=== PATIENT | female | born 1955 | race Caucasian/White ===

== ENCOUNTER → 2017-02-22 | Outpatient (CLI) | payer MEDICARE, OTHER ==
[~2017-02-22] MED LIST: AMLO10TA PO; AMLO5TAB2 PO; ASP81CT PO; ASP81TEC PO; ATOR40TA PO; CA C1TAB78 PO; CHOL200041 PO; CINN500C2 PO; CLON0.1T PO; CLOP75TA PO; DIAZ5TAB PO; DOCU250C11 PO; FENO134C PO; FISH1CAP15 PO; FURO40TA4 PO; GABA300C PO; GLIP10TA13 PO; INSU100I14 SQ; ISM60TCR PO; LEVE1U SQ; LISI20TA PO; METF500T4 PO; METO100T2 PO; MTF500T PO; MTP50T PO; PNT40TEC PO; SIMV40TA4 PO; SIMV80TA3 PO; TRAM50TA2 PO; UBID100C44 PO
== END ==
LOC: CARD 11:38
PROVIDERS: ATTEND Internal Medicine Cardiovascular Disease
DX: I35.8 Other nonrheumatic aortic valve disorders (principal); R07.89 Other chest pain; E78.2 Mixed hyperlipidemia; I11.0 Hypertensive heart disease with heart failure; E78.1 Pure hyperglyceridemia; I51.7 Cardiomegaly; I34.0 Nonrheumatic mitral (valve) insufficiency
CPT/HCPCS: 93306

== ENCOUNTER → 2017-03-01 | Outpatient (CLI) | payer MEDICARE, OTHER ==
[~2017-03-01] MED LIST changes: +CATHETER FLUSH 10 ML SYR IV PRN; +REGADENOSON 0.4 MG/5 ML SYR (LEXISCAN) IV ONE
[2017-03-01 10:06] VITALS: BP 166/68
[2017-03-01 10:08] VITALS: BP 162/70
--- NOTE | 2017-03-01 20:04 | STRESS TEST ---
DATE OF SERVICE: 03/01/2017 LEXISCAN MYOVIEW STRESS TEST: REFERRING PHYSICIAN: Dr. Cabral. Baseline heart rate is 68. Baseline blood pressure 189/88, baseline EKG is sinus rhythm with no ischemic changes. IN SUMMARY: The patient received 10.2 mCi of technetium-99 Myoview and the resting images were obtained. Then, the patient received 0.4 mg of Lexiscan followed by 28.2 mCi of technetium-99 Myoview. Throughout the test, there were no EKG changes. The resting and stress images were reviewed and compared in the short axis, horizontal long axis, and vertical long axis views. Review of the images showed reversible ischemia involving the mid to apical anterior wall, anterolateral wall or anterior septum. SSS is 14. SDS 7. TID value 1.19. On the gated images, the left ventricle appeared to be prominent with end diastolic volume 101 mL end systolic volume 44 mL. Calculated ejection fraction 57%. CONCLUSION: 1. The patient tolerated Lexiscan well. 2. Baseline hypertension persisted throughout test. 3. Breast attenuation with reversible ischemia involving the anterior wall, anterolateral wall and anterior septum. 4. Normal left ventricular size with normal contractility. Calculated ejection fraction 57%. Job ID: [id number] DocumentID: [id number] Dictated Date: 03/01/2017 17:51:47 Congressional Representative Date: 03/01/2017 19:29:03 Dictated By: BOOM MILLER MD
== END ==
LOC: CARD 07:44
PROVIDERS: ATTEND Internal Medicine Cardiovascular Disease
DX: I35.8 Other nonrheumatic aortic valve disorders (principal); R07.89 Other chest pain; E78.2 Mixed hyperlipidemia; I11.9 Hypertensive heart disease without heart failure; E78.1 Pure hyperglyceridemia; I34.0 Nonrheumatic mitral (valve) insufficiency
CPT/HCPCS: 78452; 93017

== ENCOUNTER 2017-03-05 08:13 | Day surgery (SDC) | payer MEDICARE, OTHER ==
[2017-03-05] VITALS (15 sets, daily range): BP systolic 103–175; BP diastolic 55–86
[~2017-03-05] VITALS: Ht 162.6 cm; Wt 98.9 kg
[~2017-03-05 08:13] MED LIST changes: -CATHETER FLUSH 10 ML SYR IV PRN; -REGADENOSON 0.4 MG/5 ML SYR (LEXISCAN) IV ONE
--- OUTSIDE RECORDS SUMMARY | 2017-03-05 08:18 | XMS REPORT ---
Author Author GEE AMADO Organization [employer] Address Unknown Phone Unavailable Care Team Providers Care Crew Leader Gluing Name Role Phone GEE AMADO CP Unavailable Allergies No Known Allergies Problems Problem Type Condition Code Onset Dates Condition Status Problem Need for prophylactic vaccination and inoculation, Influenza V04.81 Active Problem Other and unspecified hyperlipidemia 272.4 Active Problem Chest pain, unspecified 786.50 Active Problem Other chronic pain 338.29 Active Problem Pain in joint, forearm 719.43 Active Problem Unspecified breast screening V76.10 Active Problem Diabetes mellitus without mention of complication, type II or unspecified type, not stated as uncontrolled 250.00 Active Problem Polyneuropathy in diabetes 357.2 Active Problem Pain in joint, hand 719.44 Active Problem Closed fracture of cervical vertebra, unspecified level without mention of spinal cord injury 805.00 Active Problem Unspecified essential hypertension 401.9 Active Problem Coronary atherosclerosis of unspecified type of vessel, [place] or graft 414.00 Active Problem Diabetes mellitus without mention of complication, type II or unspecified type, uncontrolled 250.02 Active Medications No Known Medications Results No Known Results Summary Purpose eClinicalWorks Submission
--- OUTSIDE RECORDS SUMMARY | 2017-03-05 08:18 | XMS REPORT ---
Author Author GEE AMADO [facility] Address [address] [place] [address] Care Team Providers Care Rapier Insertion Loom Fixer Name Role Phone GEE AMADO Unavailable PROBLEMS Type Condition ICD9-CM Code [id number]-[id number] Code Onset Dates Condition Status SNOMED Code Problem Essential hypertension I10 Active 91322932 Problem Type 2 diabetes mellitus without complications E11.9 Active 059871369 Problem Coronary artery disease involving redd[place] coronary artery of redding heart without angina pectoris I25.10 Active 0018415257084 Problem Hyperlipidemia, unspecified hyperlipidemia type E78.5 Active 97195018 Problem Neck pain M54.2 Active 30774985 Problem Paresthesias in right hand R20.2 Active 200285886 ALLERGIES Unknown Allergies SOCIAL HISTORY No smoking Hx information available PLAN OF CARE VITAL SIGNS MEDICATIONS Unknown Medications RESULTS No Results PROCEDURES No Known procedures IMMUNIZATIONS No Known Immunizations
--- OUTSIDE RECORDS SUMMARY | 2017-03-05 08:18 | XMS REPORT | Continuity of Care Document ---
Author Author [employer] Organization [place] Address Unknown Phone Unavailable Care Team Providers Care Energy Conservation Specialist Name Role Phone [employer] Unavailable Unavailable Problems Medications Allergies, Adverse Reactions, Alerts Immunizations Results Vital Signs Encounters Procedures Plan of Care Social History Assessment and Plan Family History Value Date Source Advance Directives Order Name Results Value Date Source
--- OUTSIDE RECORDS SUMMARY | 2017-03-05 08:19 | XMS REPORT ---
Author Author GEE AMADO [facility] e[employer] Address Unknown Phone Unavailable Care Team Providers Care Impression Printer Name Role Phone GEE AMADO CP Unavailable [...] Coronary atherosclerosis of unspecified type of vessel, [place] or graft 414.00 Active Problem Diabetes mellitus without mention of complication, type II or unspecified type, uncontrolled 250.02 Active Medications Medication Code System Code Instructions Start Date End Date Status Dosage Diazepam [facility] [address]-79 5 MG Orally 2 times a day Feb 20, 2014 1 Tablet Results No Known Results Summary Purpose eClinicalWorks Submission
--- OUTSIDE RECORDS SUMMARY | 2017-03-05 08:19 | XMS REPORT ---
Author Author GEE AMADO Organization [employer] Address Unknown Phone Unavailable Care Team Providers Care Valve Technician Name Role Phone GEE AMADO CP Unavailable [...] Coronary atherosclerosis of unspecified type of vessel, [place] or graft 414.00 Active Problem Diabetes mellitus without mention of complication, type II or unspecified type, uncontrolled 250.02 Active Medications Medication Code System Code Instructions Start Date End Date Status Dosage Amlodipine Besylate [facility] [address]-08 10 MG Orally Once a day TAKE ONE TABLET BY MOUTH DAILY Results No Known Results Summary Purpose [employer]ClinicalWorks Submission
--- OUTSIDE RECORDS SUMMARY | 2017-03-05 08:19 | XMS REPORT ---
Author Author GEE AMADO [facility] eClinicalWorks Address Unknown Phone Unavailable Care Team Providers Care Tutoring Manager Name Role Phone GEE AMADO CP Unavailable [...] Coronary atherosclerosis of unspecified type of vessel, [place] or graft 414.00 Active Problem Diabetes mellitus without mention of complication, type II or unspecified type, uncontrolled 250.02 Active Medications Medication Code System Code Instructions Start Date End Date Status Dosage OneTouch Ultra Test NDC 0 ... In Vitro Apr 12, 2015 as directed Results No Known Results Summary Purpose eClinicalWorks Submission
--- OUTSIDE RECORDS SUMMARY | 2017-03-05 08:19 | XMS REPORT ---
Author Author GEE AMADO [facility] e[employer] Address Unknown Phone Unavailable Care Team Providers Care Fence Installer Name Role Phone GEE AMADO CP Unavailable Allergies No Known Allergies Problems Problem Type Condition Code Onset Dates Condition Status Problem Polyneuropathy in diabetes 357.2 Active Problem Closed fracture of cervical vertebra, unspecified level without mention of spinal cord injury 805.00 Active Problem Diabetes mellitus without mention of complication, type II or unspecified type, not stated as uncontrolled 250.00 Active Problem Neck pain M54.2 Active Problem Paresthesias in right hand R20.2 Active Problem Type 2 diabetes mellitus without complications E11.9 Active Problem Pain in joint, forearm 719.43 Active Problem Pain in joint, hand 719.44 Active Problem Unspecified breast screening V76.10 Active Problem Other chronic pain 338.29 Active Problem Diabetes mellitus without mention of complication, type II or unspecified type, uncontrolled 250.02 Active Problem Need for prophylactic vaccination and inoculation, Influenza V04.81 Active Problem Unspecified essential hypertension 401.9 Active Problem Chest pain, unspecified 786.50 Active Problem Coronary atherosclerosis of unspecified type of vessel, [place] or graft 414.00 Active Problem Other and unspecified hyperlipidemia 272.4 Active Medications Medication Code System Code Instructions Start Date End Date Status Dosage Levemir Flexpen [facility] [address]-74 100 unit/mL (3 mL) subcutaneously 2 times a day May 01, 2013 82 Unit Results No Known Results Summary Purpose eClinicalWorks Submission
--- OUTSIDE RECORDS SUMMARY | 2017-03-05 08:19 | XMS REPORT ---
Author Author GEE AMADO Organization [employer] Address Unknown Phone Unavailable Care Team Providers Care Pharmacist Name Role Phone GEE AMADO CP Unavailable Allergies No Known Allergies Problems Problem Type Condition ICD-9 Code Onset Dates Condition Status Problem Need [...] Coronary atherosclerosis of unspecified type of vessel, [place] or graft 414.00 Active Problem Diabetes mellitus without mention of complication, type II or unspecified type, uncontrolled 250.02 Active Medications Medication Code System Code Instructions Start Date End Date Status Dosage Hydrocodone-Acetaminophen [facility] [address]-03 10-325 MG Orally May 22, 2014 1 Tablet by Oral route every 4 hours Diazepam [facility] [address]-24 5 MG Orally 2 times a day Feb 20, 2014 1 Tablet Results No Known Results Summary Purpose eClinicalWorks Submission
--- OUTSIDE RECORDS SUMMARY | 2017-03-05 08:19 | XMS REPORT ---
Author Author GEE AMADO [facility] Address [address] [place] [address] Care Team Providers Care Marketing Analytics Analyst Name Role Phone GEE AMADO Unavailable PROBLEMS Type Condition ICD9-CM Code [id number] Code Onset Dates Condition Status SNOMED Code Problem Coronary artery disease involving [place] coronary artery of [place] heart without angina pectoris I25.10 Active 7388137695557 Problem Hyperlipidemia, unspecified hyperlipidemia type E78.5 Active 43847738 Problem GERD (gastroesophageal reflux disease) K21.9 Active 085449712 Problem Encounter for dental examination Z01.20 Active 937360629 Problem Type 2 diabetes mellitus without complications E11.9 Active 426980391 Problem Paresthesias in right hand R20.2 Active 493953454 Problem Essential hypertension I10 Active 10086990 Problem Neck pain M54.2 Active 61285405 ALLERGIES No Information SOCIAL HISTORY Never Assessed PLAN OF CARE VITAL SIGNS MEDICATIONS Medication Instructions Dosage Frequency Start Date End Date Duration Status OneTouch Ultra Test - USE ONE STRIP TO CHECK GLUCOSE THREE TIMES DAILY 34 Active RESULTS No Results PROCEDURES No Known procedures IMMUNIZATIONS No Known Immunizations MEDICAL (GENERAL) HISTORY Type Description Date Medical History Diabetes type 2 Medical History hypertension Medical History hyperlipidemia Medical History neck fracture Jan 2014 Surgical History cholecystectomy Surgical History hysterectomy Surgical History neck surgeryafter fracturing it in 2013 Surgical History carpal tunnel surgery; right Surgical History back surgery; discectomy Surgical History Stents 2014 Hospitalization History surgeries
--- OUTSIDE RECORDS SUMMARY | 2017-03-05 08:19 | XMS REPORT ---
Author Author GEE AMADO [facility] eClinicalWorks Address Unknown Phone Unavailable Care Team Providers Care Wind Energy Technician Name Role Phone GEE AMADO CP Unavailable Allergies No Known Allergies Problems Problem Type Condition Code Onset Dates Condition Status Problem Type 2 diabetes mellitus without complications E11.9 Active Problem Neck pain M54.2 Active Problem Essential hypertension I10 Active Problem Hyperlipidemia, unspecified hyperlipidemia type E78.5 Active Problem Paresthesias in right hand R20.2 Active Problem Coronary artery disease involving [place] coronary artery of [place] heart without angina pectoris I25.10 Active Medications Medication Code System Code Instructions Start Date End Date Status Dosage NovoLog Flexpen [facility] [address]-67 100 UNIT/ML 3 times a day May 01, 2013 inject 45 Unit by Subcutaneous route as per insulin sliding scale protocol 3 times per day tid AC Results No Known Results Summary Purpose eClinicalWorks Submission
--- OUTSIDE RECORDS SUMMARY | 2017-03-05 08:19 | XMS REPORT ---
Author Author GEE AMADO [facility] eClinicalWorks Address Unknown Phone Unavailable Care Team Providers Care Experimental Welder Name Role Phone GEE AMADO CP Unavailable [...] Coronary atherosclerosis of unspecified type of vessel, [place] or graft 414.00 Active Problem Other and unspecified hyperlipidemia 272.4 Active Medications Medication Code System Code Instructions Start Date End Date Status Dosage Metoprolol Tartrate [facility] [address]-33 100 MG Orally Once a day Mar 23, 2014 1 tablet with food Results No Known Results Summary Purpose eClinicalWorks Submission
--- OUTSIDE RECORDS SUMMARY | 2017-03-05 08:19 | XMS REPORT ---
Author Author RISA LANDEROS Organization [employer] Address Unknown Phone Unavailable Care Team Providers Care Electric Detector Operator Name Role Phone RISA LANDEROS CP Unavailable Allergies, Adverse Reactions, Alerts Substance Reaction Event Type Morphine Sulfate Info Not Available Drug Allergy Problems Problem Type Condition Code Onset Dates Condition Status Problem Type 2 diabetes mellitus without complications E11.9 Active Problem Neck pain M54.2 Active Problem Essential hypertension I10 Active Problem Hyperlipidemia, unspecified hyperlipidemia type E78.5 Active Assessment Dental caries K02.9 Active Problem Paresthesias in right hand R20.2 Active Problem Coronary artery disease involving [place] coronary artery of [place] heart without angina pectoris I25.10 Active Medications Medication Code System Code Instructions Start Date End Date Status Dosage Hydrocodone-Acetaminophen [facility] [address]-70 10-325 MG Orally every 8 hours, PRN May 22, 2014 1 tablet as needed metformin ND 0 500 mg by oral route 2 times a day May 15, 2014 1 tablet Furosemide [facility] 36294474945 40 MG Orally Once a day take 1 tablet ( 40 mg) by oral route once daily Furosemide [facility] 10292791202 40MG TAKE ONE TABLET BY MOUTH ONCE DAILY Blood Glucose Test Strip ND 0 ... subcutaneously twice daily May 16, 2015 1 test strip Metoprolol Tartrate [facility] [address]-45 100 MG Orally Once a day Mar 23, 2014 1 tablet with food Amlodipine Besylate [facility] [address]-55 10 MG Orally Once a day TAKE ONE TABLET BY MOUTH DAILY Easy Comfort Pen Zalma [facility] [address] 31G X 8 MM 4 times a day Nov as directed Amlodipine Besylate [facility] 66580609800 10MG TAKE ONE TABLET BY MOUTH ONCE DAILY Diazepam [facility] [address]-72 5 MG Orally 2 times a day Feb 20, 2014 1 Tablet Nexium [facility] [address]-90 40 mg Orally Once a day May 30, 2015 1 capsule Clonidine HCl [facility] [address]-98 0.1 MG Orally twice a day 1 tablet Fenofibrate Micronized [facility] 03392925861 134 MG TAKE ONE CAPSULE BY MOUTH ONCE DAILY WITH FOOD Clopidogrel Bisulfate [facility] 38181351120 75 MG TAKE ONE TABLET BY MOUTH ONCE DAILY Aspirin [facility] 395[address]772 81 mg Nov 13, 2011 take 1 tablet (81 mg) by oral route once daily Imdur NDC 0 60 mg August 25, 2013 take 1 tablet (60 mg) by oral route once daily in the morning Lisinopril [facility] [address]-53 20 mg Orally twice a day 1 tablet Neurontin [facility] [address]-74 600 MG Orally Three times a day June 01, 2014 1 tablet OneTouch Ultra Test [facility] 0 ... In Vitro 2 times a day Apr 12, 2015 test blood sugar Lipitor [facility] 92786163362 40 MG TAKE ONE TABLET BY MOUTH ONCE PER DAY Levemir Flexpen [facility] [address]-72 100 unit/mL (3 mL) subcutaneously 2 times a day May 01, 2013 82 Unit Procedures Procedure Coding System Code Date SURG REMOVAL ERUPTED TOOTH CPT-4 D7210 Dec 24, 2015 Vital Signs Date/Time: Dec 24, 2015 Blood Pressure Diastolic 69 mmHg Blood Pressure Systolic 149 mmHg Height 64 in Results No Known Results Summary Purpose eClinicalWorks Submission
--- OUTSIDE RECORDS SUMMARY | 2017-03-05 08:19 | XMS REPORT ---
Author Author MUNA MIRZA [facility] Address [address] [place] [address] Care Team Providers Care Receivable Manager Name Role Phone MUNA MIRZA Unavailable PROBLEMS Type Condition ICD9-CM Code [id number] Code Onset Dates Condition Status SNOMED Code Assessment Dental examination Z01.20 Jan, Active 97282890 Problem Essential hypertension I10 Active 97273471 Problem Type 2 diabetes mellitus without complications E11.9 Active 122905597 Problem Coronary artery disease involving [place] coronary artery of [place] heart without angina pectoris I25.10 Active 0142974758285 Problem Hyperlipidemia, unspecified hyperlipidemia type E78.5 Active 88541074 Problem Neck pain M54.2 Active 66271397 Problem Paresthesias in right hand R20.2 Active 465279481 ALLERGIES Unknown Allergies SOCIAL HISTORY No smoking Hx information available PLAN OF CARE VITAL SIGNS MEDICATIONS Unknown Medications RESULTS No Results PROCEDURES Procedure Date Ordered Related Diagnosis Body Site Billing Notes on claim Feb 17, 2016 IMMUNIZATIONS No Known Immunizations
--- OUTSIDE RECORDS SUMMARY | 2017-03-05 08:19 | XMS REPORT ---
Author Author GEE AMADO [facility] Address [address] [place] [address] Care Team Providers Care Supervisor Carpenters Name Role Phone GEE AMADO Unavailable PROBLEMS Type Condition ICD9-CM Code SHE47-BG Code Onset Dates Condition Status SNOMED Code Problem Coronary artery disease involving [place] coronary artery of [place] heart without angina pectoris I25.10 Active 2333329173052 Problem Hyperlipidemia, unspecified hyperlipidemia type E78.5 Active 65371455 Problem GERD (gastroesophageal reflux disease) K21.9 Active 702233999 Problem Encounter for dental examination Z01.20 Active 399534169 Problem Neck pain M54.2 Active 65203793 Problem Paresthesias in right hand R20.2 Active 616744114 Problem Essential hypertension I10 Active 51271749 Problem Type 2 diabetes mellitus without complications E11.9 Active 902348263 ALLERGIES Unknown Allergies SOCIAL HISTORY No smoking Hx information available PLAN OF CARE VITAL SIGNS MEDICATIONS Medication Instructions Dosage Frequency Start Date End Date Duration Status MetFORMIN HCl ER 500MG TAKE ONE TABLET BY MOUTH TWICE DAILY 90 Active RESULTS No Results PROCEDURES No Known procedures IMMUNIZATIONS No Known Immunizations
--- OUTSIDE RECORDS SUMMARY | 2017-03-05 08:20 | XMS REPORT ---
Author Author GEE AMADO [facility] eClinicalWorks Address Unknown Phone Unavailable Care Team Providers Care Art Historian Name Role Phone GEE AMADO CP Unavailable Allergies, Adverse Reactions, Alerts Substance Reaction Event Type Morphine Sulfate hallucinations Drug Allergy Problems Problem Type Condition Code [...] mention of spinal cord injury 805.00 Active Assessment Type 2 diabetes mellitus without complications E11.9 Active Problem Unspecified essential hypertension 401.9 Active Assessment Neck pain M54.2 Active Problem Coronary atherosclerosis of unspecified type of vessel, [place] or graft 414.00 Active Assessment Encounter for immunization Z23 Active Problem Diabetes mellitus without mention of complication, type II or unspecified type, uncontrolled 250.02 Active Medications Medication Code System Code Instructions Start Date End Date Status Dosage Neurontin [facility] [address]-52 600 mg June 01, 2014 1 Tablet 3 times per day Imdur [facility] [address]-10 60 mg August 25, 2013 take 1 tablet (60 mg) by oral route once daily in the morning Levemir Flexpen [facility] [address]-73 100 unit/mL (3 mL) May 01, 2013 inject 82 Unit by Subcutaneous route as per insulin sliding scale protocol 2 times per day 82 units AM and PM Metoprolol Tartrate [facility] [address]-68 50 mg Mar 23, 2014 take 2 tablets (100 mg) by oral route 2 times per day with meals Easy Comfort Pen [place] [facility] [address] 31G X 8 MM 4 times a day Nov as directed Lipitor [facility] 02333540452 40 MG TAKE ONE TABLET BY MOUTH ONCE PER DAY metformin ND 0 500 mg May 15, 2014 1 tablet by Oral route 2 times per day NovoLog Flexpen [facility] [address]-40 100 UNIT/ML May 01, 2013 inject 86 Unit by Subcutaneous route as per insulin sliding scale protocol 3 times per day tid AC Amlodipine Besylate [facility] 75968508670 10 MG TAKE ONE TABLET BY MOUTH DAILY Clopidogrel Bisulfate [facility] 88933433821 75 MG TAKE ONE TABLET BY MOUTH ONCE DAILY Hydrocodone-Acetaminophen [facility] [address]-06 10-325 MG Orally May 22, 2014 1 Tablet by Oral route every 4 hours Furosemide [facility] 47995946770 40 MG Orally Once a day take 1 tablet ( 40 mg) by oral route once daily Fenofibrate Micronized [facility] 48924919362 134 MG TAKE ONE CAPSULE BY MOUTH ONCE DAILY WITH FOOD Pantoprazole Sodium [facility] [address]-93 40 MG Orally Once a day TAKE ONE TABLET BY MOUTH DAILY Diazepam [facility] [address]-35 5 MG Orally 2 times a day Feb 20, 2014 1 Tablet Aspirin [facility] [address]683-[address]56 81 mg Nov 13, 2011 take 1 tablet (81 mg) by oral route once daily Lisinopril [facility] 53964145806 20 MG TAKE ONE TABLET BY MOUTH TWICE DAILY (MUST HAVE APPOINTMENT FOR ADDITIONAL REFILLS) Procedures Procedure Coding System Code Date X-RAY EXAM OF NECK SPINE CPT-4 73467 Jan 01, 2015 FLUARIX QUAD (3 & UP)-[employer]-2014 CPT-4 29103 Jan 01, 2015 GLYCATED HEMOGLOBIN TEST CPT-4 13695 Jan 01, 2015 Office Visit, Est Pt., Level 3 CPT-4 31484 Jan 01, 2015 SINGLE IMMUNIZATION ADMIN CPT-4 04667 Jan 01, 2015 Vital Signs Date/Time: Jan 01, 2015 Temperature 98.3 F Weight 191.8 lbs Height 64 in BMI 32.92 Index Blood Pressure Diastolic 88 mmHg Blood Pressure Systolic 160 mmHg Cardiac Monitoring Heart Rate 96 bpm Results Name Result Date Reference Range Unit Abnormality Flag A1C (IN HOUSE) Xray : Spine, Cervical (IN HOUSE) Immunizations Vaccine Administration Date FLUARIX QUAD (3 & UP)-[facility]-2014Jan 01, 2015 Summary Purpose eClinicalWorks Submission
--- OUTSIDE RECORDS SUMMARY | 2017-03-05 08:20 | XMS REPORT ---
Author Author GEE AMADO [facility] eClinicalWorks Address Unknown Phone Unavailable Care Team Providers Care Travel Registered Nurse Icu Name Role Phone GEE AMADO CP Unavailable [...] Coronary atherosclerosis of unspecified type of vessel, [place] or graft 414.00 Active Problem Other and unspecified hyperlipidemia 272.4 Active Medications Medication Code System Code Instructions Start Date End Date Status Dosage Nexium [facility] [address]-54 40 mg Orally Once a day May 30, 2015 1 capsule Neurontin [facility] [address]-86 600 MG Orally Three times a day June 01, 2014 1 tablet Results No Known Results Summary Purpose eClinicalWorks Submission
--- OUTSIDE RECORDS SUMMARY | 2017-03-05 08:20 | XMS REPORT ---
Author Author GEE AMADO Organization [employer]ClinicalWorks Address Unknown Phone Unavailable Care Team Providers Care Thermoforming Operator Name Role Phone GEE AMADO CP Unavailable [...] Coronary atherosclerosis of unspecified type of vessel, [place] or graft 414.00 Active Problem Diabetes mellitus without mention of complication, type II or unspecified type, uncontrolled 250.02 Active Medications Medication Code System Code Instructions Start Date End Date Status Dosage Levemir Flexpen NDC 0 100 unit/mL (3 mL) May 01, 2013 inject 82 Unit by Subcutaneous route as per insulin sliding scale protocol 2 times per day 82 units [place] [address]-47 100 UNIT/ML May 01, 2013 inject 86 Unit by Subcutaneous route as per insulin sliding scale protocol 3 times per day tid AC Easy Comfort Pen [place] [facility] [address] 31G X 8 MM 4 times a day Nov as directed Results No Known Results Summary Purpose eClinicalWorks Submission
--- OUTSIDE RECORDS SUMMARY | 2017-03-05 08:20 | XMS REPORT ---
Author Author GEE AMADO [facility] eClinicalWorks Address Unknown Phone Unavailable Care Team Providers Care Deckhand Maintenance Name Role Phone GEE AMADO CP Unavailable [...] Coronary atherosclerosis of unspecified type of vessel, [place] or graft 414.00 Active Problem Diabetes mellitus without mention of complication, type II or unspecified type, uncontrolled 250.02 Active Medications Medication Code System Code Instructions Start Date End Date Status Dosage metformin NDC 0 500 mg May 15, 2014 1 tablet by Oral route 2 times per day Neurontin NDC [address]-96 600 mg June 01, 2014 1 Tablet 3 times per day Results No Known Results Summary Purpose eClinicalWorks Submission
--- OUTSIDE RECORDS SUMMARY | 2017-03-05 08:20 | XMS REPORT ---
Author Author MUNA MIRZA Organization [facility] Address [address] [place] [address] Care Team Providers Care Die Keeper Name Role Phone MUNA MIRZA Unavailable PROBLEMS Type Condition ICD9-CM Code [id number] Code Onset Dates Condition Status SNOMED Code Problem Coronary artery disease involving [place] coronary artery of [place] heart without angina pectoris I25.10 Active 8863545623796 Problem Hyperlipidemia, unspecified hyperlipidemia type E78.5 Active 20860254 Problem GERD (gastroesophageal reflux disease) K21.9 Active 794548431 Problem Encounter for dental examination Z01.20 Active 879198772 Problem Neck pain M54.2 Active 10707240 Problem Paresthesias in right hand R20.2 Active 162212007 Problem Essential hypertension I10 Active 15135904 Problem Type 2 diabetes mellitus without complications E11.9 Active 435552184 ALLERGIES Substance Reaction Event Type Date Status Morphine Sulfate Unknown Drug Allergy Feb, Active SOCIAL HISTORY No smoking Hx information available PLAN OF CARE Activity Details Follow Up First Available Reason:Restorative VITAL SIGNS Heart Rate 62 bpm 2016-03-12 Blood pressure systolic 142 mmHg 2016-03-12 Blood pressure diastolic 70 mmHg 2016-03-12 MEDICATIONS Medication Instructions Dosage Frequency Start Date End Date Duration Status Easy Comfort Pen [place] 31G X 8 MM as directed 6h Nov, Active Metoprolol Tartrate 100 MG Orally Once a day 1 tablet with food 24h Mar Active Clopidogrel Bisulfate 75 MG TAKE ONE TABLET BY MOUTH ONCE DAILY 90 Active Fenofibrate Micronized 134 MG TAKE ONE CAPSULE BY MOUTH ONCE DAILY WITH FOOD 90 Active Amlodipine Besylate 10 MG Orally Once a day TAKE ONE TABLET BY MOUTH DAILY 24h Active Furosemide 40 MG Orally Once a day take 1 tablet (40 mg) by oral route once daily 24h 30 Active Neurontin 600 MG Orally Three times a day 1 tablet 8h 30 Active MetFORMIN HCl ER 500MG TAKE ONE TABLET BY MOUTH TWICE DAILY 90 Active Lisinopril 20 mg Orally twice a day 1 tablet 12h Active Hydrocodone-Acetaminophen 10-325 MG Orally every 8 hours, PRN 1 tablet as needed May, Active Clonidine HCl 0.1 MG Orally twice a day 1 tablet 12h Active Lipitor 40 MG TAKE ONE TABLET BY MOUTH ONCE PER DAY 90 Active Nexium 40 MG TAKE ONE CAPSULE BY MOUTH ONCE DAILY. 30 Active Levemir Flexpen 100 unit/mL (3 mL) subcutaneously 2 times a day 82 Unit 12h Apr, Active Aspirin 81 mg take 1 tablet (81 mg) by oral route once daily Oct, Active NovoLog Flexpen 100 UNIT/ML inject 45 Unit by Subcutaneous route as per insulin sliding scale protocol 3 times per day tid AC 8h Apr, Active OneTouch Ultra Test ... In Vitro 2 times a day test blood sugar 12h Mar Active Blood Glucose Test Strip ... subcutaneously 3 times a day 1 test strip 8h Apr, Active RESULTS No Results PROCEDURES Procedure Date Ordered Related Diagnosis Body Site COMP ORAL EVALUATION - NEW/EST PT Mar 12, 2016 INTRAORL-PERIAPICAL 1 FILM [id number] Mar 12, 2016 TOPICAL FLUORIDE VARNISH Mar 12, 2016 PROPHYLAXIS - ADULT Mar 12, 2016 INTRAORL-PERIAPICAL EA ADD FILM Mar 12, 2016 INTRAORL-PERIAPICAL EA ADD FILM Mar 12, 2016 PANORAMIC FILM SEE ALSO CODE [id number] Mar 12, 2016 BITEWINGS - FOUR FILMS Mar 12, 2016 IMMUNIZATIONS No Known Immunizations
--- OUTSIDE RECORDS SUMMARY | 2017-03-05 08:20 | XMS REPORT ---
Author Author GEE AMADO [facility] eClinicalWorks Address Unknown Phone Unavailable Care Team Providers Care Director Of Blood Name Role Phone GEE AMADO CP Unavailable [...] Coronary atherosclerosis of unspecified type of vessel, [place] or graft 414.00 Active Problem Diabetes mellitus without mention of complication, type II or unspecified type, uncontrolled 250.02 Active Medications Medication Code System Code Instructions Start Date End Date Status Dosage OneTouch Ultra Test NDC 0 ... In Vitro Apr 12, 2015 as directed Results No Known Results Summary Purpose eClinicalWorks Submission
--- OUTSIDE RECORDS SUMMARY | 2017-03-05 08:20 | XMS REPORT ---
Author Author GEE AMADO [facility] Address [address] [place] [address] Care Team Providers Care Senior Data Architect Name Role Phone GEE AMADO Unavailable PROBLEMS Type Condition ICD9-CM Code [id number] Code Onset Dates Condition Status SNOMED Code Assessment Type 2 diabetes mellitus without complications E11.9 Feb, Active 621654983 Problem Essential hypertension I10 Active 58236832 Problem Type 2 diabetes mellitus without complications E11.9 Active 268277486 Problem Coronary artery disease involving [place] coronary artery of [place] heart without angina pectoris I25.10 Active 7414305687729 Problem Hyperlipidemia, unspecified hyperlipidemia type E78.5 Active 06459990 Problem Neck pain M54.2 Active 38151959 Problem Paresthesias in right hand R20.2 Active 777036155 ALLERGIES Substance Reaction Event Type Date Status Morphine Sulfate Unknown Drug Allergy Feb, Active SOCIAL HISTORY No smoking Hx information available PLAN OF CARE VITAL SIGNS Height 64 in 2016-02-28 Weight 210.8 lbs 2016-02-28 Heart Rate 64 bpm 2016-02-28 Respiratory Rate 18 2016-02-28 BMI 36.18 kg/m2 2016-02-28 Blood pressure systolic 126 mmHg 2016-02-28 Blood pressure diastolic 76 mmHg 2016-02-28 MEDICATIONS Medication Instructions Dosage Frequency Start Date End Date Duration Status OneTouch Ultra Test ... In Vitro 2 times a day test blood sugar 12h Mar Active Imdur 60 mg take 1 tablet (60 mg) by oral route once daily in the morning Aug, Active Metoprolol Tartrate 100 MG Orally Once a day 1 tablet with food 24h Mar Active Clopidogrel Bisulfate 75 MG TAKE ONE TABLET BY MOUTH ONCE DAILY 90 Active Levemir Flexpen 100 unit/mL (3 mL) subcutaneously 2 times a day 82 Unit 12h 10 Apr, 2013 Active Lisinopril 20 mg Orally twice a day 1 tablet 12h Active Aspirin 81 mg take 1 tablet (81 mg) by oral route once daily Oct, Active Neurontin 600 MG Orally Three times a day 1 tablet 8h 30 Active Blood Glucose Test Strip ... subcutaneously 3 times a day 1 test strip 8h 25 Apr, 2015 Active Amlodipine Besylate 10 MG Orally Once a day TAKE ONE TABLET BY MOUTH DAILY 24h Active Hydrocodone-Acetaminophen 10-325 MG Orally every 8 hours, PRN 1 tablet as needed May, Active Clonidine HCl 0.1 MG Orally twice a day 1 tablet 12h Active Furosemide 40 MG Orally Once a day take 1 tablet (40 mg) by oral route once daily 24h 30 Active MetFORMIN HCl ER 500MG TAKE ONE TABLET BY MOUTH TWICE DAILY 90 Active Fenofibrate Micronized 134 MG TAKE ONE CAPSULE BY MOUTH ONCE DAILY WITH FOOD 90 Active Lipitor 40 MG TAKE ONE TABLET BY MOUTH ONCE PER DAY 90 Active NovoLog Flexpen 100 UNIT/ML inject 45 Unit by Subcutaneous route as per insulin sliding scale protocol 3 times per day tid AC 8h 10 Apr, 2013 Active Easy Comfort Pen [place] 31G X 8 MM as directed 6h Nov, Active Nexium 40 MG TAKE ONE CAPSULE BY MOUTH ONCE DAILY. 30 Active RESULTS Name Result Date Reference Range A1C (IN HOUSE) 2016-02-28 A1C IN HOUSE 6.4 4.3 - 5.6 % Previous A1c 6.0 Lot [id number] Exp date PROCEDURES Procedure Date Ordered Related Diagnosis Body Site GLYCATED HEMOGLOBIN TEST Feb 28, 2016 [facility] VISIT ESTABLISHED PATIENT Feb 28, 2016 Office Visit, Est Pt., Level 3 Feb 28, 2016 IMMUNIZATIONS No Known Immunizations
--- OUTSIDE RECORDS SUMMARY | 2017-03-05 08:20 | XMS REPORT ---
Author Author GEE AMADO Organization eClinicalWorks Address Unknown Phone Unavailable Care Team Providers Care Holter Scanning Technician Name Role Phone GEE AMADO CP [...] Active Problem Other chronic pain 338.29 Active Assessment GERD (gastroesophageal reflux disease) K21.9 Active Problem Diabetes mellitus without mention of complication, type II or unspecified type, uncontrolled 250.02 Active Problem Need for prophylactic vaccination and inoculation, Influenza V04.81 Active Problem Unspecified essential hypertension 401.9 Active Problem Chest pain, unspecified 786.50 Active Problem Coronary atherosclerosis of unspecified type of vessel, [place] or graft 414.00 Active Problem Other and unspecified hyperlipidemia 272.4 Active Medications Medication Code System Code Instructions Start Date End Date Status Dosage Nexium [facility] [address]-03 40 mg Orally Once a day May 30, 2015 1 capsule Results No Known Results Summary Purpose eClinicalWorks Submission
--- OUTSIDE RECORDS SUMMARY | 2017-03-05 08:20 | XMS REPORT ---
Author Author LETI RISA [facility] Address Unknown Care Team Providers Care Hog Counter Name Role Phone RISA LANDEROS Unavailable PROBLEMS Type Condition ICD9-CM Code [id number] Code Onset Dates Condition Status SNOMED Code Problem Type 2 diabetes mellitus without complications E11.9 Active 869913043 Problem Neck pain M54.2 Active 83559221 Problem Hyperlipidemia, unspecified hyperlipidemia type E78.5 Active 41044556 Assessment Dental examination Z01.20 Oct, Active 931185842 Problem Paresthesias in right hand R20.2 Active 540913515 Problem Coronary artery disease involving [place] coronary artery of [place] heart without angina pectoris I25.10 Active 2348170510353 ALLERGIES Substance Reaction Event Type Date Status Morphine Sulfate Unknown Drug Allergy Oct, Active SOCIAL HISTORY No smoking Hx information available PLAN OF CARE VITAL SIGNS Blood pressure systolic 134 mmHg 2015-11-06 Blood pressure diastolic 72 mmHg 2015-11-06 MEDICATIONS Medication Instructions Dosage Frequency Start Date End Date Duration Status Albuterol Sulfate 108 (90 Base) MCG/ACT Inhalation every 4 hrs 1 puff as needed 4h May, Active Furosemide 40 MG Orally Once a day take 1 tablet (40 mg) by oral route once daily 24h 30 Active Clopidogrel Bisulfate 75 MG TAKE ONE TABLET BY MOUTH ONCE DAILY 90 Active MetFORMIN HCl ER 500MG TAKE ONE TABLET BY MOUTH TWICE DAILY 90 Active metformin 500 mg by oral route 2 times a day 1 tablet 12h Apr, Active OneTouch Ultra Test ... In Vitro 2 times a day test blood sugar 12h Mar Active Fenofibrate Micronized 134 MG TAKE ONE CAPSULE BY MOUTH ONCE DAILY WITH FOOD 90 Active NovoLog Flexpen 100 UNIT/ML inject 86 Unit by Subcutaneous route as per insulin sliding scale protocol 3 times per day tid AC Apr, Active Lisinopril 20 mg Orally twice a day 1 tablet 12h Active Metoprolol Tartrate 50 mg take 2 tablets (100 mg) by oral route 2 times per day with meals Mar, Active Neurontin 600 MG Orally Three times a day 1 tablet 8h May, Active Lipitor 40 MG TAKE ONE TABLET BY MOUTH ONCE PER DAY 90 Active Blood Glucose Test Strip ... subcutaneously twice daily 1 test strip Apr, Active Hydrocodone-Acetaminophen 10-325 MG 1 Tablet by Oral route every 4 hours May, Active Easy Comfort Pen [place] 31G X 8 MM as directed 6h Nov, Active Amlodipine Besylate 10 MG Orally Once a day TAKE ONE TABLET BY MOUTH DAILY 24h Active Furosemide 40MG TAKE ONE TABLET BY MOUTH ONCE DAILY 60 Active Diazepam 5 MG Orally 2 times a day 1 Tablet 12h Feb, Active Levemir Flexpen 100 unit/mL (3 mL) subcutaneously 2 times a day 82 Unit 12h Apr, Active Imdur 60 mg take 1 tablet (60 mg) by oral route once daily in the morning Aug, Active Aspirin 81 mg take 1 tablet (81 mg) by oral route once daily Oct, Active MS Contin 30 MG 1 tablet by Oral route every 12 hours May, Active Nexium 40 mg Orally Once a day 1 capsule 24h May, Active RESULTS No Results PROCEDURES Procedure Date Ordered Related Diagnosis Body Site LTD ORAL EVALUATION - PROBLEM FOCUS Nov 06, 2015 INTRAORL-PERIAPICAL 1 FILM [id number] Nov 06, 2015 BITEWING - SINGLE FILM Nov 06, 2015 IMMUNIZATIONS No Known Immunizations
--- OUTSIDE RECORDS SUMMARY | 2017-03-05 08:21 | XMS REPORT | Continuity of Care Document ---
Author Author [facility] Address Unknown Phone Unavailable Allergies Active Description Code Type Severity Reaction Onset Reported/Identified Relationship to Patient Clinical Status Yes No Known Drug Allergies [id number] Drug Allergy Unknown N/A 11/13/2011 Medications There is no data. Problems Date Dx Coded Attending Type Code Diagnosis Diagnosed By 11/13/2011 GEE AMADO MD 786.50 UNSPECIFIED CHEST PAIN 11/13/2011 GEE AMADO MD 786.50 UNSPECIFIED CHEST PAIN 11/13/2011 GEE AMADO MD 786.50 UNSPECIFIED CHEST PAIN 11/13/2011 786.50 UNSPECIFIED CHEST PAIN 11/13/2011 786.50 UNSPECIFIED CHEST PAIN 11/13/2011 IBAN DAVALOS DDS 786.50 UNSPECIFIED CHEST PAIN 11/13/2011 IBAN DAVALOS DDS 786.50 UNSPECIFIED CHEST PAIN 11/13/2011 GEE AMADO MD 786.50 UNSPECIFIED CHEST PAIN 11/13/2011 ARUNA WADE DOA K 786.50 UNSPECIFIED CHEST PAIN 11/13/2011 IBAN DAVALOS DDS 786.50 UNSPECIFIED CHEST PAIN 11/13/2011 GEE AMADO MD 786.50 UNSPECIFIED CHEST PAIN 11/13/2011 JOELLE DAVALOS DDS 786.50 UNSPECIFIED CHEST PAIN 11/13/2011 WADE DO, JUSTICE K 786.50 UNSPECIFIED CHEST PAIN 11/13/2011 WADE , JUSTICE K 786.50 UNSPECIFIED CHEST PAIN 11/13/2011 MELINDA BREEN VAN A 786.50 UNSPECIFIED CHEST PAIN 11/13/2011 IBAN DAVALSO DDS 786.50 UNSPECIFIED CHEST PAIN 11/13/2011 GEE AMADO MD 786.50 UNSPECIFIED CHEST PAIN 11/13/2011 GEE AMADO MD 786.50 UNSPECIFIED CHEST PAIN 11/13/2011 LALITO TERRAZAS APRN 786.50 UNSPECIFIED CHEST PAIN 11/13/2011 GEE AMADO MD 786.50 UNSPECIFIED CHEST PAIN 11/13/2011 INGRIS MARAVILLA, GEE 786.50 UNSPECIFIED CHEST PAIN 11/13/2011 INGRIS MARAVILLA, GEE 786.50 UNSPECIFIED CHEST PAIN 11/13/2011 INGRIS MARAVILLA, GEE 786.50 UNSPECIFIED CHEST PAIN 11/13/2011 INGRIS MARAVILLA, GEE 786.50 UNSPECIFIED CHEST PAIN 11/16/2011 Ot 250.02 DIAB SHAHRAM WO COMPL, TYPE II OR UNSPEC TY 11/16/2011 Ot 272.4 HYPERLIPIDEMIA NEC/NOS 11/16/2011 Ot 275.2 DIS MAGNESIUM METABOLISM 11/16/2011 Ot 276.1 HYPOSMOLALITY 11/16/2011 Ot 401.9 HYPERTENSION NOS 11/16/2011 Ot 411.1 INTERMED CORONARY SYND 11/16/2011 Ot 414.01 CORONARY ATHEROSCLEROSIS OF [place] CORON 11/16/2011 Ot 530.81 ESOPHAGEAL REFLUX 11/16/2011 Ot V15.82 HISTORY OF TOBACCO USE 11/16/2011 Ot V45.82 PERCUTANEOUS TRANSLUM CORON ANGIOPLASTY 12/16/2011 GEE AMADO MD 250.02 DIABETES II UNCONTROLLED (UNCOMPLICATED) 12/16/2011 GEE AMADO MD 401.9 HYPERTENSION, UNSPECIFIED ESSENTIAL 12/16/2011 GEE AMADO MD 414.00 CAD 12/16/2011 EGE AMADO MD 250.02 DIABETES II UNCONTROLLED (UNCOMPLICATED) 12/16/2011 GEE AMADO MD 401.9 HYPERTENSION, UNSPECIFIED ESSENTIAL 12/16/2011 GEE AMADO MD 414.00 CAD 12/16/2011 GEE AMADO MD 250.02 DIABETES II UNCONTROLLED (UNCOMPLICATED) 12/16/2011 GEE AMADO MD 401.9 HYPERTENSION, UNSPECIFIED ESSENTIAL 12/16/2011 GEE AMADO MD 414.00 CAD 12/16/2011 250.02 DIABETES II UNCONTROLLED (UNCOMPLICATED) 12/16/2011 401.9 HYPERTENSION, UNSPECIFIED ESSENTIAL 12/16/2011 414.00 CAD 12/16/2011 250.02 DIABETES II UNCONTROLLED (UNCOMPLICATED) 12/16/2011 401.9 HYPERTENSION, UNSPECIFIED ESSENTIAL 12/16/2011 414.00 CAD 12/16/2011 WHITE DDS, IBAN D 250.02 DIABETES II UNCONTROLLED (UNCOMPLICATED) 12/16/2011 WHITE DDS, IBAN D 401.9 HYPERTENSION, UNSPECIFIED ESSENTIAL 12/16/2011 WHITE DDS, IBAN D 414.00 CAD 12/16/2011 WHITE DDS, IBAN Phillip 250.02 DIABETES II UNCONTROLLED (UNCOMPLICATED) 12/16/2011 WHITE DDS, IBAN Phillip 401.9 HYPERTENSION, UNSPECIFIED ESSENTIAL 12/16/2011 WHITE DDS, IBAN Phillip 414.00 CAD 12/16/2011 GEE AMADO MD 250.02 DIABETES II UNCONTROLLED (UNCOMPLICATED) 12/16/2011 GEE AMADO MD 401.9 HYPERTENSION, UNSPECIFIED ESSENTIAL 12/16/2011 GEE AMADO MD 414.00 CAD 12/16/2011 WADE DO, JUSTICE K 250.02 DIABETES II UNCONTROLLED (UNCOMPLICATED) 12/16/2011 WADE DO, JUSTICE K 401.9 HYPERTENSION, UNSPECIFIED ESSENTIAL 12/16/2011 WADE DO, JUSTICE K 414.00 CAD 12/16/2011 WHITE DDS, IBAN Phillip 250.02 DIABETES II UNCONTROLLED (UNCOMPLICATED) 12/16/2011 WHITE DDSIBAN 401.9 HYPERTENSION, UNSPECIFIED ESSENTIAL 12/16/2011 WHITE DDSIBAN 414.00 CAD 12/16/2011 GEE AMADO MD 250.02 DIABETES II UNCONTROLLED (UNCOMPLICATED) 12/16/2011 GEE AMADO MD 401.9 HYPERTENSION, UNSPECIFIED ESSENTIAL 12/16/2011 GEE AMADO MD 414.00 CAD 12/16/2011 WHITE DDS, JOELLE J 250.02 DIABETES II UNCONTROLLED (UNCOMPLICATED) 12/16/2011 WHITE DDS, JOELLE J 401.9 HYPERTENSION, UNSPECIFIED ESSENTIAL 12/16/2011 WHITE DDSYUEON J 414.00 CAD 12/16/2011 WADE DO, JUSTICE K 250.02 DIABETES II UNCONTROLLED (UNCOMPLICATED) 12/16/2011 WADE DO, JUSTICE K 401.9 HYPERTENSION, UNSPECIFIED ESSENTIAL 12/16/2011 WADE DO, JUSTICE K 414.00 CAD 12/16/2011 WADE DO, JUSTICE K 250.02 DIABETES II UNCONTROLLED (UNCOMPLICATED) 12/16/2011 WADE DO, JUSTICE K 401.9 HYPERTENSION, UNSPECIFIED ESSENTIAL 12/16/2011 WADE DO, JUSTICE K 414.00 CAD 12/16/2011 MELINDA CASE WORK AIDE, VAN A 250.02 DIABETES II UNCONTROLLED (UNCOMPLICATED) 12/16/2011 MELINDA CASE WORK AIDE, VAN A 401.9 HYPERTENSION, UNSPECIFIED ESSENTIAL 12/16/2011 MELINDA CASE WORK AIDE, VAN A 414.00 CAD 12/16/2011 WHITE DDS, IBAN D 250.02 DIABETES II UNCONTROLLED (UNCOMPLICATED) 12/16/2011 WHITE DDS, IBAN D 401.9 HYPERTENSION, UNSPECIFIED ESSENTIAL 12/16/2011 WHITE DDS, IBAN D 414.00 CAD 12/16/2011 INGRIS MARAVILLA, GEE 250.02 DIABETES II UNCONTROLLED (UNCOMPLICATED) 12/16/2011 INGRIS MARAVILLA, GEE 401.9 HYPERTENSION, UNSPECIFIED ESSENTIAL 12/16/2011 INGRIS MARAVILLA, GEE 414.00 CAD 12/16/2011 INGRIS MARAVILLA, GEE 250.02 DIABETES II UNCONTROLLED (UNCOMPLICATED) 12/16/2011 GEE AMADO MD 401.9 HYPERTENSION, UNSPECIFIED ESSENTIAL 12/16/2011 INGRIS MARAVILLA, GEE 414.00 CAD 12/16/2011 NINI CASE WORK AIDE, LALITO L 250.02 DIABETES II UNCONTROLLED (UNCOMPLICATED) 12/16/2011 MADCarlos CASE WORK AIDE, LALITO L 401.9 HYPERTENSION, UNSPECIFIED ESSENTIAL 12/16/2011 NINI CASE WORK AIDE, LALITO L 414.00 CAD 12/16/2011 GEE AMADO MD 250.02 DIABETES II UNCONTROLLED (UNCOMPLICATED) 12/16/2011 GEE AMADO MD 401.9 HYPERTENSION, UNSPECIFIED ESSENTIAL 12/16/2011 INGRIS MARAVILLA, GEE 414.00 CAD 12/16/2011 INGRIS MARAVILLA, GEE 250.02 DIABETES II UNCONTROLLED (UNCOMPLICATED) 12/16/2011 GEE AMADO MD 401.9 HYPERTENSION, UNSPECIFIED ESSENTIAL 12/16/2011 INGRIS MARAVILLA, GEE 414.00 CAD 12/16/2011 GEE AMADO MD 250.02 DIABETES II UNCONTROLLED (UNCOMPLICATED) 12/16/2011 GEE AMADO MD 401.9 HYPERTENSION, UNSPECIFIED ESSENTIAL 12/16/2011 INGRIS MARAVILLA, GEE 414.00 CAD 12/16/2011 INGRIS MARAVILLA, GEE 250.02 DIABETES II UNCONTROLLED (UNCOMPLICATED) 12/16/2011 GEE AMADO MD 401.9 HYPERTENSION, UNSPECIFIED ESSENTIAL 12/16/2011 INGRIS MARAVILLA, GEE 414.00 CAD 12/16/2011 INGRIS MARAIVLLA, GEE 250.02 DIABETES II UNCONTROLLED (UNCOMPLICATED) 12/16/2011 GEE AMADO MD 401.9 HYPERTENSION, UNSPECIFIED ESSENTIAL 12/16/2011 INGRIS MARAVILLA, GEE 414.00 CAD 01/14/2012 GEE AMADO MD V04.81 FLU DX (3 YRS AND ABOVE, IM) 01/14/2012 GEE AMADO MD V04.81 FLU DX (3 YRS AND ABOVE, IM) 01/14/2012 GEE AMADO MD V04.81 FLU DX (3 YRS AND ABOVE, IM) 01/14/2012 V04.81 FLU DX (3 YRS AND ABOVE, IM) 01/14/2012 V04.81 FLU DX (3 YRS AND ABOVE, IM) 01/14/2012 SUSANNAH DDS, IBAN Phillip V04.81 FLU DX (3 YRS AND ABOVE, IM) 01/14/2012 WHITE DDS, IBAN Phillip V04.81 FLU DX (3 YRS AND ABOVE, IM) 01/14/2012 GEE AMADO MD V04.81 FLU DX (3 YRS AND ABOVE, IM) 01/14/2012 WADE DO, JUSTICE K V04.81 FLU DX (3 YRS AND ABOVE, IM) 01/14/2012 SUSANNAH BANUELOSS, IBAN Phillip V04.81 FLU DX (3 YRS AND ABOVE, IM) 01/14/2012 GEE AMADO MD V04.81 FLU DX (3 YRS AND ABOVE, IM) 01/14/2012 SUSANNAH BANUELOSS, JOELLE French V04.81 FLU DX (3 YRS AND ABOVE, IM) 01/14/2012 WADE DO, JUSTICE K V04.81 FLU DX (3 YRS AND ABOVE, IM) 01/14/2012 WADE DO, JUSTICE K V04.81 FLU DX (3 YRS AND ABOVE, IM) 01/14/2012 MELINDA BREEN, VAN Cleary V04.81 FLU DX (3 YRS AND ABOVE, IM) 01/14/2012 SUSANNAH BANUELOSS, IBAN Phillip V04.81 FLU DX (3 YRS AND ABOVE, IM) 01/14/2012 GEE AMADO MD V04.81 FLU DX (3 YRS AND ABOVE, IM) 01/14/2012 GEE AMADO MD V04.81 FLU DX (3 YRS AND ABOVE, IM) 01/14/2012 LALITO TERRAZAS APRN V04.81 FLU DX (3 YRS AND ABOVE, IM) 01/14/2012 GEE AMADO MD V04.81 FLU DX (3 YRS AND ABOVE, IM) 01/14/2012 GEE AMADO MD4.81 FLU DX (3 YRS AND ABOVE, IM) 01/14/2012 GEE AMADO MD V04.81 FLU DX (3 YRS AND ABOVE, IM) 01/14/2012 GEE AMADO MD V04.81 FLU DX (3 YRS AND ABOVE, IM) 01/14/2012 GEE AMADO MD V04.81 FLU DX (3 YRS AND ABOVE, IM) 04/13/2012 GEE AMADO MD 272.4 HYPERLIPIDEMIA 04/13/2012 GEE AMADO MD 272.4 HYPERLIPIDEMIA 04/13/2012 GEE AMADO MD 272.4 HYPERLIPIDEMIA 04/13/2012 272.4 HYPERLIPIDEMIA 04/13/2012 272.4 HYPERLIPIDEMIA 04/13/2012 WHITE DDS, IBAN D 272.4 HYPERLIPIDEMIA 04/13/2012 WHITE DDS, IBAN D 272.4 HYPERLIPIDEMIA 04/13/2012 GEE AMADO MD 272.4 HYPERLIPIDEMIA 04/13/2012 WADE DO, JUSTICE K 272.4 HYPERLIPIDEMIA 04/13/2012 WHITE DDS, IBAN D 272.4 HYPERLIPIDEMIA 04/13/2012 GEE AMADO MD 272.4 HYPERLIPIDEMIA 04/13/2012 WHITE DDS, JOELLE J 272.4 HYPERLIPIDEMIA 04/13/2012 WADE DO, JUSTICE K 272.4 HYPERLIPIDEMIA 04/13/2012 WADE DO, JUSTICE K 272.4 HYPERLIPIDEMIA 04/13/2012 VAN LAWRENCE APRN 272.4 HYPERLIPIDEMIA 04/13/2012 WHITE DDS, IBAN D 272.4 HYPERLIPIDEMIA 04/13/2012 GEE AMADO MD 272.4 HYPERLIPIDEMIA 04/13/2012 GEE AMADO MD 272.4 HYPERLIPIDEMIA 04/13/2012 LALITO TERRAZAS APRN 272.4 HYPERLIPIDEMIA 04/13/2012 GEE AMADO MD 272.4 HYPERLIPIDEMIA 04/13/2012 GEE AMADO MD 272.4 HYPERLIPIDEMIA 04/13/2012 GEE AMADO MD 272.4 HYPERLIPIDEMIA 04/13/2012 GEE AMADO MD 272.4 HYPERLIPIDEMIA 05/10/2012 GEE AMADO MD 250.00 DIABETES MELLITUS POORLY CONTROLLED 05/10/2012 GEE AMADO MD 250.00 DIABETES MELLITUS POORLY CONTROLLED 05/10/2012 250.00 DIABETES MELLITUS POORLY CONTROLLED 05/10/2012 250.00 DIABETES MELLITUS POORLY CONTROLLED 05/10/2012 WHITE DDS, IBAN Phillip 250.00 DIABETES MELLITUS POORLY CONTROLLED 05/10/2012 WHITE DDS, IBAN D 250.00 DIABETES MELLITUS POORLY CONTROLLED 05/10/2012 GEE AMADO MD 250.00 DIABETES MELLITUS POORLY CONTROLLED 05/10/2012 WADE DO JUSTICE K 250.00 DIABETES MELLITUS POORLY CONTROLLED 05/10/2012 WHITE LAKISHAS, IBAN Phillip 250.00 DIABETES MELLITUS POORLY CONTROLLED 05/10/2012 GEE AMADO MD 250.00 DIABETES MELLITUS POORLY CONTROLLED 05/10/2012 WHITE DDS, JOELLE French 250.00 DIABETES MELLITUS POORLY CONTROLLED 05/10/2012 WADE DO, JUSTICE K 250.00 DIABETES MELLITUS POORLY CONTROLLED 05/10/2012 WADE DO, JUSTICE K 250.00 DIABETES MELLITUS POORLY CONTROLLED 05/10/2012 VAN LAWRENCE APRN 250.00 DIABETES MELLITUS POORLY CONTROLLED 05/10/2012 WHITE APRIL, IBAN Phillip 250.00 DIABETES MELLITUS POORLY CONTROLLED 05/10/2012 GEE AMADO MD 250.00 DIABETES MELLITUS POORLY CONTROLLED 05/10/2012 GEE AMADO MD 250.00 DIABETES MELLITUS POORLY CONTROLLED 05/10/2012 LALITO TERRAZAS APRN 250.00 DIABETES MELLITUS POORLY CONTROLLED 05/10/2012 GEE MAADO MD 250.00 DIABETES MELLITUS POORLY CONTROLLED 05/10/2012 GEE AMADO MD 250.00 DIABETES MELLITUS POORLY CONTROLLED 05/10/2012 GEE AMADO MD 250.00 DIABETES MELLITUS POORLY CONTROLLED 05/10/2012 GEE AMADO MD 250.00 DIABETES MELLITUS POORLY CONTROLLED 10/10/2012 357.2 POLYNEUROPATHY IN DIABETES 10/10/2012 IBAN DAVALOS DDS 357.2 POLYNEUROPATHY IN DIABETES 10/10/2012 IBAN DAVALOS DDS 357.2 POLYNEUROPATHY IN DIABETES 10/10/2012 GEE AMADO MD 357.2 POLYNEUROPATHY IN DIABETES 10/10/2012 JUSTICE WADE DO K 357.2 POLYNEUROPATHY IN DIABETES 10/10/2012 IBAN DAVALOS DDS 357.2 POLYNEUROPATHY IN DIABETES 10/10/2012 GEE AMADO MD 357.2 POLYNEUROPATHY IN DIABETES 10/10/2012 JOELLE DAVALOS DDS 357.2 POLYNEUROPATHY IN DIABETES 10/10/2012 WADE DO JUSTICE K 357.2 POLYNEUROPATHY IN DIABETES 10/10/2012 JUSTICE WADE DO 357.2 POLYNEUROPATHY IN DIABETES 10/10/2012 VAN LAWRENCE APRN 357.2 POLYNEUROPATHY IN DIABETES 10/10/2012 IBAN DAVALOS DDS 357.2 POLYNEUROPATHY IN DIABETES 10/10/2012 GEE AMADO MD 357.2 POLYNEUROPATHY IN DIABETES 10/10/2012 GEE AMADO MD 357.2 POLYNEUROPATHY IN DIABETES 10/10/2012 LALITO TERRAZAS APRN 357.2 POLYNEUROPATHY IN DIABETES 10/10/2012 GEE AMADO MD 357.2 POLYNEUROPATHY IN DIABETES 10/10/2012 GEE AMADO MD 357.2 POLYNEUROPATHY IN DIABETES 10/10/2012 GEE AMADO MD 357.2 POLYNEUROPATHY IN DIABETES 10/10/2012 GEE AMADO MD 357.2 POLYNEUROPATHY IN DIABETES 10/26/2012 RK RAWLS MD Ot 401.9 HYPERTENSION NOS 10/26/2012 RK RAWLS MD Ot 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4 HYPERLIPIDEMIA NEC/NOS 08/28/2013 BOOM MILLER MD Ot 401.9 HYPERTENSION NOS 08/28/2013 BOOM MILLER MD Ot 414.01 CORONARY ATHEROSCLEROSIS OF [place] CORON 08/28/2013 BOOM MILLER MD Ot 786.50 CHEST PAIN NOS 08/28/2013 BOOM MILLER MD Ot V45.82 PERCUTANEOUS TRANSLUM CORON ANGIOPLASTY 10/23/2013 VAN LAWRENCE APRN V76.10 BREAST CANCER SCREENING 10/23/2013 IBAN DAVALOS DDS V76.10 BREAST CANCER SCREENING 10/23/2013 GEE AMADO MD V76.10 BREAST CANCER SCREENING 10/23/2013 GEE AMADO MD V76.10 BREAST CANCER SCREENING 10/23/2013 LALITO TERRAZAS APRN V76.10 BREAST CANCER SCREENING 10/23/2013 GEE AMADO MD V76.10 BREAST CANCER SCREENING 10/23/2013 GEE AMADO MD V76.10 BREAST CANCER SCREENING 10/23/2013 GEE AMADO MD V76.10 BREAST CANCER SCREENING 10/23/2013 GEE AMADO MD V76.10 BREAST CANCER SCREENING 02/06/2014 GEE AMADO MD 805.00 CLOSED FRACTURE OF CERVICAL VERTEBRA UNSPECIFIED LEVEL 02/06/2014 GEE AMADO MD 805.00 CLOSED FRACTURE OF CERVICAL VERTEBRA UNSPECIFIED LEVEL 02/06/2014 LALITO TERRAZAS APRN 805.00 CLOSED FRACTURE OF CERVICAL VERTEBRA UNSPECIFIED LEVEL 02/06/2014 GEE AMADO MD 805.00 CLOSED FRACTURE OF CERVICAL VERTEBRA UNSPECIFIED LEVEL 02/06/2014 GEE AMADO MD 805.00 CLOSED FRACTURE OF CERVICAL VERTEBRA UNSPECIFIED LEVEL 02/06/2014 GEE AMADO MD 805.00 CLOSED FRACTURE OF CERVICAL VERTEBRA UNSPECIFIED LEVEL 02/06/2014 GEE AMADO MD 805.00 CLOSED FRACTURE OF CERVICAL VERTEBRA UNSPECIFIED LEVEL 03/06/2014 LALITO TERRAZAS APRN 719.43 PAIN IN JOINT INVOLVING FOREARM 03/06/2014 LALITO TERRAZAS APRN 719.44 PAIN IN JOINT INVOLVING HAND 03/06/2014 GEE AMADO MD 719.43 PAIN IN JOINT INVOLVING FOREARM 03/06/2014 GEE AMADO MD 719.44 PAIN IN JOINT INVOLVING HAND 03/06/2014 GEE AMADO MD 719.43 PAIN IN JOINT INVOLVING FOREARM 03/06/2014 GEE AMADO MD 719.44 PAIN IN JOINT INVOLVING HAND 03/06/2014 GEE AMADO MD 719.43 PAIN IN JOINT INVOLVING FOREARM 03/06/2014 GEE AMADO MD 719.44 PAIN IN JOINT INVOLVING HAND 03/06/2014 GEE AMADO MD 719.43 PAIN IN JOINT INVOLVING FOREARM 03/06/2014 GEE AMADO MD 719.44 PAIN IN JOINT INVOLVING HAND 06/01/2014 GEE AMADO MD 338.29 OTHER CHRONIC PAIN 08/16/2014 VIVIANA COTTO Ot 250.00 08/16/2014 VIVIANA COTTO Ot 272.4 08/16/2014 VIVIANA COTTO Ot 401.9 08/16/2014 VIVIANA COTTO Ot 414.00 08/16/2014 VIVIANA COTTO Ot 786.50 08/16/2014 VAN LAWRENCE APRN Ot V76.12 02/27/2015 VIVIANA COTTO Ot 250.00 02/27/2015 VIVIANA COTTO Ot 272.4 02/27/2015 VIVIANA COTTO Ot 401.9 02/27/2015 VIVIANA COTTO Ot 414.00 02/27/2015 VIVIANA COTTO Ot 786.50 02/27/2015 VAN LAWRENCE APRN Ot V76.12 03/13/2015 BOOM MILLER MD Ot E11.9 TYPE 2 DIABETES MELLITUS WITHOUT COMPLIC 03/13/2015 BOOM MILLER MD Ot E66.9 OBESITY, UNSPECIFIED 03/13/2015 BOOM MILLER MD Ot E78.5 HYPERLIPIDEMIA, UNSPECIFIED 03/13/2015 BOOM MILLER MD Ot G89.29 OTHER CHRONIC PAIN 03/13/2015 BOOM MILLER MD Ot I10 ESSENTIAL (PRIMARY) HYPERTENSION 03/13/2015 BOOM MILLER MD Ot I11.9 HYPERTENSIVE HEART DISEASE WITHOUT HEART 03/13/2015 BOOM MILLER MD Ot I25.10 ATHSCL HEART DISEASE OF [place] CORONARY 03/13/2015 BOOM MILLER MD Ot R07.89 OTHER CHEST PAIN 03/13/2015 BOOM MILLER MD Ot Z68.35 BODY MASS INDEX (BMI) 35.0-35.9, ADULT 03/13/2015 BOOM MILLER MD Ot Z79.4 SENIOR CARE (CURRENT) USE OF INSULIN 03/13/2015 BOOM MILLER MD Ot Z79.899 OTHER SENIOR CARE (CURRENT) DRUG THERAPY 03/13/2015 BOOM MILLER MD Ot Z98.61 CORONARY ANGIOPLASTY STATUS 03/21/2015 BOOM MILLER MD Ot E78.5 03/21/2015 BOOM MILLER MD Ot I10 03/21/2015 BOOM MILLER MD Ot I25.10 03/21/2015 BOOM MILLER MD Ot R07.89 08/08/2015 Ot E78.5 HYPERLIPIDEMIA, UNSPECIFIED 08/08/2015 Ot I07.1 RHEUMATIC TRICUSPID INSUFFICIENCY 08/08/2015 Ot I10 ESSENTIAL ( PRIMARY) HYPERTENSION 08/08/2015 Ot I25.10 ATHSCL HEART DISEASE OF [place] CORONARY 08/09/2015 Ot E78.5 HYPERLIPIDEMIA, UNSPECIFIED 08/09/2015 Ot I07.1 RHEUMATIC TRICUSPID INSUFFICIENCY 08/09/2015 Ot I10 ESSENTIAL ( PRIMARY) HYPERTENSION 08/09/2015 Ot I25.10 ATHSCL HEART DISEASE OF [place] CORONARY 08/09/2015 Ot E78.5 HYPERLIPIDEMIA, UNSPECIFIED 08/09/2015 Ot I07.1 RHEUMATIC TRICUSPID INSUFFICIENCY 08/09/2015 Ot I10 ESSENTIAL ( PRIMARY) HYPERTENSION 08/09/2015 Ot I25.10 ATHSCL HEART DISEASE OF [place] CORONARY 08/12/2015 XANDER ESQUIVEL MD Ot M54.12 RADICULOPATHY, CERVICAL REGION 08/14/2015 XANDER ESQUIVEL MD Ot M54.12 RADICULOPATHY, CERVICAL REGION 08/14/2015 XANDER ESQUIVEL MD Ot Z98.1 ARTHRODESIS STATUS 08/14/2015 XANDER ESQUIVEL MD Ot M54.12 RADICULOPATHY, CERVICAL REGION 08/14/2015 XANDER ESQUIVEL MD Ot Z98.1 ARTHRODESIS STATUS 09/06/2015 Ot E78.5 HYPERLIPIDEMIA, UNSPECIFIED 09/06/2015 Ot I07.1 RHEUMATIC TRICUSPID INSUFFICIENCY 09/06/2015 Ot I10 ESSENTIAL ( PRIMARY) HYPERTENSION 09/06/2015 Ot I25.10 ATHSCL HEART DISEASE OF [place] CORONARY 09/11/2015 ILANA SANTAMARIA MD Ot M54.2 CERVICALGIA 09/11/2015 ILANA SANTAMARIA MD Ot M54.2 CERVICALGIA 09/11/2015 XANDER ESQUIVEL MD Ot M54.12 RADICULOPATHY, CERVICAL REGION 09/11/2015 XANDER ESQUIVEL MD Ot Z98.1 ARTHRODESIS STATUS 09/13/2015 ILANA SANTAMARIA MD Ot M48.02 SPINAL STENOSIS, CERVICAL REGION 09/13/2015 ILANA SANTAMARIA MD Ot M50.30 OTHER CERVICAL DISC DEGENERATION, UNSP C 10/08/2015 ILANA SANTAMARIA MD Ot M48.02 SPINAL STENOSIS, CERVICAL REGION 10/08/2015 ILANA SANTAMARIA MD Ot M50.30 OTHER CERVICAL DISC DEGENERATION, UNSP C 02/22/2017 JEFRY FLOREZ, VIVIANA Topete Ot 250.00 DIAB SHAHRAM WO COMPL, TYPE II OR UNSPEC TY 02/22/2017 VIVIANA COTTO Ot 272.4 HYPERLIPIDEMIA NEC/NOS 02/22/2017 VIVIANA COTTO Ot 401.9 HYPERTENSION NOS 02/22/2017 VIVIANA COTTO Ot 414.00 CORON ATHEROSCLER NOS TYPE VESSEL, NATIV 02/22/2017 VIVIANA COTTO Ot 786.50 CHEST PAIN NOS 02/22/2017 MELINDA, VANGRETTA Cleary APRN Ot V76.12 OTH SCREEN MAMMO-MALIGN NEOPLASM OF RUTH ANN 02/22/2017 BOOM MILLER MD Ot E78.5 HYPERLIPIDEMIA, UNSPECIFIED 02/22/2017 BOOM MILLER MD Ot I10 ESSENTIAL (PRIMARY) HYPERTENSION 02/22/2017 BOOM MILLER MD Ot I25.10 ATHSCL HEART DISEASE OF [place] CORONARY 02/22/2017 BOOM MILLER MD Ot R07.89 OTHER CHEST PAIN 02/22/2017 Ot E78.5 HYPERLIPIDEMIA, UNSPECIFIED 02/22/2017 Ot I07.1 RHEUMATIC TRICUSPID INSUFFICIENCY 02/22/2017 Ot I10 ESSENTIAL ( PRIMARY) HYPERTENSION 02/22/2017 Ot I25.10 ATHSCL HEART DISEASE OF [place] CORONARY 02/22/2017 XANDER ESQUIVEL MD Ot M54.12 RADICULOPATHY, CERVICAL REGION 02/22/2017 XANDER ESQUIVEL MD Ot Z98.1 ARTHRODESIS STATUS 02/22/2017 ILANA SANTAMARIA MD Ot M48.02 SPINAL STENOSIS, CERVICAL REGION 02/22/2017 ILANA SANTAMARIA MD Ot M50.30 OTHER CERVICAL DISC DEGENERATION, UNSP C Procedures Code Description Performed By Performed On 00.40 PROCEDURE ON SINGLE VESSEL 11/13/2011 00.45 INSERTION OF ONE VASCULAR STENT 11/13/2011 00.66 PERCUTANEOUS TRANSLUMINAL CORONARY ANGIO 11/13/2011 36.07 INSRT OF DRUG-ELUTING CORON ARTERY STENT 11/13/2011 37.22 LEFT HEART CARDIAC CATH 11/13/2011 88.53 LT HEART ANGIOCARDIOGRAM 11/13/2011 88.56 CORONAR ARTERIOGR-2 CATH 11/13/2011 99.20 INJECT/INFUSE PLATELET INHIBITOR 11/13/2011 92299 ROUTINE VENIPUNCTURE 01/14/2012 50229 A1C (IN-HOUSE) 01/14/2012 72539 CMP 01/15/2012 7479548 GFR CALC (RESULT ONLY) 01/15/2012 71256 ROUTINE VENIPUNCTURE 04/13/2012 99634 BMP 04/13/2012 8168560 GFR CALC (RESULT ONLY) 04/13/2012 11665 A1C (IN-HOUSE) 04/25/2012 93351 MICRO ALBUMIN-IN HOUSE 04/25/2012 59867 MICROALBUMIN 04/25/2012 89241 HEPATITIS PROFILE 05/24/2012 91352 ROUTINE VENIPUNCTURE 08/05/2012 12099 A1C (IN-HOUSE) 08/05/2012 75656 CMP 08/05/2012 11534 LIPID PANEL 08/05/2012 4555612 GFR CALC (RESULT ONLY) 08/05/2012 39885 A1C (IN-HOUSE) 11/10/2012 14953 A1C (IN-HOUSE) 02/24/2013 25000 ROUTINE VENIPUNCTURE 05/30/2013 55375 EKG, TRACING (IN-HOUSE) 05/30/2013 72850 LIPID PANEL 05/30/2013 83439 MAGNESIUM 05/30/2013 87404 CBC 05/30/2013 5097293 GFR CALC (RESULT ONLY) 05/30/2013 02784 CMP 05/30/2013 28654 TSH 05/30/2013 34876 NUCLEAR STRESS TESTING 07/28/2013 05992 ECHO 2D 07/28/2013 88513 MAMMOGRAM, SCREENING 10/23/2013 30012 XRAY CERVICAL SPINE, 2 OR 3 VIEWS 02/20/2014 44132 XRAY WRIST RIGHT COMP MIN 3 VIEWS 03/06/2014 52790 A1C (IN-HOUSE) 03/23/2014 56846 XRAY CERVICAL SPINE, 2 OR 3 VIEWS 04/02/2014 Results There is no data. Encounters ACCT No. Visit Date/Time Discharge Status Pt. Type Provider Facility Loc./Unit Complaint [id number] 06/01/2014 14:09:00 06/01/2014 23:59:59 CLS Outpatient GEE AMADO MD [id number] 04/30/2014 13:56:00 04/30/2014 23:59:59 CLS Outpatient GEE AMADO MD [id number] 03/29/2014 12:12:00 03/29/2014 23:59:59 CLS Outpatient GEE AMADO MD [id number] 03/23/2014 13:24:00 03/23/2014 23:59:59 CLS Outpatient GEE AMADO MD [id number] 03/06/2014 13:45:00 03/06/2014 23:59:59 CLS Outpatient LALITO TERRAZAS APRN [id number] 02/20/2014 14:47:00 02/20/2014 23:59:59 CLS Outpatient GEE AMADO MD [id number] 02/06/2014 16:34:00 02/06/2014 23:59:59 CLS Outpatient GEE AMADO MD [id number] 12/14/2013 00:00:00 12/14/2013 23:59:59 CLS Outpatient WHITE DDSIBAN [id number] 10/23/2013 09:58:00 10/23/2013 23:59:59 CLS Outpatient VAN LAWRENCE APRN [id number] 09/08/2013 09:39:00 09/08/2013 23:59:59 CLS Outpatient JUSTICE WADE DO [id number] 07/28/2013 08:44:00 07/28/2013 23:59:59 CLS Outpatient WADE JUSTICE DOLAN [id number] 06/06/2013 15:27:00 06/06/2013 23:59:59 CLS Outpatient WHITE DDSJOELLE [id number] 05/30/2013 09:38:00 05/30/2013 23:59:59 CLS Outpatient GEE AMADO MD [id number] 04/25/2013 08:38:00 04/25/2013 23:59:59 CLS Outpatient WHITE DDSIBAN [id number] 03/05/2013 00:00:00 03/05/2013 23:59:59 CLS Outpatient JUSTICE WADE DO [id number] 02/24/2013 07:56:00 02/24/2013 23:59:59 CLS Outpatient GEE AMADO MD [id number] 01/30/2013 08:00:00 01/30/2013 23:59:59 CLS Outpatient WHITE DDSIBAN [id number] 12/19/2012 00:00:00 12/19/2012 23:59:59 CLS Outpatient WHITE DDSIBAN [id number] 05/24/2012 09:24:00 05/24/2012 23:59:59 CLS Outpatient GEE AMADO MD [id number] 04/25/2012 09:57:00 04/25/2012 23:59:59 CLS Outpatient GEE AMADO MD [id number] 04/13/2012 09:38:00 04/13/2012 23:59:59 [place] [id number] 01/14/2012 14:34:00 01/14/2012 23:59:59 CLS Outpatient GEE AMADO MD [id number] 11/23/2012 10:51:00 Document Registration [id number] 08/05/2012 09:03:00 Document Registration [id number] 03/01/2017 07:44:00 03/01/2017 23:59:59 CLS Outpatient BOOM MILLER MD [facility] CARD AORTIC VALVE SCLEROSIS [id number] 02/22/2017 11:38:00 02/22/2017 23:59:59 CLS Outpatient BOOM MILLER MD [facility] CARD I35.8 AORTIC VALVE SCLEROSIS [id number] 09/11/2015 07:51:00 09/11/2015 23:59:59 CLS Outpatient ILANA SANTAMARIA MD [facility] RAD STENOSIS [id number] 08/09/2015 17:28:00 08/09/2015 23:59:59 CLS Outpatient XANDER ESQUIVEL MD [facility] RAD CERVICAL RADICULOPATHY [id number] 03/13/2015 07:10:00 03/13/2015 14:20:00 DIS Outpatient BOOM MILLER MD [facility] CATH HTN,HLP,CAD,CP [id number] 02/27/2015 11:59:00 02/27/2015 23:59:59 CLS Outpatient BOOM MILLER MD [facility] CARD HTN,HLD,CPS [id number] 10/31/2013 10:27:00 10/31/2013 23:59:59 CLS Outpatient VAN LAWRENCE APRN [facility] RAD SCREENING [id number] 08/28/2013 08:36:00 08/28/2013 17:20:00 DIS Outpatient BOOM MILLER MD [facility] CATH CAD,CP,HLP,HTN,DM [id number] 08/18/2013 12:27:00 08/18/2013 23:59:59 CLS Outpatient JEFRY FLOREZ, VIVIANA Topete [facility] CARD CAD,CP,HLP, HTN,DM [id number] 10/26/2012 12:11:00 10/26/2012 14:26:00 DIS Emergency CURLY MARAVILLA, RK Phillip [facility] ER ELEVATED BP [id number] 03/05/2017 08:13:00 ACT Outpatient PAUL MARAVILLA, BOOM French [facility] CATH ABN STRESS TEST, CAD, HTN [id number] 08/07/2015 09:49:00 Document Registration [id number] 11/13/2011 14:00:00 Document Registration
[2017-03-05] MEDS ORDERED: LIDOCAINE 1% INJ 50 ML (XYLOCAINE) VIAL ONE (08:54)
[2017-03-05] MEDS ORDERED: NS IV 1000 ML 1,000 ML ONE (08:54)
[2017-03-05] MEDS ORDERED: HEParin (CATH LAB) 2,000 ML IV ONE (08:54)
[2017-03-05] MEDS ORDERED: NS IV 1000 ML 1,000 ML IV SCH (09:00)
[2017-03-05 09:21] LABS: MEAN PLATELET VOLUME 10.8 FL (7.4-10.4); RED BLOOD COUNT 4.66 10^6/uL (4.35-5.85); RED CELL DISTRIBUTION WIDTH 13.7 % (10.0-14.5); WHITE BLOOD COUNT 7.4 10^3/uL (4.3-11.0)
[2017-03-05 09:23] LABS: BILIRUBIN,URINE NEGATIVE (NEGATIVE); KETONES,URINE NEGATIVE (NEGATIVE); LEUKOCYTE ESTERASE ,URINE 3+ (NEGATIVE); NITRITE,URINE NEGATIVE (NEGATIVE); PH,URINE 5 (5-9); PROTEIN,URINE 3+ (NEGATIVE); UROBILINOGEN,URINE NORMAL (NORMAL)
--- NOTE | 2017-03-05 09:29 | Diagnostic Imaging Report ---
INDICATION: Coronary artery disease in patient with hypertension and chest pain. Portable upright AP view of the chest is obtained with comparison made to study of 03/13/2015. Heart size at the upper limits of normal. There is continued elevation of the right hemidiaphragm. No pneumothorax or consolidation is identified and there is no evidence of overt edema. Surgical changes in the cervical spine are again noted. IMPRESSION: No acute abnormalities detected. Dictated by: Dictated on workstation # [id number]
[2017-03-05] MEDS ORDERED: INFLUENZA TRIvalent 2017-2018 0.5 ML/45 MCG SYR IM ONE (09:30)
[2017-03-05 09:37] LABS: PROTHROMBIN TIME PATIENT 13.3 SEC (12.2-14.7)
[2017-03-05 09:45] LABS: BILIRUBIN,TOTAL 0.3 MG/DL (0.1-1.0); CALCIUM 9.7 MG/DL (8.5-10.1); CREATININE SERUM 1.53 MG/DL (0.60-1.30); TOTAL PROTEIN 8.1 GM/DL (6.4-8.2)
[2017-03-05 09:51] LABS: SQUAMOUS EPITHELIAL CELL,UR 0-2 /HPF; WBC,URINE 25-50 /HPF
[2017-03-05 09:52] LABS: HYALINE CASTS, URINE 0-2 /LPF
[2017-03-05] MEDS ORDERED: MAGN400T39 PO (09:55)
[2017-03-05] MEDS ORDERED: GABA600T2 PO (09:55)
[2017-03-05] MEDS ORDERED: SALM1CAP4 PO (09:55)
[2017-03-05] MEDS ORDERED: ASPI-983 PO (09:55)
[2017-03-05] MEDS ORDERED: PRIM50TA PO (09:55)
[2017-03-05] MEDS ORDERED: METO100T12 PO (09:55)
[2017-03-05] MEDS ORDERED: FENO134C PO (09:55)
[2017-03-05] MEDS ORDERED: AMLO10TA2 PO (09:55)
[2017-03-05] MEDS ORDERED: CLOP75TA69 PO (09:55)
[2017-03-05] MEDS ORDERED: POTA99TA21 PO (09:55)
[2017-03-05] MEDS ORDERED: ATOR40TA70 PO (09:55)
[2017-03-05] MEDS ORDERED: FURO40TA4 PO (09:55)
[2017-03-05] MEDS ORDERED: LUTE20TA PO (09:55)
[2017-03-05] MEDS ORDERED: METF500T4 PO (09:55)
[2017-03-05] MEDS ORDERED: CALC-654 PO (09:55)
[2017-03-05] MEDS ORDERED: VITA1CAP PO (09:55)
[2017-03-05] MEDS ORDERED: PANT40TA3 PO (09:55)
[2017-03-05] MEDS ORDERED: INSU100V5 SQ (09:55)
[2017-03-05] MEDS ORDERED: ISM60TCR PO (09:55)
[2017-03-05] MEDS ORDERED: INSU100I14 SQ (09:55)
[2017-03-05] MEDS ORDERED: DOCU-143 PO (09:56)
[2017-03-05] MEDS ORDERED: HYDR-3820 PO (09:56)
[2017-03-05] MEDS ORDERED: fentaNYL INJECTION 100 MCG/2 ML AMP ONE (10:44)
[2017-03-05] MEDS ORDERED: MIDAZOLAM 2 MG/2 ML (VERSED) VIAL ONE (10:44)
[2017-03-05] MEDS ORDERED: ENOXAPARIN 100 MG/1 ML (LOVENOX) SYR ONE (11:15)
[2017-03-05] MEDS ORDERED: NITROGLYCERIN DRIP 25 MG/D5W 250 ML IV ONE (11:24)
[2017-03-05] MEDS ORDERED: ASPIRIN 325 MG (5 GR) TABLET ONE (11:37)
[2017-03-05] MEDS ORDERED: CLOPIDOGREL 300 MG (PLAVIX) TABLET PO ONE (11:37)
[2017-03-05] MEDS ORDERED: DOCUSATE SODIUM 100 MG (COLACE) CAP PO PRN (11:45)
[2017-03-05] MEDS ORDERED: HYDROcodone/APAP 10 MG/325 MG (LORTAB) TAB PO PRN (11:45)
[2017-03-05] MEDS ORDERED: PATIENT MAY USE OWN MEDS, ALL PO SCH (11:45)
--- NOTE | 2017-03-05 11:45 | Cardiac Cath Report ---
Cardiac Cath Report Physician (s)/Assistant Professor Nurse Education (s) Physician BOOM MILLER MD Pre-Procedure Diagnosis Pre-Procedure Diagnosis: Coronary artery disease Post-Procedure Note Procedure Start Date: Mar 05, 2017 Name of Procedure: Left heart catheterization, left ventricular pressure. 77475 Stent to the LAD 56735 Findings/Procedure Note PROCEDURE NOTE: After explaining the procedure to the patient, all pros and cons were explained, all questions were answered. The patient signed the consent and then she was placed on the cardiac catheterization laboratory. The patient was placed on the cardiac catheterization laboratory. Groin was prepped SL fashion local anesthesia was used. Sheath placed in the femoral artery. Raquel right and left catheter were used to access the coronary system. Pigtail was used to access the left ventricular cavity. Left ventriculogram was not done, pressure was measured Patient had ischemia in the anterior wall, noted to have severe stenosis beyond the stent in the LAD, known to have 3.0 stents in the LAD, I proceeded with primary stenting after giving 70 mg of IV Lovenox, FL guide was used, BMW wire was placed. Primary stenting with ALPINE stent 3.08 mm deployed under 18 dwight then I used noncompliant 3.515 mm balloon multiple inflation with excellent results. At the end of the procedure the sheath was removed. Closure device was used FINDINGS: Hemodynamics LV 107/26, end-diastolic pressure 26 Aorta 104/60 mean of 73 ANATOMY: Left Main is free of obstructive disease Left Anterior Descending has patent stent proximally beyond the stent there is an area of severe stenosis, patient had ischemia in the anterior wall on stress test, I proceeded with primary stenting using ALPINE 3.08 mm expanded to 3.5 mm , balloon for in-stent restenosis also was made, beyond the stent there is an area of mild disease distally. Nonobstructive disease Left Circumflex is moderate in size with mild disease nonobstructive disease Right Coronory Artery is moderate in size with multiple area of 50-60 percent stenosis which would be treated conservatively LV Gram was not done, pressure was measured CONCLUSION: 1. Severe LAD stenosis beyond the previously known stent 3.0. Successful primary stenting using 308 mm ALPINE expanded to 3.5 with excellent results, balloon for in-stent restenosis also was made. Mild disease in the distal LAD. 2. Multiple segment of moderate stenosis in the proximal and distal right coronary artery which will be treated conservatively and monitor closely. Consider repeating cardiac catheterization in 6 months to one year 3. Elevated left ventricular end-diastolic pressure. DISCUSSION AND RECOMMENDATION: I will continue maximizing therapy at this time. Continue on aspirin and Plavix Anesthesia Type: Conscious Sedation Estimated blood loss (mL): 20 ml Contrast Amount: 80 ml Total Radiation Dose: 912 mGy Post-Procedure Diagnosis Post-operative diagnosis: Coronary artery disease COPD Hypertension Hyperlipidemia BOOM MILLER MD Mar 05, 2017 11:45
[2017-03-05] MEDS ORDERED: ATOR10TA PO (11:48)
--- NOTE | 2017-03-05 11:49 | Discharge Inst-Post CATH ---
Discharge Inst-CATH Post Cardiac Cath D/C Inst Follow Up/Plan Hold metformin for [address] West's office in 2-4 weeks CARDIAC CATH DISCHARGE INSTRUCTIONS *Hold Metformin for 48 hours post heart cath. ACTIVITY * Go Home directly and rest. * Limit activity of the leg (or wrist if it was used) for 7 days including aerobics, swimming, jogging, bicycling, etc. * Restrict stair-climbing for 7 days if possible, if not, climb up with your non -cath leg, then bring together on the same step. * Avoid lifting, pushing, pulling or excessive movement of the affected extremity for 7 days. * Customary sexual activity may be resumed after 2 days-use caution not to use a position that strains or causes pain to the affected extremity. * No driving for 24 hours. * NO SMOKING. * Avoid straining for bowel movements for 7 days. * Gentle walking on level ground is allowed. * Returning to work will depend on the type of procedure and the results. Your doctor will discuss this with you. CALL YOUR DOCTOR FOR ANY OF THE FOLLOWING: *If bleeding from the puncture site occurs- Apply gentle pressure to site with clean cloth and call your doctor or EMS. * If a knot or lump forms under the skin, increases in size, or causes pain. * If bruising appears to be worsening or moving further down your leg instead of disappearing. * Temperature above 101 F. CARE OF YOUR GROIN INCISION; * Bruising or purple discoloration of the skin near the puncture site is common. * You may shower only, no bathtub bathing for 5 days. Be careful to avoid slipping as your leg may feel stiff. * If a closure device was used on your femoral artery, please see the attached guide regarding care of the device and your leg. * REMOVE the dressing from your groin the next day after your procedure in the shower. CARE OF YOUR WRIST INCISION; * Bruising or purple discoloration of the skin near the puncture site is common. * You may shower. * DO NOT submerge wrist. * Remove dressing in 24 hours. BOOM WEST MD Mar 05, 2017 11:49
[2017-03-05] MEDS ORDERED: CATHETER FLUSH 10 ML SYR IV PRN (12:15)
[2017-03-05] MEDS: NS IV 1000 ML 1,000 ML IV SCH ×2 (12:51→21:57)
[2017-03-05] MEDS: GABAPENTIN 600 MG (NEURONTIN) TAB PO SCH ×2 (13:23→21:05)
[2017-03-05] MEDS: lisINopril 20 MG (ZESTRIL) TAB PO SCH (19:04)
[2017-03-05] MEDS: cloNIDine 0.1 MG (CATAPRES) TAB PO SCH (19:05)
[2017-03-05] MEDS: Metoprolol Tartrate 100 MG PO SCH (19:05)
[2017-03-05] MEDS ORDERED: [UNRECOGNIZED DRUG - OTHER] PO SCH (21:00)
[2017-03-05] MEDS ORDERED: MAGNESIUM OXIDE (MAG-OX)400 MG TAB PO SCH (21:00)
[2017-03-05] MEDS ORDERED: ATORVASTATIN 40 MG (LIPITOR) TABLET PO SCH (21:00)
[2017-03-05] MEDS ORDERED: inSUlin DETERMIR 1000 UNITS/10 ML VIAL (LEVEMIR) SQ SCH (21:00)
[2017-03-05] MEDS ORDERED: OMEGA PO SCH (21:00)
[2017-03-05] MEDS ORDERED: FENOFIBRATE 134 MG (LOFIBRA) CAPSULE PO SCH (21:00)
[2017-03-05] MEDS ORDERED: CINNAMON BARK 500 MG PO SCH (21:00)
[2017-03-05] MEDS ORDERED: SALMON OIL PO SCH (21:00)
[2017-03-05] MEDS ORDERED: PRIMIDONE 50 MG TAB (MYSOLINE) PO SCH (21:00)
[2017-03-05] MEDS ORDERED: FATTY ACIDS PO SCH (21:00)
[2017-03-05] MEDS ORDERED: OMEGA 3 (FISH OIL) 1000 MG CAP PO SCH (21:00)
[2017-03-06] VITALS: BP 149/75
[2017-03-06 04:00] VITALS: BP 175/83
[2017-03-06 04:02] LABS: MEAN PLATELET VOLUME 11.2 FL (7.4-10.4); RED BLOOD COUNT 4.45 10^6/uL (4.35-5.85); RED CELL DISTRIBUTION WIDTH 13.7 % (10.0-14.5); WHITE BLOOD COUNT 6.5 10^3/uL (4.3-11.0)
[2017-03-06 04:23] LABS: CALCIUM 8.9 MG/DL (8.5-10.1); CREATININE SERUM 1.22 MG/DL (0.60-1.30); POTASSIUM 4.5 MMOL/L (3.6-5.0)
[2017-03-06] MEDS ORDERED: PANTOPRAZOLE 40 MG (PROTONIX) TAB PO SCH (07:00)
[2017-03-06 08:00] VITALS: BP 198/90
[2017-03-06] MEDS ORDERED: ASPIRIN E.C. 81 MG (ECOTRIN) TAB PO SCH (09:00)
[2017-03-06] MEDS ORDERED: NON-FORMULARY MEDICATION 1 EA EA (Potassium Gluconate (Potassium) 99 MG) PO SCH (09:00)
[2017-03-06] MEDS ORDERED: NON-FORMULARY MEDICATION 1 EA EA (Vitamin B Complex 1 CAP) PO SCH (09:00)
[2017-03-06] MEDS ORDERED: NON-FORMULARY MEDICATION 1 EA EA (Lutein 20 MG) PO SCH (09:00)
[2017-03-06] MEDS ORDERED: CLOPIDOGREL 75 MG (PLAVIX) TABLET PO SCH (09:00)
[2017-03-06] MEDS ORDERED: amLODIPine 10 MG (NORVASC) TAB PO SCH (09:00)
[2017-03-06] MEDS ORDERED: FUROSEMIDE 40 MG (LASIX) TAB PO SCH (09:00)
[2017-03-06] MEDS ORDERED: ISOSORBIDE MONONITRATE 60 MG (IMDUR) TAB PO SCH (09:00)
[2017-03-06] MEDS: GABAPENTIN 600 MG (NEURONTIN) TAB PO SCH (09:08)
[2017-03-06] MEDS: Metoprolol Tartrate 100 MG PO SCH (09:10)
[2017-03-06] MEDS: lisINopril 20 MG (ZESTRIL) TAB PO SCH (09:12)
[2017-03-06] MEDS: cloNIDine 0.1 MG (CATAPRES) TAB PO SCH (09:15)
[2017-03-06] MEDS: NS IV 1000 ML 1,000 ML IV SCH (09:20)
--- NOTE | 2017-03-06 11:09 | Cardiology Discharge Summary ---
Diagnosis/Chief Complaint Date of Admission 03/05/2017 Date of Discharge 03/06/2017 Admission Diagnosis CAD, abnormal nuclear stress test Final/Discharge Diagnosis severe LAD disease treated with drug-eluting stent. Chief Complaint/HPI Chief Complaint/HPI 61-year-old lady with history of CAD and hypertension. Abnormal nuclear stress test. Discharge Summary Procedures PCI to the LAD with drug-eluting stent. Discharge Physical Examination normal cardiac and respiratory examination. Normal right groin examination, no bruit auscultated. Hospital Course elevated blood pressure noted, responded to blood pressure medications. Pending Labs Laboratory Tests 03/06/17 03:36: White Blood Count 6.5, Red Blood Count 4.45, Hemoglobin 12.2, Hematocrit 38, Mean Corpuscular Volume 86, Mean Corpuscular Hemoglobin 27, Mean Corpuscular Hemoglobin Concent 32, Red Cell Distribution Width 13.7, Platelet Count 150, Mean Platelet Volume 11.2, Sodium Level 140, Potassium Level 4.5, Chloride Level 107, Carbon Dioxide Level 23, Anion Gap 10, Blood Urea Nitrogen 31, Creatinine 1.22, Estimat Glomerular Filtration Rate 45, BUN/Creatinine Ratio 25 , Glucose Level 145, Calcium Level 8.9 Discussion & Recommendations Discussion discharge took over 30 minutes to complete. Follow up appt.: Dr. West in 2-4 weeks. Dicharge Diet: Cardiac Diet Activity as Tolerated: Yes Home Medications Reviewed patient Home Medication Reconciliation Form Discharge Home Medications: Reviewed and agree with Discharge Medication list on patient's Discharge Instruction sheet Condition at discharge stable Instructions to patient/family Hold metformin for [address] West's office in 2-4 weeks Jaime GARSIA MD Mar 06, 2017 11:09 am
[2017-03-06 12:00] VITALS: BP 160/76
[2017-03-06 13:30] VITALS: BP 160/76
[2017-03-06] MEDS ORDERED: CALCIUM CARB + VIT D 600 MG (CALCARB + D) TAB PO SCH (17:00)
== END 2017-03-06 13:30 | disposition home or self-care (01) ==
LOC: CATH 08:13 → ICU 11:39 → CATH 03-06 13:30
PROVIDERS: ATTEND Internal Medicine Cardiovascular Disease
DX: I25.10 Atherosclerotic heart disease of native coronary artery without angina pectoris (principal); I10 Essential (primary) hypertension; Z79.84 Long term (current) use of oral hypoglycemic drugs
CPT/HCPCS: 36415; 71010; 80048; 80053; 80061; 81000; 82962; 85027; 85610; 85730; 87081; 87088; 92928; 93005; 93458

== ENCOUNTER 2017-04-03 19:54 | Outpatient (CLI) | payer MEDICARE, OTHER ==
[~2017-04-03 19:54] MED LIST changes: +AMLO10TA2 PO; +ASPI-983 PO; +ATOR10TA PO; +ATOR40TA70 PO; +CALC-654 PO; +CLOP75TA69 PO; +DOCU-143 PO; +ENOX100D9 SQ; +GABA600T2 PO; +HYDR-3820 PO; +INSU100V5 SQ; +LUTE20TA PO; +MAGN400T39 PO; +METO100T12 PO; +PANT40TA3 PO; +POTA99TA21 PO; +PRIM50TA PO; +SALM1CAP4 PO; +VITA1CAP PO; +WARF5TAB PO
== END 2017-04-04 07:02 | disposition home or self-care (01) ==
LOC: SLEEP 19:54
PROVIDERS: ATTEND Internal Medicine Cardiovascular Disease
DX: G47.33 Obstructive sleep apnea (adult) (pediatric) (principal); R06.83 Snoring
CPT/HCPCS: 95811

== ENCOUNTER 2017-06-15 10:55 | Outpatient (RCR) | payer MEDICARE, OTHER ==
[2017-03-29 17:10] LABS: INR 1.1 (0.8-1.4); PROTHROMBIN TIME PATIENT 14.2 SEC (12.2-14.7)
[2017-03-30 15:43] LABS: PROTHROMBIN TIME PATIENT 13.5 SEC (12.2-14.7)
[2017-04-02 10:31] LABS: INR 1.3 (0.8-1.4); PROTHROMBIN TIME PATIENT 16.1 SEC (12.2-14.7)
[2017-04-08 19:12] LABS: INR 1.5 (0.8-1.4)
[2017-04-12 16:07] LABS: INR 2.6 (0.8-1.4)
[2017-04-15 13:45] LABS: PROTHROMBIN TIME PATIENT 30.7 SEC (12.2-14.7)
[2017-04-19 14:15] LABS: INR 3.4 (0.8-1.4); PROTHROMBIN TIME PATIENT 33.8 SEC (12.2-14.7)
[2017-05-17 17:01] LABS: INR 1.1 (0.8-1.4); PROTHROMBIN TIME PATIENT 14.1 SEC (12.2-14.7)
[2017-06-15 11:19] LABS: INR 2.5 (0.8-1.4)
[2017-06-15 11:29] LABS: ALBUMIN 3.9 GM/DL (3.2-4.5); BILIRUBIN,TOTAL 0.3 MG/DL (0.1-1.0); CALCIUM 9.4 MG/DL (8.5-10.1); CREATININE SERUM 1.45 MG/DL (0.60-1.30); POTASSIUM 4.4 MMOL/L (3.6-5.0); TOTAL PROTEIN 7.7 GM/DL (6.4-8.2)
== END 2017-06-27 | disposition home or self-care (01) ==
LOC: LAB 10:55
PROVIDERS: ATTEND Internal Medicine Cardiovascular Disease
DX: I48.91 Unspecified atrial fibrillation (principal)
CPT/HCPCS: 36415; 80053; 80061; 85610

== ENCOUNTER → 2018-02-05 | Outpatient (CLI) | payer MEDICARE, OTHER ==
[~2018-02-05] MED LIST changes: -AMLO10TA2 PO; +AMLO10TA6 PO; +METF-397 PO; -METF500T4 PO
[2018-02-05 17:00] LABS: INR 2.2 (0.8-1.4); PROTHROMBIN TIME PATIENT 24.6 SEC (12.2-14.7)
== END ==
LOC: LAB 16:36
PROVIDERS: ATTEND Internal Medicine Cardiovascular Disease
DX: Z51.81 Encounter for therapeutic drug level monitoring (principal); I48.0 Paroxysmal atrial fibrillation; Z79.01 Long term (current) use of anticoagulants
CPT/HCPCS: 36415; 85610

== ENCOUNTER 2018-03-09 08:29 | Day surgery (SDC) | payer MEDICARE, OTHER ==
[~2018-03-09] VITALS: Ht 162.6 cm; Wt 96.2 kg
[2018-03-09] VITALS (7 sets, daily range): BP systolic 143–169; BP diastolic 72–76
[2018-03-09] MEDS ORDERED: NS IV 1000 ML 1,000 ML IV SCH ×2 (08:45→10:13)
[2018-03-09 09:04] LABS: BILIRUBIN,URINE NEGATIVE (NEGATIVE); CLARITY,URINE SLIGHTLY CLOUDY; COLOR,URINE YELLOW; GLUCOSE, URINE (UA) NEGATIVE (NEGATIVE); KETONES,URINE NEGATIVE (NEGATIVE); LEUKOCYTE ESTERASE ,URINE 3+ (NEGATIVE); NITRITE,URINE NEGATIVE (NEGATIVE); PH,URINE 5 (5-9); PROTEIN,URINE 3+ (NEGATIVE); UROBILINOGEN,URINE NORMAL (NORMAL)
[2018-03-09 09:09] LABS: HEMOGLOBIN 12.6 G/DL (11.5-16.0); MEAN PLATELET VOLUME 10.4 FL (7.4-10.4); RED BLOOD COUNT 4.87 10^6/uL (4.35-5.85); WHITE BLOOD COUNT 6.4 10^3/uL (4.3-11.0)
--- NOTE | 2018-03-09 09:15 | Diagnostic Imaging Report ---
INDICATION: Pre-heart catheterization. TIME OF EXAM: 09:02 a.m. Correlation is made with prior study from 03/24/2017. The heart is enlarged and stable. Lungs are clear. No infiltrate or failure is seen. The pulmonary vascularity is normal. No effusion or pneumothorax is detected. There are postop changes in the cervical spine. IMPRESSION: Stable cardiomegaly. No acute feature is detected. Dictated by: Dictated on workstation # [id number]
--- OUTSIDE RECORDS SUMMARY | 2018-03-09 09:16 | XMS REPORT ---
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 Active 1010505320963 Problem Type 2 diabetes mellitus without complications E11.9 Active 551725341 Problem Paresthesias in right hand R20.2 Active 305624213 Problem Hyperlipidemia, unspecified hyperlipidemia type E78.5 Active 41015564 Problem Chronic kidney disease, unspecified CKD stage N18.9 Active 866048693 Problem Type 2 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, unspecified E11.40 Active 20507735 Problem Essential hypertension I10 Active 57444233 Problem Neck pain M54.2 Active 74816481 Problem [facility] 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 Active 363244248 Problem GERD (gastroesophageal reflux disease) K21.9 Active 761671461 ALLERGIES Substance Reaction Event Type Date Status Morphine Sulfate Unknown Drug Allergy Dec, Active ENCOUNTERS Encounter Location Date Diagnosis [place] [id number] [place] [address] 51119- 0778 Jan, Type 2 diabetes mellitus without complications E11.9 [facility] [id number] [address] 2075 Dec, [facility] [id number] [place] [address] 17427- 3818 Dec, Type 2 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, unspecified E11.40 ; [facility] 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 and Chronic kidney disease, unspecified CKD stage N18.9 [facility] [address] [place] [address] 17856- 0655 Dec, Type 2 diabetes mellitus without complications E11.9 [facility] [address] [address] 6071 10 Dec, 2017 [facility] [address] [address] 1928 09 Dec, 2017 Type 2 diabetes mellitus without complications E11.9 [facility] [address] [address] 6912 08 Dec, 2017 [facility] [id number] [address] 0072 Oct, [facility] [address] [address]- 0721 Sep, [facility] [address] [place] [address] 27236- 0022 Aug, [facility] [address] [place] [address] 42187- 9582 Aug, Exposure to hepatitis C Z20.5 and Routine adult health maintenance Z00.00 [facility] [address] [address] 4823 Aug, Exposure to hepatitis C Z20.5 [facility] [address] [address]- 1464 Aug, Medicare annual wellness visit, initial Z00.00 ; 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 ; Hyperlipidemia, unspecified hyperlipidemia type E78.5 ; Essential hypertension I10 ; GERD (gastroesophageal reflux disease) K21.9 ; Routine adult health maintenance Z00.00 ; Encounter for immunization Z23 ; Type 2 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, unspecified E11.40 and 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 [facility] [address] [address] 1244 July, Type 2 diabetes mellitus without complications E11.9 and Type 2 diabetes mellitus without complications E11.9 [facility] [address] [address] 7114 July, [facility] [address] [address]- 9625 July, [facility] [address] 7976 Mar, Type 2 diabetes mellitus without complications E11.9 [facility] [address] [address]- 1617 Mar, [facility] [address] [address]- 0462 Feb, Type 2 diabetes mellitus without complications E11.9 [facility] [address] [place] [address], [place] [address]- 2716 Jan, Type 2 diabetes mellitus without complications E11.9 [facility] [address] [address]- 3893 Jan, Type 2 diabetes mellitus without complications E11.9 [facility] [address] [address]- 2560 Nov, [facility] [address] [place] [address] 95131- 2712 Oct, Type 2 diabetes mellitus without complications E11.9 [facility] [address] [address]- 9497 Oct, Type 2 diabetes mellitus without complications E11.9 ; Essential hypertension I10 and Neck pain M54.2 [facility] [address] [address]- 7375 Sep, [facility] [address] [address]- 1277 Aug, Type 2 diabetes mellitus without complications E11.9 [facility] [address] [address]- 1450 Jun, Type 2 diabetes mellitus without complications E11.9 ; Neck pain M54.2 and Essential hypertension I10 [facility] [id number] [place] [address] 08890- 8909 17 Jun, 2016 [facility] [id number] [place] [address] 71573- 4331 14 Jun, 2016 [facility] [id number] [place] [address] 46217- 7596 10 Jun, 2016 GERD (gastroesophageal reflux disease) K21.9 and Type 2 diabetes mellitus without complications E11.9 [facility] [id number] [place] [address] 31551- 2795 10 Mar, 2016 Paresthesias in right hand R20.2 [facility] [address] [address]379- 0849 Feb, Type 2 diabetes mellitus without complications E11.9 [facility] [address] [id number] Feb, Encounter for dental examination Z01.20 [facility] [id number] [place] [address] 81470- 7994 Feb, Type 2 diabetes mellitus without complications E11.9 and Neck pain M54.2 [facility] [id number] [place] [address] 01044- 3738 02 Feb, 2016 Type 2 diabetes mellitus without complications E11.9 [facility] [id number] [place] [address] [phone] Jan, Dental examination Z01.20 [facility] [id number] [place] [address] 61126- 4068 Jan, [facility] [id number] [place] [address] 45153- 7425 Jan, [facility] [id number] [place] [address] [id number] Dec, Dental caries K02.9 [facility] [id number] [place] [address] 593456- 5719 30 Nov, 2015 [facility] [id number] [place] [address] 92803- 5144 Nov, [facility] [id number] [place] [address] 89389- 4012 Oct, Type 2 diabetes mellitus without complications E11.9 ; Neck pain M54.2 and Essential hypertension I10 [facility] [address] [place] [address] 78344- 3294 Oct, [facility] [id number] [place] [address] [phone] Oct, Dental examination Z01.20 [facility] [id number] [place] [address] 91485- 2967 Sep, [facility] [id number] [place] [address] 04567- 4877 Sep, [facility] [id number] [place] [address] 84449- 9287 Aug, Essential (primary) hypertension I10 [facility] [id number] [place] [address] 06551- 8647 Aug, [facility] [id number] [place] [address] 16392- 6054 Aug, [facility] [id number] [place] [address] 14499- 5729 July, Essential (primary) hypertension I10 [facility] [id number] [place] [address] 61574- 0919 July, Essential (primary) hypertension I10 and Type 2 diabetes mellitus without complications E11.9 [facility] [address] [address]- 4763 July, [facility] [id number] [place] [address] 85690- 8914 14 Jun, 2015 GERD (gastroesophageal reflux disease) K21.9 [facility] [address] [address]- 1078 Jun, GERD (gastroesophageal reflux disease) K21.9 [facility] [address] [place] [address] 23010- 1876 Jun, [facility] [id number] [place] [address] 07471- 7815 Jun, Neuropathy G62.9 [facility] [id number] [place] [address] 42816- 1827 May, Essential (primary) hypertension I10 [facility] [id number] [place] [address] 13998 -9356 May, Bronchitis J40 [facility] [address] 60132- 4536 May, Type 2 diabetes mellitus without complications E11.9 and Essential (primary) hypertension I10 [facility] [id number] [place] [address] 74786- 3371 May, [facility] [id number] [place] [address] 75099- 7028 May, GERD (gastroesophageal reflux disease) K21.9 [facility] [id number] [place] [address] 35762- 8693 Apr, Other and unspecified hyperlipidemia 272.4 ; Unspecified essential hypertension 401.9 ; Type 2 diabetes mellitus without complications E11.9 ; Neck pain M54.2 and Paresthesias in right hand R20.2 [facility] [id number] [place] [address] 04684- 1434 Apr, [facility] [id number] [place] [address] 03482- 0523 Apr, Neuropathy G62.9 [facility] [id number] [place] [address] 40236- 4672 Mar, [facility] [id number] [place] [address] 92583- 8295 Feb, [facility] [address] [place] [address]- 8430 Jan, [facility] [address] [address]- 1718 Dec, [facility] [id number] [place] [address] 21908- 9046 Dec, Type 2 diabetes mellitus without complications E11.9 ; Encounter for immunization Z23 and Neck pain M54.2 [facility] [id number] [place] [address] 25064- 0265 Dec, [facility] [id number] [place] [address] 97938- 2548 Nov, [facility] [id number] [place] [address] 72150- 0011 Nov, [facility] [id number] [place] [address] 32190- 7037 Oct, [facility] [id number] [place] [address] 48566- 1218 Oct, [facility] [address] [place] [address] 71406- 2070 Sep, [facility] [id number] [place] [address] 36014- 6612 Sep, Coronary atherosclerosis of unspecified type of vessel, teller or graft 414.00 ; Diabetes mellitus without mention of complication, type II or unspecified type, not stated as uncontrolled 250.00 ; Hyperlipidemia 272.4 and HTN (hypertension) 401.9 [facility] [address] [address]- 9600 Aug, [facility] [id number] [place] [address] 91453- 0410 July, [facility] [address] [address]- 4302 Jun, [facility] [id number] [place] [address] 52294- 9104 Jun, [facility] [place] [facility] [address] [id number] [place] [address]- 1336 May, [facility] [place] [facility] [address] [id number] [place] [address]- 8579 May, [facility] [place] [facility] [address] [facility] [id number] [place] [address]- 1749 May, [facility] [place] [facility] [address] [id number] [place] [address]- 5197 May, [facility] [place] [facility] [address] [id number] [place] [address]- 1666 Apr, [facility] [place] [facility] [address] [id number] [place] [address]- 0266 Apr, [facility] [place] [facility] [address] [id number] [place] [address]- 6984 Apr, [facility] [place] [facility] [address] [id number] [place] [address]- 8586 Apr, [facility] [place] [facility] [address] [id number] [place] [address]- 8651 Apr, [facility] [place] [facility] [address] [facility] [id number] [place] [address]- 3263 Apr, [facility] [place] [facility] [address] [facility] [id number] [place] [address]- 4385 Apr, [facility] [place] [facility] [address] [id number] [place] [address]- 0943 Apr, [facility] [place] [facility] [address] [id number] [place] [address]- 6048 Mar, [facility] [place] [facility] [address] [id number] [place] [address]- 7083 Mar, [facility] [place] [facility] [address] [facility] [id number] [place] [address]- 6806 Mar, [facility] [place] [facility] [address] [id number] [place] [address]- 1874 Mar, [facility] [place] [facility] [address] [id number] [place] [address]- 7618 Mar, [facility] [place] [facility] [address] [id number] [place] [address]- 8796 Mar, [facility] [place] [facility] [address] [id number] [place] [address]- 2267 Mar, [facility] [place] [facility] [address] [id number] [place] [address]- 9382 Mar, [facility] [place] [facility] [address] [id number] [place] 9736 Feb, [facility] [place] [facility] [address] [id number] [place] 3710 Feb, [facility] [place] [facility] [address] [id number] [place] [address]- 2474 Feb, [facility] [place] [facility] [address] [id number] [place] [address]- 0769 Feb, [facility] [place] [facility] [address] [id number] [place] [address]- 2408 Feb, [facility] [place] [facility] [address] [id number] [place] [address]- 5175 Feb, [facility] [place] [facility] [address] [id number] [place] [address]- 2484 Feb, [facility] [place] [facility] [address] [id number] [place] [address]- 1070 Feb, [facility] [place] [facility] [address] [id number] [place] [address]- 3975 Feb, [facility] [place] [facility] [address] [id number] [place] [address]- 9496 Feb, [facility] [place] [facility] [address] [id number] [place] [address]- 6899 Jan, [facility] [place] [facility] [address] [id number] [place] [address]- 4899 Jan, [facility] [place] [facility] [address] [id number] [place] [address]- 2942 Dec, [facility] [place] [facility] [address] [id number] [place] [address]- 2106 Dec, [facility] [place] [facility] [address] [id number] [place] [address]- 5694 Dec, [facility] [place] [facility] [address] [id number] [place] [address]- 0764 Dec, [facility] [place] [facility] [address] [id number] [place] [address]- 1160 Nov, [facility] [place] [facility] [address] [id number] [place] [address]- 2736 Nov, [facility] [place] [facility] [address] [id number] [place] [address]- 6404 Nov, [facility] [place] [facility] [address] [id number] [place] [address]- 5110 Nov, [facility] [place] [facility] [address] [id number] [place] [address]- 6925 Oct, [facility] [place] [facility] [address] [id number] [place] [address]- 5941 Oct, [facility] [place] [facility] [address] [id number] [place] [address]- 9929 Oct, [facility] [place] [facility] [address] [id number] [place] [address]- 4426 Oct, [facility] [place] [facility] [address] [id number] [place] [address]- 0640 Oct, [facility] [place] [facility] [address] [id number] [place] [address]- 7932 Sep, [facility] [place] [facility] [address] [id number] [place] [address]- 6470 Sep, [facility] [place] [facility] [address] [id number] [place] [address]- 6972 Sep, [facility] [place] [facility] [address] [id number] [place] [address]- 1150 Sep, [facility] [place] [facility] [address] [id number] [place] [address]- 2195 Sep, [facility] [place] [facility] [address] [id number] [place] [address]- 0875 Sep, [facility] [place] [facility] [address] [id number] [place] [address]- 7523 Aug, [facility] [place] [facility] [address] [id number] [place] [address]- 8597 Aug, [facility] [place] [facility] [address] [id number] [place] [address]- 4970 Aug, [facility] [place] [facility] [address] [id number] [place] [address]- 0769 Aug, [facility] [place] [facility] [address] [id number] [place] [address]- 9494 Aug, [facility] [place] [facility] [address] [id number] [place] [address]- 3951 Aug, [facility] [place] [facility] [address] [id number] [place] [address]- 6166 July, [facility] [place] [facility] [address] [id number] [place] [address]- 9891 July, [facility] [place] [facility] [address] [id number] [place] [address]- 3663 Jun, [facility] [place] [facility] [address] [id number] [place] [address]- 9038 Jun, [facility] [place] [facility] [address] [id number] [place] [address]- 5527 May, [facility] [place] [facility] [address] [id number] [place] [address]- 7575 May, [facility] [place] [facility] [address] [id number] [place] [address]- 1422 May, [facility] [place] [facility] [address] [id number] [place] [address]- 6129 May, [facility] [place] [facility] [address] [id number] [place] [address]- 0398 Apr, [facility] [place] [facility] [address] [id number] [place] [address]- 8038 Apr, [facility] [place] [facility] [address] [id number] [place] [address]- 5987 Apr, [facility] [place] [facility] [address] [id number] [place] [address]- 5119 Apr, [facility] [place] [facility] [address] [id number] [place] [address]- 8033 Apr, [facility] [place] [facility] [address] [id number] [place] [address]- 0293 Apr, [facility] [place] [facility] [address] [id number] [place] [address]- 3107 Feb, [facility] [place] [facility] [address] [id number] [place] [address]- 7522 Feb, [facility] [place] [facility] [address] [id number] [place] [address]- 4108 Feb, [facility] [place] [facility] [address] [id number] [place] [address]- 7352 Feb, [facility] [place] [facility] [address] [id number] [place] [address]- 8604 Jan, [facility] [place] [facility] [address] [id number] [place] [address]- 5638 Jan, [facility] [place] [facility] [address] [id number] [place] [address]- 6726 14 Dec, 2012 [facility] [place] [facility] [address] [id number] [place] [address]- 1916 14 Dec, 2012 [facility] [place] [facility] [address] [id number] [place] [address]- 7239 14 Dec, 2012 [facility] [place] [facility] [address] [id number] [place] [address] 2547 Dec, [facility] [place] [facility] [address] [id number] [place] [address] 2548 Oct, [facility] [place] [facility] [address] [id number] [place] [address] Oct, [facility] [place] [facility] [address] [id number] [place] [id number] Oct, [facility] [place] [facility] [address] [id number] [place] [address]- 0266 Oct, [facility] [place] [facility] [address] [id number] [place] [address]- 6099 Sep, [facility] [place] [facility] [address] [id number] [place] [address] Sep, [facility] [place] [facility] [address] [id number] [place] [address] Aug, [facility] [place] [facility] [address] [id number] [place] [address] Aug, [facility] [place] [facility] [address] [id number] [place] [address] Aug, [facility] [place] [facility] [address] [id number] [place] [address] Aug, [facility] [place] [facility] [address] [id number] [place] [address] July, [facility] [place] [facility] [address] [id number] [place] [address] Jun, [facility] [place] [facility] [address] [id number] [place] [address] 13 May, 2012 [facility] [address] [id number] [place] [address] 05 May, 2012 [facility] [place] [facility] [address] [id number] [place] [address] May, [facility] [address] [id number] [place] [address] 05 May, 2012 [facility] [place] [facility] [address] [id number] [place] [address] May, [facility] [place] [facility] [address] [id number] [place] [address] Apr, [facility] [place] [facility] [address] [id number] [place] [address] Apr, [facility] [place] [facility] [address] [id number] [place] [address] Apr, [facility] [address] [id number] [place] [address] Apr, [facility] [address] [id number] [place] [address] Mar, [facility] [place] [facility] [address] [id number] [place] [address] Mar, [facility] [place] [place] [facility] [address] [id number] [place] [address] Mar, [facility] [place] [place] [facility] [address] [id number] [place] [address] Mar, [facility] [place] [facility] [address] [id number] [place] [address] Jan, [facility] [place] [facility] [address] [id number] [place] [address] Jan, [facility] [place] [facility] [address] [id number] [place] [address] Jan, [facility] [place] [facility] [address] [id number] [place] [address] 15 Jan, 2012 [facility] [place] [facility] [address] [id number] [place] [address] Jan, [facility] [place] [facility] [address] [facility] [id number] [place] [address] Jan, [facility] [place] [facility] [address] [id number] [place] [address] Jan, [facility] [place] [facility] [address] [id number] [place] [address] Jan, [facility] [place] [facility] [address] [id number] [place] [address] Jan, [facility] [place] [facility] [address] [id number] [place] [address] Jan, [facility] [place] [facility] [address] [id number] [place] [address] Dec, [facility] [place] [facility] [address] [id number] [place] [address] Dec, [facility] [place] [facility] [address] [facility] [id number] [place] [address] Dec, [facility] [place] [facility] [address] [id number] [place] [address] 27 Nov, 2011 [facility] [place] [facility] [address] [id number] [place] [address] 26 Nov, 2011 [facility] [place] [facility] [address] [id number] [place] [address] Nov, [facility] [place] [facility] [address] [id number] [place] [address] Nov, [facility] [address] [id number] [place] [address] Oct, [facility] [address] [id number] [place] [address] Oct, IMMUNIZATIONS No Known Immunizations SOCIAL HISTORY Never Assessed REASON FOR VISIT Diabetes check up [facility], A1C done in visit [facility] PLAN OF CARE Activity Details Follow Up 3 Months Reason: VITAL SIGNS Height 64 in 2018-01-17 Weight 212.7 lbs 2018-01-17 Temperature 98.2 degrees Fahrenheit 2018-01-17 Heart Rate 65 bpm 2018-01-17 Respiratory Rate 20 2018-01-17 BMI 36.51 kg/m2 2018-01-17 Blood pressure systolic 126 mmHg 2018-01-17 Blood pressure diastolic 68 mmHg 2018-01-17 MEDICATIONS Medication Instructions Dosage Frequency Start Date End Date Duration Status Easy Comfort Pen Magnolia 31G X 8 MM as directed 6h Nov, Active Metoprolol Tartrate 100 MG Orally Once a day 1 tablet with food 24h Mar Active Pantoprazole Sodium 40MG TAKE ONE TABLET BY MOUTH ONCE DAILY Active OneTouch Ultra Test - USE ONE STRIP TO CHECK GLUCOSE THREE TIMES DAILY Active Fenofibrate Micronized 134MG TAKE ONE CAPSULE BY MOUTH ONCE DAILY WITH FOOD Active Clopidogrel Bisulfate 75MG TAKE ONE TABLET BY MOUTH ONCE DAILY Active Aspirin 81 mg take 1 tablet (81 mg) by oral route once daily Oct, Active Amlodipine Besylate 10MG TAKE ONE TABLET BY MOUTH ONCE DAILY Active Levemir FlexTouch 100 UNIT/ML INJECT 82 UNITS SUBCUTANEOUSLY ONCE DAILY 3 Active Neurontin 600MG Orally Three times a day 1 tablet 8h Active Lisinopril 20MG Orally twice a day 1 tablet 12h Active C-PAP Machine Active Lipitor 40 MG TAKE ONE TABLET BY MOUTH ONCE PER DAY 90 Active Levemir Flexpen 100 unit/mL (3 mL) subcutaneously 2 times a day 82 Unit 12h 10 Apr, 2013 Active MetFORMIN HCl ER 500MG TAKE ONE TABLET BY MOUTH TWICE DAILY Active Insulin Detemir 100 UNIT/ML Subcutaneous Once a day 82 units 24h Jan, Active Furosemide 40 MG Orally Once a day take 1 tablet (40 mg) by oral route once daily 24h 90 Active Clonidine HCl 0.1 MG Orally twice a day 1 tablet 12h Active Humalog KwikPen 100 UNIT/ML Subcutaneous 3 times a day inject 45 units, as per insulin sliding scale protocol 8h Aug, 30 days Active Hydrocodone-Acetaminophen 10-325 MG Orally every 8 hrs 1 tablet as needed 8h Dec, 28 days Active RESULTS No Results PROCEDURES Procedure Date Ordered Result Body Site GLYCATED HEMOGLOBIN TEST Jan 17, 2018 [facility] Jan 17, 2018 [facility] VISIT ESTABLISHED PATIENT Jan 17, 2018 INSTRUCTIONS MEDICATIONS ADMINISTERED No Known Medications MEDICAL (GENERAL) HISTORY Type Description Date Medical History Diabetes type 2 Medical History hypertension Medical History hyperlipidemia Medical History neck fracture Jan 2014 Surgical History cholecystectomy Surgical History hysterectomy Surgical History neck surgeryafter fracturing it in 2013 Surgical History carpal tunnel surgery; right Surgical History back surgery; discectomy Surgical History Stents 2013 Hospitalization History surgeries
--- OUTSIDE RECORDS SUMMARY | 2018-03-09 09:16 | XMS REPORT ---
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 Active 1074300424040 Problem Type 2 diabetes mellitus without complications E11.9 Active 977136301 Problem Paresthesias in right hand R20.2 Active 119149952 Problem Hyperlipidemia, unspecified hyperlipidemia type E78.5 Active 30711138 Problem Chronic kidney disease, unspecified CKD stage N18.9 Active 425430761 Problem Type 2 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, unspecified E11.40 Active 16353813 Problem Essential hypertension I10 Active 13455507 Problem Neck pain M54.2 Active 81944288 Problem [facility] 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 Active 092200808 Problem GERD (gastroesophageal reflux disease) K21.9 Active [id number] ALLERGIES No Information ENCOUNTERS Encounter Location Date Diagnosis [place] [id number] [place] [address] 19437- 5758 Feb, [place] [id number] [place] [address] 69287- 0405 Jan, Type 2 diabetes mellitus without complications E11.9 [facility] [id number] [place] [address] 60580- 2077 Dec, [place] [id number] [place] [address] 96045- 8046 Dec, Type 2 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, unspecified E11.40 ; terminologist 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 and Chronic kidney disease, unspecified CKD stage N18.9 [place] [address] [place] [address] 7559 15 Dec, 2017 Type 2 diabetes mellitus without complications E11.9 [facility] [address], [place] [address] 3658 10 Dec, 2017 [facility] [address], [place] [address] 9893 09 Dec, 2017 Type 2 diabetes mellitus without complications E11.9 [facility] [id number] [address] 2424 08 Dec, 2017 [facility] [address], [place] [address] 0076 Oct, [facility] [id number] [place] [address] 89493- 1871 Sep, [facility] [address], [place] [address] 1864 Aug, [facility] [id number] [address] 8981 Aug, Exposure to hepatitis C Z20.5 and Routine adult health maintenance Z00.00 [facility] [address], [place] [address] 4220 Aug, Exposure to hepatitis C Z20.5 [facility] [address], [place] [address] 5919 Aug, Medicare annual wellness visit, initial Z00.00 ; 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 ; Hyperlipidemia, unspecified hyperlipidemia type E78.5 ; Essential hypertension I10 ; GERD (gastroesophageal reflux disease) K21.9 ; Routine adult health maintenance Z00.00 ; Encounter for immunization Z23 ; Type 2 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, unspecified E11.40 and [facility] 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 [facility] [id number], [place] [address] 1001 July, Type 2 diabetes mellitus without complications E11.9 and Type 2 diabetes mellitus without complications E11.9 [facility] [address], [place] [address]- 0273 July, [facility] [address], [place] [address]- 6558 July, [facility] [address], [place] [address] 3576 Mar, Type 2 diabetes mellitus without complications E11.9 [facility] [id number] [address]- 7078 Mar, [facility] [address], [place] [address]- 2071 Feb, Type 2 diabetes mellitus without complications E11.9 [facility] [address] [place] [address]- 9159 Jan, Type 2 diabetes mellitus without complications E11.9 [facility] [address], [place] [address]- 9598 Jan, Type 2 diabetes mellitus without complications E11.9 [facility] [address], [place] [address]- 6772 Nov, [facility] [address], [place] [address]- 0297 Oct, Type 2 diabetes mellitus without complications E11.9 [facility] [address], [place] [address]- 7141 Oct, Type 2 diabetes mellitus without complications E11.9 ; Essential hypertension I10 and Neck pain M54.2 [facility] [address], [place] [address]- 7827 Sep, [facility] [address], [place] [address]- 5546 Aug, Type 2 diabetes mellitus without complications E11.9 [facility] [id number], [place] [address]- 9955 Jun, Type 2 diabetes mellitus without complications E11.9 ; Neck pain M54.2 and Essential hypertension I10 [facility] [id number] [place] [address] 47486- 7352 17 Jun, 2016 [facility] [id number] [place] [address] 65842- 1416 14 Jun, 2016 [facility] [id number] [place] [address] 82823- 9188 10 Jun, 2016 GERD (gastroesophageal reflux disease) K21.9 and Type 2 diabetes mellitus without complications E11.9 [facility] [id number] [place] [address] 48691- 4201 10 Mar, 2016 Paresthesias in right hand R20.2 [facility] [address] [address]- 7013 Feb, Type 2 diabetes mellitus without complications E11.9 [facility] [id number] [place] [address] [id number] Feb, Encounter for dental examination Z01.20 [facility] [id number] [place] [address] 05743- 4114 Feb, Type 2 diabetes mellitus without complications E11.9 and Neck pain M54.2 [facility] [id number] [place] [address] 53606- 0765 02 Feb, 2016 Type 2 diabetes mellitus without complications E11.9 [facility] [id number] [place] [address] [id number] Jan, Dental examination Z01.20 [facility] [id number] [place] [address] 84810- 4867 Jan, [facility] [id number] [place] [address] 10187- 2976 Jan, [facility] [id number] [place] [address] [id number] Dec, Dental caries K02.9 [facility] [id number] [place] [address] 41579- 5688 Nov, [facility] [id number], [place] [address]- 7373 Nov, [facility] [id number] [place] [address] 92537- 2386 Oct, Type 2 diabetes mellitus without complications E11.9 ; Neck pain M54.2 and Essential hypertension I10 [facility] [id number] [place] [address] 55911- 0764 Oct, [facility] [id number] [place] [address] [id number] Oct, Dental examination Z01.20 [facility] [id number] [place] [address] 85569- 5409 Sep, [facility] [id number] [place] [address] 01395- 8535 Sep, [facility] [id number] [place] [address] 53983- 5328 Aug, Essential (primary) hypertension I10 [facility] [id number] [place] [address] 23483- 5322 Aug, [facility] [id number] [place] [address] 94321- 4466 Aug, [facility] [id number] [place] [address] 99195- 9453 July, Essential (primary) hypertension I10 [facility] [id number] [place] [address] 35747- 2853 July, Essential (primary) hypertension I10 and Type 2 diabetes mellitus without complications E11.9 [facility] [id number] [place] [address] 76495- 7432 July, [facility] [id number] [place] [address] 22087- 0775 Jun, GERD (gastroesophageal reflux disease) K21.9 [facility] [id number] [place] [address] 24527- 6390 Jun, GERD (gastroesophageal reflux disease) K21.9 [facility] [address] 72749- 8368 Jun, [facility] [address] 77178- 5036 Jun, Neuropathy G62.9 [facility] [address] 98788- 5353 May, Essential (primary) hypertension I10 [facility] [id number] [place] [address] 81190 -2971 May, Bronchitis J40 [facility] [address] 07393- 7362 15 May, 2015 Type 2 diabetes mellitus without complications E11.9 and Essential (primary) hypertension I10 [facility] [address] 13624- 5859 May, [facility] [address] 22612- 0418 May, GERD (gastroesophageal reflux disease) K21.9 [facility] [id number] [place] [address] 62551- 3523 Apr, Other and unspecified hyperlipidemia 272.4 ; Unspecified essential hypertension 401.9 ; Type 2 diabetes mellitus without complications E11.9 ; Neck pain M54.2 and Paresthesias in right hand R20.2 [facility] [id number] [place] [address] 19369- 2430 11 Apr, 2015 [facility] [id number] [place] [address] 95276- 7011 Apr, Neuropathy G62.9 [facility] [id number] [place] [address] 65510- 1313 Mar, [facility] [id number] [place] [address] 99435- 1145 Feb, [facility] [address], [place] [address]- 5561 Jan, [facility] [id number] [place] [address] 82305- 1157 Dec, [facility] [id number] [place] [address] 79760- 3436 Dec, Type 2 diabetes mellitus without complications E11.9 ; Encounter for immunization Z23 and Neck pain M54.2 [facility] [id number] [place] [address] 18773- 8302 Dec, [facility] [id number] [place] [address] 31717- 7599 Nov, [facility] [id number] [place] [address] 00701- 7770 Nov, [facility] [id number] [place] [address] 14009- 9272 Oct, [facility] [id number] [place] [address] 40064- 9651 Oct, [facility] [id number] [place] [address] 43435- 8809 Sep, [facility] [id number] [place] [address] 41335- 1436 Sep, Coronary atherosclerosis of unspecified type of vessel, knik or graft 414.00 ; Diabetes mellitus without mention of complication, type II or unspecified type, not stated as uncontrolled 250.00 ; Hyperlipidemia 272.4 and HTN (hypertension) 401.9 [facility] [id number] [place] [address] 69819- 0529 Aug, [facility] [id number] [place] [address] 34255- 9652 July, [facility] [id number] [place] [address] 78168- 9335 Jun, [facility] [address] [facility] [id number] [place] [address]- 4890 Jun, [facility] [place] [facility] [address] [id number] [place] [address]- 6428 May, [facility] [place] [facility] [address] [id number] [place] 1771 May, [facility] [place] [facility] [address] [id number] [place] [address]- 9584 May, [facility] [place] [facility] [address] [id number] [place] [address]- 3474 May, [facility] [place] [facility] [address] [id number] [place] [address]- 2867 Apr, [facility] [place] [facility] [address] [facility] [id number] [place] [address]- 0336 Apr, [facility] [place] [facility] [address] [id number] [place] [address]- 9848 Apr, [facility] [place] [facility] [address] [id number] [place] [address]- 3283 Apr, [facility] [place] [facility] [address] [facility] [id number] [place] [address]- 9888 Apr, [facility] [place] [facility] [address] [facility] [id number] [place] [address]- 5212 Apr, [facility] [place] [facility] [address] [id number], [place] [address]- 5338 Apr, [facility] [place] [facility] [address] [id number] [place] 8240 Apr, [facility] [place] [facility] [address] [id number] [place] [address]- 2867 Mar, [facility] [place] [facility] [address] [facility] [id number], [place] [address]- 5712 Mar, [facility] [place] [facility] [address] [facility] [id number], [place] [address]- 0572 Mar, [facility] [place] [facility] [address] [id number] [place] [address]- 4066 Mar, [facility] [place] [facility] [address] [id number] [place] 8574 Mar, [facility] [place] [facility] [address] [id number] [place] [address]- 8477 Mar, [facility] [place] [facility] [address] [id number] [place] [address]- 5058 Mar, [facility] [place] [facility] [address] [id number] [place] [address]- 7478 Mar, [facility] [place] [facility] [address] [id number] [place] [address]- 4925 Feb, [facility] [place] [facility] [address] [id number] [place] [address]- 9667 Feb, [facility] [place] [facility] [address] [id number] [place] [address]- 2860 Feb, [facility] [place] [facility] [address] [id number] [place] [address]- 2097 Feb, [facility] [place] [facility] [address] [id number] [place] [address]- 2105 Feb, [facility] [place] [facility] [address] [id number] [place] [address]- 2978 Feb, [facility] [place] [facility] [address] [id number] [place] [address]- 4592 Feb, [facility] [place] [facility] [address] [id number] [place] [address]- 5018 Feb, [facility] [place] [facility] [address] [id number] [place] [address]- 4696 Feb, [facility] [place] [facility] [address] [id number] [place] [address]- 5202 Feb, [facility] [place] [facility] [address] [id number] [place] [address]- 8651 Jan, [facility] [place] [facility] [address] [id number] [place] [address]- 1722 Jan, [facility] [place] [facility] [address] [id number] [place] [address]- 2720 Dec, [facility] [place] [facility] [address] [id number] [place] [address]- 0670 Dec, [facility] [place] [facility] [address] [id number] [place] [address]- 6486 Dec, [facility] [place] [facility] [address] [id number] [place] [address]- 2807 Dec, [facility] [place] [facility] [address] [id number] [place] [address]- 4865 Nov, [facility] [place] [facility] [address] [id number] [place] [address]- 7077 Nov, [facility] [place] [facility] [address] [id number] [place] [address]- 7706 Nov, [facility] [place] [facility] [address] [id number] [place] [address]- 3555 Nov, [facility] [place] [facility] [address] [id number] [place] [address]- 0512 Oct, [facility] [place] [facility] [address] [id number] [place] [address]- 4960 Oct, [facility] [place] [facility] [address] [id number] [place] [address]- 6691 Oct, [facility] [place] [facility] [address] [id number] [place] [address]- 3674 Oct, [facility] [place] [facility] [address] [id number] [place] 3312 Oct, [facility] [place] [facility] [address] [id number] [place] [address]- 8414 Sep, [facility] [place] [facility] [address] [id number] [place] [address]- 8486 Sep, [facility] [place] [facility] [address] [id number] [place] [address]- 2408 Sep, [facility] [place] [facility] [address] [id number] [place] [address]- 9595 Sep, [facility] [place] [facility] [address] [id number] [place] [address]- 6571 Sep, [facility] [place] [facility] [address] [id number] [place] [address]- 1409 Sep, [facility] [place] [facility] [address] [id number] [place] [address]- 3108 Aug, [facility] [place] [facility] [address] [id number] [place] [address]- 6691 Aug, [facility] [place] [facility] [address] [id number] [place] [address]- 4685 Aug, [facility] [place] [facility] [address] [id number] [place] [address]- 7800 Aug, [facility] [place] [facility] [address] [id number] [place] [address]- 3544 Aug, [facility] [place] [facility] [address] [id number] [place] [address]- 5716 Aug, [facility] [place] [facility] [address] [id number], [place] [address]- 6283 July, [facility] [place] [facility] [address] [id number] [place] [address]- 1626 July, [facility] [place] [facility] [address] [id number] [place] [address]- 7148 Jun, [facility] [place] [facility] [address] [id number] [place] [address]- 1094 Jun, [facility] [place] [facility] [address] [id number] [place] [address]- 7158 11 May, 2013 [facility] [place] [facility] [address] [id number] [place] [address]- 4035 11 May, 2013 [facility] [place] [facility] [address] [id number] [place] [address]- 3841 07 May, 2013 [facility] [place] [facility] [address] [id number] [place] [address]- 0092 07 May, 2013 [facility] [place] [facility] [address] [id number] [place] [address]- 7098 10 Apr, 2013 [facility] [place] [facility] [address] [id number] [place] [address]- 5386 Apr, 2013 [facility] [place] [facility] [address] [id number] [place] [address]- 2217 Apr, 2013 [facility] [place] [facility] [address] [id number] [place] [address]- 4712 Apr, 2013 [facility] [place] [facility] [address] [id number] [place] [address]- 0583 Apr, [facility] [place] [facility] [address] [id number] [place] [address]- 8220 Apr, [facility] [place] [facility] [address] [facility] [id number] [place] [address]- 5680 Feb, [facility] [place] [facility] [address] [id number] [place] [address]- 0596 Feb, [facility] [place] [facility] [address] [id number] [place] [address]- 2237 Feb, [facility] [place] [facility] [address] [id number] [place] 1196 Feb, [facility] [place] [facility] [address] [id number] [place] [address]- 7717 Jan, [facility] [place] [facility] [address] [facility] [id number] [place] [address]- 9347 Jan, [facility] [place] [facility] [address] [id number] [place] [address]- 9258 Dec, [facility] [place] [facility] [address] [id number] [place] [address]- 2546 Dec, [facility] [place] [facility] [address] [id number] [place] [address]- 8366 Dec, [facility] [place] [facility] [address] [id number] [place] [address]- 2546 Dec, [facility] [place] [facility] [address] [id number] [place] [address]- 1866 Oct, [facility] [place] [facility] [address] [id number] [place] [id number] Oct, [facility] [place] [facility] [address] [id number] [place] [id number] Oct, [facility] [place] [facility] [address] [id number] [place] [address] Oct, [facility] [place] [facility] [address] [id number] [place] [address] Sep, [facility] [place] [facility] [address] [id number] [place] [address] Sep, [facility] [place] [facility] [address] [id number] [place] [address] Aug, [facility] [place] [facility] [address] [id number], [place] [address] Aug, [facility] [place] [facility] [address] [id number] [place] [address] Aug, [facility] [place] [facility] [address] [id number] [place] [address] Aug, [facility] [place] [facility] [address] [id number] [place] [address] July, [facility] [place] [facility] [address] [id number] [place] [address] Jun, [facility] [address] [id number] [place] [address] May, [facility] [address] [id number] [place] [address] May, [facility] [address] [id number] [place] [address] May, [facility] [address] [id number] [place] [address] May, [facility] [address] [id number] [place] [address] May, [facility] [address] [id number] [place] [address] Apr, [facility] [address] [facility] [id number] [place] [address] Apr, [facility] [address] [id number] [place] [address] Apr, [facility] [address] [id number] [place] [address] Apr, [facility] [address] [facility] [id number] [place] [address] Mar, [facility] [address] [id number] [place] [address] Mar, [facility] [place] [facility] [address] [id number], [place] [address] Mar, [facility] [place] [facility] [address] [id number] [place] [address] Mar, [facility] [place] [facility] [address] [id number] [place] [address] Jan, [facility] [place] [facility] [address] [facility] [id number] [place] [address] Jan, [facility] [place] [facility] [address] [id number] [place] [address] 15 Jan, 2012 [facility] [place] [facility] [address] [id number] [place] [address] Jan, [facility] [place] [facility] [address] [id number] [place] [address] Jan, [facility] [place] [facility] [address] [id number] [place] [address] Jan, [facility] [place] [facility] [address] [id number] [place] [address] Jan, [facility] [place] [facility] [address] [id number] [place] [address] Jan, [facility] [place] [facility] [address] [id number] [place] [address] Jan, [facility] [place] [facility] [address] [id number] [place] [address] Jan, [facility] [place] [facility] [address] [id number] [place] [address] Dec, [facility] [place] [facility] [address] [id number] [place] [address] Dec, [facility] [place] [facility] [address] [id number] [place] [address] Dec, [facility] [place] [facility] [address] [id number] [place] [address] Nov, [facility] [place] [facility] [address] [id number] [place] [address] 26 Nov, 2011 [facility] [place] [facility] [address] [id number] [place] [address] Nov, [facility] [place] [facility] [address] [id number] [place] [address] Nov, [facility] [place] [facility] [address] [id number] [place] [address] Oct, [facility] [address] [facility] [id number] [place], [place] [id number] Oct, IMMUNIZATIONS No Known Immunizations SOCIAL HISTORY Never Assessed REASON FOR VISIT Controlled Med Refill PLAN OF CARE VITAL SIGNS MEDICATIONS Medication Instructions Dosage Frequency Start Date End Date Duration Status Hydrocodone-Acetaminophen 10-325 MG Orally every 8 hrs 1 tablet as needed 8h Feb, 28 days Active RESULTS No Results PROCEDURES No Known procedures INSTRUCTIONS MEDICATIONS ADMINISTERED No Known Medications MEDICAL [...]
--- OUTSIDE RECORDS SUMMARY | 2018-03-09 09:16 | XMS REPORT ---
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 Active [id number] Problem Type 2 diabetes mellitus without complications E11.9 Active 185761105 Problem Paresthesias in right hand R20.2 Active 872450629 Problem Hyperlipidemia, unspecified hyperlipidemia type E78.5 Active 25666547 Problem Chronic kidney disease, unspecified CKD stage N18.9 Active 430413989 Problem Type 2 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, unspecified E11.40 Active 24368853 Problem Essential hypertension I10 Active 09249943 Problem Neck pain M54.2 Active 96701754 Problem senior care 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 Active 788383797 Problem GERD (gastroesophageal reflux disease) K21.9 Active [id number] ALLERGIES No Information ENCOUNTERS Encounter Location Date Diagnosis [place] [id number] [place] [address] 77062- 2873 Feb, Essential (primary) hypertension I10 [facility] [id number] [place] [address] 30499- 9340 Feb, [facility] [id number] [place] [address] 06519- 8096 Jan, Type 2 diabetes mellitus without complications E11.9 [facility] [id number] [place] [address] 13892- 6312 Dec, [facility] [address] [address] Dec, Type 2 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, unspecified E11.40 ; senior care 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 and Chronic kidney disease, unspecified CKD stage N18.9 [facility] [address] [address] 5541 15 Dec, 2017 Type 2 diabetes mellitus without complications E11.9 [facility] [address] [address] 6742 10 Dec, 2017 [facility] [id number] [address] 3710 09 Dec, 2017 Type 2 diabetes mellitus without complications E11.9 [facility] [address] [address] 2806 08 Dec, 2017 [facility] [id number] [place] [address] 29806- 9131 Oct, [facility] [address] [address] 6434 Sep, [facility] [address] [address] 5096 Aug, [facility] [id number] [place] [address] 49991- 4051 Aug, Exposure to hepatitis C Z20.5 and Routine adult health maintenance Z00.00 [place] [address] [address] 2293 Aug, Exposure to hepatitis C Z20.5 [facility] [address] [address] 7861 11 Aug, 2017 Medicare annual wellness visit, initial Z00.00 ; 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 ; Hyperlipidemia, unspecified hyperlipidemia type E78.5 ; Essential hypertension I10 ; GERD (gastroesophageal reflux disease) K21.9 ; Routine adult health maintenance Z00.00 ; Encounter for immunization Z23 ; Type 2 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, unspecified E11.40 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 [facility] [address] [address] 1375 July, Type 2 diabetes mellitus without complications E11.9 and Type 2 diabetes mellitus without complications E11.9 [facility] [address] [address] 8076 July, [facility] [address] [address] 0992 July, [facility] [id number] [place] [address] 75318- 1706 Mar, Type 2 diabetes mellitus without complications E11.9 [facility] [id number] [place] [address] 84508- 9425 Mar, [facility] [id number] [place] [address] 93079- 7663 Feb, Type 2 diabetes mellitus without complications E11.9 [facility] [id number] [place] [address] 00913- 8745 Jan, Type 2 diabetes mellitus without complications E11.9 [facility] [address] [address]- 6463 Jan, Type 2 diabetes mellitus without complications E11.9 [facility] [address] [address]- 5541 Nov, [facility] [address] [address]- 4170 Oct, Type 2 diabetes mellitus without complications E11.9 [facility] [address], [place] [address]- 4162 Oct, Type 2 diabetes mellitus without complications E11.9 ; Essential hypertension I10 and Neck pain M54.2 [facility] [address], [place] [address]- 2918 Sep, [facility] [address] [address]- 7546 Aug, Type 2 diabetes mellitus without complications E11.9 [facility] [id number] [place] [address] 59754- 9702 20 Jun, 2016 Type 2 diabetes mellitus without complications E11.9 ; Neck pain M54.2 and Essential hypertension I10 [facility] [id number] [place] [address] 10836- 1912 17 Jun, 2016 [facility] [id number] [place] [address] 15492- 3505 14 Jun, 2016 [facility] [id number] [place] [address] 65130- 6589 10 Jun, 2016 GERD (gastroesophageal reflux disease) K21.9 and Type 2 diabetes mellitus without complications E11.9 [facility] [address] [id number] [place] [address] 10157- 1809 10 Mar, 2016 Paresthesias in right hand R20.2 [facility] [address] [place] [id number] [place] [address] 96079- 9812 Feb, Type 2 diabetes mellitus without complications E11.9 [facility] [id number] [place] [address] [id number] Feb, Encounter for dental examination Z01.20 [facility] [id number] [place] [address] 65860- 5653 Feb, Type 2 diabetes mellitus without complications E11.9 and Neck pain M54.2 [facility] [id number] [place] [address] 70414- 2943 Feb, Type 2 diabetes mellitus without complications E11.9 [facility] [id number] [place] [address] [id number] Jan, Dental examination Z01.20 [facility] [id number] [place] [address] 22668- 1547 Jan, [facility] [id number] [place] [address] 00868- 1442 Jan, [facility] [id number] [place] [address] [id number] Dec, Dental caries K02.9 [facility] [address] [address]- 3900 Nov, [facility] [id number] [place] [address] 96965- 1500 Nov, [facility] [id number] [place] [address] 22766- 8232 Oct, Type 2 diabetes mellitus without complications E11.9 ; Neck pain M54.2 and Essential hypertension I10 [facility] [id number] [place] [address] 65942- 7645 Oct, [facility] [id number] [place] [address] [id number] Oct, Dental examination Z01.20 [facility] [id number] [place] [address] 55448- 9534 Sep, [facility] [id number] [place] [address] 74769- 8510 Sep, [facility] [id number] [place] [address] 47813- 2641 Aug, Essential (primary) hypertension I10 [facility] [id number] [address]- 6114 Aug, [facility] [address], [place] [address]- 9314 Aug, [facility] [address], [place] [address]- 6639 July, Essential (primary) hypertension I10 [facility] [id number] [place] [address] 90298- 3652 July, Essential (primary) hypertension I10 and Type 2 diabetes mellitus without complications E11.9 [facility] [address] [address]- 3492 July, [facility] [id number] [place] [address] 10798- 9416 14 Jun, 2015 GERD (gastroesophageal reflux disease) K21.9 [facility] [id number] [place] [address] 24920- 5835 Jun, GERD (gastroesophageal reflux disease) K21.9 [facility] [id number] [place] [address] 16005- 6668 08 Jun, 2015 [facility] [address] [address]- 5034 Jun, Neuropathy G62.9 [facility] [id number] [place] [address] 51832- 6342 May, Essential (primary) hypertension I10 [facility] [id number] [place] [address] 43672 -8897 May, Bronchitis J40 [facility] [id number] [place] [address] 62400- 5501 May, Type 2 diabetes mellitus without complications E11.9 and Essential (primary) hypertension I10 [facility] [id number] [place] [address] 50561- 7306 May, [facility] [id number] [place] [address] 39742- 9580 May, GERD (gastroesophageal reflux disease) K21.9 [facility] [id number] [place] [address] 60601- 9057 Apr, Other and unspecified hyperlipidemia 272.4 ; Unspecified essential hypertension 401.9 ; Type 2 diabetes mellitus without complications E11.9 ; Neck pain M54.2 and Paresthesias in right hand R20.2 [facility] [id number] [place] [address] 55855- 8569 Apr, [facility] [id number] [place] [address] 96657- 8634 10 Apr, 2015 Neuropathy G62.9 [facility] [id number] [place] [address] 10248- 7626 Mar, [facility] [address] 6591 Feb, [facility] [id number] [place] [address] 27797- 5653 Jan, [facility] [id number] [place] [address] [id number]- 7009 Dec, [facility] [id number] [place] [address] 724379- 6826 Dec, Type 2 diabetes mellitus without complications E11.9 ; Encounter for immunization Z23 and Neck pain M54.2 [facility] [address] [id number] [place] [address] 01469- 4297 Dec, [facility] [id number] [place] [address] 96714- 3015 Nov, [facility] [id number] [place] [address] 12151- 5416 Nov, [facility] [id number] [place] [address] 16155- 3170 Oct, [facility] [address] [id number] [place] [address] 06958- 2628 Oct, [facility] [address], [place] [address]- 7660 Sep, [facility] [id number] [place] [address] 603356- 6217 Sep, Coronary atherosclerosis of unspecified type of vessel, grindstone or graft 414.00 ; Diabetes mellitus without mention of complication, type II or unspecified type, not stated as uncontrolled 250.00 ; Hyperlipidemia 272.4 and HTN (hypertension) 401.9 [facility] [address] [address] 1754 Aug, [facility] [id number] [place] [address] 88293- 9041 July, [facility] [place] [facility] [address] [id number] [place] [address]- 4869 Jun, [facility] [place] [facility] [address] [id number] [place] [address]- 6568 Jun, [facility] [place] [facility] [address] [id number] [place] [address]- 1973 May, [facility] [place] [facility] [address] [id number] [place] [address]- 6880 May, [facility] [place] [facility] [address] [id number] [place] [address]- 6888 May, [facility] [place] [facility] [address] [id number] [place] [address]- 9621 May, [facility] [place] [facility] [address] [facility] [id number] [place] [address]- 3357 Apr, [facility] [place] [facility] [address] [id number] [place] [address]- 0524 Apr, [facility] [place] [facility] [address] [id number] [place] [address]- 0377 Apr, [facility] [place] [facility] [address] [id number] [place] [address]- 9662 Apr, [facility] [place] [facility] [address] [id number] [place] [address]- 7571 Apr, [facility] [place] [facility] [address] [id number] [address]- 9774 Apr, [facility] [place] [facility] [address] [id number] [place] [address]- 7403 Apr, [facility] [place] [facility] [address] [id number] [place] [address]- 3540 Apr, [facility] [place] [facility] [address] [id number] [place] [address]- 5402 Mar, [facility] [place] [facility] [address] [id number] [place] [address]- 5404 Mar, [facility] [place] [facility] [address] [id number] [place] [address]- 3516 Mar, [facility] [place] [facility] [address] [id number] [place] [address]- 6327 Mar, [facility] [place] [facility] [address] [id number] [place] [address]- 4167 Mar, [facility] [place] [facility] [address] [id number] [place] [address]- 3550 Mar, [facility] [place] [facility] [address] [id number] [place] [address]- 6152 Mar, [facility] [place] [facility] [address] [id number] [place] [address]- 7943 Mar, [facility] [address] [id number] [place] [address]- 3619 Feb, [facility] [place] [facility] [address] [id number] [place] [address]- 5933 Feb, [facility] [place] [facility] [address] [id number] [place] [address]- 0896 Feb, [facility] [place] [facility] [address] [id number] [place] [address]- 0914 Feb, [facility] [place] [facility] [address] [id number] [place] [address]- 8212 Feb, [facility] [place] [facility] [address] [id number] [place] [address]- 8489 Feb, [facility] [place] [facility] [address] [id number] [place] [address]- 3511 Feb, [facility] [place] [facility] [address] [id number] [place] [address]- 8332 Feb, [facility] [place] [facility] [address] [id number] [place] 3585 Feb, [facility] [place] [facility] [address] [id number] [place] [address]- 4845 Feb, [facility] [place] [facility] [address] [id number] [place] [address]- 8182 Jan, [facility] [place] [facility] [address] [id number] [place] [address]- 6889 Jan, [facility] [place] [facility] [address] [id number] [place] [address]- 8629 Dec, [facility] [place] [facility] [address] [id number] [place] [address]- 4093 Dec, [facility] [place] [facility] [address] [id number] [place] [address]- 1695 Dec, [facility] [place] [facility] [address] [id number] [place] [address]- 9280 Dec, [facility] [place] [facility] [address] [id number] [place] [address]- 7175 Nov, [facility] [place] [facility] [address] [id number] [place] [address]- 2389 Nov, [facility] [place] [facility] [address] [id number] [place] [address]- 8431 Nov, [facility] [place] [facility] [address] [id number] [place] [address]- 3128 Nov, [facility] [place] [facility] [address] [id number] [place] [address]- 3212 Oct, [facility] [place] [facility] [address] [id number] [place] [address]- 2704 Oct, [facility] [place] [facility] [address] [id number] [place] [address]- 1628 Oct, [facility] [place] [facility] [address] [id number] [place] [address]- 0096 Oct, [facility] [place] [facility] [address] [id number] [place] [address]- 7695 Oct, [facility] [place] [facility] [address] [id number] [place] [address]- 5396 Sep, [facility] [place] [facility] [address] [id number] [place] 9024 Sep, [facility] [place] [facility] [address] [id number] [place] [address]- 8214 Sep, [facility] [place] [facility] [address] [id number] [place] [address]- 1129 Sep, [facility] [place] [facility] [address] [id number] [place] [address]- 0284 Sep, [facility] [place] [facility] [address] [id number] [place] [address]- 4829 Sep, [facility] [place] [facility] [address] [id number] [place] [address]- 2926 Aug, [facility] [place] [facility] [address] [id number] [place] [address]- 9007 Aug, [facility] [place] [facility] [address] [id number] [place] [address]- 5527 Aug, [facility] [place] [facility] [address] [id number] [place] [address]- 1237 Aug, [facility] [place] [facility] [address] [id number], [place] [address]- 3263 Aug, [facility] [place] [facility] [address] [id number] [place] [address]- 3705 Aug, [facility] [place] [facility] [address] [id number] [place] [address]- 8198 July, [facility] [place] [facility] [address] [id number] [place] [address]- 0211 July, [facility] [place] [facility] [address] [id number] [place] [address]- 4556 Jun, [facility] [place] [facility] [address] [id number] [place] [address]- 1393 15 Jun, 2013 [facility] [place] [facility] [address] [id number] [place] [address]- 0466 May, [facility] [place] [facility] [address] [id number] [place] [address]- 4756 May, [facility] [place] [facility] [address] [id number] [place] [address]- 6546 May, [facility] [place] [facility] [address] [id number] [place] [address]- 1411 May, [facility] [place] [facility] [address] [id number] [place] [address]- 3318 Apr, [facility] [place] [facility] [address] [id number] [place] [address]- 6912 Apr, [facility] [place] [facility] [address] [id number] [place] [address]- 6950 Apr, [facility] [place] [facility] [address] [id number] [place] [address]- 4120 Apr, [facility] [place] [facility] [address] [facility] [id number] [place] [address]- 9946 Apr, [facility] [place] [facility] [address] [id number] [place] [address]- 4702 Apr, [facility] [place] [facility] [address] [id number] [place] [address]- 7686 Feb, [facility] [place] [facility] [address] [id number] [place] [address]- 3349 Feb, [facility] [place] [facility] [address] [id number] [place] [address]- 8246 Feb, [facility] [place] [facility] [address] [id number] [place] [address]- 4863 Feb, [facility] [place] [facility] [address] [id number], [place] [address]- 1016 Jan, [facility] [place] [facility] [address] [id number] [place] [address] 254 Jan, [facility] [place] [facility] [address] [id number] [place] [address]- 2546 Dec, [facility] [place] [facility] [address] [id number] [place] [address]- 2546 Dec, [facility] [place] [facility] [address] [id number], [place] [address]- 2546 Dec, [facility] [place] [facility] [address] [id number] [place] [address]- 2547 Dec, [facility] [place] [facility] [address] [id number], [place] [address] 2546 Oct, [facility] [place] [facility] [address] [id number] [address] Oct, [facility] [place] [facility] [address] [id number] [id number] Oct, [facility] [place] [facility] [address] [id number] [place] [address]- 2546 Oct, [facility] [place] [facility] [address] [id number], [place] [address]- 2546 Sep, [facility] [place] [facility] [address] [id number], [place] [address]- 2546 Sep, [facility] [place] [facility] [address] [id number], [place] [address]- 2546 Aug, [facility] [place] [facility] [address] [id number] [place] [address] Aug, [facility] [place] [facility] [address] [id number], [place] [address] Aug, [facility] [place] [facility] [address] [id number], [place] [address] Aug, [facility] [place] [facility] [address] [id number] [place] [address] July, [facility] [address] [id number] [place] [address] Jun, [facility] [address] [id number] [place] [address] May, [facility] [address] [id number] [place] [address] May, [facility] [address] [id number] [place] [address] May, [facility] [address] [id number] [place] [address] May, [facility] [address] [id number] [place] [address] May, [facility] [address] [id number] [place] [address] Apr, [facility] [address] [id number] [place] [address] Apr, [facility] [address] [id number] [place] [address] Apr, [facility] [address] [id number] [place] [address] Apr, [facility] [address] [id number] [place] [address] Mar, [facility] [address] [id number] [place] [address] Mar, [facility] [place] [facility] [address] [id number] [place] [address] Mar, [facility] [place] [facility] [address] [id number] [place] [address] Mar, [facility] [place] [facility] [address] [id number] [place] [address] Jan, [facility] [place] [facility] [address] [id number] [place] [address] 16 Jan, 2012 [facility] [place] [facility] [address] [id number] [place] [address] Jan, [facility] [place] [facility] [address] [id number] [place] [address] Jan, [facility] [place] [facility] [address] [id number] [place] [address] Jan, [facility] [place] [facility] [address] [id number] [place] [address]- [address] Jan, [facility] [place] [facility] [address] [id number] [place] [address] Jan, [facility] [place] [facility] [address] [facility] [id number] [place] [address] Jan, [facility] [place] [facility] [address] [id number], [place] [address] Jan, [facility] [place] [facility] [address] [facility] [id number] [place] [address] Jan, [facility] [place] [facility] [address] [facility] [id number], [place] [address] Dec, [facility] [place] [facility] [address] [facility] [id number], [place] [address] Dec, [facility] [place] [facility] [address] [id number], [place] [address] Dec, [facility] [place] [facility] [address] [id number], [place] [address] 27 Nov, 2011 [facility] [place] [facility] [address] [id number], [place] [address] 26 Nov, 2011 [facility] [place] [facility] [address] [facility] [id number][place] [address] 12 Nov, 2011 [facility] [place] [facility] [address] [id number], [place] [address] Nov, [facility] [address] [facility] [id number] [place] [address] Oct, [facility] [address] [facility] [id number], [place] [address] Oct, IMMUNIZATIONS No Known Immunizations SOCIAL HISTORY Never Assessed REASON FOR VISIT Medication refill request PLAN OF CARE VITAL SIGNS MEDICATIONS Medication Instructions Dosage Frequency Start Date End Date Duration Status Lipitor 40 MG TAKE ONE TABLET BY MOUTH ONCE PER DAY 90 Active Pantoprazole Sodium 40MG TAKE ONE TABLET BY MOUTH ONCE DAILY 90 days Active RESULTS No Results PROCEDURES No [...]
--- OUTSIDE RECORDS SUMMARY | 2018-03-09 09:17 | XMS REPORT ---
Author Author GEE AMADO [facility] Address [address] [place] [address] Care Team Providers Care Damascener Name Role Phone GEE AMADO Unavailable PROBLEMS Type Condition ICD9-CM Code LKZ23-PI Code Onset Dates Condition Status SNOMED Code Problem Coronary artery disease involving [place] coronary artery of [place] heart without angina pectoris I25.10 Active 5690553489589 Problem Type 2 diabetes mellitus without complications E11.9 Active 629454531 Problem Paresthesias in right hand R20.2 Active 214439266 Problem Hyperlipidemia, unspecified hyperlipidemia type E78.5 Active 19855595 Problem Chronic kidney disease, unspecified CKD stage N18.9 Active 268590469 Problem Type 2 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, unspecified E11.40 Active 77617203 Problem Essential hypertension I10 Active 04913151 Problem Neck pain M54.2 Active 20142099 Problem correction 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 Active 374873464 Problem GERD (gastroesophageal reflux disease) K21.9 Active 170823095 ALLERGIES No Information ENCOUNTERS Encounter Location Date Diagnosis [place] [id number] [place] [address]4489- 1653 Jan, Type 2 diabetes mellitus without complications E11.9 [place] [id number] [place] [address] 71876- 7901 Dec, [place] [id number] [place] [address] 43074- 0363 Dec, Type 2 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, unspecified E11.40 ; correction 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 and Chronic kidney disease, unspecified CKD stage N18.9 [place] [id number] [address] 4[address] Dec, Type 2 diabetes mellitus without complications E11.9 [place] [id number] [address] Dec, [facility] [id number] [address] 09 Dec, 2017 Type 2 diabetes mellitus without complications E11.9 [facility] [id number] [address] 02[address] Dec, [facility] [id number] [address] 7418 Oct, [facility] [id number] [address] Sep, [facility] [id number] [address] 48[address] Aug, [facility] [id number] [address] 8812 Aug, Exposure to hepatitis C Z20.5 and Routine adult health maintenance Z00.00 [facility] [address] [address] 0316 Aug, Exposure to hepatitis C Z20.5 [facility] [id number] [address]- 49[address] Aug, Medicare annual wellness visit, initial Z00.00 ; Coronary artery disease involving [place] coronary artery of [place] heart without angina pectoris I25.10 ; Hyperlipidemia, unspecified hyperlipidemia type E78.5 ; Essential hypertension I10 ; GERD (gastroesophageal reflux disease) K21.9 ; Routine adult health maintenance Z00.00 ; Encounter for immunization Z23 ; Type 2 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, unspecified E11.40 and correction 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 [facility] [address] [address] 9648 July, Type 2 diabetes mellitus without complications E11.9 and Type 2 diabetes mellitus without complications E11.9 [facility] [address] [address] 8286 July, [place] [id number] [address] 8636 July, [facility] [id number] [address] 5366 Mar, Type 2 diabetes mellitus without complications E11.9 [facility] [address] [place] [address] 6169 Mar, [facility] [id number] [address] 3653 Feb, Type 2 diabetes mellitus without complications E11.9 [facility] [address] [address]- 2422 Jan, Type 2 diabetes mellitus without complications E11.9 [facility] [address] [place] [address]- 5976 Jan, Type 2 diabetes mellitus without complications E11.9 [facility] [address] [address] 5060 Nov, [facility] [id number] [address]- 6456 Oct, Type 2 diabetes mellitus without complications E11.9 [facility] [id number] [address]- 7147 Oct, Type 2 diabetes mellitus without complications E11.9 ; Essential hypertension I10 and Neck pain M54.2 [facility] [id number] [address]- 7138 Sep, [facility] [id number] [address]- 1013 Aug, Type 2 diabetes mellitus without complications E11.9 [facility] [address] [address] Jun, Type 2 diabetes mellitus without complications E11.9 ; Neck pain M54.2 and Essential hypertension I10 [facility] [address] [address]- 3978 17 Jun, 2016 [facility] [address] [id number] [place] [address] 86716- 2072 14 Jun, 2016 [facility] [address] [place] [address] [id number] [place] [address] 04042- 8109 10 Jun, 2016 GERD (gastroesophageal reflux disease) K21.9 and Type 2 diabetes mellitus without complications E11.9 [facility] [address] [place] [address] [id number] [place] [address] 73990- 6992 Mar, Paresthesias in right hand R20.2 [facility] [address] [place] [id number] [place] [address] 35084- 2338 Feb, Type 2 diabetes mellitus without complications E11.9 [facility] [id number] [place] [address] [id number] Feb, Encounter for dental examination Z01.20 [facility] [address] [address]- 2458 Feb, Type 2 diabetes mellitus without complications E11.9 and Neck pain M54.2 [facility] [address] [place] [id number] [place] [address] 14735- 4434 02 Feb, 2016 Type 2 diabetes mellitus without complications E11.9 [facility] [address] [id number] [place] [address] [id number] Jan, Dental examination Z01.20 [facility] [address] [place] [address] [id number] [place] [address] 99209- 9438 Jan, [facility] [address] [id number] [place] [address] 70234- 4454 Jan, [facility] [id number] [place] [address] [id number] Dec, Dental caries K02.9 [facility] [address] [id number] [place] [address] 60437- 6466 30 Nov, 2015 [facility] [address] [id number] [place] [address] 57813- 2494 Nov, [facility] [address] [address]- 5798 Oct, Type 2 diabetes mellitus without complications E11.9 ; Neck pain M54.2 and Essential hypertension I10 [facility] [address] [address]- 3055 Oct, [facility] [id number] [id number] Oct, Dental examination Z01.20 [facility] [address] [address] [id number] [place] [address] 26398- 3222 Sep, [facility] [address] [id number] [place] [address] 99416- 3962 Sep, [facility] [address] [place] [id number] [place] [address] 74645- 4873 Aug, Essential (primary) hypertension I10 [facility] [address] [place] [id number] [place] [address] 88657- 8702 Aug, [facility] [id number] [place] [address] 79864- 7687 Aug, [facility] [id number] [place] [address] 45608- 1690 July, Essential (primary) hypertension I10 [facility] [address] [address]- 5255 July, Essential (primary) hypertension I10 and Type 2 diabetes mellitus without complications E11.9 [facility] [address] [address]- 3275 July, [facility] [address] [place] [id number] [place] [address] 65606- 3580 14 Jun, 2015 GERD (gastroesophageal reflux disease) K21.9 [facility] [address] [address]- 7116 Jun, GERD (gastroesophageal reflux disease) K21.9 [facility] [address] [address]- 0205 Jun, [facility] [address] [place] [id number] [place] [address] 87645- 8207 Jun, Neuropathy G62.9 [facility] [address] [place] [id number] [place] [address] 20064- 7162 May, Essential (primary) hypertension I10 [facility] [address] [place] [id number] [place] [address] 93825 -5506 May, Bronchitis J40 [facility] [address] [place] [address] [id number] [place] [address] 58967- 7977 May, Type 2 diabetes mellitus without complications E11.9 and Essential (primary) hypertension I10 [facility] [address] [place] [id number] [place] [address] 88145- 6801 May, [facility] [address] [id number] [place] [address] 62590- 9093 May, GERD (gastroesophageal reflux disease) K21.9 [facility] [address] [place] [id number] [place] [address] 67775- 3552 Apr, Other and unspecified hyperlipidemia 272.4 ; Unspecified essential hypertension 401.9 ; Type 2 diabetes mellitus without complications E11.9 ; Neck pain M54.2 and Paresthesias in right hand R20.2 [facility] [address] [id number] [place] [address] 97070- 5164 Apr, [facility] [id number] [place] [address] 39463- 7711 Apr, Neuropathy G62.9 [facility] [address] [place] [id number] [place] [address] 03888- 5367 Mar, [facility] [address] [place] [id number] [place] [address] 81828- 7778 Feb, [facility] [address] [id number] [place] [address] 13364- 1132 Jan, [facility] [id number] [address]- 9726 Dec, [facility] [address] [place] [id number] [place] [address] 66512- 6151 Dec, Type 2 diabetes mellitus without complications E11.9 ; Encounter for immunization Z23 and Neck pain M54.2 [facility] [address] [id number] [place] [address] 96868- 0813 Dec, [facility] [address] [id number] [place] [address] 34016- 7197 Nov, [facility] [id number] [place] [address] 71302- 8354 Nov, [facility] [address] [id number] [place] [address] 74353- 1021 Oct, [facility] [id number] [place] [address] 70224- 3014 Oct, [facility] [address] [place] [id number] [place] [address] 28758- 2770 Sep, [facility] [address] [place] [id number] [place] [address] 81241- 2471 Sep, Coronary atherosclerosis of unspecified type of vessel, [place] or graft 414.00 ; Diabetes mellitus without mention of complication, type II or unspecified type, not stated as uncontrolled 250.00 ; Hyperlipidemia 272.4 and HTN (hypertension) 401.9 [facility] [address] [address]- 0572 Aug, [facility] [address] [place] [id number] [place] [address] 82071- 2520 July, [facility] [address] [place] [id number] [place] [address] 42366- 6591 Jun, [facility] [address] [place] [id number] [place] [address] 97727- 5686 Jun, [facility] [place] [facility] [address] [facility] [id number] [place] [address]- 2829 May, [facility] [place] [facility] [address] [id number] [place] [address]- 0373 May, [facility] [place] [facility] [address] [id number] [place] [address]- 3359 May, [facility] [place] [facility] [address] [id number] [place] [address]- 7791 May, [facility] [place] [facility] [address] [id number] [place] [address]- 2285 Apr, [facility] [place] [facility] [address] [id number] [place] [address]- 6582 Apr, [facility] [place] [facility] [address] [id number] [place] [address]- 3905 Apr, [facility] [place] [facility] [address] [id number] [place] [address]- 4617 Apr, [facility] [place] [facility] [address] [id number] [place] [address]- 2458 Apr, [facility] [place] [facility] [address] [facility] [id number] [place] [address]- 3640 Apr, [facility] [place] [facility] [address] [facility] [id number] [place] [address]- 9008 Apr, [facility] [place] [facility] [address] [id number] [address]- 4709 Apr, [facility] [place] [facility] [address] [id number] [place] [address]- 8790 Mar, [facility] [place] [facility] [address] [id number] [place] [address]- 1425 Mar, [facility] [place] [facility] [address] [facility] [id number] [place] 6004 Mar, [facility] [place] [facility] [address] [id number] [address]- 6617 Mar, [facility] [place] [facility] [address] [id number] [place] [address]- 9787 Mar, [facility] [place] [facility] [address] [id number] [place] 9353 Mar, [facility] [place] [facility] [address] [id number] [place] [address]- 3699 Mar, [facility] [place] [facility] [address] [id number] [place] [address]- 6026 Mar, [facility] [place] [facility] [address] [id number] [place] [address]- 6334 Feb, [facility] [place] [facility] [address] [id number] [place] [address]- 8697 Feb, [facility] [place] [facility] [address] [id number] [place] [address]- 5154 Feb, [facility] [place] [facility] [address] [id number] [place] [address]- 4382 Feb, [facility] [place] [facility] [address] [id number] [place] [address]- 2448 Feb, [facility] [place] [facility] [address] [id number] [place] [address]- 1419 Feb, [facility] [place] [facility] [address] [id number] [place] [address]- 4930 Feb, [facility] [place] [facility] [address] [id number] [place] [address]- 6047 Feb, [facility] [place] [facility] [address] [id number] [place] [address]- 7159 Feb, [facility] [place] [facility] [address] [id number] [place] 1325 Feb, [facility] [place] [facility] [address] [id number] [place] [address]- 7064 Jan, [facility] [place] [facility] [address] [id number] [place] [address]- 2189 Jan, [facility] [place] [facility] [address] [id number] [place] [address]- 0340 Dec, [facility] [place] [facility] [address] [id number] [place] [address]- 9095 Dec, [facility] [place] [facility] [address] [id number] [place] [address]- 2896 Dec, [facility] [place] [facility] [address] [id number] [place] [address]- 1726 Dec, [facility] [place] [facility] [address] [id number] [place] [address]- 3323 Nov, [facility] [place] [facility] [address] [id number] [place] [address]- 1281 Nov, [facility] [place] [facility] [address] [id number] [place] [address]- 8363 Nov, [facility] [place] [facility] [address] [id number] [place] [address]- 7288 Nov, [facility] [place] [facility] [address] [id number] [place] [address]- 5569 Oct, [facility] [place] [facility] [address] [id number] [place] [address]- 1833 Oct, [facility] [place] [facility] [address] [id number] [place] [address]- 8073 Oct, [facility] [place] [facility] [address] [id number] [place] [address]- 8992 Oct, [facility] [place] [facility] [address] [id number] [place] [address]- 2077 Oct, [facility] [place] [facility] [address] [id number] [place] [address]- 9311 Sep, [facility] [place] [facility] [address] [id number] [place] 9726 Sep, [facility] [place] [facility] [address] [id number] [place] [address]- 6269 Sep, [facility] [place] [facility] [address] [id number] [place] [address]- 0159 Sep, [facility] [place] [facility] [address] [id number] [place] [address]- 8461 Sep, [facility] [place] [facility] [address] [id number] [place] [address]- 2493 Sep, [facility] [place] [facility] [address] [id number] [place] [address]- 5400 Aug, [facility] [place] [facility] [address] [id number] [place] [address]- 1879 Aug, [facility] [place] [facility] [address] [id number] [place] [address]- 7814 Aug, [facility] [place] [facility] [address] [id number] [place] [address]- 6918 Aug, [facility] [place] [facility] [address] [id number] [place] [address]- 5567 Aug, [facility] [place] [facility] [address] [id number] [place] [address]- 6279 Aug, [facility] [place] [facility] [address] [id number] [place] [address]- 9641 July, [facility] [place] [facility] [address] [id number] [address]- 1770 July, [facility] [place] [facility] [address] [id number] [place] [address]- 0306 Jun, [facility] [place] [facility] [address] [id number] [place] [address]- 1321 Jun, [facility] [place] [facility] [address] [id number] [place] [address]- 7267 May, [facility] [place] [facility] [address] [id number] [place] [address]- 5585 11 May, 2013 [facility] [place] [facility] [address] [id number] [place] [address]- 5160 07 May, 2013 [facility] [place] [facility] [address] [id number] [place] [address]- 5253 07 May, 2013 [facility] [place] [facility] [address] [id number] [place] [address]- 4680 Apr, 2013 [facility] [place] [facility] [address] [id number] [place] [address]- 9130 Apr, 2013 [facility] [place] [facility] [address] [id number] [place] [address]- 1587 Apr, 2013 [facility] [place] [facility] [address] [facility] [id number] [place] [address]- 4137 Apr, [facility] [place] [facility] [address] [facility] [id number] [place] [address]- 2887 Apr, [facility] [place] [facility] [address] [facility] [id number] [place] [address]- 5762 Apr, [facility] [place] [facility] [address] [facility] [id number] [place] [address]- 1583 Feb, [facility] [place] [facility] [address] [facility] [id number] [place] [address]- 1297 06 Feb, 2013 [facility] [place] [facility] [address] [facility] [id number] [place] [address]- 8017 Feb, [facility] [place] [facility] [address] [id number] [place] [address]- 3727 Feb, [facility] [place] [facility] [address] [id number] [place] [address]- 5970 Jan, [facility] [place] [facility] [address] [facility] [id number] [place] [address]- 6641 29 Jan, 2013 [facility] [place] [facility] [address] [facility] [place] [id number] [place] [address] Dec, [facility] [place] [facility] [address] [id number] [place] [address] Dec, [facility] [place] [facility] [address] [id number] [place] [address] Dec, [facility] [place] [facility] [address] [id number] [place] [address] Dec, [facility] [place] [facility] [address] [id number] [place] [address] Oct, [facility] [place] [facility] [address] [id number] [place] [id number] Oct, [facility] [place] [facility] [address] [id number] [place] [id number] Oct, [facility] [place] [facility] [address] [id number] [place] [address] Oct, [facility] [place] [facility] [address] [id number] [place] [address] Sep, [facility] [place] [facility] [address] [id number] [place] [address] Sep, [facility] [place] [facility] [address] [id number] [place] [address] Aug, [facility] [place] [facility] [address] [id number] [place] [address] Aug, [facility] [place] [facility] [address] [id number] [address] Aug, [facility] [place] [facility] [address] [id number] [place] [address] Aug, [facility] [place] [facility] [address] [id number] [place] [address] July, [facility] [place] [facility] [address] [id number] [place] [address] Jun, [facility] [place] [facility] [address] [id number] [place] [address] May, [facility] [address] [id number] [place] [address] May, [facility] [place] [facility] [address] [id number] [place] [address] May, [facility] [address] [id number] [place] [address] May, [facility] [place] [facility] [address] [id number] [place] [address] May, [facility] [address] [id number] [place] [address] Apr, [facility] [place] [facility] [address] [id number] [place] [address] Apr, [facility] [address] [facility] [place] [id number] [place] [address] Apr, [facility] [place] [facility] [address] [id number] [place] [address] Apr, [facility] [address] [facility] [place] [id number] [place] [address] Mar, [facility] [address] [id number] [place] [address] Mar, [facility] [address] [id number] [place] [address] Mar, [facility] [place] [facility] [address] [id number] [place] [address] Mar, [facility] [place] [facility] [address] [id number] [place] [address] Jan, [facility] [place] [facility] [address] [id number] [place] [address] 16 Jan, 2012 [facility] [place] [facility] [address] [facility] [place] [id number] [place] [address] 15 Jan, 2012 [facility] [place] [facility] [address] [id number] [place] [address] 15 Jan, 2012 [facility] [place] [facility] [address] [id number] [place] [address] Jan, [facility] [place] [facility] [address] [id number] [place] [address] Jan, [facility] [place] [facility] [address] [id number] [place] [address] Jan, [facility] [place] [facility] [address] [id number] [place] [address] Jan, [facility] [place] [facility] [address] [id number] [place] [address] Jan, [facility] [place] [facility] [address] [id number] [place] [address] Jan, [facility] [place] [facility] [address] [id number] [place] [address] Dec, [facility] [place] [facility] [address] [id number] [place] [address] Dec, [facility] [place] [facility] [address] [id number] [place] [address] Dec, [facility] [place] [facility] [address] [id number] [place] [address] 27 Nov, 2011 [facility] [place] [facility] [address] [id number] [place] [address] 26 Nov, 2011 [facility] [place] [facility] [address] [id number] [place] [address] Nov, [facility] [place] [facility] [address] [id number] [place] [address] Nov, [facility] [place] [facility] [address] [id number] [place] [address] Oct, [facility] [place] [facility] [address] [id number] [place] [address] Oct, IMMUNIZATIONS No Known Immunizations SOCIAL HISTORY Never Assessed REASON FOR VISIT refill request PLAN OF CARE VITAL SIGNS MEDICATIONS Medication Instructions Dosage Frequency Start Date End Date Duration Status Levemir Flexpen 100 unit/mL (3 mL) subcutaneously 2 times a day 82 Unit 12h 10 Apr, 2013 Active RESULTS No Results PROCEDURES No Known [...]
--- OUTSIDE RECORDS SUMMARY | 2018-03-09 09:18 | XMS REPORT ---
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 Active 557855583 Problem Type 2 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, unspecified E11.40 Active 11220809 Problem Neck pain M54.2 Active 56050425 Problem Type 2 diabetes mellitus without complications E11.9 Active 409118984 Problem GERD (gastroesophageal reflux disease) K21.9 Active 617789678 Problem Essential hypertension I10 Active 23680466 ALLERGIES No Information ENCOUNTERS Encounter Location Date Diagnosis [place] [id number] [place] [address] 01487- 6472 Dec, [place] [facility] [id number] [place] [address] 89270- 9077 Dec, [place] [facility] [id number] [place] [address] 31105- 3937 Dec, Type 2 diabetes mellitus without complications E11.9 [facility] [id number] [place] [address] 44377- 3463 Dec, [place] [id number] [place] [address] 46758- 0961 Oct, [facility] [id number] [place] [address] 74471- 1006 Sep, [place] [address] [address] 4582 Aug, [place] [id number] [place] [address] 98611- 2145 Aug, Exposure to hepatitis C Z20.5 and Routine adult health maintenance Z00.00 [place] [address] [address] 7104 11 Aug, 2017 Exposure to hepatitis C Z20.5 [place] [address] [address]- 7664 11 Aug, 2017 Medicare annual wellness visit, initial Z00.00 ; 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 pectoris I25.10 ; Hyperlipidemia, unspecified hyperlipidemia type E78.5 ; Essential hypertension I10 ; GERD (gastroesophageal reflux disease) K21.9 ; Routine adult health maintenance Z00.00 ; Encounter for immunization Z23 ; Type 2 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, unspecified E11.40 and detention 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 [place] [id number] [place] [address] 44433- 9390 30 Jul, 2017 Type 2 diabetes mellitus without complications E11.9 and Type 2 diabetes mellitus without complications E11.9 [place] [address] [address] 2118 July, [place] [address] [address]- 6397 July, [place] [address] [address]- 8555 Mar, Type 2 diabetes mellitus without complications E11.9 [place] [address] [address] 2732 Mar, [place] [id number] [place] [address] 41447- 2830 Feb, Type 2 diabetes mellitus without complications E11.9 [place] [id number] [place] [address] 47516- 8122 Jan, Type 2 diabetes mellitus without complications E11.9 [facility] [id number] [place] [address] 16261- 9747 Jan, Type 2 diabetes mellitus without complications E11.9 [facility] [address] [address]- 1212 Nov, [facility] [id number] [place] [address] 21357- 0004 Oct, Type 2 diabetes mellitus without complications E11.9 [facility] [id number] [place] [address] 74184- 1344 Oct, Type 2 diabetes mellitus without complications E11.9 ; Essential hypertension I10 and Neck pain M54.2 [facility] [id number] [place] [address] 03575- 4969 Sep, [place] [id number] [place] [address] 24454- 4355 Aug, Type 2 diabetes mellitus without complications E11.9 [facility] [id number] [place] [address] 85555- 2919 Jun, Type 2 diabetes mellitus without complications E11.9 ; Neck pain M54.2 and Essential hypertension I10 [facility] [id number] [place] [address] 51243- 5402 17 Jun, 2016 [facility] [id number] [place] [address] 59939- 5557 Jun, [facility] [id number] [place] [address] 10777- 9345 Jun, GERD (gastroesophageal reflux disease) K21.9 and Type 2 diabetes mellitus without complications E11.9 [facility] [id number] [place] [address] 37540- 2888 Mar, Paresthesias in right hand R20.2 [facility] [id number] [place] [address] 02330- 4289 Feb, Type 2 diabetes mellitus without complications E11.9 [facility] [address] [id number] [id number] Feb, Encounter for dental examination Z01.20 [facility] [id number] [place] [address] 47711475- 3445 Feb, Type 2 diabetes mellitus without complications E11.9 and Neck pain M54.2 [facility] [id number] [place] [address] 36967- 1353 Feb, Type 2 diabetes mellitus without complications E11.9 [facility] [id number] [place] [address] [id number] Jan, Dental examination Z01.20 [facility] [id number] [place] [address] 68560- 5528 Jan, [facility] [id number] [place] [address] 63891- 4735 Jan, [facility] [id number] [place] [address] [id number] Dec, Dental caries K02.9 [facility] [id number] [place] [address] 26360- 9645 Nov, [facility] [id number] [place] [address] 21103- 5570 Nov, [facility] [id number] [place] [address] 40778- 3691 Oct, Type 2 diabetes mellitus without complications E11.9 ; Neck pain M54.2 and Essential hypertension I10 [facility] [id number] [place] [address] 62136- 6121 Oct, [facility] [id number] [place] [address] [id number] Oct, Dental examination Z01.20 [facility] [id number] [place] [address] 26121- 8174 Sep, [facility] [address] [place] [address]- 8784 Sep, [facility] [id number] [place] [address] 43118- 1879 Aug, Essential (primary) hypertension I10 [facility] [id number] [place] [address] 38953- 5943 Aug, [facility] [id number] [place] [address] 68971- 7772 Aug, [facility] [id number] [place] [address] 89799- 0464 July, Essential (primary) hypertension I10 [facility] [id number] [place] [address] 61290- 2242 July, Essential (primary) hypertension I10 and Type 2 diabetes mellitus without complications E11.9 [facility] [id number] [place] [address] 00893- 4393 July, [facility] [id number] [place] [address] 72698- 1356 Jun, GERD (gastroesophageal reflux disease) K21.9 [facility] [id number] [place] [address] 99522- 6039 Jun, GERD (gastroesophageal reflux disease) K21.9 [facility] [id number] [place] [address] 09092- 3384 Jun, [facility] [id number] [place] [address] 99404- 9284 Jun, Neuropathy G62.9 [facility] [id number] [place] [address] 76848- 4787 May, Essential (primary) hypertension I10 [facility] [address] [address]6787 May, Bronchitis J40 [facility] [id number] [place] [address] 63131- 4737 15 May, 2015 Type 2 diabetes mellitus without complications E11.9 and Essential (primary) hypertension I10 [facility] [id number] [place] [address] 69804- 6980 10 May, 2015 [facility] [address] 48789- 9250 10 May, 2015 GERD (gastroesophageal reflux disease) K21.9 [facility] [address] 41135- 3607 25 Apr, 2015 Other and unspecified hyperlipidemia 272.4 ; Unspecified essential hypertension 401.9 ; Type 2 diabetes mellitus without complications E11.9 ; Neck pain M54.2 and Paresthesias in right hand R20.2 [facility] [address] 41613- 4702 11 Apr, 2015 [facility] [address] 02548- 5341 Apr, Neuropathy G62.9 [facility] [address] 06985- 2458 Mar, [facility] [address] 95390- 0362 Feb, [facility] [address] 11991- 9332 Jan, [facility] [address] 48937- 8762 Dec, [facility] [address] 50406- 7510 Dec, Type 2 diabetes mellitus without complications E11.9 ; Encounter for immunization Z23 and Neck pain M54.2 [facility] [address] 74514- 2197 09 Dec, 2014 [facility] [address] 44484- 3440 14 Nov, 2014 [facility] [address] [place] [address]- 4783 Nov, [facility] [address] [address]- 5682 Oct, [facility] [address] [address]- 7696 Oct, [facility] [address] [address]- 9830 Sep, [facility] [address] [address]- 1882 Sep, Coronary atherosclerosis of unspecified type of vessel, makah or graft 414.00 ; Diabetes mellitus without mention of complication, type II or unspecified type, not stated as uncontrolled 250.00 ; Hyperlipidemia 272.4 and HTN (hypertension) 401.9 [facility] [address] [address]- 0781 Aug, [facility] [address] [address]- 8455 July, [facility] [address] [address]- 1119 Jun, [facility] [address] [address]- 9893 Jun, [facility] [address] [address]- 2700 May, [facility] [id number] [address]- 1960 May, [facility] [id number] [address]- 7554 May, [facility] [address] [address]- 3656 May, [facility] [id number] [address]- 9456 Apr, [facility] [id number] [address]- 1598 Apr, 2014 [facility] [place] [facility] [address] [id number] [place] [address]- 8296 Apr, 2014 [facility] [place] [facility] [address] [id number] [place] [address]- 3366 Apr, 2014 [facility] [place] [facility] [address] [id number] [place] [address]- 5766 Apr, 2014 [facility] [place] [facility] [address] [id number] [place] [address]- 8287 Apr, 2014 [facility] [place] [facility] [address] [id number] [place] [address]- 0322 Apr, 2014 [facility] [place] [facility] [address] [id number] [place] [address]- 7450 Apr, 2014 [facility] [place] [facility] [address] [id number] [place] [address]- 4841 Mar, [facility] [place] [facility] [address] [id number] [place] [address]- 5662 Mar, [facility] [place] [facility] [address] [id number] [place] [address]- 3626 Mar, [facility] [place] [facility] [address] [id number] [place] [address]- 2728 Mar, [facility] [place] [facility] [address] [id number] [place] [address]- 7285 Mar, [facility] [place] [facility] [address] [id number] [place] [address]- 3792 Mar, [facility] [place] [facility] [address] [id number] [place] [address]- 9344 Mar, [facility] [place] [facility] [address] [id number] [place] [address]- 1456 Mar, [facility] [place] [facility] [address] [id number] [place] [address]- 1288 Feb, [facility] [place] [facility] [address] [id number] [place] [address]- 3256 Feb, [facility] [place] [facility] [address] [id number] [place] [address]- 5851 Feb, [facility] [place] [facility] [address] [id number] [place] 2405 Feb, [facility] [place] [facility] [address] [id number] [place] [address]- 3984 Feb, [facility] [place] [facility] [address] [id number] [place] [address]- 8892 Feb, [facility] [place] [facility] [address] [id number] [place] [address]- 2335 Feb, [facility] [place] [facility] [address] [id number] [place] [address]- 2484 Feb, [facility] [place] [facility] [address] [id number] [place] [address]- 6940 Feb, [facility] [place] [facility] [address] [id number] [place] [address]- 5772 Feb, [facility] [place] [facility] [address] [id number] [place] [address]- 1371 Jan, [facility] [place] [facility] [address] [id number] [place] [address]- 8350 Jan, [facility] [place] [facility] [address] [id number] [place] [address]- 9998 Dec, [facility] [place] [facility] [address] [id number] [place] [address]- 7703 Dec, [facility] [place] [facility] [address] [id number] [place] [address]- 6145 Dec, [facility] [place] [facility] [address] [id number] [place] [address]- 2118 Dec, [facility] [place] [facility] [address] [id number] [place] [address]- 1066 15 Nov, 2013 [facility] [place] [facility] [address] [id number] [place] [address]- 9317 15 Nov, 2013 [facility] [place] [facility] [address] [id number] [place] [address]- 1373 Nov, [facility] [place] [facility] [address] [id number] [place] [address]- 9684 Nov, [facility] [place] [facility] [address] [id number] [place] [address]- 6010 Oct, [facility] [place] [facility] [address] [id number] [place] [address]- 7247 Oct, [facility] [place] [facility] [address] [id number] [place] [address]- 7745 Oct, [facility] [place] [facility] [address] [id number] [place] [address]- 2376 Oct, [facility] [place] [facility] [address] [id number] [place] [address]- 7172 Oct, [facility] [place] [facility] [address] [id number] [place] [address]- 5225 Sep, [facility] [place] [facility] [address] [id number] [place] [address]- 8036 Sep, [facility] [place] [facility] [address] [id number] [place] [address]- 7218 Sep, [facility] [place] [facility] [address] [id number] [place] [address]- 0365 Sep, [facility] [place] [facility] [address] [id number] [place] [address]- 7522 Sep, [facility] [place] [facility] [address] [id number] [place] [address]- 3826 Sep, [facility] [place] [facility] [address] [id number] [place] [address]- 7923 Aug, [facility] [place] [facility] [address] [id number] [place] [address]- 8540 Aug, [facility] [place] [facility] [address] [id number] [place] [address]- 5819 Aug, [facility] [place] [facility] [address] [id number] [place] [address]- 5769 Aug, [facility] [place] [facility] [address] [id number] [place] [address]- 5327 Aug, [facility] [place] [facility] [address] [id number] [place] [address]- 3288 Aug, [facility] [place] [facility] [address] [id number] [place] [address]- 4470 July, [facility] [place] [facility] [address] [id number] [place] [address]- 8691 July, [facility] [place] [facility] [address] [id number] [place] [address]- 0267 Jun, [facility] [place] [facility] [address] [id number] [place] [address]- 6718 Jun, [facility] [place] [facility] [address] [id number] [place] [address]- 1341 May, [facility] [place] [facility] [address] [id number] [place] [address]- 5401 May, [facility] [place] [facility] [address] [id number] [place] [address]- 0195 May, [facility] [place] [facility] [address] [id number] [place] [address]- 2415 May, [facility] [place] [facility] [address] [id number] [place] [address]- 7937 Apr, [facility] [place] [facility] [address] [id number] [place] [address]- 7317 Apr, [facility] [place] [facility] [address] [id number] [place] [address]- 8977 Apr, 2013 [facility] [address] [id number] [place] [address]- 4849 Apr, 2013 [facility] [address] [id number] [place] [address]- 2003 Apr, 2013 [facility] [address] [id number] [place] [address]- 4292 Apr, [facility] [address] [id number] [place] [address]- 1535 Feb, [facility] [address] [id number] [place] [address]- 4279 Feb, [facility] [address] [id number] [place] [address]- 1942 Feb, [facility] [address] [id number] [place] [address]- 3851 Feb, [facility] [address] [id number] [place] [address]- 8935 Jan, [facility] [address] [id number] [place] [address]- 9865 Jan, [facility] [address] [id number] [place] [address]- 8378 Dec, [facility] [address] [id number] [place] [address]- 5092 Dec, [facility] [place] [facility] [address] [id number] [place] [address]- 6752 Dec, [facility] [place] [facility] [address] [id number] [place] [address]- 8334 Dec, [facility] [place] [facility] [address] [id number] [place] [address]- 3384 Oct, [facility] [address] [id number] [place] [id number] Oct, [facility] [place] [facility] [address] [id number] [place] [id number] Oct, [facility] [address] [id number] [place] [address]- 2098 Oct, [facility] [address] [id number] [place] [address]- 0266 Sep, [facility] [address] [id number] [place] [address]- 5873 Sep, [facility] [address] [id number] [place] [address]- 0029 Aug, [facility] [address] [id number] [place] [address]- 5879 Aug, [facility] [address] [id number] [place] [address]- 6366 Aug, [facility] [address] [id number] [place] [address]- 0080 Aug, [facility] [address] [id number] [place] [address]- 7053 July, [facility] [address] [id number] [place] [address]- 3808 Jun, [facility] [address] [id number] [place] [address]- 1840 May, [facility] [address] [id number] [place] [address]- 2636 May, [facility] [address] [id number] [place] [address]- 3034 May, [facility] [address] [id number] [place] [address]- 6106 May, [facility] [address] [id number] [place] [address]- 2546 May, [facility] [address] [id number] [place] [address]- 5825 Apr, [facility] [address] [id number] [place] [address]- 4285 Apr, [facility] [place] [facility] [address] [id number] [place] [address]- 9896 Apr, [facility] [place] [facility] [address] [id number] [place] [address]- 2036 Apr, [facility] [place] [facility] [address] [id number] [place] [address]- 9658 Mar, [facility] [place] [facility] [address] [id number] [place] [address]- 5976 Mar, [facility] [place] [facility] [address] [id number] [place] [address]- 8612 Mar, [facility] [place] [facility] [address] [id number] [place] [address]- 7093 Mar, [facility] [place] [facility] [address] [id number] [place] [address]- 7596 Jan, [facility] [place] [facility] [address] [id number] [place] [address]- 6527 Jan, [facility] [place] [facility] [address] [id number] [place] [address]- 3759 Jan, [facility] [place] [facility] [address] [id number] [place] [address]- 4422 Jan, [facility] [place] [facility] [address] [id number] [place] [address]- 3366 Jan, [facility] [place] [facility] [address] [id number] [place] [address]- 1398 Jan, [facility] [place] [facility] [address] [id number] [place] [address] Jan, [facility] [place] [facility] [address] [id number] [place] [address] Jan, [facility] [place] [facility] [address] [id number] [place] [address] Jan, [facility] [id number] [place] [address] Jan, [facility] [id number] [place] [address] Dec, [facility] [id number] [place] [address] Dec, [facility] [id number] [place] [address] Dec, [facility] [id number] [place] [address] Nov, [facility] [id number] [place] [address] Nov, [facility] [id number] [place] [address] Nov, [facility] [id number] [place] [address] Nov, [facility] [id number] [place] [address] Oct, [facility] [address] [id number] [place] [address] Oct, IMMUNIZATIONS No Known Immunizations SOCIAL HISTORY Never Assessed REASON FOR VISIT Prior Authorization Request PLAN OF CARE VITAL SIGNS MEDICATIONS Unknown [...]
--- OUTSIDE RECORDS SUMMARY | 2018-03-09 09:18 | XMS REPORT ---
Author Author GEE AMADO [facility] Address [address] [place] [address] Care Team Providers Care Lockstitch Sleeve Setter Name Role Phone GEE AMADO Unavailable PROBLEMS Type Condition ICD9-CM Code OOL92-FW Code Onset Dates Condition Status SNOMED Code Problem Coronary artery disease involving [place] coronary artery of [place] heart without angina pectoris I25.10 Active 8938875834987 Problem Type 2 diabetes mellitus without complications E11.9 Active 554255600 Problem Paresthesias in right hand R20.2 Active 436227263 Problem Hyperlipidemia, unspecified hyperlipidemia type E78.5 Active 84322186 Problem Chronic kidney disease, unspecified CKD stage N18.9 Active 851667992 Problem Type 2 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, unspecified E11.40 Active 05826429 Problem Essential hypertension I10 Active 52308680 Problem Neck pain M54.2 Active 75347568 Problem alf 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 Active 634818133 Problem GERD (gastroesophageal reflux disease) K21.9 Active 224990515 ALLERGIES No Information ENCOUNTERS Encounter Location Date Diagnosis [place] [id number] [place] [address] 75574- 9136 Dec, [facility] [id number] [place] [address] 32965- 0759 29 Dec, 2017 Type 2 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, unspecified E11.40 ; terminal carman 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 and Chronic kidney disease, unspecified CKD stage N18.9 [facility] [id number] [place] [address] 08417- 1705 15 Dec, 2017 Type 2 diabetes mellitus without complications E11.9 [place] [id number] [place] [address] 46022- 4642 Dec, [place] [id number] [address] 3[address] 09 Dec, 2017 Type 2 diabetes mellitus without complications E11.9 [facility] [address], [place] [address] 9571 Dec, [facility] [address], [place] [address] 0081 Oct, [facility] [address], [place] [address] 4267 Sep, [facility] [address], [place] [address] 2217 Aug, [facility] [id number] [place] [address] 75479- 4974 Aug, Exposure to hepatitis C Z20.5 and Routine adult health maintenance Z00.00 [facility] [id number] [address] 9270 Aug, Exposure to hepatitis C Z20.5 [facility] [address], [place] [address] Aug, Medicare annual wellness visit, initial Z00.00 ; Coronary artery disease involving [place] coronary artery of [place] heart without angina pectoris I25.10 ; Hyperlipidemia, unspecified hyperlipidemia type E78.5 ; Essential hypertension I10 ; GERD (gastroesophageal reflux disease) K21.9 ; Routine adult health maintenance Z00.00 ; Encounter for immunization Z23 ; Type 2 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, unspecified E11.40 and terminal carman 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 [facility] [address], [place] [address] 9852 July, Type 2 diabetes mellitus without complications E11.9 and Type 2 diabetes mellitus without complications E11.9 [facility] [address], [place] [address]- 4459 July, [facility] [address], [place] [address]- 4856 July, [facility] [id number], [place] [address] 6919 Mar, Type 2 diabetes mellitus without complications E11.9 [facility] [address] [place] [address] 5156 Mar, [facility] [address], [place] [address]- 6516 Feb, Type 2 diabetes mellitus without complications E11.9 [facility] [id number] [address]- 3256 Jan, Type 2 diabetes mellitus without complications E11.9 [facility] [address], [place] [address]- 7430 Jan, Type 2 diabetes mellitus without complications E11.9 [facility] [address], [place] [address]- 3157 Nov, [facility] [id number], [place] [address]- 8979 Oct, Type 2 diabetes mellitus without complications E11.9 [facility] [address], [place] [address]- 4348 Oct, Type 2 diabetes mellitus without complications E11.9 ; Essential hypertension I10 and Neck pain M54.2 [facility] [address], [place] [address]- 3906 Sep, [facility] [address], [place] [address]- 6462 Aug, Type 2 diabetes mellitus without complications E11.9 [facility] [id number], [place] [address]- 5396 Jun, Type 2 diabetes mellitus without complications E11.9 ; Neck pain M54.2 and Essential hypertension I10 [facility] [address], [place] [address] 1904 Jun, [facility] [address], [place] [address]- 2650 Jun, [facility] [address] [place] [address] 28974- 0651 10 Jun, 2016 GERD (gastroesophageal reflux disease) K21.9 and Type 2 diabetes mellitus without complications E11.9 [facility] [id number] [place] [address] 22886- 5637 10 Mar, 2016 Paresthesias in right hand R20.2 [facility] [address] [address]- 5915 Feb, Type 2 diabetes mellitus without complications E11.9 [facility] [id number] [place] [address] [id number] Feb, Encounter for dental examination Z01.20 [facility] [id number] [place] [address] 62479- 3972 Feb, Type 2 diabetes mellitus without complications E11.9 and Neck pain M54.2 [facility] [id number] [place] [address] 65560- 3552 02 Feb, 2016 Type 2 diabetes mellitus without complications E11.9 [facility] [id number] [place] [address] [id number] Jan, Dental examination Z01.20 [facility] [id number] [place] [address] 24672- 6180 Jan, [facility] [id number] [place] [address] 94914- 4261 Jan, [facility] [id number] [place] [address] [id number] Dec, Dental caries K02.9 [facility] [id number] [place] [address] 77837- 6956 Nov, [facility] [id number] [place] [address] [id number]- 0299 Nov, [facility] [id number] [place] [address] 28984- 3244 Oct, Type 2 diabetes mellitus without complications E11.9 ; Neck pain M54.2 and Essential hypertension I10 [facility] [address], [place] [address]- 5156 Oct, [facility] [address] [address] Oct, Dental examination Z01.20 [facility] [address], [place] [address]- 8586 Sep, [facility] [id number] [place] [address] 84415- 0275 Sep, [facility] [id number] [place] [address] 22792- 3667 Aug, Essential (primary) hypertension I10 [facility] [id number] [place] [address] 43062- 3253 Aug, [facility] [id number] [place] [address] 22655- 4089 Aug, [facility] [address] [place] [address] 07232- 0955 July, Essential (primary) hypertension I10 [facility] [id number] [place] [address] 47725- 8077 July, Essential (primary) hypertension I10 and Type 2 diabetes mellitus without complications E11.9 [facility] [address], [place] [address]- 3690 July, [facility] [address], [place] [address]- 3621 14 Jun, 2015 GERD (gastroesophageal reflux disease) K21.9 [facility] [id number] [place] [address] 26385- 7963 11 Jun, 2015 GERD (gastroesophageal reflux disease) K21.9 [facility] [address], [place] [address]- 4614 Jun, [facility] [id number] [place] [address] 87216- 8952 06 Jun, 2015 Neuropathy G62.9 [facility] [address] [place] [address] 18696- 4106 May, Essential (primary) hypertension I10 [facility] [address] [place] [address] 51119 -2445 23 May, 2015 Bronchitis J40 [facility] [id number] [place] [address] 80447- 1818 15 May, 2015 Type 2 diabetes mellitus without complications E11.9 and Essential (primary) hypertension I10 [facility] [id number] [place] [address] 81945- 4306 10 May, 2015 [facility] [id number] [place] [address] 53559- 2842 10 May, 2015 GERD (gastroesophageal reflux disease) K21.9 [facility] [id number] [place] [address] 10573- 4194 25 Apr, 2015 Other and unspecified hyperlipidemia 272.4 ; Unspecified essential hypertension 401.9 ; Type 2 diabetes mellitus without complications E11.9 ; Neck pain M54.2 and Paresthesias in right hand R20.2 [facility] [id number] [place] [address] 94029- 9921 11 Apr, 2015 [facility] [id number] [place] [address] 10261- 2215 Apr, Neuropathy G62.9 [facility] [id number] [place] [address] 81966- 3849 Mar, [facility] [id number] [place] [address] 12675- 3836 Feb, [facility] [id number] [place] [address] 32532- 7649 Jan, [facility] [id number] [place] [address] 92746- 7670 Dec, [facility] [address], [place] [address]- 8316 Dec, Type 2 diabetes mellitus without complications E11.9 ; Encounter for immunization Z23 and Neck pain M54.2 [facility] [address], [place] [address]- 4515 09 Dec, 2014 [facility] [address], [place] [address]- 7944 Nov, [facility] [id number] [place] [address] 41753- 9600 Nov, [facility] [id number] [place] [address] 27802- 5964 Oct, [facility] [id number] [place] [address] 28719- 5715 Oct, [facility] [id number] [place] [address] 29950- 2524 Sep, [facility] [address], [place] [address]- 1229 Sep, Coronary atherosclerosis of unspecified type of vessel, [place] or graft 414.00 ; Diabetes mellitus without mention of complication, type II or unspecified type, not stated as uncontrolled 250.00 ; Hyperlipidemia 272.4 and HTN (hypertension) 401.9 [facility] [address], [place] [address]- 0114 Aug, [facility] [address], [place] [address]- 8612 July, [facility] [address], [place] [address]- 4127 Jun, [facility] [address], [place] [address]- 2846 Jun, [facility] [id number], [place] [address]- 0983 May, [facility] [id number] [place] [address] [place] [address]- 4975 May, [facility] [place] [facility] [address] [id number] [place] [address]- 8691 May, [facility] [place] [facility] [address] [id number] [place] [address]- 7775 May, [facility] [place] [facility] [address] [id number] [place] [address]- 7695 Apr, 2014 [facility] [place] [facility] [address] [id number] [place] [address]- 2009 Apr, 2014 [facility] [place] [facility] [address] [id number] [place] [address]- 7214 Apr, 2014 [facility] [place] [facility] [address] [id number] [place] [address]- 4034 Apr, 2014 [facility] [place] [facility] [address] [id number] [place] [address]- 9614 Apr, [facility] [place] [facility] [address] [id number] [place] [address]- 6357 Apr, [facility] [place] [facility] [address] [id number] [place] [address]- 9439 Apr, [facility] [place] [facility] [address] [id number] [place] [address]- 1487 Apr, [facility] [place] [facility] [address] [id number] [place] [address]- 7086 Mar, [facility] [place] [facility] [address] [id number] [address]- 0458 Mar, [facility] [place] [facility] [address] [id number] [place] [address]- 1637 Mar, [facility] [place] [facility] [address] [id number] [place] [address]- 1413 Mar, [facility] [place] [facility] [address] [id number] [place] [address]- 3447 Mar, [facility] [place] [facility] [address] [id number] [place] [address]- 4947 Mar, [facility] [place] [facility] [address] [id number] [place] [address]- 7957 Mar, [facility] [place] [facility] [address] [id number] [place] [address]- 8418 Mar, [facility] [place] [facility] [address] [id number] [place] [address]- 4468 Feb, [facility] [place] [facility] [address] [id number] [place] [address]- 8043 Feb, [facility] [place] [facility] [address] [id number] [place] [address]- 6882 Feb, [facility] [place] [facility] [address] [id number] [place] [address]- 2813 Feb, [facility] [place] [facility] [address] [id number] [place] [address]- 9457 Feb, [facility] [place] [facility] [address] [id number] [place] [address]- 3983 Feb, [facility] [place] [facility] [address] [id number] [place] [address]- 1582 Feb, [facility] [place] [facility] [address] [id number] [place] [address]- 1935 Feb, [facility] [place] [facility] [address] [id number] [place] [address]- 5035 Feb, [facility] [place] [facility] [address] [id number] [place] [address]- 8413 Feb, [facility] [place] [facility] [address] [id number] [place] [address]- 7275 Jan, [facility] [place] [facility] [address] [id number] [place] [address]- 1487 Jan, [facility] [place] [facility] [address] [id number] [place] [address]- 4149 Dec, [facility] [place] [facility] [address] [id number] [place] [address]- 1644 Dec, [facility] [place] [facility] [address] [id number] [place] [address]- 5847 Dec, [facility] [place] [facility] [address] [id number] [place] [address]- 2998 Dec, [facility] [place] [facility] [address] [id number] [place] [address]- 6838 Nov, [facility] [place] [facility] [address] [id number] [place] [address]- 4050 Nov, [facility] [place] [facility] [address] [id number] [place] [address]- 4422 Nov, [facility] [place] [facility] [address] [id number] [place] [address]- 1800 Nov, [facility] [place] [facility] [address] [id number] [place] [address]- 2770 Oct, [facility] [place] [facility] [address] [id number] [place] [address]- 7036 Oct, [facility] [place] [facility] [address] [id number] [place] [address]- 7707 Oct, [facility] [place] [facility] [address] [id number] [place] [address]- 8050 Oct, [facility] [place] [facility] [address] [id number] [place] [address]- 4035 Oct, [facility] [place] [facility] [address] [id number] [place] [address]- 0204 Sep, [facility] [place] [facility] [address] [id number] [place] [address]- 7868 Sep, [facility] [place] [facility] [address] [id number] [place] [address]- 7587 Sep, [facility] [place] [facility] [address] [id number] [place] [address]- 3254 Sep, [facility] [place] [facility] [address] [id number] [place] [address]- 5260 Sep, [facility] [place] [facility] [address] [id number] [place] [address]- 1946 Sep, [facility] [place] [facility] [address] [id number] [place] [address]- 8429 Aug, [facility] [place] [facility] [address] [id number] [place] [address]- 3018 Aug, [facility] [place] [facility] [address] [id number] [place] [address]- 1060 Aug, [facility] [place] [facility] [address] [id number] [place] [address]- 8033 Aug, [facility] [place] [facility] [address] [id number] [place] [address]- 4860 Aug, [facility] [place] [facility] [address] [id number] [place] [address]- 0331 Aug, [facility] [place] [facility] [address] [id number] [place] [address]- 6614 July, [facility] [place] [facility] [address] [id number] [place] [address]- 6189 July, [facility] [place] [facility] [address] [id number] [place] [address]- 7278 Jun, [facility] [place] [facility] [address] [id number] [place] [address]- 3065 Jun, [facility] [place] [facility] [address] [id number] [place] [address]- 0948 May, [facility] [place] [facility] [address] [id number] [place] [address]- 8772 May, [facility] [place] [facility] [address] [id number] [place] [address]- 6392 May, [facility] [place] [facility] [address] [facility] [id number] [place] [address]- 9473 May, [facility] [place] [facility] [address] [facility] [id number] [place] [address]- 6313 Apr, [facility] [place] [facility] [address] [facility] [id number] [place] [address]- 7826 Apr, [facility] [place] [facility] [address] [id number] [place] [address]- 8169 Apr, 2013 [facility] [place] [facility] [address] [facility] [id number] [place] [address]- 3039 Apr, [facility] [place] [facility] [address] [facility] [id number] [place] [address]- 2730 Apr, [facility] [place] [facility] [address] [facility] [id number] [place] [address]- 3459 Apr, [facility] [place] [facility] [address] [facility] [id number] [place] [address]- 2093 Feb, [facility] [place] [facility] [address] [facility] [id number] [place] [address]- 5572 Feb, [facility] [place] [facility] [address] [facility] [id number] [place] [address]- 2222 Feb, [facility] [place] [facility] [address] [facility] [id number] [place] [address]- 0243 Feb, [facility] [place] [facility] [address] [facility] [id number], [place] [address]- 2098 Jan, [facility] [place] [facility] [address] [facility] [id number] [place] [address]- 6154 Jan, [facility] [place] [facility] [address] [facility] [id number] [place] [address]- 5598 Dec, [facility] [place] [facility] [address] [facility] [id number] [place] [address]- 2061 Dec, [facility] [place] [facility] [address] [id number] [place] [address]- 2546 Dec, [facility] [address] [id number] [place] [address]- 6493 Dec, [facility] [address] [id number] [place] [address]- 2546 Oct, [facility] [address] [id number] [place] [address] Oct, [facility] [address] [id number] [place] [address] Oct, [facility] [address] [id number] [place] [address]- 2546 Oct, [facility] [address] [id number] [place] [address] Sep, [facility] [address] [id number] [place] [address] Sep, [facility] [address] [id number] [place] [address] Aug, [facility] [address] [id number] [place] [address] Aug, [facility] [address] [facility] [id number] [place] [address] Aug, [facility] [address] [id number] [place] [address] Aug, [facility] [address] [id number] [place] [address] July, [facility] [address] [id number] [place] [address] 16 Jun, 2012 [facility] [place] [facility] [address] [id number] [place] [address] May, [facility] [address] [id number] [place] [address] May, [facility] [address] [id number] [place] [address] 05 May, 2012 [facility] [place] [facility] [address] [id number] [place] [address] May, [facility] [place] [facility] [address] [id number] [place] [address] May, [facility] [place] [facility] [address] [id number] [place] [address] Apr, [facility] [place] [facility] [address] [id number] [place] [address] Apr, [facility] [place] [facility] [address] [id number] [place] [address] Apr, [facility] [place] [facility] [address] [id number] [place] [address] Apr, [facility] [place] [facility] [address] [id number] [place] [address] Mar, [facility] [place] [facility] [address] [id number] [place] [address] Mar, [facility] [place] [facility] [address] [id number] [place] [address] Mar, [facility] [place] [facility] [address] [id number], [place] [address] Mar, [facility] [place] [facility] [address] [id number], [place] [address] Jan, [facility] [place] [facility] [address] [id number] [place] [address] 16 Jan, 2012 [facility] [place] [facility] [address] [id number] [place] [address] 15 Jan, 2012 [facility] [place] [facility] [address] [id number] [place] [address] 15 Jan, 2012 [facility] [place] [facility] [id number] [address] Jan, [facility] [id number], [place] [address] Jan, [facility] [id number] [address] Jan, [facility] [id number] [address] Jan, [facility] [id number], [place] [address] Jan, [facility] [id number] [place] [id number] Jan, [facility] [id number], [place] [address] Dec, [facility] [id number] [place] [address] Dec, [facility] [id number], [place] [address] Dec, [facility] [id number], [place] [address] Nov, [facility] [id number], [place] [address] Nov, [facility] [id number], [place] [address] Nov, [facility] [id number], [place] [address] Nov, [facility] [facility] [id number], [place] [address] Oct, [facility] [address], [place] [address] Oct, IMMUNIZATIONS No Known Immunizations SOCIAL HISTORY Never Assessed REASON FOR VISIT PLAN OF CARE VITAL SIGNS MEDICATIONS Medication Instructions Dosage Frequency Start Date End Date Duration Status Trulicity 0.75 MG/0.5ML Subcutaneous once weekly as directed Dec, Active RESULTS No Results PROCEDURES No Known [...]
--- OUTSIDE RECORDS SUMMARY | 2018-03-09 09:18 | XMS REPORT ---
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 094016252 Problem Type 2 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, unspecified E11.40 Active 45332193 Problem Neck pain M54.2 Active 25735310 Problem Type 2 diabetes mellitus without complications E11.9 Active 164017380 Problem GERD (gastroesophageal reflux disease) K21.9 Active 440043462 Problem Essential hypertension I10 Active 56709215 ALLERGIES No Information ENCOUNTERS Encounter Location Date Diagnosis [place] [id number] [place] [address] 71696- 6844 Dec, [place] [id number] [place] [address] 24158- 7204 Dec, [place] [id number] [place] [address] 06207- 1398 Dec, Type 2 diabetes mellitus without complications E11.9 [facility] [id number] [place] [address] 12905- 4842 Dec, [place] [id number] [place] [address] 62321- 0104 Oct, [facility] [id number] [place] [address] 80003- 8341 Sep, [place] [address], [place] [address] 2409 Aug, [place] [id number] [place] [address] 83964- 2328 Aug, Exposure to hepatitis C Z20.5 and Routine adult health maintenance Z00.00 [place] [address], [place] [address] 8291 11 Aug, 2017 Exposure to hepatitis C Z20.5 [place] [address], [place] [address] 2657 11 Aug, 2017 Medicare annual wellness visit, initial Z00.00 ; Coronary artery disease involving enterprise coronary artery of enterprise heart without angina pectoris I25.10 ; Hyperlipidemia, unspecified hyperlipidemia type E78.5 ; Essential hypertension I10 ; GERD (gastroesophageal reflux disease) K21.9 ; Routine adult health maintenance Z00.00 ; Encounter for immunization Z23 ; Type 2 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, unspecified E11.40 and detention 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 [place] [id number] [place] [address] 48854- 6540 30 Jul, 2017 Type 2 diabetes mellitus without complications E11.9 and Type 2 diabetes mellitus without complications E11.9 [place] [address], [place] [address] 5870 July, [place] [address], [place] [address] 1129 July, [place] [address], [place] [address] 8377 Mar, Type 2 diabetes mellitus without complications E11.9 [place] [address], [place] [address] 7659 Mar, [place] [id number] [place] [address] 62457- 6111 Feb, Type 2 diabetes mellitus without complications E11.9 [place] [id number] [place] [address] 42341- 2388 Jan, Type 2 diabetes mellitus without complications E11.9 [facility] [address] [place] [address] 19030- 8472 Jan, Type 2 diabetes mellitus without complications E11.9 [facility] [address], [place] [address]- 5674 Nov, [facility] [id number] [place] [address] 34246- 1025 Oct, Type 2 diabetes mellitus without complications E11.9 [facility] [id number] [place] [address] 98843- 1427 Oct, Type 2 diabetes mellitus without complications E11.9 ; Essential hypertension I10 and Neck pain M54.2 [facility] [id number] [place] [address] 31037- 8990 Sep, [place] [id number] [place] [address] 33328- 6626 Aug, Type 2 diabetes mellitus without complications E11.9 [facility] [id number] [place] [address] 74567- 0959 Jun, Type 2 diabetes mellitus without complications E11.9 ; Neck pain M54.2 and Essential hypertension I10 [facility] [id number] [place] [address] 40109- 3216 17 Jun, 2016 [facility] [id number] [place] [address] 26754- 8351 Jun, [facility] [id number] [place] [address] 69336- 5565 Jun, GERD (gastroesophageal reflux disease) K21.9 and Type 2 diabetes mellitus without complications E11.9 [facility] [id number] [place] [address] 09709- 7871 Mar, Paresthesias in right hand R20.2 [facility] [id number] [place] [address] 78630- 7265 Feb, Type 2 diabetes mellitus without complications E11.9 [facility] [address] [id number] [id number] Feb, Encounter for dental examination Z01.20 [facility] [id number] [place] [address] 81948191- 2200 Feb, Type 2 diabetes mellitus without complications E11.9 and Neck pain M54.2 [facility] [id number] [place] [address] 88205- 4539 Feb, Type 2 diabetes mellitus without complications E11.9 [facility] [id number] [place] [address] [id number] Jan, Dental examination Z01.20 [facility] [id number] [place] [address] 22295- 2647 Jan, [facility] [id number] [place] [address] 58149- 2253 Jan, [facility] [id number] [place] [address] [id number] Dec, Dental caries K02.9 [facility] [id number] [place] [address] 93029- 2338 Nov, [facility] [id number] [place] [address] 22691- 5452 Nov, [facility] [id number] [place] [address] 73174- 0025 Oct, Type 2 diabetes mellitus without complications E11.9 ; Neck pain M54.2 and Essential hypertension I10 [facility] [id number] [place] [address] 78951- 9665 Oct, [facility] [id number] [place] [address] [id number] Oct, Dental examination Z01.20 [facility] [id number] [place] [address] 54218- 3366 Sep, [facility] [address] [place] [address]- 9992 Sep, [facility] [id number] [place] [address] 86326- 3714 Aug, Essential (primary) hypertension I10 [facility] [id number] [place] [address] 93580- 1626 Aug, [facility] [id number] [place] [address] 88230- 6198 Aug, [facility] [id number] [place] [address] 68856- 2795 July, Essential (primary) hypertension I10 [facility] [id number] [place] [address] 16310- 5248 July, Essential (primary) hypertension I10 and Type 2 diabetes mellitus without complications E11.9 [facility] [id number] [place] [address] 54915- 4112 July, [facility] [id number] [place] [address] 01471- 6566 Jun, GERD (gastroesophageal reflux disease) K21.9 [facility] [id number] [place] [address] 50905- 8243 Jun, GERD (gastroesophageal reflux disease) K21.9 [facility] [id number] [place] [address] 98163- 4263 Jun, [facility] [id number] [place] [address] 29812- 2020 Jun, Neuropathy G62.9 [facility] [id number] [place] [address] 55379- 2568 May, Essential (primary) hypertension I10 [facility] [address], [place] [address]67 May, Bronchitis J40 [facility] [id number] [place] [address] 98427- 9893 15 May, 2015 Type 2 diabetes mellitus without complications E11.9 and Essential (primary) hypertension I10 [facility] [id number] [place] [address] 34913- 9993 10 May, 2015 [facility] [address] 57052- 7706 10 May, 2015 GERD (gastroesophageal reflux disease) K21.9 [facility] [address] 35126- 1010 25 Apr, 2015 Other and unspecified hyperlipidemia 272.4 ; Unspecified essential hypertension 401.9 ; Type 2 diabetes mellitus without complications E11.9 ; Neck pain M54.2 and Paresthesias in right hand R20.2 [facility] [address] 00767- 1749 11 Apr, 2015 [facility] [address] 05822- 7011 Apr, Neuropathy G62.9 [facility] [address] 06360- 7066 Mar, [facility] [address] 00078- 2046 Feb, [facility] [address] 00893- 8668 Jan, [facility] [address] 79724- 7032 Dec, [facility] [address] 45180- 1667 Dec, Type 2 diabetes mellitus without complications E11.9 ; Encounter for immunization Z23 and Neck pain M54.2 [facility] [address] 66242- 8301 09 Dec, 2014 [facility] [address] 25564- 2163 14 Nov, 2014 [facility] [address] [place] [address]- 3204 Nov, [facility] [address], [place] [address]- 9213 Oct, [facility] [address], [place] [address]- 8356 Oct, [facility] [address], [place] [address]- 3428 Sep, [facility] [address], [place] [address]- 6004 Sep, Coronary atherosclerosis of unspecified type of vessel, enterprise or graft 414.00 ; Diabetes mellitus without mention of complication, type II or unspecified type, not stated as uncontrolled 250.00 ; Hyperlipidemia 272.4 and HTN (hypertension) 401.9 [facility] [address], [place] [address]- 5300 Aug, [facility] [address], [place] [address]- 4877 July, [facility] [address], [place] [address]- 2966 Jun, [facility] [address], [place] [address]- 8498 Jun, [facility] [address], [place] [address]- 7295 May, [facility] [id number] [address]- 4834 May, [facility] [id number], [place] [address]- 5345 May, [facility] [address], [place] [address]- 3796 May, [facility] [id number], [place] [address]- 0456 Apr, [facility] [address] [place] [address]- 4311 Apr, 2014 [facility] [place] [facility] [address] [id number] [place] [address]- 5276 Apr, 2014 [facility] [place] [facility] [address] [id number] [place] [address]- 6776 Apr, 2014 [facility] [place] [facility] [address] [id number] [place] [address]- 9296 Apr, 2014 [facility] [place] [facility] [address] [id number] [place] [address]- 0586 Apr, 2014 [facility] [place] [facility] [address] [id number] [place] [address]- 6031 Apr, 2014 [facility] [place] [facility] [address] [id number] [place] [address]- 9346 Apr, 2014 [facility] [place] [facility] [address] [id number] [place] [address]- 4969 Mar, [facility] [place] [facility] [address] [id number] [place] [address]- 4254 Mar, [facility] [place] [facility] [address] [facility] [id number] [place] [address]- 2918 Mar, [facility] [place] [facility] [address] [facility] [id number] [place] [address]- 9404 Mar, [facility] [place] [facility] [address] [id number] [place] [address]- 7217 Mar, [facility] [place] [facility] [address] [id number] [place] [address]- 6305 Mar, [facility] [place] [facility] [address] [id number] [place] [address]- 2648 Mar, [facility] [place] [facility] [address] [id number] [place] [address]- 5286 Mar, [facility] [place] [facility] [address] [id number] [place] [address]- 6308 Feb, [facility] [place] [facility] [address] [id number] [place] [address]- 6051 Feb, [facility] [place] [facility] [address] [id number] [place] [address]- 1090 Feb, [facility] [place] [facility] [address] [id number] [place] 5142 Feb, [facility] [place] [facility] [address] [id number] [place] [address]- 1461 Feb, [facility] [place] [facility] [address] [id number] [place] [address]- 9769 Feb, [facility] [place] [facility] [address] [id number] [place] [address]- 1832 Feb, [facility] [place] [facility] [address] [id number] [place] [address]- 5570 Feb, [facility] [place] [facility] [address] [id number] [place] [address]- 9361 Feb, [facility] [place] [facility] [address] [id number] [place] [address]- 7380 Feb, [facility] [place] [facility] [address] [id number] [place] [address]- 6428 Jan, [facility] [place] [facility] [address] [id number] [place] [address]- 4113 Jan, [facility] [place] [facility] [address] [id number] [place] [address]- 3020 Dec, [facility] [place] [facility] [address] [id number] [place] [address]- 3822 Dec, [facility] [place] [facility] [address] [id number] [place] [address]- 2029 Dec, [facility] [place] [facility] [address] [id number] [place] [address]- 3988 Dec, [facility] [place] [facility] [address] [id number] [place] [address]- 9394 15 Nov, 2013 [facility] [place] [facility] [address] [id number] [place] [address]- 8872 15 Nov, 2013 [facility] [place] [facility] [address] [id number] [place] [address]- 5885 Nov, [facility] [place] [facility] [address] [id number] [place] [address]- 2088 Nov, [facility] [place] [facility] [address] [id number] [place] [address]- 9342 Oct, [facility] [place] [facility] [address] [id number] [place] [address]- 8458 Oct, [facility] [place] [facility] [address] [id number] [place] [address]- 3687 Oct, [facility] [place] [facility] [address] [id number] [place] [address]- 0942 Oct, [facility] [place] [facility] [address] [id number] [place] [address]- 3267 Oct, [facility] [place] [facility] [address] [id number] [place] [address]- 9541 Sep, [facility] [place] [facility] [address] [id number] [place] [address]- 0196 Sep, [facility] [place] [facility] [address] [id number] [place] [address]- 1532 Sep, [facility] [place] [facility] [address] [id number], [place] [address]- 7140 Sep, [facility] [place] [facility] [address] [id number] [place] [address]- 5591 Sep, [facility] [place] [facility] [address] [id number] [place] [address]- 0923 Sep, [facility] [place] [facility] [address] [id number] [place] [address]- 5424 Aug, [facility] [place] [facility] [address] [id number] [place] [address]- 2061 Aug, [facility] [place] [facility] [address] [id number] [place] [address]- 4395 Aug, [facility] [place] [facility] [address] [id number] [place] [address]- 7421 Aug, [facility] [place] [facility] [address] [id number] [place] [address]- 2847 Aug, [facility] [place] [facility] [address] [id number] [place] [address]- 1565 Aug, [facility] [place] [facility] [address] [id number] [place] [address]- 8969 July, [facility] [place] [facility] [address] [id number] [place] [address]- 3915 July, [facility] [place] [facility] [address] [id number] [place] [address]- 6534 Jun, [facility] [place] [facility] [address] [id number] [place] [address]- 0533 Jun, [facility] [place] [facility] [address] [id number] [place] [address]- 1934 May, [facility] [place] [facility] [address] [id number] [place] [address]- 6766 May, [facility] [place] [facility] [address] [id number] [place] [address]- 5768 May, [facility] [place] [facility] [address] [id number] [place] [address]- 5142 May, [facility] [place] [facility] [address] [id number] [place] [address]- 9452 Apr, [facility] [place] [facility] [address] [id number] [place] [address]- 6229 Apr, [facility] [place] [facility] [address] [id number], [place] [address]- 2222 Apr, 2013 [facility] [address] [id number] [place] [address]- 6177 Apr, 2013 [facility] [address] [id number], [place] [address]- 3104 Apr, 2013 [facility] [address] [id number] [place] [address]- 9194 Apr, [facility] [address] [id number], [place] [address]- 2279 Feb, [facility] [address] [id number] [place] [address]- 8315 Feb, [facility] [address] [id number] [place] [address]- 5676 Feb, [facility] [address] [id number], [place] [address]- 6489 Feb, [facility] [address] [id number], [place] [address]- 5698 Jan, [facility] [address] [facility] [id number] [place] [address]- 8547 Jan, [facility] [address] [facility] [id number], [place] [address]- 0366 Dec, [facility] [address] [id number], [place] [address]- 3884 Dec, [facility] [place] [facility] [address] [id number], [place] [address]- 6464 Dec, [facility] [place] [facility] [address] [id number], [place] [address]- 6285 Dec, [facility] [place] [facility] [address] [id number], [place] [address]- 5799 Oct, [facility] [address] [id number] [id number] Oct, [facility] [place] [facility] [address] [id number] [place] [id number] Oct, [facility] [address] [id number] [place] [address]- 5636 Oct, [facility] [address] [id number] [place] [address]- 0946 Sep, [facility] [address] [id number] [place] [address]- 1310 Sep, [facility] [address] [id number] [place] [address]- 9489 Aug, [facility] [address] [id number] [place] [address]- 8188 Aug, [facility] [address] [id number] [place] [address]- 4356 Aug, [facility] [address] [id number] [place] [address]- 8486 Aug, [facility] [address] [id number] [place] [address]- 2419 July, [facility] [address] [id number] [place] [address]- 9339 Jun, [facility] [address] [id number] [place] [address]- 0551 May, [facility] [address] [id number] [place] [address]- 5296 May, [facility] [address] [id number] [place] [address]- 3801 May, [facility] [address] [id number] [place] [address]- 6686 May, [facility] [address] [id number] [place] [address] May, [facility] [address] [id number] [place] [address] Apr, [facility] [address] [id number] [place] [address] Apr, [facility] [place] [facility] [address] [id number] [place] [address] Apr, [facility] [place] [facility] [address] [id number] [place] [address] Apr, [facility] [place] [facility] [address] [id number] [place] [address] Mar, [facility] [place] [facility] [address] [id number] [place] [address] Mar, [facility] [place] [facility] [address] [id number] [place] [address] Mar, [facility] [place] [facility] [address] [id number] [place] [address] Mar, [facility] [place] [facility] [address] [id number], [place] [address] Jan, [facility] [place] [facility] [address] [id number] [place] [address] Jan, [facility] [place] [facility] [address] [id number], [place] [address] Jan, [facility] [place] [facility] [address] [id number], [place] [address] Jan, [facility] [place] [facility] [address] [id number], [place] [address] Jan, [facility] [place] [facility] [address] [id number] [place] [address] Jan, [facility] [place] [facility] [address] [id number], [place] [address] Jan, [facility] [place] [facility] [address] [facility] [id number], [place] [address] Jan, [facility] [place] [facility] [address] [id number], [place] [address] Jan, [facility] [id number] [address] Jan, [facility] [id number] Dec, [facility] [id number] [address] [address] Dec, [facility] [id number] [address] Dec, [facility] [id number] [place] [id number] Nov, [facility] [id number] [place] [address] Nov, [facility] [id number] [place] [address] Nov, [facility] [id number], [place] [address] Nov, [facility] [id number], [place] [address] Oct, [facility] [address] [id number], [place] [address] Oct, IMMUNIZATIONS No Known Immunizations SOCIAL HISTORY Never Assessed REASON FOR VISIT refill PLAN OF CARE VITAL SIGNS MEDICATIONS Medication [...]
--- OUTSIDE RECORDS SUMMARY | 2018-03-09 09:19 | XMS REPORT ---
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 Active 286581946 Problem Type 2 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, unspecified E11.40 Active 21977139 Problem Neck pain M54.2 Active 49940654 Problem Type 2 diabetes mellitus without complications E11.9 Active 732619813 Problem GERD (gastroesophageal reflux disease) K21.9 Active 049716175 Problem Essential hypertension I10 Active 98105821 ALLERGIES No Information ENCOUNTERS Encounter Location Date Diagnosis [place] [id number] [address] Oct, [facility] [id number] [place] [address] 01666- 1802 Sep, [facility] [id number] [place] [address] 88641- 7920 Aug, [facility] [address] [address]- [address]105 Aug, Exposure to hepatitis C Z20.5 and Routine adult health maintenance Z00.00 [facility] [address] [id number] [place] [address] 07084- 6563 Aug, Exposure to hepatitis C Z20.5 [facility] [address] [address]- 1509 11 Aug, 2017 Medicare annual wellness visit, initial Z00.00 ; Coronary artery disease involving north fork 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 pectoris I25.10 ; Hyperlipidemia, unspecified hyperlipidemia type E78.5 ; Essential hypertension I10 ; GERD (gastroesophageal reflux disease) K21.9 ; Routine adult health maintenance Z00.00 ; Encounter for immunization Z23 ; Type 2 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, unspecified E11.40 and 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 [facility] [id number] [place] [address] 86005- 1824 30 Jul, 2017 Type 2 diabetes mellitus without complications E11.9 and Type 2 diabetes mellitus without complications E11.9 [facility] [address] [place] [id number] [place] [address] 43421- 0630 July, [facility] [id number] [place] [address] 67234- 4752 July, [facility] [id number] [place] [address] 57673- 5076 Mar, Type 2 diabetes mellitus without complications E11.9 [facility] [address], [place] [address]- 9881 Mar, [facility] [id number] [place] [address] 27219- 4544 Feb, Type 2 diabetes mellitus without complications E11.9 [facility] [address], [place] [address] 2313 Jan, Type 2 diabetes mellitus without complications E11.9 [facility] [id number] [place] [address] 11230- 0914 Jan, Type 2 diabetes mellitus without complications E11.9 [facility] [id number] 7026 Nov, [facility] [address], [place] [address]- 0614 Oct, Type 2 diabetes mellitus without complications E11.9 [facility] [id number] [place] [address] 48840- 0337 Oct, Type 2 diabetes mellitus without complications E11.9 ; Essential hypertension I10 and Neck pain M54.2 [facility] [address] [address] [id number] [place] [address] 72239- 4881 Sep, [facility] [address] [place] [id number] [place] [address] 91852- 3703 Aug, Type 2 diabetes mellitus without complications E11.9 [place] [address] [place] [id number] [place] [address] 11155- 7492 Jun, Type 2 diabetes mellitus without complications E11.9 ; Neck pain M54.2 and Essential hypertension I10 [place] [address] [place] [id number] [place] [address] 12110- 8618 17 Jun, 2016 [place] [address] [place] [id number] [place] [address] 46304- 8821 Jun, [place] [address] 02977- 6342 Jun, GERD (gastroesophageal reflux disease) K21.9 and Type 2 diabetes mellitus without complications E11.9 [place] [address] [place] [id number] [place] [address] 60047- 8859 Mar, Paresthesias in right hand R20.2 [place] [address] [place] [id number] [place] [address] 36630- 1876 Feb, Type 2 diabetes mellitus without complications E11.9 [facility] [id number] [place] [address] [id number] Feb, Encounter for dental examination Z01.20 [facility] [address] [place] [id number] [place] [address] 40152- 1157 09 Feb, 2016 Type 2 diabetes mellitus without complications E11.9 and Neck pain M54.2 [facility] [id number] [place] [address] 52033- 6467 Feb, Type 2 diabetes mellitus without complications E11.9 [facility] [address] [id number] [id number] Jan, Dental examination Z01.20 [facility] [id number] [place] [address] 98479- 2810 Jan, [facility] [address] [id number], [place] [address]- 6167 Jan, [facility] [id number] [place] [address] [id number] Dec, Dental caries K02.9 [facility] [id number] [place] [address] 60774- 0366 Nov, [facility] [address] [facility] [id number] [place] [address] 89863- 0884 Nov, [facility] [address] [place] [id number] [place] [address] 97679- 0271 Oct, Type 2 diabetes mellitus without complications E11.9 ; Neck pain M54.2 and Essential hypertension I10 [facility] [id number] [place] [address] 79833- 3101 Oct, [facility] [address] [place] [id number] [place] [address] [id number] Oct, Dental examination Z01.20 [facility] [address], [place] [address]- 6460 Sep, [facility] [address] [facility] [id number], [place] [address]- 2702 Sep, [facility] [address] [place] [address] 73432- 7513 Aug, Essential (primary) hypertension I10 [facility] [address] [facility] [id number] [place] [address] 58617- 8481 Aug, [facility] [address], [place] [address]- 2340 Aug, [facility] [address] [place] [id number] [place] [address] 52244- 3438 July, Essential (primary) hypertension I10 [facility] [address] [place] [id number] [place] [address] 01092- 4475 July, Essential (primary) hypertension I10 and Type 2 diabetes mellitus without complications E11.9 [facility] [id number] [place] [address] 31468- 8063 July, [facility] [address] [id number] [place] [address] 30882- 4316 Jun, GERD (gastroesophageal reflux disease) K21.9 [facility] [address] [place] [id number] [place] [address] 63011- 2878 Jun, GERD (gastroesophageal reflux disease) K21.9 [facility] [address] [id number] [place] [address] 62965- 2806 Jun, [facility] [address] [place] [id number] [place] [address] 37154- 5871 Jun, Neuropathy G62.9 [facility] [address] [place] [id number] [place] [address] 14911- 7139 May, Essential (primary) hypertension I10 [facility] [address], [place] [address] -8310 May, Bronchitis J40 [facility] [address] [place] [id number] [place] [address] 42551- 0094 May, Type 2 diabetes mellitus without complications E11.9 and Essential (primary) hypertension I10 [facility] [address] [address] [id number] [address]- 4870 May, [facility] [address] [place] [id number] [place] [address] 64816- 2159 May, GERD (gastroesophageal reflux disease) K21.9 [facility] [address], [place] [address]- 0741 Apr, Other and unspecified hyperlipidemia 272.4 ; Unspecified essential hypertension 401.9 ; Type 2 diabetes mellitus without complications E11.9 ; Neck pain M54.2 and Paresthesias in right hand R20.2 [facility] [address] [place] [id number] [place] [address] 32090- 3467 Apr, [facility] [address] [place] [id number] [place] [address] 94562- 1931 Apr, Neuropathy G62.9 [facility] [address] [place] [id number] [place] [address] 19651- 6054 Mar, [facility] [address] [place] [id number] [place] [address] 76065- 2475 Feb, [facility] [address] [place] [address] [id number] [place] [address] 90739- 0694 Jan, [facility] [address] [place] [id number] [place] [address] 28867- 1846 Dec, [facility] [address] [place] [address] [id number] [place] [address] 95170- 6904 Dec, Type 2 diabetes mellitus without complications E11.9 ; Encounter for immunization Z23 and Neck pain M54.2 [facility] [address] [place] [address] [id number] [place] [address] 95464- 7833 Dec, [facility] [address] [place] [address] [id number] [place] [address] 44665- 6260 Nov, [facility] [address] [place] [id number] [place] [address] 53095- 5144 Nov, [facility] [address] [place] [address] [id number] [place] [address] 95636- 0385 Oct, [facility] [address] [place] [id number] [place] [address] 93327- 0300 Oct, [facility] [address] [place] [id number] [place] [address] 36166- 8328 Sep, [facility] [address] [place] [address] [id number] [place] [address] 82993- 8895 Sep, Coronary atherosclerosis of unspecified type of vessel, north fork or graft 414.00 ; Diabetes mellitus without mention of complication, type II or unspecified type, not stated as uncontrolled 250.00 ; Hyperlipidemia 272.4 and HTN (hypertension) 401.9 [facility] [address], [place] [address]- 7498 Aug, [facility] [address] [id number] [place] [address] 01722- 8205 July, [facility] [address] [id number] [place] [address] 81405- 5008 Jun, [facility] [address] [place] [id number] [place] [address] 70797- 6456 Jun, [facility] [address] [place] [address] [id number] [place] [address] 38009- 8965 May, [facility] [address] [place] [id number] [place] [address] 70158- 7832 May, [facility] [address] [place] [address] 37353- 3177 May, [facility] [address] [place] [address] 49477- 3693 May, [facility] [address], [place] [address]- 0164 Apr, [facility] [address], [place] [address]- 8310 Apr, [facility] [address]- 6071 Apr, [facility] [address] [id number] [place] [address] 16310580- 1540 Apr, [facility] [address], [place] [address]- 0846 Apr, [facility] [id number] [place] [address] 82673- 3547 Apr, [facility] [address] [id number] [place] [address]- 7015 Apr, [facility] [place] [facility] [address] [id number] [place] [address]- 8477 Apr, [facility] [place] [facility] [address] [id number] [place] [address]- 0992 Mar, [facility] [place] [facility] [address] [id number] [place] [address]- 4780 Mar, [facility] [place] [facility] [address] [id number] [place] [address]- 3717 Mar, [facility] [place] [facility] [address] [id number] [place] [address]- 4110 Mar, [facility] [place] [facility] [address] [id number], [place] [address]- 6467 Mar, [facility] [place] [facility] [address] [id number] [place] [address]- 7615 Mar, [facility] [place] [facility] [address] [id number] [place] [address]- 5314 Mar, [facility] [place] [facility] [address] [facility] [id number] [place] [address]- 2249 Mar, [facility] [place] [facility] [address] [id number], [place] [address]- 7594 Feb, [facility] [place] [facility] [address] [id number], [place] [address]- 3504 Feb, [facility] [place] [facility] [address] [id number] [place] [address]- 9750 Feb, [facility] [place] [facility] [address] [id number] [place] [address]- 5223 Feb, [facility] [place] [facility] [address] [id number] [place] [address]- 0494 Feb, [facility] [place] [facility] [address] [id number] [place] 3192 Feb, [facility] [place] [facility] [address] [id number] [place] [address]- 2237 Feb, [facility] [place] [facility] [address] [id number] [place] 6466 Feb, [facility] [place] [facility] [address] [id number] [place] 3640 Feb, [facility] [place] [facility] [address] [id number] [place] 4991 Feb, [facility] [place] [facility] [address] [id number] [place] [address]- 2636 Jan, [facility] [place] [facility] [address] [id number] [place] [address]- 4336 Jan, [facility] [place] [facility] [address] [id number] [place] [address]- 3554 Dec, [facility] [place] [facility] [address] [id number] [place] [address]- 9548 Dec, [facility] [place] [facility] [address] [id number] [place] [address]- 8293 Dec, [facility] [place] [facility] [address] [id number] [place] [address]- 9011 Dec, [facility] [place] [facility] [address] [id number] [place] [address]- 8500 Nov, [facility] [place] [facility] [address] [id number] [place] [address]- 2071 Nov, [facility] [place] [facility] [address] [id number] [place] 2132 Nov, [facility] [place] [facility] [address] [id number] [place] [address]- 5282 Nov, [facility] [place] [facility] [address] [id number] [place] [address]- 5319 Oct, [facility] [place] [facility] [address] [id number] [place] [address]- 0411 Oct, [facility] [place] [facility] [address] [id number] [place] [address]- 5548 Oct, [facility] [place] [facility] [address] [id number] [place] [address]- 8385 Oct, [facility] [place] [facility] [address] [id number] [place] [address]- 6123 Oct, [facility] [place] [facility] [address] [id number] [place] [address]- 5551 Sep, [facility] [place] [facility] [address] [id number] [place] [address]- 5190 Sep, [facility] [place] [facility] [address] [id number] [place] [address]- 2286 Sep, [facility] [place] [facility] [address] [id number] [place] [address]- 0880 Sep, [facility] [place] [facility] [address] [id number] [place] [address]- 9822 Sep, [facility] [place] [facility] [address] [id number] [place] [address]- 4335 Sep, [facility] [place] [facility] [address] [id number], [place] [address]- 0919 Aug, [facility] [place] [facility] [address] [id number], [place] [address]- 5752 Aug, [facility] [place] [facility] [address] [id number] [place] [address]- 4074 Aug, [facility] [place] [facility] [address] [id number] [place] [address]- 7235 Aug, [facility] [place] [facility] [address] [id number] [place] [address]- 4054 Aug, [facility] [place] [facility] [address] [id number] [place] [address]- 2830 Aug, [facility] [place] [facility] [address] [id number] [place] [address]- 0299 July, [facility] [place] [facility] [address] [id number] [place] [address]- 7480 July, [facility] [place] [facility] [address] [id number] [place] [address]- 2728 Jun, [facility] [place] [facility] [address] [id number] [place] [address]- 5800 Jun, [facility] [place] [facility] [address] [id number] [place] [address]- 8312 May, [facility] [place] [facility] [address] [facility] [id number] [place] [address]- 3065 May, [facility] [place] [facility] [address] [facility] [id number] [place] [address]- 8860 May, [facility] [place] [facility] [address] [facility] [id number] [place] [address]- 3948 May, [facility] [place] [facility] [address] [id number] [place] [address]- 6365 Apr, [facility] [place] [facility] [address] [facility] [id number] [place] [address]- 4796 Apr, [facility] [place] [facility] [address] [facility] [id number] [place] [address]- 0779 Apr, [facility] [place] [facility] [address] [facility] [id number] [place] [address]- 7915 Apr, [facility] [place] [facility] [address] [id number] [place] [address]- 2439 Apr, [facility] [place] [facility] [address] [facility] [id number] [place] [address]- 7856 Apr, [facility] [place] [facility] [address] [facility] [id number] [place] [address]- 7933 Feb, [facility] [place] [facility] [address] [id number] [place] [address]- 2543 Feb, [facility] [place] [facility] [address] [id number] [place] [address]- 2546 Feb, [facility] [place] [facility] [address] [id number] [place] [address]- 2541 Feb, [facility] [place] [facility] [address] [id number] [place] [address]- 7754 Jan, [facility] [place] [facility] [address] [id number] [place] [address]- 6252 Jan, [facility] [place] [facility] [address] [id number] [place] [address]- 5808 Dec, [facility] [place] [facility] [address] [id number] [place] [address]- 5916 Dec, [facility] [place] [facility] [address] [id number], [place] [address]- 1306 Dec, [facility] [place] [facility] [address] [id number] [place] [address]- 6022 Dec, [facility] [place] [facility] [address] [id number], [place] [address]- 6916 Oct, [facility] [place] [facility] [address] [id number] [id number] Oct, [facility] [place] [facility] [address] [id number][place] [id number] Oct, [facility] [place] [facility] [address] [id number], [place] [address]- 2546 Oct, [facility] [place] [facility] [address] [id number], [place] [address]- 2546 Sep, [facility] [place] [facility] [address] [id number], [place] [address]- 2546 Sep, [facility] [place] [facility] [address] [id number], [place] [address]- 5074 Aug, [facility] [address] [id number] [place] [address]- 4265 Aug, [facility] [place] [facility] [address] [id number], [place] [address]- 8444 Aug, [facility] [address] [facility] [id number] [place] [address]- 9900 Aug, [facility] [place] [facility] [address] [id number] [place] [address]- 0465 July, [facility] [address] [id number] [place] [address]- 2945 Jun, [facility] [address] [facility] [id number] [place] [address]- 0679 May, [facility] [address] [facility] [id number], [place] [address]- 9143 May, [facility] [place] [facility] [address] [facility] [id number] [place] [address] May, [facility] [address] [facility] [id number] [place] [address] May, [facility] [place] [facility] [address] [facility] [id number] [place] [address] May, [facility] [address] [id number], [place] [address] Apr, [facility] [place] [facility] [address] [id number], [place] [address] Apr, [facility] [place] [facility] [address] [id number] [place] [address] Apr, [facility] [place] [facility] [address] [id number] [address] Apr, [facility] [place] [facility] [address] [facility] [id number][place] [address] Mar, [facility] [place] [facility] [address] [id number] [place] [address] Mar, [facility] [place] [facility] [address] [id number] [place] [address] Mar, [facility] [place] [facility] [address] [id number] [place] [address] Mar, [facility] [place] [facility] [address] [id number] [place] [address] Jan, [facility] [place] [facility] [address] [id number] [place] [address] Jan, [facility] [place] [facility] [address] [id number] [place] [address] Jan, [facility] [place] [facility] [address] [id number] [place] [address] Jan, [facility] [place] [facility] [address] [id number] [place] [address] Jan, [facility] [place] [facility] [address] [id number] [place] [address] Jan, [facility] [place] [facility] [address] [id number] [place] [address] Jan, [facility] [place] [facility] [address] [id number] [place] [address] Jan, [facility] [place] [facility] [address] [id number] [place] [address] Jan, [facility] [place] [facility] [address] [id number] [place] [address] Jan, [facility] [place] [facility] [address] [id number] [place] [address] Dec, [facility] [place] [facility] [address] [id number] [place] [address] Dec, [facility] [place] [facility] [address] [id number] [place] [address] Dec, [facility] [address] [facility] [id number] [place] [address] Nov, [facility] [address] [id number], [place] [address] Nov, [facility] [address] [id number], [place] [address] Nov, [facility] [address] [id number], [place] [address] Nov, [facility] [address] [facility] [id number], [place] [address] Oct, [facility] [address] [id number], [place] [address] Oct, IMMUNIZATIONS No Known Immunizations SOCIAL HISTORY Never Assessed REASON FOR VISIT PA Novolog PLAN OF CARE VITAL SIGNS MEDICATIONS Unknown [...]
--- OUTSIDE RECORDS SUMMARY | 2018-03-09 09:19 | XMS REPORT ---
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 Active 008802583 Problem Type 2 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, unspecified E11.40 Active 99604186 Problem Neck pain M54.2 Active 95515072 Problem Type 2 diabetes mellitus without complications E11.9 Active 045624678 Problem GERD (gastroesophageal reflux disease) K21.9 Active 325350804 Problem Essential hypertension I10 Active 84154144 ALLERGIES No Information ENCOUNTERS Encounter Location Date Diagnosis [place] [id number] [address] Oct, [facility] [id number] [place] [address] 84561- 2612 Sep, [facility] [id number] [place] [address] 26285- 0963 Aug, [facility] [address] [address]- 5620 Aug, Exposure to hepatitis C Z20.5 and Routine adult health maintenance Z00.00 [facility] [id number] [place] [address] 20888- 0140 Aug, Exposure to hepatitis C Z20.5 [facility] [address] 02[address]- 6911 11 Aug, 2017 Medicare annual wellness visit, initial Z00.00 ; Coronary artery disease involving [place] coronary artery of [place] heart without angina pectoris I25.10 ; Hyperlipidemia, unspecified hyperlipidemia type E78.5 ; Essential hypertension I10 ; GERD (gastroesophageal reflux disease) K21.9 ; Routine adult health maintenance Z00.00 ; Encounter for immunization Z23 ; Type 2 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, unspecified E11.40 and 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 [facility] [id number] [place] [address] 37329- 4440 30 Jul, 2017 Type 2 diabetes mellitus without complications E11.9 and Type 2 diabetes mellitus without complications E11.9 [facility] [id number] [place] [address] 66323- 0634 July, [facility] [id number] [place] [address] 51344- 3948 July, [facility] [id number] [place] [address] 65694- 8022 Mar, Type 2 diabetes mellitus without complications E11.9 [facility] [address], [place] [address] 9758 Mar, [facility] [id number] [place] [address] 80420- 2043 Feb, Type 2 diabetes mellitus without complications E11.9 [facility] [address], [place] [address]- 5718 Jan, Type 2 diabetes mellitus without complications E11.9 [facility] [id number] [place] [address] 74040- 3335 Jan, Type 2 diabetes mellitus without complications E11.9 [facility] [id number] [address] Nov, [facility] [address], [place] [address]- 0700 Oct, Type 2 diabetes mellitus without complications E11.9 [facility] [id number] [place] [address] 13183- 0978 Oct, Type 2 diabetes mellitus without complications E11.9 ; Essential hypertension I10 and Neck pain M54.2 [facility] [id number] [place] [address] 45205- 1289 Sep, [facility] [id number] [place] [address] 97262- 1114 Aug, Type 2 diabetes mellitus without complications E11.9 [place] [address] [address] [id number] [place] [address] 96987- 1977 Jun, Type 2 diabetes mellitus without complications E11.9 ; Neck pain M54.2 and Essential hypertension I10 [place] [address] [id number] [place] [address] 72916- 7643 17 Jun, 2016 [place] [address] [place] [id number] [place] [address] 11501- 9578 Jun, [place] [address] 13288- 9584 Jun, GERD (gastroesophageal reflux disease) K21.9 and Type 2 diabetes mellitus without complications E11.9 [place] [address] [place] [id number] [place] [address] 35172- 1486 Mar, Paresthesias in right hand R20.2 [place] [address] [place] [id number] [place] [address] 32415- 0608 Feb, Type 2 diabetes mellitus without complications E11.9 [facility] [facility] [id number] [place] [address] [id number] Feb, Encounter for dental examination Z01.20 [facility] [id number] [place] [address] 51715- 5319 09 Feb, 2016 Type 2 diabetes mellitus without complications E11.9 and Neck pain M54.2 [facility] [id number] [place] [address] 69786- 8304 Feb, Type 2 diabetes mellitus without complications E11.9 [facility] [facility] [address] [id number] [id number] Jan, Dental examination Z01.20 [facility] [id number] [place] [address] 50078- 1949 Jan, [facility] [address] [id number], [place] [address]- 1150 Jan, [facility] [id number] [place] [address] [id number] Dec, Dental caries K02.9 [facility] [address] [id number] [place] [address] 50040- 2384 Nov, [facility] [address] [facility] [id number] [place] [address] 60819- 5530 Nov, [facility] [address] [id number] [place] [address] 65860- 6022 Oct, Type 2 diabetes mellitus without complications E11.9 ; Neck pain M54.2 and Essential hypertension I10 [facility] [id number] [place] [address] 77608- 0912 Oct, [facility] [address] [place] [id number] [place] [address] [id number] Oct, Dental examination Z01.20 [facility] [address], [place] [address]- 7623 Sep, [facility] [address] [facility] [id number], [place] [address]- 6397 Sep, [facility] [id number] [place] [address] 42241- 4552 Aug, Essential (primary) hypertension I10 [facility] [address] [facility] [id number] [place] [address] 69310- 6509 Aug, [facility] [address], [place] [address]- 7707 Aug, [facility] [address] [id number] [place] [address] 01929- 2444 July, Essential (primary) hypertension I10 [facility] [id number] [place] [address] 40831- 0635 July, Essential (primary) hypertension I10 and Type 2 diabetes mellitus without complications E11.9 [facility] [id number] [place] [address] 09005- 5536 July, [facility] [id number] [place] [address] 38345- 9704 Jun, GERD (gastroesophageal reflux disease) K21.9 [facility] [id number] [place] [address] 05937- 2425 Jun, GERD (gastroesophageal reflux disease) K21.9 [facility] [id number] [place] [address] 72498- 4547 Jun, [facility] [id number] [place] [address] 55286- 8705 Jun, Neuropathy G62.9 [facility] [address] [address] [id number] [place] [address] 31661- 7573 May, Essential (primary) hypertension I10 [facility] [address], [place] [address] -[address]64 May, Bronchitis J40 [facility] [address] [place] [id number] [place] [address] 15058- 3860 May, Type 2 diabetes mellitus without complications E11.9 and Essential (primary) hypertension I10 [facility] [address] [id number] [address]- 7398 May, [facility] [id number] [place] [address] 31522- 3920 May, GERD (gastroesophageal reflux disease) K21.9 [facility] [address], [place] [address]- 4332 Apr, Other and unspecified hyperlipidemia 272.4 ; Unspecified essential hypertension 401.9 ; Type 2 diabetes mellitus without complications E11.9 ; Neck pain M54.2 and Paresthesias in right hand R20.2 [facility] [address] [place] [id number] [place] [address] 24313- 5808 Apr, [facility] [address] [id number] [place] [address] 43876- 9326 Apr, Neuropathy G62.9 [facility] [id number] [place] [address] 60234- 3005 Mar, [facility] [id number] [place] [address] 78049- 1914 Feb, [facility] [id number] [place] [address] 01043- 1106 Jan, [facility] [id number] [place] [address] 79398- 4043 Dec, [facility] [id number] [place] [address] 62845- 7321 Dec, Type 2 diabetes mellitus without complications E11.9 ; Encounter for immunization Z23 and Neck pain M54.2 [facility] [id number] [place] [address] 54166- 0770 Dec, [facility] [id number] [place] [address] 66486- 5557 Nov, [facility] [id number] [place] [address] 48810- 3538 Nov, [facility] [id number] [place] [address] 87516- 3268 Oct, [facility] [id number] [place] [address] 20107- 3817 Oct, [facility] [id number] [place] [address] 47123- 3777 Sep, [facility] [id number] [place] [address] 66794- 9327 Sep, Coronary atherosclerosis of unspecified type of vessel, [place] or graft 414.00 ; Diabetes mellitus without mention of complication, type II or unspecified type, not stated as uncontrolled 250.00 ; Hyperlipidemia 272.4 and HTN (hypertension) 401.9 [facility] [address], [place] [address]- 7472 Aug, [facility] [id number] [place] [address] 76684- 1829 July, [facility] [id number] [place] [address] 52114- 3954 Jun, [facility] [id number] [place] [address] 80796- 2779 Jun, [facility] [address] [id number] [place] [address] 82796- 8875 May, [facility] [id number] [place] [address] 99722- 9583 May, [facility] [id number] [place] [address] 71924- 6012 May, [facility] [id number] [place] [address] 13650- 2111 May, [facility] [address], [place] [address]- 7200 Apr, [facility] [address], [place] [address]- 6743 Apr, [facility] [address]- 5815 Apr, [facility] [id number] [place] [address] 54857140- 0938 Apr, [facility] [address], [place] [address]- 4116 Apr, [facility] [id number] [place] [address] 14147- 0993 Apr, [facility] [address] [id number] [place] [address]- 7316 Apr, [facility] [place] [facility] [address] [id number] [place] [address]- 9206 Apr, [facility] [place] [facility] [address] [id number] [place] [address]- 4804 Mar, [facility] [place] [facility] [address] [id number] [place] [address]- 8782 Mar, [facility] [place] [facility] [address] [id number] [place] [address]- 8347 Mar, [facility] [place] [facility] [address] [id number] [place] [address]- 0198 Mar, [facility] [place] [facility] [address] [id number], [place] [address]- 0456 Mar, [facility] [place] [facility] [address] [id number] [place] [address]- 2090 Mar, [facility] [place] [facility] [address] [id number] [place] [address]- 9176 Mar, [facility] [place] [facility] [address] [facility] [id number] [place] [address]- 6803 Mar, [facility] [place] [facility] [address] [id number], [place] [address]- 9244 Feb, [facility] [place] [facility] [address] [id number], [place] [address]- 6512 Feb, [facility] [place] [facility] [address] [id number] [place] [address]- 0848 Feb, [facility] [place] [facility] [address] [id number] [place] [address]- 6458 Feb, [facility] [place] [facility] [address] [id number] [place] [address]- 5484 Feb, [facility] [place] [facility] [address] [id number] [place] 8407 Feb, [facility] [place] [facility] [address] [id number] [place] [address]- 8389 Feb, [facility] [place] [facility] [address] [id number] [place] 1896 Feb, [facility] [place] [facility] [address] [id number] [place] 8454 Feb, [facility] [place] [facility] [address] [id number] [place] 0102 Feb, [facility] [place] [facility] [address] [id number] [place] [address]- 5027 Jan, [facility] [place] [facility] [address] [id number] [place] [address]- 6212 Jan, [facility] [place] [facility] [address] [id number] [place] [address]- 4725 Dec, [facility] [place] [facility] [address] [id number] [place] [address]- 6042 Dec, [facility] [place] [facility] [address] [id number] [place] [address]- 0197 Dec, [facility] [place] [facility] [address] [id number] [place] [address]- 3795 Dec, [facility] [place] [facility] [address] [id number] [place] [address]- 7690 Nov, [facility] [place] [facility] [address] [id number] [place] [address]- 6839 Nov, [facility] [place] [facility] [address] [id number] [place] 5753 Nov, [facility] [place] [facility] [address] [id number] [place] [address]- 1935 Nov, [facility] [place] [facility] [address] [id number] [place] [address]- 2256 Oct, [facility] [place] [facility] [address] [id number] [place] [address]- 9285 Oct, [facility] [place] [facility] [address] [id number] [place] [address]- 8085 Oct, [facility] [place] [facility] [address] [id number] [place] [address]- 4644 Oct, [facility] [place] [facility] [address] [id number] [place] [address]- 8971 Oct, [facility] [place] [facility] [address] [id number] [place] [address]- 7419 Sep, [facility] [place] [facility] [address] [id number] [place] [address]- 7577 Sep, [facility] [place] [facility] [address] [id number] [place] [address]- 6633 Sep, [facility] [place] [facility] [address] [id number] [place] [address]- 6389 Sep, [facility] [place] [facility] [address] [id number] [place] [address]- 6789 Sep, [facility] [place] [facility] [address] [id number] [place] [address]- 3590 Sep, [facility] [place] [facility] [address] [id number], [place] [address]- 4692 Aug, [facility] [place] [facility] [address] [id number], [place] [address]- 6193 Aug, [facility] [place] [facility] [address] [id number] [place] [address]- 3533 Aug, [facility] [place] [facility] [address] [id number] [place] [address]- 3338 Aug, [facility] [place] [facility] [address] [id number] [place] [address]- 2795 Aug, [facility] [place] [facility] [address] [id number] [place] [address]- 0995 Aug, [facility] [place] [facility] [address] [id number] [place] [address]- 3310 July, [facility] [place] [facility] [address] [id number] [place] [address]- 9410 July, [facility] [place] [facility] [address] [id number] [place] [address]- 3701 Jun, [facility] [place] [facility] [address] [id number] [place] [address]- 4644 Jun, [facility] [place] [facility] [address] [id number] [place] [address]- 0112 May, [facility] [place] [facility] [address] [facility] [id number] [place] [address]- 4780 May, [facility] [place] [facility] [address] [facility] [id number] [place] [address]- 5327 May, [facility] [place] [facility] [address] [facility] [id number] [place] [address]- 6495 May, [facility] [place] [facility] [address] [id number] [place] [address]- 2109 Apr, [facility] [place] [facility] [address] [facility] [id number] [place] [address]- 5356 Apr, [facility] [place] [facility] [address] [facility] [id number] [place] [address]- 3530 Apr, [facility] [place] [facility] [address] [facility] [id number] [place] [address]- 2045 Apr, [facility] [place] [facility] [address] [id number] [place] [address]- 2250 Apr, [facility] [place] [facility] [address] [facility] [id number] [place] [address]- 3166 Apr, [facility] [place] [facility] [address] [facility] [id number] [place] [address]- 7091 Feb, [facility] [place] [facility] [address] [id number] [place] [address]- 2545 Feb, [facility] [place] [facility] [address] [id number] [place] [address]- 2546 Feb, [facility] [place] [facility] [address] [id number] [place] [address]- 2544 Feb, [facility] [place] [facility] [address] [id number] [place] [address]- 7100 Jan, [facility] [place] [facility] [address] [id number] [place] [address]- 7039 Jan, [facility] [place] [facility] [address] [id number] [place] [address]- 3068 Dec, [facility] [place] [facility] [address] [id number] [place] [address]- 7620 Dec, [facility] [place] [facility] [address] [id number], [place] [address]- 0691 Dec, [facility] [place] [facility] [address] [id number] [place] [address]- 7518 Dec, [facility] [place] [facility] [address] [id number], [place] [address]- 4641 Oct, [facility] [place] [facility] [address] [id number][place] [address] Oct, [facility] [place] [facility] [address] [id number][place] [address] Oct, [facility] [place] [facility] [address] [id number], [place] [address]- 2546 Oct, [facility] [place] [facility] [address] [id number], [place] [address]- 2546 Sep, [facility] [place] [facility] [address] [id number], [place] [address]- 2546 Sep, [facility] [place] [facility] [address] [id number], [place] [address]- 3022 Aug, [facility] [address] [id number] [place] [address]- 8376 Aug, [facility] [place] [facility] [address] [id number], [place] [address]- 4739 Aug, [facility] [address] [facility] [id number] [place] [address]- 3210 Aug, [facility] [place] [facility] [address] [id number] [place] [address]- 9067 July, [facility] [address] [id number] [place] [address]- 1524 Jun, [facility] [address] [facility] [id number] [place] [address]- 1698 May, [facility] [address] [facility] [id number], [place] [address]- 8715 May, [facility] [place] [facility] [address] [facility] [id number] [place] [address]- 5638 May, [facility] [address] [facility] [id number] [place] [address]- 5108 May, [facility] [place] [facility] [address] [facility] [id number] [place] [address]- 6297 May, [facility] [address] [id number], [place] [address] Apr, [facility] [place] [facility] [address] [id number], [place] [address] Apr, [facility] [place] [facility] [address] [id number] [place] [address] Apr, [facility] [place] [facility] [address] [id number][place] [address] Apr, [facility] [place] [facility] [address] [facility] [id number][place] Mar, [facility] [place] [facility] [address] [id number] [place] [address] Mar, [facility] [place] [facility] [address] [id number] [place] [address] Mar, [facility] [place] [facility] [address] [id number] [place] [address] Mar, [facility] [place] [facility] [address] [id number] [place] [address] Jan, [facility] [place] [facility] [address] [id number] [place] [address] Jan, [facility] [place] [facility] [address] [id number] [place] [address] Jan, [facility] [place] [facility] [address] [id number] [place] [address] Jan, [facility] [place] [facility] [address] [id number] [place] [address] Jan, [facility] [place] [facility] [address] [id number] [place] [address] Jan, [facility] [place] [facility] [address] [id number] [place] [address] Jan, [facility] [place] [facility] [address] [id number] [place] [address] Jan, [facility] [place] [facility] [address] [id number] [place] [address] Jan, [facility] [place] [facility] [address] [id number] [place] [address] Jan, [facility] [place] [facility] [address] [id number] [place] [address] Dec, [facility] [place] [facility] [address] [id number] [place] [address] Dec, [facility] [place] [facility] [address] [id number] [place] [address] Dec, [facility] [address] [facility] [id number] [place] [address] Nov, [facility] [address] [facility] [id number], [place] [address] Nov, [facility] [address] [facility] [id number], [place] [address] Nov, [facility] [address] [facility] [id number], [place] [address] Nov, [facility] [address] [facility] [id number], [place] [address] Oct, [facility] [address] [facility] [id number], [place] [address] Oct, IMMUNIZATIONS No Known Immunizations SOCIAL HISTORY Never Assessed REASON FOR VISIT Hydrocodone 10/07 PLAN OF CARE VITAL SIGNS MEDICATIONS Medication Instructions Dosage Frequency Start Date End Date Duration Status Hydrocodone-Acetaminophen 10-325 MG Orally every 8 hrs 1 tablet as needed 8h Sep, 28 days Active RESULTS No Results PROCEDURES [...]
--- OUTSIDE RECORDS SUMMARY | 2018-03-09 09:20 | XMS REPORT ---
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 Active 052591075 Problem Type 2 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, unspecified E11.40 Active 96392064 Problem Neck pain M54.2 Active 60560812 Problem Type 2 diabetes mellitus without complications E11.9 Active 617206864 Problem GERD (gastroesophageal reflux disease) K21.9 Active 289182784 Problem Essential hypertension I10 Active 43832315 ALLERGIES No Information ENCOUNTERS Encounter Location Date Diagnosis [place] [id number] [address] Oct, [facility] [address] [id number] [place] [address] 35791- 9390 Sep, [facility] [id number] [place] [address] 96859- 8771 Aug, [facility] [address] [address]- 2[address] Aug, Exposure to hepatitis C Z20.5 and Routine adult health maintenance Z00.00 [facility] [id number] [place] [address] 32318- 8746 Aug, Exposure to hepatitis C Z20.5 [facility] [address] [address]- 5708 11 Aug, 2017 Medicare annual wellness visit, initial Z00.00 ; Coronary artery disease involving hopi coronary artery of hopi heart without angina pectoris I25.10 ; Hyperlipidemia, unspecified hyperlipidemia type E78.5 ; Essential hypertension I10 ; GERD (gastroesophageal reflux disease) K21.9 ; Routine adult health maintenance Z00.00 ; Encounter for immunization Z23 ; Type 2 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, unspecified E11.40 and 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 [facility] [id number] [place] [address] 44314- 5284 30 Jul, 2017 Type 2 diabetes mellitus without complications E11.9 and Type 2 diabetes mellitus without complications E11.9 [facility] [id number] [place] [address] 30774- 3294 July, [facility] [id number] [place] [address] 05902- 2673 July, [facility] [id number] [place] [address] 75829- 9599 Mar, Type 2 diabetes mellitus without complications E11.9 [facility] [address] [address]- 3[address] Mar, [facility] [id number] [place] [address] 30063- 8041 Feb, Type 2 diabetes mellitus without complications E11.9 [facility] [address] [address]- 2789 Jan, Type 2 diabetes mellitus without complications E11.9 [facility] [id number] [place] [address] 26465- 5395 Jan, Type 2 diabetes mellitus without complications E11.9 [facility] [id number] [address] Nov, [facility] [address] [address]- 3873 Oct, Type 2 diabetes mellitus without complications E11.9 [facility] [id number] [place] [address] 67520- 3276 Oct, Type 2 diabetes mellitus without complications E11.9 ; Essential hypertension I10 and Neck pain M54.2 [facility] [id number] [place] [address] 43876- 1854 Sep, [facility] [id number] [place] [address] 11178- 2009 Aug, Type 2 diabetes mellitus without complications E11.9 [place] [id number] [place] [address] 77416- 9030 Jun, Type 2 diabetes mellitus without complications E11.9 ; Neck pain M54.2 and Essential hypertension I10 [place] [address] [place] [id number] [place] [address] 50873- 8788 17 Jun, 2016 [place] [address] [place] [id number] [place] [address] 60465- 2413 Jun, [place] [address] 71050- 8096 Jun, GERD (gastroesophageal reflux disease) K21.9 and Type 2 diabetes mellitus without complications E11.9 [place] [address] [place] [id number] [place] [address] 50340- 4354 Mar, Paresthesias in right hand R20.2 [place] [address] [place] [id number] [place] [address] 01362- 9511 Feb, Type 2 diabetes mellitus without complications E11.9 [facility] [address] [place] [address] [id number] Feb, Encounter for dental examination Z01.20 [facility] [id number] [place] [address] 48510- 2438 09 Feb, 2016 Type 2 diabetes mellitus without complications E11.9 and Neck pain M54.2 [facility] [id number] [place] [address] 78412- 7170 Feb, Type 2 diabetes mellitus without complications E11.9 [facility] [address] [id number] [id number] Jan, Dental examination Z01.20 [facility] [id number] [place] [address] 03987- 1744 Jan, [facility] [address] [id number] [address]- 5288 Jan, [facility] [id number] [place] [address] [id number] Dec, Dental caries K02.9 [facility] [address] [id number] [place] [address] 09601- 2682 Nov, [facility] [address] [facility] [id number] [place] [address] 24096- 6260 Nov, [facility] [id number] [place] [address] 58903- 8289 Oct, Type 2 diabetes mellitus without complications E11.9 ; Neck pain M54.2 and Essential hypertension I10 [facility] [id number] [place] [address] 80291- 4169 Oct, [facility] [address] [id number] [place] [address] [id number] Oct, Dental examination Z01.20 [facility] [address], [place] [address]- 2100 Sep, [facility] [address] [facility] [id number], [place] [address]- 0009 Sep, [facility] [id number] [place] [address] 67318- 4619 Aug, Essential (primary) hypertension I10 [facility] [address] [facility] [id number] [place] [address] 79155- 0276 Aug, [facility] [address] [address]- 4594 Aug, [facility] [id number] [place] [address] 84596- 2436 July, Essential (primary) hypertension I10 [facility] [id number] [place] [address] 99248- 8966 July, Essential (primary) hypertension I10 and Type 2 diabetes mellitus without complications E11.9 [facility] [id number] [place] [address] 54232- 9729 July, [facility] [id number] [place] [address] 63270- 0497 Jun, GERD (gastroesophageal reflux disease) K21.9 [facility] [id number] [place] [address] 09495- 1200 Jun, GERD (gastroesophageal reflux disease) K21.9 [facility] [id number] [place] [address] 06938- 1053 Jun, [facility] [id number] [place] [address] 12078- 1078 Jun, Neuropathy G62.9 [facility] [id number] [place] [address] 47583- 9939 May, Essential (primary) hypertension I10 [facility] [address] [address] May, Bronchitis J40 [facility] [id number] [place] [address] 95811- 9755 May, Type 2 diabetes mellitus without complications E11.9 and Essential (primary) hypertension I10 [facility] [id number] [address]- 1217 May, [facility] [id number] [place] [address] 16776- 2941 May, GERD (gastroesophageal reflux disease) K21.9 [facility] [address] [address]- 6600 Apr, Other and unspecified hyperlipidemia 272.4 ; Unspecified essential hypertension 401.9 ; Type 2 diabetes mellitus without complications E11.9 ; Neck pain M54.2 and Paresthesias in right hand R20.2 [facility] [id number] [place] [address] 55034- 5773 Apr, [facility] [id number] [place] [address] 83469- 3364 Apr, Neuropathy G62.9 [facility] [id number] [place] [address] 81373- 3065 Mar, [facility] [id number] [place] [address] 73580- 3908 Feb, [facility] [id number] [place] [address] 05552- 1892 Jan, [facility] [id number] [place] [address] 31601- 2483 Dec, [facility] [id number] [place] [address] 82846- 1993 Dec, Type 2 diabetes mellitus without complications E11.9 ; Encounter for immunization Z23 and Neck pain M54.2 [facility] [id number] [place] [address] 75181- 6120 Dec, [facility] [id number] [place] [address] 66160- 4970 Nov, [facility] [id number] [place] [address] 17744- 9807 Nov, [facility] [id number] [place] [address] 30159- 7348 Oct, [facility] [id number] [place] [address] 01693- 2193 Oct, [facility] [id number] [place] [address] 14175- 3815 Sep, [facility] [id number] [place] [address] 21503- 5706 Sep, Coronary atherosclerosis of unspecified type of vessel, hopi or graft 414.00 ; Diabetes mellitus without mention of complication, type II or unspecified type, not stated as uncontrolled 250.00 ; Hyperlipidemia 272.4 and HTN (hypertension) 401.9 [facility] [address] [address]- 9723 Aug, [facility] [id number] [place] [address] 21500- 5490 July, [facility] [id number] [place] [address] 30871- 6808 Jun, [facility] [id number] [place] [address] 63104- 6476 Jun, [facility] [id number] [place] [address] 98718- 7017 May, [facility] [id number] [place] [address] 02120- 4789 May, [facility] [id number] [place] [address] 98754- 2772 May, [facility] [id number] [place] [address] 22712- 6668 May, [facility] [address], [place] [address]- 8955 Apr, [facility] [address], [place] [address]- 4744 Apr, [facility] [address] 5941 Apr, [facility] [id number] [place] [address] 73731155- 0380 Apr, [facility] [address] [address]- 0086 Apr, [facility] [id number] [place] [address] 62044- 5119 Apr, [facility] [address] [id number] [place] [address]- 0714 Apr, [facility] [place] [facility] [address] [id number] [place] [address]- 3819 Apr, [facility] [place] [facility] [address] [id number] [place] [address]- 6494 Mar, [facility] [place] [facility] [address] [id number] [place] [address]- 8297 Mar, [facility] [place] [facility] [address] [id number] [place] [address]- 5635 Mar, [facility] [place] [facility] [address] [id number] [place] [address]- 3405 Mar, [facility] [place] [facility] [address] [id number], [place] [address]- 4443 Mar, [facility] [place] [facility] [address] [id number] [place] [address]- 6974 Mar, [facility] [place] [facility] [address] [id number] [place] [address]- 5709 Mar, [facility] [place] [facility] [address] [facility] [id number] [place] [address]- 0881 Mar, [facility] [place] [facility] [address] [id number], [place] [address]- 7220 Feb, [facility] [place] [facility] [address] [id number], [place] [address]- 0420 Feb, [facility] [place] [facility] [address] [id number] [place] [address]- 2957 Feb, [facility] [place] [facility] [address] [id number] [place] [address]- 0405 Feb, [facility] [place] [facility] [address] [id number] [place] [address]- 9152 Feb, [facility] [place] [facility] [address] [id number] [place] 2068 Feb, [facility] [place] [facility] [address] [id number] [place] [address]- 7777 Feb, [facility] [place] [facility] [address] [id number] [place]- 0347 Feb, [facility] [place] [facility] [address] [id number] [place]- 2199 Feb, [facility] [place] [facility] [address] [id number] [place] 0979 Feb, [facility] [place] [facility] [address] [id number] [place] [address]- 7129 Jan, [facility] [place] [facility] [address] [id number] [place] [address]- 8544 Jan, [facility] [place] [facility] [address] [id number] [place] [address]- 6292 Dec, [facility] [place] [facility] [address] [id number] [place] [address]- 1919 Dec, [facility] [place] [facility] [address] [id number] [place] [address]- 6084 Dec, [facility] [place] [facility] [address] [id number] [place] [address]- 8987 Dec, [facility] [place] [facility] [address] [id number] [place] [address]- 6958 Nov, [facility] [place] [facility] [address] [id number] [place] [address]- 4205 Nov, [facility] [place] [facility] [address] [id number] [place] 7392 Nov, [facility] [place] [facility] [address] [id number] [place] [address]- 0050 Nov, [facility] [place] [facility] [address] [id number] [place] [address]- 5366 Oct, [facility] [place] [facility] [address] [id number] [place] [address]- 5719 Oct, [facility] [place] [facility] [address] [id number] [place] [address]- 9991 Oct, [facility] [place] [facility] [address] [id number] [place] [address]- 8975 Oct, [facility] [place] [facility] [address] [id number] [place] [address]- 4951 Oct, [facility] [place] [facility] [address] [id number] [place] [address]- 6335 Sep, [facility] [place] [facility] [address] [id number] [place] [address]- 3256 Sep, [facility] [place] [facility] [address] [id number] [place] [address]- 1418 Sep, [facility] [place] [facility] [address] [id number] [place] [address]- 0034 Sep, [facility] [place] [facility] [address] [id number] [place] [address]- 9662 Sep, [facility] [place] [facility] [address] [id number] [place] [address]- 9132 Sep, [facility] [place] [facility] [address] [id number], [place] [address]- 8105 Aug, [facility] [place] [facility] [address] [id number], [place] [address]- 3883 Aug, [facility] [place] [facility] [address] [id number] [place] [address]- 1020 Aug, [facility] [place] [facility] [address] [id number] [place] [address]- 1849 Aug, [facility] [place] [facility] [address] [id number] [place] [address]- 1578 Aug, [facility] [place] [facility] [address] [id number] [place] [address]- 9303 Aug, [facility] [place] [facility] [address] [id number] [place] [address]- 9887 July, [facility] [place] [facility] [address] [id number] [place] [address]- 9715 July, [facility] [place] [facility] [address] [id number] [place] [address]- 3857 Jun, [facility] [place] [facility] [address] [id number] [place] [address]- 6160 Jun, [facility] [place] [facility] [address] [id number] [place] [address]- 9079 May, [facility] [place] [facility] [address] [facility] [id number] [place] [address]- 0869 May, [facility] [place] [facility] [address] [facility] [id number] [place] [address]- 5135 May, [facility] [place] [facility] [address] [facility] [id number] [place] [address]- 9933 May, [facility] [place] [facility] [address] [id number] [place] [address]- 0415 Apr, [facility] [place] [facility] [address] [facility] [id number] [place] [address]- 7756 Apr, [facility] [place] [facility] [address] [facility] [id number] [place] [address]- 6036 Apr, [facility] [place] [facility] [address] [facility] [id number] [place] [address]- 2198 Apr, [facility] [place] [facility] [address] [id number] [place] [address]- 9013 Apr, [facility] [place] [facility] [address] [facility] [id number] [place] [address]- 2536 Apr, [facility] [place] [facility] [address] [facility] [id number] [place] [address]- 7464 Feb, [facility] [place] [facility] [address] [id number] [place] [address]- 2547 Feb, [facility] [place] [facility] [address] [id number] [place] [address]- 2546 Feb, [facility] [place] [facility] [address] [id number] [place] [address]- 2544 Feb, [facility] [place] [facility] [address] [id number] [place] [address]- 5104 Jan, [facility] [place] [facility] [address] [id number] [place] [address]- 1398 Jan, [facility] [place] [facility] [address] [id number] [place] [address]- 9973 Dec, [facility] [place] [facility] [address] [id number] [place] [address]- 2062 Dec, [facility] [place] [facility] [address] [id number], [place] [address]- 0636 Dec, [facility] [place] [facility] [address] [id number] [place] [address]- 0628 Dec, [facility] [place] [facility] [address] [id number], [place] [address]- 5670 Oct, [facility] [place] [facility] [address] [id number][place] [id number] Oct, [facility] [place] [facility] [address] [id number][place] [address] Oct, [facility] [place] [facility] [address] [id number], [place] [address]- 2546 Oct, [facility] [place] [facility] [address] [id number], [place] [address]- 2546 Sep, [facility] [place] [facility] [address] [id number], [place] [address]- 2546 Sep, [facility] [place] [facility] [address] [id number], [place] [address]- 6031 Aug, [facility] [address] [id number] [place] [address]- 6641 Aug, [facility] [place] [facility] [address] [id number], [place] [address]- 6279 Aug, [facility] [address] [facility] [id number] [place] [address] Aug, [facility] [place] [facility] [address] [id number] [place] [address] July, [facility] [address] [id number] [place] [address] Jun, [facility] [address] [facility] [id number] [place] [address] May, [facility] [address] [facility] [id number], [place] [address] May, [facility] [place] [facility] [address] [facility] [id number] [place] [address] May, [facility] [address] [facility] [id number] [place] [address] May, [facility] [place] [facility] [address] [facility] [id number] [place] [address] May, [facility] [address] [id number], [place] [address] Apr, [facility] [place] [facility] [address] [id number], [place] [address] Apr, [facility] [place] [facility] [address] [id number] [place] [address] Apr, [facility] [place] [facility] [address] [id number][place] [address] Apr, [facility] [place] [facility] [address] [facility] [id number] [address] Mar, [facility] [place] [facility] [address] [id number] [place] [address] Mar, [facility] [place] [facility] [address] [id number] [place] [address] Mar, [facility] [place] [facility] [address] [id number] [place] [address] Mar, [facility] [place] [facility] [address] [id number] [place] [address] Jan, [facility] [place] [facility] [address] [id number] [place] [address] Jan, [facility] [place] [facility] [address] [id number] [place] [address] Jan, [facility] [place] [facility] [address] [id number] [place] [address] Jan, [facility] [place] [facility] [address] [id number] [place] [address] Jan, [facility] [place] [facility] [address] [id number] [place] [address] Jan, [facility] [place] [facility] [address] [id number] [place] [address] Jan, [facility] [place] [facility] [address] [id number] [place] [address] Jan, [facility] [place] [facility] [address] [id number] [place] [address] Jan, [facility] [place] [facility] [address] [id number] [place] [address] Jan, [facility] [place] [facility] [address] [id number] [place] [address] Dec, [facility] [place] [facility] [address] [id number] [place] [address] Dec, [facility] [place] [facility] [address] [id number] [place] [address] Dec, [facility] [address] [facility] [id number] [place] [address] Nov, [facility] [address] [id number], [place] [address] Nov, [facility] [address] [facility] [id number], [place] [address] Nov, [facility] [address] [id number], [place] [address] Nov, [facility] [address] [facility] [id number], [place] [address] Oct, [facility] [address] [id number], [place] [address] Oct, IMMUNIZATIONS No Known Immunizations SOCIAL HISTORY Never Assessed REASON FOR VISIT Refill request PLAN OF CARE VITAL SIGNS MEDICATIONS Medication Instructions Dosage Frequency Start Date End Date Duration Status Lisinopril 20 mg Orally twice a day 1 tablet 12h Active RESULTS No Results PROCEDURES No Known [...]
--- OUTSIDE RECORDS SUMMARY | 2018-03-09 09:20 | XMS REPORT ---
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 Active 036529713 Problem Type 2 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, unspecified E11.40 Active 27700662 Problem Neck pain M54.2 Active 78887127 Problem Type 2 diabetes mellitus without complications E11.9 Active 222107752 Problem GERD (gastroesophageal reflux disease) K21.9 Active 426105797 Problem Essential hypertension I10 Active 98283649 ALLERGIES Substance Reaction Event Type Date Status Morphine Sulfate Unknown Drug Allergy Aug, Active ENCOUNTERS Encounter Location Date Diagnosis [facility] [id number] [place] [address] 42185- 4699 Oct, [facility] [id number] [place] [address] 16922- 7624 Sep, [facility] [id number] [place] [address] 13202- 5370 Aug, [facility] [address] [address]156- 2814 Aug, Exposure to hepatitis C Z20.5 and Routine adult health maintenance Z00.00 [facility] [id number] [place] [address] 61062- 9938 Aug, Exposure to hepatitis C Z20.5 [facility] [address], [place] [address]327 11 Aug, 2017 Medicare annual wellness visit, initial Z00.00 ; Coronary artery disease involving [place] coronary artery of [place] heart without angina pectoris I25.10 ; Hyperlipidemia, unspecified hyperlipidemia type E78.5 ; Essential hypertension I10 ; GERD (gastroesophageal reflux disease) K21.9 ; Routine adult health maintenance Z00.00 ; Encounter for immunization Z23 ; Type 2 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, unspecified E11.40 and 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 [facility] [address], [place] [address] 28[address] 30 Jul, 2017 Type 2 diabetes mellitus without complications E11.9 and Type 2 diabetes mellitus without complications E11.9 [place] [address], [place] [address] 9126 08 Jul, 2017 [place] [id number] [address] 39[address] July, [facility] [id number] [address] 2562 Mar, Type 2 diabetes mellitus without complications E11.9 [facility] [address], [place] [address] 54[address] Mar, [facility] [address], [place] [address] 5187 Feb, Type 2 diabetes mellitus without complications E11.9 [facility] [address], [place] [address] 2067 Jan, Type 2 diabetes mellitus without complications E11.9 [facility] [address], [place] [address]- 3482 Jan, Type 2 diabetes mellitus without complications E11.9 [facility] [address] [address] Nov, [facility] [address], [place] [address]- 1767 Oct, Type 2 diabetes mellitus without complications E11.9 [facility] [address], [place] [address] 5828 Oct, Type 2 diabetes mellitus without complications E11.9 ; Essential hypertension I10 and Neck pain M54.2 [facility] [id number] [place] [address] 97380- 9694 Sep, [facility] [id number] [place] [address] 80764- 4476 05 Aug, 2016 Type 2 diabetes mellitus without complications E11.9 [facility] [id number] [place] [address] 75246- 6387 20 Jun, 2016 Type 2 diabetes mellitus without complications E11.9 ; Neck pain M54.2 and Essential hypertension I10 [facility] [id number] [place] [address] 38654- 9359 17 Jun, 2016 [facility] [id number] [place] [address] 50718- 0995 14 Jun, 2016 [facility] [id number] [place] [address] 52538- 7732 10 Jun, 2016 GERD (gastroesophageal reflux disease) K21.9 and Type 2 diabetes mellitus without complications E11.9 [facility] [id number] [place] [address] 45536- 4770 10 Mar, 2016 Paresthesias in right hand R20.2 [facility] [id number] [place] [address] 32051- 1349 Feb, Type 2 diabetes mellitus without complications E11.9 [facility] [id number] [place] [address] [id number] Feb, Encounter for dental examination Z01.20 [facility] [id number] [place] [address] 05787- 8705 Feb, Type 2 diabetes mellitus without complications E11.9 and Neck pain M54.2 [facility] [id number] [place] [address] 89034- 1183 Feb, Type 2 diabetes mellitus without complications E11.9 [facility] [address] [id number] Jan, Dental examination Z01.20 [facility] [address] [facility] [id number] [address] 0602 Jan, [facility] [id number], [place] [address]- 2278 Jan, [facility] [id number] [place] [address] [id number] Dec, Dental caries K02.9 [facility] [id number] [place] [address] 54050- 4637 Nov, [facility] [id number] [place] [address] 92419- 7446 Nov, [facility] [id number] [place] [address] 14802- 8299 Oct, Type 2 diabetes mellitus without complications E11.9 ; Neck pain M54.2 and Essential hypertension I10 [facility] [id number] [place] [address] 41807- 6031 Oct, [facility] [id number] [place] [address] [id number] Oct, Dental examination Z01.20 [facility] [address], [place] [address]- 0191 Sep, [facility] [id number] [place] [address] 17228- 2211 Sep, [facility] [id number] [place] [address] 99756- 2858 Aug, Essential (primary) hypertension I10 [facility] [address], [place] [address]- 5331 Aug, [facility] [address], [place] [address]- 0881 Aug, [facility] [id number] [place] [address] 18677- 9370 July, Essential (primary) hypertension I10 [facility] [id number] [place] [address] 77447- 1263 July, Essential (primary) hypertension I10 and Type 2 diabetes mellitus without complications E11.9 [facility] [address] 81683- 4537 July, [facility] [address] 30627- 1160 Jun, GERD (gastroesophageal reflux disease) K21.9 [facility] [address] 56672- 9477 Jun, GERD (gastroesophageal reflux disease) K21.9 [facility] [id number] [place] [address] 42228- 1954 Jun, [facility] [address] 07418- 4719 Jun, Neuropathy G62.9 [facility] [id number] [place] [address] 36681- 1583 May, Essential (primary) hypertension I10 [facility] [id number] [place] [address] 36952 -7191 May, Bronchitis J40 [facility] [id number] [place] [address] 92852- 6033 15 May, 2015 Type 2 diabetes mellitus without complications E11.9 and Essential (primary) hypertension I10 [facility] [id number] [place] [address] 37187- 3246 May, [facility] [id number] [place] [address] 12252- 5374 May, GERD (gastroesophageal reflux disease) K21.9 [facility] [id number] [place] [address] 14270- 2503 Apr, Other and unspecified hyperlipidemia 272.4 ; Unspecified essential hypertension 401.9 ; Type 2 diabetes mellitus without complications E11.9 ; Neck pain M54.2 and Paresthesias in right hand R20.2 [facility] [id number] [place] [address] 48852- 8024 Apr, [facility] [id number] [place] [address] 50234- 6076 Apr, Neuropathy G62.9 [facility] [id number] [place] [address] 28014- 6317 Mar, [facility] [id number] [place] [address] 71484- 3940 Feb, [facility] [id number] [place] [address] 42675- 5100 Jan, [facility] [id number] [place] [address] 01710- 6792 Dec, [facility] [id number] [place] [address] 20808- 7217 Dec, Type 2 diabetes mellitus without complications E11.9 ; Encounter for immunization Z23 and Neck pain M54.2 [facility] [id number], [place] [address]- 0920 Dec, [facility] [address], [place] [address]- 3926 Nov, [facility] [id number] [place] [address] 46628- 5360 Nov, [facility] [id number] [place] [address] 22438- 4919 Oct, [facility] [id number] [place] [address] 45777- 4174 Oct, [facility] [address], [place] [address]- 7632 Sep, [facility] [address] 8037 Sep, Coronary atherosclerosis of unspecified type of vessel, [place] or graft 414.00 ; Diabetes mellitus without mention of complication, type II or unspecified type, not stated as uncontrolled 250.00 ; Hyperlipidemia 272.4 and HTN (hypertension) 401.9 [facility] [address], [place] [address]- 2809 Aug, [facility] [id number] 3145 July, [facility] [address], [place] [address]- 6808 Jun, [facility] [address], [place] [address]- 2913 Jun, [facility] [address], [place] [address]- 0140 May, [facility] [address], [place] [address]- 6569 May, [facility] [address], [place] [address]- 6515 May, [facility] [address], [place] [address]- 8802 May, [facility] [address], [place] [address]- 9167 Apr, [facility] [address] 0462 Apr, [facility] [id number], [place] [address]- 4746 Apr, [facility] [address] 6064 Apr, [facility] [id number], [place] [address]- 7736 Apr, [facility] [address] [id number] [place] [address]- 2034 Apr, [facility] [place] [facility] [address] [id number] [place] [address]- 5619 Apr, [facility] [place] [facility] [address] [id number] [place] [address]- 3721 Apr, [facility] [place] [facility] [address] [id number] [place] [address]- 8614 Mar, [facility] [place] [facility] [address] [id number] [place] [address]- 4085 Mar, [facility] [place] [facility] [address] [id number] [place] [address]- 3401 Mar, [facility] [place] [facility] [address] [id number] [place] [address]- 9636 Mar, [facility] [place] [facility] [address] [id number] [place] [address]- 3292 Mar, [facility] [place] [facility] [address] [id number] [place] [address]- 8970 Mar, [facility] [place] [facility] [address] [id number] [place] [address]- 8135 Mar, [facility] [place] [facility] [address] [id number] [place] [address]- 8141 Mar, [facility] [place] [facility] [address] [id number] [place] [address]- 0355 Feb, [facility] [place] [facility] [address] [id number] [place] [address]- 7016 Feb, [facility] [place] [facility] [address] [id number] [place] [address]- 4280 Feb, [facility] [place] [facility] [address] [id number] [place] [address]- 0738 Feb, [facility] [place] [facility] [address] [id number] [place] [address]- 1959 Feb, [facility] [place] [facility] [address] [id number] [place] [address]- 8085 Feb, [facility] [place] [facility] [address] [id number] [place] [address]- 2312 Feb, [facility] [place] [facility] [address] [id number] [place] [address]- 8293 Feb, [facility] [place] [facility] [address] [id number] [place] 9349 Feb, [facility] [place] [facility] [address] [id number] [place] [address]- 0262 Feb, [facility] [place] [facility] [address] [id number] [place] [address]- 8100 Jan, [facility] [place] [facility] [address] [id number] [place] [address]- 8622 Jan, [facility] [place] [facility] [address] [id number] [place] [address]- 7641 Dec, [facility] [place] [facility] [address] [id number] [place] [address]- 1270 Dec, [facility] [place] [facility] [address] [id number] [place] [address]- 6798 Dec, [facility] [place] [facility] [address] [id number], [place] [address]- 9545 Dec, [facility] [place] [facility] [address] [id number], [place] [address]- 8904 15 Nov, 2013 [facility] [place] [facility] [address] [id number] [place] [address]- 6637 15 Nov, 2013 [facility] [place] [facility] [address] [id number] [place] [address]- 7385 Nov, [facility] [place] [facility] [address] [id number] [place] 7180 Nov, [facility] [place] [facility] [address] [id number] [place] [address]- 2044 Oct, [facility] [place] [facility] [address] [id number] [place] [address]- 9022 Oct, [facility] [place] [facility] [address] [id number] [place] [address]- 4277 Oct, [facility] [place] [facility] [address] [id number] [place] [address]- 7097 Oct, [facility] [place] [facility] [address] [id number] [place] [address]- 1217 Oct, [facility] [place] [facility] [address] [id number] [place] [address]- 8951 Sep, [facility] [place] [facility] [address] [id number] [place] [address]- 0624 Sep, [facility] [place] [facility] [address] [id number] [place] [address]- 3362 Sep, [facility] [place] [facility] [address] [id number] [place] [address]- 9675 Sep, [facility] [place] [facility] [address] [id number] [place] [address]- 5541 Sep, [facility] [place] [facility] [address] [id number] [place] [address]- 4390 Sep, [facility] [place] [facility] [address] [id number] [place] [address]- 0119 Aug, [facility] [place] [facility] [address] [id number] [place] [address]- 7657 Aug, [facility] [place] [facility] [address] [id number] [place] [address]- 1774 Aug, [facility] [place] [facility] [address] [id number] [place] [address]- 6852 Aug, [facility] [place] [facility] [address] [id number] [place] [address]- 2516 Aug, [facility] [place] [facility] [address] [id number] [place] [address]- 7727 Aug, [facility] [place] [facility] [address] [id number] [place] [address]- 8572 July, [facility] [place] [facility] [address] [id number] [place] [address]- 3985 July, [facility] [place] [facility] [address] [id number] [place] [address]- 7388 Jun, [facility] [place] [facility] [address] [id number] [place] [address]- 6295 Jun, [facility] [place] [facility] [address] [id number] [place] [address]- 4065 May, [facility] [place] [facility] [address] [id number] [place] [address]- 9249 May, [facility] [place] [facility] [address] [id number] [place] [address]- 5919 May, [facility] [place] [facility] [address] [id number] [place] [address]- 8703 May, [facility] [place] [facility] [address] [id number] [place] [address]- 0197 Apr, [facility] [place] [facility] [address] [id number] [place] [address]- 7891 Apr, [facility] [place] [facility] [address] [id number], [place] [address]- 0016 Apr, [facility] [place] [facility] [address] [id number] [place] [address]- 0106 Apr, [facility] [place] [facility] [address] [id number] [place] [address]- 5012 Apr, [facility] [place] [facility] [address] [id number] [place] [address]- 0718 Apr, [facility] [place] [facility] [address] [id number] [place] [address] 2543 06 Feb, 2013 [facility] [place] [facility] [address] [id number] [place] [address]- 5977 Feb, [facility] [place] [facility] [address] [id number] [place] [address]- 0252 Feb, [facility] [place] [facility] [address] [id number] [place] [address] 254 Feb, [facility] [place] [facility] [address] [id number] [place] [address]- 6785 Jan, [facility] [place] [facility] [address] [id number] [place] [address]- 4243 Jan, [facility] [place] [facility] [address] [id number] [place] [address]- 6219 Dec, [facility] [place] [facility] [address] [id number] [place] [address]- 7285 Dec, [facility] [place] [facility] [address] [id number] [place] 1097 Dec, [facility] [place] [facility] [address] [id number] [place] [address]- 2021 Dec, [facility] [place] [facility] [address] [id number] [place] [address]- 0668 Oct, [facility] [place] [facility] [address] [id number] [place] [id number] Oct, [facility] [place] [facility] [address] [facility] [id number] [id number] Oct, [facility] [place] [facility] [address] [id number] [place] [address]- 2548 Oct, [facility] [place] [facility] [address] [id number] [place] [address] 2541 Sep, [facility] [place] [facility] [address] [id number] [place] [address] 2540 Sep, [facility] [place] [facility] [address] [id number] [place] [address]- 2140 Aug, [facility] [place] [facility] [address] [id number] [place] [address]- 5524 Aug, [facility] [place] [facility] [address] [id number] [place] [address]- 2035 Aug, [facility] [place] [facility] [address] [id number] [place] [address]- 7541 Aug, [facility] [place] [facility] [address] [id number] [place] [address]- 2243 July, [facility] [place] [facility] [address] [id number] [place] [address]- 0054 16 Jun, 2012 [facility] [place] [facility] [address] [id number] [place] [address]- 6355 May, [facility] [place] [facility] [address] [id number] [place] [address]- 1230 May, [facility] [place] [facility] [address] [id number] [place] [address]- 2832 May, [facility] [place] [facility] [address] [id number] [place] [address]- 9646 May, [facility] [place] [facility] [address] [facility] [id number] [place] [address]- 9526 May, [facility] [place] [facility] [address] [id number] [place] [address]- 9150 Apr, [facility] [place] [facility] [address] [id number] [place] [address]- 5963 Apr, [facility] [place] [facility] [address] [id number] [place] [address] Apr, [facility] [place] [facility] [address] [id number] [place] [address] Apr, [facility] [place] [facility] [address] [id number] [place] [address] Mar, [facility] [place] [facility] [address] [id number] [place] [address] Mar, [facility] [place] [facility] [address] [id number] [place] [address] Mar, [facility] [place] [facility] [address] [id number] [place] [address] Mar, [facility] [place] [facility] [address] [id number] [place] [address] Jan, [facility] [place] [facility] [address] [id number] [place] [address] Jan, [facility] [place] [facility] [address] [id number] [place] [address] Jan, [facility] [place] [facility] [address] [id number] [place] [address] Jan, [facility] [place] [facility] [address] [id number] [place] [address] Jan, [facility] [place] [facility] [address] [id number] [place] [address] Jan, [facility] [place] [facility] [address] [id number] [place] [address] Jan, [facility] [place] [facility] [address] [id number], [place] [address] Jan, [facility] [place] [facility] [address] [id number], [place] [address] Jan, [facility] [place] [facility] [address] [id number] [place] [address] Jan, [facility] [place] [facility] [address] [id number] [place] [address] Dec, [facility] [place] [facility] [address] [id number] [place] [address] Dec, [facility] [place] [facility] [id number] [id number] Dec, [facility] [address] [id number], [place] [address] Nov, [facility] [id number], [place] [address] Nov, [facility] [id number], [place] [address] Nov, [facility] [id number], [place] [address] Nov, [facility] [id number], [place] [address] Oct, [facility] [address] [id number], [place] [address] Oct, IMMUNIZATIONS Vaccine Route Administration Date Status TDAP (BOOSTRIX) IM Intramuscular August 30, 2017 Administered SOCIAL HISTORY Never Assessed REASON FOR VISIT Medicare AWV - Initial Visit-James LAGUNAS PLAN OF CARE Activity Details Follow Up 1 Year Reason: Pending Test Mammogram, Bilateral Screening VITAL SIGNS Height 64 in 2017-08-30 Weight 204.8 lbs 2017-08-30 Temperature 98.6 degrees Fahrenheit 2017-08-30 Heart Rate 78 bpm 2017-08-30 Respiratory Rate 18 2017-08-30 BMI 35.15 kg/m2 2017-08-30 Blood pressure systolic 126 mmHg 2017-08-30 Blood pressure diastolic 68 mmHg 2017-08-30 MEDICATIONS Medication Instructions Dosage Frequency Start Date End Date Duration Status Easy Comfort Pen Mercer 31G X 8 MM as directed 6h Nov, Active Aspirin 81 mg take 1 tablet (81 mg) by oral route once daily Oct, Active Pantoprazole Sodium 40MG TAKE ONE TABLET BY MOUTH ONCE DAILY Active Clonidine HCl 0.1 MG Orally twice a day 1 tablet 12h Active Levemir Flexpen 100 unit/mL (3 mL) subcutaneously 2 times a day 82 Unit 12h Apr, Active MetFORMIN HCl ER 500MG TAKE ONE TABLET BY MOUTH TWICE DAILY Active Metoprolol Tartrate 100 MG Orally Once a day 1 tablet with food 24h Mar Active Humalog KwikPen 100 UNIT/ML Subcutaneous 3 times a day inject 45 units, as per insulin sliding scale protocol 8h Aug, Active Furosemide 40 MG Orally Once a day take 1 tablet (40 mg) by oral route once daily 24h 90 Active Clopidogrel Bisulfate 75MG TAKE ONE TABLET BY MOUTH ONCE DAILY Active OneTouch Ultra Test - USE ONE STRIP TO CHECK GLUCOSE THREE TIMES DAILY Active Neurontin 600MG Orally Three times a day 1 tablet 8h Active Lisinopril 20 mg Orally twice a day 1 tablet 12h Active Amlodipine Besylate 10MG TAKE ONE TABLET BY MOUTH ONCE DAILY Active Fenofibrate Micronized 134MG TAKE ONE CAPSULE BY MOUTH ONCE DAILY WITH FOOD Active Insulin Detemir 100 UNIT/ML Subcutaneous Once a day 82 units 24h Jan, Active Hydrocodone-Acetaminophen 10-325 MG Orally every 8 hrs 1 tablet as needed 8h July, 28 days Active Lipitor 40 MG TAKE ONE TABLET BY MOUTH ONCE PER DAY 90 Active C-PAP Machine Active RESULTS No Results PROCEDURES Procedure Date Ordered Result Body Site [facility] VISIT IPPE/AWV August 30, 2017 ANNUAL ABRIL VST; SHANIA PPS INIT August 30, 2017 PT TOBACCO SCREEN RCVD TLK August 30, 2017 FALL RISK ASSESSMENT DOCD August 30, 2017 SINGLE IMMUNIZATION ADMIN August 30, 2017 TDAP (BOOSTRIX) August 30, 2017 INSTRUCTIONS MEDICATIONS ADMINISTERED No Known Medications MEDICAL [...]
--- OUTSIDE RECORDS SUMMARY | 2018-03-09 09:21 | XMS REPORT ---
Author Author GEE AMADO Organization 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 [address] [place] [address] [id number] [place] [address] 04697- 0600 Sep, [facility] [id number] [place] [address] 81674- 4399 Aug, [facility] [address] [address]- [address]26 Aug, Exposure to hepatitis C Z20.5 and Routine adult health maintenance Z00.00 [facility] [address] [address]- 1276 Aug, Exposure to hepatitis C Z20.5 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 [address] [id number] [place] [address] 84536- 1301 30 Jul, 2017 Type 2 diabetes mellitus without complications E11.9 and Type 2 diabetes mellitus without complications E11.9 [facility] [address] [place] [id number] [place] [address] 04301- 8392 July, [facility] [id number] [place] [address] 32298- 7769 July, [facility] [address] [id number] [place] [address] 95774- 1765 Mar, Type 2 diabetes mellitus without complications E11.9 [facility] [address], [place] [address] 5[address] Mar, [facility] [address] [id number] [place] [address] 92884- 8062 Feb, Type 2 diabetes mellitus without complications E11.9 [facility] [address], [place] [address] 20[address] Jan, Type 2 diabetes mellitus without complications E11.9 [facility] [id number] [place] [address] 80792- 5360 Jan, Type 2 diabetes mellitus without complications E11.9 [facility] [id number] [address] Nov, [facility] [address], [place] [address]- 4981 Oct, Type 2 diabetes mellitus without complications E11.9 [facility] [address] [id number] [place] [address] 55064- 1152 Oct, Type 2 diabetes mellitus without complications E11.9 ; Essential hypertension I10 and Neck pain M54.2 [facility] [address] [place] [id number] [place] [address] 53674- 0512 Sep, [facility] [address] [place] [id number] [place] [address] 88246- 6056 Aug, Type 2 diabetes mellitus without complications E11.9 [place] [address] [address] [id number] [place] [address] 60641- 0438 Jun, Type 2 diabetes mellitus without complications E11.9 ; Neck pain M54.2 and Essential hypertension I10 [place] [address] [place] [id number] [place] [address] 81354- 9889 17 Jun, 2016 [place] [address] [place] [id number] [place] [address] 38802- 4878 Jun, [place] [address] 31685- 4978 Jun, GERD (gastroesophageal reflux disease) K21.9 and Type 2 diabetes mellitus without complications E11.9 [place] [address] [place] [id number] [place] [address] 68091- 3238 Mar, Paresthesias in right hand R20.2 [place] [address] [place] [id number] [place] [address] 91944- 8898 Feb, Type 2 diabetes mellitus without complications E11.9 [facility] [id number] [place] [address] [id number] Feb, Encounter for dental examination Z01.20 [facility] [address] [place] [id number] [place] [address] 19459- 3242 09 Feb, 2016 Type 2 diabetes mellitus without complications E11.[address]2 [facility] [address] [place] [id number] [place] [address] 18789- 4244 Feb, Type 2 diabetes mellitus without complications E11.9 [facility] [address] [id number] [id number] Jan, Dental examination Z01.20 [facility] [address] [id number] [place] [address] 25198- 1267 Jan, [facility] [address] [id number], [place] [address]- 1745 Jan, [facility] [id number] [place] [address] [id number] Dec, Dental caries K02.9 [facility] [id number] [place] [address] 31491- 2188 Nov, [facility] [address] [facility] [id number] [place] [address] 30668- 1952 Nov, [facility] [address] [place] [id number] [place] [address] 81305- 7175 Oct, Type 2 diabetes mellitus without complications E11.9 ; Neck pain M54.2 and Essential hypertension I10 [facility] [id number] [place] [address] 06308- 4258 Oct, [facility] [address] [place] [id number] [place] [address] [id number] Oct, Dental examination Z01.20 [facility] [address], [place] [address]- 0710 Sep, [facility] [address] [facility] [id number], [place] [address]- 58[address] Sep, [facility] [id number] [place] [address] 72728- 2316 Aug, Essential (primary) hypertension I10 [facility] [address] [facility] [id number] [place] [address] 28179- 4047 Aug, [facility] [address] [address]- 9674 Aug, [facility] [address] [place] [id number] [place] [address] 95130- 0046 July, Essential (primary) hypertension I10 [facility] [address] [place] [id number] [place] [address] 04099- 8879 July, Essential (primary) hypertension I10 and Type 2 diabetes mellitus without complications E11.9 [facility] [address] [place] [id number] [place] [address] 79369- 3816 July, [facility] [address] [place] [id number] [place] [address] 06287- 4539 Jun, GERD (gastroesophageal reflux disease) K21.9 [facility] [address] [place] [id number] [place] [address] 66189- 7504 Jun, GERD (gastroesophageal reflux disease) K21.9 [facility] [address] [place] [id number] [place] [address] 26893- 0907 Jun, [facility] [address] [place] [id number] [place] [address] 59882- 0241 Jun, Neuropathy G62.9 [facility] [address] [place] [id number] [place] [address] 59172- 8377 May, Essential (primary) hypertension I10 [facility] [address], [place] [address] May, Bronchitis J40 [facility] [address] [place] [id number] [place] [address] 53573- 0494 May, Type 2 diabetes mellitus without complications E11.9 and Essential (primary) hypertension I10 [facility] [address] [id number], [place] [address]- 2730 May, [facility] [address] [place] [id number] [place] [address] 59036- 3718 May, GERD (gastroesophageal reflux disease) K21.9 [facility] [address], [place] [address]- 4953 Apr, Other and unspecified hyperlipidemia 272.4 ; Unspecified essential hypertension 401.9 ; Type 2 diabetes mellitus without complications E11.9 ; Neck pain M54.2 and Paresthesias in right hand R20.2 [facility] [id number] [place] [address] 47436- 7866 Apr, [facility] [address] [place] [id number] [place] [address] 46779- 8746 Apr, Neuropathy G62.9 [facility] [address] [place] [id number] [place] [address] 81984- 1758 Mar, [facility] [address] [place] [id number] [place] [address] 67374- 1614 Feb, [facility] [address] [place] [id number] [place] [address] 03762- 2173 Jan, [facility] [address] [id number] [place] [address] 14459- 5270 Dec, [facility] [address] [place] [id number] [place] [address] 21517- 0729 Dec, Type 2 diabetes mellitus without complications E11.9 ; Encounter for immunization Z23 and Neck pain M54.2 [facility] [address] [place] [address] [id number] [place] [address] 88577- 8324 Dec, [facility] [address] [place] [id number] [place] [address] 87253- 7493 Nov, [facility] [address] [place] [address] [id number] [place] [address] 54575- 3186 Nov, [facility] [address] [place] [id number] [place] [address] 46410- 8167 Oct, [facility] [address] [place] [id number] [place] [address] 84774- 8937 Oct, [facility] [address] [place] [id number] [place] [address] 98640- 7344 Sep, [facility] [address] [place] [id number] [place] [address] 39224- 8358 Sep, Coronary atherosclerosis of unspecified type of vessel, lower [place] or graft 414.00 ; Diabetes mellitus without mention of complication, type II or unspecified type, not stated as uncontrolled 250.00 ; Hyperlipidemia 272.4 and HTN (hypertension) 401.9 [facility] [address], [place] [address]- 7850 Aug, [facility] [address] [place] [id number] [place] [address] 62073- 7137 July, [facility] [address] [place] [id number] [place] [address] 08202- 0407 Jun, [facility] [address] [place] [id number] [place] [address] 39746- 6222 Jun, [facility] [address] [place] [id number] [place] [address] 81516- 2847 May, [facility] [address] [place] [id number] [place] [address] 49385- 7051 May, [facility] [id number] [place] [address] 28756- 3191 May, [facility] [id number] [place] [address] 65159- 8108 May, [facility] [address], [place] [address]- 0810 Apr, [facility] [address] [address]457 Apr, [facility] [address] 9112 Apr, [facility] [address] [place] [address] [id number] [place] [address] [id number]- 7570 Apr, [facility] [address], [place] [address]- 8946 Apr, [facility] [address] [id number] [place] [address] 51813- 6835 Apr, [facility] [address] [id number] [place] [address]- 5899 Apr, [facility] [place] [facility] [address] [id number] [place] [address]- 7786 Apr, [facility] [place] [facility] [address] [id number] [place] [address]- 5642 Mar, [facility] [place] [facility] [address] [id number] [place] [address]- 5786 Mar, [facility] [place] [facility] [address] [id number] [place] [address]- 5239 Mar, [facility] [place] [facility] [address] [id number] [place] [address]- 8794 Mar, [facility] [place] [facility] [address] [id number], [place] [address]- 4016 Mar, [facility] [place] [facility] [address] [id number] [place] [address]- 0817 Mar, [facility] [place] [facility] [address] [id number] [place] [address]- 2536 Mar, [facility] [place] [facility] [address] [facility] [id number] [place] [address]- 7165 Mar, [facility] [place] [facility] [address] [id number], [place] [address]- 0585 Feb, [facility] [place] [facility] [address] [id number], [place] [address]- 2788 Feb, [facility] [place] [facility] [address] [id number] [place] [address]- 4462 Feb, [facility] [place] [facility] [address] [id number] [place] [address]- 2896 Feb, [facility] [place] [facility] [address] [id number] [place] [address]- 5845 Feb, [facility] [place] [facility] [address] [id number] [place] 8902 Feb, [facility] [place] [facility] [address] [id number] [place] [address]- 2864 Feb, [facility] [place] [facility] [address] [id number] [place] 4194 Feb, [facility] [place] [facility] [address] [id number] [place] 2039 Feb, [facility] [place] [facility] [address] [id number] [place] 0983 Feb, [facility] [place] [facility] [address] [id number] [place] [address]- 0946 Jan, [facility] [place] [facility] [address] [id number] [place] [address]- 8067 Jan, [facility] [place] [facility] [address] [id number] [place] [address]- 8652 Dec, [facility] [place] [facility] [address] [id number] [place] [address]- 1421 Dec, [facility] [place] [facility] [address] [id number] [place] [address]- 6117 Dec, [facility] [place] [facility] [address] [id number] [place] [address]- 5787 Dec, [facility] [place] [facility] [address] [id number] [place] [address]- 6140 Nov, [facility] [place] [facility] [address] [id number] [place] [address]- 3642 Nov, [facility] [place] [facility] [address] [id number] [place] 6971 Nov, [facility] [place] [facility] [address] [id number] [place] [address]- 6343 Nov, [facility] [place] [facility] [address] [id number] [place] [address]- 5927 Oct, [facility] [place] [facility] [address] [id number] [place] [address]- 9641 Oct, [facility] [place] [facility] [address] [id number] [place] [address]- 0916 Oct, [facility] [place] [facility] [address] [id number] [place] [address]- 2901 Oct, [facility] [place] [facility] [address] [id number] [place] [address]- 9533 Oct, [facility] [place] [facility] [address] [id number] [place] [address]- 2026 Sep, [facility] [place] [facility] [address] [id number] [place] [address]- 0955 Sep, [facility] [place] [facility] [address] [id number] [place] [address]- 0708 Sep, [facility] [place] [facility] [address] [id number] [place] [address]- 6043 Sep, [facility] [place] [facility] [address] [id number] [place] [address]- 0041 Sep, [facility] [place] [facility] [address] [id number] [place] [address]- 7453 Sep, [facility] [place] [facility] [address] [id number], [place] [address]- 1615 Aug, [facility] [place] [facility] [address] [id number], [place] [address]- 3936 Aug, [facility] [place] [facility] [address] [id number] [place] [address]- 1990 Aug, [facility] [place] [facility] [address] [id number] [place] [address]- 4453 Aug, [facility] [place] [facility] [address] [id number] [place] [address]- 4096 Aug, [facility] [place] [facility] [address] [id number] [place] [address]- 7756 Aug, [facility] [place] [facility] [address] [id number] [place] [address]- 7445 July, [facility] [place] [facility] [address] [id number] [place] [address]- 3713 July, [facility] [place] [facility] [address] [id number] [place] [address]- 4925 Jun, [facility] [place] [facility] [address] [id number] [place] [address]- 2327 Jun, [facility] [place] [facility] [address] [id number] [place] [address]- 5411 May, [facility] [place] [facility] [address] [facility] [id number] [place] [address]- 4946 May, [facility] [place] [facility] [address] [facility] [id number] [place] [address]- 3614 May, [facility] [place] [facility] [address] [facility] [id number] [place] [address]- 4848 May, [facility] [place] [facility] [address] [id number] [place] [address]- 3909 Apr, [facility] [place] [facility] [address] [facility] [id number] [place] [address]- 7759 Apr, [facility] [place] [facility] [address] [facility] [id number] [place] [address]- 7560 Apr, [facility] [place] [facility] [address] [facility] [id number] [place] [address]- 2007 Apr, [facility] [place] [facility] [address] [id number] [place] [address]- 8190 Apr, [facility] [place] [facility] [address] [facility] [id number] [place] [address]- 6576 Apr, [facility] [place] [facility] [address] [facility] [id number] [place] [address]- 3511 Feb, [facility] [place] [facility] [address] [id number] [place] [address]- 2542 Feb, [facility] [place] [facility] [address] [id number] [place] [address]- 2546 Feb, [facility] [place] [facility] [address] [id number] [place] [address]- 2547 Feb, [facility] [place] [facility] [address] [id number] [place] [address]- 0480 Jan, [facility] [place] [facility] [address] [id number] [place] [address]- 6686 Jan, [facility] [place] [facility] [address] [id number] [place] [address]- 5511 Dec, [facility] [place] [facility] [address] [id number] [place] [address]- 5163 Dec, [facility] [place] [facility] [address] [id number], [place] [address]- 8230 Dec, [facility] [place] [facility] [address] [id number] [place] [address]- 3636 Dec, [facility] [place] [facility] [address] [id number], [place] [address]- 9367 Oct, [facility] [place] [facility] [address] [id number][place] [id number] Oct, [facility] [place] [facility] [address] [id number][place] [id number] Oct, [facility] [place] [facility] [address] [id number], [place] [address]- 2546 Oct, [facility] [place] [facility] [address] [id number], [place] [address]- 2546 Sep, [facility] [place] [facility] [address] [id number], [place] [address] Sep, [facility] [place] [facility] [address] [id number], [place] [address] Aug, [facility] [address] [id number] [place] [address] Aug, [facility] [place] [facility] [address] [id number], [place] [address] Aug, [facility] [address] [facility] [id number] [place] [address] Aug, [facility] [place] [facility] [address] [id number] [place] [address] July, [facility] [address] [id number] [place] [address] Jun, [facility] [address] [facility] [id number] [place] [address] May, [facility] [address] [facility] [id number], [place] [address] May, [facility] [place] [facility] [address] [facility] [id number] [place] [address] May, [facility] [address] [facility] [id number] [place] [address] May, [facility] [place] [facility] [address] [facility] [id number] [place] [address] May, [facility] [address] [id number], [place] [address] Apr, [facility] [place] [facility] [address] [id number], [place] [address] Apr, [facility] [place] [facility] [address] [id number] [place] [address] Apr, [facility] [place] [facility] [address] [id number] [address] Apr, [facility] [place] [facility] [address] [facility] [id number][place] [address] Mar, [facility] [place] [facility] [address] [id number] [place] [address] Mar, [facility] [place] [facility] [address] [id number] [place] [address] Mar, [facility] [place] [facility] [address] [id number] [place] [address] Mar, [facility] [place] [facility] [address] [id number] [place] [address] Jan, [facility] [place] [facility] [address] [id number] [place] [address] Jan, [facility] [place] [facility] [address] [id number] [place] [address] Jan, [facility] [place] [facility] [address] [id number] [place] [address] Jan, [facility] [place] [facility] [address] [id number] [place] [address] Jan, [facility] [place] [facility] [address] [id number] [place] [address] Jan, [facility] [place] [facility] [address] [id number] [place] [address] Jan, [facility] [place] [facility] [address] [id number] [place] [address] Jan, [facility] [place] [facility] [address] [id number] [place] [address] Jan, [facility] [place] [facility] [address] [id number] [place] [address] Jan, [facility] [place] [facility] [address] [id number] [place] [address] Dec, [facility] [place] [facility] [address] [id number] [place] [address] Dec, [facility] [place] [facility] [address] [id number] [place] [address] Dec, [facility] [address] [facility] [id number], [place] [address] Nov, [facility] [address] [id number], [place] [address] Nov, [facility] [address] [id number], [place] [address] Nov, [facility] [address] [id number], [place] [address] Nov, [facility] [address] [facility] [id number], [place] [address] Oct, [facility] [address] [id number], [place] [address] Oct, IMMUNIZATIONS No Known Immunizations SOCIAL HISTORY Never Assessed REASON FOR VISIT PLAN OF CARE VITAL SIGNS MEDICATIONS Unknown [...]
--- OUTSIDE RECORDS SUMMARY | 2018-03-09 09:21 | XMS REPORT ---
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 353043202 Problem Type 2 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, unspecified E11.40 Active 77208095 Problem Neck pain M54.2 Active 19559182 Problem Type 2 diabetes mellitus without complications E11.9 Active 996456663 Problem GERD (gastroesophageal reflux disease) K21.9 Active 047719772 Problem Essential hypertension I10 Active 36867389 ALLERGIES No Information ENCOUNTERS Encounter Location Date Diagnosis [place] [id number] [address]- [address] Oct, [facility] [id number] [place] [address] 23650- 1611 Sep, [facility] [id number] [place] [address] 13488- 3289 Aug, [facility] [address] [address]- 1368 Aug, Exposure to hepatitis C Z20.5 and Routine adult health maintenance Z00.00 [facility] [address] 17[address]- 9481 Aug, Exposure to hepatitis C Z20.5 [facility] [address] 8[address]- 8280 11 Aug, 2017 Medicare annual wellness visit, initial Z00.00 ; Coronary artery disease involving [place] coronary artery of [place] heart without angina pectoris I25.10 ; Hyperlipidemia, unspecified hyperlipidemia type E78.5 ; Essential hypertension I10 ; GERD (gastroesophageal reflux disease) K21.9 ; Routine adult health maintenance Z00.00 ; Encounter for immunization Z23 ; Type 2 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, unspecified E11.40 and 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 [facility] [id number] [place] [address] 32406- 0606 30 Jul, 2017 Type 2 diabetes mellitus without complications E11.9 and Type 2 diabetes mellitus without complications E11.9 [facility] [id number] [place] [address] 65238- 5528 July, [facility] [id number] [place] [address] 29873- 3584 July, [facility] [id number] [place] [address] 45571- 6879 Mar, Type 2 diabetes mellitus without complications E11.9 [facility] [address] [address]- 0[address] Mar, [facility] [id number] [place] [address] 44311- 9033 Feb, Type 2 diabetes mellitus without complications E11.9 [facility] [address] [address] 1585 Jan, Type 2 diabetes mellitus without complications E11.9 [facility] [id number] [place] [address] 51350- 9729 Jan, Type 2 diabetes mellitus without complications E11.9 [facility] [id number] [address] Nov, [facility] [address] [address]- 4529 Oct, Type 2 diabetes mellitus without complications E11.9 [facility] [id number] [place] [address] 64560- 1881 Oct, Type 2 diabetes mellitus without complications E11.9 ; Essential hypertension I10 and Neck pain M54.2 [facility] [id number] [place] [address] 93935- 5483 Sep, [facility] [address] [address] [id number] [place] [address] 36857- 1498 Aug, Type 2 diabetes mellitus without complications E11.9 [place] [id number] [place] [address] 73632- 3977 Jun, Type 2 diabetes mellitus without complications E11.9 ; Neck pain M54.2 and Essential hypertension I10 [place] [id number] [place] [address] 74576- 6245 17 Jun, 2016 [place] [address] [id number] [place] [address] 39063- 6283 Jun, [place] [address] 66916- 9521 Jun, GERD (gastroesophageal reflux disease) K21.9 and Type 2 diabetes mellitus without complications E11.9 [place] [address] [place] [id number] [place] [address] 61514- 3968 Mar, Paresthesias in right hand R20.2 [place] [address] [place] [id number] [place] [address] 98651- 9228 Feb, Type 2 diabetes mellitus without complications E11.9 [facility] [id number] [place] [address] [id number] Feb, Encounter for dental examination Z01.20 [facility] [address] [id number] [place] [address] 72950- 9583 09 Feb, 2016 Type 2 diabetes mellitus without complications E11.9 and Neck pain M54.2 [facility] [id number] [place] [address] 10585- 8781 Feb, Type 2 diabetes mellitus without complications E11.9 [facility] [address] [id number] [id number] Jan, Dental examination Z01.20 [facility] [address] [id number] [place] [address] 30825- 8570 Jan, [facility] [address] [id number] [address]- 2086 Jan, [facility] [id number] [place] [address] [id number] Dec, Dental caries K02.9 [facility] [id number] [place] [address] 78680- 5372 Nov, [facility] [address] [facility] [id number] [place] [address] 81237- 4413 Nov, [facility] [address] [place] [id number] [place] [address] 40469- 6532 Oct, Type 2 diabetes mellitus without complications E11.9 ; Neck pain M54.2 and Essential hypertension I10 [facility] [id number] [place] [address] 12912- 5324 Oct, [facility] [address] [place] [id number] [place] [address] [id number] Oct, Dental examination Z01.20 [facility] [address] [address]- 8539 Sep, [facility] [address] [facility] [id number] [place] [address]- 2238 Sep, [facility] [id number] [place] [address] 82979- 2330 Aug, Essential (primary) hypertension I10 [facility] [address] [facility] [id number] [place] [address] 96118- 4756 Aug, [facility] [address] [address]- 0598 Aug, [facility] [id number] [place] [address] 36338- 6987 July, Essential (primary) hypertension I10 [facility] [id number] [place] [address] 81159- 6214 July, Essential (primary) hypertension I10 and Type 2 diabetes mellitus without complications E11.9 [facility] [id number] [place] [address] 91367- 1313 July, [facility] [id number] [place] [address] 10757- 9202 Jun, GERD (gastroesophageal reflux disease) K21.9 [facility] [id number] [place] [address] 88906- 4700 Jun, GERD (gastroesophageal reflux disease) K21.9 [facility] [id number] [place] [address] 71932- 4074 Jun, [facility] [id number] [place] [address] 82679- 2423 Jun, Neuropathy G62.9 [facility] [id number] [place] [address] 94144- 9728 May, Essential (primary) hypertension I10 [facility] [address] [address] May, Bronchitis J40 [facility] [address] [place] [id number] [place] [address] 22907- 2349 May, Type 2 diabetes mellitus without complications E11.9 and Essential (primary) hypertension I10 [facility] [id number] [address]- 6090 May, [facility] [address] [place] [id number] [place] [address] 70452- 2374 May, GERD (gastroesophageal reflux disease) K21.9 [facility] [address] [address]- 6142 Apr, Other and unspecified hyperlipidemia 272.4 ; Unspecified essential hypertension 401.9 ; Type 2 diabetes mellitus without complications E11.9 ; Neck pain M54.2 and Paresthesias in right hand R20.2 [facility] [address] [place] [place] [id number] [place] [address] 15120- 7977 Apr, [facility] [address] [place] [id number] [place] [address] 78912- 2798 Apr, Neuropathy G62.9 [facility] [address] [id number] [place] [address] 99070- 9893 Mar, [facility] [address] [id number] [place] [address] 68721- 9776 Feb, [facility] [id number] [place] [address] 45805- 6720 Jan, [facility] [address] [id number] [place] [address] 27588- 5790 Dec, [facility] [address] [place] [id number] [place] [address] 88947- 8927 Dec, Type 2 diabetes mellitus without complications E11.9 ; Encounter for immunization Z23 and Neck pain M54.2 [facility] [id number] [place] [address] 93371- 6400 Dec, [facility] [id number] [place] [address] 83015- 5115 Nov, [facility] [id number] [place] [address] 66604- 1568 Nov, [facility] [id number] [place] [address] 78438- 3183 Oct, [facility] [id number] [place] [address] 67752- 2234 Oct, [facility] [id number] [place] [address] 79014- 9874 Sep, [facility] [id number] [place] [address] 33270- 9830 Sep, Coronary atherosclerosis of unspecified type of vessel, [place] or graft 414.00 ; Diabetes mellitus without mention of complication, type II or unspecified type, not stated as uncontrolled 250.00 ; Hyperlipidemia 272.4 and HTN (hypertension) 401.9 [facility] [address] [address]- 0573 Aug, [facility] [id number] [place] [address] 61158- 7341 July, [facility] [id number] [place] [address] 34187- 8679 Jun, [facility] [address] [id number] [place] [address] 87444- 6876 Jun, [facility] [id number] [place] [address] 57438- 2981 May, [facility] [address] [id number] [place] [address] 74282- 1853 May, [facility] [address] [place] [address] 37859- 8043 May, [facility] [address] [place] [address] 70768- 2204 May, [facility] [address] [address]- 1285 Apr, [facility] [address] [address]- 3723 Apr, [facility] [address] 7021 Apr, [facility] [id number] [place] [address] [id number]- 0458 Apr, [facility] [address] [address]- 3046 Apr, [facility] [id number] [place] [address] 51599- 6566 Apr, [facility] [address] [id number] [place] [address]- 1507 Apr, [facility] [place] [facility] [address] [id number] [place] [address]- 7443 Apr, [facility] [place] [facility] [address] [id number] [place] [address]- 3529 Mar, [facility] [place] [facility] [address] [id number] [place] [address]- 1420 Mar, [facility] [place] [facility] [address] [id number] [place] [address]- 7890 Mar, [facility] [place] [facility] [address] [id number] [place] [address]- 1851 Mar, [facility] [place] [facility] [address] [id number] [address]- 4717 Mar, [facility] [place] [facility] [address] [id number] [place] [address]- 7005 Mar, [facility] [place] [facility] [address] [id number] [place] [address]- 8023 Mar, [facility] [place] [facility] [address] [facility] [id number] [place] [address]- 2415 Mar, [facility] [place] [facility] [address] [id number] [address]- 5659 Feb, [facility] [place] [facility] [address] [id number] [place] [address]- 9150 Feb, [facility] [place] [facility] [address] [id number] [place] [address]- 4275 Feb, [facility] [place] [facility] [address] [id number] [place] [address]- 1841 Feb, [facility] [place] [facility] [address] [id number] [place] [address]- 8997 Feb, [facility] [place] [facility] [address] [id number] [place] 9202 Feb, [facility] [place] [facility] [address] [id number] [place] [address]- 8497 Feb, [facility] [place] [facility] [address] [id number] [place] 8832 Feb, [facility] [place] [facility] [address] [id number] [place] 9030 Feb, [facility] [place] [facility] [address] [id number] [place] 0867 Feb, [facility] [place] [facility] [address] [id number] [place] [address]- 2376 Jan, [facility] [place] [facility] [address] [id number] [place] [address]- 1348 Jan, [facility] [place] [facility] [address] [id number] [place] [address]- 7027 Dec, [facility] [place] [facility] [address] [id number] [place] [address]- 6653 Dec, [facility] [place] [facility] [address] [id number] [place] [address]- 1436 Dec, [facility] [place] [facility] [address] [id number] [place] [address]- 3518 Dec, [facility] [place] [facility] [address] [id number] [place] [address]- 8378 Nov, [facility] [place] [facility] [address] [id number] [place] [address]- 2552 Nov, [facility] [place] [facility] [address] [id number] [place] 7246 Nov, [facility] [place] [facility] [address] [id number] [place] [address]- 0617 Nov, [facility] [place] [facility] [address] [id number] [place] [address]- 9748 Oct, [facility] [place] [facility] [address] [id number] [place] [address]- 6265 Oct, [facility] [place] [facility] [address] [id number] [place] [address]- 2437 Oct, [facility] [place] [facility] [address] [id number] [place] [address]- 5453 Oct, [facility] [place] [facility] [address] [id number] [place] [address]- 3337 Oct, [facility] [place] [facility] [address] [id number] [place] [address]- 6277 Sep, [facility] [place] [facility] [address] [id number] [place] [address]- 4988 Sep, [facility] [place] [facility] [address] [id number] [place] [address]- 4602 Sep, [facility] [place] [facility] [address] [id number] [place] [address]- 7698 Sep, [facility] [place] [facility] [address] [id number] [place] [address]- 5861 Sep, [facility] [place] [facility] [address] [id number] [place] [address]- 0827 Sep, [facility] [place] [facility] [address] [id number] [address]- 9444 Aug, [facility] [place] [facility] [address] [id number] [place] [address]- 3719 Aug, [facility] [place] [facility] [address] [id number] [place] [address]- 6002 Aug, [facility] [place] [facility] [address] [id number] [place] [address]- 6160 Aug, [facility] [place] [facility] [address] [id number] [place] [address]- 2070 Aug, [facility] [place] [facility] [address] [id number] [place] [address]- 9795 Aug, [facility] [place] [facility] [address] [id number] [place] [address]- 9922 July, [facility] [place] [facility] [address] [id number] [place] [address]- 7669 July, [facility] [place] [facility] [address] [id number] [place] [address]- 3621 Jun, [facility] [place] [facility] [address] [id number] [place] [address]- 5221 Jun, [facility] [place] [facility] [address] [id number] [place] [address]- 8648 May, [facility] [place] [facility] [address] [facility] [id number] [place] [address]- 7898 May, [facility] [place] [facility] [address] [facility] [id number] [place] [address]- 7799 May, [facility] [place] [facility] [address] [facility] [id number] [place] [address]- 2797 May, [facility] [place] [facility] [address] [id number] [place] [address]- 9382 Apr, [facility] [place] [facility] [address] [facility] [id number] [place] [address]- 9421 Apr, [facility] [place] [facility] [address] [facility] [id number] [place] [address]- 5294 Apr, [facility] [place] [facility] [address] [facility] [id number] [place] [address]- 8682 Apr, [facility] [place] [facility] [address] [id number] [place] [address]- 4139 Apr, [facility] [place] [facility] [address] [facility] [id number] [place] [address]- 0226 Apr, [facility] [place] [facility] [address] [facility] [id number] [place] [address]- 1916 Feb, [facility] [place] [facility] [address] [id number] [place] [address]- 254 Feb, [facility] [place] [facility] [address] [id number] [place] [address]- 2546 Feb, [facility] [place] [facility] [address] [id number] [place] [address]- 2544 Feb, [facility] [place] [facility] [address] [id number] [place] [address]- 6719 Jan, [facility] [place] [facility] [address] [id number] [place] [address]- 6307 Jan, [facility] [place] [facility] [address] [id number] [place] [address]- 0994 Dec, [facility] [place] [facility] [address] [id number] [place] [address]- 4587 Dec, [facility] [place] [facility] [address] [id number] [place] [address]- 4263 Dec, [facility] [place] [facility] [address] [id number] [place] [address]- 9791 Dec, [facility] [place] [facility] [address] [id number] [place] [address]- 2740 Oct, [facility] [place] [facility] [address] [id number] [place] [id number] Oct, [facility] [place] [facility] [address] [id number] [place] [address] Oct, [facility] [place] [facility] [address] [id number] [place] [address]- 2546 Oct, [facility] [place] [facility] [address] [id number] [place] [address]- 2546 Sep, [facility] [place] [facility] [address] [id number] [place] [address]- 2546 Sep, [facility] [place] [facility] [address] [id number] [place] [address]- 8352 Aug, [facility] [address] [id number] [place] [address]- 3638 Aug, [facility] [place] [facility] [address] [id number] [place] [address]- 2018 Aug, [facility] [address] [facility] [id number] [place] [address]- 2229 Aug, [facility] [place] [facility] [address] [id number] [place] [address]- 0362 July, [facility] [address] [id number] [place] [address]- 6523 Jun, [facility] [address] [facility] [id number] [place] [address]- 8424 May, [facility] [address] [facility] [id number] [place] [address]- 6735 May, [facility] [place] [facility] [address] [facility] [id number] [place] [address]- 0708 May, [facility] [address] [facility] [id number] [place] [address] May, [facility] [place] [facility] [address] [facility] [id number] [place] [address] May, [facility] [address] [id number] [place] [address] Apr, [facility] [place] [facility] [address] [id number] [place] [address] Apr, [facility] [place] [facility] [address] [id number] [place] [address] Apr, [facility] [place] [facility] [address] [id number] [place] Apr, [facility] [place] [facility] [address] [facility] [id number] [place] [address] Mar, [facility] [place] [facility] [address] [id number] [place] [address] Mar, [facility] [place] [facility] [address] [id number] [place] [address] Mar, [facility] [place] [facility] [address] [id number] [place] [address] Mar, [facility] [place] [facility] [address] [id number] [place] [address] Jan, [facility] [place] [facility] [address] [id number] [place] [address] Jan, [facility] [place] [facility] [address] [id number] [place] [address] Jan, [facility] [place] [facility] [address] [id number] [place] [address] Jan, [facility] [place] [facility] [address] [id number] [place] [address] Jan, [facility] [place] [facility] [address] [id number] [place] [address] Jan, [facility] [place] [facility] [address] [id number] [place] [address] Jan, [facility] [place] [facility] [address] [id number] [place] [address] Jan, [facility] [place] [facility] [address] [id number] [place] [address] Jan, [facility] [place] [facility] [address] [id number] [place] [address] Jan, [facility] [place] [facility] [address] [id number] [place] [address] Dec, [facility] [place] [facility] [address] [id number] [place] [address] Dec, [facility] [place] [facility] [address] [id number] [place] [address] Dec, [facility] [address] [facility] [id number] [place] [address] Nov, [facility] [address] [facility] [id number] [place] [address] Nov, [facility] [address] [facility] [id number] [place] [address] Nov, [facility] [address] [facility] [id number] [place] [address] Nov, [facility] [address] [facility] [id number] [place] [address] Oct, [facility] [address] [facility] [id number] [place] [address] Oct, IMMUNIZATIONS No Known Immunizations SOCIAL HISTORY Never Assessed REASON FOR VISIT Lab--[facility] PLAN OF CARE VITAL SIGNS MEDICATIONS Unknown Medications RESULTS Name Result Date Reference Range HEP C ANTIBODY (STATE) 2017-08-30 RESULTS non-reactive PROCEDURES Procedure Date Ordered Result Body Site No Charge August 30, 2017 INSTRUCTIONS MEDICATIONS ADMINISTERED No [...]
--- OUTSIDE RECORDS SUMMARY | 2018-03-09 09:22 | XMS REPORT ---
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 289918522 Problem Type 2 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, unspecified E11.40 Active 38162724 Problem Neck pain M54.2 Active 33567202 Problem Type 2 diabetes mellitus without complications E11.9 Active 049826627 Problem GERD (gastroesophageal reflux disease) K21.9 Active 679156581 Problem Essential hypertension I10 Active 08437114 ALLERGIES No Information ENCOUNTERS Encounter Location Date Diagnosis [facility] [id number] [place] [address] 88178- 3561 Sep, [facility] [id number] [place] [address] 36463- 4877 Aug, [facility] [id number] [place] [address] 13977- 2279 Aug, Exposure to hepatitis C Z20.5 and Routine adult health maintenance Z00.00 [facility] [address] 96365- 7698 Aug, Exposure to hepatitis C Z20.5 [facility] [id number] [place] [address] 08631- 1400 Aug, Medicare annual wellness visit, initial Z00.00 ; Coronary artery disease involving alutiiq coronary artery of alutiiq heart without angina pectoris I25.10 ; Hyperlipidemia, unspecified hyperlipidemia type E78.5 ; Essential hypertension I10 ; GERD (gastroesophageal reflux disease) K21.9 ; Routine adult health maintenance Z00.00 ; Encounter for immunization Z23 ; Type 2 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, unspecified E11.40 and MCC 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 [facility] [id number] [address] 4665 30 Jul, 2017 Type 2 diabetes mellitus without complications E11.9 and Type 2 diabetes mellitus without complications E11.9 [facility] [id number] [place] [address] 11082- 4211 July, [facility] [id number] [place] [address] 49467- 4263 July, [facility] [id number] [place] [address] 75679- 9826 Mar, Type 2 diabetes mellitus without complications E11.9 [facility] [id number] [place] [address] 60101- 4270 Mar, [facility] [id number] [place] [address] 69078- 2867 Feb, Type 2 diabetes mellitus without complications E11.9 [facility] [address], [place] [address] 1432 Jan, Type 2 diabetes mellitus without complications E11.9 [facility] [id number] [address] 1701 Jan, Type 2 diabetes mellitus without complications E11.9 [facility] [address] [address] 8241 Nov, [facility] [id number] [address] 8375 Oct, Type 2 diabetes mellitus without complications E11.9 [facility] [id number] [address] 5362 Oct, Type 2 diabetes mellitus without complications E11.9 ; Essential hypertension I10 and Neck pain M54.2 [facility] [id number] [address] 2484 Sep, [facility] [id number] [place] [address] 12073- 8320 05 Aug, 2016 Type 2 diabetes mellitus without complications E11.9 [facility] [id number] [place] [address] 18492- 4514 Jun, Type 2 diabetes mellitus without complications E11.9 ; Neck pain M54.2 and Essential hypertension I10 [facility] [id number] [place] [address] 39904- 7328 17 Jun, 2016 [facility] [id number] [place] [address] 92986- 8227 14 Jun, 2016 [facility] [id number] [place] [address] 14700- 4685 10 Jun, 2016 GERD (gastroesophageal reflux disease) K21.9 and Type 2 diabetes mellitus without complications E11.9 [facility] [id number] [place] [address] 43825- 7341 10 Mar, 2016 Paresthesias in right hand R20.2 [facility] [id number] [place] [address] 68457- 8628 Feb, Type 2 diabetes mellitus without complications E11.9 [facility] [id number] [place] [address] [id number] Feb, Encounter for dental examination Z01.20 [facility] [id number] [place] [address] 77916- 1864 Feb, Type 2 diabetes mellitus without complications E11.9 and Neck pain M54.2 [facility] [id number] [place] [address] 16835- 8497 02 Feb, 2016 Type 2 diabetes mellitus without complications E11.9 [facility] [id number] [place] [address] [id number] Jan, Dental examination Z01.20 [facility] [address] [id number], [place] [address] 9831 Jan, [facility] [id number] [place] [address] 26887- 6322 Jan, [facility] [id number] [place] [address] [id number] Dec, Dental caries K02.9 [facility] [id number] [place] [address] 36311- 7500 Nov, [facility] [address] [id number] [place] [address] 30883- 0524 Nov, [facility] [address] [id number] [place] [address] 05635- 9619 Oct, Type 2 diabetes mellitus without complications E11.9 ; Neck pain M54.2 and Essential hypertension I10 [facility] [id number] [place] [address] 19716- 3489 Oct, [facility] [address] [id number] [place] [address] [id number] Oct, Dental examination Z01.20 [facility] [address] [id number], [place] [address]- 7346 Sep, [facility] [address] [id number], [place] [address]- 0917 Sep, [facility] [address] [id number], [place] [address]- 7041 Aug, Essential (primary) hypertension I10 [facility] [address] [id number], [place] [address]- 5726 Aug, [facility] [id number] 3906 Aug, [facility] [id number], [place] [address]- 8768 July, Essential (primary) hypertension I10 [facility] [id number] [place] [address] 66478- 0273 July, Essential (primary) hypertension I10 and Type 2 diabetes mellitus without complications E11.9 [facility] [id number] [place] [address] 92379- 9524 July, [facility] [id number] [place] [address] 99565- 1403 14 Jun, 2015 GERD (gastroesophageal reflux disease) K21.9 [facility] [id number] [place] [address] 23224- 1642 Jun, GERD (gastroesophageal reflux disease) K21.9 [facility] [id number] [place] [address] 33187- 5804 08 Jun, 2015 [facility] [id number] [place] [address] 03758- 7136 Jun, Neuropathy G62.9 [facility] [id number] [place] [address] 50346- 2458 May, Essential (primary) hypertension I10 [facility] [id number] [place] [address] 67151 -6169 23 May, 2015 Bronchitis J40 [facility] [id number] [place] [address] 81156- 0095 15 May, 2015 Type 2 diabetes mellitus without complications E11.9 and Essential (primary) hypertension I10 [facility] [id number] [place] [address] 09888- 4639 10 May, 2015 [facility] [id number] [place] [address] 45733- 1995 10 May, 2015 GERD (gastroesophageal reflux disease) K21.9 [facility] [id number] [place] [address] 00142- 8194 25 Apr, 2015 Other and unspecified hyperlipidemia 272.4 ; Unspecified essential hypertension 401.9 ; Type 2 diabetes mellitus without complications E11.9 ; Neck pain M54.2 and Paresthesias in right hand R20.2 [facility] [address], [place] [address]- 5720 Apr, [facility] [id number] [place] [address] 92675- 6398 Apr, Neuropathy G62.9 [facility] [id number] [place] [address] 98985- 6564 Mar, [facility] [id number] [place] [address] 35205- 7525 Feb, [facility] [id number] [place] [address] 62537- 3372 Jan, [facility] [id number] [place] [address] 14287- 3476 Dec, [facility] [id number] [place] [address] 58341- 6504 Dec, Type 2 diabetes mellitus without complications E11.9 ; Encounter for immunization Z23 and Neck pain M54.2 [facility] [id number] [place] [address] 54452- 9360 Dec, [facility] [id number] [place] [address] 49927- 3963 Nov, [facility] [id number] [place] [address] 46140- 3635 Nov, [facility] [id number] [place] [address] 71433- 5477 Oct, [facility] [id number] [place] [address] 09680- 0743 Oct, [facility] [id number] [place] [address] 49853- 7984 Sep, [facility] [address], [place] [address]- 3460 Sep, Coronary atherosclerosis of unspecified type of vessel, alutiiq or graft 414.00 ; Diabetes mellitus without mention of complication, type II or unspecified type, not stated as uncontrolled 250.00 ; Hyperlipidemia 272.4 and HTN (hypertension) 401.9 [facility] [address] 5981 Aug, [facility] [address], [place] [address]- 5233 July, [facility] [id number] [place] [address] 98217- 8795 Jun, [facility] [address], [place] [address]- 2735 Jun, [facility] [id number] [place] [address] 50771- 0838 May, [facility] [id number] [place] [address] 41805- 1080 May, [facility] [id number] [place] [address] 39508- 1123 May, [facility] [address], [place] [address]- 1677 May, [facility] [address], [place] [address]- 7944 Apr, [facility] [address], [place] [address]- 4480 Apr, [facility] [address], [place] [address]- 4746 Apr, [facility] [address] 2681 Apr, [facility] [address], [place] [address]- 9766 Apr, [facility] [address] 6706 Apr, [facility] [address], [place] [address]- 5089 Apr, [facility] [address] [id number] [place] [address]- 9922 Apr, [facility] [place] [facility] [address] [id number] [place] [address]- 8213 Mar, [facility] [place] [facility] [address] [id number] [place] [address]- 3874 Mar, [facility] [place] [facility] [address] [id number] [place] [address]- 0447 Mar, [facility] [place] [facility] [address] [id number] [place] [address]- 8342 Mar, [facility] [place] [facility] [address] [id number] [place] [address]- 4559 Mar, [facility] [address] [id number] [place] [address]- 2742 Mar, [facility] [place] [facility] [address] [id number] [place] [address]- 8548 Mar, [facility] [place] [facility] [address] [id number] [place] [address]- 1009 Mar, [facility] [place] [facility] [address] [id number] [place] [address]- 1691 Feb, [facility] [place] [facility] [address] [id number] [place] [address]- 6225 Feb, [facility] [place] [facility] [address] [id number], [place] [address]- 3768 Feb, [facility] [place] [facility] [address] [id number] [place] [address]- 5984 Feb, [facility] [place] [facility] [address] [id number] [place] [address]- 3652 Feb, [facility] [place] [facility] [address] [id number] [place] [address]- 8864 Feb, [facility] [place] [facility] [address] [id number] [place] [address]- 4680 Feb, [facility] [place] [facility] [address] [id number] [place] [address]- 1542 Feb, [facility] [place] [facility] [address] [id number] [place] 8491 Feb, [facility] [place] [facility] [address] [id number] [place] 2095 Feb, [facility] [place] [facility] [address] [id number] [place] [address]- 1150 Jan, [facility] [place] [facility] [address] [id number] [place] [address]- 3980 Jan, [facility] [place] [facility] [address] [id number] [place] [address]- 0515 Dec, [facility] [place] [facility] [address] [id number] [place] [address]- 1735 Dec, [facility] [place] [facility] [address] [id number] [place] [address]- 0874 Dec, [facility] [place] [facility] [address] [id number] [place] [address]- 8956 Dec, [facility] [place] [facility] [address] [id number] [place] [address]- 7889 Nov, [facility] [place] [facility] [address] [id number] [place] [address]- 1441 15 Nov, 2013 [facility] [place] [facility] [address] [id number] [place] [address]- 2847 Nov, [facility] [place] [facility] [address] [id number] [place] [address]- 5542 Nov, [facility] [place] [facility] [address] [id number] [place] [address]- 0543 Oct, [facility] [place] [facility] [address] [id number] [place] [address]- 4680 Oct, [facility] [place] [facility] [address] [id number] [place] [address]- 2447 Oct, [facility] [place] [facility] [address] [id number] [place] [address]- 3955 Oct, [facility] [place] [facility] [address] [id number] [place] [address]- 4245 Oct, [facility] [place] [facility] [address] [id number] [place] [address]- 1643 Sep, [facility] [place] [facility] [address] [id number] [place] [address]- 3264 Sep, [facility] [place] [facility] [address] [id number] [place] [address]- 9113 Sep, [facility] [place] [facility] [address] [id number] [place] [address]- 2720 Sep, [facility] [place] [facility] [address] [id number] [place] [address]- 7760 Sep, [facility] [place] [facility] [address] [id number] [place] [address]- 7791 Sep, [facility] [place] [facility] [address] [id number] [place] [address]- 3709 Aug, [facility] [place] [facility] [address] [id number], [place] [address]- 7141 Aug, [facility] [place] [facility] [address] [id number], [place] [address]- 8056 Aug, [facility] [place] [facility] [address] [id number] [place] [address]- 5398 Aug, [facility] [place] [facility] [address] [id number] [place] [address]- 5497 Aug, [facility] [place] [facility] [address] [id number] [place] [address]- 9580 Aug, [facility] [place] [facility] [address] [id number] [place] [address]- 2108 July, [facility] [place] [facility] [address] [id number] [place] [address]- 4617 July, [facility] [place] [facility] [address] [id number] [place] [address]- 5507 Jun, [facility] [place] [facility] [address] [id number] [place] [address]- 1056 Jun, [facility] [place] [facility] [address] [id number] [place] [address]- 3060 May, [facility] [place] [facility] [address] [id number] [place] [address]- 0403 May, [facility] [place] [facility] [address] [id number] [place] [address]- 9740 May, [facility] [place] [facility] [address] [id number] [place] [address]- 3117 May, [facility] [place] [facility] [address] [id number] [place] [address]- 0087 Apr, [facility] [place] [facility] [address] [id number] [place] [address]- 3295 Apr, [facility] [place] [facility] [address] [facility] [id number] [place] [address]- 7952 Apr, [facility] [place] [facility] [address] [id number] [place] [address]- 6774 Apr, [facility] [place] [facility] [address] [id number] [place] [address]- 8853 Apr, [facility] [place] [facility] [address] [id number] [place] [address]- 1133 Apr, [facility] [place] [facility] [address] [id number] [place] [address]- 2546 Feb, [facility] [place] [facility] [address] [id number] [place] [address]- 8904 Feb, [facility] [place] [facility] [address] [id number] [place] [address]- 254 Feb, [facility] [place] [facility] [address] [id number] [place] [address]- 2546 Feb, [facility] [place] [facility] [address] [id number] [place] [address]- 2541 Jan, [facility] [place] [facility] [address] [id number] [place] [address]- 2545 Jan, [facility] [place] [facility] [address] [id number] [place] [address]- 8815 Dec, [facility] [place] [facility] [address] [id number] [place] [address]- 9136 Dec, [facility] [place] [facility] [address] [id number] [place] [address]- 3889 Dec, [facility] [place] [facility] [address] [id number], [place] [address]- 7409 Dec, [facility] [place] [facility] [address] [id number], [place] [address]- 7451 Oct, [facility] [place] [facility] [id number] [id number] Oct, [facility] [place] [facility] [id number] [id number] Oct, [facility] [place] [facility] [address] [id number], [place] [address]- 2546 Oct, [facility] [place] [facility] [address] [id number], [place] [address]- 3550 Sep, [facility] [place] [facility] [address] [id number], [place] [address]- 2546 Sep, [facility] [place] [facility] [address] [id number], [place] [address]- 2546 Aug, [facility] [place] [facility] [address] [id number], [place] [address]- 6429 Aug, [facility] [address] [id number] [place] [address]- 9570 Aug, [facility] [place] [facility] [address] [id number], [place] [address]- 8083 Aug, [facility] [address] [facility] [id number] [place] [address]- 9173 July, [facility] [address] [id number] [place] [address]- 5615 Jun, [facility] [address] [id number] [place] 7497 May, [facility] [address] [id number] [place] [address]- 4118 May, [facility] [address] [facility] [id number], [place] [address]- 0411 May, [facility] [place] [facility] [address] [facility] [id number] [place] [address] May, [facility] [address] [facility] [id number], [place] [address] May, [facility] [address] [facility] [id number], [place] [address] Apr, [facility] [place] [facility] [address] [id number], [place] [address] Apr, [facility] [place] [facility] [address] [id number], [place] [address] Apr, [facility] [place] [facility] [address] [id number], [place] [address] Apr, [facility] [place] [facility] [address] [id number], [place] [address] Mar, [facility] [place] [facility] [address] [facility] [id number], [place] [address] Mar, [facility] [place] [facility] [address] [id number] [place] [address] Mar, [facility] [place] [facility] [address] [id number] [place] [address] Mar, [facility] [place] [facility] [address] [id number] [place] [address] Jan, [facility] [place] [facility] [address] [id number] [place] [address] Jan, [facility] [place] [facility] [address] [id number] [place] [address] Jan, [facility] [place] [facility] [address] [id number] [place] [address] Jan, [facility] [place] [facility] [address] [id number] [place] [address] Jan, [facility] [place] [facility] [address] [id number] [place] [address] Jan, [facility] [place] [facility] [address] [id number] [place] [address] Jan, [facility] [place] [facility] [address] [id number] [place] [address] Jan, [facility] [place] [facility] [address] [id number] [place] [address] Jan, [facility] [place] [facility] [address] [id number] [place] [address] Jan, [facility] [place] [facility] [address] [id number] [place] [address] Dec, [facility] [place] [facility] [address] [id number] [place] [address] Dec, [facility] [place] [facility] [address] [id number] [place] [address] Dec, [facility] [place] [facility] [address] [id number] [place] [address] Nov, [facility] [address] [facility] [id number] [place] [address] Nov, [facility] [address] [facility] [id number], [place] [address] Nov, [facility] [address] [facility] [id number], [place] [address] Nov, [facility] [address] [facility] [id number], [place] [address] Oct, [facility] [address] [facility] [id number], [place] [address] Oct, IMMUNIZATIONS No Known Immunizations SOCIAL HISTORY Never Assessed REASON FOR VISIT Hydrocodone 5/ PLAN OF CARE VITAL SIGNS MEDICATIONS Medication Instructions Dosage Frequency Start Date End Date Duration Status Hydrocodone-Acetaminophen 10-325 MG Orally every 8 hrs 1 tablet as needed 8h July, 28 days Active RESULTS No Results PROCEDURES [...]
--- OUTSIDE RECORDS SUMMARY | 2018-03-09 09:22 | XMS REPORT ---
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 Active 571441307 Problem Type 2 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, unspecified E11.40 Active 13266650 Problem Neck pain M54.2 Active 83088551 Problem Type 2 diabetes mellitus without complications E11.9 Active 332176237 Problem GERD (gastroesophageal reflux disease) K21.9 Active 198739264 Problem Essential hypertension I10 Active 29920172 ALLERGIES No Information ENCOUNTERS Encounter Location Date Diagnosis [facility] [id number] [place] [address] 03967- 3743 Sep, [facility] [id number] [place] [address] 22779- 7829 Aug, [facility] [id number] [place] [address] 81364- 4806 Aug, Exposure to hepatitis C Z20.5 and Routine adult health maintenance Z00.00 [facility] [address] [address]- 5025 Aug, Exposure to hepatitis C Z20.5 [facility] [facility] [id number] [place] [address] 15169- 1673 Aug, Medicare annual wellness visit, initial Z00.00 ; 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 ; Hyperlipidemia, unspecified hyperlipidemia type E78.5 ; Essential hypertension I10 ; GERD (gastroesophageal reflux disease) K21.9 ; Routine adult health maintenance Z00.00 ; Encounter for immunization Z23 ; Type 2 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, unspecified E11.40 and FDC 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 [facility] [id number] [address] 2159 30 Jul, 2017 Type 2 diabetes mellitus without complications E11.9 and Type 2 diabetes mellitus without complications E11.9 [facility] [id number] [place] [address] 29294- 7572 July, [facility] [id number] [place] [address] 20335- 5953 July, [facility] [id number] [place] [address] 20606- 1798 Mar, Type 2 diabetes mellitus without complications E11.9 [facility] [id number] [place] [address] 46493- 6344 Mar, [facility] [id number] [place] [address] 83370- 3432 Feb, Type 2 diabetes mellitus without complications E11.9 [facility] [address], [place] [address] 8114 Jan, Type 2 diabetes mellitus without complications E11.9 [facility] [id number] [address] 5537 Jan, Type 2 diabetes mellitus without complications E11.9 [facility] [address] [address] 1687 Nov, [facility] [id number] [address]- 8377 Oct, Type 2 diabetes mellitus without complications E11.9 [facility] [id number] [address]- 4639 Oct, Type 2 diabetes mellitus without complications E11.9 ; Essential hypertension I10 and Neck pain M54.2 [facility] [id number] [address]- 7758 Sep, [facility] [id number] [place] [address] 56743- 8559 05 Aug, 2016 Type 2 diabetes mellitus without complications E11.9 [facility] [id number] [place] [address] 08797- 1564 Jun, Type 2 diabetes mellitus without complications E11.9 ; Neck pain M54.2 and Essential hypertension I10 [facility] [id number] [place] [address] 20564- 9196 17 Jun, 2016 [facility] [id number] [place] [address] 61899- 5996 14 Jun, 2016 [facility] [id number] [place] [address] 71830- 9601 10 Jun, 2016 GERD (gastroesophageal reflux disease) K21.9 and Type 2 diabetes mellitus without complications E11.9 [facility] [id number] [place] [address] 90361- 9349 10 Mar, 2016 Paresthesias in right hand R20.2 [facility] [id number] [place] [address] 36815- 9212 Feb, Type 2 diabetes mellitus without complications E11.9 [facility] [id number] [place] [address] [id number] Feb, Encounter for dental examination Z01.20 [facility] [id number] [place] [address] 19264- 2072 Feb, Type 2 diabetes mellitus without complications E11.9 and Neck pain M54.2 [facility] [id number] [place] [address] 62521- 8951 02 Feb, 2016 Type 2 diabetes mellitus without complications E11.9 [facility] [id number] [place] [address] [id number] Jan, Dental examination Z01.20 [facility] [address] [id number], [place] [address]- 0992 Jan, [facility] [id number] [place] [address] 08484- 3766 Jan, [facility] [id number] [place] [address] [id number] Dec, Dental caries K02.9 [facility] [id number] [place] [address] 54989- 8179 Nov, [facility] [id number] [place] [address] 84226- 1538 Nov, [facility] [address] [id number] [place] [address] 26495- 1021 Oct, Type 2 diabetes mellitus without complications E11.9 ; Neck pain M54.2 and Essential hypertension I10 [facility] [id number] [place] [address] 73870- 5100 Oct, [facility] [id number] [place] [address] [id number] Oct, Dental examination Z01.20 [facility] [address] [id number], [place] [address]- 6312 Sep, [facility] [address] [id number], [place] [address]- 7233 Sep, [facility] [address] [id number], [place] [address]- 7499 Aug, Essential (primary) hypertension I10 [facility] [address] [id number], [place] [address]- 3547 Aug, [facility] [id number] 3722 Aug, [facility] [id number], [place] [address]- 1358 July, Essential (primary) hypertension I10 [facility] [id number] [place] [address] 50529- 7374 July, Essential (primary) hypertension I10 and Type 2 diabetes mellitus without complications E11.9 [facility] [id number] [place] [address] 42565- 1707 July, [facility] [id number] [place] [address] 85376- 4847 14 Jun, 2015 GERD (gastroesophageal reflux disease) K21.9 [facility] [id number] [place] [address] 92567- 2213 Jun, GERD (gastroesophageal reflux disease) K21.9 [facility] [id number] [place] [address] 42621- 4352 08 Jun, 2015 [facility] [id number] [place] [address] 05383- 1985 Jun, Neuropathy G62.9 [facility] [id number] [place] [address] 61300- 3312 May, Essential (primary) hypertension I10 [facility] [id number] [place] [address] 06938 -8321 23 May, 2015 Bronchitis J40 [facility] [id number] [place] [address] 14293- 5774 15 May, 2015 Type 2 diabetes mellitus without complications E11.9 and Essential (primary) hypertension I10 [facility] [id number] [place] [address] 03942- 2024 10 May, 2015 [facility] [id number] [place] [address] 30137- 0110 10 May, 2015 GERD (gastroesophageal reflux disease) K21.9 [facility] [id number] [place] [address] 20135- 4425 25 Apr, 2015 Other and unspecified hyperlipidemia 272.4 ; Unspecified essential hypertension 401.9 ; Type 2 diabetes mellitus without complications E11.9 ; Neck pain M54.2 and Paresthesias in right hand R20.2 [facility] [address], [place] [address]- 5797 Apr, [facility] [id number] [place] [address] 80712- 4470 Apr, Neuropathy G62.9 [facility] [id number] [place] [address] 40491- 4832 Mar, [facility] [id number] [place] [address] 49759- 6335 Feb, [facility] [id number] [place] [address] 68124- 6090 Jan, [facility] [id number] [place] [address] 23827- 5262 Dec, [facility] [id number] [place] [address] 00882- 2744 Dec, Type 2 diabetes mellitus without complications E11.9 ; Encounter for immunization Z23 and Neck pain M54.2 [facility] [id number] [place] [address] 26737- 8904 Dec, [facility] [id number] [place] [address] 56063- 7462 Nov, [facility] [address] [place] [address] 99052- 3063 Nov, [facility] [address] [place] [address] 29994- 1826 Oct, [facility] [address] [place] [address] 51728- 5044 Oct, [facility] [id number] [place] [address] 30568- 8272 Sep, [facility] [address], [place] [address]- 5964 Sep, Coronary atherosclerosis of unspecified type of vessel, lovelock or graft 414.00 ; Diabetes mellitus without mention of complication, type II or unspecified type, not stated as uncontrolled 250.00 ; Hyperlipidemia 272.4 and HTN (hypertension) 401.9 [facility] [address] 6788 Aug, [facility] [address], [place] [address]- 4023 July, [facility] [id number] [place] [address] 64560- 0308 Jun, [facility] [address], [place] [address]- 0109 Jun, [facility] [id number] [place] [address] 69184- 0764 May, [facility] [id number] [place] [address] 65064- 4485 May, [facility] [id number] [place] [address] 74652- 7761 May, [facility] [address], [place] [address]- 4778 May, [facility] [address], [place] [address]- 0730 Apr, [facility] [address], [place] [address]- 0523 Apr, [facility] [address], [place] [address]- 2739 Apr, [facility] [address] 9362 Apr, [facility] [address], [place] [address]- 8819 Apr, [facility] [address] 9344 Apr, [facility] [address], [place] [address]- 5205 Apr, [facility] [address] [id number] [place] [address]- 7346 Apr, [facility] [place] [facility] [address] [id number] [place] [address]- 0074 Mar, [facility] [place] [facility] [address] [id number] [place] [address]- 2952 Mar, [facility] [place] [facility] [address] [id number] [place] [address]- 9790 Mar, [facility] [place] [facility] [address] [id number] [place] [address]- 4476 Mar, [facility] [place] [facility] [address] [id number] [place] [address]- 0774 Mar, [facility] [address] [id number] [place] [address]- 6309 Mar, [facility] [place] [facility] [address] [id number] [place] [address]- 0231 Mar, [facility] [place] [facility] [address] [id number] [place] [address]- 5563 Mar, [facility] [place] [facility] [address] [id number] [place] [address]- 3080 Feb, [facility] [place] [facility] [address] [id number] [place] [address]- 1346 Feb, [facility] [place] [facility] [address] [id number], [place] [address]- 2029 Feb, [facility] [place] [facility] [address] [id number] [place] [address]- 9172 Feb, [facility] [place] [facility] [address] [id number] [place] [address]- 4694 Feb, [facility] [place] [facility] [address] [id number] [place] [address]- 0300 Feb, [facility] [place] [facility] [address] [id number] [place] [address]- 0088 Feb, [facility] [place] [facility] [address] [id number] [place] [address]- 1643 Feb, [facility] [place] [facility] [address] [id number] [place] 7686 Feb, [facility] [place] [facility] [address] [id number] [place] 1401 Feb, [facility] [place] [facility] [address] [id number] [place] [address]- 4286 Jan, [facility] [place] [facility] [address] [id number] [place] [address]- 1513 Jan, [facility] [place] [facility] [address] [id number] [place] [address]- 8964 Dec, [facility] [place] [facility] [address] [id number] [place] [address]- 1799 Dec, [facility] [place] [facility] [address] [id number] [place] [address]- 9542 Dec, [facility] [place] [facility] [address] [id number] [place] [address]- 6883 Dec, [facility] [place] [facility] [address] [id number] [place] [address]- 7447 Nov, [facility] [place] [facility] [address] [id number] [place] [address]- 6055 15 Nov, 2013 [facility] [place] [facility] [address] [id number] [place] [address]- 6496 Nov, [facility] [place] [facility] [address] [id number] [place] [address]- 8815 Nov, [facility] [place] [facility] [address] [id number] [place] [address]- 3512 Oct, [facility] [place] [facility] [address] [id number] [place] [address]- 8086 Oct, [facility] [place] [facility] [address] [id number] [place] [address]- 7676 Oct, [facility] [place] [facility] [address] [id number] [place] [address]- 6200 Oct, [facility] [place] [facility] [address] [id number] [place] [address]- 3420 Oct, [facility] [place] [facility] [address] [id number] [place] [address]- 4189 Sep, [facility] [place] [facility] [address] [id number] [place] [address]- 6412 Sep, [facility] [place] [facility] [address] [id number] [place] [address]- 8671 Sep, [facility] [place] [facility] [address] [id number] [place] [address]- 6070 Sep, [facility] [place] [facility] [address] [id number] [place] [address]- 6686 Sep, [facility] [place] [facility] [address] [id number] [place] [address]- 9804 Sep, [facility] [place] [facility] [address] [id number] [place] [address]- 8239 Aug, [facility] [place] [facility] [address] [id number], [place] [address]- 4472 Aug, [facility] [place] [facility] [address] [id number], [place] [address]- 7839 Aug, [facility] [place] [facility] [address] [id number] [place] [address]- 9870 Aug, [facility] [place] [facility] [address] [id number] [place] [address]- 9671 Aug, [facility] [place] [facility] [address] [id number] [place] [address]- 5491 Aug, [facility] [place] [facility] [address] [id number] [place] [address]- 7117 July, [facility] [place] [facility] [address] [id number] [place] [address]- 3085 July, [facility] [place] [facility] [address] [id number] [place] [address]- 9479 Jun, [facility] [place] [facility] [address] [id number] [place] [address]- 5246 Jun, [facility] [place] [facility] [address] [id number] [place] [address]- 8242 May, [facility] [place] [facility] [address] [id number] [place] [address]- 6600 May, [facility] [place] [facility] [address] [id number] [place] [address]- 0267 May, [facility] [place] [facility] [address] [id number] [place] [address]- 8546 May, [facility] [place] [facility] [address] [id number] [place] [address]- 0907 Apr, [facility] [place] [facility] [address] [id number] [place] [address]- 0599 Apr, [facility] [place] [facility] [address] [facility] [id number] [place] [address]- 6920 Apr, [facility] [place] [facility] [address] [id number] [place] [address]- 8891 Apr, [facility] [place] [facility] [address] [id number] [place] [address]- 0705 Apr, [facility] [place] [facility] [address] [id number] [place] [address]- 9017 Apr, [facility] [place] [facility] [address] [id number] [place] [address]- 2546 Feb, [facility] [place] [facility] [address] [id number] [place] [address]- 5833 Feb, [facility] [place] [facility] [address] [id number] [place] [address]- 2549 Feb, [facility] [place] [facility] [address] [id number] [place] [address]- 2546 Feb, [facility] [place] [facility] [address] [id number] [place] [address]- 2549 Jan, [facility] [place] [facility] [address] [id number] [place] [address]- 2544 Jan, [facility] [place] [facility] [address] [id number] [place] [address]- 3011 Dec, [facility] [place] [facility] [address] [id number] [place] [address]- 0736 Dec, [facility] [place] [facility] [address] [id number] [place] [address]- 3347 Dec, [facility] [place] [facility] [address] [id number], [place] [address]- 4835 Dec, [facility] [place] [facility] [address] [id number], [place] [address]- 0471 Oct, [facility] [place] [facility] [id number] [id number] Oct, [facility] [place] [facility] [id number] [address] Oct, [facility] [place] [facility] [address] [id number], [place] [address]- 2546 Oct, [facility] [place] [facility] [address] [id number], [place] [address]- 6997 Sep, [facility] [place] [facility] [address] [id number], [place] [address]- 2546 Sep, [facility] [place] [facility] [address] [id number], [place] [address]- 2546 Aug, [facility] [place] [facility] [address] [id number], [place] [address]- 7354 Aug, [facility] [address] [id number] [place] [address]- 0807 Aug, [facility] [place] [facility] [address] [id number], [place] [address]- 9996 Aug, [facility] [address] [facility] [id number] [place] [address]- 8597 July, [facility] [address] [id number] [place] [address]- 1839 Jun, [facility] [address] [id number] [place] 5684 May, [facility] [address] [id number] [place] [address]- 6282 May, [facility] [address] [facility] [id number], [place] [address]- 3507 May, [facility] [place] [facility] [address] [facility] [id number] [place] [address]- 4654 May, [facility] [address] [facility] [id number], [place] [address]- 6163 May, [facility] [address] [facility] [id number], [place] [address] Apr, [facility] [place] [facility] [address] [id number], [place] [address] Apr, [facility] [place] [facility] [address] [id number], [place] [address] Apr, [facility] [place] [facility] [address] [id number], [place] [address] Apr, [facility] [place] [facility] [address] [id number], [place] [address] Mar, [facility] [place] [facility] [address] [facility] [id number], [place] [address] Mar, [facility] [place] [facility] [address] [id number] [place] [address] Mar, [facility] [place] [facility] [address] [id number] [place] [address] Mar, [facility] [place] [facility] [address] [id number] [place] [address] Jan, [facility] [place] [facility] [address] [id number] [place] [address] Jan, [facility] [place] [facility] [address] [id number] [place] [address] Jan, [facility] [place] [facility] [address] [id number] [place] [address] Jan, [facility] [place] [facility] [address] [id number] [place] [address] Jan, [facility] [place] [facility] [address] [id number] [place] [address] Jan, [facility] [place] [facility] [address] [id number] [place] [address] Jan, [facility] [place] [facility] [address] [id number] [place] [address] Jan, [facility] [place] [facility] [address] [id number] [place] [address] Jan, [facility] [place] [facility] [address] [id number] [place] [address] Jan, [facility] [place] [facility] [address] [id number] [place] [address] Dec, [facility] [place] [facility] [address] [id number] [place] [address] Dec, [facility] [place] [facility] [address] [id number] [place] [address] Dec, [facility] [place] [facility] [address] [id number] [place] [address] Nov, [facility] [address] [facility] [id number] [place] [address] Nov, [facility] [address] [id number], [place] [address] Nov, [facility] [address] [facility] [id number], [place] [address] Nov, [facility] [address] [facility] [id number], [place] [address] Oct, [facility] [address] [facility] [id number], [place] [address] Oct, IMMUNIZATIONS No Known Immunizations SOCIAL HISTORY Never Assessed REASON FOR VISIT Controlled Med Refill PLAN OF CARE VITAL SIGNS MEDICATIONS Unknown [...]
--- OUTSIDE RECORDS SUMMARY | 2018-03-09 09:22 | XMS REPORT ---
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 245644529 Problem Type 2 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, unspecified E11.40 Active 25705377 Problem Neck pain M54.2 Active 89674079 Problem Type 2 diabetes mellitus without complications E11.9 Active 115955433 Problem GERD (gastroesophageal reflux disease) K21.9 Active 399361000 Problem Essential hypertension I10 Active 78155351 ALLERGIES No Information ENCOUNTERS Encounter Location Date Diagnosis [place] [id number] [address]- [address] Oct, [facility] [address] [place] [id number] [place] [address] 80112- 9361 Sep, [facility] [id number] [place] [address] 32917- 8591 Aug, [facility] [address] [address]- 9832 Aug, Exposure to hepatitis C Z20.5 and Routine adult health maintenance Z00.00 [facility] [address] [address] [id number] [place] [address] 61608- 6375 Aug, Exposure to hepatitis C Z20.5 [facility] [address] 00358- 5885 11 Aug, 2017 Medicare annual wellness visit, initial Z00.00 ; 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 ; Hyperlipidemia, unspecified hyperlipidemia type E78.5 ; Essential hypertension I10 ; GERD (gastroesophageal reflux disease) K21.9 ; Routine adult health maintenance Z00.00 ; Encounter for immunization Z23 ; Type 2 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, unspecified E11.40 and 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 [facility] [id number] [place] [address] 48396- 0400 30 Jul, 2017 Type 2 diabetes mellitus without complications E11.9 and Type 2 diabetes mellitus without complications E11.9 [facility] [address] [id number] [place] [address] 98260- 1034 July, [facility] [id number] [place] [address] 37850- 2832 July, [facility] [id number] [place] [address] 50073- 1626 Mar, Type 2 diabetes mellitus without complications E11.9 [facility] [address], [place] [address] 0913 Mar, [facility] [id number] [place] [address] 30983- 3234 Feb, Type 2 diabetes mellitus without complications E11.9 [facility] [address], [place] [address] 2003 Jan, Type 2 diabetes mellitus without complications E11.9 [facility] [id number] [place] [address] 06065- 4638 Jan, Type 2 diabetes mellitus without complications E11.9 [facility] [id number] [address]6 Nov, [facility] [address], [place] [address]- 9779 Oct, Type 2 diabetes mellitus without complications E11.9 [facility] [id number] [place] [address] 27054- 5095 Oct, Type 2 diabetes mellitus without complications E11.9 ; Essential hypertension I10 and Neck pain M54.2 [facility] [address] [address] [id number] [place] [address] 29103- 4912 Sep, [facility] [address] [id number] [place] [address] 35463- 8126 Aug, Type 2 diabetes mellitus without complications E11.9 [place] [id number] [place] [address] 00705- 9282 Jun, Type 2 diabetes mellitus without complications E11.9 ; Neck pain M54.2 and Essential hypertension I10 [place] [address] [place] [id number] [place] [address] 70818- 9409 17 Jun, 2016 [place] [address] [place] [id number] [place] [address] 77359- 0211 Jun, [place] [address] 42023- 9319 Jun, GERD (gastroesophageal reflux disease) K21.9 and Type 2 diabetes mellitus without complications E11.9 [place] [address] [place] [id number] [place] [address] 66233- 5916 Mar, Paresthesias in right hand R20.2 [place] [address] [place] [id number] [place] [address] 22607- 1880 Feb, Type 2 diabetes mellitus without complications E11.9 [facility] [id number] [place] [address] [id number] Feb, Encounter for dental examination Z01.20 [facility] [address] [place] [id number] [place] [address] 71942- 3235 09 Feb, 2016 Type 2 diabetes mellitus without complications E11.9 and Neck pain M54.2 [facility] [address] [id number] [place] [address] 02005- 0638 Feb, Type 2 diabetes mellitus without complications E11.9 [facility] [address] [id number] [id number] Jan, Dental examination Z01.20 [facility] [address] [id number] [place] [address] 78422- 0846 Jan, [facility] [address] [id number], [place] [address]- 0743 Jan, [facility] [address] [id number] [place] [address] [id number] Dec, Dental caries K02.9 [facility] [id number] [place] [address] 32207- 1838 Nov, [facility] [address] [facility] [id number] [place] [address] 29791- 9762 Nov, [facility] [address] [place] [id number] [place] [address] 83205- 1157 Oct, Type 2 diabetes mellitus without complications E11.9 ; Neck pain M54.2 and Essential hypertension I10 [facility] [id number] [place] [address] 68221- 8202 Oct, [facility] [address] [place] [id number] [place] [address] [id number] Oct, Dental examination Z01.20 [facility] [address], [place] [address]- 9962 Sep, [facility] [address] [facility] [id number], [place] [address]- 9308 Sep, [facility] [id number] [place] [address] 42347- 0310 Aug, Essential (primary) hypertension I10 [facility] [address] [facility] [id number] [place] [address] 55749- 9897 Aug, [facility] [address], [place] [address]- 3649 Aug, [facility] [address] [place] [id number] [place] [address] 20485- 7128 July, Essential (primary) hypertension I10 [facility] [address] [place] [id number] [place] [address] 02703- 2114 July, Essential (primary) hypertension I10 and Type 2 diabetes mellitus without complications E11.9 [facility] [address] [place] [id number] [place] [address] 57020- 2640 July, [facility] [address] [place] [address] [id number] [place] [address] 81335- 0537 Jun, GERD (gastroesophageal reflux disease) K21.9 [facility] [address] [place] [address] [id number] [place] [address] 83193- 0876 Jun, GERD (gastroesophageal reflux disease) K21.9 [facility] [address] [place] [id number] [place] [address] 27899- 3582 Jun, [facility] [address] [place] [address] [id number] [place] [address] 56749- 4781 Jun, Neuropathy G62.9 [facility] [address] [place] [id number] [place] [address] 87360- 3841 May, Essential (primary) hypertension I10 [facility] [address], [place] [address] May, Bronchitis J40 [facility] [address] [place] [id number] [place] [address] 00373- 2460 May, Type 2 diabetes mellitus without complications E11.9 and Essential (primary) hypertension I10 [facility] [address] [place] [id number] [address]- 9741 May, [facility] [address] [place] [id number] [place] [address] 53658- 0277 May, GERD (gastroesophageal reflux disease) K21.9 [facility] [address], [place] [address]- 3408 Apr, Other and unspecified hyperlipidemia 272.4 ; Unspecified essential hypertension 401.9 ; Type 2 diabetes mellitus without complications E11.9 ; Neck pain M54.2 and Paresthesias in right hand R20.2 [facility] [address] [place] [id number] [place] [address] 29610- 1760 Apr, [facility] [address] [place] [id number] [place] [address] 70241- 8420 Apr, Neuropathy G62.9 [facility] [address] [place] [id number] [place] [address] 84942- 5938 Mar, [facility] [address] [place] [id number] [place] [address] 99613- 2536 Feb, [facility] [address] [place] [id number] [place] [address] 80950- 5226 Jan, [facility] [address] [place] [id number] [place] [address] 33265- 3278 Dec, [facility] [address] [place] [id number] [place] [address] 08297- 7463 Dec, Type 2 diabetes mellitus without complications E11.9 ; Encounter for immunization Z23 and Neck pain M54.2 [facility] [address] [place] [id number] [place] [address] 79251- 3257 Dec, [facility] [address] [place] [id number] [place] [address] 21663- 8925 Nov, [facility] [address] [place] [id number] [place] [address] 66103- 5898 Nov, [facility] [address] [place] [id number] [place] [address] 11948- 3698 Oct, [facility] [address] [place] [id number] [place] [address] 26630- 1900 Oct, [facility] [address] [place] [id number] [place] [address] 40899- 2528 Sep, [facility] [address] [id number] [place] [address] 82128- 9165 Sep, Coronary atherosclerosis of unspecified type of vessel, white mountain or graft 414.00 ; Diabetes mellitus without mention of complication, type II or unspecified type, not stated as uncontrolled 250.00 ; Hyperlipidemia 272.4 and HTN (hypertension) 401.9 [facility] [address], [place] [address]- 0605 Aug, [facility] [address] [place] [id number] [place] [address] 35285- 2717 July, [facility] [address] [place] [id number] [place] [address] 88255- 3746 Jun, [facility] [address] [place] [id number] [place] [address] 76944- 9112 Jun, [facility] [address] [place] [place] [id number] [place] [address] 45295- 9172 May, [facility] [address] [place] [id number] [place] [address] 87586- 9765 May, [facility] [id number] [place] [address] 26878- 2153 May, [facility] [id number] [place] [address] 03734- 6454 May, [facility] [address], [place] [address]- 7362 Apr, [facility] [address], [place] [address]- 7245 Apr, [facility] [address] 1220 Apr, [facility] [address] [place] [id number] [place] [address] [id number]- 1689 Apr, [facility] [address], [place] [address]- 3366 Apr, [facility] [address] [place] [id number] [place] [address] 31133- 2635 Apr, [facility] [address] [id number] [place] [address]- 5307 Apr, [facility] [place] [facility] [address] [id number] [place] [address]- 7138 Apr, [facility] [place] [facility] [address] [id number] [place] [address]- 9235 Mar, [facility] [place] [facility] [address] [id number] [place] [address]- 5754 Mar, [facility] [place] [facility] [address] [id number] [place] [address]- 8764 Mar, [facility] [place] [facility] [address] [id number] [place] [address]- 4514 Mar, [facility] [place] [facility] [address] [id number], [place] [address]- 0314 Mar, [facility] [place] [facility] [address] [id number] [place] [address]- 9033 Mar, [facility] [place] [facility] [address] [id number] [place] [address]- 3199 Mar, [facility] [place] [facility] [address] [facility] [id number] [place] [address]- 0412 Mar, [facility] [place] [facility] [address] [id number], [place] [address]- 2765 Feb, [facility] [place] [facility] [address] [id number], [place] [address]- 1136 Feb, [facility] [place] [facility] [address] [id number] [place] [address]- 7469 Feb, [facility] [place] [facility] [address] [id number] [place] [address]- 5738 Feb, [facility] [place] [facility] [address] [id number] [place] [address]- 8928 Feb, [facility] [place] [facility] [address] [id number] [place] 0135 Feb, [facility] [place] [facility] [address] [id number] [place] [address]- 6949 Feb, [facility] [place] [facility] [address] [id number] [place] 8810 Feb, [facility] [place] [facility] [address] [id number] [place] 7882 Feb, [facility] [place] [facility] [address] [id number] [place] 2513 Feb, [facility] [place] [facility] [address] [id number] [place] [address]- 1590 Jan, [facility] [place] [facility] [address] [id number] [place] [address]- 6285 Jan, [facility] [place] [facility] [address] [id number] [place] [address]- 2886 Dec, [facility] [place] [facility] [address] [id number] [place] [address]- 3975 Dec, [facility] [place] [facility] [address] [id number] [place] [address]- 0366 Dec, [facility] [place] [facility] [address] [id number] [place] [address]- 8635 Dec, [facility] [place] [facility] [address] [id number] [place] [address]- 1771 Nov, [facility] [place] [facility] [address] [id number] [place] [address]- 6262 Nov, [facility] [place] [facility] [address] [id number] [place]- 6033 Nov, [facility] [place] [facility] [address] [id number] [place] [address]- 2772 Nov, [facility] [place] [facility] [address] [id number] [place] [address]- 6180 Oct, [facility] [place] [facility] [address] [id number] [place] [address]- 8796 Oct, [facility] [place] [facility] [address] [id number] [place] [address]- 0693 Oct, [facility] [place] [facility] [address] [id number] [place] [address]- 6881 Oct, [facility] [place] [facility] [address] [id number] [place] [address]- 8159 Oct, [facility] [place] [facility] [address] [id number] [place] [address]- 1949 Sep, [facility] [place] [facility] [address] [id number] [place] [address]- 7599 Sep, [facility] [place] [facility] [address] [id number] [place] [address]- 0876 Sep, [facility] [place] [facility] [address] [id number] [place] [address]- 1592 Sep, [facility] [place] [facility] [address] [id number] [place] [address]- 8059 Sep, [facility] [place] [facility] [address] [id number] [place] [address]- 5004 Sep, [facility] [place] [facility] [address] [id number], [place] [address]- 7145 Aug, [facility] [place] [facility] [address] [id number], [place] [address]- 3990 Aug, [facility] [place] [facility] [address] [id number] [place] [address]- 7955 Aug, [facility] [place] [facility] [address] [id number] [place] [address]- 5120 Aug, [facility] [place] [facility] [address] [id number] [place] [address]- 6343 Aug, [facility] [place] [facility] [address] [id number] [place] [address]- 3285 Aug, [facility] [place] [facility] [address] [id number] [place] [address]- 6872 July, [facility] [place] [facility] [address] [id number] [place] [address]- 5295 July, [facility] [place] [facility] [address] [id number] [place] [address]- 9108 Jun, [facility] [place] [facility] [address] [id number] [place] [address]- 1935 Jun, [facility] [place] [facility] [address] [id number] [place] [address]- 3696 May, [facility] [place] [facility] [address] [facility] [id number] [place] [address]- 7332 May, [facility] [place] [facility] [address] [facility] [id number] [place] [address]- 6688 May, [facility] [place] [facility] [address] [facility] [id number] [place] [address]- 2598 May, [facility] [place] [facility] [address] [id number] [place] [address]- 7681 Apr, [facility] [place] [facility] [address] [facility] [id number] [place] [address]- 2571 Apr, [facility] [place] [facility] [address] [facility] [id number] [place] [address]- 0246 Apr, [facility] [place] [facility] [address] [facility] [id number] [place] [address]- 8322 Apr, [facility] [place] [facility] [address] [id number] [place] [address]- 9065 Apr, [facility] [place] [facility] [address] [facility] [id number] [place] [address]- 6296 Apr, [facility] [place] [facility] [address] [facility] [id number] [place] [address]- 4920 Feb, [facility] [place] [facility] [address] [id number] [place] [address]- 2547 Feb, [facility] [place] [facility] [address] [id number] [place] [address]- 2546 Feb, [facility] [place] [facility] [address] [id number] [place] [address]- 2547 Feb, [facility] [place] [facility] [address] [id number] [place] [address]- 2391 Jan, [facility] [place] [facility] [address] [id number] [place] [address]- 0525 Jan, [facility] [place] [facility] [address] [id number] [place] [address]- 9858 Dec, [facility] [place] [facility] [address] [id number] [place] [address]- 7838 Dec, [facility] [place] [facility] [address] [id number], [place] [address]- 7288 Dec, [facility] [place] [facility] [address] [id number] [place] [address]- 7022 Dec, [facility] [place] [facility] [address] [id number], [place] [address]- 6642 Oct, [facility] [place] [facility] [address] [id number][place] [id number] Oct, [facility] [place] [facility] [address] [id number][place] [id number] Oct, [facility] [place] [facility] [address] [id number], [place] [address]- 2546 Oct, [facility] [place] [facility] [address] [id number], [place] [address]- 2546 Sep, [facility] [place] [facility] [address] [id number], [place] [address]- 2546 Sep, [facility] [place] [facility] [address] [id number], [place] [address]- 8452 Aug, [facility] [address] [id number] [place] [address]- 5701 Aug, [facility] [place] [facility] [address] [id number], [place] [address]- 1845 Aug, [facility] [address] [facility] [id number] [place] [address]- 3343 Aug, [facility] [place] [facility] [address] [id number] [place] [address]- 6408 July, [facility] [address] [id number] [place] [address]- 3795 Jun, [facility] [address] [facility] [id number] [place] [address]- 1704 May, [facility] [address] [facility] [id number], [place] [address]- 9909 May, [facility] [place] [facility] [address] [facility] [id number] [place] [address]- 0201 May, [facility] [address] [facility] [id number] [place] [address]- 9711 May, [facility] [place] [facility] [address] [facility] [id number] [place] [address] May, [facility] [address] [id number], [place] [address] Apr, [facility] [place] [facility] [address] [id number], [place] [address] Apr, [facility] [place] [facility] [address] [id number] [place] [address] Apr, [facility] [place] [facility] [address] [id number] [address] Apr, [facility] [place] [facility] [address] [facility] [id number] [address] Mar, [facility] [place] [facility] [address] [id number] [place] [address] Mar, [facility] [place] [facility] [address] [id number] [place] [address] Mar, [facility] [place] [facility] [address] [id number] [place] [address] Mar, [facility] [place] [facility] [address] [id number] [place] [address] Jan, [facility] [place] [facility] [address] [id number] [place] [address] Jan, [facility] [place] [facility] [address] [id number] [place] [address] Jan, [facility] [place] [facility] [address] [id number] [place] [address] Jan, [facility] [place] [facility] [address] [id number] [place] [address] Jan, [facility] [place] [facility] [address] [id number] [place] [address] Jan, [facility] [place] [facility] [address] [id number] [place] [address] Jan, [facility] [place] [facility] [address] [id number] [place] [address] Jan, [facility] [place] [facility] [address] [id number] [place] [address] Jan, [facility] [place] [facility] [address] [id number] [place] [address] Jan, [facility] [place] [facility] [address] [id number] [place] [address] Dec, [facility] [place] [facility] [address] [id number] [place] [address] Dec, [facility] [place] [facility] [address] [id number] [place] [address] Dec, [facility] [address] [facility] [id number] [place] [address] Nov, [facility] [address] [facility] [id number], [place] [address] Nov, [facility] [address] [facility] [id number], [place] [address] Nov, [facility] [address] [facility] [id number] [address] Nov, [facility] [address] [facility] [id number], [place] [address] Oct, [facility] [address] [facility] [id number], [place] [address] Oct, IMMUNIZATIONS No Known Immunizations SOCIAL HISTORY Never Assessed REASON FOR VISIT PA on Novolog Flexpen PLAN OF CARE VITAL SIGNS MEDICATIONS Medication Instructions Dosage Frequency Start Date End Date Duration Status Humalog KwikPen 100 UNIT/ML Subcutaneous 3 times a day inject 45 units, as per insulin sliding scale protocol 8h Aug, Active RESULTS No Results PROCEDURES No Known [...]
[2018-03-09 09:23] LABS: INR 1.8 (0.8-1.4); PROTHROMBIN TIME PATIENT 21.3 SEC (12.2-14.7)
--- NOTE | 2018-03-09 09:23 | Cardiac Procedure Note-CS/ASA ---
Pre-Procedure Note Pre-Op Procedure Note H&P Reviewed The H&P was reviewed, patient examined and no changes noted. Date H&P Reviewed: Mar 09, 2018 Time H&P Reviewed: 09:23 Conscious Sedation Pre-Proced Time 09:23 ASA Score 3 For ASA 3 and 4: Consider anesthesia and medical clearance. Also, for patients with a history of failed moderate sedation consider anesthesia. Airway Lungs Heart ASA score ASA 1: a normal healthy patient ASA 2: a patient with a mild systemic disease (mid diabetes, controlled hypertension, obesity x ASA 3: a patient with a severe systemic disease that limits activity (angina , COPD, prior Myocardial infarction) ASA 4: a patient with an incapacitating disease that is a constant threat to life (CHF, renal failure) ASA 5: a moribund patient not expected to survive 24 hrs. (ruptured aneurysm) ASA 6: a declared brain patient whose organs are being harvested. For emergent operations, add the letter E after the classification Mallampati Classification Grade 3 Sedation Plan Analgesia, Amnesia, Plan communicated to team members, Discussed options with patient/fam, Discussed risks with patient/fam The patient is an appropriate candidate to undergo the planned procedure, sedation, and anesthesia. The patient immediately re-assessed prior to indication. BOOM MILLER MD Mar 09, 2018 09:23
--- OUTSIDE RECORDS SUMMARY | 2018-03-09 09:23 | XMS REPORT ---
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 Active 171226650 Problem Type 2 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, unspecified E11.40 Active 90238621 Problem Neck pain M54.2 Active 36686422 Problem Type 2 diabetes mellitus without complications E11.9 Active 402510944 Problem GERD (gastroesophageal reflux disease) K21.9 Active 988853813 Problem Essential hypertension I10 Active 27639129 ALLERGIES No Information ENCOUNTERS Encounter Location Date Diagnosis [place] [id number] [place] [address] 23128- 3668 Aug, Exposure to hepatitis C Z20.5 and Routine adult health maintenance Z00.00 [place] [address] [place] [id number] [place] [address] 12623- 8226 Aug, Exposure to hepatitis C Z20.5 [place] [address] [place] [id number] [place] [address] 59038- 9451 11 Aug, 2017 Medicare annual wellness visit, initial Z00.00 ; Coronary artery disease involving [place] coronary artery of [place] heart without angina pectoris I25.10 ; Hyperlipidemia, unspecified hyperlipidemia type E78.5 ; Essential hypertension I10 ; GERD (gastroesophageal reflux disease) K21.9 ; Routine adult health maintenance Z00.00 ; Encounter for immunization Z23 ; Type 2 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, unspecified E11.40 and 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 [facility] [address] [address] July, Type 2 diabetes mellitus without complications E11.9 and Type 2 diabetes mellitus without complications E11.9 [facility] [address] [address] July, [facility] [address] [id number] [place] [address] 60825- 6916 July, [facility] [id number] [place] [address] 79735- 6394 Mar, Type 2 diabetes mellitus without complications E11.9 [facility] [address] [place] [id number] [place] [address] 88478- 8209 Mar, [facility] [address] [address] 3[address] Feb, Type 2 diabetes mellitus without complications E11.9 [facility] [address] [address] 7085 Jan, Type 2 diabetes mellitus without complications E11.9 [facility] [address] [address] 1221 Jan, Type 2 diabetes mellitus without complications E11.9 [facility] [address] [address] 3597 Nov, [facility] [address] [address] 1528 Oct, Type 2 diabetes mellitus without complications E11.9 [facility] [address], [place] [address] 6025 Oct, Type 2 diabetes mellitus without complications E11.9 ; Essential hypertension I10 and Neck pain M54.2 [facility] [address] [address] 8632 Sep, [facility] [id number] [address]- 4812 05 Aug, 2016 Type 2 diabetes mellitus without complications E11.9 [facility] [id number] [place] [address] 56583- 4542 20 Jun, 2016 Type 2 diabetes mellitus without complications E11.9 ; Neck pain M54.2 and Essential hypertension I10 [facility] [address] [address]- 0282 17 Jun, 2016 [facility] [address] [id number] [place] [address] 18266- 1701 14 Jun, 2016 [facility] [id number] [place] [address] 30191- 8111 10 Jun, 2016 GERD (gastroesophageal reflux disease) K21.9 and Type 2 diabetes mellitus without complications E11.9 [facility] [id number] [place] [address] 69008- 8090 10 Mar, 2016 Paresthesias in right hand R20.2 [facility] [address] [id number] [place] [address] 92345- 5720 Feb, Type 2 diabetes mellitus without complications E11.9 [facility] [address] [id number] [place] [address] [id number] Feb, Encounter for dental examination Z01.20 [facility] [address] [id number] [place] [address] 05877- 9564 Feb, Type 2 diabetes mellitus without complications E11.9 and Neck pain M54.2 [facility] [id number] [place] [address] 50512- 6235 Feb, Type 2 diabetes mellitus without complications E11.9 [facility] [id number] [place] [address] [id number] Jan, Dental examination Z01.20 [facility] [id number] [place] [address] 03677- 5451 Jan, [facility] [address] [id number] [place] [address] 40335- 5361 Jan, [facility] [address] [id number] Dec, Dental caries K02.9 [facility] [address] [id number] [place] [address] 75088- 6556 Nov, [facility] [address] [id number] [place] [address] 877045- 6364 Nov, [facility] [address] [id number] [place] [address] 12918- 3615 Oct, Type 2 diabetes mellitus without complications E11.9 ; Neck pain M54.2 and Essential hypertension I10 [facility] [address] [id number] [place] [address] 689226- 2473 Oct, [facility] [address] [place] [id number] [id number] Oct, Dental examination Z01.20 [facility] [address] [id number] [place] [address] 12851- 6075 Sep, [facility] [address] [place] [id number] [place] [address] 25392- 3306 Sep, [facility] [id number] [place] [address] 90983- 8464 Aug, Essential (primary) hypertension I10 [facility] [address], [place] [address]- 1512 Aug, [facility] [address], [place] [address]- 9125 Aug, [facility] [address], [place] [address]- 3584 July, Essential (primary) hypertension I10 [facility] [address], [place] [address]- 5681 July, Essential (primary) hypertension I10 and Type 2 diabetes mellitus without complications E11.9 [facility] [address] [place] [address] 98834- 7129 July, [facility] [id number] [place] [address] 57875- 4282 14 Jun, 2015 GERD (gastroesophageal reflux disease) K21.9 [facility] [address] [id number] [place] [address] 62414- 6287 11 Jun, 2015 GERD (gastroesophageal reflux disease) K21.9 [facility] [address] [id number] [place] [address] 92638- 8084 08 Jun, 2015 [facility] [address] [id number] [place] [address] 71670- 8639 Jun, Neuropathy G62.9 [facility] [address] [place] [id number] [place] [address] 69672- 9727 May, Essential (primary) hypertension I10 [facility] [address] [id number] [place] [address] 80434 -7586 May, Bronchitis J40 [facility] [address] [id number] [place] [address] 34617- 0841 15 May, 2015 Type 2 diabetes mellitus without complications E11.9 and Essential (primary) hypertension I10 [facility] [address] [id number] [place] [address] 11328- 5779 May, [facility] [address] [id number] [place] [address] 51953- 1703 10 May, 2015 GERD (gastroesophageal reflux disease) K21.9 [facility] [address] [id number] [place] [address] 80980- 1545 25 Apr, 2015 Other and unspecified hyperlipidemia 272.4 ; Unspecified essential hypertension 401.9 ; Type 2 diabetes mellitus without complications E11.9 ; Neck pain M54.2 and Paresthesias in right hand R20.2 [facility] [address] [id number] [place] [address] 22908- 3444 11 Apr, 2015 [facility] [address] [id number] [place] [address] 53669- 3344 Apr, Neuropathy G62.9 [facility] [id number] [place] [address] 30286- 9616 Mar, [facility] [address] [id number] [place] [address] 96090- 0946 Feb, [facility] [address] [id number] [place] [address] 71152- 7660 Jan, [facility] [address] 79540- 6055 Dec, [facility] [address] [id number] [place] [address] 89119- 4440 Dec, Type 2 diabetes mellitus without complications E11.9 ; Encounter for immunization Z23 and Neck pain M54.2 [facility] [address] [id number] [place] [address] 66455- 6115 Dec, [facility] [id number] [place] [address] 31847- 0354 Nov, [facility] [id number] [place] [address] 99924- 3041 Nov, [facility] [address] [id number] [place] [address] 53956- 1239 Oct, [facility] [id number] [place] [address] 92923- 6366 Oct, [facility] [id number] [place] [address] 61692- 8817 Sep, [facility] [id number] [place] [address] 16223- 0253 Sep, Coronary atherosclerosis of unspecified type of vessel, [place] or graft 414.00 ; Diabetes mellitus without mention of complication, type II or unspecified type, not stated as uncontrolled 250.00 ; Hyperlipidemia 272.4 and HTN (hypertension) 401.9 [facility] [id number] [place] [address] 00210- 6412 Aug, [facility] [place] [facility] [address] [id number] [place] [address]- 1247 July, [facility] [place] [facility] [address] [id number] [place] [address]- 6534 14 Jun, 2014 [facility] [place] [facility] [address] [id number] [place] [address]- 0690 Jun, [facility] [place] [facility] [address] [id number] [place] [address]- 5249 May, [facility] [place] [facility] [address] [id number] [place] [address]- 0696 May, [facility] [place] [facility] [address] [id number] [place] [address]- 7380 May, [facility] [place] [facility] [address] [facility] [id number] [place] [address]- 8810 May, [facility] [place] [facility] [address] [id number] [place] [address]- 8460 Apr, [facility] [place] [facility] [address] [id number] [place] [address]- 2252 Apr, [facility] [place] [facility] [address] [facility] [id number] [place] [address]- 2322 Apr, 2014 [facility] [place] [facility] [address] [facility] [id number] [place] [address]- 3957 Apr, 2014 [facility] [place] [facility] [address] [id number], [place] [address]- 1085 Apr, 2014 [facility] [place] [facility] [address] [facility] [id number] [place] [address]- 0154 Apr, [facility] [place] [facility] [address] [id number] [place] 5043 Apr, [facility] [place] [facility] [address] [facility] [id number], [place] [address]- 8060 Apr, 2014 [facility] [place] [facility] [address] [facility] [id number] [address]- 0188 Mar, [facility] [address] [id number] [place] [address]- 5568 Mar, [facility] [place] [facility] [address] [id number] [place] [address]- 9001 Mar, [facility] [place] [facility] [address] [id number] [place] [address]- 2641 Mar, [facility] [place] [facility] [address] [id number] [place] [address]- 5522 Mar, [facility] [place] [facility] [address] [id number] [place] [address]- 1562 Mar, [facility] [place] [facility] [address] [id number] [place] [address]- 4558 Mar, [facility] [address] [id number] [place] [address]- 3690 Mar, [facility] [place] [facility] [address] [id number] [place] [address]- 7605 Feb, [facility] [place] [facility] [address] [id number] [place] [address]- 1418 Feb, [facility] [place] [facility] [address] [facility] [id number] [place] [address]- 0564 Feb, [facility] [place] [facility] [address] [id number] [place] [address]- 4080 Feb, [facility] [place] [facility] [address] [id number] [place] [address]- 6543 Feb, [facility] [place] [facility] [address] [id number] [place] [address]- 8570 Feb, [facility] [place] [facility] [address] [id number] [place] [address]- 3487 Feb, [facility] [place] [facility] [address] [id number] [place] [address]- 1736 Feb, [facility] [place] [facility] [address] [id number] [place] [address]- 9143 Feb, [facility] [place] [facility] [address] [id number] [place] 2471 Feb, [facility] [place] [facility] [address] [id number] [place] [address]- 5433 Jan, [facility] [place] [facility] [address] [id number] [place] [address]- 8938 Jan, [facility] [place] [facility] [address] [id number] [place] [address]- 1887 Dec, [facility] [place] [facility] [address] [id number] [place] [address]- 1297 Dec, [facility] [place] [facility] [address] [id number] [place] [address]- 2332 Dec, [facility] [place] [facility] [address] [id number] [place] [address]- 2267 Dec, [facility] [place] [facility] [address] [id number] [place] [address]- 8296 Nov, [facility] [place] [facility] [address] [id number] [place] [address]- 3612 Nov, [facility] [place] [facility] [address] [id number] [place] [address]- 4902 Nov, [facility] [place] [facility] [address] [id number] [place] [address]- 6784 Nov, [facility] [place] [facility] [address] [id number] [place] [address]- 6682 Oct, [facility] [place] [facility] [address] [id number] [place] 7998 Oct, [facility] [place] [facility] [address] [id number] [place] [address]- 9071 Oct, [facility] [place] [facility] [address] [id number] [place] [address]- 4821 Oct, [facility] [place] [facility] [address] [id number] [place] [address]- 5097 Oct, [facility] [place] [facility] [address] [id number] [place] [address]- 5886 Sep, [facility] [place] [facility] [address] [id number] [place] [address]- 2612 Sep, [facility] [place] [facility] [address] [id number] [place] [address]- 0727 Sep, [facility] [place] [facility] [address] [id number] [place] [address]- 7409 Sep, [facility] [place] [facility] [address] [id number] [place] [address]- 4637 Sep, [facility] [place] [facility] [address] [id number] [place] [address]- 1713 Sep, [facility] [place] [facility] [address] [id number] [place] [address]- 0310 Aug, [facility] [place] [facility] [address] [id number] [place] [address]- 9285 Aug, [facility] [place] [facility] [address] [id number] [place] [address]- 0699 Aug, [facility] [place] [facility] [address] [id number], [place] [address]- 8841 Aug, [facility] [place] [facility] [address] [id number], [place] [address]- 4829 Aug, [facility] [place] [facility] [address] [id number] [place] [address]- 3642 Aug, [facility] [place] [facility] [address] [id number] [place] [address]- 3596 July, [facility] [place] [facility] [address] [id number] [place] [address]- 9014 July, [facility] [place] [facility] [address] [id number] [place] [address]- 1998 15 Jun, 2013 [facility] [place] [facility] [address] [id number] [place] [address]- 9226 15 Jun, 2013 [facility] [place] [facility] [address] [id number] [place] 7694 11 May, 2013 [facility] [place] [facility] [address] [id number] [place] [address]- 0031 11 May, 2013 [facility] [place] [facility] [address] [id number] [place] [address]- 2696 07 May, 2013 [facility] [place] [facility] [address] [id number] [place] [address]- 4409 07 May, 2013 [facility] [place] [facility] [address] [id number] [place] [address]- 9204 10 Apr, 2013 [facility] [place] [facility] [address] [facility] [id number] [place] [address]- 2382 10 Apr, 2013 [facility] [place] [facility] [address] [facility] [id number] [place] [address]- 7666 10 Apr, 2013 [facility] [place] [facility] [address] [facility] [id number] [place] [address]- 6005 10 Apr, 2013 [facility] [place] [facility] [address] [facility] [id number] [place] [address]- 8673 03 Apr, 2013 [facility] [place] [facility] [address] [facility] [id number] [place] [address]- 8270 03 Apr, 2013 [facility] [place] [facility] [address] [id number] [place] [address]- 8006 Feb, [facility] [place] [facility] [address] [id number] [place] [address]- 8615 Feb, [facility] [place] [facility] [address] [facility] [id number] [place] [address]- 1536 Feb, [facility] [place] [facility] [address] [facility] [id number] [place] [address]- 2428 Feb, [facility] [place] [facility] [address] [id number] [place] [address]- 5200 Jan, [facility] [place] [facility] [address] [id number] [place] [address]- 2546 Jan, [facility] [place] [facility] [address] [id number] [place] [address]- 2543 Dec, [facility] [place] [facility] [address] [id number] [place] [address]- 2546 Dec, [facility] [place] [facility] [address] [id number] [place] [address]- 5161 Dec, [facility] [place] [facility] [address] [id number] [place] [address]- 2626 Dec, [facility] [place] [facility] [address] [id number] [place] [address]- 2546 Oct, [facility] [place] [facility] [address] [id number] [address] Oct, [facility] [place] [facility] [address] [id number][place] [address] Oct, [facility] [place] [facility] [address] [id number], [place] [address]- 2546 Oct, [facility] [place] [facility] [address] [id number], [place] [address]- 2546 Sep, [facility] [place] [facility] [address] [id number], [place] [address]- 2546 Sep, [facility] [place] [facility] [address] [id number], [place] [address]- 2548 Aug, [facility] [place] [facility] [address] [id number], [place] [address]- 2546 Aug, [facility] [place] [facility] [address] [id number], [place] [address]- 2546 Aug, [facility] [place] [facility] [address] [id number], [place] [address]- 9384 05 Aug, 2012 [facility] [address] [id number] [place] [address]- 7158 July, [facility] [address] [id number] [place] [address]- 6619 16 Jun, 2012 [facility] [address] [facility] [id number] [place] [address]- 8941 May, [facility] [address] [id number] [place] [address] May, [facility] [address] [id number] [place] [address] May, [facility] [address] [facility] [id number] [place] [address] May, [facility] [id number] [address] May, [facility] [address] [facility] [id number] [place] [address] Apr, [facility] [address] [facility] [id number] [place] [address] Apr, [facility] [address] [facility] [id number] [place] [address] Apr, [facility] [address] [facility] [id number] [place] [address] Apr, [facility] [place] [facility] [address] [id number], [place] [address] Mar, [facility] [place] [facility] [address] [id number], [place] [address] Mar, [facility] [place] [facility] [address] [id number], [place] [address] Mar, [facility] [place] [facility] [address] [facility] [id number] [address] Mar, [facility] [place] [facility] [address] [id number] [place] [address] 16 Jan, 2012 [facility] [place] [facility] [address] [id number] [place] [address] 16 Jan, 2012 [facility] [place] [facility] [address] [id number] [place] [address] 15 Jan, 2012 [facility] [place] [facility] [address] [id number] [place] [address] 15 Jan, 2012 [facility] [place] [facility] [address] [id number] [place] [address] Jan, [facility] [place] [facility] [address] [id number] [place] [address] Jan, [facility] [place] [facility] [address] [id number] [place] [address] Jan, [facility] [place] [facility] [address] [id number] [place] [address] Jan, [facility] [place] [facility] [address] [id number] [place] [address] Jan, [facility] [place] [facility] [address] [id number] [place] [address] Jan, [facility] [place] [facility] [address] [facility] [id number] [place] [address] Dec, [facility] [place] [facility] [address] [id number] [place] [address] Dec, [facility] [place] [facility] [address] [id number] [place] [address] Dec, [facility] [place] [facility] [address] [id number] [place] [address] Nov, [facility] [place] [facility] [address] [id number] [place] [address] 26 Nov, 2011 [facility] [place] [facility] [address] [id number] [place] [address] Nov, [facility] [address] [facility] [id number] [place] [address] Nov, [facility] [address] [facility] [id number] [place] [address] Oct, [facility] [address] [facility] [id number] [place] [address] Oct, IMMUNIZATIONS No Known Immunizations SOCIAL HISTORY [...]
--- OUTSIDE RECORDS SUMMARY | 2018-03-09 09:24 | XMS REPORT ---
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5 and Routine adult health maintenance Z00.00 [place] [id number] [place] [address] 28172- 0545 Aug, Exposure to hepatitis C Z20.5 [place] [id number] [place] [address] 94056- 5896 11 Aug, 2017 Medicare annual wellness visit, initial Z00.00 ; Coronary artery disease involving mechoopda coronary artery of mechoopda heart without angina pectoris I25.10 ; Hyperlipidemia, unspecified hyperlipidemia type E78.5 ; Essential hypertension I10 ; GERD (gastroesophageal reflux disease) K21.9 ; Routine adult health maintenance Z00.00 ; Encounter for immunization Z23 ; Type 2 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, unspecified E11.40 and 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 [facility] [id number] [place] [address] 11805- 0386 30 Jul, 2017 Type 2 diabetes mellitus without complications E11.9 and Type 2 diabetes mellitus without complications E11.9 [facility] [id number] [place] [address] 44215- 0553 July, [facility] [id number] [place] [address] 07038- 2424 July, [facility] [id number] [place] [address] 61103- 2241 Mar, Type 2 diabetes mellitus without complications E11.9 [facility] [id number] [place] [address] 00121- 8718 Mar, [facility] [id number] [place] [address] 59005- 4072 Feb, Type 2 diabetes mellitus without complications E11.9 [facility] [id number] [place] [address] 25515- 5554 Jan, Type 2 diabetes mellitus without complications E11.9 [facility] [id number] [place] [address] 37019- 2994 Jan, Type 2 diabetes mellitus without complications E11.9 [facility] [id number] [place] [address] 80309- 9257 Nov, [facility] [id number] [place] [address] 57063- 2253 Oct, Type 2 diabetes mellitus without complications E11.9 [facility] [id number] [place] [address] 40341- 7821 Oct, Type 2 diabetes mellitus without complications E11.9 ; Essential hypertension I10 and Neck pain M54.2 [facility] [id number] [place] [address] 74184- 5535 Sep, [facility] [id number] [place] [address] 23778- 1851 05 Aug, 2016 Type 2 diabetes mellitus without complications E11.9 [facility] [id number] [place] [address] 04774- 7026 Jun, Type 2 diabetes mellitus without complications E11.9 ; Neck pain M54.2 and Essential hypertension I10 [facility] [id number] [place] [address] 63600- 0888 17 Jun, 2016 [facility] [id number] [place] [address] 97517- 8820 14 Jun, 2016 [facility] [id number] [place] [address] 33562- 5498 Jun, GERD (gastroesophageal reflux disease) K21.9 and Type 2 diabetes mellitus without complications E11.9 [facility] [id number] [place] [address] 73680- 2800 Mar, Paresthesias in right hand R20.2 [facility] [id number] [place] [address] 72023- 7066 Feb, Type 2 diabetes mellitus without complications E11.9 [facility] [id number] [place] [address] [id number] Feb, Encounter for dental examination Z01.20 [facility] [id number] [place] [address] 00387- 2759 Feb, Type 2 diabetes mellitus without complications E11.9 and Neck pain M54.2 [facility] [id number] [place] [address] 22836- 0080 Feb, Type 2 diabetes mellitus without complications E11.9 [facility] [id number] [place] [address] [id number] Jan, Dental examination Z01.20 [facility] [id number] [place] [address] 93169- 5233 Jan, [facility] [id number] [place] [address] 63854- 4186 Jan, [facility] [address] [address] Dec, Dental caries K02.9 [facility] [address] [address]- 6092 30 Nov, 2015 [facility] [address] [address]- 0553 Nov, [facility] [address] [address]- 3709 Oct, Type 2 diabetes mellitus without complications E11.9 ; Neck pain M54.2 and Essential hypertension I10 [facility] [address] 9616 Oct, [facility] [address] [address] Oct, Dental examination Z01.20 [facility] [address] [address]- 5555 Sep, [facility] [address] [address]- 0995 Sep, [facility] [address] [address]- 1793 Aug, Essential (primary) hypertension I10 [facility] [address] [address]- 2567 Aug, [facility] [address] [address] 1955 Aug, [facility] [address] [address]- 4977 July, Essential (primary) hypertension I10 [facility] [address] [address]- 8439 July, Essential (primary) hypertension I10 and Type 2 diabetes mellitus without complications E11.9 [facility] [address] [address]- 5979 July, [facility] [id number] [place] [address] 76508- 0989 14 Jun, 2015 GERD (gastroesophageal reflux disease) K21.9 [facility] [id number] [place] [address] 13259- 7775 Jun, GERD (gastroesophageal reflux disease) K21.9 [facility] [id number] [place] [address] 54725- 5951 08 Jun, 2015 [facility] [id number] [place] [address] 75868- 6211 Jun, Neuropathy G62.9 [facility] [id number] [place] [address] 39144- 8073 May, Essential (primary) hypertension I10 [facility] [id number] [place] [address] 65325 -5178 May, Bronchitis J40 [facility] [id number] [place] [address] 99242- 1507 May, Type 2 diabetes mellitus without complications E11.9 and Essential (primary) hypertension I10 [facility] [address] [address]- 5894 May, [facility] [id number] [place] [address] 42021- 9669 May, GERD (gastroesophageal reflux disease) K21.9 [facility] [id number] [place] [address] 31144- 3808 25 Apr, 2015 Other and unspecified hyperlipidemia 272.4 ; Unspecified essential hypertension 401.9 ; Type 2 diabetes mellitus without complications E11.9 ; Neck pain M54.2 and Paresthesias in right hand R20.2 [facility] [address] [address]- 8101 Apr, [facility] [id number] [place] [address] 19365- 9579 Apr, Neuropathy G62.9 [facility] [id number] [place] [address] 87314- 8979 Mar, [facility] [id number] [place] [address] 12109148- 0613 Feb, [facility] [address] 85273- 1280 Jan, [facility] [address] 33514- 2040 Dec, [facility] [address] 59257- 2344 Dec, Type 2 diabetes mellitus without complications E11.9 ; Encounter for immunization Z23 and Neck pain M54.2 [facility] [id number] [place] [address] 46041- 8700 Dec, [facility] [id number] [place] [address] 79211- 5967 Nov, [facility] [id number] [place] [address] 17523- 7349 Nov, [facility] [id number] [place] [address] 32676- 1920 Oct, [facility] [id number] [place] [address] 07955- 2327 Oct, [facility] [id number] [place] [address] 85525- 7382 Sep, [facility] [id number] [place] [address] 16813- 5702 Sep, Coronary atherosclerosis of unspecified type of vessel, mechoopda or graft 414.00 ; Diabetes mellitus without mention of complication, type II or unspecified type, not stated as uncontrolled 250.00 ; Hyperlipidemia 272.4 and HTN (hypertension) 401.9 [facility] [id number] [place] [address] 34163- 3436 Aug, [facility] [place] [facility] [address] [id number] [place] [address]- 4763 July, [facility] [place] [facility] [address] [id number] [place] [address]- 2087 Jun, [facility] [place] [facility] [address] [facility] [id number] [place] [address]- 4256 Jun, [facility] [place] [facility] [address] [facility] [id number] [place] [address]- 7487 May, [facility] [place] [facility] [address] [id number] [place] [address]- 6804 May, [facility] [place] [facility] [address] [facility] [id number] [place] [address]- 7732 May, [facility] [place] [facility] [address] [facility] [id number] [place] [address]- 9750 May, [facility] [place] [facility] [address] [facility] [id number] [address]- 3541 Apr, [facility] [place] [facility] [address] [facility] [id number] [place] [address]- 9801 Apr, [facility] [place] [facility] [address] [facility] [id number][place] [address]- 1447 Apr, [facility] [place] [facility] [address] [facility] [id number], [place] [address]- 9719 Apr, 2014 [facility] [place] [facility] [address] [facility] [id number], [place] [address]- 8935 Apr, [facility] [place] [facility] [address] [facility] [id number] [place] [address]- 5024 Apr, [facility] [place] [facility] [address] [facility] [id number], [place] [address]- 6576 Apr, [facility] [place] [facility] [id number] [address]- 7943 Apr, [facility] [place] [facility] [address] [id number] [place] [address]- 6782 Mar, [facility] [place] [facility] [address] [id number] [place] [address]- 8669 Mar, [facility] [place] [facility] [address] [id number] [place] [address]- 8457 Mar, [facility] [place] [facility] [address] [id number] [place] [address]- 9929 Mar, [facility] [place] [facility] [address] [id number] [place] [address]- 5586 Mar, [facility] [place] [facility] [address] [id number] [place] [address]- 4835 Mar, [facility] [place] [facility] [address] [id number] [place] [address]- 7288 Mar, [facility] [place] [facility] [address] [id number] [place] [address]- 3293 Mar, [facility] [place] [facility] [address] [id number] [place] [address]- 0302 Feb, [facility] [place] [facility] [address] [id number] [place] [address]- 9548 Feb, [facility] [place] [facility] [address] [id number] [place] [address]- 6593 Feb, [facility] [place] [facility] [address] [id number] [place] [address]- 1498 Feb, [facility] [place] [facility] [address] [id number] [place] [address]- 2418 Feb, [facility] [place] [facility] [address] [id number] [place] [address]- 1098 Feb, [facility] [place] [facility] [address] [id number] [place] [address]- 6715 Feb, [facility] [place] [facility] [address] [id number] [place] [address]- 8010 Feb, [facility] [place] [facility] [address] [id number] [place] [address]- 4803 Feb, [facility] [place] [facility] [address] [id number] [place] [address]- 6152 Feb, [facility] [place] [facility] [address] [facility] [id number] [place] [address]- 9264 Jan, [facility] [place] [facility] [address] [id number] [place] [address]- 0891 Jan, [facility] [place] [facility] [address] [id number] [place] 3563 Dec, [facility] [place] [facility] [address] [id number] [place] [address]- 4562 Dec, [facility] [place] [facility] [address] [id number] [place] [address]- 5970 Dec, [facility] [place] [facility] [address] [id number] [place] [address]- 7914 Dec, [facility] [place] [facility] [address] [id number] [place] [address]- 4182 Nov, [facility] [place] [facility] [address] [id number] [place] [address]- 1624 Nov, [facility] [place] [facility] [address] [id number] [place] [address]- 0132 Nov, [facility] [place] [facility] [address] [id number], [place] [address]- 2001 Nov, [facility] [place] [facility] [address] [id number] [place] [address]- 1707 Oct, [facility] [place] [facility] [address] [id number] [place] [address]- 8963 Oct, [facility] [place] [facility] [address] [id number] [place] [address]- 7504 Oct, [facility] [place] [facility] [address] [id number] [place] [address]- 9243 Oct, [facility] [place] [facility] [address] [id number] [place] [address]- 7450 Oct, [facility] [place] [facility] [address] [id number] [place] [address]- 8358 Sep, [facility] [place] [facility] [address] [id number] [place] [address]- 3698 Sep, [facility] [place] [facility] [address] [id number] [place] [address]- 9974 Sep, [facility] [place] [facility] [address] [id number] [place] [address]- 6868 Sep, [facility] [place] [facility] [address] [id number] [place] [address]- 2463 Sep, [facility] [place] [facility] [address] [id number] [place] [address]- 0984 Sep, [facility] [place] [facility] [address] [id number] [place] [address]- 4149 Aug, [facility] [place] [facility] [address] [id number] [place] [address]- 1095 Aug, [facility] [place] [facility] [address] [id number] [place] [address]- 1790 Aug, [facility] [place] [facility] [address] [id number] [place] [address]- 0368 Aug, [facility] [place] [facility] [address] [id number] [place] [address]- 5984 Aug, [facility] [place] [facility] [address] [id number] [place] [address]- 1896 Aug, [facility] [place] [facility] [address] [id number] [place] [address]- 8824 July, [facility] [place] [facility] [address] [id number] [place] [address]- 8626 July, [facility] [place] [facility] [address] [id number] [place] [address]- 1815 15 Jun, 2013 [facility] [place] [facility] [address] [id number] [place] [address]- 9071 Jun, [facility] [place] [facility] [address] [id number] [place] [address]- 3502 May, [facility] [place] [facility] [address] [id number] [place] [address]- 9783 May, [facility] [place] [facility] [address] [id number] [place] [address]- 1457 May, [facility] [place] [facility] [address] [id number] [place] [address]- 7315 May, [facility] [place] [facility] [address] [facility] [id number] [place] [address]- 8244 10 Apr, 2013 [facility] [place] [facility] [address] [id number] [place] [address]- 4683 Apr, [facility] [place] [facility] [address] [id number] [place] [address]- 7520 10 Apr, 2013 [facility] [place] [facility] [address] [facility] [id number] [place] [address]- 6790 10 Apr, 2013 [facility] [place] [facility] [address] [id number] [place] [address]- 6269 Apr, [facility] [place] [facility] [address] [id number], [place] [address]- 6106 Apr, [facility] [place] [facility] [address] [id number] [place] [address]- 3776 Feb, [facility] [place] [facility] [address] [id number] [place] [address]- 2872 Feb, [facility] [place] [facility] [address] [facility] [id number] [place] [address]- 0042 Feb, [facility] [place] [facility] [address] [id number] [place] [address]- 2546 Feb, [facility] [place] [facility] [address] [id number] [place] [address] 2547 Jan, [facility] [place] [facility] [address] [id number] [place] [address]- 2546 Jan, [facility] [place] [facility] [address] [id number] [place] [address]- 2546 Dec, [facility] [place] [facility] [address] [id number] [place] [address]- 2542 Dec, [facility] [place] [facility] [address] [id number] [place] [address]- 2233 Dec, [facility] [place] [facility] [address] [id number] [place] [address]- 2546 Dec, [facility] [place] [facility] [address] [id number] [place] [address] 2546 Oct, [facility] [place] [facility] [address] [address] Oct, [facility] [place] [facility] [address] [id number] [place] [address] Oct, [facility] [place] [facility] [address] [id number] [place] [address]- 2546 Oct, [facility] [place] [facility] [address] [id number] [place] [address]- 2546 Sep, [facility] [place] [facility] [address] [id number], [place] [address]- 2546 Sep, [facility] [place] [facility] [address] [id number] [place] [address] 2545 Aug, [facility] [place] [facility] [address] [id number] [place] [address]- 2546 Aug, [facility] [place] [facility] [address] [id number] [place] [address]- 2546 Aug, [facility] [place] [facility] [address] [id number] [place] [address]- 9314 05 Aug, 2012 [facility] [address] [id number] [place] [address]- 6923 July, [facility] [place] [facility] [address] [id number] [place] [address]- 9345 Jun, [facility] [place] [facility] [address] [id number] [place] [address]- 2687 May, [facility] [place] [facility] [address] [id number] [place] [address]- 2434 May, [facility] [place] [facility] [address] [id number] [place] [address]- 6002 May, [facility] [place] [facility] [address] [id number] [place] [address]- 8115 May, [facility] [place] [facility] [address] [id number] [place] [address]- 0606 May, [facility] [place] [facility] [address] [id number] [place] [address]- 6251 Apr, [facility] [place] [facility] [address] [id number] [place] [address]- 2171 Apr, [facility] [place] [facility] [address] [id number] [place] [address]- 4726 Apr, [facility] [place] [facility] [address] [id number] [place] [address]- 2723 Apr, [facility] [place] [facility] [address] [id number] [place] 1213 Mar, [facility] [place] [facility] [address] [id number] [place] [address] Mar, [facility] [place] [facility] [address] [id number] [place] [address] Mar, [facility] [place] [facility] [address] [id number] [place] [address] Mar, [facility] [place] [facility] [address] [id number] [place] [address] Jan, [facility] [place] [facility] [address] [id number] [place] [address] [address] Jan, [facility] [place] [facility] [address] [id number] [place] [address] Jan, [facility] [place] [facility] [address] [id number] [place] [address] Jan, [facility] [place] [facility] [address] [id number] [place] [address] Jan, [facility] [place] [facility] [address] [id number] [place] [address] Jan, [facility] [place] [facility] [address] [id number] [place] [address] Jan, [facility] [place] [facility] [address] [id number] [place] [address] Jan, [facility] [place] [facility] [address] [id number] [place] [address] Jan, [facility] [place] [facility] [address] [id number] [place] [address] Jan, [facility] [place] [facility] [address] [id number] [address] Dec, [facility] [place] [facility] [address] [id number], [place] [address] Dec, [facility] [place] [facility] [address] [id number] [place] [address] Dec, [facility] [place] [facility] [address] [id number] [place] [address] Nov, [facility] [place] [facility] [address] [id number] [place] [address] 26 Nov, 2011 [facility] [place] [facility] [address] [facility] [id number] [place] [address] Nov, [facility] [address] [facility] [id number], [place] [address] Nov, [facility] [address] [facility] [id number], [place] [address] Oct, [facility] [address] [facility] [id number], [place] [address] Oct, IMMUNIZATIONS No Known Immunizations SOCIAL HISTORY Never Assessed REASON FOR VISIT Diabetes f/u-James [place] PLAN OF CARE Activity Details Follow Up 3 Months Reason: VITAL SIGNS Height 64 in 2017-03-04 Weight 206.3 lbs 2017-03-04 Temperature 98.2 degrees Fahrenheit 2017-03-04 Heart Rate 62 bpm 2017-03-04 Respiratory Rate 18 2017-03-04 BMI 35.41 kg/m2 2017-03-04 Blood pressure systolic 122 mmHg 2017-03-04 Blood pressure diastolic 64 mmHg 2017-03-04 MEDICATIONS Medication Instructions Dosage Frequency Start Date End Date Duration Status Clonidine HCl 0.1 MG Orally twice a day 1 tablet 12h Active Levemir Flexpen 100 unit/mL (3 mL) subcutaneously 2 times a day 82 Unit 12h 10 Apr, 2013 Active Lisinopril 20 mg Orally twice a day 1 tablet 12h Active Metoprolol Tartrate 100 MG Orally Once a day 1 tablet with food 24h Mar Active Pantoprazole Sodium 40 mg Orally Once a day 1 tablet 24h Jun, 30 day(s) Active Aspirin 81 mg take 1 tablet (81 mg) by oral route once daily Oct, Active Fenofibrate Micronized 134MG TAKE ONE CAPSULE BY MOUTH ONCE DAILY WITH FOOD 90 Active Hydrocodone-Acetaminophen 10-325 MG Orally every 8 hrs 1 tablet as needed 8h 07 Jan, 2017 28 days Active Neurontin 600 MG Orally Three times a day 1 tablet 8h 30 Active OneTouch Ultra Test - USE ONE STRIP TO CHECK GLUCOSE THREE TIMES DAILY 34 Active Easy Comfort Pen Earp 31G X 8 MM as directed 6h 09 Nov, 2014 Active Furosemide 40 MG Orally Once a day take 1 tablet (40 mg) by oral route once daily 24h 30 Active Insulin Detemir 100 UNIT/ML Subcutaneous Once a day 82 units 24h Jan, Active Clopidogrel Bisulfate 75 MG TAKE ONE TABLET BY MOUTH ONCE DAILY 90 Active Lipitor 40 MG TAKE ONE TABLET BY MOUTH ONCE PER DAY 90 Active NovoLog Flexpen 100 unit/ml inject 45 Unit by Subcutaneous route as per insulin sliding scale protocol 3 times per day tid AC 8h 10 Apr, 2013 Active MetFORMIN HCl ER 500MG Orally 2 times a day 2 12h 90 Active Amlodipine Besylate 10MG TAKE ONE TABLET BY MOUTH ONCE DAILY 30 Active RESULTS Name Result Date Reference Range A1C (IN HOUSE) 2017-03-04 A1C IN HOUSE 6.8 4.3 - 5.6 % Previous A1c 7.4 Lot [id number] Exp date 10/2018 PROCEDURES Procedure Date Ordered Result Body Site GLYCATED HEMOGLOBIN TEST Mar 04, 2017 [facility] VISIT ESTABLISHED PATIENT Mar 04, 2017 INSTRUCTIONS MEDICATIONS ADMINISTERED No Known Medications [...]
--- OUTSIDE RECORDS SUMMARY | 2018-03-09 09:24 | XMS REPORT ---
Author Author GEE AMADO Organization [facility] [place] Address [address] [place] [address] Care Team Providers Care Cinder Worker Name Role Phone GEE AMADO Unavailable PROBLEMS Type Condition ICD9-CM Code ZDL74-WL Code Onset Dates Condition Status SNOMED Code Problem Hyperlipidemia, unspecified hyperlipidemia type E78.5 Active 79534562 Problem GERD (gastroesophageal reflux disease) K21.9 Active 738797040 Problem Essential hypertension I10 Active 06486211 Problem Paresthesias in right hand R20.2 Active 148205628 Problem Coronary artery disease involving tanana coronary artery of tanana heart without angina pectoris I25.10 Active [id number] Problem Neck pain M54.2 Active 57390439 Problem Type 2 diabetes mellitus without complications E11.9 Active [id number] ALLERGIES No Information ENCOUNTERS Encounter Location Date Diagnosis [place] [id number] [place] [address] 66388- 1146 25 Jul, 2017 Medicare annual wellness visit, initial Z00.00 [facility] [place] [id number] [place] [address] 70169- 4826 08 Jul, 2017 [facility] [place] [id number] [place] [address] 90544- 9726 07 Jul, 2017 [facility] [place] [id number] [place] [address] 51806- 1686 Mar, Type 2 diabetes mellitus without complications E11.9 [facility] [place] [address] 43909- 9400 08 Mar, 2017 [facility] [place] [id number] [place] [address] 98783- 5737 14 Feb, 2017 Type 2 diabetes mellitus without complications E11.9 [facility] [place] [id number] [place] [address] 08814- 4082 Jan, Type 2 diabetes mellitus without complications E11.9 [facility] [place] [id number] [place] [address] 02225- 4800 Jan, Type 2 diabetes mellitus without complications E11.9 [facility] [place] [id number] [place] [address] 79474- 2713 Nov, [facility] [place] [id number] [place] [address] 88995- 7366 Oct, Type 2 diabetes mellitus without complications E11.9 [facility] [place] [id number] [place] [address] 35169- 6426 Oct, Type 2 diabetes mellitus without complications E11.9 ; Essential hypertension I10 and Neck pain M54.2 [place] [id number] [place] [address] 84245- 9081 Sep, [facility] [place] [id number] [place] [address] 71808- 4855 Aug, Type 2 diabetes mellitus without complications E11.9 [facility] [place] [id number] [place] [address] 11256- 4174 Jun, Type 2 diabetes mellitus without complications E11.9 ; Neck pain M54.2 and Essential hypertension I10 [facility] [place] [id number] [place] [address] 00473- 9734 17 Jun, 2016 [facility] [place] [id number] [place] [address] 21006- 7841 Jun, [facility] [place] [id number] [place] [address] 23533- 4855 Jun, GERD (gastroesophageal reflux disease) K21.9 and Type 2 diabetes mellitus without complications E11.9 [facility] [place] [id number] [place] [address] 42741- 3256 Mar, Paresthesias in right hand R20.2 [facility] [place] [id number] [place] [address] 95914- 2519 Feb, Type 2 diabetes mellitus without complications E11.9 [facility] [address] [id number] [id number] Feb, Encounter for dental examination Z01.20 [facility] [place] [address] [id number] [place] [address] 979084- 5922 Feb, Type 2 diabetes mellitus without complications E11.9 and Neck pain M54.2 [facility] [place] [id number] [place] [address] 768975- 4550 Feb, Type 2 diabetes mellitus without complications E11.9 [facility] [id number] [place] [address] [id number] Jan, Dental examination Z01.20 [facility] [place] [address] [id number] [place] [address] 592716- 1012 Jan, [facility] [place] [id number] [place] [address] 96247- 0349 Jan, [facility] [address] [place] [address] [id number] Dec, Dental caries K02.9 [facility] [place] [id number] [place] [address] 41974- 6014 Nov, [facility] [place] [address] [place] [address] 22880- 5857 Nov, [facility] [place] [address] [place] [address] 29721- 7270 Oct, Type 2 diabetes mellitus without complications E11.9 ; Neck pain M54.2 and Essential hypertension I10 [facility] [place] [address] [id number] [address]- 2024 Oct, [facility] [address] [place] [address] [id number] Oct, Dental examination Z01.20 [facility] [place] [address] [address]- 9710 Sep, [facility] [place] [address] [address]- 0583 Sep, [facility] [place] [id number] [place] [address] 84908- 6109 Aug, Essential (primary) hypertension I10 [facility] [place] [id number] [place] [address] 23465- 6830 Aug, [facility] [place] [id number] [place] [address] 01246- 0493 Aug, [facility] [place] [id number] [place] [address] 89231- 7780 July, Essential (primary) hypertension I10 [facility] [place] [id number] [place] [address] 36846- 0912 July, Essential (primary) hypertension I10 and Type 2 diabetes mellitus without complications E11.9 [facility] [place] [id number] [place] [address] 91096- 9086 July, [facility] [place] [id number] [place] [address] 17023- 9378 Jun, GERD (gastroesophageal reflux disease) K21.9 [facility] [place] [id number] [place] [address] 21290- 8646 Jun, GERD (gastroesophageal reflux disease) K21.9 [facility] [place] [id number] [place] [address] 40922- 9527 Jun, [facility] [place] [id number] [place] [address] 35180- 3821 Jun, Neuropathy G62.9 [facility] [place] [id number] [place] [address] 85730- 8580 May, Essential (primary) hypertension I10 [facility] [address] [address]2248 May, Bronchitis J40 [facility] [place] [id number] [place] [address] 78126- 0584 15 May, 2015 Type 2 diabetes mellitus without complications E11.9 and Essential (primary) hypertension I10 [facility] [place] [address] 93511- 3217 10 May, 2015 [facility] [place] [address] 38971- 8886 10 May, 2015 GERD (gastroesophageal reflux disease) K21.9 [facility] [place] [address] 62895- 1854 25 Apr, 2015 Other and unspecified hyperlipidemia 272.4 ; Unspecified essential hypertension 401.9 ; Type 2 diabetes mellitus without complications E11.9 ; Neck pain M54.2 and Paresthesias in right hand R20.2 [facility] [place] [address] 92759- 3720 11 Apr, 2015 [facility] [place] [address] 07920- 6019 Apr, Neuropathy G62.9 [facility] [place] [address] 13572- 8953 Mar, [facility] [place] [address] 38612- 3083 Feb, [facility] [place] [id number] [place] [address] 17088- 7190 Jan, [facility] [place] [address] 43697- 4560 Dec, [facility] [place] [id number] [place] [address] 20197- 5481 Dec, Type 2 diabetes mellitus without complications E11.9 ; Encounter for immunization Z23 and Neck pain M54.2 [facility] [place] [id number] [place] [address] 91034- 4024 09 Dec, 2014 [facility] [place] [id number] [place] [address] 55663- 0107 14 Nov, 2014 [facility] [place] [address] [address]- 6085 Nov, [facility] [place] [address] [address]- 9690 Oct, [facility] [place] [address] [address]- 4296 Oct, [facility] [place] [address] [address]- 2326 Sep, [facility] [place] [address] [address]- 7756 Sep, Coronary atherosclerosis of unspecified type of vessel, tanana or graft 414.00 ; Diabetes mellitus without mention of complication, type II or unspecified type, not stated as uncontrolled 250.00 ; Hyperlipidemia 272.4 and HTN (hypertension) 401.9 [facility] [place] [address] [address]- 6618 Aug, [facility] [place] [address] [address]- 2344 July, [facility] [place] [address] [address]- 0813 Jun, [facility] [place] [address] [address]- 3710 Jun, [facility] [place] [address] [address]- 9355 May, [facility] [place] [address] [address]- 8622 May, [facility] [place] [address] [address]- 0031 May, [facility] [place] [address] [address]- 1436 May, [facility] [place] [id number] [address]- 8046 Apr, [facility] [place] [id number] [place] [address]- 9592 Apr, 2014 [facility] [place] [facility] [address] [id number] [place] [address]- 9708 Apr, 2014 [facility] [place] [facility] [address] [id number] [place] [address]- 7649 Apr, 2014 [facility] [place] [facility] [address] [id number] [place] [address]- 1039 Apr, 2014 [facility] [place] [facility] [address] [id number] [place] [address]- 1160 Apr, 2014 [facility] [place] [facility] [address] [id number] [place] [address]- 4599 Apr, 2014 [facility] [place] [facility] [address] [id number] [place] 7326 Apr, 2014 [facility] [place] [facility] [address] [id number] [place] [address]- 1771 Mar, [facility] [place] [facility] [address] [id number] [place] [address]- 1639 Mar, [facility] [place] [facility] [address] [id number] [place] [address]- 8084 Mar, [facility] [place] [facility] [address] [id number] [place] [address]- 8114 Mar, [facility] [place] [facility] [address] [id number] [address]- 4031 Mar, [facility] [place] [facility] [address] [id number] [place] [address]- 6673 Mar, [facility] [place] [facility] [address] [id number] [place] [address]- 5942 Mar, [facility] [place] [facility] [address] [id number] [place] [address]- 1019 Mar, [facility] [place] [facility] [address] [id number] [place] [address]- 3166 Feb, [facility] [place] [facility] [address] [id number] [place] [address]- 8020 Feb, [facility] [place] [facility] [address] [id number] [place] [address]- 0506 Feb, [facility] [place] [facility] [address] [id number] [place] 2407 Feb, [facility] [place] [facility] [address] [id number] [place] 9384 Feb, [facility] [place] [facility] [address] [id number] [place] [address]- 7512 Feb, [facility] [place] [facility] [address] [id number] [place] [address]- 6990 Feb, [facility] [place] [facility] [address] [id number] [place] [address]- 2623 Feb, [facility] [place] [facility] [address] [id number] [place] [address]- 1772 Feb, [facility] [place] [facility] [address] [id number] [place] [address]- 9036 Feb, [facility] [place] [facility] [address] [id number] [place] [address]- 4878 Jan, [facility] [place] [facility] [address] [id number] [place] [address]- 0276 Jan, [facility] [place] [facility] [address] [id number] [place] [address]- 6096 Dec, [facility] [place] [facility] [address] [id number] [place] 1651 Dec, [facility] [place] [facility] [address] [id number] [place] [address]- 6333 Dec, [facility] [place] [facility] [address] [id number] [place] 4762 Dec, [facility] [place] [facility] [address] [id number] [place] [address]- 2861 15 Nov, 2013 [facility] [place] [facility] [address] [id number] [place] [address]- 0916 15 Nov, 2013 [facility] [place] [facility] [address] [id number] [place] [address]- 3534 Nov, [facility] [place] [facility] [address] [id number] [place] [address]- 9481 Nov, [facility] [place] [facility] [address] [id number] [place] [address]- 7193 Oct, [facility] [place] [facility] [address] [id number] [place] [address]- 7940 Oct, [facility] [place] [facility] [address] [id number] [place] [address]- 2002 Oct, [facility] [place] [facility] [address] [id number] [place] [address]- 8659 Oct, [facility] [place] [facility] [address] [id number] [place] [address]- 0920 Oct, [facility] [place] [facility] [address] [id number] [place] [address]- 4229 Sep, [facility] [place] [facility] [address] [id number] [place] [address]- 3163 Sep, [facility] [place] [facility] [address] [id number] [place] [address]- 6984 Sep, [facility] [place] [facility] [address] [id number] [place] [address]- 5901 Sep, [facility] [place] [facility] [address] [id number] [place] [address]- 2726 Sep, [facility] [place] [facility] [address] [id number] [place] [address]- 8951 Sep, [facility] [place] [facility] [address] [id number] [place] 8070 Aug, [facility] [place] [facility] [address] [id number] [place] [address]- 0146 Aug, [facility] [place] [facility] [address] [id number] [place] [address]- 4900 Aug, [facility] [place] [facility] [address] [id number] [place] [address]- 6065 Aug, [facility] [place] [facility] [address] [id number] [place] [address]- 6965 Aug, [facility] [place] [facility] [address] [id number] [place] [address]- 1541 Aug, [facility] [place] [facility] [address] [id number] [place] [address]- 7883 July, [facility] [place] [facility] [address] [id number] [place] [address]- 4688 July, [facility] [place] [facility] [address] [id number] [place] [address]- 9492 Jun, [facility] [place] [facility] [address] [id number] [place] [address]- 2324 Jun, [facility] [place] [facility] [address] [id number] [place] [address]- 0098 May, [facility] [place] [facility] [address] [id number] [place] [address]- 3794 May, [facility] [place] [facility] [address] [id number] [place] [address]- 7688 May, [facility] [place] [facility] [address] [id number] [place] [address]- 5430 May, [facility] [place] [facility] [address] [id number] [place] [address]- 6167 Apr, [facility] [place] [facility] [address] [id number] [place] [address]- 3802 Apr, [facility] [place] [facility] [address] [id number] [place] [address]- 6798 10 Apr, 2013 [facility] [address] [id number] [place] [address]- 6976 10 Apr, 2013 [facility] [place] [facility] [address] [id number] [place] [address]- 7366 03 Apr, 2013 [facility] [place] [facility] [address] [id number] [place] 0392 Apr, 2013 [facility] [place] [facility] [address] [id number] [place] [address]- 8646 06 Feb, 2013 [facility] [place] [facility] [address] [id number] [place] [address]- 0470 Feb, [facility] [place] [facility] [address] [id number] [place] [address]- 3081 Feb, [facility] [place] [facility] [address] [id number] [place] [address]- 4679 Feb, [facility] [place] [facility] [address] [facility] [id number] [place] [address]- 1273 Jan, [facility] [place] [facility] [address] [id number] [place] [address]- 1976 Jan, [facility] [place] [facility] [address] [facility] [id number] [place] [address]- 0692 Dec, [facility] [place] [facility] [address] [id number] [place] [address]- 3975 Dec, [facility] [place] [facility] [address] [id number] [place] [address]- 8074 Dec, [facility] [place] [facility] [address] [id number] [place] [address]- 3303 Dec, [facility] [place] [facility] [address] [facility] [id number] [place] [address]- 0757 Oct, [facility] [address] [id number] [place] [address] Oct, [facility] [address] [id number] [place] [id number] Oct, [facility] [place] [facility] [address] [id number] [place] [address] Oct, [facility] [place] [facility] [address] [id number] [place] [address] Sep, [facility] [place] [facility] [address] [id number] [place] [address] Sep, [facility] [address] [id number] [place] [address] Aug, [facility] [place] [facility] [address] [id number] [place] [address] Aug, [facility] [address] [id number] [place] [address] Aug, [facility] [address] [id number] [place] [address] Aug, [facility] [address] [id number] [place] [address] July, [facility] [address] [id number] [place] [address] Jun, [facility] [address] [id number] [place] [address] May, [facility] [place] [facility] [address] [id number] [place] [address] May, [facility] [place] [facility] [address] [id number] [place] [address] May, [facility] [place] [facility] [address] [id number] [place] [address] May, [facility] [place] [facility] [address] [id number] [place] [address] May, [facility] [place] [facility] [address] [id number] [place] [address] Apr, [facility] [address] [id number] [place] [address] Apr, [facility] [address] [id number] [place] [address] Apr, [facility] [address] [id number] [place] [address] Apr, [facility] [place] [facility] [address] [id number] [place] [address] Mar, [facility] [address] [id number] [place] [address] Mar, [facility] [address] [id number] [place] [address] Mar, [facility] [address] [id number] [place] [address] Mar, [facility] [address] [id number] [place] [address] Jan, [facility] [address] [id number] [place] [address] Jan, [facility] [address] [id number] [place] [address] Jan, [facility] [address] [id number] [address] Jan, [facility] [place] [facility] [address] [id number] [address] Jan, [facility] [place] [facility] [address] [id number] [place] [address] Jan, [facility] [place] [facility] [address] [id number] [place] [address] Jan, [facility] [place] [facility] [address] [id number] [place] [address] Jan, [facility] [place] [facility] [id number] [address] Jan, [facility] [place] [id number] [address] Jan, [facility] [place] [id number] [address] Dec, [facility] [place] [id number] [address] Dec, [facility] [place] [id number] [address] Dec, [facility] [place] [id number] [place] [address] Nov, [facility] [place] [id number] [address] Nov, [facility] [place] [id number] [place] [address] Nov, [facility] [place] [id number] [address] Nov, [facility] [place] [id number] [address] Oct, [facility] [place] [id number] [address] Oct, IMMUNIZATIONS No Known Immunizations SOCIAL HISTORY Never Assessed REASON FOR VISIT Hydrocodone- PLAN OF CARE VITAL SIGNS MEDICATIONS Medication Instructions Dosage Frequency Start Date End Date Duration Status Levemir 100 UNIT/ML Subcutaneous Once a day 82 units 24h 16 Oct, 2016 Active NovoLog Flexpen 100 unit/ml inject 45 Unit by Subcutaneous route as per insulin sliding scale protocol 3 times per day tid AC 8h Apr, Active Hydrocodone-Acetaminophen 10-325 MG Orally every 8 hrs 1 tablet as needed 8h Jan, 28 days Active RESULTS No Results PROCEDURES No Known procedures INSTRUCTIONS MEDICATIONS ADMINISTERED No Known Medications MEDICAL (GENERAL) HISTORY Type Description Date Medical History Diabetes type 2 Medical History hypertension Medical History hyperlipidemia Medical History neck fracture Jan 2014 Surgical History cholecystectomy Surgical History hysterectomy Surgical History neck surgeryafter fracturing it in 2014 Surgical History carpal tunnel surgery; right Surgical History back surgery; discectomy Surgical History Stents 2014 Hospitalization History surgeries
--- OUTSIDE RECORDS SUMMARY | 2018-03-09 09:25 | XMS REPORT ---
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 Active 832155382 Problem Type 2 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, unspecified E11.40 Active 00808745 Problem Neck pain M54.2 Active 58280056 Problem Type 2 diabetes mellitus without complications E11.9 Active 139957229 Problem GERD (gastroesophageal reflux disease) K21.9 Active 489937110 Problem Essential hypertension I10 Active 86600413 ALLERGIES No Information ENCOUNTERS Encounter Location Date Diagnosis [place] [id number] [place] [address] 88592- 9807 Aug, Exposure to hepatitis C Z20.5 and Routine adult health maintenance Z00.00 [place] [address] [place] [id number] [place] [address] 75378- 5503 Aug, Exposure to hepatitis C Z20.5 [place] [address] [address] [id number] [place] [address] 34599- 6268 11 Aug, 2017 Medicare annual wellness visit, initial Z00.00 ; Coronary artery disease involving [place] coronary artery of [place] heart without angina pectoris I25.10 ; Hyperlipidemia, unspecified hyperlipidemia type E78.5 ; Essential hypertension I10 ; GERD (gastroesophageal reflux disease) K21.9 ; Routine adult health maintenance Z00.00 ; Encounter for immunization Z23 ; Type 2 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, unspecified E11.40 and terminal gauger 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 [facility] [address] [address] 6[address] July, Type 2 diabetes mellitus without complications E11.9 and Type 2 diabetes mellitus without complications E11.9 [facility] [address] [address] 54[address] July, [facility] [id number] [place] [address] 29358- 3861 July, [facility] [id number] [place] [address] 45059- 4075 Mar, Type 2 diabetes mellitus without complications E11.9 [facility] [id number] [place] [address] 32597- 9709 Mar, [facility] [address] [address] 8723 Feb, Type 2 diabetes mellitus without complications E11.9 [facility] [address] [address]- 0292 Jan, Type 2 diabetes mellitus without complications E11.9 [facility] [address] [address] 7149 Jan, Type 2 diabetes mellitus without complications E11.9 [facility] [address] [address] 7415 Nov, [facility] [address] [address]- 8766 Oct, Type 2 diabetes mellitus without complications E11.9 [facility] [address] [address]- 1694 Oct, Type 2 diabetes mellitus without complications E11.9 ; Essential hypertension I10 and Neck pain M54.2 [facility] [address] [address]- 5698 Sep, [facility] [id number] [address] 3145 05 Aug, 2016 Type 2 diabetes mellitus without complications E11.9 [facility] [address] [place] [address] 27217- 8339 20 Jun, 2016 Type 2 diabetes mellitus without complications E11.9 ; Neck pain M54.2 and Essential hypertension I10 [facility] [address] [address]- 7258 17 Jun, 2016 [facility] [id number] [place] [address] 00634- 2164 14 Jun, 2016 [facility] [id number] [place] [address] 07258- 9083 10 Jun, 2016 GERD (gastroesophageal reflux disease) K21.9 and Type 2 diabetes mellitus without complications E11.9 [facility] [id number] [place] [address] 52465- 6109 10 Mar, 2016 Paresthesias in right hand R20.2 [facility] [id number] [place] [address] 22157- 5416 Feb, Type 2 diabetes mellitus without complications E11.9 [facility] [id number] [place] [address] [id number] Feb, Encounter for dental examination Z01.20 [facility] [id number] [place] [address] 86276- 3099 Feb, Type 2 diabetes mellitus without complications E11.9 and Neck pain M54.2 [facility] [address] [place] [address] 26643- 2131 Feb, Type 2 diabetes mellitus without complications E11.9 [facility] [address] [place] [address] [id number] Jan, Dental examination Z01.20 [facility] [id number] [place] [address] 02068- 6220 Jan, [facility] [id number] [place] [address] 60540- 5300 Jan, [facility] [address] [id number] Dec, Dental caries K02.9 [facility] [id number] [place] [address] 46941- 0796 Nov, [facility] [id number] [place] [address] 330454- 2046 Nov, [facility] [id number] [place] [address] 28459- 8075 Oct, Type 2 diabetes mellitus without complications E11.9 ; Neck pain M54.2 and Essential hypertension I10 [facility] [id number] [place] [address] 407573- 5419 Oct, [facility] [id number] [id number] Oct, Dental examination Z01.20 [facility] [id number] [place] [address] 64042- 3766 Sep, [facility] [id number] [place] [address] 07323- 5647 Sep, [facility] [address] [place] [address] 45333- 9394 Aug, Essential (primary) hypertension I10 [facility] [address] [address]- 2354 Aug, [facility] [address] [address]- 5279 Aug, [facility] [address] [address]- 5394 July, Essential (primary) hypertension I10 [facility] [address] [address]- 2815 July, Essential (primary) hypertension I10 and Type 2 diabetes mellitus without complications E11.9 [facility] [address] [place] [address] 19236- 2564 July, [facility] [address] [place] [address] 94608- 2218 14 Jun, 2015 GERD (gastroesophageal reflux disease) K21.9 [facility] [id number] [place] [address] 14854- 6973 11 Jun, 2015 GERD (gastroesophageal reflux disease) K21.9 [facility] [id number] [place] [address] 51388- 3634 08 Jun, 2015 [facility] [id number] [place] [address] 60568- 9201 Jun, Neuropathy G62.9 [facility] [id number] [place] [address] 30534- 6437 May, Essential (primary) hypertension I10 [facility] [id number] [place] [address] 83881 -1941 May, Bronchitis J40 [facility] [id number] [place] [address] 89375- 0831 15 May, 2015 Type 2 diabetes mellitus without complications E11.9 and Essential (primary) hypertension I10 [facility] [id number] [place] [address] 96108- 7698 May, [facility] [id number] [place] [address] 28230- 0642 10 May, 2015 GERD (gastroesophageal reflux disease) K21.9 [facility] [id number] [place] [address] 54080- 6176 25 Apr, 2015 Other and unspecified hyperlipidemia 272.4 ; Unspecified essential hypertension 401.9 ; Type 2 diabetes mellitus without complications E11.9 ; Neck pain M54.2 and Paresthesias in right hand R20.2 [facility] [id number] [place] [address] 91701- 3337 11 Apr, 2015 [facility] [id number] [place] [address] 77082- 6221 Apr, Neuropathy G62.9 [facility] [address] [place] [address] 84452- 4767 Mar, [facility] [id number] [place] [address] 41878- 2436 Feb, [facility] [id number] [place] [address] 23587- 2530 Jan, [facility] [address] 58079- 4018 Dec, [facility] [id number] [place] [address] 43226- 1862 Dec, Type 2 diabetes mellitus without complications E11.9 ; Encounter for immunization Z23 and Neck pain M54.2 [facility] [id number] [place] [address] 75063- 4376 Dec, [facility] [id number] [place] [address] 88459- 2537 Nov, [facility] [id number] [place] [address] 65499- 8641 Nov, [facility] [id number] [place] [address] 68870- 2247 Oct, [facility] [id number] [place] [address] 25422- 2255 Oct, [facility] [id number] [place] [address] 73594- 1028 Sep, [facility] [id number] [place] [address] 36243- 3879 Sep, Coronary atherosclerosis of unspecified type of vessel, [place] or graft 414.00 ; Diabetes mellitus without mention of complication, type II or unspecified type, not stated as uncontrolled 250.00 ; Hyperlipidemia 272.4 and HTN (hypertension) 401.9 [facility] [id number] [place] [address] 00094- 0154 Aug, [facility] [place] [facility] [address] [id number] [place] [address]- 4597 July, [facility] [place] [facility] [address] [id number] [place] [address]- 3212 14 Jun, 2014 [facility] [place] [facility] [address] [id number] [place] [address]- 7740 Jun, [facility] [place] [facility] [address] [id number] [place] [address]- 4314 May, [facility] [place] [facility] [address] [id number] [place] [address]- 6349 May, [facility] [place] [facility] [address] [id number] [place] [address]- 2853 May, [facility] [place] [facility] [address] [facility] [id number] [place] [address]- 7978 May, [facility] [place] [facility] [address] [id number] [place] [address]- 0288 Apr, [facility] [place] [facility] [address] [id number] [place] [address]- 0721 Apr, [facility] [place] [facility] [address] [facility] [id number] [place] [address]- 4744 Apr, 2014 [facility] [place] [facility] [address] [facility] [id number] [place] [address]- 7341 Apr, 2014 [facility] [place] [facility] [address] [id number] [place] [address]- 0885 Apr, 2014 [facility] [place] [facility] [address] [facility] [id number] [place] [address]- 6469 Apr, [facility] [place] [facility] [address] [id number] [place] 7723 Apr, [facility] [place] [facility] [address] [facility] [id number] [place] [address]- 4814 Apr, 2014 [facility] [place] [facility] [address] [facility] [id number] [place] [address]- 3736 Mar, [facility] [address] [id number] [place] [address]- 6871 Mar, [facility] [place] [facility] [address] [id number] [place] [address]- 9246 Mar, [facility] [place] [facility] [address] [id number] [place] [address]- 0176 Mar, [facility] [place] [facility] [address] [id number] [place] [address]- 7017 Mar, [facility] [place] [facility] [address] [id number] [place] [address]- 3341 Mar, [facility] [place] [facility] [address] [id number] [place] [address]- 3732 Mar, [facility] [address] [id number] [place] [address]- 8164 Mar, [facility] [place] [facility] [address] [id number] [place] [address]- 3042 Feb, [facility] [place] [facility] [address] [id number] [place] [address]- 6611 Feb, [facility] [place] [facility] [address] [facility] [id number] [place] [address]- 5897 Feb, [facility] [place] [facility] [address] [id number] [place] [address]- 1590 Feb, [facility] [place] [facility] [address] [id number] [place] [address]- 1256 Feb, [facility] [place] [facility] [address] [id number] [place] [address]- 5505 Feb, [facility] [place] [facility] [address] [id number] [place] [address]- 9337 Feb, [facility] [place] [facility] [address] [id number] [place] [address]- 7310 Feb, [facility] [place] [facility] [address] [id number] [place] [address]- 4144 Feb, [facility] [place] [facility] [address] [id number] [place] 6040 Feb, [facility] [place] [facility] [address] [id number] [place] [address]- 0530 Jan, [facility] [place] [facility] [address] [id number] [place] [address]- 1769 Jan, [facility] [place] [facility] [address] [id number] [place] [address]- 6107 Dec, [facility] [place] [facility] [address] [id number] [place] [address]- 5426 Dec, [facility] [place] [facility] [address] [id number] [place] [address]- 0001 Dec, [facility] [place] [facility] [address] [id number] [place] [address]- 6149 Dec, [facility] [place] [facility] [address] [id number] [place] [address]- 3423 Nov, [facility] [place] [facility] [address] [id number] [place] [address]- 0924 Nov, [facility] [place] [facility] [address] [id number] [place] [address]- 3406 Nov, [facility] [place] [facility] [address] [id number] [place] [address]- 5094 Nov, [facility] [place] [facility] [address] [id number] [place] [address]- 4446 Oct, [facility] [place] [facility] [address] [id number] [place] 1585 Oct, [facility] [place] [facility] [address] [id number] [place] [address]- 2739 Oct, [facility] [place] [facility] [address] [id number] [place] [address]- 9083 Oct, [facility] [place] [facility] [address] [id number] [place] [address]- 4253 Oct, [facility] [place] [facility] [address] [id number] [place] [address]- 0548 Sep, [facility] [place] [facility] [address] [id number] [place] [address]- 5035 Sep, [facility] [place] [facility] [address] [id number] [place] [address]- 0855 Sep, [facility] [place] [facility] [address] [id number] [place] [address]- 8701 Sep, [facility] [place] [facility] [address] [id number] [place] [address]- 7457 Sep, [facility] [place] [facility] [address] [id number] [place] [address]- 8573 Sep, [facility] [place] [facility] [address] [id number] [place] [address]- 1534 Aug, [facility] [place] [facility] [address] [id number] [place] [address]- 6783 Aug, [facility] [place] [facility] [address] [id number] [place] [address]- 0796 Aug, [facility] [place] [facility] [address] [id number] [place] [address]- 8682 Aug, [facility] [place] [facility] [address] [id number] [place] [address]- 1902 Aug, [facility] [place] [facility] [address] [id number] [place] [address]- 1310 Aug, [facility] [place] [facility] [address] [id number] [place] [address]- 6207 July, [facility] [place] [facility] [address] [id number] [place] [address]- 9159 July, [facility] [place] [facility] [address] [id number] [place] [address]- 7047 15 Jun, 2013 [facility] [place] [facility] [address] [id number] [place] [address]- 8489 15 Jun, 2013 [facility] [place] [facility] [address] [id number] [place] 5496 11 May, 2013 [facility] [place] [facility] [address] [id number] [place] [address]- 6085 11 May, 2013 [facility] [place] [facility] [address] [id number] [place] [address]- 8520 07 May, 2013 [facility] [place] [facility] [address] [id number] [place] [address]- 2525 07 May, 2013 [facility] [place] [facility] [address] [id number] [place] [address]- 7637 10 Apr, 2013 [facility] [place] [facility] [address] [facility] [id number] [place] [address]- 6712 10 Apr, 2013 [facility] [place] [facility] [address] [facility] [id number] [place] [address]- 1397 10 Apr, 2013 [facility] [place] [facility] [address] [facility] [id number] [place] [address]- 0821 10 Apr, 2013 [facility] [place] [facility] [address] [facility] [id number] [place] [address]- 3440 03 Apr, 2013 [facility] [place] [facility] [address] [facility] [id number] [place] [address]- 5856 03 Apr, 2013 [facility] [place] [facility] [address] [id number] [place] [address]- 3595 Feb, [facility] [place] [facility] [address] [id number] [place] [address]- 4342 Feb, [facility] [place] [facility] [address] [facility] [id number] [place] [address]- 5226 Feb, [facility] [place] [facility] [address] [facility] [id number] [place] [address]- 2563 Feb, [facility] [place] [facility] [address] [id number] [place] [address]- 2853 Jan, [facility] [place] [facility] [address] [id number] [place] [address]- 2546 Jan, [facility] [place] [facility] [address] [id number] [place] [address]- 2547 Dec, [facility] [place] [facility] [address] [id number] [place] [address]- 2546 Dec, [facility] [place] [facility] [address] [id number] [place] [address]- 8667 Dec, [facility] [place] [facility] [address] [id number] [place] [address]- 5216 Dec, [facility] [place] [facility] [address] [id number] [place] [address]- 2546 Oct, [facility] [place] [facility] [address] [id number] [place] [id number] Oct, [facility] [place] [facility] [address] [id number] [place] [id number] Oct, [facility] [place] [facility] [address] [id number] [place] [address]- 2546 Oct, [facility] [place] [facility] [address] [id number] [place] [address]- 2546 Sep, [facility] [place] [facility] [address] [id number] [place] [address]- 2546 Sep, [facility] [place] [facility] [address] [id number] [place] [address]- 2543 Aug, [facility] [place] [facility] [address] [id number] [place] [address]- 2546 Aug, [facility] [place] [facility] [address] [id number] [place] [address]- 2546 Aug, [facility] [place] [facility] [address] [id number] [place] [address]- 2129 05 Aug, 2012 [facility] [address] [id number] [place] [address]- 0317 July, [facility] [address] [id number] [place] [address]- 4963 16 Jun, 2012 [facility] [address] [facility] [id number] [place] [address]- 0862 May, [facility] [address] [id number] [place] [address]- 7586 May, [facility] [address] [id number] [place] [address] May, [facility] [address] [facility] [id number] [place] [address] May, [facility] [address] [id number] [place] [address] May, [facility] [address] [facility] [id number] [place] [address] Apr, [facility] [address] [facility] [id number] [place] [address] Apr, [facility] [address] [facility] [id number] [place] [address] Apr, [facility] [address] [facility] [id number] [place] [address] Apr, [facility] [place] [facility] [address] [id number] [place] [address] Mar, [facility] [place] [facility] [address] [id number] [place] [address] Mar, [facility] [place] [facility] [address] [id number] [place] [address] Mar, [facility] [place] [facility] [address] [facility] [id number] [place] Mar, [facility] [place] [facility] [address] [id number] [place] [address] 16 Jan, 2012 [facility] [place] [facility] [address] [id number] [place] [address] 16 Jan, 2012 [facility] [place] [facility] [address] [id number] [place] [address] 15 Jan, 2012 [facility] [place] [facility] [address] [id number] [place] [address] 15 Jan, 2012 [facility] [place] [facility] [address] [id number] [place] [address] Jan, [facility] [place] [facility] [address] [id number] [place] [address] Jan, [facility] [place] [facility] [address] [id number] [place] [address] Jan, [facility] [place] [facility] [address] [id number] [place] [address] Jan, [facility] [place] [facility] [address] [id number] [place] [address] Jan, [facility] [place] [facility] [address] [id number] [place] [address] Jan, [facility] [place] [facility] [address] [facility] [id number] [place] [address] Dec, [facility] [place] [facility] [address] [id number] [place] [address] Dec, [facility] [place] [facility] [address] [id number] [place] [address] Dec, [facility] [place] [facility] [address] [id number] [place] [address] Nov, [facility] [place] [facility] [address] [id number] [place] [address] 26 Nov, 2011 [facility] [place] [facility] [address] [id number] [place] [address] Nov, [facility] [address] [facility] [id number] [place] [address] Nov, [facility] [address] [facility] [id number] [place] [address] Oct, [facility] [address] [facility] [id number] [place] [address] Oct, IMMUNIZATIONS No Known Immunizations SOCIAL HISTORY Never Assessed REASON FOR VISIT Refill request PLAN OF CARE VITAL SIGNS MEDICATIONS Medication Instructions Dosage Frequency Start Date End Date Duration Status OneTouch Ultra Test - USE ONE STRIP TO CHECK GLUCOSE THREE TIMES DAILY Active RESULTS No Results PROCEDURES No Known [...]
--- OUTSIDE RECORDS SUMMARY | 2018-03-09 09:26 | XMS REPORT ---
Author Author GEE AMADO Organization [facility] Address [address] [place] [address] Care Team Providers Care Patternmaker Helper Name Role Phone GEE AMADO Unavailable PROBLEMS Type Condition ICD9-CM Code BGN74-UA Code Onset Dates Condition Status SNOMED Code Problem Hyperlipidemia, unspecified hyperlipidemia type E78.5 Active 50315797 Problem GERD (gastroesophageal reflux disease) K21.9 Active 940049497 Problem Essential hypertension I10 Active 45937597 Problem Paresthesias in right hand R20.2 Active 386156740 Problem Coronary artery disease involving big sandy coronary artery of big sandy heart without angina pectoris I25.10 Active [id number] Problem Neck pain M54.2 Active 53379245 Problem Type 2 diabetes mellitus without complications E11.9 Active 579203644 ALLERGIES No Information ENCOUNTERS Encounter Location Date Diagnosis [place] [id number] [place] [address] 28265- 5212 Jun, Medicare annual wellness visit, initial Z00.00 [place] [id number] [place] [address] 53428- 9112 10 Mar, 2017 Type 2 diabetes mellitus without complications E11.9 [place] [id number] [place] [address] 14380- 5991 08 Mar, 2017 [facility] [id number] [place] [address] 57610- 7652 Feb, Type 2 diabetes mellitus without complications E11.9 [facility] [id number] [place] [address] 94901- 3359 16 Jan, 2017 Type 2 diabetes mellitus without complications E11.9 [facility] [id number] [place] [address] 57746- 8463 Jan, Type 2 diabetes mellitus without complications E11.9 [facility] [id number] [place] [address] 06420- 5975 Nov, [facility] [id number] [place] [address] 64996- 0978 Oct, Type 2 diabetes mellitus without complications E11.9 [facility] [id number] [place] [address] 27378- 8085 Oct, Type 2 diabetes mellitus without complications E11.9 ; Essential hypertension I10 and Neck pain M54.2 [facility] [id number] [place] [address] 01031- 3763 Sep, [facility] [id number] [place] [address] 75619- 3992 Aug, Type 2 diabetes mellitus without complications E11.9 [facility] [id number] [place] [address] 07547- 1431 Jun, Type 2 diabetes mellitus without complications E11.9 ; Neck pain M54.2 and Essential hypertension I10 [facility] [id number] [place] [address] 88498- 5953 17 Jun, 2016 [facility] [id number] [place] [address] 90202- 5920 Jun, [facility] [id number] [place] [address] 16156- 7940 Jun, GERD (gastroesophageal reflux disease) K21.9 and Type 2 diabetes mellitus without complications E11.9 [facility] [address] [address] 6467 Mar, Paresthesias in right hand R20.2 [facility] [id number] [place] [address] 79811- 3142 Feb, Type 2 diabetes mellitus without complications E11.9 [facility] [address] [id number] Feb, Encounter for dental examination Z01.20 [facility] [id number] [address]- 1288 Feb, Type 2 diabetes mellitus without complications E11.9 and Neck pain M54.2 [facility] [id number] [place] [address] 310324- 6497 Feb, Type 2 diabetes mellitus without complications E11.9 [facility] [id number] [place] [address] [id number] Jan, Dental examination Z01.20 [facility] [id number] [place] [address] 76611- 2041 Jan, [facility] [address] [id number] [place] [address] 14754- 9894 Jan, [facility] [id number] [place] [address] [id number] Dec, Dental caries K02.9 [facility] [id number] [place] [address] 24273- 7727 Nov, [facility] [id number] [place] [address] 13731- 6173 Nov, [facility] [id number] [place] [address] 09501- 6084 Oct, Type 2 diabetes mellitus without complications E11.9 ; Neck pain M54.2 and Essential hypertension I10 [facility] [address] [id number] [address] 9623 Oct, [facility] [id number] [place] [address] [id number] Oct, Dental examination Z01.20 [facility] [id number] [place] [address] 95152- 0260 Sep, [facility] [id number] [place] [address] 930919- 8418 Sep, [facility] [id number] [place] [address] 17996- 4748 Aug, Essential (primary) hypertension I10 [facility] [address] [address]- 9428 Aug, [facility] [id number] [place] [address] 64803- 3155 Aug, [facility] [id number] [place] [address] 07605- 1565 July, Essential (primary) hypertension I10 [facility] [id number] [place] [address] 52971- 7998 July, Essential (primary) hypertension I10 and Type 2 diabetes mellitus without complications E11.9 [facility] [id number] [place] [address] 05006- 3338 July, [facility] [id number] [place] [address] 34431- 0617 Jun, GERD (gastroesophageal reflux disease) K21.9 [facility] [id number] [place] [address] 05493- 1830 Jun, GERD (gastroesophageal reflux disease) K21.9 [facility] [id number] [place] [address] 68688- 8281 Jun, [facility] [id number] [place] [address] 57065- 6555 Jun, Neuropathy G62.9 [facility] [id number] [place] [address] 54610- 0582 May, Essential (primary) hypertension I10 [facility] [address], [place] [address] May, Bronchitis J40 [facility] [id number] [place] [address] 97235- 6625 15 May, 2015 Type 2 diabetes mellitus without complications E11.9 and Essential (primary) hypertension I10 [facility] [address], [place] [address]- 4212 May, [facility] [id number] [place] [address] 80050- 5589 10 May, 2015 GERD (gastroesophageal reflux disease) K21.9 [facility] [id number] [place] [address] 94405- 1166 25 Apr, 2015 Other and unspecified hyperlipidemia 272.4 ; Unspecified essential hypertension 401.9 ; Type 2 diabetes mellitus without complications E11.9 ; Neck pain M54.2 and Paresthesias in right hand R20.2 [facility] [id number] [place] [address] 62759- 8048 11 Apr, 2015 [facility] [id number] [place] [address] 82374- 2992 Apr, Neuropathy G62.9 [facility] [id number] [place] [address] 67038- 0883 Mar, [facility] [address] 71053- 3341 Feb, [facility] [id number] [place] [address] 63857- 6819 Jan, [facility] [id number] [place] [address] 99835- 8481 Dec, [facility] [id number] [place] [address] 90656- 3977 Dec, Type 2 diabetes mellitus without complications E11.9 ; Encounter for immunization Z23 and Neck pain M54.2 [facility] [id number] [place] [address] 43691- 6006 Dec, [facility] [id number] [place] [address] 62659- 8666 Nov, [facility] [id number] [place] [address] 63512- 0735 Nov, [facility] [id number] [place] [address] 96716- 3035 Oct, [facility] [address], [place] [address]- 5573 Oct, [facility] [address] 5073 Sep, [facility] [address], [place] [address]- 3834 Sep, Coronary atherosclerosis of unspecified type of vessel, big sandy or graft 414.00 ; Diabetes mellitus without mention of complication, type II or unspecified type, not stated as uncontrolled 250.00 ; Hyperlipidemia 272.4 and HTN (hypertension) 401.9 [facility] [address], [place] [address]- 0249 Aug, [facility] [address], [place] [address]- 6340 July, [facility] [address], [place] [address]- 0872 Jun, [facility] [address], [place] [address]- 3053 Jun, [facility] [address], [place] [address]- 3262 May, [facility] [address], [place] [address]- 5214 May, [facility] [address], [place] [address]- 8626 May, [facility] [id number] [address]- 3677 May, [facility] [id number], [place] [address]- 9863 Apr, [facility] [id number] [address]- 4928 Apr, [facility] [id number] [address]- 0956 Apr, [facility] [address] [id number] [place] [address]- 6156 Apr, 2014 [facility] [place] [facility] [address] [id number] [place] [address]- 2733 Apr, 2014 [facility] [place] [facility] [address] [id number] [place] [address]- 6978 Apr, 2014 [facility] [place] [facility] [address] [id number] [place] [address]- 5778 Apr, 2014 [facility] [place] [facility] [address] [id number] [place] [address]- 9322 Apr, [facility] [place] [facility] [address] [id number] [place] [address]- 5589 Mar, [facility] [place] [facility] [address] [id number] [place] [address]- 4808 Mar, [facility] [place] [facility] [address] [id number] [place] [address]- 0715 Mar, [facility] [place] [facility] [address] [id number] [place] [address]- 1790 Mar, [facility] [place] [facility] [address] [id number] [place] [address]- 6339 Mar, [facility] [place] [facility] [address] [id number] [place] [address]- 0867 Mar, [facility] [place] [facility] [address] [id number], [place] [address]- 9614 Mar, [facility] [place] [facility] [address] [id number] [place] [address]- 6977 Mar, [facility] [place] [facility] [address] [id number] [place] [address]- 9879 Feb, [facility] [place] [facility] [address] [id number] [place] [address]- 0612 Feb, [facility] [place] [facility] [address] [id number] [place] [address]- 4601 Feb, [facility] [place] [facility] [address] [id number] [place] [address]- 7204 16 Feb, 2014 [facility] [place] [facility] [address] [id number] [place] 8043 Feb, [facility] [place] [facility] [address] [id number] [place] [address]- 3795 Feb, [facility] [place] [facility] [address] [id number] [place] [address]- 3873 Feb, [facility] [place] [facility] [address] [id number] [place] [address]- 8561 Feb, [facility] [place] [facility] [address] [id number] [place] [address]- 2343 Feb, [facility] [place] [facility] [address] [id number] [place] [address]- 3573 Feb, [facility] [place] [facility] [address] [id number] [place] [address]- 7620 Jan, [facility] [place] [facility] [address] [id number] [place] [address]- 1009 Jan, [facility] [place] [facility] [address] [id number] [place] [address]- 5135 Dec, [facility] [place] [facility] [address] [id number] [place] [address]- 9459 Dec, [facility] [place] [facility] [address] [id number] [place] [address]- 9961 Dec, [facility] [place] [facility] [address] [id number] [place]- 3098 Dec, [facility] [place] [facility] [address] [id number] [place] 0806 15 Nov, 2013 [facility] [place] [facility] [address] [id number] [place] [address]- 9004 15 Nov, 2013 [facility] [place] [facility] [address] [id number] [place] [address] 2545 Nov, [facility] [place] [facility] [address] [id number] [place] [address]- 8772 Nov, [facility] [place] [facility] [address] [id number] [place] [address]- 0027 Oct, [facility] [place] [facility] [address] [id number] [place] [address]- 7883 Oct, [facility] [place] [facility] [address] [id number] [place] [address]- 8894 Oct, [facility] [place] [facility] [address] [id number] [place] [address]- 5575 Oct, [facility] [place] [facility] [address] [id number] [place] [address]- 1340 Oct, [facility] [place] [facility] [address] [id number] [place] [address]- 1350 Sep, [facility] [place] [facility] [address] [id number] [place] [address]- 6079 Sep, [facility] [place] [facility] [address] [id number] [place] [address]- 1260 Sep, [facility] [place] [facility] [address] [id number] [place] [address]- 0683 Sep, [facility] [place] [facility] [address] [id number] [place] [address]- 1745 Sep, [facility] [place] [facility] [address] [id number] [place] [address]- 7357 Sep, [facility] [place] [facility] [address] [id number] [place] [address]- 7765 Aug, [facility] [place] [facility] [address] [id number] [place] [address]- 5751 Aug, [facility] [place] [facility] [address] [id number] [place] 0606 Aug, [facility] [place] [facility] [address] [id number] [place] [address]- 4652 Aug, [facility] [place] [facility] [address] [id number] [place] [address]- 6307 Aug, [facility] [place] [facility] [address] [id number] [place] [address]- 1979 Aug, [facility] [place] [facility] [address] [id number] [place] [address]- 7592 July, [facility] [place] [facility] [address] [id number] [place] [address]- 2442 July, [facility] [place] [facility] [address] [id number] [place] [address]- 0326 Jun, [facility] [place] [facility] [address] [id number] [place] [address]- 9380 Jun, [facility] [place] [facility] [address] [id number] [place] [address]- 1244 May, [facility] [place] [facility] [address] [id number] [place] [address]- 4167 May, [facility] [place] [facility] [address] [id number] [place] [address]- 5497 May, [facility] [place] [facility] [address] [id number] [place] [address]- 8311 May, [facility] [place] [facility] [address] [id number] [place] [address]- 4920 Apr, [facility] [place] [facility] [address] [id number] [place] [address]- 8001 Apr, [facility] [place] [facility] [address] [id number] [place] [address]- 1793 Apr, [facility] [place] [facility] [address] [id number] [place] [address]- 5912 Apr, [facility] [place] [facility] [address] [id number] [place] [address]- 2378 Apr, [facility] [address] [id number] [place] [address]- 9753 Apr, [facility] [place] [facility] [address] [id number] [place] 5496 Feb, [facility] [place] [facility] [address] [id number] [place] [address]- 8302 Feb, [facility] [place] [facility] [address] [id number] [place] [address]- 5903 Feb, [facility] [address] [id number] [place] 9754 Feb, [facility] [place] [facility] [address] [id number] [place] [address]- 8088 Jan, [facility] [place] [facility] [address] [id number] [place] [address]- 0868 Jan, [facility] [address] [id number] [place] [address]- 0633 Dec, [facility] [place] [facility] [address] [id number] [place] [address]- 2404 Dec, [facility] [place] [facility] [address] [id number] [place] [address]- 4901 Dec, [facility] [place] [facility] [address] [id number] [place] [address]- 1208 Dec, [facility] [place] [facility] [address] [id number] [place] [address]- 0275 Oct, [facility] [place] [facility] [address] [id number] [place] [id number] Oct, [facility] [place] [facility] [address] [facility] [id number] [place] [id number] Oct, [facility] [place] [facility] [address] [id number], [place] [address]- 8222 Oct, [facility] [place] [facility] [address] [id number] [place] [address]- 3946 Sep, [facility] [address] [id number] [place] [address]- 9369 Sep, [facility] [place] [facility] [address] [id number] [place] [address]- 8264 Aug, [facility] [place] [facility] [address] [id number] [place] [address]- 0801 Aug, [facility] [place] [facility] [address] [id number] [place] [address]- 8924 Aug, [facility] [place] [facility] [address] [id number] [place] [address]- 5186 Aug, [facility] [address] [id number] [place] [address]- 0988 July, [facility] [address] [id number] [place] [address]- 5324 Jun, [facility] [place] [facility] [address] [id number] [place] [address]- 2057 May, [facility] [place] [facility] [address] [id number] [place] [address]- 9469 May, [facility] [place] [facility] [address] [id number] [place] [address]- 8295 May, [facility] [place] [facility] [address] [id number] [place] [address]- 7367 May, [facility] [place] [facility] [address] [id number] [place] [address]- 3850 May, [facility] [place] [facility] [address] [id number] [place] [address]- 3894 Apr, [facility] [place] [facility] [address] [id number] [place] [address]- 6021 Apr, [facility] [place] [facility] [address] [id number] [place] [address]- 3907 07 Apr, 2012 [facility] [address] [id number] [place] [address]- 3968 Apr, [facility] [place] [facility] [address] [id number] [place] [address]- 4146 Mar, [facility] [place] [facility] [address] [id number] [place] [address]- 7939 Mar, [facility] [place] [facility] [address] [id number] [place] [address] Mar, [facility] [place] [facility] [address] [id number] [place] [address] Mar, [facility] [place] [facility] [address] [id number] [place] [address] Jan, [facility] [address] [id number] [place] [address] Jan, [facility] [place] [facility] [address] [id number] [place] [address] Jan, [facility] [place] [facility] [address] [id number] [place] [address] Jan, [facility] [place] [facility] [address] [id number] [place] [address] Jan, [facility] [place] [facility] [address] [id number] [address] Jan, [facility] [place] [facility] [address] [id number], [place] [address] Jan, [facility] [place] [facility] [address] [id number] [place] [address] Jan, [facility] [place] [facility] [address] [id number] [place] [address] Jan, [facility] [place] [facility] [address] [id number] [place] [address] Jan, [facility] [place] [facility] [address] [id number] [address] Dec, [facility] [id number], [place] [address] Dec, [facility] [id number], [place] [address] Dec, [facility] [address] [id number], [place] [address] Nov, [facility] [id number], [place] [address] Nov, [facility] [id number], [place] [address] Nov, [facility] [id number], [place] [address] Nov, [facility] [id number], [place] [address] Oct, [facility] [address] [id number], [place] [address] Oct, IMMUNIZATIONS No Known Immunizations SOCIAL HISTORY Never Assessed REASON FOR VISIT Hydrocodone PLAN OF CARE VITAL SIGNS MEDICATIONS Medication Instructions Dosage Frequency Start Date End Date Duration Status Hydrocodone-Acetaminophen 10-325 MG TAKE ONE TABLET BY MOUTH EVERY 8 HOURS NEEDED Sep, 30 Active RESULTS No Results PROCEDURES No Known [...]
[2018-03-09 09:27] LABS: BACTERIA,URINE MODERATE /HPF; RBC,URINE RARE /HPF; WBC,URINE 25-50 /HPF
--- OUTSIDE RECORDS SUMMARY | 2018-03-09 09:27 | XMS REPORT ---
Author Author GEE AMADO [facility] Address [address] [place] [address] Care Team Providers Care Medical/Surgery Registered Nurse Name Role Phone GEE AMADO Unavailable PROBLEMS Type Condition ICD9-CM Code RTP70-DC Code Onset Dates Condition Status SNOMED Code Problem Hyperlipidemia, unspecified hyperlipidemia type E78.5 Active 83722882 Problem GERD (gastroesophageal reflux disease) K21.9 Active 099795037 Problem Essential hypertension I10 Active 24854740 Problem Paresthesias in right hand R20.2 Active 979925156 Problem Coronary artery disease involving [place] coronary artery of [place] heart without angina pectoris I25.10 Active [id number] Problem Neck pain M54.2 Active 86868020 Problem Type 2 diabetes mellitus without complications E11.9 Active [id number] ALLERGIES No Information ENCOUNTERS Encounter Location Date Diagnosis [place] [id number] [place] [address] 49503- 8294 Mar, Type 2 diabetes mellitus without complications E11.9 [place] [id number] [place] [address] 27710- 2257 Mar, [facility] [id number] [place] [address] 88313- 0657 Feb, Type 2 diabetes mellitus without complications E11.9 [facility] [id number] [place] [address] 60389- 6311 Jan, Type 2 diabetes mellitus without complications E11.9 [facility] [id number] [place] [address] 91934- 5260 Jan, Type 2 diabetes mellitus without complications E11.9 [facility] [id number] [place] [address] 22430- 6406 Nov, [facility] [address] [place] [address] 9986 16 Oct, 2016 Type 2 diabetes mellitus without complications E11.9 [facility] [id number] [place] [address] 51343- 7935 Oct, Type 2 diabetes mellitus without complications E11.9 ; Essential hypertension I10 and Neck pain M54.2 [facility] [id number] [place] [address] 77895- 4962 Sep, [facility] [id number] [place] [address] 89624- 7780 Aug, Type 2 diabetes mellitus without complications E11.9 [facility] [id number] [place] [address] 56136- 4037 Jun, Type 2 diabetes mellitus without complications E11.9 ; Neck pain M54.2 and Essential hypertension I10 [facility] [id number] [place] [address] 04865- 8465 Jun, [facility] [id number] [place] [address] 84780- 9442 Jun, [facility] [id number] [place] [address] 76712- 9181 Jun, GERD (gastroesophageal reflux disease) K21.9 and Type 2 diabetes mellitus without complications E11.9 [facility] [id number] [place] [address] 66944- 6485 Mar, Paresthesias in right hand R20.2 [facility] [id number] [place] [address] 42333- 1568 Feb, Type 2 diabetes mellitus without complications E11.9 [facility] [id number] [place] [address] [id number] Feb, Encounter for dental examination Z01.20 [facility] [id number] [place] [address] 79447- 0482 09 Feb, 2016 Type 2 diabetes mellitus without complications E11.9 and Neck pain M54.2 [facility] [address] [facility] [id number] 7376 Feb, Type 2 diabetes mellitus without complications E11.9 [facility] [id number] [place] [address] [id number] Jan, Dental examination Z01.20 [facility] [address] [id number] [address]- 7896 Jan, [facility] [id number] [place] [address] 88431- 8838 Jan, [facility] [id number] [place] [address] [id number] Dec, Dental caries K02.9 [facility] [id number] [place] [address] 456124- 3164 Nov, [facility] [id number] [place] [address] 78755- 2199 Nov, [facility] [id number] [place] [address] 27022- 0710 Oct, Type 2 diabetes mellitus without complications E11.9 ; Neck pain M54.2 and Essential hypertension I10 [facility] [id number] [place] [address] 52036- 0450 Oct, [facility] [id number] [place] [address] [id number] Oct, Dental examination Z01.20 [facility] [id number] [address]- 0443 Sep, [facility] [id number] [place] [address] 89797- 9463 Sep, [facility] [id number] [place] [address] 72324- 5774 Aug, Essential (primary) hypertension I10 [facility] [id number] [address]- 1554 Aug, [facility] [id number] [address]- 3095 Aug, [facility] [id number] [place] [address] 24166- 5110 July, Essential (primary) hypertension I10 [facility] [id number] [place] [address] 02532- 6582 July, Essential (primary) hypertension I10 and Type 2 diabetes mellitus without complications E11.9 [facility] [id number] [place] [address] 38159- 4705 July, [facility] [id number] [place] [address] 09746- 6726 Jun, GERD (gastroesophageal reflux disease) K21.9 [facility] [id number] [place] [address] 11961- 8107 Jun, GERD (gastroesophageal reflux disease) K21.9 [facility] [id number] [place] [address] 68704- 3339 Jun, [facility] [id number] [place] [address] 45458- 7580 Jun, Neuropathy G62.9 [facility] [id number] [address]- 8319 May, Essential (primary) hypertension I10 [facility] [id number] [address] May, Bronchitis J40 [facility] [id number] [address]- 2540 15 May, 2015 Type 2 diabetes mellitus without complications E11.9 and Essential (primary) hypertension I10 [facility] [id number] [address] 2546 May, [facility] [id number] [address]- 9316 May, GERD (gastroesophageal reflux disease) K21.9 [facility] [id number] [place] [address] 07203- 8156 Apr, Other and unspecified hyperlipidemia 272.4 ; Unspecified essential hypertension 401.9 ; Type 2 diabetes mellitus without complications E11.9 ; Neck pain M54.2 and Paresthesias in right hand R20.2 [facility] [id number] [place] [address] 16650- 2459 Apr, [facility] [address] 81911- 5308 Apr, Neuropathy G62.9 [facility] [id number] [place] [address] 18880- 2404 Mar, [facility] [id number] [place] [address] 01924- 0029 Feb, [facility] [id number] [place] [address] 54544- 5716 Jan, [facility] [id number] [place] [address] 13558- 1008 Dec, [facility] [id number] [place] [address] 25025- 4850 Dec, Type 2 diabetes mellitus without complications E11.9 ; Encounter for immunization Z23 and Neck pain M54.2 [facility] [id number] [place] [address] 24689- 5884 Dec, [facility] [id number] [place] [address] 20197- 2701 Nov, [facility] [id number] [place] [address] 46740- 4864 Nov, [facility] [id number] [place] [address] 98194- 7691 Oct, [facility] [id number] [place] [address] 47283- 7215 Oct, [facility] [id number] [place] [address] [id number]- 4490 Sep, [facility] [id number] 2596 Sep, Coronary atherosclerosis of unspecified type of vessel, [place] or graft 414.00 ; Diabetes mellitus without mention of complication, type II or unspecified type, not stated as uncontrolled 250.00 ; Hyperlipidemia 272.4 and HTN (hypertension) 401.9 [facility] [id number] 9017 Aug, [facility] [id number]- 0256 July, [facility] [id number] [address]- 7131 Jun, [facility] [id number] [address]- 8571 Jun, [facility] [id number] [address]- 5351 May, [facility] [id number] [address]- 0076 May, [facility] [id number] [address]- 7070 May, [facility] [id number] 9666 May, [facility] [id number]- 6891 Apr, [facility] [id number]- 5270 Apr, [facility] [id number] [address]- 3186 Apr, [facility] [id number] [address]- 1596 Apr, [facility] [address] [place] [address]- 5991 Apr, 2014 [facility] [address] [id number] [place] [address]- 2200 Apr, 2014 [facility] [place] [facility] [address] [id number] [place] [address]- 4899 Apr, 2014 [facility] [place] [facility] [address] [id number] [place] [address]- 1979 Apr, [facility] [place] [facility] [address] [id number] [place] [address]- 8305 Mar, [facility] [place] [facility] [address] [id number] [place] [address]- 4556 Mar, [facility] [place] [facility] [address] [id number] [place] [address]- 3862 Mar, [facility] [place] [facility] [address] [id number] [place] [address]- 9249 Mar, [facility] [place] [facility] [address] [id number] [place] [address]- 4014 Mar, [facility] [place] [facility] [address] [id number] [place] [address]- 4963 Mar, [facility] [place] [facility] [address] [facility] [id number] [place] [address]- 3743 Mar, [facility] [place] [facility] [address] [id number] [place] [address]- 4842 Mar, [facility] [place] [facility] [address] [id number] [place] [address]- 0469 Feb, [facility] [place] [facility] [address] [id number] [place] [address]- 6109 Feb, [facility] [place] [facility] [address] [id number] [place] [address]- 4106 Feb, [facility] [place] [facility] [address] [id number] [place] [address]- 3235 Feb, [facility] [place] [facility] [address] [id number] [place] [address]- 4390 Feb, [facility] [place] [facility] [address] [id number] [place] [address]- 1850 Feb, [facility] [place] [facility] [address] [id number] [place] [address]- 6334 Feb, [facility] [place] [facility] [address] [id number] [place] [address]- 6632 Feb, [facility] [place] [facility] [address] [id number] [place] [address]- 0618 Feb, [facility] [place] [facility] [address] [id number] [place] [address]- 1069 Feb, [facility] [place] [facility] [address] [id number] [place] [address]- 4505 Jan, [facility] [place] [facility] [address] [id number] [place] [address]- 8965 Jan, [facility] [place] [facility] [address] [id number] [place] [address]- 9234 Dec, [facility] [place] [facility] [address] [id number] [place] [address]- 6209 Dec, [facility] [place] [facility] [address] [id number] [place] [address]- 5334 Dec, [facility] [place] [facility] [address] [id number], [place] [address]- 6311 Dec, [facility] [place] [facility] [address] [id number] [place] [address]- 6061 Nov, [facility] [place] [facility] [address] [id number] [place] [address]- 1286 15 Nov, 2013 [facility] [place] [facility] [address] [id number] [place] 4999 Nov, [facility] [place] [facility] [address] [id number] [place] [address]- 7855 Nov, [facility] [place] [facility] [address] [id number] [place] [address]- 9416 Oct, [facility] [place] [facility] [address] [id number] [place] [address]- 5080 Oct, [facility] [place] [facility] [address] [id number] [place] [address]- 9616 Oct, [facility] [place] [facility] [address] [id number] [place] [address]- 0286 Oct, [facility] [place] [facility] [address] [id number] [place] [address]- 9779 Oct, [facility] [place] [facility] [address] [id number] [place] [address]- 2726 Sep, [facility] [place] [facility] [address] [id number] [place] [address]- 7646 Sep, [facility] [place] [facility] [address] [id number] [place] [address]- 6155 Sep, [facility] [place] [facility] [address] [id number] [place] [address]- 1980 Sep, [facility] [place] [facility] [address] [id number] [place] [address]- 6524 Sep, [facility] [place] [facility] [address] [id number] [place] [address]- 0660 Sep, [facility] [place] [facility] [address] [id number] [place] [address]- 8666 Aug, [facility] [place] [facility] [address] [id number] [place] [address]- 3135 Aug, [facility] [place] [facility] [address] [id number] [place] [address]- 2882 Aug, [facility] [place] [facility] [address] [id number] [place] [address]- 1299 Aug, [facility] [place] [facility] [address] [id number] [place] [address]- 0533 Aug, [facility] [place] [facility] [address] [id number] [place] [address]- 2705 Aug, [facility] [place] [facility] [address] [id number] [place] [address]- 0079 July, [facility] [place] [facility] [address] [id number] [place] [address]- 5715 July, [facility] [place] [facility] [address] [id number] [place] [address]- 8641 Jun, [facility] [place] [facility] [address] [id number] [place] [address]- 0194 Jun, [facility] [place] [facility] [address] [id number] [place] [address]- 0532 May, [facility] [place] [facility] [address] [id number] [place] [address]- 1354 May, [facility] [place] [facility] [address] [id number] [place] [address]- 7637 May, [facility] [place] [facility] [address] [id number] [place] [address]- 5657 May, [facility] [place] [facility] [address] [id number] [place] [address]- 7711 Apr, [facility] [place] [facility] [address] [id number] [place] [address]- 4537 Apr, [facility] [place] [facility] [address] [id number] [place] [address]- 1028 Apr, [facility] [place] [facility] [address] [id number] [place] [address]- 7661 Apr, [facility] [place] [facility] [address] [id number] [place] [address]- 2211 03 Apr, 2013 [facility] [place] [facility] [address] [id number], [place] [address]- 9516 Apr, [facility] [place] [facility] [address] [id number] [place] [address]- 3502 Feb, [facility] [place] [facility] [address] [id number], [place] [address]- 9377 Feb, [facility] [place] [facility] [address] [id number] [place] [address]- 1407 Feb, [facility] [place] [facility] [address] [id number], [place] [address]- 9310 Feb, [facility] [place] [facility] [address] [id number] [place] 9571 Jan, [facility] [place] [facility] [address] [id number] [place] 4807 Jan, [facility] [place] [facility] [address] [id number] 2127 Dec, [facility] [place] [facility] [address] [id number], [place] [address]- 4028 Dec, [facility] [place] [facility] [address] [id number], [place] [address]- 1903 Dec, [facility] [place] [facility] [address] [id number], [place] [address]- 6684 Dec, [facility] [place] [facility] [address] [id number], [place] [address]- 7144 Oct, [facility] [place] [facility] [address] [id number][place] [id number] Oct, [facility] [place] [facility] [address] [id number][place] Oct, [facility] [place] [facility] [address] [id number], [place] [address] 2545 Oct, [facility] [place] [facility] [address] [id number], [place] [address]- 6403 Sep, [facility] [place] [facility] [address] [id number] [place] [address]- 3145 Sep, [facility] [address] [id number] [place] [address]- 7301 Aug, [facility] [place] [facility] [address] [id number] [place] [address]- 2373 Aug, [facility] [address] [id number] [place] [address]- 8915 Aug, [facility] [place] [facility] [address] [id number] [place] [address] Aug, [facility] [address] [id number] [place] [address] July, [facility] [place] [facility] [address] [id number] [place] [address] Jun, [facility] [address] [facility] [id number] [place] [address] May, [facility] [place] [facility] [address] [id number] [place] [address] May, [facility] [place] [facility] [address] [id number] [place] [address] May, [facility] [place] [facility] [address] [facility] [id number] [place] [address] May, [facility] [place] [facility] [address] [facility] [id number] [place] [address] May, [facility] [place] [facility] [address] [facility] [id number] [place] [address] Apr, [facility] [place] [facility] [address] [id number] [place] [address] Apr, [facility] [place] [facility] [address] [facility] [id number] [place] [address] Apr, [facility] [place] [facility] [address] [facility] [id number] [place] [address] Apr, [facility] [place] [facility] [address] [id number] [place] [address] Mar, [facility] [place] [facility] [address] [id number] [place] [address] Mar, [facility] [place] [facility] [address] [id number] [place] [address] Mar, [facility] [place] [facility] [address] [id number] [place] [address] Mar, [facility] [place] [facility] [address] [id number] [place] [address] Jan, [facility] [place] [facility] [address] [id number] [place] [address] Jan, [facility] [place] [facility] [address] [id number] [place] [address] Jan, [facility] [place] [facility] [address] [id number], [place] [address] Jan, [facility] [place] [facility] [address] [id number], [place] [address] Jan, [facility] [place] [facility] [address] [facility] [id number][place] [address] Jan, [facility] [place] [facility] [address] [id number], [place] [address] Jan, [facility] [place] [facility] [address] [id number], [place] [address] Jan, [facility] [place] [facility] [address] [id number], [place] [address] Jan, [facility] [place] [facility] [address] [id number], [place] [address] Jan, [facility] [place] [facility] [address] [id number], [place] [address] Dec, [facility] [place] [facility] [address] [id number], [place] [address] Dec, [facility] [address] [id number], [place] [address] Dec, [facility] [address] [id number], [place] [address] Nov, [facility] [address] [id number], [place] [address] Nov, [facility] [id number] [place] [address] Nov, [facility] [id number], [place] [address] Nov, [facility] [id number], [place] [address] Oct, [facility] [id number] [address] Oct, IMMUNIZATIONS No Known Immunizations SOCIAL HISTORY Never Assessed REASON FOR VISIT Eye Exam PLAN OF CARE VITAL SIGNS MEDICATIONS Unknown [...]
[2018-03-09 09:28] LABS: SQUAMOUS EPITHELIAL CELL,UR 0-2 /HPF
[2018-03-09] MEDS ORDERED: MIDAZOLAM 5 MG/5 ML (VERSED) VIAL ONE (09:29)
[2018-03-09] MEDS ORDERED: fentaNYL INJECTION 100 MCG/2 ML AMP ONE (09:29)
--- OUTSIDE RECORDS SUMMARY | 2018-03-09 09:29 | XMS REPORT | Continuity of Care Document ---
Author Author [facility] Address Unknown Phone Unavailable Allergies Active Description Code Type Severity Reaction Onset Reported/Identified Relationship to Patient Clinical Status Yes No Known Drug Allergies [id number] Drug Allergy Unknown N/A 11/13/2011 Medications There [...] A 786.50 UNSPECIFIED CHEST PAIN 11/13/2011 IBAN DAVALOS [...] SYND 11/16/2011 Ot 414.01 CORONARY ATHEROSCLEROSIS OF [place] CORON 11/16/2011 Ot 530.81 ESOPHAGEAL REFLUX 11/16/2011 [...] MD 250.02 DIABETES II UNCONTROLLED (UNCOMPLICATED) 12/16/2011 EGE AMADO MD 401.9 HYPERTENSION, UNSPECIFIED ESSENTIAL 12/16/2011 [...] DO, JUSTICE K 414.00 CAD 12/16/2011 MELINDA MECHANICAL SERVICE REPRESENTATIVE, VAN A 250.02 DIABETES II UNCONTROLLED (UNCOMPLICATED) 12/16/2011 MELINDA MECHANICAL SERVICE REPRESENTATIVE, VAN A 401.9 HYPERTENSION, UNSPECIFIED ESSENTIAL 12/16/2011 MELINDA MECHANICAL SERVICE REPRESENTATIVE, VAN A 414.00 CAD 12/16/2011 WHITE DDS, [...] INGRIS MARAVILLA, GEE 414.00 CAD 12/16/2011 NINI MECHANICAL SERVICE REPRESENTATIVE, LALITO L 250.02 DIABETES II UNCONTROLLED (UNCOMPLICATED) 12/16/2011 MADCarlos MECHANICAL SERVICE REPRESENTATIVE, LALITO L 401.9 HYPERTENSION, UNSPECIFIED ESSENTIAL 12/16/2011 NINI MECHANICAL SERVICE REPRESENTATIVE, LALITO L 414.00 CAD 12/16/2011 GEE AMADO [...] DIABETES MELLITUS POORLY CONTROLLED 05/10/2012 WHITE DDS, IBNA D 250.00 DIABETES MELLITUS POORLY CONTROLLED 05/10/2012 [...] 250.00 DIABETES MELLITUS POORLY CONTROLLED 05/10/2012 VAN LARWENCE APRN 250.00 DIABETES MELLITUS POORLY CONTROLLED 05/10/2012 [...] MILLER MD Ot 414.01 CORONARY ATHEROSCLEROSIS OF [place] CORON 08/28/2013 BOOM MILLER MD Ot 786.50 [...] VAN LAWRENCE APRN Ot V76.12 03/13/2015 BOOM MLILER MD Ot E11.9 TYPE 2 DIABETES MELLITUS [...] MD Ot I25.10 ATHSCL HEART DISEASE OF [place] CORONARY 03/13/2015 BOOM MILLER MD Ot R07.89 OTHER CHEST PAIN 03/13/2015 BOOM MILLER MD Ot Z68.35 BODY MASS INDEX (BMI) 35.0-35.9, ADULT 03/13/2015 BOOM MILLER MD Ot Z79.4 DETENTION (CURRENT) USE OF INSULIN 03/13/2015 BOOM MILLER MD Ot Z79.899 OTHER DETENTION (CURRENT) DRUG THERAPY 03/13/2015 BOOM MILLER MD Ot Z98.61 CORONARY ANGIOPLASTY STATUS 03/21/2015 BOOM MILLER MD Ot E78.5 03/21/2015 BOOM MILLER MD Ot I10 03/21/2015 BOOM MILLER MD Ot I25.10 03/21/2015 BOOM MILLER MD Ot R07.89 08/08/2015 Ot E78.5 HYPERLIPIDEMIA, UNSPECIFIED 08/08/2015 Ot I07.1 RHEUMATIC TRICUSPID INSUFFICIENCY 08/08/2015 Ot I10 ESSENTIAL ( PRIMARY) HYPERTENSION 08/08/2015 Ot I25.10 ATHSCL HEART DISEASE OF [place] CORONARY 08/09/2015 Ot E78.5 HYPERLIPIDEMIA, UNSPECIFIED 08/09/2015 Ot I07.1 RHEUMATIC TRICUSPID INSUFFICIENCY 08/09/2015 Ot I10 ESSENTIAL ( PRIMARY) HYPERTENSION 08/09/2015 Ot I25.10 ATHSCL HEART DISEASE OF [place] CORONARY 08/09/2015 Ot E78.5 HYPERLIPIDEMIA, UNSPECIFIED 08/09/2015 Ot I07.1 RHEUMATIC TRICUSPID INSUFFICIENCY 08/09/2015 Ot I10 ESSENTIAL ( PRIMARY) HYPERTENSION 08/09/2015 Ot I25.10 ATHSCL HEART DISEASE OF [place] CORONARY 08/12/2015 XANDER ESQUIVEL MD Ot M54.12 [...] 09/06/2015 Ot I25.10 ATHSCL HEART DISEASE OF [place] CORONARY 09/11/2015 ILANA SANTAMARIA MD Ot M54.2 [...] COTTO Ot 786.50 CHEST PAIN NOS 02/22/2017 MELINDA VANGRETTA Cleary APRN Ot V76.12 OTH SCREEN MAMMO-MALIGN NEOPLASM OF [place] 02/22/2017 BOOM MILLER MD Ot E78.5 HYPERLIPIDEMIA, UNSPECIFIED 02/22/2017 BOOM MILLER MD Ot I10 ESSENTIAL (PRIMARY) HYPERTENSION 02/22/2017 BOOM MILLER MD Ot I25.10 ATHSCL HEART DISEASE OF [place] CORONARY 02/22/2017 BOOM MILLER MD Ot R07.89 OTHER CHEST PAIN 02/22/2017 Ot E78.5 HYPERLIPIDEMIA, UNSPECIFIED 02/22/2017 Ot I07.1 RHEUMATIC TRICUSPID INSUFFICIENCY 02/22/2017 Ot I10 ESSENTIAL ( PRIMARY) HYPERTENSION 02/22/2017 Ot I25.10 ATHSCL HEART DISEASE OF [place] CORONARY 02/22/2017 XANDER ESQUIVEL MD Ot M54.12 RADICULOPATHY, CERVICAL REGION 02/22/2017 XANDER ESQUIVEL MD Ot Z98.1 ARTHRODESIS STATUS 02/22/2017 ILANA SANTAMARIA MD Ot M48.02 SPINAL STENOSIS, CERVICAL REGION 02/22/2017 ILANA SANTAMARIA MD Ot M50.30 OTHER CERVICAL DISC DEGENERATION, UNSP C 03/06/2017 BOOM MILLER MD Ot I10 ESSENTIAL (PRIMARY) HYPERTENSION 03/06/2017 BOOM MILLER MD Ot I25.10 ATHSCL HEART DISEASE OF [place] CORONARY 03/06/2017 BOOM MILLER MD Ot Z79.84 DETENTION (CURRENT) USE OF ORAL HYPOGLYC 03/17/2017 BOOM MILLER MD Ot E78.1 PURE HYPERGLYCERIDEMIA 03/17/2017 BOOM MILLER MD Ot E78.2 MIXED HYPERLIPIDEMIA 03/17/2017 BOOM MILLER MD Ot I11.0 HYPERTENSIVE HEART DISEASE WITH HEART FA 03/17/2017 BOOM MILLER MD Ot I34.0 NONRHEUMATIC MITRAL (VALVE) INSUFFICIENC 03/17/2017 BOOM MILLER MD Ot I35.8 OTHER NONRHEUMATIC AORTIC VALVE DISORDER 03/17/2017 BOOM MILLER MD Ot I51.7 CARDIOMEGALY 03/17/2017 BOOM MILLER MD Ot R07.89 OTHER CHEST PAIN 03/24/2017 BOOM MILLER MD Ot E78.1 PURE HYPERGLYCERIDEMIA 03/24/2017 BOOM MILLER MD Ot E78.2 MIXED HYPERLIPIDEMIA 03/24/2017 BOOM MILLER MD Ot I11.9 HYPERTENSIVE HEART DISEASE WITHOUT HEART 03/24/2017 BOOM MILLER MD Ot I34.0 NONRHEUMATIC MITRAL (VALVE) INSUFFICIENC 03/24/2017 BOOM MILLER MD Ot I35.8 OTHER NONRHEUMATIC AORTIC VALVE DISORDER 03/24/2017 BOOM MILLER MD Ot R07.89 OTHER CHEST PAIN 03/25/2017 BOOM MILLER MD Ot E78.5 HYPERLIPIDEMIA, UNSPECIFIED 03/25/2017 BOOM MILLER MD Ot I10 ESSENTIAL (PRIMARY) HYPERTENSION 03/25/2017 BOOM MILLER MD Ot I25.10 ATHSCL HEART DISEASE OF [place] CORONARY 03/25/2017 BOOM MILLER MD Ot I48.91 UNSPECIFIED ATRIAL FIBRILLATION 03/26/2017 BOOM MILLER MD Ot E78.5 HYPERLIPIDEMIA, UNSPECIFIED 03/26/2017 BOOM MILLER MD Ot I10 ESSENTIAL (PRIMARY) HYPERTENSION 03/26/2017 BOOM MILLER MD Ot I25.10 ATHSCL HEART DISEASE OF [place] CORONARY 03/26/2017 BOOM MILLER MD Ot I48.91 UNSPECIFIED ATRIAL FIBRILLATION 04/01/2017 BOOM MILLER MD Ot E11.9 TYPE 2 DIABETES MELLITUS WITHOUT COMPLIC 04/01/2017 BOOM MILLER MD Ot E66.9 OBESITY, UNSPECIFIED 04/01/2017 BOOM MILLER MD Ot E78.5 HYPERLIPIDEMIA, UNSPECIFIED 04/01/2017 BOOM MILLER MD Ot G47.10 HYPERSOMNIA, UNSPECIFIED 04/01/2017 BOOM MILLER MD Ot G89.29 OTHER CHRONIC PAIN 04/01/2017 BOOM MILLER MD Ot I10 ESSENTIAL (PRIMARY) HYPERTENSION 04/01/2017 BOOM MILLER MD Ot I25.10 ATHSCL HEART DISEASE OF [place] CORONARY 04/01/2017 BOOM MILLER MD Ot I48.91 UNSPECIFIED ATRIAL FIBRILLATION 04/01/2017 BOOM MILLER MD Ot R06.83 SNORING 04/01/2017 BOOM MILLER MD, Ot Z68.35 BODY MASS INDEX (BMI) 35.0-35.9, ADULT 04/01/2017 BOOM MILLER MD, Ot Z79.4 TRANSPORTATION AIDE (CURRENT) USE OF INSULIN 04/01/2017 BOOM MILLER MD, Ot Z79.82 DETENTION (CURRENT) USE OF ASPIRIN 04/01/2017 BOOM MILLER MD, Ot Z79.899 OTHER TRANSPORTATION AIDE (CURRENT) DRUG THERAPY 04/01/2017 BOOM MILLER MD Ot Z95.5 PRESENCE OF CORONARY ANGIOPLASTY IMPLANT 04/02/2017 BOOM MILLER MD, Ot G47.33 OBSTRUCTIVE SLEEP APNEA (ADULT) (PEDIATR 04/02/2017 VIVIANA COTTO Ot 250.00 DIAB SHAHRAM WO COMPL, TYPE II OR UNSPEC TY 04/02/2017 VIVIANA COTTO Ot 272.4 HYPERLIPIDEMIA NEC/NOS 04/02/2017 VIVIANA COTTO Ot 401.9 HYPERTENSION NOS 04/02/2017 VIVIANA COTTO Ot 414.00 CORON ATHEROSCLER NOS TYPE VESSEL, NATIV 04/02/2017 VIVIANA COTTO Ot 786.50 CHEST PAIN NOS 04/02/2017 MELINDAVAN CHISHOLM A MECHANICAL SERVICE REPRESENTATIVE Ot V76.12 OTH SCREEN MAMMO-MALIGN NEOPLASM OF [place] 04/02/2017 BOOM MILLER MD, Ot E78.5 HYPERLIPIDEMIA, UNSPECIFIED 04/02/2017 BOOM MILLER MD Ot I10 ESSENTIAL (PRIMARY) HYPERTENSION 04/02/2017 BOOM MILLER MD, Ot I25.10 ATHSCL HEART DISEASE OF [place] CORONARY 04/02/2017 BOOM MILLER MD Ot R07.89 OTHER CHEST PAIN 04/02/2017 Ot E78.5 HYPERLIPIDEMIA, UNSPECIFIED 04/02/2017 Ot I07.1 RHEUMATIC TRICUSPID INSUFFICIENCY 04/02/2017 Ot I10 ESSENTIAL ( PRIMARY) HYPERTENSION 04/02/2017 Ot I25.10 ATHSCL HEART DISEASE OF [place] CORONARY 04/02/2017 ALVIN MARAVILLA, XANDER Topete Ot M54.12 RADICULOPATHY, CERVICAL REGION 04/02/2017 ALVIN MARAVILLA, XANDER Topete Ot Z98.1 ARTHRODESIS STATUS 04/02/2017 ROSALIO MARAVILLA, ILANA French Ot M48.02 SPINAL STENOSIS, CERVICAL REGION 04/02/2017 ILANA SANTAMARIA MD Ot M50.30 OTHER CERVICAL DISC DEGENERATION, UNSP C 04/02/2017 BOOM MILLER MD Ot E78.1 PURE HYPERGLYCERIDEMIA 04/02/2017 BOOM MILLER MD Ot E78.2 MIXED HYPERLIPIDEMIA 04/02/2017 BOOM MILLER MD Ot I11.0 HYPERTENSIVE HEART DISEASE WITH HEART FA 04/02/2017 BOOM MILLER MD Ot I34.0 NONRHEUMATIC MITRAL (VALVE) INSUFFICIENC 04/02/2017 BOOM MILLER MD Ot I35.8 OTHER NONRHEUMATIC AORTIC VALVE DISORDER 04/02/2017 BOOM MILLER MD Ot I51.7 CARDIOMEGALY 04/02/2017 BOOM MILLER MD Ot R07.89 OTHER CHEST PAIN 04/02/2017 BOOM MILLER MD Ot E78.1 PURE HYPERGLYCERIDEMIA 04/02/2017 BOOM MILLER MD Ot E78.2 MIXED HYPERLIPIDEMIA 04/02/2017 BOOM MILLER MD Ot I11.9 HYPERTENSIVE HEART DISEASE WITHOUT HEART 04/02/2017 BOOM MILLER MD Ot I34.0 NONRHEUMATIC MITRAL (VALVE) INSUFFICIENC 04/02/2017 BOOM MILLER MD Ot I35.8 OTHER NONRHEUMATIC AORTIC VALVE DISORDER 04/02/2017 BOOM MILLER MD Ot R07.89 OTHER CHEST PAIN 04/02/2017 BOOM MILLER MD Ot G47.33 OBSTRUCTIVE SLEEP APNEA (ADULT) (PEDIATR 04/02/2017 BOOM MILLER MD Ot E11.9 TYPE 2 DIABETES MELLITUS WITHOUT COMPLIC 04/02/2017 BOOM MILLER MD Ot E66.9 OBESITY, UNSPECIFIED 04/02/2017 BOOM MILLER MD Ot E78.5 HYPERLIPIDEMIA, UNSPECIFIED 04/02/2017 BOOM MILLER MD Ot G47.10 HYPERSOMNIA, UNSPECIFIED 04/02/2017 BOOM MILLER MD Ot G89.29 OTHER CHRONIC PAIN 04/02/2017 BOOM MILLER MD Ot I10 ESSENTIAL (PRIMARY) HYPERTENSION 04/02/2017 BOOM MILLER MD Ot I25.10 ATHSCL HEART DISEASE OF [place] CORONARY 04/02/2017 BOOM MILLER MD Ot I48.91 UNSPECIFIED ATRIAL FIBRILLATION 04/02/2017 BOOM MILLER MD Ot R06.83 SNORING 04/02/2017 BOOM MILLER MD Ot Z68.35 BODY MASS INDEX (BMI) 35.0-35.9, ADULT 04/02/2017 BOOM MILLER MD Ot Z79.4 TRANSPORTATION AIDE (CURRENT) USE OF INSULIN 04/02/2017 BOOM MILLER MD Ot Z79.82 TRANSPORTATION AIDE (CURRENT) USE OF ASPIRIN 04/02/2017 BOOM MILLER MD Ot Z79.899 OTHER DETENTION (CURRENT) DRUG THERAPY 04/02/2017 BOOM MILLER MD Ot Z95.5 PRESENCE OF CORONARY ANGIOPLASTY IMPLANT 04/02/2017 BOOM MILLER MD Ot I48.91 UNSPECIFIED ATRIAL FIBRILLATION 04/03/2017 BOOM MILLER MD Ot G47.33 OBSTRUCTIVE SLEEP APNEA (ADULT) (PEDIATR 04/04/2017 BOOM MILLER MD Ot G47.33 OBSTRUCTIVE SLEEP APNEA (ADULT) (PEDIATR 04/04/2017 BOOM MILLER MD Ot R06.83 SNORING 04/05/2017 BOOM MILLER MD Ot G47.33 OBSTRUCTIVE SLEEP APNEA (ADULT) (PEDIATR 04/05/2017 BOOM MILLER MD Ot R06.83 SNORING 04/09/2017 BOOM MILLER MD Ot G47.33 OBSTRUCTIVE SLEEP APNEA (ADULT) (PEDIATR 04/09/2017 BOOM MILLER MD Ot R06.83 SNORING 04/20/2017 BOOM MILLER MD Ot E11.9 TYPE 2 DIABETES MELLITUS WITHOUT COMPLIC 04/20/2017 BOOM MILLER MD Ot E66.9 OBESITY, UNSPECIFIED 04/20/2017 BOOM MILLER MD Ot E78.5 HYPERLIPIDEMIA, UNSPECIFIED 04/20/2017 BOOM MILLER MD Ot G47.10 HYPERSOMNIA, UNSPECIFIED 04/20/2017 BOOM MILLER MD Ot G89.29 OTHER CHRONIC PAIN 04/20/2017 BOOM MILLER MD Ot I10 ESSENTIAL (PRIMARY) HYPERTENSION 04/20/2017 BOOM MILLER MD, Ot I25.10 ATHSCL HEART DISEASE OF [place] CORONARY 04/20/2017 BOOM MILLER MD Ot I48.91 UNSPECIFIED ATRIAL FIBRILLATION 04/20/2017 BOOM MILLER MD Ot R06.83 SNORING 04/20/2017 BOOM MILLER MD Ot Z68.35 BODY MASS INDEX (BMI) 35.0-35.9, ADULT 04/20/2017 BOOM MILLER MD Ot Z79.4 DETENTION (CURRENT) USE OF INSULIN 04/20/2017 BOOM MILLER MD Ot Z79.82 TRANSPORTATION AIDE (CURRENT) USE OF ASPIRIN 04/20/2017 BOOM MILLER MD, Ot Z79.899 OTHER TRANSPORTATION AIDE (CURRENT) DRUG THERAPY 04/20/2017 BOOM MILLER MD, Ot Z95.5 PRESENCE OF CORONARY ANGIOPLASTY IMPLANT 05/14/2017 BOOM MILLER MD Ot I48.91 UNSPECIFIED ATRIAL FIBRILLATION 06/27/2017 BOOM MILLER MD, Ot I48.91 UNSPECIFIED ATRIAL FIBRILLATION 06/29/2017 BOOM MILLER MD, Ot I48.91 UNSPECIFIED ATRIAL FIBRILLATION 09/24/2017 VIVIANA COTTO Ot 250.00 DIAB SHAHRAM WO COMPL, TYPE II OR UNSPEC TY 09/24/2017 VIVIANA COTTO Ot 272.4 HYPERLIPIDEMIA NEC/NOS 09/24/2017 VIVIANA COTTO Ot 401.9 HYPERTENSION NOS 09/24/2017 VIVIANA COTTO Ot 414.00 CORON ATHEROSCLER NOS TYPE VESSEL, NATIV 09/24/2017 VIVIANA COTTO Ot 786.50 CHEST PAIN NOS 09/24/2017 VAN LAWRENCE APRN Ot V76.12 OTH SCREEN MAMMO-MALIGN NEOPLASM OF [place] 09/24/2017 BOOM MILLER MD Ot E78.5 HYPERLIPIDEMIA, UNSPECIFIED 09/24/2017 BOOM MILLER MD Ot I10 ESSENTIAL (PRIMARY) HYPERTENSION 09/24/2017 BOOM MILLER MD Ot I25.10 ATHSCL HEART DISEASE OF [place] CORONARY 09/24/2017 BOOM MILLER MD Ot R07.89 OTHER CHEST PAIN 09/24/2017 Ot E78.5 HYPERLIPIDEMIA, UNSPECIFIED 09/24/2017 Ot I07.1 RHEUMATIC TRICUSPID INSUFFICIENCY 09/24/2017 Ot I10 ESSENTIAL ( PRIMARY) HYPERTENSION 09/24/2017 Ot I25.10 ATHSCL HEART DISEASE OF [place] CORONARY 09/24/2017 ALVIN MARAVILLA, XANDER Topete Ot M54.12 RADICULOPATHY, CERVICAL REGION 09/24/2017 XANDER ESQUIVEL MD Ot Z98.1 ARTHRODESIS STATUS 09/24/2017 ILANA SANTAMARIA MD Ot M48.02 SPINAL STENOSIS, CERVICAL REGION 09/24/2017 ILANA SANTAMARIA MD Ot M50.30 OTHER CERVICAL DISC DEGENERATION, UNSP C 09/24/2017 BOOM MILLER MD Ot E78.1 PURE HYPERGLYCERIDEMIA 09/24/2017 BOOM MILLER MD Ot E78.2 MIXED HYPERLIPIDEMIA 09/24/2017 BOOM MILLER MD Ot I11.0 HYPERTENSIVE HEART DISEASE WITH HEART FA 09/24/2017 BOOM MILLER MD Ot I34.0 NONRHEUMATIC MITRAL (VALVE) INSUFFICIENC 09/24/2017 BOOM MILLER MD Ot I35.8 OTHER NONRHEUMATIC AORTIC VALVE DISORDER 09/24/2017 BOOM MILLER MD Ot I51.7 CARDIOMEGALY 09/24/2017 BOOM MILLER MD Ot R07.89 OTHER CHEST PAIN 09/24/2017 BOOM MILLER MD Ot E78.1 PURE HYPERGLYCERIDEMIA 09/24/2017 BOOM MILLER MD Ot E78.2 MIXED HYPERLIPIDEMIA 09/24/2017 BOOM MILLER MD Ot I11.9 HYPERTENSIVE HEART DISEASE WITHOUT HEART 09/24/2017 BOOM MILLER MD Ot I34.0 NONRHEUMATIC MITRAL (VALVE) INSUFFICIENC 09/24/2017 BOOM MILLER MD Ot I35.8 OTHER NONRHEUMATIC AORTIC VALVE DISORDER 09/24/2017 BOOM MILLER MD Ot R07.89 OTHER CHEST PAIN 09/24/2017 BOOM MILLER MD Ot E11.9 TYPE 2 DIABETES MELLITUS WITHOUT COMPLIC 09/24/2017 BOOM MILLER MD Ot E66.9 OBESITY, UNSPECIFIED 09/24/2017 BOOM MILLER MD Ot E78.5 HYPERLIPIDEMIA, UNSPECIFIED 09/24/2017 BOOM MILLER MD Ot G47.10 HYPERSOMNIA, UNSPECIFIED 09/24/2017 BOOM MILLER MD Ot G89.29 OTHER CHRONIC PAIN 09/24/2017 BOOM MILLER MD Ot I10 ESSENTIAL (PRIMARY) HYPERTENSION 09/24/2017 BOOM MILLER MD Ot I25.10 ATHSCL HEART DISEASE OF [place] CORONARY 09/24/2017 BOOM MILLER MD Ot I48.91 UNSPECIFIED ATRIAL FIBRILLATION 09/24/2017 BOOM MILLER MD Ot R06.83 SNORING 09/24/2017 BOOM MILLER MD Ot Z68.35 BODY MASS INDEX (BMI) 35.0-35.9, ADULT 09/24/2017 BOOM MILLER MD Ot Z79.4 TRANSPORTATION AIDE (CURRENT) USE OF INSULIN 09/24/2017 BOOM MILLER MD Ot Z79.82 TRANSPORTATION AIDE (CURRENT) USE OF ASPIRIN 09/24/2017 BOOM MILLER MD Ot Z79.899 OTHER TRANSPORTATION AIDE (CURRENT) DRUG THERAPY 09/24/2017 BOOM MILLER MD Ot Z95.5 PRESENCE OF CORONARY ANGIOPLASTY IMPLANT 09/24/2017 BOOM MILLER MD Ot I48.91 UNSPECIFIED ATRIAL FIBRILLATION 09/24/2017 GEE AMADO MD Ot Z12.31 ENCNTR SCREEN MAMMOGRAM FOR MALIGNANT NE 09/24/2017 BOOM MILLER MD Ot E78.1 PURE HYPERGLYCERIDEMIA 09/24/2017 BOOM MILLER MD Ot E78.2 MIXED HYPERLIPIDEMIA 09/24/2017 BOOM MILLER MD Ot I11.0 HYPERTENSIVE HEART DISEASE WITH HEART FA 09/24/2017 BOOM MILLER MD Ot I34.0 NONRHEUMATIC MITRAL (VALVE) INSUFFICIENC 09/24/2017 BOOM MILLER MD Ot I35.8 OTHER NONRHEUMATIC AORTIC VALVE DISORDER 09/24/2017 BOOM MILLER MD Ot I51.7 CARDIOMEGALY 09/24/2017 BOOM MILLER MD Ot R07.89 OTHER CHEST PAIN 01/14/2018 BOOM MILLER MD Ot E11.9 TYPE 2 DIABETES MELLITUS WITHOUT COMPLIC 01/14/2018 BOOM MILLER MD Ot E66.9 OBESITY, UNSPECIFIED 01/14/2018 BOOM MILLER MD Ot E78.5 HYPERLIPIDEMIA, UNSPECIFIED 01/14/2018 BOOM MILLER MD Ot G47.10 HYPERSOMNIA, UNSPECIFIED 01/14/2018 BOOM MILLER MD Ot G89.29 OTHER CHRONIC PAIN 01/14/2018 BOOM MILLER MD Ot I10 ESSENTIAL (PRIMARY) HYPERTENSION 01/14/2018 BOOM MILLER MD Ot I25.10 ATHSCL HEART DISEASE OF [place] CORONARY 01/14/2018 BOOM MILLER MD Ot I48.91 UNSPECIFIED ATRIAL FIBRILLATION 01/14/2018 BOOM MILLER MD Ot R06.83 SNORING 01/14/2018 BOOM MILLER MD Ot Z68.35 BODY MASS INDEX (BMI) 35.0-35.9, ADULT 01/14/2018 BOOM MILLER MD Ot Z79.4 DETENTION (CURRENT) USE OF INSULIN 01/14/2018 BOOM MILLER MD Ot Z79.82 TRANSPORTATION AIDE (CURRENT) USE OF ASPIRIN 01/14/2018 BOOM MILLER MD Ot Z79.899 OTHER DETENTION (CURRENT) DRUG THERAPY 01/14/2018 BOOM MILLER MD Ot Z95.5 PRESENCE OF CORONARY ANGIOPLASTY IMPLANT 01/14/2018 BOOM MILLER MD Ot E11.9 TYPE 2 DIABETES MELLITUS WITHOUT COMPLIC 01/14/2018 BOOM MILLER MD Ot E66.9 OBESITY, UNSPECIFIED 01/14/2018 BOOM MILLER MD Ot E78.5 HYPERLIPIDEMIA, UNSPECIFIED 01/14/2018 BOOM MILLER MD Ot G47.10 HYPERSOMNIA, UNSPECIFIED 01/14/2018 BOOM MILLER MD Ot G89.29 OTHER CHRONIC PAIN 01/14/2018 BOOM MILLER MD Ot I10 ESSENTIAL (PRIMARY) HYPERTENSION 01/14/2018 BOOM MILLER MD Ot I25.10 ATHSCL HEART DISEASE OF [place] CORONARY 01/14/2018 BOOM MILLER MD Ot I48.91 UNSPECIFIED ATRIAL FIBRILLATION 01/14/2018 BOOM MILLER MD Ot R06.83 SNORING 01/14/2018 BOOM MILLER MD Ot Z68.35 BODY MASS INDEX (BMI) 35.0-35.9, ADULT 01/14/2018 BOOM MILLER MD Ot Z79.4 DETENTION (CURRENT) USE OF INSULIN 01/14/2018 BOOM MILLER MD Ot Z79.82 TRANSPORTATION AIDE (CURRENT) USE OF ASPIRIN 01/14/2018 BOOM MILLER MD Ot Z79.899 OTHER TRANSPORTATION AIDE (CURRENT) DRUG THERAPY 01/14/2018 BOOM MILLER MD Ot Z95.5 PRESENCE OF CORONARY ANGIOPLASTY IMPLANT 02/05/2018 BOOM MILLER MD Ot I48.0 PAROXYSMAL ATRIAL FIBRILLATION 02/05/2018 BOOM MILLER MD, Ot I48.0 PAROXYSMAL ATRIAL FIBRILLATION 02/07/2018 BOOM MILLER MD, Ot I48.0 PAROXYSMAL ATRIAL FIBRILLATION 02/07/2018 BOOM MILLER MD Ot Z51.81 ENCOUNTER FOR THERAPEUTIC DRUG LEVEL MON 02/07/2018 BOOM MILLER MD Ot Z79.01 TRANSPORTATION AIDE (CURRENT) USE OF ANTICOAGULANT 02/28/2018 BOOM MILLER MD Ot I48.0 PAROXYSMAL ATRIAL FIBRILLATION 02/28/2018 BOOM MILLER MD Ot Z51.81 ENCOUNTER FOR THERAPEUTIC DRUG LEVEL MON 02/28/2018 BOOM MILLER MD Ot Z79.01 DETENTION (CURRENT) USE OF ANTICOAGULANT 03/02/2018 BOOM MILLER MD Ot I48.0 PAROXYSMAL ATRIAL FIBRILLATION 03/02/2018 BOOM MILLER MD Ot Z51.81 ENCOUNTER FOR THERAPEUTIC DRUG LEVEL MON Procedures Code Description Performed By Performed On 00.40 PROCEDURE ON SINGLE VESSEL 11/13/2011 00.45 INSERTION OF ONE VASCULAR STENT 11/13/2011 00.66 PERCUTANEOUS TRANSLUMINAL CORONARY ANGIO 11/13/2011 36.07 INSRT OF DRUG-ELUTING CORON ARTERY STENT 11/13/2011 37.22 LEFT HEART CARDIAC CATH 11/13/2011 88.53 LT HEART ANGIOCARDIOGRAM 11/13/2011 88.56 CORONAR ARTERIOGR-2 CATH 11/13/2011 99.20 INJECT/INFUSE PLATELET INHIBITOR 11/13/2011 79204 ROUTINE VENIPUNCTURE 01/14/2012 99591 A1C (IN-HOUSE) 01/14/2012 60238 CMP 01/15/2012 [id number] GFR CALC (RESULT ONLY) 01/15/2012 76305 ROUTINE VENIPUNCTURE 04/13/2012 58710 BMP 04/13/2012 [id number] GFR CALC (RESULT ONLY) 04/13/2012 71911 A1C (IN-HOUSE) 04/25/2012 90266 MICRO ALBUMIN-IN HOUSE 04/25/2012 14016 MICROALBUMIN 04/25/2012 59270 HEPATITIS PROFILE 05/24/2012 83329 ROUTINE VENIPUNCTURE 08/05/2012 78579 A1C (IN-HOUSE) 08/05/2012 55790 CMP 08/05/2012 39709 LIPID PANEL 08/05/2012 [id number] GFR CALC (RESULT ONLY) 08/05/2012 99985 A1C (IN-HOUSE) 11/10/2012 39441 A1C (IN-HOUSE) 02/24/2013 29492 ROUTINE VENIPUNCTURE 05/30/2013 81469 EKG, TRACING (IN-HOUSE) 05/30/2013 81416 LIPID PANEL 05/30/2013 40801 MAGNESIUM 05/30/2013 35340 CBC 05/30/2013 [id number] GFR CALC (RESULT ONLY) 05/30/2013 68096 CMP 05/30/2013 31866 TSH 05/30/2013 36000 NUCLEAR STRESS TESTING 07/28/2013 33743 ECHO 2D 07/28/2013 03420 MAMMOGRAM, SCREENING 10/23/2013 95547 XRAY CERVICAL SPINE, 2 OR 3 VIEWS 02/20/2014 28461 XRAY WRIST RIGHT COMP MIN 3 VIEWS 03/06/2014 47233 A1C (IN-HOUSE) 03/23/2014 80796 XRAY CERVICAL SPINE, 2 OR 3 VIEWS 04/02/2014 Results Test Result Range Comp. Metabolic Panel (14) - 07/09/16 17:06 Glucose, Serum 47 mg/dL 65-99 BUN 32 mg/dL 6-24 Creatinine, Serum 1.21 mg/dL 0.57-1.00 eGFR If NonAfricn Am 49 mL/min/1.73 >59 eGFR If Africn Am 57 mL/min/1.73 >59 BUN/Creatinine Ratio 26 9-23 Sodium, Serum 140 mmol/L 134-144 Potassium, Serum 4.3 mmol/L 3.5-5.2 Chloride, Serum 100 mmol/L 96-106 Carbon Dioxide, Total 25 mmol/L 18-29 Calcium, Serum 9.9 mg/dL 8.7-10.2 Protein, Total, Serum 7.6 g/dL 6.0-8.5 Albumin, Serum 4.2 g/dL 3.5-5.5 Globulin, Total 3.4 g/dL 1.5-4.5 A/G Ratio 1.2 1.2-2.2 Bilirubin, Total 0.3 mg/dL 0.0-1.2 Alkaline Phosphatase, S 90 IU/L 39-117 AST (SGOT) 57 IU/L 0-40 ALT (SGPT) 47 IU/L 0-32 Microalb/Creat Ratio, Rand Ur - 07/09/16 17:06 Creatinine, Urine 31.9 mg/dL Not Estab. Microalbumin, Urine 143.3 ug/mL Not Estab. Microalb/Creat Ratio 449.2 mg/g creat 0.0-30.0 Automated blood complete blood count (hemogram) panel - 03/05/17 09:12 Blood leukocytes automated count (number/volume) 7.4 10*3/uL 4.3-11.0 Blood erythrocytes automated count (number/volume) 4.66 10*6/uL 4.35-5.85 Venous blood hemoglobin measurement (mass/volume) 12.8 g/dL 11.5-16.0 Blood hematocrit (volume fraction) 40 % 35-52 Automated erythrocyte mean corpuscular volume 86 [foz_us] 80-99 Automated erythrocyte mean corpuscular hemoglobin (mass per erythrocyte) 28 pg 25-34 Automated erythrocyte mean corpuscular hemoglobin concentration measurement ( mass/volume) 32 g/dL 32-36 Automated erythrocyte distribution width ratio 13.7 % 10.0-14.5 Automated blood platelet count (count/volume) 177 10*3/uL 130-400 Automated blood platelet mean volume measurement 10.8 [foz_us] 7.4-10.4 Comprehensive metabolic panel - 03/05/17 09:12 Serum or plasma sodium measurement (moles/volume) 140 mmol/L 135-145 Serum or plasma potassium measurement (moles/volume) 4.0 mmol/L 3.6-5.0 Serum or plasma chloride measurement (moles/volume) 105 mmol/L 98-107 Carbon dioxide 26 mmol/L 21-32 Serum or plasma anion gap determination (moles/volume) 9 mmol/L 5-14 Serum or plasma urea nitrogen measurement (mass/volume) 41 mg/dL 7-18 Serum or plasma creatinine measurement (mass/volume) 1.53 mg/dL 0.60-1.30 Serum or plasma urea nitrogen/creatinine mass ratio 27 NRG Serum or plasma creatinine measurement with calculation of estimated glomerular filtration rate 35 NRG Serum or plasma glucose measurement (mass/volume) 96 mg/dL 70-105 Serum or plasma calcium measurement (mass/volume) 9.7 mg/dL 8.5-10.1 Serum or plasma total bilirubin measurement (mass/volume) 0.3 mg/dL 0.1-1.0 Serum or plasma alkaline phosphatase measurement (enzymatic activity/volume) 99 U/L 40-136 Serum or plasma aspartate aminotransferase measurement (enzymatic activity/ volume) 48 U/L 5-34 Serum or plasma alanine aminotransferase measurement (enzymatic activity/volume ) 65 U/L 0-55 Serum or plasma protein measurement (mass/volume) 8.1 g/dL 6.4-8.2 Serum or plasma albumin measurement (mass/volume) 4.0 g/dL 3.2-4.5 Lipid 1996 panel - 03/05/17 09:12 Serum or plasma triglyceride measurement (mass/volume) 308 mg/dL <150 Serum or plasma cholesterol measurement (mass/volume) 267 mg/dL < 200 Serum or plasma cholesterol in HDL measurement (mass/volume) 31 mg/ dL 40-60 Cholesterol in LDL [mass/volume] in serum or plasma by direct assay 163 mg/dL 1-129 Serum or plasma cholesterol in VLDL measurement (mass/volume) 62 mg/ dL 5-40 PT panel in platelet poor plasma by coagulation assay - 03/05/17 09:12 Prothrombin time (PT) in platelet poor plasma by coagulation assay 13.3 s 12.2-14.7 INR in platelet poor plasma or blood by coagulation assay 1.0 0.8-1.4 Activated partial thromboplastin time (aPTT) in platelet poor plasma bycoagulation assay - 03/05/17 09:12 Activated partial thromboplastin time (aPTT) in platelet poor plasma bycoagulation assay 31 s 24-35 Complete urinalysis with reflex to culture - 03/05/17 09:12 Urine color determination YELLOW NRG Urine clarity determination CLEAR NRG Urine pH measurement by test strip 5 5-9 Specific gravity of urine by test strip 1.020 1.016- 1.022 Urine protein assay by test strip, semi-quantitative 3+ NEGATIVE Urine glucose detection by automated test strip NEGATIVE NEGATIVE Erythrocytes detection in urine sediment by light microscopy NEGATIVE NEGATIVE Urine ketones detection by automated test strip NEGATIVE NEGATIVE Urine nitrite detection by test strip NEGATIVE NEGATIVE Urine total bilirubin detection by test strip NEGATIVE NEGATIVE Urine urobilinogen measurement by automated test strip (mass/volume) NORMAL NORMAL Urine leukocyte esterase detection by dipstick 3+ NEGATIVE Automated urine sediment erythrocyte count by microscopy (number/high power field) NONE NRG Automated urine sediment leukocyte count by microscopy (number/high power field ) [HPF] NRG Bacteria detection in urine sediment by light microscopy FEW NRG Squamous epithelial cells detection in urine sediment by light microscopy 0-2 NRG Crystals detection in urine sediment by light microscopy NONE NRG Casts detection in urine sediment by light microscopy PRESENT NRG Mucus detection in urine sediment by light microscopy NEGATIVE NRG Complete urinalysis with reflex to culture YES NRG Hyaline casts detection in urine sediment by light microscopy 0-2 NRG Bacterial urine culture - 03/05/17 09:12 Bacterial urine culture NG NRG Methicillin resistant Staphylococcus aureus (MRSA) screening culture - 09:12 Methicillin resistant Staphylococcus aureus (MRSA) screening culture NEG NRG Capillary blood glucose measurement by glucometer (mass/volume) - 03/05/17 13: 20 Capillary blood glucose measurement by glucometer (mass/volume) 70 mg/dL 70-110 Capillary blood glucose measurement by glucometer (mass/volume) - 03/05/17 16: 11 Capillary blood glucose measurement by glucometer (mass/volume) 185 mg/dL 70-110 Capillary blood glucose measurement by glucometer (mass/volume) - 03/05/17 21: 02 Capillary blood glucose measurement by glucometer (mass/volume) 185 mg/dL 70-110 Automated blood complete blood count (hemogram) panel - 03/06/17 03:36 Blood leukocytes automated count (number/volume) 6.5 10*3/uL 4.3-11.0 Blood erythrocytes automated count (number/volume) 4.45 10*6/uL 4.35-5.85 Venous blood hemoglobin measurement (mass/volume) 12.2 g/dL 11.5-16.0 Blood hematocrit (volume fraction) 38 % 35-52 Automated erythrocyte mean corpuscular volume 86 [foz_us] 80-99 Automated erythrocyte mean corpuscular hemoglobin (mass per erythrocyte) 27 pg 25-34 Automated erythrocyte mean corpuscular hemoglobin concentration measurement ( mass/volume) 32 g/dL 32-36 Automated erythrocyte distribution width ratio 13.7 % 10.0-14.5 Automated blood platelet count (count/volume) 150 10*3/uL 130-400 Automated blood platelet mean volume measurement 11.2 [foz_us] 7.4-10.4 Whole blood basic metabolic panel - 03/06/17 03:36 Serum or plasma sodium measurement (moles/volume) 140 mmol/L 135-145 Serum or plasma potassium measurement (moles/volume) 4.5 mmol/L 3.6-5.0 Serum or plasma chloride measurement (moles/volume) 107 mmol/L 98-107 Carbon dioxide 23 mmol/L 21-32 Serum or plasma anion gap determination (moles/volume) 10 mmol/L 5-14 Serum or plasma urea nitrogen measurement (mass/volume) 31 mg/dL 7-18 Serum or plasma creatinine measurement (mass/volume) 1.22 mg/dL 0.60-1.30 Serum or plasma urea nitrogen/creatinine mass ratio 25 NRG Serum or plasma creatinine measurement with calculation of estimated glomerular filtration rate 45 NRG Serum or plasma glucose measurement (mass/volume) 145 mg/dL 70-105 Serum or plasma calcium measurement (mass/volume) 8.9 mg/dL 8.5-10.1 Automated blood complete blood count (hemogram) panel - 03/24/17 08:56 Blood leukocytes automated count (number/volume) 7.9 10*3/uL 4.3-11.0 Blood erythrocytes automated count (number/volume) 4.86 10*6/uL 4.35-5.85 Venous blood hemoglobin measurement (mass/volume) 13.4 g/dL 11.5-16.0 Blood hematocrit (volume fraction) 41 % 35-52 Automated erythrocyte mean corpuscular volume 84 [foz_us] 80-99 Automated erythrocyte mean corpuscular hemoglobin (mass per erythrocyte) 28 pg 25-34 Automated erythrocyte mean corpuscular hemoglobin concentration measurement ( mass/volume) 33 g/dL 32-36 Automated erythrocyte distribution width ratio 13.3 % 10.0-14.5 Automated blood platelet count (count/volume) 171 10*3/uL 130-400 Automated blood platelet mean volume measurement 10.6 [foz_us] 7.4-10.4 PT panel in platelet poor plasma by coagulation assay - 03/24/17 08:56 Prothrombin time (PT) in platelet poor plasma by coagulation assay 15.1 s 12.2-14.7 INR in platelet poor plasma or blood by coagulation assay 1.2 0.8-1.4 Activated partial thromboplastin time (aPTT) in platelet poor plasma bycoagulation assay - 03/24/17 08:56 Activated partial thromboplastin time (aPTT) in platelet poor plasma bycoagulation assay 37 s 24-35 Comprehensive metabolic panel - 03/24/17 08:56 Serum or plasma sodium measurement (moles/volume) 142 mmol/L 135-145 Serum or plasma potassium measurement (moles/volume) 4.5 mmol/L 3.6-5.0 Serum or plasma chloride measurement (moles/volume) 107 mmol/L 98-107 Carbon dioxide 22 mmol/L 21-32 Serum or plasma anion gap determination (moles/volume) 13 mmol/L 5-14 Serum or plasma urea nitrogen measurement (mass/volume) 32 mg/dL 7-18 Serum or plasma creatinine measurement (mass/volume) 1.03 mg/dL 0.60-1.30 Serum or plasma urea nitrogen/creatinine mass ratio 31 NRG Serum or plasma creatinine measurement with calculation of estimated glomerular filtration rate 55 NRG Serum or plasma glucose measurement (mass/volume) 75 mg/dL 70-105 Serum or plasma calcium measurement (mass/volume) 9.9 mg/dL 8.5-10.1 Serum or plasma total bilirubin measurement (mass/volume) 0.3 mg/dL 0.1-1.0 Serum or plasma alkaline phosphatase measurement (enzymatic activity/volume) 106 U/L 40-136 Serum or plasma aspartate aminotransferase measurement (enzymatic activity/ volume) 48 U/L 5-34 Serum or plasma alanine aminotransferase measurement (enzymatic activity/volume ) 52 U/L 0-55 Serum or plasma protein measurement (mass/volume) 8.1 g/dL 6.4-8.2 Serum or plasma albumin measurement (mass/volume) 4.0 g/dL 3.2-4.5 Methicillin resistant Staphylococcus aureus (MRSA) screening culture - 08:56 Methicillin resistant Staphylococcus aureus (MRSA) screening culture NEG NRG PT panel in platelet poor plasma by coagulation assay - 03/29/17 16:51 Prothrombin time (PT) in platelet poor plasma by coagulation assay 14.2 s 12.2-14.7 INR in platelet poor plasma or blood by coagulation assay 1.1 0.8-1.4 PT panel in platelet poor plasma by coagulation assay - 04/08/17 18:55 Prothrombin time (PT) in platelet poor plasma by coagulation assay 18.0 s 12.2-14.7 INR in platelet poor plasma or blood by coagulation assay 1.5 0.8-1.4 PT panel in platelet poor plasma by coagulation assay - 04/15/17 13:28 Prothrombin time (PT) in platelet poor plasma by coagulation assay 30.7 s 12.2-14.7 INR in platelet poor plasma or blood by coagulation assay 3.0 0.8-1.4 PT panel in platelet poor plasma by coagulation assay - 05/17/17 16:45 Prothrombin time (PT) in platelet poor plasma by coagulation assay 14.1 s 12.2-14.7 INR in platelet poor plasma or blood by coagulation assay 1.1 0.8-1.4 [facility] - 01/17/18 14:37 GLUCOSE 262 mg/dL 65-99 UREA NITROGEN (BUN) 33 mg/dL 7-25 CREATININE 1.27 mg/dL 0.50-0.99 eGFR NON-AFR. HONDURAN 46 mL/min/1.73m2 > OR=60 eGFR 53 mL/min/1.73m2 > OR=60 BUN/CREATININE RATIO 26 (calc) 6-22 SODIUM 139 mmol/L 135-146 POTASSIUM 4.9 mmol/L 3.5-5.3 CHLORIDE 100 mmol/L 98-110 CARBON DIOXIDE 30 mmol/L 20-32 CALCIUM 9.2 mg/dL 8.6-10.4 PROTEIN, TOTAL 7.4 g/dL 6.1-8.1 ALBUMIN 3.9 g/dL 3.6-5.1 GLOBULIN 3.5 g/dL (calc) 1.9-3.7 ALBUMIN/GLOBULIN RATIO 1.1 (calc) 1.0-2.5 BILIRUBIN, TOTAL 0.4 mg/dL 0.2-1.2 ALKALINE PHOSPHATASE 78 U/L 33-130 AST 37 U/L 10-35 ALT 35 U/L 6-29 PT panel in platelet poor plasma by coagulation assay - 02/05/18 16:45 Prothrombin time (PT) in platelet poor plasma by coagulation assay 24.6 s 12.2-14.7 INR in platelet poor plasma or blood by coagulation assay 2.2 0.8-1.4 PT panel in platelet poor plasma by coagulation assay - 03/01/18 15:10 Prothrombin time (PT) in platelet poor plasma by coagulation assay 13.4 s 12.2-14.7 INR in platelet poor plasma or blood by coagulation assay 1.0 0.8-1.4 Encounters ACCT No. Visit Date/Time Discharge Status Pt. Type Provider Facility Loc./Unit Complaint [id number] 06/01/2014 14:09:00 06/01/2014 23:59:59 CLS Outpatient GEE AMADO MD [id number] 04/30/2014 13:56:00 04/30/2014 23:59:59 CLS Outpatient GEE AMADO MD [id number] 03/29/2014 12:12:00 03/29/2014 23:59:59 CLS Outpatient GEE AMADO MD [id number] 03/23/2014 13:24:00 03/23/2014 23:59:59 CLS Outpatient GEE AMADO MD [id number] 03/06/2014 13:45:00 03/06/2014 23:59:59 CLS Outpatient LALITO TERRAZAS APRN [id number] 02/20/2014 14:47:00 02/20/2014 23:59:59 CLS Outpatient GEE AMADO MD [id number] 02/06/2014 16:34:00 02/06/2014 23:59:59 CLS Outpatient GEE AMADO MD [id number] 12/14/2013 00:00:00 12/14/2013 23:59:59 CLS Outpatient IBAN DAVALOS DDS [id number] 10/23/2013 09:58:00 10/23/2013 23:59:59 CLS Outpatient VAN LAWRENCE APRN [id number] 09/08/2013 09:39:00 09/08/2013 23:59:59 CLS Outpatient JUSTICE WADE DO Efrem [id number] 07/28/2013 08:44:00 07/28/2013 23:59:59 CLS Outpatient JUSTICE WADE DO Efrem [id number] 06/06/2013 15:27:00 06/06/2013 23:59:59 CLS Outpatient WHITE DDSJOELLE [id number] 05/30/2013 09:38:00 05/30/2013 23:59:59 CLS Outpatient GEE AMADO MD [id number] 04/25/2013 08:38:00 04/25/2013 23:59:59 CLS Outpatient WHITE DDIBAN Graham [id number] 03/05/2013 00:00:00 03/05/2013 23:59:59 CLS Outpatient MAURO DOLAN JUSTICE Topete [id number] 02/24/2013 07:56:00 02/24/2013 23:59:59 CLS Outpatient GEE AMADO MD [id number] 01/30/2013 08:00:00 01/30/2013 23:59:59 CLS Outpatient WHITE DDSIBAN [id number] 12/19/2012 00:00:00 12/19/2012 23:59:59 CLS Outpatient WHITE DDIBAN Graham [id number] 05/24/2012 09:24:00 05/24/2012 23:59:59 CLS Outpatient GEE AMADO MD [id number] 04/25/2012 09:57:00 04/25/2012 23:59:59 CLS Outpatient GEE AMADO MD [id number] 04/13/2012 09:38:00 04/13/2012 23:59:59 [place] [id number] 01/14/2012 14:34:00 01/14/2012 23:59:59 CLS Outpatient GEE AMADO MD [id number] 11/23/2012 10:51:00 Document Registration [id number] 08/05/2012 09:03:00 Document Registration [id number] 07/10/2016 11:07:00 Document Registration [id number] 08/30/2017 15:40:00 08/30/2017 23:59:59 CLS Outpatient GEE AMADO MD [facility] [id number] 01/17/2018 13:40:00 Document Registration [id number] 03/01/2018 08:00:00 03/01/2018 23:59:59 CLS Outpatient BOOM MILLER MD [facility] LAB ENCOUNTER FOR MONITORING COUMADIN THERAPY [id number] 02/05/2018 16:36:00 02/05/2018 23:59:59 CLS Outpatient BOOM MILLER MD [facility] LAB PT/INR LAB [id number] 09/01/2017 11:42:00 09/01/2017 23:59:59 CLS Preadmit GEE AMADO MD [facility] RAD MEDICARE ANNUAL WELLNESS VISIT,INITIAL [id number] 06/28/2017 00:42:00 06/28/2017 23:59:59 CLS Preadmit BOOM MILLER MD [facility] LAB I48.91 [id number] 06/15/2017 10:55:00 06/27/2017 00:01:00 DIS Outpatient BOOM MILLER MD [facility] LAB I48.91 [id number] 04/03/2017 19:54:00 04/04/2017 07:02:00 DIS Outpatient BOOM MILLER MD [facility] SLEEP G47.33 OBSTRUCTIVE SLEEP APNEA [id number] 03/24/2017 08:12:00 03/24/2017 23:59:59 CLS Outpatient BOOM MILLER MD [facility] CATH ATRIAL FIBRILLATION [id number] 03/05/2017 08:13:00 03/06/2017 13:30:00 DIS Outpatient BOOM MILLER MD [facility] CATH ABN STRESS TEST, CAD, HTN [id number] 03/01/2017 07:44:00 03/01/2017 23:59:59 CLS Outpatient BOOM MILLER MD [facility] CARD AORTIC VALVE SCLEROSIS [id number] 02/22/2017 11:38:00 02/22/2017 23:59:59 CLS Outpatient BOOM MILLER MD [facility] CARD I35.8 AORTIC VALVE SCLEROSIS [id number] 09/11/2015 07:51:00 09/11/2015 23:59:59 CLS Outpatient ILANA SANTAMARIA MD [facility] RAD STENOSIS [id number] 08/09/2015 17:28:00 08/09/2015 23:59:59 CLS Outpatient XANDER ESQUIVEL MD [facility] RAD CERVICAL RADICULOPATHY [id number] 03/13/2015 07:10:00 03/13/2015 14:20:00 DIS Outpatient BOOM MILLER MD [facility] CATH HTN,HLP,CAD,CP [id number] 02/27/2015 11:59:00 02/27/2015 23:59:59 CLS Outpatient BOOM MILLER MD [facility] CARD HTN,HLD,CPS [id number] 10/31/2013 10:27:00 10/31/2013 23:59:59 CLS Outpatient VAN LAWRENCE APRN [facility] RAD SCREENING [id number] 08/28/2013 08:36:00 08/28/2013 17:20:00 DIS Outpatient BOOM MILLER MD [facility] CATH CAD,CP,HLP,HTN,DM [id number] 08/18/2013 12:27:00 08/18/2013 23:59:59 CLS Outpatient VIVIANA COTTO [facility] CARD CAD,CP,HLP, HTN,DM [id number] 10/26/2012 12:11:00 10/26/2012 14:26:00 DIS Emergency RK RAWLS MD [facility] ER ELEVATED BP [id number] 03/09/2018 10:00:00 PEN Preadmit BOOM MILLER MD [facility] CATH CP,CAD,PAF,HTN [id number] 08/07/2015 09:49:00 Document Registration [id number] 11/13/2011 14:00:00 Document Registration
[2018-03-09] MEDS ORDERED: ATOR40TA70 PO (09:33)
[2018-03-09] MEDS ORDERED: WARF-48 PO (09:33)
[2018-03-09 09:35] LABS: ALBUMIN 4.3 GM/DL (3.2-4.5); BILIRUBIN,TOTAL 0.3 MG/DL (0.1-1.0); CALCIUM 10.2 MG/DL (8.5-10.1); CREATININE SERUM 1.39 MG/DL (0.60-1.30); POTASSIUM 3.9 MMOL/L (3.6-5.0); TOTAL PROTEIN 8.7 GM/DL (6.4-8.2)
[2018-03-09] MEDS ORDERED: METF-760 PO (09:35)
[2018-03-09] MEDS ORDERED: CYCL10TA9 PO (09:35)
[2018-03-09] MEDS ORDERED: MULT-1049 PO (09:36)
[2018-03-09] MEDS ORDERED: OMEG-160 PO (09:37)
[2018-03-09] MEDS ORDERED: INSU100V5 SQ (09:37)
[2018-03-09] MEDS ORDERED: FLU QUADRIvalent (5+ YOA) 2018-2019 (AFLURIA) 0.5 ML IM ONE (09:45)
[2018-03-09] MEDS ORDERED: PATIENT MAY USE OWN MEDS, ALL PO SCH (10:15)
--- NOTE | 2018-03-09 10:16 | Discharge Inst-Post CATH ---
Discharge Inst-CATH/EP Post Cardiac Cath/EP D/C Inst Follow Up/Plan Hold Metformin for [address] West in 2-4 weeks CARDIAC CATH DISCHARGE INSTRUCTIONS *Hold Metformin for 48 hours post heart cath. ACTIVITY * Go Home directly and rest. * Limit activity of the leg (or wrist if it was used) for 7 days including aerobics, swimming, jogging, bicycling, etc. * Restrict stair-climbing for 7 days if possible, if not, climb up with your non -cath leg, then bring together on the same step. * Avoid lifting, pushing, pulling or excessive movement of the affected extremity for 7 days. * Customary sexual activity may be resumed after 2 days-use caution not to use a position that strains or causes pain to the affected extremity. * No driving for 24 hours. * NO SMOKING. * Avoid straining for bowel movements for 7 days. * Gentle walking on level ground is allowed. * Returning to work will depend on the type of procedure and the results. Your doctor will discuss this with you. CALL YOUR DOCTOR FOR ANY OF THE FOLLOWING: *If bleeding from the puncture site occurs- Apply gentle pressure to site with clean cloth and call your doctor or EMS. * If a knot or lump forms under the skin, increases in size, or causes pain. * If bruising appears to be worsening or moving further down your leg instead of disappearing. * Temperature above 101 F. CARE OF YOUR GROIN INCISION; * Bruising or purple discoloration of the skin near the puncture site is common. * You may shower only, no bathtub bathing for 5 days. Be careful to avoid slipping as your leg may feel stiff. * If a closure device was used on your femoral artery, please see the attached guide regarding care of the device and your leg. * Leave the dressing on, until removed by office staff. CARE OF YOUR WRIST INCISION; * Bruising or purple discoloration of the skin near the puncture site is common. * You may shower. * DO NOT submerge wrist. * Leave dressing on, until removed by office staff.. BOOM WEST MD Mar 09, 2018 10:16
--- NOTE | 2018-03-09 10:22 | Cardiac Cath Report ---
Cardiac Cath Report Physician (s)/Php Web Developer (s) Physician BOOM MILLER MD Pre-Procedure Diagnosis Pre-Procedure Diagnosis: Coronary artery disease Post-Procedure Note Procedure Start Date: Mar 09, 2018 Name of Procedure: coronary artery disease Findings/Procedure Note PROCEDURE NOTE: After explaining the procedure to the patient, all pros and cons were explained , all questions were answered. The patient signed the consent and then she was placed on the cardiac catheterization laboratory. Groin was prepped SL fashion local anesthesia was used. Sheath placed in the right femoral artery. Raquel right and left catheter were used to access the coronary system. Pigtail was used to access the left ventricular cavity. Left ventriculogram was not done, pressure was measured At the end of the procedure the sheath was removed. Closure device was used FINDINGS: Hemodynamics LV 150/29, end-diastolic pressure 29 Aorta 150/68 mean of 98 ANATOMY: Left Main is free of obstructive disease Left Anterior Descending had patent stent in the proximal and midportion, mild to moderate disease at the distal LAD small vessel disease. Left Circumflex there is moderate in size with mild to moderate disease proximally, mild disease distally. Nonobstructive disease Right Coronory Artery is dominant artery with mild to moderate disease diffusely at the proximal and midportion area did not change compared to last year LV Gram was not done, pressure was measured CONCLUSION: 1. Calcified coronary system with patent stent in the proximal and mid LAD, mild to moderate disease at the distal LAD, small vessel disease. Not amendable to intervention 2. Calcified coronary system with [id number] disease in the occiput and mid right coronary artery, there is a 50 percent lesion at the distal right coronary artery just above the bifurcation, did not change compared to last year 3. Mild to moderate proximal circumflex artery disease, mild to moderate disease distally 4. Mildly elevated left ventricular end-diastolic pressure DISCUSSION AND RECOMMENDATION: Medical therapy is recommended no intervention is needed at this point, continue to maximize medical therapy Anesthesia Type: Conscious Sedation Estimated blood loss (mL): 15 ml Contrast Amount: 40 ml Total Radiation Dose: 597 mGy Post-Procedure Diagnosis Post-operative diagnosis: Chest pain nonspecific etiology Coronary artery disease Hypertension Hyperlipidemia BOOM MILLER MD Mar 09, 2018 10:22
[2018-03-09] MEDS ORDERED: FUROSEMIDE 40 MG/4 ML INJ (LASIX) IJ NR (15:29)
== END 2018-03-09 17:05 | disposition home or self-care (01) ==
LOC: CATH 08:29 → ICU 10:37 → CATH 17:05
PROVIDERS: ATTEND Internal Medicine Cardiovascular Disease
DX: R07.9 Chest pain, unspecified (principal); I25.10 Atherosclerotic heart disease of native coronary artery without angina pectoris; I10 Essential (primary) hypertension; E78.5 Hyperlipidemia, unspecified; E11.9 Type 2 diabetes mellitus without complications; I48.0 Paroxysmal atrial fibrillation; I35.0 Nonrheumatic aortic (valve) stenosis; G47.33 Obstructive sleep apnea (adult) (pediatric); E66.9 Obesity, unspecified; G89.29 Other chronic pain; Z79.899 Other long term (current) drug therapy; Z79.4 Long term (current) use of insulin; Z87.891 Personal history of nicotine dependence; Z95.5 Presence of coronary angioplasty implant and graft; Z68.37 Body mass index [BMI] 37.0-37.9, adult
CPT/HCPCS: 36415; 71045; 80053; 80061; 81000; 85027; 85610; 85730; 87081; 87088; 93005; 93458

== ENCOUNTER 2018-03-29 12:33 | Outpatient (RCR) | payer MEDICARE, OTHER ==
[2018-03-01 15:34] LABS: PROTHROMBIN TIME PATIENT 13.4 SEC (12.2-14.7)
[~2018-03-29 12:33] MED LIST changes: -AMLO10TA6 PO; +AMLO10TA7 PO; +CYCL10TA9 PO; -GABA600T2 PO; +GBPN600T PO; +METF-760 PO; +MULT-1049 PO; +OMEG-160 PO; +WARF-48 PO
[2018-03-29 12:57] LABS: INR 2.7 (0.8-1.4); PROTHROMBIN TIME PATIENT 28.5 SEC (12.2-14.7)
== END 2018-05-30 | disposition home or self-care (01) ==
LOC: LAB 12:33
PROVIDERS: ATTEND Internal Medicine Cardiovascular Disease
DX: I48.0 Paroxysmal atrial fibrillation (principal); Z79.01 Long term (current) use of anticoagulants
CPT/HCPCS: 36415; 85610

== ENCOUNTER 2018-07-11 21:46 | Emergency (ER) | payer MEDICARE, OTHER ==
[~2018-07-11] VITALS: Ht 162.6 cm; Wt 96.2 kg
[2018-07-11] MEDS ORDERED: NS IV 1000 ML 1,000 ML IV SCH ×2 (21:56)
[2018-07-11] MEDS ORDERED: RT-ALBUTEROL/IPRATROPIUM 3 ML (DUONEB) VIAL INH ONE (22:00)
[2018-07-11] MEDS ORDERED: cefTRIAXone FOR IV USE 1,000 MG in WATER (STERILE) FOR INJECTION 10 ML IV ONE (22:00)
[2018-07-11] MEDS ORDERED: ACETAMINOPHEN 500 MG TAB (TYLENOL) PO PRN (22:00)
[2018-07-11] MEDS ORDERED: ASPIRIN 81 MG CHEW (CHILDREN'S ASA) PO ONE (22:00)
[2018-07-11] MEDS ORDERED: AZITHROMYCIN INJECTION 500 MG in NS (IVPB) 250 ML IV ONE (22:00)
--- NOTE | 2018-07-11 22:04 | ED Respiratory ---
General Stated Complaint: FEVER,SOB Source: patient, spouse Exam Limitations: no limitations History of Present Illness Date Seen by Provider: Jul 11, 2018 Time Seen by Provider: 21:50 Initial Comments Patient presents to the ER by private conveyance with her and chief complaint of progressively worsening shortness of breath weakness and fever Tmax of 101.5 since yesterday. She took some ibuprofen 400 mg approximately 4 hours ago. She denies a history of lung disease such as COPD or asthma. She quit smoking many years ago. She does have a heart history followed by Dr. West with a history of stents but denies atrial fib or atrial flutter. She has a history of clots in her heart and was put on Eliquis which she still takes. No recent antibiotics or steroid use. No sick contacts. She does not require oxygen at home. The patient's EMR history reveals she is insulin-dependent diabetic with mitral and tricuspid regurgitation, hyperlipidemia, history of coronary artery disease , hypertension, LVH, aortic valve sclerosis, paroxysmal atrial fibrillation, Heart failure diastolic dysfunction. She was on Coumadin with aspirin and Plavix but recently was switched to Eliquis. Allergies and Home Medications Allergies Coded Allergies: morphine (Verified Adverse Reaction, Severe, hallucination, 07/12/18) Home Medications Amlodipine Besylate 10 Mg Tablet, 10 MG PO DAILY, (Reported) Aspirin 81 Mg Tablet.dr, 81 MG PO DAILY, (Reported) Atorvastatin Calcium 40 Mg Tablet, 40 MG PO HS, (Reported) Cinnamon Bark 500 Mg Capsule, 500 MG PO BID, (Reported) Clonidine HCl 0.1 Mg Tablet, 0.1 MG PO BID, (Reported) Clopidogrel Bisulfate 75 Mg Tablet, 75 MG PO DAILY, (Reported) Cyclobenzaprine HCl 10 Mg Tablet, 20 MG PO TID PRN for MUSCLE SPASMS, (Reported) Docusate Sodium 100 Mg Capsule, 100 MG PO BID PRN for CONSTIPATION-1ST LINE, ( Reported) Fenofibrate,Micronized 134 Mg Capsule, 134 MG PO HS, (Reported) Furosemide 40 Mg Tablet, 40 MG PO DAILY, (Reported) Gabapentin 600 Mg Tablet, 600 MG PO TID, (Reported) Hydrocodone/Acetaminophen 1 Each Tablet, 1 TAB PO TID PRN for PAIN-MODERATE, ( Reported) Insulin Aspart 300 Units/3 Ml Solution, SQ AC, (Reported) USES 1 UNIT FOR EVERY 2 POINTS OVER 100 BS Insulin Determir 1,000 Units/10 Ml Soln, 80 UNITS SQ BID, (Reported) Isosorbide Mononitrate 60 Mg Tab, 60 MG PO DAILY, (Reported) Lisinopril 20 Mg Tablet, 20 MG PO BID, (Reported) Lutein 20 Mg Tablet, 20 MG PO DAILY, (Reported) Magnesium Oxide 400 Mg Tablet, 400 MG PO HS, (Reported) Metoprolol Tartrate 100 Mg Tablet, 100 MG PO BID, (Reported) Multivitamin-Min/Iron/FA/Vit K 1 Each Tablet, 1 EACH PO DAILY, (Reported) [place]ham-3/Dha/Epa/Fish Oil 1 Each Capsule, 1 EACH PO HS, (Reported) Pantoprazole Sodium 40 Mg Tablet.dr, 40 MG PO DAILY, (Reported) Potassium Gluconate 99 Mg Tablet, 99 MG PO DAILY, (Reported) Primidone 50 Mg Tablet, 50 MG PO HS, (Reported) Warfarin Sodium 5 Mg Tablet, 10 MG PO HS, (Reported) Patient Home Medication List Home Medication List Reviewed: Yes Review of Systems Review of Systems Constitutional: chills, fever, malaise EENTM: nose congestion; No ear pain, No eye pain, No hoarseness, No nose pain, No throat pain, No throat swelling Respiratory: cough (occ); No phlegm; short of breath; No wheezing Cardiovascular: see HPI, chest pain; No edema; Hx of Intervention; No palpitations, No syncope; vascular heart diseas Gastrointestinal: No abdominal pain, No constipation, No diarrhea, No nausea, No vomiting Genitourinary: No discharge, No dysuria Musculoskeletal: No back pain, No joint pain Skin: No pruritus, No rash Past Pyuruxn-Vbrqlg-Ubbrbf Hx Patient Social History Alcohol Use: Denies Use Recreational Drug Use: No Smoking Status: Former Smoker Type Used: Cigarettes Former Smoker, Quit: Mar 24, 1997 Recent Foreign Travel: No Contact w/Someone Who Travel: No Recent Hopitalizations: Yes (PNEUMONIA 5 YRS AGO) Immunizations Up To Date Date of Pneumonia Vaccine: Mar 05, 2013 Date of Influenza Vaccine: Dec 11, 2014 Seasonal Allergies Seasonal Allergies: No Past Medical History Surgeries: Yes (NECK,CARPAL TUNNEL) Respiratory: No Cardiac: Yes (stents) Coronary Artery Disease Neurological: No Reproductive Disorders: No Gastrointestinal: Yes Gastroesophageal Reflux, Pancreatitis Musculoskeletal: No (BACK SURGERY FOR DISCS, NO CHRONIC PAIN) Endocrine: Yes (TYPE II) Cancer: No Psychosocial: No Integumentary: No Blood Disorders: No Family Medical History No Pertinent Family Hx Physical Exam Vital Signs - First Documented 07/11/18 21:48 Temp 99.6 Pulse 150 Resp 26 B/P (MAP) 155/85 (108) Pulse Ox 90 O2 Delivery Nasal Cannula O2 Flow Rate 4.00 FiO2 90 Capillary Refill : Height: 5'4.00" Weight: 212lbs. 0.0oz. 96.044313cf; 36.4 BMI Method:Stated General Appearance: moderate distress, obese Eyes: Bilateral Eye Normal Inspection, Bilateral Eye PERRL, Bilateral Eye EOMI HEENT: PERRL/EOMI, normal ENT inspection, TMs normal, pharynx normal Neck: full range of motion (oropharynx mildly dry), normal inspection Respiratory: lungs clear, normal breath sounds, no accessory muscle use, respiratory distress Cardiovascular: normal peripheral pulses, regular rate, rhythm Gastrointestinal: normal bowel sounds, non tender, soft Extremities: normal range of motion, normal inspection, no pedal edema, normal capillary refill Neurologic/Psychiatric: alert, normal mood/affect, oriented x 3, other ( somnolent; GCS 14.) Skin: normal color, warm/dry Focused Exam Lactate Level 07/11/18 22:18: Lactic Acid Level 2.52*H 07/12/18 00:20: Lactic Acid Level 2.86*H Lactic Acid Level Laboratory Tests Test 07/11/18 22:18 07/12/18 00:20 Lactic Acid Level 2.52 MMOL/L (0.50-2.00) *H 2.86 MMOL/L (0.50-2.00) *H Progress/Results/Core Measures Suspected Sepsis SIRS Temperature: Pulse: Respiratory Rate: Laboratory Tests 07/11/18 22:05: White Blood Count 11.8H Blood Pressure / Mean: 07/11/18 22:18: Lactic Acid Level 2.52*H 07/12/18 00:20: Lactic Acid Level 2.86*H Laboratory Tests 07/11/18 22:05: Creatinine 1.04, INR Comment 1.1, Platelet Count 174, Total Bilirubin 0.7 Results/Orders Lab Results Laboratory Tests Test 07/11/18 22:05 07/11/18 22:18 07/11/18 22:40 07/11/18 23:57 Range/Units White Blood Count 11.8 H 4.3-11.0 10^3/uL Red Blood Count 4.55 4.35-5.85 10^6/uL Hemoglobin 12.1 11.5-16.0 G/DL Hematocrit 40 35-52 % Mean Corpuscular Volume 87 80-99 FL Mean Corpuscular Hemoglobin 27 25-34 PG Mean Corpuscular Hemoglobin Concent 31 L 32-36 G/DL Red Cell Distribution Width 14.3 10.0-14.5 % Platelet Count 174 130-400 10^3/uL Mean Platelet Volume 11.0 H 7.4-10.4 FL Neutrophils (%) (Auto) 85 H 42-75 % Lymphocytes (%) (Auto) 10 L 12-44 % Monocytes (%) (Auto) 4 0-12 % Eosinophils (%) (Auto) 1 0-10 % Basophils (%) (Auto) 0 0-10 % Neutrophils # (Auto) 10.0 H 1.8-7.8 X 10^3 Lymphocytes # (Auto) 1.2 1.0-4.0 X 10^3 Monocytes # (Auto) 0.4 0.0-1.0 X 10^3 Eosinophils # (Auto) 0.1 0.0-0.3 10^3/uL Basophils # (Auto) 0.1 0.0-0.1 10^3/uL Prothrombin Time 14.8 H 12.2-14.7 SEC INR Comment 1.1 0.8-1.4 Activated Partial Thromboplast Time 34 24-35 SEC D-Dimer 1.22 H 0.00-0.49 UG/ML Sodium Level 142 135-145 MMOL/L Potassium Level 4.4 3.6-5.0 MMOL/L Chloride Level 101 98-107 MMOL/L Carbon Dioxide Level 22 21-32 MMOL/L Anion Gap 19 H 5-14 MMOL/L Blood Urea Nitrogen 25 H 7-18 MG/DL Creatinine 1.04 0.60-1.30 MG/DL Estimat Glomerular Filtration Rate 54 BUN/Creatinine Ratio 24 Glucose Level 223 H 70-105 MG/DL Calcium Level 9.6 8.5-10.1 MG/DL Corrected Calcium 9.5 8.5-10.1 MG/DL Total Bilirubin 0.7 0.1-1.0 MG/DL Aspartate Amino Transf (AST/SGOT) 53 H 5-34 U/L Alanine Aminotransferase (ALT/SGPT) 48 0-55 U/L Alkaline Phosphatase 106 40-136 U/L Troponin T 65 H <=10 NG/L Total Protein 8.2 6.4-8.2 GM/DL Albumin 4.1 3.2-4.5 GM/DL Lactic Acid Level 2.52 *H 0.50-2.00 MMOL/L Blood Gas Puncture Site LT RAD Blood Gas Patient Temperature 99.6 Arterial Blood pH 7.48 H 7.37-7.43 Arterial Blood Partial Pressure CO2 37 35-45 MMHG Arterial Blood Partial Pressure O2 61 L 79-93 MMHG Arterial Blood HCO3 28 H 23-27 MMOL/L Arterial Blood Total CO2 28.7 21.0-31.0 MMOL/L Arterial Blood Oxygen Saturation 93 L 94-100 % Arterial Blood Base Excess 4.0 H -2.5-2.5 MMOL/L Jose Test POS Blood Gas Ventilator Setting NO Blood Gas Inspired Oxygen 5L Urine Color YELLOW Urine Clarity SL CLOUDY Urine pH 5.5 5-9 Urine Specific Williams 1.025 H 1.016-1.022 Urine Protein 3+ H NEGATIVE Urine Glucose (UA) 1+ H NEGATIVE Urine Ketones NEGATIVE NEGATIVE Urine Nitrite NEGATIVE NEGATIVE Urine Bilirubin NEGATIVE NEGATIVE Urine Urobilinogen 0.2 NORMAL MG/DL Urine Leukocyte Esterase TRACE H NEGATIVE Urine RBC (Auto) TRACE-L NEGATIVE Urine RBC 0-2 /HPF Urine WBC 50-100 H /HPF Urine Squamous Epithelial Cells 2-5 /HPF Urine Renal Epithelial Cells 5-10 /HPF Urine Crystals NONE /LPF Urine Bacteria MODERATE H /HPF Urine Casts NONE /LPF Urine Mucus NEGATIVE /LPF Urine Culture Indicated CULTURE PENDING Test 07/12/18 00:20 Range/Units Lactic Acid Level 2.86 *H 0.50-2.00 MMOL/L Pro-B-Type Natriuretic Peptide 4517.0 H <75.0 PG/ML Micro Results Microbiology 07/11/18 Influenza Types A,B Antigen (VERÓNICA) - Final, Complete My Orders Orders - [facility] Angio Chest W (07/11/18 21:56) Cbc With Automated Diff (07/11/18 21:56) Comprehensive Metabolic Panel (07/11/18 21:56) Blood Culture (07/11/18 21:56) Sputum Culture (07/11/18:56) Urinalysis (07/11/18:56) Urine Culture (07/11/18:56) Protime With Inr (07/11/18:56) Partial Thromboplastin Time (07/11/18:56) Chest 1 View Ap/Pa Only (07/11/18:56) Acetaminophen Tablet (Tylenol Tablet) (07/11/18 22:00) Ed Iv/Invasive Line Start (07/11/18:56) Ed Iv/Invasive Line Start (07/11/18:56) Ekg Tracing (07/11/18:56) Vital Signs Adult Sepsis Patie Q15M (07/11/18:56) O2 (07/11/18:56) Remove Rings In Anticipation O (07/11/18:56) Lactic Acid Analyzer (07/11/18:56) Influenza A And B Antigens (07/11/18:56) Ns Iv 1000 Ml (Sodium Chloride 0.9%) (07/11/18:56) Ceftriaxone For Iv Use (Rocephin For I (07/11/18 22:00) Azithromycin Injection (Zithromax Inject (07/11/18 22:00) Ed Iv/Invasive Line Start (07/11/18:56) Ns Iv 1000 Ml (Sodium Chloride 0.9%) (07/11/18:56) Albuterol/Ipra Inhalation Soln (Duoneb I (07/11/18:00) Svn Small Volume Nebulizer (07/11/18:56) Fibrin Degradation Products (07/11/18:56) Troponin T (07/11/18:56) Aspirin Chewable Tablet (Baby Aspirin Ch (07/11/18 22:00) Arterial Blood Gas (07/11/18 22:14) Nitroglycerin 0.4 Mg Btl 25's (Nitrostat (07/11/18:45) Enoxaparin Injection (Lovenox Injection) (07/11/18 23:15) Fentanyl Injection (Sublimaze Injection (07/11/18 23:15) Metoprolol Tartrate Injection (Lopressor (07/11/18 23:15) Ed Iv/Invasive Line Start (07/11/18 23:04) Ns Iv 1000 Ml (Sodium Chloride 0.9%) (07/11/18 23:04) Ns Iv 1000 Ml (Sodium Chloride 0.9%) (07/11/18 23:04) Iohexol Injection (Omnipaque 350 Mg/Ml 1 (07/11/18 23:30) Received Contrast (Hold Metformin- Contr (07/11/18 23:30) Ns (Ivpb) (Sodium Chloride 0.9% Ivpb Bag (07/11/18 23:30) Ns Iv 1000 Ml (Sodium Chloride 0.9%) (07/12/18 00:30) Probnp Fs (07/12/18 00:33) Ns (Ivpb) (Sodium C... W/Diltiazem Injec (07/12/18 01:15) Fentanyl Injection (Sublimaze Injection (07/12/18 01:45) Fentanyl Injection (Sublimaze Injection (07/12/18 01:40) Catheter(Urinary) Insert & Ass 03,15 (07/12/18 02:18) Furosemide Injection (Lasix Injection) (07/12/18 02:30) Medications Given in ED Current Medications Medications Dose Ordered Sig/Papa Route Start Time Stop Time Status Last Admin Dose Admin Acetaminophen 1,000 mg ONCE PRN PO 07/11/18 22:00 07/11/18 23:01 DC 07/11/18 22:44 1,000 MG Albuterol/ Ipratropium 3 ml ONCE ONCE INH 07/11/18 22:00 07/11/18 22:01 DC 07/11/18 22:43 3 ML Aspirin 324 mg ONCE ONCE PO 07/11/18 22:00 07/11/18 22:01 DC 07/11/18 22:45 324 MG Azithromycin 500 mg/Sodium Chloride 250 ml @ 250 mls/hr ONCE ONCE IV 07/11/18 22:00 07/11/18 22:59 DC 07/11/18 22:47 250 MLS/HR Ceftriaxone Sodium 1000 mg/ Sterile Water 10 ml @ 200 mls/hr ONCE ONCE IV 07/11/18 22:00 07/11/18 22:02 DC 07/11/18 22:47 200 MLS/HR Enoxaparin Sodium 100 mg ONCE ONCE SC 07/11/18 23:15 07/11/18 23:16 DC 07/11/18 23:11 100 MG Fentanyl Citrate 25 mcg ONCE ONCE IVP 07/11/18 23:15 07/11/18 23:16 DC 07/11/18 23:10 25 MCG Fentanyl Citrate 50 mcg ONCE ONCE IVP 07/12/18 01:45 07/12/18 01:46 DC 07/12/18 01:48 50 MCG Furosemide 40 mg ONCE ONCE IVP 07/12/18 02:30 07/12/18 02:31 DC 07/12/18 02:25 40 MG Iohexol 150 ml ONCE ONCE IV 07/11/18 23:30 07/11/18 23:31 DC 07/11/18 23:40 125 ML Metoprolol Tartrate 5 mg ONCE ONCE IV 07/11/18 23:15 07/11/18 23:16 DC 07/11/18 23:10 5 MG Nitroglycerin 0.4 mg NEEDED PRN SL 07/11/18 22:45 07/11/18 22:46 0.4 MG Sodium Chloride 100 ml ONCE ONCE IV 07/11/18 23:30 07/11/18 23:31 DC 07/11/18 23:40 80 ML Vital Signs/I&O 07/11/18 07/11/18 07/11/18 07/11/18 21:48 21:48 21:49 22:44 Temp 99.6 99.6 99.6 Pulse 150 150 Resp 26 26 B/P (MAP) 155/85 (108) 155/85 Pulse Ox 90 90 90 O2 Delivery Nasal Cannula High Flow NC O2 Flow Rate 4.00 4.00 4.00 FiO2 90 07/12/18 07/12/18 01:30 01:45 Pulse 115 113 Resp 26 33 B/P (MAP) 141/64 (89) 128/81 (97) Pulse Ox 96 96 O2 Flow Rate 6.00 6.00 07/12/18 00:00 Intake Total 10 ml Balance 10 ml Capillary Refill : Progress Note #1: Time: 22:07 Progress Note Patient's having chest pain shortness of breath with a history of an atrial thrombus but no history of pulmonary embolism or DVT. With her fever this makes pulmonary embolism less likely. Her oxygenation was in the mid to upper 70s on room air so we'll get an ABG chest x-ray and labs. Her lung sound fairly clear but we'll try a DuoNeb and see if that helps. Her rapid heart rate is more likely due to sepsis or fluid volume than A. fib with rapid ventricular response so we'll start with a fluid bolus of 20 mL/kg. Septic workup. Rocephin and azithromycin as I suspect that pneumonia would be the most likely cause. We' ll add a d-dimer and get a CT angiogram of the chest as necessary to rule out a pulmonary embolism however she is allegedly on Eliquis. We will give her some aspirin which will help with her fever as well as get an EKG and troponin. Influenza swab. 4 L of nasal cannula brought her up to about 92-94%. March 2017 HEMA demonstrating an echogenic density in the left atrial appendage 1.7 x 1 cm most likely thrombus. EF was 60%. This is when the patient was started on Coumadin. Cardiac catheterization February [address] West: Calcified coronary system with a patent stent in the proximal and mid LAD, mild to moderate disease at the distal LAD not amenable to intervention. Calcified coronary system with mild to moderate disease in the occiput and mid right coronary artery with a 50% lesion of the distal right coronary artery just above the bifurcation unchanged from previous year. Mild to moderate proximal and distal circumflex artery disease. Mildly elevated left ventricular end-diastolic pressure. Unfortunately the patient was unable to be admitted at the local hospital secondary to being on ICU diversion. Single dose of nitroglycerin did nothing to the patient's blood pressure nor her pain so we'll give her 25 g fentanyl. Progress Note #2: Time: 23:25 Progress Note After a good portion of her IV fluids her and she still tachycardia in the 140- 150 range so we gave her 5 mg of metoprolol. Her profound hypoxia without CO2 retention or appreciable pneumonia makes me further suspicious for a pulmonary embolism. It would be unlikely given the fact she is on Eliquis however given that she is a poor historian I am not certain whether she's taking her meds appropriately. She says she has not taken her evening meds tonight and presented at 10:00. Either way since she hasn't had her Eliquis we're going to give her Lovenox 1 mg/kg and obtain a CT angiogram. For now the patient is stable with a good blood pressure of 150/80. For her 4 out of 10 pain we will give her 25 g of fentanyl. Progress Note #3: Time: 01:08 Progress Note Heart rate is starting to go up into the 120-130 range so initiated Cardizem drip at 5 mg per hour. Patient is comfortable at this time. Progress Note #4: Time: 02:19 Progress Note Patient desats into the mid 80s just with getting up to try and go to the bathroom. She's [place] since she's been here. Her oxygen saturation is sitting about 94% on 6 L by simple mask which is a decrease from 96-98. She has some crackles auscultated on the base and her BNP is elevated. Really give her a single dose of Lasix since her blood pressure is now significantly elevated with a map of 128 followed by the most recent blood pressure map of 133. ECG Initial ECG Impression Date: Jul 11, 2018 Initial ECG Impression Time: 22:13 Initial ECG Rate: 145 Initial ECG Rhythm: A Fib/Flutter Initial ECG Intervals: QT (481) Initial ECG Impression: Atrial Fibrillation (tachycardia) Initial ECG Comparisson: Changed Comment Patient is atrial fibrillation with a very rapid rate and ST depression in leads 2, 3 and aVF. Concern for inferior/posterior SD. Discuss concerns with cardiology and they recommend treating chest pain with morphine and nitroglycerin as needed and will forward a copy to them. Diagnostic Imaging Diagonstic Imaging: Xray Plain Films/CT/US/NM/MRI: chest (1v) Comments Stable right hemidiaphragm elevation but no acute infiltrate. Reviewed: Reviewed by Me Diagonstic Imaging: CT (angio) Plain Films/CT/US/NM/MRI: chest Comments Respiratory motion artifact limits and sensitivity. No acute PE identified given the caveat. Mild ectatic ascending thoracic aorta measuring 4.1 cm. No acute aortic syndrome. Bilateral interstitial and alveolar edema. Trace bilateral pleural effusions left greater than right. Reviewed: Reviewed by Me Consults Consults : Consulting Physician: Jaime OH MD Consults Notes Discussed the case and EKG with Dr. Oh. He recommends continue to treat her for the likely sepsis and continue her aspirin with when necessary nitroglycerin /morphine and transport for inpatient stay. She will go back to Dr. West in the morning. Departure Impression Primary Impression: Type [address] elevation Additional Impressions: Sepsis Qualified Codes: A41.9 - Sepsis, unspecified organism Chest pain Qualified Codes: R07.9 - Chest pain, unspecified Hypoxia Atrial fibrillation with rapid ventricular response Pneumonia Qualified Codes: J18.9 - Pneumonia, unspecified organism UTI (urinary tract infection) Qualified Codes: N30.00 - Acute cystitis without hematuria Disposition: 02 XFER SHT-TRM HOSP Condition: Stable Transfer Time Spoke to Accepting Phy: 00:55 Transfer Progress Notes 0015: Called left a voicemail with [facility] transfer team. 0030: [facility] [place] is at capacity. 0040: [facility] 0045: Balj[facility]; Dr Gary, Cardiology consulted and agrees that is is likely a viral or other infection with resultant AFib c RVR leading to demand ischemia and chest pain and would admit to [facility] and Cards will consult. 0055: Dr Worley, , Accepts the patient. 0100: Updated [facility] that we found placement. Transfer Time: 02:40 Transfer Facility: [facility] [place] Method of Transfer: EMS Departure-Patient Inst. Referrals: GEE AMADO MD (PCP/Family) Primary Care Physician Copy Copies To 1: JUSTICE WADE TITUS J Jul 11, 2018 22:04
[2018-07-11 22:21] LABS: BASOPHILS # (AUTO) 0.1 10^3/uL (0.0-0.1); BASOPHILS % (AUTO) 0 % (0-10); EOSINOPHILS # (AUTO) 0.1 10^3/uL (0.0-0.3); EOSINOPHILS % (AUTO) 1 % (0-10); HEMATOCRIT 40 % (35-52); HEMOGLOBIN 12.1 G/DL (11.5-16.0); LYMPHOCYTES # (AUTO) 1.2 X 10^3 (1.0-4.0); LYMPHOCYTES % (AUTO) 10 % (12-44); MEAN CORPUSCULAR HEMOGLOBIN 27 PG (25-34); MEAN CORPUSCULAR HGB CONC 31 G/DL (32-36); MEAN CORPUSCULAR VOLUME 87 FL (80-99); MONOCYTES # (AUTO) 0.4 X 10^3 (0.0-1.0); MONOCYTES % (AUTO) 4 % (0-12); NEUTROPHILS % (AUTO) 85 % (42-75); PLATELET COUNT 174 10^3/uL (130-400); RED CELL DISTRIBUTION WIDTH 14.3 % (10.0-14.5); WHITE BLOOD COUNT 11.8 10^3/uL (4.3-11.0)
[2018-07-11] MEDS ORDERED: NITROGLYCERIN 0.4 MG SL TABS BTL 25'S SL PRN (22:45)
[2018-07-11 22:49] LABS: ALBUMIN 4.1 GM/DL (3.2-4.5); BILIRUBIN,TOTAL 0.7 MG/DL (0.1-1.0); CALCIUM 9.6 MG/DL (8.5-10.1); CREATININE SERUM 1.04 MG/DL (0.60-1.30); POTASSIUM 4.4 MMOL/L (3.6-5.0); TOTAL PROTEIN 8.2 GM/DL (6.4-8.2)
[2018-07-11 22:52] LABS: ABG PCO2 37 MMHG (35-45); ABG PH 7.48 (7.37-7.43); ABG PO2 61 MMHG (79-93); ABG TCO2 28.7 MMOL/L (21.0-31.0)
[2018-07-11 22:53] LABS: ABG OXYGEN SATURATION 93 % (94-100); ALLENS TEST POS; INSPIRED O2 5L; PATIENT TEMP 99.6; VENTILATOR NO
[2018-07-11] MEDS ORDERED: NS IV 1000 ML 1,000 ML IV STA ×2 (23:04)
[2018-07-11] MEDS ORDERED: meTOprolol 5 MG/5 ML (LOPRESSOR) VIAL IV ONE (23:15)
[2018-07-11] MEDS ORDERED: fentaNYL INJECTION 100 MCG/2 ML AMP IVP ONE (23:15)
[2018-07-11] MEDS ORDERED: ENOXAPARIN 100 MG/1 ML (LOVENOX) SYR SC ONE (23:15)
[2018-07-11 23:21] LABS: FIBRIN DEGRADATION PRODUCTS 1.22 UG/ML (0.00-0.49); INR 1.1 (0.8-1.4); PROTHROMBIN TIME PATIENT 14.8 SEC (12.2-14.7)
[2018-07-11] MEDS ORDERED: HOLD METFORMIN - RECEIVED CONTRAST 20 ML VIAL IV SCH (23:30)
[2018-07-11] MEDS ORDERED: IOHEXOL 350 MG/ML 150 ML (OMNIPAQUE 350) VIAL IV ONE (23:30)
[2018-07-11] MEDS ORDERED: NS 100 ML (IVPB) BAG IV ONE (23:30)
[2018-07-12] MEDS ORDERED: ELIQUIS 5 MG (00:15)
[2018-07-12] MEDS ORDERED: NS IV 1000 ML 1,000 ML IV SCH (00:30)
[2018-07-12 00:41] LABS: CLARITY,URINE SL CLOUDY; COLOR,URINE YELLOW; PH,URINE 5.5 (5-9); PROTEIN,URINE 3+ (NEGATIVE)
[2018-07-12 00:42] LABS: BILIRUBIN,URINE NEGATIVE (NEGATIVE); GLUCOSE, URINE (UA) 1+ (NEGATIVE); KETONES,URINE NEGATIVE (NEGATIVE); NITRITE,URINE NEGATIVE (NEGATIVE); UROBILINOGEN,URINE 0.2 MG/DL (NORMAL)
[2018-07-12 00:53] LABS: BACTERIA,URINE MODERATE /HPF; LEUKOCYTE ESTERASE ,URINE TRACE (NEGATIVE); RBC,URINE 0-2 /HPF; WBC,URINE 50-100 /HPF
[2018-07-12] MEDS ORDERED: NS 1000 ML IV BAG IV ONE (01:00)
[2018-07-12] MEDS ORDERED: DILTIAZEM INJECTION 125 MG in NS (IVPB) 100 ML IV SCH (01:15)
[2018-07-12 01:30] VITALS: BP 141/64
[2018-07-12] MEDS ORDERED: fentaNYL INJECTION 100 MCG/2 ML AMP ONE (01:40)
[2018-07-12 01:45] VITALS: BP 128/81
[2018-07-12] MEDS ORDERED: fentaNYL INJECTION 100 MCG/2 ML AMP IVP ONE (01:45)
[2018-07-12] MEDS ORDERED: FUROSEMIDE 40 MG/4 ML INJ (LASIX) IVP ONE (02:30)
[2018-07-12 02:40] VITALS: BP 142/113
--- NOTE | 2018-07-12 06:01 | Diagnostic Imaging Report ---
PROCEDURE: CT angiography of the chest with contrast. TECHNIQUE: Multiple contiguous axial images were obtained through the chest after uneventful bolus administration of intravenous contrast. 2D reconstructed CTA MIP acquisitions were also performed. Auto Exposure Controls were utilized during the CT exam to meet ALARA standards for radiation dose reduction. INDICATION: Shortness of breath. Fever. Chest pain. COMPARISON: FINDINGS: Examination is limited by both motion and contrast timing. No large or central pulmonary emboli. No thoracic aortic aneurysm or dissection. Low lung volumes with geographic airspace opacities throughout both lungs. Small bilateral pleural effusions. Cardiomegaly. No mediastinal, hilar or axillary lymphadenopathy. No acute osseous findings. Cholecystectomy. Nodular contour of liver. IMPRESSION: 1. Examination limited by motion artifact and contrast timing. No large or central pulmonary emboli. No thoracic aortic aneurysm or dissection. 2. Geographic groundglass opacities consistent with alveolar edema. Small bilateral pleural effusions. 3. Nodular contour of liver suggest chronic liver disease. Dictated by: Dictated on workstation # [id number]
--- NOTE | 2018-07-12 06:58 | Diagnostic Imaging Report ---
EXAM: CHEST 1 VIEW AP/PA ONLY INDICATION: Fever. Shortness of air. COMPARISON: Chest radiograph 03/09/2018 FINDINGS: Low lung volumes accentuate the heart size and central pulmonary vascularity. Perihilar and bibasilar atelectasis. No definite pleural effusion or pneumothorax. No acute osseous findings. Postoperative changes in the cervical spine. IMPRESSION: Examination limited by low lung volumes. Perihilar and bibasilar atelectasis. Cardiomegaly with prominent central pulmonary vascularity. Dictated by: Dictated on workstation # [id number]
== END 2018-07-12 02:40 | disposition short-term general hospital (02) ==
LOC: EDUNIT# 21:46 → ER FS 21:48
DX: I21.A1 Myocardial infarction type 2 (principal); A41.9 Sepsis, unspecified organism; R07.9 Chest pain, unspecified; I48.91 Unspecified atrial fibrillation; J18.9 Pneumonia, unspecified organism; N39.0 Urinary tract infection, site not specified; E11.9 Type 2 diabetes mellitus without complications; K21.9 Gastro-esophageal reflux disease without esophagitis; E78.5 Hyperlipidemia, unspecified; I25.10 Atherosclerotic heart disease of native coronary artery without angina pectoris; I11.0 Hypertensive heart disease with heart failure; I50.30 Unspecified diastolic (congestive) heart failure; I70.0 Atherosclerosis of aorta; Z88.5 Allergy status to narcotic agent; Z79.82 Long term (current) use of aspirin; Z79.01 Long term (current) use of anticoagulants; Z79.4 Long term (current) use of insulin; Z87.891 Personal history of nicotine dependence; Z95.5 Presence of coronary angioplasty implant and graft; Z87.19 Personal history of other diseases of the digestive system; Z79.02 Long term (current) use of antithrombotics/antiplatelets
CPT/HCPCS: 36415; 51702; 71045; 71275; 80053; 81000; 82805; 83605; 83880; 84484; 85025; 85379; 85610; 85730; 87040; 87088; 87804; 93005; 99291

== ENCOUNTER 2018-07-21 18:04 | Inpatient (IN) | payer MEDICARE, OTHER ==
[~2018-07-21] VITALS: Ht 162.6 cm; Wt 99.4 kg
[~2018-07-21 18:04] MED LIST changes: +ELIQUIS 5 MG
--- NOTE | 2018-07-21 18:08 | NUR ---
Patient arrived via EMS with external pacing in process. IV in R AC with NS bolus running. BP 80's systolic for EMS, 97% O2 sats. Patient lethargic but oriented x 3. Recently discharged from [facility] after having afib with RVR and was cardioverted. States she woke up feeling bad today. at bedside states he took her pulse and O2 sats this morning and they were "fine." He took them about an hour ago and was unable to get a reading and O2 sats were low. He tried taking BP and was unable to get a reading and called EMS.
[2018-07-21] MEDS ORDERED: NS (IVPB) 250 ML ONE (18:12)
[2018-07-21] MEDS ORDERED: NOREPINEPHRINE 4 MG/4 ML (LEVOPHED) AMP IV ONE (18:12)
--- NOTE | 2018-07-21 18:30 | NUR ---
[facility] unable to transport a patient being externally paced. Call placed for [facility] helicopter per Dr Valentin.
[2018-07-21] MEDS ORDERED: fentaNYL INJECTION 100 MCG/2 ML AMP ONE (18:37)
--- NOTE | 2018-07-21 18:41 | NUR ---
Femoral pulse palpated for one minute with pulse of 34. Increased external pacer to 90ma. Notified Dr Valentin.
--- NOTE | 2018-07-21 18:42 | ED Chest Pain ---
General Chief Complaint: Cardiac/General Problems Stated Complaint: SOB Nursing Triage Note: was recently in [place] for afib rvr and started on amiodarone. Also takes diltiazem and eliquis. Was sent home two days ago. [place] fine yesterday. Woke up feeling lethargic and "bad" today. Brought in by EMS being externally paced. HR was 30 when EMS arrived. Is being paced at 60. BP 80's systolic for EMS Nursing Sepsis Screen: No Definite Risk Source: patient Exam Limitations: clinical condition History of Present Illness Date Seen by Provider: July 21, 2018 Time Seen by Provider: 18:10 Initial Comments 62 yr old female with hx of recent admission to [facility] when an ICU bed was not available at [facility]. She was discharged after atrial fibrillation with RVR. She started her amiodarone and diltiazem today. She began feeling weak and dizzy. She called EMS when she felt like she was going to pass out. He arrived and found her to be hypotensive and a heart rate in the 30s. She did not respond to atropine. External pacing was begun. Her pressure had improved to the 80s and 90s by the time of her arrival here. She denies any chest pain or other cardiovascular symptoms except as described. She is also on Eloquis. She states she is breathing fine. Allergies and Home Medications Allergies Coded Allergies: morphine (Verified Adverse Reaction, Severe, hallucination, 07/12/18) Home Medications Amlodipine Besylate 10 Mg Tablet, 10 MG PO DAILY, (Reported) Aspirin 81 Mg Tablet.dr, 81 MG PO DAILY, (Reported) Atorvastatin Calcium 40 Mg Tablet, 40 MG PO HS, (Reported) Cinnamon Bark 500 Mg Capsule, 500 MG PO BID, (Reported) Clonidine HCl 0.1 Mg Tablet, 0.1 MG PO BID, (Reported) Clopidogrel Bisulfate 75 Mg Tablet, 75 MG PO DAILY, (Reported) Cyclobenzaprine HCl 10 Mg Tablet, 20 MG PO TID PRN for MUSCLE SPASMS, (Reported) Docusate Sodium 100 Mg Capsule, 100 MG PO BID PRN for CONSTIPATION-1ST LINE, ( Reported) Fenofibrate,Micronized 134 Mg Capsule, 134 MG PO HS, (Reported) Furosemide 40 Mg Tablet, 40 MG PO DAILY, (Reported) Gabapentin 600 Mg Tablet, 600 MG PO TID, (Reported) Hydrocodone/Acetaminophen 1 Each Tablet, 1 TAB PO TID PRN for PAIN-MODERATE, ( Reported) Insulin Aspart 300 Units/3 Ml Solution, SQ AC, (Reported) USES 1 UNIT FOR EVERY 2 POINTS OVER 100 BS Insulin Determir 1,000 Units/10 Ml Soln, 80 UNITS SQ BID, (Reported) Isosorbide Mononitrate 60 Mg Tab, 60 MG PO DAILY, (Reported) Lisinopril 20 Mg Tablet, 20 MG PO BID, (Reported) Lutein 20 Mg Tablet, 20 MG PO DAILY, (Reported) Magnesium Oxide 400 Mg Tablet, 400 MG PO HS, (Reported) Metoprolol Tartrate 100 Mg Tablet, 100 MG PO BID, (Reported) Multivitamin-Min/Iron/FA/Vit K 1 Each Tablet, 1 EACH PO DAILY, (Reported) [place]-3/Dha/Epa/Fish Oil 1 Each Capsule, 1 EACH PO HS, (Reported) Pantoprazole Sodium 40 Mg Tablet.dr, 40 MG PO DAILY, (Reported) Potassium Gluconate 99 Mg Tablet, 99 MG PO DAILY, (Reported) Primidone 50 Mg Tablet, 50 MG PO HS, (Reported) Warfarin Sodium 5 Mg Tablet, 10 MG PO HS, (Reported) Patient Home Medication List Home Medication List Reviewed: Yes Review of Systems Review of Systems Constitutional: see HPI, weakness EENTM: No Symptoms Reported Respiratory: No Symptoms Reported Cardiovascular: See HPI; Denies Chest Pain Gastrointestinal: No Symptoms Reported Genitourinary: No Symptoms Reported Musculoskeletal: no symptoms reported Skin: no symptoms reported Psychiatric/Neurological: See HPI, Anxiety Endocrine: No Symptoms Reported Hematologic/Lymphatic: No Symptoms Reported Past Tigwvbv-Vmllxr-Siavzv Hx Past Med/Social Hx: Reviewed Nursing Past Med/Soc Hx Patient Social History Type Used: Cigarettes Former Smoker, Quit: Mar 24, 1997 2nd Hand Smoke Exposure: No Recent Foreign Travel: No Contact w/Someone Who Travel: No Recent Infectious Disease Expo: No Recent Hopitalizations: No Immunizations Up To Date Date of Pneumonia Vaccine: Mar 05, 2013 Date of Influenza Vaccine: Dec 11, 2014 Seasonal Allergies Seasonal Allergies: No Past Medical History Surgeries: Yes (neck and back surgeries) Coronary Stent, Orthopedic Respiratory: No Cardiac: Yes Coronary Artery Disease, High Cholesterol, Hypertension Neurological: No Reproductive Disorders: No Genitourinary: No Gastrointestinal: No Gastroesophageal Reflux, Pancreatitis Musculoskeletal: Yes Chronic Back Pain Endocrine: Yes Diabetes, Insulin dep, Diabetes, Non-Insulin dep HEENT: No Hearing Impairment: Denies Cancer: No Psychosocial: No Integumentary: No Blood Disorders: No Family Medical History No Pertinent Family Hx Physical Exam Vital Signs Vital Signs - First Documented 07/21/18 18:07 Temp 97.1 Pulse 60 Resp 19 B/P (MAP) 92/56 (68) O2 Delivery Room Air Capillary Refill : Less Than 3 Seconds Height, Weight, BMI Height: 5'4.00" Weight: 223lbs. 0.0oz. 101.752478cm; 36.4 BMI Method:Stated General Appearance: WD/WN, Anxious, Mild Distress, Obese HEENT: PERRL/EOMI, TMs Normal, Normal ENT Inspection, Pharynx Normal Neck: Full Range of Motion, Normal Inspection, Non Tender Respiratory: Lungs Clear, Decreased Breath Sounds Cardiovascular: No JVD, No Murmur, Bradycardia Gastrointestinal: Normal Bowel Sounds, No Organomegaly, No Pulsatile Mass, Non Tender, Soft Extremity: Normal Capillary Refill, Normal Inspection, Normal Range of Motion, Non Tender, No Calf Tenderness Neurologic/Psychiatric: Alert, Oriented x3 Skin: Normal Color, Warm/Dry Lymphatic: No Adenopathy Critical Care Note Critical Care Start Time: 18:10 Total Time (minutes) 40 Progress Patient was critically ill. Her pacing was not perfusing. The patient's pacer was increased in intensity. Levophed was started. Her pressure improved from the 70s to low 100s. ALS EMS is not available. Due to nonavailability of appropriate ground transfer, will send by med flight. Progress/Results/Core Measures Results/Orders My Orders Orders - JULISSA HYDE MD Norepinephrine (Levophed) (07/21/18 18:12) Ns (Ivpb) (Sodium Chloride 0.9%) (07/21/18 18:12) Vital Signs/I&O 07/21/18 18:07 Temp 97.1 Pulse 60 Resp 19 B/P (MAP) 92/56 (68) O2 Delivery Room Air Blood Pressure Mean: 68 Progress Progress Note : Time: 18:46 Progress Note Patient presented unstable. Adjustment to pacemaker intensity improved perfusion of pulse and blood pressure. She remained hypotensive so Levophed was instituted. She had a positive response to this. Her oxygen saturation has been satisfactory. I called and discussed with [facility] one call who would not accept the phone call. I called Dr. Oh who returned the call and agreed to see the patient in the ICU at [facility]. Dr. Hobbs was contacted and accepted the patient has hospitalist admission. Ground advanced life support EMS was not available due to being on another call. Attempt was made to get another ground unit. This was not successful. For appropriate care and safety of the patient, helicopter EMS is contacted and will respond. I discussed this with the patient who understands and agrees. Initial ECG Impression Date: July 21, 2018 Initial ECG Impression Time: 18:04 Initial ECG Impression: Atrial Fibrillation Comment Atrial fibrillation with profound bradycardia with pacemaker off. [place] heart rate 34. No injury pattern noted. Consults : Consulting Physician: Jaime OH MD Consults Notes Accepts patient for transfer to ICU. Contacted Dr. Hobbs for hospitalist admission involvement as well. Departure Impression Primary Impression: Atrial fibrillation Qualified Codes: I48.91 - Unspecified atrial fibrillation Additional Impressions: Bradycardia Hypotension Qualified Codes: I95.2 - Hypotension due to drugs Cardiogenic shock Disposition: ADMITTED INPATIENT Condition: Critical Admissions Decision to Admit Reason: Admit from ER (General) Decision to Admit/Date: July 21, 2018 Time/Decision to Admit Time: 18:52 Transfer Method of Transfer: Air Departure-Patient Inst. Referrals: GEE AMADO MD (PCP/Family) Primary Care Physician JULISSA HYDE MD July 21, 2018 18:42
[2018-07-21] MEDS ORDERED: NS IV 1000 ML 1,000 ML IV SCH (18:45)
[2018-07-21] MEDS ORDERED: NOREPINEPHRINE 4 MG in NS (IVPB) 250 ML IV SCH (18:45)
--- NOTE | 2018-07-21 18:55 | Diagnostic Imaging Report ---
INDICATION: Shortness of breath. TIME OF EXAM: 6:49 p.m. COMPARISON: Correlation is made with prior study from 07/11/2018. FINDINGS: External pacers overlie the mid and left chest. No infiltrate or failure is seen. There is no effusion or pneumothorax. There are postop changes in the lower cervical spine. The heart is enlarged. IMPRESSION: No acute cardiopulmonary process is detected. Dictated by: Dictated on workstation # [id number]
[2018-07-21 18:56] LABS: HEMATOCRIT 39 % (35-52); HEMOGLOBIN 11.6 G/DL (11.5-16.0); MEAN CORPUSCULAR HEMOGLOBIN 26 PG (25-34); MEAN CORPUSCULAR HGB CONC 29 G/DL (32-36); MEAN CORPUSCULAR VOLUME 89 FL (80-99); MEAN PLATELET VOLUME 10.9 FL (7.4-10.4); PLATELET COUNT 396 10^3/uL (130-400); WHITE BLOOD COUNT 12.6 10^3/uL (4.3-11.0)
[2018-07-21 18:57] LABS: BASOPHILS # (AUTO) 0.1 10^3/uL (0.0-0.1); BASOPHILS % (AUTO) 1 % (0-10); EOSINOPHILS # (AUTO) 0.2 10^3/uL (0.0-0.3); EOSINOPHILS % (AUTO) 2 % (0-10); LYMPHOCYTES # (AUTO) 2.9 X 10^3 (1.0-4.0); LYMPHOCYTES % (AUTO) 23 % (12-44); MONOCYTES # (AUTO) 0.6 X 10^3 (0.0-1.0); MONOCYTES % (AUTO) 5 % (0-12); NEUTROPHILS # (AUTO) 8.5 X 10^3 (1.8-7.8); NEUTROPHILS % (AUTO) 68 % (42-75)
[2018-07-21] MEDS ORDERED: fentaNYL INJECTION 100 MCG/2 ML AMP IVP ONE ×2 (19:00→19:30)
[2018-07-21 19:01] LABS: INR 1.1 (0.8-1.4); PROTHROMBIN TIME PATIENT 14.8 SEC (12.2-14.7)
--- NOTE | 2018-07-21 19:05 | NUR ---
[facility] here for patient transport to [facility]. Patient will be going straight to [facility]. is at bedside and is aware of plan for patient and is planning on traveling to [facility].
[2018-07-21] MEDS ORDERED: HEParin (CATH LAB) 1,000 ML IV ONE (19:11)
[2018-07-21] MEDS ORDERED: LIDOCAINE 1% INJ 20 ML 20 ML VIAL ONE (19:11)
[2018-07-21] MEDS ORDERED: ATROPINE INJ 0.4 MG/ML SDV ONE (19:14)
--- NOTE | 2018-07-21 19:26 | NUR ---
[facility] to [facility].
[2018-07-21 19:28] LABS: BAND NEUTROPHILS 6 %; BASOPHILS % (MANUAL) 0 %; EOSINOPHILS % (MANUAL) 1 %; LYMPHOCYTES % (MANUAL) 29 %; METAMYELOCYTES % 0 %; MONOCYTES % (MANUAL) 4 %; MYELOCYTES % 1 %; NEUTROPHILS % (MANUAL) 59 %
[2018-07-21] MEDS ORDERED: ATROPINE INJ 0.4 MG/ML SDV IV ONE (19:30)
[2018-07-21 19:41] LABS: POTASSIUM 5.6 MMOL/L (3.6-5.0)
[2018-07-21 19:42] LABS: BILIRUBIN,TOTAL 0.3 MG/DL (0.1-1.0); CALCIUM 9.3 MG/DL (8.5-10.1); CREATININE SERUM 2.42 MG/DL (0.60-1.30); TOTAL PROTEIN 7.7 GM/DL (6.4-8.2)
[2018-07-21 19:43] LABS: ALBUMIN 3.4 GM/DL (3.2-4.5)
--- NOTE | 2018-07-21 20:23 | Consultation-Cardiology ---
HPI-Cardiology Cardiology Consultation: Date of Consultation 07/21/18 Date of Admission Attending Physician Jaime Garsia MD Admitting Physician Obdulio Cabral MD Consulting Physician Jaime GARSIA MD HPI: Time Seen by a Provider: 20:23 Chief Complaint: Near syncope This is a 62-year-old lady who is a patient of Dr. West. She recently had paroxysmal atrial fibrillation with rapid ventricular rate and was transferred from [facility] to [facility]. We're she was started on amiodarone and diltiazem. She was discharged 2 days ago. Today she felt very weak and almost passed out. EMS were called who found her to be bradycardic with a heart rate of 30 and a systolic blood pressure of below 70 mmHg. She was taken to [facility]. IV atropine did not work. Transcutaneous pacing was initiated with intermittent capture. Patient was in shock with systolic blood pressure of 70 mmHg and levo fed was started. Patient was emergently transferred to our hospital. Review of Systems-Cardiology Review of Systems Constitutional: As described under HPI; No As described under HPI, No no symptoms reported, No chills, No fever, No lightheadedness Eyes: No As described under HPI, No no symptoms reported, No blindness, No blurred vision, No contact lenses, No drainage, No decreased acuity, No foreign body sensation, No pain, No vision change Ears/Nose/Throat: No As described under HPI, No no symptoms reported, No chronic hearing loss, No ear discharge, No ear pain, No nasal drainage, No ulcerations Respiratory: No no symptoms reported; As described under HPI; No As described under HPI, No cough, No orthopnea, No shortness of breath, No SOB with excertion Cardiovascular: No no symptoms reported; As described under HPI; No As described under HPI, No chest pain, No edema, No irregular heart rate, No lightheadedness, No palpitations; syncope Gastrointestinal: No no symptoms reported, No As described under HPI, No abdomen distended, No abdominal pain, No blood streaked bowels, No constipation , No diarrhea, No nausea, No vomiting, No stool coloration changes Genitourinary: No As described under HPI, No burning, No dysuria, No discharge , No frequency, No flank pain, No hematuria, No urgency : Yes : No Skin: No rash, No skin related problems, No ulcerations Psychiatric/Neurological: No anxiety, No depression, No seizure, No focal weakness, No syncope Hematologic: No bleeding abnormalities SYL-Wmwsdu-Bshkhs Hx Patient Social History Alcohol Use: Denies Use Recreational Drug Use: No Type Used: Cigarettes 2nd Hand Smoke Exposure: No Recent Foreign Travel: No Recent Infectious Disease Expo: No Immunizations Up To Date Date of Pneumonia Vaccine: Mar 05, 2013 Date of Influenza Vaccine: Dec 11, 2014 Past Medical History PMH As described under Assessment. Allergies and Home Medications Allergies Coded Allergies: morphine (Verified Adverse Reaction, Severe, hallucination, 07/12/18) Home Medications Amlodipine Besylate 10 Mg Tablet, 10 MG PO DAILY, (Reported) Aspirin 81 Mg Tablet.dr, 81 MG PO DAILY, (Reported) Atorvastatin Calcium 40 Mg Tablet, 40 MG PO HS, (Reported) Cinnamon Bark 500 Mg Capsule, 500 MG PO BID, (Reported) Clonidine HCl 0.1 Mg Tablet, 0.1 MG PO BID, (Reported) Clopidogrel Bisulfate 75 Mg Tablet, 75 MG PO DAILY, (Reported) Cyclobenzaprine HCl 10 Mg Tablet, 20 MG PO TID PRN for MUSCLE SPASMS, (Reported) Docusate Sodium 100 Mg Capsule, 100 MG PO BID PRN for CONSTIPATION-1ST LINE, ( Reported) Fenofibrate,Micronized 134 Mg Capsule, 134 MG PO HS, (Reported) Furosemide 40 Mg Tablet, 40 MG PO DAILY, (Reported) Gabapentin 600 Mg Tablet, 600 MG PO TID, (Reported) Hydrocodone/Acetaminophen 1 Each Tablet, 1 TAB PO TID PRN for PAIN-MODERATE, ( Reported) Insulin Aspart 300 Units/3 Ml Solution, SQ AC, (Reported) USES 1 UNIT FOR EVERY 2 POINTS OVER 100 BS Insulin Determir 1,000 Units/10 Ml Soln, 80 UNITS SQ BID, (Reported) Isosorbide Mononitrate 60 Mg Tab, 60 MG PO DAILY, (Reported) Lisinopril 20 Mg Tablet, 20 MG PO BID, (Reported) Lutein 20 Mg Tablet, 20 MG PO DAILY, (Reported) Magnesium Oxide 400 Mg Tablet, 400 MG PO HS, (Reported) Metoprolol Tartrate 100 Mg Tablet, 100 MG PO BID, (Reported) Multivitamin-Min/Iron/FA/Vit K 1 Each Tablet, 1 EACH PO DAILY, (Reported) [place]-3/Dha/Epa/Fish Oil 1 Each Capsule, 1 EACH PO HS, (Reported) Pantoprazole Sodium 40 Mg Tablet.dr, 40 MG PO DAILY, (Reported) Potassium Gluconate 99 Mg Tablet, 99 MG PO DAILY, (Reported) Primidone 50 Mg Tablet, 50 MG PO HS, (Reported) Warfarin Sodium 5 Mg Tablet, 10 MG PO HS, (Reported) Patient Home Medication List Home Medication List Reviewed: Yes Physical Exam-Cardiology Physical Exam Vital Signs/I&O 07/21/18 07/21/18 18:07 19:26 Temp 97.1 97.1 Pulse 60 43 Resp 19 23 B/P (MAP) 92/56 (68) 135/101 (112) Pulse Ox 96 O2 Delivery Room Air O2 Flow Rate 3.00 Capillary Refill : Less Than 3 Seconds Constitutional: No appears stated age, No AAO x 3; apparent distress; No PERRL , No well-developed, No well-nourished, No other HEENT: No PERRL, No normal ENT inspection, No TMs normal, No pharynx normal, No scleral icterus (R), No scleral icterus (L), No pale conjunctivae (R), No pale conjunctivae (L), No photophobia, No TM abnormal (R), No TM abnormal (L), No pharyngeal erythema, No tonsillar exudate, No other, No discharge, No EOMI, No hearing is well preserved, No hard of hearing, No oral hygience is good, No ulceration, No xanthelasmas are seen Neck: No non-tender, No full range of motion, No supple, No normal inspection, No carotid bruit, No limited range of motion, No lymphadenopathy (R), No lymphadenopathy (L), No tender lateral, No tender midline, No thyromegaly, No other, No carotid pulses are 2 + bilaterally, No with good upstrokes Respiratory: No accessory muscle use, No respiratory distress, No chest tender , No chest expansion is symmetric; chest is bilaterally symmetric; No lungs clear to percussion; lungs clear to auscultation; No crackles, No rhonchi, No rales, No stridor, No wheezing, No pleural rub, No other Cardiovascular: regular rate-rhythm; No irregularly irregular, No extra beats, No parasternal heave is noted, No JVD, No edema, No bradycardia, No tachycardia , No point of maximal impulse, No cardiac thrills are palpable; S1 and S2; No gallop/S3, No gallop/S4, No diastolic murmur, No systolic murmur, No friction rub, No click, No other Gastrointestinal: No tender, No soft, No round, No distended, No pulsatile mass , No organomegaly, No guarding, No rebound, No tenderness, No hernia, No mass, No audible bowel sounds, No abnormal bowel sounds, No abdominal bruits, No spleenomegaly, No other Rectal: deferred Extremities: No normal range of motion, No non-tender, No normal inspection, No pedal edema, No calf tenderness, No normal capillary refill, No pelvis stable , No calf tenderness, No inflammation, No pedal edema, No slow capillary refill , No swelling, No other, No abrasion, No clubbing, No cyanosis, No ecchymosis, No laceration, No no lower extremity edema bilateral, No significant edema, No tenderness, No wound Neurologic/Psychiatric: no motor/sensory deficits, alert, normal mood/affect, oriented x 3 Skin: cool Data Review Labs Laboratory Tests 07/21/18 18:34: White Blood Count 12.6H, Red Blood Count 4.43, Hemoglobin 11.6, Hematocrit 39, Mean Corpuscular Volume 89, Mean Corpuscular Hemoglobin 26, Mean Corpuscular Hemoglobin Concent 29L, Red Cell Distribution Width 14.0, Platelet Count 396, Mean Platelet Volume 10.9H, Neutrophils (%) (Auto) 68, Lymphocytes (%) (Auto) 23 , Monocytes (%) (Auto) 5, Eosinophils (%) (Auto) 2, Basophils (%) (Auto) 1, Neutrophils # (Auto) 8.5H, Lymphocytes # (Auto) 2.9, Monocytes # (Auto) 0.6, Eosinophils # (Auto) 0.2, Basophils # (Auto) 0.1, Neutrophils % (Manual) 59, Lymphocytes % (Manual) 29, Monocytes % (Manual) 4, Eosinophils % (Manual) 1, Basophils % (Manual) 0, Metamyelocytes % 0, Myelocytes % 1, Band Neutrophils 6, Prothrombin Time 14.8H, INR Comment 1.1, Sodium Level 142, Potassium Level 5.6H , Chloride Level 103, Carbon Dioxide Level 25, Anion Gap 14, Blood Urea Nitrogen 51H, Creatinine 2.42H, Estimat Glomerular Filtration Rate 20, BUN/ Creatinine Ratio 21, Glucose Level 82, Calcium Level 9.3, Corrected Calcium 9.8 , Total Bilirubin 0.3, Aspartate Amino Transf (AST/SGOT) 72H, Alanine Aminotransferase (ALT/SGPT) 55, Alkaline Phosphatase 113, Troponin T 46H, Total Protein 7.7, Albumin 3.4 ECG Impression ECG Initial ECG Impression: Atrial Fibrillation A/P-Cardiology Assessment/Admission Diagnosis Severe bradycardia, Atrial fibrillation, Cardiogenic shock, CAD, PCI Plan Severe bradycardia, temporary pacemaker is urgently recommended. Atrial fibrillation, hold beta eliseo and calcium channel eliseo. Continue liquids. Cardiogenic shock, gradually taper off non-epinephrine. CAD, PCI, deferred to Dr. West. Critically ill patient, admitted to the ICU. Over 35 minutes for taking care of this patient. Thank you for your consultation. Please call me if you have any questions. Clayton Garsia MD, FACP, FACC, FSCAI, FHRS, CCDS Interventional Cardiology Cardiac Electrophysiology Vascular Medicine and Endovascular Interventions Jaime GARSIA MD July 21, 2018 20:23
[2018-07-21] MEDS ORDERED: PATIENT MAY USE OWN MEDS, ALL PO SCH (20:30)
--- NOTE | 2018-07-21 20:31 | Cardiology Post Procedure Note ---
Post-Procedure Note Physician (s)/Nut Roaster Helper (s) Physician Jaime GARSIA MD Pre-Procedure Diagnosis Pre-Procedure Diagnosis: Severe bradycardia, atrial fibrillation, cardiogenic shock Post-Procedure Note Procedure Start Date: July 21, 2018 Procedure Start Time: 20:09 Name of Procedure: Central venous access in the right femoral vein, Temporary pacemaker placement. Findings/Procedure Note This is a 62-year-old lady with history of CAD, paroxysmal atrial fibrillation on amiodarone, metoprolol and Cardizem. She presented to the ER in [place] with severe bradycardia, hypotension and near syncope. She was transferred to her hospital for urgent placement of a temporary pacemaker. Informed consent was taken. She was draped and prepped in the usual sterile fashion. Access was gained in the right femoral vein with a [address] balloon tipped [address] [place] temporary pacemaker was placed in the distal septal portion of the RV. Excellent capture threshold were confirmed. The temporary pacemaker was sutured in place. Levophed infusion was decreased to 0.25 g. Systolic blood pressure of 124 mmHg was confirmed. Patient will be admitted to the ICU. Estimated blood loss (mL): 0 Contrast Amount: 0 Post-Procedure Diagnosis Post-operative diagnosis: Severe bradycardia, atrial fibrillation, cardiogenic shock, Status post temporary pacemaker placement. Jaime GARSIA MD July 21, 2018 20:31
--- NOTE | 2018-07-21 20:45 | NUR ---
NEELIMA BREANN admitted to room CU6-1, with an admitting diagnosis of BRADYCARDIA WITH CARDIOGENIC SHOCK , on 07/21/18 from [facility], accompanied by .NEELIMA CRAIN introduced to surroundings, call light, bed controls, phone, TV, temperature control, lights, meal times, smoking policy, visitor policy, side rail policy, bathrooms and showers. Patient Rights given to patient in the handbook.NEELIMA CRAIN verbalizes understanding that [facility] is not responsible for the loss or damage to any personal effects or valuables that are kept in the patients posession during their hospitalization. The following Patient Care Plans were discussed with the : Discharge Planning, ,, and . NEELIMA CRAIN verbalizes understanding of Interdisciplinary Patient Education. Patient and/or family were informed about the Rapid Response Team and its purpose.
--- OUTSIDE RECORDS SUMMARY | 2018-07-21 20:56 | XMS REPORT ---
Author Author Migration, Doctor Organization [facility] Address Unknown Phone Unavailable Care Team Providers Care Credit Product Analyst Name Role Phone Migration, Doctor Unavailable Unavailable PROBLEMS Type Condition ICD9-CM Code GRJ44-ZC Code Onset Dates Condition Status SNOMED Code Problem Coronary artery disease involving stillaguamish coronary artery of stillaguamish heart without angina pectoris I25.10 Active 3868331809151 Problem Paresthesias in right hand R20.2 Active 986363098 Problem Type 2 diabetes mellitus without complications E11.9 Active 033000289 Problem Type 2 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, unspecified E11.40 Active 35820075 Problem Hyperlipidemia, unspecified hyperlipidemia type E78.5 Active 72678740 Problem Chronic kidney disease, unspecified CKD stage N18.9 Active 186794438 Problem Neck pain M54.2 Active 32502311 Problem Essential hypertension I10 Active 37155945 Problem GERD (gastroesophageal reflux disease) K21.9 Active 062551181 Problem residential 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 Active 089527254 ALLERGIES No Information ENCOUNTERS Encounter Location Date Diagnosis [place] [id number] [place] [address] 57487- 1722 May, [place] [id number] [place] [address] 39127- 5555 Apr, [place] [address] [place] [id number] [place] [address] 67084- 7044 Apr, [facility] [address] [place] [address] [id number] [place] [address] 85489- 7645 Mar, Type 2 diabetes mellitus without complications E11.9 [facility] [address] [place] [address] [id number] [place] [address] 95163- 5891 Mar, Type 2 diabetes mellitus without complications E11.9 [facility] [address] [place] [address] [id number] [place] [address] 73211- 3046 Mar, Type 2 diabetes mellitus without complications E11.9 [facility] [id number] [place] [address] 04033- 5375 Feb, Essential (primary) hypertension I10 [facility] [address] [place] [id number] [place] [address] 55468- 7948 Feb, [facility] [address] [place] [id number] [place] [address] 93935- 8804 Jan, Type 2 diabetes mellitus without complications E11.9 [facility] [address] [place] [id number] [place] [address] 74591- 8952 Dec, [facility] [address] 74237- 6902 Dec, Type 2 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, unspecified E11.40 ; residential 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 and Chronic kidney disease, unspecified CKD stage N18.9 [facility] [address] [place] [id number] [place] [address] 79599- 8943 15 Dec, 2017 Type 2 diabetes mellitus without complications E11.9 [facility] [address] [place] [id number] [place] [address] 90799- 0000 Dec, [facility] [address] [place] [id number] [place] [address] 20173- 7695 Dec, Type 2 diabetes mellitus without complications E11.9 [facility] [address] [place] [id number] [place] [address] 49947- 2985 Dec, [facility] [address] [place] [id number] [place] [address] 90893- 7275 Oct, [facility] [address] [place] [id number] [place] [address] 93998- 0975 Sep, [facility] [address] [place] [id number] [place] [address] 44078- 4547 Aug, [facility] [address] [place] [id number] [place] [address] 23807- 4159 Aug, Exposure to hepatitis C Z20.5 and Routine adult health maintenance Z00.00 [facility] [address] [address] 6277 11 Aug, 2017 Exposure to hepatitis C Z20.5 [facility] [address] [address]- 1806 11 Aug, 2017 Medicare annual wellness visit, initial Z00.00 ; Coronary artery disease involving stillaguamish coronary artery of stillaguamish heart without angina pectoris I25.10 ; Hyperlipidemia, unspecified hyperlipidemia type E78.5 ; Essential hypertension I10 ; GERD (gastroesophageal reflux disease) K21.9 ; Routine adult health maintenance Z00.00 ; Encounter for immunization Z23 ; Type 2 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, unspecified E11.40 and residential 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 [facility] [address] [address]- 0823 30 Jul, 2017 Type 2 diabetes mellitus without complications E11.9 and Type 2 diabetes mellitus without complications E11.9 [facility] [address] [address]- 1694 08 Jul, 2017 [facility] [address] [place] [id number] [place] [address] 46006- 0270 July, [facility] [address] [place] [address] 68276- 9136 Mar, Type 2 diabetes mellitus without complications E11.9 [facility] [address] [address]- 6479 Mar, [facility] [address] [address]- 0038 Feb, Type 2 diabetes mellitus without complications E11.9 [facility] [address] [address]- 6299 16 Jan, 2017 Type 2 diabetes mellitus without complications E11.9 [facility] [address] [address]- 5348 Jan, Type 2 diabetes mellitus without complications E11.9 [facility] [address] [place] [id number] [place] [address] 59628- 3632 Nov, [facility] [address] [place] [id number] [place] [address] 04446- 5740 Oct, Type 2 diabetes mellitus without complications E11.9 [facility] [address] [place] [id number] [place] [address] 40674- 0170 Oct, Type 2 diabetes mellitus without complications E11.9 ; Essential hypertension I10 and Neck pain M54.2 [facility] [address] [place] [id number] [place] [address] 54378- 0175 Sep, [facility] [address] [place] [id number] [place] [address] 03661- 4496 Aug, Type 2 diabetes mellitus without complications E11.9 [facility] [address] [place] [id number] [place] [address] 88650- 2877 Jun, Type 2 diabetes mellitus without complications E11.9 ; Neck pain M54.2 and Essential hypertension I10 [facility] [address] [place] [id number] [place] [address] 84349- 9321 17 Jun, 2016 [facility] [address] [place] [id number] [place] [address] 95289- 2853 14 Jun, 2016 [facility] [address] [place] [id number] [place] [address] 19960- 1921 10 Jun, 2016 GERD (gastroesophageal reflux disease) K21.9 and Type 2 diabetes mellitus without complications E11.9 [facility] [address] [place] [address] 53226- 5839 Mar, Paresthesias in right hand R20.2 [facility] [address] [place] [id number] [place] [address] 63464- 7350 Feb, Type 2 diabetes mellitus without complications E11.9 [facility] [address] [place] [address] [id number] Feb, Encounter for dental examination Z01.20 [facility] [address] [place] [id number] [place] [address] 00506- 6403 Feb, Type 2 diabetes mellitus without complications E11.9 and Neck pain M54.2 [facility] [id number] [place] [address] 459387- 0625 Feb, Type 2 diabetes mellitus without complications E11.9 [facility] [id number] [place] [address] [id number] Jan, Dental examination Z01.20 [facility] [address] [id number] [place] [address] 28877- 7431 Jan, [facility] [id number] [place] [address] 56695- 0696 Jan, [facility] [address] [id number] [place] [address] [id number] Dec, Dental caries K02.9 [facility] [id number] [place] [address] 04457- 8667 Nov, [facility] [address] [id number] [place] [address] 63923- 2330 Nov, [facility] [address] [id number] [place] [address] 49252- 7721 Oct, Type 2 diabetes mellitus without complications E11.9 ; Neck pain M54.2 and Essential hypertension I10 [facility] [address] [id number] [address]- 4535 Oct, [facility] [address] [place] [id number] [place] [address] [id number] Oct, Dental examination Z01.20 [facility] [address] [id number], [place] [address]- 0575 Sep, [facility] [address] [place] [id number] [place] [address] 47258- 5985 Sep, [facility] [address] [place] [id number] [place] [address] 29891- 0166 Aug, Essential (primary) hypertension I10 [facility] [address] [address]- 6097 Aug, [facility] [address] [place] [id number] [place] [address] 76779- 3873 Aug, [facility] [address] [place] [id number] [place] [address] 42078- 8827 July, Essential (primary) hypertension I10 [facility] [address] [place] [id number] [place] [address] 60170- 2008 July, Essential (primary) hypertension I10 and Type 2 diabetes mellitus without complications E11.9 [facility] [address] [place] [id number] [place] [address] 39071- 8515 July, [facility] [address] [place] [id number] [place] [address] 27378- 0048 Jun, GERD (gastroesophageal reflux disease) K21.9 [facility] [address] [place] [id number] [place] [address] 57273- 1408 Jun, GERD (gastroesophageal reflux disease) K21.9 [facility] [address] [place] [id number] [place] [address] 70911- 9908 Jun, [facility] [address] [place] [id number] [place] [address] 54537- 8748 Jun, Neuropathy G62.9 [facility] [address] [place] [id number] [place] [address] 11032- 0108 May, Essential (primary) hypertension I10 [facility] [address] [address] May, Bronchitis J40 [facility] [address] [place] [id number] [place] [address] 56029- 1929 May, Type 2 diabetes mellitus without complications E11.9 and Essential (primary) hypertension I10 [facility] [address] [address]- 6024 May, [facility] [address] [place] [id number] [place] [address] 64831- 3933 May, GERD (gastroesophageal reflux disease) K21.9 [facility] [address] [place] [address] [id number] [place] [address] 54800- 2349 Apr, Other and unspecified hyperlipidemia 272.4 ; Unspecified essential hypertension 401.9 ; Type 2 diabetes mellitus without complications E11.9 ; Neck pain M54.2 and Paresthesias in right hand R20.2 [facility] [address] 99735- 0390 Apr, [facility] [address] 20003- 0583 Apr, Neuropathy G62.9 [facility] [address] 03916- 1249 Mar, [facility] [address] 00855- 1501 Feb, [facility] [address] [place] [id number] [place] [address] 67164- 4685 Jan, [facility] [address] 87695- 9601 Dec, [facility] [address] [place] [id number] [place] [address] 41266- 1885 Dec, Type 2 diabetes mellitus without complications E11.9 ; Encounter for immunization Z23 and Neck pain M54.2 [facility] [address] [place] [id number] [place] [address] 51734- 9255 Dec, [facility] [address] [place] [id number] [place] [address] 17157- 8584 Nov, [facility] [address] 26474- 3031 09 Nov, 2014 [facility] [address] [place] [id number] [place] [address] 97562- 2154 Oct, [facility] [address] [place] [address]- 0536 Oct, [facility] [address] 2693 Sep, [facility] [address] 7865 Sep, Coronary atherosclerosis of unspecified type of vessel, stillaguamish or graft 414.00 ; Diabetes mellitus without mention of complication, type II or unspecified type, not stated as uncontrolled 250.00 ; Hyperlipidemia 272.4 and HTN (hypertension) 401.9 [facility] [address] [address]- 7913 Aug, [facility] [address] [place] [id number] [place] [address] 52645- 9214 July, [facility] [address] [place] [id number] [place] [address] 35969- 8364 Jun, [facility] [address] [address] [id number] [address]- 6834 Jun, [facility] [address], [place] [address]- 6621 May, [facility] [address] [address]- 5265 May, [facility] [address], [place] [address]- 5508 May, [facility] [address] 6720 May, [facility] [address] 5585 Apr, [facility] [address] 2086 Apr, [facility] [address], [place] [address]- 4156 Apr, [facility] [address] [place] [id number] [place] [address]- 5035 Apr, 2014 [facility] [address] [id number] [place] [address]- 5696 Apr, 2014 [facility] [place] [facility] [address] [id number] [place] [address]- 2396 Apr, 2014 [facility] [address] [id number] [place] [address]- 8231 Apr, 2014 [facility] [place] [facility] [address] [id number] [place] [address]- 5166 Apr, [facility] [address] [id number] [place] [address]- 9435 Mar, [facility] [address] [id number] [place] [address]- 5699 Mar, [facility] [address] [id number] [place] [address]- 1193 Mar, [facility] [address] [id number] [place] [address]- 4374 Mar, [facility] [place] [facility] [address] [facility] [id number] [place] [address]- 5190 Mar, [facility] [address] [facility] [id number] [place] [address]- 2007 Mar, [facility] [place] [facility] [address] [id number] [place] [address]- 7047 Mar, [facility] [place] [facility] [address] [id number] [place] [address]- 5402 Mar, [facility] [place] [facility] [address] [id number] [place] [address]- 3249 Feb, [facility] [place] [facility] [address] [id number] [place] [address]- 8796 Feb, [facility] [place] [facility] [address] [id number] [place] 1546 Feb, [facility] [place] [facility] [address] [id number] [place] [address]- 0941 Feb, [facility] [place] [facility] [address] [id number] [place] [address]- 5278 Feb, [facility] [place] [facility] [address] [id number] [place] [address]- 9223 Feb, [facility] [place] [facility] [address] [id number] [place] [address]- 0189 Feb, [facility] [place] [facility] [address] [id number] [place] [address]- 3463 Feb, [facility] [place] [facility] [address] [id number] [place] [address]- 2351 Feb, [facility] [place] [facility] [address] [id number] [place] [address]- 5958 Feb, [facility] [place] [facility] [address] [id number] [place] [address]- 8030 Jan, [facility] [place] [facility] [address] [id number] [place] [address]- 5992 Jan, [facility] [place] [facility] [address] [id number] [place] [address]- 9902 Dec, [facility] [place] [facility] [address] [id number] [place] [address]- 0048 Dec, [facility] [place] [facility] [address] [id number], [place] [address]- 3850 Dec, [facility] [place] [facility] [address] [id number] [place] 8121 Dec, [facility] [place] [facility] [address] [id number] [place] 7733 15 Nov, 2013 [facility] [place] [facility] [address] [id number]- 4241 15 Nov, 2013 [facility] [place] [facility] [address] [id number], [place] [address]- 6049 Nov, [facility] [place] [facility] [address] [id number] [place] [address]- 7152 Nov, [facility] [place] [facility] [address] [id number] [place] [address]- 2951 Oct, [facility] [place] [facility] [address] [id number] [place] [address]- 9230 Oct, [facility] [place] [facility] [address] [id number] [place] [address]- 7542 Oct, [facility] [place] [facility] [address] [id number] [place] [address]- 2524 Oct, [facility] [place] [facility] [address] [id number] [place] [address]- 4184 Oct, [facility] [place] [facility] [address] [id number] [place] [address]- 5898 Sep, [facility] [place] [facility] [address] [id number] [place] [address]- 1049 Sep, [facility] [place] [facility] [address] [id number] [place] [address]- 1123 Sep, [facility] [place] [facility] [address] [id number] [place] [address]- 2138 Sep, [facility] [place] [facility] [address] [id number] [place] [address]- 5373 Sep, [facility] [place] [facility] [address] [id number], [place] [address]- 6222 Sep, [facility] [place] [facility] [address] [id number] [place] [address]- 8438 Aug, [facility] [place] [facility] [address] [id number] [place] [address]- 1038 Aug, [facility] [place] [facility] [address] [id number] [place] [address]- 6510 Aug, [facility] [place] [facility] [address] [id number] [place] [address]- 7595 Aug, [facility] [place] [facility] [address] [id number] [place] [address]- 0435 Aug, [facility] [place] [facility] [address] [id number] [place] [address]- 1602 Aug, [facility] [place] [facility] [address] [id number] [place] [address]- 1303 July, [facility] [place] [facility] [address] [id number] [place] [address]- 8183 July, [facility] [place] [facility] [address] [id number] [place] [address]- 4660 Jun, [facility] [place] [facility] [address] [id number] [place] [address]- 7236 Jun, [facility] [place] [facility] [address] [id number] [place] [address]- 2370 May, [facility] [place] [facility] [address] [id number] [place] [address]- 2626 May, [facility] [place] [facility] [address] [id number] [place] [address]- 7830 May, [facility] [place] [facility] [address] [id number] [place] [address]- 2496 May, [facility] [place] [facility] [address] [id number] [place] [address]- 8158 Apr, [facility] [place] [facility] [address] [id number] [place] [address]- 2640 Apr, [facility] [place] [facility] [address] [id number] [place] [address]- 8843 Apr, [facility] [place] [facility] [address] [id number] [place] [address]- 0889 Apr, [facility] [place] [facility] [address] [id number], [place] [address]- 2546 Apr, [facility] [place] [facility] [address] [id number], [place] [address]- 3562 Apr, [facility] [place] [facility] [address] [id number], [place] [address]- 0966 Feb, [facility] [place] [facility] [address] [id number] [place] 3062 Feb, [facility] [place] [facility] [address] [id number], [place] [address]- 8318 Feb, [facility] [place] [facility] [address] [id number] [place] 3187 Feb, [facility] [place] [facility] [address] [id number], [place] [address]- 4189 Jan, [facility] [place] [facility] [address] [id number], [place] [address]- 3026 Jan, [facility] [place] [facility] [address] [id number], [place] [address]- 5198 Dec, [facility] [place] [facility] [address] [id number], [place] [address]- 0997 Dec, [facility] [place] [facility] [address] [id number], [place] [address]- 9880 Dec, [facility] [place] [facility] [address] [id number], [place] [address]- 4947 Dec, [facility] [place] [facility] [address] [id number], [place] [address]- 4381 Oct, [facility] [place] [facility] [address] [id number][place] [address] Oct, [facility] [place] [facility] [address] [id number][place] [id number] Oct, [facility] [place] [facility] [address] [id number], [place] [address] Oct, [facility] [place] [facility] [address] [id number] [place] [address] Sep, [facility] [address] [id number] [place] [address] Sep, [facility] [address] [id number] [place] [address] Aug, [facility] [address] [id number] [place] [address] Aug, [facility] [address] [id number] [place] [address] Aug, [facility] [address] [id number] [place] [address] Aug, [facility] [address] [id number] [place] [address] July, [facility] [address] [id number] [place] [address] Jun, [facility] [address] [id number] [place] [address] May, [facility] [address] [id number] [place] [address] May, [facility] [address] [facility] [id number] [place] [address] May, [facility] [place] [facility] [address] [id number] [place] [address] May, [facility] [address] [id number] [place] [address] May, [facility] [place] [facility] [address] [id number] [place] [address] Apr, [facility] [place] [facility] [address] [id number] [place] [address] Apr, [facility] [address] [id number] [place] [address] Apr, [facility] [address] [id number] [place] [address] Apr, [facility] [place] [facility] [address] [id number] [place] [address] Mar, [facility] [place] [facility] [address] [id number] [place] [address] Mar, [facility] [place] [facility] [address] [id number] [place] [address] Mar, [facility] [place] [facility] [address] [id number] [place] [address] Mar, [facility] [place] [facility] [address] [id number] [place] [address] Jan, [facility] [place] [facility] [address] [id number] [place] [address] Jan, [facility] [place] [facility] [address] [id number], [place] [address] Jan, [facility] [place] [facility] [address] [id number] [place] [address] Jan, [facility] [place] [facility] [address] [id number], [place] [address] Jan, [facility] [place] [facility] [address] [id number], [place] [address] Jan, [facility] [place] [facility] [address] [id number], [place] [address] Jan, [facility] [place] [facility] [address] [id number] [place] [address] Jan, [facility] [place] [facility] [address] [id number], [place] [address] Jan, [facility] [place] [facility] [address] [id number] [place] [address] Jan, [facility] [place] [facility] [address] [id number], [place] [address] Dec, [facility] [id number], [place] [address] Dec, [facility] [address] [id number], [place] [address] Dec, [facility] [id number], [place] [address] Nov, [facility] [address] [id number] [address] Nov, [facility] [id number] [place] [id number] Nov, [facility] [id number], [place] [address] Nov, [facility] [id number] [address] Oct, [facility] [id number], [place] [address] Oct, IMMUNIZATIONS No Known Immunizations SOCIAL HISTORY Never Assessed REASON FOR VISIT EMR-[facility] PLAN OF CARE VITAL SIGNS MEDICATIONS Unknown [...]
--- OUTSIDE RECORDS SUMMARY | 2018-07-21 20:56 | XMS REPORT ---
Author Author Migration, Doctor Organization [facility] Address Unknown Phone Unavailable Care Team Providers Care Front Window Cashier Name Role Phone Migration, Doctor Unavailable Unavailable PROBLEMS Type Condition ICD9-CM Code AON49-DK Code Onset Dates Condition Status SNOMED Code Problem Type 2 diabetes mellitus without complications E11.9 Active 948504612 Problem Paresthesias in right hand R20.2 Active 579925352 Problem Neck pain M54.2 Active 72541111 Problem Chronic kidney disease, unspecified CKD stage N18.9 Active 191453572 Problem Coronary artery disease involving [place] coronary artery of [place] heart without angina pectoris I25.10 Active 7036700360217 Problem Type 2 diabetes mellitus with unspecified complications E11.8 Active 07463271 Problem Hyperlipidemia, unspecified hyperlipidemia type E78.5 Active 42019760 Problem Essential hypertension I10 Active 61701615 Problem GERD (gastroesophageal reflux disease) K21.9 Active 071134228 Problem supervisor intermediates 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 Active 289286049 Problem Type 2 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, unspecified E11.40 Active 24875631 ALLERGIES No Information ENCOUNTERS Encounter Location Date Diagnosis [facility] [facility] [id number] [place] [address] 38039- 7917 May, [facility] [id number] [place] [address] 92741- 6258 May, Type 2 diabetes mellitus with unspecified complications E11.8 ; FPC 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 ; Leg cramps R25.2 ; Essential hypertension I10 and Routine adult health maintenance Z00.00 [facility] [id number] [place] [address] 10918- 4874 Apr, [facility] [id number] [place] [address] 63221- 2309 Apr, [facility] [id number] [place] [address] 61098- 1880 Mar, Type 2 diabetes mellitus without complications E11.9 [facility] [address], [place] [address] 9293 Mar, Type 2 diabetes mellitus without complications E11.9 [facility] [id number] [address] 1457 Mar, Type 2 diabetes mellitus without complications E11.9 [facility] [id number] [place] [address] 54038- 5881 Feb, Essential (primary) hypertension I10 [facility] [id number] [place] [address] 14696- 0374 Feb, [facility] [id number] [place] [address] 63472- 3800 Jan, Type 2 diabetes mellitus without complications E11.9 [facility] [id number] [place] [address] 30162- 7879 Dec, [facility] [id number] [place] [address] 82676- 2641 Dec, Type 2 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, unspecified E11.40 ; FPC 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 and Chronic kidney disease, unspecified CKD stage N18.9 [facility] [address], [place] [address]- 1172 Dec, Type 2 diabetes mellitus without complications E11.9 [facility] [address], [place] [address]- 8150 Dec, [facility] [address], [place] [address]- 2874 Dec, Type 2 diabetes mellitus without complications E11.9 [facility] [address], [place] [address]- 8582 Dec, [facility] [address], [place] [address]- 1585 Oct, [facility] [address], [place] [address]- 7429 Sep, [facility] [address], [place] [address]- 3818 Aug, [facility] [address], [place] [address]- 8011 Aug, Exposure to hepatitis C Z20.5 and Routine adult health maintenance Z00.00 [facility] [id number] [place] [address] 05487- 9156 11 Aug, 2017 Exposure to hepatitis C Z20.5 [facility] [address] [place] [address] 87498- 4284 11 Aug, 2017 Medicare annual wellness visit, initial Z00.00 ; Coronary artery disease involving [place] coronary artery of [place] heart without angina pectoris I25.10 ; Hyperlipidemia, unspecified hyperlipidemia type E78.5 ; Essential hypertension I10 ; GERD (gastroesophageal reflux disease) K21.9 ; Routine adult health maintenance Z00.00 ; Encounter for immunization Z23 ; Type 2 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, unspecified E11.40 and FPC 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 [facility] [address], [place] [address] 0030 30 Jul, 2017 Type 2 diabetes mellitus without complications E11.9 and Type 2 diabetes mellitus without complications E11.9 [facility] [address], [place] [address]- 3605 July, [facility] [address], [place] [address]- 8858 July, [facility] [address], [place] [address]- 2307 Mar, Type 2 diabetes mellitus without complications E11.9 [facility] [address], [place] [address]- 7185 Mar, [facility] [address], [place] [address]- 3956 Feb, Type 2 diabetes mellitus without complications E11.9 [facility] [address], [place] [address]- 7203 Jan, Type 2 diabetes mellitus without complications E11.9 [facility] [address], [place] [address]- 1405 Jan, Type 2 diabetes mellitus without complications E11.9 [facility] [address], [place] [address]- 9423 Nov, [facility] [address], [place] [address]- 5651 Oct, Type 2 diabetes mellitus without complications E11.9 [facility] [address] [place] [address] 34193- 7531 Oct, Type 2 diabetes mellitus without complications E11.9 ; Essential hypertension I10 and Neck pain M54.2 [facility] [address], [place] [address]- 5727 Sep, [facility] [address], [place] [address]- 7033 Aug, Type 2 diabetes mellitus without complications E11.9 [facility] [address], [place] [address]- 8182 Jun, Type 2 diabetes mellitus without complications E11.9 ; Neck pain M54.2 and Essential hypertension I10 [facility] [address], [place] [address]- 7278 Jun, [facility] [address], [place] [address]- 9144 Jun, [facility] [address] [address]- 8876 Jun, GERD (gastroesophageal reflux disease) K21.9 and Type 2 diabetes mellitus without complications E11.9 [facility] [address], [place] [address]- 3445 Mar, Paresthesias in right hand R20.2 [facility] [address] [facility] [id number] [address]- 5839 Feb, Type 2 diabetes mellitus without complications E11.9 [facility] [id number] [place] [address] [id number] Feb, Encounter for dental examination Z01.20 [facility] [id number] [place] [address] 59179- 6476 Feb, Type 2 diabetes mellitus without complications E11.9 and Neck pain M54.2 [facility] [id number] [place] [address] 56082- 2864 Feb, Type 2 diabetes mellitus without complications E11.9 [facility] [id number] [place] [address] [id number] Jan, Dental examination Z01.20 [facility] [id number] [place] [address] 82908- 1786 Jan, [facility] [id number] [place] [address] 70035- 5712 Jan, [facility] [id number] [place] [address] [id number] Dec, Dental caries K02.9 [facility] [id number] [place] [address] 00733- 1158 Nov, [facility] [id number] [place] [address] 10660- 6963 Nov, [facility] [id number] [place] [address] 45411- 6123 Oct, Type 2 diabetes mellitus without complications E11.9 ; Neck pain M54.2 and Essential hypertension I10 [facility] [id number] [place] [address] 46750- 4837 Oct, [facility] [id number] [place] [address] [id number] Oct, Dental examination Z01.20 [facility] [id number] [place] [address] 88269- 8912 Sep, [facility] [address] [place] [address] 03881- 2059 Sep, [facility] [id number] [place] [address] 56523- 2134 Aug, Essential (primary) hypertension I10 [facility] [id number] [place] [address] 35980- 8584 Aug, [facility] [id number] [place] [address] 47257- 8912 Aug, [facility] [id number] [place] [address] 64081- 8494 July, Essential (primary) hypertension I10 [facility] [id number] [place] [address] 36142- 3336 July, Essential (primary) hypertension I10 and Type 2 diabetes mellitus without complications E11.9 [facility] [id number] [place] [address] 46419- 1398 July, [facility] [id number] [place] [address] 93961- 6309 Jun, GERD (gastroesophageal reflux disease) K21.9 [facility] [id number] [place] [address] 98879- 8448 Jun, GERD (gastroesophageal reflux disease) K21.9 [facility] [id number] [place] [address] 09033- 7990 Jun, [facility] [address] [place] [address] 46995- 9656 Jun, Neuropathy G62.9 [facility] [id number] [place] [address] 81376- 9956 May, Essential (primary) hypertension I10 [facility] [address], [place] [address] -5333 May, Bronchitis J40 [facility] [address] [place] [address] 35943- 6066 15 May, 2015 Type 2 diabetes mellitus without complications E11.9 and Essential (primary) hypertension I10 [facility] [id number] [place] [address] 75609- 7692 10 May, 2015 [facility] [id number] [place] [address] 99091- 4153 10 May, 2015 GERD (gastroesophageal reflux disease) K21.9 [facility] [id number] [place] [address] 76882- 6874 25 Apr, 2015 Other and unspecified hyperlipidemia 272.4 ; Unspecified essential hypertension 401.9 ; Type 2 diabetes mellitus without complications E11.9 ; Neck pain M54.2 and Paresthesias in right hand R20.2 [facility] [id number] [place] [address] 88898- 8761 11 Apr, 2015 [facility] [id number] [place] [address] 18103- 2753 Apr, Neuropathy G62.9 [facility] [id number] [place] [address] 61239- 6983 Mar, [facility] [id number] [place] [address] 96038- 3074 Feb, [facility] [id number] [place] [address] 57079- 7076 Jan, [facility] [id number] [place] [address] 72280- 1562 Dec, [facility] [id number] [place] [address] 38013- 9935 Dec, Type 2 diabetes mellitus without complications E11.9 ; Encounter for immunization Z23 and Neck pain M54.2 [facility] [id number] [place] [address] 46220- 9450 09 Dec, 2014 [facility] [id number] [place] [address] 05243- 3041 Nov, [facility] [address], [place] [address]- 1294 Nov, [facility] [address], [place] [address]- 4836 Oct, [facility] [address] [place] [address] 78712- 8096 Oct, [facility] [id number] [place] [address] 75280- 5794 Sep, [facility] [address] [place] [address] 33509- 6973 Sep, Coronary atherosclerosis of unspecified type of vessel, [place] or graft 414.00 ; Diabetes mellitus without mention of complication, type II or unspecified type, not stated as uncontrolled 250.00 ; Hyperlipidemia 272.4 and HTN (hypertension) 401.9 [facility] [address], [place] [address]- 4928 Aug, [facility] [address], [place] [address]- 7842 July, [facility] [address], [place] [address]- 3488 Jun, [facility] [address] 9802 Jun, [facility] [address], [place] [address]- 3185 May, [facility] [address], [place] [address]- 5618 May, [facility] [address], [place] [address]- 1472 May, [facility] [address], [place] [address]- 0140 May, [facility] [address], [place] [address]- 4062 Apr, 2014 [facility] [place] [facility] [address] [id number] [place] [address]- 0336 Apr, 2014 [facility] [place] [facility] [address] [id number] [place] 3956 Apr, 2014 [facility] [place] [facility] [address] [id number] [place] [address]- 5546 Apr, 2014 [facility] [place] [facility] [address] [id number] [place] [address]- 8553 Apr, 2014 [facility] [place] [facility] [address] [id number] [place] [address]- 5205 Apr, 2014 [facility] [place] [facility] [address] [id number] [place] [address]- 8098 Apr, [facility] [place] [facility] [address] [id number] [place] [address]- 6920 Apr, [facility] [place] [facility] [address] [id number] [place] [address]- 4390 Mar, [facility] [place] [facility] [address] [id number] [place] [address]- 2051 Mar, [facility] [place] [facility] [address] [facility] [id number], [place] [address]- 1194 Mar, [facility] [place] [facility] [address] [id number] [place] [address]- 2292 Mar, [facility] [place] [facility] [address] [id number], [place] [address]- 4606 Mar, [facility] [place] [facility] [address] [id number] [place] [address]- 5020 Mar, [facility] [place] [facility] [address] [facility] [id number] [place] [address]- 0132 Mar, [facility] [place] [facility] [address] [id number], [place] [address]- 1203 Mar, [facility] [place] [facility] [address] [id number] [place] [address]- 8192 Feb, [facility] [place] [facility] [address] [id number] [place] [address]- 1155 Feb, [facility] [place] [facility] [address] [id number] [place] [address]- 7919 Feb, [facility] [place] [facility] [address] [id number] [place] [address]- 3045 Feb, [facility] [place] [facility] [address] [id number] [place] [address]- 2486 Feb, [facility] [place] [facility] [address] [id number] [place] [address]- 1079 Feb, [facility] [place] [facility] [address] [id number] [place] [address]- 5595 Feb, [facility] [place] [facility] [address] [id number] [place] [address]- 9675 Feb, [facility] [place] [facility] [address] [id number] [place] [address]- 1451 Feb, [facility] [place] [facility] [address] [id number] [place] [address]- 8330 Feb, [facility] [place] [facility] [address] [id number] [place] [address]- 1571 Jan, [facility] [place] [facility] [address] [id number] [place] [address]- 5690 Jan, [facility] [place] [facility] [address] [id number] [place] [address]- 6767 Dec, [facility] [place] [facility] [address] [id number] [place] [address]- 9758 Dec, [facility] [place] [facility] [address] [id number] [place] [address]- 6027 Dec, [facility] [place] [facility] [address] [id number] [place] [address]- 7732 Dec, [facility] [place] [facility] [address] [id number] [place] [address]- 1440 Nov, [facility] [place] [facility] [address] [id number] [place] [address]- 6490 Nov, [facility] [place] [facility] [address] [id number] [place] [address]- 6629 Nov, [facility] [place] [facility] [address] [id number] [place] [address]- 2576 Nov, [facility] [place] [facility] [address] [id number] [place] [address]- 1735 Oct, [facility] [place] [facility] [address] [id number] [place] [address]- 5816 Oct, [facility] [place] [facility] [address] [id number] [place] [address]- 8585 Oct, [facility] [place] [facility] [address] [id number] [place] [address]- 0221 Oct, [facility] [place] [facility] [address] [id number] [place] [address]- 4236 Oct, [facility] [place] [facility] [address] [id number] [place] [address]- 6035 Sep, [facility] [place] [facility] [address] [id number], [place] [address]- 6729 Sep, [facility] [place] [facility] [address] [id number], [place] [address]- 1424 Sep, [facility] [place] [facility] [address] [id number] [place] [address]- 4928 Sep, [facility] [place] [facility] [address] [id number] [place] [address]- 1738 Sep, [facility] [place] [facility] [address] [id number] [place] [address]- 5340 Sep, [facility] [place] [facility] [address] [id number] [place] [address]- 3409 Aug, [facility] [place] [facility] [address] [id number] [place] [address]- 0169 Aug, [facility] [place] [facility] [address] [id number] [place] [address]- 8150 Aug, [facility] [place] [facility] [address] [id number] [place] [address]- 9759 Aug, [facility] [place] [facility] [address] [id number] [place] [address]- 9611 Aug, [facility] [place] [facility] [address] [id number] [place] [address]- 1656 Aug, [facility] [place] [facility] [address] [id number] [place] [address]- 3998 July, [facility] [place] [facility] [address] [id number] [place] [address]- 1896 July, [facility] [place] [facility] [address] [id number] [place] [address]- 4327 Jun, [facility] [place] [facility] [address] [id number] [place] [address]- 5418 Jun, [facility] [place] [facility] [address] [id number] [place] [address]- 5262 May, [facility] [place] [facility] [address] [id number] [place] [address]- 9873 May, [facility] [place] [facility] [address] [id number] [place] [address]- 3476 May, [facility] [place] [facility] [address] [id number] [place] [address]- 9004 May, [facility] [place] [facility] [address] [id number] [place] [address]- 3636 Apr, [facility] [place] [facility] [address] [id number] [place] [address]- 4942 Apr, 2013 [facility] [place] [facility] [address] [id number] [place] [address]- 6043 Apr, 2013 [facility] [place] [facility] [address] [id number] [place] [address]- 8423 Apr, 2013 [facility] [place] [facility] [address] [id number] [place] [address]- 1137 Apr, 2013 [facility] [place] [facility] [address] [id number] [place] [address]- 6180 Apr, 2013 [facility] [place] [facility] [address] [id number] [place] [address]- 0465 Feb, [facility] [place] [facility] [address] [id number] [place] [address]- 8528 Feb, [facility] [place] [facility] [address] [id number] [place] [address]- 7620 Feb, [facility] [place] [facility] [address] [id number] [place] [address]- 0644 Feb, [facility] [place] [facility] [address] [id number] [place] [address]- 6164 Jan, [facility] [place] [facility] [address] [id number] [place] [address]- 2208 Jan, [facility] [place] [facility] [address] [id number] [place] [address]- 0806 Dec, [facility] [place] [facility] [address] [id number] [place] [address]- 3932 Dec, [facility] [place] [facility] [address] [id number] [place] [address]- 8422 Dec, [facility] [place] [facility] [address] [facility] [id number] [place] [address]- 9605 Dec, [facility] [place] [facility] [address] [id number] [place] [address]- 0965 Oct, [facility] [place] [facility] [address] [id number] [place] [address] Oct, [facility] [address] [id number] [place] [id number] Oct, [facility] [address] [id number] [place] [address] Oct, [facility] [address] [id number] [place] [address] Sep, [facility] [address] [id number] [place] [address] Sep, [facility] [address] [id number] [place] [address] Aug, [facility] [address] [id number] [place] [address] Aug, [facility] [address] [id number] [place] [address] Aug, [facility] [address] [id number] [place] [address] Aug, [facility] [address] [id number] [place] [address] July, [facility] [address] [facility] [id number] [place] [address] Jun, [facility] [address] [id number] [place] [address] May, [facility] [place] [facility] [address] [id number] [place] [address] May, [facility] [place] [facility] [address] [id number] [place] [address] May, [facility] [place] [facility] [address] [id number] [place] [address] May, [facility] [place] [facility] [address] [id number], [place] [address] May, [facility] [place] [facility] [address] [id number] [place] [address] Apr, [facility] [place] [facility] [address] [id number] [place] [address] Apr, [facility] [place] [facility] [address] [id number] [place] [address] Apr, [facility] [place] [facility] [address] [id number] [place] [address] Apr, [facility] [place] [facility] [address] [id number] [place] [address] Mar, [facility] [place] [facility] [address] [id number] [place] [address] Mar, [facility] [place] [facility] [address] [id number] [place] [address] Mar, [facility] [place] [facility] [address] [id number] [place] [address] Mar, [facility] [place] [facility] [address] [id number] [place] [address] Jan, [facility] [place] [facility] [address] [id number] [place] [address] 16 Jan, 2012 [facility] [place] [facility] [address] [id number] [place] [address] 15 Jan, 2012 [facility] [place] [facility] [address] [id number], [place] [address] 15 Jan, 2012 [facility] [place] [facility] [address] [id number] [place] [address] Jan, [facility] [place] [facility] [address] [id number] [place] [address] 07 Jan, 2012 [facility] [place] [facility] [address] [id number] [place] [address] 05 Jan, 2012 [facility] [place] [facility] [address] [id number], [place] [address] Jan, [facility] [id number] [address] Jan, [facility] [id number] [place] [address] Jan, [facility] [address] [id number], [place] [address] Dec, [facility] [id number] [place] [address] Dec, [facility] [address] [id number] [place] [phone] Dec, [facility] [id number] [place] [phone] Nov, [facility] [id number] [place] [phone] Nov, [facility] [id number] [phone] Nov, [facility] [id number] [place] [phone] Nov, [facility] [id number], [place] [address] Oct, [facility] [id number] [address] Oct, IMMUNIZATIONS No Known Immunizations SOCIAL HISTORY Never Assessed REASON FOR VISIT [facility] [place] PLAN OF CARE VITAL SIGNS MEDICATIONS Medication Instructions Dosage Frequency Start Date End Date Duration Status MS Contin 30 mg 1 tablet by Oral route every 12 hours May, Active Metoprolol Tartrate 50 mg take 2 tablets (100 mg) by oral route 2 times per day with meals Mar, Active Furosemide 40 mg take 1 tablet (40 mg) by oral route once daily May Active Diazepam 5 mg 1 Tablet by Oral route 2 times per day Feb, Active NovoLog Flexpen 100 unit/mL inject 86 Unit by Subcutaneous route as per insulin sliding scale protocol 3 times per day tid AC Apr, Active Hydrocodone-Acetaminophen 10-325 mg 1 Tablet by Oral route every 4 hours May, Active metformin 500 mg 1 tablet by Oral route 2 times per day Apr, Active Neurontin 600 mg 1 Tablet 3 times per day May, Active Levemir Flexpen 100 unit/mL (3 mL) inject 82 Unit by Subcutaneous route as per insulin sliding scale protocol 2 times per day 82 units AM and PM Apr, Active Imdur 60 mg take 1 tablet (60 mg) by oral route once daily in the morning Aug, Active Aspirin 81 mg take 1 tablet (81 mg) by oral route once daily Oct, Active RESULTS No Results PROCEDURES No Known [...]
[2018-07-21 21:00] VITALS: BP 110/60
--- OUTSIDE RECORDS SUMMARY | 2018-07-21 21:08 | XMS REPORT | Continuity of Care Document ---
Author Organization Unknown Address Unknown Allergies Active Description Code Type Severity Reaction Onset Reported/Identified Relationship to Patient Clinical Status Yes No Known Drug Allergies [id number] Drug Allergy Unknown N/A 11/13/2011 Yes morphine [id number] Drug Allergy Severe hallucination 07/12/2018 Medications There is no data. Problems Date [...] AMADO MD 786.50 UNSPECIFIED CHEST PAIN 11/13/2011 MAURO DOLAN, JUSTICE K 786.50 UNSPECIFIED CHEST PAIN 11/13/2011 IBAN DAVALOS DDS 786.50 UNSPECIFIED CHEST PAIN 11/13/2011 GEE AMADO MD 786.50 UNSPECIFIED CHEST PAIN 11/13/2011 JOELLE DAVALOS DDS 786.50 UNSPECIFIED CHEST PAIN 11/13/2011 WADE DO, JUSTICE K 786.50 UNSPECIFIED CHEST PAIN 11/13/2011 WADE DO, JUSTICE K 786.50 UNSPECIFIED CHEST PAIN 11/13/2011 VAN LAWRENCE APRN 786.50 UNSPECIFIED CHEST PAIN 11/13/2011 IBAN DAVALOS DDS 786.50 UNSPECIFIED CHEST PAIN 11/13/2011 GEE AMADO MD 786.50 UNSPECIFIED CHEST PAIN 11/13/2011 GEE AMADO MD 786.50 UNSPECIFIED CHEST PAIN 11/13/2011 LALITO TERRAZAS APRN 786.50 UNSPECIFIED CHEST PAIN 11/13/2011 GEE AMADO MD 786.50 UNSPECIFIED CHEST PAIN 11/13/2011 INGRIS MARAVILLA, GEE 786.50 UNSPECIFIED CHEST PAIN 11/13/2011 GEE AMADO MD 786.50 UNSPECIFIED CHEST PAIN 11/13/2011 INGRIS MARAVILLA, GEE 786.50 UNSPECIFIED CHEST PAIN 11/13/2011 GEE AMADO MD 786.50 UNSPECIFIED CHEST PAIN 11/16/2011 Ot 250.02 DIAB SHAHRAM WO COMPL, TYPE II OR UNSPEC TY 11/16/2011 Ot 272.4 HYPERLIPIDEMIA NEC/NOS 11/16/2011 Ot 275.2 DIS MAGNESIUM METABOLISM 11/16/2011 Ot 276.1 HYPOSMOLALITY 11/16/2011 Ot 401.9 HYPERTENSION NOS 11/16/2011 Ot 411.1 INTERMED CORONARY SYND 11/16/2011 Ot 414.01 CORONARY ATHEROSCLEROSIS OF [place] CORON 11/16/2011 Ot 530.81 ESOPHAGEAL REFLUX 11/16/2011 [...] MD 401.9 HYPERTENSION, UNSPECIFIED ESSENTIAL 12/16/2011 GEE AAMDO MD 414.00 CAD 12/16/2011 250.02 DIABETES II UNCONTROLLED (UNCOMPLICATED) 12/16/2011 401.9 HYPERTENSION, UNSPECIFIED ESSENTIAL 12/16/2011 414.00 CAD 12/16/2011 250.02 DIABETES II UNCONTROLLED (UNCOMPLICATED) 12/16/2011 401.9 HYPERTENSION, UNSPECIFIED ESSENTIAL 12/16/2011 414.00 CAD 12/16/2011 WHITE DDS, IBAN D 250.02 DIABETES II UNCONTROLLED (UNCOMPLICATED) 12/16/2011 WHITE DDS, IBAN D 401.9 HYPERTENSION, UNSPECIFIED ESSENTIAL 12/16/2011 WHITE DDS, IABN D 414.00 CAD 12/16/2011 WHITE DDS, IBAN Phillip 250.02 DIABETES II UNCONTROLLED (UNCOMPLICATED) 12/16/2011 WHITE DDS, IBAN D 401.9 HYPERTENSION, UNSPECIFIED ESSENTIAL 12/16/2011 WHITE DDS, IBAN D 414.00 CAD 12/16/2011 GEE AMADO MD 250.02 [...] 250.02 DIABETES II UNCONTROLLED (UNCOMPLICATED) 12/16/2011 GEE AAMDO MD 401.9 HYPERTENSION, UNSPECIFIED ESSENTIAL 12/16/2011 GEE AMADO MD 414.00 CAD 12/16/2011 WHITE DDS, JOELLE J 250.02 DIABETES II UNCONTROLLED (UNCOMPLICATED) 12/16/2011 WHITE DDS, JOELLE J 401.9 HYPERTENSION, UNSPECIFIED ESSENTIAL 12/16/2011 WHITE DDS, JOELLE J 414.00 CAD 12/16/2011 WADE DO, JUSTICE K 250.02 DIABETES II UNCONTROLLED (UNCOMPLICATED) 12/16/2011 WADE DO, JUSTICE K 401.9 HYPERTENSION, UNSPECIFIED ESSENTIAL 12/16/2011 WADE DO, JUSTICE K 414.00 CAD 12/16/2011 WADE DO, JUSTICE K 250.02 DIABETES II UNCONTROLLED (UNCOMPLICATED) 12/16/2011 WADE DO, JUSTICE K 401.9 HYPERTENSION, UNSPECIFIED ESSENTIAL 12/16/2011 WADE DO, JUSTICE K 414.00 CAD 12/16/2011 MELINDA NEWSWRITER, VAN A 250.02 DIABETES II UNCONTROLLED (UNCOMPLICATED) 12/16/2011 MELINDA NEWSWRITER, VAN A 401.9 HYPERTENSION, UNSPECIFIED ESSENTIAL 12/16/2011 MELINDA NEWSWRITER, VAN A 414.00 CAD 12/16/2011 WHITE DDS, [...] 12/16/2011 INGRIS MARAVILLA, GEE 414.00 CAD 12/16/2011 LALITO TERRAZAS APRN 250.02 DIABETES II UNCONTROLLED (UNCOMPLICATED) 12/16/2011 LALITO TERRAZAS APRN L 401.9 HYPERTENSION, UNSPECIFIED ESSENTIAL 12/16/2011 LALITO TERRAZAS APRN L 414.00 CAD 12/16/2011 GEE AMADO MD [...] YRS AND ABOVE, IM) 01/14/2012 WHITE DDS, JOELLE French V04.81 FLU DX (3 YRS AND ABOVE, IM) 01/14/2012 WADE DO, JUSTICE K V04.81 FLU DX (3 YRS AND ABOVE, IM) 01/14/2012 WADE DO, JUSTICE K V04.81 FLU DX (3 YRS AND ABOVE, IM) 01/14/2012 VAN LAWRENCE APRN V04.81 FLU DX (3 YRS AND [...] DDS, IBAN D 272.4 HYPERLIPIDEMIA 04/13/2012 GEE AAMDO MD 272.4 HYPERLIPIDEMIA 04/13/2012 GEE AMADO MD 272.4 HYPERLIPIDEMIA 04/13/2012 LALITO TERRAZAS APRN 272.4 HYPERLIPIDEMIA 04/13/2012 GEE AMADO MD 272.4 HYPERLIPIDEMIA 04/13/2012 GEE AMADO MD 272.4 HYPERLIPIDEMIA 04/13/2012 INGRIS MARAVILLA, GEE 272.4 HYPERLIPIDEMIA 04/13/2012 INGRIS MARAVILLA, GEE 272.4 HYPERLIPIDEMIA 05/10/2012 GEE AMADO MD 250.00 DIABETES MELLITUS POORLY CONTROLLED 05/10/2012 GEE AMADO MD 250.00 DIABETES MELLITUS POORLY CONTROLLED 05/10/2012 250.00 DIABETES MELLITUS POORLY CONTROLLED 05/10/2012 250.00 DIABETES MELLITUS POORLY CONTROLLED 05/10/2012 WHITE DDS, IBAN Phillip 250.00 DIABETES MELLITUS POORLY CONTROLLED 05/10/2012 WHITE DDS, IBAN D 250.00 DIABETES MELLITUS POORLY CONTROLLED 05/10/2012 GEE AMADO MD 250.00 DIABETES MELLITUS POORLY CONTROLLED 05/10/2012 MAURO DOLAN, JUSTICE K 250.00 DIABETES MELLITUS POORLY CONTROLLED 05/10/2012 WHITE LAKISHAS, IBAN D 250.00 DIABETES MELLITUS POORLY CONTROLLED [...] DAVALOS DDS 357.2 POLYNEUROPATHY IN DIABETES 10/10/2012 IBNA DAVALOS DDS 357.2 POLYNEUROPATHY IN DIABETES 10/10/2012 GEE AMADO MD 357.2 POLYNEUROPATHY IN DIABETES 10/10/2012 JUSTICE WADE DO K 357.2 POLYNEUROPATHY IN DIABETES 10/10/2012 IBAN DAVALOS DDS 357.2 POLYNEUROPATHY IN DIABETES 10/10/2012 GEE AMADO MD 357.2 POLYNEUROPATHY IN DIABETES 10/10/2012 JOELLE DAVALOS DDS 357.2 POLYNEUROPATHY IN DIABETES 10/10/2012 MAURO DOLAN JUSTICE K 357.2 POLYNEUROPATHY IN DIABETES 10/10/2012 WADE DOJUSTICE 357.2 POLYNEUROPATHY IN DIABETES 10/10/2012 VAN LAWRENCE [...] MILLER MD Ot 414.01 CORONARY ATHEROSCLEROSIS OF [place] CORON 08/28/2013 BOOM MILLER MD Ot 786.50 [...] MD Ot I25.10 ATHSCL HEART DISEASE OF [place] CORONARY 03/13/2015 BOOM MILLER MD Ot R07.89 OTHER CHEST PAIN 03/13/2015 BOOM MILLER MD Ot Z68.35 BODY MASS INDEX (BMI) 35.0-35.9, ADULT 03/13/2015 BOOM MILLER MD Ot Z79.4 FPC (CURRENT) USE OF INSULIN 03/13/2015 BOOM MILLER MD Ot Z79.899 OTHER FPC (CURRENT) DRUG THERAPY 03/13/2015 BOOM MILLER MD Ot Z98.61 CORONARY ANGIOPLASTY STATUS 03/21/2015 BOOM MILLER MD Ot E78.5 03/21/2015 BOOM MILLER MD Ot I10 03/21/2015 BOOM MILLER MD Ot I25.10 03/21/2015 BOOM MILLER MD Ot R07.89 08/08/2015 Ot E78.5 HYPERLIPIDEMIA, UNSPECIFIED 08/08/2015 Ot I07.1 RHEUMATIC TRICUSPID INSUFFICIENCY 08/08/2015 Ot I10 ESSENTIAL ( PRIMARY) HYPERTENSION 08/08/2015 Ot I25.10 ATHSCL HEART DISEASE OF [place] CORONARY 08/09/2015 Ot E78.5 HYPERLIPIDEMIA, UNSPECIFIED 08/09/2015 Ot I07.1 RHEUMATIC TRICUSPID INSUFFICIENCY 08/09/2015 Ot I10 ESSENTIAL ( PRIMARY) HYPERTENSION 08/09/2015 Ot I25.10 ATHSCL HEART DISEASE OF [place] CORONARY 08/09/2015 Ot E78.5 HYPERLIPIDEMIA, UNSPECIFIED 08/09/2015 Ot I07.1 RHEUMATIC TRICUSPID INSUFFICIENCY 08/09/2015 Ot I10 ESSENTIAL ( PRIMARY) HYPERTENSION 08/09/2015 Ot I25.10 ATHSCL HEART DISEASE OF [place] CORONARY 08/12/2015 XANDER ESQUIVEL MD Ot M54.12 [...] 09/06/2015 Ot I25.10 ATHSCL HEART DISEASE OF [place] CORONARY 09/11/2015 ILANA SANTAMARIA MD Ot M54.2 CERVICALGIA 09/11/2015 ILANA SANTAMARIA MD Ot M54.2 CERVICALGIA 09/11/2015 XNADER ESQUIVEL MD Ot M54.12 RADICULOPATHY, CERVICAL REGION 09/11/2015 XANDER ESQUIVEL MD Ot Z98.1 ARTHRODESIS STATUS 09/13/2015 ILANA SANTAMARIA MD Ot M48.02 SPINAL STENOSIS, CERVICAL REGION 09/13/2015 ILANA SANTAMARIA MD Ot M50.30 OTHER CERVICAL DISC DEGENERATION, UNSP C 10/08/2015 ILANA SANTAMARIA MD Ot M48.02 SPINAL STENOSIS, CERVICAL REGION 10/08/2015 ILANA SANTAMARIA MD Ot M50.30 OTHER CERVICAL DISC DEGENERATION, UNSP C 02/22/2017 SPIVEYVIVIANA HEBERT Ot 250.00 DIAB SHAHRAM WO COMPL, TYPE II OR UNSPEC TY 02/22/2017 VIVIANA COTTO Ot 272.4 HYPERLIPIDEMIA NEC/NOS 02/22/2017 VIVIANA COTTO Ot 401.9 HYPERTENSION NOS 02/22/2017 VIVIANA COTTO Ot 414.00 CORON ATHEROSCLER NOS TYPE VESSEL, NATIV 02/22/2017 VIVIANA COTTO Ot 786.50 CHEST PAIN NOS 02/22/2017 VAN LAWRENCE Evin BREEN Ot V76.12 OTH SCREEN MAMMO-MALIGN NEOPLASM OF [place] 02/22/2017 BOOM MILLER MD Ot E78.5 HYPERLIPIDEMIA, UNSPECIFIED 02/22/2017 BOOM MILLER MD Ot I10 ESSENTIAL (PRIMARY) HYPERTENSION 02/22/2017 BOOM MILLER MD Ot I25.10 ATHSCL HEART DISEASE OF [place] CORONARY 02/22/2017 BOOM MILLER MD Ot R07.89 OTHER CHEST PAIN 02/22/2017 Ot E78.5 HYPERLIPIDEMIA, UNSPECIFIED 02/22/2017 Ot I07.1 RHEUMATIC TRICUSPID INSUFFICIENCY 02/22/2017 Ot I10 ESSENTIAL ( PRIMARY) HYPERTENSION 02/22/2017 Ot I25.10 ATHSCL HEART DISEASE OF [place] CORONARY 02/22/2017 XANDER ESQUIVEL MD Ot M54.12 RADICULOPATHY, CERVICAL REGION 02/22/2017 XANDER ESQUIVEL MD Ot Z98.1 ARTHRODESIS STATUS 02/22/2017 ILANA SANTAMARIA MD Ot M48.02 SPINAL STENOSIS, CERVICAL REGION 02/22/2017 ILANA SANTAMARIA MD Ot M50.30 OTHER CERVICAL DISC DEGENERATION, UNSP C 03/06/2017 BOOM MILLER MD Ot I10 ESSENTIAL (PRIMARY) HYPERTENSION 03/06/2017 BOOM MILLER MD Ot I25.10 ATHSCL HEART DISEASE OF [place] CORONARY 03/06/2017 BOOM MILLER MD Ot Z79.84 FPC (CURRENT) USE OF ORAL HYPOGLYC 03/17/2017 BOOM [...] MD Ot I25.10 ATHSCL HEART DISEASE OF [place] CORONARY 03/25/2017 BOOM MILLER MD Ot I48.91 UNSPECIFIED ATRIAL FIBRILLATION 03/26/2017 BOOM MILLER MD Ot E78.5 HYPERLIPIDEMIA, UNSPECIFIED 03/26/2017 BOOM MILLER MD Ot I10 ESSENTIAL (PRIMARY) HYPERTENSION 03/26/2017 BOOM MILLER MD Ot I25.10 ATHSCL HEART DISEASE OF [place] CORONARY 03/26/2017 BOOM MILLER MD Ot I48.91 [...] MD Ot I25.10 ATHSCL HEART DISEASE OF [place] CORONARY 04/01/2017 BOOM MILLER MD Ot I48.91 UNSPECIFIED ATRIAL FIBRILLATION 04/01/2017 BOOM MILLER MD Ot R06.83 SNORING 04/01/2017 BOOM MILLER MD Ot Z68.35 BODY MASS INDEX (BMI) 35.0-35.9, ADULT 04/01/2017 BOOM MILLER MD, Ot Z79.4 MOP MACHINE OPERATOR (CURRENT) USE OF INSULIN 04/01/2017 BOOM MILLER MD Ot Z79.82 FPC (CURRENT) USE OF ASPIRIN 04/01/2017 BOOM MILLER MD, Ot Z79.899 OTHER MOP MACHINE OPERATOR (CURRENT) DRUG THERAPY 04/01/2017 BOOM MILLER MD [...] COTTO Ot 786.50 CHEST PAIN NOS 04/02/2017 MELINDA VAN A NEWSWRITER Ot V76.12 OTH SCREEN MAMMO-MALIGN NEOPLASM OF [place] 04/02/2017 BOOM MILLER MD, Ot E78.5 HYPERLIPIDEMIA, UNSPECIFIED 04/02/2017 BOOM MILLER MD Ot I10 ESSENTIAL (PRIMARY) HYPERTENSION 04/02/2017 BOOM MILLER MD, Ot I25.10 ATHSCL HEART DISEASE OF [place] CORONARY 04/02/2017 BOOM MILLER MD Ot R07.89 OTHER CHEST PAIN 04/02/2017 Ot E78.5 HYPERLIPIDEMIA, UNSPECIFIED 04/02/2017 Ot I07.1 RHEUMATIC TRICUSPID INSUFFICIENCY 04/02/2017 Ot I10 ESSENTIAL ( PRIMARY) HYPERTENSION 04/02/2017 Ot I25.10 ATHSCL HEART DISEASE OF [place] CORONARY 04/02/2017 XANDER ESQUIVEL MD Ot M54.12 RADICULOPATHY, CERVICAL REGION 04/02/2017 XANDER ESQUIVEL MD Ot Z98.1 ARTHRODESIS STATUS 04/02/2017 ILANA SANTAMARIA MD Ot M48.02 SPINAL STENOSIS, CERVICAL REGION 04/02/2017 [...] MD Ot I25.10 ATHSCL HEART DISEASE OF [place] CORONARY 04/02/2017 BOOM MILLER MD Ot I48.91 UNSPECIFIED ATRIAL FIBRILLATION 04/02/2017 BOOM MILLER MD Ot R06.83 SNORING 04/02/2017 BOOM MILLER MD Ot Z68.35 BODY MASS INDEX (BMI) 35.0-35.9, ADULT 04/02/2017 BOOM MILLER MD Ot Z79.4 FPC (CURRENT) USE OF INSULIN 04/02/2017 BOOM MILLER MD Ot Z79.82 MOP MACHINE OPERATOR (CURRENT) USE OF ASPIRIN 04/02/2017 BOOM MILLER MD Ot Z79.899 OTHER FPC (CURRENT) DRUG THERAPY 04/02/2017 BOOM MILLER MD [...] MD, Ot I25.10 ATHSCL HEART DISEASE OF [place] CORONARY 04/20/2017 BOOM MILLER MD Ot I48.91 UNSPECIFIED ATRIAL FIBRILLATION 04/20/2017 BOOM MILLER MD Ot R06.83 SNORING 04/20/2017 BOOM MILLER MD, Ot Z68.35 BODY MASS INDEX (BMI) 35.0-35.9, ADULT 04/20/2017 BOOM MILLER MD Ot Z79.4 FPC (CURRENT) USE OF INSULIN 04/20/2017 BOOM MILLER MD Ot Z79.82 FPC (CURRENT) USE OF ASPIRIN 04/20/2017 BOOM MILLER MD, Ot Z79.899 OTHER MOP MACHINE OPERATOR (CURRENT) DRUG THERAPY 04/20/2017 BOOM MILLER MD Ot Z95.5 PRESENCE OF [...] MD Ot I25.10 ATHSCL HEART DISEASE OF [place] CORONARY 09/24/2017 BOOM MILLER MD Ot R07.89 OTHER CHEST PAIN 09/24/2017 Ot E78.5 HYPERLIPIDEMIA, UNSPECIFIED 09/24/2017 Ot I07.1 RHEUMATIC TRICUSPID INSUFFICIENCY 09/24/2017 Ot I10 ESSENTIAL ( PRIMARY) HYPERTENSION 09/24/2017 Ot I25.10 ATHSCL HEART DISEASE OF [place] CORONARY 09/24/2017 ALVIN MARAVILLA, XANDER Topete Ot M54.12 RADICULOPATHY, CERVICAL REGION 09/24/2017 XANDER ESQUIVEL MD Ot Z98.1 ARTHRODESIS STATUS 09/24/2017 ROSALIO MARAVILLA, ILANA French Ot M48.02 SPINAL STENOSIS, CERVICAL REGION 09/24/2017 ROSALIO MARAVILLA, ILANA French Ot M50.30 OTHER CERVICAL DISC DEGENERATION, UNSP [...] MD Ot I25.10 ATHSCL HEART DISEASE OF [place] CORONARY 09/24/2017 BOOM MILLER MD Ot I48.91 UNSPECIFIED ATRIAL FIBRILLATION 09/24/2017 BOOM MILLER MD Ot R06.83 SNORING 09/24/2017 BOOM MILLER MD Ot Z68.35 BODY MASS INDEX (BMI) 35.0-35.9, ADULT 09/24/2017 BOOM MILLER MD Ot Z79.4 FPC (CURRENT) USE OF INSULIN 09/24/2017 BOOM MILLER MD Ot Z79.82 MOP MACHINE OPERATOR (CURRENT) USE OF ASPIRIN 09/24/2017 BOOM MILLER MD Ot Z79.899 OTHER FPC (CURRENT) DRUG THERAPY 09/24/2017 BOOM MILLER MD [...] MD Ot I25.10 ATHSCL HEART DISEASE OF [place] CORONARY 01/14/2018 BOOM MILLER MD Ot I48.91 UNSPECIFIED ATRIAL FIBRILLATION 01/14/2018 BOOM MILLER MD Ot R06.83 SNORING 01/14/2018 BOOM MILLER MD Ot Z68.35 BODY MASS INDEX (BMI) 35.0-35.9, ADULT 01/14/2018 BOOM MILLER MD Ot Z79.4 FPC (CURRENT) USE OF INSULIN 01/14/2018 BOOM MILLER MD Ot Z79.82 MOP MACHINE OPERATOR (CURRENT) USE OF ASPIRIN 01/14/2018 BOOM MILLER MD Ot Z79.899 OTHER MOP MACHINE OPERATOR (CURRENT) DRUG THERAPY 01/14/2018 BOOM MILLER MD [...] MD Ot I25.10 ATHSCL HEART DISEASE OF [place] CORONARY 01/14/2018 BOOM MILLER MD Ot I48.91 UNSPECIFIED ATRIAL FIBRILLATION 01/14/2018 BOOM MILLER MD Ot R06.83 SNORING 01/14/2018 BOOM MILLER MD Ot Z68.35 BODY MASS INDEX (BMI) 35.0-35.9, ADULT 01/14/2018 BOOM MILLER MD Ot Z79.4 MOP MACHINE OPERATOR (CURRENT) USE OF INSULIN 01/14/2018 BOOM MILLER MD, Ot Z79.82 FPC (CURRENT) USE OF ASPIRIN 01/14/2018 BOOM MILLER MD Ot Z79.899 OTHER MOP MACHINE OPERATOR (CURRENT) DRUG THERAPY 01/14/2018 BOOM MILLER MD Ot Z95.5 PRESENCE OF CORONARY ANGIOPLASTY IMPLANT 02/05/2018 BOOM MILLER MD Ot I48.0 PAROXYSMAL ATRIAL FIBRILLATION 02/05/2018 BOOM MILLER MD Ot I48.0 PAROXYSMAL ATRIAL FIBRILLATION 02/07/2018 BOOM MILLER MD, Ot I48.0 PAROXYSMAL ATRIAL FIBRILLATION 02/07/2018 BOOM MILLER MD Ot Z51.81 ENCOUNTER FOR THERAPEUTIC DRUG LEVEL MON 02/07/2018 BOOM MILLER MD Ot Z79.01 MOP MACHINE OPERATOR (CURRENT) USE OF ANTICOAGULANT 02/28/2018 BOOM MILLER MD Ot I48.0 PAROXYSMAL ATRIAL FIBRILLATION 02/28/2018 BOOM MILLER MD Ot Z51.81 ENCOUNTER FOR THERAPEUTIC DRUG LEVEL MON 02/28/2018 BOOM MILLER MD Ot Z79.01 MOP MACHINE OPERATOR (CURRENT) USE OF ANTICOAGULANT 03/02/2018 BOOM MILLER MD Ot I48.0 PAROXYSMAL ATRIAL FIBRILLATION 03/02/2018 BOOM MILLER MD Ot Z51.81 ENCOUNTER FOR THERAPEUTIC DRUG LEVEL MON 03/09/2018 VIVIANA COTTO Ot 250.00 DIAB SHAHRAM WO COMPL, TYPE II OR UNSPEC TY 03/09/2018 VIVIANA COTTO Ot 272.4 HYPERLIPIDEMIA NEC/NOS 03/09/2018 VIVIANA COTTO Ot 401.9 HYPERTENSION NOS 03/09/2018 VIVIANA COTTO Ot 414.00 CORON ATHEROSCLER NOS TYPE VESSEL, NATIV 03/09/2018 VIVIANA COTTO Ot 786.50 CHEST PAIN NOS 03/09/2018 VAN LAWRENCE APRN Ot V76.12 OTH SCREEN MAMMO-MALIGN NEOPLASM OF [place] 03/09/2018 BOOM MILLER MD Ot E78.5 HYPERLIPIDEMIA, UNSPECIFIED 03/09/2018 BOOM MILLER MD Ot I10 ESSENTIAL (PRIMARY) HYPERTENSION 03/09/2018 BOOM MILLER MD Ot I25.10 ATHSCL HEART DISEASE OF [place] CORONARY 03/09/2018 BOOM MILLER MD Ot R07.89 OTHER CHEST PAIN 03/09/2018 Ot E78.5 HYPERLIPIDEMIA, UNSPECIFIED 03/09/2018 Ot I07.1 RHEUMATIC TRICUSPID INSUFFICIENCY 03/09/2018 Ot I10 ESSENTIAL ( PRIMARY) HYPERTENSION 03/09/2018 Ot I25.10 ATHSCL HEART DISEASE OF [place] CORONARY 03/09/2018 XANDER ESQUIVEL MD Ot M54.12 RADICULOPATHY, CERVICAL REGION 03/09/2018 XANDER ESQUIVEL MD Ot Z98.1 ARTHRODESIS STATUS 03/09/2018 ILANA SANTAMARIA MD Ot M48.02 SPINAL STENOSIS, CERVICAL REGION 03/09/2018 ILANA SANTAMARIA MD Ot M50.30 OTHER CERVICAL DISC DEGENERATION, UNSP C 03/09/2018 BOOM MILLER MD Ot E78.1 PURE HYPERGLYCERIDEMIA 03/09/2018 BOOM MILLER MD Ot E78.2 MIXED HYPERLIPIDEMIA 03/09/2018 BOOM MILLER MD Ot I11.0 HYPERTENSIVE HEART DISEASE WITH HEART FA 03/09/2018 BOOM MILLER MD Ot I34.0 NONRHEUMATIC MITRAL (VALVE) INSUFFICIENC 03/09/2018 BOOM MILLER MD Ot I35.8 OTHER NONRHEUMATIC AORTIC VALVE DISORDER 03/09/2018 BOOM MILLER MD Ot I51.7 CARDIOMEGALY 03/09/2018 BOOM MILLER MD Ot R07.89 OTHER CHEST PAIN 03/09/2018 BOOM MILLER MD Ot E78.1 PURE HYPERGLYCERIDEMIA 03/09/2018 BOOM MILLER MD Ot E78.2 MIXED HYPERLIPIDEMIA 03/09/2018 BOOM MILLER MD Ot I11.9 HYPERTENSIVE HEART DISEASE WITHOUT HEART 03/09/2018 BOOM MILLER MD Ot I34.0 NONRHEUMATIC MITRAL (VALVE) INSUFFICIENC 03/09/2018 BOOM MILLER MD Ot I35.8 OTHER NONRHEUMATIC AORTIC VALVE DISORDER 03/09/2018 BOOM MILLER MD Ot R07.89 OTHER CHEST PAIN 03/09/2018 BOOM MILLER MD Ot E11.9 TYPE 2 DIABETES MELLITUS WITHOUT COMPLIC 03/09/2018 BOOM MILLER MD Ot E66.9 OBESITY, UNSPECIFIED 03/09/2018 BOOM MILLER MD Ot E78.5 HYPERLIPIDEMIA, UNSPECIFIED 03/09/2018 BOOM MILLER MD Ot G47.10 HYPERSOMNIA, UNSPECIFIED 03/09/2018 BOOM MILLER MD Ot G89.29 OTHER CHRONIC PAIN 03/09/2018 BOOM MILLER MD Ot I10 ESSENTIAL (PRIMARY) HYPERTENSION 03/09/2018 BOOM MILLER MD Ot I25.10 ATHSCL HEART DISEASE OF [place] CORONARY 03/09/2018 BOOM MILLER MD Ot I48.91 UNSPECIFIED ATRIAL FIBRILLATION 03/09/2018 BOOM MILLER MD Ot R06.83 SNORING 03/09/2018 BOOM MILLER MD Ot Z68.35 BODY MASS INDEX (BMI) 35.0-35.9, ADULT 03/09/2018 BOOM MILLER MD Ot Z79.4 MOP MACHINE OPERATOR (CURRENT) USE OF INSULIN 03/09/2018 BOOM MILLER MD Ot Z79.82 FPC (CURRENT) USE OF ASPIRIN 03/09/2018 BOOM MILLER MD Ot Z79.899 OTHER FPC (CURRENT) DRUG THERAPY 03/09/2018 BOOM MILLER MD Ot Z95.5 PRESENCE OF CORONARY ANGIOPLASTY IMPLANT 03/09/2018 BOOM MILLER MD Ot I48.91 UNSPECIFIED ATRIAL FIBRILLATION 03/09/2018 BOOM MILLER MD Ot I48.0 PAROXYSMAL ATRIAL FIBRILLATION 03/09/2018 BOOM MILLER MD Ot Z51.81 ENCOUNTER FOR THERAPEUTIC DRUG LEVEL MON 03/09/2018 BOOM MILLER MD Ot Z79.01 MOP MACHINE OPERATOR (CURRENT) USE OF ANTICOAGULANT 03/09/2018 BOOM MILLER MD Ot E11.9 TYPE 2 DIABETES MELLITUS WITHOUT COMPLIC 03/09/2018 BOOM MILLER MD Ot E66.9 OBESITY, UNSPECIFIED 03/09/2018 BOOM MILLER MD Ot E78.5 HYPERLIPIDEMIA, UNSPECIFIED 03/09/2018 BOOM MILLER MD Ot G47.33 OBSTRUCTIVE SLEEP APNEA (ADULT) (PEDIATR 03/09/2018 BOOM MILLER MD Ot G89.29 OTHER CHRONIC PAIN 03/09/2018 BOOM MILLER MD Ot I10 ESSENTIAL (PRIMARY) HYPERTENSION 03/09/2018 BOOM MILLER MD Ot I25.10 ATHSCL HEART DISEASE OF [place] CORONARY 03/09/2018 BOOM MILLER MD Ot I35.0 NONRHEUMATIC AORTIC (VALVE) STENOSIS 03/09/2018 BOOM MILLER MD Ot I48.0 PAROXYSMAL ATRIAL FIBRILLATION 03/09/2018 BOOM MILLER MD Ot R07.9 CHEST PAIN, UNSPECIFIED 03/09/2018 BOOM MILLER MD Ot Z68.37 BODY MASS INDEX (BMI) 37.0-37.9, ADULT 03/09/2018 BOOM MILLER MD Ot Z79.4 FPC (CURRENT) USE OF INSULIN 03/09/2018 BOOM MILLER MD Ot Z79.899 OTHER FPC (CURRENT) DRUG THERAPY 03/09/2018 BOOM MILLER MD Ot Z87.891 PERSONAL HISTORY OF NICOTINE DEPENDENCE 03/09/2018 BOOM MILLER MD Ot Z95.5 PRESENCE OF CORONARY ANGIOPLASTY IMPLANT 03/11/2018 BOOM MILLER MD Ot E11.9 TYPE 2 DIABETES MELLITUS WITHOUT COMPLIC 03/11/2018 BOOM MILLER MD Ot E66.9 OBESITY, UNSPECIFIED 03/11/2018 BOOM MILLER MD Ot E78.5 HYPERLIPIDEMIA, UNSPECIFIED 03/11/2018 BOOM MILLER MD Ot G47.33 OBSTRUCTIVE SLEEP APNEA (ADULT) (PEDIATR 03/11/2018 BOOM MILLER MD Ot G89.29 OTHER CHRONIC PAIN 03/11/2018 BOOM MILLER MD Ot I10 ESSENTIAL (PRIMARY) HYPERTENSION 03/11/2018 BOOM MILLER MD Ot I25.10 ATHSCL HEART DISEASE OF [place] CORONARY 03/11/2018 BOOM MILLER MD Ot I35.0 NONRHEUMATIC AORTIC (VALVE) STENOSIS 03/11/2018 BOOM MILLER MD Ot I48.0 PAROXYSMAL ATRIAL FIBRILLATION 03/11/2018 BOOM MILLER MD Ot R07.9 CHEST PAIN, UNSPECIFIED 03/11/2018 BOOM MILLER MD Ot Z68.37 BODY MASS INDEX (BMI) 37.0-37.9, ADULT 03/11/2018 BOOM MILLER MD Ot Z79.4 MOP MACHINE OPERATOR (CURRENT) USE OF INSULIN 03/11/2018 BOOM MILLER MD Ot Z79.899 OTHER MOP MACHINE OPERATOR (CURRENT) DRUG THERAPY 03/11/2018 BOOM MILLER MD, Ot Z87.891 PERSONAL HISTORY OF NICOTINE DEPENDENCE 03/11/2018 BOOM MILLER MD Ot Z95.5 PRESENCE OF CORONARY ANGIOPLASTY IMPLANT 03/31/2018 BOOM MILLER MD Ot Z79.01 FPC (CURRENT) USE OF ANTICOAGULANT 04/18/2018 BOOM MILLER MD Ot Z79.01 FPC (CURRENT) USE OF ANTICOAGULANT 05/05/2018 BOOM MILLER MD Ot I48.0 PAROXYSMAL ATRIAL FIBRILLATION 05/05/2018 BOOM MILLER MD Ot Z79.01 FPC (CURRENT) USE OF ANTICOAGULANT 05/30/2018 BOOM MILLER MD Ot I48.0 PAROXYSMAL ATRIAL FIBRILLATION 05/30/2018 BOOM MILLER MD Ot Z79.01 FPC (CURRENT) USE OF ANTICOAGULANT 06/06/2018 BOOM MILLER MD Ot I48.0 PAROXYSMAL ATRIAL FIBRILLATION 06/06/2018 BOOM MILLER MD Ot Z79.01 MOP MACHINE OPERATOR (CURRENT) USE OF ANTICOAGULANT 07/11/2018 BOOM MILLER MD Ot I48.0 PAROXYSMAL ATRIAL FIBRILLATION 07/11/2018 BOOM MILLER MD Ot Z79.01 FPC (CURRENT) USE OF ANTICOAGULANT 07/12/2018 BOOM MILLER MD Ot I48.0 PAROXYSMAL ATRIAL FIBRILLATION 07/12/2018 BOOM MILLER MD Ot Z79.01 MOP MACHINE OPERATOR (CURRENT) USE OF ANTICOAGULANT 07/14/2018 HOLLI MD, MICHAEL J Ot A41.9 SEPSIS, UNSPECIFIED ORGANISM 07/14/2018 MICHAEL DE LA GARZA MD Ot E11.9 TYPE 2 DIABETES MELLITUS WITHOUT COMPLIC 07/14/2018 MICHAEL DE LA GARZA MD Ot E78.5 HYPERLIPIDEMIA, UNSPECIFIED 07/14/2018 MICHAEL DE LA GARZA MD Ot I11.0 HYPERTENSIVE HEART DISEASE WITH HEART FA 07/14/2018 MICHAEL DE LA GARZA MD Ot I21.A1 MYOCARDIAL INFARCTION TYPE 2 07/14/2018 MICHAEL DE LA GARZA MD Ot I25.10 ATHSCL HEART DISEASE OF [place] CORONARY 07/14/2018 MICHAEL DE LA GARZA MD Ot I48.91 UNSPECIFIED ATRIAL FIBRILLATION 07/14/2018 MICHAEL DE LA GARZA MD Ot I50.30 UNSPECIFIED DIASTOLIC (CONGESTIVE) HEART 07/14/2018 MICHAEL DE LA GARZA MD Ot I70.0 ATHEROSCLEROSIS OF [place] 07/14/2018 MICHAEL DE LA GARZA MD Ot J18.9 PNEUMONIA, UNSPECIFIED ORGANISM 07/14/2018 MICHAEL DE LA GARZA MD Ot K21.9 GASTRO-ESOPHAGEAL REFLUX DISEASE WITHOUT 07/14/2018 MICHAEL DE LA GARZA MD Ot N39.0 URINARY TRACT INFECTION, SITE NOT SPECIF 07/14/2018 MICHAEL DE LA GARZA MD Ot R07.9 CHEST PAIN, UNSPECIFIED 07/14/2018 MICHAEL DE LA GARZA MD Ot R50.9 FEVER, UNSPECIFIED 07/14/2018 MICHAEL DE LA GARZA MD Ot Z79.01 FPC (CURRENT) USE OF ANTICOAGULANT 07/14/2018 MICHAEL DE LA GARZA MD Ot Z79.02 MOP MACHINE OPERATOR (CURRENT) USE OF ANTITHROMBOTI 07/14/2018 MICHAEL DE LA GARZA MD Ot Z79.4 FPC (CURRENT) USE OF INSULIN 07/14/2018 MICHAEL DE LA GARZA MD Ot Z79.82 MOP MACHINE OPERATOR (CURRENT) USE OF ASPIRIN 07/14/2018 MICHAEL DE LA GARZA MD Ot Z87.19 PERSONAL HISTORY OF OTHER DISEASES OF TH 07/14/2018 MICHAEL DE LA GARZA MD Ot Z87.891 PERSONAL HISTORY OF NICOTINE DEPENDENCE 07/14/2018 MICHAEL DE LA GARZA MD Ot Z88.5 ALLERGY STATUS TO NARCOTIC AGENT STATUS 07/14/2018 MICHAEL DE LA GARZA MD Ot Z95.5 PRESENCE OF CORONARY ANGIOPLASTY IMPLANT Procedures Code Description Performed By Performed On PROCEDURE ON SINGLE VESSEL 11/13/2011 00.45 INSERTION OF ONE VASCULAR STENT 11/13/2011 00.66 PERCUTANEOUS TRANSLUMINAL CORONARY ANGIO 11/13/2011 36.07 INSRT OF DRUG-ELUTING CORON ARTERY STENT 11/13/2011 37.22 LEFT HEART CARDIAC CATH 11/13/2011 88.53 LT HEART ANGIOCARDIOGRAM 11/13/2011 88.56 CORONAR ARTERIOGR-2 CATH 11/13/2011 99.20 INJECT/INFUSE PLATELET INHIBITOR 11/13/2011 58107 ROUTINE VENIPUNCTURE 01/14/2012 28639 A1C (IN-HOUSE) 01/14/2012 44316 CMP 01/15/2012 [id number] GFR CALC (RESULT ONLY) 01/15/2012 12328 ROUTINE VENIPUNCTURE 04/13/2012 35691 BMP 04/13/2012 [id number] GFR CALC (RESULT ONLY) 04/13/2012 69361 A1C (IN-HOUSE) 04/25/2012 93542 MICRO ALBUMIN-IN HOUSE 04/25/2012 19196 MICROALBUMIN 04/25/2012 17139 HEPATITIS PROFILE 05/24/2012 37588 ROUTINE VENIPUNCTURE 08/05/2012 56350 A1C (IN-HOUSE) 08/05/2012 16884 CMP 08/05/2012 63900 LIPID PANEL 08/05/2012 [id number] GFR CALC (RESULT ONLY) 08/05/2012 13125 A1C (IN-HOUSE) 11/10/2012 77307 A1C (IN-HOUSE) 02/24/2013 64167 ROUTINE VENIPUNCTURE 05/30/2013 94386 EKG, TRACING (IN-HOUSE) 05/30/2013 98418 LIPID PANEL 05/30/2013 40838 MAGNESIUM 05/30/2013 42504 CBC 05/30/2013 [id number] GFR CALC (RESULT ONLY) 05/30/2013 80711 CMP 05/30/2013 88522 TSH 05/30/2013 76221 NUCLEAR STRESS TESTING 07/28/2013 90202 ECHO 2D 07/28/2013 72444 MAMMOGRAM, SCREENING 10/23/2013 97053 XRAY CERVICAL SPINE, 2 OR 3 VIEWS 02/20/2014 84922 XRAY WRIST RIGHT COMP MIN 3 VIEWS 03/06/2014 61380 A1C (IN-HOUSE) 03/23/2014 68673 XRAY CERVICAL SPINE, 2 OR 3 VIEWS [...] ALT (SGPT) 47 IU/L 0-32 Microalb/Creat Ratio, Randm Ur - 07/09/16 17:06 Creatinine, Urine 31.9 [...] or blood by coagulation assay 1.1 0.8-1.4 CMP - 01/17/18 14:37 GLUCOSE 262 mg/dL 65-99 UREA NITROGEN (BUN) 33 mg/dL 7-25 CREATININE 1.27 mg/dL 0.50-0.99 eGFR NON-AFR. BELGIAN 46 mL/min/1.73m2 > OR=60 eGFR 53 mL/min/1.73m2 [...] or blood by coagulation assay 1.0 0.8-1.4 Complete urinalysis with reflex to culture - 03/09/18 08:48 Urine color determination YELLOW NRG Urine clarity determination SLIGHTLY CLOUDY NRG Urine pH measurement by test strip [...] erythrocyte count by microscopy (number/high power field) RARE NRG Automated urine sediment leukocyte count by microscopy (number/high power field ) [HPF] NRG Bacteria detection in urine sediment by light microscopy MODERATE NRG Squamous epithelial cells detection in urine sediment by light microscopy 0-2 NRG Crystals detection in urine sediment by light microscopy NONE NRG Casts detection in urine sediment by light microscopy PRESENT NRG Mucus detection in urine sediment by light microscopy NEGATIVE NRG Complete urinalysis with reflex to culture YES NRG Hyaline casts detection in urine sediment by light microscopy 5-10 NRG Renal epithelial cells detection in urine sediment by light microscopy NONE NRG Bacterial urine culture - 03/09/18 08:48 Bacterial urine culture NG NRG Automated blood complete blood count (hemogram) panel - 03/09/18 08:56 Blood leukocytes automated count (number/volume) 6.4 10*3/uL 4.3-11.0 Blood erythrocytes automated count (number/volume) 4.87 10*6/uL 4.35-5.85 Venous blood hemoglobin measurement (mass/volume) 12.6 g/dL 11.5-16.0 Blood hematocrit (volume fraction) 40 % 35-52 Automated erythrocyte mean corpuscular volume 83 [foz_us] 80-99 Automated erythrocyte mean corpuscular hemoglobin (mass per erythrocyte) 26 pg 25-34 Automated erythrocyte mean corpuscular hemoglobin concentration measurement ( mass/volume) 31 g/dL 32-36 Automated erythrocyte distribution width ratio 15.0 % 10.0-14.5 Automated blood platelet count (count/volume) 182 10*3/uL 130-400 Automated blood platelet mean volume measurement 10.4 [foz_us] 7.4-10.4 PT panel in platelet poor plasma by coagulation assay - 03/09/18 08:56 Prothrombin time (PT) in platelet poor plasma by coagulation assay 21.3 s 12.2-14.7 INR in platelet poor plasma or blood by coagulation assay 1.8 0.8-1.4 Activated partial thromboplastin time (aPTT) in platelet poor plasma bycoagulation assay - 03/09/18 08:56 Activated partial thromboplastin time (aPTT) in platelet poor plasma bycoagulation assay 47 s 24-35 Comprehensive metabolic panel - 03/09/18 08:56 Serum or plasma sodium measurement (moles/volume) 138 mmol/L 135-145 Serum or plasma potassium measurement (moles/volume) 3.9 mmol/L 3.6-5.0 Serum or plasma chloride measurement (moles/volume) 102 mmol/L 98-107 Carbon dioxide 23 mmol/L 21-32 Serum or plasma anion gap determination (moles/volume) 13 mmol/L 5-14 Serum or plasma urea nitrogen measurement (mass/volume) 35 mg/dL 7-18 Serum or plasma creatinine measurement (mass/volume) 1.39 mg/dL 0.60-1.30 Serum or plasma urea nitrogen/creatinine mass ratio 25 [facility] Serum or plasma creatinine measurement with calculation of estimated glomerular filtration rate 39 [facility] Serum or plasma glucose measurement (mass/volume) 84 mg/dL 70-105 Serum or plasma calcium measurement (mass/volume) 10.2 mg/dL 8.5-10.1 Serum or plasma total bilirubin measurement (mass/volume) 0.3 mg/dL 0.1-1.0 Serum or plasma alkaline phosphatase measurement (enzymatic activity/volume) 94 U/L 40-136 Serum or plasma aspartate aminotransferase measurement (enzymatic activity/ volume) 65 U/L 5-34 Serum or plasma alanine aminotransferase measurement (enzymatic activity/volume ) 54 U/L 0-55 Serum or plasma protein measurement (mass/volume) 8.7 g/dL 6.4-8.2 Serum or plasma albumin measurement (mass/volume) 4.3 g/dL 3.2-4.5 CALCIUM CORRECTED 10.0 mg/dL 8.5-10.1 Lipid 1996 panel - 03/09/18 08:56 Serum or plasma triglyceride measurement (mass/volume) 465 mg/dL <150 Serum or plasma cholesterol measurement (mass/volume) 232 mg/dL < 200 Serum or plasma cholesterol in HDL measurement (mass/volume) 30 mg/ dL 40-60 Cholesterol in LDL [mass/volume] in serum or plasma by direct assay 124 mg/dL 1-129 Serum or plasma cholesterol in VLDL measurement (mass/volume) 93 mg/ dL 5-40 Methicillin resistant Staphylococcus aureus (MRSA) screening culture - 08:56 Methicillin resistant Staphylococcus aureus (MRSA) screening culture NEG [facility] Influenza virus A and B antigen detection - 07/11/18 21:58 FLU RESULT NEGATIVE FOR INFLUENZA A AND B ANTIGENS BY IA [facility] Complete blood count (CBC) with automated white blood cell (WBC) differential - 07/11/18 22:05 Blood leukocytes automated count (number/volume) 11.8 10*3/uL 4.3-11.0 Blood erythrocytes automated count (number/volume) 4.55 10*6/uL 4.35-5.85 Venous blood hemoglobin measurement (mass/volume) 12.1 g/dL 11.5-16.0 Blood hematocrit (volume fraction) 40 % 35-52 Automated erythrocyte mean corpuscular volume 87 [foz_us] 80-99 Automated erythrocyte mean corpuscular hemoglobin (mass per erythrocyte) 27 pg 25-34 Automated erythrocyte mean corpuscular hemoglobin concentration measurement ( mass/volume) 31 g/dL 32-36 Automated erythrocyte distribution width ratio 14.3 % 10.0-14.5 Automated blood platelet count (count/volume) 174 10*3/uL 130-400 Automated blood platelet mean volume measurement 11.0 [foz_us] 7.4-10.4 Automated blood neutrophils/100 leukocytes 85 % 42-75 Automated blood lymphocytes/100 leukocytes 10 % 12-44 Blood monocytes/100 leukocytes 4 % 0-12 Automated blood eosinophils/100 leukocytes 1 % 0-10 Automated blood basophils/100 leukocytes 0 % 0-10 Blood neutrophils automated count (number/volume) 10.0 10*3 1.8-7.8 Blood lymphocytes automated count (number/volume) 1.2 10*3 1.0-4.0 Blood monocytes automated count (number/volume) 0.4 10*3 0.0-1.0 Automated eosinophil count 0.1 10*3/uL 0.0-0.3 Automated blood basophil count (count/volume) 0.1 10*3/uL 0.0-0.1 Comprehensive metabolic panel - 07/11/18 22:05 Serum or plasma sodium measurement (moles/volume) 142 mmol/L 135-145 Serum or plasma potassium measurement (moles/volume) 4.4 mmol/L 3.6-5.0 Serum or plasma chloride measurement (moles/volume) 101 mmol/L 98-107 Carbon dioxide 22 mmol/L 21-32 Serum or plasma anion gap determination (moles/volume) 19 mmol/L 5-14 Serum or plasma urea nitrogen measurement (mass/volume) 25 mg/dL 7-18 Serum or plasma creatinine measurement (mass/volume) 1.04 mg/dL 0.60-1.30 Serum or plasma urea nitrogen/creatinine mass ratio 24 NRG Serum or plasma creatinine measurement with calculation of estimated glomerular filtration rate 54 NRG Serum or plasma glucose measurement (mass/volume) 223 mg/dL 70-105 Serum or plasma calcium measurement (mass/volume) 9.6 mg/dL 8.5-10.1 Serum or plasma total bilirubin measurement (mass/volume) 0.7 mg/dL 0.1-1.0 Serum or plasma alkaline phosphatase measurement (enzymatic activity/volume) 106 U/L 40-136 Serum or plasma aspartate aminotransferase measurement (enzymatic activity/ volume) 53 U/L 5-34 Serum or plasma alanine aminotransferase measurement (enzymatic activity/volume ) 48 U/L 0-55 Serum or plasma protein measurement (mass/volume) 8.2 g/dL 6.4-8.2 Serum or plasma albumin measurement (mass/volume) 4.1 g/dL 3.2-4.5 CALCIUM CORRECTED 9.5 mg/dL 8.5-10.1 TROPONIN T - 07/11/18 22:05 TROPONIN T 65 % <=10 PT panel in platelet poor plasma by coagulation assay - 07/11/18 22:05 Prothrombin time (PT) in platelet poor plasma by coagulation assay 14.8 s 12.2-14.7 INR in platelet poor plasma or blood by coagulation assay 1.1 0.8-1.4 Activated partial thromboplastin time (aPTT) in platelet poor plasma bycoagulation assay - 07/11/18 22:05 Activated partial thromboplastin time (aPTT) in platelet poor plasma bycoagulation assay 34 s 24-35 Fibrin D-dimer FEU measurement in platelet poor plasma (mass/volume) - 22:05 Fibrin D-dimer FEU measurement in platelet poor plasma (mass/volume) 1.22 ug/mL 0.00-0.49 Blood lactic acid measurement (moles/volume) - 07/11/18 22:18 Blood lactic acid measurement (moles/volume) 2.52 mmol/L 0.50-2.00 Bacterial blood culture - 07/11/18 22:18 Bacterial blood culture NG NRG Arterial blood gas measurement - 07/11/18 22:40 Blood pCO2 37 mm[Hg] 35-45 Blood pO2 61 mm[Hg] 79-93 Arterial blood bicarbonate measurement (moles/volume) 28 mmol/L 23-27 Arterial blood base excess by calculation 4.0 mmol/L -2.5 -2.5 Arterial blood oxygen saturation measurement 93 % 94-100 * Inhaled oxygen flow rate 5L NRG Arterial blood pH measurement with patient temperature correction 7.48 7.37-7.43 Arterial blood carbon dioxide, total measurement (moles/volume) 28.7 mmol/L 21.0-31.0 Body site LT RAD NRG Assessment of wrist artery patency prior to arterial puncture POS NRG Setting of ventilation mode NO NRG Measurement of body temperature 99.6 NRG Bacterial blood culture - 07/11/18 23:14 Bacterial blood culture NG NRG Complete urinalysis with reflex to culture - 07/11/18 23:57 Urine color determination YELLOW NRG Urine clarity determination SL CLOUDY NRG Urine pH measurement by test strip 5.5 5-9 Specific gravity of urine by test strip 1.025 1.016- 1.022 Urine protein assay by test strip, semi-quantitative 3+ NEGATIVE Urine glucose detection by automated test strip 1+ NEGATIVE Erythrocytes detection in urine sediment by light microscopy TRACE- L NEGATIVE Urine ketones detection by automated test strip NEGATIVE NEGATIVE Urine nitrite detection by test strip NEGATIVE NEGATIVE Urine total bilirubin detection by test strip NEGATIVE NEGATIVE Urine urobilinogen measurement by automated test strip (mass/volume) 0.2 mg/dL NORMAL Urine leukocyte esterase detection by dipstick TRACE NEGATIVE Automated urine sediment erythrocyte count by microscopy (number/high power field) [HPF] NRG Automated urine sediment leukocyte count by microscopy (number/high power field ) [HPF] NRG Bacteria detection in urine sediment by light microscopy MODERATE NRG Squamous epithelial cells detection in urine sediment by light microscopy 2-5 NRG Crystals detection in urine sediment by light microscopy NONE NRG Casts detection in urine sediment by light microscopy NONE NRG Mucus detection in urine sediment by light microscopy NEGATIVE NRG Complete urinalysis with reflex to culture CULTURE PENDING NRG Renal epithelial cells detection in urine sediment by light microscopy 5-10 NRG Bacterial urine culture - 07/11/18 23:57 Bacterial urine culture NG NRG Serum or plasma lactate measurement (moles/volume) - 07/12/18 00:20 Serum or plasma lactate measurement (moles/volume) 2.86 mmol/L 0.50-2.00 PROBNP FS - 07/12/18 00:20 PROBNP FS 4517.0 pg/mL <75.0 Encounters ACCT No. Visit Date/Time Discharge Status Pt. Type Provider Facility Loc./Unit Complaint [id number] 06/01/2014 14:09:00 06/01/2014 23:59:59 CLS Outpatient GEE AMADO MD [id number] 04/30/2014 13:56:00 04/30/2014 23:59:59 CLS Outpatient GEE AMADO MD [id number] 03/29/2014 12:12:00 03/29/2014 23:59:59 CLS Outpatient GEE AMADO MD [id number] 03/23/2014 13:24:00 03/23/2014 23:59:59 CLS Outpatient GEE AMADO MD [id number] 03/06/2014 13:45:00 03/06/2014 23:59:59 CLS Outpatient LALITO TERRAZAS APRN [id number] 02/20/2014 14:47:00 02/20/2014 23:59:59 CLS Outpatient GEE AMADO MD [id number] 02/06/2014 16:34:00 02/06/2014 23:59:59 CLS Outpatient GEE AMADO MD [id number] 12/14/2013 00:00:00 12/14/2013 23:59:59 CLS Outpatient WHITE DDSIBAN [id number] 10/23/2013 09:58:00 10/23/2013 23:59:59 CLS Outpatient GEORGETTE LAWRENCE APRNGRETTA Cleary [id number] 09/08/2013 09:39:00 09/08/2013 23:59:59 CLS Outpatient JUSTICE WADE DO [id number] 07/28/2013 08:44:00 07/28/2013 23:59:59 CLS Outpatient JUSTICE WADE DO [id number] 06/06/2013 15:27:00 06/06/2013 23:59:59 CLS Outpatient WHITE DDSJOELLE [id number] 05/30/2013 09:38:00 05/30/2013 23:59:59 CLS Outpatient GEE AMADO MD [id number] 04/25/2013 08:38:00 04/25/2013 23:59:59 CLS Outpatient WHITE DDSIBAN [id number] 03/05/2013 00:00:00 03/05/2013 23:59:59 CLS Outpatient JUSTICE WADE DO [id number] 02/24/2013 07:56:00 02/24/2013 23:59:59 CLS Outpatient GEE AMADO MD [id number] 01/30/2013 08:00:00 01/30/2013 23:59:59 CLS Outpatient WHITE DDSIBAN [id number] 12/19/2012 00:00:00 12/19/2012 23:59:59 CLS Outpatient WHITE DDS, IBAN D [id number] 05/24/2012 09:24:00 05/24/2012 23:59:59 CLS Outpatient GEE AMADO MD [id number] 04/25/2012 09:57:00 04/25/2012 23:59:59 CLS Outpatient GEE AMADO MD [id number] 04/13/2012 09:38:00 04/13/2012 23:59:59 [place] [id number] 01/14/2012 14:34:00 01/14/2012 23:59:59 CLS Outpatient GEE AMADO MD [id number] 11/23/2012 10:51:00 Document Registration [id number] 08/05/2012 09:03:00 Document Registration [id number] 07/10/2016 11:07:00 Document Registration [id number] 05/27/2018 15:00:00 05/27/2018 23:59:59 CLS Outpatient GEE AMADO MD [facility] [place] [id number] 01/17/2018 13:40:00 Document Registration [id number] 07/11/2018 21:48:00 07/12/2018 02:40:00 DIS Outpatient MICHAEL DE LA GARZA MD [facility] ER FS FEVER,SOB [id number] 05/31/2018 00:10:00 05/31/2018 23:59:59 CLS Preadmit BOOM MILLER MD [facility] LAB ENCOUNTER FOR MONITORING COUMADIN THERAPY [id number] 03/29/2018 12:33:00 05/30/2018 00:01:00 DIS Outpatient BOOM MILLER MD [facility] LAB ENCOUNTER FOR MONITORING COUMADIN THERAPY [id number] 03/09/2018 08:29:00 03/09/2018 17:05:00 DIS Outpatient BOOM MILLER MD [facility] CATH CP,CAD,PAF,HTN [id number] 02/05/2018 16:36:00 02/05/2018 23:59:59 CLS Outpatient BOOM MILLER MD [facility] LAB PT/INR LAB [id number] 09/01/2017 11:42:00 09/01/2017 23:59:59 CLS Preadmit GEE AMADO MD [facility] RAD MEDICARE ANNUAL WELLNESS VISIT,INITIAL [id number] 06/28/2017 00:42:00 06/28/2017 23:59:59 CLS Preadmit BOOM MILLER MD [facility] LAB I48.91 [id number] 06/15/2017 10:55:00 06/27/2017 00:01:00 DIS Outpatient BOOM MILLER MD [facility] LAB I48.91 [id number] 04/03/2017 19:54:00 04/04/2017 07:02:00 DIS Outpatient BOOM MILLER MD [facility] SLEEP G47.33 OBSTRUCTIVE SLEEP APNEA [id number] 03/24/2017 08:12:00 03/24/2017 23:59:59 CLS Outpatient BOOM MILLER MD [facility] ATRIAL FIBRILLATION [id number] 03/05/2017 08:13:00 03/06/2017 13:30:00 DIS Outpatient BOOM MILLER MD [facility] ABN STRESS TEST, CAD, HTN [id number] 03/01/2017 07:44:00 03/01/2017 23:59:59 CLS Outpatient BOOM MILLER MD [facility] CARD AORTIC VALVE SCLEROSIS [id number] 02/22/2017 11:38:00 02/22/2017 23:59:59 CLS Outpatient BOOM MILLER MD [facility] CARD I35.8 AORTIC VALVE SCLEROSIS [id number] 09/11/2015 07:51:00 09/11/2015 23:59:59 CLS Outpatient ILANA SANTAMARIA MD [facility] RAD STENOSIS [id number] 08/09/2015 17:28:00 08/09/2015 23:59:59 CLS Outpatient XANDER ESQUIVEL MD [facility] RAD CERVICAL RADICULOPATHY [id number] 03/13/2015 07:10:00 03/13/2015 14:20:00 DIS Outpatient BOOM MILLER MD [facility] CATH HTN,HLP,CAD,CP [id number] 02/27/2015 11:59:00 02/27/2015 23:59:59 CLS Outpatient BOOM MILLER MD [facility] CARD HTN,HLD,CPS [id number] 10/31/2013 10:27:00 10/31/2013 23:59:59 CLS Outpatient MELINDA VANGRETTA Cleary APRN [facility] RAD SCREENING [id number] 08/28/2013 08:36:00 08/28/2013 17:20:00 DIS Outpatient BOOM MILLER MD [facility] CATH CAD,CP,HLP,HTN,DM [id number] 08/18/2013 12:27:00 08/18/2013 23:59:59 CLS Outpatient VIVIANA COTTO [facility] CARD CAD,CP,HLP, HTN,DM [id number] 10/26/2012 12:11:00 10/26/2012 14:26:00 DIS Emergency RK RAWLS MD [facility] ER ELEVATED BP [id number] 08/07/2015 09:49:00 Document Registration [id number] 11/13/2011 14:00:00 Document Registration
[2018-07-21 21:15] VITALS: BP 98/57
[2018-07-21] MEDS: NS IV 1000 ML 1,000 ML IV SCH (21:26)
[2018-07-21 21:30] VITALS: BP 98/57
[2018-07-21 21:45] VITALS: BP 104/60
[2018-07-21 22:00] VITALS: BP 111/72
[2018-07-21 23:00] VITALS: BP 108/61
[2018-07-22] VITALS (24 sets, daily range): BP systolic 102–188; BP diastolic 50–96
[2018-07-22 03:54] LABS: HEMOGLOBIN 10.7 G/DL (11.5-16.0); MEAN PLATELET VOLUME 10.8 FL (7.4-10.4); RED CELL DISTRIBUTION WIDTH 14.3 % (10.0-14.5); WHITE BLOOD COUNT 10.2 10^3/uL (4.3-11.0)
[2018-07-22 04:17] LABS: CALCIUM 8.7 MG/DL (8.5-10.1); CREATININE SERUM 2.01 MG/DL (0.60-1.30); MAGNESIUM 1.9 MG/DL (1.8-2.4); PHOSPHORUS 5.1 MG/DL (2.3-4.7); POTASSIUM 5.2 MMOL/L (3.6-5.0)
[2018-07-22] MEDS ORDERED: DEXTROSE 50% 50 ML (IMS) SYR ONE (04:35)
--- NOTE | 2018-07-22 05:11 | History & Physicial (CHS) ---
HPI History of Present Illness: 62 yo female was recently admitted at another hospital with A fib with RVR and went home a day and a half ago. She started amiodarone and another medication. Yesterday she felt very faint, short of breath and like everything was swirling. Her suspected hypoglycemia and gave her glucose tabs which did not help so they went to the ER, where she was found to have profound bradycardia with marked hypotension, requiring external pacing and levophed. Dr. Garsia placed temporary pacemaker last night. She is feeling a little better this am. Date seen by provider: July 22, 2018 Time Seen by Provider: 05:35 Attending Physician Jaime Garsia MD PCP Obdulio Cabral MD Consult Jaime GARSIA MD Date of Admission July 21, 2018 at 20:40 Home Medications Home Medications Reviewed patient Home Medication Reconciliation performed by pharmacy medication reconciliations phlebotomy services technician and/or nursing. Patients Allergies have been reviewed. Allergies Coded Allergies: morphine (Verified Adverse Reaction, Severe, hallucination, 07/12/18) HHL-Daoiif-Pgehyh Hx Patient Social History Alcohol Use: Denies Use Recreational Drug Use: No Type Used: Cigarettes 2nd Hand Smoke Exposure: No Recent Foreign Travel: No Contact w/other who traveled: No Recent Hopitalizations: No Recent Infectious Disease Expo: No Immunizations Up To Date Date of Pneumonia Vaccine: Mar 05, 2013 Date of Influenza Vaccine: Dec 11, 2014 Past Medical History PMHx: DMII HTN HLD A fib SurgHx: Hysterectomy Cholecystectomy Neck surgery Family Medical History Significant Family History: No Pertinent Family Hx Review of Systems (CHC) Constitutional: No fever Respiratory: No cough; short of breath Cardiovascular: see HPI Gastrointestinal: No constipation, No diarrhea, No nausea, No vomiting Genitourinary: No dysuria Musculoskeletal: no symptoms reported Skin: no symptoms reported Psychiatric/Neurological: No Symptoms Reported Reviewed Test Results Reviewed Test Results Lab Laboratory Tests Test 07/21/18 18:34 07/21/18 22:01 07/22/18 03:30 07/22/18 04:59 Range/Units White Blood Count 12.6 H 10.2 4.3-11.0 10^3/uL Red Blood Count 4.43 4.03 L 4.35-5.85 10^6/uL Hemoglobin 11.6 10.7 L 11.5-16.0 G/DL Hematocrit 39 35 35-52 % Mean Corpuscular Volume 89 87 80-99 FL Mean Corpuscular Hemoglobin 26 27 25-34 PG Mean Corpuscular Hemoglobin Concent 29 L 31 L 32-36 G/DL Red Cell Distribution Width 14.0 14.3 10.0-14.5 % Platelet Count 396 288 130-400 10^3/uL Mean Platelet Volume 10.9 H 10.8 H 7.4-10.4 FL Neutrophils (%) (Auto) 68 42-75 % Lymphocytes (%) (Auto) 23 12-44 % Monocytes (%) (Auto) 5 0-12 % Eosinophils (%) (Auto) 2 0-10 % Basophils (%) (Auto) 1 0-10 % Neutrophils # (Auto) 8.5 H 1.8-7.8 X 10^3 Lymphocytes # (Auto) 2.9 1.0-4.0 X 10^3 Monocytes # (Auto) 0.6 0.0-1.0 X 10^3 Eosinophils # (Auto) 0.2 0.0-0.3 10^3/uL Basophils # (Auto) 0.1 0.0-0.1 10^3/uL Neutrophils % (Manual) 59 % Lymphocytes % (Manual) 29 % Monocytes % (Manual) 4 % Eosinophils % (Manual) 1 % Basophils % (Manual) 0 % Metamyelocytes % 0 % Myelocytes % 1 % Band Neutrophils 6 % Prothrombin Time 14.8 H 12.2-14.7 SEC INR Comment 1.1 0.8-1.4 Sodium Level 142 140 135-145 MMOL/L Potassium Level 5.6 H 5.2 H 3.6-5.0 MMOL/L Chloride Level 103 108 H 98-107 MMOL/L Carbon Dioxide Level 25 20 L 21-32 MMOL/L Anion Gap 14 12 5-14 MMOL/L Blood Urea Nitrogen 51 H 54 H 7-18 MG/DL Creatinine 2.42 H 2.01 H 0.60-1.30 MG/DL Estimat Glomerular Filtration Rate 20 25 BUN/Creatinine Ratio 21 27 Glucose Level 82 49 *L 70-105 MG/DL Calcium Level 9.3 8.7 8.5-10.1 MG/DL Corrected Calcium 9.8 8.5-10.1 MG/DL Total Bilirubin 0.3 0.1-1.0 MG/DL Aspartate Amino Transf (AST/SGOT) 72 H 5-34 U/L Alanine Aminotransferase (ALT/SGPT) 55 0-55 U/L Alkaline Phosphatase 113 40-136 U/L Troponin T 46 H <=10 NG/L Total Protein 7.7 6.4-8.2 GM/DL Albumin 3.4 3.2-4.5 GM/DL Glucometer 91 149 H 70-110 MG/DL Phosphorus Level 5.1 H 2.3-4.7 MG/DL Magnesium Level 1.9 1.8-2.4 MG/DL Radiology CXR 07/21- no acute process Physical Exam-(CHC) Physical Exam Vital Signs VS - Last 72 Hours, by Label 07/21/18 07/21/18 07/21/18 07/21/18 18:07 19:26 20:45 21:00 Temp 97.1 97.1 96.9 Pulse 60 43 70 Resp 19 23 10 B/P (MAP) 92/56 (68) 135/101 (112) 110/60 (77) Pulse Ox 96 99 99 O2 Delivery Room Air Nasal Cannula Nasal Cannula O2 Flow Rate 3.00 2.00 2.00 07/21/18 07/21/18 07/21/18 07/21/18 21:15 21:16 21:30 21:45 Pulse 69 69 69 69 Resp 17 17 15 B/P (MAP) 98/57 (71) 98/57 (71) 104/60 (75) Pulse Ox 99 99 98 O2 Delivery Nasal Cannula Nasal Cannula Nasal Cannula O2 Flow Rate 2.00 2.00 2.00 07/21/18 07/21/18 07/22/18 07/22/18 22:00 23:00 00:00 00:00 Temp 97.3 Pulse 69 69 Resp 9 28 B/P (MAP) 111/72 (85) 108/61 (77) Pulse Ox 98 97 98 O2 Delivery Nasal Cannula Nasal Cannula Nasal Cannula O2 Flow Rate 2.00 2.00 2.00 07/22/18 07/22/18 07/22/18 07/22/18 00:00 01:00 01:00 02:00 Pulse 69 70 71 69 Resp 15 14 11 B/P (MAP) 106/59 (75) 103/61 (75) 104/57 (73) Pulse Ox 98 98 98 O2 Delivery Nasal Cannula Nasal Cannula Nasal Cannula O2 Flow Rate 2.00 2.00 2.00 07/22/18 07/22/18 07/22/18 07/22/18 03:00 04:00 04:00 05:00 Pulse 72 72 71 Resp 11 12 17 B/P (MAP) 102/58 (73) 110/68 (82) 114/64 (81) Pulse Ox 97 98 98 98 O2 Delivery Nasal Cannula Nasal Cannula Nasal Cannula Nasal Cannula O2 Flow Rate 2.00 2.00 2.00 2.00 07/22/18 07/22/18 07/22/18 07/22/18 06:00 07:00 07:13 08:00 Temp 98.2 Pulse 69 70 69 70 Resp 9 22 13 B/P (MAP) 118/69 (85) 132/96 (108) 125/67 (86) Pulse Ox 98 98 98 O2 Delivery Nasal Cannula Nasal Cannula Nasal Cannula O2 Flow Rate 2.00 2.00 2.00 07/22/18 07/22/18 07/22/18 07/22/18 08:00 09:00 10:00 11:30 Pulse 71 69 72 Resp 17 12 13 B/P (MAP) 147/71 (96) 155/68 (97) 152/66 (94) Pulse Ox 98 97 97 98 O2 Delivery Nasal Cannula Nasal Cannula Nasal Cannula Nasal Cannula O2 Flow Rate 2.00 2.00 2.00 2.00 07/22/18 07/22/18 07/22/18 07/22/18 12:00 12:00 13:00 13:36 Pulse 71 80 80 Resp 21 19 B/P (MAP) 149/68 (95) 164/76 (105) Pulse Ox 96 98 95 O2 Delivery Nasal Cannula Nasal Cannula Nasal Cannula O2 Flow Rate 2.00 2.00 2.00 07/22/18 14:00 Pulse 78 Resp 20 B/P (MAP) 155/50 (85) Pulse Ox 93 O2 Delivery Nasal Cannula O2 Flow Rate 2.00 Capillary Refill : Less Than 3 Seconds General Appearance: no apparent distress Respiratory: lungs clear, normal breath sounds Cardiovascular: regular rate, rhythm, no murmur Gastrointestinal: normal bowel sounds, non tender, soft Extremities: no pedal edema Neurologic/Psychiatric: alert, normal mood/affect Skin: normal color, warm/dry Assessment/Plan Assessment/Plan Admission Status: Inpatient Order (span 2 midnights) Reason for Inpatient Admission: Profound bradycardia with shock requiring pressor and pacemaker placement along with treatment for acute on chronic kidney insufficiency. (1) Hypotension Status: Resolved Assessment & Plan: Secondary to bradycardia, required levophed initially. Qualifiers: Qualified Codes: I95.2 - Hypotension due to drugs (2) Bradycardia Status: Acute Assessment & Plan: Severe with unstable BP on arrival, now s/p temporary pacemaker and off of levophed. Management per Cardiology. (3) Cardiogenic shock Status: Resolved (4) Atrial fibrillation Status: Acute Assessment & Plan: Cardiology consulted, appreciate recommendations. Qualifiers: Qualified Codes: I48.91 - Unspecified atrial fibrillation (5) Hyperkalemia Status: Acute Assessment & Plan: Secondary to acute renal insufficiency, improving, monitor. (6) Elevated AST (SGOT) Status: Acute Assessment & Plan: Mild, recheck in am. (7) Hyperphosphatemia Status: Acute Assessment & Plan: Anticipate improvement with kidney improvement, recheck in am. (8) Acute renal insufficiency Status: Acute Assessment & Plan: Improving, likely secondary to hypotension which is now resolved, monitor. (9) Diabetes mellitus, type 2 Status: Chronic Assessment & Plan: Diabetic diet, sliding scale insulin (10) CKD (chronic kidney disease) Status: Chronic (11) GERD (gastroesophageal reflux disease) Status: Chronic (12) HLD (hyperlipidemia) Status: Chronic (13) DVT prophylaxis Status: Acute Assessment & Plan: On therapeutic apixaban. Clinical Quality Measures DVT/VTE Risk/Contraindication: Risk Factor Score Per Nursin RFS Level Per Nursing on Admit: 4+=Very High DOMENICA SIMTH MD July 22, 2018 05:10
[2018-07-22] MEDS: NS IV 1000 ML 1,000 ML IV SCH ×2 (06:33→17:56)
--- NOTE | 2018-07-22 09:23 | Cardiology Progress Note ---
Cardiology SOAP Progress Note Subjective: No complaints. Objective: I&O/Vital Signs 07/22/18 07/22/18 07/22/18 07/22/18 01:00 01:00 02:00 03:00 Pulse 70 71 69 72 Resp 14 11 11 B/P (MAP) 103/61 (75) 104/57 (73) 102/58 (73) Pulse Ox 98 98 97 O2 Delivery Nasal Cannula Nasal Cannula Nasal Cannula O2 Flow Rate 2.00 2.00 2.00 07/22/18 07/22/18 07/22/18 07/22/18 04:00 04:00 05:00 06:00 Pulse 72 71 69 Resp 12 17 9 B/P (MAP) 110/68 (82) 114/64 (81) 118/69 (85) Pulse Ox 98 98 98 98 O2 Delivery Nasal Cannula Nasal Cannula Nasal Cannula Nasal Cannula O2 Flow Rate 2.00 2.00 2.00 2.00 07/22/18 07/22/18 07/22/18 07/22/18 07:00 07:13 08:00 08:00 Temp 98.2 Pulse 70 69 70 Resp 22 13 B/P (MAP) 132/96 (108) 125/67 (86) Pulse Ox 98 98 98 O2 Delivery Nasal Cannula Nasal Cannula Nasal Cannula O2 Flow Rate 2.00 2.00 2.00 07/22/18 07/22/18 07/22/18 09:00 10:00 11:30 Pulse 71 69 72 Resp 17 12 13 B/P (MAP) 147/71 (96) 155/68 (97) 152/66 (94) Pulse Ox 97 97 98 O2 Delivery Nasal Cannula Nasal Cannula Nasal Cannula O2 Flow Rate 2.00 2.00 2.00 07/22/18 00:00 Intake Total 1300 ml Output Total 175 ml Balance 1125 ml Weight (Pounds): 223 Weight (Ounces): 0.0 Weight (Calculated Kilograms): 101.006050 Constitutional: No appears stated age, No AAO x 3; apparent distress; No PERRL , No well-developed, No well-nourished, No other Respiratory: No accessory muscle use, No respiratory distress, No chest tender , No chest expansion is symmetric; chest is bilaterally symmetric; No lungs clear to percussion; lungs clear to auscultation; No crackles, No rhonchi, No rales, No stridor, No wheezing, No pleural rub, No other Cardiovascular: regular rate-rhythm; No irregularly irregular, No extra beats, No parasternal heave is noted, No JVD, No edema, No bradycardia, No tachycardia , No point of maximal impulse, No cardiac thrills are palpable; S1 and S2; No gallop/S3, No gallop/S4, No diastolic murmur, No systolic murmur, No friction rub, No click, No other Gastrointestional: No tender, No soft, No round, No distended, No pulsatile mass, No organomegaly, No guarding, No rebound, No tenderness, No hernia, No mass, No audible bowel sounds, No abnormal bowel sounds, No abdominal bruits, No spleenomegaly, No other Extremities: No normal range of motion, No non-tender, No normal inspection, No pedal edema, No calf tenderness, No normal capillary refill, No pelvis stable , No calf tenderness, No inflammation, No pedal edema, No slow capillary refill , No swelling, No other, No abrasion, No clubbing, No cyanosis, No ecchymosis, No laceration, No no lower extremity edema bilateral, No significant edema, No tenderness, No wound Neurologic/Psychiatric: no motor/sensory deficits, alert, normal mood/affect, oriented x 3 Skin: cool Results/Procedures: Labs Laboratory Tests 07/21/18 18:34: White Blood Count 12.6H, Red Blood Count 4.43, Hemoglobin 11.6, Hematocrit 39, Mean Corpuscular Volume 89, Mean Corpuscular Hemoglobin 26, Mean Corpuscular Hemoglobin Concent 29L, Red Cell Distribution Width 14.0, Platelet Count 396, Mean Platelet Volume 10.9H, Neutrophils (%) (Auto) 68, Lymphocytes (%) (Auto) 23 , Monocytes (%) (Auto) 5, Eosinophils (%) (Auto) 2, Basophils (%) (Auto) 1, Neutrophils # (Auto) 8.5H, Lymphocytes # (Auto) 2.9, Monocytes # (Auto) 0.6, Eosinophils # (Auto) 0.2, Basophils # (Auto) 0.1, Neutrophils % (Manual) 59, Lymphocytes % (Manual) 29, Monocytes % (Manual) 4, Eosinophils % (Manual) 1, Basophils % (Manual) 0, Metamyelocytes % 0, Myelocytes % 1, Band Neutrophils 6, Prothrombin Time 14.8H, INR Comment 1.1, Sodium Level 142, Potassium Level 5.6H , Chloride Level 103, Carbon Dioxide Level 25, Anion Gap 14, Blood Urea Nitrogen 51H, Creatinine 2.42H, Estimat Glomerular Filtration Rate 20, BUN/ Creatinine Ratio 21, Glucose Level 82, Calcium Level 9.3, Corrected Calcium 9.8 , Total Bilirubin 0.3, Aspartate Amino Transf (AST/SGOT) 72H, Alanine Aminotransferase (ALT/SGPT) 55, Alkaline Phosphatase 113, Troponin T 46H, Total Protein 7.7, Albumin 3.4 07/21/18 22:01: Glucometer 91 07/22/18 03:30: White Blood Count 10.2, Red Blood Count 4.03L, Hemoglobin 10.7L, Hematocrit 35, Mean Corpuscular Volume 87, Mean Corpuscular Hemoglobin 27, Mean Corpuscular Hemoglobin Concent 31L, Red Cell Distribution Width 14.3, Platelet Count 288, Mean Platelet Volume 10.8H, Sodium Level 140, Potassium Level 5.2H, Chloride Level 108H, Carbon Dioxide Level 20L, Anion Gap 12, Blood Urea Nitrogen 54H, Creatinine 2.01H, Estimat Glomerular Filtration Rate 25, BUN/Creatinine Ratio 27 , Glucose Level 49*L, Calcium Level 8.7, Phosphorus Level 5.1H, Magnesium Level 1.9 07/22/18 04:59: Glucometer 149H A/P: Assessment/Dx: Severe bradycardia, Atrial fibrillation, Cardiogenic shock, CAD, PCI Plan: I saw the patient in the ICU. She still has a temporary pacemaker. I decreased the heart rate of the pacemaker and demonstrated that the patient has sinus rhythm in the 60s. Normal blood pressure. I discussed at length with the patient. 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 The procedure was explained and all the risks and complication were also explained. Dr. West is the primary card doffer for the patient and I we'll transition her care to Dr. West. Dr. West would like to wait further so that Cardizem and metoprolol can wash out from the system and see if the patient continues to have any further bradycardia. I will defer to Dr. West. Continue Ala-Adrianne as for oral anticoagulation. CAD/PCI. Defer to Dr. West. Thank you for your consultation. Please call me if you have any questions. Clayton Oh MD, FACP, FACC, [facility], FHRS, CCDS Interventional Cardiology Cardiac Electrophysiology Vascular Medicine and Endovascular Interventions Jaime OH MD July 22, 2018 09:23
[2018-07-22] MEDS ORDERED: BACITRACIN INJECTION 50,000 UNIT, SODIUM CHLORIDE 0.9% IRRIGATIO 500 ML IR ONE ×2 (09:45)
[2018-07-22] MEDS ORDERED: APIX5TAB PO (09:46)
[2018-07-22] MEDS ORDERED: PRIM50TA33 PO (09:46)
[2018-07-22] MEDS ORDERED: METF500T8 PO (09:46)
[2018-07-22] MEDS ORDERED: AMIO200T4 PO (09:46)
[2018-07-22] MEDS ORDERED: [UNRECOGNIZED DRUG - OTHER] PO (09:46)
[2018-07-22] MEDS ORDERED: SENN-162 PO (09:46)
[2018-07-22] MEDS ORDERED: DILT240C87 PO (09:46)
[2018-07-22] MEDS ORDERED: ceFAZolin INJECTION 1,000 MG ONE ×2 (09:49→09:52)
[2018-07-22] MEDS ORDERED: HEParin (CATH LAB) 1,000 ML IV ONE (09:50)
[2018-07-22] MEDS ORDERED: LIDOCAINE 1% INJ 20 ML 20 ML VIAL ONE (09:50)
[2018-07-22] MEDS ORDERED: NS IV 1000 ML 0 ML ONE (09:50)
[2018-07-22] MEDS ORDERED: NS (IVPB) 50 ML ONE (09:51)
[2018-07-22] MEDS ORDERED: fentaNYL INJECTION 100 MCG/2 ML AMP ONE (10:40)
[2018-07-22] MEDS ORDERED: MIDAZOLAM 5 MG/5 ML (VERSED) VIAL ONE (10:40)
[2018-07-22] MEDS ORDERED: ceFAZolin INJECTION 1,000 MG VIAL IV ONE (10:40)
[2018-07-22] MEDS ORDERED: BACITRACIN 50000 UNITS/500 ML NS IR ONE ×2 (10:45)
[2018-07-22] MEDS ORDERED: DOXY100C PO (10:59)
--- NOTE | 2018-07-22 11:11 | NUR ---
PATIENT HAS A LARGE BOX OF MEDICATIONS WITH HER. I WENT THROUGH THOSE BOTTLES AND UPDATED THE MED REC. SHE HAS THE THREE NEW PRESCRIPTIONS THAT WERE PRESCRIBED TO HER AT DISCHARGE FROM [facility] BUT SHE STATES SHE IS UNSURE WHAT ELSE WAS CHANGED SHE HAS NOT HAD TIME TO MAKE ALL THE NECESSARY CHANGES IN HER MED BOX. I HAD A COPY OF THE DISCHARGE MED LIST FAXED OVER FROM [facility] TO UPDATE THEOSE OTHER CHANGES. [facility] DISCHARGE: START TAKING: AMIODARONE 200MG DAILY DILTIAZEM 240MG DAILY DOXYCYCLINE 100MG BID #6 (HAS THE LEAFLET BUT NO BOTTLE, ASSUME IT WAS FINISHED) CHANGE HOW YOU TAKE: LEVEMIR 50 UNITS BID (WAS TAKING 80 UNITS BID) LISINOPRIL 20MG DAILY (WAS PRESCRIBED BID) STOP TAKING: METFORMIN ER 500MG BID (noted in discharge dialogue that metformin was held as GFR is less than 45 and suspicion that it might worsen with diuretics) AMLODIPINE 10MG DAILY ADDITIONALLY THE PATIENT HAS ASPIRIN 81MG AND A COMPOUNDED [id number]-AMSETL SHE TAKES ONCE WEEKLY THAT I ADDED TO THE MED REC. THESE AND FISH OIL SHE STATES SHE TAKES OTC WERE NOT ADDRESSED IN THE DISCHARGE FROM [facility].
[2018-07-22] MEDS ORDERED: HYDROcodone/APAP 10 MG/325 MG (LORTAB) TAB PO PRN (13:15)
[2018-07-22] MEDS ORDERED: [UNRECOGNIZED DRUG - OTHER] PO PRN (13:15)
[2018-07-22] MEDS ORDERED: DOCUSATE SODIUM PO PRN (13:15)
[2018-07-22] MEDS ORDERED: CYCLOBENZAPRINE 10 MG (FLEXERIL) TAB PO PRN (13:15)
[2018-07-22] MEDS ORDERED: SENNOSIDES PO PRN (13:15)
[2018-07-22] MEDS ORDERED: SENNA W/DOCUSATE (SENOKOT S) TABLET PO PRN (13:30)
[2018-07-22] MEDS ORDERED: SIMETHICONE 80 MG (MYLICON) CHEW PO PRN (15:00)
[2018-07-22] MEDS ORDERED: lisINopril 10 MG (PRINIVIL) TABLET PO ONE (18:45)
[2018-07-22] MEDS ORDERED: lisINopril 10 MG (PRINIVIL) TABLET ONE (18:47)
--- NOTE | 2018-07-22 18:58 | NUR ---
THIS RN CALLED AND SPOKE WITH DR GARSIA REGARDING PT BLOOD PRESSURE AND PT C/O SHORTNESS OF BREATH. PT ALSO STATES SHE IS HAVING SLIGHT CHEST DISCOMFORT. THIS RN UPDATED DR ON PT OUTPUT FOR THE DAY, CURRENT VITALS, EKG RESULTS AND LUNG SOUNDS. NEW ORDERS RECEIVED.
[2018-07-22] MEDS: FENOFIBRATE 134 MG (LOFIBRA) CAPSULE PO SCH (20:11)
[2018-07-22] MEDS: APIXABAN 5 MG (ELIQUIS) TABLET PO SCH (20:11)
[2018-07-22] MEDS: OMEGA 3 (FISH OIL) 1000 MG CAP PO SCH (20:11)
[2018-07-22] MEDS: ATORVASTATIN 40 MG (LIPITOR) TABLET PO SCH (20:11)
[2018-07-22] MEDS: GABAPENTIN 600 MG (NEURONTIN) TAB PO SCH (20:11)
[2018-07-22] MEDS: PRIMIDONE 50 MG TAB (MYSOLINE) PO SCH (20:12)
[2018-07-22] MEDS: MAGNESIUM OXIDE (MAG-OX)400 MG TAB PO SCH (20:12)
--- NOTE | 2018-07-22 20:38 | NUR ---
Patient continues to complain of shortness of breath and chest discomfort. Dr. Oh notified of patient continued complaint and recent lab results of d-dimer, BNP and troponin. Orders received.Will continue to monitor.
[2018-07-22] MEDS ORDERED: FUROSEMIDE 40 MG/4 ML INJ (LASIX) IVP ONE (20:45)
[2018-07-22] MEDS ORDERED: NON-FORMULARY MEDICATION 1 EA EA (Magnesium Oxide (Magnesium) 400 MG) PO SCH (21:00)
[2018-07-22] MEDS ORDERED: amLODIPine 5 MG (NORVASC) TAB PO ONE (22:15)
[2018-07-23] VITALS (24 sets, daily range): BP systolic 127–201; BP diastolic 54–112
[2018-07-23 03:35] LABS: HEMOGLOBIN 10.8 G/DL (11.5-16.0); MEAN PLATELET VOLUME 10.4 FL (7.4-10.4); RED CELL DISTRIBUTION WIDTH 13.9 % (10.0-14.5); WHITE BLOOD COUNT 7.2 10^3/uL (4.3-11.0)
[2018-07-23 03:53] LABS: CALCIUM 9.4 MG/DL (8.5-10.1); CREATININE SERUM 1.34 MG/DL (0.60-1.30); POTASSIUM 4.9 MMOL/L (3.6-5.0)
[2018-07-23] MEDS: NS IV 1000 ML 1,000 ML IV SCH ×3 (04:13→23:30)
[2018-07-23 06:10] LABS: MAGNESIUM 1.8 MG/DL (1.8-2.4); PHOSPHORUS 2.9 MG/DL (2.3-4.7)
--- NOTE | 2018-07-23 08:45 | NUR ---
DR MILLER IN ROOM TO REMOVE TEMP PACEMAKER.
--- NOTE | 2018-07-23 09:04 | Cardiology Progress Note ---
Subjective Date Seen by Provider: July 23, 2018 Time Seen by Provider: 09:01 Subjective/Events-last exam patient is laying down in bed, feeling better. Denies any chest pain or shortness of breath. Review of Systems General: No Chills, No Night Sweats, No Fatigue, No Malaise, No Appetite, No Other HEENT: No Head Aches, No Visual Changes, No Eye Pain, No Ear Pain, No Dysphasia , No Sinus Congestion, No Post Nasal Drip, No Sore Throat, No Other Pulmonary: No Dyspnea, No Cough, No Pleuritic Chest Pain, No Other Cardiovascular: No: Chest Pain, Palpitations, Orthopnea, Paroxysmal Noc. Dyspnea, Edema, Lt Headedness, Other Objective-Cardiology Exam Last Set of Vital Signs Vital Signs 07/23/18 07:47 Temp 98.7 Capillary Refill : Less Than 3 Seconds I&O Intake and Output 07/23/18 00:00 Intake Total 1720 ml Output Total 4820 ml Balance -3100 ml Intake Oral 720 ml IV Total 1000 ml Output Urine Total 4820 ml # Bowel Movements 2 General: Alert, Oriented X3, Cooperative HEENT: Atraumatic, PERRLA Neck: Supple, No JVD, No Thyromegaly Lungs: Clear to Auscultation, Normal Air Movement Heart: Regular Rate, Normal S1, Normal S2, No Murmurs Abdomen: Normal Bowel Sounds, Soft, No Tenderness, No Hepatosplenomegaly, No Masses Extremities: No Clubbing, No Cyanosis, No Edema, Normal Pulses, No Tenderness/ Swelling Skin: No Rashes, No Breakdown, No Significant Lesion Neuro: Normal Gait, Normal Speech, Strength at 5/5 X4 Ext, Normal Tone, Sensation Intact Psych/Mental Status: Mental Status NL, Mood NL Results Lab Laboratory Tests 07/23/18 03:14 A/P-Cardiology Admission Diagnosis Paroxysmal atrial fibrillation Sinus node dysfunction Hypertension Hyperlipidemia Assessment/Plan Paroxysmal atrial fibrillation, status post cardioversion done at [facility], back to sinus rhythm. Had bradycardia probably secondary to combination of underlying sinus node dysfunction and medication. Currently heart rate is better. Tolerating well. I will start low-dose amiodarone and monitor tolerance and response Sinus node dysfunction, severe bradycardia, probably exacerbated by medication. We discussed the management plan, might require pacemaker in the future, for now will consider loop recorder implant and monitor her tolerance and response. Coronary artery disease, history of stent placement 2 to the LAD. In August 2013 cardiac cath revealed patent stents to LAD, known to have Taxus 320 mm stent in the mid LAD, proximal to that there was a stent placed in 2011 which is 312 mm Ion stent. Both are patent with 40-50 percent in-stent restenosis. Secondary branch had 90 percent stenosis at the ostium. Small artery, not amendable to intervention. Another cardiac catheterization February 2015 showing patent stents in the proximal LAD with 50 percent stenosis beyond the stent and 50 percent stenosis at the midportion of the LAD small vessel disease distally, moderate 40-50 percent stenosis in the right coronary artery with multiple segment of the proximal, mid and distal portion. Cardiac catheterization done March 05, 2017 revealed severe LAD stenosis beyond the previously known stent 3.0. Successful primary stenting using 308 mm ALPINE expanded to 3.5 with excellent results, balloon for in-stent restenosis also was made. Most recent cardiac catheterization done March 09, 2018 revealed patent stent with small vessel disease, no intervention required. continue to monitor [id number] score of 4, yearly risk of stroke without oral anticoagulation is 4 percent. continue on Eliquis Hypertension, monitor blood pressure. No changes are recommended Renal arterial duplex done July 2015 revealed proximal right renal artery not evaluated, other segments of the left renal artery demonstrated no evidence of significant stenosis, continue to monitor Hyperlipidemia, Lipitor was increased recently. Continue to monitor Obstructive sleep apnea, using C Pap machine Nonobstructive carotid artery stenosis per carotid duplex done in February 2018 , continue to monitor. Diabetes mellitus-managed by primary care physician Chronic pain, followed and managed by primary care physician Obesity, BMI is 37, discussed diet and exercise for weight loss. Clinical Quality Measures DVT/VTE Risk/Contraindication: Risk Factor Score Per Nursin RFS Level Per Nursing on Admit: 4+=Very High BOOM MILLER MD July 23, 2018 09:04
--- NOTE | 2018-07-23 09:04 | Progress Note (SOAP) ---
Subjective Subjective/Events-last exam Patient resting comfortably this morning in bed. She is awaiting placement of pacemaker. She has not been obviously eating the same and she did have a few concerns about her diabetes. She was made aware of glucose 215 this morning. Review of Systems Date Seen by Provider: July 23, 2018 Time Seen by Provider: 06:50 Objective Exam Last Set of Vital Signs Vital Signs Date Time Temp Pulse Resp B/P (MAP) Pulse Ox O2 Delivery O2 Flow Rate FiO2 07/23/18 08:00 70 15 143/76 (98) 98 Nasal Cannula 2.00 07/23/18 07:47 98.7 Capillary Refill : Less Than 3 Seconds I&O Intake and Output 07/23/18 00:00 Intake Total 1720 ml Output Total 4820 ml Balance -3100 ml Intake Oral 720 ml IV Total 1000 ml Output Urine Total 4820 ml # Bowel Movements 2 General: No Acute Distress Lungs: Clear to Auscultation Heart: Regular Rate (With rate controlled and rate is at 73) Abdomen: Soft Results/Procedures Lab Laboratory Tests 07/22/18 18:55: D-Dimer 1.72H, Troponin I 0.052H, B-Type Natriuretic Peptide 711.3H 07/22/18 20:17: Glucometer 257H 07/22/18 21:26: Troponin I 0.068H 07/23/18 03:14: White Blood Count 7.2, Red Blood Count 4.12L, Hemoglobin 10.8L, Hematocrit 36, Mean Corpuscular Volume 86, Mean Corpuscular Hemoglobin 26, Mean Corpuscular Hemoglobin Concent 30L, Red Cell Distribution Width 13.9, Platelet Count 197, Mean Platelet Volume 10.4, Sodium Level 139, Potassium Level 4.9, Chloride Level 103, Carbon Dioxide Level 26, Anion Gap 10, Blood Urea Nitrogen 29H, Creatinine 1.34H, Estimat Glomerular Filtration Rate 40, BUN/Creatinine Ratio 22 , Glucose Level 215H, Calcium Level 9.4, Phosphorus Level 2.9, Magnesium Level 1.8 Radiology CXR 07/21- no acute process Assessment/Plan Assessment/Plan (1) Hypotension Status: Resolved Assessment & Plan: Secondary to bradycardia, required levophed initially. 07/23 -Currently stable blood pressure Qualifiers: Qualified Codes: I95.2 - Hypotension due to drugs (2) Bradycardia Status: Acute Assessment & Plan: Severe with unstable BP on arrival, now s/p temporary pacemaker and off of levophed. Management per Cardiology. 07/23 -Her pulse rate is currently at 73 -Cardiology also following and will determine whether she needs permanent pacemaker after medications previously given to control her rate have "washed out" (3) Cardiogenic shock Status: Resolved (4) Atrial fibrillation Status: Acute Assessment & Plan: Cardiology consulted, appreciate recommendations. Qualifiers: Qualified Codes: I48.91 - Unspecified atrial fibrillation (5) Hyperkalemia Status: Acute Assessment & Plan: Secondary to acute renal insufficiency, improving, monitor. (6) Elevated AST (SGOT) Status: Acute Assessment & Plan: Mild, recheck in am. (7) Hyperphosphatemia Status: Acute Assessment & Plan: Anticipate improvement with kidney improvement, recheck in am. (8) Acute renal insufficiency Status: Acute Assessment & Plan: Improving, likely secondary to hypotension which is now resolved, monitor. (9) Diabetes mellitus, type 2 Status: Chronic Assessment & Plan: Diabetic diet, sliding scale insulin 07/23 -She does have Levemir 25 units twice daily scheduled. -Will continue to monitor her glucose and adjust as necessary. (10) CKD (chronic kidney disease) Status: Chronic (11) GERD (gastroesophageal reflux disease) Status: Chronic (12) HLD (hyperlipidemia) Status: Chronic (13) DVT prophylaxis Status: Acute Assessment & Plan: On therapeutic apixaban. Clinical Quality Measures DVT/VTE Risk/Contraindication: Risk Factor Score Per Nursin RFS Level Per Nursing on Admit: 4+=Very High MURALI MEIER MD July 23, 2018 09:04
[2018-07-23] MEDS: ASPIRIN E.C. 81 MG (ECOTRIN) TAB PO SCH (09:19)
[2018-07-23] MEDS: PANTOPRAZOLE 40 MG (PROTONIX) TAB PO SCH (09:20)
[2018-07-23] MEDS: GABAPENTIN 600 MG (NEURONTIN) TAB PO SCH ×3 (09:20→21:21)
[2018-07-23] MEDS: AMIODARONE 200 MG (CORDARONE) TAB PO SCH ×2 (09:20→21:20)
[2018-07-23] MEDS: MULTIVIT W/MINERALS TAB (THERAGRAN M) PO SCH (09:20)
[2018-07-23] MEDS: APIXABAN 5 MG (ELIQUIS) TABLET PO SCH ×2 (09:20→21:21)
[2018-07-23] MEDS: FUROSEMIDE 40 MG (LASIX) TAB PO SCH (09:20)
--- NOTE | 2018-07-23 15:15 | NUR ---
REPORT GIVEN TO MAXIMO VIVAR WHO ASSUMES CARE OF PT. NO QUESTIONS/CONCERNS VOICED.
[2018-07-23] MEDS: OMEGA 3 (FISH OIL) 1000 MG CAP PO SCH (21:20)
[2018-07-23] MEDS: ATORVASTATIN 40 MG (LIPITOR) TABLET PO SCH (21:20)
[2018-07-23] MEDS: PRIMIDONE 50 MG TAB (MYSOLINE) PO SCH (21:21)
[2018-07-23] MEDS: FENOFIBRATE 134 MG (LOFIBRA) CAPSULE PO SCH (21:21)
[2018-07-23] MEDS: MAGNESIUM OXIDE (MAG-OX)400 MG TAB PO SCH (21:21)
[2018-07-24] VITALS (8 sets, daily range): BP systolic 142–193; BP diastolic 57–108
[2018-07-24 03:50] LABS: BASOPHILS % (AUTO) 0 % (0-10); EOSINOPHILS # (AUTO) 0.2 10^3/uL (0.0-0.3); EOSINOPHILS % (AUTO) 2 % (0-10); HEMATOCRIT 36 % (35-52); HEMOGLOBIN 10.9 G/DL (11.5-16.0); LYMPHOCYTES # (AUTO) 1.7 X 10^3 (1.0-4.0); LYMPHOCYTES % (AUTO) 23 % (12-44); MEAN CORPUSCULAR HEMOGLOBIN 26 PG (25-34); MEAN CORPUSCULAR HGB CONC 31 G/DL (32-36); MEAN CORPUSCULAR VOLUME 86 FL (80-99); MEAN PLATELET VOLUME 10.6 FL (7.4-10.4); MONOCYTES # (AUTO) 0.5 X 10^3 (0.0-1.0); MONOCYTES % (AUTO) 7 % (0-12); NEUTROPHILS # (AUTO) 4.9 X 10^3 (1.8-7.8); NEUTROPHILS % (AUTO) 68 % (42-75); PLATELET COUNT 197 10^3/uL (130-400); WHITE BLOOD COUNT 7.3 10^3/uL (4.3-11.0)
[2018-07-24 04:07] LABS: CALCIUM 9.3 MG/DL (8.5-10.1); CREATININE SERUM 1.18 MG/DL (0.60-1.30); MAGNESIUM 1.5 MG/DL (1.8-2.4); PHOSPHORUS 2.5 MG/DL (2.3-4.7); POTASSIUM 4.6 MMOL/L (3.6-5.0)
[2018-07-24 04:09] LABS: CHOLESTEROL 143 MG/DL (< 200); HDL CHOLESTEROL 31 MG/DL (40-60); TRIGLYCERIDES 126 MG/DL (<150); VLDL CHOLESTEROL 25 MG/DL (5-40)
[2018-07-24] MEDS: MAGNESIUM 1 GM/100 ML IVPB 100 ML IV SCH ×2 (05:14→06:14)
[2018-07-24] MEDS ORDERED: KCL 20 MEQ TAB (K-DUR) PO SCH (06:00)
[2018-07-24] MEDS ORDERED: MAGNESIUM 1 GM/100 ML IVPB 100 ML IV SCH (06:00)
[2018-07-24] MEDS ORDERED: POTASSIUM CL 10MEQ/50ML IVPB 50 ML IV SCH (06:00)
[2018-07-24] MEDS: APIXABAN 5 MG (ELIQUIS) TABLET PO SCH (07:30)
[2018-07-24] MEDS: GABAPENTIN 600 MG (NEURONTIN) TAB PO SCH ×2 (07:30→12:24)
[2018-07-24] MEDS: MULTIVIT W/MINERALS TAB (THERAGRAN M) PO SCH (07:31)
[2018-07-24] MEDS: AMIODARONE 200 MG (CORDARONE) TAB PO SCH (07:31)
[2018-07-24] MEDS: PANTOPRAZOLE 40 MG (PROTONIX) TAB PO SCH (07:31)
[2018-07-24] MEDS: ASPIRIN E.C. 81 MG (ECOTRIN) TAB PO SCH (07:31)
[2018-07-24] MEDS: FUROSEMIDE 40 MG (LASIX) TAB PO SCH (07:31)
[2018-07-24] MEDS: NS IV 1000 ML 1,000 ML IV SCH (07:33)
[2018-07-24] MEDS ORDERED: LIDOCAINE 1% INJ 20 ML 20 ML VIAL ONE (07:52)
--- NOTE | 2018-07-24 07:55 | Cardiology Progress Note ---
Subjective Date Seen by Provider: July 24, 2018 Time Seen by Provider: 07:54 Subjective/Events-last exam patient is sitting up in bed, eating breakfast, heart rate is in the 80s. Denied any chest pain, denied any palpitation. Review of Systems General: No Chills, No Night Sweats, No Fatigue, No Malaise, No Appetite, No Other HEENT: No Head Aches, No Visual Changes, No Eye Pain, No Ear Pain, No Dysphasia , No Sinus Congestion, No Post Nasal Drip, No Sore Throat, No Other Pulmonary: Dyspnea; No Cough, No Pleuritic Chest Pain, No Other Cardiovascular: No: Chest Pain, Palpitations, Orthopnea, Paroxysmal Noc. Dyspnea, Edema, Lt Headedness, Other Objective-Cardiology Exam Last Set of Vital Signs Vital Signs 07/24/18 07/24/18 07:22 07:35 Temp 97.0 O2 Delivery Nasal Cannula O2 Flow Rate 2.00 Capillary Refill : Less Than 3 Seconds I&O Intake and Output 07/24/18 00:00 Intake Total 3840 ml Output Total 4650 ml Balance -810 ml Intake Oral 1840 ml IV Total 2000 ml Output Urine Total 4650 ml # Voids 5 General: Alert, Oriented X3, Cooperative HEENT: Atraumatic, PERRLA Neck: Supple, No JVD, No Thyromegaly Lungs: Clear to Auscultation, Normal Air Movement Heart: Regular Rate, Normal S1, Normal S2, No Murmurs Abdomen: Normal Bowel Sounds, Soft, No Tenderness, No Hepatosplenomegaly, No Masses Extremities: No Clubbing, No Cyanosis, No Edema, Normal Pulses, No Tenderness/ Swelling Skin: No Rashes, No Breakdown, No Significant Lesion Neuro: Normal Gait, Normal Speech, Strength at 5/5 X4 Ext, Normal Tone, Sensation Intact Psych/Mental Status: Mental Status NL, Mood NL Results Lab Laboratory Tests 07/24/18 03:00 A/P-Cardiology Admission Diagnosis Paroxysmal atrial fibrillation Sinus node dysfunction Hypertension Hyperlipidemia Assessment/Plan Paroxysmal atrial fibrillation, status post cardioversion done at [facility], back to sinus rhythm. Had bradycardia probably secondary to combination of underlying sinus node dysfunction and medication. Currently heart rate is in the 80s, started on amiodarone 200 mg daily. Will proceed with implantation of loop recorder and discharge Sinus node dysfunction, severe bradycardia, probably exacerbated by medication. We discussed the management plan, might require pacemaker in the future, will proceed with implantation of loop recorder Coronary artery disease, history of stent placement 2 to the LAD. In August 2013 cardiac cath revealed patent stents to LAD, known to have Taxus 320 mm stent in the mid LAD, proximal to that there was a stent placed in 2011 which is 312 mm Ion stent. Both are patent with 40-50 percent in-stent restenosis. Secondary branch had 90 percent stenosis at the ostium. Small artery, not amendable to intervention. Another cardiac catheterization February 2015 showing patent stents in the proximal LAD with 50 percent stenosis beyond the stent and 50 percent stenosis at the midportion of the LAD small vessel disease distally, moderate 40-50 percent stenosis in the right coronary artery with multiple segment of the proximal, mid and distal portion. Cardiac catheterization done March 05, 2017 revealed severe LAD stenosis beyond the previously known stent 3.0. Successful primary stenting using 308 mm ALPINE expanded to 3.5 with excellent results, balloon for in-stent restenosis also was made. Most recent cardiac catheterization done March 09, 2018 revealed patent stent with small vessel disease, no intervention required. continue to monitor [id number] score of 4, yearly risk of stroke without oral anticoagulation is 4 percent. continue on Eliquis Hypertension, monitor blood pressure. No changes are recommended Renal arterial duplex done July 2015 revealed proximal right renal artery not evaluated, other segments of the left renal artery demonstrated no evidence of significant stenosis, continue to monitor Hyperlipidemia, Lipitor was increased recently. Continue to monitor Obstructive sleep apnea, using C Pap machine Nonobstructive carotid artery stenosis per carotid duplex done in February 2018 , continue to monitor. Diabetes mellitus-managed by primary care physician Chronic pain, followed and managed by primary care physician Obesity, BMI is 37, discussed diet and exercise for weight loss. Clinical Quality Measures DVT/VTE Risk/Contraindication: Risk Factor Score Per Nursin RFS Level Per Nursing on Admit: 4+=Very High BOOM MILLER MD July 24, 2018 07:55
--- NOTE | 2018-07-24 08:42 | NUR ---
DR MILLER AT BEDSIDE W/ ALESSANDRA VIVAR FOR INSERTION OF LOOP RECORDER.
--- NOTE | 2018-07-24 08:45 | Progress Note (SOAP) ---
Subjective Subjective/Events-last exam Patient was sleeping upon entry her of room this morning. After awakening she did not have any shortness of breath or chest discomfort. She voices no new current concerns. She is tolerating the amiodarone. Review of Systems Date Seen by Provider: July 24, 2018 Time Seen by Provider: 07:00 Objective Exam Last Set of Vital Signs Vital Signs Date Time Temp Pulse Resp B/P (MAP) Pulse Ox O2 Delivery O2 Flow Rate FiO2 07/24/18 08:00 80 15 97 Nasal Cannula 2.00 07/24/18 07:22 97.0 Capillary Refill : Less Than 3 Seconds I&O Intake and Output 07/24/18 00:00 Intake Total 3840 ml Output Total 4650 ml Balance -810 ml Intake Oral 1840 ml IV Total 2000 ml Output Urine Total 4650 ml # Voids 5 General: No Acute Distress Lungs: Clear to Auscultation Heart: Regular Rate (With grade 1/6 systolic murmur heard best at the left upper sternal border) Abdomen: Soft Skin: No Rashes Results/Procedures Lab Laboratory Tests 07/23/18 21:20: Glucometer 267H 07/24/18 03:00: White Blood Count 7.3, Red Blood Count 4.15L, Hemoglobin 10.9L, Hematocrit 36, Mean Corpuscular Volume 86, Mean Corpuscular Hemoglobin 26, Mean Corpuscular Hemoglobin Concent 31L, Red Cell Distribution Width 14.0, Platelet Count 197, Mean Platelet Volume 10.6H, Neutrophils (%) (Auto) 68, Lymphocytes (%) (Auto) 23 , Monocytes (%) (Auto) 7, Eosinophils (%) (Auto) 2, Basophils (%) (Auto) 0, Neutrophils # (Auto) 4.9, Lymphocytes # (Auto) 1.7, Monocytes # (Auto) 0.5, Eosinophils # (Auto) 0.2, Basophils # (Auto) 0.0, Sodium Level 136, Potassium Level 4.6, Chloride Level 99, Carbon Dioxide Level 28, Anion Gap 9, Blood Urea Nitrogen 23H, Creatinine 1.18, Estimat Glomerular Filtration Rate 47, BUN/ Creatinine Ratio 19, Glucose Level 202H, Calcium Level 9.3, Phosphorus Level 2.5 , Magnesium Level 1.5L, Triglycerides Level 126, Cholesterol Level 143, LDL Cholesterol Direct 94, VLDL Cholesterol 25, HDL Cholesterol 31L Radiology CXR 07/21- no acute process Assessment/Plan Assessment/Plan (1) Hypotension Status: Resolved Assessment & Plan: Secondary to bradycardia, required levophed initially. 07/23 -Currently stable blood pressure Qualifiers: Qualified Codes: I95.2 - Hypotension due to drugs (2) Bradycardia Status: Acute Assessment & Plan: Severe with unstable BP on arrival, now s/p temporary pacemaker and off of levophed. Management per Cardiology. 07/23 -Her pulse rate is currently at 73 -Cardiology also following and will determine whether she needs permanent pacemaker after medications previously given to control her rate have "washed out" 07/24 -She is no longer with bradycardia. An event monitor is scheduled to be placed and most likely dismissal at that point. She did not need pacemaker at this time. (3) Cardiogenic shock Status: Resolved (4) Atrial fibrillation Status: Acute Assessment & Plan: Cardiology consulted, appreciate recommendations. Qualifiers: Qualified Codes: I48.91 - Unspecified atrial fibrillation (5) Hyperkalemia Status: Acute Assessment & Plan: Secondary to acute renal insufficiency, improving, monitor. (6) Elevated AST (SGOT) Status: Acute Assessment & Plan: Mild, recheck in am. (7) Hyperphosphatemia Status: Acute Assessment & Plan: Anticipate improvement with kidney improvement, recheck in am. (8) Acute renal insufficiency Status: Acute Assessment & Plan: Improving, likely secondary to hypotension which is now resolved, monitor. (9) Diabetes mellitus, type 2 Status: Chronic Assessment & Plan: Diabetic diet, sliding scale insulin 07/23 -She does have Levemir 25 units twice daily scheduled. -Will continue to monitor her glucose and adjust as necessary. 07/24 -Today we spoke about her insulin usage in the hospital versus at home. She will get with Dr. Cabral outpatient and most likely get this finding to him. For now she will stay on 25 units of Levemir twice daily area she also uses sliding scale at home in addition to a baseline NovoLog. (10) CKD (chronic kidney disease) Status: Chronic (11) GERD (gastroesophageal reflux disease) Status: Chronic (12) HLD (hyperlipidemia) Status: Chronic (13) DVT prophylaxis Status: Acute Assessment & Plan: On therapeutic apixaban. Clinical Quality Measures DVT/VTE Risk/Contraindication: Risk Factor Score Per Nursin RFS Level Per Nursing on Admit: 4+=Very High MURALI MEIER MD July 24, 2018 08:45
--- NOTE | 2018-07-24 08:49 | Implantation of Loop Monitor ---
Implant of Loop Monitior IMPLANTATION OF LOOP MONITOR REPORT DATE OF PROCEDURE: 07/24/18 PREOP DIAGNOSIS: sinus node dysfunction, paroxysmal atrial fibrillation POSTOP DIAGNOSIS: sinus node dysfunction, paroxysmal atrial fibrillation PROCEDURE DETAILS: The patient is a 62 female with history of paroxysmal atrial fibrillation requiring long-term surveillance. Therefore implantable loop recorder was discussed and agreed with the patient. Informed consent was taken. All risks and complications were discussed at length. The patient was draped and prepped in the usual sterile fashion. Local anesthesia was lidocaine, which was given in the substernal area close to the 4th intercostal space. Loop monitor [employer] with serial number [id number] was implanted according to the protocol. Steri-Strips were placed at the end of the procedure. There were no complications and the patient tolerated the procedure well. The device was interrogated with a voltage of. ANESTHESIA: Local anesthesia with lidocaine. COMPLICATIONS: None CONTRAST/FLUOROSCOPY: None CONCLUSION: successful loop recorder implantation with no complication BOOM MILLER MD July 24, 2018 08:49
--- NOTE | 2018-07-24 08:53 | Cardiology Discharge Summary ---
Diagnosis/Chief Complaint Date of Admission July 21, 2018 at 20:40 Date of Discharge July 24, 2018 Admission Diagnosis Paroxysmal atrial fibrillation Sinus node dysfunction Hypertension Hyperlipidemia Discharge Diagnosis paroxysmal atrial fibrillation Sinus node dysfunction Coronary artery disease Hypertension Hyperlipidemia Chief Complaint/HPI Chief Complaint/HPI 62 years old lady with history of coronary artery disease had paroxysmal atrial fibrillation, underwent electrical cardioversion at [facility] and discharged home, came into the emergency room with near syncope, severe bradycardia required immediate temporary pacemaker placement. Heart rate has improved after stopping the medication. We were considering the placement of a dual-chamber pacemaker, due to the fact that her heart rate is better I decided to discharge her home and implanted a loop recorder to monitor her. She is currently feeling better. Discharge Summary Hospital Course Was the Problem List Reviewed?: Yes Hospital Course Paroxysmal atrial fibrillation, status post cardioversion done at [facility], back to sinus rhythm. Had bradycardia probably secondary to combination of underlying sinus node dysfunction and medication. Currently heart rate is in the 80s, started on amiodarone 200 mg daily. Will proceed with implantation of loop recorder and discharge Sinus node dysfunction, severe bradycardia, probably exacerbated by medication. We discussed the management plan, might require pacemaker in the future, will proceed with implantation of loop recorder Coronary artery disease, history of stent placement 2 to the LAD. In August 2013 cardiac cath revealed patent stents to LAD, known to have Taxus 320 mm stent in the mid LAD, proximal to that there was a stent placed in 2011 which is 312 mm Ion stent. Both are patent with 40-50 percent in-stent restenosis. Secondary branch had 90 percent stenosis at the ostium. Small artery, not amendable to intervention. Another cardiac catheterization February 2015 showing patent stents in the proximal LAD with 50 percent stenosis beyond the stent and 50 percent stenosis at the midportion of the LAD small vessel disease distally, moderate 40-50 percent stenosis in the right coronary artery with multiple segment of the proximal, mid and distal portion. Cardiac catheterization done March 05, 2017 revealed severe LAD stenosis beyond the previously known stent 3.0. Successful primary stenting using 308 mm ALPINE expanded to 3.5 with excellent results, balloon for in-stent restenosis also was made. Most recent cardiac catheterization done March 09, 2018 revealed patent stent with small vessel disease, no intervention required. continue to monitor [id number] score of 4, yearly risk of stroke without oral anticoagulation is 4 percent. continue on Eliquis Hypertension, monitor blood pressure. No changes are recommended Renal arterial duplex done July 2015 revealed proximal right renal artery not evaluated, other segments of the left renal artery demonstrated no evidence of significant stenosis, continue to monitor Hyperlipidemia, Lipitor was increased recently. Continue to monitor Obstructive sleep apnea, using C Pap machine Nonobstructive carotid artery stenosis per carotid duplex done in February 2018 , continue to monitor. Diabetes mellitus-managed by primary care physician Chronic pain, followed and managed by primary care physician Obesity, BMI is 37, discussed diet and exercise for weight loss. Labs Laboratory Tests 07/21/18 18:34: White Blood Count 12.6H, Mean Corpuscular Hemoglobin Concent 29L, Mean Platelet Volume 10.9H, Neutrophils # (Auto) 8.5H, Prothrombin Time 14.8H, Potassium Level 5.6H, Blood Urea Nitrogen 51H, Creatinine 2.42H, Aspartate Amino Transf ( AST/SGOT) 72H, Troponin T 46H 07/21/18 22:01: 07/22/18 03:30: Mean Corpuscular Hemoglobin Concent 31L, Mean Platelet Volume 10.8H, Potassium Level 5.2H, Blood Urea Nitrogen 54H, Creatinine 2.01H, Red Blood Count 4.03L, Hemoglobin 10.7L, Chloride Level 108H, Carbon Dioxide Level 20L, Glucose Level 49*L, Phosphorus Level 5.1H 07/22/18 04:59: Glucometer 149H 07/22/18 18:55: D-Dimer 1.72H, Troponin I 0.052H, B-Type Natriuretic Peptide 711.3H 07/22/18 20:17: Glucometer 257H 07/22/18 21:26: Troponin I 0.068H 07/23/18 03:14: Red Blood Count 4.12L, Hemoglobin 10.8L, Mean Corpuscular Hemoglobin Concent 30L , Blood Urea Nitrogen 29H, Creatinine 1.34H, Glucose Level 215H 07/23/18 21:20: Glucometer 267H 07/24/18 03:00: Red Blood Count 4.15L, Hemoglobin 10.9L, Mean Corpuscular Hemoglobin Concent 31L , Mean Platelet Volume 10.6H, Blood Urea Nitrogen 23H, Glucose Level 202H, Magnesium Level 1.5L, HDL Cholesterol 31L Procedures None. Discharge Physical Examination Allergies: Coded Allergies: morphine (Verified Adverse Reaction, Severe, hallucination, 07/12/18) Vitals & I&Os Vital Signs Date Time Temp Pulse Resp B/P (MAP) Pulse Ox O2 Delivery O2 Flow Rate FiO2 07/24/18 08:00 80 15 97 Nasal Cannula 2.00 07/24/18 07:22 97.0 General Appearance: Alert, Oriented X3, Cooperative, No Acute Distress HEENT: Atraumatic, PERRLA Respiratory: Clear to Auscultation, Normal Air Movement Cardiovascular: Regular Rate, Normal S1, Normal S2, No Murmurs Abdominal: Normal Bowel Sounds, Soft, No Tenderness, No Hepatosplenomegaly, No Masses Extremities: No Clubbing, No Cyanosis, No Edema, Normal Pulses, No Tenderness/ Swelling Skin: No Rashes, No Breakdown, No Significant Lesion Neuro: Normal Gait, Normal Speech, Strength at 5/5 X4 Ext, Normal Tone, Sensation Intact, Cranial Nerves 3-12 NL, Reflexes 2+ Psych/Mental Status: Mental Status NL, Mood NL Discharge Home Medications Reviewed and agree with Discharge Medication list on patient's Discharge Instruction sheet Instructions to Patient/Family Please see electronic discharge instructions given to patient. Clinical Quality Measures Admission Status Admission Status: Inpatient Order (span 2 midnights) Reason for Inpatient Admission: paroxysmal atrial fibrillation and sinus node dysfunction with severe bradycardia requiring temporary pacemaker placement DVT/VTE Risk/Contraindication: Risk Factor Score Per Nursin RFS Level Per Nursing on Admit: 4+=Very High BOOM MILLER MD July 24, 2018 08:53
--- NOTE | 2018-07-24 09:35 | Diagnostic Imaging Report ---
INDICATION: Atrial fibrillation. TECHNIQUE: Frontal view of the chest. COMPARISON: 07/21/2018 FINDINGS: There is cardiomegaly and low lung volumes. No focal consolidation is seen. There is no pleural effusion or pneumothorax. Fusion hardware is noted in the cervical spine. IMPRESSION: 1. Low lung volumes with stable cardiomegaly. No new consolidation is seen. Dictated by: Dictated on workstation # [id number]
--- NOTE | 2018-07-24 14:57 | NUR ---
NEELIMA CRAIN Leni demonstrates understanding of discharge instructions and accurately returns instructions upon questioning. Copy of Post-Discharge Instructions and Medication Discharge Instructions given to PT. NEELIMA CRAIN is able to manage continuing needs after discharge. Patients belongings returned to PT. Skin dry and intact; no breakdown noted. Patient discharged from [facility] on 07/24/18 at 1457. NEELIMA CRAIN left floor via WC, accompanied by STAFF/FAMILY.
[2018-07-25] MEDS ORDERED: AMIODARONE 200 MG (CORDARONE) TAB PO SCH (09:00)
== END 2018-07-24 14:57 | disposition home or self-care (01) | DRG 260 ==
LOC: EDUNIT# 18:04 → ER FS 18:05 → CATH 19:50 → ICU 20:40
PROVIDERS: ADMIT Internal Medicine Interventional Cardiology; ATTEND Internal Medicine Interventional Cardiology
PROC: 5A1223Z Performance of Cardiac Pacing, Continuous (ICD-10-PCS; principal; 2018-07-21)
PROC: 0JH632Z Insertion of Monitoring Device into Chest Subcutaneous Tissue and Fascia, Percutaneous Approach (ICD-10-PCS; 2018-07-24)
DX: I49.5 Sick sinus syndrome (principal); R57.0 Cardiogenic shock; I48.0 Paroxysmal atrial fibrillation; I95.2 Hypotension due to drugs; I25.10 Atherosclerotic heart disease of native coronary artery without angina pectoris; F41.9 Anxiety disorder, unspecified; E66.9 Obesity, unspecified; N28.9 Disorder of kidney and ureter, unspecified; I12.9 Hypertensive chronic kidney disease with stage 1 through stage 4 chronic kidney disease, or unspecified chronic kidney disease; N18.9 Chronic kidney disease, unspecified; E78.00 Pure hypercholesterolemia, unspecified; K21.9 Gastro-esophageal reflux disease without esophagitis; M54.9 Dorsalgia, unspecified; E11.9 Type 2 diabetes mellitus without complications; E83.39 Other disorders of phosphorus metabolism; E87.5 Hyperkalemia; E78.5 Hyperlipidemia, unspecified; T82.855D Stenosis of coronary artery stent, subsequent encounter; G47.33 Obstructive sleep apnea (adult) (pediatric); G89.29 Other chronic pain; Z95.5 Presence of coronary angioplasty implant and graft; Z79.01 Long term (current) use of anticoagulants; Z87.891 Personal history of nicotine dependence; Z87.19 Personal history of other diseases of the digestive system; Z68.38 Body mass index [BMI] 38.0-38.9, adult; Z79.4 Long term (current) use of insulin
CPT/HCPCS: 33210; 33285; 36415; 51702; 71045; 80048; 80053; 80061; 82962; 83735; 83880; 84100; 84484; 85007; 85025; 85027; 85379; 85610; 93005; 93306; 96361; 96365; 96375

== ENCOUNTER 2019-01-09 17:10 | Inpatient (IN) | payer MEDICARE, OTHER ==
[~2019-01-09] VITALS: Ht 150 cm; Wt 100.1 kg
[2019-01-09] VITALS (7 sets, daily range): BP systolic 132–190; BP diastolic 63–99
[~2019-01-09 17:10] MED LIST changes: +AMIO200T4 PO; +APIX5TAB PO; +DILT240C87 PO; +DOXY100C PO; +METF500T8 PO; +PRIM50TA33 PO; +SENN-162 PO; +[UNRECOGNIZED DRUG - OTHER] PO
--- NOTE | 2019-01-09 17:47 | ED Respiratory ---
General Chief Complaint: Respiratory Problems Stated Complaint: SOB, CHEST PAIN, FEVER Nursing Triage Note: PT TO RM 8 BY WHEELCHAIR WITH COMAPLINT OF SOA, COUGH, FEVER THAT STARTED TWO DAYS AGO. PT ON HOME O2 @ 4LNC. STATES SHE DOES NOT WEAR O2 ALL THE TIME. History of Present Illness Date Seen by Provider: Jan 09, 2019 Time Seen by Provider: 17:20 Initial Comments Patient presents to the ER with 48 hours worth shortness of breath. On arrival patient was wearing 4 L of oxygen by portable oxygen canister, patient's initial oxygen saturation was in the 70s patient reports not having to wear oxygen for several months. Patient reports having fever and cough over the past 48 hours. Patient reports having chest pain when she does not wear oxygen. Patient was put the patient on Vapotherm upon patient arrival, per RT. Patient denied chest pain after that. 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 Has Link in place. She is followed by Dr. West. She is on Xarelto and ASA 81 mg. Timing/Duration: yesterday, getting worse Severity: moderate Modifying Factors: Worse With Activity, Worse With Coughing, Worse With Lying Down; Improves With Oxygen, Improves With Rest Associated Symptoms: chest pain/soreness, cough, fever/chills, shortness of breath, wheezing Allergies and Home Medications Allergies Coded Allergies: morphine (Verified Adverse Reaction, Severe, hallucination, 07/12/18) Home Medications Amiodarone HCl 200 Mg Tablet, 200 MG PO DAILY, (Reported) Apixaban 5 Mg Tablet, 5 MG PO BID, (Reported) Aspirin 81 Mg Tablet.dr, 81 MG PO DAILY, (Reported) Atorvastatin Calcium 40 Mg Tablet, 40 MG PO HS, (Reported) Cinnamon Bark 500 Mg Capsule, 500 MG PO BID, (Reported) Cyclobenzaprine HCl 10 Mg Tablet, 20 MG PO TID PRN for MUSCLE SPASMS, (Reported) LAST FILLED #180 05-08-18 Fenofibrate,Micronized 134 Mg Capsule, 134 MG PO HS, (Reported) Furosemide 40 Mg Tablet, 40 MG PO DAILY, (Reported) Gabapentin 600 Mg Tablet, 600 MG PO TID, (Reported) Hydrocodone/Acetaminophen 1 Each Tablet, 1 TAB PO TID PRN for PAIN-MODERATE, (Reported) Insulin Aspart 300 Units/3 Ml Solution, SQ AC, (Reported) USES 1 UNIT FOR EVERY 2 POINTS OVER 100 BS Insulin Determir 1,000 Units/10 Ml Soln, 50 UNITS SQ BID, (Reported) Isosorbide Mononitrate 60 Mg Tab, 60 MG PO DAILY, (Reported) LAST FILLED #90 04-24-18 Lisinopril 20 Mg Tablet, 20 MG PO DAILY, (Reported) Magnesium Oxide 400 Mg Tablet, 400 MG PO HS, (Reported) Multivitamin-Min/Iron/FA/Vit K 1 Each Tablet, 1 TAB PO DAILY, (Reported) Seco-3/Dha/Epa/Fish Oil 1 Each Capsule, 1,000 MG PO HS, (Reported) Pantoprazole Sodium 40 Mg Tablet.dr, 40 MG PO DAILY, (Reported) Potassium Gluconate 99 Mg Tablet, 99 MG PO DAILY, (Reported) Primidone 50 Mg Tablet, 50 MG PO HS, (Reported) Sennosides/Docusate Sodium 1 Each Tablet, 1 TAB PO DAILY PRN for CONSTIPATION- 6TH LINE, (Reported) [[id number]] , 1 CAP PO Fr, (Reported) COMPOUNDED AT [facility] [employer] (DRIED VEGG[employer] IN PROPIETARY BLEND OF PANCREATIN, KIDNEY, PROTEASE, PAPAYA, PINEAPPLE, ACIDOLPHILLUS, ASTHWAGANDHA, BAIA, CARBOZYMES. Patient Home Medication List Home Medication List Reviewed: Yes Review of Systems Review of Systems Constitutional: chills, fever (per patient report patient is afebrile on arrival to emergency department) EENTM: see HPI Respiratory: cough, dyspnea on exertion, short of breath, wheezing Cardiovascular: chest pain (intermittent chest pain resolved with oxygen), Hx of Intervention Gastrointestinal: no symptoms reported Genitourinary: no symptoms reported Musculoskeletal: no symptoms reported Skin: no symptoms reported Psychiatric/Neurological: No Symptoms Reported Hematologic/Lymphatic: No Symptoms Reported Immunological/Allergic: no symptoms reported All Other Systems Reviewed Negative Unless Noted: Yes Past Mhhbifj-Voezsq-Egpozv Hx Past Med/Social Hx: Reviewed Nursing Past Med/Soc Hx Patient Social History Alcohol Use: Denies Use Recreational Drug Use: No Smoking Status: Former Smoker Type Used: Cigarettes Former Smoker, Quit: Mar 24, 1997 2nd Hand Smoke Exposure: No Recent Foreign Travel: No Contact w/Someone Who Travel: No Recent Infectious Disease Expo: No Recent Hopitalizations: No Physical Abuse: No Sexual Abuse: No Mistreated: No Fear: No Immunizations Up To Date Tetanus Booster (TDap): Unknown PED Vaccines UTD: Yes Date of Pneumonia Vaccine: Mar 05, 2013 Date of Influenza Vaccine: Dec 11, 2014 Seasonal Allergies Seasonal Allergies: No Past Medical History Surgeries: Yes (neck and back surgeries) Coronary Stent, Gallbladder, Orthopedic Respiratory: No Cardiac: Yes (stents) Atrial Fibrillation, Coronary Artery Disease, High Cholesterol, Hypertension Neurological: No Reproductive Disorders: No Genitourinary: No Gastrointestinal: No Gastroesophageal Reflux, Pancreatitis Musculoskeletal: Yes Chronic Back Pain Endocrine: Yes Diabetes, Insulin dep, Diabetes, Non-Insulin dep HEENT: No Hearing Impairment: Denies Cancer: No Psychosocial: No Integumentary: No Blood Disorders: No Family Medical History No Pertinent Family Hx Physical Exam Vital Signs - First Documented 01/09/19 01/09/19 17:10 17:28 Temp 36.4 Pulse 103 Resp 20 B/P (MAP) 174/89 (117) Pulse Ox 98 O2 Delivery OxyMask O2 Flow Rate 8.00 FiO2 100 Capillary Refill : Less Than 3 Seconds Height: 5'4.00" Weight: 219lbs. 1.0oz. [id number]; 44.00 BMI Method:Stated General Appearance: WD/WN, moderate distress (Improved with Vapotherm) Eyes: Bilateral Eye Normal Inspection, Bilateral Eye PERRL HEENT: PERRL/EOMI, normal ENT inspection, TMs normal, pharynx normal Neck: non-tender, full range of motion, supple, normal inspection Respiratory: chest non-tender, decreased breath sounds, crackles, wheezing, expiration Cardiovascular: normal peripheral pulses, regular rate, rhythm, no edema, no JVD, no murmur Gastrointestinal: normal bowel sounds, non tender, soft Extremities: normal range of motion, non-tender Neurologic/Psychiatric: no motor/sensory deficits, alert, normal mood/affect, oriented x 3 Skin: normal color, warm/dry Lymphatic: no adenopathy Focused Exam Lactate Level 01/09/19 17:20: Lactic Acid Level 0.91 Lactic Acid Level Laboratory Tests Test 01/09/19 17:20 Lactic Acid Level 0.91 MMOL/L (0.50-2.00) Progress/Results/Core Measures Suspected Sepsis Recent Fever Within 48 Hours: No Infection Criteria Present: None New/Unexplained Altered Menta: No Sepsis Screen: No Definite Risk SIRS Temperature: Pulse: 103 Respiratory Rate: 20 Laboratory Tests 01/09/19 17:20: White Blood Count 10.6 Blood Pressure 174 /89 Mean: 117 01/09/19 17:20: Lactic Acid Level 0.91 Laboratory Tests 01/09/19 17:20: Creatinine 1.78H, INR Comment 1.6H, Platelet Count 135, Total Bilirubin 1.1H Results/Orders Lab Results Laboratory Tests Test 01/09/19 17:20 01/09/19 18:41 Range/Units White Blood Count 10.6 4.3-11.0 10^3/uL Red Blood Count 3.80 L 4.35-5.85 10^6/uL Hemoglobin 10.4 L 11.5-16.0 G/DL Hematocrit 34 L 35-52 % Mean Corpuscular Volume 88 80-99 FL Mean Corpuscular Hemoglobin 27 25-34 PG Mean Corpuscular Hemoglobin Concent 31 L 32-36 G/DL Red Cell Distribution Width 14.7 H 10.0-14.5 % Platelet Count 135 130-400 10^3/uL Mean Platelet Volume 11.4 H 7.4-10.4 FL Neutrophils (%) (Auto) 79 H 42-75 % Lymphocytes (%) (Auto) 14 12-44 % Monocytes (%) (Auto) 5 0-12 % Eosinophils (%) (Auto) 2 0-10 % Basophils (%) (Auto) 0 0-10 % Neutrophils # (Auto) 8.4 H 1.8-7.8 X 10^3 Lymphocytes # (Auto) 1.5 1.0-4.0 X 10^3 Monocytes # (Auto) 0.6 0.0-1.0 X 10^3 Eosinophils # (Auto) 0.2 0.0-0.3 10^3/uL Basophils # (Auto) 0.0 0.0-0.1 10^3/uL Prothrombin Time 19.9 H 12.2-14.7 SEC INR Comment 1.6 H 0.8-1.4 Activated Partial Thromboplast Time 52 H 24-35 SEC Sodium Level 141 135-145 MMOL/L Potassium Level 4.8 3.6-5.0 MMOL/L Chloride Level 105 98-107 MMOL/L Carbon Dioxide Level 23 21-32 MMOL/L Anion Gap 13 5-14 MMOL/L Blood Urea Nitrogen 36 H 7-18 MG/DL Creatinine 1.78 H 0.60-1.30 MG/DL Estimat Glomerular Filtration Rate 29 BUN/Creatinine Ratio 20 Glucose Level 94 70-105 MG/DL Lactic Acid Level 0.91 0.50-2.00 MMOL/L Calcium Level 9.8 8.5-10.1 MG/DL Corrected Calcium 9.8 8.5-10.1 MG/DL Total Bilirubin 1.1 H 0.1-1.0 MG/DL Aspartate Amino Transf (AST/SGOT) 48 H 5-34 U/L Alanine Aminotransferase (ALT/SGPT) 43 0-55 U/L Alkaline Phosphatase 89 40-136 U/L Troponin I 0.048 H <0.028 NG/ML Total Protein 8.8 H 6.4-8.2 GM/DL Albumin 4.0 3.2-4.5 GM/DL Urine Color YELLOW Urine Clarity SL CLOUDY Urine pH 5 5-9 Urine Specific [employer] 1.020 1.016-1.022 Urine Protein 3+ H NEGATIVE Urine Glucose (UA) NEGATIVE NEGATIVE Urine Ketones NEGATIVE NEGATIVE Urine Nitrite NEGATIVE NEGATIVE Urine Bilirubin NEGATIVE NEGATIVE Urine Urobilinogen NORMAL NORMAL MG/DL Urine Leukocyte Esterase 2+ H NEGATIVE Urine RBC (Auto) 1+ H NEGATIVE Urine RBC RARE /HPF Urine WBC 10-25 H /HPF Urine Squamous Epithelial Cells 0-2 /HPF Urine Renal Epithelial Cells 2-5 /HPF Urine Crystals NONE /LPF Urine Bacteria NEGATIVE /HPF Urine Casts NONE /LPF Urine Mucus NEGATIVE /LPF Urine Culture Indicated YES Magnesium Level 2.1 1.6-2.4 MG/DL Myoglobin 52.0 10.0-92.0 NG/ML B-Type Natriuretic Peptide 682.7 H <100.0 PG/ML Micro Results Microbiology 01/09/19 Influenza Types A,B Antigen (VERÓNICA) - Final, Complete My Orders Orders - JESSICA PAIGE Chest 1 View, Ap/Pa Only (01/09/19 17:37) Cbc With Automated Diff (01/09/19 17:37) Comprehensive Metabolic Panel (01/09/19 17:37) Protime With Inr (01/09/19 17:37) Partial Thromboplastin Time (01/09/19 17:37) Troponin I (01/09/19 17:37) Ua Culture If Indicated (01/09/19 17:37) Blood Culture (01/09/19 17:37) Influenza A And B Antigens (01/09/19 17:37) Lactic Acid Analyzer (01/09/19 17:37) Ekg Tracing (01/09/19 17:37) BNP (01/09/19 18:36) Magnesium (01/09/19 18:36) Myoglobin Serum (01/09/19 18:36) Aspirin Chewable Tablet (Baby Aspirin Ch (01/09/19 18:45) Urine Culture (01/09/19 18:41) Ed Iv/Invasive Line Start (01/09/19 19:11) Ns Iv 1000 Ml (Sodium Chloride 0.9%) (01/09/19 19:11) Furosemide Injection (Lasix Injection) (01/09/19 19:30) Medications Given in ED Current Medications Medications Dose Ordered Sig/Papa Route Start Time Stop Time Status Last Admin Dose Admin Aspirin 324 mg ONCE ONCE PO 01/09/19 18:45 01/09/19 18:46 DC 01/09/19 18:44 324 MG Furosemide 20 mg ONCE ONCE IVP 01/09/19 19:30 01/09/19 19:31 DC 01/09/19 19:32 20 MG Vital Signs/I&O 01/09/19 01/09/19 01/09/19 17:10 17:10 17:28 Temp 36.4 Pulse 103 Resp 20 B/P (MAP) 174/89 (117) Pulse Ox 98 98 100 O2 Delivery OxyMask OxyMask Vapotherm O2 Flow Rate 8.00 8.00 40.00 FiO2 100 Capillary Refill : Less Than 3 Seconds Blood Pressure Mean: 117 Progress Note : Time: 17:20 Progress Note Patient seen and evaluated, started on O2 at 6 L per NC, until Vapotherm set up by RT, SaO2 improved to 94%. Unsure if her portable canister is correctly dispensing O2. Will get labs, CXR and EKG. 1820 Reviewed Labs, patient has no chest pain since on Vapotherm. VS stable. Patient becomes SOA with long conversation, denies dyspnea on bed rest. [address] Lopez, agreed to admit, will place in ICU and obtain ABG (notified ICU nurse). Bridge Orders completed, will switch to Bipap at . [address] Serrano, agreed to consult over night (if needed), otherwise Dr. West to see in AM. ECG Initial ECG Impression Date: Jan 09, 2019 Initial ECG Impression Time: 17:35 Initial ECG Rate: 88 Initial ECG Rhythm: Normal Sinus Initial ECG Intervals: Normal Initial ECG Intervals SC 156, QRSD 102, QT 376, QTc 455. [place] P 58, QRS 45, T -5. Initial ECG Impression: Normal Initial ECG Comparisson: Unchanged Comment Reviewed with Dr. Carrington Diagnostic Imaging Diagonstic Imaging: Xray Plain Films/CT/US/NM/MRI: chest Comments NAME: NEELIMA CRAIN [facility] REC#: [id number] PT STATUS: REG ER : 1955 PHYSICIAN: JESSICA PAIGE ADMIT DATE: 01/09/19/ER Signed Date of Exam: 01/09/19 CHEST 1 VIEW, AP/PA ONLY INDICATION: Shortness of breath x2 days. COMPARISON: 07/24/2018. FINDINGS: Cardiac size has increased. There has been development of diffuse interstitial infiltrates. Pulmonary vasculature has increased as well. No consolidated infiltrates are noted. No pneumothorax or pleural effusions. A railway track plant operator overlies the left chest. IMPRESSION: Cardiomegaly with infiltrates is consistent with developing congestive failure. 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 Referrals: GEE AMADO MD (PCP/Family) Primary Care Physician Copy Copies To 1: GEE AMADO MD; BOOM WEST MD, AMY ARNP Jan 09, 2019 17:47
[2019-01-09 17:48] LABS: BASOPHILS % (AUTO) 0 % (0-10); EOSINOPHILS # (AUTO) 0.2 10^3/uL (0.0-0.3); EOSINOPHILS % (AUTO) 2 % (0-10); HEMATOCRIT 34 % (35-52); HEMOGLOBIN 10.4 G/DL (11.5-16.0); LYMPHOCYTES # (AUTO) 1.5 X 10^3 (1.0-4.0); LYMPHOCYTES % (AUTO) 14 % (12-44); MEAN CORPUSCULAR HEMOGLOBIN 27 PG (25-34); MEAN CORPUSCULAR HGB CONC 31 G/DL (32-36); MEAN CORPUSCULAR VOLUME 88 FL (80-99); MEAN PLATELET VOLUME 11.4 FL (7.4-10.4); MONOCYTES # (AUTO) 0.6 X 10^3 (0.0-1.0); MONOCYTES % (AUTO) 5 % (0-12); NEUTROPHILS # (AUTO) 8.4 X 10^3 (1.8-7.8); NEUTROPHILS % (AUTO) 79 % (42-75); PLATELET COUNT 135 10^3/uL (130-400); RED CELL DISTRIBUTION WIDTH 14.7 % (10.0-14.5); WHITE BLOOD COUNT 10.6 10^3/uL (4.3-11.0)
[2019-01-09 17:53] LABS: INR 1.6 (0.8-1.4); PROTHROMBIN TIME PATIENT 19.9 SEC (12.2-14.7)
[2019-01-09 17:58] LABS: BILIRUBIN,TOTAL 1.1 MG/DL (0.1-1.0); CALCIUM 9.8 MG/DL (8.5-10.1); CREATININE SERUM 1.78 MG/DL (0.60-1.30); POTASSIUM 4.8 MMOL/L (3.6-5.0); TOTAL PROTEIN 8.8 GM/DL (6.4-8.2)
--- NOTE | 2019-01-09 18:07 | Diagnostic Imaging Report ---
INDICATION: Shortness of breath x2 days. COMPARISON: 07/24/2018. FINDINGS: Cardiac size has increased. There has been development of diffuse interstitial infiltrates. Pulmonary vasculature has increased as well. No consolidated infiltrates are noted. No pneumothorax or pleural effusions. A child monitor overlies the left chest. IMPRESSION: Cardiomegaly with infiltrates is consistent with developing congestive failure. Dictated by: Dictated on workstation # [id number]
[2019-01-09] MEDS ORDERED: ASPIRIN 81 MG CHEW (CHILDREN'S ASA) PO ONE (18:45)
[2019-01-09 18:57] LABS: BILIRUBIN,URINE NEGATIVE (NEGATIVE); GLUCOSE, URINE (UA) NEGATIVE (NEGATIVE); KETONES,URINE NEGATIVE (NEGATIVE); LEUKOCYTE ESTERASE ,URINE 2+ (NEGATIVE); NITRITE,URINE NEGATIVE (NEGATIVE); PH,URINE 5 (5-9); PROTEIN,URINE 3+ (NEGATIVE)
[2019-01-09 19:02] LABS: BACTERIA,URINE NEGATIVE /HPF; CLARITY,URINE SL CLOUDY; COLOR,URINE YELLOW; RBC,URINE RARE /HPF; SQUAMOUS EPITHELIAL CELL,UR 0-2 /HPF
[2019-01-09 19:04] LABS: MAGNESIUM 2.1 MG/DL (1.6-2.4)
[2019-01-09] MEDS ORDERED: NS IV 1000 ML 1,000 ML IV SCH (19:11)
[2019-01-09] MEDS ORDERED: FUROSEMIDE 40 MG/4 ML INJ (LASIX) IVP ONE (19:30)
[2019-01-09] MEDS ORDERED: KETOROLAC 30 MG/ML VIAL IV PRN (20:30)
[2019-01-09] MEDS ORDERED: ONDANSETRON 4 MG/2 ML (SDV) Z0FRAN IV PRN (20:30)
[2019-01-09] MEDS ORDERED: ACETAMINOPHEN 325 MG TABLET PO PRN (20:30)
[2019-01-09] MEDS ORDERED: CATHETER FLUSH 10 ML SYR IV PRN (20:30)
[2019-01-09] MEDS ORDERED: LORazepam INJ 2 MG/ML (ATIVAN) VIAL IV PRN (20:30)
[2019-01-09] MEDS ORDERED: CALCIUM CARBONATE 500 MG (TUMS) TAB.CHEW PO PRN (21:15)
[2019-01-09] MEDS ORDERED: diphenhydrAMINE 25 MG TAB (BENADRYL) PO PRN (21:15)
[2019-01-09] MEDS ORDERED: DOCUSATE SODIUM 100 MG (COLACE) CAP PO PRN (21:15)
[2019-01-09] MEDS ORDERED: MELATONIN 3 MG TABLET PO PRN (21:15)
[2019-01-09] MEDS ORDERED: LOPERAMIDE 2 MG (IMODIUM) TABLET PO PRN (21:15)
[2019-01-09 21:27] LABS: ABG BASE EXCESS 2.4 MMOL/L (-2.5-2.5); ABG OXYGEN SATURATION 64 % (94-100); ABG PCO2 46 MMHG (35-45); ABG PH 7.38 (7.37-7.43); ABG PO2 40 MMHG (79-93); ABG TCO2 28.4 MMOL/L (21.0-31.0)
[2019-01-09 21:29] LABS: ALLENS TEST YES-POS; INSPIRED O2 60%; PATIENT TEMP 36.8; VENTILATOR NO
[2019-01-09 21:31] LABS: ABG BASE EXCESS 1.1 MMOL/L (-2.5-2.5); ABG OXYGEN SATURATION 98 % (94-100); ABG PCO2 42 MMHG (35-45); ABG PO2 100 MMHG (79-93); ABG TCO2 26.8 MMOL/L (21.0-31.0)
[2019-01-09 21:32] LABS: ALLENS TEST YES-POS; INSPIRED O2 8L; PATIENT TEMP 36.4; VENTILATOR NO
--- NOTE | 2019-01-09 23:45 | NUR ---
This RN notified EICU of pt's elevated BP. New orders received at this time, see order hx.
[2019-01-10] VITALS (27 sets, daily range): BP systolic 119–204; BP diastolic 55–96
[2019-01-10] MEDS ORDERED: RT-ALBUTEROL SULF 2.5 MG/3 ML PRE-MIX VIAL INH PRN (00:15)
[2019-01-10] MEDS ORDERED: LABETALOL HCL 20 MG/4 ML VIAL ONE (00:26)
[2019-01-10] MEDS ORDERED: LABETALOL HCL 20 MG/4 ML VIAL IV ONE (00:45)
[2019-01-10] MEDS: cefTRIAXone 2,000 MG/SWFI 20 ML IV PUSH IV SCH ×2 (01:13)
[2019-01-10] MEDS: inSUlin ASPART (NovoLOG) 1 UNIT/0.01 ML (CHARGE PER UNIT) SC SCH ×6 (01:30→20:46)
[2019-01-10] MEDS ORDERED: ENOXAPARIN 100 MG/1 ML (LOVENOX) SYR ONE (02:01)
[2019-01-10 03:40] LABS: BASOPHILS % (AUTO) 0 % (0-10); EOSINOPHILS # (AUTO) 0.1 10^3/uL (0.0-0.3); EOSINOPHILS % (AUTO) 1 % (0-10); HEMATOCRIT 30 % (35-52); LYMPHOCYTES # (AUTO) 0.7 X 10^3 (1.0-4.0); LYMPHOCYTES % (AUTO) 8 % (12-44); MEAN CORPUSCULAR HEMOGLOBIN 26 PG (25-34); MEAN CORPUSCULAR HGB CONC 30 G/DL (32-36); MEAN CORPUSCULAR VOLUME 88 FL (80-99); MEAN PLATELET VOLUME 11.3 FL (7.4-10.4); MONOCYTES # (AUTO) 0.4 X 10^3 (0.0-1.0); MONOCYTES % (AUTO) 4 % (0-12); NEUTROPHILS # (AUTO) 7.7 X 10^3 (1.8-7.8); NEUTROPHILS % (AUTO) 87 % (42-75); PLATELET COUNT 116 10^3/uL (130-400); RED CELL DISTRIBUTION WIDTH 14.6 % (10.0-14.5); WHITE BLOOD COUNT 8.9 10^3/uL (4.3-11.0)
[2019-01-10 04:01] LABS: ALBUMIN 3.4 GM/DL (3.2-4.5); BILIRUBIN,TOTAL 0.8 MG/DL (0.1-1.0); CALCIUM 9.3 MG/DL (8.5-10.1); CREATININE SERUM 1.59 MG/DL (0.60-1.30); MAGNESIUM 1.9 MG/DL (1.6-2.4); PHOSPHORUS 1.8 MG/DL (2.3-4.7); TOTAL PROTEIN 7.5 GM/DL (6.4-8.2)
[2019-01-10 04:33] LABS: ABG BASE EXCESS 0.2 MMOL/L (-2.5-2.5); ABG OXYGEN SATURATION 99 % (94-100); ABG PCO2 38 MMHG (35-45); ABG PH 7.42 (7.37-7.43); ABG PO2 93 MMHG (79-93); ABG TCO2 25.4 MMOL/L (21.0-31.0)
[2019-01-10 04:35] LABS: ALLENS TEST YES-POS; INSPIRED O2 45%
[2019-01-10 04:36] LABS: PATIENT TEMP 36.7; VENTILATOR NO
[2019-01-10] MEDS: POTASSIUM CL 10MEQ/50ML IVPB 50 ML IV SCH (06:15)
[2019-01-10] MEDS: MAGNESIUM 1 GM/100 ML IVPB 100 ML IV SCH (06:15)
[2019-01-10] MEDS: KCL 20 MEQ TAB (K-DUR) PO SCH (06:15)
[2019-01-10] MEDS ORDERED: FUROSEMIDE 40 MG/4 ML INJ (LASIX) IV SCH (07:00)
[2019-01-10] MEDS ORDERED: FLU QUADRIvalent (5+ YOA) 2019-2020 (AFLURIA) 0.5 ML IM ONE (07:15)
--- NOTE | 2019-01-10 07:48 | Consultation-Cardiology ---
HPI-Cardiology Cardiology Consultation Date of Consultation 01/10/19 Date of Admission Time Seen by Provider: 07:42 Indication: Shortness of breath HPI 63-year-old lady with history of paroxysmal atrial fibrillation, coronary artery disease, COPD. Started to have increasing shortness of breath for the past 3 days had fever, thought it was secondary to a cold. Continue to deteriorate until yesterday when she came to the emergency room and she was returned respiratory failure. She is currently on Vapotherm still having shortness of breath, having active wheezing. Had some tightness in her chest with taking a deep breath. No palpitation. No syncope or near syncopal episodes. No claudications. She was admitted and started on diuretic and IV antibiotics. Home Medications & Allergies Allergies: Coded Allergies: morphine (Verified Adverse Reaction, Severe, hallucination, 07/12/18) Home Medication List Reviewed: Yes DOG-Tymoar-Jlrstm Hx Patient Social History Marital Status: Employed/Student: employed Alcohol Use: Denies Use Recreational Drug Use: No Smoking Status: Former Smoker Type Used: Cigarettes 2nd Hand Smoke Exposure: No Recent Foreign Travel: No Recent Infectious Disease Expo: No Recent Hopitalizations: No Immunizations Up To Date Tetanus Booster (TDap): Unknown Date of Pneumonia Vaccine: Mar 05, 2013 Date of Influenza Vaccine: Dec 11, 2014 Past Medical History Discussed below Family Medical History Significant Family History: No Pertinent Family Hx Family Medical Hx Noncontributory to her current condition Review of Systems-General Review of Systems Constitutional: chills, fever (per patient report patient is afebrile on arrival to emergency department), malaise, weakness EENTM: see HPI Respiratory: see HPI, cough, dyspnea on exertion, short of breath, wheezing Cardiovascular: see HPI, chest pain (intermittent chest pain resolved with oxygen), Hx of Intervention Gastrointestinal: no symptoms reported, see HPI Genitourinary: no symptoms reported, see HPI Musculoskeletal: no symptoms reported, see HPI Skin: no symptoms reported, see HPI Psychiatric/Neurological: No Symptoms Reported, See HPI All Other Systems Reviewed Negative Unless Noted: Yes Reviewed Test Results Reviewed Test Results Lab Laboratory Tests Test 01/09/19 17:20 01/09/19 17:27 01/09/19 18:41 01/09/19 20:24 Range/Units White Blood Count 10.6 4.3-11.0 10^3/uL Red Blood Count 3.80 L 4.35-5.85 10^6/uL Hemoglobin 10.4 L 11.5-16.0 G/DL Hematocrit 34 L 35-52 % Mean Corpuscular Volume 88 80-99 FL Mean Corpuscular Hemoglobin 27 25-34 PG Mean Corpuscular Hemoglobin Concent 31 L 32-36 G/DL Red Cell Distribution Width 14.7 H 10.0-14.5 % Platelet Count 135 130-400 10^3/uL Mean Platelet Volume 11.4 H 7.4-10.4 FL Neutrophils (%) (Auto) 79 H 42-75 % Lymphocytes (%) (Auto) 14 12-44 % Monocytes (%) (Auto) 5 0-12 % Eosinophils (%) (Auto) 2 0-10 % Basophils (%) (Auto) 0 0-10 % Neutrophils # (Auto) 8.4 H 1.8-7.8 X 10^3 Lymphocytes # (Auto) 1.5 1.0-4.0 X 10^3 Monocytes # (Auto) 0.6 0.0-1.0 X 10^3 Eosinophils # (Auto) 0.2 0.0-0.3 10^3/uL Basophils # (Auto) 0.0 0.0-0.1 10^3/uL Prothrombin Time 19.9 H 12.2-14.7 SEC INR Comment 1.6 H 0.8-1.4 Activated Partial Thromboplast Time 52 H 24-35 SEC Sodium Level 141 135-145 MMOL/L Potassium Level 4.8 3.6-5.0 MMOL/L Chloride Level 105 98-107 MMOL/L Carbon Dioxide Level 23 21-32 MMOL/L Anion Gap 13 5-14 MMOL/L Blood Urea Nitrogen 36 H 7-18 MG/DL Creatinine 1.78 H 0.60-1.30 MG/DL Estimat Glomerular Filtration Rate 29 BUN/Creatinine Ratio 20 Glucose Level 94 70-105 MG/DL Lactic Acid Level 0.91 0.50-2.00 MMOL/L Calcium Level 9.8 8.5-10.1 MG/DL Corrected Calcium 9.8 8.5-10.1 MG/DL Total Bilirubin 1.1 H 0.1-1.0 MG/DL Aspartate Amino Transf (AST/SGOT) 48 H 5-34 U/L Alanine Aminotransferase (ALT/SGPT) 43 0-55 U/L Alkaline Phosphatase 89 40-136 U/L Troponin I 0.048 H <0.028 NG/ML Total Protein 8.8 H 6.4-8.2 GM/DL Albumin 4.0 3.2-4.5 GM/DL Blood Gas Puncture Site LEFT RADIAL Blood Gas Patient Temperature 36.4 Arterial Blood pH 7.40 7.37-7.43 Arterial Blood Partial Pressure CO2 42 35-45 MMHG Arterial Blood Partial Pressure O2 100 H 79-93 MMHG Arterial Blood HCO3 26 23-27 MMOL/L Arterial Blood Total CO2 26.8 21.0-31.0 MMOL/L Arterial Blood Oxygen Saturation 98 94-100 % Arterial Blood Base Excess 1.1 -2.5-2.5 MMOL/L Jose Test YES-POS Blood Gas Ventilator Setting NO Blood Gas Inspired Oxygen 8L Urine Color YELLOW Urine Clarity SL CLOUDY Urine pH 5 5-9 Urine Specific [place] 1.020 1.016-1.022 Urine Protein 3+ H NEGATIVE Urine Glucose (UA) NEGATIVE NEGATIVE Urine Ketones NEGATIVE NEGATIVE Urine Nitrite NEGATIVE NEGATIVE Urine Bilirubin NEGATIVE NEGATIVE Urine Urobilinogen NORMAL NORMAL MG/DL Urine Leukocyte Esterase 2+ H NEGATIVE Urine RBC (Auto) 1+ H NEGATIVE Urine RBC RARE /HPF Urine WBC 10-25 H /HPF Urine Squamous Epithelial Cells 0-2 /HPF Urine Renal Epithelial Cells 2-5 /HPF Urine Crystals NONE /LPF Urine Bacteria NEGATIVE /HPF Urine Casts NONE /LPF Urine Mucus NEGATIVE /LPF Urine Culture Indicated YES Magnesium Level 2.1 1.6-2.4 MG/DL Myoglobin 52.0 10.0-92.0 NG/ML B-Type Natriuretic Peptide 682.7 H <100.0 PG/ML Glucometer 105 70-110 MG/DL Test 01/09/19 21:17 01/09/19 22:55 01/10/19 01:16 01/10/19 03:00 Range/Units Blood Gas Puncture Site LEFT RADIAL Blood Gas Patient Temperature 36.8 Arterial Blood pH 7.38 7.37-7.43 Arterial Blood Partial Pressure CO2 46 H 35-45 MMHG Arterial Blood Partial Pressure O2 40 L 79-93 MMHG Arterial Blood HCO3 27 23-27 MMOL/L Arterial Blood Total CO2 28.4 21.0-31.0 MMOL/L Arterial Blood Oxygen Saturation 64 L 94-100 % Arterial Blood Base Excess 2.4 -2.5-2.5 MMOL/L Jose Test YES-POS Blood Gas Ventilator Setting NO Blood Gas Inspired Oxygen 60% Troponin I 0.034 H <0.028 NG/ML Glucometer 203 H 70-110 MG/DL White Blood Count 8.9 4.3-11.0 10^3/uL Red Blood Count 3.41 L 4.35-5.85 10^6/uL Hemoglobin 9.0 L 11.5-16.0 G/DL Hematocrit 30 L 35-52 % Mean Corpuscular Volume 88 80-99 FL Mean Corpuscular Hemoglobin 26 25-34 PG Mean Corpuscular Hemoglobin Concent 30 L 32-36 G/DL Red Cell Distribution Width 14.6 H 10.0-14.5 % Platelet Count 116 L 130-400 10^3/uL Mean Platelet Volume 11.3 H 7.4-10.4 FL Neutrophils (%) (Auto) 87 H 42-75 % Lymphocytes (%) (Auto) 8 L 12-44 % Monocytes (%) (Auto) 4 0-12 % Eosinophils (%) (Auto) 1 0-10 % Basophils (%) (Auto) 0 0-10 % Neutrophils # (Auto) 7.7 1.8-7.8 X 10^3 Lymphocytes # (Auto) 0.7 L 1.0-4.0 X 10^3 Monocytes # (Auto) 0.4 0.0-1.0 X 10^3 Eosinophils # (Auto) 0.1 0.0-0.3 10^3/uL Basophils # (Auto) 0.0 0.0-0.1 10^3/uL Sodium Level 138 135-145 MMOL/L Potassium Level 4.0 3.6-5.0 MMOL/L Chloride Level 103 98-107 MMOL/L Carbon Dioxide Level 20 L 21-32 MMOL/L Anion Gap 15 H 5-14 MMOL/L Blood Urea Nitrogen 29 H 7-18 MG/DL Creatinine 1.59 H 0.60-1.30 MG/DL Estimat Glomerular Filtration Rate 33 BUN/Creatinine Ratio 18 Glucose Level 234 H 70-105 MG/DL Calcium Level 9.3 8.5-10.1 MG/DL Corrected Calcium 9.8 8.5-10.1 MG/DL Phosphorus Level 1.8 L 2.3-4.7 MG/DL Magnesium Level 1.9 1.6-2.4 MG/DL Total Bilirubin 0.8 0.1-1.0 MG/DL Aspartate Amino Transf (AST/SGOT) 36 H 5-34 U/L Alanine Aminotransferase (ALT/SGPT) 36 0-55 U/L Alkaline Phosphatase 74 40-136 U/L Total Protein 7.5 6.4-8.2 GM/DL Albumin 3.4 3.2-4.5 GM/DL Test 01/10/19 04:18 Range/Units Blood Gas Puncture Site RIGHT RADIAL Blood Gas Patient Temperature 36.7 Arterial Blood pH 7.42 7.37-7.43 Arterial Blood Partial Pressure CO2 38 35-45 MMHG Arterial Blood Partial Pressure O2 93 79-93 MMHG Arterial Blood HCO3 24 23-27 MMOL/L Arterial Blood Total CO2 25.4 21.0-31.0 MMOL/L Arterial Blood Oxygen Saturation 99 94-100 % Arterial Blood Base Excess 0.2 -2.5-2.5 MMOL/L Jose Test YES-POS Blood Gas Ventilator Setting NO Blood Gas Inspired Oxygen 45% Physical Exam Physical Exam Vital Signs Vital Signs - First Documented 01/09/19 01/09/19 17:10 17:28 Temp 36.4 Pulse 103 Resp 20 B/P (MAP) 174/89 (117) Pulse Ox 98 O2 Delivery OxyMask O2 Flow Rate 8.00 FiO2 100 Capillary Refill : Less Than 3 Seconds Height, Weight, BMI Height: 5'4.00" Weight: 219lbs. 1.0oz. 99.796965qj; 44.00 BMI Method:Stated General Appearance: No Apparent Distress, WD/WN Eyes: Bilateral Eye Normal Inspection, Bilateral Eye PERRL HEENT: PERRL/EOMI, TMs Normal, Normal ENT Inspection, Pharynx Normal, Moist Mucous Membranes Neck: Full Range of Motion, Normal Inspection, Non Tender, Supple, Carotid Bruit Respiratory: Chest Non Tender, Normal Breath Sounds, No Accessory Muscle Use, No Respiratory Distress, Rhonci, Wheezing Cardiovascular: Regular Rate, Rhythm, No Edema, No Gallop, No JVD, No Murmur, Normal Peripheral Pulses Gastrointestinal: Normal Bowel Sounds, No Organomegaly, No Pulsatile Mass, Non Tender, Soft Back: Normal Inspection, No CVA Tenderness, No Vertebral Tenderness Extremity: Normal Capillary Refill, Normal Inspection, Normal Range of Motion, Non Tender, No Calf Tenderness, No Pedal Edema Neurologic/Psychiatric: Alert, Oriented x3, No Motor/Sensory Deficits, Normal Mood/Affect Skin: Normal Color, Warm/Dry Lymphatic: No Adenopathy A/P-Cardiology Admission Diagnosis Acute respiratory failure Acute exacerbation of COPD Congestive heart failure, acute left ventricular diastolic dysfunction Coronary artery disease Assessment/Plan Acute respiratory failure, currently on Vapotherm, acute exacerbation of COPD and congestive heart failure, last echo was done in July 2018 showing normal left ventricular systolic function with ejection fraction 55-65 percent, left atrial dilatation, moderate mitral regurgitation and pulmonary hypertension with PA pressure of 40 mmHg. Continue on Vapotherm, MAT protocol, diuretics and antibiotics and monitor tolerance and response Paroxysmal atrial fibrillation, history of electrical cardioversion, currently in sinus rhythm. Sinus node dysfunction, history of severe bradycardia, currently heart rate is well-controlled, continue to monitor Mild elevation in troponin level, no active chest pain, no acute EKG changes, probably due to hypoxemia and small vessel disease. Medical therapy is recommen ded continue to monitor Type II myocardial infarction secondary to hypoxemia, last cardiac catheterization as described below Coronary artery disease, history of stent placement 2 to the LAD. In August 2013 cardiac cath revealed patent stents to LAD, known to have Taxus 320 mm stent in the mid LAD, proximal to that there was a stent placed in 2011 which is 312 mm Ion stent. Both are patent with 40-50 percent in-stent restenosis. Secondary branch had 90 percent stenosis at the ostium. Small artery, not amendable to intervention. Another cardiac catheterization February 2015 showing patent stents in the proximal LAD with 50 percent stenosis beyond the stent and 50 percent stenosis at the midportion of the LAD small vessel disease distally, moderate 40-50 percent stenosis in the right coronary artery with multiple segment of the proximal, mid and distal portion. Cardiac catheterization done March 05, 2017 revealed severe LAD stenosis beyond the previously known stent 3.0. Successful primary stenting using 3.08 mm ALPINE expanded to 3.5 with excellent results, balloon for in-stent restenosis also was made. Most recent cardiac catheterization done March 09, 2018 revealed patent stent with small vessel disease, no intervention required. continue to monitor [id number] score of 4, yearly risk of stroke without oral anticoagulation is 4 percent. continue on Eliquis, discontinue Lovenox Hypertension, continue on current medication monitor blood pressure Renal arterial duplex done July 2015 revealed proximal right renal artery not evaluated, other segments of the left renal artery demonstrated no evidence of significant stenosis, continue to monitor Hyperlipidemia, Lipitor was increased recently. Continue to monitor Obstructive sleep apnea, using C Pap, using oxygen as needed, currently on Vapotherm Nonobstructive carotid artery stenosis per carotid duplex done in February 2018, continue to monitor. Diabetes mellitus-managed by primary care physician Chronic pain, followed and managed by primary care physician Obesity, BMI is 37, discussed diet and exercise for weight loss. Clinical Quality Measures DVT/VTE Risk/Contraindication: Risk Factor Score Per Nursin RFS Level Per Nursing on Admit: 4+=Very High BOOM MILLER MD Jan 10, 2019 07:48
[2019-01-10] MEDS: NS IV 1000 ML 1,000 ML IV SCH ×3 (07:56→20:49)
[2019-01-10] MEDS: SENNA W/DOCUSATE (SENOKOT S) TABLET PO SCH ×2 (07:57→20:48)
[2019-01-10] MEDS: APIXABAN 5 MG (ELIQUIS) TABLET PO SCH ×2 (08:00→20:46)
--- NOTE | 2019-01-10 08:52 | Diagnostic Imaging Report ---
INDICATION: Shortness of air. TECHNIQUE: Single view chest at 3:21 AM. CORRELATION STUDY: 01/09/2019. FINDINGS: The heart size remains enlarged with a loop recorder device over the left chest. The vasculature remains prominent but is slightly diminished and improved. Scattered, somewhat groundglass opacities within both lung freeman are present. The findings are generally improved with the exception of slightly increased involvement of the right mid to upper lung field. Elevated right diaphragm. Cervical spinal fusion hardware is present. IMPRESSION: 1. Overall severity of congestive heart failure does appear to be slightly improved but does persist. 2. Improvement in aeration to the lung freeman with the exception of some increased density over the right mid to upper lung field which may be reflective of asymmetric edema. Developing infiltrates are considered less likely but not excluded. Dictated by: Dictated on workstation # [id number]
[2019-01-10] MEDS ORDERED: INSU100I29 SC (09:12)
[2019-01-10] MEDS ORDERED: HYDR-3922 PO (09:12)
[2019-01-10] MEDS ORDERED: METF500T8 PO (09:12)
[2019-01-10] MEDS ORDERED: AMLO10TA7 PO (09:12)
[2019-01-10] MEDS ORDERED: LISI-552 PO (09:12)
[2019-01-10] MEDS ORDERED: DRON400T2 PO (09:12)
[2019-01-10] MEDS ORDERED: METO100T12 PO (09:12)
[2019-01-10] MEDS ORDERED: CLON0.1T PO (09:12)
[2019-01-10] MEDS ORDERED: DULA0.75 SC (09:12)
[2019-01-10] MEDS ORDERED: RIVA20TA PO (09:28)
[2019-01-10] MEDS: RT-ALBUTEROL/IPRATROPIUM 3 ML (DUONEB) VIAL INH SCH ×5 (10:47→22:30)
--- NOTE | 2019-01-10 10:59 | History & Physical-Hospitalist ---
SHREYA [place] 01/10/19 1059: History of Present Illness HPI/Chief Complaint CC: Shortness of breath HPI: Pt presented to the ER after having trouble breathing for the past 3-4 days. She states of Wednesday she started noticing trouble breathing that has gotten worse over the weekend and is associated with a headache and chest pain that is like a pressure/bruised type feeling when she breathes in deeply. She had a little blurry vision on Wednesday (2 days ago) and has a feeling of feverish. She denies any chills, nausea, vomiting, diarrhea, constipation. She came to the ER on home oxygen at 4L nasal cannula and her initial O2 saturation was in the 70s, but was placed on Vapotherm upon arrival in ER which increased her saturation to 94%. She does complain of a cough that is non productive. She is currently in the ICU on vapotherm 30L at 60% nasal cannula and saturating in mid 90s at rest dropping to 80s with activity. Source: patient, family Date Seen 01/10/19 Time Seen by a Provider: 07:45 Attending Physician Shanae Escobedo DO PCP Obdulio Cabral MD Referring Physician Date of Admission Jan 10, 2019 at 08:09 Home Medications & Allergies Home Medications Reviewed patient Home Medication Reconciliation performed by pharmacy medication reconciliations healthcare technician and/or nursing. Patients Allergies have been reviewed. Allergies Allergies Coded Allergies morphine (Verified Adverse Reaction, Severe, hallucination, 07/12/18) Past Voidnfx-Yywjhh-Srkzzq Hx Past Med/Social Hx: Reviewed Nursing Past Med/Soc Hx Patient Social History Marrital Status: Employed/Student: employed Alcohol Use: Denies Use Recreational Drug Use: No Smoking Status: Former Smoker Former Smoker, Quit: Mar 24, 1997 Type Used: Cigarettes 2nd Hand Smoke Exposure: No Recent Foreign Travel: No Contact w/other who traveled: No Recent Hopitalizations: No Recent Infectious Disease Expo: No Immunizations Up To Date Tetanus Booster (TDap): Unknown Pediatric: Yes Date of Pneumonia Vaccine: Mar 05, 2013 Date of Influenza Vaccine: Dec 11, 2014 Seasonal Allergies Seasonal Allergies: No Past Medical History Surgeries: Coronary Stent, Gallbladder, Hysterectomy, Orthopedic Respiratory: Sleep Apnea Cardiac: Atrial Fibrillation, Coronary Artery Disease, High Cholesterol, Hypertension Reproductive: No Gastrointestinal: Gastroesophageal Reflux, Pancreatitis Musculoskeletal: Chronic Back Pain Endocrine: Diabetes, Insulin dep, Diabetes, Non-Insulin dep Hearing Impairment: Denies History of Blood Disorders: No Family History Diabetes (Father), Hypertension (Father) Review of Systems Constitutional: No chills; fever EENTM: blurred vision (2 days ago); No ear pain, No vision loss Respiratory: cough, dyspnea on exertion, short of breath Cardiovascular: chest pain, Hx of Intervention; No palpitations; vascular heart diseas Gastrointestinal: No abdominal pain, No constipation, No diarrhea, No nausea, No vomiting Genitourinary: No dysuria, No frequency Skin: no symptoms reported Psychiatric/Neurological: Headache; Denies Numbness, Denies Tingling Physical Exam Physical Exam Vital Signs Vital Signs - First Documented 01/09/19 01/09/19 17:10 17:28 Temp 36.4 Pulse 103 Resp 20 B/P (MAP) 174/89 (117) Pulse Ox 98 O2 Delivery OxyMask O2 Flow Rate 8.00 FiO2 100 Capillary Refill : Less Than 3 Seconds Height, Weight, BMI Height: 5'4.00" Weight: 219lbs. 1.0oz. 99.854225al; 44.00 BMI Method:Stated General Appearance: WD/WN, Mild Distress Respiratory: Lungs Clear, No Accessory Muscle Use, Decreased Breath Sounds (Bilateral Lower lobes), Respiratory Distress, Wheezing Cardiovascular: Regular Rate, Rhythm, No Gallop, No Murmur, Normal Peripheral Pulses Extremity: No Calf Tenderness, No Pedal Edema Neurologic/Psychiatric: Alert, Oriented x3, No Motor/Sensory Deficits, Normal Mood/Affect Skin: Normal Color, Warm/Dry Results Results/Procedures Labs Laboratory Tests 01/09/19 17:20 01/10/19 03:00 Patient resulted labs reviewed. Assessment/Plan Assessment and Plan Assessment: Shortness of Breath Hypertension Heart failure Diabetes Acute on Chronic Kidney Injury Plan: Vapotherm nasal canula to maintain O2 saturation above 90% Duoneb treatments q 4hrs DVT prophylaxis Hypertension management Diabetic management Clinical Quality Measures DVT/VTE Risk/Contraindication: Risk Factor Score Per Nursin RFS Level Per Nursing on Admit: 4+=Very High SHANAE ESCOBEDO DO 01/10/192036: History of Present Illness HPI/Chief Complaint Chief complaint: SOB HPI: This is a 63yoWF who is supposed to use night-time oxygen and CPAP noncompliant with both, who presented to the ER with SOB, found to have volume overload on chest X-ray prompting cardiology management of the elevated BNP requiring IV steroids for exacerbation of COPD. Chest pain has improved but she did require a piedra catheter because any movement caused the chest pain to worsen. She is currently on Vapotherm, will require inpatient ICU stay for now, Creatinine remains stable at 1.59, PLTs 116, and ABG shows much improved 7.42/38/93 today. May need BiPAP at night. Past Nwqxelb-Tmvovs-Yzhthp Hx Past Med/Social Hx: Reviewed Nursing Past Med/Soc Hx, Reviewed and Corrections made Patient Social History Marrital Status: Employed/Student: employed Review of Systems Constitutional: see HPI Respiratory: cough, dyspnea on exertion Physical Exam Physical Exam General Appearance: No Apparent Distress, WD/WN, Chronically ill Respiratory: Accessory Muscle Use, Decreased Breath Sounds (Bilateral Lower lobes), Wheezing Cardiovascular: Regular Rate, Rhythm Assessment/Plan Admission Diagnosis Assessment: AECOPD Resp failure requiring Vapotherm and biPAP CRI Chest pain Plan: Monitor chest pain Appreciate Dr Serrano consultation ICU Vapotherm and biPAP Admission Status: Inpatient Order (span 2 midnights) Reason for Inpatient Admission: Severe hypoxia requiring vapotherm and bipap Diagnosis/Problems Diagnosis/Problems (1) Respiratory failure Status: Acute (2) Hypoxia Status: Acute (3) CKD (chronic kidney disease) Status: Chronic (4) GERD (gastroesophageal reflux disease) Status: Chronic (5) A-fib Qualifiers: Atrial fibrillation type: unspecified Qualified Codes: I48.91 - Unspe cified atrial fibrillation (6) HTN (hypertension) Status: Chronic Qualifiers: Hypertension type: essential hypertension Qualified Codes: I10 - Essential (primary) hypertension (7) HLD (hyperlipidemia) Status: Chronic Qualifiers: Hyperlipidemia type: unspecified Qualified Codes: E78.5 - Hyperlipidemia, unspecified (8) Diabetes mellitus, type 2 Status: Chronic Qualifiers: 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: with buttermilk drier operator use Diabetes mellitus complication status: without complication Qualified Codes: E11.9 - Type 2 diabetes mellitus without complications; Z79.4 - MCFP (current) use of insulin (9) Acute renal insufficiency Status: Acute (10) COPD (chronic obstructive pulmonary disease) (11) BiPAP (biphasic positive airway pressure) dependence Supervisory-Addendum Brief Verification & Attestation Participated in pt care: history, MDM, physical Personally performed: exam, history, MDM, supervision of care Care discussed with: Medical Student Procedures: n/a Results interpretation: Verified all documentation Verification and Attestation of Medical Student E/M Service A medical student performed and documented this service in my presence. I reviewed and verified all information documented by the medical student and made modifications to such information, when appropriate. I personally performed the physical exam and medical decision making. Shanae Escobedo, Jan 10, 2019,20:37 [facility]RE[facility] [place] Jan 10, 2019 10:59 SHANAE ESCOBEDO DO Jan 10, 2019 20:37
--- NOTE | 2019-01-10 11:15 | NUR ---
Pastoral care visit, had prayer with pt and
--- NOTE | 2019-01-10 11:33 | NUR ---
WENT OVER THE EXT MED HX WITH THE PATIENT AND SHE VERIFIED WHAT SHE IS TAKING TO THE BEST OF HER ABILITY. SHE HAS A LENGTHY FILL HISTORY BUT DOES NOT HAVE AN UPDATED LIST THAT SHE KEEPS WITH HER. SHE STATES SHE KNOWS HER ELIQUIS WAS CHANGED TO A NEW MEDICATION BECAUSE OF INSURANCE BUT SHE IS UNSURE THE NAME OF THE NEW MED. SHE ALSO STATES SHE WAS PUT ON A MEDICATION FROM [facility] SEVERAL MONTHS AGO AND DR. MILLER IMMEDIATELY STOPPED IT DUE TO LOW HEART RATE AND BLOOD PRESSURE. SHE IS UNSURE OF THE NAME OF IT. I CALLED AND SPOKE WITH DR. MILLER'S OFFICE, THEY STATE THE ELIQUIS WAS CHANGED TO XARELTO AND SENT TO [facility] DID FILL XARELTO 20MG DAILY #90 10-29-18 THAT IS NOT SHOWING ON THE EXT MED HX, I UPDATED THE MED REC ACCORDINGLY. DR. MILLER'S OFFICE SENT OVER A LIST AND I COMPARED IT WITH WHAT HAS BEEN FILLED RECENTLY. AT HER LAST VISIT EARLIER THIS MONTH IT WAS NOTED TO STOP METOPROLOL, AFTER I TOLD THIS TO THE PATIENT SHE VERIFIED SHE DID KNOW THAT WAS STOPPED AND SHE HAS NOT BEEN TAKING IT. THEY DID NOT HAVE TRULICITY ON THE LIST EITHER HOWEVER SHE STATES SHE IS TAKING THAT. ALSO NOT ON THE LIST FROM DR. MILLER'S OFFICE IS CLONIDINE, IT WAS FILLED #180 FOR 90 DAYS 12-08-18. SHE STATES FAR SHE KNOWS SHE IS TAKING THIS. I LEFT IT ON THE MED REC AT THIS TIME AND WROTE THE INFORMATION DOWN FOR THE PATIENT TO CHECK AT HOME AND THEN DISCUSS WITH DR. MILLER. SHE STATES THE MED THAT WAS STOPPED FROM [facility] WAS ONLY FILLED FOR 30 DAYS AND SEVERAL MONTHS AGO, AFTER MUCH DISCUSSION WE BELIEVE IT WAS THE AMIODARONE THAT WAS FILLED IN JUNE. IT IS NOT ON THE MED REC.
[2019-01-10] MEDS: hydrALAZINE (APESOLINE) 20 MG/ML VIAL IV PRN ×2 (13:20→20:46)
[2019-01-10] MEDS: HYDROcodone/APAP 5 MG/325 MG (LORTAB) TAB PO PRN ×2 (13:20→20:48)
[2019-01-10] MEDS: LEVOFLOXACIN 750 MG TAB (LEVAQUIN) PO SCH (17:43)
[2019-01-10] MEDS ORDERED: ENOXAPARIN 100 MG/1 ML (LOVENOX) SYR SC SCH (22:00)
[2019-01-11] VITALS (19 sets, daily range): BP systolic 140–186; BP diastolic 62–103
[2019-01-11] MEDS: cefTRIAXone 2,000 MG/SWFI 20 ML IV PUSH IV SCH ×4 (00:28→13:06)
[2019-01-11] MEDS: inSUlin ASPART (NovoLOG) 1 UNIT/0.01 ML (CHARGE PER UNIT) SC SCH ×5 (00:29→20:37)
[2019-01-11] MEDS: HYDROcodone/APAP 5 MG/325 MG (LORTAB) TAB PO PRN ×2 (01:25→06:06)
[2019-01-11 03:37] LABS: BASOPHILS % (AUTO) 0 % (0-10); EOSINOPHILS # (AUTO) 0.1 10^3/uL (0.0-0.3); EOSINOPHILS % (AUTO) 2 % (0-10); HEMATOCRIT 28 % (35-52); HEMOGLOBIN 8.5 G/DL (11.5-16.0); LYMPHOCYTES # (AUTO) 0.9 X 10^3 (1.0-4.0); LYMPHOCYTES % (AUTO) 13 % (12-44); MEAN CORPUSCULAR HEMOGLOBIN 27 PG (25-34); MEAN CORPUSCULAR HGB CONC 31 G/DL (32-36); MEAN CORPUSCULAR VOLUME 87 FL (80-99); MEAN PLATELET VOLUME 11.6 FL (7.4-10.4); MONOCYTES # (AUTO) 0.4 X 10^3 (0.0-1.0); MONOCYTES % (AUTO) 6 % (0-12); NEUTROPHILS # (AUTO) 5.2 X 10^3 (1.8-7.8); NEUTROPHILS % (AUTO) 79 % (42-75); PLATELET COUNT 127 10^3/uL (130-400); RED CELL DISTRIBUTION WIDTH 14.1 % (10.0-14.5); WHITE BLOOD COUNT 6.6 10^3/uL (4.3-11.0)
[2019-01-11 04:01] LABS: CREATININE SERUM 1.36 MG/DL (0.60-1.30); PHOSPHORUS 2.2 MG/DL (2.3-4.7); POTASSIUM 4.2 MMOL/L (3.6-5.0)
[2019-01-11] MEDS: FUROSEMIDE 40 MG/4 ML INJ (LASIX) IV SCH ×3 (04:01→20:36)
[2019-01-11] MEDS: MAGNESIUM 1 GM/100 ML IVPB 100 ML IV SCH (06:06)
[2019-01-11] MEDS: POTASSIUM CL 10MEQ/50ML IVPB 50 ML IV SCH (06:06)
[2019-01-11] MEDS: KCL 20 MEQ TAB (K-DUR) PO SCH (06:07)
[2019-01-11] MEDS: RT-ALBUTEROL/IPRATROPIUM 3 ML (DUONEB) VIAL INH SCH ×4 (06:53→22:03)
--- NOTE | 2019-01-11 07:16 | Diagnostic Imaging Report ---
INDICATION: Shortness fair, heart failure, diabetes. TECHNIQUE: Single view chest 2:07 AM. CORRELATION STUDY: 01/10/2019 FINDINGS: Cardiac enlargement persists. There is presence of pulmonary vascular congestion and perihilar edema. Perhaps slightly less compared to the prior study. A loop recorder device over the left heart. Scattered areas of pulmonary parenchymal densities likely component of edema. Superimposed infiltrate considered less likely. IMPRESSION: 1. Findings of congestive heart failure. Perhaps less severe from one day earlier. Pulmonary parenchymal densities may reflect edema versus infiltrate. Dictated by: Dictated on workstation # [id number]
[2019-01-11] MEDS: SENNA W/DOCUSATE (SENOKOT S) TABLET PO SCH ×2 (08:19→20:38)
[2019-01-11] MEDS: APIXABAN 5 MG (ELIQUIS) TABLET PO SCH ×2 (08:19→20:38)
[2019-01-11] MEDS ORDERED: SENNA W/DOCUSATE (SENOKOT S) TABLET PO PRN (09:00)
[2019-01-11] MEDS ORDERED: CYCLOBENZAPRINE 10 MG (FLEXERIL) TAB PO PRN (10:45)
[2019-01-11] MEDS ORDERED: HYDROcodone/APAP 10 MG/325 MG (LORTAB) TAB PO PRN (10:45)
[2019-01-11] MEDS: GABAPENTIN 600 MG (NEURONTIN) TAB PO SCH ×2 (13:07→20:38)
--- NOTE | 2019-01-11 13:50 | Progress Note - Hospitalist ---
[facility] [place] [facility] 01/11/19 1350: Subjective HPI/CC On Admission Date Seen by Provider: Jan 11, 2019 Time Seen by Provider: 07:26 Chief complaint: SOB HPI: This is a 63yoWF who is supposed to use night-time oxygen and CPAP noncompliant with both, who presented to the ER with SOB, found to have volume overload on chest X-ray prompting cardiology management of the elevated BNP requiring IV steroids for exacerbation of COPD. Chest pain has improved but she did require a piedra catheter because any movement caused the chest pain to worsen. She is currently on Vapotherm, will require inpatient ICU stay for now, Creatinine remains stable at 1.59, PLTs 116, and ABG shows much improved 7.42/38/93 today. May need BiPAP at night. Subjective/Events-last exam Pt reports feeling better today but still having trouble with her breathing. She does not feel short of breath while sitting, but she ahs not been up to move around and see if she is short of breath with exertion. She states she has not had the chest pain she had been having previously. She was able to eat her breakfast, but has not had a bowel movement since being in the hospital. She denies feeling feverish as well and states her headache has been better as well. Her BUN 24 and creatinine 1.36 are slightly improved from yesterday. Focused Exam Lactate Level 01/09/19 17:20: Lactic Acid Level 0.91 Respiratory: Chest Non Tender, Normal Breath Sounds, No Accessory Muscle Use, No Respiratory Distress Cardiovascular: Regular Rate, Rhythm, No Gallop, No Murmur, Normal Peripheral Pulses Objective Exam Vital Signs Vital Signs Date Time Temp Pulse Resp B/P (MAP) Pulse Ox O2 Delivery O2 Flow Rate FiO2 01/11/19 13:09 Nasal Cannula 6.00 01/11/19 12:00 99 23 173/78 (109) 97 01/11/19 12:00 37.3 01/11/19 12:00 50 Capillary Refill : Less Than 3 Seconds General Appearance: No Apparent Distress, WD/WN Neck: Full Range of Motion, Normal Inspection Respiratory: Chest Non Tender, Lungs Clear, Normal Breath Sounds, No Accessory Muscle Use, No Respiratory Distress Cardiovascular: Regular Rate, Rhythm, No Edema, No Gallop, No Murmur, Normal Peripheral Pulses Extremity: Normal Inspection, Non Tender, No Calf Tenderness, No Pedal Edema Neurologic/Psychiatric: Alert, Oriented x3, No Motor/Sensory Deficits, Normal Mood/Affect Skin: Normal Color, Warm/Dry Results/Procedures Lab Laboratory Tests 01/11/19 02:55 Patient resulted labs reviewed. Assessment/Plan Assessment and Plan Assess & Plan/Chief Complaint Assessment: Shortness of Breath Hypertension Heart failure Diabetes Acute on Chronic Kidney Injury Plan: Vapotherm nasal canula to maintain O2 saturation above 90%, discontinue to nasal cannula if saturation remains normal with decreased Vapotherm settings DuoNeb treatments q 4-6hrs DVT prophylaxis Hypertension management Diabetic management Transfer to 4th floor Med/Surg today Clinical Quality Measures DVT/VTE Risk/Contraindication: Risk Factor Score Per Nursin RFS Level Per Nursing on Admit: 4+=Very High SHANAE ESCOBEDO DO 01/11/19 2014: Subjective Subjective/Events-last exam Pt doing much better Transferring to the floor today Creatinine 1.36 Vapotherm but doing much better Home meds were restarted Accu checks Ac and HS will be restarted along with her home dose of Levemir Denies any pain Piedra catheter in place due to SOB Review of Systems General: Fatigue Pulmonary: Dyspnea Objective Exam General Appearance: No Apparent Distress, WD/WN, Chronically ill Respiratory: Lungs Clear, Decreased Breath Sounds Cardiovascular: Regular Rate, Rhythm Neurologic/Psychiatric: Alert, Oriented x3, No Motor/Sensory Deficits, Normal Mood/Affect Assessment/Plan Assessment and Plan Assess & Plan/Chief Complaint Tx to 4th Home meds Insulin Steroids Vapotherm Diagnosis/Problems Diagnosis/Problems (1) Hypoxia Status: Acute (2) Chest pain Status: Acute (3) Respiratory failure Status: Acute (4) BiPAP (biphasic positive airway pressure) dependence (5) COPD (chronic obstructive pulmonary disease) (6) Acute renal insufficiency Status: Acute (7) Diabetes mellitus, type 2 Status: Chronic Qualifiers: Qualified Codes: E11.9 - Type 2 diabetes mellitus without complications; Z79.4 - tank terminal gauger (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) use of insulin (8) CKD (chronic kidney disease) Status: Chronic (9) A-fib Qualifiers: Qualified Codes: I48.91 - Unspecified atrial fibrillation (10) GERD (gastroesophageal reflux disease) Status: Chronic (11) HTN (hypertension) Status: Chronic Qualifiers: Qualified Codes: I10 - Essential (primary) hypertension (12) HLD (hyperlipidemia) Status: Chronic Qualifiers: Qualified Codes: E78.5 - Hyperlipidemia, unspecified Supervisory-Addendum Brief Verification & Attestation Participated in pt care: history, MDM, physical Personally performed: exam, history, MDM, supervision of care Care discussed with: Medical Student Procedures: n/a Results interpretation: Verified all documentation Verification and Attestation of Medical Student E/M Service A medical student performed and documented this service in my presence. I reviewed and verified all information documented by the medical student and made modifications to such information, when appropriate. I personally performed the physical exam and medical decision making. Shanae Escobedo, Jan 11, 2019,20:[address] [facility] Jan 11, 2019 13:50 SHANAE ESCOBEDO DO Jan 11, 2019 20:14
--- NOTE | 2019-01-11 15:10 | NUR ---
Pt to room 424. Report received from CB Lizama.
[2019-01-11] MEDS: DRONEDARONE TABLET 400 MG TABLET PO SCH (20:37)
[2019-01-11] MEDS: cloNIDine 0.1 MG (CATAPRES) TAB PO SCH (20:38)
[2019-01-11] MEDS: PRIMIDONE 50 MG TAB (MYSOLINE) PO SCH (20:38)
[2019-01-11] MEDS: lisINopril 20 MG (PRINIVIL) TABLET PO SCH (20:38)
[2019-01-11] MEDS: FENOFIBRATE 134 MG (LOFIBRA) CAPSULE PO SCH (21:44)
[2019-01-11] MEDS: methylPREDNISolone 40 MG/ML (Solu-MEDROL) VIAL IV SCH ×2 (21:44→23:55)
[2019-01-12] VITALS (7 sets, daily range): BP systolic 110–178; BP diastolic 54–87
[2019-01-12] MEDS: RT-ALBUTEROL/IPRATROPIUM 3 ML (DUONEB) VIAL INH SCH ×7 (00:15→22:26)
[2019-01-12] MEDS: inSUlin ASPART (NovoLOG) 1 UNIT/0.01 ML (CHARGE PER UNIT) SC SCH ×3 (06:07→21:11)
--- NOTE | 2019-01-12 06:10 | Diagnostic Imaging Report ---
INDICATION: Shortness of breath, congestive heart failure Portable chest 5:44 AM There is a loop recorder projecting over the left medial chest. Heart size and pulmonary vascularity are normal. Lungs are clear. There are no effusions or pneumothoraces. IMPRESSION: No acute abnormalities in the chest Dictated by: Dictated on workstation # [id number]
[2019-01-12 06:41] LABS: BASOPHILS % (AUTO) 0 % (0-10); EOSINOPHILS % (AUTO) 0 % (0-10); HEMATOCRIT 29 % (35-52); HEMOGLOBIN 8.8 G/DL (11.5-16.0); LYMPHOCYTES # (AUTO) 0.3 X 10^3 (1.0-4.0); LYMPHOCYTES % (AUTO) 7 % (12-44); MEAN CORPUSCULAR HEMOGLOBIN 26 PG (25-34); MEAN CORPUSCULAR HGB CONC 30 G/DL (32-36); MEAN CORPUSCULAR VOLUME 86 FL (80-99); MEAN PLATELET VOLUME 11.1 FL (7.4-10.4); MONOCYTES # (AUTO) 0.1 X 10^3 (0.0-1.0); MONOCYTES % (AUTO) 1 % (0-12); NEUTROPHILS # (AUTO) 4.5 X 10^3 (1.8-7.8); NEUTROPHILS % (AUTO) 91 % (42-75); PLATELET COUNT 151 10^3/uL (130-400); RED CELL DISTRIBUTION WIDTH 14.3 % (10.0-14.5); WHITE BLOOD COUNT 4.9 10^3/uL (4.3-11.0)
[2019-01-12] MEDS: methylPREDNISolone 40 MG/ML (Solu-MEDROL) VIAL IV SCH ×2 (06:56→21:10)
[2019-01-12 07:07] LABS: CALCIUM 9.9 MG/DL (8.5-10.1); CREATININE SERUM 1.62 MG/DL (0.60-1.30); MAGNESIUM 2.2 MG/DL (1.6-2.4); PHOSPHORUS 3.2 MG/DL (2.3-4.7); POTASSIUM 4.4 MMOL/L (3.6-5.0)
[2019-01-12 07:23] LABS: HYPOCHROMASIA SLIGHT; LYMPHOCYTES % (MANUAL) 3 %; MONOCYTES % (MANUAL) 2 %; NEUTROPHILS % (MANUAL) 95 %; POLYCHROMASIA SLIGHT
[2019-01-12] MEDS ORDERED: inSUlin (REGULAR) HUMAN 1 UNIT/0.01 ML (CHARGE PER UNIT) SC NR (07:39)
[2019-01-12] MEDS: POTASSIUM CL 10MEQ/50ML IVPB 50 ML IV SCH (07:40)
[2019-01-12] MEDS: KCL 20 MEQ TAB (K-DUR) PO SCH (07:41)
[2019-01-12] MEDS: MAGNESIUM 1 GM/100 ML IVPB 100 ML IV SCH (07:42)
[2019-01-12] MEDS ORDERED: RIVAROXABAN 20 MG TABLET (XARELTO) PO SCH (09:00)
[2019-01-12] MEDS ORDERED: FLU QUADRIvalent (5+ YOA) 2019-2020 (AFLURIA) 0.5 ML IM ONE ×2 (09:00→15:54)
[2019-01-12] MEDS: cloNIDine 0.1 MG (CATAPRES) TAB PO SCH ×2 (10:03→21:09)
[2019-01-12] MEDS: FUROSEMIDE 40 MG/4 ML INJ (LASIX) IV SCH ×2 (10:03→21:10)
[2019-01-12] MEDS: ISOSORBIDE MONONITRATE 60 MG (IMDUR) TAB PO SCH (10:04)
[2019-01-12] MEDS: GABAPENTIN 600 MG (NEURONTIN) TAB PO SCH ×2 (10:04→21:11)
[2019-01-12] MEDS: SENNA W/DOCUSATE (SENOKOT S) TABLET PO SCH ×2 (10:04→21:09)
[2019-01-12] MEDS: lisINopril 20 MG (PRINIVIL) TABLET PO SCH ×2 (10:04→21:09)
[2019-01-12] MEDS: ASPIRIN E.C. 81 MG (ECOTRIN) TAB PO SCH (10:05)
[2019-01-12] MEDS: DRONEDARONE TABLET 400 MG TABLET PO SCH ×2 (10:05→21:09)
[2019-01-12] MEDS: PANTOPRAZOLE 40 MG (PROTONIX) TAB PO SCH (10:06)
[2019-01-12] MEDS: amLODIPine 10 MG (NORVASC) TAB PO SCH (10:06)
[2019-01-12] MEDS: FUROSEMIDE 40 MG (LASIX) TAB PO SCH (10:08)
--- NOTE | 2019-01-12 10:10 | Cardiology Progress Note ---
Subjective Date Seen by Provider: Jan 12, 2019 Time Seen by Provider: 08:25 Subjective/Events-last exam Patient is sitting up in bed, states breating improved. Denies any chest pain or dizziness. Review of Systems General: No Chills, No Night Sweats, No Fatigue, No Malaise, No Appetite, No Other HEENT: No Head Aches, No Visual Changes, No Eye Pain, No Ear Pain, No D ysphasia, No Sinus Congestion, No Post Nasal Drip, No Sore Throat, No Other Pulmonary: Dyspnea; No Cough, No Pleuritic Chest Pain, No Other Cardiovascular: No: Chest Pain, Palpitations, Orthopnea, Paroxysmal Noc. Dyspnea, Edema, Lt Headedness, Other Focused Exam Lactate Level 01/09/19 17:20: Lactic Acid Level 0.91 Objective-Cardiology Exam Last Set of Vital Signs Vital Signs 01/11/19 01/12/19 01/12/19 12:00 12:00 14:06 Temp 35.9 Pulse 136 Resp 18 B/P (MAP) 121/78 (92) Pulse Ox 97 O2 Delivery High Flow N/C O2 Flow Rate 3.00 FiO2 50 Capillary Refill : Less Than 3 Seconds I&O l Intake and Output 01/12/19 00:00 Intake Total 1450 ml Output Total 3400 ml Balance -1950 ml Intake Oral 1450 ml Output Urine Total 3400 ml General: Alert, Oriented X3, Cooperative HEENT: Atraumatic, PERRLA Neck: Supple, No JVD, No Thyromegaly Lungs: Other (diminished breath sounds) Heart: Regular Rate, Normal S1, Normal S2, No Murmurs Abdomen: Normal Bowel Sounds, Soft, No Tenderness Extremities: No Clubbing, Other (+1 edema) Skin: No Rashes, No Significant Lesion Neuro: Normal Speech, Cranial Nerves 3-12 NL Psych/Mental Status: Mental Status NL, Mood NL Results Lab Laboratory Tests 01/12/19 06:08 A/P-Cardiology Admission Diagnosis Acute respiratory failure Acute exacerbation of COPD Congestive heart failure, acute left ventricular diastolic dysfunction Coronary artery disease Assessment/Plan Acute respiratory failure,acute exacerbation of COPD and congestive heart failure,improving, last echo was done in July 2018 showing normal left ventricular systolic function with ejection fraction 55-65 percent, left atrial dilatation, moderate mitral regurgitation and pulmonary hypertension with PA pressure of 40 mmHg. Continue on current medications and continue to monitor. Paroxysmal atrial fibrillation, history of electrical cardioversion, currently in sinus rhythm. Sinus node dysfunction, history of severe bradycardia, currently heart rate is well-controlled, continue to monitor Mild elevation in troponin level, no active chest pain, no acute EKG changes, probably due to hypoxemia and small vessel disease. Medical therapy is recommended continue to monitor Type II myocardial infarction secondary to hypoxemia, last cardiac catheterization as described below Coronary artery disease, history of stent placement 2 to the LAD. In August 2013 cardiac cath revealed patent stents to LAD, known to have Taxus 320 mm stent in the mid LAD, proximal to that there was a stent placed in 2011 which is 312 mm Ion stent. Both are patent with 40-50 percent in-stent restenosis. Secondary branch had 90 percent stenosis at the ostium. Small artery, not amendable to intervention. Another cardiac catheterization February 2015 showing patent stents in the proximal LAD with 50 percent stenosis beyond the stent and 50 percent stenosis at the midportion of the LAD small vessel disease distally, moderate 40-50 percent stenosis in the right coronary artery with multiple segment of the proximal, mid and distal portion. Cardiac catheterization done March 05, 2017 revealed severe LAD stenosis beyond the previously known stent 3.0. Successful primary stenting using 3.08 mm ALPINE expanded to 3.5 with excellent results, balloon for in-stent restenosis also was made. Most recent cardiac catheterization done March 09, 2018 revealed patent stent with small vessel disease, no intervention required. continue to monitor [id number] score of 4, yearly risk of stroke without oral anticoagulation is 4 percent. Maintained on Xarelto 15mg. Renal insufficiency, continue to monitor renal function. Hypertension, continue on current medication monitor blood pressure Renal arterial duplex done July 2015 revealed proximal right renal artery not evaluated, other segments of the left renal artery demonstrated no evidence of significant stenosis, continue to monitor Hyperlipidemia, Lipitor was increased recently. Continue to monitor Obstructive sleep apnea, using C Pap, using oxygen as needed Nonobstructive carotid artery stenosis per carotid duplex done in February 2018, continue to monitor. Diabetes mellitus-managed by primary care physician Chronic pain, followed and managed by primary care physician Obesity, BMI is 37, discussed diet and exercise for weight loss. Patient was seen and evaluated with Kaela, examination performed, management plan was discussed, agree with the current scribed note, I made few changes to the note using Italic font Patient is laying down in bed, still having some shortness of breath. Overall reporting mild improvement, currently in sinus rhythm. Continue to monitor heart rate. Elevation in troponin is subtle, probably secondary to hypoxemia and small vessel disease, medical therapy is recommended. Monitor blood pressure and lipids. No changes are recommended Clinical Quality Measures DVT/VTE Risk/Contraindication: Risk Factor Score Per Nursin RFS Level Per Nursing on Admit: 4+=Very High Supervisory-Addendum Brief Supervisory Addendum Participated in pt care: history, MDM, physical Personally performed: exam, history, MDM Care discussed with: KAELA HEAD Jan 12, 2019 10:10 am BOOM MILLER MD Jan 12, 2019 2:56 pm
--- NOTE | 2019-01-12 10:30 | Progress Note - Hospitalist ---
[facility] [place] 01/12/19 1030: Subjective HPI/CC On Admission Date Seen by Provider: Jan 12, 2019 Time Seen by Provider: 08:45 Chief complaint: SOB HPI: This is a 63yoWF who is supposed to use night-time oxygen and CPAP noncompliant with both, who presented to the ER with SOB, found to have volume overload on chest X-ray prompting cardiology management of the elevated BNP requiring IV steroids for exacerbation of COPD. Chest pain has improved but she did require a piedra catheter because any movement caused the chest pain to worsen. She is currently on Vapotherm, will require inpatient ICU stay for now, Creatinine remains stable at 1.59, PLTs 116, and ABG shows much improved 7.42/38/93 today. May need BiPAP at night. Subjective/Events-last exam * Pt reports not having any shortness of breath after being taken off Vapotherm and placed on 3L of O2 nasal cannula. * Pt reports a cough with deep breaths or prolonged talking >20mins * She states she was very wobbly in her knees yesterday when trying to stand and was unable to do so without a lot of assistance * She has not had a bowel movement since being in the hospital * She still has her urinary catheter in place * She did report some palpitations yesterday, but no chest pain * She reports having her best night sleep since being in the hospital last night Review of Systems General: No Chills, No Fatigue Pulmonary: No Dyspnea; Cough Cardiovascular: Palpitations; No: Chest Pain, Lt Headedness Gastrointestinal: No: Nausea, Vomiting Neurological: Weakness; No: Numbness Focused Exam Lactate Level 01/09/19 17:20: Lactic Acid Level 0.91 Objective Exam Vital Signs Vital Signs Date Time Temp Pulse Resp B/P (MAP) Pulse Ox O2 Delivery O2 Flow Rate FiO2 01/12/19 08:01 36.9 79 16 151/87 (108) 97 NIV CPAP 01/12/19 06:46 30.00 01/11/19 12:00 50 Capillary Refill : Less Than 3 Seconds General Appearance: WD/WN, Mild Distress Neck: Full Range of Motion, Normal Inspection Respiratory: Chest Non Tender, No Accessory Muscle Use, No Respiratory Distress, Wheezing (Minor in bilateral lower lungs) Cardiovascular: Regular Rate, Rhythm, No Gallop, No Murmur, Normal Peripheral Pulses Extremity: Normal Inspection, No Calf Tenderness, No Pedal Edema Neurologic/Psychiatric: Alert, Oriented x3, No Motor/Sensory Deficits, Normal Mood/Affect Skin: Normal Color, Warm/Dry Results/Procedures Lab Laboratory Tests 01/12/19 06:08 Patient resulted labs reviewed. Assessment/Plan Assessment and Plan Assess & Plan/Chief Complaint Assessment: Shortness of Breath Hypertension Heart failure Diabetes Acute on Chronic Kidney Injury Plan: Continue nasal cannula and decrease O2 if saturation remains normal DuoNeb treatments q 4-6hrs DVT prophylaxis Hypertension management Diabetic management Clinical Quality Measures DVT/VTE Risk/Contraindication: Risk Factor Score Per Nursin RFS Level Per Nursing on Admit: 4+=Very High SHANAE ESCOBEDO DO 01/12/192101: Subjective Subjective/Events-last exam Blood sugars extremely elevated at 600 so I gave her 30 units of regular insulin. Decreasing Solumedrol to 40 Mg IV Q12hrs instead of Q6hrs. Will discontinue catheter. PT and OT and rehab evaluation. Will initiate Senna BID. Nebulizer treatments maintained. Off Vapotherm now. Overall responding to treatment. Reviewed meds and labs. Objective Exam General Appearance: No Apparent Distress, WD/WN, Chronically ill Respiratory: No Accessory Muscle Use, No Respiratory Distress, Wheezing (Minor in bilateral lower lungs) Cardiovascular: Regular Rate, Rhythm Neurologic/Psychiatric: Alert, Oriented x3, No Motor/Sensory Deficits, Normal Mood/Affect Assessment/Plan Assessment and Plan Assess & Plan/Chief Complaint AECOPD DM OOC due to steroids Diagnosis/Problems Diagnosis/Problems (1) Respiratory failure Status: Acute (2) Hyperkalemia Status: Acute (3) Hyperphosphatemia Status: Acute (4) DVT prophylaxis Status: Acute (5) Elevated AST (SGOT) Status: Acute (6) COPD (chronic obstructive pulmonary disease) (7) BiPAP (biphasic positive airway pressure) dependence (8) Acute renal insufficiency Status: Acute (9) Diabetes mellitus, type 2 Status: Chronic Qualifiers: Qualified Codes: E11.9 - Type 2 diabetes mellitus without complications; Z79.4 - long-term (current) use of insulin (10) CKD (chronic kidney disease) Status: Chronic (11) A-fib Qualifiers: Qualified Codes: I48.91 - Unspecified atrial fibrillation (12) GERD (gastroesophageal reflux disease) Status: Chronic (13) HTN (hypertension) Status: Chronic Qualifiers: Qualified Codes: I10 - Essential (primary) hypertension (14) HLD (hyperlipidemia) Status: Chronic Qualifiers: Qualified Codes: E78.5 - Hyperlipidemia, unspecified Supervisory-Addendum Brief Verification & Attestation Participated in pt care: history, MDM, physical Personally performed: exam, history, MDM, supervision of care Care discussed with: Medical Student Procedures: n/a Results interpretation: Verified all documentation Verification and Attestation of Medical Student E/M Service A medical student performed and documented this service in my presence. I reviewed and verified all information documented by the medical student and made modifications to such information, when appropriate. I personally performed the physical exam and medical decision making. Shanae Escobedo, Jan 12, 2019,21:[address] [facility] Jan 12, 2019 10:30 SHANAE ESCOBEDO DO Jan 12, 2019 21:02
--- NOTE | 2019-01-12 11:55 | Physical Therapy Evaluation ---
PT Evaluation-General Medical Diagnosis Admission Date Jan 10, 2019 at 08:09 Medical Diagnosis: SOA; heart failure Onset Date: Jan 12, 2019 Therapy Diagnosis Therapy Diagnosis: abnormal gait Height/Weight Height (Feet): 5 Height (Inches): 4.00 Weight (Pounds): 219 Weight (Ounces): 1.0 Precautions Precautions/Isolations: Fall Prevention, Standard Precautions Weight Bear Status Right Lower Extremity: Right Weight Bearing/Tolerated Left Lower Extremity: Left Weight Bearing/Tolerated Referral Physician: Jessica Reason for Referral: Evaluation/Treatment Medical History Pertinent Medical History: Atrial Fib, CAD, DM, GERD, HTN Current History Pt admitted from ER with complaints of SOA over past few days. Agrees to PT. Reviewed History: Yes Social History Home: Single Level Current Living Status: Spouse Entry Into Home: Stairs With Railing Prior Prior Level of Function SCALE: Activities may be completed with or without assistive devices. 3-Wljvyuvjzp-[id number] completes the activity by him/herself with no assistance from a helper. 5-Set-up or Clean-up Assistance-helper sets up or cleans up; patient completes activity. Jay assists only prior to or following the activity. 4-Supervision or Touching Assistance-helper provides verbal cues and/or touching/steadying and/or contact guard assistance as patient completes activity. Assistance may be provided throughout the activity or intermittently. 3-Partial/Moderate Assistance-helper does LESS THAN HALF the effort. Jay lifts, holds or supports trunk or limbs, but provides less than half the effort. 2-Substantial/Maximal Assistance-helper does MORE THAN HALF the effort. Jay lifts or holds trunk or limbs and provides more than half the effort. 8-Dzfbqzigd-qlpshz does ALL the effort. Patient does none of the effort to complete the activity. Or, the assistance of 2 or more helpers is required for the patient to complete the activity. If activity was not attempted, code reason: 7-Patient Refused. 9-Not Applicable-not attempted and the patient did not perform the activity before the current illness, exacerbation or injury. 10-Not Attempted due to Environmental Limitations-(lack of equipment, weather restraints, etc.). 88-Not Attempted due to Medical Conditions or Safety Concerns. Bed Mobility: 6 Transfers (B,C,W/C): 6 Gait: 6 Stairs: 6 Indoor Mobility (Ambulation): Independent Stairs: Independent Pt able to drive and ambulate community distances. PT Evaluation-Current Subjective Agreeable . Just showered and is tired. Objective Patient Orientation: Person, Place, Time, Situation Problem Solving: Good ROM/Strength ROM Lower Extremities B LE ROM WNL Strength Lower Extremities strength is grossly 4-/5 throughout Integumentary/Posture Integumentary refer to nursing notes. Bowel Incontinence: No Bladder Incontinence: No Posture symmetrical and upright. Neuromuscular (Tone, Coordination, Reflexes) intact and functional Sensory Vision: Functional Hearing: Functional Sensation Right Lower Extremit: Intact Sensation Left Lower Extremity: Intact Transfers Sit to Stand (QC): 3 (min assist to stand up) Gait Does the Patient Walk?: Yes Mode of Locomotion: Walk Anticipated Mode of Locomotion: Walk Gait Assistive Device: FWW Comments/Gait Description Pt ambulated x 15 ft with FWW post shower with min assist and cues for safety; pt tired and "shaky" as she walked due to decreased functional strength and functional activity tolerance. Balance Sitting Static: Normal Sitting Dynamic: Normal Standing Static: Fair Standing Dynamic: Fair Assessment/Needs Pt presents with gross functional weakness post illness and will benefit from skilled PT to address strength and activity tolerance limits to allow her to return home as before. Rehab Potential: Good PT Residential Goals Machine Pie Maker Goals PT Residential Goals Time Frame: Jan 17, 2019 Sit to Lying (QC): 6 Lying-Sitting on Side/Bed(QC): 6 Sit to Stand (QC): 6 Roll Left to Right (QC): 6 Chair/Wpe-oa-Kiwgm Xfer(QC): 6 Car Transfer (QC): 6 Walk 10 feet (QC): 6 Walk 50ft with 2 Turns (QC): 6 Walk 150 ft (QC): 6 PT Plan Problem List Problem List: Activity Tolerance, Functional Strength, Safety, Balance, Gait, Transfer, Bed Mobility Treatment/Plan Treatment Plan: Continue Plan of Care Treatment Plan: Bed Mobility, Education, Functional Activity Diane, Functional Strength, Gait, Safety, Therapeutic Exercise, Transfers Frequency: 6 times per week Estimated Hrs Per Day: .25 hour per day Patient and/or Family Agrees t: Yes Safety Risks/Education Patient Education: Safety Issues Teaching Recipient: Patient Teaching Methods: Discussion Response to Teaching: Reinforcement Needed Time/GCodes Time In: 1135 Time Out: 1153 Total Billed Treatment Time: 23 Total Billed Treatment visit EVM 23 BONG ARNOLD PT Jan 12, 2019 11:55
--- NOTE | 2019-01-12 13:17 | Occupational Therapy Eval ---
OT Evaluation-General/PLF Medical Diagnosis Admission Date Jan 10, 2019 at 08:09 Medical Diagnosis: SOA; heart failure Onset Date: Jan 10, 2019 Therapy Diagnosis Therapy Diagnosis: impaired ADLs and functional mobility Height/Weight Height (Feet): 5 Height (Inches): 4.00 Weight (Pounds): 219 Weight (Ounces): 1.0 Precautions Precautions/Isolations: Fall Prevention, Standard Precautions Safety Interventions: None Referral Physician: Jessica Referral Reason: Evaluation/Treatment Medical History Pertinent Medical History: Atrial Fib, CAD, COPD, DM, GERD, HTN Current History Per H&P: "Pt presented to the ER after having trouble breathing for the past 3-4 days. She states of Wednesday she started noticing trouble breathing that has gotten worse over the weekend and is associated with a headache and chest pain that is like a pressure/bruised type feeling when she breathes in deeply. She becker d a little blurry vision on Wednesday (2 days ago) and has a feeling of feverish. She denies any chills, nausea, vomiting, diarrhea, constipation. She came to the ER on home oxygen at 4L nasal cannula and her initial O2 saturation was in the 70s, but was placed on Vapotherm upon arrival in ER which increased her saturation to 94%. She does complain of a cough that is non productive. She is currently in the ICU on vapotherm 30L at 60% nasal cannula and saturating in mid 90s at rest dropping to 80s with activity." Reviewed History: Yes Social History Home: Single Level Current Living Status: Spouse Entry Into Home: Stairs Without Railing Steps Into Home: 3 ADL-Prior Level of Function SCALE: Activities may be completed with or without assistive devices. 3-Oejyxeqmat-[id number] completes the activity by him/herself with no assistance from a helper. 5-Set-up or Clean-up Assistance-helper sets up or cleans up; patient completes activity. Callao assists only prior to or following the activity. 4-Supervision or Touching Assistance-helper provides verbal cues and/or touching/steadying and/or contact guard assistance as patient completes activity. Assistance may be provided throughout the activity or intermittently. 3-Partial/Moderate Assistance-helper does LESS THAN HALF the effort. Callao lifts, holds or supports trunk or limbs, but provides less than half the effort. 2-Substantial/Maximal Assistance-helper does MORE THAN HALF the effort. Callao lifts or holds trunk or limbs and provides more than half the effort. 6-[id number]-[id number] does ALL the effort. Patient does none of the effort to complete the activity. Or, the assistance of 2 or more helpers is required for the patient to complete the activity. If activity was not attempted, code reason: 7-Patient Refused. 9-Not Applicable-not attempted and the patient did not perform the activity before the current illness, exacerbation or injury. 10-Not Attempted due to Environmental Limitations-(lack of equipment, weather restraints, etc.). 88-Not Attempted due to Medical Conditions or Safety Concerns. ADL PLOF Comments Pt reports she was independent with ADLs prior to hospitalization including bathing, dressing, and cooking. Pt reports she has a sock aid at home that she uses on occasion to assist with donning socks. Pt reports she is supposed to be on oxygen during the night but she hadn't been using it. Self Care: Independent Functional Cognition: Independent DME/Equipment: Bath Bench, Tub/Shower DME/Equipment Comments Pt denies using walker, w/c or other DME prior to hospitalization. 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 Pt agreeable to OT evaluation on this date. No reports of pain during session. Mental Status/Objective Patient Orientation: Person, Place, Time, Situation Current Glasses/Contacts: Yes (reading) Hearing Aids: No Dentures/Partials: No Hand Dominance: Left Upper Extremity ROM grossly WFL, BUE shoulder flexion to approximately 160 degrees, pt able to reach behind her head with her hands Upper Extremity Coordination WFL thumb opposition to each finger. Upper Extremity Sensation Pt reported no changes in sensation Upper Extremity Strength 3+/5 MMT BUE ADL-Treatment Eating (QC): 6 (Pt able to open all containers and bring food to her mouth. Did not require assistance with task. ) On/Off Footwear (QC): 1 (Per pt report, she is unable to don/doff socks by herself. Reported that she had to have someone help her earlier in the day.) Other Treatments Pt upright in recliner at start of session. Pt's lunch arrived during tx. Pt and provided information about PLOF and home set up. Pt declined grooming activities/toileting stating she had already completed tasks earlier. Post OT session, pt upright in recliner, call light in reach, all needs met and present. Education OT Patient Education: Correct positioning, Progress toward Goal/Update tx plan, Purpose of tx/functional activities Teaching Recipient: Patient, Family Teaching Methods: Demonstration Response to Teaching: Verbalize Understanding OT Short Term Goals Short Term Goals 1=Demonstrate adherence to instructed precautions during ADL tasks. 2=Patient will verbalize/demonstrate understanding of assistive devices/modifications for ADL. 3=Patient will improve strength/tolerance for activity to enable patient to perform ADL's. OT Retirement Goals Retirement Goals Time Frame: Jan 19, 2019 Oral Hygiene (QC): 6 Shower/Bathe Self (QC): 6 Upper Body Dressing (QC): 6 Lower Body Dressing (QC): 6 On/Off Footwear (QC): 6 Toileting Hygiene (QC): 6 Toilet/Commode Transfer (QC): 6 1=Demonstrate adherence to instructed precautions during ADL tasks. 2=Patient will verbalize/demonstrate understanding of assistive devices/modifications for ADL. 3=Patient will improve strength/tolerance for activity to enable patient to perform ADL's. OT Education/Plan Problem List/Assessment Assessment: Decreased Activ Tolerance, Decreased UE Strength, Impaired I ADL's, Impaired Self-Care Skills Discharge Recommendations Plan/Recommendations: Continue POC Treatment Plan/Plan of Care Treatment,Training & Education: Yes Patient would benefit from OT for education, treatment and training to promote independence in ADL's, mobility, safety and/or upper extremity function for ADL's. Frequency: 5 times per week Estimated Hrs Per Day: .25 hour per day Rehab Potential: Good Time/GCodes Start Time: 12:55 Stop Time: 13:06 Total Time Billed (hr/min): 11 Billed Treatment Time 1, YOLA CARTER OT Jan 12, 2019 13:16
--- NOTE | 2019-01-12 14:20 | NUR ---
IRF Evaluation Order received to evaluate patient for the ARU. Chart review complete and findings discussed with Dr. Lopez - patient accepted for admission. RN and CM/SS notified. Thank you for this referral. Addendum: 01/12/19 at 1536 by JUNE Kelley HENRY Met with patient and spouse to discuss details specific to rehabilitation program. Patient is agreeable to required therapy regimen and admission. Anticipate admission, 01/13/19.
[2019-01-12] MEDS ORDERED: inSUlin ASPART (NovoLOG) 1 UNIT/0.01 ML (CHARGE PER UNIT) SC NR (15:45)
[2019-01-12] MEDS ORDERED: RIVAROXABAN 15 MG TABLET (XARELTO) PO SCH (17:00)
[2019-01-12] MEDS: LEVOFLOXACIN 750 MG TAB (LEVAQUIN) PO SCH (18:00)
[2019-01-12] MEDS ORDERED: MAGNESIUM OXIDE (MAG-OX)400 MG TAB PO SCH (21:00)
[2019-01-12] MEDS: FENOFIBRATE 134 MG (LOFIBRA) CAPSULE PO SCH (21:08)
[2019-01-12] MEDS: PRIMIDONE 50 MG TAB (MYSOLINE) PO SCH (21:09)
[2019-01-13] MEDS ORDERED: cefTRIAXone 2 GM IV (ROCEPHIN) VIAL ONE (01:18)
[2019-01-13] MEDS: cefTRIAXone 2,000 MG/SWFI 20 ML IV PUSH IV SCH ×2 (01:22)
[2019-01-13] MEDS: RT-ALBUTEROL/IPRATROPIUM 3 ML (DUONEB) VIAL INH SCH ×3 (02:21→10:54)
[2019-01-13 04:00] VITALS: BP 114/61
[2019-01-13 05:15] LABS: BASOPHILS % (AUTO) 0 % (0-10); EOSINOPHILS % (AUTO) 0 % (0-10); HEMATOCRIT 29 % (35-52); HEMOGLOBIN 8.9 G/DL (11.5-16.0); LYMPHOCYTES # (AUTO) 0.8 X 10^3 (1.0-4.0); LYMPHOCYTES % (AUTO) 7 % (12-44); MEAN CORPUSCULAR HEMOGLOBIN 27 PG (25-34); MEAN CORPUSCULAR HGB CONC 31 G/DL (32-36); MEAN CORPUSCULAR VOLUME 86 FL (80-99); MEAN PLATELET VOLUME 11.4 FL (7.4-10.4); MONOCYTES # (AUTO) 0.6 X 10^3 (0.0-1.0); MONOCYTES % (AUTO) 5 % (0-12); NEUTROPHILS # (AUTO) 10.6 X 10^3 (1.8-7.8); NEUTROPHILS % (AUTO) 88 % (42-75); PLATELET COUNT 213 10^3/uL (130-400); RED CELL DISTRIBUTION WIDTH 14.2 % (10.0-14.5); WHITE BLOOD COUNT 12.1 10^3/uL (4.3-11.0)
[2019-01-13 05:46] LABS: CALCIUM 9.4 MG/DL (8.5-10.1); CREATININE SERUM 2.75 MG/DL (0.60-1.30); MAGNESIUM 2.3 MG/DL (1.6-2.4); PHOSPHORUS 3.1 MG/DL (2.3-4.7); POTASSIUM 4.3 MMOL/L (3.6-5.0)
[2019-01-13] MEDS: MAGNESIUM 1 GM/100 ML IVPB 100 ML IV SCH (05:57)
[2019-01-13] MEDS: KCL 20 MEQ TAB (K-DUR) PO SCH (05:57)
[2019-01-13] MEDS: POTASSIUM CL 10MEQ/50ML IVPB 50 ML IV SCH (05:57)
[2019-01-13] MEDS: inSUlin ASPART (NovoLOG) 1 UNIT/0.01 ML (CHARGE PER UNIT) SC SCH ×2 (06:04→10:38)
[2019-01-13 08:00] VITALS: BP 144/64
--- NOTE | 2019-01-13 08:33 | Diagnostic Imaging Report ---
EXAMINATION: Single frontal view of the chest. INDICATION: Shortness of breath and heart failure. COMPARISON: Multiple priors, most recent performed on 01/12/2019. FINDINGS: Loop recorder again projects over the left medial chest. No focal consolidation. There is central vascular prominence, without overt edema. No pneumothorax or large pleural effusion. The cardiomediastinal silhouette is unchanged. No acute osseous abnormality. Cervical fusion hardware is again demonstrated. IMPRESSION: Unchanged appearance of the chest from yesterday's exam. There is persistent central vascular prominence, without overt edema. There has been overall marked improvement in previously demonstrated pulmonary edema demonstrated on 01/11/2019. Dictated by: Dictated on workstation # [id number]
[2019-01-13] MEDS: cloNIDine 0.1 MG (CATAPRES) TAB PO SCH (08:59)
[2019-01-13] MEDS: DRONEDARONE TABLET 400 MG TABLET PO SCH (08:59)
[2019-01-13] MEDS: ISOSORBIDE MONONITRATE 60 MG (IMDUR) TAB PO SCH (08:59)
[2019-01-13] MEDS: methylPREDNISolone 40 MG/ML (Solu-MEDROL) VIAL IV SCH (08:59)
[2019-01-13] MEDS: PANTOPRAZOLE 40 MG (PROTONIX) TAB PO SCH (08:59)
[2019-01-13] MEDS: ASPIRIN E.C. 81 MG (ECOTRIN) TAB PO SCH (08:59)
[2019-01-13] MEDS: amLODIPine 10 MG (NORVASC) TAB PO SCH (08:59)
[2019-01-13] MEDS: GABAPENTIN 600 MG (NEURONTIN) TAB PO SCH (08:59)
[2019-01-13] MEDS: SENNA W/DOCUSATE (SENOKOT S) TABLET PO SCH (08:59)
[2019-01-13] MEDS: lisINopril 20 MG (PRINIVIL) TABLET PO SCH (09:03)
--- NOTE | 2019-01-13 09:09 | NUR ---
PHARMACY WAS CALLED TO CLARIFY THE LASIX ORDERS -- PO OR IV?
[2019-01-13] MEDS: FUROSEMIDE 40 MG (LASIX) TAB PO SCH (09:54)
--- NOTE | 2019-01-13 10:58 | Discharge Summary ---
[facility] 01/13/19 1058: Diagnosis/Chief Complaint Date of Admission Jan 10, 2019 at 08:09 Date of Discharge Discharge Date: Jan 13, 2019 Admission Diagnosis Assessment: AECOPD Resp failure requiring Vapotherm and biPAP CRI Chest pain Plan: Monitor chest pain Appreciate Dr Serrano consultation ICU Vapotherm and biPAP Primary Care Obdulio Cabral MD Discharge Diagnosis (1) Respiratory failure Status: Acute (2) Hyperkalemia Status: Acute (3) Hyperphosphatemia Status: Acute (4) DVT prophylaxis Status: Acute (5) Elevated AST (SGOT) Status: Acute (6) COPD (chronic obstructive pulmonary disease) (7) BiPAP (biphasic positive airway pressure) dependence (8) Acute renal insufficiency Status: Acute (9) Diabetes mellitus, type 2 Status: Chronic (10) CKD (chronic kidney disease) Status: Chronic (11) A-fib (12) GERD (gastroesophageal reflux disease) Status: Chronic (13) HTN (hypertension) Status: Chronic (14) HLD (hyperlipidemia) Status: Chronic Discharge Summary Discharge Physical Exam Allergies: Coded Allergies: morphine (Verified Adverse Reaction, Severe, hallucination, 07/12/18) Vitals & I&Os Vital Signs Date Time Temp Pulse Resp B/P (MAP) Pulse Ox O2 Delivery O2 Flow Rate FiO2 01/13/19 09:30 36.1 01/13/19 08:00 Nasal Cannula 01/13/19 08:00 122 22 144/64 (90) 95 3.00 01/11/19 12:00 50 General Appearance: No Apparent Distress, WD/WN Respiratory: Chest Non Tender, No Accessory Muscle Use, No Respiratory Distress, Wheezing (Mild) Cardiovascular: No Edema, No Murmur, Normal Peripheral Pulses, Irregularly Irregular Extremity: Normal Inspection, Non Tender, No Calf Tenderness, No Pedal Edema Skin: Normal Color, Warm/Dry Neurologic/Psychiatric: Alert, Oriented x3, No Motor/Sensory Deficits, Normal Mood/Affect Hospital Course Pt was admitted to the ICU from the ER for shortness of breath and chest pain with deep breathing. She was started on IV steroids, antibiotics, and placed on Vapotherm with a BiPAP at night. She improved after a couple days in the ICU and was moved to med/surg after stopping Vapotherm and beginning 3L O2 nasal cannula while continuing BiPAP at night. She continued to improve reporting no trouble breathing while receiving DuoNeb treatments, nasal cannula O2, and BiPAP at night. She did feel extremely wobbly trying to stand and walking was very difficult requiring a lot of assistance from staff. She was recommended and evaluated for the Rehab unit to help with her recovery. She was discharged very willing and motivated to enter the Rehab unit. Labs (last 24 hrs) Laboratory Tests 01/12/19 14:58: Glucometer 557*H 01/12/19 16:33: Glucometer 498*H 01/12/19 20:10: Glucometer 298H 01/13/19 04:30: White Blood Count 12.1H, Red Blood Count 3.36L, Hemoglobin 8.9L, Hematocrit 29L, Mean Corpuscular Volume 86, Mean Corpuscular Hemoglobin 27, Mean Corpuscular Hemoglobin Concent 31L, Red Cell Distribution Width 14.2, Platelet Count 213, Mean Platelet Volume 11.4H, Neutrophils (%) (Auto) 88H, Lymphocytes (%) (Auto) 7L, Monocytes (%) (Auto) 5, Eosinophils (%) (Auto) 0, Basophils (%) (Auto) 0, Neutrophils # (Auto) 10.6H, Lymphocytes # (Auto) 0.8L, Monocytes # (Auto) 0.6, Eosinophils # (Auto) 0.0, Basophils # (Auto) 0.0, Sodium Level 138, Potassium Level 4.3, Chloride Level 101, Carbon Dioxide Level 24, Anion Gap 13, Blood Urea Nitrogen 58H, Creatinine 2.75#H, Estimat Glomerular Filtration Rate 18, BUN/Creatinine Ratio 21, Glucose Level 103, Calcium Level 9.4, Phosphorus Level 3.1, Magnesium Level 2.3 Microbiology 01/09/19 Blood Culture - Preliminary, Resulted No growth 01/09/19 MRSA Screen - Final, Complete MRSA not isolated 01/09/19 Urine Culture - Final, Complete 3 or more isolates Patient resulted labs reviewed. Pending Labs Laboratory Tests 01/13/19 04:30: White Blood Count 12.1, Red Blood Count 3.36, Hemoglobin 8.9, Hematocrit 29, Mean Corpuscular Volume 86, Mean Corpuscular Hemoglobin 27, Mean Corpuscular Hemoglobin Concent 31, Red Cell Distribution Width 14.2, Platelet Count 213, Mean Platelet Volume 11.4, Neutrophils (%) (Auto) 88, Lymphocytes (%) (Auto) 7, Monocytes (%) (Auto) 5, Eosinophils (%) (Auto) 0, Basophils (%) (Auto) 0, Neutrophils # (Auto) 10.6, Lymphocytes # (Auto) 0.8, Monocytes # (Auto) 0.6, Eosinophils # (Auto) 0.0, Basophils # (Auto) 0.0, Sodium Level 138, Potassium Level 4.3, Chloride Level 101, Carbon Dioxide Level 24, Anion Gap 13, Blood Urea Nitrogen 58, Creatinine 2.75, Estimat Glomerular Filtration Rate 18, BUN/Creatinine Ratio 21, Glucose Level 103, Calcium Level 9.4, Phosphorus Level 3.1, Magnesium Level 2.3 Discharge Home Medications: Active Scripts Active Reported Xarelto (Rivaroxaban) 20 Mg Tablet 20 Mg PO DAILY Levemir Flextouch (Insulin Detemir) 100 Unit/1 Ml Insuln.pen 80 Units SC HS Metformin HCl ER (Metformin HCl) 500 Mg Tab.er.24h 500 Mg PO BID Amlodipine Besylate 10 Mg Tablet 10 Mg PO DAILY Trulicity (Dulaglutide) 0.75 Mg/0.5 Ml Pen.injctr 0.75 Mg SC BOWIE Clonidine HCl 0.1 Mg Tablet 0.1 Mg PO BID Multaq (Dronedarone HCl) 400 Mg Tablet 400 Mg PO BID Lisinopril 20 Mg Tablet 20 Mg PO BID Hydralazine HCl 10 Mg Tablet 10 Mg PO TID Mysoline (Primidone) 50 Mg Tablet 50 Mg PO HS Stool Softener-Stimulant Lax (Sennosides/Docusate Sodium) 1 Each Tablet 1 Tab PO DAILY PRN Fish Oil 1,000 mg Softgel ([place]-3/Dha/Epa/Fish Oil) 1 Each Capsule 1,000 Mg PO HS Multi-Day Plus Minerals Tablet (Multivitamin-Min/Iron/FA/Vit K) 1 Each Tablet 1 Tab PO DAILY Cyclobenzaprine HCl 10 Mg Tablet 20 Mg PO BID PRN Atorvastatin Calcium 40 Mg Tablet 40 Mg PO HS Hydrocodon-Acetaminophn 10-325 (Hydrocodone/Acetaminophen) 1 Each Tablet 1 Tab PO TID PRN Magnesium (Magnesium Oxide) 400 Mg Tablet 400 Mg PO HS Potassium (Potassium Gluconate) 99 Mg Tablet 99 Mg PO DAILY Aspirin EC (Aspirin) 81 Mg Tablet.dr 81 Mg PO DAILY Gabapentin 600 Mg Tablet 600 Mg PO TID Novolog Flexpen (Insulin Aspart) 300 Units/3 Ml Solution SQ TIDAC USES 1 UNIT FOR EVERY 2 POINTS OVER 100 BS Pantoprazole Sodium 40 Mg Tablet.dr 40 Mg PO DAILY Isosorbide Mononitrate ER (Isosorbide Mononitrate) 60 Mg Tab 60 Mg PO DAILY Fenofibrate (Fenofibrate,Micronized) 134 Mg Capsule 134 Mg PO HS Furosemide 40 Mg Tablet 40 Mg PO DAILY Cinnamon (Cinnamon Bark) 500 Mg Capsule 500 Mg PO BID Instructions to patient/family Please see electronic discharge instructions given to patient. Clinical Quality Measures DVT/VTE Risk/Contraindication: Risk Factor Score Per Nursin RFS Level Per Nursing on Admit: 4+=Very High GREGGSHANAE DO 01/13/19 1209: Diagnosis/Chief Complaint Discharge Diagnosis (1) Respiratory failure Status: Acute (2) BiPAP (biphasic positive airway pressure) dependence (3) COPD (chronic obstructive pulmonary disease) (4) Hyperkalemia Status: Acute (5) Hyperphosphatemia Status: Acute (6) DVT prophylaxis Status: Acute (7) Elevated AST (SGOT) Status: Acute (8) Debility (9) Acute renal insufficiency Status: Acute (10) Diabetes mellitus, type 2 Status: Chronic (11) CKD (chronic kidney disease) Status: Chronic (12) A-fib (13) GERD (gastroesophageal reflux disease) Status: Chronic (14) HTN (hypertension) Status: Chronic (15) HLD (hyperlipidemia) Status: Chronic Discharge Summary Discharge Physical Exam Allergies: Coded Allergies: morphine (Verified Adverse Reaction, Severe, hallucination, 07/12/18) General Appearance: No Apparent Distress, Anxious, Chronically ill Respiratory: Crackles, Decreased Breath Sounds, Wheezing (Mild) Cardiovascular: Irregularly Irregular Neurologic/Psychiatric: Alert, Oriented x3, No Motor/Sensory Deficits, Normal Mood/Affect Hospital Course Was the Problem List Reviewed?: Yes Patient was agreeable for inpatient rehabilitation and will monitor closely on telemetry alone with cardiology consultation monitoring respiratory status closely and renal function. Discussion & Recommendations Discharge Planning: <30 minutes discharge planning Supervisory-Addendum Brief Verification & Attestation Participated in pt care: history, MDM, physical Personally performed: exam, history, MDM, supervision of care Care discussed with: Medical Student Procedures: n/a Results interpretation: Verified all documentation Verification and Attestation of Medical Student E/M Service A medical student performed and documented this service in my presence. I reviewed and verified all information documented by the medical student and made modifications to such information, when appropriate. I personally performed the physical exam and medical decision making. 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
--- NOTE | 2019-01-13 11:10 | Cardiology Progress Note ---
Subjective Date Seen by Provider: Jan 13, 2019 Time Seen by Provider: 11:06 Subjective/Events-last exam Patient is sitting in a chair, feeling better. No new complaint Review of Systems General: No Chills, No Night Sweats; Fatigue, Malaise; No Appetite, No Other HEENT: No Head Aches, No Visual Changes, No Eye Pain, No Ear Pain, No Dysphasia, No Sinus Congestion, No Post Nasal Drip, No Sore Throat, No Other Pulmonary: Dyspnea; No Cough, No Pleuritic Chest Pain, No Other Cardiovascular: Edema; No: Chest Pain, Palpitations, Orthopnea, Paroxysmal Noc. Dyspnea, Lt Headedness, Other Objective-Cardiology Exam Last Set of Vital Signs Vital Signs 01/11/19 01/13/19 01/13/19 01/13/19 12:00 08:00 09:30 10:55 Temp 36.1 Pulse 122 Resp 22 B/P (MAP) 144/64 (90) Pulse Ox 96 O2 Delivery High Flow N/C O2 Flow Rate 3.00 FiO2 50 Capillary Refill : Less Than 3 Seconds I&O Intake and Output 01/13/19 00:00 Intake Total 2550 ml Output Total 1851 ml Balance 699 ml Intake Oral 2550 ml Output Urine Total 1851 ml General: Alert, Oriented X3, Cooperative HEENT: Atraumatic, PERRLA Neck: Supple, No JVD, No Thyromegaly Lungs: Other (diminished breath sounds) Heart: Regular Rate, Normal S1, Normal S2, No Murmurs Abdomen: Normal Bowel Sounds, Soft, No Tenderness Extremities: No Clubbing, Other (+1 edema) Skin: No Rashes, No Significant Lesion Neuro: Normal Speech, Cranial Nerves 3-12 NL Psych/Mental Status: Mental Status NL, Mood NL Results Lab Laboratory Tests 01/13/19 04:30 A/P-Cardiology Admission Diagnosis Acute respiratory failure Acute exacerbation of COPD Congestive heart failure, acute left ventricular diastolic dysfunction Coronary artery disease Assessment/Plan Acute respiratory failure, acute exacerbation of COPD and congestive heart failure, improving, last echo was done in July 2018 showing normal left ventricu lar systolic function with ejection fraction 55-65 percent, left atrial dilatation, moderate mitral regurgitation and pulmonary hypertension with PA pressure of 40 mmHg. feeling better at this time, using nasal cannula, I am holding diuretic due to renal failure Acute on chronic renal failure, probably secondary to aggressive diuresis, hold Lasix, hold lisinopril and monitor. Paroxysmal atrial fibrillation, history of electrical cardioversion, back to atrial fibrillation with rapid ventricular response, I will change amlodipine to Cardizem and place patient on telemetry and monitor heart rate and blood pressure Sinus node dysfunction, history of severe bradycardia, currently heart rate is well-controlled, continue to monitor Mild elevation in troponin level, no active chest pain, no acute EKG changes, probably due to hypoxemia and small vessel disease. Medical therapy is recommended continue to monitor Type II myocardial infarction secondary to hypoxemia, last cardiac catheterization as described below Coronary artery disease, history of stent placement 2 to the LAD. In August 2013 cardiac cath revealed patent stents to LAD, known to have Taxus 320 mm stent in the mid LAD, proximal to that there was a stent placed in 2011 which is 312 mm Ion stent. Both are patent with 40-50 percent in-stent restenosis. Secondary b jozef had 90 percent stenosis at the ostium. Small artery, not amendable to intervention. Another cardiac catheterization February 2015 showing patent stents in the proximal LAD with 50 percent stenosis beyond the stent and 50 percent stenosis at the midportion of the LAD small vessel disease distally, moderate 40-50 percent stenosis in the right coronary artery with multiple segment of the proximal, mid and distal portion. Cardiac catheterization done March 05, 2017 revealed severe LAD stenosis beyond the previously known stent 3.0. Successful primary stenting using 3.08 mm ALPINE expanded to 3.5 with excellent results, balloon for in-stent restenosis also was made. Most recent cardiac catheterization done March 09, 2018 revealed patent stent with small vessel disease, no intervention required. continue to monitor [id number] score of 4, yearly risk of stroke without oral anticoagulation is 4 percent. Maintained on Xarelto 15mg. Renal insufficiency, continue to monitor renal function. Hypertension, continue on current medication monitor blood pressure Renal arterial duplex done July 2015 revealed proximal right renal artery not evaluated, other segments of the left renal artery demonstrated no evidence of significant stenosis, continue to monitor Hyperlipidemia, Lipitor was increased recently. Continue to monitor Obstructive sleep apnea, using C Pap, using oxygen as needed Nonobstructive carotid artery stenosis per carotid duplex done in February 2018, continue to monitor. Diabetes mellitus-managed by primary care physician Chronic pain, followed and managed by primary care physician Obesity, BMI is 37, discussed diet and exercise for weight loss. Clinical Quality Measures DVT/VTE Risk/Contraindication: Risk Factor Score Per Nursin RFS Level Per Nursing on Admit: 4+=Very High BOOM MILLER MD Jan 13, 2019 11:10
[2019-01-13] MEDS ORDERED: DILTIAZEM 120 MG (CARDIZEM CD) CAP PO SCH (11:15)
[2019-01-13 11:19] VITALS: BP 144/64
== END 2019-01-13 11:15 | DRG 189 ==
LOC: EDUNIT# 17:10 → ER 17:12 → ICU 19:43 → OBSVTOIN 01-10 08:09 → 4TH 01-11 13:49
PROVIDERS: ADMIT Internal Medicine; ATTEND Internal Medicine
DX: J96.01 Acute respiratory failure with hypoxia (principal); J44.1 Chronic obstructive pulmonary disease with (acute) exacerbation; I13.0 Hypertensive heart and chronic kidney disease with heart failure and stage 1 through stage 4 chronic kidney disease, or unspecified chronic kidney disease; I50.31 Acute diastolic (congestive) heart failure; N18.9 Chronic kidney disease, unspecified; N17.9 Acute kidney failure, unspecified; Z68.41 Body mass index [BMI] 40.0-44.9, adult; I21.A1 Myocardial infarction type 2; E11.9 Type 2 diabetes mellitus without complications; I25.10 Atherosclerotic heart disease of native coronary artery without angina pectoris; E78.5 Hyperlipidemia, unspecified; I48.0 Paroxysmal atrial fibrillation; I27.20 Pulmonary hypertension, unspecified; I34.0 Nonrheumatic mitral (valve) insufficiency; K21.9 Gastro-esophageal reflux disease without esophagitis; G47.33 Obstructive sleep apnea (adult) (pediatric); E83.39 Other disorders of phosphorus metabolism; E66.9 Obesity, unspecified; G89.29 Other chronic pain; I25.2 Old myocardial infarction; Z91.19 Patient's noncompliance with other medical treatment and regimen; Z79.01 Long term (current) use of anticoagulants; Z79.82 Long term (current) use of aspirin; Z99.81 Dependence on supplemental oxygen; Z87.891 Personal history of nicotine dependence; Z95.5 Presence of coronary angioplasty implant and graft
CPT/HCPCS: 36415; 36600; 71045; 80048; 80053; 81000; 82805; 82962; 83605; 83735; 83874; 83880; 84100; 84484; 85007; 85025; 85027; 85610; 85730; 87040; 87081; 87088; 87804; 93005; 94640; 94660; 96374; G0378

== ENCOUNTER 2019-01-13 09:26 | Inpatient (IN) | payer MEDICARE, OTHER ==
[~2019-01-13] VITALS: Ht 162.5 cm; Wt 94.9 kg
[~2019-01-13 09:26] MED LIST changes: +DRON400T2 PO; +DULA0.75 SC; +HYDR-3922 PO; +INSU100I29 SC; +LISI-552 PO; +RIVA20TA PO
--- NOTE | 2019-01-13 11:04 | NUR ---
REVIEWED MED REC IT WAS REPORTED UPON ADMISSION TO ICU. NO CHANGES WERE MADE WHEN THE PATIENT DISCHARGED TO REHAB.
[2019-01-13 11:15] VITALS: BP 97/64
--- NOTE | 2019-01-13 11:15 | NUR ---
Pt admitted to room 225, with an admitting diagnosis of Debility from 4th floor, via w/c accompanied by PT. NEELIMA CRAIN introduced to surroundings, call light, bed controls, phone, TV, temperature control, lights, meal times, smoking policy, visitor policy, side rail policy, bathrooms and showers. Patient Rights given to patient in the handbook. NEELIMA CRAIN verbalizes understanding that [facility] is not responsible for the loss or damage to any personal effects or valuables that are kept in the patients posession during their hospitalization. The following Patient Care Plans were discussed with the pt: Discharge Planning, Impaired Mobility, Self Care Deficit, Potential for fall/injury. NEELIMA CRAIN acknowledges understanding of Interdisciplinary Patient Education. Patient and/or family were informed about the Rapid Response Team and its purpose. Patient received Patient Rights Booklet, which includes Privacy Act Statement and Data Collection Information Summary. Pt working w PT/OT immediately upon arrival to unit.
[2019-01-13] MEDS ORDERED: ACETAMINOPHEN 325 MG TABLET PO PRN (11:45)
[2019-01-13] MEDS ORDERED: LOPERAMIDE 2 MG (IMODIUM) TABLET PO PRN (11:45)
[2019-01-13] MEDS ORDERED: SENNA W/DOCUSATE (SENOKOT S) TABLET PO PRN (11:45)
[2019-01-13] MEDS ORDERED: HYDROcodone/APAP 5 MG/325 MG (LORTAB) TAB PO PRN (11:45)
[2019-01-13] MEDS ORDERED: LORazepam INJ 2 MG/ML (ATIVAN) VIAL IV PRN (11:45)
[2019-01-13] MEDS ORDERED: hydrALAZINE (APESOLINE) 20 MG/ML VIAL IV PRN (11:45)
[2019-01-13] MEDS ORDERED: RT-ALBUTEROL SULF 2.5 MG/3 ML PRE-MIX VIAL INH PRN (11:45)
[2019-01-13] MEDS ORDERED: MELATONIN 3 MG TABLET PO PRN (11:45)
[2019-01-13] MEDS ORDERED: diphenhydrAMINE 25 MG TAB (BENADRYL) PO PRN (11:45)
[2019-01-13] MEDS ORDERED: DOCUSATE SODIUM 100 MG (COLACE) CAP PO PRN (11:45)
[2019-01-13] MEDS ORDERED: CALCIUM CARBONATE 500 MG (TUMS) TAB.CHEW PO PRN (11:45)
[2019-01-13] MEDS ORDERED: ONDANSETRON 4 MG/2 ML (SDV) Z0FRAN IV PRN (11:45)
--- NOTE | 2019-01-13 11:54 | Physical Therapy Evaluation ---
PT Evaluation-General Medical Diagnosis Admission Date Medical Diagnosis: SOA, heart failure Onset Date: Jan 10, 2019 Therapy Diagnosis Therapy Diagnosis: decreased strength/endurance, abn gait, SOA Height/Weight Height (Feet): 5 Height (Inches): 4.00 Weight (Pounds): 219 Weight (Ounces): 1.0 Precautions Precautions/Isolations: Fall Prevention, Standard Precautions Weight Bear Status Right Lower Extremity: Right Weight Bearing/Tolerated Left Lower Extremity: Left Weight Bearing/Tolerated Referral Physician: Shanae Lopez DO Reason for Referral: Evaluation/Treatment Medical History Pertinent Medical History: Atrial Fib, CAD, COPD, DM, GERD, HTN Additional Medical History Pertinent Medical History: Atrial Fib, CAD, DM, GERD, HTN Current History Pt admitted from ER with complaints of SOA over past few days. Agrees to PT. Reviewed History: Yes Social History Home: Single Level Current Living Status: Spouse (spouse is retired and home all the time.) Entry Into Home: Stairs Without Railing PT Steps Into Home: 4 Prior Prior Level of Function SCALE: Activities may be completed with or without assistive devices. 3-Ygmumvlhqs-nwdivmd completes the activity by him/herself with no assistance from a helper. 5-Set-up or Clean-up Assistance-helper sets up or cleans up; patient completes activity. [place] assists only prior to or following the activity. 4-Supervision or Touching Assistance-helper provides verbal cues and/or touching/steadying and/or contact guard assistance as patient completes activity. Assistance may be provided throughout the activity or intermittently. 3-Partial/Moderate Assistance-helper does LESS THAN HALF the effort. [place] lifts, holds or supports trunk or limbs, but provides less than half the effort. 2-Substantial/Maximal Assistance-helper does MORE THAN HALF the effort. [place] lifts or holds trunk or limbs and provides more than half the effort. 9-Rwwuqgnsv-efcpdr does ALL the effort. Patient does none of the effort to complete the activity. Or, the assistance of 2 or more helpers is required for the patient to complete the activity. If activity was not attempted, code reason: 7-Patient Refused. 9-Not Applicable-not attempted and the patient did not perform the activity before the current illness, exacerbation or injury. 10-Not Attempted due to Environmental Limitations-(lack of equipment, weather restraints, etc.). 88-Not Attempted due to Medical Conditions or Safety Concerns. Bed Mobility: 6 Transfers (B,C,W/C): 6 Gait: 6 Stairs: 6 Indoor Mobility (Ambulation): Independent Stairs: Independent Prior Devices Use: None PT Evaluation-Current Subjective Pt in chair on 4th floor pre-tx with in room. Pt agrees to PT this morning. pt reports no pain just SOA at this time. Pt/Family Goals Pt in chair post-tx on IRF with present in room. Pt with call light, room phone, tray table, and all needs met at this time. Objective Patient Orientation: Person, Place, Time, Situation Attachments: Oxygen (High flow NC 2L), IV ROM/Strength Strength Lower Extremities B/L LE globally 5/5 except B/L hip flexion 4-/5 Integumentary/Posture Integumentary See nursing notes Bowel Incontinence: No Bladder Incontinence: No Posture Pt stands with FWW forward bent at the hips and head down toward ground Sensory Vision: Functional Hearing: Functional Sensation Right Upper Extremit: Intact Sensation Left Upper Extremity: Intact Sensation Right Lower Extremit: Impaired (Pt reports slight decreased sensation over dorsal R foot and around great toe. reports this is her normal.) Sensation Left Lower Extremity: Intact Transfers Roll Left to Right (QC): 6 Sit to Lying (QC): 6 Lying to Sitting/Side of Bed(Q: 4 (SBA. Pt uses multiple attempts and swings feet over side to sit upper body up.) Sit to Stand (QC): 4 (SBA) Chair/Fcn-po-Qelqv Xfer(QC): 4 (SBA. pt stays hunched over to stand pivot transfer.) Car Transfer (QC): 4 (SBA) Gait Does the Patient Walk?: Yes Mode of Locomotion: Walk Anticipated Mode of Locomotion: Walk Distance (FIM): 3=150 ft Walk 10 feet (QC): 4 (CGA) Walk 50 ft with 2 Turns(QC): 4 (CGA) Walk 150 ft (QC): 4 (CGA) Walking 10ft/uneven surface-QC: 4 (CGA) Distance: 150', 100', 20' Gait Assistive Device: FWW Comments/Gait Description Pt uses short smooth step through gait pattern with a slow pace. Pt walks forward flexed at the hips with head down towards the ground. Pt demonstrated shaking through the arms and walker early in session and was reassured she would not fall and shaking stopped at that point. Wheelchair Training Does the Pt Use a Wheelchair?: No Stairs #of Steps: 1 1 Step (curb) (QC): 3 (Mari. pt accepts less weight throught the R LE to go up step ) 4 Steps (QC): 88 Assistive Device: Walker 12 Steps (QC): 88 Balance Sitting Static: Normal Sitting Dynamic: Good Standing Static: Good Standing Dynamic: Fair Picking up an Object (QC): 3 (modA. Pt was unstable but able to get to pen and back up with 1 hand on FWW) Treatment Pt performed functional transfer training, skilled gait training, step training, and education this date. Assessment/Needs Pt becomes MUNOZ and O2 sats drop with walking down to 84% at the lowest which rises back to 97% withing 20seconds of PLB. Pt continues to be tachy with HR 165 at the highest. Pt takes short smooth steps with ambulation and seems to have more fear of falling than she appears to be at risk for at this time. Rehab Potential: Fair PT Short Term Goals Short Term Goals Time Frame: Jan 20, 2019 Gait Distance Comment: 150' Gait Assistive Device: FWW (SBA) PT Prison Goals Gsa Coordinator Goals PT Gsa Coordinator Goals Time Frame: Feb 03, 2019 Sit to Lying (QC): 6 Lying-Sitting on Side/Bed(QC): 6 Sit to Stand (QC): 6 Roll Left to Right (QC): 6 Chair/Ekz-wk-Raaqr Xfer(QC): 6 Car Transfer (QC): 6 Does the Patient Walk: Yes Distance: 300' Walk 10 feet (QC): 6 Walk 10ft-Uneven Surface(QC): 4 (SBA) Walk 50ft with 2 Turns (QC): 6 Walk 150 ft (QC): 6 Gait Assistive Device: FWW Does the Pt use WC or Scooter?: No # of Steps: 4 1 Step (curb) (QC): 4 (SBA) 4 Steps (QC): 4 (SBA) Picking up an Object (QC): 4 (SBA) PT Plan Problem List Problem List: Activity Tolerance, Functional Strength, Safety, Balance, Gait, Transfer Treatment/Plan Treatment Plan: Continue Plan of Care Treatment Plan: Bed Mobility, Education, Functional Activity Diane, Functional Strength, Group Therapy, Gait, Safety, Therapeutic Exercise, Transfers Treatment Duration: Feb 03, 2019 Frequency: At least 5 of 7 days/Wk (IRF) Estimated Hrs Per Day: 1.5 hours per day Patient and/or Family Agrees t: Yes Safety Risks/Education Patient Education: Gait Training, Transfer Techniques, Steps, Correct Positioning, Safety Issues Teaching Recipient: Patient Teaching Methods: Demonstration, Discussion Response to Teaching: Return Demonstration, Reinforcement Needed Discharge Recommendations Plan Pt will perform functional strengthening/endurance training, bed mobility training, transfer training, skilled ambulation training, and education while in IRF. Therapy Discharge Recommendati: Other, See Comments (Home with spouse) Equpiment Recommendations-D/C: Straight Cane, Front Wheeled Walker, Oxygen Time/GCodes Time In: 1100 Time Out: 1150 Total Billed Treatment Time: 50 Total Billed Treatment 1 visit EVM 25' FA 25' FLORINDA SMART PT Jan 13, 2019 11:54
--- NOTE | 2019-01-13 12:59 | Occupational Therapy Eval ---
OT Evaluation-General/PLF Medical Diagnosis Admission Date Jan 13, 2019 at 11:15 Medical Diagnosis: SOA, heart failure Onset Date: Jan 10, 2019 Therapy Diagnosis Therapy Diagnosis: decreased functional mobility and ADL function Height/Weight Height (Feet): 5 Height (Inches): 4.00 Weight (Pounds): 219 Weight (Ounces): 1.0 Precautions Precautions/Isolations: Fall Prevention, Standard Precautions Weight Bear Status Weight Bearing Restriction: Weight Bearing/Tolerated Referral Physician: Shanae Lopez DO Referral Reason: Activity Tolerance, Self Care, Evaluation/Treatment, Strengthening/ROM Medical History Pertinent Medical History: Atrial Fib, CAD, COPD, DM, GERD, HTN Additional Medical History see above Current History Per H&P: "HPI: Pt presented to the ER after having trouble breathing for the past 3-4 days. She states of Wednesday she started noticing trouble breathing that has gotten worse over the weekend and is associated with a headache and chest pain that is like a pressure/bruised type feeling when she breathes in deeply. She had a little blurry vision on Wednesday (2 days ago) and has a feeling of feverish. She denies any chills, nausea, vomiting, diarrhea, constipation. She came to the ER on home oxygen at 4L nasal cannula and her initial O2 saturation was in the 70s, but was placed on Vapotherm upon arrival in ER which increased her saturation to 94%. She does complain of a cough that is non productive. She is currently in the ICU on vapotherm 30L at 60% nasal cannula and saturating in mid 90s at rest dropping to 80s with activity. Source: patient, family" Reviewed History: Yes Social History Home: Single Level Current Living Status: Spouse (spouse is retired and home all the time.) Entry Into Home: Stairs Without Railing Steps Into Home: 4 Pt's does not work, able to assist at home if needed. Pt's states he has health issues and needs PT. Grand daughters and pt's sons live close and able to assist when needed. ADL-Prior Level of Function SCALE: Activities may be completed with or without assistive devices. 6-Tvjzotefqh-gwoolpp completes the activity by him/herself with no assistance from a helper. 5-Set-up or Clean-up Assistance-helper sets up or cleans up; patient completes activity. [place] assists only prior to or following the activity. 4-Supervision or Touching Assistance-helper provides verbal cues and/or touching/steadying and/or contact guard assistance as patient completes activity. Assistance may be provided throughout the activity or intermittently. 3-Partial/Moderate Assistance-helper does LESS THAN HALF the effort. [place] lifts, holds or supports trunk or limbs, but provides less than half the effort. 2-Substantial/Maximal Assistance-helper does MORE THAN HALF the effort. [place] lifts or holds trunk or limbs and provides more than half the effort. 7-Ftcemqwue-otdfzw does ALL the effort. Patient does none of the effort to complete the activity. Or, the assistance of 2 or more helpers is required for the patient to complete the activity. If activity was not attempted, code reason: 7-Patient Refused. 9-Not Applicable-not attempted and the patient did not perform the activity before the current illness, exacerbation or injury. 10-Not Attempted due to Environmental Limitations-(lack of equipment, weather restraints, etc.). 88-Not Attempted due to Medical Conditions or Safety Concerns. ADL PLOF Comments Pt was IND without use of AE Self Care: Independent Functional Cognition: Independent DME/Equipment: Tub/Shower Pt responsible for homemaking and grocery shopping Occupation: retired Drive Self: Yes OT Current Status Subjective Pt seen in recliner chair, agreeable to OT eval and treat. Pt states no pain, just "weak." Pt states she has been feeling nauseous today. Mental Status/Objective Patient Orientation: Person, Place, Time, Situation, Normal For Age Attachments: Oxygen (2L) Current Hearing Aids: No Dentures/Partials: No Hand Dominance: Right Upper Extremity ROM WFL BUE Upper Extremity Coordination WFL BUE Upper Extremity Sensation WFL no c/o paresthesia Upper Extremity Strength 4-/5 BUE ADL-Treatment Toilet Transfer (QC): 4 (CGA) Other Treatments ADLs to follow. present through evaluation. Pt seen in recliner. Sit to stand to FWW with SBA, transfers to bed with slow steps. Pt states she has been feeling nauseous due to pt utilizing extra energy and being more active today. Bed mob with increased time. Pt reclines in bed, completes UB strength testing in bed. Pt gives history, pt and educated on OT role, ARU expectations, visiting hours, etc. Pt agreeable to showering, wishes to eat prior to group therapy. Shower s/u for pt. Clothing gathered for pt to wear post-shower. Pt and 's questions answered thoroughly. Pt left in bed with call light in reach, all needs met, present. Education OT Patient Education: Correct positioning, Instructions to caregiver, Purpose of tx/functional activities, Rehab process, Safety issues Teaching Recipient: Patient, Significant Other Teaching Methods: Demonstration, Discussion Response to Teaching: Verbalize Understanding, Return Demonstration OT Short Term Goals Short Term Goals Grooming(FIM): 6 Upper Body Dressing(FIM): 4 Lower Body Dressing(FIM): 3 Additional Short Term Goals: 1-Demonstrate ADL Tasks, 2-Verbalize Understanding, 3-ImproveStrength/Diane 1=Demonstrate adherence to instructed precautions during ADL tasks. 2=Patient will verbalize/demonstrate understanding of assistive devices/modifications for ADL. 3=Patient will improve strength/tolerance for activity to enable patient to perform ADL's. OT Custodial Goals Teacher Aide Clerical Goals Eating (QC): 6 Oral Hygiene (QC): 6 Shower/Bathe Self (QC): 6 Upper Body Dressing (QC): 6 Lower Body Dressing (QC): 6 On/Off Footwear (QC): 6 Toileting Hygiene (QC): 6 Toilet/Commode Transfer (QC): 6 Additional Goals: 1-Demonstrate ADL Tasks, 2-Verbalize Understanding, 3- ImproveStrength/Diane 1=Demonstrate adherence to instructed precautions during ADL tasks. 2=Patient will verbalize/demonstrate understanding of assistive devices/modifications for ADL. 3=Patient will improve strength/tolerance for activity to enable patient to perform ADL's. OT Education/Plan Problem List/Assessment Assessment: Decreased Activ Tolerance, Decreased Safety Aware, Decreased UE Strength, Impaired Funct Balance, Impaired I ADL's, Impaired Self-Care Skills Discharge Recommendations Plan/Recommendations: Continue POC Equpiment Recommendations-D/C: Rails on Tub/Shower, Bath Chair Patient/Family Goals Return home and become more IND. Treatment Plan/Plan of Care Treatment,Training & Education: Yes Patient would benefit from OT for education, treatment and training to promote independence in ADL's, mobility, safety and/or upper extremity function for ADL's. Plan of Care: ADL Retraining, Caregiver Training, Functional Mobility, Group Exercise/Act as Ind, UE Funct Exercise/Act Treatment Duration: Jan 27, 2019 Frequency: At least 5 of 7 days/Wk (IRF) Estimated Hrs Per Day: 1.5 hours per day Agreement: Yes Rehab Potential: Guarded Time/GCodes Start Time: 12:00 Stop Time: 12:30 Total Time Billed (hr/min): 30 Billed Treatment Time 1 EVM (15), FA (15)= 30 MILLIE ROMO OTR Jan 13, 2019 12:59
--- NOTE | 2019-01-13 13:19 | ST Cognitive Linguistic Eval ---
Speech Evaluation-General Medical Diagnosis SOA, heart failure Onset Date: Jan 10, 2019 Therapy Diagnosis Therapy Diagnosis: cognitive-communication Precautions Precautions: Fall Precautions/Isolations: Standard Precautions Referral Referring Physician: Jessica Reason for Referral: Evaluation/Treatment Medical History Pertinent Medical History: Atrial Fib, CAD, COPD, DM, GERD, HTN Atrial Fib, CAD, COPD, DM, GERD, Hypertension Current History Atrial Fib, CAD, COPD, DM, GERD, Hypertension Reviewed History: Yes Social History Home: Single Level Current Living Status: Spouse (spouse is retired and home all the time.) Speech PLF-Current Status Prior Level of Function Patient was living with spouse in [place], [place]. Patient was independent with daily activities. Subjective Patient was sitting upright in chair in room. She was pleasant and cooperative. Her was present during the evaluation. She demonstrated some coughing and reported medical history and use of oxygen at home. Language Eval: Auditory Comprehends Simple Yes/No Ques: Functional Indent/Objects Multiple Rankin: Functional Ident/Pics in Multiple Rankin: Functional Follows 1-Step Commands: Functional Follows Complex Directions: Functional Follows General Conversations: Functional Language Eval: Verbal Language Completes Spontaneous Greeting: Functional Produces Auto, Serial Info: Functional Imitates Simple Words/Phrases: Functional Word Finding: Functional Requests Basic Needs: Functional States Basic Personal Info: Functional Expresses Complex Ideas: Functional Language Evaluation: Reading Comprehends Single Nouns: Functional Follows Simple Written Direct: Functional Comprehends Multiple Sentences: Functional Cognitive Patient Orientation Patient oriented to date, year, state and place Objective Cognitive Domain Attention: WNL Memory: WNL Problem Solving: Functional Executive Functions: WNL Visuospatial Skills: WNL Composite Severity Rating: WNL Clock Drawing Severity Rating: WNL Score: 28/30 Range: Normal Normal cognitive skills Objective Formal/Standardized Tests Patient was given the [facility] Mental Status (UMS) Examination Results Patient scored 28/30 indicating normal cognitive function Oral Motor/Speech Production Patient presented with [facility] oral motor and speech skills Impression Patient demonstrated normal and appropriate cognitive-communicative skills and speech therapy services are not warranted at this time. Speech Patient Assess Expression of Ideas/Wants: Expression (4) Understanding Verbal Content: Understands (4) Brief Interview-Mental Status: Yes Repetition of Three Words: Three (3) Temporal Orientation: Year: Correct (3) Temporal Orientation: Month: Accurate within 5 days(2) Temporal Orientation: Day: Correct (1) Recall : Wear to say "Sock": Yes, no cue required (2) Recall : Color: Yes, no cue required (2) Recall : Bed: Yes, no cue required (2) Memory/Recall Ability: Current season, That he or she is in a hsp/hsp unit Speech-Plan Patient/Family Goals Patient/Family Goals: Return to home with spouse Treatment Plan Speech Therapy Treatment Plan: Discontinue ST Patient presents with average cognitive-communicative skills and speech services are not warranted at this time. Treatment Duration: Jan 13, 2019 Frequency: 1 time per week Estimated Hrs Per Day: .25 hour per day Rehab Potential: Good Barriers to Learning: no barriers noted at this time Pt/Family Agrees to Plan: Yes Safety Risks/Education Teaching Recipient: Patient Teaching Methods: Discussion Response to Teaching: Verbalize Understanding Education Topics Provided: speech therapy services and room safety Time Speech Therapy Time In: 11:50 Speech Therapy Time Out: 12:05 Total Billed Time: 15 Billed Treatment Time 1, PADILLA Dixon Jan 13, 2019 13:19
[2019-01-13 14:01] VITALS: BP 94/64
--- NOTE | 2019-01-13 14:49 | Occupational Ther Daily Note ---
OT Current Status-Daily Note Subjective Pt assisted back to room from group therapy session. Pt does not state any pain, pt agreeable to OT tx session. Mental Status/Objective Patient Orientation: Normal For Age Attachments: Oxygen (2L) ADL-Treatment Therapy Code Descriptions/Definitions Functional [place] Measure: 0=Not Assessed/NA 4=Minimal Assistance 1=Total Assistance 5=Supervision or Setup 2=Maximal Assistance 6=Modified [place] 3=Moderate Assistance 7=Complete IndependenceSCALE: Activities may be completed with or without assistive devices. 5-Gahjaphurd-wegjbzs completes the activity by him/herself with no assistance from a helper. 5-Set-up or Clean-up Assistance-helper sets up or cleans up; patient completes activity. [place] assists only prior to or following the activity. 4-Supervision or Touching Assistance-helper provides verbal cues and/or touching/steadying and/or contact guard assistance as patient completes activity. Assistance may be provided throughout the activity or intermittently. 3-Partial/Moderate Assistance-helper does LESS THAN HALF the effort. [place] lifts, holds or supports trunk or limbs, but provides less than half the effort. 2-Substantial/Maximal Assistance-helper does MORE THAN HALF the effort. [place] lifts or holds trunk or limbs and provides more than half the effort. 5-Pqaalsspg-cthtsf does ALL the effort. Patient does none of the effort to complete the activity. Or, the assistance of 2 or more helpers is required for the patient to complete the activity. If activity was not attempted, code reason: 7-Patient Refused. 9-Not Applicable-not attempted and the patient did not perform the activity before the current illness, exacerbation or injury. 10-Not Attempted due to Environmental Limitations-(lack of equipment, weather restraints, etc.). 88-Not Attempted due to Medical Conditions or Safety Concerns. Eating (QC): 6 Oral Hygiene (QC): 5 (SBA at sink with FWW) Shower/Bathe Self (QC): 3 (Pt completes showering on shower chair. SBA in stance for andreina/ bottom washing. Pt able to reach all areas with exception of bilateral feet, requires assist with washing feet.) Upper Body Dressing (QC): 5 (s/u) Lower Body Dressing (QC): 5 (s/u, completes threading on shower chair; requires SBA in stance for pull up) Toileting Hygiene (QC): 5 (SBA in stance.) Toilet Transfer (QC): 5 (SBA) QC 1= don/doffing footwear Other Treatment Pt agreeable to session, walks with FWW and SBA to shower chair, undresses on shower chair. requires TD with sock don/ doffing (QC 1)- pt states she either utilizes sock aide at home or completes task. Pt completes ADLs, returns to recliner chair with call light in reach, all needs met, clinical nursing intern present. Education OT Patient Education: Correct positioning (importance of sitting through day), Energy conservation (during showering tasks/ dressing), Modified ADL techniques, Rehab process, Safety issues, Transfer techniques, Other (cues for pursed lip breathing with o2 during showering tasks.) Teaching Recipient: Patient Teaching Methods: Demonstration, Discussion Response to Teaching: Verbalize Understanding, Return Demonstration OT Short Term Goals Short Term Goals Grooming(FIM): 6 Upper Body Dressing(FIM): 4 (met) Lower Body Dressing(FIM): 3 (met) Additional Short Term Goals: 1-Demonstrate ADL Tasks, 2-Verbalize Understanding, 3-ImproveStrength/Diane 1=Demonstrate adherence to instructed precautions during ADL tasks. 2=Patient will verbalize/demonstrate understanding of assistive devices/modifications for ADL. 3=Patient will improve strength/tolerance for activity to enable patient to pe rform ADL's. OT Drilling Supervisor Goals Drilling Supervisor Goals Eating (QC): 6 (met) Oral Hygiene (QC): 6 Shower/Bathe Self (QC): 6 Upper Body Dressing (QC): 6 Lower Body Dressing (QC): 6 On/Off Footwear (QC): 6 Toileting Hygiene (QC): 6 Toilet/Commode Transfer (QC): 6 Additional Goals: 1-Demonstrate ADL Tasks, 2-Verbalize Understanding, 3- ImproveStrength/Diane 1=Demonstrate adherence to instructed precautions during ADL tasks. 2=Patient will verbalize/demonstrate understanding of assistive devices/modifications for ADL. 3=Patient will improve strength/tolerance for activity to enable patient to perform ADL's. OT Education/Plan Problem List/Assessment Assessment: Decreased Activ Tolerance Discharge Recommendations Plan/Recommendations: Continue POC Equpiment Recommendations-D/C: Central Supply Aide Treatment Plan/Plan of Care Treatment,Training & Education: Yes Patient would benefit from OT for education, treatment and training to promote independence in ADL's, mobility, safety and/or upper extremity function for ADL's. Plan of Care: ADL Retraining, Caregiver Training, Functional Mobility, Group Exercise/Act as Ind, UE Funct Exercise/Act Treatment Duration: Jan 27, 2019 Frequency: At least 5 of 7 days/Wk (IRF) Estimated Hrs Per Day: 1.5 hours per day Agreement: Yes Rehab Potential: Guarded Time/GCodes Start Time: 14:05 Stop Time: 14:40 Total Time Billed (hr/min): 35 Billed Treatment Time 1 ADL x2 (35) MILLIE ROMO OTR Jan 13, 2019 14:49
[2019-01-13 14:50] VITALS: BP 109/62
--- NOTE | 2019-01-13 15:25 | NUR ---
WHEN ASKED PT ABOUT CODE STATUS, PT STATES THAT SHE, "WANTS CPR DONE, IF NEEDED, BUT, DOES NOT WANT TO BE INTUBATED, OR PUT ON A VENTILATOR." PT STATES THAT SHE WOULD LIKE TO TALK TO A EXTRUSION FORMER SOMETIME ABOUT ADVANCED DIRECTIVE, DPOA. NOTIFIED DR. ESCOBEDO OF PT'S CODE STATUS REQUEST & REC'D ORDERS.
[2019-01-13] MEDS: RT-ALBUTEROL/IPRATROPIUM 3 ML (DUONEB) VIAL INH SCH ×3 (16:48→21:43)
[2019-01-13] MEDS: inSUlin ASPART (NovoLOG) 1 UNIT/0.01 ML (CHARGE PER UNIT) SC SCH ×2 (17:38→21:30)
[2019-01-13 17:46] VITALS: BP 124/70
[2019-01-13] MEDS: RIVAROXABAN 15 MG TABLET (XARELTO) PO SCH (17:48)
--- NOTE | 2019-01-13 19:25 | NUR ---
bedside report received from KELLE VIVAR, ASSUME CARE OF PT Addendum: 01/13/19 at 2349 by MEHRDAD SAAB RN time should be 1921 report received from CHRISTAL VIVAR
[2019-01-13 21:15] VITALS: BP 105/70
[2019-01-13] MEDS: methylPREDNISolone 40 MG/ML (Solu-MEDROL) VIAL IV SCH (21:17)
[2019-01-13] MEDS: CATHETER FLUSH 10 ML SYR IV PRN (21:18)
[2019-01-13] MEDS: PRIMIDONE 50 MG TAB (MYSOLINE) PO SCH (21:20)
[2019-01-13] MEDS: MAGNESIUM OXIDE (MAG-OX)400 MG TAB PO SCH (21:20)
[2019-01-13] MEDS: DRONEDARONE TABLET 400 MG TABLET PO SCH (21:20)
--- NOTE | 2019-01-13 21:20 | NUR ---
Apresoline & Catapres held b/p 105/70 up to bathroom with 1 person assist & walker, back to bed with scd on
[2019-01-13] MEDS: GABAPENTIN 600 MG (NEURONTIN) TAB PO SCH (21:21)
[2019-01-13] MEDS: SENNA W/DOCUSATE (SENOKOT S) TABLET PO SCH (21:21)
[2019-01-13] MEDS: FENOFIBRATE 134 MG (LOFIBRA) CAPSULE PO SCH (21:22)
[2019-01-13] MEDS: cloNIDine 0.1 MG (CATAPRES) TAB PO SCH (21:33)
[2019-01-14] MEDS: RT-ALBUTEROL/IPRATROPIUM 3 ML (DUONEB) VIAL INH SCH ×4 (01:27→21:13)
[2019-01-14 05:45] VITALS: BP 153/69
[2019-01-14] MEDS: POTASSIUM CL 10MEQ/50ML IVPB 50 ML IV SCH (06:00)
[2019-01-14] MEDS: inSUlin ASPART (NovoLOG) 1 UNIT/0.01 ML (CHARGE PER UNIT) SC SCH ×4 (06:31→20:58)
--- NOTE | 2019-01-14 07:12 | NUR ---
bedside report given to JOSEY VIVAR
[2019-01-14 08:05] VITALS: BP 153/69
--- NOTE | 2019-01-14 08:29 | PM&R H&P / Post Admit Assess ---
History of Present Illness HPI/Chief Complaint CC: Debility Hospital course from med-surg: Pt was admitted to the ICU from the ER for shortness of breath and chest pain with deep breathing. She was started on IV steroids, antibiotics, and placed on Vapotherm with a BiPAP at night. She improved after a couple days in the ICU and was moved to [facility]/surg after stopping Vapotherm and beginning 3L O2 nasal cannula while continuing BiPAP at night. She continued to improve reporting no trouble breathing while receiving DuoNeb treatments, nasal cannula O2, and BiPAP at night. She did feel extremely wobbly trying to stand and walking was very difficult requiring a lot of assistance from staff. She was recommended and evaluated for the Rehab unit to help with her recovery. She was discharged very willing and motivated to enter the Rehab unit. HPI: Patient is adjusting well to the IRF protocols. Very weak and tearful yesterday in PT when ambulating. Slow recovery predicted so I ordered 15/7 due to her severe weakness and difficulty coping. Patient's creatinine did increase to 2.75 and h/o CRI and DM nephropathy so will monitor that closely and we have DC abx that could likely be the source. Hyperglycemia from steroids continue and she has severe insulin resistance. Patient denies pain and no BM for several days and cath was DC so will work towards increasing strength and be able to DC home with . Source: patient Exam Limitations: no limitations Date Seen 01/14/19 Time Seen by a Provider: 08:00 Attending Physician Shanae Lopez DO PCP Obdulio Cabral MD Referring Physician Date of Admission Jan 13, 2019 at 11:15 Home Medications & Allergies Home Medications Reviewed patient Home Medication Reconciliation performed by pharmacy medication reconciliations composite technician and/or nursing. Patients Allergies have been reviewed. Allergies Allergies Coded Allergies morphine (Verified Adverse Reaction, Severe, hallucination, 07/12/18) Past Qyqablu-Gkmprk-Bjmrrr Hx Past Med/Social Hx: Reviewed Nursing Past Med/Soc Hx, Reviewed and Corrections made Patient Social History Marrital Status: Employed/Student: unemployed Alcohol Use: Denies Use Recreational Drug Use: No Smoking Status: Former Smoker Former Smoker, Quit: Mar 24, 1997 Type Used: Cigarettes 2nd Hand Smoke Exposure: No Physical Abuse Screen: No Sexual Abuse: No Recent Foreign Travel: No Contact w/other who traveled: No Recent Hopitalizations: Yes Recent Infectious Disease Expo: No Immunizations Up To Date Tetanus Booster (TDap): Unknown Pediatric: Yes Date of Pneumonia Vaccine: Mar 05, 2013 Date of Influenza Vaccine: Jan 12, 2019 Seasonal Allergies Seasonal Allergies: No Past Medical History Surgeries: Coronary Stent, Gallbladder, Hysterectomy, Orthopedic Respiratory: COPD, Pneumonia, Sleep Apnea Currently Using CPAP: Yes Cardiac: Atrial Fibrillation, Coronary Artery Disease, High Cholesterol, Hypertension : No Reproductive: No Genitourinary: Bladder Infection, Renal Failure Gastrointestinal: Gastroesophageal Reflux, Chronic Constipation, Pancreatitis Musculoskeletal: Arthritis Endocrine: Diabetes, Insulin dep, Diabetes, Non-Insulin dep Are Your Blood Sugars Over 250: Yes (SOMETIMES) Loss of Vision: Denies Hearing Impairment: Denies Psychosocial: Anxiety History of Blood Disorders: No Family History Diabetes, Hypertension Review of Systems Constitutional: see HPI, malaise, weakness EENTM: no symptoms reported Respiratory: dyspnea on exertion, short of breath Cardiovascular: no symptoms reported Gastrointestinal: no symptoms reported Genitourinary: decreased output Musculoskeletal: back pain, joint pain Skin: no symptoms reported Psychiatric/Neurological: Anxiety, Depressed, Emotional Problems Physical Exam Exam Vital Signs Vital Signs Date Time Temp Pulse Resp B/P (MAP) Pulse Ox O2 Delivery O2 Flow Rate FiO2 01/14/19 08:05 36.3 110 92 01/14/19 07:06 Nasal Cannula 2.00 01/14/19 05:45 22 153/69 (97) Capillary Refill : Less Than 3 Seconds General Appearance: No Apparent Distress, WD/WN, Anxious, Chronically ill HEENT: PERRL/EOMI, Normal ENT Inspection, Pharynx Normal, Moist Mucous Membranes Neck: Full Range of Motion, Normal Inspection, Non Tender, Supple Respiratory: Chest Non Tender, No Accessory Muscle Use, No Respiratory Distress, Crackles, Decreased Breath Sounds, Wheezing Cardiovascular: No Edema, No Gallop, No JVD, No Murmur, Irregularly Irregular Gastrointestinal: Normal Bowel Sounds, No Organomegaly, No Pulsatile Mass, Non Tender, Soft Back: Normal Inspection, No CVA Tenderness, No Vertebral Tenderness Extremity: Normal Capillary Refill, Normal Inspection, Normal Range of Motion, Non Tender, No Calf Tenderness, No Pedal Edema Neurologic/Psychiatric: Alert, Oriented x3, No Motor/Sensory Deficits (generalized all extremites), Normal Mood/Affect Skin: Normal Color, Warm/Dry Lymphatic: No Adenopathy Results Results/Procedures Labs Patient resulted labs reviewed. Assessment/Plan Assessment and Plan Assess & Plan/Chief Complaint Assessment: Respiratory failure now improved off biPAP and Vapotherm Severe COPD Former smoker AF OAC ARF on CRI HTN Plan: IRF protocols with 03/10 for expected slow recovery due to severe weakness Monitor oxygen and creatinine O2 Nebs (1) Respiratory failure Status: Acute (2) BiPAP (biphasic positive airway pressure) dependence (3) Hyperkalemia Status: Acute (4) Hyperphosphatemia Status: Acute (5) DVT prophylaxis Status: Acute (6) Elevated AST (SGOT) Status: Acute (7) COPD (chronic obstructive pulmonary disease) (8) Debility (9) Acute renal insufficiency Status: Acute (10) Diabetes mellitus, type 2 Status: Chronic (11) CKD (chronic kidney disease) Status: Chronic (12) A-fib (13) GERD (gastroesophageal reflux disease) Status: Chronic (14) HTN (hypertension) Status: Chronic (15) HLD (hyperlipidemia) Status: Chronic Post Admission Physician Asses Date seen by provider: Jan 14, 2019 Time seen by provider: 08:00 Admisison Dx: (1) COPD (chronic obstructive pulmonary disease) (2) Debility The preadmission screen agrees with the post admission assessment that the patient is a good candidate for inpatient rehabilitation. The patient will have a comprehensive program of inpatient rehabilitation with a goal of maximizing level of functional independence prior to discharge home with family. The patient will have PT/OT ninety minutes per day, each discipline, five days a week for gait, strengthening, conditioning, balance, ADLs, any patient/family/caregiver training as necessary. Speech therapy to do cognitive assessment and treat as indicated. Rehabilitation nursing to assist with bowel, bladder, skin, wound care, medication administration, pain management. Custodial Operations Manager to assist with discharge planning, community reentry. SCD's for DVT prophylaxis. She appears to be well motivated to participate in three hours of therapy a day. She should be able to tolerate three hours of therapy a day from a medical standpoint. She should benefit from the three hours of therapy a day. She has a reasonable discharge plan, reasonable discharge rehabilitation goals and a supportive family. She has various comorbidities that need to be closely monitored with medications and treatments adjusted on a daily basis as needed. These include: see list Barriers to discharge for this patient who had been independent prior to this are for her to be modified independent to supervision for ADLs and mobility skills prior to discharge home with family, so as to lessen the burden of the caregivers. Risks for this patient include: 1. Fall 2. Fracture 3. DVT 4. Pulmonary embolism 5. Wound infection 6. Skin breakdown 7. Contractures 8. Poorly controlled pain 9. Urinary retention 10. UTI 11. Respiratory infection 12. Aspiration Estimated Length of Stay: 14 days Prognosis: Rehab prognosis appears good for goal of discharge home with family modified independent to supervision for ADLs and mobility skills. SHANAE LOPEZ DO Jan 14, 2019 08:29
[2019-01-14 08:52] LABS: BASOPHILS % (AUTO) 0 % (0-10); EOSINOPHILS % (AUTO) 0 % (0-10); HEMATOCRIT 32 % (35-52); HEMOGLOBIN 9.7 G/DL (11.5-16.0); LYMPHOCYTES # (AUTO) 1.9 X 10^3 (1.0-4.0); LYMPHOCYTES % (AUTO) 14 % (12-44); MEAN CORPUSCULAR HEMOGLOBIN 26 PG (25-34); MEAN CORPUSCULAR HGB CONC 31 G/DL (32-36); MEAN CORPUSCULAR VOLUME 86 FL (80-99); MEAN PLATELET VOLUME 10.6 FL (7.4-10.4); MONOCYTES # (AUTO) 0.8 X 10^3 (0.0-1.0); MONOCYTES % (AUTO) 6 % (0-12); NEUTROPHILS # (AUTO) 11.5 X 10^3 (1.8-7.8); NEUTROPHILS % (AUTO) 80 % (42-75); PLATELET COUNT 349 10^3/uL (130-400); RED CELL DISTRIBUTION WIDTH 14.7 % (10.0-14.5); WHITE BLOOD COUNT 14.3 10^3/uL (4.3-11.0)
[2019-01-14] MEDS ORDERED: DILTIAZEM 120 MG (CARDIZEM CD) CAP PO SCH (09:00)
[2019-01-14 09:08] LABS: ALBUMIN 3.5 GM/DL (3.2-4.5); BILIRUBIN,TOTAL 0.3 MG/DL (0.1-1.0); CALCIUM 9.4 MG/DL (8.5-10.1); CREATININE SERUM 2.08 MG/DL (0.60-1.30); POTASSIUM 4.9 MMOL/L (3.6-5.0); TOTAL PROTEIN 7.7 GM/DL (6.4-8.2)
[2019-01-14 09:31] LABS: BAND NEUTROPHILS 2 %; LYMPHOCYTES % (MANUAL) 11 %; MONOCYTES % (MANUAL) 6 %; NEUTROPHILS % (MANUAL) 81 %; RBC MORPH NORMAL
[2019-01-14 09:32] LABS: TOXIC GRANULATION/VACUOLAZATIO 1+
[2019-01-14] MEDS: DRONEDARONE TABLET 400 MG TABLET PO SCH ×2 (09:41→20:49)
[2019-01-14] MEDS: ASPIRIN E.C. 81 MG (ECOTRIN) TAB PO SCH (09:41)
[2019-01-14] MEDS: SENNA W/DOCUSATE (SENOKOT S) TABLET PO SCH ×2 (09:41→20:47)
[2019-01-14] MEDS: ISOSORBIDE MONONITRATE 60 MG (IMDUR) TAB PO SCH (09:42)
[2019-01-14] MEDS: cloNIDine 0.1 MG (CATAPRES) TAB PO SCH ×2 (09:42→20:49)
[2019-01-14] MEDS: PANTOPRAZOLE 40 MG (PROTONIX) TAB PO SCH (09:42)
[2019-01-14] MEDS: GABAPENTIN 600 MG (NEURONTIN) TAB PO SCH ×2 (09:42→20:49)
[2019-01-14] MEDS: methylPREDNISolone 40 MG/ML (Solu-MEDROL) VIAL IV SCH ×2 (09:42→20:48)
--- NOTE | 2019-01-14 10:27 | Cardiology Progress Note ---
Subjective Date Seen by Provider: Jan 14, 2019 Time Seen by Provider: 10:25 Subjective/Events-last exam patient is sitting in a chair, feeling better. No new complaint Review of Systems General: No Chills, No Night Sweats; Fatigue, Malaise; No Appetite, No Other HEENT: No Head Aches, No Visual Changes, No Eye Pain, No Ear Pain, No Dysphasia, No Sinus Congestion, No Post Nasal Drip, No Sore Throat, No Other Pulmonary: Dyspnea; No Cough, No Pleuritic Chest Pain, No Other Cardiovascular: No: Chest Pain, Palpitations, Orthopnea, Paroxysmal Noc. Dyspnea, Edema, Lt Headedness, Other Objective-Cardiology Exam Last Set of Vital Signs Vital Signs 01/14/19 01/14/19 01/14/19 05:45 07:06 08:05 Temp 36.3 Pulse 110 Resp 22 B/P (MAP) 153/69 (97) Pulse Ox 92 O2 Delivery Nasal Cannula O2 Flow Rate 2.00 Capillary Refill : Less Than 3 Seconds I&O Intake and Output 01/14/19 00:00 Daily Weight Change No General: Alert, Oriented X3, Cooperative HEENT: Atraumatic, PERRLA Neck: Supple, No JVD, No Thyromegaly Lungs: Normal Air Movement, Other (Bilateral rhonchi) Heart: Normal S1, Normal S2, No Murmurs, Other (Irregular) Abdomen: Normal Bowel Sounds, Soft, No Tenderness, No Hepatosplenomegaly, No Masses Extremities: No Clubbing, No Cyanosis, Normal Pulses, No Tenderness/Swelling, Other (Mild edema) Skin: No Rashes, No Breakdown, No Significant Lesion Neuro: Normal Gait, Normal Speech, Strength at 5/5 X4 Ext, Normal Tone, Sensation Intact Psych/Mental Status: Mental Status NL, Mood NL Results Lab Laboratory Tests 01/14/19 08:46 A/P-Cardiology Assessment/Plan status post respiratory failure, better at this time, has history of severe COPD with multiple exacerbation. Acute renal failure, renal function improving slowly, currently Lasix and lisinopril are on hold Paroxysmal atrial fibrillation, back in atrial fibrillation, had history of cardioversion, started on Cardizem and tolerating medication well. Continue to monitor Sinus node dysfunction with history of severe bradycardia, monitor heart rate closely. Mild elevation in troponin level, no active chest pain, no acute EKG changes, probably due to hypoxemia and small vessel disease. Medical therapy is recommended continue to monitor Type II myocardial infarction secondary to hypoxemia, last cardiac catheterization as described below Coronary artery disease, history of stent placement 2 to the LAD. In August 2013 cardiac cath revealed patent stents to LAD, known to have Taxus 320 mm stent in the mid LAD, proximal to that there was a stent placed in 2011 which is 312 mm Ion stent. Both are patent with 40-50 percent in-stent restenosis. Secondary branch had 90 percent stenosis at the ostium. Small artery, not amendable to intervention. Another cardiac catheterization February 2015 showing patent stents in the proximal LAD with 50 percent stenosis beyond the stent and 50 percent stenosis at the midportion of the LAD small vessel disease distally, moderate 40-50 percent stenosis in the right coronary artery with multiple segment of the proximal, mid and distal portion. Cardiac catheterization done March 05, 2017 revealed severe LAD stenosis beyond the previously known stent 3.0. Successful primary stenting using 3.08 mm ALPINE expanded to 3.5 with excellent results, balloon for in-stent restenosis also was made. Most recent cardiac catheterization done March 09, 2018 revealed patent stent with small vessel disease, no intervention required. continue to monitor [id number] score of 4, yearly risk of stroke without oral anticoagulation is 4 percent. Maintained on Xarelto 15mg. Hypertension, continue on current medication monitor blood pressure Renal arterial duplex done July 2015 revealed proximal right renal artery not evaluated, other segments of the left renal artery demonstrated no evidence of significant stenosis, continue to monitor Hyperlipidemia, continue to monitor lipids Obstructive sleep apnea, using C Pap, using oxygen as needed Nonobstructive carotid artery stenosis per carotid duplex done in February 2018, continue to monitor. Diabetes mellitus-managed by primary care physician Chronic pain, followed and managed by primary care physician Obesity, BMI is 37, discussed diet and exercise for weight loss. Clinical Quality Measures DVT/VTE Risk/Contraindication: Risk Factor Score Per Nursin RFS Level Per Nursing on Admit: 4+=Very High BOOM MILLER MD Jan 14, 2019 10:27
[2019-01-14] MEDS ORDERED: DILTIAZEM 180 MG (CARDIZEM CD) CAP PO NR (10:30)
--- NOTE | 2019-01-14 11:44 | Physical Therapy Daily Note ---
PT Daily Note-Current Subjective Pt sitting in recliner upon arrival. Pt agrees to PT for ambulation. Pain Location: No Pain Reported Mental Status Patient Orientation: Person, Place, Situation Attachments: Oxygen (2L) Transfers SCALE: Activities may be completed with or without assistive devices. 3-Nwuznstbqg-euiskmw completes the activity by him/herself with no assistance from a helper. 5-Set-up or Clean-up Assistance-helper sets up or cleans up; patient completes activity. [place] assists only prior to or following the activity. 4-Supervision or Touching Assistance-helper provides verbal cues and/or touching/steadying and/or contact guard assistance as patient completes activity. Assistance may be provided throughout the activity or intermittently. 3-Partial/Moderate Assistance-helper does LESS THAN HALF the effort. [place] li fts, holds or supports trunk or limbs, but provides less than half the effort. 2-Substantial/Maximal Assistance-helper does MORE THAN HALF the effort. [place] lifts or holds trunk or limbs and provides more than half the effort. 1-Luzjbzxkd-hyrjxg does ALL the effort. Patient does none of the effort to complete the activity. Or, the assistance of 2 or more helpers is required for the patient to complete the activity. If activity was not attempted, code reason: 7-Patient Refused. 9-Not Applicable-not attempted and the patient did not perform the activity before the current illness, exacerbation or injury. 10-Not Attempted due to Environmental Limitations-(lack of equipment, weather restraints, etc.). 88-Not Attempted due to Medical Conditions or Safety Concerns. Sit to Stand (QC): 5 Weight Bearing Right Lower Extremity: Right Weight Bearing/Tolerated Left Lower Extremity: Left Weight Bearing/Tolerated Gait Training Does the Patient Walk?: Yes Gait: 5 Distance: 150' x2 Walk 10 feet (QC): 5 Walk 50 ft with 2 Turns(QC): 5 Walk 150 ft (QC): 5 Gait Persons Needed: 1 Gait Assistive Device: FWW Pt walks with slow but steady myra. Pt is encouraged to take longer strides, bigger steps. Wheelchair Training Does the Pt Use a Wheelchair?: No Treatments Pt transfers from recliner to standing. Pt uses restroom then ambulates in hallway taking RB as needed. Pt returns to room at end of walk to rest in recliner with all needs met, call light next to pt. Assessment Current Status: Good Progress Pt needs encouragement, pt gets anxious during Rx. PT Short Term Goals Short Term Goals Time Frame: Jan 20, 2019 Gait Distance Comment: 150' Gait Assistive Device: FWW (SBA) PT Intermediate Goals Intermediate Goals PT Medical Diagnostic Radiographer Goals Time Frame: Feb 03, 2019 Sit to Lying (QC): 6 Lying-Sitting on Side/Bed(QC): 6 Sit to Stand (QC): 6 Roll Left to Right (QC): 6 Chair/Hnh-xf-Kmcns Xfer(QC): 6 Car Transfer (QC): 6 Does the Patient Walk: Yes Distance: 300' Walk 10 feet (QC): 6 Walk 10ft-Uneven Surface(QC): 4 (SBA) Walk 50ft with 2 Turns (QC): 6 Walk 150 ft (QC): 6 Gait Assistive Device: FWW Does the Pt use WC or Scooter?: No # of Steps: 4 1 Step (curb) (QC): 4 (SBA) 4 Steps (QC): 4 (SBA) Picking up an Object (QC): 4 (SBA) PT Plan Problem List Problem List: Activity Tolerance, Functional Strength, Safety, Gait Treatment/Plan Treatment Plan: Continue Plan of Care Treatment Plan: Bed Mobility, Education, Functional Activity Diane, Functional Strength, Group Therapy, Gait, Safety, Therapeutic Exercise, Transfers Treatment Duration: Feb 03, 2019 Frequency: At least 5 of 7 days/Wk (IRF) Estimated Hrs Per Day: 1.5 hours per day Patient and/or Family Agrees t: Yes Safety Risks/Education Patient Education: Gait Training, Transfer Techniques, Correct Positioning, Safety Issues Teaching Recipient: Patient Teaching Methods: Discussion Response to Teaching: Verbalize Understanding Time/GCodes Time In: 1100 Time Out: 1130 Total Billed Treatment Time: 30 Total Billed Treatment 1, GT x2 (30m) ALEX ASHLEY AUDIO VISUAL ARTS DIRECTOR Jan 14, 2019 11:44
[2019-01-14] MEDS ORDERED: FLEET ENEMA ADULT 1 EA BTL PR PRN (14:00)
[2019-01-14] MEDS ORDERED: BISACODYL 10 MG SUPP (DULCOLAX) PR PRN (14:00)
[2019-01-14] MEDS: LACTULOSE SYRUP 10GM/15ML (ENULOSE) 30ML UDC PO SCH ×2 (14:38→20:50)
[2019-01-14] MEDS: POLYETHYLENE GLYCOL 17 GM (MIRALAX) PACK PO SCH ×2 (14:38→20:50)
[2019-01-14 18:00] VITALS: BP 132/72
[2019-01-14] MEDS: RIVAROXABAN 15 MG TABLET (XARELTO) PO SCH (18:56)
--- NOTE | 2019-01-14 19:05 | NUR ---
bedside report received from JOSEY VIVAR, assume care of pt
[2019-01-14 20:40] VITALS: BP 147/79
[2019-01-14] MEDS: FENOFIBRATE 134 MG (LOFIBRA) CAPSULE PO SCH (20:47)
[2019-01-14] MEDS: MAGNESIUM OXIDE (MAG-OX)400 MG TAB PO SCH (20:48)
[2019-01-14] MEDS: PRIMIDONE 50 MG TAB (MYSOLINE) PO SCH (20:49)
--- NOTE | 2019-01-14 21:00 | NUR ---
had large hard brown stool, pt took laxatives because stool hard & took days to pass, pt up to bathroom with 1 person assist & walker, does get short of air with activity, 02 sat 95% on 2l/m of 02
[2019-01-15 05:34] VITALS: BP 135/76
[2019-01-15] MEDS: POTASSIUM CL 10MEQ/50ML IVPB 50 ML IV SCH (06:00)
[2019-01-15] MEDS: inSUlin ASPART (NovoLOG) 1 UNIT/0.01 ML (CHARGE PER UNIT) SC SCH ×4 (06:00→19:52)
--- NOTE | 2019-01-15 07:12 | NUR ---
bedside report given to RUDDY VIVAR
--- NOTE | 2019-01-15 09:11 | Individualized Plan of Care ---
Individualized Plan of Care Rehab Nursing IPOC Order Admission Date Jan 13, 2019 at 11:15 Current Orders Orders Admission Order(Inpt,Obs,Sdc) (01/13/19 10:26) Vital Signs: Per Unit Policy ( 08,16,00 (01/13/19 10:26) Record Label Intern-Inpt Rehab Con (01/13/19 10:26) Rehab Nursing Orders-Ipoc (01/13/19 10:26) Physical Therapy Rehab Orders (01/13/19 10:26) Occupational Therapy Rehab Ord (01/13/19 10:26) Speech Therapy Rehab Orders (01/13/19 10:26) Precautions (Aru) (01/13/19 10:26) Rehab-Intensity Of Therapy (01/13/19 10:26) Initiate Admission Nursing Pro .admission (01/13/19 10:26) Initiate Admission Nursing Pro .admission (01/13/19 10:26) Admission Arrival Bed Request (01/13/19 11:15) Code/Resuscitation (01/13/19 11:39) Accucheck 2 Hr Postpr & Fastin 0930,1430,1930 (01/13/19 11:39) Catheter(Urinary) Discontinue (01/13/19 11:39) Initiate Admission Nursing Pro .admission (01/13/19 11:39) Oxygen-Administer (01/13/19 11:39) Weight Bearing Status (01/13/19 11:39) Cho 60g/M 3snack (16-2000 Michele) (01/13/19 Dinner) Acetaminophen Tablet/Caplet (Tylenol T (01/13/19 11:45) Albuterol Pre-Mix Nebs (Rt) (Proventil (01/13/19 11:45) Albuterol/Ipra Inhalation Soln (Duoneb I (01/13/19 14:00) Aspirin Enteric Coated Tablet (Ecotrin T (01/14/19 09:00) Atorvastatin Tablet (Lipitor) (01/13/19 21:00) Calcium Carbonate Chew Tablet (Antacid C (01/13/19 11:45) Cyclobenzaprine Tablet (Flexeril Tablet) (01/13/19 11:45) Diltiazem Cd 24 Hr Capsule (Cardizem Cd (01/14/19 09:00) Docusate Sodium Capsule (Colace Capsule) (01/13/19 11:45) Dronedarone Tablet (Multaq Tablet) (01/13/19 21:00) Fenofibrate,Micronized Capsule (Lofibra (01/13/19 21:00) Gabapentin Capsule/Tablet (Neurontin Cap (01/13/19 21:00) Hydrocodone/Apap 10/325 Tablet (Lortab 1 (01/13/19 11:45) Isosorbide Mononitrate Tablet (Imdur Tab (01/14/19 09:00) Potassium Cl 10meq/50ml Ivpb (Kcl 10 Meq (01/14/19 06:00) Lorazepam Injection (Ativan Injection) (01/13/19 11:45) Loperamide Tablet (Imodium Tablet) (01/13/19 11:45) Magnesium Oxide Tablet (Mag Ox Tablet) (01/13/19 21:00) Melatonin Tablet (Melatonin Tablet) (01/13/19 11:45) Ondansetron Injection (Zofran Injectio (01/13/19 11:45) Pantoprazole Tablet (Protonix Tablet) (01/14/19 09:00) Primidone Tablet (Mysoline Tablet) (01/13/19 21:00) Rivaroxaban Tablet (Xarelto Tablet) (01/13/19 17:00) Senna S Tablet (Senokot S Tablet) (01/13/19 21:00) Senna S Tablet (Senokot S Tablet) (01/13/19 11:45) Sodium Chloride Flush (Catheter Flush Sy (01/13/19 11:45) Clonidine Tablet (Catapres Tablet) (01/13/19 21:00) Diphenhydramine Tablet (Benadryl Tablet) (01/13/19 11:45) Hydralazine Injection (Apresoline Inject (01/13/19 11:45) Hydralazine Tablet (Apresoline Tablet) (01/13/19 13:00) Insulin Aspart (Novolog) (Novolog (Charg (01/13/19 14:30) Insulin Determir (Per Unit) (Levemir (Pe (01/13/19 21:00) Methylprednisolone Sod Succ (Solu-Medrol (01/13/19 21:00) Consult Cardiology (01/13/19 11:39) Patient Visit (01/13/19 ) Speech Sound Lang Comp (01/13/19 ) Patient Visit (01/13/19 ) Pt Eval Moderate Complexity (01/13/19 ) Functional Activities, Ea 15 (01/13/19 ) Code/Resuscitation (01/13/19 15:20) Ambulate 08,12,20 (01/13/19 16:04) Sequential Compression Device Q4H (01/13/19 16:04) Dvt/Vte Risk - Notifiy Physici Q4H (01/13/19 16:04) Cbc With Automated Diff (01/14/19 08:21) Comprehensive Metabolic Panel (01/14/19 08:21) Albuterol/Ipra Inhalation Soln (Duoneb I (01/14/19 15:00) Mat Initiate Protocol (01/14/19 08:24) Manual Differential (01/14/19 08:46) Diltiazem Cd 24 Hr Capsule (Cardizem Cd (01/14/19 10:30) Diltiazem Cd 24 Hr Capsule (Cardizem Cd (01/15/19 09:00) Patient Visit (01/14/19 ) Gait Training, Ea 15 Min (01/14/19 ) Lactulose Oral Solution (Enulose Oral So (01/14/19 14:00) Polyethylene Glycol Powder Pkt (Miralax (01/14/19 14:00) Bisacodyl Suppository (Dulcolax Supposit (01/14/19 14:00) Na Phos/Na Biphos Enema (Fleet Enema Fabiano (01/14/19 14:00) Nursing Communication (Order) (01/14/19 13:53) Cbc With Automated Diff (01/16/19 06:00) Comprehensive Metabolic Panel (01/16/19 06:00) Rehab Nursing Orders: Ongoing Assess. of Function Status, Bladder Training, Bowel Training, Disease Management & Educaiton, DVT Prophylaxis, Fall Prevention, Fluid/Electrolyte/Nutrition Mgmt, Infection Prevention, Medication Management & Education, Management of Risks & Complications, Nutrition Management, Pain Management, Patient/Family Support, Safety Management Intensity of Therapy to be met Patient to be seen: 15 hrs over 7 cons. days PT IPOC Problem List: Activity Tolerance, Functional Strength, Safety, Gait Treatment Plan: Continue Plan of Care Bed Mobility, Education, Functional Activity Diane, Functional Strength, Group Therapy, Gait, Safety, Therapeutic Exercise, Transfers Treatment Duration: Feb 03, 2019 Frequency: At least 5 of 7 days/Wk (IRF) Estimated Hrs Per Day: 1.5 hours per day OT IPOC Problems: Decreased Activ Tolerance OT Treatment, Training and Edu: Yes Plan of Care: ADL Retraining, Caregiver Training, Functional Mobility, Group Exercise/Act as Ind, UE Funct Exercise/Act Treatment Duration: Jan 27, 2019 Frequency: At least 5 of 7 days/Wk (IRF) Estimated Hrs Per Day: 1.[address] IPOC Speech Therapy Treatment Plan: Discontinue ST Treatment Duration: Jan 13, 2019 Frequency: 1 time per week Estimated Hrs Per Day: .25 hour per day Record Label Intern/Case Mgmt Record Label Intern/Case Managemen: Discharge Planning Dietitian/Ice Cream Freezer Dietitian/Ice Cream Freezer to monitor nutritional status and make changes and/or recommendations as needed and work with speech pathology on dietary upgrades as the occur. Physician IPOC Medical Issues being managed closely and that require the 24 hour availability of a physician: Severe hyperglycemia will require close monitoring of sugar with excessively high insulin requirements in midst of steroids and bipap and vapotherm usage hx Medical Issues: Bowel/Bladder Function, DVT Prophylaxis, Falls Precautions, Fluid/Electrolyte/Nutrition Balance, Infection Protection, Pain Management Brief Synthesis of Preadmission Screen, Post-Admission Evaluation, and Therapy Evaluations: PT will focus on increasing strength with ambulation and fall risk OT will increase independence with ADL's in order to return home Medical Prognosis: Good Anticipated Length of Stay: 10 days ZACK ESCOBEDO DO Jan 15, 2019 09:11
--- NOTE | 2019-01-15 09:11 | PM&R Progress Note ---
Subjective HPI/CC On Admission Date Seen by Provider: Jan 15, 2019 Time Seen by Provider: 09:15 CC: Debility Hospital course from med-surg: Pt was admitted to the ICU from the ER for shortness of breath and chest pain with deep breathing. She was started on IV steroids, antibiotics, and placed on Vapotherm with a BiPAP at night. She improved after a couple days in the ICU and was moved to [facility]surg after stopping Vapotherm and beginning 3L O2 nasal cannula while continuing BiPAP at night. She continued to improve reporting no trouble breathing while receiving DuoNeb treatments, nasal cannula O2, and BiPAP at night. She did feel extremely wobbly trying to stand and walking was very d ifficult requiring a lot of assistance from staff. She was recommended and evaluated for the Rehab unit to help with her recovery. She was discharged very willing and motivated to enter the Rehab unit. HPI: Patient is adjusting well to the IRF protocols. Very weak and tearful yesterday in PT when ambulating. Slow recovery predicted so I ordered 03/10 due to her severe weakness and difficulty coping. Patient's creatinine did increase to 2.75 and h/o CRI and DM nephropathy so will monitor that closely and we have DC abx that could likely be the source. Hyperglycemia from steroids continue and she has severe insulin resistance. Patient denies pain and no BM for several days and cath was DC so will work towards increasing strength and be able to DC home with . Subjective/Events-last exam Patient doing very well Improved each day In chair today with O2 BM now moving well and constipation is completely resolved NO pain is reported Increased insulin requirements due to steroids Change steroid to PO Dr Luna to see her tomorrow Multaq on board Checked meds and labs Conferred with RN Reviewed therapy notes Review of Systems General: Fatigue Pulmonary: Dyspnea Objective Exam Vital Signs Vital Signs Date Time Temp Pulse Resp B/P (MAP) Pulse Ox O2 Delivery O2 Flow Rate FiO2 01/15/19 07:00 78 01/15/19 05:34 36.4 16 135/76 (95) 97 NIV Bilevel 2.00 Capillary Refill : Less Than 3 Seconds General Appearance: No Apparent Distress, WD/WN, Anxious, Chronically ill HEENT: PERRL/EOMI, Normal ENT Inspection, Pharynx Normal, Moist Mucous Membranes Neck: Full Range of Motion, Normal Inspection, Non Tender, Supple Respiratory: Chest Non Tender, No Accessory Muscle Use, No Respiratory Distress, Crackles, Decreased Breath Sounds, Wheezing Cardiovascular: No Edema, No Gallop, No JVD, No Murmur, Irregularly Irregular Gastrointestinal: Normal Bowel Sounds, No Organomegaly, No Pulsatile Mass, Non Tender, Soft Back: Normal Inspection, No CVA Tenderness, No Vertebral Tenderness Extremity: Normal Capillary Refill, Normal Inspection, Normal Range of Motion, Non Tender, No Calf Tenderness, No Pedal Edema Neurologic/Psychiatric: Alert, Oriented x3, No Motor/Sensory Deficits (generalized all extremites), Normal Mood/Affect Skin: Normal Color, Warm/Dry Lymphatic: No Adenopathy Results/Procedures Lab Patient resulted labs reviewed. FIM Transfers Therapy Code Descriptions/Definitions Functional [place] Measure: 0=Not Assessed/NA 4=Minimal Assistance 1=Total Assistance 5=Supervision or Setup 2=Maximal Assistance 6=Modified [place] 3=Moderate Assistance 7=Complete IndependenceSCALE: Activities may be completed with or without assistive devices. 6-Cdpkpasycd-axzywhq completes the activity by him/herself with no assistance from a helper. 5-Set-up or Clean-up Assistance-helper sets up or cleans up; patient completes activity. [place] assists only prior to or following the activity. 4-Supervision or Touching Assistance-helper provides verbal cues and/or touching/steadying and/or contact guard assistance as patient completes activity. Assistance may be provided throughout the activity or intermittently. 3-Partial/Moderate Assistance-helper does LESS THAN HALF the effort. [place] lifts, holds or supports trunk or limbs, but provides less than half the effort. 2-Substantial/Maximal Assistance-helper does MORE THAN HALF the effort. [place] lifts or holds trunk or limbs and provides more than half the effort. 9-Iehhekyss-gvxavk does ALL the effort. Patient does none of the effort to complete the activity. Or, the assistance of 2 or more helpers is required for the patient to complete the activity. If activity was not attempted, code reason: 7-Patient Refused. 9-Not Applicable-not attempted and the patient did not perform the activity before the current illness, exacerbation or injury. 10-Not Attempted due to Environmental Limitations-(lack of equipment, weather restraints, etc.). 88-Not Attempted due to Medical Conditions or Safety Concerns. Roll Left to Right (QC): 6 Sit to Lying (QC): 6 Sit to Stand (QC): 5 Chair/Jxa-qk-Ntpdj Xfer(QC): 4 (SBA. pt stays hunched over to stand pivot transfer.) Car Transfer (QC): 4 (SBA) Gait Training Does the Patient Walk?: Yes Gait (FIM): 5 Distance (FIM): 3=150 ft Distance: 150' x2 Walk 10 feet (QC): 5 Walk 50 ft with 2 Turns(QC): 5 Walk 150 ft (QC): 5 Walking 10ft/uneven surface-QC: 4 (CGA) Gait Persons Needed: 1 Gait Assistive Device: FWW Wheelchair Training Does the Pt Use a Wheelchair?: No Stair Training #of Steps: 1 1 Step (curb) (QC): 3 (Mari. pt accepts less weight throught the R LE to go up step ) 4 Steps (QC): 88 12 Steps (QC): 88 Balance Picking up an Object (QC): 3 (modA. Pt was unstable but able to get to pen and back up with 1 hand on FWW) ADL-Treatment Eating (QC): 6 Oral Hygiene (QC): 5 (SBA at sink with FWW) Shower/Bathe Self (QC): 3 (Pt completes showering on shower chair. SBA in stance for andreina/ bottom washing. Pt able to reach all areas with exception of bilateral feet, requires assist with washing feet.) Upper Body Dressing (QC): 5 (s/u) Lower Body Dressing (QC): 5 (s/u, completes threading on shower chair; requires SBA in stance for pull up) Toileting Hygiene (QC): 5 (SBA in stance.) Toilet Transfer (QC): 5 (SBA) Assessment/Plan Assessment and Plan Assess & Plan/Chief Complaint Assessment: Respiratory failure now improved off biPAP and Vapotherm Severe COPD Former smoker AF OAC ARF on CRI HTN Plan: IRF protocols with 03/10 for expected slow recovery due to severe weakness Monitor oxygen and creatinine O2 Nebs Much improved Dr Luna consultation due to severity of her COPD (1) COPD (chronic obstructive pulmonary disease) (2) Debility (3) Hyperkalemia Status: Acute (4) Hyperphosphatemia Status: Acute (5) Respiratory failure Status: Acute (6) BiPAP (biphasic positive airway pressure) dependence (7) DVT prophylaxis Status: Acute (8) Elevated AST (SGOT) Status: Acute (9) Acute renal insufficiency Status: Acute (10) Diabetes mellitus, type 2 Status: Chronic (11) CKD (chronic kidney disease) Status: Chronic (12) A-fib (13) GERD (gastroesophageal reflux disease) Status: Chronic (14) HTN (hypertension) Status: Chronic (15) HLD (hyperlipidemia) Status: Chronic ZACK ESCOBEDO DO Jan 15, 2019 09:11
[2019-01-15] MEDS: RT-ALBUTEROL/IPRATROPIUM 3 ML (DUONEB) VIAL INH SCH ×3 (10:00→21:27)
[2019-01-15] MEDS ORDERED: predniSONE 20 MG TAB PO NR (10:30)
[2019-01-15] MEDS: PANTOPRAZOLE 40 MG (PROTONIX) TAB PO SCH (10:40)
[2019-01-15] MEDS: ISOSORBIDE MONONITRATE 60 MG (IMDUR) TAB PO SCH (10:40)
[2019-01-15] MEDS: cloNIDine 0.1 MG (CATAPRES) TAB PO SCH ×2 (10:41→20:56)
[2019-01-15] MEDS: DILTIAZEM 240 MG (CARDIZEM CD) CAP PO SCH (10:41)
[2019-01-15] MEDS: SENNA W/DOCUSATE (SENOKOT S) TABLET PO SCH ×2 (10:42→20:55)
[2019-01-15] MEDS: ASPIRIN E.C. 81 MG (ECOTRIN) TAB PO SCH (10:42)
[2019-01-15] MEDS: GABAPENTIN 600 MG (NEURONTIN) TAB PO SCH ×2 (10:42→20:56)
[2019-01-15] MEDS: POLYETHYLENE GLYCOL 17 GM (MIRALAX) PACK PO SCH ×2 (10:42→21:08)
[2019-01-15] MEDS: LACTULOSE SYRUP 10GM/15ML (ENULOSE) 30ML UDC PO SCH ×2 (10:42→21:08)
--- NOTE | 2019-01-15 10:58 | Cardiology Progress Note ---
Subjective Date Seen by Provider: Jan 15, 2019 Time Seen by Provider: 10:57 Subjective/Events-last exam patient is sitting in a chair, feeling better, still in A. fib Review of Systems General: No Chills, No Night Sweats, No Fatigue, No Malaise, No Appetite, No Other HEENT: No Head Aches, No Visual Changes, No Eye Pain, No Ear Pain, No Dysphasia, No Sinus Congestion, No Post Nasal Drip, No Sore Throat, No Other Pulmonary: No Dyspnea, No Cough, No Pleuritic Chest Pain, No Other Cardiovascular: No: Chest Pain, Palpitations, Orthopnea, Paroxysmal Noc. Dyspnea, Edema, Lt Headedness, Other Objective-Cardiology Exam Last Set of Vital Signs Vital Signs 01/15/19 01/15/19 01/15/19 05:34 07:00 10:00 Temp 36.4 Pulse 78 Resp 16 B/P (MAP) 135/76 (95) Pulse Ox 97 O2 Delivery Nasal Cannula O2 Flow Rate 3.00 Capillary Refill : Less Than 3 Seconds I&O Intake and Output 01/15/19 00:00 Intake Total 890 ml Balance 890 ml Intake Oral 890 ml # Voids 7 # Bowel Movements 1 General: Alert, Oriented X3, Cooperative HEENT: Atraumatic, PERRLA Neck: Supple, No JVD, No Thyromegaly Lungs: Normal Air Movement, Other (Bilateral rhonchi) Heart: Normal S1, Normal S2, No Murmurs, Other (Irregular) Abdomen: Normal Bowel Sounds, Soft, No Tenderness, No Hepatosplenomegaly, No Masses Extremities: No Clubbing, No Cyanosis, Normal Pulses, No Tenderness/Swelling, Other (Mild edema) Skin: No Rashes, No Breakdown, No Significant Lesion Neuro: Normal Gait, Normal Speech, Strength at 5/5 X4 Ext, Normal Tone, Sen sation Intact Psych/Mental Status: Mental Status NL, Mood NL A/P-Cardiology Admission Diagnosis Paroxysmal atrial fibrillation Coronary artery disease Hypertension Hyperlipidemia Assessment/Plan Status post respiratory failure, better at this time, has history of severe COPD with multiple exacerbation. Acute renal failure, renal function improving slowly, currently Lasix and lisinopril are on hold Paroxysmal atrial fibrillation, back in atrial fibrillation, had history of cardioversion, started on Cardizem and tolerating medication well, continue on Multaq and monitor Sinus node dysfunction with history of severe bradycardia, monitor heart rate closely. Mild elevation in troponin level, no active chest pain, no acute EKG changes, probably due to hypoxemia and small vessel disease. Medical therapy is natali mmended continue to monitor Type II myocardial infarction secondary to hypoxemia, last cardiac catheterization as described below Coronary artery disease, history of stent placement 2 to the LAD. In August 2013 cardiac cath revealed patent stents to LAD, known to have Taxus 320 mm stent in the mid LAD, proximal to that there was a stent placed in 2011 which is 312 mm Ion stent. Both are patent with 40-50 percent in-stent restenosis. Secondary branch had 90 percent stenosis at the ostium. Small artery, not amendable to intervention. Another cardiac catheterization February 2015 showing patent stents in the proximal LAD with 50 percent stenosis beyond the stent and 50 percent stenosis at the midportion of the LAD small vessel disease distally, moderate 40-50 percent stenosis in the right coronary artery with multiple segment of the proximal, mid and distal portion. Cardiac catheterization done March 05, 2017 revealed severe LAD stenosis beyond the previously known stent 3.0. Successful primary stenting using 3.08 mm ALPINE expanded to 3.5 with excellent results, balloon for in-stent restenosis also was made. Most recent cardiac catheterization done March 09, 2018 revealed patent stent with small vessel disease, no intervention required. continue to monitor [id number] score of 4, yearly risk of stroke without oral anticoagulation is 4 percent. Maintained on Xarelto 15mg. Hypertension, continue on current medication monitor blood pressure Renal arterial duplex done July 2015 revealed proximal right renal artery not evaluated, other segments of the left renal artery demonstrated no evidence of significant stenosis, continue to monitor Hyperlipidemia, continue to monitor lipids Obstructive sleep apnea, using C Pap, using oxygen as needed Nonobstructive carotid artery stenosis per carotid duplex done in February 2018, continue to monitor. Diabetes mellitus-managed by primary care physician Chronic pain, followed and managed by primary care physician Obesity, BMI is 37, discussed diet and exercise for weight loss. Clinical Quality Measures DVT/VTE Risk/Contraindication: Risk Factor Score Per Nursin RFS Level Per Nursing on Admit: 4+=Very High BOOM MILLER MD Jan 15, 2019 10:58
[2019-01-15] MEDS: DRONEDARONE TABLET 400 MG TABLET PO SCH ×2 (11:01→20:55)
[2019-01-15] MEDS: RIVAROXABAN 15 MG TABLET (XARELTO) PO SCH (17:22)
[2019-01-15 18:00] VITALS: BP 116/70
--- NOTE | 2019-01-15 19:03 | NUR ---
bedside report received from RUDDY VIVAR, assume care of pt
[2019-01-15 20:48] VITALS: BP 143/78
[2019-01-15] MEDS: MAGNESIUM OXIDE (MAG-OX)400 MG TAB PO SCH (20:56)
[2019-01-15] MEDS: FENOFIBRATE 134 MG (LOFIBRA) CAPSULE PO SCH (20:56)
[2019-01-15] MEDS: PRIMIDONE 50 MG TAB (MYSOLINE) PO SCH (20:56)
--- NOTE | 2019-01-15 20:56 | NUR ---
pt refused miralax & Enulose, took Senokot, pt less fatigued with activity today
[2019-01-15 21:01] VITALS: BP 143/78
[2019-01-15] MEDS: CATHETER FLUSH 10 ML SYR IV PRN (22:54)
[2019-01-16] MEDS: RT-ALBUTEROL/IPRATROPIUM 3 ML (DUONEB) VIAL INH SCH ×4 (02:02→21:17)
[2019-01-16 05:30] VITALS: BP 153/78
[2019-01-16 05:32] LABS: BASOPHILS % (AUTO) 0 % (0-10); EOSINOPHILS % (AUTO) 0 % (0-10); HEMATOCRIT 32 % (35-52); HEMOGLOBIN 9.8 G/DL (11.5-16.0); LYMPHOCYTES # (AUTO) 1.2 X 10^3 (1.0-4.0); LYMPHOCYTES % (AUTO) 11 % (12-44); MEAN CORPUSCULAR HEMOGLOBIN 27 PG (25-34); MEAN CORPUSCULAR HGB CONC 31 G/DL (32-36); MEAN CORPUSCULAR VOLUME 86 FL (80-99); MEAN PLATELET VOLUME 10.4 FL (7.4-10.4); MONOCYTES # (AUTO) 0.7 X 10^3 (0.0-1.0); MONOCYTES % (AUTO) 6 % (0-12); NEUTROPHILS # (AUTO) 9.3 X 10^3 (1.8-7.8); NEUTROPHILS % (AUTO) 83 % (42-75); PLATELET COUNT 288 10^3/uL (130-400); RED CELL DISTRIBUTION WIDTH 14.8 % (10.0-14.5); WHITE BLOOD COUNT 11.2 10^3/uL (4.3-11.0)
[2019-01-16 05:59] LABS: ALBUMIN 3.5 GM/DL (3.2-4.5); BILIRUBIN,TOTAL 0.3 MG/DL (0.1-1.0); CALCIUM 9.3 MG/DL (8.5-10.1); CREATININE SERUM 1.73 MG/DL (0.60-1.30); POTASSIUM 5.4 MMOL/L (3.6-5.0); TOTAL PROTEIN 7.2 GM/DL (6.4-8.2)
[2019-01-16] MEDS: POTASSIUM CL 10MEQ/50ML IVPB 50 ML IV SCH (06:00)
[2019-01-16] MEDS: inSUlin ASPART (NovoLOG) 1 UNIT/0.01 ML (CHARGE PER UNIT) SC SCH ×4 (06:00→21:06)
--- NOTE | 2019-01-16 07:11 | NUR ---
bedside report given to CHRISTAL VIVAR
[2019-01-16] MEDS: predniSONE 20 MG TAB PO SCH (07:43)
[2019-01-16 08:03] VITALS: BP 135/69
[2019-01-16] MEDS: DRONEDARONE TABLET 400 MG TABLET PO SCH ×2 (08:04→21:06)
[2019-01-16] MEDS: PANTOPRAZOLE 40 MG (PROTONIX) TAB PO SCH (08:04)
[2019-01-16] MEDS: ISOSORBIDE MONONITRATE 60 MG (IMDUR) TAB PO SCH (08:05)
[2019-01-16] MEDS: ASPIRIN E.C. 81 MG (ECOTRIN) TAB PO SCH (08:05)
[2019-01-16] MEDS: SENNA W/DOCUSATE (SENOKOT S) TABLET PO SCH ×2 (08:05→21:08)
[2019-01-16] MEDS: DILTIAZEM 240 MG (CARDIZEM CD) CAP PO SCH (08:05)
[2019-01-16] MEDS: cloNIDine 0.1 MG (CATAPRES) TAB PO SCH ×2 (08:05→21:07)
[2019-01-16] MEDS: GABAPENTIN 600 MG (NEURONTIN) TAB PO SCH ×2 (08:05→21:07)
[2019-01-16] MEDS: LACTULOSE SYRUP 10GM/15ML (ENULOSE) 30ML UDC PO SCH ×2 (08:06→21:07)
[2019-01-16] MEDS: POLYETHYLENE GLYCOL 17 GM (MIRALAX) PACK PO SCH ×2 (08:10→21:08)
--- NOTE | 2019-01-16 08:33 | Cardiology Progress Note ---
Subjective Date Seen by Provider: Jan 16, 2019 Time Seen by Provider: 08:10 Subjective/Events-last exam Patient sitting up in chair, c/o mild dyspnea. Denies any chest pain or lightheadedness. Review of Systems General: No Chills, No Night Sweats, No Fatigue, No Malaise, No Appetite, No Ot her HEENT: No Head Aches, No Visual Changes, No Eye Pain, No Ear Pain, No Dysp hasia, No Sinus Congestion, No Post Nasal Drip, No Sore Throat, No Other Pulmonary: Dyspnea; No Cough, No Pleuritic Chest Pain, No Other Cardiovascular: No: Chest Pain, Palpitations, Orthopnea, Paroxysmal Noc. Dyspnea, Edema, Lt Headedness, Other Objective-Cardiology Exam Last Set of Vital Signs Vital Signs 01/16/19 01/16/19 01/16/19 05:30 08:03 10:04 Temp 36.1 Pulse 85 Resp 22 B/P (MAP) 135/69 (91) Pulse Ox 97 O2 Delivery Nasal Cannula O2 Flow Rate 2.00 Capillary Refill : Less Than 3 Seconds I&O Intake and Output 01/16/19 00:00 Intake Total 910 ml Output Total 3 ml Balance 907 ml Intake Oral 910 ml Output Urine Total 3 ml # Voids 2 # Bowel Movements 2 General: Alert, Oriented X3, Cooperative HEENT: Atraumatic, PERRLA Neck: Supple, No JVD, No Thyromegaly Lungs: Normal Air Movement, Other (Bilateral rhonchi) Heart: Normal S1, Normal S2, No Murmurs, Other (Irregular) Abdomen: Normal Bowel Sounds, Soft, No Tenderness, No Hepatosplenomegaly, No Masses Extremities: No Clubbing, No Cyanosis, Normal Pulses, No Tenderness/Swelling, Other (Mild edema) Skin: No Rashes, No Breakdown, No Significant Lesion Neuro: Normal Gait, Normal Speech, Strength at 5/5 X4 Ext, Normal Tone, Sensation Intact Psych/Mental Status: Mental Status NL, Mood NL Results Lab Laboratory Tests 01/16/19 04:50 A/P-Cardiology Admission Diagnosis Paroxysmal atrial fibrillation Coronary artery disease Hypertension Hyperlipidemia Assessment/Plan Status post respiratory failure, better at this time, has history of severe COPD with multiple exacerbation. Acute renal failure, renal function improving slowly, currently Lasix and lisinopril are on hold Paroxysmal atrial fibrillation, back in atrial fibrillation, had history of cardioversion, started on Cardizem and tolerating medication well, continue on Multaq and monitor Sinus node dysfunction with history of severe bradycardia, monitor heart rate closely. Mild elevation in troponin level, no active chest pain, no acute EKG changes, probably due to hypoxemia and small vessel disease. Medical therapy is recommended continue to monitor Type II myocardial infarction secondary to hypoxemia, last cardiac catheteriza tion as described below Coronary artery disease, history of stent placement 2 to the LAD. In August 2013 cardiac cath revealed patent stents to LAD, known to have Taxus 320 mm stent in the mid LAD, proximal to that there was a stent placed in 2011 which is 312 mm Ion stent. Both are patent with 40-50 percent in-stent restenosis. Secondary branch had 90 percent stenosis at the ostium. Small artery, not amendable to intervention. Another cardiac catheterization February 2015 showing patent stents in the proximal LAD with 50 percent stenosis beyond the stent and 50 percent stenosis at the midportion of the LAD small vessel disease distally, moderate 40-50 percent stenosis in the right coronary artery with multiple segment of the proximal, mid and distal portion. Cardiac catheterization done March 05, 2017 revealed severe LAD stenosis beyond the previously known stent 3.0. Successful primary stenting using 3.08 mm ALPINE expanded to 3.5 with excellent results, balloon for in-stent restenosis also was made. Most recent cardiac catheterization done March 09, 2018 revealed patent stent with small vessel disease, no intervention required. continue to monitor [id number] score of 4, yearly risk of stroke without oral anticoagulation is 4 percent. Maintained on Xarelto 15mg. Hyperkalemia- continue to monitor. Hypertension, continue on current medication monitor blood pressure Renal arterial duplex done July 2015 revealed proximal right renal artery not evaluated, other segments of the left renal artery demonstrated no evidence of significant stenosis, continue to monitor Hyperlipidemia, continue to monitor lipids Obstructive sleep apnea, using C Pap, using oxygen as needed Nonobstructive carotid artery stenosis per carotid duplex done in February 2018, continue to monitor. Diabetes mellitus-managed by primary care physician Chronic pain, followed and managed by primary care physician Obesity, BMI is 37, discussed diet and exercise for weight loss. Patient was seen and evaluated with Kaela, examination performed, management plan was discussed, agree with the current scribed note, I made few changes to the note using Italic font Patient was sitting in a chair receiving respiratory treatment Lungs were clear to auscultation, heart is irregular Still in atrial fibrillation with controlled heart rate Continue on current medication monitor blood pressure and lipids Clinical Quality Measures DVT/VTE Risk/Contraindication: Risk Factor Score Per Nursin RFS Level Per Nursing on Admit: 4+=Very High KAELA CAPPS Jan 16, 2019 8:33 am BOOM MILLER MD Jan 16, 2019 11:02 am
--- NOTE | 2019-01-16 09:02 | PM&R Progress Note ---
Subjective HPI/CC On Admission Date Seen by Provider: Jan 16, 2019 Time Seen by Provider: 08:30 CC: Debility Hospital course from med-surg: Pt was admitted to the ICU from the ER for shortness of breath and chest pain with deep breathing. She was started on IV steroids, antibiotics, and placed on Vapotherm with a BiPAP at night. She improved after a couple days in the ICU and was moved to med/surg after stopping Vapotherm and beginning 3L O2 nasal cannula while continuing BiPAP at night. She continued to improve reporting no trouble breathing while receiving DuoNeb treatments, nasal cannula O2, and BiPAP at night. She did feel extremely wobbly trying to stand and walking was very difficult requiring a lot of assistance from staff. She was recommended and evaluated for the Rehab unit to help with her recovery. She was discharged very willing and motivated to enter the Rehab unit. HPI: Patient is adjusting well to the IRF protocols. Very weak and tearful yesterday in PT when ambulating. Slow recovery predicted so I ordered 03/10 due to her severe weakness and difficulty coping. Patient's creatinine did increase to 2.75 and h/o CRI and DM nephropathy so will monitor that closely and we have DC abx that could likely be the source. Hyperglycemia from steroids continue and she has severe insulin resistance. Patient denies pain and no BM for several days and cath was DC so will work towards increasing strength and be able to DC home with . Subjective/Events-last exam Creatinine 1.73 BP 135/72 Still on telemetry Seems less short of breath than admission Bowels are moving well Denies any other significant pain issues or concerns Progressing nicely Checked meds and labs Conferred with RN Reviewed therapy notes Review of Systems Pulmonary: Dyspnea Objective Exam Vital Signs Vital Signs Date Time Temp Pulse Resp B/P (MAP) Pulse Ox O2 Delivery O2 Flow Rate FiO2 01/16/19 17:10 78 22 135/74 (94) 97 Nasal Cannula 2.00 01/16/19 15:26 37.0 Capillary Refill : Less Than 3 Seconds General Appearance: No Apparent Distress, WD/WN, Anxious, Chronically ill HEENT: PERRL/EOMI, Normal ENT Inspection, Pharynx Normal, Moist Mucous Membranes Neck: Full Range of Motion, Normal Inspection, Non Tender, Supple Respiratory: Chest Non Tender, No Accessory Muscle Use, No Respiratory Distress, Crackles, Decreased Breath Sounds, Wheezing Cardiovascular: No Edema, No Gallop, No JVD, No Murmur, Irregularly Irregular Gastrointestinal: Normal Bowel Sounds, No Organomegaly, No Pulsatile Mass, Non Tender, Soft Back: Normal Inspection, No CVA Tenderness, No Vertebral Tenderness Extremity: Normal Capillary Refill, Normal Inspection, Normal Range of Motion, Non Tender, No Calf Tenderness, No Pedal Edema Neurologic/Psychiatric: Alert, Oriented x3, No Motor/Sensory Deficits (generalized all extremites), Normal Mood/Affect Skin: Normal Color, Warm/Dry Lymphatic: No Adenopathy Results/Procedures Lab Laboratory Tests 01/16/19 04:50 Patient resulted labs reviewed. FIM Transfers Therapy Code Descriptions/Definitions Functional [place] Measure: 0=Not Assessed/NA 4=Minimal Assistance 1=Total Assistance 5=Supervision or Setup 2=Maximal Assistance 6=Modified [place] 3=Moderate Assistance 7=Complete IndependenceSCALE: Activities may be completed with or without assistive devices. 8-Ddwgnemkhf-jjizzeg completes the activity by him/herself with no assistance from a helper. 5-Set-up or Clean-up Assistance-helper sets up or cleans up; patient completes activity. [place] assists only prior to or following the activity. 4-Supervision or Touching Assistance-helper provides verbal cues and/or touching/steadying and/or contact guard assistance as patient completes activity. Assistance may be provided throughout the activity or intermittently. 3-Partial/Moderate Assistance-helper does LESS THAN HALF the effort. [place] lifts, holds or supports trunk or limbs, but provides less than half the effort. 2-Substantial/Maximal Assistance-helper does MORE THAN HALF the effort. [place] lifts or holds trunk or limbs and provides more than half the effort. 7-Syycvouct-dosvhy does ALL the effort. Patient does none of the effort to complete the activity. Or, the assistance of 2 or more helpers is required for the patient to complete the activity. If activity was not attempted, code reason: 7-Patient Refused. 9-Not Applicable-not attempted and the patient did not perform the activity before the current illness, exacerbation or injury. 10-Not Attempted due to Environmental Limitations-(lack of equipment, weather restraints, etc.). 88-Not Attempted due to Medical Conditions or Safety Concerns. Roll Left to Right (QC): 6 Sit to Lying (QC): 6 Sit to Stand (QC): 5 Chair/Sij-st-Zudcn Xfer(QC): 4 (SBA. pt stays hunched over to stand pivot transfer.) Car Transfer (QC): 4 (SBA) Gait Training Does the Patient Walk?: Yes Gait (FIM): 5 Distance (FIM): 3=150 ft Distance: 150' x2 Walk 10 feet (QC): 5 Walk 50 ft with 2 Turns(QC): 5 Walk 150 ft (QC): 5 Walking 10ft/uneven surface-QC: 4 (CGA) Gait Persons Needed: 1 Gait Assistive Device: FWW Wheelchair Training Does the Pt Use a Wheelchair?: No Stair Training #of Steps: 1 1 Step (curb) (QC): 3 (Mari. pt accepts less weight throught the R LE to go up step ) 4 Steps (QC): 88 12 Steps (QC): 88 Balance Picking up an Object (QC): 3 (modA. Pt was unstable but able to get to pen and back up with 1 hand on FWW) ADL-Treatment Eating (QC): 6 Oral Hygiene (QC): 5 (SBA at sink with FWW) Shower/Bathe Self (QC): 3 (Pt completes showering on shower chair. SBA in stance for andreina/ bottom washing. Pt able to reach all areas with exception of bilateral feet, requires assist with washing feet.) Upper Body Dressing (QC): 5 (s/u) Lower Body Dressing (QC): 5 (s/u, completes threading on shower chair; requires SBA in stance for pull up) Toileting Hygiene (QC): 5 (SBA in stance.) Toilet Transfer (QC): 5 (SBA) Assessment/Plan Assessment and Plan Assess & Plan/Chief Complaint Assessment: Respiratory failure now improved off biPAP and Vapotherm Severe COPD Former smoker AF OAC ARF on CRI HTN Plan: IRF protocols with 03/10 for expected slow recovery due to severe weakness Monitor oxygen and creatinine O2 Nebs Much improved Dr Luna consultation due to severity of her COPD Improved dramatically (1) COPD (chronic obstructive pulmonary disease) (2) Debility (3) Hyperkalemia Status: Acute (4) Hyperphosphatemia Status: Acute (5) Respiratory failure Status: Acute (6) BiPAP (biphasic positive airway pressure) dependence (7) DVT prophylaxis Status: Acute (8) Elevated AST (SGOT) Status: Acute (9) Acute renal insufficiency Status: Acute (10) Diabetes mellitus, type 2 Status: Chronic (11) CKD (chronic kidney disease) Status: Chronic (12) A-fib (13) GERD (gastroesophageal reflux disease) Status: Chronic (14) HTN (hypertension) Status: Chronic (15) HLD (hyperlipidemia) Status: Chronic ZACK ESCOBEDO DO Jan 16, 2019 09:02 POS
--- NOTE | 2019-01-16 09:55 | Physical Therapy Daily Note ---
PT Daily Note-Current Subjective Pt in chair pre-tx. Pt agrees to PT this morning. Pt reports she is having no pain this morning. pts O2 pre-tx was 98% and HR was 79bpm. Appearance Pt in chair post-tx. Pt with tray table, call light, room phone in reach and all needs met at this time. Pt's O2 post-tx was 97% and HR was 98bpm. Mental Status Patient Orientation: Person, Place, Time, Situation Attachments: Oxygen (2L from High flow nasal canula) Transfers SCALE: Activities may be completed with or without assistive devices. 6-Uqwcdyveqr-czskwhe completes the activity by him/herself with no assistance from a helper. 5-Set-up or Clean-up Assistance-helper sets up or cleans up; patient completes activity. [place] assists only prior to or following the activity. 4-Supervision or Touching Assistance-helper provides verbal cues and/or touching/steadying and/or contact guard assistance as patient completes activity. Assistance may be provided throughout the activity or intermittently. 3-Partial/Moderate Assistance-helper does LESS THAN HALF the effort. [place] lifts, holds or supports trunk or limbs, but provides less than half the effort. 2-Substantial/Maximal Assistance-helper does MORE THAN HALF the effort. [place] lifts or holds trunk or limbs and provides more than half the effort. 0-Ysbyrpokm-nzggmd does ALL the effort. Patient does none of the effort to complete the activity. Or, the assistance of 2 or more helpers is required for the patient to complete the activity. If activity was not attempted, code reason: 7-Patient Refused. 9-Not Applicable-not attempted and the patient did not perform the activity b efore the current illness, exacerbation or injury. 10-Not Attempted due to Environmental Limitations-(lack of equipment, weather restraints, etc.). 88-Not Attempted due to Medical Conditions or Safety Concerns. Sit to Stand (QC): 4 (SBA) Pt has decreased eccentric LE control as she sits. Weight Bearing Right Lower Extremity: Right Weight Bearing/Tolerated Left Lower Extremity: Left Weight Bearing/Tolerated Gait Training Does the Patient Walk?: Yes Distance: 200' X3 and 150' Walk 10 feet (QC): 6 Walk 50 ft with 2 Turns(QC): 4 (SBA) Walk 150 ft (QC): 4 (SBA) Gait Assistive Device: FWW verbal cues to relax hands on FWW and rely on walker more for just balance which pt was able to do. Very slow ambulation but steady. Wheelchair Training Does the Pt Use a Wheelchair?: No Exercises Seated Therapy Exercises: Ankle pumps, Hip flexion Seated Reps: 20 Standing: Hip Abduction, Heel/toe raises Standing Reps: 20 (2set 10 reps) Treatments Pt performed skilled gait training, functional transfer training, LE exercises, and education this date. Assessment Current Status: Good Progress Pt victoriano increased ambulation distance from previous session with longer distances before needing rest breaks. Pt's O2 sats remained above 94% through this session. Pt continues to complain of dizziness with ambulation but is able to continue walking with about a 10 second stand break. PT Short Term Goals Short Term Goals Time Frame: Jan 20, 2019 Gait Distance Comment: 150' Gait Assistive Device: FWW (SBA) PT Rug Dyer Goals Rug Dyer Goals PT Rug Dyer Goals Time Frame: Feb 03, 2019 Sit to Lying (QC): 6 Lying-Sitting on Side/Bed(QC): 6 Sit to Stand (QC): 6 Roll Left to Right (QC): 6 Chair/Wrq-dc-Xurog Xfer(QC): 6 Car Transfer (QC): 6 Does the Patient Walk: Yes Distance: 300' Walk 10 feet (QC): 6 Walk 10ft-Uneven Surface(QC): 4 (SBA) Walk 50ft with 2 Turns (QC): 6 Walk 150 ft (QC): 6 Gait Assistive Device: FWW Does the Pt use WC or Scooter?: No # of Steps: 4 1 Step (curb) (QC): 4 (SBA) 4 Steps (QC): 4 (SBA) Picking up an Object (QC): 4 (SBA) PT Plan Problem List Problem List: Activity Tolerance, Functional Strength, Safety, Balance, Gait, Transfer, Bed Mobility Treatment/Plan Treatment Plan: Continue Plan of Care Treatment Plan: Bed Mobility, Education, Functional Activity Diane, Functional Strength, Group Therapy, Gait, Safety, Therapeutic Exercise, Transfers Treatment Duration: Feb 03, 2019 Frequency: At least 5 of 7 days/Wk (IRF) Estimated Hrs Per Day: 1.5 hours per day Patient and/or Family Agrees t: Yes Safety Risks/Education Patient Education: Gait Training, Transfer Techniques, Correct Positioning, Safety Issues Teaching Recipient: Patient Teaching Methods: Demonstration, Discussion Response to Teaching: Verbalize Understanding, Return Demonstration, Reinforcement Needed Time/GCodes Time In: 900 Time Out: 1000 Total Billed Treatment Time: 60 Total Billed Treatment 1 visit EX 15' GT 45' FLORINDA SMART PT Jan 16, 2019 09:55
--- NOTE | 2019-01-16 10:09 | Progress Note ---
STANISLAVSHREYA CORNEJO [facility] 01/16/19 1009: Progress Note CC: Shortness of Breath * Pt reports walking up and down the underwood which she states was very difficult due to SOB and weakness * She states she had to stop at the end of the underwood and rest before heading back to her room * She states her wobble in her knees when walking has gotten better, but it is s till there some * She reports feeling dizzy as well after her walk the other day * She was able to have a bowel movement this weekend which was the first one in a while * She has been having paroxysmal A-fib recently * She has a cough with deep breathing and a very slight wheeze with deep inspiration * She is currently wearing 2L O2 nasal cannula all day and during PT * She wear a CPAP at night which she had done at home prior Discharge likely Wednesday (01/23) or Wednesday (01/24) SHANAE ESCOBEDO DO 01/16/192030: Supervisory-Addendum Brief Verification & Attestation Participated in pt care: history, MDM, physical Personally performed: exam, history, MDM, supervision of care Care discussed with: Medical Student Procedures: n/a Results interpretation: Verified all documentation Verification and Attestation of Medical Student E/M Service A medical student performed and documented this service in my presence. I reviewed and verified all information documented by the medical student and made modifications to such information, when appropriate. I personally performed the physical exam and medical decision making. Shanae Escobedo, Jan 16, 2019,20:31 STANISLAVELHAMSHREYA [facility] Jan 16, 2019 10:09 SHANAE GRACIA DO Jan 16, 2019 20:31 POS
--- NOTE | 2019-01-16 11:31 | Occupational Ther Daily Note ---
OT Current Status-Daily Note Subjective Pain not reported. Pt. reports being fatigued. Appearance Pt. up in chair. Agrees to work with OT. Mental Status/Objective Patient Orientation: Person, Place, Time, Situation Attachments: Oxygen ADL-Treatment Therapy Code Descriptions/Definitions Functional [place] Measure: 0=Not Assessed/NA 4=Minimal Assistance 1=Total Assistance 5=Supervision or Setup 2=Maximal Assistance 6=Modified [place] 3=Moderate Assistance 7=Complete IndependenceSCALE: Activities may be completed with or without assistive devices. 1-Gcjxdhtpxu-lcmlnhy completes the activity by him/herself with no assistance from a helper. 5-Set-up or Clean-up Assistance-helper sets up or cleans up; patient completes activity. [place] assists only prior to or following the activity. 4-Supervision or Touching Assistance-helper provides verbal cues and/or touching/steadying and/or contact guard assistance as patient completes activity. Assistance may be provided throughout the activity or intermittently. 3-Partial/Moderate Assistance-helper does LESS THAN HALF the effort. [place] lifts, holds or supports trunk or limbs, but provides less than half the effort. 2-Substantial/Maximal Assistance-helper does MORE THAN HALF the effort. [place] lifts or holds trunk or limbs and provides more than half the effort. 4-Scrvanigh-yihaot does ALL the effort. Patient does none of the effort to complete the activity. Or, the assistance of 2 or more helpers is required for the patient to complete the activity. If activity was not attempted, code reason: 7-Patient Refused. 9-Not Applicable-not attempted and the patient did not perform the activity before the current illness, exacerbation or injury. 10-Not Attempted due to Environmental Limitations-(lack of equipment, weather restraints, etc.). 88-Not Attempted due to Medical Conditions or Safety Concerns. Oral Hygiene (QC): 5 (Set up seated at sink to brush teeth and hair.) Shower/Bathe Self (QC): 4 (SBA with use of LH sponge.) Upper Body Dressing (QC): 5 Lower Body Dressing (QC): 4 (Pt. educated on AE for LE dressing. However, did not need it during tasks.) Toileting Hygiene (QC): 4 (SBA) Toilet Transfer (QC): 4 Other Treatment Pt. completed shower and dressing task in bathroom setting. Pt. educated on energy conservation techniques and taking rest breaks. After ADLs, pt. ambulated to dining area with walker and oxygen, (2 L). Pt. requested rest break. O2 sats taken at this time and are 84%. Pt. encouraged to take deep breathes in through nose, out through mouth. Sats raised to 97% very quickly. Pt. ambulated the rest of the way to gym. Tolerated 5 minutes on arm bike with one rest break. Tolerated mod resistance and slow pace for increased overall endurance with functional tasks. After this, pt. ambulated back to room with SBA with walker, with slow pace. All needs met back in room. Education OT Patient Education: Correct positioning, Energy conservation, Exercise program, Modified ADL techniques, Progress toward Goal/Update tx plan, Purpose of tx/functional activities, Reviewed precautions, Rehab process, Transfer techniques, Use of adapted equipment Teaching Recipient: Patient Teaching Methods: Demonstration, Discussion Response to Teaching: Verbalize Understanding, Return Demonstration OT Short Term Goals Short Term Goals Grooming(FIM): 6 Upper Body Dressing(FIM): 4 (met) Lower Body Dressing(FIM): 3 (met) Additional Short Term Goals: 1-Demonstrate ADL Tasks, 2-Verbalize U nderstanding, 3-ImproveStrength/Diane 1=Demonstrate adherence to instructed precautions during ADL tasks. 2=Patient will verbalize/demonstrate understanding of assistive devices/modifications for ADL. 3=Patient will improve strength/tolerance for activity to enable patient to perform ADL's. OT Aircraft Pilot Goals Long-Term Goals Eating (QC): 6 (met) Oral Hygiene (QC): 6 Shower/Bathe Self (QC): 6 Upper Body Dressing (QC): 6 Lower Body Dressing (QC): 6 On/Off Footwear (QC): 6 Toileting Hygiene (QC): 6 Toilet/Commode Transfer (QC): 6 Additional Goals: 1-Demonstrate ADL Tasks, 2-Verbalize Understanding, 3- ImproveStrength/Diane 1=Demonstrate adherence to instructed precautions during ADL tasks. 2=Patient will verbalize/demonstrate understanding of assistive devices/modifications for ADL. 3=Patient will improve strength/tolerance for activity to enable patient to perform ADL's. OT Education/Plan Problem List/Assessment Assessment: Decreased Activ Tolerance, Dependent Transfers, Impaired I ADL's, Impaired Self-Care Skills Discharge Recommendations Plan/Recommendations: Continue POC Therapy Discharge Recommendati: Post Acute OT Treatment Plan/Plan of Care Treatment,Training & Education: Yes Patient would benefit from OT for education, treatment and training to promote independence in ADL's, mobility, safety and/or upper extremity function for ADL's. Plan of Care: ADL Retraining, Caregiver Training, Functional Mobility, Group Exercise/Act as Ind, UE Funct Exercise/Act Treatment Duration: Jan 27, 2019 Frequency: At least 5 of 7 days/Wk (IRF) Estimated Hrs Per Day: 1.5 hours per day Agreement: Yes Rehab Potential: Good Time/GCodes Start Time: 10:00 Stop Time: 11:30 Total Time Billed (hr/min): 90 Billed Treatment Time 1, ADL x 60minutes, Ex x 15minutes, FA x 15minutes DOV BADILLO OT Jan 16, 2019 11:31
[2019-01-16] MEDS: HYDROcodone/APAP 10 MG/325 MG (LORTAB) TAB PO PRN (11:47)
--- NOTE | 2019-01-16 12:52 | Therapy Group Daily Note ---
Therapy Daily Group Note Patient Education Topic Other List Below (ambulation, ARU description/expectations) Exercises LE Seated Exercise, UE Exercise Session Ratio (pt:therapist): 5:1 Goal of Session: Education on ARU Expectations, UE/LE Strengthing, Other (list) (ambulation) Goal Met for this Session: Yes Pt Benefit of Group: Contributions to Others, Increased Functional Safety, Increased Functional Strength, Improved Cognition, Recognition of Peers, Socialization Other/Notes LATE ENTRY FOR 01/13/2019 Pt ambulated using FWW to [facility] for OT/PT group. Group consisted of introductions (name, place living, telling a joke), socialization, UE/LE seated exercises, education of ARU description/expectations and walking safely utilizing AE. Pt introduced self appropriately and actively listened to peers. Pt demonstrated understanding of educational topics by asking questions or giving personal observations and stories. Pt was able to tolerate UE/LE seated exercises and completed well. After therapy, pt lying in bed with call light/phone in reach. All needs met in room. Start Time: 13:00 Stop Time: 14:15 Total Billed Treatment Time: 75 Total Billed Treatment 1-GRP BONG OZUNA Jan 16, 2019 12:52 POS
--- NOTE | 2019-01-16 13:13 | NUR ---
Met with patient to complete initial assessment. Patient lives at home with her spouse. Patient reported they live in a multi-level home, but the upper level is only used for storage. Patient reported 4 entry steps to home with no railing. Prior to hospitalization, patient reported she was independent with ADLs and functional mobility; she denied use of any adaptive equipment except for a sock aid she purchased. Patient reported using oxygen 2L PRN and CPAP at home. Patient's preferred pharmacy is [facility] in [place]. Patient confirmed her PCP as Dr. Cabral and insurance as Medicare with [employer] insurance secondary. Emergency contacts are her spouse, Sarwat Rdz (phone: [phone]) and her son, Saroj Luna (phone: [phone] or [phone]). Purpose of the weekly team conference was discussed and patient verbalized understanding. Patient's discharge goal is to return home with her spouse.
[2019-01-16 14:03] VITALS: BP 123/67
--- NOTE | 2019-01-16 14:07 | Physical Therapy Daily Note ---
PT Daily Note-Current Subjective pt in chair pre tx. Pt agrees to PT this afternoon. Pt denies any pain at this time. Appearance Pt in chair post-tx. Pt with call light, room phone, and tray table in reach with all needs met at this time. Mental Status Patient Orientation: Person, Place, Time, Situation Attachments: Oxygen (2L through high flow nasal canula), IV Transfers SCALE: Activities may be completed with or without assistive devices. 0-Stqupunaqc-uxpfepy completes the activity by him/herself with no assistance from a helper. 5-Set-up or Clean-up Assistance-helper sets up or cleans up; patient completes activity. [place] assists only prior to or following the activity. 4-Supervision or Touching Assistance-helper provides verbal cues and/or touching/steadying and/or contact guard assistance as patient completes activity. Assistance may be provided throughout the activity or intermittently. 3-Partial/Moderate Assistance-helper does LESS THAN HALF the effort. [place] lifts, holds or supports trunk or limbs, but provides less than half the effort. 2-Substantial/Maximal Assistance-helper does MORE THAN HALF the effort. [place] lifts or holds trunk or limbs and provides more than half the effort. 9-Oalamdcnr-uktcfg does ALL the effort. Patient does none of the effort to complete the activity. Or, the assistance of 2 or more helpers is required for the patient to complete the activity. If activity was not attempted, code reason: 7-Patient Refused. 9-Not Applicable-not attempted and the patient did not perform the activity before the current illness, exacerbation or injury. 10-Not Attempted due to Environmental Limitations-(lack of equipment, weather restraints, etc.). 88-Not Attempted due to Medical Conditions or Safety Concerns. Sit to Stand (QC): 4 (SBA) Weight Bearing Right Lower Extremity: Right Weight Bearing/Tolerated Left Lower Extremity: Left Weight Bearing/Tolerated Gait Training Distance: 100'x2 Walk 10 feet (QC): 6 Walk 50 ft with 2 Turns(QC): 4 (SBA) Gait Assistive Device: FWW Pt continues to ambulate with a slow but steady pace. Pt requires multiple short standing breaks this session during ambulation for subjective complaint of "dizziness" Wheelchair Training Does the Pt Use a Wheelchair?: No Exercises Standing: Heel/toe raises (2sets 15 reps), Marching (2 sets 20reps), Mini squats (2sets 10 reps) Treatments Pt performed LE strengthening exercises, skilled ambulation training, transfer training, and education this date. Assessment Current Status: Good Progress Pt was not able to ambulate as long this session as she did last session without standing rest breaks. Pt was able to stand for 2 rounds of exercises this date. Pt's O2 sats stayed above 95% throughout this session. and HR roddy to 112bpm. PT Short Term Goals Short Term Goals Time Frame: Jan 20, 2019 Gait Distance Comment: 150' Gait Assistive Device: FWW (SBA) PT Half-Way Goals Debubblizer Goals PT Half-Way Goals Time Frame: Feb 03, 2019 Sit to Lying (QC): 6 Lying-Sitting on Side/Bed(QC): 6 Sit to Stand (QC): 6 Roll Left to Right (QC): 6 Chair/Qik-kw-Ldnyz Xfer(QC): 6 Car Transfer (QC): 6 Does the Patient Walk: Yes Distance: 300' Walk 10 feet (QC): 6 Walk 10ft-Uneven Surface(QC): 4 (SBA) Walk 50ft with 2 Turns (QC): 6 Walk 150 ft (QC): 6 Gait Assistive Device: FWW Does the Pt use WC or Scooter?: No # of Steps: 4 1 Step (curb) (QC): 4 (SBA) 4 Steps (QC): 4 (SBA) Picking up an Object (QC): 4 (SBA) PT Plan Problem List Problem List: Activity Tolerance, Functional Strength, Safety, Balance, Gait, Transfer, Bed Mobility Treatment/Plan Treatment Plan: Continue Plan of Care Treatment Plan: Bed Mobility, Education, Functional Activity Diane, Functional Strength, Group Therapy, Gait, Safety, Therapeutic Exercise, Transfers Treatment Duration: Feb 03, 2019 Frequency: At least 5 of 7 days/Wk (IRF) Estimated Hrs Per Day: 1.5 hours per day Patient and/or Family Agrees t: Yes Safety Risks/Education Patient Education: Gait Training, Transfer Techniques, Steps, Correct Positioning, Safety Issues Teaching Recipient: Patient Teaching Methods: Demonstration, Discussion Response to Teaching: Verbalize Understanding, Return Demonstration, Reinforcement Needed Time/GCodes Time In: 1330 Time Out: 1404 Total Billed Treatment Time: 34 Total Billed Treatment 1 visit FA 14' GT 20' BONG ARNOLD PT Jan 16, 2019 14:07 POS
--- NOTE | 2019-01-16 16:27 | Pulmonary Consultation ---
History of Present Illness History of Present Illness Date of Consultation 01/16/19 16:27 Date of Admission Allergies and Home Medications Allergies Coded Allergies: morphine (Verified Adverse Reaction, Severe, hallucination, 07/12/18) Home Medications Amlodipine Besylate 10 Mg Tablet, 10 MG PO DAILY, (Reported) Aspirin 81 Mg Tablet.dr, 81 MG PO DAILY, (Reported) Atorvastatin Calcium 40 Mg Tablet, 40 MG PO HS, (Reported) Cinnamon Bark 500 Mg Capsule, 500 MG PO BID, (Reported) Clonidine HCl 0.1 Mg Tablet, 0.1 MG PO BID, (Reported) Cyclobenzaprine HCl 10 Mg Tablet, 20 MG PO BID PRN for MUSCLE SPASMS, (Reported) Dronedarone HCl 400 Mg Tablet, 400 MG PO BID, (Reported) Dulaglutide 0.75 Mg/0.5 Ml Pen.injctr, 0.75 MG SC Mandujano, (Reported) Fenofibrate,Micronized 134 Mg Capsule, 134 MG PO HS, (Reported) Furosemide 40 Mg Tablet, 40 MG PO DAILY, (Reported) Gabapentin 600 Mg Tablet, 600 MG PO TID, (Reported) Hydralazine HCl 10 Mg Tablet, 10 MG PO TID, (Reported) Hydrocodone/Acetaminophen 1 Each Tablet, 1 TAB PO TID PRN for PAIN-MODERATE, (Reported) Insulin Aspart 300 Units/3 Ml Solution, SQ TIDAC, (Reported) USES 1 UNIT FOR EVERY 2 POINTS OVER 100 BS Insulin Detemir 100 Unit/1 Ml Insuln.pen, 80 UNITS SC HS, (Reported) Isosorbide Mononitrate 60 Mg Tab, 60 MG PO DAILY, (Reported) Lisinopril 20 Mg Tablet, 20 MG PO BID, (Reported) Magnesium Oxide 400 Mg Tablet, 400 MG PO HS, (Reported) Metformin HCl 500 Mg Tab.er.24h, 500 MG PO BID, (Reported) Multivitamin-Min/Iron/FA/Vit K 1 Each Tablet, 1 TAB PO DAILY, (Reported) Pala-3/Dha/Epa/Fish Oil 1 Each Capsule, 1,000 MG PO HS, (Reported) Pantoprazole Sodium 40 Mg Tablet.dr, 40 MG PO DAILY, (Reported) Potassium Gluconate 99 Mg Tablet, 99 MG PO DAILY, (Reported) Primidone 50 Mg Tablet, 50 MG PO HS, (Reported) Rivaroxaban 20 Mg Tablet, 20 MG PO DAILY, (Reported) Sennosides/Docusate Sodium 1 Each Tablet, 1 TAB PO DAILY PRN for CONSTIPATION- 6TH LINE, (Reported) Past Mhcfpur-Fsylft-Fitalt Hx Past Med/Social Hx: Reviewed Nursing Past Med/Soc Hx, Reviewed and Corrections made Patient Social History Alcohol Use: Denies Use Recreational Drug Use: No Smoking Status: Former Smoker Type Used: Cigarettes Former Smoker, Quit: Mar 24, 1997 2nd Hand Smoke Exposure: No Recent Foreign Travel: No Contact w/Someone Who Travel: No Recent Infectious Disease Expo: No Recent Hopitalizations: Yes Immunizations Up To Date Tetanus Booster (TDap): Unknown PED Vaccines UTD: Yes Date of Pneumonia Vaccine: Mar 05, 2013 Date of Influenza Vaccine: Jan 12, 2019 Seasonal Allergies Seasonal Allergies: No Past Medical History Surgeries: Yes (neck and back surgeries) Coronary Stent, Gallbladder, Hysterectomy, Orthopedic Respiratory: Yes Pneumonia, Pulmonary Embolism, Sleep Apnea, COPD Currently Using CPAP: Yes Cardiac: Yes (stents) Atrial Fibrillation, Coronary Artery Disease, High Cholesterol, Hypertension Neurological: No : No Reproductive Disorders: No Genitourinary: No Bladder Infection, Renal Failure Gastrointestinal: Yes Gastroesophageal Reflux, Chronic Constipation, Pancreatitis Musculoskeletal: Yes (CHRONIC HIP PAIN BILATERALLY, FX NECK) Arthritis Endocrine: Yes Diabetes, Insulin dep, Diabetes, Non-Insulin dep Are Your Blood Sugars Over 250: Yes (SOMETIMES) HEENT: No Loss of Vision: Denies Hearing Impairment: Denies Cancer: No Psychosocial: No Anxiety Integumentary: No Blood Disorders: No Family Medical History Diabetes, Hypertension Sepsis Event Evaluation Height, Weight, BMI Height: 5'4.00" Weight: 219lbs. 1.0oz. 99.955364hw; 40.33 BMI Method:Stated Exam Exam Vital Signs Date Time Temp Pulse Resp B/P (MAP) Pulse Ox O2 Delivery O2 Flow Rate FiO2 01/16/19 15:26 37.0 01/16/19 14:20 95 Nasal Cannula 2.00 01/16/19 14:03 76 21 123/67 (85) 98 Nasal Cannula 01/16/19 12:06 83 01/16/19 10:04 97 Nasal Cannula 2.00 01/16/19 08:32 Nasal Cannula 2.00 01/16/19 08:03 85 22 135/69 (91) 97 Nasal Cannula 2.00 01/16/19 07:00 93 01/16/19 05:30 36.1 83 20 153/78 (103) 97 NIV Bilevel 2.00 01/16/19 02:03 81 13 99 30.00 01/16/19 01:02 90 01/15/19 22:59 95 30 96 30.00 01/15/19 21:27 93 Nasal Cannula 2.00 01/15/19 20:57 93 Nasal Cannula 2.00 01/15/19 20:48 103 20 143/78 (99) 93 High Flow N/C 2.00 01/15/19 19:00 91 01/15/19 18:00 36.8 90 16 116/70 (85) 94 Room Air I & O 01/16/19 07:00 Intake Total 900 ml Output Total 3 ml Balance 897 ml Height & Weight Height: 5'4.00" Weight: 219lbs. 1.0oz. 99.812428qa; 40.33 BMI Method:Stated General Appearance: No Apparent Distress, WD/WN, Anxious, Chronically ill HEENT: PERRL/EOMI, Normal ENT Inspection, Pharynx Normal, Moist Mucous Membranes Neck: Full Range of Motion, Normal Inspection, Non Tender, Supple Respiratory: Chest Non Tender, No Accessory Muscle Use, No Respiratory Distress, Crackles, Decreased Breath Sounds, Wheezing Cardiovascular: No Edema, No Gallop, No JVD, No Murmur, Irregularly Irregular Extremity: Normal Capillary Refill, Normal Inspection, Normal Range of Motion, Non Tender, No Calf Tenderness, No Pedal Edema Neurologic/Psychiatric: Alert, Oriented x3, No Motor/Sensory Deficits (generalized all extremites), Normal Mood/Affect Skin: Normal Color, Warm/Dry Lymphatic: No Adenopathy Results Lab Laboratory Tests 01/16/19 04:50 ELIZABETH FRANCISCO DO Jan 16, 2019 16:27 POS
[2019-01-16] MEDS: RIVAROXABAN 15 MG TABLET (XARELTO) PO SCH (17:08)
[2019-01-16 17:10] VITALS: BP 135/74
--- NOTE | 2019-01-16 17:59 | Diagnostic Imaging Report ---
INDICATION: Shortness of breath. Frontal chest obtained at 05:01 p.m. and compared to 01/13/2019. There is cardiomegaly and central vascular congestion with mild interstitial edema. There is no consolidation, pneumothorax, or pleural fluid. IMPRESSION: Cardiomegaly and central vascular congestion with borderline interstitial edema. No consolidation or pleural fluid. Minimal to no change from 01/13/2019. Dictated by: Dictated on workstation # [id number]
[2019-01-16] MEDS ORDERED: PATIENT MAY USE OWN MED,SINGLE MED PO SCH (18:30)
[2019-01-16] MEDS: TRULICITY 0.75 MG/0.5 ML SC SCH (19:06)
[2019-01-16 21:05] VITALS: BP 148/69
[2019-01-16] MEDS: FENOFIBRATE 134 MG (LOFIBRA) CAPSULE PO SCH (21:06)
[2019-01-16] MEDS: MAGNESIUM OXIDE (MAG-OX)400 MG TAB PO SCH (21:07)
[2019-01-16] MEDS: PRIMIDONE 50 MG TAB (MYSOLINE) PO SCH (21:08)
[2019-01-17] MEDS: RT-ALBUTEROL/IPRATROPIUM 3 ML (DUONEB) VIAL INH SCH ×4 (02:19→19:32)
[2019-01-17 05:43] VITALS: BP 116/74
[2019-01-17] MEDS: inSUlin ASPART (NovoLOG) 1 UNIT/0.01 ML (CHARGE PER UNIT) SC SCH ×4 (05:51→20:59)
[2019-01-17] MEDS: predniSONE 20 MG TAB PO SCH (06:12)
--- NOTE | 2019-01-17 08:06 | Cardiology Progress Note ---
Subjective Date Seen by Provider: Jan 17, 2019 Time Seen by Provider: 08:04 Subjective/Events-last exam Patient up in bed, no new complaints. Denies any chest pain or dyspnea. Objective-Cardiology Exam Last Set of Vital Signs Vital Signs 01/17/19 01/17/19 01/17/19 05:43 06:18 07:00 Temp 36.6 Pulse 87 Resp 18 B/P (MAP) 116/74 (88) Pulse Ox 97 O2 Delivery Nasal Cannula O2 Flow Rate 2.00 Capillary Refill : Less Than 3 Seconds I&O Intake and Output 01/16/19 23:59 Intake Total 1280 ml Balance 1280 ml Intake Oral 1280 ml # Voids 8 # Bowel Movements 1 General: Alert, Oriented X3, Cooperative HEENT: Atraumatic, PERRLA Neck: Supple, No JVD, No Thyromegaly Lungs: Clear to Auscultation, Normal Air Movement Heart: Normal S1, Normal S2, No Murmurs, Other (Irregular) Abdomen: Normal Bowel Sounds, Soft, No Tenderness, No Hepatosplenomegaly, No Masses Extremities: No Clubbing, No Cyanosis, Normal Pulses, No Tenderness/Swelling, Other (Mild edema) Skin: No Rashes, No Breakdown, No Significant Lesion Neuro: Normal Gait, Normal Speech, Strength at 5/5 X4 Ext, Normal Tone, Sensati on Intact Psych/Mental Status: Mental Status NL, Mood NL A/P-Cardiology Admission Diagnosis Paroxysmal atrial fibrillation Coronary artery disease Hypertension Hyperlipidemia Assessment/Plan Status post respiratory failure, better at this time, has history of severe COPD with multiple exacerbation. Acute renal failure, renal function improving, currently Lasix and lisinopril are on hold Paroxysmal atrial fibrillation, back in atrial fibrillation, had history of cardioversion, started on Cardizem and tolerating medication well, continue on Multaq and monitor telemetry Sinus node dysfunction with history of severe bradycardia, monitor heart rate closely. Mild elevation in troponin level, no active chest pain, no acute EKG changes, probably due to hypoxemia and small vessel disease. Medical therapy is recom mended continue to monitor Type II myocardial infarction secondary to hypoxemia, last cardiac catheterization as described below Coronary artery disease, history of stent placement 2 to the LAD. In August 2013 cardiac cath revealed patent stents to LAD, known to have Taxus 320 mm stent in the mid LAD, proximal to that there was a stent placed in 2011 which is 312 mm Ion stent. Both are patent with 40-50 percent in-stent restenosis. Secondary branch had 90 percent stenosis at the ostium. Small artery, not amendable to intervention. Another cardiac catheterization February 2015 showing patent stents in the proximal LAD with 50 percent stenosis beyond the stent and 50 percent stenosis at the midportion of the LAD small vessel disease distally, moderate 40-50 percent stenosis in the right coronary artery with multiple segment of the proximal, mid and distal portion. Cardiac catheterization done March 05, 2017 revealed severe LAD stenosis beyond the previously known stent 3.0. Successful primary stenting using 3.08 mm ALPINE expanded to 3.5 with excellent results, balloon for in-stent restenosis also was made. Most recent cardiac catheterization done March 09, 2018 revealed patent stent with small vessel disease, no intervention required. continue to monitor [id number] score of 4, yearly risk of stroke without oral anticoagulation is 4 percent. Maintained on Xarelto 15mg. Hyperkalemia- continue to monitor. Hypertension, continue on current medication monitor blood pressure Renal arterial duplex done July 2015 revealed proximal right renal artery not jason luated, other segments of the left renal artery demonstrated no evidence of significant stenosis, continue to monitor Hyperlipidemia, continue to monitor lipids Obstructive sleep apnea, using C Pap, using oxygen as needed Nonobstructive carotid artery stenosis per carotid duplex done in February 2018, continue to monitor. Diabetes mellitus-managed by primary care physician Chronic pain, followed and managed by primary care physician Obesity, BMI is 37, discussed diet and exercise for weight loss. Clinical Quality Measures DVT/VTE Risk/Contraindication: Risk Factor Score Per Nursin RFS Level Per Nursing on Admit: 4+=Very High VIVIANA CAPPS Jan 17, 2019 08:06 POS
[2019-01-17] MEDS: LACTULOSE SYRUP 10GM/15ML (ENULOSE) 30ML UDC PO SCH ×2 (08:22→21:02)
[2019-01-17] MEDS: POLYETHYLENE GLYCOL 17 GM (MIRALAX) PACK PO SCH ×2 (08:22→21:02)
[2019-01-17] MEDS: SENNA W/DOCUSATE (SENOKOT S) TABLET PO SCH ×2 (08:24→21:00)
--- NOTE | 2019-01-17 08:31 | Cardiology Progress Note ---
Subjective Date Seen by Provider: Jan 17, 2019 Time Seen by Provider: 08:30 Subjective/Events-last exam Patient is laying down in bed, denied any chest pain, still in atrial fibri llation Review of Systems General: No Chills, No Night Sweats, No Fatigue, No Malaise, No Appetite, No Other HEENT: No Head Aches, No Visual Changes, No Eye Pain, No Ear Pain, No Dysphasia, No Sinus Congestion, No Post Nasal Drip, No Sore Throat, No Other Pulmonary: Dyspnea; No Cough, No Pleuritic Chest Pain, No Other Cardiovascular: No: Chest Pain, Palpitations, Orthopnea, Paroxysmal Noc. Dyspnea, Edema, Lt Headedness, Other Objective-Cardiology Exam Last Set of Vital Signs Vital Signs 01/17/19 01/17/19 01/17/19 05:43 06:18 07:00 Temp 36.6 Pulse 87 Resp 18 B/P (MAP) 116/74 (88) Pulse Ox 97 O2 Delivery Nasal Cannula O2 Flow Rate 2.00 Capillary Refill : Less Than 3 Seconds I&O Intake and Output 01/17/19 00:00 Intake Total 1280 ml Balance 1280 ml Intake Oral 1280 ml # Voids 8 # Bowel Movements 1 General: Alert, Oriented X3, Cooperative HEENT: Atraumatic, PERRLA Neck: Supple, No JVD, No Thyromegaly Lungs: Clear to Auscultation, Normal Air Movement Heart: Normal S1, Normal S2, No Murmurs, Other (Irregular) Abdomen: Normal Bowel Sounds, Soft, No Tenderness, No Hepatosplenomegaly, No Masses Extremities: No Clubbing, No Cyanosis, Normal Pulses, No Tenderness/Swelling, Other (Mild edema) Skin: No Rashes, No Breakdown, No Significant Lesion Neuro: Normal Gait, Normal Speech, Strength at 5/5 X4 Ext, Normal Tone, Sensation Intact Psych/Mental Status: Mental Status NL, Mood NL Results Lab Laboratory Tests Test 01/16/19 11:22 01/16/19 15:09 01/16/19 20:57 01/17/19 05:22 Range/Units Glucometer 388 H 154 H 241 H 61 L 70-110 MG/DL A/P-Cardiology Admission Diagnosis Paroxysmal atrial fibrillation Coronary artery disease Hypertension Hyperlipidemia Assessment/Plan Status post respiratory failure, better at this time, has history of severe COPD with multiple exacerbation. Acute renal failure, renal function improving, currently Lasix and lisinopril are on hold Paroxysmal atrial fibrillation, back in atrial fibrillation, had history of cardioversion, heart rate is controlled. Tolerating medication well. Continue to monitor Sinus node dysfunction with history of severe bradycardia, monitor heart rate closely. Mild elevation in troponin level, no active chest pain, no acute EKG changes, probably due to hypoxemia and small vessel disease. Medical therapy is recommended continue to monitor Type II myocardial infarction secondary to hypoxemia, last cardiac catheterization as described below Coronary artery disease, history of stent placement 2 to the LAD. In August 2013 cardiac cath revealed patent stents to LAD, known to have Taxus 320 mm stent in the mid LAD, proximal to that there was a stent placed in 2011 which is 312 mm Ion stent. Both are patent with 40-50 percent in-stent restenosis. Secondary branch had 90 percent stenosis at the ostium. Small artery, not amendable to intervention. Another cardiac catheterization February 2015 showing patent stents in the proximal LAD with 50 percent stenosis beyond the stent and 50 percent stenosis at the midportion of the LAD small vessel disease distally, moderate 40-50 percent stenosis in the right coronary artery with multiple segment of the proximal, mid and distal portion. Cardiac catheterization done March 05, 2017 revealed severe LAD stenosis beyond the previously known stent 3.0. Successful primary stenting using 3.08 mm ALPINE expanded to 3.5 with excellent results, balloon for in-stent restenosis also was made. Most recent cardiac catheterization done March 09, 2018 revealed patent stent with small vessel disease, no intervention required. continue to monitor [id number] score of 4, yearly risk of stroke without oral anticoagulation is 4 percent. Maintained on Xarelto 15mg. Hyperkalemia- continue to monitor. Hypertension, continue on current medication monitor blood pressure Renal arterial duplex done July 2015 revealed proximal right renal artery not evaluated, other segments of the left renal artery demonstrated no evidence of significant stenosis, continue to monitor Hyperlipidemia, continue to monitor lipids Obstructive sleep apnea, using C Pap, using oxygen as needed Nonobstructive carotid artery stenosis per carotid duplex done in February 2018, continue to monitor. Diabetes mellitus-managed by primary care physician Chronic pain, followed and managed by primary care physician Obesity, BMI is 37, discussed diet and exercise for weight loss. Clinical Quality Measures DVT/VTE Risk/Contraindication: Risk Factor Score Per Nursin RFS Level Per Nursing on Admit: 4+=Very High BOOM MILLER MD Jan 17, 2019 8:31 am POS
--- NOTE | 2019-01-17 08:32 | NUR ---
RD ASSESSMENT PMHx: afib; CAD; hypercholesterolemia; HTN; GERD; chronic constipation; pancreatitis; DM PT INTERACTION: (This for assessment on 01/16) Pt was awake and pleasant during rehab nutrition assessment. Pt states current appetite is good and has been for some time. Note pt is eating well at >75% meals x2d, per chart review. Pt states following a regular diet at home and regularly consuming fresh fruits and vegetables. Pt states some issues with nausea, which she says occur during PT. Pt states some constipation, but had a BM 01/16. Note pt currently on bowel regimen of senna, miralax, bisacodyl, colace. Pt states no recent wt changes. Note unable to determine recent wt hx, per chart review. ABNORMAL NUTRITION-RELATED LAB VALUES: K 5.4 (H); BUN 55 (H); cr 1.73 (H); glu 128 (H); AST 59 (H) Est. kcal needs: 4091-1381 kcal (15-20 kcal/kg) Est. Pro needs: 78-98 g Pro (0.8-1.0 g Pro/kg) PES STATEMENT: Given pt's intake and diet hx, no nutrition diagnosis at this time (NO-1.1) INTERVENTION: Continue with current diet order of CHO 60g/m 3snack diet. Will follow and reassess as needed. MONITOR/EVALUATE: PO Intake; Plan of Care; Hydration Status; Weight Status; Lab Values Germán Azar, MS, RD, LD Ext. 133
--- NOTE | 2019-01-17 08:36 | PM&R Progress Note ---
Subjective HPI/CC On Admission Date Seen by Provider: Jan 17, 2019 Time Seen by Provider: 08:30 CC: Debility Hospital course from med-surg: Pt was admitted to the ICU from the ER for shortness of breath and chest pain with deep breathing. She was started on IV steroids, antibiotics, and placed on Vapotherm with a BiPAP at night. She improved after a couple days in the ICU and was moved to med/surg after stopping Vapotherm and beginning 3L O2 nasal cannula while continuing BiPAP at night. She continued to improve reporting no trouble breathing while receiving DuoNeb treatments, nasal cannula O2, and BiPAP at night. She did feel extremely wobbly trying to stand and walking was very d ifficult requiring a lot of assistance from staff. She was recommended and evaluated for the Rehab unit to help with her recovery. She was discharged very willing and motivated to enter the Rehab unit. HPI: Patient is adjusting well to the IRF protocols. Very weak and tearful yesterday in PT when ambulating. Slow recovery predicted so I ordered 15/7 due to her severe weakness and difficulty coping. Patient's creatinine did increase to 2.75 and h/o CRI and DM nephropathy so will monitor that closely and we have DC abx that could likely be the source. Hyperglycemia from steroids continue and she has severe insulin resistance. Patient denies pain and no BM for several days and cath was DC so will work towards increasing strength and be able to DC home with . Subjective/Events-last exam Patient was only on oxygen at night she is requiring a 24/7 so may be able to wean Prednisone taper dose now at 30 mg starting tomorrow Will order incentive spirometer Had a really good night slept very well Bowels are moving well Denies any other significant pain issues or concerns Progressing nicely Checked meds and labs Conferred with RN Reviewed therapy notes Review of Systems General: Fatigue Pulmonary: Dyspnea Objective Exam Vital Signs Vital Signs Date Time Temp Pulse Resp B/P (MAP) Pulse Ox O2 Delivery O2 Flow Rate FiO2 01/17/19 09:00 Nasal Cannula 2.00 01/17/19 07:00 87 01/17/19 06:18 97 01/17/19 05:43 36.6 18 116/74 (88) Capillary Refill : Less Than 3 Seconds General Appearance: No Apparent Distress, WD/WN, Anxious, Chronically ill HEENT: PERRL/EOMI, Normal ENT Inspection, Pharynx Normal, Moist Mucous Membranes Neck: Full Range of Motion, Normal Inspection, Non Tender, Supple Respiratory: Chest Non Tender, Normal Breath Sounds, No Accessory Muscle Use, No Respiratory Distress, Crackles Cardiovascular: No Edema, No Gallop, No JVD, No Murmur, Irregularly Irregular Gastrointestinal: Normal Bowel Sounds, No Organomegaly, No Pulsatile Mass, Non Tender, Soft Back: Normal Inspection, No CVA Tenderness, No Vertebral Tenderness Extremity: Normal Capillary Refill, Normal Inspection, Normal Range of Motion, Non Tender, No Calf Tenderness, No Pedal Edema Neurologic/Psychiatric: Alert, Oriented x3, No Motor/Sensory Deficits (generalized all extremites), Normal Mood/Affect Skin: Normal Color, Warm/Dry Lymphatic: No Adenopathy Results/Procedures Lab Patient resulted labs reviewed. FIM Transfers Therapy Code Descriptions/Definitions Functional [place] Measure: 0=Not Assessed/NA 4=Minimal Assistance 1=Total Assistance 5=Supervision or Setup 2=Maximal Assistance 6=Modified [place] 3=Moderate Assistance 7=Complete IndependenceSCALE: Activities may be completed with or without assistive devices. 3-Yjqclxubxi-zsdsnfp completes the activity by him/herself with no assistance from a helper. 5-Set-up or Clean-up Assistance-helper sets up or cleans up; patient completes activity. [place] assists only prior to or following the activity. 4-Supervision or Touching Assistance-helper provides verbal cues and/or touching/steadying and/or contact guard assistance as patient completes activity. Assistance may be provided throughout the activity or intermittently. 3-Partial/Moderate Assistance-helper does LESS THAN HALF the effort. [place] lifts, holds or supports trunk or limbs, but provides less than half the effort. 2-Substantial/Maximal Assistance-helper does MORE THAN HALF the effort. [place] lifts or holds trunk or limbs and provides more than half the effort. 4-Bymxlkcpm-gapzot does ALL the effort. Patient does none of the effort to complete the activity. Or, the assistance of 2 or more helpers is required for the patient to complete the activity. If activity was not attempted, code reason: 7-Patient Refused. 9-Not Applicable-not attempted and the patient did not perform the activity before the current illness, exacerbation or injury. 10-Not Attempted due to Environmental Limitations-(lack of equipment, weather restraints, etc.). 88-Not Attempted due to Medical Conditions or Safety Concerns. Roll Left to Right (QC): 6 Sit to Lying (QC): 6 Sit to Stand (QC): 4 (SBA) Chair/Ujy-yi-Hcmpk Xfer(QC): 4 (SBA. pt stays hunched over to stand pivot transfer.) Car Transfer (QC): 4 (SBA) Gait Training Does the Patient Walk?: Yes Gait (FIM): 5 Distance (FIM): 3=150 ft Distance: 100'x2 Walk 10 feet (QC): 6 Walk 50 ft with 2 Turns(QC): 4 (SBA) Walk 150 ft (QC): 4 (SBA) Walking 10ft/uneven surface-QC: 4 (CGA) Gait Persons Needed: 1 Gait Assistive Device: FWW Wheelchair Training Does the Pt Use a Wheelchair?: No Stair Training #of Steps: 1 1 Step (curb) (QC): 3 (Mari. pt accepts less weight throught the R LE to go up step ) 4 Steps (QC): 88 12 Steps (QC): 88 Balance Picking up an Object (QC): 3 (modA. Pt was unstable but able to get to pen and back up with 1 hand on FWW) ADL-Treatment Eating (QC): 6 Oral Hygiene (QC): 5 (Set up seated at sink to brush teeth and hair.) Shower/Bathe Self (QC): 4 (SBA with use of LH sponge.) Upper Body Dressing (QC): 5 Lower Body Dressing (QC): 4 (Pt. educated on AE for LE dressing. However, did not need it during tasks.) Toileting Hygiene (QC): 4 (SBA) Toilet Transfer (QC): 4 Assessment/Plan Assessment and Plan Assess & Plan/Chief Complaint Assessment: Respiratory failure now improved off biPAP and Vapotherm Severe COPD Former smoker AF OAC ARF on CRI HTN Diabetes nlo-es-llzaesf Plan: IRF protocols with 03/10 for expected slow recovery due to severe weakness Monitor oxygen and creatinine O2 Nebs Much improved Dr Luna consultation due to severity of her COPD Improved dramatically Monitor for low sugars (1) COPD (chronic obstructive pulmonary disease) (2) Debility (3) Hyperkalemia Status: Acute (4) Hyperphosphatemia Status: Acute (5) Respiratory failure Status: Acute (6) BiPAP (biphasic positive airway pressure) dependence (7) DVT prophylaxis Status: Acute (8) Elevated AST (SGOT) Status: Acute (9) Acute renal insufficiency Status: Acute (10) Diabetes mellitus, type 2 Status: Chronic (11) CKD (chronic kidney disease) Status: Chronic (12) A-fib (13) GERD (gastroesophageal reflux disease) Status: Chronic (14) HTN (hypertension) Status: Chronic (15) HLD (hyperlipidemia) Status: Chronic ZACK ESCOBEDO DO Jan 17, 2019 08:36 POS
[2019-01-17] MEDS: ASPIRIN E.C. 81 MG (ECOTRIN) TAB PO SCH (08:39)
[2019-01-17] MEDS: DRONEDARONE TABLET 400 MG TABLET PO SCH ×2 (08:39→21:01)
[2019-01-17] MEDS: GABAPENTIN 600 MG (NEURONTIN) TAB PO SCH ×2 (08:39→21:02)
[2019-01-17] MEDS: DILTIAZEM 240 MG (CARDIZEM CD) CAP PO SCH (08:39)
[2019-01-17] MEDS: cloNIDine 0.1 MG (CATAPRES) TAB PO SCH ×2 (08:39→21:01)
[2019-01-17] MEDS: ISOSORBIDE MONONITRATE 60 MG (IMDUR) TAB PO SCH (08:39)
[2019-01-17] MEDS: PANTOPRAZOLE 40 MG (PROTONIX) TAB PO SCH (08:39)
--- NOTE | 2019-01-17 09:08 | Occupational Ther Daily Note ---
OT Current Status-Daily Note Subjective Pt reported that she is tired. No c/o of pain. Appearance Pt was in bed when OT entered the room. Pt agrees to therapy treatment. Mental Status/Objective Patient Orientation: Person, Place, Time, Situation Attachments: Oxygen, Telemetry ADL-Treatment Therapy Code Descriptions/Definitions Functional [place] Measure: 0=Not Assessed/NA 4=Minimal Assistance 1=Total Assistance 5=Supervision or Setup 2=Maximal Assistance 6=Modified [place] 3=Moderate Assistance 7=Complete IndependenceSCALE: Activities may be completed with or without assistive devices. 0-Odrrxefrla-roxpzxd completes the activity by him/herself with no assistance from a helper. 5-Set-up or Clean-up Assistance-helper sets up or cleans up; patient completes activity. [place] assists only prior to or following the activity. 4-Supervision or Touching Assistance-helper provides verbal cues and/or touching/steadying and/or contact guard assistance as patient completes activity. Assistance may be provided throughout the activity or intermittently. 3-Partial/Moderate Assistance-helper does LESS THAN HALF the effort. [place] lifts, holds or supports trunk or limbs, but provides less than half the effort. 2-Substantial/Maximal Assistance-helper does MORE THAN HALF the effort. [place] lifts or holds trunk or limbs and provides more than half the effort. 8-Mypxmbzkz-hnfvko does ALL the effort. Patient does none of the effort to complete the activity. Or, the assistance of 2 or more helpers is required for the patient to complete the activity. If activity was not attempted, code reason: 7-Patient Refused. 9-Not Applicable-not attempted and the patient did not perform the activity before the current illness, exacerbation or injury. 10-Not Attempted due to Environmental Limitations-(lack of equipment, weather restraints, etc.). 88-Not Attempted due to Medical Conditions or Safety Concerns. Oral Hygiene (QC): 4 (Pt reported that she is getting dizzy so she required SBA when completing oral hygeine standing at sink.) Bathing Location: L Arm, R Arm, L Upper Leg, R Upper Leg, L Lower Leg (including foot) (Long handled sponge), R Lower Leg (including foot) (Long handled sponge), Chest, Abdomen, Buttocks, Perineal Area Shower/Bathe Self (QC): 5 (Using grabbars , hand held shower and long handled sponge, pt completed shower with set up.) Upper Body Dressing (QC): 5 (Required set up only.) Lower Body Dressing (QC): 5 (Pt required set up without equipment to don pants and underwear, but required sock aid to don sock while seated on chair.) Toileting Hygiene (QC): 7 Toilet Transfer (QC): 4 (SBA to transfer to toilet while waiting for shower to heat.) PT was in bed when OT entered the room. Pt stated the she gets dizzy when she stands up. Pt. required SBA to get off the bed for safety purposes. PT ambulated to shower with walker. Pt completed shower seated on the shower bench. Pt ambulated to the recliner with walker requiring SBA. Pt seated in recliner will all needs met. Education OT Patient Education: Energy conservation, Modified ADL techniques, Progress toward Goal/Update tx plan, Purpose of tx/functional activities, Reviewed precautions, Rehab process, Safety issues, Transfer techniques, Use of adapted equipment Teaching Recipient: Patient Teaching Methods: Demonstration, Discussion Response to Teaching: Verbalize Understanding, Return Demonstration OT Short Term Goals Short Term Goals Grooming(FIM): 6 Upper Body Dressing(FIM): 4 (met) Lower Body Dressing(FIM): 3 (met) Additional Short Term Goals: 1-Demonstrate ADL Tasks, 2-Verbalize Understanding, 3-ImproveStrength/Diane 1=Demonstrate adherence to instructed precautions during ADL tasks. 2=Patient will verbalize/demonstrate understanding of assistive devices/modifications for ADL. 3=Patient will improve strength/tolerance for activity to enable patient to perform ADL's. OT Continuous Drier Helper Goals Continuous Drier Helper Goals Eating (QC): 6 (met) Oral Hygiene (QC): 6 Shower/Bathe Self (QC): 6 Upper Body Dressing (QC): 6 Lower Body Dressing (QC): 6 On/Off Footwear (QC): 6 Toileting Hygiene (QC): 6 Toilet/Commode Transfer (QC): 6 Additional Goals: 1-Demonstrate ADL Tasks, 2-Verbalize Understanding, 3- ImproveStrength/Diane 1=Demonstrate adherence to instructed precautions during ADL tasks. 2=Patient will verbalize/demonstrate understanding of assistive devices/modifications for ADL. 3=Patient will improve strength/tolerance for activity to enable patient to perform ADL's. OT Education/Plan Problem List/Assessment Assessment: Decreased Activ Tolerance, Dependent Transfers, Impaired Funct Balance, Impaired I ADL's, Impaired Self-Care Skills Discharge Recommendations Plan/Recommendations: Continue POC Therapy Discharge Recommendati: Post Acute OT Equpiment Recommendations-D/C: Sock Aide Treatment Plan/Plan of Care Treatment,Training & Education: Yes Patient would benefit from OT for education, treatment and training to promote independence in ADL's, mobility, safety and/or upper extremity function for ADL's. Plan of Care: ADL Retraining, Caregiver Training, Functional Mobility, Group Exercise/Act as Ind, UE Funct Exercise/Act Treatment Duration: Jan 27, 2019 Frequency: At least 5 of 7 days/Wk (IRF) Estimated Hrs Per Day: 1.5 hours per day Agreement: Yes Rehab Potential: Good Time/GCodes Start Time: 08:15 Stop Time: 09:00 Total Time Billed (hr/min): 45 Billed Treatment Time 1, ADL X 45 minutes DOV BADILLO OT Jan 17, 2019 09:08 POS
--- NOTE | 2019-01-17 09:19 | Progress Note ---
STANISLAVSHREYA CORNEJO [facility] 01/17/1917: Progress Note CC: Shortness of Breath, Sleep Apnea * Pt states she was very tired after her therapy yesterday and states she had her best sleep last night * She states she did get short of breath, have some nausea, feel shaky, and lightheaded toward the end of her therapy * She had a significant headache then as well, but it has gotten a little better since resting * She has a cough when she takes deep breaths still * She was able to walk with the walker a significant distance before she started to feel tired * She use the walker with minimal assistance SHANAE ESCOBEDO DO 01/17/1921: Supervisory-Addendum Brief Verification & Attestation Participated in pt care: history, MDM, physical Personally performed: exam, history, MDM, supervision of care Care discussed with: Medical Student Procedures: n/a Results interpretation: Verified all documentation Verification and Attestation of Medical Student E/M Service A medical student performed and documented this service in my presence. I reviewed and verified all information documented by the medical student and made modifications to such information, when appropriate. I personally performed the physical exam and medical decision making. Shanae Escobedo, Jan 17, 2019,09:23 SHREYA [place] [facility] KATIA Jan 17, 2019 09:19 SHANAE GRACIA DO Jan 17, 2019 09:23 POS
--- NOTE | 2019-01-17 10:00 | Physical Therapy Daily Note ---
PT Daily Note-Current Subjective pt in chair pre-tx. pt agrees to PT this morning. Pt reports no pain this morning. pre tx O2 sats 97% and HR 85bpm Appearance Pt in chair post-tx. pt with room phone, call light, and tray table in reach with all needs met at this time. post tx O2 sats 92% and HR 107bpm Mental Status Patient Orientation: Person, Place, Time, Situation Attachments: Oxygen (2L from high flow nasal canula), IV Transfers SCALE: Activities may be completed with or without assistive devices. 9-Dgxrlotdbp-flboifw completes the activity by him/herself with no assistance from a helper. 5-Set-up or Clean-up Assistance-helper sets up or cleans up; patient completes activity. [place] assists only prior to or following the activity. 4-Supervision or Touching Assistance-helper provides verbal cues and/or touching/steadying and/or contact guard assistance as patient completes activity. Assistance may be provided throughout the activity or intermittently. 3-Partial/Moderate Assistance-helper does LESS THAN HALF the effort. [place] lifts, holds or supports trunk or limbs, but provides less than half the effort. 2-Substantial/Maximal Assistance-helper does MORE THAN HALF the effort. [place] lifts or holds trunk or limbs and provides more than half the effort. 4-Tsuhyrpmu-zyiktl does ALL the effort. Patient does none of the effort to complete the activity. Or, the assistance of 2 or more helpers is required for the patient to complete the activity. If activity was not attempted, code reason: 7-Patient Refused. 9-Not Applicable-not attempted and the patient did not perform the activity before the current illness, exacerbation or injury. 10-Not Attempted due to Environmental Limitations-(lack of equipment, weather restraints, etc.). 88-Not Attempted due to Medical Conditions or Safety Concerns. Sit to Stand (QC): 6 Weight Bearing Right Lower Extremity: Right Weight Bearing/Tolerated Left Lower Extremity: Left Weight Bearing/Tolerated Gait Training Distance: 200', 100' Walk 10 feet (QC): 6 Walk 50 ft with 2 Turns(QC): 5 Walk 150 ft (QC): 5 Gait Assistive Device: FWW pt continues needing multiple standing rest breaks for SOB. Pt requires assist close enough to get her a seat while walking as she decides she needs to sit and sits very soon after. Wheelchair Training Does the Pt Use a Wheelchair?: No Exercises Standing: Hip Abduction, Heel/toe raises, Mini squats, Side steps Standing Reps: 30 (2sets 15reps) NuStep Minutes: 10 NuStep Workload: 4 Treatments Pt performed LE strengthening exercises, skilled ambulation training, transfer training, and education this session Assessment Current Status: Good Progress pt continues to victoriano increased activity on her feet without needing to sit as often. Pt had decreased c/o dizziness this session and only required 2 rest breaks for being dizzy. Pt maintain O2 sats above 91% this session. PT Short Term Goals Short Term Goals Time Frame: Jan 20, 2019 Gait Distance Comment: 150' Gait Assistive Device: FWW (SBA) PT Radio Time Sales Supervisor Goals Half-Way Goals PT Radio Time Sales Supervisor Goals Time Frame: Feb 03, 2019 Sit to Lying (QC): 6 Lying-Sitting on Side/Bed(QC): 6 Sit to Stand (QC): 6 Roll Left to Right (QC): 6 Chair/Nhd-ef-Scjor Xfer(QC): 6 Car Transfer (QC): 6 Does the Patient Walk: Yes Distance: 300' Walk 10 feet (QC): 6 Walk 10ft-Uneven Surface(QC): 4 (SBA) Walk 50ft with 2 Turns (QC): 6 Walk 150 ft (QC): 6 Gait Assistive Device: FWW Does the Pt use WC or Scooter?: No # of Steps: 4 1 Step (curb) (QC): 4 (SBA) 4 Steps (QC): 4 (SBA) Picking up an Object (QC): 4 (SBA) PT Plan Problem List Problem List: Activity Tolerance, Functional Strength, Safety, Balance, Gait, Transfer, Bed Mobility Treatment/Plan Treatment Plan: Continue Plan of Care Treatment Plan: Bed Mobility, Education, Functional Activity Diane, Functional Strength, Group Therapy, Gait, Safety, Therapeutic Exercise, Transfers Treatment Duration: Feb 03, 2019 Frequency: At least 5 of 7 days/Wk (IRF) Estimated Hrs Per Day: 1.5 hours per day Patient and/or Family Agrees t: Yes Safety Risks/Education Patient Education: Gait Training, Transfer Techniques, Steps, Correct Positioning, Safety Issues Teaching Recipient: Patient Teaching Methods: Demonstration, Discussion Response to Teaching: Return Demonstration, Reinforcement Needed Time/GCodes Time In: 900 Time Out: 1000 Total Billed Treatment Time: 60 Total Billed Treatment 1 visit FA 30' GT 30' FLORINDA SMART PT Jan 17, 2019 10:00 POS
--- NOTE | 2019-01-17 10:50 | NUR ---
Pastoral care visit.
--- NOTE | 2019-01-17 12:16 | Occupational Ther Daily Note ---
OT Current Status-Daily Note Subjective Pt seated on the recliner when OT came back for second session. No c/o of pain. Mental Status/Objective Patient Orientation: Person, Place, Time, Situation Attachments: Oxygen, Telemetry ADL-Treatment Therapy Code Descriptions/Definitions Functional [place] Measure: 0=Not Assessed/NA 4=Minimal Assistance 1=Total Assistance 5=Supervision or Setup 2=Maximal Assistance 6=Modified [place] 3=Moderate Assistance 7=Complete IndependenceSCALE: Activities may be completed with or without assistive devices. 6-Viejcdtsrk-plwtexv completes the activity by him/herself with no assistance from a helper. 5-Set-up or Clean-up Assistance-helper sets up or cleans up; patient completes activity. [place] assists only prior to or following the activity. 4-Supervision or Touching Assistance-helper provides verbal cues and/or touching/steadying and/or contact guard assistance as patient completes activity. Assistance may be provided throughout the activity or intermittently. 3-Partial/Moderate Assistance-helper does LESS THAN HALF the effort. [place] lifts, holds or supports trunk or limbs, but provides less than half the effort. 2-Substantial/Maximal Assistance-helper does MORE THAN HALF the effort. [place] lifts or holds trunk or limbs and provides more than half the effort. 1-Hnyjrwlbl-alfnjp does ALL the effort. Patient does none of the effort to complete the activity. Or, the assistance of 2 or more helpers is required for the patient to complete the activity. If activity was not attempted, code reason: 7-Patient Refused. 9-Not Applicable-not attempted and the patient did not perform the activity before the current illness, exacerbation or injury. 10-Not Attempted due to Environmental Limitations-(lack of equipment, weather restraints, etc.). 88-Not Attempted due to Medical Conditions or Safety Concerns. Other Treatment Pt agreed to therapy treatment. Pt ambulated to laundry room with walker and CGA. Pt completed laundry task of loading washer and setting it with supervision only. Pt. also educated on safe ways to complete laundry tasks at home with good energy conservation techniques. After this task, pt. ambulated to the gym with walker and CGA, but required multiple brief rest breaks. OT checked her oxygen, sats at 97% on 2 L02. Pt ambulated to the gym for exercises. Pt participated in arm bike exercise 10 minutes with moderate resistance to improve activity tolerance for functional tasks. OT encouraged pt. to take breaks. OT checked her oxygen again, and sats were 97%. Pt completed exercise and ambulated back to the room with walker and CGA. Pt seated in her recliner, phone and call light in reach. All needs met. Education OT Patient Education: Correct positioning, Energy conservation, Exercise program, Modified ADL techniques, Progress toward Goal/Update tx plan, Purpose of tx/functional activities, Reviewed precautions, Rehab process, Safety issues, Transfer techniques Teaching Recipient: Patient Teaching Methods: Demonstration, Discussion Response to Teaching: Verbalize Understanding, Return Demonstration OT Short Term Goals Short Term Goals Grooming(FIM): 6 Upper Body Dressing(FIM): 4 (met) Lower Body Dressing(FIM): 3 (met) Additional Short Term Goals: 1-Demonstrate ADL Tasks, 2-Verbalize Understanding, 3-ImproveStrength/Diane 1=Demonstrate adherence to instructed precautions during ADL tasks. 2=Patient will verbalize/demonstrate understanding of assistive devices/modifications for ADL. 3=Patient will improve strength/tolerance for activity to enable patient to perform ADL's. OT Long-Term Goals Skiver Operator Goals Eating (QC): 6 (met) Oral Hygiene (QC): 6 Shower/Bathe Self (QC): 6 Upper Body Dressing (QC): 6 Lower Body Dressing (QC): 6 On/Off Footwear (QC): 6 Toileting Hygiene (QC): 6 Toilet/Commode Transfer (QC): 6 Additional Goals: 1-Demonstrate ADL Tasks, 2-Verbalize Understanding, 3- ImproveStrength/Diane 1=Demonstrate adherence to instructed precautions during ADL tasks. 2=Patient will verbalize/demonstrate understanding of assistive devices/m odifications for ADL. 3=Patient will improve strength/tolerance for activity to enable patient to perform ADL's. OT Education/Plan Problem List/Assessment Assessment: Decreased Activ Tolerance, Decreased Safety Aware, Impaired Funct Balance, Impaired I ADL's, Impaired Self-Care Skills Discharge Recommendations Plan/Recommendations: Continue POC Therapy Discharge Recommendati: Post Acute OT Treatment Plan/Plan of Care Patient would benefit from OT for education, treatment and training to promote independence in ADL's, mobility, safety and/or upper extremity function for ADL's. Plan of Care: ADL Retraining, Caregiver Training, Functional Mobility, Group Exercise/Act as Ind, UE Funct Exercise/Act Treatment Duration: Jan 27, 2019 Frequency: At least 5 of 7 days/Wk (IRF) Estimated Hrs Per Day: 1.5 hours per day Agreement: Yes Rehab Potential: Good Time/GCodes Start Time: 11:15 Stop Time: 12:00 Total Time Billed (hr/min): 45 Billed Treatment Time 1, FA 35 Minutes 1, Ex 10 minutes DOV BADILLO OT Jan 17, 2019 12:16 POS
--- NOTE | 2019-01-17 13:31 | Physical Therapy Daily Note ---
PT Daily Note-Current Subjective pt in chair pre tx. Pt agrees to PT this afternoon. pts pre tx O2 sats 97% HR was 77bpm. Appearance pt in chair post-tx with table, call light and phone in reach with all needs met. Pts post-tx O2 sats were 92% and HR was 113bpm Mental Status Patient Orientation: Person, Place, Time, Situation Attachments: Oxygen (2L from high flow nasal canula), IV Transfers SCALE: Activities may be completed with or without assistive devices. 9-Xbveqldcpj-jgxcipy completes the activity by him/herself with no assistance from a helper. 5-Set-up or Clean-up Assistance-helper sets up or cleans up; patient completes activity. [place] assists only prior to or following the activity. 4-Supervision or Touching Assistance-helper provides verbal cues and/or touching/steadying and/or contact guard assistance as patient completes activity. Assistance may be provided throughout the activity or intermittently. 3-Partial/Moderate Assistance-helper does LESS THAN HALF the effort. [place] lifts, holds or supports trunk or limbs, but provides less than half the effort. 2-Substantial/Maximal Assistance-helper does MORE THAN HALF the effort. [place] lifts or holds trunk or limbs and provides more than half the effort. 9-Ygpcggyeb-zvyaal does ALL the effort. Patient does none of the effort to complete the activity. Or, the assistance of 2 or more helpers is required for the patient to complete the activity. If activity was not attempted, code reason: 7-Patient Refused. 9-Not Applicable-not attempted and the patient did not perform the activity before the current illness, exacerbation or injury. 10-Not Attempted due to Environmental Limitations-(lack of equipment, weather restraints, etc.). 88-Not Attempted due to Medical Conditions or Safety Concerns. Sit to Stand (QC): 4 (SBA) Weight Bearing Right Lower Extremity: Right Weight Bearing/Tolerated Left Lower Extremity: Left Weight Bearing/Tolerated Gait Training Distance: 150'x2 Walk 10 feet (QC): 4 (SBA) Walk 50 ft with 2 Turns(QC): 4 (SBA) Walk 150 ft (QC): 4 (SBA) Gait Assistive Device: FWW Pt was more upright this afternoon with gait. Wheelchair Training Does the Pt Use a Wheelchair?: No Stair Training Stair Training: Handrails/: 2 handrails #of Steps: 12 1 Step (curb) (QC): 4 (CGA) 4 Steps (QC): 4 (CGA) 12 Steps (QC): 4 (CGA) Stairs: Pattern: Reciprocal reciprocal gait up. step to down. Exercises Seated Therapy Exercises: Ankle pumps, Long arc quads, Hip flexion Seated Reps: 15 Treatments Pt performed LE stengthening exercises, skilled gait training, and transfer training, and education. Assessment Current Status: Fair Progress Pt required 1 sitting break during gait today but required no break during flight of 12 steps today. PT Short Term Goals Short Term Goals Time Frame: Jan 20, 2019 Gait Distance Comment: 150' Gait Assistive Device: FWW (SBA) PT Visitor Information Assistant Goals Visitor Information Assistant Goals PT Visitor Information Assistant Goals Time Frame: Feb 03, 2019 Sit to Lying (QC): 6 Lying-Sitting on Side/Bed(QC): 6 Sit to Stand (QC): 6 Roll Left to Right (QC): 6 Chair/Vsj-qu-Iinsb Xfer(QC): 6 Car Transfer (QC): 6 Does the Patient Walk: Yes Distance: 300' Walk 10 feet (QC): 6 Walk 10ft-Uneven Surface(QC): 4 (SBA) Walk 50ft with 2 Turns (QC): 6 Walk 150 ft (QC): 6 Gait Assistive Device: FWW Does the Pt use WC or Scooter?: No # of Steps: 4 1 Step (curb) (QC): 4 (SBA) 4 Steps (QC): 4 (SBA) Picking up an Object (QC): 4 (SBA) PT Plan Problem List Problem List: Activity Tolerance, Functional Strength, Safety, Balance, Gait, Transfer, Bed Mobility Treatment/Plan Treatment Plan: Continue Plan of Care Treatment Plan: Bed Mobility, Education, Functional Activity Diane, Functional Strength, Group Therapy, Gait, Safety, Therapeutic Exercise, Transfers Treatment Duration: Feb 03, 2019 Frequency: At least 5 of 7 days/Wk (IRF) Estimated Hrs Per Day: 1.5 hours per day Patient and/or Family Agrees t: Yes Safety Risks/Education Patient Education: Gait Training, Transfer Techniques, Steps, Correct Posi tioning, Safety Issues Teaching Recipient: Patient Teaching Methods: Demonstration, Discussion Response to Teaching: Return Demonstration, Reinforcement Needed Time/GCodes Time In: 1300 Time Out: 1330 Total Billed Treatment Time: 30 Total Billed Treatment 1 visit FA 30' FLORINDA SMART PT Jan 17, 2019 13:30 POS
[2019-01-17 14:34] VITALS: BP 116/74
[2019-01-17] MEDS: RIVAROXABAN 15 MG TABLET (XARELTO) PO SCH (17:23)
[2019-01-17 18:00] VITALS: BP 146/64
[2019-01-17] MEDS: PRIMIDONE 50 MG TAB (MYSOLINE) PO SCH (21:01)
[2019-01-17] MEDS: FENOFIBRATE 134 MG (LOFIBRA) CAPSULE PO SCH (21:01)
[2019-01-17] MEDS: MAGNESIUM OXIDE (MAG-OX)400 MG TAB PO SCH (21:01)
[2019-01-18] MEDS: RT-ALBUTEROL/IPRATROPIUM 3 ML (DUONEB) VIAL INH SCH ×4 (01:57→21:59)
[2019-01-18 05:14] LABS: BASOPHILS % (AUTO) 0 % (0-10); EOSINOPHILS # (AUTO) 0.1 10^3/uL (0.0-0.3); EOSINOPHILS % (AUTO) 1 % (0-10); HEMATOCRIT 31 % (35-52); HEMOGLOBIN 9.2 G/DL (11.5-16.0); LYMPHOCYTES # (AUTO) 2.1 X 10^3 (1.0-4.0); LYMPHOCYTES % (AUTO) 18 % (12-44); MEAN CORPUSCULAR HEMOGLOBIN 26 PG (25-34); MEAN CORPUSCULAR HGB CONC 30 G/DL (32-36); MEAN CORPUSCULAR VOLUME 87 FL (80-99); MEAN PLATELET VOLUME 10.2 FL (7.4-10.4); MONOCYTES # (AUTO) 0.8 X 10^3 (0.0-1.0); MONOCYTES % (AUTO) 7 % (0-12); NEUTROPHILS # (AUTO) 8.7 X 10^3 (1.8-7.8); NEUTROPHILS % (AUTO) 75 % (42-75); PLATELET COUNT 306 10^3/uL (130-400); RED CELL DISTRIBUTION WIDTH 14.9 % (10.0-14.5); WHITE BLOOD COUNT 11.7 10^3/uL (4.3-11.0)
[2019-01-18 05:31] LABS: ALBUMIN 3.3 GM/DL (3.2-4.5); BILIRUBIN,TOTAL 0.3 MG/DL (0.1-1.0); CALCIUM 8.8 MG/DL (8.5-10.1); CREATININE SERUM 1.35 MG/DL (0.60-1.30); MAGNESIUM 2.6 MG/DL (1.6-2.4); POTASSIUM 4.5 MMOL/L (3.6-5.0); TOTAL PROTEIN 6.4 GM/DL (6.4-8.2)
[2019-01-18 05:47] VITALS: BP 144/73
--- NOTE | 2019-01-18 05:52 | NUR ---
Blood sugar was 44 at 0448. Followed hypoglycemia protocol. Rechecked and blood sugar up to 85. Will continue to monitor.
[2019-01-18] MEDS: inSUlin ASPART (NovoLOG) 1 UNIT/0.01 ML (CHARGE PER UNIT) SC SCH ×4 (05:53→21:11)
[2019-01-18] MEDS ORDERED: predniSONE 10 MG TAB PO SCH (07:00)
--- NOTE | 2019-01-18 09:07 | PM&R Progress Note ---
Subjective HPI/CC On Admission Date Seen by Provider: Jan 18, 2019 Time Seen by Provider: 08:30 CC: Debility Hospital course from med-surg: Pt was admitted to the ICU from the ER for shortness of breath and chest pain with deep breathing. She was started on IV steroids, antibiotics, and placed on Vapotherm with a BiPAP at night. She improved after a couple days in the ICU and was moved to med/surg after stopping Vapotherm and beginning 3L O2 nasal cannula while continuing BiPAP at night. She continued to improve reporting no trouble breathing while receiving DuoNeb treatments, nasal cannula O2, and BiPAP at night. She did feel extremely wobbly trying to stand and walking was very difficult requiring a lot of assistance from staff. She was recommended and evaluated for the Rehab unit to help with her recovery. She was discharged very willing and motivated to enter the Rehab unit. HPI: Patient is adjusting well to the IRF protocols. Very weak and tearful yesterday in PT when ambulating. Slow recovery predicted so I ordered 03/10 due to her severe weakness and difficulty coping. Patient's creatinine did increase to 2.75 and h/o CRI and DM nephropathy so will monitor that closely and we have DC abx that could likely be the source. Hyperglycemia from steroids continue and she has severe insulin resistance. Patient denies pain and no BM for several days and cath was DC so will work towards increasing strength and be able to DC home with . Subjective/Events-last exam Pt doing very well Fatigued at the end of the day after structured PT Tapering down steroids, she will be on 20mg starting tomorrow she was on 30mg today Oxygen maintained Nebulizer treatments maintained Monitoring renal function closely Blood sugars are very labile and brittle but that is chronic Checked meds and labs Conferred with RN Reviewed therapy notes Review of Systems General: Fatigue Pulmonary: Dyspnea Objective Exam Vital Signs Vital Signs Date Time Temp Pulse Resp B/P (MAP) Pulse Ox O2 Delivery O2 Flow Rate FiO2 01/18/19 14:39 96 High Flow N/C 2.00 01/18/19 13:00 111 01/18/19 05:47 36.3 20 144/73 (96) 01/17/19 14:34 28 Capillary Refill : Less Than 3 Seconds General Appearance: No Apparent Distress, WD/WN, Anxious, Chronically ill HEENT: PERRL/EOMI, Normal ENT Inspection, Pharynx Normal, Moist Mucous Membranes Neck: Full Range of Motion, Normal Inspection, Non Tender, Supple Respiratory: Chest Non Tender, Normal Breath Sounds, No Accessory Muscle Use, No Respiratory Distress, Crackles Cardiovascular: No Edema, No Gallop, No JVD, No Murmur, Irregularly Irregular Gastrointestinal: Normal Bowel Sounds, No Organomegaly, No Pulsatile Mass, Non Tender, Soft Back: Normal Inspection, No CVA Tenderness, No Vertebral Tenderness Extremity: Normal Capillary Refill, Normal Inspection, Normal Range of Motion, Non Tender, No Calf Tenderness, No Pedal Edema Neurologic/Psychiatric: Alert, Oriented x3, No Motor/Sensory Deficits (general ized all extremites), Normal Mood/Affect Skin: Normal Color, Warm/Dry Lymphatic: No Adenopathy Results/Procedures Lab Laboratory Tests 01/18/19 04:30 Patient resulted labs reviewed. FIM Transfers Therapy Code Descriptions/Definitions Functional [place] Measure: 0=Not Assessed/NA 4=Minimal Assistance 1=Total Assistance 5=Supervision or Setup 2=Maximal Assistance 6=Modified [place] 3=Moderate Assistance 7=Complete IndependenceSCALE: Activities may be completed with or without assistive devices. 5-Xwdoraizoh-wvaocqt completes the activity by him/herself with no assistance from a helper. 5-Set-up or Clean-up Assistance-helper sets up or cleans up; patient completes activity. [place] assists only prior to or following the activity. 4-Supervision or Touching Assistance-helper provides verbal cues and/or touching/steadying and/or contact guard assistance as patient completes activity. Assistance may be provided throughout the activity or intermittently. 3-Partial/Moderate Assistance-helper does LESS THAN HALF the effort. [place] lifts, holds or supports trunk or limbs, but provides less than half the effort. 2-Substantial/Maximal Assistance-helper does MORE THAN HALF the effort. [place] lifts or holds trunk or limbs and provides more than half the effort. 7-Pwczqgcog-xbqxuv does ALL the effort. Patient does none of the effort to complete the activity. Or, the assistance of 2 or more helpers is required for the patient to complete the activity. If activity was not attempted, code reason: 7-Patient Refused. 9-Not Applicable-not attempted and the patient did not perform the activity before the current illness, exacerbation or injury. 10-Not Attempted due to Environmental Limitations-(lack of equipment, weather restraints, etc.). 88-Not Attempted due to Medical Conditions or Safety Concerns. Roll Left to Right (QC): 6 Sit to Lying (QC): 6 Sit to Stand (QC): 4 (SBA) Chair/Xgc-hf-Duxma Xfer(QC): 4 (SBA. pt stays hunched over to stand pivot transfer.) Car Transfer (QC): 4 (SBA) Gait Training Does the Patient Walk?: Yes Gait (FIM): 5 Distance (FIM): 3=150 ft Distance: 150'x2 Walk 10 feet (QC): 4 (SBA) Walk 50 ft with 2 Turns(QC): 4 (SBA) Walk 150 ft (QC): 4 (SBA) Walking 10ft/uneven surface-QC: 4 (CGA) Gait Persons Needed: 1 Gait Assistive Device: FWW Wheelchair Training Does the Pt Use a Wheelchair?: No Stair Training Stair Training: Handrails/: 2 handrails #of Steps: 12 1 Step (curb) (QC): 4 (CGA) 4 Steps (QC): 4 (CGA) 12 Steps (QC): 4 (CGA) Stairs: Pattern: Reciprocal Balance Picking up an Object (QC): 3 (modA. Pt was unstable but able to get to pen and back up with 1 hand on FWW) ADL-Treatment Eating (QC): 6 Oral Hygiene (QC): 4 (Pt reported that she is getting dizzy so she required SBA when completing oral hygeine standing at sink.) Bathing Location: L Arm, R Arm, L Upper Leg, R Upper Leg, L Lower Leg (including foot) (Long handled sponge), R Lower Leg (including foot) (Long handled sponge), Chest, Abdomen, Buttocks, Perineal Area Shower/Bathe Self (QC): 5 (Using grabbars , hand held shower and long handled sponge, pt completed shower with set up.) Upper Body Dressing (QC): 5 (Required set up only.) Lower Body Dressing (QC): 5 (Pt required set up without equipment to don pants and underwear, but required sock aid to don sock while seated on chair.) Toileting Hygiene (QC): 7 Toilet Transfer (QC): 4 (SBA to transfer to toilet while waiting for shower to heat.) Assessment/Plan Assessment and Plan Assess & Plan/Chief Complaint Assessment: Respiratory failure now improved off biPAP and Vapotherm Severe COPD Former smoker AF OAC ARF on CRI HTN Diabetes fgv-dq-gjnmlvx Plan: IRF protocols with 03/10 for expected slow recovery due to severe weakness Monitor oxygen and creatinine O2 Nebs Much improved Dr Luna consultation due to severity of her COPD Improved dramatically Monitor for low sugars Improved renal function now (1) COPD (chronic obstructive pulmonary disease) (2) Debility (3) Hyperkalemia Status: Acute (4) Hyperphosphatemia Status: Acute (5) Respiratory failure Status: Acute (6) BiPAP (biphasic positive airway pressure) dependence (7) DVT prophylaxis Status: Acute (8) Elevated AST (SGOT) Status: Acute (9) Acute renal insufficiency Status: Acute (10) Diabetes mellitus, type 2 Status: Chronic (11) CKD (chronic kidney disease) Status: Chronic (12) A-fib (13) GERD (gastroesophageal reflux disease) Status: Chronic (14) HTN (hypertension) Status: Chronic (15) HLD (hyperlipidemia) Status: Chronic ZACK ESCOBEDO DO Jan 18, 2019 09:07 POS
[2019-01-18] MEDS: PANTOPRAZOLE 40 MG (PROTONIX) TAB PO SCH (09:14)
[2019-01-18] MEDS: ASPIRIN E.C. 81 MG (ECOTRIN) TAB PO SCH (09:14)
[2019-01-18] MEDS: DRONEDARONE TABLET 400 MG TABLET PO SCH ×2 (09:14→21:13)
[2019-01-18] MEDS: GABAPENTIN 600 MG (NEURONTIN) TAB PO SCH ×2 (09:15→21:14)
[2019-01-18] MEDS: SENNA W/DOCUSATE (SENOKOT S) TABLET PO SCH ×2 (09:15→21:14)
[2019-01-18] MEDS: DILTIAZEM 240 MG (CARDIZEM CD) CAP PO SCH (09:15)
[2019-01-18] MEDS: ISOSORBIDE MONONITRATE 60 MG (IMDUR) TAB PO SCH (09:15)
[2019-01-18] MEDS: POLYETHYLENE GLYCOL 17 GM (MIRALAX) PACK PO SCH ×2 (09:18→21:48)
[2019-01-18] MEDS: cloNIDine 0.1 MG (CATAPRES) TAB PO SCH ×2 (09:23→21:13)
--- NOTE | 2019-01-18 09:23 | Physical Therapy Daily Note ---
PT Daily Note-Current Subjective Pt laying Supine in bed upon arrival. Pt agrees PT. Pain Numeric Pain Scale: 6 Location: Right Location Body Site: Hip Pain Description: Ache Mental Status Patient Orientation: Person, Place, Time, Situation Attachments: Oxygen Transfers SCALE: Activities may be completed with or without assistive devices. 3-Jeiekdmclo-ljadakz completes the activity by him/herself with no assistance from a helper. 5-Set-up or Clean-up Assistance-helper sets up or cleans up; patient completes activity. [place] assists only prior to or following the activity. 4-Supervision or Touching Assistance-helper provides verbal cues and/or touching/steadying and/or contact guard assistance as patient completes activity. Assistance may be provided throughout the activity or intermittently. 3-Partial/Moderate Assistance-helper does LESS THAN HALF the effort. [place] lifts, holds or supports trunk or limbs, but provides less than half the effort. 2-Substantial/Maximal Assistance-helper does MORE THAN HALF the effort. [place] lifts or holds trunk or limbs and provides more than half the effort. 7-Vlsqgwjip-cvtzqj does ALL the effort. Patient does none of the effort to complete the activity. Or, the assistance of 2 or more helpers is required for the patient to complete the activity. If activity was not attempted, code reason: 7-Patient Refused. 9-Not Applicable-not attempted and the patient did not perform the activity before the current illness, exacerbation or injury. 10-Not Attempted due to Environmental Limitations-(lack of equipment, weather restraints, etc.). 88-Not Attempted due to Medical Conditions or Safety Concerns. Roll Left to Right (QC): 5 Sit to Lying (QC): 5 Sit to Stand (QC): 5 Chair/Moy-cx-Votkx Xfer(QC): 5 Bed to/from Chair: 5 Weight Bearing Right Lower Extremity: Right Weight Bearing/Tolerated Left Lower Extremity: Left Weight Bearing/Tolerated Gait Training Does the Patient Walk?: Yes Gait: 5 Distance: 200', 100' Walk 10 feet (QC): 5 Walk 50 ft with 2 Turns(QC): 5 Walk 150 ft (QC): 5 Gait Persons Needed: 1 Gait Assistive Device: FWW Pt takes standing RB as needed, occasionally needing Seated RB. Pt is improving with activity tolerance but still a work in progress. Exercises Standing: Hip Abduction, Heel/toe raises, Marching, Mini squats, Weight shifts Standing Reps: 15 NuStep Minutes: 10 NuStep Workload: 4 Treatments Pt transfers to standing. Pt ambulates in hallway then to Therapy Gym. Pt uses NuStep for 10m at WL 4, takes RB then completes Standing EX at //bars. Pt takes RB then ambulates in hallway with RB as needed. Pt returns to room to rest in recliner at end of Rx with all needs met, call light in hand. Assessment Pt is improving with activity tolerance but still needs frequent RB. PT Short Term Goals Short Term Goals Time Frame: Jan 20, 2019 Gait Distance Comment: 150' Gait Assistive Device: FWW (SBA) PT Group Home Goals Mill Helper Goals PT [place] Hel[place] Goals Time Frame: Feb 03, 2019 Sit to Lying (QC): 6 Lying-Sitting on Side/Bed(QC): 6 Sit to Stand (QC): 6 Roll Left to Right (QC): 6 Chair/Lue-ag-Jsucf Xfer(QC): 6 Car Transfer (QC): 6 Does the Patient Walk: Yes Distance: 300' Walk 10 feet (QC): 6 Walk 10ft-Uneven Surface(QC): 4 (SBA) Walk 50ft with 2 Turns (QC): 6 Walk 150 ft (QC): 6 Gait Assistive Device: FWW Does the Pt use WC or Scooter?: No # of Steps: 4 1 Step (curb) (QC): 4 (SBA) 4 Steps (QC): 4 (SBA) Picking up an Object (QC): 4 (SBA) PT Plan Problem List Problem List: Activity Tolerance, Functional Strength, Gait Treatment/Plan Treatment Plan: Continue Plan of Care Treatment Plan: Bed Mobility, Education, Functional Activity Diane, Functional Strength, Group Therapy, Gait, Safety, Therapeutic Exercise, Transfers Treatment Duration: Feb 03, 2019 Frequency: At least 5 of 7 days/Wk (IRF) Estimated Hrs Per Day: 1.5 hours per day Patient and/or Family Agrees t: Yes Safety Risks/Education Patient Education: Gait Training, Transfer Techniques, Correct Positioning, Safety Issues Teaching Recipient: Patient Teaching Methods: Discussion Response to Teaching: Verbalize Understanding Time/GCodes Time In: 815 Time Out: 915 Total Billed Treatment Time: 60 Total Billed Treatment 1, GT x2 (30m) & EX x2 (30m) ALEX ASHLEY PRODUCT SAFETY TECHNICAL ASSISTANT Jan 18, 2019 09:23 POS
[2019-01-18] MEDS: LACTULOSE SYRUP 10GM/15ML (ENULOSE) 30ML UDC PO SCH ×2 (09:24→21:47)
[2019-01-18] MEDS: CYCLOBENZAPRINE 10 MG (FLEXERIL) TAB PO PRN (09:24)
--- NOTE | 2019-01-18 10:04 | Progress Note ---
[facility] 01/18/19 1004: Progress Note CC: Shortness of Breath * She reports being tired yesterday after her workouts with OT and PT * She states that she was able to do a little more yesterday before she would have to stop for a break * She states she has to take breaks due to legs and right hip being tired or weak and not due to breathing issues * She reports wearing her 2L O2 throughout the day not requiring any adjustments during exercise * She would like to get off the O2 if possible * She states she had 2 coughing spells yesterday, but she has been using her incentive spirometer every hour as directed * She states it is hard to actually do the incentive spirometer correctly currently, but she is getting better at it * She reports having a headache yesterday that did require her nurses to give her something for the pain * She also reports a new onset right hip pain that is most bothersome after she has been walking for a little while, but is gone when she sits down to rest * She did report feeling a little dizzy at the end of her workouts when she is getting tired SHANAE ESCOBEDO DO 01/18/19 1638: Supervisory-Addendum Brief Verification & Attestation Participated in pt care: history, MDM, physical Personally performed: exam, history, MDM, supervision of care Care discussed with: Medical Student Procedures: n/a Results interpretation: Verified all documentation Verification and Attestation of Medical Student E/M Service A medical student performed and documented this service in my presence. I reviewed and verified all information documented by the medical student and made modifications to such information, when appropriate. I personally performed the physical exam and medical decision making. Shanae Escobedo, Jan 18, 2019,16:38 [facility] Jan 18, 2019 10:04 SHANAE GRACIA DO Jan 18, 2019 16:38 POS
--- NOTE | 2019-01-18 10:27 | Cardiology Progress Note ---
Subjective Date Seen by Provider: Jan 18, 2019 Time Seen by Provider: 10:10 Subjective/Events-last exam Patient is sitting up in chair, no new complaints. States dyspnea has improved. Review of Systems General: No Chills, No Night Sweats; Fatigue; No Malaise, No Appetite, No Other HEENT: No Head Aches, No Visual Changes, No Eye Pain, No Ear Pain, No Dysphasia, No Sinus Congestion, No Post Nasal Drip, No Sore Throat, No Other Pulmonary: Dyspnea; No Cough, No Pleuritic Chest Pain, No Other Cardiovascular: No: Chest Pain, Palpitations, Orthopnea, Paroxysmal Noc. Dyspnea, Edema, Lt Headedness, Other Objective-Cardiology Exam Last Set of Vital Signs Vital Signs 01/17/19 01/18/19 01/18/19 01/18/19 14:34 05:47 13:00 14:39 Temp 36.3 Pulse 111 Resp 20 B/P (MAP) 144/73 (96) Pulse Ox 96 O2 Delivery High Flow N/C O2 Flow Rate 2.00 FiO2 28 Capillary Refill : Less Than 3 Seconds I&O Intake and Output 01/18/19 00:00 Intake Total 1275 ml Balance 1275 ml Intake Oral 1275 ml # Voids 8 # Bowel Movements 3 General: Alert, Oriented X3, Cooperative HEENT: Atraumatic, PERRLA Neck: Supple, No JVD, No Thyromegaly Lungs: Clear to Auscultation, Normal Air Movement Heart: Regular Rate, Normal S1, Normal S2, No Murmurs Abdomen: Normal Bowel Sounds, Soft, No Tenderness, No Hepatosplenomegaly, No Masses Extremities: No Clubbing, No Cyanosis, Normal Pulses, No Tenderness/Swelling, Other (Mild edema) Skin: No Rashes, No Breakdown, No Significant Lesion Neuro: Normal Gait, Normal Speech, Strength at 5/5 X4 Ext, Normal Tone, Sensation Intact Psych/Mental Status: Mental Status NL, Mood NL Results Lab Laboratory Tests 01/18/19 04:30 A/P-Cardiology Admission Diagnosis Paroxysmal atrial fibrillation Coronary artery disease Hypertension Hyperlipidemia Assessment/Plan Status post respiratory failure, better at this time, has history of severe COPD with multiple exacerbation. Acute renal failure, renal function improving, continue to monitor. Paroxysmal atrial fibrillation, had history of cardioversion, heart rate is cont rolled. Tolerating medication well. Continue to monitor Sinus node dysfunction with history of severe bradycardia, monitor heart rate closely. Mild elevation in troponin level, no active chest pain, no acute EKG changes, probably due to hypoxemia and small vessel disease. Medical therapy is rec ommended continue to monitor Type II myocardial infarction secondary to hypoxemia, last cardiac cat heterization as described below Coronary artery disease, history of stent placement 2 to the LAD. In August 2013 cardiac cath revealed patent stents to LAD, known to have Taxus 320 mm stent in the mid LAD, proximal to that there was a stent placed in 2011 which is 312 mm Ion stent. Both are patent with 40-50 percent in-stent restenosis. Secondary branch had 90 percent stenosis at the ostium. Small artery, not amendable to intervention. Another cardiac catheterization February 2015 showing patent stents in the proximal LAD with 50 percent stenosis beyond the stent and 50 percent stenosis at the midportion of the LAD small vessel disease distally, moderate 40-50 percent stenosis in the right coronary artery with multiple segment of the proximal, mid and distal portion. Cardiac catheterization done March 05, 2017 revealed severe LAD stenosis beyond the previously known stent 3.0. Successful primary stenting using 3.08 mm ALPINE expanded to 3.5 with excellent results, balloon for in-stent restenosis also was made. Most recent cardiac catheterization done March 09, 2018 revealed patent stent with small vessel disease, no intervention required. continue to monitor [id number] score of 4, yearly risk of stroke without oral anticoagulation is 4 percent. Maintained on Xarelto 15mg. Hypertension, continue on current medication monitor blood pressure Renal arterial duplex done July 2015 revealed proximal right renal artery not evaluated, other segments of the left renal artery demonstrated no evidence of significant stenosis, continue to monitor Hyperlipidemia, continue to monitor lipids Obstructive sleep apnea, using C Pap, using oxygen as needed Nonobstructive carotid artery stenosis per carotid duplex done in February 2018, continue to monitor. Diabetes mellitus-managed by primary care physician Chronic pain, followed and managed by primary care physician Obesity, BMI is 37, discussed diet and exercise for weight loss. Patient was seen and evaluated with Kaela, examination performed, management plan was discussed, agree with the current scribed note, I made few changes to the note using Italic font Patient is sitting in a chair, comfortable, feeling well, heart is irregular, currently in atrial fibrillation Tolerating medication well. Continue on current medication Continue to monitor closely Clinical Quality Measures DVT/VTE Risk/Contraindication: Risk Factor Score Per Nursin RFS Level Per Nursing on Admit: 4+=Very High KAELA CAPPS Jan 18, 2019 10:27 am BOOM REED MD Jan 18, 2019 3:35 pm POS
--- NOTE | 2019-01-18 11:56 | Occupational Ther Daily Note ---
OT Current Status-Daily Note Subjective No c/o of pain. Pt stated " Am feeling much better today". Appearance Pt seated on the recliner when OT entered the room. Pt agrees to therapy treatment. Mental Status/Objective Patient Orientation: Person, Place, Time, Situation Attachments: Oxygen, Telemetry ADL-Treatment Therapy Code Descriptions/Definitions Functional [place] Measure: 0=Not Assessed/NA 4=Minimal Assistance 1=Total Assistance 5=Supervision or Setup 2=Maximal Assistance 6=Modified [place] 3=Moderate Assistance 7=Complete IndependenceSCALE: Activities may be completed with or without assistive devices. 1-Uvrxqwbhhs-bfcvwbu completes the activity by him/herself with no assistance from a helper. 5-Set-up or Clean-up Assistance-helper sets up or cleans up; patient completes activity. [place] assists only prior to or following the activity. 4-Supervision or Touching Assistance-helper provides verbal cues and/or touching/steadying and/or contact guard assistance as patient completes activity. Assistance may be provided throughout the activity or intermittently. 3-Partial/Moderate Assistance-helper does LESS THAN HALF the effort. [place] lifts, holds or supports trunk or limbs, but provides less than half the effort. 2-Substantial/Maximal Assistance-helper does MORE THAN HALF the effort. [place] lifts or holds trunk or limbs and provides more than half the effort. 1-Ngpsktzag-vasynz does ALL the effort. Patient does none of the effort to complete the activity. Or, the assistance of 2 or more helpers is required for the patient to complete the activity. If activity was not attempted, code reason: 7-Patient Refused. 9-Not Applicable-not attempted and the patient did not perform the activity before the current illness, exacerbation or injury. 10-Not Attempted due to Environmental Limitations-(lack of equipment, weather restraints, etc.). 88-Not Attempted due to Medical Conditions or Safety Concerns. Oral Hygiene (QC): 4 (Pt completed oral hygiene with CGA standing at the sink.) Shower/Bathe Self (QC): 4 (Using grabbars, shower bench, pt completed shower while seated, stood up to cleanse andreina area and buttocks. Pt required supervion for safety. Used long handled sponge to cleanse feet and back.) Upper Body Dressing (QC): 4 (pt required supervion while completing upper body dressing.) Lower Body Dressing (QC): 4 (Pt required supervision for safety purposes when completing lower body dressing. Pt used sock aid to don socks.) Toileting Hygiene (QC): 7 (Pt declined using the toilet at this time.) Toilet Transfer (QC): 7 (Pt declined toileting.) Pt competed shower with supervision for safety purposes. OT offered AE to the pt. Pt declined stated "I would rather not use them." Pt utilized sock aid since she was having trouble getting socks on her feet. Other Treatment Pt ambulated from the room with walker, CGA required for safety. Pt ambulated to rehab common area. Pt required one brief rest break due to SOA. Pt. states that she does not need O2 saturation taken. Continues to wear 2 L 02. OT encou raged pt to breath through her nose, out her mouth, for deep breaths. SOA subsided, and pt ambulated back to her room with walker, with CGA. Pt seated at her recliner, call light/ phone to the reach. All need met. Education OT Patient Education: Energy conservation, Home exercise program, Modified ADL techniques, Progress toward Goal/Update tx plan, Purpose of tx/functional activities, Reviewed precautions, Rehab process, Safety issues, Use of adapted equipment Teaching Recipient: Patient Teaching Methods: Demonstration, Discussion Response to Teaching: Verbalize Understanding, Return Demonstration OT Short Term Goals Short Term Goals Grooming(FIM): 6 Upper Body Dressing(FIM): 4 (met) Lower Body Dressing(FIM): 3 (met) Additional Short Term Goals: 1-Demonstrate ADL Tasks, 2-Verbalize Understanding, 3-ImproveStrength/Diane 1=Demonstrate adherence to instructed precautions during ADL tasks. 2=Patient will verbalize/demonstrate understanding of assistive devices/modifications for ADL. 3=Patient will improve strength/tolerance for activity to enable patient to perform ADL's. OT Paving Plant Operator Goals Jail Goals Eating (QC): 6 (met) Oral Hygiene (QC): 6 Shower/Bathe Self (QC): 6 Upper Body Dressing (QC): 6 Lower Body Dressing (QC): 6 On/Off Footwear (QC): 6 Toileting Hygiene (QC): 6 Toilet/Commode Transfer (QC): 6 Additional Goals: 1-Demonstrate ADL Tasks, 2-Verbalize Understanding, 3- ImproveStrength/Diane 1=Demonstrate adherence to instructed precautions during ADL tasks. 2=Patient will verbalize/demonstrate understanding of assistive devices/modifications for ADL. 3=Patient will improve strength/tolerance for activity to enable patient to perform ADL's. OT Education/Plan Problem List/Assessment Assessment: Decreased Activ Tolerance, Impaired Funct Balance, Impaired I ADL's, Impaired Self-Care Skills Discharge Recommendations Plan/Recommendations: Continue POC Therapy Discharge Recommendati: Post Acute OT Equpiment Recommendations-D/C: Sock Aide Treatment Plan/Plan of Care Treatment,Training & Education: Yes Patient would benefit from OT for education, treatment and training to promote independence in ADL's, mobility, safety and/or upper extremity function for ADL's. Plan of Care: ADL Retraining, Caregiver Training, Functional Mobility, Group Exercise/Act as Ind, UE Funct Exercise/Act Treatment Duration: Jan 27, 2019 Frequency: At least 5 of 7 days/Wk (IRF) Estimated Hrs Per Day: 1.5 hours per day Agreement: Yes Rehab Potential: Good Time/GCodes Start Time: 10:00 Stop Time: 11:00 Total Time Billed (hr/min): 60 Billed Treatment Time 1, ADL X 45 minutes, FA X 15 Minutes DOV BADILLO OT Jan 18, 2019 11:56 POS
--- NOTE | 2019-01-18 14:45 | Therapy Group Daily Note ---
Therapy Daily Group Note Patient Education Topic Other List Below (memory, ARU description) Exercises LE Seated Exercise, UE Exercise Session Ratio (pt:therapist): 3:1 Goal of Session: Education on ARU Expectations, Memory Strategies, UE/LE Strengthing Goal Met for this Session: Yes Pt Benefit of Group: Contributions to Others, Increased Functional Strength, Improved Cognition, Recognition of Peers, Socialization Other/Notes Pt propelled self in w/c to ARU commons area for OT/PT group. Group consisted of introductions (name, place living, favorite article of clothing), memory education, memory tasks, peer led UE/LE seated exercises and ARU description. Pt introduced self appropriately then listened to peers' introduction. Pt acknowledged understanding of educational topics by giving personal strategies. Pt led UE/LE seated exercises by using card prompts and directing peers on correct technique and amount of reps. Pt was able to complete exercises for UE/LE. Pt was able to complete memory task appropriately. Start Time: 13:00 Stop Time: 14:15 Total Billed Treatment Time: 75 Total Billed Treatment 1-GRP BONG OZUNA Jan 18, 2019 14:45 POS
--- NOTE | 2019-01-18 15:07 | NUR ---
Weekly team conference Met with patient to discuss weekly team conference. Recommendation is to reevaluate patient next 01/25/19. Patient is currently requiring supplemental oxygen 24/7. PT and OT are working on energy conservation with functional mobility and ADLs, activity tolerance and management of oxygen tubing for safety. Patient continues to have complex medical issues requiring 24 hour physician and nurse oversight. Patient is in agreement of plan to reevaluate next Wednesday. Patient reported she has a sock aid at home but prefers the type of sock aid she is currently using. Discussed this with OT and they recommend a "hard sock aid." This worker will provide options with prices to patient prior to discharge. If patient continues to requires 24/7 supplemental oxygen, she will require a home oxygen study prior to discharge.
[2019-01-18 17:00] VITALS: BP 159/80
[2019-01-18] MEDS: RIVAROXABAN 15 MG TABLET (XARELTO) PO SCH (17:34)
[2019-01-18] MEDS: FENOFIBRATE 134 MG (LOFIBRA) CAPSULE PO SCH (21:13)
[2019-01-18] MEDS: PRIMIDONE 50 MG TAB (MYSOLINE) PO SCH (21:13)
[2019-01-18] MEDS: MAGNESIUM OXIDE (MAG-OX)400 MG TAB PO SCH (21:14)
[2019-01-19] MEDS: RT-ALBUTEROL/IPRATROPIUM 3 ML (DUONEB) VIAL INH SCH ×4 (02:05→21:40)
[2019-01-19 05:58] VITALS: BP 133/79
[2019-01-19] MEDS: inSUlin ASPART (NovoLOG) 1 UNIT/0.01 ML (CHARGE PER UNIT) SC SCH ×4 (06:34→20:22)
[2019-01-19] MEDS: predniSONE 20 MG TAB PO SCH (06:34)
--- NOTE | 2019-01-19 08:04 | Cardiology Progress Note ---
Subjective Date Seen by Provider: Jan 19, 2019 Time Seen by Provider: 08:02 Subjective/Events-last exam Patient sitting up in bed, no new complaints. Denies any chest pain. States dyspnea is improved. Review of Systems General: No Chills, No Night Sweats; Fatigue; No Malaise, No Appetite, No Other HEENT: No Head Aches, No Visual Changes, No Eye Pain, No Ear Pain, No Dysphasia, No Sinus Congestion, No Post Nasal Drip, No Sore Throat, No Other Pulmonary: Dyspnea; No Cough, No Pleuritic Chest Pain, No Other Cardiovascular: No: Chest Pain, Palpitations, Orthopnea, Paroxysmal Noc. Dyspnea, Edema, Lt Headedness, Other Objective-Cardiology Exam Last Set of Vital Signs Vital Signs 01/17/19 01/19/19 14:34 05:58 Temp 36.5 Pulse 97 Resp 18 B/P (MAP) 133/79 (97) Pulse Ox 98 O2 Delivery Nasal Cannula O2 Flow Rate 2.00 FiO2 28 Capillary Refill : Less Than 3 Seconds I&O Intake and Output 01/19/19 00:00 Intake Total 2600 ml Balance 2600 ml Intake Oral 2600 ml # Voids 6 # Bowel Movements 2 General: Alert, Oriented X3, Cooperative HEENT: Atraumatic, PERRLA Neck: Supple, No JVD, No Thyromegaly Lungs: Clear to Auscultation, Normal Air Movement Heart: Normal S1, Normal S2, No Murmurs, Other (irregular) Abdomen: Normal Bowel Sounds, Soft, No Tenderness, No Hepatosplenomegaly, No Masses Extremities: No Clubbing, No Cyanosis, Normal Pulses, No Tenderness/Swelling, Other (Mild edema) Skin: No Rashes, No Breakdown, No Significant Lesion Neuro: Normal Gait, Normal Speech, Strength at 5/5 X4 Ext, Normal Tone, Sensation Intact Psych/Mental Status: Mental Status NL, Mood NL Results Lab Laboratory Tests Test 01/18/19 09:30 01/18/19 14:22 01/18/19 20:55 01/19/19 05:48 Range/Units Glucometer 113 H 237 H 232 H 67 L 70-110 MG/DL Test 01/19/19 06:34 Range/Units Glucometer 101 70-110 MG/DL A/P-Cardiology Admission Diagnosis Paroxysmal atrial fibrillation Coronary artery disease Hypertension Hyperlipidemia Assessment/Plan Status post respiratory failure, better at this time, has history of severe COPD with multiple exacerbation. Acute renal failure, improved, continue to monitor. Paroxysmal atrial fibrillation, had history of cardioversion, currently in afib, heart rate is controlled. Tolerating medication well. Continue to monitor Sinus node dysfunction with history of severe bradycardia, monitor heart rate closely. Mild elevation in troponin level, no active chest pain, no acute EKG changes, probably due to hypoxemia and small vessel disease. Medical therapy is recommen ded continue to monitor Type II myocardial infarction secondary to hypoxemia, last cardiac catheterization as described below Coronary artery disease, history of stent placement 2 to the LAD. In August 2013 cardiac cath revealed patent stents to LAD, known to have Taxus 320 mm stent in the mid LAD, proximal to that there was a stent placed in 2011 which is 312 mm Ion stent. Both are patent with 40-50 percent in-stent restenosis. Secondary branch had 90 percent stenosis at the ostium. Small artery, not amendable to intervention. Another cardiac catheterization February 2015 showing patent stents in the proximal LAD with 50 percent stenosis beyond the stent and 50 percent stenosis at the midportion of the LAD small vessel disease distally, moderate 40-50 percent stenosis in the right coronary artery with multiple segment of the proximal, mid and distal portion. Cardiac catheterization done March 05, 2017 revealed severe LAD stenosis beyond the previously known stent 3.0. Successful primary stenting using 3.08 mm ALPINE expanded to 3.5 with excellent results, balloon for in-stent restenosis also was made. Most recent cardiac catheterization done March 09, 2018 revealed patent stent with small vessel disease, no intervention required. continue to monitor [id number] score of 4, yearly risk of stroke without oral anticoagulation is 4 percent. Maintained on Xarelto 15mg. Hypertension, continue on current medication monitor blood pressure Renal arterial duplex done July 2015 revealed proximal right renal artery not evaluated, other segments of the left renal artery demonstrated no evidence of significant stenosis, continue to monitor Hyperlipidemia, continue to monitor lipids Obstructive sleep apnea, using C Pap, using oxygen as needed Nonobstructive carotid artery stenosis per carotid duplex done in February 2018, continue to monitor. Diabetes mellitus-managed by primary care physician Chronic pain, followed and managed by primary care physician Obesity, BMI is 37, discussed diet and exercise for weight loss. Patient was seen and evaluated with Kaela, examination performed, management plan was discussed, agree with the current scribed note, I made few changes to the note using Italic font Patient is sitting in a chair, feeling better today Coronary artery disease, clinically stable, continue to monitor Paroxysmal atrial fibrillation, rate is controlled. Continue current medications Continue to monitor blood pressure Clinical Quality Measures DVT/VTE Risk/Contraindication: Risk Factor Score Per Nursin RFS Level Per Nursing on Admit: 4+=Very High KAELA CAPPS Jan 19, 2019 08:04 BOOM REED MD Jan 19, 2019 08:29 POS
[2019-01-19 08:55] VITALS: BP 131/81
--- NOTE | 2019-01-19 08:58 | Physical Therapy Daily Note ---
PT Daily Note-Current Subjective pt sitting EOB pre-tx. Pt agrees to PT this morning. Pt denies pain at this time. Pts pre-tx vitals: O2 97%, HR 74bpm Appearance Pt sitting in recliner with feet elevated post-tx. Pt with cell phone, call light, and tray table in reach with all needs met at this time. Pts post tx vitals O2-93%, HR 97bpm Mental Status Patient Orientation: Person, Place, Time, Situation Attachments: Oxygen (2L from high flow nasal canula), IV Transfers SCALE: Activities may be completed with or without assistive devices. 1-Agkzcergcy-ciuztfw completes the activity by him/herself with no assistance from a helper. 5-Set-up or Clean-up Assistance-helper sets up or cleans up; patient completes activity. [place] assists only prior to or following the activity. 4-Supervision or Touching Assistance-helper provides verbal cues and/or touching/steadying and/or contact guard assistance as patient completes activity. Assistance may be provided throughout the activity or intermittently. 3-Partial/Moderate Assistance-helper does LESS THAN HALF the effort. [place] lifts, holds or supports trunk or limbs, but provides less than half the effort. 2-Substantial/Maximal Assistance-helper does MORE THAN HALF the effort. [place] lifts or holds trunk or limbs and provides more than half the effort. 9-Wxjgrmvgv-knjigs does ALL the effort. Patient does none of the effort to complete the activity. Or, the assistance of 2 or more helpers is required for the patient to complete the activity. If activity was not attempted, code reason: 7-Patient Refused. 9-Not Applicable-not attempted and the patient did not perform the activity before the current illness, exacerbation or injury. 10-Not Attempted due to Environmental Limitations-(lack of equipment, weather restraints, etc.). 88-Not Attempted due to Medical Conditions or Safety Concerns. Sit to Stand (QC): 4 (SBA) Weight Bearing Right Lower Extremity: Right Weight Bearing/Tolerated Left Lower Extremity: Left Weight Bearing/Tolerated Gait Training Distance: 300',100' Walk 10 feet (QC): 6 Walk 50 ft with 2 Turns(QC): 4 (SBA) Walk 150 ft (QC): 4 (SBA) Gait Assistive Device: FWW Pt with improved stride length and myra this session. Pt verbalizes that she is trying to stay upright and inside the walker and keeping her back up straight. Wheelchair Training Does the Pt Use a Wheelchair?: No Balance Special Test Comments Pt stood with 2 feet on the airex pad for [id number]. Exercises Standing: Hip Abduction, Heel/toe raises, Mini squats Standing Reps: 30 (15reps 2sets) NuStep Minutes: 10 NuStep Workload: 6 (5 minutes on workload 5. 5 minutes on workload 6) Treatments Pt performed transfer training, skilled ambulation training, functional LE strengthening, and balance training this session. Assessment Current Status: Good Progress Pt continues to c/o R hip pain with short distance ambulation but continues to walk without further complaints. Pt victoriano increased ambulation distance and time on her feet. Pt was able to balance on A/E with split feet stance without any LOB needing to grab // bars for assist. Pt demonstrates increased used of hip strategy for balance as she fatigued. PT Short Term Goals Short Term Goals Time Frame: Jan 20, 2019 Gait Distance Comment: 150' Gait Assistive Device: FWW (SBA) PT Shelter Goals Shelter Goals PT Shelter Goals Time Frame: Feb 03, 2019 Sit to Lying (QC): 6 Lying-Sitting on Side/Bed(QC): 6 Sit to Stand (QC): 6 Roll Left to Right (QC): 6 Chair/Xmc-jr-Menwd Xfer(QC): 6 Car Transfer (QC): 6 Does the Patient Walk: Yes Distance: 300' Walk 10 feet (QC): 6 Walk 10ft-Uneven Surface(QC): 4 (SBA) Walk 50ft with 2 Turns (QC): 6 Walk 150 ft (QC): 6 Gait Assistive Device: FWW Does the Pt use WC or Scooter?: No # of Steps: 4 1 Step (curb) (QC): 4 (SBA) 4 Steps (QC): 4 (SBA) Picking up an Object (QC): 4 (SBA) PT Plan Problem List Problem List: Activity Tolerance, Functional Strength, Safety, Balance, Gait, Transfer, Bed Mobility Treatment/Plan Treatment Plan: Continue Plan of Care Treatment Plan: Bed Mobility, Education, Functional Activity Diane, Functional Strength, Group Therapy, Gait, Safety, Therapeutic Exercise, Transfers Treatment Duration: Feb 03, 2019 Frequency: At least 5 of 7 days/Wk (IRF) Estimated Hrs Per Day: 1.5 hours per day Patient and/or Family Agrees t: Yes Safety Risks/Education Patient Education: Gait Training, Transfer Techniques, Correct Positioning, Safety Issues Teaching Recipient: Patient Teaching Methods: Demonstration, Discussion Response to Teaching: Verbalize Understanding, Return Demonstration, Reinforcement Needed Time/GCodes Time In: 800 Time Out: 900 Total Billed Treatment Time: 60 Total Billed Treatment 1 visit FA 25' EX 20' GT 15' FLORINDA SMART PT Jan 19, 2019 08:58 POS
[2019-01-19] MEDS: PANTOPRAZOLE 40 MG (PROTONIX) TAB PO SCH (08:59)
[2019-01-19] MEDS: cloNIDine 0.1 MG (CATAPRES) TAB PO SCH ×2 (08:59→20:24)
[2019-01-19] MEDS: DRONEDARONE TABLET 400 MG TABLET PO SCH ×2 (08:59→20:24)
[2019-01-19] MEDS: GABAPENTIN 600 MG (NEURONTIN) TAB PO SCH ×2 (08:59→20:30)
[2019-01-19] MEDS: ISOSORBIDE MONONITRATE 60 MG (IMDUR) TAB PO SCH (08:59)
[2019-01-19] MEDS: SENNA W/DOCUSATE (SENOKOT S) TABLET PO SCH ×2 (09:00→20:32)
[2019-01-19] MEDS: DILTIAZEM 240 MG (CARDIZEM CD) CAP PO SCH (09:00)
[2019-01-19] MEDS: ASPIRIN E.C. 81 MG (ECOTRIN) TAB PO SCH (09:00)
[2019-01-19] MEDS: HYDROcodone/APAP 10 MG/325 MG (LORTAB) TAB PO PRN (09:09)
[2019-01-19] MEDS: LACTULOSE SYRUP 10GM/15ML (ENULOSE) 30ML UDC PO SCH ×2 (09:10→20:32)
[2019-01-19] MEDS: POLYETHYLENE GLYCOL 17 GM (MIRALAX) PACK PO SCH ×2 (09:11→20:32)
--- NOTE | 2019-01-19 09:48 | NUR ---
DR. MILLER RETURNED CALL REGARDING LASIX & TELEMETRY.
--- NOTE | 2019-01-19 09:58 | Progress Note ---
SHREYA [place] [facility] 01/19/19 0958: Progress Note CC: Shortness of Breath * Pt reports doing good yesterday in therapy and not getting short of breath * She would like to get off of her oxygen if possible or at least try it while she has the people around to monitor her oxygen levels * She states that yesterday she had a lot of swelling in her ankles from sitting in the chair too much * She states she does get dizzy sometimes during therapy * She has had hip pain that is worse when walking but better after she sits down * She denies any Headache, SOB, Cough, Chest Pain, Nausea, Vomiting, Abdominal p ain, Calf tenderness, or trouble urinating * She has been using her incentive spirometer and will continue to use it to improve her lung expansion SHANAE ESCOBEDO DO 01/20/19 0827: Supervisory-Addendum Brief Verification & Attestation Participated in pt care: history, MDM, physical Personally performed: exam, history, MDM, supervision of care Care discussed with: Medical Student Procedures: n/a Results interpretation: Verified all documentation Verification and Attestation of Medical Student E/M Service A medical student performed and documented this service in my presence. I reviewed and verified all information documented by the medical student and made modifications to such information, when appropriate. I personally performed the physical exam and medical decision making. Shanae Escobedo, Jan 20, 2019,08:27 STANISLAVSHREYA CORNEJO [facility] Jan 19, 2019 09:58 SHANAE GRACIA DO Jan 20, 2019 08:27 POS
--- NOTE | 2019-01-19 10:19 | Occupational Ther Daily Note ---
OT Current Status-Daily Note Subjective No c/o of pain. Pt reported that she is tired from physical therapy. Appearance Pt seated in recliner, nurse in the room. Pt agrees to therapy treatment. Mental Status/Objective Patient Orientation: Person, Place, Time, Situation Attachments: Oxygen, Telemetry ADL-Treatment Therapy Code Descriptions/Definitions Functional [place] Measure: 0=Not Assessed/NA 4=Minimal Assistance 1=Total Assistance 5=Supervision or Setup 2=Maximal Assistance 6=Modified [place] 3=Moderate Assistance 7=Complete IndependenceSCALE: Activities may be completed with or without assistive devices. 2-Pncclbpbgp-xduymmn completes the activity by him/herself with no assistance from a helper. 5-Set-up or Clean-up Assistance-helper sets up or cleans up; patient completes activity. [place] assists only prior to or following the activity. 4-Supervision or Touching Assistance-helper provides verbal cues and/or touching/steadying and/or contact guard assistance as patient completes activity. Assistance may be provided throughout the activity or intermittently. 3-Partial/Moderate Assistance-helper does LESS THAN HALF the effort. [place] lifts, holds or supports trunk or limbs, but provides less than half the effort. 2-Substantial/Maximal Assistance-helper does MORE THAN HALF the effort. [place] lifts or holds trunk or limbs and provides more than half the effort. 8-Tpntcraew-armfis does ALL the effort. Patient does none of the effort to complete the activity. Or, the assistance of 2 or more helpers is required for the patient to complete the activity. If activity was not attempted, code reason: 7-Patient Refused. 9-Not Applicable-not attempted and the patient did not perform the activity before the current illness, exacerbation or injury. 10-Not Attempted due to Environmental Limitations-(lack of equipment, weather restraints, etc.). 88-Not Attempted due to Medical Conditions or Safety Concerns. Oral Hygiene (QC): 4 (Standing at the sink. Pt required CGA to complete oral hygiene. ) Bathing Location: L Arm, R Arm, L Upper Leg, R Upper Leg, L Lower Leg (including foot), R Lower Leg (including foot), Chest, Abdomen, Buttocks, Perineal Area Shower/Bathe Self (QC): 4 (Hand held shower, long handle sponge and grab bars to stand to clease andreina area and buttocks. Pt required supervision to complete shower. Pt completed shower seated on the shower bench.) Upper Body Dressing (QC): 4 (Pt completed upper body dressing seated on a chair with set up but, required supervision.) Lower Body Dressing (QC): 4 (Pt. used sock aid to don socks. Pt required CGA to stand to hike pants and underwear over hips.) Toileting Hygiene (QC): 7 Toilet Transfer (QC): 7 Pt ambulated with walker to the shower and required CGA for safety purposes. Pt combed hair while seated with set up. Pt declined using toilet at this time. Other Treatment After the shower, pt ambulated with walker to the laundry room with CGA. Pt loaded the laundry in the washer with supervision. Pt later ambulated with walker to the gym CGA. Participated in armbike exercise for 9 minutes at min resistance to improve activity tolerance for functional tasks. Pt also participated in fine motor activity with reaching for improved gripping/pinching with functional tasks. Pt ambulated back to her room CGA for safety. Pt took one brief break. Pt. wearing 2 L02 throughout session. No SOA noted. Pt stopped at the refridgerator to retrieve her snack. Pt. required CGA for safety while pt was leaning to reach. Pt seated in recliner, phone/call light in reach. All needs met. Education OT Patient Education: Energy conservation, Exercise program, Modified ADL techniques, Progress toward Goal/Update tx plan, Purpose of tx/functional activities, Reviewed precautions, Rehab process, Safety issues, Transfer techniques, Use of adapted equipment Teaching Recipient: Patient Teaching Methods: Demonstration, Discussion Response to Teaching: Verbalize Understanding, Return Demonstration OT Short Term Goals Short Term Goals Grooming(FIM): 6 Upper Body Dressing(FIM): 4 (met) Lower Body Dressing(FIM): 3 (met) Additional Short Term Goals: 1-Demonstrate ADL Tasks, 2-Verbalize Understanding, 3-ImproveStrength/Diane 1=Demonstrate adherence to instructed precautions during ADL tasks. 2=Patient will verbalize/demonstrate understanding of assistive devices/m odifications for ADL. 3=Patient will improve strength/tolerance for activity to enable patient to perform ADL's. OT Usp Goals Steel Wheel Engraver Goals Eating (QC): 6 (met) Oral Hygiene (QC): 6 Shower/Bathe Self (QC): 6 Upper Body Dressing (QC): 6 Lower Body Dressing (QC): 6 On/Off Footwear (QC): 6 Toileting Hygiene (QC): 6 Toilet/Commode Transfer (QC): 6 Additional Goals: 1-Demonstrate ADL Tasks, 2-Verbalize Understanding, 3- ImproveStrength/Diane 1=Demonstrate adherence to instructed precautions during ADL tasks. 2=Patient will verbalize/demonstrate understanding of assistive devices/modifications for ADL. 3=Patient will improve strength/tolerance for activity to enable patient to perform ADL's. OT Education/Plan Problem List/Assessment Assessment: Decreased Activ Tolerance, Decreased UE Strength, Impaired Funct Balance, Impaired I ADL's, Impaired Self-Care Skills Discharge Recommendations Plan/Recommendations: Continue POC Therapy Discharge Recommendati: Post Acute OT Equpiment Recommendations-D/C: Sock Aide Treatment Plan/Plan of Care Treatment,Training & Education: Yes Patient would benefit from OT for education, treatment and training to promote independence in ADL's, mobility, safety and/or upper extremity function for ADL's. Plan of Care: ADL Retraining, Functional Mobility, Group Exercise/Act as Ind, UE Funct Exercise/Act Treatment Duration: Jan 27, 2019 Frequency: At least 5 of 7 days/Wk (IRF) Estimated Hrs Per Day: 1.5 hours per day Agreement: Yes Rehab Potential: Good Time/GCodes Start Time: 09:10 Stop Time: 10:40 Total Time Billed (hr/min): 90 Billed Treatment Time 1, ADL, 50 Minutes EX, 9 Minutes FA, 31 Minutes DOV BADILLO OT Jan 19, 2019 10:19 POS
[2019-01-19] MEDS: FUROSEMIDE 20 MG (LASIX) TAB PO SCH (12:10)
[2019-01-19] MEDS: KCL 10 MEQ TAB (MICRO K) PO SCH (12:11)
--- NOTE | 2019-01-19 13:32 | PM&R Progress Note ---
Subjective HPI/CC On Admission Date Seen by Provider: Jan 19, 2019 Time Seen by Provider: 09:00 CC: Debility Hospital course from med-surg: Pt was admitted to the ICU from the ER for shortness of breath and chest pain with deep breathing. She was started on IV steroids, antibiotics, and placed on Vapotherm with a BiPAP at night. She improved after a couple days in the ICU and was moved to med/surg after stopping Vapotherm and beginning 3L O2 nasal cannula while continuing BiPAP at night. She continued to improve reporting no trouble breathing while receiving DuoNeb treatments, nasal cannula O2, and BiPAP at night. She did feel extremely wobbly trying to stand and walking was very d ifficult requiring a lot of assistance from staff. She was recommended and evaluated for the Rehab unit to help with her recovery. She was discharged very willing and motivated to enter the Rehab unit. HPI: Patient is adjusting well to the IRF protocols. Very weak and tearful yesterday in PT when ambulating. Slow recovery predicted so I ordered /7 due to her severe weakness and difficulty coping. Patient's creatinine did increase to 2.75 and h/o CRI and DM nephropathy so will monitor that closely and we have DC abx that could likely be the source. Hyperglycemia from steroids continue and she has severe insulin resistance. Patient denies pain and no BM for several days and cath was DC so will work towards increasing strength and be able to DC home with . Subjective/Events-last exam Re-checking after one more week because she seems to be doing very well. Prednisone decreased to 20 today. Lasix is requested since she feels like she was swollen yesterday, will reach out to cardiology. Decreasing Levemir from 80 units at night to 50 due to blood sugar lows in the morning. Oxygen during the day time and BiPAP at night. Overall doing very well. Checked meds and labs Conferred with RN Reviewed therapy notes Review of Systems General: Fatigue Pulmonary: Dyspnea Objective Exam Vital Signs Vital Signs Date Time Temp Pulse Resp B/P (MAP) Pulse Ox O2 Delivery O2 Flow Rate FiO2 01/20/19 06:16 98 Nasal Cannula 2.00 01/20/19 05:20 36.2 94 18 125/70 (88) 01/17/19 14:34 28 Capillary Refill : Less Than 3 Seconds General Appearance: No Apparent Distress, WD/WN, Anxious, Chronically ill HEENT: PERRL/EOMI, Normal ENT Inspection, Pharynx Normal, Moist Mucous Membranes Neck: Full Range of Motion, Normal Inspection, Non Tender, Supple Respiratory: Chest Non Tender, Normal Breath Sounds, No Accessory Muscle Use, No Respiratory Distress, Crackles Cardiovascular: No Edema, No Gallop, No JVD, No Murmur, Irregularly Irregular Gastrointestinal: Normal Bowel Sounds, No Organomegaly, No Pulsatile Mass, Non Tender, Soft Back: Normal Inspection, No CVA Tenderness, No Vertebral Tenderness Extremity: Normal Capillary Refill, Normal Inspection, Normal Range of Motion, Non Tender, No Calf Tenderness, No Pedal Edema Neurologic/Psychiatric: Alert, Oriented x3, No Motor/Sensory Deficits (generalized all extremites), Normal Mood/Affect Skin: Normal Color, Warm/Dry Lymphatic: No Adenopathy Results/Procedures Lab Patient resulted labs reviewed. FIM Transfers Therapy Code Descriptions/Definitions Functional [place] Measure: 0=Not Assessed/NA 4=Minimal Assistance 1=Total Assistance 5=Supervision or Setup 2=Maximal Assistance 6=Modified [place] 3=Moderate Assistance 7=Complete IndependenceSCALE: Activities may be completed with or without assistive devices. 2-Zhayizewtt-pbgwavc completes the activity by him/herself with no assistance from a helper. 5-Set-up or Clean-up Assistance-helper sets up or cleans up; patient completes activity. [place] assists only prior to or following the activity. 4-Supervision or Touching Assistance-helper provides verbal cues and/or touching/steadying and/or contact guard assistance as patient completes activity. Assistance may be provided throughout the activity or intermittently. 3-Partial/Moderate Assistance-helper does LESS THAN HALF the effort. [place] lifts, holds or supports trunk or limbs, but provides less than half the effort. 2-Substantial/Maximal Assistance-helper does MORE THAN HALF the effort. [place] lifts or holds trunk or limbs and provides more than half the effort. 9-Frotdmwaj-ueamwk does ALL the effort. Patient does none of the effort to complete the activity. Or, the assistance of 2 or more helpers is required for the patient to complete the activity. If activity was not attempted, code reason: 7-Patient Refused. 9-Not Applicable-not attempted and the patient did not perform the activity before the current illness, exacerbation or injury. 10-Not Attempted due to Environmental Limitations-(lack of equipment, weather restraints, etc.). 88-Not Attempted due to Medical Conditions or Safety Concerns. Roll Left to Right (QC): 5 Sit to Lying (QC): 5 Sit to Stand (QC): 4 (SBA) Chair/Wrs-qo-Vmczg Xfer(QC): 5 Bed to/from Chair: 5 Car Transfer (QC): 4 (SBA) Gait Training Does the Patient Walk?: Yes Gait (FIM): 5 Distance (FIM): 3=150 ft Distance: 300',100' Walk 10 feet (QC): 6 Walk 50 ft with 2 Turns(QC): 4 (SBA) Walk 150 ft (QC): 4 (SBA) Walking 10ft/uneven surface-QC: 4 (CGA) Gait Persons Needed: 1 Gait Assistive Device: FWW Wheelchair Training Does the Pt Use a Wheelchair?: No Stair Training Stair Training: Handrails/: 2 handrails #of Steps: 12 1 Step (curb) (QC): 4 (CGA) 4 Steps (QC): 4 (CGA) 12 Steps (QC): 4 (CGA) Stairs: Pattern: Reciprocal Balance Picking up an Object (QC): 3 (modA. Pt was unstable but able to get to pen and back up with 1 hand on FWW) ADL-Treatment Eating (QC): 6 Oral Hygiene (QC): 4 (Standing at the sink. Pt required CGA to complete oral hygiene. ) Bathing Location: L Arm, R Arm, L Upper Leg, R Upper Leg, L Lower Leg (including foot), R Lower Leg (including foot), Chest, Abdomen, Buttocks, Perineal Area Shower/Bathe Self (QC): 4 (Hand held shower, long handle sponge and grab bars to stand to clease andreina area and buttocks. Pt required supervision to complete shower. Pt completed shower seated on the shower bench.) Upper Body Dressing (QC): 4 (Pt completed upper body dressing seated on a chair with set up but, required supervision.) Lower Body Dressing (QC): 4 (Pt. used sock aid to don socks. Pt required CGA to stand to hike pants and underwear over hips.) Toileting Hygiene (QC): 7 Toilet Transfer (QC): 7 Assessment/Plan Assessment and Plan Assess & Plan/Chief Complaint Assessment: Respiratory failure now improved off biPAP and Vapotherm Severe COPD Former smoker AF OAC ARF on CRI HTN Diabetes [id number] Plan: IRF protocols with 03/10 for expected slow recovery due to severe weakness Monitor oxygen and creatinine O2 Nebs Much improved Dr Luna consultation due to severity of her COPD Improved dramatically Monitor for low sugars Improved renal function now Wean off steroids (1) COPD (chronic obstructive pulmonary disease) (2) Debility (3) Hyperkalemia Status: Acute (4) Hyperphosphatemia Status: Acute (5) Respiratory failure Status: Acute (6) BiPAP (biphasic positive airway pressure) dependence (7) DVT prophylaxis Status: Acute (8) Elevated AST (SGOT) Status: Acute (9) Acute renal insufficiency Status: Acute (10) Diabetes mellitus, type 2 Status: Chronic (11) CKD (chronic kidney disease) Status: Chronic (12) A-fib (13) GERD (gastroesophageal reflux disease) Status: Chronic (14) HTN (hypertension) Status: Chronic (15) HLD (hyperlipidemia) Status: Chronic ZACK ESCOBEDO DO Jan 19, 2019 13:32 POS
[2019-01-19] MEDS: CYCLOBENZAPRINE 10 MG (FLEXERIL) TAB PO PRN (13:52)
--- NOTE | 2019-01-19 14:02 | Physical Therapy Daily Note ---
PT Daily Note-Current Subjective Patient is sitting in chair and agrees to PT at this time. Reported some SOA and dizziness during tx but felt fine at conclusion of treatment. Pain Numeric Pain Scale: 4 Location: Right Location Body Site: Hip Pain Description: Ache Mental Status Patient Orientation: Person, Place, Time, Situation Attachments: Oxygen (2L) Transfers SCALE: Activities may be completed with or without assistive devices. 4-Atgbkfajjg-mmdwbxs completes the activity by him/herself with no assistance from a helper. 5-Set-up or Clean-up Assistance-helper sets up or cleans up; patient completes activity. [place] assists only prior to or following the activity. 4-Supervision or Touching Assistance-helper provides verbal cues and/or touching/steadying and/or contact guard assistance as patient completes activity. Assistance may be provided throughout the activity or intermittently. 3-Partial/Moderate Assistance-helper does LESS THAN HALF the effort. [place] lifts, holds or supports trunk or limbs, but provides less than half the effort. 2-Substantial/Maximal Assistance-helper does MORE THAN HALF the effort. [place] lifts or holds trunk or limbs and provides more than half the effort. 4-Pstwzzmvz-tcnjgm does ALL the effort. Patient does none of the effort to complete the activity. Or, the assistance of 2 or more helpers is required for the patient to complete the activity. If activity was not attempted, code reason: 7-Patient Refused. 9-Not Applicable-not attempted and the patient did not perform the activity before the current illness, exacerbation or injury. 10-Not Attempted due to Environmental Limitations-(lack of equipment, weather restraints, etc.). 88-Not Attempted due to Medical Conditions or Safety Concerns. Transfers (B, C, W/C): 5 Roll Left to Right (QC): 5 Sit to Lying (QC): 5 Sit to Stand (QC): 5 Weight Bearing Right Lower Extremity: Right Weight Bearing/Tolerated Left Lower Extremity: Left Weight Bearing/Tolerated Gait Training Does the Patient Walk?: Yes Gait: 4 (SBA) Distance: 150' x2 Walk 10 feet (QC): 6 Walk 50 ft with 2 Turns(QC): 4 Walk 150 ft (QC): 4 Gait Assistive Device: FWW SOA with prolonged walker, required standing rest breaks during ambulation Stair Training Stair Training: Handrails/: 2 handrails #of Steps: 4 (x2) 1 Step (curb) (QC): 4 4 Steps (QC): 4 Stairs: Pattern: Step to Reciprocal pattern ascending, step to pattern descending Exercises Supine Ex: Heel Slides, Straight leg raise Supine Reps: 10 Seated Therapy Exercises: Sit to stand, Long arc quads, Hip flexion Seated Reps: 10 Standing: Hamstring curls, 3 way Ex=Flex, Abd, Ext, Marching, Mini squats Standing Reps: 10 Assessment Patient able to perform bed mobility for exercises without assistance. Patient tolerated all supine, seated, and standing exercises well with rest breaks in between each position change. Patient performed 2 sets of 4 stairs with two handrails but reported dizziness at conclusion. Dizziness passed with some rest. During standing exercises, O2 sats measured at 90% and was increased with deep, focused breaths. Patient was reminded to take deep breaths during exercises and ambulation. Patient returned to chair at conclusion of treatment. PT Short Term Goals Short Term Goals Time Frame: Jan 20, 2019 Gait Distance Comment: 150' Gait Assistive Device: FWW (SBA) PT Casual Shoe Inspector Goals Casual Shoe Inspector Goals PT Mcfp Goals Time Frame: Feb 03, 2019 Sit to Lying (QC): 6 Lying-Sitting on Side/Bed(QC): 6 Sit to Stand (QC): 6 Roll Left to Right (QC): 6 Chair/Jwa-lt-Swleh Xfer(QC): 6 Car Transfer (QC): 6 Does the Patient Walk: Yes Distance: 300' Walk 10 feet (QC): 6 Walk 10ft-Uneven Surface(QC): 4 (SBA) Walk 50ft with 2 Turns (QC): 6 Walk 150 ft (QC): 6 Gait Assistive Device: FWW Does the Pt use WC or Scooter?: No # of Steps: 4 1 Step (curb) (QC): 4 (SBA) 4 Steps (QC): 4 (SBA) Picking up an Object (QC): 4 (SBA) PT Plan Treatment/Plan Treatment Plan: Continue Plan of Care Treatment Plan: Bed Mobility, Education, Functional Activity Diane, Functional Strength, Group Therapy, Gait, Safety, Therapeutic Exercise, Transfers Treatment Duration: Feb 03, 2019 Frequency: At least 5 of 7 days/Wk (IRF) Estimated Hrs Per Day: 1.5 hours per day Patient and/or Family Agrees t: Yes Safety Risks/Education Patient Education: Gait Training, Transfer Techniques, Steps, Reviewed Precautions, Safety Issues Teaching Recipient: Patient Teaching Methods: Demonstration, Discussion Response to Teaching: Verbalize Understanding, Return Demonstration, Reinforcement Needed Time/GCodes Time In: 1315 Time Out: 1345 Total Billed Treatment Time: 30 Total Billed Treatment 1 visit EX 20min FA 10min CHACORTA ISBELL PTA Jan 19, 2019 14:02 POS
[2019-01-19] MEDS: RIVAROXABAN 15 MG TABLET (XARELTO) PO SCH (17:06)
[2019-01-19 17:09] VITALS: BP 155/74
--- NOTE | 2019-01-19 19:28 | NUR ---
bedside report received from KEISHA VIVAR, assume care of pt
[2019-01-19] MEDS: MAGNESIUM OXIDE (MAG-OX)400 MG TAB PO SCH (20:24)
[2019-01-19] MEDS: PRIMIDONE 50 MG TAB (MYSOLINE) PO SCH (20:24)
[2019-01-19] MEDS: FENOFIBRATE 134 MG (LOFIBRA) CAPSULE PO SCH (20:25)
--- NOTE | 2019-01-19 20:25 | NUR ---
refused miralax & Rosmery stated i had several stools today, Levemir 50 units given, DR ESCOBEDO decreased dose from 80 units to 50 units
[2019-01-20] MEDS: RT-ALBUTEROL/IPRATROPIUM 3 ML (DUONEB) VIAL INH SCH ×3 (02:00→20:37)
[2019-01-20 05:20] VITALS: BP 125/70
[2019-01-20] MEDS: inSUlin ASPART (NovoLOG) 1 UNIT/0.01 ML (CHARGE PER UNIT) SC SCH ×4 (06:00→19:46)
--- NOTE | 2019-01-20 06:27 | NUR ---
FSBS 50 GIVEN 4 OZ APPLE JUICE Addendum: 01/20/19 at 0737 by MEHRDAD SAAB RN TIME SHOULD BE [id number]
[2019-01-20] MEDS: predniSONE 20 MG TAB PO SCH (06:29)
[2019-01-20] MEDS: KCL 10 MEQ TAB (MICRO K) PO SCH (06:29)
--- NOTE | 2019-01-20 06:31 | NUR ---
FSBS 75
--- NOTE | 2019-01-20 07:12 | NUR ---
BEDSIDE REPORT GIVEN TO ELSIE VIVAR
[2019-01-20 08:00] VITALS: BP 126/67
--- NOTE | 2019-01-20 08:42 | NUR ---
Researched hard sock aid for patient. [facility] does not carry this item. [facility] in [place] carries a "metal sock donor." Printed off hard sock aid options found on [employer] and provided this list to patient. Discussed [employer] list with patient and OT. OT will review options with patient and patient stated she would order one from [employer].
[2019-01-20] MEDS: FUROSEMIDE 20 MG (LASIX) TAB PO SCH (09:18)
[2019-01-20] MEDS: DILTIAZEM 240 MG (CARDIZEM CD) CAP PO SCH (09:18)
[2019-01-20] MEDS: HYDROcodone/APAP 10 MG/325 MG (LORTAB) TAB PO PRN (09:18)
[2019-01-20] MEDS: SENNA W/DOCUSATE (SENOKOT S) TABLET PO SCH ×2 (09:18→22:10)
[2019-01-20] MEDS: PANTOPRAZOLE 40 MG (PROTONIX) TAB PO SCH (09:18)
[2019-01-20] MEDS: DRONEDARONE TABLET 400 MG TABLET PO SCH ×2 (09:18→22:08)
[2019-01-20] MEDS: GABAPENTIN 600 MG (NEURONTIN) TAB PO SCH ×2 (09:18→22:09)
[2019-01-20] MEDS: ISOSORBIDE MONONITRATE 60 MG (IMDUR) TAB PO SCH (09:18)
[2019-01-20] MEDS: ASPIRIN E.C. 81 MG (ECOTRIN) TAB PO SCH (09:18)
[2019-01-20 09:33] VITALS: BP 125/70
[2019-01-20] MEDS: LACTULOSE SYRUP 10GM/15ML (ENULOSE) 30ML UDC PO SCH ×2 (09:58→22:08)
[2019-01-20] MEDS: cloNIDine 0.1 MG (CATAPRES) TAB PO SCH ×2 (09:58→22:09)
[2019-01-20] MEDS: POLYETHYLENE GLYCOL 17 GM (MIRALAX) PACK PO SCH ×2 (09:59→22:11)
--- NOTE | 2019-01-20 09:59 | Physical Therapy Daily Note ---
PT Daily Note-Current Subjective pt in recliner pre-tx. Pt agrees to PT this session. Pt reports she is having pain in her R hip this morning rates it 10. RN aware and pain meds given during session. Pre-tx O2 98% [id number] Appearance pt in recliner post-tx. pt with room phone, call light, and tray table in reach with all needs met at this time. Post-tx O2 95% HR 85bpm Mental Status Patient Orientation: Person, Place, Time, Situation Attachments: Oxygen (2L from high flow nasal canula) Transfers SCALE: Activities may be completed with or without assistive devices. 1-Lydroiwigp-izfdtde completes the activity by him/herself with no assistance from a helper. 5-Set-up or Clean-up Assistance-helper sets up or cleans up; patient completes activity. [place] assists only prior to or following the activity. 4-Supervision or Touching Assistance-helper provides verbal cues and/or touching/steadying and/or contact guard assistance as patient completes activity. Assistance may be provided throughout the activity or intermittently. 3-Partial/Moderate Assistance-helper does LESS THAN HALF the effort. [place] lifts, holds or supports trunk or limbs, but provides less than half the effort. 2-Substantial/Maximal Assistance-helper does MORE THAN HALF the effort. [place] lifts or holds trunk or limbs and provides more than half the effort. 4-Ixqkjhort-jdetcz does ALL the effort. Patient does none of the effort to complete the activity. Or, the assistance of 2 or more helpers is required for the patient to complete the activity. If activity was not attempted, code reason: 7-Patient Refused. 9-Not Applicable-not attempted and the patient did not perform the activity before the current illness, exacerbation or injury. 10-Not Attempted due to Environmental Limitations-(lack of equipment, weather restraints, etc.). 88-Not Attempted due to Medical Conditions or Safety Concerns. Sit to Stand (QC): 5 Weight Bearing Right Lower Extremity: Right Weight Bearing/Tolerated Left Lower Extremity: Left Weight Bearing/Tolerated Gait Training Distance: 400',100' Walk 10 feet (QC): 6 Walk 50 ft with 2 Turns(QC): 5 Walk 150 ft (QC): 4 (SBA) Gait Assistive Device: FWW Pt demonstrates no foot drags this session and continues to ambulate with slow short choppy gait. Wheelchair Training Does the Pt Use a Wheelchair?: No Exercises Seated Therapy Exercises: Long arc quads Seated Reps: 40 (2sets 20 reps) Standing: Hip Abduction, Heel/toe raises, Mini squats, Retro gait (DB // bars x2) Standing Reps: 40 (2sets 20reps) NuStep Minutes: 8 NuStep Workload: 6 Treatments pt performed functional LE strengthening/endurance training, balance training, transfer training, skilled ambulation training, and education this date. Assessment Current Status: Good Progress pt maintained O2 sats above 92% for duration of this tx. Pt verbalizes that she is trying to fix things this PT has point out in the past (staying up tall, not leaning over, and picking up feet with steps) and she has improved all these behaviors. Pt continues to improve her control of O2 tubes as she would have to at home. Pt continues to be fatigued following structured therapy. PT Short Term Goals Short Term Goals Time Frame: Jan 20, 2019 Gait Distance Comment: 150' Gait Assistive Device: FWW (SBA) PT Detention Goals [employer] Associate Goals PT Detention Goals Time Frame: Feb 03, 2019 Sit to Lying (QC): 6 Lying-Sitting on Side/Bed(QC): 6 Sit to Stand (QC): 6 Roll Left to Right (QC): 6 Chair/Zfj-qs-Hbbnu Xfer(QC): 6 Car Transfer (QC): 6 Does the Patient Walk: Yes Distance: 300' Walk 10 feet (QC): 6 Walk 10ft-Uneven Surface(QC): 4 (SBA) Walk 50ft with 2 Turns (QC): 6 Walk 150 ft (QC): 6 Gait Assistive Device: FWW Does the Pt use WC or Scooter?: No # of Steps: 4 1 Step (curb) (QC): 4 (SBA) 4 Steps (QC): 4 (SBA) Picking up an Object (QC): 4 (SBA) PT Plan Problem List Problem List: Activity Tolerance, Functional Strength, Safety, Balance, Gait, Transfer, Bed Mobility Treatment/Plan Treatment Plan: Continue Plan of Care Treatment Plan: Bed Mobility, Education, Functional Activity Diane, Functional Strength, Group Therapy, Gait, Safety, Therapeutic Exercise, Transfers Treatment Duration: Feb 03, 2019 Frequency: At least 5 of 7 days/Wk (IRF) Estimated Hrs Per Day: 1.5 hours per day Patient and/or Family Agrees t: Yes Safety Risks/Education Patient Education: Gait Training, Transfer Techniques, Correct Positioning, Safety Issues Teaching Recipient: Patient Teaching Methods: Demonstration, Discussion Response to Teaching: Verbalize Understanding, Return Demonstration, Reinforcement Needed Time/GCodes Time In: 900 Time Out: 1000 Total Billed Treatment Time: 60 Total Billed Treatment 1 visit FA 30' GT 15' EX 15' FLORINDA SMART PT Jan 20, 2019 09:58 POS
--- NOTE | 2019-01-20 10:35 | Occupational Ther Daily Note ---
OT Current Status-Daily Note Subjective No c/o of pain. Pt laying in bed when OT entered the room. Pt agrees to therapy treatment. Mental Status/Objective Patient Orientation: Person, Place, Time, Situation Attachments: Oxygen ADL-Treatment Therapy Code Descriptions/Definitions Functional [place] Measure: 0=Not Assessed/NA 4=Minimal Assistance 1=Total Assistance 5=Supervision or Setup 2=Maximal Assistance 6=Modified [place] 3=Moderate Assistance 7=Complete IndependenceSCALE: Activities may be completed with or without assistive devices. 9-Lvosnsiuza-unrslct completes the activity by him/herself with no assistance from a helper. 5-Set-up or Clean-up Assistance-helper sets up or cleans up; patient completes activity. [place] assists only prior to or following the activity. 4-Supervision or Touching Assistance-helper provides verbal cues and/or touching/steadying and/or contact guard assistance as patient completes activit y. Assistance may be provided throughout the activity or intermittently. 3-Partial/Moderate Assistance-helper does LESS THAN HALF the effort. [place] lifts, holds or supports trunk or limbs, but provides less than half the effort. 2-Substantial/Maximal Assistance-helper does MORE THAN HALF the effort. [place] lifts or holds trunk or limbs and provides more than half the effort. 3-Wxazctihb-uwregp does ALL the effort. Patient does none of the effort to complete the activity. Or, the assistance of 2 or more helpers is required for the patient to complete the activity. If activity was not attempted, code reason: 7-Patient Refused. 9-Not Applicable-not attempted and the patient did not perform the activity before the current illness, exacerbation or injury. 10-Not Attempted due to Environmental Limitations-(lack of equipment, weather restraints, etc.). 88-Not Attempted due to Medical Conditions or Safety Concerns. Oral Hygiene (QC): 4 (Pt completed oral hygiene standing with walker at sink. Pt required CGA.) Bathing Location: L Arm, R Arm, L Upper Leg, R Upper Leg, L Lower Leg (inclu ding foot) (long handled sponge), R Lower Leg (including foot) (long handle sponge), Chest, Abdomen, Buttocks, Perineal Area Shower/Bathe Self (QC): 6 (Seated at the shower bench, pt completed shower independently using hand held shower, long handle sponge and grab bar. ) Upper Body Dressing (QC): 5 (Pt completed upper body dressing while seated on a chair. after set up.) Lower Body Dressing (QC): 4 (Pt offered AE but only utilized sock aid to don socks. Pt required CGA while standing to hike pants and underwear over hips.) Toileting Hygiene (QC): 7 Toilet Transfer (QC): 7 From supine to EOB, pt ambulated with walker, CGA required for safety. Pt combed hair while seated on a chair. Pt declined using the toilet reported she used earlier. Other Treatment After the shower pt ambulated with walker and required CGA to the laundry room. Pt required CGA while leaning to take clothes out of the dryer. Pt later ambulated back in her room with walker and required CGA for safety, sat EOB to fold cloths. Pt required SBA while hanging the clothes in the closet. Education OT Patient Education: Energy conservation, Home exercise program, Modified ADL techniques, Progress toward Goal/Update tx plan, Purpose of tx/functional activities, Reviewed precautions, Rehab process, Safety issues, Use of adapted equipment Teaching Recipient: Patient Teaching Methods: Demonstration Response to Teaching: Verbalize Understanding, Return Demonstration OT Short Term Goals Short Term Goals Grooming(FIM): 6 Upper Body Dressing(FIM): 4 (met) Lower Body Dressing(FIM): 3 (met) Additional Short Term Goals: 1-Demonstrate ADL Tasks, 2-Verbalize Understanding, 3-ImproveStrength/Diane 1=Demonstrate adherence to instructed precautions during ADL tasks. 2=Patient will verbalize/demonstrate understanding of assistive devices/modifications for ADL. 3=Patient will improve strength/tolerance for activity to enable patient to perform ADL's. OT Poultry Scalder Goals Mcc Goals Eating (QC): 6 (met) Oral Hygiene (QC): 6 Shower/Bathe Self (QC): 6 Upper Body Dressing (QC): 6 Lower Body Dressing (QC): 6 On/Off Footwear (QC): 6 Toileting Hygiene (QC): 6 Toilet/Commode Transfer (QC): 6 Additional Goals: 1-Demonstrate ADL Tasks, 2-Verbalize Understanding, 3-Improve Strength/Diane 1=Demonstrate adherence to instructed precautions during ADL tasks. 2=Patient will verbalize/demonstrate understanding of assistive devices/modifications for ADL. 3=Patient will improve strength/tolerance for activity to enable patient to pe rform ADL's. OT Education/Plan Problem List/Assessment Assessment: Decreased Activ Tolerance, Decreased UE Strength, Impaired I ADL's, Impaired Self-Care Skills Discharge Recommendations Plan/Recommendations: Continue POC Therapy Discharge Recommendati: Post Acute OT Equpiment Recommendations-D/C: Sock Aide Treatment Plan/Plan of Care Treatment,Training & Education: Yes Patient would benefit from OT for education, treatment and training to promote independence in ADL's, mobility, safety and/or upper extremity function for ADL's. Plan of Care: ADL Retraining, Functional Mobility, Group Exercise/Act as Ind, UE Funct Exercise/Act Treatment Duration: Jan 27, 2019 Frequency: At least 5 of 7 days/Wk (IRF) Estimated Hrs Per Day: 1.5 hours per day Agreement: Yes Rehab Potential: Good Time/GCodes Start Time: 08:00 Stop Time: 09:00 Total Time Billed (hr/min): 60 Billed Treatment Time 1, ADL X3 45 Minutes FA X1 15 Minutes BONG OZUNA Jan 20, 2019 10:35 POS
--- NOTE | 2019-01-20 10:46 | PM&R Progress Note ---
Subjective HPI/CC On Admission Date Seen by Provider: Jan 20, 2019 Time Seen by Provider: 08:45 CC: Debility Hospital course from med-surg: Pt was admitted to the ICU from the ER for shortness of breath and chest pain with deep breathing. She was started on IV steroids, antibiotics, and placed on Vapotherm with a BiPAP at night. She improved after a couple days in the ICU and was moved to med/surg after stopping Vapotherm and beginning 3L O2 nasal cannula while continuing BiPAP at night. She continued to improve reporting no trouble breathing while receiving DuoNeb treatments, nasal cannula O2, and BiPAP at night. She did feel extremely wobbly trying to stand and walking was very di fficult requiring a lot of assistance from staff. She was recommended and evaluated for the Rehab unit to help with her recovery. She was discharged very willing and motivated to enter the Rehab unit. HPI: Patient is adjusting well to the IRF protocols. Very weak and tearful yesterday in PT when ambulating. Slow recovery predicted so I ordered 03/10 due to her severe weakness and difficulty coping. Patient's creatinine did increase to 2.75 and h/o CRI and DM nephropathy so will monitor that closely and we have DC abx that could likely be the source. Hyperglycemia from steroids continue and she has severe insulin resistance. Patient denies pain and no BM for several days and cath was DC so will work towards increasing strength and be able to DC home with . Subjective/Events-last exam will bring her home CPAP machine since she was to start using that and she's been using the BiPAP here in the hospital Maintain on oxygen LUIZ hose will be given for m the edema Dizziness is improved Decreasing Levemir from 50-30 down from original 80 due to blood sugar of 50 this morning Prednisone of 20 mg will be decreased to 10 mg starting tomorrow Right hip pain will be addressed by Dr. Melendez consultation Overall doing very well. Checked meds and labs Conferred with RN Reviewed therapy notes Review of Systems General: Fatigue Pulmonary: Dyspnea Musculoskeletal: leg pain Objective Exam Vital Signs Vital Signs Date Time Temp Pulse Resp B/P (MAP) Pulse Ox O2 Delivery O2 Flow Rate FiO2 01/20/19 09:33 36.2 94 92 28 01/20/19 09:00 Nasal Cannula 2.00 01/20/19 05:20 18 125/70 (88) Capillary Refill : Less Than 3 Seconds General Appearance: No Apparent Distress, WD/WN, Anxious, Chronically ill HEENT: PERRL/EOMI, Normal ENT Inspection, Pharynx Normal, Moist Mucous Membranes Neck: Full Range of Motion, Normal Inspection, Non Tender, Supple Respiratory: Chest Non Tender, Normal Breath Sounds, No Accessory Muscle Use, No Respiratory Distress, Crackles Cardiovascular: No Edema, No Gallop, No JVD, No Murmur, Irregularly Irregular Gastrointestinal: Normal Bowel Sounds, No Organomegaly, No Pulsatile Mass, Non Tender, Soft Back: Normal Inspection, No CVA Tenderness, No Vertebral Tenderness Extremity: Normal Capillary Refill, Normal Inspection, Normal Range of Motion, Non Tender, No Calf Tenderness, No Pedal Edema Neurologic/Psychiatric: Alert, Oriented x3, No Motor/Sensory Deficits (generalized all extremites), Normal Mood/Affect Skin: Normal Color, Warm/Dry Lymphatic: No Adenopathy Results/Procedures Lab Patient resulted labs reviewed. FIM Transfers Therapy Code Descriptions/Definitions Functional [place] Measure: 0=Not Assessed/NA 4=Minimal Assistance 1=Total Assistance 5=Supervision or Setup 2=Maximal Assistance 6=Modified [place] 3=Moderate Assistance 7=Complete IndependenceSCALE: Activities may be completed with or without assistive devices. 7-Drayzajpoj-vtviivd completes the activity by him/herself with no assistance from a helper. 5-Set-up or Clean-up Assistance-helper sets up or cleans up; patient completes activity. [place] assists only prior to or following the activity. 4-Supervision or Touching Assistance-helper provides verbal cues and/or touching/steadying and/or contact guard assistance as patient completes activity. Assistance may be provided throughout the activity or intermittently. 3-Partial/Moderate Assistance-helper does LESS THAN HALF the effort. [place] lifts, holds or supports trunk or limbs, but provides less than half the effort. 2-Substantial/Maximal Assistance-helper does MORE THAN HALF the effort. [place] lifts or holds trunk or limbs and provides more than half the effort. 1-Rrmvrlahu-geitgb does ALL the effort. Patient does none of the effort to complete the activity. Or, the assistance of 2 or more helpers is required for the patient to complete the activity. If activity was not attempted, code reason: 7-Patient Refused. 9-Not Applicable-not attempted and the patient did not perform the activity before the current illness, exacerbation or injury. 10-Not Attempted due to Environmental Limitations-(lack of equipment, weather restraints, etc.). 88-Not Attempted due to Medical Conditions or Safety Concerns. Transfers (B, C, W/C) (FIM): 5 Roll Left to Right (QC): 5 Sit to Lying (QC): 5 Sit to Stand (QC): 5 Chair/Mtf-as-Uxyke Xfer(QC): 5 Bed to/from Chair: 5 Car Transfer (QC): 4 (SBA) Gait Training Does the Patient Walk?: Yes Gait (FIM): 4 (SBA) Distance (FIM): 3=150 ft Distance: 400',100' Walk 10 feet (QC): 6 Walk 50 ft with 2 Turns(QC): 5 Walk 150 ft (QC): 4 (SBA) Walking 10ft/uneven surface-QC: 4 (CGA) Gait Persons Needed: 1 Gait Assistive Device: FWW Wheelchair Training Does the Pt Use a Wheelchair?: No Stair Training Stair Training: Handrails/: 2 handrails #of Steps: 4 (x2) 1 Step (curb) (QC): 4 4 Steps (QC): 4 12 Steps (QC): 4 (CGA) Stairs: Pattern: Step to Balance Picking up an Object (QC): 3 (modA. Pt was unstable but able to get to pen and back up with 1 hand on FWW) ADL-Treatment Eating (QC): 6 Oral Hygiene (QC): 4 (Standing at the sink. Pt required CGA to complete oral hygiene. ) Bathing Location: L Arm, R Arm, L Upper Leg, R Upper Leg, L Lower Leg (including foot), R Lower Leg (including foot), Chest, Abdomen, Buttocks, Perineal Area Shower/Bathe Self (QC): 4 (Hand held shower, long handle sponge and grab bars to stand to clease andreina area and buttocks. Pt required supervision to complete shower. Pt completed shower seated on the shower bench.) Upper Body Dressing (QC): 4 (Pt completed upper body dressing seated on a chair with set up but, required supervision.) Lower Body Dressing (QC): 4 (Pt. used sock aid to don socks. Pt required CGA to stand to hike pants and underwear over hips.) Toileting Hygiene (QC): 7 Toilet Transfer (QC): 7 Assessment/Plan Assessment and Plan Assess & Plan/Chief Complaint Assessment: Respiratory failure now improved off biPAP and Vapotherm Severe COPD Former smoker AF OAC ARF on CRI HTN Diabetes rvb-gl-xugzjbd now improved since titrating down steroids Right hip pain consulting Dr. Melendez Plan: IRF protocols with 03/10 for expected slow recovery due to severe weakness Monitor oxygen and creatinine O2 Nebs Much improved Dr Luna consultation due to severity of her COPD Improved dramatically Monitor for low sugars Improved renal function now Wean off steroids Decrease long-acting insulin due to hypoglycemia in the morning Appreciate Dr. Melendez input for right hip pain (1) COPD (chronic obstructive pulmonary disease) (2) Debility (3) Hyperkalemia Status: Acute (4) Hyperphosphatemia Status: Acute (5) Respiratory failure Status: Acute (6) BiPAP (biphasic positive airway pressure) dependence (7) DVT prophylaxis Status: Acute (8) Elevated AST (SGOT) Status: Acute (9) Acute renal insufficiency Status: Acute (10) Diabetes mellitus, type 2 Status: Chronic (11) CKD (chronic kidney disease) Status: Chronic (12) A-fib (13) GERD (gastroesophageal reflux disease) Status: Chronic (14) HTN (hypertension) Status: Chronic (15) HLD (hyperlipidemia) Status: Chronic ZACK ESCOBEDO DO Jan 20, 2019 10:46 POS
--- NOTE | 2019-01-20 13:30 | NUR ---
DR. REECE HERE TO SEE PATIENT. RIGHT HIP XRAY HAS BEEN DONE. STATES HAS HAD RIGHT HIP PAIN FOR 2-3 MONTHS. STATES DIZZY EARLIER, BUT FEELS DIZZINESS HAS IMPROVED. LUIZ HOSE APPLIED DUE TO LOWER EXTREMITY EDEMA. RIGHT FOOT > SWELLING THAN LEFT. SCD ENCOURAGED AT HS. DR. FRANCISCO HAS OKAYED THAT PATIENT CHANGE TO OWN CPAP INSTEAD OF USING BIPAP. DR. ESCOBEDO WAS INFORMED OF HYPOGLYCEMIA THIS AM AND LEVEMIR DOSE WAS DECREASED AGAIN TODAY.
--- NOTE | 2019-01-20 13:54 | Consultation - Ortho ---
Consult - Ortho Subjective Date of Exam 01/20/19 Chief Complaint Right hip pain HPI/Events since last exam This is Mrs Rdz is a 63-year-old white female has been complaining of right hip pain for approximately 3 months. She denies any specific injury but does remember falling but did not landed on the right side at approximately the same time as the hip pain started. She denies any radiation of pain, numbness or tingling. She notes when she walks the pain in creases and when she rests and sits the pain goes away. She also notes when she walks with a shopping cart, bending overdoes decrease the pain for laminate pain. She has had back surgery about 20 years ago. She stated she had to herniated disks and underwent spinal fusion in [place]. She had no leg pain at that time. She has no left leg pain at this time. She is ambulating with a walker. She notes some generalized weakness in the right leg compared to the left. Medical, Surgical History Reviewed and no additions or changes Social History Reviewed and no additions or changes Family History Reviewed and no additions or changes Review of Systems Reviewed and no additions or changes Allergies: Coded Allergies: morphine (Verified Adverse Reaction, Severe, hallucination, 07/12/18) Home Meds Reported Medications Rivaroxaban (Xarelto) 20 Mg Tablet, 20 MG PO DAILY, TAB 01/10/19 Insulin Detemir (Levemir Flextouch) 100 Unit/1 Ml Insuln.pen, 80 UNITS SC HS, EA 01/10/19 Metformin HCl (Metformin HCl ER) 500 Mg Tab.er.24h, 500 MG PO BID, TAB 01/10/19 Amlodipine Besylate (Amlodipine Besylate) 10 Mg Tablet, 10 MG PO DAILY, TAB 01/10/19 Dulaglutide (Trulicity) 0.75 Mg/0.5 Ml Pen.injctr, 0.75 MG SC [place], EA 01/10/19 Clonidine HCl (Clonidine HCl) 0.1 Mg Tablet, 0.1 MG PO BID, TAB 01/10/19 Dronedarone HCl (Multaq) 400 Mg Tablet, 400 MG PO BID, TAB 01/10/19 Lisinopril (Lisinopril) 20 Mg Tablet, 20 MG PO BID, TAB 01/10/19 Hydralazine HCl (Hydralazine HCl) 10 Mg Tablet, 10 MG PO TID, TAB 01/10/19 Primidone (Mysoline) 50 Mg Tablet, 50 MG PO HS, TAB 07/22/18 Sennosides/Docusate Sodium (Stool Softener-Stimulant Lax) 1 Each Tablet, 1 TAB PO DAILY PRN for CONSTIPATION-6TH LINE, TAB 07/22/18 [place]-3/Dha/Epa/Fish Oil (Fish Oil 1,000 mg Softgel) 1 Each Capsule, 1000 MG PO HS, CAP 03/09/18 Multivitamin-Min/Iron/FA/Vit K (Multi-Day Plus Minerals Tablet) 1 Each Tablet, 1 TAB PO DAILY, TAB 03/09/18 Cyclobenzaprine HCl (Cyclobenzaprine HCl) 10 Mg Tablet, 20 MG PO BID PRN for MUSCLE SPASMS, TAB 03/09/18 Atorvastatin Calcium (Atorvastatin Calcium) 40 Mg Tablet, 40 MG PO HS, TAB 03/09/18 Hydrocodone/Acetaminophen (Hydrocodon-Acetaminophn 10-325) 1 Each Tablet, 1 TAB PO TID PRN for PAIN-MODERATE, TAB 03/05/17 Magnesium Oxide (Magnesium) 400 Mg Tablet, 400 MG PO HS, TAB 03/05/17 Potassium Gluconate (Potassium) 99 Mg Tablet, 99 MG PO DAILY, TAB 03/05/17 Aspirin (Aspirin EC) 81 Mg Tablet.dr, 81 MG PO DAILY, TAB 03/05/17 Gabapentin (Gabapentin) 600 Mg Tablet, 600 MG PO TID, TAB 03/05/17 Insulin Aspart (Novolog Flexpen) 300 Units/3 Ml Solution, SQ TIDAC for SLIDING SCALE, EA USES 1 UNIT FOR EVERY 2 POINTS OVER 100 BS 03/05/17 Pantoprazole Sodium (Pantoprazole Sodium) 40 Mg Tablet.dr, 40 MG PO DAILY, TAB 03/05/17 Isosorbide Mononitrate (Isosorbide Mononitrate ER) 60 Mg Tab, 60 MG PO DAILY, TAB 03/05/17 Fenofibrate,Micronized (Fenofibrate) 134 Mg Capsule, 134 MG PO HS, CAP 03/05/17 Furosemide (Furosemide) 40 Mg Tablet, 40 MG PO DAILY, TAB 03/05/17 Cinnamon Bark (Cinnamon) 500 Mg Capsule, 500 MG PO BID, CAP 03/13/15 Objective Exam Constitutional: [] HEENT: [] Neck: [] Cardiovascular: [] Respiratory: [] Gastrointestinal: [] Genitourinary: [] Skin: [] Back/Spine: [] No back pain with palpation but she does have some mild pain over the right sciatic notch. No pain over the right SI joint No pain over the mid lower back or left SI joint. No pain over the left sciatic notch Extremities: [] Pain over the right greater trochanter. No right anterior hip pain. Pain over the right side sciatic notch. With right hip flexion she has pain over the right sciatic notch and posterior aspect of the greater trochanter. No pain with internal and external rotation of the hip. Negative straight leg raise. No weakness on dorsiflexion or plantarflexion of the foot and ankle or dorsiflexion of the great toe bilateral. Equal sensation in the lower legs. Equal pulses. Neurologic: [] Psychiatric: [] Hematologic/lymphatic/immunologic: [] Vital Signs Vital Signs Date Time Temp Pulse Resp B/P (MAP) Pulse Ox O2 Delivery O2 Flow Rate FiO2 01/20/19 09:33 36.2 94 92 28 01/20/19 09:00 Nasal Cannula 2.00 01/20/19 06:16 98 Nasal Cannula 2.00 01/20/19 05:20 36.2 94 18 125/70 (88) 95 NIV Bilevel 2.00 01/20/19 02:00 87 12 97 25.00 01/19/19 23:50 82 26 96 25.00 01/19/19 21:40 94 Nasal Cannula 2.00 01/19/19 20:35 Nasal Cannula 2.00 01/19/19 17:09 36.4 88 22 155/74 (101) 96 Nasal Cannula 2.00 01/19/19 14:46 97 Nasal Cannula 2.00 I & O 01/20/19 07:00 Intake Total 1875 ml Balance 1875 ml Lab Results Laboratory Tests 01/19/19 16:32: Glucometer 115H 01/19/19 20:11: Glucometer 199H 01/20/19 05:56: Glucometer 50*L 01/20/19 06:27: Glucometer 75 01/20/19 10:04: Glucometer 219H Imaging X-ray of the right hip show some mild degenerative changes with joint space narrowing and acetabular spurring Assessment and Plan Assessment Right hip pain probably secondary to arthritis of the right hip as well as radicular from her back Problem List Trochanteric bursitis right hip Osteoarthritis right hip Probable degenerative disc disease/spinal stenosis status post 2 level fusion lumbar spine with radiculopathy to right hip Plan X-rays of the lumbar spine and possible MRI depending on findings Final Diagonsis Osteoarthritis right hip Trochanteric bursitis right hip Degenerative disc disease/spinal stenosis lumbar spine status post 2 level lumbar fusion Radiculopathy right hip Level of the visit: Level 3 ROGELIO REECE MD Jan 20, 2019 13:54 POS
--- NOTE | 2019-01-20 14:30 | NUR ---
DOWNSTAIRS FOR BACK X RAYS.
--- NOTE | 2019-01-20 14:51 | Diagnostic Imaging Report ---
INDICATION: Right hip pain. TIME OF EXAM: 1:10 p.m. Two views of the right hip were obtained. Femoroacetabular alignment is normal. Femoral head and neck are intact. No fractures are seen. Right-sided rami are intact. IMPRESSION: No acute bony abnormality is detected. Dictated by: Dictated on workstation # [id number]
--- NOTE | 2019-01-20 14:53 | Diagnostic Imaging Report ---
INDICATION: Back pain. TIME OF EXAM: 2:32 p.m. Multiple views of the lumbar spine were obtained. FINDINGS: Study is limited due to severe demineralization. Curvature and alignment of the lumbar spine is normal. Vertebral body heights are maintained. No acute compression fracture is seen. There is multilevel degenerative disc disease with variable disc space narrowing and marginal spurring. There is lower lumbar facet arthropathy. Aorta is heavily calcified. IMPRESSION: Lumbar spondylosis. No acute bony abnormality is detected. Dictated by: Dictated on workstation # [id number]
--- NOTE | 2019-01-20 15:03 | Therapy Group Daily Note ---
Therapy Daily Group Note Patient Education Topic Home Safety, Other List Below (handwashing) Exercises LE Seated Exercise, UE Exercise Session Ratio (pt:therapist): 7:2 Goal of Session: Home Safety Strategies, UE/LE Strengthing Goal Met for this Session: Yes Pt Benefit of Group: Contributions to Others, F/U Use of Strategies @Home, Increased Functional Safety, Increased Functional Strength, Improved Cognition, Recognition of Peers, Socialization Other/Notes Pt ambulated to [facility] for OT/PT group. Group consisted of introductions (name, place born, favorite fall food), socialization, UE/LE seated exercises, educational topics of hand washing and home safety. Pt able to introduce self appropriately and actively listened to peers. Pt was able to complete exercises and tolerated well. Pt acknowledge understanding of educational topics by giving own personal strategies and stories pertaining to topic. After therapy, pt lying in bed with call light/phone in reach. All needs met in room. Start Time: 13:00 Stop Time: 14:10 Total Billed Treatment Time: 70 Total Billed Treatment 1-GRP BONG OZUNA Jan 20, 2019 15:03 POS
[2019-01-20] MEDS: RIVAROXABAN 15 MG TABLET (XARELTO) PO SCH (16:52)
[2019-01-20 18:00] VITALS: BP 115/73
[2019-01-20] MEDS: FENOFIBRATE 134 MG (LOFIBRA) CAPSULE PO SCH (22:09)
[2019-01-20] MEDS: MAGNESIUM OXIDE (MAG-OX)400 MG TAB PO SCH (22:09)
[2019-01-20] MEDS: PRIMIDONE 50 MG TAB (MYSOLINE) PO SCH (22:10)
[2019-01-21 06:00] VITALS: BP 120/76
[2019-01-21] MEDS: RT-ALBUTEROL/IPRATROPIUM 3 ML (DUONEB) VIAL INH SCH ×2 (06:16→18:58)
[2019-01-21] MEDS ORDERED: predniSONE 10 MG TAB PO SCH (07:00)
[2019-01-21] MEDS: KCL 10 MEQ TAB (MICRO K) PO SCH (08:03)
[2019-01-21] MEDS: GABAPENTIN 600 MG (NEURONTIN) TAB PO SCH ×2 (09:02→20:02)
[2019-01-21] MEDS: LACTULOSE SYRUP 10GM/15ML (ENULOSE) 30ML UDC PO SCH ×2 (09:03→20:04)
[2019-01-21] MEDS: PANTOPRAZOLE 40 MG (PROTONIX) TAB PO SCH (09:05)
[2019-01-21] MEDS: FUROSEMIDE 20 MG (LASIX) TAB PO SCH (09:05)
[2019-01-21] MEDS: DRONEDARONE TABLET 400 MG TABLET PO SCH ×2 (09:05→20:02)
[2019-01-21] MEDS: SENNA W/DOCUSATE (SENOKOT S) TABLET PO SCH ×2 (09:05→20:05)
[2019-01-21] MEDS: ISOSORBIDE MONONITRATE 60 MG (IMDUR) TAB PO SCH (09:05)
[2019-01-21] MEDS: ASPIRIN E.C. 81 MG (ECOTRIN) TAB PO SCH (09:05)
[2019-01-21] MEDS: cloNIDine 0.1 MG (CATAPRES) TAB PO SCH ×2 (09:06→20:02)
[2019-01-21] MEDS: DILTIAZEM 240 MG (CARDIZEM CD) CAP PO SCH (09:06)
--- NOTE | 2019-01-21 09:22 | Progress Note - Ortho ---
Progress Note Subjective Date of Exam 01/21/19 Chief Complaint Right hip pain HPI/Events since last exam Right hip pain unchanged. Had x-rays yesterday afternoon Review of Systems No changes Allergies: Coded Allergies: morphine (Verified Adverse Reaction, Severe, hallucination, 07/12/18) Home Meds Reported Medications Rivaroxaban (Xarelto) 20 Mg Tablet, 20 MG PO DAILY, TAB 01/10/19 Insulin Detemir (Levemir Flextouch) 100 Unit/1 Ml Insuln.pen, 80 UNITS SC HS, EA 01/10/19 Metformin HCl (Metformin HCl ER) 500 Mg Tab.er.24h, 500 MG PO BID, TAB 01/10/19 Amlodipine Besylate (Amlodipine Besylate) 10 Mg Tablet, 10 MG PO DAILY, TAB 01/10/19 Dulaglutide (Trulicity) 0.75 Mg/0.5 Ml Pen.injctr, 0.75 MG SC [place], EA 01/10/19 Clonidine HCl (Clonidine HCl) 0.1 Mg Tablet, 0.1 MG PO BID, TAB 01/10/19 Dronedarone HCl (Multaq) 400 Mg Tablet, 400 MG PO BID, TAB 01/10/19 Lisinopril (Lisinopril) 20 Mg Tablet, 20 MG PO BID, TAB 01/10/19 Hydralazine HCl (Hydralazine HCl) 10 Mg Tablet, 10 MG PO TID, TAB 01/10/19 Primidone (Mysoline) 50 Mg Tablet, 50 MG PO HS, TAB 07/22/18 Sennosides/Docusate Sodium (Stool Softener-Stimulant Lax) 1 Each Tablet, 1 TAB PO DAILY PRN for CONSTIPATION-6TH LINE, TAB 07/22/18 [place]-3/Dha/Epa/Fish Oil (Fish Oil 1,000 mg Softgel) 1 Each Capsule, 1000 MG PO HS, CAP 03/09/18 Multivitamin-Min/Iron/FA/Vit K (Multi-Day Plus Minerals Tablet) 1 Each Tablet, 1 TAB PO DAILY, TAB 03/09/18 Cyclobenzaprine HCl (Cyclobenzaprine HCl) 10 Mg Tablet, 20 MG PO BID PRN for MUSCLE SPASMS, TAB 03/09/18 Atorvastatin Calcium (Atorvastatin Calcium) 40 Mg Tablet, 40 MG PO HS, TAB 03/09/18 Hydrocodone/Acetaminophen (Hydrocodon-Acetaminophn 10-325) 1 Each Tablet, 1 TAB PO TID PRN for PAIN-MODERATE, TAB 03/05/17 Magnesium Oxide (Magnesium) 400 Mg Tablet, 400 MG PO HS, TAB 03/05/17 Potassium Gluconate (Potassium) 99 Mg Tablet, 99 MG PO DAILY, TAB 03/05/17 Aspirin (Aspirin EC) 81 Mg Tablet.dr, 81 MG PO DAILY, TAB 03/05/17 Gabapentin (Gabapentin) 600 Mg Tablet, 600 MG PO TID, TAB 03/05/17 Insulin Aspart (Novolog Flexpen) 300 Units/3 Ml Solution, SQ TIDAC for SLIDING SCALE, EA USES 1 UNIT FOR EVERY 2 POINTS OVER 100 BS 03/05/17 Pantoprazole Sodium (Pantoprazole Sodium) 40 Mg Tablet.dr, 40 MG PO DAILY, TAB 03/05/17 Isosorbide Mononitrate (Isosorbide Mononitrate ER) 60 Mg Tab, 60 MG PO DAILY, TAB 03/05/17 Fenofibrate,Micronized (Fenofibrate) 134 Mg Capsule, 134 MG PO HS, CAP 03/05/17 Furosemide (Furosemide) 40 Mg Tablet, 40 MG PO DAILY, TAB 03/05/17 Cinnamon Bark (Cinnamon) 500 Mg Capsule, 500 MG PO BID, CAP 03/13/15 Objective Exam Constitutional: [] HEENT: [] Neck: [] Cardiovascular: [] Respiratory: [] Gastrointestinal: [] Genitourinary: [] Skin: [] Back/Spine: [] Extremities: [] Continued right hip pain unchanged Neurologic: [] Psychiatric: [] Hematologic/lymphatic/immunologic: [] Vital Signs Vital Signs Date Time Temp Pulse Resp B/P (MAP) Pulse Ox O2 Delivery O2 Flow Rate FiO2 01/21/19 06:16 98 Nasal Cannula 2.00 01/21/19 06:00 36.6 83 20 120/76 (91) 95 Nasal Cannula 2.00 01/20/19 20:37 96 Nasal Cannula 2.00 01/20/19 20:05 96 Nasal Cannula 2.00 01/20/19 18:00 36.6 75 18 115/73 (87) 97 Nasal Cannula 2.00 01/20/19 09:33 36.2 94 92 28 I & O 01/21/19 07:00 Intake Total 2040 ml Balance 2040 ml Lab Results Laboratory Tests 01/20/19 10:04: Glucometer 219H 01/20/19 14:54: Glucometer 90 01/20/19 19:34: Glucometer 310H 01/21/19 05:41: Glucometer 56*L 01/21/19 06:25: Glucometer 108 01/21/19 08:56: Glucometer 247H Assessment and Plan Assessment Continued right hip pain Problem List Unchanged Plan I reviewed the lumbosacral spine x-rays. She has degenerative disc disease, facet changes and probable stenosis and foraminal narrowing. I talked her about doing an MRI and she would like to proceed. He had think some of her pain is coming from her back and some from her hip Final Diagonsis Osteoarthritis right hip Degenerative disc disease lumbosacral spine with probable spinal and foraminal stenosis Level of the visit: Level 3 Clinical Quality Measures DVT/VTE Risk/Contraindication: Risk Factor Score Per Nursin RFS Level Per Nursing on Admit: 4+=Very High ROGELIO REECE MD Jan 21, 2019 09:22 POS
[2019-01-21] MEDS: inSUlin ASPART (NovoLOG) 1 UNIT/0.01 ML (CHARGE PER UNIT) SC SCH ×4 (09:50→20:00)
[2019-01-21] MEDS: POLYETHYLENE GLYCOL 17 GM (MIRALAX) PACK PO SCH ×2 (09:52→20:04)
--- NOTE | 2019-01-21 11:47 | PM&R Progress Note ---
Subjective HPI/CC On Admission Date Seen by Provider: Jan 21, 2019 Time Seen by Provider: 11:30 CC: Debility Hospital course from med-surg: Pt was admitted to the ICU from the ER for shortness of breath and chest pain with deep breathing. She was started on IV steroids, antibiotics, and placed on Vapotherm with a BiPAP at night. She improved after a couple days in the ICU and was moved to med/surg after stopping Vapotherm and beginning 3L O2 nasal cannula while continuing BiPAP at night. She continued to improve reporting no trouble breathing while receiving DuoNeb treatments, nasal cannula O2, and BiPAP at night. She did feel extremely wobbly trying to stand and walking was very di fficult requiring a lot of assistance from staff. She was recommended and evaluated for the Rehab unit to help with her recovery. She was discharged very willing and motivated to enter the Rehab unit. HPI: Patient is adjusting well to the IRF protocols. Very weak and tearful yesterday in PT when ambulating. Slow recovery predicted so I ordered 03/10 due to her severe weakness and difficulty coping. Patient's creatinine did increase to 2.75 and h/o CRI and DM nephropathy so will monitor that closely and we have DC abx that could likely be the source. Hyperglycemia from steroids continue and she has severe insulin resistance. Patient denies pain and no BM for several days and cath was DC so will work towards increasing strength and be able to DC home with . Subjective/Events-last exam brought her home CPAP machine since she was to start using that and sh e's been using the BiPAP here in the hospital but she struggled with the last night but will work through it and oxygen is bleeding into the machine Maintained on oxygen and likely will require that / when she is discharged but then will need to work on weaning off at home LUIZ hose are helping with the edema Dizziness is improved Decreasing Levemir from 50-30 down from original 80. Hyperglycemia continues Prednisone of 10 mg will be stopped after tomorrow status Right hip pain has been addressed by Dr. Melendez consultation and his help is appreciated Overall doing very well. Checked meds and labs Conferred with RN Reviewed therapy notes Review of Systems Pulmonary: Dyspnea Musculoskeletal: leg pain Objective Exam Vital Signs Vital Signs Date Time Temp Pulse Resp B/P (MAP) Pulse Ox O2 Delivery O2 Flow Rate FiO2 01/21/19 09:00 Nasal Cannula 2.00 01/21/19 06:16 98 01/21/19 06:00 36.6 83 20 120/76 (91) 01/20/19 09:33 28 Capillary Refill : Less Than 3 Seconds General Appearance: No Apparent Distress, WD/WN, Anxious, Chronically ill HEENT: PERRL/EOMI, Normal ENT Inspection, Pharynx Normal, Moist Mucous Membranes Neck: Full Range of Motion, Normal Inspection, Non Tender, Supple Respiratory: Chest Non Tender, Normal Breath Sounds, No Accessory Muscle Use, No Respiratory Distress, Crackles Cardiovascular: No Edema, No Gallop, No JVD, No Murmur, Irregularly Irregular Gastrointestinal: Normal Bowel Sounds, No Organomegaly, No Pulsatile Mass, Non Tender, Soft Back: Normal Inspection, No CVA Tenderness, No Vertebral Tenderness Extremity: Normal Capillary Refill, Normal Inspection, Normal Range of Motion, Non Tender, No Calf Tenderness, No Pedal Edema Neurologic/Psychiatric: Alert, Oriented x3, No Motor/Sensory Deficits (generalized all extremites), Normal Mood/Affect Skin: Normal Color, Warm/Dry Lymphatic: No Adenopathy Results/Procedures Lab Patient resulted labs reviewed. FIM Transfers Therapy Code Descriptions/Definitions Functional [place] Measure: 0=Not Assessed/NA 4=Minimal Assistance 1=Total Assistance 5=Supervision or Setup 2=Maximal Assistance 6=Modified [place] 3=Moderate Assistance 7=Complete IndependenceSCALE: Activities may be completed with or without assistive devices. 6-Whzkvzewbp-hpqcecb completes the activity by him/herself with no assistance from a helper. 5-Set-up or Clean-up Assistance-helper sets up or cleans up; patient completes activity. [place] assists only prior to or following the activity. 4-Supervision or Touching Assistance-helper provides verbal cues and/or touching/steadying and/or contact guard assistance as patient completes activity. Assistance may be provided throughout the activity or intermittently. 3-Partial/Moderate Assistance-helper does LESS THAN HALF the effort. [place] lifts, holds or supports trunk or limbs, but provides less than half the effort. 2-Substantial/Maximal Assistance-helper does MORE THAN HALF the effort. [place] lifts or holds trunk or limbs and provides more than half the effort. 6-Damcfguso-bfhbci does ALL the effort. Patient does none of the effort to complete the activity. Or, the assistance of 2 or more helpers is required for the patient to complete the activity. If activity was not attempted, code reason: 7-Patient Refused. 9-Not Applicable-not attempted and the patient did not perform the activity before the current illness, exacerbation or injury. 10-Not Attempted due to Environmental Limitations-(lack of equipment, weather restraints, etc.). 88-Not Attempted due to Medical Conditions or Safety Concerns. Transfers (B, C, W/C) (FIM): 5 Roll Left to Right (QC): 5 Sit to Lying (QC): 5 Sit to Stand (QC): 5 Chair/Eoi-hq-Odrnr Xfer(QC): 5 Bed to/from Chair: 5 Car Transfer (QC): 4 (SBA) Gait Training Does the Patient Walk?: Yes Gait (FIM): 4 (SBA) Distance (FIM): 3=150 ft Distance: 400',100' Walk 10 feet (QC): 6 Walk 50 ft with 2 Turns(QC): 5 Walk 150 ft (QC): 4 (SBA) Walking 10ft/uneven surface-QC: 4 (CGA) Gait Persons Needed: 1 Gait Assistive Device: FWW Wheelchair Training Does the Pt Use a Wheelchair?: No Stair Training Stair Training: Handrails/: 2 handrails #of Steps: 4 (x2) 1 Step (curb) (QC): 4 4 Steps (QC): 4 12 Steps (QC): 4 (CGA) Stairs: Pattern: Step to Balance Picking up an Object (QC): 3 (modA. Pt was unstable but able to get to pen and back up with 1 hand on FWW) ADL-Treatment Eating (QC): 6 Oral Hygiene (QC): 4 (Pt completed oral hygiene standing with walker at sink. Pt required CGA.) Bathing Location: L Arm, R Arm, L Upper Leg, R Upper Leg, L Lower Leg (including foot) (long handled sponge), R Lower Leg (including foot) (long handle sponge), Chest, Abdomen, Buttocks, Perineal Area Shower/Bathe Self (QC): 6 (Seated at the shower bench, pt completed shower independently using hand held shower, long handle sponge and grab bar. ) Upper Body Dressing (QC): 5 (Pt completed upper body dressing while seated on a chair. after set up.) Lower Body Dressing (QC): 4 (Pt offered AE but only utilized sock aid to don socks. Pt required CGA while standing to hike pants and underwear over hips.) Toileting Hygiene (QC): 7 Toilet Transfer (QC): 7 Assessment/Plan Assessment and Plan Assess & Plan/Chief Complaint Assessment: Respiratory failure now improved off biPAP and Vapotherm Severe COPD Former smoker AF OAC ARF on CRI HTN Diabetes [id number] now improved since titrating down steroids Right hip pain consulted Dr. Melendez Plan: IRF protocols with 03/10 for expected slow recovery due to severe weakness Monitor oxygen and creatinine O2 Nebs Much improved Dr Luna consultation due to severity of her COPD Improved dramatically Monitor for low sugars Improved renal function now Wean off steroids Decrease long-acting insulin due to hypoglycemia in the morning Appreciate Dr. Melendez input for right hip pain (1) COPD (chronic obstructive pulmonary disease) (2) Debility (3) Hyperkalemia Status: Acute (4) Hyperphosphatemia Status: Acute (5) Respiratory failure Status: Acute (6) BiPAP (biphasic positive airway pressure) dependence (7) DVT prophylaxis Status: Acute (8) Elevated AST (SGOT) Status: Acute (9) Acute renal insufficiency Status: Acute (10) Diabetes mellitus, type 2 Status: Chronic (11) CKD (chronic kidney disease) Status: Chronic (12) A-fib (13) GERD (gastroesophageal reflux disease) Status: Chronic (14) HTN (hypertension) Status: Chronic (15) HLD (hyperlipidemia) Status: Chronic ZACK ESCOBEDO DO Jan 21, 2019 11:47 POS
--- NOTE | 2019-01-21 12:51 | Physical Therapy Daily Note ---
PT Daily Note-Current Subjective Pt agreeable. Pt denied pain. Mental Status Patient Orientation: Person, Place, Situation Transfers SCALE: Activities may be completed with or without assistive devices. 3-Gjlvoimjlx-szicayo completes the activity by him/herself with no assistance f rom a helper. 5-Set-up or Clean-up Assistance-helper sets up or cleans up; patient completes activity. Jeffrey assists only prior to or following the activity. 4-Supervision or Touching Assistance-helper provides verbal cues and/or touching/steadying and/or contact guard assistance as patient completes activity. Assistance may be provided throughout the activity or intermittently. 3-Partial/Moderate Assistance-helper does LESS THAN HALF the effort. Jeffrey lifts, holds or supports trunk or limbs, but provides less than half the effort. 2-Substantial/Maximal Assistance-helper does MORE THAN HALF the effort. Jeffrey lifts or holds trunk or limbs and provides more than half the effort. 1-Hmzaltwab-oknbab does ALL the effort. Patient does none of the effort to complete the activity. Or, the assistance of 2 or more helpers is required for the patient to complete the activity. If activity was not attempted, code reason: 7-Patient Refused. 9-Not Applicable-not attempted and the patient did not perform the activity before the current illness, exacerbation or injury. 10-Not Attempted due to Environmental Limitations-(lack of equipment, weather restraints, etc.). 88-Not Attempted due to Medical Conditions or Safety Concerns. Weight Bearing Right Lower Extremity: Right Weight Bearing/Tolerated Left Lower Extremity: Left Weight Bearing/Tolerated Exercises Seated Therapy Exercises: Ankle pumps, Long arc quads, Hip flexion Seated Reps: 20 Treatments O2 at 2L/min portable O2 during ambulation and per nasal canula post therapy session. Pt O2 sats remained >90% throughout treatment. Pt amb with FWW and O2 2 x 150ft. Nu-step 7 min, level 2. Pt back to chair with call light, O2 insitu and all needs met. Assessment Current Status: Good Progress Pt O2 remained >90% throughout treatment. Pt victoriano well with good performance. Pt fatigued at 7 min on nu-step so stopped with only short rest required before pt ready to ambulate back to room. Pt resting comfortably with call light and all needs met. PT Short Term Goals Short Term Goals Time Frame: Jan 20, 2019 Gait Distance Comment: 150' Gait Assistive Device: FWW (SBA) PT Jail Goals Grocery Department Manager Goals PT Grocery Department Manager Goals Time Frame: Feb 03, 2019 Sit to Lying (QC): 6 Lying-Sitting on Side/Bed(QC): 6 Sit to Stand (QC): 6 Roll Left to Right (QC): 6 Chair/Qyq-qu-Zjsgb Xfer(QC): 6 Car Transfer (QC): 6 Does the Patient Walk: Yes Distance: 300' Walk 10 feet (QC): 6 Walk 10ft-Uneven Surface(QC): 4 (SBA) Walk 50ft with 2 Turns (QC): 6 Walk 150 ft (QC): 6 Gait Assistive Device: FWW Does the Pt use WC or Scooter?: No # of Steps: 4 1 Step (curb) (QC): 4 (SBA) 4 Steps (QC): 4 (SBA) Picking up an Object (QC): 4 (SBA) PT Plan Treatment/Plan Treatment Plan: Continue Plan of Care Treatment Plan: Bed Mobility, Education, Functional Activity Diane, Functional Strength, Group Therapy, Gait, Safety, Therapeutic Exercise, Transfers Treatment Duration: Feb 03, 2019 Frequency: At least 5 of 7 days/Wk (IRF) Estimated Hrs Per Day: 1.5 hours per day Patient and/or Family Agrees t: Yes Time/GCodes Time In: 1000 Time Out: 1023 Total Billed Treatment Time: 23 Total Billed Treatment Gait 10min, ther ex 13min ALESSANDRA SAMSON CPTA Jan 21, 2019 12:51 POS
[2019-01-21] MEDS: RIVAROXABAN 15 MG TABLET (XARELTO) PO SCH (16:51)
[2019-01-21 17:19] VITALS: BP 127/71
[2019-01-21 20:00] VITALS: BP 158/73
[2019-01-21] MEDS: FENOFIBRATE 134 MG (LOFIBRA) CAPSULE PO SCH (20:00)
[2019-01-21] MEDS: PRIMIDONE 50 MG TAB (MYSOLINE) PO SCH (20:10)
[2019-01-21] MEDS: MAGNESIUM OXIDE (MAG-OX)400 MG TAB PO SCH (21:19)
--- NOTE | 2019-01-22 01:05 | NUR ---
WHEN ENTERED ROOM AT 2300 TO TAKE PATIENT HER HS SNACK, PATIENT STATED WAS NOT FEELING RIGHT. NOTED CONFUSION. BLOOD SUGAR WAS 29. IMMEDIATELY BEGAN DRINKS AND SNACKS. PATIENT WAS NAUSEOUS AND COMPLAIN FELT LIKE WAS GOING TO PASS OUT. 231 - ACCU CHECK 42. MORE SNACKS. 233 - ACCU CHECK 69. HAS HAD A TOTAL OF 4 ORANGE JUICES, 2 CHOCOLATE ICE CREAMS, 1 CHOCOLATE ENSURE, 3 [place] CRACKERS WITH PEANUT BUTTER, AND A HAM/CHEESE SANDWICH. 0010 - ACCU CHECK 76. FEELING "BACK TO NORMAL". 0110 - SLEEPING. ACCU CHECK 92.
--- NOTE | 2019-01-22 02:00 | NUR ---
DAYLIGHT SAVINGS TIME - TIME ADJUSTMENT.
[2019-01-22] MEDS: inSUlin ASPART (NovoLOG) 1 UNIT/0.01 ML (CHARGE PER UNIT) SC SCH ×5 (05:49→21:01)
[2019-01-22 05:54] VITALS: BP 121/74
[2019-01-22] MEDS: KCL 10 MEQ TAB (MICRO K) PO SCH (06:46)
[2019-01-22] MEDS ORDERED: predniSONE 10 MG TAB PO ONE (07:00)
--- NOTE | 2019-01-22 07:00 | NUR ---
DR. ESCOBEDO NOTIFIED OF ACCUCHECK OF 29 AT 2300 AND SLOWLY RISING THROUGHOUT NIGHT. ACCUCHECK 142 THIS AM. ORDER TO HOLD INSULIN FOR NOW.
[2019-01-22 09:00] VITALS: BP 135/75
[2019-01-22] MEDS: DRONEDARONE TABLET 400 MG TABLET PO SCH ×2 (09:12→20:56)
[2019-01-22] MEDS: ISOSORBIDE MONONITRATE 60 MG (IMDUR) TAB PO SCH (09:12)
[2019-01-22] MEDS: DILTIAZEM 240 MG (CARDIZEM CD) CAP PO SCH (09:12)
[2019-01-22] MEDS: SENNA W/DOCUSATE (SENOKOT S) TABLET PO SCH ×2 (09:12→20:58)
[2019-01-22] MEDS: PANTOPRAZOLE 40 MG (PROTONIX) TAB PO SCH (09:13)
[2019-01-22] MEDS: FUROSEMIDE 20 MG (LASIX) TAB PO SCH (09:13)
[2019-01-22] MEDS: GABAPENTIN 600 MG (NEURONTIN) TAB PO SCH ×2 (09:13→20:57)
[2019-01-22] MEDS: ASPIRIN E.C. 81 MG (ECOTRIN) TAB PO SCH (09:13)
[2019-01-22] MEDS: cloNIDine 0.1 MG (CATAPRES) TAB PO SCH ×2 (09:13→20:55)
[2019-01-22] MEDS: LACTULOSE SYRUP 10GM/15ML (ENULOSE) 30ML UDC PO SCH ×2 (09:14→20:56)
[2019-01-22] MEDS: POLYETHYLENE GLYCOL 17 GM (MIRALAX) PACK PO SCH ×2 (09:15→21:00)
[2019-01-22] MEDS: RT-ALBUTEROL/IPRATROPIUM 3 ML (DUONEB) VIAL INH SCH ×2 (09:24→20:37)
--- NOTE | 2019-01-22 09:30 | NUR ---
Blood glucose check 255. Held insulin per Dr. Lopez's order. Pt not symptomatic.
--- NOTE | 2019-01-22 13:58 | NUR ---
Pt blood glucose 398. Will recheck in 1 hour. Pt insulin dose changed to SSA and Accu check AC/HS
--- NOTE | 2019-01-22 14:01 | PM&R Progress Note ---
Subjective HPI/CC On Admission Date Seen by Provider: Jan 22, 2019 Time Seen by Provider: 13:30 CC: Debility Hospital course from med-surg: Pt was admitted to the ICU from the ER for shortness of breath and chest pain with deep breathing. She was started on IV steroids, antibiotics, and placed on Vapotherm with a BiPAP at night. She improved after a couple days in the ICU and was moved to med/surg after stopping Vapotherm and beginning 3L O2 nasal cannula while continuing BiPAP at night. She continued to improve reporting no trouble breathing while receiving DuoNeb treatments, nasal cannula O2, and BiPAP at night. She did feel extremely wobbly trying to stand and walking was very di fficult requiring a lot of assistance from staff. She was recommended and evaluated for the Rehab unit to help with her recovery. She was discharged very willing and motivated to enter the Rehab unit. HPI: Patient is adjusting well to the IRF protocols. Very weak and tearful yesterday in PT when ambulating. Slow recovery predicted so I ordered 03/10 due to her severe weakness and difficulty coping. Patient's creatinine did increase to 2.75 and h/o CRI and DM nephropathy so will monitor that closely and we have DC abx that could likely be the source. Hyperglycemia from steroids continue and she has severe insulin resistance. Patient denies pain and no BM for several days and cath was DC so will work towards increasing strength and be able to DC home with . Subjective/Events-last exam Blood sugars were very low through the night Lowest was 20 Holding all insulin and then sugar was 255 before lunch so will initiate sliding scale insulin with Accu-Cheks before meals and at bedtime No pain is reported except hip Hip pain will be evaluated with MRI tomorrow ordered by Dr. Melendez Overall improving immensely Planning on going home this week Maintain on oxygen 12/10 Overall doing very well. Checked meds and labs Conferred with RN Reviewed therapy notes Review of Systems General: Fatigue Musculoskeletal: leg pain Objective Exam Vital Signs Vital Signs Date Time Temp Pulse Resp B/P (MAP) Pulse Ox O2 Delivery O2 Flow Rate FiO2 01/22/19 09:24 94 Nasal Cannula 2.00 01/22/19 09:00 85 135/75 (95) 01/22/19 05:54 36.5 20 01/20/19 09:33 28 Capillary Refill : Less Than 3 Seconds General Appearance: No Apparent Distress, WD/WN, Anxious, Chronically ill HEENT: PERRL/EOMI, Normal ENT Inspection, Pharynx Normal, Moist Mucous Membranes Neck: Full Range of Motion, Normal Inspection, Non Tender, Supple Respiratory: Chest Non Tender, Normal Breath Sounds, No Accessory Muscle Use, No Respiratory Distress, Crackles Cardiovascular: No Edema, No Gallop, No JVD, No Murmur, Irregularly Irregular Gastrointestinal: Normal Bowel Sounds, No Organomegaly, No Pulsatile Mass, Non Tender, Soft Back: Normal Inspection, No CVA Tenderness, No Vertebral Tenderness Extremity: Normal Capillary Refill, Normal Inspection, Normal Range of Motion, Non Tender, No Calf Tenderness, No Pedal Edema Neurologic/Psychiatric: Alert, Oriented x3, No Motor/Sensory Deficits (generalized all extremites), Normal Mood/Affect Skin: Normal Color, Warm/Dry Lymphatic: No Adenopathy Results/Procedures Lab Patient resulted labs reviewed. FIM Transfers Therapy Code Descriptions/Definitions Functional [place] Measure: 0=Not Assessed/NA 4=Minimal Assistance 1=Total Assistance 5=Supervision or Setup 2=Maximal Assistance 6=Modified [place] 3=Moderate Assistance 7=Complete IndependenceSCALE: Activities may be completed with or without assistive devices. 2-Tqdqvriomj-yllzjiq completes the activity by him/herself with no assistance from a helper. 5-Set-up or Clean-up Assistance-helper sets up or cleans up; patient completes activity. Cedar assists only prior to or following the activity. 4-Supervision or Touching Assistance-helper provides verbal cues and/or touching/steadying and/or contact guard assistance as patient completes activity. Assistance may be provided throughout the activity or intermittently. 3-Partial/Moderate Assistance-helper does LESS THAN HALF the effort. Cedar lifts, holds or supports trunk or limbs, but provides less than half the effort. 2-Substantial/Maximal Assistance-helper does MORE THAN HALF the effort. Cedar lifts or holds trunk or limbs and provides more than half the effort. 4-Fmgubcacc-xjqdfj does ALL the effort. Patient does none of the effort to complete the activity. Or, the assistance of 2 or more helpers is required for the patient to complete the activity. If activity was not attempted, code reason: 7-Patient Refused. 9-Not Applicable-not attempted and the patient did not perform the activity before the current illness, exacerbation or injury. 10-Not Attempted due to Environmental Limitations-(lack of equipment, weather restraints, etc.). 88-Not Attempted due to Medical Conditions or Safety Concerns. Transfers (B, C, W/C) (FIM): 5 Roll Left to Right (QC): 5 Sit to Lying (QC): 5 Sit to Stand (QC): 5 Chair/Fxq-zg-Ukqpw Xfer(QC): 5 Bed to/from Chair: 5 Car Transfer (QC): 4 (SBA) Gait Training Does the Patient Walk?: Yes Gait (FIM): 4 (SBA) Distance (FIM): 3=150 ft Distance: 400',100' Walk 10 feet (QC): 6 Walk 50 ft with 2 Turns(QC): 5 Walk 150 ft (QC): 4 (SBA) Walking 10ft/uneven surface-QC: 4 (CGA) Gait Persons Needed: 1 Gait Assistive Device: FWW Wheelchair Training Does the Pt Use a Wheelchair?: No Stair Training Stair Training: Handrails/: 2 handrails #of Steps: 4 (x2) 1 Step (curb) (QC): 4 4 Steps (QC): 4 12 Steps (QC): 4 (CGA) Stairs: Pattern: Step to Balance Picking up an Object (QC): 3 (modA. Pt was unstable but able to get to pen and back up with 1 hand on FWW) ADL-Treatment Eating (QC): 6 Oral Hygiene (QC): 4 (Pt completed oral hygiene standing with walker at sink. Pt required CGA.) Bathing Location: L Arm, R Arm, L Upper Leg, R Upper Leg, L Lower Leg (including foot) (long handled sponge), R Lower Leg (including foot) (long handle sponge), Chest, Abdomen, Buttocks, Perineal Area Shower/Bathe Self (QC): 6 (Seated at the shower bench, pt completed shower independently using hand held shower, long handle sponge and grab bar. ) Upper Body Dressing (QC): 5 (Pt completed upper body dressing while seated on a chair. after set up.) Lower Body Dressing (QC): 4 (Pt offered AE but only utilized sock aid to don socks. Pt required CGA while standing to hike pants and underwear over hips.) Toileting Hygiene (QC): 7 Toilet Transfer (QC): 7 Assessment/Plan Assessment and Plan Assess & Plan/Chief Complaint Assessment: Respiratory failure now improved off biPAP and Vapotherm Severe COPD Former smoker AF OAC ARF on CRI HTN Diabetes dvt-xr-izueymb now improved since titrating down steroids but now having severe hypoglycemia so holding insulin until today at noon starting SSI A AC/HS Right hip pain consulted Dr. Melendez MRI scheduled for tomorrow Plan: IRF protocols with 03/10 for expected slow recovery due to severe weakness Monitor oxygen and creatinine O2 Nebs Much improved Dr Luna consultation due to severity of her COPD Improved dramatically Monitor for low sugars Improved renal function now Wean off steroids Decrease long-acting insulin due to hypoglycemia in the morning Appreciate Dr. Melendez input for right hip pain (1) COPD (chronic obstructive pulmonary disease) (2) Debility (3) Hyperkalemia Status: Acute (4) Hyperphosphatemia Status: Acute (5) Respiratory failure Status: Acute (6) BiPAP (biphasic positive airway pressure) dependence (7) DVT prophylaxis Status: Acute (8) Elevated AST (SGOT) Status: Acute (9) Acute renal insufficiency Status: Acute (10) Diabetes mellitus, type 2 Status: Chronic (11) CKD (chronic kidney disease) Status: Chronic (12) A-fib (13) GERD (gastroesophageal reflux disease) Status: Chronic (14) HTN (hypertension) Status: Chronic (15) HLD (hyperlipidemia) Status: Chronic ZACK ESCOBEDO DO Jan 22, 2019 14:01 POS
--- NOTE | 2019-01-22 15:00 | NUR ---
BS 356 will continue to monitor and initiate SS-A per order.
[2019-01-22] MEDS ORDERED: inSUlin ASPART (NovoLOG) 1 UNIT/0.01 ML (CHARGE PER UNIT) SC SCH ×2 (15:30→16:00)
[2019-01-22] MEDS: RIVAROXABAN 15 MG TABLET (XARELTO) PO SCH (16:42)
[2019-01-22 17:02] VITALS: BP 148/70
[2019-01-22] MEDS: FENOFIBRATE 134 MG (LOFIBRA) CAPSULE PO SCH (20:57)
[2019-01-22] MEDS: PRIMIDONE 50 MG TAB (MYSOLINE) PO SCH (20:58)
[2019-01-22] MEDS: MAGNESIUM OXIDE (MAG-OX)400 MG TAB PO SCH (21:00)
[2019-01-23 05:44] VITALS: BP 138/81
[2019-01-23 06:14] LABS: BASOPHILS % (AUTO) 0 % (0-10); EOSINOPHILS # (AUTO) 0.1 10^3/uL (0.0-0.3); EOSINOPHILS % (AUTO) 1 % (0-10); HEMATOCRIT 29 % (35-52); HEMOGLOBIN 8.9 G/DL (11.5-16.0); LYMPHOCYTES # (AUTO) 1.6 X 10^3 (1.0-4.0); LYMPHOCYTES % (AUTO) 19 % (12-44); MEAN CORPUSCULAR HEMOGLOBIN 27 PG (25-34); MEAN CORPUSCULAR HGB CONC 30 G/DL (32-36); MEAN CORPUSCULAR VOLUME 88 FL (80-99); MEAN PLATELET VOLUME 10.7 FL (7.4-10.4); MONOCYTES # (AUTO) 0.4 X 10^3 (0.0-1.0); MONOCYTES % (AUTO) 5 % (0-12); NEUTROPHILS # (AUTO) 6.1 X 10^3 (1.8-7.8); NEUTROPHILS % (AUTO) 75 % (42-75); PLATELET COUNT 190 10^3/uL (130-400); RED CELL DISTRIBUTION WIDTH 14.5 % (10.0-14.5); WHITE BLOOD COUNT 8.2 10^3/uL (4.3-11.0)
[2019-01-23 06:36] LABS: ALBUMIN 3.2 GM/DL (3.2-4.5); BILIRUBIN,TOTAL 0.3 MG/DL (0.1-1.0); CALCIUM 8.7 MG/DL (8.5-10.1); CREATININE SERUM 1.63 MG/DL (0.60-1.30); POTASSIUM 4.4 MMOL/L (3.6-5.0); TOTAL PROTEIN 6.1 GM/DL (6.4-8.2)
[2019-01-23] MEDS: inSUlin ASPART (NovoLOG) 1 UNIT/0.01 ML (CHARGE PER UNIT) SC SCH ×4 (06:58→21:22)
[2019-01-23] MEDS: KCL 10 MEQ TAB (MICRO K) PO SCH (06:58)
[2019-01-23 08:00] VITALS: BP 134/75
--- NOTE | 2019-01-23 08:17 | Cardiology Progress Note ---
Subjective Date Seen by Provider: Jan 23, 2019 Time Seen by Provider: 08:12 Subjective/Events-last exam Patient sitting up in chair, no new complaints. Denies any chest pain or dyspnea Review of Systems General: No Chills, No Night Sweats, No Fatigue, No Malaise, No Appetite, No Other HEENT: No Head Aches, No Visual Changes, No Eye Pain, No Ear Pain, No Dysphasia, No Sinus Congestion, No Post Nasal Drip, No Sore Throat, No Other Pulmonary: Dyspnea; No Cough, No Pleuritic Chest Pain, No Other Cardiovascular: No: Chest Pain, Palpitations, Orthopnea, Paroxysmal Noc. Dyspnea, Edema, Lt Headedness, Other Objective-Cardiology Exam Last Set of Vital Signs Vital Signs 01/20/19 01/22/19 01/23/19 09:33 21:00 05:44 Temp 36.8 Pulse 85 Resp 18 B/P (MAP) 138/81 (100) Pulse Ox 96 O2 Delivery NIV CPAP O2 Flow Rate 2.00 FiO2 28 Capillary Refill : Less Than 3 Seconds I&O Intake and Output 01/23/19 00:00 Intake Total 5850 ml Balance 5850 ml Intake Oral 5850 ml # Voids 10 # Bowel Movements 1 General: Alert, Oriented X3, Cooperative HEENT: Atraumatic, PERRLA Neck: Supple, No JVD, No Thyromegaly Lungs: Clear to Auscultation, Normal Air Movement Heart: Normal S1, Normal S2, No Murmurs, Other (irregular) Abdomen: Normal Bowel Sounds, Soft, No Tenderness, No Hepatosplenomegaly, No Masses Extremities: No Clubbing, No Cyanosis, Normal Pulses, No Tenderness/Swelling, Other (Mild edema) Skin: No Rashes, No Breakdown, No Significant Lesion Neuro: Normal Gait, Normal Speech, Strength at 5/5 X4 Ext, Normal Tone, Sensation Intact Psych/Mental Status: Mental Status NL, Mood NL Results Lab Laboratory Tests 01/23/19 05:22 A/P-Cardiology Admission Diagnosis Paroxysmal atrial fibrillation Coronary artery disease Hypertension Hyperlipidemia Assessment/Plan Status post respiratory failure, better at this time, has history of severe COPD with multiple exacerbation. Acute renal failure, improved, continue to monitor. Paroxysmal atrial fibrillation, had history of cardioversion, currently in afib, heart rate is controlled. Tolerating medication well. Continue to monitor Sinus node dysfunction with history of severe bradycardia, monitor heart rate closely. Mild elevation in troponin level, no active chest pain, no acute EKG changes, probably due to hypoxemia and small vessel disease. Medical therapy is recommended continue to monitor Type II myocardial infarction secondary to hypoxemia, last cardiac catheterization as described below Coronary artery disease, history of stent placement 2 to the LAD. In August 2013 cardiac cath revealed patent stents to LAD, known to have Taxus 320 mm stent in the mid LAD, proximal to that there was a stent placed in 2011 which is 312 mm Ion stent. Both are patent with 40-50 percent in-stent restenosis. Secondary branch had 90 percent stenosis at the ostium. Small artery, not amendable to intervention. Another cardiac catheterization February 2015 showing patent stents in the proximal LAD with 50 percent stenosis beyond the stent and 50 percent stenosis at the midportion of the LAD small vessel disease distally, moderate 40-50 percent stenosis in the right coronary artery with multiple segment of the proximal, mid and distal portion. Cardiac catheterization done March 05, 2017 revealed severe LAD stenosis beyond the previously known stent 3.0. Successful primary stenting using 3.08 mm ALPINE expanded to 3.5 with excellent results, balloon for in-stent restenosis also was made. Most recent cardiac catheterization done March 09, 2018 revealed patent stent with small vessel disease, no intervention required. continue to monitor [id number] score of 4, yearly risk of stroke without oral anticoagulation is 4 percent. Maintained on Xarelto 15mg. Hypertension, controlled, continue on current medication monitor blood pressure Renal arterial duplex done July 2015 revealed proximal right renal artery not evaluated, other segments of the left renal artery demonstrated no evidence of significant stenosis, continue to monitor Hyperlipidemia, continue to monitor lipids Obstructive sleep apnea, using C Pap, using oxygen as needed Nonobstructive carotid artery stenosis per carotid duplex done in February 2018, continue to monitor. Diabetes mellitus-managed by primary care physician Chronic pain, followed and managed by primary care physician Obesity, BMI is 37, discussed diet and exercise for weight loss. Patient was seen and evaluated with Kaela, examination performed, management plan was discussed, agree with the current scribed note, I made few changes to the note using Italic font Patient is sitting in a chair, feeling better, breathing better Heart rate is controlled Continue on current medication and continue to monitor Clinical Quality Measures DVT/VTE Risk/Contraindication: Risk Factor Score Per Nursin RFS Level Per Nursing on Admit: 4+=Very High KAELA CAPPS Jan 23, 2019 8:17 am BOOM REED MD Jan 23, 2019 9:47 am POS
--- NOTE | 2019-01-23 08:49 | Physical Therapy Daily Note ---
PT Daily Note-Current Subjective Pt. agrees to Rx and states she feels she is much better and stronger Pain Location: No Pain Reported Mental Status Patient Orientation: Normal For Age Attachments: Oxygen (2L) Transfers SCALE: Activities may be completed with or without assistive devices. 1-Prgzduwokb-okizkok completes the activity by him/herself with no assistance from a helper. 5-Set-up or Clean-up Assistance-helper sets up or cleans up; patient completes activity. [place] assists only prior to or following the activity. 4-Supervision or Touching Assistance-helper provides verbal cues and/or touching/steadying and/or contact guard assistance as patient completes activity. Assistance may be provided throughout the activity or intermittently. 3-Partial/Moderate Assistance-helper does LESS THAN HALF the effort. [place] lifts, holds or supports trunk or limbs, but provides less than half the effort. 2-Substantial/Maximal Assistance-helper does MORE THAN HALF the effort. [place] lifts or holds trunk or limbs and provides more than half the effort. 2-Extlevkvr-gqmvqo does ALL the effort. Patient does none of the effort to complete the activity. Or, the assistance of 2 or more helpers is required for the patient to complete the activity. If activity was not attempted, code reason: 7-Patient Refused. 9-Not Applicable-not attempted and the patient did not perform the activity before the current illness, exacerbation or injury. 10-Not Attempted due to Environmental Limitations-(lack of equipment, weather restraints, etc.). 88-Not Attempted due to Medical Conditions or Safety Concerns. Transfers (B, C, W/C): 6 Roll Left to Right (QC): 6 Sit to Lying (QC): 6 Sit to Stand (QC): 6 Chair/Erl-zb-Eswvo Xfer(QC): 6 Bed to/from Chair: 6 Weight Bearing Right Lower Extremity: Right Weight Bearing/Tolerated Left Lower Extremity: Left Weight Bearing/Tolerated Gait Training Does the Patient Walk?: Yes Gait: 5 Walk 10 feet (QC): 5 Walk 50 ft with 2 Turns(QC): 5 Walk 150 ft (QC): 5 Walking 10ft/uneven surface-QC: 5 Gait Persons Needed: 1 Gait Assistive Device: FWW assist with O2 portable only Stair Training Stair Training: Handrails/: 1 handrail #of Steps: 8 4 Steps (QC): 5 Stairs: Pattern: Reciprocal (up , step to down) Exercises Supine Ex: Bridging, Ankle pumps, Quad Set, Rolling, Glut sets, Heel Slides, Scooting, Straight leg raise, Hip abd/add (sidelying) Supine Reps: 15 Seated Therapy Exercises: Ankle pumps, Sit to stand, Long arc quads, Hip flexion, Hip abd/add Seated Reps: 15 NuStep Minutes: 8 NuStep Workload: 2 Assessment Current Status: Good Progress PT Short Term Goals Short Term Goals Time Frame: Jan 20, 2019 Gait Distance Comment: 150' Gait Assistive Device: FWW (SBA) PT Micro Lab Analyst Goals Fpc Goals PT Fpc Goals Time Frame: Feb 03, 2019 Sit to Lying (QC): 6 Lying-Sitting on Side/Bed(QC): 6 Sit to Stand (QC): 6 Roll Left to Right (QC): 6 Chair/Zya-ku-Ydltt Xfer(QC): 6 Car Transfer (QC): 6 Does the Patient Walk: Yes Distance: 300' Walk 10 feet (QC): 6 Walk 10ft-Uneven Surface(QC): 4 (SBA) Walk 50ft with 2 Turns (QC): 6 Walk 150 ft (QC): 6 Gait Assistive Device: FWW Does the Pt use WC or Scooter?: No # of Steps: 4 1 Step (curb) (QC): 4 (SBA) 4 Steps (QC): 4 (SBA) Picking up an Object (QC): 4 (SBA) PT Plan Treatment/Plan Treatment Plan: Continue Plan of Care Treatment Plan: Bed Mobility, Education, Functional Activity Diane, Functional Strength, Group Therapy, Gait, Safety, Therapeutic Exercise, Transfers Treatment Duration: Feb 03, 2019 Frequency: At least 5 of 7 days/Wk (IRF) Estimated Hrs Per Day: 1.5 hours per day Patient and/or Family Agrees t: Yes Safety Risks/Education Patient Education: Gait Training, Transfer Techniques, Steps, Correct Positioning, Disease Process, Safety Issues Teaching Recipient: Patient Teaching Methods: Demonstration, Discussion Response to Teaching: Verbalize Understanding, Return Demonstration, Reinforcement Needed Time/GCodes Time In: 800 Time Out: 845 Total Billed Treatment Time: 45 Total Billed Treatment 1,FA10m,GT15m,EX20m BLU [employer]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
--- NOTE | 2019-01-23 08:58 | PM&R Progress Note ---
Subjective HPI/CC On Admission Date Seen by Provider: Jan 23, 2019 Time Seen by Provider: 08:30 CC: Debility Hospital course from med-surg: Pt was admitted to the ICU from the ER for shortness of breath and chest pain with deep breathing. She was started on IV steroids, antibiotics, and placed on Vapotherm with a BiPAP at night. She improved after a couple days in the ICU and was moved to med/surg after stopping Vapotherm and beginning 3L O2 nasal cannula while continuing BiPAP at night. She continued to improve reporting no trouble breathing while receiving DuoNeb treatments, nasal cannula O2, and BiPAP at night. She did feel extremely wobbly trying to stand and walking was very difficult requiring a lot of assistance from staff. She was recommended and evaluated for the Rehab unit to help with her recovery. She was discharged very willing and motivated to enter the Rehab unit. HPI: Patient is adjusting well to the IRF protocols. Very weak and tearful yesterday in PT when ambulating. Slow recovery predicted so I ordered 03/10 due to her severe weakness and difficulty coping. Patient's creatinine did increase to 2.75 and h/o CRI and DM nephropathy so will monitor that closely and we have DC abx that could likely be the source. Hyperglycemia from steroids continue and she has severe insulin resistance. Patient denies pain and no BM for several days and cath was DC so will work towards increasing strength and be able to DC home with . Subjective/Events-last exam We will DC Magnesium since her level was 2.6 CPAP was well tolerated last night Creatinine to 1.63 baseline Accu check at 237 sliding scale insulin A in addition to starting back on Levemir 15 units at night MRI of the back ordered today by Dr. Melendez No dizziness reported Overall dramatic improvement Maintain on oxygen 12/10 Overall doing very well. Checked meds and labs Conferred with RN Reviewed therapy notes Review of Systems General: Fatigue Pulmonary: Dyspnea Objective Exam Vital Signs Vital Signs Date Time Temp Pulse Resp B/P (MAP) Pulse Ox O2 Delivery O2 Flow Rate FiO2 01/23/19 19:08 98 Nasal Cannula 2.00 01/23/19 16:07 36.1 76 16 123/70 (87) 01/23/19 14:09 28 Capillary Refill : Less Than 3 Seconds General Appearance: No Apparent Distress, WD/WN, Anxious, Chronically ill HEENT: PERRL/EOMI, Normal ENT Inspection, Pharynx Normal, Moist Mucous Membranes Neck: Full Range of Motion, Normal Inspection, Non Tender, Supple Respiratory: Chest Non Tender, Normal Breath Sounds, No Accessory Muscle Use, No Respiratory Distress, Crackles Cardiovascular: No Edema, No Gallop, No JVD, No Murmur, Irregularly Irregular Gastrointestinal: Normal Bowel Sounds, No Organomegaly, No Pulsatile Mass, Non Tender, Soft Back: Normal Inspection, No CVA Tenderness, No Vertebral Tenderness Extremity: Normal Capillary Refill, Normal Inspection, Normal Range of Motion, Non Tender, No Calf Tenderness, No Pedal Edema Neurologic/Psychiatric: Alert, Oriented x3, No Motor/Sensory Deficits (generalized all extremites), Normal Mood/Affect Skin: Normal Color, Warm/Dry Lymphatic: No Adenopathy Results/Procedures Lab Laboratory Tests 01/23/19 05:22 Patient resulted labs reviewed. FIM Transfers Therapy Code Descriptions/Definitions Functional [place] Measure: 0=Not Assessed/NA 4=Minimal Assistance 1=Total Assistance 5=Supervision or Setup 2=Maximal Assistance 6=Modified [place] 3=Moderate Assistance 7=Complete IndependenceSCALE: Activities may be completed with or without assistive devices. 0-Qdksxadouu-xkrszph completes the activity by him/herself with no assistance from a helper. 5-Set-up or Clean-up Assistance-helper sets up or cleans up; patient completes activity. [place] assists only prior to or following the activity. 4-Supervision or Touching Assistance-helper provides verbal cues and/or touching/steadying and/or contact guard assistance as patient completes activity. Assistance may be provided throughout the activity or intermittently. 3-Partial/Moderate Assistance-helper does LESS THAN HALF the effort. [place] lifts, holds or supports trunk or limbs, but provides less than half the effort. 2-Substantial/Maximal Assistance-helper does MORE THAN HALF the effort. [place] lifts or holds trunk or limbs and provides more than half the effort. 2-Zikxymtal-hhiles does ALL the effort. Patient does none of the effort to com plete the activity. Or, the assistance of 2 or more helpers is required for the patient to complete the activity. If activity was not attempted, code reason: 7-Patient Refused. 9-Not Applicable-not attempted and the patient did not perform the activity before the current illness, exacerbation or injury. 10-Not Attempted due to Environmental Limitations-(lack of equipment, weather restraints, etc.). 88-Not Attempted due to Medical Conditions or Safety Concerns. Transfers (B, C, W/C) (FIM): 6 Roll Left to Right (QC): 6 Sit to Lying (QC): 6 Sit to Stand (QC): 6 Chair/Ysx-nm-Sjvka Xfer(QC): 6 Bed to/from Chair: 6 Car Transfer (QC): 4 (SBA) Gait Training Does the Patient Walk?: Yes Gait (FIM): 5 Distance (FIM): 3=150 ft Distance: 400',100' Walk 10 feet (QC): 5 Walk 50 ft with 2 Turns(QC): 5 Walk 150 ft (QC): 5 Walking 10ft/uneven surface-QC: 5 Gait Persons Needed: 1 Gait Assistive Device: FWW Wheelchair Training Does the Pt Use a Wheelchair?: No Stair Training Stair Training: Handrails/: 1 handrail #of Steps: 8 1 Step (curb) (QC): 4 4 Steps (QC): 5 12 Steps (QC): 4 (CGA) Stairs: Pattern: Reciprocal (up , step to down) Balance Picking up an Object (QC): 3 (modA. Pt was unstable but able to get to pen and back up with 1 hand on FWW) ADL-Treatment Eating (QC): 6 Oral Hygiene (QC): 4 (Pt completed oral hygiene standing with walker at sink. Pt required CGA.) Bathing Location: L Arm, R Arm, L Upper Leg, R Upper Leg, L Lower Leg (including foot) (long handled sponge), R Lower Leg (including foot) (long handle sponge), Chest, Abdomen, Buttocks, Perineal Area Shower/Bathe Self (QC): 6 (Seated at the shower bench, pt completed shower independently using hand held shower, long handle sponge and grab bar. ) Upper Body Dressing (QC): 5 (Pt completed upper body dressing while seated on a chair. after set up.) Lower Body Dressing (QC): 4 (Pt offered AE but only utilized sock aid to don socks. Pt required CGA while standing to hike pants and underwear over hips.) Toileting Hygiene (QC): 7 Toilet Transfer (QC): 7 Assessment/Plan Assessment and Plan Assess & Plan/Chief Complaint Assessment: Respiratory failure now improved off biPAP and Vapotherm Severe COPD Former smoker AF OAC ARF on CRI HTN Diabetes uyg-ty-ibreauu now improved since titrating down steroids but now having severe hypoglycemia so holding insulin until today at noon starting SSI A AC/HS Right hip pain consulted Dr. Melendez MRI scheduled for today Plan: IRF protocols with 03/10 for expected slow recovery due to severe weakness Monitor oxygen and creatinine O2 Nebs Much improved Dr Luna consultation due to severity of her COPD Improved dramatically Monitor for low sugars Improved renal function now Wean off steroids Decrease long-acting insulin due to hypoglycemia in the morning Appreciate Dr. Melendez input for right hip pain MRI review (1) COPD (chronic obstructive pulmonary disease) (2) Debility (3) Hyperkalemia Status: Acute (4) Hyperphosphatemia Status: Acute (5) Respiratory failure Status: Acute (6) BiPAP (biphasic positive airway pressure) dependence (7) DVT prophylaxis Status: Acute (8) Elevated AST (SGOT) Status: Acute (9) Acute renal insufficiency Status: Acute (10) Diabetes mellitus, type 2 Status: Chronic (11) CKD (chronic kidney disease) Status: Chronic (12) A-fib (13) GERD (gastroesophageal reflux disease) Status: Chronic (14) HTN (hypertension) Status: Chronic (15) HLD (hyperlipidemia) Status: Chronic ZACK ESCOBEDO DO Jan 23, 2019 08:58 POS
[2019-01-23] MEDS: FUROSEMIDE 20 MG (LASIX) TAB PO SCH (09:38)
[2019-01-23] MEDS: ASPIRIN E.C. 81 MG (ECOTRIN) TAB PO SCH (09:38)
[2019-01-23] MEDS: cloNIDine 0.1 MG (CATAPRES) TAB PO SCH ×2 (09:38→21:18)
[2019-01-23] MEDS: ISOSORBIDE MONONITRATE 60 MG (IMDUR) TAB PO SCH (09:38)
[2019-01-23] MEDS: DRONEDARONE TABLET 400 MG TABLET PO SCH ×2 (09:38→21:17)
[2019-01-23] MEDS: PANTOPRAZOLE 40 MG (PROTONIX) TAB PO SCH (09:38)
[2019-01-23] MEDS: DILTIAZEM 240 MG (CARDIZEM CD) CAP PO SCH (09:38)
[2019-01-23] MEDS: GABAPENTIN 600 MG (NEURONTIN) TAB PO SCH ×2 (09:38→21:18)
[2019-01-23] MEDS: POLYETHYLENE GLYCOL 17 GM (MIRALAX) PACK PO SCH ×2 (09:43→21:25)
[2019-01-23] MEDS: LACTULOSE SYRUP 10GM/15ML (ENULOSE) 30ML UDC PO SCH ×2 (09:43→21:18)
[2019-01-23] MEDS: SENNA W/DOCUSATE (SENOKOT S) TABLET PO SCH ×2 (09:45→21:17)
--- NOTE | 2019-01-23 09:53 | Occupational Ther Daily Note ---
OT Current Status-Daily Note Subjective Pt states that "I feel good today". Pt did not complain of pain. Appearance Pt seated in recliner when OT walked in room. Pt agrees to therapy treatment. Mental Status/Objective Patient Orientation: Person, Place, Time, Situation Attachments: Oxygen ADL-Treatment Therapy Code Descriptions/Definitions Functional [place] Measure: 0=Not Assessed/NA 4=Minimal Assistance 1=Total Assistance 5=Supervision or Setup 2=Maximal Assistance 6=Modified [place] 3=Moderate Assistance 7=Complete IndependenceSCALE: Activities may be completed with or without assistive devices. 6-Fqywwhlmwn-ubqyurp completes the activity by him/herself with no assistance from a helper. 5-Set-up or Clean-up Assistance-helper sets up or cleans up; patient completes activity. [place] assists only prior to or following the activity. 4-Supervision or Touching Assistance-helper provides verbal cues and/or touching/steadying and/or contact guard assistance as patient completes activity. Assistance may be provided throughout the activity or intermittently. 3-Partial/Moderate Assistance-helper does LESS THAN HALF the effort. [place] lifts, holds or supports trunk or limbs, but provides less than half the effort. 2-Substantial/Maximal Assistance-helper does MORE THAN HALF the effort. [place] lifts or holds trunk or limbs and provides more than half the effort. 8-Ovansbisd-teaaqm does ALL the effort. Patient does none of the effort to complete the activity. Or, the assistance of 2 or more helpers is required for the patient to complete the activity. If activity was not attempted, code reason: 7-Patient Refused. 9-Not Applicable-not attempted and the patient did not perform the activity before the current illness, exacerbation or injury. 10-Not Attempted due to Environmental Limitations-(lack of equipment, weather restraints, etc.). 88-Not Attempted due to Medical Conditions or Safety Concerns. Oral Hygiene (QC): 4 ( Pt completed oral hygiene standing with walker at the sink and required SBA for safety.) Bathing Location: L Arm, R Arm, L Upper Leg, R Upper Leg, L Lower Leg (including foot) (long handle sponge), R Lower Leg (including foot) (long handle sponge), Chest, Abdomen, Buttocks, Perineal Area Shower/Bathe Self (QC): 4 (Using grabbars, hand held shower and long handled sponge, pt completed shower independently with supervision.) Upper Body Dressing (QC): 5 (Pt completed upper body dressing with set up.) Lower Body Dressing (QC): 4 (Pt required SBA when standing to hike pants and underwear up. Pt utilized sock aid to don socks.) Toileting Hygiene (QC): 7 (Pt declined using the toilet at this time.) Toilet Transfer (QC): 7 Pt required SBA with walker to transfer from recliner to shower bench. Pt declined using the toilet. Pt sat on a chair after shower to comb hair. Other Treatment Pt ambulated with walker to rehab common area and required CGA for safety. Pt had oxygen on 2L no SOB noted. Pt took one brief break while going back to her room, OT checked her oxygen sat 97%. Pt seated in her recliner, call light/ phone in reach. Nurse in room giving medications. Education OT Patient Education: Energy conservation, Modified ADL techniques, Progress toward Goal/Update tx plan, Purpose of tx/functional activities, Reviewed precautions, Rehab process, Safety issues, Transfer techniques, Use of adapted equipment Teaching Recipient: Patient Teaching Methods: Demonstration, Discussion Response to Teaching: Verbalize Understanding, Return Demonstration OT Short Term Goals Short Term Goals Grooming(FIM): 6 Upper Body Dressing(FIM): 4 (met) Lower Body Dressing(FIM): 3 (met) Additional Short Term Goals: 1-Demonstrate ADL Tasks, 2-Verbalize Understanding, 3-ImproveStrength/Diane 1=Demonstrate adherence to instructed precautions during ADL tasks. 2=Patient will verbalize/demonstrate understanding of assistive devices/modifications for ADL. 3=Patient will improve strength/tolerance for activity to enable patient to perform ADL's. OT Prison Goals City Distribution Clerk Goals Eating (QC): 6 (met) Oral Hygiene (QC): 6 Shower/Bathe Self (QC): 6 Upper Body Dressing (QC): 6 Lower Body Dressing (QC): 6 On/Off Footwear (QC): 6 Toileting Hygiene (QC): 6 Toilet/Commode Transfer (QC): 6 Additional Goals: 1-Demonstrate ADL Tasks, 2-Verbalize Understanding, 3- ImproveStrength/Diane 1=Demonstrate adherence to instructed precautions during ADL tasks. 2=Patient will verbalize/demonstrate understanding of assistive devices/modifications for ADL. 3=Patient will improve strength/tolerance for activity to enable patient to perform ADL's. OT Education/Plan Problem List/Assessment Assessment: Decreased Activ Tolerance, Decreased UE Strength, Impaired I ADL's, Impaired Self-Care Skills Discharge Recommendations Plan/Recommendations: Continue POC Therapy Discharge Recommendati: Post Acute OT Equpiment Recommendations-D/C: Sock Aide Treatment Plan/Plan of Care Treatment,Training & Education: Yes Patient would benefit from OT for education, treatment and training to promote independence in ADL's, mobility, safety and/or upper extremity function for ADL's. Plan of Care: ADL Retraining, Functional Mobility, Group Exercise/Act as Ind, UE Funct Exercise/Act Treatment Duration: Jan 27, 2019 Frequency: At least 5 of 7 days/Wk (IRF) Estimated Hrs Per Day: 1.5 hours per day Agreement: Yes Rehab Potential: Good Time/GCodes Start Time: 08:45 Stop Time: 09:45 Total Time Billed (hr/min): 60 Billed Treatment Time 1, ADL X3 43 Minutes FA X1 17 Minutes DOV BADILLO OT Jan 23, 2019 09:53 POS
[2019-01-23] MEDS: RT-ALBUTEROL/IPRATROPIUM 3 ML (DUONEB) VIAL INH SCH ×2 (09:55→19:07)
--- NOTE | 2019-01-23 11:00 | NUR ---
DOWNSTAIRS FOR MRI.
[2019-01-23] MEDS: HYDROcodone/APAP 10 MG/325 MG (LORTAB) TAB PO PRN (11:36)
--- NOTE | 2019-01-23 11:38 | Diagnostic Imaging Report ---
CLINICAL INDICATION: Patient is having low back pain with a history of previous lumbar spine surgery in the past. EXAM: MRI of the lumbar spine performed without IV contrast. Sagittal T2, sagittal T1, sagittal T2 fat-sat, and axial T2. COMPARISON: X-ray of the lumbar spine dated 01/20/2019. FINDINGS: There is no acute lumbar spine fracture or dislocation. There are postop changes to the lower lumbar spine with L5-S1 laminotomy changes. There is no significant paraspinal fluid collection. The visualized portions of the distal thoracic spinal cord, conus medullaris, and cauda equina nerve roots are unremarkable. The conus medullaris tip is seen at the L2-L3 intervertebral level. Besides postop changes, there is no significant paraspinal soft tissue abnormality. T11-T12: There is a subtle posterior disc bulge and bilateral facet arthropathy. There is mild central canal narrowing. There is mild left neuroforamen narrowing and no significant right neuroforamen narrowing. T12-L1, L1-L2, and L2-L3: There is no significant central spinal canal or neural foramen narrowing. L3-L4: There is a mild diffuse is bulge with superimposed disc spurs extending into the left foraminal region. There is ccgvgagh-op-raoigg bilateral neuroforamen narrowing (left side more than the right). There is mild central canal narrowing. There is bilateral facet arthropathy. L4-L5: There is mild diffuse disc bulge with zbju-yl-ipdbugfr bilateral facet arthropathy. There is no significant central canal narrowing. There is wjym-xt-ntacfeoi bilateral neuroforamen narrowing. L5-S1: There is diffuse disc bulge with moderate loss of intervertebral disc height posteriorly. There are hypertrophic disc spurs anteriorly and to the right and hypertrophic disc spurs extending into the right foraminal region. There is severe bilateral facet arthropathy and hypertrophic bony changes, mostly on the right. There is auhrbfrn-vf-diusou right neuroforamen narrowing and no significant left neuroforamen narrowing. There is no significant central canal narrowing. IMPRESSION: 1: There is multilevel lumbar spine degenerative disease which is most pronounced at the L3-L4 and L5-S1 levels which is described above. 2: Postop changes with L5-S1 laminotomies. 3: There is epwuvjls-ku-qnznrx bilateral L3-L4 neuroforamen narrowing related to facet arthropathy and diffuse disc bulge. 4: There is xtbsgsuu-er-dnmopw right L5-S1 neuroforamen narrowing. Dictated by: Dictated on workstation # [id number]
--- NOTE | 2019-01-23 12:10 | NUR ---
DR. REECE HERE TO SEE PATIENT. STATES SHE HAS SPINAL STENOSIS AND BULGING DISCS AND RECOMMENDS TO SEE DR. SANTAMARIA ON OUTPATIENT.
--- NOTE | 2019-01-23 12:18 | Progress Note - Ortho ---
Progress Note Subjective Date of Exam 01/23/19 Chief Complaint Unchanged HPI/Events since last exam Had MRI this morning Review of Systems Unchanged Allergies: Coded Allergies: morphine (Verified Adverse Reaction, Severe, hallucination, 07/12/18) Home Meds Reported Medications Rivaroxaban (Xarelto) 20 Mg Tablet, 20 MG PO DAILY, TAB 01/10/19 Insulin Detemir (Levemir Flextouch) 100 Unit/1 Ml Insuln.pen, 80 UNITS SC HS, EA 01/10/19 Metformin HCl (Metformin HCl ER) 500 Mg Tab.er.24h, 500 MG PO BID, TAB 01/10/19 Amlodipine Besylate (Amlodipine Besylate) 10 Mg Tablet, 10 MG PO DAILY, TAB 01/10/19 Dulaglutide (Trulicity) 0.75 Mg/0.5 Ml Pen.injctr, 0.75 MG SC [place], EA 01/10/19 Clonidine HCl (Clonidine HCl) 0.1 Mg Tablet, 0.1 MG PO BID, TAB 01/10/19 Dronedarone HCl (Multaq) 400 Mg Tablet, 400 MG PO BID, TAB 01/10/19 Lisinopril (Lisinopril) 20 Mg Tablet, 20 MG PO BID, TAB 01/10/19 Hydralazine HCl (Hydralazine HCl) 10 Mg Tablet, 10 MG PO TID, TAB 01/10/19 Primidone (Mysoline) 50 Mg Tablet, 50 MG PO HS, TAB 07/22/18 Sennosides/Docusate Sodium (Stool Softener-Stimulant Lax) 1 Each Tablet, 1 TAB PO DAILY PRN for CONSTIPATION-6TH LINE, TAB 07/22/18 [place]-3/Dha/Epa/Fish Oil (Fish Oil 1,000 mg Softgel) 1 Each Capsule, 1000 MG PO HS, CAP 03/09/18 Multivitamin-Min/Iron/FA/Vit K (Multi-Day Plus Minerals Tablet) 1 Each Tablet, 1 TAB PO DAILY, TAB 03/09/18 Cyclobenzaprine HCl (Cyclobenzaprine HCl) 10 Mg Tablet, 20 MG PO BID PRN for MUSCLE SPASMS, TAB 03/09/18 Atorvastatin Calcium (Atorvastatin Calcium) 40 Mg Tablet, 40 MG PO HS, TAB 03/09/18 Hydrocodone/Acetaminophen (Hydrocodon-Acetaminophn 10-325) 1 Each Tablet, 1 TAB PO TID PRN for PAIN-MODERATE, TAB 03/05/17 Magnesium Oxide (Magnesium) 400 Mg Tablet, 400 MG PO HS, TAB 03/05/17 Potassium Gluconate (Potassium) 99 Mg Tablet, 99 MG PO DAILY, TAB 03/05/17 Aspirin (Aspirin EC) 81 Mg Tablet.dr, 81 MG PO DAILY, TAB 03/05/17 Gabapentin (Gabapentin) 600 Mg Tablet, 600 MG PO TID, TAB 03/05/17 Insulin Aspart (Novolog Flexpen) 300 Units/3 Ml Solution, SQ TIDAC for SLIDING SCALE, EA USES 1 UNIT FOR EVERY 2 POINTS OVER 100 BS 03/05/17 Pantoprazole Sodium (Pantoprazole Sodium) 40 Mg Tablet.dr, 40 MG PO DAILY, TAB 03/05/17 Isosorbide Mononitrate (Isosorbide Mononitrate ER) 60 Mg Tab, 60 MG PO DAILY, TAB 03/05/17 Fenofibrate,Micronized (Fenofibrate) 134 Mg Capsule, 134 MG PO HS, CAP 03/05/17 Furosemide (Furosemide) 40 Mg Tablet, 40 MG PO DAILY, TAB 03/05/17 Cinnamon Bark (Cinnamon) 500 Mg Capsule, 500 MG PO BID, CAP 03/13/15 Objective Exam Constitutional: [] HEENT: [] Neck: [] Cardiovascular: [] Respiratory: [] Gastrointestinal: [] Genitourinary: [] Skin: [] Back/Spine: [] Extremities: [] Unchanged Neurologic: [] Psychiatric: [] Hematologic/lymphatic/immunologic: [] Vital Signs Vital Signs Date Time Temp Pulse Resp B/P (MAP) Pulse Ox O2 Delivery O2 Flow Rate FiO2 01/23/19 09:55 97 Nasal Cannula 2.00 01/23/19 05:44 36.8 85 18 138/81 (100) 96 NIV CPAP 01/22/19 21:00 Nasal Cannula 2.00 01/22/19 20:38 97 Nasal Cannula 2.00 01/22/19 17:02 36.5 76 20 148/70 (96) 98 Nasal Cannula 2.00 I & O 01/23/19 07:00 Intake Total 5830 ml Balance 5830 ml Lab Results Laboratory Tests 01/22/19 13:46: Glucometer 398H 01/22/19 14:57: Glucometer 356H 11/3/19 16:33: Glucometer 314H 01/22/19 20:28: Glucometer 377H 01/23/19 05:22: White Blood Count 8.2, Red Blood Count 3.32L, Hemoglobin 8.9L, Hematocrit 29L, Mean Corpuscular Volume 88, Mean Corpuscular Hemoglobin 27, Mean Corpuscular Hemoglobin Concent 30L, Red Cell Distribution Width 14.5, Platelet Count 190, Mean Platelet Volume 10.7H, Neutrophils (%) (Auto) 75, Lymphocytes (%) (Auto) 19, Monocytes (%) (Auto) 5, Eosinophils (%) (Auto) 1, Basophils (%) (Auto) 0, Neutrophils # (Auto) 6.1, Lymphocytes # (Auto) 1.6, Monocytes # (Auto) 0.4, Eosinophils # (Auto) 0.1, Basophils # (Auto) 0.0, Sodium Level 137, Potassium Level 4.4, Chloride Level 101, Carbon Dioxide Level 25, Anion Gap 11, Blood Urea Nitrogen 37H, Creatinine 1.63H, Estimat Glomerular Filtration Rate 32, BUN /Creatinine Ratio 23, Glucose Level 231H, Calcium Level 8.7, Corrected Calcium 9.3, Total Bilirubin 0.3, Aspartate Amino Transf (AST/SGOT) 43H, Alanine Aminotransferase (ALT/SGPT) 51, Alkaline Phosphatase 79, Total Protein 6.1L, Albumin 3.2 01/23/19 11:52: Glucometer 210H Assessment and Plan Assessment Unchanged Problem List Unchanged Plan had her MRI this morning which I reviewed. She has multilevel degenerative disc disease with foraminal narrowing and foraminal stenosis. Again I think part of her right hip and thigh pain is coming from her back, apart from her arthritic hip. I recommended she see a spine surgeon and recommended Dr. Messer. She would like to proceed. We'll go ahead and put to referral in. She will probably be here most of the week so we'll make it for after she is discharged. Final Diagonsis Degenerative disc disease, spinal stenosis and foraminal stenosis lumbosacral spine Osteoarthritis right hip Level of the visit: Level 3 Clinical Quality Measures DVT/VTE Risk/Contraindication: Risk Factor Score Per Nursin RFS Level Per Nursing on Admit: 4+=Very High ROGELIO REECE MD Jan 23, 2019 12:18 POS
[2019-01-23 14:09] VITALS: BP 138/81
--- NOTE | 2019-01-23 14:38 | Therapy Group Daily Note ---
Therapy Daily Group Note Patient Education Topic Other List Below (bed mob, TRF skills, pain and the brain educ) Exercises LE Seated Exercise, Sit to/from Stand Session Ratio (pt:therapist): 4:1 Goal of Session: Safety with Transfers, Other (list) (bed mob, painand the bra in and management strategies) Goal Met for this Session: Yes Pt Benefit of Group: F/U Use of Strategies @Home, Increased Functional Safety, Increased Functional Strength, Socialization Other/Notes Pt. participated in group PT OT session this date. Pt. came and went via ambulation with CGA . Pt. was pleasant and social, sharing her name and her favorite place she has traveled. Education focused on bed mobility , sup to side to sit TRFs, sit to stand TRFs, car TRFs and tub bench TRFs all demonstrated with equipment and explanation. Pts. participated, shared their experiences and asked pertinent questions. Pts participated in group exercises sharing the seated exercises they could recall and demonstrating them for others . Sit to stand was broken down and practiced by each participant. Pain management strategies were discussed as well as information derived from "explain pain" topics. Pt. to room after group, in bed with owen at hand, needs met Start Time: 13:00 Stop Time: 14:15 Total Billed Treatment Time: 75 Total Billed Treatment 1,GRP BLU SHEPHERD PERSONAL SUPPORT WORKER Jan 23, 2019 14:37 POS
--- NOTE | 2019-01-23 15:24 | NUR ---
RD FOLLOW-UP PMHx: afib; CAD; hypercholesterolemia; HTN; GERD; chronic constipation; DM; pancreatitis PT INTERACTION: Pt was awake and pleasant during nutrition follow-up. Pt states current appetite is good and has been since last assessment. Note pt avg PO intake is 100% x3d, per chart review. Pt states no issues with n/v since last assessment. Pt states some episodes of constipation since last assessment. Note pt currently on bowel regimen of miralax, bisacodyl, senna, colace, per chart review. ABNORMAL NUTRITION-RELATED LAB VALUES: BUN 37 (h); cr 1.63 (H); glu 231 (H); AST 43 (H); Pro 6.1 (L) Est. kcal needs: 5169-6083 kcal (15-20 kcal/kg) Est. Pro needs: 78-98 g Pro (0.8-1.0 g Pro/kg) PES STATEMENT: Give pt's PO intake, no nutrition diagnosis at this time (NO-1.1) INTERVENTION: Continue with current diet order of CHO 60g/m 3snack diet. MONITOR/EVALUATE: PO Intake; Plan of Care; Hydration Status; Weight Status; Lab Values Germán Azar, MS, RD, LD Ext. 133
[2019-01-23 16:07] VITALS: BP 123/70
[2019-01-23] MEDS: RIVAROXABAN 15 MG TABLET (XARELTO) PO SCH (16:19)
--- NOTE | 2019-01-23 17:00 | NUR ---
CHECKED WITH DR. ESCOBEDO RE: TRULICITY. STATES NOT TO HAVE IT TODAY SINCE HAVING HYPOGLYCEMIA EPISODES. PATIENT DENIES DIZZINESS TODAY. STATES SLEPT WELL AND ABLE TO KEEP CPAP ON ALL NIGHT.
--- NOTE | 2019-01-23 19:21 | NUR ---
bedside report received from ELSIE VIVAR, assume care of pt
[2019-01-23 21:10] VITALS: BP 163/73
[2019-01-23] MEDS: PRIMIDONE 50 MG TAB (MYSOLINE) PO SCH (21:17)
[2019-01-23] MEDS: FENOFIBRATE 134 MG (LOFIBRA) CAPSULE PO SCH (21:17)
--- NOTE | 2019-01-23 21:22 | NUR ---
pt took Enulose & Senokot but refused miralax, fsbs 364 NovoLog 9 units & scheduled Levemir 15 units given with hs snack
[2019-01-24 06:00] VITALS: BP 133/89
[2019-01-24] MEDS: inSUlin ASPART (NovoLOG) 1 UNIT/0.01 ML (CHARGE PER UNIT) SC SCH ×3 (06:19→17:11)
[2019-01-24] MEDS: KCL 10 MEQ TAB (MICRO K) PO SCH (06:19)
--- NOTE | 2019-01-24 07:16 | NUR ---
BEDSIDE REPORT GIVEN TO JESSICA VIVAR
[2019-01-24] MEDS: RT-ALBUTEROL/IPRATROPIUM 3 ML (DUONEB) VIAL INH SCH ×2 (07:50→19:11)
--- NOTE | 2019-01-24 08:15 | NUR ---
DR. ESCOBEDO TO FLOOR WITH ORDERS TO RESUME TRULICITY. INCREASE LEVEMIR TO 40 UNITS SQ HS, DC SSI, AND START NOVOLOG 15 UNITS SQ WITH MEALS.
--- NOTE | 2019-01-24 08:37 | Cardiology Progress Note ---
Subjective Date Seen by Provider: Jan 24, 2019 Time Seen by Provider: 08:36 Subjective/Events-last exam Patient is sitting in a chair, feeling better, no new complaint Review of Systems General: No Chills, No Night Sweats, No Fatigue, No Malaise, No Appetite, No Other HEENT: No Head Aches, No Visual Changes, No Eye Pain, No Ear Pain, No Dysphasia, No Sinus Congestion, No Post Nasal Drip, No Sore Throat, No Other Pulmonary: Dyspnea; No Cough, No Pleuritic Chest Pain, No Other Cardiovascular: No: Chest Pain, Palpitations, Orthopnea, Paroxysmal Noc. Dyspnea, Edema, Lt Headedness, Other Objective-Cardiology Exam Last Set of Vital Signs Vital Signs 01/23/19 01/24/19 01/24/19 14:09 06:00 07:50 Temp 36.8 Pulse 95 Resp 18 B/P (MAP) 133/89 (104) Pulse Ox 96 O2 Delivery Nasal Cannula O2 Flow Rate 2.00 FiO2 28 Capillary Refill : Less Than 3 Seconds I&O Intake and Output 01/24/19 00:00 Intake Total 4220 ml Balance 4220 ml Intake Oral 4220 ml # Voids 7 General: Alert, Oriented X3, Cooperative HEENT: Atraumatic, PERRLA Neck: Supple, No JVD, No Thyromegaly Lungs: Clear to Auscultation, Normal Air Movement Heart: Normal S1, Normal S2, No Murmurs, Other (irregular) Abdomen: Normal Bowel Sounds, Soft, No Tenderness, No Hepatosplenomegaly, No Masses Extremities: No Clubbing, No Cyanosis, Normal Pulses, No Tenderness/Swelling, Other (trace edema) Skin: No Rashes, No Breakdown, No Significant Lesion Neuro: Normal Gait, Normal Speech, Strength at 5/5 X4 Ext, Normal Tone, Sensation Intact Psych/Mental Status: Mental Status NL, Mood NL Results Lab Laboratory Tests Test 01/23/19 11:52 01/23/19 15:24 01/23/19 20:12 01/24/19 05:44 Range/Units Glucometer 210 H 206 H 364 H 205 H 70-110 MG/DL A/P-Cardiology Admission Diagnosis Paroxysmal atrial fibrillation Coronary artery disease Hypertension Hyperlipidemia Assessment/Plan Status post respiratory failure, better at this time, has history of severe COPD with multiple exacerbation. Acute renal failure, slightly worse yesterday, I will stop Lasix and potassium and use it only as needed for swelling Paroxysmal atrial fibrillation, had history of cardioversion, currently in afib, heart rate is controlled. Tolerating medication well. Continue to monitor Sinus node dysfunction with history of severe bradycardia, monitor heart rate closely. Mild elevation in troponin level, no active chest pain, no acute EKG changes, probably due to hypoxemia and small vessel disease. Medical therapy is recommended continue to monitor Type II myocardial infarction secondary to hypoxemia, last cardiac catheterization as described below Coronary artery disease, history of stent placement 2 to the LAD. In August 2013 cardiac cath revealed patent stents to LAD, known to have Taxus 320 mm stent in the mid LAD, proximal to that there was a stent placed in 2011 which is 312 mm Ion stent. Both are patent with 40-50 percent in-stent restenosis. Secondary branch had 90 percent stenosis at the ostium. Small artery, not amendable to intervention. Another cardiac catheterization February 2015 showing patent stents in the proximal LAD with 50 percent stenosis beyond the stent and 50 percent stenosis at the midportion of the LAD small vessel disease distally, moderate 40-50 percent stenosis in the right coronary artery with multiple segment of the proximal, mid and distal portion. Cardiac catheterization done March 05, 2017 revealed severe LAD stenosis beyond the previously known stent 3.0. Successful primary stenting using 3.08 mm ALPINE expanded to 3.5 with excellent results, balloon for in-stent restenosis also was made. Most recent cardiac catheterization done March 09, 2018 revealed patent stent with small vessel disease, no intervention required. continue to monitor [id number] score of 4, yearly risk of stroke without oral anticoagulation is 4 percent. Maintained on Xarelto 15mg. Hypertension, controlled, continue on current medication monitor blood pressure Renal arterial duplex done July 2015 revealed proximal right renal artery not evaluated, other segments of the left renal artery demonstrated no evidence of significant stenosis, continue to monitor Hyperlipidemia, continue to monitor lipids Obstructive sleep apnea, using C Pap, using oxygen as needed Nonobstructive carotid artery stenosis per carotid duplex done in February 2018, continue to monitor. Diabetes mellitus-managed by primary care physician Chronic pain, followed and managed by primary care physician Obesity, BMI is 37, discussed diet and exercise for weight loss. Clinical Quality Measures DVT/VTE Risk/Contraindication: Risk Factor Score Per Nursin RFS Level Per Nursing on Admit: 4+=Very High BOOM MILLER MD Jan 24, 2019 08:37 POS
[2019-01-24] MEDS: PANTOPRAZOLE 40 MG (PROTONIX) TAB PO SCH (08:42)
[2019-01-24] MEDS: ASPIRIN E.C. 81 MG (ECOTRIN) TAB PO SCH (08:42)
[2019-01-24] MEDS: DILTIAZEM 240 MG (CARDIZEM CD) CAP PO SCH (08:42)
[2019-01-24] MEDS: DRONEDARONE TABLET 400 MG TABLET PO SCH ×2 (08:42→21:04)
[2019-01-24] MEDS: GABAPENTIN 600 MG (NEURONTIN) TAB PO SCH ×2 (08:42→21:05)
[2019-01-24] MEDS: ISOSORBIDE MONONITRATE 60 MG (IMDUR) TAB PO SCH (08:42)
[2019-01-24] MEDS: cloNIDine 0.1 MG (CATAPRES) TAB PO SCH ×2 (08:42→21:04)
[2019-01-24] MEDS: LACTULOSE SYRUP 10GM/15ML (ENULOSE) 30ML UDC PO SCH ×2 (08:43→20:06)
[2019-01-24] MEDS: SENNA W/DOCUSATE (SENOKOT S) TABLET PO SCH ×2 (08:43→20:09)
[2019-01-24] MEDS: POLYETHYLENE GLYCOL 17 GM (MIRALAX) PACK PO SCH ×2 (08:43→20:06)
[2019-01-24] MEDS: TRULICITY 0.75 MG/0.5 ML SC SCH (08:50)
[2019-01-24] MEDS: HYDROcodone/APAP 10 MG/325 MG (LORTAB) TAB PO PRN (10:04)
--- NOTE | 2019-01-24 10:46 | Occupational Ther Daily Note ---
OT Current Status-Daily Note Subjective Pt seated in recliner. Pt did not complain of pain. Pt agrees to therapy treatment. Mental Status/Objective Patient Orientation: Person, Place, Time, Situation Attachments: Oxygen ADL-Treatment Therapy Code Descriptions/Definitions Functional [place] Measure: 0=Not Assessed/NA 4=Minimal Assistance 1=Total Assistance 5=Supervision or Setup 2=Maximal Assistance 6=Modified [place] 3=Moderate Assistance 7=Complete IndependenceSCALE: Activities may be completed with or without assistive devices. 7-Aooypauqgp-cyepwrx completes the activity by him/herself with no assistance from a helper. 5-Set-up or Clean-up Assistance-helper sets up or cleans up; patient completes activity. [place] assists only prior to or following the activity. 4-Supervision or Touching Assistance-helper provides verbal cues and/or touching/steadying and/or contact guard assistance as patient completes activity. Assistance may be provided throughout the activity or intermittently. 3-Partial/Moderate Assistance-helper does LESS THAN HALF the effort. [place] lifts, holds or supports trunk or limbs, but provides less than half the effort. 2-Substantial/Maximal Assistance-helper does MORE THAN HALF the effort. [place] lifts or holds trunk or limbs and provides more than half the effort. 5-Wjezczsov-qanzvm does ALL the effort. Patient does none of the effort to complete the activity. Or, the assistance of 2 or more helpers is required for the patient to complete the activity. If activity was not attempted, code reason: 7-Patient Refused. 9-Not Applicable-not attempted and the patient did not perform the activity before the current illness, exacerbation or injury. 10-Not Attempted due to Environmental Limitations-(lack of equipment, weather restraints, etc.). 88-Not Attempted due to Medical Conditions or Safety Concerns. Oral Hygiene (QC): 4 (Pt completed brushing teeth while standing at the sink. Pt required SBA while completing.) Bathing Location: L Arm, R Arm, L Upper Leg, R Upper Leg, L Lower Leg (including foot) (long handle sponge), R Lower Leg (including foot) (long handle sponge), Chest, Abdomen, Buttocks, Perineal Area Shower/Bathe Self (QC): 6 (Using handheld shower, long handled sponge and grabbars, pt completed shower modified independent.) Upper Body Dressing (QC): 5 (Pt required set up to complete upper body dressing.) Lower Body Dressing (QC): 4 (Pt completed lower body dressing while seated. Pt required SBA while in standing to hike pants over hips. Pt utilized sock aid to don sock.) Toileting Hygiene (QC): 7 (Pt declined using toilet at this time.) Toilet Transfer (QC): 7 Other Treatment Pt completed grooming task seated at the sink. Pt later stood up to brush teeth chair behind her. Pt ambulated with walker to the recliner with SBA. Pt participated in fine motor/UE strengthening exercise to improve activity tolerance for functional task. Pt is on 2L oxygen the whole session. Pt seated in recliner call light/phone in reach. All needs met. Education OT Patient Education: Energy conservation, Exercise program, Home exercise program, Modified ADL techniques, Progress toward Goal/Update tx plan, Purpose of tx/functional activities, Rehab process, Use of adapted equipment Teaching Recipient: Patient Teaching Methods: Demonstration Response to Teaching: Verbalize Understanding, Return Demonstration OT Short Term Goals Short Term Goals Grooming(FIM): 6 Upper Body Dressing(FIM): 4 (met) Lower Body Dressing(FIM): 3 (met) Additional Short Term Goals: 1-Demonstrate ADL Tasks, 2-Verbalize Understanding, 3-ImproveStrength/Diane 1=Demonstrate adherence to instructed precautions during ADL tasks. 2=Patient will verbalize/demonstrate understanding of assistive devices/modifications for ADL. 3=Patient will improve strength/tolerance for activity to enable patient to perform ADL's. OT Mcfp Goals Mcfp Goals Eating (QC): 6 (met) Oral Hygiene (QC): 6 Shower/Bathe Self (QC): 6 Upper Body Dressing (QC): 6 Lower Body Dressing (QC): 6 On/Off Footwear (QC): 6 Toileting Hygiene (QC): 6 Toilet/Commode Transfer (QC): 6 Additional Goals: 1-Demonstrate ADL Tasks, 2-Verbalize Understanding, 3- ImproveStrength/Diane 1=Demonstrate adherence to instructed precautions during ADL tasks. 2=Patient will verbalize/demonstrate understanding of assistive devices/modifications for ADL. 3=Patient will improve strength/tolerance for activity to enable patient to perform ADL's. OT Education/Plan Problem List/Assessment Assessment: Decreased Activ Tolerance, Decreased UE Strength, Impaired I ADL's, Impaired Self-Care Skills Discharge Recommendations Plan/Recommendations: Continue POC Therapy Discharge Recommendati: Post Acute OT Equpiment Recommendations-D/C: Sock Aide Treatment Plan/Plan of Care Treatment,Training & Education: Yes Patient would benefit from OT for education, treatment and training to promote independence in ADL's, mobility, safety and/or upper extremity function for ADL's. Plan of Care: ADL Retraining, Functional Mobility, Group Exercise/Act as Ind, UE Funct Exercise/Act Treatment Duration: Jan 27, 2019 Frequency: At least 5 of 7 days/Wk (IRF) Estimated Hrs Per Day: 1.5 hours per day Agreement: Yes Rehab Potential: Good Time/GCodes Start Time: 08:00 Stop Time: 09:00 Total Time Billed (hr/min): 60 Billed Treatment Time 1, ADL x 45 Minutes EX x15 Minutes BONG OZUNA Jan 24, 2019 10:46 POS
--- NOTE | 2019-01-24 10:50 | Physical Therapy Daily Note ---
PT Daily Note-Current Subjective Pt sitting in recliner upon arrival. Pt agrees to PT. Pt reports feeling stronger and less tired when walking. Pain Numeric Pain Scale: 6 Location: Right Location Body Site: Hip Pain Description: Ache, Tightness Comment: Pt reports pain of 6/10 with WB. Mental Status Patient Orientation: Person, Place, Time, Situation Attachments: Oxygen (2L) Transfers SCALE: Activities may be completed with or without assistive devices. 6-Flfaygiuah-nxmzgvv completes the activity by him/herself with no assistance from a helper. 5-Set-up or Clean-up Assistance-helper sets up or cleans up; patient completes activity. [place] assists only prior to or following the activity. 4-Supervision or Touching Assistance-helper provides verbal cues and/or touching/steadying and/or contact guard assistance as patient completes activity. Assistance may be provided throughout the activity or intermittently. 3-Partial/Moderate Assistance-helper does LESS THAN HALF the effort. [place] lifts, holds or supports trunk or limbs, but provides less than half the effort. 2-Substantial/Maximal Assistance-helper does MORE THAN HALF the effort. [place] lifts or holds trunk or limbs and provides more than half the effort. 8-Uyvbyvhlc-hshhgl does ALL the effort. Patient does none of the effort to complete the activity. Or, the assistance of 2 or more helpers is required for the patient to complete the activity. If activity was not attempted, code reason: 7-Patient Refused. 9-Not Applicable-not attempted and the patient did not perform the activity before the current illness, exacerbation or injury. 10-Not Attempted due to Environmental Limitations-(lack of equipment, weather restraints, etc.). 88-Not Attempted due to Medical Conditions or Safety Concerns. Sit to Stand (QC): 5 Weight Bearing Right Lower Extremity: Right Weight Bearing/Tolerated Left Lower Extremity: Left Weight Bearing/Tolerated Gait Training Does the Patient Walk?: Yes Gait: 5 Distance: 150' x2 Walk 10 feet (QC): 5 Walk 50 ft with 2 Turns(QC): 5 Walk 150 ft (QC): 5 Gait Persons Needed: 1 Gait Assistive Device: FWW Pt walks with slow but steady myra, fatigues by end of walk. Exercises Seated Therapy Exercises: Ankle pumps, Long arc quads, Hip flexion, Kicking activity, Hamstring Curls Seated Reps: 20 Standing: Heel/toe raises, 3 way Ex=Flex, Abd, Ext, Marching, Mini squats, Weight shifts Standing Reps: 15 NuStep Minutes: 10 NuStep Workload: 4 Treatments Pt transfers from recliner to standing and ambulates in hallway. Pt uses NuStep for 10m at WL 4. Pt completes Standing Ex at //bars. Pt completes Seated Ex in chair then ambulates in hallway back toward room. Pt takes standing RB as needed. pt returns to recliner to rest at end of Rx with all needs met, call light in hand. Assessment Current Status: Good Progress Pt is improving with strength and activity tolerance. Pt still needs occasional RB for fatigue but decreased in number of RB and length of rest. PT Short Term Goals Short Term Goals Time Frame: Jan 20, 2019 Gait Distance Comment: 150' Gait Assistive Device: FWW (SBA) PT Long-Term Goals Long-Term Goals PT Commercial Lease Administrator Goals Time Frame: Feb 03, 2019 Sit to Lying (QC): 6 Lying-Sitting on Side/Bed(QC): 6 Sit to Stand (QC): 6 Roll Left to Right (QC): 6 Chair/Ayu-tf-Yywou Xfer(QC): 6 Car Transfer (QC): 6 Does the Patient Walk: Yes Distance: 300' Walk 10 feet (QC): 6 Walk 10ft-Uneven Surface(QC): 4 (SBA) Walk 50ft with 2 Turns (QC): 6 Walk 150 ft (QC): 6 Gait Assistive Device: FWW Does the Pt use WC or Scooter?: No # of Steps: 4 1 Step (curb) (QC): 4 (SBA) 4 Steps (QC): 4 (SBA) Picking up an Object (QC): 4 (SBA) PT Plan Problem List Problem List: Activity Tolerance, Gait Treatment/Plan Treatment Plan: Continue Plan of Care Treatment Plan: Bed Mobility, Education, Functional Activity Diane, Functional Strength, Group Therapy, Gait, Safety, Therapeutic Exercise, Transfers Treatment Duration: Feb 03, 2019 Frequency: At least 5 of 7 days/Wk (IRF) Estimated Hrs Per Day: 1.5 hours per day Patient and/or Family Agrees t: Yes Safety Risks/Education Patient Education: Gait Training, Transfer Techniques, Correct Positioning, Safety Issues Teaching Recipient: Patient Teaching Methods: Discussion Response to Teaching: Verbalize Understanding Time/GCodes Time In: 900 Time Out: 1000 Total Billed Treatment Time: 60 Total Billed Treatment 1, GT (20m) & EX x3 (40m) ALEX ASHLEY M[employer] C[employer] TECHNICIAN Jan 24, 2019 10:50 POS
--- NOTE | 2019-01-24 12:00 | PM&R Progress Note ---
Subjective HPI/CC On Admission Date Seen by Provider: Jan 24, 2019 Time Seen by Provider: 07:30 CC: Debility Hospital course from med-surg: Pt was admitted to the ICU from the ER for shortness of breath and chest pain with deep breathing. She was started on IV steroids, antibiotics, and placed on Vapotherm with a BiPAP at night. She improved after a couple days in the ICU and was moved to med/surg after stopping Vapotherm and beginning 3L O2 nasal cannula while continuing BiPAP at night. She continued to improve reporting no trouble breathing while receiving DuoNeb treatments, nasal cannula O2, and BiPAP at night. She did feel extremely wobbly trying to stand and walking was very di fficult requiring a lot of assistance from staff. She was recommended and evaluated for the Rehab unit to help with her recovery. She was discharged very willing and motivated to enter the Rehab unit. HPI: Patient is adjusting well to the IRF protocols. Very weak and tearful yesterday in PT when ambulating. Slow recovery predicted so I ordered 03/10 due to her severe weakness and difficulty coping. Patient's creatinine did increase to 2.75 and h/o CRI and DM nephropathy so will monitor that closely and we have DC abx that could likely be the source. Hyperglycemia from steroids continue and she has severe insulin resistance. Patient denies pain and no BM for several days and cath was DC so will work towards increasing strength and be able to DC home with . Subjective/Events-last exam Elevated blood sugar noted, so will initiate Novolog 15 units before meals and Levemir 40 units at night. Completely off Prednisone now and doing much better. Overall gaining confidence and will be ready for discharge sometime this week. Team conference tomorrow. Maintain on oxygen 12/10 Overall doing very well. Checked meds and labs Conferred with RN Reviewed therapy notes Review of Systems General: Fatigue Pulmonary: Dyspnea Objective Exam Vital Signs Vital Signs Date Time Temp Pulse Resp B/P (MAP) Pulse Ox O2 Delivery O2 Flow Rate FiO2 01/24/19 19:11 98 Nasal Cannula 2.00 01/24/19 18:01 36.6 85 18 161/78 (105) 01/23/19 14:09 28 Capillary Refill : Less Than 3 Seconds General Appearance: No Apparent Distress, WD/WN, Anxious, Chronically ill HEENT: PERRL/EOMI, Normal ENT Inspection, Pharynx Normal, Moist Mucous Membranes Neck: Full Range of Motion, Normal Inspection, Non Tender, Supple Respiratory: Chest Non Tender, Normal Breath Sounds, No Accessory Muscle Use, No Respiratory Distress, Crackles Cardiovascular: No Edema, No Gallop, No JVD, No Murmur, Irregularly Irregular Gastrointestinal: Normal Bowel Sounds, No Organomegaly, No Pulsatile Mass, Non Tender, Soft Back: Normal Inspection, No CVA Tenderness, No Vertebral Tenderness Extremity: Normal Capillary Refill, Normal Inspection, Normal Range of Motion, Non Tender, No Calf Tenderness, No Pedal Edema Neurologic/Psychiatric: Alert, Oriented x3, No Motor/Sensory Deficits (generalized all extremites), Normal Mood/Affect Skin: Normal Color, Warm/Dry Lymphatic: No Adenopathy Results/Procedures Lab Patient resulted labs reviewed. FIM Transfers Therapy Code Descriptions/Definitions Functional [place] Measure: 0=Not Assessed/NA 4=Minimal Assistance 1=Total Assistance 5=Supervision or Setup 2=Maximal Assistance 6=Modified [place] 3=Moderate Assistance 7=Complete IndependenceSCALE: Activities may be completed with or without assistive devices. 9-Uhocorisuu-mctktaa completes the activity by him/herself with no assistance from a helper. 5-Set-up or Clean-up Assistance-helper sets up or cleans up; patient completes activity. [place] assists only prior to or following the activity. 4-Supervision or Touching Assistance-helper provides verbal cues and/or touching/steadying and/or contact guard assistance as patient completes activity. Assistance may be provided throughout the activity or intermittently. 3-Partial/Moderate Assistance-helper does LESS THAN HALF the effort. [place] lifts, holds or supports trunk or limbs, but provides less than half the effort. 2-Substantial/Maximal Assistance-helper does MORE THAN HALF the effort. [place] lifts or holds trunk or limbs and provides more than half the effort. 9-Fwskyszpc-murbbg does ALL the effort. Patient does none of the effort to complete the activity. Or, the assistance of 2 or more helpers is required for the patient to complete the activity. If activity was not attempted, code reason: 7-Patient Refused. 9-Not Applicable-not attempted and the patient did not perform the activity before the current illness, exacerbation or injury. 10-Not Attempted due to Environmental Limitations-(lack of equipment, weather restraints, etc.). 88-Not Attempted due to Medical Conditions or Safety Concerns. Transfers (B, C, W/C) (FIM): 6 Roll Left to Right (QC): 6 Sit to Lying (QC): 6 Sit to Stand (QC): 5 Chair/Dxw-rx-Aejva Xfer(QC): 6 Bed to/from Chair: 6 Car Transfer (QC): 4 (SBA) Gait Training Does the Patient Walk?: Yes Gait (FIM): 5 Distance (FIM): 3=150 ft Distance: 150' x2 Walk 10 feet (QC): 5 Walk 50 ft with 2 Turns(QC): 5 Walk 150 ft (QC): 5 Walking 10ft/uneven surface-QC: 5 Gait Persons Needed: 1 Gait Assistive Device: FWW Wheelchair Training Does the Pt Use a Wheelchair?: No Stair Training Stair Training: Handrails/: 1 handrail #of Steps: 8 1 Step (curb) (QC): 4 4 Steps (QC): 5 12 Steps (QC): 4 (CGA) Stairs: Pattern: Reciprocal (up , step to down) Balance Picking up an Object (QC): 3 (modA. Pt was unstable but able to get to pen and back up with 1 hand on FWW) ADL-Treatment Eating (QC): 6 Oral Hygiene (QC): 4 (Pt completed bru) Bathing Location: L Arm, R Arm, L Upper Leg, R Upper Leg, L Lower Leg (including foot) (long handle sponge), R Lower Leg (including foot) (long handle sponge), Chest, Abdomen, Buttocks, Perineal Area Shower/Bathe Self (QC): 4 (Using grabbars, hand held shower and long handled sponge, pt completed shower independently with supervision.) Upper Body Dressing (QC): 5 (Pt completed upper body dressing with set up.) Lower Body Dressing (QC): 4 (Pt required SBA when standing to hike pants and underwear up. Pt utilized sock aid to don socks.) Toileting Hygiene (QC): 7 (Pt declined using the toilet at this time.) Toilet Transfer (QC): 7 Assessment/Plan Assessment and Plan Assess & Plan/Chief Complaint Assessment: Respiratory failure now improved off biPAP and Vapotherm Severe COPD Former smoker AF OAC ARF on CRI HTN Diabetes ddm-lt-htsbave now improved since titrating down steroids but now having severe hypoglycemia so holding insulin until today at noon starting SSI A AC/HS Right hip pain consulted Dr. Melendez MRI scheduled for today Plan: IRF protocols with 03/10 for expected slow recovery due to severe weakness Monitor oxygen and creatinine O2 Nebs Much improved Dr Luna consultation due to severity of her COPD Improved dramatically Monitor for low sugars Improved renal function now Weaned off steroids Decrease long-acting insulin due to hypoglycemia in the morning Appreciate Dr. Melendez input for right hip pain MRI review (1) COPD (chronic obstructive pulmonary disease) (2) Debility (3) Hyperkalemia Status: Acute (4) Hyperphosphatemia Status: Acute (5) Respiratory failure Status: Acute (6) BiPAP (biphasic positive airway pressure) dependence (7) DVT prophylaxis Status: Acute (8) Elevated AST (SGOT) Status: Acute (9) Acute renal insufficiency Status: Acute (10) Diabetes mellitus, type 2 Status: Chronic (11) CKD (chronic kidney disease) Status: Chronic (12) A-fib (13) GERD (gastroesophageal reflux disease) Status: Chronic (14) HTN (hypertension) Status: Chronic (15) HLD (hyperlipidemia) Status: Chronic ZACK ESCOBEDO DO Jan 24, 2019 12:00 POS
--- NOTE | 2019-01-24 13:46 | Occupational Ther Daily Note ---
OT Current Status-Daily Note Subjective Pt did not complain of pain. Pt reported that she feels better after a nap. Mental Status/Objective Patient Orientation: Person, Place, Time, Situation Attachments: Oxygen ADL-Treatment Therapy Code Descriptions/Definitions Functional [place] Measure: 0=Not Assessed/NA 4=Minimal Assistance 1=Total Assistance 5=Supervision or Setup 2=Maximal Assistance 6=Modified [place] 3=Moderate Assistance 7=Complete IndependenceSCALE: Activities may be completed with or without assistive devices. 4-Khbbamekyy-vzwhkhv completes the activity by him/herself with no assistance from a helper. 5-Set-up or Clean-up Assistance-helper sets up or cleans up; patient completes activity. [place] assists only prior to or following the activity. 4-Supervision or Touching Assistance-helper provides verbal cues and/or touching/steadying and/or contact guard assistance as patient completes activity. Assistance may be provided throughout the activity or intermittently. 3-Partial/Moderate Assistance-helper does LESS THAN HALF the effort. [place] lifts, holds or supports trunk or limbs, but provides less than half the effort. 2-Substantial/Maximal Assistance-helper does MORE THAN HALF the effort. [place] lifts or holds trunk or limbs and provides more than half the effort. 8-Mfnnspflt-whboxd does ALL the effort. Patient does none of the effort to complete the activity. Or, the assistance of 2 or more helpers is required for the patient to complete the activity. If activity was not attempted, code reason: 7-Patient Refused. 9-Not Applicable-not attempted and the patient did not perform the activity before the current illness, exacerbation or injury. 10-Not Attempted due to Environmental Limitations-(lack of equipment, weather restraints, etc.). 88-Not Attempted due to Medical Conditions or Safety Concerns. Pt did not participate in any ADL's this session. Other Treatment Pt transferred from recliner to walker with supervision. Pt ambulated to therapy room with walker and SBA. Pt was on 2 L oxygen. Pt did not complain of SOA the whole session. Pt participated in arm bike exercise mod resistance 15 minutes to improve UE strength/activity tolerance, multiple recovery breaks taken, for functional task. PT took over after session. All needs met. Education OT Patient Education: Energy conservation Teaching Recipient: Patient Teaching Methods: Demonstration Response to Teaching: Verbalize Understanding, Return Demonstration OT Short Term Goals Short Term Goals Grooming(FIM): 6 Upper Body Dressing(FIM): 4 (met) Lower Body Dressing(FIM): 3 (met) Additional Short Term Goals: 1-Demonstrate ADL Tasks, 2-Verbalize Understanding, 3-ImproveStrength/Diane 1=Demonstrate adherence to instructed precautions during ADL tasks. 2=Patient will verbalize/demonstrate understanding of assistive devices/modifications for ADL. 3=Patient will improve strength/tolerance for activity to enable patient to perform ADL's. OT Group Home Goals Fusing Machine Tender Goals Eating (QC): 6 (met) Oral Hygiene (QC): 6 Shower/Bathe Self (QC): 6 Upper Body Dressing (QC): 6 Lower Body Dressing (QC): 6 On/Off Footwear (QC): 6 Toileting Hygiene (QC): 6 Toilet/Commode Transfer (QC): 6 Additional Goals: 1-Demonstrate ADL Tasks, 2-Verbalize Understanding, 3-Improve Strength/Diane 1=Demonstrate adherence to instructed precautions during ADL tasks. 2=Patient will verbalize/demonstrate understanding of assistive devices/modifications for ADL. 3=Patient will improve strength/tolerance for activity to enable patient to pe rform ADL's. OT Education/Plan Problem List/Assessment Assessment: Decreased Activ Tolerance, Decreased UE Strength Discharge Recommendations Plan/Recommendations: Continue POC Therapy Discharge Recommendati: Post Acute OT Treatment Plan/Plan of Care Treatment,Training & Education: Yes Patient would benefit from OT for education, treatment and training to promote independence in ADL's, mobility, safety and/or upper extremity function for ADL's. Plan of Care: Functional Mobility, UE Funct Exercise/Act Treatment Duration: Jan 27, 2019 Frequency: At least 5 of 7 days/Wk (IRF) Estimated Hrs Per Day: 1.5 hours per day Agreement: Yes Rehab Potential: Good Time/GCodes Start Time: 01:00 Stop Time: 01:30 Total Time Billed (hr/min): 30 Billed Treatment Time 1, EX x 30 Minutes BONG OZUNA Jan 24, 2019 13:46 POS
--- NOTE | 2019-01-24 14:32 | Physical Therapy Daily Note ---
PT Daily Note-Current Subjective Pt is just finishing with OT in Therapy Gym upon arrival. Pt agrees to PT. Pain Numeric Pain Scale: 5-Moderate Pain Location: Right Location Body Site: Hip Pain Description: Ache, Tightness Mental Status Patient Orientation: Person, Place, Time, Situation Transfers SCALE: Activities may be completed with or without assistive devices. 3-Nqwystjzro-rttlkun completes the activity by him/herself with no assistance from a helper. 5-Set-up or Clean-up Assistance-helper sets up or cleans up; patient completes activity. [place] assists only prior to or following the activity. 4-Supervision or Touching Assistance-helper provides verbal cues and/or touching/steadying and/or contact guard assistance as patient completes activity. Assistance may be provided throughout the activity or intermittently. 3-Partial/Moderate Assistance-helper does LESS THAN HALF the effort. [place] lifts, holds or supports trunk or limbs, but provides less than half the effort. 2-Substantial/Maximal Assistance-helper does MORE THAN HALF the effort. [place] lifts or holds trunk or limbs and provides more than half the effort. 7-Ingemxrln-byrvnz does ALL the effort. Patient does none of the effort to complete the activity. Or, the assistance of 2 or more helpers is required for the patient to complete the activity. If activity was not attempted, code reason: 7-Patient Refused. 9-Not Applicable-not attempted and the patient did not perform the activity before the current illness, exacerbation or injury. 10-Not Attempted due to Environmental Limitations-(lack of equipment, weather restraints, etc.). 88-Not Attempted due to Medical Conditions or Safety Concerns. Roll Left to Right (QC): 5 Sit to Lying (QC): 5 Sit to Stand (QC): 5 Weight Bearing Right Lower Extremity: Right Weight Bearing/Tolerated Left Lower Extremity: Left Weight Bearing/Tolerated Gait Training Does the Patient Walk?: Yes Gait: 5 Distance: 150' Walk 10 feet (QC): 5 Walk 50 ft with 2 Turns(QC): 5 Walk 150 ft (QC): 5 Gait Persons Needed: 1 Gait Assistive Device: FWW Wheelchair Training Does the Pt Use a Wheelchair?: No Exercises Supine Ex: Ankle pumps, Quad Set, Glut sets, Heel Slides, Straight leg raise, Hip abd/add Supine Reps: 20 Seated Therapy Exercises: Long arc quads, Hip flexion, Kicking activity Seated Reps: 15 Treatments Pt completes Supine Ex on Therapy mat then quick RB followed by Seated Ex. Pt then ambulates back to room to rest in recliner at end of Rx. Pt has all needs met, call light in hand. Assessment Current Status: Good Progress Pt reports R hip is sore after Rx. PT Short Term Goals Short Term Goals Time Frame: Jan 20, 2019 Gait Distance Comment: 150' Gait Assistive Device: FWW (SBA) PT [place] Goals Alf Goals PT Alf Goals Time Frame: Feb 03, 2019 Sit to Lying (QC): 6 Lying-Sitting on Side/Bed(QC): 6 Sit to Stand (QC): 6 Roll Left to Right (QC): 6 Chair/Bef-ck-Ppyrt Xfer(QC): 6 Car Transfer (QC): 6 Does the Patient Walk: Yes Distance: 300' Walk 10 feet (QC): 6 Walk 10ft-Uneven Surface(QC): 4 (SBA) Walk 50ft with 2 Turns (QC): 6 Walk 150 ft (QC): 6 Gait Assistive Device: FWW Does the Pt use WC or Scooter?: No # of Steps: 4 1 Step (curb) (QC): 4 (SBA) 4 Steps (QC): 4 (SBA) Picking up an Object (QC): 4 (SBA) PT Plan Problem List Problem List: Activity Tolerance Treatment/Plan Treatment Plan: Continue Plan of Care Treatment Plan: Bed Mobility, Education, Functional Activity Diane, Functional Strength, Group Therapy, Gait, Safety, Therapeutic Exercise, Transfers Treatment Duration: Feb 03, 2019 Frequency: At least 5 of 7 days/Wk (IRF) Estimated Hrs Per Day: 1.5 hours per day Patient and/or Family Agrees t: Yes Safety Risks/Education Patient Education: Gait Training, Transfer Techniques, Correct Positioning, Safety Issues Teaching Recipient: Patient Teaching Methods: Discussion Response to Teaching: Verbalize Understanding Time/GCodes Time In: 1330 Time Out: 1400 Total Billed Treatment Time: 30 Total Billed Treatment 1, GT (10m) & EX (20m) ALEX ASHLEY ELECTRIC LOCOMOTIVE CRANE OPERATOR Jan 24, 2019 14:32 POS
--- NOTE | 2019-01-24 14:53 | NUR ---
Discussed discharge planning with patient. Patient reports she was able to order a hard sock aid from [employer] and it is already at her house. Patient reports she if feeling well. Patient continues to require supplemental oxygen 24/ and will need a home qualifying oxygen study prior to discharge. Will discuss discharge plan at team meeting tomorrow.
[2019-01-24] MEDS: RIVAROXABAN 15 MG TABLET (XARELTO) PO SCH (17:11)
[2019-01-24 18:01] VITALS: BP 161/78
[2019-01-24] MEDS: FENOFIBRATE 134 MG (LOFIBRA) CAPSULE PO SCH (21:04)
[2019-01-24] MEDS: PRIMIDONE 50 MG TAB (MYSOLINE) PO SCH (21:05)
[2019-01-25 06:00] VITALS: BP 126/78
[2019-01-25] MEDS: RT-ALBUTEROL/IPRATROPIUM 3 ML (DUONEB) VIAL INH SCH ×2 (06:27→20:37)
[2019-01-25] MEDS: inSUlin ASPART (NovoLOG) 1 UNIT/0.01 ML (CHARGE PER UNIT) SC SCH ×3 (06:47→17:10)
--- NOTE | 2019-01-25 08:18 | Cardiology Progress Note ---
Subjective Date Seen by Provider: Jan 25, 2019 Time Seen by Provider: 08:14 Subjective/Events-last exam Patient is sitting up in chair. C/o some low back pain, denies any chest pain. Review of Systems General: No Chills, No Night Sweats, No Fatigue, No Malaise, No Appetite, No Other HEENT: No Head Aches, No Ear Pain, No Dysphasia, No Sinus Congestion, No Post Nasal Drip, No Sore Throat, No Other Pulmonary: Dyspnea; No Cough, No Pleuritic Chest Pain, No Other Cardiovascular: No: Chest Pain, Palpitations, Orthopnea, Paroxysmal Noc. Dyspnea, Edema, Lt Headedness, Other Objective-Cardiology Exam Last Set of Vital Signs Vital Signs 01/23/19 01/25/19 01/25/19 01/25/19 14:09 06:00 06:29 09:00 Temp 36.4 Pulse 84 Resp 20 B/P (MAP) 126/78 (94) Pulse Ox 97 O2 Delivery Nasal Cannula O2 Flow Rate 2.00 FiO2 28 Capillary Refill : Less Than 3 Seconds I&O Intake and Output 01/25/19 00:00 Intake Total 6390 ml Balance 6390 ml Intake Oral 6390 ml # Voids 7 # Bowel Movements 2 General: Alert, Oriented X3, Cooperative HEENT: Atraumatic, PERRLA Neck: Supple, No JVD, No Thyromegaly Lungs: Clear to Auscultation, Normal Air Movement Heart: Normal S1, Normal S2, No Murmurs, Other (irregular) Abdomen: Normal Bowel Sounds, Soft, No Tenderness, No Hepatosplenomegaly, No Masses Extremities: No Clubbing, No Cyanosis, Normal Pulses, No Tenderness/Swelling, Other (trace edema) Skin: No Rashes, No Breakdown, No Significant Lesion Neuro: Normal Gait, Normal Speech, Strength at 5/5 X4 Ext, Normal Tone, Sensation Intact Psych/Mental Status: Mental Status NL, Mood NL A/P-Cardiology Admission Diagnosis Paroxysmal atrial fibrillation Coronary artery disease Hypertension Hyperlipidemia Assessment/Plan Status post respiratory failure, better at this time, has history of severe COPD with multiple exacerbation. Acute renal failure, improving, continue to monitor. Paroxysmal atrial fibrillation, currently in afib, appears to be more persistent at this time, heart rate is controlled. Tolerating medication well. Continue to monitor Sinus node dysfunction with history of severe bradycardia, monitor heart rate closely. Mild elevation in troponin level, no active chest pain, no acute EKG changes, probably due to hypoxemia and small vessel disease. Medical therapy is recommended continue to monitor Type II myocardial infarction secondary to hypoxemia, last cardiac catheterization as described below Coronary artery disease, history of stent placement 2 to the LAD. In August 2013 cardiac cath revealed patent stents to LAD, known to have Taxus 320 mm stent in the mid LAD, proximal to that there was a stent placed in 2011 which is 312 mm Ion stent. Both are patent with 40-50 percent in-stent restenosis. Secondary branch had 90 percent stenosis at the ostium. Small artery, not amendable to intervention. Another cardiac catheterization February 2015 showing patent stents in the proximal LAD with 50 percent stenosis beyond the stent and 50 percent stenosis at the midportion of the LAD small vessel disease distally, moderate 40-50 percent stenosis in the right coronary artery with multiple segment of the proximal, mid and distal portion. Cardiac catheterization done March 05, 2017 revealed severe LAD stenosis beyond the previously known stent 3.0. Successful primary stenting using 3.08 mm ALPINE expanded to 3.5 with excellent results, balloon for in-stent restenosis also was made. Most recent cardiac catheterization done March 09, 2018 revealed patent stent with small vessel disease, no intervention required. continue to monitor [id number] score of 4, yearly risk of stroke without oral anticoagulation is 4 percent. Maintained on Xarelto 15mg. Hypertension, controlled, continue on current medication monitor blood pressure Renal arterial duplex done July 2015 revealed proximal right renal artery not evaluated, other segments of the left renal artery demonstrated no evidence of significant stenosis, continue to monitor Hyperlipidemia, continue to monitor lipids Obstructive sleep apnea, using C Pap, using oxygen as needed Nonobstructive carotid artery stenosis per carotid duplex done in February 2018, continue to monitor. Diabetes mellitus-managed by primary care physician Chronic back pain, history of lumbar surgery in the past, evaluated by Dr. Melendez during this admission and underwent MRI lumbar spine on 01/23/19 revealing multilevel lumbar spine degenerative disease which is most pronounced at the L3-L4 and L5-S1 levels. Postop changes with L5-S1 laminotomies. Mod xrqcq-dj-cflnjm bilateral L3-L4 neuroforamen narrowing related to facet arthropathy and diffuse disc bulge and sxbywbfr-of-kuhfwz right L5-S1 neuroforamen narrowing. Patient scheduled to see Dr. Ipsen as outpatient. Obesity, BMI is 37, discussed diet and exercise for weight loss. Patient was seen and evaluated with Kaela, examination performed, management plan was discussed, agree with the current scribed note, I made few changes to the note using Italic font Patient is sitting comfortably, no new complaint Lasix is on hold, continue to monitor renal function Continue to monitor blood pressure and heart rate. Clinical Quality Measures DVT/VTE Risk/Contraindication: Risk Factor Score Per Nursin RFS Level Per Nursing on Admit: 4+=Very High Supervisory-Addendum Brief Supervisory Addendum Participated in pt care: history, MDM, physical Personally performed: exam, history, MDM Care discussed with: KAELA HEAD Jan 25, 2019 08:18 BOOM REED MD Jan 25, 2019 15:22 POS
--- NOTE | 2019-01-25 08:46 | PM&R Progress Note ---
Subjective HPI/CC On Admission Date Seen by Provider: Jan 25, 2019 Time Seen by Provider: 08:45 CC: Debility Hospital course from med-surg: Pt was admitted to the ICU from the ER for shortness of breath and chest pain with deep breathing. She was started on IV steroids, antibiotics, and placed on Vapotherm with a BiPAP at night. She improved after a couple days in the ICU and was moved to [facility]/surg after stopping Vapotherm and beginning 3L O2 nasal cannula while continuing BiPAP at night. She continued to improve reporting no trouble breathing while receiving DuoNeb treatments, nasal cannula O2, and BiPAP at night. She did feel extremely wobbly trying to stand and walking was very di fficult requiring a lot of assistance from staff. She was recommended and evaluated for the Rehab unit to help with her recovery. She was discharged very willing and motivated to enter the Rehab unit. HPI: Patient is adjusting well to the IRF protocols. Very weak and tearful yesterday in PT when ambulating. Slow recovery predicted so I ordered 03/10 due to her severe weakness and difficulty coping. Patient's creatinine did increase to 2.75 and h/o CRI and DM nephropathy so will monitor that closely and we have DC abx that could likely be the source. Hyperglycemia from steroids continue and she has severe insulin resistance. Patient denies pain and no BM for several days and cath was DC so will work towards increasing strength and be able to DC home with . Subjective/Events-last exam Novolog 15 units before meals has helped the sugars tremendously Home O2 with the use of an over shoulder carrier will be initiated CPAP has been used every night Home health with PT will be initiated at DC DC planned for 01/28/19 Maintain on oxygen 12/10 Overall doing very well. Checked meds and labs Conferred with RN Reviewed therapy notes Review of Systems General: Fatigue Pulmonary: Dyspnea Objective Exam Vital Signs Vital Signs Date Time Temp Pulse Resp B/P (MAP) Pulse Ox O2 Delivery O2 Flow Rate FiO2 01/26/19 06:55 90 Nasal Cannula 01/26/19 05:14 36.6 72 16 01/25/19 21:00 2.00 01/23/19 14:09 28 Capillary Refill : Less Than 3 Seconds General Appearance: No Apparent Distress, WD/WN, Anxious, Chronically ill HEENT: PERRL/EOMI, Normal ENT Inspection, Pharynx Normal, Moist Mucous Membranes Neck: Full Range of Motion, Normal Inspection, Non Tender, Supple Respiratory: Chest Non Tender, Normal Breath Sounds, No Accessory Muscle Use, No Respiratory Distress, Crackles Cardiovascular: No Edema, No Gallop, No JVD, No Murmur, Irregularly Irregular Gastrointestinal: Normal Bowel Sounds, No Organomegaly, No Pulsatile Mass, Non Tender, Soft Back: Normal Inspection, No CVA Tenderness, No Vertebral Tenderness Extremity: Normal Capillary Refill, Normal Inspection, Normal Range of Motion, Non Tender, No Calf Tenderness, No Pedal Edema Neurologic/Psychiatric: Alert, Oriented x3, No Motor/Sensory Deficits (generalized all extremites), Normal Mood/Affect Skin: Normal Color, Warm/Dry Lymphatic: No Adenopathy Results/Procedures Lab Patient resulted labs reviewed. FIM Transfers Therapy Code Descriptions/Definitions Functional [place] Measure: 0=Not Assessed/NA 4=Minimal Assistance 1=Total Assistance 5=Supervision or Setup 2=Maximal Assistance 6=Modified [place] 3=Moderate Assistance 7=Complete IndependenceSCALE: Activities may be completed with or without assistive devices. 6-Pounaporib-omaynfy completes the activity by him/herself with no assistance from a helper. 5-Set-up or Clean-up Assistance-helper sets up or cleans up; patient completes activity. [place] assists only prior to or following the activity. 4-Supervision or Touching Assistance-helper provides verbal cues and/or touching/steadying and/or contact guard assistance as patient completes activity. Assistance may be provided throughout the activity or intermittently. 3-Partial/Moderate Assistance-helper does LESS THAN HALF the effort. [place] lifts, holds or supports trunk or limbs, but provides less than half the effort. 2-Substantial/Maximal Assistance-helper does MORE THAN HALF the effort. [place] lifts or holds trunk or limbs and provides more than half the effort. 5-Mnejwjbvv-ypntyy does ALL the effort. Patient does none of the effort to complete the activity. Or, the assistance of 2 or more helpers is required for the patient to complete the activity. If activity was not attempted, code reason: 7-Patient Refused. 9-Not Applicable-not attempted and the patient did not perform the activity before the current illness, exacerbation or injury. 10-Not Attempted due to Environmental Limitations-(lack of equipment, weather restraints, etc.). 88-Not Attempted due to Medical Conditions or Safety Concerns. Transfers (B, C, W/C) (FIM): 6 Roll Left to Right (QC): 5 Sit to Lying (QC): 5 Sit to Stand (QC): 5 Chair/Ieh-fd-Yfzrz Xfer(QC): 6 Bed to/from Chair: 6 Car Transfer (QC): 4 (SBA) Gait Training Does the Patient Walk?: Yes Gait (FIM): 5 Distance (FIM): 3=150 ft Distance: 150' Walk 10 feet (QC): 5 Walk 50 ft with 2 Turns(QC): 5 Walk 150 ft (QC): 5 Walking 10ft/uneven surface-QC: 5 Gait Persons Needed: 1 Gait Assistive Device: FWW Wheelchair Training Does the Pt Use a Wheelchair?: No Stair Training Stair Training: Handrails/: 1 handrail #of Steps: 8 1 Step (curb) (QC): 4 4 Steps (QC): 5 12 Steps (QC): 4 (CGA) Stairs: Pattern: Reciprocal (up , step to down) Balance Picking up an Object (QC): 3 (modA. Pt was unstable but able to get to pen and back up with 1 hand on FWW) ADL-Treatment Eating (QC): 6 Oral Hygiene (QC): 4 (Pt completed brushing teeth while standing at the sink. Pt required SBA while completing.) Bathing Location: L Arm, R Arm, L Upper Leg, R Upper Leg, L Lower Leg (including foot) (long handle sponge), R Lower Leg (including foot) (long handle sponge), Chest, Abdomen, Buttocks, Perineal Area Shower/Bathe Self (QC): 6 (Using handheld shower, long handled sponge and grabbars, pt completed shower modified independent.) Upper Body Dressing (QC): 5 (Pt required set up to complete upper body dressing.) Lower Body Dressing (QC): 4 (Pt completed lower body dressing while seated. Pt required SBA while in standing to hike pants over hips. Pt utilized sock aid to don sock.) Toileting Hygiene (QC): 7 (Pt declined using toilet at this time.) Toilet Transfer (QC): 7 Assessment/Plan Assessment and Plan Assess & Plan/Chief Complaint Assessment: Respiratory failure now improved off biPAP and Vapotherm Severe COPD Former smoker AF OAC ARF on CRI HTN Diabetes sfx-jg-txcmegh now improved since titrating down steroids but now having severe hypoglycemia so holding insulin until today at noon starting SSI A AC/HS Right hip pain consulted Dr. Melendez MRI scheduled for today Plan: IRF protocols with 03/10 for expected slow recovery due to severe weakness Monitor oxygen and creatinine O2 Nebs Much improved Dr Luna consultation due to severity of her COPD Improved dramatically Monitor for low sugars Improved renal function now Weaned off steroids Decrease long-acting insulin due to hypoglycemia in the morning Appreciate Dr. Melendez input for right hip pain MRI reviewed DC 01/28/19 (1) COPD (chronic obstructive pulmonary disease) (2) Debility (3) Hyperkalemia Status: Acute (4) Hyperphosphatemia Status: Acute (5) Respiratory failure Status: Acute (6) BiPAP (biphasic positive airway pressure) dependence (7) DVT prophylaxis Status: Acute (8) Elevated AST (SGOT) Status: Acute (9) Acute renal insufficiency Status: Acute (10) Diabetes mellitus, type 2 Status: Chronic (11) CKD (chronic kidney disease) Status: Chronic (12) A-fib (13) GERD (gastroesophageal reflux disease) Status: Chronic (14) HTN (hypertension) Status: Chronic (15) HLD (hyperlipidemia) Status: Chronic ZACK ESCOBEDO DO Jan 25, 2019 08:46 POS
[2019-01-25] MEDS: GABAPENTIN 600 MG (NEURONTIN) TAB PO SCH ×2 (09:49→20:39)
[2019-01-25] MEDS: DILTIAZEM 240 MG (CARDIZEM CD) CAP PO SCH (09:49)
[2019-01-25] MEDS: PANTOPRAZOLE 40 MG (PROTONIX) TAB PO SCH (09:49)
[2019-01-25] MEDS: ASPIRIN E.C. 81 MG (ECOTRIN) TAB PO SCH (09:50)
[2019-01-25] MEDS: SENNA W/DOCUSATE (SENOKOT S) TABLET PO SCH ×2 (09:50→20:39)
[2019-01-25] MEDS: ISOSORBIDE MONONITRATE 60 MG (IMDUR) TAB PO SCH (09:51)
[2019-01-25] MEDS: DRONEDARONE TABLET 400 MG TABLET PO SCH ×2 (09:51→20:39)
[2019-01-25] MEDS: LACTULOSE SYRUP 10GM/15ML (ENULOSE) 30ML UDC PO SCH ×2 (09:51→20:38)
[2019-01-25] MEDS: cloNIDine 0.1 MG (CATAPRES) TAB PO SCH ×2 (09:51→20:39)
[2019-01-25] MEDS: POLYETHYLENE GLYCOL 17 GM (MIRALAX) PACK PO SCH ×2 (09:55→20:40)
--- NOTE | 2019-01-25 10:00 | Physical Therapy Daily Note ---
PT Daily Note-Current Subjective Pt. agrees to Rx. States she is only using 2 L O2 which is exactly where she was at home. Pt. states she feels she could walk without a FWW and wont be able to use one at home b/c her is a hoarder and there is no room to use one. Pt. agreeable to cane trial after LAGUNAS which scored 51/56. Pain Numeric Pain Scale: 3 Location: Right Location Body Site: Hip Pain Description: Ache Mental Status Patient Orientation: Normal For Age Attachments: Oxygen (2L) Transfers SCALE: Activities may be completed with or without assistive devices. 3-Ktsawngowg-hdwrmzb completes the activity by him/herself with no assistance from a helper. 5-Set-up or Clean-up Assistance-helper sets up or cleans up; patient completes activity. [place] assists only prior to or following the activity. 4-Supervision or Touching Assistance-helper provides verbal cues and/or touching/steadying and/or contact guard assistance as patient completes activity. Assistance may be provided throughout the activity or intermittently. 3-Partial/Moderate Assistance-helper does LESS THAN HALF the effort. [place] lifts, holds or supports trunk or limbs, but provides less than half the effort. 2-Substantial/Maximal Assistance-helper does MORE THAN HALF the effort. [place] lifts or holds trunk or limbs and provides more than half the effort. 4-Yluzenqgk-nxotbn does ALL the effort. Patient does none of the effort to complete the activity. Or, the assistance of 2 or more helpers is required for the patient to complete the activity. If activity was not attempted, code reason: 7-Patient Refused. 9-Not Applicable-not attempted and the patient did not perform the activity before the current illness, exacerbation or injury. 10-Not Attempted due to Environmental Limitations-(lack of equipment, weather restraints, etc.). 88-Not Attempted due to Medical Conditions or Safety Concerns. Transfers (B, C, W/C): 6 Roll Left to Right (QC): 6 Sit to Lying (QC): 6 Sit to Stand (QC): 6 Chair/Igz-tc-Lpdfw Xfer(QC): 6 Bed to/from Chair: 6 Car Transfer (QC): 6 Weight Bearing Right Lower Extremity: Right Weight Bearing/Tolerated Left Lower Extremity: Left Weight Bearing/Tolerated Gait Training Does the Patient Walk?: Yes Gait: 6 Walk 10 feet (QC): 6 Walk 50 ft with 2 Turns(QC): 6 Walk 150 ft (QC): 6 Gait Persons Needed: 0 Gait Assistive Device: Cane Single Point gait with FWW 150 ft parish IJANNETH reveals no AD needed but pt. with some SOB issues was trained in use of SPC which seemed very awkward to her today but she states her home is very limited in space due to hoarder who cannot/will not open spaces for her safety. Pt. instructed in swing thru and sequence of cane use Exercises Seated Therapy Exercises: Ankle pumps, Sit to stand, Long arc quads, Hip flexion, Hip abd/add Seated Reps: 12 NuStep Minutes: 10 NuStep Workload: 4 Neuromuscular LAGUNAS completed at 51/56 Assessment Current Status: Good Progress some fatigue and SOB with gait without device but O2 sats 95% on 2 L O2 after 150 gait no device PT Short Term Goals Short Term Goals Time Frame: Jan 20, 2019 Gait Distance Comment: 150' Gait Assistive Device: FWW (SBA) PT Manager Integrated Goals Snf Goals PT Snf Goals Time Frame: Feb 03, 2019 Sit to Lying (QC): 6 Lying-Sitting on Side/Bed(QC): 6 Sit to Stand (QC): 6 Roll Left to Right (QC): 6 Chair/Twu-pz-Wmbrc Xfer(QC): 6 Car Transfer (QC): 6 Does the Patient Walk: Yes Distance: 300' Walk 10 feet (QC): 6 Walk 10ft-Uneven Surface(QC): 4 (SBA) Walk 50ft with 2 Turns (QC): 6 Walk 150 ft (QC): 6 Gait Assistive Device: FWW Does the Pt use WC or Scooter?: No # of Steps: 4 1 Step (curb) (QC): 4 (SBA) 4 Steps (QC): 4 (SBA) Picking up an Object (QC): 4 (SBA) PT Plan Treatment/Plan Treatment Plan: Continue Plan of Care Treatment Plan: Bed Mobility, Education, Functional Activity Diane, Functional Strength, Group Therapy, Gait, Safety, Therapeutic Exercise, Transfers Treatment Duration: Feb 03, 2019 Frequency: At least 5 of 7 days/Wk (IRF) Estimated Hrs Per Day: 1.5 hours per day Patient and/or Family Agrees t: Yes Safety Risks/Education Patient Education: Gait Training, Transfer Techniques, Correct Positioning, Disease Process, Safety Issues Teaching Recipient: Patient Teaching Methods: Demonstration, Discussion Response to Teaching: Verbalize Understanding, Return Demonstration, Reinforcement Needed Time/GCodes Time In: 900 Time Out: 1000 Total Billed Treatment Time: 60 Total Billed Treatment 1,NM15m,GT25m,EX20m BLU SHEPHERD SENIOR WEB ARCHITECT Jan 25, 2019 10:00 POS
[2019-01-25] MEDS: HYDROcodone/APAP 10 MG/325 MG (LORTAB) TAB PO PRN ×2 (10:02→15:46)
--- NOTE | 2019-01-25 12:24 | Occupational Ther Daily Note ---
OT Current Status-Daily Note Subjective Pt reported that she was in pain "all over from PT," but just had pain pill. Pt. reported 06/29. Appearance Pt up in recliner. Nurse in room. Pt agrees to therapy treatment. Mental Status/Objective Patient Orientation: Person, Place, Time, Situation Attachments: Oxygen ADL-Treatment Therapy Code Descriptions/Definitions Functional [place] Measure: 0=Not Assessed/NA 4=Minimal Assistance 1=Total Assistance 5=Supervision or Setup 2=Maximal Assistance 6=Modified [place] 3=Moderate Assistance 7=Complete IndependenceSCALE: Activities may be completed with or without assistive devices. 8-Escumlvxki-prljibj completes the activity by him/herself with no assistance from a helper. 5-Set-up or Clean-up Assistance-helper sets up or cleans up; patient completes activity. [place] assists only prior to or following the activity. 4-Supervision or Touching Assistance-helper provides verbal cues and/or touching/steadying and/or contact guard assistance as patient completes activity. Assistance may be provided throughout the activity or intermittently. 3-Partial/Moderate Assistance-helper does LESS THAN HALF the effort. [place] lifts, holds or supports trunk or limbs, but provides less than half the effort. 2-Substantial/Maximal Assistance-helper does MORE THAN HALF the effort. [place] lifts or holds trunk or limbs and provides more than half the effort. 6-Kekajyscp-gvieta does ALL the effort. Patient does none of the effort to complete the activity. Or, the assistance of 2 or more helpers is required for the patient to complete the activity. If activity was not attempted, code reason: 7-Patient Refused. 9-Not Applicable-not attempted and the patient did not perform the activity before the current illness, exacerbation or injury. 10-Not Attempted due to Environmental Limitations-(lack of equipment, weather restraints, etc.). 88-Not Attempted due to Medical Conditions or Safety Concerns. Oral Hygiene (QC): 6 (Pt completed oral hygine independently while standing at the sink.) Bathing Location: L Arm, R Arm, L Upper Leg, R Upper Leg, L Lower Leg (including foot) (long handle sponge), R Lower Leg (including foot) (long handle sponge), Chest, Abdomen, Buttocks, Perineal Area Shower/Bathe Self (QC): 5 (After set up, pt completed shower independently.) Upper Body Dressing (QC): 6 (Pt was independent with upper body dressing.) Lower Body Dressing (QC): 6 (Pt completed lower body dressing independently. Pt utilized sock aid to don compression socks. ) Toileting Hygiene (QC): 7 (Pt declined using toilet at this time.) Toilet Transfer (QC): 7 Using grabber,shower bench and long handle sponge, pt completed shower with modified independence. Pt utilized walker to stand while hiking pants up over hips. Pt demonstrated ability to complete shower and dressing independently with AE. Pt completed grooming tasks seated at the sink, standing while brushing teeth. Other Treatment Pt ambulated with Mod I using walker to the closet and to the drawers to pick clean clothes for ADL task. Pt hung her clothes on the walker and ambulated to the shower. Pt was able to manage oxygen tubing all through the session. After shower, pt ambulated to the laundry room with Mod I and put her laundry in the wash. Pt is on 2L oxygen. No complaint of SOA. Pt in room seated in her recliner at end of session. Call light/phone in reach. All needs met in the room. Education OT Patient Education: Energy conservation, Modified ADL techniques, Progress toward Goal/Update tx plan, Purpose of tx/functional activities, Reviewed precautions, Rehab process, Transfer techniques, Use of adapted equipment Teaching Recipient: Patient Teaching Methods: Demonstration, Discussion Response to Teaching: Verbalize Understanding, Return Demonstration OT Short Term Goals Short Term Goals Grooming(FIM): 6 Upper Body Dressing(FIM): 4 (met) Lower Body Dressing(FIM): 3 (met) Additional Short Term Goals: 1-Demonstrate ADL Tasks, 2-Verbalize Understanding, 3-ImproveStrength/Diane 1=Demonstrate adherence to instructed precautions during ADL tasks. 2=Patient will verbalize/demonstrate understanding of assistive devices/modifications for ADL. 3=Patient will improve strength/tolerance for activity to enable patient to perform ADL's. OT Fci Goals Fci Goals Eating (QC): 6 (met) Oral Hygiene (QC): 6 Shower/Bathe Self (QC): 6 Upper Body Dressing (QC): 6 Lower Body Dressing (QC): 6 On/Off Footwear (QC): 6 Toileting Hygiene (QC): 6 Toilet/Commode Transfer (QC): 6 Additional Goals: 1-Demonstrate ADL Tasks, 2-Verbalize Understanding, 3- ImproveStrength/Diane 1=Demonstrate adherence to instructed precautions during ADL tasks. 2=Patient will verbalize/demonstrate understanding of assistive devices/modifications for ADL. 3=Patient will improve strength/tolerance for activity to enable patient to perform ADL's. OT Education/Plan Problem List/Assessment Assessment: Decreased Activ Tolerance, Impaired I ADL's, Impaired Self-Care Skills Discharge Recommendations Plan/Recommendations: Continue POC Therapy Discharge Recommendati: Post Acute OT Equpiment Recommendations-D/C: Sock Aide Treatment Plan/Plan of Care Treatment,Training & Education: Yes Patient would benefit from OT for education, treatment and training to promote independence in ADL's, mobility, safety and/or upper extremity function for ADL's. Plan of Care: ADL Retraining, Functional Mobility, Group Exercise/Act as Ind, UE Funct Exercise/Act Treatment Duration: Jan 27, 2019 Frequency: At least 5 of 7 days/Wk (IRF) Estimated Hrs Per Day: 1.5 hours per day Agreement: Yes Rehab Potential: Good Time/GCodes Start Time: 10:00 Stop Time: 11:00 Total Time Billed (hr/min): 60 Billed Treatment Time 1, ADL x 4 60 Minutes DOV BADILLO OT Jan 25, 2019 12:24 POS
[2019-01-25] MEDS: CYCLOBENZAPRINE 10 MG (FLEXERIL) TAB PO PRN (14:13)
--- NOTE | 2019-01-25 14:23 | NUR ---
Weekly Team Conference Met with patient to discuss weekly team conference. Recommendation is for discharge home with spouse on 01/28/19 with [facility] PT and OT. Patient is agreeable to this date. PT started using Hurrycane for ambulation with patient today as a FWW will not fit through the house. Patient reports she is getting used to using the cane, and feels she will be ready for discharge on Wednesday. Patient will need a Hurrycane at discharge. Home qualifying oxygen study test has been ordered for 01/27/19. Patient would like to utilize [facility] in [place] for home oxygen, pending results of study. Patient states she has no preference for home health care provider and will discuss options with her spouse. This worker will follow up with patient on home health care preference tomorrow.
--- NOTE | 2019-01-25 14:26 | Therapy Group Daily Note ---
Therapy Daily Group Note Patient Education Topic Home Safety Exercises LE Seated Exercise, UE Exercise Session Ratio (pt:therapist): 6:2 Goal of Session: Home Safety Strategies, UE/LE Strengthing Goal Met for this Session: Yes Pt Benefit of Group: Contributions to Others, F/U Use of Strategies @Home, Increased Functional Safety, Increased Functional Strength, Improved Cognition, Recognition of Peers, Socialization Other/Notes Pt ambulated using FWW to [facility] for OT/PT group. Group consisted of introductions (name, place living, favorite room), socialization, UE/LE seated exercises and educational topics over home safety environment/adaptive equipment. Pt introduced self appropriately and actively listened to peers. Pt was able to complete UE/LE exercises without difficulty. Pt acknowledged understanding of educational topics with personal stories and strategies used at own home. After therapy, pt lying in bed with call light/phone in reach. All needs met in room. Start Time: 12:55 Stop Time: 14:10 Total Billed Treatment Time: 75 Total Billed Treatment 1-GRP BONG OZUNA Jan 25, 2019 14:26 POS
--- NOTE | 2019-01-25 15:43 | NUR ---
PATIENT WAS WALKED ON ROOM AIR SAT DROPPED TO 87% DURING EXERCISE RECOMMEND 2-3 L DURING ACTIVITY Addendum: 01/25/19 at 1545 by SMILEY VÁSQUEZ RT Amended: Links added.
[2019-01-25 15:50] VITALS: BP 135/74
[2019-01-25] MEDS: RIVAROXABAN 15 MG TABLET (XARELTO) PO SCH (16:55)
--- NOTE | 2019-01-25 17:15 | NUR ---
glucose check before supper, 81. 2 pkgs fauzia with 3/4 ounce pkt peanut butter given @ 1600. glucose recheck @ 1700, up to 132. 15U novolog given with meal. sandwich for bedtime snack stored in fridge. will con't to monitor glucose.
[2019-01-25] MEDS: PRIMIDONE 50 MG TAB (MYSOLINE) PO SCH (20:39)
[2019-01-25] MEDS: FENOFIBRATE 134 MG (LOFIBRA) CAPSULE PO SCH (20:39)
[2019-01-26] MEDS: inSUlin ASPART (NovoLOG) 1 UNIT/0.01 ML (CHARGE PER UNIT) SC SCH ×2 (06:28→12:00)
[2019-01-26] MEDS: RT-ALBUTEROL/IPRATROPIUM 3 ML (DUONEB) VIAL INH SCH ×2 (06:54→22:09)
--- NOTE | 2019-01-26 07:53 | Cardiology Progress Note ---
Subjective Date Seen by Provider: Jan 26, 2019 Time Seen by Provider: 07:49 Subjective/Events-last exam Patient is in a chair, no new complaint, mild pedal edema Review of Systems General: No Chills, No Night Sweats, No Fatigue, No Malaise, No Appetite, No Other HEENT: No Head Aches, No Visual Changes, No Eye Pain, No Ear Pain, No Dysphasia, No Sinus Congestion, No Post Nasal Drip, No Sore Throat, No Other Pulmonary: No Dyspnea, No Cough, No Pleuritic Chest Pain, No Other Cardiovascular: Edema; No: Chest Pain, Palpitations, Orthopnea, Paroxysmal Noc. Dyspnea, Lt Headedness, Other Objective-Cardiology Exam Last Set of Vital Signs Vital Signs 01/23/19 01/25/19 01/25/19 01/26/19 01/26/19 14:09 15:50 21:00 05:14 06:55 Temp 36.6 Pulse 72 Resp 16 B/P (MAP) 135/74 (94) Pulse Ox 90 O2 Delivery Nasal Cannula O2 Flow Rate 2.00 FiO2 28 Capillary Refill : Less Than 3 Seconds I&O Intake and Output 01/26/19 00:00 Intake Total 2540 ml Balance 2540 ml Intake Oral 2540 ml # Voids 7 General: Alert, Oriented X3, Cooperative HEENT: Atraumatic, PERRLA Neck: Supple, No JVD, No Thyromegaly Lungs: Clear to Auscultation, Normal Air Movement Heart: Normal S1, Normal S2, No Murmurs, Other (irregular) Abdomen: Normal Bowel Sounds, Soft, No Tenderness, No Hepatosplenomegaly, No Masses Extremities: No Clubbing, No Cyanosis, Normal Pulses, No Tenderness/Swelling, Other (trace edema) Skin: No Rashes, No Breakdown, No Significant Lesion Neuro: Normal Gait, Normal Speech, Strength at 5/5 X4 Ext, Normal Tone, Sensation Intact Psych/Mental Status: Mental Status NL, Mood NL Results Lab Laboratory Tests Test 01/25/19 11:00 01/25/19 15:46 01/25/19 16:57 01/25/19 20:27 Range/Units Glucometer 115 H 81 132 H 140 H 70-110 MG/DL Test 01/26/19 05:28 Range/Units Glucometer 94 70-110 MG/DL A/P-Cardiology Admission Diagnosis Paroxysmal atrial fibrillation Coronary artery disease Hypertension Hyperlipidemia Assessment/Plan COPD, history of multiple episodes of exacerbation, doing well at this time Acute renal failure, improving, evaluate renal function Paroxysmal atrial fibrillation, currently in afib, appears to be more persistent at this time, heart rate is controlled. Tolerating medication well. Continue to monitor Sinus node dysfunction with history of severe bradycardia, monitor heart rate closely. Mild elevation in troponin level, no active chest pain, no acute EKG changes, probably due to hypoxemia and small vessel disease. Medical therapy is recommended continue to monitor Type II myocardial infarction secondary to hypoxemia, last cardiac catheterization as described below Coronary artery disease, history of stent placement 2 to the LAD. In August 2013 cardiac cath revealed patent stents to LAD, known to have Taxus 320 mm stent in the mid LAD, proximal to that there was a stent placed in 2011 which is 312 mm Ion stent. Both are patent with 40-50 percent in-stent restenosis. Secondary branch had 90 percent stenosis at the ostium. Small artery, not amendable to intervention. Another cardiac catheterization February 2015 showing patent stents in the proximal LAD with 50 percent stenosis beyond the stent and 50 percent stenosis at the midportion of the LAD small vessel disease distally, moderate 40-50 percent stenosis in the right coronary artery with multiple segment of the proximal, mid and distal portion. Cardiac catheterization done March 05, 2017 revealed severe LAD stenosis beyond the previously known stent 3.0. Successful primary stenting using 3.08 mm ALPINE expanded to 3.5 with excellent results, balloon for in-stent restenosis also was made. Most recent cardiac catheterization done March 09, 2018 revealed patent stent with small vessel disease, no intervention required. continue to monitor [id number] score of 4, yearly risk of stroke without oral anticoagulation is 4 percent. Maintained on Xarelto 15mg. Hypertension, controlled, continue on current medication monitor blood pressure Renal arterial duplex done July 2015 revealed proximal right renal artery not evaluated, other segments of the left renal artery demonstrated no evidence of significant stenosis, continue to monitor Hyperlipidemia, continue to monitor lipids Obstructive sleep apnea, using C Pap, using oxygen as needed Nonobstructive carotid artery stenosis per carotid duplex done in February 2018, continue to monitor. Diabetes mellitus-managed by primary care physician Chronic back pain, history of lumbar surgery in the past, evaluated by Dr. Melendez during this admission and underwent MRI lumbar spine on 01/23/19 revealing multilevel lumbar spine degenerative disease which is most pronounced at the L3-L4 and L5-S1 levels. Postop changes with L5-S1 laminotomies. Nwgpnrym-vz-nookji bilateral L3-L4 neuroforamen narrowing related to facet arthropathy and diffuse disc bulge and buxwzlto-fx-ckrhqg right L5-S1 neuroforamen narrowing. Patient scheduled to see Dr. Willis as outpatient. Obesity, BMI is 37, discussed diet and exercise for weight loss. Clinical Quality Measures DVT/VTE Risk/Contraindication: Risk Factor Score Per Nursin RFS Level Per Nursing on Admit: 4+=Very High BOOM MILLER MD Jan 26, 2019 07:53 POS
[2019-01-26] MEDS: ISOSORBIDE MONONITRATE 60 MG (IMDUR) TAB PO SCH (08:57)
[2019-01-26] MEDS: GABAPENTIN 600 MG (NEURONTIN) TAB PO SCH ×2 (08:57→21:33)
[2019-01-26] MEDS: DRONEDARONE TABLET 400 MG TABLET PO SCH ×2 (08:57→21:33)
[2019-01-26] MEDS: ASPIRIN E.C. 81 MG (ECOTRIN) TAB PO SCH (08:57)
[2019-01-26] MEDS: cloNIDine 0.1 MG (CATAPRES) TAB PO SCH ×2 (08:57→21:33)
[2019-01-26] MEDS: SENNA W/DOCUSATE (SENOKOT S) TABLET PO SCH ×2 (08:57→21:33)
[2019-01-26] MEDS: DILTIAZEM 240 MG (CARDIZEM CD) CAP PO SCH (08:57)
[2019-01-26] MEDS: PANTOPRAZOLE 40 MG (PROTONIX) TAB PO SCH (08:57)
[2019-01-26] MEDS: POLYETHYLENE GLYCOL 17 GM (MIRALAX) PACK PO SCH ×2 (08:58→21:32)
[2019-01-26] MEDS: LACTULOSE SYRUP 10GM/15ML (ENULOSE) 30ML UDC PO SCH ×2 (08:59→21:32)
[2019-01-26] MEDS: HYDROcodone/APAP 10 MG/325 MG (LORTAB) TAB PO PRN ×2 (09:07→13:59)
--- NOTE | 2019-01-26 09:55 | Physical Therapy Daily Note ---
PT Daily Note-Current Subjective pt in recliner pre-tx agrees to PT. Pt reports she was told she only has to wear O2 when she is up and walking and is not currently wearing O2. Pre-tx vitals: O2-92%. HR-111BPM Appearance pt in recliner post-tx with feet elevated. pt with call light, room phone, tray table in reach with all needs met at this time. Pt states she wants to leave O2 on for a little bit. Post-tx vials: O2-97%, HR-90BPM Mental Status Patient Orientation: Person, Place, Time, Situation Attachments: Oxygen (2L during ambulation and post-tx) Transfers SCALE: Activities may be completed with or without assistive devices. 1-Vsqrdjxyoa-mkoyrft completes the activity by him/herself with no assistance from a helper. 5-Set-up or Clean-up Assistance-helper sets up or cleans up; patient completes activity. [place] assists only prior to or following the activity. 4-Supervision or Touching Assistance-helper provides verbal cues and/or touching/steadying and/or contact guard assistance as patient completes activity. Assistance may be provided throughout the activity or intermittently. 3-Partial/Moderate Assistance-helper does LESS THAN HALF the effort. [place] lifts, holds or supports trunk or limbs, but provides less than half the effort. 2-Substantial/Maximal Assistance-helper does MORE THAN HALF the effort. [place] lifts or holds trunk or limbs and provides more than half the effort. 7-Brmiormaz-yqtptk does ALL the effort. Patient does none of the effort to complete the activity. Or, the assistance of 2 or more helpers is required for the patient to complete the activity. If activity was not attempted, code reason: 7-Patient Refused. 9-Not Applicable-not attempted and the patient did not perform the activity before the current illness, exacerbation or injury. 10-Not Attempted due to Environmental Limitations-(lack of equipment, weather restraints, etc.). 88-Not Attempted due to Medical Conditions or Safety Concerns. Sit to Stand (QC): 6 Weight Bearing Right Lower Extremity: Right Weight Bearing/Tolerated Left Lower Extremity: Left Weight Bearing/Tolerated Gait Training Distance: 150'x2 Walk 10 feet (QC): 4 (SBA) Walk 50 ft with 2 Turns(QC): 4 (SBA) Walk 150 ft (QC): 4 (SBA) Gait Assistive Device: Cane Single Point ("huricane") pt starts session with a very slow 3 point, step to gait pattern. pt progresses to slight step through R>L still with slow 3 point pattern. Stair Training 4 Steps (QC): 4 (SBA) Stairs: Pattern: Step to with huricane Exercises Standing: Braiding (DB // bars X2), Hip Abduction, Heel/toe raises, Mini squats Standing Reps: 30 (15reps 2 sets) NuStep Minutes: 15 NuStep Workload: 4 Treatments pt performed transfer training, skilled ambulation training, functional strengthening/endurance training, balance training, and education this date. Assessment Current Status: Good Progress pt only using cane for balance purposes and bears little to no weight through the AD. Pt has no LOB or unsteadiness on her feet today. Pt demonstrates 2 times reaching for a surface before stepping which is more of a lack of confidence in herself that a true balance problem. Pt has decreased O2 with ambulation trail without supplemented O2 down to 88 which recovered with O2 turned on. PT Short Term Goals Short Term Goals Time Frame: Jan 20, 2019 Gait Distance Comment: 150' Gait Assistive Device: FWW (SBA) PT Group Home Goals Linux Security Administrator Goals PT Linux Security Administrator Goals Time Frame: Feb 03, 2019 Sit to Lying (QC): 6 Lying-Sitting on Side/Bed(QC): 6 Sit to Stand (QC): 6 Roll Left to Right (QC): 6 Chair/Vpo-jh-Gxjvo Xfer(QC): 6 Car Transfer (QC): 6 Does the Patient Walk: Yes Distance: 300' Walk 10 feet (QC): 6 Walk 10ft-Uneven Surface(QC): 4 (SBA) Walk 50ft with 2 Turns (QC): 6 Walk 150 ft (QC): 6 Gait Assistive Device: FWW Does the Pt use WC or Scooter?: No # of Steps: 4 1 Step (curb) (QC): 4 (SBA) 4 Steps (QC): 4 (SBA) Picking up an Object (QC): 4 (SBA) PT Plan Problem List Problem List: Activity Tolerance, Functional Strength, Safety, Balance, Gait, Transfer, Bed Mobility Treatment/Plan Treatment Plan: Continue Plan of Care Treatment Plan: Bed Mobility, Education, Functional Activity Diane, Functional Strength, Group Therapy, Gait, Safety, Therapeutic Exercise, Transfers Treatment Duration: Feb 03, 2019 Frequency: At least 5 of 7 days/Wk (IRF) Estimated Hrs Per Day: 1.5 hours per day Patient and/or Family Agrees t: Yes Safety Risks/Education Patient Education: Gait Training, Transfer Techniques, Steps, Correct Positioning, Safety Issues Teaching Recipient: Patient Teaching Methods: Demonstration, Discussion Response to Teaching: Return Demonstration, Reinforcement Needed Time/GCodes Time In: 900 Time Out: 1000 Total Billed Treatment Time: 60 Total Billed Treatment 1 visit FA 40' EX 20' FLORINDA SMART PT Jan 26, 2019 09:55 POS
--- NOTE | 2019-01-26 10:05 | PM&R Progress Note ---
Subjective HPI/CC On Admission Date Seen by Provider: Jan 26, 2019 Time Seen by Provider: 08:30 CC: Debility Hospital course from med-surg: Pt was admitted to the ICU from the ER for shortness of breath and chest pain with deep breathing. She was started on IV steroids, antibiotics, and placed on Vapotherm with a BiPAP at night. She improved after a couple days in the ICU and was moved to [facility]/surg after stopping Vapotherm and beginning 3L O2 nasal cannula while continuing BiPAP at night. She continued to improve reporting no trouble breathing while receiving DuoNeb treatments, nasal cannula O2, and BiPAP at night. She did feel extremely wobbly trying to stand and walking was very di fficult requiring a lot of assistance from staff. She was recommended and evaluated for the Rehab unit to help with her recovery. She was discharged very willing and motivated to enter the Rehab unit. HPI: Patient is adjusting well to the IRF protocols. Very weak and tearful yesterday in PT when ambulating. Slow recovery predicted so I ordered 03/10 due to her severe weakness and difficulty coping. Patient's creatinine did increase to 2.75 and h/o CRI and DM nephropathy so will monitor that closely and we have DC abx that could likely be the source. Hyperglycemia from steroids continue and she has severe insulin resistance. Patient denies pain and no BM for several days and cath was DC so will work towards increasing strength and be able to DC home with . Subjective/Events-last exam RT told her to leave off oxygen when she is sitting around and she does not d esat. Home O2 will be modified to get a portable one for ambulation during exertion. Bowels are moving. Dischargeplanned for Wednesday. Decreasing insulin due to low readings. Checked meds and labs Conferred with RN Reviewed therapy notes Review of Systems General: Fatigue Pulmonary: Dyspnea Objective Exam Vital Signs Vital Signs Date Time Temp Pulse Resp B/P (MAP) Pulse Ox O2 Delivery O2 Flow Rate FiO2 01/26/19 16:27 36.4 80 16 115/73 (87) 96 Room Air 01/26/19 09:00 2.00 01/23/19 14:09 28 Capillary Refill : Less Than 3 Seconds General Appearance: No Apparent Distress, WD/WN, Anxious, Chronically ill HEENT: PERRL/EOMI, Normal ENT Inspection, Pharynx Normal, Moist Mucous Membranes Neck: Full Range of Motion, Normal Inspection, Non Tender, Supple Respiratory: Chest Non Tender, Normal Breath Sounds, No Accessory Muscle Use, No Respiratory Distress, Crackles Cardiovascular: No Edema, No Gallop, No JVD, No Murmur, Irregularly Irregular Gastrointestinal: Normal Bowel Sounds, No Organomegaly, No Pulsatile Mass, Non Tender, Soft Back: Normal Inspection, No CVA Tenderness, No Vertebral Tenderness Extremity: Normal Capillary Refill, Normal Inspection, Normal Range of Motion, Non Tender, No Calf Tenderness, No Pedal Edema Neurologic/Psychiatric: Alert, Oriented x3, No Motor/Sensory Deficits (generalized all extremites), Normal Mood/Affect Skin: Normal Color, Warm/Dry Lymphatic: No Adenopathy Results/Procedures Lab Patient resulted labs reviewed. FIM Transfers Therapy Code Descriptions/Definitions Functional [place] Measure: 0=Not Assessed/NA 4=Minimal Assistance 1=Total Assistance 5=Supervision or Setup 2=Maximal Assistance 6=Modified [place] 3=Moderate Assistance 7=Complete IndependenceSCALE: Activities may be completed with or without assistive devices. 5-Ognhoeezep-xasbjsn completes the activity by him/herself with no assistance from a helper. 5-Set-up or Clean-up Assistance-helper sets up or cleans up; patient completes activity. [place] assists only prior to or following the activity. 4-Supervision or Touching Assistance-helper provides verbal cues and/or touching/steadying and/or contact guard assistance as patient completes activity. Assistance may be provided throughout the activity or intermittently. 3-Partial/Moderate Assistance-helper does LESS THAN HALF the effort. [place] lifts, holds or supports trunk or limbs, but provides less than half the effort. 2-Substantial/Maximal Assistance-helper does MORE THAN HALF the effort. [place] lifts or holds trunk or limbs and provides more than half the effort. 0-Ncqskzzio-bqvdey does ALL the effort. Patient does none of the effort to complete the activity. Or, the assistance of 2 or more helpers is required for the patient to complete the activity. If activity was not attempted, code reason: 7-Patient Refused. 9-Not Applicable-not attempted and the patient did not perform the activity be fore the current illness, exacerbation or injury. 10-Not Attempted due to Environmental Limitations-(lack of equipment, weather restraints, etc.). 88-Not Attempted due to Medical Conditions or Safety Concerns. Transfers (B, C, W/C) (FIM): 6 Roll Left to Right (QC): 6 Sit to Lying (QC): 6 Sit to Stand (QC): 6 Chair/Hkh-ci-Gbxku Xfer(QC): 6 Bed to/from Chair: 6 Car Transfer (QC): 6 Gait Training Does the Patient Walk?: Yes Gait (FIM): 6 Distance (FIM): 3=150 ft Distance: 150'x2 Walk 10 feet (QC): 4 (SBA) Walk 50 ft with 2 Turns(QC): 4 (SBA) Walk 150 ft (QC): 4 (SBA) Walking 10ft/uneven surface-QC: 5 Gait Persons Needed: 0 Gait Assistive Device: Cane Single Point ("huricane") Wheelchair Training Does the Pt Use a Wheelchair?: No Stair Training Stair Training: Handrails/: 1 handrail #of Steps: 8 1 Step (curb) (QC): 4 4 Steps (QC): 4 (SBA) 12 Steps (QC): 4 (CGA) Stairs: Pattern: Step to Balance Picking up an Object (QC): 3 (modA. Pt was unstable but able to get to pen and back up with 1 hand on FWW) ADL-Treatment Eating (QC): 6 Oral Hygiene (QC): 6 (Pt completed oral hygine independently while standing at the sink.) Bathing Location: L Arm, R Arm, L Upper Leg, R Upper Leg, L Lower Leg (including foot) (long handle sponge), R Lower Leg (including foot) (long handle sponge), Chest, Abdomen, Buttocks, Perineal Area Shower/Bathe Self (QC): 5 (After set up, pt completed shower independently.) Upper Body Dressing (QC): 6 (Pt was independent with upper body dressing.) Lower Body Dressing (QC): 6 (Pt completed lower body dressing independently. P t utilized sock aid to don compression socks. ) Toileting Hygiene (QC): 7 (Pt declined using toilet at this time.) Toilet Transfer (QC): 7 Assessment/Plan Assessment and Plan Assess & Plan/Chief Complaint Assessment: Respiratory failure now improved off biPAP and Vapotherm Severe COPD Former smoker AF OAC ARF on CRI HTN Diabetes lma-af-tytpgaj now improved since titrating down steroids but now having severe hypoglycemia so holding insulin until today at noon starting SSI A AC/HS Right hip pain consulted Dr. Melendez MRI scheduled for today Plan: IRF protocols with 03/10 for expected slow recovery due to severe weakness Monitor oxygen and creatinine O2 Nebs Much improved Dr Luna consultation due to severity of her COPD Improved dramatically Monitor for low sugars Improved renal function now Weaned off steroids Decrease long-acting insulin due to hypoglycemia in the morning Appreciate Dr. Melendez input for right hip pain MRI reviewed DC 01/28/19 (1) COPD (chronic obstructive pulmonary disease) (2) Debility (3) Hyperkalemia Status: Acute (4) Hyperphosphatemia Status: Acute (5) Respiratory failure Status: Acute (6) BiPAP (biphasic positive airway pressure) dependence (7) DVT prophylaxis Status: Acute (8) Elevated AST (SGOT) Status: Acute (9) Acute renal insufficiency Status: Acute (10) Diabetes mellitus, type 2 Status: Chronic (11) CKD (chronic kidney disease) Status: Chronic (12) A-fib (13) GERD (gastroesophageal reflux disease) Status: Chronic (14) HTN (hypertension) Status: Chronic (15) HLD (hyperlipidemia) Status: Chronic ZACK ESCOBEDO DO Jan 26, 2019 10:05 POS
[2019-01-26] MEDS ORDERED: inSUlin ASPART (NovoLOG) 1 UNIT/0.01 ML (CHARGE PER UNIT) ONE (12:01)
--- NOTE | 2019-01-26 12:38 | Occupational Ther Daily Note ---
OT Current Status-Daily Note Subjective No c/o of pain. Pt reported that she is not supposed to wear oxygen while seated. Nurse aware. Appearance Pt seated in recliner when OT entered the room. Pt agrees to therapy treatment. Mental Status/Objective Patient Orientation: Person, Place, Time, Situation ADL-Treatment Therapy Code Descriptions/Definitions Functional [place] Measure: 0=Not Assessed/NA 4=Minimal Assistance 1=Total Assistance 5=Supervision or Setup 2=Maximal Assistance 6=Modified [place] 3=Moderate Assistance 7=Complete IndependenceSCALE: Activities may be completed with or without assistive devices. 5-Qcrcgvtpuv-pbislwe completes the activity by him/herself with no assistance from a helper. 5-Set-up or Clean-up Assistance-helper sets up or cleans up; patient completes activity. [place] assists only prior to or following the activity. 4-Supervision or Touching Assistance-helper provides verbal cues and/or touc jayce/steadying and/or contact guard assistance as patient completes activity. Assistance may be provided throughout the activity or intermittently. 3-Partial/Moderate Assistance-helper does LESS THAN HALF the effort. [place] lifts, holds or supports trunk or limbs, but provides less than half the effort. 2-Substantial/Maximal Assistance-helper does MORE THAN HALF the effort. [place] lifts or holds trunk or limbs and provides more than half the effort. 1-Qotuaitsc-vxpmqt does ALL the effort. Patient does none of the effort to complete the activity. Or, the assistance of 2 or more helpers is required for the patient to complete the activity. If activity was not attempted, code reason: 7-Patient Refused. 9-Not Applicable-not attempted and the patient did not perform the activity before the current illness, exacerbation or injury. 10-Not Attempted due to Environmental Limitations-(lack of equipment, weather restraints, etc.). 88-Not Attempted due to Medical Conditions or Safety Concerns. Oral Hygiene (QC): 6 (Pt completed oral hygiene standing at the sink independently.) Bathing Location: L Arm, R Arm, L Upper Leg, R Upper Leg, L Lower Leg (including foot), R Lower Leg (including foot), Chest, Abdomen, Buttocks, Perineal Area Shower/Bathe Self (QC): 5 (using grabbars,hand held shower, pt completed shower with set up.) Upper Body Dressing (QC): 6 (Pt was independent with upper body dressing.) Lower Body Dressing (QC): 6 (Pt completed lower body dressing independently. Pt utilized sock aid to don compression socks.) Toileting Hygiene (QC): 7 (Pt declined using the toilet.) Toilet Transfer (QC): 7 Other Treatment Pt ambulated with walker to the closet to picker packer clean clothes. Pt completed shower seated on a shower bench. OT checked pt oxygen without oxygen on, sats at 94%. Pt combed hair while seated on a chair at the sink. Pt ambulated to her recliner with walker. OT rechecked oxygen, sats at 98%. Pt seated with call light/phone in reach. All needs met in the room. Education OT Patient Education: Energy conservation, Instructions to caregiver, Modified ADL techniques, Progress toward Goal/Update tx plan, Purpose of tx/functional activities, Reviewed precautions, Rehab process, Safety issues, Use of adapted equipment Teaching Recipient: Patient Teaching Methods: Demonstration, Discussion Response to Teaching: Verbalize Understanding, Return Demonstration OT Short Term Goals Short Term Goals Grooming(FIM): 6 Upper Body Dressing(FIM): 4 (met) Lower Body Dressing(FIM): 3 (met) Additional Short Term Goals: 1-Demonstrate ADL Tasks, 2-Verbalize Understanding, 3-ImproveStrength/Diane 1=Demonstrate adherence to instructed precautions during ADL tasks. 2=Patient will verbalize/demonstrate understanding of assistive devices/modifications for ADL. 3=Patient will improve strength/tolerance for activity to enable patient to perform ADL's. OT Citrus Fruit Packer Goals Citrus Fruit Packer Goals Eating (QC): 6 (met) Oral Hygiene (QC): 6 Shower/Bathe Self (QC): 6 Upper Body Dressing (QC): 6 Lower Body Dressing (QC): 6 On/Off Footwear (QC): 6 Toileting Hygiene (QC): 6 Toilet/Commode Transfer (QC): 6 Additional Goals: 1-Demonstrate ADL Tasks, 2-Verbalize Understanding, 3- ImproveStrength/Diane 1=Demonstrate adherence to instructed precautions during ADL tasks. 2=Patient will verbalize/demonstrate understanding of assistive devices/modifications for ADL. 3=Patient will improve strength/tolerance for activity to enable patient to perform ADL's. OT Education/Plan Problem List/Assessment Assessment: Decreased Activ Tolerance, Impaired I ADL's, Impaired Self-Care Skills Discharge Recommendations Plan/Recommendations: Continue POC Therapy Discharge Recommendati: Post Acute OT Equpiment Recommendations-D/C: Sock Aide Treatment Plan/Plan of Care Treatment,Training & Education: Yes Patient would benefit from OT for education, treatment and training to promote independence in ADL's, mobility, safety and/or upper extremity function for ADL's. Plan of Care: ADL Retraining, Functional Mobility, Group Exercise/Act as Ind, UE Funct Exercise/Act Treatment Duration: Jan 27, 2019 Frequency: At least 5 of 7 days/Wk (IRF) Estimated Hrs Per Day: 1.5 hours per day Agreement: Yes Rehab Potential: Good Time/GCodes Start Time: 10:00 Stop Time: 11:00 Total Time Billed (hr/min): 60 Billed Treatment Time 1, ADL x 4 DOV BADILLO OT Jan 26, 2019 12:38 POS
--- NOTE | 2019-01-26 13:17 | Physical Therapy Daily Note ---
PT Daily Note-Current Subjective pt in recliner pre-tx agrees to PT. Pt with unrated hip pain and states RN is bringing her pain meds. pre-tx O2-92% HR-110bpm Appearance pt in recliner post-tx with call light, room phone, and tray table in reach with all needs met at this time. post-tx O2-98% HR-101bpm Mental Status Patient Orientation: Person, Place, Time, Situation Attachments: Oxygen (2L) Transfers SCALE: Activities may be completed with or without assistive devices. 9-Borxgkjvac-cqhtgat completes the activity by him/herself with no assistance from a helper. 5-Set-up or Clean-up Assistance-helper sets up or cleans up; patient completes activity. [place] assists only prior to or following the activity. 4-Supervision or Touching Assistance-helper provides verbal cues and/or touching/steadying and/or contact guard assistance as patient completes activity. Assistance may be provided throughout the activity or intermittently. 3-Partial/Moderate Assistance-helper does LESS THAN HALF the effort. [place] lifts, holds or supports trunk or limbs, but provides less than half the effort. 2-Substantial/Maximal Assistance-helper does MORE THAN HALF the effort. [place] lifts or holds trunk or limbs and provides more than half the effort. 8-Ydmzkzfng-cnwmkj does ALL the effort. Patient does none of the effort to complete the activity. Or, the assistance of 2 or more helpers is required for the patient to complete the activity. If activity was not attempted, code reason: 7-Patient Refused. 9-Not Applicable-not attempted and the patient did not perform the activity before the current illness, exacerbation or injury. 10-Not Attempted due to Environmental Limitations-(lack of equipment, weather restraints, etc.). 88-Not Attempted due to Medical Conditions or Safety Concerns. Sit to Stand (QC): 6 Weight Bearing Right Lower Extremity: Right Weight Bearing/Tolerated Left Lower Extremity: Left Weight Bearing/Tolerated Gait Training Distance: 250' Walk 10 feet (QC): 6 Walk 50 ft with 2 Turns(QC): 4 (SBA) Walk 150 ft (QC): 4 (SBA) Gait Assistive Device: FWW pt educated on step through gait. pt ambulating with huricane able to ambulate 250' with 2 point step through gait. Pt has NBOS with increased lateral sway but no LOB. Balance Special Test Comments Pt performed 1minX2 of standing reaching for PT hands in all directions. Pt performed standing on Aerex foam for 1 min Pt performed standing on aerex taking lateral steps using SLS on the stance leg. Treatments pt performed transfer training, skilled ambulation training, balance training, and education this date. Assessment Current Status: Good Progress pt with improved gait pattern this date. pt continues to be limited in distance of ambulation by R hip pain. Pt able to use PLB to control breath and maintains O2 over 95 for all ambulation this date. PT Short Term Goals Short Term Goals Time Frame: Jan 20, 2019 Gait Distance Comment: 150' Gait Assistive Device: FWW (SBA) PT Assisted Goals Director [employer] Goals PT Assisted Goals Time Frame: Feb 03, 2019 Sit to Lying (QC): 6 Lying-Sitting on Side/Bed(QC): 6 Sit to Stand (QC): 6 Roll Left to Right (QC): 6 Chair/Rus-fa-Cenoe Xfer(QC): 6 Car Transfer (QC): 6 Does the Patient Walk: Yes Distance: 300' Walk 10 feet (QC): 6 Walk 10ft-Uneven Surface(QC): 4 (SBA) Walk 50ft with 2 Turns (QC): 6 Walk 150 ft (QC): 6 Gait Assistive Device: FWW Does the Pt use WC or Scooter?: No # of Steps: 4 1 Step (curb) (QC): 4 (SBA) 4 Steps (QC): 4 (SBA) Picking up an Object (QC): 4 (SBA) PT Plan Problem List Problem List: Activity Tolerance, Functional Strength, Safety, Balance, Gait, Transfer, Bed Mobility Treatment/Plan Treatment Plan: Continue Plan of Care Treatment Plan: Bed Mobility, Education, Functional Activity Diane, Functional Strength, Group Therapy, Gait, Safety, Therapeutic Exercise, Transfers Treatment Duration: Feb 03, 2019 Frequency: At least 5 of 7 days/Wk (IRF) Estimated Hrs Per Day: 1.5 hours per day Patient and/or Family Agrees t: Yes Safety Risks/Education Patient Education: Gait Training, Transfer Techniques, Correct Positioning, Safety Issues Teaching Recipient: Patient Teaching Methods: Demonstration, Discussion Response to Teaching: Return Demonstration, Reinforcement Needed Time/GCodes Time In: 1245 Time Out: 1315 Total Billed Treatment Time: 30 Total Billed Treatment 1 visit FA 15' GT 15' FLORINDA SMART PT Jan 26, 2019 13:17 POS
--- NOTE | 2019-01-26 15:14 | Occupational Ther Daily Note ---
OT Current Status-Daily Note Subjective No c/o of pain. Appearance Pt seated in recliner when OT entered the room. Pt agrees to therapy treatment. Mental Status/Objective Patient Orientation: Person, Place, Time, Situation ADL-Treatment Therapy Code Descriptions/Definitions Functional [place] Measure: 0=Not Assessed/NA 4=Minimal Assistance 1=Total Assistance 5=Supervision or Setup 2=Maximal Assistance 6=Modified [place] 3=Moderate Assistance 7=Complete IndependenceSCALE: Activities may be completed with or without assistive devices. 4-Ezljorpyci-cgztnkt completes the activity by him/herself with no assistance from a helper. 5-Set-up or Clean-up Assistance-helper sets up or cleans up; patient completes activity. [place] assists only prior to or following the activity. 4-Supervision or Touching Assistance-helper provides verbal cues and/or touching/steadying and/or contact guard assistance as patient completes activity. Assistance may be provided throughout the activity or intermittently. 3-Partial/Moderate Assistance-helper does LESS THAN HALF the effort. [place] lifts, holds or supports trunk or limbs, but provides less than half the effort. 2-Substantial/Maximal Assistance-helper does MORE THAN HALF the effort. [place] lifts or holds trunk or limbs and provides more than half the effort. 1-Bymgqsewd-mbuysv does ALL the effort. Patient does none of the effort to complete the activity. Or, the assistance of 2 or more helpers is required for the patient to complete the activity. If activity was not attempted, code reason: 7-Patient Refused. 9-Not Applicable-not attempted and the patient did not perform the activity before the current illness, exacerbation or injury. 10-Not Attempted due to Environmental Limitations-(lack of equipment, weather restraints, etc.). 88-Not Attempted due to Medical Conditions or Safety Concerns. Other Treatment Pt did not attempt ADLs this second session. Pt ambulated independently to therapy gym with cane. Pt participated in armbike exercise mod resistant to improve activity tolerance for functional tasks. Pt then participated with UE exercises with min resistance, theraband to increase UE strength and activity t olerance for functional tasks. Pt. completed 3 bilateral UE exercises x 10 reps in all planes. Pt ambulated independently back to the room with cane. OT checked pt oxygen sats at the end of the session. They were 98%. Pt seated in recliner at the end of session. Call light/phone in reach. All needs met in the room. Education OT Patient Education: Energy conservation, Exercise program, Modified ADL techniques, Progress toward Goal/Update tx plan, Purpose of tx/functional activities, Reviewed precautions, Rehab process, Safety issues Teaching Recipient: Patient Teaching Methods: Demonstration, Discussion Response to Teaching: Verbalize Understanding, Return Demonstration OT Short Term Goals Short Term Goals Grooming(FIM): 6 Upper Body Dressing(FIM): 4 (met) Lower Body Dressing(FIM): 3 (met) Additional Short Term Goals: 1-Demonstrate ADL Tasks, 2-Verbalize Understanding, 3-ImproveStrength/Diane 1=Demonstrate adherence to instructed precautions during ADL tasks. 2=Patient will verbalize/demonstrate understanding of assistive devices/modifications for ADL. 3=Patient will improve strength/tolerance for activity to enable patient to perform ADL's. OT Fdc Goals Fdc Goals Eating (QC): 6 (met) Oral Hygiene (QC): 6 Shower/Bathe Self (QC): 6 Upper Body Dressing (QC): 6 Lower Body Dressing (QC): 6 On/Off Footwear (QC): 6 Toileting Hygiene (QC): 6 Toilet/Commode Transfer (QC): 6 Additional Goals: 1-Demonstrate ADL Tasks, 2-Verbalize Understanding, 3-Impr oveStrength/Diane 1=Demonstrate adherence to instructed precautions during ADL tasks. 2=Patient will verbalize/demonstrate understanding of assistive devices/modifications for ADL. 3=Patient will improve strength/tolerance for activity to enable patient to perform ADL's. OT Education/Plan Problem List/Assessment Assessment: Decreased Activ Tolerance, Decreased UE Strength, Impaired I ADL's, Impaired Self-Care Skills Discharge Recommendations Plan/Recommendations: Continue POC Therapy Discharge Recommendati: Post Acute OT Equpiment Recommendations-D/C: Sock Aide Treatment Plan/Plan of Care Treatment,Training & Education: Yes Patient would benefit from OT for education, treatment and training to promote independence in ADL's, mobility, safety and/or upper extremity function for ADL's. Plan of Care: ADL Retraining, Functional Mobility, Group Exercise/Act as Ind, UE Funct Exercise/Act Treatment Duration: Jan 27, 2019 Frequency: At least 5 of 7 days/Wk (IRF) Estimated Hrs Per Day: 1.5 hours per day Agreement: Yes Rehab Potential: Good Time/GCodes Start Time: 14:00 Stop Time: 14:30 Total Time Billed (hr/min): 30 Billed Treatment Time 1,EX x 2 30 Minutes. DOV BADILLO OT Jan 26, 2019 15:14 POS
--- NOTE | 2019-01-26 15:18 | NUR ---
Discussed home health care options with patient. Patient states she would like to utilize [facility] for home health care PT and OT.
[2019-01-26 15:40] VITALS: BP 135/74
[2019-01-26] MEDS ORDERED: inSUlin ASPART (NovoLOG) 1 UNIT/0.01 ML (CHARGE PER UNIT) SC ONE (16:00)
[2019-01-26 16:27] VITALS: BP 115/73
[2019-01-26] MEDS: RIVAROXABAN 15 MG TABLET (XARELTO) PO SCH (17:08)
[2019-01-26] MEDS: PRIMIDONE 50 MG TAB (MYSOLINE) PO SCH (21:34)
[2019-01-26] MEDS: FENOFIBRATE 134 MG (LOFIBRA) CAPSULE PO SCH (21:34)
[2019-01-27 05:37] LABS: ALBUMIN 3.3 GM/DL (3.2-4.5); BILIRUBIN,TOTAL 0.4 MG/DL (0.1-1.0); CALCIUM 8.8 MG/DL (8.5-10.1); CREATININE SERUM 1.36 MG/DL (0.60-1.30); POTASSIUM 4.5 MMOL/L (3.6-5.0); TOTAL PROTEIN 6.2 GM/DL (6.4-8.2)
[2019-01-27 06:22] VITALS: BP 125/73
[2019-01-27] MEDS: inSUlin ASPART (NovoLOG) 1 UNIT/0.01 ML (CHARGE PER UNIT) SC SCH ×3 (06:33→16:39)
[2019-01-27] MEDS: RT-ALBUTEROL/IPRATROPIUM 3 ML (DUONEB) VIAL INH SCH ×2 (08:00→19:22)
--- NOTE | 2019-01-27 08:58 | PM&R Progress Note ---
Subjective HPI/CC On Admission Date Seen by Provider: Jan 27, 2019 Time Seen by Provider: 08:30 CC: Debility Hospital course from med-surg: Pt was admitted to the ICU from the ER for shortness of breath and chest pain with deep breathing. She was started on IV steroids, antibiotics, and placed on Vapotherm with a BiPAP at night. She improved after a couple days in the ICU and was moved to med/surg after stopping Vapotherm and beginning 3L O2 nasal cannula while continuing BiPAP at night. She continued to improve reporting no trouble breathing while receiving DuoNeb treatments, nasal cannula O2, and BiPAP at night. She did feel extremely wobbly trying to stand and walking was very difficult requiring a lot of assistance from staff. She was recommended and evaluated for the Rehab unit to help with her recovery. She was discharged very willing and motivated to enter the Rehab unit. HPI: Patient is adjusting well to the IRF protocols. Very weak and tearful yesterday in PT when ambulating. Slow recovery predicted so I ordered 03/10 due to her severe weakness and difficulty coping. Patient's creatinine did increase to 2.75 and h/o CRI and DM nephropathy so will monitor that closely and we have DC abx that could likely be the source. Hyperglycemia from steroids continue and she has severe insulin resistance. Patient denies pain and no BM for several days and cath was DC so will work towards increasing strength and be able to DC home with . 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 Blood sugars remained very high due to IV steroids that was switched to oral steroids quickly and she was able to participate in all therapies and was able to wean off oxygen at rest but needed oxygen with exertion and was able to participate and be able to return to prior level of functioning and do extremely well along with cardiology and pulmonology consultation and she will b DC on home health. Dr. Willis consult for spinal disease that Dr. Melendez referred and Dr. Luna and Dr. West. Review of Systems General: Fatigue Pulmonary: Dyspnea Objective Exam Vital Signs Vital Signs Date Time Temp Pulse Resp B/P (MAP) Pulse Ox O2 Delivery O2 Flow Rate FiO2 01/27/19 09:00 Nasal Cannula 2.00 01/27/19 06:22 36.6 93 20 125/73 (90) 92 01/23/19 14:09 28 Capillary Refill : Less Than 3 Seconds General Appearance: No Apparent Distress, WD/WN, Anxious, Chronically ill HEENT: PERRL/EOMI, Normal ENT Inspection, Pharynx Normal, Moist Mucous Membranes Neck: Full Range of Motion, Normal Inspection, Non Tender, Supple Respiratory: Chest Non Tender, Normal Breath Sounds, No Accessory Muscle Use, No Respiratory Distress, Crackles Cardiovascular: No Edema, No Gallop, No JVD, No Murmur, Irregularly Irregular Gastrointestinal: Normal Bowel Sounds, No Organomegaly, No Pulsatile Mass, Non Tender, Soft Back: Normal Inspection, No CVA Tenderness, No Vertebral Tenderness Extremity: Normal Capillary Refill, Normal Inspection, Normal Range of Motion, Non Tender, No Calf Tenderness, No Pedal Edema Neurologic/Psychiatric: Alert, Oriented x3, No Motor/Sensory Deficits (generalized all extremites), Normal Mood/Affect Skin: Normal Color, Warm/Dry Lymphatic: No Adenopathy Results/Procedures Lab Laboratory Tests 01/27/19 05:00 Patient resulted labs reviewed. FIM Transfers Therapy Code Descriptions/Definitions Functional [place] Measure: 0=Not Assessed/NA 4=Minimal Assistance 1=Total Assistance 5=Supervision or Setup 2=Maximal Assistance 6=Modified [place] 3=Moderate Assistance 7=Complete IndependenceSCALE: Activities may be completed with or without assistive devices. 8-Tnieoygorq-dlzmkxn completes the activity by him/herself with no assistance from a helper. 5-Set-up or Clean-up Assistance-helper sets up or cleans up; patient completes activity. [place] assists only prior to or following the activity. 4-Supervision or Touching Assistance-helper provides verbal cues and/or touching/steadying and/or contact guard assistance as patient completes activity. Assistance may be provided throughout the activity or intermittently. 3-Partial/Moderate Assistance-helper does LESS THAN HALF the effort. [place] lifts, holds or supports trunk or limbs, but provides less than half the effort. 2-Substantial/Maximal Assistance-helper does MORE THAN HALF the effort. [place] lifts or holds trunk or limbs and provides more than half the effort. 6-Dxubbxglx-xfkvzn does ALL the effort. Patient does none of the effort to complete the activity. Or, the assistance of 2 or more helpers is required for the patient to complete the activity. If activity was not attempted, code reason: 7-Patient Refused. 9-Not Applicable-not attempted and the patient did not perform the activity before the current illness, exacerbation or injury. 10-Not Attempted due to Environmental Limitations-(lack of equipment, weather restraints, etc.). 88-Not Attempted due to Medical Conditions or Safety Concerns. Transfers (B, C, W/C) (FIM): 6 Roll Left to Right (QC): 6 Sit to Lying (QC): 6 Sit to Stand (QC): 6 Chair/Huy-hd-Yipcd Xfer(QC): 6 Bed to/from Chair: 6 Car Transfer (QC): 6 Gait Training Does the Patient Walk?: Yes Gait (FIM): 6 Distance (FIM): 3=150 ft Distance: 250' Walk 10 feet (QC): 6 Walk 50 ft with 2 Turns(QC): 4 (SBA) Walk 150 ft (QC): 4 (SBA) Walking 10ft/uneven surface-QC: 5 Gait Persons Needed: 0 Gait Assistive Device: FWW Wheelchair Training Does the Pt Use a Wheelchair?: No Stair Training Stair Training: Handrails/: 1 handrail #of Steps: 8 1 Step (curb) (QC): 4 4 Steps (QC): 4 (SBA) 12 Steps (QC): 4 (CGA) Stairs: Pattern: Step to Balance Picking up an Object (QC): 3 (modA. Pt was unstable but able to get to pen and back up with 1 hand on FWW) ADL-Treatment Eating (QC): 6 Oral Hygiene (QC): 6 (Pt completed oral hygiene standing at the sink independently.) Bathing Location: L Arm, R Arm, L Upper Leg, R Upper Leg, L Lower Leg (including foot), R Lower Leg (including foot), Chest, Abdomen, Buttocks, Perineal Area Shower/Bathe Self (QC): 5 (using grabbars,hand held shower, pt completed shower with set up.) Upper Body Dressing (QC): 6 (Pt was independent with upper body dressing.) Lower Body Dressing (QC): 6 (Pt completed lower body dressing independently. Pt utilized sock aid to don compression socks.) Toileting Hygiene (QC): 7 (Pt declined using the toilet.) Toilet Transfer (QC): 7 Assessment/Plan Assessment and Plan Assess & Plan/Chief Complaint Assessment: Respiratory failure now improved off biPAP and Vapotherm Severe COPD Former smoker AF OAC ARF on CRI HTN Diabetes edr-ev-ipjufto now improved since titrating down steroids but now having severe hypoglycemia so holding insulin until today at noon starting SSI A AC/HS Right hip pain consulted Dr. Melendez MRI scheduled for today Plan: IRF protocols with 03/10 for expected slow recovery due to severe weakness Monitor oxygen and creatinine O2 Nebs Much improved Dr Luna consultation due to severity of her COPD Improved dramatically Monitor for low sugars Improved renal function now Weaned off steroids Decrease long-acting insulin due to hypoglycemia in the morning Appreciate Dr. Melendez input for right hip pain MRI reviewed DC 01/28/19 (1) COPD (chronic obstructive pulmonary disease) Qualifiers: Qualified Codes: J44.9 - Chronic obstructive pulmonary disease, unspecified (2) Debility (3) Hyperkalemia Status: Acute (4) Hyperphosphatemia Status: Acute (5) Respiratory failure Status: Acute (6) BiPAP (biphasic positive airway pressure) dependence (7) DVT prophylaxis Status: Acute (8) Elevated AST (SGOT) Status: Acute (9) Acute renal insufficiency Status: Acute (10) Diabetes mellitus, type 2 Status: Chronic (11) CKD (chronic kidney disease) Status: Chronic (12) A-fib (13) GERD (gastroesophageal reflux disease) Status: Chronic (14) HTN (hypertension) Status: Chronic (15) HLD (hyperlipidemia) Status: Chronic ZACK ESCOBEDO DO Jan 27, 2019 08:58 POS
[2019-01-27] MEDS ORDERED: INSU100V16 SC (09:00)
[2019-01-27] MEDS ORDERED: IPRA3AMP31 INH (09:00)
[2019-01-27] MEDS ORDERED: DILT240C97 PO (09:00)
[2019-01-27] MEDS ORDERED: INSU100V5 SQ (09:00)
[2019-01-27] MEDS: DILTIAZEM 240 MG (CARDIZEM CD) CAP PO SCH (09:49)
[2019-01-27] MEDS: DRONEDARONE TABLET 400 MG TABLET PO SCH ×2 (09:49→20:58)
[2019-01-27] MEDS: ISOSORBIDE MONONITRATE 60 MG (IMDUR) TAB PO SCH (09:50)
[2019-01-27] MEDS: cloNIDine 0.1 MG (CATAPRES) TAB PO SCH ×2 (09:50→20:58)
[2019-01-27] MEDS: SENNA W/DOCUSATE (SENOKOT S) TABLET PO SCH ×2 (09:50→21:00)
[2019-01-27] MEDS: ASPIRIN E.C. 81 MG (ECOTRIN) TAB PO SCH (09:50)
[2019-01-27] MEDS: GABAPENTIN 600 MG (NEURONTIN) TAB PO SCH ×2 (09:51→20:58)
--- NOTE | 2019-01-27 09:55 | NUR ---
Referral faxed to [facility] for nursing, PT and OT.
[2019-01-27] MEDS: POLYETHYLENE GLYCOL 17 GM (MIRALAX) PACK PO SCH ×2 (09:56→21:00)
[2019-01-27] MEDS: PANTOPRAZOLE 40 MG (PROTONIX) TAB PO SCH (09:56)
[2019-01-27] MEDS: LACTULOSE SYRUP 10GM/15ML (ENULOSE) 30ML UDC PO SCH ×2 (09:57→21:03)
--- NOTE | 2019-01-27 09:57 | Physical Therapy Daily Note ---
PT Daily Note-Current Subjective pt in recliner pre-tx agrees to PT with no pain at this time. Pre-tx vitals O2 84% HR 110bpm. Pt was no wearing O2 when PT entered. O2 was placed pre-tx. Notified RN. Appearance pt in recliner post-tx with feet elevated. room phone, call light, tray table in reach with all needs met at this time. Post-tx vials O2 96% HR 109bpm. Mental Status Patient Orientation: Person, Place, Time, Situation Attachments: Oxygen (2L from nasal canula) Transfers SCALE: Activities may be completed with or without assistive devices. 9-Akpvaodtlr-cvtyxgq completes the activity by him/herself with no assistance from a helper. 5-Set-up or Clean-up Assistance-helper sets up or cleans up; patient completes activity. [place] assists only prior to or following the activity. 4-Supervision or Touching Assistance-helper provides verbal cues and/or touching/steadying and/or contact guard assistance as patient completes activity. Assistance may be provided throughout the activity or intermittently. 3-Partial/Moderate Assistance-helper does LESS THAN HALF the effort. [place] lifts, holds or supports trunk or limbs, but provides less than half the effort. 2-Substantial/Maximal Assistance-helper does MORE THAN HALF the effort. [place] lifts or holds trunk or limbs and provides more than half the effort. 8-Jhnpfyesc-kvypaq does ALL the effort. Patient does none of the effort to complete the activity. Or, the assistance of 2 or more helpers is required for the patient to complete the activity. If activity was not attempted, code reason: 7-Patient Refused. 9-Not Applicable-not attempted and the patient did not perform the activity before the current illness, exacerbation or injury. 10-Not Attempted due to Environmental Limitations-(lack of equipment, weather restraints, etc.). 88-Not Attempted due to Medical Conditions or Safety Concerns. Roll Left to Right (QC): 6 Sit to Lying (QC): 6 Sit to Stand (QC): 6 Chair/Luw-pa-Nakmk Xfer(QC): 6 Car Transfer (QC): 6 Weight Bearing Right Lower Extremity: Right Weight Bearing/Tolerated Left Lower Extremity: Left Weight Bearing/Tolerated Gait Training Does the Patient Walk?: Yes Distance: 350', 150' Walk 10 feet (QC): 6 Walk 50 ft with 2 Turns(QC): 6 Walk 150 ft (QC): 6 Walking 10ft/uneven surface-QC: 6 Gait Assistive Device: Cane Single Point (huricane) pt is indep with ambulating with normal 2 point gait using cane in the L hand. Pt ambulation continues to be limited by R hip pain and SOB. Wheelchair Training Does the Pt Use a Wheelchair?: No Stair Training Stair Training: Handrails/: uses cane #of Steps: 4 1 Step (curb) (QC): 6 4 Steps (QC): 5 12 Steps (QC): 9 Stairs: Pattern: Step to Pt is independent with curb step and is able to ascend/descend one step. Pt requires a helper present for 4 steps this date but requires no assist. Pt covers stairs with step to pattern and for descent pt turns body to the left and leads with the R leg going down sideways. Balance Picking up an Object (QC): 6 Exercises NuStep Minutes: 15 NuStep Workload: 5 Treatments pt performed bed mobility training, transfer training, skilled ambulation training, step training, functional endurance training, and education this date. Assessment Current Status: Good Progress Pt ambulation distance continues to be limited by pain in R hip and SOB with O2 desat. Pt was found sitting in chair without O2 in place with sats of 84% with no SOB. Pt is able to return sats above 92% with 15 seconds of PLB. Pt is independent for ambulation, stairs, transfers, and bed mobility but requires mod stops to catch breath and rest her hip. PT Short Term Goals Short Term Goals Time Frame: Jan 20, 2019 Gait Distance Comment: 150' Gait Assistive Device: FWW (SBA) PT Custodial Goals Outside Installer Apprentice Goals PT Custodial Goals Time Frame: Feb 03, 2019 Sit to Lying (QC): 6 Lying-Sitting on Side/Bed(QC): 6 Sit to Stand (QC): 6 Roll Left to Right (QC): 6 Chair/Iwh-tr-Jzpjq Xfer(QC): 6 Car Transfer (QC): 6 Does the Patient Walk: Yes Distance: 300' Walk 10 feet (QC): 6 Walk 10ft-Uneven Surface(QC): 4 (SBA) Walk 50ft with 2 Turns (QC): 6 Walk 150 ft (QC): 6 Gait Assistive Device: FWW Does the Pt use WC or Scooter?: No # of Steps: 4 1 Step (curb) (QC): 4 (SBA) 4 Steps (QC): 4 (SBA) Picking up an Object (QC): 4 (SBA) PT Plan Problem List Problem List: Activity Tolerance, Functional Strength, Safety, Balance, Gait, Transfer, Bed Mobility Treatment/Plan Treatment Plan: Continue Plan of Care Treatment Plan: Bed Mobility, Education, Functional Activity Diane, Functional Strength, Group Therapy, Gait, Safety, Therapeutic Exercise, Transfers Treatment Duration: Feb 03, 2019 Frequency: At least 5 of 7 days/Wk (IRF) Estimated Hrs Per Day: 1.5 hours per day Patient and/or Family Agrees t: Yes Safety Risks/Education Patient Education: Gait Training, Transfer Techniques, Steps, Correct Positioning, W/C Management, Safety Issues Teaching Recipient: Patient Teaching Methods: Demonstration, Discussion Response to Teaching: Return Demonstration, Reinforcement Needed Discharge Recommendations Equpiment Recommendations-D/C: Straight Cane (huricane), Oxygen (2L) Time/GCodes Time In: 900 Time Out: 1000 Total Billed Treatment Time: 60 Total Billed Treatment 1 visit GT 15' FA 45' FLORINDA SMART PT Jan 27, 2019 09:57 POS
[2019-01-27] MEDS: HYDROcodone/APAP 10 MG/325 MG (LORTAB) TAB PO PRN ×2 (10:24→14:25)
[2019-01-27] MEDS ORDERED: RIVA15TA2 PO (10:31)
--- NOTE | 2019-01-27 10:39 | Cardiology Progress Note ---
Subjective Date Seen by Provider: Jan 27, 2019 Time Seen by Provider: 10:38 Subjective/Events-last exam Patient is sitting in a chair, feeling better, no new complaint Review of Systems General: No Chills, No Night Sweats, No Fatigue, No Malaise, No Appetite, No Other HEENT: No Head Aches, No Visual Changes, No Eye Pain, No Ear Pain, No Dysphasia, No Sinus Congestion, No Post Nasal Drip, No Sore Throat, No Other Pulmonary: No Dyspnea, No Cough, No Pleuritic Chest Pain, No Other Cardiovascular: No: Chest Pain, Palpitations, Orthopnea, Paroxysmal Noc. Dyspnea, Edema, Lt Headedness, Other Objective-Cardiology Exam Last Set of Vital Signs Vital Signs 01/23/19 01/26/19 01/27/19 14:09 22:09 06:22 Temp 36.6 Pulse 93 Resp 20 B/P (MAP) 125/73 (90) Pulse Ox 92 O2 Delivery Room Air O2 Flow Rate 2.00 FiO2 28 Capillary Refill : Less Than 3 Seconds I&O Intake and Output 01/27/19 00:00 Intake Total 3420 ml Balance 3420 ml Intake Oral 3420 ml # Voids 6 # Bowel Movements 1 General: Alert, Oriented X3, Cooperative HEENT: Atraumatic, PERRLA Neck: Supple, No JVD, No Thyromegaly Lungs: Clear to Auscultation, Normal Air Movement Heart: Normal S1, Normal S2, No Murmurs, Other (irregular) Abdomen: Normal Bowel Sounds, Soft, No Tenderness, No Hepatosplenomegaly, No Masses Extremities: No Clubbing, No Cyanosis, Normal Pulses, No Tenderness/Swelling, Other (trace edema) Skin: No Rashes, No Breakdown, No Significant Lesion Neuro: Normal Gait, Normal Speech, Strength at 5/5 X4 Ext, Normal Tone, Sensation Intact Psych/Mental Status: Mental Status NL, Mood NL Results Lab Laboratory Tests 01/27/19 05:00 A/P-Cardiology Admission Diagnosis Paroxysmal atrial fibrillation Coronary artery disease Hypertension Hyperlipidemia Assessment/Plan COPD, history of multiple episodes of exacerbation, doing better, managed by primary care team Acute renal failure, improving, continue to monitor Paroxysmal atrial fibrillation, currently in afib, appears to be more persistent at this time, heart rate is controlled. Tolerating medication well. Continue to monitor Sinus node dysfunction with history of severe bradycardia, monitor heart rate closely. Mild elevation in troponin level, no active chest pain, no acute EKG changes, probably due to hypoxemia and small vessel disease. Medical therapy is recommended continue to monitor Type II myocardial infarction secondary to hypoxemia, last cardiac catheterization as described below Coronary artery disease, history of stent placement 2 to the LAD. In August 2013 cardiac cath revealed patent stents to LAD, known to have Taxus 320 mm stent in the mid LAD, proximal to that there was a stent placed in 2011 which is 312 mm Ion stent. Both are patent with 40-50 percent in-stent restenosis. Secondary branch had 90 percent stenosis at the ostium. Small artery, not amendable to intervention. Another cardiac catheterization February 2015 showing patent stents in the proximal LAD with 50 percent stenosis beyond the stent and 50 percent stenosis at the midportion of the LAD small vessel disease distally, moderate 40-50 percent stenosis in the right coronary artery with multiple segment of the proximal, mid and distal portion. Cardiac catheterization done March 05, 2017 revealed severe LAD stenosis beyond the previously known stent 3.0. Successful primary stenting using 3.08 mm ALPINE expanded to 3.5 with excellent results, balloon for in-stent restenosis also was made. Most recent cardiac catheterization done March 09, 2018 revealed patent stent with small vessel disease, no intervention required. continue to monitor [id number] score of 4, yearly risk of stroke without oral anticoagulation is 4 percent. Maintained on Xarelto 15mg. Hypertension, controlled, continue on current medication monitor blood pressure Renal arterial duplex done July 2015 revealed proximal right renal artery not evaluated, other segments of the left renal artery demonstrated no evidence of significant stenosis, continue to monitor Hyperlipidemia, continue to monitor lipids Obstructive sleep apnea, using C Pap, using oxygen as needed Nonobstructive carotid artery stenosis per carotid duplex done in February 2018, continue to monitor. Diabetes mellitus-managed by primary care physician Chronic back pain, history of lumbar surgery in the past, evaluated by Dr. Melendez during this admission and underwent MRI lumbar spine on 01/23/19 revealing multilevel lumbar spine degenerative disease which is most pronounced at the L3-L4 and L5-S1 levels. Postop changes with L5-S1 laminotomies. Bjosllvb-do-selbeq bilateral L3-L4 neuroforamen narrowing related to facet arthropathy and diffuse disc bulge and lmkncoul-wk-yznvnw right L5-S1 neuroforamen narrowing. Patient scheduled to see Dr. Ipsen as outpatient. Obesity, BMI is 37, discussed diet and exercise for weight loss. Clinical Quality Measures DVT/VTE Risk/Contraindication: Risk Factor Score Per Nursin RFS Level Per Nursing on Admit: 4+=Very High BOOM MILLER MD Jan 27, 2019 10:39 am POS
--- NOTE | 2019-01-27 12:09 | Occupational Ther Daily Note ---
OT Current Status-Daily Note Subjective No c/o of pain. Pt reported that its her last therapy. Appearance Pt seated on the recliner when OT entered the room. Pt agrees to therapy treatment. Mental Status/Objective Patient Orientation: Person, Place, Time, Situation ADL-Treatment Therapy Code Descriptions/Definitions Functional [place] Measure: 0=Not Assessed/NA 4=Minimal Assistance 1=Total Assistance 5=Supervision or Setup 2=Maximal Assistance 6=Modified [place] 3=Moderate Assistance 7=Complete IndependenceSCALE: Activities may be completed with or without assistive devices. 2-Kskbaapzob-idhteri completes the activity by him/herself with no assistance from a helper. 5-Set-up or Clean-up Assistance-helper sets up or cleans up; patient completes activity. [place] assists only prior to or following the activity. 4-Supervision or Touching Assistance-helper provides verbal cues and/or touching/steadying and/or contact guard assistance as patient completes activity. Assistance may be provided throughout the activity or intermittently. 3-Partial/Moderate Assistance-helper does LESS THAN HALF the effort. [place] lifts, holds or supports trunk or limbs, but provides less than half the effort. 2-Substantial/Maximal Assistance-helper does MORE THAN HALF the effort. [place] lifts or holds trunk or limbs and provides more than half the effort. 6-Lueugakzb-avvdso does ALL the effort. Patient does none of the effort to complete the activity. Or, the assistance of 2 or more helpers is required for the patient to complete the activity. If activity was not attempted, code reason: 7-Patient Refused. 9-Not Applicable-not attempted and the patient did not perform the activity before the current illness, exacerbation or injury. 10-Not Attempted due to Environmental Limitations-(lack of equipment, weather restraints, etc.). 88-Not Attempted due to Medical Conditions or Safety Concerns. Oral Hygiene (QC): 6 (Pt completed oral hygiene independently.) Bathing Location: L Arm, R Arm, L Upper Leg, R Upper Leg, L Lower Leg ( including foot), R Lower Leg (including foot), Chest, Abdomen, Buttocks, Perineal Area Shower/Bathe Self (QC): 6 (Pt completed shower independently.) Upper Body Dressing (QC): 6 (Pt was independent with upper body dressing.) Lower Body Dressing (QC): 6 (Pt was independent with lower body dressing.) Toileting Hygiene (QC): 6 (Pt has demonstrated ability to complete hygiene and clothing manipulation using cane and grabbars) Toilet Transfer (QC): 6 (Pt demonstrates the ability to complete transfer using cane and grabbars.) Footwear (QC) 6. Pt utilized sock aid to don compression socks. Pt was independent with donning shoes. Other Treatment Pt ambulated independently with cane in the closet to corn picker clothes. Pt then ambulated to the shower. Pt completed shower while seated on the bench. Pt used grabbars to stand to cleanse buttocks and andreina area. Pt combed hair while seated on the chair at the sink. Pt brushed teeth while standing at the sink. Pt did not have oxygen on. Pt had no c/o of SOA the whole session. Pt ambulated with cane back in the room. Pt seated in recliner call light/ phone in reach. All needs met in the room. Education OT Patient Education: Energy conservation, Progress toward Goal/Update tx plan, Purpose of tx/functional activities, Reviewed precautions, Rehab process, Safety issues, Use of adapted equipment Teaching Recipient: Patient Teaching Methods: Demonstration, Discussion Response to Teaching: Verbalize Understanding, Return Demonstration OT Short Term Goals Short Term Goals Grooming(FIM): 6 Upper Body Dressing(FIM): 4 (met) Lower Body Dressing(FIM): 3 (met) Additional Short Term Goals: 1-Demonstrate ADL Tasks, 2-Verbalize Understanding, 3-ImproveStrength/Diane 1=Demonstrate adherence to instructed precautions during ADL tasks. 2=Patient will verbalize/demonstrate understanding of assistive devices/modifications for ADL. 3=Patient will improve strength/tolerance for activity to enable patient to perform ADL's. OT Jail Goals Packaging Engineer Goals Eating (QC): 6 (met-01/27/2019) Oral Hygiene (QC): 6 (met-01/27/2019) Shower/Bathe Self (QC): 6 (met-01/27/2019) Upper Body Dressing (QC): 6 (met-01/27/2019) Lower Body Dressing (QC): 6 (met-01/27/2019) On/Off Footwear (QC): 6 (met-01/27/2019) Toileting Hygiene (QC): 6 (met-01/27/2019) Toilet/Commode Transfer (QC): 6 (met-01/27/2019) Additional Goals: 1-Demonstrate ADL Tasks, 2-Verbalize Understanding, 3- ImproveStrength/Diane 1=Demonstrate adherence to instructed precautions during ADL tasks. 2=Patient will verbalize/demonstrate understanding of assistive devices/modifications for ADL. 3=Patient will improve strength/tolerance for activity to enable patient to perform ADL's. OT Education/Plan Problem List/Assessment Assessment: Decreased Activ Tolerance Discharge Recommendations Plan/Recommendations: Continue POC Equpiment Recommendations-D/C: Sock Aide Treatment Plan/Plan of Care Treatment,Training & Education: Yes Patient would benefit from OT for education, treatment and training to promote independence in ADL's, mobility, safety and/or upper extremity function for ADL's. Plan of Care: ADL Retraining, Functional Mobility, Group Exercise/Act as Ind, UE Funct Exercise/Act Treatment Duration: Jan 27, 2019 Frequency: At least 5 of 7 days/Wk (IRF) Estimated Hrs Per Day: 1.5 hours per day Agreement: Yes Rehab Potential: Good Time/GCodes Start Time: 08:00 Stop Time: 09:00 Total Time Billed (hr/min): 60 Billed Treatment Time 1, ADL x 4 BONG OZUNA Jan 27, 2019 12:09 POS
--- NOTE | 2019-01-27 12:31 | NUR ---
MASHA discussed with patient. Patient reports she is ready for discharge tomorrow. Signature obtained. Informed patient that [facility] in [place], [place] is able to provide the Hurrycane; however, they are not able to deliver to the hospital. Patient was informed of this, and states her will sheepskin pickler the Hurrycane. Follow-up appointments, dates and times, with Dr. Cabral, Dr. West, Dr. Luna and Dr. Willis given to patient. Patient also informed that referral was sent to [facility] for nursing, PT and OT. Patient verbalized understanding. Awaiting completion of home oxygen study; once completed, will fax results to [facility].
--- NOTE | 2019-01-27 14:37 | NUR ---
PATIENT WALKED FOR 6 MIN. SAT DROPPED TO 82% RECOMMEND 2-4 L/M WHEN EXERCISE Addendum: 01/27/19 at 1438 by SMILEY VÁSQUEZ RT Amended: Links added.
--- NOTE | 2019-01-27 14:37 | Therapy Group Daily Note ---
Therapy Daily Group Note Patient Education Topic Other List Below (winter safety/health) Exercises LE Seated Exercise, UE Exercise Session Ratio (pt:therapist): 3:1 Goal of Session: Education on ARU Expectations, Home Safety Strategies, UE/LE Strengthing Goal Met for this Session: Yes Pt Benefit of Group: Contributions to Others, F/U Use of Strategies @Home, Increased Functional Strength, Improved Cognition, Recognition of Peers, Socialization Other/Notes Pt ambulated using cane to [facility] area for OT/PT group. Group consisted of introductions (name, place, favorite chili ingredient), socialization, pt led UE/LE seated exercises, winter safety in environment and health. Pt introduced self appropriately and actively listened to peers. Pt demonstrated understanding of educational topics by giving personal stories and own strategie s used. Pt then was able to lead one exercise and complete other exercises without difficulty. After therapy, pt sitting in recliner with call light/phone in reach. All needs met in room. Start Time: 13:00 Stop Time: 14:10 Total Billed Treatment Time: 70 Total Billed Treatment 1-GRP BONG OZUNA Jan 27, 2019 14:37 POS
--- NOTE | 2019-01-27 15:33 | NUR ---
Qualifying home oxygen study completed. Orders for home oxygen and home aerosol compressor/nebulizer faxed to [facility] in [place], [place] per patient request.
[2019-01-27 16:00] VITALS: BP 116/71
[2019-01-27] MEDS: RIVAROXABAN 15 MG TABLET (XARELTO) PO SCH (16:40)
[2019-01-27 18:46] VITALS: BP 116/71
[2019-01-27] MEDS: PRIMIDONE 50 MG TAB (MYSOLINE) PO SCH (20:58)
[2019-01-27] MEDS: FENOFIBRATE 134 MG (LOFIBRA) CAPSULE PO SCH (20:58)
[2019-01-28 05:30] VITALS: BP 130/72
[2019-01-28] MEDS: inSUlin ASPART (NovoLOG) 1 UNIT/0.01 ML (CHARGE PER UNIT) SC SCH ×2 (06:39→11:53)
[2019-01-28 08:26] VITALS: BP 154/70
[2019-01-28] MEDS: cloNIDine 0.1 MG (CATAPRES) TAB PO SCH (08:28)
[2019-01-28] MEDS: ASPIRIN E.C. 81 MG (ECOTRIN) TAB PO SCH (08:28)
[2019-01-28] MEDS: DRONEDARONE TABLET 400 MG TABLET PO SCH (08:28)
[2019-01-28] MEDS: ISOSORBIDE MONONITRATE 60 MG (IMDUR) TAB PO SCH (08:28)
[2019-01-28] MEDS: GABAPENTIN 600 MG (NEURONTIN) TAB PO SCH (08:28)
[2019-01-28] MEDS: DILTIAZEM 240 MG (CARDIZEM CD) CAP PO SCH (08:28)
[2019-01-28] MEDS: LACTULOSE SYRUP 10GM/15ML (ENULOSE) 30ML UDC PO SCH (08:30)
[2019-01-28] MEDS: POLYETHYLENE GLYCOL 17 GM (MIRALAX) PACK PO SCH (08:31)
[2019-01-28] MEDS: PANTOPRAZOLE 40 MG (PROTONIX) TAB PO SCH (08:35)
[2019-01-28] MEDS: SENNA W/DOCUSATE (SENOKOT S) TABLET PO SCH (08:35)
--- NOTE | 2019-01-28 09:46 | Discharge Summary ---
Diagnosis/Chief Complaint Date of Admission Jan 13, 2019 at 11:15 Date of Discharge Discharge Date: Jan 28, 2019 Discharge Diagnosis Assessment: Respiratory failure now improved off biPAP and Vapotherm Severe COPD Former smoker AF OAC ARF on CRI HTN Diabetes [id number] now improved since titrating down steroids but now having severe hypoglycemia so holding insulin until today at noon starting SSI A AC/HS Right hip pain consulted Dr. Melendez MRI scheduled for today Plan: IRF protocols with 03/10 for expected slow recovery due to severe weakness Monitor oxygen and creatinine O2 Nebs Much improved Dr Luna consultation due to severity of her COPD Improved dramatically Monitor for low sugars Improved renal function now Weaned off steroids Decrease long-acting insulin due to hypoglycemia in the morning Appreciate Dr. Melendez input for right hip pain MRI reviewed DC 01/28/19 (1) COPD (chronic obstructive pulmonary disease) Qualifiers: Qualified Codes: J44.9 - Chronic obstructive pulmonary disease, unspecified (2) Debility (3) Hyperkalemia Status: Acute (4) Hyperphosphatemia Status: Acute (5) Respiratory failure Status: Acute (6) BiPAP (biphasic positive airway pressure) dependence (7) DVT prophylaxis Status: Acute (8) Elevated AST (SGOT) Status: Acute (9) Acute renal insufficiency Status: Acute (10) Diabetes mellitus, type 2 Status: Chronic (11) CKD (chronic kidney disease) Status: Chronic (12) A-fib (13) GERD (gastroesophageal reflux disease) Status: Chronic (14) HTN (hypertension) Status: Chronic (15) HLD (hyperlipidemia) Status: Chronic Discharge Summary Discharge Physical Examination Allergies: Coded Allergies: morphine (Verified Adverse Reaction, Severe, hallucination, 07/12/18) Vitals & I&Os Vital Signs Date Time Temp Pulse Resp B/P (MAP) Pulse Ox O2 Delivery O2 Flow Rate FiO2 01/28/19 13:34 36.7 88 20 143/85 91 Nasal Cannula 2.00 General Appearance: Alert, Oriented X3, Cooperative Respiratory: Clear to Auscultation Cardiovascular: Regular Rate, Other (IRRR) Abdominal: Normal Bowel Sounds Neuro: Normal Gait, Normal Speech, Strength at 5/5 X4 Ext Psych/Mental Status: Mental Status NL, Mood NL Hospital Course Was the Problem List Reviewed?: Yes Hospital course: Pt had an uneventful hospital course for 16 days in inpatient rehab when 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 Pt did complete antibiotic and IV steroids transitioned to oral steroids for a long taper off and DM was out of control most of the time and finally gained control after steroid discontinued abiding by a sliding scale insulin regimen. Overall she was able to participate in all therapies, was able to make a dramatic improvement to get back to prior level of functioning with use of a walker, oxygen during exertion at 2-4 liters, and maintain her CPAP with oxygen at night. Overall she was able to be discharged in improved condition, close follow-up with PCP and will be monitoring closely in the meantime. Labs (last 24 hrs) Laboratory Tests 01/13/19 17:28: Glucometer 182H 01/13/19 21:09: Glucometer 296H 01/14/19 05:05: Glucometer 100 01/14/19 08:46: White Blood Count 14.3H, Red Blood Count 3.68L, Hemoglobin 9.7L, Hematocrit 32L, Mean Corpuscular Volume 86, Mean Corpuscular Hemoglobin 26, Mean Corpuscular Hemoglobin Concent 31L, Red Cell Distribution Width 14.7H, Platelet Count 349, Mean Platelet Volume 10.6H, Neutrophils (%) (Auto) 80H, Lymphocytes (%) (Auto) 14, Monocytes (%) (Auto) 6, Eosinophils (%) (Auto) 0, Basophils (%) (Auto) 0, Neutrophils # (Auto) 11.5H, Lymphocytes # (Auto) 1.9, Monocytes # (Auto) 0.8, Eosinophils # (Auto) 0.0, Basophils # (Auto) 0.0, Neutrophils % (Manual) 81, Lymphocytes % (Manual) 11, Monocytes % (Manual) 6, Band Neutrophils 2, Toxic Granulation 1+, Blood Morphology Comment NORMAL, Sodium Level 135, Potassium Level 4.9, Chloride Level 100, Carbon Dioxide Level 19L, Anion Gap 16H, Blood Urea Nitrogen 70H, Creatinine 2.08H, Estimat Glomerular Filtration Rate 24, BUN/Creatinine Ratio 34, Glucose Level 289H, Calcium Level 9.4, Corrected Ca lcium 9.8, Total Bilirubin 0.3, Aspartate Amino Transf (AST/SGOT) 51H, Alanine Aminotransferase (ALT/SGPT) 37, Alkaline Phosphatase 91, Total Protein 7.7, Albumin 3.5 01/14/19 09:52: Glucometer 257H 10/26/19 14:41: Glucometer 97 01/14/19 20:29: Glucometer 386H 01/15/19 05:07: Glucometer 94 01/15/19 11:03: Glucometer 266H 01/15/19 15:00: Glucometer 148H 01/15/19 19:37: Glucometer 251H 01/16/19 04:50: White Blood Count 11.2H, Red Blood Count 3.68L, Hemoglobin 9.8L, Hematocrit 32L, Mean Corpuscular Volume 86, Mean Corpuscular Hemoglobin 27, Mean Corpuscular Hemoglobin Concent 31L, Red Cell Distribution Width 14.8H, Platelet Count 288, Mean Platelet Volume 10.4, Neutrophils (%) (Auto) 83H, Lymphocytes (%) (Auto) 11L, Monocytes (%) (Auto) 6, Eosinophils (%) (Auto) 0, Basophils (%) (Auto) 0, Neutrophils # (Auto) 9.3H, Lymphocytes # (Auto) 1.2, Monocytes # (Auto) 0.7, Eosinophils # (Auto) 0.0, Basophils # (Auto) 0.0, Sodium Level 139, Potassium Level 5.4H, Chloride Level 105, Carbon Dioxide Level 24, Anion Gap 10, Blood Urea Nitrogen 55H, Creatinine 1.73H, Estimat Glomerular Filtration Rate 30, BUN/Creatinine Ratio 32, Glucose Level 128H, Calcium Level 9.3, Corrected Calcium 9.7, Total Bilirubin 0.3, Aspartate Amino Transf (AST/SGOT) 59H, Alanine Aminotransferase (ALT/SGPT) 50, Alkaline Phosphatase 87, Total Protein 7.2, Albumin 3.5 01/16/19 04:52: Glucometer 124H 01/16/19 11:22: Glucometer 388H 01/16/19 15:09: Glucometer 154H 01/16/19 20:57: Glucometer 241H 01/17/19 05:22: Glucometer 61L 01/17/19 09:48: Glucometer 213H 01/17/19 14:16: Glucometer 210H 01/17/19 20:45: Glucometer 216H 01/18/19 04:30: White Blood Count 11.7H, Red Blood Count 3.55L, Hemoglobin 9.2L, Hematocrit 31L, Mean Corpuscular Volume 87, Mean Corpuscular Hemoglobin 26, Mean Corpuscular Hemoglobin Concent 30L, Red Cell Distribution Width 14.9H, Platelet Count 306, Mean Platelet Volume 10.2, Neutrophils (%) (Auto) 75, Lymphocytes (%) (Auto) 18, Monocytes (%) (Auto) 7, Eosinophils (%) (Auto) 1, Basophils (%) (Auto) 0, Neutrophils # (Auto) 8.7H, Lymphocytes # (Auto) 2.1, Monocytes # (Auto) 0.8, Eosinophils # (Auto) 0.1, Basophils # (Auto) 0.0, Sodium Level 139, Potassium Level 4.5, Chloride Level 105, Carbon Dioxide Level 26, Anion Gap 8, Blood Urea Nitrogen 42H, Creatinine 1.35H, Estimat Glomerular Filtration Rate 40, BUN/Creatinine Ratio 31, Glucose Level 39*L, Calcium Level 8.8, Corrected Calcium 9.4, Magnesium Level 2.6H, Total Bilirubin 0.3, Aspartate Amino Transf ( AST/SGOT) 50H, Alanine Aminotransferase (ALT/SGPT) 49, Alkaline Phosphatase 91, Total Protein 6.4, Albumin 3.3 01/18/19 04:48: Glucometer 44*L 01/18/19 05:36: Glucometer 85 01/18/19 09:30: Glucometer 113H 01/18/19 14:22: Glucometer 237H 01/18/19 20:55: Glucometer 232H 01/19/19 05:48: Glucometer 67L 01/19/19 06:34: Glucometer 101 01/19/19 11:11: Glucometer 177H 01/19/19 16:32: Glucometer 115H 01/19/19 20:11: Glucometer 199H 01/20/19 05:56: Glucometer 50*L 01/20/19 06:27: Glucometer 75 01/20/19 10:04: Glucometer 219H 01/20/19 14:54: Glucometer 90 01/20/19 19:34: Glucometer 310H 01/21/19 05:41: Glucometer 56*L 01/21/19 06:25: Glucometer 108 01/21/19 08:56: Glucometer 247H 01/21/19 14:38: Glucometer 114H 01/21/19 19:11: Glucometer 270H 01/21/19 23:01: Glucometer 29*L 01/21/19 23:12: Glucometer 42*L 01/21/19 23:32: Glucometer 69L 01/22/19 00:09: Glucometer 76 01/22/19 01:11: Glucometer 92 01/22/19 01:53: Glucometer 93 01/22/19 05:17: Glucometer 139H 01/22/19 06:45: Glucometer 142H 01/22/19 09:24: Glucometer 255H 01/22/19 13:46: Glucometer 398H 01/22/19 14:57: Glucometer 356H 01/22/19 16:33: Glucometer 314H 01/22/19 20:28: Glucometer 377H 01/23/19 05:22: White Blood Count 8.2, Red Blood Count 3.32L, Hemoglobin 8.9L, Hematocrit 29L, Mean Corpuscular Volume 88, Mean Corpuscular Hemoglobin 27, Mean Corpuscular Hemoglobin Concent 30L, Red Cell Distribution Width 14.5, Platelet Count 190, Mean Platelet Volume 10.7H, Neutrophils (%) (Auto) 75, Lymphocytes (%) (Auto) 19, Monocytes (%) (Auto) 5, Eosinophils (%) (Auto) 1, Basophils (%) (Auto) 0, Neutrophils # (Auto) 6.1, Lymphocytes # (Auto) 1.6, Monocytes # (Auto) 0.4, Eosinophils # (Auto) 0.1, Basophils # (Auto) 0.0, Sodium Level 137, Potassium Level 4.4, Chloride Level 101, Carbon Dioxide Level 25, Anion Gap 11, Blood Urea Nitrogen 37H, Creatinine 1.63H, Estimat Glomerular Filtration Rate 32, BUN/Creatinine Ratio 23, Glucose Level 231H, Calcium Level 8.7, Corrected Calcium 9.3, Total Bilirubin 0.3, Aspartate Amino Transf (AST/SGOT) 43H, Alanine Aminotransferase (ALT/SGPT) 51, Alkaline Phosphatase 79, Total Protein 6.1L, Albumin 3.2 01/23/19 11:52: Glucometer 210H 01/23/19 15:24: Glucometer 206H 01/23/19 20:12: Glucometer 364H 01/24/19 05:44: Glucometer 205H 01/24/19 10:54: Glucometer 254H 01/24/19 15:44: Glucometer 212H 01/24/19 20:57: Glucometer 147H 01/25/19 05:05: Glucometer 145H 01/25/19 11:00: Glucometer 115H 01/25/19 15:46: Glucometer 81 01/25/19 16:57: Glucometer 132H 01/25/19 20:27: Glucometer 140H 01/26/19 05:28: Glucometer 94 01/26/19 11:01: Glucometer 162H 01/26/19 15:35: Glucometer 171H 01/26/19 20:21: Glucometer 161H 01/27/19 05:00: Sodium Level 136, Potassium Level 4.5, Chloride Level 102, Carbon Dioxide Level 25, Anion Gap 9, Blood Urea Nitrogen 22H, Creatinine 1.36H, Estimat Glomerular Filtration Rate 40, BUN/Creatinine Ratio 16, Glucose Level 152H, Calcium Level 8.8, Corrected Calcium 9.4, Magnesium Level 2.0, Total Bilirubin 0.4, Aspartate Amino Transf (AST/SGOT) 50H, Alanine Aminotransferase (ALT/SGPT) 46, Alkaline Phosphatase 88, B-Type Natriuretic Peptide 388.4H, Total Protein 6.2L, Albumin 3.3 01/27/19 05:53: Glucometer 172H 01/27/19 10:51: Glucometer 225H 01/27/19 15:39: Glucometer 178H 01/27/19 20:13: Glucometer 211H 01/28/19 05:05: Glucometer 180H 01/28/19 10:36: Glucometer 213H Pending Labs Laboratory Tests 01/13/19 17:28: Glucometer 182 01/13/19 21:09: Glucometer 296 01/14/19 05:05: Glucometer 100 01/14/19 08:46: White Blood Count 14.3, Red Blood Count 3.68, Hemoglobin 9.7, Hematocrit 32, Mean Corpuscular Volume 86, Mean Corpuscular Hemoglobin 26, Mean Corpuscular Hemoglobin Concent 31, Red Cell Distribution Width 14.7, Platelet Count 349, Mean Platelet Volume 10.6, Neutrophils (%) (Auto) 80, Lymphocytes (%) (Auto) 14, Monocytes (%) (Auto) 6, Eosinophils (%) (Auto) 0, Basophils (%) (Auto) 0, Neutrophils # (Auto) 11.5, Lymphocytes # (Auto) 1.9, Monocytes # (Auto) 0.8, Eosinophils # (Auto) 0.0, Basophils # (Auto) 0.0, Neutrophils % (Manual) 81, Lymphocytes % (Manual) 11, Monocytes % (Manual) 6, Band Neutrophils 2, Toxic Granulation 1+, Blood Morphology Comment NORMAL, Sodium Level 135, Potassium Level 4.9, Chloride Level 100, Carbon Dioxide Level 19, Anion Gap 16, Blood Urea Nitrogen 70, Creatinine 2.08, Estimat Glomerular Filtration Rate 24, BUN/Creatinine Ratio 34, Glucose Level 289, Calcium Level 9.4, Corrected Calcium 9.8, Total Bilirubin 0.3, Aspartate Amino Transf (AST/SGOT) 51, Alanine A minotransferase (ALT/SGPT) 37, Alkaline Phosphatase 91, Total Protein 7.7, Albumin 3.5 01/14/19 09:52: Glucometer 257 01/14/19 14:41: Glucometer 97 01/14/19 20:29: Glucometer 386 01/15/19 05:07: Glucometer 94 01/15/19 11:03: Glucometer 266 01/15/19 15:00: Glucometer 148 01/15/19 19:37: Glucometer 251 01/16/19 04:50: White Blood Count 11.2, Red Blood Count 3.68, Hemoglobin 9.8, Hematocrit 32, Mean Corpuscular Volume 86, Mean Corpuscular Hemoglobin 27, Mean Corpuscular Hemoglobin Concent 31, Red Cell Distribution Width 14.8, Platelet Count 288, Mean Platelet Volume 10.4, Neutrophils (%) (Auto) 83, Lymphocytes (%) (Auto) 11, Monocytes (%) (Auto) 6, Eosinophils (%) (Auto) 0, Basophils (%) (Auto) 0, Neutrophils # (Auto) 9.3, Lymphocytes # (Auto) 1.2, Monocytes # (Auto) 0.7, Eosinophils # (Auto) 0.0, Basophils # (Auto) 0.0, Sodium Level 139, Potassium Level 5.4, Chloride Level 105, Carbon Dioxide Level 24, Anion Gap 10, Blood Urea Nitrogen 55, Creatinine 1.73, Estimat Glomerular Filtration Rate 30, BUN/Creatinine Ratio 32, Glucose Level 128, Calcium Level 9.3, Corrected Calcium 9.7, Total Bilirubin 0.3, Aspartate Amino Transf (AST/SGOT) 59, Alanine Aminotransferase (ALT/SGPT) 50, Alkaline Phosphatase 87, Total Protein 7.2, Al bumin 3.5 01/16/19 04:52: Glucometer 124 01/16/19 11:22: Glucometer 388 01/16/19 15:09: Glucometer 154 01/16/19 20:57: Glucometer 241 01/17/19 05:22: Glucometer 61 01/17/19 09:48: Glucometer 213 01/17/19 14:16: Glucometer 210 01/17/19 20:45: Glucometer 216 01/18/19 04:30: White Blood Count 11.7, Red Blood Count 3.55, Hemoglobin 9.2, Hematocrit 31, Mean Corpuscular Volume 87, Mean Corpuscular Hemoglobin 26, Mean Corpuscular Hemoglobin Concent 30, Red Cell Distribution Width 14.9, Platelet Count 306, Mean Platelet Volume 10.2, Neutrophils (%) (Auto) 75, Lymphocytes (%) (Auto) 18, Monocytes (%) (Auto) 7, Eosinophils (%) (Auto) 1, Basophils (%) (Auto) 0, Neutrophils # (Auto) 8.7, Lymphocytes # (Auto) 2.1, Monocytes # (Auto) 0.8, Eosinophils # (Auto) 0.1, Basophils # (Auto) 0.0, Sodium Level 139, Potassium Level 4.5, Chloride Level 105, Carbon Dioxide Level 26, Anion Gap 8, Blood Urea Nitrogen 42, Creatinine 1.35, Estimat Glomerular Filtration Rate 40, BUN/Creatinine Ratio 31, Glucose Level 39, Calcium Level 8.8, Corrected Calcium 9.4, Magnesium Level 2.6, Total Bilirubin 0.3, Aspartate Amino Transf (AST/SGOT) 50, Alanine Aminotransferase (ALT/SGPT) 49, Alkaline Phosphatase 91, Total Protein 6.4, Albumin 3.3 01/18/19 04:48: Glucometer 44 01/18/19 05:36: Glucometer 85 01/18/19 09:30: Glucometer 113 01/18/19 14:22: Glucometer 237 01/18/19 20:55: Glucometer 232 01/19/19 05:48: Glucometer 67 01/19/19 06:34: Glucometer 101 01/19/19 11:11: Glucometer 177 01/19/19 16:32: Glucometer 115 01/19/19 20:11: Glucometer 199 01/20/19 05:56: Glucometer 50 01/20/19 06:27: Glucometer 75 01/20/19 10:04: Glucometer 219 01/20/19 14:54: Glucometer 90 01/20/19 19:34: Glucometer 310 01/21/19 05:41: Glucometer 56 01/21/19 06:25: Glucometer 108 01/21/19 08:56: Glucometer 247 01/21/19 14:38: Glucometer 114 01/21/19 19:11: Glucometer 270 01/21/19 23:01: Glucometer 29 01/21/19 23:12: Glucometer 42 01/21/19 23:32: Glucometer 69 01/22/19 00:09: Glucometer 76 01/22/19 01:11: Glucometer 92 01/22/19 01:53: Glucometer 93 01/22/19 05:17: Glucometer 139 01/22/19 06:45: Glucometer 142 01/22/19 09:24: Glucometer 255 01/22/19 13:46: Glucometer 398 01/22/19 14:57: Glucometer 356 01/22/19 16:33: Glucometer 314 01/22/19 20:28: Glucometer 377 01/23/19 05:22: White Blood Count 8.2, Red Blood Count 3.32, Hemoglobin 8.9, Hematocrit 29, Mean Corpuscular Volume 88, Mean Corpuscular Hemoglobin 27, Mean Corpuscular Hemoglobin Concent 30, Red Cell Distribution Width 14.5, Platelet Count 190, Mean Platelet Volume 10.7, Neutrophils (%) (Auto) 75, Lymphocytes (%) (Auto) 19, Monocytes (%) (Auto) 5, Eosinophils (%) (Auto) 1, Basophils (%) (Auto) 0, Neutrophils # (Auto) 6.1, Lymphocytes # (Auto) 1.6, Monocytes # (Auto) 0.4, Eosinophils # (Auto) 0.1, Basophils # (Auto) 0.0, Sodium Level 137, Potassium Level 4.4, Chloride Level 101, Carbon Dioxide Level 25, Anion Gap 11, Blood Urea Nitrogen 37, Creatinine 1.63, Estimat Glomerular Filtration Rate 32, BUN/Creatinine Ratio 23, Glucose Level 231, Calcium Level 8.7, Corrected Calcium 9.3, Total Bilirubin 0.3, Aspartate Amino Transf (AST/SGOT) 43, Alanine Aminotransferase (ALT/SGPT) 51, Alkaline Phosphatase 79, Total Protein 6.1, Albumin 3.2 01/23/19 11:52: Glucometer 210 01/23/19 15:24: Glucometer 206 01/23/19 20:12: Glucometer 364 01/24/19 05:44: Glucometer 205 01/24/19 10:54: Glucometer 254 01/24/19 15:44: Glucometer 212 01/24/19 20:57: Glucometer 147 01/25/19 05:05: Glucometer 145 01/25/19 11:00: Glucometer 115 01/25/19 15:46: Glucometer 81 01/25/19 16:57: Glucometer 132 01/25/19 20:27: Glucometer 140 01/26/19 05:28: Glucometer 94 01/26/19 11:01: Glucometer 162 01/26/19 15:35: Glucometer 171 01/26/19 20:21: Glucometer 161 01/27/19 05:00: Sodium Level 136, Potassium Level 4.5, Chloride Level 102, Carbon Dioxide Level 25, Anion Gap 9, Blood Urea Nitrogen 22, Creatinine 1.36, Estimat Glomerular Filtration Rate 40, BUN/Creatinine Ratio 16, Glucose Level 152, Calcium Level 8.8, Corrected Calcium 9.4, Magnesium Level 2.0, Total Bilirubin 0.4, Aspartate Amino Transf (AST/SGOT) 50, Alanine Aminotransferase (ALT/SGPT) 46, Alkaline Phosphatase 88, B-Type Natriuretic Peptide 388.4, Total Protein 6.2, Albumin 3.3 01/27/19 05:53: Glucometer 172 01/27/19 10:51: Glucometer 225 01/27/19 15:39: Glucometer 178 01/27/19 20:13: Glucometer 211 01/28/19 05:05: Glucometer 180 01/28/19 10:36: Glucometer 213 Discharge Home Medications: Active Scripts Active Xarelto Tablet (Rivaroxaban) 15 Mg Tablet 15 Mg PO DAILY@1700 30 Days Levemir (Insulin Determir) 1,000 Units/10 Ml Soln 10 Unit SQ HS 30 Days Hold if sugar is less than 140 at bedtime Novolog (Insulin Aspart) 100 Unit/1 Ml Susp 7 Unit SC AC 30 Days Diltiazem 24Hr Cd (Diltiazem HCl) 240 Mg Cap.er.24h 240 Mg PO DAILY Iprat-Albut 0.5-3(2.5) mg/3 ml (Ipratropium/Albuterol Sulfate) 3 Ml Ampul.neb 3 Ml INH RTBID Reported Trulicity (Dulaglutide) 0.75 Mg/0.5 Ml Pen.injctr 0.75 Mg SC BOWIE Clonidine HCl 0.1 Mg Tablet 0.1 Mg PO BID Multaq (Dronedarone HCl) 400 Mg Tablet 400 Mg PO BID Hydralazine HCl 10 Mg Tablet 10 Mg PO TID Mysoline (Primidone) 50 Mg Tablet 50 Mg PO HS Stool Softener-Stimulant Lax (Sennosides/Docusate Sodium) 1 Each Tablet 1 Tab PO DAILY PRN Fish Oil 1,000 mg Softgel ([place]-3/Dha/Epa/Fish Oil) 1 Each Capsule 1,000 Mg PO HS Multi-Day Plus Minerals Tablet (Multivitamin-Min/Iron/FA/Vit K) 1 Each Tablet 1 Tab PO DAILY Cyclobenzaprine HCl 10 Mg Tablet 20 Mg PO BID PRN Atorvastatin Calcium 40 Mg Tablet 40 Mg PO HS Hydrocodon-Acetaminophn 10-325 (Hydrocodone/Acetaminophen) 1 Each Tablet 1 Tab PO TID PRN Magnesium (Magnesium Oxide) 400 Mg Tablet 400 Mg PO HS Aspirin EC (Aspirin) 81 Mg Tablet.dr 81 Mg PO DAILY Gabapentin 600 Mg Tablet 600 Mg PO TID Pantoprazole Sodium 40 Mg Tablet.dr 40 Mg PO DAILY Isosorbide Mononitrate ER (Isosorbide Mononitrate) 60 Mg Tab 60 Mg PO DAILY Fenofibrate (Fenofibrate,Micronized) 134 Mg Capsule 134 Mg PO HS Cinnamon (Cinnamon Bark) 500 Mg Capsule 500 Mg PO BID Instructions to patient/family Please see electronic discharge instructions given to patient. Diagnosis/Problems Diagnosis/Problems (1) COPD (chronic obstructive pulmonary disease) Qualifiers: Qualified Codes: J44.9 - Chronic obstructive pulmonary disease, unspecified (2) Debility (3) Hyperkalemia Status: Acute (4) Hyperphosphatemia Status: Acute (5) Respiratory failure Status: Acute (6) BiPAP (biphasic positive airway pressure) dependence (7) DVT prophylaxis Status: Acute (8) Elevated AST (SGOT) Status: Acute (9) Acute renal insufficiency Status: Acute (10) Diabetes mellitus, type 2 Status: Chronic (11) CKD (chronic kidney disease) Status: Chronic (12) A-fib (13) GERD (gastroesophageal reflux disease) Status: Chronic (14) HTN (hypertension) Status: Chronic (15) HLD (hyperlipidemia) Status: Chronic Clinical Quality Measures DVT/VTE Risk/Contraindication: Risk Factor Score Per Nursin RFS Level Per Nursing on Admit: 4+=Very High ZACK ESCOBEDO DO Jan 28, 2019 09:46 POS
[2019-01-28] MEDS: RT-ALBUTEROL/IPRATROPIUM 3 ML (DUONEB) VIAL INH SCH (11:23)
[2019-01-28 13:02] VITALS: BP 143/85
[2019-01-28 13:34] VITALS: BP 143/85
--- NOTE | 2019-01-28 13:41 | NUR ---
NEELIMA CRAIN demonstrates understanding of discharge instructions and accurately returns instructions upon questioning. Copy of Post-Discharge Instructions given to Patient. NEELIMA CRAIN is able to manage continuing needs after discharge. Patients belongings returned to Neelima Crain. Patient discharged from [facility] on 01/28/2019 at 1335. NEELIMA CRAIN left floor via wheelchair, accompanied by staff and family..
--- NOTE | 2019-01-31 14:21 | Therapy Team Discharge Summary ---
Therapy Discharge Summary Discharge Recommendations Date of Discharge Jan 28, 2019 at 13:35 Therapy D/C Recommendations: Home w/ Family Support Occupational Therapy Pt. seen for OT services to increase overall strength and independence level with daily tasks. Pt. met all goals and is able to complete all tasks with independence using equipment as needed. Pt. discharged home with spouse support. Recommend sock aide for LE dressing. Decreased Activ Tolerance PT Skilled Nursing Goals Skilled Nursing Goals PT Bacteriologist Food Goals Time Frame: Feb 03, 2019 Roll Left to Right (QC): 6 Sit to Lying (QC): 6 Lying-Sitting on Side/Bed(QC): 6 Sit to Stand (QC): 6 Chair/Cft-qa-Jeinr Xfer(QC): 6 Car Transfer (QC): 6 Does the Patient Walk: Yes Distance: 300' Walk 10 feet (QC): 6 Walk 10ft-Uneven Surface(QC): 4 (SBA) Walk 50ft with 2 Turns (QC): 6 Walk 150 ft (QC): 6 Gait Assistive Device: FWW Does the Pt use WC or Scooter?: No # of Steps: 4 1 Step (curb) (QC): 4 (SBA) 4 Steps (QC): 4 (SBA) Picking up an Object (QC): 4 (SBA) OT Skilled Nursing Goals Bacteriologist Food Goals Eating (QC): 6 (met-01/27/2019) Oral Hygiene (QC): 6 (met-01/27/2019) Shower/Bathe Self (QC): 6 (met-01/27/2019) Upper Body Dressing (QC): 6 (met01/27/2019) Lower Body Dressing (QC): 6 (met-01/27/2019) On/Off Footwear (QC): 6 (met-01/27/2019) Toileting Hygiene (QC): 6 (met-01/27/2019) Toilet/Commode Transfer (QC): 6 (met-01/27/2019) Additional Goals: 1-Demonstrate ADL Tasks, 2-Verbalize Understanding, 3- ImproveStrength/Diaen 1=Demonstrate adherence to instructed precautions during ADL tasks. 2=Patient will verbalize/demonstrate understanding of assistive devices/modifications for ADL. 3=Patient will improve strength/tolerance for activity to enable patient to perform ADL's. DOV BADILLO OT Jan 31, 2019 14:21 POS
== END 2019-01-28 13:35 | disposition home health service (06) | DRG 91 ==
PROVIDERS: ADMIT Internal Medicine; ATTEND Internal Medicine
DX: G72.89 Other specified myopathies (principal); J44.9 Chronic obstructive pulmonary disease, unspecified; I12.9 Hypertensive chronic kidney disease with stage 1 through stage 4 chronic kidney disease, or unspecified chronic kidney disease; N18.9 Chronic kidney disease, unspecified; E11.21 Type 2 diabetes mellitus with diabetic nephropathy; E11.65 Type 2 diabetes mellitus with hyperglycemia; I21.A1 Myocardial infarction type 2; E88.81 Metabolic syndrome and other insulin resistance; T82.855D Stenosis of coronary artery stent, subsequent encounter; I48.0 Paroxysmal atrial fibrillation; I49.5 Sick sinus syndrome; G47.33 Obstructive sleep apnea (adult) (pediatric); I25.10 Atherosclerotic heart disease of native coronary artery without angina pectoris; E78.5 Hyperlipidemia, unspecified; E66.9 Obesity, unspecified; M16.11 Unilateral primary osteoarthritis, right hip; M70.61 Trochanteric bursitis, right hip; K59.09 Other constipation; K21.9 Gastro-esophageal reflux disease without esophagitis; F41.9 Anxiety disorder, unspecified; F32.9 Major depressive disorder, single episode, unspecified; M51.37 Other intervertebral disc degeneration, lumbosacral region; Z68.37 Body mass index [BMI] 37.0-37.9, adult; Z79.4 Long term (current) use of insulin; Z86.711 Personal history of pulmonary embolism; Z87.891 Personal history of nicotine dependence; Z95.5 Presence of coronary angioplasty implant and graft; Z79.01 Long term (current) use of anticoagulants; T38.0X5A Adverse effect of glucocorticoids and synthetic analogues, initial encounter
CPT/HCPCS: 36415; 71045; 72110; 72148; 73502; 80053; 82962; 83735; 83880; 85007; 85025; 85027; 94640; 94660; 94664; 94760; 94761

== ENCOUNTER 2019-02-05 08:40 | Emergency (ER) | payer MEDICARE, OTHER ==
[~2019-02-05 08:40] MED LIST changes: +DILT240C97 PO; +INSU100V16 SC; +IPRA3AMP31 INH; +RIVA15TA2 PO
[2019-02-05] MEDS ORDERED: NS (IVPB) 250 ML ONE (08:45)
[2019-02-05] MEDS ORDERED: NOREPINEPHRINE 4 MG/4 ML (LEVOPHED) AMP IV ONE (08:45)
[2019-02-05] MEDS ORDERED: ONDANSETRON 4 MG/2 ML (SDV) Z0FRAN ONE (08:57)
--- NOTE | 2019-02-05 09:14 | Diagnostic Imaging Report ---
INDICATION: Altered metal status. TIME OF EXAM: 9:05 AM COMPARISON is made with prior chest from 01/16/2019. The heart is enlarged but stable. There is central congestive changes without overt failure. Pacer overlies the right chest. There is no effusion or pneumothorax. There are postoperative changes in the lower cervical spine. IMPRESSION: Cardiomegaly with central congestive changes. Dictated by: Dictated on workstation # [id number]
[2019-02-05] MEDS ORDERED: EPINEPHrine 1 MG INJECTION 2 MG in NS (IVPB) 248 ML IV ONE (09:15)
--- NOTE | 2019-02-05 09:26 | ED Cardiac General ---
History of Present Illness General Chief Complaint: Cardiac/General Problems Nursing Triage Note: brought in by ems for unresponsiveness at home. had called 911. States the patient normally wears oxygen at night and had fallen off sometime during the night. Was minimally responsive for EMS and was brought in with assisted respirations from bag mask valve. IO is in place in R lower leg. Is bradycardic in 40's and was given atropine by ems. History of Present Illness Date Seen by Provider: Feb 05, 2019 Time Seen by Provider: 08:50 Initial Comments The patient is a 63-year-old female with a history of hypertension, hyperlipidemia, CAD with stents in place, insulin dependent diabetes, COPD on home oxygen/CPAP at nighttime only, atrial fibrillation on PO Cardizem and Xarelto, h/o PE. The patient presents the emergency department via EMS with concern for unresponsiveness at home this morning area did awoke from sleep and found the patient unable to be roused. He called EMS. Upon EMS arrival patient was noted to have a heart rate in the high 30s to low 40s and an oxygen saturation in the low 90s on room air. They were unable to obtain a good blood pressure. Consideration was given to transcutaneously pacing the patient en route but she had good response to atropine so EMS hold off. Blood glucose was 180 en route. Patient did respond to painful stimuli purposefully with all extremities and route and once roomed in the emergency department she had a GCS of 12 (E3V3M6), so definitive airway control was deferred. Oxygen saturation was found to be stable in the high 90s on 5 L per nasal cannula and the patient was found to have a significantly bradycardic heart rate with rates in the low 40s and hypotension with no palpable peripheral pulses and measured blood pressures in the 60s over 30s. Tibial intraosseous line was placed along with a peripheral line. IV fluids started. Atropine was given with minimal response. I opted to temporize BP and pulse with push dose epinephrine (patient received 3 push doses in all at 1/10th of code dose epi) and patient did have quite a good response to push dose epinephrine with increase in heart rate to the 80s to 90s and improvement in blood pressure to the 150s systolic. She also seemed more responsive after push dose epinephrine. Given excellent response to push dose pressor I opted to defer transcutaneous pacing in the emergency department in favor of an epinephrine drip which was started at a low rate. Patient seemed to have a good response to this. As patient is an insulin-dependent diabetic with an unstable bradycardia I did administer a push dose of empiric calcium chloride through the patient's intraosseous line in the event hyperkalemia was causing symptoms. This did not result in any improvement and patient did have a narrow QRS and no peaked T waves so unlikely hyperkalemic bradycardia. Serial EKGs obtained in the emergency department most suspicious for slow rate atrial fibrillation (improved to rate > 100s on epi) which in the setting of hypotension was an indication for emergent cardioversion. 150 mg of amiodarone was administered via slow IV push and the patient was then emergently DC cardioverted at 100J synchronized. This appeared to resolve the patient's dysrhythmia as post cardioversion EKG does demonstrate apparent sinus rhythm with rate of 91. Minimal ST depression is seen in lateral leads on post cardioversion EKG but no acute ST elevation is noted. Patient remains on a very low rate of epinephrine gtt with stable and appropriate HR and BP at this time, and is much more responsive on reassessment. Unclear whether patient even needs any pressor support at this time but will go ahead and keep her on epinephrine at a low rate for vasopressor and inotropic support if needed, as bradycardia has resolved. Helicopter called for emergent aeromedical transport to [facility] in [place], where the patient is graciously accepted in transfer by Dr. Snow. Labs are coming back at the time of transfer out of the emergency department but given patient's instability through her stay here we have not been able to obtain a head CT which I feel is also indicated in this case due to altered mental status and poor responsiveness. This may be obtained at the receiving facility. Amiodarone drip initiated at a low rate for antiarrhythmic support prior to transfer out of the department. Allergies and Home Medications Allergies Coded Allergies: morphine (Verified Adverse Reaction, Severe, hallucination, 07/12/18) Home Medications Aspirin 81 Mg Tablet.dr, 81 MG PO DAILY, (Reported) Atorvastatin Calcium 40 Mg Tablet, 40 MG PO HS, (Reported) Cinnamon Bark 500 Mg Capsule, 500 MG PO BID, (Reported) Clonidine HCl 0.1 Mg Tablet, 0.1 MG PO BID, (Reported) Cyclobenzaprine HCl 10 Mg Tablet, 20 MG PO BID PRN for MUSCLE SPASMS, (Reported) Diltiazem HCl 240 Mg Cap.er.24h, 240 MG PO DAILY Prescribed by: ZACK ESCOBEDO on 01/27/19 09 Dronedarone HCl 400 Mg Tablet, 400 MG PO BID, (Reported) Dulaglutide 0.75 Mg/0.5 Ml Pen.injctr, 0.75 MG SC Mandujano, (Reported) Fenofibrate,Micronized 134 Mg Capsule, 134 MG PO HS, (Reported) Gabapentin 600 Mg Tablet, 600 MG PO TID, (Reported) Hydralazine HCl 10 Mg Tablet, 10 MG PO TID, (Reported) Hydrocodone/Acetaminophen 1 Each Tablet, 1 TAB PO TID PRN for PAIN-MODERATE, (Reported) Insulin Aspart 100 Unit/1 Ml Susp, 7 UNIT SC AC Prescribed by: ZACK ESCOBEDO on 01/27/19 09 Insulin Determir 1,000 Units/10 Ml Soln, 10 UNIT SQ HS Hold if sugar is less than 140 at bedtime Prescribed by: ZACK ESCOBEDO on 01/27/19 09 Ipratropium/Albuterol Sulfate 3 Ml Ampul.neb, 3 ML INH RTBID Prescribed by: ZACK ESCOBEDO on 01/27/19 09 Isosorbide Mononitrate 60 Mg Tab, 60 MG PO DAILY, (Reported) Magnesium Oxide 400 Mg Tablet, 400 MG PO HS, (Reported) Multivitamin-Min/Iron/FA/Vit K 1 Each Tablet, 1 TAB PO DAILY, (Reported) Borup-3/Dha/Epa/Fish Oil 1 Each Capsule, 1,000 MG PO HS, (Reported) Pantoprazole Sodium 40 Mg Tablet.dr, 40 MG PO DAILY, (Reported) Primidone 50 Mg Tablet, 50 MG PO HS, (Reported) Rivaroxaban 15 Mg Tablet, 15 MG PO DAILY@1700 Prescribed by: ZACK ESCOBEDO on 01/27/19 1031 Sennosides/Docusate Sodium 1 Each Tablet, 1 TAB PO DAILY PRN for CONSTIPATION- 6TH LINE, (Reported) Patient Home Medication List Home Medication List Reviewed: Yes Review of Systems Review of Systems Constitutional: see HPI All Other Systems Reviewed Negative Unless Noted: Yes (Negative excepted noted.) Past Bakvlfo-Rgjobf-Ombdwc Hx Past Med/Social Hx: Reviewed Nursing Past Med/Soc Hx Patient Social History Type Used: Cigarettes Former Smoker, Quit: Mar 24, 1997 2nd Hand Smoke Exposure: No Recent Foreign Travel: No Contact w/Someone Who Travel: No Recent Infectious Disease Expo: No Recent Hopitalizations: Yes Immunizations Up To Date Tetanus Booster (TDap): Unknown PED Vaccines UTD: Yes Date of Pneumonia Vaccine: Mar 05, 2013 Date of Influenza Vaccine: Jan 12, 2019 Seasonal Allergies Seasonal Allergies: No Past Medical History Surgeries: Yes (neck and back surgeries) Coronary Stent, Gallbladder, Hysterectomy, Orthopedic Respiratory: Yes Pneumonia, Pulmonary Embolism, Sleep Apnea, COPD Currently Using CPAP: Yes Cardiac: Yes (stents) Atrial Fibrillation, Coronary Artery Disease, High Cholesterol, Hypertension Neurological: No Reproductive Disorders: No Genitourinary: No Bladder Infection, Renal Failure Gastrointestinal: Yes Gastroesophageal Reflux, Chronic Constipation, Pancreatitis Musculoskeletal: Yes (CHRONIC HIP PAIN BILATERALLY, FX NECK) Arthritis Endocrine: Yes Diabetes, Insulin dep, Diabetes, Non-Insulin dep HEENT: No Loss of Vision: Denies Hearing Impairment: Denies Cancer: No Psychosocial: No Anxiety Integumentary: No Blood Disorders: No Family Medical History Reviewed Nursing Family Hx Diabetes, Hypertension Physical Exam Vital Signs Vital Signs - First Documented 02/05/19 08:40 Temp 36.3 Pulse 45 Capillary Refill : Less Than 3 Seconds Height, Weight, BMI Height: 5'4.00" Weight: 219lbs. 1.0oz. 99.758848iy; 40.33 BMI Method:Stated General Appearance: Other Other comments This is an elderly, chronically ill-appearing patient who appears somnolent and relatively poorly responsive with a GCS of 12 as noted above. Head is normocephalic and atraumatic. Neck is supple and nontender. Oropharynx is moist. Lungs are clear to auscultation in all stations. There is a slow, relatively irregular heart rate with thready peripheral pulses noted and diminished capillary refill. Abdomen is soft and protuberant (this is evidently baseline fo r the patient per her ). Skin is warm and dry without cyanosis, clubbing or edema. Psychiatrically, the patient cannot be assessed secondary to mental status. Neurologically, GCS of 12 (E3V3M6) and patient moves all extremities equally and does follow commands. Examination the back reveals no erythema, warmth, swelling, step-offs or deformities. Procedures/Interventions Additional Procedures: cardioversion/defib Progress Patient DC cardioverted at 100 J 1 synchronized with resolution of unstable arrythmia and denominational of apparent normal sinus rhythm. Patient in improved condition following the procedure and tolerated it very well. 60 minutes of critical care time were spent in the care of this critically ill patient, independent of separately documented procedures. Progress/Results/Core Measures Results/Orders My Orders Orders - ALEXA SOLIZ MD Norepinephrine (Levophed) (02/05/19 08:45) Ns (Ivpb) (Sodium Chloride 0.9%) (02/05/19 08:45) Ondansetron Injection (Zofran Injectio (02/05/19 08:57) Cbc With Automated Diff (02/05/19 09:01) Comprehensive Metabolic Panel (02/05/19 09:) Troponin I Fs (02/05/19 09:01) Ekg Tracing (02/05/19 09:01) Chest 1 View Ap/Pa Only (02/05/19 09:) Ct Head Wo (02/05/19 09:01) Probnp Fs (02/05/19 09:01) Protime With Inr (02/05/19 09:01) Partial Thromboplastin Time (02/05/19 09:01) Ua Culture If Indicated (02/05/19 09:01) Acetaminophen (02/05/19 09:01) Salicylate (02/05/19 09:01) Alcohol (02/05/19 09:01) Drug Screen Stat (Urine) (02/05/19 09:01) Lactic Acid Analyzer (02/05/19 09:01) Blood Culture (02/05/19 09:01) Magnesium (02/05/19 09:01) Ns (Ivpb) (Sodium C... W/Epinephrine 1 (02/05/19 09:15) Medications Given in ED Current Medications Medications Dose Ordered Sig/Papa Route Start Time Stop Time Status Last Admin Dose Admin Epinephrine HCl 2 mg/Sodium Chloride 250 ml @ 74.52 mls/ hr Q3H22M ONCE IV 02/05/19 09:15 02/05/19 12:36 02/05/19 09:05 149.04 MLS/HR Vital Signs/I&O 02/05/19 08:40 Temp 36.3 Pulse 45 B/P (MAP) Progress Progress Note : Time: 09:53 Progress Note Transition of care to aeromedical EMS at this time with patient in stabilized and much improved condition after interventions documented as per narrative above. Patient has stable pulse, blood pressure, oxygenation and significantly improved mental status upon reevaluation prior to transfer of the department to the helicopter. Diagnostic Imaging Comments Initial EKG appears to be slow rate A. fib versus much less likely third-degree heart block without acute ST elevation or depression. Repeat EKG with apparent atrial fibrillation versus junctional rhythm at a rate of [address] elevation or depression. In both cases, artifacts in some leads limited interpretation. Final EKG after DC cardioversion demonstrates normal sinus rhythm, rate 91, no acute ST elevation, ST depressions in lateral leads as well as inferior leads to some degree, DE 187, QRS 106, QTC 446, EP interpretation. CXR: INDICATION: Altered metal status. TIME OF EXAM: 9:05 AM COMPARISON is made with prior chest from 01/16/2019. The heart is enlarged but stable. There is central congestive changes without overt failure. Pacer overlies the right chest. There is no effusion or pneumothorax. There are postoperative changes in the lower cervical spine. IMPRESSION: Cardiomegaly with central congestive changes. Critical Care Note Critical Care Total Time (minutes) 60 Departure Impression Primary Impression: Atrial fibrillation with slow ventricular response Additional Impressions: Bradycardia Hypotension (arterial) Qualified Codes: I95.89 - Other hypotension Disposition: 02 XFER SHT-TRM HOSP Condition: Improved Transfer Transfer Reason: Exceeds level of care Time Spoke to Accepting Phy: 09:30 Transfer Progress Notes [facility] cardiac [facility] will not have necessary services. Transferring to [facility] Transfer Time: 10:00 Transfer Facility: [facility], Dr. Snow accepting Method of Transfer: Air Departure-Patient Inst. Referrals: GEE AMADO MD (PCP/Family) Primary Care Physician ALEXA SOLIZ MD Feb 05, 2019 09:26 POS
[2019-02-05 09:33] LABS: BASOPHILS % (AUTO) 0 % (0-10); EOSINOPHILS % (AUTO) 2 % (0-10); HEMATOCRIT 30 % (35-52); HEMOGLOBIN 8.9 G/DL (11.5-16.0); LYMPHOCYTES % (AUTO) 45 % (12-44); MEAN CORPUSCULAR HEMOGLOBIN 27 PG (25-34); MEAN CORPUSCULAR HGB CONC 29 G/DL (32-36); MEAN CORPUSCULAR VOLUME 90 FL (80-99); MEAN PLATELET VOLUME 11.4 FL (7.4-10.4); MONOCYTES % (AUTO) 5 % (0-12); NEUTROPHILS % (AUTO) 48 % (42-75); PLATELET COUNT 274 10^3/uL (130-400); RED CELL DISTRIBUTION WIDTH 15.4 % (10.0-14.5)
[2019-02-05 09:34] LABS: EOSINOPHILS # (AUTO) 0.2 10^3/uL (0.0-0.3); LYMPHOCYTES # (AUTO) 5.5 X 10^3 (1.0-4.0); MONOCYTES # (AUTO) 0.6 X 10^3 (0.0-1.0); NEUTROPHILS # (AUTO) 5.7 X 10^3 (1.8-7.8)
[2019-02-05 09:37] LABS: INR 2.4 (0.8-1.4)
--- NOTE | 2019-02-05 09:40 | NUR ---
923- HR increased to 140's, probable afib 0925- 150 mg bolus of amiodarone started 925- synchronized shock of 100J given. HR decreased after shock into 80's and 90's, NSR. 926- repeat ekg performed 929- epi drip decreased back to 0.2mg/kg. 0940- 20 g IV started in R FA.
--- NOTE | 2019-02-05 09:41 | NUR ---
Patient arrived at 0840 via EMS with assisted respirations from bag mask valve and IO in R lower leg in place. Patient is bradycardic with HR in 40's. Initial BP is 80's systolic. 0840- 0.1 mg epi given; 1 mg atropine given 0845-1 gram calcium chloride 0853-.1 mg epi given 0907- 0.1 mg epi given
--- NOTE | 2019-02-05 09:50 | NUR ---
[facility] is here for patient transport.
[2019-02-05] MEDS ORDERED: AMIODARONE 450 MG/9 ML (CORDARONE) VIAL IV ONE (09:58)
[2019-02-05] MEDS ORDERED: NS IV 500 ML 0 ML ONE (09:58)
[2019-02-05 10:05] LABS: BUN/CREATININE RATIO 14; CALCIUM 8.9 MG/DL (8.5-10.1); CARBON DIOXIDE 22 MMOL/L (21-32); CHLORIDE 103 MMOL/L (98-107); CREATININE SERUM 4.07 MG/DL (0.60-1.30); GFR ESTIMATED 11; GLUCOSE 175 MG/DL (70-105); MAGNESIUM 2.3 MG/DL (1.6-2.4); POTASSIUM 5.3 MMOL/L (3.6-5.0); SODIUM 141 MMOL/L (135-145)
[2019-02-05 10:06] LABS: ACETAMINOPHEN < 10 UG/ML (10-30); ALANINE AMINOTRANSFERASE 24 U/L (0-55); ALBUMIN 3.7 GM/DL (3.2-4.5); ALKALINE PHOSPHATASE 92 U/L (40-136); BILIRUBIN,TOTAL 0.3 MG/DL (0.1-1.0); SALICYLATE < 0.3 MG/DL (5.0-20.0)
[2019-02-05 10:25] VITALS: BP 151/55
[2019-02-05 10:28] LABS: ABG BASE EXCESS -4.9 MMOL/L (-2.5-2.5); ABG PCO2 50 MMHG (35-45); ABG PH 7.26 (7.37-7.43); ABG PO2 101 MMHG (79-93); ABG TCO2 23.9 MMOL/L (21.0-31.0)
[2019-02-05 10:29] LABS: ABG OXYGEN SATURATION 97 % (94-100); ALLENS TEST PT NOT ABLE; INSPIRED O2 5L
[2019-02-05 10:30] LABS: PATIENT TEMP 36.3; VENTILATOR NO
[2019-02-05] MEDS ORDERED: ONDANSETRON 4 MG/2 ML (SDV) Z0FRAN IVP ONE (11:00)
[2019-02-05] MEDS ORDERED: AMIODARONE INJECTION 450 MG in D5W IV SOLUTION (EXCEL) 250 ML IV SCH (11:15)
== END 2019-02-05 10:25 | disposition short-term general hospital (02) ==
LOC: EDUNIT# 08:40 → ER FS 08:41
DX: I48.91 Unspecified atrial fibrillation (principal); I95.89 Other hypotension; R00.1 Bradycardia, unspecified; I10 Essential (primary) hypertension; E11.9 Type 2 diabetes mellitus without complications; J44.9 Chronic obstructive pulmonary disease, unspecified; E78.5 Hyperlipidemia, unspecified; F41.9 Anxiety disorder, unspecified; I25.10 Atherosclerotic heart disease of native coronary artery without angina pectoris; E78.00 Pure hypercholesterolemia, unspecified; K21.9 Gastro-esophageal reflux disease without esophagitis; G47.30 Sleep apnea, unspecified; Z86.711 Personal history of pulmonary embolism; Z99.89 Dependence on other enabling machines and devices; Z95.5 Presence of coronary angioplasty implant and graft; Z79.01 Long term (current) use of anticoagulants; Z79.82 Long term (current) use of aspirin; Z79.4 Long term (current) use of insulin; Z87.891 Personal history of nicotine dependence; Z90.710 Acquired absence of both cervix and uterus; Z82.49 Family history of ischemic heart disease and other diseases of the circulatory system
CPT/HCPCS: 36680; 71045; 80053; 80320; 80329; 82805; 83605; 83735; 83880; 84484; 85610; 85730; 87040; 93005

== ENCOUNTER 2019-02-17 09:42 | Inpatient (IN) | payer MEDICARE, OTHER ==
[~2019-02-17] VITALS: Ht 162 cm; Wt 96.6 kg
[~2019-02-17 09:42] MED LIST changes: +DILT240C92 PO; -DILT240C97 PO; +METF500T19 PO; -METF500T8 PO
[2019-02-17] MEDS ORDERED: FLEET ENEMA ADULT 1 EA BTL PR PRN (12:15)
[2019-02-17] MEDS ORDERED: diphenhydrAMINE 25 MG TAB (BENADRYL) PO PRN (12:15)
[2019-02-17] MEDS ORDERED: LOPERAMIDE 2 MG (IMODIUM) TABLET PO PRN (12:15)
[2019-02-17] MEDS ORDERED: guaiFENesin/CODEINE (ROBITUSSIN AC) 10ML UDC PO PRN (12:15)
[2019-02-17] MEDS ORDERED: MELATONIN 3 MG TABLET PO PRN (12:15)
[2019-02-17] MEDS ORDERED: ALPRAZolam 0.25 MG (XANAX) TAB PO PRN (12:15)
[2019-02-17] MEDS ORDERED: ONDANSETRON 4 MG (ZOFRAN) ORAL DISSOLVE TAB PO PRN (12:15)
[2019-02-17] MEDS ORDERED: CALCIUM CARBONATE 500 MG (TUMS) TAB.CHEW PO PRN (12:15)
[2019-02-17] MEDS ORDERED: ACETAMINOPHEN 500 MG TAB (TYLENOL) PO PRN (12:15)
[2019-02-17] MEDS ORDERED: LACTULOSE SYRUP 10GM/15ML (ENULOSE) 30ML UDC PO PRN (12:15)
[2019-02-17] MEDS ORDERED: ONDANSETRON 4 MG/2 ML (SDV) Z0FRAN IV PRN (12:15)
[2019-02-17] MEDS ORDERED: DOCUSATE SODIUM 100 MG (COLACE) CAP PO PRN (12:15)
[2019-02-17] MEDS ORDERED: BISACODYL 10 MG SUPP (DULCOLAX) PR PRN (12:15)
--- NOTE | 2019-02-17 14:50 | NUR ---
Admitted to room , with an admitting diagnosis of debility, on 02-17-19 from [facility] via , accompanied by .NEELIMA CRAIN introduced to surroundings, call light, bed controls, phone, TV, temperature control, lights, meal times, smoking policy, visitor policy, side rail policy, bathrooms and showers. Patient Rights given to patient in the handbook.NEELIMA CRAIN verbalizes understanding that [facility] is not responsible for the loss or damage to any personal effects or valuables that are kept in the patients posession during their hospitalization. The following Patient Care Plans were discussed with the : Discharge Planning, ,, and potential for injury r/t falls]. NEELIMA CRAIN verbalizes understanding of Interdisciplinary Patient Education. Patient and/or family were informed about the Rapid Response Team and its purpose. Patient received Patient Rights Booklet, which includes Privacy Act Statement and Data Collection Information Summary.
[2019-02-17] MEDS ORDERED: AMLO10TA7 PO (15:14)
[2019-02-17] MEDS ORDERED: INSU100V5 SQ (15:20)
[2019-02-17] MEDS ORDERED: IPRA3AMP31 IH (15:20)
[2019-02-17] MEDS ORDERED: METO50TA15 PO (15:20)
[2019-02-17] MEDS ORDERED: RIVA15TA PO (15:20)
[2019-02-17] MEDS ORDERED: INSU100V16 SQ (15:20)
[2019-02-17] MEDS ORDERED: SPIR25TA PO (15:22)
[2019-02-17] MEDS ORDERED: EMPA10TA PO (15:22)
[2019-02-17] MEDS ORDERED: TORS10TA5 PO (15:22)
--- NOTE | 2019-02-17 15:23 | NUR ---
ENTERED THE MED REC FROM THE PATIENT DISCHARGE MEDICATION REPORT FROM [facility]. Addendum: 02/20/19 at 1416 by AVNI GARCIA CPhT NEW MEDS THAT WERE STARTED: XARELTO JARDIANCE PLEASE NOTE THE FOLLOWING CHANGES: STOPPED TAKING: METFORMIN CLONIDINE DILTIAZEM MULTAQ HYDRALAZINE HYDROCODONE I WILL UPDATE THE MEDS AT A LATER DATE BACK TO THE HOME MEDS THE PATIENT WAS TAKING PRIOR TO HOSPITALIZATION FOR PROPER DISCHARGE ORDER. Addendum: 02/20/19 at 1443 by AVNI GARCIA CPhT OTHER NEW MEDS: TORSEMIDE SPIRONOLACTONE MEDS CHANGES: PT WAS TAKING XARELTO 20MG BUT THE NEW ORDERS ARE FOR XARELTO 15MG METOPROLOL TART 100MG AND THE NEW ORDER SAYS METOPROLOL TART 50MG FUROSEMIDE THEY ARE CHANGING TO TORSEMIDE Addendum: 02/20/19 at 1507 by AVNI GARCIA music copyist I REMOVED THE NEW MEDICATION ORDERED AT DISCHARGE FROM [facility] AT THE TIME. I CHANGED THE METOPROLOL TART BACK TO 100MG AMD THE XARELTO BACK TO THE 20MG. I REMOVED JARDIANCE, SPIRONOLACTONE AND TORSEMIDE SINCE THESE HAD NOT PREVIOUSLY BEEN FILLED. I ADDED BACK THE CLONIDINE, DILTIAZEM, MULTAQ, HYDROCODONE AND HYDRALAZINE THAT WERE DISCONTINUED.
--- NOTE | 2019-02-17 15:29 | Physical Therapy Evaluation ---
PT Evaluation-General Medical Diagnosis Admission Date 02/17/19 Medical Diagnosis: encephalopathy, respiratory failure Onset Date: Feb 05, 2019 Therapy Diagnosis Therapy Diagnosis: decreased functional mobility Height/Weight Height (Feet): 5 Height (Inches): 4.00 Weight (Pounds): 219 Weight (Ounces): 1.0 Precautions Precautions/Isolations: Fall Prevention, Standard Precautions Weight Bear Status Right Lower Extremity: Right Full Weight Bearing Left Lower Extremity: Left Full Weight Bearing Referral Physician: Jessica Reason for Referral: Evaluation/Treatment Medical History Pertinent Medical History: Atrial Fib, CAD, COPD, DM, GERD, HTN Current History Pt transferred from outside facility after recent hospitalization for encephalopathy and respiratory failure. Reviewed History: Yes Social History Home: Single Level Current Living Status: Spouse Entry Into Home: Stairs Without Railing PT Steps Into Home: 3 Prior Prior Level of Function SCALE: Activities may be completed with or without assistive devices. 9-Nvhbiydeqz-exneihn completes the activity by him/herself with no assistance from a helper. 5-Set-up or Clean-up Assistance-helper sets up or cleans up; patient completes activity. [place] assists only prior to or following the activity. 4-Supervision or Touching Assistance-helper provides verbal cues and/or touching/steadying and/or contact guard assistance as patient completes activity. Assistance may be provided throughout the activity or intermittently. 3-Partial/Moderate Assistance-helper does LESS THAN HALF the effort. [place] lifts, holds or supports trunk or limbs, but provides less than half the effort. 2-Substantial/Maximal Assistance-helper does MORE THAN HALF the effort. [place] lifts or holds trunk or limbs and provides more than half the effort. 0-Kmnkprory-iqgjgo does ALL the effort. Patient does none of the effort to complete the activity. Or, the assistance of 2 or more helpers is required for the patient to complete the activity. If activity was not attempted, code reason: 7-Patient Refused. 9-Not Applicable-not attempted and the patient did not perform the activity before the current illness, exacerbation or injury. 10-Not Attempted due to Environmental Limitations-(lack of equipment, weather restraints, etc.). 88-Not Attempted due to Medical Conditions or Safety Concerns. Bed Mobility: 7 Transfers (B,C,W/C): 7 Gait: 7 Stairs: 7 Indoor Mobility (Ambulation): Independent Stairs: Independent Prior Devices Use: None Pt recently on ARU, home for approximately one week prior to this most recent admission to outside facility. Pt reports that prior to that ARU admission she was completely (I). States that after discharge from ARU she was using a SPC but was also (I) within the home. On 2L O2 at all times, uses concentrator with extended tubing. PT Evaluation-Current Subjective Pt denies pain upon evaluation. States she does experience (R) hip pain at 8/10 with fatigue with ambulation which decreases but does not completely resolve with rest. Pt reports she has experienced this prior to hospitalizations but feels it is increased as of late. Reports mildly SOA with ambulation but sats 92% on 2L. Pt/Family Goals Home with spouse Objective Patient Orientation: Person, Place, Time, Situation ROM/Strength ROM Upper Extremities See OT ROM Lower Extremities WFL for functional mobility Strength Upper Extremities See OT Strength Lower Extremities Grossly 4/5 (B) LE Integumentary/Posture Integumentary See nurses' notes Bowel Incontinence: No Bladder Incontinence: No Posture flexed, grossly WFL Neuromuscular (Tone, Coordination, Reflexes) grossly unremarkable Sensory Vision: Wears Glasses (reading) Hearing: Functional Hand Dominance: Left Sensation Right Lower Extremit: Intact Sensation Left Lower Extremity: Intact Transfers Roll Left to Right (QC): 6 Sit to Lying (QC): 6 Lying to Sitting/Side of Bed(Q: 6 Sit to Stand (QC): 4 Chair/Qjx-ov-Scxxe Xfer(QC): 4 Car Transfer (QC): 4 Gait Does the Patient Walk?: Yes Mode of Locomotion: Walk Anticipated Mode of Locomotion: Walk Walk 10 feet (QC): 4 Walk 50 ft with 2 Turns(QC): 4 Walk 150 ft (QC): 4 Walking 10ft/uneven surface-QC: 4 Distance: 150 Gait Assistive Device: None Comments/Gait Description Pt ambulated without AD with CGA-close SBA x 150'. Mildly SOA but sats >92% on 2L Wheelchair Training Does the Pt Use a Wheelchair?: No Wheel 50 ft with 2 turns (QC): 9 Wheel 150 ft (QC): 9 Type of Wheelchair: Manual Pt does not use a WCH and will not require one upon discharge. Stairs #of Steps: 12 1 Step (curb) (QC): 4 4 Steps (QC): 4 12 Steps (QC): 4 Reciprocal ascending, step-to descending Balance Sitting Static: Normal Sitting Dynamic: Normal Standing Static: Good Standing Dynamic: Fair Picking up an Object (QC): 4 Assessment/Needs Pt would benefit from short term skilled PT to restore safe, (I) functional mobility to return home with spouse. Rehab Potential: Good PT Short Term Goals Short Term Goals Time Frame: Feb 24, 2019 Sit to stand: 6 Toilet transfer: 6 PT Game Designer Goals Jail Goals PT Game Designer Goals Time Frame: Mar 03, 2019 Roll Left & Right (QC): 6 Sit to Lying (QC): 6 Lying-Sitting on Side/Bed(QC): 6 Sit to Stand (QC): 6 Chair/Tnb-wp-Korno Xfer(QC): 6 Toilet Transfer (QC): 6 Car Transfer (QC): 6 Does the Patient Walk: Yes Walk 10 feet (QC): 6 Walk 50ft with 2 Turns (QC): 6 Walk 150 ft (QC): 6 Walking 10ft on Uneven Surface: 6 1 Step (curb) (QC): 6 4 Steps (QC): 6 12 Steps (QC): 6 Picking up an Object (QC): 6 Does the Pt use WC or Scooter?: No Type: N/A Type: N/A PT LTGs established to allow safe, (I) return home with spouse. PT Plan Problem List Problem List: Activity Tolerance, Functional Strength, Safety, Balance, Gait, Transfer Treatment/Plan Treatment Plan: Continue Plan of Care Treatment Plan: Education, Functional Activity Diane, Functional Strength, Group Therapy, Gait, Safety, Therapeutic Exercise, Transfers Treatment Duration: Mar 03, 2019 Frequency: Modified Program (IRF) (03/10) Estimated Hrs Per Day: 1.5 hours per day Patient and/or Family Agrees t: Yes Safety Risks/Education Teaching Recipient: Patient Teaching Methods: Discussion Response to Teaching: Reinforcement Needed PT POC Discharge Recommendations Therapy Discharge Recommendati: Home & Family Time/GCodes Time In: 1450 Time Out: 1600 Total Billed Treatment Time: 60 Total Billed Treatment 1, EVLOWC x 10', FA x 50' Co-treat with OT due to fatigue from [facility] transport, reports of SOA/fatigue with activity. PT addressing sitting/standing balance, functional mobility. OT addressing ADLs, energy conservation. BRANDEN COWART DPT Feb 17, 2019 15:29 POS
--- NOTE | 2019-02-17 16:05 | Occupational Therapy Eval ---
OT Evaluation-General/PLF Medical Diagnosis Admission Date Feb 17, 2019 at 14:50 Medical Diagnosis: encephalopathy, respiratory failure Onset Date: Feb 05, 2019 Therapy Diagnosis Therapy Diagnosis: decreased self care skills Height/Weight Height (Feet): 5 Height (Inches): 4.00 Weight (Pounds): 219 Weight (Ounces): 1.0 Precautions Precautions/Isolations: Fall Prevention, Standard Precautions Referral Physician: Jessica Medical History Pertinent Medical History: Atrial Fib, CAD, COPD, DM, GERD, HTN Additional Medical History sleep apnea, OA Reviewed History: Yes Social History Home: Single Level Current Living Status: Spouse Entry Into Home: Stairs Without Railing Steps Into Home: 3 ADL-Prior Level of Function SCALE: Activities may be completed with or without assistive devices. 1-Rrirykdrbg-czhkgaj completes the activity by him/herself with no assistance from a helper. 5-Set-up or Clean-up Assistance-helper sets up or cleans up; patient completes activity. Gamaliel assists only prior to or following the activity. 4-Supervision or Touching Assistance-helper provides verbal cues and/or touching/steadying and/or contact guard assistance as patient completes activity. Assistance may be provided throughout the activity or intermittently. 3-Partial/Moderate Assistance-helper does LESS THAN HALF the effort. Gamaliel lifts, holds or supports trunk or limbs, but provides less than half the effort. 2-Substantial/Maximal Assistance-helper does MORE THAN HALF the effort. Gamaliel lifts or holds trunk or limbs and provides more than half the effort. 9-Hhplmbwgx-dwmbhn does ALL the effort. Patient does none of the effort to complete the activity. Or, the assistance of 2 or more helpers is required for the patient to complete the activity. If activity was not attempted, code reason: 7-Patient Refused. 9-Not Applicable-not attempted and the patient did not perform the activity before the current illness, exacerbation or injury. 10-Not Attempted due to Environmental Limitations-(lack of equipment, weather restraints, etc.). 88-Not Attempted due to Medical Conditions or Safety Concerns. ADL PLOF Comments Pt reports being independent with ADLs and transfers. Pt states she does the cooking and cleaning. Self Care: Independent DME/Equipment: Bath Chair, Grab Bars, Tub/Shower Drive Self: Yes OT Current Status Subjective Pt agreeable to therapy. Pt reports right hip pain 8/10 with fatigue with ambulation which decreases but does not completely resolve with rest. Mental Status/Objective Patient Orientation: Person, Place Attachments: Oxygen (2L) Current Glasses/Contacts: Yes (reading) Hearing Aids: No Dentures/Partials: No Hand Dominance: Left Upper Extremity ROM WFL Upper Extremity Coordination Intact. Pt does have some shakiness with fatigue. Upper Extremity Sensation Intact per pt report Upper Extremity Strength Grossly 4/5 ADL-Treatment Eating (QC): 6 (per report) Oral Hygiene (QC): 4 (Pt performed grooming tasks at sink. Pt brushed teeth with SBA. Pt fatigued with activity and required seated rest break. Pt finished grooming by brushing hair while seated secondary to fatigue. Pt SOB with activity, but O2 sats >91%.) Shower/Bathe Self (QC): 4 (Pt performed bathing tasks using hand held shower. CGA for balance during lower body bathing.) Upper Body Dressing (QC): 5 (doff/don pullover shirt with set up) Lower Body Dressing (QC): 4 (Don pants with CGA for balance during standing for pant hike) On/Off Footwear (QC): 4 (SBA while seated EOB.) Toileting Hygiene (QC): 4 Toilet Transfer (QC): 4 Pt arrived from outside facility via w/c van. After initial evaluation, co-treat with PT secondary to impaired activity tolerance impacting safe functional task completion. OT focusing on ADL tasks, energy conservation, and safety. Pt focusing on functional mobility, dynamic sitting and standing balance. Pt sitting in chair with needs met after session. Education OT Patient Education: Rehab process Teaching Recipient: Patient Teaching Methods: Discussion Response to Teaching: Verbalize Understanding OT Longterm Goals Longterm Goals Time Frame: Mar 03, 2019 Eating (QC): 6 Oral Hygiene (QC): 6 Toileting Hygiene (QC): 6 Shower/Bathe Self (QC): 6 Upper Body Dressing (QC): 6 Lower Body Dressing (QC): 6 On/Off Footwear (QC): 6 Additional Goals: 1-Demonstrate ADL Tasks, 2-Verbalize Understanding, 3- ImproveStrength/Diane 1=Demonstrate adherence to instructed precautions during ADL tasks. 2=Patient will verbalize/demonstrate understanding of assistive devices/alessandra fications for ADL. 3=Patient will improve strength/tolerance for activity to enable patient to perform ADL's. OT Education/Plan Problem List/Assessment Assessment: Decreased Activ Tolerance, Decreased UE Strength, Dependent Transfers, Impaired Self-Care Skills Pt to benefit from skilled OT intervention for ADL training, transfers, stren gthening, and safety education to increase level of independence and allow safe discharge home. Discharge Recommendations Plan/Recommendations: Continue POC Treatment Plan/Plan of Care Treatment,Training & Education: Yes Patient would benefit from OT for education, treatment and training to promote independence in ADL's, mobility, safety and/or upper extremity function for ADL's. Plan of Care: ADL Retraining, Functional Mobility, Group Exercise/Act as Ind, UE Funct Exercise/Act Treatment Duration: Mar 03, 2019 Frequency: Modified Program (IRF) (03/10) Estimated Hrs Per Day: 1.5 hours per day Rehab Potential: Good Time/GCodes Start Time: 15:00 Stop Time: 16:00 Total Time Billed (hr/min): 60 Billed Treatment Time 1 visit, EVL(10minutes), ADLx3(50minutes) (Co-treat with PT 50minutes) STACIA ESPOSITO OT Feb 17, 2019 16:05 POS
[2019-02-17 16:12] VITALS: BP 126/66
[2019-02-17] MEDS ORDERED: [UNRECOGNIZED DRUG - OTHER] PO PRN (16:15)
[2019-02-17] MEDS ORDERED: CYCLOBENZAPRINE 10 MG (FLEXERIL) TAB PO PRN (16:15)
[2019-02-17] MEDS ORDERED: DOCUSATE SODIUM PO PRN (16:15)
[2019-02-17] MEDS ORDERED: RT-ALBUTEROL/IPRATROPIUM 3 ML (DUONEB) VIAL IH PRN (16:15)
[2019-02-17] MEDS ORDERED: SENNOSIDES PO PRN (16:15)
--- NOTE | 2019-02-17 16:15 | ST Cognitive Linguistic Eval ---
Speech Evaluation-General Medical Diagnosis encephalopathy, respiratory failure Onset Date: Feb 05, 2019 Therapy Diagnosis Therapy Diagnosis: Cognitive-communication Referral Referring Physician: Dr. Lopez Medical History Pertinent Medical History: Atrial Fib, CAD, COPD, DM, GERD, HTN Reviewed History: Yes Social History Current Living Status: Spouse Speech PLF-Current Status Prior Level of Function Patient lived at home with her where she was independent for most of her daily needs. Subjective Patient was cooperative with the cognitive assessment. Language Eval: Auditory Comprehends Simple Yes/No Ques: Functional Indent/Objects Multiple Rankin: Functional Ident/Pics in Multiple Rankin: Functional Follows 1-Step Commands: Functional Follows Complex Directions: Functional Follows General Conversations: Functional Language Eval: Verbal Language Completes Spontaneous Greeting: Functional Produces Auto, Serial Info: Functional Imitates Simple Words/Phrases: Functional Word Finding: Functional Requests Basic Needs: Functional States Basic Personal Info: Functional Expresses Complex Ideas: Functional Objective Cognitive Domain Attention: WNL Memory: Mild Problem Solving: Functional Executive Functions: WNL Visuospatial Skills: WNL Composite Severity Rating: WNL Clock Drawing Severity Rating: WNL Objective Formal/Standardized Tests [facility] Mental Status ([facility]) Results 28/30, normal range of function Oral Motor/Speech Production Within Normal Limits Impression The patient is a re-admission to the ARU due to decline in health. Patient was given the SLUMS with a score of 28/30 which falls in the normal range of function. The patient does not require further skilled ST services. Speech Patient Assess Expression of Ideas/Wants: Expression (4) Understanding Verbal Content: Understands (4) Brief Interview-Mental Status: Yes Repetition of Three Words: Three (3) Temporal Orientation: Year: Correct (3) Temporal Orientation: Month: Accurate within 5 days(2) Temporal Orientation: Day: Correct (1) Recall : Wear to say "Sock": Yes, no cue required (2) Recall : Color: Yes, no cue required (2) Recall : Bed: Yes, no cue required (2) Memory/Recall Ability: Current season, Location of own room, That he or she is in a hsp/hsp unit Speech-Plan Patient/Family Goals Patient/Family Goals: The patient plans on returning to her home where she lives with her . Treatment Plan Speech Therapy Treatment Plan: Discontinue ST The patient does not require further ST services at this time. Treatment Duration: Feb 17, 2019 Frequency: 1 time per week Estimated Hrs Per Day: .25 hour per day Rehab Potential: Good Barriers to Learning: None identified Pt/Family Agrees to Plan: Yes Safety Risks/Education Teaching Recipient: Patient Teaching Methods: Discussion Response to Teaching: Verbalize Understanding Education Topics Provided: Safety within her room and communication of her wants/needs. Time Speech Therapy Time In: 16:00 Speech Therapy Time Out: 16:15 Total Billed Time: 15 Billed Treatment Time 1, CLIFFORD Lopez Feb 17, 2019 16:14 POS
--- NOTE | 2019-02-17 16:27 | PM&R Post Admission Assessment ---
PM&R HP Date of Visit: Feb 17, 2019 Time of Visit: 16:10 History of Present Illness Chief complaint: Critical illness myopathy with encephalopathy History of present illness: This is a 63-year-old white female of [facility] who is known to me from prior inpatient rehabilitation stay after significant respiratory failure managed in ICU and MedSurg ultimately went home in improved condition on home oxygen with the help of cardiology and pulmonology consultations who remained at home for a week and a half and then began having confusion went to the [place] ER found to have severe bradycardia of the 20 range with respiratory failure and renal failure. She was transferred up to [facility]. Loop recorder was maintained which was placed in her last admission here it via [facility]. Patient underwent echocardiogram and multiple cardiac test never revealing the significant source of her acute decompensation. Multiple meds were discontinued including Cardizem and clonidine along with multiple others that could have been the cause. We will consult cardiology and pulmonology while she is recovering in inpatient rehabilitation. She also had an EGD and colonoscopy and capsule endoscopy with no blood loss revealed. She did have a colon polyp and pathology is pending at that time. She overall has done very well and is looking forward to recovering and likely will remain here for 1 week. Past Rjkgftv-Ncdrbq-Imchjp Hx Past Med/Social Hx: Reviewed Nursing Past Med/Soc Hx, Reviewed and Corrections made Patient Social History Marrital Status: Employed/Student: unemployed Smoking Status: Former Smoker Former Smoker, Quit: Mar 24, 1997 Type Used: Cigarettes 2nd Hand Smoke Exposure: No Recent Foreign Travel: No Contact w/other who traveled: No Recent Hopitalizations: Yes Recent Infectious Disease Expo: No Immunizations Up To Date Tetanus Booster (TDap): Unknown Pediatric: Yes Date of Pneumonia Vaccine: Mar 05, 2013 Date of Influenza Vaccine: Jan 12, 2019 Seasonal Allergies Seasonal Allergies: No Past Medical History Surgeries: Coronary Stent, Gallbladder, Hysterectomy, Orthopedic Respiratory: COPD, Pneumonia, Sleep Apnea Currently Using CPAP: Yes Cardiac: Atrial Fibrillation, Coronary Artery Disease, High Cholesterol, Hypertension Reproductive: No Genitourinary: Bladder Infection, Renal Failure Gastrointestinal: Gastroesophageal Reflux, Chronic Constipation, Pancreatitis Musculoskeletal: Arthritis Endocrine: Diabetes, Insulin dep, Diabetes, Non-Insulin dep Loss of Vision: Denies Hearing Impairment: Denies Psychosocial: Anxiety History of Blood Disorders: No Family History Diabetes, Hypertension Prior Level of Function Bed Mobility: 7 Transfers: 7 Gait: 7 Stairs: 7 Indoor Mobility (Ambulation): Independent Stairs: Independent Prior Devices Use: None Self Care: Independent Occupation: retired Drive Self: Yes Current Level of Fuctioning Roll Left to Right: 6 Sit to Lyin Lying to Sitting/Side of Bed: 6 Sit to Stand: 4 Chair/Xnb-wx-Lozkh Xfer: 4 Car Transfer: 4 Does the Patient Walk: Yes Mode of Locomotion: Walk Anticipated Mode of Locomotion: Walk Walk 10 feet: 4 Walk 50 ft with 2 Turns: 4 Walk 150 ft: 4 Walking 10ft on uneven surface: 4 Gait Assistive Device: None Does the Pt Use a Wheelchair: No Wheel 50 ft with 2 turns: 9 Wheel 150 ft: 9 Type of Wheelchair: Manual #of Steps: 12 1 Step (curb): 4 4 Steps: 4 12 Steps: 4 Picking up an Object: 4 Eatin (per report) Oral Hygiene: 4 (Pt performed grooming tasks at sink. Pt brushed teeth with SBA. Pt fatigued with activity and required seated rest break. Pt finished grooming by brushing hair while seated secondary to fatigue. Pt SOB with activity, but O2 sats >91%.) Shower/Bathe Self: 4 (Pt performed bathing tasks using hand held shower. CGA for balance during lower body bathing.) Upper Body Dressin (doff/don pullover shirt with set up) Lower Body Dressin (Don pants with CGA for balance during standing for pant hike) On/Off Footwear: 4 (SBA while seated EOB.) Toileting Hygiene: 4 Toilet Transfer: 4 PM&R Allergy/Meds/Data Review Allergies Coded Allergies: morphine (Verified Adverse Reaction, Severe, hallucination, 07/12/18) Home Medications Scheduled Amlodipine Besylate (Amlodipine Besylate), 10 MG PO DAILY, (Reported) Aspirin (Aspirin EC), 81 MG PO DAILY, (Reported) Atorvastatin Calcium (Atorvastatin Calcium), 40 MG PO DAILY, (Reported) Cinnamon Bark (Cinnamon), 500 MG PO BID, (Reported) Dulaglutide (Trulicity), 0.75 MG SC [place], (Reported) Empagliflozin (Jardiance), 10 MG PO DAILY, (Reported) Fenofibrate,Micronized (Fenofibrate), 134 MG PO HS, (Reported) Gabapentin (Gabapentin), 600 MG PO TID, (Reported) Insulin Aspart (Novolog), 10 UNIT SQ TIDAC, (Reported) Insulin Determir (Levemir), 15 UNITS SQ HS, (Reported) Isosorbide Mononitrate (Isosorbide Mononitrate ER), 60 MG PO DAILY, (Reported) Magnesium Oxide (Magnesium), 400 MG PO HS, (Reported) Metoprolol Tartrate (Metoprolol Tartrate), 50 MG PO BID, (Reported) Multivitamin-Min/Iron/FA/Vit K (Multi-Day Plus Minerals Tablet), 1 TAB PO DAILY, (Reported) [place]-3/Dha/Epa/Fish Oil (Fish Oil 1,000 mg Softgel), 1,000 MG PO DAILY, (Reported) Pantoprazole Sodium (Pantoprazole Sodium), 40 MG PO DAILY, (Reported) Primidone (Mysoline), 50 MG PO HS, (Reported) Rivaroxaban (Xarelto), 15 MG PO DAILY, (Reported) Spironolactone (Aldactone), 25 MG PO DAILY, (Reported) Torsemide (Torsemide), 10 MG PO DAILY, (Reported) Scheduled PRN Cyclobenzaprine HCl (Cyclobenzaprine HCl), 20 MG PO BID PRN for MUSCLE SPASMS, (Reported) Ipratropium/Albuterol Sulfate (Iprat-Albut 0.5-3(2.5) mg/3 ml), 3 ML IH BID PRN for SHORTNESS OF BREATH, (Reported) Sennosides/Docusate Sodium (Stool Softener-Stimulant Lax), 1 TAB PO DAILY PRN for CONSTIPATION-6TH LINE, (Reported) Discontinued Medications Clonidine HCl (Clonidine HCl), 0.1 MG PO BID, (Reported) Discontinued Reason: No Longer Taking Diltiazem HCl (Diltiazem 24Hr Cd), 240 MG PO DAILY Discontinued Reason: No Longer Taking Dronedarone HCl (Multaq), 400 MG PO BID, (Reported) Discontinued Reason: No Longer Taking Hydralazine HCl (Hydralazine HCl), 10 MG PO TID, (Reported) Discontinued Reason: No Longer Taking Hydrocodone/Acetaminophen (Hydrocodon-Acetaminophn 10-325), 1 TAB PO TID PRN for PAIN-MODERATE, (Reported) Discontinued Reason: No Longer Taking Insulin Aspart (Novolog), 7 UNIT SC AC Discontinued Reason: Duplicate Order Insulin Determir (Levemir), 10 UNIT SQ HS Discontinued Reason: Duplicate Order Ipratropium/Albuterol Sulfate (Iprat-Albut 0.5-3(2.5) mg/3 ml), 3 ML INH RTBID Discontinued Reason: Duplicate Order Rivaroxaban (Xarelto Tablet), 15 MG PO DAILY@1700 Discontinued Reason: Duplicate Order Current Medications Current Medications Reviewed Laboratory Data Laboratory Tests 02/17/19 15:59: Glucometer 108 Review of Systems Constitutional: see HPI, malaise, weakness EENTM: no symptoms reported Respiratory: dyspnea on exertion Cardiovascular: no symptoms reported Gastrointestinal: no symptoms reported Genitourinary: no symptoms reported Musculoskeletal: back pain, joint pain Skin: no symptoms reported Psychiatric/Neurological: Anxiety, Depressed, Numbness, Weakness All Other Systems Reviewed Negative Unless Noted: Yes Physical Exam Physical Exam Vital Signs Vital Signs - First Documented 02/17/19 16:12 Temp 36.2 Pulse 85 Resp 18 B/P (MAP) 126/66 Pulse Ox 92 O2 Delivery Nasal Cannula O2 Flow Rate 2.00 Capillary Refill : Height, Weight, BMI Height: 5'4.00" Weight: 219lbs. 1.0oz. 99.740434ig; 35.13 BMI Method:Stated General Appearance: No Apparent Distress, WD/WN, Chronically ill, Obese Eyes: Bilateral Eye Normal Inspection, Bilateral Eye PERRL HEENT: PERRL/EOMI, Normal ENT Inspection, Pharynx Normal Neck: Full Range of Motion, Normal Inspection, Non Tender, Supple, Carotid Bru it Respiratory: Chest Non Tender, Lungs Clear, No Accessory Muscle Use, No Respiratory Distress, Decreased Breath Sounds Cardiovascular: Regular Rate, Rhythm, No Edema, No Gallop, No JVD, No Murmur, Normal Peripheral Pulses Gastrointestinal: Normal Bowel Sounds, No Organomegaly, No Pulsatile Mass, Non Tender, Soft Back: Normal Inspection, No CVA Tenderness, No Vertebral Tenderness Extremity: Normal Capillary Refill, Normal Inspection, Normal Range of Motion, Non Tender, No Calf Tenderness, No Pedal Edema Neurologic/Psychiatric: Alert, Oriented x3, No Motor/Sensory Deficits, Normal Mood/Affect Skin: Normal Color, Warm/Dry Lymphatic: No Adenopathy PM&R Medical Assessment & Plan REHAB/MEDICAL ASSESSMENT AND PLAN: REHAB IMPAIRMENT GROUP: Critical illness myopathy with encephalopathy ETIOLOGIC DIAGNOSIS: Myopathy with encephalopathy The comorbidities that impact the patients function and/or functional outcome by: Severe acute on chronic respiratory failure episodes, atrial fibrillation, renal failure, diabetes mellitus REHAB PLAN: The patient is being admitted to our comprehensive inpatient rehabilitation facility and can tolerate the intensity of service consisting of at least: 180 minutes of therapy a day, 5 out of 7 days a week Rehab treatment will consist of: PT will focus on regaining ambulatory ability with strengthening, OT will focus on regaining ADLs The patient/family has a good understanding of our discharge process and will benefit from an interdisciplinary inpatient rehabilitation program. The patient has potential to make improvement and is in need of at least two of the following multidisciplinary therapies including but not limited to physical, occupational, speech, and prosthetics and orthotics. Additionally the patient will need services from respiratory, nutritional services, wound care, psychology, etc. (Customize this to each patient). Given the patients complex condition and risk of further medical complications, rehabilitation services cannot be safely or effectively provided at a lower level of care such as a usp facility. BARRIERS TO DISCHARGE: Respiratory status to become strong enough to prevent readmission ESTIMATED LOS: 7 days DISPOSITION: Home RELEVANT CHANGES SINCE PREADMISSION SCREENING: I have compared the patients medical and functional status at the time of the preadmission screening and there are: no changes PROGNOSIS: Good REHABILITATION GOALS: 1. PT will help build confidence and strengthening in order to compensate for respiratory failure 2. OT will help regain independence with ADLs in order to function at home with her All the above goals were reviewed with the patient and he/she is in agreement. By signing this document, I acknowledge that I have personally performed a full physical examination on this patient within 24 hours of admission to this inpatient rehabilitation facility and have determined the patient to be able to tolerate the above course of treatment at an intensive level for a reasonable period of time. I will be completing a detailed individualized Plan of Care for this patient by day #4 of the patients stay based upon the Preadmission Screen, the Post-Admission Evaluation, and the therapy evaluations. Admission Dx/Comorbidities: (1) Debility ICD Codes: R53.81 - Other malaise (2) Encephalopathy ICD Codes: G93.40 - Encephalopathy, unspecified (3) Diabetes mellitus, type 2 Status: Chronic ICD Codes: E11.9 - Type 2 diabetes mellitus without complications (4) CKD (chronic kidney disease) Status: Chronic ICD Codes: N18.9 - Chronic kidney disease, unspecified (5) GERD (gastroesophageal reflux disease) Status: Chronic ICD Codes: K21.9 - Gastro-esophageal reflux disease without esophagitis (6) A-fib ICD Codes: I48.91 - Unspecified atrial fibrillation (7) HTN (hypertension) Status: Chronic ICD Codes: I10 - Essential (primary) hypertension (8) HLD (hyperlipidemia) Status: Chronic ICD Codes: E78.5 - Hyperlipidemia, unspecified (9) COPD (chronic obstructive pulmonary disease) ICD Codes: J44.9 - Chronic obstructive pulmonary disease, unspecified (10) RESPIRATORY FAILURE, UNSP, UNSP W HYPOXIA OR HYPERCAPNIA ICD Codes: J96.90 - RESPIRATORY FAILURE, UNSP, UNSP W HYPOXIA OR HYPERCAPNIA (11) Multilevel degenerative disc disease ICD Codes: M53.9 - Dorsopathy, unspecified (12) Lumbar spondylosis ICD Codes: M47.816 - Spondylosis without myelopathy or radiculopathy, lumbar region (13) Bradycardia Status: Acute ICD Codes: R00.1 - Bradycardia, unspecified ZACK ESCOBEDO DO Feb 17, 2019 16:27 POS
[2019-02-17] MEDS ORDERED: SENNA W/DOCUSATE (SENOKOT S) TABLET PO PRN (16:30)
[2019-02-17 18:08] VITALS: BP 148/66
--- NOTE | 2019-02-17 19:29 | Consultation-Cardiology ---
HPI-Cardiology Cardiology Consultation: Date of Consultation 02/17/19 Time Seen by a Provider: 18:30 Date of Admission Attending Physician Shanae Lopez DO Admitting Physician Obdulio Cabral MD Consulting Physician CHRIS MAGAÑA MD, MA, FACP, FACC, [facility] [place] CCDS Primary kiln stoker: Dr West HPI: Chief Complaint: Reason for consultation: H/o CAD and SSS HPI 63 yo woman admitted by Dr Lopez to her service after being transferred from [facility], where she was hospitalized for loss of consciousness for which she had gone to the [facility] and then transferred to the [facility] in mid Jan 2019. She states she has one other episode of loss of consciousness this year and states was told she had low heart beat because her "system had shut down" from various meds she was on. She denies cp or palp or syncope. She has chronic, mild to mod, exertional shortness of breath She does not report ankle swelling She notes gen malaise and weakness Review of Systems-Cardiology Review of Systems Constitutional: As described under HPI Eyes: No vision change Ears/Nose/Throat: No ear discharge, No nasal drainage, No recent hearing loss Respiratory: As described under HPI Cardiovascular: As described under HPI Gastrointestinal: No constipation, No diarrhea, No nausea, No vomiting Genitourinary: No dysuria, No hematuria, No urine frequency changes Musculoskeletal: No back pain, No joint pain Skin: No rash, No ulcerations Psychiatric/Neurological: No seizure, No focal weakness, No syncope Hematologic: No bleeding abnormalities All Other Systems Reviewed Negative Unless Noted: Yes AJO-Apcmxe-Sdpaht Hx Patient Social History Marrital Status: Employed/Student: unemployed Alcohol Use: Denies Use Recreational Drug Use: No Smoking Status: Former Smoker Type Used: Cigarettes 2nd Hand Smoke Exposure: No Recent Foreign Travel: No Recent Infectious Disease Expo: No Physical Abuse Screen: No Sexual Abuse: No Immunizations Up To Date Tetanus Booster (TDap): Unknown Date of Pneumonia Vaccine: Mar 05, 2013 Date of Influenza Vaccine: Jan 12, 2019 Past Medical History PMH As described under Assessment. Family Medical History Family Medical History: She does not report fam h/o early CAD or SCD Family History: Patient reports no known family medical history. Allergies and Home Medications Allergies Coded Allergies: morphine (Verified Adverse Reaction, Severe, hallucination, 07/12/18) Home Medications Amlodipine Besylate 10 Mg Tablet, 10 MG PO DAILY, (Reported) Aspirin 81 Mg Tablet.dr, 81 MG PO DAILY, (Reported) Atorvastatin Calcium 40 Mg Tablet, 40 MG PO DAILY, (Reported) Cinnamon Bark 500 Mg Capsule, 500 MG PO BID, (Reported) Cyclobenzaprine HCl 10 Mg Tablet, 20 MG PO BID PRN for MUSCLE SPASMS, (Reported) Dulaglutide 0.75 Mg/0.5 Ml Pen.injctr, 0.75 MG SC [place], (Reported) Empagliflozin 10 Mg Tablet, 10 MG PO DAILY, (Reported) Fenofibrate,Micronized 134 Mg Capsule, 134 MG PO HS, (Reported) Gabapentin 600 Mg Tablet, 600 MG PO TID, (Reported) Insulin Aspart 100 Unit/1 Ml Susp, 10 UNIT SQ TIDAC, (Reported) Insulin Determir 1,000 Units/10 Ml Soln, 15 UNITS SQ HS, (Reported) Ipratropium/Albuterol Sulfate 3 Ml Ampul.neb, 3 ML IH BID PRN for SHORTNESS OF BREATH, (Reported) Isosorbide Mononitrate 60 Mg Tab, 60 MG PO DAILY, (Reported) Magnesium Oxide 400 Mg Tablet, 400 MG PO HS, (Reported) Metoprolol Tartrate 50 Mg Tablet, 50 MG PO BID, (Reported) Multivitamin-Min/Iron/FA/Vit K 1 Each Tablet, 1 TAB PO DAILY, (Reported) [place]-3/Dha/Epa/Fish Oil 1 Each Capsule, 1,000 MG PO DAILY, (Reported) Pantoprazole Sodium 40 Mg Tablet.dr, 40 MG PO DAILY, (Reported) Primidone 50 Mg Tablet, 50 MG PO HS, (Reported) Rivaroxaban 15 Mg Tablet, 15 MG PO DAILY, (Reported) Sennosides/Docusate Sodium 1 Each Tablet, 1 TAB PO DAILY PRN for CONSTIPATION- 6TH LINE, (Reported) Spironolactone 25 Mg Tablet, 25 MG PO DAILY, (Reported) Torsemide 10 Mg Tablet, 10 MG PO DAILY, (Reported) Patient Home Medication List Home Medication List Reviewed: Yes Physical Exam-Cardiology Physical Exam Vital Signs/I&O 02/17/19 02/17/19 02/17/19 16:12 17:13 18:08 Temp 36.2 37.0 Pulse 85 80 Resp 18 18 B/P (MAP) 126/66 148/66 (93) Pulse Ox 92 100 O2 Delivery Nasal Cannula Nasal Cannula Nasal Cannula O2 Flow Rate 2.00 2.00 2.00 Capillary Refill : Constitutional: AAO x 3, well-developed, well-nourished HEENT: EOMI, hearing is well preserved; No xanthelasmas are seen Neck: carotid pulses are 2 + bilaterally, with good upstrokes Respiratory: No accessory muscle use; other (fair to good bilateral air entry; prolonged exp) Cardiovascular: regular rate-rhythm, S1 and S2, systolic murmur (soft JN at card base) Gastrointestinal: No tender; soft; No guarding, No rebound; audible bowel sounds Extremities: No clubbing, No cyanosis, No significant edema Neurologic/Psychiatric: oriented x 3, other (moves all limbs equally) Skin: No rash on exposed areas, No ulcerations on exposed areas Data Review Labs Laboratory Tests 02/17/19 15:59: Glucometer 108 A/P-Cardiology Assessment/Admission Diagnosis Recent syncope, apparently due to marked bradycardia at a time that she was on Multaq, Cardizem, and beta-eliseo. Now off Multaq and Cardizem SSS: PAF, h/o bradycardia Stroke prophylaxis with rivaroxaban Severe carotid arterial disease: 80-99% R ICA, 50-79% L ICA (as reported by [facility] on 02/10/19) COPD, history of multiple episodes of exacerbation Acute renal failure in early Jan 2019, managed by Dr Lopez H/o severe anemia of undetermined etiology, managed by Dr Lopez Coronary artery disease, history of stent placement 2 to the LAD: Taxus 320 mm stent in the mid LAD, proximal to that is 312 mm Ion stent. Cardiac catheterization done March 05, 2017 revealed severe LAD stenosis beyond the previously known stent, treated with 3.08 mm ALPINE expanded to 3.5, balloon for in-stent restenosis also was done. Most recent cardiac catheterization done March 09, 2018 revealed patent stent with small vessel disease, no intervention required Hypertension. Renal arterial duplex done July 2015: proximal right renal artery not evaluated, other segments of the left renal artery demonstrated no evidence of significant stenosis Hyperlipidemia Obesity with obesity-hypoventilation and obstructive sleep apnea treated with CPAP Diabetes mellitus II Chronic back pain, history of lumbar surgery in the past Discussion and Recomendations * Complex management * I reviewed records from recent hospitalization at [facility] in * Given SSS, h/o bradycardia, and recent syncope, continue to avoid Multaq and Cardizem. Reduce bb * Monitor labs * Keep on tele for now Clinical Quality Measures DVT/VTE Risk/Contraindication: Risk Factor Score Per Nursin RFS Level Per Nursing on Admit: 4+=Very High CHRIS MAGAÑA MD FACP FAC CCDS Feb 17, 2019 19:28 POS
[2019-02-17] MEDS: FENOFIBRATE 134 MG (LOFIBRA) CAPSULE PO SCH (20:50)
[2019-02-17] MEDS: PRIMIDONE 50 MG TAB (MYSOLINE) PO SCH (20:50)
[2019-02-17] MEDS: GABAPENTIN 600 MG (NEURONTIN) TAB PO SCH (20:50)
[2019-02-17] MEDS: MAGNESIUM OXIDE (MAG-OX)400 MG TAB PO SCH (20:50)
[2019-02-17] MEDS: SENNA W/DOCUSATE (SENOKOT S) TABLET PO SCH (20:51)
[2019-02-17] MEDS: POLYETHYLENE GLYCOL 17 GM (MIRALAX) PACK PO SCH (20:51)
[2019-02-17] MEDS ORDERED: NON-FORMULARY MEDICATION 1 EA EA (Magnesium Oxide (Magnesium) 400 MG) PO SCH (21:00)
[2019-02-17] MEDS ORDERED: CINNAMON BARK 500 MG PO SCH (21:00)
[2019-02-17] MEDS ORDERED: meTOprolol TARTRATE 50 MG (LOPRESSOR) TAB PO SCH (21:00)
[2019-02-17] MEDS ORDERED: DOCUSATE SODIUM 100 MG (COLACE) CAP PO SCH (21:00)
[2019-02-18 05:46] LABS: BASOPHILS % (AUTO) 0 % (0-10); EOSINOPHILS # (AUTO) 0.1 10^3/uL (0.0-0.3); EOSINOPHILS % (AUTO) 2 % (0-10); HEMATOCRIT 29 % (35-52); HEMOGLOBIN 8.8 G/DL (11.5-16.0); LYMPHOCYTES # (AUTO) 1.2 X 10^3 (1.0-4.0); LYMPHOCYTES % (AUTO) 22 % (12-44); MEAN CORPUSCULAR HEMOGLOBIN 26 PG (25-34); MEAN CORPUSCULAR HGB CONC 30 G/DL (32-36); MEAN CORPUSCULAR VOLUME 88 FL (80-99); MEAN PLATELET VOLUME 10.5 FL (7.4-10.4); MONOCYTES # (AUTO) 0.5 X 10^3 (0.0-1.0); MONOCYTES % (AUTO) 10 % (0-12); NEUTROPHILS # (AUTO) 3.5 X 10^3 (1.8-7.8); NEUTROPHILS % (AUTO) 66 % (42-75); PLATELET COUNT 170 10^3/uL (130-400); RED CELL DISTRIBUTION WIDTH 16.5 % (10.0-14.5); WHITE BLOOD COUNT 5.4 10^3/uL (4.3-11.0)
[2019-02-18 05:59] VITALS: BP 171/77
[2019-02-18] MEDS ORDERED: insulin ASPART vial for Pump (NovoLOG) SQ SCH (06:00)
[2019-02-18 06:17] LABS: ALBUMIN 3.6 GM/DL (3.2-4.5); BILIRUBIN,TOTAL 0.3 MG/DL (0.1-1.0); CALCIUM 9.2 MG/DL (8.5-10.1); CREATININE SERUM 1.35 MG/DL (0.60-1.30); MAGNESIUM 2.1 MG/DL (1.6-2.4); POTASSIUM 3.8 MMOL/L (3.6-5.0); TOTAL PROTEIN 7.1 GM/DL (6.4-8.2)
[2019-02-18] MEDS: MULTIVIT W/MINERALS TAB (THERAGRAN M) PO SCH (06:45)
[2019-02-18] MEDS: inSUlin ASPART (NovoLOG) 1 UNIT/0.01 ML (CHARGE PER UNIT) SC SCH ×3 (06:46→16:49)
--- NOTE | 2019-02-18 07:28 | Pulmonary Consultation ---
History of Present Illness History of Present Illness Date Seen by Provider: Feb 18, 2019 Time Seen by Provider: 07:22 Date of Admission History of Present Illness 63yo with hx of COPD transferred to in rehab from [facility] in , where she was hospitalized for loss of consciousness for which she had gone to the [facility] and then transferred to the [facility] in mid Jan 2019. Pt also complains of SOB sana with exertion. No productive cough. Dr. Lopez is consulting me for pulmonary management. Allergies and Home Medications Allergies Coded Allergies: morphine (Verified Adverse Reaction, Severe, hallucination, 07/12/18) Home Medications Amlodipine Besylate 10 Mg Tablet, 10 MG PO DAILY, (Reported) Aspirin 81 Mg Tablet.dr, 81 MG PO DAILY, (Reported) Atorvastatin Calcium 40 Mg Tablet, 40 MG PO DAILY, (Reported) Cinnamon Bark 500 Mg Capsule, 500 MG PO BID, (Reported) Cyclobenzaprine HCl 10 Mg Tablet, 20 MG PO BID PRN for MUSCLE SPASMS, (Reported) Doxazosin Mesylate 1 Mg Tablet, 1 MG PO HS Prescribed by: ZACK LOPEZ on 02/23/192227 Dulaglutide 0.75 Mg/0.5 Ml Pen.injctr, 0.75 MG SC [place], (Reported) Fenofibrate,Micronized 134 Mg Capsule, 134 MG PO HS, (Reported) Fluticasone/Salmeterol 12 Gm Hfa.aer.ad, 2 PUFF IH BID@ Prescribed by: ZACK LOPEZ on 02/23/192227 Gabapentin 600 Mg Tablet, 600 MG PO TID, (Reported) Hydrocodone/Acetaminophen 1 Each Tablet, 1 EA PO TID PRN for PAIN-MODERATE (5- 7), (Reported) Insulin Aspart 100 Unit/1 Ml Susp, 10 UNIT SQ TIDAC, (Reported) Insulin Determir 1,000 Units/10 Ml Soln, 15 UNITS SQ HS, (Reported) Ipratropium/Albuterol Sulfate 3 Ml Ampul.neb, 3 ML IH BID PRN for SHORTNESS OF BREATH, (Reported) Isosorbide Mononitrate 60 Mg Tab, 60 MG PO DAILY, (Reported) Magnesium Oxide 400 Mg Tablet, 400 MG PO HS, (Reported) Metformin HCl 500 Mg Tab.er.24h, 500 MG PO BID, (Reported) Metoprolol Succinate 25 Mg Tab.er.24h, 25 MG PO DAILY Prescribed by: ZACK LOPEZ on 02/23/192227 Multivitamin-Min/Iron/FA/Vit K 1 Each Tablet, 1 TAB PO DAILY, (Reported) [place]-3/Dha/Epa/Fish Oil 1 Each Capsule, 1,000 MG PO DAILY, (Reported) Pantoprazole Sodium 40 Mg Tablet.dr, 40 MG PO DAILY, (Reported) Primidone 50 Mg Tablet, 50 MG PO HS, (Reported) Rivaroxaban 20 Mg Tablet, 20 MG PO DAILY, (Reported) Sennosides/Docusate Sodium 1 Each Tablet, 1 TAB PO DAILY PRN for CONSTIPATION- 6TH LINE, (Reported) Spironolactone 25 Mg Tablet, 25 MG PO DAILY Prescribed by: ZACK LOPEZ on 02/23/192227 Past Ekllyuj-Frfvry-Rajmwk Hx Past Med/Social Hx: Reviewed Nursing Past Med/Soc Hx, Reviewed and Corrections made Patient Social History Alcohol Use: Denies Use Recreational Drug Use: No Smoking Status: Former Smoker Type Used: Cigarettes Former Smoker, Quit: Mar 24, 1997 2nd Hand Smoke Exposure: No Recent Foreign Travel: No Contact w/Someone Who Travel: No Recent Infectious Disease Expo: No Recent Hopitalizations: Yes Immunizations Up To Date Tetanus Booster (TDap): Unknown PED Vaccines UTD: Yes Date of Pneumonia Vaccine: Mar 05, 2013 Date of Influenza Vaccine: Jan 12, 2019 Seasonal Allergies Seasonal Allergies: No Past Medical History Surgeries: Yes (neck and back surgeries) Coronary Stent, Gallbladder, Hysterectomy, Orthopedic Respiratory: Yes Pneumonia, Pulmonary Embolism, Sleep Apnea, COPD Currently Using CPAP: Yes Cardiac: Yes (stents-has loop recorder placement) Atrial Fibrillation, Coronary Artery Disease, High Cholesterol, Hypertension Neurological: No : No Reproductive Disorders: No Genitourinary: No Bladder Infection, Renal Failure Gastrointestinal: Yes Gastroesophageal Reflux, Chronic Constipation, Pancreatitis Musculoskeletal: Yes (CHRONIC HIP PAIN BILATERALLY, FX NECK) Arthritis Endocrine: Yes Diabetes, Insulin dep, Diabetes, Non-Insulin dep Are Your Blood Sugars Over 250: No HEENT: No Loss of Vision: Denies Hearing Impairment: Denies Cancer: No Psychosocial: Yes Anxiety Integumentary: No Blood Disorders: No Family Medical History Patient reports no known family medical history. Diabetes, Hypertension Review of Systems Time Seen by Provider: 13:21 Sepsis Event Evaluation Height, Weight, BMI Height: 5'4.00" Weight: 219lbs. 1.0oz. 99.167453eg; 35.13 BMI Method:Stated Exam Exam Vital Signs Date Time Temp Pulse Resp B/P (MAP) Pulse Ox O2 Delivery O2 Flow Rate FiO2 02/18/19 07:11 98 Nasal Cannula 2.00 02/18/19 05:59 36.7 85 18 171/77 (108) 100 NIV Bilevel 2.00 02/18/19 00:39 86 02/17/19 22:11 95 29 100 40.00 02/17/19 20:47 93 02/17/19 20:10 Nasal Cannula 2.00 02/17/19 18:08 37.0 80 18 148/66 (93) 100 Nasal Cannula 2.00 02/17/19 17:13 Nasal Cannula 2.00 02/17/19 16:12 36.2 85 18 126/66 92 Nasal Cannula 2.00 I & O 02/18/19 07:00 Intake Total 1050 ml Balance 1050 ml Height & Weight Height: 5'4.00" Weight: 219lbs. 1.0oz. 99.387409yj; 35.13 BMI Method:Stated General Appearance: No Apparent Distress, WD/WN, Chronically ill, Obese HEENT: PERRL/EOMI, Normal ENT Inspection, Pharynx Normal Neck: Full Range of Motion, Normal Inspection, Non Tender, Supple, Carotid Bruit Respiratory: Chest Non Tender, Lungs Clear, No Accessory Muscle Use, No Respiratory Distress, Decreased Breath Sounds Cardiovascular: Regular Rate, Rhythm, No Edema, No Gallop, No JVD, No Murmur, Normal Peripheral Pulses Extremity: Normal Capillary Refill, Normal Inspection, Normal Range of Motion, Non Tender, No Calf Tenderness, No Pedal Edema Neurologic/Psychiatric: Alert, Oriented x3, No Motor/Sensory Deficits, Normal Mood/Affect Skin: Normal Color, Warm/Dry Lymphatic: No Adenopathy Results Lab Laboratory Tests 02/18/19 05:29 Assessment/Plan Assessment/Plan S/p recent syncope COPD with hx of multiple AE -oxygen -SVNS, adviar -Will plan out pt PFT -Check CXR Bradycardia, SSS -Cardiology following Acute renal failure -Monitor CAD with hx of stent placement COPD, history of multiple episodes of exacerbation Obesity with JORGE LUIS and probable OHS -pt is on CPAP therapy DM II ELIZABETH FRANCISCO DO Feb 18, 2019 07:28
--- NOTE | 2019-02-18 07:55 | Physical Therapy Daily Note ---
PT Daily Note-Current Subjective Pt agreeable to PT session. States "doing pretty good this morning actually". Pt states she really likes ophthalmic technologist therapy. Pt states that she doesn't have pain at rest, walking hurts the most, R hip and increases to 6/10 but does clear up within minutes of sitting and resting Pain Numeric Pain Scale: 0-No Pain Appearance Pt sitting up on EOB awake and alert upon arrival. At end of session, pt sitting up in recliner with call light, phone and bedside table within reach Mental Status Patient Orientation: Person, Place, Time, Eyes Open, Situation Attachments: Oxygen (2L) Transfers SCALE: Activities may be completed with or without assistive devices. 2-Djwzohwkkv-nnmlquq completes the activity by him/herself with no assistance from a helper. 5-Set-up or Clean-up Assistance-helper sets up or cleans up; patient completes activity. [place] assists only prior to or following the activity. 4-Supervision or Touching Assistance-helper provides verbal cues and/or touching/steadying and/or contact guard assistance as patient completes activi ty. Assistance may be provided throughout the activity or intermittently. 3-Partial/Moderate Assistance-helper does LESS THAN HALF the effort. [place] lifts, holds or supports trunk or limbs, but provides less than half the effort. 2-Substantial/Maximal Assistance-helper does MORE THAN HALF the effort. [place] lifts or holds trunk or limbs and provides more than half the effort. 5-Ajuweecqs-jypbml does ALL the effort. Patient does none of the effort to complete the activity. Or, the assistance of 2 or more helpers is required for the patient to complete the activity. If activity was not attempted, code reason: 7-Patient Refused. 9-Not Applicable-not attempted and the patient did not perform the activity before the current illness, exacerbation or injury. 10-Not Attempted due to Environmental Limitations-(lack of equipment, weather restraints, etc.). 88-Not Attempted due to Medical Conditions or Safety Concerns. Lying to Sitting/Side of Bed(Q: 4 Sit to Stand (QC): 4 pt demonstrating good safe techniques with transitions although slow and cautious Weight Bearing Right Lower Extremity: Right Full Weight Bearing Left Lower Extremity: Left Full Weight Bearing Gait Training Does the Patient Walk?: Yes Distance: 72, 264 Walk 10 feet (QC): 4 Walk 50 ft with 2 Turns(QC): 4 Walk 150 ft (QC): 4 Gait Persons Needed: 1 Gait Assistive Device: FWW slow pace, fatigue with longer distance walked, decreased step length and occasional shuffling, no LOB Exercises NuStep Minutes: 15 NuStep Workload: 6 (seat 6, arms 6, fatigue) Treatments education, safety, transfers, gait, strength, balance, activity tolerance, functional mobility, bed mobility, breathing techniques, lowest SPO2 during session 92% Assessment Current Status: Good Progress PT Short Term Goals Short Term Goals Time Frame: Feb 24, 2019 Sit to stand: 6 Toilet transfer: 6 PT Penitentiary Goals Penitentiary Goals PT Asphalt Paving Superintendent Goals Time Frame: Mar 03, 2019 Roll Left & Right (QC): 6 Sit to Lying (QC): 6 Lying-Sitting on Side/Bed(QC): 6 Sit to Stand (QC): 6 Chair/Kqe-sx-Okdgb Xfer(QC): 6 Toilet Transfer (QC): 6 Car Transfer (QC): 6 Does the Patient Walk: Yes Walk 10 feet (QC): 6 Walk 50ft with 2 Turns (QC): 6 Walk 150 ft (QC): 6 Walking 10ft on Uneven Surface: 6 1 Step (curb) (QC): 6 4 Steps (QC): 6 12 Steps (QC): 6 Picking up an Object (QC): 6 Does the Pt use WC or Scooter?: No Type: N/A Type: N/A PT Plan Treatment/Plan Treatment Plan: Continue Plan of Care Treatment Plan: Education, Functional Activity Diane, Functional Strength, Group Therapy, Gait, Safety, Therapeutic Exercise, Transfers Treatment Duration: Mar 03, 2019 Frequency: Modified Program (IRF) (03/10) Estimated Hrs Per Day: 1.5 hours per day Patient and/or Family Agrees t: Yes Safety Risks/Education Patient Education: Gait Training, Transfer Techniques, Safety Issues Teaching Recipient: Patient Teaching Methods: Discussion Response to Teaching: Verbalize Understanding Time/GCodes Time In: 751 Time Out: 822 Total Billed Treatment Time: 31 Total Billed Treatment 1 visit, GT x1 unit, EX x1 unit AKILAHCHACORTA TEACHER [facility] Feb 18, 2019 07:55 POS
[2019-02-18] MEDS ORDERED: NON-FORMULARY MEDICATION 1 EA EA (Torsemide 10 MG) PO SCH (09:00)
[2019-02-18] MEDS ORDERED: NON-FORMULARY MEDICATION 1 EA EA (Amlodipine Besylate 10 MG) PO SCH (09:00)
[2019-02-18] MEDS: POLYETHYLENE GLYCOL 17 GM (MIRALAX) PACK PO SCH ×2 (09:00→20:56)
[2019-02-18] MEDS ORDERED: NON-FORMULARY MEDICATION 1 EA EA (Empagliflozin (Jardiance) 10 MG) PO SCH (09:00)
[2019-02-18] MEDS ORDERED: NON-FORMULARY MEDICATION 1 EA EA (Spironolactone (Aldactone) 25 MG) PO SCH (09:00)
--- NOTE | 2019-02-18 09:23 | Occupational Ther Daily Note ---
OT Current Status-Daily Note Subjective Pt sitting in chair, agrees to therapy. Pt denies pain at this time. ADL-Treatment Pt sit to stand with supervision. Gait to restroom with FWW. Pt stood at sink to complete grooming tasks. Pt brushed teeth and combed hair with set up. Seated rest break taken after grooming. Gait to therapy gym with FWW, slow pace. Arm bike x8 minutes to increase overall strength and activity tolerance needed for functional task completion. Pt completed task without resistance and with slow pace. Two rest breaks taken during task. Pt does not demonstrate shortness of breath during session and O2 sats were 93-98%. Pt returned to room, sitting in chair with needs met after session. Therapy Code Descriptions/Definitions Functional [place] Measure: 0=Not Assessed/NA 4=Minimal Assistance 1=Total Assistance 5=Supervision or Setup 2=Maximal Assistance 6=Modified [place] 3=Moderate Assistance 7=Complete IndependenceSCALE: Activities may be completed with or without assistive devices. 8-Aeshglkked-iuyqqul completes the activity by him/herself with no assistance from a helper. 5-Set-up or Clean-up Assistance-helper sets up or cleans up; patient completes activity. [place] assists only prior to or following the activity. 4-Supervision or Touching Assistance-helper provides verbal cues and/or touching/steadying and/or contact guard assistance as patient completes activity. Assistance may be provided throughout the activity or intermittently. 3-Partial/Moderate Assistance-helper does LESS THAN HALF the effort. [place] lifts, holds or supports trunk or limbs, but provides less than half the effort. 2-Substantial/Maximal Assistance-helper does MORE THAN HALF the effort. [place] lifts or holds trunk or limbs and provides more than half the effort. 1-Vtpeazdyf-ecdtxv does ALL the effort. Patient does none of the effort to complete the activity. Or, the assistance of 2 or more helpers is required for the patient to complete the activity. If activity was not attempted, code reason: 7-Patient Refused. 9-Not Applicable-not attempted and the patient did not perform the activity before the current illness, exacerbation or injury. 10-Not Attempted due to Environmental Limitations-(lack of equipment, weather restraints, etc.). 88-Not Attempted due to Medical Conditions or Safety Concerns. Oral Hygiene (QC): 5 OT Correction Goals Correction Goals Time Frame: Mar 03, 2019 Eating (QC): 6 Oral Hygiene (QC): 6 Toileting Hygiene (QC): 6 Shower/Bathe Self (QC): 6 Upper Body Dressing (QC): 6 Lower Body Dressing (QC): 6 On/Off Footwear (QC): 6 Additional Goals: 1-Demonstrate ADL Tasks, 2-Verbalize Understanding, 3- ImproveStrength/Diane 1=Demonstrate adherence to instructed precautions during ADL tasks. 2=Patient will verbalize/demonstrate understanding of assistive devices/modifications for ADL. 3=Patient will improve strength/tolerance for activity to enable patient to perform ADL's. OT Education/Plan Discharge Recommendations Plan/Recommendations: Continue POC Treatment Plan/Plan of Care Patient would benefit from OT for education, treatment and training to promote independence in ADL's, mobility, safety and/or upper extremity function for ADL's. Plan of Care: ADL Retraining, Functional Mobility, Group Exercise/Act as Ind, UE Funct Exercise/Act Treatment Duration: Mar 03, 2019 Frequency: Modified Program (IRF) (03/10) Estimated Hrs Per Day: 1.5 hours per day Rehab Potential: Good Time/GCodes Start Time: 08:30 Stop Time: 09:00 Total Time Billed (hr/min): 30 Billed Treatment Time 1 visit, ADL(15minutes), Ex(15minutes) STACIA ESPOSITO OT Feb 18, 2019 09:23 POS
--- NOTE | 2019-02-18 09:31 | Diagnostic Imaging Report ---
Indication: Hypoxia. Comparison: 01/16/2019 Findings: Single view of the chest demonstrates cardiac enlargement with stable central vascular congestion. There is no pneumothorax. Osseous structures are age-appropriate. Impression: Cardiac enlargement with central vascular congestion. Dictated by: Dictated on workstation # [id number]
[2019-02-18] MEDS: PANTOPRAZOLE 40 MG (PROTONIX) TAB PO SCH (09:51)
[2019-02-18] MEDS: GABAPENTIN 600 MG (NEURONTIN) TAB PO SCH ×3 (09:51→20:57)
[2019-02-18] MEDS: ASPIRIN E.C. 81 MG (ECOTRIN) TAB PO SCH (09:51)
[2019-02-18] MEDS: ISOSORBIDE MONONITRATE 60 MG (IMDUR) TAB PO SCH (09:52)
[2019-02-18] MEDS: amLODIPine 10 MG (NORVASC) TAB PO SCH (09:52)
[2019-02-18] MEDS: RIVAROXABAN 15 MG TABLET (XARELTO) PO SCH (09:52)
[2019-02-18] MEDS: TORSEMIDE 20 MG (DEMADEX) TAB PO SCH (09:52)
[2019-02-18] MEDS: OMEGA 3 (FISH OIL) 1000 MG CAP PO SCH (09:52)
[2019-02-18] MEDS: SPIRONOLACTONE 25 MG (ALDACTONE) TAB PO SCH (09:52)
[2019-02-18] MEDS: SENNA W/DOCUSATE (SENOKOT S) TABLET PO SCH ×2 (09:53→20:58)
[2019-02-18 09:55] VITALS: BP 155/77
[2019-02-18] MEDS: RT-ADVAIR HFA 115/21 MCG PER PUFF IH SCH (10:00)
--- NOTE | 2019-02-18 12:30 | PM&R Progress Note ---
Subjective HPI/CC On Admission Date Seen by Provider: Feb 18, 2019 Time Seen by Provider: 11:15 Subjective/Events-last exam Patient doing very well Scared for DC because she doesn't want anything to happen like last time I counseled her and reassured her regarding less meds she is on this time and she will do great once she is home BM+ Checking iron level in case she needs IV iron Checked meds and labs Reviewed therapy notes Conferred with excel expert of Systems General: Fatigue Objective Exam Vital Signs Vital Signs Date Time Temp Pulse Resp B/P (MAP) Pulse Ox O2 Delivery O2 Flow Rate FiO2 02/18/19 14:02 97 Nasal Cannula 2.00 02/18/19 13:00 93 02/18/19 09:55 155/77 (103) 02/18/19 05:59 36.7 18 Capillary Refill : General Appearance: No Apparent Distress, WD/WN, Chronically ill, Obese HEENT: PERRL/EOMI, Normal ENT Inspection, Pharynx Normal Neck: Full Range of Motion, Normal Inspection, Non Tender, Supple, Carotid Bruit Respiratory: Chest Non Tender, Lungs Clear, No Accessory Muscle Use, No Respiratory Distress, Decreased Breath Sounds Cardiovascular: Regular Rate, Rhythm, No Edema, No Gallop, No JVD, No Murmur, Normal Peripheral Pulses Gastrointestinal: Normal Bowel Sounds, No Organomegaly, No Pulsatile Mass, Non Tender, Soft Back: Normal Inspection, No CVA Tenderness, No Vertebral Tenderness Extremity: Normal Capillary Refill, Normal Inspection, Normal Range of Motion, Non Tender, No Calf Tenderness, No Pedal Edema Neurologic/Psychiatric: Alert, Oriented x3, No Motor/Sensory Deficits, Normal Mood/Affect Skin: Normal Color, Warm/Dry Lymphatic: No Adenopathy Results/Procedures Lab Laboratory Tests 02/18/19 05:29 Patient resulted labs reviewed. FIM Transfers Therapy Code Descriptions/Definitions Functional [place] Measure: 0=Not Assessed/NA 4=Minimal Assistance 1=Total Assistance 5=Supervision or Setup 2=Maximal Assistance 6=Modified [place] 3=Moderate Assistance 7=Complete IndependenceSCALE: Activities may be completed with or without assistive devices. 2-Uqsmunxzhy-lbhqbgv completes the activity by him/herself with no assistance from a helper. 5-Set-up or Clean-up Assistance-helper sets up or cleans up; patient completes activity. [place] assists only prior to or following the activity. 4-Supervision or Touching Assistance-helper provides verbal cues and/or touching/steadying and/or contact guard assistance as patient completes activity. Assistance may be provided throughout the activity or intermittently. 3-Partial/Moderate Assistance-helper does LESS THAN HALF the effort. [place] lifts, holds or supports trunk or limbs, but provides less than half the effort. 2-Substantial/Maximal Assistance-helper does MORE THAN HALF the effort. [place] lifts or holds trunk or limbs and provides more than half the effort. 4-Kxolpfylp-pvjdfh does ALL the effort. Patient does none of the effort to complete the activity. Or, the assistance of 2 or more helpers is required for the patient to complete the activity. If activity was not attempted, code reason: 7-Patient Refused. 9-Not Applicable-not attempted and the patient did not perform the activity before the current illness, exacerbation or injury. 10-Not Attempted due to Environmental Limitations-(lack of equipment, weather restraints, etc.). 88-Not Attempted due to Medical Conditions or Safety Concerns. Roll Left to Right (QC): 6 Sit to Lying (QC): 6 Sit to Stand (QC): 4 Chair/Lsb-zm-Cxady Xfer(QC): 4 Car Transfer (QC): 4 Gait Training Does the Patient Walk?: Yes Distance: 72, 264 Walk 10 feet (QC): 4 Walk 50 ft with 2 Turns(QC): 4 Walk 150 ft (QC): 4 Walking 10ft/uneven surface-QC: 4 Gait Persons Needed: 1 Gait Assistive Device: FWW Wheelchair Training Does the Pt Use a Wheelchair?: No Wheel 50 ft with 2 turns (QC): 9 Wheel 150 ft (QC): 9 Type of Wheelchair: Manual Stair Training #of Steps: 12 1 Step (curb) (QC): 4 4 Steps (QC): 4 12 Steps (QC): 4 Balance Picking up an Object (QC): 4 ADL-Treatment Eating (QC): 6 (per report) Oral Hygiene (QC): 5 Shower/Bathe Self (QC): 4 (Pt performed bathing tasks using hand held shower. CGA for balance during lower body bathing.) Upper Body Dressing (QC): 5 (doff/don pullover shirt with set up) Lower Body Dressing (QC): 4 (Don pants with CGA for balance during standing for pant hike) On/Off Footwear (QC): 4 (SBA while seated EOB.) Toileting Hygiene (QC): 4 Toilet Transfer (QC): 4 Assessment/Plan Assessment and Plan Assess & Plan/Chief Complaint Assessment: Severe bradycardia symptomatic s/p Cardiology w/u at [facility] and DC multiple meds AMS/Encephalopathy now resolved Severe anemia s/p EGD/Colon and capsule endoscopy negative results HTN DM labile control HLP Chronic AF Severe COPD O2 dependent Volume overload hx PLan: Appreciate Guillermina Luna and Zach O2 Nebs Home meds on DC list from [facility] Check iron level (1) Debility (2) Encephalopathy (3) Diabetes mellitus, type 2 Status: Chronic (4) CKD (chronic kidney disease) Status: Chronic (5) GERD (gastroesophageal reflux disease) Status: Chronic (6) A-fib (7) HTN (hypertension) Status: Chronic (8) HLD (hyperlipidemia) Status: Chronic (9) COPD (chronic obstructive pulmonary disease) (10) RESPIRATORY FAILURE, UNSP, UNSP W HYPOXIA OR HYPERCAPNIA (11) Multilevel degenerative disc disease (12) Lumbar spondylosis (13) Bradycardia Status: Acute ZACK ESCOBEDO DO Feb 18, 2019 12:30 POS
--- NOTE | 2019-02-18 12:30 | Individualized Plan of Care ---
Individualized Plan of Care Rehab Nursing IPOC Order Admission Date Feb 17, 2019 at 14:50 Current Orders Orders Admission Order(Inpt,Obs,Sdc) (02/17/19 12:14) Vital Signs: Per Unit Policy ( 08,16,00 (02/17/19 12:14) Aroldo Cedillo 09,21 (02/17/19 12:14) Sequential Compression Device Q4H (02/17/19 12:14) Nursing Care Attendant-Inpt Rehab Con (02/17/19 12:14) Rehab Nursing Orders-Ipoc (02/17/19 12:14) Physical Therapy Rehab Orders (02/17/19 12:14) Occupational Therapy Rehab Ord (02/17/19 12:14) Speech Therapy Rehab Orders (02/17/19 12:14) Cbc With Automated Diff (02/18/19 06:00) Comprehensive Metabolic Panel (02/18/19 06:00) Intake & Output 06,14,22 (02/17/19 12:14) Accucheck Achs ACHS (02/17/19 12:14) Precautions (Aru) (02/17/19 12:14) Weekly Weight WEEK (02/17/19 12:14) Rehab-Intensity Of Therapy (02/17/19 12:14) Cho 60g/M 3snack (16-2000 Michele) (02/17/19 Dinner) Initiate Admission Nursing Pro .admission (02/17/19 12:14) Acetaminophen Tablet (Tylenol Tablet) (02/17/19 12:15) Alprazolam Tablet (Xanax Tablet) (02/17/19 12:15) Calcium Carbonate Chew Tablet (Antacid C (02/17/19 12:15) Diphenhydramine Tablet (Benadryl Tablet) (02/17/19 12:15) Docusate Sodium Capsule (Colace Capsule) (02/17/19 21:00) Docusate Sodium Capsule (Colace Capsule) (02/17/19 12:15) Bisacodyl Suppository (Dulcolax Supposit (02/17/19 12:15) Lactulose Oral Solution (Enulose Oral So (02/17/19 12:15) Na Phos/Na Biphos Enema (Fleet Enema Fabiano (02/17/19 12:15) Guaifenesin/Codeine Syrup (Robitussin Ac (02/17/19 12:15) Hydrocodone/Apap 5/325 Tablet (Lortab 5 (02/17/19 12:15) Loperamide Tablet (Imodium Tablet) (02/17/19 12:15) Melatonin Tablet (Melatonin Tablet) (02/17/19 12:15) Polyethylene Glycol Powder Pkt (Miralax (02/17/19 21:00) Ondansetron Injection (Zofran Injectio (02/17/19 12:15) Ondansetron Oral Dissolve Tab (Zofran (02/17/19 12:15) Senna S Tablet (Senokot S Tablet) (02/17/19 21:00) Tramadol Tablet (Ultram Tablet) (02/17/19 12:15) Initiate Admission Nursing Pro .admission (02/17/19 12:14) Patient Visit (02/17/19 ) Pt Eval Low Complexity (02/17/19 ) Functional Activities, Ea 15 (02/17/19 ) Patient Visit (02/17/19 ) Speech Sound Lang Comp (02/17/19 ) Aspirin Enteric Coated Tablet (Ecotrin T (02/18/19 09:00) Atorvastatin Tablet (Lipitor) (02/18/19 09:00) Cyclobenzaprine Tablet (Flexeril Tablet) (02/17/19 16:15) Fenofibrate,Micronized Capsule (Lofibra (02/17/19 21:00) Gabapentin Capsule/Tablet (Neurontin Cap (02/17/19 21:00) Insulin Aspart Vial For Pump (Novolog Vi (02/18/19 06:00) Insulin Determir 10 Ml Vial (Levemir 10 (02/17/19 21:00) Albuterol/Ipra Inhalation Soln (Duoneb I (02/17/19 16:15) Isosorbide Mononitrate Tablet (Imdur Tab (02/18/19 09:00) Metoprolol Tartrate (Ir) Tab (Lopressor (02/17/19 21:00) Pantoprazole Tablet (Protonix Tablet) (02/18/19 09:00) Primidone Tablet (Mysoline Tablet) (02/17/19 21:00) Rivaroxaban Tablet (Xarelto Tablet) (02/18/19 08:00) (Nf) Amlodipine Besylate (02/18/19 09:00) (Nf) Cinnamon Bark (Cinnamon) (02/17/19 21:00) (Nf) Dulaglutide (Trulicity) (02/19/19 16:15) (Nf) Empagliflozin (Jardiance) (02/18/19 09:00) (Nf) Magnesium Oxide (Magnesium) (02/17/19 21:00) (Nf) Multivitamin-Min/Iron/Fa/Vit K (Mul (02/18/19 09:00) (Nf) [place]-3/Dha/Epa/Fish Oil (Fish Oil (02/18/19 09:00) (Nf) Sennosides/Docusate Sodium (Stool S (02/17/19 16:15) (Nf) Spironolactone (Aldactone) (02/18/19 09:00) (Nf) Torsemide (02/18/19 09:00) Insulin Determir (Per Unit) (Levemir (Pe (02/17/19 21:00) Amlodipine Tablet (Norvasc Tablet) (02/18/19 09:00) Insulin Aspart (Novolog) (Novolog (Charg (02/18/19 06:00) Torsemide Tablet (Demadex Tablet) (02/18/19 09:00) Therapeutic Multivitamin Tab (Vitamins, (02/18/19 07:00) [place] 3 Capsule (Fish Oil Capsule) (02/18/19 09:00) Senna S Tablet (Senokot S Tablet) (02/17/19 16:30) Spironolactone Tablet (Aldactone Tablet) (02/18/19 09:00) Magnesium Oxide Tablet (Mag Ox Tablet) (02/17/19 21:00) Consult Physician (02/17/19 18:35) Consult Physician (02/17/19 18:35) Telemetry (02/17/19 19:17) Telemetry Nursing Assessment ( (02/17/19 19:17) Thyroid Stimulating Hormone (02/18/19 05:00) Magnesium (02/18/19 05:00) Echo W Doppler/Color Flow (02/18/19 06:00) Ekg Tracing (02/17/19 19:50) Nursing Communication (Order) (02/17/19 19:50) Ekg Tracing (02/18/19 06:00) Rt Request For Service (02/18/19 06:56) Chest 1 View, Ap/Pa Only (02/18/19 07:21) Albuterol/Ipra Inhalation Soln (Duoneb I (02/18/19 14:00) Svn Small Volume Nebulizer (02/18/19 08:01) Fluticasone/Salmeterol Common (Advair 11 (02/18/19 08:07) Mdi Treatment (02/18/19 08:01) Bipap (Bilevel) Set Up (02/18/19 09:03) Patient Visit (02/18/19 ) Exercise Therap, Ea 15 Min (02/18/19 ) Gait Training, Ea 15 Min (02/18/19 ) Iron Test (Fe) (02/18/19 11:34) Rehab Nursing Orders: Ongoing Assess. of Cognitive Status, Ongoing Assess. of Function Status, Bowel Management, Disease Management & Educaiton, DVT Prophylaxis, Fall Prevention, Fluid/Electrolyte/Nutrition Mgmt, Infection Prevention, Medication Management & Education, Management of Risks & Complications, Management of Skin Intergrity, Nutrition Management, Pain Manag ement, Patient/Family Support, Safety Management Intensity of Therapy to be met Patient to be seen: Min.3h per day/5 of 7d PT IPOC Problem List: Activity Tolerance, Functional Strength, Safety, Balance, Gait, Transfer Treatment Plan: Continue Plan of Care Education, Functional Activity Diane, Functional Strength, Group Therapy, Gait, Safety, Therapeutic Exercise, Transfers Treatment Duration: Mar 03, 2019 Frequency: Modified Program (IRF) (03/10) Estimated Hrs Per Day: 1.5 hours per day OT IPOC Problems: Decreased Activ Tolerance, Decreased UE Strength, Dependent Transfers , Impaired Self-Care Skills OT Treatment, Training and Edu: Yes Plan of Care: ADL Retraining, Functional Mobility, Group Exercise/Act as Ind, UE Funct Exercise/Act Treatment Duration: Mar 03, 2019 Frequency: Modified Program (IRF) (03/10) Estimated Hrs Per Day: 1.[address] IPOC Speech Therapy Treatment Plan: Discontinue ST Treatment Duration: Feb 17, 2019 Frequency: 1 time per week Estimated Hrs Per Day: .25 hour per day Nursing Care Attendant/Case Mgmt Nursing Care Attendant/Case Managemen: Discharge Planning Dietitian/Clay Pigeon Loader Dietitian/Clay Pigeon Loader to monitor nutritional status and make changes and/or recommendations as needed and work with speech pathology on dietary upgrades as the occur. Physician IPOC Medical Issues being managed closely and that require the 24 hour availability of a physician: Recent resp insufficiency and bradycardia will require close 24/7 physician supervision Medical Issues: Bowel/Bladder Function, DVT Prophylaxis, Falls Precautions, Fluid/Electrolyte/Nutrition Balance, Infection Protection, Pain Management, Swallowing Precautions Brief Synthesis of Preadmission Screen, Post-Admission Evaluation, and Therapy Evaluations: PT will focus on strengthening and build confidence in order to be comfortable leaving at DC OT will focus on ADL independence Medical Prognosis: Good Anticipated Length of Stay: 7 days ZACK ESCOBEDO DO Feb 18, 2019 12:30 POS
[2019-02-18] MEDS: RT-ALBUTEROL/IPRATROPIUM 3 ML (DUONEB) VIAL INH SCH (14:02)
--- NOTE | 2019-02-18 14:32 | Progress Note - Cardiology ---
Cardiology SOAP Progress Note Subjective: No cp or palp or syncope or shortness of breath at rest Gen weakness and malaise No N/V Objective: I&O/Vital Signs 02/18/19 02/18/19 02/18/19 02/18/19 05:59 07:00 07:11 09:00 Temp 36.7 Pulse 85 89 Resp 18 B/P (MAP) 171/77 (108) Pulse Ox 100 98 O2 Delivery NIV Bilevel Nasal Cannula Nasal Cannula O2 Flow Rate 2.00 2.00 2.00 02/18/19 02/18/19 02/18/19 09:55 10:00 14:02 Pulse 80 B/P (MAP) 155/77 (103) Pulse Ox 99 97 O2 Delivery Nasal Cannula Nasal Cannula O2 Flow Rate 2.00 2.00 02/18/19 00:00 Intake Total 400 ml Balance 400 ml Weight (Pounds): 219 Weight (Ounces): 1.0 Weight (Calculated Kilograms): 99.967496 Constitutional: AAO x 3, well-developed, well-nourished Respiratory: No accessory muscle use; other (fair to good bilateral air entry; prolonged exp) Cardiovascular: regular rate-rhythm, S1 and S2, systolic murmur (soft JN at card base) Gastrointestional: No tender; soft; No guarding, No rebound; audible bowel sounds Extremities: No clubbing, No cyanosis, No significant edema Neurologic/Psychiatric: oriented x 3, other (moves all limbs equally) Skin: No rash on exposed areas, No ulcerations on exposed areas Results/Procedures: Labs Laboratory Tests 02/17/19 15:59: Glucometer 108 02/17/19 20:35: Glucometer 303H 02/18/19 05:09: Glucometer 183H 02/18/19 05:29: White Blood Count 5.4, Red Blood Count 3.33L, Hemoglobin 8.8L, Hematocrit 29L, Mean Corpuscular Volume 88, Mean Corpuscular Hemoglobin 26, Mean Corpuscular Hemoglobin Concent 30L, Red Cell Distribution Width 16.5H, Platelet Count 170, Mean Platelet Volume 10.5H, Neutrophils (%) (Auto) 66, Lymphocytes (%) (Auto) 22, Monocytes (%) (Auto) 10, Eosinophils (%) (Auto) 2, Basophils (%) (Auto) 0, Neutrophils # (Auto) 3.5, Lymphocytes # (Auto) 1.2, Monocytes # (Auto) 0.5, Eosinophils # (Auto) 0.1, Basophils # (Auto) 0.0, Sodium Level 142, Potassium Level 3.8, Chloride Level 106, Carbon Dioxide Level 26, Anion Gap 10, Blood Urea Nitrogen 16, Creatinine 1.35H, Estimat Glomerular Filtration Rate 40, BUN/Creatinine Ratio 12, Glucose Level 169H, Calcium Level 9.2, Corrected Calcium 9.5, Magnesium Level 2.1, Total Bilirubin 0.3, Aspartate Amino Transf (AST/SGOT) 51H, Alanine Aminotransferase (ALT/SGPT) 42, Alkaline Phosphatase 115, Total Protein 7.1, Albumin 3.6, Thyroid Stimulating Hormone (TSH) 1.24 02/18/19 11:10: Glucometer 250H Laboratory Tests 02/18/19 05:29 A/P: Assessment: Recent syncope, apparently due to marked bradycardia at a time that she was on Multaq, Cardizem, and beta-eliseo. Now off Multaq and Cardizem SSS: PAF, h/o bradycardia. S/p ILR by Dr West in 2018 Echo on 02/18/19: LVEF 60-65%, mild to mod conc LVH, mild enlargement of LA, mild MAC, mild to mod TR, RVSP 44 mmHg Stroke prophylaxis with rivaroxaban Severe carotid arterial disease: 80-99% R ICA, 50-79% L ICA (as reported by [facility] on 02/10/19) COPD, history of multiple episodes of exacerbation Acute renal failure in early Jan 2019, managed by Dr Lopez H/o severe anemia of undetermined etiology, managed by Dr Lopez Coronary artery disease, history of stent placement 2 to the LAD: Taxus 320 mm stent in the mid LAD, proximal to that is 312 mm Ion stent. Cardiac catheterization done March 05, 2017 revealed severe LAD stenosis beyond the previously known stent, treated with 3.08 mm ALPINE expanded to 3.5, balloon for in-stent restenosis also was done. Most recent cardiac catheterization done March 09, 2018 revealed patent stent with small vessel disease, no intervention required Hypertension. Renal arterial duplex done July 2015: proximal right renal artery not evaluated, other segments of the left renal artery demonstrated no evidence of significant stenosis Hyperlipidemia Obesity with obesity-hypoventilation and obstructive sleep apnea treated with CPAP Diabetes mellitus II Chronic back pain, history of lumbar surgery in the past Plan: * Complex management due to multiple comorbidities * Given SSS, h/o bradycardia, and recent syncope, continue to avoid Multaq and Cardizem. We are also hold bb. If still bradycardic after all or this, then perm pacemaker * Add doxazosin for better bp control * Monitor labs * Keep on tele for now * I had a detailed discussion with the patient and explained our treatment plan and its rationale CHRIS MAGAÑA MD FACP FAC CCDS Feb 18, 2019 14:32 POS
[2019-02-18 17:20] VITALS: BP 145/70
[2019-02-18] MEDS: doxAzosin 1 MG (CARDURA) TAB PO SCH (20:56)
[2019-02-18] MEDS: PRIMIDONE 50 MG TAB (MYSOLINE) PO SCH (20:57)
[2019-02-18] MEDS: FENOFIBRATE 134 MG (LOFIBRA) CAPSULE PO SCH (20:57)
[2019-02-18] MEDS: MAGNESIUM OXIDE (MAG-OX)400 MG TAB PO SCH (20:58)
[2019-02-18] MEDS ORDERED: inSUlin ASPART (NovoLOG) 1 UNIT/0.01 ML (CHARGE PER UNIT) SC ONE (21:15)
--- NOTE | 2019-02-18 21:53 | NUR ---
dr valladares notified of high fsbs today, new order received
[2019-02-19] MEDS: RT-ALBUTEROL/IPRATROPIUM 3 ML (DUONEB) VIAL INH SCH ×3 (00:27→15:35)
[2019-02-19] MEDS: RT-ADVAIR HFA 115/21 MCG PER PUFF IH SCH ×2 (00:27→09:15)
[2019-02-19 06:00] VITALS: BP 162/78
[2019-02-19] MEDS: MULTIVIT W/MINERALS TAB (THERAGRAN M) PO SCH (06:22)
[2019-02-19] MEDS: inSUlin ASPART (NovoLOG) 1 UNIT/0.01 ML (CHARGE PER UNIT) SC SCH ×4 (06:22→21:09)
--- NOTE | 2019-02-19 09:19 | NUR ---
Dr uLna here to see pt/No new orders given
[2019-02-19] MEDS: PANTOPRAZOLE 40 MG (PROTONIX) TAB PO SCH (09:25)
[2019-02-19] MEDS: SENNA W/DOCUSATE (SENOKOT S) TABLET PO SCH ×2 (09:25→21:07)
[2019-02-19] MEDS: OMEGA 3 (FISH OIL) 1000 MG CAP PO SCH (09:26)
[2019-02-19] MEDS: ASPIRIN E.C. 81 MG (ECOTRIN) TAB PO SCH (09:26)
[2019-02-19] MEDS: ISOSORBIDE MONONITRATE 60 MG (IMDUR) TAB PO SCH (09:26)
[2019-02-19] MEDS: TORSEMIDE 20 MG (DEMADEX) TAB PO SCH (09:26)
[2019-02-19] MEDS: SPIRONOLACTONE 25 MG (ALDACTONE) TAB PO SCH (09:26)
[2019-02-19] MEDS: GABAPENTIN 600 MG (NEURONTIN) TAB PO SCH ×3 (09:27→21:07)
[2019-02-19] MEDS: amLODIPine 10 MG (NORVASC) TAB PO SCH (09:27)
[2019-02-19] MEDS: RIVAROXABAN 15 MG TABLET (XARELTO) PO SCH (09:29)
--- NOTE | 2019-02-19 09:33 | Pulmonary Progress Note ---
Subjective Time Seen by a Provider: 09:21 Subjective/Events-last exam No complications noted. Sepsis Event Evaluation Height, Weight, BMI Height: 5'4.00" Weight: 219lbs. 1.0oz. [id number]; 35.13 BMI Method:Stated Exam Exam Vital Signs Date Time Temp Pulse Resp B/P (MAP) Pulse Ox O2 Delivery O2 Flow Rate FiO2 02/19/19 09:15 97 Nasal Cannula 2.00 02/19/19 09:09 97 Nasal Cannula 2.00 02/19/19 07:00 105 02/19/19 06:00 37.0 86 18 162/78 (106) 96 Nasal Cannula 2.00 02/19/19 00:37 74 02/18/19 21:45 Nasal Cannula 2.00 02/18/19 18:45 95 02/18/19 17:20 37.0 92 18 145/70 (95) 97 Nasal Cannula 2.00 02/18/19 14:02 97 Nasal Cannula 2.00 02/18/19 13:00 93 02/18/19 10:00 99 Nasal Cannula 2.00 02/18/19 09:55 80 155/77 (103) I & O 02/19/19 07:00 Intake Total 1640 ml Output Total 1 ml Balance 1639 ml Height & Weight Height: 5'4.00" Weight: 219lbs. 1.0oz. 99.758411iz; 35.13 BMI Method:Stated General Appearance: No Apparent Distress, WD/WN, Chronically ill, Obese HEENT: PERRL/EOMI, Normal ENT Inspection, Pharynx Normal Neck: Full Range of Motion, Normal Inspection, Non Tender, Supple, Carotid Bruit Respiratory: Chest Non Tender, Lungs Clear, No Accessory Muscle Use, No Respiratory Distress, Decreased Breath Sounds Cardiovascular: Regular Rate, Rhythm, No Edema, No Gallop, No JVD, No Murmur, Normal Peripheral Pulses Extremity: Normal Capillary Refill, Normal Inspection, Normal Range of Motion, Non Tender, No Calf Tenderness, No Pedal Edema Neurologic/Psychiatric: Alert, Oriented x3, No Motor/Sensory Deficits, Normal Mood/Affect Skin: Normal Color, Warm/Dry Lymphatic: No Adenopathy Results Lab Laboratory Tests 02/18/19 05:29 Assessment/Plan Assessment/Plan S/p recent syncope COPD with hx of multiple AE -oxygen -SVNS, adviar -Will plan out pt PFT -CXR reviewed Bradycardia, SSS -Cardiology following Acute renal failure -Monitor CAD with hx of stent placement COPD, history of multiple episodes of exacerbation Obesity with JORGE LUIS and probable OHS -pt is on CPAP therapy DM II ELIZABETH FRANCISCO DO Feb 19, 2019 09:33
[2019-02-19] MEDS: POLYETHYLENE GLYCOL 17 GM (MIRALAX) PACK PO SCH ×2 (09:34→21:08)
[2019-02-19] MEDS ORDERED: inSUlin ASPART (NovoLOG) 1 UNIT/0.01 ML (CHARGE PER UNIT) SC SCH ×2 (11:45→16:00)
--- NOTE | 2019-02-19 12:25 | PM&R Progress Note ---
Subjective HPI/CC On Admission Date Seen by Provider: Feb 19, 2019 Time Seen by Provider: 11:00 Subjective/Events-last exam Patient doing very well Very elevated sugars and patient has severe insulin resistance so will order the sliding scale she has used in the past to get control BM+ Iron level 53 so will order Venofer since she had EGD/Colon and capsule while at [facility] Did not use the CPAP last night because she feel asleep and Dr Luna counseled her on the importance of this today Checked meds and labs Reviewed therapy notes Conferred with covering machine operator of Systems General: Fatigue, Malaise Pulmonary: Dyspnea Objective Exam Vital Signs Vital Signs Date Time Temp Pulse Resp B/P (MAP) Pulse Ox O2 Delivery O2 Flow Rate FiO2 02/19/19 15:35 98 Nasal Cannula 2.00 02/19/19 12:02 95 02/19/19 06:00 37.0 18 162/78 (106) Capillary Refill : General Appearance: No Apparent Distress, WD/WN, Chronically ill, Obese HEENT: PERRL/EOMI, Normal ENT Inspection, Pharynx Normal Neck: Full Range of Motion, Normal Inspection, Non Tender, Supple, Carotid Bruit Respiratory: Chest Non Tender, Lungs Clear, No Accessory Muscle Use, No Respiratory Distress, Decreased Breath Sounds Cardiovascular: Regular Rate, Rhythm, No Edema, No Gallop, No JVD, No Murmur, Normal Peripheral Pulses Gastrointestinal: Normal Bowel Sounds, No Organomegaly, No Pulsatile Mass, Non Tender, Soft Back: Normal Inspection, No CVA Tenderness, No Vertebral Tenderness Extremity: Normal Capillary Refill, Normal Inspection, Normal Range of Motion, Non Tender, No Calf Tenderness, No Pedal Edema Neurologic/Psychiatric: Alert, Oriented x3, No Motor/Sensory Deficits, Normal Mood/Affect Skin: Normal Color, Warm/Dry Lymphatic: No Adenopathy Results/Procedures Lab Patient resulted labs reviewed. FIM Transfers Therapy Code Descriptions/Definitions Functional [place] Measure: 0=Not Assessed/NA 4=Minimal Assistance 1=Total Assistance 5=Supervision or Setup 2=Maximal Assistance 6=Modified [place] 3=Moderate Assistance 7=Complete IndependenceSCALE: Activities may be completed with or without assistive devices. 6-Mlboblcbec-khxfpqn completes the activity by him/herself with no assistance from a helper. 5-Set-up or Clean-up Assistance-helper sets up or cleans up; patient completes activity. [place] assists only prior to or following the activity. 4-Supervision or Touching Assistance-helper provides verbal cues and/or touching/steadying and/or contact guard assistance as patient completes activity. Assistance may be provided throughout the activity or intermittently. 3-Partial/Moderate Assistance-helper does LESS THAN HALF the effort. [place] lifts, holds or supports trunk or limbs, but provides less than half the effort. 2-Substantial/Maximal Assistance-helper does MORE THAN HALF the effort. [place] lifts or holds trunk or limbs and provides more than half the effort. 1-Wuibuiflb-cnmopp does ALL the effort. Patient does none of the effort to complete the activity. Or, the assistance of 2 or more helpers is required for the patient to complete the activity. If activity was not attempted, code reason: 7-Patient Refused. 9-Not Applicable-not attempted and the patient did not perform the activity before the current illness, exacerbation or injury. 10-Not Attempted due to Environmental Limitations-(lack of equipment, weather restraints, etc.). 88-Not Attempted due to Medical Conditions or Safety Concerns. Roll Left to Right (QC): 6 Sit to Lying (QC): 6 Sit to Stand (QC): 4 Chair/Ybk-dp-Ercsd Xfer(QC): 4 Car Transfer (QC): 4 Gait Training Does the Patient Walk?: Yes Distance: 72, 264 Walk 10 feet (QC): 4 Walk 50 ft with 2 Turns(QC): 4 Walk 150 ft (QC): 4 Walking 10ft/uneven surface-QC: 4 Gait Persons Needed: 1 Gait Assistive Device: FWW Wheelchair Training Does the Pt Use a Wheelchair?: No Wheel 50 ft with 2 turns (QC): 9 Wheel 150 ft (QC): 9 Type of Wheelchair: Manual Stair Training #of Steps: 12 1 Step (curb) (QC): 4 4 Steps (QC): 4 12 Steps (QC): 4 Balance Picking up an Object (QC): 4 ADL-Treatment Eating (QC): 6 (per report) Oral Hygiene (QC): 5 Shower/Bathe Self (QC): 4 (Pt performed bathing tasks using hand held shower. CGA for balance during lower body bathing.) Upper Body Dressing (QC): 5 (doff/don pullover shirt with set up) Lower Body Dressing (QC): 4 (Don pants with CGA for balance during standing for pant hike) On/Off Footwear (QC): 4 (SBA while seated EOB.) Toileting Hygiene (QC): 4 Toilet Transfer (QC): 4 Assessment/Plan Assessment and Plan Assess & Plan/Chief Complaint Assessment: Severe bradycardia symptomatic s/p Cardiology w/u at [facility] and [place] multiple meds AMS/Encephalopathy now resolved Severe anemia s/p EGD/Colon and capsule endoscopy negative results iron 53 so will start Venofer today 02/19/19 after placing IV HTN DM labile control HLP Chronic AF Severe COPD O2 dependent Volume overload hx Plan: Appreciate Guillermina Luna and Zach O2 Nebs Home meds on DC list from [facility] Venofer Increase insulin (1) Debility (2) Encephalopathy (3) Diabetes mellitus, type 2 Status: Chronic (4) CKD (chronic kidney disease) Status: Chronic (5) GERD (gastroesophageal reflux disease) Status: Chronic (6) A-fib (7) HTN (hypertension) Status: Chronic (8) HLD (hyperlipidemia) Status: Chronic (9) COPD (chronic obstructive pulmonary disease) (10) RESPIRATORY FAILURE, UNSP, UNSP W HYPOXIA OR HYPERCAPNIA (11) Multilevel degenerative disc disease (12) Lumbar spondylosis (13) Bradycardia Status: Acute ZACK ESCOBEDO DO Feb 19, 2019 12:25 POS
--- NOTE | 2019-02-19 15:32 | NUR ---
Initial assessment, meet and greet with patient. Patient was admitted to ARU 02/17/19 for encephalopathy. She was found unresponsive at home by family members, presented to [facility] ER, and was transferred to [facility] in where she remained 02/05/19-02/17/19. She has history of recent ARU stay, 01/13/19-01/28/19 and was discharged home at that time with supportive services. She has expressed fear of discharge and return home from this stay because of the unexpected event that occurred at home. Patient resides with her spouse Sarwat Rdz, she describes him as attentive and supportive regarding her needs and care. He did stay with her at [facility] for her entire length of stay. Sarwat is not employed on a schedule and is generally home with patient. Her son Saroj Luna resides in [facility] as well. DME: Last ARU discharge, new home O2 and nebulizer were obtained through [facility], patient's spouse picked up a [employer] from another agency in [facility]. Patient is participating in therapy at this time with a FWW; however, as noted during prior admit her spouse is a hoarder and there are only pathways in the home not wide enough for a FWW. Regarding patient's fear of being alone at any time at home, suggested a baby monitor for when spouse is in garage. Encouraged her to speak with spouse/son/granddaughters about having someone there at all times initially until confidence returns. HHC: Patient had been receiving services through [facility] for RN, PT, OT and therapy had signed off prior to her event requiring new hospitalization. Will follow for needs for resume. Discussed weekly team conference, patient is aware from recent ARU stay. Physician noted anticipated length of stay as one week, will follow progress re same. Physician Followup Appointments: PCP is [facility] Dr. Obdulio Cabral [facility] made recommendations but did not set appointments: PCP, 6 days from [facility] discharge 02/17/19 [place] Khan MD/Gastroenterology 2-4 weeks from [facility] discharge [phone] Continue intermittent review of progress relative to discharge planning.
--- NOTE | 2019-02-19 15:48 | Progress Note - Cardiology ---
Cardiology SOAP Progress Note Subjective: No cp or palp or syncope Has gen weakness and malaise Objective: I&O/Vital Signs 02/19/19 02/19/19 02/19/19 02/19/19 06:00 07:00 09:00 09:09 Temp 37.0 Pulse 86 105 Resp 18 B/P (MAP) 162/78 (106) Pulse Ox 96 97 O2 Delivery Nasal Cannula Nasal Cannula Nasal Cannula O2 Flow Rate 2.00 2.00 2.00 02/19/19 02/19/19 02/19/19 09:15 12:02 15:35 Pulse 95 Pulse Ox 97 98 O2 Delivery Nasal Cannula Nasal Cannula O2 Flow Rate 2.00 2.00 02/19/19 00:00 Intake Total 1140 ml Output Total 1 ml Balance 1139 ml Weight (Pounds): 219 Weight (Ounces): 1.0 Weight (Calculated Kilograms): 99.894451 Constitutional: AAO x 3, well-developed, well-nourished Respiratory: other Cardiovascular: regular rate-rhythm, S1 and S2, systolic murmur Gastrointestional: soft, audible bowel sounds Extremities: No clubbing, No cyanosis, No significant edema Neurologic/Psychiatric: oriented x 3, other Skin: No rash on exposed areas, No ulcerations on exposed areas Results/Procedures: Labs Laboratory Tests 02/18/19 20:27: Glucometer 334H 02/19/19 02:54: Glucometer 214H 02/19/19 05:46: Glucometer 232H 02/19/19 10:30: Glucometer 345H 02/19/19 10:31: Glucometer 356H Laboratory Tests 02/18/19 05:29 A/P: Assessment: Recent syncope, apparently due to marked bradycardia at a time that she was on Multaq, Cardizem, and beta-eliseo. Now off Multaq and Cardizem and beta-eliseo SSS: PAF, h/o bradycardia. S/p ILR by Dr West in 2018 Echo on 02/18/19: LVEF 60-65%, mild to mod conc LVH, mild enlargement of LA, mild MAC, mild to mod TR, RVSP 44 mmHg Stroke prophylaxis with rivaroxaban Severe carotid arterial disease: 80-99% R ICA, 50-79% L ICA (as reported by [facility] on 02/10/19) COPD, history of multiple episodes of exacerbation Acute renal failure in early Jan 2019, managed by Dr Lopez H/o severe anemia of undetermined etiology, managed by Dr Lopez Coronary artery disease, history of stent placement 2 to the LAD: Taxus 320 mm stent in the mid LAD, proximal to that is 312 mm Ion stent. Cardiac catheteriza tion done March 05, 2017 revealed severe LAD stenosis beyond the previously known stent, treated with 3.08 mm ALPINE expanded to 3.5, balloon for in-stent restenosis also was done. Most recent cardiac catheterization done March 09, 2018 revealed patent stent with small vessel disease, no intervention required Hypertension. Renal arterial duplex done July 2015: proximal right renal artery not evaluated, other segments of the left renal artery demonstrated no evidence of significant stenosis Hyperlipidemia Obesity with obesity-hypoventilation and obstructive sleep apnea treated with CPAP Diabetes mellitus II Chronic back pain, history of lumbar surgery in the past Plan: * Complex management due to multiple comorbidities * Heart rate currently appears well controlled * BP appears improved after adding doxazosin * Monitor labs * Keep on tele for now CHRIS MAGAÑA MD FACP FAC CCDS Feb 19, 2019 15:48 POS
[2019-02-19] MEDS ORDERED: NON-FORMULARY MEDICATION 1 EA EA (Dulaglutide (Trulicity) 0.75 MG) SC SCH (16:15)
[2019-02-19] MEDS ORDERED: IRON SUCROSE 200 MG/10 ML (VENOFER) VIAL IV ONE (16:45)
[2019-02-19 18:08] VITALS: BP 165/73
[2019-02-19] MEDS: PRIMIDONE 50 MG TAB (MYSOLINE) PO SCH (21:07)
[2019-02-19] MEDS: MAGNESIUM OXIDE (MAG-OX)400 MG TAB PO SCH (21:07)
[2019-02-19] MEDS: doxAzosin 1 MG (CARDURA) TAB PO SCH (21:07)
[2019-02-19] MEDS: FENOFIBRATE 134 MG (LOFIBRA) CAPSULE PO SCH (21:07)
[2019-02-20] MEDS: RT-ADVAIR HFA 115/21 MCG PER PUFF IH SCH ×3 (01:49→20:11)
[2019-02-20] MEDS: RT-ALBUTEROL/IPRATROPIUM 3 ML (DUONEB) VIAL INH SCH ×4 (01:49→20:10)
[2019-02-20 04:59] VITALS: BP 169/78
[2019-02-20 06:19] LABS: BASOPHILS % (AUTO) 0 % (0-10); EOSINOPHILS # (AUTO) 0.1 10^3/uL (0.0-0.3); EOSINOPHILS % (AUTO) 2 % (0-10); HEMATOCRIT 29 % (35-52); HEMOGLOBIN 8.7 G/DL (11.5-16.0); LYMPHOCYTES % (AUTO) 19 % (12-44); MEAN CORPUSCULAR HEMOGLOBIN 26 PG (25-34); MEAN CORPUSCULAR HGB CONC 30 G/DL (32-36); MEAN CORPUSCULAR VOLUME 87 FL (80-99); MEAN PLATELET VOLUME 11.4 FL (7.4-10.4); MONOCYTES # (AUTO) 0.3 X 10^3 (0.0-1.0); MONOCYTES % (AUTO) 7 % (0-12); NEUTROPHILS # (AUTO) 3.6 X 10^3 (1.8-7.8); NEUTROPHILS % (AUTO) 72 % (42-75); PLATELET COUNT 126 10^3/uL (130-400); RED CELL DISTRIBUTION WIDTH 16.2 % (10.0-14.5)
[2019-02-20 06:42] LABS: ALBUMIN 3.6 GM/DL (3.2-4.5); BILIRUBIN,TOTAL 0.4 MG/DL (0.1-1.0); CALCIUM 9.2 MG/DL (8.5-10.1); CREATININE SERUM 1.28 MG/DL (0.60-1.30); POTASSIUM 4.5 MMOL/L (3.6-5.0)
[2019-02-20] MEDS: MULTIVIT W/MINERALS TAB (THERAGRAN M) PO SCH (06:50)
[2019-02-20] MEDS: inSUlin ASPART (NovoLOG) 1 UNIT/0.01 ML (CHARGE PER UNIT) SC SCH ×4 (06:50→21:48)
[2019-02-20] MEDS: GABAPENTIN 600 MG (NEURONTIN) TAB PO SCH ×3 (08:55→21:47)
[2019-02-20] MEDS: amLODIPine 10 MG (NORVASC) TAB PO SCH (08:55)
[2019-02-20] MEDS: RIVAROXABAN 15 MG TABLET (XARELTO) PO SCH (08:55)
[2019-02-20] MEDS: ISOSORBIDE MONONITRATE 60 MG (IMDUR) TAB PO SCH (08:55)
[2019-02-20] MEDS: TORSEMIDE 20 MG (DEMADEX) TAB PO SCH (08:55)
[2019-02-20] MEDS: ASPIRIN E.C. 81 MG (ECOTRIN) TAB PO SCH (08:56)
[2019-02-20] MEDS: OMEGA 3 (FISH OIL) 1000 MG CAP PO SCH (08:56)
[2019-02-20] MEDS: SPIRONOLACTONE 25 MG (ALDACTONE) TAB PO SCH (08:56)
[2019-02-20] MEDS: PANTOPRAZOLE 40 MG (PROTONIX) TAB PO SCH (08:56)
--- NOTE | 2019-02-20 08:58 | Physical Therapy Daily Note ---
PT Daily Note-Current Subjective pt sitting EOB agrees to therapy and denies pain at this time. Appearance pt in recliner with call light, room phone, tray table in reach and all needs met at this time. Mental Status Patient Orientation: Person, Place, Time, Situation Attachments: Oxygen (2L N/C), IV telemetry Transfers SCALE: Activities may be completed with or without assistive devices. 5-Ybuocojwbz-yshtwkq completes the activity by him/herself with no assistance from a helper. 5-Set-up or Clean-up Assistance-helper sets up or cleans up; patient completes activity. [place] assists only prior to or following the activity. 4-Supervision or Touching Assistance-helper provides verbal cues and/or touching/steadying and/or contact guard assistance as patient completes activity. Assistance may be provided throughout the activity or intermittently. 3-Partial/Moderate Assistance-helper does LESS THAN HALF the effort. [place] lifts, holds or supports trunk or limbs, but provides less than half the effort. 2-Substantial/Maximal Assistance-helper does MORE THAN HALF the effort. [place] lifts or holds trunk or limbs and provides more than half the effort. 6-Fashsuicw-kptxwu does ALL the effort. Patient does none of the effort to complete the activity. Or, the assistance of 2 or more helpers is required for the patient to complete the activity. If activity was not attempted, code reason: 7-Patient Refused. 9-Not Applicable-not attempted and the patient did not perform the activity before the current illness, exacerbation or injury. 10-Not Attempted due to Environmental Limitations-(lack of equipment, weather restraints, etc.). 88-Not Attempted due to Medical Conditions or Safety Concerns. Sit to Stand (QC): 4 (CGA) Chair/Qkk-sm-Svxna Xfer(QC): 4 (CGA) Weight Bearing Right Lower Extremity: Right Full Weight Bearing Left Lower Extremity: Left Full Weight Bearing Gait Training Distance: 150', 100' Walk 10 feet (QC): 4 (CGA) Walk 50 ft with 2 Turns(QC): 4 (CGA) Walk 150 ft (QC): 4 (CGA) Gait Assistive Device: Cane Single Point (huricane) pt ambulated first bout with FWW with short choppy steps but is steady and stable on her feet. PT switched pt to single point cane from previous stay at rehab and pt required min education for cane but was able to walk with improved gait pattern with cane in L hand. Exercises Seated Therapy Exercises: Ankle pumps, Long arc quads, Hip flexion, Hip abd/add Seated Reps: 20 (10reps 2 sets) Standing: Hip Abduction, Heel/toe raises, Mini squats, Side steps (db // bars twice x2), Step-ups Standing Reps: 20 (10reps 2 sets) NuStep Minutes: 10 NuStep Workload: 4 Treatments pt performed transfer training, skilled ambulation training, functional LE strengthening/endurance training, and education. Assessment Current Status: Good Progress pt's oxygen stayed aboved 96% for duration of session. Pt's HR increased with e xercise up to 100-110bpm and stayed steady with exercise. pt had one bout during standing exercises where HR dropped to 82bpm but pt reported she felt alright. Pt was able to be steady and stable on her feet with the cane and takes larger steps with the cane than she did instead of the FWW. Pt victoriano exercise with min fatigue this session. PT Short Term Goals Short Term Goals Time Frame: Feb 24, 2019 Sit to stand: 6 Toilet transfer: 6 PT Halfway Goals Internet Researcher Goals PT Halfway Goals Time Frame: Mar 03, 2019 Roll Left & Right (QC): 6 Sit to Lying (QC): 6 Lying-Sitting on Side/Bed(QC): 6 Sit to Stand (QC): 6 Chair/Ubl-gy-Bdgkn Xfer(QC): 6 Toilet Transfer (QC): 6 Car Transfer (QC): 6 Does the Patient Walk: Yes Walk 10 feet (QC): 6 Walk 50ft with 2 Turns (QC): 6 Walk 150 ft (QC): 6 Walking 10ft on Uneven Surface: 6 1 Step (curb) (QC): 6 4 Steps (QC): 6 12 Steps (QC): 6 Picking up an Object (QC): 6 Does the Pt use WC or Scooter?: No Type: N/A Type: N/A PT Plan Problem List Problem List: Activity Tolerance, Functional Strength, Safety, Balance, Gait, Transfer, Bed Mobility, ROM Treatment/Plan Treatment Plan: Continue Plan of Care Treatment Plan: Education, Functional Activity Diaen, Functional Strength, Group Therapy, Gait, Safety, Therapeutic Exercise, Transfers Treatment Duration: Mar 03, 2019 Frequency: Modified Program (IRF) (03/10) Estimated Hrs Per Day: 1.5 hours per day Patient and/or Family Agrees t: Yes Safety Risks/Education Patient Education: Gait Training, Transfer Techniques, Correct Positioning, Safety Issues Teaching Recipient: Patient Teaching Methods: Demonstration, Discussion Response to Teaching: Return Demonstration, Reinforcement Needed Time/GCodes Time In: 0800 Time Out: 0900 Total Billed Treatment Time: 60 Total Billed Treatment 1 visit GT 15' EX 30' FA 15' FLORINDA SMART PT Feb 20, 2019 08:58 POS
--- NOTE | 2019-02-20 09:47 | PM&R Progress Note ---
Subjective HPI/CC On Admission Date Seen by Provider: Feb 20, 2019 Time Seen by Provider: 08:30 Subjective/Events-last exam Hgb 8.7 Iron level 53 so will initiate IV iron first dose yesterday Creatinine 1.28 Platelet counts 126,000 Used CPAP last night Sugars are much improved today after an immense amount of insulin Needs to have a BM so I will start aggressive regimen for that Checked meds and labs Reviewed therapy notes Conferred with cloud developer of Systems General: Fatigue Pulmonary: Dyspnea Objective Exam Vital Signs Vital Signs Date Time Temp Pulse Resp B/P (MAP) Pulse Ox O2 Delivery O2 Flow Rate FiO2 02/21/19 01:00 86 02/20/19 21:50 Nasal Cannula 2.00 02/20/19 21:40 18 162/75 (104) 98 02/20/19 15:35 37.0 Capillary Refill : General Appearance: No Apparent Distress, WD/WN, Chronically ill, Obese HEENT: PERRL/EOMI, Normal ENT Inspection, Pharynx Normal Neck: Full Range of Motion, Normal Inspection, Non Tender, Supple, Carotid Bruit Respiratory: Chest Non Tender, Lungs Clear, No Accessory Muscle Use, No Respiratory Distress, Decreased Breath Sounds Cardiovascular: Regular Rate, Rhythm, No Edema, No Gallop, No JVD, No Murmur, Normal Peripheral Pulses Gastrointestinal: Normal Bowel Sounds, No Organomegaly, No Pulsatile Mass, Non Tender, Soft Back: Normal Inspection, No CVA Tenderness, No Vertebral Tenderness Extremity: Normal Capillary Refill, Normal Inspection, Normal Range of Motion, Non Tender, No Calf Tenderness, No Pedal Edema Neurologic/Psychiatric: Alert, Oriented x3, No Motor/Sensory Deficits, Normal Mood/Affect Skin: Normal Color, Warm/Dry Lymphatic: No Adenopathy Results/Procedures Lab Laboratory Tests 02/20/19 05:43 Patient resulted labs reviewed. FIM Transfers Therapy Code Descriptions/Definitions Functional [place] Measure: 0=Not Assessed/NA 4=Minimal Assistance 1=Total Assistance 5=Supervision or Setup 2=Maximal Assistance 6=Modified [place] 3=Moderate Assistance 7=Complete IndependenceSCALE: Activities may be completed with or without assistive devices. 7-Xwzqkymdso-zhyyqjd completes the activity by him/herself with no assistance from a helper. 5-Set-up or Clean-up Assistance-helper sets up or cleans up; patient completes activity. [place] assists only prior to or following the activity. 4-Supervision or Touching Assistance-helper provides verbal cues and/or touching/steadying and/or contact guard assistance as patient completes activity. Assistance may be provided throughout the activity or intermittently. 3-Partial/Moderate Assistance-helper does LESS THAN HALF the effort. [place] lifts, holds or supports trunk or limbs, but provides less than half the effort. 2-Substantial/Maximal Assistance-helper does MORE THAN HALF the effort. [place] lifts or holds trunk or limbs and provides more than half the effort. 8-Ncshjymxi-xsylmh does ALL the effort. Patient does none of the effort to complete the activity. Or, the assistance of 2 or more helpers is required for the patient to complete the activity. If activity was not attempted, code reason: 7-Patient Refused. 9-Not Applicable-not attempted and the patient did not perform the activity before the current illness, exacerbation or injury. 10-Not Attempted due to Environmental Limitations-(lack of equipment, weather restraints, etc.). 88-Not Attempted due to Medical Conditions or Safety Concerns. Roll Left to Right (QC): 6 Sit to Lying (QC): 6 Sit to Stand (QC): 4 (CGA) Chair/Kya-mq-Hlgre Xfer(QC): 4 (CGA) Car Transfer (QC): 4 Gait Training Does the Patient Walk?: Yes Distance: 150', 100' Walk 10 feet (QC): 4 (CGA) Walk 50 ft with 2 Turns(QC): 4 (CGA) Walk 150 ft (QC): 4 (CGA) Walking 10ft/uneven surface-QC: 4 Gait Persons Needed: 1 Gait Assistive Device: Cane Single Point (huricane) Wheelchair Training Does the Pt Use a Wheelchair?: No Wheel 50 ft with 2 turns (QC): 9 Wheel 150 ft (QC): 9 Type of Wheelchair: Manual Stair Training #of Steps: 12 1 Step (curb) (QC): 4 4 Steps (QC): 4 12 Steps (QC): 4 Balance Picking up an Object (QC): 4 ADL-Treatment Eating (QC): 6 (per report) Oral Hygiene (QC): 5 Shower/Bathe Self (QC): 4 (Pt performed bathing tasks using hand held shower. CGA for balance during lower body bathing.) Upper Body Dressing (QC): 5 (doff/don pullover shirt with set up) Lower Body Dressing (QC): 4 (Don pants with CGA for balance during standing for pant hike) On/Off Footwear (QC): 4 (SBA while seated EOB.) Toileting Hygiene (QC): 4 Toilet Transfer (QC): 4 Assessment/Plan Assessment and Plan Assess & Plan/Chief Complaint Assessment: Severe bradycardia symptomatic s/p Cardiology w/u at [facility] and [place] multiple meds AMS/Encephalopathy now resolved Severe anemia s/p EGD/Colon and capsule endoscopy negative results iron 53 so will start Venofer 02/19/19 after placing midline HTN DM labile control HLP Chronic AF Severe COPD O2 dependent Volume overload hx Plan: Appreciate Guillermina Luna and Zach O2 Nebs Home meds on DC list from [facility] Increase insulin Midline Poor venous access (1) Debility (2) Encephalopathy (3) Diabetes mellitus, type 2 Status: Chronic (4) CKD (chronic kidney disease) Status: Chronic (5) GERD (gastroesophageal reflux disease) Status: Chronic (6) A-fib (7) HTN (hypertension) Status: Chronic (8) HLD (hyperlipidemia) Status: Chronic (9) COPD (chronic obstructive pulmonary disease) (10) RESPIRATORY FAILURE, UNSP, UNSP W HYPOXIA OR HYPERCAPNIA (11) Multilevel degenerative disc disease (12) Lumbar spondylosis (13) Bradycardia Status: Acute ZACK ESCOBEDO DO Feb 20, 2019 09:47 POS
[2019-02-20] MEDS: POLYETHYLENE GLYCOL 17 GM (MIRALAX) PACK PO SCH ×2 (09:56→21:47)
[2019-02-20] MEDS: SENNA W/DOCUSATE (SENOKOT S) TABLET PO SCH ×2 (09:57→21:47)
--- NOTE | 2019-02-20 10:26 | Cardiology Progress Note ---
Subjective Date Seen by Provider: Feb 20, 2019 Time Seen by Provider: 10:27 Subjective/Events-last exam Patient sitting up in chair, no new complaints. Denies any chest pain or dyspnea. Review of Systems General: No Chills, No Night Sweats; Fatigue; No Malaise, No Appetite, No Other HEENT: No Head Aches, No Visual Changes, No Eye Pain, No Ear Pain, No Dysphasia, No Sinus Congestion, No Post Nasal Drip, No Sore Throat, No Other Pulmonary: Dyspnea; No Cough, No Pleuritic Chest Pain, No Other Cardiovascular: Edema; No: Chest Pain, Palpitations, Orthopnea, Paroxysmal Noc. Dyspnea, Lt Headedness, Other Objective-Cardiology Exam Last Set of Vital Signs Vital Signs 02/20/19 02/20/19 11:02 11:46 Temp 37.1 Pulse 85 Resp 20 B/P (MAP) 137/71 (93) Pulse Ox 94 O2 Delivery Nasal Cannula O2 Flow Rate 2.00 Capillary Refill : I&O Intake and Output 02/20/19 00:00 Intake Total 3200 ml Balance 3200 ml Intake Oral 3200 ml # Voids 4 General: Alert, Oriented X3, Cooperative HEENT: Atraumatic, PERRLA Neck: Supple, No JVD, No Thyromegaly Lungs: Clear to Auscultation, Normal Air Movement Heart: Regular Rate, Normal S1, Normal S2, No Murmurs Abdomen: Normal Bowel Sounds, Soft, No Tenderness, No Hepatosplenomegaly, No Masses Extremities: No Clubbing, No Cyanosis, No Edema, Normal Pulses, No Tenderness/Swelling Skin: No Rashes, No Breakdown, No Significant Lesion Neuro: Normal Gait, Normal Speech, Strength at 5/5 X4 Ext, Normal Tone, Sensation Intact Psych/Mental Status: Mental Status NL, Mood NL Results Lab Laboratory Tests 02/20/19 05:43 A/P-Cardiology Admission Diagnosis Syncope SSS/PAF CAD HTN Assessment/Plan Recent syncope, apparently due to marked bradycardia at a time that she was on Multaq, Cardizem, and beta-eliseo. Loop interrogation done at [facility] revealed 2 3 second pauses on 02/05/19. Now off Multaq and Cardizem and beta- eliseo, no further syncope or bradycardia noted. SSS/PAF, h/o sinues node dysfuntion with severe bradycardia in the past. S/p Linq implantation in 2018. Currently in sinus rhythm, maintained on Xarelto. Echo on 02/18/19: LVEF 60-65%, mild to mod conc LVH, mild enlargement of LA, mild MAC, mild to mod TR, RVSP 44 mmHg [id number] score of 4, yearly risk of stroke without oral anticoagulation is 4 percent. Maintained on Xarelto 15mg. Severe carotid arterial disease: 80-99% R ICA, 50-79% L ICA (as reported by [facility] on 02/10/19). Will need appt with CV surgeon. COPD, history of multiple episodes of exacerbation, continue to monitor. Acute renal failure, continues to improve. H/o severe anemia of undetermined etiology, underwent EGD/colonoscopy in [facility] in 2018, reports no source of bleeding. I will try to ob tain records for further review. Coronary artery disease, history of stent placement 2 to the LAD: Taxus 320 mm stent in the mid LAD, proximal to that is 312 mm Ion stent. Cardiac catheterization done March 05, 2017 revealed severe LAD stenosis beyond the previously known stent, treated with 3.08 mm ALPINE expanded to 3.5, balloon for in-stent restenosis also was done. Most recent cardiac catheterization done March 09, 2018 revealed patent stent with small vessel disease, no intervention required, consider repeating stress test as outpatient. Hypertension. Renal arterial duplex done July 2015: proximal right renal artery not evaluated, other segments of the left renal artery demonstrated no evidence of significant stenosis Hyperlipidemia, continue to monitor. Obesity with obesity-hypoventilation and obstructive sleep apnea treated with CPAP Diabetes mellitus II Chronic back pain, history of lumbar surgery in the past Generalized debility/weakness, continue PT/OT Patient was seen and evaluated with Kaela, examination performed, management plan was discussed, agree with the current scribed note, I made few changes to the note using Italic font Patient was seen, sitting comfortably, complaining of fatigue, anxious about her syncopal episode. Lungs had bilateral rhonchi, heart is regular and borderline tachycardic Loop recorder records were reviewed, patient had bradycardia, had one pause for 3 second, does not explain the prolonged episode of unresponsiveness, I explained to her length the bradycardia will make her tired, has no energy but it is unlikely to make her unresponsive. Could be secondary to hypotension or hypoxemia Continue to monitor at this time, will add low-dose beta blockers and evaluate tolerance and response Clinical Quality Measures DVT/VTE Risk/Contraindication: Risk Factor Score Per Nursin RFS Level Per Nursing on Admit: 4+=Very High Supervisory-Addendum Brief Supervisory Addendum Participated in pt care: history, MDM, physical Personally performed: exam, history, MDM Care discussed with: KAELA HEAD Feb 20, 2019 10:26 BOOM REED MD Feb 20, 2019 12:35 POS
[2019-02-20 11:02] VITALS: BP 137/71
--- NOTE | 2019-02-20 12:35 | Occupational Ther Daily Note ---
OT Current Status-Daily Note Subjective No c/o of pain. Appearance Pt seated in recliner drinking tea when OT entered the room. Pt agrees to therapy treatment. Mental Status/Objective Patient Orientation: Person, Place, Time, Situation Attachments: IV, Oxygen, Telemetry ADL-Treatment Therapy Code Descriptions/Definitions Functional [place] Measure: 0=Not Assessed/NA 4=Minimal Assistance 1=Total Assistance 5=Supervision or Setup 2=Maximal Assistance 6=Modified [place] 3=Moderate Assistance 7=Complete IndependenceSCALE: Activities may be completed with or without assistive devices. 2-Wxipqinuhm-wievrdb completes the activity by him/herself with no assistance from a helper. 5-Set-up or Clean-up Assistance-helper sets up or cleans up; patient completes activity. [place] assists only prior to or following the activity. 4-Supervision or Touching Assistance-helper provides verbal cues and/or touching/steadying and/or contact guard assistance as patient completes activity. Assistance may be provided throughout the activity or intermittently. 3-Partial/Moderate Assistance-helper does LESS THAN HALF the effort. [place] lifts, holds or supports trunk or limbs, but provides less than half the effort. 2-Substantial/Maximal Assistance-helper does MORE THAN HALF the effort. [place] lifts or holds trunk or limbs and provides more than half the effort. 7-Addrsamfn-sussoz does ALL the effort. Patient does none of the effort to complete the activity. Or, the assistance of 2 or more helpers is required for the patient to complete the activity. If activity was not attempted, code reason: 7-Patient Refused. 9-Not Applicable-not attempted and the patient did not perform the activity before the current illness, exacerbation or injury. 10-Not Attempted due to Environmental Limitations-(lack of equipment, weather restraints, etc.). 88-Not Attempted due to Medical Conditions or Safety Concerns. Oral Hygiene (QC): 5 (Pt completed oral hygine with set up standing with cane at the sink.) Bathing Location: L Arm, R Arm, L Upper Leg, R Upper Leg, L Lower Leg (including foot), R Lower Leg (including foot), Chest, Abdomen, Buttocks, P erineal Area Shower/Bathe Self (QC): 5 (using hand held shower, bench and grabbars, pt required set up to complete the task.) Upper Body Dressing (QC): 5 (Set up to complete.) Lower Body Dressing (QC): 4 (SBA while completing the LB dressing.) Toileting Hygiene (QC): 7 (Pt declined using the toilet.) Toilet Transfer (QC): 7 Footwear (5) Pt utilized sock aid to don compression sock. Pt required set up when completing the task. Other Treatment Pt ambulated with cane and SBA to the bathroom . Pt completed shower seated at the bench. Pt had 2 litres oxygen while completing shower tasks. Pt transferred to the chair to complete dressing. Pt then brushed hair while seated at the sink.. Pt required extended time to complete the shower. Pt ambulated to the gym and completed bilateral armbike [id number] min with min resistance to increase overall strength and activity tolerance for functional tasks. Pt encouraged to take break while completing the exercise. Pt took one brief break. OT checked oxygen sats. They were 98%. Pt ambulated back to room with cane and SBA for safety. Pt seated in recliner with call light/phone in reach at the end of session. All needs met in room., Education OT Patient Education: Exercise program, Modified ADL techniques, Progress toward Goal/Update tx plan, Purpose of tx/functional activities, Reviewed precautions, Rehab process, Safety issues, Use of adapted equipment Teaching Recipient: Patient Teaching Methods: Demonstration, Discussion Response to Teaching: Verbalize Understanding, Return Demonstration OT Retirement Goals Clinical Researcher Goals Time Frame: Mar 03, 2019 Eating (QC): 6 Oral Hygiene (QC): 6 Toileting Hygiene (QC): 6 Shower/Bathe Self (QC): 6 Upper Body Dressing (QC): 6 Lower Body Dressing (QC): 6 On/Off Footwear (QC): 6 Additional Goals: 1-Demonstrate ADL Tasks, 2-Verbalize Understanding, 3- ImproveStrength/Diane 1=Demonstrate adherence to instructed precautions during ADL tasks. 2=Patient will verbalize/demonstrate understanding of assistive devices/modifications for ADL. 3=Patient will improve strength/tolerance for activity to enable patient to perform ADL's. OT Education/Plan Problem List/Assessment Assessment: Decreased Activ Tolerance, Decreased UE Strength, Impaired I ADL's, Impaired Self-Care Skills Discharge Recommendations Plan/Recommendations: Continue POC Therapy Discharge Recommendati: Post Acute OT Equpiment Recommendations-D/C: Sock Aide Treatment Plan/Plan of Care Treatment,Training & Education: Yes Patient would benefit from OT for education, treatment and training to promote independence in ADL's, mobility, safety and/or upper extremity function for ADL's. Plan of Care: ADL Retraining, Functional Mobility, Group Exercise/Act as Ind, UE Funct Exercise/Act Treatment Duration: Mar 03, 2019 Frequency: At least 5 of 7 days/Wk (IRF) Estimated Hrs Per Day: 1.5 hours per day Agreement: Yes Rehab Potential: Good Time/GCodes Start Time: 09:00 Stop Time: 10:30 Total Time Billed (hr/min): 90 Billed Treatment Time 1,ADL x4 (65 Min) EX x2 (25 Min) DOV BADILLO OT Feb 20, 2019 12:35 POS
--- NOTE | 2019-02-20 13:25 | Physical Therapy Daily Note ---
PT Daily Note-Current Subjective pt in recliner pre-tx agrees to therapy and denies any pain. Appearance pt in recliner post-tx with call light, tray, and phone in reach with all needs met at this time. Mental Status Patient Orientation: Person, Place, Time, Situation Attachments: Oxygen (2L N/C), IV Transfers SCALE: Activities may be completed with or without assistive devices. 3-Dcblphtkzk-qvpgvrm completes the activity by him/herself with no assistance from a helper. 5-Set-up or Clean-up Assistance-helper sets up or cleans up; patient completes activity. [place] assists only prior to or following the activity. 4-Supervision or Touching Assistance-helper provides verbal cues and/or touching/steadying and/or contact guard assistance as patient completes activity. Assistance may be provided throughout the activity or intermittently. 3-Partial/Moderate Assistance-helper does LESS THAN HALF the effort. [place] lifts, holds or supports trunk or limbs, but provides less than half the effort. 2-Substantial/Maximal Assistance-helper does MORE THAN HALF the effort. [place] lifts or holds trunk or limbs and provides more than half the effort. 2-Znnakjlsw-njbeur does ALL the effort. Patient does none of the effort to complete the activity. Or, the assistance of 2 or more helpers is required for the patient to complete the activity. If activity was not attempted, code reason: 7-Patient Refused. 9-Not Applicable-not attempted and the patient did not perform the activity before the current illness, exacerbation or injury. 10-Not Attempted due to Environmental Limitations-(lack of equipment, weather restraints, etc.). 88-Not Attempted due to Medical Conditions or Safety Concerns. pt is SBA for sit <-> stand from recliner and gym chair. Weight Bearing Right Lower Extremity: Right Full Weight Bearing Left Lower Extremity: Left Full Weight Bearing Gait Training Distance: 120',70' Gait Assistive Device: Cane Single Point (huricane) Pt is CGA for ambulation. pt gait pattern is improving to a more normal gait. Exercises Standing: Retro gait (db // bars x4), Side steps (db // bars 4 times with carp et to walk over), Stepping over objects pt performed 4x 1min standing on aerex foam in // bars without hands to challenge balance. Treatments pt performed balance training, transfer training, skilled ambulation training, and education. Assessment Current Status: Good Progress pt ambulation patterns improving, pt self limits ambulation distance secondary to general fatigue. pt reports she is very tired this afternoon after structured therapy. PT Short Term Goals Short Term Goals Time Frame: Feb 24, 2019 Sit to stand: 6 Toilet transfer: 6 PT Occupational Therapy Aides Teacher Goals Detention Goals PT Occupational Therapy Aides Teacher Goals Time Frame: Mar 03, 2019 Roll Left & Right (QC): 6 Sit to Lying (QC): 6 Lying-Sitting on Side/Bed(QC): 6 Sit to Stand (QC): 6 Chair/Pmq-ci-Cqocn Xfer(QC): 6 Toilet Transfer (QC): 6 Car Transfer (QC): 6 Does the Patient Walk: Yes Walk 10 feet (QC): 6 Walk 50ft with 2 Turns (QC): 6 Walk 150 ft (QC): 6 Walking 10ft on Uneven Surface: 6 1 Step (curb) (QC): 6 4 Steps (QC): 6 12 Steps (QC): 6 Picking up an Object (QC): 6 Does the Pt use WC or Scooter?: No Type: N/A Type: N/A PT Plan Problem List Problem List: Activity Tolerance, Functional Strength, Safety, Balance, Gait, Transfer, ROM Treatment/Plan Treatment Plan: Continue Plan of Care Treatment Plan: Education, Functional Activity Diane, Functional Strength, Group Therapy, Gait, Safety, Therapeutic Exercise, Transfers Treatment Duration: Mar 03, 2019 Frequency: Modified Program (IRF) (/) Estimated Hrs Per Day: 1.5 hours per day Patient and/or Family Agrees t: Yes Safety Risks/Education Patient Education: Gait Training, Transfer Techniques, Correct Positioning, Safety Issues Teaching Recipient: Patient Teaching Methods: Demonstration, Discussion Response to Teaching: Return Demonstration, Reinforcement Needed Time/GCodes Time In: 1230 Time Out: 1300 Total Billed Treatment Time: 30 Total Billed Treatment 1 visit FA 30' BONG ARNOLD PT Feb 20, 2019 13:24 POS
[2019-02-20] MEDS ORDERED: METO100T12 PO (14:50)
[2019-02-20] MEDS ORDERED: RIVA20TA PO (14:50)
[2019-02-20] MEDS ORDERED: HYDR-3922 PO (14:53)
[2019-02-20] MEDS ORDERED: DILT240C91 PO (14:53)
[2019-02-20] MEDS ORDERED: DRON400T2 PO (14:53)
[2019-02-20] MEDS ORDERED: HYDR-3820 PO (14:53)
[2019-02-20] MEDS ORDERED: CLON0.1T PO (14:55)
[2019-02-20] MEDS ORDERED: LISI-552 PO (14:57)
[2019-02-20] MEDS ORDERED: METF500T19 PO (14:57)
--- NOTE | 2019-02-20 15:19 | Anesthesia-Procedure Note ---
Procedures/Interventions Procedure Start/Stop/Diagnosis Date of Procedure: Feb 20, 2019 Start Time: 15:00 Referring Physician: Jessica Preprocedural Diagnosis: Encephalopathy Brief History Called to Rehab to start IV on difficult stick. Pt had been stuck multiple times by nursing staff without success. #20 g started R wrist x1 attempts without complication. Op site applied, good blood return. No complaints, report to RN Stop Time: 15:10 Postprocedural Diagnosis: Encephalopathy Central Line/IV Access IV : Location: Right Site: Wrist IV Catheter Type: Peripheral IV IV Catheter Gauge: 20 KRYSTEN QUIROS CRNA Feb 20, 2019 15:19 POS
[2019-02-20 15:35] VITALS: BP 162/69
--- NOTE | 2019-02-20 15:46 | NUR ---
"RD ASSESSMENT PMHx: afib; CAD; hypercholesterolemia; HTN; GERD; DM; pancreatitis; PT INTERACTION: Pt was awake and pleasant during nutrition assessment. Pt states current appetite is good and has been for some time. Note pt avg PO intake of 100% x2d, per chart review. Pt states following a regular diet at home, and currently has no issues with chewing/swallowing food. Pt states no recent issues with n/v at this time. Pt states some recent issues with constipation for 2 days. Note last BM was 02/20 and pt currently on bowel regimen of miralax BID, senna BID, and colace PRN, per chart review. Pt states no recent wt changes. Note 6# wt loss x2w, per chart review. ABNORMAL NUTRITION-RELATED LAB VALUES LOW: HIGH: glu 182; AST 53 Est. kcal needs: 0492-7614 kcal | 15-20 kcal/kg Est. Pro needs: 77-96 g Pro | 0.8-1.0 g Pro/kg PES STATEMENT: Given pt's PO intake, no nutrition diagnosis at this time (NO-1.1) INTERVENTION: Continue with current diet of CHO 60g/m 3snack diet. Will continue to follow and reassess as pt needs and status change. MONITOR/EVALUATE: PO Intake; Plan of Care; Hydration Status; Weight Status; Lab Values Germán Azar, , RD, LD"
--- NOTE | 2019-02-20 17:20 | Pulmonary Progress Note ---
Subjective Time Seen by a Provider: 17:20 Subjective/Events-last exam No complications noted. Sepsis Event Evaluation Height, Weight, BMI Height: 5'4.00" Weight: 219lbs. 1.0oz. 99.055886ya; 35.13 BMI Method:Stated Exam Exam Vital Signs Date Time Temp Pulse Resp B/P (MAP) Pulse Ox O2 Delivery O2 Flow Rate FiO2 02/20/19 15:35 37.0 106 16 162/69 (100) 93 Nasal Cannula 2.00 02/20/19 13:00 103 02/20/19 11:46 94 Nasal Cannula 2.00 02/20/19 11:02 37.1 85 20 137/71 (93) 95 Nasal Cannula 2.00 02/20/19 07:00 94 02/20/19 04:59 37.0 84 16 169/78 (108) 96 NIV Bilevel 2.00 02/20/19 01:00 78 02/19/19 21:03 Nasal Cannula 2.00 02/19/19 19:00 98 02/19/19 18:08 37.1 106 20 165/73 (103) 99 Nasal Cannula 2.00 I & O 02/20/19 06:59 Intake Total 3200 ml Balance 3200 ml Height & Weight Height: 5'4.00" Weight: 219lbs. 1.0oz. 99.977931ki; 35.13 BMI Method:Stated General Appearance: No Apparent Distress, WD/WN, Chronically ill, Obese HEENT: PERRL/EOMI, Normal ENT Inspection, Pharynx Normal Neck: Full Range of Motion, Normal Inspection, Non Tender, Supple, Carotid Bru it Respiratory: Chest Non Tender, Lungs Clear, No Accessory Muscle Use, No Res piratory Distress, Decreased Breath Sounds Cardiovascular: Regular Rate, Rhythm, No Edema, No Gallop, No JVD, No Murmur, Normal Peripheral Pulses Extremity: Normal Capillary Refill, Normal Inspection, Normal Range of Motion, Non Tender, No Calf Tenderness, No Pedal Edema Neurologic/Psychiatric: Alert, Oriented x3, No Motor/Sensory Deficits, Normal Mood/Affect Skin: Normal Color, Warm/Dry Lymphatic: No Adenopathy Results Lab Laboratory Tests 02/20/19 05:43 Assessment/Plan Assessment/Plan S/p recent syncope COPD with hx of multiple AE -oxygen -SVNS, adviar -Will plan out pt PFT -CXR reviewed Bradycardia, SSS -Cardiology following Acute renal failure -Monitor CAD with hx of stent placement COPD, history of multiple episodes of exacerbation Obesity with JORGE LUIS and probable OHS -pt is on CPAP therapy DM II ELIZABETH FRANCISCO DO Feb 20, 2019 17:20 POS
--- NOTE | 2019-02-20 19:15 | NUR ---
bedside report received from CHRISTAL VIVAR, assume care of pt
[2019-02-20 21:40] VITALS: BP 162/75
[2019-02-20] MEDS: FENOFIBRATE 134 MG (LOFIBRA) CAPSULE PO SCH (21:46)
[2019-02-20] MEDS: MAGNESIUM OXIDE (MAG-OX)400 MG TAB PO SCH (21:47)
[2019-02-20] MEDS: doxAzosin 1 MG (CARDURA) TAB PO SCH (21:47)
[2019-02-20] MEDS: PRIMIDONE 50 MG TAB (MYSOLINE) PO SCH (21:47)
--- NOTE | 2019-02-20 21:48 | NUR ---
fsbs 245 on pt own insulin scale NovoLog 48 units & scheduled Levemir 15 units with hs snack
[2019-02-21 05:55] VITALS: BP 148/77
[2019-02-21] MEDS: inSUlin ASPART (NovoLOG) 1 UNIT/0.01 ML (CHARGE PER UNIT) SC SCH ×4 (06:27→21:31)
[2019-02-21] MEDS: MULTIVIT W/MINERALS TAB (THERAGRAN M) PO SCH (06:28)
--- NOTE | 2019-02-21 07:10 | NUR ---
bedside report given to ELSIE VIVAR
[2019-02-21] MEDS: RT-ALBUTEROL/IPRATROPIUM 3 ML (DUONEB) VIAL INH SCH ×3 (07:42→22:49)
[2019-02-21] MEDS: RT-ADVAIR HFA 115/21 MCG PER PUFF IH SCH ×2 (07:49→22:48)
--- NOTE | 2019-02-21 07:55 | PM&R Progress Note ---
Subjective HPI/CC On Admission Date Seen by Provider: Feb 21, 2019 Time Seen by Provider: 08:45 Subjective/Events-last exam Pt a bit tired today. No significant pain. Venofer given and tolerated well. Dr. West rounded on her and noted systolic BP in the 170s, EKG reveals normal sinus rhythm. Toprol was started. BMs are good. Overall doing very well. Checked meds and labs Reviewed therapy notes Conferred with clinical documentation specialist of Systems General: Fatigue Pulmonary: Dyspnea Objective Exam Vital Signs Vital Signs Date Time Temp Pulse Resp B/P (MAP) Pulse Ox O2 Delivery O2 Flow Rate FiO2 02/21/19 17:32 37.0 79 18 137/71 (93) 98 Nasal Cannula 2.00 Capillary Refill : General Appearance: No Apparent Distress, WD/WN, Chronically ill, Obese HEENT: PERRL/EOMI, Normal ENT Inspection, Pharynx Normal Neck: Full Range of Motion, Normal Inspection, Non Tender, Supple, Carotid Bruit Respiratory: Chest Non Tender, Lungs Clear, No Accessory Muscle Use, No Respiratory Distress, Decreased Breath Sounds Cardiovascular: Regular Rate, Rhythm, No Edema, No Gallop, No JVD, No Murmur, Normal Peripheral Pulses Gastrointestinal: Normal Bowel Sounds, No Organomegaly, No Pulsatile Mass, Non Tender, Soft Back: Normal Inspection, No CVA Tenderness, No Vertebral Tenderness Extremity: Normal Capillary Refill, Normal Inspection, Normal Range of Motion, Non Tender, No Calf Tenderness, No Pedal Edema Neurologic/Psychiatric: Alert, Oriented x3, No Motor/Sensory Deficits, Normal Mood/Affect Skin: Normal Color, Warm/Dry Lymphatic: No Adenopathy Results/Procedures Lab Patient resulted labs reviewed. FIM Transfers Therapy Code Descriptions/Definitions Functional Collyer Measure: 0=Not Assessed/NA 4=Minimal Assistance 1=Total Assistance 5=Supervision or Setup 2=Maximal Assistance 6=Modified Collyer 3=Moderate Assistance 7=Complete IndependenceSCALE: Activities may be completed with or without assistive devices. 9-Awfjfxcjhx-ajlzwsi completes the activity by him/herself with no assistance from a helper. 5-Set-up or Clean-up Assistance-helper sets up or cleans up; patient completes activity. Monon assists only prior to or following the activity. 4-Supervision or Touching Assistance-helper provides verbal cues and/or touching/steadying and/or contact guard assistance as patient completes activity. Assistance may be provided throughout the activity or intermittently. 3-Partial/Moderate Assistance-helper does LESS THAN HALF the effort. Monon lifts, holds or supports trunk or limbs, but provides less than half the effort. 2-Substantial/Maximal Assistance-helper does MORE THAN HALF the effort. Monon lifts or holds trunk or limbs and provides more than half the effort. 1-Agdltftpx-zxkckx does ALL the effort. Patient does none of the effort to complete the activity. Or, the assistance of 2 or more helpers is required for the patient to complete the activity. If activity was not attempted, code reason: 7-Patient Refused. 9-Not Applicable-not attempted and the patient did not perform the activity before the current illness, exacerbation or injury. 10-Not Attempted due to Environmental Limitations-(lack of equipment, weather restraints, etc.). 88-Not Attempted due to Medical Conditions or Safety Concerns. Roll Left to Right (QC): 6 Sit to Lying (QC): 6 Sit to Stand (QC): 4 (CGA) Chair/Fky-kp-Yglqs Xfer(QC): 4 (CGA) Car Transfer (QC): 4 Gait Training Does the Patient Walk?: Yes Distance: 120',70' Walk 10 feet (QC): 4 (CGA) Walk 50 ft with 2 Turns(QC): 4 (CGA) Walk 150 ft (QC): 4 (CGA) Walking 10ft/uneven surface-QC: 4 Gait Persons Needed: 1 Gait Assistive Device: Cane Single Point (huricane) Wheelchair Training Does the Pt Use a Wheelchair?: No Wheel 50 ft with 2 turns (QC): 9 Wheel 150 ft (QC): 9 Type of Wheelchair: Manual Stair Training #of Steps: 12 1 Step (curb) (QC): 4 4 Steps (QC): 4 12 Steps (QC): 4 Balance Picking up an Object (QC): 4 ADL-Treatment Eating (QC): 6 (per report) Oral Hygiene (QC): 5 (Pt completed oral hygine with set up standing with cane at the sink.) Bathing Location: L Arm, R Arm, L Upper Leg, R Upper Leg, L Lower Leg (including foot), R Lower Leg (including foot), Chest, Abdomen, Buttocks, Perineal Area Shower/Bathe Self (QC): 5 (using hand held shower, bench and grabbars, pt required set up to complete the task.) Upper Body Dressing (QC): 5 (Set up to complete.) Lower Body Dressing (QC): 4 (SBA while completing the LB dressing.) On/Off Footwear (QC): 4 (SBA while seated EOB.) Toileting Hygiene (QC): 7 (Pt declined using the toilet.) Toilet Transfer (QC): 7 Assessment/Plan Assessment and Plan Assess & Plan/Chief Complaint Assessment: Severe bradycardia symptomatic s/p Cardiology w/u at [facility] and [place] multiple meds AMS/Encephalopathy now resolved Severe anemia s/p EGD/Colon and capsule endoscopy negative results iron 53 so will start Venofer 02/19/19 after placing midline HTN DM labile control HLP Chronic AF Severe COPD O2 dependent Volume overload hx Plan: Appreciate Guillermina Luna and Zach O2 Nebs Home meds on DC list from [facility] Venofer Increase insulin Midline Poor venous access Toprol added back per Dr West (1) Debility (2) Encephalopathy (3) Diabetes mellitus, type 2 Status: Chronic (4) CKD (chronic kidney disease) Status: Chronic (5) GERD (gastroesophageal reflux disease) Status: Chronic (6) A-fib (7) HTN (hypertension) Status: Chronic (8) HLD (hyperlipidemia) Status: Chronic (9) COPD (chronic obstructive pulmonary disease) (10) RESPIRATORY FAILURE, UNSP, UNSP W HYPOXIA OR HYPERCAPNIA (11) Multilevel degenerative disc disease (12) Lumbar spondylosis (13) Bradycardia Status: Acute ZACK ESCOBEDO DO Feb 21, 2019 07:55 POS
--- NOTE | 2019-02-21 08:00 | NUR ---
COMPLAIN TIRED. DENIES PAIN. DR. MILLER HERE TO SEE PATIENT. HYPERTENSIVE AND TACHYCARDIC. EKG DONE ORDERED AND STARTED ON TOPROL.
--- NOTE | 2019-02-21 08:36 | Cardiology Progress Note ---
Subjective Date Seen by Provider: Feb 21, 2019 Time Seen by Provider: 08:00 Subjective/Events-last exam Patient sitting up in bed, denies any chest pain, dyspnea, or dizziness. Review of Systems General: No Chills, No Night Sweats, No Fatigue, No Malaise, No Appetite, No Other HEENT: No Head Aches, No Visual Changes, No Eye Pain, No Ear Pain, No Dysphasia, No Sinus Congestion, No Post Nasal Drip, No Sore Throat, No Other Pulmonary: No Dyspnea, No Cough, No Pleuritic Chest Pain, No Other Cardiovascular: No: Chest Pain, Palpitations, Orthopnea, Paroxysmal Noc. Dyspnea, Edema, Lt Headedness, Other Objective-Cardiology Exam Last Set of Vital Signs Vital Signs 02/21/19 02/21/19 02/21/19 05:55 07:00 07:42 Temp 36.8 Pulse 92 Resp 18 B/P (MAP) 148/77 (100) Pulse Ox 98 O2 Delivery Nasal Cannula O2 Flow Rate 2.00 Capillary Refill : I&O Intake and Output 02/21/19 00:00 Intake Total 500 ml Balance 500 ml Intake Oral 500 ml # Voids 2 General: Alert, Oriented X3, Cooperative HEENT: Atraumatic, PERRLA Neck: Supple, No JVD, No Thyromegaly Lungs: Clear to Auscultation, Normal Air Movement Heart: Regular Rate, Normal S1, Normal S2, No Murmurs Abdomen: Normal Bowel Sounds, Soft, No Tenderness, No Hepatosplenomegaly, No Masses Extremities: No Clubbing, No Cyanosis, No Edema, Normal Pulses, No Tenderness/Swelling Skin: No Rashes, No Breakdown, No Significant Lesion Neuro: Normal Gait, Normal Speech, Strength at 5/5 X4 Ext, Normal Tone, Sensation Intact Psych/Mental Status: Mental Status NL, Mood NL Results Lab Laboratory Tests Test 02/20/19 10:52 02/20/19 15:34 02/20/19 20:22 02/21/19 05:36 Range/Units Glucometer 187 H 226 H 245 H 183 H 70-110 MG/DL A/P-Cardiology Admission Diagnosis Syncope SSS/PAF CAD HTN Assessment/Plan Recent syncope,noted to have marked bradycardia at a time that she was on Multaq, Cardizem, and beta-eliseo. Loop interrogation done at [facility] revealed 2 3 second pauses on 02/05/19, unlikely to be the cause of her unresponsiveness.. Now off Multaq and Cardizem and beta-eliseo, no further syncope or bradycardia noted. SSS/PAF, h/o sinus node dysfunction with severe bradycardia in the past. S/p Linq implantation in 2018. Currently in sinus rhythm, maintained on Xarelto. Echo on 02/18/19: LVEF 60-65%, mild to mod conc LVH, mild enlargement of LA, mild MAC, mild to mod TR, RVSP 44 mmHg [id number] score of 4, yearly risk of stroke without oral anticoagulation is 4 percent. Maintained on Xarelto 15mg. Severe carotid arterial disease: 80-99% R ICA, 50-79% L ICA (as reported by [facility] on 02/10/19). Will need appt with CV surgeon. COPD, history of multiple episodes of exacerbation, continue to monitor. Acute renal failure, continues to improve. H/o severe anemia of undetermined etiology, underwent EGD/colonoscopy in [facility] in 2018, reports no source of bleeding. I will try to obtain records for further review. Coronary artery disease, history of stent placement 2 to the LAD: Taxus 320 mm stent in the mid LAD, proximal to that is 312 mm Ion stent. Cardiac catheterization done March 05, 2017 revealed severe LAD stenosis beyond the previously known stent, treated with 3.08 mm ALPINE expanded to 3.5, balloon for in-stent restenosis also was done. Most recent cardiac catheterization done March 09, 2018 revealed patent stent with small vessel disease, no intervention required, consider repeating stress test as outpatient. Hypertension. Renal arterial duplex done July 2015: proximal right renal artery not evaluated, other segments of the left renal artery demonstrated no evidence of significant stenosis. I will start Toprol XL 25mg daily, continue to monitor. Hyperlipidemia, continue to monitor. Obesity with obesity-hypoventilation and obstructive sleep apnea treated with CPAP Diabetes mellitus II Chronic back pain, history of lumbar surgery in the past Generalized debility/weakness, continue PT/OT Patient was seen and evaluated with Kaela, examination performed, management plan was discussed, agree with the current scribed note, I made few changes to the note using Italic font On examination lungs were clear to auscultation bilaterally, heart is regular Continue on current medication and monitor blood pressure and lipids Monitor blood pressure Clinical Quality Measures DVT/VTE Risk/Contraindication: Risk Factor Score Per Nursin RFS Level Per Nursing on Admit: 4+=Very High KAELA CAPPS Feb 21, 2019 8:36 am BOOM REED MD Feb 21, 2019 8:39 am POS
--- NOTE | 2019-02-21 09:24 | Physical Therapy Daily Note ---
PT Daily Note-Current Subjective pt on toilet pre-tx agrees to therapy denies pain or SOB at this time. Appearance pt in recliner post-tx with call light, room phone, tray table in reach with all needs met at this time. Mental Status Patient Orientation: Person, Place, Time, Situation Attachments: Oxygen (2L) Transfers SCALE: Activities may be completed with or without assistive devices. 9-Vqzqthxvbw-wfqmbkd completes the activity by him/herself with no assistance from a helper. 5-Set-up or Clean-up Assistance-helper sets up or cleans up; patient completes activity. Colony assists only prior to or following the activity. 4-Supervision or Touching Assistance-helper provides verbal cues and/or touching/steadying and/or contact guard assistance as patient completes activity. Assistance may be provided throughout the activity or intermittently. 3-Partial/Moderate Assistance-helper does LESS THAN HALF the effort. Colony lifts, holds or supports trunk or limbs, but provides less than half the effort. 2-Substantial/Maximal Assistance-helper does MORE THAN HALF the effort. Colony lifts or holds trunk or limbs and provides more than half the effort. 6-Rpahkseer-ubgnmj does ALL the effort. Patient does none of the effort to complete the activity. Or, the assistance of 2 or more helpers is required for the patient to complete the activity. If activity was not attempted, code reason: 7-Patient Refused. 9-Not Applicable-not attempted and the patient did not perform the activity before the current illness, exacerbation or injury. 10-Not Attempted due to Environmental Limitations-(lack of equipment, weather restraints, etc.). 88-Not Attempted due to Medical Conditions or Safety Concerns. Sit to Stand (QC): 4 (SBA) Chair/Wxd-sv-Hqstf Xfer(QC): 4 (SBA) Weight Bearing Right Lower Extremity: Right Full Weight Bearing Left Lower Extremity: Left Full Weight Bearing Gait Training Does the Patient Walk?: Yes Distance: 300' 80' Walk 10 feet (QC): 4 (SBA) Walk 50 ft with 2 Turns(QC): 4 (SBA) Walk 150 ft (QC): 4 (SBA) Gait Assistive Device: Cane Single Point pt continues to improve and normalize gait pattern and has no obvious LOB this session. Exercises Standing: Heel/toe raises, 3 way Ex=Flex, Abd, Ext, Mini squats (on nustep 2x15 ), Step-ups Standing Reps: 30 (2sets 15reps) NuStep Minutes: 15 NuStep Workload: 4 Treatments pt performed transfer training, skilled ambulation training, functional LE strengthening/endurance training, and education. Assessment Current Status: Good Progress pt continues to fatigue quickly and be limited in ambulation distance by LE fatigue and R hip pain. Pt is motivated and willing to work with therapy. PT Short Term Goals Short Term Goals Time Frame: Feb 24, 2019 Sit to stand: 6 Toilet transfer: 6 PT Parking Technician Goals Parking Technician Goals PT Parking Technician Goals Time Frame: Mar 03, 2019 Roll Left & Right (QC): 6 Sit to Lying (QC): 6 Lying-Sitting on Side/Bed(QC): 6 Sit to Stand (QC): 6 Chair/Sop-wv-Wuwtt Xfer(QC): 6 Toilet Transfer (QC): 6 Car Transfer (QC): 6 Does the Patient Walk: Yes Walk 10 feet (QC): 6 Walk 50ft with 2 Turns (QC): 6 Walk 150 ft (QC): 6 Walking 10ft on Uneven Surface: 6 1 Step (curb) (QC): 6 4 Steps (QC): 6 12 Steps (QC): 6 Picking up an Object (QC): 6 Does the Pt use WC or Scooter?: No Type: N/A Type: N/A PT Plan Problem List Problem List: Activity Tolerance, Functional Strength, Safety, Balance, Gait, Transfer, Bed Mobility, ROM Treatment/Plan Treatment Plan: Continue Plan of Care Treatment Plan: Education, Functional Activity Diane, Functional Strength, Group Therapy, Gait, Safety, Therapeutic Exercise, Transfers Treatment Duration: Mar 03, 2019 Frequency: Modified Program (IRF) (03/10) Estimated Hrs Per Day: 1.5 hours per day Patient and/or Family Agrees t: Yes Safety Risks/Education Patient Education: Gait Training, Transfer Techniques, Correct Positioning, Safety Issues Teaching Recipient: Patient Teaching Methods: Demonstration, Discussion Response to Teaching: Return Demonstration, Reinforcement Needed Time/GCodes Time In: 0830 Time Out: 09 Total Billed Treatment Time: 60 Total Billed Treatment 1 visit GT 15' FA 15' EX 30' FLORINDA SMART PT Feb 21, 2019 09:24 POS
[2019-02-21] MEDS: IRON SUCROSE 200 MG/10 ML (VENOFER) VIAL IV SCH (09:43)
[2019-02-21] MEDS ORDERED: CATHETER FLUSH 10 ML SYR IV PRN (09:45)
[2019-02-21] MEDS: SENNA W/DOCUSATE (SENOKOT S) TABLET PO SCH ×2 (09:54→21:31)
[2019-02-21] MEDS: ISOSORBIDE MONONITRATE 60 MG (IMDUR) TAB PO SCH (09:54)
[2019-02-21] MEDS: amLODIPine 10 MG (NORVASC) TAB PO SCH (09:54)
[2019-02-21] MEDS: OMEGA 3 (FISH OIL) 1000 MG CAP PO SCH (09:54)
[2019-02-21] MEDS: TORSEMIDE 20 MG (DEMADEX) TAB PO SCH (09:54)
[2019-02-21] MEDS: ASPIRIN E.C. 81 MG (ECOTRIN) TAB PO SCH (09:54)
[2019-02-21] MEDS: PANTOPRAZOLE 40 MG (PROTONIX) TAB PO SCH (09:54)
[2019-02-21] MEDS: GABAPENTIN 600 MG (NEURONTIN) TAB PO SCH ×3 (09:54→21:31)
[2019-02-21] MEDS: SPIRONOLACTONE 25 MG (ALDACTONE) TAB PO SCH (09:54)
[2019-02-21] MEDS: POLYETHYLENE GLYCOL 17 GM (MIRALAX) PACK PO SCH ×2 (09:54→21:31)
[2019-02-21] MEDS: RIVAROXABAN 15 MG TABLET (XARELTO) PO SCH (09:58)
--- NOTE | 2019-02-21 12:29 | Occupational Ther Daily Note ---
OT Current Status-Daily Note Subjective Pt stated " Am tired" from working with PT. Appearance Pt seated in recliner. Pt agrees to therapy treatment. Mental Status/Objective Patient Orientation: Person, Place, Time, Situation Attachments: IV, Oxygen ADL-Treatment Therapy Code Descriptions/Definitions Functional Gile Measure: 0=Not Assessed/NA 4=Minimal Assistance 1=Total Assistance 5=Supervision or Setup 2=Maximal Assistance 6=Modified Gile 3=Moderate Assistance 7=Complete IndependenceSCALE: Activities may be completed with or without assistive devices. 1-Vcoqzimzwn-gfqbbsb completes the activity by him/herself with no assistance from a helper. 5-Set-up or Clean-up Assistance-helper sets up or cleans up; patient completes activity. Unity assists only prior to or following the activity. 4-Supervision or Touching Assistance-helper provides verbal cues and/or touching/steadying and/or contact guard assistance as patient completes activity. Assistance may be provided throughout the activity or intermittently. 3-Partial/Moderate Assistance-helper does LESS THAN HALF the effort. Unity lifts, holds or supports trunk or limbs, but provides less than half the effort. 2-Substantial/Maximal Assistance-helper does MORE THAN HALF the effort. Unity lifts or holds trunk or limbs and provides more than half the effort. 8-Wfsmecrgn-hdlemq does ALL the effort. Patient does none of the effort to complete the activity. Or, the assistance of 2 or more helpers is required for the patient to complete the activity. If activity was not attempted, code reason: 7-Patient Refused. 9-Not Applicable-not attempted and the patient did not perform the activity be fore the current illness, exacerbation or injury. 10-Not Attempted due to Environmental Limitations-(lack of equipment, weather restraints, etc.). 88-Not Attempted due to Medical Conditions or Safety Concerns. Oral Hygiene (QC): 6 (Pt completed oral hygiene standing with cane at the sink.) Bathing Location: L Arm, R Arm, L Upper Leg, R Upper Leg, L Lower Leg (including foot), R Lower Leg (including foot), Chest, Abdomen, Buttocks, Perineal Area Shower/Bathe Self (QC): 5 (using grab bars, hand held shower, pt completed shower with set up seated on a bench. ) Upper Body Dressing (QC): 5 (required set up to complete UB dressing.) Lower Body Dressing (QC): 4 (Pt required CGA when standing with cane to hike pants over hips.) Toileting Hygiene (QC): 7 (Declined using toilet.) Toilet Transfer (QC): 7 Footwear (5) using sock aid to don socks, pt required set up to complete the task. Other Treatment Pt reported that she already got her clothes out. Pt ambulated with cane and SBA to the shower room. Pt completed shower seated on the bench. Pt dried self while standing in the shower. Pt transferred to the chair and completed dressing. Pt brushed hair seated on a chair at the sink. Pt had 2 litres of oxygen on throughout the treatment. Pt required extended time to complete the tasks. Pt ambulated with cane and SBA to the closet to put dirty laundry together. Pt ambulated with cane and SBA to her recliner. Pt seated in recliner at end of session. Call light/phone in reach. All needs met in room. Education OT Patient Education: Energy conservation, Modified ADL techniques, Progress toward Goal/Update tx plan, Purpose of tx/functional activities, Reviewed precautions, Rehab process, Transfer techniques, Use of adapted equipment Teaching Recipient: Patient Teaching Methods: Demonstration, Discussion Response to Teaching: Verbalize Understanding, Return Demonstration OT Utility Specialist Goals Longterm Goals Time Frame: Mar 03, 2019 Eating (QC): 6 Oral Hygiene (QC): 6 Toileting Hygiene (QC): 6 Shower/Bathe Self (QC): 6 Upper Body Dressing (QC): 6 Lower Body Dressing (QC): 6 On/Off Footwear (QC): 6 Additional Goals: 1-Demonstrate ADL Tasks, 2-Verbalize Understanding, 3- ImproveStrength/Diane 1=Demonstrate adherence to instructed precautions during ADL tasks. 2=Patient will verbalize/demonstrate understanding of assistive devices/modifications for ADL. 3=Patient will improve strength/tolerance for activity to enable patient to perform ADL's. OT Education/Plan Problem List/Assessment Assessment: Decreased Activ Tolerance, Decreased UE Strength, Impaired I ADL's Discharge Recommendations Plan/Recommendations: Continue POC Therapy Discharge Recommendati: Post Acute OT Equpiment Recommendations-D/C: Sock Aide Treatment Plan/Plan of Care Treatment,Training & Education: Yes Patient would benefit from OT for education, treatment and training to promote independence in ADL's, mobility, safety and/or upper extremity function for ADL's. Plan of Care: ADL Retraining, Functional Mobility, Group Exercise/Act as Ind, UE Funct Exercise/Act Treatment Duration: Mar 03, 2019 Frequency: At least 5 of 7 days/Wk (IRF) Estimated Hrs Per Day: 1.5 hours per day Agreement: Yes Rehab Potential: Good Time/GCodes Start Time: 10:30 Stop Time: 11:30 Total Time Billed (hr/min): 60 Billed Treatment Time 1, ADL x4 (60 Min) DOV BADILLO OT Feb 21, 2019 12:29 POS
--- NOTE | 2019-02-21 14:26 | Therapy Group Daily Note ---
Therapy Daily Group Note Patient Education Topic Home Safety, Fall Prevention, Exercises Exercises LE Seated Exercise, Stretching, Gross Motor Session Ratio (pt:therapist): 4:1 Goal of Session: Home Safety Strategies, Memory Strategies, Safety with Transfers To increase overall education on home safety, as well as to increase socialization, mood, and interaction with other pt.s in similiar situations. Goal Met for this Session: Yes Pt Benefit of Group: Contributions to Others, F/U Use of Strategies @Home, Increased Functional Safety, Improved Cognition, Recognition of Peers, Socialization Other/Notes Pt. participated in group therapy session to work on socialization, memory, LE strength, as well as core strength. Pt. ambulated to therapy gym with walker and SBA. Participated in socialization task with saying her name, where she was from, and answering question regarding [place] song from memory. Pt. then participated in LE ROM exercises, as well as core strength exercises seated. Pt. educated on importance of these exercises for ambulation and endurance strategies. Pt. then participated in home safety education, with therapist speaking about each room in the house, and how to implement safety in the home. Therapist demonstrated safe floor transfer as well. Ended session with "name that tune" on Margarita songs. Pt. able to participate with other pt.s and engage in conversations regarding [place] memories. Pt. ambulated back to room with SBA. All needs met. Start Time: 13:00 Stop Time: 14:10 Total Billed Treatment Time: 70 Total Billed Treatment 1, GRP DOV BADILLO OT Feb 21, 2019 14:26 POS
[2019-02-21] MEDS: CATHETER FLUSH 10 ML SYR IV SCH ×2 (15:09→22:07)
[2019-02-21] MEDS: HYDROcodone/APAP 5 MG/325 MG (LORTAB) TAB PO PRN (15:34)
[2019-02-21 17:32] VITALS: BP 137/71
[2019-02-21] MEDS: MAGNESIUM OXIDE (MAG-OX)400 MG TAB PO SCH (21:31)
[2019-02-21] MEDS: PRIMIDONE 50 MG TAB (MYSOLINE) PO SCH (21:31)
[2019-02-21] MEDS: FENOFIBRATE 134 MG (LOFIBRA) CAPSULE PO SCH (21:31)
[2019-02-21] MEDS: doxAzosin 1 MG (CARDURA) TAB PO SCH (21:31)
[2019-02-22 05:40] VITALS: BP 146/71
[2019-02-22] MEDS: MULTIVIT W/MINERALS TAB (THERAGRAN M) PO SCH (06:27)
[2019-02-22] MEDS: inSUlin ASPART (NovoLOG) 1 UNIT/0.01 ML (CHARGE PER UNIT) SC SCH ×4 (06:28→20:59)
[2019-02-22] MEDS: CATHETER FLUSH 10 ML SYR IV SCH ×3 (06:28→21:00)
--- NOTE | 2019-02-22 08:58 | Physical Therapy Daily Note ---
PT Daily Note-Current Subjective Patient states she is doing well this morning; transferred from chair to bed unsupervised earlier. Reports concern about managing at home after discharge. Reports 4/10 R hip pain during ambulation. Pain Numeric Pain Scale: 4 Location: Right Location Body Site: Hip Pain Description: Ache Mental Status Patient Orientation: Normal For Age Attachments: Oxygen (2L) Transfers SCALE: Activities may be completed with or without assistive devices. 0-Pbgljwrvte-grdvxwx completes the activity by him/herself with no assistance from a helper. 5-Set-up or Clean-up Assistance-helper sets up or cleans up; patient completes activity. [place] assists only prior to or following the activity. 4-Supervision or Touching Assistance-helper provides verbal cues and/or touching/steadying and/or contact guard assistance as patient completes activity. Assistance may be provided throughout the activity or intermittently. 3-Partial/Moderate Assistance-helper does LESS THAN HALF the effort. [place] lifts, holds or supports trunk or limbs, but provides less than half the effort. 2-Substantial/Maximal Assistance-helper does MORE THAN HALF the effort. [place] lifts or holds trunk or limbs and provides more than half the effort. 0-Anrfmnion-vjgfck does ALL the effort. Patient does none of the effort to complete the activity. Or, the assistance of 2 or more helpers is required for the patient to complete the activity. If activity was not attempted, code reason: 7-Patient Refused. 9-Not Applicable-not attempted and the patient did not perform the activity before the current illness, exacerbation or injury. 10-Not Attempted due to Environmental Limitations-(lack of equipment, weather restraints, etc.). 88-Not Attempted due to Medical Conditions or Safety Concerns. Roll Left & Right (QC): 6 Sit to Lying (QC): 6 Lying to Sitting/Side of Bed(Q: 6 Sit to Stand (QC): 4 Chair/Clx-do-Mkeve Xfer(QC): 4 SBA for transfers Weight Bearing Right Lower Extremity: Right Full Weight Bearing Left Lower Extremity: Left Full Weight Bearing Gait Training Does the Patient Walk?: Yes Distance: 300'; 150' Walk 10 feet (QC): 4 Walk 50 ft with 2 Turns(QC): 4 Walk 150 ft (QC): 4 Gait Assistive Device: Cane Single Point SBA with SPC Exercises Supine Ex: Ankle pumps, Quad Set, Glut sets, Heel Slides, Straight leg raise, Hip abd/add Supine Reps: 15 Seated Therapy Exercises: Sit to stand, Long arc quads, Hip flexion, Hip abd/add Seated Reps: 15 Standing: Heel/toe raises, 3 way Ex=Flex, Abd, Ext, Marching, Mini squats, Weight shifts Standing Reps: 15 NuStep Minutes: 12 NuStep Workload: 6 Assessment Patient performed all bed mobility independently. SBA to stand and ambulate with SPC. Patient ambulated 300' at beginning of session and an additional 150' at conclusion. Completed 15 reps of all supine, seated, and standing exercises, demonstrating good LE strength and working towards patient goal of strengthening and ambulation. Patient completed 12 minutes on NuStep at level 6 to continue LE strengthening. Patient reported LE fatigue at conclusion of treatment. Patient did not have SOB during session so O2 sats were not taken. PT Short Term Goals Short Term Goals Time Frame: Feb 24, 2019 Sit to stand: 6 Toilet transfer: 6 PT Mcfp Goals Mcfp Goals PT Rotary Kiln Operator Goals Time Frame: Mar 03, 2019 Roll Left & Right (QC): 6 Sit to Lying (QC): 6 Lying-Sitting on Side/Bed(QC): 6 Sit to Stand (QC): 6 Chair/Esb-za-Fifrq Xfer(QC): 6 Toilet Transfer (QC): 6 Car Transfer (QC): 6 Does the Patient Walk: Yes Walk 10 feet (QC): 6 Walk 50ft with 2 Turns (QC): 6 Walk 150 ft (QC): 6 Walking 10ft on Uneven Surface: 6 1 Step (curb) (QC): 6 4 Steps (QC): 6 12 Steps (QC): 6 Picking up an Object (QC): 6 Does the Pt use WC or Scooter?: No Type: N/A Type: N/A PT Plan Treatment/Plan Treatment Plan: Continue Plan of Care Treatment Plan: Education, Functional Activity Diane, Functional Strength, Group Therapy, Gait, Safety, Therapeutic Exercise, Transfers Treatment Duration: Mar 03, 2019 Frequency: Modified Program (IRF) (03/10) Estimated Hrs Per Day: 1.5 hours per day Patient and/or Family Agrees t: Yes Safety Risks/Education Patient Education: Disease Process, Safety Issues Teaching Recipient: Patient Teaching Methods: Discussion Response to Teaching: Verbalize Understanding Time/GCodes Time In: 800 Time Out: 900 Total Billed Treatment Time: 60 Total Billed Treatment 1 visit EX x2 30min FA 15min GT 15min BLU SHEPHERD DEALMAKER Feb 22, 2019 08:58 POS
--- NOTE | 2019-02-22 09:03 | Cardiology Progress Note ---
Subjective Date Seen by Provider: Feb 22, 2019 Time Seen by Provider: 09:02 Subjective/Events-last exam Patient is with PT, no new complaints. Denies any chest pain or dyspnea. Review of Systems General: No Chills, No Night Sweats; Fatigue; No Malaise, No Appetite, No Other Pulmonary: Dyspnea; No Cough, No Pleuritic Chest Pain, No Other Cardiovascular: No: Chest Pain, Palpitations, Orthopnea, Paroxysmal Noc. Dyspnea, Edema, Lt Headedness, Other Objective-Cardiology Exam Last Set of Vital Signs Vital Signs 02/22/19 02/22/19 02/22/19 05:40 09:00 12:50 Temp 37.1 Pulse 91 Resp 22 B/P (MAP) 146/71 (96) Pulse Ox 97 O2 Delivery Nasal Cannula O2 Flow Rate 2.00 Capillary Refill : I&O Intake and Output 02/22/19 00:00 Intake Total 1580 ml Output Total 2 ml Balance 1578 ml Intake Oral 1580 ml Output Stool Total 2 ml # Voids 6 General: Alert, Oriented X3, Cooperative HEENT: Atraumatic, PERRLA Neck: Supple, No JVD, No Thyromegaly Lungs: Clear to Auscultation, Normal Air Movement Heart: Regular Rate, Normal S1, Normal S2, No Murmurs Abdomen: Normal Bowel Sounds, Soft, No Tenderness, No Hepatosplenomegaly, No Masses Extremities: No Clubbing, No Cyanosis, No Edema, Normal Pulses, No Tenderness/Swelling Skin: No Rashes, No Breakdown, No Significant Lesion Neuro: Normal Gait, Normal Speech, Strength at 5/5 X4 Ext, Normal Tone, Sensation Intact Psych/Mental Status: Mental Status NL, Mood NL Results Lab Laboratory Tests Test 02/21/19 20:34 02/22/19 06:05 02/22/19 10:33 02/22/19 15:37 Range/Units Glucometer 177 H 246 H 120 H 249 H 70-110 MG/DL A/P-Cardiology Admission Diagnosis Syncope SSS/PAF CAD HTN Assessment/Plan Recent syncope,noted to have marked bradycardia at a time that she was on Multaq, Cardizem, and beta-eliseo. Loop interrogation done at [facility] revealed 2 3 second pauses on 02/05/19, unlikely to be the cause of her unresponsiveness.. Now off Multaq and Cardizem and beta-eliseo, no further syncope or bradycardia noted. SSS/PAF, h/o sinus node dysfunction with severe bradycardia in the past. S/p Linq implantation in 2018. Currently in sinus rhythm, maintained on Xarelto. Echo on 02/18/19: LVEF 60-65%, mild to mod conc LVH, mild enlargement of LA, mild MAC, mild to mod TR, RVSP 44 mmHg [id number] score of 4, yearly risk of stroke without oral anticoagulation is 4 percent. Maintained on Xarelto 15mg. Severe carotid arterial disease: 80-99% R ICA, 50-79% L ICA (as reported by [facility] on 02/10/19). Will need appt with CV surgeon. COPD, history of multiple episodes of exacerbation, continue to monitor. Acute renal failure, continues to improve. H/o severe anemia of undetermined etiology, underwent EGD/colonoscopy in [facility] in 2018, reports no source of bleeding. I will try to obtain records for further review. Coronary artery disease, history of stent placement 2 to the LAD: Taxus 320 mm stent in the mid LAD, proximal to that is 312 mm Ion stent. Cardiac catheterization done March 05, 2017 revealed severe LAD stenosis beyond the previously known stent, treated with 3.08 mm ALPINE expanded to 3.5, balloon for in-stent restenosis also was done. Most recent cardiac catheterization done March 09, 2018 revealed patent stent with small vessel disease, no intervention required, consider repeating stress test as outpatient. Hypertension. Renal arterial duplex done July 2015: proximal right renal artery not evaluated, other segments of the left renal artery demonstrated no evidence of significant stenosis. I will start Toprol XL 25mg daily, continue to monitor. Hyperlipidemia, continue to monitor. Obesity with obesity-hypoventilation and obstructive sleep apnea treated with CPAP Diabetes mellitus II Chronic back pain, history of lumbar surgery in the past Generalized debility/weakness, continue PT/OT Patient was seen and evaluated with Kaela, examination performed, management plan was discussed, agree with the current scribed note, I made few changes to the note using Italic font Patient was seen at bedside, sitting comfortably, denied any active pain. On examination lungs were clear to auscultation, heart is regular, borderline tachycardic I restarted low-dose beta blockers and we will monitor her tolerance and response Continue on current medications. Clinical Quality Measures DVT/VTE Risk/Contraindication: Risk Factor Score Per Nursin RFS Level Per Nursing on Admit: 4+=Very High Supervisory-Addendum Brief Supervisory Addendum Participated in pt care: history, MDM, physical Personally performed: exam, history, MDM Care discussed with: KAELA HEAD Feb 22, 2019 09:03 BOOM REED MD Feb 22, 2019 16:51 POS
[2019-02-22] MEDS: GABAPENTIN 600 MG (NEURONTIN) TAB PO SCH ×3 (09:06→20:59)
[2019-02-22] MEDS: RIVAROXABAN 15 MG TABLET (XARELTO) PO SCH (09:07)
[2019-02-22] MEDS: SENNA W/DOCUSATE (SENOKOT S) TABLET PO SCH ×2 (09:07→21:00)
[2019-02-22] MEDS: OMEGA 3 (FISH OIL) 1000 MG CAP PO SCH (09:07)
[2019-02-22] MEDS: SPIRONOLACTONE 25 MG (ALDACTONE) TAB PO SCH (09:07)
[2019-02-22] MEDS: ISOSORBIDE MONONITRATE 60 MG (IMDUR) TAB PO SCH (09:07)
[2019-02-22] MEDS: TORSEMIDE 20 MG (DEMADEX) TAB PO SCH (09:07)
[2019-02-22] MEDS: amLODIPine 10 MG (NORVASC) TAB PO SCH (09:07)
[2019-02-22] MEDS: PANTOPRAZOLE 40 MG (PROTONIX) TAB PO SCH (09:08)
[2019-02-22] MEDS: ASPIRIN E.C. 81 MG (ECOTRIN) TAB PO SCH (09:08)
[2019-02-22] MEDS: POLYETHYLENE GLYCOL 17 GM (MIRALAX) PACK PO SCH ×2 (09:11→21:00)
--- NOTE | 2019-02-22 09:22 | PM&R Progress Note ---
Subjective HPI/CC On Admission Date Seen by Provider: Feb 22, 2019 Time Seen by Provider: 09:00 Subjective/Events-last exam DC is planned for 02/24/19 She is fearful of going home because the same thing might happen Bowel movement yesterday Will need a home health nurse, PT and OT Maintain on O2 Used her CPAP last night No CPAP is reported Checked meds and labs Reviewed therapy notes Conferred with teletray operator of Systems General: Fatigue Pulmonary: Dyspnea Objective Exam Vital Signs Vital Signs Date Time Temp Pulse Resp B/P (MAP) Pulse Ox O2 Delivery O2 Flow Rate FiO2 02/22/19 19:38 98 Nasal Cannula 2.00 02/22/19 17:27 37.0 88 18 161/73 (102) Capillary Refill : General Appearance: No Apparent Distress, WD/WN, Chronically ill, Obese HEENT: PERRL/EOMI, Normal ENT Inspection, Pharynx Normal Neck: Full Range of Motion, Normal Inspection, Non Tender, Supple, Carotid Bruit Respiratory: Chest Non Tender, Lungs Clear, No Accessory Muscle Use, No Respiratory Distress, Decreased Breath Sounds Cardiovascular: Regular Rate, Rhythm, No Edema, No Gallop, No JVD, No Murmur, Normal Peripheral Pulses Gastrointestinal: Normal Bowel Sounds, No Organomegaly, No Pulsatile Mass, Non Tender, Soft Back: Normal Inspection, No CVA Tenderness, No Vertebral Tenderness Extremity: Normal Capillary Refill, Normal Inspection, Normal Range of Motion, Non Tender, No Calf Tenderness, No Pedal Edema Neurologic/Psychiatric: Alert, Oriented x3, No Motor/Sensory Deficits, Normal Mood/Affect Skin: Normal Color, Warm/Dry Lymphatic: No Adenopathy Results/Procedures Lab Patient resulted labs reviewed. FIM Transfers Therapy Code Descriptions/Definitions Functional [place] Measure: 0=Not Assessed/NA 4=Minimal Assistance 1=Total Assistance 5=Supervision or Setup 2=Maximal Assistance 6=Modified [place] 3=Moderate Assistance 7=Complete IndependenceSCALE: Activities may be completed with or without assistive devices. 6-Mopkaaimrv-wzhdkrc completes the activity by him/herself with no assistance from a helper. 5-Set-up or Clean-up Assistance-helper sets up or cleans up; patient completes activity. [place] assists only prior to or following the activity. 4-Supervision or Touching Assistance-helper provides verbal cues and/or touching/steadying and/or contact guard assistance as patient completes activity. Assistance may be provided throughout the activity or intermittently. 3-Partial/Moderate Assistance-helper does LESS THAN HALF the effort. [place] lifts, holds or supports trunk or limbs, but provides less than half the effort. 2-Substantial/Maximal Assistance-helper does MORE THAN HALF the effort. [place] lifts or holds trunk or limbs and provides more than half the effort. 8-Fhwzllbjc-piivoj does ALL the effort. Patient does none of the effort to complete the activity. Or, the assistance of 2 or more helpers is required for the patient to complete the activity. If activity was not attempted, code reason: 7-Patient Refused. 9-Not Applicable-not attempted and the patient did not perform the activity before the current illness, exacerbation or injury. 10-Not Attempted due to Environmental Limitations-(lack of equipment, weather restraints, etc.). 88-Not Attempted due to Medical Conditions or Safety Concerns. Roll Left to Right (QC): 6 Sit to Lying (QC): 6 Sit to Stand (QC): 4 Chair/Yqr-gi-Ckxas Xfer(QC): 4 Car Transfer (QC): 4 Gait Training Does the Patient Walk?: Yes Distance: 300'; 150' Walk 10 feet (QC): 4 Walk 50 ft with 2 Turns(QC): 4 Walk 150 ft (QC): 4 Walking 10ft/uneven surface-QC: 4 Gait Persons Needed: 1 Gait Assistive Device: Cane Single Point Wheelchair Training Does the Pt Use a Wheelchair?: No Wheel 50 ft with 2 turns (QC): 9 Wheel 150 ft (QC): 9 Stair Training #of Steps: 12 1 Step (curb) (QC): 4 4 Steps (QC): 4 12 Steps (QC): 4 Balance Picking up an Object (QC): 4 ADL-Treatment Eating (QC): 6 (per report) Oral Hygiene (QC): 6 (Pt completed oral hygiene standing with cane at the sink.) Bathing Location: L Arm, R Arm, L Upper Leg, R Upper Leg, L Lower Leg (including foot), R Lower Leg (including foot), Chest, Abdomen, Buttocks, Perineal Area Shower/Bathe Self (QC): 5 (using grab bars, hand held shower, pt completed shower with set up seated on a bench. ) Upper Body Dressing (QC): 5 (required set up to complete UB dressing.) Lower Body Dressing (QC): 4 (Pt required CGA when standing with cane to hike pants over hips.) On/Off Footwear (QC): 4 (SBA while seated EOB.) Toileting Hygiene (QC): 7 (Declined using toilet.) Toilet Transfer (QC): 7 Assessment/Plan Assessment and Plan Assess & Plan/Chief Complaint Assessment: Severe bradycardia symptomatic s/p Cardiology w/u at [facility] and [place] multiple meds AMS/Encephalopathy now resolved Severe anemia s/p EGD/Colon and capsule endoscopy negative results iron 53 so will start Venofer 02/19/19 after placing midline HTN DM labile control HLP Chronic AF Severe COPD O2 dependent Volume overload hx Plan: Appreciate Guillermina Luna and Zach O2 Nebs Home meds on DC list from [facility] Increase insulin Midline Poor venous access Toprol added back per Dr [place] Wednesday (1) Debility (2) Encephalopathy (3) Diabetes mellitus, type 2 Status: Chronic (4) CKD (chronic kidney disease) Status: Chronic (5) GERD (gastroesophageal reflux disease) Status: Chronic (6) A-fib (7) HTN (hypertension) Status: Chronic (8) HLD (hyperlipidemia) Status: Chronic (9) COPD (chronic obstructive pulmonary disease) (10) RESPIRATORY FAILURE, UNSP, UNSP W HYPOXIA OR HYPERCAPNIA (11) Multilevel degenerative disc disease (12) Lumbar spondylosis (13) Bradycardia Status: Acute ZACK ESCOBEDO DO Feb 22, 2019 09:22 POS
[2019-02-22] MEDS: RT-ALBUTEROL/IPRATROPIUM 3 ML (DUONEB) VIAL INH SCH ×3 (09:48→19:37)
[2019-02-22] MEDS: RT-ADVAIR HFA 115/21 MCG PER PUFF IH SCH ×2 (09:48→19:37)
--- NOTE | 2019-02-22 10:25 | Occupational Ther Daily Note ---
OT Current Status-Daily Note Subjective No c/o of pain. Appearance Pt up in recliner. Pt agrees to therapy treatment. Mental Status/Objective Patient Orientation: Person, Place, Time, Situation ADL-Treatment Therapy Code Descriptions/Definitions Functional [place] Measure: 0=Not Assessed/NA 4=Minimal Assistance 1=Total Assistance 5=Supervision or Setup 2=Maximal Assistance 6=Modified [place] 3=Moderate Assistance 7=Complete IndependenceSCALE: Activities may be completed with or without assistive devices. 1-Mlnkjynfnx-pdkvijh completes the activity by him/herself with no assistance from a helper. 5-Set-up or Clean-up Assistance-helper sets up or cleans up; patient completes activity. [place] assists only prior to or following the activity. 4-Supervision or Touching Assistance-helper provides verbal cues and/or touching/steadying and/or contact guard assistance as patient completes activity. Assistance may be provided throughout the activity or intermittently. 3-Partial/Moderate Assistance-helper does LESS THAN HALF the effort. [place] lifts, holds or supports trunk or limbs, but provides less than half the effort. 2-Substantial/Maximal Assistance-helper does MORE THAN HALF the effort. [place] lifts or holds trunk or limbs and provides more than half the effort. 5-Rxxsnjabq-ruetol does ALL the effort. Patient does none of the effort to complete the activity. Or, the assistance of 2 or more helpers is required for the patient to complete the activity. If activity was not attempted, code reason: 7-Patient Refused. 9-Not Applicable-not attempted and the patient did not perform the activity before the current illness, exacerbation or injury. 10-Not Attempted due to Environmental Limitations-(lack of equipment, weather restraints, etc.). 88-Not Attempted due to Medical Conditions or Safety Concerns. Oral Hygiene (QC): 6 (Pt completed brushing teeth standing at the sink.) Bathing Location: L Arm, R Arm, L Upper Leg, R Upper Leg, L Lower Leg (including foot), R Lower Leg (including foot), Chest, Abdomen, Buttocks, Perineal Area Shower/Bathe Self (QC): 6 (using hand held shower and bench, pt completed shower independently.) Upper Body Dressing (QC): 6 (Pt completed UB dressing seated on a chair.) Lower Body Dressing (QC): 6 (Pt completed LB dressing independently seated on a chair.) Toileting Hygiene (QC): 6 (Pt cleansed self seated on toilet.) Toilet Transfer (QC): 6 (Using cane to ambulate, pt transferred independently .) Foot wear (6) Pt utilized compression sock aid to don socks. Pt completed the tasks seated. Other Treatment Pt ambulated independently with cane to the closet to vegetable picker clothes. Pt completed shower independently and required extended time to complete. Pt brushed hair seated at the sink. Pt then transferred to the toilet. Pt on the toilet at the end of session. Pt advised to push call button when done. Education OT Patient Education: Energy conservation, Modified ADL techniques, Progress toward Goal/Update tx plan, Purpose of tx/functional activities, Reviewed precautions, Rehab process, Use of adapted equipment Teaching Recipient: Patient Teaching Methods: Demonstration, Discussion Response to Teaching: Verbalize Understanding, Return Demonstration OT Improvement Analyst Goals Nursing Home Goals Time Frame: Mar 03, 2019 Eating (QC): 6 Oral Hygiene (QC): 6 Toileting Hygiene (QC): 6 Shower/Bathe Self (QC): 6 Upper Body Dressing (QC): 6 Lower Body Dressing (QC): 6 On/Off Footwear (QC): 6 Additional Goals: 1-Demonstrate ADL Tasks, 2-Verbalize Understanding, 3- ImproveStrength/Diane 1=Demonstrate adherence to instructed precautions during ADL tasks. 2=Patient will verbalize/demonstrate understanding of assistive devices/modifications for ADL. 3=Patient will improve strength/tolerance for activity to enable patient to perform ADL's. OT Education/Plan Problem List/Assessment Assessment: Decreased Activ Tolerance Discharge Recommendations Plan/Recommendations: Continue POC Therapy Discharge Recommendati: Home & Family Equpiment Recommendations-D/C: Sock Aide Treatment Plan/Plan of Care Treatment,Training & Education: Yes Patient would benefit from OT for education, treatment and training to promote independence in ADL's, mobility, safety and/or upper extremity function for ADL's. Plan of Care: ADL Retraining, Functional Mobility, Group Exercise/Act as Ind, UE Funct Exercise/Act Treatment Duration: Mar 03, 2019 Frequency: At least 5 of 7 days/Wk (IRF) Estimated Hrs Per Day: 1.5 hours per day Agreement: Yes Rehab Potential: Good Time/GCodes Start Time: 09:15 Stop Time: 10:15 Total Time Billed (hr/min): 60 Billed Treatment Time 1, ADL x4 (60 Min) DOV BADILLO OT Feb 22, 2019 10:25 POS
[2019-02-22] MEDS: HYDROcodone/APAP 5 MG/325 MG (LORTAB) TAB PO PRN (11:05)
--- NOTE | 2019-02-22 14:44 | Therapy Group Daily Note ---
Therapy Daily Group Note Patient Education Topic Exercises Exercises LE Seated Exercise, UE Exercise Session Ratio (pt:therapist): 3:1 Goal of Session: UE/LE Strengthing Goal Met for this Session: Yes Pt Benefit of Group: Contributions to Others, Increased Functional Strength, Improved Cognition, Recognition of Peers, Socialization Other/Notes Pt ambulated using FWW to Replaced by [facility] for OT/PT group. Group consisted of introductions (name, place born, [place] lawanda storey), socialization, UE/LE seated exercises and educational topic of 'Physical Activity as You Age. Pt introduced self appropriately and actively listened to peers. Pt's were able to acknowledge understanding of educational topic by giving personal exercises completed at home and ideas of where and objects to use during exercises. Pt was able to complete all seated exercises without difficulty and was able to follow directions to complete and sequence. After therapy, pt sitting in recliner with call light/phone in reach. All needs met in room. Start Time: 13:00 Stop Time: 14:15 Total Billed Treatment Time: 75 Total Billed Treatment 1-GRP BONG OZUNA Feb 22, 2019 14:44 POS
[2019-02-22 17:27] VITALS: BP 161/73
[2019-02-22] MEDS: FENOFIBRATE 134 MG (LOFIBRA) CAPSULE PO SCH (20:59)
[2019-02-22] MEDS: MAGNESIUM OXIDE (MAG-OX)400 MG TAB PO SCH (20:59)
[2019-02-22] MEDS: doxAzosin 1 MG (CARDURA) TAB PO SCH (20:59)
[2019-02-22] MEDS: PRIMIDONE 50 MG TAB (MYSOLINE) PO SCH (20:59)
[2019-02-23 05:48] VITALS: BP 122/68
[2019-02-23] MEDS: CATHETER FLUSH 10 ML SYR IV SCH ×3 (06:48→21:27)
[2019-02-23] MEDS: MULTIVIT W/MINERALS TAB (THERAGRAN M) PO SCH (06:48)
[2019-02-23] MEDS: inSUlin ASPART (NovoLOG) 1 UNIT/0.01 ML (CHARGE PER UNIT) SC SCH ×4 (06:48→21:27)
--- NOTE | 2019-02-23 08:03 | Cardiology Progress Note ---
Subjective Date Seen by Provider: Feb 23, 2019 Time Seen by Provider: 08:01 Subjective/Events-last exam Patient is sitting up in bed,denies any chest pain. C/o increased peripheral edema this morning. Review of Systems General: No Chills, No Night Sweats, No Fatigue, No Malaise, No Appetite, No Other HEENT: No Head Aches, No Visual Changes, No Eye Pain, No Ear Pain, No Dysphasia , No Sinus Congestion, No Post Nasal Drip, No Sore Throat, No Other Pulmonary: Dyspnea; No Cough, No Pleuritic Chest Pain, No Other Cardiovascular: No: Chest Pain, Palpitations, Orthopnea, Paroxysmal Noc. Dyspnea, Edema, Lt Headedness, Other Objective-Cardiology Exam Last Set of Vital Signs Vital Signs 02/23/19 16:10 Temp 36.6 Pulse 73 Resp 16 B/P (MAP) 116/66 (83) Pulse Ox 97 O2 Delivery Nasal Cannula O2 Flow Rate 2.00 Capillary Refill : I&O Intake and Output 02/23/19 00:00 Intake Total 3800 ml Output Total 1 ml Balance 3799 ml Intake Oral 3800 ml Output Stool Total 1 ml # Voids 5 General: Alert, Oriented X3, Cooperative HEENT: Atraumatic, PERRLA Neck: Supple, No JVD, No Thyromegaly Lungs: Clear to Auscultation, Normal Air Movement Heart: Regular Rate, Normal S1, Normal S2, No Murmurs Abdomen: Normal Bowel Sounds, Soft, No Tenderness, No Hepatosplenomegaly, No Masses Extremities: No Clubbing, No Cyanosis, No Edema, Normal Pulses, No Tenderness/Swelling Skin: No Rashes, No Breakdown, No Significant Lesion Neuro: Normal Gait, Normal Speech, Strength at 5/5 X4 Ext, Normal Tone, Sensation Intact Psych/Mental Status: Mental Status NL, Mood NL Results Lab Laboratory Tests Test 02/22/19 20:22 02/23/19 05:15 02/23/19 11:01 02/23/19 15:27 Range/Units Glucometer 239 H 200 H 152 H 287 H 70-110 MG/DL A/P-Cardiology Admission Diagnosis Syncope SSS/PAF CAD HTN Assessment/Plan Recent syncope,noted to have marked bradycardia at a time that she was on Multaq, Cardizem, and beta-eliseo. Loop interrogation done at [facility] revealed 2 3 second pauses on 02/05/19, unlikely to be the cause of her unresponsiveness.. Now off Multaq and Cardizem and beta-eliseo, no further syncope or bradycardia noted. SSS/PAF, h/o sinus node dysfunction with severe bradycardia in the past. S/p Linq implantation in 2018. Currently in sinus rhythm, maintained on Xarelto. Echo on 02/18/19: LVEF 60-65%, mild to mod conc LVH, mild enlargement of LA, mild MAC, mild to mod TR, RVSP 44 mmHg [id number] score of 4, yearly risk of stroke without oral anticoagulation is 4 percent. Maintained on Xarelto 15mg. Severe carotid arterial disease: 80-99% R ICA, 50-79% L ICA (as reported by [facility] on 02/10/19). Will need appt with CV surgeon. COPD, history of multiple episodes of exacerbation, continue to monitor. H/O Acute renal failure, improved, continue to monitor. H/o severe anemia of undetermined etiology, underwent EGD/colonoscopy in [facility] in 2018, reports no source of bleeding. I will try to obtain records for further review. Coronary artery disease, history of stent placement 2 to the LAD: Taxus 320 mm stent in the mid LAD, proximal to that is 312 mm Ion stent. Cardiac catheterization done March 05, 2017 revealed severe LAD stenosis beyond the previously known stent, treated with 3.08 mm ALPINE expanded to 3.5, balloon for in-stent restenosis also was done. Most recent cardiac catheterization done March 09, 2018 revealed patent stent with small vessel disease, no intervention required, consider repeating stress test as outpatient. Hypertension. Renal arterial duplex done July 2015: proximal right renal artery not evaluated, other segments of the left renal artery demonstrated no evidence of significant stenosis.Continue on current medications and continue to monitor. Hyperlipidemia, continue to monitor. Obesity with obesity-hypoventilation and obstructive sleep apnea treated with CPAP Diabetes mellitus II Chronic back pain, history of lumbar surgery in the past Generalized debility/weakness, continue PT/OT Patient was seen and evaluated with Kaela, examination performed, management plan was discussed, agree with the current scribed note, I made few changes to the note using Italic font Patient is sitting in bed, feeling well, heart rate is well-controlled On examination lungs were clear to auscultation, heart is regular Tolerating low-dose beta blockers, I will continue to monitor closely, I still think that her episode of unresponsiveness was due to COPD and respiratory failure more than sinus bradycardia Clinical Quality Measures DVT/VTE Risk/Contraindication: Risk Factor Score Per Nursin RFS Level Per Nursing on Admit: 4+=Very High KAELA CAPPS Feb 23, 2019 08:03 BOOM REED MD Feb 23, 2019 16:31 POS
--- NOTE | 2019-02-23 09:20 | Pulmonary Progress Note ---
Subjective Time Seen by a Provider: 09:20 Subjective/Events-last exam No complications noted. Sepsis Event Evaluation Height, Weight, BMI Height: 5'4.00" Weight: 219lbs. 1.0oz. 99.552733rs; 35.13 BMI Method:Stated Exam Exam Vital Signs Date Time Temp Pulse Resp B/P (MAP) Pulse Ox O2 Delivery O2 Flow Rate FiO2 02/23/19 05:48 37.9 84 18 122/68 (86) 94 Nasal Cannula 2.00 02/22/19 21:32 Nasal Cannula 2.00 02/22/19 19:38 98 Nasal Cannula 2.00 02/22/19 17:27 37.0 88 18 161/73 (102) 98 Nasal Cannula 2.00 02/22/19 12:50 91 I & O 02/23/19 07:00 Intake Total 4300 ml Output Total 1 ml Balance 4299 ml Height & Weight Height: 5'4.00" Weight: 219lbs. 1.0oz. 99.478935lj; 35.13 BMI Method:Stated General Appearance: No Apparent Distress, WD/WN, Chronically ill, Obese HEENT: PERRL/EOMI, Normal ENT Inspection, Pharynx Normal Neck: Full Range of Motion, Normal Inspection, Non Tender, Supple, Carotid Bruit Respiratory: Chest Non Tender, Lungs Clear, No Accessory Muscle Use, No Respiratory Distress, Decreased Breath Sounds Cardiovascular: Regular Rate, Rhythm, No Edema, No Gallop, No JVD, No Murmur, Normal Peripheral Pulses Extremity: Normal Capillary Refill, Normal Inspection, Normal Range of Motion, Non Tender, No Calf Tenderness, No Pedal Edema Neurologic/Psychiatric: Alert, Oriented x3, No Motor/Sensory Deficits, Normal Mood/Affect Skin: Normal Color, Warm/Dry Lymphatic: No Adenopathy Assessment/Plan Assessment/Plan S/p recent syncope COPD with hx of multiple AE -oxygen -SVNS, adviar -Will plan out pt PFT -CXR reviewed Bradycardia, SSS -Cardiology following Acute renal failure -Monitor CAD with hx of stent placement COPD, history of multiple episodes of exacerbation Obesity with JORGE LUIS and probable OHS -pt is on CPAP therapy DM ELIZABETH OH DO Feb 23, 2019 09:20 POS
--- NOTE | 2019-02-23 09:32 | PM&R Progress Note ---
Subjective HPI/CC On Admission Date Seen by Provider: Feb 23, 2019 Time Seen by Provider: 08:15 Subjective/Events-last exam Discharge tomorrow is planned. Mild edema so Lasix will be given as needed. Used her CPAP last night. Ready for discharge although fearful that she will decompensation. Checked meds and labs Reviewed therapy notes Conferred with director of family service center of Systems General: Fatigue Neurological: Weakness Objective Exam Vital Signs Vital Signs Date Time Temp Pulse Resp B/P (MAP) Pulse Ox O2 Delivery O2 Flow Rate FiO2 02/23/19 20:59 Nasal Cannula 2.00 02/23/19 18:11 97 02/23/19 16:10 36.6 73 16 116/66 (83) Capillary Refill : General Appearance: No Apparent Distress, WD/WN, Chronically ill, Obese HEENT: PERRL/EOMI, Normal ENT Inspection, Pharynx Normal Neck: Full Range of Motion, Normal Inspection, Non Tender, Supple, Carotid Bruit Respiratory: Chest Non Tender, Lungs Clear, No Accessory Muscle Use, No Respiratory Distress, Decreased Breath Sounds Cardiovascular: Regular Rate, Rhythm, No Edema, No Gallop, No JVD, No Murmur, Normal Peripheral Pulses Gastrointestinal: Normal Bowel Sounds, No Organomegaly, No Pulsatile Mass, Non Tender, Soft Back: Normal Inspection, No CVA Tenderness, No Vertebral Tenderness Extremity: Normal Capillary Refill, Normal Inspection, Normal Range of Motion, Non Tender, No Calf Tenderness, No Pedal Edema Neurologic/Psychiatric: Alert, Oriented x3, No Motor/Sensory Deficits, Normal Mood/Affect Skin: Normal Color, Warm/Dry Lymphatic: No Adenopathy Results/Procedures Lab Patient resulted labs reviewed. FIM Transfers Therapy Code Descriptions/Definitions Functional [place] Measure: 0=Not Assessed/NA 4=Minimal Assistance 1=Total Assistance 5=Supervision or Setup 2=Maximal Assistance 6=Modified [place] 3=Moderate Assistance 7=Complete IndependenceSCALE: Activities may be completed with or without assistive devices. 2-Ftfwmivxaz-quuwltj completes the activity by him/herself with no assistance from a helper. 5-Set-up or Clean-up Assistance-helper sets up or cleans up; patient completes activity. [place] assists only prior to or following the activity. 4-Supervision or Touching Assistance-helper provides verbal cues and/or touching/steadying and/or contact guard assistance as patient completes activity. Assistance may be provided throughout the activity or intermittently. 3-Partial/Moderate Assistance-helper does LESS THAN HALF the effort. [place] lifts, holds or supports trunk or limbs, but provides less than half the effort. 2-Substantial/Maximal Assistance-helper does MORE THAN HALF the effort. [place] lifts or holds trunk or limbs and provides more than half the effort. 6-Jbwtikjjq-spifnj does ALL the effort. Patient does none of the effort to complete the activity. Or, the assistance of 2 or more helpers is required for the patient to complete the activity. If activity was not attempted, code reason: 7-Patient Refused. 9-Not Applicable-not attempted and the patient did not perform the activity before the current illness, exacerbation or injury. 10-Not Attempted due to Environmental Limitations-(lack of equipment, weather restraints, etc.). 88-Not Attempted due to Medical Conditions or Safety Concerns. Roll Left to Right (QC): 6 Sit to Lying (QC): 6 Sit to Stand (QC): 4 Chair/Mtx-bi-Imybw Xfer(QC): 4 Car Transfer (QC): 4 Gait Training Does the Patient Walk?: Yes Distance: 300'; 150' Walk 10 feet (QC): 4 Walk 50 ft with 2 Turns(QC): 4 Walk 150 ft (QC): 4 Walking 10ft/uneven surface-QC: 4 Gait Persons Needed: 1 Gait Assistive Device: Cane Single Point Wheelchair Training Does the Pt Use a Wheelchair?: No Wheel 50 ft with 2 turns (QC): 9 Wheel 150 ft (QC): 9 Stair Training #of Steps: 12 1 Step (curb) (QC): 4 4 Steps (QC): 4 12 Steps (QC): 4 Balance Picking up an Object (QC): 4 ADL-Treatment Eating (QC): 6 (per report) Oral Hygiene (QC): 6 (Pt completed brushing teeth standing at the sink.) Bathing Location: L Arm, R Arm, L Upper Leg, R Upper Leg, L Lower Leg (including foot), R Lower Leg (including foot), Chest, Abdomen, Buttocks, Perineal Area Shower/Bathe Self (QC): 6 (using hand held shower and bench, pt completed shower independently.) Upper Body Dressing (QC): 6 (Pt completed UB dressing seated on a chair.) Lower Body Dressing (QC): 6 (Pt completed LB dressing independently seated on a chair.) On/Off Footwear (QC): 4 (SBA while seated EOB.) Toileting Hygiene (QC): 6 (Pt cleansed self seated on toilet.) Toilet Transfer (QC): 6 (Using cane to ambulate, pt transferred independently .) Assessment/Plan Assessment and Plan Assess & Plan/Chief Complaint Assessment: Severe bradycardia symptomatic s/p Cardiology w/u at [facility] and [place] multiple meds AMS/Encephalopathy now resolved Severe anemia s/p EGD/Colon and capsule endoscopy negative results iron 53 so will start Venofer 02/19/19 after placing midline HTN DM labile control HLP Chronic AF Severe COPD O2 dependent Volume overload hx Plan: Appreciate Guillermina Luna and Zach O2 Nebs Home meds on DC list from [facility] Venofer Increase insulin Midline Poor venous access Toprol added back per Dr West [place] Wednesday (1) Debility (2) Encephalopathy (3) Diabetes mellitus, type 2 Status: Chronic (4) CKD (chronic kidney disease) Status: Chronic (5) GERD (gastroesophageal reflux disease) Status: Chronic (6) A-fib (7) HTN (hypertension) Status: Chronic (8) HLD (hyperlipidemia) Status: Chronic (9) COPD (chronic obstructive pulmonary disease) (10) RESPIRATORY FAILURE, UNSP, UNSP W HYPOXIA OR HYPERCAPNIA (11) Multilevel degenerative disc disease (12) Lumbar spondylosis (13) Bradycardia Status: Acute ZACK ESCOBEDO DO Feb 23, 2019 09:32 POS
[2019-02-23] MEDS: amLODIPine 10 MG (NORVASC) TAB PO SCH (09:55)
[2019-02-23] MEDS: PANTOPRAZOLE 40 MG (PROTONIX) TAB PO SCH (09:55)
[2019-02-23] MEDS: GABAPENTIN 600 MG (NEURONTIN) TAB PO SCH ×3 (09:55→21:26)
[2019-02-23] MEDS: IRON SUCROSE 200 MG/10 ML (VENOFER) VIAL IV SCH (09:55)
[2019-02-23] MEDS: SENNA W/DOCUSATE (SENOKOT S) TABLET PO SCH ×2 (09:55→21:56)
[2019-02-23] MEDS: ISOSORBIDE MONONITRATE 60 MG (IMDUR) TAB PO SCH (09:56)
[2019-02-23] MEDS: OMEGA 3 (FISH OIL) 1000 MG CAP PO SCH (09:56)
[2019-02-23] MEDS: ASPIRIN E.C. 81 MG (ECOTRIN) TAB PO SCH (09:56)
[2019-02-23] MEDS: TORSEMIDE 20 MG (DEMADEX) TAB PO SCH (09:56)
[2019-02-23] MEDS: RIVAROXABAN 15 MG TABLET (XARELTO) PO SCH (09:56)
[2019-02-23] MEDS: SPIRONOLACTONE 25 MG (ALDACTONE) TAB PO SCH (09:56)
--- NOTE | 2019-02-23 09:56 | Physical Therapy Daily Note ---
PT Daily Note-Current Subjective pt in bed pre-tx asleep. Dr. West in room pre-tx to speak with pt about DC tomorrow. Pt denies any pain or SOB at this time. Appearance pt in recliner post-tx with call light, phone, table in reach with all needs met at this time. Mental Status Patient Orientation: Person, Place, Time, Situation Attachments: IV Transfers SCALE: Activities may be completed with or without assistive devices. 0-Gdxngcuiku-bdiasxo completes the activity by him/herself with no assistance from a helper. 5-Set-up or Clean-up Assistance-helper sets up or cleans up; patient completes activity. [place] assists only prior to or following the activity. 4-Supervision or Touching Assistance-helper provides verbal cues and/or touching /steadying and/or contact guard assistance as patient completes activity. Assistance may be provided throughout the activity or intermittently. 3-Partial/Moderate Assistance-helper does LESS THAN HALF the effort. [place] lifts, holds or supports trunk or limbs, but provides less than half the effort. 2-Substantial/Maximal Assistance-helper does MORE THAN HALF the effort. [place] lifts or holds trunk or limbs and provides more than half the effort. 4-Njwgmezob-omvdna does ALL the effort. Patient does none of the effort to complete the activity. Or, the assistance of 2 or more helpers is required for the patient to complete the activity. If activity was not attempted, code reason: 7-Patient Refused. 9-Not Applicable-not attempted and the patient did not perform the activity before the current illness, exacerbation or injury. 10-Not Attempted due to Environmental Limitations-(lack of equipment, weather restraints, etc.). 88-Not Attempted due to Medical Conditions or Safety Concerns. Roll Left & Right (QC): 6 Sit to Lying (QC): 6 Lying to Sitting/Side of Bed(Q: 6 Sit to Stand (QC): 6 Chair/Tpa-or-Jturu Xfer(QC): 6 Toilet Transfer (QC): 6 Car Transfer (QC): 6 pt is independent with all transfers and bed mobility Weight Bearing Right Lower Extremity: Right Full Weight Bearing Left Lower Extremity: Left Full Weight Bearing Gait Training Does the Patient Walk?: Yes Distance: 100',150' Walk 10 feet (QC): 6 Walk 50 ft with 2 Turns(QC): 6 Walk 150 ft (QC): 6 Walking 10ft/uneven surface-QC: 6 Gait Assistive Device: Cane Single Point (huricane) pt is indep with all ambulation and ambulates 150' including 50' with atleast 2 turns and 10' over an uneven surface. Wheelchair Training Does the Pt Use a Wheelchair?: No Stair Training Stair Training: Handrails/: uses cane #of Steps: 4 1 Step (curb) (QC): 4 (CGA) 4 Steps (QC): 4 (CGA) 12 Steps (QC): 9 Stairs: Pattern: Step to pt had episode of LOB coming down off of curb step where she caught her heel stepping down but was able to regain her balance using the cane. Pt is CGA for up to 4 steps but states she doesn't ever do more than 2 or 3. Balance Picking up an Object (QC): 6 Exercises Supine Ex: Bridging, Ankle pumps, Straight leg raise, Hip abd/add Supine Reps: 45 (15reps 3 sets) Seated Therapy Exercises: Long arc quads, Hamstring Curls (red tbd) Seated Reps: 30 (15reps 2 sets) Standing: Heel/toe raises, Marching, Weight shifts (standing on aerex. standing with 1 foot flat and 1 toe touch 5sec each. 10reps. 2 sets) Standing Reps: 30 (15reps 2 sets) Treatments pt performed transfer training, bed mobility training, stair training, functional LE strengthening, and education. Assessment Current Status: Good Progress pt has 1 minor LOB while coming off curb step but is able to regain balance with use of the huricane. Pt has improved activity victoriano with decreased SOB since admit to ARU. pt is also indep in moving around room while using cane including opening doors, moving her tray table, and maintaining her O2 line through the session. PT Short Term Goals Short Term Goals Time Frame: Feb 24, 2019 Sit to stand: 6 Toilet transfer: 6 PT Penitentiary Goals Penitentiary Goals PT Oncology Physician Goals Time Frame: Mar 03, 2019 Roll Left & Right (QC): 6 Sit to Lying (QC): 6 Lying-Sitting on Side/Bed(QC): 6 Sit to Stand (QC): 6 Chair/Wnt-yj-Mfwcz Xfer(QC): 6 Toilet Transfer (QC): 6 Car Transfer (QC): 6 Does the Patient Walk: Yes Walk 10 feet (QC): 6 Walk 50ft with 2 Turns (QC): 6 Walk 150 ft (QC): 6 Walking 10ft on Uneven Surface: 6 1 Step (curb) (QC): 6 4 Steps (QC): 6 12 Steps (QC): 6 Picking up an Object (QC): 6 Does the Pt use WC or Scooter?: No Type: N/A Type: N/A PT Plan Problem List Problem List: Activity Tolerance, Functional Strength, Safety, Balance, Gait, Transfer, ROM Treatment/Plan Treatment Plan: Continue Plan of Care Treatment Plan: Education, Functional Activity Diane, Functional Strength, Group Therapy, Gait, Safety, Therapeutic Exercise, Transfers Treatment Duration: Mar 03, 2019 Frequency: Modified Program (IRF) (03/10) Estimated Hrs Per Day: 1.5 hours per day Patient and/or Family Agrees t: Yes Safety Risks/Education Patient Education: Gait Training, Transfer Techniques, Steps, Correct Positioning, Safety Issues Teaching Recipient: Patient Teaching Methods: Demonstration, Discussion Response to Teaching: Return Demonstration, Reinforcement Needed Time/GCodes Time In: 0900 Time Out: 1000 Total Billed Treatment Time: 60 Total Billed Treatment 1 visit EX 30' GT 15' FA 15' FLORINDA SMART PT Feb 23, 2019 09:56 POS
[2019-02-23] MEDS: POLYETHYLENE GLYCOL 17 GM (MIRALAX) PACK PO SCH ×2 (09:57→21:55)
--- NOTE | 2019-02-23 13:30 | Occupational Ther Daily Note ---
OT Current Status-Daily Note Subjective No c/o of pain. Pt reports that she is worried about going home tomorrow stated "anything can happen". Appearance Pt seated in recliner when OT entered the room. Pt agrees to therapy treatment. Mental Status/Objective Patient Orientation: Person, Place, Time, Situation Attachments: IV ADL-Treatment Therapy Code Descriptions/Definitions Functional [place] Measure: 0=Not Assessed/NA 4=Minimal Assistance 1=Total Assistance 5=Supervision or Setup 2=Maximal Assistance 6=Modified [place] 3=Moderate Assistance 7=Complete IndependenceSCALE: Activities may be completed with or without assistive devices. 5-Mkabiqddaj-ivjcqqt completes the activity by him/herself with no assistance from a helper. 5-Set-up or Clean-up Assistance-helper sets up or cleans up; patient completes activity. [place] assists only prior to or following the activity. 4-Supervision or Touching Assistance-helper provides verbal cues and/or touching/steadying and/or contact guard assistance as patient completes activity. Assistance may be provided throughout the activity or intermittently. 3-Partial/Moderate Assistance-helper does LESS THAN HALF the effort. [place] lifts, holds or supports trunk or limbs, but provides less than half the effort. 2-Substantial/Maximal Assistance-helper does MORE THAN HALF the effort. [place] lifts or holds trunk or limbs and provides more than half the effort. 8-Tntmpqifk-joygjf does ALL the effort. Patient does none of the effort to complete the activity. Or, the assistance of 2 or more helpers is required for the patient to complete the activity. If activity was not attempted, code reason: 7-Patient Refused. 9-Not Applicable-not attempted and the patient did not perform the activity before the current illness, exacerbation or injury. 10-Not Attempted due to Environmental Limitations-(lack of equipment, weather restraints, etc.). 88-Not Attempted due to Medical Conditions or Safety Concerns. Eating (QC): 6 (Pt completed meals independently seated at the chair.) Oral Hygiene (QC): 6 (Pt completed oral hygiene standing at the sink with cane.) Bathing Location: L Arm, R Arm, L Upper Leg, R Upper Leg, L Lower Leg (including foot), R Lower Leg (including foot), Chest, Abdomen, Buttocks, Perineal Area Shower/Bathe Self (QC): 6 (Using hand held shower and bench, pt completed shower independently.) Upper Body Dressing (QC): 6 (Pt completed UB dressing independently seated on the chair.) Lower Body Dressing (QC): 6 (Pt completed LB dressing independently.) Toileting Hygiene (QC): 6 (Pt cleansed self while seated on the toilet.) Toilet Transfer (QC): 6 (Pt transferred self to the toilet.) Footwear (6) Pt utilized sock aid to don compression socks bilateral while seated on a chair. Other Treatment Pt ambulated with cane to the closet independently and picked up her clothes. Pt required extended time to complete shower/dressing. Pt ambulated to therapy gym with cane independently. Pt participated in armbike exercise 10 minutes with min resistance to increase activity tolerance for functional tasks. Pt ambulated with cane back to her room and picked up basket of dirty laundry. Pt ambulated with cane independently to the laundry room. Pt loaded laundry to the washer and started it. Pt ambulated with cane independently to her room. Pt seated in recliner at the end of session. Call light/phone in reach. All needs met in room. Education OT Patient Education: Exercise program, Progress toward Goal/Update tx plan, Purpose of tx/functional activities, Reviewed precautions, Rehab process, Use of adapted equipment Teaching Recipient: Patient Teaching Methods: Demonstration, Discussion Response to Teaching: Verbalize Understanding, Return Demonstration OT Cutter And Presser Goals Skilled Nursing Goals Time Frame: Mar 03, 2019 Eating (QC): 6 Oral Hygiene (QC): 6 Toileting Hygiene (QC): 6 Shower/Bathe Self (QC): 6 Upper Body Dressing (QC): 6 Lower Body Dressing (QC): 6 On/Off Footwear (QC): 6 Additional Goals: 1-Demonstrate ADL Tasks, 2-Verbalize Understanding, 3- ImproveStrength/Diane 1=Demonstrate adherence to instructed precautions during ADL tasks. 2=Patient will verbalize/demonstrate understanding of assistive devices/modifications for ADL. 3=Patient will improve strength/tolerance for activity to enable patient to perform ADL's. OT Education/Plan Problem List/Assessment Assessment: Decreased Activ Tolerance Discharge Recommendations Plan/Recommendations: Continue POC Therapy Discharge Recommendati: Home & Family Treatment Plan/Plan of Care Treatment,Training & Education: Yes Patient would benefit from OT for education, treatment and training to promote independence in ADL's, mobility, safety and/or upper extremity function for ADL' s. Plan of Care: ADL Retraining, Functional Mobility, Group Exercise/Act as Ind, UE Funct Exercise/Act Treatment Duration: Mar 03, 2019 Frequency: At least 5 of 7 days/Wk (IRF) Estimated Hrs Per Day: 1.5 hours per day Agreement: Yes Rehab Potential: Good Time/GCodes Start Time: 10:00 Stop Time: 11:30 Total Time Billed (hr/min): 90 Billed Treatment Time 1, ADL x4 (60 Min) EX x1 (15 Min) FA x1 (15 Min) DOV BADILLO OT Feb 23, 2019 13:30 POS
--- NOTE | 2019-02-23 14:12 | NUR ---
Reviewed weekly rehab team conference summary with patient, she is in agreement to targeted discharge for tomorrow, 02/24/19. HHC: Established with [facility], will process resume orders for RN and PT. DME: Patient ordered LUIZ hose heidi and already has this at home. Established with nebulizer and home CPAP, home O2. Patient indicates spouse already has portable in truck for her transport tomorrow. Patient is established with cardiology Dr. Serrano and Dr. Luna this visit. There were no scheduled followups with Research staff in discharge documentation, recommendation was for 2-4 weeks with gastroenterology. Patient to determine whether she wishes to continue long distance healthcare or establish more local, information provided with discharge packet. Referral completed with Pastoral Care for support regarding patient's ongoing fear of her unresponsive episode repeating. [employer] listened, comforted, discussed not allowing the fear to overcome her thoughts and interfere with present lamar. Finalize discharge activities tomorrow.
--- NOTE | 2019-02-23 15:10 | Physical Therapy Daily Note ---
PT Daily Note-Current Subjective Pt agreeable to PT session, states she is excited to go home tomorrow but concerned she has been having increased tiredness and dizziness last couple of days, states she has not told nursing about these sx's. Notified nurse of pt's report of new sx's. Pain Numeric Pain Scale: 0-No Pain Comment: R hip pain only with walking 4/10, no pain at rest Appearance Pt sitting up in recliner before and after session, call light, phone and bedside table within reach Mental Status Patient Orientation: Person, Place, Time, Eyes Open, Situation Attachments: Saline Lock, Oxygen (2L) Transfers SCALE: Activities may be completed with or without assistive devices. 4-Einhuiinqg-cdugkqu completes the activity by him/herself with no assistance from a helper. 5-Set-up or Clean-up Assistance-helper sets up or cleans up; patient completes activity. Bartlett assists only prior to or following the activity. 4-Supervision or Touching Assistance-helper provides verbal cues and/or touching/steadying and/or contact guard assistance as patient completes activity. Assistance may be provided throughout the activity or intermittently. 3-Partial/Moderate Assistance-helper does LESS THAN HALF the effort. Bartlett lifts, holds or supports trunk or limbs, but provides less than half the effort. 2-Substantial/Maximal Assistance-helper does MORE THAN HALF the effort. Bartlett lifts or holds trunk or limbs and provides more than half the effort. 5-Fngioqpnr-iqhdqb does ALL the effort. Patient does none of the effort to complete the activity. Or, the assistance of 2 or more helpers is required for the patient to complete the activity. If activity was not attempted, code reason: 7-Patient Refused. 9-Not Applicable-not attempted and the patient did not perform the activity before the current illness, exacerbation or injury. 10-Not Attempted due to Environmental Limitations-(lack of equipment, weather restraints, etc.). 88-Not Attempted due to Medical Conditions or Safety Concerns. Weight Bearing Right Lower Extremity: Right Full Weight Bearing Left Lower Extremity: Left Full Weight Bearing Gait Training Does the Patient Walk?: Yes Distance: 300 x2 Walk 10 feet (QC): 6 Walk 50 ft with 2 Turns(QC): 6 Walk 150 ft (QC): 6 Gait Assistive Device: FWW No LOB or unsteadiness. Pt demonstrating good safety awareness around O2 tubing Exercises NuStep Minutes: 15 NuStep Workload: 6 (seat and arms 7, x1 rest break) Treatments education, safety, transfers, gait, balance, strength, activity tolerance, functional mobility Assessment Current Status: Good Progress PT Short Term Goals Short Term Goals Time Frame: Feb 24, 2019 Sit to stand: 6 Toilet transfer: 6 PT Retirement Goals Clinical Appeals Rn Goals PT Clinical Appeals Rn Goals Time Frame: Mar 03, 2019 Roll Left & Right (QC): 6 Sit to Lying (QC): 6 Lying-Sitting on Side/Bed(QC): 6 Sit to Stand (QC): 6 Chair/Bpu-yz-Jvfrd Xfer(QC): 6 Toilet Transfer (QC): 6 Car Transfer (QC): 6 Does the Patient Walk: Yes Walk 10 feet (QC): 6 Walk 50ft with 2 Turns (QC): 6 Walk 150 ft (QC): 6 Walking 10ft on Uneven Surface: 6 1 Step (curb) (QC): 6 4 Steps (QC): 6 12 Steps (QC): 6 Picking up an Object (QC): 6 Does the Pt use WC or Scooter?: No Type: N/A Type: N/A PT Plan Treatment/Plan Treatment Plan: Continue Plan of Care Treatment Plan: Education, Functional Activity Diane, Functional Strength, Group Therapy, Gait, Safety, Therapeutic Exercise, Transfers Treatment Duration: Mar 03, 2019 Frequency: Modified Program (IRF) (03/10) Estimated Hrs Per Day: 1.5 hours per day Patient and/or Family Agrees t: Yes Safety Risks/Education Patient Education: Gait Training, Transfer Techniques, Safety Issues Teaching Recipient: Patient Teaching Methods: Discussion Response to Teaching: Verbalize Understanding Time/GCodes Time In: 1327 Time Out: 1358 Total Billed Treatment Time: 31 Total Billed Treatment 1 visit, GT x16 min, EX x15 min CHACORTA ISBELL PTA Feb 23, 2019 15:10 POS
[2019-02-23] MEDS: RT-ALBUTEROL/IPRATROPIUM 3 ML (DUONEB) VIAL INH SCH ×2 (15:17→18:11)
--- NOTE | 2019-02-23 15:56 | NUR ---
Pastoral care visit, pt shared her fears and concerns regarding going home as well as her recent health struggles. I offered active listening and encouragement and then had prayer with the pt.
[2019-02-23 16:10] VITALS: BP 116/66
[2019-02-23] MEDS: RT-ADVAIR HFA 115/21 MCG PER PUFF IH SCH ×2 (18:04→18:11)
[2019-02-23] MEDS: FENOFIBRATE 134 MG (LOFIBRA) CAPSULE PO SCH (21:26)
[2019-02-23] MEDS: PRIMIDONE 50 MG TAB (MYSOLINE) PO SCH (21:26)
[2019-02-23] MEDS: MAGNESIUM OXIDE (MAG-OX)400 MG TAB PO SCH (21:26)
[2019-02-23] MEDS: doxAzosin 1 MG (CARDURA) TAB PO SCH (21:27)
[2019-02-23] MEDS ORDERED: MTP25TSR PO (22:28)
[2019-02-23] MEDS ORDERED: SPIR25TA5 PO (22:28)
[2019-02-23] MEDS ORDERED: FLUT12AE4 IH (22:28)
[2019-02-23] MEDS ORDERED: DOXA1TAB2 PO (22:28)
--- NOTE | 2019-02-23 22:29 | D/C HH Face to Face Order ---
D/C Face to Face Orders Reconcile Patient Problems Problems Reviewed?: Yes Instructions for Patient Via [facility], Patient Instructions/FollowUp: [facility] 1 week Physician to follow Patient: [facility] Discharge Diet for Home: ADA Diet, Cardiac Diet Patient Problems: s/p resp failure and bradycardia Goals for Patient: Return to independence Patient Data-Allergies,Ht & Wt Patient Allergies: Coded Allergies: morphine (Verified Adverse Reaction, Severe, hallucination, 07/12/18) Height (Feet): 5 Height (Inches): 4.00 Weight (Pounds): 219 Weight (Ounces): 1.0 Home Health Need/Face to Face Date of Face to Face: Feb 23, 2019 Clinical Findings: Generalized weakness and fatigue, Shortness of breath, Unsteady gait I have seen Pt cfiu-lq-[id number]: Yes Discharged To: Home Diagnosis/Conditions: s/p resp failure and bradycardia Patient is Homebound due to: Bhaskar fall risk due to instabilty, Muscle weakness Homebound Status Due to the above stated illness, injury or surgical procedure (medical condition or diagnosis) and associated clinical findings, the patient is homebound because of his/her inability to leave home except with aid of a supportive device and/or person AND leaving the home requires a considerable and taxing effort or is medically contraindicated. Pt req the following assistanc: Walker Home Health Nursing Orders Home Health Services Order: Nursing Services, Physical Therapy-Evaluate & Treat Certify Stmt I certify that this patient is under my care and that I, a nurse practitioner or a physician; a human resources benefits assistant working with me, had a face to face encounter that -m eets the physician face to face encounter requirements with this patient as dated. ZACK ESCOBEDO DO Feb 23, 2019 22:29 POS
[2019-02-24 05:49] VITALS: BP 158/79
[2019-02-24] MEDS: MULTIVIT W/MINERALS TAB (THERAGRAN M) PO SCH (05:51)
[2019-02-24] MEDS: inSUlin ASPART (NovoLOG) 1 UNIT/0.01 ML (CHARGE PER UNIT) SC SCH ×2 (05:51→13:43)
[2019-02-24] MEDS: CATHETER FLUSH 10 ML SYR IV SCH (05:51)
--- NOTE | 2019-02-24 07:20 | Pulmonary Progress Note ---
Subjective Time Seen by a Provider: 07:19 Subjective/Events-last exam Pt is doing better. Sepsis Event Evaluation Height, Weight, BMI Height: 5'4.00" Weight: 219lbs. 1.0oz. 99.907125be; 35.13 BMI Method:Stated Exam Exam Vital Signs Date Time Temp Pulse Resp B/P (MAP) Pulse Ox O2 Delivery O2 Flow Rate FiO2 02/24/19 05:49 36.4 89 18 158/79 (105) 97 Nasal Cannula 2.00 02/23/19 20:59 Nasal Cannula 2.00 02/23/19 18:11 97 Nasal Cannula 2.00 02/23/19 16:10 36.6 73 16 116/66 (83) 97 Nasal Cannula 2.00 02/23/19 15:17 96 Nasal Cannula 2.00 02/23/19 08:32 Nasal Cannula 2.00 I & O 02/24/19 07:00 Intake Total 2300 ml Balance 2300 ml Height & Weight Height: 5'4.00" Weight: 219lbs. 1.0oz. 99.297981hx; 35.13 BMI Method:Stated General Appearance: No Apparent Distress, WD/WN, Chronically ill, Obese HEENT: PERRL/EOMI, Normal ENT Inspection, Pharynx Normal Neck: Full Range of Motion, Normal Inspection, Non Tender, Supple, Carotid Bruit Respiratory: Chest Non Tender, Lungs Clear, No Accessory Muscle Use, No Respiratory Distress, Decreased Breath Sounds Cardiovascular: Regular Rate, Rhythm, No Edema, No Gallop, No JVD, No Murmur, Normal Peripheral Pulses Extremity: Normal Capillary Refill, Normal Inspection, Normal Range of Motion, Non Tender, No Calf Tenderness, No Pedal Edema Neurologic/Psychiatric: Alert, Oriented x3, No Motor/Sensory Deficits, Normal Mood/Affect Skin: Normal Color, Warm/Dry Lymphatic: No Adenopathy Assessment/Plan Assessment/Plan COPD with hx of multiple AE -oxygen -SVNS, adviar -Will plan out pt PFT -CXR reviewed Bradycardia, SSS -Cardiology following Acute renal failure -Monitor CAD with hx of stent placement COPD, history of multiple episodes of exacerbation Obesity with JORGE LUIS and probable OHS -pt is on CPAP therapy DM II ELIZABETH FRANCISCO DO Feb 24, 2019 07:20 POS
[2019-02-24] MEDS: RT-ADVAIR HFA 115/21 MCG PER PUFF IH SCH (08:01)
[2019-02-24] MEDS: RT-ALBUTEROL/IPRATROPIUM 3 ML (DUONEB) VIAL INH SCH (08:01)
[2019-02-24] MEDS: ASPIRIN E.C. 81 MG (ECOTRIN) TAB PO SCH (08:53)
[2019-02-24] MEDS: TORSEMIDE 20 MG (DEMADEX) TAB PO SCH (08:53)
[2019-02-24] MEDS: ISOSORBIDE MONONITRATE 60 MG (IMDUR) TAB PO SCH (08:53)
[2019-02-24] MEDS: OMEGA 3 (FISH OIL) 1000 MG CAP PO SCH (08:54)
[2019-02-24] MEDS: GABAPENTIN 600 MG (NEURONTIN) TAB PO SCH ×2 (08:54→13:46)
[2019-02-24] MEDS: RIVAROXABAN 15 MG TABLET (XARELTO) PO SCH (08:54)
[2019-02-24] MEDS: SPIRONOLACTONE 25 MG (ALDACTONE) TAB PO SCH (08:54)
[2019-02-24] MEDS: amLODIPine 10 MG (NORVASC) TAB PO SCH (08:54)
[2019-02-24] MEDS: PANTOPRAZOLE 40 MG (PROTONIX) TAB PO SCH (08:54)
[2019-02-24] MEDS: POLYETHYLENE GLYCOL 17 GM (MIRALAX) PACK PO SCH (08:55)
[2019-02-24] MEDS: SENNA W/DOCUSATE (SENOKOT S) TABLET PO SCH (08:55)
--- NOTE | 2019-02-24 09:10 | Therapy Team Discharge Summary ---
Therapy Discharge Summary Discharge Recommendations Date of Discharge Physical Therapy Patient came to rehab with encephalopathy and resp. failure. Upon evaluation patient performed bed mobility with independence, sit <-> stand CGA, transfers CGA, car transfer CGA, ambulated 150' with a rolling walker with CGA (including 50' with at least 2 turns of 90 degrees and 10' over an uneven surface), can merchandise pickup/receiving associate an object from the floor with CGA, and can go up and down 12 steps using 2 handrails with CGA. Patient has been performing bed mobility and transfer training, balance and endurance training, functional strengthening, stair training, gait training, and education. Patient has made good progress and has met all of her penitentiary goals except for stairs. Now, patient performs bed mobility and transfers with independence, car transfer with independence, ambulates 150' with a rolling walker with independence (including 50' with at least 2 turns of 90 degrees and 10' over an uneven surface), can merchandise pickup/receiving associate an object from the floor with independence, but can only go up and down 4 steps using a cane with CGA. Patient is discharging from this facility today and will be discharged from PT at this time. Occupational Therapy Decreased Activ Tolerance PT Penitentiary Goals Penitentiary Goals PT [facility] Goals Time Frame: Mar 03, 2019 Roll Left to Right (QC): 6 Sit to Lying (QC): 6 Lying-Sitting on Side/Bed(QC): 6 Sit to Stand (QC): 6 Chair/Kho-ex-Aiewy Xfer(QC): 6 Car Transfer (QC): 6 Does the Patient Walk: Yes Walk 10 feet (QC): 6 Walk 10ft-Uneven Surface(QC): 6 Walk 50ft with 2 Turns (QC): 6 Walk 150 ft (QC): 6 Does the Pt use WC or Scooter?: No 1 Step (curb) (QC): 6 4 Steps (QC): 6 12 Steps (QC): 6 Picking up an Object (QC): 6 OT [facility] Goals [facility] Goals Time Frame: Mar 03, 2019 Eating (QC): 6 Oral Hygiene (QC): 6 Shower/Bathe Self (QC): 6 Upper Body Dressing (QC): 6 Lower Body Dressing (QC): 6 On/Off Footwear (QC): 6 Toileting Hygiene (QC): 6 Toilet/Commode Transfer (QC): 6 Additional Goals: 1-Demonstrate ADL Tasks, 2-Verbalize Understanding, 3-ImproveStrength/Diane 1=Demonstrate adherence to instructed precautions during ADL tasks. 2=Patient will verbalize/demonstrate understanding of assistive devices/modifications for ADL. 3=Patient will improve strength/tolerance for activity to enable patient to perform ADL's. FLORINDA SMART PT Feb 24, 2019 09:10 POS
[2019-02-24] MEDS: HYDROcodone/APAP 5 MG/325 MG (LORTAB) TAB PO PRN (10:38)
--- NOTE | 2019-02-24 11:16 | Cardiology Progress Note ---
Subjective Date Seen by Provider: Feb 24, 2019 Time Seen by Provider: 11:15 Subjective/Events-last exam patient was seen and evaluated, getting ready to go home, reporting improvement, still anxious about going home Review of Systems General: No Chills, No Night Sweats, No Fatigue, No Malaise, No Appetite, No Other HEENT: No Head Aches, No Visual Changes, No Eye Pain, No Ear Pain, No Dysphasia, No Sinus Congestion, No Post Nasal Drip, No Sore Throat, No Other Pulmonary: Dyspnea; No Cough, No Pleuritic Chest Pain, No Other Cardiovascular: No: Chest Pain, Palpitations, Orthopnea, Paroxysmal Noc. Dyspnea, Edema, Lt Headedness, Other Objective-Cardiology Exam Last Set of Vital Signs Vital Signs 02/24/19 02/24/19 05:49 08:02 Temp 36.4 Pulse 89 Resp 18 B/P (MAP) 158/79 (105) Pulse Ox 98 O2 Delivery Nasal Cannula O2 Flow Rate 2.00 Capillary Refill : I&O Intake and Output 02/24/19 00:00 Intake Total 2700 ml Balance 2700 ml Intake Oral 2700 ml # Voids 8 # Bowel Movements 1 General: Alert, Oriented X3, Cooperative HEENT: Atraumatic, PERRLA Neck: Supple, No JVD, No Thyromegaly Lungs: Clear to Auscultation, Normal Air Movement Heart: Regular Rate, Normal S1, Normal S2, No Murmurs Abdomen: Normal Bowel Sounds, Soft, No Tenderness, No Hepatosplenomegaly, No Masses Extremities: No Clubbing, No Cyanosis, No Edema, Normal Pulses, No Tenderness/Swelling Skin: No Rashes, No Breakdown, No Significant Lesion Neuro: Normal Gait, Normal Speech, Strength at 5/5 X4 Ext, Normal Tone, Sensation Intact Psych/Mental Status: Mental Status NL, Mood NL Results Lab Laboratory Tests Test 02/23/19 15:27 02/23/19 20:29 02/24/19 05:15 02/24/19 10:54 Range/Units Glucometer 287 H 223 H 233 H 192 H 70-110 MG/DL A/P-Cardiology Admission Diagnosis Syncope SSS/PAF CAD HTN Assessment/Plan Recent syncope,noted to have marked bradycardia at a time that she was on Multaq, Cardizem, and beta-eliseo. Loop interrogation done at [facility] revealed 2 3 second pauses on 02/05/19, unlikely to be the cause of her unresponsiveness.. Now off Multaq and Cardizem and beta-eliseo, no further syncope or bradycardia noted. follow-up as an outpatient SSS/PAF, h/o sinus node dysfunction with severe bradycardia in the past. S/p Linq implantation in 2018. Currently in sinus rhythm, maintained on Xarelto. Echo on 02/18/19: LVEF 60-65%, mild to mod conc LVH, mild enlargement of LA, mild MAC, mild to mod TR, RVSP 44 mmHg [id number] score of 4, yearly risk of stroke without oral anticoagulation is 4 percent. Maintained on Xarelto 15mg. Severe carotid arterial disease: 80-99% R ICA, 50-79% L ICA (as reported by [facility] on 02/10/19). Will need appt with CV surgeon. COPD, history of multiple episodes of exacerbation, continue to monitor. H/O Acute renal failure, improved, continue to monitor. H/o severe anemia of undetermined etiology, underwent EGD/colonoscopy in [facility] in 2018, reports no source of bleeding. I will try to obtain records for further review. Coronary artery disease, history of stent placement 2 to the LAD: Taxus 320 mm stent in the mid LAD, proximal to that is 312 mm Ion stent. Cardiac catheterization done March 05, 2017 revealed severe LAD stenosis beyond the previously known stent, treated with 3.08 mm ALPINE expanded to 3.5, balloon for in-stent restenosis also was done. Most recent cardiac catheterization done March 09, 2018 revealed patent stent with small vessel disease, no interv ention required, consider repeating stress test as outpatient. Hypertension. Renal arterial duplex done July 2015: proximal right renal artery not evaluated, other segments of the left renal artery demonstrated no evidence of significant stenosis.Continue on current medications and continue to monitor. Hyperlipidemia, continue to monitor. Obesity with obesity-hypoventilation and obstructive sleep apnea treated with CPAP Diabetes mellitus II Chronic back pain, history of lumbar surgery in the past Generalized debility/weakness, improving, going home today. Clinical Quality Measures DVT/VTE Risk/Contraindication: Risk Factor Score Per Nursin RFS Level Per Nursing on Admit: 4+=Very High BOOM MILLER MD Feb 24, 2019 11:16 POS
--- NOTE | 2019-02-24 11:37 | NUR ---
Patient discharged home with post hospital care planning as completed yesterday with patient. HHC: Resumed with established agency [facility] at patient's request for RN, PT. Services planned to begin 02/28/19. DME: Spouse bringing portable O2. Patient has self arranged her transport via her spouse. Discharge planning complete unless situation changes to warrant alternate interventions. RN aware of discharge.
--- NOTE | 2019-02-24 12:54 | Discharge Summary ---
Diagnosis/Chief Complaint Date of Admission Feb 17, 2019 at 14:50 Date of Discharge Discharge Date: Feb 24, 2019 Discharge Diagnosis Assessment: Severe bradycardia symptomatic s/p Cardiology w/u at [facility] and [place] multiple meds AMS/Encephalopathy now resolved Severe anemia s/p EGD/Colon and capsule endoscopy negative results iron 53 so will start Venofer 02/19/19 after placing midline HTN DM labile control HLP Chronic AF Severe COPD O2 dependent Volume overload hx Plan: Appreciate Guillermina Luna and Zach O2 Nebs Home meds on DC list from [facility] Venofer Increase insulin Midline Poor venous access Toprol added back per Dr Jenna MESSINA Wednesday (1) Debility (2) Encephalopathy (3) Diabetes mellitus, type 2 Status: Chronic (4) CKD (chronic kidney disease) Status: Chronic (5) GERD (gastroesophageal reflux disease) Status: Chronic (6) A-fib (7) HTN (hypertension) Status: Chronic (8) HLD (hyperlipidemia) Status: Chronic (9) COPD (chronic obstructive pulmonary disease) (10) RESPIRATORY FAILURE, UNSP, UNSP W HYPOXIA OR HYPERCAPNIA (11) Multilevel degenerative disc disease (12) Lumbar spondylosis (13) Bradycardia Status: Acute Discharge Summary Discharge Physical Examination Allergies: Coded Allergies: morphine (Verified Adverse Reaction, Severe, hallucination, 07/12/18) Vitals & I&Os Vital Signs Date Time Temp Pulse Resp B/P (MAP) Pulse Ox O2 Delivery O2 Flow Rate FiO2 02/24/19 14:00 02/24/19 08:02 98 Nasal Cannula 2.00 02/24/19 05:49 36.4 89 18 General Appearance: Alert, Oriented X3, Cooperative Respiratory: Clear to Auscultation Cardiovascular: Regular Rate Neuro: Normal Gait, Normal Speech, Strength at 5/5 X4 Ext Psych/Mental Status: Mental Status NL Hospital Course Was the Problem List Reviewed?: Yes Hospital Course: Pt had an uncomplicated hospital course for 8 days in inpatient rehab after she was transferred from [facility] for severe debility. She had respiratory failure, bradycardia, improved with multiple medication discontinuations. Pt overall did very well, participated in therapy, did not require lengthy stay because it appeared that she hadn't lost alot of her strength she regained two weeks ago before she left. Overall pt remained on O2, home health was set up, bowel function returned back to normal, she did receive iron infusions 3 doses and overall was ready for DC. Labs (last 24 hrs) Laboratory Tests 02/17/19 15:59: Glucometer 108 02/17/19 20:35: Glucometer 303H 02/18/19 05:09: Glucometer 183H 02/18/19 05:29: White Blood Count 5.4, Red Blood Count 3.33L, Hemoglobin 8.8L, Hematocrit 29L, Mean Corpuscular Volume 88, Mean Corpuscular Hemoglobin 26, Mean Corpuscular Hemoglobin Concent 30L, Red Cell Distribution Width 16.5H, Platelet Count 170, Mean Platelet Volume 10.5H, Neutrophils (%) (Auto) 66, Lymphocytes (%) (Auto) 22, Monocytes (%) (Auto) 10, Eosinophils (%) (Auto) 2, Basophils (%) (Auto) 0, Neutrophils # (Auto) 3.5, Lymphocytes # (Auto) 1.2, Monocytes # (Auto) 0.5, Eosinophils # (Auto) 0.1, Basophils # (Auto) 0.0, Sodium Level 142, Potassium Level 3.8, Chloride Level 106, Carbon Dioxide Level 26, Anion Gap 10, Blood Urea Nitrogen 16, Creatinine 1.35H, Estimat Glomerular Filtration Rate 40, BUN/Creatinine Ratio 12, Glucose Level 169H, Calcium Level 9.2, Corrected Calcium 9.5, Magnesium Level 2.1, Iron Level 53, Total Bilirubin 0.3, Aspartate Amino Transf (AST/SGOT) 51H, Alanine Aminotransferase (ALT/SGPT) 42, Alkaline Phosphatase 115, Total Protein 7.1, Albumin 3.6, Thyroid Stimulating Hormone (TSH) 1.24 02/18/19 11:10: Glucometer 250H 02/18/19 15:35: Glucometer 277H 02/18/19 20:27: Glucometer 334H 02/19/19 02:54: Glucometer 214H 02/19/19 05:46: Glucometer 232H 02/19/19 10:30: Glucometer 345H 02/19/19 10:31: Glucometer 356H 02/19/19 15:29: Glucometer 220H 02/19/19 20:07: Glucometer 156H 02/20/19 00:23: Glucometer 77 02/20/19 04:49: Glucometer 169H 02/20/19 05:43: White Blood Count 5.0, Red Blood Count 3.30L, Hemoglobin 8.7L, Hematocrit 29L, Mean Corpuscular Volume 87, Mean Corpuscular Hemoglobin 26, Mean Corpuscular Hemoglobin Concent 30L, Red Cell Distribution Width 16.2H, Platelet Count 126L, Mean Platelet Volume 11.4H, Neutrophils (%) (Auto) 72, Lymphocytes (%) (Auto) 19, Monocytes (%) (Auto) 7, Eosinophils (%) (Auto) 2, Basophils (%) (Auto) 0, Neutrophils # (Auto) 3.6, Lymphocytes # (Auto) 1.0, Monocytes # (Auto) 0.3, Eosinophils # (Auto) 0.1, Basophils # (Auto) 0.0, Sodium Level 135, Potassium Level 4.5, Chloride Level 101, Carbon Dioxide Level 23, Anion Gap 11, Blood Urea Nitrogen 18, Creatinine 1.28, Estimat Glomerular Filtration Rate 42, BUN/Creatinine Ratio 14, Glucose Level 182H, Calcium Level 9.2, Corrected Calcium 9.5, Total Bilirubin 0.4, Aspartate Amino Transf (AST/SGOT) 53H, Alanine Aminotransferase (ALT/SGPT) 45, Alkaline Phosphatase 117, Total Protein 7.0, Albumin 3.6 02/20/19 10:52: Glucometer 187H 02/20/19 15:34: Glucometer 226H 02/20/19 20:22: Glucometer 245H 02/21/19 05:36: Glucometer 183H 02/21/19 10:38: Glucometer 206H 02/21/19 15:39: Glucometer 220H 02/21/19 20:34: Glucometer 177H 02/22/19 06:05: Glucometer 246H 02/22/19 10:33: Glucometer 120H 02/22/19 15:37: Glucometer 249H 02/22/19 20:22: Glucometer 239H 02/23/19 05:15: Glucometer 200H 02/23/19 11:01: Glucometer 152H 02/23/19 15:27: Glucometer 287H 02/23/19 20:29: Glucometer 223H 02/24/19 05:15: Glucometer 233H 02/24/19 10:54: Glucometer 192H Pending Labs Laboratory Tests 02/17/19 15:59: Glucometer 108 02/17/19 20:35: Glucometer 303 02/18/19 05:09: Glucometer 183 02/18/19 05:29: White Blood Count 5.4, Red Blood Count 3.33, Hemoglobin 8.8, Hematocrit 29, Mean Corpuscular Volume 88, Mean Corpuscular Hemoglobin 26, Mean Corpuscular Hemoglobin Concent 30, Red Cell Distribution Width 16.5, Platelet Count 170, Mean Platelet Volume 10.5, Neutrophils (%) (Auto) 66, Lymphocytes (%) (Auto) 22, Monocytes (%) (Auto) 10, Eosinophils (%) (Auto) 2, Basophils (%) (Auto) 0, Neutrophils # (Auto) 3.5, Lymphocytes # (Auto) 1.2, Monocytes # (Auto) 0.5, Eosinophils # (Auto) 0.1, Basophils # (Auto) 0.0, Sodium Level 142, Potassium Level 3.8, Chloride Level 106, Carbon Dioxide Level 26, Anion Gap 10, Blood Urea Nitrogen 16, Creatinine 1.35, Estimat Glomerular Filtration Rate 40, BUN /Creatinine Ratio 12, Glucose Level 169, Calcium Level 9.2, Corrected Calcium 9.5, Magnesium Level 2.1, Iron Level 53, Total Bilirubin 0.3, Aspartate Amino Transf (AST/SGOT) 51, Alanine Aminotransferase (ALT/SGPT) 42, Alkaline Phosphatase 115, Total Protein 7.1, Albumin 3.6, Thyroid Stimulating Hormone (TSH) 1.24 02/18/19 11:10: Glucometer 250 02/18/19 15:35: Glucometer 277 02/18/19 20:27: Glucometer 334 02/19/19 02:54: Glucometer 214 02/19/19 05:46: Glucometer 232 02/19/19 10:30: Glucometer 345 02/19/19 10:31: Glucometer 356 02/19/19 15:29: Glucometer 220 02/19/19 20:07: Glucometer 156 02/20/19 00:23: Glucometer 77 02/20/19 04:49: Glucometer 169 02/20/19 05:43: White Blood Count 5.0, Red Blood Count 3.30, Hemoglobin 8.7, Hematocrit 29, Mean Corpuscular Volume 87, Mean Corpuscular Hemoglobin 26, Mean Corpuscular Hemoglobin Concent 30, Red Cell Distribution Width 16.2, Platelet Count 126, Mean Platelet Volume 11.4, Neutrophils (%) (Auto) 72, Lymphocytes (%) (Auto) 19, Monocytes (%) (Auto) 7, Eosinophils (%) (Auto) 2, Basophils (%) (Auto) 0, Neutrophils # (Auto) 3.6, Lymphocytes # (Auto) 1.0, Monocytes # (Auto) 0.3, Eosinophils # (Auto) 0.1, Basophils # (Auto) 0.0, Sodium Level 135, Potassium Level 4.5, Chloride Level 101, Carbon Dioxide Level 23, Anion Gap 11, Blood Urea Nitrogen 18, Creatinine 1.28, Estimat Glomerular Filtration Rate 42, BUN/Creatinine Ratio 14, Glucose Level 182, Calcium Level 9.2, Corrected Calcium 9.5, Total Bilirubin 0.4, Aspartate Amino Transf (AST/SGOT) 53, Alanine Aminotransferase (ALT/SGPT) 45, Alkaline Phosphatase 117, Total Protein 7.0, Albumin 3.6 02/20/19 10:52: Glucometer 187 02/20/19 15:34: Glucometer 226 02/20/19 20:22: Glucometer 245 02/21/19 05:36: Glucometer 183 02/21/19 10:38: Glucometer 206 02/21/19 15:39: Glucometer 220 02/21/19 20:34: Glucometer 177 02/22/19 06:05: Glucometer 246 02/22/19 10:33: Glucometer 120 02/22/19 15:37: Glucometer 249 02/22/19 20:22: Glucometer 239 02/23/19 05:15: Glucometer 200 02/23/19 11:01: Glucometer 152 02/23/19 15:27: Glucometer 287 02/23/19 20:29: Glucometer 223 02/24/19 05:15: Glucometer 233 02/24/19 10:54: Glucometer 192 Discharge Home Medications: Active Scripts Active Advair Hfa 115-21 Mcg Inhaler (Fluticasone/Salmeterol) 12 Gm Hfa.aer.ad 2 Puff IH BID@08,20 Spironolactone 25 Mg Tablet 25 Mg PO DAILY Metoprolol Succinate 25 Mg Tab.er.24h 25 Mg PO DAILY Doxazosin Mesylate 1 Mg Tablet 1 Mg PO HS Reported Metformin HCl ER (Metformin HCl) 500 Mg Tab.er.24h 500 Mg PO BID Hydrocodon-Acetaminophn 10-325 (Hydrocodone/Acetaminophen) 1 Each Tablet 1 Ea PO TID PRN Xarelto (Rivaroxaban) 20 Mg Tablet 20 Mg PO DAILY Iprat-Albut 0.5-3(2.5) mg/3 ml (Ipratropium/Albuterol Sulfate) 3 Ml Ampul.neb 3 Ml IH BID PRN Levemir (Insulin Determir) 1,000 Units/10 Ml Soln 15 Units SQ HS Novolog (Insulin Aspart) 100 Unit/1 Ml Susp 10 Unit SQ TIDAC Amlodipine Besylate 10 Mg Tablet 10 Mg PO DAILY Trulicity (Dulaglutide) 0.75 Mg/0.5 Ml Pen.injctr 0.75 Mg SC BOWIE Mysoline (Primidone) 50 Mg Tablet 50 Mg PO HS Stool Softener-Stimulant Lax (Sennosides/Docusate Sodium) 1 Each Tablet 1 Tab PO DAILY PRN Fish Oil 1,000 mg Softgel (Miller-3/Dha/Epa/Fish Oil) 1 Each Capsule 1,000 Mg PO DAILY Multi-Day Plus Minerals Tablet (Multivitamin-Min/Iron/FA/Vit K) 1 Each Tablet 1 Tab PO DAILY Cyclobenzaprine HCl 10 Mg Tablet 20 Mg PO BID PRN Atorvastatin Calcium 40 Mg Tablet 40 Mg PO DAILY Magnesium (Magnesium Oxide) 400 Mg Tablet 400 Mg PO HS Aspirin EC (Aspirin) 81 Mg Tablet.dr 81 Mg PO DAILY Gabapentin 600 Mg Tablet 600 Mg PO TID Pantoprazole Sodium 40 Mg Tablet.dr 40 Mg PO DAILY Isosorbide Mononitrate ER (Isosorbide Mononitrate) 60 Mg Tab 60 Mg PO DAILY Fenofibrate (Fenofibrate,Micronized) 134 Mg Capsule 134 Mg PO HS Cinnamon (Cinnamon Bark) 500 Mg Capsule 500 Mg PO BID Instructions to patient/family Please see electronic discharge instructions given to patient. Diagnosis/Problems Diagnosis/Problems (1) Debility (2) Encephalopathy (3) Diabetes mellitus, type 2 Status: Chronic (4) CKD (chronic kidney disease) Status: Chronic (5) GERD (gastroesophageal reflux disease) Status: Chronic (6) A-fib (7) HTN (hypertension) Status: Chronic (8) HLD (hyperlipidemia) Status: Chronic (9) COPD (chronic obstructive pulmonary disease) (10) RESPIRATORY FAILURE, UNSP, UNSP W HYPOXIA OR HYPERCAPNIA (11) Multilevel degenerative disc disease (12) Lumbar spondylosis (13) Bradycardia Status: Acute Clinical Quality Measures DVT/VTE Risk/Contraindication: Risk Factor Score Per Nursin RFS Level Per Nursing on Admit: 4+=Very High ZACK ESCOBEDO DO Feb 24, 2019 12:54 POS
--- NOTE | 2019-02-27 08:47 | Therapy Team Discharge Summary ---
Therapy Discharge Summary Discharge Recommendations Date of Discharge Feb 24, 2019 at 14:00 Therapy D/C Recommendations: Home w/ Family Support, Occupational Therapy Home Care Physical Therapy Pt. has been seen by occupational therapy to increase overall strength and independence. Pt. has met all goals. Pt. has discharged home with spouse support. Would likely benefit from home health evaluation to make sure that pt. is safe with ambulation and ADL skills in home. Recommended sock aide for home use. Occupational Therapy Decreased Activ Tolerance PT Assisted Goals Assisted Goals PT Assisted Goals Time Frame: Mar 03, 2019 Roll Left to Right (QC): 6 Sit to Lying (QC): 6 Lying-Sitting on Side/Bed(QC): 6 Sit to Stand (QC): 6 Chair/Bgm-dd-Ovxyu Xfer(QC): 6 Car Transfer (QC): 6 Does the Patient Walk: Yes Walk 10 feet (QC): 6 Walk 10ft-Uneven Surface(QC): 6 Walk 50ft with 2 Turns (QC): 6 Walk 150 ft (QC): 6 Does the Pt use WC or Scooter?: No 1 Step (curb) (QC): 6 4 Steps (QC): 6 12 Steps (QC): 6 Picking up an Object (QC): 6 OT State Wildlife Officer Goals State Wildlife Officer Goals Time Frame: Mar 03, 2019 Eating (QC): 6 (met) Oral Hygiene (QC): 6 (met) Shower/Bathe Self (QC): 6 (met) Upper Body Dressing (QC): 6 (met) Lower Body Dressing (QC): 6 (met) On/Off Footwear (QC): 6 (met) Toileting Hygiene (QC): 6 (met) Toilet/Commode Transfer (QC): 6 (met) Additional Goals: 1-Demonstrate ADL Tasks, 2-Verbalize Understanding, 3-Improv eStrength/Idane 1=Demonstrate adherence to instructed precautions during ADL tasks. 2=Patient will verbalize/demonstrate understanding of assistive devices/modifications for ADL. 3=Patient will improve strength/tolerance for activity to enable patient to p erform ADL's. DOV BADILLO OT Feb 27, 2019 08:47 POS
--- OUTSIDE RECORDS SUMMARY | 2019-03-15 14:55 | XMS REPORT | Continuity of Care Document ---
Author Organization Unknown Address Unknown Phone Unavailable Allergies Active Description Code Type Severity Reaction Onset Reported/Identified Relationship to Patient Clinical Status Yes No Known Drug Allergies [id number] Drug Allergy Unknown N/A 11/13/2011 Yes morphine [id number] Drug Allergy Severe hallucination 07/12/2018 Medications There is no data. Problems Date Dx Coded Attending Type Code Diagnosis Diagnosed By 11/13/2011 GEE AMADO MD 786.5 0 UNSPECIFIED CHEST PAIN 11/13/2011 GEE AMADO MD 786.5 0 UNSPECIFIED CHEST PAIN 11/13/2011 GEE AMADO MD 786.5 0 UNSPECIFIED CHEST PAIN 11/13/2011 786.50 UNS PECIFIED CHEST PAIN 11/13/2011 786.50 UNS PECIFIED CHEST PAIN 11/13/2011 IBAN DAVALOS DDS 786.50 UNSPECIFIED CHEST PAIN 11/13/2011 IBAN DAVALOS DDS 786.50 UNSPECIFIED CHEST PAIN 11/13/2011 GEE AMADO MD 786.5 0 UNSPECIFIED CHEST PAIN 11/13/2011 MAURO DOLAN JUSTICE K 786.50 UNSPECIFIED CHEST PAIN 11/13/2011 IBAN DAVALOS DDS 786.50 UNSPECIFIED CHEST PAIN 11/13/2011 GEE AMADO MD 786.5 0 UNSPECIFIED CHEST PAIN 11/13/2011 JOELLE DAVALOS DDS 786.50 UNSPECIFIED CHEST PAIN 11/13/2011 WADE DO, JUSTICE K 786.50 UNSPECIFIED CHEST PAIN 11/13/2011 WADE DO, JUSTICE K 786.50 UNSPECIFIED CHEST PAIN 11/13/2011 VAN LAWRENCE APRN 786.50 UNSPECIFIED CHEST PAIN 11/13/2011 IBAN DAVALOS DDS 786.50 UNSPECIFIED CHEST PAIN 11/13/2011 GEE AMADO MD 786.5 0 UNSPECIFIED CHEST PAIN 11/13/2011 GEE AMADO MD 786.5 0 UNSPECIFIED CHEST PAIN 11/13/2011 LALITO TERRAZAS APRN 786 .50 UNSPECIFIED CHEST PAIN 11/13/2011 GEE AMADO MD 786.5 0 UNSPECIFIED CHEST PAIN 11/13/2011 GEE AMADO MD 786.5 0 UNSPECIFIED CHEST PAIN 11/13/2011 GEE AMADO MD 786.5 0 UNSPECIFIED CHEST PAIN 11/13/2011 GEE AMADO MD 786.5 0 UNSPECIFIED CHEST PAIN 11/13/2011 GEE AMADO MD 786.5 0 UNSPECIFIED CHEST PAIN 11/16/2011 Ot 250.02 GIA Yash OMALLEY WO COMPL, TYPE II OR UNSPEC TY 11/16/2011 Ot 272.4 HYPE RLIPIDEMIA NEC/NOS 11/16/2011 Ot 275.2 DIS MAGNESIUM METABOLISM 11/16/2011 Ot 276.1 HYPO SMOLALITY 11/16/2011 Ot 401.9 HYPE RTENSION NOS 11/16/2011 Ot 411.1 INTE RMED CORONARY SYND 11/16/2011 Ot 414.01 COR ONARY ATHEROSCLEROSIS OF [place] CORON 11/16/2011 Ot 530.81 ESO PHAGEAL REFLUX 11/16/2011 Ot V15.82 HIS TORY OF TOBACCO USE 11/16/2011 Ot V45.82 PER CUTANEOUS TRANSLUM CORON ANGIOPLASTY 12/16/2011 GEE AMADO MD 250.0 2 DIABETES II UNCONTROLLED (UNCOMPLICATED) 12/16/2011 GEE AMADO MD 401.9 HYPERTENSION, UNSPECIFIED ESSENTIAL 12/16/2011 GEE AMADO MD 414.0 0 CAD 12/16/2011 GEE AMADO MD 250.0 2 DIABETES II UNCONTROLLED (UNCOMPLICATED) 12/16/2011 GEE AMADO MD 401.9 HYPERTENSION, UNSPECIFIED ESSENTIAL 12/16/2011 GEE AMADO MD 414.0 0 CAD 12/16/2011 GEE AMADO MD 250.0 2 DIABETES II UNCONTROLLED (UNCOMPLICATED) 12/16/2011 GEE AMADO MD 401.9 HYPERTENSION, UNSPECIFIED ESSENTIAL 12/16/2011 GEE AMADO MD 414.0 0 CAD 12/16/2011 250.02 GIA BETES II UNCONTROLLED (UNCOMPLICATED) 12/16/2011 401.9 HYPE RTENSION, UNSPECIFIED ESSENTIAL 12/16/2011 414.00 CAD 12/16/2011 250.02 GIA BETES II UNCONTROLLED (UNCOMPLICATED) 12/16/2011 401.9 HYPE RTENSION, UNSPECIFIED ESSENTIAL 12/16/2011 414.00 CAD 12/16/2011 WHITE DDS, IBAN D 250.02 DIABETES II UNCONTROLLED (UNCOMPLICATED) 12/16/2011 WHITE DDS, IBAN D 40 1.9 HYPERTENSION, UNSPECIFIED ESSENTIAL 12/16/2011 WHITE DDS, IBAN D 414.00 CAD 12/16/2011 WHITE DDS, IBAN D 250.02 DIABETES II UNCONTROLLED (UNCOMPLICATED) 12/16/2011 WHITE DDS, IBAN D 40 1.9 HYPERTENSION, UNSPECIFIED ESSENTIAL 12/16/2011 WHITE DDS, IBAN D 414.00 CAD 12/16/2011 GEE AMADO MD 250.0 2 DIABETES II UNCONTROLLED (UNCOMPLICATED) 12/16/2011 GEE AMADO MD 401.9 HYPERTENSION, UNSPECIFIED ESSENTIAL 12/16/2011 GEE AMADO MD 414.0 0 CAD 12/16/2011 WADE DO, JUSTICE K 250.02 DIABETES II UNCONTROLLED (UNCOMPLICATED) 12/16/2011 WADE DO, JUSTICE K 401.9 HYPERTENSION, UNSPECIFIED ESSENTIAL 12/16/2011 WADE DO, JUSTICE K 414.00 CAD 12/16/2011 WHITE DDSIBAN D 250.02 DIABETES II UNCONTROLLED (UNCOMPLICATED) 12/16/2011 WHITE DDS IBAN D 40 1.9 HYPERTENSION, UNSPECIFIED ESSENTIAL 12/16/2011 WHITE DDS, IBAN D 414.00 CAD 12/16/2011 GEE AMADO MD 250.0 2 DIABETES II UNCONTROLLED (UNCOMPLICATED) 12/16/2011 GEE AMADO MD 401.9 HYPERTENSION, UNSPECIFIED ESSENTIAL 12/16/2011 GEE AMADO MD 414.0 0 CAD 12/16/2011 WHITE DDS, JOELLE J 250.02 DIABETES II UNCONTROLLED (UNCOMPLICATED) 12/16/2011 WHITE DDS, JOELLE J 40 1.9 HYPERTENSION, UNSPECIFIED ESSENTIAL 12/16/2011 WHITE DDS, JOELLE [...] DO, JUSTICE K 414.00 CAD 12/16/2011 MELINDA TEAM GUIDE, VAN A 250.02 DIABETES II UNCONTROLLED (UNCOMPLICATED) 12/16/2011 MELINDA TEAM GUIDE, VAN A 40 1.9 HYPERTENSION, UNSPECIFIED ESSENTIAL 12/16/2011 MELINDA TEAM GUIDE, VAN A 414.00 CAD 12/16/2011 WHITE DDS, IBAN D 250.02 DIABETES II UNCONTROLLED (UNCOMPLICATED) 12/16/2011 WHITE DDS, IBAN D 40 1.9 HYPERTENSION, UNSPECIFIED ESSENTIAL 12/16/2011 WHITE DDS, IBAN D 414.00 CAD 12/16/2011 GEE AMADO MD 250.0 2 DIABETES II UNCONTROLLED (UNCOMPLICATED) 12/16/2011 GEE AMADO MD 401.9 HYPERTENSION, UNSPECIFIED ESSENTIAL 12/16/2011 GEE AMADO MD 414.0 0 CAD 12/16/2011 GEE AMADO MD 250.0 2 DIABETES II UNCONTROLLED (UNCOMPLICATED) 12/16/2011 GEE AMADO MD 401.9 HYPERTENSION, UNSPECIFIED ESSENTIAL 12/16/2011 GEE AMADO MD 414.0 0 CAD 12/16/2011 BEATRIZL TEAM GUIDE, LALITO L 250 .02 DIABETES II UNCONTROLLED (UNCOMPLICATED) 12/16/2011 NINI TEAM GUIDE, LALITO L 401 .9 HYPERTENSION, UNSPECIFIED ESSENTIAL 12/16/2011 NINI BREEN, LALITO L 414 .00 CAD 12/16/2011 GEE AMADO MD 250.0 2 DIABETES II UNCONTROLLED (UNCOMPLICATED) 12/16/2011 GEE AMADO MD 401.9 HYPERTENSION, UNSPECIFIED ESSENTIAL 12/16/2011 GEE AMADO MD 414.0 0 CAD 12/16/2011 GEE AMADO MD 250.0 2 DIABETES II UNCONTROLLED (UNCOMPLICATED) 12/16/2011 GEE AMADO MD 401.9 HYPERTENSION, UNSPECIFIED ESSENTIAL 12/16/2011 GEE AMADO MD 414.0 0 CAD 12/16/2011 GEE AMADO MD 250.0 2 DIABETES II UNCONTROLLED (UNCOMPLICATED) 12/16/2011 GEE AMADO MD 401.9 HYPERTENSION, UNSPECIFIED ESSENTIAL 12/16/2011 GEE AMADO MD 414.0 0 CAD 12/16/2011 GEE AMADO MD 250.0 2 DIABETES II UNCONTROLLED (UNCOMPLICATED) 12/16/2011 GEE AMADO MD 401.9 HYPERTENSION, UNSPECIFIED ESSENTIAL 12/16/2011 GEE AMADO MD 414.0 0 CAD 12/16/2011 GEE AMADO MD 250.0 2 DIABETES II UNCONTROLLED (UNCOMPLICATED) 12/16/2011 GEE AMADO MD 401.9 HYPERTENSION, UNSPECIFIED ESSENTIAL 12/16/2011 GEE AMADO MD 414.0 0 CAD 01/14/2012 GEE AMADO MD V04.8 1 FLU DX (3 YRS AND ABOVE, IM) 01/14/2012 GEE AMADO MD V04.8 1 FLU DX (3 YRS AND ABOVE, IM) 01/14/2012 GEE AMADO MD V04.8 1 FLU DX (3 YRS AND ABOVE, IM) 01/14/2012 V04.81 FLU DX (3 YRS AND ABOVE, IM) 01/14/2012 V04.81 FLU DX (3 YRS AND ABOVE, IM) 01/14/2012 IBAN DAVALOS DDS V04.81 FLU DX (3 YRS AND ABOVE, IM) 01/14/2012 IBAN DAVALOS DDS V04.81 FLU DX (3 YRS AND ABOVE, IM) 01/14/2012 GEE AMADO MD V04.8 1 FLU DX (3 YRS AND ABOVE, IM) 01/14/2012 ARUNA WADE DOA K V04.81 FLU DX (3 YRS AND ABOVE, IM) 01/14/2012 IBAN DAVALOS DDS V04.81 FLU DX (3 YRS AND ABOVE, IM) 01/14/2012 GEE AMADO MD V04.8 1 FLU DX (3 YRS AND ABOVE, IM) 01/14/2012 JOELLE DAVALOS DDS V04.81 FLU DX (3 YRS AND ABOVE, IM) 01/14/2012 WADE DO JUSTICE K V04.81 FLU DX (3 YRS AND ABOVE, IM) 01/14/2012 WADE DO, JUSTICE K V04.81 FLU DX (3 YRS AND ABOVE, IM) 01/14/2012 VAN LAWRENCE APRN V04.81 FLU DX (3 YRS AND ABOVE, IM) 01/14/2012 IBAN DAVALOS DDS V04.81 FLU DX (3 YRS AND ABOVE, IM) 01/14/2012 GEE AMADO MD V04.8 1 FLU DX (3 YRS AND ABOVE, IM) 01/14/2012 GEE AMADO MD V04.8 1 FLU DX (3 YRS AND ABOVE, IM) 01/14/2012 NINI TEAM GUIDELALITO Beavers V04 .81 FLU DX (3 YRS AND ABOVE, IM) 01/14/2012 GEE AMADO MD V04.8 1 FLU DX (3 YRS AND ABOVE, IM) 01/14/2012 GEE AMADO MD V04.8 1 FLU DX (3 YRS AND ABOVE, IM) 01/14/2012 GEE AMADO MD V04.8 1 FLU DX (3 YRS AND ABOVE, IM) 01/14/2012 GEE AMADO MD V04.8 1 FLU DX (3 YRS AND ABOVE, IM) 01/14/2012 GEE AMADO MD4.8 1 FLU DX (3 YRS AND ABOVE, IM) 04/13/2012 GEE AMADO MD 272.4 HYPERLIPIDEMIA 04/13/2012 GEE AMADO MD 272.4 HYPERLIPIDEMIA 04/13/2012 GEE AMADO MD 272.4 HYPERLIPIDEMIA 04/13/2012 272.4 HYPE RLIPIDEMIA 04/13/2012 272.4 HYPE RLIPIDEMIA 04/13/2012 WHITE DDS, IBAN D 27 2.4 HYPERLIPIDEMIA 04/13/2012 WHITE DDS, IBAN D 27 2.4 HYPERLIPIDEMIA 04/13/2012 GEE AMADO MD 272.4 HYPERLIPIDEMIA 04/13/2012 WADE DO, JUSTICE K 272.4 HYPERLIPIDEMIA 04/13/2012 WHITE DDS, IBAN D 27 2.4 HYPERLIPIDEMIA 04/13/2012 GEE AMADO MD 272.4 HYPERLIPIDEMIA 04/13/2012 WHITE DDS, JOELLE J 27 2.4 HYPERLIPIDEMIA 04/13/2012 WADE DO, JUSTICE K 272.4 HYPERLIPIDEMIA 04/13/2012 WADE DO, JUSTICE K 272.4 HYPERLIPIDEMIA 04/13/2012 MELINDA TEAM GUIDE, VAN A 27 2.4 HYPERLIPIDEMIA 04/13/2012 WHITE DDS, IBAN D 27 2.4 HYPERLIPIDEMIA 04/13/2012 GEE AMADO MD 272.4 HYPERLIPIDEMIA 04/13/2012 GEE AMADO MD 272.4 HYPERLIPIDEMIA 04/13/2012 LALITO TERRAZAS APRN L 272 .4 HYPERLIPIDEMIA 04/13/2012 GEE AMADO MD 272.4 HYPERLIPIDEMIA 04/13/2012 GEE AMADO MD 272.4 HYPERLIPIDEMIA 04/13/2012 GEE AMADO MD 272.4 HYPERLIPIDEMIA 04/13/2012 GEE AMADO MD 272.4 HYPERLIPIDEMIA 05/10/2012 GEE AMADO MD 250.0 0 DIABETES MELLITUS POORLY CONTROLLED 05/10/2012 GEE AMADO MD 250.0 0 DIABETES MELLITUS POORLY CONTROLLED 05/10/2012 250.00 GIA BETES MELLITUS POORLY CONTROLLED 05/10/2012 250.00 GIA BETES MELLITUS POORLY CONTROLLED 05/10/2012 WHITE DDS, IBAN D 250.00 DIABETES MELLITUS POORLY CONTROLLED 05/10/2012 WHITE DDS, IBAN D 250.00 DIABETES MELLITUS POORLY CONTROLLED 05/10/2012 GEE AMADO MD 250.0 0 DIABETES MELLITUS POORLY CONTROLLED 05/10/2012 WADE DO, JUSTICE K 250.00 DIABETES MELLITUS POORLY CONTROLLED 05/10/2012 SUSANNAH BANUELOSS, IBAN D 250.00 DIABETES MELLITUS POORLY CONTROLLED 05/10/2012 GEE AMADO MD 250.0 0 DIABETES MELLITUS POORLY CONTROLLED 05/10/2012 SUSANNAH BANUELOSS, JOELLE J 250.00 DIABETES MELLITUS POORLY CONTROLLED 05/10/2012 WADE DO, JUSTICE K 250.00 DIABETES MELLITUS POORLY CONTROLLED 05/10/2012 WADE DO, JUSTICE K 250.00 DIABETES MELLITUS POORLY CONTROLLED 05/10/2012 VAN LAWRENCE APRN 250.00 DIABETES MELLITUS POORLY CONTROLLED 05/10/2012 SUSANNAH BANUELOSS, IBAN D 250.00 DIABETES MELLITUS POORLY CONTROLLED 05/10/2012 GEE AMADO MD 250.0 0 DIABETES MELLITUS POORLY CONTROLLED 05/10/2012 GEE AMADO MD 250.0 0 DIABETES MELLITUS POORLY CONTROLLED 05/10/2012 LALITO TERRAZAS APRN 250 .00 DIABETES MELLITUS POORLY CONTROLLED 05/10/2012 GEE AMADO MD 250.0 0 DIABETES MELLITUS POORLY CONTROLLED 05/10/2012 GEE AMADO MD 250.0 0 DIABETES MELLITUS POORLY CONTROLLED 05/10/2012 GEE AMADO MD 250.0 0 DIABETES MELLITUS POORLY CONTROLLED 05/10/2012 GEE AMADO MD 250.0 0 DIABETES MELLITUS POORLY CONTROLLED 10/10/2012 357.2 POLY NEUROPATHY IN DIABETES 10/10/2012 SUSANNAH BANUELOSS, IBAN D 35 7.2 POLYNEUROPATHY IN DIABETES 10/10/2012 SUSANNAH BANUELOSSIBAN D 35 7.2 POLYNEUROPATHY IN DIABETES 10/10/2012 GEE AMADO MD 357.2 POLYNEUROPATHY IN DIABETES 10/10/2012 WADE JUSTICE K 357.2 POLYNEUROPATHY IN DIABETES 10/10/2012 IBAN DAVALOS DDS 35 7.2 POLYNEUROPATHY IN DIABETES 10/10/2012 GEE AMADO MD 357.2 POLYNEUROPATHY IN DIABETES 10/10/2012 JOELLE DAVALOS DDS 35 7.2 POLYNEUROPATHY IN DIABETES 10/10/2012 WADE JUSTICE K 357.2 POLYNEUROPATHY IN DIABETES 10/10/2012 WADE ARUNA DOLANA K 357.2 POLYNEUROPATHY IN DIABETES 10/10/2012 VAN LAWRENCE APRN 35 7.2 POLYNEUROPATHY IN DIABETES 10/10/2012 IBAN DAVALOS DDS 35 7.2 POLYNEUROPATHY IN DIABETES 10/10/2012 GEE AMADO MD 357.2 POLYNEUROPATHY IN DIABETES 10/10/2012 GEE AMADO MD 357.2 POLYNEUROPATHY IN DIABETES 10/10/2012 LALITO TERRAZAS APRN 357 .2 POLYNEUROPATHY IN DIABETES 10/10/2012 GEE AMADO MD 357.2 POLYNEUROPATHY IN DIABETES 10/10/2012 GEE AMADO MD 357.2 POLYNEUROPATHY IN DIABETES 10/10/2012 GEE AMADO MD 357.2 POLYNEUROPATHY IN DIABETES 10/10/2012 GEE AMADO MD 357.2 POLYNEUROPATHY IN DIABETES 10/26/2012 RK RAWLS MD Ot 401.9 HYPERTENSION NOS 10/26/2012 RK RAWLS MD Ot 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 4 HYPERLIPIDEMIA NEC/NOS 08/28/2013 BOOM MILLER MD Ot 401. 9 HYPERTENSION NOS 08/28/2013 BOOM MILLER MD Ot 414. 01 CORONARY ATHEROSCLEROSIS OF [place] CORON 08/28/2013 BOOM MILLER MD Ot 786. 50 CHEST PAIN NOS 08/28/2013 BOOM MILLER MD Ot V45. 82 PERCUTANEOUS TRANSLUM CORON ANGIOPLASTY 10/23/2013 VAN LAWRENCE APRN V76.10 BREAST CANCER SCREENING 10/23/2013 IBAN DAVALOS DDS V76.10 BREAST CANCER SCREENING 10/23/2013 GEE AMADO MD V76.1 0 BREAST CANCER SCREENING 10/23/2013 GEE AMADO MD V76.1 0 BREAST CANCER SCREENING 10/23/2013 LALITO TERRAZAS APRN V76 .10 BREAST CANCER SCREENING 10/23/2013 GEE AMADO MD V76.1 0 BREAST CANCER SCREENING 10/23/2013 GEE AMADO MD V76.1 0 BREAST CANCER SCREENING 10/23/2013 GEE AMADO MD V76.1 0 BREAST CANCER SCREENING 10/23/2013 GEE AMADO MD V76.1 0 BREAST CANCER SCREENING 02/06/2014 GEE AMADO MD 805.0 0 CLOSED FRACTURE OF CERVICAL VERTEBRA UNSPECIFIED LEVEL 02/06/2014 GEE AMADO MD 805.0 0 CLOSED FRACTURE OF CERVICAL VERTEBRA UNSPECIFIED LEVEL 02/06/2014 LALITO TERRAZAS APRN 805 .00 CLOSED FRACTURE OF CERVICAL VERTEBRA UNSPECIFIED LEVEL 02/06/2014 GEE AMADO MD 805.0 0 CLOSED FRACTURE OF CERVICAL VERTEBRA UNSPECIFIED LEVEL 02/06/2014 GEE AMADO MD 805.0 0 CLOSED FRACTURE OF CERVICAL VERTEBRA UNSPECIFIED LEVEL 02/06/2014 GEE AMADO MD 805.0 0 CLOSED FRACTURE OF CERVICAL VERTEBRA UNSPECIFIED LEVEL 02/06/2014 GEE AMADO MD 805.0 0 CLOSED FRACTURE OF CERVICAL VERTEBRA UNSPECIFIED LEVEL 03/06/2014 LALITO TERRAZAS APRN 719 .43 PAIN IN JOINT INVOLVING FOREARM 03/06/2014 LALITO TERRAZAS APRN 719 .44 PAIN IN JOINT INVOLVING HAND 03/06/2014 GEE AMADO MD 719.4 3 PAIN IN JOINT INVOLVING FOREARM 03/06/2014 GEE AMADO MD 719.4 4 PAIN IN JOINT INVOLVING HAND 03/06/2014 GEE AMADO MD 719.4 3 PAIN IN JOINT INVOLVING FOREARM 03/06/2014 GEE AMADO MD 719.4 4 PAIN IN JOINT INVOLVING HAND 03/06/2014 GEE AMADO MD 719.4 3 PAIN IN JOINT INVOLVING FOREARM 03/06/2014 GEE AMADO MD 719.4 4 PAIN IN JOINT INVOLVING HAND 03/06/2014 GEE AMADO MD 719.4 3 PAIN IN JOINT INVOLVING FOREARM 03/06/2014 GEE AMADO MD 719.4 4 PAIN IN JOINT INVOLVING HAND 06/01/2014 GEE AMADO MD 338.2 9 OTHER CHRONIC PAIN 08/16/2014 JEFRY FLOREZ, VIVIANA K Ot 250.00 08/16/2014 JEFRY FLOREZ, VIVIANA K Ot 272.4 08/16/2014 JEFRY FLOREZ, VIVIANA K Ot 401.9 08/16/2014 JEFRY FLOREZ, VIVIAAN K Ot 414.00 08/16/2014 JEFRY FLOREZ, VIVIANA K Ot 786.50 08/16/2014 VAN LAWRENCE TEAM GUIDE Ot V76.12 02/27/2015 JEFRY FLOREZ, VIVIANA K Ot 250.00 02/27/2015 JEFRY FLOREZ, VIVIANA K Ot 272.4 02/27/2015 JEFRY FLOREZ, VIVIANA K Ot 401.9 02/27/2015 JEFRY FLOREZ, VIVIANA K Ot 414.00 02/27/2015 JEFRY FLOREZ, VIVIANA K Ot 786.50 02/27/2015 VAN LAWRENCE TEAM GUIDE Ot V76.12 03/13/2015 BOOM MILLER MD Ot E11. 9 TYPE 2 DIABETES MELLITUS WITHOUT COMPLIC 03/13/2015 BOOM MILLER MD Ot E66. 9 OBESITY, UNSPECIFIED 03/13/2015 BOOM MILLER MD Ot E78. 5 HYPERLIPIDEMIA, UNSPECIFIED 03/13/2015 BOOM MILLER MD Ot G89. 29 OTHER CHRONIC PAIN 03/13/2015 BOOM MILLER MD Ot I10 ESSENTIAL (PRIMARY) HYPERTENSION 03/13/2015 BOOM MILLER MD Ot I11. 9 HYPERTENSIVE HEART DISEASE WITHOUT HEART 03/13/2015 BOOM MILLER MD Ot I25. 10 ATHSCL HEART DISEASE OF [place] CORONARY 03/13/2015 BOOM MILLER MD Ot R07. 89 OTHER CHEST PAIN 03/13/2015 BOOM MILLER MD Ot Z68. 35 BODY MASS INDEX (BMI) 35.0-35.9, ADULT 03/13/2015 BOOM MILLER MD Ot Z79. 4 FREIGHT CLAIM INVESTIGATOR (CURRENT) USE OF INSULIN 03/13/2015 BOOM MILLER MD, Ot Z79.899 OTHER SENIOR CARE (CURRENT) DRUG THERAPY 03/13/2015 BOOM MILLER MD Ot Z98. 61 CORONARY ANGIOPLASTY STATUS 03/21/2015 BOOM MILLER MD Ot E78. 5 03/21/2015 BOOM MILLER MD Ot I10 03/21/2015 BOOM MILLER MD Ot I25. 10 03/21/2015 BOOM MILLER MD Ot R07. 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 08/09/2015 Ot I10 ESSENT IAL (PRIMARY) HYPERTENSION 08/09/2015 Ot I25.10 ATH SCL HEART DISEASE OF [place] CORONARY 08/12/2015 XANDER ESQUIVEL MD Ot M54.12 RADICULOPATHY, CERVICAL REGION 08/14/2015 XANDER ESQUIVEL MD Ot M54.12 RADICULOPATHY, CERVICAL REGION 08/14/2015 XANDER ESQUIVEL MD Ot Z98 .1 ARTHRODESIS STATUS 08/14/2015 XANDER ESQUIVEL MD Ot M54.12 RADICULOPATHY, CERVICAL REGION 08/14/2015 XANDER ESQUIVEL MD Ot Z98 .1 ARTHRODESIS STATUS 09/06/2015 Ot E78.5 HYPE RLIPIDEMIA, UNSPECIFIED 09/06/2015 Ot 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 09/06/2015 Ot I10 ESSENT IAL (PRIMARY) HYPERTENSION 09/06/2015 Ot I25.10 ATH SCL HEART DISEASE OF [place] CORONARY 09/11/2015 ILANA SANTAMARIA MD Ot M54.2 CERVICALGIA 09/11/2015 ROSALIO MARAVILLA, ILANA French Ot M54.2 CERVICALGIA 09/11/2015 ALVIN MARAVILLA, XANDER Topete Ot M54.12 RADICULOPATHY, CERVICAL REGION 09/11/2015 ALVIN MARAVILLA, XANDER Topete Ot Z98 .1 ARTHRODESIS STATUS 09/13/2015 ROSALIO MARAVILLA, ILANA French Ot M48.0 2 SPINAL STENOSIS, CERVICAL REGION 09/13/2015 ROSALIO MARAVILLA, ILANA French Ot M50.3 0 OTHER CERVICAL DISC DEGENERATION, UNSP C 10/08/2015 ROSALIO MARAVILLA, ILANA French Ot M48.0 2 SPINAL STENOSIS, CERVICAL REGION 10/08/2015 ROSALIO MARAVILLA, ILANA French Ot M50.3 0 OTHER CERVICAL DISC DEGENERATION, UNSP C 02/22/2017 VIVIANA COTTO Ot 250.00 DIAB SHAHRAM WO COMPL, TYPE II OR UNSPEC TY 02/22/2017 VIVIANA COTTO Ot 272.4 HYPERLIPIDEMIA NEC/NOS 02/22/2017 VIVIANA COTTO Ot 401.9 HYPERTENSION NOS 02/22/2017 VIVIANA COTTO Ot 414.00 CORON ATHEROSCLER NOS TYPE VESSEL, NATIV 02/22/2017 VIVIANA COTTO Ot 786.50 CHEST PAIN NOS 02/22/2017 VAN LAWRENCE TEAM GUIDE Ot V76.12 OTH SCREEN MAMMO-MALIGN NEOPLASM OF [place] 02/22/2017 BOOM MILLER MD Ot E78. 5 HYPERLIPIDEMIA, UNSPECIFIED 02/22/2017 BOOM MILLER MD Ot I10 ESSENTIAL (PRIMARY) HYPERTENSION 02/22/2017 BOOM MILLER MD Ot I25. 10 ATHSCL HEART DISEASE OF [place] CORONARY 02/22/2017 BOOM MILLER MD Ot R07. 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 10 ATHSCL HEART DISEASE OF [place] CORONARY 03/06/2017 BOOM MILLER MD Ot Z79. 84 SENIOR CARE (CURRENT) USE OF ORAL HYPOGLYC 03/17/2017 BOOM MILLER MD Ot E78. 1 PURE HYPERGLYCERIDEMIA 03/17/2017 BOOM MILLER MD Ot E78. 2 MIXED HYPERLIPIDEMIA 03/17/2017 BOOM MILLER MD Ot I11. 0 HYPERTENSIVE HEART DISEASE WITH HEART FA 03/17/2017 BOOM MILLER MD Ot I34. 0 NONRHEUMATIC MITRAL (VALVE) INSUFFICIENC 03/17/2017 BOOM MILLER MD Ot I35. 8 OTHER NONRHEUMATIC AORTIC VALVE DISORDER 03/17/2017 BOOM MILLER MD Ot I51. 7 CARDIOMEGALY 03/17/2017 BOOM MILLER MD Ot R07. 89 OTHER CHEST PAIN 03/24/2017 BOOM MILLER MD Ot E78. 1 PURE HYPERGLYCERIDEMIA 03/24/2017 BOOM MILLER MD Ot E78. 2 MIXED HYPERLIPIDEMIA 03/24/2017 BOOM MILLER MD Ot I11. 9 HYPERTENSIVE HEART DISEASE WITHOUT HEART 03/24/2017 BOOM MILLER MD Ot I34. 0 NONRHEUMATIC MITRAL (VALVE) INSUFFICIENC 03/24/2017 BOOM MILLER MD Ot I35. 8 OTHER NONRHEUMATIC AORTIC VALVE DISORDER 03/24/2017 BOOM MILLER MD Ot R07. 89 OTHER CHEST PAIN 03/25/2017 BOOM MILLER MD Ot E78. 5 HYPERLIPIDEMIA, UNSPECIFIED 03/25/2017 BOOM IMLLER MD Ot I10 ESSENTIAL (PRIMARY) HYPERTENSION 03/25/2017 BOOM MILLER MD Ot I25. 10 ATHSCL HEART DISEASE OF [place] CORONARY 03/25/2017 BOOM MILLER MD Ot I48. 91 UNSPECIFIED ATRIAL FIBRILLATION 03/26/2017 BOOM MILLER MD Ot E78. 5 HYPERLIPIDEMIA, UNSPECIFIED 03/26/2017 BOOM MILLER MD Ot I10 ESSENTIAL (PRIMARY) HYPERTENSION 03/26/2017 BOOM MILLER MD Ot I25. 10 ATHSCL HEART DISEASE OF [place] CORONARY 03/26/2017 BOOM MILLER MD Ot I48. 91 UNSPECIFIED ATRIAL FIBRILLATION 04/01/2017 BOOM MILLER MD Ot E11. 9 TYPE 2 DIABETES MELLITUS WITHOUT COMPLIC 04/01/2017 BOOM MILLER MD Ot E66. 9 OBESITY, UNSPECIFIED 04/01/2017 BOOM MILLER MD Ot E78. 5 HYPERLIPIDEMIA, UNSPECIFIED 04/01/2017 BOOM MILLER MD Ot G47. 10 HYPERSOMNIA, UNSPECIFIED 04/01/2017 BOOM MILLER MD Ot G89. 29 OTHER CHRONIC PAIN 04/01/2017 BOOM MILLER MD Ot I10 ESSENTIAL (PRIMARY) HYPERTENSION 04/01/2017 BOOM MILLER MD Ot I25. 10 ATHSCL HEART DISEASE OF [place] CORONARY 04/01/2017 BOOM MILLER MD Ot I48. 91 UNSPECIFIED ATRIAL FIBRILLATION 04/01/2017 BOOM MILLER MD Ot R06. 83 SNORING 04/01/2017 BOOM MILLER MD Ot Z68. 35 BODY MASS INDEX (BMI) 35.0-35.9, ADULT 04/01/2017 BOOM MILLER MD Ot Z79. 4 SENIOR CARE (CURRENT) USE OF INSULIN 04/01/2017 BOOM MILLER MD Ot Z79. 82 SENIOR CARE (CURRENT) USE OF ASPIRIN 04/01/2017 BOOM MILLER MD Ot Z79.899 OTHER SENIOR CARE (CURRENT) DRUG THERAPY 04/01/2017 BOOM MILLER MD Ot Z95. 5 PRESENCE OF CORONARY ANGIOPLASTY IMPLANT 04/02/2017 BOOM MILLER MD Ot G47. 33 OBSTRUCTIVE SLEEP APNEA (ADULT) (PEDIATR 04/02/2017 VIVIANA COTTO Ot 250.00 DIAB SHAHRAM WO COMPL, TYPE II OR UNSPEC TY 04/02/2017 VIVIANA COTTO Ot 272.4 HYPERLIPIDEMIA NEC/NOS 04/02/2017 VIVIANA COTTO Ot 401.9 HYPERTENSION NOS 04/02/2017 VIVIANA COTTO Ot 414.00 CORON ATHEROSCLER NOS TYPE VESSEL, NATIV 04/02/2017 VIVIANA COTTO Ot 786.50 CHEST PAIN NOS 04/02/2017 VAN LAWRENCE APRN Ot V76.12 OTH SCREEN MAMMO-MALIGN NEOPLASM OF [place] 04/02/2017 BOMO MILLER MD Ot E78. 5 HYPERLIPIDEMIA, UNSPECIFIED 04/02/2017 BOOM MILLER MD Ot I10 ESSENTIAL (PRIMARY) HYPERTENSION 04/02/2017 BOOM MILLER MD Ot I25. 10 ATHSCL HEART DISEASE OF [place] CORONARY 04/02/2017 BOOM MILLER MD Ot R07. 89 OTHER CHEST PAIN 04/02/2017 Ot E78.5 HYPE RLIPIDEMIA, UNSPECIFIED 04/02/2017 Ot 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 04/02/2017 Ot I10 ESSENT IAL (PRIMARY) HYPERTENSION 04/02/2017 Ot I25.10 ATH SCL HEART DISEASE OF [place] CORONARY 04/02/2017 XANDER ESQUIVEL MD Ot M54.12 RADICULOPATHY, CERVICAL REGION 04/02/2017 ALVIN MARAVILLA, XANDER Topete Ot Z98 .1 ARTHRODESIS STATUS 04/02/2017 ROSALIO MARAVILLA, ILANA French Ot M48.0 2 SPINAL STENOSIS, CERVICAL REGION 04/02/2017 ILANA SANTAMARIA MD Ot M50.3 0 OTHER CERVICAL DISC DEGENERATION, UNSP C 04/02/2017 BOOM MILLER MD Ot E78. 1 PURE HYPERGLYCERIDEMIA 04/02/2017 BOOM MILLER MD Ot E78. 2 MIXED HYPERLIPIDEMIA 04/02/2017 BOOM MILELR MD Ot I11. 0 HYPERTENSIVE HEART DISEASE WITH HEART FA 04/02/2017 BOOM MILLER MD Ot I34. 0 NONRHEUMATIC MITRAL (VALVE) INSUFFICIENC 04/02/2017 BOOM MILLER MD Ot I35. 8 OTHER NONRHEUMATIC AORTIC VALVE DISORDER 04/02/2017 BOOM MILLER MD Ot I51. 7 CARDIOMEGALY 04/02/2017 BOOM MILLER MD Ot R07. 89 OTHER CHEST PAIN 04/02/2017 BOOM MILLER MD Ot E78. 1 PURE HYPERGLYCERIDEMIA 04/02/2017 BOOM MILLER MD Ot E78. 2 MIXED HYPERLIPIDEMIA 04/02/2017 BOOM MILLER MD Ot I11. 9 HYPERTENSIVE HEART DISEASE WITHOUT HEART 04/02/2017 BOOM MILLER MD Ot I34. 0 NONRHEUMATIC MITRAL (VALVE) INSUFFICIENC 04/02/2017 BOOM MILLER MD Ot I35. 8 OTHER NONRHEUMATIC AORTIC VALVE DISORDER 04/02/2017 BOOM MILLER MD Ot R07. 89 OTHER CHEST PAIN 04/02/2017 BOOM MILLER MD Ot G47. 33 OBSTRUCTIVE SLEEP APNEA (ADULT) (PEDIATR 04/02/2017 BOOM MILLER MD Ot E11. 9 TYPE 2 DIABETES MELLITUS WITHOUT COMPLIC 04/02/2017 BOOM MILLER MD Ot E66. 9 OBESITY, UNSPECIFIED 04/02/2017 BOOM MILLER MD Ot E78. 5 HYPERLIPIDEMIA, UNSPECIFIED 04/02/2017 BOOM MILLER MD Ot G47. 10 HYPERSOMNIA, UNSPECIFIED 04/02/2017 BOOM MILLER MD Ot G89. 29 OTHER CHRONIC PAIN 04/02/2017 BOOM MILLER MD Ot I10 ESSENTIAL (PRIMARY) HYPERTENSION 04/02/2017 BOOM MILLER MD Ot I25. 10 ATHSCL HEART DISEASE OF [place] CORONARY 04/02/2017 BOOM MILLER MD Ot I48. 91 UNSPECIFIED ATRIAL FIBRILLATION 04/02/2017 BOOM MILLER MD Ot R06. 83 SNORING 04/02/2017 BOOM MILLER MD Ot Z68. 35 BODY MASS INDEX (BMI) 35.0-35.9, ADULT 04/02/2017 BOOM MILLER MD Ot Z79. 4 FREIGHT CLAIM INVESTIGATOR (CURRENT) USE OF INSULIN 04/02/2017 BOOM MILLER MD Ot Z79. 82 FREIGHT CLAIM INVESTIGATOR (CURRENT) USE OF ASPIRIN 04/02/2017 BOOM MILLER MD Ot Z79.899 OTHER FREIGHT CLAIM INVESTIGATOR (CURRENT) DRUG THERAPY 04/02/2017 BOOM MILLER MD Ot Z95. 5 PRESENCE OF CORONARY ANGIOPLASTY IMPLANT 04/02/2017 BOOM MILLER MD Ot I48. 91 UNSPECIFIED ATRIAL FIBRILLATION 04/03/2017 BOOM MILLER MD Ot G47. 33 OBSTRUCTIVE SLEEP APNEA (ADULT) (PEDIATR 04/04/2017 BOOM MILLER MD Ot G47. 33 OBSTRUCTIVE SLEEP APNEA (ADULT) (PEDIATR 04/04/2017 BOOM MILLER MD Ot R06. 83 SNORING 04/05/2017 BOOM MILLER MD Ot G47. 33 OBSTRUCTIVE SLEEP APNEA (ADULT) (PEDIATR 04/05/2017 BOOM MILLER MD Ot R06. 83 SNORING 04/09/2017 BOOM MILLER MD Ot G47. 33 OBSTRUCTIVE SLEEP APNEA (ADULT) (PEDIATR 04/09/2017 BOOM MILLER MD Ot R06. 83 SNORING 04/20/2017 BOOM MILLER MD Ot E11. 9 TYPE 2 DIABETES MELLITUS WITHOUT COMPLIC 04/20/2017 BOOM MILLER MD Ot E66. 9 OBESITY, UNSPECIFIED 04/20/2017 BOOM MILLER MD Ot E78. 5 HYPERLIPIDEMIA, UNSPECIFIED 04/20/2017 BOOM MILLER MD Ot G47. 10 HYPERSOMNIA, UNSPECIFIED 04/20/2017 BOOM MILLER MD Ot G89. 29 OTHER CHRONIC PAIN 04/20/2017 BOOM MILLER MD Ot I10 ESSENTIAL (PRIMARY) HYPERTENSION 04/20/2017 BOOM MILLER MD Ot I25. 10 ATHSCL HEART DISEASE OF [place] CORONARY 04/20/2017 BOOM MILLER MD Ot I48. 91 UNSPECIFIED ATRIAL FIBRILLATION 04/20/2017 BOOM MILLER MD Ot R06. 83 SNORING 04/20/2017 BOOM MILLER MD Ot Z68. 35 BODY MASS INDEX (BMI) 35.0-35.9, ADULT 04/20/2017 BOOM MILLER MD Ot Z79. 4 FREIGHT CLAIM INVESTIGATOR (CURRENT) USE OF INSULIN 04/20/2017 OBOM MILLER MD Ot Z79. 82 SENIOR CARE (CURRENT) USE OF ASPIRIN 04/20/2017 BOOM MILLER MD Ot Z79.899 OTHER FREIGHT CLAIM INVESTIGATOR (CURRENT) DRUG THERAPY 04/20/2017 BOOM MILLER MD Ot Z95. 5 PRESENCE OF CORONARY ANGIOPLASTY IMPLANT 05/14/2017 BOOM MILLER MD Ot I48. 91 UNSPECIFIED ATRIAL FIBRILLATION 06/27/2017 BOOM MILLER MD Ot I48. 91 UNSPECIFIED ATRIAL FIBRILLATION 06/29/2017 BOOM MILLER MD Ot I48. 91 UNSPECIFIED ATRIAL FIBRILLATION 09/24/2017 VIVIANA COTTO Ot 250.00 DIAB SHAHRAM WO COMPL, TYPE II OR UNSPEC TY 09/24/2017 JEFRY FLOREZ VIVIANA K Ot 272.4 HYPERLIPIDEMIA NEC/NOS 09/24/2017 VIVIANA COTTO Ot 401.9 HYPERTENSION NOS 09/24/2017 VIVIANA COTTO Ot 414.00 CORON ATHEROSCLER NOS TYPE VESSEL, NATIV 09/24/2017 VIVIANA COTTO Ot 786.50 CHEST PAIN NOS 09/24/2017 VAN LAWRENCE APRN Ot V76.12 OTH SCREEN MAMMO-MALIGN NEOPLASM OF [place] 09/24/2017 BOOM MILLER MD Ot E78. 5 HYPERLIPIDEMIA, UNSPECIFIED 09/24/2017 BOOM MILLER MD Ot I10 ESSENTIAL (PRIMARY) HYPERTENSION 09/24/2017 BOOM MILLER MD Ot I25. 10 ATHSCL HEART DISEASE OF [place] CORONARY 09/24/2017 BOOM MILLER MD Ot R07. 89 OTHER CHEST PAIN 09/24/2017 Ot E78.5 HYPE RLIPIDEMIA, UNSPECIFIED 09/24/2017 Ot 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 09/24/2017 Ot I10 ESSENT IAL (PRIMARY) HYPERTENSION 09/24/2017 Ot I25.10 ATH SCL HEART DISEASE OF [place] CORONARY 09/24/2017 XANDER ESQUIVEL MD Ot M54.12 RADICULOPATHY, CERVICAL REGION 09/24/2017 XANDER ESQUIVEL MD Ot Z98 .1 ARTHRODESIS STATUS 09/24/2017 ILANA SANTAMARIA MD Ot M48.0 2 SPINAL STENOSIS, CERVICAL REGION 09/24/2017 ILANA SANTAMARIA MD Ot M50.3 0 OTHER CERVICAL DISC DEGENERATION, UNSP C 09/24/2017 BOOM MILLER MD Ot E78. 1 PURE HYPERGLYCERIDEMIA 09/24/2017 BOOM MILLER MD Ot E78. 2 MIXED HYPERLIPIDEMIA 09/24/2017 BOOM MILLER MD Ot I11. 0 HYPERTENSIVE HEART DISEASE WITH HEART FA 09/24/2017 BOOM MILLER MD Ot I34. 0 NONRHEUMATIC MITRAL (VALVE) INSUFFICIENC 09/24/2017 BOOM MILLER MD Ot I35. 8 OTHER NONRHEUMATIC AORTIC VALVE DISORDER 09/24/2017 BOOM MILLER MD Ot I51. 7 CARDIOMEGALY 09/24/2017 BOOM MILLER MD Ot R07. 89 OTHER CHEST PAIN 09/24/2017 BOOM MILLER MD Ot E78. 1 PURE HYPERGLYCERIDEMIA 09/24/2017 BOOM MILLER MD Ot E78. 2 MIXED HYPERLIPIDEMIA 09/24/2017 BOOM MILLER MD Ot I11. 9 HYPERTENSIVE HEART DISEASE WITHOUT HEART 09/24/2017 BOOM MILLER MD Ot I34. 0 NONRHEUMATIC MITRAL (VALVE) INSUFFICIENC 09/24/2017 BOOM MILLER MD Ot I35. 8 OTHER NONRHEUMATIC AORTIC VALVE DISORDER 09/24/2017 BOOM MILLER MD Ot R07. 89 OTHER CHEST PAIN 09/24/2017 BOOM MILLER MD Ot E11. 9 TYPE 2 DIABETES MELLITUS WITHOUT COMPLIC 09/24/2017 BOOM MILLER MD Ot E66. 9 OBESITY, UNSPECIFIED 09/24/2017 BOOM MILLER MD Ot E78. 5 HYPERLIPIDEMIA, UNSPECIFIED 09/24/2017 BOOM MILLER MD Ot G47. 10 HYPERSOMNIA, UNSPECIFIED 09/24/2017 BOOM MILLER MD Ot G89. 29 OTHER CHRONIC PAIN 09/24/2017 BOOM MILLER MD Ot I10 ESSENTIAL (PRIMARY) HYPERTENSION 09/24/2017 BOOM MILLER MD Ot I25. 10 ATHSCL HEART DISEASE OF [place] CORONARY 09/24/2017 BOOM MILLER MD Ot I48. 91 UNSPECIFIED ATRIAL FIBRILLATION 09/24/2017 BOOM MILLER MD Ot R06. 83 SNORING 09/24/2017 BOOM MILLER MD Ot Z68. 35 BODY MASS INDEX (BMI) 35.0-35.9, ADULT 09/24/2017 BOOM MILLER MD Ot Z79. 4 SENIOR CARE (CURRENT) USE OF INSULIN 09/24/2017 BOOM MILLER MD Ot Z79. 82 FREIGHT CLAIM INVESTIGATOR (CURRENT) USE OF ASPIRIN 09/24/2017 BOOM MILLER MD Ot Z79.899 OTHER FREIGHT CLAIM INVESTIGATOR (CURRENT) DRUG THERAPY 09/24/2017 BOOM MILLER MD Ot Z95. 5 PRESENCE OF CORONARY ANGIOPLASTY IMPLANT 09/24/2017 BOOM MILLER MD Ot I48. 91 UNSPECIFIED ATRIAL FIBRILLATION 09/24/2017 GEE AMADO MD Ot Z12.31 ENCNTR SCREEN MAMMOGRAM FOR MALIGNANT NE 09/24/2017 BOOM MILLER MD Ot E78. 1 PURE HYPERGLYCERIDEMIA 09/24/2017 BOOM MILLER MD Ot E78. 2 MIXED HYPERLIPIDEMIA 09/24/2017 BOOM MILLER MD Ot I11. 0 HYPERTENSIVE HEART DISEASE WITH HEART FA 09/24/2017 BOOM MILLER MD Ot I34. 0 NONRHEUMATIC MITRAL (VALVE) INSUFFICIENC 09/24/2017 BOOM MILLER MD Ot I35. 8 OTHER NONRHEUMATIC AORTIC VALVE DISORDER 09/24/2017 BOOM MILLER MD Ot I51. 7 CARDIOMEGALY 09/24/2017 BOOM MILLER MD Ot R07. 89 OTHER CHEST PAIN 01/14/2018 BOOM MILLER MD Ot E11. 9 TYPE 2 DIABETES MELLITUS WITHOUT COMPLIC 01/14/2018 BOOM MILLER MD Ot E66. 9 OBESITY, UNSPECIFIED 01/14/2018 BOOM MILLER MD Ot E78. 5 HYPERLIPIDEMIA, UNSPECIFIED 01/14/2018 BOOM MILLER MD Ot G47. 10 HYPERSOMNIA, UNSPECIFIED 01/14/2018 BOOM MILLER MD Ot G89. 29 OTHER CHRONIC PAIN 01/14/2018 BOOM MILLER MD Ot I10 ESSENTIAL (PRIMARY) HYPERTENSION 01/14/2018 BOOM MILLER MD Ot I25. 10 ATHSCL HEART DISEASE OF [place] CORONARY 01/14/2018 BOOM MILLER MD Ot I48. 91 UNSPECIFIED ATRIAL FIBRILLATION 01/14/2018 BOOM MILLER MD Ot R06. 83 SNORING 01/14/2018 BOOM MILLER MD Ot Z68. 35 BODY MASS INDEX (BMI) 35.0-35.9, ADULT 01/14/2018 BOOM MILLER MD Ot Z79. 4 SENIOR CARE (CURRENT) USE OF INSULIN 01/14/2018 BOOM MILLER MD Ot Z79. 82 SENIOR CARE (CURRENT) USE OF ASPIRIN 01/14/2018 BOOM MILLER MD Ot Z79.899 OTHER SENIOR CARE (CURRENT) DRUG THERAPY 01/14/2018 BOOM MILLER MD Ot Z95. 5 PRESENCE OF CORONARY ANGIOPLASTY IMPLANT 01/14/2018 BOOM MILLER MD Ot E11. 9 TYPE 2 DIABETES MELLITUS WITHOUT COMPLIC 01/14/2018 BOOM MILLER MD Ot E66. 9 OBESITY, UNSPECIFIED 01/14/2018 BOOM MILLER MD Ot E78. 5 HYPERLIPIDEMIA, UNSPECIFIED 01/14/2018 BOOM MILLER MD Ot G47. 10 HYPERSOMNIA, UNSPECIFIED 01/14/2018 BOOM MILLER MD Ot G89. 29 OTHER CHRONIC PAIN 01/14/2018 BOOM MILLER MD Ot I10 ESSENTIAL (PRIMARY) HYPERTENSION 01/14/2018 BOOM MILLER MD Ot I25. 10 ATHSCL HEART DISEASE OF [place] CORONARY 01/14/2018 BOOM MILLER MD Ot I48. 91 UNSPECIFIED ATRIAL FIBRILLATION 01/14/2018 BOOM MILLER MD Ot R06. 83 SNORING 01/14/2018 BOOM MILLER MD Ot Z68. 35 BODY MASS INDEX (BMI) 35.0-35.9, ADULT 01/14/2018 BOOM MILLER MD Ot Z79. 4 SENIOR CARE (CURRENT) USE OF INSULIN 01/14/2018 BOOM MILLER MD Ot Z79. 82 FREIGHT CLAIM INVESTIGATOR (CURRENT) USE OF ASPIRIN 01/14/2018 BOOM MILLER MD Ot Z79.899 OTHER FREIGHT CLAIM INVESTIGATOR (CURRENT) DRUG THERAPY 01/14/2018 BOOM MILLER MD Ot Z95. 5 PRESENCE OF CORONARY ANGIOPLASTY IMPLANT 02/05/2018 BOOM MILLER MD Ot I48. 0 PAROXYSMAL ATRIAL FIBRILLATION 02/05/2018 BOOM MILLER MD Ot I48. 0 PAROXYSMAL ATRIAL FIBRILLATION 02/07/2018 BOOM MILLER MD Ot I48. 0 PAROXYSMAL ATRIAL FIBRILLATION 02/07/2018 BOOM MILLER MD Ot Z51. 81 ENCOUNTER FOR THERAPEUTIC DRUG LEVEL MON 02/07/2018 BOOM MILLER MD Ot Z79. 01 FREIGHT CLAIM INVESTIGATOR (CURRENT) USE OF ANTICOAGULANT 02/28/2018 BOOM MILLER MD Ot I48. 0 PAROXYSMAL ATRIAL FIBRILLATION 02/28/2018 BOOM MILLER MD Ot Z51. 81 ENCOUNTER FOR THERAPEUTIC DRUG LEVEL MON 02/28/2018 BOOM MILLER MD Ot Z79. 01 FREIGHT CLAIM INVESTIGATOR (CURRENT) USE OF ANTICOAGULANT 03/02/2018 BOOM MILLER MD Ot I48. 0 PAROXYSMAL ATRIAL FIBRILLATION 03/02/2018 BOOM MILLER MD, Ot Z51. 81 ENCOUNTER FOR THERAPEUTIC DRUG LEVEL MON 03/09/2018 VIVIANA COTTO Ot 250.00 DIAB SHAHRAM WO COMPL, TYPE II OR UNSPEC TY 03/09/2018 VIVIANA COTTO Ot 272.4 HYPERLIPIDEMIA NEC/NOS 03/09/2018 VIVIANA COTTO Ot 401.9 HYPERTENSION NOS 03/09/2018 VIVIANA COTTO Ot 414.00 CORON ATHEROSCLER NOS TYPE VESSEL, NATIV 03/09/2018 VIVIANA COTTO Ot 786.50 CHEST PAIN NOS 03/09/2018 MELINDAVAN A TEAM GUIDE Ot V76.12 OTH SCREEN MAMMO-MALIGN NEOPLASM OF [place] 03/09/2018 BOOM MILLER MD Ot E78. 5 HYPERLIPIDEMIA, UNSPECIFIED 03/09/2018 BOOM MILLER MD Ot I10 ESSENTIAL (PRIMARY) HYPERTENSION 03/09/2018 BOOM MILLER MD Ot I25. 10 ATHSCL HEART DISEASE OF [place] CORONARY 03/09/2018 BOOM MILLER MD Ot R07. 89 OTHER CHEST PAIN 03/09/2018 Ot E78.5 HYPE RLIPIDEMIA, UNSPECIFIED 03/09/2018 Ot 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 03/09/2018 Ot I10 ESSENT IAL (PRIMARY) HYPERTENSION 03/09/2018 Ot I25.10 ATH SCL HEART DISEASE OF [place] CORONARY 03/09/2018 XANDER ESQUIVEL MD Ot M54.12 RADICULOPATHY, CERVICAL REGION 03/09/2018 XANDER ESQUIVEL MD Ot Z98 .1 ARTHRODESIS STATUS 03/09/2018 ILANA SANTAMARIA MD Ot M48.0 2 SPINAL STENOSIS, CERVICAL REGION 03/09/2018 ILANA SANTAMARIA MD Ot M50.3 0 OTHER CERVICAL DISC DEGENERATION, UNSP C 03/09/2018 BOOM MILLER MD Ot E78. 1 PURE HYPERGLYCERIDEMIA 03/09/2018 BOOM MILLER MD Ot E78. 2 MIXED HYPERLIPIDEMIA 03/09/2018 BOOM MILLER MD Ot I11. 0 HYPERTENSIVE HEART DISEASE WITH HEART FA 03/09/2018 BOOM MILLER MD Ot I34. 0 NONRHEUMATIC MITRAL (VALVE) INSUFFICIENC 03/09/2018 BOOM MILLER MD Ot I35. 8 OTHER NONRHEUMATIC AORTIC VALVE DISORDER 03/09/2018 BOOM MILLER MD Ot I51. 7 CARDIOMEGALY 03/09/2018 BOOM MILLER MD Ot R07. 89 OTHER CHEST PAIN 03/09/2018 BOOM MILLER MD Ot E78. 1 PURE HYPERGLYCERIDEMIA 03/09/2018 BOOM MILLER MD Ot E78. 2 MIXED HYPERLIPIDEMIA 03/09/2018 BOOM MILLER MD Ot I11. 9 HYPERTENSIVE HEART DISEASE WITHOUT HEART 03/09/2018 BOOM MILLER MD Ot I34. 0 NONRHEUMATIC MITRAL (VALVE) INSUFFICIENC 03/09/2018 BOOM MILLER MD Ot I35. 8 OTHER NONRHEUMATIC AORTIC VALVE DISORDER 03/09/2018 BOOM MILLER MD Ot R07. 89 OTHER CHEST PAIN 03/09/2018 BOOM MILLER MD Ot E11. 9 TYPE 2 DIABETES MELLITUS WITHOUT COMPLIC 03/09/2018 BOOM MILLER MD Ot E66. 9 OBESITY, UNSPECIFIED 03/09/2018 BOOM MILLER MD Ot E78. 5 HYPERLIPIDEMIA, UNSPECIFIED 03/09/2018 BOOM MILLER MD Ot G47. 10 HYPERSOMNIA, UNSPECIFIED 03/09/2018 BOOM MILLER MD Ot G89. 29 OTHER CHRONIC PAIN 03/09/2018 BOOM MILLER MD Ot I10 ESSENTIAL (PRIMARY) HYPERTENSION 03/09/2018 BOOM MILLER MD Ot I25. 10 ATHSCL HEART DISEASE OF [place] CORONARY 03/09/2018 BOOM MILLER MD Ot I48. 91 UNSPECIFIED ATRIAL FIBRILLATION 03/09/2018 BOOM MILLER MD Ot R06. 83 SNORING 03/09/2018 BOOM MILLER MD Ot Z68. 35 BODY MASS INDEX (BMI) 35.0-35.9, ADULT 03/09/2018 BOOM MILLER MD Ot Z79. 4 SENIOR CARE (CURRENT) USE OF INSULIN 03/09/2018 BOOM MILLER MD Ot Z79. 82 FREIGHT CLAIM INVESTIGATOR (CURRENT) USE OF ASPIRIN 03/09/2018 BOOM MILLER MD Ot Z79.899 OTHER SENIOR CARE (CURRENT) DRUG THERAPY 03/09/2018 BOOM MILLER MD Ot Z95. 5 PRESENCE OF CORONARY ANGIOPLASTY IMPLANT 03/09/2018 BOOM MILLER MD Ot I48. 91 UNSPECIFIED ATRIAL FIBRILLATION 03/09/2018 BOOM MILLER MD Ot I48. 0 PAROXYSMAL ATRIAL FIBRILLATION 03/09/2018 BOOM MILLER MD Ot Z51. 81 ENCOUNTER FOR THERAPEUTIC DRUG LEVEL MON 03/09/2018 BOOM MILLER MD, Ot Z79. 01 FREIGHT CLAIM INVESTIGATOR (CURRENT) USE OF ANTICOAGULANT 03/09/2018 BOOM MILLER MD Ot E11. 9 TYPE 2 DIABETES MELLITUS WITHOUT COMPLIC 03/09/2018 BOOM MILLER MD Ot E66. 9 OBESITY, UNSPECIFIED 03/09/2018 BOOM MILLER MD Ot E78. 5 HYPERLIPIDEMIA, UNSPECIFIED 03/09/2018 BOOM MILLER MD Ot G47. 33 OBSTRUCTIVE SLEEP APNEA (ADULT) (PEDIATR 03/09/2018 BOOM MILLER MD Ot G89. 29 OTHER CHRONIC PAIN 03/09/2018 BOOM MILLER MD Ot I10 ESSENTIAL (PRIMARY) HYPERTENSION 03/09/2018 BOOM MILLER MD Ot I25. 10 ATHSCL HEART DISEASE OF [place] CORONARY 03/09/2018 BOOM MILLER MD Ot I35. 0 NONRHEUMATIC AORTIC (VALVE) STENOSIS 03/09/2018 BOOM MILLER MD Ot I48. 0 PAROXYSMAL ATRIAL FIBRILLATION 03/09/2018 BOOM MILLER MD Ot R07. 9 CHEST PAIN, UNSPECIFIED 03/09/2018 BOOM MILLER MD Ot Z68. 37 BODY MASS INDEX (BMI) 37.0-37.9, ADULT 03/09/2018 BOOM MILLER MD Ot Z79. 4 FREIGHT CLAIM INVESTIGATOR (CURRENT) USE OF INSULIN 03/09/2018 BOOM MILLER MD Ot Z79.899 OTHER FREIGHT CLAIM INVESTIGATOR (CURRENT) DRUG THERAPY 03/09/2018 BOOM MILLER MD Ot Z87.891 PERSONAL HISTORY OF NICOTINE DEPENDENCE 03/09/2018 BOOM MILLER MD Ot Z95. 5 PRESENCE OF CORONARY ANGIOPLASTY IMPLANT 03/11/2018 BOOM MILLER MD Ot E11. 9 TYPE 2 DIABETES MELLITUS WITHOUT COMPLIC 03/11/2018 BOOM MILLER MD Ot E66. 9 OBESITY, UNSPECIFIED 03/11/2018 BOOM MILLER MD Ot E78. 5 HYPERLIPIDEMIA, UNSPECIFIED 03/11/2018 BOOM MILLER MD Ot G47. 33 OBSTRUCTIVE SLEEP APNEA (ADULT) (PEDIATR 03/11/2018 BOOM MILLER MD Ot G89. 29 OTHER CHRONIC PAIN 03/11/2018 BOOM MILLER MD Ot I10 ESSENTIAL (PRIMARY) HYPERTENSION 03/11/2018 BOOM MILLER MD Ot I25. 10 ATHSCL HEART DISEASE OF [place] CORONARY 03/11/2018 BOOM MILLER MD Ot I35. 0 NONRHEUMATIC AORTIC (VALVE) STENOSIS 03/11/2018 BOOM MILLER MD Ot I48. 0 PAROXYSMAL ATRIAL FIBRILLATION 03/11/2018 BOOM MILLER MD Ot R07. 9 CHEST PAIN, UNSPECIFIED 03/11/2018 BOOM MILLER MD Ot Z68. 37 BODY MASS INDEX (BMI) 37.0-37.9, ADULT 03/11/2018 BOOM MILLER MD Ot Z79. 4 SENIOR CARE (CURRENT) USE OF INSULIN 03/11/2018 BOOM MILLER MD Ot Z79.899 OTHER SENIOR CARE (CURRENT) DRUG THERAPY 03/11/2018 BOOM MILLER MD, Ot Z87.891 PERSONAL HISTORY OF NICOTINE DEPENDENCE 03/11/2018 BOOM MILLER MD Ot Z95. 5 PRESENCE OF CORONARY ANGIOPLASTY IMPLANT 03/31/2018 BOOM MILLER MD Ot Z79. 01 SENIOR CARE (CURRENT) USE OF ANTICOAGULANT 04/18/2018 BOOM MILLER MD Ot Z79. 01 FREIGHT CLAIM INVESTIGATOR (CURRENT) USE OF ANTICOAGULANT 05/05/2018 BOOM MILLER MD Ot I48. 0 PAROXYSMAL ATRIAL FIBRILLATION 05/05/2018 BOOM MILLER MD Ot Z79. 01 SENIOR CARE (CURRENT) USE OF ANTICOAGULANT 05/30/2018 BOOM MILLER MD Ot I48. 0 PAROXYSMAL ATRIAL FIBRILLATION 05/30/2018 BOOM MILLER MD Ot Z79. 01 SENIOR CARE (CURRENT) USE OF ANTICOAGULANT 06/06/2018 BOOM MILLER MD Ot I48. 0 PAROXYSMAL ATRIAL FIBRILLATION 06/06/2018 BOOM MILLER MD Ot Z79. 01 SENIOR CARE (CURRENT) USE OF ANTICOAGULANT 07/11/2018 BOOM MILLER MD Ot I48. 0 PAROXYSMAL ATRIAL FIBRILLATION 07/11/2018 BOOM MILLER MD Ot Z79. 01 SENIOR CARE (CURRENT) USE OF ANTICOAGULANT 07/12/2018 BOOM MILLER MD Ot I48. 0 PAROXYSMAL ATRIAL FIBRILLATION 07/12/2018 BOOM MILLER MD Ot Z79. 01 FREIGHT CLAIM INVESTIGATOR (CURRENT) USE OF ANTICOAGULANT 07/12/2018 MICHAEL DE LA GARZA MD Ot A41. 9 SEPSIS, UNSPECIFIED ORGANISM 07/12/2018 MICHAEL DE LA GARZA MD Ot E11. 9 TYPE 2 DIABETES MELLITUS WITHOUT COMPLIC 07/12/2018 MICHAEL DE LA GARZA MD Ot E78. 5 HYPERLIPIDEMIA, UNSPECIFIED 07/12/2018 MICHAEL DE LA GARZA MD Ot I11. 0 HYPERTENSIVE HEART DISEASE WITH HEART FA 07/12/2018 MICHAEL DE LA GARZA MD Ot I21. A1 MYOCARDIAL INFARCTION TYPE 2 07/12/2018 MICHAEL DE LA GARZA MD Ot I25. 10 ATHSCL HEART DISEASE OF [place] CORONARY 07/12/2018 MICHAEL DE LA GARZA MD Ot I48. 91 UNSPECIFIED ATRIAL FIBRILLATION 07/12/2018 MICHAEL DE LA GARZA MD Ot I50. 30 UNSPECIFIED DIASTOLIC (CONGESTIVE) HEART 07/12/2018 MICHAEL DE LA GARZA MD Ot I70. 0 ATHEROSCLEROSIS OF [place] 07/12/2018 MICHAEL DE LA GARZA MD Ot J18. 9 PNEUMONIA, UNSPECIFIED ORGANISM 07/12/2018 MICHAEL DE LA GARZA MD Ot K21. 9 GASTRO-ESOPHAGEAL REFLUX DISEASE WITHOUT 07/12/2018 MICHAEL DE LA GARZA MD Ot N39. 0 URINARY TRACT INFECTION, SITE NOT SPECIF 07/12/2018 MICHAEL DE LA GARZA MD Ot R07. 9 CHEST PAIN, UNSPECIFIED 07/12/2018 MICHAEL DE LA GARZA MD Ot R50. 9 FEVER, UNSPECIFIED 07/12/2018 MICHAEL DE LA GARZA MD Ot Z79. 01 FREIGHT CLAIM INVESTIGATOR (CURRENT) USE OF ANTICOAGULANT 07/12/2018 MICHAEL DE LA GARZA MD Ot Z79. 02 SENIOR CARE (CURRENT) USE OF ANTITHROMBOTI 07/12/2018 MICHAEL DE LA GARZA MD Ot Z79. 4 FREIGHT CLAIM INVESTIGATOR (CURRENT) USE OF INSULIN 07/12/2018 MICHAEL DE LA GARZA MD Ot Z79. 82 FREIGHT CLAIM INVESTIGATOR (CURRENT) USE OF ASPIRIN 07/12/2018 MICHAEL DE LA GARZA MD Ot Z87. 19 PERSONAL HISTORY OF OTHER DISEASES OF TH 07/12/2018 MICHAEL DE LA GARZA MD Ot Z87.891 PERSONAL HISTORY OF NICOTINE DEPENDENCE 07/12/2018 MICHAEL DE LA GARZA MD Ot Z88. 5 ALLERGY STATUS TO NARCOTIC AGENT STATUS 07/12/2018 MICHAEL DE LA GARZA MD Ot Z95. 5 PRESENCE OF CORONARY ANGIOPLASTY IMPLANT 07/14/2018 MICHAEL DE LA GARZA MD Ot A41. 9 SEPSIS, UNSPECIFIED ORGANISM 07/14/2018 MICHAEL DE LA GARZA MD Ot E11. 9 TYPE 2 DIABETES MELLITUS WITHOUT COMPLIC 07/14/2018 MICHAEL DE LA GARZA MD Ot E78. 5 HYPERLIPIDEMIA, UNSPECIFIED 07/14/2018 MICHAEL DE LA GARZA MD Ot I11. 0 HYPERTENSIVE HEART DISEASE WITH HEART FA 07/14/2018 MICHAEL DE LA GARZA MD Ot I21. A1 MYOCARDIAL INFARCTION TYPE 2 07/14/2018 MICHAEL DE LA GARZA MD Ot I25. 10 ATHSCL HEART DISEASE OF [place] CORONARY 07/14/2018 MICHAEL DE LA GARZA MD Ot I48. 91 UNSPECIFIED ATRIAL FIBRILLATION 07/14/2018 MICHAEL DE LA GARZA MD Ot I50. 30 UNSPECIFIED DIASTOLIC (CONGESTIVE) HEART 07/14/2018 MICHAEL DE LA GARZA MD Ot I70. 0 ATHEROSCLEROSIS OF [place] 07/14/2018 MICHAEL DE LA GARZA MD Ot J18. 9 PNEUMONIA, UNSPECIFIED ORGANISM 07/14/2018 MICHAEL DE LA GARZA MD Ot K21. 9 GASTRO-ESOPHAGEAL REFLUX DISEASE WITHOUT 07/14/2018 MICHAEL DE LA GARZA MD Ot N39. 0 URINARY TRACT INFECTION, SITE NOT SPECIF 07/14/2018 MICHAEL DE LA GARZA MD Ot R07. 9 CHEST PAIN, UNSPECIFIED 07/14/2018 MICHAEL DE LA GARZA MD Ot R50. 9 FEVER, UNSPECIFIED 07/14/2018 MICHAEL DE LA GARZA MD, Ot Z79. 01 FREIGHT CLAIM INVESTIGATOR (CURRENT) USE OF ANTICOAGULANT 07/14/2018 MICHAEL DE LA GARZA MD, Ot Z79. 02 SENIOR CARE (CURRENT) USE OF ANTITHROMBOTI 07/14/2018 MICHAEL DE LA GARZA MD, Ot Z79. 4 SENIOR CARE (CURRENT) USE OF INSULIN 07/14/2018 MICHAEL DE LA GARZA MD, Ot Z79. 82 FREIGHT CLAIM INVESTIGATOR (CURRENT) USE OF ASPIRIN 07/14/2018 MICHAEL DE LA GARZA MD, Ot Z87. 19 PERSONAL HISTORY OF OTHER DISEASES OF TH 07/14/2018 MICHAEL DE LA GARZA MD, Ot Z87.891 PERSONAL HISTORY OF NICOTINE DEPENDENCE 07/14/2018 MICHAEL DE LA GARZA MD, Ot Z88. 5 ALLERGY STATUS TO NARCOTIC AGENT STATUS 07/14/2018 MICHAEL DE LA GARZA MD, Ot Z95. 5 PRESENCE OF CORONARY ANGIOPLASTY IMPLANT 07/23/2018 Jaime GARSIA MD Ot E11 .9 TYPE 2 DIABETES MELLITUS WITHOUT COMPLIC 07/23/2018 Jaime GARSIA MD Ot E66 .9 OBESITY, UNSPECIFIED 07/23/2018 Jaime GARSIA MD Ot E78.00 PURE HYPERCHOLESTEROLEMIA, UNSPECIFIED 07/23/2018 Jaime GARSIA MD Ot E83.39 OTHER DISORDERS OF PHOSPHORUS METABOLISM 07/23/2018 Jaime GARSIA MD Ot E87 .5 HYPERKALEMIA 07/23/2018 Jaime GARSIA MD Ot F41 .9 ANXIETY DISORDER, UNSPECIFIED 07/23/2018 Jaime GARSIA MD Ot I12 .9 HYPERTENSIVE CHRONIC KIDNEY DISEASE W ST 07/23/2018 Jaime GARSIA MD, Ot I25.10 ATHSCL HEART DISEASE OF [place] CORONARY 07/23/2018 Jaime GARSIA MD Ot I48 .0 PAROXYSMAL ATRIAL FIBRILLATION 07/23/2018 Jaime GARSIA MD Ot I95 .2 HYPOTENSION DUE TO DRUGS 07/23/2018 Jaime GARSIA MD Ot K21 .9 GASTRO-ESOPHAGEAL REFLUX DISEASE WITHOUT 07/23/2018 Jaime GARSIA MD Ot M54 .9 DORSALGIA, UNSPECIFIED 07/23/2018 Jaime GARSIA MD, Ot N18 .9 CHRONIC KIDNEY DISEASE, UNSPECIFIED 07/23/2018 Jaime GARSIA MD, Ot N28 .9 DISORDER OF KIDNEY AND URETER, UNSPECIFI 07/23/2018 Jaime GARSIA MD Ot R00 .1 BRADYCARDIA, UNSPECIFIED 07/23/2018 Jaime GARSIA MD Ot R57 .0 CARDIOGENIC SHOCK 07/23/2018 Jaime GARSIA MD, Ot Z68.38 BODY MASS INDEX (BMI) 38.0-38.9, ADULT 07/23/2018 Jaime GARSIA MD Ot Z79.01 SENIOR CARE (CURRENT) USE OF ANTICOAGULANT 07/23/2018 Jaime GARSIA MD, Ot Z87.19 PERSONAL HISTORY OF OTHER DISEASES OF TH 07/23/2018 Jaime GARSIA MD, Ot Z87.891 PERSONAL HISTORY OF NICOTINE DEPENDENCE 07/23/2018 Jaime GARSIA MD Ot Z95 .5 PRESENCE OF CORONARY ANGIOPLASTY IMPLANT 07/24/2018 Jaime GARSIA MD Ot E11 .9 TYPE 2 DIABETES MELLITUS WITHOUT COMPLIC 07/24/2018 Jaime GARSIA MD Ot E66 .9 OBESITY, UNSPECIFIED 07/24/2018 Jaime GARSIA MD Ot E78.00 PURE HYPERCHOLESTEROLEMIA, UNSPECIFIED 07/24/2018 Jaime GARSIA MD Ot E83.39 OTHER DISORDERS OF PHOSPHORUS METABOLISM 07/24/2018 Jaime GARSIA MD Ot E87 .5 HYPERKALEMIA 07/24/2018 Jaime GARSIA MD Ot F41 .9 ANXIETY DISORDER, UNSPECIFIED 07/24/2018 Jaime GARSIA MD Ot I12 .9 HYPERTENSIVE CHRONIC KIDNEY DISEASE W ST 07/24/2018 Jaime GARSIA MD Ot I25.10 ATHSCL HEART DISEASE OF [place] CORONARY 07/24/2018 Jaime GARSIA MD Ot I48 .0 PAROXYSMAL ATRIAL FIBRILLATION 07/24/2018 KHALID MD, M RENEE Ot I95 .2 HYPOTENSION DUE TO DRUGS 07/24/2018 Jaime GARSIA MD Ot K21 .9 GASTRO-ESOPHAGEAL REFLUX DISEASE WITHOUT 07/24/2018 Jaime GARSIA MD Ot M54 .9 DORSALGIA, UNSPECIFIED 07/24/2018 Jaime GARSIA MD, Ot N18 .9 CHRONIC KIDNEY DISEASE, UNSPECIFIED 07/24/2018 Jaime GARSIA MD, Ot N28 .9 DISORDER OF KIDNEY AND URETER, UNSPECIFI 07/24/2018 Jaime GARSIA MD Ot R00 .1 BRADYCARDIA, UNSPECIFIED 07/24/2018 Jaime GARSIA MD, Ot R57 .0 CARDIOGENIC SHOCK 07/24/2018 Jaime GARSIA MD Ot Z68.38 BODY MASS INDEX (BMI) 38.0-38.9, ADULT 07/24/2018 Jaime GARSIA MD Ot 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 07/24/2018 Jaime GARSIA MD Ot Z87.19 PERSONAL HISTORY OF OTHER DISEASES OF TH 07/24/2018 Jaime GARSIA MD, Ot Z87.891 PERSONAL HISTORY OF NICOTINE DEPENDENCE 07/24/2018 Jaime GARSIA MD Ot Z95 .5 PRESENCE OF CORONARY ANGIOPLASTY IMPLANT 07/24/2018 Jaime GARSIA MD Ot E11 .9 TYPE 2 DIABETES MELLITUS WITHOUT COMPLIC 07/24/2018 Jaime GARSIA MD Ot E66 .9 OBESITY, UNSPECIFIED 07/24/2018 Jaime GARSIA MD Ot E78.00 PURE HYPERCHOLESTEROLEMIA, UNSPECIFIED 07/24/2018 Jaime GARSIA MD Ot E83.39 OTHER DISORDERS OF PHOSPHORUS METABOLISM 07/24/2018 Jaime GARSIA MD Ot E87 .5 HYPERKALEMIA 07/24/2018 Jaime GARSIA MD, Ot F41 .9 ANXIETY DISORDER, UNSPECIFIED 07/24/2018 Jaime GARSIA MD Ot I12 .9 HYPERTENSIVE CHRONIC KIDNEY DISEASE W ST 07/24/2018 KHALID MD, M RENEE Ot I25.10 ATHSCL HEART DISEASE OF [place] CORONARY 07/24/2018 Jaime GARSIA MD Ot I48 .0 PAROXYSMAL ATRIAL FIBRILLATION 07/24/2018 Jaime GARSIA MD Ot I95 .2 HYPOTENSION DUE TO DRUGS 07/24/2018 Jaime GARSIA MD, Ot K21 .9 GASTRO-ESOPHAGEAL REFLUX DISEASE WITHOUT 07/24/2018 Jaime GARSIA MD, Ot M54 .9 DORSALGIA, UNSPECIFIED 07/24/2018 Jaime GARSIA MD, Ot N18 .9 CHRONIC KIDNEY DISEASE, UNSPECIFIED 07/24/2018 Jaime GARSIA MD, Ot N28 .9 DISORDER OF KIDNEY AND URETER, UNSPECIFI 07/24/2018 Jaime GARSIA MD, Ot R00 .1 BRADYCARDIA, UNSPECIFIED 07/24/2018 Jaime GARSIA MD Ot R57 .0 CARDIOGENIC SHOCK 07/24/2018 Jaime GARSIA MD, Ot Z68.38 BODY MASS INDEX (BMI) 38.0-38.9, ADULT 07/24/2018 Jaime GARSIA MD Ot 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 07/24/2018 Jaime GARSIA MD, Ot Z87.19 PERSONAL HISTORY OF OTHER DISEASES OF TH 07/24/2018 Jaime GARSIA MD Ot Z87.891 PERSONAL HISTORY OF NICOTINE DEPENDENCE 07/24/2018 Jaime GARSIA MD Ot Z95 .5 PRESENCE OF CORONARY ANGIOPLASTY IMPLANT 07/24/2018 Jaime GARSIA MD Ot E11 .9 TYPE 2 DIABETES MELLITUS WITHOUT COMPLIC 07/24/2018 Jaime GARSIA MD Ot E66 .9 OBESITY, UNSPECIFIED 07/24/2018 Jaime GARSIA MD, Ot E78.00 PURE HYPERCHOLESTEROLEMIA, UNSPECIFIED 07/24/2018 Jaime GARSIA MD, Ot E78 .5 HYPERLIPIDEMIA, UNSPECIFIED 07/24/2018 Jaime GARSIA MD Ot E83.39 OTHER DISORDERS OF PHOSPHORUS METABOLISM 07/24/2018 Jaime GARSIA MD, Ot E87 .5 HYPERKALEMIA 07/24/2018 Jaime GARSIA MD Ot F41 .9 ANXIETY DISORDER, UNSPECIFIED 07/24/2018 Jaime GARSIA MD, Ot G47.33 OBSTRUCTIVE SLEEP APNEA (ADULT) (PEDIATR 07/24/2018 Jaime GARSIA MD, Ot G89.29 OTHER CHRONIC PAIN 07/24/2018 Jaime GARSIA MD Ot I12 .9 HYPERTENSIVE CHRONIC KIDNEY DISEASE W ST 07/24/2018 Jaime GARSIA MD, Ot I25.10 ATHSCL HEART DISEASE OF [place] CORONARY 07/24/2018 Jaime GARSIA MD, Ot I48 .0 PAROXYSMAL ATRIAL FIBRILLATION 07/24/2018 Jaime GARSIA MD, Ot I49 .5 SICK SINUS SYNDROME 07/24/2018 Jaime GARSIA MD, Ot I95 .2 HYPOTENSION DUE TO DRUGS 07/24/2018 Jaime GARSIA MD, Ot K21 .9 GASTRO-ESOPHAGEAL REFLUX DISEASE WITHOUT 07/24/2018 Jaime GARSIA MD Ot M54 .9 DORSALGIA, UNSPECIFIED 07/24/2018 Jaime GARSIA MD Ot N18 .9 CHRONIC KIDNEY DISEASE, UNSPECIFIED 07/24/2018 Jaime GARSIA MD, Ot N28 .9 DISORDER OF KIDNEY AND URETER, UNSPECIFI 07/24/2018 Jaime GARSIA MD Ot R57 .0 CARDIOGENIC SHOCK 07/24/2018 Jaime GARSIA MD, Ot T82.855D STENOSIS OF CORONARY ARTERY STENT, SUBSE 07/24/2018 Jaime GARSIA MD, Ot Z68.38 BODY MASS INDEX (BMI) 38.0-38.9, ADULT 07/24/2018 Jaime GARSIA MD, Ot Z79.01 SENIOR CARE (CURRENT) USE OF ANTICOAGULANT 07/24/2018 Jaime GARSIA MD, Ot Z79 .4 FREIGHT CLAIM INVESTIGATOR (CURRENT) USE OF INSULIN 07/24/2018 Jaime GARSIA MD, Ot Z87.19 PERSONAL HISTORY OF OTHER DISEASES OF TH 07/24/2018 Jaime GARSIA MD, Ot Z87.891 PERSONAL HISTORY OF NICOTINE DEPENDENCE 07/24/2018 ADY MARAVILLA, Jaime DURAN Ot Z95 .5 PRESENCE OF CORONARY ANGIOPLASTY IMPLANT 12/15/2018 MICHAEL DE LA GARZA MD Ot A41. 9 SEPSIS, UNSPECIFIED ORGANISM 12/15/2018 MICHAEL DE LA GARZA MD Ot E11. 9 TYPE 2 DIABETES MELLITUS WITHOUT COMPLIC 12/15/2018 MICHAEL DE LA GARZA MD Ot E78. 5 HYPERLIPIDEMIA, UNSPECIFIED 12/15/2018 MICHAEL DE LA GARZA MD Ot I11. 0 HYPERTENSIVE HEART DISEASE WITH HEART FA 12/15/2018 MICHAEL DE LA GARZA MD Ot I21. A1 MYOCARDIAL INFARCTION TYPE 2 12/15/2018 MICHAEL DE LA GARZA MD Ot I25. 10 ATHSCL HEART DISEASE OF [place] CORONARY 12/15/2018 MICHAEL DE LA GARZA MD Ot I48. 91 UNSPECIFIED ATRIAL FIBRILLATION 12/15/2018 MICHAEL DE LA GARZA MD Ot I50. 30 UNSPECIFIED DIASTOLIC (CONGESTIVE) HEART 12/15/2018 MICHAEL DE LA GARZA MD Ot I70. 0 ATHEROSCLEROSIS OF [place] 12/15/2018 MICHAEL DE LA GARZA MD Ot J18. 9 PNEUMONIA, UNSPECIFIED ORGANISM 12/15/2018 MICHAEL DE LA GARZA MD Ot K21. 9 GASTRO-ESOPHAGEAL REFLUX DISEASE WITHOUT 12/15/2018 MICHAEL DE LA GARZA MD Ot N39. 0 URINARY TRACT INFECTION, SITE NOT SPECIF 12/15/2018 MICHAEL DE LA GARZA MD Ot R50. 9 FEVER, UNSPECIFIED 12/15/2018 MICHAEL DE LA GARZA MD Ot Z79. 01 SENIOR CARE (CURRENT) USE OF ANTICOAGULANT 12/15/2018 MICHAEL DE LA GARZA MD Ot Z79. 02 FREIGHT CLAIM INVESTIGATOR (CURRENT) USE OF ANTITHROMBOTI 12/15/2018 MCIHAEL DE LA GARZA MD Ot Z79. 4 SENIOR CARE (CURRENT) USE OF INSULIN 12/15/2018 MICHAEL DE LA GARZA MD Ot Z79. 82 FREIGHT CLAIM INVESTIGATOR (CURRENT) USE OF ASPIRIN 12/15/2018 MICHAEL DE LA GARZA MD Ot Z87. 19 PERSONAL HISTORY OF OTHER DISEASES OF TH 12/15/2018 MICHAEL DE LA GARZA MD Ot Z87.891 PERSONAL HISTORY OF NICOTINE DEPENDENCE 12/15/2018 MICHAEL DE LA GARZA MD Ot Z88. 5 ALLERGY STATUS TO NARCOTIC AGENT STATUS 12/15/2018 HOLLI MD, MICHAEL J Ot Z95. 5 PRESENCE OF CORONARY ANGIOPLASTY IMPLANT 01/13/2019 ZACK ESCOBEDO DO Ot E11.9 TYPE 2 DIABETES MELLITUS WITHOUT COMPLIC 01/13/2019 ZACK ESCOBEDO DO Ot E66.9 OBESITY, UNSPECIFIED 01/13/2019 GREGG DOLAN ZACK Ot E78.00 PURE HYPERCHOLESTEROLEMIA, UNSPECIFIED 01/13/2019 GREGG DOLAN ZACK Ot E78.5 HYPERLIPIDEMIA, UNSPECIFIED 01/13/2019 WILTON ESCOBEDO DOI Ot E83.39 OTHER DISORDERS OF PHOSPHORUS METABOLISM 01/13/2019 WILTON ESCOBEDO DOI Ot G47.33 OBSTRUCTIVE SLEEP APNEA (ADULT) (PEDIATR 01/13/2019 ZACK ESCOBEDO DO Ot G89.29 OTHER CHRONIC PAIN 01/13/2019 ZACK ESCOBEDO DO Ot I13.0 HYP HRT CHR [place] DIS W HRT FAIL AND ST 01/13/2019 ZACK ESCOBEDO DO Ot I21.A1 MYOCARDIAL INFARCTION TYPE 2 01/13/2019 ZACK ESCOBEDO DO Ot I25.10 ATHSCL HEART DISEASE OF [place] CORONARY 01/13/2019 ZACK ESCOBEDO DO Ot I25.2 OLD MYOCARDIAL INFARCTION 01/13/2019 WILTON ESCOBEDO DOI Ot I27.20 PULMONARY HYPERTENSION, UNSPECIFIED 01/13/2019 ZACK ESCOBEDO DO Ot I34.0 NONRHEUMATIC MITRAL (VALVE) INSUFFICIENC 01/13/2019 WILTON ESCOBEDO DOI Ot I48.0 PAROXYSMAL ATRIAL FIBRILLATION 01/13/2019 ZACK ESCOBEDO DO Ot I50.31 ACUTE DIASTOLIC (CONGESTIVE) HEART FAILU 01/13/2019 ZACK ESCOBEDO DO Ot J44.1 CHRONIC OBSTRUCTIVE PULMONARY DISEASE W 01/13/2019 ZACK ESCOBEDO DO Ot J96.01 ACUTE RESPIRATORY FAILURE WITH HYPOXIA 01/13/2019 ZACK ESCOBEDO DO Ot K21.9 GASTRO-ESOPHAGEAL REFLUX DISEASE WITHOUT 01/13/2019 ZACK ESCOBEDO DO Ot N17.9 ACUTE KIDNEY FAILURE, UNSPECIFIED 01/13/2019 ZACK ESCOBEDO DO Ot N18.9 CHRONIC KIDNEY DISEASE, UNSPECIFIED 01/13/2019 ZACK ESCOBEDO DO Ot Z68.41 BODY MASS INDEX (BMI) 40.0-44.9, ADULT 01/13/2019 ZACK ESCOBEDO DO Ot 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 01/13/2019 ZACK ESCOBEDO DO Ot Z79.82 SENIOR CARE (CURRENT) USE OF ASPIRIN 01/13/2019 ZACK ESCOBEDO DO Ot Z87.89 1 PERSONAL HISTORY OF NICOTINE DEPENDENCE 01/13/2019 ZACK ESCOBEDO DO Ot Z91.19 PATIENT'S NONCOMPLIANCE W [facility] 01/13/2019 ZACK ESCOBEDO DO Ot Z95.5 PRESENCE OF CORONARY ANGIOPLASTY IMPLANT 01/13/2019 ZACK ESCOBEDO DO Ot Z99.81 DEPENDENCE ON SUPPLEMENTAL OXYGEN 01/19/2019 GREGG DOLAN ZACK Ot E11.9 TYPE 2 DIABETES MELLITUS WITHOUT COMPLIC 01/19/2019 ZACK ESCOBEDO DO Ot E66.9 OBESITY, UNSPECIFIED 01/19/2019 ZACK ESCOBEDO DO Ot E78.5 HYPERLIPIDEMIA, UNSPECIFIED 01/19/2019 GREGG DOLAN ZACK Ot E83.39 OTHER DISORDERS OF PHOSPHORUS METABOLISM 01/19/2019 ZACK ESCOBEDO DO Ot G47.33 OBSTRUCTIVE SLEEP APNEA (ADULT) (PEDIATR 01/19/2019 ZACK ESCOBEDO DO Ot G89.29 OTHER CHRONIC PAIN 01/19/2019 ZACK ESCOBEDO DO Ot I13.0 HYP HRT CHR [place] DIS W HRT FAIL AND ST 01/19/2019 ZACK ESCOBEDO DO Ot I21.A1 MYOCARDIAL INFARCTION TYPE 2 01/19/2019 WILTON ESCOBEDO DOI Ot I25.10 ATHSCL HEART DISEASE OF [place] CORONARY 01/19/2019 GREGG DOLAN ZACK Ot I25.2 OLD MYOCARDIAL INFARCTION 01/19/2019 WILTON ESCOBEDO DOI Ot I27.20 PULMONARY HYPERTENSION, UNSPECIFIED 01/19/2019 ZACK ESCOBEDO DO Ot I34.0 NONRHEUMATIC MITRAL (VALVE) INSUFFICIENC 01/19/2019 GREGG DOLAN ZACK Ot I48.0 PAROXYSMAL ATRIAL FIBRILLATION 01/19/2019 WILTON ESCOBEDO DOI Ot I50.31 ACUTE DIASTOLIC (CONGESTIVE) HEART FAILU 01/19/2019 ZACK ESCOBEDO DO Ot J44.1 CHRONIC OBSTRUCTIVE PULMONARY DISEASE W 01/19/2019 ZACK ESCOBEDO DO Ot J96.01 ACUTE RESPIRATORY FAILURE WITH HYPOXIA 01/19/2019 ZACK ESCOBEDO DO Ot K21.9 GASTRO-ESOPHAGEAL REFLUX DISEASE WITHOUT 01/19/2019 ESCOBEDO DO, ZACK Ot N17.9 ACUTE KIDNEY FAILURE, UNSPECIFIED 01/19/2019 ZACK ESCOBEDO DO Ot N18.9 CHRONIC KIDNEY DISEASE, UNSPECIFIED 01/19/2019 ZACK ESCOBEDO DO Ot Z68.41 BODY MASS INDEX (BMI) 40.0-44.9, ADULT 01/19/2019 ZACK ESCOBEDO DO Ot 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 01/19/2019 ZACK ESCOBEDO DO Ot Z79.82 SENIOR CARE (CURRENT) USE OF ASPIRIN 01/19/2019 WILTON ESCOBEDO DOI Ot Z87.89 1 PERSONAL HISTORY OF NICOTINE DEPENDENCE 01/19/2019 ZACK ESCOBEDO DO Ot Z91.19 PATIENT'S NONCOMPLIANCE W [facility] 01/19/2019 ZACK ESCOBEDO DO Ot Z95.5 PRESENCE OF CORONARY ANGIOPLASTY IMPLANT 01/19/2019 ZACK ESCOBEDO DO Ot Z99.81 DEPENDENCE ON SUPPLEMENTAL OXYGEN 01/19/2019 ZACK ESCOBEDO DO Ot E11.9 TYPE 2 DIABETES MELLITUS WITHOUT COMPLIC 01/19/2019 WILTON ESCOBEDO DOI Ot E66.9 OBESITY, UNSPECIFIED 01/19/2019 GREGG DOLAN ZACK Ot E78.5 HYPERLIPIDEMIA, UNSPECIFIED 01/19/2019 WILTON ESCOBEDO DOI Ot E83.39 OTHER DISORDERS OF PHOSPHORUS METABOLISM 01/19/2019 WILTON ESCOBEDO DOI Ot G47.33 OBSTRUCTIVE SLEEP APNEA (ADULT) (PEDIATR 01/19/2019 WILTON ESCOBEDO DOI Ot G89.29 OTHER CHRONIC PAIN 01/19/2019 ZACK ESCOBEDO DO Ot I13.0 HYP HRT CHR [place] DIS W HRT FAIL AND ST 01/19/2019 GREGG DOLAN ZACK Ot I21.A1 MYOCARDIAL INFARCTION TYPE 2 01/19/2019 GREGG DOLAN ZACK Ot I25.10 ATHSCL HEART DISEASE OF [place] CORONARY 01/19/2019 WILTON ESCOBEDO DOI Ot I25.2 OLD MYOCARDIAL INFARCTION 01/19/2019 GREGG DOLAN ZACK Ot I27.20 PULMONARY HYPERTENSION, UNSPECIFIED 01/19/2019 GREGG DOLAN ZACK Ot I34.0 NONRHEUMATIC MITRAL (VALVE) INSUFFICIENC 01/19/2019 WILTON ESCOBEDO DOI Ot I48.0 PAROXYSMAL ATRIAL FIBRILLATION 01/19/2019 GREGG DOLAN ZACK Ot I50.31 ACUTE DIASTOLIC (CONGESTIVE) HEART FAILU 01/19/2019 ZACK ESCOBEDO DO Ot J44.1 CHRONIC OBSTRUCTIVE PULMONARY DISEASE W 01/19/2019 ZACK ESCOBEDO DO Ot J96.01 ACUTE RESPIRATORY FAILURE WITH HYPOXIA 01/19/2019 ZACK ESCOBEDO DO Ot K21.9 GASTRO-ESOPHAGEAL REFLUX DISEASE WITHOUT 01/19/2019 WILTON ESCOBEDO DOI Ot N17.9 ACUTE KIDNEY FAILURE, UNSPECIFIED 01/19/2019 ZACK ESCOBEDO DO Ot N18.9 CHRONIC KIDNEY DISEASE, UNSPECIFIED 01/19/2019 ZACK ESCOBEDO DO Ot Z68.41 BODY MASS INDEX (BMI) 40.0-44.9, ADULT 01/19/2019 ZACK ESCOBEDO DO Ot Z79.01 SENIOR CARE (CURRENT) USE OF ANTICOAGULANT 01/19/2019 ZACK ESCOBEDO DO Ot Z79.82 SENIOR CARE (CURRENT) USE OF ASPIRIN 01/19/2019 ZACK ESCOBEDO DO Ot Z87.89 1 PERSONAL HISTORY OF NICOTINE DEPENDENCE 01/19/2019 ZACK ESCOBEDO DO Ot Z91.19 PATIENT'S NONCOMPLIANCE W [facility] 01/19/2019 ZACK ESCOBEDO DO Ot Z95.5 PRESENCE OF CORONARY ANGIOPLASTY IMPLANT 01/19/2019 ZACK ESCOBEDO DO Ot Z99.81 DEPENDENCE ON SUPPLEMENTAL OXYGEN 01/19/2019 ZACK ESCOBEDO DO Ot E11.9 TYPE 2 DIABETES MELLITUS WITHOUT COMPLIC 01/19/2019 WILTON ESCOBEDO DOI Ot E66.9 OBESITY, UNSPECIFIED 01/19/2019 ZACK ESCOBEDO DO Ot E78.5 HYPERLIPIDEMIA, UNSPECIFIED 01/19/2019 ZACK ESCOBEDO DO Ot E83.39 OTHER DISORDERS OF PHOSPHORUS METABOLISM 01/19/2019 WILTON ESCOBEDO DOI Ot G47.33 OBSTRUCTIVE SLEEP APNEA (ADULT) (PEDIATR 01/19/2019 ZACK ESCOBEDO DO Ot G89.29 OTHER CHRONIC PAIN 01/19/2019 ZACK ESCOBEDO DO Ot I13.0 HYP HRT CHR [place] DIS W HRT FAIL AND ST 01/19/2019 WILTON ESCOBEDO DOI Ot I21.A1 MYOCARDIAL INFARCTION TYPE 2 01/19/2019 WILTON ESCOBEDO DOI Ot I25.10 ATHSCL HEART DISEASE OF [place] CORONARY 01/19/2019 ZACK ESCOBEDO DO Ot I25.2 OLD MYOCARDIAL INFARCTION 01/19/2019 ZACK ESCOBEDO DO Ot I27.20 PULMONARY HYPERTENSION, UNSPECIFIED 01/19/2019 ZACK ESCOBEDO DO Ot I34.0 NONRHEUMATIC MITRAL (VALVE) INSUFFICIENC 01/19/2019 ZACK ESCOBEDO DO Ot I48.0 PAROXYSMAL ATRIAL FIBRILLATION 01/19/2019 ZACK ESCOBEDO DO Ot I50.31 ACUTE DIASTOLIC (CONGESTIVE) HEART FAILU 01/19/2019 ZACK ESCOBEDO DO Ot J44.1 CHRONIC OBSTRUCTIVE PULMONARY DISEASE W 01/19/2019 ZACK ESCOBEDO DO Ot J96.01 ACUTE RESPIRATORY FAILURE WITH HYPOXIA 01/19/2019 ZACK ESCOBEDO DO Ot K21.9 GASTRO-ESOPHAGEAL REFLUX DISEASE WITHOUT 01/19/2019 WILTON ESCOBEDO DOI Ot N17.9 ACUTE KIDNEY FAILURE, UNSPECIFIED 01/19/2019 ZACK ESCOBEDO DO Ot N18.9 CHRONIC KIDNEY DISEASE, UNSPECIFIED 01/19/2019 ZACK ESCOBEDO DO Ot Z68.41 BODY MASS INDEX (BMI) 40.0-44.9, ADULT 01/19/2019 ZACK ESCOBEDO DO Ot Z79.01 SENIOR CARE (CURRENT) USE OF ANTICOAGULANT 01/19/2019 ZACK ESCOBEDO DO Ot Z79.82 SENIOR CARE (CURRENT) USE OF ASPIRIN 01/19/2019 ZACK ESCOBEDO DO Ot Z87.89 1 PERSONAL HISTORY OF NICOTINE DEPENDENCE 01/19/2019 ZACK ESCOBEDO DO Ot Z91.19 PATIENT'S NONCOMPLIANCE W [facility] 01/19/2019 ZACK ESCOBEDO DO Ot Z95.5 PRESENCE OF CORONARY ANGIOPLASTY IMPLANT 01/19/2019 ZACK ESCOBEDO DO Ot Z99.81 DEPENDENCE ON SUPPLEMENTAL OXYGEN 01/19/2019 ZACK ESCOBEDO DO Ot E11.9 TYPE 2 DIABETES MELLITUS WITHOUT COMPLIC 01/19/2019 ZACK ESCOBEDO DO Ot E66.9 OBESITY, UNSPECIFIED 01/19/2019 ZACK ESCOBEDO DO Ot E78.5 HYPERLIPIDEMIA, UNSPECIFIED 01/19/2019 ZACK ESCOBEDO DO Ot E83.39 OTHER DISORDERS OF PHOSPHORUS METABOLISM 01/19/2019 ZACK ESCOBEDO DO Ot G47.33 OBSTRUCTIVE SLEEP APNEA (ADULT) (PEDIATR 01/19/2019 ZACK ESCOBEDO DO Ot G89.29 OTHER CHRONIC PAIN 01/19/2019 ZACK ESCOBEDO DO Ot I13.0 HYP HRT CHR [place] DIS W HRT FAIL AND ST 01/19/2019 ZACK ESCOBEDO DO Ot I21.A1 MYOCARDIAL INFARCTION TYPE 2 01/19/2019 ZACK ESCOBEDO DO Ot I25.10 ATHSCL HEART DISEASE OF [place] CORONARY 01/19/2019 ZACK ESCOBEDO DO Ot I25.2 OLD MYOCARDIAL INFARCTION 01/19/2019 ZACK ESCOBEDO DO Ot I27.20 PULMONARY HYPERTENSION, UNSPECIFIED 01/19/2019 ZACK ESCOBEDO DO Ot I34.0 NONRHEUMATIC MITRAL (VALVE) INSUFFICIENC 01/19/2019 ZACK ESCOBEDO DO Ot I48.0 PAROXYSMAL ATRIAL FIBRILLATION 01/19/2019 ZACK ESCOBEDO DO Ot I50.31 ACUTE DIASTOLIC (CONGESTIVE) HEART FAILU 01/19/2019 ZACK ESCOBEDO DO Ot J44.1 CHRONIC OBSTRUCTIVE PULMONARY DISEASE W 01/19/2019 ZACK ESCOBEDO DO Ot J96.01 ACUTE RESPIRATORY FAILURE WITH HYPOXIA 01/19/2019 ZACK ESCOBEDO DO Ot K21.9 GASTRO-ESOPHAGEAL REFLUX DISEASE WITHOUT 01/19/2019 ZACK ESCOBEDO DO Ot N17.9 ACUTE KIDNEY FAILURE, UNSPECIFIED 01/19/2019 ZACK ESCOBEDO DO Ot N18.9 CHRONIC KIDNEY DISEASE, UNSPECIFIED 01/19/2019 ZACK ESCOBEDO DO Ot Z68.41 BODY MASS INDEX (BMI) 40.0-44.9, ADULT 01/19/2019 ZACK ESCOBEDO DO Ot Z79.01 SENIOR CARE (CURRENT) USE OF ANTICOAGULANT 01/19/2019 ZACK ESCOBEDO DO Ot Z79.82 FREIGHT CLAIM INVESTIGATOR (CURRENT) USE OF ASPIRIN 01/19/2019 ZACK ESCOBEDO DO Ot Z87.89 1 PERSONAL HISTORY OF NICOTINE DEPENDENCE 01/19/2019 ZACK ESCOBEDO DO Ot Z91.19 PATIENT'S NONCOMPLIANCE W [facility] 01/19/2019 ZACK ESCOBEDO DO Ot Z95.5 PRESENCE OF CORONARY ANGIOPLASTY IMPLANT 01/19/2019 ZACK ESCOBEDO DO Ot Z99.81 DEPENDENCE ON SUPPLEMENTAL OXYGEN 01/19/2019 ZACK ESCOBEDO DO Ot E11.9 TYPE 2 DIABETES MELLITUS WITHOUT COMPLIC 01/19/2019 ZACK ESCOBEDO DO Ot E66.9 OBESITY, UNSPECIFIED 01/19/2019 ZACK ESCOBEDO DO Ot E78.5 HYPERLIPIDEMIA, UNSPECIFIED 01/19/2019 ZACK ESCOBEDO DO Ot E83.39 OTHER DISORDERS OF PHOSPHORUS METABOLISM 01/19/2019 ZACK ESCOBEDO DO Ot G47.33 OBSTRUCTIVE SLEEP APNEA (ADULT) (PEDIATR 01/19/2019 ZACK ESCOBEDO DO Ot G89.29 OTHER CHRONIC PAIN 01/19/2019 ZACK ESCOBEDO DO Ot I13.0 HYP HRT CHR [place] DIS W HRT FAIL AND ST 01/19/2019 ZACK ESCOBEDO DO Ot I21.A1 MYOCARDIAL INFARCTION TYPE 2 01/19/2019 WILTON ESCOBEDO DOI Ot I25.10 ATHSCL HEART DISEASE OF [place] CORONARY 01/19/2019 ZACK ESCOBEDO DO Ot I25.2 OLD MYOCARDIAL INFARCTION 01/19/2019 WILTON ESCOBEDO DOI Ot I27.20 PULMONARY HYPERTENSION, UNSPECIFIED 01/19/2019 GREGG DOLAN ZACK Ot I34.0 NONRHEUMATIC MITRAL (VALVE) INSUFFICIENC 01/19/2019 ZACK ESCOBEDO DO Ot I48.0 PAROXYSMAL ATRIAL FIBRILLATION 01/19/2019 WILTON ESCOBEDO DOI Ot I50.31 ACUTE DIASTOLIC (CONGESTIVE) HEART FAILU 01/19/2019 ZACK ESCOBEDO DO Ot J44.1 CHRONIC OBSTRUCTIVE PULMONARY DISEASE W 01/19/2019 ZACK ESCOBEDO DO Ot J96.01 ACUTE RESPIRATORY FAILURE WITH HYPOXIA 01/19/2019 WILTON ESCOBEDO DOI Ot K21.9 GASTRO-ESOPHAGEAL REFLUX DISEASE WITHOUT 01/19/2019 WILTON ESCOBEDO DOI Ot N17.9 ACUTE KIDNEY FAILURE, UNSPECIFIED 01/19/2019 ZACK ESCOBEDO DO Ot N18.9 CHRONIC KIDNEY DISEASE, UNSPECIFIED 01/19/2019 ZACK ESCOBEDO DO Ot Z68.41 BODY MASS INDEX (BMI) 40.0-44.9, ADULT 01/19/2019 ZACK ESCOBEDO DO Ot 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 01/19/2019 ZACK ESCOBEDO DO Ot Z79.82 FREIGHT CLAIM INVESTIGATOR (CURRENT) USE OF ASPIRIN 01/19/2019 ZACK ESCOBEDO DO Ot Z87.89 1 PERSONAL HISTORY OF NICOTINE DEPENDENCE 01/19/2019 ZACK ESCOBEDO DO Ot Z91.19 PATIENT'S NONCOMPLIANCE W [facility] 01/19/2019 WILTON ESCOBEDO DOI Ot Z95.5 PRESENCE OF CORONARY ANGIOPLASTY IMPLANT 01/19/2019 WILTON ESCOBEDO DOI Ot Z99.81 DEPENDENCE ON SUPPLEMENTAL OXYGEN 01/28/2019 ZACK ESCOBEDO DO Ot E11.21 TYPE 2 DIABETES MELLITUS WITH DIABETIC N 01/28/2019 GREGG DOLAN ZACK Ot E11.65 TYPE 2 DIABETES MELLITUS WITH HYPERGLYCE 01/28/2019 GREGG DOLAN ZACK Ot E66.9 OBESITY, UNSPECIFIED 01/28/2019 WILTON ESCOBEDO DOI Ot E78.5 HYPERLIPIDEMIA, UNSPECIFIED 01/28/2019 GREGG DOLAN ZACK Ot E88.81 METABOLIC SYNDROME 01/28/2019 GREGG DOLAN ZACK Ot F32.9 MAJOR DEPRESSIVE DISORDER, SINGLE EPISOD 01/28/2019 WILTON ESCOBEDO DOI Ot F41.9 ANXIETY DISORDER, UNSPECIFIED 01/28/2019 GREGG DOLAN ZACK Ot G47.33 OBSTRUCTIVE SLEEP APNEA (ADULT) (PEDIATR 01/28/2019 GREGG DOLAN ZACK Ot G72.89 OTHER SPECIFIED MYOPATHIES 01/28/2019 GREGG DOLAN ZACK Ot I12.9 HYPERTENSIVE CHRONIC KIDNEY DISEASE W ST 01/28/2019 GREGG DOLAN ZACK Ot I21.A1 MYOCARDIAL INFARCTION TYPE 2 01/28/2019 WILTON ESCOBEDO DOI Ot I25.10 ATHSCL HEART DISEASE OF [place] CORONARY 01/28/2019 GREGG DOLAN ZACK Ot I48.0 PAROXYSMAL ATRIAL FIBRILLATION 01/28/2019 GREGG DOLAN AZCK Ot I49.5 SICK SINUS SYNDROME 01/28/2019 WILTON ESCOBEDO DOI Ot J44.9 CHRONIC OBSTRUCTIVE PULMONARY DISEASE, U 01/28/2019 WILTON ESCOBEDO DOI Ot K21.9 GASTRO-ESOPHAGEAL REFLUX DISEASE WITHOUT 01/28/2019 GREGG DOLAN ZACK Ot K59.09 OTHER CONSTIPATION 01/28/2019 GREGG DOLAN ZACK Ot M16.11 UNILATERAL PRIMARY OSTEOARTHRITIS, RIGHT 01/28/2019 GREGG DOLAN ZACK Ot M51.37 OTHER INTERVERTEBRAL DISC DEGENERATION, 01/28/2019 GREGG DOLAN ZACK Ot M70.61 TROCHANTERIC BURSITIS, RIGHT HIP 01/28/2019 GREGG DOLAN ZACK Ot N18.9 CHRONIC KIDNEY DISEASE, UNSPECIFIED 01/28/2019 GREGG DOLAN ZACK Ot T38.0X 5A ADVERSE EFFECT OF GLUCOCORT/SYNTH ANALOG 01/28/2019 ZACK ESCOBEDO DO Ot T82.85 5D STENOSIS OF CORONARY ARTERY STENT, SUBSE 01/28/2019 ZACK ESCOBEDO DO Ot Z68.37 BODY MASS INDEX (BMI) 37.0-37.9, ADULT 01/28/2019 ZACK ESCOBEDO DO Ot Z79.01 SENIOR CARE (CURRENT) USE OF ANTICOAGULANT 01/28/2019 ZACK ESCOBEDO DO Ot Z79.4 SENIOR CARE (CURRENT) USE OF INSULIN 01/28/2019 ZACK ESCOBEDO DO Ot Z86.71 1 PERSONAL HISTORY OF PULMONARY EMBOLISM 01/28/2019 ZACK ESCOBEDO DO Ot Z87.89 1 PERSONAL HISTORY OF NICOTINE DEPENDENCE 01/28/2019 ZACK ESCOBEDO DO, Ot Z95.5 PRESENCE OF CORONARY ANGIOPLASTY IMPLANT 02/05/2019 ALEXA SOLIZ MD, Ot E11. 9 TYPE 2 DIABETES MELLITUS WITHOUT COMPLIC 02/05/2019 ALXEA SOLIZ MD, Ot E78. 00 PURE HYPERCHOLESTEROLEMIA, UNSPECIFIED 02/05/2019 ALEXA SOLIZ MD, Ot E78. 5 HYPERLIPIDEMIA, UNSPECIFIED 02/05/2019 ALEXA SOLIZ MD, Ot F41. 9 ANXIETY DISORDER, UNSPECIFIED 02/05/2019 ALEXA SOLIZ MD, Ot G47. 30 SLEEP APNEA, UNSPECIFIED 02/05/2019 ALEXA SOLIZ MD Ot I10 ESSENTIAL (PRIMARY) HYPERTENSION 02/05/2019 ALEXA SOLIZ MD, Ot I25. 10 ATHSCL HEART DISEASE OF [place] CORONARY 02/05/2019 ALEXA SOLIZ MD, Ot I48. 91 UNSPECIFIED ATRIAL FIBRILLATION 02/05/2019 ALEXA SOLIZ MD, Ot I95. 89 OTHER HYPOTENSION 02/05/2019 ALEXA SOLIZ MD, Ot J44. 9 CHRONIC OBSTRUCTIVE PULMONARY DISEASE, U 02/05/2019 ALEXA SOLIZ MD, Ot K21. 9 GASTRO-ESOPHAGEAL REFLUX DISEASE WITHOUT 02/05/2019 ALEXA SOLIZ MD, Ot R00. 1 BRADYCARDIA, UNSPECIFIED 02/05/2019 ALEXA SOLIZ MD, Ot Z79. 01 SENIOR CARE (CURRENT) USE OF ANTICOAGULANT 02/05/2019 ALEXA SOLIZ MD, Ot Z79. 4 SENIOR CARE (CURRENT) USE OF INSULIN 02/05/2019 ALEXA SOLIZ MD, Ot Z79. 82 FREIGHT CLAIM INVESTIGATOR (CURRENT) USE OF ASPIRIN 02/05/2019 ALEXA SOLIZ MD, Ot Z79.899 OTHER SENIOR CARE (CURRENT) DRUG THERAPY 02/05/2019 ALEXA SOLIZ MD, Ot Z82. 49 FAMILY HX OF ISCHEM HEART DIS AND OTH DI 02/05/2019 ALEXA SOLIZ MD, Ot Z86.711 PERSONAL HISTORY OF PULMONARY EMBOLISM 02/05/2019 ALEXA SOLIZ MD, Ot Z87.891 PERSONAL HISTORY OF NICOTINE DEPENDENCE 02/05/2019 ALEXA SOLIZ MD, Ot Z90.710 ACQUIRED ABSENCE OF BOTH CERVIX AND UTER 02/05/2019 ALEXA SOLIZ MD, Ot Z95. 5 PRESENCE OF CORONARY ANGIOPLASTY IMPLANT 02/05/2019 ALEXA SOLIZ MD, Ot Z99. 89 DEPENDENCE ON OTHER ENABLING MACHINES AN 02/07/2019 ALEXA SOLIZ MD, Ot E11. 9 TYPE 2 DIABETES MELLITUS WITHOUT COMPLIC 02/07/2019 ALEXA SOLIZ MD, Ot E78. 00 PURE HYPERCHOLESTEROLEMIA, UNSPECIFIED 02/07/2019 ALEXA SOLIZ MD, Ot E78. 5 HYPERLIPIDEMIA, UNSPECIFIED 02/07/2019 ALEXA SOLIZ MD, Ot F41. 9 ANXIETY DISORDER, UNSPECIFIED 02/07/2019 ALEXA SOLIZ MD, Ot G47. 30 SLEEP APNEA, UNSPECIFIED 02/07/2019 ALEXA SOLIZ MD, Ot I10 ESSENTIAL (PRIMARY) HYPERTENSION 02/07/2019 ALEXA SOLIZ MD, Ot I25. 10 ATHSCL HEART DISEASE OF [place] CORONARY 02/07/2019 ALEXA SOLIZ MD, Ot I48. 91 UNSPECIFIED ATRIAL FIBRILLATION 02/07/2019 ALEXA SOLIZ MD, Ot I95. 89 OTHER HYPOTENSION 02/07/2019 ALEXA SOLIZ MD, Ot J44. 9 CHRONIC OBSTRUCTIVE PULMONARY DISEASE, U 02/07/2019 ALEXA SOLIZ MD, Ot K21. 9 GASTRO-ESOPHAGEAL REFLUX DISEASE WITHOUT 02/07/2019 ALEXA SOLIZ MD, Ot R00. 1 BRADYCARDIA, UNSPECIFIED 02/07/2019 ALEXA SOLIZ MD, Ot Z79. 01 SENIOR CARE (CURRENT) USE OF ANTICOAGULANT 02/07/2019 ALEXA SOLIZ MD, Ot Z79. 4 FREIGHT CLAIM INVESTIGATOR (CURRENT) USE OF INSULIN 02/07/2019 ALEXA SOLIZ MD, Ot Z79. 82 FREIGHT CLAIM INVESTIGATOR (CURRENT) USE OF ASPIRIN 02/07/2019 ALEXA SOLIZ MD, Ot Z82. 49 FAMILY HX OF ISCHEM HEART DIS AND OTH DI 02/07/2019 ALEXA SOLIZ MD, Ot Z86.711 PERSONAL HISTORY OF PULMONARY EMBOLISM 02/07/2019 ALEXA SOLIZ MD, Ot Z87.891 PERSONAL HISTORY OF NICOTINE DEPENDENCE 02/07/2019 ALEXA SOLIZ MD, Ot Z90.710 ACQUIRED ABSENCE OF BOTH CERVIX AND UTER 02/07/2019 ALEXA SOLIZ MD, Ot Z95. 5 PRESENCE OF CORONARY ANGIOPLASTY IMPLANT 02/07/2019 ALEXA SOLIZ MD, Ot Z99. 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 9 TYPE 2 DIABETES MELLITUS WITHOUT COMPLIC 02/13/2019 ALEXA SOLIZ MD, Ot E78. 00 PURE HYPERCHOLESTEROLEMIA, UNSPECIFIED 02/13/2019 ALEXA SOLIZ MD, Ot E78. 5 HYPERLIPIDEMIA, UNSPECIFIED 02/13/2019 ALEXA SOLIZ MD, Ot F41. 9 ANXIETY DISORDER, UNSPECIFIED 02/13/2019 ALEXA SOLIZ MD, Ot G47. 30 SLEEP APNEA, UNSPECIFIED 02/13/2019 ALEXA SOLIZ MD, Ot I10 ESSENTIAL (PRIMARY) HYPERTENSION 02/13/2019 ALEXA SOLIZ MD, Ot I25. 10 ATHSCL HEART DISEASE OF [place] CORONARY 02/13/2019 ALEXA SOLIZ MD, Ot I48. 91 UNSPECIFIED ATRIAL FIBRILLATION 02/13/2019 ALEXA SOLIZ MD, Ot I95. 89 OTHER HYPOTENSION 02/13/2019 ALEXA SOLIZ MD, Ot J44. 9 CHRONIC OBSTRUCTIVE PULMONARY DISEASE, U 02/13/2019 ALEXA SOLIZ MD, Ot K21. 9 GASTRO-ESOPHAGEAL REFLUX DISEASE WITHOUT 02/13/2019 ALEXA SOLIZ MD, Ot R00. 1 BRADYCARDIA, UNSPECIFIED 02/13/2019 ALEXA SOLIZ MD, Ot Z79. 01 SENIOR CARE (CURRENT) USE OF ANTICOAGULANT 02/13/2019 ALEXA SOLIZ MD, Ot Z79. 4 FREIGHT CLAIM INVESTIGATOR (CURRENT) USE OF INSULIN 02/13/2019 ALEXA SOLIZ MD, Ot Z79. 82 SENIOR CARE (CURRENT) USE OF ASPIRIN 02/13/2019 ALEXA SOLIZ MD, Ot Z82. 51 FAMILY HX OF ISCHEM HEART DIS AND OTH DI 02/13/2019 ALEXA SOLIZ MD, Ot Z86.711 PERSONAL HISTORY OF PULMONARY EMBOLISM 02/13/2019 ALEXA SOLIZ MD, Ot Z87.891 PERSONAL HISTORY OF NICOTINE DEPENDENCE 02/13/2019 ALEXA SOLIZ MD, Ot Z90.710 ACQUIRED ABSENCE OF BOTH CERVIX AND UTER 02/13/2019 ALEXA SOLIZ MD, Ot Z95. 5 PRESENCE OF CORONARY ANGIOPLASTY IMPLANT 02/13/2019 ALEXA SOLIZ MD, Ot Z99. 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 9 TYPE 2 DIABETES MELLITUS WITHOUT COMPLIC 02/15/2019 ALEXA SOLIZ MD, Ot E78. 00 PURE HYPERCHOLESTEROLEMIA, UNSPECIFIED 02/15/2019 ALEXA SOLIZ MD, Ot E78. 5 HYPERLIPIDEMIA, UNSPECIFIED 02/15/2019 ALEXA SOLIZ MD, Ot F41. 9 ANXIETY DISORDER, UNSPECIFIED 02/15/2019 ALEXA SOLIZ MD, Ot G47. 30 SLEEP APNEA, UNSPECIFIED 02/15/2019 ALEXA SOLIZ MD, Ot I10 ESSENTIAL (PRIMARY) HYPERTENSION 02/15/2019 ALEXA SOLIZ MD, Ot I25. 10 ATHSCL HEART DISEASE OF [place] CORONARY 02/15/2019 ALEXA SOLIZ MD, Ot I48. 91 UNSPECIFIED ATRIAL FIBRILLATION 02/15/2019 ALEXA SOLIZ MD, Ot I95. 89 OTHER HYPOTENSION 02/15/2019 ALEXA SOLIZ MD, Ot J44. 9 CHRONIC OBSTRUCTIVE PULMONARY DISEASE, U 02/15/2019 ALEXA SOLIZ MD, Ot K21. 9 GASTRO-ESOPHAGEAL REFLUX DISEASE WITHOUT 02/15/2019 ALEXA SOLIZ MD, Ot R00. 1 BRADYCARDIA, UNSPECIFIED 02/15/2019 ALEXA SOLIZ MD, Ot Z79. 01 FREIGHT CLAIM INVESTIGATOR (CURRENT) USE OF ANTICOAGULANT 02/15/2019 ALEXA SOLIZ MD, Ot Z79. 4 FREIGHT CLAIM INVESTIGATOR (CURRENT) USE OF INSULIN 02/15/2019 ALEXA SOLIZ MD, Ot Z79. 82 SENIOR CARE (CURRENT) USE OF ASPIRIN 02/15/2019 ALEXA SOLIZ MD, Ot Z79.899 OTHER FREIGHT CLAIM INVESTIGATOR (CURRENT) DRUG THERAPY 02/15/2019 ALEXA SOLIZ MD, Ot Z82. 51 FAMILY HX OF ISCHEM HEART DIS AND OTH DI 02/15/2019 ALEXA SOLIZ MD, Ot Z86.711 PERSONAL HISTORY OF PULMONARY EMBOLISM 02/15/2019 ALEXA SOLIZ MD, Ot Z87.891 PERSONAL HISTORY OF NICOTINE DEPENDENCE 02/15/2019 ALEXA SOLIZ MD, Ot Z90.710 ACQUIRED ABSENCE OF BOTH CERVIX AND UTER 02/15/2019 ALEXA SOLIZ MD, Ot Z95. 5 PRESENCE OF CORONARY ANGIOPLASTY IMPLANT 02/15/2019 ALEXA SOLIZ MD, Ot Z99. 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 9 TYPE 2 DIABETES MELLITUS WITHOUT COMPLIC 02/24/2019 ALEXA SOLIZ MD, Ot E78. 00 PURE HYPERCHOLESTEROLEMIA, UNSPECIFIED 02/24/2019 ALEXA SOLIZ MD, Ot E78. 5 HYPERLIPIDEMIA, UNSPECIFIED 02/24/2019 ALEXA SOLIZ MD, Ot F41. 9 ANXIETY DISORDER, UNSPECIFIED 02/24/2019 ALEXA SOLIZ MD, Ot G47. 30 SLEEP APNEA, UNSPECIFIED 02/24/2019 ALEXA SOLIZ MD, Ot I10 ESSENTIAL (PRIMARY) HYPERTENSION 02/24/2019 ALEXA SOLIZ MD, Ot I25. 10 ATHSCL HEART DISEASE OF [place] CORONARY 02/24/2019 ALEXA SOLIZ MD, Ot I48. 91 UNSPECIFIED ATRIAL FIBRILLATION 02/24/2019 ALEXA SOLIZ MD, Ot I95. 89 OTHER HYPOTENSION 02/24/2019 ALEXA SOLIZ MD, Ot J44. 9 CHRONIC OBSTRUCTIVE PULMONARY DISEASE, U 02/24/2019 ALEXA SOLIZ MD, Ot K21. 9 GASTRO-ESOPHAGEAL REFLUX DISEASE WITHOUT 02/24/2019 ALEXA SOLIZ MD, Ot R00. 1 BRADYCARDIA, UNSPECIFIED 02/24/2019 ALEXA SOLIZ MD, Ot Z79. 01 FREIGHT CLAIM INVESTIGATOR (CURRENT) USE OF ANTICOAGULANT 02/24/2019 ALEXA SOLIZ MD, Ot Z79. 4 SENIOR CARE (CURRENT) USE OF INSULIN 02/24/2019 ALEXA SOLIZ MD, Ot Z79. 82 SENIOR CARE (CURRENT) USE OF ASPIRIN 02/24/2019 ALEXA SOLIZ MD, Ot Z79.899 OTHER [employer]RE[employer] CLAIM INVESTIGATOR (CURRENT) DRUG THERAPY 02/24/2019 ALEXA SOLIZ MD, Ot Z82. 51 FAMILY HX OF ISCHEM HEART DIS AND OTH DI 02/24/2019 ALEXA SOLIZ MD, Ot Z86.711 PERSONAL HISTORY OF PULMONARY EMBOLISM 02/24/2019 ALEXA SOLIZ MD, Ot Z87.891 PERSONAL HISTORY OF NICOTINE DEPENDENCE 02/24/2019 ALEXA SOLIZ MD, Ot Z90.710 ACQUIRED ABSENCE OF BOTH CERVIX AND UTER 02/24/2019 ALEXA SOLIZ MD Ot Z95. 5 PRESENCE OF CORONARY ANGIOPLASTY IMPLANT 02/24/2019 ALEXA SOLIZ MD, Ot Z99. 89 DEPENDENCE ON OTHER ENABLING MACHINES AN 02/24/2019 GREGG DOLAN ZACK Ot D64.9 ANEMIA, UNSPECIFIED 02/24/2019 GREGG DOLAN ZACK Ot E11.9 TYPE 2 DIABETES MELLITUS WITHOUT COMPLIC 02/24/2019 GREGG DOLAN ZACK Ot E66.2 MORBID (SEVERE) OBESITY WITH ALVEOLAR HY 02/24/2019 GREGG DOLAN ZACK Ot E78.5 HYPERLIPIDEMIA, UNSPECIFIED 02/24/2019 GREGG DOLAN ZACK Ot F41.9 ANXIETY DISORDER, UNSPECIFIED 02/24/2019 GREGG DOLAN ZACK Ot G72.81 CRITICAL ILLNESS MYOPATHY 02/24/2019 GREGG DOLAN ZACK Ot G93.40 ENCEPHALOPATHY, UNSPECIFIED 02/24/2019 GREGG DOLAN ZACK Ot I07.1 RHEUMATIC TRICUSPID INSUFFICIENCY 02/24/2019 GREGG DOLAN ZACK Ot I12.9 HYPERTENSIVE CHRONIC KIDNEY DISEASE W ST 02/24/2019 GREGG DOLAN ZACK Ot I25.10 ATHSCL HEART DISEASE OF [place] CORONARY 02/24/2019 GREGG DOLAN ZACK Ot I48.0 PAROXYSMAL ATRIAL FIBRILLATION 02/24/2019 GREGG DOLAN ZACK Ot I49.5 SICK SINUS SYNDROME 02/24/2019 GREGG DOLAN ZACK Ot I65.23 OCCLUSION AND STENOSIS OF BILATERAL LEAL 02/24/2019 GREGG DOLAN ZACK Ot J44.9 CHRONIC OBSTRUCTIVE PULMONARY DISEASE, U 02/24/2019 GREGG DOLAN ZACK Ot K21.9 GASTRO-ESOPHAGEAL REFLUX DISEASE WITHOUT 02/24/2019 GREGG DOLAN ZACK Ot M19.91 PRIMARY OSTEOARTHRITIS, UNSPECIFIED SITE 02/24/2019 GREGG DOLAN ZACK Ot 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 02/24/2019 GREGG DOLAN ZACK Ot N17.9 ACUTE KIDNEY FAILURE, UNSPECIFIED 02/24/2019 ESCOBEDONISHI DOLAN ZACK Ot N18.9 CHRONIC KIDNEY DISEASE, UNSPECIFIED 02/24/2019 ESCOBEDONISHI DOLAN ZACK Ot Z79.4 SENIOR CARE (CURRENT) USE OF INSULIN 02/24/2019 GREGG DOLAN ZACK Ot Z87.01 PERSONAL HISTORY OF PNEUMONIA (RECURRENT 02/24/2019 ESCOBEDONISHI DOLAN ZACK Ot Z87.09 PERSONAL HISTORY OF OTHER DISEASES OF TH 02/24/2019 ESCOBEDONISHI DOLAN ZACK Ot 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 9 TYPE 2 DIABETES MELLITUS WITHOUT COMPLIC 02/27/2019 ALEXA SOLIZ MD, Ot E78. 00 PURE HYPERCHOLESTEROLEMIA, UNSPECIFIED 02/27/2019 ALEXA SOLIZ MD, Ot E78. 5 HYPERLIPIDEMIA, UNSPECIFIED 02/27/2019 ALEXA SOLIZ MD, Ot F41. 9 ANXIETY DISORDER, UNSPECIFIED 02/27/2019 ALEXA SOLIZ MD, Ot G47. 30 SLEEP APNEA, UNSPECIFIED 02/27/2019 ALEXA SOLIZ MD, Ot I10 ESSENTIAL (PRIMARY) HYPERTENSION 02/27/2019 ALEXA SOLIZ MD, Ot I25. 10 ATHSCL HEART DISEASE OF [place] CORONARY 02/27/2019 ALEXA SOLIZ MD, Ot I48. 91 UNSPECIFIED ATRIAL FIBRILLATION 02/27/2019 ALEXA SOLIZ MD, Ot I95. 89 OTHER HYPOTENSION 02/27/2019 ALEXA SOLIZ MD, Ot J44. 9 CHRONIC OBSTRUCTIVE PULMONARY DISEASE, U 02/27/2019 ALEXA SOLIZ MD, Ot K21. 9 GASTRO-ESOPHAGEAL REFLUX DISEASE WITHOUT 02/27/2019 HEYDI MD, ALEXA W Ot R00. 1 BRADYCARDIA, UNSPECIFIED 02/27/2019 ALEXA SOLIZ MD, Ot Z79. 01 FREIGHT CLAIM INVESTIGATOR (CURRENT) USE OF ANTICOAGULANT 02/27/2019 ALEXA SOLIZ MD, Ot Z79. 4 FREIGHT CLAIM INVESTIGATOR (CURRENT) USE OF INSULIN 02/27/2019 ALEXA SOLIZ MD, Ot Z79. 82 SENIOR CARE (CURRENT) USE OF ASPIRIN 02/27/2019 ALEXA SOLIZ MD, Ot Z79.899 OTHER SENIOR CARE (CURRENT) DRUG THERAPY 02/27/2019 ALEXA SOLIZ MD, Ot Z82. 49 FAMILY HX OF ISCHEM HEART DIS AND OTH DI 02/27/2019 ALEXA SOLIZ MD, Ot Z86.711 PERSONAL HISTORY OF PULMONARY EMBOLISM 02/27/2019 ALEXA SOLIZ MD, Ot Z87.891 PERSONAL HISTORY OF NICOTINE DEPENDENCE 02/27/2019 ALEXA SOLIZ MD, Ot Z90.710 ACQUIRED ABSENCE OF BOTH CERVIX AND UTER 02/27/2019 ALEXA SOLIZ MD, Ot Z95. 5 PRESENCE OF CORONARY ANGIOPLASTY IMPLANT 02/27/2019 ALEXA SOLIZ MD, Ot Z99. 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 5 HYPERLIPIDEMIA, UNSPECIFIED 03/01/2019 BOOM MILLER MD Ot I10 ESSENTIAL (PRIMARY) HYPERTENSION 03/01/2019 BOOM MILLER MD Ot I25. 10 ATHSCL HEART DISEASE OF [place] CORONARY 03/01/2019 BOOM MILLER MD Ot R07. 89 OTHER CHEST PAIN 03/01/2019 Ot E78.5 HYPE RLIPIDEMIA, UNSPECIFIED 03/01/2019 Ot 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 03/01/2019 Ot I10 ESSENT IAL (PRIMARY) HYPERTENSION 03/01/2019 Ot I25.10 ATH SCL HEART DISEASE OF [place] CORONARY 03/01/2019 XANDER ESQUIVEL MD Ot M54.12 RADICULOPATHY, CERVICAL REGION 03/01/2019 XANDER ESQUIVEL MD Ot Z98 .1 ARTHRODESIS STATUS 03/01/2019 ILANA SANTAMARIA MD Ot M48.0 2 SPINAL STENOSIS, CERVICAL REGION 03/01/2019 ILANA SANTAMARIA MD Ot M50.3 0 OTHER CERVICAL DISC DEGENERATION, UNSP C 03/01/2019 BOOM MILLER MD Ot E78. 1 PURE HYPERGLYCERIDEMIA 03/01/2019 BOOM MILLER MD Ot E78. 2 MIXED HYPERLIPIDEMIA 03/01/2019 BOOM MILLER MD Ot I11. 0 HYPERTENSIVE HEART DISEASE WITH HEART FA 03/01/2019 BOOM MILLER MD Ot I34. 0 NONRHEUMATIC MITRAL (VALVE) INSUFFICIENC 03/01/2019 BOOM MILLER MD Ot I35. 8 OTHER NONRHEUMATIC AORTIC VALVE DISORDER 03/01/2019 BOOM MILLER MD Ot I51. 7 CARDIOMEGALY 03/01/2019 BOOM MILLER MD Ot R07. 89 OTHER CHEST PAIN 03/01/2019 BOOM MILLER MD Ot E78. 1 PURE HYPERGLYCERIDEMIA 03/01/2019 BOOM MILLER MD Ot E78. 2 MIXED HYPERLIPIDEMIA 03/01/2019 BOOM MILLER MD Ot I11. 9 HYPERTENSIVE HEART DISEASE WITHOUT HEART 03/01/2019 BOOM MILLER MD Ot I34. 0 NONRHEUMATIC MITRAL (VALVE) INSUFFICIENC 03/01/2019 BOOM MILLER MD Ot I35. 8 OTHER NONRHEUMATIC AORTIC VALVE DISORDER 03/01/2019 BOOM MILLER MD Ot R07. 89 OTHER CHEST PAIN 03/01/2019 BOOM MILLER MD Ot E11. 9 TYPE 2 DIABETES MELLITUS WITHOUT COMPLIC 03/01/2019 BOOM MILLER MD Ot E66. 9 OBESITY, UNSPECIFIED 03/01/2019 BOOM MILLER MD Ot E78. 5 HYPERLIPIDEMIA, UNSPECIFIED 03/01/2019 BOOM MILLER MD Ot G47. 10 HYPERSOMNIA, UNSPECIFIED 03/01/2019 BOOM MILLER MD Ot G89. 29 OTHER CHRONIC PAIN 03/01/2019 BOOM MILLER MD Ot I10 ESSENTIAL (PRIMARY) HYPERTENSION 03/01/2019 BOOM MILLER MD, Ot I25. 10 ATHSCL HEART DISEASE OF [place] CORONARY 03/01/2019 BOOM MILLER MD, Ot I48. 91 UNSPECIFIED ATRIAL FIBRILLATION 03/01/2019 BOOM MILLER MD Ot R06. 83 SNORING 03/01/2019 BOOM MILLER MD, Ot Z68. 35 BODY MASS INDEX (BMI) 35.0-35.9, ADULT 03/01/2019 BOOM MILLER MD, Ot Z79. 4 FREIGHT CLAIM INVESTIGATOR (CURRENT) USE OF INSULIN 03/01/2019 BOOM MILLER MD, Ot Z79. 82 FREIGHT CLAIM INVESTIGATOR (CURRENT) USE OF ASPIRIN 03/01/2019 BOOM MILLER MD, Ot Z79.899 OTHER FREIGHT CLAIM INVESTIGATOR (CURRENT) DRUG THERAPY 03/01/2019 BOOM MILLER MD, Ot Z95. 5 PRESENCE OF CORONARY ANGIOPLASTY IMPLANT 03/01/2019 BOOM MILLER MD, Ot I48. 0 PAROXYSMAL ATRIAL FIBRILLATION 03/01/2019 BOOM MILLER MD, Ot Z51. 81 ENCOUNTER FOR THERAPEUTIC DRUG LEVEL MON 03/01/2019 BOOM MILLER MD, Ot I48. 0 PAROXYSMAL ATRIAL FIBRILLATION 03/01/2019 BOOM MILLER MD, Ot Z79. 01 FREIGHT CLAIM INVESTIGATOR (CURRENT) USE OF ANTICOAGULANT 03/01/2019 ILANA SANTAMARIA MD Ot I70.2 13 ATHSCL [place] ARTERIES OF [facility] 03/06/2019 ILANA SANTAMARIA MD Ot I70.2 13 ATHSCL [place] ARTERIES OF [facility] 03/10/2019 ILANA SANTAMARIA MD, Ot I70.9 0 UNSPECIFIED ATHEROSCLEROSIS Procedures Code Description Performed By Per formed On 00.40 PROC EDURE ON SINGLE VESSEL 11/13/2011 00.45 INSE RTION OF ONE VASCULAR STENT 11/13/2011 00.66 PERC UTANEOUS TRANSLUMINAL CORONARY ANGIO 11/13/2011 36.07 INSR T OF DRUG-ELUTING CORON ARTERY STENT 11/13/2011 37.22 LEFT HEART CARDIAC CATH 11/13/2011 88.53 LT H EART ANGIOCARDIOGRAM 11/13/2011 88.56 MICHELLE ARMANDO ARTERIOGR-2 CATH 11/13/[address]/INFUSE PLATELET INHIBITOR 11/13/2011 59680 ROUT INE VENIPUNCTURE 01/14/2012 30040 A1C (IN-HOUSE) 01/14/2012 71819 CMP 01/15/2012 [id number] GF R CALC (RESULT ONLY) 01/15/2012 42960 ROUT INE VENIPUNCTURE 04/13/2012 36788 BMP 04/13/2012 [id number] GF R CALC (RESULT ONLY) 04/13/2012 17551 A1C (IN-HOUSE) 04/25/2012 55441 MICR O ALBUMIN-IN HOUSE 04/25/2012 61977 MICR OALBUMIN 04/25/2012 00221 HEPA TITIS PROFILE 05/24/2012 08097 ROUT INE VENIPUNCTURE 08/05/2012 81862 A1C (IN-HOUSE) 08/05/2012 41767 CMP 08/05/2012 97533 LIPI D PANEL 08/05/2012 [id number] GF R CALC (RESULT ONLY) 08/05/2012 84679 A1C (IN-HOUSE) 11/10/2012 17528 A1C (IN-HOUSE) 02/24/2013 16350 ROUT INE VENIPUNCTURE 05/30/2013 98520 EKG, TRACING (IN-HOUSE) 05/30/2013 81395 LIPI D PANEL 05/30/2013 10322 MAGNESIUM 05/30/2013 38672 CBC 05/30/2013 [id number] GF R CALC (RESULT ONLY) 05/30/2013 69365 CMP 05/30/2013 69269 TSH 05/30/2013 26656 NUCL EAR STRESS TESTING 07/28/2013 96999 ECHO 2D 07/28/2013 86682 MAMM OGRAM, SCREENING 10/23/2013 16070 XRAY CERVICAL SPINE, 2 OR 3 VIEWS 02/20/2014 34269 XRAY WRIST RIGHT COMP MIN 3 VIEWS 03/06/2014 46092 A1C (IN-HOUSE) 03/23/2014 26830 XRAY CERVICAL SPINE, 2 OR 3 VIEWS 04/02/2014 [id number] PE RFORMANCE OF CARDIAC PACING, CONTINUOU 07/21/2018 [id number] IN SERT OF MONITOR DEV INTO CHEST SUBCU/F 07/24/2018 Results Test Result Range Automated blood complete blood count (he mogram) panel - 03/05/17 09:12 Blood leukocytes automated count (number/volume) 7.4 10*3/uL 4.3-11.0 Blood erythrocytes automated count (number/volume) 4.66 10*6/uL 4.35-5.85 Venous blood hemoglobin measurement (mass/volume) 12.8 g/dL 11.5-16.0 Blood hematocrit (volume fraction) 40 % 35-52 Automated erythrocyte mean corpuscular volume 86 [ foz_us] 80-99 Automated erythrocyte mean corpuscular h emoglobin (mass per erythrocyte) 28 pg 25-34 Automated erythrocyte mean corpuscular h emoglobin concentration measurement (mass/volume) 32 g/dL 32-36 Automated erythrocyte distribution width ratio 13. 7 % 10.0- 14.5 Automated blood platelet count (count/volume) 177 10*3/uL [...] 5-14 Serum or plasma urea nitrogen measurement (mass/volume ) 41 mg/dL 7-18 Serum or plasma creatinine measurement (mass/volume) 1.53 mg/dL 0.60-1.30 Serum or plasma urea nitrogen/creatinine mass ratio 27 NRG Serum or plasma creatinine measurement w ith calculation of estimated glomerular filtration rate 35 NRG Serum or plasma glucose measurement (mass/volume) 96 mg/dL 70-105 Serum or plasma calcium measurement (mass/volume) 9.7 mg/dL 8.5-10.1 Serum or plasma total bilirubin measurement (mass/volu me) 0.3 mg/dL 0.1-1.0 Serum or plasma alkaline phosphatase shereen surement (enzymatic activity/volume) 99 U/L 40-136 Serum or plasma aspartate aminotransfera se measurement (enzymatic activity/volume) 48 U/L 5-34 Serum or plasma alanine aminotransferase measurement (enzymatic activity/volume) 65 U/L 0-55 Serum or plasma protein measurement (mass/volume) 8.1 g/dL 6.4-8.2 Serum or plasma albumin measurement (mass/volume) 4.0 g/dL 3.2-4.5 Lipid 1996 panel - 03/05/17 09:12 Serum or plasma triglyceride measurement (mass/volume) 308 mg/dL <150 Serum or plasma cholesterol measurement (mass/volume) 267 mg/dL < 200 Serum or plasma cholesterol in HDL measurement (mass/v olume) 31 mg/dL 40-60 Cholesterol in LDL [mass/volume] in serum or plasma by direct assay 163 mg/dL 1-129 Serum or plasma cholesterol in VLDL measurement (mass/ volume) 62 mg/dL 5-40 PT panel in platelet poor plasma by coag ulation assay - 03/05/17 09:12 Prothrombin time (PT) in platelet poor plasma by coagu lation assay 13.3 s 12.2-14.7 INR in platelet poor plasma or blood by coagulation as say 1.0 0.8-1.4 Activated partial thromboplastin time (a PTT) in platelet poor plasma bycoagulation assay - 03/05/17 09:12 Activated partial thromboplastin time (a PTT) in platelet poor plasma bycoagulation assay 31 s 24-35 Complete urinalysis with reflex to cultu re - 03/05/17 09:12 Urine color determination YELLOW NRG Urine clarity determination CLEAR NR G Urine pH measurement by test strip 5 5-9 Specific gravity of urine by test strip 1.020 1.016-1.022 Urine protein assay by test strip, semi-quantitative 3+ NEGATIVE Urine glucose detection by automated test strip NE GATIVE NEGATIVE Erythrocytes detection in urine sediment by light micr oscopy NEGATIVE NEGATIVE Urine ketones detection by automated test strip NE GATIVE NEGATIVE Urine nitrite detection by test strip NEGATIVE NEGATIVE Urine total bilirubin detection by test strip NEGA TIVE NEGATIVE Urine urobilinogen measurement by automated test strip (mass/volume) NORMAL NORMAL Urine leukocyte esterase detection by dipstick 3+ NEGATIVE Automated urine sediment erythrocyte cou nt by microscopy (number/high power field) NONE NRG Automated urine sediment leukocyte count by microscopy (number/high power field) [HPF] NRG Bacteria detection in urine sediment by light microsco py FEW NRG Squamous epithelial cells detection in u rine sediment by light microscopy 0-2 NRG Crystals detection in urine sediment by light microsco py NONE NRG Casts detection in urine sediment by light microscopy PRESENT NRG Mucus detection in urine sediment by light microscopy NEGATIVE NRG Complete urinalysis with reflex to culture YES NRG Hyaline casts detection in urine sediment by light gerardo roscopy 0-2 NRG Bacterial urine culture - 03/05/17 09:12 Bacterial urine culture NG NRG Methicillin resistant Staphylococcus aur eus (MRSA) screening culture - 03/05/17 09:12 Methicillin resistant Staphylococcus aureus (MRSA) scr eening culture NEG NRG Capillary blood glucose measurement by g lucometer (mass/volume) - 03/05/17 13:20 Capillary blood glucose measurement by glucometer (mas s/volume) 70 mg/dL 70-110 Capillary blood glucose measurement by g lucometer (mass/volume) - 03/05/17 16:11 Capillary blood glucose measurement by glucometer (mas s/volume) 185 mg/dL 70-110 Capillary blood glucose measurement by g lucometer (mass/volume) - 03/05/17 21:02 Capillary blood glucose measurement by glucometer (mas s/volume) 185 mg/dL 70-110 Automated blood complete blood count (he mogram) panel - 03/06/17 03:36 Blood leukocytes automated count (number/volume) 6.5 10*3/uL 4.3-11.0 Blood erythrocytes automated count (number/volume) 4.45 10*6/uL 4.35-5.85 Venous blood hemoglobin measurement (mass/volume) 12.2 g/dL 11.5-16.0 Blood hematocrit (volume fraction) 38 % 35-52 Automated erythrocyte mean corpuscular volume 86 [ foz_us] 80-99 Automated erythrocyte mean corpuscular h emoglobin (mass per erythrocyte) 27 pg 25-34 Automated erythrocyte mean corpuscular h emoglobin concentration measurement (mass/volume) 32 g/dL 32-36 Automated erythrocyte distribution width ratio 13. 7 % 10.0- 14.5 Automated blood platelet count (count/volume) 150 10*3/uL 130-400 Automated blood platelet mean volume measurement 11.2 [foz_us] 7.4-10.4 Whole blood basic metabolic panel - 02/19 09/05 03:36 Serum or plasma sodium measurement (moles/volume) 140 mmol/L 135-145 Serum or plasma potassium measurement (moles/volume) 4.5 mmol/L 3.6-5.0 Serum or plasma chloride measurement (moles/volume) 107 mmol/L 98-107 Carbon dioxide 23 mmol/L 21-32 Serum or plasma anion gap determination (moles/volume) 10 mmol/L 5-14 Serum or plasma urea nitrogen measurement (mass/volume ) 31 mg/dL 7-18 Serum or plasma creatinine measurement (mass/volume) 1.22 mg/dL 0.60-1.30 Serum or plasma urea nitrogen/creatinine mass ratio 25 NRG Serum or plasma creatinine measurement w ith calculation of estimated glomerular filtration rate 45 NRG Serum or plasma glucose measurement (mass/volume) 145 mg/dL 70-105 Serum or plasma calcium measurement (mass/volume) 8.9 mg/dL 8.5-10.1 Automated blood complete blood count (he mogram) panel - 03/24/17 08:56 Blood leukocytes automated count (number/volume) 7.9 10*3/uL 4.3-11.0 Blood erythrocytes automated count (number/volume) 4.86 10*6/uL 4.35-5.85 Venous blood hemoglobin measurement (mass/volume) 13.4 g/dL 11.5-16.0 Blood hematocrit (volume fraction) 41 % 35-52 Automated erythrocyte mean corpuscular volume 84 [ foz_us] 80-99 Automated erythrocyte mean corpuscular h emoglobin (mass per erythrocyte) 28 pg 25-34 Automated erythrocyte mean corpuscular h emoglobin concentration measurement (mass/volume) 33 g/dL 32-36 Automated erythrocyte distribution width ratio 13. 3 % 10.0- 14.5 Automated blood platelet count (count/volume) 171 10*3/uL 130-400 Automated blood platelet mean volume measurement 10.6 [foz_us] 7.4-10.4 PT panel in platelet poor plasma by coag ulation assay - 03/24/17 08:56 Prothrombin time (PT) in platelet poor plasma by coagu lation assay 15.1 s 12.2-14.7 INR in platelet poor plasma or blood by coagulation as say 1.2 0.8-1.4 Activated partial thromboplastin time (a PTT) in platelet poor plasma bycoagulation assay - 03/24/17 08:56 Activated partial thromboplastin time (a PTT) in platelet poor plasma bycoagulation assay 37 s 24-35 Comprehensive metabolic panel - 03/24/17 08:56 Serum or plasma sodium measurement (moles/volume) 142 mmol/L 135-145 Serum or plasma potassium measurement (moles/volume) 4.5 mmol/L 3.6-5.0 Serum or plasma chloride measurement (moles/volume) 107 mmol/L 98-107 Carbon dioxide 22 mmol/L 21-32 Serum or plasma anion gap determination (moles/volume) 13 mmol/L 5-14 Serum or plasma urea nitrogen measurement (mass/volume ) 32 mg/dL 7-18 Serum or plasma creatinine measurement (mass/volume) 1.03 mg/dL 0.60-1.30 Serum or plasma urea nitrogen/creatinine mass ratio 31 NRG Serum or plasma creatinine measurement w ith calculation of estimated glomerular filtration rate 55 NRG Serum or plasma glucose measurement (mass/volume) 75 mg/dL 70-105 Serum or plasma calcium measurement (mass/volume) 9.9 mg/dL 8.5-10.1 Serum or plasma total bilirubin measurement (mass/volu me) 0.3 mg/dL 0.1-1.0 Serum or plasma alkaline phosphatase shereen surement (enzymatic activity/volume) 106 U/L 40-136 Serum or plasma aspartate aminotransfera se measurement (enzymatic activity/volume) 48 U/L 5-34 Serum or plasma alanine aminotransferase measurement (enzymatic activity/volume) 52 U/L 0-55 Serum or plasma protein measurement (mass/volume) 8.1 g/dL 6.4-8.2 Serum or plasma albumin measurement (mass/volume) 4.0 g/dL 3.2-4.5 Methicillin resistant Staphylococcus aur eus (MRSA) screening culture - 03/24/17 08:56 Methicillin resistant Staphylococcus aureus (MRSA) scr eening culture NEG NRG PT panel in platelet poor plasma by coag ulation assay - 03/29/17 16:51 Prothrombin time (PT) in platelet poor plasma by coagu lation assay 14.2 s 12.2-14.7 INR in platelet poor plasma or blood by coagulation as say 1.1 0.8-1.4 PT panel in platelet poor plasma by coag ulation assay - 04/08/17 18:55 Prothrombin time (PT) in platelet poor plasma by coagu lation assay 18.0 s 12.2-14.7 INR in platelet poor plasma or blood by coagulation as say 1.5 0.8-1.4 PT panel in platelet poor plasma by coag ulation assay - 04/15/17 13:28 Prothrombin time (PT) in platelet poor plasma by coagu lation assay 30.7 s 12.2-14.7 INR in platelet poor plasma or blood by coagulation as say 3.0 0.8-1.4 PT panel in platelet poor plasma by coag ulation assay - 05/17/17 16:45 Prothrombin time (PT) in platelet poor plasma by coagu lation assay 14.1 s 12.2-14.7 INR in platelet poor plasma or blood by coagulation as say 1.1 0.8-1.4 CMP - 01/17/18 14:37 GLUCOSE 262 mg/dL 65-99 UREA NITROGEN (BUN) 33 mg/dL 7-25 CREATININE 1.27 mg/dL 0.50-0.99 eGFR NON-AFR. [place] 46 mL/min/1.73m2 > OR = 60 eGFR 53 mL/min/1.73m2 > OR = 60 BUN/CREATININE RATIO 26 (calc) 6-22 SODIUM 139 mmol/L 135-146 POTASSIUM 4.9 mmol/L 3.5-5.3 CHLORIDE 100 mmol/L 98-110 CARBON DIOXIDE 30 mmol/L 20-32 CALCIUM 9.2 mg/dL 8.6-10.4 PROTEIN, TOTAL 7.4 g/dL 6.1-8.1 ALBUMIN 3.9 g/dL 3.6-5.1 GLOBULIN 3.5 g/dL (calc) 1.9-3.7 ALBUMIN/GLOBULIN RATIO 1.1 (calc) 1.0-2. 5 BILIRUBIN, TOTAL 0.4 mg/dL 0.2-1.2 ALKALINE PHOSPHATASE 78 U/L 33-130 AST 37 U/L 10-35 ALT 35 U/L 6-29 PT panel in platelet poor plasma by coag ulation assay - 02/05/18 16:45 Prothrombin time (PT) in platelet poor plasma by coagu lation assay 24.6 s 12.2-14.7 INR in platelet poor plasma or blood by coagulation as say 2.2 0.8-1.4 PT panel in platelet poor plasma by coag ulation assay - 03/01/18 15:10 Prothrombin time (PT) in platelet poor plasma by coagu lation assay 13.4 s 12.2-14.7 INR in platelet poor plasma or blood by coagulation as say 1.0 0.8-1.4 Complete urinalysis with reflex to cultu re - 03/09/18 08:48 Urine color determination YELLOW NRG Urine clarity determination SLIGHTLY CLOUDY NRG Urine pH measurement by test strip 5 5-9 Specific gravity of urine by test strip 1.020 1.016-1.022 Urine protein assay by test strip, semi-quantitative 3+ NEGATIVE Urine glucose detection by automated test strip NE GATIVE NEGATIVE Erythrocytes detection in urine sediment by light micr oscopy NEGATIVE NEGATIVE Urine ketones detection by automated test strip NE GATIVE NEGATIVE Urine nitrite detection by test strip NEGATIVE NEGATIVE Urine total bilirubin detection by test strip NEGA TIVE NEGATIVE Urine urobilinogen measurement by automated test strip (mass/volume) NORMAL NORMAL Urine leukocyte esterase detection by dipstick 3+ NEGATIVE Automated urine sediment erythrocyte cou nt by microscopy (number/high power field) RARE NRG Automated urine sediment leukocyte count by microscopy (number/high power field) [HPF] NRG Bacteria detection in urine sediment by light microsco py MODERATE NRG Squamous epithelial cells detection in u rine sediment by light microscopy 0-2 NRG Crystals detection in urine sediment by light microsco py NONE NRG Casts detection in urine sediment by light microscopy PRESENT NRG Mucus detection in urine sediment by light microscopy NEGATIVE NRG Complete urinalysis with reflex to culture YES NRG Hyaline casts detection in urine sediment by light gerardo roscopy 5-10 NRG Renal epithelial cells detection in urin e sediment by light microscopy NONE NRG Bacterial urine culture - 03/09/18 08:48 Bacterial urine culture NG NRG Automated blood complete blood count (he mogram) panel - 03/09/18 08:56 Blood leukocytes automated count (number/volume) 6.4 10*3/uL 4.3-11.0 Blood erythrocytes automated count (number/volume) 4.87 10*6/uL 4.35-5.85 Venous blood hemoglobin measurement (mass/volume) 12.6 g/dL 11.5-16.0 Blood hematocrit (volume fraction) 40 % 35-52 Automated erythrocyte mean corpuscular volume 83 [ foz_us] 80-99 Automated erythrocyte mean corpuscular h emoglobin (mass per erythrocyte) 26 pg 25-34 Automated erythrocyte mean corpuscular h emoglobin concentration measurement (mass/volume) 31 g/dL 32-36 Automated erythrocyte distribution width ratio 15. 0 % 10.0- 14.5 Automated blood platelet count (count/volume) 182 10*3/uL 130-400 Automated blood platelet mean volume measurement 10.4 [foz_us] 7.4-10.4 PT panel in platelet poor plasma by coag ulation assay - 03/09/18 08:56 Prothrombin time (PT) in platelet poor plasma by coagu lation assay 21.3 s 12.2-14.7 INR in platelet poor plasma or blood by coagulation as say 1.8 0.8-1.4 Activated partial thromboplastin time (a PTT) in platelet poor plasma bycoagulation assay - 03/09/18 08:56 Activated partial thromboplastin time (a PTT) in platelet poor plasma bycoagulation assay 47 s 24-35 Comprehensive metabolic panel - 03/09/18 08:56 Serum or plasma sodium measurement (moles/volume) 138 mmol/L 135-145 Serum or plasma potassium measurement (moles/volume) 3.9 mmol/L 3.6-5.0 Serum or plasma chloride measurement (moles/volume) 102 mmol/L 98-107 Carbon dioxide 23 mmol/L 21-32 Serum or plasma anion gap determination (moles/volume) 13 mmol/L 5-14 Serum or plasma urea nitrogen measurement (mass/volume ) 35 mg/dL 7-18 Serum or plasma creatinine measurement (mass/volume) 1.39 mg/dL 0.60-1.30 Serum or plasma urea nitrogen/creatinine mass ratio 25 NRG Serum or plasma creatinine measurement w ith calculation of estimated glomerular filtration rate 39 NRG Serum or plasma glucose measurement (mass/volume) 84 mg/dL 70-105 Serum or plasma calcium measurement (mass/volume) 10.2 mg/dL 8.5-10.1 Serum or plasma total bilirubin measurement (mass/volu me) 0.3 mg/dL 0.1-1.0 Serum or plasma alkaline phosphatase shereen surement (enzymatic activity/volume) 94 U/L 40-136 Serum or plasma aspartate aminotransfera se measurement (enzymatic activity/volume) 65 U/L 5-34 Serum or plasma alanine aminotransferase measurement (enzymatic activity/volume) 54 U/L 0-55 Serum or plasma protein measurement (mass/volume) 8.7 g/dL 6.4-8.2 Serum or plasma albumin measurement (mass/volume) 4.3 g/dL 3.2-4.5 CALCIUM CORRECTED 10.0 mg/dL 8.5-10.1 Lipid 1996 panel - 03/09/18 08:56 Serum or plasma triglyceride measurement (mass/volume) 465 mg/dL <150 Serum or plasma cholesterol measurement (mass/volume) 232 mg/dL < 200 Serum or plasma cholesterol in HDL measurement (mass/v olume) 30 mg/dL 40-60 Cholesterol in LDL [mass/volume] in serum or plasma by direct assay 124 mg/dL 1-129 Serum or plasma cholesterol in VLDL measurement (mass/ volume) 93 mg/dL 5-40 Methicillin resistant Staphylococcus aur eus (MRSA) screening culture - 03/09/18 08:56 Methicillin resistant Staphylococcus aureus (MRSA) scr eening culture NEG NRG Influenza virus A and B antigen detectio n - 07/11/18 21:58 FLU RESULT NEGATIVE FOR INFLUENZA A AND B ANTIGENS BY IA NRG Complete blood count (CBC) with automate d white blood cell (WBC) differential - 07/11/18 22:05 Blood leukocytes automated count (number/volume) 11.8 10*3/uL 4.3-11.0 Blood erythrocytes automated count (number/volume) 4.55 10*6/uL 4.35-5.85 Venous blood hemoglobin measurement (mass/volume) 12.1 g/dL 11.5-16.0 Blood hematocrit (volume fraction) 40 % 35-52 Automated erythrocyte mean corpuscular volume 87 [ foz_us] 80-99 Automated erythrocyte mean corpuscular h emoglobin (mass per erythrocyte) 27 pg 25-34 Automated erythrocyte mean corpuscular h emoglobin concentration measurement (mass/volume) 31 g/dL 32-36 Automated erythrocyte distribution width ratio 14. 3 % 10.0- 14.5 Automated blood platelet count (count/volume) 174 10*3/uL [...] 10*3 1.0-4.0 Blood monocytes automated count (number/volume) 0. 4 10*3 0.0-1.0 Automated eosinophil count 0.1 10*3/uL 0 .0-0.3 Automated blood basophil count (count/volume) 0.1 10*3/uL 0.0-0.1 Comprehensive metabolic panel - 07/11/18 22:05 Serum or plasma sodium measurement (moles/volume) 142 mmol/L 135-145 Serum or plasma potassium measurement (moles/volume) 4.4 mmol/L 3.6-5.0 Serum or plasma chloride measurement (moles/volume) 101 mmol/L 98-107 Carbon dioxide 22 mmol/L 21-32 Serum or plasma anion gap determination (moles/volume) 19 mmol/L 5-14 Serum or plasma urea nitrogen measurement (mass/volume ) 25 mg/dL 7-18 Serum or plasma creatinine measurement (mass/volume) 1.04 mg/dL 0.60-1.30 Serum or plasma urea nitrogen/creatinine mass ratio 24 NRG Serum or plasma creatinine measurement w ith calculation of estimated glomerular filtration rate 54 NRG Serum or plasma glucose measurement (mass/volume) 223 mg/dL 70-105 Serum or plasma calcium measurement (mass/volume) 9.6 mg/dL 8.5-10.1 Serum or plasma total bilirubin measurement (mass/volu me) 0.7 mg/dL 0.1-1.0 Serum or plasma alkaline phosphatase shereen surement (enzymatic activity/volume) 106 U/L 40-136 Serum or plasma aspartate aminotransfera se measurement (enzymatic activity/volume) 53 U/L 5-34 Serum or plasma alanine aminotransferase measurement (enzymatic activity/volume) 48 U/L 0-55 Serum or plasma protein measurement (mass/volume) 8.2 g/dL 6.4-8.2 Serum or plasma albumin measurement (mass/volume) 4.1 g/dL 3.2-4.5 CALCIUM CORRECTED 9.5 mg/dL 8.5-10.1 TROPONIN T - 07/11/18 22:05 TROPONIN T 65 % <=10 PT panel in platelet poor plasma by coag ulation assay - 07/11/18 22:05 Prothrombin time (PT) in platelet poor plasma by coagu lation assay 14.8 s 12.2-14.7 INR in platelet poor plasma or blood by coagulation as say 1.1 0.8-1.4 Activated partial thromboplastin time (a PTT) in platelet poor plasma bycoagulation assay - 07/11/18 22:05 Activated partial thromboplastin time (a PTT) in platelet poor plasma bycoagulation assay 34 s 24-35 Fibrin D-dimer FEU measurement in platel et poor plasma (mass/volume) - 07/11/18 22:05 Fibrin D-dimer FEU measurement in platelet poor plasma (mass/volume) 1.22 ug/mL 0.00-0.49 Blood lactic acid measurement (moles/vol ume) - 07/11/18 22:18 Blood lactic acid measurement (moles/volume) 2.52 mmol/L 0.50-2.00 Bacterial blood culture - 07/11/18 22:18 Bacterial blood culture NG NRG Arterial blood gas measurement - 9 22:40 Blood pCO2 37 mm[Hg] 35-45 Blood pO2 61 mm[Hg] 79-93 Arterial blood bicarbonate measurement (moles/volume) 28 mmol/L 23-27 Arterial blood base excess by calculation 4.0 mmol /L -2.5-2.5 Arterial blood oxygen saturation measurement 93 % 94-100 * Inhaled oxygen flow rate 5L NRG Arterial blood pH measurement with patient temperature correction 7.48 7.37-7.43 Arterial blood carbon dioxide, total measurement (mole s/volume) 28.7 mmol/L 21.0-31.0 Body site LT RAD NRG Assessment of wrist artery patency prior to arterial p uncture POS NRG Setting of ventilation mode NO NR G Measurement of body temperature 99.6 NRG Bacterial blood culture - 07/11/18 23:14 Bacterial blood culture NG NRG Complete urinalysis with reflex to cultu re - 07/11/18 23:57 Urine color determination YELLOW NRG Urine clarity determination SL CLOUDY N RG Urine pH measurement by test strip 5.5 5-9 Specific gravity of urine by test strip 1.025 1.016-1.022 Urine protein assay by test strip, semi-quantitative 3+ NEGATIVE Urine glucose detection by automated test strip 1+ NEGATIVE Erythrocytes detection in urine sediment by light micr oscopy TRACE-L NEGATIVE Urine ketones detection by automated test strip NE GATIVE NEGATIVE Urine nitrite detection by test strip NEGATIVE NEGATIVE Urine total bilirubin detection by test strip NEGA TIVE NEGATIVE Urine urobilinogen measurement by automated test strip (mass/volume) 0.2 mg/dL NORMAL Urine leukocyte esterase detection by dipstick TRA CE NEGATIVE Automated urine sediment erythrocyte cou nt by microscopy (number/high power field) [HPF] NRG Automated urine sediment leukocyte count by microscopy (number/high power field) [HPF] NRG Bacteria detection in urine sediment by light microsco py MODERATE NRG Squamous epithelial cells detection in u rine sediment by light microscopy 2-5 NRG Crystals detection in urine sediment by light microsco py NONE NRG Casts detection in urine sediment by light microscopy NONE NRG Mucus detection in urine sediment by light microscopy NEGATIVE NRG Complete urinalysis with reflex to culture CULTURE PENDING NRG Renal epithelial cells detection in urin e sediment by light microscopy 5-10 NRG Bacterial urine culture - 07/11/18 23:57 Bacterial urine culture NG NRG Serum or plasma lactate measurement (mol es/volume) - 07/12/18 00:20 Serum or plasma lactate measurement (moles/volume) 2.86 mmol/L 0.50-2.00 PROBNP FS - 07/12/18 00:20 PROBNP FS 4517.0 pg/mL <75.0 Blood CBC with ordered manual differenti al panel - 07/21/18 18:34 Blood leukocytes automated count (number/volume) 12.6 10*3/uL 4.3-11.0 Blood erythrocytes automated count (number/volume) 4.43 10*6/uL 4.35-5.85 Venous blood hemoglobin measurement (mass/volume) 11.6 g/dL 11.5-16.0 Blood hematocrit (volume fraction) 39 % 35-52 Automated erythrocyte mean corpuscular volume 89 [ foz_us] 80-99 Automated erythrocyte mean corpuscular h emoglobin (mass per erythrocyte) 26 pg 25-34 Automated erythrocyte mean corpuscular h emoglobin concentration measurement (mass/volume) 29 g/dL 32-36 Automated erythrocyte distribution width ratio 14. 0 % 10.0- 14.5 Automated blood platelet count (count/volume) 396 10*3/uL 130-400 Automated blood platelet mean volume measurement 10.9 [foz_us] 7.4-10.4 Automated blood neutrophils/100 leukocytes 68 % 42-75 Automated blood lymphocytes/100 leukocytes 23 % 12-44 Blood monocytes/100 leukocytes 4 % NRG Automated blood eosinophils/100 leukocytes 2 % 0-10 Automated blood basophils/100 leukocytes 1 % 0-10 Blood neutrophils automated count (number/volume) 8.5 10*3 1.8-7.8 Blood lymphocytes automated count (number/volume) 2.9 10*3 1.0-4.0 Blood monocytes automated count (number/volume) 0. 6 10*3 0.0-1.0 Automated eosinophil count 0.2 10*3/uL 0 .0-0.3 Automated blood basophil count (count/volume) 0.1 10*3/uL 0.0-0.1 Manual blood segmented neutrophils/100 leukocytes 59 % NRG Blood band neutrophils/100 leukocytes 6 % NRG Manual blood lymphocytes/100 leukocytes 29 % NRG Manual eosinophils/100 leukocytes in nose 1 % NRG Manual blood basophils/100 leukocytes 0 % NRG Manual blood metamyelocytes/100 leukocytes 0 % NRG Manual blood myelocytes/100 leukocytes 1 % NRG PT panel in platelet poor plasma by coag ulation assay - 07/21/18 18:34 Prothrombin time (PT) in platelet poor plasma by coagu lation assay 14.8 s 12.2-14.7 INR in platelet poor plasma or blood by coagulation as say 1.1 0.8-1.4 Comprehensive metabolic panel - 07/21/18 18:34 Serum or plasma sodium measurement (moles/volume) 142 mmol/L 135-145 Serum or plasma potassium measurement (moles/volume) 5.6 mmol/L 3.6-5.0 Serum or plasma chloride measurement (moles/volume) 103 mmol/L 98-107 Carbon dioxide 25 mmol/L 21-32 Serum or plasma anion gap determination (moles/volume) 14 mmol/L 5-14 Serum or plasma urea nitrogen measurement (mass/volume ) 51 mg/dL 7-18 Serum or plasma creatinine measurement (mass/volume) 2.42 mg/dL 0.60-1.30 Serum or plasma urea nitrogen/creatinine mass ratio 21 NRG Serum or plasma creatinine measurement w ith calculation of estimated glomerular filtration rate 20 NRG Serum or plasma glucose measurement (mass/volume) 82 mg/dL 70-105 Serum or plasma calcium measurement (mass/volume) 9.3 mg/dL 8.5-10.1 Serum or plasma total bilirubin measurement (mass/volu me) 0.3 mg/dL 0.1-1.0 Serum or plasma alkaline phosphatase shereen surement (enzymatic activity/volume) 113 U/L 40-136 Serum or plasma aspartate aminotransfera se measurement (enzymatic activity/volume) 72 U/L 5-34 Serum or plasma alanine aminotransferase measurement (enzymatic activity/volume) 55 U/L 0-55 Serum or plasma protein measurement (mass/volume) 7.7 g/dL 6.4-8.2 Serum or plasma albumin measurement (mass/volume) 3.4 g/dL 3.2-4.5 CALCIUM CORRECTED 9.8 mg/dL 8.5-10.1 TROPONIN T - 07/21/18 18:34 TROPONIN T 46 % <=10 Capillary blood glucose measurement by g lucometer (mass/volume) - 07/21/18 22:01 Capillary blood glucose measurement by glucometer (mas s/volume) 91 mg/dL 70-110 Automated blood complete blood count (he mogram) panel - 07/22/18 03:30 Blood leukocytes automated count (number/volume) 10.2 10*3/uL 4.3-11.0 Blood erythrocytes automated count (number/volume) 4.03 10*6/uL 4.35-5.85 Venous blood hemoglobin measurement (mass/volume) 10.7 g/dL 11.5-16.0 Blood hematocrit (volume fraction) 35 % 35-52 Automated erythrocyte mean corpuscular volume 87 [ foz_us] 80-99 Automated erythrocyte mean corpuscular h emoglobin (mass per erythrocyte) 27 pg 25-34 Automated erythrocyte mean corpuscular h emoglobin concentration measurement (mass/volume) 31 g/dL 32-36 Automated erythrocyte distribution width ratio 14. 3 % 10.0- 14.5 Automated blood platelet count (count/volume) 288 10*3/uL 130-400 Automated blood platelet mean volume measurement 10.8 [foz_us] 7.4-10.4 Whole blood basic metabolic panel - 06/07 03:30 Serum or plasma sodium measurement (moles/volume) 140 mmol/L 135-145 Serum or plasma potassium measurement (moles/volume) 5.2 mmol/L 3.6-5.0 Serum or plasma chloride measurement (moles/volume) 108 mmol/L 98-107 Carbon dioxide 20 mmol/L 21-32 Serum or plasma anion gap determination (moles/volume) 12 mmol/L 5-14 Serum or plasma urea nitrogen measurement (mass/volume ) 54 mg/dL 7-18 Serum or plasma creatinine measurement (mass/volume) 2.01 mg/dL 0.60-1.30 Serum or plasma urea nitrogen/creatinine mass ratio 27 NRG Serum or plasma creatinine measurement w ith calculation of estimated glomerular filtration rate 25 NRG Serum or plasma glucose measurement (mass/volume) 49 mg/dL 70-105 Serum or plasma calcium measurement (mass/volume) 8.7 mg/dL 8.5-10.1 Serum or plasma phosphate measurement (m ass/volume) - 07/22/18 03:30 Serum or plasma phosphate measurement (mass/volume) 5.1 mg/dL 2.3-4.7 Magnesium - 07/22/18 03:30 Magnesium 1.9 mg/dL 1.8-2.4 Capillary blood glucose measurement by g lucometer (mass/volume) - 07/22/18 04:59 Capillary blood glucose measurement by glucometer (mas s/volume) 149 mg/dL 70-110 Fibrin D-dimer FEU measurement in platel et poor plasma (mass/volume) - 07/22/18 18:55 Fibrin D-dimer FEU measurement in platelet poor plasma (mass/volume) 1.72 ug/mL 0.00-0.49 Serum or plasma troponin i.cardiac measu rement (mass/volume) - 07/22/18 18:55 Serum or plasma troponin i.cardiac measurement (mass/v olume) 0.052 ng/mL <0.028 Serum or plasma lithium measurement (mol es/volume) - 07/22/18 18:55 BNP level 711.3 pg/mL <100.0 Capillary blood glucose measurement by g lucometer (mass/volume) - 07/22/18 20:17 Capillary blood glucose measurement by glucometer (mas s/volume) 257 mg/dL 70-110 Serum or plasma troponin i.cardiac measu rement (mass/volume) - 07/22/18 21:26 Serum or plasma troponin i.cardiac measurement (mass/v olume) 0.068 ng/mL <0.028 Automated blood complete blood count ( mogram) panel - 07/23/18 03:14 Blood leukocytes automated count (number/volume) 7.2 10*3/uL 4.3-11.0 Blood erythrocytes automated count (number/volume) 4.12 10*6/uL 4.35-5.85 Venous blood hemoglobin measurement (mass/volume) 10.8 g/dL 11.5-16.0 Blood hematocrit (volume fraction) 36 % 35-52 Automated erythrocyte mean corpuscular volume 86 [ foz_us] 80-99 Automated erythrocyte mean corpuscular h emoglobin (mass per erythrocyte) 26 pg 25-34 Automated erythrocyte mean corpuscular h emoglobin concentration measurement (mass/volume) 30 g/dL 32-36 Automated erythrocyte distribution width ratio 13. 9 % 10.0- 14.5 Automated blood platelet count (count/volume) 197 10*3/uL 130-400 Automated blood platelet mean volume measurement 10.4 [foz_us] 7.4-10.4 Whole blood basic metabolic panel - 07/08 03:14 Serum or plasma sodium measurement (moles/volume) 139 mmol/L 135-145 Serum or plasma potassium measurement (moles/volume) 4.9 mmol/L 3.6-5.0 Serum or plasma chloride measurement (moles/volume) 103 mmol/L 98-107 Carbon dioxide 26 mmol/L 21-32 Serum or plasma anion gap determination (moles/volume) 10 mmol/L 5-14 Serum or plasma urea nitrogen measurement (mass/volume ) 29 mg/dL 7-18 Serum or plasma creatinine measurement (mass/volume) 1.34 mg/dL 0.60-1.30 Serum or plasma urea nitrogen/creatinine mass ratio 22 NRG Serum or plasma creatinine measurement w ith calculation of estimated glomerular filtration rate 40 NRG Serum or plasma glucose measurement (mass/volume) 215 mg/dL 70-105 Serum or plasma calcium measurement (mass/volume) 9.4 mg/dL 8.5-10.1 Serum or plasma phosphate measurement (m ass/volume) - 07/23/18 03:14 Serum or plasma phosphate measurement (mass/volume) 2.9 mg/dL 2.3-4.7 Magnesium - 07/23/18 03:14 Magnesium 1.8 mg/dL 1.8-2.4 Capillary blood glucose measurement by g lucometer (mass/volume) - 07/23/18 21:20 Capillary blood glucose measurement by glucometer (mas s/volume) 267 mg/dL 70-110 Complete blood count (CBC) with automate d white blood cell (WBC) differential - 07/24/18 03:00 Blood leukocytes automated count (number/volume) 7.3 10*3/uL 4.3-11.0 Blood erythrocytes automated count (number/volume) 4.15 10*6/uL 4.35-5.85 Venous blood hemoglobin measurement (mass/volume) 10.9 g/dL 11.5-16.0 Blood hematocrit (volume fraction) 36 % 35-52 Automated erythrocyte mean corpuscular volume 86 [ foz_us] 80-99 Automated erythrocyte mean corpuscular h emoglobin (mass per erythrocyte) 26 pg 25-34 Automated erythrocyte mean corpuscular h emoglobin concentration measurement (mass/volume) 31 g/dL 32-36 Automated erythrocyte distribution width ratio 14. 0 % 10.0- 14.5 Automated blood platelet count (count/volume) 197 10*3/uL 130-400 Automated blood platelet mean volume measurement 10.6 [foz_us] 7.4-10.4 Automated blood neutrophils/100 leukocytes 68 % 42-75 Automated blood lymphocytes/100 leukocytes 23 % 12-44 Blood monocytes/100 leukocytes 7 % 0-12 Automated blood eosinophils/100 leukocytes 2 % 0-10 Automated blood basophils/100 leukocytes 0 % 0-10 Blood neutrophils automated count (number/volume) 4.9 10*3 1.8-7.8 Blood lymphocytes automated count (number/volume) 1.7 10*3 1.0-4.0 Blood monocytes automated count (number/volume) 0. 5 10*3 0.0-1.0 Automated eosinophil count 0.2 10*3/uL 0 .0-0.3 Automated blood basophil count (count/volume) 0.0 10*3/uL 0.0-0.1 Whole blood basic metabolic panel - 08/07 03:00 Serum or plasma sodium measurement (moles/volume) 136 mmol/L 135-145 Serum or plasma potassium measurement (moles/volume) 4.6 mmol/L 3.6-5.0 Serum or plasma chloride measurement (moles/volume) 99 mmol/L 98-107 Carbon dioxide 28 mmol/L 21-32 Serum or plasma anion gap determination (moles/volume) 9 mmol/L 5-14 Serum or plasma urea nitrogen measurement (mass/volume ) 23 mg/dL 7-18 Serum or plasma creatinine measurement (mass/volume) 1.18 mg/dL 0.60-1.30 Serum or plasma urea nitrogen/creatinine mass ratio 19 NRG Serum or plasma creatinine measurement w ith calculation of estimated glomerular filtration rate 47 NRG Serum or plasma glucose measurement (mass/volume) 202 mg/dL 70-105 Serum or plasma calcium measurement (mass/volume) 9.3 mg/dL 8.5-10.1 Serum or plasma phosphate measurement (m ass/volume) - 07/24/18 03:00 Serum or plasma phosphate measurement (mass/volume) 2.5 mg/dL 2.3-4.7 Magnesium - 07/24/18 03:00 Magnesium 1.5 mg/dL 1.8-2.4 Lipid 1996 panel - 07/24/18 03:00 Serum or plasma triglyceride measurement (mass/volume) 126 mg/dL <150 Serum or plasma cholesterol measurement (mass/volume) 143 mg/dL < 200 Serum or plasma cholesterol in HDL measurement (mass/v olume) 31 mg/dL 40-60 Cholesterol in LDL [mass/volume] in serum or plasma by direct assay 94 mg/dL 1-129 Serum or plasma cholesterol in VLDL measurement (mass/ volume) 25 mg/dL 5-40 MICROALBUMIN/CREATININE RATIO, URINE - 0 08/18/18 11:07 CREATININE, RANDOM URINE 26 mg/dL 20-27 5 MICROALBUMIN 8.6 mg/dL See Note: MICROALBUMIN/CREATININE RATIO, RANDOM URINE 331 mcg/mg creat <30 MICROALBUMIN/CREATININE RATIO, URINE - 0 08/29/18 16:14 CREATININE, RANDOM URINE 107 mg/dL 20-27 5 MICROALBUMIN 74.2 mg/dL See Note: MICROALBUMIN/CREATININE RATIO, RANDOM URINE 693 mcg/mg creat <30 Complete blood count (CBC) with automate d white blood cell (WBC) differential - 01/09/19 17:20 Blood leukocytes automated count (number/volume) 10.6 10*3/uL 4.3-11.0 Blood erythrocytes automated count (number/volume) 3.80 10*6/uL 4.35-5.85 Venous blood hemoglobin measurement (mass/volume) 10.4 g/dL 11.5-16.0 Blood hematocrit (volume fraction) 34 % 35-52 Automated erythrocyte mean corpuscular volume 88 [ foz_us] 80-99 Automated erythrocyte mean corpuscular h emoglobin (mass per erythrocyte) 27 pg 25-34 Automated erythrocyte mean corpuscular h emoglobin concentration measurement (mass/volume) 31 g/dL 32-36 Automated erythrocyte distribution width ratio 14. 7 % 10.0- 14.5 Automated blood platelet count (count/volume) 135 10*3/uL 130-400 Automated blood platelet mean volume measurement 11.4 [foz_us] 7.4-10.4 Automated blood neutrophils/100 leukocytes 79 % 42-75 Automated blood lymphocytes/100 leukocytes 14 % 12-44 Blood monocytes/100 leukocytes 5 % 0-12 Automated blood eosinophils/100 leukocytes 2 % 0-10 Automated blood basophils/100 leukocytes 0 % 0-10 Blood neutrophils automated count (number/volume) 8.4 10*3 1.8-7.8 Blood lymphocytes automated count (number/volume) 1.5 10*3 1.0-4.0 Blood monocytes automated count (number/volume) 0. 6 10*3 0.0-1.0 Automated eosinophil count 0.2 10*3/uL 0 .0-0.3 Automated blood basophil count (count/volume) 0.0 10*3/uL 0.0-0.1 PT panel in platelet poor plasma by coag ulation assay - 01/09/19 17:20 Prothrombin time (PT) in platelet poor plasma by coagu lation assay 19.9 s 12.2-14.7 INR in platelet poor plasma or blood by coagulation as say 1.6 0.8-1.4 Activated partial thromboplastin time (a PTT) in platelet poor plasma bycoagulation assay - 01/09/19 17:20 Activated partial thromboplastin time (a PTT) in platelet poor plasma bycoagulation assay 52 s 24-35 Blood lactic acid measurement (moles/vol ume) - 01/09/19 17:20 Blood lactic acid measurement (moles/volume) 0.91 mmol/L 0.50-2.00 Comprehensive metabolic panel - 01/09/19 17:20 Serum or plasma sodium measurement (moles/volume) 141 mmol/L 135-145 Serum or plasma potassium measurement (moles/volume) 4.8 mmol/L 3.6-5.0 Serum or plasma chloride measurement (moles/volume) 105 mmol/L 98-107 Carbon dioxide 23 mmol/L 21-32 Serum or plasma anion gap determination (moles/volume) 13 mmol/L 5-14 Serum or plasma urea nitrogen measurement (mass/volume ) 36 mg/dL 7-18 Serum or plasma creatinine measurement (mass/volume) 1.78 mg/dL 0.60-1.30 Serum or plasma urea nitrogen/creatinine mass ratio 20 NRG Serum or plasma creatinine measurement w ith calculation of estimated glomerular filtration rate 29 NRG Serum or plasma glucose measurement (mass/volume) 94 mg/dL 70-105 Serum or plasma calcium measurement (mass/volume) 9.8 mg/dL 8.5-10.1 Serum or plasma total bilirubin measurement (mass/volu me) 1.1 mg/dL 0.1-1.0 Serum or plasma alkaline phosphatase shereen surement (enzymatic activity/volume) 89 U/L 40-136 Serum or plasma aspartate aminotransfera se measurement (enzymatic activity/volume) 48 U/L 5-34 Serum or plasma alanine aminotransferase measurement (enzymatic activity/volume) 43 U/L 0-55 Serum or plasma protein measurement (mass/volume) 8.8 g/dL 6.4-8.2 Serum or plasma albumin measurement (mass/volume) 4.0 g/dL 3.2-4.5 CALCIUM CORRECTED 9.8 mg/dL 8.5-10.1 Serum or plasma troponin i.cardiac measu rement (mass/volume) - 01/09/19 17:20 Serum or plasma troponin i.cardiac measurement (mass/v olume) 0.048 ng/mL <0.028 Influenza virus A and B antigen detectio n - 01/09/19 17:20 FLU RESULT NEGATIVE FOR INFLUENZA A AND B ANTIGENS BY IA [facility] Bacterial blood culture - 01/09/19 17:20 Bacterial blood culture NG [facility] Arterial blood gas measurement - 9 17:27 Blood pCO2 42 mm[Hg] 35-45 Blood pO2 100 mm[Hg] 79-93 Arterial blood bicarbonate measurement (moles/volume) 26 mmol/L 23-27 Arterial blood base excess by calculation 1.1 mmol /L -2.5-2.5 Arterial blood oxygen saturation measurement 98 % 94-100 * Inhaled oxygen flow rate 8L NRG Arterial blood pH measurement with patient temperature correction 7.40 7.37-7.43 Arterial blood carbon dioxide, total measurement (mole s/volume) 26.8 mmol/L 21.0-31.0 Body site LEFT RADIAL NRG Assessment of wrist artery patency prior to arterial p uncture YES-POS NRG Setting of ventilation mode NO NR G Measurement of body temperature 36.4 NRG Bacterial blood culture - 01/09/19 17:55 Bacterial blood culture NG NRG Complete urinalysis with reflex to cultu re - 01/09/19 18:41 Urine color determination YELLOW NRG Urine clarity determination SL CLOUDY N RG Urine pH measurement by test strip 5 5-9 Specific gravity of urine by test strip 1.020 1.016-1.022 Urine protein assay by test strip, semi-quantitative 3+ NEGATIVE Urine glucose detection by automated test strip NE GATIVE NEGATIVE Erythrocytes detection in urine sediment by light micr oscopy 1+ NEGATIVE Urine ketones detection by automated test strip NE GATIVE NEGATIVE Urine nitrite detection by test strip NEGATIVE NEGATIVE Urine total bilirubin detection by test strip NEGA TIVE NEGATIVE Urine urobilinogen measurement by automated test strip (mass/volume) NORMAL NORMAL Urine leukocyte esterase detection by dipstick 2+ NEGATIVE Automated urine sediment erythrocyte cou nt by microscopy (number/high power field) RARE NRG Automated urine sediment leukocyte count by microscopy (number/high power field) [HPF] NRG Bacteria detection in urine sediment by light microsco py NEGATIVE NRG Squamous epithelial cells detection in u rine sediment by light microscopy 0-2 NRG Crystals detection in urine sediment by light microsco py NONE NRG Casts detection in urine sediment by light microscopy NONE NRG Mucus detection in urine sediment by light microscopy NEGATIVE NRG Complete urinalysis with reflex to culture YES NRG Renal epithelial cells detection in urin e sediment by light microscopy 2-5 NRG Magnesium - 01/09/19 18:41 Magnesium 2.1 mg/dL 1.6-2.4 Myoglobin, serum - 01/09/19 18:41 Myoglobin, serum 52.0 ng/mL 10.0-92.0 Serum or plasma lithium measurement (mol es/volume) - 01/09/19 18:41 BNP PT 682.7 pg/mL <100.0 Bacterial urine culture - 01/09/19 18:41 Bacterial urine culture 3 OR MORE NRG COLONY COUNT <10,000 NRG FTX;REPORTABLE (GRAM POSITIVE) SUGGESTING PROBABLE NRG FREE TEXT ENTRY 2 COLLECTION CONTAMINATION WITH SK IN NRG FREE TEXT ENTRY 3 PERLA. NO SUSCEPTIBILITY PERFOR MED NRG Capillary blood glucose measurement by g lucometer (mass/volume) - 01/09/19 20:24 Capillary blood glucose measurement by glucometer (mas s/volume) 105 mg/dL 70-110 Methicillin resistant Staphylococcus aur eus (MRSA) screening culture - 01/09/19 21:05 Methicillin resistant Staphylococcus aureus (MRSA) scr eening culture NEG NRG Arterial blood gas measurement - 9 21:17 Blood pCO2 46 mm[Hg] 35-45 Blood pO2 40 mm[Hg] 79-93 Arterial blood bicarbonate measurement (moles/volume) 27 mmol/L 23-27 Arterial blood base excess by calculation 2.4 mmol /L -2.5-2.5 Arterial blood oxygen saturation measurement 64 % 94-100 * Inhaled oxygen flow rate 60% NRG Arterial blood pH measurement with patient temperature correction 7.38 7.37-7.43 Arterial blood carbon dioxide, total measurement (mole s/volume) 28.4 mmol/L 21.0-31.0 Body site LEFT RADIAL NRG Assessment of wrist artery patency prior to arterial p uncture YES-POS NRG Setting of ventilation mode NO NR G Measurement of body temperature 36.8 NRG Serum or plasma troponin i.cardiac measu rement (mass/volume) - 01/09/19 22:55 Serum or plasma troponin i.cardiac measurement (mass/v olume) 0.034 ng/mL <0.028 Arterial blood gas measurement - 9 00:15 Blood pCO2 36 mm[Hg] 35-45 Blood pO2 68 mm[Hg] 79-93 Arterial blood bicarbonate measurement (moles/volume) 19 mmol/L 23-27 Arterial blood base excess by calculation -6.0 mmo l/L -2.5-2.5 Arterial blood oxygen saturation measurement 90 % 94-100 * Inhaled oxygen flow rate 40% NRG Arterial blood pH measurement with patient temperature correction 7.35 7.37-7.43 Arterial blood carbon dioxide, total measurement (mole s/volume) 19.8 mmol/L 21.0-31.0 Body site LEFT RADIAL NRG Assessment of wrist artery patency prior to arterial p uncture ART LINE NRG Setting of ventilation mode YES NR G Measurement of body temperature 36.8 NRG Capillary blood glucose measurement by g lucometer (mass/volume) - 01/10/19 01:16 Capillary blood glucose measurement by glucometer (mas s/volume) 203 mg/dL 70-110 Complete blood count (CBC) with automate d white blood cell (WBC) differential - 01/10/19 03:00 Blood leukocytes automated count (number/volume) 8.9 10*3/uL 4.3-11.0 Blood erythrocytes automated count (number/volume) 3.41 10*6/uL 4.35-5.85 Venous blood hemoglobin measurement (mass/volume) 9.0 g/dL 11.5-16.0 Blood hematocrit (volume fraction) 30 % 35-52 Automated erythrocyte mean corpuscular volume 88 [ foz_us] 80-99 Automated erythrocyte mean corpuscular h emoglobin (mass per erythrocyte) 26 pg 25-34 Automated erythrocyte mean corpuscular h emoglobin concentration measurement (mass/volume) 30 g/dL 32-36 Automated erythrocyte distribution width ratio 14. 6 % 10.0- 14.5 Automated blood platelet count (count/volume) 116 10*3/uL 130-400 Automated blood platelet mean volume measurement 11.3 [foz_us] 7.4-10.4 Automated blood neutrophils/100 leukocytes 87 % 42-75 Automated blood lymphocytes/100 leukocytes 8 % 12-44 Blood monocytes/100 leukocytes 4 % 0-12 Automated blood eosinophils/100 leukocytes 1 % 0-10 Automated blood basophils/100 leukocytes 0 % 0-10 Blood neutrophils automated count (number/volume) 7.7 10*3 1.8-7.8 Blood lymphocytes automated count (number/volume) 0.7 10*3 1.0-4.0 Blood monocytes automated count (number/volume) 0. 4 10*3 0.0-1.0 Automated eosinophil count 0.1 10*3/uL 0 .0-0.3 Automated blood basophil count (count/volume) 0.0 10*3/uL 0.0-0.1 Comprehensive metabolic panel - 01/10/19 03:00 Serum or plasma sodium measurement (moles/volume) 138 mmol/L 135-145 Serum or plasma potassium measurement (moles/volume) 4.0 mmol/L 3.6-5.0 Serum or plasma chloride measurement (moles/volume) 103 mmol/L 98-107 Carbon dioxide 20 mmol/L 21-32 Serum or plasma anion gap determination (moles/volume) 15 mmol/L 5-14 Serum or plasma urea nitrogen measurement (mass/volume ) 29 mg/dL 7-18 Serum or plasma creatinine measurement (mass/volume) 1.59 mg/dL 0.60-1.30 Serum or plasma urea nitrogen/creatinine mass ratio 18 NRG Serum or plasma creatinine measurement w ith calculation of estimated glomerular filtration rate 33 NRG Serum or plasma glucose measurement (mass/volume) 234 mg/dL 70-105 Serum or plasma calcium measurement (mass/volume) 9.3 mg/dL 8.5-10.1 Serum or plasma total bilirubin measurement (mass/volu me) 0.8 mg/dL 0.1-1.0 Serum or plasma alkaline phosphatase shereen surement (enzymatic activity/volume) 74 U/L 40-136 Serum or plasma aspartate aminotransfera se measurement (enzymatic activity/volume) 36 U/L 5-34 Serum or plasma alanine aminotransferase measurement (enzymatic activity/volume) 36 U/L 0-55 Serum or plasma protein measurement (mass/volume) 7.5 g/dL 6.4-8.2 Serum or plasma albumin measurement (mass/volume) 3.4 g/dL 3.2-4.5 CALCIUM CORRECTED 9.8 mg/dL 8.5-10.1 Serum or plasma phosphate measurement (m ass/volume) - 01/10/19 03:00 Serum or plasma phosphate measurement (mass/volume) 1.8 mg/dL 2.3-4.7 Magnesium - 01/10/19 03:00 Magnesium 1.9 mg/dL 1.6-2.4 Arterial blood gas measurement - 9 04:18 Blood pCO2 38 mm[Hg] 35-45 Blood pO2 93 mm[Hg] 79-93 Arterial blood bicarbonate measurement (moles/volume) 24 mmol/L 23-27 Arterial blood base excess by calculation 0.2 mmol /L -2.5-2.5 Arterial blood oxygen saturation measurement 99 % 94-100 * Inhaled oxygen flow rate 45% NRG Arterial blood pH measurement with patient temperature correction 7.42 7.37-7.43 Arterial blood carbon dioxide, total measurement (mole s/volume) 25.4 mmol/L 21.0-31.0 Body site RIGHT RADIAL NRG Assessment of wrist artery patency prior to arterial p uncture YES-POS NRG Setting of ventilation mode NO NR G Measurement of body temperature 36.7 NRG Capillary blood glucose measurement by g lucometer (mass/volume) - 01/10/19 07:50 Capillary blood glucose measurement by glucometer (mas s/volume) 233 mg/dL 70-110 Capillary blood glucose measurement by g lucometer (mass/volume) - 01/10/19 11:11 Capillary blood glucose measurement by glucometer (mas s/volume) 238 mg/dL 70-110 Capillary blood glucose measurement by g lucometer (mass/volume) - 01/10/19 16:36 Capillary blood glucose measurement by glucometer (mas s/volume) 275 mg/dL 70-110 Capillary blood glucose measurement by g lucometer (mass/volume) - 01/10/19 20:06 Capillary blood glucose measurement by glucometer (mas s/volume) 270 mg/dL 70-110 Capillary blood glucose measurement by g lucometer (mass/volume) - 01/11/19 00:14 Capillary blood glucose measurement by glucometer (mas s/volume) 265 mg/dL 70-110 Complete blood count (CBC) with automate d white blood cell (WBC) differential - 01/11/19 02:55 Blood leukocytes automated count (number/volume) 6.6 10*3/uL 4.3-11.0 Blood erythrocytes automated count (number/volume) 3.18 10*6/uL 4.35-5.85 Venous blood hemoglobin measurement (mass/volume) 8.5 g/dL 11.5-16.0 Blood hematocrit (volume fraction) 28 % 35-52 Automated erythrocyte mean corpuscular volume 87 [ foz_us] 80-99 Automated erythrocyte mean corpuscular h emoglobin (mass per erythrocyte) 27 pg 25-34 Automated erythrocyte mean corpuscular h emoglobin concentration measurement (mass/volume) 31 g/dL 32-36 Automated erythrocyte distribution width ratio 14. 1 % 10.0- 14.5 Automated blood platelet count (count/volume) 127 10*3/uL 130-400 Automated blood platelet mean volume measurement 11.6 [foz_us] 7.4-10.4 Automated blood neutrophils/100 leukocytes 79 % 42-75 Automated blood lymphocytes/100 leukocytes 13 % 12-44 Blood monocytes/100 leukocytes 6 % 0-12 Automated blood eosinophils/100 leukocytes 2 % 0-10 Automated blood basophils/100 leukocytes 0 % 0-10 Blood neutrophils automated count (number/volume) 5.2 10*3 1.8-7.8 Blood lymphocytes automated count (number/volume) 0.9 10*3 1.0-4.0 Blood monocytes automated count (number/volume) 0. 4 10*3 0.0-1.0 Automated eosinophil count 0.1 10*3/uL 0 .0-0.3 Automated blood basophil count (count/volume) 0.0 10*3/uL 0.0-0.1 Whole blood basic metabolic panel - 12/21 06/07 02:55 Serum or plasma sodium measurement (moles/volume) 138 mmol/L 135-145 Serum or plasma potassium measurement (moles/volume) 4.2 mmol/L 3.6-5.0 Serum or plasma chloride measurement (moles/volume) 104 mmol/L 98-107 Carbon dioxide 22 mmol/L 21-32 Serum or plasma anion gap determination (moles/volume) 12 mmol/L 5-14 Serum or plasma urea nitrogen measurement (mass/volume ) 24 mg/dL 7-18 Serum or plasma creatinine measurement (mass/volume) 1.36 mg/dL 0.60-1.30 Serum or plasma urea nitrogen/creatinine mass ratio 18 NRG Serum or plasma creatinine measurement w ith calculation of estimated glomerular filtration rate 40 NRG Serum or plasma glucose measurement (mass/volume) 221 mg/dL 70-105 Serum or plasma calcium measurement (mass/volume) 9.0 mg/dL 8.5-10.1 Serum or plasma phosphate measurement (m ass/volume) - 01/11/19 02:55 Serum or plasma phosphate measurement (mass/volume) 2.2 mg/dL 2.3-4.7 Magnesium - 01/11/19 02:55 Magnesium 2.0 mg/dL 1.6-2.4 Capillary blood glucose measurement by g lucometer (mass/volume) - 01/11/19 11:34 Capillary blood glucose measurement by glucometer (mas s/volume) 309 mg/dL 70-110 Capillary blood glucose measurement by g lucometer (mass/volume) - 01/11/19 20:14 Capillary blood glucose measurement by glucometer (mas s/volume) 350 mg/dL 70-110 Capillary blood glucose measurement by g lucometer (mass/volume) - 01/12/19 05:57 Capillary blood glucose measurement by glucometer (mas s/volume) 447 mg/dL 70-110 Complete blood count (CBC) with automate d white blood cell (WBC) differential - 01/12/19 06:08 Blood leukocytes automated count (number/volume) 4.9 10*3/uL 4.3-11.0 Blood erythrocytes automated count (number/volume) 3.35 10*6/uL 4.35-5.85 Venous blood hemoglobin measurement (mass/volume) 8.8 g/dL 11.5-16.0 Blood hematocrit (volume fraction) 29 % 35-52 Automated erythrocyte mean corpuscular volume 86 [ foz_us] 80-99 Automated erythrocyte mean corpuscular h emoglobin (mass per erythrocyte) 26 pg 25-34 Automated erythrocyte mean corpuscular h emoglobin concentration measurement (mass/volume) 30 g/dL 32-36 Automated erythrocyte distribution width ratio 14. 3 % 10.0- 14.5 Automated blood platelet count (count/volume) 151 10*3/uL 130-400 Automated blood platelet mean volume measurement 11.1 [foz_us] 7.4-10.4 Automated blood neutrophils/100 leukocytes 91 % 42-75 Automated blood lymphocytes/100 leukocytes 7 % 12-44 Blood monocytes/100 leukocytes 1 % 0-12 Automated blood eosinophils/100 leukocytes 0 % 0-10 Automated blood basophils/100 leukocytes 0 % 0-10 Blood neutrophils automated count (number/volume) 4.5 10*3 1.8-7.8 Blood lymphocytes automated count (number/volume) 0.3 10*3 1.0-4.0 Blood monocytes automated count (number/volume) 0. 1 10*3 0.0-1.0 Automated eosinophil count 0.0 10*3/uL 0 .0-0.3 Automated blood basophil count (count/volume) 0.0 10*3/uL 0.0-0.1 Whole blood basic metabolic panel - 12/21 07/08 06:08 Serum or plasma sodium measurement (moles/volume) 137 mmol/L 135-145 Serum or plasma potassium measurement (moles/volume) 4.4 mmol/L 3.6-5.0 Serum or plasma chloride measurement (moles/volume) 99 mmol/L 98-107 Carbon dioxide 23 mmol/L 21-32 Serum or plasma anion gap determination (moles/volume) 15 mmol/L 5-14 Serum or plasma urea nitrogen measurement (mass/volume ) 29 mg/dL 7-18 Serum or plasma creatinine measurement (mass/volume) 1.62 mg/dL 0.60-1.30 Serum or plasma urea nitrogen/creatinine mass ratio 18 NRG Serum or plasma creatinine measurement w ith calculation of estimated glomerular filtration rate 32 NRG Serum or plasma glucose measurement (mass/volume) 500 mg/dL 70-105 Serum or plasma calcium measurement (mass/volume) 9.9 mg/dL 8.5-10.1 Serum or plasma phosphate measurement (m ass/volume) - 01/12/19 06:08 Serum or plasma phosphate measurement (mass/volume) 3.2 mg/dL 2.3-4.7 Magnesium - 01/12/19 06:08 Magnesium 2.2 mg/dL 1.6-2.4 Manual absolute plasma cell count - 12/21 07/08 06:08 Blood monocytes/100 leukocytes 2 % NRG Manual blood segmented neutrophils/100 leukocytes 95 % NRG Manual blood lymphocytes/100 leukocytes 3 % NRG Blood polychromasia detection by light microscopy SLIGHT NRG Blood hypochromia detection by light microscopy SL IGHT NRG Capillary blood glucose measurement by g lucometer (mass/volume) - 01/12/19 07:30 Capillary blood glucose measurement by glucometer (mas s/volume) 438 mg/dL 70-110 Capillary blood glucose measurement by g lucometer (mass/volume) - 01/12/19 08:52 Capillary blood glucose measurement by glucometer (mas s/volume) 427 mg/dL 70-110 Capillary blood glucose measurement by g lucometer (mass/volume) - 01/12/19 10:14 Capillary blood glucose measurement by glucometer (mas s/volume) 406 mg/dL 70-110 Capillary blood glucose measurement by g lucometer (mass/volume) - 01/12/19 14:58 Capillary blood glucose measurement by glucometer (mas s/volume) 557 mg/dL 70-110 Capillary blood glucose measurement by g lucometer (mass/volume) - 01/12/19 16:33 Capillary blood glucose measurement by glucometer (mas s/volume) 498 mg/dL 70-110 Capillary blood glucose measurement by g lucometer (mass/volume) - 01/12/19 20:10 Capillary blood glucose measurement by glucometer (mas s/volume) 298 mg/dL 70-110 Complete blood count (CBC) with automate d white blood cell (WBC) differential - 01/13/19 04:30 Blood leukocytes automated count (number/volume) 12.1 10*3/uL 4.3-11.0 Blood erythrocytes automated count (number/volume) 3.36 10*6/uL 4.35-5.85 Venous blood hemoglobin measurement (mass/volume) 8.9 g/dL 11.5-16.0 Blood hematocrit (volume fraction) 29 % 35-52 Automated erythrocyte mean corpuscular volume 86 [ foz_us] 80-99 Automated erythrocyte mean corpuscular h emoglobin (mass per erythrocyte) 27 pg 25-34 Automated erythrocyte mean corpuscular h emoglobin concentration measurement (mass/volume) 31 g/dL 32-36 Automated erythrocyte distribution width ratio 14. 2 % 10.0- 14.5 Automated blood platelet count (count/volume) 213 10*3/uL 130-400 Automated blood platelet mean volume measurement 11.4 [foz_us] 7.4-10.4 Automated blood neutrophils/100 leukocytes 88 % 42-75 Automated blood lymphocytes/100 leukocytes 7 % 12-44 Blood monocytes/100 leukocytes 5 % 0-12 Automated blood eosinophils/100 leukocytes 0 % 0-10 Automated blood basophils/100 leukocytes 0 % 0-10 Blood neutrophils automated count (number/volume) 10.6 10*3 1.8-7.8 Blood lymphocytes automated count (number/volume) 0.8 10*3 1.0-4.0 Blood monocytes automated count (number/volume) 0. 6 10*3 0.0-1.0 Automated eosinophil count 0.0 10*3/uL 0 .0-0.3 Automated blood basophil count (count/volume) 0.0 10*3/uL 0.0-0.1 Whole blood basic metabolic panel - 12/21 08/07 04:30 Serum or plasma sodium measurement (moles/volume) 138 mmol/L 135-145 Serum or plasma potassium measurement (moles/volume) 4.3 mmol/L 3.6-5.0 Serum or plasma chloride measurement (moles/volume) 101 mmol/L 98-107 Carbon dioxide 24 mmol/L 21-32 Serum or plasma anion gap determination (moles/volume) 13 mmol/L 5-14 Serum or plasma urea nitrogen measurement (mass/volume ) 58 mg/dL 7-18 Serum or plasma creatinine measurement (mass/volume) 2.75 mg/dL 0.60-1.30 Serum or plasma urea nitrogen/creatinine mass ratio 21 NRG Serum or plasma creatinine measurement w ith calculation of estimated glomerular filtration rate 18 NRG Serum or plasma glucose measurement (mass/volume) 103 mg/dL 70-105 Serum or plasma calcium measurement (mass/volume) 9.4 mg/dL 8.5-10.1 Serum or plasma phosphate measurement (m ass/volume) - 01/13/19 04:30 Serum or plasma phosphate measurement (mass/volume) 3.1 mg/dL 2.3-4.7 Magnesium - 01/13/19 04:30 Magnesium 2.3 mg/dL 1.6-2.4 Capillary blood glucose measurement by g lucometer (mass/volume) - 01/13/19 10:29 Capillary blood glucose measurement by glucometer (mas s/volume) 264 mg/dL 70-110 Capillary blood glucose measurement by g lucometer (mass/volume) - 01/13/19 17:28 Capillary blood glucose measurement by glucometer (mas s/volume) 182 mg/dL 70-110 Capillary blood glucose measurement by g lucometer (mass/volume) - 01/13/19 21:09 Capillary blood glucose measurement by glucometer (mas s/volume) 296 mg/dL 70-110 Capillary blood glucose measurement by g lucometer (mass/volume) - 01/14/19 05:05 Capillary blood glucose measurement by glucometer (mas s/volume) 100 mg/dL 70-110 Complete blood count (CBC) with automate d white blood cell (WBC) differential - 01/14/19 08:46 Blood leukocytes automated count (number/volume) 14.3 10*3/uL 4.3-11.0 Blood erythrocytes automated count (number/volume) 3.68 10*6/uL 4.35-5.85 Venous blood hemoglobin measurement (mass/volume) 9.7 g/dL 11.5-16.0 Blood hematocrit (volume fraction) 32 % 35-52 Automated erythrocyte mean corpuscular volume 86 [ foz_us] 80-99 Automated erythrocyte mean corpuscular h emoglobin (mass per erythrocyte) 26 pg 25-34 Automated erythrocyte mean corpuscular h emoglobin concentration measurement (mass/volume) 31 g/dL 32-36 Automated erythrocyte distribution width ratio 14. 7 % 10.0- 14.5 Automated blood platelet count (count/volume) 349 10*3/uL 130-400 Automated blood platelet mean volume measurement 10.6 [foz_us] 7.4-10.4 Automated blood neutrophils/100 leukocytes 80 % 42-75 Automated blood lymphocytes/100 leukocytes 14 % 12-44 Blood monocytes/100 leukocytes 6 % 0-12 Automated blood eosinophils/100 leukocytes 0 % 0-10 Automated blood basophils/100 leukocytes 0 % 0-10 Blood neutrophils automated count (number/volume) 11.5 10*3 1.8-7.8 Blood lymphocytes automated count (number/volume) 1.9 10*3 1.0-4.0 Blood monocytes automated count (number/volume) 0. 8 10*3 0.0-1.0 Automated eosinophil count 0.0 10*3/uL 0 .0-0.3 Automated blood basophil count (count/volume) 0.0 10*3/uL 0.0-0.1 Comprehensive metabolic panel - 01/14/19 08:46 Serum or plasma sodium measurement (moles/volume) 135 mmol/L 135-145 Serum or plasma potassium measurement (moles/volume) 4.9 mmol/L 3.6-5.0 Serum or plasma chloride measurement (moles/volume) 100 mmol/L 98-107 Carbon dioxide 19 mmol/L 21-32 Serum or plasma anion gap determination (moles/volume) 16 mmol/L 5-14 Serum or plasma urea nitrogen measurement (mass/volume ) 70 mg/dL 7-18 Serum or plasma creatinine measurement (mass/volume) 2.08 mg/dL 0.60-1.30 Serum or plasma urea nitrogen/creatinine mass ratio 34 NRG Serum or plasma creatinine measurement w ith calculation of estimated glomerular filtration rate 24 NRG Serum or plasma glucose measurement (mass/volume) 289 mg/dL 70-105 Serum or plasma calcium measurement (mass/volume) 9.4 mg/dL 8.5-10.1 Serum or plasma total bilirubin measurement (mass/volu me) 0.3 mg/dL 0.1-1.0 Serum or plasma alkaline phosphatase shereen surement (enzymatic activity/volume) 91 U/L 40-136 Serum or plasma aspartate aminotransfera se measurement (enzymatic activity/volume) 51 U/L 5-34 Serum or plasma alanine aminotransferase measurement (enzymatic activity/volume) 37 U/L 0-55 Serum or plasma protein measurement (mass/volume) 7.7 g/dL 6.4-8.2 Serum or plasma albumin measurement (mass/volume) 3.5 g/dL 3.2-4.5 CALCIUM CORRECTED 9.8 mg/dL 8.5-10.1 Manual absolute plasma cell count - 12/21 09/07 08:46 Blood monocytes/100 leukocytes 6 % NRG Manual blood segmented neutrophils/100 leukocytes 81 % NRG Blood band neutrophils/100 leukocytes 2 % NRG Manual blood lymphocytes/100 leukocytes 11 % NRG Blood erythrocyte morphology finding identification NORMAL NRG Blood toxic granules detection by light microscopy 1+ NRG Capillary blood glucose measurement by g lucometer (mass/volume) - 01/14/19 09:52 Capillary blood glucose measurement by glucometer (mas s/volume) 257 mg/dL 70-110 Capillary blood glucose measurement by g lucometer (mass/volume) - 01/14/19 14:41 Capillary blood glucose measurement by glucometer (mas s/volume) 97 mg/dL 70-110 Capillary blood glucose measurement by g lucometer (mass/volume) - 01/14/19 20:29 Capillary blood glucose measurement by glucometer (mas s/volume) 386 mg/dL 70-110 Capillary blood glucose measurement by g lucometer (mass/volume) - 01/15/19 05:07 Capillary blood glucose measurement by glucometer (mas s/volume) 94 mg/dL 70-110 Capillary blood glucose measurement by g lucometer (mass/volume) - 01/15/19 11:03 Capillary blood glucose measurement by glucometer (mas s/volume) 266 mg/dL 70-110 Capillary blood glucose measurement by g lucometer (mass/volume) - 01/15/19 15:00 Capillary blood glucose measurement by glucometer (mas s/volume) 148 mg/dL 70-110 Capillary blood glucose measurement by g lucometer (mass/volume) - 01/15/19 19:37 Capillary blood glucose measurement by glucometer (mas s/volume) 251 mg/dL 70-110 Complete blood count (CBC) with automate d white blood cell (WBC) differential - 01/16/19 04:50 Blood leukocytes automated count (number/volume) 11.2 10*3/uL 4.3-11.0 Blood erythrocytes automated count (number/volume) 3.68 10*6/uL 4.35-5.85 Venous blood hemoglobin measurement (mass/volume) 9.8 g/dL 11.5-16.0 Blood hematocrit (volume fraction) 32 % 35-52 Automated erythrocyte mean corpuscular volume 86 [ foz_us] 80-99 Automated erythrocyte mean corpuscular h emoglobin (mass per erythrocyte) 27 pg 25-34 Automated erythrocyte mean corpuscular h emoglobin concentration measurement (mass/volume) 31 g/dL 32-36 Automated erythrocyte distribution width ratio 14. 8 % 10.0- 14.5 Automated blood platelet count (count/volume) 288 10*3/uL 130-400 Automated blood platelet mean volume measurement 10.4 [foz_us] 7.4-10.4 Automated blood neutrophils/100 leukocytes 83 % 42-75 Automated blood lymphocytes/100 leukocytes 11 % 12-44 Blood monocytes/100 leukocytes 6 % 0-12 Automated blood eosinophils/100 leukocytes 0 % 0-10 Automated blood basophils/100 leukocytes 0 % 0-10 Blood neutrophils automated count (number/volume) 9.3 10*3 1.8-7.8 Blood lymphocytes automated count (number/volume) 1.2 10*3 1.0-4.0 Blood monocytes automated count (number/volume) 0. 7 10*3 0.0-1.0 Automated eosinophil count 0.0 10*3/uL 0 .0-0.3 Automated blood basophil count (count/volume) 0.0 10*3/uL 0.0-0.1 Comprehensive metabolic panel - 01/16/19 04:50 Serum or plasma sodium measurement (moles/volume) 139 mmol/L 135-145 Serum or plasma potassium measurement (moles/volume) 5.4 mmol/L 3.6-5.0 Serum or plasma chloride measurement (moles/volume) 105 mmol/L 98-107 Carbon dioxide 24 mmol/L 21-32 Serum or plasma anion gap determination (moles/volume) 10 mmol/L 5-14 Serum or plasma urea nitrogen measurement (mass/volume ) 55 mg/dL 7-18 Serum or plasma creatinine measurement (mass/volume) 1.73 mg/dL 0.60-1.30 Serum or plasma urea nitrogen/creatinine mass ratio 32 NRG Serum or plasma creatinine measurement w ith calculation of estimated glomerular filtration rate 30 NRG Serum or plasma glucose measurement (mass/volume) 128 mg/dL 70-105 Serum or plasma calcium measurement (mass/volume) 9.3 mg/dL 8.5-10.1 Serum or plasma total bilirubin measurement (mass/volu me) 0.3 mg/dL 0.1-1.0 Serum or plasma alkaline phosphatase shereen surement (enzymatic activity/volume) 87 U/L 40-136 Serum or plasma aspartate aminotransfera se measurement (enzymatic activity/volume) 59 U/L 5-34 Serum or plasma alanine aminotransferase measurement (enzymatic activity/volume) 50 U/L 0-55 Serum or plasma protein measurement (mass/volume) 7.2 g/dL 6.4-8.2 Serum or plasma albumin measurement (mass/volume) 3.5 g/dL 3.2-4.5 CALCIUM CORRECTED 9.7 mg/dL 8.5-10.1 Capillary blood glucose measurement by g lucometer (mass/volume) - 01/16/19 04:52 Capillary blood glucose measurement by glucometer (mas s/volume) 124 mg/dL 70-110 Capillary blood glucose measurement by g lucometer (mass/volume) - 01/16/19 11:22 Capillary blood glucose measurement by glucometer (mas s/volume) 388 mg/dL 70-110 Capillary blood glucose measurement by g lucometer (mass/volume) - 01/16/19 15:09 Capillary blood glucose measurement by glucometer (mas s/volume) 154 mg/dL 70-110 Capillary blood glucose measurement by g lucometer (mass/volume) - 01/16/19 20:57 Capillary blood glucose measurement by glucometer (mas s/volume) 241 mg/dL 70-110 Capillary blood glucose measurement by g lucometer (mass/volume) - 01/17/19 05:22 Capillary blood glucose measurement by glucometer (mas s/volume) 61 mg/dL 70-110 Capillary blood glucose measurement by g lucometer (mass/volume) - 01/17/19 09:48 Capillary blood glucose measurement by glucometer (mas s/volume) 213 mg/dL 70-110 Capillary blood glucose measurement by g lucometer (mass/volume) - 01/17/19 14:16 Capillary blood glucose measurement by glucometer (mas s/volume) 210 mg/dL 70-110 Capillary blood glucose measurement by g lucometer (mass/volume) - 01/17/19 20:45 Capillary blood glucose measurement by glucometer (mas s/volume) 216 mg/dL 70-110 Complete blood count (CBC) with automate d white blood cell (WBC) differential - 01/18/19 04:30 Blood leukocytes automated count (number/volume) 11.7 10*3/uL 4.3-11.0 Blood erythrocytes automated count (number/volume) 3.55 10*6/uL 4.35-5.85 Venous blood hemoglobin measurement (mass/volume) 9.2 g/dL 11.5-16.0 Blood hematocrit (volume fraction) 31 % 35-52 Automated erythrocyte mean corpuscular volume 87 [ foz_us] 80-99 Automated erythrocyte mean corpuscular h emoglobin (mass per erythrocyte) 26 pg 25-34 Automated erythrocyte mean corpuscular h emoglobin concentration measurement (mass/volume) 30 g/dL 32-36 Automated erythrocyte distribution width ratio 14. 9 % 10.0- 14.5 Automated blood platelet count (count/volume) 306 10*3/uL 130-400 Automated blood platelet mean volume measurement 10.2 [foz_us] 7.4-10.4 Automated blood neutrophils/100 leukocytes 75 % 42-75 Automated blood lymphocytes/100 leukocytes 18 % 12-44 Blood monocytes/100 leukocytes 7 % 0-12 Automated blood eosinophils/100 leukocytes 1 % 0-10 Automated blood basophils/100 leukocytes 0 % 0-10 Blood neutrophils automated count (number/volume) 8.7 10*3 1.8-7.8 Blood lymphocytes automated count (number/volume) 2.1 10*3 1.0-4.0 Blood monocytes automated count (number/volume) 0. 8 10*3 0.0-1.0 Automated eosinophil count 0.1 10*3/uL 0 .0-0.3 Automated blood basophil count (count/volume) 0.0 10*3/uL 0.0-0.1 Comprehensive metabolic panel - 01/18/19 04:30 Serum or plasma sodium measurement (moles/volume) 139 mmol/L 135-145 Serum or plasma potassium measurement (moles/volume) 4.5 mmol/L 3.6-5.0 Serum or plasma chloride measurement (moles/volume) 105 mmol/L 98-107 Carbon dioxide 26 mmol/L 21-32 Serum or plasma anion gap determination (moles/volume) 8 mmol/L 5-14 Serum or plasma urea nitrogen measurement (mass/volume ) 42 mg/dL 7-18 Serum or plasma creatinine measurement (mass/volume) 1.35 mg/dL 0.60-1.30 Serum or plasma urea nitrogen/creatinine mass ratio 31 NRG Serum or plasma creatinine measurement w ith calculation of estimated glomerular filtration rate 40 NRG Serum or plasma glucose measurement (mass/volume) 39 mg/dL 70-105 Serum or plasma calcium measurement (mass/volume) 8.8 mg/dL 8.5-10.1 Serum or plasma total bilirubin measurement (mass/volu me) 0.3 mg/dL 0.1-1.0 Serum or plasma alkaline phosphatase shereen surement (enzymatic activity/volume) 91 U/L 40-136 Serum or plasma aspartate aminotransfera se measurement (enzymatic activity/volume) 50 U/L 5-34 Serum or plasma alanine aminotransferase measurement (enzymatic activity/volume) 49 U/L 0-55 Serum or plasma protein measurement (mass/volume) 6.4 g/dL 6.4-8.2 Serum or plasma albumin measurement (mass/volume) 3.3 g/dL 3.2-4.5 CALCIUM CORRECTED 9.4 mg/dL 8.5-10.1 Magnesium - 01/18/19 04:30 Magnesium 2.6 mg/dL 1.6-2.4 Capillary blood glucose measurement by g lucometer (mass/volume) - 01/18/19 04:48 Capillary blood glucose measurement by glucometer (mas s/volume) 44 mg/dL 70-110 Capillary blood glucose measurement by g lucometer (mass/volume) - 01/18/19 05:36 Capillary blood glucose measurement by glucometer (mas s/volume) 85 mg/dL 70-110 Capillary blood glucose measurement by g lucometer (mass/volume) - 01/18/19 09:30 Capillary blood glucose measurement by glucometer (mas s/volume) 113 mg/dL 70-110 Capillary blood glucose measurement by g lucometer (mass/volume) - 01/18/19 14:22 Capillary blood glucose measurement by glucometer (mas s/volume) 237 mg/dL 70-110 Capillary blood glucose measurement by g lucometer (mass/volume) - 01/18/19 20:55 Capillary blood glucose measurement by glucometer (mas s/volume) 232 mg/dL 70-110 Capillary blood glucose measurement by g lucometer (mass/volume) - 01/19/19 05:48 Capillary blood glucose measurement by glucometer (mas s/volume) 67 mg/dL 70-110 Capillary blood glucose measurement by g lucometer (mass/volume) - 01/19/19 06:34 Capillary blood glucose measurement by glucometer (mas s/volume) 101 mg/dL 70-110 Capillary blood glucose measurement by g lucometer (mass/volume) - 01/19/19 11:11 Capillary blood glucose measurement by glucometer (mas s/volume) 177 mg/dL 70-110 Capillary blood glucose measurement by g lucometer (mass/volume) - 01/19/19 16:32 Capillary blood glucose measurement by glucometer (mas s/volume) 115 mg/dL 70-110 Capillary blood glucose measurement by g lucometer (mass/volume) - 01/19/19 20:11 Capillary blood glucose measurement by glucometer (mas s/volume) 199 mg/dL 70-110 Capillary blood glucose measurement by g lucometer (mass/volume) - 01/20/19 05:56 Capillary blood glucose measurement by glucometer (mas s/volume) 50 mg/dL 70-110 Capillary blood glucose measurement by g lucometer (mass/volume) - 01/20/19 06:27 Capillary blood glucose measurement by glucometer (mas s/volume) 75 mg/dL 70-110 Capillary blood glucose measurement by g lucometer (mass/volume) - 01/20/19 10:04 Capillary blood glucose measurement by glucometer (mas s/volume) 219 mg/dL 70-110 Capillary blood glucose measurement by g lucometer (mass/volume) - 01/20/19 14:54 Capillary blood glucose measurement by glucometer (mas s/volume) 90 mg/dL 70-110 Capillary blood glucose measurement by g lucometer (mass/volume) - 01/20/19 19:34 Capillary blood glucose measurement by glucometer (mas s/volume) 310 mg/dL 70-110 Capillary blood glucose measurement by g lucometer (mass/volume) - 01/21/19 05:41 Capillary blood glucose measurement by glucometer (mas s/volume) 56 mg/dL 70-110 Capillary blood glucose measurement by g lucometer (mass/volume) - 01/21/19 06:25 Capillary blood glucose measurement by glucometer (mas s/volume) 108 mg/dL 70-110 Capillary blood glucose measurement by g lucometer (mass/volume) - 01/21/19 08:56 Capillary blood glucose measurement by glucometer (mas s/volume) 247 mg/dL 70-110 Capillary blood glucose measurement by g lucometer (mass/volume) - 01/21/19 14:38 Capillary blood glucose measurement by glucometer (mas s/volume) 114 mg/dL 70-110 Capillary blood glucose measurement by g lucometer (mass/volume) - 01/21/19 19:11 Capillary blood glucose measurement by glucometer (mas s/volume) 270 mg/dL 70-110 Capillary blood glucose measurement by g lucometer (mass/volume) - 01/21/19 23:01 Capillary blood glucose measurement by glucometer (mas s/volume) 29 mg/dL 70-110 Capillary blood glucose measurement by g lucometer (mass/volume) - 01/21/19 23:12 Capillary blood glucose measurement by glucometer (mas s/volume) 42 mg/dL 70-110 Capillary blood glucose measurement by g lucometer (mass/volume) - 01/21/19 23:32 Capillary blood glucose measurement by glucometer (mas s/volume) 69 mg/dL 70-110 Capillary blood glucose measurement by g lucometer (mass/volume) - 01/22/19 00:09 Capillary blood glucose measurement by glucometer (mas s/volume) 76 mg/dL 70-110 Capillary blood glucose measurement by g lucometer (mass/volume) - 01/22/19 01:11 Capillary blood glucose measurement by glucometer (mas s/volume) 92 mg/dL 70-110 Capillary blood glucose measurement by g lucometer (mass/volume) - 01/22/19 01:53 Capillary blood glucose measurement by glucometer (mas s/volume) 93 mg/dL 70-110 Capillary blood glucose measurement by g lucometer (mass/volume) - 01/22/19 05:17 Capillary blood glucose measurement by glucometer (mas s/volume) 139 mg/dL 70-110 Capillary blood glucose measurement by g lucometer (mass/volume) - 01/22/19 06:45 Capillary blood glucose measurement by glucometer (mas s/volume) 142 mg/dL 70-110 Capillary blood glucose measurement by g lucometer (mass/volume) - 01/22/19 09:24 Capillary blood glucose measurement by glucometer (mas s/volume) 255 mg/dL 70-110 Capillary blood glucose measurement by g lucometer (mass/volume) - 01/22/19 13:46 Capillary blood glucose measurement by glucometer (mas s/volume) 398 mg/dL 70-110 Capillary blood glucose measurement by g lucometer (mass/volume) - 01/22/19 14:57 Capillary blood glucose measurement by glucometer (mas s/volume) 356 mg/dL 70-110 Capillary blood glucose measurement by g lucometer (mass/volume) - 01/22/19 16:33 Capillary blood glucose measurement by glucometer (mas s/volume) 314 mg/dL 70-110 Capillary blood glucose measurement by g lucometer (mass/volume) - 01/22/19 20:28 Capillary blood glucose measurement by glucometer (mas s/volume) 377 mg/dL 70-110 Complete blood count (CBC) with automate d white blood cell (WBC) differential - 01/23/19 05:22 Blood leukocytes automated count (number/volume) 8.2 10*3/uL 4.3-11.0 Blood erythrocytes automated count (number/volume) 3.32 10*6/uL 4.35-5.85 Venous blood hemoglobin measurement (mass/volume) 8.9 g/dL 11.5-16.0 Blood hematocrit (volume fraction) 29 % 35-52 Automated erythrocyte mean corpuscular volume 88 [ foz_us] 80-99 Automated erythrocyte mean corpuscular h emoglobin (mass per erythrocyte) 27 pg 25-34 Automated erythrocyte mean corpuscular h emoglobin concentration measurement (mass/volume) 30 g/dL 32-36 Automated erythrocyte distribution width ratio 14. 5 % 10.0- 14.5 Automated blood platelet count (count/volume) 190 10*3/uL 130-400 Automated blood platelet mean volume measurement 10.7 [foz_us] 7.4-10.4 Automated blood neutrophils/100 leukocytes 75 % 42-75 Automated blood lymphocytes/100 leukocytes 19 % 12-44 Blood monocytes/100 leukocytes 5 % 0-12 Automated blood eosinophils/100 leukocytes 1 % 0-10 Automated blood basophils/100 leukocytes 0 % 0-10 Blood neutrophils automated count (number/volume) 6.1 10*3 1.8-7.8 Blood lymphocytes automated count (number/volume) 1.6 10*3 1.0-4.0 Blood monocytes automated count (number/volume) 0. 4 10*3 0.0-1.0 Automated eosinophil count 0.1 10*3/uL 0 .0-0.3 Automated blood basophil count (count/volume) 0.0 10*3/uL 0.0-0.1 Comprehensive metabolic panel - 01/23/19 05:22 Serum or plasma sodium measurement (moles/volume) 137 mmol/L 135-145 Serum or plasma potassium measurement (moles/volume) 4.4 mmol/L 3.6-5.0 Serum or plasma chloride measurement (moles/volume) 101 mmol/L 98-107 Carbon dioxide 25 mmol/L 21-32 Serum or plasma anion gap determination (moles/volume) 11 mmol/L 5-14 Serum or plasma urea nitrogen measurement (mass/volume ) 37 mg/dL 7-18 Serum or plasma creatinine measurement (mass/volume) 1.63 mg/dL 0.60-1.30 Serum or plasma urea nitrogen/creatinine mass ratio 23 NRG Serum or plasma creatinine measurement w ith calculation of estimated glomerular filtration rate 32 NRG Serum or plasma glucose measurement (mass/volume) 231 mg/dL 70-105 Serum or plasma calcium measurement (mass/volume) 8.7 mg/dL 8.5-10.1 Serum or plasma total bilirubin measurement (mass/volu me) 0.3 mg/dL 0.1-1.0 Serum or plasma alkaline phosphatase shereen surement (enzymatic activity/volume) 79 U/L 40-136 Serum or plasma aspartate aminotransfera se measurement (enzymatic activity/volume) 43 U/L 5-34 Serum or plasma alanine aminotransferase measurement (enzymatic activity/volume) 51 U/L 0-55 Serum or plasma protein measurement (mass/volume) 6.1 g/dL 6.4-8.2 Serum or plasma albumin measurement (mass/volume) 3.2 g/dL 3.2-4.5 CALCIUM CORRECTED 9.3 mg/dL 8.5-10.1 Capillary blood glucose measurement by g lucometer (mass/volume) - 01/23/19 11:52 Capillary blood glucose measurement by glucometer (mas s/volume) 210 mg/dL 70-110 Capillary blood glucose measurement by g lucometer (mass/volume) - 01/23/19 15:24 Capillary blood glucose measurement by glucometer (mas s/volume) 206 mg/dL 70-110 Capillary blood glucose measurement by g lucometer (mass/volume) - 01/23/19 20:12 Capillary blood glucose measurement by glucometer (mas s/volume) 364 mg/dL 70-110 Capillary blood glucose measurement by g lucometer (mass/volume) - 01/24/19 05:44 Capillary blood glucose measurement by glucometer (mas s/volume) 205 mg/dL 70-110 Capillary blood glucose measurement by g lucometer (mass/volume) - 01/24/19 10:54 Capillary blood glucose measurement by glucometer (mas s/volume) 254 mg/dL 70-110 Capillary blood glucose measurement by g lucometer (mass/volume) - 01/24/19 15:44 Capillary blood glucose measurement by glucometer (mas s/volume) 212 mg/dL 70-110 Capillary blood glucose measurement by g lucometer (mass/volume) - 01/24/19 20:57 Capillary blood glucose measurement by glucometer (mas s/volume) 147 mg/dL 70-110 Capillary blood glucose measurement by g lucometer (mass/volume) - 01/25/19 05:05 Capillary blood glucose measurement by glucometer (mas s/volume) 145 mg/dL 70-110 Capillary blood glucose measurement by g lucometer (mass/volume) - 01/25/19 11:00 Capillary blood glucose measurement by glucometer (mas s/volume) 115 mg/dL 70-110 Capillary blood glucose measurement by g lucometer (mass/volume) - 01/25/19 15:46 Capillary blood glucose measurement by glucometer (mas s/volume) 81 mg/dL 70-110 Capillary blood glucose measurement by g lucometer (mass/volume) - 01/25/19 16:57 Capillary blood glucose measurement by glucometer (mas s/volume) 132 mg/dL 70-110 Capillary blood glucose measurement by g lucometer (mass/volume) - 01/25/19 20:27 Capillary blood glucose measurement by glucometer (mas s/volume) 140 mg/dL 70-110 Capillary blood glucose measurement by g lucometer (mass/volume) - 01/26/19 05:28 Capillary blood glucose measurement by glucometer (mas s/volume) 94 mg/dL 70-110 Capillary blood glucose measurement by g lucometer (mass/volume) - 01/26/19 11:01 Capillary blood glucose measurement by glucometer (mas s/volume) 162 mg/dL 70-110 Capillary blood glucose measurement by g lucometer (mass/volume) - 01/26/19 15:35 Capillary blood glucose measurement by glucometer (mas s/volume) 171 mg/dL 70-110 Capillary blood glucose measurement by g lucometer (mass/volume) - 01/26/19 20:21 Capillary blood glucose measurement by glucometer (mas s/volume) 161 mg/dL 70-110 Comprehensive metabolic panel - 01/27/19 05:00 Serum or plasma sodium measurement (moles/volume) 136 mmol/L 135-145 Serum or plasma potassium measurement (moles/volume) 4.5 mmol/L 3.6-5.0 Serum or plasma chloride measurement (moles/volume) 102 mmol/L 98-107 Carbon dioxide 25 mmol/L 21-32 Serum or plasma anion gap determination (moles/volume) 9 mmol/L 5-14 Serum or plasma urea nitrogen measurement (mass/volume ) 22 mg/dL 7-18 Serum or plasma creatinine measurement (mass/volume) 1.36 mg/dL 0.60-1.30 Serum or plasma urea nitrogen/creatinine mass ratio 16 NRG Serum or plasma creatinine measurement w ith calculation of estimated glomerular filtration rate 40 NRG Serum or plasma glucose measurement (mass/volume) 152 mg/dL 70-105 Serum or plasma calcium measurement (mass/volume) 8.8 mg/dL 8.5-10.1 Serum or plasma total bilirubin measurement (mass/volu me) 0.4 mg/dL 0.1-1.0 Serum or plasma alkaline phosphatase shereen surement (enzymatic activity/volume) 88 U/L 40-136 Serum or plasma aspartate aminotransfera se measurement (enzymatic activity/volume) 50 U/L 5-34 Serum or plasma alanine aminotransferase measurement (enzymatic activity/volume) 46 U/L 0-55 Serum or plasma protein measurement (mass/volume) 6.2 g/dL 6.4-8.2 Serum or plasma albumin measurement (mass/volume) 3.3 g/dL 3.2-4.5 CALCIUM CORRECTED 9.4 mg/dL 8.5-10.1 Magnesium - 01/27/19 05:00 Magnesium 2.0 mg/dL 1.6-2.4 Serum or plasma lithium measurement (mol es/volume) - 01/27/19 05:00 BNP PT 388.4 pg/mL <100.0 Capillary blood glucose measurement by g lucometer (mass/volume) - 01/27/19 05:53 Capillary blood glucose measurement by glucometer (mas s/volume) 172 mg/dL 70-110 Capillary blood glucose measurement by g lucometer (mass/volume) - 01/27/19 10:51 Capillary blood glucose measurement by glucometer (mas s/volume) 225 mg/dL 70-110 Capillary blood glucose measurement by g lucometer (mass/volume) - 01/27/19 15:39 Capillary blood glucose measurement by glucometer (mas s/volume) 178 mg/dL 70-110 Capillary blood glucose measurement by g lucometer (mass/volume) - 01/27/19 20:13 Capillary blood glucose measurement by glucometer (mas s/volume) 211 mg/dL 70-110 Capillary blood glucose measurement by g lucometer (mass/volume) - 01/28/19 05:05 Capillary blood glucose measurement by glucometer (mas s/volume) 180 mg/dL 70-110 Capillary blood glucose measurement by g lucometer (mass/volume) - 01/28/19 10:36 Capillary blood glucose measurement by glucometer (mas s/volume) 213 mg/dL 70-110 Complete blood count (CBC) with automate d white blood cell (WBC) differential - 02/05/19 08:55 Blood leukocytes automated count (number/volume) 12.0 10*3/uL 4.3-11.0 Blood erythrocytes automated count (number/volume) 3.35 10*6/uL 4.35-5.85 Venous blood hemoglobin measurement (mass/volume) 8.9 g/dL 11.5-16.0 Blood hematocrit (volume fraction) 30 % 35-52 Automated erythrocyte mean corpuscular volume 90 [ foz_us] 80-99 Automated erythrocyte mean corpuscular h emoglobin (mass per erythrocyte) 27 pg 25-34 Automated erythrocyte mean corpuscular h emoglobin concentration measurement (mass/volume) 29 g/dL 32-36 Automated erythrocyte distribution width ratio 15. 4 % 10.0- 14.5 Automated blood platelet count (count/volume) 274 10*3/uL 130-400 Automated blood platelet mean volume measurement 11.4 [foz_us] 7.4-10.4 Automated blood neutrophils/100 leukocytes 48 % 42-75 Automated blood lymphocytes/100 leukocytes 45 % 12-44 Blood monocytes/100 leukocytes 5 % 0-12 Automated blood eosinophils/100 leukocytes 2 % 0-10 Automated blood basophils/100 leukocytes 0 % 0-10 Blood neutrophils automated count (number/volume) 5.7 10*3 1.8-7.8 Blood lymphocytes automated count (number/volume) 5.5 10*3 1.0-4.0 Blood monocytes automated count (number/volume) 0. 6 10*3 0.0-1.0 Automated eosinophil count 0.2 10*3/uL 0 .0-0.3 Automated blood basophil count (count/volume) 0.0 10*3/uL 0.0-0.1 PT panel in platelet poor plasma by coag ulation assay - 02/05/19 08:55 Prothrombin time (PT) in platelet poor plasma by coagu lation assay 27.0 s 12.2-14.7 INR in platelet poor plasma or blood by coagulation as say 2.4 0.8-1.4 Activated partial thromboplastin time (a PTT) in platelet poor plasma bycoagulation assay - 02/05/19 08:55 Activated partial thromboplastin time (a PTT) in platelet poor plasma bycoagulation assay 44 s 24-35 Blood lactic acid measurement (moles/vol ume) - 02/05/19 08:55 Blood lactic acid measurement (moles/volume) 2.32 mmol/L 0.50-2.00 Comprehensive metabolic panel - 02/05/19 08:55 Serum or plasma sodium measurement (moles/volume) 141 mmol/L 135-145 Serum or plasma potassium measurement (moles/volume) 5.3 mmol/L 3.6-5.0 Serum or plasma chloride measurement (moles/volume) 103 mmol/L 98-107 Carbon dioxide 22 mmol/L 21-32 Serum or plasma anion gap determination (moles/volume) 16 mmol/L 5-14 Serum or plasma urea nitrogen measurement (mass/volume ) 57 mg/dL 7-18 Serum or plasma creatinine measurement (mass/volume) 4.07 mg/dL 0.60-1.30 Serum or plasma urea nitrogen/creatinine mass ratio 14 NRG Serum or plasma creatinine measurement w ith calculation of estimated glomerular filtration rate 11 NRG Serum or plasma glucose measurement (mass/volume) 175 mg/dL 70-105 Serum or plasma calcium measurement (mass/volume) 8.9 mg/dL 8.5-10.1 Serum or plasma total bilirubin measurement (mass/volu me) 0.3 mg/dL 0.1-1.0 Serum or plasma alkaline phosphatase shereen surement (enzymatic activity/volume) 92 U/L 40-136 Serum or plasma aspartate aminotransfera se measurement (enzymatic activity/volume) 32 U/L 5-34 Serum or plasma alanine aminotransferase measurement (enzymatic activity/volume) 24 U/L 0-55 Serum or plasma protein measurement (mass/volume) 7.0 g/dL 6.4-8.2 Serum or plasma albumin measurement (mass/volume) 3.7 g/dL 3.2-4.5 CALCIUM CORRECTED 9.1 mg/dL 8.5-10.1 Magnesium - 02/05/19 08:55 Magnesium 2.3 mg/dL 1.6-2.4 TROPONIN I FS - 02/05/19 08:55 TROPONIN I FS < 0.30 <0.30 PROBNP FS - 02/05/19 08:55 PROBNP FS 3065.0 pg/mL <75.0 Serum or plasma salicylates measurement (mass/volume) - 02/05/19 08:55 Serum or plasma salicylates measurement (mass/volume) < mg/dL 5.0-20.0 Serum or plasma acetaminophen measuremen t (mass/volume) - 02/05/19 08:55 Serum or plasma acetaminophen measurement (mass/volume ) < ug/mL 10-30 Serum or plasma ethanol measurement (mas s/volume) - 02/05/19 08:55 Serum or plasma ethanol measurement (mass/volume) < mg/dL <10 Bacterial blood culture - 02/05/19 08:55 Bacterial blood culture NG NRG Arterial blood gas measurement - 9 09:10 Blood pCO2 50 mm[Hg] 35-45 Blood pO2 101 mm[Hg] 79-93 Arterial blood bicarbonate measurement (moles/volume) 22 mmol/L 23-27 Arterial blood base excess by calculation -4.9 mmo l/L -2.5-2.5 Arterial blood oxygen saturation measurement 97 % 94-100 * Inhaled oxygen flow rate 5L NRG Arterial blood pH measurement with patient temperature correction 7.26 7.37-7.43 Arterial blood carbon dioxide, total measurement (mole s/volume) 23.9 mmol/L 21.0-31.0 Body site LEFT RADIAL NRG Assessment of wrist artery patency prior to arterial p uncture PT NOT ABLE NRG Setting of ventilation mode NO NR G Measurement of body temperature 36.3 NRG Capillary blood glucose measurement by g lucometer (mass/volume) - 02/05/19 09:17 Capillary blood glucose measurement by glucometer (mas s/volume) 179 mg/dL 70-110 Capillary blood glucose measurement by g lucometer (mass/volume) - 02/17/19 15:59 Capillary blood glucose measurement by glucometer (mas s/volume) 108 mg/dL 70-110 Capillary blood glucose measurement by g lucometer (mass/volume) - 02/17/19 20:35 Capillary blood glucose measurement by glucometer (mas s/volume) 303 mg/dL 70-110 Capillary blood glucose measurement by g lucometer (mass/volume) - 02/18/19 05:09 Capillary blood glucose measurement by glucometer (mas s/volume) 183 mg/dL 70-110 Complete blood count (CBC) with automate d white blood cell (WBC) differential - 02/18/19 05:29 Blood leukocytes automated count (number/volume) 5.4 10*3/uL 4.3-11.0 Blood erythrocytes automated count (number/volume) 3.33 10*6/uL 4.35-5.85 Venous blood hemoglobin measurement (mass/volume) 8.8 g/dL 11.5-16.0 Blood hematocrit (volume fraction) 29 % 35-52 Automated erythrocyte mean corpuscular volume 88 [ foz_us] 80-99 Automated erythrocyte mean corpuscular h emoglobin (mass per erythrocyte) 26 pg 25-34 Automated erythrocyte mean corpuscular h emoglobin concentration measurement (mass/volume) 30 g/dL 32-36 Automated erythrocyte distribution width ratio 16. 5 % 10.0- 14.5 Automated blood platelet count (count/volume) 170 10*3/uL 130-400 Automated blood platelet mean volume measurement 10.5 [foz_us] 7.4-10.4 Automated blood neutrophils/100 leukocytes 66 % 42-75 Automated blood lymphocytes/100 leukocytes 22 % 12-44 Blood monocytes/100 leukocytes 10 % 0-12 Automated blood eosinophils/100 leukocytes 2 % 0-10 Automated blood basophils/100 leukocytes 0 % 0-10 Blood neutrophils automated count (number/volume) 3.5 10*3 1.8-7.8 Blood lymphocytes automated count (number/volume) 1.2 10*3 1.0-4.0 Blood monocytes automated count (number/volume) 0. 5 10*3 0.0-1.0 Automated eosinophil count 0.1 10*3/uL 0 .0-0.3 Automated blood basophil count (count/volume) 0.0 10*3/uL 0.0-0.1 Comprehensive metabolic panel - 02/18/19 05:29 Serum or plasma sodium measurement (moles/volume) 142 mmol/L 135-145 Serum or plasma potassium measurement (moles/volume) 3.8 mmol/L 3.6-5.0 Serum or plasma chloride measurement (moles/volume) 106 mmol/L 98-107 Carbon dioxide 26 mmol/L 21-32 Serum or plasma anion gap determination (moles/volume) 10 mmol/L 5-14 Serum or plasma urea nitrogen measurement (mass/volume ) 16 mg/dL 7-18 Serum or plasma creatinine measurement (mass/volume) 1.35 mg/dL 0.60-1.30 Serum or plasma urea nitrogen/creatinine mass ratio 12 NRG Serum or plasma creatinine measurement w ith calculation of estimated glomerular filtration rate 40 NRG Serum or plasma glucose measurement (mass/volume) 169 mg/dL 70-105 Serum or plasma calcium measurement (mass/volume) 9.2 mg/dL 8.5-10.1 Serum or plasma total bilirubin measurement (mass/volu me) 0.3 mg/dL 0.1-1.0 Serum or plasma alkaline phosphatase shereen surement (enzymatic activity/volume) 115 U/L 40-136 Serum or plasma aspartate aminotransfera se measurement (enzymatic activity/volume) 51 U/L 5-34 Serum or plasma alanine aminotransferase measurement (enzymatic activity/volume) 42 U/L 0-55 Serum or plasma protein measurement (mass/volume) 7.1 g/dL 6.4-8.2 Serum or plasma albumin measurement (mass/volume) 3.6 g/dL 3.2-4.5 CALCIUM CORRECTED 9.5 mg/dL 8.5-10.1 Magnesium - 02/18/19 05:29 Magnesium 2.1 mg/dL 1.6-2.4 THYROID STIMULATING HORMONE - 02/18/19 0 5:29 THYROID STIMULATING HORMONE 1.24 u[iU]/mL 0.35-4.94 IRON TEST - 02/18/19 05:29 Serum or plasma iron measurement (mass/volume) 53 % 35-180 Capillary blood glucose measurement by g lucometer (mass/volume) - 02/18/19 11:10 Capillary blood glucose measurement by glucometer (mas s/volume) 250 mg/dL 70-110 Capillary blood glucose measurement by g lucometer (mass/volume) - 02/18/19 15:35 Capillary blood glucose measurement by glucometer (mas s/volume) 277 mg/dL 70-110 Capillary blood glucose measurement by g lucometer (mass/volume) - 02/18/19 20:27 Capillary blood glucose measurement by glucometer (mas s/volume) 334 mg/dL 70-110 Capillary blood glucose measurement by g lucometer (mass/volume) - 02/19/19 02:54 Capillary blood glucose measurement by glucometer (mas s/volume) 214 mg/dL 70-110 Capillary blood glucose measurement by g lucometer (mass/volume) - 02/19/19 05:46 Capillary blood glucose measurement by glucometer (mas s/volume) 232 mg/dL 70-110 Capillary blood glucose measurement by g lucometer (mass/volume) - 02/19/19 10:30 Capillary blood glucose measurement by glucometer (mas s/volume) 345 mg/dL 70-110 Capillary blood glucose measurement by g lucometer (mass/volume) - 02/19/19 10:31 Capillary blood glucose measurement by glucometer (mas s/volume) 356 mg/dL 70-110 Capillary blood glucose measurement by g lucometer (mass/volume) - 02/19/19 15:29 Capillary blood glucose measurement by glucometer (mas s/volume) 220 mg/dL 70-110 Capillary blood glucose measurement by g lucometer (mass/volume) - 02/19/19 20:07 Capillary blood glucose measurement by glucometer (mas s/volume) 156 mg/dL 70-110 Capillary blood glucose measurement by g lucometer (mass/volume) - 02/20/19 00:23 Capillary blood glucose measurement by glucometer (mas s/volume) 77 mg/dL 70-110 Capillary blood glucose measurement by g lucometer (mass/volume) - 02/20/19 04:49 Capillary blood glucose measurement by glucometer (mas s/volume) 169 mg/dL 70-110 Complete blood count (CBC) with automate d white blood cell (WBC) differential - 02/20/19 05:43 Blood leukocytes automated count (number/volume) 5.0 10*3/uL 4.3-11.0 Blood erythrocytes automated count (number/volume) 3.30 10*6/uL 4.35-5.85 Venous blood hemoglobin measurement (mass/volume) 8.7 g/dL 11.5-16.0 Blood hematocrit (volume fraction) 29 % 35-52 Automated erythrocyte mean corpuscular volume 87 [ foz_us] 80-99 Automated erythrocyte mean corpuscular h emoglobin (mass per erythrocyte) 26 pg 25-34 Automated erythrocyte mean corpuscular h emoglobin concentration measurement (mass/volume) 30 g/dL 32-36 Automated erythrocyte distribution width ratio 16. 2 % 10.0- 14.5 Automated blood platelet count (count/volume) 126 10*3/uL 130-400 Automated blood platelet mean volume measurement 11.4 [foz_us] 7.4-10.4 Automated blood neutrophils/100 leukocytes 72 % 42-75 Automated blood lymphocytes/100 leukocytes 19 % 12-44 Blood monocytes/100 leukocytes 7 % 0-12 Automated blood eosinophils/100 leukocytes 2 % 0-10 Automated blood basophils/100 leukocytes 0 % 0-10 Blood neutrophils automated count (number/volume) 3.6 10*3 1.8-7.8 Blood lymphocytes automated count (number/volume) 1.0 10*3 1.0-4.0 Blood monocytes automated count (number/volume) 0. 3 10*3 0.0-1.0 Automated eosinophil count 0.1 10*3/uL 0 .0-0.3 Automated blood basophil count (count/volume) 0.0 10*3/uL 0.0-0.1 Comprehensive metabolic panel - 02/20/19 05:43 Serum or plasma sodium measurement (moles/volume) 135 mmol/L 135-145 Serum or plasma potassium measurement (moles/volume) 4.5 mmol/L 3.6-5.0 Serum or plasma chloride measurement (moles/volume) 101 mmol/L 98-107 Carbon dioxide 23 mmol/L 21-32 Serum or plasma anion gap determination (moles/volume) 11 mmol/L 5-14 Serum or plasma urea nitrogen measurement (mass/volume ) 18 mg/dL 7-18 Serum or plasma creatinine measurement (mass/volume) 1.28 mg/dL 0.60-1.30 Serum or plasma urea nitrogen/creatinine mass ratio 14 NRG Serum or plasma creatinine measurement w ith calculation of estimated glomerular filtration rate 42 NRG Serum or plasma glucose measurement (mass/volume) 182 mg/dL 70-105 Serum or plasma calcium measurement (mass/volume) 9.2 mg/dL 8.5-10.1 Serum or plasma total bilirubin measurement (mass/volu me) 0.4 mg/dL 0.1-1.0 Serum or plasma alkaline phosphatase shereen surement (enzymatic activity/volume) 117 U/L 40-136 Serum or plasma aspartate aminotransfera se measurement (enzymatic activity/volume) 53 U/L 5-34 Serum or plasma alanine aminotransferase measurement (enzymatic activity/volume) 45 U/L 0-55 Serum or plasma protein measurement (mass/volume) 7.0 g/dL 6.4-8.2 Serum or plasma albumin measurement (mass/volume) 3.6 g/dL 3.2-4.5 CALCIUM CORRECTED 9.5 mg/dL 8.5-10.1 Capillary blood glucose measurement by g lucometer (mass/volume) - 02/20/19 10:52 Capillary blood glucose measurement by glucometer (mas s/volume) 187 mg/dL 70-110 Capillary blood glucose measurement by g lucometer (mass/volume) - 02/20/19 15:34 Capillary blood glucose measurement by glucometer (mas s/volume) 226 mg/dL 70-110 Capillary blood glucose measurement by g lucometer (mass/volume) - 02/20/19 20:22 Capillary blood glucose measurement by glucometer (mas s/volume) 245 mg/dL 70-110 Capillary blood glucose measurement by g lucometer (mass/volume) - 02/21/19 05:36 Capillary blood glucose measurement by glucometer (mas s/volume) 183 mg/dL 70-110 Capillary blood glucose measurement by g lucometer (mass/volume) - 02/21/19 10:38 Capillary blood glucose measurement by glucometer (mas s/volume) 206 mg/dL 70-110 Capillary blood glucose measurement by g lucometer (mass/volume) - 02/21/19 15:39 Capillary blood glucose measurement by glucometer (mas s/volume) 220 mg/dL 70-110 Capillary blood glucose measurement by g lucometer (mass/volume) - 02/21/19 20:34 Capillary blood glucose measurement by glucometer (mas s/volume) 177 mg/dL 70-110 Capillary blood glucose measurement by g lucometer (mass/volume) - 02/22/19 06:05 Capillary blood glucose measurement by glucometer (mas s/volume) 246 mg/dL 70-110 Capillary blood glucose measurement by g lucometer (mass/volume) - 02/22/19 10:33 Capillary blood glucose measurement by glucometer (mas s/volume) 120 mg/dL 70-110 Capillary blood glucose measurement by g lucometer (mass/volume) - 02/22/19 15:37 Capillary blood glucose measurement by glucometer (mas s/volume) 249 mg/dL 70-110 Capillary blood glucose measurement by g lucometer (mass/volume) - 02/22/19 20:22 Capillary blood glucose measurement by glucometer (mas s/volume) 239 mg/dL 70-110 Capillary blood glucose measurement by g lucometer (mass/volume) - 02/23/19 05:15 Capillary blood glucose measurement by glucometer (mas s/volume) 200 mg/dL 70-110 Capillary blood glucose measurement by g lucometer (mass/volume) - 02/23/19 11:01 Capillary blood glucose measurement by glucometer (mas s/volume) 152 mg/dL 70-110 Capillary blood glucose measurement by g lucometer (mass/volume) - 02/23/19 15:27 Capillary blood glucose measurement by glucometer (mas s/volume) 287 mg/dL 70-110 Capillary blood glucose measurement by g lucometer (mass/volume) - 02/23/19 20:29 Capillary blood glucose measurement by glucometer (mas s/volume) 223 mg/dL 70-110 Capillary blood glucose measurement by g lucometer (mass/volume) - 02/24/19 05:15 Capillary blood glucose measurement by glucometer (mas s/volume) 233 mg/dL 70-110 Capillary blood glucose measurement by g lucometer (mass/volume) - 02/24/19 10:54 Capillary blood glucose measurement by glucometer (mas s/volume) 192 mg/dL 70-110 [id number] - 03/09/19 12:50 Serum or plasma urea nitrogen measurement (mass/volume ) 20 mg/dL 7-18 Serum or plasma creatinine measurement (mass/volume) 1.26 mg/dL 0.60-1.30 Serum or plasma urea nitrogen/creatinine mass ratio 16 NRG Serum or plasma creatinine measurement w ith calculation of estimated glomerular filtration rate 43 NRG Encounters ACCT No. Visit Date/Time Discharge Status Pt. Type Provider Facility Loc./Unit Complaint [id number] 10/19/2018 16:15:00 10/19/2018 23:59: 59 CLS Outpatient GEE AMADO MD [facility] [id number] 08/29/2018 15:45:00 Document Registration [id number] 08/18/2018 09:00:00 Document Registration [id number] 01/17/2018 13:40:00 Document Registration [id number] 06/01/2014 14:09:00 06/01/2014 23:59: 59 CLS Outpatient GEE AMADO MD [id number] 04/30/2014 13:56:00 04/30/2014 23:59: 59 CLS Outpatient GEE AMADO MD [id number] 03/29/2014 12:12:00 03/29/2014 23:59: 59 CLS Outpatient GEE AMADO MD [id number] 03/23/2014 13:24:00 03/23/2014 23:59: 59 CLS Outpatient GEE AMADO MD [id number] 03/06/2014 13:45:00 03/06/2014 23:59: 59 CLS Outpatient THEODORE TERRAZAS APRNNYEvin Gonzalez [id number] 02/20/2014 14:47:00 02/20/2014 23:59: 59 CLS Outpatient GEE AMADO MD [id number] 02/06/2014 16:34:00 02/06/2014 23:59: 59 CLS Outpatient GEE AMADO MD [id number] 12/14/2013 00:00:00 12/14/2013 23:59: 59 CLS Outpatient WHITE DDS, IBAN Phillip [id number] 10/23/2013 09:58:00 10/23/2013 23:59: 59 CLS Outpatient VAN LAWRENCE APRN [id number] 09/08/2013 09:39:00 09/08/2013 23:59: 59 CLS Outpatient MAURO DOLANJUSTICE [id number] 07/28/2013 08:44:00 07/28/2013 23:59: 59 CLS Outpatient MAURO DOLANJUSTICE [id number] 06/06/2013 15:27:00 06/06/2013 23:59: 59 CLS Outpatient WHITE DDS, JOELLE Gillian [id number] 05/30/2013 09:38:00 05/30/2013 23:59: 59 CLS Outpatient GEE AMADO MD [id number] 04/25/2013 08:38:00 04/25/2013 23:59: 59 CLS Outpatient WHITE DDS, IBAN Phillip [id number] 03/05/2013 00:00:00 03/05/2013 23:59: 59 CLS Outpatient MAURO DOLANJUSTICE [id number] 02/24/2013 07:56:00 02/24/2013 23:59: 59 CLS Outpatient GEE AMADO MD [id number] 01/30/2013 08:00:00 01/30/2013 23:59: 59 CLS Outpatient WHITE DDS, IBAN Phillip [id number] 12/19/2012 00:00:00 12/19/2012 23:59: 59 CLS Outpatient WHITE DDS, IBAN Phillip [id number] 05/24/2012 09:24:00 05/24/2012 23:59: 59 CLS Outpatient GEE AMADO MD [id number] 04/25/2012 09:57:00 04/25/2012 23:59: 59 CLS Outpatient GEE AMADO MD [id number] 04/13/2012 09:38:00 04/13/2012 23:59: 59 [place] [id number] 01/14/2012 14:34:00 01/14/2012 23:59:5 9 CLS Outpatient GEE AMADO MD [id number] 11/23/2012 10:51:00 Document Registration [id number] 08/05/2012 09:03:00 Document Registration [id number] 03/09/2019 12:44:00 23:59:59 CLS Outpatient ILANA SANTAMARIA MD [facility] RAD ATHEROSCLEROSIS [id number] 03/02/2019 12:20:00 23:59:59 CLS Outpatient ILANA SANTAMARIA MD [facility] RAD CLAUDICATION [id number] 02/17/2019 14:50:00 14:00:00 DIS Inpatient ESCOBEDO DO, ZACK V [facility] IRF ENCEPHALOPATHY [id number] 02/05/2019 08:41:00 10:25:00 DIS Emergency ALEXA SOLIZ MD [facility] ER FS PT FOUND UNRESPONSIVE [id number] 01/13/2019 11:15:00 13:35:00 DIS Inpatient ESCOBEDO DO, ZACK V [facility] IRF DEBILITY [id number] 01/10/2019 08:09:00 11:15:00 DIS Inpatient ESCOBEDO DO, ZACK V [facility] 4TH SOA, HEART FAILURE, DM2 , OBESITY, CKD [id number] 07/21/2018 19:26:00 14:57:00 DIS Inpatient Jaime GARSIA MD [facility] ICU AFIB,BRADYCARDIA,CARDIO GENIC SHOCK [id number] 07/11/2018 21:48:00 02:40:00 DIS Emergency MICHAEL DE LA GARZA MD [facility] ER FS FEVER,SOB [id number] 05/31/2018 00:10:00 23:59:59 CLS Preadmit BOOM MILLER MD [facility] LAB ENCOUNTER FOR MONITORIN G COUMADIN THERAPY [id number] 03/29/2018 12:33:00 00:01:00 DIS Outpatient BOOM MILLER MD [facility] LAB ENCOUNTER FOR MONITORIN G COUMADIN THERAPY [id number] 03/09/2018 08:29:00 17:05:00 DIS Outpatient BOOM MILLER MD [facility] CATH CP,CAD,PAF,HTN [id number] 02/05/2018 16:36:00 018 23:59:59 CLS Outpatient BOOM MILLER MD [facility] LAB PT/INR LAB [id number] 09/01/2017 11:42:00 018 23:59:59 CLS Preadmit GEE AMADO MD [facility] RAD MEDICARE ANNUAL WELLNES S VISIT,INITIAL [id number] 06/28/2017 00:42:00 018 23:59:59 CLS Preadmit BOOM MILLER MD [facility] LAB I48.91 [id number] 06/15/2017 10:55:00 018 00:01:00 DIS Outpatient BOOM MILLER MD [facility] LAB I48.91 [id number] 04/03/2017 19:54:00 018 07:02:00 DIS Outpatient BOOM MILLER MD [facility] SLEEP G47.33 OBSTRUCTIVE SLEE P APNEA [id number] 03/24/2017 08:12:00 018 23:59:59 CLS Outpatient BOOM MILLER MD [facility] CATH ATRIAL FIBRILLATION [id number] 03/05/2017 08:13:00 017 13:30:00 DIS Outpatient BOOM MILLER MD [facility] CATH ABN STRESS TEST, CAD, H TN [id number] 03/01/2017 07:44:00 017 23:59:59 CLS Outpatient BOOM MILLER MD [facility] CARD AORTIC VALVE SCLEROSIS [id number] 02/22/2017 11:38:00 017 23:59:59 CLS Outpatient BOOM MILLER MD [facility] CARD I35.8 AORTIC VALVE SCLE ROSIS [id number] 09/11/2015 07:51:00 016 23:59:59 CLS Outpatient ILANA SANTAMARIA MD [facility] RAD STENOSIS [id number] 08/09/2015 17:28:00 016 23:59:59 CLS Outpatient XANDER ESQUIVEL MD [facility] RAD CERVICAL RADICULOPATHY [id number] 03/13/2015 07:10:00 015 14:20:00 DIS Outpatient BOOM MILLER MD [facility] CATH HTN,HLP,CAD,CP [id number] 02/27/2015 11:59:00 015 23:59:59 CLS Outpatient BOOM MILLER MD [facility] CARD HTN,HLD,CPS [id number] 10/31/2013 10:27:00 014 23:59:59 CLS Outpatient VAN LAWRENCE APRN [facility] RAD SCREENING [id number] 08/28/2013 08:36:00 014 17:20:00 DIS Outpatient BOOM MILLER MD [facility] CATH CAD,CP,HLP,HTN,DM [id number] 08/18/2013 12:27:00 014 23:59:59 CLS Outpatient HELENE COTTO [facility] CARD CAD,CP,HLP, HTN,DM [id number] 10/26/2012 12:11:00 013 14:26:00 DIS Emergency RK RAWLS MD [facility] ER ELEVATED BP [id number] 08/07/2015 09:49:00 Document Registration [id number] 11/13/2011 14:00:00 Document Registration
== END 2019-02-24 14:00 | disposition home health service (06) | DRG 92 ==
PROVIDERS: ADMIT Internal Medicine; ATTEND Internal Medicine
DX: G72.81 Critical illness myopathy (principal); G93.40 Encephalopathy, unspecified; I49.5 Sick sinus syndrome; J44.9 Chronic obstructive pulmonary disease, unspecified; I48.0 Paroxysmal atrial fibrillation; E66.2 Morbid (severe) obesity with alveolar hypoventilation; N17.9 Acute kidney failure, unspecified; Z87.09 Personal history of other diseases of the respiratory system; I12.9 Hypertensive chronic kidney disease with stage 1 through stage 4 chronic kidney disease, or unspecified chronic kidney disease; N18.9 Chronic kidney disease, unspecified; K21.9 Gastro-esophageal reflux disease without esophagitis; E11.9 Type 2 diabetes mellitus without complications; M47.816 Spondylosis without myelopathy or radiculopathy, lumbar region; F41.9 Anxiety disorder, unspecified; I25.10 Atherosclerotic heart disease of native coronary artery without angina pectoris; I65.23 Occlusion and stenosis of bilateral carotid arteries; D64.9 Anemia, unspecified; E78.5 Hyperlipidemia, unspecified; I07.1 Rheumatic tricuspid insufficiency; M19.91 Primary osteoarthritis, unspecified site; Z87.891 Personal history of nicotine dependence; Z95.5 Presence of coronary angioplasty implant and graft; Z79.4 Long term (current) use of insulin; Z99.81 Dependence on supplemental oxygen; Z87.01 Personal history of pneumonia (recurrent); Z90.49 Acquired absence of other specified parts of digestive tract; Z90.710 Acquired absence of both cervix and uterus
CPT/HCPCS: 36415; 71045; 80053; 82962; 83540; 83735; 84443; 85025; 93005; 93306; 94640; 94660; 94760

== ENCOUNTER → 2019-03-02 | Outpatient (CLI) | payer MEDICARE, OTHER ==
[~2019-03-02] MED LIST changes: +DILT240C PO; -DILT240C92 PO; +DILT240C97 PO; +DOXA1TAB2 PO; +EMPA10TA PO; +FLUT12AE4 IH; +INSU100V16 SQ; +IPRA3AMP31 IH; -METF500T19 PO; +METF500T8 PO; +METO-387 PO; +METO50TA15 PO; +RIVA15TA PO; +SPIR25TA PO; +SPIR25TA5 PO; +TORS10TA5 PO
--- NOTE | 2019-03-02 15:26 | Diagnostic Imaging Report ---
PROCEDURE: US Bilateral lower extremity arterial. TECHNIQUE: Multiple real-time grayscale images are obtained through both lower extremity arterial systems with color Doppler imaging and color Doppler spectral analysis. INDICATION: Leg pain. FINDINGS: There are no prior studies available for comparison. There is fairly good arterial blood flow to both lower extremities. Biphasic waveforms are seen in the common femoral, superficial femoral, and popliteal arteries bilaterally. There is no abrupt alteration of the velocities at these levels to indicate a hemodynamically significant stenosis. There is a rather significant decrease in the velocity between the popliteal artery and the posterior tibial artery on the left. The waveform in this area also changes to monophasic and I suspect that there is a hemodynamically significant stenosis involving either the origin of the posterior tibial artery or the distal popliteal artery. There is no hemodynamically significant stenosis of the trifurcation arteries on the right. IMPRESSION: 1. There is diminished arterial blood flow on the left. This is felt to be due to a hemodynamically significant stenosis involving the distal popliteal/proximal posterior tibial artery. If further imaging is desired, then CTA of the aorta and lower extremities should be obtained. 2. There is no hemodynamically significant stenosis of the arterial system of the right lower extremity. Dictated by: Dictated on workstation # [id number]
== END ==
LOC: RAD 12:20
PROVIDERS: ATTEND Orthopaedic Surgery Orthopaedic Surgery of the Spine
DX: I70.213 Atherosclerosis of native arteries of extremities with intermittent claudication, bilateral legs (principal)
CPT/HCPCS: 93925

== ENCOUNTER → 2019-03-09 | Outpatient (CLI) | payer MEDICARE, OTHER ==
[~2019-03-09] MED LIST changes: -DILT240C PO; +DILT240C91 PO; +DILT240C92 PO; -DILT240C97 PO; +METF500T19 PO; -METF500T8 PO; -METO-387 PO; +MTP25TSR PO
[2019-03-09 13:25] LABS: CREATININE SERUM 1.26 MG/DL (0.60-1.30)
== END ==
LOC: LAB 12:45
PROVIDERS: ATTEND Orthopaedic Surgery Orthopaedic Surgery of the Spine
DX: I70.90 Unspecified atherosclerosis (principal)

== ENCOUNTER → 2019-03-31 | Outpatient (CLI) | payer MEDICARE, OTHER ==
[2019-03-09 13:25] LABS: CREATININE SERUM 1.26 MG/DL (0.60-1.30)
[~2019-03-31] MED LIST changes: +CATHETER FLUSH 10 ML SYR IV PRN; +DILT240C PO; -DILT240C91 PO; -DILT240C92 PO; +DILT240C97 PO; +HOLD METFORMIN - RECEIVED CONTRAST 20 ML VIAL IV SCH; +IOHEXOL 350 MG/ML 150 ML (OMNIPAQUE 350) VIAL IV ONE; -METF500T19 PO; +METF500T8 PO; +METO-387 PO; -MTP25TSR PO; +NS 100 ML (IVPB) BAG IV ONE
[2019-03-31 11:41] LABS: CREATININE SERUM 1.04 MG/DL (0.60-1.30)
--- NOTE | 2019-03-31 13:24 | Diagnostic Imaging Report ---
INDICATION: Atherosclerotic disease. TECHNIQUE: Axial imaging through the abdomen and pelvis as well as bilateral lower extremities was performed after the administration of intravenous contrast and utilizing the CT angiography protocol. Multiplanar, 3D, and MIP reformations were also performed. FINDINGS: The abdominal aorta shows diffuse atherosclerotic calcifications but is normal in caliber. The origins to the celiac and SMA as well as the CORINNA appear to be patent. There are calcified plaques at the origins of the renal arteries bilaterally but no high-grade stenosis is seen. Bilateral common iliac and external iliac arteries are widely patent. Common femoral arteries are widely patent. Right superficial femoral artery does show some atherosclerotic changes but no high-grade stenosis or occlusion is seen. There is some calcified plaque in the popliteal artery but popliteal is widely patent. The anterior tibial artery on the right is occluded just beyond its origin. There may be some reconstitution at the midcalf. The vessels are very small but do show some contrast filling to the level of the ankle. The peroneal artery is diffusely small but is patent to the ankle. The dominant vessel is the posterior tibial artery which is normal in caliber and is patent to the ankle. There is a stenosis involving the distal left SFA which appears to be fairly high grade. No complete occlusion is seen. The popliteal artery is patent. The anterior tibial artery is small but does appear to be patent to the ankle. There is fairly significant stenosis involving the tibioperoneal trunk with near occlusion. There is some flow within the peroneal artery to the level of the ankle. The posterior tibial artery appears to be occluded proximally but there is some reconstitution of small posterior tibial artery distally which does have flow to the foot and ankle. No discrete liver mass is seen. Liver does show a nodular contour, suggestive of cirrhosis. The gallbladder is surgically absent. Pancreas is unremarkable. Spleen is enlarged at 15.2 cm. No adrenal mass is detected. Kidneys are unremarkable. Bowel loops are normal in caliber. There is small amount of perihepatic ascites. The bladder is unremarkable. IMPRESSION: 1. Diffuse atherosclerotic changes involving bilateral lower extremity arterial systems, as described. There is occlusion of the proximal right anterior tibial artery with reconstitution at the midcalf. There is a high-grade stenosis involving the distal left SFA. There is a significant stenosis of the tibioperoneal trunk on the left. There is probable occlusion of the proximal left posterior tibial artery with reconstitution distally. 2. Nodular liver contour is suggestive of cirrhosis. There is splenomegaly and trace ascites, raising question of portal hypertension. No discrete liver mass is detected. Dictated by: Dictated on workstation # [id number]
== END ==
LOC: RAD 03-09 12:44
PROVIDERS: ATTEND Orthopaedic Surgery Orthopaedic Surgery of the Spine
DX: I70.90 Unspecified atherosclerosis (principal)
CPT/HCPCS: 36415; 75635; 82565; 84520

== ENCOUNTER → 2019-04-17 | Outpatient (CLI) | payer MEDICARE, OTHER ==
[~2019-04-17] MED LIST changes: -CATHETER FLUSH 10 ML SYR IV PRN; -DILT240C PO; +DILT240C91 PO; +DILT240C92 PO; -DILT240C97 PO; -HOLD METFORMIN - RECEIVED CONTRAST 20 ML VIAL IV SCH; -IOHEXOL 350 MG/ML 150 ML (OMNIPAQUE 350) VIAL IV ONE; +METF500T19 PO; -METF500T8 PO; -METO-387 PO; +MTP25TSR PO; -NS 100 ML (IVPB) BAG IV ONE; +RT-ALBUTEROL SULF 2.5 MG/3 ML PRE-MIX VIAL INH ONE
[2019-04-17 08:49] LABS: CREATININE SERUM 1.3 MG/DL (0.60-1.30)
--- NOTE | 2019-04-17 10:15 | Diagnostic Imaging Report ---
EXAMINATION: CT Chest without contrast. TECHNIQUE: Multiple contiguous axial images were obtained through the chest without the use of intravenous contrast. All CT scans use one or more of the following dose optimizing techniques: automated exposure control, MA and/or KvP adjustment based on a patient size and exam type, or iterative reconstruction. HISTORY: Pulmonary edema COMPARISON: 07/11/2018 FINDINGS: There are a few areas of subsegmental thickening in keeping with trace pulmonary edema. No evidence for pneumonia. No pleural effusion. No pneumothorax. No suspicious nodules. There is biventricular cardiac enlargement. Loop recorder is present in the chest wall. There are severe coronary artery calcifications. No pericardial effusion. Aorta is normal in caliber. There is no axillary or supraclavicular lymphadenopathy. There is no mediastinal lymphadenopathy. Liver surface is nodular suggestive of cirrhosis with small amount of ascites. Spleen appears enlarged. There are no suspicious osseus lesions. IMPRESSION: 1. Trace pulmonary edema. 2. Cirrhotic liver with small volume ascites and splenomegaly. Dictated by: Dictated on workstation # [id number]
== END ==
LOC: RT 08:13
PROVIDERS: ATTEND Nurse Practitioner Family
DX: J81.1 Chronic pulmonary edema (principal); K74.60 Unspecified cirrhosis of liver; J30.9 Allergic rhinitis, unspecified; J44.9 Chronic obstructive pulmonary disease, unspecified; G47.33 Obstructive sleep apnea (adult) (pediatric); R16.1 Splenomegaly, not elsewhere classified; R18.8 Other ascites; Z95.818 Presence of other cardiac implants and grafts
CPT/HCPCS: 36415; 71250; 82565; 84520; 94060; 94726; 94729

== ENCOUNTER → 2019-07-19 | Outpatient (CLI) | payer MEDICARE, MEDICAID, OTHER ==
[~2019-07-19] MED LIST changes: +ACHYD1T PO; +ALBU18HF2 PO; +CALC-68 PO; +DOXY100C2 PO; -HYDR-3820 PO; +POTA2TAB5 PO; +PRD20T PO; -RT-ALBUTEROL SULF 2.5 MG/3 ML PRE-MIX VIAL INH ONE; +TURM500C4 PO
--- NOTE | 2019-07-19 18:36 | Diagnostic Imaging Report ---
INDICATION: Shortness of breath. EXAMINATION: PA and lateral chest at 5:33 p.m. FINDINGS: The heart is enlarged and both the heart and the central pulmonary vascularity do seem somewhat more prominent than noted on the prior exam of 02/18/2019. The lateral view also suggests that there is some fluid in the fissures and that there is a small amount of fluid in each lung base. The combination of these findings does indicate that there is an element of mild pulmonary congestion present. There is no confluent pneumonia identified. The mediastinum is not widened. The osseous structures are intact. IMPRESSION: The appearance of the chest has worsened since the prior exam as the heart has increased in size and mild pulmonary edema has developed. A follow-up exam would be recommended for continued evaluation. Dictated by: Dictated on workstation # [id number]
== END ==
LOC: RAD FS 17:18
PROVIDERS: ATTEND Nurse Practitioner
DX: I50.32 Chronic diastolic (congestive) heart failure (principal); J44.9 Chronic obstructive pulmonary disease, unspecified
CPT/HCPCS: 71046

== ENCOUNTER 2019-07-20 16:11 | Inpatient (IN) | payer MEDICARE, MEDICAID, OTHER ==
[2019-07-20] VITALS (13 sets, daily range): BP systolic 132–146; BP diastolic 62–80
[~2019-07-20] VITALS: Ht 162.6 cm; Wt 101.2 kg
[~2019-07-20 16:11] MED LIST changes: -ALBU18HF2 PO; -CALC-68 PO; -DOXY100C2 PO; +METF-865 PO; -METF500T19 PO; -POTA2TAB5 PO; -PRD20T PO; -TURM500C4 PO
--- NOTE | 2019-07-20 16:38 | ED General ---
General Chief Complaint: Dizziness/Syncope Stated Complaint: FAINTED Source of Information: Patient Exam Limitations: No Limitations History of Present Illness Date Seen by Provider: Jul 20, 2019 Time Seen by Provider: 16:20 Initial Comments The patient is a 63-year-old female who presents for evaluation after a fall at home. She states that she became short of breath and fell and hit her face on the ground. She has some bruising and swelling around the right eye. She is on 2 L/m of nasal cannula oxygen 12/10 secondary to COPD. She believes that she may have briefly lost consciousness but is not sure. She saw her doctor yesterday because of shortness of breath and lower extremity edema and had labs and a chest x-ray performed. She is alert and oriented 4, calm, and appears to be in no distress this time. She denies fevers or chills, nausea or vomiting, chest pain, abdominal or back pain, neck pain, headache, focal weakness or numbness, or diaphoresis. She reports a history of insulin-dependent diabetes, hypertension, congestive heart failure, and COPD. Severity: Moderate Associated Systoms: Shortness of Air Allergies and Home Medications Allergies Coded Allergies: morphine (Verified Adverse Reaction, Severe, hallucination, 07/12/18) Home Medications Amlodipine Besylate 10 Mg Tablet, 10 MG PO DAILY, (Reported) Aspirin 81 Mg Tablet.dr, 81 MG PO DAILY, (Reported) Atorvastatin Calcium 40 Mg Tablet, 40 MG PO DAILY, (Reported) Cinnamon Bark 500 Mg Capsule, 500 MG PO BID, (Reported) Cyclobenzaprine HCl 10 Mg Tablet, 20 MG PO BID PRN for MUSCLE SPASMS, (Reported) Doxazosin Mesylate 1 Mg Tablet, 1 MG PO HS Prescribed by: ZACK ESCOBEDO on 02/23/192227 Dulaglutide 0.75 Mg/0.5 Ml Pen.injctr, 0.75 MG SC [place], (Reported) Fenofibrate,Micronized 134 Mg Capsule, 134 MG PO HS, (Reported) Fluticasone/Salmeterol 12 Gm Hfa.aer.ad, 2 PUFF IH BID@ Prescribed by: ZACK ESCOBEDO on 02/23/192227 Gabapentin 600 Mg Tablet, 600 MG PO TID, (Reported) Hydrocodone Bit/Acetaminophen 1 Each Tablet, 1 EA PO TID PRN for PAIN-MODERATE (5-7), (Reported) Insulin Aspart 100 Unit/1 Ml Susp, 10 UNIT SQ TIDAC, (Reported) Insulin Determir 1,000 Units/10 Ml Soln, 15 UNITS SQ HS, (Reported) Ipratropium/Albuterol Sulfate 3 Ml Ampul.neb, 3 ML IH BID PRN for SHORTNESS OF BREATH, (Reported) Isosorbide Mononitrate 60 Mg Tab, 60 MG PO DAILY, (Reported) Magnesium Oxide 400 Mg Tablet, 400 MG PO HS, (Reported) Metformin HCl 500 Mg Tab.er.24h, 500 MG PO BID, (Reported) Metoprolol Succinate 25 Mg Tab.er.24h, 25 MG PO DAILY Prescribed by: ZACK ESCOBEDO on 02/23/192227 Multivitamin-Min/Iron/FA/Vit K 1 Each Tablet, 1 TAB PO DAILY, (Reported) [place]-3/Dha/Epa/Fish Oil 1 Each Capsule, 1,000 MG PO DAILY, (Reported) Pantoprazole Sodium 40 Mg Tablet.dr, 40 MG PO DAILY, (Reported) Primidone 50 Mg Tablet, 50 MG PO HS, (Reported) Rivaroxaban 20 Mg Tablet, 20 MG PO DAILY, (Reported) Sennosides/Docusate Sodium 1 Each Tablet, 1 TAB PO DAILY PRN for CONSTIPATION- 6TH LINE, (Reported) Spironolactone 25 Mg Tablet, 25 MG PO DAILY Prescribed by: ZACK ESCOBEDO on 02/23/192227 Patient Home Medication List Home Medication List Reviewed: Yes Review of Systems Review of Systems Constitutional: no symptoms reported EENTM: other (facial contusion) Respiratory: short of breath Cardiovascular: no symptoms reported Gastrointestinal: no symptoms reported Genitourinary: no symptoms reported Musculoskeletal: no symptoms reported Skin: no symptoms reported Psychiatric/Neurological: No Symptoms Reported Hematologic/Lymphatic: No Symptoms Reported Immunological/Allergic: no symptoms reported All Other Systems Reviewed Negative Unless Noted: Yes Past Pvzpcfu-Vzmzar-Riznqg Hx Past Med/Social Hx: Reviewed Nursing Past Med/Soc Hx Patient Social History Alcohol Use: Denies Use Recreational Drug Use: No Smoking Status: Former Smoker Type Used: Cigarettes Former Smoker, Quit: Mar 24, 1997 2nd Hand Smoke Exposure: No Recent Foreign Travel: No Contact w/Someone Who Travel: No Recent Hopitalizations: Yes Immunizations Up To Date Tetanus Booster (TDap): Unknown PED Vaccines UTD: Yes Date of Pneumonia Vaccine: Mar 05, 2013 Date of Influenza Vaccine: Jan 12, 2019 Seasonal Allergies Seasonal Allergies: No Past Medical History Surgeries: Yes (neck and back surgeries) Coronary Stent, Gallbladder, Hysterectomy, Orthopedic Respiratory: Yes Pneumonia, Pulmonary Embolism, Sleep Apnea, COPD Currently Using CPAP: Yes Cardiac: Yes (stents-has loop recorder placement) Atrial Fibrillation, Coronary Artery Disease, High Cholesterol, Hypertension Neurological: No Reproductive Disorders: No Genitourinary: No Bladder Infection, Renal Failure Gastrointestinal: Yes Gastroesophageal Reflux, Chronic Constipation, Pancreatitis Musculoskeletal: Yes (CHRONIC HIP PAIN BILATERALLY, FX NECK) Arthritis Endocrine: Yes Diabetes, Insulin dep, Diabetes, Non-Insulin dep HEENT: No Loss of Vision: Denies Hearing Impairment: Denies Cancer: No Psychosocial: Yes Anxiety Integumentary: No Blood Disorders: No Family Medical History Patient reports no known family medical history. Diabetes, Hypertension Physical Exam Vital Signs Vital Signs - First Documented 07/20/19 16:30 Temp 36.7 Pulse 105 Resp 30 B/P (MAP) 122/64 (83) Pulse Ox 100 Capillary Refill : Height, Weight, BMI Height: 5'4.00" Weight: 219lbs. 1.0oz. 99.379631tv; 35.13 BMI Method:Stated General Appearance: No Apparent Distress, WD/WN HEENT: PERRL/EOMI, Pharynx Normal, Other (contusion/swelling around right eye) Neck: Full Range of Motion, Non Tender, Supple Respiratory: Lungs Clear, Normal Breath Sounds, No Accessory Muscle Use, No Respiratory Distress Cardiovascular: Regular Rate, Rhythm, No Edema, No Murmur Gastrointestinal: Normal Bowel Sounds, No Pulsatile Mass, Non Tender, Soft Back: No Vertebral Tenderness Extremity: Normal Capillary Refill, Normal Inspection, No Calf Tenderness, Ped al Edema (1+ b/l) Neurologic/Psychiatric: Alert, Oriented x3, Normal Mood/Affect Skin: Normal Color, Warm/Dry Progress/Results/Core Measures Suspected Sepsis SIRS Temperature: Pulse: Respiratory Rate: Laboratory Tests 07/20/19 16:33: White Blood Count 10.2 07/20/19 17:10: White Blood Count 11.1H Blood Pressure / Mean: Laboratory Tests 07/20/19 16:33: Creatinine 1.57H, Platelet Count 185, Total Bilirubin 0.3 07/20/19 17:10: Platelet Count 189 Results/Orders Lab Results Laboratory Tests Test 07/20/19 16:33 07/20/19 17:10 Range/Units White Blood Count 10.2 11.1 H 4.3-11.0 10^3/uL Red Blood Count 1.38 L 1.39 L 4.35-5.85 10^6/uL Hemoglobin 3.5 *L 3.5 *L 11.5-16.0 G/DL Hematocrit 12 *L 13 *L 35-52 % Mean Corpuscular Volume 90 90 80-99 FL Mean Corpuscular Hemoglobin 25 25 25-34 PG Mean Corpuscular Hemoglobin Concent 28 L 28 L 32-36 G/DL Red Cell Distribution Width 15.8 H 15.9 H 10.0-14.5 % Platelet Count 185 189 130-400 10^3/uL Mean Platelet Volume 10.9 H 11.2 H 7.4-10.4 FL Neutrophils (%) (Auto) 83 H 83 H 42-75 % Lymphocytes (%) (Auto) 10 L 10 L 12-44 % Monocytes (%) (Auto) 5 5 0-12 % Eosinophils (%) (Auto) 1 1 0-10 % Basophils (%) (Auto) 0 0 0-10 % Neutrophils # (Auto) 8.5 H 9.3 H 1.8-7.8 X 10^3 Lymphocytes # (Auto) 1.1 1.2 1.0-4.0 X 10^3 Monocytes # (Auto) 0.5 0.6 0.0-1.0 X 10^3 Eosinophils # (Auto) 0.0 0.0 0.0-0.3 10^3/uL Basophils # (Auto) 0.0 0.0 0.0-0.1 10^3/uL Sodium Level 139 135-145 MMOL/L Potassium Level 4.3 3.6-5.0 MMOL/L Chloride Level 103 98-107 MMOL/L Carbon Dioxide Level 20 L 21-32 MMOL/L Anion Gap 16 H 5-14 MMOL/L Blood Urea Nitrogen 46 H 7-18 MG/DL Creatinine 1.57 H 0.60-1.30 MG/DL Estimat Glomerular Filtration Rate 33 BUN/Creatinine Ratio 29 Glucose Level 209 H 70-105 MG/DL Calcium Level 8.8 8.5-10.1 MG/DL Corrected Calcium 9.1 8.5-10.1 MG/DL Total Bilirubin 0.3 0.1-1.0 MG/DL Aspartate Amino Transf (AST/SGOT) 25 5-34 U/L Alanine Aminotransferase (ALT/SGPT) 18 0-55 U/L Alkaline Phosphatase 70 40-136 U/L Troponin I < 0.30 <0.30 NG/ML Pro-B-Type Natriuretic Peptide 2111.0 H <75.0 PG/ML Total Protein 6.5 6.4-8.2 GM/DL Albumin 3.6 3.2-4.5 GM/DL My Orders Orders - TOÑA OJEDA DO Chest 1 View Ap/Pa Only (07/20/19 16:29) Cbc With Automated Diff (07/20/19 16:29) Comprehensive Metabolic Panel (07/20/19 16:29) Probnp Fs (07/20/19 16:29) Abstract Manager (07/20/19 16:29) Troponin I Fs (07/20/19 16:29) Continuous Pulse Ox (07/20/19 16:29) Ct Head/Maxillofacial Wo (07/20/19 16:29) Cbc And Manual Diff (07/20/19 17:11) Red Cells Leukocytes Reduced (07/20/19 17:28) Type And Screen (07/20/19 17:28) Vital Signs/I&O 07/20/19 16:30 Temp 36.7 Pulse 105 Resp 30 B/P (MAP) 122/64 (83) Pulse Ox 100 Capillary Refill : Progress Note : Progress Note @1720 - Repeat Hgb confirms severe anemia. Blood transfusion ordered (2U of O negative). @1730 - Case discussed with critical care doctor, Dr. Luna, who excepts the consultation. @1737 - Dr. Martínez accepts the admission to the ICU. Critical Care Note Critical Care Start Time: 16:50 Stop Time: 17:30 Total Time (minutes) 40 Departure Communication (Admissions) Time/Spoke to Admitting Phy: 17:37 Dr. Hobbs accepts the ICU admission at [facility] Impression Primary Impression: Severe anemia Additional Impressions: Elevated brain natriuretic peptide (BNP) level Syncope Facial contusion Disposition: ADMITTED INPATIENT Condition: Critical Admissions Decision to Admit Reason: Admit from ER (General) Decision to Admit/Date: Jul 20, 2019 Time/Decision to Admit Time: 17:40 Departure-Patient Inst. Referrals: GEE AMADO MD (PCP/Family) Primary Care Physician TOÑA OJEDA DO Jul 20, 2019 16:37
[2019-07-20 16:45] LABS: WHITE BLOOD COUNT 10.2 10^3/uL (4.3-11.0)
[2019-07-20 16:46] LABS: HEMATOCRIT 12 % (35-52); HEMOGLOBIN 3.5 G/DL (11.5-16.0); MEAN CORPUSCULAR HEMOGLOBIN 25 PG (25-34)
[2019-07-20 16:47] LABS: BASOPHILS % (AUTO) 0 % (0-10); EOSINOPHILS % (AUTO) 1 % (0-10); LYMPHOCYTES # (AUTO) 1.1 X 10^3 (1.0-4.0); LYMPHOCYTES % (AUTO) 10 % (12-44); MEAN CORPUSCULAR HGB CONC 28 G/DL (32-36); MEAN CORPUSCULAR VOLUME 90 FL (80-99); MEAN PLATELET VOLUME 10.9 FL (7.4-10.4); MONOCYTES # (AUTO) 0.5 X 10^3 (0.0-1.0); MONOCYTES % (AUTO) 5 % (0-12); NEUTROPHILS # (AUTO) 8.5 X 10^3 (1.8-7.8); NEUTROPHILS % (AUTO) 83 % (42-75); PLATELET COUNT 185 10^3/uL (130-400); RED CELL DISTRIBUTION WIDTH 15.8 % (10.0-14.5)
--- OUTSIDE RECORDS SUMMARY | 2019-07-20 17:10 | XMS REPORT ---
Author Author Sarah AMADO Organization [facility] [place] Address [address] [place] [address] Care Team Providers Care Mechanical Developer Prover Name Role Phone GEE AMADO Unavailable PROBLEMS Type Condition ICD9-CM Code ZEI05-CE Code Onset Dates Condition S tatus SNOMED Code Problem Hyperlipidemia, unspecified hyperlipidemia type E7 8.5 Active 29629257 Problem Paresthesias in right hand R20.2 Act chidi 170118647 Problem Coronary artery disease invo lving nikolai coronary artery of nikolai heart without angina pectoris I25.10 Active 1641 665887130 Problem Essential hypertension I10 Active 01150428 Problem Neck pain M54.2 Active 37848692 Problem Type 2 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, uns pecified E11.40 Active 89561556 Problem Chronic kidney disease, unspecified CKD stage N18. 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 Active 078362921 Problem Chronic diastolic (congestive) heart failure I50.3 2 Active 129031818 Problem GERD (gastroesophageal reflux disease) K21.9 Active 549395127 Problem Obesity (BMI 30-39.9) E66.9 Active 190342541 Problem Chronic kidney disease, stage 3 (moderate) N18.3 Active 462863004 Problem Morbid (severe) obesity due to excess calories E66 .01 Active 706024124 Problem Type 2 diabetes mellitus with other specified complication E11.69 Active 65528886 ALLERGIES No Information ENCOUNTERS Encounter Location Date Diagnosis [facility] [place] [address] [facility] [id number] [address] [place] [phone] 14 Jun, 2019 [facility] [place] [address] [facility] [id number] [address] [place] [phone] Jun, [facility] [place] [address] [facility] [id number] [address] [place] [id number] 31 May, 2019 [facility] [place] [address] [facility] [id number] [address] [place] [phone] 23 May, 2019 Other cirrhosis of liver K74 .69 and Type 2 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, unspecified whether long term care 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 insulin use E11.40 [facility] [place] [address] [facility] [id number] [address] [place] [phone] 16 May, 2019 [facility] [place] [address] [facility] [id number] [address] [place] [id number] 12 May, 2019 Type 2 diabetes mellitus wit h other specified complication E11.69 ; Other cirrhosis of liver K74.69 ; Chronic kidney disease, stage 3 (moderate) N18.3 ; Chronic diastolic (congestive) heart failure I50.32 ; Paroxysmal atrial fibrillation I48.0 ; Morbid (severe) obesity due to excess calories E66.01 and Hyperlipidemia, unspecified hyperlipidemia type E78.5 [facility] [place] [address] [facility] [id number] [address] [place] [phone] 11 May, [address] [id number] [address] Apr, [facility] [place] [address] [facility] [id number] [address] [place] [phone] Mar, [facility] [place] [address] [facility] [id number] [address] [place] [phone] Mar, [facility] [place] [address] [facility] [id number] [address] [place] [id number] Mar, [facility] [place] [address] [facility] [id number] [address] [place] [phone] Mar, [facility] [place] [address] [facility] [id number] [address] [place] [phone] Mar, [address] 340B [id number] [place] [address] Mar, [id number] [place] [phone] Mar, [facility] [place] [address] [id number] [address] [place] [phone] Mar, [facility] [place] [address] [id number] [address] [place] [phone] Mar, [facility] [place] [address] [id number] [address] [place] [phone] Mar, [facility] [place] [address] [id number] [address] [place] [phone] Feb, [facility] [place] [address] [id number] [address] [place] [phone] Feb, Coronary artery disease invo lving nikolai coronary artery of nikolai heart without angina pectoris I25.10 ; Chronic kidney disease, stage 3 (moderate) N18.3 and Morbid (severe) obesity due to excess calories E66.01 [facility] [place] [address] [id number] [address] [place] [phone] Feb, [facility] [place] [address] [id number] [address] [place] [id number] Feb, [facility] [place] [address] [id number] [address] [place] [phone] Feb, [facility] [place] [address] [facility] [id number] [address] [place] [phone] Jan, [facility] [place] [address] [id number] [address] [place] [phone] Jan, [facility] [place] [address] [id number] [address] [place] [phone] Jan, [facility] [place] [address] [id number] [address] [place] [phone] Jan, [facility] [place] [address] [id number] [address] [place] [phone] Jan, [facility] [place] [address] [id number] [address] [place] [phone] Jan, [facility] [place] [address] [id number] [address] [place] [phone] Dec, [facility]STIANO LORD [address] 340B [id number] [place] [address] Dec, [facility] [place] [address] [id number] [address] [place] [phone] Nov, [facility] [place] [address] [id number] [address] [place] [phone] Nov, [facility] [place] [address] [id number] [address] [place] [phone] Nov, [facility] [place] [address] [id number] [address] [place] [phone] Nov, [facility]IAN[facility] LORD [address] 340B [id number] [place] [address] Oct, [facility] [place] [address] [id number] [address] [place] [phone] Oct, [facility]STIAN[facility] LORD [address] 340B [id number] [place] [address] Sep, [facility] [place] [address] [id number] [address] [place] [phone] Sep, [facility] [place] [address] [facility] [id number] [address] [place] [phone] Aug, Type 2 diabetes mellitus wit h unspecified complications E11.8 ; USP 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 and Obesity (BMI 30-39.9) E66.[address] [facility] CH[facility]STIANO LORD [address] 340B [id number] [place] [address] Aug, Type 2 diabetes mellitus wit hout complications E11.[address] 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 CHRISTIANO [address] 340B [id number] [place] [address] July, Screening mammogram, encount er for Z12.31 [facility] [place] [address] [facility] [id number] [address] [place] [id number] July, [facility] [place] [address] [facility] [id number] [address] [place] [phone] July, Paroxysmal atrial fibrillati on I48.0 and Coronary artery disease involving nikolai coronary artery of nikolai heart without angina pectoris I25.10 [facility] [place] [address] [facility] [id number] [address] [place] [phone] Jun, [facility] [place] [address] [facility] [id number] [address] [place] [phone] Jun, [facility] [place] [address] [facility] [id number] [address] [place] [phone] May, [facility] [place] [address] [facility] [id number] [address] [place] [phone] May, Type 2 diabetes mellitus wit h unspecified complications E11.8 ; USP 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 ; Leg cramps R25.2 ; Essential hypertension I10 and Routine adult health maintenance Z00.00 [facility] [place] [address] [facility] [id number] [address] [place] [phone] Apr, [facility] [place] [address] [facility] [id number] [address] [place] [phone] Apr, [facility] [place] [address] [facility] [id number] [address] [place] [phone] Mar, Type 2 diabetes mellitus wit hout complications E11.9 [facility] [place] [address] [facility] [id number] [address] [place] [phone] Mar, Type 2 diabetes mellitus wit hout complications E11.9 [facility] [place] [address] [facility] [id number] [address] [place] [phone] Mar, Type 2 diabetes mellitus wit hout complications E11.9 [facility] [place] [address] [facility] [id number] [address] [place] [phone] 14 Feb, 2018 Essential (primary) hyperten sofie I10 [facility] [place] [address] [facility] [id number] [address] [place] [phone] Feb, [facility] [place] [address] [facility] [id number] [address] [place] [phone] Jan, Type 2 diabetes mellitus wit hout complications E11.9 [facility] [place] [address] [facility] [id number] [address] [place] [phone] 30 Dec, 2017 [facility] [place] [address] [facility] [id number] [address] [place] [phone] Dec, Type 2 diabetes mellitus wit h diabetic neuropathy, unspecified E11.40 ; 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 and Chronic kidney disease, unspecified CKD stage N18.9 [facility] [place] [address] [facility] [id number] [address] [place] [phone] 15 Dec, 2017 Type 2 diabetes mellitus wit hout complications E11.9 [facility] [place] [address] [facility] [id number] [address] [place] [phone] 10 Dec, 2017 [facility] [place] [address] [facility] [id number] [address] [place] [phone] 09 Dec, 2017 Type 2 diabetes mellitus wit hout complications E11.9 [facility] [place] [address] [facility] [id number] [address] [place] [phone] 08 Dec, 2017 [facility] [place] [address] [facility] [id number] [address] [place] [phone] Oct, [facility] [place] [address] [facility] [id number] [address] [place] [phone] Sep, [facility] [place] [address] [facility] [id number] [address] [place] [id number] Aug, [facility] [place] [address] [facility] [id number] [address] [place] [phone] Aug, Exposure to hepatitis C Z20. 5 and Routine adult health maintenance Z00.00 [facility] [place] [address] [facility] [id number] [address] [place] [phone] Aug, Exposure to hepatitis C Z20. 5 [facility] [place] [address] [facility] [id number] [address] [place] [id number] 11 Aug, 2017 Medicare annual wellness vis it, initial Z00.00 ; Coronary artery disease involving nikolai coronary artery of nikolai heart without angina pectoris I25.10 ; Hyperlipidemia, unspecified hyperlipidemia type E78.5 ; Essential hypertension I10 ; GERD (gastroesophageal reflux disease) K21.9 ; Routine adult health maintenance Z00.00 ; Encounter for immunization Z23 ; Type 2 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, unspecified E11.40 and 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 [facility] [place] [address] [facility] [id number] [address] [place] [phone] July, Type 2 diabetes mellitus wit hout complications E11.9 and Type 2 diabetes mellitus without complications E11.9 [facility] [place] [address] [facility] [id number] [address] [place] [id number] July, [facility] [place] [address] [facility] [id number] [address] [place] [phone] July, [facility] [place] [address] [facility] [id number] [address] [place] [id number] Mar, Type 2 diabetes mellitus wit hout complications E11.9 [facility] [place] [address] [facility] [id number] [address] [place] [phone] Mar, [facility] [place] [address] [facility] [id number] [address] [place] [phone] Feb, Type 2 diabetes mellitus wit hout complications E11.9 [facility] [place] [address] [facility] [id number] [address] [place] [phone] Jan, Type 2 diabetes mellitus wit hout complications E11.9 [facility] [place] [address] [facility] [id number] [address] [place] [phone] Jan, Type 2 diabetes mellitus wit hout complications E11.9 [facility] [place] [address] [facility] [id number] [address] [place] [phone] Nov, [facility] [place] [address] [facility] [id number] [address] [place] [phone] Oct, Type 2 diabetes mellitus wit hout complications E11.9 [facility] [place] [address] [facility] [id number] [address] [place] [id number] Oct, Type 2 diabetes mellitus wit hout complications E11.9 ; Essential hypertension I10 and Neck pain M54.2 [place] [address] [facility] [id number] [address] [place] [phone] Sep, [facility] [place] [address] [facility] [id number] [address] [place] [phone] Aug, Type 2 diabetes mellitus wit hout complications E11.9 [facility] [place] [address] [facility] [id number] [address] [place] [id number] Jun, Type 2 diabetes mellitus wit hout complications E11.9 ; Neck pain M54.2 and Essential hypertension I10 [facility] [place] [address] [facility] [id number] [address] [place] [phone] Jun, [facility] [place] [address] [facility] [id number] [address] [place] [phone] Jun, [facility] [place] [address] [place] [id number] [address] [place] [phone] Jun, GERD (gastroesophageal reflu x disease) K21.9 and Type 2 diabetes mellitus without complications E11.9 [facility] [place] [address] [facility] [id number] [address] [place] [phone] Mar, Paresthesias in right hand R 20.2 [facility] [place] [address] [id number] [address] [place] [phone] Feb, Type 2 diabetes mellitus wit hout complications E11.9 [facility] [address] [id number] [address] [place] [id number] Feb, Encounter for dental examina tion Z01.20 [facility] [place] [address] [id number] [address] [place] [phone] Feb, Type 2 diabetes mellitus wit hout complications E11.9 and Neck pain M54.2 [facility] [place] [address] [id number] [address] [place] [id number] Feb, Type 2 diabetes mellitus wit hout complications E11.9 [facility] [address] [id number] [address] [place] [id number] Jan, Dental examination Z01.20 [facility] [place] [address] [id number] [address] [place] [phone] Jan, [facility] [place] [address] [id number] [address] [place] [phone] Jan, [facility] [address] [id number] [address] [place] [id number] Dec, Dental caries K02.9 [facility] [place] [address] [id number] [address] [place] [phone] Nov, [facility] [place] [address] [id number] [address] [place] [phone] Nov, [facility] [place] [address] [id number] [address] [place] [phone] Oct, Type 2 diabetes mellitus wit hout complications E11.9 ; Neck pain M54.2 and Essential hypertension I10 [facility] [place] [address] [id number] [address] [place] [phone] Oct, [facility] [address] [id number] [address] [place] [address] [id number] Oct, Dental examination Z01.20 [facility] [place] [address] [id number] [address] [place] [phone] Sep, [facility] [place] [address] [id number] [address] [place] [phone] Sep, [facility] [place], [facility] [address] [facility] [id number] [address] [place] [id number] Aug, Essential (primary) hyperten sofie I10 [facility] [place] [address] [id number] [address] [place] [id number] Aug, [facility] [place] [address] [id number] [address] [place] [phone] Aug, [facility] [place] [address] [facility] [id number] [address] [place] [phone] July, Essential (primary) hyperten sofie I10 [facility] [place] [address] [facility] [id number] [address] [place] [phone] July, Essential (primary) hyperten sofie I10 and Type 2 diabetes mellitus without complications E11.9 [facility] [place] [address] [facility] [id number] [address] [place] [phone] July, [facility] [place], [facility] [address] [facility] [id number] [address] [place] [phone] Jun, GERD (gastroesophageal reflu x disease) K21.9 [facility] [place], [facility] [address] [facility] [id number] 21 [place] [address] Jun, GERD (gastroesophageal reflu x disease) K21.9 [facility] [place] [address] [facility] [id number] [address] [place] [id number] Jun, [facility] [place] [address] [facility] [id number] [address] [place] [phone] Jun, Neuropathy G62.9 [facility] [place] [address] [facility] [id number] [address] [place] [phone] May, Essential (primary) hyperten sofie I10 [facility] [address] [facility] [id number] [address] [place] [id number] 23 May, 2015 Bronchitis J40 [facility] [place] [address] [facility] [id number] [address] [place] [phone] 15 May, 2015 Type 2 diabetes mellitus wit hout complications E11.9 and Essential (primary) hypertension I10 [facility] [place] [address] [address] 10 May, 2015 [facility] [place] [address] [address] 10 May, 2015 GERD (gastroesophageal reflu x disease) K21.9 [facility] [place] [address] [place] [id number] [place] [phone] 25 Apr, 2015 Other and unspecified hyperl ipidemia 272.4 ; Unspecified essential hypertension 401.9 ; Type 2 diabetes mellitus without complications E11.9 ; Neck pain M54.2 and Paresthesias in right hand R20.2 [facility] [place] [address] [place] [id number] [address] [place] [id number] 11 Apr, 2015 [facility] [place] [address] [id number] 10 Apr, 2015 Neuropathy G62.9 [facility] [place] [address] [place] [id number] [place] [id number] Mar, [facility] [place] [address] [place] [id number] [address] [place] [phone] Feb, [facility] [place] [address] [place] [id number] [address] [place] [address] Jan, [facility] [place] [address] [id number] Dec, [facility] [place] [address] [place] [id number] [address] [place] [id number] Dec, Type 2 diabetes mellitus wit hout complications E11.9 ; Encounter for immunization Z23 and Neck pain M54.2 [place] [id number] [id number] [address] [place] [phone] Dec, [facility] [place] [address] [id number] [address] [place] [phone] Nov, [facility] [place] [address] [id number] [address] [place] [phone] Nov, [facility] [place] [address] [id number] [address] [place] [phone] Oct, [facility] [place] [address] [id number] [address] [place] [phone] Oct, [facility] [place] [address] [id number] [address] [place] [id number] Sep, [facility] [place] [address] [facility] [id number] [address] [place] [phone] Sep, Coronary atherosclerosis of unspecified type of vessel, nikolai or graft 414.00 ; Diabetes mellitus without mention of complication, type II or unspecified type, not stated as uncontrolled 250.00 ; Hyperlipidemia 272.4 and HTN (hypertension) 401.9 [facility] [place] [address] [id number] [address] [place] [id number] Aug, [facility] [place] [address] [facility] [id number] [address] [place] [id number] July, [facility] [place] [address] [facility] [id number] [address] [place] [phone] Jun, [facility] [place] [address] [id number] [address] [place] [phone] Jun, [facility] [place] [address] [id number] [address] [place] [id number] May, [facility] [place] [address] [id number] [address] [place] [id number] May, [facility] [place] [address] [facility] [id number] [address] [place] [phone] May, [facility] [address] [id number] [address] [place] [address], [place] [address] May, [facility] [address] [id number] [address] [place] [address], [place] [address] Apr, 2014 [facility] [address] [id number] [address] [place] [address], [place] [address] Apr, 2014 [facility] [address] [id number] [address] [place] [address], [place] [address] Apr, 2014 [facility] [address] [id number] [address] [place] [address], [place] [address] Apr, 2014 [facility] [address] [id number] [address] [place] [address], [place] [address] Apr, [facility] [address] [id number] [address] [place] [address], [place] [address] Apr, [facility] [address] [id number] [address] [place] [phone] Apr, [facility] [address] [id number] [address] [place] [address], [place] [address] Apr, [facility] [address] [id number] [address] [place] [phone] Mar, [facility] [address] [id number] [address] [place] [phone] Mar, [facility] [address] [id number] [address] [place] [phone] Mar, [facility] [address] [id number] [address] [place] [phone] Mar, [facility] [address] [id number] [address] [place] [id number] Mar, [facility] [address] [id number] [address] [place] [phone] Mar, [facility] [address] [id number] [address] [place] [phone] Mar, [facility] [address] [id number] [address] [place] [address], [place] [address] Mar, [facility] [address] [id number] [address] [place] [address], [place] [address] Feb, [facility] [address] [id number] [address] [place] [address], [place] [address] Feb, [facility] [address] [id number] [address] [place] [address], [place] [address] Feb, [facility] [address] [id number] [address] [place] [address], [place] [address] Feb, [facility] [address] [id number] [address] [place] [address], [place] [address] Feb, [facility] [address] [id number] [address] [place] [address], [place] [address] Feb, [facility] [address] [id number] [address] [place] [address], [place] [address] Feb, [facility] [address] [id number] [address] [place] [address], [place] [address] Feb, [facility] [address] [id number] [address] [place] [address], [place] [address] Feb, [facility] [address] [id number] [address] [place] [address], [place] [address] Feb, [facility] [address] [id number] [address] [place] [address], [place] [address] Jan, [facility] [address] [id number] [address] [place] [address], [place] [address] Jan, [facility] [address] [id number] [address] [place] [address], [place] [address] Dec, [facility] [address] [id number] [address] [place] [address], [place] [address] Dec, [facility] [address] [id number] [address] [place] [address], [place] [address] Dec, [facility] [address] [id number] [address] [place] [address], [place] [address] Dec, [facility] [address] [id number] [address] [place] [address], [place] [address] Nov, [facility] [address] [id number] [address] [place] [address], [place] [address] Nov, [facility] [address] [id number] [address] [place] [address], [place] [address] Nov, [facility] [address] [id number] [address] [place] [address], [place] [address] Nov, [facility] [address] [id number] [address] [place] [address], [place] [address] Oct, [facility] [address] [id number] [address] [place] [address], [place] [address] Oct, [facility] [address] [id number] [address] [place] [address], [place] [address] Oct, [facility] [address] [id number] [address] [place] [address], [place] [address] Oct, [facility] [address] [id number] [address] [place] [address], [place] [address] Oct, [facility] [address] [id number] [address] [place] [address], [place] [address] Sep, [facility] [address] [id number] [address] [place] [address], [place] [address] Sep, [facility] [address] [id number] [address] [place] [address], [place] [address] Sep, [facility] [address] [id number] [address] [place] [address], [place] [address] Sep, [facility] [address] [id number] [address] [place] [address], [place] [address] Sep, [facility] [address] [id number] [address] [place] [address], [place] [address] Sep, [facility] [address] [id number] [address] [place] [address], [place] [address] Aug, [facility] [address] [id number] [address] [place] [address], [place] [address] Aug, [facility] [address] [id number] [address] [place] [address], [place] [address] Aug, [facility] [address] [id number] [address] [place] [address], [place] [address] Aug, [facility] [address] [id number] [address] [place] [address], [place] [address] Aug, [facility] [address] [id number] [address] [place] [address], [place] [address] Aug, [facility] [address] [id number] [address] [place] [address], [place] [address] July, [facility] [address] [id number] [address] [place] [address], [place] [address] July, [facility] [address] [id number] [address] [place] [address], [place] [address] Jun, [facility] [address] [id number] [address] [place] [address], [place] [address] Jun, [facility] [address] [id number] [address] [place] [address], [place] [address] May, [facility] [address] [id number] [address] [place] [address], [place] [address] May, [facility] [address] [id number] [address] [place] [address], [place] [address] May, [facility] [address] [id number] [address] [place] [address], [place] [address] May, [facility] [address] [id number] [address] [place] [address], [place] [address] 10 Apr, 2013 [facility] [address] [id number] [address] [place] [address], [place] [address] 10 Apr, 2013 [facility] [address] [id number] [address] [place] [address], [place] [address] 10 Apr, 2013 [facility] [address] [id number] [address] [place] [address], [place] [address] 10 Apr, 2013 [facility] [address] [id number] [address] [place] [address], [place] [address] Apr, 2013 [facility] [address] [id number] [address] [place] [address], [place] [address] Apr, 2013 [facility] [address] [id number] [address] [place] [address], [place] [address] Feb, [facility] [address] [id number] [address] [place] [address], [place] [address] Feb, [facility] [address] [id number] [address] [place] [address], [place] [address] Feb, [facility] [address] [id number] [address] [place] [address], [place] [address] Feb, [facility] [address] [id number] [address] [place] [address], [place] [address] Jan, [facility] [address] [id number] [address] [place] [address], [place] [address] Jan, [facility] [address] [id number] [address] [place] [address], [place] [address] Dec, [facility] [address] [id number] [address] [place] [address], [place] [address] Dec, [facility] [address] [id number] [address] [place] [address], [place] [address] Dec, [facility] [address] [id number] [address] [place] [address], [place] [address] Dec, [facility] [address] [id number] [address] [place] [address], [place] [address] Oct, [facility] [address] [id number] [facility] [place] [id number] Oct, [facility] [address] [id number] [place] [id number] Oct, [facility] [address] [id number] [address] [place] [address], [place] [address] Oct, [facility] [address] [id number] [address] [place] [address], [place] [address] Sep, [facility] [address] [id number] [address] [place] [address], [place] [address] Sep, [facility] [address] [id number] [address] [place] [address], [place] [address] Aug, [facility] [address] [id number] [address] [place] [address] Aug, [facility] [address] [id number] [address] [place] [address], [place] [address] Aug, [facility] [address] [id number] [address] [place] [address] Aug, [facility] [address] [id number] [address] [place] [address] July, [facility] [address] [id number] [address] [place] [address] Jun, [facility] [address] [id number] [address] [place] [address] May, [facility] [address] [id number] [address] [place] [address] May, [facility] [address] [id number] [address] [place] [address] May, [facility] [address] [id number] [address] [place] [address] 05 May, 2012 [facility] [address] [id number] [address] [place] [address], [place] [address] May, [facility] [address] [id number] [address] [place] [address], [place] [address] Apr, [facility] [address] [id number] [address] [place] [address], [place] [address] Apr, [facility] [address] [id number] [address] [place] [address], [place] [address] Apr, [facility] [address] [id number] [address] [place] [address], [place] [address] Apr, [facility] [address] [id number] [address] [place] [address], [place] [address] Mar, [facility] [address] [id number] [address] [place] [address], [place] [address] Mar, [facility] [address] [id number] [address] [place] [address], [place] [address] Mar, [facility] [address] [id number] [address] [place] [address], [place] [address] Mar, [facility] [address] [id number] [address] [place] [address], [place] [address] 16 Jan, 2012 [facility] [address] [id number] [address] [place] [address], [place] [address] 16 Jan, 2012 [facility] [address] [id number] [address] [place] [address], [place] [address] 15 Jan, 2012 [facility] [address] [id number] [address] [place] [address], [place] [address] 15 Jan, 2012 [facility] [address] [id number] [address] [place] [address], [place] [address] Jan, [facility] [address] [id number] [address] [place] [address], [place] [address] Jan, [facility] [place] [address] [id number] [address] [place] [address] Jan, [facility] [place] [address] [id number] [address] [place] [address] Jan, [facility] [place] [address] [id number] [address] [place] [address] Jan, [facility] [place] [address] [id number] [address] [place] [address] Jan, [facility] [place] [address] [id number] [address] [place] [address] Dec, [facility] [place] [address] [id number] [address] [place] [address] Dec, [facility] [place] [address] [id number] [address] [place] [id number] Dec, [facility] [place] [address] [id number] [address] [place] [id number] Nov, [facility] [place] [address] [id number] [address] [place] [address] Nov, [facility] [place] [address] [id number] [address] [place] [address] Nov, [facility] [place] [address] [id number] [address] [place] [address] Nov, [facility] [place] [address] [id number] [address] [place] [id number] Oct, [facility] [place], [facility] [address] [id number] [address] [place] [phone] Oct, IMMUNIZATIONS No Known Immunizations SOCIAL HISTORY Never Assessed REASON FOR VISIT PLAN OF CARE VITAL SIGNS Height 64 in 2014-04-30 Weight 186.38 lbs 2014-04-30 Temperature 97.5 degrees Fahrenheit 2014-04-30 Heart Rate 60 bpm 2014-04-30 Respiratory Rate 16 2014-04-30 Blood pressure systolic 98 mmHg 2014-04-30 Blood pressure diastolic 60 mmHg 2014-04-30 MEDICATIONS Unknown Medications RESULTS No Results PROCEDURES No Known procedures INSTRUCTIONS MEDICATIONS ADMINISTERED No Known Medications MEDICAL (GENERAL) HISTORY Type Description Date Medical History Diabetes type 2 Medical History hypertension Medical History hyperlipidemia Medical History neck fracture Jan 2014 Medical History heart attack - afib Surgical History cholecystectomy Surgical History hysterectomy Surgical History neck surgeryafter fracturing it in 2013 Surgical History carpal tunnel surgery; right Surgical History back surgery; discectomy Surgical History Stents 2013 Surgical History temp pace maker- removed now and has a m onitor 07/2018 Surgical History colonoscopy and egd 01/2019 Hospitalization History surgeries Hospitalization History [facility] 06/2018 Hospitalization History [facility]- 07/2018 Hospitalization History [facility] - heart attack and rehab -03/02/2019
--- OUTSIDE RECORDS SUMMARY | 2019-07-20 17:10 | XMS REPORT ---
Author Author Sarah AMADO Organization [facility] Address [address] [place] [address] Care Team Providers Care Gore Stitcher Name Role Phone GEE AMADO Unavailable PROBLEMS Type Condition ICD9-CM Code ORP43-WS Code Onset Dates Condition S tatus SNOMED Code Problem Hyperlipidemia, unspecified hyperlipidemia type E7 8.5 Active 81461124 Problem Paresthesias in right hand R20.2 Act chidi 337899789 Problem Coronary artery disease invo lving grayling coronary artery of grayling heart without angina pectoris I25.10 Active 1641 915290233 Problem Essential hypertension I10 Active 80303678 Problem Neck pain M54.2 Active 70938863 Problem Type 2 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, uns pecified E11.40 Active 31600087 Problem Chronic kidney disease, unspecified CKD stage N18. 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 647556316 Problem Chronic diastolic (congestive) heart failure I50.3 2 Active 025165244 Problem GERD (gastroesophageal reflux disease) K21.9 Active 967306435 Problem Obesity (BMI 30-39.9) E66.9 Active 166061773 Problem Chronic kidney disease, stage 3 (moderate) N18.3 Active 043518067 Problem Morbid (severe) obesity due to excess calories E66 .01 Active 984056628 Problem Type 2 diabetes mellitus with other specified complication E11.69 Active 32976922 ALLERGIES No Information ENCOUNTERS Encounter Location Date Diagnosis [facility] [address] [facility] [id number] [address] [place] [phone] 14 Jun, 2019 [facility] [address] [facility] [id number] [address] [place] [address] Jun, [facility] [address] [facility] [id number] [address] [place] [phone] 31 May, 2019 [facility] [address] [facility] [id number] [address] [place] [address] 23 May, 2019 Other cirrhosis of liver K74 .69 and Type 2 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, unspecified whether terminal gauger insulin use E11.40 [facility] [address] [facility] [id number] [address] [place] [phone] 16 May, 2019 [facility] [address] [facility] [id number] [address] [place] [address] 12 May, 2019 Type 2 diabetes mellitus wit h other specified complication E11.69 ; Other cirrhosis of liver K74.69 ; Chronic kidney disease, stage 3 (moderate) N18.3 ; Chronic diastolic (congestive) heart failure I50.32 ; Paroxysmal atrial fibrillation I48.0 ; Morbid (severe) obesity due to excess calories E66.01 and Hyperlipidemia, unspecified hyperlipidemia type E78.5 [facility] [address] [facility] [id number] [address] [place] [phone] 11 May, [address] [id number] [address] Apr, [facility] [address] [facility] [id number] [address] [place] [phone] Mar, [facility] [address] [facility] [id number] [address] [place] [phone] Mar, [facility] [address] [facility] [id number] [address] [place] [address] Mar, [facility] [address] [facility] [id number] [address] [place] [phone] Mar, [facility] [address] [facility] [id number] [address] [place] [address] Mar, [address] [id number] [place] [address] Mar, [id number] [place] [phone] Mar, [facility] [address] [id number] [address] [place] [phone] Mar, [facility] [address] [id number] [address] [place] [phone] Mar, [facility] [address] [id number] [address] [place] [phone] Mar, [facility] [address] [id number] [address] [place] [address] Feb, [facility] [address] [id number] [address] [place] [phone] Feb, Coronary artery disease invo lving grayling coronary artery of grayling heart without angina pectoris I25.10 ; Chronic kidney disease, stage 3 (moderate) N18.3 and Morbid (severe) obesity due to excess calories E66.01 [facility] [address] [id number] [address] [place] [phone] Feb, [facility] [address] [id number] [address] [place] [address] Feb, [facility] [address] [id number] [address] [place] [address] Feb, [facility] [address] [facility] [id number] [address] [place] [phone] Jan, [facility] [address] [id number] [address] [place] [phone] Jan, [facility] [address] [id number] [address] [place] [phone] Jan, [facility] [address] [id number] [address] [place] [address] Jan, [facility] [address] [id number] [address] [place] [phone] Jan, [facility] [address] [id number] [address] [place] [phone] Jan, [facility] [address] [id number] [address] [place] [phone] Dec, [facility] CHRISTIANO LORD [address] [id number] [place] [address] Dec, [facility] [address] [id number] [address] [place] [phone] Nov, [facility] [address] [id number] [address] [place] [phone] Nov, [facility] [address] [id number] [address] [place] [address] Nov, [facility] [address] [id number] [address] [place] [address] Nov, [facility] CHRISTIANO LORD [address] [id number] [place] [address] Oct, [facility] [address] [id number] [address] [place] [phone] Oct, [facility] CHRISTIAN[place] LORD [address] [id number] [place] [address] Sep, [facility] [address] [id number] [address] [place] [phone] Sep, [facility] [address] [facility] [id number] [address] [place] [address] Aug, Type 2 diabetes mellitus wit h unspecified complications E11.8 ; [facility] 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 and Obesity (BMI 30-39.9) E66.9 [facility] CHRISTIANO LORD [address] [id number] [place] [address] Aug, Type 2 diabetes mellitus wit hout complications E11.9 [facility] CHRISTIANO [address] [id number] [place] [address] Aug, Type 2 diabetes mellitus wit hout complications E11.9 [facility] [address] [id number] [address] [place] [address] Aug, [address] [id number] [place] [address] July, 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 and Type 2 diabetes mellitus with unspecified complications E11.8 [facility] CHRISTIANO [address] [id number] [place] [address] July, Screening mammogram, encount er for Z12.31 [facility] [address] [facility] [id number] [address] [place] [address] July, [facility] [address] [facility] [id number] [address] [place] [address] July, Paroxysmal atrial fibrillati on I48.0 and Coronary artery disease involving grayling coronary artery of grayling heart without angina pectoris I25.10 [facility] [address] [facility] [id number] [address] [place] [phone] Jun, [facility] [address] [facility] [id number] [address] [place] [phone] Jun, [facility] [address] [facility] [id number] [address] [place] [phone] May, [facility] [address] [facility] [id number] [address] [place] [address] May, Type 2 diabetes mellitus wit h unspecified complications E11.8 ; [facility]PC 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 ; Leg cramps R25.2 ; Essential hypertension I10 and Routine adult health maintenance Z00.00 [facility] [address] [facility] [id number] [address] [place] [address] Apr, [facility] [address] [facility] [id number] [address] [place] [phone] Apr, [facility] [address] [facility] [id number] [address] [place] [address] Mar, Type 2 diabetes mellitus wit hout complications E11.9 [facility] [address] [facility] [id number] [address] [place] [address] Mar, Type 2 diabetes mellitus wit hout complications E11.9 [facility] [address] [facility] [id number] [address] [place] [address] Mar, Type 2 diabetes mellitus wit hout complications E11.9 [facility] [address] [facility] [id number] [address] [place] [phone] 14 Feb, 2018 Essential (primary) hyperten sofie I10 [facility] [address] [facility] [id number] [address] [place] [phone] Feb, [facility] [address] [facility] [id number] [address] [place] [address] Jan, Type 2 diabetes mellitus wit hout complications E11.9 [facility] [address] [facility] [id number] [address] [place] [address] 30 Dec, 2017 [facility] [address] [facility] [id number] [address] [place] [address] Dec, Type 2 diabetes mellitus wit h diabetic neuropathy, unspecified E11.40 ; 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 and Chronic kidney disease, unspecified CKD stage N18.9 [facility] [address] [facility] [id number] [address] [place] [phone] 15 Dec, 2017 Type 2 diabetes mellitus wit hout complications E11.9 [facility] [address] [facility] [id number] [address] [place] [phone] 10 Dec, 2017 [facility] [address] [facility] [id number] [address] [place] [phone] 09 Dec, 2017 Type 2 diabetes mellitus wit hout complications E11.9 [facility] [address] [facility] [id number] [address] [place] [phone] 08 Dec, 2017 [facility] [address] [facility] [id number] [address] [place] [phone] Oct, [facility] [address] [facility] [id number] [address] [place] [phone] Sep, [facility] [address] [facility] [id number] [address] [place] [id number] Aug, [facility] [address] [facility] [id number] [address] [place] [address] Aug, Exposure to hepatitis C Z20. 5 and Routine adult health maintenance Z00.00 [facility] [address] [facility] [id number] [address] [place] [phone] Aug, Exposure to hepatitis C Z20. 5 [facility] [address] [facility] [id number] [address] [place] [address] 11 Aug, 2017 Medicare annual wellness vis it, initial Z00.00 ; Coronary artery disease involving grayling coronary artery of grayling heart without angina pectoris I25.10 ; Hyperlipidemia, unspecified hyperlipidemia type E78.5 ; Essential hypertension I10 ; GERD (gastroesophageal reflux disease) K21.9 ; Routine adult health maintenance Z00.00 ; Encounter for immunization Z23 ; Type 2 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, unspecified E11.40 and 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 [facility] [address] [facility] [id number] [address] [place] [phone] July, Type 2 diabetes mellitus wit hout complications E11.9 and Type 2 diabetes mellitus without complications E11.9 [facility] [address] [facility] [id number] [address] [place] [address] July, [facility] [address] [facility] [id number] [address] [place] [phone] July, [facility] [address] [facility] [id number] [address] [place] [phone] Mar, Type 2 diabetes mellitus wit hout complications E11.9 [facility] [address] [facility] [id number] [address] [place] [address] Mar, [facility] [address] [facility] [id number] [address] [place] [phone] Feb, Type 2 diabetes mellitus wit hout complications E11.9 [facility] [address] [facility] [id number] [address] [place] [phone] Jan, Type 2 diabetes mellitus wit hout complications E11.9 [facility] [address] [facility] [id number] [address] [place] [address] Jan, Type 2 diabetes mellitus wit hout complications E11.9 [facility] [address] [facility] [id number] [address] [place] [phone] Nov, [facility] [address] [facility] [id number] [address] [place] [address] Oct, Type 2 diabetes mellitus wit hout complications E11.9 [facility] [address] [facility] [id number] [address] [place] [phone] Oct, Type 2 diabetes mellitus wit hout complications E11.9 ; Essential hypertension I10 and Neck pain M54.2 [place] [address] [facility] [id number] [address] [place] [address] Sep, [facility] [address] [facility] [id number] [address] [place] [address] Aug, Type 2 diabetes mellitus wit hout complications E11.9 [facility] [address] [facility] [id number] [address] [place] [address] Jun, Type 2 diabetes mellitus wit hout complications E11.9 ; Neck pain M54.2 and Essential hypertension I10 [facility] [address] [facility] [id number] [address] [place] [address] Jun, [facility] [address] [facility] [id number] [address] [place] [phone] Jun, [facility] [address] [place] [id number] [address] [place] [phone] Jun, GERD (gastroesophageal reflu x disease) K21.9 and Type 2 diabetes mellitus without complications E11.9 [facility] [address] [facility] [id number] [address] [place] [address] Mar, Paresthesias in right hand R 20.2 [facility] [address] [id number] [address] [place] [address] Feb, Type 2 diabetes mellitus wit hout complications E11.9 [facility] [address] [id number] [address] [place] [id number] Feb, Encounter for dental examina tion Z01.20 [facility] [address] [id number] [address] [place] [phone] Feb, Type 2 diabetes mellitus wit hout complications E11.9 and Neck pain M54.2 [facility] [address] [id number] [address] [place] [address] Feb, Type 2 diabetes mellitus wit hout complications E11.9 [facility] [address] [id number] [address] [place] [id number] Jan, Dental examination Z01.20 [facility] [address] [id number] [address] [place] [address] Jan, [facility] [address] [id number] [address] [place] [phone] Jan, [facility] [address] [id number] [address] [place] [id number] Dec, Dental caries K02.9 [facility] [address] [id number] [address] [place] [address] Nov, [facility] [address] [id number] [address] [place] [phone] Nov, [facility] [address] [id number] [address] [place] [address] Oct, Type 2 diabetes mellitus wit hout complications E11.9 ; Neck pain M54.2 and Essential hypertension I10 [facility] [address] [id number] [address] [place] [phone] Oct, [facility] [address] [id number] [address] [place] [id number] Oct, Dental examination Z01.20 [facility] [address] [id number] [address] [place] [phone] Sep, [facility] [address] [id number] [address] [place] [address] Sep, [facility] [address] [facility] [id number] [address] [place] [address] Aug, Essential (primary) hyperten sofie I10 [facility] [address] [id number] [address] [place] [phone] Aug, [facility] [address] [id number] [address] [place] [phone] Aug, [facility] [address] [facility] [id number] [address] [place] [phone] July, Essential (primary) hyperten sofie I10 [facility] [address] [facility] [id number] [address] [place] [phone] July, Essential (primary) hyperten sofie I10 and Type 2 diabetes mellitus without complications E11.9 [facility] [address] [facility] [id number] [address] [place] [phone] July, [facility] [address] [facility] [id number] [address] [place] [phone] Jun, GERD (gastroesophageal reflu x disease) K21.9 [facility] [address] [facility] [id number] [address] [place] [phone] Jun, GERD (gastroesophageal reflu x disease) K21.9 [facility] [address] [facility] [id number] [address] [place] [phone] Jun, [facility] [address] [facility] [id number] [address] [place] [phone] Jun, Neuropathy G62.9 [facility] [address] [facility] [id number] [address] [place] [phone] May, Essential (primary) hyperten sofie I10 [facility] [address] [facility] [id number] [address] [place] [phone] 23 May, 2015 Bronchitis J40 [facility] [address] [facility] [id number] [address] [place] [phone] 15 May, 2015 Type 2 diabetes mellitus wit hout complications E11.9 and Essential (primary) hypertension I10 [facility] [address] [id number] 10 May, 2015 [facility] [address] [id number] 10 May, 2015 GERD (gastroesophageal reflu x disease) K21.9 [facility] [address] [place] [id number] [place] [phone] 25 Apr, 2015 Other and unspecified hyperl ipidemia 272.4 ; Unspecified essential hypertension 401.9 ; Type 2 diabetes mellitus without complications E11.9 ; Neck pain M54.2 and Paresthesias in right hand R20.2 [facility] [address] [place] [id number] [address] [place] [phone] 11 Apr, 2015 [facility] [address] [id number] 10 Apr, 2015 Neuropathy G62.9 [facility] [address] [place] [id number] [place] [phone] Mar, [facility] [id number] [place] [phone] Feb, [facility] [address] [place] [address] [id number] [address] [place] [phone] Jan, [facility] [address] [id number] Dec, [facility] [address] [place] [address] [id number] [address] [place] [phone] Dec, Type 2 diabetes mellitus wit hout complications E11.9 ; Encounter for immunization Z23 and Neck pain M54.2 [place] [id number] [id number] [address] [place] [id number] Dec, [facility] [address] [id number] [address] [place] [id number] Nov, [facility] [address] [id number] [address] [place] [id number] Nov, [facility] [address] [id number] [address] [place] [id number] Oct, [facility] [address] [id number] [address] [place] [id number] Oct, [facility] [address] [id number] [address] [place] [id number] Sep, [facility] [address] [facility] [id number] [address] [place] [id number] Sep, Coronary atherosclerosis of unspecified type of vessel, grayling or graft 414.00 ; Diabetes mellitus without mention of complication, type II or unspecified type, not stated as uncontrolled 250.00 ; Hyperlipidemia 272.4 and HTN (hypertension) 401.9 [facility] [address] [id number] [address] [place] [phone] Aug, [facility] [address] [facility] [id number] [address] [place] [phone] July, [facility] [address] [facility] [id number] [address] [place] [id number] Jun, [facility] [address] [address] [id number] [address] [place] [id number] Jun, [facility] [address] [id number] [address] [place] [id number] May, [facility] [address] [id number] [address] [place] [address] May, [facility] [address] [facility] [id number] [address] [place] [id number] May, [facility] [address] [id number] [address] [place] [address], [place] [address] May, [facility] [address] [id number] [address] [place] [address], [place] [address] Apr, 2014 [facility] [address] [id number] [address] [place] [address], [place] [address] Apr, 2014 [facility] [address] [id number] [address] [place] [address], [place] [address] Apr, 2014 [facility] [address] [id number] [address] [place] [address], [place] [address] Apr, 2014 [facility] [address] [id number] [address] [place] [address], [place] [address] Apr, [facility] [address] [id number] [address] [place] [address], [place] [address] Apr, [facility] [address] [id number] [address] [place] [id number] Apr, [facility] [address] [id number] [address] [place] [address], [place] [address] Apr, [facility] [address] [id number] [address] [place] [id number] Mar, [facility] [address] [id number] [address] [place] [address] Mar, [facility] [address] [id number] [address] [place] [id number] Mar, [facility] [address] [id number] [address] [place] [id number] Mar, [facility] [address] [id number] [address] [place] [address] Mar, [facility] [address] [id number] [address] [place] [id number] Mar, [facility] [address] [id number] [address] [place] [id number] Mar, [facility] [address] [id number] [address] [place] [address], [place] [address] Mar, [facility] [address] [id number] [address] [place] [address], [place] [address] Feb, [facility] [address] [id number] [address] [place] [address], [place] [address] Feb, [facility] [address] [id number] [address] [place] [address], [place] [address] Feb, [facility] [address] [id number] [address] [place] [address], [place] [address] Feb, [facility] [address] [id number] [address] [place] [address], [place] [address] Feb, [facility] [address] [id number] [address] [place] [address], [place] [address] Feb, [facility] [address] [id number] [address] [place] [address], [place] [address] Feb, [facility] [address] [id number] [address] [place] [address], [place] [address] Feb, [facility] [address] [id number] [address] [place] [address], [place] [address] Feb, [facility] [address] [id number] [address] [place] [address], [place] [address] Feb, [facility] [address] [id number] [address] [place] [address], [place] [address] Jan, [facility] [address] [id number] [address] [place] [address], [place] [address] Jan, [facility] [address] [id number] [address] [place] [address], [place] [address] Dec, [facility] [address] [id number] [address] [place] [address], [place] [address] Dec, [facility] [address] [id number] [address] [place] [address], [place] [address] Dec, [facility] [address] [id number] [address] [place] [address], [place] [address] Dec, [facility] [address] [id number] [address] [place] [address], [place] [address] Nov, [facility] [address] [id number] [address] [place] [address], [place] [address] Nov, [facility] [address] [id number] [address] [place] [address], [place] [address] Nov, [facility] [address] [id number] [address] [place] [address], [place] [address] Nov, [facility] [address] [id number] [address] [place] [address], [place] [address] Oct, [facility] [address] [id number] [address] [place] [address], [place] [address] Oct, [facility] [address] [id number] [address] [place] [address], [place] [address] Oct, [facility] [address] [id number] [address] [place] [address], [place] [address] Oct, [facility] [address] [id number] [address] [place] [address], [place] [address] Oct, [facility] [address] [id number] [address] [place] [address], [place] [address] Sep, [facility] [address] [id number] [address] [place] [address], [place] [address] Sep, [facility] [address] [id number] [address] [place] [address], [place] [address] Sep, [facility] [address] [id number] [address] [place] [address], [place] [address] Sep, [facility] [address] [id number] [address] [place] [address], [place] [address] Sep, [facility] [address] [id number] [address] [place] [address], [place] [address] Sep, [facility] [address] [id number] [address] [place] [address], [place] [address] Aug, [facility] [address] [id number] [address] [place] [address], [place] [address] Aug, [facility] [address] [id number] [address] [place] [address], [place] [address] Aug, [facility] [address] [id number] [address] [place] [address], [place] [address] Aug, [facility] [address] [id number] [address] [place] [address], [place] [address] Aug, [facility] [address] [id number] [address] [place] [address], [place] [address] Aug, [facility] [address] [id number] [address] [place] [address], [place] [address] July, [facility] [address] [id number] [address] [place] [address], [place] [address] July, [facility] [address] [id number] [address] [place] [address], [place] [address] Jun, [facility] [address] [id number] [address] [place] [address], [place] [address] Jun, [facility] [address] [id number] [address] [place] [address], [place] [address] May, [facility] [address] [id number] [address] [place] [address], [place] [address] May, [facility] [address] [id number] [address] [place] [address], [place] [address] May, [facility] [address] [id number] [address] [place] [address], [place] [address] May, [facility] [address] [id number] [address] [place] [address], [place] [address] 10 Apr, 2013 [facility] [address] [id number] [address] [place] [address], [place] [address] 10 Apr, 2013 [facility] [address] [id number] [address] [place] [address], [place] [address] 10 Apr, 2013 [facility] [address] [id number] [address] [place] [address], [place] [address] 10 Apr, 2013 [facility] [address] [id number] [address] [place] [address], [place] [address] Apr, 2013 [facility] [address] [id number] [address] [place] [address], [place] [address] Apr, 2013 [facility] [address] [id number] [address] [place] [address], [place] [address] Feb, [facility] [address] [id number] [address] [place] [address], [place] [address] Feb, [facility] [address] [id number] [address] [place] [address], [place] [address] Feb, [facility] [address] [id number] [address] [place] [address], [place] [address] Feb, [facility] [address] [id number] [address] [place] [address], [place] [address] Jan, [facility] [address] [id number] [address] [place] [address], [place] [address] Jan, [facility] [address] [id number] [address] [place] [address], [place] [address] Dec, [facility] [address] [id number] [address] [place] [address], [place] [address] Dec, [facility] [address] [id number] [address] [place] [address], [place] [address] Dec, [facility] [address] [id number] [address] [place] [address], [place] [address] Dec, [facility] [address] [id number] [address] [place] [address], [place] [address] Oct, [facility] [address] [id number] [facility] [id number] Oct, [facility] [address] [id number] [place] [id number] Oct, [facility] [address] [id number] [address] [place] [address], [place] [address] Oct, [facility] [address] [id number] [address] [place] [address], [place] [address] Sep, [facility] [address] [id number] [address] [place] [address], [place] [address] Sep, [facility] [address] [id number] [address] [place] [address], [place] [address] Aug, [facility] [address] [id number] [address] [place] [id number] Aug, [facility] [address] [id number] [address] [place] [address], [place] [address] Aug, [facility] [address] [id number] [address] [place] [address] Aug, [facility] [address] [id number] [address] [place] [id number] July, [facility] [address] [id number] [address] [place] [address] Jun, [facility] [address] [id number] [address] [place] [address] May, [facility] [address] [id number] [address] [place] [address] May, [facility] [address] [id number] [address] [place] [address] May, [facility] [address] [id number] [address] [place] [id number] 05 May, 2012 [facility] [address] [id number] [address] [place] [address], [place] [address] May, [facility] [address] [id number] [address] [place] [address], [place] [address] Apr, [facility] [address] [id number] [address] [place] [address], [place] [address] Apr, [facility] [address] [id number] [address] [place] [address], [place] [address] Apr, [facility] [address] [id number] [address] [place] [address], [place] [address] Apr, [facility] [address] [id number] [address] [place] [address], [place] [address] Mar, [facility] [address] [id number] [address] [place] [address], [place] [address] Mar, [facility] [address] [id number] [address] [place] [address], [place] [address] Mar, [facility] [address] [id number] [address] [place] [address], [place] [address] Mar, [facility] [address] [id number] [address] [place] [address], [place] [address] 16 Jan, 2012 [facility] [address] [id number] [address] [place] [address], [place] [address] 16 Jan, 2012 [facility] [address] [id number] [address] [place] [address], [place] [address] 15 Jan, 2012 [facility] [address] [id number] [address] [place] [address], [place] [address] 15 Jan, 2012 [facility] [address] [id number] [address] [place] [address], [place] [address] Jan, [facility] [address] [id number] [address] [place] [address], [place] [address] Jan, [facility] [address] [id number] [address] [place] [id number] Jan, [facility] [address] [id number] [address] [place] [id number] Jan, [facility] [address] [id number] [address] [place] [id number] Jan, [facility] [address] [id number] [address] [place] [id number] Jan, [facility] [address] [id number] [address] [place] [id number] Dec, [facility] [address] [id number] [address] [place] [id number] Dec, [facility] [address] [id number] [address] [place] [id number] Dec, [facility] [address] [id number] [address] [place] [id number] Nov, [facility] [address] [id number] [address] [place] [id number] Nov, [facility] [address] [id number] [address] [place] [id number] Nov, [facility] [address] [id number] [address] [place] [id number] Nov, [facility] [address] [id number] [address] [place] [id number] Oct, [facility] [address] [id number] [address] [place] [id number] Oct, IMMUNIZATIONS No Known Immunizations SOCIAL HISTORY Never Assessed REASON FOR VISIT PLAN OF CARE VITAL SIGNS Height 64 in 2014-02-06 Weight 206 lbs 2014-02-06 Temperature 98 degrees Fahrenheit 2014-02-06 Heart Rate 78 bpm 2014-02-06 Respiratory Rate 16 2014-02-06 Blood pressure systolic 148 mmHg 2014-02-06 Blood pressure diastolic 80 mmHg 2014-02-06 MEDICATIONS Unknown Medications RESULTS No Results PROCEDURES [...] egd 01/2019 Hospitalization History surgeries Hospitalization History [place] 06/2018 Hospitalization History [facility] 07/2018 Hospitalization History [facility] - heart attack and rehab -03/02/2019
--- OUTSIDE RECORDS SUMMARY | 2019-07-20 17:11 | XMS REPORT ---
Author Author Sarah Garber Organization [facility] Address [address] [place] [address] Care Team Providers Care Wine Consultant Name Role Phone VAN Garber Unavailable PROBLEMS Type Condition ICD9-CM Code MFP17-BC Code Onset Dates Condition S tatus SNOMED Code Problem Hyperlipidemia, unspecified hyperlipidemia type E7 8.5 Active 04493993 Problem Paresthesias in right hand R20.2 Act chidi 616824666 Problem Coronary artery disease invo lving [place] coronary artery of [place] heart without angina pectoris I25.10 Active 1641 831792474 Problem Essential hypertension I10 Active 93335604 Problem Neck pain M54.2 Active 26424260 Problem Type 2 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, uns pecified E11.40 Active 23692553 Problem Chronic kidney disease, unspecified CKD stage N18. 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 115256947 Problem Chronic diastolic (congestive) heart failure I50.3 2 Active 412421266 Problem GERD (gastroesophageal reflux disease) K21.9 Active 838850916 Problem Obesity (BMI 30-39.9) E66.9 Active 378521136 Problem Chronic kidney disease, stage 3 (moderate) N18.3 Active 510690040 Problem Morbid (severe) obesity due to excess calories E66 .01 Active 363641079 Problem Type 2 diabetes mellitus with other specified complication E11.69 Active 63306314 ALLERGIES No Information ENCOUNTERS Encounter Location Date Diagnosis [facility] [address] [facility] [id number] [address] [place] [address] Jun, [facility] [address] [facility] [id number] [address] [place] [address] May, [facility] [address] [facility] [id number] [address] [place] [address] 23 May, 2019 Other cirrhosis of liver K74 .69 and Type 2 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, unspecified whether lobsterman insulin use E11.40 [facility] [address] [facility] [id number] [address] [place] [address] 16 May, 2019 [facility] [address] [facility] [id number] [address] [place] [address] 12 May, 2019 Type 2 diabetes mellitus wit h other specified complication E11.69 ; Other cirrhosis of liver K74.69 ; Chronic kidney disease, stage 3 (moderate) N18.3 ; Chronic diastolic (congestive) heart failure I50.32 ; Paroxysmal atrial fibrillation I48.0 ; Morbid (severe) obesity due to excess calories E66.01 and Hyperlipidemia, unspecified hyperlipidemia type E78.5 [facility] [address] [facility] [id number] [address] [place] [address] May, [address] [id number] [address] Apr, [facility] [address] [facility] [id number] [address] [place] [address] Mar, [facility] [address] [facility] [id number] [address] [place] [phone] Mar, [facility] [address] [facility] [id number] [address] [place] [address] Mar, [facility] [address] [facility] [id number] [address] [place] [address] Mar, [facility] [address] [facility] [id number] [address] [place] [address] Mar, [address] [id number], [place] [address] Mar, [address] [id number], [place] [address] Mar, [facility] [address] [facility] [id number] [address] [place] [address] Mar, [facility] [address] [id number] [address] [place] [address] Mar, [facility] [address] [id number] [address] [place] [phone] Mar, [facility] [address] [id number] [address] [place] [address] Feb, [facility] [address] [id number] [address] [place] [address] Feb, Coronary artery disease invo lving [place] coronary artery of [place] heart without angina pectoris I25.10 ; Chronic kidney disease, stage 3 (moderate) N18.3 and Morbid (severe) obesity due to excess calories E66.01 [facility] [address] [id number] [address] [place] [address] Feb, [facility] [address] [id number] [address] [place] [address] Feb, [facility] [address] [id number] [address] [place] [address] Feb, [facility] [address] [id number] [address] [place] [address] Jan, [facility] [address] [id number] [address] [place] [address] Jan, [facility] [address] [id number] [address] [place] [address] Jan, [facility] [address] [id number] [address] [place] [address] Jan, [facility] [address] [id number] [address] [place] [address] Jan, [facility] [address] [id number] [address] [place] [address] Jan, [facility] [address] [id number] [address] [place] [address] Dec, [facility] SOUTHEfrem LORD [address] [id number] [place] [address] Dec, [facility] [address] [id number] [address] [place] [address] Nov, [facility] [address] [id number] [address] [place] [address] Nov, [facility] [address] [id number] [address] [place] [address] Nov, [facility] [address] [id number] [address] [place] [address] Nov, [facility] CHRISTINAO LORD [address] [id number] [place] [address] Oct, [facility] [address] [id number] [address] [place] [address] Oct, [facility] CHRISTIANO LORD [address] [id number] [place] [address] Sep, [facility] [address] [id number] [address] [place] [address] Sep, [facility] [address] [id number] [address] [place] [address] Aug, Type 2 diabetes mellitus wit h unspecified complications E11.8 ; correction 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 and Obesity (BMI 30-39.9) E66.9 [facility] CHRISTIANO LORD [address] [id number] [place] [address] Aug, Type 2 diabetes mellitus wit hout complications E11.9 [facility] CHRISTIANO LORD [address] 340[address] [id number] [place] [address] Aug, Type 2 diabetes mellitus wit hout complications E11.9 [facility] [address] [id number] [address] [place] [address] Aug, [facility] CHRISTIANO [address] [id number] [place] [address] July, 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 and Type 2 diabetes mellitus with unspecified complications E11.8 [facility] SOUT[facility]frem LORD [facility] [address] [facility] 340B [id number] [place] [address] July, Screening mammogram, encount er for Z12.31 [facility] [address] [facility] [id number] [address] [place] [address] July, [place] [address] [facility] [id number] [address] [place] [address] July, Paroxysmal atrial fibrillati on I48.0 and Coronary artery disease involving [place] coronary artery of [place] heart without angina pectoris I25.10 [place] [address] [facility] [id number] [address] [place] [address] Jun, [place] [address] [facility] [id number] [address] [place] [address] Jun, [facility] [address] [facility] [id number] [address] [place] [address] May, [place] [address] [facility] [id number] [address] [place] [address] May, Type 2 diabetes mellitus wit h unspecified complications E11.8 ; correction 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 ; Leg cramps R25.2 ; Essential hypertension I10 and Routine adult health maintenance Z00.00 [place] [address] [facility] [id number] [address] [place] [address] Apr, [facility] [address] [facility] [id number] [address] [place] [address] Apr, [facility] [address] [facility] [id number] [address] [place] [address] Mar, Type 2 diabetes mellitus wit hout complications E11.9 [facility] [address] [facility] [id number] [address] [place] [address] Mar, Type 2 diabetes mellitus wit hout complications E11.9 [facility] [address] [id number] [address] [place] [address] Mar, Type 2 diabetes mellitus wit hout complications E11.9 [facility] [address] [facility] [id number] [address] [place] [address] 14 Feb, 2018 Essential (primary) hyperten sofie I10 [facility] [address] [facility] [id number] [address] [place] [address] Feb, [facility] [address] [facility] [id number] [address] [place] [address] Jan, Type 2 diabetes mellitus wit hout complications E11.9 [facility] [address] [facility] [id number] [address] [place] [address] 30 Dec, 2017 [facility] [address] [facility] [id number] [address] [place] [address] Dec, Type 2 diabetes mellitus wit h diabetic neuropathy, unspecified E11.40 ; correction 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 and Chronic kidney disease, unspecified CKD stage N18.9 [facility] [address] [facility] [id number] [address] [place] [address] Dec, Type 2 diabetes mellitus wit hout complications E11.9 [facility] [address] [facility] [id number] [address] [place] [address] Dec, [facility] [address] [facility] [id number] [address] [place] [address] Dec, Type 2 diabetes mellitus wit hout complications E11.9 [facility] [address] [facility] [id number] [address] [place] [address] Dec, [facility] [address] [facility] [id number] [address] [place] [address] Oct, [facility] [address] [facility] [id number] [address] [place] [address] Sep, [facility] [address] [facility] [id number] [address] [place] [address] Aug, [facility] [address] [facility] [id number] [address] [place] [address] Aug, Exposure to hepatitis C Z20. 5 and Routine adult health maintenance Z00.00 [facility] [address] [facility] [id number] [address] [place] [address] 11 Aug, 2017 Exposure to hepatitis C Z20. 5 [facility] [address] [facility] [id number] [address] [place] [address] 11 Aug, 2017 Medicare annual wellness vis it, initial Z00.00 ; Coronary artery disease involving [place] coronary artery of [place] heart without angina pectoris I25.10 ; Hyperlipidemia, unspecified hyperlipidemia type E78.5 ; Essential hypertension I10 ; GERD (gastroesophageal reflux disease) K21.9 ; Routine adult health maintenance Z00.00 ; Encounter for immunization Z23 ; Type 2 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, unspecified E11.40 and correction 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 [place] [address] [facility] [id number] [address] [place] [address] 30 Jul, 2017 Type 2 diabetes mellitus wit hout complications E11.9 and Type 2 diabetes mellitus without complications E11.9 [place] [address] [facility] [id number] [address] [place] [address] 08 Jul, 2017 [place] [address] [facility] [id number] [address] [place] [address] July, [facility] [address] [facility] [id number] [address] [place] [address] Mar, Type 2 diabetes mellitus wit hout complications E11.9 [place] [id number] [facility] [id number] [address] [place] [address] Mar, [place] [address] [facility] [id number] [address] [place] [address] 14 Feb, 2017 Type 2 diabetes mellitus wit hout complications E11.9 [place] [address] [facility] [id number] [address] [place] [address] Jan, Type 2 diabetes mellitus wit hout complications E11.9 [facility] [address] [id number] [address] [place] [address] Jan, Type 2 diabetes mellitus wit hout complications E11.9 [facility] [address] [id number] [address] [place] [address] Nov, [facility] [address] [facility] [id number] [address] [place] [address] Oct, Type 2 diabetes mellitus wit hout complications E11.9 [facility] [address] [id number] [address] [place] [address] Oct, Type 2 diabetes mellitus wit hout complications E11.9 ; Essential hypertension I10 and Neck pain M54.2 [facility] [address] [facility] [id number] [address] [place] [address] Sep, [facility] [address] [facility] [id number] [address] [place] [address] Aug, Type 2 diabetes mellitus wit hout complications E11.9 [facility] [address] [facility] [id number] [address] [place] [address] Jun, Type 2 diabetes mellitus wit hout complications E11.9 ; Neck pain M54.2 and Essential hypertension I10 [facility] [address] [facility] [id number] [address] [place] [address] 17 Jun, 2016 [facility] [address] [facility] [id number] [address] [place] [address] 14 Jun, 2016 [facility] [address] [facility] [id number] [address] [place] [address] Jun, GERD (gastroesophageal reflu x disease) K21.9 and Type 2 diabetes mellitus without complications E11.9 [facility] [address] [facility] [id number] [address] [place] [address] Mar, Paresthesias in right hand R 20.2 [facility] [address] [facility] [id number] [address] [place] [address] Feb, Type 2 diabetes mellitus wit hout complications E11.9 [facility] [address] [id number] [address] [place] [id number] Feb, Encounter for dental examina tion Z01.20 [facility] [address] [id number] [address] [place] [address] Feb, Type 2 diabetes mellitus wit hout complications E11.9 and Neck pain M54.2 [facility] [address] [id number] [address] [place] [address] Feb, Type 2 diabetes mellitus wit hout complications E11.9 [facility] [address] [id number] [address] [place] [id number] Jan, Dental examination Z01.20 [facility] [address] [id number] [address] [place] [address] Jan, [facility] [address] [id number] [address] [place] [address] Jan, [facility] [address] [id number] [address] [place] [id number] Dec, Dental caries K02.9 [facility] [address] [id number] [address] [place] [address] Nov, [facility] [address] [id number] [address] [place] [address] Nov, [facility] [address] [id number] [address] [place] [address] Oct, Type 2 diabetes mellitus wit hout complications E11.9 ; Neck pain M54.2 and Essential hypertension I10 [facility] [address] [id number] [address] [place] [address] Oct, [facility] [address] [id number] [address] [place] [id number] Oct, Dental examination Z01.20 [facility] [address] [id number] [address] [place] [address] Sep, [facility] [address] [facility] [id number] [address] [place] [address] Sep, [facility] [address] [facility] [id number] [address] [place] [address] Aug, Essential (primary) hyperten sofie I10 [facility] [address] [facility] [id number] [address] [place] [address] Aug, [facility] [address] [facility] [id number] [address] [place] [address] Aug, [facility] [address] [facility] [id number] [address] [place] [address] July, Essential (primary) hyperten sofie I10 [facility] [address] [facility] [id number] [address] [place] [address] July, Essential (primary) hyperten sofie I10 and Type 2 diabetes mellitus without complications E11.9 [facility] [address] [facility] [id number] [address] [place] [address] July, [facility] [address] [facility] [id number] [address] [place] [address] Jun, GERD (gastroesophageal reflu x disease) K21.9 [facility] [address] [facility] [id number] [address] [place] [address] Jun, GERD (gastroesophageal reflu x disease) K21.9 [facility] [address] [facility] [id number] [address] [place] [address] Jun, [facility] [address] [facility] [id number] [address] [place] [address] Jun, Neuropathy G62.9 [facility] [address] [facility] [id number] [address] [place] [address] May, Essential (primary) hyperten sofie I10 [facility] [address] [facility] [id number] [address] [place] [address] May, Bronchitis J40 [facility] [address] [facility] [id number] [address] [place] [address] 15 May, 2015 Type 2 diabetes mellitus wit hout complications E11.9 and Essential (primary) hypertension I10 [facility] [address] [facility] [id number] [address] [place] [address] May, [facility] [address] [place] [id number] [place] [address] May, GERD (gastroesophageal reflu x disease) K21.9 [facility] [address] [place] [id number] [address] [place] [address] 25 Apr, 2015 Other and unspecified hyperl ipidemia 272.4 ; Unspecified essential hypertension 401.9 ; Type 2 diabetes mellitus without complications E11.9 ; Neck pain M54.2 and Paresthesias in right hand R20.2 [facility] [address] [place] [id number] [address] [place] [address] Apr, [facility] [address] [place] [id number] [address] [place] [address] Apr, Neuropathy G62.9 [facility] [address] [place] [id number] [address] [place] [phone] Mar, [facility] [address] [place] [id number] [address] [place] [address] Feb, [facility] [address] [id number] [address] [place] [id number] Jan, [facility] [address] [id number] [address] [place] [id number] Dec, [facility] [id number] [place] [id number] Dec, Type 2 diabetes mellitus wit hout complications E11.9 ; Encounter for immunization Z23 and Neck pain M54.2 [facility] [address] [id number] [address] [place] [phone] Dec, [facility] [address] [id number] [address] [place] [phone] Nov, [facility] [address] [id number] [address] [place] [id number] Nov, [facility] [address] [id number] [address] [place] [id number] Oct, [facility] [address] [id number] [address] [place] [id number] Oct, [facility] [address] [id number] [address] [place] [phone] Sep, [facility] [address] [id number] [address] [place] [id number] Sep, Coronary atherosclerosis of unspecified type of vessel, [place] or graft 414.00 ; Diabetes mellitus without mention of complication, type II or unspecified type, not stated as uncontrolled 250.00 ; Hyperlipidemia 272.4 and HTN (hypertension) 401.9 [facility] [address] [id number] [address] [place] [phone] Aug, [facility] [address] [id number] [address] [place] [phone] July, [facility] [address] [facility] [id number] [address] [place] [phone] Jun, [facility] [address] [id number] [address] [place] [phone] Jun, [facility] [address] [id number] [address] [place] [phone] May, [facility] [address] [id number] [address] [place] [phone] May, [facility] [address] [id number] [address] [place] [phone] May, [facility] [address] [id number] [address] [place] [phone] May, [facility] [address] [id number] [address] [place] [address], [place] [id number] Apr, [facility] [address] [id number] [address] [place] [address], [place] [id number] Apr, [facility] [address] [id number] [address] [place] [address], [place] [id number] Apr, [facility] [address] [id number] [address] [place] [address], [place] [id number] Apr, [facility] [address] [id number] [address] [place], [place] [address], [place] [id number] Apr, [facility] [address] [id number] [address] [place] [address], [place] [id number] Apr, [facility] [address] [id number] [address] [place] [address], [place] [id number] Apr, [facility] [address] [id number] [address] [place] [address], [place] [id number] Apr, [facility] [address] [id number] [address] [place] [address], [place] [id number] Mar, [facility] [address] [id number] [address] [place] [address], [place] [address] Mar, [facility] [address] [id number] [address] [place] [address], [place] [address] Mar, [facility] [address] [id number] [address] [place] [id number] Mar, [facility] [address] [id number] [address] [place] [address], [place] [id number] Mar, [facility] [address] [id number] [address] [place] [address], [place] [id number] Mar, [facility] [address] [id number] [address] [place] [address], [place] [id number] Mar, [facility] [address] [id number] [address] [place] [address], [place] [id number] Mar, [facility] [address] [id number] [address] [place] [address], [place] [id number] Feb, [facility] [address] [id number] [address] [place] [address], [place] [id number] Feb, [facility] [address] [id number] [address] [place] [address], [place] [id number] Feb, [facility] [address] [id number] [address] [place] [address], [place] [id number] Feb, [facility] [address] [id number] [address] [place] [address], [place] [id number] Feb, [facility] [address] [id number] [address] [place] [address], [place] [id number] Feb, [facility] [address] [id number] [address] [place] [address], [place] [id number] Feb, [facility] [address] [id number] [address] [place] [address], [place] [id number] Feb, [facility] [address] [id number] [address] [place] [address], [place] [id number] Feb, [facility] [address] [id number] [address] [place] [address], [place] [id number] Feb, [facility] [address] [id number] [address] [place] [address], [place] [address] Jan, [facility] [address] [id number] [address] [place] [address], [place] [id number] Jan, [facility] [address] [id number] [address] [place] [address], [place] [address] Dec, [facility] [address] [id number] [address] [place] [address], [place] [id number] Dec, [facility] [address] [id number] [address] [place] [address], [place] [id number] Dec, [facility] [address] [id number] [address] [place] [address], [place] [address] Dec, [facility] [address] [id number] [address] [place] [address], [place] [address] Nov, [facility] [address] [id number] [address] [place] [address], [place] [id number] Nov, [facility] [address] [id number] [address] [place] [address], [place] [id number] Nov, [facility] [address] [id number] [address] [place] [address], [place] [id number] Nov, [facility] [address] [id number] [address] [place] [address], [place] [address] Oct, [facility] [address] [id number] [address] [place] [address], [place] [id number] Oct, [facility] [address] [id number] [address] [place] [address], [place] [id number] Oct, [facility] [address] [id number] [address] [place] [address], [place] [id number] Oct, [facility] [address] [id number] [address] [place] [address], [place] [address] Oct, [facility] [address] [id number] [address] [place] [address], [place] [address] Sep, [facility] [address] [id number] [address] [place] [address], [place] [id number] Sep, [facility] [address] [id number] [address] [place] [address], [place] [id number] Sep, [facility] [address] [id number] [address] [place] [address], [place] [id number] Sep, [facility] [address] [id number] [address] [place] [address], [place] [address] Sep, [facility] [address] [id number] [address] [place] [address], [place] [id number] Sep, [facility] [address] [id number] [address] [place] [address], [place] [address] Aug, [facility] [address] [id number] [address] [place] [address], [place] [address] Aug, [facility] [address] [id number] [address] [place] [address], [place] [address] Aug, [facility] [address] [id number] [address] [place] [address], [place] [address] Aug, [facility] [address] [id number] [address] [place] [address], [place] [address] Aug, [facility] [address] [id number] [address] [place] [address], [place] [id number] Aug, [facility] [address] [id number] [address] [place] [address], [place] [address] July, [facility] [address] [id number] [address] [place] [address], [place] [address] July, [facility] [address] [id number] [address] [place] [address], [place] [address] Jun, [facility] [address] [id number] [address] [place] [address], [place] [address] Jun, [facility] [address] [id number] [address] [place] [address], [place] [address] May, [facility] [address] [id number] [address] [place] [address], [place] [address] May, [facility] [address] [id number] [address] [place] [address], [place] [address] May, [facility] [address] [id number] [address] [place] [address], [place] [address] May, [facility] [address] [id number] [address] [place] [address], [place] [address] Apr, [facility] [address] [id number] [address] [place] [address], [place] [id number] 10 Apr, 2013 [facility] [address] [id number] [address] [place] [address], [place] [address] Apr, 2013 [facility] [address] [id number] [address] [place] [address], [place] [address] Apr, 2013 [facility] [address] [id number] [address] [place] [address], [place] [address] Apr, 2013 [facility] [address] [id number] [address] [place] [address], [place] [id number] Apr, 2013 [facility] [address] [id number] [address] [place] [address], [place] [address] Feb, [facility] [address] [id number] [address] [place] [address], [place] [id number] Feb, [facility] [address] [id number] [address] [place] [address], [place] [id number] Feb, [facility] [address] [id number] [address] [place] [address], [place] [id number] Feb, [facility] [address] [id number] [address] [place] [address], [place] [id number] Jan, [facility] [address] [id number] [address] [place] [address], [place] [address] Jan, [facility] [address] [id number] [address] [place] [address], [place] [address] Dec, [facility] [address] [id number] [address] [place] [address], [place] [address] Dec, [facility] [address] [id number] [address] [place] [address], [place] [address] Dec, [facility] [address] [id number] [address] [place] [address], [place] [id number] 14 Dec, 2012 [facility] [address] [id number] [address] [place] [address], [place] [address] Oct, [facility] [address] [id number] [facility] [id number] Oct, [facility] [address] [id number] [place] [id number] Oct, [facility] [address] [id number] [address] [place] [address], [place] [id number] Oct, [facility] [address] [id number] [address] [place] [address], [place] [id number] Sep, [facility] [address] [id number] [address] [place] [address], [place] [address] Sep, [facility] [address] [id number] [address] [place] [id number] Aug, [facility] [address] [id number] [address] [place] [address], [place] [id number] Aug, [facility] [address] [id number] [address] [place] [id number] Aug, [facility] [address] [id number] [address] [place] [id number] Aug, [facility] [address] [id number] [address] [place] [id number] July, [facility] [address] [id number] [address] [place] [id number] Jun, [facility] [address] [id number] [address] [place] [id number] May, [facility] [address] [id number] [address] [place] [address] May, [facility] [address] [id number] [address] [place] [id number] May, [facility] [address] [id number] [address] [place] [address] May, [facility] [address] [id number] [address] [place] [address], [place] [id number] 05 May, 2012 [facility] [address] [id number] [address] [place] [address], [place] [id number] Apr, [facility] [address] [id number] [address] [place] [address], [place] [id number] 19 Apr, 2012 [facility] [address] [id number] [address] [place] [address], [place] [id number] 07 Apr, 2012 [facility] [address] [id number] [address] [place] [address], [place] [id number] 04 Apr, 2012 [facility] [address] [id number] [address] [place] [address], [place] [id number] Mar, [facility] [address] [id number] [address] [place] [address], [place] [address] Mar, [facility] [address] [id number] [address] [place] [address], [place] [id number] Mar, [facility] [address] [id number] [address] [place] [address], [place] [id number] Mar, [facility] [address] [id number] [address] [place] [address], [place] [id number] 16 Jan, 2012 [facility] [address] [id number] [address] [place] [address], [place] [id number] 16 Jan, 2012 [facility] [address] [id number] [address] [place] [address], [place] [id number] 15 Jan, 2012 [facility] [address] [id number] [address] [place] [address], [place] [id number] 15 Jan, 2012 [facility] [address] [id number] [address] [place] [address], [place] [id number] 07 Jan, 2012 [facility] [address] [id number] [address] [place] [address], [place] [id number] 07 Jan, 2012 [facility] [address] [id number] [address] [place] [address], [place] [id number] Jan, [facility] [address] [id number] [address] [place] [id number] Jan, [facility] [address] [id number] [address] [place] [id number] Jan, [facility] [address] [id number] [address] [place] [id number] Jan, [facility] [address] [id number] [address] [place] [id number] Dec, [facility] [address] [id number] [address] [place] [id number] Dec, [facility] [address] [id number] [address] [place] [id number] Dec, [facility] [address] [id number] [address] [place] [id number] Nov, [facility] [address] [id number] [address] [place] [id number] Nov, [facility] [address] [id number] [address] [place] [id number] Nov, [facility] [address] [id number] [address] [place] [id number] Nov, [facility] [address] [id number] [address] [place] [id number] Oct, [facility] [address] [id number] [address] [place] [id number] Oct, IMMUNIZATIONS No Known Immunizations SOCIAL HISTORY [...] back surgery; discectomy Surgical History Stents 2014 Surgical History temp pace maker- removed now and has a m onitor 07/2018 Surgical History colonoscopy and egd 01/2019 Hospitalization History surgeries Hospitalization History [facility] 06/2018 Hospitalization History [facility]- 07/2018 Hospital[facility] - heart attack and rehab -03/02/2019
--- OUTSIDE RECORDS SUMMARY | 2019-07-20 17:11 | XMS REPORT ---
Author Author Sarah AMADO Organization [facility], [place] Address [address] [place] [address] Care Team Providers Care Supervisor Blasting Name Role Phone GEE AMADO Unavailable PROBLEMS Type Condition ICD9-CM Code WST60-JI Code Onset Dates Condition S tatus SNOMED Code Problem Hyperlipidemia, unspecified hyperlipidemia type E7 8.5 Active 46240740 Problem Paresthesias in right hand R20.2 Act chidi 895832400 Problem Coronary artery disease invo lving council coronary artery of council heart without angina pectoris I25.10 Active 1641 131591321 Problem Essential hypertension I10 Active 44063892 Problem Neck pain M54.2 Active 56003377 Problem Type 2 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, uns pecified E11.40 Active 02664032 Problem Chronic kidney disease, unspecified CKD stage N18. 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 640222910 Problem Chronic diastolic (congestive) heart failure I50.3 2 Active 382027883 Problem GERD (gastroesophageal reflux disease) K21.9 Active 369731599 Problem Obesity (BMI 30-39.9) E66.9 Active 144813489 Problem Chronic kidney disease, stage 3 (moderate) N18.3 Active 483112114 Problem Morbid (severe) obesity due to excess calories E66 .01 Active 252579349 Problem Type 2 diabetes mellitus with other specified complication E11.69 Active 63942412 ALLERGIES No Information ENCOUNTERS Encounter Location Date Diagnosis [facility], [place] [address] [facility] [id number] [address] [place] [phone] 14 Jun, 2019 [facility], [place] [address] [facility] [id number] [address] [place] [phone] Jun, [facility], [place] [address] [facility] [id number] [address] [place] [phone] 31 May, 2019 [facility] [place] [address] [facility] [id number] [address] [place] [phone] 23 May, 2019 Other cirrhosis of liver K74 .69 and Type 2 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, unspecified whether r d internship insulin use E11.40 [facility], [place] [address] [facility] [id number] [address] [place] [phone] 16 May, 2019 [facility], [place] [address] [facility] [id number] [address] [place] [phone] 12 May, 2019 Type 2 diabetes mellitus wit h other specified complication E11.69 ; Other cirrhosis of liver K74.69 ; Chronic kidney disease, stage 3 (moderate) N18.3 ; Chronic diastolic (congestive) heart failure I50.32 ; Paroxysmal atrial fibrillation I48.0 ; Morbid (severe) obesity due to excess calories E66.01 and Hyperlipidemia, unspecified hyperlipidemia type E78.5 [facility] [place] [address] [facility] [id number] [address] [place] [phone] 11 May, [address] [id number] [address] Apr, [facility], [place] [address] [facility] [id number] [address] [place] [phone] Mar, [facility], [place] [address] [facility] [id number] [address] [place] [phone] Mar, [facility], [place] [address] [facility] [id number] [address] [place] [phone] Mar, [facility], [place] [address] [facility] [id number] [address] [place] [phone] Mar, [facility], [place] [address] [facility] [id number] [address] [place] [phone] Mar, [address] [id number] [place] [address] Mar, [address] 340[id number] [place] [phone] Mar, [facility] [place] [address] [id number] [address] [place] [phone] Mar, [facility] [place] [address] [id number] [address] [place] [phone] Mar, [facility] [place] [address] [id number] [address] [place] [phone] Mar, [facility] [place] [address] [id number] [address] [place] [phone] Feb, [facility], [place] [address] [id number] [address] [place] [phone] Feb, Coronary artery disease invo lving council coronary artery of council heart without angina pectoris I25.10 ; Chronic kidney disease, stage 3 (moderate) N18.3 and Morbid (severe) obesity due to excess calories E66.01 [facility] [place] [address] [id number] [address] [place] [phone] Feb, [facility] [place] [address] [id number] [address] [place] [phone] Feb, [facility] [place] [address] [id number] [address] [place] [phone] Feb, [facility], [place] [address] [facility] [id number] [address] [place] [phone] Jan, [facility] [place] [address] [id number] [address] [place] [phone] Jan, [facility] [place] [address] [id number] [address] [place] [phone] Jan, [facility] [place] [address] [id number] [address] [place] [phone] Jan, [facility] [place] [address] [id number] [address] [place] [phone] Jan, [facility] [place] [address] [id number] [address] [place] [phone] Jan, [facility], [place] [address] [id number] [address] [place] [phone] Dec, [facility] CHRISTIANO LORD [address] [id number] [place] [address] Dec, [facility], [place] [address] [id number] [address] [place] [phone] Nov, [facility] [place] [address] [id number] [address] [place] [phone] Nov, [facility] [place] [address] [id number] [address] [place] [phone] Nov, [facility] [place] [address] [id number] [address] [place] [phone] Nov, [facility] CHRISTIANO LORD [address] 340[address] [id number] [place] [address] Oct, [facility] [place] [address] [id number] [address] [place] [phone] Oct, [facility] CHRISTIANO LORD [address] 340B [id number] [place] [address] Sep, [facility] [place] [address] [id number] [address] [place] [phone] Sep, [facility], [place] [address] [facility] [id number] [address] [place] [phone] Aug, Type 2 diabetes mellitus wit h unspecified complications E11.8 ; shelter 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 and Obesity (BMI 30-39.9) E66.9 [facility] CHRISTIANO LORD [address] 340B [id number] [place] [address] Aug, Type 2 diabetes mellitus wit hout complications E11.9 [facility] CHRISTIANO [address] 340[address] [id number] [place] [address] Aug, Type 2 diabetes mellitus wit hout complications E11.9 [facility], [place] [address] [id number] [address] [place] [phone] Aug, [address] 340[address] [id number] [place] [address] July, 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 and Type 2 diabetes mellitus with unspecified complications E11.8 [facility] CHRISTIANO [address] 340[address] [id number] [place] [address] July, Screening mammogram, encount er for Z12.31 [facility], [place] [address] [facility] [id number] [address] [place] [phone] July, [facility], [place] [address] [facility] [id number] [address] [place] [address] July, Paroxysmal atrial fibrillati on I48.0 and Coronary artery disease involving council coronary artery of council heart without angina pectoris I25.10 [facility], [place] [address] [facility] [id number] [address] [place] [phone] Jun, [facility], [place] [address] [facility] [id number] [address] [place] [phone] Jun, [facility], [place] [address] [facility] [id number] [address] [place] [phone] May, [facility], [place] [address] [facility] [id number] [address] [place] [phone] May, Type 2 diabetes mellitus wit h unspecified complications E11.8 ; shelter 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 ; Leg cramps R25.2 ; Essential hypertension I10 and Routine adult health maintenance Z00.00 [facility], [place] [address] [facility] [id number] [address] [place] [phone] Apr, [facility], [place] [address] [facility] [id number] [address] [place] [phone] Apr, [facility], [place] [address] [facility] [id number] [address] [place] [phone] Mar, Type 2 diabetes mellitus wit hout complications E11.9 [facility], [place] [address] [facility] [id number] [address] [place] [phone] Mar, Type 2 diabetes mellitus wit hout complications E11.9 [facility], [place] [address] [facility] [id number] [address] [place] [phone] Mar, Type 2 diabetes mellitus wit hout complications E11.9 [facility], [place] [address] [facility] [id number] [address] [place] [phone] 14 Feb, 2018 Essential (primary) hyperten sofie I10 [facility], [place] [address] [facility] [id number] [address] [place] [phone] Feb, [facility], [place] [address] [facility] [id number] [address] [place] [phone] Jan, Type 2 diabetes mellitus wit hout complications E11.9 [facility], [place] [address] [facility] [id number] [address] [place] [phone] 30 Dec, 2017 [facility], [place] [address] [facility] [id number] [address] [place] [phone] Dec, Type 2 diabetes mellitus wit h diabetic neuropathy, unspecified E11.40 ; 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 and Chronic kidney disease, unspecified CKD stage N18.9 [facility], [place] [address] [facility] [id number] [address] [place] [phone] 15 Dec, 2017 Type 2 diabetes mellitus wit hout complications E11.9 [facility], [place] [address] [facility] [id number] [address] [place] [phone] 10 Dec, 2017 [facility], [place] [address] [facility] [id number] [address] [place] [phone] 09 Dec, 2017 Type 2 diabetes mellitus wit hout complications E11.9 [facility], [place] [address] [facility] [id number] [address] [place] [phone] 08 Dec, 2017 [facility], [place] [address] [facility] [id number] [address] [place] [phone] Oct, [facility], [place] [address] [facility] [id number] [address] [place] [phone] Sep, [facility], [place] [address] [facility] [id number] [address] [place] [phone] Aug, [facility], [place] [address] [facility] [id number] [address] [place] [phone] Aug, Exposure to hepatitis C Z20. 5 and Routine adult health maintenance Z00.00 [facility], [place] [address] [facility] [id number] [address] [place] [phone] Aug, Exposure to hepatitis C Z20. 5 [facility], [place] [address] [facility] [id number] [address] [place] [phone] 11 Aug, 2017 Medicare annual wellness vis it, initial Z00.00 ; Coronary artery disease involving council coronary artery of council heart without angina pectoris I25.10 ; Hyperlipidemia, unspecified hyperlipidemia type E78.5 ; Essential hypertension I10 ; GERD (gastroesophageal reflux disease) K21.9 ; Routine adult health maintenance Z00.00 ; Encounter for immunization Z23 ; Type 2 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, unspecified E11.40 and 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 [facility], [place] [address] [facility] [id number] [address] [place] [phone] July, Type 2 diabetes mellitus wit hout complications E11.9 and Type 2 diabetes mellitus without complications E11.9 [facility], [place] [address] [facility] [id number] [address] [place] [phone] July, [facility], [place] [address] [facility] [id number] [address] [place] [phone] July, [facility], [place] [address] [facility] [id number] [address] [place] [address] Mar, Type 2 diabetes mellitus wit hout complications E11.9 [facility], [place] [address] [facility] [id number] [address] [place] [phone] Mar, [facility], [place] [address] [facility] [id number] [address] [place] [phone] Feb, Type 2 diabetes mellitus wit hout complications E11.9 [facility], [place] [address] [facility] [id number] [address] [place] [phone] Jan, Type 2 diabetes mellitus wit hout complications E11.9 [facility] [place] [address] [facility] [id number] [address] [place] [address] Jan, Type 2 diabetes mellitus wit hout complications E11.9 [facility] [place] [address] [facility] [id number] [address] [place] [phone] Nov, [facility] [place] [address] [facility] [id number] [address] [place] [phone] Oct, Type 2 diabetes mellitus wit hout complications E11.9 [facility], [place] [address] [facility] [id number] [address] [place] [phone] Oct, Type 2 diabetes mellitus wit hout complications E11.9 ; Essential hypertension I10 and Neck pain M54.2 [place] [address] [address] [facility] [facility] [id number] [address] [place] [phone] Sep, [facility], [place] [address] [facility] [id number] [address] [place] [phone] Aug, Type 2 diabetes mellitus wit hout complications E11.9 [facility], [place] [address] [facility] [id number] [address] [place] [phone] Jun, Type 2 diabetes mellitus wit hout complications E11.9 ; Neck pain M54.2 and Essential hypertension I10 [facility], [place] [address] [facility] [id number] [address] [place] [phone] Jun, [facility], [place] [address] [facility] [id number] [address] [place] [phone] Jun, [facility], [place] [address] [place] [id number] [address] [place] [phone] Jun, GERD (gastroesophageal reflu x disease) K21.9 and Type 2 diabetes mellitus without complications E11.9 [facility], [place] [address] [facility] [id number] [address] [place] [phone] Mar, Paresthesias in right hand R 20.2 [facility] [place] [address] [id number] [address] [place] [phone] Feb, Type 2 diabetes mellitus wit hout complications E11.9 [facility] [address] [id number] [address] [place] [id number] Feb, Encounter for dental examina tion Z01.20 [facility] [place] [address] [id number] [address] [place] [phone] Feb, Type 2 diabetes mellitus wit hout complications E11.9 and Neck pain M54.2 [facility] [place] [address] [id number] [address] [place] [phone] Feb, Type 2 diabetes mellitus wit hout complications E11.9 [facility] [address] [id number] [address] [place] [id number] Jan, Dental examination Z01.20 [facility] [place] [address] [id number] [address] [place] [phone] Jan, [facility] [place] [address] [id number] [address] [place] [phone] Jan, [facility] [address] [id number] [address] [place] [address] [id number] Dec, Dental caries K02.9 [facility] [place] [address] [id number] [address] [place] [phone] Nov, [facility] [place] [address] [id number] [address] [place] [phone] Nov, [facility] [place] [address] [id number] [address] [place] [phone] Oct, Type 2 diabetes mellitus wit hout complications E11.9 ; Neck pain M54.2 and Essential hypertension I10 [facility] [place] [address] [id number] [address] [place] [phone] Oct, [facility] [address] [id number] [address] [place] [id number] Oct, Dental examination Z01.20 [facility] [place] [address] [id number] [address] [place] [phone] Sep, [facility] [place] [address] [id number] [address] [place] [phone] Sep, [facility] [place] [address] [facility] [id number] [address] [place] [phone] Aug, Essential (primary) hyperten sofie I10 [facility] [place] [address] [id number] [address] [place] [phone] Aug, [facility] [place] [address] [id number] [address] [place] [phone] Aug, [facility] [place] [address] [address] [facility] [id number] [address] [place] [phone] July, Essential (primary) hyperten sofie I10 [facility] [place] [address] [address] [facility] [id number] [address] [place] [phone] July, Essential (primary) hyperten sofie I10 and Type 2 diabetes mellitus without complications E11.9 [facility] [place] [address] [facility] [id number] [address] [place] [phone] July, [facility] [place] [address] [facility] [id number] [address] [place] [id number] Jun, GERD (gastroesophageal reflu x disease) K21.9 [facility] [place] [address] [facility] [id number] [address] [place] [phone] Jun, GERD (gastroesophageal reflu x disease) K21.9 [facility], [place] [address] [facility] [id number] [address] [place] [phone] Jun, [facility], [place] [address]MER[facility] [address]AM[address] [facility] [id number] [address] [place] [phone] Jun, Neuropathy G62.9 [facility], [place] [address] [facility] [id number] [address] [place] [phone] May, Essential (primary) hyperten sofie I10 [facility] [address] [facility] [id number] [address] [place] [id number] 23 May, 2015 Bronchitis J40 [facility], [place] [address] [facility] [id number] [address] [place] [phone] 15 May, 2015 Type 2 diabetes mellitus wit hout complications E11.9 and Essential (primary) hypertension I10 [facility], [place] [address] [id number] 10 May, 2015 [facility], [place] [address] [phone] 10 May, 2015 GERD (gastroesophageal reflu x disease) K21.9 [facility], [place] [address] [place] [id number] [place] [phone] 25 Apr, 2015 Other and unspecified hyperl ipidemia 272.4 ; Unspecified essential hypertension 401.9 ; Type 2 diabetes mellitus without complications E11.9 ; Neck pain M54.2 and Paresthesias in right hand R20.2 [facility], [place] [address] [place] [id number] [address] [place] [phone] 11 Apr, 2015 [facility], [place] [address] [id number] 10 Apr, 2015 Neuropathy G62.9 [facility], [place] [address] [place] [id number] [place] [phone] Mar, [facility], [place] [address] [place] [id number] [address] [place] [phone] Feb, [facility], [place] [address] [place] [id number] [address] [place] [phone] Jan, [facility] [place] [address] [address] Dec, [facility] [place] [address] [place] [id number] [address] [place] [address] Dec, Type 2 diabetes mellitus wit hout complications E11.9 ; Encounter for immunization Z23 and Neck pain M54.2 [place] [address] [id number] [address] [place] [address] Dec, [facility] [place] [address] [id number] [address] [place] [address] Nov, [facility] [place] [address] [id number] [address] [place] [address] Nov, [facility] [place] [address] [id number] [address] [place] [phone] Oct, [facility] [place] [address] [id number] [address] [place] [phone] Oct, [facility] [place] [address] [id number] [address] [place] [phone] Sep, [facility] [place] [address] [facility] [address]AM[address] [facility] [id number] [address] [place] [address] Sep, Coronary atherosclerosis of unspecified type of vessel, council or graft 414.00 ; Diabetes mellitus without mention of complication, type II or unspecified type, not stated as uncontrolled 250.00 ; Hyperlipidemia 272.4 and HTN (hypertension) 401.9 [facility] [place] [address] [id number] [address] [place] [phone] Aug, [facility] [place] [address] [facility] [id number] [address] [place] [phone] July, [facility] [place] [address] [facility] [id number] [address] [place] [phone] Jun, [facility] [place] [address] [id number] [address] [place] [phone] Jun, [facility] [place] [address] [id number] [address] [place] [phone] May, [facility] [place] [address] [id number] [address] [place] [phone] May, [facility] [place] [address] [facility] [id number] [address] [place] [phone] May, [facility] [address] [id number] [address] [place] [address], [place] [address] May, [facility] [address] [id number] [address] [place] [address], [place] [address] Apr, 2014 [facility] [address] [id number] [address] [place] [address], [place] [address] Apr, 2014 [facility] [address] [id number] [address] [place] [address], [place] [address] Apr, 2014 [facility] [address] [id number] [address] [place] [address], [place] [address] Apr, 2014 [facility] [address] [id number] [address] [place] [address], [place] [address] Apr, [facility] [address] [id number] [address] [place] [address], [place] [address] Apr, [facility] [address] [id number] [address] [place] [phone] Apr, [facility] [address] [id number] [address] [place] [address], [place] [address] Apr, [facility] [address] [id number] [address] [place] [phone] Mar, [facility] [address] [id number] [address] [place] [phone] Mar, [facility] [address] [id number] [address] [place] [phone] Mar, [facility] [address] [id number] [address] [place] [phone] Mar, [facility] [address] [id number] [address] [place] [phone] Mar, [facility] [address] [id number] [address] [place] [phone] Mar, [facility] [address] [id number] [address] [place] [phone] Mar, [facility] [address] [id number] [address] [place] [address], [place] [address] Mar, [facility] [address] [id number] [address] [place] [address], [place] [address] Feb, [facility] [address] [id number] [address] [place] [address], [place] [address] Feb, [facility] [address] [id number] [address] [place] [address], [place] [address] Feb, [facility] [address] [id number] [address] [place] [address], [place] [address] Feb, [facility] [address] [id number] [address] [place] [address], [place] [address] Feb, [facility] [address] [id number] [address] [place] [address], [place] [address] Feb, [facility] [address] [id number] [address] [place] [address], [place] [address] Feb, [facility] [address] [id number] [address] [place] [address], [place] [address] Feb, [facility] [address] [id number] [address] [place] [address], [place] [address] Feb, [facility] [address] [id number] [address] [place] [address], [place] [address] Feb, [facility] [address] [id number] [address] [place] [address], [place] [address] Jan, [facility] [address] [id number] [address] [place] [address], [place] [address] Jan, [facility] [address] [id number] [address] [place] [address], [place] [address] Dec, [facility] [address] [id number] [address] [place] [address], [place] [address] Dec, [facility] [address] [id number] [address] [place] [address], [place] [address] Dec, [facility] [address] [id number] [address] [place] [address], [place] [address] Dec, [facility] [address] [id number] [address] [place] [address], [place] [address] Nov, [facility] [address] [id number] [address] [place] [address], [place] [address] Nov, [facility] [address] [id number] [address] [place] [address], [place] [address] Nov, [facility] [address] [id number] [address] [place] [address], [place] [address] Nov, [facility] [address] [id number] [address] [place] [address], [place] [address] Oct, [facility] [address] [id number] [address] [place] [address], [place] [address] Oct, [facility] [address] [id number] [address] [place] [address], [place] [address] Oct, [facility] [address] [id number] [address] [place] [address], [place] [address] Oct, [facility] [address] [id number] [address] [place] [address], [place] [address] Oct, [facility] [address] [id number] [address] [place] [address], [place] [address] Sep, [facility] [address] [id number] [address] [place] [address], [place] [address] Sep, [facility] [address] [id number] [address] [place] [address], [place] [address] Sep, [facility] [address] [id number] [address] [place] [address], [place] [address] Sep, [facility] [address] [id number] [address] [place] [address], [place] [address] Sep, [facility] [address] [id number] [address] [place] [address], [place] [address] Sep, [facility] [address] [id number] [address] [place] [address], [place] [address] Aug, [facility] [address] [id number] [address] [place] [address], [place] [address] Aug, [facility] [address] [id number] [address] [place] [address], [place] [address] Aug, [facility] [address] [id number] [address] [place] [address], [place] [address] Aug, [facility] [address] [id number] [address] [place] [address], [place] [address] Aug, [facility] [address] [id number] [address] [place] [address], [place] [address] Aug, [facility] [address] [id number] [address] [place] [address], [place] [address] July, [facility] [address] [id number] [address] [place] [address], [place] [address] July, [facility] [address] [id number] [address] [place] [address], [place] [address] Jun, [facility] [address] [id number] [address] [place] [address], [place] [address] Jun, [facility] [address] [id number] [address] [place] [address], [place] [address] May, [facility] [address] [id number] [address] [place] [address], [place] [address] May, [facility] [address] [id number] [address] [place] [address], [place] [address] May, [facility] [address] [id number] [address] [place] [address], [place] [address] May, [facility] [address] [id number] [address] [place] [address], [place] [address] 10 Apr, 2013 [facility] [address] [id number] [address] [place] [address], [place] [address] 10 Apr, 2013 [facility] [address] [id number] [address] [place] [address], [place] [address] 10 Apr, 2013 [facility] [address] [id number] [address] [place] [address], [place] [address] 10 Apr, 2013 [facility] [address] [id number] [address] [place] [address], [place] [address] Apr, 2013 [facility] [address] [id number] [address] [place] [address], [place] [address] Apr, 2013 [facility] [address] [id number] [address] [place] [address], [place] [address] Feb, [facility] [address] [id number] [address] [place] [address], [place] [address] Feb, [facility] [address] [id number] [address] [place] [address], [place] [address] Feb, [facility] [address] [id number] [address] [place] [address], [place] [address] Feb, [facility] [address] [id number] [address] [place] [address], [place] [address] Jan, [facility] [address] [id number] [address] [place] [address], [place] [address] Jan, [facility] [address] [id number] [address] [place] [address], [place] [address] Dec, [facility] [address] [id number] [address] [place] [address], [place] [address] Dec, [facility] [address] [id number] [address] [place] [address], [place] [address] Dec, [facility] [address] [id number] [address] [place] [address], [place] [address] Dec, [facility] [address] [id number] [address] [place] [address], [place] [address] Oct, [facility] [address] [id number] [facility] [id number] Oct, [facility] [address] [id number] [place] [id number] Oct, [facility] [address] [id number] [address] [place] [address], [place] [address] Oct, [facility] [address] [id number] [address] [place] [address], [place] [address] Sep, [facility] [address] [id number] [address] [place] [address], [place] [address] Sep, [facility] [address] [id number] [address] [place] [address], [place] [address] Aug, [facility] [address] [id number] [address] [place] [address] Aug, [facility] [address] [id number] [address] [place] [address], [place] [address] Aug, [facility] [address] [id number] [address] [place] [address] Aug, [facility] [address] [id number] [address] [place] [address] July, [facility] [address] [id number] [address] [place] [address] Jun, [facility] [address] [id number] [address] [place] [address] May, [facility] [address] [id number] [address] [place] [address] May, [facility] [address] [id number] [address] [place] [address] May, [facility] [address] [id number] [address] [place] [address] 05 May, 2012 [facility] [address] [id number] [address] [place] [address], [place] [address] May, [facility] [address] [id number] [address] [place] [address], [place] [address] Apr, [facility] [address] [id number] [address] [place] [address], [place] [address] Apr, [facility] [address] [id number] [address] [place] [address], [place] [address] Apr, [facility] [address] [id number] [address] [place] [address], [place] [address] Apr, [facility] [address] [id number] [address] [place] [address], [place] [address] Mar, [facility] [address] [id number] [address] [place] [address], [place] [address] Mar, [facility] [address] [id number] [address] [place] [address], [place] [address] Mar, [facility] [address] [id number] [address] [place] [address], [place] [address] Mar, [facility] [address] [id number] [address] [place] [address], [place] [address] 16 Jan, 2012 [facility] [address] [id number] [address] [place] [address], [place] [address] 16 Jan, 2012 [facility] [address] [id number] [address] [place] [address], [place] [address] 15 Jan, 2012 [facility] [address] [id number] [address] [place] [address], [place] [address] 15 Jan, 2012 [facility] [address] [id number] [address] [place] [address], [place] [address] Jan, [facility] [address] [id number] [address] [place] [address], [place] [address] Jan, [facility] [place] [address] [id number] [address] [place] [phone] Jan, [facility] [place] [address] [id number] [address] [place] [address] Jan, [facility] [place] [address] [id number] [address] [place] [address] Jan, [facility] [place] [address] [id number] [address] [place] [address] Jan, [facility] [place] [address] [id number] [address] [place] [address] Dec, [facility] [place] [address] [id number] [address] [place] [address] Dec, [facility] [place] [address] [id number] [address] [place] [address] Dec, [facility] [place] [address] [id number] [address] [place] [address] Nov, [facility] [place] [address] [id number] [address] [place] [address] Nov, [facility] [place] [address] [id number] [address] [place] [address] Nov, [facility] [place] [address] [id number] [address] [place] [address] Nov, [facility] [place] [address] [id number] [address] [place] [phone] Oct, [facility] [place] [address] [id number] [address] [place] [id number] Oct, IMMUNIZATIONS No Known Immunizations SOCIAL HISTORY Never Assessed REASON FOR VISIT PLAN OF CARE VITAL SIGNS MEDICATIONS Unknown Medications RESULTS No Results PROCEDURES Procedure Date Ordered Result Body Site X-RAY EXAM OF NECK SPINE Mar 29, 2014 INSTRUCTIONS MEDICATIONS ADMINISTERED No Known Medications MEDICAL [...] egd 01/2019 Hospitalization History surgeries Hospitalization History [place] 06/2018 Hospitalization History [facility]2018 Hospital[facility] [place] [place] - heart attack and rehab -03[facility]02/2019
--- OUTSIDE RECORDS SUMMARY | 2019-07-20 17:11 | XMS REPORT ---
Author Author Sarah Garber Organization [facility] Address [address] [place] [address] Care Team Providers Care Electric Track Switch Maintainer Name Role Phone VAN Garber Unavailable PROBLEMS Type Condition ICD9-CM Code TRT41-MJ Code Onset Dates Condition S tatus SNOMED Code Problem Hyperlipidemia, unspecified hyperlipidemia type E7 8.5 Active 13606510 Problem Paresthesias in right hand R20.2 Act chidi 057958351 Problem Coronary artery disease invo lving mcgrath coronary artery of mcgrath heart without angina pectoris I25.10 Active 1641 932923929 Problem Essential hypertension I10 Active 02260071 Problem Neck pain M54.2 Active 67991955 Problem Type 2 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, uns pecified E11.40 Active 14601874 Problem Chronic kidney disease, unspecified CKD stage N18. 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 Active 872064246 Problem Chronic diastolic (congestive) heart failure I50.3 2 Active 770781867 Problem GERD (gastroesophageal reflux disease) K21.9 Active 064392557 Problem Obesity (BMI 30-39.9) E66.9 Active 219753900 Problem Chronic kidney disease, stage 3 (moderate) N18.3 Active 365300608 Problem Morbid (severe) obesity due to excess calories E66 .01 Active 461429792 Problem Type 2 diabetes mellitus with other specified complication E11.69 Active 02254536 ALLERGIES No Information ENCOUNTERS Encounter Location Date Diagnosis [facility] [address] [facility] [id number] [address] [place] [address] Jun, [facility] [address] [facility] [id number] [address] [place] [address] May, [facility] [address] [facility] [id number] [address] [place] [address] 23 May, 2019 Other cirrhosis of liver K74 .69 and Type 2 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, 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 [facility] [address] [facility] [id number] [address] [place] [address] 16 May, 2019 [facility] [address] [facility] [id number] [address] [place] [address] 12 May, 2019 Type 2 diabetes mellitus wit h other specified complication E11.69 ; Other cirrhosis of liver K74.69 ; Chronic kidney disease, stage 3 (moderate) N18.3 ; Chronic diastolic (congestive) heart failure I50.32 ; Paroxysmal atrial fibrillation I48.0 ; Morbid (severe) obesity due to excess calories E66.01 and Hyperlipidemia, unspecified hyperlipidemia type E78.5 [facility] [address] [facility] [id number] [address] [place] [address] May, [address] [id number] [address] Apr, [facility] [address] [facility] [id number] [address] [place] [address] Mar, [facility] [address] [facility] [id number] [address] [place] [address] Mar, [facility] [address] [facility] [id number] [address] [place] [address] Mar, [facility] [address] [facility] [id number] [address] [place] [address] Mar, [facility] [address] [facility] [id number] [address] [place] [address] Mar, [address] [id number], [place] [address] Mar, [address] [id number], [place] [address] Mar, [facility] [address] [facility] [id number] [address] [place] [address] Mar, [facility] [address] [id number] [address] [place] [address] Mar, [facility] [address] [id number] [address] [place] [address] Mar, [facility] [address] [id number] [address] [place] [address] Feb, [facility] [address] [id number] [address] [place] [address] Feb, Coronary artery disease invo lving mcgrath coronary artery of mcgrath heart without angina pectoris I25.10 ; Chronic kidney disease, stage 3 (moderate) N18.3 and Morbid (severe) obesity due to excess calories E66.01 [facility] [address] [id number] [address] [place] [address] Feb, [facility] [address] [id number] [address] [place] [address] Feb, [facility] [address] [id number] [address] [place] [address] Feb, [facility] [address] [id number] [address] [place] [address] Jan, [facility] [address] [id number] [address] [place] [address] Jan, [facility] [address] [id number] [address] [place] [address] Jan, [facility] [address] [id number] [address] [place] [address] Jan, [facility] [address] [id number] [address] [place] [address] Jan, [facility] [address] [id number] [address] [place] [address] Jan, [facility] [address] [id number] [address] [place] [address] Dec, [facility] [address] [id number] [place] [address] Dec, [facility] [address] [id number] [address] [place] [address] Nov, [facility] [address] [id number] [address] [place] [address] Nov, [facility] [address] [id number] [address] [place] [address] Nov, [facility] [address] [id number] [address] [place] [address] Nov, [facility] CHRISTIANO LORD [address] [id number] [place] [address] Oct, [facility] [address] [id number] [address] [place] [address] Oct, [facility] CHRISTIANO LORD [address] [id number] [place] [address] Sep, [facility] [address] [id number] [address] [place] [address] Sep, [facility] [address] [id number] [address] [place] [address] Aug, Type 2 diabetes mellitus wit h unspecified complications E11.8 ; group home 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 and Obesity (BMI 30-39.9) E66.9 [facility] CHRISTIANO LORD [address] [id number] [place] [address] Aug, Type 2 diabetes mellitus wit hout complications E11.9 [facility] CHRISTIANO LORD [address] [id number] [place] [address] Aug, Type 2 diabetes mellitus wit hout complications E11.9 [facility] [address] [id number] [address] [place] [address] Aug, [facility] CHRISTIANO [address] [id number] [place] [address] July, intermission coordinator 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 ins ulin Z79.4 and Type 2 diabetes mellitus with unspecified complications E11.8 [facility] [address] [facility] 340[address] [id number] [place] [address] July, Screening mammogram, encount er for Z12.31 [facility] [address] [facility] [id number] [address] [place] [address] July, [place] [address] [facility] [id number] [address] [place] [address] July, Paroxysmal atrial fibrillati on I48.0 and Coronary artery disease involving mcgrath coronary artery of mcgrath heart without angina pectoris I25.10 [place] [address] [facility] [id number] [address] [place] [address] Jun, [place] [address] [facility] [id number] [address] [place] [address] Jun, [facility] [address] [facility] [id number] [address] [place] [address] May, [place] [address] [facility] [id number] [address] [place] [address] May, Type 2 diabetes mellitus wit h unspecified complications E11.8 ; group home 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 ; Leg cramps R25.2 ; Essential hypertension I10 and Routine adult health maintenance Z00.00 [place] [address] [facility] [id number] [address] [place] [address] Apr, [facility] [address] [facility] [id number] [address] [place] [address] Apr, [facility] [address] [facility] [id number] [address] [place] [address] Mar, Type 2 diabetes mellitus wit hout complications E11.9 [facility] [address] [facility] [id number] [address] [place] [address] Mar, Type 2 diabetes mellitus wit hout complications E11.9 [facility] [address] [id number] [address] [place] [address] Mar, Type 2 diabetes mellitus wit hout complications E11.9 [facility] [address] [facility] [id number] [address] [place] [address] 14 Feb, 2018 Essential (primary) hyperten sofie I10 [facility] [address] [facility] [id number] [address] [place] [address] Feb, [facility] [address] [facility] [id number] [address] [place] [address] Jan, Type 2 diabetes mellitus wit hout complications E11.9 [facility] [address] [facility] [id number] [address] [place] [address] 30 Dec, 2017 [facility] [address] [facility] [id number] [address] [place] [address] Dec, Type 2 diabetes mellitus wit h diabetic neuropathy, unspecified E11.40 ; group home 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 and Chronic kidney disease, unspecified CKD stage N18.9 [facility] [address] [facility] [id number] [address] [place] [address] Dec, Type 2 diabetes mellitus wit hout complications E11.9 [facility] [address] [facility] [id number] [address] [place] [address] Dec, [facility] [address] [facility] [id number] [address] [place] [address] Dec, Type 2 diabetes mellitus wit hout complications E11.9 [facility] [address] [facility] [id number] [address] [place] [address] Dec, [facility] [address] [facility] [id number] [address] [place] [address] Oct, [facility] [address] [facility] [id number] [address] [place] [address] Sep, [facility] [address] [facility] [id number] [address] [place] [address] Aug, [facility] [address] [facility] [id number] [address] [place] [address] Aug, Exposure to hepatitis C Z20. 5 and Routine adult health maintenance Z00.00 [facility] [address] [facility] [id number] [address] [place] [address] 11 Aug, 2017 Exposure to hepatitis C Z20. 5 [facility] [address] [facility] [id number] [address] [place] [address] 11 Aug, 2017 Medicare annual wellness vis it, initial Z00.00 ; Coronary artery disease involving mcgrath coronary artery of mcgrath heart without angina pectoris I25.10 ; Hyperlipidemia, unspecified hyperlipidemia type E78.5 ; Essential hypertension I10 ; GERD (gastroesophageal reflux disease) K21.9 ; Routine adult health maintenance Z00.00 ; Encounter for immunization Z23 ; Type 2 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, unspecified E11.40 and group home 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 [place] [address] [facility] [id number] [address] [place] [address] 30 Jul, 2017 Type 2 diabetes mellitus wit hout complications E11.9 and Type 2 diabetes mellitus without complications E11.9 [place] [address] [facility] [id number] [address] [place] [address] 08 Jul, 2017 [place] [address] [facility] [id number] [address] [place] [address] July, [facility] [address] [facility] [id number] [address] [place] [address] Mar, Type 2 diabetes mellitus wit hout complications E11.9 [place] [address] [facility] [id number] [address] [place] [address] Mar, [place] [address] [facility] [id number] [address] [place] [address] 14 Feb, 2017 Type 2 diabetes mellitus wit hout complications E11.9 [place] [address] [facility] [id number] [address] [place] [address] Jan, Type 2 diabetes mellitus wit hout complications E11.9 [facility] [address] [id number] [address] [place] [address] Jan, Type 2 diabetes mellitus wit hout complications E11.9 [facility] [address] [id number] [address] [place] [address] Nov, [facility] [address] [facility] [id number] [address] [place] [address] Oct, Type 2 diabetes mellitus wit hout complications E11.9 [facility] [address] [id number] [address] [place] [address] Oct, Type 2 diabetes mellitus wit hout complications E11.9 ; Essential hypertension I10 and Neck pain M54.2 [facility] [address] [facility] [id number] [address] [place] [address] Sep, [facility] [address] [facility] [id number] [address] [place] [address] Aug, Type 2 diabetes mellitus wit hout complications E11.9 [facility] [address] [facility] [id number] [address] [place] [address] Jun, Type 2 diabetes mellitus wit hout complications E11.9 ; Neck pain M54.2 and Essential hypertension I10 [facility] [address] [facility] [id number] [address] [place] [address] 17 Jun, 2016 [facility] [address] [facility] [id number] [address] [place] [address] 14 Jun, 2016 [facility] [address] [facility] [id number] [address] [place] [address] Jun, GERD (gastroesophageal reflu x disease) K21.9 and Type 2 diabetes mellitus without complications E11.9 [facility] [address] [facility] [id number] [address] [place] [address] Mar, Paresthesias in right hand R 20.2 [facility] [address] [facility] [id number] [address] [place] [address] Feb, Type 2 diabetes mellitus wit hout complications E11.9 [facility] [address] [id number] [address] [place] [id number] Feb, Encounter for dental examina tion Z01.20 [facility] [address] [id number] [address] [place] [address] Feb, Type 2 diabetes mellitus wit hout complications E11.9 and Neck pain M54.2 [facility] [address] [id number] [address] [place] [address] Feb, Type 2 diabetes mellitus wit hout complications E11.9 [facility] [address] [id number] [address] [place] [id number] Jan, Dental examination Z01.20 [facility] [address] [id number] [address] [place] [address] Jan, [facility] [address] [id number] [address] [place] [address] Jan, [facility] [address] [id number] [address] [place] [id number] Dec, Dental caries K02.9 [facility] [address] [id number] [address] [place] [address] Nov, [facility] [address] [id number] [address] [place] [address] Nov, [facility] [address] [id number] [address] [place] [address] Oct, Type 2 diabetes mellitus wit hout complications E11.9 ; Neck pain M54.2 and Essential hypertension I10 [facility] [address] [id number] [address] [place] [address] Oct, [facility] [address] [id number] [address] [place] [id number] Oct, Dental examination Z01.20 [facility] [address] [id number] [address] [place] [address] Sep, [facility] [address] [facility] [id number] [address] [place] [address] Sep, [facility] [address] [facility] [id number] [address] [place] [address] Aug, Essential (primary) hyperten sofie I10 [facility] [address] [facility] [id number] [address] [place] [address] Aug, [facility] [address] [facility] [id number] [address] [place] [address] Aug, [facility] [address] [facility] [id number] [address] [place] [address] July, Essential (primary) hyperten sofie I10 [facility] [address] [facility] [id number] [address] [place] [address] July, Essential (primary) hyperten sofie I10 and Type 2 diabetes mellitus without complications E11.9 [facility] [address] [facility] [id number] [address] [place] [address] July, [facility] [address] [facility] [id number] [address] [place] [address] Jun, GERD (gastroesophageal reflu x disease) K21.9 [facility] [address] [facility] [id number] [address] [place] [address] Jun, GERD (gastroesophageal reflu x disease) K21.9 [facility] [address] [facility] [id number] [address] [place] [address] Jun, [facility] [address] [facility] [id number] [address] [place] [address] Jun, Neuropathy G62.9 [facility] [address] [facility] [id number] [address] [place] [address] May, Essential (primary) hyperten sofie I10 [facility] [address] [facility] [id number] [address] [place] [address] May, Bronchitis J40 [facility] [address] [facility] [id number] [address] [place] [address] 15 May, 2015 Type 2 diabetes mellitus wit hout complications E11.9 and Essential (primary) hypertension I10 [facility] [address] [facility] [id number] [address] [place] [address] May, [facility] [address] [place] [id number] [place] [address] May, GERD (gastroesophageal reflu x disease) K21.9 [facility] [address] [place] [id number] [address] [place] [address] 25 Apr, 2015 Other and unspecified hyperl ipidemia 272.4 ; Unspecified essential hypertension 401.9 ; Type 2 diabetes mellitus without complications E11.9 ; Neck pain M54.2 and Paresthesias in right hand R20.2 [facility] [address] [place] [id number] [address] [place] [address] Apr, [facility] [address] [place] [id number] [address] [place] [address] Apr, Neuropathy G62.9 [facility] [address] [place] [id number] [address] [place] [address] Mar, [facility] [address] [place] [id number] [address] [place] [address] Feb, [facility] [address] [place] [id number] [address] [place] [address] Jan, [facility] [address] [place] [id number] [address] [place] [address] Dec, [facility] [address] [place] [id number] [place] [address] Dec, Type 2 diabetes mellitus wit hout complications E11.9 ; Encounter for immunization Z23 and Neck pain M54.2 [facility] [address] [place] [id number] [address] [place] [address] Dec, [facility] [address] [id number] [address] [place] [address] Nov, [facility] [address] [id number] [address] [place] [address] Nov, [facility] [address] [id number] [address] [place] [address] Oct, [facility] [address] [id number] [address] [place] [address] Oct, [facility] [address] [id number] [address] [place] [address] Sep, [facility] [address] [id number] [address] [place] [address] Sep, Coronary atherosclerosis of unspecified type of vessel, mcgrath or graft 414.00 ; Diabetes mellitus without mention of complication, type II or unspecified type, not stated as uncontrolled 250.00 ; Hyperlipidemia 272.4 and HTN (hypertension) 401.9 [facility] [address] [id number] [address] [place] [address] Aug, [facility] [address] [id number] [address] [place] [address] July, [facility] [address] [facility] [id number] [address] [place] [phone] Jun, [facility] [address] [id number] [address] [place] [id number] Jun, [facility] [address] [id number] [address] [place] [id number] May, [facility] [address] [id number] [address] [place] [phone] May, [facility] [address] [id number] [address] [place] [phone] May, [facility] [address] [id number] [address] [place] [id number] May, [facility] [address] [id number] [address] [place] [address], [place] [id number] Apr, [facility] [address] [id number] [address] [place] [address], [place] [id number] Apr, [facility] [address] [id number] [address] [place] [address], [place] [id number] Apr, [facility] [address] [id number] [address] [place] [address], [place] [id number] Apr, [facility] [address] [id number] [address] [place] [address], [place] [id number] Apr, [facility] [address] [id number] [address] [place] [address], [place] [id number] Apr, [facility] [address] [id number] [address] [place] [address], [place] [id number] Apr, [facility] [address] [id number] [address] [place] [address], [place] [id number] Apr, [facility] [address] [id number] [address] [place] [address], [place] [id number] Mar, [facility] [address] [id number] [address] [place] [address], [place] [id number] Mar, [facility] [address] [id number] [address] [place] [address], [place] [id number] Mar, [facility] [address] [address] [id number] [address] [place] [address] Mar, [facility] [address] [id number] [address] [place] [address], [place] [address] Mar, [facility] [address] [id number] [address] [place] [address], [place] [address] Mar, [facility] [address] [id number] [address] [place] [address], [place] [address] Mar, [facility] [address] [id number] [address] [place] [address], [place] [address] Mar, [facility] [address] [id number] [address] [place] [address], [place] [address] Feb, [facility] [address] [id number] [address] [place] [address], [place] [address] Feb, [facility] [address] [id number] [address] [place] [address], [place] [address] Feb, [facility] [address] [id number] [address] [place] [address], [place] [address] Feb, [facility] [address] [id number] [address] [place] [address], [place] [address] Feb, [facility] [address] [id number] [address] [place] [address], [place] [address] Feb, [facility] [address] [id number] [address] [place] [address], [place] [address] Feb, [facility] [address] [id number] [address] [place] [address], [place] [address] Feb, [facility] [address] [id number] [address] [place] [address], [place] [address] Feb, [facility] [address] [id number] [address] [place] [address], [place] [address] Feb, [facility] [address] [id number] [address] [place] [address], [place] [address] Jan, [facility] [address] [id number] [address] [place] [address], [place] [address] Jan, [facility] [address] [id number] [address] [place] [address], [place] [address] Dec, [facility] [address] [id number] [address] [place] [address], [place] [address] Dec, [facility] [address] [id number] [address] [place] [address], [place] [address] Dec, [facility] [address] [id number] [address] [place] [address], [place] [address] Dec, [facility] [address] [id number] [address] [place] [address], [place] [address] Nov, [facility] [address] [id number] [address] [place] [address], [place] [address] Nov, [facility] [address] [id number] [address] [place] [address], [place] [address] Nov, [facility] [address] [id number] [address] [place] [address], [place] [address] Nov, [facility] [address] [id number] [address] [place] [address], [place] [address] Oct, [facility] [address] [id number] [address] [place] [address], [place] [address] Oct, [facility] [address] [id number] [address] [place] [address], [place] [address] Oct, [facility] [address] [id number] [address] [place] [address], [place] [address] Oct, [facility] [address] [id number] [address] [place] [address], [place] [address] Oct, [facility] [address] [id number] [address] [place] [address], [place] [address] Sep, [facility] [address] [id number] [address] [place] [address], [place] [address] Sep, [facility] [address] [id number] [address] [place] [address], [place] [address] Sep, [facility] [address] [id number] [address] [place] [address], [place] [address] Sep, [facility] [address] [id number] [address] [place] [address], [place] [address] Sep, [facility] [address] [id number] [address] [place] [address], [place] [address] Sep, [facility] [address] [id number] [address] [place] [address], [place] [address] Aug, [facility] [address] [id number] [address] [place] [address], [place] [address] Aug, [facility] [address] [id number] [address] [place] [address], [place] [address] Aug, [facility] [address] [id number] [address] [place] [address], [place] [address] Aug, [facility] [address] [id number] [address] [place] [address], [place] [address] Aug, [facility] [address] [id number] [address] [place] [address], [place] [address] Aug, [facility] [address] [id number] [address] [place] [address], [place] [address] July, [facility] [address] [id number] [address] [place] [address], [place] [address] July, [facility] [address] [id number] [address] [place] [address], [place] [address] Jun, [facility] [address] [id number] [address] [place] [address], [place] [address] Jun, [facility] [address] [id number] [address] [place] [address], [place] [address] May, [facility] [address] [id number] [address] [place] [address], [place] [address] May, [facility] [address] [id number] [address] [place] [address], [place] [address] May, [facility] [address] [id number] [address] [place] [address], [place] [address] May, [facility] [address] [id number] [address] [place] [address], [place] [address] Apr, [facility] [address] [id number] [address] [place] [address], [place] [address] 10 Apr, 2013 [facility] [address] [id number] [address] [place] [address], [place] [address] Apr, 2013 [facility] [address] [id number] [address] [place] [address], [place] [address] Apr, 2013 [facility] [address] [id number] [address] [place] [address], [place] [address] Apr, 2013 [facility] [address] [id number] [address] [place] [address], [place] [address] Apr, 2013 [facility] [address] [id number] [address] [place] [address], [place] [address] Feb, [facility] [address] [id number] [address] [place] [address], [place] [address] Feb, [facility] [address] [id number] [address] [place] [address], [place] [address] Feb, [facility] [address] [id number] [address] [place] [address], [place] [address] Feb, [facility] [address] [id number] [address] [place] [address], [place] [address] Jan, [facility] [address] [id number] [address] [place] [address], [place] [address] Jan, [facility] [address] [id number] [address] [place] [address], [place] [address] Dec, [facility] [address] [id number] [address] [place] [address], [place] [address] Dec, [facility] [address] [id number] [address] [place] [address], [place] [address] Dec, [facility] [address] [id number] [address] [place] [address], [place] [address] 14 Dec, 2012 [facility] [address] [id number] [address] [place] [address], [place] [address] Oct, [facility] [address] [id number] [facility] [id number] Oct, [facility] [address] [id number] [place] [id number] Oct, [facility] [address] [id number] [address] [place] [address], [place] [address] Oct, [facility] [address] [id number] [address] [place] [address], [place] [address] Sep, [facility] [address] [id number] [address] [place] [address], [place] [address] Sep, [facility] [address] [id number] [address] [place] [address] Aug, [facility] [address] [id number] [address] [place] [address], [place] [address] Aug, [facility] [address] [id number] [address] [place] [address] Aug, [facility] [address] [id number] [address] [place] [address] Aug, [facility] [address] [id number] [address] [place] [address] July, [facility] [address] [id number] [address] [place] [id number] Jun, [facility] [address] [id number] [address] [place] [address] May, [facility] [address] [id number] [address] [place] [address] May, [facility] [address] [id number] [address] [place] [address] May, [facility] [address] [id number] [address] [place] [address] May, [facility] [address] [id number] [address] [place] [address], [place] [address] 05 May, 2012 [facility] [address] [id number] [address] [place] [address], [place] [address] Apr, [facility] [address] [id number] [address] [place] [address], [place] [address] 19 Apr, 2012 [facility] [address] [id number] [address] [place] [address], [place] [address] 07 Apr, 2012 [facility] [address] [id number] [address] [place] [address], [place] [address] 04 Apr, 2012 [facility] [address] [id number] [address] [place] [address], [place] [address] Mar, [facility] [address] [id number] [address] [place] [address], [place] [address] Mar, [facility] [address] [id number] [address] [place] [address], [place] [address] Mar, [facility] [address] [id number] [address] [place] [address], [place] [address] Mar, [facility] [address] [id number] [address] [place] [address], [place] [address] 16 Jan, 2012 [facility] [address] [id number] [address] [place] [address], [place] [address] 16 Jan, 2012 [facility] [address] [id number] [address] [place] [address], [place] [address] 15 Jan, 2012 [facility] [address] [id number] [address] [place] [address], [place] [address] 15 Jan, 2012 [facility] [address] [id number] [address] [place] [address], [place] [address] 07 Jan, 2012 [facility] [address] [id number] [address] [place] [address], [place] [address] 07 Jan, 2012 [facility] [address] [id number] [address] [place] [address], [place] [address] Jan, [facility] [address] [id number] [address] [place] [address] Jan, [facility] [address] [id number] [address] [place] [address] Jan, [facility] [address] [id number] [address] [place] [address] Jan, [facility] [address] [id number] [address] [place] [address] Dec, [facility] [address] [id number] [address] [place] [address] Dec, [facility] [address] [id number] [address] [place] [address] Dec, [facility] [address] [id number] [address] [place] [address] Nov, [facility] [address] [id number] [address] [place] [address] Nov, [facility] [address] [id number] [address] [place] [address] Nov, [facility] [address] [id number] [address] [place] [address] Nov, [facility] [address] [id number] [address] [place] [id number] Oct, [facility] [address] [id number] [address] [place] [address] Oct, IMMUNIZATIONS No Known Immunizations SOCIAL HISTORY Never Assessed REASON FOR VISIT PLAN OF CARE VITAL SIGNS Height 64 in 2013-10-23 Weight 183.19 lbs 2013-10-23 Temperature 97.1 degrees Fahrenheit 2013-10-23 Heart Rate 80 bpm 2013-10-23 Respiratory Rate 18 2013-10-23 Blood pressure systolic 160 mmHg 2013-10-23 Blood pressure diastolic 108 mmHg 2013-10-23 MEDICATIONS Unknown Medications RESULTS No Results PROCEDURES Procedure Date Ordered Result Body Site MAMMOGRAM, SCREENING Oct 23, 2013 INSTRUCTIONS MEDICATIONS ADMINISTERED No Known Medications MEDICAL [...] [facility] Surgical History colonoscopy and egd 01/2019 Hospitalization History surgeries Hospitalization History [place] 06/2018 Hospitalization History [facility] 07/2018 Hospitalization History [facility]en[facility] - heart attack and rehab -03/02/2019
--- OUTSIDE RECORDS SUMMARY | 2019-07-20 17:12 | XMS REPORT ---
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 Name Role Phone Migration, Doctor Unavailable Unavailable PROBLEMS Type Condition ICD9-CM Code [id number] Code Onset Dates Condition S tatus SNOMED Code Problem Hyperlipidemia, unspecified hyperlipidemia type E7 8.5 Active 30437199 Problem Paresthesias in right hand R20.2 Act chidi 723653216 Problem Coronary artery disease invo lving [place] coronary artery of [place] heart without angina pectoris I25.10 Active 1641 085497478 Problem Essential hypertension I10 Active 42074503 Problem Neck pain M54.2 Active 34515880 Problem Type 2 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, uns pecified E11.40 Active 26923726 Problem Chronic kidney disease, unspecified CKD stage N18. 9 Active 747550828 Problem Paroxysmal atrial fibrillation I48.0 Active 943365597 Problem Other cirrhosis of liver K74.69 Activ e 15228980 Problem detention 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 Active 962890701 Problem Chronic diastolic (congestive) heart failure I50.3 2 Active 078831877 Problem GERD (gastroesophageal reflux disease) K21.9 Active 607049224 Problem Obesity (BMI 30-39.9) E66.9 Active 702587111 Problem Chronic kidney disease, stage 3 (moderate) N18.3 Active 480693342 Problem Morbid (severe) obesity due to excess calories E66 .01 Active 262278405 Problem Type 2 diabetes mellitus with other specified complication E11.69 Active 88471814 ALLERGIES No Information ENCOUNTERS Encounter Location Date Diagnosis [facility] [address] [facility] [id number] [address] [place] [phone] 04 Jun, 2019 [facility] [address] [facility] [id number] [address] [place] [phone] May, [facility] [address] [facility] [id number] [address] [place] [phone] May, Other cirrhosis of liver K74 .69 and Type 2 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, unspecified whether senior care insulin use E11.40 [facility] [address] [id number] [address] [place] [phone] 16 May, 2019 [facility] [address] [facility] [id number] [address] [place] [phone] 12 May, 2019 Type 2 diabetes mellitus wit h other specified complication E11.69 ; Other cirrhosis of liver K74.69 ; Chronic kidney disease, stage 3 (moderate) N18.3 ; Chronic diastolic (congestive) heart failure I50.32 ; Paroxysmal atrial fibrillation I48.0 ; Morbid (severe) obesity due to excess calories E66.01 and Hyperlipidemia, unspecified hyperlipidemia type E78.5 [facility] [address] [facility] [id number] [address] [place] [phone] May, [address] [id number] [address] Apr, [facility] [address] [facility] [id number] [address] [place] [phone] Mar, [facility] [address] [facility] [id number] [address] [place] [phone] Mar, [facility] [address] [facility] [id number] [address] [place] [phone] Mar, [facility] [address] [facility] [id number] [address] [place] [phone] Mar, [facility] [address] [facility] [id number] [address] [place] [phone] Mar, [address] [id number] [address] Mar, [address] [id number], [place] [address] Mar, [facility] [address] [facility] [id number] [address] [place] [id number] Mar, [facility] [address] [id number] [address] [place] [phone] Mar, [facility] [address] [id number] [address] [place] [phone] Mar, [facility] [address] [id number] [address] [place] [phone] Feb, [facility] [address] [id number] [address] [place] [id number] Feb, Coronary artery disease invo lving [place] coronary artery of [place] heart without angina pectoris I25.10 ; Chronic kidney disease, stage 3 (moderate) N18.3 and Morbid (severe) obesity due to excess calories E66.01 [facility] [address] [id number] [address] [place] [phone] Feb, [facility] [address] [id number] [address] [place] [phone] Feb, [facility] [address] [id number] [address] [place] [phone] Feb, [facility] [address] [id number] [address] [place] [phone] Jan, [facility] [address] [id number] [address] [place] [phone] Jan, [facility] [address] [id number] [address] [place] [id number] Jan, [facility] [address] [id number] [address] [place] [phone] Jan, [facility] [address] [id number] [address] [place] [phone] Jan, [facility] [address] [id number] [address] [place] [phone] Jan, [facility] [address] [id number] [address] [place] [phone] Dec, [address] 340[address] [id number] [address] Dec, [facility] [address] [id number] [address] [place] [phone] Nov, [facility] [address] [id number] [address] [place] [phone] Nov, [facility] [address] [facility] [id number] [address] [place] [phone] Nov, [facility] [address] [id number] [address] [place] [phone] Nov, [address] [id number], [place] [address] Oct, [facility] [address] [id number] [address] [place] [phone] Oct, [address] [id number], [place] [address] Sep, [facility] [address] [id number] [address] [place] [phone] Sep, [facility] [address] [facility] [id number] [address] [place] [phone] Aug, Type 2 diabetes mellitus wit h unspecified complications E11.8 ; detention 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 and Obesity (BMI 30-39.9) E66.9 [facility] [address] [id number], [place] [address] Aug, Type 2 diabetes mellitus wit hout complications E11.[address] [id number] [place] [address] Aug, Type 2 diabetes mellitus wit hout complications E11.9 [facility] [address] [id number] [address] [place] [phone] Aug, [facility] [address] [id number] [place] [address] July, 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 [id number] [address] [place] [phone] July, Paroxysmal atrial fibrillati on I48.0 and Coronary artery disease involving [place] coronary artery of [place] heart without angina pectoris I25.10 [facility] [address] [id number] [address] [place] [phone] Jun, [facility] [address] [id number] [address] [place] [phone] Jun, [facility] [address] 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 [id number] [address] [place] [id number] Mar, Type 2 diabetes mellitus wit hout complications E11.9 [facility] [address] [id number] [address] [place] [id number] Mar, Type 2 diabetes mellitus wit hout complications E11.9 [facility] [address] [facility] [id number] [address] [place] [phone] Mar, Type 2 diabetes mellitus wit hout complications E11.9 [facility] [address] [id number] [address] [place] [phone] Feb, Essential (primary) hyperten sofie I10 [facility] [address] [id number] [address] [place] [phone] Feb, [facility] [address] [facility] [id number] [address] [place] [id number] Jan, Type 2 diabetes mellitus wit hout complications E11.9 [facility] [address] [facility] [id number] [address] [place] [phone] 30 Dec, 2017 [facility] [address] [facility] [id number] [address] [place] [phone] Dec, Type 2 diabetes mellitus wit h diabetic neuropathy, unspecified E11.40 ; detention 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 and Chronic kidney disease, unspecified CKD stage N18.9 [facility] [address] [facility] [id number] [address] [place] [phone] 15 Dec, 2017 Type 2 diabetes mellitus wit hout complications E11.9 [facility] [address] [facility] [id number] [address] [place] [phone] Dec, [facility] [address] [facility] [id number] [address] [place] [phone] Dec, Type 2 diabetes mellitus wit hout complications E11.9 [facility] [address] [id number] [address] [place] [phone] Dec, [facility] [address] [facility] [id number] [address] [place] [phone] Oct, [facility] [address] [facility] [id number] [address] [place] [phone] Sep, [facility] [address] [facility] [id number] [address] [place] [phone] Aug, [facility] [address] [facility] [id number] [address] [place] [id number] 11 Aug, 2017 Exposure to hepatitis C Z20. 5 and Routine adult health maintenance Z00.00 [facility] [address] [facility] [id number] [address] [place] [phone] 11 Aug, 2017 Exposure to hepatitis C Z20. 5 [facility] [address] [facility] [id number] [address] [place] [phone] 11 Aug, 2017 Medicare annual wellness vis it, initial Z00.00 ; Coronary artery disease involving [place] coronary artery of [place] heart without angina pectoris I25.10 ; Hyperlipidemia, unspecified hyperlipidemia type E78.5 ; Essential hypertension I10 ; GERD (gastroesophageal reflux disease) K21.9 ; Routine adult health maintenance Z00.00 ; Encounter for immunization Z23 ; Type 2 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, unspecified E11.40 and detention 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 [facility] [address] [facility] [id number] [address] [place] [id number] 30 Jul, 2017 Type 2 diabetes mellitus wit hout complications E11.9 and Type 2 diabetes mellitus without complications E11.9 [facility] [address] [id number] [address] [place] [id number] July, [facility] [address] [facility] [id number] [address] [place] [phone] July, [facility] [address] [facility] [id number] [address] [place] [phone] Mar, Type 2 diabetes mellitus wit hout complications E11.9 [facility] [address] [id number] [address] [place] [phone] 08 Mar, 2017 [facility] [address] [id number] [address] [place] [phone] Feb, Type 2 diabetes mellitus wit hout complications E11.9 [facility] [address] [id number] [address] [place] [id number] 16 Jan, 2017 Type 2 diabetes mellitus wit hout complications E11.9 [facility] [address] [facility] [id number] [address] [place] [phone] Jan, Type 2 diabetes mellitus wit hout complications E11.9 [facility] [address] [facility] [id number] [address] [place] [phone] Nov, [facility] [address] [facility] [id number] [address] [place] [phone] 16 Oct, 2016 Type 2 diabetes mellitus wit hout complications E11.9 [facility] [address] [facility] [id number] [address] [place] [id number] Oct, Type 2 diabetes mellitus wit hout complications E11.9 ; Essential hypertension I10 and Neck pain M54.2 [facility] [address] [facility] [id number] [address] [place] [id number] Sep, [facility] [address] [facility] [id number] [address] [place] [phone] Aug, Type 2 diabetes mellitus wit hout complications E11.9 [facility] [address] [facility] [id number] [address] [place] [id number] Jun, Type 2 diabetes mellitus wit hout complications E11.9 ; Neck pain M54.2 and Essential hypertension I10 [facility] [address] [facility] [id number] [address] [place] [phone] 17 Jun, 2016 [facility] [address] [facility] [id number] [address] [place] [phone] 14 Jun, 2016 [facility] [address] [facility] [id number] [address] [place] [id number] 10 Jun, 2016 GERD (gastroesophageal reflu x disease) K21.9 and Type 2 diabetes mellitus without complications E11.9 [facility] [address] [facility] [id number] [address] [place] [phone] Mar, Paresthesias in right hand R 20.2 [facility] [address] [facility] [id number] [address] [place] [id number] Feb, Type 2 diabetes mellitus wit hout complications E11.9 [facility] [address] [id number] [address] [place] [id number] Feb, Encounter for dental examina tion Z01.20 [facility] [address] [id number] [address] [place] [phone] Feb, Type 2 diabetes mellitus wit hout complications E11.9 and Neck pain M54.2 [facility] [address] [id number] [address] [place] [id number] Feb, Type 2 diabetes mellitus wit hout complications E11.9 [facility] [address] [id number] [address] [place] [address] [id number] Jan, Dental examination Z01.20 [facility] [address] [id number] [address] [place] [phone] Jan, [facility] [address] [id number] [address] [place] [phone] Jan, [facility] [address] [id number] [address] [place] [id number] Dec, Dental caries K02.9 [facility] [address] [id number] [address] [place] [id number] Nov, [facility] [address] [id number] [address] [place] [id number] Nov, [facility] [address] [id number] [address] [place] [phone] Oct, Type 2 diabetes mellitus wit hout complications E11.9 ; Neck pain M54.2 and Essential hypertension I10 [facility] [address] [id number] [address] [place] [phone] Oct, [facility] [address] [id number] [address] [place] [address] [id number] Oct, Dental examination Z01.20 [facility] [address] [id number] [address] [place] [phone] Sep, [facility] [address] [id number] [address] [place] [id number] Sep, [facility] [address] [facility] [id number] [address] [place] [id number] Aug, Essential (primary) hyperten sofie I10 [facility] [address] [id number] [address] [place] [phone] Aug, [facility] [address] [facility] [id number] [address] [place] [phone] Aug, [facility] [address] [facility] [id number] [address] [place] [phone] July, Essential (primary) hyperten sofie I10 [facility] [address] [facility] [id number] [address] [place] [id number] July, Essential (primary) hyperten sofie I10 and Type 2 diabetes mellitus without complications E11.9 [facility] [address] [facility] [id number] [address] [place] [phone] July, [facility] [address] [facility] [id number] [address] [place] [phone] Jun, GERD (gastroesophageal reflu x disease) K21.9 [facility] [address] [facility] [id number] [address] [place] [phone] Jun, GERD (gastroesophageal reflu x disease) K21.9 [facility] [address] [facility] [id number] [address] [place] [phone] Jun, [facility] [address] [facility] [id number] [address] [place] [phone] Jun, Neuropathy G62.9 [facility] [address] [facility] [id number] [address] [place] [id number] May, Essential (primary) hyperten sofie I10 [facility] [address] [facility] [id number] [address] [place] [phone] May, Bronchitis J40 [facility] [address] [facility] [id number] [address] [place] [id number] 15 May, 2015 Type 2 diabetes mellitus wit hout complications E11.9 and Essential (primary) hypertension I10 [facility] [address] [facility] [id number] [address] [place] [id number] 10 May, 2015 [facility] [address] [facility] [id number] [address] [place] [phone] 10 May, 2015 GERD (gastroesophageal reflu x disease) K21.9 [facility] [address] [facility] [id number] [address] [place] [phone] 25 Apr, 2015 Other and unspecified hyperl ipidemia 272.4 ; Unspecified essential hypertension 401.9 ; Type 2 diabetes mellitus without complications E11.9 ; Neck pain M54.2 and Paresthesias in right hand R20.2 [facility] [address] [id number] [address] [place] [phone] 11 Apr, 2015 [facility] [address] [place] [id number] [place] [phone] Apr, Neuropathy G62.9 [facility] [address] [id number] [address] [place] [phone] Mar, [facility] [address] [place] [id number] [place] [phone] Feb, [facility] [address] [id number] [address] [place] [phone] Jan, [facility] [address] [id number] [address] [place] [phone] Dec, [facility] [address] [place] [id number] [address] [place] [phone] Dec, Type 2 diabetes mellitus wit hout complications E11.9 ; Encounter for immunization Z23 and Neck pain M54.2 [facility] [address] [facility] [id number] [address] [place] [phone] 09 Dec, 2014 [facility] [address] [id number] [address] [place] [phone] Nov, [facility] [address] [id number] [address] [place] [phone] Nov, [facility] [address] [id number] [address] [place] [phone] Oct, [facility] [address] [id number] [address] [place] [phone] Oct, [facility] [address] [id number] [address] [place] [phone] Sep, [facility] [address] [id number] [address] [place] [phone] Sep, Coronary atherosclerosis of unspecified type of vessel, [place] or graft 414.00 ; Diabetes mellitus without mention of complication, type II or unspecified type, not stated as uncontrolled 250.00 ; Hyperlipidemia 272.4 and HTN (hypertension) 401.9 [facility] [address] [id number] [address] [place] [phone] Aug, [facility] [address] [id number] [address] [place] [phone] July, [facility] [address] [id number] [address] [place] [phone] Jun, [facility] [address] [id number] [address] [place] [id number] Jun, [facility] [address] [id number] [address] [place] [phone] May, [facility] [address] [id number] [address] [place] [id number] May, [facility] [address] [id number] [address] [place] [id number] May, [facility] [address] [id number] [address] [place] [address] May, [facility] [address] [id number] [address] [place] [address] Apr, [facility] [address] [id number] [address] [place] [address], [place] [address] Apr, [facility] [address] [id number] [address] [place] [address], [place] [address] Apr, [facility] [address] [id number] [address] [place] [address], [place] [address] Apr, 2014 [facility] [address] [id number] [address] [place] [address], [place] [address] Apr, 2014 [facility] [address] [id number] [address] [place] [address], [place] [address] Apr, [facility] [address] [id number] [address] [place] [address], [place] [address] Apr, [facility] [address] [id number] [address] [place] [address], [place] [address] Apr, [facility] [address] [id number] [address] [place] [address], [place] [address] Mar, [facility] [address] [id number] [address] [place] [address], [place] [address] Mar, [facility] [address] [id number] [address] [place] [address], [place] [address] Mar, [facility] [address] [id number] [address] [place] [address], [place] [address] Mar, [facility] [address] [id number] [address] [place] [id number] Mar, [facility] [address] [id number] [address] [place] [address], [place] [address] Mar, [facility] [address] [id number] [address] [place] [address], [place] [address] Mar, [facility] [address] [id number] [address] [place] [address], [place] [address] Mar, [facility] [address] [id number] [address] [place] [address], [place] [address] Feb, [facility] [address] [id number] [address] [place] [address], [place] [address] Feb, [facility] [address] [id number] [address] [place] [address], [place] [address] Feb, [facility] [address] [id number] [address] [place] [address], [place] [address] Feb, [facility] [address] [id number] [address] [place] [address], [place] [address] Feb, [facility] [address] [id number] [address] [place] [address], [place] [address] Feb, [facility] [address] [id number] [address] [place] [address], [place] [address] Feb, [facility] [address] [id number] [address] [place] [address], [place] [address] Feb, [facility] [address] [id number] [address] [place] [address], [place] [address] Feb, [facility] [address] [id number] [address] [place] [address], [place] [address] Feb, [facility] [address] [id number] [address] [place] [address], [place] [address] Jan, [facility] [address] [id number] [address] [place] [address], [place] [address] Jan, [facility] [address] [id number] [address] [place] [address], [place] [address] Dec, [facility] [address] [id number] [address] [place] [address], [place] [address] Dec, [facility] [address] [id number] [address] [place] [address], [place] [address] Dec, [facility] [address] [id number] [address] [place] [address], [place] [address] Dec, [facility] [address] [id number] [address] [place] [address], [place] [address] Nov, [facility] [address] [id number] [address] [place] [address], [place] [address] Nov, [facility] [address] [id number] [address] [place] [address], [place] [address] Nov, [facility] [address] [id number] [address] [place] [address], [place] [address] Nov, [facility] [address] [id number] [address] [place] [address], [place] [address] Oct, [facility] [address] [id number] [address] [place] [address], [place] [address] Oct, [facility] [address] [id number] [address] [place] [address], [place] [address] Oct, [facility] [address] [id number] [address] [place] [address], [place] [address] Oct, [facility] [address] [id number] [address] [place] [address], [place] [address] Oct, [facility] [address] [id number] [address] [place] [address], [place] [address] Sep, [facility] [address] [id number] [address] [place] [address], [place] [address] Sep, [facility] [address] [id number] [address] [place] [address], [place] [address] Sep, [facility] [address] [id number] [address] [place] [address], [place] [address] Sep, [facility] [address] [id number] [address] [place] [address], [place] [address] Sep, [facility] [address] [id number] [address] [place] [address], [place] [address] Sep, [facility] [address] [id number] [address] [place] [address], [place] [address] Aug, [facility] [address] [id number] [address] [place] [address], [place] [address] Aug, [facility] [address] [id number] [address] [place] [address], [place] [address] Aug, [facility] [address] [id number] [address] [place] [address], [place] [address] Aug, [facility] [address] [id number] [address] [place] [address], [place] [address] Aug, [facility] [address] [id number] [address] [place] [address], [place] [address] Aug, [facility] [address] [id number] [address] [place] [address], [place] [address] July, [facility] [address] [id number] [address] [place] [address], [place] [address] July, [facility] [address] [id number] [address] [place] [address], [place] [address] Jun, [facility] [address] [id number] [address] [place] [address], [place] [address] Jun, [facility] [address] [id number] [address] [place] [address], [place] [address] May, [facility] [address] [id number] [address] [place] [address], [place] [address] May, [facility] [address] [id number] [address] [place] [id number] May, [facility] [address] [id number] [address] [place] [address], [place] [address] May, [facility] [address] [id number] [address] [place] [address], [place] [address] Apr, [facility] [address] [id number] [address] [place] [address], [place] [address] Apr, [facility] [address] [id number] [address] [place] [address], [place] [address] 10 Apr, 2013 [facility] [address] [id number] [address] [place] [address], [place] [address] Apr, 2013 [facility] [address] [id number] [address] [place] [address], [place] [address] Apr, 2013 [facility] [address] [id number] [address] [place] [address], [place] [address] Apr, 2013 [facility] [address] [id number] [address] [place] [address], [place] [address] Feb, [facility] [address] [id number] [address] [place] [address], [place] [address] Feb, [facility] [address] [id number] [address] [place] [address], [place] [address] Feb, [facility] [address] [id number] [address] [place] [address], [place] [address] Feb, [facility] [address] [id number] [address] [place] [address], [place] [address] Jan, [facility] [address] [id number] [address] [place] [address], [place] [address] Jan, [facility] [address] [id number] [address] [place] [address], [place] [address] 14 Dec, 2012 [facility] [address] [id number] [address] [place] [address], [place] [address] Dec, [facility] [address] [id number] [address] [place] [address], [place] [address] Dec, [facility] [address] [id number] [address] [place] [address], [place] [address] Dec, [facility] [address] [id number] [address] [place] [address], [place] [address] Oct, [facility] [address] [id number] [address] [place] [id number] Oct, [facility] [address] [id number] [facility] [place] [id number] Oct, [facility] [address] [id number] [address] [place] [address], [place] [address] Oct, [facility] [address] [id number] [address] [place] [address], [place] [address] Sep, [facility] [address] [id number] [address] [place] [address], [place] [address] Sep, [facility] [address] [id number] [address] [place] [address], [place] [address] Aug, [facility] [address] [id number] [address] [place] [address], [place] [address] Aug, [facility] [address] [id number] [address] [place] [address], [place] [address] Aug, [facility] [address] [id number] [address] [place] [address], [place] [address] Aug, [facility] [address] [id number] [address] [place] [address], [place] [address] July, [facility] [address] [id number] [address] [place] [address], [place] [address] Jun, [facility] [address] [id number] [address] [place] [address], [place] [address] May, [facility] [address] [id number] [address] [place] [address], [place] [address] May, [facility] [address] [id number] [address] [place] [address], [place] [address] May, [facility] [address] [id number] [address] [place] [address], [place] [address] May, [facility] [address] [id number] [address] [place] [address], [place] [address] May, [facility] [address] [id number] [address] [place] [address], [place] [address] Apr, [facility] [address] [id number] [address] [place] [address], [place] [address] Apr, [facility] [address] [id number] [address] [place] [address], [place] [address] 07 Apr, 2012 [facility] [address] [id number] [address] [place] [address], [place] [address] Apr, [facility] [address] [id number] [address] [place] [address], [place] [address] Mar, [facility] [address] [id number] [address] [place] [address], [place] [address] Mar, [facility] [address] [id number] [address] [place] [address], [place] [address] Mar, [facility] [address] [id number] [address] [place] [address], [place] [address] Mar, [facility] [address] [id number] [address] [place] [address], [place] [address] Jan, [facility] [address] [id number] [address] [place] [address], [place] [address] Jan, [facility] [address] [id number] [address] [place] [address], [place] [address] 15 Jan, 2012 [facility] [address] [id number] [address] [place] [address], [place] [address] Jan, [facility] [address] [id number] [address] [place] [address], [place] [address] Jan, [facility] [address] [id number] [address] [place] [address], [place] [address] Jan, [facility] [address] [id number] [address] [place] [address], [place] [address] Jan, [facility] [address] [id number] [address] [place] [address], [place] [address] Jan, [facility] [address] [id number] [address] [place] [address] Jan, [facility] [address] [id number] [address] [place] [address] Jan, [facility] [address] [id number] [address] [place] [address] Dec, [facility] [address] [id number] [address] [place] [address] Dec, [facility] [address] [id number] [address] [place] [address] Dec, [facility] [address] [id number] [address] [place] [address] Nov, [facility] [address] [id number] [address] [place] [address] Nov, [facility] [address] [id number] [address] [place] [address] Nov, [facility] [address] [id number] [address] [place] [address] Nov, [facility] [address] [id number] [address] [place] [address] Oct, [facility] [address] [id number] [address] [place] [address] Oct, IMMUNIZATIONS No Known Immunizations SOCIAL HISTORY Never Assessed REASON FOR VISIT PLAN OF CARE VITAL SIGNS Height 64 in 2012-04-13 Weight 206.3 lbs 2012-04-13 Heart Rate 82 bpm 2012-04-13 Blood pressure systolic 152 mmHg 2012-04-13 Blood pressure diastolic 80 mmHg 2012-04-13 MEDICATIONS Unknown Medications RESULTS No Results PROCEDURES Procedure Date Ordered Result Body Site BASIC METABOLIC PANEL Apr 13, 2012 VENIPUNCT, ROUTINE* Apr 13, 2012 INSTRUCTIONS MEDICATIONS ADMINISTERED No Known Medications MEDICAL [...] egd 01/2019 Hospitalization History surgeries Hospitalization History [facility] 06/2018 Hospitalization History [facility]- 07[facility]2018 Hospitalization [facility] - heart attack and rehab -03/02/2019
--- OUTSIDE RECORDS SUMMARY | 2019-07-20 17:12 | XMS REPORT ---
Author Author Sarah AMADO Organization [facility] Address [address] [place] [address] Care Team Providers Care Academic Support Director Name Role Phone GEE AMADO Unavailable PROBLEMS Type Condition ICD9-CM Code [id number] Code Onset Dates Condition S tatus SNOMED Code Problem Hyperlipidemia, unspecified hyperlipidemia type E7 8.5 Active 03657541 Problem Paresthesias in right hand R20.2 Act chidi 226960324 Problem Coronary artery disease invo lving red devil coronary artery of red devil heart without angina pectoris I25.10 Active 1641 [id number] Problem Essential hypertension I10 Active 51887933 Problem Neck pain M54.2 Active 25620531 Problem Type 2 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, uns pecified E11.40 Active 29303970 Problem Chronic kidney disease, unspecified CKD stage N18. 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 Active 518290879 Problem Chronic diastolic (congestive) heart failure I50.3 2 Active 366912633 Problem GERD (gastroesophageal reflux disease) K21.9 Active 142872530 Problem Obesity (BMI 30-39.9) E66.9 Active 681818566 Problem Chronic kidney disease, stage 3 (moderate) N18.3 Active 176718105 Problem Morbid (severe) obesity due to excess calories E66 .01 Active 153215703 Problem Type 2 diabetes mellitus with other specified complication E11.69 Active 19691885 ALLERGIES No Information ENCOUNTERS Encounter Location Date Diagnosis [facility] [address] [id number] [place] [address] May, [facility] [address] [id number] [place] [address] May, Type 2 diabetes mellitus with other spec ified complication E11.69 ; Other cirrhosis of liver K74.69 ; Chronic kidney disease, stage 3 (moderate) N18.3 ; Chronic diastolic (congestive) heart failure I50.32 ; Paroxysmal atrial fibrillation I48.0 ; Morbid (severe) obesity due to excess calories E66.01 and Hyperlipidemia, unspecified hyperlipidemia type E78.5 [facility] [address] [id number] [place] [address] May, [address] [place] [address] Apr, [facility] [id number] [place] [address] Mar, [facility] [id number] [place] [address] Mar, [facility] [id number] [place] [address] Mar, [facility] [id number] [place] [address] Mar, [facility] [address] [id number] [place] [address] Mar, [address] [place] [address] Mar, [address] [place] [address] Mar, [facility] [id number] [place] [address] Mar, [facility] [address] [id number] [place] [address] Mar, [facility] [address] [id number] [place] [address] Mar, [facility] [id number] [place] [address] Feb, [facility] [id number] [place] [address] Feb, Coronary artery disease involving red devil coronary artery of red devil heart without angina pectoris I25.10 ; Chronic kidney disease, stage 3 (moderate) N18.3 and Morbid (severe) obesity due to excess calories E66.01 [facility] [id number] [place] [address] Feb, [facility] [address] [id number] [place] [address] Feb, [facility] [id number] [place] [address] Feb, [facility] [address] [id number] [place] [address] Jan, [facility] [id number] [place] [address] Jan, [facility] [id number] [place] [address] Jan, [facility] [id number] [place] [address] Jan, [facility] [address] [id number] [place] [address] Jan, [facility] [id number] [place] [address] Jan, [facility] [id number] [place] [address] Dec, [address] [place] [address] Dec, [facility] [id number] [place] [address] Nov, [facility] [id number] [place] [address] Nov, [facility] [id number] [place] [address] Nov, [facility] [id number] [place] [address] Nov, [address] [place] [address] Oct, [facility] [address] [id number] [place] [address] Oct, [address] [place] [address] Sep, [facility] [address] [id number] [place] [address] Sep, [facility] [id number] [place] [address] Aug, Type 2 diabetes mellitus with unspecifie d complications E11.8 ; USP 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 and Obesity (BMI 30-39.9) E66.9 [address] [place] [address] Aug, Type 2 diabetes mellitus wit hout complications E11.9 [address] [place] [address] Aug, Type 2 diabetes mellitus wit hout complications E11.9 [address] [id number] [place] [address] Aug, [address] [place] [address] July, intermediate project manager 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 ins ulin Z79.4 and Type 2 diabetes mellitus with unspecified complications E11.8 [address] [place] [address] July, Screening mammogram, encount er for Z12.31 [place] [address] [id number] [place] [address] July, [address] [address] [address] July, Paroxysmal atrial fibrillation I48.0 and Coronary artery disease involving red devil coronary artery of red devil heart without angina pectoris I25.10 [facility] [id number] [place] [address] Jun, [facility] [address] [address] Jun, [facility] [address] [address] May, [facility] [address] [address] May, Type 2 diabetes mellitus with unspecifie d complications E11.8 ; USP 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 ; Leg cramps R25.2 ; Essential hypertension I10 and Routine adult health maintenance Z00.00 [facility] [address] [address] 07 Apr, 2018 [facility] [address] [address] Apr, [facility] [address] [address] Mar, Type 2 diabetes mellitus without complic ations E11.9 [facility] [address] [address] Mar, Type 2 diabetes mellitus without complic ations E11.9 [facility] [address] [address] Mar, Type 2 diabetes mellitus without complic ations E11.9 [place] [address] [address] Feb, Essential (primary) hypertension I10 [facility] [address] [address] Feb, [facility] [address] [address] Jan, Type 2 diabetes mellitus without complic ations E11.9 [facility] [address] [address] Dec, [facility] [address] [address] Dec, Type 2 diabetes mellitus with diabetic n europathy, unspecified E11.40 ; USP 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 and Chronic kidney disease, unspecified CKD stage N18.9 [place] [address] [address] 15 Dec, 2017 Type 2 diabetes mellitus without complic ations E11.9 [place] [address] [address] 10 Dec, 2017 [place] [address] [address] 09 Dec, 2017 Type 2 diabetes mellitus without complic ations E11.9 [place] [address] [address] 08 Dec, 2017 [place] [address] [address] Oct, [place] [address] [address] Sep, [place] [address] [address] Aug, [place] [address] [address] Aug, Exposure to hepatitis C Z20.5 and Routin e adult health maintenance Z00.00 [place] [address] [address] Aug, Exposure to hepatitis C Z20.5 [place] [address] [address] Aug, Medicare annual wellness visit, initial Z00.00 ; Coronary artery disease involving red devil coronary artery of red devil heart without angina pectoris I25.10 ; Hyperlipidemia, unspecified hyperlipidemia type E78.5 ; Essential hypertension I10 ; GERD (gastroesophageal reflux disease) K21.9 ; Routine adult health maintenance Z00.00 ; Encounter for immunization Z23 ; Type 2 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, unspecified E11.40 and intermediate project manager 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 [place] [address] [address] July, Type 2 diabetes mellitus without complic ations E11.9 and Type 2 diabetes mellitus without complications E11.9 [facility] [id number] [place] [address] July, [facility] [id number] [place] [address] July, [facility] [address] [address] Mar, Type 2 diabetes mellitus without complic ations E11.9 [facility] [address] [address] Mar, [facility] [address] [address] Feb, Type 2 diabetes mellitus without complic ations E11.9 [facility] [address] [address] Jan, Type 2 diabetes mellitus without complic ations E11.9 [facility] [id number] [place] [address] Jan, Type 2 diabetes mellitus without complic ations E11.9 [facility] [id number] [place] [address] Nov, [facility] [address] [address] Oct, Type 2 diabetes mellitus without complic ations E11.9 [facility] [address] [address] Oct, Type 2 diabetes mellitus without complic ations E11.9 ; Essential hypertension I10 and Neck pain M54.2 [facility] [id number] [place] [address] Sep, [facility] [address] [address] Aug, Type 2 diabetes mellitus without complic ations E11.9 [facility] [address] [address] 20 Jun, 2016 Type 2 diabetes mellitus without complic ations E11.9 ; Neck pain M54.2 and Essential hypertension I10 [facility] [address] [address] 17 Jun, 2016 [facility] [address] [address] 14 Jun, 2016 [facility] [address] [address] 10 Jun, 2016 GERD (gastroesophageal reflux disease) K 21.9 and Type 2 diabetes mellitus without complications E11.9 [place] [address] [address] Mar, Paresthesias in right hand R20.2 [place] [address] [address] Feb, Type 2 diabetes mellitus without complic ations E11.9 [facility] [address] [id number] Feb, Encounter for dental examination Z01.20 [facility] [address] [address] 09 Feb, 2016 Type 2 diabetes mellitus without complic ations E11.9 and Neck pain M54.2 [place] [address] [address] Feb, Type 2 diabetes mellitus without complic ations E11.9 [facility] [address] [id number] Jan, Dental examination Z01.20 [facility] [address] [address] Jan, [facility] [address] [address] Jan, [facility] [address] [id number] Dec, Dental caries K02.9 [facility] [id number] [place] [address] 30 Nov, 2015 [facility] [address] [address] Nov, [facility] [address] [address] Oct, Type 2 diabetes mellitus without complic ations E11.9 ; Neck pain M54.2 and Essential hypertension I10 [facility] [id number] [place] [address] Oct, [facility] [id number] [place] [id number] Oct, Dental examination Z01.20 [facility] [id number] [place] [address] Sep, [facility] [address] [address] Sep, [facility] [address] [address] Aug, Essential (primary) hypertension I10 [facility] [address] [address] Aug, [facility] [address] [address] Aug, [facility] [address] [address] July, Essential (primary) hypertension I10 [facility] [address] [address] July, Essential (primary) hypertension I10 and Type 2 diabetes mellitus without complications E11.9 [facility] [address] [address] July, [facility] [address] [address] 14 Jun, 2015 GERD (gastroesophageal reflux disease) K 21.9 [facility] [address] [address] Jun, GERD (gastroesophageal reflux disease) K 21.9 [facility] [id number] [place] [address] Jun, [facility] [address] [address] Jun, Neuropathy G62.9 [facility] [address] [address] May, Essential (primary) hypertension I10 [facility] [address] [facility] [id number] [place] [address] May, Bronchitis J40 [facility] [address] [address] 15 May, 2015 Type 2 diabetes mellitus without complic ations E11.9 and Essential (primary) hypertension I10 [facility] [id number] [place] [address] May, [facility] [address] [address] May, GERD (gastroesophageal reflux disease) K 21.9 [facility] [address] [address] Apr, Other and unspecified hyperlipidemia 272 .4 ; Unspecified essential hypertension 401.9 ; Type 2 diabetes mellitus without complications E11.9 ; Neck pain M54.2 and Paresthesias in right hand R20.2 [facility] [address] [address] Apr, [facility] [address] [address] Apr, Neuropathy G62.9 [facility] [address] [address] Mar, [facility] [address] [address] Feb, [facility] [address] [address] Jan, [facility] [address] [address] Dec, [facility] [address] [address] Dec, Type 2 diabetes mellitus without complic ations E11.9 ; Encounter for immunization Z23 and Neck pain M54.2 [facility] [address] [address] Dec, [facility] [address] [address] Nov, [facility] [address] [address] Nov, [facility] [address] [address] Oct, [facility] [address] [address] Oct, [facility] [address] [address] Sep, [facility] [address] [address] Sep, Coronary atherosclerosis of unspecified type of vessel, red devil or graft 414.00 ; Diabetes mellitus without mention of complication, type II or unspecified type, not stated as uncontrolled 250.00 ; Hyperlipidemia 272.4 and HTN (hypertension) 401.9 [facility] [address] [address] Aug, [facility] [address] [address] July, [facility] [address] [address] Jun, [facility] [address] [address] Jun, [facility] [address] [address] May, [facility] [address] [id number] [place] [address] May, [facility] [address] [id number] [facility] [place] [address] May, [facility] [address] [id number] [place] [address] May, [facility] [address] [id number] [place] [address] Apr, [facility] [address] [facility] [id number] [facility] [place] [address] Apr, [facility] [address] [id number] [place] [address] Apr, [facility] [address] [id number] [place] [address] Apr, [facility] [address] [id number] [place] [address] Apr, [facility] [address] [id number] [place] [address] Apr, [facility] [address] [id number] [place] [address] Apr, [facility] [address] [id number] [place] [address] Apr, [facility] [address] [id number] [place] [address] Mar, [facility] [address] [id number] [place] [address] Mar, [facility] [address] [id number] [place] [address] Mar, [facility] [address] [id number] [place] [address] Mar, [facility] [address] [id number] [place] [address] Mar, [facility] [address] [id number] [place] [address] Mar, [facility] [address] [id number] [place] [address] Mar, [facility] [address] [id number] [place] [address] Mar, [facility] [address] [id number] [place] [address] Feb, [facility] [address] [id number] [place] [address] Feb, [facility] [address] [id number] [place] [address] Feb, [facility] [address] [id number] [place] [address] Feb, [facility] [address] [id number] [place] [address] Feb, [facility] [address] [id number] [place] [address] Feb, [facility] [address] [id number] [place] [address] Feb, [facility] [address] [id number] [place] [address] Feb, [facility] [address] [id number] [place] [address] Feb, [facility] [address] [id number] [place] [address] Feb, [facility] [address] [id number] [place] [address] Jan, [facility] [address] [id number] [place] [address] Jan, [facility] [address] [id number] [place] [address] Dec, [facility] [address] [id number] [place] [address] Dec, [facility] [address] [facility] [id number] [place] [address] Dec, [facility] [address] [id number] [place] [address] Dec, [facility] [address] [id number] [place] [address] Nov, [facility] [address] [id number] [place] [address] Nov, [facility] [address] [facility] [id number] [place] [address] Nov, [facility] [address] [id number] [place] [address] Nov, [facility] [address] [id number] [place] [address] Oct, [facility] [address] [id number] [place] [address] Oct, [facility] [address] [id number] [place] [address] Oct, [facility] [address] [id number] [place] [address] Oct, [facility] [address] [id number] [place] [address] Oct, [facility] [address] [id number] [place] [address] Sep, [facility] [address] [id number] [place] [address] Sep, 2013 [facility] [address] [id number] [place] [address] Sep, [facility] [address] [id number] [place] [address] Sep, 2013 [facility] [address] [id number] [place] [address] Sep, 2013 [facility] [address] [id number] [place] [address] Sep, [facility] [address] [facility] [id number] [place] [address] Aug, [facility] [address] [facility] [id number] [place] [address] Aug, [facility] [address] [id number] [place] [address] Aug, [facility] [address] [id number] [place] [address] Aug, [facility] [address] [facility] [id number] [place] [address] Aug, [facility] [address] [id number] [place] [address] Aug, [facility] [address] [id number] [place] [address] July, [facility] [address] [id number] [place] [address] July, [facility] [address] [id number] [place] [address] Jun, [facility] [address] [id number] [place] [address] Jun, [facility] [address] [id number] [place] [address] May, [facility] [address] [id number] [place] [address] May, [facility] [address] [id number] [place] [address] May, [facility] [address] [id number] [place] [address] May, [facility] [address] [id number] [place] [address] Apr, [facility] [address] [id number] [place] [address] Apr, [facility] [address] [id number] [place] [address] 10 Apr, 2013 [facility] [id number] [place] [address] Apr, 2013 [facility] [address] [id number] [place] [address] Apr, [facility] [id number] [place] [address] Apr, [facility] [id number] [place] [address] Feb, [facility] [id number] [place] [address] Feb, [facility] [id number] [place] [address] Feb, [facility] [id number] [place] [address] Feb, [facility] [id number] [place] [address] Jan, [facility] [id number] [place] [address] Jan, [facility] [id number] [place] [address] Dec, [facility] [address] [id number] [place] [address] Dec, [facility] [address] [id number] [place] [address] Dec, [facility] [address] [id number] [place] [address] Dec, [facility] [address] [id number] [place] [address] Oct, [facility] [address] [id number] [place] [id number] Oct, [facility] [address] [id number] [place] [id number] Oct, [facility] [address] [id number] [place] [address] Oct, [facility] [address] [id number] [place] [address] Sep, [facility] [address] [id number] [place] [address] Sep, [facility] [address] [id number] [place] [address] Aug, [facility] [address] [id number] [place] [address] Aug, [facility] [address] [id number] [place] [address] Aug, [facility] [address] [id number] [place] [address] Aug, [facility] [address] [id number] [place] [address] July, [facility] [address] [id number] [place] [address] Jun, [facility] [address] [id number] [place] [address] May, [facility] [address] [id number] [place] [address] May, [facility] [address] [id number] [place] [address] May, [facility] [address] [id number] [place] [address] May, [facility] [address] [id number] [place] [address] May, [facility] [address] [id number] [place] [address] Apr, [facility] [address] [id number] [place] [address] Apr, [facility] [address] [id number] [place] [address] 07 Apr, 2012 [facility] [address] [id number] [place] [address] Apr, [facility] [address] [id number] [place] [address] Mar, [facility] [address] [id number] [place] [address] Mar, [facility] [address] [id number] [place] [address] Mar, [facility] [address] [id number] [place] [address] Mar, [facility] [address] [id number] [place] [address] Jan, [facility] [address] [id number] [place] [address] Jan, [facility] [address] [id number] [place] [address] Jan, [facility] [address] [id number] [place] [address] Jan, [facility] [address] [id number] [place] [address] Jan, [facility] [address] [id number] [place] [address] Jan, [facility] [address] [id number] [place] [address] Jan, [facility] [address] [id number] [place] [address] Jan, [facility] [address] [id number] [place] [address] Jan, [facility] [address] [id number] [place] [address] Jan, [facility] [address] [id number] [place] [address] Dec, [facility] [address] [id number] [place] [address] Dec, [facility] [address] [id number] [place] [address] Dec, [facility] [address] [id number] [place] [address] Nov, [facility] [address] [id number] [place] [address] Nov, [facility] [address] [id number] [place] [address] Nov, [facility] [address] [id number] [place] [address] Nov, [facility] [address] [id number] [place] [address] Oct, [facility] [address] [id number] [place] [address] Oct, IMMUNIZATIONS No Known Immunizations SOCIAL HISTORY [...] egd 01/2019 Hospitalization History surgeries Hospitalization History [facility] 06/2018 Hospitalization History [facility]- 07[facility]2018 [facility] - heart attack and rehab -03/02/2019
--- OUTSIDE RECORDS SUMMARY | 2019-07-20 17:12 | XMS REPORT ---
Author Author Sarah Ruby Doctor Organization [facility] Address Unknown Phone Unavailable Care Team Providers Care Asp Net C Developer Name Role Phone Migration, Doctor Unavailable Unavailable PROBLEMS Type Condition ICD9-CM Code RCB10-CO Code Onset Dates Condition S tatus SNOMED Code Problem Hyperlipidemia, unspecified hyperlipidemia type E7 8.5 Active 27580911 Problem Paresthesias in right hand R20.2 Act chidi 844633902 Problem Coronary artery disease invo lving [place] coronary artery of [place] heart without angina pectoris I25.10 Active 1641 995616441 Problem Essential hypertension I10 Active 18453037 Problem Neck pain M54.2 Active 84002038 Problem Type 2 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, uns pecified E11.40 Active 42489720 Problem Chronic kidney disease, unspecified CKD stage N18. 9 Active 567311594 Problem Paroxysmal atrial fibrillation I48.0 Active 422385812 Problem Other cirrhosis of liver K74.69 Activ e 07522934 Problem FDC 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 Active 230006433 Problem Chronic diastolic (congestive) heart failure I50.3 2 Active 980950860 Problem GERD (gastroesophageal reflux disease) K21.9 Active 561592523 Problem Obesity (BMI 30-39.9) E66.9 Active 397586564 Problem Chronic kidney disease, stage 3 (moderate) N18.3 Active 417411344 Problem Morbid (severe) obesity due to excess calories E66 .01 Active 793042422 Problem Type 2 diabetes mellitus with other specified complication E11.69 Active 29536320 ALLERGIES No Information ENCOUNTERS Encounter Location Date Diagnosis [facility] [address] [facility] [id number] [address] [place] [id number] 04 Jun, 2019 [facility] [address] [facility] [id number] [address] [place] [address] May, [facility] [address] [facility] [id number] [address] [place] [address] May, Other cirrhosis of liver K74 .69 and Type 2 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, unspecified whether assisted insulin use E11.40 [facility] [address] [id number] [address] [place] [address] 16 May, 2019 [facility] [address] [facility] [id number] [address] [place] [address] 12 May, 2019 Type 2 diabetes mellitus wit h other specified complication E11.69 ; Other cirrhosis of liver K74.69 ; Chronic kidney disease, stage 3 (moderate) N18.3 ; Chronic diastolic (congestive) heart failure I50.32 ; Paroxysmal atrial fibrillation I48.0 ; Morbid (severe) obesity due to excess calories E66.01 and Hyperlipidemia, unspecified hyperlipidemia type E78.5 [facility] [address] [facility] [id number] [address] [place] [address] May, [address] [id number] [address] Apr, [facility] [address] [facility] [id number] [address] [place] [address] Mar, [facility] [address] [facility] [id number] [address] [place] [address] Mar, [facility] [address] [facility] [id number] [address] [place] [address] Mar, [facility] [address] [facility] [id number] [address] [place] [phone] Mar, [facility] [address] [facility] [id number] [address] [place] [address] Mar, [address] [id number], [place] [address] Mar, [address] [id number], [place] [address] Mar, [facility] [address] [facility] [id number] [address] [place] [address] Mar, [facility] [address] [id number] [address] [place] [address] Mar, [facility] [address] [id number] [address] [place] [address] Mar, [facility] [address] [id number] [address] [place] [address] Feb, [facility] [address] [id number] [address] [place] [address] Feb, Coronary artery disease invo lving [place] coronary artery of [place] heart without angina pectoris I25.10 ; Chronic kidney disease, stage 3 (moderate) N18.3 and Morbid (severe) obesity due to excess calories E66.01 [facility] [address] [id number] [address] [place] [address] Feb, [facility] [address] [id number] [address] [place] [address] Feb, [facility] [address] [id number] [address] [place] [address] Feb, [facility] [address] [id number] [address] [place] [address] Jan, [facility] [address] [id number] [address] [place] [phone] Jan, [facility] [address] [id number] [address] [place] [address] Jan, [facility] [address] [id number] [address] [place] [address] Jan, [facility] [address] [id number] [address] [place] [address] Jan, [facility] [address] [id number] [address] [place] [address] Jan, [facility] [address] [id number] [address] [place] [address] Dec, [address] [id number] [address] Dec, [facility] [address] [id number] [address] [place] [address] Nov, [facility] [address] [id number] [address] [place] [address] Nov, [facility] [address] [facility] [id number] [address] [place] [address] Nov, [facility] [address] [id number] [address] [place] [address] Nov, [address] 340[address] [id number], [place] [address] Oct, [facility] [address] [id number] [address] [place] [address] Oct, [address] [id number], [place] [address] Sep, [facility] [address] [id number] [address] [place] [address] Sep, [facility] [address] [facility] [id number] [address] [place] [address] Aug, Type 2 diabetes mellitus wit h unspecified complications E11.8 ; FDC 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 and Obesity (BMI 30-39.9) E66.9 [facility] [address] 340[address] [id number], [place] [address] Aug, Type 2 diabetes mellitus wit hout complications E11.[address] [id number] [place] [address] Aug, Type 2 diabetes mellitus wit hout complications E11.9 [facility] [address] [id number] [address] [place] [address] Aug, [facility] [address] [id number] [place] [address] July, 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 and Type 2 diabetes mellitus with unspecified complications E11.8 [facility] [address] [id number] [place] [address] July, Screening mammogram, encount er for Z12.31 [facility] [address] [id number] [address] [place] [address] July, [facility] [address] [facility] [id number] [address] [place] [address] July, Paroxysmal atrial fibrillati on I48.0 and Coronary artery disease involving [place] coronary artery of [place] heart without angina pectoris I25.10 [facility] [address] [id number] [address] [place] [address] Jun, [facility] [address] [id number] [address] [place] [address] Jun, [facility] [address] [facility] [id number] [address] [place] [address] May, [facility] [address] [id number] [address] [place] [address] May, Type 2 diabetes mellitus wit h unspecified complications E11.8 ; 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 ; Leg cramps R25.2 ; Essential hypertension I10 and Routine adult health maintenance Z00.00 [facility] [address] [id number] [address] [place] [address] 07 Apr, 2018 [facility] [address] [id number] [address] [place] [address] Apr, [facility] [address] [facility] [id number] [address] [place] [address] Mar, Type 2 diabetes mellitus wit hout complications E11.9 [facility] [address] [id number] [address] [place] [address] Mar, Type 2 diabetes mellitus wit hout complications E11.9 [facility] [address] [facility] [id number] [address] [place] [address] Mar, Type 2 diabetes mellitus wit hout complications E11.9 [facility] [address] [id number] [address] [place] [address] Feb, Essential (primary) hyperten sofie I10 [facility] [address] [id number] [address] [place] [address] Feb, [facility] [address] [facility] [id number] [address] [place] [address] Jan, Type 2 diabetes mellitus wit hout complications E11.9 [facility] [address] [facility] [id number] [address] [place] [address] 30 Dec, 2017 [facility] [address] [facility] [id number] [address] [place] [address] Dec, Type 2 diabetes mellitus wit h diabetic neuropathy, unspecified E11.40 ; FDC 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 and Chronic kidney disease, unspecified CKD stage N18.9 [facility] [address] [facility] [id number] [address] [place] [address] 15 Dec, 2017 Type 2 diabetes mellitus wit hout complications E11.9 [facility] [address] [facility] [id number] [address] [place] [address] Dec, [facility] [address] [facility] [id number] [address] [place] [address] Dec, Type 2 diabetes mellitus wit hout complications E11.9 [facility] [address] [id number] [address] [place] [address] Dec, [facility] [address] [facility] [id number] [address] [place] [address] Oct, [facility] [address] [facility] [id number] [address] [place] [address] Sep, [facility] [address] [facility] [id number] [address] [place] [address] Aug, [facility] [address] [facility] [id number] [address] [place] [address] 11 Aug, 2017 Exposure to hepatitis C Z20. 5 and Routine adult health maintenance Z00.00 [facility] [address] [facility] [id number] [address] [place] [address] 11 Aug, 2017 Exposure to hepatitis C Z20. 5 [facility] [address] [facility] [id number] [address] [place] [address] 11 Aug, 2017 Medicare annual wellness vis it, initial Z00.00 ; Coronary artery disease involving [place] coronary artery of [place] heart without angina pectoris I25.10 ; Hyperlipidemia, unspecified hyperlipidemia type E78.5 ; Essential hypertension I10 ; GERD (gastroesophageal reflux disease) K21.9 ; Routine adult health maintenance Z00.00 ; Encounter for immunization Z23 ; Type 2 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, unspecified E11.40 and FDC 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 [facility] [address] [facility] [id number] [address] [place] [address] 30 Jul, 2017 Type 2 diabetes mellitus wit hout complications E11.9 and Type 2 diabetes mellitus without complications E11.9 [facility] [address] [id number] [address] [place] [address] July, [facility] [address] [facility] [id number] [address] [place] [address] July, [facility] [address] [facility] [id number] [address] [place] [address] Mar, Type 2 diabetes mellitus wit hout complications E11.9 [facility] [address] [id number] [address] [place] [id number] 08 Mar, 2017 [facility] [address] [id number] [address] [place] [address] Feb, Type 2 diabetes mellitus wit hout complications E11.9 [facility] [address] [id number] [address] [place] [address] 16 Jan, 2017 Type 2 diabetes mellitus wit hout complications E11.9 [facility] [address] [facility] [id number] [address] [place] [address] Jan, Type 2 diabetes mellitus wit hout complications E11.9 [facility] [address] [facility] [id number] [address] [place] [address] Nov, [facility] [address] [facility] [id number] [address] [place] [id number] 16 Oct, 2016 Type 2 diabetes mellitus wit hout complications E11.9 [facility] [address] [facility] [id number] [address] [place] [address] Oct, Type 2 diabetes mellitus wit hout complications E11.9 ; Essential hypertension I10 and Neck pain M54.2 [facility] [address] [facility] [id number] [address] [place] [address] Sep, [facility] [address] [facility] [id number] [address] [place] [address] Aug, Type 2 diabetes mellitus wit hout complications E11.9 [facility] [address] [facility] [id number] [address] [place] [address] Jun, Type 2 diabetes mellitus wit hout complications E11.9 ; Neck pain M54.2 and Essential hypertension I10 [facility] [address] [facility] [id number] [address] [place] [address] 17 Jun, 2016 [facility] [address] [facility] [id number] [address] [place] [address] 14 Jun, 2016 [facility] [address] [facility] [id number] [address] [place] [address] 10 Jun, 2016 GERD (gastroesophageal reflu x disease) K21.9 and Type 2 diabetes mellitus without complications E11.9 [facility] [address] [facility] [id number] [address] [place] [address] Mar, Paresthesias in right hand R 20.2 [facility] [address] [facility] [id number] [address] [place] [address] Feb, Type 2 diabetes mellitus wit hout complications E11.9 [facility] [address] [id number] [address] [place] [id number] Feb, Encounter for dental examina tion Z01.20 [facility] [address] [id number] [address] [place] [address] Feb, Type 2 diabetes mellitus wit hout complications E11.9 and Neck pain M54.2 [facility] [address] [id number] [address] [place] [address] Feb, Type 2 diabetes mellitus wit hout complications E11.9 [facility] [address] [id number] [address] [place] [id number] Jan, Dental examination Z01.20 [facility] [address] [id number] [address] [place] [address] Jan, [facility] [address] [id number] [address] [place] [address] Jan, [facility] [address] [id number] [address] [place] [id number] Dec, Dental caries K02.9 [facility] [address] [id number] [address] [place] [address] Nov, [facility] [address] [id number] [address] [place] [address] Nov, [facility] [address] [id number] [address] [place] [address] Oct, Type 2 diabetes mellitus wit hout complications E11.9 ; Neck pain M54.2 and Essential hypertension I10 [facility] [address] [id number] [address] [place] [address] Oct, [facility] [address] [id number] [address] [place] [address] [id number] Oct, Dental examination Z01.20 [facility] [address] [id number] [address] [place] [address] Sep, [facility] [address] [id number] [address] [place] [address] Sep, [facility] [address] [facility] [id number] [address] [place] [address] Aug, Essential (primary) hyperten sofie I10 [facility] [address] [id number] [address] [place] [address] Aug, [facility] [address] [facility] [id number] [address] [place] [address] Aug, [facility] [address] [facility] [id number] [address] [place] [address] July, Essential (primary) hyperten sofie I10 [facility] [address] [facility] [id number] [address] [place] [address] July, Essential (primary) hyperten sofie I10 and Type 2 diabetes mellitus without complications E11.9 [facility] [address] [facility] [id number] [address] [place] [address] July, [facility] [address] [facility] [id number] [address] [place] [phone] Jun, GERD (gastroesophageal reflu x disease) K21.9 [facility] [address] [facility] [id number] [address] [place] [address] Jun, GERD (gastroesophageal reflu x disease) K21.9 [facility] [address] [facility] [id number] [address] [place] [address] Jun, [facility] [address] [facility] [id number] [address] [place] [address] Jun, Neuropathy G62.9 [facility] [address] [facility] [id number] [address] [place] [address] May, Essential (primary) hyperten sofie I10 [facility] [address] [facility] [id number] [address] [place] [address] May, Bronchitis J40 [facility] [address] [facility] [id number] [address] [place] [address] 15 May, 2015 Type 2 diabetes mellitus wit hout complications E11.9 and Essential (primary) hypertension I10 [facility] [address] [facility] [id number] [address] [place] [address] 10 May, 2015 [facility] [address] [facility] [id number] [address] [place] [address] 10 May, 2015 GERD (gastroesophageal reflu x disease) K21.9 [facility] [address] [facility] [id number] [address] [place] [address] 25 Apr, 2015 Other and unspecified hyperl ipidemia 272.4 ; Unspecified essential hypertension 401.9 ; Type 2 diabetes mellitus without complications E11.9 ; Neck pain M54.2 and Paresthesias in right hand R20.2 [facility] [address] [place] [id number] [address] [place] [id number] 11 Apr, 2015 [facility] [address] [place] [id number] [place] [address] Apr, Neuropathy G62.9 [facility] [address] [place] [id number] [address] [place] [phone] Mar, [facility] [address] [place] [id number] [place] [address] Feb, [facility] [address] [place] [id number] [address] [place] [address] Jan, [facility] [address] [place] [id number] [address] [place] [address] Dec, [facility] [address] [place] [id number] [address] [place] [address] Dec, Type 2 diabetes mellitus wit hout complications E11.9 ; Encounter for immunization Z23 and Neck pain M54.2 [facility] [address] [facility] [id number] [address] [place] [address] 09 Dec, 2014 [facility] [address] [place] [id number] [address] [place] [phone] Nov, [facility] [address] [id number] [address] [place] [id number] Nov, [facility] [address] [id number] [address] [place] [address] Oct, [facility] [address] [id number] [address] [place] [address] Oct, [facility] [address] [id number] [address] [place] [id number] Sep, [facility] [address] [id number] [address] [place] [address] Sep, Coronary atherosclerosis of unspecified type of vessel, [place] or graft 414.00 ; Diabetes mellitus without mention of complication, type II or unspecified type, not stated as uncontrolled 250.00 ; Hyperlipidemia 272.4 and HTN (hypertension) 401.9 [facility] [address] [id number] [address] [place] [address] Aug, [facility] [address] [id number] [address] [place] [address] July, [facility] [address] [id number] [address] [place] [address] Jun, [facility] [address] [id number] [address] [place] [address] Jun, [facility] [address] [id number] [address] [place] [id number] May, [facility] [address] [id number] [address] [place] [phone] May, [facility] [address] [id number] [address] [place] [id number] May, [facility] [address] [id number] [address] [place] [phone] May, [facility] [address] [id number] [address] [place] [phone] Apr, [facility] [address] [id number] [address] [place] [address], [place] [id number] Apr, [facility] [address] [id number] [address] [place] [address], [place] [id number] Apr, [facility] [address] [id number] [address] [place] [address], [place] [phone] Apr, 2014 [facility] [address] [id number] [address] [place] [address], [place] [id number] Apr, 2014 [facility] [address] [id number] [address] [place] [address], [place] [id number] Apr, [facility] [address] [id number] [address] [place] [address], [place] [id number] Apr, [facility] [address] [id number] [address] [place] [address], [place] [id number] Apr, [facility] [address] [id number] [address] [place] [address], [place] [id number] Mar, [facility] [address] [id number] [address] [place] [address], [place] [id number] Mar, [facility] [address] [id number] [address] [place] [address], [place] [id number] Mar, [facility] [address] [id number] [address] [place] [address], [place] [address] Mar, [facility] [address] [id number] [address] [place] [address] Mar, [facility] [address] [id number] [address] [place] [address], [place] [address] Mar, [facility] [address] [id number] [address] [place] [address], [place] [address] Mar, [facility] [address] [id number] [address] [place] [address], [place] [address] Mar, [facility] [address] [id number] [address] [place] [address], [place] [address] Feb, [facility] [address] [id number] [address] [place] [address], [place] [address] Feb, [facility] [address] [id number] [address] [place] [address], [place] [address] Feb, [facility] [address] [id number] [address] [place] [address], [place] [address] Feb, [facility] [address] [id number] [address] [place] [address], [place] [address] Feb, [facility] [address] [id number] [address] [place] [address], [place] [address] Feb, [facility] [address] [id number] [address] [place] [address], [place] [address] Feb, [facility] [address] [id number] [address] [place] [address], [place] [address] Feb, [facility] [address] [id number] [address] [place] [address], [place] [address] Feb, [facility] [address] [id number] [address] [place] [address], [place] [address] Feb, [facility] [address] [id number] [address] [place] [address], [place] [address] Jan, [facility] [address] [id number] [address] [place] [address], [place] [address] Jan, [facility] [address] [id number] [address] [place] [address], [place] [address] Dec, [facility] [address] [id number] [address] [place] [address], [place] [address] Dec, [facility] [address] [id number] [address] [place] [address], [place] [address] Dec, [facility] [address] [id number] [address] [place] [address], [place] [address] Dec, [facility] [address] [id number] [address] [place] [address], [place] [address] Nov, [facility] [address] [id number] [address] [place] [address], [place] [address] Nov, [facility] [address] [id number] [address] [place] [address], [place] [address] Nov, [facility] [address] [id number] [address] [place] [address], [place] [address] Nov, [facility] [address] [id number] [address] [place] [address], [place] [address] Oct, [facility] [address] [id number] [address] [place] [address], [place] [address] Oct, [facility] [address] [id number] [address] [place] [address], [place] [address] Oct, [facility] [address] [id number] [address] [place] [address], [place] [address] Oct, [facility] [address] [id number] [address] [place] [address], [place] [address] Oct, [facility] [address] [id number] [address] [place] [address], [place] [address] Sep, [facility] [address] [id number] [address] [place] [address], [place] [address] Sep, [facility] [address] [id number] [address] [place] [address], [place] [address] Sep, [facility] [address] [id number] [address] [place] [address], [place] [address] Sep, [facility] [address] [id number] [address] [place] [address], [place] [address] Sep, [facility] [address] [id number] [address] [place] [address], [place] [address] Sep, [facility] [address] [id number] [address] [place] [address], [place] [address] Aug, [facility] [address] [id number] [address] [place] [address], [place] [address] Aug, [facility] [address] [id number] [address] [place] [address], [place] [address] Aug, [facility] [address] [id number] [address] [place] [address], [place] [address] Aug, [facility] [address] [id number] [address] [place] [address], [place] [address] Aug, [facility] [address] [id number] [address] [place] [address], [place] [address] Aug, [facility] [address] [id number] [address] [place] [address], [place] [address] July, [facility] [address] [id number] [address] [place] [address], [place] [address] July, [facility] [address] [id number] [address] [place] [address], [place] [address] Jun, [facility] [address] [id number] [address] [place] [address], [place] [address] Jun, [facility] [address] [id number] [address] [place] [address], [place] [address] May, [facility] [address] [id number] [address] [place] [address], [place] [address] May, [facility] [address] [id number] [address] [place] [phone] May, [facility] [address] [id number] [address] [place] [address], [place] [address] May, [facility] [address] [id number] [address] [place] [address], [place] [address] Apr, [facility] [address] [id number] [address] [place] [address], [place] [address] Apr, [facility] [address] [id number] [address] [place] [address], [place] [address] 10 Apr, 2013 [facility] [address] [id number] [address] [place] [address], [place] [address] Apr, 2013 [facility] [address] [id number] [address] [place] [address], [place] [address] Apr, 2013 [facility] [address] [id number] [address] [place] [address], [place] [address] Apr, 2013 [facility] [address] [id number] [address] [place] [address], [place] [address] Feb, [facility] [address] [id number] [address] [place] [address], [place] [address] Feb, [facility] [address] [id number] [address] [place] [address], [place] [address] Feb, [facility] [address] [id number] [address] [place] [address], [place] [address] Feb, [facility] [address] [id number] [address] [place] [address], [place] [address] Jan, [facility] [address] [id number] [address] [place] [address], [place] [address] Jan, [facility] [address] [id number] [address] [place] [address], [place] [address] 14 Dec, 2012 [facility] [address] [id number] [address] [place] [address], [place] [address] Dec, [facility] [address] [id number] [address] [place] [address], [place] [address] Dec, [facility] [address] [id number] [address] [place] [address], [place] [address] Dec, [facility] [address] [id number] [address] [place] [address], [place] [address] Oct, [facility] [address] [id number] [address] [place] [id number] Oct, [facility] [address] [id number] [facility] [id number] Oct, [facility] [address] [id number] [address] [place] [address], [place] [address] Oct, [facility] [address] [id number] [address] [place] [address], [place] [address] Sep, [facility] [address] [id number] [address] [place] [address], [place] [address] Sep, [facility] [address] [id number] [address] [place] [address], [place] [address] Aug, [facility] [address] [id number] [address] [place] [address], [place] [address] Aug, [facility] [address] [id number] [address] [place] [address], [place] [address] Aug, [facility] [address] [id number] [address] [place] [address], [place] [address] Aug, [facility] [address] [id number] [address] [place] [address], [place] [address] July, [facility] [address] [id number] [address] [place] [address], [place] [address] Jun, [facility] [address] [id number] [address] [place] [address], [place] [address] May, [facility] [address] [id number] [address] [place] [address], [place] [address] May, [facility] [address] [id number] [address] [place] [address], [place] [address] May, [facility] [address] [id number] [address] [place] [address], [place] [address] May, [facility] [address] [id number] [address] [place] [address], [place] [address] May, [facility] [address] [id number] [address] [place] [address], [place] [address] Apr, [facility] [address] [id number] [address] [place] [address], [place] [address] Apr, [facility] [address] [id number] [address] [place] [address], [place] [address] 07 Apr, 2012 [facility] [address] [id number] [address] [place] [address], [place] [address] Apr, [facility] [address] [id number] [address] [place] [address], [place] [address] Mar, [facility] [address] [id number] [address] [place] [address], [place] [address] Mar, [facility] [address] [id number] [address] [place] [address], [place] [address] Mar, [facility] [address] [id number] [address] [place] [address], [place] [address] Mar, [facility] [address] [id number] [address] [place] [address], [place] [address] Jan, [facility] [address] [id number] [address] [place] [address], [place] [address] Jan, [facility] [address] [id number] [address] [place] [address], [place] [address] 15 Jan, 2012 [facility] [address] [id number] [address] [place] [address], [place] [address] Jan, [facility] [address] [id number] [address] [place] [address], [place] [address] Jan, [facility] [address] [id number] [address] [place] [address], [place] [address] Jan, [facility] [address] [id number] [address] [place] [address], [place] [address] Jan, [facility] [address] [id number] [address] [place] [address], [place] [address] Jan, [facility] [address] [id number] [address] [place] [address] Jan, [facility] [address] [id number] [address] [place] [phone] Jan, [facility] [address] [id number] [address] [place] [address] Dec, [facility] [address] [id number] [address] [place] [address] Dec, [facility] [address] [id number] [address] [place] [address] Dec, [facility] [address] [id number] [address] [place] [phone] Nov, [facility] [address] [id number] [address] [place] [address] Nov, [facility] [address] [id number] [address] [place] [address] Nov, [facility] [address] [id number] [address] [place] [address] Nov, [facility] [address] [id number] [address] [place] [id number] Oct, [facility] [address] [id number] [address] [place] [phone] Oct, IMMUNIZATIONS No Known Immunizations SOCIAL HISTORY [...] surgeries Hospitalization History [facility] 06/2018 Hospitalization History [facility]- 07/2018 Hospitalization History jeny/[facility]tis/research Brittnee/ daljit [facility] - heart attack and rehab 03/02/2019
--- OUTSIDE RECORDS SUMMARY | 2019-07-20 17:13 | XMS REPORT ---
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 Name Role Phone GEE AMADO Unavailable PROBLEMS Type Condition ICD9-CM Code MJB75-VQ Code Onset Dates Condition S tatus SNOMED Code Problem Hyperlipidemia, unspecified hyperlipidemia type E7 8.5 Active 90351046 Problem Paresthesias in right hand R20.2 Act chidi [id number] Problem Coronary artery disease invo lving [place] coronary artery of [place] heart without angina pectoris I25.10 Active 1641 [id number] Problem Essential hypertension I10 Active 61286092 Problem Neck pain M54.2 Active 17116572 Problem Type 2 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, uns pecified E11.40 Active 11323703 Problem Chronic kidney disease, unspecified CKD stage N18. 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 Active 345902572 Problem Chronic diastolic (congestive) heart failure I50.3 2 Active 664714231 Problem GERD (gastroesophageal reflux disease) K21.9 Active 009168405 Problem Obesity (BMI 30-39.9) E66.9 Active 148857672 Problem Chronic kidney disease, stage 3 (moderate) N18.3 Active 712810201 Problem Morbid (severe) obesity due to excess calories E66 .01 Active 996965857 Problem Type 2 diabetes mellitus with other specified complication E11.69 Active 85069479 ALLERGIES No Information ENCOUNTERS Encounter Location Date Diagnosis [facility] [address] [id number] [place] [address] May, [facility] [place] [address] [facility] [place] [address] May, Type 2 diabetes mellitus with other spec ified complication E11.69 ; Other cirrhosis of liver K74.69 ; Chronic kidney disease, stage 3 (moderate) N18.3 ; Chronic diastolic (congestive) heart failure I50.32 ; Paroxysmal atrial fibrillation I48.0 ; Morbid (severe) obesity due to excess calories E66.01 and Hyperlipidemia, unspecified hyperlipidemia type E78.5 [facility] [place] [address] [facility] [place] [address] May, [address] [place] [address] Apr, [facility] [place] [id number] [place] [address] Mar, [facility] [place] [id number] [place] [address] Mar, [facility] [place] [id number] [place] [address] Mar, [facility] [place] [id number] [place] [address] Mar, [facility] [place] [address] [id number] [place] [address] Mar, [address] [place] [address] Mar, [address] [place] [address] Mar, [facility] [place] [id number] [place] [address] Mar, [facility] [place] [address] [id number] [place] [address] Mar, [facility] [place] [address] [id number] [place] [address] Mar, [facility] [place] [id number] [place] [address] Feb, [facility] [place] [id number] [place] [address] Feb, Coronary artery disease involving [place] coronary artery of [place] heart without angina pectoris I25.10 ; Chronic kidney disease, stage 3 (moderate) N18.3 and Morbid (severe) obesity due to excess calories E66.01 [facility] [place] [id number] [place] [address] Feb, [facility] [place] [address] [facility] [place] [address] Feb, [facility] [place] [id number] [place] [address] Feb, [facility] [address] [facility] [place] [address] Jan, [facility] [place] [id number] [place] [address] Jan, [facility] [place] [id number] [place] [address] Jan, [facility] [place] [id number] [place] [address] Jan, [facility] [address] [facility] [place] [address] Jan, [facility] [place] [id number] [place] [address] Jan, [facility] [place] [id number] [place] [address] Dec, [address] [place] [address] Dec, [facility] [id number] [place] [address] Nov, [facility] [id number] [place] [address] Nov, [facility] [id number] [place] [address] Nov, [facility] [id number] [place] [address] Nov, [address] [place] [address] Oct, [facility] [place] [address] [facility] [place] [address] Oct, [address] [place] [address] Sep, [facility] [place] [address] [facility] [place] [address] Sep, [facility] [place] [id number] [place] [address] Aug, Type 2 diabetes mellitus with unspecifie d complications E11.8 ; longterm 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 and Obesity (BMI 30-39.9) E66.9 [address] [place] [address] Aug, Type 2 diabetes mellitus wit hout complications E11.9 [address] [place] [address] Aug, Type 2 diabetes mellitus wit hout complications E11.9 [address] [facility] [place] [address] Aug, [address] [place] [address] July, 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 and Type 2 diabetes mellitus with unspecified complications E11.8 [address] [place] [address] July, Screening mammogram, encount er for Z12.31 [address] [facility] [place] [address] July, [address] [address] July, Paroxysmal atrial fibrillation I48.0 and Coronary artery disease involving [place] coronary artery of [place] heart without angina pectoris I25.10 [facility] [place] [id number] [place] [address] Jun, [facility] [place] [address] [address] Jun, [facility] [place] [address] [address] May, [facility] [place] [address] [address] May, Type 2 diabetes mellitus with unspecifie d complications E11.8 ; longterm 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 ; Leg cramps R25.2 ; Essential hypertension I10 and Routine adult health maintenance Z00.00 [facility] [place] [address] [address] 07 Apr, 2018 [facility] [place] [address] [address] Apr, [facility] [place] [address] [address] Mar, Type 2 diabetes mellitus without complic ations E11.9 [facility] [place] [address] [address] Mar, Type 2 diabetes mellitus without complic ations E11.9 [facility] [place] [address] [address] Mar, Type 2 diabetes mellitus without complic ations E11.9 [address] [address] Feb, Essential (primary) hypertension I10 [facility] [place] [address] [address] Feb, [facility] [place] [address] [address] Jan, Type 2 diabetes mellitus without complic ations E11.9 [facility] [place] [address] [address] Dec, [facility] [place] [address] [address] Dec, Type 2 diabetes mellitus with diabetic n europathy, unspecified E11.40 ; longterm 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 and Chronic kidney disease, unspecified CKD stage N18.9 [address] [address] 15 Dec, 2017 Type 2 diabetes mellitus without complic ations E11.9 [address] [address] 10 Dec, 2017 [address] [address] 09 Dec, 2017 Type 2 diabetes mellitus without complic ations E11.9 [address] [address] 08 Dec, 2017 [address] [address] Oct, [address] [address] Sep, [address] [address] Aug, [address] [address] Aug, Exposure to hepatitis C Z20.5 and Routin e adult health maintenance Z00.00 [address] [address] Aug, Exposure to hepatitis C Z20.5 [address] [address] Aug, Medicare annual wellness visit, initial Z00.00 ; Coronary artery disease involving [place] coronary artery of [place] heart without angina pectoris I25.10 ; Hyperlipidemia, unspecified hyperlipidemia type E78.5 ; Essential hypertension I10 ; GERD (gastroesophageal reflux disease) K21.9 ; Routine adult health maintenance Z00.00 ; Encounter for immunization Z23 ; Type 2 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, unspecified E11.40 and 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 [address] [address] July, Type 2 diabetes mellitus without complic ations E11.9 and Type 2 diabetes mellitus without complications E11.9 [facility] [place] [id number] [place] [address] July, [facility] [place] [id number] [place] [address] July, [facility] [place] [address] [address] Mar, Type 2 diabetes mellitus without complic ations E11.9 [facility] [place] [address] [address] Mar, [facility] [place] [address] [address] Feb, Type 2 diabetes mellitus without complic ations E11.9 [facility] [place] [address] [address] Jan, Type 2 diabetes mellitus without complic ations E11.9 [facility] [id number] [place] [address] Jan, Type 2 diabetes mellitus without complic ations E11.9 [facility] [place] [id number] [place] [address] Nov, [facility] [place] [address] [address] Oct, Type 2 diabetes mellitus without complic ations E11.9 [facility] [place] [address] [address] Oct, Type 2 diabetes mellitus without complic ations E11.9 ; Essential hypertension I10 and Neck pain M54.2 [facility] [place] [id number] [place] [address] Sep, [facility] [place] [address] [address] Aug, Type 2 diabetes mellitus without complic ations E11.9 [facility] [place] [address] [address] 20 Jun, 2016 Type 2 diabetes mellitus without complic ations E11.9 ; Neck pain M54.2 and Essential hypertension I10 [facility] [place] [address] [address] 17 Jun, 2016 [facility] [place] [address] [address] 14 Jun, 2016 [facility] [place] [address] [address] 10 Jun, 2016 GERD (gastroesophageal reflux disease) K 21.9 and Type 2 diabetes mellitus without complications E11.9 [address] [address] Mar, Paresthesias in right hand R20.2 [address] [address] [address] Feb, Type 2 diabetes mellitus without complic ations E11.9 [facility] [address] [id number] Feb, Encounter for dental examination Z01.20 [facility] [place] [address] [address] 09 Feb, 2016 Type 2 diabetes mellitus without complic ations E11.9 and Neck pain M54.2 [address] [address] Feb, Type 2 diabetes mellitus without complic ations E11.9 [facility] [address] [id number] Jan, Dental examination Z01.20 [facility] [place] [address] [address] Jan, [facility] [place] [address] [address] Jan, [facility] [address] [id number] Dec, Dental caries K02.9 [facility] [id number] [place] [address] 30 Nov, 2015 [facility] [address] [address] Nov, [facility] [place] [address] [address] Oct, Type 2 diabetes mellitus without complic ations E11.9 ; Neck pain M54.2 and Essential hypertension I10 [facility] [place] [id number] [place] [address] Oct, [facility] [id number] [place] [id number] Oct, Dental examination Z01.20 [facility] [id number] [place] [address] Sep, [facility] [place] [address] [address] Sep, [facility] [place] [address] [address] Aug, Essential (primary) hypertension I10 [facility] [place] [address] [address] Aug, [facility] [place] [address] [address] Aug, [facility] [place] [address] [address] July, Essential (primary) hypertension I10 [facility] [place] [address] [address] July, Essential (primary) hypertension I10 and Type 2 diabetes mellitus without complications E11.9 [facility] [place] [address] [address] July, [facility] [place] [address] [address] 14 Jun, 2015 GERD (gastroesophageal reflux disease) K 21.9 [facility] [place] [address] [address] Jun, GERD (gastroesophageal reflux disease) K 21.9 [facility] [place] [id number] [place] [address] Jun, [facility] [place] [address] [address] Jun, Neuropathy G62.9 [facility] [place] [address] [address] May, Essential (primary) hypertension I10 [facility] [address] [facility] [id number] [place] [address] May, Bronchitis J40 [facility] [place] [address] [address] 15 May, 2015 Type 2 diabetes mellitus without complic ations E11.9 and Essential (primary) hypertension I10 [facility] [place] [id number] [place] [address] May, [facility] [address] [address] May, GERD (gastroesophageal reflux disease) K 21.9 [facility] [place] [address] [address] Apr, Other and unspecified hyperlipidemia 272 .4 ; Unspecified essential hypertension 401.9 ; Type 2 diabetes mellitus without complications E11.9 ; Neck pain M54.2 and Paresthesias in right hand R20.2 [facility] [place] [address] [address] Apr, [facility] [place] [address] [address] Apr, Neuropathy G62.9 [facility] [place] [address] [address] Mar, [facility] [place] [address] [address] Feb, [facility] [address] [address] Jan, [facility] [address] [address] Dec, [facility] [address] [address] Dec, Type 2 diabetes mellitus without complic ations E11.9 ; Encounter for immunization Z23 and Neck pain M54.2 [facility] [address] [address] Dec, [facility] [address] [address] Nov, [facility] [place] [address] [address] Nov, [facility] [place] [address] [address] Oct, [facility] [address] [address] Oct, [facility] [address] [address] Sep, [facility] [address] [address] Sep, Coronary atherosclerosis of unspecified type of vessel, [place] or graft 414.00 ; Diabetes mellitus without mention of complication, type II or unspecified type, not stated as uncontrolled 250.00 ; Hyperlipidemia 272.4 and HTN (hypertension) 401.9 [facility] [address] [address] Aug, [facility] [address] [address] July, [facility] [address] [address] Jun, [facility] [address] [address] Jun, [facility] [address] [address] May, [facility] [address] [facility] [place] [address] May, [facility] [address] [id number] [facility] [place] [address] May, [facility] [address] [id number] [place] [address] May, [facility] [address] [id number] [place] [address] Apr, [facility] [address] [facility] [id number] [facility] [place] [address] Apr, [facility] [address] [id number] [place] [address] Apr, [facility] [address] [id number] [place] [address] Apr, [facility] [address] [id number] [place] [address] Apr, [facility] [address] [id number] [place] [address] Apr, [facility] [address] [id number] [place] [address] Apr, [facility] [address] [id number] [place] [address] Apr, [facility] [address] [id number] [place] [address] Mar, [facility] [address] [id number] [place] [address] Mar, [facility] [address] [id number] [place] [address] Mar, [facility] [address] [id number] [place] [address] Mar, [facility] [address] [id number] [place] [address] Mar, [facility] [address] [id number] [place] [address] Mar, [facility] [address] [id number] [place] [address] Mar, [facility] [address] [id number] [place] [address] Mar, [facility] [address] [id number] [place] [address] Feb, [facility] [address] [id number] [place] [address] Feb, [facility] [address] [id number] [place] [address] Feb, [facility] [address] [id number] [place] [address] Feb, [facility] [address] [id number] [place] [address] Feb, [facility] [address] [id number] [place] [address] Feb, [facility] [address] [id number] [place] [address] Feb, [facility] [address] [id number] [place] [address] Feb, [facility] [address] [id number] [place] [address] Feb, [facility] [address] [id number] [place] [address] Feb, [facility] [address] [id number] [place] [address] Jan, [facility] [address] [id number] [place] [address] Jan, [facility] [address] [id number] [place] [address] Dec, [facility] [address] [id number] [place] [address] Dec, [facility] [address] [facility] [id number] [place] [address] Dec, [facility] [address] [id number] [place] [address] Dec, [facility] [address] [id number] [place] [address] Nov, [facility] [address] [id number] [place] [address] Nov, [facility] [address] [facility] [id number] [place] [address] Nov, [facility] [address] [id number] [place] [address] Nov, [facility] [address] [id number] [place] [address] Oct, [facility] [address] [id number] [place] [address] Oct, [facility] [address] [id number] [place] [address] Oct, [facility] [address] [id number] [place] [address] Oct, [facility] [address] [id number] [place] [address] Oct, [facility] [address] [id number] [place] [address] Sep, [facility] [address] [id number] [place] [address] Sep, 2013 [facility] [address] [id number] [place] [address] Sep, [facility] [address] [id number] [place] [address] Sep, 2013 [facility] [address] [id number] [place] [address] Sep, 2013 [facility] [address] [id number] [place] [address] Sep, [facility] [address] [facility] [id number] [place] [address] Aug, [facility] [address] [facility] [id number] [place] [address] Aug, [facility] [address] [id number] [place] [address] Aug, [facility] [address] [id number] [place] [address] Aug, [facility] [address] [facility] [id number] [place] [address] Aug, [facility] [address] [id number] [place] [address] Aug, [facility] [address] [id number] [place] [address] July, [facility] [address] [id number] [place] [address] July, [facility] [address] [id number] [place] [address] Jun, [facility] [address] [id number] [place] [address] Jun, [facility] [address] [id number] [place] [address] May, [facility] [address] [id number] [place] [address] May, [facility] [address] [id number] [place] [address] May, [facility] [address] [id number] [place] [address] May, [facility] [address] [id number] [place] [address] Apr, [facility] [address] [id number] [place] [address] Apr, [facility] [address] [id number] [place] [address] 10 Apr, 2013 [facility] [id number] [place] [address] Apr, 2013 [facility] [address] [id number] [place] [address] Apr, [facility] [id number] [place] [address] Apr, [facility] [id number] [place] [address] Feb, [facility] [id number] [place] [address] Feb, [facility] [id number] [place] [address] Feb, [facility] [id number] [place] [address] Feb, [facility] [id number] [place] [address] Jan, [facility] [id number] [place] [address] Jan, [facility] [id number] [place] [address] Dec, [facility] [id number] [place] [address] Dec, [facility] [id number] [place] [address] Dec, [facility] [id number] [place] [address] Dec, [facility] [id number] [place] [address] Oct, [facility] [address] [id number] [place] [id number] Oct, [facility] [address] [id number] [place] [id number] Oct, [facility] [address] [id number] [place] [address] Oct, [facility] [address] [id number] [place] [address] Sep, [facility] [address] [id number] [place] [address] Sep, [facility] [address] [id number] [place] [address] Aug, [facility] [address] [id number] [place] [address] Aug, [facility] [address] [id number] [place] [address] Aug, [facility] [address] [id number] [place] [address] Aug, [facility] [address] [id number] [place] [address] July, [facility] [address] [id number] [place] [address] Jun, [facility] [address] [id number] [place] [address] May, [facility] [address] [id number] [place] [address] May, [facility] [address] [id number] [place] [address] May, [facility] [address] [id number] [place] [address] May, [facility] [address] [id number] [place] [address] May, [facility] [address] [id number] [place] [address] Apr, [facility] [address] [id number] [place] [address] Apr, [facility] [address] [id number] [place] [address] 07 Apr, 2012 [facility] [address] [id number] [place] [address] Apr, [facility] [address] [id number] [place] [address] Mar, [facility] [address] [id number] [place] [address] Mar, [facility] [address] [id number] [place] [address] Mar, [facility] [address] [id number] [place] [address] Mar, [facility] [address] [id number] [place] [address] Jan, [facility] [address] [id number] [place] [address] Jan, [facility] [id number] [place] [address] Jan, [facility] [address] [id number] [place] [address] Jan, [facility] [address] [id number] [place] [address] Jan, [facility] [address] [id number] [place] [address] Jan, [facility] [address] [id number] [place] [address] Jan, [facility] [address] [id number] [place] [address] Jan, [facility] [id number] [place] [address] Jan, [facility] [address] [id number] [place] [address] Jan, [facility] [address] [id number] [place] [address] Dec, [facility] [place] [address] [id number] [place] [address] Dec, [facility] [place] [address] [id number] [place] [address] Dec, [facility] [place] [address] [id number] [place] [address] Nov, [facility] [place] [id number] [place] [address] Nov, [facility] [place] [id number] [place] [address] Nov, [facility] [place] [id number] [place] [address] Nov, [facility] [place] [address] [id number] [place] [address] Oct, [facility] [place] [address] [id number] [place] [address] Oct, IMMUNIZATIONS No Known Immunizations SOCIAL HISTORY [...] egd 01/2019 Hospitalization History surgeries Hospitalization History [place] 06/2018 Hospitalization History [facility]- 07[facility]2018 Hospital[facility] [place] [facility] - heart attack and rehab -03/02/2019
--- OUTSIDE RECORDS SUMMARY | 2019-07-20 17:13 | XMS REPORT ---
Author Author Sarah AMADO Organization [facility] Address [address] [place] [address] Care Team Providers Care Building Cleaning Supervisor Name Role Phone GEE AMADO Unavailable PROBLEMS Type Condition ICD9-CM Code VDG10-ES Code Onset Dates Condition S tatus SNOMED Code Problem Hyperlipidemia, unspecified hyperlipidemia type E7 8.5 Active 71282122 Problem Paresthesias in right hand R20.2 Act chidi 726197810 Problem Coronary artery disease invo lving napaimute coronary artery of napaimute heart without angina pectoris I25.10 Active 1641 [id number] Problem Essential hypertension I10 Active 71943745 Problem Neck pain M54.2 Active 21211253 Problem Type 2 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, uns pecified E11.40 Active 39545535 Problem Chronic kidney disease, unspecified CKD stage N18. 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 Active 092183619 Problem Chronic diastolic (congestive) heart failure I50.3 2 Active 861120523 Problem GERD (gastroesophageal reflux disease) K21.9 Active 967802238 Problem Obesity (BMI 30-39.9) E66.9 Active 654031965 Problem Chronic kidney disease, stage 3 (moderate) N18.3 Active 762199073 Problem Morbid (severe) obesity due to excess calories E66 .01 Active 832265242 Problem Type 2 diabetes mellitus with other specified complication E11.69 Active 79124924 ALLERGIES No Information ENCOUNTERS Encounter Location Date Diagnosis [facility] [address] [id number] [place] [address] May, Type 2 diabetes mellitus with other spec ified complication E11.69 ; Other cirrhosis of liver K74.69 ; Chronic kidney disease, stage 3 (moderate) N18.3 ; Chronic diastolic (congestive) heart failure I50.32 ; Paroxysmal atrial fibrillation I48.0 ; Morbid (severe) obesity due to excess calories E66.01 and Hyperlipidemia, unspecified hyperlipidemia type E78.5 [facility] [id number] [place] [address] May, [address] [place] [address] Apr, [facility] [id number] [place] [address] Mar, [facility] [address] [id number] [place] [address] Mar, [facility] [id number] [place] [address] Mar, [facility] [address] [id number] [place] [address] Mar, [facility] [id number] [place] [address] Mar, [address] [place] [address] Mar, [address] [place] [address] Mar, [facility] [address] [id number] [place] [address] Mar, [facility] [id number] [place] [address] Mar, [facility] [address] [id number] [place] [address] Mar, [facility] [id number] [place] [address] Feb, [facility] [id number] [place] [address] Feb, Coronary artery disease involving napaimute coronary artery of napaimute heart without angina pectoris I25.10 ; Chronic kidney disease, stage 3 (moderate) N18.3 and Morbid (severe) obesity due to excess calories E66.01 [facility] [address] [id number] [place] [address] Feb, [facility] [id number] [place] [address] Feb, [facility] [address] [id number] [place] [address] Feb, [facility] [id number] [place] [address] Jan, [facility] [address] [id number] [place] [address] Jan, [facility] [id number] [place] [address] Jan, [facility] [id number] [place] [address] Jan, [facility] [id number] [place] [address] Jan, [facility] [address] [id number] [place] [address] Jan, [facility] [id number] [place] [address] Dec, [facility] [address] [place] [address] Dec, [facility] [id number] [place] [address] Nov, [facility] [id number] [place] [address] Nov, [facility] [id number] [place] [address] Nov, [facility] [id number] [place] [address] Nov, [facility] [address] [place] [address] Oct, [facility] [id number] [place] [address] Oct, [address] [place] [address] Sep, [facility] [address] [id number] [place] [address] Sep, [facility] [address] [id number] [place] [address] Aug, Type 2 diabetes mellitus with unspecifie d complications E11.8 ; USP 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 and Obesity (BMI 30-39.9) E66.[address] [place] [address] Aug, Type 2 diabetes mellitus wit hout complications E11.[address] [place] [address] Aug, Type 2 diabetes mellitus wit hout complications E11.9 [facility] [id number] [place] [address] Aug, [address] [place] [address] July, USP 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 ins ulin Z79.4 and Type 2 diabetes mellitus with unspecified complications E11.[address] [place] [address] July, Screening mammogram, encount er for Z12.31 [facility] [id number] [place] [address] July, [facility] [address] [address] July, Paroxysmal atrial fibrillation I48.0 and Coronary artery disease involving napaimute coronary artery of napaimute heart without angina pectoris I25.10 [facility] [id number] [place] [address] Jun, [facility] [facility] [address] [address] Jun, [facility] [facility] [address] [address] May, [place] [facility] [address] [address] May, Type 2 diabetes mellitus with unspecifie d complications E11.8 ; metrology specialist 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 ; Leg cramps R25.2 ; Essential hypertension I10 and Routine adult health maintenance Z00.00 [facility] [facility] [address] [address] Apr, [facility] [facility] [address] [address] Apr, [facility] [facility] [address] [address] Mar, Type 2 diabetes mellitus without complic ations E11.9 [facility] [facility] [address] [address] Mar, Type 2 diabetes mellitus without complic ations E11.9 [facility] [facility] [address] [address] Mar, Type 2 diabetes mellitus without complic ations E11.9 [facility] [facility] [address] [address] Feb, Essential (primary) hypertension I10 [facility] [address] [address] Feb, [facility] [address] [address] Jan, Type 2 diabetes mellitus without complic ations E11.9 [facility] [facility] [address] [address] Dec, [facility] [address] [address] Dec, Type 2 diabetes mellitus with diabetic n europathy, unspecified E11.40 ; USP 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 and Chronic kidney disease, unspecified CKD stage N18.9 [facility] [id number] [place] [address] 15 Dec, 2017 Type 2 diabetes mellitus without complic ations E11.9 [facility] [facility] [id number] [place] [address] 10 Dec, 2017 [facility] [address] [address] 09 Dec, 2017 Type 2 diabetes mellitus without complic ations E11.9 [facility] [address] [address] 08 Dec, 2017 [place] [address] [address] Oct, [place] [address] [address] Sep, [place] [address] [address] Aug, [facility] [address] [address] Aug, Exposure to hepatitis C Z20.5 and Routin e adult health maintenance Z00.00 [facility] [address] [address] Aug, Exposure to hepatitis C Z20.5 [facility] [facility] [address] [address] 11 Aug, 2017 Medicare annual wellness visit, initial Z00.00 ; Coronary artery disease involving napaimute coronary artery of napaimute heart without angina pectoris I25.10 ; Hyperlipidemia, unspecified hyperlipidemia type E78.5 ; Essential hypertension I10 ; GERD (gastroesophageal reflux disease) K21.9 ; Routine adult health maintenance Z00.00 ; Encounter for immunization Z23 ; Type 2 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, unspecified E11.40 and metrology specialist 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 [facility] [id number] [place] [address] July, Type 2 diabetes mellitus without complic ations E11.9 and Type 2 diabetes mellitus without complications E11.9 [facility] [id number] [place] [address] July, [facility] [address] [address] July, [facility] [id number] [place] [address] Mar, Type 2 diabetes mellitus without complic ations E11.9 [facility] [id number] [place] [address] Mar, [facility] [address] [address] Feb, Type 2 diabetes mellitus without complic ations E11.9 [facility] [address] [address] Jan, Type 2 diabetes mellitus without complic ations E11.9 [facility] [address] [address] Jan, Type 2 diabetes mellitus without complic ations E11.9 [facility] [id number] [place] [address] Nov, [facility] [address] [address] Oct, Type 2 diabetes mellitus without complic ations E11.9 [facility] [address] [address] Oct, Type 2 diabetes mellitus without complic ations E11.9 ; Essential hypertension I10 and Neck pain M54.2 [facility] [id number] [place] [address] Sep, [facility] [address] [address] Aug, Type 2 diabetes mellitus without complic ations E11.9 [facility] [id number] [place] [address] Jun, Type 2 diabetes mellitus without complic ations E11.9 ; Neck pain M54.2 and Essential hypertension I10 [facility] [address] [address] 17 Jun, 2016 [facility] [address] [address] 14 Jun, 2016 [facility] [address] [address] 10 Jun, 2016 GERD (gastroesophageal reflux disease) K 21.9 and Type 2 diabetes mellitus without complications E11.9 [facility] [address] [address] Mar, Paresthesias in right hand R20.2 [facility] [address] [address] Feb, Type 2 diabetes mellitus without complic ations E11.9 [facility] [address] [id number] Feb, Encounter for dental examination Z01.20 [facility] [address] [address] Feb, Type 2 diabetes mellitus without complic ations E11.9 and Neck pain M54.2 [facility] [address] [address] Feb, Type 2 diabetes mellitus without complic ations E11.9 [facility] [address] [id number] Jan, Dental examination Z01.20 [facility] [address] [address] Jan, [facility] [address] [address] Jan, [facility] [address] [id number] Dec, Dental caries K02.9 [facility] [address] [address] 30 Nov, 2015 [facility] [id number] [place] [address] Nov, [facility] [id number] [place] [address] Oct, Type 2 diabetes mellitus without complic ations E11.9 ; Neck pain M54.2 and Essential hypertension I10 [facility] [id number] [place] [address] Oct, [facility] [address] [facility] [place] [address] Oct, Dental examination Z01.20 [facility] [id number] [place] [address] Sep, [facility] [id number] [place] [address] Sep, [facility] [id number] [place] [address] Aug, Essential (primary) hypertension I10 [facility] [id number] [place] [address] Aug, [facility] [id number] [place] [address] Aug, [facility] [id number] [place] [address] July, Essential (primary) hypertension I10 [facility] [id number] [place] [address] July, Essential (primary) hypertension I10 and Type 2 diabetes mellitus without complications E11.9 [facility] [id number] [place] [address] July, [facility] [id number] [place] [address] 14 Jun, 2015 GERD (gastroesophageal reflux disease) K 21.9 [facility] [id number] [place] [address] Jun, GERD (gastroesophageal reflux disease) K 21.9 [facility] [id number] [place] [address] 08 Jun, 2015 [facility] [id number] [place] [address] Jun, Neuropathy G62.9 [facility] [id number] [place] [address] May, Essential (primary) hypertension I10 [facility] [address] [facility] [id number] [place] [address] May, Bronchitis J40 [facility] [id number] [place] [address] 15 May, 2015 Type 2 diabetes mellitus without complic ations E11.9 and Essential (primary) hypertension I10 [facility] [id number] [place] [address] May, [facility] [address] [address] May, GERD (gastroesophageal reflux disease) K 21.9 [facility] [id number] [place] [address] 25 Apr, 2015 Other and unspecified hyperlipidemia 272 .4 ; Unspecified essential hypertension 401.9 ; Type 2 diabetes mellitus without complications E11.9 ; Neck pain M54.2 and Paresthesias in right hand R20.2 [facility] [id number] [place] [address] Apr, [facility] [address] [address] Apr, Neuropathy G62.9 [facility] [id number] [place] [address] Mar, [facility] [address] [address] Feb, [facility] [id number] [place] [address] Jan, [facility] [address] [address] Dec, [facility] [id number] [place] [address] Dec, Type 2 diabetes mellitus without complic ations E11.9 ; Encounter for immunization Z23 and Neck pain M54.2 [facility] [id number] [place] [address] Dec, [facility] [address] [address] Nov, [facility] [address] [address] Nov, [facility] [address] [address] Oct, [facility] [address] [address] Oct, [facility] [address] [address] Sep, [facility] [address] [address] Sep, Coronary atherosclerosis of unspecified type of vessel, napaimute or graft 414.00 ; Diabetes mellitus without mention of complication, type II or unspecified type, not stated as uncontrolled 250.00 ; Hyperlipidemia 272.4 and HTN (hypertension) 401.9 [facility] [id number] [place] [address] Aug, [facility] [address] [address] July, [facility] [address] [address] Jun, [facility] [address] [address] Jun, [facility] [address] [address] May, [facility] [address] [address] May, [facility] [address] [id number] [place] [address] May, [facility] [address] [id number] [facility] [place] [address] May, [facility] [address] [id number] [place] [address] Apr, [facility] [address] [id number] [facility] [place] [address] Apr, [facility] [address] [id number] [facility] [place] [address] Apr, [facility] [address] [id number] [place] [address] Apr, [facility] [address] [id number] [place] [address] Apr, [facility] [address] [id number] [place] [address] Apr, [facility] [address] [id number] [place] [address] Apr, [facility] [address] [id number] [place] [address] Apr, [facility] [address] [id number] [place] [address] Mar, [facility] [address] [id number] [place] [address] Mar, [facility] [address] [id number] [place] [address] Mar, [facility] [address] [id number] [place] [address] Mar, [facility] [address] [id number] [place] [address] Mar, [facility] [address] [id number] [place] [address] Mar, [facility] [address] [id number] [place] [address] Mar, [facility] [address] [id number] [place] [address] Mar, [facility] [address] [id number] [place] [address] Feb, [facility] [address] [id number] [place] [address] Feb, [facility] [address] [id number] [place] [address] Feb, [facility] [address] [id number] [place] [address] Feb, [facility] [address] [id number] [place] [address] Feb, [facility] [address] [id number] [place] [address] Feb, [facility] [address] [id number] [place] [address] Feb, [facility] [address] [id number] [place] [address] Feb, [facility] [address] [id number] [place] [address] Feb, [facility] [address] [id number] [place] [address] Feb, [facility] [address] [id number] [place] [address] Jan, [facility] [address] [id number] [place] [address] Jan, [facility] [address] [id number] [place] [address] Dec, [facility] [address] [id number] [place] [address] Dec, [facility] [address] [id number] [place] [address] Dec, [facility] [address] [id number] [place] [address] Dec, [facility] [address] [id number] [place] [address] Nov, [facility] [address] [id number] [place] [address] Nov, 2013 [facility] [address] [id number] [place] [address] Nov, [facility] [address] [facility] [id number] [place] [address] Nov, [facility] [address] [id number] [place] [address] Oct, [facility] [address] [id number] [place] [address] Oct, [facility] [address] [id number] [place] [address] Oct, [facility] [address] [id number] [place] [address] Oct, [facility] [address] [id number] [place] [address] Oct, [facility] [address] [id number] [place] [address] Sep, 2013 [facility] [address] [id number] [place] [address] Sep, 2013 [facility] [address] [id number] [place] [address] Sep, 2013 [facility] [address] [id number] [place] [address] Sep, [facility] [address] [id number] [place] [address] Sep, 2013 [facility] [address] [id number] [place] [address] Sep, 2013 [facility] [address] [id number] [place] [address] Aug, [facility] [address] [facility] [id number] [place] [address] Aug, [facility] [address] [facility] [id number] [place] [address] Aug, [facility] [address] [id number] [place] [address] Aug, [facility] [address] [id number] [place] [address] Aug, [facility] [address] [facility] [id number] [place] [address] Aug, [facility] [address] [id number] [place] [address] July, [facility] [address] [id number] [place] [address] July, [facility] [address] [id number] [place] [address] Jun, [facility] [address] [id number] [place] [address] Jun, [facility] [address] [id number] [place] [address] May, [facility] [address] [id number] [place] [address] May, [facility] [address] [id number] [place] [address] May, [facility] [address] [facility] [id number] [place] [address] May, [facility] [address] [id number] [place] [address] Apr, [facility] [address] [id number] [place] [address] Apr, [facility] [address] [id number] [place] [address] Apr, [facility] [address] [id number] [place] [address] Apr, 2013 [facility] [address] [id number] [place] [address] Apr, 2013 [facility] [address] [id number] [place] [address] Apr, [facility] [id number] [place] [address] Feb, [facility] [address] [id number] [place] [address] Feb, [facility] [id number] [place] [address] Feb, [facility] [address] [id number] [place] [address] Feb, [facility] [id number] [place] [address] Jan, [facility] [id number] [place] [address] Jan, [facility] [id number] [place] [address] Dec, [facility] [id number] [place] [address] Dec, [facility] [id number] [place] [address] Dec, [facility] [id number] [place] [address] Dec, [facility] [address] [id number] [place] [address] Oct, [facility] [id number] [place] [id number] Oct, [facility] [address] [facility] [id number] [place] [id number] Oct, [facility] [address] [id number] [place] [address] Oct, [facility] [address] [id number] [place] [address] Sep, [facility] [address] [id number] [place] [address] Sep, [facility] [address] [id number] [place] [address] Aug, [facility] [address] [id number] [place] [address] Aug, [facility] [address] [id number] [place] [address] Aug, [facility] [address] [id number] [place] [address] Aug, [facility] [address] [id number] [place] [address] July, [facility] [address] [id number] [place] [address] Jun, [facility] [address] [id number] [place] [address] May, [facility] [address] [id number] [place] [address] May, [facility] [address] [id number] [place] [address] May, [facility] [address] [id number] [place] [address] May, [facility] [address] [id number] [place] [address] May, [facility] [address] [id number] [place] [address] Apr, [facility] [address] [id number] [place] [address] Apr, [facility] [address] [id number] [place] [address] Apr, [facility] [address] [id number] [place] [address] Apr, [facility] [address] [id number] [place] [address] Mar, [facility] [address] [id number] [place] [address] Mar, [facility] [address] [id number] [place] [address] Mar, [facility] [address] [id number] [place] [address] Mar, [facility] [address] [id number] [place] [address] Jan, [facility] [address] [id number] [place] [address] Jan, [facility] [id number] [place] [address] Jan, [facility] [id number] [place] [address] Jan, [facility] [address] [id number] [place] [address] Jan, [facility] [address] [id number] [place] [address] Jan, [facility] [address] [id number] [place] [address] Jan, [facility] [address] [id number] [place] [address] Jan, [facility] [address] [id number] [place] [address] Jan, [facility] [id number] [place] [address] Jan, [facility] [address] [id number] [place] [address] Dec, [facility] [address] [id number] [place] [address] Dec, [facility] [address] [id number] [place] [address] Dec, [facility] [address] [id number] [place] [address] Nov, [facility] [address] [id number] [place] [address] Nov, [facility] [address] [id number] [place] [address] Nov, [facility] [address] [id number] [place] [address] Nov, [facility] [address] [id number] [place] [address] Oct, [facility] [address] [id number] [place] [address] Oct, IMMUNIZATIONS No Known Immunizations SOCIAL HISTORY [...] surgeries Hospitalization History [facility] 06/2018 Hospitalization History [facility]- 07/2018 [facility] - heart attack and rehab -03/02/2019
--- OUTSIDE RECORDS SUMMARY | 2019-07-20 17:13 | XMS REPORT ---
Author Author Sarah AMADO Organization [facility] Address [address] [place] [address] Care Team Providers Care Electrician Technician Name Role Phone GEE AMADO Unavailable PROBLEMS Type Condition ICD9-CM Code BSS52-FX Code Onset Dates Condition S tatus SNOMED Code Problem Hyperlipidemia, unspecified hyperlipidemia type E7 8.5 Active 82327425 Problem Paresthesias in right hand R20.2 Act chidi 514934723 Problem Coronary artery disease invo lving lytton coronary artery of lytton heart without angina pectoris I25.10 Active 1641 898498117 Problem Essential hypertension I10 Active 49043195 Problem Neck pain M54.2 Active 20165870 Problem Type 2 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, uns pecified E11.40 Active 34924057 Problem Chronic kidney disease, unspecified CKD stage N18. 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 Active 918593487 Problem Chronic diastolic (congestive) heart failure I50.3 2 Active 486007472 Problem GERD (gastroesophageal reflux disease) K21.9 Active 576311067 Problem Obesity (BMI 30-39.9) E66.9 Active 351209560 Problem Chronic kidney disease, stage 3 (moderate) N18.3 Active 713024628 Problem Morbid (severe) obesity due to excess calories E66 .01 Active 381216131 Problem Type 2 diabetes mellitus with other specified complication E11.69 Active 34085513 ALLERGIES No Information ENCOUNTERS Encounter Location Date Diagnosis [facility] [address] [id number] [place] [address] May, [facility] [address] [id number] [place] [address] May, Type 2 diabetes mellitus with other spec ified complication E11.69 ; Other cirrhosis of liver K74.69 ; Chronic kidney disease, stage 3 (moderate) N18.3 ; Chronic diastolic (congestive) heart failure I50.32 ; Paroxysmal atrial fibrillation I48.0 ; Morbid (severe) obesity due to excess calories E66.01 and Hyperlipidemia, unspecified hyperlipidemia type E78.5 [facility] [address] [id number] [place] [address] May, [address] [place] [address] Apr, [facility] [id number] [place] [address] Mar, [facility] [id number] [place] [address] Mar, [facility] [id number] [place] [address] Mar, [facility] [id number] [place] [address] Mar, [facility] [address] [id number] [place] [address] Mar, [address] [place] [address] Mar, [address] [place] [address] Mar, [facility] [id number] [place] [address] Mar, [facility] [address] [id number] [place] [address] Mar, [facility] [address] [id number] [place] [address] Mar, [facility] [id number] [place] [address] Feb, [facility] [id number] [place] [address] Feb, Coronary artery disease involving lytton coronary artery of lytton heart without angina pectoris I25.10 ; Chronic kidney disease, stage 3 (moderate) N18.3 and Morbid (severe) obesity due to excess calories E66.01 [facility] [id number] [place] [address] Feb, [facility] [address] [id number] [place] [address] Feb, [facility] [id number] [place] [address] Feb, [facility] [address] [id number] [place] [address] Jan, [facility] [id number] [place] [address] Jan, [facility] [id number] [place] [address] Jan, [facility] [id number] [place] [address] Jan, [facility] [address] [id number] [place] [address] Jan, [facility] [id number] [place] [address] Jan, [facility] [id number] [place] [address] Dec, [address] [place] [address] Dec, [facility] [id number] [place] [address] Nov, [facility] [id number] [place] [address] Nov, [facility] [id number] [place] [address] Nov, [facility] [id number] [place] [address] Nov, [address] [place] [address] Oct, [facility] [address] [id number] [place] [address] Oct, [address] [place] [address] Sep, [facility] [address] [id number] [place] [address] Sep, [facility] [id number] [place] [address] Aug, Type 2 diabetes mellitus with unspecifie d complications E11.8 ; [facility] 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 and Obesity (BMI 30-39.9) E66.9 [address] [place] [address] Aug, Type 2 diabetes mellitus wit hout complications E11.9 [address] [place] [address] Aug, Type 2 diabetes mellitus wit hout complications E11.9 [address] [facility] [place] [address] Aug, [address] [place] [address] July, 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 and Type 2 diabetes mellitus with unspecified complications E11.8 [address] [place] [address] July, Screening mammogram, encount er for Z12.31 [address] [address] [id number] [place] [address] July, [address] [address] [address] July, Paroxysmal atrial fibrillation I48.0 and Coronary artery disease involving lytton coronary artery of lytton heart without angina pectoris I25.10 [facility] [id number] [place] [address] Jun, [facility] [address] [address] Jun, [facility] [address] [address] May, [facility] [address] [address] May, Type 2 diabetes mellitus with unspecifie d complications E11.8 ; [facility] 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 ; Leg cramps R25.2 ; Essential hypertension I10 and Routine adult health maintenance Z00.00 [facility] [address] [address] 07 Apr, 2018 [facility] [address] [address] Apr, [facility] [address] [address] Mar, Type 2 diabetes mellitus without complic ations E11.9 [facility] [address] [address] Mar, Type 2 diabetes mellitus without complic ations E11.9 [facility] [address] [address] Mar, Type 2 diabetes mellitus without complic ations E11.9 [place] [address] [address] Feb, Essential (primary) hypertension I10 [facility] [address] [address] Feb, [facility] [address] [address] Jan, Type 2 diabetes mellitus without complic ations E11.9 [facility] [address] [address] Dec, [facility] [address] [address] Dec, Type 2 diabetes mellitus with diabetic n europathy, unspecified E11.40 ; [facility] 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 and Chronic kidney disease, unspecified CKD stage N18.9 [place] [address] [address] 15 Dec, 2017 Type 2 diabetes mellitus without complic ations E11.9 [place] [address] [address] 10 Dec, 2017 [place] [address] [address] 09 Dec, 2017 Type 2 diabetes mellitus without complic ations E11.9 [place] [address] [address] 08 Dec, 2017 [place] [address] [address] Oct, [place] [address] [address] Sep, [place] [address] [address] Aug, [place] [address] [address] Aug, Exposure to hepatitis C Z20.5 and Routin e adult health maintenance Z00.00 [place] [address] [address] Aug, Exposure to hepatitis C Z20.5 [place] [address] [address] Aug, Medicare annual wellness visit, initial Z00.00 ; Coronary artery disease involving lytton coronary artery of lytton heart without angina pectoris I25.10 ; Hyperlipidemia, unspecified hyperlipidemia type E78.5 ; Essential hypertension I10 ; GERD (gastroesophageal reflux disease) K21.9 ; Routine adult health maintenance Z00.00 ; Encounter for immunization Z23 ; Type 2 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, unspecified E11.40 and 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 [place] [address] [address] July, Type 2 diabetes mellitus without complic ations E11.9 and Type 2 diabetes mellitus without complications E11.9 [facility] [id number] [place] [address] July, [facility] [id number] [place] [address] July, [facility] [address] [address] Mar, Type 2 diabetes mellitus without complic ations E11.9 [facility] [address] [address] Mar, [facility] [address] [address] Feb, Type 2 diabetes mellitus without complic ations E11.9 [facility] [address] [address] Jan, Type 2 diabetes mellitus without complic ations E11.9 [facility] [id number] [place] [address] Jan, Type 2 diabetes mellitus without complic ations E11.9 [facility] [id number] [place] [address] Nov, [facility] [address] [address] Oct, Type 2 diabetes mellitus without complic ations E11.9 [facility] [address] [address] Oct, Type 2 diabetes mellitus without complic ations E11.9 ; Essential hypertension I10 and Neck pain M54.2 [facility] [id number] [place] [address] Sep, [facility] [address] [address] Aug, Type 2 diabetes mellitus without complic ations E11.9 [facility] [address] [address] 20 Jun, 2016 Type 2 diabetes mellitus without complic ations E11.9 ; Neck pain M54.2 and Essential hypertension I10 [facility] [address] [address] 17 Jun, 2016 [facility] [address] [address] 14 Jun, 2016 [facility] [address] [address] 10 Jun, 2016 GERD (gastroesophageal reflux disease) K 21.9 and Type 2 diabetes mellitus without complications E11.9 [place] [address] [address] Mar, Paresthesias in right hand R20.2 [place] [address] [address] Feb, Type 2 diabetes mellitus without complic ations E11.9 [facility] [address] [id number] Feb, Encounter for dental examination Z01.20 [facility] [address] [address] 09 Feb, 2016 Type 2 diabetes mellitus without complic ations E11.9 and Neck pain M54.2 [place] [address] [address] Feb, Type 2 diabetes mellitus without complic ations E11.9 [facility] [address] [id number] Jan, Dental examination Z01.20 [facility] [address] [address] Jan, [facility] [address] [address] Jan, [facility] [address] [id number] Dec, Dental caries K02.9 [facility] [id number] [place] [address] 30 Nov, 2015 [facility] [address] [address] Nov, [facility] [address] [address] Oct, Type 2 diabetes mellitus without complic ations E11.9 ; Neck pain M54.2 and Essential hypertension I10 [facility] [id number] [place] [address] Oct, [facility] [id number] [place] [address] Oct, Dental examination Z01.20 [facility] [id number] [place] [address] Sep, [facility] [address] [address] Sep, [facility] [address] [address] Aug, Essential (primary) hypertension I10 [facility] [address] [address] Aug, [facility] [address] [address] Aug, [facility] [address] [address] July, Essential (primary) hypertension I10 [facility] [address] [address] July, Essential (primary) hypertension I10 and Type 2 diabetes mellitus without complications E11.9 [facility] [address] [address] July, [facility] [address] [address] 14 Jun, 2015 GERD (gastroesophageal reflux disease) K 21.9 [facility] [address] [address] Jun, GERD (gastroesophageal reflux disease) K 21.9 [facility] [id number] [place] [address] Jun, [facility] [address] [address] Jun, Neuropathy G62.9 [facility] [address] [address] May, Essential (primary) hypertension I10 [facility] [address] [facility] [id number] [place] [address] May, Bronchitis J40 [facility] [address] [address] 15 May, 2015 Type 2 diabetes mellitus without complic ations E11.9 and Essential (primary) hypertension I10 [facility] [id number] [place] [address] May, [facility] [address] [address] May, GERD (gastroesophageal reflux disease) K 21.9 [facility] [address] [address] Apr, Other and unspecified hyperlipidemia 272 .4 ; Unspecified essential hypertension 401.9 ; Type 2 diabetes mellitus without complications E11.9 ; Neck pain M54.2 and Paresthesias in right hand R20.2 [facility] [address] [address] Apr, [facility] [address] [address] Apr, Neuropathy G62.9 [facility] [address] [address] Mar, [facility] [address] [address] Feb, [facility] [address] [address] Jan, [facility] [address] [address] Dec, [facility] [address] [address] Dec, Type 2 diabetes mellitus without complic ations E11.9 ; Encounter for immunization Z23 and Neck pain M54.2 [facility] [address] [address] Dec, [facility] [address] [address] Nov, [facility] [address] [address] Nov, [facility] [address] [address] Oct, [facility] [address] [address] Oct, [facility] [address] [address] Sep, [facility] [address] [address] Sep, Coronary atherosclerosis of unspecified type of vessel, lytton or graft 414.00 ; Diabetes mellitus without mention of complication, type II or unspecified type, not stated as uncontrolled 250.00 ; Hyperlipidemia 272.4 and HTN (hypertension) 401.9 [facility] [address] [address] Aug, [facility] [address] [address] July, [facility] [address] [address] Jun, [facility] [address] [address] Jun, [facility] [address] [address] May, [facility] [address] [id number] [place] [address] May, [facility] [address] [id number] [place] [address] May, [facility] [address] [id number] [place] [address] May, [facility] [address] [id number] [place] [address] Apr, [facility] [address] [facility] [id number] [place] [address] Apr, [facility] [address] [id number] [place] [address] Apr, [facility] [address] [id number] [place] [address] Apr, [facility] [address] [id number] [place] [address] Apr, [facility] [address] [id number] [place] [address] Apr, [facility] [address] [id number] [place] [address] Apr, [facility] [address] [id number] [place] [address] Apr, [facility] [address] [id number] [place] [address] Mar, [facility] [address] [id number] [place] [address] Mar, [facility] [address] [id number] [place] [address] Mar, [facility] [address] [id number] [place] [address] Mar, [facility] [address] [id number] [place] [address] Mar, [facility] [address] [id number] [place] [address] Mar, [facility] [address] [id number] [place] [address] Mar, [facility] [address] [id number] [place] [address] Mar, [facility] [address] [id number] [place] [address] Feb, [facility] [address] [id number] [place] [address] Feb, [facility] [address] [id number] [place] [address] Feb, [facility] [address] [id number] [place] [address] Feb, [facility] [address] [id number] [place] [address] Feb, [facility] [address] [id number] [place] [address] Feb, [facility] [address] [id number] [place] [address] Feb, [facility] [address] [id number] [place] [address] Feb, [facility] [address] [id number] [place] [address] Feb, [facility] [address] [id number] [place] [address] Feb, [facility] [address] [id number] [place] [address] Jan, [facility] [address] [id number] [place] [address] Jan, [facility] [address] [id number] [place] [address] Dec, [facility] [address] [id number] [place] [address] Dec, [facility] [address] [facility] [id number] [place] [address] Dec, [facility] [address] [id number] [place] [address] Dec, [facility] [address] [id number] [place] [address] Nov, [facility] [address] [id number] [place] [address] Nov, [facility] [address] [facility] [id number] [place] [address] Nov, [facility] [address] [id number] [place] [address] Nov, [facility] [address] [id number] [place] [address] Oct, [facility] [address] [id number] [place] [address] Oct, [facility] [address] [id number] [place] [address] Oct, [facility] [address] [id number] [place] [address] Oct, [facility] [address] [id number] [place] [address] Oct, [facility] [address] [id number] [place] [address] Sep, [facility] [address] [id number] [place] [address] Sep, 2013 [facility] [address] [id number] [place] [address] Sep, [facility] [address] [id number] [place] [address] Sep, 2013 [facility] [address] [id number] [place] [address] Sep, 2013 [facility] [address] [id number] [place] [address] Sep, [facility] [address] [facility] [id number] [place] [address] Aug, [facility] [address] [facility] [id number] [place] [address] Aug, [facility] [address] [id number] [place] [address] Aug, [facility] [address] [id number] [place] [address] Aug, [facility] [address] [facility] [id number] [place] [address] Aug, [facility] [address] [id number] [place] [address] Aug, [facility] [address] [id number] [place] [address] July, [facility] [address] [id number] [place] [address] July, [facility] [address] [id number] [place] [address] Jun, [facility] [address] [id number] [place] [address] Jun, [facility] [address] [id number] [place] [address] May, [facility] [address] [id number] [place] [address] May, [facility] [address] [id number] [place] [address] May, [facility] [address] [id number] [place] [address] May, [facility] [address] [id number] [place] [address] Apr, [facility] [address] [id number] [place] [address] Apr, [facility] [address] [id number] [place] [address] 10 Apr, 2013 [facility] [id number] [place] [address] Apr, 2013 [facility] [address] [id number] [place] [address] Apr, [facility] [id number] [place] [address] Apr, [facility] [id number] [place] [address] Feb, [facility] [id number] [place] [address] Feb, [facility] [id number] [place] [address] Feb, [facility] [id number] [place] [address] Feb, [facility] [id number] [place] [address] Jan, [facility] [id number] [place] [address] Jan, [facility] [id number] [place] [address] Dec, [facility] [id number] [place] [address] Dec, [facility] [id number] [place] [address] Dec, [facility] [id number] [place] [address] Dec, [facility] [id number] [place] [address] Oct, [facility] [address] [id number] [place] [id number] Oct, [facility] [address] [id number] [place] [id number] Oct, [facility] [address] [id number] [place] [address] Oct, [facility] [address] [id number] [place] [address] Sep, [facility] [address] [id number] [place] [address] Sep, [facility] [address] [id number] [place] [address] Aug, [facility] [address] [id number] [place] [address] Aug, [facility] [address] [id number] [place] [address] Aug, [facility] [address] [id number] [place] [address] Aug, [facility] [address] [id number] [place] [address] July, [facility] [address] [id number] [place] [address] Jun, [facility] [address] [id number] [place] [address] May, [facility] [address] [id number] [place] [address] May, [facility] [address] [id number] [place] [address] May, [facility] [address] [id number] [place] [address] May, [facility] [address] [id number] [place] [address] May, [facility] [address] [id number] [place] [address] Apr, [facility] [address] [id number] [place] [address] Apr, [facility] [address] [id number] [place] [address] 07 Apr, 2012 [facility] [address] [id number] [place] [address] Apr, [facility] [address] [id number] [place] [address] Mar, [facility] [address] [id number] [place] [address] Mar, [facility] [address] [id number] [place] [address] Mar, [facility] [address] [id number] [place] [address] Mar, [facility] [address] [id number] [place] [address] Jan, [facility] [address] [id number] [place] [address] Jan, [facility] [id number] [place] [address] Jan, [facility] [address] [id number] [place] [address] Jan, [facility] [address] [id number] [place] [address] Jan, [facility] [address] [id number] [place] [address] Jan, [facility] [address] [id number] [place] [address] Jan, [facility] [address] [id number] [place] [address] Jan, [facility] [id number] [place] [address] Jan, [facility] [address] [id number] [place] [address] Jan, [facility] [address] [id number] [place] [address] Dec, [facility] [address] [id number] [place] [address] Dec, [facility] [address] [id number] [place] [address] Dec, [facility] [address] [id number] [place] [address] Nov, [facility] [id number] [place] [address] Nov, [facility] [id number] [place] [address] Nov, [facility] [id number] [place] [address] Nov, [facility] [address] [id number] [place] [address] Oct, [facility] [address] [id number] [place] [address] Oct, IMMUNIZATIONS No Known Immunizations SOCIAL HISTORY [...] egd 01/2019 Hospitalization History surgeries Hospitalization History [facility] 06/2018 Hospitalization History [facility] 07[facility]2018 [facility] - heart attack and rehab -03/02/2019
--- OUTSIDE RECORDS SUMMARY | 2019-07-20 17:13 | XMS REPORT ---
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 Name Role Phone GEE AMADO Unavailable PROBLEMS Type Condition ICD9-CM Code [id number] Code Onset Dates Condition S tatus SNOMED Code Problem Hyperlipidemia, unspecified hyperlipidemia type E7 8.5 Active 22394181 Problem Paresthesias in right hand R20.2 Act chidi 870668932 Problem Coronary artery disease invo lving [place] coronary artery of [place] heart without angina pectoris I25.10 Active 1641 [id number] Problem Essential hypertension I10 Active 78680457 Problem Neck pain M54.2 Active 32054479 Problem Type 2 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, uns pecified E11.40 Active 67273264 Problem Chronic kidney disease, unspecified CKD stage N18. 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 642495044 Problem Chronic diastolic (congestive) heart failure I50.3 2 Active 734313322 Problem GERD (gastroesophageal reflux disease) K21.9 Active 041144219 Problem Obesity (BMI 30-39.9) E66.9 Active 871500964 Problem Chronic kidney disease, stage 3 (moderate) N18.3 Active 968585234 Problem Morbid (severe) obesity due to excess calories E66 .01 Active 012706199 Problem Type 2 diabetes mellitus with other specified complication E11.69 Active 40958835 ALLERGIES No Information ENCOUNTERS Encounter Location Date Diagnosis [facility] [address] [id number] [place] [address] May, [facility] [address] [id number] [place] [address] May, Type 2 diabetes mellitus with other spec ified complication E11.69 ; Other cirrhosis of liver K74.69 ; Chronic kidney disease, stage 3 (moderate) N18.3 ; Chronic diastolic (congestive) heart failure I50.32 ; Paroxysmal atrial fibrillation I48.0 ; Morbid (severe) obesity due to excess calories E66.01 and Hyperlipidemia, unspecified hyperlipidemia type E78.5 [facility] [address] [id number] [place] [address] May, [address] [place] [address] Apr, [facility] [id number] [place] [address] Mar, [facility] [id number] [place] [address] Mar, [facility] [id number] [place] [address] Mar, [facility] [id number] [place] [address] Mar, [facility] [address] [id number] [place] [address] Mar, [address] [place] [address] Mar, [address] [place] [address] Mar, [facility] [id number] [place] [address] Mar, [facility] [address] [id number] [place] [address] Mar, [facility] [address] [id number] [place] [address] Mar, [facility] [id number] [place] [address] Feb, [facility] [id number] [place] [address] Feb, Coronary artery disease involving [place] coronary artery of [place] heart without angina pectoris I25.10 ; Chronic kidney disease, stage 3 (moderate) N18.3 and Morbid (severe) obesity due to excess calories E66.01 [facility] [id number] [place] [address] Feb, [facility] [address] [id number] [place] [address] Feb, [facility] [id number] [place] [address] Feb, [facility] [address] [id number] [place] [address] Jan, [facility] [id number] [place] [address] Jan, [facility] [id number] [place] [address] Jan, [facility] [id number] [place] [address] Jan, [facility] [address] [id number] [place] [address] Jan, [facility] [id number] [place] [address] Jan, [facility] [id number] [place] [address] Dec, [address] [place] [address] Dec, [facility] [id number] [place] [address] Nov, [facility] [id number] [place] [address] Nov, [facility] [id number] [place] [address] Nov, [facility] [id number] [place] [address] Nov, [address] [place] [address] Oct, [facility] [address] [id number] [place] [address] Oct, [address] [place] [address] Sep, [facility] [address] [id number] [place] [address] Sep, [facility] [id number] [place] [address] Aug, Type 2 diabetes mellitus with unspecifie d complications E11.8 ; long-term 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 and Obesity (BMI 30-39.9) E66.9 [address] [place] [address] Aug, Type 2 diabetes mellitus wit hout complications E11.9 [address] [place] [address] Aug, Type 2 diabetes mellitus wit hout complications E11.9 [address] [id number] [place] [address] Aug, [address] [place] [address] July, superintendent container terminal 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 ins ulin Z79.4 and Type 2 diabetes mellitus with unspecified complications E11.8 [address] [place] [address] July, Screening mammogram, encount er for Z12.31 [address] [id number] [place] [address] July, [address] [address] July, Paroxysmal atrial fibrillation I48.0 and Coronary artery disease involving [place] coronary artery of [place] heart without angina pectoris I25.10 [facility] [id number] [place] [address] Jun, [facility] [address] [address] Jun, [facility] [address] [address] May, [facility] [address] [address] May, Type 2 diabetes mellitus with unspecifie d complications E11.8 ; long-term 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 ; Leg cramps R25.2 ; Essential hypertension I10 and Routine adult health maintenance Z00.00 [facility] [address] [address] 07 Apr, 2018 [facility] [address] [address] Apr, [facility] [address] [address] Mar, Type 2 diabetes mellitus without complic ations E11.9 [facility] [address] [address] Mar, Type 2 diabetes mellitus without complic ations E11.9 [facility] [address] [address] Mar, Type 2 diabetes mellitus without complic ations E11.9 [address] [address] Feb, Essential (primary) hypertension I10 [facility] [address] [address] Feb, [facility] [address] [address] Jan, Type 2 diabetes mellitus without complic ations E11.9 [facility] [address] [address] Dec, [facility] [address] [address] Dec, Type 2 diabetes mellitus with diabetic n europathy, unspecified E11.40 ; long-term 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 and Chronic kidney disease, unspecified CKD stage N18.9 [address] [address] 15 Dec, 2017 Type 2 diabetes mellitus without complic ations E11.9 [address] [place] [address] [address] 10 Dec, 2017 [address] [place] [address] [address] 09 Dec, 2017 Type 2 diabetes mellitus without complic ations E11.9 [address] [place] [address] [address] 08 Dec, 2017 [address] [place] [address] [address] Oct, [address] [place] [address] [address] Sep, [address] [address] [address] Aug, [address] [place] [address] [address] Aug, Exposure to hepatitis C Z20.5 and Routin e adult health maintenance Z00.00 [address] [place] [address] [address] Aug, Exposure to hepatitis C Z20.5 [address] [address] [address] Aug, Medicare annual wellness visit, initial Z00.00 ; Coronary artery disease involving [place] coronary artery of [place] heart without angina pectoris I25.10 ; Hyperlipidemia, unspecified hyperlipidemia type E78.5 ; Essential hypertension I10 ; GERD (gastroesophageal reflux disease) K21.9 ; Routine adult health maintenance Z00.00 ; Encounter for immunization Z23 ; Type 2 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, unspecified E11.40 and 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 [address] [place] [address] [address] July, Type 2 diabetes mellitus without complic ations E11.9 and Type 2 diabetes mellitus without complications E11.9 [facility] [id number] [place] [address] July, [facility] [id number] [place] [address] July, [facility] [address] [address] Mar, Type 2 diabetes mellitus without complic ations E11.9 [facility] [address] [address] Mar, [facility] [address] [address] Feb, Type 2 diabetes mellitus without complic ations E11.9 [facility] [address] [address] Jan, Type 2 diabetes mellitus without complic ations E11.9 [facility] [id number] [place] [address] Jan, Type 2 diabetes mellitus without complic ations E11.9 [facility] [id number] [place] [address] Nov, [facility] [address] [address] Oct, Type 2 diabetes mellitus without complic ations E11.9 [facility] [address] [address] Oct, Type 2 diabetes mellitus without complic ations E11.9 ; Essential hypertension I10 and Neck pain M54.2 [facility] [id number] [place] [address] Sep, [facility] [address] [address] Aug, Type 2 diabetes mellitus without complic ations E11.9 [facility] [address] [address] 20 Jun, 2016 Type 2 diabetes mellitus without complic ations E11.9 ; Neck pain M54.2 and Essential hypertension I10 [facility] [address] [address] 17 Jun, 2016 [facility] [address] [address] 14 Jun, 2016 [facility] [address] [address] 10 Jun, 2016 GERD (gastroesophageal reflux disease) K 21.9 and Type 2 diabetes mellitus without complications E11.9 [place] [address] [address] Mar, Paresthesias in right hand R20.2 [place] [place] [address] [address] Feb, Type 2 diabetes mellitus without complic ations E11.9 [facility] [address] [id number] Feb, Encounter for dental examination Z01.20 [facility] [address] [address] 09 Feb, 2016 Type 2 diabetes mellitus without complic ations E11.9 and Neck pain M54.2 [address] [place] [address] [address] Feb, Type 2 diabetes mellitus without complic ations E11.9 [facility] [address] [id number] Jan, Dental examination Z01.20 [facility] [address] [address] Jan, [facility] [address] [address] Jan, [facility] [address] [id number] Dec, Dental caries K02.9 [facility] [id number] [place] [address] 30 Nov, 2015 [facility] [address] [address] Nov, [facility] [address] [address] Oct, Type 2 diabetes mellitus without complic ations E11.9 ; Neck pain M54.2 and Essential hypertension I10 [facility] [id number] [place] [address] Oct, [facility] [id number] [place] [id number] Oct, Dental examination Z01.20 [facility] [id number] [place] [address] Sep, [facility] [address] [address] Sep, [facility] [address] [address] Aug, Essential (primary) hypertension I10 [facility] [address] [address] Aug, [facility] [address] [address] Aug, [facility] [address] [address] July, Essential (primary) hypertension I10 [facility] [address] [address] July, Essential (primary) hypertension I10 and Type 2 diabetes mellitus without complications E11.9 [facility] [address] [address] July, [facility] [address] [address] 14 Jun, 2015 GERD (gastroesophageal reflux disease) K 21.9 [facility] [address] [address] Jun, GERD (gastroesophageal reflux disease) K 21.9 [facility] [id number] [place] [address] Jun, [facility] [address] [address] Jun, Neuropathy G62.9 [facility] [address] [address] May, Essential (primary) hypertension I10 [facility] [address] [facility] [id number] [place] [address] May, Bronchitis J40 [facility] [address] [address] 15 May, 2015 Type 2 diabetes mellitus without complic ations E11.9 and Essential (primary) hypertension I10 [facility] [id number] [place] [address] May, [facility] [address] [address] May, GERD (gastroesophageal reflux disease) K 21.9 [facility] [address] [address] Apr, Other and unspecified hyperlipidemia 272 .4 ; Unspecified essential hypertension 401.9 ; Type 2 diabetes mellitus without complications E11.9 ; Neck pain M54.2 and Paresthesias in right hand R20.2 [facility] [address] [address] Apr, [facility] [address] [address] Apr, Neuropathy G62.9 [facility] [address] [address] Mar, [facility] [address] [address] Feb, [facility] [address] [address] Jan, [facility] [address] [address] Dec, [facility] [address] [address] Dec, Type 2 diabetes mellitus without complic ations E11.9 ; Encounter for immunization Z23 and Neck pain M54.2 [facility] [address] [address] Dec, [facility] [address] [address] Nov, [facility] [address] [address] Nov, [facility] [address] [address] Oct, [facility] [address] [address] Oct, [facility] [address] [address] Sep, [facility] [address] [address] Sep, Coronary atherosclerosis of unspecified type of vessel, [place] or graft 414.00 ; Diabetes mellitus without mention of complication, type II or unspecified type, not stated as uncontrolled 250.00 ; Hyperlipidemia 272.4 and HTN (hypertension) 401.9 [facility] [address] [address] Aug, [facility] [address] [address] July, [facility] [address] [address] Jun, [facility] [address] [address] Jun, [facility] [address] [address] May, [facility] [address] [id number] [place] [address] May, [facility] [address] [id number] [facility] [address] May, [facility] [address] [id number] [place] [address] May, [facility] [address] [id number] [place] [address] Apr, [facility] [address] [facility] [id number] [facility] [address] Apr, [facility] [address] [id number] [place] [address] Apr, [facility] [address] [id number] [place] [address] Apr, [facility] [address] [id number] [place] [address] Apr, [facility] [address] [id number] [place] [address] Apr, [facility] [address] [id number] [place] [address] Apr, [facility] [address] [id number] [place] [address] Apr, [facility] [address] [id number] [place] [address] Mar, [facility] [address] [id number] [place] [address] Mar, [facility] [address] [id number] [place] [address] Mar, [facility] [address] [id number] [place] [address] Mar, [facility] [address] [id number] [place] [address] Mar, [facility] [address] [id number] [place] [address] Mar, [facility] [address] [id number] [place] [address] Mar, [facility] [address] [id number] [place] [address] Mar, [facility] [address] [id number] [place] [address] Feb, [facility] [address] [id number] [place] [address] Feb, [facility] [address] [id number] [place] [address] Feb, [facility] [address] [id number] [place] [address] Feb, [facility] [address] [id number] [place] [address] Feb, [facility] [address] [id number] [place] [address] Feb, [facility] [address] [id number] [place] [address] Feb, [facility] [address] [id number] [place] [address] Feb, [facility] [address] [id number] [place] [address] Feb, [facility] [address] [id number] [place] [address] Feb, [facility] [address] [id number] [place] [address] Jan, [facility] [address] [id number] [place] [address] Jan, [facility] [address] [id number] [place] [address] Dec, [facility] [address] [id number] [place] [address] Dec, [facility] [address] [facility] [id number] [place] [address] Dec, [facility] [address] [id number] [place] [address] Dec, [facility] [address] [id number] [place] [address] Nov, [facility] [address] [id number] [place] [address] Nov, [facility] [address] [facility] [id number] [place] [address] Nov, [facility] [address] [id number] [place] [address] Nov, [facility] [address] [id number] [place] [address] Oct, [facility] [address] [id number] [place] [address] Oct, [facility] [address] [id number] [place] [address] Oct, [facility] [address] [id number] [place] [address] Oct, [facility] [address] [id number] [place] [address] Oct, [facility] [address] [id number] [place] [address] Sep, [facility] [address] [id number] [place] [address] Sep, 2013 [facility] [address] [id number] [place] [address] Sep, [facility] [address] [id number] [place] [address] Sep, 2013 [facility] [address] [id number] [place] [address] Sep, 2013 [facility] [address] [id number] [place] [address] Sep, [facility] [address] [facility] [id number] [place] [address] Aug, [facility] [address] [facility] [id number] [place] [address] Aug, [facility] [address] [id number] [place] [address] Aug, [facility] [address] [id number] [place] [address] Aug, [facility] [address] [facility] [id number] [place] [address] Aug, [facility] [address] [id number] [place] [address] Aug, [facility] [address] [id number] [place] [address] July, [facility] [address] [id number] [place] [address] July, [facility] [address] [id number] [place] [address] Jun, [facility] [address] [id number] [place] [address] Jun, [facility] [address] [id number] [place] [address] May, [facility] [address] [id number] [place] [address] May, [facility] [address] [id number] [place] [address] May, [facility] [address] [id number] [place] [address] May, [facility] [address] [id number] [place] [address] Apr, [facility] [address] [id number] [place] [address] Apr, [facility] [address] [id number] [place] [address] 10 Apr, 2013 [facility] [id number] [place] [address] Apr, 2013 [facility] [address] [id number] [place] [address] Apr, [facility] [id number] [place] [address] Apr, [facility] [id number] [place] [address] Feb, [facility] [id number] [place] [address] Feb, [facility] [id number] [place] [address] Feb, [facility] [id number] [place] [address] Feb, [facility] [id number] [place] [address] Jan, [facility] [id number] [place] [address] Jan, [facility] [id number] [place] [address] Dec, [facility] [id number] [place] [address] Dec, [facility] [id number] [place] [address] Dec, [facility] [id number] [place] [address] Dec, [facility] [id number] [place] [address] Oct, [facility] [address] [id number] [place] [id number] Oct, [facility] [address] [id number] [place] [id number] Oct, [facility] [address] [id number] [place] [address] Oct, [facility] [address] [id number] [place] [address] Sep, [facility] [address] [id number] [place] [address] Sep, [facility] [address] [id number] [place] [address] Aug, [facility] [address] [id number] [place] [address] Aug, [facility] [address] [id number] [place] [address] Aug, [facility] [address] [id number] [place] [address] Aug, [facility] [address] [id number] [place] [address] July, [facility] [address] [id number] [place] [address] Jun, [facility] [address] [id number] [place] [address] May, [facility] [address] [id number] [place] [address] May, [facility] [address] [id number] [place] [address] May, [facility] [address] [id number] [place] [address] May, [facility] [address] [id number] [place] [address] May, [facility] [address] [id number] [place] [address] Apr, [facility] [address] [id number] [place] [address] Apr, [facility] [address] [id number] [place] [address] 07 Apr, 2012 [facility] [address] [id number] [place] [address] Apr, [facility] [address] [id number] [place] [address] Mar, [facility] [address] [id number] [place] [address] Mar, [facility] [address] [id number] [place] [address] Mar, [facility] [address] [id number] [place] [address] Mar, [facility] [address] [id number] [place] [address] Jan, [facility] [address] [id number] [place] [address] Jan, [facility] [id number] [place] [address] Jan, [facility] [address] [id number] [place] [address] Jan, [facility] [address] [id number] [place] [address] Jan, [facility] [address] [id number] [place] [address] Jan, [facility] [address] [id number] [place] [address] Jan, [facility] [address] [id number] [place] [address] Jan, [facility] [id number] [place] [address] Jan, [facility] [address] [id number] [place] [address] Jan, [facility] [address] [id number] [place] [address] Dec, [facility] [address] [id number] [place] [address] Dec, [facility] [address] [id number] [place] [address] Dec, [facility] [address] [id number] [place] [address] Nov, [facility] [id number] [place] [address] Nov, [facility] [id number] [place] [address] Nov, [facility] [id number] [place] [address] Nov, [facility] [address] [id number] [place] [address] Oct, [facility] [address] [id number] [place] [address] Oct, IMMUNIZATIONS No Known Immunizations SOCIAL HISTORY [...] egd 01/2019 Hospitalization History surgeries Hospitalization [place] 06/2018 Hospitalization History [facility]- 07/2018 [facility] - [facility] and [facility]hab -03/02/2019
--- OUTSIDE RECORDS SUMMARY | 2019-07-20 17:14 | XMS REPORT ---
Author Author Sarah uRby Doctor Organization [facility] Address Unknown Phone Unavailable Care Team Providers Care System Technologist Name Role Phone Migration, Doctor Unavailable Unavailable PROBLEMS Type Condition ICD9-CM Code HJM90-WT Code Onset Dates Condition S tatus SNOMED Code Problem Coronary artery disease invo lving [place] coronary artery of [place] heart without angina pectoris I25.10 Active 1641 [id number] Problem Hyperlipidemia, unspecified hyperlipidemia type E7 8.5 Active 76682641 Problem Paresthesias in right hand R20.2 Act chidi 945596074 Problem Neck pain M54.2 Active 13379009 Problem GERD (gastroesophageal reflux disease) K21.9 Active 322665547 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 9 Active 890028661 Problem Type 2 diabetes mellitus with unspecified complications E11.8 Active 44201947 Problem Paroxysmal atrial fibrillation I48.0 Active 666083184 Problem Obesity (BMI 30-39.9) E66.9 Active [id number] ALLERGIES No Information ENCOUNTERS Encounter Location Date Diagnosis [facility] [address] [id number] [place] [address] May, [facility] [id number] [place] [address] Mar, [facility] [id number] [place] [address] Mar, [facility] [address] [id number] [place] [address] Mar, [facility] [id number] [place] [address] Mar, [facility] [id number] [place] [address] Mar, [facility] [place] [facility] [address] [facility] [address] [place] [address] Mar, [facility] [address] [place] [address] Mar, [facility] [id number] [place] [address] Mar, [facility] [id number] [place] [address] Mar, [facility] [id number] [place] [address] Mar, [facility] [id number] [place] [address] Feb, [facility] [id number] [place] [address] Feb, Coronary artery disease involving [place] coronary artery of [place] heart without angina pectoris I25.10 ; Chronic kidney disease, stage 3 (moderate) N18.3 and Morbid (severe) obesity due to excess calories E66.01 [facility] [id number] [place] [address] Feb, [facility] [id number] [place] [address] Feb, [facility] [id number] [place] [address] Feb, [facility] [id number] [place] [address] Jan, [facility] [id number] [place] [address] Jan, [facility] [id number] [place] [address] Jan, [facility] [address] [id number] [place] [address] Jan, [facility] [id number] [place] [address] Jan, [facility] [address] [id number] [place] [address] Jan, [facility] [id number] [place] [address] Dec, [facility] [place] [address] [place] [address] Dec, [facility] [id number] [place] [address] Nov, [facility] [id number] [place] [address] Nov, [facility] [id number] [place] [address] Nov, [facility] [address] [id number] [place] [address] Nov, [facility] [place] [address] [place] [address] Oct, [facility] [address] [id number] [place] [address] Oct, [facility] [place] [address] [place] [address] Sep, [facility] [id number] [place] [address] Sep, [facility] [address] [id number] [place] [address] 14 Aug, 2018 Type 2 diabetes mellitus with unspecifie d complications E11.8 ; 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 and Obesity (BMI 30-39.9) E66.9 [facility] [place] [address] [place] [address] Aug, Type 2 diabetes mellitus wit hout complications E11.9 [address] [place] [address] Aug, Type 2 diabetes mellitus wit hout complications E11.9 [place] [address] [id number] [place] [address] Aug, [address] [place] [address] July, ferry terminal supervisor 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 ins ulin Z79.4 and Type 2 diabetes mellitus with unspecified complications E11.[address] [place] [address] July, Screening mammogram, encount er for Z12.31 [place] [address] [address] July, [place] [address] [address] July, Paroxysmal atrial fibrillation I48.0 and Coronary artery disease involving [place] coronary artery of [place] heart without angina pectoris I25.10 [place] [address] [address] Jun, [place] [address] [address] Jun, [place] [address] [address] May, [place] [address] [address] May, Type 2 diabetes mellitus with unspecifie d complications E11.8 ; 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 ; Leg cramps R25.2 ; Essential hypertension I10 and Routine adult health maintenance Z00.00 [place] [address] [address] Apr, [place] [address] [address] Apr, [place] [address] [address] Mar, Type 2 diabetes mellitus without complic ations E11.9 [facility] [address] [address] Mar, Type 2 diabetes mellitus without complic ations E11.9 [facility] [address] [address] Mar, Type 2 diabetes mellitus without complic ations E11.9 [facility] [address] [address] Feb, Essential (primary) hypertension I10 [place] [address] [address] Feb, [facility] [address] [address] Jan, Type 2 diabetes mellitus without complic ations E11.9 [facility] [address] [address] Dec, [facility] [address] [address] Dec, Type 2 diabetes mellitus with diabetic n europathy, unspecified E11.40 ; USP 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 and Chronic kidney disease, unspecified CKD stage N18.9 [facility] [address] [address] Dec, Type 2 diabetes mellitus without complic ations E11.9 [facility] [address] [address] Dec, [facility] [address] [address] Dec, Type 2 diabetes mellitus without complic ations E11.9 [facility] [address] [address] Dec, [facility] [address] [address] Oct, [facility] [id number] [place] [address] Sep, [facility] [address] [address] Aug, [facility] [address] [address] Aug, Exposure to hepatitis C Z20.5 and Routin e adult health maintenance Z00.00 [place] [address] [address] 11 Aug, 2017 Exposure to hepatitis C Z20.5 [place] [address] [address] 11 Aug, 2017 Medicare annual wellness visit, initial Z00.00 ; Coronary artery disease involving [place] coronary artery of [place] heart without angina pectoris I25.10 ; Hyperlipidemia, unspecified hyperlipidemia type E78.5 ; Essential hypertension I10 ; GERD (gastroesophageal reflux disease) K21.9 ; Routine adult health maintenance Z00.00 ; Encounter for immunization Z23 ; Type 2 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, unspecified E11.40 and 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 [place] [address] [address] 30 Jul, 2017 Type 2 diabetes mellitus without complic ations E11.9 and Type 2 diabetes mellitus without complications E11.9 [place] [address] [address] July, [place] [address] [address] July, [place] [address] [address] Mar, Type 2 diabetes mellitus without complic ations E11.9 [place] [address] [address] Mar, [place] [address] [address] Feb, Type 2 diabetes mellitus without complic ations E11.9 [place] [address] [address] Jan, Type 2 diabetes mellitus without complic ations E11.9 [place] [address] [address] Jan, Type 2 diabetes mellitus without complic ations E11.9 [facility] [address] [address] Nov, [place] [address] [address] Oct, Type 2 diabetes mellitus without complic ations E11.9 [place] [address] [address] Oct, Type 2 diabetes mellitus without complic ations E11.9 ; Essential hypertension I10 and Neck pain M54.2 [place] [address] [address] Sep, [place] [address] [address] Aug, Type 2 diabetes mellitus without complic ations E11.9 [place] [address] [address] Jun, Type 2 diabetes mellitus without complic ations E11.9 ; Neck pain M54.2 and Essential hypertension I10 [place] [address] [address] 17 Jun, 2016 [place] [address] [address] 14 Jun, 2016 [place] [address] [address] 10 Jun, 2016 GERD (gastroesophageal reflux disease) K 21.9 and Type 2 diabetes mellitus without complications E11.9 [place] [address] [address] Mar, Paresthesias in right hand R20.2 [place] [address] [address] Feb, Type 2 diabetes mellitus without complic ations E11.9 [facility] [address] [id number] Feb, Encounter for dental examination Z01.20 [facility] [address] [address] Feb, Type 2 diabetes mellitus without complic ations E11.9 and Neck pain M54.2 [facility] [address] [address] Feb, Type 2 diabetes mellitus without complic ations E11.9 [facility] [address] [id number] Jan, Dental examination Z01.20 [facility] [address] [address] Jan, [facility] [address] [address] Jan, [facility] [address] [id number] Dec, Dental caries K02.9 [facility] [address] [address] Nov, [facility] [address] [address] Nov, [facility] [address] [address] Oct, Type 2 diabetes mellitus without complic ations E11.9 ; Neck pain M54.2 and Essential hypertension I10 [facility] [address] [address] Oct, [facility] [address] [id number] Oct, Dental examination Z01.20 [facility] [address] [address] Sep, [facility] [address] [address] Sep, [facility] [id number] [place] [address] Aug, Essential (primary) hypertension I10 [facility] [id number] [place] [address] Aug, [facility] [id number] [place] [address] Aug, [facility] [address] [address] July, Essential (primary) hypertension I10 [facility] [address] [address] July, Essential (primary) hypertension I10 and Type 2 diabetes mellitus without complications E11.9 [facility] [address] [address] July, [facility] [address] [address] Jun, GERD (gastroesophageal reflux disease) K 21.9 [facility] [address] [address] 11 Jun, 2015 GERD (gastroesophageal reflux disease) K 21.9 [facility] [id number] [place] [address] 08 Jun, 2015 [facility] [address] [address] Jun, Neuropathy G62.9 [facility] [address] [id number] [place] [address] May, Essential (primary) hypertension I10 [facility] [address] [facility] [id number] [place] [address] May, Bronchitis J40 [facility] [address] [id number] [place] [address] 15 May, 2015 Type 2 diabetes mellitus without complic ations E11.9 and Essential (primary) hypertension I10 [facility] [address] [address] 10 May, 2015 [facility] [address] [address] 10 May, 2015 GERD (gastroesophageal reflux disease) K 21.9 [facility] [address] [address] 25 Apr, 2015 Other and unspecified hyperlipidemia 272 .4 ; Unspecified essential hypertension 401.9 ; Type 2 diabetes mellitus without complications E11.9 ; Neck pain M54.2 and Paresthesias in right hand R20.2 [facility] [address] [address] 11 Apr, 2015 [facility] [address] [address] Apr, Neuropathy G62.9 [facility] [address] [address] Mar, [facility] [address] [address] Feb, [facility] [address] [address] Jan, [facility] [address] [address] Dec, [facility] [address] [address] Dec, Type 2 diabetes mellitus without complic ations E11.9 ; Encounter for immunization Z23 and Neck pain M54.2 [facility] [address] [address] Dec, [facility] [address] [address] 14 Nov, 2014 [facility] [address] [address] 09 Nov, 2014 [facility] [address] [address] Oct, [facility] [id number] [place] [address] Oct, [facility] [id number] [place] [address] Sep, [facility] [id number] [place] [address] Sep, Coronary atherosclerosis of unspecified type of vessel, [place] or graft 414.00 ; Diabetes mellitus without mention of complication, type II or unspecified type, not stated as uncontrolled 250.00 ; Hyperlipidemia 272.4 and HTN (hypertension) 401.9 [facility] [id number] [place] [address] Aug, [facility] [id number] [place] [address] July, [facility] [id number] [place] [address] Jun, [facility] [id number] [place] [address] Jun, [facility] [id number] [place] [address] May, [facility] [id number] [place] [address] May, [facility] [id number] [place] [address] May, [facility] [id number] [place] [address] May, [facility] [id number] [place] [address] Apr, [facility] [id number] [place] [address] Apr, [facility] [id number] [place] [address] Apr, [facility] [id number] [place] [address] Apr, [facility] [address] [facility] [id number] [place] [address] Apr, [facility] [address] [id number] [place] [address] Apr, [facility] [address] [id number] [place] [address] Apr, [facility] [address] [id number] [place] [address] Apr, [facility] [address] [id number] [place] [address] Mar, [facility] [address] [id number] [place] [address] Mar, [facility] [address] [id number] [place] [address] Mar, [facility] [address] [id number] [place] [address] Mar, [facility] [address] [id number] [place] [address] Mar, [facility] [address] [id number] [place] [address] Mar, [facility] [address] [id number] [place] [address] Mar, [facility] [address] [id number] [place] [address] Mar, [facility] [address] [id number] [place] [address] Feb, [facility] [address] [id number] [place] [address] Feb, [facility] [address] [id number] [place] [address] Feb, [facility] [address] [id number] [place] [address] Feb, [facility] [address] [id number] [place] [address] Feb, [facility] [address] [id number] [place] [address] Feb, [facility] [address] [id number] [place] [address] Feb, [facility] [address] [id number] [place] [address] Feb, [facility] [address] [id number] [place] [address] Feb, [facility] [address] [id number] [place] [address] Feb, [facility] [address] [id number] [place] [address] Jan, [facility] [address] [id number] [place] [address] Jan, [facility] [address] [id number] [place] [address] Dec, [facility] [address] [id number] [place] [address] Dec, [facility] [address] [id number] [place] [address] Dec, [facility] [address] [id number] [place] [address] Dec, [facility] [address] [id number] [place] [address] Nov, [facility] [address] [id number] [place] [address] Nov, [facility] [id number] [place] [address] Nov, [facility] [address] [id number] [place] [address] Nov, [facility] [address] [id number] [place] [address] Oct, [facility] [address] [id number] [place] [address] Oct, [facility] [address] [id number] [place] [address] Oct, [facility] [address] [id number] [place] [address] Oct, [facility] [address] [id number] [place] [address] Oct, [facility] [address] [id number] [place] [address] Sep, 2013 [facility] [address] [id number] [place] [address] Sep, [facility] [address] [id number] [place] [address] Sep, 2013 [facility] [address] [id number] [place] [address] Sep, 2013 [facility] [address] [id number] [place] [address] Sep, [facility] [address] [id number] [place] [address] Sep, [facility] [address] [id number] [place] [address] Aug, [facility] [address] [id number] [place] [address] Aug, [facility] [address] [id number] [place] [address] Aug, [facility] [address] [id number] [place] [address] Aug, [facility] [address] [id number] [place] [address] Aug, [facility] [address] [id number] [place] [address] Aug, 2013 [facility] [address] [id number] [place] [address] July, [facility] [address] [id number] [place] [address] July, [facility] [address] [id number] [facility] [place] [address] Jun, [facility] [address] [id number] [place] [address] Jun, [facility] [address] [id number] [place] [address] May, [facility] [address] [facility] [id number] [facility] [place] [address] May, [facility] [address] [id number] [place] [address] May, [facility] [address] [id number] [place] [address] May, [facility] [address] [id number] [facility] [place] [address] Apr, [facility] [address] [id number] [place] [address] Apr, [facility] [address] [id number] [place] [address] Apr, [facility] [address] [id number] [place] [address] Apr, [facility] [address] [id number] [place] [address] Apr, [facility] [address] [id number] [place] [address] Apr, [facility] [address] [id number] [place] [address] Feb, [facility] [address] [id number] [place] [address] Feb, [facility] [address] [id number] [place] [address] Feb, [facility] [address] [id number] [place] [address] Feb, [facility] [address] [id number] [place] [address] Jan, [facility] [address] [id number] [place] [address] Jan, [facility] [address] [id number] [place] [address] Dec, [facility] [address] [id number] [place] [address] Dec, [facility] [address] [id number] [place] [address] Dec, [facility] [address] [id number] [place] [address] Dec, [facility] [id number] [place] [address] Oct, [facility] [address] [id number] Oct, [facility] [address] [address] [id number] Oct, [facility] [address] [id number] [place] [address] Oct, [facility] [address] [id number] [place] [address] Sep, [facility] [address] [id number] [place] [address] Sep, [facility] [address] [id number] [place] [address] Aug, [facility] [address] [id number] [place] [address] Aug, [facility] [address] [id number] [place] [address] Aug, [facility] [address] [id number] [place] [address] Aug, [facility] [address] [id number] [place] [address] July, [facility] [address] [id number] [place] [address] Jun, [facility] [address] [id number] [place] [address] May, [facility] [address] [id number] [place] [address] May, [facility] [address] [id number] [place] [address] May, [facility] [address] [id number] [place] [address] May, [facility] [address] [id number] [place] [address] May, [facility] [address] [id number] [place] [address] Apr, [facility] [address] [id number] [place] [address] Apr, [facility] [address] [id number] [place] [address] Apr, [facility] [address] [id number] [place] [address] Apr, [facility] [address] [id number] [place] [address] Mar, [facility] [address] [id number] [place] [address] Mar, [facility] [address] [id number] [place] [address] Mar, [facility] [address] [id number] [place] [address] Mar, [facility] [address] [id number] [place] [address] Jan, [facility] [address] [id number] [place] [address] 16 Jan, 2012 [facility] [address] [id number] [place] [address] Jan, [facility] [address] [id number] [place] [address] Jan, [facility] [address] [id number] [place] [address] Jan, [facility] [address] [id number] [place] [address] Jan, [facility] [address] [id number] [place] [address] Jan, [facility] [address] [id number] [place] [address] Jan, [facility] [address] [id number] [place] [address] Jan, [facility] [address] [id number] [place] [address] Jan, [facility] [address] [id number] [place] [address] Dec, [facility] [address] [id number] [place] [address] Dec, [facility] [address] [id number] [place] [address] Dec, [facility] [address] [id number] [place] [address] Nov, [facility] [address] [id number] [place] [address] 26 Nov, 2011 [facility] [address] [id number] [place] [address] Nov, [facility] [address] [id number] [place] [address] Nov, [facility] [address] [id number] [place] [address] Oct, [facility] [address] [facility] [id number] [place] [address] Oct, IMMUNIZATIONS No Known Immunizations SOCIAL HISTORY Never Assessed REASON FOR VISIT PLAN OF CARE VITAL SIGNS Height 64 in 2013-07-28 Weight 190 lbs 2013-07-28 Temperature 98 degrees Fahrenheit 2013-07-28 Heart Rate 82 bpm 2013-07-28 Respiratory Rate 20 2013-07-28 Blood pressure systolic 152 mmHg 2013-07-28 Blood pressure diastolic 84 mmHg 2013-07-28 MEDICATIONS Unknown Medications RESULTS No Results PROCEDURES Procedure Date Ordered Result Body Site HT MUSCLE IMAGE SPECT MULT July 28, 2013 TTE W/DOPPLER, COMPLETE July 28, 2013 INSTRUCTIONS MEDICATIONS ADMINISTERED No Known Medications [...] egd 01/2019 Hospitalization History surgeries Hospitalization History [facility] 06/2018 Hospitalization History [facility] 07[facility]2018 Hospitalization History [facility] - heart attack and rehab -03/02/2019
--- OUTSIDE RECORDS SUMMARY | 2019-07-20 17:14 | XMS REPORT ---
Author Author Sarah AMADO Organization [facility] Address [address] [place] [address] Care Team Providers Care Input Output Clerk Name Role Phone GEE AMADO Unavailable PROBLEMS Type Condition ICD9-CM Code OPF74-BT Code Onset Dates Condition S tatus SNOMED Code Problem Coronary artery disease invo lving [place] coronary artery of [place] heart without angina pectoris I25.10 Active 1641 [id number] Problem Hyperlipidemia, unspecified hyperlipidemia type E7 8.5 Active 10088931 Problem Paresthesias in right hand R20.2 Act chidi 228184110 Problem Neck pain M54.2 Active 80646487 Problem GERD (gastroesophageal reflux disease) K21.9 Active 445228001 Problem longterm 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 Active 280037961 Problem Type 2 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, uns pecified E11.40 Active 65665326 Problem Chronic kidney disease, stage 3 (moderate) N18.3 Active 307882786 Problem Essential hypertension I10 Active 83719310 Problem Morbid (severe) obesity due to excess calories E66 .01 Active 312467731 Problem Type 2 diabetes mellitus without complications E11 .9 Active 325634095 Problem Chronic kidney disease, unspecified CKD stage N18. 9 Active 882589436 Problem Type 2 diabetes mellitus with unspecified complications E11.8 Active 45057846 Problem Paroxysmal atrial fibrillation I48.0 Active 167389676 Problem Obesity (BMI 30-39.9) E66.9 Active 382487273 ALLERGIES No Information ENCOUNTERS Encounter Location Date Diagnosis [facility] [address] [id number] [place] [address] May, [address] [place] [address] Apr, [facility] [address] [id number] [place] [address] Mar, [facility] [id number] [place] [address] Mar, [facility] [id number] [place] [address] Mar, [facility] [id number] [place] [address] Mar, [facility] [id number] [place] [address] Mar, [facility] [place] [address] [place] [address] Mar, [address] [place] [address] Mar, [facility] [id number] [place] [address] Mar, [facility] [id number] [place] [address] Mar, [facility] [id number] [place] [address] Mar, [facility] [id number] [place] [address] Feb, [facility] [id number] [place] [address] Feb, Coronary artery disease involving [place] coronary artery of [place] heart without angina pectoris I25.10 ; Chronic kidney disease, stage 3 (moderate) N18.3 and Morbid (severe) obesity due to excess calories E66.01 [facility] [id number] [place] [address] Feb, [facility] [id number] [place] [address] Feb, [facility] [id number] [place] [address] Feb, [facility] [id number] [place] [address] Jan, [facility] [address] [id number] [place] [address] Jan, [facility] [address] [id number] [place] [address] Jan, [facility] [address] [id number] [place] [address] Jan, [facility] [id number] [place] [address] Jan, [facility] [address] [id number] [place] [address] Jan, [facility] [address] [id number] [place] [address] Dec, [facility] [place] [address] [place] [address] Dec, [facility] [id number] [place] [address] Nov, [facility] [address] [id number] [place] [address] Nov, [facility] [id number] [place] [address] Nov, [facility] [address] [id number] [place] [address] Nov, [facility] [place] [address] [place] [address] Oct, [facility] [address] [id number] [place] [address] Oct, [facility] [place] [address] [place] [address] Sep, [facility] [id number] [place] [address] Sep, [facility] [address] 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 and Type 2 diabetes mellitus with unspecified complications E11.[address] [place] [address] July, Screening mammogram, encount er for Z12.31 [address] [address] [address] [address] July, [address] [address] [address] [address] July, Paroxysmal atrial fibrillation I48.0 and Coronary artery disease involving [place] coronary artery of [place] heart without angina pectoris I25.10 [address] [address] [address] [address] Jun, [address] [address] [address] Jun, [address] [address] [address] [address] May, [address] [address] [address] May, Type 2 diabetes mellitus with unspecifie d complications E11.8 ; longterm 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 ; Leg cramps R25.2 ; Essential hypertension I10 and Routine adult health maintenance Z00.00 [address] [address] [address] [address] 07 Apr, 2018 [facility] [id number] [place] [address] Apr, [facility] [address] [address] Mar, Type 2 diabetes mellitus without complic ations E11.9 [facility] [address] [address] Mar, Type 2 diabetes mellitus without complic ations E11.9 [facility] [address] [address] Mar, Type 2 diabetes mellitus without complic ations E11.9 [facility] [address] [address] Feb, Essential (primary) hypertension I10 [place] [address] [address] Feb, [facility] [address] [address] Jan, Type 2 diabetes mellitus without complic ations E11.9 [facility] [address] [address] Dec, [facility] [address] [address] Dec, Type 2 diabetes mellitus with diabetic n europathy, unspecified E11.40 ; longterm 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 and Chronic kidney disease, unspecified CKD stage N18.9 [facility] [address] [place] [address] Dec, Type 2 diabetes mellitus without complic ations E11.9 [address] [address] [address] [address] Dec, [facility] [address] [address] Dec, Type 2 diabetes mellitus without complic ations E11.9 [facility] [id number] [place] [address] Dec, [facility] [id number] [place] [address] Oct, [facility] [id number] [place] [address] Sep, [facility] [id number] [place] [address] Aug, [facility] [address] [address] Aug, Exposure to hepatitis C Z20.5 and Routin e adult health maintenance Z00.00 [address] [address] [address] 11 Aug, 2017 Exposure to hepatitis C Z20.5 [place] [address] [address] 11 Aug, 2017 Medicare annual wellness visit, initial Z00.00 ; Coronary artery disease involving [place] coronary artery of [place] heart without angina pectoris I25.10 ; Hyperlipidemia, unspecified hyperlipidemia type E78.5 ; Essential hypertension I10 ; GERD (gastroesophageal reflux disease) K21.9 ; Routine adult health maintenance Z00.00 ; Encounter for immunization Z23 ; Type 2 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, unspecified E11.40 and longterm 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 [address] [id number] [place] [address] July, Type 2 diabetes mellitus without complic ations E11.9 and Type 2 diabetes mellitus without complications E11.9 [address] [address] [id number] [place] [address] July, [address] [address] [address] [address] July, [place] [address] [address] [address] Mar, Type 2 diabetes mellitus without complic ations E11.9 [place] [address] [address] Mar, [facility] [address] [address] Feb, Type 2 diabetes mellitus without complic ations E11.9 [facility] [address] [address] Jan, Type 2 diabetes mellitus without complic ations E11.9 [facility] [address] [address] Jan, Type 2 diabetes mellitus without complic ations E11.9 [facility] [address] [address] Nov, [facility] [address] [address] Oct, Type 2 diabetes mellitus without complic ations E11.9 [address] [address] [address] [address] Oct, Type 2 diabetes mellitus without complic ations E11.9 ; Essential hypertension I10 and Neck pain M54.2 [facility] [address] [address] Sep, [facility] [address] [address] Aug, Type 2 diabetes mellitus without complic ations E11.9 [facility] [address] [address] Jun, Type 2 diabetes mellitus without complic ations E11.9 ; Neck pain M54.2 and Essential hypertension I10 [facility] [address] [address] Jun, [facility] [address] [address] Jun, [facility] [address] [address] 10 Jun, 2016 GERD (gastroesophageal reflux disease) K 21.9 and Type 2 diabetes mellitus without complications E11.9 [place] [address] [address] Mar, Paresthesias in right hand R20.2 [facility] [address] [address] Feb, Type 2 diabetes mellitus without complic ations E11.9 [facility] [address] [id number] Feb, Encounter for dental examination Z01.20 [facility] [address] [address] Feb, Type 2 diabetes mellitus without complic ations E11.9 and Neck pain M54.2 [facility] [address] [address] Feb, Type 2 diabetes mellitus without complic ations E11.9 [facility] [address] [id number] Jan, Dental examination Z01.20 [facility] [address] [address] Jan, [facility] [address] [address] Jan, [facility] [address] [id number] Dec, Dental caries K02.9 [facility] [address] [address] Nov, [facility] [address] [address] Nov, [facility] [address] [address] Oct, Type 2 diabetes mellitus without complic ations E11.9 ; Neck pain M54.2 and Essential hypertension I10 [facility] [address] [address] Oct, [facility] [address] [id number] Oct, Dental examination Z01.20 [facility] [id number] [place] [address] Sep, [facility] [id number] [place] [address] Sep, [facility] [id number] [place] [address] Aug, Essential (primary) hypertension I10 [facility] [id number] [place] [address] Aug, [facility] [id number] [place] [address] Aug, [facility] [id number] [place] [address] July, Essential (primary) hypertension I10 [facility] [address] [address] July, Essential (primary) hypertension I10 and Type 2 diabetes mellitus without complications E11.9 [facility] [id number] [place] [address] July, [facility] [id number] [place] [address] Jun, GERD (gastroesophageal reflux disease) K 21.9 [facility] [id number] [place] [address] Jun, GERD (gastroesophageal reflux disease) K 21.9 [facility] [address] [facility] [place] [address] Jun, [facility] [id number] [place] [address] Jun, Neuropathy G62.9 [facility] [address] [id number] [place] [address] May, Essential (primary) hypertension I10 [facility] [address] [facility] [id number] [place] [address] May, Bronchitis J40 [facility] [address] [address] 15 May, 2015 Type 2 diabetes mellitus without complic ations E11.9 and Essential (primary) hypertension I10 [facility] [address] [address] 10 May, 2015 [facility] [address] [address] 10 May, 2015 GERD (gastroesophageal reflux disease) K 21.9 [facility] [address] [address] 25 Apr, 2015 Other and unspecified hyperlipidemia 272 .4 ; Unspecified essential hypertension 401.9 ; Type 2 diabetes mellitus without complications E11.9 ; Neck pain M54.2 and Paresthesias in right hand R20.2 [facility] [address] [address] 11 Apr, 2015 [facility] [address] [address] Apr, Neuropathy G62.9 [facility] [address] [address] Mar, [facility] [address] [address] Feb, [facility] [address] [address] Jan, [facility] [address] [address] Dec, [facility] [address] [address] 13 Dec, 2014 Type 2 diabetes mellitus without complic ations E11.9 ; Encounter for immunization Z23 and Neck pain M54.2 [facility] [address] [address] 09 Dec, 2014 [facility] [address] [address] 14 Nov, 2014 [facility] [id number] [place] [address] Nov, [facility] [address] [place] [address] Oct, [facility] [id number] [place] [address] Oct, [facility] [address] [address] Sep, [facility] [id number] [place] [address] Sep, Coronary atherosclerosis of unspecified type of vessel, [place] or graft 414.00 ; Diabetes mellitus without mention of complication, type II or unspecified type, not stated as uncontrolled 250.00 ; Hyperlipidemia 272.4 and HTN (hypertension) 401.9 [facility] [id number] [place] [address] Aug, [facility] [address] [address] July, [facility] [id number] [place] [address] Jun, [facility] [address] [address] Jun, [facility] [id number] [place] [address] May, [facility] [id number] [place] [address] May, [facility] [id number] [place] [address] May, [facility] [address] [address] May, [facility] [id number] [place] [address] Apr, [facility] [address] [address] Apr, [facility] [address] [facility] [id number] [place] [address] Apr, [facility] [address] [id number] [place] [address] Apr, [facility] [address] [id number] [place] [address] Apr, [facility] [address] [id number] [place] [address] Apr, [facility] [address] [facility] [id number] [place] [address] Apr, [facility] [address] [id number] [place] [address] Apr, [facility] [address] [id number] [place] [address] Mar, [facility] [address] [id number] [place] [address] Mar, [facility] [address] [id number] [place] [address] Mar, [facility] [address] [id number] [place] [address] Mar, [facility] [address] [id number] [place] [address] Mar, [facility] [address] [id number] [place] [address] Mar, [facility] [address] [id number] [place] [address] Mar, [facility] [address] [id number] [place] [address] Mar, [facility] [address] [id number] [place] [address] Feb, [facility] [address] [id number] [place] [address] Feb, [facility] [address] [id number] [place] [address] 16 Feb, 2014 [facility] [address] [id number] [place] [address] Feb, [facility] [address] [id number] [place] [address] Feb, [facility] [address] [id number] [place] [address] Feb, [facility] [address] [id number] [place] [address] Feb, [facility] [address] [id number] [place] [address] Feb, [facility] [address] [id number] [place] [address] Feb, [facility] [address] [id number] [place] [address] Feb, [facility] [address] [id number] [place] [address] Jan, [facility] [address] [id number] [place] [address] Jan, [facility] [address] [id number] [place] [address] Dec, [facility] [address] [id number] [place] [address] Dec, [facility] [address] [id number] [place] [address] Dec, [facility] [address] [id number] [place] [address] Dec, [facility] [address] [id number] [place] [address] 15 Nov, 2013 [facility] [address] [id number] [place] [address] Nov, [facility] [address] [id number] [place] [address] Nov, [facility] [id number] [place] [address] Nov, [facility] [address] [id number] [place] [address] Oct, [facility] [address] [id number] [place] [address] Oct, [facility] [address] [id number] [place] [address] Oct, [facility] [address] [facility] [id number] [place] [address] Oct, [facility] [address] [id number] [place] [address] Oct, [facility] [address] [id number] [place] [address] Sep, [facility] [address] [id number] [place] [address] Sep, [facility] [address] [id number] [place] [address] Sep, 2013 [facility] [address] [id number] [place] [address] Sep, [facility] [address] [id number] [place] [address] Sep, 2013 [facility] [address] [id number] [place] [address] Sep, [facility] [address] [id number] [place] [address] Aug, [facility] [address] [id number] [place] [address] Aug, [facility] [address] [id number] [place] [address] Aug, [facility] [address] [id number] [place] [address] Aug, [facility] [address] [id number] [place] [address] Aug, [facility] [address] [facility] [id number] [facility] [address] Aug, [facility] [address] [facility] [id number] [facility] [place] [address] July, [facility] [address] [facility] [id number] [facility] [place] [address] July, [facility] [address] [id number] [facility] [address] Jun, [facility] [address] [facility] [id number] [facility] [address] Jun, [facility] [address] [id number] [place] [address] May, [facility] [address] [id number] [place] [address] May, [facility] [address] [id number] [place] [address] May, [facility] [address] [id number] [place] [address] May, [facility] [address] [id number] [place] [address] Apr, [facility] [facility] [address] [id number] [place] [address] Apr, [facility] [address] [id number] [place] [address] Apr, [facility] [address] [id number] [place] [address] Apr, [facility] [address] [id number] [place] [address] Apr, [facility] [address] [id number] [place] [address] Apr, [facility] [address] [id number] [place] [address] Feb, [facility] [address] [id number] [place] [address] Feb, [facility] [address] [id number] [place] [address] Feb, [facility] [address] [id number] [place] [address] Feb, [facility] [address] [id number] [place] [address] Jan, [facility] [address] [id number] [place] [address] Jan, [facility] [address] [id number] [place] [address] Dec, [facility] [address] [id number] [place] [address] Dec, [facility] [address] [id number] [place] [address] Dec, [facility] [address] [id number] [place] [address] Dec, [facility] [address] [id number] [place] [address] Oct, [facility] [address] [id number] [place] [id number] Oct, [facility] [address] [id number] [place] [id number] Oct, [facility] [address] [id number] [place] [address] Oct, [facility] [address] [id number] [place] [address] Sep, [facility] [address] [id number] [place] [address] Sep, [facility] [address] [id number] [place] [address] Aug, [facility] [address] [id number] [place] [address] Aug, [facility] [address] [id number] [place] [address] Aug, [facility] [address] [id number] [place] [address] Aug, [facility] [address] [id number] [place] [address] July, [facility] [address] [id number] [place] [address] Jun, [facility] [address] [id number] [place] [address] May, [facility] [address] [id number] [place] [address] May, [facility] [address] [id number] [place] [address] May, [facility] [address] [id number] [place] [address] May, [facility] [address] [id number] [place] [address] May, [facility] [address] [id number] [place] [address] Apr, [facility] [address] [id number] [place] [address] Apr, [facility] [address] [id number] [place] [address] Apr, [facility] [address] [id number] [place] [address] Apr, [facility] [address] [id number] [place] [address] Mar, [facility] [address] [id number] [place] [address] Mar, [facility] [address] [id number] [place] [address] Mar, [facility] [address] [id number] [place] [address] Mar, [facility] [address] [id number] [place] [address] Jan, [facility] [address] [id number] [place] [address] Jan, [facility] [address] [id number] [place] [address] Jan, [facility] [address] [id number] [place] [address] Jan, [facility] [address] [id number] [place] [address] Jan, [facility] [address] [id number] [place] [address] Jan, [facility] [address] [id number] [place] [address] Jan, [facility] [address] [id number] [place] [address] Jan, [facility] [address] [id number] [place] [address] Jan, [facility] [id number] [place] [address] Jan, [facility] [id number] [place] [address] Dec, [facility] [address] [id number] [place] [address] Dec, [facility] [address] [id number] [place] [address] Dec, [facility] [address] [id number] [place] [address] 27 Nov, 2011 [facility] [address] [id number] [place] [address] 26 Nov, 2011 [facility] [address] [id number] [place] [address] 12 Nov, 2011 [facility] [address] [id number] [place] [address] Nov, [facility] [address] [facility] [id number] [place] [address] Oct, [facility] [address] [facility] [id number] [place] [address] Oct, IMMUNIZATIONS No Known Immunizations SOCIAL HISTORY Never Assessed REASON FOR VISIT PLAN OF CARE VITAL SIGNS MEDICATIONS Unknown Medications RESULTS No Results PROCEDURES Procedure Date Ordered Result Body Site COMPLETE CBC W/AUTO DIFF WBC May 30, 2013 ASSAY THYROID STIM HORMONE May 30, 2013 ASSAY OF MAGNESIUM May 30, 2013 LIPID PANEL May 30, 2013 COMPREHEN METABOLIC PANEL May 30, 2013 ELECTROCARDIOGRAM, TRACING May 30, 2013 VENIPUNCT, ROUTINE* May 30, 2013 INSTRUCTIONS MEDICATIONS ADMINISTERED No Known Medications [...] surgeries Hospitalization History [facility] 06/2018 Hospitalization History [facility]- 07/2018 Hospital[facility] - heart attack and rehab -03/02/2019
--- OUTSIDE RECORDS SUMMARY | 2019-07-20 17:14 | XMS REPORT ---
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.10 Active 1641 [id number] Problem Hyperlipidemia, unspecified hyperlipidemia type E7 8.5 Active 41444544 Problem Paresthesias in right hand R20.2 Act chidi 150328947 Problem Neck pain M54.2 Active 98941521 Problem GERD (gastroesophageal reflux disease) K21.9 Active 332483776 Problem retirement 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 Active 449579874 Problem Type 2 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, uns pecified E11.40 Active 69791134 Problem Chronic kidney disease, stage 3 (moderate) N18.3 Active 444641955 Problem Essential hypertension I10 Active 99865977 Problem Morbid (severe) obesity due to excess calories E66 .01 Active 017461506 Problem Type 2 diabetes mellitus without complications E11 .9 Active 619015764 Problem Chronic kidney disease, unspecified CKD stage N18. 9 Active 249272473 Problem Type 2 diabetes mellitus with unspecified complications E11.8 Active 81169826 Problem Paroxysmal atrial fibrillation I48.0 Active 522216252 Problem Obesity (BMI 30-39.9) E66.9 Active 412938363 ALLERGIES No Information ENCOUNTERS Encounter Location Date Diagnosis [facility] [address] [id number] [place] [address] May, [address] [place] [address] Apr, [facility] [address] [id number] [place] [address] Mar, [facility] [id number] [place] [address] Mar, [facility] [id number] [place] [address] Mar, [facility] [id number] [place] [address] Mar, [facility] [id number] [place] [address] Mar, [facility] [place] [address] [place] [address] Mar, [address] [place] [address] Mar, [facility] [id number] [place] [address] Mar, [facility] [id number] [place] [address] Mar, [facility] [id number] [place] [address] Mar, [facility] [id number] [place] [address] Feb, [facility] [id number] [place] [address] Feb, Coronary artery disease involving southern ute coronary artery of southern ute heart without angina pectoris I25.10 ; Chronic kidney disease, stage 3 (moderate) N18.3 and Morbid (severe) obesity due to excess calories E66.01 [facility] [id number] [place] [address] Feb, [facility] [id number] [place] [address] Feb, [facility] [id number] [place] [address] Feb, [facility] [id number] [place] [address] Jan, [facility] [address] [id number] [place] [address] Jan, [facility] [address] [id number] [place] [address] Jan, [facility] [address] [id number] [place] [address] Jan, [facility] [id number] [place] [address] Jan, [facility] [address] [id number] [place] [address] Jan, [facility] [address] [id number] [place] [address] Dec, [facility] [place] [address] [place] [address] Dec, [facility] [id number] [place] [address] Nov, [facility] [address] [id number] [place] [address] Nov, [facility] [id number] [place] [address] Nov, [facility] [address] [id number] [place] [address] Nov, [facility] [place] [address] [place] [address] Oct, [facility] [address] [id number] [place] [address] Oct, [facility] [place] [address] [place] [address] Sep, [facility] [id number] [place] [address] Sep, [facility] [address] [id number] [place] [address] Aug, Type 2 diabetes mellitus with unspecifie d complications E11.8 ; retirement 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 and Obesity (BMI 30-39.9) E66.9 [address] [place] [address] Aug, Type 2 diabetes mellitus wit hout complications E11.9 [address] [place] [address] Aug, Type 2 diabetes mellitus wit hout complications E11.9 [place] [id number] [place] [address] Aug, [address] [place] [address] July, 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 and Type 2 diabetes mellitus with unspecified complications E11.8 [address] [place] [address] July, Screening mammogram, encount er for Z12.31 [place] [address] [address] July, [place] [address] [address] July, Paroxysmal atrial fibrillation I48.0 and Coronary artery disease involving southern ute coronary artery of southern ute heart without angina pectoris I25.10 [place] [address] [address] Jun, [place] [address] [address] Jun, [place] [address] [address] May, [place] [address] [address] May, Type 2 diabetes mellitus with unspecifie d complications E11.8 ; retirement 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 ; Leg cramps R25.2 ; Essential hypertension I10 and Routine adult health maintenance Z00.00 [place] [address] [address] 07 Apr, 2018 [facility] [id number] [place] [address] Apr, [facility] [address] [address] Mar, Type 2 diabetes mellitus without complic ations E11.9 [facility] [address] [address] Mar, Type 2 diabetes mellitus without complic ations E11.9 [facility] [address] [address] Mar, Type 2 diabetes mellitus without complic ations E11.9 [facility] [address] [address] Feb, Essential (primary) hypertension I10 [place] [address] [address] Feb, [facility] [address] [address] Jan, Type 2 diabetes mellitus without complic ations E11.9 [facility] [address] [address] Dec, [facility] [address] [address] Dec, Type 2 diabetes mellitus with diabetic n europathy, unspecified E11.40 ; retirement 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 and Chronic kidney disease, unspecified CKD stage N18.9 [facility] [id number] [place] [address] Dec, Type 2 diabetes mellitus without complic ations E11.9 [place] [address] [address] Dec, [facility] [address] [address] Dec, Type 2 diabetes mellitus without complic ations E11.9 [facility] [id number] [place] [address] Dec, [facility] [id number] [place] [address] Oct, [facility] [id number] [place] [address] Sep, [facility] [id number] [place] [address] Aug, [facility] [address] [address] Aug, Exposure to hepatitis C Z20.5 and Routin e adult health maintenance Z00.00 [place] [address] [address] 11 Aug, 2017 Exposure to hepatitis C Z20.5 [place] [address] [address] 11 Aug, 2017 Medicare annual wellness visit, initial Z00.00 ; Coronary artery disease involving southern ute coronary artery of southern ute heart without angina pectoris I25.10 ; Hyperlipidemia, unspecified hyperlipidemia type E78.5 ; Essential hypertension I10 ; GERD (gastroesophageal reflux disease) K21.9 ; Routine adult health maintenance Z00.00 ; Encounter for immunization Z23 ; Type 2 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, unspecified E11.40 and retirement 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 [place] [id number] [place] [address] July, Type 2 diabetes mellitus without complic ations E11.9 and Type 2 diabetes mellitus without complications E11.9 [place] [id number] [place] [address] July, [place] [address] [address] July, [place] [address] [address] Mar, Type 2 diabetes mellitus without complic ations E11.9 [place] [address] [address] Mar, [facility] [address] [address] Feb, Type 2 diabetes mellitus without complic ations E11.9 [facility] [address] [address] Jan, Type 2 diabetes mellitus without complic ations E11.9 [facility] [address] [address] Jan, Type 2 diabetes mellitus without complic ations E11.9 [facility] [address] [address] Nov, [facility] [address] [address] Oct, Type 2 diabetes mellitus without complic ations E11.9 [place] [address] [address] Oct, Type 2 diabetes mellitus without complic ations E11.9 ; Essential hypertension I10 and Neck pain M54.2 [facility] [address] [address] Sep, [facility] [address] [address] Aug, Type 2 diabetes mellitus without complic ations E11.9 [facility] [address] [address] Jun, Type 2 diabetes mellitus without complic ations E11.9 ; Neck pain M54.2 and Essential hypertension I10 [facility] [address] [address] Jun, [facility] [address] [address] Jun, [facility] [address] [address] 10 Jun, 2016 GERD (gastroesophageal reflux disease) K 21.9 and Type 2 diabetes mellitus without complications E11.9 [place] [address] [address] Mar, Paresthesias in right hand R20.2 [facility] [address] [address] Feb, Type 2 diabetes mellitus without complic ations E11.9 [facility] [address] [id number] Feb, Encounter for dental examination Z01.20 [facility] [address] [address] Feb, Type 2 diabetes mellitus without complic ations E11.9 and Neck pain M54.2 [facility] [address] [address] Feb, Type 2 diabetes mellitus without complic ations E11.9 [facility] [address] [id number] Jan, Dental examination Z01.20 [facility] [address] [address] Jan, [facility] [address] [address] Jan, [facility] [address] [id number] Dec, Dental caries K02.9 [facility] [address] [address] Nov, [facility] [address] [address] Nov, [facility] [address] [address] Oct, Type 2 diabetes mellitus without complic ations E11.9 ; Neck pain M54.2 and Essential hypertension I10 [facility] [address] [address] Oct, [facility] [address] [id number] Oct, Dental examination Z01.20 [facility] [id number] [place] [address] Sep, [facility] [id number] [place] [address] Sep, [facility] [id number] [place] [address] Aug, Essential (primary) hypertension I10 [facility] [id number] [place] [address] Aug, [facility] [id number] [place] [address] Aug, [facility] [id number] [place] [address] July, Essential (primary) hypertension I10 [facility] [address] [address] July, Essential (primary) hypertension I10 and Type 2 diabetes mellitus without complications E11.9 [facility] [id number] [place] [address] July, [facility] [id number] [place] [address] Jun, GERD (gastroesophageal reflux disease) K 21.9 [facility] [id number] [place] [address] Jun, GERD (gastroesophageal reflux disease) K 21.9 [facility] [address] [id number] [place] [address] Jun, [facility] [id number] [place] [address] Jun, Neuropathy G62.9 [facility] [address] [id number] [place] [address] May, Essential (primary) hypertension I10 [facility] [address] [facility] [id number] [place] [address] May, Bronchitis J40 [facility] [address] [address] 15 May, 2015 Type 2 diabetes mellitus without complic ations E11.9 and Essential (primary) hypertension I10 [facility] [address] [address] 10 May, 2015 [facility] [address] [address] 10 May, 2015 GERD (gastroesophageal reflux disease) K 21.9 [facility] [address] [address] 25 Apr, 2015 Other and unspecified hyperlipidemia 272 .4 ; Unspecified essential hypertension 401.9 ; Type 2 diabetes mellitus without complications E11.9 ; Neck pain M54.2 and Paresthesias in right hand R20.2 [facility] [address] [address] 11 Apr, 2015 [facility] [address] [address] Apr, Neuropathy G62.9 [facility] [address] [address] Mar, [facility] [address] [address] Feb, [facility] [address] [address] Jan, [facility] [address] [address] Dec, [facility] [address] [address] 13 Dec, 2014 Type 2 diabetes mellitus without complic ations E11.9 ; Encounter for immunization Z23 and Neck pain M54.2 [facility] [address] [address] 09 Dec, 2014 [facility] [address] [address] 14 Nov, 2014 [facility] [id number] [place] [address] Nov, [facility] [id number] [place] [address] Oct, [facility] [id number] [place] [address] Oct, [facility] [address] [address] Sep, [facility] [id number] [place] [address] Sep, Coronary atherosclerosis of unspecified type of vessel, southern ute or graft 414.00 ; Diabetes mellitus without mention of complication, type II or unspecified type, not stated as uncontrolled 250.00 ; Hyperlipidemia 272.4 and HTN (hypertension) 401.9 [facility] [id number] [place] [address] Aug, [facility] [address] [address] July, [facility] [id number] [place] [address] Jun, [facility] [address] [address] Jun, [facility] [id number] [place] [address] May, [facility] [id number] [place] [address] May, [facility] [id number] [place] [address] May, [facility] [address] [address] May, [facility] [id number] [place] [address] Apr, [facility] [address] [address] Apr, [facility] [address] [facility] [id number] [place] [address] Apr, [facility] [address] [id number] [place] [address] Apr, [facility] [address] [id number] [place] [address] Apr, [facility] [address] [id number] [place] [address] Apr, [facility] [address] [facility] [id number] [place] [address] Apr, [facility] [address] [id number] [place] [address] Apr, [facility] [address] [id number] [place] [address] Mar, [facility] [address] [id number] [place] [address] Mar, [facility] [address] [id number] [place] [address] Mar, [facility] [address] [id number] [place] [address] Mar, [facility] [address] [id number] [place] [address] Mar, [facility] [address] [id number] [place] [address] Mar, [facility] [address] [id number] [place] [address] Mar, [facility] [address] [id number] [place] [address] Mar, [facility] [address] [id number] [place] [address] Feb, [facility] [address] [id number] [place] [address] Feb, [facility] [address] [id number] [place] [address] 16 Feb, 2014 [facility] [address] [id number] [place] [address] Feb, [facility] [address] [id number] [place] [address] Feb, [facility] [address] [id number] [place] [address] Feb, [facility] [address] [id number] [place] [address] Feb, [facility] [address] [id number] [place] [address] Feb, [facility] [address] [id number] [place] [address] Feb, [facility] [address] [id number] [place] [address] Feb, [facility] [address] [id number] [place] [address] Jan, [facility] [address] [id number] [place] [address] Jan, [facility] [address] [id number] [place] [address] Dec, [facility] [address] [id number] [place] [address] Dec, [facility] [address] [id number] [place] [address] Dec, [facility] [address] [id number] [place] [address] Dec, [facility] [address] [id number] [place] [address] 15 Nov, 2013 [facility] [address] [id number] [place] [address] Nov, [facility] [address] [id number] [place] [address] Nov, [facility] [address] [id number] [place] [address] Nov, [facility] [address] [id number] [place] [address] Oct, [facility] [address] [id number] [place] [address] Oct, [facility] [address] [id number] [place] [address] Oct, [facility] [address] [facility] [id number] [place] [address] Oct, [facility] [address] [id number] [place] [address] Oct, [facility] [address] [id number] [place] [address] Sep, [facility] [address] [id number] [place] [address] Sep, [facility] [address] [id number] [place] [address] Sep, 2013 [facility] [address] [id number] [place] [address] Sep, [facility] [address] [id number] [place] [address] Sep, 2013 [facility] [address] [id number] [place] [address] Sep, [facility] [address] [id number] [place] [address] Aug, [facility] [address] [id number] [place] [address] Aug, [facility] [address] [id number] [place] [address] Aug, [facility] [address] [id number] [place] [address] Aug, [facility] [address] [id number] [place] [address] Aug, [facility] [address] [facility] [id number] [facility] [place] [address] Aug, [facility] [address] [facility] [id number] [facility] [place] [address] July, [facility] [address] [facility] [id number] [facility] [place] [address] July, [facility] [address] [id number] [facility] [place] [address] Jun, [facility] [address] [facility] [id number] [facility] [place] [address] Jun, [facility] [address] [id number] [place] [address] May, [facility] [address] [id number] [place] [address] May, [facility] [address] [id number] [place] [address] May, [facility] [address] [id number] [place] [address] May, [facility] [address] [id number] [place] [address] Apr, [facility] [address] [id number] [place] [address] Apr, [facility] [address] [id number] [place] [address] Apr, [facility] [address] [id number] [place] [address] Apr, [facility] [address] [id number] [place] [address] Apr, [facility] [address] [id number] [place] [address] Apr, [facility] [address] [id number] [place] [address] Feb, [facility] [address] [id number] [place] [address] Feb, [facility] [address] [id number] [place] [address] Feb, [facility] [address] [id number] [place] [address] Feb, [facility] [address] [id number] [place] [address] Jan, [facility] [address] [id number] [place] [address] Jan, [facility] [address] [facility] [id number] [place] [address] Dec, [facility] [address] [id number] [place] [address] Dec, [facility] [address] [id number] [place] [address] Dec, [facility] [address] [id number] [place] [address] Dec, [facility] [address] [id number] [place] [address] Oct, [facility] [address] [id number] [place] [id number] Oct, [facility] [address] [id number] [place] [id number] Oct, [facility] [address] [id number] [place] [address] Oct, [facility] [address] [id number] [place] [address] Sep, [facility] [address] [id number] [place] [address] Sep, [facility] [address] [id number] [place] [address] Aug, [facility] [address] [id number] [place] [address] Aug, [facility] [address] [id number] [place] [address] Aug, [facility] [address] [id number] [place] [address] Aug, [facility] [address] [id number] [place] [address] July, [facility] [address] [id number] [place] [address] Jun, [facility] [address] [id number] [place] [address] May, [facility] [address] [id number] [place] [address] May, [facility] [address] [id number] [place] [address] May, [facility] [address] [id number] [place] [address] May, [facility] [address] [id number] [place] [address] May, [facility] [address] [id number] [place] [address] Apr, [facility] [address] [id number] [place] [address] Apr, [facility] [address] [id number] [place] [address] Apr, [facility] [address] [id number] [place] [address] Apr, [facility] [address] [id number] [place] [address] Mar, [facility] [address] [id number] [place] [address] Mar, [facility] [address] [id number] [place] [address] Mar, [facility] [address] [id number] [place] [address] Mar, [facility] [address] [id number] [place] [address] Jan, [facility] [address] [id number] [place] [address] Jan, [facility] [address] [id number] [place] [address] Jan, [facility] [address] [id number] [place] [address] Jan, [facility] [address] [id number] [place] [address] Jan, [facility] [address] [id number] [place] [address] Jan, [facility] [address] [id number] [place] [address] Jan, [facility] [address] [id number] [place] [address] Jan, [facility] [address] [id number] [place] [address] Jan, [facility] [id number] [place] [address] Jan, [facility] [id number] [place] [address] Dec, [facility] [address] [id number] [place] [address] Dec, [facility] [address] [id number] [place] [address] Dec, [facility] [address] [id number] [place] [address] 27 Nov, 2011 [facility] [address] [id number] [place] [address] 26 Nov, 2011 [facility] [address] [id number] [place] [address] 12 Nov, 2011 [facility] [address] [id number] [place] [address] Nov, [facility] [address] [facility] [id number] [place] [address] Oct, [facility] [address] [facility] [id number] [place] [address] Oct, IMMUNIZATIONS No Known Immunizations SOCIAL HISTORY Never Assessed REASON FOR VISIT PLAN OF CARE VITAL SIGNS Height 64 in 2013-05-26 Weight 211.4 lbs 2013-05-26 Temperature 98.3 degrees Fahrenheit 2013-05-26 Heart Rate 80 bpm 2013-05-26 Respiratory Rate 18 2013-05-26 Blood pressure systolic 142 mmHg 2013-05-26 Blood pressure diastolic 80 mmHg 2013-05-26 MEDICATIONS Unknown Medications RESULTS No Results PROCEDURES Procedure Date Ordered Result Body Site GLYCATED HEMOGLOBIN TEST May 26, 2013 INSTRUCTIONS MEDICATIONS ADMINISTERED No Known Medications [...] surgeries Hospitalization History [facility] 06/2018 Hospitalization History [facility]- 07/2018 [facility] - heart attack and [facility]hab -03/02/2019
--- OUTSIDE RECORDS SUMMARY | 2019-07-20 17:15 | XMS REPORT ---
Author Author Sarah AMADO Organization [facility] Address [address] [place] [address] Care Team Providers Care Data Management Engineer Name Role Phone GEE AMADO Unavailable PROBLEMS Type Condition ICD9-CM Code [id number] Code Onset Dates Condition S tatus SNOMED Code Problem Coronary artery disease invo lving makah coronary artery of makah heart without angina pectoris I25.10 Active 1641 [id number] Problem Hyperlipidemia, unspecified hyperlipidemia type E7 8.5 Active 37218900 Problem Paresthesias in right hand R20.2 Act chidi 566544925 Problem Neck pain M54.2 Active 81749139 Problem GERD (gastroesophageal reflux disease) K21.9 Active 875814318 Problem care home 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 Active 466583940 Problem Type 2 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, uns pecified E11.40 Active 71764193 Problem Chronic kidney disease, stage 3 (moderate) N18.3 Active 719373094 Problem Essential hypertension I10 Active 86941850 Problem Morbid (severe) obesity due to excess calories E66 .01 Active 647445366 Problem Type 2 diabetes mellitus without complications E11 .9 Active 914874596 Problem Chronic kidney disease, unspecified CKD stage N18. 9 Active 020657723 Problem Type 2 diabetes mellitus with unspecified complications E11.8 Active 50405421 Problem Paroxysmal atrial fibrillation I48.0 Active 386996092 Problem Obesity (BMI 30-39.9) E66.9 Active 410122370 ALLERGIES No Information ENCOUNTERS Encounter Location Date Diagnosis [facility] [address] [id number] [place] [address] May, [address] [place] [address] Mar, [address] [place] [address] Mar, [facility] [id number] [place] [address] Mar, [facility] [id number] [place] [address] Mar, [facility] [id number] [place] [address] Mar, [facility] [id number] [place] [address] Feb, [facility] [id number] [place] [address] Feb, 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 pectoris I25.10 ; Chronic kidney disease, stage 3 (moderate) N18.3 and Morbid (severe) obesity due to excess calories E66.01 [facility] [id number] [place] [address] Feb, [facility] [id number] [place] [address] Feb, [facility] [id number] [place] [address] Feb, [facility] [id number] [place] [address] Jan, [facility] [id number] [place] [address] Jan, [facility] [id number] [place] [address] Jan, [facility] [id number] [place] [address] Jan, [facility] [address] [address] Jan, [facility] [id number] [place] [address] Jan, [facility] [id number] [place] [address] Dec, [address] [place] [address] Dec, [facility] [address] [id number] [place] [address] Nov, [facility] [address] [id number] [place] [address] Nov, [facility] [address] [id number] [place] [address] Nov, [facility] [address] [id number] [place] [address] Nov, [address] [place] [address] Oct, [facility] [address] [id number] [place] [address] Oct, [facility] [address] [place] [address] Sep, [facility] [address] [id number] [place] [address] Sep, [facility] [address] [id number] [place] [address] Aug, Type 2 diabetes mellitus with unspecifie d complications E11.8 ; 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 and Obesity (BMI 30-39.9) E66.9 [facility] [address] [place] [address] Aug, Type 2 diabetes mellitus wit hout complications E11.9 [facility] [address] [place] [address] Aug, Type 2 diabetes mellitus wit hout complications E11.9 [facility] [address] [id number] [place] [address] Aug, [facility] [address] [place] [address] July, care home 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 ins ulin Z79.4 and Type 2 diabetes mellitus with unspecified complications E11.[address] [place] [address] July, Screening mammogram, encount er for Z12.31 [id number] [place] [address] July, [address] [address] July, Paroxysmal atrial fibrillation I48.0 and 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 pectoris I25.10 [address] [address] Jun, [address] [address] Jun, [address] [address] May, [address] [address] May, Type 2 diabetes mellitus with unspecifie d complications E11.8 ; care home 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 ; Leg cramps R25.2 ; Essential hypertension I10 and Routine adult health maintenance Z00.00 [address] [address] [id number] [place] [address] 07 Apr, 2018 [id number] [place] [address] Apr, [address] [address] [address] Mar, Type 2 diabetes mellitus without complic ations E11.9 [address] [address] [address] [address] Mar, Type 2 diabetes mellitus without complic ations E11.9 [address] [address] [address] Mar, Type 2 diabetes mellitus without complic ations E11.9 [address] [address] [address] [address] [place] [address] 14 Feb, 2018 Essential (primary) hypertension I10 [facility] [address] [address] Feb, [facility] [address] [address] Jan, Type 2 diabetes mellitus without complic ations E11.9 [facility] [address] [address] Dec, [facility] [address] [address] Dec, Type 2 diabetes mellitus with diabetic n europathy, unspecified E11.40 ; care home 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 and Chronic kidney disease, unspecified CKD stage N18.9 [address] [address] [address] 15 Dec, 2017 Type 2 diabetes mellitus without complic ations E11.9 [address] [address] [address] Dec, [facility] [address] [address] Dec, Type 2 diabetes mellitus without complic ations E11.9 [address] [address] [address] Dec, [address] [address] [address] Oct, [facility] [address] [address] Sep, [facility] [address] [address] Aug, [address] [address] [address] Aug, Exposure to hepatitis C Z20.5 and Routin e adult health maintenance Z00.00 [place] [address] [address] 11 Aug, 2017 Exposure to hepatitis C Z20.5 [place] [address] [address] 11 Aug, 2017 Medicare annual wellness visit, initial Z00.00 ; 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 pectoris I25.10 ; Hyperlipidemia, unspecified hyperlipidemia type E78.5 ; Essential hypertension I10 ; GERD (gastroesophageal reflux disease) K21.9 ; Routine adult health maintenance Z00.00 ; Encounter for immunization Z23 ; Type 2 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, unspecified E11.40 and care home 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 [address] [address] [address] 30 Jul, 2017 Type 2 diabetes mellitus without complic ations E11.9 and Type 2 diabetes mellitus without complications E11.9 [place] [address] [address] 08 Jul, 2017 [address] [address] [address] July, [address] [address] [address] Mar, Type 2 diabetes mellitus without complic ations E11.9 [address] [address] 08 Mar, 2017 [address] [address] [address] Feb, Type 2 diabetes mellitus without complic ations E11.9 [address] [address] [address] Jan, Type 2 diabetes mellitus without complic ations E11.9 [address] [address] [address] Jan, Type 2 diabetes mellitus without complic ations E11.9 [address] [place] [address] [address] Nov, [place] [address] [address] Oct, Type 2 diabetes mellitus without complic ations E11.9 [facility] [address] [address] Oct, Type 2 diabetes mellitus without complic ations E11.9 ; Essential hypertension I10 and Neck pain M54.2 [facility] [address] [address] Sep, [facility] [address] [address] Aug, Type 2 diabetes mellitus without complic ations E11.9 [address] [address] [address] Jun, Type 2 diabetes mellitus without complic ations E11.9 ; Neck pain M54.2 and Essential hypertension I10 [address] [address] [address] Jun, [facility] [address] [address] Jun, [facility] [address] [address] Jun, GERD (gastroesophageal reflux disease) K 21.9 and Type 2 diabetes mellitus without complications E11.9 [address] [address] [address] Mar, Paresthesias in right hand R20.2 [facility] [address] [address] Feb, Type 2 diabetes mellitus without complic ations E11.9 [facility] [address] [facility] [place] [address] Feb, Encounter for dental examination Z01.20 [facility] [id number] [place] [address] 09 Feb, 2016 Type 2 diabetes mellitus without complic ations E11.9 and Neck pain M54.2 [facility] [address] [address] Feb, Type 2 diabetes mellitus without complic ations E11.9 [facility] [address] [id number] Jan, Dental examination Z01.20 [facility] [address] [address] Jan, [facility] [address] [address] Jan, [facility] [address] [id number] Dec, Dental caries K02.9 [facility] [address] [address] Nov, [facility] [address] [address] Nov, [facility] [address] [address] Oct, Type 2 diabetes mellitus without complic ations E11.9 ; Neck pain M54.2 and Essential hypertension I10 [facility] [address] [address] Oct, [facility] [address] [id number] Oct, Dental examination Z01.20 [facility] [address] [address] Sep, [facility] [address] [address] Sep, [facility] [address] [address] Aug, Essential (primary) hypertension I10 [facility] [address] [address] Aug, [facility] [address] [address] Aug, [facility] [address] [place] [address] July, Essential (primary) hypertension I10 [facility] [address] [address] July, Essential (primary) hypertension I10 and Type 2 diabetes mellitus without complications E11.9 [facility] [address] [address] July, [facility] [address] [address] 14 Jun, 2015 GERD (gastroesophageal reflux disease) K 21.9 [facility] [address] [address] 11 Jun, 2015 GERD (gastroesophageal reflux disease) K 21.9 [facility] [address] [address] 08 Jun, 2015 [facility] [address] [address] Jun, Neuropathy G62.9 [facility] [address] [address] May, Essential (primary) hypertension I10 [facility] [address] [facility] [id number] [place] [address] 23 May, 2015 Bronchitis J40 [facility] [address] [id number] [place] [address] 15 May, 2015 Type 2 diabetes mellitus without complic ations E11.9 and Essential (primary) hypertension I10 [facility] [address] [address] May, [facility] [address] [address] May, GERD (gastroesophageal reflux disease) K 21.9 [facility] [address] [address] 25 Apr, 2015 Other and unspecified hyperlipidemia 272 .4 ; Unspecified essential hypertension 401.9 ; Type 2 diabetes mellitus without complications E11.9 ; Neck pain M54.2 and Paresthesias in right hand R20.2 [facility] [id number] [place] [address] Apr, [facility] [address] [address] Apr, Neuropathy G62.9 [facility] [address] [address] Mar, [facility] [address] [address] Feb, [facility] [address] [address] Jan, [facility] [address] [address] Dec, [facility] [address] [address] Dec, Type 2 diabetes mellitus without complic ations E11.9 ; Encounter for immunization Z23 and Neck pain M54.2 [facility] [address] [address] Dec, [facility] [address] [address] Nov, [facility] [address] [address] Nov, [facility] [address] [address] Oct, [facility] [address] [address] Oct, [facility] [address] [address] Sep, [facility] [address] [address] Sep, Coronary atherosclerosis of unspecified type of vessel, makah or graft 414.00 ; Diabetes mellitus without mention of complication, type II or unspecified type, not stated as uncontrolled 250.00 ; Hyperlipidemia 272.4 and HTN (hypertension) 401.9 [facility] [address] [id number] [place] [address] Aug, [facility] [address] [id number] [place] [address] July, [facility] [id number] [place] [address] Jun, [facility] [id number] [place] [address] Jun, [facility] [id number] [place] [address] May, [facility] [id number] [place] [address] May, [facility] [id number] [place] [address] May, [facility] [id number] [place] [address] May, [facility] [id number] [place] [address] Apr, [facility] [id number] [place] [address] Apr, [facility] [id number] [place] [address] Apr, [facility] [id number] [place] [address] Apr, [facility] [id number] [place] [address] Apr, [facility] [id number] [place] [address] Apr, [facility] [id number] [place] [address] Apr, [facility] [id number] [place] [address] Apr, [facility] [address] [id number] [place] [address] Mar, [facility] [address] [id number] [place] [address] Mar, [facility] [address] [id number] [place] [address] Mar, [facility] [address] [id number] [place] [address] Mar, [facility] [address] [id number] [place] [address] Mar, [facility] [address] [id number] [place] [address] Mar, [facility] [address] [id number] [place] [address] Mar, [facility] [address] [id number] [place] [address] Mar, [facility] [address] [id number] [place] [address] Feb, [facility] [address] [id number] [place] [address] Feb, [facility] [address] [id number] [place] [address] Feb, [facility] [address] [id number] [place] [address] Feb, [facility] [address] [id number] [place] [address] Feb, [facility] [address] [id number] [place] [address] Feb, [facility] [address] [id number] [place] [address] Feb, [facility] [address] [id number] [place] [address] Feb, [facility] [address] [id number] [place] [address] Feb, [facility] [address] [facility] [id number] [place] [address] Feb, [facility] [address] [id number] [place] [address] Jan, [facility] [address] [id number] [place] [address] Jan, [facility] [address] [id number] [place] [address] Dec, [facility] [address] [id number] [place] [address] Dec, [facility] [address] [id number] [place] [address] Dec, [facility] [address] [id number] [place] [address] Dec, [facility] [address] [id number] [place] [address] Nov, [facility] [address] [id number] [place] [address] Nov, [facility] [address] [id number] [place] [address] Nov, [facility] [address] [id number] [place] [address] Nov, [facility] [address] [id number] [place] [address] Oct, [facility] [address] [id number] [place] [address] Oct, [facility] [address] [id number] [place] [address] Oct, [facility] [address] [id number] [place] [address] Oct, [facility] [address] [id number] [place] [address] Oct, [facility] [address] [id number] [place] [address] Sep, 2013 [facility] [address] [id number] [place] [address] Sep, 2013 [facility] [address] [id number] [place] [address] Sep, 2013 [facility] [address] [id number] [place] [address] Sep, 2013 [facility] [address] [id number] [place] [address] Sep, 2013 [facility] [address] [id number] [place] [address] Sep, [facility] [address] [id number] [place] [address] Aug, [facility] [address] [id number] [place] [address] Aug, [facility] [address] [id number] [place] [address] Aug, [facility] [address] [id number] [place] [address] Aug, [facility] [address] [id number] [place] [address] Aug, [facility] [address] [id number] [place] [address] Aug, [facility] [address] [id number] [place] [address] July, [facility] [address] [id number] [place] [address] July, [facility] [address] [id number] [place] [address] Jun, [facility] [address] [id number] [place] [address] Jun, [facility] [address] [id number] [place] [address] May, [facility] [address] [facility] [id number] [place] [address] May, [facility] [address] [id number] [place] [address] May, [facility] [address] [id number] [place] [address] May, [facility] [address] [id number] [place] [address] Apr, [facility] [address] [facility] [id number] [place] [address] Apr, [facility] [address] [id number] [place] [address] Apr, [facility] [address] [id number] [place] [address] Apr, [facility] [address] [id number] [place] [address] Apr, [facility] [address] [id number] [place] [address] Apr, [facility] [address] [id number] [place] [address] Feb, [facility] [address] [id number] [place] [address] Feb, [facility] [address] [id number] [place] [address] Feb, [facility] [address] [id number] [place] [address] Feb, [facility] [address] [id number] [place] [address] Jan, [facility] [address] [id number] [place] [address] Jan, [facility] [address] [id number] [place] [address] Dec, [facility] [address] [id number] [place] [address] 14 Dec, 2012 [facility] [address] [id number] [place] [address] 14 Dec, 2012 [facility] [address] [id number] [place] [address] 14 Dec, 2012 [facility] [address] [id number] [place] [address] Oct, [facility] [address] [id number] [place] [id number] Oct, [facility] [address] [id number] [place] [id number] Oct, [facility] [id number] [place] [address] Oct, [facility] [id number] [place] [address] Sep, [facility] [id number] [place] [address] Sep, [facility] [address] [id number] [place] [address] Aug, [facility] [id number] [place] [address] Aug, [facility] [address] [id number] [place] [address] Aug, [facility] [id number] [place] [address] Aug, [facility] [address] [id number] [place] [address] July, [facility] [id number] [place] [address] 16 Jun, 2012 [facility] [address] [id number] [place] [address] May, [facility] [address] [id number] [place] [address] May, [facility] [address] [id number] [place] [address] May, [facility] [address] [id number] [place] [address] May, [facility] [address] [id number] [place] [address] May, [facility] [address] [id number] [place] [address] Apr, [facility] [address] [id number] [place] [address] Apr, [facility] [address] [id number] [place] [address] Apr, [facility] [address] [id number] [place] [address] Apr, [facility] [address] [id number] [place] [address] Mar, [facility] [address] [id number] [place] [address] Mar, [facility] [address] [id number] [place] [address] Mar, [facility] [address] [id number] [place] [address] Mar, [facility] [address] [id number] [place] [address] Jan, [facility] [address] [id number] [place] [address] 16 Jan, 2012 [facility] [address] [id number] [place] [address] 15 Jan, 2012 [facility] [address] [id number] [place] [address] 15 Jan, 2012 [facility] [address] [id number] [place] [address] 07 Jan, 2012 [facility] [facility] [address] [id number] [place] [id number] Jan, [facility] [address] [id number] [place] [address] Jan, [facility] [address] [id number] [place] [address] Jan, [facility] [address] [id number] [place] [address] Jan, [facility] [address] [address] Jan, [facility] [address] [address] Dec, [facility] [address] [address] Dec, [facility] [address] [address] Dec, [facility] [address] [address] Nov, [facility] [id number] [place] [address] Nov, [facility] [address] [address] Nov, [facility] [address] [address] Nov, [facility] [address] [address] Oct, [facility] [id number] [place] [address] Oct, IMMUNIZATIONS No Known Immunizations SOCIAL HISTORY [...] egd 01/2019 Hospitalization History surgeries Hospitalization History jeny 06/2018 Hospitalization History [facility]- 07/2018 [facility] - heart attack and rehab -03/02/2019
--- OUTSIDE RECORDS SUMMARY | 2019-07-20 17:15 | XMS REPORT ---
Author Author Sarah Ruby Doctor Organization [facility] Address Unknown Phone Unavailable Care Team Providers Care Tie Knitter Helper Name Role Phone Migration, Doctor Unavailable Unavailable PROBLEMS Type Condition ICD9-CM Code ACA16-TK Code Onset Dates Condition S tatus SNOMED Code Problem Coronary artery disease invo lving [place] coronary artery of [place] heart without angina pectoris I25.10 Active 1641 993077182 Problem Hyperlipidemia, unspecified hyperlipidemia type E7 8.5 Active 09881871 Problem Paresthesias in right hand R20.2 Act chidi 117325910 Problem Neck pain M54.2 Active 06481668 Problem GERD (gastroesophageal reflux disease) K21.9 Active 325396428 Problem 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 9 Active 193692390 Problem Type 2 diabetes mellitus with unspecified complications E11.8 Active 68882117 Problem Paroxysmal atrial fibrillation I48.0 Active 849751744 Problem Obesity (BMI 30-39.9) E66.9 Active 739049729 ALLERGIES No Information ENCOUNTERS Encounter Location Date Diagnosis [facility] [address] [id number] [place] [address] May, [facility] [id number] [place] [address] Mar, [facility] [id number] [place] [address] Mar, [facility] [address] [id number] [place] [address] Mar, [facility] [address] [place] [address] Mar, [facility] [place] [address] Mar, [facility] [address] [facility] [id number] [place] [address] Mar, [facility] [id number] [place] [address] Mar, [facility] [id number] [place] [address] Mar, [facility] [id number] [place] [address] Feb, [facility] [id number] [place] [address] Feb, Coronary artery disease involving [place] coronary artery of [place] heart without angina pectoris I25.10 ; Chronic kidney disease, stage 3 (moderate) N18.3 and Morbid (severe) obesity due to excess calories E66.01 [facility] [id number] [place] [address] Feb, [facility] [id number] [place] [address] Feb, [facility] [id number] [place] [address] Feb, [facility] [id number] [place] [address] Jan, [facility] [id number] [place] [address] Jan, [facility] [id number] [place] [address] Jan, [facility] [id number] [place] [address] Jan, [facility] [id number] [place] [address] Jan, [facility] [address] [facility] [id number] [place] [address] Jan, [facility] [address] [id number] [place] [address] Dec, [facility] [place] [address] [place] [address] Dec, [facility] [address] [facility] [id number] [place] [address] Nov, [facility] [id number] [place] [address] Nov, [facility] [id number] [place] [address] Nov, [facility] [address] [facility] [id number] [place] [address] Nov, [facility] [place] [address] [place] [address] Oct, [facility] [address] [facility] [id number] [place] [address] Oct, [facility] [place] [address] [place] [address] Sep, [facility] [address] [facility] [id number] [place] [address] Sep, [facility] [id number] [place] [address] Aug, Type 2 diabetes mellitus with unspecifie d complications E11.8 ; longterm 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 and Obesity (BMI 30-39.9) E66.9 [facility] [place] [address] [place] [address] Aug, Type 2 diabetes mellitus wit hout complications E11.9 [facility] [place] [address] [place] [address] Aug, Type 2 diabetes mellitus wit hout complications E11.9 [facility] [address] [id number] [place] [address] Aug, [facility] [place] [facility] [address] 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 [address] [place] [address] July, Screening mammogram, encount er for Z12.31 [place] [address] [address] July, [place] [address] [address] July, Paroxysmal atrial fibrillation I48.0 and Coronary artery disease involving [place] coronary artery of [place] heart without angina pectoris I25.10 [place] [address] [address] Jun, [place] [address] [address] Jun, [place] [address] [address] May, [place] [address] [address] May, Type 2 diabetes mellitus with unspecifie d complications E11.8 ; longterm 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 ; Leg cramps R25.2 ; Essential hypertension I10 and Routine adult health maintenance Z00.00 [place] [address] [address] Apr, [place] [address] [address] Apr, [place] [address] [address] Mar, Type 2 diabetes mellitus without complic ations E11.9 [place] [address] [address] Mar, Type 2 diabetes mellitus without complic ations E11.9 [facility] [address] [address] Mar, Type 2 diabetes mellitus without complic ations E11.9 [facility] [address] [address] Feb, Essential (primary) hypertension I10 [facility] [address] [address] Feb, [facility] [address] [address] Jan, Type 2 diabetes mellitus without complic ations E11.9 [facility] [address] [address] Dec, [facility] [address] [address] Dec, Type 2 diabetes mellitus with diabetic n europathy, unspecified E11.40 ; longterm 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 and Chronic kidney disease, unspecified CKD stage N18.9 [facility] [address] [address] Dec, Type 2 diabetes mellitus without complic ations E11.9 [facility] [address] [address] Dec, [facility] [address] [address] Dec, Type 2 diabetes mellitus without complic ations E11.9 [facility] [address] [address] Dec, [facility] [address] [address] Oct, [facility] [address] [address] Sep, [facility] [address] [address] Aug, [facility] [id number] [place] [address] 11 Aug, 2017 Exposure to hepatitis C Z20.5 and Routin e adult health maintenance Z00.00 [place] [id number] [place] [address] 11 Aug, 2017 Medicare annual wellness visit, initial Z00.00 ; Coronary artery disease involving [place] coronary artery of [place] heart without angina pectoris I25.10 ; Hyperlipidemia, unspecified hyperlipidemia type E78.5 ; Essential hypertension I10 ; GERD (gastroesophageal reflux disease) K21.9 ; Routine adult health maintenance Z00.00 ; Encounter for immunization Z23 ; Type 2 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, unspecified E11.40 and longterm 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 [place] [address] [address] 11 Aug, 2017 Exposure to hepatitis C Z20.5 [place] [address] [address] 30 Jul, 2017 Type 2 diabetes mellitus without complic ations E11.9 and Type 2 diabetes mellitus without complications E11.9 [place] [id number] [place] [address] 08 Jul, 2017 [place] [address] [address] July, [place] [address] [address] Mar, Type 2 diabetes mellitus without complic ations E11.9 [place] [id number] [place] [address] Mar, [place] [address] [address] Feb, Type 2 diabetes mellitus without complic ations E11.9 [place] [address] [address] Jan, Type 2 diabetes mellitus without complic ations E11.9 [place] [address] [address] Jan, Type 2 diabetes mellitus without complic ations E11.9 [facility] [address] [address] Nov, [facility] [address] [address] Oct, Type 2 diabetes mellitus without complic ations E11.9 [facility] [address] [address] Oct, Type 2 diabetes mellitus without complic ations E11.9 ; Essential hypertension I10 and Neck pain M54.2 [facility] [address] [address] Sep, [facility] [address] [address] Aug, Type 2 diabetes mellitus without complic ations E11.9 [facility] [address] [address] Jun, Type 2 diabetes mellitus without complic ations E11.9 ; Neck pain M54.2 and Essential hypertension I10 [facility] [address] [address] Jun, [facility] [address] [address] Jun, [facility] [address] [address] Jun, GERD (gastroesophageal reflux disease) K 21.9 and Type 2 diabetes mellitus without complications E11.9 [facility] [address] [address] Mar, Paresthesias in right hand R20.2 [facility] [address] [address] Feb, Type 2 diabetes mellitus without complic ations E11.9 [facility] [address] [id number] [place] [address] Feb, Encounter for dental examination Z01.20 [place] [id number] [place] [address] Feb, Type 2 diabetes mellitus without complic ations E11.9 and Neck pain M54.2 [facility] [address] [address] Feb, Type 2 diabetes mellitus without complic ations E11.9 [facility] [address] [id number] Jan, Dental examination Z01.20 [facility] [address] [address] Jan, [facility] [address] [address] Jan, [facility] [address] [id number] Dec, Dental caries K02.9 [facility] [address] [address] Nov, [facility] [address] [address] Nov, [facility] [address] [address] Oct, Type 2 diabetes mellitus without complic ations E11.9 ; Neck pain M54.2 and Essential hypertension I10 [facility] [address] [address] Oct, [facility] [address] [id number] Oct, Dental examination Z01.20 [facility] [address] [address] Sep, [facility] [address] [address] Sep, [facility] [address] [address] Aug, Essential (primary) hypertension I10 [facility] [id number] [place] [address] Aug, [facility] [address] [id number] [place] [address] Aug, [facility] [id number] [place] [address] July, Essential (primary) hypertension I10 [facility] [address] [address] July, Essential (primary) hypertension I10 and Type 2 diabetes mellitus without complications E11.9 [facility] [id number] [place] [address] July, [facility] [address] [address] Jun, GERD (gastroesophageal reflux disease) K 21.9 [facility] [id number] [place] [address] Jun, GERD (gastroesophageal reflux disease) K 21.9 [facility] [id number] [place] [address] Jun, [facility] [id number] [place] [address] Jun, Neuropathy G62.9 [facility] [id number] [place] [address] May, Essential (primary) hypertension I10 [facility] [address] [facility] [id number] [place] [address] May, Bronchitis J40 [facility] [address] [facility] [id number] [place] [address] 15 May, 2015 Type 2 diabetes mellitus without complic ations E11.9 and Essential (primary) hypertension I10 [facility] [address] [id number] [place] [address] 10 May, 2015 [facility] [id number] [place] [address] May, GERD (gastroesophageal reflux disease) K 21.9 [facility] [address] [address] 25 Apr, 2015 Other and unspecified hyperlipidemia 272 .4 ; Unspecified essential hypertension 401.9 ; Type 2 diabetes mellitus without complications E11.9 ; Neck pain M54.2 and Paresthesias in right hand R20.2 [facility] [address] [address] Apr, [facility] [address] [address] Apr, Neuropathy G62.9 [facility] [address] [address] Mar, [facility] [address] [address] Feb, [facility] [address] [address] Jan, [facility] [address] [address] Dec, [facility] [address] [address] Dec, Type 2 diabetes mellitus without complic ations E11.9 ; Encounter for immunization Z23 and Neck pain M54.2 [facility] [address] [address] Dec, [facility] [address] [address] Nov, [facility] [address] [address] Nov, [facility] [address] [address] Oct, [facility] [address] [address] Oct, [facility] [address] [address] Sep, [facility] [id number] [place] [address] Sep, Coronary atherosclerosis of unspecified type of vessel, [place] or graft 414.00 ; Diabetes mellitus without mention of complication, type II or unspecified type, not stated as uncontrolled 250.00 ; Hyperlipidemia 272.4 and HTN (hypertension) 401.9 [facility] [id number] [place] [address] Aug, [facility] [address] [address] July, [facility] [id number] [place] [address] Jun, [facility] [address] [address] Jun, [facility] [id number] [place] [address] May, [facility] [address] [address] May, [facility] [id number] [place] [address] May, [facility] [address] [address] May, [facility] [id number] [place] [address] Apr, [facility] [id number] [place] [address] Apr, [facility] [id number] [place] [address] Apr, [facility] [address] [address] Apr, [facility] [id number] [place] [address] Apr, [facility] [id number] [place] [address] Apr, [facility] [address] [facility] [id number] [place] [address] Apr, [facility] [address] [id number] [place] [address] Apr, [facility] [address] [id number] [place] [address] Mar, [facility] [address] [id number] [place] [address] Mar, [facility] [address] [id number] [place] [address] Mar, [facility] [address] [id number] [place] [address] Mar, [facility] [address] [id number] [place] [address] Mar, [facility] [address] [id number] [place] [address] Mar, [facility] [address] [facility] [id number] [place] [address] Mar, [facility] [address] [facility] [id number] [place] [address] Mar, [facility] [address] [facility] [id number] [place] [address] Feb, [facility] [address] [facility] [id number] [place] [address] Feb, [facility] [address] [id number] [place] [address] Feb, [facility] [address] [facility] [id number] [place] [address] Feb, [facility] [address] [id number] [place] [address] Feb, [facility] [address] [id number] [place] [address] Feb, [facility] [address] [id number] [place] [address] Feb, [facility] [address] [id number] [place] [address] Feb, [facility] [address] [id number] [place] [address] Feb, [facility] [address] [id number] [place] [address] Feb, [facility] [address] [id number] [place] [address] Jan, [facility] [address] [id number] [place] [address] Jan, [facility] [address] [id number] [place] [address] Dec, [facility] [address] [id number] [place] [address] Dec, [facility] [address] [id number] [place] [address] Dec, [facility] [address] [id number] [place] [address] Dec, [facility] [address] [id number] [place] [address] Nov, [facility] [address] [id number] [place] [address] Nov, [facility] [address] [id number] [place] [address] Nov, [facility] [address] [id number] [place] [address] Nov, [facility] [id number] [place] [address] Oct, [facility] [address] [id number] [place] [address] Oct, [facility] [address] [id number] [place] [address] Oct, [facility] [address] [facility] [id number] [place] [address] Oct, [facility] [address] [id number] [place] [address] Oct, [facility] [address] [id number] [place] [address] Sep, 2013 [facility] [address] [id number] [place] [address] Sep, [facility] [address] [id number] [place] [address] Sep, [facility] [address] [id number] [place] [address] Sep, [facility] [address] [id number] [place] [address] Sep, [facility] [address] [id number] [place] [address] Sep, [facility] [address] [id number] [place] [address] Aug, [facility] [address] [id number] [place] [address] Aug, [facility] [address] [id number] [place] [address] Aug, [facility] [address] [id number] [place] [address] Aug, [facility] [address] [id number] [place] [address] Aug, [facility] [address] [id number] [place] [address] Aug, [facility] [address] [id number] [place] [address] July, [facility] [address] [id number] [place] [address] July, [facility] [address] [id number] [place] [address] Jun, 2013 [facility] [address] [id number] [place] [address] Jun, [facility] [address] [id number] [place] [address] May, [facility] [address] [id number] [place] [address] May, [facility] [address] [id number] [place] [address] May, [facility] [address] [id number] [place] [address] May, [facility] [address] [id number] [place] [address] Apr, [facility] [address] [id number] [place] [address] Apr, [facility] [address] [id number] [place] [address] Apr, [facility] [address] [id number] [place] [address] Apr, [facility] [address] [id number] [place] [address] Apr, [facility] [address] [id number] [place] [address] Apr, [facility] [address] [id number] [place] [address] Feb, [facility] [address] [id number] [place] [address] Feb, [facility] [address] [id number] [place] [address] Feb, [facility] [address] [id number] [place] [address] Feb, [facility] [address] [id number] [place] [address] Jan, [facility] [address] [id number] [place] [address] Jan, [facility] [address] [id number] [place] [address] Dec, [facility] [address] [id number] [place] [address] Dec, [facility] [address] [id number] [place] [address] Dec, [facility] [address] [id number] [place] [address] Dec, [facility] [address] [id number] [place] [address] Oct, [facility] [id number] [place] [id number] Oct, [facility] [address] [id number] [place] [id number] Oct, [facility] [address] [id number] [place] [address] Oct, [facility] [address] [id number] [place] [address] Sep, [facility] [address] [id number] [place] [address] Sep, [facility] [address] [id number] [place] [address] Aug, [facility] [address] [id number] [place] [address] Aug, [facility] [address] [id number] [place] [address] Aug, [facility] [id number] [place] [address] Aug, [facility] [address] [id number] [place] [address] July, [facility] [address] [id number] [place] [address] Jun, [facility] [address] [id number] [place] [address] May, [facility] [address] [id number] [place] [address] 05 May, 2012 [facility] [address] [id number] [place] [address] May, [facility] [address] [id number] [place] [address] 05 May, 2012 [facility] [address] [id number] [place] [address] May, [facility] [address] [id number] [place] [address] Apr, [facility] [address] [id number] [place] [address] Apr, [facility] [address] [id number] [place] [address] Apr, [facility] [address] [id number] [place] [address] Apr, [facility] [facility] [id number] [place] [address] Mar[facility] [id number] [place] [address] Mar, [facility] [id number] [place] [address] Mar, [facility] [id number] [place] [address] Mar, [facility] [id number] [place] [address] Jan, [facility] [id number] [place] [address] 16 Jan, 2012 [facility] [id number] [place] [address] 15 Jan, 2012 [facility] [id number] [place] [address] Jan, [facility] [id number] [place] [address] Jan, [facility] [id number] [place] [address] Jan, [facility] [id number] [place] [address] Jan, [facility] [id number] [place] [address] Jan, [facility] [id number] [place] [address] Jan, [facility] [id number] [place] [address] Jan, [facility] [id number] [place] [address] Dec, [facility] [id number] [place] [address] Dec, [facility] [id number] [place] [address] Dec, [facility] [id number] [place] [address] Nov, [facility] [id number] [place] [address] Nov, [facility] [id number] [place] [address] Nov, [facility] [id number] [place] [address] Nov, [facility] [id number] [place] [address] Oct, [facility] [id number] [place] [address] Oct, IMMUNIZATIONS No Known Immunizations SOCIAL HISTORY Never Assessed REASON FOR VISIT PLAN OF CARE VITAL SIGNS Height 64 in 2013-09-08 Weight 188.56 lbs 2013-09-08 Temperature 97.5 degrees Fahrenheit 2013-09-08 Heart Rate 80 bpm 2013-09-08 Respiratory Rate 20 2013-09-08 Blood pressure systolic 130 mmHg 2013-09-08 Blood pressure diastolic 70 mmHg 2013-09-08 MEDICATIONS Unknown Medications RESULTS No Results PROCEDURES [...] surgeries Hospitalization History [facility] 06/2018 Hospitalization History [facility] 07/2018 [facility] - heart attack and rehab -03/02/2019
--- OUTSIDE RECORDS SUMMARY | 2019-07-20 17:15 | XMS REPORT ---
Author Author Sarah Ruby Doctor Organization [facility] Address Unknown Phone Unavailable Care Team Providers Care Manager Architecture Name Role Phone Migration, Doctor Unavailable Unavailable PROBLEMS Type Condition ICD9-CM Code LID52-DZ Code Onset Dates Condition S tatus SNOMED Code Problem Coronary artery disease invo lving standing rock coronary artery of standing rock heart without angina pectoris I25.10 Active 1641 290798381 Problem Hyperlipidemia, unspecified hyperlipidemia type E7 8.5 Active 80130363 Problem Paresthesias in right hand R20.2 Act chidi 877253541 Problem Neck pain M54.2 Active 47026311 Problem GERD (gastroesophageal reflux disease) K21.9 Active 663065543 Problem 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 9 Active 883789980 Problem Type 2 diabetes mellitus with unspecified complications E11.8 Active 30994835 Problem Paroxysmal atrial fibrillation I48.0 Active 510204321 Problem Obesity (BMI 30-39.9) E66.9 Active 491113595 ALLERGIES No Information ENCOUNTERS Encounter Location Date Diagnosis [facility] [address] [id number] [place] [address] May, [facility] [id number] [place] [address] Mar, [facility] [id number] [place] [address] Mar, [facility] [address] [id number] [place] [address] Mar, [facility] [address] [place] [address] Mar, [facility] [place] [address] Mar, [facility] [address] [id number] [place] [address] Mar, [facility] [id number] [place] [address] Mar, [facility] [id number] [place] [address] Mar, [facility] [id number] [place] [address] Feb, [facility] [id number] [place] [address] Feb, Coronary artery disease involving standing rock coronary artery of standing rock heart without angina pectoris I25.10 ; Chronic kidney disease, stage 3 (moderate) N18.3 and Morbid (severe) obesity due to excess calories E66.01 [facility] [id number] [place] [address] Feb, [facility] [id number] [place] [address] Feb, [facility] [id number] [place] [address] Feb, [facility] [id number] [place] [address] Jan, [facility] [id number] [place] [address] Jan, [facility] [id number] [place] [address] Jan, [facility] [id number] [place] [address] Jan, [facility] [id number] [place] [address] Jan, [facility] [address] [id number] [place] [address] Jan, [facility] [address] [id number] [place] [address] Dec, [facility] [place] [address] [place] [address] Dec, [facility] [address] [id number] [place] [address] Nov, [facility] [address] [id number] [place] [address] Nov, [facility] [id number] [place] [address] Nov, [facility] [address] [id number] [place] [address] Nov, [facility] [place] [address] [place] [address] Oct, [facility] [address] [id number] [place] [address] Oct, [facility] [place] [address] [place] [address] Sep, [facility] [address] [id number] [place] [address] Sep, [facility] [address] [id number] [place] [address] Aug, Type 2 diabetes mellitus with unspecifie d complications E11.8 ; jail 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 and Obesity (BMI 30-39.9) E66.9 [facility] [place] [address] [place] [address] Aug, Type 2 diabetes mellitus wit hout complications E11.9 [facility] [place] [address] [place] [address] Aug, Type 2 diabetes mellitus wit hout complications E11.9 [facility] [address] [id number] [place] [address] Aug, [facility] [place] [facility] [address] [facility] [address] [place] [address] July, rat 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 ins ulin Z79.4 and Type 2 diabetes mellitus with unspecified complications E11.8 [facility] [place] [facility] [address] [facility] [address] [place] [address] July, Screening mammogram, encount er for Z12.31 [place] [address] [address] July, [place] [address] [address] July, Paroxysmal atrial fibrillation I48.0 and Coronary artery disease involving standing rock coronary artery of standing rock heart without angina pectoris I25.10 [place] [address] [address] Jun, [place] [address] [address] Jun, [place] [address] [address] May, [place] [address] [address] May, Type 2 diabetes mellitus with unspecifie d complications E11.8 ; jail 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 ; Leg cramps R25.2 ; Essential hypertension I10 and Routine adult health maintenance Z00.00 [place] [address] [address] Apr, [place] [address] [address] Apr, [place] [address] [address] Mar, Type 2 diabetes mellitus without complic ations E11.9 [place] [address] [address] Mar, Type 2 diabetes mellitus without complic ations E11.9 [facility] [address] [address] Mar, Type 2 diabetes mellitus without complic ations E11.9 [facility] [address] [address] Feb, Essential (primary) hypertension I10 [facility] [address] [address] Feb, [facility] [address] [address] Jan, Type 2 diabetes mellitus without complic ations E11.9 [facility] [address] [address] Dec, [facility] [address] [address] Dec, Type 2 diabetes mellitus with diabetic n europathy, unspecified E11.40 ; jail 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 and Chronic kidney disease, unspecified CKD stage N18.9 [facility] [address] [address] Dec, Type 2 diabetes mellitus without complic ations E11.9 [facility] [address] [address] Dec, [facility] [address] [address] Dec, Type 2 diabetes mellitus without complic ations E11.9 [facility] [address] [address] Dec, [facility] [address] [address] Oct, [facility] [address] [address] Sep, [facility] [address] [address] Aug, [place] [id number] [place] [address] 11 Aug, 2017 Exposure to hepatitis C Z20.5 and Routin e adult health maintenance Z00.00 [place] [id number] [place] [address] 11 Aug, 2017 Exposure to hepatitis C Z20.5 [place] [id number] [place] [address] 11 Aug, 2017 Medicare annual wellness visit, initial Z00.00 ; Coronary artery disease involving standing rock coronary artery of standing rock heart without angina pectoris I25.10 ; Hyperlipidemia, unspecified hyperlipidemia type E78.5 ; Essential hypertension I10 ; GERD (gastroesophageal reflux disease) K21.9 ; Routine adult health maintenance Z00.00 ; Encounter for immunization Z23 ; Type 2 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, unspecified E11.40 and 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 [place] [address] [address] 30 Jul, 2017 Type 2 diabetes mellitus without complic ations E11.9 and Type 2 diabetes mellitus without complications E11.9 [place] [id number] [place] [address] 08 Jul, 2017 [place] [address] [address] July, [place] [address] [address] Mar, Type 2 diabetes mellitus without complic ations E11.9 [place] [id number] [place] [address] 08 Mar, 2017 [place] [address] [address] Feb, Type 2 diabetes mellitus without complic ations E11.9 [place] [address] [address] 16 Jan, 2017 Type 2 diabetes mellitus without complic ations E11.9 [place] [address] [address] Jan, Type 2 diabetes mellitus without complic ations E11.9 [facility] [address] [address] Nov, [facility] [address] [address] Oct, Type 2 diabetes mellitus without complic ations E11.9 [facility] [address] [address] Oct, Type 2 diabetes mellitus without complic ations E11.9 ; Essential hypertension I10 and Neck pain M54.2 [facility] [address] [address] Sep, [facility] [address] [address] Aug, Type 2 diabetes mellitus without complic ations E11.9 [facility] [address] [address] Jun, Type 2 diabetes mellitus without complic ations E11.9 ; Neck pain M54.2 and Essential hypertension I10 [facility] [address] [address] Jun, [facility] [address] [address] Jun, [facility] [address] [address] Jun, GERD (gastroesophageal reflux disease) K 21.9 and Type 2 diabetes mellitus without complications E11.9 [facility] [address] [address] Mar, Paresthesias in right hand R20.2 [facility] [address] [address] Feb, Type 2 diabetes mellitus without complic ations E11.9 [facility] [address] [id number] [place] [id number] Feb, Encounter for dental examination Z01.20 [place] [id number] [place] [address] Feb, Type 2 diabetes mellitus without complic ations E11.9 and Neck pain M54.2 [facility] [address] [address] Feb, Type 2 diabetes mellitus without complic ations E11.9 [facility] [address] [id number] Jan, Dental examination Z01.20 [facility] [address] [address] Jan, [facility] [address] [address] Jan, [facility] [address] [id number] Dec, Dental caries K02.9 [facility] [address] [address] Nov, [facility] [address] [address] Nov, [facility] [address] [address] Oct, Type 2 diabetes mellitus without complic ations E11.9 ; Neck pain M54.2 and Essential hypertension I10 [facility] [address] [address] Oct, [facility] [address] [id number] Oct, Dental examination Z01.20 [facility] [address] [address] Sep, [facility] [address] [address] Sep, [facility] [address] [address] Aug, Essential (primary) hypertension I10 [facility] [id number] [place] [address] Aug, [facility] [address] [id number] [place] [address] Aug, [facility] [address] [id number] [place] [address] July, Essential (primary) hypertension I10 [facility] [address] [address] July, Essential (primary) hypertension I10 and Type 2 diabetes mellitus without complications E11.9 [facility] [id number] [place] [address] July, [facility] [address] [address] Jun, GERD (gastroesophageal reflux disease) K 21.9 [facility] [id number] [place] [address] Jun, GERD (gastroesophageal reflux disease) K 21.9 [facility] [address] [id number] [place] [address] Jun, [facility] [id number] [place] [address] Jun, Neuropathy G62.9 [facility] [address] [id number] [place] [address] May, Essential (primary) hypertension I10 [facility] [address] [facility] [id number] [place] [address] May, Bronchitis J40 [facility] [address] [facility] [id number] [place] [address] 15 May, 2015 Type 2 diabetes mellitus without complic ations E11.9 and Essential (primary) hypertension I10 [facility] [address] [id number] [place] [address] 10 May, 2015 [facility] [address] [id number] [place] [address] May, GERD (gastroesophageal reflux disease) K 21.9 [facility] [address] [address] 25 Apr, 2015 Other and unspecified hyperlipidemia 272 .4 ; Unspecified essential hypertension 401.9 ; Type 2 diabetes mellitus without complications E11.9 ; Neck pain M54.2 and Paresthesias in right hand R20.2 [facility] [address] [address] Apr, [facility] [address] [address] Apr, Neuropathy G62.9 [facility] [address] [address] Mar, [facility] [address] [address] Feb, [facility] [address] [address] Jan, [facility] [address] [address] Dec, [facility] [address] [address] Dec, Type 2 diabetes mellitus without complic ations E11.9 ; Encounter for immunization Z23 and Neck pain M54.2 [facility] [address] [address] Dec, [facility] [address] [address] Nov, [facility] [address] [address] Nov, [facility] [address] [address] Oct, [facility] [address] [address] Oct, [facility] [address] [address] Sep, [facility] [id number] [place] [address] Sep, Coronary atherosclerosis of unspecified type of vessel, standing rock or graft 414.00 ; Diabetes mellitus without mention of complication, type II or unspecified type, not stated as uncontrolled 250.00 ; Hyperlipidemia 272.4 and HTN (hypertension) 401.9 [facility] [id number] [place] [address] Aug, [facility] [address] [address] July, [facility] [id number] [place] [address] Jun, [facility] [address] [address] Jun, [facility] [id number] [place] [address] May, [facility] [address] [address] May, [facility] [id number] [place] [address] May, [facility] [address] [address] May, [facility] [id number] [place] [address] Apr, [facility] [id number] [place] [address] Apr, [facility] [id number] [place] [address] Apr, [facility] [address] [address] Apr, [facility] [id number] [place] [address] Apr, [facility] [id number] [place] [address] Apr, [facility] [address] [facility] [id number] [place] [address] Apr, [facility] [address] [id number] [place] [address] Apr, [facility] [address] [id number] [place] [address] Mar, [facility] [address] [id number] [place] [address] Mar, [facility] [address] [id number] [place] [address] Mar, [facility] [address] [id number] [place] [address] Mar, [facility] [address] [id number] [place] [address] Mar, [facility] [address] [id number] [place] [address] Mar, [facility] [address] [id number] [place] [address] Mar, [facility] [address] [id number] [place] [address] Mar, [facility] [address] [id number] [place] [address] Feb, [facility] [address] [id number] [place] [address] Feb, [facility] [address] [id number] [place] [address] Feb, [facility] [address] [id number] [place] [address] Feb, [facility] [address] [id number] [place] [address] Feb, [facility] [address] [id number] [place] [address] Feb, [facility] [address] [id number] [place] [address] Feb, [facility] [address] [id number] [place] [address] Feb, [facility] [address] [id number] [place] [address] Feb, [facility] [address] [id number] [place] [address] Feb, [facility] [address] [id number] [place] [address] Jan, [facility] [address] [id number] [place] [address] Jan, [facility] [address] [id number] [place] [address] Dec, [facility] [address] [id number] [place] [address] Dec, [facility] [address] [id number] [place] [address] Dec, [facility] [address] [id number] [place] [address] Dec, [facility] [address] [id number] [place] [address] Nov, [facility] [address] [id number] [place] [address] Nov, [facility] [address] [id number] [place] [address] Nov, [facility] [address] [id number] [place] [address] Nov, [facility] [address] [id number] [place] [address] Oct, [facility] [address] [id number] [place] [address] Oct, [facility] [address] [id number] [place] [address] Oct, [facility] [address] [facility] [id number] [place] [address] Oct, [facility] [address] [id number] [place] [address] Oct, [facility] [address] [id number] [place] [address] Sep, 2013 [facility] [address] [id number] [place] [address] Sep, [facility] [address] [id number] [place] [address] Sep, [facility] [address] [id number] [place] [address] Sep, [facility] [address] [id number] [place] [address] Sep, [facility] [address] [id number] [place] [address] Sep, [facility] [address] [id number] [place] [address] Aug, [facility] [address] [id number] [place] [address] Aug, [facility] [address] [id number] [place] [address] Aug, [facility] [address] [id number] [place] [address] Aug, [facility] [address] [id number] [place] [address] Aug, [facility] [address] [id number] [place] [address] Aug, [facility] [address] [id number] [place] [address] July, [facility] [address] [id number] [place] [address] July, [facility] [address] [id number] [place] [address] Jun, 2013 [facility] [address] [id number] [place] [address] Jun, [facility] [address] [id number] [place] [address] May, [facility] [address] [id number] [place] [address] May, [facility] [address] [id number] [place] [address] May, [facility] [address] [id number] [place] [address] May, [facility] [address] [id number] [place] [address] Apr, [facility] [address] [id number] [place] [address] Apr, [facility] [address] [id number] [place] [address] Apr, [facility] [address] [id number] [place] [address] Apr, [facility] [address] [id number] [place] [address] Apr, [facility] [address] [id number] [place] [address] Apr, [facility] [address] [id number] [place] [address] Feb, [facility] [address] [id number] [place] [address] Feb, [facility] [address] [id number] [place] [address] Feb, [facility] [address] [id number] [place] [address] Feb, [facility] [address] [id number] [place] [address] Jan, [facility] [address] [id number] [place] [address] Jan, [facility] [address] [id number] [place] [address] Dec, [facility] [address] [id number] [place] [address] Dec, [facility] [address] [id number] [place] [address] Dec, [facility] [address] [id number] [place] [address] Dec, [facility] [facility] [address] [id number] [place] [address] Oct, [facility] [id number] [place] [id number] Oct, [facility] [address] [id number] [place] [id number] Oct, [facility] [address] [id number] [place] [address] Oct, [facility] [address] [id number] [place] [address] Sep, [facility] [address] [id number] [place] [address] Sep, [facility] [address] [id number] [place] [address] Aug, [facility] [address] [id number] [place] [address] Aug, [facility] [address] [id number] [place] [address] Aug, [facility] [id number] [place] [address] Aug, [facility] [address] [id number] [place] [address] July, [facility] [address] [id number] [place] [address] Jun, [facility] [address] [id number] [place] [address] May, [facility] [address] [id number] [place] [address] 05 May, 2012 [facility] [address] [id number] [place] [address] May, [facility] [address] [id number] [place] [address] 05 May, 2012 [facility] [address] [id number] [place] [address] May, [facility] [address] [id number] [place] [address] Apr, [facility] [address] [id number] [place] [address] Apr, [facility] [address] [id number] [place] [address] Apr, [facility] [address] [id number] [place] [address] Apr, [facility] [address] [id number] [place] [address] Mar, [facility] [address] [id number] [place] [address] Mar, [facility] [address] [id number] [place] [address] Mar, [facility] [address] [id number] [place] [address] Mar, [facility] [address] [id number] [place] [address] Jan, [facility] [address] [id number] [place] [address] 16 Jan, 2012 [facility] [address] [id number] [place] [address] 15 Jan, 2012 [facility] [address] [id number] [place] [address] Jan, [facility] [id number] [place] [address] Jan, [facility] [id number] [place] [address] Jan, [facility] [id number] [place] [address] Jan, [facility] [address] [address] Jan, [facility] [address] [address] Jan, [facility] [address] [address] Jan, [facility] [address] [address] Dec, [facility] [id number] [place] [address] Dec, [facility] [address] [address] Dec, [facility] [address] [address] Nov, [facility] [address] [address] Nov, [facility] [address] [address] Nov, [facility] [id number] [place] [address] Nov, [facility] [address] [address] Oct, [facility] [address] [address] Oct, IMMUNIZATIONS No Known Immunizations SOCIAL HISTORY [...] egd 01/2019 Hospitalization History surgeries Hospitalization [facility]/[address] [facility]- 07/2018 Hospitalization [facility] - heart attack and rehab -03/02/2019
--- NOTE | 2019-07-20 17:17 | Diagnostic Imaging Report ---
INDICATION: Syncope. Swelling and bruising to the eye. COMPARISON: 07/19/2019. FINDINGS: Single frontal view of the chest demonstrates [id number]-[id number] cardiomegaly. Pulmonary vasculature is within normal limits. Lungs show mild diffuse prominence of the interstitium. There is no focal consolidation, large effusion, or pneumothorax. The visualized osseous structures show no acute abnormalities. IMPRESSION: 1. Lxti-oa-wgqjullj cardiomegaly. 2. Mild diffuse prominence of the pulmonary interstitium. Findings could be on the basis of interstitial edema or pneumonia, although underlying chronic interstitial lung disease cannot be excluded. Dictated by: Dictated on workstation # [id number]
[2019-07-20 17:18] LABS: WHITE BLOOD COUNT 11.1 10^3/uL (4.3-11.0)
[2019-07-20 17:19] LABS: HEMATOCRIT 13 % (35-52); HEMOGLOBIN 3.5 G/DL (11.5-16.0); MEAN CORPUSCULAR HEMOGLOBIN 25 PG (25-34); MEAN CORPUSCULAR HGB CONC 28 G/DL (32-36); MEAN CORPUSCULAR VOLUME 90 FL (80-99)
[2019-07-20 17:20] LABS: BASOPHILS % (AUTO) 0 % (0-10); EOSINOPHILS % (AUTO) 1 % (0-10); LYMPHOCYTES # (AUTO) 1.2 X 10^3 (1.0-4.0); LYMPHOCYTES % (AUTO) 10 % (12-44); MEAN PLATELET VOLUME 11.2 FL (7.4-10.4); MONOCYTES # (AUTO) 0.6 X 10^3 (0.0-1.0); MONOCYTES % (AUTO) 5 % (0-12); NEUTROPHILS # (AUTO) 9.3 X 10^3 (1.8-7.8); NEUTROPHILS % (AUTO) 83 % (42-75); PLATELET COUNT 189 10^3/uL (130-400); RED CELL DISTRIBUTION WIDTH 15.9 % (10.0-14.5)
[2019-07-20 17:21] LABS: ALANINE AMINOTRANSFERASE 18 U/L (0-55); ALKALINE PHOSPHATASE 70 U/L (40-136); BILIRUBIN,TOTAL 0.3 MG/DL (0.1-1.0); BUN/CREATININE RATIO 29; CALCIUM 8.8 MG/DL (8.5-10.1); CARBON DIOXIDE 20 MMOL/L (21-32); CHLORIDE 103 MMOL/L (98-107); CREATININE SERUM 1.57 MG/DL (0.60-1.30); GFR ESTIMATED 33; GLUCOSE 209 MG/DL (70-105); POTASSIUM 4.3 MMOL/L (3.6-5.0); SODIUM 139 MMOL/L (135-145)
[2019-07-20 17:22] LABS: ALBUMIN 3.6 GM/DL (3.2-4.5); TOTAL PROTEIN 6.5 GM/DL (6.4-8.2)
--- OUTSIDE RECORDS SUMMARY | 2019-07-20 17:23 | XMS REPORT | Continuity of Care Document ---
Demographics Preferred Language Unknown Marital Status Unknown Restorationism Affiliation Unknown Race Unknown Ethnic Group Unknown Author Organization Unknown Address Unknown Phone Unavailable Allergies Active Description Code Type Severity Reaction Onset Reported/Identified Relationship to Patient Clinical Status Yes No Known Drug Allergies [id number] Drug Allergy Unknown N/A 11/13/2011 Yes morphine [id number] Drug Allergy Severe hallucination 07/12/2018 Medications There [...] MD 786.5 0 UNSPECIFIED CHEST PAIN 11/13/2011 ARUNA WADE DOA K 786.50 UNSPECIFIED CHEST PAIN 11/13/2011 IBAN DAVALOS DDS 786.50 UNSPECIFIED CHEST PAIN 11/13/2011 GEE AMADO MD 786.5 0 UNSPECIFIED CHEST PAIN 11/13/2011 JOELLE DAVALOS DDS 786.50 UNSPECIFIED CHEST PAIN 11/13/2011 WADE DO JUSTICE K 786.50 UNSPECIFIED CHEST PAIN 11/13/2011 WADE DO, JUSTICE K 786.50 UNSPECIFIED CHEST PAIN 11/13/2011 MELINDA NUHA, VAN A 786.50 UNSPECIFIED CHEST PAIN 11/13/2011 IBAN DAVALOS DDS 786.50 UNSPECIFIED CHEST PAIN 11/13/2011 GEE AMADO MD 786.5 0 UNSPECIFIED CHEST PAIN 11/13/2011 GEE AMADO MD 786.5 0 UNSPECIFIED CHEST PAIN 11/13/2011 MADL SUZANNE BREENA L 786 .50 UNSPECIFIED CHEST PAIN 11/13/2011 GEE AMADO MD 786.5 0 UNSPECIFIED CHEST PAIN 11/13/2011 GEE AMADO MD 786.5 0 UNSPECIFIED CHEST PAIN 11/13/2011 GEE AMADO MD 786.5 0 UNSPECIFIED CHEST PAIN 11/13/2011 GEE AMADO MD 786.5 0 UNSPECIFIED CHEST PAIN 11/13/2011 GEE AMADO MD 786.5 0 UNSPECIFIED CHEST PAIN 11/16/2011 Ot 250.02 GIA B SHAHRAM WO COMPL, TYPE II OR UNSPEC TY 11/16/2011 Ot 272.4 HYPE RLIPIDEMIA NEC/NOS 11/16/2011 Ot 275.2 DIS MAGNESIUM METABOLISM 11/16/2011 Ot 276.1 HYPO SMOLALITY 11/16/2011 Ot 401.9 HYPE RTENSION NOS 11/16/2011 Ot 411.1 INTE RMED CORONARY SYND 11/16/2011 Ot 414.01 COR ONARY ATHEROSCLEROSIS OF [place] CORON 11/16/2011 Ot 530.81 ESO PHAGEAL REFLUX [...] RTENSION, UNSPECIFIED ESSENTIAL 12/16/2011 414.00 CAD 12/16/2011 IBAN DAVALOS DDS 250.02 DIABETES II UNCONTROLLED (UNCOMPLICATED) 12/16/2011 WHITE [...] WADE DO, JUSTICE K 414.00 CAD 12/16/2011 SUSANNAH DDSIBAN D 250.02 DIABETES II UNCONTROLLED (UNCOMPLICATED) 12/16/2011 SUSANNAH DDSIBAN D 40 1.9 HYPERTENSION, UNSPECIFIED ESSENTIAL 12/16/2011 WHITE DDS, IBAN D 414.00 CAD 12/16/2011 GEE AMADO MD 250.0 2 DIABETES II UNCONTROLLED (UNCOMPLICATED) 12/16/2011 GEE AAMDO MD 401.9 HYPERTENSION, UNSPECIFIED ESSENTIAL 12/16/2011 GEE AMADO MD 414.0 0 CAD 12/16/2011 SUSANNAH BANUELOSSYUEON J 250.02 DIABETES II UNCONTROLLED (UNCOMPLICATED) 12/16/2011 [...] WADE DO, JUSTICE K 414.00 CAD 12/16/2011 VAN LAWRENCE APRN 250.02 DIABETES II UNCONTROLLED (UNCOMPLICATED) 12/16/2011 MELINDA BUSINESS TRAINER, VAN A 40 1.9 HYPERTENSION, UNSPECIFIED ESSENTIAL 12/16/2011 MELINDA BUSINESS TRAINER, VAN A 414.00 CAD 12/16/2011 WHITE DDS, [...] GEE AMADO MD 414.0 0 CAD 12/16/2011 MADCarlos BUSINESS TRAINER, LALITO L 250 .02 DIABETES II UNCONTROLLED (UNCOMPLICATED) 12/16/2011 NINI BREEN, LALITO L 401 .9 HYPERTENSION, UNSPECIFIED ESSENTIAL 12/16/2011 NINI BUSINESS TRAINER, LALITO L 414 .00 CAD 12/16/2011 GEE [...] (3 YRS AND ABOVE, IM) 01/14/2012 GEE AMAOD MD V04.8 1 FLU DX (3 YRS AND ABOVE, IM) 01/14/2012 JUSTICE WADE DO V04.81 FLU DX (3 YRS AND ABOVE, IM) 01/14/2012 IBAN DAVALOS DDS V04.81 FLU DX (3 YRS AND ABOVE, IM) 01/14/2012 GEE AMADO MD V04.8 1 FLU DX (3 YRS AND ABOVE, IM) 01/14/2012 JOELLE DAVALOS DDS V04.81 FLU DX (3 YRS AND ABOVE, IM) 01/14/2012 JUSTICE WADE DO K V04.81 FLU DX (3 YRS AND ABOVE, IM) 01/14/2012 WADE ARUNA DOLANA K V04.81 FLU DX (3 YRS AND ABOVE, IM) 01/14/2012 VAN LAWRENCE APRN V04.81 FLU DX (3 YRS AND ABOVE, IM) 01/14/2012 SUSANNAH CHEN, IBAN Phillip V04.81 FLU DX (3 YRS AND ABOVE, IM) 01/14/2012 GEE AMADO MD V04.8 1 FLU DX (3 YRS AND ABOVE, IM) 01/14/2012 GEE AMADO MD V04.8 1 FLU DX (3 YRS AND ABOVE, IM) 01/14/2012 BEATRIZL BUSINESS TRAINER, LALITO L V04 .81 FLU DX (3 YRS AND [...] 04/13/2012 GEE AMADO MD 272.4 HYPERLIPIDEMIA 04/13/2012 JUSTICE WADE DO K 272.4 HYPERLIPIDEMIA 04/13/2012 WHITE DDS, IBAN D 27 2.4 HYPERLIPIDEMIA 04/13/2012 GEE AMADO MD 272.4 HYPERLIPIDEMIA 04/13/2012 WHITE DDS, JOELLE J 27 2.4 HYPERLIPIDEMIA 04/13/2012 WADE DO, JUSTICE K 272.4 HYPERLIPIDEMIA 04/13/2012 WADE DO, JUSTICE K 272.4 HYPERLIPIDEMIA 04/13/2012 MELINDA BUSINESS TRAINER, VAN A 27 2.4 HYPERLIPIDEMIA 04/13/2012 WHITE DDS, IBAN D 27 2.4 HYPERLIPIDEMIA 04/13/2012 GEE AMADO MD 272.4 HYPERLIPIDEMIA 04/13/2012 GEE AMADO MD 272.4 HYPERLIPIDEMIA 04/13/2012 MADCarlos BUSINESS TRAINER, LALITO L 272 .4 HYPERLIPIDEMIA 04/13/2012 GEE AMADO [...] 250.0 0 DIABETES MELLITUS POORLY CONTROLLED 05/10/2012 WHITE DDS, JOELLE J 250.00 DIABETES MELLITUS POORLY CONTROLLED 05/10/2012 WADE DO, JUSTICE K 250.00 DIABETES MELLITUS POORLY CONTROLLED 05/10/2012 WADE DO, JUSTICE K 250.00 DIABETES MELLITUS POORLY CONTROLLED 05/10/2012 MELINDA BREEN VAN A 250.00 DIABETES MELLITUS POORLY CONTROLLED 05/10/2012 WHITE [...] 357.2 POLY NEUROPATHY IN DIABETES 10/10/2012 SUSANNAH DDS, IBAN D 35 7.2 POLYNEUROPATHY IN DIABETES 10/10/2012 SUSANNAH BANUELOSS IBAN D 35 7.2 POLYNEUROPATHY IN DIABETES 10/10/2012 GEE AMADO MD 357.2 POLYNEUROPATHY IN DIABETES 10/10/2012 WADE DO, JUSTICE K 357.2 POLYNEUROPATHY IN DIABETES 10/10/2012 IBAN DAVALOS DDS 35 7.2 POLYNEUROPATHY IN DIABETES 10/10/2012 GEE AMADO MD 357.2 POLYNEUROPATHY IN DIABETES 10/10/2012 JOELLE DAVALOS DDS 35 7.2 POLYNEUROPATHY IN DIABETES 10/10/2012 WADE DO, JUSTICE K 357.2 POLYNEUROPATHY IN DIABETES 10/10/2012 WADE DO, JUSTICE K 357.2 POLYNEUROPATHY IN DIABETES 10/10/2012 VAN LAWRENCE APRN A 35 7.2 POLYNEUROPATHY IN DIABETES 10/10/2012 IBAN [...] MD Ot 414. 01 CORONARY ATHEROSCLEROSIS OF [place] CORON 08/28/2013 BOOM MILLER MD Ot 786. [...] FRACTURE OF CERVICAL VERTEBRA UNSPECIFIED LEVEL 02/06/2014 ALLITO TERRAZAS APRN L 805 .00 CLOSED FRACTURE OF CERVICAL VERTEBRA [...] VERTEBRA UNSPECIFIED LEVEL 03/06/2014 LALITO TERRAZAS APRN L 719 .43 PAIN IN JOINT INVOLVING FOREARM 03/06/2014 LALITO TERRAZAS APRN L 719 .44 PAIN IN JOINT INVOLVING HAND [...] 4 PAIN IN JOINT INVOLVING HAND 06/01/2014 INGRIS MARAVILLA, GEE 338.2 9 OTHER CHRONIC PAIN 08/16/2014 JEFRY PA, VIVIANA K Ot 250.00 08/16/2014 JEFRY PA, VIVIANA K Ot 272.4 08/16/2014 JEFRY PA, VIVIANA K Ot 401.9 08/16/2014 JEFRY PA, VIVIANA K Ot 414.00 08/16/2014 JEFRY PA, VIVIANA K Ot 786.50 08/16/2014 VAN LAWRENCE APRN Ot V76.12 02/27/2015 JEFRY PA, VIVIANA K Ot 250.00 02/27/2015 JEFRY PA, VIVIANA K Ot 272.4 02/27/2015 JEFRY FLOREZ, VIVIANA K Ot 401.9 02/27/2015 JEFRY FLOREZ, VIVIANA K Ot 414.00 02/27/2015 JEFRY FLOREZ, VIVIANA K Ot 786.50 02/27/2015 VAN LAWRENCE APRN Ot V76.12 03/13/2015 BOOM MILLER MD Ot E11. 9 TYPE 2 DIABETES MELLITUS WITHOUT COMPLIC 03/13/2015 BOOM MILLER MD, Ot E66. 9 OBESITY, UNSPECIFIED 03/13/2015 BOOM MILLER MD Ot E78. 5 HYPERLIPIDEMIA, UNSPECIFIED 03/13/2015 BOOM MILLER MD Ot G89. 29 OTHER CHRONIC PAIN 03/13/2015 BOOM MILLER MD Ot I10 ESSENTIAL (PRIMARY) HYPERTENSION 03/13/2015 BOOM MILLER MD Ot I11. 9 HYPERTENSIVE HEART DISEASE WITHOUT HEART 03/13/2015 BOOM MILLER MD Ot I25. 10 ATHSCL HEART DISEASE OF [place] CORONARY 03/13/2015 BOOM MILLER MD Ot R07. 89 OTHER CHEST PAIN 03/13/2015 BOOM MILLER MD, Ot Z68. 35 BODY MASS INDEX (BMI) 35.0-35.9, ADULT 03/13/2015 BOOM MILLER MD Ot Z79. 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 08/09/2015 Ot I10 ESSENT IAL (PRIMARY) HYPERTENSION 08/09/2015 Ot I25.10 ATH SCL HEART DISEASE OF [place] CORONARY 08/12/2015 XANDER ESQUIVEL MD Ot M54.12 [...] Ot I25.10 ATH SCL HEART DISEASE OF [place] CORONARY 09/11/2015 ILANA SANTAMARIA MD Ot M54.2 CERVICALGIA 09/11/2015 ILANA SANTAMARIA MD Ot M54.2 CERVICALGIA 09/11/2015 XANDER ESQUIVEL MD Ot M54.12 RADICULOPATHY, CERVICAL REGION 09/11/2015 ALVIN MARAVILLA, XANDER Topete Ot Z98 .1 ARTHRODESIS STATUS 09/13/2015 ILANA SANTAMARIA MD Ot M48.0 2 SPINAL STENOSIS, CERVICAL REGION 09/13/2015 ILANA SANTAMARIA MD Ot M50.3 0 OTHER CERVICAL DISC DEGENERATION, UNSP C 10/08/2015 ILANA SANTAMARIA MD Ot M48.0 2 SPINAL STENOSIS, CERVICAL REGION 10/08/2015 ILANA SANTAMARIA MD, Ot M50.3 0 OTHER CERVICAL DISC DEGENERATION, UNSP C 02/22/2017 VIVIANA COTTO Ot 250.00 DIAB SHAHRAM WO COMPL, TYPE II OR UNSPEC TY 02/22/2017 VIVIANA COTTO Ot 272.4 HYPERLIPIDEMIA NEC/NOS 02/22/2017 VIVIANA COTTO Ot 401.9 HYPERTENSION NOS 02/22/2017 VIVIANA COTTO Ot 414.00 CORON ATHEROSCLER NOS TYPE VESSEL, NATIV 02/22/2017 VIVIANA COTTO Ot 786.50 CHEST PAIN NOS 02/22/2017 MELINDA VAN A BUSINESS TRAINER Ot V76.12 OTH SCREEN MAMMO-MALIGN NEOPLASM OF [place] 02/22/2017 BOOM MILLER MD Ot E78. 5 HYPERLIPIDEMIA, UNSPECIFIED 02/22/2017 BOOM MILLER MD Ot I10 ESSENTIAL (PRIMARY) HYPERTENSION 02/22/2017 BOOM MILLER MD Ot I25. 10 ATHSCL HEART DISEASE OF [place] CORONARY 02/22/2017 BOOM MILLER MD Ot R07. 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 10 ATHSCL HEART DISEASE OF [place] CORONARY 03/06/2017 BOOM MILLER MD Ot Z79. 84 ASSISTED (CURRENT) USE OF ORAL HYPOGLYC 03/17/2017 BOOM [...] Ot E78. 5 HYPERLIPIDEMIA, UNSPECIFIED 03/25/2017 BOOM MILLER MD Ot I10 ESSENTIAL (PRIMARY) HYPERTENSION 03/25/2017 BOOM MILLER MD Ot I25. 10 ATHSCL HEART DISEASE OF [place] CORONARY 03/25/2017 BOOM MILLER MD Ot I48. 91 UNSPECIFIED ATRIAL FIBRILLATION 03/26/2017 BOOM MILLER MD Ot E78. 5 HYPERLIPIDEMIA, UNSPECIFIED 03/26/2017 BOOM MILLER MD Ot I10 ESSENTIAL (PRIMARY) HYPERTENSION 03/26/2017 BOOM MILLER MD Ot I25. 10 ATHSCL HEART DISEASE OF [place] CORONARY 03/26/2017 BOOM MILLER MD Ot I48. [...] Ot I25. 10 ATHSCL HEART DISEASE OF [place] CORONARY 04/01/2017 BOOM MILLER MD Ot I48. 91 UNSPECIFIED ATRIAL FIBRILLATION 04/01/2017 BOOM MILLER MD Ot R06. 83 SNORING 04/01/2017 BOOM MILLER MD Ot Z68. 35 BODY MASS INDEX (BMI) 35.0-35.9, ADULT 04/01/2017 BOOM MILLER MD Ot Z79. 4 ASSISTED (CURRENT) USE OF INSULIN 04/01/2017 BOOM MILLER MD Ot Z79. 82 ASSISTED (CURRENT) USE OF ASPIRIN 04/01/2017 BOOM MILLER MD Ot Z79.899 OTHER ASSISTED (CURRENT) DRUG THERAPY 04/01/2017 BOOM MILLER MD [...] NEOPLASM OF [place] 04/02/2017 BOOM MILLER MD Ot E78. 5 HYPERLIPIDEMIA, UNSPECIFIED 04/02/2017 BOOM MILLER MD Ot I10 ESSENTIAL (PRIMARY) HYPERTENSION 04/02/2017 BOOM MILLER MD Ot I25. 10 ATHSCL HEART DISEASE OF [place] CORONARY 04/02/2017 BOOM MILLER MD Ot R07. 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 1 PURE HYPERGLYCERIDEMIA 04/02/2017 BOOM MILLER MD Ot E78. 2 MIXED HYPERLIPIDEMIA 04/02/2017 BOOM MILLER MD Ot I11. 0 HYPERTENSIVE [...] Ot I25. 10 ATHSCL HEART DISEASE OF [place] CORONARY 04/02/2017 BOOM MILLER MD Ot I48. 91 UNSPECIFIED ATRIAL FIBRILLATION 04/02/2017 BOOM MILLER MD Ot R06. 83 SNORING 04/02/2017 BOOM MILLER MD Ot Z68. 35 BODY MASS INDEX (BMI) 35.0-35.9, ADULT 04/02/2017 BOOM MILLER MD Ot Z79. 4 ASSISTED (CURRENT) USE OF INSULIN 04/02/2017 BOOM MILLER MD Ot Z79. 82 RADIATION ONCOLOGY THERAPIST (CURRENT) USE OF ASPIRIN 04/02/2017 BOOM MILLER MD Ot Z79.899 OTHER RADIATION ONCOLOGY THERAPIST (CURRENT) DRUG THERAPY 04/02/2017 BOOM MILLER MD [...] Ot I25. 10 ATHSCL HEART DISEASE OF [place] CORONARY 04/20/2017 BOOM MILLER MD Ot I48. 91 UNSPECIFIED ATRIAL FIBRILLATION 04/20/2017 BOOM MILLER MD Ot R06. 83 SNORING 04/20/2017 BOOM MILLER MD Ot Z68. 35 BODY MASS INDEX (BMI) 35.0-35.9, ADULT 04/20/2017 BOOM MILLER MD Ot Z79. 4 ASSISTED (CURRENT) USE OF INSULIN 04/20/2017 BOOM MILLER MD Ot Z79. 82 RADIATION ONCOLOGY THERAPIST (CURRENT) USE OF ASPIRIN 04/20/2017 BOOM MILLER MD Ot Z79.899 OTHER ASSISTED (CURRENT) DRUG THERAPY 04/20/2017 BOOM MILLER MD Ot Z95. 5 PRESENCE OF CORONARY ANGIOPLASTY IMPLANT 05/14/2017 BOOM MILLER MD Ot I48. 91 UNSPECIFIED ATRIAL FIBRILLATION 06/27/2017 BOOM MILLER MD Ot I48. 91 UNSPECIFIED ATRIAL FIBRILLATION 06/29/2017 BOOM MILLER MD Ot I48. 91 UNSPECIFIED ATRIAL FIBRILLATION 09/24/2017 JEFRY FLOREZ VIVIANA K Ot 250.00 DIAB SHAHRAM WO COMPL, TYPE II OR UNSPEC TY 09/24/2017 VIVIANA COTTO Ot 272.4 HYPERLIPIDEMIA NEC/NOS 09/24/2017 JEFRY FLOREZ VIVIANA K Ot 401.9 HYPERTENSION NOS 09/24/2017 VIVIANA COTTO Ot 414.00 CORON ATHEROSCLER NOS TYPE VESSEL, NATIV 09/24/2017 VIVIANA COTTO Ot 786.50 CHEST PAIN NOS 09/24/2017 MELINDA, VANGRETTA Cleary APRN Ot V76.12 OTH SCREEN MAMMO-MALIGN NEOPLASM OF [place] 09/24/2017 BOOM MILLER MD Ot E78. 5 HYPERLIPIDEMIA, UNSPECIFIED 09/24/2017 BOOM MILLER MD Ot I10 ESSENTIAL (PRIMARY) HYPERTENSION 09/24/2017 BOOM MILLER MD Ot I25. 10 ATHSCL HEART DISEASE OF [place] CORONARY 09/24/2017 BOOM MILLER MD Ot R07. 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 10 ATHSCL HEART DISEASE OF [place] CORONARY 09/24/2017 BOOM MILLER MD Ot I48. 91 UNSPECIFIED ATRIAL FIBRILLATION 09/24/2017 BOOM MILLER MD Ot R06. 83 SNORING 09/24/2017 BOOM MILLER MD Ot Z68. 35 BODY MASS INDEX (BMI) 35.0-35.9, ADULT 09/24/2017 BOOM MILLER MD Ot Z79. 4 ASSISTED (CURRENT) USE OF INSULIN 09/24/2017 BOOM MILLER MD Ot Z79. 82 RADIATION ONCOLOGY THERAPIST (CURRENT) USE OF ASPIRIN 09/24/2017 BOOM MILLER MD Ot Z79.899 OTHER RADIATION ONCOLOGY THERAPIST (CURRENT) DRUG THERAPY 09/24/2017 BOOM MILLER MD [...] Ot I25. 10 ATHSCL HEART DISEASE OF [place] CORONARY 01/14/2018 BOOM MILLER MD Ot I48. 91 UNSPECIFIED ATRIAL FIBRILLATION 01/14/2018 BOOM MILLER MD Ot R06. 83 SNORING 01/14/2018 BOOM MILLER MD Ot Z68. 35 BODY MASS INDEX (BMI) 35.0-35.9, ADULT 01/14/2018 BOOM MILLER MD Ot Z79. 4 ASSISTED (CURRENT) USE OF INSULIN 01/14/2018 BOOM MILLER MD Ot Z79. 82 ASSISTED (CURRENT) USE OF ASPIRIN 01/14/2018 BOOM MILLER MD Ot Z79.899 OTHER ASSISTED (CURRENT) DRUG THERAPY 01/14/2018 BOOM MILLER MD [...] Ot I25. 10 ATHSCL HEART DISEASE OF [place] CORONARY 01/14/2018 BOOM MILLER MD Ot I48. 91 UNSPECIFIED ATRIAL FIBRILLATION 01/14/2018 BOOM MILLER MD Ot R06. 83 SNORING 01/14/2018 BOOM MILLER MD Ot Z68. 35 BODY MASS INDEX (BMI) 35.0-35.9, ADULT 01/14/2018 BOOM MILLER MD Ot Z79. 4 ASSISTED (CURRENT) USE OF INSULIN 01/14/2018 BOOM MILLER MD Ot Z79. 82 RADIATION ONCOLOGY THERAPIST (CURRENT) USE OF ASPIRIN 01/14/2018 BOOM MILLER MD Ot Z79.899 OTHER RADIATION ONCOLOGY THERAPIST (CURRENT) DRUG THERAPY 01/14/2018 BOOM MILLER MD Ot Z95. 5 PRESENCE OF CORONARY ANGIOPLASTY IMPLANT 02/05/2018 BOOM MILLER MD Ot I48. 0 PAROXYSMAL ATRIAL FIBRILLATION 02/05/2018 BOOM MILLER MD, Ot I48. 0 PAROXYSMAL ATRIAL FIBRILLATION 02/07/2018 BOOM MILLER MD, Ot I48. 0 PAROXYSMAL ATRIAL FIBRILLATION 02/07/2018 BOOM MILLER MD Ot Z51. 81 ENCOUNTER FOR THERAPEUTIC DRUG LEVEL MON 02/07/2018 BOOM MILLER MD Ot Z79. 01 ASSISTED (CURRENT) USE OF ANTICOAGULANT 02/28/2018 BOOM MILLER MD Ot I48. 0 PAROXYSMAL ATRIAL FIBRILLATION 02/28/2018 BOOM MILLER MD Ot Z51. 81 ENCOUNTER FOR THERAPEUTIC DRUG LEVEL MON 02/28/2018 BOOM MILLER MD Ot Z79. 01 RADIATION ONCOLOGY THERAPIST (CURRENT) USE OF ANTICOAGULANT 03/02/2018 BOOM MILLER [...] Ot 786.50 CHEST PAIN NOS 03/09/2018 MELINDAVAN CHISHOLM BUSINESS TRAINER Ot V76.12 OTH SCREEN MAMMO-MALIGN NEOPLASM OF [place] 03/09/2018 BOOM MILLER MD Ot E78. 5 HYPERLIPIDEMIA, UNSPECIFIED 03/09/2018 BOOM MILLER MD Ot I10 ESSENTIAL (PRIMARY) HYPERTENSION 03/09/2018 BOOM MILLER MD Ot I25. 10 ATHSCL HEART DISEASE OF [place] CORONARY 03/09/2018 BOOM MILLER MD Ot R07. 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 10 ATHSCL HEART DISEASE OF [place] CORONARY 03/09/2018 BOOM MILLER MD Ot I48. 91 UNSPECIFIED ATRIAL FIBRILLATION 03/09/2018 BOOM MILLER MD Ot R06. 83 SNORING 03/09/2018 BOOM MILLER MD Ot Z68. 35 BODY MASS INDEX (BMI) 35.0-35.9, ADULT 03/09/2018 BOOM MILLER MD Ot Z79. 4 ASSISTED (CURRENT) USE OF INSULIN 03/09/2018 BOOM MILLER MD Ot Z79. 82 RADIATION ONCOLOGY THERAPIST (CURRENT) USE OF ASPIRIN 03/09/2018 BOOM MILLER MD Ot Z79.899 OTHER ASSISTED (CURRENT) DRUG THERAPY 03/09/2018 BOOM MILLER MD Ot Z95. 5 PRESENCE OF CORONARY ANGIOPLASTY IMPLANT 03/09/2018 BOOM MILLER MD Ot I48. 91 UNSPECIFIED ATRIAL FIBRILLATION 03/09/2018 BOOM MILLER MD Ot I48. 0 PAROXYSMAL ATRIAL FIBRILLATION 03/09/2018 BOOM MILLER MD Ot Z51. 81 ENCOUNTER FOR THERAPEUTIC DRUG LEVEL MON 03/09/2018 BOOM MILLER MD Ot Z79. 01 ASSISTED (CURRENT) USE OF ANTICOAGULANT 03/09/2018 BOOM MILLER [...] Ot I25. 10 ATHSCL HEART DISEASE OF [place] CORONARY 03/09/2018 BOOM MILLER MD Ot I35. 0 NONRHEUMATIC AORTIC (VALVE) STENOSIS 03/09/2018 BOOM MILLER MD Ot I48. 0 PAROXYSMAL ATRIAL FIBRILLATION 03/09/2018 BOOM MILLER MD Ot R07. 9 CHEST PAIN, UNSPECIFIED 03/09/2018 BOOM MILLER MD Ot Z68. 37 BODY MASS INDEX (BMI) 37.0-37.9, ADULT 03/09/2018 BOOM MILLER MD Ot Z79. 4 ASSISTED (CURRENT) USE OF INSULIN 03/09/2018 BOOM MILLER MD Ot Z79.899 OTHER ASSISTED (CURRENT) DRUG THERAPY 03/09/2018 BOOM MILLER MD [...] Ot I25. 10 ATHSCL HEART DISEASE OF [place] CORONARY 03/11/2018 BOOM MILLER MD Ot I35. 0 NONRHEUMATIC AORTIC (VALVE) STENOSIS 03/11/2018 BOOM MILLER MD Ot I48. 0 PAROXYSMAL ATRIAL FIBRILLATION 03/11/2018 BOOM MILLER MD Ot R07. 9 CHEST PAIN, UNSPECIFIED 03/11/2018 BOOM MILLER MD Ot Z68. 37 BODY MASS INDEX (BMI) 37.0-37.9, ADULT 03/11/2018 BOOM MILLER MD Ot Z79. 4 RADIATION ONCOLOGY THERAPIST (CURRENT) USE OF INSULIN 03/11/2018 BOOM MILLER MD Ot Z79.899 OTHER RADIATION ONCOLOGY THERAPIST (CURRENT) DRUG THERAPY 03/11/2018 BOOM MILLER MD Ot Z87.891 PERSONAL HISTORY OF NICOTINE DEPENDENCE 03/11/2018 BOOM MILLER MD Ot Z95. 5 PRESENCE OF CORONARY ANGIOPLASTY IMPLANT 03/31/2018 BOOM MILLER MD Ot Z79. 01 RADIATION ONCOLOGY THERAPIST (CURRENT) USE OF ANTICOAGULANT 04/18/2018 BOOM MILLER MD Ot Z79. 01 RADIATION ONCOLOGY THERAPIST (CURRENT) USE OF ANTICOAGULANT 05/05/2018 BOOM MILLER MD Ot I48. 0 PAROXYSMAL ATRIAL FIBRILLATION 05/05/2018 BOOM MILLER MD Ot Z79. 01 ASSISTED (CURRENT) USE OF ANTICOAGULANT 05/30/2018 BOOM MILLER MD Ot I48. 0 PAROXYSMAL ATRIAL FIBRILLATION 05/30/2018 BOOM MILLER MD Ot Z79. 01 ASSISTED (CURRENT) USE OF ANTICOAGULANT 06/06/2018 BOOM MILLER MD Ot I48. 0 PAROXYSMAL ATRIAL FIBRILLATION 06/06/2018 BOOM MILLER MD Ot Z79. 01 ASSISTED (CURRENT) USE OF ANTICOAGULANT 07/11/2018 BOOM MILLER MD Ot I48. 0 PAROXYSMAL ATRIAL FIBRILLATION 07/11/2018 BOOM MILLER MD Ot Z79. 01 RADIATION ONCOLOGY THERAPIST (CURRENT) USE OF ANTICOAGULANT 07/12/2018 BOOM MILLER MD Ot I48. 0 PAROXYSMAL ATRIAL FIBRILLATION 07/12/2018 BOOM MILLER MD Ot Z79. 01 ASSISTED (CURRENT) USE OF ANTICOAGULANT 07/12/2018 MICHAEL DE LA GARZA MD J Ot A41. 9 SEPSIS, UNSPECIFIED ORGANISM 07/12/2018 MICHAEL DE LA GARZA MD Ot E11. 9 TYPE 2 DIABETES MELLITUS WITHOUT COMPLIC 07/12/2018 MICHAEL DE LA GARZA MD J Ot E78. 5 HYPERLIPIDEMIA, UNSPECIFIED 07/12/2018 MICHAEL DE LA GARZA MD Ot I11. 0 HYPERTENSIVE HEART DISEASE WITH HEART FA 07/12/2018 MICHAEL DE LA GARZA MD Ot I21. A1 MYOCARDIAL INFARCTION TYPE 2 07/12/2018 MICHAEL DE LA GARZA MD J Ot I25. 10 ATHSCL HEART DISEASE OF [place] CORONARY 07/12/2018 MICHAEL DE LA GARZA MD J Ot I48. 91 UNSPECIFIED ATRIAL FIBRILLATION 07/12/2018 MICHAEL DE LA GARZA MD J Ot I50. 30 UNSPECIFIED DIASTOLIC (CONGESTIVE) HEART 07/12/2018 MICHAEL DE LA GARZA MD J Ot I70. 0 ATHEROSCLEROSIS OF [place] 07/12/2018 MICHAEL DE LA GARZA MD J Ot J18. 9 PNEUMONIA, UNSPECIFIED ORGANISM 07/12/2018 MICHAEL DE LA GARZA MD J Ot K21. 9 GASTRO-ESOPHAGEAL REFLUX DISEASE WITHOUT 07/12/2018 MICHAEL DE LA GARZA MD J Ot N39. 0 URINARY TRACT INFECTION, SITE NOT SPECIF 07/12/2018 MICHAEL DE LA GARZA MD J Ot R07. 9 CHEST PAIN, UNSPECIFIED 07/12/2018 MICHAEL DE LA GARZA MD J Ot R50. 9 FEVER, UNSPECIFIED 07/12/2018 MICHAEL DE LA GARZA MD Ot Z79. 01 RADIATION ONCOLOGY THERAPIST (CURRENT) USE OF ANTICOAGULANT 07/12/2018 MICHAEL DE LA GARZA MD Ot Z79. 02 RADIATION ONCOLOGY THERAPIST (CURRENT) USE OF ANTITHROMBOTI 07/12/2018 MICHAEL DE LA GARZA MD Ot Z79. 4 RADIATION ONCOLOGY THERAPIST (CURRENT) USE OF INSULIN 07/12/2018 MICHAEL DE LA GARZA MD Ot Z79. 82 ASSISTED (CURRENT) USE OF ASPIRIN 07/12/2018 MICHAEL DE [...] Ot I25. 10 ATHSCL HEART DISEASE OF [place] CORONARY 07/14/2018 MICHAEL DE LA GARZA MD [...] DE LA GARZA MD, Ot Z79. 01 ASSISTED (CURRENT) USE OF ANTICOAGULANT 07/14/2018 MICHAEL DE LA GARZA MD, Ot Z79. 02 ASSISTED (CURRENT) USE OF ANTITHROMBOTI 07/14/2018 MICHAEL DE LA GARZA MD Ot Z79. 4 ASSISTED (CURRENT) USE OF INSULIN 07/14/2018 MICHAEL DE LA GARZA MD Ot Z79. 82 RADIATION ONCOLOGY THERAPIST (CURRENT) USE OF ASPIRIN 07/14/2018 MICHAEL DE [...] KIDNEY DISEASE W ST 07/23/2018 Jaime GARSIA MD Ot I25.10 ATHSCL HEART DISEASE OF [place] CORONARY 07/23/2018 Jaime GARSIA MD Ot I48 .0 PAROXYSMAL ATRIAL FIBRILLATION 07/23/2018 Jaime GARSIA MD Ot I95 .2 HYPOTENSION DUE TO DRUGS 07/23/2018 Jaime GARSIA MD Ot K21 .9 GASTRO-ESOPHAGEAL REFLUX DISEASE WITHOUT 07/23/2018 Jaime GARSIA MD Ot M54 .9 DORSALGIA, UNSPECIFIED 07/23/2018 Jaime GARSIA MD Ot N18 .9 CHRONIC KIDNEY DISEASE, UNSPECIFIED 07/23/2018 Jaime GARSIA MD, Ot N28 .9 DISORDER OF KIDNEY AND URETER, UNSPECIFI 07/23/2018 Jaime GARSIA MD Ot R00 .1 BRADYCARDIA, UNSPECIFIED 07/23/2018 Jaime GARSIA MD, Ot R57 .0 CARDIOGENIC SHOCK 07/23/2018 Jaime GARSIA MD Ot Z68.38 BODY MASS INDEX (BMI) 38.0-38.9, ADULT 07/23/2018 Jaime GARSIA MD, Ot Z79.01 ASSISTED (CURRENT) USE OF ANTICOAGULANT 07/23/2018 Jaime GARSIA MD Ot Z87.19 PERSONAL HISTORY OF OTHER DISEASES OF TH 07/23/2018 Jaime GARSIA MD Ot Z87.891 PERSONAL HISTORY [...] MD Ot I25.10 ATHSCL HEART DISEASE OF [place] CORONARY 07/24/2018 Jaime GARSIA MD Ot I48 [...] ADULT 07/24/2018 Jaime GARSIA MD Ot Z79.01 RADIATION ONCOLOGY THERAPIST (CURRENT) USE OF ANTICOAGULANT 07/24/2018 Jaime GARSIA [...] MD, Ot I25.10 ATHSCL HEART DISEASE OF [place] CORONARY 07/24/2018 Jaime GARSIA MD Ot I48 [...] ADULT 07/24/2018 Jaime GARSIA MD Ot Z79.01 RADIATION ONCOLOGY THERAPIST (CURRENT) USE OF ANTICOAGULANT 07/24/2018 Jaime GARSIA [...] GARSIA MD, Ot E87 .5 HYPERKALEMIA 07/24/2018 KHALID MD, M RENEE Ot F41 .9 ANXIETY DISORDER, UNSPECIFIED 07/24/2018 Jaime GARSIA MD, Ot G47.33 OBSTRUCTIVE SLEEP APNEA (ADULT) (PEDIATR 07/24/2018 Jaime GARSIA MD, Ot G89.29 OTHER CHRONIC PAIN 07/24/2018 Jaime GARSIA MD, Ot I12 .9 HYPERTENSIVE CHRONIC KIDNEY DISEASE W ST 07/24/2018 Jaime GARSIA MD, Ot I25.10 ATHSCL HEART DISEASE OF [place] CORONARY 07/24/2018 Jaime GARSIA MD Ot I48 [...] CARDIOGENIC SHOCK 07/24/2018 Jaime GARSIA MD Ot T82.855D STENOSIS OF CORONARY ARTERY STENT, SUBSE 07/24/2018 Jaime GARSIA MD, Ot Z68.38 BODY MASS INDEX (BMI) 38.0-38.9, ADULT 07/24/2018 Jaime GARSIA MD, Ot Z79.01 RADIATION ONCOLOGY THERAPIST (CURRENT) USE OF ANTICOAGULANT 07/24/2018 Jaime GARSIA MD, Ot Z79 .4 ASSISTED (CURRENT) USE OF INSULIN 07/24/2018 Jiame GARSIA MD, Ot Z87.19 PERSONAL HISTORY OF [...] Ot I25. 10 ATHSCL HEART DISEASE OF [place] CORONARY 12/15/2018 MICHAEL DE LA GARZA MD [...] DE LA GARZA MD Ot Z79. 01 RADIATION ONCOLOGY THERAPIST (CURRENT) USE OF ANTICOAGULANT 12/15/2018 MICHAEL DE LA GARZA MD Ot Z79. 02 ASSISTED (CURRENT) USE OF ANTITHROMBOTI 12/15/2018 MICHAEL DE LA GARZA MD Ot Z79. 4 ASSISTED (CURRENT) USE OF INSULIN 12/15/2018 MICHAEL DE LA GARZA MD Ot Z79. 82 RADIATION ONCOLOGY THERAPIST (CURRENT) USE OF ASPIRIN 12/15/2018 MICHAEL DE LA GARZA MD Ot Z87. 19 PERSONAL HISTORY OF OTHER DISEASES OF TH 12/15/2018 MICHAEL DE LA GARZA MD Ot Z87.891 PERSONAL HISTORY OF NICOTINE DEPENDENCE 12/15/2018 MICHAEL DE LA GARZA MD Ot Z88. 5 ALLERGY STATUS TO NARCOTIC AGENT STATUS 12/15/2018 MICHAEL DE LA GARZA MD Ot Z95. 5 PRESENCE OF CORONARY ANGIOPLASTY IMPLANT 01/13/2019 ZACK ESCOBEDO DO Ot E11.9 TYPE 2 DIABETES MELLITUS WITHOUT COMPLIC 01/13/2019 ZACK ESCOBEDO DO Ot E66.9 OBESITY, UNSPECIFIED 01/13/2019 WILTON ESCOBEDO DOI Ot E78.00 PURE HYPERCHOLESTEROLEMIA, UNSPECIFIED 01/13/2019 GREGG DOLAN ZACK Ot E78.5 HYPERLIPIDEMIA, UNSPECIFIED 01/13/2019 GREGG DOLAN ZACK Ot E83.39 OTHER DISORDERS OF PHOSPHORUS METABOLISM 01/13/2019 ZACK ESCOBEDO DO Ot G47.33 OBSTRUCTIVE SLEEP APNEA (ADULT) (PEDIATR 01/13/2019 WILTON ESCOBEDO DOI Ot G89.29 OTHER CHRONIC PAIN 01/13/2019 ZACK ESCOBEDO DO Ot I13.0 HYP HRT CHR KDNY DIS W HRT FAIL AND ST 01/13/2019 ZACK ESCOBEDO DO Ot I21.A1 MYOCARDIAL INFARCTION TYPE 2 01/13/2019 WILTON ESCOBEDO DOI Ot I25.10 ATHSCL HEART DISEASE OF [place] CORONARY 01/13/2019 ZACK ESCOBEDO DO Ot I25.2 OLD MYOCARDIAL INFARCTION 01/13/2019 WILTON ESCOBEDO DOI Ot I27.20 PULMONARY HYPERTENSION, UNSPECIFIED 01/13/2019 GREGG DOLAN ZACK Ot I34.0 NONRHEUMATIC MITRAL (VALVE) INSUFFICIENC 01/13/2019 WILTON ESCOBEDO DOI Ot I48.0 PAROXYSMAL ATRIAL FIBRILLATION 01/13/2019 GREGG DOLAN ZACK Ot I50.31 ACUTE DIASTOLIC (CONGESTIVE) HEART FAILU 01/13/2019 ZACK ESCOBEDO DO Ot J44.1 CHRONIC OBSTRUCTIVE PULMONARY DISEASE W 01/13/2019 ZACK ESCOBEDO DO Ot J96.01 ACUTE RESPIRATORY FAILURE WITH HYPOXIA 01/13/2019 WILTON ESCOBEDO DOI Ot K21.9 GASTRO-ESOPHAGEAL REFLUX DISEASE WITHOUT 01/13/2019 GREGG DOLAN ZACK Ot N17.9 ACUTE KIDNEY FAILURE, UNSPECIFIED 01/13/2019 ZACK ESCOBEDO DO Ot N18.9 CHRONIC KIDNEY DISEASE, UNSPECIFIED 01/13/2019 WILTON ESCOBEDO DOI Ot Z68.41 BODY MASS INDEX (BMI) 40.0-44.9, ADULT 01/13/2019 ZACK ESCOBEDO DO Ot Z79.01 ASSISTED (CURRENT) USE OF ANTICOAGULANT 01/13/2019 ZACK ESCOBEDO DO Ot Z79.82 ASSISTED (CURRENT) USE OF ASPIRIN 01/13/2019 ZACK ESCOBEDO DO Ot Z87.89 1 PERSONAL HISTORY OF NICOTINE DEPENDENCE 01/13/2019 ZACK ESCOBEDO DO Ot Z91.19 PATIENT'S NONCOMPLIANCE W [facility] 01/13/2019 ZACK ESCOBEDO DO Ot Z95.5 PRESENCE OF CORONARY ANGIOPLASTY IMPLANT 01/13/2019 ZACK ESCOBEDO DO Ot Z99.81 DEPENDENCE ON SUPPLEMENTAL OXYGEN 01/19/2019 ZACK ESCOBEDO DO Ot E11.9 TYPE 2 DIABETES MELLITUS WITHOUT COMPLIC 01/19/2019 ZACK ESCOBEDO DO Ot E66.9 OBESITY, UNSPECIFIED 01/19/2019 ZACK ESCOBEDO DO Ot E78.5 HYPERLIPIDEMIA, UNSPECIFIED 01/19/2019 WILTON ESCOBEDO [...] DO Ot I25.10 ATHSCL HEART DISEASE OF [place] CORONARY 01/19/2019 ZACK ESCOBEDO DO Ot I25.2 OLD MYOCARDIAL INFARCTION 01/19/2019 GREGG DOLAN ZACK Ot I27.20 PULMONARY HYPERTENSION, UNSPECIFIED 01/19/2019 ZACK ESCOBEDO DO Ot I34.0 NONRHEUMATIC MITRAL (VALVE) INSUFFICIENC 01/19/2019 WILTON ESCOBEDO DOI Ot I48.0 PAROXYSMAL ATRIAL FIBRILLATION 01/19/2019 WILTON ESCOBEDO DOI Ot I50.31 ACUTE DIASTOLIC (CONGESTIVE) HEART FAILU 01/19/2019 ZACK ESCOBEDO DO Ot J44.1 CHRONIC OBSTRUCTIVE PULMONARY DISEASE W 01/19/2019 ZACK ESCOBEDO DO Ot J96.01 ACUTE RESPIRATORY FAILURE WITH HYPOXIA 01/19/2019 ZACK ESCOBEDO DO Ot K21.9 GASTRO-ESOPHAGEAL REFLUX DISEASE WITHOUT 01/19/2019 WILTON ESCOBEDO DOI Ot N17.9 ACUTE KIDNEY FAILURE, UNSPECIFIED 01/19/2019 ZACK ESCBOEDO DO Ot N18.9 CHRONIC KIDNEY DISEASE, UNSPECIFIED 01/19/2019 ZACK ESCOBEDO DO Ot Z68.41 BODY MASS INDEX (BMI) 40.0-44.9, ADULT 01/19/2019 ZACK ESCOBEDO DO Ot Z79.01 ASSISTED (CURRENT) USE OF ANTICOAGULANT 01/19/2019 ZACK ESCOBEDO DO Ot Z79.82 ASSISTED (CURRENT) USE OF ASPIRIN 01/19/2019 ZACK ESCOBEDO DO Ot Z87.89 1 PERSONAL HISTORY OF NICOTINE DEPENDENCE 01/19/2019 ZACK ESCOBEDO DO Ot Z91.19 PATIENT'S NONCOMPLIANCE W [facility] 01/19/2019 ZACK ESCOBEDO DO Ot Z95.5 PRESENCE OF CORONARY ANGIOPLASTY IMPLANT 01/19/2019 ZACK ESCOBEDO DO Ot Z99.81 DEPENDENCE ON SUPPLEMENTAL OXYGEN 01/19/2019 ZACK ESCOBEDO DO Ot E11.9 TYPE 2 DIABETES MELLITUS WITHOUT COMPLIC 01/19/2019 ZACK ESCOBEDO DO Ot E66.9 OBESITY, UNSPECIFIED 01/19/2019 ZACK ESCOBEDO DO Ot E78.5 HYPERLIPIDEMIA, UNSPECIFIED 01/19/2019 WILTON ESCOBEDO [...] DOI Ot I25.10 ATHSCL HEART DISEASE OF [place] CORONARY 01/19/2019 GREGG DOLAN ZACK Ot I25.2 OLD MYOCARDIAL INFARCTION 01/19/2019 WILTON ESCOBEDO DOI Ot I27.20 PULMONARY HYPERTENSION, UNSPECIFIED 01/19/2019 WILTON ESCOBEDO DOI Ot I34.0 NONRHEUMATIC MITRAL (VALVE) INSUFFICIENC 01/19/2019 WILTON ESCOBEDO DOI Ot I48.0 PAROXYSMAL ATRIAL FIBRILLATION 01/19/2019 WILTON [...] ADULT 01/19/2019 ZACK ESCOBEDO DO Ot Z79.01 RADIATION ONCOLOGY THERAPIST (CURRENT) USE OF ANTICOAGULANT 01/19/2019 ZACK ESCOBEDO DO Ot Z79.82 RADIATION ONCOLOGY THERAPIST (CURRENT) USE OF ASPIRIN 01/19/2019 WILTON ESCOBEDO DOI Ot Z87.89 1 PERSONAL HISTORY OF NICOTINE DEPENDENCE 01/19/2019 ZACK ESCOBEDO DO Ot Z91.19 PATIENT'S NONCOMPLIANCE W [facility] 01/19/2019 ZACK ESCOBEDO DO Ot Z95.5 PRESENCE OF CORONARY ANGIOPLASTY IMPLANT 01/19/2019 WILTON ESCOBEDO DOI Ot Z99.81 DEPENDENCE ON SUPPLEMENTAL OXYGEN 01/19/2019 ZACK ESCOBEDO DO Ot E11.9 TYPE 2 DIABETES MELLITUS WITHOUT COMPLIC 01/19/2019 WILTON ESCOBEDO DOI Ot E66.9 OBESITY, UNSPECIFIED 01/19/2019 WILTON ESCOBEDO DOI Ot E78.5 HYPERLIPIDEMIA, UNSPECIFIED 01/19/2019 WILTON ESCOBEDO DOI Ot E83.39 OTHER DISORDERS OF PHOSPHORUS METABOLISM 01/19/2019 WILTON ESCOBEDO DOI Ot G47.33 OBSTRUCTIVE SLEEP APNEA (ADULT) (PEDIATR 01/19/2019 WLITON ESCOBEDO DOI Ot G89.29 OTHER CHRONIC PAIN 01/19/2019 ZACK ESCOBEDO DO Ot I13.0 HYP HRT CHR [place] DIS W HRT FAIL AND ST 01/19/2019 ZACK ESCOBEDO DO Ot I21.A1 MYOCARDIAL INFARCTION TYPE 2 01/19/2019 WILTON ESCOBEDO DOI Ot I25.10 ATHSCL HEART DISEASE OF [place] CORONARY 01/19/2019 WILTON ESCOBEDO DOI Ot I25.2 OLD MYOCARDIAL INFARCTION 01/19/2019 WILTON [...] ADULT 01/19/2019 ZACK ESCOBEDO DO Ot Z79.01 RADIATION ONCOLOGY THERAPIST (CURRENT) USE OF ANTICOAGULANT 01/19/2019 WILTON ESCOBEDO DOI Ot Z79.82 ASSISTED (CURRENT) USE OF ASPIRIN 01/19/2019 ZACK ESCOBEDO DO Ot Z87.89 1 PERSONAL HISTORY OF NICOTINE DEPENDENCE 01/19/2019 ZACK ESCOBEDO DO Ot Z91.19 PATIENT'S NONCOMPLIANCE W [facility] 01/19/2019 ZACK ESCOBEDO DO Ot [...] DOI Ot I25.10 ATHSCL HEART DISEASE OF [place] CORONARY 01/19/2019 GREGG DOLAN ZACK Ot I25.2 OLD MYOCARDIAL INFARCTION 01/19/2019 GREGG DOLAN ZACK Ot I27.20 PULMONARY HYPERTENSION, UNSPECIFIED 01/19/2019 GREGG DOLAN ZACK Ot I34.0 NONRHEUMATIC MITRAL (VALVE) INSUFFICIENC 01/19/2019 GREGG DOLAN ZACK Ot I48.0 PAROXYSMAL ATRIAL FIBRILLATION 01/19/2019 GREGG DOLAN ZACK Ot I50.31 ACUTE DIASTOLIC (CONGESTIVE) HEART FAILU 01/19/2019 GREGG DOLAN ZACK Ot J44.1 CHRONIC OBSTRUCTIVE PULMONARY DISEASE W 01/19/2019 GREGG DOLAN ZACK Ot J96.01 ACUTE RESPIRATORY FAILURE WITH HYPOXIA 01/19/2019 GREGG DOLAN ZACK Ot K21.9 GASTRO-ESOPHAGEAL REFLUX DISEASE WITHOUT 01/19/2019 GREGG DOLAN ZACK Ot N17.9 ACUTE KIDNEY FAILURE, UNSPECIFIED 01/19/2019 GREGG DOLAN ZACK Ot N18.9 CHRONIC KIDNEY DISEASE, UNSPECIFIED 01/19/2019 GREGG DOLAN ZACK Ot Z68.41 BODY MASS INDEX (BMI) 40.0-44.9, ADULT 01/19/2019 GREGG DOLAN ZACK Ot Z79.01 RADIATION ONCOLOGY THERAPIST (CURRENT) USE OF ANTICOAGULANT 01/19/2019 GREGG DOLAN ZACK Ot Z79.82 ASSISTED (CURRENT) USE OF ASPIRIN 01/19/2019 WILTON ESCOBEDO DOI Ot Z87.89 1 PERSONAL HISTORY OF NICOTINE DEPENDENCE 01/19/2019 GREGG DOLAN ZACK Ot Z91.19 PATIENT'S NONCOMPLIANCE W [facility] 01/19/2019 ZACK ESCOBEDO DO Ot Z95.5 PRESENCE OF CORONARY ANGIOPLASTY IMPLANT 01/19/2019 ZACK ESCOBEDO DO Ot Z99.81 DEPENDENCE ON SUPPLEMENTAL OXYGEN 01/19/2019 GREGG DOLAN ZACK Ot E11.9 TYPE 2 DIABETES MELLITUS WITHOUT COMPLIC 01/19/2019 GREGG DOALN ZACK Ot E66.9 OBESITY, UNSPECIFIED 01/19/2019 GREGG DOLAN ZACK Ot E78.5 HYPERLIPIDEMIA, UNSPECIFIED 01/19/2019 ZACK ESCOBEDO [...] DOI Ot I25.10 ATHSCL HEART DISEASE OF [place] CORONARY 01/19/2019 WILTON ESCOBEDO DOI Ot I25.2 OLD MYOCARDIAL INFARCTION 01/19/2019 WILTON ESCOBEDO DOI Ot I27.20 PULMONARY HYPERTENSION, UNSPECIFIED 01/19/2019 WILTON ESCOBEDO DOI Ot I34.0 NONRHEUMATIC MITRAL (VALVE) INSUFFICIENC 01/19/2019 WILTON ESCOBEDO DOI Ot I48.0 PAROXYSMAL ATRIAL FIBRILLATION 01/19/2019 WILTON [...] ADULT 01/19/2019 ZACK ESCOBEDO DO Ot Z79.01 ASSISTED (CURRENT) USE OF ANTICOAGULANT 01/19/2019 ZACK ESCOBEDO DO Ot Z79.82 RADIATION ONCOLOGY THERAPIST (CURRENT) USE OF ASPIRIN 01/19/2019 ZACK ESCOBEDO DO Ot Z87.89 1 PERSONAL HISTORY OF NICOTINE DEPENDENCE 01/19/2019 ZACK ESCOBEDO DO Ot Z91.19 PATIENT'S NONCOMPLIANCE W [facility] 01/19/2019 ZACK ESCOBEDO DO Ot Z95.5 PRESENCE OF CORONARY ANGIOPLASTY IMPLANT 01/19/2019 WILTON ESCOBEDO DOI Ot Z99.81 DEPENDENCE ON SUPPLEMENTAL OXYGEN 01/28/2019 WILTON ESCOBEDO DOI Ot E11.21 TYPE 2 DIABETES MELLITUS WITH DIABETIC N 01/28/2019 WILTON ESCOBEDO DOI Ot E11.65 TYPE 2 DIABETES MELLITUS WITH HYPERGLYCE 01/28/2019 GREGG DOLAN ZACK Ot E66.9 OBESITY, UNSPECIFIED 01/28/2019 WILTON ESCOBEDO DOI Ot E78.5 HYPERLIPIDEMIA, UNSPECIFIED 01/28/2019 GREGG DOLAN ZACK Ot E88.81 METABOLIC SYNDROME 01/28/2019 GREGG DOLAN ZACK Ot F32.9 MAJOR DEPRESSIVE DISORDER, SINGLE EPISOD 01/28/2019 WILTON ESCOBEDO DOI Ot F41.9 ANXIETY DISORDER, UNSPECIFIED 01/28/2019 WILTON ESCOBEDO DOI Ot G47.33 OBSTRUCTIVE SLEEP APNEA (ADULT) (PEDIATR 01/28/2019 GREGG DOLAN ZACK Ot G72.89 OTHER SPECIFIED MYOPATHIES 01/28/2019 WILTON ESCOBEDO DOI Ot I12.9 HYPERTENSIVE CHRONIC KIDNEY DISEASE W ST 01/28/2019 GREGG DOLAN ZACK Ot I21.A1 MYOCARDIAL INFARCTION TYPE 2 01/28/2019 GREGG DOLAN ZACK Ot I25.10 ATHSCL HEART DISEASE OF [place] CORONARY 01/28/2019 GREGG DOLAN ZACK Ot I48.0 PAROXYSMAL ATRIAL FIBRILLATION 01/28/2019 GREGG DOLAN ZACK Ot I49.5 SICK SINUS SYNDROME 01/28/2019 WILTON ESCOBEDO DOI Ot J44.9 CHRONIC OBSTRUCTIVE PULMONARY DISEASE, U 01/28/2019 WILTON ESCOBEDO DOI Ot K21.9 GASTRO-ESOPHAGEAL REFLUX DISEASE WITHOUT 01/28/2019 GREGG DOLAN ZACK Ot K59.09 OTHER CONSTIPATION 01/28/2019 GREGG DOLAN ZACK Ot M16.11 UNILATERAL PRIMARY OSTEOARTHRITIS, RIGHT 01/28/2019 GREGG DOLAN ZACK Ot M51.37 OTHER INTERVERTEBRAL DISC DEGENERATION, 01/28/2019 WILTON ESCOBEDO DOI Ot M70.61 TROCHANTERIC BURSITIS, RIGHT HIP 01/28/2019 WILTON ESCOBEDO DOI Ot N18.9 CHRONIC KIDNEY DISEASE, UNSPECIFIED 01/28/2019 ZACK ESCOBEDO DO Ot T38.0X 5A ADVERSE EFFECT OF GLUCOCORT/SYNTH ANALOG 01/28/2019 ZACK ESCOBEDO DO Ot T82.85 5D STENOSIS OF CORONARY ARTERY STENT, SUBSE 01/28/2019 ZACK ESCOBEDO DO Ot Z68.37 BODY MASS INDEX (BMI) 37.0-37.9, ADULT 01/28/2019 ZACK ESCOBEDO DO Ot Z79.01 RADIATION ONCOLOGY THERAPIST (CURRENT) USE OF ANTICOAGULANT 01/28/2019 ZACK ESCOBEDO DO Ot Z79.4 RADIATION ONCOLOGY THERAPIST (CURRENT) USE OF INSULIN 01/28/2019 ZACK ESCOBEDO DO Ot Z86.71 1 PERSONAL HISTORY OF PULMONARY EMBOLISM 01/28/2019 ZACK ESCOBEDO DO Ot Z87.89 1 PERSONAL HISTORY OF NICOTINE DEPENDENCE 01/28/2019 ZACK ESCOBEDO DO Ot Z95.5 PRESENCE OF CORONARY ANGIOPLASTY IMPLANT 02/05/2019 ALEXA SOLIZ MD, Ot E11. 9 TYPE 2 DIABETES MELLITUS WITHOUT COMPLIC 02/05/2019 ALEXA SOLIZ MD, Ot E78. 00 PURE HYPERCHOLESTEROLEMIA, UNSPECIFIED 02/05/2019 ALEXA SOLIZ MD, Ot E78. 5 HYPERLIPIDEMIA, UNSPECIFIED 02/05/2019 ALEXA SOLIZ MD, Ot F41. 9 ANXIETY DISORDER, UNSPECIFIED 02/05/2019 ALEXA SOLIZ MD, Ot G47. 30 SLEEP APNEA, UNSPECIFIED 02/05/2019 ALEXA SOLIZ MD, Ot I10 ESSENTIAL (PRIMARY) HYPERTENSION 02/05/2019 ALEXA SOLIZ MD, Ot I25. 10 ATHSCL HEART DISEASE OF [place] CORONARY 02/05/2019 ALEXA SOLIZ MD, Ot I48. 91 UNSPECIFIED ATRIAL FIBRILLATION 02/05/2019 ALEXA SOLIZ MD, Ot I95. 89 OTHER HYPOTENSION 02/05/2019 ALEXA SOLIZ MD, Ot J44. 9 CHRONIC OBSTRUCTIVE PULMONARY DISEASE, U 02/05/2019 ALEXA SOLIZ MD, Ot K21. 9 GASTRO-ESOPHAGEAL REFLUX DISEASE WITHOUT 02/05/2019 ALEXA SOLIZ MD, Ot R00. 1 BRADYCARDIA, UNSPECIFIED 02/05/2019 ALEXA SOLIZ MD, Ot Z79. 01 RADIATION ONCOLOGY THERAPIST (CURRENT) USE OF ANTICOAGULANT 02/05/2019 ALEXA SOLIZ MD, Ot Z79. 4 ASSISTED (CURRENT) USE OF INSULIN 02/05/2019 ALEXA SOLIZ MD, Ot Z79. 82 ASSISTED (CURRENT) USE OF ASPIRIN 02/05/2019 ALEXA SOLIZ MD, Ot Z79.899 OTHER RADIATION ONCOLOGY THERAPIST (CURRENT) DRUG THERAPY 02/05/2019 ALEXA SOLIZ MD, [...] MD, Ot I10 ESSENTIAL (PRIMARY) HYPERTENSION 02/07/2019 LAEXA SOLIZ MD, Ot I25. 10 ATHSCL HEART DISEASE OF [place] CORONARY 02/07/2019 ALEXA SOLIZ MD, Ot I48. 91 UNSPECIFIED ATRIAL FIBRILLATION 02/07/2019 ALEXA SOLIZ MD, Ot I95. 89 OTHER HYPOTENSION 02/07/2019 ALEXA SOLIZ MD, Ot J44. 9 CHRONIC OBSTRUCTIVE PULMONARY DISEASE, U 02/07/2019 ALEXA SOLIZ MD, Ot K21. 9 GASTRO-ESOPHAGEAL REFLUX DISEASE WITHOUT 02/07/2019 ALEXA SOLIZ MD, Ot R00. 1 BRADYCARDIA, UNSPECIFIED 02/07/2019 ALEXA SOLIZ MD, Ot Z79. 01 ASSISTED (CURRENT) USE OF ANTICOAGULANT 02/07/2019 ALEXA SOLIZ MD, Ot Z79. 4 RADIATION ONCOLOGY THERAPIST (CURRENT) USE OF INSULIN 02/07/2019 ALEXA SOLIZ MD, Ot Z79. 82 RADIATION ONCOLOGY THERAPIST (CURRENT) USE OF ASPIRIN 02/07/2019 ALEXA SOLIZ [...] MD, Ot I10 ESSENTIAL (PRIMARY) HYPERTENSION 02/13/2019 AELXA SOLIZ MD, Ot I25. 10 ATHSCL HEART DISEASE OF [place] CORONARY 02/13/2019 ALEXA SOLIZ MD, Ot I48. 91 UNSPECIFIED ATRIAL FIBRILLATION 02/13/2019 ALEXA SOLIZ MD, Ot I95. 89 OTHER HYPOTENSION 02/13/2019 ALEXA SOLIZ MD, Ot J44. 9 CHRONIC OBSTRUCTIVE PULMONARY DISEASE, U 02/13/2019 ALEXA SOLIZ MD, Ot K21. 9 GASTRO-ESOPHAGEAL REFLUX DISEASE WITHOUT 02/13/2019 ALEXA SOLIZ MD, Ot R00. 1 BRADYCARDIA, UNSPECIFIED 02/13/2019 ALEXA SOLIZ MD, Ot Z79. 01 RADIATION ONCOLOGY THERAPIST (CURRENT) USE OF ANTICOAGULANT 02/13/2019 ALEXA SOLIZ MD, Ot Z79. 4 RADIATION ONCOLOGY THERAPIST (CURRENT) USE OF INSULIN 02/13/2019 ALEXA SOLIZ MD, Ot Z79. 82 ASSISTED (CURRENT) USE OF ASPIRIN 02/13/2019 ALEXA SOLIZ [...] Ot I25. 10 ATHSCL HEART DISEASE OF [place] CORONARY 02/15/2019 ALEXA SOLIZ MD, Ot I48. 91 UNSPECIFIED ATRIAL FIBRILLATION 02/15/2019 ALEXA SOLIZ MD, Ot I95. 89 OTHER HYPOTENSION 02/15/2019 ALEXA SOLIZ MD, Ot J44. 9 CHRONIC OBSTRUCTIVE PULMONARY DISEASE, U 02/15/2019 ALEXA SOLIZ MD, Ot K21. 9 GASTRO-ESOPHAGEAL REFLUX DISEASE WITHOUT 02/15/2019 ALEXA SOLIZ MD, Ot R00. 1 BRADYCARDIA, UNSPECIFIED 02/15/2019 ALEXA SOLIZ MD, Ot Z79. 01 ASSISTED (CURRENT) USE OF ANTICOAGULANT 02/15/2019 ALEXA SOLIZ MD, Ot Z79. 4 RADIATION ONCOLOGY THERAPIST (CURRENT) USE OF INSULIN 02/15/2019 ALEXA SOLIZ MD, Ot Z79. 82 ASSISTED (CURRENT) USE OF ASPIRIN 02/15/2019 ALEXA SOLIZ MD, Ot Z79.899 OTHER RADIATION ONCOLOGY THERAPIST (CURRENT) DRUG THERAPY 02/15/2019 ALEXA SOLIZ MD, [...] Ot I25. 10 ATHSCL HEART DISEASE OF [place] CORONARY 02/24/2019 ALEXA SOLIZ MD, Ot I48. 91 UNSPECIFIED ATRIAL FIBRILLATION 02/24/2019 ALEXA SOLIZ MD, Ot I95. 89 OTHER HYPOTENSION 02/24/2019 ALEXA SOLIZ MD, Ot J44. 9 CHRONIC OBSTRUCTIVE PULMONARY DISEASE, U 02/24/2019 ALEXA SOLIZ MD, Ot K21. 9 GASTRO-ESOPHAGEAL REFLUX DISEASE WITHOUT 02/24/2019 ALEXA SOLIZ MD, Ot R00. 1 BRADYCARDIA, UNSPECIFIED 02/24/2019 ALEXA SOLIZ MD, Ot Z79. 01 RADIATION ONCOLOGY THERAPIST (CURRENT) USE OF ANTICOAGULANT 02/24/2019 ALEXA SOLIZ MD, Ot Z79. 4 RADIATION ONCOLOGY THERAPIST (CURRENT) USE OF INSULIN 02/24/2019 ALEXA SOLIZ MD, Ot Z79. 82 RADIATION ONCOLOGY THERAPIST (CURRENT) USE OF ASPIRIN 02/24/2019 ALEXA SOLIZ MD, Ot Z79.899 OTHER ASSISTED (CURRENT) DRUG THERAPY 02/24/2019 ALEXA SOLIZ MD, Ot Z82. 49 FAMILY HX OF ISCHEM HEART DIS AND OTH DI 02/24/2019 ALEXA SOLIZ MD, Ot Z86.711 PERSONAL HISTORY OF PULMONARY EMBOLISM 02/24/2019 ALEXA SOLIZ MD, Ot Z87.891 PERSONAL HISTORY OF NICOTINE DEPENDENCE 02/24/2019 ALEXA SOLIZ MD, Ot Z90.710 ACQUIRED ABSENCE OF BOTH CERVIX AND UTER 02/24/2019 ALEXA SOLIZ MD, Ot Z95. 5 PRESENCE OF CORONARY ANGIOPLASTY IMPLANT 02/24/2019 ALEXA SOLIZ MD, Ot Z99. 89 DEPENDENCE ON OTHER ENABLING MACHINES AN 02/24/2019 GREGG DO ZACK Ot D64.9 ANEMIA, UNSPECIFIED 02/24/2019 GREGG [...] ZACK Ot I25.10 ATHSCL HEART DISEASE OF [place] CORONARY 02/24/2019 GREGG DOLAN ZACK Ot I48.0 PAROXYSMAL ATRIAL FIBRILLATION 02/24/2019 GREGG DOLAN ZACK Ot I49.5 SICK SINUS SYNDROME 02/24/2019 GREGG DOLAN ZACK Ot I65.23 OCCLUSION AND STENOSIS OF BILATERAL LEAL 02/24/2019 GREGG DOLAN ZACK Ot J44.9 CHRONIC OBSTRUCTIVE PULMONARY DISEASE, U 02/24/2019 GREGG DOLAN ZACK Ot K21.9 GASTRO-ESOPHAGEAL REFLUX DISEASE WITHOUT 02/24/2019 GREGG DO ZACK Ot M19.91 PRIMARY OSTEOARTHRITIS, UNSPECIFIED SITE 02/24/2019 GREGG DOLAN ZACK Ot 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 10 ATHSCL HEART DISEASE OF [place] CORONARY 02/27/2019 ALEXA SOLIZ MD, Ot I48. 91 UNSPECIFIED ATRIAL FIBRILLATION 02/27/2019 ALEXA SOLIZ MD, Ot I95. 89 OTHER HYPOTENSION 02/27/2019 ALEXA SOLIZ MD, Ot J44. 9 CHRONIC OBSTRUCTIVE PULMONARY DISEASE, U 02/27/2019 ALEXA SOLIZ MD, Ot K21. 9 GASTRO-ESOPHAGEAL REFLUX DISEASE WITHOUT 02/27/2019 ALEXA SOLIZ MD, Ot R00. 1 BRADYCARDIA, UNSPECIFIED 02/27/2019 ALEXA SOLIZ MD, Ot Z79. 01 ASSISTED (CURRENT) USE OF ANTICOAGULANT 02/27/2019 ALEXA SOLIZ MD, Ot Z79. 4 ASSISTED (CURRENT) USE OF INSULIN 02/27/2019 ALEXA SOLIZ MD, Ot Z79. 82 RADIATION ONCOLOGY THERAPIST (CURRENT) USE OF ASPIRIN 02/27/2019 ALEXA SOLIZ MD, Ot Z79.899 OTHER ASSISTED (CURRENT) DRUG THERAPY 02/27/2019 ALEXA SOLIZ MD, [...] ILANA SANTAMARIA MD Ot I70.2 13 ATHSCL [place] ARTERIES OF EXTRM W INTRMT 03/01/2019 ILANA SANTAMARIA MD Ot I70.2 13 ATHSCL [place] ARTERIES OF EXTRM W INTRMT 03/01/2019 VAN LAWRENCE APRN Ot V76.12 OTH SCREEN MAMMO-MALIGN NEOPLASM OF RUTH ANN 03/01/2019 BOOM MILLER MD Ot E78. 5 HYPERLIPIDEMIA, UNSPECIFIED 03/01/2019 BOOM MLILER MD Ot I10 ESSENTIAL (PRIMARY) HYPERTENSION 03/01/2019 BOOM MILLER MD Ot I25. 10 ATHSCL HEART DISEASE OF [place] CORONARY 03/01/2019 BOOM MILLER MD Ot R07. 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 10 ATHSCL HEART DISEASE OF [place] CORONARY 03/01/2019 BOOM MILLER MD Ot I48. 91 UNSPECIFIED ATRIAL FIBRILLATION 03/01/2019 BOOM MILLER MD Ot R06. 83 SNORING 03/01/2019 BOOM MILLER MD Ot Z68. 35 BODY MASS INDEX (BMI) 35.0-35.9, ADULT 03/01/2019 BOOM MILLER MD Ot Z79. 4 RADIATION ONCOLOGY THERAPIST (CURRENT) USE OF INSULIN 03/01/2019 BOOM MILLER MD Ot Z79. 82 ASSISTED (CURRENT) USE OF ASPIRIN 03/01/2019 BOOM MILLER MD Ot Z79.899 OTHER RADIATION ONCOLOGY THERAPIST (CURRENT) DRUG THERAPY 03/01/2019 BOOM MILLER MD Ot Z95. 5 PRESENCE OF CORONARY ANGIOPLASTY IMPLANT 03/01/2019 BOOM MILLER MD Ot I48. 0 PAROXYSMAL ATRIAL FIBRILLATION 03/01/2019 BOOM MILLER MD Ot Z51. 81 ENCOUNTER FOR THERAPEUTIC DRUG LEVEL MON 03/01/2019 BOOM MILLER MD, Ot I48. 0 PAROXYSMAL ATRIAL FIBRILLATION 03/01/2019 BOOM MILLER MD, Ot Z79. 01 RADIATION ONCOLOGY THERAPIST (CURRENT) USE OF ANTICOAGULANT 03/01/2019 ILANA SANTAMARIA MD Ot I70.2 13 ATHSCL [place] ARTERIES OF EXTR W [facility] 03/06/2019 ILANA SANTAMARIA MD Ot I70.2 13 ATHSCL [place] ARTERIES OF [facility] 03/10/2019 ILANA SANTAMARIA MD Ot I70.9 0 UNSPECIFIED ATHEROSCLEROSIS 03/23/2019 ILANA SANTAMARIA MD Ot I70.2 13 ATHSCL [place] ARTERIES OF EXTRM W [facility] 03/28/2019 ILANA SANTAMARIA MD Ot I70.9 0 UNSPECIFIED ATHEROSCLEROSIS 03/31/2019 ILANA SANTAMARIA MD Ot I70.9 0 UNSPECIFIED ATHEROSCLEROSIS 03/31/2019 ILANA SANTAMARIA MD Ot I70.9 0 UNSPECIFIED ATHEROSCLEROSIS 04/03/2019 ILANA SANTAMARIA MD Ot I70.9 0 UNSPECIFIED ATHEROSCLEROSIS 04/10/2019 ILANA SANTAMARIA MD Ot I70.9 0 UNSPECIFIED ATHEROSCLEROSIS 04/19/2019 LETTY WILLAMS APRN Ot G47.33 OBSTRUCTIVE SLEEP APNEA (ADULT) (PEDIATR 04/19/2019 IMER, LETTY E BUSINESS TRAINER Ot J30.9 ALLERGIC RHINITIS, UNSPECIFIED 04/19/2019 IMER, LETTY E BUSINESS TRAINER Ot J44.9 CHRONIC OBSTRUCTIVE PULMONARY DISEASE, U 04/19/2019 IMER, LETTY E BUSINESS TRAINER Ot J81.1 CHRONIC PULMONARY EDEMA 04/19/2019 IMER, LETTY E BUSINESS TRAINER Ot K74.60 UNSPECIFIED CIRRHOSIS OF LIVER 04/19/2019 IMER, LETTY E BUSINESS TRAINER Ot R16.1 SPLENOMEGALY, NOT ELSEWHERE CLASSIFIED 04/19/2019 IMER, LETTY E BUSINESS TRAINER Ot R18.8 OTHER ASCITES 04/19/2019 IMER, LETTY E BUSINESS TRAINER Ot Z95.818 PRESENCE OF OTHER CARDIAC IMPLANTS AND G 05/02/2019 ILANA SANTAMARIA MD Ot I70.9 0 UNSPECIFIED ATHEROSCLEROSIS 05/16/2019 IMER, LETTY E BUSINESS TRAINER Ot G47.33 OBSTRUCTIVE SLEEP APNEA (ADULT) (PEDIATR 05/16/2019 IMER, LETTY E BUSINESS TRAINER Ot J30.9 ALLERGIC RHINITIS, UNSPECIFIED 05/16/2019 IMER, LETTY E BUSINESS TRAINER Ot J44.9 CHRONIC OBSTRUCTIVE PULMONARY DISEASE, U 05/16/2019 IMER, LETTY E BUSINESS TRAINER Ot J81.1 CHRONIC PULMONARY EDEMA 05/16/2019 IMER, LETTY E BUSINESS TRAINER Ot K74.60 UNSPECIFIED CIRRHOSIS OF LIVER 05/16/2019 IMER, LETTY E BUSINESS TRAINER Ot R16.1 SPLENOMEGALY, NOT ELSEWHERE CLASSIFIED 05/16/2019 IMER, LETTY E BUSINESS TRAINER Ot R18.8 OTHER ASCITES 05/16/2019 IMER, LETTY E BUSINESS TRAINER Ot Z95.818 PRESENCE OF OTHER CARDIAC IMPLANTS AND G 06/19/2019 BOOM MILLER MD Ot E78. 5 HYPERLIPIDEMIA, UNSPECIFIED 06/19/2019 BOOM MILLER MD Ot I10 ESSENTIAL (PRIMARY) HYPERTENSION 06/19/2019 BOOM MILLER MD Ot I25. 10 ATHSCL HEART DISEASE OF [place] CORONARY 06/19/2019 BOOM MILLER MD Ot R07. 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 1 PURE HYPERGLYCERIDEMIA 06/19/2019 BOOM MILLER MD Ot E78. 2 MIXED HYPERLIPIDEMIA 06/19/2019 BOOM MILLER MD Ot I11. 0 HYPERTENSIVE HEART DISEASE WITH HEART FA 06/19/2019 BOOM MILLER MD Ot I34. 0 NONRHEUMATIC MITRAL (VALVE) INSUFFICIENC 06/19/2019 BOOM MILLER MD Ot I35. 8 OTHER NONRHEUMATIC AORTIC VALVE DISORDER 06/19/2019 BOOM MILLER MD Ot I51. 7 CARDIOMEGALY 06/19/2019 BOOM MILLER MD Ot R07. 89 OTHER CHEST PAIN 06/19/2019 BOOM MILLER MD Ot E78. 1 PURE HYPERGLYCERIDEMIA 06/19/2019 BOOM MILLER MD Ot E78. 2 MIXED HYPERLIPIDEMIA 06/19/2019 BOOM MILLER MD Ot I11. 9 HYPERTENSIVE HEART DISEASE WITHOUT HEART 06/19/2019 BOOM MILLER MD Ot I34. 0 NONRHEUMATIC MITRAL (VALVE) INSUFFICIENC 06/19/2019 BOOM MILLER MD Ot I35. 8 OTHER NONRHEUMATIC AORTIC VALVE DISORDER 06/19/2019 BOOM MILLER MD Ot R07. 89 OTHER CHEST PAIN 06/19/2019 BOOM MILLER MD Ot E11. 9 TYPE 2 DIABETES MELLITUS WITHOUT COMPLIC 06/19/2019 BOOM MILLER MD Ot E66. 9 OBESITY, UNSPECIFIED 06/19/2019 BOOM MILLER MD Ot E78. 5 HYPERLIPIDEMIA, UNSPECIFIED 06/19/2019 BOOM MILLER MD Ot G47. 10 HYPERSOMNIA, UNSPECIFIED 06/19/2019 BOOM MILLER MD Ot G89. 29 OTHER CHRONIC PAIN 06/19/2019 BOOM MILLER MD Ot I10 ESSENTIAL (PRIMARY) HYPERTENSION 06/19/2019 BOOM MILLER MD Ot I25. 10 ATHSCL HEART DISEASE OF [place] CORONARY 06/19/2019 BOOM MILLER MD Ot I48. 91 UNSPECIFIED ATRIAL FIBRILLATION 06/19/2019 BOOM MILLER MD Ot R06. 83 SNORING 06/19/2019 BOOM MILLER MD Ot Z68. 35 BODY MASS INDEX (BMI) 35.0-35.9, ADULT 06/19/2019 BOOM MILLER MD Ot Z79. 4 ASSISTED (CURRENT) USE OF INSULIN 06/19/2019 BOOM MILLER MD Ot Z79. 82 ASSISTED (CURRENT) USE OF ASPIRIN 06/19/2019 BOOM MILLER MD, Ot Z79.899 OTHER RADIATION ONCOLOGY THERAPIST (CURRENT) DRUG THERAPY 06/19/2019 BOOM MILLER MD Ot Z95. 5 PRESENCE OF CORONARY ANGIOPLASTY IMPLANT 06/19/2019 BOOM MILLER MD Ot I48. 0 PAROXYSMAL ATRIAL FIBRILLATION 06/19/2019 BOOM MILLER MD Ot Z51. 81 ENCOUNTER FOR THERAPEUTIC DRUG LEVEL MON 06/19/2019 BOOM MILLER MD, Ot I48. 0 PAROXYSMAL ATRIAL FIBRILLATION 06/19/2019 BOOM MILLER MD, Ot Z79. 01 RADIATION ONCOLOGY THERAPIST (CURRENT) USE OF ANTICOAGULANT 06/19/2019 ILANA SANTAMARIA MD Ot I70.2 13 ATHSCL [place] ARTERIES OF EXTRM W INTRMT 06/19/2019 ILANA SANTAMARIA MD Ot I70.9 0 UNSPECIFIED ATHEROSCLEROSIS 06/19/2019 LETTY WILLAMS APRN Ot G47.33 OBSTRUCTIVE SLEEP APNEA (ADULT) (PEDIATR 06/19/2019 LETTY WILLAMS APRN Ot J30.9 ALLERGIC RHINITIS, UNSPECIFIED 06/19/2019 LETTY WILLAMS APRN Ot J44.9 CHRONIC OBSTRUCTIVE PULMONARY DISEASE, U 06/19/2019 LETTY WILLAMS APRN Ot J81.1 CHRONIC PULMONARY EDEMA 06/19/2019 LETTY WILLAMS APRN Ot K74.60 UNSPECIFIED CIRRHOSIS OF LIVER 06/19/2019 LETTY WILLAMS APRN Ot R16.1 SPLENOMEGALY, NOT ELSEWHERE CLASSIFIED 06/19/2019 LETTY WILLAMS BUSINESS TRAINER Ot R18.8 OTHER ASCITES 06/19/2019 LETTY WILLAMS BUSINESS TRAINER Ot Z95.818 PRESENCE OF OTHER CARDIAC IMPLANTS AND G 06/19/2019 ROSALIO MARAVILLA, ILANA French Ot I70.9 0 UNSPECIFIED ATHEROSCLEROSIS Procedures Code [...] 11/13/[address]/INFUSE PLATELET INHIBITOR 11/13/2011 90777 ROUT INE VENIPUNCTURE 01/14/2012 30557 A1C (IN-HOUSE) 01/14/2012 23885 CMP 01/15/2012 1011984 GF R CALC (RESULT ONLY) 01/15/2012 99342 ROUT INE VENIPUNCTURE 04/13/2012 68610 BMP 04/13/2012 6759687 GF R CALC (RESULT ONLY) 04/13/2012 61515 A1C (IN-HOUSE) 04/25/2012 35099 MICR O ALBUMIN-IN HOUSE 04/25/2012 84054 MICR OALBUMIN 04/25/2012 51190 HEPA TITIS PROFILE 05/24/2012 45077 ROUT INE VENIPUNCTURE 08/05/2012 66647 A1C (IN-HOUSE) 08/05/2012 88585 CMP 08/05/2012 42818 LIPI D PANEL 08/05/2012 [id number] GF R CALC (RESULT ONLY) 08/05/2012 70677 A1C (IN-HOUSE) 11/10/2012 74835 A1C (IN-HOUSE) 02/24/2013 52600 ROUT INE VENIPUNCTURE 05/30/2013 82435 EKG, TRACING (IN-HOUSE) 05/30/2013 52732 LIPI D PANEL 05/30/2013 28517 MAGNESIUM 05/30/2013 93650 CBC 05/30/2013 1796006 GF R CALC (RESULT ONLY) 05/30/2013 84600 CMP 05/30/2013 29033 TSH 05/30/2013 73208 NUCL EAR STRESS TESTING 07/28/2013 17353 ECHO 2D 07/28/2013 44234 MAMM OGRAM, SCREENING 10/23/2013 68975 XRAY CERVICAL SPINE, 2 OR 3 VIEWS 02/20/2014 32124 XRAY WRIST RIGHT COMP MIN 3 VIEWS 03/06/2014 19239 A1C (IN-HOUSE) 03/23/2014 14494 XRAY CERVICAL SPINE, 2 OR 3 VIEWS 04/02/2014 [id number] PE RFORMANCE OF CARDIAC PACING, CONTINUOU 07/21/2018 [id number] IN SERT OF MONITOR DEV INTO CHEST SUBCU/F 07/24/2018 Results Test Result Range Comp. Metabolic Panel (14) - 07/09/16 17 :06 Glucose, Serum 47 mg/dL 65-99 BUN 32 [...] IU/L 0-32 Microalb/Creat Ratio, Rand Ur - 7 17:06 Creatinine, Urine 31.9 mg/dL Not Estab. Microalbumin, Urine 143.3 ug/mL Not Esta b. Microalb/Creat Ratio 449.2 mg/g creat 0. 0-30.0 Automated blood complete blood count (he mogram) [...] 7-25 CREATININE 1.27 mg/dL 0.50-0.99 eGFR NON-AFR. SOMALI 46 mL/min/1.73m2 > OR = 60 eGFR [...] INFLUENZA A AND B ANTIGENS BY IA [facility] Complete blood count (CBC) with automate d [...] CORRECTED 9.5 mg/dL 8.5-10.1 TROPONIN T - 04/22/19 22:05 TROPONIN T 65 % <=10 PT [...] ng/mL <0.028 Automated blood complete blood count (he mogram) panel - 07/23/18 03:14 Blood leukocytes [...] A AND B ANTIGENS BY IA NRG Bacterial blood culture - 01/09/19 17:20 Bacterial blood culture NG NRG Arterial blood gas measurement - 9 17:27 [...] by glucometer (mas s/volume) 192 mg/dL 70-110 [id number] - 03/09/19 12:50 Serum or plasma urea nitrogen measurement (mass/volume ) 20 mg/dL 7-18 Serum or plasma creatinine measurement (mass/volume) 1.26 mg/dL 0.60-1.30 Serum or plasma urea nitrogen/creatinine mass ratio 16 NRG Serum or plasma creatinine measurement w ith calculation of estimated glomerular filtration rate 43 [facility] [id number] - 03/31/19 11:11 Serum or plasma urea nitrogen measurement (mass/volume ) 23 mg/dL 7-18 Serum or plasma creatinine measurement (mass/volume) 1.04 mg/dL 0.60-1.30 Serum or plasma urea nitrogen/creatinine mass ratio 22 NRG Serum or plasma creatinine measurement w ith calculation of estimated glomerular filtration rate 54 [facility] - 06/01/19 15:30 GLUCOSE 297 mg/dL 65-139 UREA NITROGEN (BUN) 21 mg/dL 7-25 CREATININE 1.25 mg/dL 0.50-0.99 eGFR NON-AFR. SOM[place]I 46 mL/min/1.73m2 > OR = 60 eGFR 54 mL/min/1.73m2 > OR = 60 BUN/CREATININE RATIO 17 (calc) 6-22 SODIUM 139 mmol/L 135-146 POTASSIUM 4.5 mmol/L 3.5-5.3 CHLORIDE 104 mmol/L 98-110 CARBON DIOXIDE 24 mmol/L 20-32 CALCIUM 9.8 mg/dL 8.6-10.4 PROTEIN, TOTAL 7.5 g/dL 6.1-8.1 ALBUMIN 4.2 g/dL 3.6-5.1 GLOBULIN 3.3 g/dL (calc) 1.9-3.7 ALBUMIN/GLOBULIN RATIO 1.3 (calc) 1.0-2. 5 BILIRUBIN, TOTAL 0.4 mg/dL 0.2-1.2 ALKALINE PHOSPHATASE 107 U/L 37-153 AST 70 U/L 10-35 ALT 56 U/L 6-29 CBC - 06/01/19 15:30 WHITE BLOOD CELL COUNT 4.9 Thousand/uL 3 .8-10.8 RED BLOOD CELL COUNT 4.17 Million/uL 3.8 0-5.10 HEMOGLOBIN 11.5 g/dL 11.7-15.5 HEMATOCRIT 35.9 % 35.0-45.0 MCV 86.1 fL 80.0-100.0 MCH 27.6 pg 27.0-33.0 MCHC 32.0 g/dL 32.0-36.0 RDW 12.7 % 11.0-15.0 PLATELET COUNT 123 Thousand/uL 140-400 MPV 10.9 fL 7.5-12.5 ABSOLUTE NEUTROPHILS 3455 cells/uL 1500- 7800 ABSOLUTE LYMPHOCYTES 1083 cells/uL 850-3 900 ABSOLUTE MONOCYTES 211 cells/uL 200-950 ABSOLUTE EOSINOPHILS 123 cells/uL 15-500 ABSOLUTE BASOPHILS 29 cells/uL 0-200 NEUTROPHILS 70.5 % NRG LYMPHOCYTES 22.1 % NRG MONOCYTES 4.3 % NRG EOSINOPHILS 2.5 % NRG BASOPHILS 0.6 % NRG Complete blood count (CBC) with automate d white blood cell (WBC) differential - 07/20/19 16:33 Blood leukocytes automated count (number/volume) 10.2 10*3/uL 4.3-11.0 Blood erythrocytes automated count (number/volume) 1.38 10*6/uL 4.35-5.85 Venous blood hemoglobin measurement (mass/volume) 3.5 g/dL 11.5-16.0 Blood hematocrit (volume fraction) 12 % 35-52 Automated erythrocyte mean corpuscular volume 90 [ foz_us] 80-99 Automated erythrocyte mean corpuscular h emoglobin (mass per erythrocyte) 25 pg 25-34 Automated erythrocyte mean corpuscular h emoglobin concentration measurement (mass/volume) 28 g/dL 32-36 Automated erythrocyte distribution width ratio 15. 8 % 10.0- 14.5 Automated blood platelet count (count/volume) 185 10*3/uL 130-400 Automated blood platelet mean volume measurement 10.9 [foz_us] 7.4-10.4 Automated blood neutrophils/100 leukocytes 83 % 42-75 Automated blood lymphocytes/100 leukocytes 10 % 12-44 Blood monocytes/100 leukocytes 5 % 0-12 Automated blood eosinophils/100 leukocytes 1 % 0-10 Automated blood basophils/100 leukocytes 0 % 0-10 Blood neutrophils automated count (number/volume) 8.5 10*3 1.8-7.8 Blood lymphocytes automated count (number/volume) 1.1 10*3 1.0-4.0 Blood monocytes automated count (number/volume) 0. 5 10*3 0.0-1.0 Automated eosinophil count 0.0 10*3/uL 0 .0-0.3 Automated blood basophil count (count/volume) 0.0 10*3/uL 0.0-0.1 Encounters ACCT No. Visit Date/Time Discharge Status Pt. Type Provider Facility Loc./Unit Complaint [id number] 07/10/2016 11:07:00 Document Registration [id number] 06/01/2014 14:09:00 06/01/2014 23:59: 59 CLS Outpatient GEE AMADO MD [id number] 04/30/2014 13:56:00 04/30/2014 23:59: 59 CLS Outpatient GEE AMADO MD [id number] 03/29/2014 12:12:00 03/29/2014 23:59: 59 CLS Outpatient GEE AMADO MD [id number] 03/23/2014 13:24:00 03/23/2014 23:59: 59 CLS Outpatient GEE AMADO MD [id number] 03/06/2014 13:45:00 03/06/2014 23:59: 59 CLS Outpatient LALITO TERRAZAS APRN [id number] 02/20/2014 14:47:00 02/20/2014 23:59: 59 CLS Outpatient GEE AMADO MD [id number] 02/06/2014 16:34:00 02/06/2014 23:59: 59 CLS Outpatient GEE AMADO MD [id number] 12/14/2013 00:00:00 12/14/2013 23:59: 59 CLS Outpatient IBAN DAVALOS DDS [id number] 10/23/2013 09:58:00 10/23/2013 23:59: 59 CLS Outpatient VAN LAWRENCE APRN [id number] 09/08/2013 09:39:00 09/08/2013 23:59: 59 CLS Outpatient JUSTICE WADE DO Efrem [id number] 07/28/2013 08:44:00 07/28/2013 23:59: 59 CLS Outpatient JUSTICE WADE DO [id number] 06/06/2013 15:27:00 06/06/2013 23:59: 59 CLS Outpatient WHITE DDSJOELLE [id number] 05/30/2013 09:38:00 05/30/2013 23:59: 59 CLS Outpatient GEE AMADO MD [id number] 04/25/2013 08:38:00 04/25/2013 23:59: 59 CLS Outpatient IBAN DAVALOS DDS [id number] 03/05/2013 00:00:00 03/05/2013 23:59: 59 CLS Outpatient JUSTICE WADE DO Efrem [id number] 02/24/2013 07:56:00 02/24/2013 23:59: 59 CLS Outpatient GEE AMADO MD [id number] 01/30/2013 08:00:00 01/30/2013 23:59: 59 CLS Outpatient IBAN DAVALOS DDS [id number] 12/19/2012 00:00:00 12/19/2012 23:59: 59 CLS Outpatient IBAN DAVALOS DDS [id number] 05/24/2012 09:24:00 05/24/2012 23:59: 59 CLS Outpatient GEE AMADO MD [id number] 04/25/2012 09:57:00 04/25/2012 23:59: 59 CLS Outpatient GEE AMADO MD [id number] 04/13/2012 09:38:00 04/13/2012 23:59: 59 [place] [id number] 01/14/2012 14:34:00 01/14/2012 23:59:5 9 CLS Outpatient GEE AMADO MD [id number] 11/23/2012 10:51:00 Document Registration [id number] 08/05/2012 09:03:00 Document Registration [id number] 04/17/2019 08:13:00 020 23:59:59 CLS Outpatient LETTY WILLAMS APRN [facility] RT DYSPNEA,ALLERGI C RHINITIS,COUGH,COPD [id number] 03/31/2019 11:00:00 020 23:59:59 CLS Outpatient ILANA SANTAMARIA MD [facility] RAD ATHEROSCLEROSIS [id number] 03/09/2019 12:45:00 23:59:59 CLS Outpatient ILANA SANTAMARIA MD [facility] LAB 440.70 [id number] 03/02/2019 12:20:00 23:59:59 CLS Outpatient ILANA SANTAMARIA MD [facility] RAD CLAUDICATION [id number] 02/17/2019 14:50:00 14:00:00 DIS Inpatient ESCOBEDO DO, ZACK V [facility] IRF ENCEPHALOPATHY [id number] 02/05/2019 08:41:00 10:25:00 DIS Emergency ALEXA SOLIZ MD [facility] ER FS PT FOUND UNRESPONSIVE [id number] 01/13/2019 11:15:00 13:35:00 DIS Inpatient ESCOBEDO DO, ZACK V [facility] IRF DEBILITY [id number] 01/10/2019 08:09:00 11:15:00 DIS Inpatient ESCOBEDO DO, ZACK V [facility] 4TH SOA, HEART FAILURE, DM2 , OBESITY, CKD [id number] 07/21/2018 19:26:00 14:57:00 DIS Inpatient Jaime GARSIA MD [facility] ICU AFIB,BRADYCARDIA,CARDIO GENIC SHOCK [id number] 07/11/2018 21:48:00 02:40:00 DIS Emergency MICHAEL DE LA GARZA MD [facility] ER FS FEVER,SOB [id number] 05/31/2018 00:10:00 23:59:59 CLS Preadmit BOOM MILLER MD [facility] LAB ENCOUNTER FOR MONITORIN G COUMADIN THERAPY [id number] 03/29/2018 12:33:00 00:01:00 DIS Outpatient BOOM MILLER MD [facility] LAB ENCOUNTER FOR MONITORIN G COUMADIN THERAPY [id number] 03/09/2018 08:29:00 018 17:05:00 DIS Outpatient BOOM MILLER MD [facility] CATH CP,CAD,PAF,HTN [id number] 02/05/2018 16:36:00 018 23:59:59 CLS Outpatient BOOM MILLER MD [facility] LAB PT/INR LAB [id number] 09/01/2017 11:42:00 018 23:59:59 CLS Preadmit INGRIS MARAVILLA, GEE Farrar [facility] RAD MEDICARE ANNUAL WELLNES S VISIT,INITIAL [id number] 06/28/2017 00:42:00 018 23:59:59 CLS Preadmit BOOM MILLER MD [facility] LAB I48.91 [id number] 06/15/2017 10:55:00 018 00:01:00 DIS Outpatient BOOM MILLER MD [facility] LAB I48.91 [id number] 04/03/2017 19:54:00 018 07:02:00 DIS Outpatient BOOM MILLER MD [facility] SLEEP G47.33 OBSTRUCTIVE SLEE P APNEA [id number] 03/24/2017 08:12:00 018 23:59:59 CLS Outpatient BOOM MILLER MD [facility] CATH ATRIAL FIBRILLATION [id number] 03/05/2017 08:13:00 017 13:30:00 DIS Outpatient BOOM MILLER MD [facility] CATH ABN STRESS TEST, CAD, H TN [id number] 03/01/2017 07:44:00 017 23:59:59 CLS Outpatient BOOM MILLER MD [facility] CARD AORTIC VALVE SCLEROSIS [id number] 02/22/2017 11:38:00 23:59:59 CLS Outpatient BOOM MILLER MD [facility] CARD I35.8 AORTIC VALVE SCLE ROSIS [id number] 09/11/2015 07:51:00 016 23:59:59 CLS Outpatient ILANA SANTAMARIA MD [facility] RAD STENOSIS [id number] 08/09/2015 17:28:00 016 23:59:59 CLS Outpatient XANDER ESQUIVEL MD [facility] RAD CERVICAL RADICULOPATHY [id number] 03/13/2015 07:10:00 015 14:20:00 DIS Outpatient BOOM MILLER MD [facility] CATH HTN,HLP,CAD,CP [id number] 02/27/2015 11:59:00 015 23:59:59 CLS Outpatient BOOM MILLER MD [facility] CARD HTN,HLD,CPS [id number] 10/31/2013 10:27:00 014 23:59:59 CLS Outpatient VNA LAWRENCE BUSINESS TRAINER [facility] RAD SCREENING [id number] 08/28/2013 08:36:00 014 17:20:00 DIS Outpatient BOOM MILLER MD [facility] CATH CAD,CP,HLP,HTN,DM [id number] 08/18/2013 12:27:00 014 23:59:59 CLS Outpatient HELENE COTTO [facility] CARD CAD,CP,HLP, HTN,DM [id number] 10/26/2012 12:11:00 013 14:26:00 DIS Emergency CURLY MARAVILLA, RK Phillip [facility] ER ELEVATED BP [id number] 07/20/2019 16:48:00 Document Registration [id number] 07/19/2019 17:18:[address] Outpatient ENMA PETERS BUSINESS TRAINER [facility] RAD FS POSS PHENOMENA [id number] 08/07/2015 09:49:00 Document Registration [id number] 11/13/2011 14:00:00 Document Registration [id number] 06/01/2019 15:00:00 06/01/2019 23:59: 59 [facility] Outpatient INGRIS MARAVILLA, GEE [facility] [id number] 06/01/2019 15:00:00 Document Registration [id number] 08/29/2018 15:45:00 Document Registration [id number] 08/18/2018 09:00:00 Document Registration [id number] 01/17/2018 13:40:00 Document Registration
[2019-07-20] MEDS ORDERED: NS IV 500 ML 500 ML ONE (17:32)
--- NOTE | 2019-07-20 17:32 | Diagnostic Imaging Report ---
PROCEDURE: CT head and maxillofacial without contrast. TECHNIQUE: Multiple contiguous axial images were obtained through the head and facial bones without the use of intravenous contrast. Auto Exposure Controls were utilized during the CT exam to meet ALARA standards for radiation dose reduction. INDICATION: Syncope, swelling, bruising right periorbital. COMPARISON: No priors for relevant comparison. HEAD: There is no intracranial hemorrhage. There is no hydrocephalus. Some acuity indeterminate white matter hypodensities bilaterally greater right, likely the sequelae of chronic small vessel disease. There is background chronic-appearing atherosclerotic vascular calcifications. No evidence for sulcal effacement or cortical edema. The basilar cisterns are patent. There is a right-sided preseptal orbital soft tissue swelling and opacification of right-sided ethmoid air cells and fluid in the right maxillary sinus. There is no calvarial fracture. CT FACIAL BONES: There is a depressed fracture of the medial right orbit at the level of the lamina papyracea. There is some associated likely hemorrhagic thickening of the right medial rectus muscle. There is no associated proptosis. There is a right preseptal and periorbital soft tissue swelling. No dislocation of the lenses. The globe morphologies and densities appeared unremarkable. The orbital floors were intact. There is hyperdense a presumed hemorrhagic opacification of multiple right-sided ethmoid air cells. There is fluid in the dependent right maxillary sinus at least in part owing to blood. The naranjo of the maxillary sinus appeared intact. The hard palate and pterygoid plates were intact. The bony temporomandibular joints revealed right greater than left arthritis but no bony dislocation. No mandibular fracture deformity. Orbital rims intact. Skull base and upper cervical carotid atherosclerotic vascular calcifications noted as well as degenerative changes at the C1-C2 level. IMPRESSION: CT HEAD: No intracerebral hemorrhage or acute appearing pathology. No calvarial fracture deformity. CT FACIAL BONES: Medial right orbital fracture with some hemorrhagic thickening of the right medial rectus and preseptal soft tissue swelling. Right-sided paranasal hemo-sinus with intact orbital floors and rims. No other facial fracture can be identified. Dictated by: Dictated on workstation # [id number]
[2019-07-20 18:14] LABS: ATYPICAL LYMPHOCYTES 3 %; BAND NEUTROPHILS 3 %; BASOPHILS % (MANUAL) 0 %; EOSINOPHILS % (MANUAL) 0 %; LYMPHOCYTES % (MANUAL) 13 %; MONOCYTES % (MANUAL) 0 %; NEUTROPHILS % (MANUAL) 81 %; NUCLEATED RED BLOOD CELLS 2; POLYCHROMASIA SLIGHT
[2019-07-20 18:15] LABS: ANISOCYTOSIS SLIGHT; HYPOCHROMASIA MARKED
--- OUTSIDE RECORDS SUMMARY | 2019-07-20 18:16 | XMS REPORT | Continuity of Care Document ---
Demographics Preferred Language Unknown Marital Status Unknown Faith Affiliation Unknown Race Unknown Ethnic Group Unknown Author Organization Unknown Address Unknown Phone Unavailable Allergies Active Description Code Type Severity Reaction Onset Reported/Identified Relationship to Patient Clinical Status Yes No Known Drug Allergies [id number] Drug Allergy Unknown N/A 11/13/2011 Yes morphine [id number] Drug Allergy Severe hallucination 07/12/2018 Medications There [...] 11/16/2011 Ot 414.01 COR ONARY ATHEROSCLEROSIS OF [place] CORON 11/16/2011 Ot 530.81 ESO PHAGEAL REFLUX [...] 401.9 HYPERTENSION, UNSPECIFIED ESSENTIAL 12/16/2011 WADE DO, JUSITCE K 414.00 CAD 12/16/2011 WADE DO, JUSTICE K 250.02 DIABETES II UNCONTROLLED (UNCOMPLICATED) 12/16/2011 WADE DO, JUSTICE K 401.9 HYPERTENSION, UNSPECIFIED ESSENTIAL 12/16/2011 WADE DO, JUSTICE K 414.00 CAD 12/16/2011 VAN LAWRENCE APRN 250.02 DIABETES II UNCONTROLLED (UNCOMPLICATED) 12/16/2011 MELINDA PLASTERER STUCCO, VAN A 40 1.9 HYPERTENSION, UNSPECIFIED ESSENTIAL 12/16/2011 MELINDA PLASTERER STUCCO, VAN A 414.00 CAD 12/16/2011 WHITE DDS, [...] AMADO MD 414.0 0 CAD 12/16/2011 MADCarlos PLASTERER STUCCO, LALITO L 250 .02 DIABETES II UNCONTROLLED (UNCOMPLICATED) 12/16/2011 NINI BREEN, LALITO L 401 .9 HYPERTENSION, UNSPECIFIED ESSENTIAL 12/16/2011 NINI PLASTERER STUCCO, LALITO L 414 .00 CAD 12/16/2011 GEE [...] (3 YRS AND ABOVE, IM) 01/14/2012 BEATRIZL PLASTERER STUCCO, LALITO L V04 .81 FLU DX (3 [...] DO, JUSTICE K 272.4 HYPERLIPIDEMIA 04/13/2012 MELINDA PLASTERER STUCCO, VAN A 27 2.4 HYPERLIPIDEMIA 04/13/2012 WHITE DDS, IBAN D 27 2.4 HYPERLIPIDEMIA 04/13/2012 GEE AMADO MD 272.4 HYPERLIPIDEMIA 04/13/2012 GEE AMADO MD 272.4 HYPERLIPIDEMIA 04/13/2012 MADCarlos PLASTERER STUCCO, LALITO L 272 .4 HYPERLIPIDEMIA 04/13/2012 GEE [...] 357 .2 POLYNEUROPATHY IN DIABETES 10/10/2012 GEE AMDAO MD 357.2 POLYNEUROPATHY IN DIABETES 10/10/2012 GEE [...] MD Ot 414. 01 CORONARY ATHEROSCLEROSIS OF [place] CORON 08/28/2013 BOOM MILLER MD Ot 786. [...] VERTEBRA UNSPECIFIED LEVEL 02/06/2014 LALITO TERRAZAS APRN L 805 .00 CLOSED FRACTURE [...] 4 PAIN IN JOINT INVOLVING HAND 06/01/2014 IGNRIS MARAVILLA, GEE 338.2 9 OTHER CHRONIC PAIN [...] Ot I25. 10 ATHSCL HEART DISEASE OF [place] CORONARY 03/13/2015 BOOM MILLER MD Ot R07. 89 OTHER CHEST PAIN 03/13/2015 BOOM MILLER MD, Ot Z68. 35 BODY MASS INDEX (BMI) 35.0-35.9, ADULT 03/13/2015 BOOM MILLER MD Ot Z79. 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 5 HYPERLIPIDEMIA, UNSPECIFIED 02/22/2017 BOOM MILLER MD Ot I10 ESSENTIAL (PRIMARY) HYPERTENSION 02/22/2017 BOOM MILLER MD Ot I25. 10 ATHSCL HEART DISEASE OF [place] CORONARY 02/22/2017 BOOM MILLER MD Ot R07. 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 10 ATHSCL HEART DISEASE OF [place] CORONARY 03/06/2017 BOOM MILLER MD Ot Z79. 84 SHELTER (CURRENT) USE OF ORAL HYPOGLYC 03/17/2017 BOOM [...] Ot I25. 10 ATHSCL HEART DISEASE OF [place] CORONARY 03/25/2017 BOOM MILLER MD Ot I48. 91 UNSPECIFIED ATRIAL FIBRILLATION 03/26/2017 BOOM IMLLER MD Ot E78. 5 HYPERLIPIDEMIA, UNSPECIFIED 03/26/2017 BOOM MILLER MD Ot I10 ESSENTIAL (PRIMARY) HYPERTENSION 03/26/2017 BOOM MILLER MD Ot I25. 10 ATHSCL HEART DISEASE OF [place] CORONARY 03/26/2017 BOOM MILLER MD Ot I48. [...] Ot I25. 10 ATHSCL HEART DISEASE OF [place] CORONARY 04/01/2017 BOOM MILLER MD Ot I48. 91 UNSPECIFIED ATRIAL FIBRILLATION 04/01/2017 BOOM MILLER MD Ot R06. 83 SNORING 04/01/2017 BOOM MILLER MD Ot Z68. 35 BODY MASS INDEX (BMI) 35.0-35.9, ADULT 04/01/2017 BOOM MILLER MD Ot Z79. 4 SHELTER (CURRENT) USE OF INSULIN 04/01/2017 BOOM MILLER MD Ot Z79. 82 SHELTER (CURRENT) USE OF ASPIRIN 04/01/2017 BOOM MILLER MD Ot Z79.899 OTHER SHELTER (CURRENT) DRUG THERAPY 04/01/2017 BOOM MILLER MD [...] Ot I25. 10 ATHSCL HEART DISEASE OF [place] CORONARY 04/02/2017 BOOM MILLER MD Ot R07. 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 10 ATHSCL HEART DISEASE OF [place] CORONARY 04/02/2017 BOOM MILLER MD Ot I48. 91 UNSPECIFIED ATRIAL FIBRILLATION 04/02/2017 BOOM MILLER MD Ot R06. 83 SNORING 04/02/2017 BOOM MILLER MD Ot Z68. 35 BODY MASS INDEX (BMI) 35.0-35.9, ADULT 04/02/2017 BOOM MILLER MD Ot Z79. 4 SHELTER (CURRENT) USE OF INSULIN 04/02/2017 BOOM MILLER MD Ot Z79. 82 SLD EDUCATIONAL AIDE (CURRENT) USE OF ASPIRIN 04/02/2017 BOOM MILLER MD Ot Z79.899 OTHER SLD EDUCATIONAL AIDE (CURRENT) DRUG THERAPY 04/02/2017 BOOM MILLER MD [...] Ot I25. 10 ATHSCL HEART DISEASE OF [place] CORONARY 04/20/2017 BOOM MILLER MD Ot I48. 91 UNSPECIFIED ATRIAL FIBRILLATION 04/20/2017 BOOM MILLER MD Ot R06. 83 SNORING 04/20/2017 BOOM MILLER MD Ot Z68. 35 BODY MASS INDEX (BMI) 35.0-35.9, ADULT 04/20/2017 BOOM MILLER MD Ot Z79. 4 SHELTER (CURRENT) USE OF INSULIN 04/20/2017 BOOM MILLER MD Ot Z79. 82 SLD EDUCATIONAL AIDE (CURRENT) USE OF ASPIRIN 04/20/2017 BOOM MILLER MD Ot Z79.899 OTHER SHELTER (CURRENT) DRUG THERAPY 04/20/2017 BOOM MILLER MD [...] Ot I25. 10 ATHSCL HEART DISEASE OF [place] CORONARY 09/24/2017 BOOM MILLER MD Ot R07. 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 10 ATHSCL HEART DISEASE OF [place] CORONARY 09/24/2017 BOOM MILLER MD Ot I48. 91 UNSPECIFIED ATRIAL FIBRILLATION 09/24/2017 BOOM MILLER MD Ot R06. 83 SNORING 09/24/2017 BOOM MILLER MD Ot Z68. 35 BODY MASS INDEX (BMI) 35.0-35.9, ADULT 09/24/2017 BOOM MILLER MD Ot Z79. 4 SHELTER (CURRENT) USE OF INSULIN 09/24/2017 BOOM MILLER MD Ot Z79. 82 SLD EDUCATIONAL AIDE (CURRENT) USE OF ASPIRIN 09/24/2017 BOOM MILLER MD Ot Z79.899 OTHER SLD EDUCATIONAL AIDE (CURRENT) DRUG THERAPY 09/24/2017 BOOM MILLER [...] Ot I25. 10 ATHSCL HEART DISEASE OF [place] CORONARY 01/14/2018 BOOM MILLER MD Ot I48. 91 UNSPECIFIED ATRIAL FIBRILLATION 01/14/2018 BOOM MILLER MD Ot R06. 83 SNORING 01/14/2018 BOOM MILLER MD Ot Z68. 35 BODY MASS INDEX (BMI) 35.0-35.9, ADULT 01/14/2018 BOOM MILLER MD Ot Z79. 4 SHELTER (CURRENT) USE OF INSULIN 01/14/2018 BOOM MILLER MD Ot Z79. 82 SHELTER (CURRENT) USE OF ASPIRIN 01/14/2018 BOOM MILLER MD Ot Z79.899 OTHER SHELTER (CURRENT) DRUG THERAPY 01/14/2018 BOOM MILLER MD [...] Ot I25. 10 ATHSCL HEART DISEASE OF [place] CORONARY 01/14/2018 BOOM MILLER MD Ot I48. 91 UNSPECIFIED ATRIAL FIBRILLATION 01/14/2018 BOOM MILLER MD Ot R06. 83 SNORING 01/14/2018 BOOM MILLER MD Ot Z68. 35 BODY MASS INDEX (BMI) 35.0-35.9, ADULT 01/14/2018 BOOM MILLER MD Ot Z79. 4 SHELTER (CURRENT) USE OF INSULIN 01/14/2018 BOOM MILLER MD Ot Z79. 82 SLD EDUCATIONAL AIDE (CURRENT) USE OF ASPIRIN 01/14/2018 BOOM MILLER MD Ot Z79.899 OTHER SLD EDUCATIONAL AIDE (CURRENT) DRUG THERAPY 01/14/2018 BOOM MILLER [...] 02/07/2018 BOOM MILLER MD Ot Z79. 01 SHELTER (CURRENT) USE OF ANTICOAGULANT 02/28/2018 BOOM MILLER MD Ot I48. 0 PAROXYSMAL ATRIAL FIBRILLATION 02/28/2018 BOOM MILLER MD Ot Z51. 81 ENCOUNTER FOR THERAPEUTIC DRUG LEVEL MON 02/28/2018 BOOM MILLER MD Ot Z79. 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 03/02/2018 BOOM MILLER [...] 786.50 CHEST PAIN NOS 03/09/2018 MELINDAVAN CHISHOLM PLASTERER STUCCO Ot V76.12 OTH SCREEN MAMMO-MALIGN NEOPLASM OF [place] 03/09/2018 BOOM MILLER MD Ot E78. 5 HYPERLIPIDEMIA, UNSPECIFIED 03/09/2018 BOOM MILLER MD Ot I10 ESSENTIAL (PRIMARY) HYPERTENSION 03/09/2018 BOOM MILLER MD Ot I25. 10 ATHSCL HEART DISEASE OF [place] CORONARY 03/09/2018 BOOM MILLER MD Ot R07. 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 10 ATHSCL HEART DISEASE OF [place] CORONARY 03/09/2018 BOOM MILLER MD Ot I48. 91 UNSPECIFIED ATRIAL FIBRILLATION 03/09/2018 BOOM MILLER MD Ot R06. 83 SNORING 03/09/2018 BOOM MILLER MD Ot Z68. 35 BODY MASS INDEX (BMI) 35.0-35.9, ADULT 03/09/2018 BOOM MILLER MD Ot Z79. 4 SHELTER (CURRENT) USE OF INSULIN 03/09/2018 BOOM MILLER MD Ot Z79. 82 SLD EDUCATIONAL AIDE (CURRENT) USE OF ASPIRIN 03/09/2018 BOOM MILLER MD Ot Z79.899 OTHER SHELTER (CURRENT) DRUG THERAPY 03/09/2018 BOOM MILLER MD Ot Z95. 5 PRESENCE OF CORONARY ANGIOPLASTY IMPLANT 03/09/2018 BOOM MILLER MD Ot I48. 91 UNSPECIFIED ATRIAL FIBRILLATION 03/09/2018 BOOM MILLER MD Ot I48. 0 PAROXYSMAL ATRIAL FIBRILLATION 03/09/2018 BOOM MILLER MD Ot Z51. 81 ENCOUNTER FOR THERAPEUTIC DRUG LEVEL MON 03/09/2018 BOOM MILLER MD Ot Z79. 01 SHELTER (CURRENT) USE OF ANTICOAGULANT 03/09/2018 BOOM MILLER [...] Ot I25. 10 ATHSCL HEART DISEASE OF [place] CORONARY 03/09/2018 BOOM MILLER MD Ot I35. 0 NONRHEUMATIC AORTIC (VALVE) STENOSIS 03/09/2018 BOOM MILLER MD Ot I48. 0 PAROXYSMAL ATRIAL FIBRILLATION 03/09/2018 BOOM MILLER MD Ot R07. 9 CHEST PAIN, UNSPECIFIED 03/09/2018 BOOM MILLER MD Ot Z68. 37 BODY MASS INDEX (BMI) 37.0-37.9, ADULT 03/09/2018 BOOM MILLER MD Ot Z79. 4 SHELTER (CURRENT) USE OF INSULIN 03/09/2018 BOOM MILLER MD Ot Z79.899 OTHER SHELTER (CURRENT) DRUG THERAPY 03/09/2018 BOOM MILLER MD [...] Ot I25. 10 ATHSCL HEART DISEASE OF [place] CORONARY 03/11/2018 BOOM MILLER MD Ot I35. 0 NONRHEUMATIC AORTIC (VALVE) STENOSIS 03/11/2018 BOOM MILLER MD Ot I48. 0 PAROXYSMAL ATRIAL FIBRILLATION 03/11/2018 BOOM MILLER MD Ot R07. 9 CHEST PAIN, UNSPECIFIED 03/11/2018 BOOM MILLER MD Ot Z68. 37 BODY MASS INDEX (BMI) 37.0-37.9, ADULT 03/11/2018 BOOM MILLER MD Ot Z79. 4 SLD EDUCATIONAL AIDE (CURRENT) USE OF INSULIN 03/11/2018 BOOM MILLER MD Ot Z79.899 OTHER SLD EDUCATIONAL AIDE (CURRENT) DRUG THERAPY 03/11/2018 BOOM MILLER MD Ot Z87.891 PERSONAL HISTORY OF NICOTINE DEPENDENCE 03/11/2018 BOOM MILLER MD Ot Z95. 5 PRESENCE OF CORONARY ANGIOPLASTY IMPLANT 03/31/2018 BOOM MILLER MD Ot Z79. 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 04/18/2018 BOOM MILLER MD Ot Z79. 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 05/05/2018 BOOM MILLER MD Ot I48. 0 PAROXYSMAL ATRIAL FIBRILLATION 05/05/2018 BOOM MILLER MD Ot Z79. 01 SHELTER (CURRENT) USE OF ANTICOAGULANT 05/30/2018 BOOM MILLER MD Ot I48. 0 PAROXYSMAL ATRIAL FIBRILLATION 05/30/2018 BOOM MILLER MD Ot Z79. 01 SHELTER (CURRENT) USE OF ANTICOAGULANT 06/06/2018 BOOM MILLER MD Ot I48. 0 PAROXYSMAL ATRIAL FIBRILLATION 06/06/2018 BOOM MILLER MD Ot Z79. 01 SHELTER (CURRENT) USE OF ANTICOAGULANT 07/11/2018 BOOM MILLER MD Ot I48. 0 PAROXYSMAL ATRIAL FIBRILLATION 07/11/2018 BOOM MILLER MD Ot Z79. 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 07/12/2018 BOOM MILLER MD Ot I48. 0 PAROXYSMAL ATRIAL FIBRILLATION 07/12/2018 BOOM MILLER MD Ot Z79. 01 SHELTER (CURRENT) USE OF ANTICOAGULANT 07/12/2018 MICHAEL DE [...] Ot I25. 10 ATHSCL HEART DISEASE OF [place] CORONARY 07/12/2018 MICHAEL DE LA GARZA MD [...] DE LA GARZA MD Ot Z79. 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 07/12/2018 MICHAEL DE LA GARZA MD Ot Z79. 02 SLD EDUCATIONAL AIDE (CURRENT) USE OF ANTITHROMBOTI 07/12/2018 MICHAEL DE LA GARZA MD Ot Z79. 4 SLD EDUCATIONAL AIDE (CURRENT) USE OF INSULIN 07/12/2018 MICHAEL DE LA GARZA MD Ot Z79. 82 SHELTER (CURRENT) USE OF ASPIRIN 07/12/2018 MICHAEL DE [...] Ot I25. 10 ATHSCL HEART DISEASE OF [place] CORONARY 07/14/2018 MICHAEL DE LA GARZA MD [...] DE LA GARZA MD, Ot Z79. 01 SHELTER (CURRENT) USE OF ANTICOAGULANT 07/14/2018 MICHAEL DE LA GARZA MD, Ot Z79. 02 SHELTER (CURRENT) USE OF ANTITHROMBOTI 07/14/2018 MICHAEL DE LA GARZA MD Ot Z79. 4 SHELTER (CURRENT) USE OF INSULIN 07/14/2018 MICHAEL DE LA GARZA MD Ot Z79. 82 SLD EDUCATIONAL AIDE (CURRENT) USE OF ASPIRIN 07/14/2018 MICHAEL DE [...] MD Ot I25.10 ATHSCL HEART DISEASE OF [place] CORONARY 07/23/2018 Jaime GARSIA MD Ot I48 [...] ADULT 07/23/2018 Jaime GARSIA MD, Ot Z79.01 SHELTER (CURRENT) USE OF ANTICOAGULANT 07/23/2018 Jaime GARSIA [...] MD Ot I25.10 ATHSCL HEART DISEASE OF [place] CORONARY 07/24/2018 Jaime GARSIA MD Ot I48 [...] ADULT 07/24/2018 Jaime GARSIA MD Ot Z79.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 07/24/2018 Jaime GARSIA [...] MD, Ot I25.10 ATHSCL HEART DISEASE OF [place] CORONARY 07/24/2018 Jaime GARSIA MD Ot I48 .0 PAROXYSMAL ATRIAL FIBRILLATION 07/24/2018 Jaime GARSIA MD Ot I95 .2 HYPOTENSION DUE TO DRUGS 07/24/2018 Jaime GARSIA MD Ot K21 .9 GASTRO-ESOPHAGEAL REFLUX DISEASE WITHOUT 07/24/2018 Jaime GARSIA MD, Ot M54 .9 DORSALGIA, UNSPECIFIED 07/24/2018 Jiame GARSIA MD, Ot N18 .9 CHRONIC KIDNEY DISEASE, UNSPECIFIED 07/24/2018 Jaime GARSIA MD, Ot N28 .9 DISORDER OF KIDNEY AND URETER, UNSPECIFI 07/24/2018 Jaime GARSIA MD, Ot R00 .1 BRADYCARDIA, UNSPECIFIED 07/24/2018 Jaime GARSIA MD, Ot R57 .0 CARDIOGENIC SHOCK 07/24/2018 Jaime GARSIA MD Ot Z68.38 BODY MASS INDEX (BMI) 38.0-38.9, ADULT 07/24/2018 Jaime GARSIA MD Ot Z79.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 07/24/2018 Jaime GARSIA [...] MD, Ot I25.10 ATHSCL HEART DISEASE OF [place] CORONARY 07/24/2018 Jaime GARSIA MD Ot I48 [...] OF CORONARY ARTERY STENT, SUBSE 07/24/2018 Jaime GARSAI MD, Ot Z68.38 BODY MASS INDEX (BMI) 38.0-38.9, ADULT 07/24/2018 Jaime GARSIA MD, Ot Z79.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 07/24/2018 Jaime GARSIA MD, Ot Z79 .4 SHELTER (CURRENT) USE OF INSULIN 07/24/2018 Jaime GARSIA [...] Ot I25. 10 ATHSCL HEART DISEASE OF [place] CORONARY 12/15/2018 MICHAEL DE LA GARZA MD [...] DE LA GARZA MD Ot Z79. 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 12/15/2018 MICHAEL DE LA GARZA MD Ot Z79. 02 SHELTER (CURRENT) USE OF ANTITHROMBOTI 12/15/2018 MICHAEL DE LA GARZA MD Ot Z79. 4 SHELTER (CURRENT) USE OF INSULIN 12/15/2018 MICHAEL DE LA GARZA MD Ot Z79. 82 SLD EDUCATIONAL AIDE (CURRENT) USE OF ASPIRIN 12/15/2018 MICHAEL DE [...] ZACK Ot E78.5 HYPERLIPIDEMIA, UNSPECIFIED 01/13/2019 GREGG ODLAN ZACK Ot E83.39 OTHER DISORDERS OF PHOSPHORUS [...] DOI Ot I25.10 ATHSCL HEART DISEASE OF [place] CORONARY 01/13/2019 ZACK ESCOBEDO DO Ot I25.2 [...] ADULT 01/13/2019 ZACK ESCOBEDO DO Ot Z79.01 SHELTER (CURRENT) USE OF ANTICOAGULANT 01/13/2019 ZACK ESCOBEDO DO Ot Z79.82 SHELTER (CURRENT) USE OF ASPIRIN 01/13/2019 ZACK ESCOBEDO [...] DO Ot I25.10 ATHSCL HEART DISEASE OF [place] CORONARY 01/19/2019 ZACK ESCOBEDO DO Ot I25.2 [...] ADULT 01/19/2019 ZACK ESCOBEDO DO Ot Z79.01 SHELTER (CURRENT) USE OF ANTICOAGULANT 01/19/2019 ZACK ESCOBEDO DO Ot Z79.82 SHELTER (CURRENT) USE OF ASPIRIN 01/19/2019 ZACK ESCOBEDO [...] DOI Ot I25.10 ATHSCL HEART DISEASE OF [place] CORONARY 01/19/2019 GREGG DOLAN ZACK Ot I25.2 [...] ADULT 01/19/2019 ZACK ESCOBEDO DO Ot Z79.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 01/19/2019 ZACK ESCOBEDO DO Ot Z79.82 SLD EDUCATIONAL AIDE (CURRENT) USE OF ASPIRIN 01/19/2019 WILTON ESCOBEDO [...] DOI Ot I25.10 ATHSCL HEART DISEASE OF [place] CORONARY 01/19/2019 WILTON ESCOBEDO DOI Ot I25.2 [...] ADULT 01/19/2019 ZACK ESCOBEDO DO Ot Z79.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 01/19/2019 WILTON ESCOBEDO DOI Ot Z79.82 SHELTER (CURRENT) USE OF ASPIRIN 01/19/2019 ZACK ESCOBEDO [...] G47.33 OBSTRUCTIVE SLEEP APNEA (ADULT) (PEDIATR 01/19/2019 ZCAK ESCOBEDO DO Ot G89.29 OTHER CHRONIC PAIN 01/19/2019 ZACK ESCOBEDO DO Ot I13.0 HYP HRT CHR KDNY DIS W HRT FAIL AND ST 01/19/2019 GREGG DOLAN ZACK Ot I21.A1 MYOCARDIAL INFARCTION TYPE 2 01/19/2019 WILTON ESCOBEDO DOI Ot I25.10 ATHSCL HEART DISEASE OF [place] CORONARY 01/19/2019 GREGG DOLAN ZACK Ot I25.2 [...] ADULT 01/19/2019 GREGG DOLAN ZACK Ot Z79.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 01/19/2019 GREGG DOLAN ZACK Ot Z79.82 SHELTER (CURRENT) USE OF ASPIRIN 01/19/2019 WILTON ESCOBEDO [...] 2 DIABETES MELLITUS WITHOUT COMPLIC 01/19/2019 GREGG DOLAN ZACK Ot E66.9 OBESITY, UNSPECIFIED 01/19/2019 GREGG [...] DOI Ot I25.10 ATHSCL HEART DISEASE OF [place] CORONARY 01/19/2019 WILTON ESCOBEDO DOI Ot I25.2 [...] ADULT 01/19/2019 ZACK ESCOBEDO DO Ot Z79.01 SHELTER (CURRENT) USE OF ANTICOAGULANT 01/19/2019 ZACK ESCOBEDO DO Ot Z79.82 SLD EDUCATIONAL AIDE (CURRENT) USE OF ASPIRIN 01/19/2019 ZACK ESCOBEDO [...] ZACK Ot I25.10 ATHSCL HEART DISEASE OF [place] CORONARY 01/28/2019 GREGG DOLAN ZACK Ot I48.0 [...] ADULT 01/28/2019 ZACK ESCOBEDO DO Ot Z79.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 01/28/2019 ZACK ESCOBEDO DO Ot Z79.4 SLD EDUCATIONAL AIDE (CURRENT) USE OF INSULIN 01/28/2019 ZACK ESCOBEDO [...] Ot I25. 10 ATHSCL HEART DISEASE OF [place] CORONARY 02/05/2019 ALEXA SOLIZ MD, Ot I48. 91 UNSPECIFIED ATRIAL FIBRILLATION 02/05/2019 ALEXA SOLIZ MD, Ot I95. 89 OTHER HYPOTENSION 02/05/2019 ALEXA SOLIZ MD, Ot J44. 9 CHRONIC OBSTRUCTIVE PULMONARY DISEASE, U 02/05/2019 ALEXA SOLIZ MD, Ot K21. 9 GASTRO-ESOPHAGEAL REFLUX DISEASE WITHOUT 02/05/2019 ALEXA SOLIZ MD, Ot R00. 1 BRADYCARDIA, UNSPECIFIED 02/05/2019 ALEXA SOLIZ MD, Ot Z79. 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 02/05/2019 ALEXA SOLIZ MD, Ot Z79. 4 SHELTER (CURRENT) USE OF INSULIN 02/05/2019 ALEXA SOLIZ MD, Ot Z79. 82 SHELTER (CURRENT) USE OF ASPIRIN 02/05/2019 ALEXA SOLIZ MD, Ot Z79.899 OTHER SLD EDUCATIONAL AIDE (CURRENT) DRUG THERAPY 02/05/2019 ALEXA SOLIZ MD, [...] Ot I25. 10 ATHSCL HEART DISEASE OF [place] CORONARY 02/07/2019 ALEXA SOLIZ MD, Ot I48. 91 UNSPECIFIED ATRIAL FIBRILLATION 02/07/2019 ALEXA SOLIZ MD, Ot I95. 89 OTHER HYPOTENSION 02/07/2019 ALEXA SOLIZ MD, Ot J44. 9 CHRONIC OBSTRUCTIVE PULMONARY DISEASE, U 02/07/2019 ALEXA SOLIZ MD, Ot K21. 9 GASTRO-ESOPHAGEAL REFLUX DISEASE WITHOUT 02/07/2019 ALEXA SOLZI MD, Ot R00. 1 BRADYCARDIA, UNSPECIFIED 02/07/2019 ALEXA SOLIZ MD, Ot Z79. 01 SHELTER (CURRENT) USE OF ANTICOAGULANT 02/07/2019 ALEXA SOLIZ MD, Ot Z79. 4 SLD EDUCATIONAL AIDE (CURRENT) USE OF INSULIN 02/07/2019 ALEXA SOLIZ MD, Ot Z79. 82 SLD EDUCATIONAL AIDE (CURRENT) USE OF ASPIRIN 02/07/2019 ALEXA SOLIZ [...] Ot I25. 10 ATHSCL HEART DISEASE OF [place] CORONARY 02/13/2019 ALEXA SOLIZ MD, Ot I48. 91 UNSPECIFIED ATRIAL FIBRILLATION 02/13/2019 ALEXA SOLIZ MD, Ot I95. 89 OTHER HYPOTENSION 02/13/2019 ALEXA SOLIZ MD, Ot J44. 9 CHRONIC OBSTRUCTIVE PULMONARY DISEASE, U 02/13/2019 ALEXA SOLIZ MD, Ot K21. 9 GASTRO-ESOPHAGEAL REFLUX DISEASE WITHOUT 02/13/2019 ALEXA SOLIZ MD, Ot R00. 1 BRADYCARDIA, UNSPECIFIED 02/13/2019 ALEXA SOLIZ MD, Ot Z79. 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 4 SLD EDUCATIONAL AIDE (CURRENT) USE OF INSULIN 02/13/2019 ALEXA SOLIZ MD, Ot Z79. 82 SHELTER (CURRENT) USE OF ASPIRIN 02/13/2019 ALEXA SOLIZ [...] Ot I25. 10 ATHSCL HEART DISEASE OF [place] CORONARY 02/15/2019 ALEXA SOLIZ MD, Ot I48. 91 UNSPECIFIED ATRIAL FIBRILLATION 02/15/2019 ALEXA SOLIZ MD, Ot I95. 89 OTHER HYPOTENSION 02/15/2019 ALEXA SOLIZ MD, Ot J44. 9 CHRONIC OBSTRUCTIVE PULMONARY DISEASE, U 02/15/2019 ALEXA SOLIZ MD, Ot K21. 9 GASTRO-ESOPHAGEAL REFLUX DISEASE WITHOUT 02/15/2019 ALEXA SOLIZ MD, Ot R00. 1 BRADYCARDIA, UNSPECIFIED 02/15/2019 ALEXA SOLIZ MD, Ot Z79. 01 SHELTER (CURRENT) USE OF ANTICOAGULANT 02/15/2019 ALEXA SOLIZ MD, Ot Z79. 4 SLD EDUCATIONAL AIDE (CURRENT) USE OF INSULIN 02/15/2019 ALEXA SOLIZ MD, Ot Z79. 82 SHELTER (CURRENT) USE OF ASPIRIN 02/15/2019 ALEXA SOLIZ MD, Ot Z79.899 OTHER SLD EDUCATIONAL AIDE (CURRENT) DRUG THERAPY 02/15/2019 ALEXA SOLIZ MD, [...] Ot I25. 10 ATHSCL HEART DISEASE OF [place] CORONARY 02/24/2019 ALEXA SOLIZ MD, Ot I48. 91 UNSPECIFIED ATRIAL FIBRILLATION 02/24/2019 ALEXA SOLIZ MD, Ot I95. 89 OTHER HYPOTENSION 02/24/2019 ALEXA SOLIZ MD, Ot J44. 9 CHRONIC OBSTRUCTIVE PULMONARY DISEASE, U 02/24/2019 ALEXA SOLIZ MD, Ot K21. 9 GASTRO-ESOPHAGEAL REFLUX DISEASE WITHOUT 02/24/2019 ALEXA SOLIZ MD, Ot R00. 1 BRADYCARDIA, UNSPECIFIED 02/24/2019 ALEXA SOLIZ MD, Ot Z79. 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 02/24/2019 ALEXA SOLIZ MD, Ot Z79. 4 SLD EDUCATIONAL AIDE (CURRENT) USE OF INSULIN 02/24/2019 ALEXA SOLIZ MD, Ot Z79. 82 SLD EDUCATIONAL AIDE (CURRENT) USE OF ASPIRIN 02/24/2019 ALEXA SOLIZ MD, Ot Z79.899 OTHER SHELTER (CURRENT) DRUG THERAPY 02/24/2019 ALEXA SOLIZ MD, [...] ZACK Ot I25.10 ATHSCL HEART DISEASE OF [place] CORONARY 02/24/2019 GREGG DOLAN ZACK Ot I48.0 [...] UNSPECIFIED 02/24/2019 ESCOBEDONISHI DOLAN ZACK Ot Z79.4 SHELTER (CURRENT) USE OF INSULIN 02/24/2019 ESCOBEDONISHI DOLAN [...] Ot I25. 10 ATHSCL HEART DISEASE OF [place] CORONARY 02/27/2019 ALEXA SOLIZ MD, Ot I48. 91 UNSPECIFIED ATRIAL FIBRILLATION 02/27/2019 ALEXA SOLIZ MD, Ot I95. 89 OTHER HYPOTENSION 02/27/2019 ALEXA SOLIZ MD, Ot J44. 9 CHRONIC OBSTRUCTIVE PULMONARY DISEASE, U 02/27/2019 ALEXA SOLIZ MD, Ot K21. 9 GASTRO-ESOPHAGEAL REFLUX DISEASE WITHOUT 02/27/2019 ALEXA SOLIZ MD, Ot R00. 1 BRADYCARDIA, UNSPECIFIED 02/27/2019 ALEXA SOLIZ MD, Ot Z79. 01 SHELTER (CURRENT) USE OF ANTICOAGULANT 02/27/2019 ALEXA SOLIZ MD, Ot Z79. 4 SHELTER (CURRENT) USE OF INSULIN 02/27/2019 ALEXA SOLIZ MD, Ot Z79. 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 5 HYPERLIPIDEMIA, UNSPECIFIED 03/01/2019 BOOM MILLER MD Ot I10 ESSENTIAL (PRIMARY) HYPERTENSION 03/01/2019 BOOM MILLER MD Ot I25. 10 ATHSCL HEART DISEASE OF [place] CORONARY 03/01/2019 BOOM MILLER MD Ot R07. 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 10 ATHSCL HEART DISEASE OF [place] CORONARY 03/01/2019 BOOM MILLER MD Ot I48. 91 UNSPECIFIED ATRIAL FIBRILLATION 03/01/2019 BOOM MILLER MD Ot R06. 83 SNORING 03/01/2019 BOOM MILLER MD Ot Z68. 35 BODY MASS INDEX (BMI) 35.0-35.9, ADULT 03/01/2019 BOOM MILLER MD Ot Z79. 4 SLD EDUCATIONAL AIDE (CURRENT) USE OF INSULIN 03/01/2019 BOOM MILLER MD Ot Z79. 82 SHELTER (CURRENT) USE OF ASPIRIN 03/01/2019 BOOM MILLER MD Ot Z79.899 OTHER SLD EDUCATIONAL AIDE (CURRENT) DRUG THERAPY 03/01/2019 BOOM MILLER MD Ot Z95. 5 PRESENCE OF CORONARY ANGIOPLASTY IMPLANT 03/01/2019 BOOM MILLER MD Ot I48. 0 PAROXYSMAL ATRIAL FIBRILLATION 03/01/2019 BOOM MILLER MD Ot Z51. 81 ENCOUNTER FOR THERAPEUTIC DRUG LEVEL MON 03/01/2019 BOOM MILLER MD, Ot I48. 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 03/01/2019 ILANA SANTAMARIA MD Ot I70.2 13 ATHSCL [place] ARTERIES OF EXTR W [facility] 03/06/2019 ILANA SANTAMARIA MD Ot I70.2 13 ATHSCL [place] ARTERIES OF [facility] 03/10/2019 ILANA SANTAMARIA MD Ot I70.9 0 UNSPECIFIED ATHEROSCLEROSIS 03/23/2019 ILANA SANTAMARIA MD Ot I70.2 13 ATHSCL [place] ARTERIES OF EXTRM W INTRMT 03/28/2019 ILANA [...] APNEA (ADULT) (PEDIATR 04/19/2019 IMER, LETTY E PLASTERER STUCCO Ot J30.9 ALLERGIC RHINITIS, UNSPECIFIED 04/19/2019 IMER, LETTY E PLASTERER STUCCO Ot J44.9 CHRONIC OBSTRUCTIVE PULMONARY DISEASE, U 04/19/2019 IMER, LETTY E PLASTERER STUCCO Ot J81.1 CHRONIC PULMONARY EDEMA 04/19/2019 IMER, LETTY E PLASTERER STUCCO Ot K74.60 UNSPECIFIED CIRRHOSIS OF LIVER 04/19/2019 IMER, LETTY E PLASTERER STUCCO Ot R16.1 SPLENOMEGALY, NOT ELSEWHERE CLASSIFIED 04/19/2019 IMER, LETTY E PLASTERER STUCCO Ot R18.8 OTHER ASCITES 04/19/2019 IMER, LETTY E PLASTERER STUCCO Ot Z95.818 PRESENCE OF OTHER CARDIAC IMPLANTS AND G 05/02/2019 ILANA SANTAMARIA MD Ot I70.9 0 UNSPECIFIED ATHEROSCLEROSIS 05/16/2019 IMER, LETTY E PLASTERER STUCCO Ot G47.33 OBSTRUCTIVE SLEEP APNEA (ADULT) (PEDIATR 05/16/2019 IMER, LETTY E PLASTERER STUCCO Ot J30.9 ALLERGIC RHINITIS, UNSPECIFIED 05/16/2019 IMER, LETTY E PLASTERER STUCCO Ot J44.9 CHRONIC OBSTRUCTIVE PULMONARY DISEASE, U 05/16/2019 IMER, LETTY E PLASTERER STUCCO Ot J81.1 CHRONIC PULMONARY EDEMA 05/16/2019 IMER, LETTY E PLASTERER STUCCO Ot K74.60 UNSPECIFIED CIRRHOSIS OF LIVER 05/16/2019 IMER, LETTY E PLASTERER STUCCO Ot R16.1 SPLENOMEGALY, NOT ELSEWHERE CLASSIFIED 05/16/2019 IMER, LETTY E PLASTERER STUCCO Ot R18.8 OTHER ASCITES 05/16/2019 IMER, LETTY E PLASTERER STUCCO Ot Z95.818 PRESENCE OF OTHER CARDIAC IMPLANTS AND G 06/19/2019 BOOM MILLER MD Ot E78. 5 HYPERLIPIDEMIA, UNSPECIFIED 06/19/2019 BOOM MILLER MD Ot I10 ESSENTIAL (PRIMARY) HYPERTENSION 06/19/2019 BOOM MILLER MD Ot I25. 10 ATHSCL HEART DISEASE OF [place] CORONARY 06/19/2019 BOOM MILLER MD Ot R07. 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 10 ATHSCL HEART DISEASE OF [place] CORONARY 06/19/2019 BOOM MILLER MD Ot I48. 91 UNSPECIFIED ATRIAL FIBRILLATION 06/19/2019 BOOM MILLER MD Ot R06. 83 SNORING 06/19/2019 BOOM MILLER MD Ot Z68. 35 BODY MASS INDEX (BMI) 35.0-35.9, ADULT 06/19/2019 BOOM MILLER MD Ot Z79. 4 SHELTER (CURRENT) USE OF INSULIN 06/19/2019 BOOM MILLER MD Ot Z79. 82 SHELTER (CURRENT) USE OF ASPIRIN 06/19/2019 BOOM MILLER MD, Ot Z79.899 OTHER SLD EDUCATIONAL AIDE (CURRENT) DRUG THERAPY 06/19/2019 BOOM MILLER MD Ot Z95. 5 PRESENCE OF CORONARY ANGIOPLASTY IMPLANT 06/19/2019 BOOM MILLER MD Ot I48. 0 PAROXYSMAL ATRIAL FIBRILLATION 06/19/2019 BOOM MILLER MD Ot Z51. 81 ENCOUNTER FOR THERAPEUTIC DRUG LEVEL MON 06/19/2019 BOOM MILLER MD, Ot I48. 0 PAROXYSMAL ATRIAL FIBRILLATION 06/19/2019 BOOM MILLER MD, Ot Z79. 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 06/19/2019 ILANA SANTAMARIA MD Ot I70.2 13 ATHSCL [place] ARTERIES OF EXTRM W INTRMT 06/19/2019 ILANA [...] SPLENOMEGALY, NOT ELSEWHERE CLASSIFIED 06/19/2019 LETTY WILLAMS PLASTERER STUCCO Ot R18.8 OTHER ASCITES 06/19/2019 LETTY WILLAMS PLASTERER STUCCO Ot Z95.818 PRESENCE OF OTHER CARDIAC IMPLANTS [...] 11/13/[address]/INFUSE PLATELET INHIBITOR 11/13/2011 30395 ROUT INE VENIPUNCTURE 01/14/2012 28681 A1C (IN-HOUSE) 01/14/2012 37289 CMP 01/15/2012 2351736 GF R CALC (RESULT ONLY) 01/15/2012 50426 ROUT INE VENIPUNCTURE 04/13/2012 71361 BMP 04/13/2012 5612867 GF R CALC (RESULT ONLY) 04/13/2012 10989 A1C (IN-HOUSE) 04/25/2012 67177 MICR O ALBUMIN-IN HOUSE 04/25/2012 16352 MICR OALBUMIN 04/25/2012 08095 HEPA TITIS PROFILE 05/24/2012 75497 ROUT INE VENIPUNCTURE 08/05/2012 18711 A1C (IN-HOUSE) 08/05/2012 18236 CMP 08/05/2012 02546 LIPI D PANEL 08/05/2012 [id number] GF R CALC (RESULT ONLY) 08/05/2012 09878 A1C (IN-HOUSE) 11/10/2012 96618 A1C (IN-HOUSE) 02/24/2013 24316 ROUT INE VENIPUNCTURE 05/30/2013 03986 EKG, TRACING (IN-HOUSE) 05/30/2013 51688 LIPI D PANEL 05/30/2013 79059 MAGNESIUM 05/30/2013 24384 CBC 05/30/2013 2059058 GF R CALC (RESULT ONLY) 05/30/2013 04247 CMP 05/30/2013 84316 TSH 05/30/2013 78229 NUCL EAR STRESS TESTING 07/28/2013 90656 ECHO 2D 07/28/2013 48468 MAMM OGRAM, SCREENING 10/23/2013 61020 XRAY CERVICAL SPINE, 2 OR 3 VIEWS 02/20/2014 02746 XRAY WRIST RIGHT COMP MIN 3 VIEWS 03/06/2014 27529 A1C (IN-HOUSE) 03/23/2014 90922 XRAY CERVICAL SPINE, 2 OR 3 VIEWS 04/02/2014 [id number] PE RFORMANCE OF CARDIAC PACING, CONTINUOU 07/21/2018 [id number] IN SERT OF MONITOR DEV INTO CHEST [...] 7-25 CREATININE 1.27 mg/dL 0.50-0.99 eGFR NON-AFR. SWISS 46 mL/min/1.73m2 > OR = 60 eGFR [...] INFLUENZA A AND B ANTIGENS BY [facility] Complete blood count (CBC) with automate d [...] by glucometer (mas s/volume) 192 mg/dL 70-110 [id number] - 03/09/19 12:50 Serum or plasma urea nitrogen measurement (mass/volume ) 20 mg/dL 7-18 Serum or plasma creatinine measurement (mass/volume) 1.26 mg/dL 0.60-1.30 Serum or plasma urea nitrogen/creatinine mass ratio 16 NRG Serum or plasma creatinine measurement w ith calculation of estimated glomerular filtration rate 43 [facility] [id number] - 03/31/19 11:11 Serum or plasma urea nitrogen measurement (mass/volume ) 23 mg/dL 7-18 Serum or plasma creatinine measurement (mass/volume) 1.04 mg/dL 0.60-1.30 Serum or plasma urea nitrogen/creatinine mass ratio 22 NRG Serum or plasma creatinine measurement w ith calculation of estimated glomerular filtration rate 54 [facility] - 06/01/19 15:30 GLUCOSE 297 mg/dL 65-139 UREA NITROGEN (BUN) 21 mg/dL 7-25 CREATININE 1.25 mg/dL 0.50-0.99 eGFR NON-AFR. SWISS 46 mL/min/1.73m2 > OR = 60 eGFR [...] 0.0 10*3/uL 0.0-0.1 Comprehensive metabolic panel - 07/20/19 16:33 Serum or plasma sodium measurement (moles/volume) 139 mmol/L 135-145 Serum or plasma potassium measurement (moles/volume) 4.3 mmol/L 3.6-5.0 Serum or plasma chloride measurement (moles/volume) 103 mmol/L 98-107 Carbon dioxide 20 mmol/L 21-32 Serum or plasma anion gap determination (moles/volume) 16 mmol/L 5-14 Serum or plasma urea nitrogen measurement (mass/volume ) 46 mg/dL 7-18 Serum or plasma creatinine measurement (mass/volume) 1.57 mg/dL 0.60-1.30 Serum or plasma urea nitrogen/creatinine mass ratio 29 NRG Serum or plasma creatinine measurement w ith calculation of estimated glomerular filtration rate 33 NRG Serum or plasma glucose measurement (mass/volume) 209 mg/dL 70-105 Serum or plasma calcium measurement (mass/volume) 8.8 mg/dL 8.5-10.1 Serum or plasma total bilirubin measurement (mass/volu me) 0.3 mg/dL 0.1-1.0 Serum or plasma alkaline phosphatase shereen surement (enzymatic activity/volume) 70 U/L 40-136 Serum or plasma aspartate aminotransfera se measurement (enzymatic activity/volume) 25 U/L 5-34 Serum or plasma alanine aminotransferase measurement (enzymatic activity/volume) 18 U/L 0-55 Serum or plasma protein measurement (mass/volume) 6.5 g/dL 6.4-8.2 Serum or plasma albumin measurement (mass/volume) 3.6 g/dL 3.2-4.5 CALCIUM CORRECTED 9.1 mg/dL 8.5-10.1 TROPONIN I FS - 07/20/19 16:33 TROPONIN I FS < 0.30 <0.30 PROBNP FS - 07/20/19 16:33 PROBNP FS 2111.0 pg/mL <75.0 Blood CBC with ordered manual differenti al panel - 07/20/19 17:10 Blood leukocytes automated count (number/volume) 11.1 10*3/uL 4.3-11.0 Blood erythrocytes automated count (number/volume) 1.39 10*6/uL 4.35-5.85 Venous blood hemoglobin measurement (mass/volume) 3.5 g/dL 11.5-16.0 Blood hematocrit (volume fraction) 13 % 35-52 Automated erythrocyte mean corpuscular volume 90 [ foz_us] 80-99 Automated erythrocyte mean corpuscular h emoglobin (mass per erythrocyte) 25 pg 25-34 Automated erythrocyte mean corpuscular h emoglobin concentration measurement (mass/volume) 28 g/dL 32-36 Automated erythrocyte distribution width ratio 15. 9 % 10.0- 14.5 Automated blood platelet count (count/volume) 189 10*3/uL 130-400 Automated blood platelet mean volume measurement 11.2 [foz_us] 7.4-10.4 Automated blood neutrophils/100 leukocytes 83 [...] Status Pt. Type Provider Facility Loc./Unit Complaint [id number] 07/10/2016 11:07:00 Document Registration [id number] 06/01/2014 14:09:00 06/01/2014 23:59: 59 CLS Outpatient GEE AMADO MD [id number] 04/30/2014 13:56:00 04/30/2014 23:59: 59 CLS Outpatient GEE AMADO MD [id number] 03/29/2014 12:12:00 03/29/2014 23:59: 59 CLS Outpatient GEE AMADO MD [id number] 03/23/2014 13:24:00 03/23/2014 23:59: 59 CLS Outpatient GEE AMADO MD [id number] 03/06/2014 13:45:00 03/06/2014 23:59: 59 CLS Outpatient LALITO TERRAZAS APRN [id number] 02/20/2014 14:47:00 02/20/2014 23:59: 59 CLS Outpatient GEE AMADO MD [id number] 02/06/2014 16:34:00 02/06/2014 23:59: 59 CLS Outpatient GEE AMADO MD [id number] 12/14/2013 00:00:00 12/14/2013 23:59: 59 CLS Outpatient IBAN DAVALOS DDS [id number] 10/23/2013 09:58:00 10/23/2013 23:59: 59 CLS Outpatient VAN LAWRENCE APRN [id number] 09/08/2013 09:39:00 09/08/2013 23:59: 59 CLS Outpatient JUSTICE WADE DO [id number] 07/28/2013 08:44:00 07/28/2013 23:59: 59 CLS Outpatient JUSTICE WADE DO [id number] 06/06/2013 15:27:00 06/06/2013 23:59: 59 CLS Outpatient JOELLE DAVALOS DDS [id number] 05/30/2013 09:38:00 05/30/2013 23:59: 59 CLS Outpatient GEE AMADO MD [id number] 04/25/2013 08:38:00 04/25/2013 23:59: 59 CLS Outpatient IBAN DAVALOS DDS [id number] 03/05/2013 00:00:00 03/05/2013 23:59: 59 CLS Outpatient JUSTICE WADE DO [id number] 02/24/2013 07:56:00 02/24/2013 23:59: 59 CLS Outpatient GEE AMADO MD [id number] 01/30/2013 08:00:00 01/30/2013 23:59: 59 CLS Outpatient SUSANNAH CHEN IBAN Phillip [id number] 12/19/2012 00:00:00 12/19/2012 23:59: 59 CLS Outpatient SUSANNAH CHEN IBAN Phillip [id number] 05/24/2012 09:24:00 05/24/2012 23:59: 59 CLS Outpatient GEE AMADO MD [id number] 04/25/2012 09:57:00 04/25/2012 23:59: 59 CLS Outpatient GEE AMADO MD [id number] 04/13/2012 09:38:00 04/13/2012 23:59: 59 CLS Outpatient G[place] AMADO MD [id number] 01/14/2012 14:34:00 01/14/2012 23:59:5 9 CLS Outpatient GEE AMADO MD [id number] 11/23/2012 10:51:00 Document Registration [id number] 08/05/2012 09:03:00 Document Registration [id number] 04/17/2019 08:13:00 23:59:59 CLS Outpatient LETTY WILLAMS APRN [facility] RT DYSPNEA,ALLERGI C RHINITIS,COUGH,COPD [id number] 03/31/2019 11:00:00 23:59:59 CLS Outpatient ILANA SANTAMARIA MD [facility] RAD ATHEROSCLEROSIS [id number] 03/09/2019 12:45:00 23:59:59 CLS Outpatient ILANA SANTAMARIA MD [facility] LAB 440.70 [id number] 03/02/2019 12:20:00 23:59:59 CLS Outpatient ILANA SANTAMARIA MD [facility] RAD CLAUDICATION [id number] 02/17/2019 14:50:00 14:00:00 DIS Inpatient ZACK ESCOBEDO DO, [facility] IRF ENCEPHALOPATHY [id number] 02/05/2019 08:41:00 10:25:00 DIS Emergency ALEXA SOLIZ MD [facility] ER FS PT FOUND UNRESPONSIVE [id number] 01/13/2019 11:15:00 13:35:00 DIS Inpatient ZACK ESCOBEDO DO, V [facility] IRF DEBILITY [id number] 01/10/2019 08:09:00 11:15:00 DIS Inpatient ZACK ESCOBEDO DO, V [facility] 4TH SOA, HEART FAILURE, DM2 , OBESITY, CKD [id number] 07/21/2018 19:26:00 14:57:00 DIS Inpatient Jaime GARSIA MD [facility] ICU AFIB,BRADYCARDIA,CARDIO GENIC SHOCK [id number] 07/11/2018 21:48:00 02:40:00 DIS Emergency MICHAEL DE LA GARZA MD [facility] ER FS FEVER,SOB [id number] 05/31/2018 00:10:00 23:59:59 CLS Preadmit BOOM MILLER MD [facility] LAB ENCOUNTER FOR MONITORIN G COUMADIN THERAPY [id number] 03/29/2018 12:33:00 00:01:00 DIS Outpatient BOOM MILLER MD [facility] LAB ENCOUNTER FOR MONITORIN G COUMADIN THERAPY [id number] 03/09/2018 08:29:00 17:05:00 DIS Outpatient BOOM MILLER MD [facility] CATH CP,CAD,PAF,HTN [id number] 02/05/2018 16:36:00 23:59:59 CLS Outpatient BOOM MILLER MD [facility] LAB PT/INR LAB [id number] 09/01/2017 11:42:00 23:59:59 CLS Preadmit GEE AMADO MD [facility] RAD MEDICARE ANNUAL WELLNES S VISIT,INITIAL [id number] 06/28/2017 00:42:00 23:59:59 CLS Preadmit BOOM MILLER MD [facility] LAB I48.91 [id number] 06/15/2017 10:55:00 018 00:01:00 DIS Outpatient BOOM MILLER MD [facility] LAB I48.91 [id number] 04/03/2017 19:54:00 018 07:02:00 DIS Outpatient BOOM MILLER MD [facility] SLEEP G47.33 OBSTRUCTIVE SLEE P APNEA [id number] 03/24/2017 08:12:00 018 23:59:59 CLS Outpatient BOOM MILLER MD [facility] ATRIAL FIBRILLATION [id number] 03/05/2017 08:13:00 017 13:30:00 DIS Outpatient BOOM MILLER MD [facility] ABN STRESS TEST, CAD, H TN [id number] 03/01/2017 07:44:00 017 23:59:59 CLS Outpatient BOOM MILLER MD [facility] CARD AORTIC VALVE SCLEROSIS [id number] 02/22/2017 11:38:00 017 23:59:59 CLS Outpatient BOOM MILLER MD [facility] CARD I35.8 AORTIC VALVE SCLE ROSIS [id number] 09/11/2015 07:51:00 016 23:59:59 CLS Outpatient ILANA SANTAMARIA MD [facility] RAD STENOSIS [id number] 08/09/2015 17:28:00 016 23:59:59 CLS Outpatient XANDER ESQUIVEL MD [facility] RAD CERVICAL RADICULOPATHY [id number] 03/13/2015 07:10:00 015 14:20:00 DIS Outpatient BOOM MILLER MD [facility] CATH HTN,HLP,CAD,CP [id number] 02/27/2015 11:59:00 015 23:59:59 CLS Outpatient BOOM MILLER MD [facility] CARD HTN,HLD,CPS [id number] 10/31/2013 10:27:00 014 23:59:59 CLS Outpatient VAN LAWRENCE PLASTERER STUCCO [facility] RAD SCREENING [id number] 08/28/2013 08:36:00 014 17:20:00 DIS Outpatient PAUL MARAVILLA, BOOM French [facility] CATH CAD,CP,HLP,HTN,DM [id number] 08/18/2013 12:27:00 014 23:59:59 CLS Outpatient HELENE COTTO [facility] CARD CAD,CP,HLP, HTN,DM [id number] 10/26/2012 12:11:00 013 14:26:00 DIS Emergency CURLY MARAVILLA, RK Phillip [facility] ER ELEVATED BP [id number] 07/20/2019 16:48:00 Document Registration [id number] 07/19/2019 17:18:[address] Outpatient ENMA PETERS APRN [facility] RAD FS POSS PHENOMENA [id number] 08/07/2015 09:49:00 Document Registration [id number] 11/13/2011 14:00:00 Document Registration [id number] 06/01/2019 15:00:00 06/01/2019 23:59: 59 CLS Outpatient INGRIS MARAVILLA[facility] [id number] 06/01/2019 15:00:00 Document Registration [id number] 08/29/2018 15:45:00 Document Registration [id number] 08/18/2018 09:00:00 Document Registration [id number] 01/17/2018 13:40:00 Document Registration
--- NOTE | 2019-07-20 19:14 | NUR ---
PER EMS UNIT OF BLOOD FINISHED EN ROUTE TO [facility] AT 1835.
[2019-07-20] MEDS ORDERED: FUROSEMIDE 40 MG/4 ML INJ (LASIX) IVP ONE (19:45)
[2019-07-20 19:58] LABS: BILIRUBIN,URINE NEGATIVE (NEGATIVE); CLARITY,URINE CLEAR; COLOR,URINE YELLOW; GLUCOSE, URINE (UA) NEGATIVE (NEGATIVE); KETONES,URINE NEGATIVE (NEGATIVE); LEUKOCYTE ESTERASE ,URINE NEGATIVE (NEGATIVE); NITRITE,URINE NEGATIVE (NEGATIVE); PH,URINE 5.5 (5-9); PROTEIN,URINE TRACE (NEGATIVE)
[2019-07-20 20:17] LABS: AMORPHOUS SEDIMENT,UR LARGE AMOR URATES /LPF; BACTERIA,URINE NEGATIVE /HPF; HYALINE CASTS, URINE 0-2 /LPF; SQUAMOUS EPITHELIAL CELL,UR 0-2 /HPF
[2019-07-20] MEDS: HYDROcodone/APAP 10 MG/325 MG (LORTAB) TAB PO PRN (20:34)
[2019-07-20] MEDS: inSUlin ASPART (NovoLOG) 1 UNIT/0.01 ML (CHARGE PER UNIT) SC SCH (20:35)
--- NOTE | 2019-07-20 21:15 | Consultation - Surgery ---
History of Present Illness History of Present Illness Patient Consulted On(lis/time) 07/20/19 21:07 Date Seen by Provider: Jul 20, 2019 Time Seen by Provider: 21:08 History of Present Illness consult requested by Dr. Hobbs for fall, anemia Patient is a 64 year old female who had became short of breath and had a fall this morning. She was walking through a path in her house and fell striking the right side of her face. She thinks she may have had a brief loss of consciousness. Patient states that her is a hoarder and paths are created to walk to different area. Patient states she saw her Yesterday for her shortness of breath. She was found to be severely anemic with hgb 3.5 at [facility]. Patient states now she is having slight discomfort in the left upper quadrant of her abdomen. Nothing makes better or worse. Mild pain. No radiation. Patient states earlier her right eye was swollen, and the swelling has gone down slightly to where now she can see through it. Denies fever sweats chills or chest pain. Has no neck pain at this time and full range of motion without tenderness. Patient on anticoagulation on a regular basis and did have significant bloody nose. Is currently being transfuse prbc. Ct scan head and maxillofacial: HEAD: No intracerebral hemorrhage or acute appearing pathology. No calvarial fracture deformity. CT FACIAL BONES: Medial right orbital fracture with some hemorrhagic thickening of the right medial rectus and preseptal soft tissue swelling. Right-sided paranasal hemo-sinus with intact orbital floors and rims. No other facial fracture can be identified. Allergies and Home Medications Allergies Coded Allergies: morphine (Verified Adverse Reaction, Severe, hallucination, 07/12/18) Home Medications Amlodipine Besylate 10 Mg Tablet, 10 MG PO DAILY, (Reported) Aspirin 81 Mg Tablet.dr, 81 MG PO DAILY, (Reported) Atorvastatin Calcium 40 Mg Tablet, 40 MG PO DAILY, (Reported) Cinnamon Bark 500 Mg Capsule, 500 MG PO BID, (Reported) Cyclobenzaprine HCl 10 Mg Tablet, 20 MG PO BID PRN for MUSCLE SPASMS, (Reported) Doxazosin Mesylate 1 Mg Tablet, 1 MG PO HS Prescribed by: ZACK ESCOBEDO on 02/23/19 9398 Dulaglutide 0.75 Mg/0.5 Ml Pen.injctr, 0.75 MG SC Mandujano, (Reported) Fenofibrate,Micronized 134 Mg Capsule, 134 MG PO HS, (Reported) Fluticasone/Salmeterol 12 Gm Hfa.aer.ad, 2 PUFF IH BID@ Prescribed by: ZACK ESCOBEDO on 02/23/192227 Gabapentin 600 Mg Tablet, 600 MG PO TID, (Reported) Hydrocodone Bit/Acetaminophen 1 Each Tablet, 1 EA PO TID PRN for PAIN-MODERATE (5-7), (Reported) Insulin Aspart 100 Unit/1 Ml Susp, 10 UNIT SQ TIDAC, (Reported) Insulin Determir 1,000 Units/10 Ml Soln, 15 UNITS SQ HS, (Reported) Ipratropium/Albuterol Sulfate 3 Ml Ampul.neb, 3 ML IH BID PRN for SHORTNESS OF BREATH, (Reported) Isosorbide Mononitrate 60 Mg Tab, 60 MG PO DAILY, (Reported) Magnesium Oxide 400 Mg Tablet, 400 MG PO HS, (Reported) Metformin HCl 500 Mg Tab.er.24h, 500 MG PO BID, (Reported) Metoprolol Succinate 25 Mg Tab.er.24h, 25 MG PO DAILY Prescribed by: ZACK ESCOBEDO on 02/23/192227 Multivitamin-Min/Iron/FA/Vit K 1 Each Tablet, 1 TAB PO DAILY, (Reported) [place]-3/Dha/Epa/Fish Oil 1 Each Capsule, 1,000 MG PO DAILY, (Reported) Pantoprazole Sodium 40 Mg Tablet.dr, 40 MG PO DAILY, (Reported) Primidone 50 Mg Tablet, 50 MG PO HS, (Reported) Rivaroxaban 20 Mg Tablet, 20 MG PO DAILY, (Reported) Sennosides/Docusate Sodium 1 Each Tablet, 1 TAB PO DAILY PRN for CONSTIPATION- 6TH LINE, (Reported) Spironolactone 25 Mg Tablet, 25 MG PO DAILY Prescribed by: ZACK ESCOBEDO on 02/23/192227 Patient Home Medication List Home Medication List Reviewed: Yes Past Aczhjzi-Xzoukq-Glyvnb Hx Patient Social History Alcohol Use: Denies Use Recreational Drug Use: No Smoking Status: Former Smoker Former Smoker, Quit: Mar 24, 1997 Type Used: Cigarettes 2nd Hand Smoke Exposure: No Recent Foreign Travel: No Contact w/Someone Who Travel: No Recent Infectious Disease Expo: No Recent Hopitalizations: Yes Immunizations Up To Date Tetanus Booster (TDap): Unknown PED Vaccines UTD: Yes Date of Pneumonia Vaccine: Mar 05, 2013 Date of Influenza Vaccine: Jan 12, 2019 Seasonal Allergies Seasonal Allergies: No Surgeries History of Surgeries: Yes (neck and back surgeries) Surgeries: Coronary Stent, Gallbladder, Hysterectomy, Orthopedic Respiratory History of Respiratory Disorde: Yes Respiratory Disorders: Pneumonia, Pulmonary Embolism, Sleep Apnea, COPD Cardiovascular History of Cardiac Disorders: Yes (stents-has loop recorder placement) Cardiac Disorders: Atrial Fibrillation, Coronary Artery Disease, High Cholesterol, Hypertension Neurological History of Neurological Disord: No Reproductive System Hx Reproductive Disorders: No Genitourinary History of Genitourinary Disor: No Genitourinary Disorders: Bladder Infection, Renal Failure Gastrointestinal History of Gastrointestinal Di: Yes Gastrointestinal Disorders: Gastroesophageal Reflux, Chronic Constipation, Pancreatitis Musculoskeletal History of Musculoskeletal Dis: Yes (CHRONIC HIP PAIN BILATERALLY, FX NECK) Musculoskeletal Disorders: Arthritis Endocrine History of Endocrine Disorders: Yes Endocrine Disorders: Diabetes, Insulin dep, Diabetes, Non-Insulin dep HEENT History of HEENT Disorders: No Loss of Vision: Denies Hearing Impairment: Denies Cancer History of Cancer: No Psychosocial History of Psychiatric Problem: Yes Behavioral Health Disorders: Anxiety Integumentary History of Skin or Integumenta: No Blood Transfusions History of Blood Disorders: No Reviewed Nursing Assessment Reviewed/Agree w Nursing PMH: Yes Family Medical History Significant Family History: Diabetes, Hypertension Family Medial History: Patient reports no known family medical history. Review of Systems-General Constitutional: dizziness, weakness EENTM: eye pain (right), epistaxis Respiratory: short of breath Cardiovascular: No chest pain Gastrointestinal: LUQ Genitourinary: no symptoms reported Musculoskeletal: No back pain, No joint pain Skin: No change in color, No change in hair/nails Psychiatric/Neurological: Denies Anxiety, Denies Depressed, Denies Emotional Problems Physical Exam-General Problems Physical Exam Vital Signs Vital Signs - First Documented 07/20/19 07/20/19 16:30 18:20 Temp 36.7 Pulse 105 Resp 30 B/P (MAP) 122/64 (83) Pulse Ox 100 O2 Delivery Nasal Cannula O2 Flow Rate 2.00 Capillary Refill : Less Than 3 Seconds General Appearance: WD/WN, no apparent distress HEENT: PERRL/EOMI, other (right periorbital swelling/bruising) Neck: non-tender, full range of motion, supple, normal inspection Respiratory: chest non-tender, no respiratory distress, no accessory muscle use Cardiovascular: regular rate, rhythm Gastrointestinal: soft, tenderness (luq) Rectal: deferred Back: no CVA tenderness Extremities: non-tender, normal inspection, no pedal edema, no calf tenderness Neurologic/Psychiatric: 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 specialist II-XII nml as tested, no motor/sensory deficits, alert, normal mood/affect, oriented x 3 Skin: normal color, warm/dry Lymphatic: no adenopathy Data Review Labs Laboratory Tests 07/20/19 16:33: White Blood Count 10.2, Red Blood Count 1.38L, Hemoglobin 3.5*L, Hematocrit 12*L , Mean Corpuscular Volume 90, Mean Corpuscular Hemoglobin 25, Mean Corpuscular Hemoglobin Concent 28L, Red Cell Distribution Width 15.8H, Platelet Count 185, Mean Platelet Volume 10.9H, Neutrophils (%) (Auto) 83H, Lymphocytes (%) (Auto) 10L, Monocytes (%) (Auto) 5, Eosinophils (%) (Auto) 1, Basophils (%) (Auto) 0, Neutrophils # (Auto) 8.5H, Lymphocytes # (Auto) 1.1, Monocytes # (Auto) 0.5, Eosinophils # (Auto) 0.0, Basophils # (Auto) 0.0, Sodium Level 139, Potassium Level 4.3, Chloride Level 103, Carbon Dioxide Level 20L, Anion Gap 16H, Blood Urea Nitrogen 46H, Creatinine 1.57H, Estimat Glomerular Filtration Rate 33, BUN/Creatinine Ratio 29, Glucose Level 209H, Calcium Level 8.8, Corrected Calcium 9.1, Total Bilirubin 0.3, Aspartate Amino Transf (AST/SGOT) 25, Alanine Aminotransferase (ALT/SGPT) 18, Alkaline Phosphatase 70, Troponin I < 0.30, Pro-B-Type Natriuretic Peptide 2111.0H, Total Protein 6.5, Albumin 3.6 07/20/19 17:10: White Blood Count 11.1H, Red Blood Count 1.39L, Hemoglobin 3.5*L, Hematocrit 13*L, Mean Corpuscular Volume 90, Mean Corpuscular Hemoglobin 25, Mean Corpuscular Hemoglobin Concent 28L, Red Cell Distribution Width 15.9H, Platelet Count 189, Mean Platelet Volume 11.2H, Neutrophils (%) (Auto) 83H, Lymphocytes (%) (Auto) 10L, Monocytes (%) (Auto) 5, Eosinophils (%) (Auto) 1, Basophils (%) (Auto) 0, Neutrophils # (Auto) 9.3H, Lymphocytes # (Auto) 1.2, Monocytes # (Auto) 0.6, Eosinophils # (Auto) 0.0, Basophils # (Auto) 0.0, Neutrophils % (Manual) 81, Lymphocytes % (Manual) 13, Monocytes % (Manual) 0, Eosinophils % (Manual) 0, Basophils % (Manual) 0, Band Neutrophils 3, Nucleated Red Blood Cells 2, Atypical Lymphocytes 3, Polychromasia SLIGHT, Hypochromasia MARKED, Anisocytosis SLIGHT 07/20/19 19:26: Urine Color YELLOW, Urine Clarity CLEAR, Urine pH 5.5, Urine Specific [place] 1.020, Urine Protein TRACEH, Urine Glucose (UA) NEGATIVE, Urine Ketones NEGATIVE, Urine Nitrite NEGATIVE, Urine Bilirubin NEGATIVE, Urine Urobilinogen 0.2, Urine Leukocyte Esterase NEGATIVE, Urine RBC (Auto) NEGATIVE, Urine RBC NONE, Urine WBC NONE, Urine Squamous Epithelial Cells 0-2, Urine Crystals PRESENTH, Urine Amorphous Sediment LARGE LAUREN URATESH, Urine Bacteria NEGATIVE, Urine Casts PRESENT, Urine Hyaline Casts 0-2H, Urine Mucus NEGATIVE, Urine Culture Indicated NO 07/20/19 19:35: Hemoglobin 5.0#*L, Hematocrit 16*L 07/20/19 20:17: Glucometer 397H Assessment/Plan Assessment/Plan Assessment/Plan severe anemia right meidal orbital fracture right paranasal hemo-sinus fall luq abdominal pain Patient being transfused prbc follow hgb and transfuse blood products as needed. neurochecks obtain ct abd/pelvis with contrast npo hold anticoagulation will follow. Clinical Quality Measures DVT/VTE Risk/Contraindication: Risk Factor Score Per Nursin RFS Level Per Nursing on Admit: 3=High DAMON DONOVAN DO Jul 20, 2019 21:15
[2019-07-20] MEDS ORDERED: NS 100 ML (IVPB) BAG IV ONE (21:45)
[2019-07-20] MEDS ORDERED: IOHEXOL 350 MG/ML 100 ML (OMNIPAQUE 350) VIAL IV ONE (21:45)
[2019-07-20] MEDS ORDERED: HOLD METFORMIN - RECEIVED CONTRAST 20 ML VIAL IV SCH (21:45)
[2019-07-20] MEDS ORDERED: CATHETER FLUSH 10 ML SYR IV PRN (21:45)
[2019-07-21] VITALS (31 sets, daily range): BP systolic 95–169; BP diastolic 61–86
[2019-07-21 01:50] LABS: BASOPHILS % (AUTO) 0 % (0-10); EOSINOPHILS # (AUTO) 0.1 10^3/uL (0.0-0.3); EOSINOPHILS % (AUTO) 1 % (0-10); LYMPHOCYTES # (AUTO) 1.8 X 10^3 (1.0-4.0); LYMPHOCYTES % (AUTO) 16 % (12-44); MEAN CORPUSCULAR HEMOGLOBIN 27 PG (25-34); MEAN CORPUSCULAR HGB CONC 31 G/DL (32-36); MEAN CORPUSCULAR VOLUME 88 FL (80-99); MEAN PLATELET VOLUME 10.8 FL (7.4-10.4); MONOCYTES # (AUTO) 0.6 X 10^3 (0.0-1.0); MONOCYTES % (AUTO) 6 % (0-12); NEUTROPHILS # (AUTO) 8.4 X 10^3 (1.8-7.8); NEUTROPHILS % (AUTO) 77 % (42-75); PLATELET COUNT 193 10^3/uL (130-400); RED CELL DISTRIBUTION WIDTH 14.9 % (10.0-14.5); WHITE BLOOD COUNT 10.9 10^3/uL (4.3-11.0)
[2019-07-21 01:56] LABS: HEMATOCRIT 19 % (35-52); HEMOGLOBIN 5.9 G/DL (11.5-16.0)
[2019-07-21 02:08] LABS: CALCIUM 8.2 MG/DL (8.5-10.1); CREATININE SERUM 1.77 MG/DL (0.60-1.30); MAGNESIUM 2.2 MG/DL (1.6-2.4); PHOSPHORUS 4.2 MG/DL (2.3-4.7); POTASSIUM 4.6 MMOL/L (3.6-5.0)
[2019-07-21] MEDS ORDERED: NS IV 500 ML 500 ML IV SCH ×3 (02:13→15:45)
--- NOTE | 2019-07-21 02:15 | NUR ---
Patient's hemoglobin 5.9 after second unit of blood. Dr. Mars at [facility] informed. Will place order for a second unit.
--- NOTE | 2019-07-21 04:57 | Pulmonary Consultation ---
History of Present Illness History of Present Illness Date Seen by Provider: July 21, 2019 Time Seen by Provider: 04:52 Date of Admission History of Present Illness 64yo presented to ed secondary to worsening SOB and s/p unwitnessed fall striking right side of face. Pt does believe she lost consciousness. Pt was found to be severely anemic with Hb of 3.5. Denies fever sweats chills or chest pain. Has no neck pain at this time and full range of motion without tenderness. Patient on anticoagulation. Allergies and Home Medications Allergies Coded Allergies: morphine (Verified Adverse Reaction, Severe, hallucination, 07/12/18) Home Medications Albuterol Sulfate 18 Gm Hfa.aer.ad, 2 PUFF PO Q6H PRN for SHORTNESS OF BREATH, (Reported) Amlodipine Besylate 10 Mg Tablet, 10 MG PO DAILY, (Reported) Aspirin 81 Mg Tablet.dr, 81 MG PO DAILY, (Reported) Atorvastatin Calcium 40 Mg Tablet, 40 MG PO HS, (Reported) Calcium Citrate/Vitamin D2 1 Each Tablet, 1 EACH PO DAILY, (Reported) Cinnamon Bark 500 Mg Capsule, 500 MG PO BID, (Reported) Cyclobenzaprine HCl 10 Mg Tablet, 20 MG PO BID PRN for MUSCLE SPASMS, (Reported) Doxazosin Mesylate 1 Mg Tablet, 1 MG PO HS, (Reported) Dulaglutide 0.75 Mg/0.5 Ml Pen.injctr, 0.75 MG SC Mand[place]ano, (Reported) Fenofibrate,Micronized 134 Mg Capsule, 134 MG PO HS, (Reported) Fluticasone/Salmeterol 12 Gm Hfa.aer.ad, 2 PUFF IH BID@ Prescribed by: ZACK ESCOBEDO on 02/23/19 2228 Gabapentin 600 Mg Tablet, 600 MG PO BID, (Reported) Hydrocodone Bit/Acetaminophen 1 Each Tablet, 1 EA PO TID PRN for PAIN-MODERATE (5-7), (Reported) Insulin Aspart 100 Unit/1 Ml Susp, UNIT SQ TIDAC, (Reported) USES PER SLIDING SCALE Insulin Determir 1,000 Units/10 Ml Soln, 10 UNIT SQ HS Prescribed by: ZACK ESCOBEDO on 07/26/19 0945 Ipratropium/Albuterol Sulfate 3 Ml Ampul.neb, 3 ML IH BID PRN for SHORTNESS OF BREATH, (Reported) Isosorbide Mononitrate 60 Mg Tab, 60 MG PO DAILY, (Reported) Magnesium Oxide 400 Mg Tablet, 400 MG PO HS, (Reported) Metformin HCl 500 Mg Tab.er.24h, 500 MG PO BID WITH MEALS, (Reported) Metoprolol Succinate 25 Mg Tab.er.24h, 25 MG PO DAILY, (Reported) Multivitamin-Min/Iron/FA/Vit K 1 Each Tablet, 1 TAB PO DAILY, (Reported) [place]-3/Dha/Epa/Fish Oil 1 Each Capsule, 1,000 MG PO DAILY, (Reported) Pantoprazole Sodium 40 Mg Tablet.dr, 40 MG PO BID Prescribed by: ZACK ESCOBEDO on 07/26/19944 Potassium Gluconate 90 Mg Tablet, 90 MG PO DAILY, (Reported) Primidone 50 Mg Tablet, 50 MG PO HS, (Reported) Sennosides/Docusate Sodium 1 Each Tablet, 2 TAB PO HS, (Reported) Spironolactone 25 Mg Tablet, 25 MG PO DAILY, (Reported) Sucralfate 1 Gm Tablet, 1 GM PO ACHS Prescribed by: ZACK ESCOBEDO on 07/26/19944 Torsemide 10 Mg Tablet, 10 MG PO DAILY, (Reported) Turmeric/Turmeric Root Extract 1 Each Capsule, 2 EACH PO HS, (Reported) Past Dixvevc-Waekmp-Gmfoiw Hx Past Med/Social Hx: Reviewed Nursing Past Med/Soc Hx Patient Social History Alcohol Use: Denies Use Recreational Drug Use: No Smoking Status: Former Smoker Type Used: Cigarettes Former Smoker, Quit: Mar 24, 1997 2nd Hand Smoke Exposure: No Recent Foreign Travel: No Contact w/Someone Who Travel: No Recent Infectious Disease Expo: No Recent Hopitalizations: Yes Physical Abuse: No Sexual Abuse: No Mistreated: No Fear: No Immunizations Up To Date Tetanus Booster (TDap): Unknown PED Vaccines UTD: Yes Date of Pneumonia Vaccine: Mar 05, 2013 Date of Influenza Vaccine: Jan 12, 2019 Seasonal Allergies Seasonal Allergies: No Past Medical History Surgeries: Yes (neck and back surgeries) Coronary Stent, Gallbladder, Hysterectomy, Orthopedic Respiratory: Yes Pneumonia, Pulmonary Embolism, Sleep Apnea, COPD Currently Using CPAP: Yes Cardiac: Yes (stents-has loop recorder placement) Atrial Fibrillation, Coronary Artery Disease, High Cholesterol, Hypertension Neurological: No Reproductive Disorders: No Genitourinary: No Bladder Infection, Renal Failure Gastrointestinal: Yes Gastroesophageal Reflux, Chronic Constipation, Pancreatitis Musculoskeletal: Yes (CHRONIC HIP PAIN BILATERALLY, FX NECK) Arthritis Endocrine: Yes Diabetes, Insulin dep, Diabetes, Non-Insulin dep HEENT: No Loss of Vision: Denies Hearing Impairment: Denies Cancer: No Psychosocial: Yes Anxiety Integumentary: No Blood Disorders: No Family Medical History Patient reports no known family medical history. Diabetes, Hypertension Review of Systems Time Seen by Provider: 05:00 Sepsis Event Evaluation Height, Weight, BMI Height: 5'4.00" Weight: 219lbs. 1.0oz. 99.071688ji; 37.89 BMI Method:Stated Exam Exam Vital Signs Date Time Temp Pulse Resp B/P (MAP) Pulse Ox O2 Delivery O2 Flow Rate FiO2 07/21/19 04:04 36.8 92 13 135/68 97 Nasal Cannula 2.00 07/21/19 04:03 98 Nasal Cannula 2.00 07/21/19 04:00 38.0 07/21/19 03:49 37.0 92 16 124/61 97 Nasal Cannula 2.00 07/21/19 03:00 95 19 131/78 (95) 98 Nasal Cannula 2.00 07/21/19 02:00 90 10 133/78 (96) 97 Nasal Cannula 2.00 07/21/19 01:00 92 07/21/19 01:00 92 11 146/84 (104) 98 Nasal Cannula 2.00 07/21/19 00:00 94 12 155/86 (109) 97 Nasal Cannula 2.00 07/21/19 00:00 98 Nasal Cannula 2.00 07/21/19 00:00 36.6 07/20/19 23:21 36.6 96 22 132/71 96 Nasal Cannula 3.00 07/20/19 23:00 96 21 139/70 (93) 97 Nasal Cannula 2.00 07/20/19 22:00 100 27 138/62 (87) 96 Nasal Cannula 2.00 07/20/19 20:45 98 20 138/80 (99) 90 Nasal Cannula 2.00 07/20/19 20:27 37.0 97 18 146/68 91 Nasal Cannula 3.00 07/20/19 20:15 98 14 146/68 (94) 92 Nasal Cannula 2.00 07/20/19 20:12 37.0 98 14 142/67 91 Nasal Cannula 2.00 07/20/19 20:00 145/68 07/20/19 19:45 98 13 132/63 (86) 91 Nasal Cannula 2.00 07/20/19 19:30 Nasal Cannula 2.00 07/20/19 19:30 99 8 139/73 (95) 96 Nasal Cannula 2.00 07/20/19 19:20 37.1 07/20/19 19:15 96 26 145/72 (96) 94 Nasal Cannula 2.00 07/20/19 19:00 98 16 145/68 (93) 95 Nasal Cannula 2.00 07/20/19 19:00 100 07/20/19 18:50 37.3 96 16 136/75 (95) 95 Nasal Cannula 2.00 07/20/19 18:20 37.1 95 30 120/48 100 Nasal Cannula 2.00 07/20/19 18:05 37.5 95 37.1 07/20/19 16:30 36.7 105 30 122/64 (83) 100 I & O 07/21/19 07:00 Intake Total 1200 ml Output Total 1400 ml Balance -200 ml Height & Weight Height: 5'4.00" Weight: 219lbs. 1.0oz. 99.451520mu; 37.89 BMI Method:Stated General Appearance: No Apparent Distress, WD/WN HEENT: PERRL/EOMI, Pharynx Normal, Other (contusion/swelling around right eye) Neck: Full Range of Motion, Non Tender, Supple Respiratory: Lungs Clear, Normal Breath Sounds, No Accessory Muscle Use, No Respiratory Distress Cardiovascular: Regular Rate, Rhythm, No Edema, No Murmur Capillary Refill: Less Than 3 Seconds Gastrointestinal: soft, tenderness (luq) Extremity: Normal Capillary Refill, Normal Inspection, No Calf Tenderness, Pedal Edema (1+ b/l) Neurologic/Psychiatric: Alert, Oriented x3, Normal Mood/Affect Skin: Normal Color, Warm/Dry Results Lab Laboratory Tests 07/20/19 16:33 07/20/19 17:10 07/20/19 19:35 07/21/19 01:42 Assessment/Plan Assessment/Plan Severe Anemia -S/p 3 units of PRBC -Check Coags -Occult stool pending -Pt takes xeralto at home -- currently on hold -Start protonix 40mg IV BID ARF -Transfuse -Start LR at 50cc/hr Right orbital fracture -Surgery following COPD with home oxygen at 3 liters CAD with hx of stent placement Obesity with JORGE LUIS and probable OHS -pt is on CPAP therapy DM II ELIZABETH FRANCISCO DO July 21, 2019 04:57
[2019-07-21 05:03] LABS: INR 1.2 (0.8-1.4); PROTHROMBIN TIME PATIENT 15.7 SEC (12.2-14.7)
[2019-07-21] MEDS: MAGNESIUM 1 GM/100 ML IVPB 100 ML IV SCH (05:34)
[2019-07-21] MEDS: POTASSIUM CL 10MEQ/50ML IVPB 50 ML IV SCH (05:34)
[2019-07-21] MEDS: KCL 20 MEQ TAB (K-DUR) PO SCH (05:35)
[2019-07-21] MEDS ORDERED: LACTATED RINGERS 1,000 ML IV ONE (06:04)
[2019-07-21] MEDS: LACTATED RINGERS 1,000 ML IV SCH ×2 (06:21→22:41)
[2019-07-21] MEDS: inSUlin ASPART (NovoLOG) 1 UNIT/0.01 ML (CHARGE PER UNIT) SC SCH ×4 (06:25→20:49)
--- NOTE | 2019-07-21 06:47 | Diagnostic Imaging Report ---
CT ABDOMEN/PELVIS W TECHNIQUE: Multiple contiguous axial images were obtained through the abdomen and pelvis after administration of intravenous contrast. All CT scans use one or more of the following dose optimizing techniques: automated exposure control, MA and/or KvP adjustment based on a patient size and exam type, or iterative reconstruction. INDICATION: Fall, left upper quadrant pain. COMPARISON: CT chest from 04/17/2019 FINDINGS: Lower chest: Small bilateral pleural effusions are present. Patchy groundglass opacities throughout the lung bases with mosaic attenuation. Mild interlobular septal thickening. Peritoneum: No free intraperitoneal air or fluid. Liver and biliary system: Nodular liver is compatible with cirrhosis. No focal hepatic lesion or features of laceration. Cholecystectomy. No pathologic biliary duct dilatation. Spleen and Pancreas: No features of splenic laceration or subcapsular hematoma. Splenomegaly persists. The pancreas enhances normally without mass lesion or peripancreatic inflammatory changes. Adrenals: Normal. tract: The kidneys enhance normally without suspicious mass or obstruction. No features of renal injury. Urinary bladder is decompressed by Ratliff catheter. No features of bladder rupture. GI tract: Stomach is partially filled with fluid and air and there is no wall thickening. No bowel obstruction. No pericolonic inflammatory changes. Appendix is not seen with certainty. Vasculature and Lymph nodes: Normal caliber aorta. No abdominal or pelvic lymphadenopathy. Musculoskeletal: No concerning osseous lesion. No acute fracture in the lumbar spine. No fracture of the lower ribs. IMPRESSION: 1. No features of acute traumatic injury in the abdomen and pelvis. 2. Imaging features suggest congestive heart failure with mild pulmonary edema and small pleural effusions. 3. Cirrhosis. Small volume of ascites has resolved since CT chest of 04/17/2019. 4. Findings are in agreement with the preliminary report. Dictated by: Dictated on workstation # [id number]
--- NOTE | 2019-07-21 07:12 | Progress Note - Surgery ---
Subjective Date Seen by a Provider: July 21, 2019 Time Seen by a Provider: 07:09 Subjective/Events-last exam Currently being transfused prbc. Hgb up to 5.9 last check. no new complaints. denies n/v fever sweats chills or chest pain. still with luq abd pain. Objective Exam Vital Signs Date Time Temp Pulse Resp B/P (MAP) Pulse Ox O2 Delivery O2 Flow Rate FiO2 07/21/19 06:17 36.8 94 16 141/69 97 Nasal Cannula 2.00 07/21/19 06:00 92 13 139/74 (95) 96 Nasal Cannula 2.00 07/21/19 05:00 93 17 118/83 (95) 96 Nasal Cannula 2.00 07/21/19 04:04 36.8 92 13 135/68 97 Nasal Cannula 2.00 07/21/19 04:03 98 Nasal Cannula 2.00 07/21/19 04:00 37.0 07/21/19 04:00 92 26 135/68 (90) 97 Nasal Cannula 2.00 07/21/19 03:49 37.0 92 16 124/61 97 Nasal Cannula 2.00 07/21/19 03:00 95 19 131/78 (95) 98 Nasal Cannula 2.00 07/21/19 02:00 90 10 133/78 (96) 97 Nasal Cannula 2.00 07/21/19 01:00 92 07/21/19 01:00 92 11 146/84 (104) 98 Nasal Cannula 2.00 07/21/19 00:00 94 12 155/86 (109) 97 Nasal Cannula 2.00 07/21/19 00:00 98 Nasal Cannula 2.00 07/21/19 00:00 36.6 07/20/19 23:21 36.6 96 22 132/71 96 Nasal Cannula 3.00 07/20/19 23:00 96 21 139/70 (93) 97 Nasal Cannula 2.00 07/20/19 22:00 100 27 138/62 (87) 96 Nasal Cannula 2.00 07/20/19 20:45 98 20 138/80 (99) 90 Nasal Cannula 2.00 07/20/19 20:27 37.0 97 18 146/68 91 Nasal Cannula 3.00 07/20/19 20:15 98 14 146/68 (94) 92 Nasal Cannula 2.00 07/20/19 20:12 37.0 98 14 142/67 91 Nasal Cannula 2.00 07/20/19 20:00 145/68 07/20/19 19:45 98 13 132/63 (86) 91 Nasal Cannula 2.00 07/20/19 19:30 Nasal Cannula 2.00 07/20/19 19:30 99 8 139/73 (95) 96 Nasal Cannula 2.00 07/20/19 19:20 37.1 07/20/19 19:15 96 26 145/72 (96) 94 Nasal Cannula 2.00 07/20/19 19:00 98 16 145/68 (93) 95 Nasal Cannula 2.00 07/20/19 19:00 100 07/20/19 18:50 37.3 96 16 136/75 (95) 95 Nasal Cannula 2.00 07/20/19 18:20 37.1 95 30 120/48 100 Nasal Cannula 2.00 07/20/19 18:05 37.5 95 37.1 07/20/19 16:30 36.7 105 30 122/64 (83) 100 I & O 07/21/19 07:00 Intake Total 1200 ml Output Total 1950 ml Balance -750 ml Capillary Refill : Less Than 3 Seconds General Appearance: No Apparent Distress (laying in bed), WD/WN, Obese HEENT: PERRL/EOMI, Pharynx Normal, Other (contusion/swelling around right eye) Neck: Full Range of Motion, Normal Inspection, Non Tender, Supple Respiratory: Chest Non Tender, No Accessory Muscle Use, No Respiratory Distress Cardiovascular: Regular Rate, Rhythm Gastrointestinal: soft, tenderness (luq) Extremity: Normal Capillary Refill, Normal Inspection, No Calf Tenderness, Pedal Edema (1+ b/l) Neurologic/Psychiatric: Alert, Oriented x3, Normal Mood/Affect Skin: Normal Color, Warm/Dry Results Lab Laboratory Tests 07/20/19 16:33: White Blood Count 10.2, Red Blood Count 1.38L, Hemoglobin 3.5*L, Hematocrit 12*L , Mean Corpuscular Volume 90, Mean Corpuscular Hemoglobin 25, Mean Corpuscular Hemoglobin Concent 28L, Red Cell Distribution Width 15.8H, Platelet Count 185, Mean Platelet Volume 10.9H, Neutrophils (%) (Auto) 83H, Lymphocytes (%) (Auto) 10L, Monocytes (%) (Auto) 5, Eosinophils (%) (Auto) 1, Basophils (%) (Auto) 0, Neutrophils # (Auto) 8.5H, Lymphocytes # (Auto) 1.1, Monocytes # (Auto) 0.5, Eosinophils # (Auto) 0.0, Basophils # (Auto) 0.0, Sodium Level 139, Potassium Level 4.3, Chloride Level 103, Carbon Dioxide Level 20L, Anion Gap 16H, Blood Urea Nitrogen 46H, Creatinine 1.57H, Estimat Glomerular Filtration Rate 33, BUN/Creatinine Ratio 29, Glucose Level 209H, Calcium Level 8.8, Corrected Calcium 9.1, Total Bilirubin 0.3, Aspartate Amino Transf (AST/SGOT) 25, Alanine Aminotransferase (ALT/SGPT) 18, Alkaline Phosphatase 70, Troponin I < 0.30, Pro-B-Type Natriuretic Peptide 2111.0H, Total Protein 6.5, Albumin 3.6 07/20/19 17:10: White Blood Count 11.1H, Red Blood Count 1.39L, Hemoglobin 3.5*L, Hematocrit 13*L, Mean Corpuscular Volume 90, Mean Corpuscular Hemoglobin 25, Mean Corpuscular Hemoglobin Concent 28L, Red Cell Distribution Width 15.9H, Platelet Count 189, Mean Platelet Volume 11.2H, Neutrophils (%) (Auto) 83H, Lymphocytes (%) (Auto) 10L, Monocytes (%) (Auto) 5, Eosinophils (%) (Auto) 1, Basophils (%) (Auto) 0, Neutrophils # (Auto) 9.3H, Lymphocytes # (Auto) 1.2, Monocytes # (Auto) 0.6, Eosinophils # (Auto) 0.0, Basophils # (Auto) 0.0, Neutrophils % (Manual) 81, Lymphocytes % (Manual) 13, Monocytes % (Manual) 0, Eosinophils % (Manual) 0, Basophils % (Manual) 0, Band Neutrophils 3, Nucleated Red Blood Cells 2, Atypical Lymphocytes 3, Polychromasia SLIGHT, Hypochromasia MARKED, Anisocytosis SLIGHT 07/20/19 19:26: Urine Color YELLOW, Urine Clarity CLEAR, Urine pH 5.5, Urine Specific [place] 1.020, Urine Protein TRACEH, Urine Glucose (UA) NEGATIVE, Urine Ketones NEGATI VE, Urine Nitrite NEGATIVE, Urine Bilirubin NEGATIVE, Urine Urobilinogen 0.2, Urine Leukocyte Esterase NEGATIVE, Urine RBC (Auto) NEGATIVE, Urine RBC NONE, Urine WBC NONE, Urine Squamous Epithelial Cells 0-2, Urine Crystals PRESENTH, Urine Amorphous Sediment LARGE LAUREN URATESH, Urine Bacteria NEGATIVE, Urine Casts PRESENT, Urine Hyaline Casts 0-2H, Urine Mucus NEGATIVE, Urine Culture Indicated NO 07/20/19 19:35: Hemoglobin 5.0#*L, Hematocrit 16*L 07/20/19 20:17: Glucometer 397H 07/21/19 01:42: White Blood Count 10.9, Red Blood Count 2.17L, Hemoglobin 5.9*L, Hematocrit 19*L , Mean Corpuscular Volume 88, Mean Corpuscular Hemoglobin 27, Mean Corpuscular Hemoglobin Concent 31L, Red Cell Distribution Width 14.9H, Platelet Count 193, Mean Platelet Volume 10.8H, Neutrophils (%) (Auto) 77H, Lymphocytes (%) (Auto) 16, Monocytes (%) (Auto) 6, Eosinophils (%) (Auto) 1, Basophils (%) (Auto) 0, Neutrophils # (Auto) 8.4H, Lymphocytes # (Auto) 1.8, Monocytes # (Auto) 0.6, Eosinophils # (Auto) 0.1, Basophils # (Auto) 0.0, Prothrombin Time 15.7H, INR Comment 1.2, Activated Partial Thromboplast Time 25, Sodium Level 140, Potassium Level 4.6, Chloride Level 108H, Carbon Dioxide Level 19L, Anion Gap 13, Blood Urea Nitrogen 45H, Creatinine 1.77H, Estimat Glomerular Filtration Rate 29, BUN/ Creatinine Ratio 25, Glucose Level 197H, Calcium Level 8.2L, Phosphorus Level 4.2, Magnesium Level 2.2 07/21/19 06:23: Glucometer 231H Assessment/Plan Assessment/Plan Assessment/Plan severe anemia right meidal orbital fracture right paranasal hemo-sinus fall luq abdominal pain Patient being transfused prbc follow hgb and transfuse blood products as needed. neurochecks ct abd/pelvis with contrast-no acute traumatic injury npo hold anticoagulation will follow. Clinical Quality Measures DVT/VTE Risk/Contraindication: Risk Factor Score Per Nursin RFS Level Per Nursing on Admit: 3=High DAMON DONOVAN DO July 21, 2019 07:12
--- NOTE | 2019-07-21 07:31 | Diagnostic Imaging Report ---
CHEST 1 VIEW, AP/PA ONLY Indication: Severe anemia, wheezing Comparison: 07/20/2019 Findings: Stable enlargement of the cardiac silhouette. Ill-defined scattered pulmonary opacities are persistent. Trace pleural effusions are likely present but suboptimally evaluated by portable radiography. No pneumothorax. Impression: 1. Stable cardiomegaly with basilar opacities which may be due to atelectasis or edema. Dictated by: Dictated on workstation # [id number]
[2019-07-21] MEDS: PANTOPRAZOLE 40 MG (PROTONIX) VIAL IV SCH ×2 (08:15→20:48)
[2019-07-21 08:31] LABS: HEMOGLOBIN 6.7 G/DL (11.5-16.0)
--- NOTE | 2019-07-21 11:31 | History & Physical ---
HPI History of Present Illness: 63 yo female came to ER due to falling at home yesterday. She states that her is a hoarder and there are very narrow walkways and as she was winding her way to the bathroom, she felt her knees wobbling back and forth and then fell. She reports her came and found her unconscious. She has pain in her left upper quadrant. She denies chest pain prior, but did feel dizzy and short of breath. She denies blood in stool or urine or vomiting. Per ER report she has chronic anemia, but she does not recall being told she had anemia in the past. She is on her baseline oxygen which she uses continuously secondary to COPD. She is on Xarelto for A fib and Dr. West is her usual Injection Specialist. Source: patient Date seen by provider: July 21, 2019 Time Seen by Provider: 10:10 Attending Physician Shahrzad Smith MD PCP Obdulio Cabral MD Consult Date of Admission Jul 20, 2019 at 17:37 Home Medications Home Medications Reviewed patient Home Medication Reconciliation performed by pharmacy medication reconciliations customer data technician and/or nursing. Patients Allergies have been reviewed. Allergies Coded Allergies: morphine (Verified Adverse Reaction, Severe, hallucination, 07/12/18) [id number] Hx Patient Social History Alcohol Use: Denies Use Recreational Drug Use: No Smoking Status: Former Smoker Type Used: Cigarettes 2nd Hand Smoke Exposure: No Recent Foreign Travel: No Contact w/other who traveled: No Recent Hopitalizations: Yes Recent Infectious Disease Expo: No Immunizations Up To Date Tetanus Booster (TDap): Unknown Date of Pneumonia Vaccine: Mar 05, 2013 Date of Influenza Vaccine: Jan 12, 2019 Past Medical History PMHx: DMII HTN HLD A fib SurgHx: Hysterectomy Cholecystectomy Neck surgery Family Medical History Significant Family History: Diabetes, Hypertension Family History: Patient reports no known family medical history. Review of Systems ([facility]) Constitutional: No fever Respiratory: short of breath Cardiovascular: No chest pain Gastrointestinal: No abdominal pain, No constipation, No diarrhea, No nausea, No vomiting Genitourinary: no symptoms reported Musculoskeletal: muscle pain Reviewed Test Results Reviewed Test Results Lab Laboratory Tests Test 07/20/19 16:33 07/20/19 17:10 07/20/19 19:26 07/20/19 19:35 Range/Units White Blood Count 10.2 11.1 H 4.3-11.0 10^3/uL Red Blood Count 1.38 L 1.39 L 4.35-5.85 10^6/uL Hemoglobin 3.5 *L 3.5 *L 5.0 #*L 11.5-16.0 G/DL Hematocrit 12 *L 13 *L 16 *L 35-52 % Mean Corpuscular Volume 90 90 80-99 FL Mean Corpuscular Hemoglobin 25 25 25-34 PG Mean Corpuscular Hemoglobin Concent 28 L 28 L 32-36 G/DL Red Cell Distribution Width 15.8 H 15.9 H 10.0-14.5 % Platelet Count 185 189 130-400 10^3/uL Mean Platelet Volume 10.9 H 11.2 H 7.4-10.4 FL Neutrophils (%) (Auto) 83 H 83 H 42-75 % Lymphocytes (%) (Auto) 10 L 10 L 12-44 % Monocytes (%) (Auto) 5 5 0-12 % Eosinophils (%) (Auto) 1 1 0-10 % Basophils (%) (Auto) 0 0 0-10 % Neutrophils # (Auto) 8.5 H 9.3 H 1.8-7.8 X 10^3 Lymphocytes # (Auto) 1.1 1.2 1.0-4.0 X 10^3 Monocytes # (Auto) 0.5 0.6 0.0-1.0 X 10^3 Eosinophils # (Auto) 0.0 0.0 0.0-0.3 10^3/uL Basophils # (Auto) 0.0 0.0 0.0-0.1 10^3/uL Sodium Level 139 135-145 MMOL/L Potassium Level 4.3 3.6-5.0 MMOL/L Chloride Level 103 98-107 MMOL/L Carbon Dioxide Level 20 L 21-32 MMOL/L Anion Gap 16 H 5-14 MMOL/L Blood Urea Nitrogen 46 H 7-18 MG/DL Creatinine 1.57 H 0.60-1.30 MG/DL Estimat Glomerular Filtration Rate 33 BUN/Creatinine Ratio 29 Glucose Level 209 H 70-105 MG/DL Calcium Level 8.8 8.5-10.1 MG/DL Corrected Calcium 9.1 8.5-10.1 MG/DL Total Bilirubin 0.3 0.1-1.0 MG/DL Aspartate Amino Transf (AST/SGOT) 25 5-34 U/L Alanine Aminotransferase (ALT/SGPT) 18 0-55 U/L Alkaline Phosphatase 70 40-136 U/L Troponin I < 0.30 <0.30 NG/ML Pro-B-Type Natriuretic Peptide 2111.0 H <75.0 PG/ML Total Protein 6.5 6.4-8.2 GM/DL Albumin 3.6 3.2-4.5 GM/DL Neutrophils % (Manual) 81 % Lymphocytes % (Manual) 13 % Monocytes % (Manual) 0 % Eosinophils % (Manual) 0 % Basophils % (Manual) 0 % Band Neutrophils 3 % Nucleated Red Blood Cells 2 Atypical Lymphocytes 3 % Polychromasia SLIGHT Hypochromasia MARKED Anisocytosis SLIGHT Urine Color YELLOW Urine Clarity CLEAR Urine pH 5.5 5-9 Urine Specific [place] 1.020 1.016-1.022 Urine Protein TRACE H NEGATIVE Urine Glucose (UA) NEGATIVE NEGATIVE Urine Ketones NEGATIVE NEGATIVE Urine Nitrite NEGATIVE NEGATIVE Urine Bilirubin NEGATIVE NEGATIVE Urine Urobilinogen 0.2 < = 1.0 MG/DL Urine Leukocyte Esterase NEGATIVE NEGATIVE Urine RBC (Auto) NEGATIVE NEGATIVE Urine RBC NONE /HPF Urine WBC NONE /HPF Urine Squamous Epithelial Cells 0-2 /HPF Urine Crystals PRESENT H /LPF Urine Amorphous Sediment LARGE LAUREN URATES H /LPF Urine Bacteria NEGATIVE /HPF Urine Casts PRESENT /LPF Urine Hyaline Casts 0-2 H /LPF Urine Mucus NEGATIVE /LPF Urine Culture Indicated NO Test 07/20/19 20:17 07/21/19 01:42 07/21/19 06:23 07/21/19 08:20 Range/Units Glucometer 397 H 231 H 70-110 MG/DL White Blood Count 10.9 4.3-11.0 10^3/uL Red Blood Count 2.17 L 4.35-5.85 10^6/uL Hemoglobin 5.9 *L 6.7 *L 11.5-16.0 G/DL Hematocrit 19 *L 21 L 35-52 % Mean Corpuscular Volume 88 80-99 FL Mean Corpuscular Hemoglobin 27 25-34 PG Mean Corpuscular Hemoglobin Concent 31 L 32-36 G/DL Red Cell Distribution Width 14.9 H 10.0-14.5 % Platelet Count 193 130-400 10^3/uL Mean Platelet Volume 10.8 H 7.4-10.4 FL Neutrophils (%) (Auto) 77 H 42-75 % Lymphocytes (%) (Auto) 16 12-44 % Monocytes (%) (Auto) 6 0-12 % Eosinophils (%) (Auto) 1 0-10 % Basophils (%) (Auto) 0 0-10 % Neutrophils # (Auto) 8.4 H 1.8-7.8 X 10^3 Lymphocytes # (Auto) 1.8 1.0-4.0 X 10^3 Monocytes # (Auto) 0.6 0.0-1.0 X 10^3 Eosinophils # (Auto) 0.1 0.0-0.3 10^3/uL Basophils # (Auto) 0.0 0.0-0.1 10^3/uL Prothrombin Time 15.7 H 12.2-14.7 SEC INR Comment 1.2 0.8-1.4 Activated Partial Thromboplast Time 25 24-35 SEC Sodium Level 140 135-145 MMOL/L Potassium Level 4.6 3.6-5.0 MMOL/L Chloride Level 108 H 98-107 MMOL/L Carbon Dioxide Level 19 L 21-32 MMOL/L Anion Gap 13 5-14 MMOL/L Blood Urea Nitrogen 45 H 7-18 MG/DL Creatinine 1.77 H 0.60-1.30 MG/DL Estimat Glomerular Filtration Rate 29 BUN/Creatinine Ratio 25 Glucose Level 197 H 70-105 MG/DL Calcium Level 8.2 L 8.5-10.1 MG/DL Phosphorus Level 4.2 2.3-4.7 MG/DL Magnesium Level 2.2 1.6-2.4 MG/DL Test 07/21/19 11:18 07/21/19 11:40 Range/Units Lab Scanned Report Transfusion Reaction Form [id number] Glucometer 322 H 70-110 MG/DL Radiology CT head/face: IMPRESSION: CT HEAD: No intracerebral hemorrhage or acute appearing pathology. No calvarial fracture deformity. CT FACIAL BONES: Medial right orbital fracture with some hemorrhagic thickening of the right medial rectus and preseptal soft tissue swelling. Right-sided paranasal hemo-sinus with intact orbital floors and rims. No other facial fracture can be identified. CXR 07/19: IMPRESSION: 1. Cefn-[id number] cardiomegaly. 2. Mild diffuse prominence of the pulmonary interstitium. Findings could be on the basis of interstitial edema or pneumonia, although underlying chronic interstitial lung disease cannot be excluded. Physical Exam-([facility]) Physical Exam Vital Signs VS - Last 72 Hours, by Label 07/20/19 07/20/19 07/20/19 07/20/19 16:30 18:05 18:20 18:50 Temp 36.7 37.5 37.1 37.3 37.1 Pulse 105 95 95 96 Resp 16 B/P (MAP) 122/64 (83) 120/48 136/75 (95) Pulse Ox 100 100 95 O2 Delivery Nasal Cannula Nasal Cannula O2 Flow Rate 2.00 2.00 07/20/19 07/20/19 07/20/19 07/20/19 19:00 19:00 19:15 19:20 Temp 37.1 Pulse 100 98 96 Resp 16 26 B/P (MAP) 145/68 (93) 145/72 (96) Pulse Ox 95 94 O2 Delivery Nasal Cannula Nasal Cannula O2 Flow Rate 2.00 2.00 07/20/19 07/20/19 07/20/19 07/20/19 19:30 19:30 19:45 20:00 Pulse 99 98 Resp 8 13 B/P (MAP) 139/73 (95) 132/63 (86) 145/68 Pulse Ox 96 91 O2 Delivery Nasal Cannula Nasal Cannula Nasal Cannula O2 Flow Rate 2.00 2.00 2.00 07/20/19 07/20/19 07/20/19 07/20/19 20:12 20:15 20:27 20:45 Temp 37.0 37.0 Pulse 98 98 97 98 Resp 14 14 18 20 B/P (MAP) 142/67 146/68 (94) 146/68 138/80 (99) Pulse Ox 91 92 91 90 O2 Delivery Nasal Cannula Nasal Cannula Nasal Cannula Nasal Cannula O2 Flow Rate 2.00 2.00 3.00 2.00 07/20/19 07/20/19 07/20/19 07/21/19 22:00 23:00 23:21 00:00 Temp 36.6 36.6 Pulse 100 96 96 Resp 27 21 22 B/P (MAP) 138/62 (87) 139/70 (93) 132/71 Pulse Ox 96 97 96 O2 Delivery Nasal Cannula Nasal Cannula Nasal Cannula O2 Flow Rate 2.00 2.00 3.00 07/21/19 07/21/19 07/21/19 07/21/19 00:00 00:00 01:00 01:00 Pulse 94 92 92 Resp 12 11 B/P (MAP) 155/86 (109) 146/84 (104) Pulse Ox 98 97 98 O2 Delivery Nasal Cannula Nasal Cannula Nasal Cannula O2 Flow Rate 2.00 2.00 2.00 07/21/19 07/21/19 07/21/19 07/21/19 02:00 03:00 03:49 04:00 Temp 37.0 Pulse 90 95 92 92 Resp 10 19 16 26 B/P (MAP) 133/78 (96) 131/78 (95) 124/61 135/68 (90) Pulse Ox 97 98 97 97 O2 Delivery Nasal Cannula Nasal Cannula Nasal Cannula Nasal Cannula O2 Flow Rate 2.00 2.00 2.00 2.00 07/21/19 07/21/19 07/21/19 07/21/19 04:00 04:03 04:04 05:00 Temp 37.0 36.8 Pulse 92 93 Resp 13 17 B/P (MAP) 135/68 118/83 (95) Pulse Ox 98 97 96 O2 Delivery Nasal Cannula Nasal Cannula Nasal Cannula O2 Flow Rate 2.00 2.00 2.00 07/21/19 07/21/19 07/21/19 07/21/19 06:00 06:17 07:00 07:00 Temp 36.8 Pulse 92 94 93 94 Resp 13 16 12 B/P (MAP) 139/74 (95) 141/69 142/70 (94) Pulse Ox 96 97 97 O2 Delivery Nasal Cannula Nasal Cannula Nasal Cannula O2 Flow Rate 2.00 2.00 2.00 07/21/19 07/21/19 07/21/19 07/21/19 08:00 08:00 09:00 09:17 Temp 36.2 Pulse 97 98 Resp 20 25 B/P (MAP) 139/77 (97) 148/72 (97) Pulse Ox 97 97 95 O2 Delivery Nasal Cannula Nasal Cannula Nasal Cannula Nasal Cannula O2 Flow Rate 2.00 2.00 2.00 2.00 07/21/19 07/21/19 07/21/19 07/21/19 10:00 11:00 12:00 12:00 Pulse 101 102 103 Resp 19 24 22 B/P (MAP) 147/71 (96) 142/74 (96) 156/71 (99) Pulse Ox 93 91 91 97 O2 Delivery Nasal Cannula Nasal Cannula Nasal Cannula Nasal Cannula O2 Flow Rate 2.00 2.00 2.00 2.00 07/21/19 07/21/19 13:00 13:12 Pulse 105 104 Resp 22 B/P (MAP) 147/77 (100) Pulse Ox 90 O2 Delivery Nasal Cannula O2 Flow Rate 2.00 Capillary Refill : Less Than 3 Seconds General Appearance: no apparent distress Eyes: Bilateral Eye PERRL, Bilateral Eye EOMI, Bilateral Eye Other (subconjuncitval hemorrhage right eye, ecchymosis and swelling around right eye) Respiratory: lungs clear, decreased breath sounds Cardiovascular: regular rate, rhythm, no murmur Gastrointestinal: normal bowel sounds, other (ttp LUQ, mild distension) Extremities: pedal edema (1+) Neurologic/Psychiatric: generator rebuilder II-XII nml as tested, alert, normal mood/affect, oriented x 3; No abnormal cerebellar tests Skin: warm/dry Assessment/Plan Assessment/Plan Admission Status: Inpatient Order (span 2 midnights) Reason for Inpatient Admission: Severe anemia requiring transfusion with multiple severe underlying comorbidities. (1) Right orbit fracture Status: Acute Assessment & Plan: Trauma Surgery consulted. Extraocular movements intact and pupils responsive, Optometry to come this pm and for limited dilated eye exam. Qualifiers: Qualified Codes: S02.85XA - Fracture of orbit, unspecified, initial encounter for closed fracture (2) Acute renal insufficiency Status: Acute Assessment & Plan: IVF started per Dr. Luna today. Will monitor closely and likely be difficult balance between renal function and pulmonary edema. (3) Diabetes mellitus, type 2 Status: Chronic Assessment & Plan: When safe for PO, diabetic diet. Sliding scale insulin. Qualifiers: (4) A-fib Status: Chronic Assessment & Plan: On Xarelto at home, holding due to severe anemia. (5) HTN (hypertension) Status: Chronic Assessment & Plan: Will resume home medications as blood pressure indicates. Qualifiers: Qualified Codes: I10 - Essential (primary) hypertension (6) HLD (hyperlipidemia) Status: Chronic (7) Congestive heart failure (CHF) Status: Chronic Assessment & Plan: BNP elevated on admit, one dose of IV lasix given yesterday and creatinine worsened this am, will hold for now and monitor respiratory status closely. Qualifiers: Qualified Codes: I50.32 - Chronic diastolic (congestive) heart failure (8) COPD (chronic obstructive pulmonary disease) Status: Chronic Assessment & Plan: No evidence of exacerbation. On baseline oxygen. (9) Multilevel degenerative disc disease Status: Chronic Assessment & Plan: Resumed home hydrocodone. (10) Syncope Status: Acute Assessment & Plan: Note that she had syncope in past and had previously had sinus pauses. Appears this time was related to exertional hypoxia with severe anemia. Monitor with blood transfusion. (11) Severe anemia Status: Acute Assessment & Plan: Has had anemia in past and reportedly had EGD/colonoscopy in 2019 in but results are unknown to me at this time. Started on IV PPI, monitor H&H. Surgery consulted. (12) Carotid stenosis Assessment & Plan: Per Cardiology notes Feb 2019 had severe carotid stenosis and needed follow up with Vascular, unclear if this has been done, repeat carotid US. (13) Coronary artery disease Status: Chronic Qualifiers: Qualified Codes: I25.10 - Atherosclerotic heart disease of [place] coronary artery without angina pectoris (14) DVT prophylaxis Status: Acute Assessment & Plan: No pharmacologic due to severe anemia. Clinical Quality Measures DVT/VTE Risk/Contraindication: Risk Factor Score Per Nursin RFS Level Per Nursing on Admit: 3=High SHAHRZAD SMITH MD July 21, 2019 11:31
[2019-07-21] MEDS ORDERED: TORS10TA5 PO (14:04)
[2019-07-21] MEDS ORDERED: SPIR25TA PO (14:04)
[2019-07-21] MEDS ORDERED: DOXA1TAB2 PO (14:04)
[2019-07-21] MEDS ORDERED: MTP25TSR PO (14:04)
[2019-07-21] MEDS ORDERED: POTA2TAB5 PO (14:11)
[2019-07-21] MEDS ORDERED: PRD20T PO (14:11)
[2019-07-21] MEDS ORDERED: CALC-68 PO (14:11)
[2019-07-21] MEDS ORDERED: DOXY100C2 PO (14:11)
[2019-07-21] MEDS ORDERED: TURM500C4 PO (14:11)
[2019-07-21] MEDS ORDERED: ALBU18HF2 PO (14:25)
--- NOTE | 2019-07-21 14:29 | NUR ---
SPOKE WITH THE PT AND WENT THRU THE EXT MED HISTORY TO COMPLETE THE MED REC GABAPENTIN 600MG- DIRECTIONS ARE 1 TAB TID HOWEVER THE PT SAYS SHE TAKES 1 TAB BID. THE MED IS PAST DUE FOR A REFILL HOWEVER EACH TIME SHE PICKS UP THE MED IT LASTS HER LONGER THEN 30 DAYS. PT SAID SHE HAS A STOCK BUILT UP SINCE SHE DOESNT TAKE IT TID. DUE TO EACH SCRIPT LASTING HER LONGER I DID NOT INCLUDE A PAST DUE FILL DATE ON THE MED REC OTC MEDS: POTASSIUM CALCIUM W/ VIT D TURMERIC MTV MAGNESIUM FISH OIL ASPPIRIN SENNA S CINNAMON
[2019-07-21] MEDS ORDERED: RT-ALBUTEROL/IPRATROPIUM 3 ML (DUONEB) VIAL IH PRN (15:00)
[2019-07-21 15:27] LABS: HEMOGLOBIN 6.6 G/DL (11.5-16.0)
[2019-07-21] MEDS: HYDROcodone/APAP 10 MG/325 MG (LORTAB) TAB PO PRN (17:57)
[2019-07-21] MEDS: ADVAIR HFA 115/21 MCG INHALER 8 GM IH SCH (18:57)
[2019-07-21] MEDS: SENNA W/DOCUSATE (SENOKOT S) TABLET PO SCH (20:49)
[2019-07-21] MEDS: GABAPENTIN 600 MG (NEURONTIN) TAB PO SCH (20:49)
--- NOTE | 2019-07-21 21:15 | NUR ---
REPORT GIVEN TO CB TRAVIS. PT TRANSFERRED DOWN TO ROOM 411 VIA WHEELCHAIR WITH BELONGINGS.
[2019-07-22] MEDS: HYDROcodone/APAP 10 MG/325 MG (LORTAB) TAB PO PRN ×2 (00:22→11:35)
--- NOTE | 2019-07-22 00:33 | NUR ---
ORDER FOR DILAUDID 0.25MG Q4H PRN FOR BREAKTHROUGH PAIN OBTAINED FROM [facility] AT THIS TIME.
[2019-07-22] MEDS: HYDROmorphone 2 MG/ML VIAL (DILAUDID) IVP PRN ×3 (00:39→09:34)
[2019-07-22 04:00] VITALS: BP 173/80
[2019-07-22] MEDS ORDERED: NALOXONE 0.4 MG/ML 1 ML (NARCAN) VIAL ONE (04:44)
[2019-07-22] MEDS ORDERED: NALOXONE 0.4 MG/ML 1 ML (NARCAN) VIAL IV ONE (05:00)
[2019-07-22 05:12] LABS: BASOPHILS % (AUTO) 0 % (0-10); EOSINOPHILS # (AUTO) 0.3 10^3/uL (0.0-0.3); EOSINOPHILS % (AUTO) 3 % (0-10); HEMATOCRIT 26 % (35-52); LYMPHOCYTES % (AUTO) 17 % (12-44); MEAN CORPUSCULAR HEMOGLOBIN 27 PG (25-34); MEAN CORPUSCULAR HGB CONC 31 G/DL (32-36); MEAN CORPUSCULAR VOLUME 86 FL (80-99); MEAN PLATELET VOLUME 10.6 FL (7.4-10.4); MONOCYTES # (AUTO) 0.9 X 10^3 (0.0-1.0); MONOCYTES % (AUTO) 7 % (0-12); NEUTROPHILS # (AUTO) 8.9 X 10^3 (1.8-7.8); NEUTROPHILS % (AUTO) 73 % (42-75); PLATELET COUNT 199 10^3/uL (130-400); WHITE BLOOD COUNT 12.1 10^3/uL (4.3-11.0)
[2019-07-22 05:31] LABS: CALCIUM 8.5 MG/DL (8.5-10.1); CREATININE SERUM 1.44 MG/DL (0.60-1.30); PHOSPHORUS 3.2 MG/DL (2.3-4.7); POTASSIUM 4.2 MMOL/L (3.6-5.0)
[2019-07-22] MEDS: POTASSIUM CL 10MEQ/50ML IVPB 50 ML IV SCH (05:39)
[2019-07-22] MEDS: KCL 20 MEQ TAB (K-DUR) PO SCH (05:39)
[2019-07-22] MEDS: MAGNESIUM 1 GM/100 ML IVPB 100 ML IV SCH (05:39)
[2019-07-22] MEDS: inSUlin ASPART (NovoLOG) 1 UNIT/0.01 ML (CHARGE PER UNIT) SC SCH ×4 (05:44→21:58)
[2019-07-22] MEDS: ADVAIR HFA 115/21 MCG INHALER 8 GM IH SCH ×2 (06:41→19:05)
[2019-07-22 08:00] VITALS: BP 154/68
[2019-07-22] MEDS: amLODIPine 10 MG (NORVASC) TAB PO SCH (09:26)
[2019-07-22] MEDS: PANTOPRAZOLE 40 MG (PROTONIX) VIAL IV SCH (09:27)
[2019-07-22] MEDS: GABAPENTIN 600 MG (NEURONTIN) TAB PO SCH ×2 (09:27→21:50)
--- NOTE | 2019-07-22 11:00 | Progress Note ---
Subjective Date Seen by a Provider: July 22, 2019 Time Seen by a Provider: 10:00 Subjective/Events-last exam Patient seen with Dr. Edmondson. Patient reports she is improving and denies any SOB or fatigue. Tolerating diet with no N/V. Denies any fever/chills. Does report continued right orbital as well as abdominal pain and reports this has been since her fall and that she landed on boxes. Objective Exam Vital Signs Date Time Temp Pulse Resp B/P (MAP) Pulse Ox O2 Delivery O2 Flow Rate FiO2 07/22/19 09:00 97 Nasal Cannula 3.00 07/22/19 08:00 36.4 86 20 154/68 (96) 97 Nasal Cannula 3.00 07/22/19 06:42 94 Nasal Cannula 3.00 07/22/19 04:00 Nasal Cannula 3.00 07/22/19 04:00 36.2 106 20 173/80 (111) 97 Nasal Cannula 3.00 07/22/19 00:00 Nasal Cannula 3.00 07/21/19 22:45 101 20 169/72 (104) 96 Nasal Cannula 3.00 07/21/19 22:00 79 21 116/77 (90) 94 Nasal Cannula 3.00 07/21/19 21:00 98 19 158/73 (101) 97 Nasal Cannula 3.00 07/21/19 20:04 36.3 102 16 149/69 95 Nasal Cannula 2.00 07/21/19 20:00 94 Nasal Cannula 3.00 07/21/19 20:00 99 25 149/69 (95) 95 Nasal Cannula 3.00 07/21/19 19:53 Nasal Cannula 3.00 07/21/19 19:52 36.3 101 32 Nasal Cannula 4.00 07/21/19 19:00 106 07/21/19 19:00 106 20 155/73 (100) 95 Nasal Cannula 4.00 07/21/19 18:59 94 Nasal Cannula 4.00 07/21/19 18:00 106 19 155/73 (100) 96 Nasal Cannula 4.00 07/21/19 17:14 37.2 110 153/66 07/21/19 17:00 106 23 153/66 (95) 96 Nasal Cannula 4.00 07/21/19 16:57 37.2 106 157/70 07/21/19 16:20 94 Nasal Cannula 4.00 07/21/19 16:00 94 Nasal Cannula 4.00 07/21/19 16:00 105 18 160/77 (104) 95 Nasal Cannula 2.00 07/21/19 15:56 37.2 07/21/19 15:00 104 18 161/79 (106) 94 Nasal Cannula 2.00 07/21/19 14:00 105 17 157/75 (102) 91 Nasal Cannula 2.00 07/21/19 13:12 104 07/21/19 13:00 105 22 147/77 (100) 90 Nasal Cannula 2.00 07/21/19 12:00 97 Nasal Cannula 2.00 07/21/19 12:00 103 22 156/71 (99) 91 Nasal Cannula 2.00 07/21/19 11:00 102 24 142/74 (96) 91 Nasal Cannula 2.00 I & O 07/22/19 07:00 Intake Total 4390 ml Output Total 3675 ml Balance 715 ml Capillary Refill : Less Than 3 Seconds General Appearance: No Apparent Distress, WD/WN Neck: Normal Inspection, Non Tender, Supple Respiratory: Normal Breath Sounds, No Accessory Muscle Use, No Respiratory Distress Cardiovascular: Regular Rate, Rhythm, No Edema Gastrointestinal: normal bowel sounds, soft, no organomegaly, tenderness (More on the left side with no palpable masses.) Neurologic/Psychiatric: Alert, Oriented x3 Skin: Normal Color, Warm/Dry, Ecchymosis (Right orbital area) Results Lab Laboratory Tests 07/21/19 11:18: Lab Scanned Report Transfusion Reaction Form 07/21/19 11:40: Glucometer 322H 07/21/19 15:05: Hemoglobin 6.6*L, Hematocrit 21L 07/21/19 15:50: Glucometer 312H 07/21/19 20:27: Glucometer 249H 07/21/19 21:55: Hemoglobin 8.0#L, Hematocrit 25L 07/22/19 04:40: Hemoglobin 8.0L, Hematocrit 26L, White Blood Count 12.1H, Red Blood Count 3.00L, Mean Corpuscular Volume 86, Mean Corpuscular Hemoglobin 27, Mean Corpuscular Hemoglobin Concent 31L, Red Cell Distribution Width 17.0H, Platelet Count 199, Mean Platelet Volume 10.6H, Neutrophils (%) (Auto) 73, Lymphocytes (%) (Auto) 17, Monocytes (%) (Auto) 7, Eosinophils (%) (Auto) 3, Basophils (%) (Auto) 0, Neutrophils # (Auto) 8.9H, Lymphocytes # (Auto) 2.0, Monocytes # (Auto) 0.9, Eosinophils # (Auto) 0.3, Basophils # (Auto) 0.0, Sodium Level 137, Potassium Level 4.2, Chloride Level 106, Carbon Dioxide Level 20L, Anion Gap 11, Blood Urea Nitrogen 31H, Creatinine 1.44H, Estimat Glomerular Filtration Rate 37, BUN/Creatinine Ratio 22, Glucose Level 235H, Calcium Level 8.5, Phosphorus Level 3.2, Magnesium Level 2.0 07/22/19 05:15: Glucometer 261H Microbiology 07/20/19 MRSA Screen - Final, Complete MRSA not isolated Assessment/Plan Assessment/Plan Assess & Plan/Chief Complaint A 63 year old female with severe anemia, right meidal orbital fracture, right paranasal hemo-sinus, fall, luq abdominal pain VSS Hgb stable at 8.0, WBC 12.1 Patient being transfused prbc follow hgb and transfuse blood products as needed. neurochecks ct abd/pelvis with contrast-no acute traumatic injury hold anticoagulation Continue labs Will advance diet Will continue to monitor Clinical Quality Measures DVT/VTE Risk/Contraindication: Risk Factor Score Per Nursin RFS Level Per Nursing on Admit: 3=CLEO Sanchez [employer] DES[employer] July 22, 2019 11:00
--- NOTE | 2019-07-22 11:18 | Diagnostic Imaging Report ---
EXAM: Portable erect AP chest at 4:15 INDICATION: Dyspnea FINDINGS: The cardiomegaly and the loop recorder device seen on the prior exam of 07/21/2019 are again evident and no different. The prior exam did suggest mild atelectasis/infiltrate in each lung base. On this exam, the lung bases may be somewhat better aerated. The upper lungs remain clear. The mediastinum is not widened. The osseous structures are intact. IMPRESSION: The overall appearance of the chest has not changed significantly since the prior exam. The lung bases may be slightly better aerated however. A follow-up exam should be considered for further evaluation. Dictated by: Dictated on workstation # [id number]
[2019-07-22 12:00] VITALS: BP 164/78
--- NOTE | 2019-07-22 13:03 | Progress Note - Hospitalist ---
Subjective HPI/CC On Admission Date Seen by Provider: July 22, 2019 Time Seen by Provider: 11:45 Subjective/Events-last exam Patient doing much better Had a shower today No BM for several days so we will start treatment We will remove [place] catheter today We will order physical therapy and Occupational Therapy Hemoglobin 8.0 status post 4 units of blood Creatinine 1.44 we will monitor that closely May need rehab before going home due to the fall Review of Systems General: Fatigue Objective Exam Vital Signs Vital Signs Date Time Temp Pulse Resp B/P (MAP) Pulse Ox O2 Delivery O2 Flow Rate FiO2 07/22/19 09:00 97 Nasal Cannula 3.00 07/22/19 08:00 36.4 86 20 154/68 (96) Capillary Refill : Less Than 3 Seconds General Appearance: No Apparent Distress, WD/WN, Chronically ill Respiratory: Chest Non Tender, Lungs Clear, Normal Breath Sounds, No Accessory Muscle Use, No Respiratory Distress Cardiovascular: Regular Rate, Rhythm, No Edema, No Gallop, No JVD, No Murmur, Normal Peripheral Pulses Neurologic/Psychiatric: Alert, Oriented x3, No Motor/Sensory Deficits, Normal Mood/Affect Results/Procedures Lab Laboratory Tests 07/21/19 15:05 07/21/19 21:55 07/22/19 04:40 Patient resulted labs reviewed. Assessment/Plan Assessment and Plan Assess & Plan/Chief Complaint (1) Right orbit fracture Status: Acute Assessment & Plan: Trauma Surgery consulted. Extraocular movements intact and pupils responsive, Optometry for limited dilated eye exam. Qualifiers: Qualified Codes: S02.85XA - Fracture of orbit, unspecified, initial encounter for closed fracture (2) Acute renal insufficiency Status: Acute Assessment & Plan: IVF decreased. Will monitor closely and likely be difficult balance between renal function and pulmonary edema. (3) Diabetes mellitus, type 2 Status: Chronic Assessment & Plan: When safe for PO, diabetic diet. Sliding scale insulin. Now on CLD Qualifiers: (4) A-fib Status: Chronic Assessment & Plan: On Xarelto at home, holding due to severe anemia. (5) HTN (hypertension) Status: Chronic Assessment & Plan: Will resume home medications as blood pressure indicates. Qualifiers: Qualified Codes: I10 - Essential (primary) hypertension (6) HLD (hyperlipidemia) Status: Chronic (7) Congestive heart failure (CHF) Status: Chronic Assessment & Plan: BNP elevated on admit, one dose of IV lasix given on admit and creatinine worsened yesterday, will hold for now and monitor respiratory status closely. Qualifiers: Qualified Codes: I50.32 - Chronic diastolic (congestive) heart failure (8) COPD (chronic obstructive pulmonary disease) Status: Chronic Assessment & Plan: No evidence of exacerbation. On baseline oxygen. (9) Multilevel degenerative disc disease Status: Chronic Assessment & Plan: Resumed home hydrocodone. (10) Syncope Status: Acute Assessment & Plan: Note that she had syncope in past and had previously had sinus pauses. Appears this time was related to exertional hypoxia with severe anemia. Monitor with blood transfusion. (11) Severe anemia Status: Acute Assessment & Plan: Has had anemia in past and reportedly had EGD/colonoscopy in 2019 in but results are unknown to me at this time. Started on IV PPI, monitor H&H. Surgery consulted. Hgb 8.0 s/p 4 units (12) Carotid stenosis Assessment & Plan: Per Cardiology notes Feb 2019 had severe carotid stenosis and needed follow up with Vascular, unclear if this has been done, repeat carotid US. (13) Coronary artery disease Status: Chronic Qualifiers: Qualified Codes: I25.10 - Atherosclerotic heart disease of [place] coronary artery without angina pectoris (14) DVT prophylaxis Status: Acute Assessment & Plan: No pharmacologic due to severe anemia. Clinical Quality Measures DVT/VTE Risk/Contraindication: Risk Factor Score Per Nursin RFS Level Per Nursing on Admit: 3=High ZACK ESCOBEDO DO July 22, 2019 13:03
[2019-07-22] MEDS ORDERED: LACTULOSE SYRUP 10GM/15ML (ENULOSE) 30ML UDC PO ONE (13:15)
[2019-07-22] MEDS ORDERED: fentaNYL INJECTION 100 MCG/2 ML AMP IVP PRN (13:15)
[2019-07-22] MEDS ORDERED: polyethylene glycoL POWDER 17 GM (MIRALAX) PACK PO ONE (13:15)
[2019-07-22] MEDS: IRON SUCROSE 200 MG/10 ML (VENOFER) VIAL IV SCH (15:09)
[2019-07-22 16:24] VITALS: BP 157/67
[2019-07-22] MEDS ORDERED: CYCLOBENZAPRINE 10 MG (FLEXERIL) TAB PO PRN (17:00)
[2019-07-22 19:50] VITALS: BP 183/79
[2019-07-22] MEDS: polyethylene glycoL POWDER 17 GM (MIRALAX) PACK PO SCH (21:51)
[2019-07-22] MEDS: LACTULOSE SYRUP 10GM/15ML (ENULOSE) 30ML UDC PO SCH (21:51)
[2019-07-22] MEDS: SENNA W/DOCUSATE (SENOKOT S) TABLET PO SCH (21:52)
[2019-07-23 00:37] VITALS: BP 148/76
[2019-07-23 04:00] VITALS: BP 147/69
[2019-07-23 04:57] LABS: BASOPHILS % (AUTO) 0 % (0-10); EOSINOPHILS # (AUTO) 0.2 10^3/uL (0.0-0.3); EOSINOPHILS % (AUTO) 3 % (0-10); HEMATOCRIT 23 % (35-52); LYMPHOCYTES # (AUTO) 1.3 X 10^3 (1.0-4.0); LYMPHOCYTES % (AUTO) 18 % (12-44); MEAN CORPUSCULAR HEMOGLOBIN 27 PG (25-34); MEAN CORPUSCULAR HGB CONC 31 G/DL (32-36); MEAN CORPUSCULAR VOLUME 88 FL (80-99); MEAN PLATELET VOLUME 10.4 FL (7.4-10.4); MONOCYTES # (AUTO) 0.5 X 10^3 (0.0-1.0); MONOCYTES % (AUTO) 7 % (0-12); NEUTROPHILS # (AUTO) 5.1 X 10^3 (1.8-7.8); NEUTROPHILS % (AUTO) 72 % (42-75); PLATELET COUNT 148 10^3/uL (130-400); RED CELL DISTRIBUTION WIDTH 16.6 % (10.0-14.5); WHITE BLOOD COUNT 7.1 10^3/uL (4.3-11.0)
[2019-07-23 05:06] LABS: CALCIUM 8.2 MG/DL (8.5-10.1)
[2019-07-23 05:11] LABS: CREATININE SERUM 1.04 MG/DL (0.60-1.30); PHOSPHORUS 2.1 MG/DL (2.3-4.7)
[2019-07-23] MEDS: POTASSIUM CL 10MEQ/50ML IVPB 50 ML IV SCH (06:08)
[2019-07-23] MEDS: MAGNESIUM 1 GM/100 ML IVPB 100 ML IV SCH (06:08)
[2019-07-23] MEDS: inSUlin ASPART (NovoLOG) 1 UNIT/0.01 ML (CHARGE PER UNIT) SC SCH ×4 (06:08→21:54)
[2019-07-23] MEDS: KCL 20 MEQ TAB (K-DUR) PO SCH (06:08)
[2019-07-23 07:38] VITALS: BP 167/71
[2019-07-23] MEDS: ADVAIR HFA 115/21 MCG INHALER 8 GM IH SCH ×2 (08:01→18:35)
--- NOTE | 2019-07-23 08:32 | Diagnostic Imaging Report ---
Indication: Dyspnea. Comparison: 07/22/2019. Discussion: Single portable upright view of the chest was obtained. Mild cardiomegaly is stable. Implantable loop recorder is again noted along with postoperative changes within the cervical spine, stable. No pleural fluid or pneumothorax. Patchy infiltrates are present bilaterally, increased on the right and stable to increased on the left. Findings are nonspecific and could be seen with atelectasis, pneumonia, or less likely edema. No central venous congestion. Impression: 1. Worsening nonspecific infiltrates as described. Stable cardiomegaly. Dictated by: Dictated on workstation # [id number]
[2019-07-23] MEDS: GABAPENTIN 600 MG (NEURONTIN) TAB PO SCH ×2 (08:53→21:52)
[2019-07-23] MEDS: HYDROcodone/APAP 10 MG/325 MG (LORTAB) TAB PO PRN ×3 (08:53→23:48)
[2019-07-23] MEDS: amLODIPine 10 MG (NORVASC) TAB PO SCH (08:53)
[2019-07-23] MEDS: LACTULOSE SYRUP 10GM/15ML (ENULOSE) 30ML UDC PO SCH ×2 (08:53→21:53)
--- NOTE | 2019-07-23 10:20 | Progress Note ---
Subjective Date Seen by a Provider: July 23, 2019 Time Seen by a Provider: 09:15 Subjective/Events-last exam Patient seen with Dr. Edmondson. Patient reports doing well. Still having right orbital pain. Abdominal pain improving. Tolerating diet. Objective Exam Vital Signs Date Time Temp Pulse Resp B/P (MAP) Pulse Ox O2 Delivery O2 Flow Rate FiO2 07/23/19 08:01 93 Nasal Cannula 3.00 07/23/19 07:38 36.5 113 20 167/71 (103) 96 Nasal Cannula 3.00 07/23/19 04:00 37.1 104 20 147/69 (95) 99 Nasal Cannula 3.00 07/23/19 00:37 36.8 101 22 148/76 (100) 96 Nasal Cannula 3.00 07/22/19 20:00 97 Nasal Cannula 3.00 07/22/19 19:50 35.8 97 15 183/79 (113) 100 Nasal Cannula 3.00 07/22/19 19:05 97 Nasal Cannula 3.00 07/22/19 16:24 36.1 98 20 157/67 (97) 99 Nasal Cannula 3.00 07/22/19 12:00 36.2 94 21 164/78 (106) 96 Nasal Cannula 3.00 I & O 07/23/19 07:00 Intake Total 4100 ml Output Total 1125 ml Balance 2975 ml Capillary Refill : Less Than 3 Seconds General Appearance: No Apparent Distress, WD/WN HEENT: Other (Right orbital ecchymosis with edema noted.) Neck: Full Range of Motion, Normal Inspection, Supple Respiratory: Normal Breath Sounds, No Accessory Muscle Use, No Respiratory Distress Cardiovascular: Regular Rate, Rhythm, No Edema Gastrointestinal: soft, tenderness (diffuse) Extremity: Normal Inspection, Normal Range of Motion Neurologic/Psychiatric: Alert, Oriented x3 Skin: Normal Color, Warm/Dry Results Lab Laboratory Tests 07/22/19 11:07: Glucometer 379H 07/22/19 16:27: Glucometer 291H 07/22/19 21:14: Glucometer 365H 07/23/19 04:40: White Blood Count 7.1, Red Blood Count 2.56L, Hemoglobin 7.0L, Hematocrit 23L, Mean Corpuscular Volume 88, Mean Corpuscular Hemoglobin 27, Mean Corpuscular Hemoglobin Concent 31L, Red Cell Distribution Width 16.6H, Platelet Count 148, Mean Platelet Volume 10.4, Neutrophils (%) (Auto) 72, Lymphocytes (%) (Auto) 18, Monocytes (%) (Auto) 7, Eosinophils (%) (Auto) 3, Basophils (%) (Auto) 0, Neutrophils # (Auto) 5.1, Lymphocytes # (Auto) 1.3, Monocytes # (Auto) 0.5, Eosinophils # (Auto) 0.2, Basophils # (Auto) 0.0, Sodium Level 137, Potassium Level 4.0, Chloride Level 106, Carbon Dioxide Level 20L, Anion Gap 11, Blood Urea Nitrogen 20H, Creatinine 1.04, Estimat Glomerular Filtration Rate 54, BUN/Creatinine Ratio 19, Glucose Level 190H, Calcium Level 8.2L, Phosphorus Level 2.1L, Magnesium Level 2.0 Microbiology 07/20/19 MRSA Screen - Final, Complete MRSA not isolated Assessment/Plan Assessment/Plan Assess & Plan/Chief Complaint A 63 year old female with severe anemia, right meidal orbital fracture, right paranasal hemo-sinus, fall, luq abdominal pain VSS Hgb stable at 7.0 follow hgb and transfuse blood products as needed. neurochecks ct abd/pelvis with contrast-no acute traumatic injury hold anticoagulation Continue labs Continue diet Will continue to monitor Clinical Quality Measures DVT/VTE Risk/Contraindication: Risk Factor Score Per Nursin RFS Level Per Nursing on Admit: 3=High CLEO ZUÑIGA [employer] FINISHER July 23, 2019 10:20
--- NOTE | 2019-07-23 11:15 | Progress Note - Hospitalist ---
Subjective HPI/CC On Admission Date Seen by Provider: July 23, 2019 Time Seen by Provider: 11:30 Subjective/Events-last exam Patient doing much better Hemoglobin 7.0 today down one-point Will initiate suppository and soapsuds enema because bowels still have not moved him will test Hemoccult all stools Will reach out to hematology consult I will review previous rehab stay because I think I have consulted hematology at that time also Creatinine good at 1.0 Reached out to hematology Dr. France who will see the patient tomorrow Took her own shower today Walking around pretty well Edema noted so will wrap legs with wide padmini wraps Does not think she will need rehab stay once this is all resolved for her. Review of Systems General: Fatigue Cardiovascular: Edema Gastrointestinal: Constipation Objective Exam Vital Signs Vital Signs Date Time Temp Pulse Resp B/P (MAP) Pulse Ox O2 Delivery O2 Flow Rate FiO2 07/23/19 11:22 36.3 94 20 147/66 (93) 98 Nasal Cannula 3.00 Capillary Refill : Less Than 3 Seconds General Appearance: No Apparent Distress, WD/WN, Chronically ill Respiratory: Chest Non Tender, Lungs Clear, Normal Breath Sounds, No Accessory Muscle Use, No Respiratory Distress Cardiovascular: Regular Rate, Rhythm, No Gallop, No JVD, No Murmur, Normal Peripheral Pulses Extremity: Pedal Edema Neurologic/Psychiatric: Alert, Oriented x3, No Motor/Sensory Deficits, Normal Mood/Affect Skin: Normal Color, Warm/Dry Results/Procedures Lab Laboratory Tests 07/23/19 04:40 Patient resulted labs reviewed. Assessment/Plan Assessment and Plan Assess & Plan/Chief Complaint (1) Right orbit fracture Status: Acute Assessment & Plan: Trauma Surgery consulted. Extraocular movements intact and pupils responsive, Optometry for limited dilated eye exam. Qualifiers: Qualified Codes: S02.85XA - Fracture of orbit, unspecified, initial encounter for closed fracture (2) Acute renal insufficiency Status: Acute Assessment & Plan: IVF decreased. Will monitor closely and likely be difficult balance between renal function and pulmonary edema. (3) Diabetes mellitus, type 2 Status: Chronic Assessment & Plan: When safe for PO, diabetic diet. Sliding scale insulin. Now on CLD Qualifiers: (4) A-fib Status: Chronic Assessment & Plan: On Xarelto at home, holding due to severe anemia. (5) HTN (hypertension) Status: Chronic Assessment & Plan: Will resume home medications as blood pressure indicates. Qualifiers: Qualified Codes: I10 - Essential (primary) hypertension (6) HLD (hyperlipidemia) Status: Chronic (7) Congestive heart failure (CHF) Status: Chronic Assessment & Plan: BNP elevated on admit, one dose of IV lasix given on admit and creatinine worsened yesterday, will hold for now and monitor respiratory status closely. Qualifiers: Qualified Codes: I50.32 - Chronic diastolic (congestive) heart failure (8) COPD (chronic obstructive pulmonary disease) Status: Chronic Assessment & Plan: No evidence of exacerbation. On baseline oxygen. (9) Multilevel degenerative disc disease Status: Chronic Assessment & Plan: Resumed home hydrocodone. (10) Syncope Status: Acute Assessment & Plan: Note that she had syncope in past and had previously had sinus pauses. Appears this time was related to exertional hypoxia with severe anemia. Monitor with blood transfusion. (11) Severe anemia Status: Acute Assessment & Plan: Has had anemia in past and reportedly had EGD/colonoscopy in 2019 in but results are unknown to me at this time. Started on IV PPI, monitor H&H. Surgery consulted. Hgb 8.0 s/p 4 units (12) Carotid stenosis Assessment & Plan: Per Cardiology notes Feb 2019 had severe carotid stenosis and needed follow up with Vascular, unclear if this has been done, repeat carotid US. (13) Coronary artery disease Status: Chronic Qualifiers: Qualified Codes: I25.10 - Atherosclerotic heart disease of [place] coronary artery without angina pectoris (14) DVT prophylaxis Status: Acute Assessment & Plan: No pharmacologic due to severe anemia. Plan: Hematology consultation Wraps to legs Monitor hgb Clinical Quality Measures DVT/VTE Risk/Contraindication: Risk Factor Score Per Nursin RFS Level Per Nursing on Admit: 3=High ZACK ESCOBEDO DO July 23, 2019 11:15
[2019-07-23 11:22] VITALS: BP 147/66
[2019-07-23 15:30] VITALS: BP 134/64
[2019-07-23] MEDS ORDERED: BISACODYL 10 MG SUPP (DULCOLAX) PR ONE (17:30)
--- NOTE | 2019-07-23 18:30 | NUR ---
DULCOLAX SUPP. GIVEN. HAD A LARGE FORMED DARK REDDISH-BROWN STOOL. STOOL FOR OCCULT BLOOD SENT TO LAB.
--- NOTE | 2019-07-23 18:59 | NUR ---
STOOL FOR OB POSITIVE. DR. ESCOBEDO NOTIFIED AND DR. MACE NOTIFIED.
[2019-07-23] MEDS: SENNA W/DOCUSATE (SENOKOT S) TABLET PO SCH (21:52)
[2019-07-23] MEDS: polyethylene glycoL POWDER 17 GM (MIRALAX) PACK PO SCH (21:53)
[2019-07-24] VITALS: BP 154/71
[2019-07-24 05:13] LABS: BASOPHILS % (AUTO) 0 % (0-10); EOSINOPHILS # (AUTO) 0.2 10^3/uL (0.0-0.3); EOSINOPHILS % (AUTO) 3 % (0-10); HEMATOCRIT 25 % (35-52); HEMOGLOBIN 7.6 G/DL (11.5-16.0); LYMPHOCYTES # (AUTO) 1.1 X 10^3 (1.0-4.0); LYMPHOCYTES % (AUTO) 17 % (12-44); MEAN CORPUSCULAR HEMOGLOBIN 27 PG (25-34); MEAN CORPUSCULAR HGB CONC 30 G/DL (32-36); MEAN CORPUSCULAR VOLUME 90 FL (80-99); MEAN PLATELET VOLUME 10.6 FL (7.4-10.4); MONOCYTES # (AUTO) 0.4 X 10^3 (0.0-1.0); MONOCYTES % (AUTO) 6 % (0-12); NEUTROPHILS # (AUTO) 4.9 X 10^3 (1.8-7.8); NEUTROPHILS % (AUTO) 74 % (42-75); PLATELET COUNT 161 10^3/uL (130-400); WHITE BLOOD COUNT 6.6 10^3/uL (4.3-11.0)
[2019-07-24] MEDS ORDERED: FUROSEMIDE 40 MG/4 ML INJ (LASIX) IVP ONE (05:15)
--- NOTE | 2019-07-24 05:33 | Pulmonary Progress Note ---
Subjective Time Seen by a Provider: 05:32 Subjective/Events-last exam NO complications noted. Sepsis Event Evaluation Height, Weight, BMI Height: 5'4.00" Weight: 219lbs. 1.0oz. 99.204128gp; 37.89 BMI Method:Stated Exam Exam Vital Signs Date Time Temp Pulse Resp B/P (MAP) Pulse Ox O2 Delivery O2 Flow Rate FiO2 07/24/19 00:00 36.9 101 18 154/71 (98) 99 Nasal Cannula 3.00 07/23/19 21:00 Nasal Cannula 3.00 07/23/19 15:30 36.4 87 18 134/64 (87) 99 Nasal Cannula 3.00 07/23/19 11:22 36.3 94 20 147/66 (93) 98 Nasal Cannula 3.00 07/23/19 09:00 96 Nasal Cannula 3.00 07/23/19 08:01 93 Nasal Cannula 3.00 07/23/19 07:38 36.5 113 20 167/71 (103) 96 Nasal Cannula 3.00 I & O 07/24/19 07:00 Intake Total 2240 ml Balance 2240 ml Height & Weight Height: 5'4.00" Weight: 219lbs. 1.0oz. 99.747510zl; 37.89 BMI Method:Stated General Appearance: No Apparent Distress, WD/WN, Chronically ill HEENT: Other (Right orbital ecchymosis with edema noted.) Neck: Full Range of Motion, Normal Inspection, Supple Respiratory: Chest Non Tender, Lungs Clear, Normal Breath Sounds, No Accessory Muscle Use, No Respiratory Distress Cardiovascular: Regular Rate, Rhythm, No Gallop, No JVD, No Murmur, Normal Peripheral Pulses Capillary Refill: Less Than 3 Seconds Gastrointestinal: soft, tenderness (diffuse) Extremity: Pedal Edema Neurologic/Psychiatric: Alert, Oriented x3, No Motor/Sensory Deficits, Normal Mood/Affect Skin: Normal Color, Warm/Dry Results Lab Laboratory Tests 07/23/19 04:40 07/24/19 04:24 Assessment/Plan Assessment/Plan Severe Anemia -S/p 3 units of PRBC -Occult stool pending -Pt takes xeralto at home ARF Right orbital fracture -Surgery following COPD with home oxygen at 3 liters -give lasix 40mg IV x 1 -Check BNP CAD with hx of stent placement Obesity with JORGE LUIS and probable OHS -pt is on CPAP therapy DM II ELIZABETH FRANCISCO DO July 24, 2019 05:33
[2019-07-24 05:38] LABS: CALCIUM 8.3 MG/DL (8.5-10.1); CREATININE SERUM 1.09 MG/DL (0.60-1.30); MAGNESIUM 2.1 MG/DL (1.6-2.4); PHOSPHORUS 2.4 MG/DL (2.3-4.7); POTASSIUM 4.1 MMOL/L (3.6-5.0)
[2019-07-24] MEDS: POTASSIUM CL 10MEQ/50ML IVPB 50 ML IV SCH (05:40)
[2019-07-24] MEDS: MAGNESIUM 1 GM/100 ML IVPB 100 ML IV SCH (05:41)
[2019-07-24] MEDS: KCL 20 MEQ TAB (K-DUR) PO SCH (05:41)
[2019-07-24] MEDS: inSUlin ASPART (NovoLOG) 1 UNIT/0.01 ML (CHARGE PER UNIT) SC SCH ×4 (06:41→21:32)
[2019-07-24] MEDS: ADVAIR HFA 115/21 MCG INHALER 8 GM IH SCH ×2 (07:10→18:27)
[2019-07-24 08:05] VITALS: BP 152/76
--- NOTE | 2019-07-24 08:35 | Diagnostic Imaging Report ---
INDICATION: Dyspnea EXAMINATION: Chest 07/24/2019 COMPARISON: 07/23/2019 FINDINGS: There is a loop recorder device overlying the left aspect of the heart. There is cardiomegaly. Pulmonary vascular congestion. Findings of edema throughout both lungs. No infiltrates, effusions or pneumothorax. IMPRESSION: Pulmonary edema. Dictated by: Dictated on workstation # [id number]
[2019-07-24] MEDS: LACTULOSE SYRUP 10GM/15ML (ENULOSE) 30ML UDC PO SCH ×2 (08:45→21:36)
[2019-07-24] MEDS: GABAPENTIN 600 MG (NEURONTIN) TAB PO SCH ×2 (08:45→21:32)
[2019-07-24] MEDS: amLODIPine 10 MG (NORVASC) TAB PO SCH (08:45)
--- NOTE | 2019-07-24 09:53 | Physical Therapy Evaluation ---
PT Evaluation-General Medical Diagnosis Admission Date Jul 20, 2019 at 17:37 Medical Diagnosis: anemia Onset Date: Jul 20, 2019 Therapy Diagnosis Therapy Diagnosis: decreased mobility Height/Weight Height (Feet): 5 Height (Inches): 4.00 Weight (Pounds): 219 Weight (Ounces): 1.0 Precautions Precautions/Isolations: Fall Prevention Weight Bear Status Right Lower Extremity: Right Full Weight Bearing Left Lower Extremity: Left Full Weight Bearing Referral Physician: Dr. Lopez Reason for Referral: Evaluation/Treatment Medical History Pertinent Medical History: Atrial Fib, CAD, COPD, DM, GERD, HTN Additional Medical History neck surgery Current History Presented to ER after falling, pain in L upper quadrant. Reviewed History: Yes Social History Home: Single Level Current Living Status: Spouse Entry Into Home: Stairs With Railing PT Steps Into Home: 3 Prior Prior Level of Function SCALE: Activities may be completed with or without assistive devices. 6-Wgqfemncxm-kvwpetv completes the activity by him/herself with no assistance from a helper. 5-Set-up or Clean-up Assistance-helper sets up or cleans up; patient completes activity. Parnell assists only prior to or following the activity. 4-Supervision or Touching Assistance-helper provides verbal cues and/or touching/steadying and/or contact guard assistance as patient completes activity. Assistance may be provided throughout the activity or intermittently. 3-Partial/Moderate Assistance-helper does LESS THAN HALF the effort. Parnell lifts, holds or supports trunk or limbs, but provides less than half the effort. 2-Substantial/Maximal Assistance-helper does MORE THAN HALF the effort. Parnell lifts or holds trunk or limbs and provides more than half the effort. 7-Jalqqodih-hafdtp does ALL the effort. Patient does none of the effort to complete the activity. Or, the assistance of 2 or more helpers is required for the patient to complete the activity. If activity was not attempted, code reason: 7-Patient Refused. 9-Not Applicable-not attempted and the patient did not perform the activity b efore the current illness, exacerbation or injury. 10-Not Attempted due to Environmental Limitations-(lack of equipment, weather restraints, etc.). 88-Not Attempted due to Medical Conditions or Safety Concerns. Bed Mobility: 6 Transfers (B,C,W/C): 6 Gait: 6 Stairs: 6 Indoor Mobility (Ambulation): Independent Stairs: Independent Prior Devices Use: None Prior Device Use: Has a walker at home but (I) with ambulation PT Evaluation-Current Subjective Pt. in bed, agrees to therapy. Pt. reports pain in lateral aspects of abdomen and R eye, no objective pain rating. During gait, patient states "I can't see...it just goes black." Pt/Family Goals home with spouse Objective Patient Orientation: Person, Place, Time, Situation Attachments: Oxygen (2L) ROM/Strength ROM Upper Extremities See OT ROM Lower Extremities WFL Strength Upper Extremities See OT Strength Lower Extremities Grossly 4/5 (B) hip, knee, ankle Integumentary/Posture Integumentary padmini wraps (B) lower legs; bruising at R eye Posture WFL Sensory Vision: Functional Hearing: Functional Sensation Right Upper Extremit: Intact Sensation Left Upper Extremity: Intact Sensation Right Lower Extremit: Intact Sensation Left Lower Extremity: Intact Transfers Lying to Sitting/Side of Bed(Q: 6 Sit to Stand (QC): 4 Gait Does the Patient Walk?: Yes Mode of Locomotion: Walk Anticipated Mode of Locomotion: Walk Walk 150 ft (QC): 4 Distance: 150 ft Gait Assistive Device: FWW Comments/Gait Description very slow gait speed, decreased step length Balance Sitting Static: Good Sitting Dynamic: Good Standing Static: Fair Standing Dynamic: Fair Treatment gait, seated LE exercises x 10 reps: APs, LAQ, ervin Assessment/Needs Pt. is a 63 y.o. female with decreased mobility following a fall at home. Pt. is currently CGA with ambulating with a FWW; she takes increased time to ambulate 150 ft and c/o vision problems. Pt. in bedside chair post session with all needs met, OT present. Pt. would benefit from skilled PT to improve mobility for safe return home. 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 PT Halfway Goals Time Frame: July 31, 2019 Roll Left & Right (QC): 6 Sit to Lying (QC): 6 Lying-Sitting on Side/Bed(QC): 6 Sit to Stand (QC): 6 Chair/Zeo-ey-Gjydw Xfer(QC): 6 Does the Patient Walk: Yes Walk 150 ft (QC): 6 PT Plan Problem List Problem List: Activity Tolerance, Functional Strength, Safety, Balance, Gait, Transfer, Bed Mobility, ROM Treatment/Plan Treatment Plan: Continue Plan of Care Treatment Plan: Bed Mobility, Concurrent Therapy, Education, Functional Activity Diane, Functional Strength, Gait, Safety, Therapeutic Exercise, Transfers Treatment Duration: July 31, 2019 Frequency: 6 times per week Estimated Hrs Per Day: .25 hour per day Patient and/or Family Agrees t: Yes Time/GCodes Time In: 910 Time Out: 0932 Total Billed Treatment Time: 22 Total Billed Treatment 1, DAVIDM 10', GT 12' FRANKLIN HOLLINGSWORTH PT July 24, 2019 09:53
--- NOTE | 2019-07-24 10:16 | Progress Note - Hospitalist ---
Subjective HPI/CC On Admission Date Seen by Provider: July 24, 2019 Time Seen by Provider: 10:00 Subjective/Events-last exam Hgb 7.6 Talked to the pt and Dr. Hussein and will have EGD and colonoscopy tomorrow Dr. France will see her for hematology and anemia issues May need rehab after all Overall doing very well otherwise Joey wraps is helping the edema Bowels are really moving very well and hemoccult was positive for two stools Review of Systems General: Fatigue Cardiovascular: Edema Gastrointestinal: Nausea Objective Exam Vital Signs Vital Signs Date Time Temp Pulse Resp B/P (MAP) Pulse Ox O2 Delivery O2 Flow Rate FiO2 07/24/19 18:27 97 Nasal Cannula 2.00 07/24/19 15:57 36.6 100 18 183/78 (113) Capillary Refill : Less Than 3 Seconds General Appearance: No Apparent Distress, WD/WN, Chronically ill Respiratory: Chest Non Tender, Lungs Clear, Normal Breath Sounds, No Accessory Muscle Use, No Respiratory Distress Cardiovascular: Regular Rate, Rhythm, No Gallop, No JVD, No Murmur, Normal Peripheral Pulses Extremity: Pedal Edema Neurologic/Psychiatric: Alert, Oriented x3, No Motor/Sensory Deficits, Normal Mood/Affect Results/Procedures Lab Laboratory Tests 07/24/19 04:24 Patient resulted labs reviewed. Assessment/Plan Assessment and Plan Assess & Plan/Chief Complaint (1) Right orbit fracture Status: Acute Assessment & Plan: Trauma Surgery consulted. Extraocular movements intact and pupils responsive, Optometry for limited dilated eye exam. Qualifiers: Qualified Codes: S02.85XA - Fracture of orbit, unspecified, initial encounter for closed fracture (2) Acute renal insufficiency Status: Acute Assessment & Plan: IVF decreased. Will monitor closely and likely be difficult balance between renal function and pulmonary edema. (3) Diabetes mellitus, type 2 Status: Chronic Assessment & Plan: When safe for PO, diabetic diet. Sliding scale insulin. Now on CLD Qualifiers: (4) A-fib Status: Chronic Assessment & Plan: On Xarelto at home, holding due to severe anemia. (5) HTN (hypertension) Status: Chronic Assessment & Plan: Will resume home medications as blood pressure indicates. Qualifiers: Qualified Codes: I10 - Essential (primary) hypertension (6) HLD (hyperlipidemia) Status: Chronic (7) Congestive heart failure (CHF) Status: Chronic Assessment & Plan: BNP elevated on admit, one dose of IV lasix given on admit and creatinine worsened yesterday, will hold for now and monitor respiratory status closely. Qualifiers: Qualified Codes: I50.32 - Chronic diastolic (congestive) heart failure (8) COPD (chronic obstructive pulmonary disease) Status: Chronic Assessment & Plan: No evidence of exacerbation. On baseline oxygen. (9) Multilevel degenerative disc disease Status: Chronic Assessment & Plan: Resumed home hydrocodone. (10) Syncope Status: Acute Assessment & Plan: Note that she had syncope in past and had previously had sinus pauses. Appears this time was related to exertional hypoxia with severe anemia. Monitor with blood transfusion. (11) Severe anemia Status: Acute Assessment & Plan: Has had anemia in past and reportedly had EGD/colonoscopy in 2019 in but results are unknown to me at this time. Started on IV PPI, monitor H&H. Surgery consulted. Hgb 8.0 s/p 4 units. EGD/Colon tomorrow 07/25/19 (12) Carotid stenosis Assessment & Plan: Per Cardiology notes Feb 2019 had severe carotid stenosis and needed follow up with Vascular, unclear if this has been done, repeat carotid US. (13) Coronary artery disease Status: Chronic Qualifiers: Qualified Codes: I25.10 - Atherosclerotic heart disease of [place] coronary artery without angina pectoris (14) DVT prophylaxis Status: Acute Assessment & Plan: No pharmacologic due to severe anemia. Plan: Hematology consultation Wraps to legs Monitor hgb Scopes tomorrow Clinical Quality Measures DVT/VTE Risk/Contraindication: Risk Factor Score Per Nursin RFS Level Per Nursing on Admit: 3=High ZACK ESCOBEDO DO July 24, 2019 10:16
--- NOTE | 2019-07-24 10:31 | Oncology Consultation ---
Visit Information Visit Information Date of Admission Jul 20, 2019 at 17:37 Attending Physician Shahrzad Hobbs MD Admitting Physician Obdulio Cabral MD Chief Complaint Anemia Interval History Ms. Rdz is a 63 year old white female who admitted to the hospital on when she passed out at home and brought to ER and found out Hb 3.5, Hct 12. She had normal CBC on 07/21/2018 WBC 12, Hb 11.6, Hct 39, Plt 396. She then become anemia Hb 8.9, Hct 29, MCV 88 and MCHC 36, normal WBC 8.2 and Plt 190. She has been chronic anemia since then. She has a congenital heart murmur, CAD, s/p two stents and also aFib on Xeralto. She had another heart attack last year even though she had the [address] 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 She had 4 units of RBC transfusion since this admission and she also got IV iron during the admission.. She has positive stool occult blood and will have GI scope tomorrow. Right now she is feeling much better since the transfusion. I consulted the patient on: 07/24/19 10:29 Time Seen by Provider: 11:30 Review of Systems Constitutional: weakness Respiratory: dyspnea on exertion Cardiovascular: see HPI Gastrointestinal: no symptoms reported Health Status Allergies Coded Allergies: morphine (Verified Adverse Reaction, Severe, hallucination, 07/12/18) Home Medications Albuterol Sulfate (Ventolin Hfa) 18 Gm Hfa.aer.ad, 2 PUFF PO Q6H PRN for SHORTNESS OF BREATH, (Reported) Amlodipine Besylate (Amlodipine Besylate) 10 Mg Tablet, 10 MG PO DAILY, (Reported) Aspirin (Aspirin EC) 81 Mg Tablet.dr, 81 MG PO DAILY, (Reported) Atorvastatin Calcium (Atorvastatin Calcium) 40 Mg Tablet, 40 MG PO HS, (Reported) Calcium Citrate/Vitamin D2 (Calcium with Vit D Tablet) 1 Each Tablet, 1 EACH PO DAILY, (Reported) Cinnamon Bark (Cinnamon) 500 Mg Capsule, 500 MG PO BID, (Reported) Cyclobenzaprine HCl (Cyclobenzaprine HCl) 10 Mg Tablet, 20 MG PO BID PRN for MUSCLE SPASMS, (Reported) Doxazosin Mesylate (Doxazosin Mesylate) 1 Mg Tablet, 1 MG PO HS, (Reported) Dulaglutide (Trulicity) 0.75 Mg/0.5 Ml Pen.injctr, 0.75 MG SC [place], (Reported) Fenofibrate,Micronized (Fenofibrate) 134 Mg Capsule, 134 MG PO HS, (Reported) Fluticasone/Salmeterol (Advair Hfa 115-21 Mcg Inhaler) 12 Gm Hfa.aer.ad, 2 PUFF IH BID@, #1 Prescribed by: ZACK ESCOBEDO on 02/23/198 Gabapentin (Gabapentin) 600 Mg Tablet, 600 MG PO BID, (Reported) Hydrocodone Bit/Acetaminophen (HYDROcodone/APAP 10/325 TABLET) 1 Each Tablet, 1 EA PO TID PRN for PAIN-MODERATE (5-7), (Reported) Insulin Aspart (Novolog) 100 Unit/1 Ml Susp, UNIT SQ TIDAC, (Reported) USES PER SLIDING SCALE Insulin Determir (Levemir) 1,000 Units/10 Ml Soln, 10 UNIT SQ HS for 7 Days Prescribed by: ZACK ESCOBEDO on 07/26/19 0945 Ipratropium/Albuterol Sulfate (Iprat-Albut 0.5-3(2.5) mg/3 ml) 3 Ml Ampul.neb, 3 ML IH BID PRN for SHORTNESS OF BREATH, (Reported) Isosorbide Mononitrate (Isosorbide Mononitrate ER) 60 Mg Tab, 60 MG PO DAILY, (Reported) Magnesium Oxide (Magnesium) 400 Mg Tablet, 400 MG PO HS, (Reported) Metformin HCl (Metformin HCl ER) 500 Mg Tab.er.24h, 500 MG PO BID WITH MEALS, (Reported) Metoprolol Succinate (Metoprolol Succinate) 25 Mg Tab.er.24h, 25 MG PO DAILY, (Reported) Multivitamin-Min/Iron/FA/Vit K (Multi-Day Plus Minerals Tablet) 1 Each Tablet, 1 TAB PO DAILY, (Reported) Dracut-3/Dha/Epa/Fish Oil (Fish Oil 1,000 mg Softgel) 1 Each Capsule, 1,000 MG PO DAILY, (Reported) Pantoprazole Sodium (Pantoprazole Sodium) 40 Mg Tablet.dr, 40 MG PO BID, #60 Prescribed by: ZACK ESCOBEDO on 07/26/19 0945 Potassium Gluconate (Potassium Gluconate) 90 Mg Tablet, 90 MG PO DAILY, (Reported) Primidone (Mysoline) 50 Mg Tablet, 50 MG PO HS, (Reported) Sennosides/Docusate Sodium (Stool Softener-Stimulant Lax) 1 Each Tablet, 2 TAB PO HS, (Reported) Spironolactone (Aldactone) 25 Mg Tablet, 25 MG PO DAILY, (Reported) Sucralfate (Carafate) 1 Gm Tablet, 1 GM PO ACHS, #120 Prescribed by: ZACK ESCOBEDO on 07/26/19 0945 Torsemide (Torsemide) 10 Mg Tablet, 10 MG PO DAILY, (Reported) Turmeric/Turmeric Root Extract (Turmeric 500 mg Capsule) 1 Each Capsule, 2 EACH PO HS, (Reported) IBV-Aqaazd-Uwqvre Hx Patient Social History Alcohol Use: Denies Use Recreational Drug Use: No Smoking Status: Former Smoker Type Used: Cigarettes 2nd Hand Smoke Exposure: No Recent Foreign Travel: No Contact w/other who traveled: No Recent Infectious Disease Expo: No Recent Hopitalizations: Yes Immunizations Up To Date Tetanus Booster (TDap): Unknown Date of Pneumonia Vaccine: Mar 05, 2013 Date of Influenza Vaccine: Jan 12, 2019 Family Medical History Significant Family History: Diabetes, Hypertension Family History: Patient reports no known family medical history. Physical Exam Vital Signs Vital Signs - First Documented 07/20/19 07/20/19 16:30 18:20 Temp 36.7 Pulse 105 Resp 30 B/P (MAP) 122/64 (83) Pulse Ox 100 O2 Delivery Nasal Cannula O2 Flow Rate 2.00 Capillary Refill : Less Than 3 Seconds Height, Weight, BMI Height: 5'4.00" Weight: 219lbs. 1.0oz. 99.771711rq; 37.89 BMI Method:Stated General Appearance: No Apparent Distress, Chronically ill, Other (pale) HEENT: PERRL/EOMI Respiratory: No Accessory Muscle Use, No Respiratory Distress Extremity: No Pedal Edema Neurologic/Psychiatric: Alert, Oriented x3 Data Review Labs Laboratory Tests 07/26/19 04:06 Laboratory Tests 07/23/19 15:56: Glucometer 288H 07/23/19 18:30: Stool Occult Blood Immunoassay POSITIVEH 07/23/19 19:58: Stool Occult Blood Immunoassay POSITIVEH 07/23/19 20:25: Glucometer 312H 07/24/19 04:24: Red Blood Count 2.79L, Hemoglobin 7.6L, Hematocrit 25L, Mean Corpuscular Hemoglobin Concent 30L, Red Cell Distribution Width 18.0H, Mean Platelet Volume 10.6H, Glucose Level 213H, Calcium Level 8.3L, B-Type Natriuretic Peptide 189.0H 07/24/19 11:00: Glucometer 300H 07/24/19 11:10: 07/24/19 15:17: Stool Occult Blood Immunoassay POSITIVEH 07/24/19 15:50: Glucometer 286H 07/24/19 21:03: Glucometer 243H 07/25/19 04:15: Red Blood Count 2.62L, Hemoglobin 7.1L, Hematocrit 24L, Mean Corpuscular Hemoglobin Concent 30L, Red Cell Distribution Width 17.9H, Mean Platelet Volume 10.6H, Lymphocytes # (Auto) 0.9L, Glucose Level 143H, Calcium Level 8.0L 07/25/19 05:26: Glucometer 161H 07/25/19 10:58: Glucometer 181H 07/25/19 15:31: Glucometer 208H 07/25/19 20:40: Glucometer 299H 07/26/19 04:06: Red Blood Count 2.86L, Hemoglobin 7.8L, Hematocrit 26L, Mean Corpuscular Hemoglobin Concent 30L, Red Cell Distribution Width 18.2H, Mean Platelet Volume 10.8H, Glucose Level 229H 07/26/19 11:22: Glucometer 278H Impression & Plan Impression & Plan IMP: 1. Severe normocytic anemia. No iron study was done before the transfusion of RBC and IV iron. Positive stool occult blood testsx2. Was on Xarelto and now on hold. Normal WBC and Plt. 2. GI bleeding 3. CAD, aFib, s/p 2 cardiac stents placement. 4. Congenital heart murmur? 5. Intermittent renal insufficiency. Cr 1.2-1.4 Plan: 1. Pt is NOT a typical iron deficiency anemia even though she has many factors for the bleeding and does have positive stool occult blood 2. Agree with GI scope. 3. I will see her in 2-3 weeks as out-pt to see how much she recovers from this event and then decide if we need to do a bone marrow exam to evaluate possible MDS ringsidering anemia. I have given patient the appointment card to see me at the cancer center. 4. It will be a very challenge issue for her anti-coagulation. Agree to hold off the anti-coagulation for now. If her Hb is not above 8 and stay above 8, I would not recommend anti-coagulation. GEETA HURT MD July 24, 2019 10:31
[2019-07-24] MEDS ORDERED: GOLYTELY POWDER 4000 ML BTL PO NR (11:00)
[2019-07-24] MEDS: HYDROcodone/APAP 10 MG/325 MG (LORTAB) TAB PO PRN (11:15)
--- NOTE | 2019-07-24 13:14 | NUR ---
RD ASSESSMENT PMHx: DM; HTN; HLD; afib; CHF; COPD; CAD; anemia PT INTERACTION: Pt was awake and pleasant during nutrition assessment. Pt states current appetite is good, and has been for some time. Note avg PO intake 94% x3d, per chart review. Pt states following a regular diet at home and has no issues with chewing/swallowing food. Pt states no recent issues with nausea and vomiting at this time. Pt states some recent issues with constipation. Note last BM was 5/3 and pt currently on bowel regimen of miralax HS, and senna HS, per chart review. Pt states no recent wt changes. Note recent 11# wt gain x5mon, per chart review. Pt states current DM management is "all over the place." Note unable to determine recent HbA1c, per chart review. ABNORMAL NUTRITION-RELATED LAB VALUES LOW: Ca 8.3 HIGH: glu 213 Est. kcal needs: 1037-8845 kcal | 15-18 kcal/kg Est. Pro needs: 81-102 g Pro | 0.8-1.0 g Pro/kg PES STATEMENT: Food- and nutrition-related knowledge deficit (NB-1.1) related to lack of prior nutrition-related education as evidenced by conditions associated with diagnosis of DM (blood glucose levels "all over the place") INTERVENTION: Continue with current diet order of CHO 60g/m 1snack diet. Discussed with pt information about CHO counting and its relationship to blood glucose control. Discussed and shown smartphone applications. Discussed role of fiber in DM management, as well as healthy snack options. Pt verbalized understanding of information and appeared confident to use information upon discharge. Will continue to follow and reassess as pt needs, intake, and status change. MONITOR/EVALUATE: PO Intake; Plan of Care; Hydration Status; Weight Status; Lab Values Germán Azar, MS, RD, LD
--- NOTE | 2019-07-24 14:44 | Occupational Therapy Eval ---
OT Evaluation-General/PLF Medical Diagnosis Admission Date Jul 20, 2019 at 17:37 Medical Diagnosis: anemia/cardiomegaly Onset Date: Jul 20, 2019 Therapy Diagnosis Therapy Diagnosis: Weakness Height/Weight Height (Feet): 5 Height (Inches): 4.00 Weight (Pounds): 219 Weight (Ounces): 1.0 Precautions Precautions/Isolations: Fall Prevention Referral Physician: Dr. Lopez Referral Reason: Activity Tolerance, Self Care, Evaluation/Treatment, Strengthening/ROM Medical History Pertinent Medical History: Atrial Fib, CAD, COPD, DM, GERD, HTN Additional Medical History Pt. fell at home. Fx right orbit. Acute renal insufficiency. Reviewed History: Yes Social History Home: Single Level Current Living Status: Spouse Entry Into Home: Stairs Without Railing Steps Into Home: 3 ADL-Prior Level of Function SCALE: Activities may be completed with or without assistive devices. 0-Agldyhqqdw-iwujwpr completes the activity by him/herself with no assistance from a helper. 5-Set-up or Clean-up Assistance-helper sets up or cleans up; patient completes activity. [place] assists only prior to or following the activity. 4-Supervision or Touching Assistance-helper provides verbal cues and/or touching/steadying and/or contact guard assistance as patient completes activity. Assistance may be provided throughout the activity or intermittently. 3-Partial/Moderate Assistance-helper does LESS THAN HALF the effort. [place] lifts, holds or supports trunk or limbs, but provides less than half the effort. 2-Substantial/Maximal Assistance-helper does MORE THAN HALF the effort. [place] lifts or holds trunk or limbs and provides more than half the effort. 3-Ydpekhroi-cyyxyp does ALL the effort. Patient does none of the effort to complete the activity. Or, the assistance of 2 or more helpers is required for the patient to complete the activity. If activity was not attempted, code reason: 7-Patient Refused. 9-Not Applicable-not attempted and the patient did not perform the activity before the current illness, exacerbation or injury. 10-Not Attempted due to Environmental Limitations-(lack of equipment, weather restraints, etc.). 88-Not Attempted due to Medical Conditions or Safety Concerns. ADL PLOF Comments Pt. states that she was independent with daily skills prior to falling at home. Pt. wears oxygen at home. She has a walker but does not use it. Self Care: Independent Functional Cognition: Independent DME/Equipment Comments Pt. has walkers and a sock aide. OT Current Status Subjective No pain reported. Appearance Pt. up walking with PT in hallway. Pt. agrees to work with OT. Mental Status/Objective Patient Orientation: Person, Place, Time, Situation Current Upper Extremity ROM Pt. able to flex shoulder to approximately 90 degrees. This is functional for her. Upper Extremity Coordination intact ADL-Treatment Oral Hygiene (QC): 5 (Set up per pt.) Shower/Bathe Self (QC): 4 (SBA per pt.) On/Off Footwear (QC): 4 (SBA) Toileting Hygiene (QC): 6 (Mod I per pt.) Other Treatments Pt. observed ambulating with PT prior to therapy eval with OT. Pt. ambulating with walker and SBA. Pt. transferred to chair and then OT began evaluation. Pt. verbalizes that she showered this a.m. with nursing present, but was able to do everything on her own. States that she had a BM yesterday, and was able to complete full andreina care. Pt. stands with SBA and transfers to bed. Doffs/dons slipper socks with SBA while seated. Pt. stands and transfers back to chair. Reports that she has a healthy appetite, and no difficulty with eating. Pt. is known to this therapist from previous visits. OT educates pt. that OT goals will be increased overall endurance and safety with functional tasks. Pt. verbalizes understanding. Education OT Patient Education: Correct positioning, Modified ADL techniques, Progress kat vang Goal/Update tx plan, Purpose of tx/functional activities, Reviewed precautions, Rehab process, Transfer techniques Teaching Recipient: Patient Teaching Methods: Demonstration, Discussion Response to Teaching: Verbalize Understanding, Return Demonstration OT Snf Goals Snf Goals Time Frame: July 31, 2019 Eating (QC): 6 Oral Hygiene (QC): 6 Toileting Hygiene (QC): 6 Shower/Bathe Self (QC): 5 Upper Body Dressing (QC): 6 Lower Body Dressing (QC): 6 On/Off Footwear (QC): 6 Additional Goals: 1-Demonstrate ADL Tasks, 2-Verbalize Understanding, 3- ImproveStrength/Diane 1=Demonstrate adherence to instructed precautions during ADL tasks. 2=Patient will verbalize/demonstrate understanding of assistive devices/modifications for ADL. 3=Patient will improve strength/tolerance for activity to enable patient to perform ADL's. OT Education/Plan Problem List/Assessment Assessment: Decreased Activ Tolerance, Decreased UE Strength, Dependent Transfers, Impaired Funct Balance, Impaired I ADL's, Impaired Self-Care Skills Discharge Recommendations Plan/Recommendations: Continue POC Therapy Discharge Recommendati: Home & Family, Post Acute OT Treatment Plan/Plan of Care Treatment,Training & Education: Yes Patient would benefit from OT for education, treatment and training to promote independence in ADL's, mobility, safety and/or upper extremity function for ADL's. Plan of Care: ADL Retraining, Functional Mobility, UE Funct Exercise/Act Treatment Duration: July 31, 2019 Frequency: 5 times per week Estimated Hrs Per Day: .25 hour per day Agreement: Yes Rehab Potential: Good Time/GCodes Start Time: 09:33 Stop Time: 09:45 Total Time Billed (hr/min): 12 Billed Treatment Time 1, DOV DONOVAN OT July 24, 2019 14:44
[2019-07-24 15:57] VITALS: BP 183/78
[2019-07-24] MEDS: IRON SUCROSE 200 MG/10 ML (VENOFER) VIAL IV SCH (16:11)
[2019-07-24] MEDS ORDERED: cloNIDine 0.1 MG (CATAPRES) TAB PO PRN (16:30)
[2019-07-24] MEDS: SENNA W/DOCUSATE (SENOKOT S) TABLET PO SCH (21:23)
[2019-07-24] MEDS: polyethylene glycoL POWDER 17 GM (MIRALAX) PACK PO SCH (21:23)
--- NOTE | 2019-07-24 21:45 | Progress Note - Surgery ---
Subjective Date Seen by a Provider: July 24, 2019 Time Seen by a Provider: 08:41 Subjective/Events-last exam Continues to feel better. Pain in abdomen minimal. Hgb stable. Tolerating diet. Occult + stool. Right face pain improving. Denies n/v fever sweats chills shortness of breath or chest pain. Objective Exam Vital Signs Date Time Temp Pulse Resp B/P (MAP) Pulse Ox O2 Delivery O2 Flow Rate FiO2 07/24/19 18:27 97 Nasal Cannula 2.00 07/24/19 15:57 36.6 100 18 183/78 (113) 98 Nasal Cannula 2.00 07/24/19 09:00 Nasal Cannula 3.00 07/24/19 08:05 36.4 90 18 152/76 (101) 98 Nasal Cannula 2.00 07/24/19 07:10 100 Nasal Cannula 2.00 07/24/19 00:00 36.9 101 18 154/71 (98) 99 Nasal Cannula 3.00 I & O 07/24/19 07:00 Intake Total 2240 ml Balance 2240 ml Capillary Refill : Less Than 3 Seconds General Appearance: No Apparent Distress, WD/WN, Chronically ill HEENT: PERRL/EOMI Neck: Full Range of Motion, Normal Inspection, Supple Respiratory: Chest Non Tender, No Accessory Muscle Use, No Respiratory Distress Cardiovascular: Regular Rate, Rhythm Gastrointestinal: soft, tenderness (minimal luq) Extremity: Pedal Edema Neurologic/Psychiatric: Alert, Oriented x3, No Motor/Sensory Deficits, Normal Mood/Affect Skin: Normal Color, Warm/Dry Lymphatic: No Adenopathy Results Lab Laboratory Tests 07/24/19 04:24: White Blood Count 6.6, Red Blood Count 2.79L, Hemoglobin 7.6L, Hematocrit 25L, Mean Corpuscular Volume 90, Mean Corpuscular Hemoglobin 27, Mean Corpuscular Hemoglobin Concent 30L, Red Cell Distribution Width 18.0H, Platelet Count 161, Mean Platelet Volume 10.6H, Neutrophils (%) (Auto) 74, Lymphocytes (%) (Auto) 17, Monocytes (%) (Auto) 6, Eosinophils (%) (Auto) 3, Basophils (%) (Auto) 0, Neutrophils # (Auto) 4.9, Lymphocytes # (Auto) 1.1, Monocytes # (Auto) 0.4, Eosinophils # (Auto) 0.2, Basophils # (Auto) 0.0, Sodium Level 138, Potassium Level 4.1, Chloride Level 107, Carbon Dioxide Level 21, Anion Gap 10, Blood Urea Nitrogen 17, Creatinine 1.09, Estimat Glomerular Filtration Rate 51, BUN/Creatinine Ratio 16, Glucose Level 213H, Calcium Level 8.3L, Phosphorus Level 2.4, Magnesium Level 2.1, B-Type Natriuretic Peptide 189.0H 07/24/19 11:00: Glucometer 300H 07/24/19 11:10: Lab Scanned Report Transfusion Reaction Form 07/24/19 15:17: Stool Occult Blood Immunoassay POSITIVEH 07/24/19 15:50: Glucometer 286H 07/24/19 21:03: Glucometer 243H Microbiology 07/20/19 MRSA Screen - Final, Complete MRSA not isolated Assessment/Plan Assessment/Plan Assessment/Plan A 63 year old female with severe anemia, right meidal orbital fracture, right paranasal hemo-sinus, fall, luq abdominal pain VSS Hgb stable occult + stool follow hgb and transfuse blood products as needed. ct abd/pelvis with contrast-no acute traumatic injury hold anticoagulation Continue labs wishes to have egd/colonoscopy now she understands risks and benefits prep for colonoscopy npo after midnight consent endoscopy tomorrow Clinical Quality Measures DVT/VTE Risk/Contraindication: Risk Factor Score Per Nursin RFS Level Per Nursing on Admit: 3=High DAMON DONOVAN DO July 24, 2019 21:45
[2019-07-25] VITALS (9 sets, daily range): BP systolic 113–168; BP diastolic 56–76
[2019-07-25 04:57] LABS: BASOPHILS % (AUTO) 0 % (0-10); EOSINOPHILS # (AUTO) 0.2 10^3/uL (0.0-0.3); EOSINOPHILS % (AUTO) 4 % (0-10); HEMATOCRIT 24 % (35-52); HEMOGLOBIN 7.1 G/DL (11.5-16.0); LYMPHOCYTES # (AUTO) 0.9 X 10^3 (1.0-4.0); LYMPHOCYTES % (AUTO) 17 % (12-44); MEAN CORPUSCULAR HEMOGLOBIN 27 PG (25-34); MEAN CORPUSCULAR HGB CONC 30 G/DL (32-36); MEAN CORPUSCULAR VOLUME 90 FL (80-99); MEAN PLATELET VOLUME 10.6 FL (7.4-10.4); MONOCYTES # (AUTO) 0.4 X 10^3 (0.0-1.0); MONOCYTES % (AUTO) 7 % (0-12); NEUTROPHILS # (AUTO) 3.8 X 10^3 (1.8-7.8); NEUTROPHILS % (AUTO) 72 % (42-75); PLATELET COUNT 149 10^3/uL (130-400); RED CELL DISTRIBUTION WIDTH 17.9 % (10.0-14.5); WHITE BLOOD COUNT 5.2 10^3/uL (4.3-11.0)
[2019-07-25 05:08] LABS: CHLORIDE 104 MMOL/L (98-107); POTASSIUM 3.6 MMOL/L (3.6-5.0); SODIUM 140 MMOL/L (135-145)
[2019-07-25 05:10] LABS: GLUCOSE 143 MG/DL (70-105)
[2019-07-25 05:12] LABS: CARBON DIOXIDE 26 MMOL/L (21-32)
[2019-07-25 05:14] LABS: GFR ESTIMATED > 60; PHOSPHORUS 2.7 MG/DL (2.3-4.7)
[2019-07-25 05:15] LABS: BUN/CREATININE RATIO 13
[2019-07-25 05:16] LABS: MAGNESIUM 1.8 MG/DL (1.6-2.4)
[2019-07-25] MEDS: MAGNESIUM 1 GM/100 ML IVPB 100 ML IV SCH (05:18)
[2019-07-25] MEDS: POTASSIUM CL 10MEQ/50ML IVPB 50 ML IV SCH ×3 (05:23→07:49)
[2019-07-25] MEDS: KCL 20 MEQ TAB (K-DUR) PO SCH (05:23)
[2019-07-25] MEDS ORDERED: NS IV 500 ML 500 ML IV ONE (05:30)
[2019-07-25] MEDS: inSUlin ASPART (NovoLOG) 1 UNIT/0.01 ML (CHARGE PER UNIT) SC SCH ×4 (05:33→21:15)
[2019-07-25] MEDS: ADVAIR HFA 115/21 MCG INHALER 8 GM IH SCH ×2 (07:45→18:08)
[2019-07-25] MEDS: LACTULOSE SYRUP 10GM/15ML (ENULOSE) 30ML UDC PO SCH ×2 (07:45→21:15)
[2019-07-25] MEDS: GABAPENTIN 600 MG (NEURONTIN) TAB PO SCH ×2 (07:45→21:15)
[2019-07-25] MEDS: amLODIPine 10 MG (NORVASC) TAB PO SCH (07:46)
[2019-07-25] MEDS ORDERED: LACTATED RINGERS 1,000 ML IV ONE (09:21)
[2019-07-25] MEDS ORDERED: PROPOFOL INJECTION 50 ML IV ONE (09:22)
[2019-07-25] MEDS ORDERED: LACTATED RINGERS 1,000 ML IV STA (09:25)
--- NOTE | 2019-07-25 09:30 | NUR ---
PT GOING DOWN TO SURGERY W/ ROMEO Cleary RN.
--- NOTE | 2019-07-25 09:33 | Progress Note - Surgery ---
Subjective Date Seen by a Provider: July 25, 2019 Time Seen by a Provider: 09:31 Subjective/Events-last exam Patient doing okay. No new complaints. Bowel prep did okay with. Hgb 7.1 Denies n/v fever sweats chills shortness of breath or chest pain. Objective Exam Vital Signs Date Time Temp Pulse Resp B/P (MAP) Pulse Ox O2 Delivery O2 Flow Rate FiO2 07/25/19 08:00 36.9 84 18 166/73 (104) 97 Nasal Cannula 2.00 07/25/19 00:28 36.9 83 19 129/73 (91) 98 Nasal Cannula 2.00 07/24/19 21:00 Nasal Cannula 2.00 07/24/19 18:27 97 Nasal Cannula 2.00 07/24/19 15:57 36.6 100 18 183/78 (113) 98 Nasal Cannula 2.00 I & O 07/25/19 07:00 Intake Total 6270 ml Output Total 250 ml Balance 6020 ml Capillary Refill : Less Than 3 Seconds General Appearance: No Apparent Distress, WD/WN, Chronically ill HEENT: PERRL/EOMI Neck: Full Range of Motion, Normal Inspection, Supple Respiratory: Chest Non Tender, No Accessory Muscle Use, No Respiratory Distress Cardiovascular: Regular Rate, Rhythm Gastrointestinal: soft, tenderness (minimal luq) Extremity: Pedal Edema Neurologic/Psychiatric: Alert, Oriented x3, No Motor/Sensory Deficits, Normal Mood/Affect Skin: Normal Color, Warm/Dry Lymphatic: No Adenopathy Results Lab Laboratory Tests 07/24/19 11:00: Glucometer 300H 07/24/19 11:10: Lab Scanned Report Transfusion Reaction Form 07/24/19 15:17: Stool Occult Blood Immunoassay POSITIVEH 07/24/19 15:50: Glucometer 286H 07/24/19 21:03: Glucometer 243H 07/25/19 04:15: White Blood Count 5.2, Red Blood Count 2.62L, Hemoglobin 7.1L, Hematocrit 24L, Mean Corpuscular Volume 90, Mean Corpuscular Hemoglobin 27, Mean Corpuscular Hemoglobin Concent 30L, Red Cell Distribution Width 17.9H, Platelet Count 149, Mean Platelet Volume 10.6H, Neutrophils (%) (Auto) 72, Lymphocytes (%) (Auto) 17, Monocytes (%) (Auto) 7, Eosinophils (%) (Auto) 4, Basophils (%) (Auto) 0, Neutrophils # (Auto) 3.8, Lymphocytes # (Auto) 0.9L, Monocytes # (Auto) 0.4, Eosinophils # (Auto) 0.2, Basophils # (Auto) 0.0, Sodium Level 140, Potassium Level 3.6, Chloride Level 104, Carbon Dioxide Level 26, Anion Gap 10, Blood Urea Nitrogen 10, Creatinine 0.80, Estimat Glomerular Filtration Rate > 60, BUN/Creatinine Ratio 13, Glucose Level 143H, Calcium Level 8.0L, Phosphorus Level 2.7, Magnesium Level 1.8 07/25/19 05:26: Glucometer 161H Microbiology 07/24/19 MRSA Screen - Final, Complete MRSA not isolated Assessment/Plan Assessment/Plan Assessment/Plan A 63 year old female with severe anemia, right meidal orbital fracture, right paranasal hemo-sinus, fall, luq abdominal pain VSS Hgb stable occult + stool follow hgb and transfuse blood products as needed. ct abd/pelvis with contrast-no acute traumatic injury hold anticoagulation Continue labs egd/colonoscopy today npo Clinical Quality Measures DVT/VTE Risk/Contraindication: Risk Factor Score Per Nursin RFS Level Per Nursing on Admit: 3=High DAMON DONOVAN DO July 25, 2019 09:33
--- NOTE | 2019-07-25 09:39 | Physical Therapy Daily Note ---
PT Daily Note-Current Subjective Patient reports she is feeling better and agrees to PT. Pain Numeric Pain Scale: 0-No Pain Location: No Pain Reported Mental Status Patient Orientation: Normal For Age Attachments: Oxygen, IV Transfers SCALE: Activities may be completed with or without assistive devices. 4-Oudagsmach-apcfhky completes the activity by him/herself with no assistance from a helper. 5-Set-up or Clean-up Assistance-helper sets up or cleans up; patient completes activity. [place] assists only prior to or following the activity. 4-Supervision or Touching Assistance-helper provides verbal cues and/or touching/steadying and/or contact guard assistance as patient completes activit y. Assistance may be provided throughout the activity or intermittently. 3-Partial/Moderate Assistance-helper does LESS THAN HALF the effort. [place] lifts, holds or supports trunk or limbs, but provides less than half the effort. 2-Substantial/Maximal Assistance-helper does MORE THAN HALF the effort. [place] lifts or holds trunk or limbs and provides more than half the effort. 5-Bdyfhtago-dwyqpa does ALL the effort. Patient does none of the effort to complete the activity. Or, the assistance of 2 or more helpers is required for the patient to complete the activity. If activity was not attempted, code reason: 7-Patient Refused. 9-Not Applicable-not attempted and the patient did not perform the activity before the current illness, exacerbation or injury. 10-Not Attempted due to Environmental Limitations-(lack of equipment, weather restraints, etc.). 88-Not Attempted due to Medical Conditions or Safety Concerns. Roll Left & Right (QC): 6 Lying to Sitting/Side of Bed(Q: 6 Sit to Stand (QC): 6 Chair/Wap-cc-Ofins Xfer(QC): 6 Weight Bearing Right Lower Extremity: Right Full Weight Bearing Left Lower Extremity: Left Full Weight Bearing Gait Training Does the Patient Walk?: Yes Distance: 300' Walk 10 feet (QC): 6 Walk 50 ft with 2 Turns(QC): 6 Walk 150 ft (QC): 6 Gait Assistive Device: FWW safe and functional with FWW Exercises Seated Therapy Exercises: Ankle pumps, Long arc quads Seated Reps: 15 Assessment Patient is up in recliner with bilateral LE elevated. PT to increase activity as tolerated by patient. PT Corporate Accountant Goals Prison Goals PT Corporate Accountant Goals Time Frame: July 31, 2019 Roll Left & Right (QC): 6 Sit to Lying (QC): 6 Lying-Sitting on Side/Bed(QC): 6 Sit to Stand (QC): 6 Chair/Flm-xx-Vjmvk Xfer(QC): 6 Does the Patient Walk: Yes Walk 150 ft (QC): 6 PT Plan Treatment/Plan Treatment Plan: Continue Plan of Care Treatment Plan: Bed Mobility, Concurrent Therapy, Education, Functional Activity Diane, Functional Strength, Gait, Safety, Therapeutic Exercise, Transfers Treatment Duration: July 31, 2019 Frequency: 6 times per week Estimated Hrs Per Day: .25 hour per day Patient and/or Family Agrees t: Yes Time/GCodes Time In: 858 Time Out: 910 Total Billed Treatment Time: 12 Total Billed Treatment 1 visit FA 12 min ISABELLE CRAVEN PT July 25, 2019 09:39
--- NOTE | 2019-07-25 09:58 | Occ Therapy Progress Note ---
Therapy Progress Note OT attempted treatment at this time, but pt is currently out of room for a procedure. OT will attempt again later. YOLA MONSALVE OT July 25, 2019 09:58
[2019-07-25] MEDS ORDERED: proPOfol 200 MG/20 ML (DIPRIVAN) VIAL IV ONE (10:08)
--- NOTE | 2019-07-25 10:31 | Progress Note-Post Operative ---
Post-Operative Progess Note Surgeon (s)/Speeder Machine Operator (s) Surgeon DAMON DONOVAN DO Speeder Machine Operator: na Pre-Operative Diagnosis severe anemia, occult + stool Post-Operative Diagnosis antral erosion, small ulcer of cardia of stomach, ascending colon polpy, cecal polyp, transverse colon polyp Procedure & Operative Findings Date of Procedure 07/25/19 Procedure Performed/Findings egd c biopsies, colonoscopy c hot bx polypectomy x 3 Anesthesia Type per inspector process Estimated Blood Loss Estimated blood loss (mL): none Specimens/Packing Specimens Removed antrum, ulcer of cardia, colon polyps DAMON DONOVAN DO July 25, 2019 10:31
--- NOTE | 2019-07-25 10:33 | Anesthesia-General Post-Op ---
MAC Patient Condition Mental Status/LOC: Same as Preop Cardiovascular: Satisfactory Nausea/Vomiting: Absent Respiratory: Satisfactory Pain: Controlled Complications: Absent Post Op Complications Complications None Follow Up Care/Instructions Patient Instructions None needed. Anesthesiology Discharge Order Discharge Order Patient is doing well, no complaints, stable vital signs, no apparent adverse anesthesia problems. No complications reported per nursing. MARIELY KENDALL CRNA July 25, 2019 10:33
[2019-07-25] MEDS: SUCRALFATE 1 GM (CARAFATE) TAB PO SCH ×3 (11:00→21:15)
[2019-07-25] MEDS: PANTOPRAZOLE 40 MG (PROTONIX) TAB PO SCH ×2 (11:00→21:15)
--- NOTE | 2019-07-25 11:00 | NUR ---
PT BACK FROM EGD/COLONSCOPY. DR ESCOBEDO NOTIFIED WELL
--- NOTE | 2019-07-25 13:26 | Occupational Ther Daily Note ---
OT Current Status-Daily Note Subjective Pt laying in bed sleeping, easily awoken. Pt agreeable to OT tx at this time with focus on UE exercises. Pt does not report pain during tx. Mental Status/Objective Attachments: Oxygen ADL-Treatment Therapy Code Descriptions/Definitions Functional Badger Measure: 0=Not Assessed/NA 4=Minimal Assistance 1=Total Assistance 5=Supervision or Setup 2=Maximal Assistance 6=Modified Bad[place] 3=Moderate Assistance 7=Complete IndependenceSCALE: Activities may be completed with or without assistive devices. 0-Jaiagdkvyt-pgdaulc completes the activity by him/herself with no assistance from a helper. 5-Set-up or Clean-up Assistance-helper sets up or cleans up; patient completes activity. [place] assists only prior to or following the activity. 4-Supervision or Touching Assistance-helper provides verbal cues and/or touching/steadying and/or contact guard assistance as patient completes activity. Assistance may be provided throughout the activity or intermittently. 3-Partial/Moderate Assistance-helper does LESS THAN HALF the effort. [place] lifts, holds or supports trunk or limbs, but provides less than half the effort. 2-Substantial/Maximal Assistance-helper does MORE THAN HALF the effort. [place] lifts or holds trunk or limbs and provides more than half the effort. 9-Culsepfat-dxuufs does ALL the effort. Patient does none of the effort to complete the activity. Or, the assistance of 2 or more helpers is required for the patient to complete the activity. If activity was not attempted, code reason: 7-Patient Refused. 9-Not Applicable-not attempted and the patient did not perform the activity before the current illness, exacerbation or injury. 10-Not Attempted due to Environmental Limitations-(lack of equipment, weather restraints, etc.). 88-Not Attempted due to Medical Conditions or Safety Concerns. Other Treatment Pt laying in bed during tx. OT educated pt on BUE yellow theraband exercises, pt completes x10 reps BUE all planes, with rest breaks as needed. OT educated pt on purpose of exercises, instructing pt to complete throughout the day, increasing number of reps to tolerance, she verbalized understanding. Post OT tx, pt laying in bed, call light in reach and all needs met. Education OT Patient Education: Correct positioning, Energy conservation, Exercise program, Progress toward Goal/Update tx plan, Purpose of tx/functional activities Teaching Recipient: Patient Teaching Methods: Demonstration Response to Teaching: Return Demonstration OT Assisted Goals Sheet Metal Lay Out Worker Goals Time Frame: July 31, 2019 Eating (QC): 6 Oral Hygiene (QC): 6 Toileting Hygiene (QC): 6 Shower/Bathe Self (QC): 5 Upper Body Dressing (QC): 6 Lower Body Dressing (QC): 6 On/Off Footwear (QC): 6 Additional Goals: 1-Demonstrate ADL Tasks, 2-Verbalize Understanding, 3- ImproveStrength/Diane 1=Demonstrate adherence to instructed precautions during ADL tasks. 2=Patient will verbalize/demonstrate understanding of assistive devices/modifications for ADL. 3=Patient will improve strength/tolerance for activity to enable patient to perform ADL's. OT Education/Plan Problem List/Assessment Assessment: Decreased Activ Tolerance, Decreased UE Strength, Impaired I ADL's, Impaired Self-Care Skills Discharge Recommendations Plan/Recommendations: Continue POC Treatment Plan/Plan of Care Patient would benefit from OT for education, treatment and training to promote independence in ADL's, mobility, safety and/or upper extremity function for ADL's. Plan of Care: ADL Retraining, Functional Mobility, UE Funct Exercise/Act Treatment Duration: July 31, 2019 Frequency: 5 times per week Estimated Hrs Per Day: .25 hour per day Agreement: Yes Rehab Potential: Good Time/GCodes Start Time: 13:10 Stop Time: 13:18 Total Time Billed (hr/min): 8 Billed Treatment Time 1, EX YOLA MONSALVE OT July 25, 2019 13:26
--- NOTE | 2019-07-25 14:26 | NUR ---
IRF Evaluation Order received to evaluate patient for the ARU. Chart review complete and it appears patient is ambulating (300ft, FWW), transferring and completing bed mobility with independence; therefore, patient does not require intensive therapies. Thank you for this referral.
--- NOTE | 2019-07-25 15:16 | OPERATIVE REPORT ---
DATE OF SERVICE: 07/25/2019 PREOPERATIVE DIAGNOSES: Severe anemia, occult positive stools. POSTOPERATIVE DIAGNOSES: Antral erosions, small ulcer at the cardia of stomach, ascending colon polyp, cecal polyp, and transverse colon polyp. SURGEON: Damon Hussein DO. ANESTHESIA: Per PHYSICIAN ANESTHESIOLOGIST. PROCEDURE: EGD with biopsies, colonoscopy with hot biopsy polypectomy x3. ESTIMATED BLOOD LOSS: None. COMPLICATIONS: None. INDICATIONS: The patient is a 63-year-old female with fall and found to be severely anemic. She has occult positive stool. She understands risks and benefits of procedures and wished to proceed with procedure. Consent was signed in the chart. DESCRIPTION OF PROCEDURE: The patient was taken to the endoscopy suite, placed in left lateral recumbent position. Timeout was performed. Scope was inserted in mouth, down the esophagus, stomach and into the duodenum without difficulty. There were no polyps, masses or ulcerations within the duodenum. Scope was slowly withdrawn back into the stomach, which demonstrated antral erosions, some erythematous changes. Biopsy of the antrum was obtained. Scope was retroflexed, noting small ulcer in the cardia of the stomach. Biopsy of this area was obtained. There were also some small polyps throughout the stomach. No active bleeding present. Scope was then slowly retracted and no hiatal hernia. Scope was returned to its normal position, slowly withdrawn to the distal esophagus, which had normal appearance. Scope was slowly retracted back to completely remove, noting no other pathology. Digital rectal exam was performed. There were no palpable polyps, masses or ulcerations. Scope was inserted in the rectum and advanced all the way to cecum with minimal difficulty. Prep was adequate with irrigation and suction. In the cecum, a small polyp was present, which hot biopsy polypectomy was performed. In the ascending colon, another small polyp was present, which hot biopsy polypectomy was performed. Scope was then continuously retracted back. In transverse colon, another small polyp was present, which hot biopsy polypectomy was performed. Scope was continuously retracted back. No other polyps, masses or ulcerations were visualized within the remainder of the transverse, descending and sigmoid colon. Once in the rectum, scope was inserted and retracted multiple times without any other pathology noted. Scope was then slowly retracted back until completely removed. The patient tolerated procedure well without any complications. RECOMMENDATIONS: The patient was started on Carafate 1 g four times a day and Protonix 40 mg b.i.d. Await biopsy results. We will need repeat colonoscopy in 5 years. If any issues before that, will be re-evaluated at that time. Job ID: [id number] DocumentID: [id number] Dictated Date: 07/25/2019 10:41:33 Drafter Directional Survey Date: 07/25/2019 15:14:22 Dictated By: DAMON HUSSEIN DO
--- NOTE | 2019-07-25 18:28 | Progress Note - Hospitalist ---
Subjective HPI/CC On Admission Date Seen by Provider: July 25, 2019 Time Seen by Provider: 10:00 Subjective/Events-last exam EGD and colonoscopy completed by Dr. Hussein in an uncomplicated manner They found three polyps in the colon and Antral erosion and a small ulcer in the stomach Trying to figure out if she should come to rehab tomorrow or not Overall doing very well per nurse PT evaluated patient to be independent and walking 300 feet Review of Systems General: Fatigue Pulmonary: Dyspnea Cardiovascular: Edema Neurological: Weakness Objective Exam Vital Signs Vital Signs Date Time Temp Pulse Resp B/P (MAP) Pulse Ox O2 Delivery O2 Flow Rate FiO2 07/25/19 18:08 98 Nasal Cannula 2.00 07/25/19 15:32 37.0 88 18 150/65 (93) Capillary Refill : Less Than 3 Seconds General Appearance: No Apparent Distress, WD/WN Results/Procedures Lab Laboratory Tests 07/25/19 04:15 Patient resulted labs reviewed. Assessment/Plan Assessment and Plan Assess & Plan/Chief Complaint (1) Right orbit fracture Status: Acute Assessment & Plan: Trauma Surgery consulted. Extraocular movements intact and p upils responsive, Optometry for limited dilated eye exam. Qualifiers: Qualified Codes: S02.85XA - Fracture of orbit, unspecified, initial encounter for closed fracture (2) Acute renal insufficiency Status: Acute Assessment & Plan: IVF decreased. Will monitor closely and likely be difficult balance between renal function and pulmonary edema. (3) Diabetes mellitus, type 2 Status: Chronic Assessment & Plan: When safe for PO, diabetic diet. Sliding scale insulin. Now on CLD Qualifiers: (4) A-fib Status: Chronic Assessment & Plan: On Xarelto at home, holding due to severe anemia. (5) HTN (hypertension) Status: Chronic Assessment & Plan: Will resume home medications as blood pressure indicates. Qualifiers: Qualified Codes: I10 - Essential (primary) hypertension (6) HLD (hyperlipidemia) Status: Chronic (7) Congestive heart failure (CHF) Status: Chronic Assessment & Plan: BNP elevated on admit, one dose of IV lasix given on admit and creatinine worsened yesterday, will hold for now and monitor respiratory status closely. Qualifiers: Qualified Codes: I50.32 - Chronic diastolic (congestive) heart failure (8) COPD (chronic obstructive pulmonary disease) Status: Chronic Assessment & Plan: No evidence of exacerbation. On baseline oxygen. (9) Multilevel degenerative disc disease Status: Chronic Assessment & Plan: Resumed home hydrocodone. (10) Syncope Status: Acute Assessment & Plan: Note that she had syncope in past and had previously had sinus pauses. Appears this time was related to exertional hypoxia with severe anemia. Monitor with blood transfusion. (11) Severe anemia Status: Acute Assessment & Plan: Has had anemia in past and reportedly had EGD/colonoscopy in 2019 in but results are unknown to me at this time. Started on IV PPI, monitor H&H. Surgery consulted. Hgb 8.0 s/p 4 units. EGD/Colon tomorrow 07/25/19 (12) Carotid stenosis Assessment & Plan: Per Cardiology notes Feb 2019 had severe carotid stenosis and needed follow up with Vascular, unclear if this has been done, repeat carotid US. (13) Coronary artery disease Status: Chronic Qualifiers: Qualified Codes: I25.10 - Atherosclerotic heart disease of burns paiute coronary artery without angina pectoris (14) DVT prophylaxis Status: Acute Assessment & Plan: No pharmacologic due to severe anemia. Plan: Hematology consultation Wraps to legs Monitor hgb Scopes today reviewed results Clinical Quality Measures DVT/VTE Risk/Contraindication: Risk Factor Score Per Nursin RFS Level Per Nursing on Admit: 3=High ZACK ESCOBEDO DO July 25, 2019 18:28
[2019-07-25] MEDS: polyethylene glycoL POWDER 17 GM (MIRALAX) PACK PO SCH (21:15)
[2019-07-25] MEDS: SENNA W/DOCUSATE (SENOKOT S) TABLET PO SCH (21:15)
[2019-07-26 04:57] LABS: BASOPHILS % (AUTO) 0 % (0-10); EOSINOPHILS # (AUTO) 0.2 10^3/uL (0.0-0.3); EOSINOPHILS % (AUTO) 3 % (0-10); HEMATOCRIT 26 % (35-52); HEMOGLOBIN 7.8 G/DL (11.5-16.0); LYMPHOCYTES % (AUTO) 16 % (12-44); MEAN CORPUSCULAR HEMOGLOBIN 27 PG (25-34); MEAN CORPUSCULAR HGB CONC 30 G/DL (32-36); MEAN CORPUSCULAR VOLUME 91 FL (80-99); MEAN PLATELET VOLUME 10.8 FL (7.4-10.4); MONOCYTES # (AUTO) 0.4 X 10^3 (0.0-1.0); MONOCYTES % (AUTO) 6 % (0-12); NEUTROPHILS # (AUTO) 4.6 X 10^3 (1.8-7.8); NEUTROPHILS % (AUTO) 75 % (42-75); PLATELET COUNT 146 10^3/uL (130-400); RED CELL DISTRIBUTION WIDTH 18.2 % (10.0-14.5); WHITE BLOOD COUNT 6.1 10^3/uL (4.3-11.0)
[2019-07-26 05:22] LABS: CALCIUM 8.7 MG/DL (8.5-10.1); CREATININE SERUM 0.96 MG/DL (0.60-1.30); MAGNESIUM 1.9 MG/DL (1.6-2.4); PHOSPHORUS 2.4 MG/DL (2.3-4.7); POTASSIUM 4.1 MMOL/L (3.6-5.0)
[2019-07-26] MEDS: KCL 20 MEQ TAB (K-DUR) PO SCH (05:29)
[2019-07-26] MEDS: MAGNESIUM 1 GM/100 ML IVPB 100 ML IV SCH (05:29)
[2019-07-26] MEDS: POTASSIUM CL 10MEQ/50ML IVPB 50 ML IV SCH (05:29)
[2019-07-26] MEDS: inSUlin ASPART (NovoLOG) 1 UNIT/0.01 ML (CHARGE PER UNIT) SC SCH ×2 (06:22→11:44)
[2019-07-26] MEDS: SUCRALFATE 1 GM (CARAFATE) TAB PO SCH ×2 (06:22→11:44)
[2019-07-26] MEDS: ADVAIR HFA 115/21 MCG INHALER 8 GM IH SCH (07:02)
[2019-07-26 08:00] VITALS: BP 170/75
[2019-07-26] MEDS: PANTOPRAZOLE 40 MG (PROTONIX) TAB PO SCH (09:02)
[2019-07-26] MEDS: LACTULOSE SYRUP 10GM/15ML (ENULOSE) 30ML UDC PO SCH (09:02)
[2019-07-26] MEDS: GABAPENTIN 600 MG (NEURONTIN) TAB PO SCH (09:02)
[2019-07-26] MEDS: amLODIPine 10 MG (NORVASC) TAB PO SCH (09:02)
--- NOTE | 2019-07-26 09:08 | Physical Therapy Daily Note ---
PT Daily Note-Current Subjective Patient in bed pre tx, agrees to PT, has unrated pain in right eye and hip. Patient wont rate, just states its a little pain. Appearance Patient in recliner post tx with nurse call, phone, tray, all needs met. Mental Status Patient Orientation: Person, Place, Situation Attachments: Oxygen 2L of O2 nasal canula Transfers SCALE: Activities may be completed with or without assistive devices. 8-Iofqoxtpgb-bxfvqtq completes the activity by him/herself with no assistance from a helper. 5-Set-up or Clean-up Assistance-helper sets up or cleans up; patient completes activity. [place] assists only prior to or following the activity. 4-Supervision or Touching Assistance-helper provides verbal cues and/or touching/steadying and/or contact guard assistance as patient completes activity. Assistance may be provided throughout the activity or intermittently. 3-Partial/Moderate Assistance-helper does LESS THAN HALF the effort. [place] lifts, holds or supports trunk or limbs, but provides less than half the effort. 2-Substantial/Maximal Assistance-helper does MORE THAN HALF the effort. [place] lifts or holds trunk or limbs and provides more than half the effort. 1-Ofgaumczk-rxbhub does ALL the effort. Patient does none of the effort to complete the activity. Or, the assistance of 2 or more helpers is required for the patient to complete the activity. If activity was not attempted, code reason: 7-Patient Refused. 9-Not Applicable-not attempted and the patient did not perform the activity before the current illness, exacerbation or injury. 10-Not Attempted due to Environmental Limitations-(lack of equipment, weather restraints, etc.). 88-Not Attempted due to Medical Conditions or Safety Concerns. Roll Left & Right (QC): 6 Lying to Sitting/Side of Bed(Q: 6 Sit to Stand (QC): 6 Chair/Xys-vm-Ujqyn Xfer(QC): 6 Toilet Transfer (QC): 6 Patient uses the restroom before ambulation, does so independently. Weight Bearing Right Lower Extremity: Right Full Weight Bearing Left Lower Extremity: Left Full Weight Bearing Gait Training Distance: 400' Walk 10 feet (QC): 6 Walk 50 ft with 2 Turns(QC): 6 Walk 150 ft (QC): 6 Gait Persons Needed: 1 Gait Assistive Device: FWW Patient ambulates 400' with a rolling walker with independence, patient ambulates slowly but steady, occasional short standing rest break. Exercises Seated Therapy Exercises: Ankle pumps, Long arc quads Seated Reps: 20 Treatments toileting, ambulation, LE strengthening Assessment Current Status: Fair Progress improving endurance PT Fdc Goals Mounted Police Officer Goals PT Mounted Police Officer Goals Time Frame: July 31, 2019 Roll Left & Right (QC): 6 Sit to Lying (QC): 6 Lying-Sitting on Side/Bed(QC): 6 Sit to Stand (QC): 6 Chair/Rah-on-Gvmfw Xfer(QC): 6 Does the Patient Walk: Yes Walk 150 ft (QC): 6 PT Plan Problem List Problem List: Activity Tolerance, Functional Strength, Safety, Balance, Gait, Transfer Treatment/Plan Treatment Plan: Continue Plan of Care Treatment Plan: Bed Mobility, Concurrent Therapy, Education, Functional Activity Diane, Functional Strength, Gait, Safety, Therapeutic Exercise, Transfers Treatment Duration: July 31, 2019 Frequency: 6 times per week Estimated Hrs Per Day: .25 hour per day Patient and/or Family Agrees t: Yes Safety Risks/Education Patient Education: Gait Training, Transfer Techniques, Correct Positioning, Safety Issues Teaching Recipient: Patient Teaching Methods: Demonstration, Discussion Response to Teaching: Reinforcement Needed Time/GCodes Time In: 45 Time Out: 900 Total Billed Treatment Time: 16 Total Billed Treatment 1 visit FA 16' FLORINDA SMART PT July 26, 2019 09:08
--- NOTE | 2019-07-26 09:20 | NUR ---
Pt feeling weak and doesn't feel she could function at home. Her is there but unsure of how much assistance he could offer.Discussed options such as Skilled care in a local assisted vs. Home health care. Pt unsure and plans to discuss with physician. Pt lives in [place] and has home oxygen and a front wheel walker at home. Will follow and assist.
--- NOTE | 2019-07-26 09:27 | Physician Query Clarification ---
"Physician Query-General Query to Physician: The medical record reflects the following clinical scenario: History/Risk factors: left upper quadrant pain, On Xaralto Clinical Findings: EGD positive for ulcer in the Cardia of stomach Treatment: Recieved blood transfusion, Performed EGD/Coloscopy Question: What condition best reflects the above clinical scenario? Please document response in the Progress notes or Discharge Summary. 1. GI Bleed Due to ulcer 2. Anemia (As currently documented) 3. Other , with explanation of the clinical findings 4. Clinically undetermined, no explanation for the clinical findings Please remember a lack of response to the above will prompt a phone page by CDI/coding staff In responding to this query, please exercise your independent professional judgment. The purpose of this communication is to more accurately reflect the complexity of your patients condition. The fact that a question is asked does not imply that any particular answer is desired or expected. Thank you for timely response to this clarification. Syeda Gore, MSN, RN RN Specialist-Clinical Doc Improvement CD -Health Info [facility] Operations [address] [facility] t: [phone] | f: [phone] If you are unable to reach me at my extension, I may be working from home. Please contact me at [phone] PHYSICIAN RESPONSE: Based on the clinical findings in the record, please respond to the query above on this document as an addendum. Physician Response: Physician Response Anemia of chronic disease superimposed on acute blood loos from GI bleed stomach ulcer If you have questions please contact: Smoking Pipe Liner: Ext: Thank you for your time and cooperation. Clinical Computational Theory Scientist/Smoking Pipe Liner This is a permanent part of the medical record SYEDA GORE July 26, 2019 09:27 ZACK ESCOBEDO DO July 26, 2019 10:31"
--- NOTE | 2019-07-26 09:33 | Physician Query Clarification ---
"Physician Query-General Query to Physician: The medical record reflects the following clinical scenario: History/Risk factors: On Xaralto, Clinical Findings: Hbg 3.5, Treatment: Multiple Transfusions, Hgb monitoring Question: What condition best reflects the above clinical scenario? Please document response in the Progress notes or Discharge Summary. 1. Acute blood loss anemia 2. Anemia (As currently documented) 3. Other , with explanation of the clinical findings 4. Clinically undetermined, no explanation for the clinical findings Please remember a lack of response to the above will prompt a phone page by CDI/coding staff In responding to this query, please exercise your independent professional judgment. The purpose of this communication is to more accurately reflect the complexity of your patients condition. The fact that a question is asked does not imply that any particular answer is desired or expected. Thank you for timely response to this clarification. Syeda Gore, MSN, RN RN Specialist-Clinical Doc Improvement CD -Health Info Mgmt Operations [address] [facility] t: [phone] | f: [phone] If you are unable to reach me at my extension, I may be working from home. Please contact me at [phone] PHYSICIAN RESPONSE: Based on the clinical findings in the record, please respond to the query above on this document as an addendum. Physician Response: Physician Response See previous query explanation same question If you have questions please contact: Bi Report Developer: Ext: Thank you for your time and cooperation. Clinical Banking Management Consulting Manager/Bi Report Developer This is a permanent part of the medical record SYEDA GORE July 26, 2019 09:33 ZACK ESCOBEDO DO July 26, 2019 10:31"
[2019-07-26] MEDS ORDERED: PANT40TA3 PO (09:45)
[2019-07-26] MEDS ORDERED: INSU100V5 SQ (09:45)
[2019-07-26] MEDS ORDERED: SUCR1TAB36 PO (09:45)
--- NOTE | 2019-07-26 09:46 | Discharge Summary ---
Discharge Summary Hospital Course Was the Problem List Reviewed?: Yes Hospital Course Date of Admission: Jul 20, 2019 at 17:37 Admission Diagnosis : Family Physician/Provider: Obdulio Cabral MD Date of Discharge: 07/26/19 Discharge Diagnosis: Severe anemia, multiple blood transfusions, GIB from stomach ulcer, colon polyps, anemia of chronic disease, hypoxia O2 dependent, edema, CHF Hospital Course: Hospital Course: Pt had a lengthy hospital course for 6 days due to severe anemia with Hgb of 3.3 on admission requiring multiple transfusions. General surgery consulted, hemoccult positive stools x3 prompted EGD and colonoscopy that showed a stomach ulcer, hiatal hernia, and colon polyps. Pt was given IV iron supplementation and hgb did gradually keep increasing to 8.0 then declining to 7.2 at DC so it was found to pt having a need to have a few days to monitor hgb transfuse as necessary to have a few days to monitor hgb and transfuse as necessary and manage the lower extremity edema and hypoxia and overall weakness and fall risk so she was accepted to [facility] swing bed status for a short course DC plan on Wednesday with PT and OT to gain confidence for DC on Wednesday. Labs and Pending Lab Test: Laboratory Tests 07/25/19 10:58: Glucometer 181H 07/25/19 15:31: Glucometer 208H 07/25/19 20:40: Glucometer 299H 07/26/19 04:06: White Blood Count 6.1, Red Blood Count 2.86L, Hemoglobin 7.8L, Hematocrit 26L, Mean Corpuscular Volume 91, Mean Corpuscular Hemoglobin 27, Mean Corpuscular Hemoglobin Concent 30L, Red Cell Distribution Width 18.2H, Platelet Count 146, Mean Platelet Volume 10.8H, Neutrophils (%) (Auto) 75, Lymphocytes (%) (Auto) 16, Monocytes (%) (Auto) 6, Eosinophils (%) (Auto) 3, Basophils (%) (Auto) 0, Neutrophils # (Auto) 4.6, Lymphocytes # (Auto) 1.0, Monocytes # (Auto) 0.4, Eosinophils # (Auto) 0.2, Basophils # (Auto) 0.0, Sodium Level 141, Potassium Level 4.1, Chloride Level 106, Carbon Dioxide Level 23, Anion Gap 12, Blood Urea Nitrogen 9, Creatinine 0.96, Estimat Glomerular Filtration Rate 59, BUN/Creatinine Ratio 9, Glucose Level 229H, Calcium Level 8.7, Phosphorus Level 2.4, Magnesium Level 1.9 Microbiology 07/24/19 MRSA Screen - Final, Complete MRSA not isolated Home Meds Active Carafate (Sucralfate) 1 Gm Tablet 1 Gm PO ACHS Levemir (Insulin Determir) 1,000 Units/10 Ml Soln 10 Unit SQ HS 7 Days Pantoprazole Sodium 40 Mg Tablet.dr 40 Mg PO BID Advair Hfa 115-21 Mcg Inhaler (Fluticasone/Salmeterol) 12 Gm Hfa.aer.ad 2 Puff IH BID@,20 Reported Ventolin Hfa (Albuterol Sulfate) 18 Gm Hfa.aer.ad 2 Puff PO Q6H PRN Turmeric 500 mg Capsule (Turmeric/Turmeric Root Extract) 1 Each Capsule 2 Each PO HS Calcium with Vit D Tablet (Calcium Citrate/Vitamin D2) 1 Each Tablet 1 Each PO DAILY Potassium Gluconate 90 Mg Tablet 90 Mg PO DAILY Doxycycline Hyclate 100 Mg Capsule 100 Mg PO BID 7 Days FILLED 07-16-2019 #14/7 DAY SUPLY Prednisone 20 Mg Tab 20 Mg PO BID 5 Days FILLED 07-19-2019 #10/5 DAY SUPPLY Aldactone (Spironolactone) 25 Mg Tablet 25 Mg PO DAILY Metoprolol Succinate 25 Mg Tab.er.24h 25 Mg PO DAILY Torsemide 10 Mg Tablet 10 Mg PO DAILY Doxazosin Mesylate 1 Mg Tablet 1 Mg PO HS Metformin HCl ER (Metformin HCl) 500 Mg Tab.er.24h 500 Mg PO BID WITH MEALS HYDROcodone/APAP 10/325 TABLET (Acetaminophen/Hydrocodone Bitart) 1 Each Tablet 1 Ea PO TID PRN Xarelto (Rivaroxaban) 20 Mg Tablet 20 Mg PO HS Iprat-Albut 0.5-3(2.5) mg/3 ml (Ipratropium/Albuterol Sulfate) 3 Ml Ampul.neb 3 Ml IH BID PRN Levemir (Insulin Determir) 1,000 Units/10 Ml Soln 80 Units SQ HS Novolog (Insulin Aspart) 100 Unit/1 Ml Susp Unit SQ TIDAC USES PER SLIDING SCALE Amlodipine Besylate 10 Mg Tablet 10 Mg PO DAILY Trulicity (Dulaglutide) 0.75 Mg/0.5 Ml Pen.injctr 0.75 Mg SC BOWIE Mysoline (Primidone) 50 Mg Tablet 50 Mg PO HS Stool Softener-Stimulant Lax (Sennosides/Docusate Sodium) 1 Each Tablet 2 Tab PO HS Fish Oil 1,000 mg Softgel ([place]-3/Dha/Epa/Fish Oil) 1 Each Capsule 1,000 Mg PO DAILY Multi-Day Plus Minerals Tablet (Multivitamin-Min/Iron/FA/Vit K) 1 Each Tablet 1 Tab PO DAILY Cyclobenzaprine HCl 10 Mg Tablet 20 Mg PO BID PRN Atorvastatin Calcium 40 Mg Tablet 40 Mg PO HS Magnesium (Magnesium Oxide) 400 Mg Tablet 400 Mg PO HS Aspirin EC (Aspirin) 81 Mg Tablet.dr 81 Mg PO DAILY Gabapentin 600 Mg Tablet 600 Mg PO BID Pantoprazole Sodium 40 Mg Tablet.dr 40 Mg PO DAILY Isosorbide Mononitrate ER (Isosorbide Mononitrate) 60 Mg Tab 60 Mg PO DAILY Fenofibrate (Fenofibrate,Micronized) 134 Mg Capsule 134 Mg PO HS Cinnamon (Cinnamon Bark) 500 Mg Capsule 500 Mg PO BID Assessment/Pt Instructions [facility] 1 week Discharge Planning: <30 minutes discharge planning Discharge Instructions Discharge Diet: ADA Diet Activity as Tolerated: Yes Discharge Physical Examination Vital Signs Vital Signs Date Time Temp Pulse Resp B/P (MAP) Pulse Ox O2 Delivery O2 Flow Rate FiO2 07/26/19 08:00 37.1 93 18 170/75 (106) 96 Nasal Cannula 2.00 General Appearance: No Apparent Distress, WD/WN, Chronically ill Respiratory: Chest Non Tender, Lungs Clear, Normal Breath Sounds, No Accessory Muscle Use, No Respiratory Distress Cardiovascular: Regular Rate, Rhythm, No Gallop, No JVD, No Murmur, Normal Peripheral Pulses Extremity: Pedal Edema Neurologic/Psychiatric: Alert, Oriented x3, No Motor/Sensory Deficits, Normal Mood/Affect Allergies: Coded Allergies: morphine (Verified Adverse Reaction, Severe, hallucination, 07/12/18) Discharge Summary Date of Admission Jul 20, 2019 at 17:37 Date of Discharge Discharge Date: July 26, 2019 Discharge Diagnosis (1) Right orbit fracture Status: Acute Assessment & Plan: Trauma Surgery consulted. Extraocular movements intact and pupils responsive, Optometry for limited dilated eye exam. Qualifiers: Qualified Codes: S02.85XA - Fracture of orbit, unspecified, initial encounter for closed fracture (2) Acute renal insufficiency Status: Acute Assessment & Plan: IVF decreased. Will monitor closely and likely be difficult balance between renal function and pulmonary edema. (3) Diabetes mellitus, type 2 Status: Chronic Assessment & Plan: When safe for PO, diabetic diet. Sliding scale insulin. Now on CLD Qualifiers: (4) A-fib Status: Chronic Assessment & Plan: On Xarelto at home, holding due to severe anemia. (5) HTN (hypertension) Status: Chronic Assessment & Plan: Will resume home medications as blood pressure indicates. Qualifiers: Qualified Codes: I10 - Essential (primary) hypertension (6) HLD (hyperlipidemia) Status: Chronic (7) Congestive heart failure (CHF) Status: Chronic Assessment & Plan: BNP elevated on admit, one dose of IV lasix given on admit and creatinine worsened yesterday, will hold for now and monitor respiratory status closely. Qualifiers: Qualified Codes: I50.32 - Chronic diastolic (congestive) heart failure (8) COPD (chronic obstructive pulmonary disease) Status: Chronic Assessment & Plan: No evidence of exacerbation. On baseline oxygen. (9) Multilevel degenerative disc disease Status: Chronic Assessment & Plan: Resumed home hydrocodone. (10) Syncope Status: Acute Assessment & Plan: Note that she had syncope in past and had previously had sinus pauses. Appears this time was related to exertional hypoxia with severe anemia. Monitor with blood transfusion. (11) Severe anemia Status: Acute Assessment & Plan: Has had anemia in past and reportedly had EGD/colonoscopy in 2019 in but results are unknown to me at this time. Started on IV PPI, monitor H&H. Surgery consulted. Hgb 8.0 s/p 4 units. EGD/Colon tomorrow 07/25/19 (12) Carotid stenosis Assessment & Plan: Per Cardiology notes Feb 2019 had severe carotid stenosis and needed follow up with Vascular, unclear if this has been done, repeat carotid US. (13) Coronary artery disease Status: Chronic Qualifiers: Qualified Codes: I25.10 - Atherosclerotic heart disease of [place] coronary artery without angina pectoris (14) DVT prophylaxis Status: Acute Assessment & Plan: No pharmacologic due to severe anemia. Plan: Hematology consultation Wraps to legs Monitor hgb Scopes today reviewed results Clinical Quality Measures DVT/VTE Risk/Contraindication: Risk Factor Score Per Nursin RFS Level Per Nursing on Admit: 3=High ZACK ESCOBEDO DO July 26, 2019 09:46
--- NOTE | 2019-07-26 10:44 | Occ Therapy Progress Note ---
Therapy Progress Note Pt pleasantly declined OT services for today, stating she has already showered this morning without difficulty and she is planning on discharging today. OT will attempt again tomorrow if pt is still admitted to hospital. 1, visit [id number] YOLA MONSALVE OT July 26, 2019 10:44
--- NOTE | 2019-07-26 11:14 | NUR ---
Swing Bed Note: Referral for swing bed received. Patient does not appear to meet criteria at this time. According to therapy documentation the patient is independent with transfers et ambulation of 400ft, using a FWW. Nursing et therapy reported that she showered herself et has been toileting herself as well. She is receiving IV Venofer 200mg Q48hrs with 3 more doses needed for her anemia et will also be needing her H&H(laboratory) monitored. F/U with the patient et she reports that she has fallen x3 at home et feels like she is still unsafe to return there at this time. She reports that she would like to receive more therapy to ensure that she is stronger et safe to return home. We visited about nursing homes et she is willing to go a SNF if they are able to accept her. She would like a referral sent to [facility]. F/U with [facility] et has requested that she send a referral to [facility] et so Diane has sent that to them.
--- NOTE | 2019-07-26 13:39 | Discharge Inst-Skilled Nursing ---
Discharge [facility]-Skilled NF Reconcile Patient Problems Problems Reviewed?: Yes Patient Instructions Patient Problems: Severe anemia GIB Goal: Independent ADLs Stable hgb Consult/Follow Up/Orders Follow Up Appt.: Dr Lopez [facility] Skilled NF Admit to: [facility] Certification (SNF) I certify that SNF services are required to be given on an inpatient basis because of the above named patient's need for long term care on a continuing basis for the conditions(s) for which he/she was receiving inpatient hospital services prior to his/her transfer to the SNF. Longterm Facility Order: Nursing Services, Store Operations Specialist-Evaluate & Treat, Physical Therapy-Evaluate & Treat Oxygen Delivery Method: Nasal Cannula Discharge Diet: ADA Diet Resuscitation Status: Full Code New & Resume Previous Orders New Medications: Sucralfate (Carafate) 1 Gm Tablet 1 GM PO ACHS, #120 TAB Insulin Determir (Levemir) 1,000 Units/10 Ml Soln 10 UNIT SQ HS for 7 Days, EA Pantoprazole Sodium (Pantoprazole Sodium) 40 Mg Tablet.dr 40 MG PO BID, #60 TAB Continued Medications: Albuterol Sulfate (Ventolin Hfa) 18 Gm Hfa.aer.ad 2 PUFF PO Q6H PRN for SHORTNESS OF BREATH, EA Amlodipine Besylate (Amlodipine Besylate) 10 Mg Tablet 10 MG PO DAILY, TAB Aspirin (Aspirin EC) 81 Mg Tablet.dr 81 MG PO DAILY, TAB Atorvastatin Calcium (Atorvastatin Calcium) 40 Mg Tablet 40 MG PO HS, TAB Calcium Citrate/Vitamin D2 (Calcium with Vit D Tablet) 1 Each Tablet 1 EACH PO DAILY, TAB Cinnamon Bark (Cinnamon) 500 Mg Capsule 500 MG PO BID, CAP Cyclobenzaprine HCl (Cyclobenzaprine HCl) 10 Mg Tablet 20 MG PO BID PRN for MUSCLE SPASMS, TAB Doxazosin Mesylate (Doxazosin Mesylate) 1 Mg Tablet 1 MG PO HS, TAB Dulaglutide (Trulicity) 0.75 Mg/0.5 Ml Pen.injctr 0.75 MG SC [place], EA Fenofibrate,Micronized (Fenofibrate) 134 Mg Capsule 134 MG PO HS, CAP Fluticasone/Salmeterol (Advair Hfa 115-21 Mcg Inhaler) 12 Gm Hfa.aer.ad 2 PUFF IH BID@, #1 GM Gabapentin (Gabapentin) 600 Mg Tablet 600 MG PO BID, TAB Hydrocodone Bit/Acetaminophen (HYDROcodone/APAP 10/325 TABLET) 1 Each Tablet 1 EA PO TID PRN for PAIN-MODERATE (5-7) Insulin Aspart (Novolog) 100 Unit/1 Ml Susp UNIT SQ TIDAC, EACH USES PER SLIDING SCALE Ipratropium/Albuterol Sulfate (Iprat-Albut 0.5-3(2.5) mg/3 ml) 3 Ml Ampul.neb 3 ML IH BID PRN for SHORTNESS OF BREATH, EACH Isosorbide Mononitrate (Isosorbide Mononitrate ER) 60 Mg Tab 60 MG PO DAILY, TAB Magnesium Oxide (Magnesium) 400 Mg Tablet 400 MG PO HS, TAB Metformin HCl (Metformin HCl ER) 500 Mg Tab.er.24h 500 MG PO BID WITH MEALS, TAB Metoprolol Succinate (Metoprolol Succinate) 25 Mg Tab.er.24h 25 MG PO DAILY, TAB Multivitamin-Min/Iron/FA/Vit K (Multi-Day Plus Minerals Tablet) 1 Each Tablet 1 TAB PO DAILY, TAB [place]-3/Dha/Epa/Fish Oil (Fish Oil 1,000 mg Softgel) 1 Each Capsule 1000 MG PO DAILY, CAP Potassium Gluconate (Potassium Gluconate) 90 Mg Tablet 90 MG PO DAILY, TAB Primidone (Mysoline) 50 Mg Tablet 50 MG PO HS, TAB Sennosides/Docusate Sodium (Stool Softener-Stimulant Lax) 1 Each Tablet 2 TAB PO HS, TAB Spironolactone (Aldactone) 25 Mg Tablet 25 MG PO DAILY, TAB Torsemide (Torsemide) 10 Mg Tablet 10 MG PO DAILY, TAB Turmeric/Turmeric Root Extract (Turmeric 500 mg Capsule) 1 Each Capsule 2 EACH PO HS, CAP Discontinued Medications: Doxycycline Hyclate (Doxycycline Hyclate) 100 Mg Capsule 100 MG PO BID for 7 Days, CAP FILLED 07-16-2019 #14/7 DAY SUPLY Insulin Determir (Levemir) 1,000 Units/10 Ml Soln 80 UNITS SQ HS, EA Pantoprazole Sodium (Pantoprazole Sodium) 40 Mg Tablet.dr 40 MG PO DAILY, TAB Prednisone (Prednisone) 20 Mg Tab 20 MG PO BID for 5 Days, TAB FILLED 07-19-2019 #10/5 DAY SUPPLY Rivaroxaban (Xarelto) 20 Mg Tablet 20 MG PO HS, TAB Shanae S Lopez July 26, 2019 13:37 SHANAE LOPEZ DO July 26, 2019 13:39
--- NOTE | 2019-07-26 13:40 | NUR ---
Spoke with RN at [facility] who will be taking care of patient. report given. no other questions at this time
--- NOTE | 2019-07-26 13:41 | NUR ---
Pt has been accepted t Swing Bed program at [facility]. Pt reports her is a "hoarder" which has contributed to her unsteadiness at home. Therapy program at [facility] plans to work with her on safely ambulating in the narrow pathways that exist in her home. She understands that she will be receiving short-term therapies as well as the Venifer infusion. Anticipated discharge is in 4- 5 days. Pt's plans to transport pt to the [facility] She will followed by Dr. Lopez and has appt with Dr. [place] [facility] on August 06 at 10:00 AM. Will fax discharge instructions and discharge summary.
--- NOTE | 2019-07-26 14:10 | NUR ---
IV taken out so patient could discharge. this RN did not give IV iron today. called [facility] to let them know. stated not a problem they would give her dose there for the day
--- NOTE | 2019-07-26 14:23 | NUR ---
Arrangements completed for pt's discharge to [facility].Pt's will transport her to [place]. He will brass pickler her home oxygen and home meds.
[2019-07-26] MEDS: IRON SUCROSE 200 MG/10 ML (VENOFER) VIAL IV SCH (15:09)
[2019-07-26 16:00] VITALS: BP 177/75
[2019-07-26 17:00] VITALS: BP 170/75
--- NOTE | 2019-07-26 20:37 | Progress Note - Surgery ---
Subjective Date Seen by a Provider: July 26, 2019 Time Seen by a Provider: 09:31 Subjective/Events-last exam Feeling better. No new complaints. No abdominal pain. Only pain at right eye. Tolerating diet. Hgb stable. Denies n/v fever sweats chills shortness of breath or chest pain. Objective Exam Vital Signs Date Time Temp Pulse Resp B/P (MAP) Pulse Ox O2 Delivery O2 Flow Rate FiO2 07/26/19 17:00 37.1 93 18 170/75 96 Nasal Cannula 2.00 07/26/19 16:00 37.2 95 20 177/75 (109) 97 Nasal Cannula 2.00 07/26/19 09:00 Nasal Cannula 2.00 07/26/19 08:00 37.1 93 18 170/75 (106) 96 Nasal Cannula 2.00 07/26/19 07:03 97 Nasal Cannula 2.00 07/25/19 23:56 37.4 99 18 155/76 (102) 95 Nasal Cannula 2.00 I & O 07/26/19 07:00 Intake Total 1990 ml Balance 1990 ml Capillary Refill : Less Than 3 Seconds General Appearance: No Apparent Distress, Chronically ill, Other (pale) HEENT: PERRL/EOMI, Other (right periorbital bruising/swelling) Neck: Full Range of Motion, Normal Inspection, Supple Respiratory: Chest Non Tender, No Accessory Muscle Use, No Respiratory Distress Cardiovascular: Regular Rate, Rhythm Gastrointestinal: soft, no organomegaly; No tenderness Extremity: Normal Inspection, No Pedal Edema Neurologic/Psychiatric: Alert, Oriented x3 Skin: Normal Color, Warm/Dry Lymphatic: No Adenopathy Results Lab Laboratory Tests 07/25/19 20:40: Glucometer 299H 07/26/19 04:06: White Blood Count 6.1, Red Blood Count 2.86L, Hemoglobin 7.8L, Hematocrit 26L, Mean Corpuscular Volume 91, Mean Corpuscular Hemoglobin 27, Mean Corpuscular Hemoglobin Concent 30L, Red Cell Distribution Width 18.2H, Platelet Count 146, Mean Platelet Volume 10.8H, Neutrophils (%) (Auto) 75, Lymphocytes (%) (Auto) 16, Monocytes (%) (Auto) 6, Eosinophils (%) (Auto) 3, Basophils (%) (Auto) 0, Neutrophils # (Auto) 4.6, Lymphocytes # (Auto) 1.0, Monocytes # (Auto) 0.4, Eosinophils # (Auto) 0.2, Basophils # (Auto) 0.0, Sodium Level 141, Potassium Level 4.1, Chloride Level 106, Carbon Dioxide Level 23, Anion Gap 12, Blood Urea Nitrogen 9, Creatinine 0.96, Estimat Glomerular Filtration Rate 59, BUN/Creatinine Ratio 9, Glucose Level 229H, Calcium Level 8.7, Phosphorus Level 2.4, Magnesium Level 1.9 07/26/19 11:22: Glucometer 278H 07/26/19 15:58: Glucometer 297H Microbiology 07/24/19 MRSA Screen - Final, Complete MRSA not isolated Assessment/Plan Assessment/Plan Assessment/Plan A 63 year old female with severe anemia, right meidal orbital fracture, right paranasal hemo-sinus, fall, luq abdominal pain, gastric ulcer/erosion no active bleeding, colon polyps VSS Hgb stable occult + stool stable hgb ct abd/pelvis with contrast-no acute traumatic injury hold anticoagulation continue protonix/carafate okay to wv home from surgical standpoint and outpatient follow up Clinical Quality Measures DVT/VTE Risk/Contraindication: Risk Factor Score Per Nursin RFS Level Per Nursing on Admit: 3=High DAMON DONOVAN DO July 26, 2019 20:37
--- NOTE | 2019-07-27 07:57 | Physician Query Clarification ---
PQ-CHF Specificity Admission Date: Jul 20, 2019 at 17:37 Discharge Date: July 26, 2019 at 17:00 The medical record reflects the following clinical scenario: History/Risk Factors: GI bleed, anemia, fx orbit, OHS, chronic atrial fibrillation, HTN w/CHF Clinical Findings: ProBNP 2111.0, BNP 189.0 Treatment: 20 mg Lasix IVP Question: Can you further specify the acuity &/or type of CHF per the clinical indicators above? Please document a response in the Progress Notes or Discharge Summary. 1. Acuity: Acute, Chronic or Acute on Chronic 2. Type: Systolic, Diastolic or Systolic & Diastolic 3. Unspecified: CHF cannot be further specified regarding type or acuity 4. Other, with explanation of clinical findings 5. Clinically undetermined, no explanation for clinical findings PHYSICIAN RESPONSE Acuity: Clinically undetermined Type: Clinically undetermined Please remember a lack of response to the above will prompt a phone page by [facility] staff. In responding to this query, please exercise your independent professional judgment. The purpose of this communication is to more accurately reflect the complexity of your patients condition. The fact that a question is asked does not imply that any particular answer is desired or expected. Thank you for your timely response to this clarification. Requestors name: Denise THIS PHYSICIAN QUERY FORM IS A PERMANENT PART OF THE MEDICAL RECORD DENISE PETERS July 27, 2019 07:57 DAMON DONOVAN DO August 16, 2019 17:06
== END 2019-07-26 17:00 | disposition swing bed (61) | DRG 378 ==
LOC: EDUNIT# 16:11 → ER FS 16:16 → ICU 17:37 → 4TH 07-21 21:30
PROVIDERS: ADMIT Family Medicine; ATTEND Family Medicine
PROC: 0DBH8ZX Excision of Cecum, Via Natural or Artificial Opening Endoscopic, Diagnostic (ICD-10-PCS; 2019-07-25)
PROC: 0DBL8ZX Excision of Transverse Colon, Via Natural or Artificial Opening Endoscopic, Diagnostic (ICD-10-PCS; 2019-07-25)
PROC: 0DB78ZX Excision of Stomach, Pylorus, Via Natural or Artificial Opening Endoscopic, Diagnostic (ICD-10-PCS; principal; 2019-07-25 10:00)
PROC: 0DBK8ZX Excision of Ascending Colon, Via Natural or Artificial Opening Endoscopic, Diagnostic (ICD-10-PCS; 2019-07-25 10:00)
DX: K25.4 Chronic or unspecified gastric ulcer with hemorrhage (principal); D62 Acute posthemorrhagic anemia; D63.8 Anemia in other chronic diseases classified elsewhere; S02.85XA Fracture of orbit, unspecified, initial encounter for closed fracture; E66.2 Morbid (severe) obesity with alveolar hypoventilation; K63.5 Polyp of colon; I48.20 Chronic atrial fibrillation, unspecified; R04.0 Epistaxis; R10.12 Left upper quadrant pain; R55 Syncope and collapse; J44.9 Chronic obstructive pulmonary disease, unspecified; E11.9 Type 2 diabetes mellitus without complications; I11.0 Hypertensive heart disease with heart failure; I50.9 Heart failure, unspecified; I25.10 Atherosclerotic heart disease of native coronary artery without angina pectoris; E78.00 Pure hypercholesterolemia, unspecified; K21.9 Gastro-esophageal reflux disease without esophagitis; R60.9 Edema, unspecified; K59.09 Other constipation; Z99.81 Dependence on supplemental oxygen; M19.91 Primary osteoarthritis, unspecified site; M25.551 Pain in right hip; M25.552 Pain in left hip; Z79.4 Long term (current) use of insulin; Z87.891 Personal history of nicotine dependence; Z95.5 Presence of coronary angioplasty implant and graft; Z86.711 Personal history of pulmonary embolism; W19.XXXA Unspecified fall, initial encounter
CPT/HCPCS: 36415; 36430; 70450; 70486; 71045; 71046; 74177; 80048; 80053; 81000; 82274; 82962; 83540; 83735; 83880; 84100; 84484; 85007; 85014; 85018; 85025; 85027; 85610; 85730; 86850; 86900; 86901; 86920; 87081; 88305; 94640; 94760

== ENCOUNTER 2019-08-21 15:14 | Inpatient (IN) | payer MEDICARE, OTHER, MEDICAID ==
[2019-08-21] VITALS (8 sets, daily range): BP systolic 103–145; BP diastolic 43–96
[~2019-08-21] VITALS: Ht 162.6 cm; Wt 99.4 kg
[~2019-08-21 15:14] MED LIST changes: +ALBU18HF2 PO; +CALC-68 PO; +DOXY100C2 PO; +POTA2TAB5 PO; +PRD20T PO; +SUCR1TAB36 PO; +TURM500C4 PO
[2019-08-21] MEDS ORDERED: dilTIAZem DRIP PRE-MIX 125 ML IV ONE (16:03)
[2019-08-21] MEDS: dilTIAZem DRIP PRE-MIX 125 ML IV SCH (16:19)
[2019-08-21 16:52] LABS: HEMOGLOBIN 10.6 G/DL (11.5-16.0); MEAN PLATELET VOLUME 11.1 FL (7.4-10.4); RED CELL DISTRIBUTION WIDTH 15.2 % (10.0-14.5); WHITE BLOOD COUNT 5.5 10^3/uL (4.3-11.0)
[2019-08-21 17:03] LABS: ALBUMIN 3.9 GM/DL (3.2-4.5); POTASSIUM 4.8 MMOL/L (3.6-5.0)
[2019-08-21 17:04] LABS: CALCIUM 9.3 MG/DL (8.5-10.1)
[2019-08-21 17:05] LABS: INR 1.6 (0.8-1.4); PROTHROMBIN TIME PATIENT 19.6 SEC (12.2-14.7)
[2019-08-21 17:06] LABS: TOTAL PROTEIN 7.5 GM/DL (6.4-8.2)
[2019-08-21 17:07] LABS: BILIRUBIN,TOTAL 0.3 MG/DL (0.1-1.0)
[2019-08-21 17:09] LABS: CREATININE SERUM 1.55 MG/DL (0.60-1.30)
[2019-08-21 17:12] LABS: MAGNESIUM 1.7 MG/DL (1.6-2.4)
[2019-08-21] MEDS: ENOXAPARIN 100 MG/1 ML (LOVENOX) SYR SC SCH (18:18)
[2019-08-21] MEDS: inSUlin ASPART (NovoLOG) 1 UNIT/0.01 ML (CHARGE PER UNIT) SC SCH ×2 (18:23→21:01)
--- OUTSIDE RECORDS SUMMARY | 2019-08-21 20:56 | XMS REPORT ---
Author Author Sarah AMADO Organization [facility] [place] Address [address] [place] [address] Care Team Providers Care Toll Booth Operator Name Role Phone GEE AMADO Unavailable PROBLEMS Type Condition ICD9-CM Code OJJ19-AT Code Onset Dates Condition S tatus SNOMED Code Problem Coronary artery disease invo lving solomon coronary artery of solomon heart without angina pectoris I25.10 Active 1641 330643203 Problem Hyperlipidemia, unspecified hyperlipidemia type E7 8.5 Active 59040339 Problem Paresthesias in right hand R20.2 Act chidi 474556208 Problem Neck pain M54.2 Active 43776263 Problem GERD (gastroesophageal reflux disease) K21.9 Active 793096871 Problem Essential hypertension I10 Active 10397972 Problem Chronic kidney disease, unspecified CKD stage N18. 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 Active 208211777 Problem Morbid (severe) obesity due to excess calories E66 .01 Active 285110427 Problem Chronic kidney disease, stage 3 (moderate) N18.3 Active 434103150 Problem Other cirrhosis of liver K74.69 Activ e 18552501 Problem Chronic diastolic (congestive) heart failure I50.3 2 Active [id number] ALLERGIES No Information ENCOUNTERS Encounter Location Date Diagnosis [facility] [place] [address] [facility] [id number] [address] [place] [phone] 14 Jul, 2019 Anemia due to acute blood lo ss D62 and Essential hypertension I10 [facility] [place] [address] [facility] [id number] [address] [place] [phone] July, [facility] [place] [address] [facility] [id number] [address] [place] [phone] July, [facility] [place] [address] [facility] [id number] [address] [place] [phone] July, [address] [id number] [place] [address] July, [address] [id number] [place] [address] Jun, [address] [id number] [address] Jun, Chronic diastolic (congestiv e) heart failure I50.32 ; COPD (chronic obstructive pulmonary disease) J44.9 ; Dyspnea R06.00 and Weakness R53.[address] [place] [address] Jun, [facility] [place] [address] [facility] [id number] [address] [place] [phone] Jun, [facility] [place] [address] [facility] [id number] [address] [place] [phone] Jun, [facility] [place] [address] [facility] [id number] [address] [place] [phone] May, [facility] [place] [address] [facility] [id number] [address] [place] [phone] May, Other cirrhosis of liver K74 .69 and Type 2 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, unspecified whether long chain quiller tender insulin use E11.40 [facility] [place] [address] [facility] [id number] [address] [place] [phone] 16 May, 2019 [facility] [place] [address] [facility] [id number] [address] [place] [phone] 12 May, 2019 Type 2 diabetes mellitus wit h other specified complication E11.69 ; Other cirrhosis of liver K74.69 ; Chronic kidney disease, stage 3 (moderate) N18.3 ; Chronic diastolic (congestive) heart failure I50.32 ; Paroxysmal atrial fibrillation I48.0 ; Morbid (severe) obesity due to excess calories E66.01 and Hyperlipidemia, unspecified hyperlipidemia type E78.5 [facility] [place] [address] [id number] [address] [place] [phone] May, [address] [id number], [place] [address] Apr, [facility] [place] [address] [id number] [address] [place] [phone] Mar, [facility] [place] [address] [id number] [address] [place] [phone] Mar, [facility] [place] [address] [id number] [address] [place] [phone] Mar, [facility] [place] [address] [id number] [address] [place] [phone] Mar, [facility] [place] [address] [facility] [id number] [address] [place] [phone] Mar, [address] [id number], [place] [address] Mar, [address] [id number], [place] [address] Mar, [facility] [place] [address] [id number] [address] [place] [phone] Mar, [facility] [place] [address] [id number] [address] [place] [phone] Mar, [facility] [place] [address] [id number] [address] [place] [phone] Mar, [facility] [place] [address] [facility] [id number] [address] [place] [phone] Feb, [facility] [place] [address] [id number] [address] [place] [phone] Feb, Coronary artery disease invo lving solomon coronary artery of solomon heart without angina pectoris I25.10 ; Chronic kidney disease, stage 3 (moderate) N18.3 and Morbid (severe) obesity due to excess calories E66.01 [facility] [address] [id number] [address] [place] [phone] Feb, [facility] [address] [id number] [address] [place] [phone] Feb, [facility] [address] [id number] [address] [place] [phone] Feb, [facility] [address] [id number] [address] [place] [phone] Jan, [facility] [address] [id number] [address] [place] [phone] Jan, [facility] [address] [id number] [address] [place] [phone] Jan, [facility] [address] [id number] [address] [place] [phone] Jan, [facility] [address] [id number] [address] [place] [phone] Jan, [facility] [address] [id number] [address] [place] [phone] Jan, [facility] [address] [id number] [address] [place] [phone] Dec, [facility] [id number] [place] [phone] Dec, [facility] [address] [id number] [address] [place] [phone] Nov, [facility] [address] [id number] [address] [place] [phone] Nov, [facility] [address] [id number] [address] [place] [phone] Nov, [facility] [address] [id number] [address] [place] [phone] Nov, [address] [id number] [place] [address] Oct, [facility] [place] [address] [facility] [id number] [address] [place] [phone] Oct, [address] [id number], [place] [address] Sep, [facility] [place] [address] [facility] [id number] [address] [place] [phone] Sep, [facility] [place] [address] [facility] [id number] [address] [place] [phone] Aug, Type 2 diabetes mellitus wit h unspecified complications E11.8 ; nursing home 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 and Obesity (BMI 30-39.9) E66.[address] [id number], [place] [address] Aug, Type 2 diabetes mellitus wit hout complications E11.[address] [id number], [place] [address] Aug, Type 2 diabetes mellitus wit hout complications E11.9 [facility] [place] [address] [facility] [id number] [address] [place] [phone] Aug, [facility] [address] [id number], [place] [address] July, 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 and Type 2 diabetes mellitus with unspecified complications E11.[address] [id number], [place] [address] July, Screening mammogram, encount er for Z12.31 [facility] [place] [address] [facility] [id number] [address] [place] [phone] July, [facility] [place] [address] [facility] [id number] [address] [place] [phone] July, Paroxysmal atrial fibrillati on I48.0 and Coronary artery disease involving solomon coronary artery of solomon heart without angina pectoris I25.10 [facility] [place] [address] [facility] [id number] [address] [place] [phone] Jun, [facility] [place] [address] [facility] [id number] [address] [place] [phone] Jun, [facility] [place] [address] [place] [id number] [place] [address] May, [facility] [place] [address] [facility] [id number] [place] [address] May, Type 2 diabetes mellitus wit h unspecified complications E11.8 ; 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 ; Leg cramps R25.2 ; Essential hypertension I10 and Routine adult health maintenance Z00.00 [place] [address] [place] [id number] [address] [place] [phone] 07 Apr, 2018 [facility] [place] [address] [place] [id number] [address] [place] [phone] Apr, [facility] [place] [address] [address] Mar, Type 2 diabetes mellitus wit hout complications E11.9 [place] [address] [place] [id number] [address] [place] [phone] Mar, Type 2 diabetes mellitus wit hout complications E11.9 [place] [address] [place] [id number] [address] [place] [phone] Mar, Type 2 diabetes mellitus wit hout complications E11.9 [place] [address] [facility] [id number] [address] [place] [phone] Feb, Essential (primary) hyperten sofie I10 [facility] [place] [address] [facility] [id number] [address] [place] [phone] Feb, [facility] [place] [address] [place] [id number] [address] [place] [phone] Jan, Type 2 diabetes mellitus wit hout complications E11.9 [facility] [place] [address] [id number] [address] [place] [phone] 30 Dec, 2017 [facility] [place] [address] [id number] [address] [place] [phone] Dec, Type 2 diabetes mellitus wit h diabetic neuropathy, unspecified E11.40 ; nursing home 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 and Chronic kidney disease, unspecified CKD stage N18.9 [facility] [place] [address] [id number] [address] [place] [phone] 15 Dec, 2017 Type 2 diabetes mellitus wit hout complications E11.9 [facility] [place] [address] [id number] [address] [place] [phone] Dec, [facility] [place] [address] [facility] [id number] [address] [place] [phone] 09 Dec, 2017 Type 2 diabetes mellitus wit hout complications E11.9 [facility] [place] [address] [id number] [address] [place] [phone] Dec, [facility] [place] [address] [id number] [address] [place] [phone] Oct, [facility] [place] [address] [id number] [address] [place] [phone] Sep, [facility] [place] [address] [id number] [address] [place] [phone] Aug, [facility] [place] [address] [facility] [id number] [address] [place] [phone] Aug, Exposure to hepatitis C Z20. 5 and Routine adult health maintenance Z00.00 [facility] [place] [address] [facility] [id number] [address] [place] [phone] Aug, Exposure to hepatitis C Z20. 5 [facility] [place] [address] [facility] [id number] [address] [place] [phone] 11 Aug, 2017 Medicare annual wellness vis it, initial Z00.00 ; Coronary artery disease involving solomon coronary artery of solomon heart without angina pectoris I25.10 ; Hyperlipidemia, unspecified hyperlipidemia type E78.5 ; Essential hypertension I10 ; GERD (gastroesophageal reflux disease) K21.9 ; Routine adult health maintenance Z00.00 ; Encounter for immunization Z23 ; Type 2 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, unspecified E11.40 and nursing home 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 [facility] [place] [address] [facility] [id number] [address] [place] [phone] 30 Jul, 2017 Type 2 diabetes mellitus wit hout complications E11.9 and Type 2 diabetes mellitus without complications E11.9 [facility] [place] [address] [id number] [address] [place] [phone] July, [facility] [place] [address] [facility] [id number] [address] [place] [phone] July, [facility] [place] [address] [facility] [id number] [address] [place] [phone] Mar, Type 2 diabetes mellitus wit hout complications E11.9 [facility] [place] [address] [facility] [id number] [address] [place] [phone] Mar, [facility] [place] [address] [facility] [id number] [address] [place] [phone] Feb, Type 2 diabetes mellitus wit hout complications E11.9 [facility] [place] [address] [facility] [id number] [address] [place] [phone] Jan, Type 2 diabetes mellitus wit hout complications E11.9 [facility] [place] [address] [facility] [id number] [address] [place] [phone] Jan, Type 2 diabetes mellitus wit hout complications E11.9 [facility] [place] [address] [facility] [id number] [address] [place] [phone] Nov, [facility] [place] [address] [facility] [id number] [address] [place] [phone] Oct, Type 2 diabetes mellitus wit hout complications E11.9 [facility] [place] [address] [facility] [id number] [address] [place] [phone] Oct, Type 2 diabetes mellitus wit hout complications E11.9 ; Essential hypertension I10 and Neck pain M54.2 [facility] [place] [address] [facility] [id number] [address] [place] [phone] Sep, [facility] [place] [address] [facility] [id number] [address] [place] [phone] Aug, Type 2 diabetes mellitus wit hout complications E11.9 [facility] [place] [address] [facility] [id number] [address] [place] [phone] Jun, Type 2 diabetes mellitus wit hout complications E11.9 ; Neck pain M54.2 and Essential hypertension I10 [facility] [place] [address] [facility] [id number] [address] [place] [phone] Jun, [facility] [place] [address] [facility] [id number] [address] [place] [phone] Jun, [facility] [place] [address] [facility] [id number] [address] [place] [phone] Jun, GERD (gastroesophageal reflu x disease) K21.9 and Type 2 diabetes mellitus without complications E11.9 [facility] [place] [address] [facility] [id number] [address] [place] [phone] Mar, Paresthesias in right hand R 20.2 [facility] [place] [address] [facility] [id number] [address] [place] [phone] Feb, Type 2 diabetes mellitus wit hout complications E11.9 [facility] [address] [id number] [address] [place] [address] [id number] Feb, Encounter for dental examina tion Z01.20 [facility] [place] [address] [facility] [id number] [address] [place] [phone] Feb, Type 2 diabetes mellitus wit hout complications E11.9 and Neck pain M54.2 [facility] [place] [address] [facility] [id number] [address] [place] [phone] Feb, Type 2 diabetes mellitus wit hout complications E11.9 [facility] [address] [id number] [address] [place] [address] [id number] Jan, Dental examination Z01.20 [facility] [place] [address] [id number] [address] [place] [phone] Jan, [facility] [place] [address] [id number] [address] [place] [phone] Jan, [facility] [address] [id number] [address] [place] [address] [id number] Dec, Dental caries K02.9 [facility] [place] [address] [id number] [address] [place] [phone] Nov, [facility] [place] [address] [id number] [address] [place] [phone] Nov, [facility] [place] [address] [id number] [address] [place] [phone] Oct, Type 2 diabetes mellitus wit hout complications E11.9 ; Neck pain M54.2 and Essential hypertension I10 [facility] [place] [address] [id number] [address] [place] [phone] Oct, [facility] [address] [id number] [address] [place] [address] [phone] Oct, Dental examination Z01.20 [facility] [place] [address] [id number] [address] [place] [phone] Sep, [facility] [place] [address] [id number] [address] [place] [phone] Sep, [facility] [place] [address] [id number] [address] [place] [phone] Aug, Essential (primary) hyperten sofie I10 [facility] [place] [address] [id number] [address] [place] [phone] Aug, [facility] [place] [address] [id number] [address] [place] [phone] Aug, [facility] [place] [address] [facility] [id number] [address] [place] [phone] July, Essential (primary) hyperten sofie I10 [facility] [place] [address] [facility] [id number] [address] [place] [phone] July, Essential (primary) hyperten sofie I10 and Type 2 diabetes mellitus without complications E11.9 [facility] [place] [address] [facility] [id number] [address] [place] [phone] July, [facility] [place] [address] [place] [id number] [address] [place] [phone] Jun, GERD (gastroesophageal reflu x disease) K21.9 [facility] [place] [address] [place] [id number] [address] [place] [phone] Jun, GERD (gastroesophageal reflu x disease) K21.9 [facility] [place] [id number] [place] [phone] Jun, [facility], [place] [address] [id number] [address] [place] [phone] Jun, Neuropathy G62.9 [facility], [place] [address] [id number] [address] [place] [phone] May, Essential (primary) hyperten sofie I10 [facility] [address] [facility] [id number] [address] [place] [phone] May, Bronchitis J40 [facility], [place] [address] [facility] [id number] [address] [place] [phone] 15 May, 2015 Type 2 diabetes mellitus wit hout complications E11.9 and Essential (primary) hypertension I10 [facility], [place] [address] [facility] [id number] [address] [place] [phone] May, [facility], [place] [address] [facility] [id number] [address] [place] [phone] May, GERD (gastroesophageal reflu x disease) K21.9 [facility], [place] [address] [facility] [id number] [address] [place] [phone] Apr, Other and unspecified hyperl ipidemia 272.4 ; Unspecified essential hypertension 401.9 ; Type 2 diabetes mellitus without complications E11.9 ; Neck pain M54.2 and Paresthesias in right hand R20.2 [facility], [place] [address] [id number] [address] [place] [phone] Apr, [facility], [place] [address] [id number] [address] [place] [phone] Apr, Neuropathy G62.9 [facility], [place] [address] [id number] [address] [place] [phone] Mar, [facility], [place] [address] [facility] [id number] [address] [place] [phone] Feb, [facility], [place] [address] [facility] [id number] [address] [place] [phone] Jan, [facility], [place] [address] [facility] [id number] [address] [place] [phone] Dec, [facility], [place] [address] [facility] [id number] [address] [place] [phone] Dec, Type 2 diabetes mellitus wit hout complications E11.9 ; Encounter for immunization Z23 and Neck pain M54.2 [facility] [facility] [place] [address] [id number] [address] [place] [address] Dec, [facility], [place] [address] [id number] [address] [place] [address] Nov, [facility], [place] [address] [id number] [address] [place] [address] Nov, [facility], [place] [address] [facility] [id number] [address] [place] [address] Oct, [facility], [place] [address] [id number] [address] [place] [address] Oct, [facility], [place] [address] [facility] [id number] [address] [place] [address] Sep, [facility], [place] [address] [id number] [address] [place] [address] Sep, Coronary atherosclerosis of unspecified type of vessel, solomon or graft 414.00 ; Diabetes mellitus without mention of complication, type II or unspecified type, not stated as uncontrolled 250.00 ; Hyperlipidemia 272.4 and HTN (hypertension) 401.9 [facility], [place] [address] [id number] [address] [place] [address] Aug, [facility], [place] [address] [id number] [address] [place] [address] July, [facility], [place] [address] [id number] [address] [place] [address] Jun, [facility], [place] [address] [id number] [address] [place] [address] Jun, [facility], [place] [address] [id number] [address] [place] [address] May, [facility], [place] [address] [id number] [address] [place] [address] May, [facility], [place] [address] [id number] [address] [place] [phone] May, [facility], [place] [address] [facility] [id number] [address] [place] [phone] May, [facility], [place] [address] [id number] [address] [place] [phone] Apr, [facility], [place] [address] [id number] [address] [place] [phone] Apr, [facility], [place] [address] [id number] [address] [place] [phone] Apr, [facility], [place] [address] [id number] [address] [place] [phone] Apr, [facility], [place] [address] [id number] [address] [place] [phone] Apr, [facility] [address] [id number] [address] [place] [address], [place] [address] Apr, [facility] [address] [id number] [address] [place] [address], [place] [address] Apr, [facility] [address] [id number] [address] [place] [address], [place] [address] Apr, [facility] [address] [id number] [address] [place] [address], [place] [address] Mar, [facility] [address] [id number] [address] [place] [address], [place] [address] Mar, [facility] [address] [id number] [address] [place] [address], [place] [address] Mar, [facility] [address] [id number] [address] [place] [address], [place] [address] Mar, [facility] [address] [id number] [address] [place] [address], [place] [address] Mar, [facility] [address] [id number] [address] [place] [address], [place] [address] Mar, [facility] [address] [id number] [address] [place] [address], [place] [address] Mar, [facility] [address] [id number] [address] [place] [address] Mar, [facility] [address] [id number] [address] [place] [phone] Feb, [facility] [address] [id number] [address] [place] [address], [place] [address] Feb, [facility] [address] [id number] [address] [place] [address], [place] [address] Feb, [facility] [address] [id number] [address] [place] [address], [place] [address] Feb, [facility] [address] [id number] [address] [place] [address], [place] [address] Feb, [facility] [address] [id number] [address] [place] [address], [place] [address] Feb, [facility] [address] [id number] [address] [place] [address], [place] [address] Feb, [facility] [address] [id number] [address] [place] [address], [place] [address] Feb, [facility] [address] [id number] [address] [place] [address], [place] [address] Feb, [facility] [address] [id number] [address] [place] [address], [place] [address] Feb, [facility] [address] [id number] [address] [place] [address], [place] [address] Jan, [facility] [address] [id number] [address] [place] [address], [place] [address] Jan, [facility] [address] [id number] [address] [place] [address], [place] [address] Dec, [facility] [address] [id number] [address] [place] [address], [place] [address] Dec, [facility] [address] [id number] [address] [place] [address], [place] [address] Dec, [facility] [address] [id number] [address] [place] [address], [place] [address] Dec, [facility] [address] [id number] [address] [place] [address], [place] [address] 15 Nov, 2013 [facility] [address] [id number] [address] [place] [address], [place] [address] 15 Nov, 2013 [facility] [address] [id number] [address] [place] [address], [place] [address] Nov, [facility] [address] [id number] [address] [place] [address], [place] [address] Nov, [facility] [address] [id number] [facility] [place] [address] Oct, [facility] [address] [id number] [address] [place] [address], [place] [address] Oct, [facility] [address] [id number] [address] [place] [address], [place] [address] Oct, [facility] [address] [id number] [address] [place] [address], [place] [address] Oct, [facility] [address] [id number] [address] [place] [address], [place] [address] Oct, [facility] [address] [id number] [address] [place] [address], [place] [address] Sep, [facility] [address] [id number] [address] [place] [address], [place] [address] Sep, [facility] [address] [id number] [address] [place] [address], [place] [address] Sep, [facility] [address] [id number] [address] [place] [address], [place] [address] Sep, [facility] [address] [id number] [address] [place] [address], [place] [address] Sep, [facility] [address] [id number] [address] [place] [address], [place] [address] Sep, [facility] [address] [id number] [address] [place] [address], [place] [address] Aug, [facility] [address] [id number] [address] [place] [address], [place] [address] Aug, [facility] [address] [id number] [address] [place] [address], [place] [address] Aug, [facility] [address] [id number] [address] [place] [address], [place] [address] Aug, [facility] [address] [id number] [facility] [place] [address] Aug, [facility] [address] [id number] [address] [place] [address], [place] [address] Aug, [facility] [address] [id number] [address] [place] [address], [place] [address] July, [facility] [address] [id number] [address] [place] [address], [place] [address] July, [facility] [address] [id number] [address] [place] [address], [place] [address] Jun, [facility] [address] [id number] [address] [place] [address], [place] [address] Jun, [facility] [address] [id number] [address] [place] [address], [place] [address] May, [facility] [address] [id number] [address] [place] [address], [place] [address] May, [facility] [address] [id number] [address] [place] [address], [place] [address] May, [facility] [address] [id number] [address] [place] [address], [place] [address] May, [facility] [address] [id number] [address] [place] [address], [place] [address] Apr, [facility] [address] [id number] [address] [place] [address], [place] [address] Apr, [facility] [address] [id number] [address] [place] [address], [place] [address] Apr, [facility] [address] [id number] [address] [place] [address], [place] [address] Apr, [facility] [address] [id number] [address] [place] [address], [place] [address] Apr, [facility] [address] [id number] [address] [place] [address], [place] [address] Apr, [facility] [address] [id number] [address] [place] [address], [place] [address] Feb, [facility] [address] [id number] [address] [place] [address], [place] [address] Feb, [facility] [address] [id number] [address] [place] [address], [place] [address] Feb, [facility] [address] [id number] [address] [place] [address], [place] [address] Feb, [facility] [address] [id number] [address] [place] [address], [place] [address] Jan, [facility] [address] [id number] [address] [place] [address], [place] [address] Jan, [facility] [address] [id number] [address] [place] [address], [place] [address] Dec, [facility] [address] [id number] [address] [place] [address] Dec, [facility] [address] [id number] [address] [place] [address] Dec, [facility] [address] [id number] [address] [place] [address] Dec, [facility] [address] [id number] [address] [place] [address] Oct, [facility] [address] [id number] [address] [id number] Oct, [facility] [address] [id number] [address] [place] [id number] Oct, [facility] [address] [id number] [address] [place] [address] Oct, [facility] [address] [id number] [address] [place] [address] Sep, [facility] [address] [id number] [address] [place] [address] Sep, [facility] [address] [id number] [address] [place] [address], [place] [address] Aug, [facility] [address] [id number] [address] [place] [address], [place] [address] Aug, [facility] [address] [id number] [address] [place] [address], [place] [address] Aug, [facility] [address] [id number] [address] [place] [address], [place] [address] Aug, [facility] [address] [id number] [address] [place] [address], [place] [address] July, [facility] [address] [id number] [address] [place] [address], [place] [address] Jun, [facility] [address] [id number] [address] [place] [address], [place] [address] May, [facility] [address] [id number] [address] [place] [address], [place] [address] May, [facility] [address] [id number] [address] [place] [address], [place] [address] May, [facility] [address] [id number] [address] [place] [address], [place] [address] May, [facility] [address] [id number] [address] [place] [address], [place] [address] May, [facility] [address] [id number] [address] [place] [address], [place] [address] Apr, [facility] [address] [id number] [address] [place] [address], [place] [address] Apr, [facility] [address] [id number] [address] [place] [address], [place] [address] Apr, [facility] [address] [id number] [address] [place] [address], [place] [address] Apr, [facility] [address] [id number] [address] [place] [address], [place] [address] Mar, [facility] [address] [id number] [address] [place] [address], [place] [address] Mar, [facility] [address] [id number] [address] [place] [address], [place] [address] Mar, [facility] [address] [id number] [address] [place] [address], [place] [address] Mar, [facility] [address] [id number] [address] [place] [address], [place] [address] Jan, [facility] [address] [id number] [address] [place] [address], [place] [address] Jan, [facility] [address] [id number] [address] [place] [address], [place] [address] Jan, [facility] [address] [id number] [address] [place] [address], [place] [address] Jan, [facility] [address] [id number] [address] [place] [address], [place] [address] Jan, [facility] [address] [id number] [address] [place] [address], [place] [address] Jan, [facility] [address] [id number] [address] [place] [address], [place] [address] Jan, [facility] [address] [id number] [address] [place] [address], [place] [address] Jan, [facility] [address] [id number] [address] [place] [address], [place] [address] Jan, [facility] [address] [id number] [address] [place] [address], [place] [address] Jan, [facility] [address] [id number] [address] [place] [address], [place] [address] Dec, [facility] [address] [id number] [address] [address] Dec, [facility] [place] [address] [id number] [address] [place] [address] Dec, [facility] [place] [address] [id number] [address] [place] [address] Nov, [facility] [place] [address] [id number] [address] [place] [address] Nov, [facility] [place] [address] [id number] [address] [place] [address] Nov, [facility] [place] [address] [id number] [address] [place] [address] Nov, [facility] [place] [address] [id number] [address] [place] [address] Oct, [facility] [place] [address] [facility] [id number] [address] [place] [address] Oct, IMMUNIZATIONS No Known Immunizations SOCIAL HISTORY Never Assessed REASON FOR VISIT PLAN OF CARE VITAL SIGNS MEDICATIONS No Known Medications RESULTS No Results PROCEDURES No Known [...] egd 01/2019 Hospitalization History surgeries Hospitalization History letcher 06/[address] [facility]- 07[facility]2018 Hospitalization History [facility] v [facility] - heart attack and rehab -03/02/2019
--- OUTSIDE RECORDS SUMMARY | 2019-08-21 20:56 | XMS REPORT ---
Author Author Sarah Clarke Organization [facility] Address [address] [place] [address] Care Team Providers Care Efficiency Expert Name Role Phone Tricia IBAN Unavailable PROBLEMS Type Condition ICD9-CM Code NRS90-GO Code Onset Dates Condition S tatus SNOMED Code Problem Coronary artery disease invo [place]ving [place] coronary artery of [place] heart without angina pectoris I25.10 Active 1641 [id number] Problem Hyperlipidemia, unspecified hyperlipidemia type E7 8.5 Active 96543578 Problem Paresthesias in right hand R20.2 Act chidi [id number] Problem Neck pain M54.2 Active 86256308 Problem GERD (gastroesophageal reflux disease) K21.9 Active 997868051 Problem Essential hypertension I10 Active 26000380 Problem Chronic kidney disease, unspecified CKD stage N18. 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 Active 031042783 Problem Morbid (severe) obesity due to excess calories E66 .01 Active 344767992 Problem Chronic kidney disease, stage 3 (moderate) N18.3 Active 404653187 Problem Other cirrhosis of liver K74.69 Activ e 47392472 Problem Chronic diastolic (congestive) heart failure I50.3 2 Active 063810414 ALLERGIES No Information ENCOUNTERS Encounter Location Date Diagnosis [facility] [address] [facility] [id number] [address] [place] [address] July, Anemia due to acute blood lo ss D62 and Essential hypertension I10 [facility] [address] [facility] [id number] [address] [place] [id number] July, [facility] [address] [facility] [id number] [address] [place] [id number] July, [facility] [address] [facility] [id number] [address] [place] [phone] July, [address] [id number] [place] [address] July, [address] [id number] [address] Jun, [address] [id number] [address] Jun, Chronic diastolic (congestiv e) heart failure I50.32 ; COPD (chronic obstructive pulmonary disease) J44.9 ; Dyspnea R06.00 and Weakness R53.[address] [place] [address] Jun, [facility] [address] [facility] [id number] [address] [place] [id number] Jun, [facility] [address] [facility] [id number] [address] [place] [phone] Jun, [facility] [address] [facility] [id number] [address] [place] [phone] May, [facility] [address] [facility] [id number] [address] [place] [phone] May, Other cirrhosis of liver K74 .69 and Type 2 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, unspecified whether terminal computer operator insulin use E11.40 [facility] [address] [facility] [id number] [address] [place] [id number] 16 May, 2019 [facility] [address] [facility] [id number] [address] [place] [id number] 12 May, 2019 Type 2 diabetes mellitus wit h other specified complication E11.69 ; Other cirrhosis of liver K74.69 ; Chronic kidney disease, stage 3 (moderate) N18.3 ; Chronic diastolic (congestive) heart failure I50.32 ; Paroxysmal atrial fibrillation I48.0 ; Morbid (severe) obesity due to excess calories E66.01 and Hyperlipidemia, unspecified hyperlipidemia type E78.5 [facility] [address] [id number] [address] [place] [phone] May, [address] [id number] [address] Apr, [facility] [address] [id number] [address] [place] [phone] Mar, [facility] [address] [id number] [address] [place] [phone] Mar, [facility] [address] [id number] [address] [place] [phone] Mar, [facility] [address] [id number] [address] [place] [id number] Mar, [facility] [address] [id number] [address] [place] [phone] Mar, [address] [id number], [place] [address] Mar, [address] [id number], [place] [address] Mar, [facility] [address] [id number] [address] [place] [phone] Mar, [facility] [address] [id number] [address] [place] [phone] Mar, [facility] [address] [id number] [address] [place] [phone] Mar, [facility] [address] [facility] [id number] [address] [place] [id number] Feb, [facility] [address] [id number] [address] [place] [phone] Feb, Coronary artery disease invo [place] coronary artery of [place] heart without angina pectoris I25.10 ; Chronic kidney disease, stage 3 (moderate) N18.3 and Morbid (severe) obesity due to excess calories E66.01 [facility] [address] [id number] [address] [place] [id number] Feb, [facility] [address] [id number] [address] [place] [id number] Feb, [facility] [address] [id number] [address] [place] [phone] Feb, [facility] [address] [id number] [address] [place] [phone] Jan, [facility] [address] [id number] [address] [place] [id number] Jan, [facility] [address] [id number] [address] [place] [phone] Jan, [facility] [address] [id number] [address] [place] [phone] Jan, [facility] [address] [id number] [address] [place] [id number] Jan, [facility] [address] [id number] [address] [place] [phone] Jan, [facility] [address] [id number] [address] [place] [phone] Dec, [facility] [place] [address] [id number], [place] [address] Dec, [facility] [address] [id number] [address] [place] [phone] Nov, [facility] [address] [id number] [address] [place] [phone] Nov, [facility] [address] [id number] [address] [place] [phone] Nov, [facility] [address] [id number] [address] [place] [phone] Nov, [address] [id number] [place] [address] Oct, [facility] [address] [facility] [id number] [address] [place] [phone] Oct, [address] [id number], [place] [address] Sep, [facility] [address] [facility] [id number] [address] [place] [phone] Sep, [place] [address] [facility] [id number] [address] [place] [phone] Aug, Type 2 diabetes mellitus wit h unspecified complications E11.8 ; [facility] 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 and Obesity (BMI 30-39.9) E66.[address] [id number] [address] Aug, Type 2 diabetes mellitus wit hout complications E11.[address] [id number], [place] [address] Aug, Type 2 diabetes mellitus wit hout complications E11.9 [place] [address] [facility] [id number] [address] [place] [phone] Aug, [facility] [place] [address] [id number] [address] July, termination clerk 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 ins ulin Z79.4 and Type 2 diabetes mellitus with unspecified complications E11.[address] [id number] [address] July, Screening mammogram, encount er for Z12.31 [facility] [address] [facility] [id number] [address] [place] [phone] July, [place] [address] [facility] [id number] [address] [place] [phone] July, Paroxysmal atrial fibrillati on I48.0 and Coronary artery disease involving [place] coronary artery of [place] heart without angina pectoris I25.10 [facility] [address] [id number] Jun, [facility] [address] [facility] [id number] [address] [place] [phone] Jun, [facility] [address] [address] May, [facility] [address] [place] [id number] [place] [address] 08 May, 2018 Type 2 diabetes mellitus wit h unspecified complications E11.8 ; termination clerk 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 ; Leg cramps R25.2 ; Essential hypertension I10 and Routine adult health maintenance Z00.00 [place] [address] [address] 07 Apr, 2018 [facility] [address] [address] 07 Apr, 2018 [facility] [address] [address] Mar, Type 2 diabetes mellitus wit hout complications E11.9 [facility] [address] [address] Mar, Type 2 diabetes mellitus wit hout complications E11.9 [facility] [address] [address] Mar, Type 2 diabetes mellitus wit hout complications E11.9 [facility] [address] [place] [id number] [place] [address] 14 Feb, 2018 Essential (primary) hyperten sofie I10 [facility] [address] [place] [id number] [address] [place] [id number] Feb, [facility] [address] [address] Jan, Type 2 diabetes mellitus wit hout complications E11.9 [facility] [address] [id number] [address] [place] [id number] 30 Dec, 2017 [facility] [address] [id number] [address] [place] [phone] Dec, Type 2 diabetes mellitus wit h diabetic neuropathy, unspecified E11.40 ; [facility] 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 and Chronic kidney disease, unspecified CKD stage N18.9 [facility] [address] [id number] [address] [place] [id number] 15 Dec, 2017 Type 2 diabetes mellitus wit hout complications E11.9 [facility] [address] [id number] [address] [place] [id number] 10 Dec, 2017 [facility] [address] [facility] [id number] [address] [place] [phone] 09 Dec, 2017 Type 2 diabetes mellitus wit hout complications E11.9 [facility] [address] [id number] [address] [place] [phone] Dec, [facility] [address] [id number] [address] [place] [phone] Oct, [facility] [address] [id number] [address] [place] [phone] Sep, [facility] [address] [id number] [address] [place] [phone] Aug, [facility] [address] [facility] [id number] [address] [place] [phone] Aug, Exposure to hepatitis C Z20. 5 and Routine adult health maintenance Z00.00 [facility] [address] [facility] [id number] [address] [place] [phone] Aug, Exposure to hepatitis C Z20. 5 [facility] [address] [facility] [id number] [address] [place] [address] Aug, Medicare annual wellness vis it, initial Z00.00 ; Coronary artery disease involving [place] coronary artery of [place] heart without angina pectoris I25.10 ; Hyperlipidemia, unspecified hyperlipidemia type E78.5 ; Essential hypertension I10 ; GERD (gastroesophageal reflux disease) K21.9 ; Routine adult health maintenance Z00.00 ; Encounter for immunization Z23 ; Type 2 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, unspecified E11.40 and termination clerk 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 [facility] [address] [facility] [id number] [address] [place] [id number] 30 Jul, 2017 Type 2 diabetes mellitus wit hout complications E11.9 and Type 2 diabetes mellitus without complications E11.9 [facility] [address] [facility] [id number] [address] [place] [phone] July, [facility] [address] [facility] [id number] [address] [place] [phone] July, [facility] [address] [facility] [id number] [address] [place] [id number] Mar, Type 2 diabetes mellitus wit hout complications E11.9 [facility] [address] [facility] [id number] [address] [place] [phone] Mar, [facility] [address] [facility] [id number] [address] [place] [phone] Feb, Type 2 diabetes mellitus wit hout complications E11.9 [facility] [address] [facility] [id number] [address] [place] [id number] 16 Jan, 2017 Type 2 diabetes mellitus wit hout complications E11.9 [facility] [address] [facility] [id number] [address] [place] [phone] Jan, Type 2 diabetes mellitus wit hout complications E11.9 [facility] [address] [facility] [id number] [address] [place] [phone] Nov, [facility] [address] [facility] [id number] [address] [place] [id number] 16 Oct, 2016 Type 2 diabetes mellitus wit hout complications E11.9 [facility] [address] [facility] [id number] [address] [place] [phone] Oct, Type 2 diabetes mellitus wit hout complications E11.9 ; Essential hypertension I10 and Neck pain M54.2 [facility] [address] [facility] [id number] [address] [place] [phone] Sep, [facility] [address] [facility] [id number] [address] [place] [phone] Aug, Type 2 diabetes mellitus wit hout complications E11.9 [facility] [address] [facility] [id number] [address] [place] [phone] Jun, Type 2 diabetes mellitus wit hout complications E11.9 ; Neck pain M54.2 and Essential hypertension I10 [facility] [address] [facility] [id number] [address] [place] [phone] Jun, [facility] [address] [facility] [id number] [address] [place] [phone] Jun, [facility] [address] [place] [id number] [address] [place] [phone] Jun, GERD (gastroesophageal reflu x disease) K21.9 and Type 2 diabetes mellitus without complications E11.9 [facility] [address] [facility] [id number] [address] [place] [phone] Mar, Paresthesias in right hand R 20.2 [facility] [address] [facility] [id number] [address] [place] [phone] Feb, Type 2 diabetes mellitus wit hout complications E11.9 [facility] [address] [id number] [address] [place] [id number] Feb, Encounter for dental examina tion Z01.20 [facility] [address] [facility] [id number] [address] [place] [phone] Feb, Type 2 diabetes mellitus wit hout complications E11.9 and Neck pain M54.2 [facility] [address] [facility] [id number] [address] [place] [id number] Feb, Type 2 diabetes mellitus wit hout complications E11.9 [facility] [address] [id number] [address] [place] [address] [id number] Jan, Dental examination Z01.20 [facility] [address] [id number] [address] [place] [phone] Jan, [facility] [address] [id number] [address] [place] [phone] Jan, [facility] [address] [id number] [address] [place] [id number] Dec, Dental caries K02.9 [facility] [address] [id number] [address] [place] [phone] Nov, [facility] [address] [id number] [address] [place] [id number] Nov, [facility] [address] [id number] [address] [place] [phone] Oct, Type 2 diabetes mellitus wit hout complications E11.9 ; Neck pain M54.2 and Essential hypertension I10 [facility] [address] [id number] [address] [place] [phone] Oct, [facility] [address] [id number] [address] [place] [id number] Oct, Dental examination Z01.20 [facility] [address] [id number] [address] [place] [id number] Sep, [facility] [address] [id number] [address] [place] [phone] Sep, [facility] [address] [id number] [address] [place] [id number] Aug, Essential (primary) hyperten sofie I10 [facility] [address] [id number] [address] [place] [id number] Aug, [facility] [address] [id number] [address] [place] [phone] Aug, [facility] [address] [facility] [id number] [address] [place] [id number] July, Essential (primary) hyperten sofie I10 [facility] [address] [facility] [id number] [address] [place] [phone] July, Essential (primary) hyperten sofie I10 and Type 2 diabetes mellitus without complications E11.9 [facility] [address] [facility] [id number] [address] [place] [phone] July, [facility] [address] [facility] [id number] [address] [place] [phone] Jun, GERD (gastroesophageal reflu x disease) K21.9 [facility] [address] [facility] [id number] [address] [place] [phone] Jun, GERD (gastroesophageal reflu x disease) K21.9 [facility] [address] [facility] [id number] [address] [place] [phone] Jun, [facility] [address] [facility] [id number] [address] [place] [phone] Jun, Neuropathy G62.9 [facility] [address] [place] [id number] [address] [place] [phone] May, Essential (primary) hyperten sofie I10 [facility] [address] [facility] [id number] [address] [place] [phone] May, Bronchitis J40 [facility] [address] [facility] [id number] [address] [place] [id number] 15 May, 2015 Type 2 diabetes mellitus wit hout complications E11.9 and Essential (primary) hypertension I10 [facility] [address] [facility] [id number] [address] [place] [phone] May, [facility] [address] [facility] [id number] [address] [place] [id number] May, GERD (gastroesophageal reflu x disease) K21.9 [facility] [address] [facility] [id number] [address] [place] [id number] Apr, Other and unspecified hyperl ipidemia 272.4 ; Unspecified essential hypertension 401.9 ; Type 2 diabetes mellitus without complications E11.9 ; Neck pain M54.2 and Paresthesias in right hand R20.2 [facility] [address] [id number] [address] [place] [id number] Apr, [facility] [address] [id number] [address] [place] [phone] Apr, Neuropathy G62.9 [facility] [address] [facility] [id number] [address] [place] [id number] Mar, [facility] [address] [facility] [id number] [address] [place] [phone] Feb, [facility] [address] [facility] [id number] [address] [place] [phone] Jan, [facility] [address] [facility] [id number] [address] [place] [phone] Dec, [facility] [address] [facility] [id number] [address] [place] [id number] Dec, Type 2 diabetes mellitus wit hout complications E11.9 ; Encounter for immunization Z23 and Neck pain M54.2 [facility] [address] [facility] [id number] [address] [place] [phone] Dec, [facility] [address] [id number] [address] [place] [id number] Nov, [facility] [address] [facility] [id number] [address] [place] [phone] Nov, [facility] [address] [facility] [id number] [address] [place] [phone] Oct, [facility] [address] [id number] [address] [place] [phone] Oct, [facility] [address] [facility] [id number] [address] [place] [phone] Sep, [facility] [address] [id number] [address] [place] [phone] Sep, Coronary atherosclerosis of unspecified type of vessel, [place] or graft 414.00 ; Diabetes mellitus without mention of complication, type II or unspecified type, not stated as uncontrolled 250.00 ; Hyperlipidemia 272.4 and HTN (hypertension) 401.9 [facility] [address] [id number] [address] [place] [id number] Aug, [facility] [address] [id number] [address] [place] [phone] July, [facility] [address] [id number] [address] [place] [phone] Jun, [facility] [address] [id number] [address] [place] [phone] Jun, [facility] [address] [id number] [address] [place] [phone] May, [facility] [address] [id number] [address] [place] [phone] May, [facility] [address] [id number] [address] [place] [phone] May, [facility] [address] [id number] [address] [place] [phone] May, [facility] [address] [id number] [address] [place] [phone] Apr, [facility] [address] [id number] [address] [place] [phone] Apr, [facility] [address] [id number] [address] [place] [id number] Apr, [facility] [address] [id number] [address] [place] [id number] Apr, [facility] [address] [id number] [address] [place] [id number] Apr, [facility] [address] [id number] [address] [place] [address], [place] [address] Apr, [facility] [address] [id number] [address] [place] [address], [place] [address] Apr, [facility] [address] [id number] [address] [place] [address], [place] [address] Apr, [facility] [address] [id number] [address] [place] [address], [place] [address] Mar, [facility] [address] [id number] [address] [place] [address], [place] [address] Mar, [facility] [address] [id number] [address] [place] [address], [place] [address] Mar, [facility] [address] [id number] [address] [place] [address], [place] [address] Mar, [facility] [address] [id number] [address] [place] [address], [place] [address] Mar, [facility] [address] [id number] [address] [place] [address], [place] [address] Mar, [facility] [address] [id number] [address] [place] [address], [place] [address] Mar, [facility] [address] [id number] [address] [place] [address], [place] [address] Mar, [facility] [address] [id number] [address] [place] [id number] Feb, [facility] [address] [id number] [address] [place] [address], [place] [address] Feb, [facility] [address] [id number] [address] [place] [address], [place] [address] Feb, [facility] [address] [id number] [address] [place] [address], [place] [address] Feb, [facility] [address] [id number] [address] [place] [address], [place] [address] Feb, [facility] [address] [id number] [address] [place] [address], [place] [address] Feb, [facility] [address] [id number] [address] [place] [address], [place] [address] Feb, [facility] [address] [id number] [address] [place] [address], [place] [address] Feb, [facility] [address] [id number] [address] [place] [address], [place] [address] Feb, [facility] [address] [id number] [address] [place] [address], [place] [address] Feb, [facility] [address] [id number] [address] [place] [address], [place] [address] Jan, [facility] [address] [id number] [address] [place] [address], [place] [address] Jan, [facility] [address] [id number] [address] [place] [address], [place] [address] Dec, [facility] [address] [id number] [address] [place] [address], [place] [address] Dec, [facility] [address] [id number] [address] [place] [address], [place] [address] Dec, [facility] [address] [id number] [address] [place] [address], [place] [address] Dec, [facility] [address] [id number] [address] [place] [address], [place] [address] 15 Nov, 2013 [facility] [address] [id number] [address] [place] [address], [place] [address] 15 Nov, 2013 [facility] [address] [id number] [address] [place] [address], [place] [address] Nov, [facility] [address] [id number] [address] [place] [address], [place] [address] Nov, [facility] [address] [id number] [facility] [place] [address] Oct, [facility] [address] [id number] [address] [place] [address], [place] [address] Oct, [facility] [address] [id number] [address] [place] [address], [place] [address] Oct, [facility] [address] [id number] [address] [place] [address], [place] [address] Oct, [facility] [address] [id number] [address] [place] [address], [place] [address] Oct, [facility] [address] [id number] [address] [place] [address], [place] [address] Sep, [facility] [address] [id number] [address] [place] [address], [place] [address] Sep, [facility] [address] [id number] [address] [place] [address], [place] [address] Sep, [facility] [address] [id number] [address] [place] [address], [place] [address] Sep, [facility] [address] [id number] [address] [place] [address], [place] [address] Sep, [facility] [address] [id number] [address] [place] [address], [place] [address] Sep, [facility] [address] [id number] [address] [place] [address], [place] [address] Aug, [facility] [address] [id number] [address] [place] [address], [place] [address] Aug, [facility] [address] [id number] [address] [place] [address], [place] [address] Aug, [facility] [address] [id number] [address] [place] [address], [place] [address] Aug, [facility] [address] [id number] [facility] [place] [address] Aug, [facility] [address] [id number] [address] [place] [address], [place] [address] Aug, [facility] [address] [id number] [address] [place] [address], [place] [address] July, [facility] [address] [id number] [address] [place] [address], [place] [address] July, [facility] [address] [id number] [address] [place] [address], [place] [address] Jun, [facility] [address] [id number] [address] [place] [address], [place] [address] Jun, [facility] [address] [id number] [address] [place] [address], [place] [address] May, [facility] [address] [id number] [address] [place] [address], [place] [address] May, [facility] [address] [id number] [address] [place] [address], [place] [address] May, [facility] [address] [id number] [address] [place] [address], [place] [address] May, [facility] [address] [id number] [address] [place] [address], [place] [address] Apr, [facility] [address] [id number] [address] [place] [address], [place] [address] Apr, [facility] [address] [id number] [address] [place] [address], [place] [address] Apr, [facility] [address] [id number] [address] [place] [address], [place] [address] Apr, [facility] [address] [id number] [address] [place] [address], [place] [address] Apr, [facility] [address] [id number] [address] [place] [address], [place] [address] Apr, [facility] [address] [id number] [address] [place] [address], [place] [address] Feb, [facility] [address] [id number] [address] [place] [address], [place] [address] Feb, [facility] [address] [id number] [address] [place] [address], [place] [address] Feb, [facility] [address] [id number] [address] [place] [address], [place] [address] Feb, [facility] [address] [id number] [address] [place] [address], [place] [address] Jan, [facility] [address] [id number] [address] [place] [address], [place] [address] Jan, [facility] [address] [id number] [address] [place] [address], [place] [address] Dec, [facility] [address] [id number] [address] [place] [id number] Dec, [facility] [address] [id number] [address] [place] [address], [place] [address] Dec, [facility] [address] [id number] [address] [place] [id number] Dec, [facility] [address] [id number] [address] [place] [id number] Oct, [facility] [address] [id number] [address] [place] [id number] Oct, [facility] [address] [id number] [address] [place] [id number] Oct, [facility] [address] [id number] [address] [place] [id number] Oct, [facility] [address] [id number] [address] [place] [id number] Sep, [facility] [address] [id number] [address] [place] [address] [place] [address] Sep, [facility] [address] [id number] [address] [place] [address], [place] [address] Aug, [facility] [address] [id number] [address] [place] [address], [place] [address] Aug, [facility] [address] [id number] [address] [place] [address], [place] [address] Aug, [facility] [address] [id number] [address] [place] [address], [place] [address] Aug, [facility] [address] [id number] [address] [place] [address], [place] [address] July, [facility] [address] [id number] [address] [place] [address], [place] [address] Jun, [facility] [address] [id number] [address] [place] [address], [place] [address] May, [facility] [address] [id number] [address] [place] [address], [place] [address] May, [facility] [address] [id number] [address] [place] [address], [place] [address] May, [facility] [address] [id number] [address] [place] [address], [place] [address] May, [facility] [address] [id number] [address] [place] [address], [place] [address] May, [facility] [address] [id number] [address] [place] [address], [place] [address] Apr, [facility] [address] [id number] [address] [place] [address], [place] [address] Apr, [facility] [address] [id number] [address] [place] [address], [place] [address] Apr, [facility] [address] [id number] [address] [place] [address], [place] [address] Apr, [facility] [address] [id number] [address] [place] [address], [place] [address] Mar, [facility] [address] [id number] [address] [place] [address], [place] [address] Mar, [facility] [address] [id number] [address] [place] [address], [place] [address] Mar, [facility] [address] [id number] [address] [place] [address], [place] [address] Mar, [facility] [address] [id number] [address] [place] [address], [place] [address] Jan, [facility] [address] [id number] [address] [place] [address], [place] [address] Jan, [facility] [address] [id number] [address] [place] [address], [place] [address] Jan, [facility] [address] [id number] [address] [place] [address], [place] [address] Jan, [facility] [address] [id number] [address] [place] [address], [place] [address] Jan, [facility] [address] [id number] [address] [place] [address], [place] [address] Jan, [facility] [address] [id number] [address] [place] [address], [place] [address] Jan, [facility] [address] [id number] [address] [place] [id number] Jan, [facility] [address] [id number] [address] [place] [address], [place] [address] Jan, [facility] [address] [id number] [address] [place] [address], [place] [address] Jan, [facility] [address] [id number] [address] [place] [address], [place] [address] Dec, [facility] [address] [id number] [address] [place] [id number] Dec, [facility] [address] [id number] [address] [place] [id number] Dec, [facility] [address] [id number] [address] [place] [id number] Nov, [facility] [address] [id number] [address] [place] [id number] Nov, [facility] [address] [id number] [address] [place] [id number] Nov, [facility] [address] [id number] [address] [place] [id number] Nov, [facility] [address] [id number] [address] [place] [id number] Oct, [facility] [address] [id number] [address] [place] [id number] Oct, IMMUNIZATIONS No Known Immunizations SOCIAL HISTORY [...] egd 01/2019 Hospitalization History surgeries Hospitalization [facility]/2018 Hospitalization History [facility]- 07/2018 [facility] - heart attack and [facility]hab -03/02/2019
--- OUTSIDE RECORDS SUMMARY | 2019-08-21 20:56 | XMS REPORT ---
Author Author Sarah AMADO Organization [facility] Address [address] [place] [address] Care Team Providers Care Presser [employer] Name Role Phone GEE AMADO Unavailable PROBLEMS Type Condition ICD9-CM Code QIT34-DV Code Onset Dates Condition S tatus SNOMED Code Problem Coronary artery disease invo lving [place] coronary artery of [place] heart without angina pectoris I25.10 Active 1641 [id number] Problem Hyperlipidemia, unspecified hyperlipidemia type E7 8.5 Active 44284009 Problem Paresthesias in right hand R20.2 Act chidi 035526930 Problem Neck pain M54.2 Active 17014074 Problem GERD (gastroesophageal reflux disease) K21.9 Active 267345812 Problem Essential hypertension I10 Active 50275578 Problem Chronic kidney disease, unspecified CKD stage N18. 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 [address] [facility] [id number] [address] [place] [phone] 14 Jul, 2019 Anemia due to acute blood lo ss D62 and Essential hypertension I10 [facility] [address] [facility] [id number] [address] [place] [address] July, [facility] [address] [facility] [id number] [address] [place] [phone] July, [facility] [address] [facility] [id number] [address] [place] [address] July, [address] [id number] [place] [address] July, [address] [id number] [place] [address] Jun, [address] [id number] [address] Jun, Chronic diastolic (congestiv e) heart failure I50.32 ; COPD (chronic obstructive pulmonary disease) J44.9 ; Dyspnea R06.00 and Weakness R53.[address] [place] [address] Jun, [facility] [address] [facility] [id number] [address] [place] [address] Jun, [facility] [address] [facility] [id number] [address] [place] [address] Jun, [facility] [address] [facility] [id number] [address] [place] [address] May, 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 [address] [facility] [id number] [address] [place] [address] 16 May, 2019 [facility] [address] [facility] [id number] [address] [place] [address] 12 May, 2019 Type 2 diabetes mellitus wit h other specified complication E11.69 ; Other cirrhosis of liver K74.69 ; Chronic kidney disease, stage 3 (moderate) N18.3 ; Chronic diastolic (congestive) heart failure I50.32 ; Paroxysmal atrial fibrillation I48.0 ; Morbid (severe) obesity due to excess calories E66.01 and Hyperlipidemia, unspecified hyperlipidemia type E78.5 [facility] [address] [id number] [address] [place] [address] May, [address] [id number], [place] [address] Apr, [facility] [address] [id number] [address] [place] [address] Mar, [facility] [address] [id number] [address] [place] [address] Mar, [facility] [address] [id number] [address] [place] [address] Mar, [facility] [address] [id number] [address] [place] [address] Mar, [facility] [address] [facility] [id number] [address] [place] [address] Mar, [address] [id number], [place] [address] Mar, [address] 340[address] [id number], [place] [address] Mar, [facility] [address] [id number] [address] [place] [address] Mar, [facility] [address] [id number] [address] [place] [address] Mar, [facility] [address] [id number] [address] [place] [address] Mar, [facility] [address] [facility] [id number] [address] [place] [address] Feb, [facility] [address] [id number] [address] [place] [address] Feb, Coronary artery disease invo lving [place] coronary artery of [place] heart without angina pectoris I25.10 ; Chronic kidney disease, stage 3 (moderate) N18.3 and Morbid (severe) obesity due to excess calories E66.01 [facility] [address] [id number] [address] [place] [phone] Feb, [facility] [address] [id number] [address] [place] [address] Feb, [facility] [address] [id number] [address] [place] [phone] Feb, [facility] [address] [id number] [address] [place] [address] Jan, [facility] [address] [id number] [address] [place] [address] Jan, [facility] [address] [id number] [address] [place] [address] Jan, [facility] [address] [id number] [address] [place] [address] Jan, [facility] [address] [id number] [address] [place] [address] Jan, [facility] [address] [id number] [address] [place] [address] Jan, [facility] [address] [id number] [address] [place] [address] Dec, [facility] [id number] [place] [address] Dec, [facility] [address] [id number] [address] [place] [address] Nov, [facility] [address] [id number] [address] [place] [phone] Nov, [facility] [address] [id number] [address] [place] [phone] Nov, [facility] [address] [id number] [address] [place] [address] Nov, [address] 340[address] [id number] [place] [address] Oct, [facility] [address] [facility] [id number] [address] [place] [address] Oct, [address] [id number], [place] [address] Sep, [facility] [address] [facility] [id number] [address] [place] [address] Sep, [facility] [address] [facility] [id number] [address] [place] [address] Aug, Type 2 diabetes mellitus wit h unspecified complications E11.8 ; care home 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 and Obesity (BMI 30-39.9) E66.[address] [id number], [place] [address] Aug, Type 2 diabetes mellitus wit hout complications E11.[address] 340[address] [id number], [place] [address] Aug, Type 2 diabetes mellitus wit hout complications E11.9 [facility] [address] [facility] [id number] [address] [place] [address] Aug, [facility] [address] [id number], [place] [address] July, terminal worker 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 ins ulin Z79.4 and Type 2 diabetes mellitus with unspecified complications E11.[address] 340[address] [id number], [place] [address] July, Screening mammogram, encount er for Z12.31 [facility] [address] [facility] [id number] [address] [place] [address] July, [facility] [address] [facility] [id number] [address] [place] [address] July, Paroxysmal atrial fibrillati on I48.0 and Coronary artery disease involving [place] coronary artery of [place] heart without angina pectoris I25.10 [facility] [address] [facility] [id number] [address] [place] [address] Jun, [facility] [address] [facility] [id number] [address] [place] [address] Jun, [facility] [address] [place] [id number] [place] [address] May, 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 [address] [place] [id number] [address] [place] [address] Apr, [facility] [address] [address] Mar, Type 2 diabetes mellitus wit hout complications E11.9 [place] [address] [place] [id number] [address] [place] [address] Mar, Type 2 diabetes mellitus wit hout complications E11.9 [place] [address] [place] [id number] [address] [place] [address] Mar, Type 2 diabetes mellitus wit hout complications E11.9 [place] [address] [facility] [id number] [address] [place] [address] Feb, Essential (primary) hyperten sofie I10 [facility] [address] [facility] [id number] [address] [place] [address] Feb, [facility] [address] [place] [id number] [address] [place] [address] Jan, Type 2 diabetes mellitus wit hout complications E11.9 [facility] [address] [id number] [address] [place] [address] 30 Dec, 2017 [facility] [address] [id number] [address] [place] [address] Dec, Type 2 diabetes mellitus wit h diabetic neuropathy, unspecified E11.40 ; care home 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 and Chronic kidney disease, unspecified CKD stage N18.9 [facility] [address] [id number] [address] [place] [address] 15 Dec, 2017 Type 2 diabetes mellitus wit hout complications E11.9 [facility] [address] [id number] [address] [place] [address] Dec, [facility] [address] [facility] [id number] [address] [place] [address] 09 Dec, 2017 Type 2 diabetes mellitus wit hout complications E11.9 [facility] [address] [id number] [address] [place] [address] Dec, [facility] [address] [id number] [address] [place] [address] Oct, [facility] [address] [id number] [address] [place] [phone] Sep, [facility] [address] [id number] [address] [place] [address] Aug, [facility] [address] [facility] [id number] [address] [place] [phone] Aug, Exposure to hepatitis C Z20. 5 and Routine adult health maintenance Z00.00 [facility] [address] [facility] [id number] [address] [place] [phone] Aug, Exposure to hepatitis C Z20. 5 [facility] [address] [facility] [id number] [address] [place] [address] 11 Aug, 2017 Medicare annual wellness vis it, initial Z00.00 ; Coronary artery disease involving [place] coronary artery of [place] heart without angina pectoris I25.10 ; Hyperlipidemia, unspecified hyperlipidemia type E78.5 ; Essential hypertension I10 ; GERD (gastroesophageal reflux disease) K21.9 ; Routine adult health maintenance Z00.00 ; Encounter for immunization Z23 ; Type 2 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, unspecified E11.40 and care home 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 [facility] [address] [facility] [id number] [address] [place] [address] 30 Jul, 2017 Type 2 diabetes mellitus wit hout complications E11.9 and Type 2 diabetes mellitus without complications E11.9 [facility] [address] [id number] [address] [place] [address] July, [facility] [address] [facility] [id number] [address] [place] [address] July, [facility] [address] [facility] [id number] [address] [place] [address] Mar, Type 2 diabetes mellitus wit hout complications E11.9 [facility] [address] [facility] [id number] [address] [place] [address] Mar, [facility] [address] [facility] [id number] [address] [place] [address] Feb, Type 2 diabetes mellitus wit hout complications E11.9 [facility] [address] [facility] [id number] [address] [place] [address] Jan, Type 2 diabetes mellitus wit hout complications E11.9 [facility] [address] [facility] [id number] [address] [place] [address] Jan, Type 2 diabetes mellitus wit hout complications E11.9 [facility] [address] [facility] [id number] [address] [place] [address] Nov, [facility] [address] [facility] [id number] [address] [place] [address] Oct, Type 2 diabetes mellitus wit hout complications E11.9 [facility] [address] [facility] [id number] [address] [place] [address] Oct, Type 2 diabetes mellitus wit hout complications E11.9 ; Essential hypertension I10 and Neck pain M54.2 [facility] [address] [facility] [id number] [address] [place] [phone] Sep, [facility] [address] [facility] [id number] [address] [place] [address] Aug, Type 2 diabetes mellitus wit hout complications E11.9 [facility] [address] [facility] [id number] [address] [place] [address] Jun, Type 2 diabetes mellitus wit hout complications E11.9 ; Neck pain M54.2 and Essential hypertension I10 [facility] [address] [facility] [id number] [address] [place] [address] Jun, [facility] [address] [facility] [id number] [address] [place] [phone] Jun, [facility] [address] [facility] [id number] [address] [place] [address] Jun, GERD (gastroesophageal reflu x disease) K21.9 and Type 2 diabetes mellitus without complications E11.9 [facility] [address] [facility] [id number] [address] [place] [address] Mar, Paresthesias in right hand R 20.2 [facility] [address] [facility] [id number] [address] [place] [address] Feb, Type 2 diabetes mellitus wit hout complications E11.9 [facility] [address] [id number] [address] [place] [id number] Feb, Encounter for dental examina tion Z01.20 [facility] [address] [facility] [id number] [address] [place] [address] Feb, Type 2 diabetes mellitus wit hout complications E11.[address] M54.2 [facility] [address] [facility] [id number] [address] [place] [address] Feb, Type 2 diabetes mellitus wit hout complications E11.9 [facility] [address] [id number] [address] [place] [id number] Jan, Dental examination Z01.20 [facility] [address] [id number] [address] [place] [address] Jan, [facility] [address] [id number] [address] [place] [address] Jan, [facility] [address] [id number] [address] [place] [address] [id number] Dec, Dental caries K02.9 [facility] [address] [id number] [address] [place] [address] Nov, [facility] [address] [id number] [address] [place] [address] Nov, [facility] [address] [id number] [address] [place] [address] Oct, Type 2 diabetes mellitus wit hout complications E11.9 ; Neck pain M54.2 and Essential hypertension I10 [facility] [address] [id number] [address] [place] [address] Oct, [facility] [address] [id number] [address] [place] [address] [id number] Oct, Dental examination Z01.20 [facility] [address] [id number] [address] [place] [phone] Sep, [facility] [address] [id number] [address] [place] [address] Sep, [facility] [address] [id number] [address] [place] [address] Aug, Essential (primary) hyperten sofie I10 [facility] [address] [id number] [address] [place] [phone] Aug, [facility] [address] [id number] [address] [place] [phone] Aug, [facility] [address] [facility] [id number] [address] [place] [address] July, Essential (primary) hyperten sofie I10 [facility] [address] [facility] [id number] [address] [place] [address] July, Essential (primary) hyperten sofie I10 and Type 2 diabetes mellitus without complications E11.9 [facility] [address] [facility] [id number] [address] [place] [address] July, [facility] [address] [place] [id number] [address] [place] [address] Jun, GERD (gastroesophageal reflu x disease) K21.9 [facility] [address] [place] [id number] [address] [place] [address] Jun, GERD (gastroesophageal reflu x disease) K21.9 [facility] [id number] [place] [address] Jun, [facility] [address] [place] [id number] [address] [place] [address] Jun, Neuropathy G62.9 [facility] [address] [place] [id number] [address] [place] [phone] May, Essential (primary) hyperten sofie I10 [facility] [address] [facility] [id number] [address] [place] [address] May, Bronchitis J40 [facility] [address] [facility] [id number] [address] [place] [address] 15 May, 2015 Type 2 diabetes mellitus wit hout complications E11.9 and Essential (primary) hypertension I10 [facility] [address] [facility] [id number] [address] [place] [address] May, [facility] [address] [facility] [id number] [address] [place] [phone] May, GERD (gastroesophageal reflu x disease) K21.9 [facility] [address] [facility] [id number] [address] [place] [address] Apr, Other and unspecified hyperl ipidemia 272.4 ; Unspecified essential hypertension 401.9 ; Type 2 diabetes mellitus without complications E11.9 ; Neck pain M54.2 and Paresthesias in right hand R20.2 [facility] [address] [id number] [address] [place] [address] Apr, [facility] [address] [id number] [address] [place] [address] Apr, Neuropathy G62.9 [facility] [address] [id number] [address] [place] [address] Mar, [facility] [address] [facility] [id number] [address] [place] [address] Feb, [facility] [address] [facility] [id number] [address] [place] [phone] Jan, [facility] [address] [facility] [id number] [address] [place] [address] Dec, [facility] [address] [facility] [id number] [address] [place] [phone] Dec, Type 2 diabetes mellitus wit hout complications E11.9 ; Encounter for immunization Z23 and Neck pain M54.2 [facility] [address] [id number] [address] [place] [phone] Dec, [facility] [address] [id number] [address] [place] [address] Nov, [facility] [address] [id number] [address] [place] [phone] Nov, [facility] [address] [facility] [id number] [address] [place] [address] Oct, [facility] [address] [id number] [address] [place] [phone] Oct, [facility] [address] [facility] [id number] [address] [place] [address] Sep, [facility] [address] [id number] [address] [place] [address] Sep, Coronary atherosclerosis of unspecified type of vessel, [place] or graft 414.00 ; Diabetes mellitus without mention of complication, type II or unspecified type, not stated as uncontrolled 250.00 ; Hyperlipidemia 272.4 and HTN (hypertension) 401.9 [facility] [address] [id number] [address] [place] [phone] Aug, [facility] [address] [id number] [address] [place] [phone] July, [facility] [address] [id number] [address] [place] [phone] Jun, [facility] [address] [id number] [address] [place] [phone] Jun, [facility] [address] [id number] [address] [place] [phone] May, [facility] [address] [id number] [address] [place] [phone] May, [facility] [address] [id number] [address] [place] [phone] May, [facility] [address] [facility] [id number] [address] [place] [phone] May, [facility] [address] [id number] [address] [place] [phone] Apr, [facility] [address] [id number] [address] [place] [phone] Apr, [facility] [address] [id number] [address] [place] [id number] Apr, [facility] [address] [id number] [address] [place] [id number] Apr, [facility] [address] [id number] [address] [place] [phone] Apr, [facility] [address] [id number] [address] [place] [address], [place] [id number] Apr, [facility] [address] [id number] [address] [place] [address], [place] [phone] Apr, [facility] [address] [id number] [address] [place] [address], [place] [phone] Apr, [facility] [address] [id number] [address] [place] [address], [place] [id number] Mar, [facility] [facility] [address] [id number] [address] [place] [address], [place] [address] Mar, [facility] [address] [id number] [address] [place] [address], [place] [address] Mar, [facility] [address] [id number] [address] [place] [address], [place] [address] Mar, [facility] [address] [id number] [address] [place] [address], [place] [address] Mar, [facility] [address] [id number] [address] [place] [address], [place] [address] Mar, [facility] [address] [id number] [address] [place] [address], [place] [address] Mar, [facility] [address] [id number] [address] [place] [address] Mar, [facility] [address] [id number] [address] [place] [address] Feb, [facility] [address] [id number] [address] [place] [address], [place] [address] Feb, [facility] [address] [id number] [address] [place] [address], [place] [address] Feb, [facility] [address] [id number] [address] [place] [address], [place] [address] Feb, [facility] [address] [id number] [address] [place] [address], [place] [address] Feb, [facility] [address] [id number] [address] [place] [address], [place] [address] Feb, [facility] [address] [id number] [address] [place] [address], [place] [address] Feb, [facility] [address] [id number] [address] [place] [address], [place] [address] Feb, [facility] [address] [id number] [address] [place] [address], [place] [address] Feb, [facility] [address] [id number] [address] [place] [address], [place] [address] Feb, [facility] [address] [id number] [address] [place] [address], [place] [address] Jan, [facility] [address] [id number] [address] [place] [address], [place] [address] Jan, [facility] [address] [id number] [address] [place] [address], [place] [address] Dec, [facility] [address] [id number] [address] [place] [address], [place] [address] Dec, [facility] [address] [id number] [address] [place] [address], [place] [address] Dec, [facility] [address] [id number] [address] [place] [address], [place] [address] Dec, [facility] [address] [id number] [address] [place] [address], [place] [address] 15 Nov, 2013 [facility] [address] [id number] [address] [place] [address], [place] [address] 15 Nov, 2013 [facility] [address] [id number] [address] [place] [address], [place] [address] Nov, [facility] [address] [id number] [address] [place] [address], [place] [address] Nov, [facility] [address] [id number] [facility] [address] Oct, [facility] [address] [id number] [address] [place] [address], [place] [address] Oct, [facility] [address] [id number] [address] [place] [address], [place] [address] Oct, [facility] [address] [id number] [address] [place] [address], [place] [address] Oct, [facility] [address] [id number] [address] [place] [address], [place] [address] Oct, [facility] [address] [id number] [address] [place] [address], [place] [address] Sep, [facility] [address] [id number] [address] [place] [address], [place] [address] Sep, [facility] [address] [id number] [address] [place] [address], [place] [address] Sep, [facility] [address] [id number] [address] [place] [address], [place] [address] Sep, [facility] [address] [id number] [address] [place] [address], [place] [address] Sep, [facility] [address] [id number] [address] [place] [address], [place] [address] Sep, [facility] [address] [id number] [address] [place] [address], [place] [address] Aug, [facility] [address] [id number] [address] [place] [address], [place] [address] Aug, [facility] [address] [id number] [address] [place] [address], [place] [address] Aug, [facility] [address] [id number] [address] [place] [address], [place] [address] Aug, [facility] [address] [id number] [facility] [address] Aug, [facility] [address] [id number] [address] [place] [address], [place] [address] Aug, [facility] [address] [id number] [address] [place] [address], [place] [address] July, [facility] [address] [id number] [address] [place] [address], [place] [address] July, [facility] [address] [id number] [address] [place] [address], [place] [address] Jun, [facility] [address] [id number] [address] [place] [address], [place] [address] Jun, [facility] [address] [id number] [address] [place] [address], [place] [address] May, [facility] [address] [id number] [address] [place] [address], [place] [address] May, [facility] [address] [id number] [address] [place] [address], [place] [address] May, [facility] [address] [id number] [address] [place] [address], [place] [address] May, [facility] [address] [id number] [address] [place] [address], [place] [address] Apr, [facility] [address] [id number] [address] [place] [address], [place] [address] Apr, [facility] [address] [id number] [address] [place] [address], [place] [address] Apr, [facility] [address] [id number] [address] [place] [address], [place] [address] Apr, [facility] [address] [id number] [address] [place] [address], [place] [address] Apr, [facility] [address] [id number] [address] [place] [address], [place] [address] Apr, [facility] [address] [id number] [address] [place] [address], [place] [address] Feb, [facility] [address] [id number] [address] [place] [address], [place] [address] Feb, [facility] [address] [id number] [address] [place] [address], [place] [address] Feb, [facility] [address] [id number] [address] [place] [address], [place] [address] Feb, [facility] [address] [id number] [address] [place] [address], [place] [address] Jan, [facility] [address] [id number] [address] [place] [address], [place] [address] Jan, [facility] [address] [id number] [address] [place] [address], [place] [address] Dec, [facility] [address] [id number] [address] [place] [address] Dec, [facility] [address] [id number] [address] [place] [address] Dec, [facility] [address] [id number] [address] [place] [address] Dec, [facility] [address] [id number] [address] [place] [address] Oct, [facility] [address] [id number] [address] [place] [id number] Oct, [facility] [address] [id number] [address] [place] [id number] Oct, [facility] [address] [id number] [address] [place] [address] Oct, [facility] [address] [id number] [address] [place] [address] Sep, [facility] [address] [id number] [address] [place] [address] Sep, [facility] [address] [id number] [address] [place] [address], [place] [address] Aug, [facility] [address] [id number] [address] [place] [address], [place] [address] Aug, [facility] [address] [id number] [address] [place] [address], [place] [address] Aug, [facility] [address] [id number] [address] [place] [address], [place] [address] Aug, [facility] [address] [id number] [address] [place] [address], [place] [address] July, [facility] [address] [id number] [address] [place] [address], [place] [address] Jun, [facility] [address] [id number] [address] [place] [address], [place] [address] May, [facility] [address] [id number] [address] [place] [address], [place] [address] May, [facility] [address] [id number] [address] [place] [address], [place] [address] May, [facility] [address] [id number] [address] [place] [address], [place] [address] May, [facility] [address] [id number] [address] [place] [address], [place] [address] May, [facility] [address] [id number] [address] [place] [address], [place] [address] Apr, [facility] [address] [id number] [address] [place] [address], [place] [address] Apr, [facility] [address] [id number] [address] [place] [address], [place] [address] Apr, [facility] [address] [id number] [address] [place] [address], [place] [address] Apr, [facility] [address] [id number] [address] [place] [address], [place] [address] Mar, [facility] [address] [id number] [address] [place] [address], [place] [address] Mar, [facility] [address] [id number] [address] [place] [address], [place] [address] Mar, [facility] [address] [id number] [address] [place] [address], [place] [address] Mar, [facility] [address] [id number] [address] [place] [address], [place] [address] Jan, [facility] [address] [id number] [address] [place] [address], [place] [address] Jan, [facility] [address] [id number] [address] [place] [address], [place] [address] Jan, [facility] [address] [id number] [address] [place] [address], [place] [address] Jan, [facility] [address] [id number] [address] [place] [address], [place] [address] Jan, [facility] [address] [id number] [address] [place] [address], [place] [address] Jan, [facility] [address] [id number] [address] [place] [address], [place] [address] Jan, [facility] [address] [id number] [address] [place] [address], [place] [address] Jan, [facility] [address] [id number] [address] [place] [address], [place] [address] Jan, [facility] [address] [id number] [address] [place] [address], [place] [address] Jan, [facility] [address] [id number] [address] [place] [address], [place] [address] Dec, [facility] [address] [id number] [address] [address] Dec, [facility] [address] [id number] [address] [place] [address] Dec, [facility] [address] [id number] [address] [place] [address] Nov, [facility] [address] [id number] [address] [place] [address] Nov, [facility] [address] [id number] [address] [place] [address] Nov, [facility] [address] [id number] [address] [place] [address] Nov, [facility] [address] [id number] [address] [place] [address] Oct, [facility] [address] [facility] [id number] [address] [place] [address] Oct, IMMUNIZATIONS No Known Immunizations SOCIAL HISTORY [...] egd 01/2019 Hospitalization History surgeries Hospitalization History horatio 06/2018 Hospitalization History [facility]- 07/2018 Hospitalization History [facility] [place] - heart attack and rehab -03/02/2019
--- OUTSIDE RECORDS SUMMARY | 2019-08-21 20:57 | XMS REPORT ---
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 Name Role Phone LALITO TERRAZAS Unavailable PROBLEMS Type Condition ICD9-CM Code XFQ60-ZQ Code Onset Dates Condition S tatus SNOMED Code Problem Coronary artery disease invo lving [place] coronary artery of [place] heart without angina pectoris I25.10 Active 1641 [id number] Problem Hyperlipidemia, unspecified hyperlipidemia type E7 8.5 Active 58090128 Problem Paresthesias in right hand R20.2 Act chidi 252376130 Problem Neck pain M54.2 Active 91314996 Problem GERD (gastroesophageal reflux disease) K21.9 Active 712956994 Problem Essential hypertension I10 Active 43827472 Problem Chronic kidney disease, unspecified CKD stage N18. 9 Active 657180661 Problem Paroxysmal atrial fibrillation I48.0 Active 778649449 Problem Obesity (BMI 30-39.9) E66.9 Active 892491318 Problem Type 2 diabetes mellitus with other specified complication E11.69 Active 80486290 Problem Type 2 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, uns pecified E11.40 Active 54324888 Problem COPD (chronic obstructive pulmonary disease) J44.9 Active 43373456 Problem manager terminal 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 Active 522626951 Problem Morbid (severe) obesity due to excess calories E66 .01 Active 033331657 Problem Chronic kidney disease, stage 3 (moderate) N18.3 Active 058121894 Problem Other cirrhosis of liver K74.69 Activ e 30503111 Problem Chronic diastolic (congestive) heart failure I50.3 2 Active [id number] ALLERGIES No Information ENCOUNTERS Encounter Location Date Diagnosis [address] [id number] [address] Jun, [address] [id number], [place] [address] Jun, Chronic diastolic (congestiv e) heart failure I50.32 ; COPD (chronic obstructive pulmonary disease) J44.9 ; Dyspnea R06.00 and Weakness R53.[address] [place] [address] Jun, [facility] [address] [facility] [id number] [address] [place] [address] Jun, [facility] [address] [facility] [id number] [address] [place] [address] Jun, [facility] [address] [facility] [id number] [address] [place] [address] May, [place] [address] [facility] [id number] [address] [place] [address] May, Other cirrhosis of liver K74 .69 and Type 2 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, unspecified whether manager terminal insulin use E11.40 [facility] [address] [facility] [id number] [address] [place] [address] 16 May, 2019 [facility] [address] [facility] [id number] [address] [place] [address] May, Type 2 diabetes mellitus wit h other specified complication E11.69 ; Other cirrhosis of liver K74.69 ; Chronic kidney disease, stage 3 (moderate) N18.3 ; Chronic diastolic (congestive) heart failure I50.32 ; Paroxysmal atrial fibrillation I48.0 ; Morbid (severe) obesity due to excess calories E66.01 and Hyperlipidemia, unspecified hyperlipidemia type E78.5 [facility] [address] [facility] [id number] [address] [place] [address] May, [address] [id number] [place] [address] Apr, [facility] [address] [facility] [id number] [address] [place] [address] Mar, [place] [address] [address] [facility] [id number] [address] [place] [address] Mar, [facility] [address] [id number] [address] [place] [phone] Mar, [facility] [address] [id number] [address] [place] [phone] Mar, [facility] [address] [id number] [address] [place] [address] Mar, [address] [id number], [place] [address] Mar, [address] [id number], [place] [address] Mar, [facility] [address] [id number] [address] [place] [address] Mar, [facility] [address] [id number] [address] [place] [address] Mar, [facility] [address] [id number] [address] [place] [phone] Mar, [facility] [address] [id number] [address] [place] [address] Feb, [facility] [address] [id number] [address] [place] [address] Feb, Coronary artery disease invo lving [place] coronary artery of [place] heart without angina pectoris I25.10 ; Chronic kidney disease, stage 3 (moderate) N18.3 and Morbid (severe) obesity due to excess calories E66.01 [facility] [address] [id number] [address] [place] [address] Feb, [facility] [address] [id number] [address] [place] [address] Feb, [facility] [address] [id number] [address] [place] [address] Feb, [facility] [address] [id number] [address] [place] [phone] Jan, [facility] [address] [id number] [address] [place] [address], [place] [address] Jan, [facility] [address] [id number] [address] [place] [address], [place] [address] Jan, [facility] [address] [id number] [address] [place] [address], [place] [address] Jan, [facility] [address] [id number] [address] [place] [address], [place] [address] Jan, [facility] [address] [id number] [address] [place] [address], [place] [address] Jan, [facility] [address] [id number] [address] [place] [address], [place] [address] Dec, [facility] [address] [id number] [place] [address] Dec, [facility] [address] [id number] [address] [place] [address], [place] [address] Nov, [facility] [address] [id number] [address] [place] [address], [place] [address] Nov, [facility] [address] [id number] [address] [place] [address], [place] [address] Nov, [facility] [address] [id number] [address] [place] [address], [place] [address] Nov, [facility] [address] [place] [address] 340[address] [id number], [place] [address] Oct, [facility] [address] [id number] [address] [place] [address], [place] [address] Oct, [facility] [address] [place] [address] 340[address] [id number] [place] [address] Sep, [facility] [address] [id number] [address] [place] [address] Sep, [facility] [address] [id number] [address] [place] [address] 14 Aug, 2018 Type 2 diabetes mellitus wit h unspecified complications E11.8 ; manager terminal 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 and Obesity (BMI 30-39.9) E66.[address] [id number], [place] [address] 10 Aug, 2018 Type 2 diabetes mellitus wit hout complications E11.[address] 340 [id number], [place] [address] 07 Aug, 2018 Type 2 diabetes mellitus wit hout complications E11.9 [place] [address] [facility] [id number] [address] [place] [address] Aug, [address] 340 [id number], [place] [address] July, manager terminal 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 ins ulin Z79.4 and Type 2 diabetes mellitus with unspecified complications E11.[address] [id number], [place] [address] July, Screening mammogram, encount er for Z12.31 [place] [address] [id number] [address] [place] [address] July, [place] [address] [id number] [address] [place] [address] July, Paroxysmal atrial fibrillati on I48.0 and Coronary artery disease involving [place] coronary artery of [place] heart without angina pectoris I25.10 [facility] [address] [id number] [address] [place] [address] Jun, [facility] [address] [id number] [address] [place] [address] Jun, [facility] [address] [id number] [address] [place] [address] May, [facility] [address] [id number] [address] [place] [address] May, Type 2 diabetes mellitus wit h unspecified complications E11.8 ; manager terminal 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 ; Leg cramps R25.2 ; Essential hypertension I10 and Routine adult health maintenance Z00.00 [facility] [address] [id number] [address] [place] [address] 07 Apr, 2018 [facility] [address] [id number] [address] [place] [address] Apr, [facility] [address] [id number] [address] [place] [address] Mar, Type 2 diabetes mellitus wit hout complications E11.9 [facility] [address] [id number] [address] [place] [address] Mar, Type 2 diabetes mellitus wit hout complications E11.9 [facility] [address] [id number] [address] [place] [address] Mar, Type 2 diabetes mellitus wit hout complications E11.9 [facility] [address] [facility] [id number] [address] [place] [address] Feb, Essential (primary) hyperten sofie I10 [facility] [address] [id number] [address] [place] [address] Feb, [facility] [address] [facility] [id number] [address] [place] [address] Jan, Type 2 diabetes mellitus wit hout complications E11.9 [facility] [address] [facility] [id number] [address] [place] [address] Dec, [facility] [address] [id number] [address] [place] [address] Dec, Type 2 diabetes mellitus wit h diabetic neuropathy, unspecified E11.40 ; custodial 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 and Chronic kidney disease, unspecified CKD stage N18.9 [facility] [address] [id number] [address] [place] [address] Dec, Type 2 diabetes mellitus wit hout complications E11.9 [facility] [address] [id number] [address] [place] [address] 10 Dec, 2017 [facility] [address] [facility] [id number] [address] [place] [id number] 09 Dec, 2017 Type 2 diabetes mellitus wit hout complications E11.9 [facility] [address] [facility] [id number] [address] [place] [address] Dec, [facility] [address] [place] [id number] [place] [address] Oct, [facility] [address] [facility] [id number] [address] [place] [address] Sep, [facility] [address] [place] [id number] [place] [address] Aug, [facility] [address] [place] [id number] [address] [place] [address] Aug, Exposure to hepatitis C Z20. 5 and Routine adult health maintenance Z00.00 [facility] [address] [place] [id number] [address] [place] [address] Aug, Exposure to hepatitis C Z20. 5 [facility] [address] [address] Aug, Medicare annual wellness vis it, initial Z00.00 ; Coronary artery disease involving [place] coronary artery of [place] heart without angina pectoris I25.10 ; Hyperlipidemia, unspecified hyperlipidemia type E78.5 ; Essential hypertension I10 ; GERD (gastroesophageal reflux disease) K21.9 ; Routine adult health maintenance Z00.00 ; Encounter for immunization Z23 ; Type 2 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, unspecified E11.40 and custodial 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 [facility] [address] [place] [id number] [address] [place] [address] July, Type 2 diabetes mellitus wit hout complications E11.9 and Type 2 diabetes mellitus without complications E11.9 [facility] [address] [place] [id number] [address] [place] [address] July, [facility] [address] [id number] [address] [place] [address] July, [facility] [address] [id number] [address] [place] [address] Mar, Type 2 diabetes mellitus wit hout complications E11.9 [facility] [address] [facility] [id number] [address] [place] [address] Mar, [facility] [address] [id number] [address] [place] [address] Feb, Type 2 diabetes mellitus wit hout complications E11.9 [facility] [address] [id number] [address] [place] [id number] Jan, Type 2 diabetes mellitus wit hout complications E11.9 [facility] [address] [facility] [id number] [address] [place] [address] Jan, Type 2 diabetes mellitus wit hout complications E11.9 [facility] [address] [facility] [id number] [address] [place] [id number] Nov, [facility] [address] [id number] [address] [place] [address] Oct, Type 2 diabetes mellitus wit hout complications E11.9 [facility] [address] [facility] [id number] [address] [place] [address] Oct, Type 2 diabetes mellitus wit hout complications E11.9 ; Essential hypertension I10 and Neck pain M54.2 [facility] [address] [id number] [address] [place] [address] Sep, [facility] [address] [id number] [address] [place] [address] Aug, Type 2 diabetes mellitus wit hout complications E11.9 [facility] [address] [id number] [address] [place] [address] Jun, Type 2 diabetes mellitus wit hout complications E11.9 ; Neck pain M54.2 and Essential hypertension I10 [facility] [address] [id number] [address] [place] [id number] 17 Jun, 2016 [facility] [address] [id number] [address] [place] [id number] 14 Jun, 2016 [facility] [address] [facility] [id number] [address] [place] [address] 10 Jun, 2016 GERD (gastroesophageal reflu x disease) K21.9 and Type 2 diabetes mellitus without complications E11.9 [facility] [address] [id number] [address] [place] [address] 10 Mar, 2016 Paresthesias in right hand R 20.2 [facility] [address] [facility] [id number] [address] [place] [address] Feb, Type 2 diabetes mellitus wit hout complications E11.9 [facility] [id number] [place] [id number] Feb, Encounter for dental examina tion Z01.20 [facility] [address] [id number] [address] [place] [address] Feb, Type 2 diabetes mellitus wit hout complications E11.9 and Neck pain M54.2 [facility] [address] [id number] [address] [place] [address] 02 Feb, 2016 Type 2 diabetes mellitus wit hout complications E11.9 [facility] [address] [id number] [address] [place] [id number] Jan, Dental examination Z01.20 [facility] [address] [id number] [address] [place] [address] Jan, [facility] [address] [id number] [address] [place] [address] Jan, [facility] [address] [id number] [address] [place] [id number] Dec, Dental caries K02.9 [facility] [address] [facility] [id number] [address] [place] [id number] 30 Nov, 2015 [place] [address] [id number] [address] [place] [address] Nov, [facility] [address] [facility] [id number] [address] [place] [address] Oct, Type 2 diabetes mellitus wit hout complications E11.9 ; Neck pain M54.2 and Essential hypertension I10 [facility] [address] [facility] [id number] [address] [place] [address] Oct, [facility] [address] [id number] [address] [place] [id number] Oct, Dental examination Z01.20 [facility] [address] [facility] [id number] [address] [place] [phone] Sep, [facility] [address] [facility] [id number] [address] [place] [address] Sep, [facility] [address] [facility] [id number] [address] [place] [phone] Aug, Essential (primary) hyperten sofie I10 [facility] [address] [id number] [address] [place] [address] Aug, [facility] [address] [facility] [id number] [address] [place] [phone] Aug, [facility] [address] [facility] [id number] [address] [place] [id number] July, Essential (primary) hyperten sofie I10 [facility] [address] [id number] [address] [place] [address] July, Essential (primary) hyperten sofie I10 and Type 2 diabetes mellitus without complications E11.9 [facility] [address] [id number] [address] [place] [address] July, [facility] [address] [facility] [id number] [address] [place] [address] Jun, GERD (gastroesophageal reflu x disease) K21.9 [facility] [address] [facility] [id number] [address] [place] [phone] 11 Jun, 2015 GERD (gastroesophageal reflu x disease) K21.9 [facility] [address] [facility] [id number] [address] [place] [address] Jun, [facility] [address] [place] [id number] [address] [place] [address] Jun, Neuropathy G62.9 [facility] [address] [address] May, Essential (primary) hyperten sofie I10 [facility] [address] [facility] [id number] [place] [address] May, Bronchitis J40 [facility] [address] [place] [id number] [place] [address] May, Type 2 diabetes mellitus wit hout complications E11.9 and Essential (primary) hypertension I10 [facility] [address] [address] May, [facility] [address] [address] May, GERD (gastroesophageal reflu x disease) K21.9 [facility] [address] [address] Apr, Other and unspecified hyperl ipidemia 272.4 ; Unspecified essential hypertension 401.9 ; Type 2 diabetes mellitus without complications E11.9 ; Neck pain M54.2 and Paresthesias in right hand R20.2 [facility] [address] [facility] [id number] [address] [place] [address] Apr, [facility] [address] [address] Apr, Neuropathy G62.9 [facility] [address] [place] [id number] [address] [place] [id number] Mar, [facility] [address] [facility] [id number] [address] [place] [address] Feb, [facility] [address] [facility] [id number] [address] [place] [id number] Jan, [facility] [address] [facility] [id number] [address] [place] [id number] Dec, [facility] [address] [facility] [id number] [address] [place] [id number] Dec, Type 2 diabetes mellitus wit hout complications E11.9 ; Encounter for immunization Z23 and Neck pain M54.2 [facility] [address] [facility] [id number] [address] [place] [id number] Dec, [facility] [address] [facility] [id number] [address] [place] [address] Nov, [facility] [address] [place] [id number] [address] [place] [id number] Nov, [facility] [address] [facility] [id number] [address] [place] [id number] Oct, [facility] [address] [place] [id number] [address] [place] [phone] Oct, [facility] [address] [place] [id number] [address] [place] [id number] Sep, [facility] [address] [place] [id number] [address] [place] [address] Sep, Coronary atherosclerosis of unspecified type of vessel, [place] or graft 414.00 ; Diabetes mellitus without mention of complication, type II or unspecified type, not stated as uncontrolled 250.00 ; Hyperlipidemia 272.4 and HTN (hypertension) 401.9 [facility] [address] [facility] [id number] [address] [place] [id number] Aug, [facility] [address] [id number] [address] [place] [id number] July, [facility] [address] [id number] [address] [place] [address] [place] [address] 14 Jun, 2014 [facility] [address] [id number] [address] [place] [address], [place] [address] 13 Jun, 2014 [facility] [address] [id number] [address] [place] [address], [place] [address] May, [facility] [address] [id number] [address] [place] [address], [place] [address] May, [facility] [address] [id number] [address] [place] [address], [place] [address] May, [facility] [address] [id number] [address] [place] [address], [place] [address] May, [facility] [address] [id number] [address] [place] [address], [place] [address] Apr, [facility] [address] [id number] [address] [place] [address], [place] [address] Apr, [facility] [address] [id number] [address] [place] [address], [place] [address] Apr, [facility] [address] [id number] [address] [place] [address], [place] [address] Apr, [facility] [address] [id number] [address] [place] [address], [place] [address] Apr, [facility] [address] [id number] [address] [place] [address], [place] [address] Apr, [facility] [address] [id number] [address] [place] [address], [place] [address] Apr, [facility] [address] [id number] [address] [place] [address], [place] [address] Apr, [facility] [address] [id number] [address] [place] [address], [place] [address] Mar, [facility] [address] [id number] [address] [place] [address], [place] [address] Mar, [facility] [address] [id number] [address] [place] [address], [place] [address] Mar, [facility] [address] [id number] [address] [place] [address], [place] [address] Mar, [facility] [address] [id number] [address] [place] [address], [place] [id number] Mar, [facility] [address] [id number] [address] [place] [address], [place] [address] Mar, [facility] [address] [id number] [address] [place] [address], [place] [address] Mar, [facility] [address] [id number] [address] [place] [address], [place] [address] Mar, [facility] [address] [id number] [address] [place] [address], [place] [address] Feb, [facility] [address] [id number] [address] [place] [address], [place] [address] Feb, [facility] [address] [id number] [address] [place] [address], [place] [address] Feb, [facility] [address] [id number] [address] [place] [address], [place] [address] Feb, [facility] [address] [id number] [address] [place] [address], [place] [address] Feb, [facility] [address] [id number] [address] [place] [address], [place] [address] Feb, [facility] [address] [id number] [address] [place] [address], [place] [address] Feb, [facility] [address] [id number] [address] [place] [address], [place] [address] Feb, [facility] [address] [id number] [address] [place] [address], [place] [address] Feb, [facility] [address] [id number] [address] [place] [address], [place] [address] Feb, [facility] [address] [id number] [address] [place] [address], [place] [address] Jan, [facility] [address] [id number] [address] [place] [address], [place] [address] Jan, [facility] [address] [id number] [address] [place] [address], [place] [address] Dec, [facility] [address] [id number] [address] [place] [address], [place] [address] Dec, [facility] [address] [id number] [address] [place] [address], [place] [address] Dec, [facility] [address] [id number] [address] [place] [address], [place] [address] Dec, [facility] [address] [id number] [address] [place] [address], [place] [address] Nov, [facility] [address] [id number] [address] [place] [address], [place] [address] Nov, [facility] [address] [id number] [address] [place] [address], [place] [address] Nov, [facility] [address] [id number] [address] [place] [address], [place] [address] Nov, [facility] [address] [id number] [address] [place] [address], [place] [address] Oct, [facility] [address] [id number] [address] [place] [address], [place] [address] Oct, [facility] [address] [id number] [address] [place] [address], [place] [address] Oct, [facility] [address] [id number] [address] [place] [address], [place] [address] Oct, [facility] [address] [id number] [address] [place] [address], [place] [address] Oct, [facility] [address] [id number] [address] [place] [address], [place] [address] Sep, 2013 [facility] [address] [id number] [address] [place] [address], [place] [address] Sep, [facility] [address] [id number] [address] [place] [address], [place] [address] Sep, 2013 [facility] [address] [id number] [address] [place] [address], [place] [address] Sep, [facility] [address] [id number] [address] [place] [address], [place] [address] Sep, 2013 [facility] [address] [id number] [address] [place] [address], [place] [address] Sep, [facility] [address] [id number] [address] [place] [address], [place] [address] Aug, [facility] [address] [id number] [address] [place] [address], [place] [address] Aug, [facility] [address] [id number] [address] [place] [address], [place] [address] Aug, [facility] [address] [id number] [address] [place] [address], [place] [address] Aug, [facility] [address] [id number] [address] [place] [address], [place] [address] Aug, [facility] [address] [id number] [address] [place] [address], [place] [address] Aug, [facility] [address] [id number] [address] [place] [address], [place] [address] July, [facility] [address] [id number] [address] [place] [address], [place] [address] July, [facility] [address] [id number] [address] [place] [address], [place] [address] Jun, [facility] [address] [id number] [address] [place] [address], [place] [address] Jun, 2013 [facility] [address] [id number] [facility] [place] [address] May, [facility] [address] [id number] [address] [place] [address], [place] [address] May, [facility] [address] [id number] [address] [place] [address], [place] [address] May, [facility] [address] [id number] [address] [place] [address], [place] [address] May, [facility] [address] [id number] [address] [place] [address], [place] [address] Apr, [facility] [address] [id number] [address] [place] [address], [place] [address] Apr, [facility] [address] [id number] [address] [place] [address], [place] [address] Apr, [facility] [address] [id number] [address] [place] [address], [place] [address] Apr, [facility] [address] [id number] [address] [place] [address], [place] [address] Apr, [facility] [address] [id number] [address] [place] [address], [place] [address] Apr, [facility] [address] [id number] [address] [place] [address], [place] [address] Feb, [facility] [address] [id number] [address] [place] [address], [place] [address] Feb, [facility] [address] [id number] [address] [place] [address], [place] [address] Feb, [facility] [address] [id number] [address] [place] [address], [place] [address] Feb, [facility] [address] [id number] [address] [place] [address], [place] [address] Jan, [facility] [address] [id number] [address] [place] [address], [place] [address] Jan, [facility] [address] [id number] [address] [place] [address], [place] [address] Dec, [facility] [address] [id number] [address] [place] [address], [place] [address] Dec, [facility] [address] [id number] [address] [place] [address], [place] [address] Dec, [facility] [address] [id number] [address] [place] [address], [place] [address] Dec, [facility] [address] [id number] [address] [place] [address], [place] [address] Oct, [facility] [address] [id number] [address] [place] [id number] Oct, [facility] [address] [id number] [address] [place] [id number] Oct, [facility] [address] [id number] [address] [place] [address], [place] [address] Oct, [facility] [address] [id number] [address] [place] [address], [place] [address] Sep, [facility] [address] [id number] [address] [place] [address], [place] [address] Sep, [facility] [address] [id number] [address] [place] [address], [place] [address] Aug, [facility] [address] [id number] [address] [place] [address], [place] [address] Aug, [facility] [address] [id number] [address] [place] [address], [place] [address] Aug, [facility] [address] [id number] [address] [place] [address], [place] [address] Aug, [facility] [address] [id number] [address] [place] [address], [place] [address] July, [facility] [address] [id number] [address] [place] [address], [place] [address] Jun, [facility] [address] [id number] [address] [place] [address], [place] [address] May, [facility] [address] [id number] [address] [place] [address], [place] [address] May, [facility] [address] [id number] [address] [place] [address], [place] [address] May, [facility] [address] [id number] [address] [place] [address], [place] [address] May, [facility] [address] [id number] [address] [place] [address], [place] [address] May, [facility] [address] [id number] [address] [place] [address], [place] [address] Apr, [facility] [address] [id number] [address] [place] [address], [place] [address] Apr, [facility] [address] [id number] [address] [place] [address], [place] [address] Apr, [facility] [address] [id number] [address] [place] [address], [place] [address] Apr, [facility] [address] [id number] [address] [place] [address], [place] [address] Mar, [facility] [address] [id number] [address] [place] [address], [place] [address] Mar, [facility] [address] [id number] [address] [place] [address], [place] [address] Mar, [facility] [address] [id number] [address] [place] [address], [place] [address] Mar, [facility] [address] [id number] [address] [place] [address], [place] [address] Jan, [facility] [address] [id number] [address] [place] [address], [place] [address] 16 Jan, 2012 [facility] [address] [id number] [address] [place] [address], [place] [address] 15 Jan, 2012 [facility] [address] [id number] [address] [place] [address], [place] [address] 15 Jan, 2012 [facility] [address] [id number] [address] [place] [address], [place] [address] 07 Jan, 2012 [facility] [address] [id number] [address] [place] [address], [place] [address] Jan, [facility] [address] [id number] [address] [place] [address], [place] [address] Jan, [facility] [address] [id number] [address] [place] [address], [place] [address] Jan, [facility] [address] [id number] [address] [place] [address], [place] [address] Jan, [facility] [address] [id number] [address] [place] [address], [place] [address] Jan, [facility] [address] [id number] [address] [place] [address], [place] [address] Dec, [facility] [address] [id number] [address] [place] [address], [place] [address] Dec, [facility] [address] [id number] [address] [place] [address], [place] [address] Dec, [facility] [address] [id number] [address] [place] [address], [place] [address] 27 Nov, 2011 [facility] [address] [id number] [address] [place] [address], [place] [address] 26 Nov, 2011 [facility] [address] [id number] [address] [place] [address], [place] [address] 12 Nov, 2011 [facility] [address] [id number] [address] [place] [address], [place] [address] Nov, [facility] [address] [facility] [id number] [address] [address] Oct, [facility] [address] [facility] [id number] [address] [place] [address] Oct, IMMUNIZATIONS No Known Immunizations SOCIAL HISTORY [...] egd 01/2019 Hospitalization History surgeries [facility]2018 Hospitalization History [facility]- 07/2018 [facility] - heart attack and [facility]hab -03/02/2019
--- OUTSIDE RECORDS SUMMARY | 2019-08-21 20:57 | XMS REPORT ---
Author Author Sarah AMADO Organization [facility] Address [address] [place] [address] Care Team Providers Care [employer] Psychological Examiner Name Role Phone GEE AMADO Unavailable PROBLEMS Type Condition ICD9-CM Code LXL94-RU Code Onset Dates Condition S tatus SNOMED Code Problem Coronary artery disease invo lving asa'carsarmiut coronary artery of asa'carsarmiut heart without angina pectoris I25.10 Active 1641 [id number] Problem Hyperlipidemia, unspecified hyperlipidemia type E7 8.5 Active 83477295 Problem Paresthesias in right hand R20.2 Act chidi [id number] Problem Neck pain M54.2 Active 72667367 Problem GERD (gastroesophageal reflux disease) K21.9 Active 943207248 Problem Essential hypertension I10 Active 44423234 Problem Chronic kidney disease, unspecified CKD stage N18. 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 Active 415472058 Problem Morbid (severe) obesity due to excess calories E66 .01 Active 942654228 Problem Chronic kidney disease, stage 3 (moderate) N18.3 Active 975551342 Problem Other cirrhosis of liver K74.69 Activ e 99463266 Problem Chronic diastolic (congestive) heart failure I50.3 2 Active 860873303 ALLERGIES No Information ENCOUNTERS Encounter Location Date Diagnosis [facility] [address] [id number] [address] [place] [phone] 14 Jul, 2019 [facility] [address] [id number] [address] [place] [address] July, [facility] [address] [id number] [address] [place] [address] July, [facility] [address] [id number] [address] [place] [address] July, [address] [id number] [place] [address] July, [address] [id number] [place] [address] Jun, [address] [id number] [address] Jun, Chronic diastolic (congestiv e) heart failure I50.32 ; COPD (chronic obstructive pulmonary disease) J44.9 ; Dyspnea R06.00 and Weakness R53.[address] [place] [address] Jun, [facility] [address] [id number] [address] [place] [address] Jun, [facility] [address] [id number] [address] [place] [address] Jun, [facility] [address] [id number] [address] [place] [address] May, [facility] [address] [id number] [address] [place] [address] May, Other cirrhosis of liver K74 .69 and Type 2 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, unspecified whether terminal superintendent insulin use E11.40 [facility] [address] [id number] [address] [place] [address] 16 May, 2019 [facility] [address] [id number] [address] [place] [address] 12 May, 2019 Type 2 diabetes mellitus wit h other specified complication E11.69 ; Other cirrhosis of liver K74.69 ; Chronic kidney disease, stage 3 (moderate) N18.3 ; Chronic diastolic (congestive) heart failure I50.32 ; Paroxysmal atrial fibrillation I48.0 ; Morbid (severe) obesity due to excess calories E66.01 and Hyperlipidemia, unspecified hyperlipidemia type E78.5 [facility] [address] [id number] [address] [place] [address] May, [address] [id number] [address] Apr, [facility] [address] [id number] [address] [place] [address] Mar, [facility] [address] [id number] [address] [place] [address] Mar, [facility] [address] [id number] [address] [place] [address] Mar, [facility] [address] [id number] [address] [place] [address] Mar, [facility] [address] [id number] [address] [place] [address] Mar, [address] [id number] [address] Mar, [address] [id number] [address] Mar, [facility] [address] [id number] [address] [place] [id number] Mar, [facility] [address] [id number] [address] [place] [address] Mar, [facility] [address] [id number] [address] [place] [address] Mar, [facility] [address] [id number] [address] [place] [address] Feb, [facility] [address] [id number] [address] [place] [address] Feb, Coronary artery disease invo lving asa'carsarmiut coronary artery of asa'carsarmiut heart without angina pectoris I25.10 ; Chronic kidney disease, stage 3 (moderate) N18.3 and Morbid (severe) obesity due to excess calories E66.01 [facility] [address] [id number] [address] [place] [address] Feb, [facility] [address] [id number] [address] [place] [address] Feb, [facility] [address] [id number] [address] [place] [address] Feb, [facility] [address] [id number] [address] [place] [address], [place] [address] Jan, [facility] [address] [id number] [address] [place] [address], [place] [address] Jan, [facility] [address] [id number] [address] [place] [address] Jan, [facility] [address] [id number] [address] [place] [address] Jan, [facility] [address] [id number] [address] [place] [address] Jan, [facility] [address] [id number] [address] [place] [address] Jan, [facility] [address] [id number] [address] [place] [address] Dec, [facility] [address] [id number] [address] Dec, [facility] [address] [id number] [address] [place] [address] Nov, [facility] [address] [id number] [address] [place] [address] Nov, [facility] [address] [id number] [address] [place] [address] Nov, [facility] [address] [id number] [address] [place] [address] Nov, [address] [id number] [place] [address] Oct, [facility] [address] [id number] [address] [place] [address] Oct, [address] [id number] [place] [address] Sep, [facility] [address] [id number] [address] [place] [address] Sep, [facility] [address] [id number] [address] [place] [address] Aug, Type 2 diabetes mellitus wit h unspecified complications E11.8 ; 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 and Obesity (BMI 30-39.9) E66.[address] [id number] [address] Aug, Type 2 diabetes mellitus wit hout complications E11.[address] [id number] [place] [address] Aug, Type 2 diabetes mellitus wit hout complications E11.9 [facility] [address] [id number] [address] [place] [address] Aug, [address] [id number] [place] [address] July, 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 helper 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 ins ulin Z79.4 and Type 2 diabetes mellitus with unspecified complications E11.[address] [id number] [address] July, Screening mammogram, encount er for Z12.31 [facility] [address] [id number] [address] [place] [address] July, [facility] [address] [id number] [address] [place] [address] July, Paroxysmal atrial fibrillati on I48.0 and Coronary artery disease involving asa'carsarmiut coronary artery of asa'carsarmiut heart without angina pectoris I25.10 [facility] [address] [id number] [address] [place] [address] Jun, [facility] [address] [id number] [address] [place] [address] Jun, [facility] [address] [id number] [address] [place] [address] May, [facility] [id number] [place] [address] May, Type 2 diabetes mellitus wit h unspecified complications E11.8 ; 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 ; Leg cramps R25.2 ; Essential hypertension I10 and Routine adult health maintenance Z00.00 [facility] [address] [id number] [address] [place] [phone] 07 Apr, 2018 [facility] [id number] [place] [address] Apr, [facility] [address] [id number] [address] [place] [address] Mar, Type 2 diabetes mellitus wit hout complications E11.9 [facility] [address] [id number] [address] [place] [address] Mar, Type 2 diabetes mellitus wit hout complications E11.9 [facility] [address] [id number] [address] [place] [address] Mar, Type 2 diabetes mellitus wit hout complications E11.9 [facility] [address] [id number] [address] [place] [id number] 14 Feb, 2018 Essential (primary) hyperten sofie I10 [facility] [address] [id number] [address] [place] [address] Feb, [facility] [address] [id number] [address] [place] [address] Jan, Type 2 diabetes mellitus wit hout complications E11.9 [facility] [address] [id number] [address] [place] [address] 30 Dec, 2017 [facility] [address] [id number] [address] [place] [address] 29 Dec, 2017 Type 2 diabetes mellitus wit h diabetic neuropathy, unspecified E11.40 ; correction 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 and Chronic kidney disease, unspecified CKD stage N18.9 [facility] [address] [id number] [address] [place] [address] 15 Dec, 2017 Type 2 diabetes mellitus wit hout complications E11.9 [facility] [address] [id number] [address] [place] [address] 10 Dec, 2017 [facility] [address] [id number] [address] [place] [address] 09 Dec, 2017 Type 2 diabetes mellitus wit hout complications E11.9 [facility] [address] [id number] [address] [place] [address] 08 Dec, 2017 [facility] [address] [id number] [address] [place] [address] Oct, [facility] [address] [id number] [address] [place] [address] Sep, [facility] [address] [id number] [address] [place] [address] Aug, [facility] [address] [id number] [address] [place] [address] Aug, Exposure to hepatitis C Z20. 5 and Routine adult health maintenance Z00.00 [facility] [address] [id number] [address] [place] [address] Aug, Exposure to hepatitis C Z20. 5 [facility] [address] [id number] [address] [place] [address] 11 Aug, 2017 Medicare annual wellness vis it, initial Z00.00 ; Coronary artery disease involving asa'carsarmiut coronary artery of asa'carsarmiut heart without angina pectoris I25.10 ; Hyperlipidemia, unspecified hyperlipidemia type E78.5 ; Essential hypertension I10 ; GERD (gastroesophageal reflux disease) K21.9 ; Routine adult health maintenance Z00.00 ; Encounter for immunization Z23 ; Type 2 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, unspecified E11.40 and correction 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 [facility] [address] [id number] [address] [place] [id number] 30 Jul, 2017 Type 2 diabetes mellitus wit hout complications E11.9 and Type 2 diabetes mellitus without complications E11.9 [facility] [address] [id number] [address] [place] [address] July, [facility] [address] [id number] [address] [place] [address] July, [facility] [address] [id number] [address] [place] [address] Mar, Type 2 diabetes mellitus wit hout complications E11.9 [facility] [address] [id number] [address] [place] [address] Mar, [facility] [address] [id number] [address] [place] [address] Feb, Type 2 diabetes mellitus wit hout complications E11.9 [facility] [address] [id number] [address] [place] [address] Jan, Type 2 diabetes mellitus wit hout complications E11.9 [facility] [address] [id number] [address] [place] [address] Jan, Type 2 diabetes mellitus wit hout complications E11.9 [facility] [address] [id number] [address] [place] [phone] Nov, [facility] [address] [id number] [address] [place] [address] Oct, Type 2 diabetes mellitus wit hout complications E11.9 [facility] [address] [id number] [address] [place] [address] Oct, Type 2 diabetes mellitus wit hout complications E11.9 ; Essential hypertension I10 and Neck pain M54.2 [facility] [address] [id number] [address] [place] [address] Sep, [facility] [address] [id number] [address] [place] [phone] 05 Aug, 2016 Type 2 diabetes mellitus wit hout complications E11.9 [facility] [address] [id number] [address] [place] [address] Jun, Type 2 diabetes mellitus wit hout complications E11.9 ; Neck pain M54.2 and Essential hypertension I10 [facility] [address] [id number] [address] [place] [address] 17 Jun, 2016 [facility] [address] [id number] [address] [place] [address] 14 Jun, 2016 [facility] [address] [id number] [address] [place] [address] 10 Jun, 2016 GERD (gastroesophageal reflu x disease) K21.9 and Type 2 diabetes mellitus without complications E11.9 [facility] [address] [id number] [address] [place] [address] 10 Mar, 2016 Paresthesias in right hand R 20.2 [facility] [address] [id number] [address] [place] [address] Feb, Type 2 diabetes mellitus wit hout complications E11.9 [facility] [address] [id number] [address] [place] [id number] Feb, Encounter for dental examina tion Z01.20 [facility] [address] [id number] [address] [place] [address] 09 Feb, 2016 Type 2 diabetes mellitus wit hout complications E11.9 and Neck pain M54.2 [facility] [address] [id number] [address] [place] [address] Feb, Type 2 diabetes mellitus wit hout complications E11.9 [facility] [address] [id number] [address] [place] [id number] Jan, Dental examination Z01.20 [facility] [address] [id number] [address] [place] [address] Jan, [facility] [address] [id number] [address] [place] [address] Jan, [facility] [address] [id number] [address] [place] [address] [id number] Dec, Dental caries K02.9 [facility] [address] [id number] [address] [place] [address] Nov, [facility] [address] [id number] [address] [place] [address] Nov, [facility] [address] [id number] [address] [place] [address] Oct, Type 2 diabetes mellitus wit hout complications E11.9 ; Neck pain M54.2 and Essential hypertension I10 [facility] [address] [id number] [address] [place] [address] Oct, [facility] [id number] [place] [id number] Oct, Dental examination Z01.20 [facility] [address] [id number] [address] [place] [address] Sep, [facility] [address] [id number] [address] [place] [address] Sep, [facility] [address] [id number] [address] [place] [address] Aug, Essential (primary) hyperten sofie I10 [facility] [address] [id number] [address] [place] [address] Aug, [facility] [address] [id number] [address] [place] [address] Aug, [facility] [address] [id number] [address] [place] [address] July, Essential (primary) hyperten sofie I10 [facility] [address] [id number] [address] [place] [address] July, Essential (primary) hyperten sofie I10 and Type 2 diabetes mellitus without complications E11.9 [facility] [address] [id number] [address] [place] [address] July, [facility] [address] [id number] [address] [place] [id number] Jun, GERD (gastroesophageal reflu x disease) K21.9 [facility] [address] [id number] [address] [place] [phone] Jun, GERD (gastroesophageal reflu x disease) K21.9 [facility] [address] [id number] [address] [place] [address] Jun, [facility] [address] [id number] [address] [place] [address] Jun, Neuropathy G62.9 [facility] [address] [id number] [address] [place] [id number] May, Essential (primary) hyperten sofie I10 [facility] [address] [id number] [address] [place] [address] May, Bronchitis J40 [facility] [address] [id number] [address] [place] [phone] 15 May, 2015 Type 2 diabetes mellitus wit hout complications E11.9 and Essential (primary) hypertension I10 [facility] [address] [id number] [address] [place] [phone] May, [facility] [address] [id number] [address] [place] [address] May, GERD (gastroesophageal reflu x disease) K21.9 [facility] [address] [id number] [address] [place] [phone] Apr, Other and unspecified hyperl ipidemia 272.4 ; Unspecified essential hypertension 401.9 ; Type 2 diabetes mellitus without complications E11.9 ; Neck pain M54.2 and Paresthesias in right hand R20.2 [facility] [address] [id number] [address] [place] [phone] Apr, [facility] [address] [id number] [address] [place] [id number] Apr, Neuropathy G62.9 [facility] [address] [id number] [address] [place] [address] Mar, [facility] [id number] [place] [id number] Feb, [facility] [address] [id number] [address] [place] [address] Jan, [facility] [address] [id number] [address] [place] [id number] Dec, [facility] [address] [id number] [address] [place] [id number] Dec, Type 2 diabetes mellitus wit hout complications E11.9 ; Encounter for immunization Z23 and Neck pain M54.2 [facility] [address] [id number] [address] [place] [id number] Dec, [facility] [address] [id number] [address] [place] [id number] Nov, [facility] [address] [id number] [address] [place] [id number] Nov, [facility] [address] [id number] [address] [place] [id number] Oct, [facility] [address] [id number] [address] [place] [id number] Oct, [facility] [address] [id number] [address] [place] [id number] Sep, [facility] [address] [id number] [address] [place] [id number] Sep, Coronary atherosclerosis of unspecified type of vessel, [place]a'[place] or graft 414.00 ; Diabetes mellitus without mention of complication, type II or unspecified type, not stated as uncontrolled 250.00 ; Hyperlipidemia 272.4 and HTN (hypertension) 401.9 [facility] [address] [id number] [address] [place] [id number] Aug, [facility] [address] [id number] [address] [place] [id number] July, [facility] [address] [id number] [address] [place] [id number] Jun, [facility] [address] [id number] [address] [place] [id number] Jun, [facility] [address] [id number] [address] [place] [id number] May, [facility] [address] [id number] [address] [place] [id number] May, [facility] [address] [id number] [address] [place] [id number] May, [facility] [address] [id number] [address] [place] [id number] May, [facility] [address] [id number] [address] [place] [id number] Apr, [facility] [address] [id number] [address] [place] [id number] Apr, [facility] [address] [id number] [address] [place] [id number] Apr, [facility] [address] [id number] [address] [place] [id number] Apr, [facility] [address] [id number] [address] [place] [id number] Apr, [facility] [address] [id number] [address] [place] [address], [place] [id number] Apr, [facility] [address] [id number] [address] [place] [address], [place] [address] Apr, [facility] [address] [id number] [address] [place] [address], [place] [address] Apr, [facility] [address] [id number] [address] [place] [address], [place] [address] Mar, [facility] [address] [id number] [address] [place] [address], [place] [address] Mar, [facility] [address] [id number] [address] [place] [address], [place] [address] Mar, [facility] [address] [id number] [address] [place] [address], [place] [address] Mar, [facility] [address] [id number] [address] [place] [address], [place] [address] Mar, [facility] [address] [id number] [address] [place] [address], [place] [address] Mar, [facility] [address] [id number] [address] [place] [address], [place] [address] Mar, [facility] [address] [id number] [address] [place] [address], [place] [address] Mar, [facility] [address] [id number] [address] [place] [address], [place] [address] Feb, [facility] [address] [id number] [address] [place] [address], [place] [address] Feb, [facility] [address] [id number] [address] [place] [address], [place] [address] Feb, [facility] [address] [id number] [address] [place] [address], [place] [address] Feb, [facility] [address] [id number] [address] [place] [address], [place] [address] Feb, [facility] [address] [id number] [address] [place] [address], [place] [address] Feb, [facility] [address] [id number] [address] [place] [address], [place] [address] Feb, [facility] [address] [id number] [address] [place] [address], [place] [address] Feb, [facility] [address] [id number] [address] [place] [address], [place] [address] Feb, [facility] [address] [id number] [address] [place] [address], [place] [address] Feb, [facility] [address] [id number] [address] [place] [address], [place] [address] Jan, [facility] [address] [id number] [address] [place] [address], [place] [address] Jan, [facility] [address] [id number] [address] [place] [address], [place] [address] Dec, [facility] [address] [id number] [address] [place] [address], [place] [address] Dec, [facility] [address] [id number] [address] [place] [address], [place] [address] Dec, [facility] [address] [id number] [address] [place] [address], [place] [address] Dec, [facility] [address] [id number] [address] [place] [address] 15 Nov, 2013 [facility] [address] [id number] [address] [place] [address], [place] [address] 15 Nov, 2013 [facility] [address] [id number] [address] [place] [address], [place] [address] Nov, [facility] [address] [id number] [address] [place] [address], [place] [address] Nov, [facility] [address] [id number] [address] [place] [address], [place] [address] Oct, [facility] [address] [id number] [address] [place] [address], [place] [address] Oct, [facility] [address] [id number] [address] [place] [address], [place] [address] Oct, [facility] [address] [id number] [address] [place] [address], [place] [address] Oct, [facility] [address] [id number] [address] [place] [address], [place] [address] Oct, [facility] [address] [id number] [address] [place] [address], [place] [address] Sep, [facility] [address] [id number] [address] [place] [address], [place] [address] Sep, [facility] [address] [id number] [address] [place] [address], [place] [address] Sep, [facility] [address] [id number] [address] [place] [address], [place] [address] Sep, [facility] [address] [id number] [address] [place] [address], [place] [address] Sep, [facility] [address] [id number] [address] [place] [address], [place] [address] Sep, [facility] [address] [id number] [address] [place] [address], [place] [address] Aug, [facility] [address] [id number] [address] [place] [address], [place] [address] Aug, [facility] [address] [id number] [address] [place] [address], [place] [address] Aug, [facility] [address] [id number] [address] [place] [address], [place] [address] Aug, [facility] [address] [id number] [address] [place] [address], [place] [address] Aug, [facility] [address] [id number] [address] [place] [address], [place] [address] Aug, [facility] [address] [id number] [address] [place] [address], [place] [address] July, [facility] [address] [id number] [address] [place] [address], [place] [address] July, [facility] [address] [id number] [address] [place] [address], [place] [address] Jun, [facility] [address] [id number] [address] [place] [address], [place] [address] Jun, [facility] [address] [id number] [address] [place] [address], [place] [address] May, [facility] [address] [id number] [address] [place] [address], [place] [address] May, [facility] [address] [id number] [address] [place] [address], [place] [address] May, [facility] [address] [id number] [address] [place] [address], [place] [address] May, [facility] [address] [id number] [address] [place] [address], [place] [address] Apr, [facility] [address] [id number] [address] [place] [address], [place] [address] Apr, [facility] [address] [id number] [address] [place] [address], [place] [address] Apr, [facility] [address] [id number] [address] [place] [address], [place] [address] Apr, [facility] [address] [id number] [address] [place] [address], [place] [address] Apr, [facility] [address] [id number] [address] [place] [address], [place] [address] Apr, [facility] [address] [id number] [address] [place] [address], [place] [address] 06 Feb, 2013 [facility] [address] [id number] [address] [place] [address], [place] [address] Feb, [facility] [address] [id number] [address] [place] [address], [place] [address] Feb, [facility] [address] [id number] [address] [place] [address], [place] [address] Feb, [facility] [address] [id number] [address] [place] [address], [place] [address] Jan, [facility] [address] [id number] [address] [place] [address], [place] [address] Jan, [facility] [address] [id number] [address] [place] [address], [place] [address] Dec, [facility] [address] [id number] [address] [place] [address], [place] [address] Dec, [facility] [address] [id number] [address] [place] [address], [place] [address] Dec, [facility] [address] [id number] [address] [place] [address], [place] [address] Dec, [facility] [address] [id number] [address] [place] [address], [place] [address] Oct, [facility] [address] [id number] [address] [place] [id number] Oct, [facility] [address] [id number] [address] [place] [id number] Oct, [facility] [address] [id number] [address] [place] [address], [place] [address] Oct, [facility] [address] [id number] [address] [place] [address], [place] [address] Sep, [facility] [address] [id number] [address] [place] [address] Sep, [facility] [address] [id number] [address] [place] [address], [place] [address] Aug, [facility] [address] [id number] [address] [place] [address], [place] [address] Aug, [facility] [address] [id number] [address] [place] [address], [place] [address] Aug, [facility] [address] [id number] [address] [place] [address], [place] [address] Aug, [facility] [address] [id number] [address] [place] [address], [place] [address] July, [facility] [address] [id number] [address] [place] [address], [place] [address] Jun, [facility] [address] [id number] [address] [place] [address], [place] [address] May, [facility] [address] [id number] [address] [place] [address], [place] [address] May, [facility] [address] [id number] [address] [place] [address], [place] [address] May, [facility] [address] [id number] [address] [place] [address], [place] [address] May, [facility] [address] [id number] [address] [place] [address], [place] [address] May, [facility] [address] [id number] [address] [place] [address], [place] [address] Apr, [facility] [address] [id number] [address] [place] [address], [place] [address] Apr, [facility] [address] [id number] [address] [place] [address], [place] [address] Apr, [facility] [address] [id number] [address] [place] [address], [place] [address] Apr, [facility] [address] [id number] [address] [place] [address] [place] [address] Mar, [facility] [address] [id number] [address] [place] [address], [place] [address] Mar, [facility] [address] [id number] [address] [place] [address], [place] [address] Mar, [facility] [address] [id number] [address] [place] [address], [place] [address] Mar, [facility] [address] [id number] [address] [place] [address], [place] [address] Jan, [facility] [address] [id number] [address] [place] [address], [place] [address] Jan, [facility] [address] [id number] [address] [place] [address], [place] [address] Jan, [facility] [address] [id number] [address] [place] [address], [place] [address] Jan, [facility] [address] [id number] [address] [place] [address], [place] [address] Jan, [facility] [address] [id number] [address] [place] [address], [place] [address] Jan, [facility] [address] [id number] [address] [place] [address], [place] [address] Jan, [facility] [address] [id number] [address] [place] [address], [place] [address] Jan, [facility] [address] [id number] [address] [place] [address], [place] [address] Jan, [facility] [address] [id number] [address] [place] [address], [place] [address] Jan, [facility] [address] [id number] [address] [place] [address], [place] [address] Dec, [facility] [address] [id number] [address] [place] [address], [place] [address] Dec, [facility] [address] [id number] [address] [place] [address] Dec, [facility] [address] [id number] [address] [place] [address] Nov, [facility] [address] [id number] [address] [place] [address] Nov, [facility] [address] [id number] [address] [place] [address] Nov, [facility] [address] [id number] [address] [place] [address] Nov, [facility] [address] [id number] [address] [place] [address] Oct, [facility] [address] [id number] [address] [place] [address] Oct, IMMUNIZATIONS No Known Immunizations SOCIAL HISTORY [...] surgeries Hospitalization History jeny 06/2018 Hospitalization History [facility]- 07/2018 Hospitalization [facility] - heart attack and rehab -03/02/2019
--- OUTSIDE RECORDS SUMMARY | 2019-08-21 20:57 | XMS REPORT ---
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 Role Phone GEE AMADO Unavailable PROBLEMS Type Condition ICD9-CM Code FGF00-KU Code Onset Dates Condition S tatus SNOMED Code Problem Coronary artery disease invo lving [place] coronary artery of [place] heart without angina pectoris I25.10 Active 1641 [id number] Problem Hyperlipidemia, unspecified hyperlipidemia type E7 8.5 Active 34935515 Problem Paresthesias in right hand R20.2 Act chidi 392896764 Problem Neck pain M54.2 Active 77838752 Problem GERD (gastroesophageal reflux disease) K21.9 Active 902795663 Problem Essential hypertension I10 Active 61912759 Problem Chronic kidney disease, unspecified CKD stage N18. 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 Active 402079174 Problem Morbid (severe) obesity due to excess calories E66 .01 Active 064383180 Problem Chronic kidney disease, stage 3 (moderate) N18.3 Active 386027791 Problem Other cirrhosis of liver K74.69 Activ e 03435309 Problem Chronic diastolic (congestive) heart failure I50.3 2 Active [id number] ALLERGIES No Information ENCOUNTERS Encounter Location Date Diagnosis [facility] [place] [address] [facility] [id number] [address] [place] [phone] 14 Jul, 2019 [facility] [place] [address] [facility] [id number] [address] [place] [phone] July, [facility] [place] [address] [facility] [id number] [address] [place] [phone] July, [facility] [place] [address] [facility] [id number] [address] [place] [phone] July, [address] [id number] [place] [address] July, [address] [id number] [place] [address] Jun, [address] [id number] [address] Jun, Chronic diastolic (congestiv e) heart failure I50.32 ; COPD (chronic obstructive pulmonary disease) J44.9 ; Dyspnea R06.00 and Weakness R53.[address] [place] [address] Jun, [facility] [place] [address] [facility] [id number] [address] [place] [phone] Jun, [facility] [place] [address] [facility] [id number] [address] [place] [phone] Jun, [facility] [place] [address] [facility] [id number] [address] [place] [phone] May, [facility] [place] [address] [facility] [id number] [address] [place] [phone] May, Other cirrhosis of liver K74 .69 and Type 2 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, unspecified whether petroleum geologist insulin use E11.40 [facility] [place] [address] [facility] [id number] [address] [place] [phone] 16 May, 2019 [facility] [place] [address] [facility] [id number] [address] [place] [phone] 12 May, 2019 Type 2 diabetes mellitus wit h other specified complication E11.69 ; Other cirrhosis of liver K74.69 ; Chronic kidney disease, stage 3 (moderate) N18.3 ; Chronic diastolic (congestive) heart failure I50.32 ; Paroxysmal atrial fibrillation I48.0 ; Morbid (severe) obesity due to excess calories E66.01 and Hyperlipidemia, unspecified hyperlipidemia type E78.5 [facility] [place] [address] [id number] [address] [place] [id number] May, [address] [id number], [place] [address] Apr, [facility] [place] [address] [id number] [address] [place] [phone] Mar, [facility] [place] [address] [id number] [address] [place] [phone] Mar, [facility] [place] [address] [id number] [address] [place] [phone] Mar, [facility] [place] [address] [id number] [address] [place] [phone] Mar, [facility] [place] [address] [id number] [address] [place] [phone] Mar, [address] [id number], [place] [address] Mar, [address] [id number], [place] [address] Mar, [facility] [place] [address] [id number] [address] [place] [phone] Mar, [facility] [place] [address] [id number] [address] [place] [phone] Mar, [facility] [place] [address] [id number] [address] [place] [phone] Mar, [facility] [place] [address] [id number] [address] [place] [phone] Feb, [facility] [place] [address] [id number] [address] [place] [phone] Feb, Coronary artery disease invo lving [place] coronary artery of [place] heart without angina pectoris I25.10 ; Chronic kidney disease, stage 3 (moderate) N18.3 and Morbid (severe) obesity due to excess calories E66.01 [facility] [address] [id number] [address] [place] [phone] Feb, [facility] [address] [id number] [address] [place] [phone] Feb, [facility] [address] [id number] [address] [place] [phone] Feb, [facility] [address] [id number] [address] [place] [address], [place] [address] Jan, [facility] [address] [id number] [address] [place] [address], [place] [address] Jan, [facility] [address] [id number] [address] [place] [phone] Jan, [facility] [address] [id number] [address] [place] [phone] Jan, [facility] [address] [id number] [address] [place] [phone] Jan, [facility] [address] [id number] [address] [place] [phone] Jan, [facility] [place] [address] [facility] [id number] [address] [place] [phone] Dec, [facility] [address] [id number], [place] [address] Dec, [facility] [place] [address] [id number] [address] [place] [phone] Nov, [facility] [address] [id number] [address] [place] [phone] Nov, [facility] [address] [id number] [address] [place] [phone] Nov, [facility] [address] [id number] [address] [place] [phone] Nov, [address] [id number] [place] [address] Oct, [facility] [place] [address] [id number] [address] [place] [phone] Oct, [address] [id number] [place] [address] Sep, [facility] [place] [address] [facility] [id number] [address] [place] [phone] Sep, [facility] [place] [address] [facility] [id number] [address] [place] [phone] Aug, Type 2 diabetes mellitus wit h unspecified complications E11.8 ; 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 and Obesity (BMI 30-39.9) E66.[address] 340[address] [id number] [address] Aug, Type 2 diabetes mellitus wit hout complications E11.[address] [id number] [place] [address] Aug, Type 2 diabetes mellitus wit hout complications E11.9 [place] [address] [facility] [id number] [address] [place] [phone] Aug, [address] [id number] [place] [address] July, senior technical architect 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 ins ulin Z79.4 and Type 2 diabetes mellitus with unspecified complications E11.[address] 340[address] [id number], [place] [address] July, Screening mammogram, encount er for Z12.31 [facility] [place] [address] [id number] [address] [place] [phone] July, [facility] [place] [address] [facility] [id number] [address] [place] [phone] July, Paroxysmal atrial fibrillati on I48.0 and Coronary artery disease involving [place] coronary artery of [place] heart without angina pectoris I25.10 [facility] [place] [address] [facility] [id number] [address] [place] [phone] Jun, [facility] [place] [address] [facility] [id number] [address] [place] [phone] Jun, [facility] [place] [address] [facility] [id number] [address] [place] [phone] May, [facility] [place] [address] [place] [id number] [place] [phone] May, Type 2 diabetes mellitus wit h unspecified complications E11.8 ; 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 ; Leg cramps R25.2 ; Essential hypertension I10 and Routine adult health maintenance Z00.00 [facility] [place] [address] [facility] [id number] [address] [place] [phone] 07 Apr, 2018 [facility] [place] [address] [place] [id number] [place] [phone] Apr, [facility] [place] [address] [place] [id number] [address] [place] [phone] Mar, Type 2 diabetes mellitus wit hout complications E11.9 [facility] [place] [address] [place] [id number] [address] [place] [phone] Mar, Type 2 diabetes mellitus wit hout complications E11.9 [facility] [place] [address] [facility] [id number] [address] [place] [phone] Mar, Type 2 diabetes mellitus wit hout complications E11.9 [facility] [place] [address] [facility] [id number] [address] [place] [phone] 14 Feb, 2018 Essential (primary) hyperten sofie I10 [facility] [place] [address] [facility] [id number] [address] [place] [phone] Feb, [facility] [place] [address] [facility] [id number] [address] [place] [phone] Jan, Type 2 diabetes mellitus wit hout complications E11.9 [facility] [place] [address] [id number] [address] [place] [phone] 30 Dec, 2017 [facility] [place] [address] [id number] [address] [place] [id number] 29 Dec, 2017 Type 2 diabetes mellitus wit h diabetic neuropathy, unspecified E11.40 ; alf 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 and Chronic kidney disease, unspecified CKD stage N18.9 [facility] [place] [address] [id number] [address] [place] [phone] 15 Dec, 2017 Type 2 diabetes mellitus wit hout complications E11.9 [facility] [place] [address] [id number] [address] [place] [phone] 10 Dec, 2017 [facility] [place] [address] [id number] [address] [place] [phone] 09 Dec, 2017 Type 2 diabetes mellitus wit hout complications E11.9 [facility] [place] [address] [id number] [address] [place] [phone] 08 Dec, 2017 [facility] [place] [address] [id number] [address] [place] [phone] Oct, [facility] [place] [address] [id number] [address] [place] [phone] Sep, [facility] [place] [address] [id number] [address] [place] [phone] Aug, [facility] [place] [address] [id number] [address] [place] [id number] Aug, Exposure to hepatitis C Z20. 5 and Routine adult health maintenance Z00.00 [facility] [place] [address] [id number] [address] [place] [phone] Aug, Exposure to hepatitis C Z20. 5 [facility] [place] [address] [facility] [id number] [address] [place] [phone] 11 Aug, 2017 Medicare annual wellness vis it, initial Z00.00 ; Coronary artery disease involving [place] coronary artery of [place] heart without angina pectoris I25.10 ; Hyperlipidemia, unspecified hyperlipidemia type E78.5 ; Essential hypertension I10 ; GERD (gastroesophageal reflux disease) K21.9 ; Routine adult health maintenance Z00.00 ; Encounter for immunization Z23 ; Type 2 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, unspecified E11.40 and alf 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 [facility] [place] [address] [facility] [id number] [address] [place] [phone] 30 Jul, 2017 Type 2 diabetes mellitus wit hout complications E11.9 and Type 2 diabetes mellitus without complications E11.9 [facility] [place] [address] [id number] [address] [place] [phone] July, [facility] [place] [address] [facility] [id number] [address] [place] [phone] July, [facility] [place] [address] [facility] [id number] [address] [place] [phone] Mar, Type 2 diabetes mellitus wit hout complications E11.9 [facility] [place] [address] [facility] [id number] [address] [place] [phone] Mar, [facility] [place] [address] [id number] [address] [place] [phone] Feb, Type 2 diabetes mellitus wit hout complications E11.9 [facility] [place] [address] [facility] [id number] [address] [place] [phone] Jan, Type 2 diabetes mellitus wit hout complications E11.9 [facility] [place] [address] [facility] [id number] [address] [place] [phone] Jan, Type 2 diabetes mellitus wit hout complications E11.9 [facility] [place] [address] [id number] [address] [place] [phone] Nov, [facility] [place] [address] [facility] [id number] [address] [place] [phone] Oct, Type 2 diabetes mellitus wit hout complications E11.9 [facility] [place] [address] [facility] [id number] [address] [place] [phone] Oct, Type 2 diabetes mellitus wit hout complications E11.9 ; Essential hypertension I10 and Neck pain M54.2 [facility] [place] [address] [id number] [address] [place] [phone] Sep, [facility] [place] [address] [id number] [address] [place] [phone] 05 Aug, 2016 Type 2 diabetes mellitus wit hout complications E11.9 [facility] [place] [address] [facility] [id number] [address] [place] [phone] Jun, Type 2 diabetes mellitus wit hout complications E11.9 ; Neck pain M54.2 and Essential hypertension I10 [facility] [place] [address] [id number] [address] [place] [phone] 17 Jun, 2016 [facility] [place] [address] [id number] [address] [place] [phone] 14 Jun, 2016 [facility] [place] [address] [facility] [id number] [address] [place] [id number] 10 Jun, 2016 GERD (gastroesophageal reflu x disease) K21.9 and Type 2 diabetes mellitus without complications E11.9 [facility] [place] [address] [id number] [address] [place] [phone] 10 Mar, 2016 Paresthesias in right hand R 20.2 [facility] [place] [address] [id number] [address] [place] [phone] Feb, Type 2 diabetes mellitus wit hout complications E11.9 [facility] [address] [id number] [address] [place] [id number] Feb, Encounter for dental examina tion Z01.20 [facility] [place] [address] [id number] [address] [place] [phone] 09 Feb, 2016 Type 2 diabetes mellitus wit hout complications E11.9 and Neck pain M54.2 [facility] [place] [address] [id number] [address] [place] [phone] Feb, Type 2 diabetes mellitus wit hout complications E11.9 [facility] [address] [id number] [address] [place] [id number] Jan, Dental examination Z01.20 [facility] [place] [address] [id number] [address] [place] [phone] Jan, [facility] [place] [address] [id number] [address] [place] [phone] Jan, [facility] [address] [id number] [address] [place] [id number] Dec, Dental caries K02.9 [facility] [place] [address] [id number] [address] [place] [phone] Nov, [facility] [place] [address] [id number] [address] [place] [phone] Nov, [facility] [place] [address] [id number] [address] [place] [id number] Oct, Type 2 diabetes mellitus wit hout complications E11.9 ; Neck pain M54.2 and Essential hypertension I10 [facility] [place] [address] [id number] [address] [place] [phone] Oct, [facility] [id number] [place] [id number] Oct, Dental examination Z01.20 [facility] [place] [address] [id number] [address] [place] [phone] Sep, [facility] [place] [address] [id number] [address] [place] [phone] Sep, [facility] [place] [address] [id number] [address] [place] [id number] Aug, Essential (primary) hyperten sofie I10 [facility], [place], [facility] [address] [id number] [address] [place] [id number] Aug, [facility], [place], [facility] [address] [facility] [id number] [address] [place] [id number] Aug, [facility], [place], [facility] [address] [id number] [address] [place] [phone] July, Essential (primary) hyperten sofie I10 [facility], [place], [facility] [address] [id number] [address] [place] [phone] July, Essential (primary) hyperten sofie I10 and Type 2 diabetes mellitus without complications E11.9 [facility], [place], [facility] [address] [id number] [address] [place] [id number] July, [facility], [place], [facility] [address] [id number] [address] [place] [id number] Jun, GERD (gastroesophageal reflu x disease) K21.9 [facility], [place], [facility] [address] [facility] [id number] [address] [place] [id number] Jun, GERD (gastroesophageal reflu x disease) K21.9 [facility], [place], [facility] [address] [facility] [id number] [address] [place] [id number] Jun, [facility], [place], [facility] [address] [facility] [id number] [address] [place] [id number] Jun, Neuropathy G62.9 [facility], [place], [facility] [address] [facility] [id number] 54 [place] [id number] May, Essential (primary) hyperten sofie I10 [facility] [address] [id number] [address] [place] [phone] May, Bronchitis J40 [facility] [place] [address] [facility] [id number] [address] [place] [phone] 15 May, 2015 Type 2 diabetes mellitus wit hout complications E11.9 and Essential (primary) hypertension I10 [facility] [place] [address] [id number] [address] [place] [phone] May, [facility] [place] [address] [facility] [id number] [address] [place] [phone] May, GERD (gastroesophageal reflu x disease) K21.9 [facility] [place] [address] [facility] [id number] [address] [place] [address] Apr, Other and unspecified hyperl ipidemia 272.4 ; Unspecified essential hypertension 401.9 ; Type 2 diabetes mellitus without complications E11.9 ; Neck pain M54.2 and Paresthesias in right hand R20.2 [facility] [place] [address] [facility] [id number] [address] [place] [phone] Apr, [facility] [place] [address] [facility] [id number] [address] [place] [phone] Apr, Neuropathy G62.9 [facility] [place] [address] [facility] [id number] [address] [place] [phone] Mar, [facility] [place] [address] [facility] [id number] [place] [phone] Feb, [facility] [place] [address] [place] [id number] [address] [place] [phone] Jan, [facility] [place] [address] [place] [id number] [address] [place] [phone] Dec, [facility] [place] [address] [facility] [id number] [address] [place] [phone] Dec, Type 2 diabetes mellitus wit hout complications E11.9 ; Encounter for immunization Z23 and Neck pain M54.2 [facility] [place] [address] [facility] [id number] [address] [place] [phone] Dec, [facility] [place] [address] [facility] [id number] [address] [place] [phone] Nov, [facility] [place] [address] [facility] [id number] [address] [place] [phone] Nov, [facility] [place] [address] [facility] [id number] [address] [place] [phone] Oct, [facility] [place] [address] [facility] [id number] [address] [place] [phone] Oct, [facility] [place] [address] [facility] [id number] [address] [place] [phone] Sep, [facility] [place] [address] [id number] [address] [place] [address] Sep, Coronary atherosclerosis of unspecified type of vessel, [place] or graft 414.00 ; Diabetes mellitus without mention of complication, type II or unspecified type, not stated as uncontrolled 250.00 ; Hyperlipidemia 272.4 and HTN (hypertension) 401.9 [facility] [place] [address] [id number] [address] [place] [phone] Aug, [facility] [place] [address] [id number] [address] [place] [phone] July, [facility] [place] [address] [id number] [address] [place] [phone] Jun, [facility] [place] [address] [id number] [address] [place] [phone] Jun, [facility] [place] [address] [id number] [address] [place] [phone] May, [facility] [place] [address] [id number] [address] [place] [phone] May, [facility] [place] [address] [id number] [address] [place] [phone] May, [facility] [place] [address] [id number] [address] [place] [id number] May, [facility] [place] [address] [id number] [address] [place] [phone] Apr, [facility] [place] [address] [id number] [address] [place] [phone] Apr, [facility] [place] [address] [id number] [address] [place] [id number] Apr, [facility] [place] [address] [id number] [address] [place] [phone] Apr, [facility] [place] [address] [id number] [address] [place] [phone] Apr, [facility] [address] [id number] [address] [place] [address], [place] [address] Apr, [facility] [address] [id number] [address] [place] [address], [place] [address] Apr, [facility] [address] [id number] [address] [place] [address], [place] [address] Apr, [facility] [address] [id number] [address] [place] [address], [place] [address] Mar, [facility] [address] [id number] [address] [place] [address], [place] [address] Mar, [facility] [address] [id number] [address] [place] [address], [place] [address] Mar, [facility] [address] [id number] [address] [place] [address], [place] [address] Mar, [facility] [address] [id number] [address] [place] [address], [place] [address] Mar, [facility] [address] [id number] [address] [place] [address], [place] [address] Mar, [facility] [address] [id number] [address] [place] [address], [place] [address] Mar, [facility] [address] [id number] [address] [place] [address], [place] [address] Mar, [facility] [address] [id number] [address] [place] [address], [place] [address] Feb, [facility] [address] [id number] [address] [place] [address], [place] [address] Feb, [facility] [address] [id number] [address] [place] [address], [place] [address] Feb, [facility] [address] [id number] [address] [place] [address], [place] [address] Feb, [facility] [address] [id number] [address] [place] [address], [place] [address] Feb, [facility] [address] [id number] [address] [place] [address], [place] [address] Feb, [facility] [address] [id number] [address] [place] [address], [place] [address] Feb, [facility] [address] [id number] [address] [place] [address], [place] [address] Feb, [facility] [address] [id number] [address] [place] [address], [place] [address] Feb, [facility] [address] [id number] [address] [place] [address], [place] [address] Feb, [facility] [address] [id number] [address] [place] [address], [place] [address] Jan, [facility] [address] [id number] [address] [place] [address], [place] [address] Jan, [facility] [address] [id number] [address] [place] [address], [place] [address] Dec, [facility] [address] [id number] [address] [place] [address], [place] [address] Dec, [facility] [address] [id number] [address] [place] [address], [place] [address] Dec, [facility] [address] [id number] [address] [place] [address], [place] [address] Dec, [facility] [address] [id number] [address] [place] [phone] 15 Nov, 2013 [facility] [address] [id number] [address] [place] [address], [place] [address] 15 Nov, 2013 [facility] [address] [id number] [address] [place] [address], [place] [address] Nov, [facility] [address] [id number] [address] [place] [address], [place] [address] Nov, [facility] [address] [id number] [address] [place] [address], [place] [address] Oct, [facility] [address] [id number] [address] [place] [address], [place] [address] Oct, [facility] [address] [id number] [address] [place] [address], [place] [address] Oct, [facility] [address] [id number] [address] [place] [address], [place] [address] Oct, [facility] [address] [id number] [address] [place] [address], [place] [address] Oct, [facility] [address] [id number] [address] [place] [address], [place] [address] Sep, [facility] [address] [id number] [address] [place] [address], [place] [address] Sep, [facility] [address] [id number] [address] [place] [address], [place] [address] Sep, [facility] [address] [id number] [address] [place] [address], [place] [address] Sep, [facility] [address] [id number] [address] [place] [address], [place] [address] Sep, [facility] [address] [id number] [address] [place] [address], [place] [address] Sep, [facility] [address] [id number] [address] [place] [address], [place] [address] Aug, [facility] [address] [id number] [address] [place] [address], [place] [address] Aug, [facility] [address] [id number] [address] [place] [address], [place] [address] Aug, [facility] [address] [id number] [address] [place] [address], [place] [address] Aug, [facility] [address] [id number] [address] [place] [address], [place] [address] Aug, [facility] [address] [id number] [address] [place] [address], [place] [address] Aug, [facility] [address] [id number] [address] [place] [address], [place] [address] July, [facility] [address] [id number] [address] [place] [address], [place] [address] July, [facility] [address] [id number] [address] [place] [address], [place] [address] Jun, [facility] [address] [id number] [address] [place] [address], [place] [address] Jun, [facility] [address] [id number] [address] [place] [address], [place] [address] May, [facility] [address] [id number] [address] [place] [address], [place] [address] May, [facility] [address] [id number] [address] [place] [address], [place] [address] May, [facility] [address] [id number] [address] [place] [address], [place] [address] May, [facility] [address] [id number] [address] [place] [address], [place] [address] Apr, [facility] [address] [id number] [address] [place] [address], [place] [address] Apr, [facility] [address] [id number] [address] [place] [address], [place] [address] Apr, [facility] [address] [id number] [address] [place] [address], [place] [address] Apr, [facility] [address] [id number] [address] [place] [address], [place] [address] Apr, [facility] [address] [id number] [address] [place] [address], [place] [address] Apr, [facility] [address] [id number] [address] [place] [address], [place] [address] 06 Feb, 2013 [facility] [address] [id number] [address] [place] [address], [place] [address] Feb, [facility] [address] [id number] [address] [place] [address], [place] [address] Feb, [facility] [address] [id number] [address] [place] [address], [place] [address] Feb, [facility] [address] [id number] [address] [place] [address], [place] [address] Jan, [facility] [address] [id number] [address] [place] [address], [place] [address] Jan, [facility] [address] [id number] [address] [place] [address], [place] [address] Dec, [facility] [address] [id number] [address] [place] [address], [place] [address] Dec, [facility] [address] [id number] [address] [place] [address], [place] [address] Dec, [facility] [address] [id number] [address] [place] [address], [place] [address] Dec, [facility] [address] [id number] [address] [place] [address], [place] [address] Oct, [facility] [address] [id number] [address] [place] [id number] Oct, [facility] [address] [id number] [address] [place] [id number] Oct, [facility] [address] [id number] [address] [place] [address], [place] [address] Oct, [facility] [address] [id number] [address] [place] [address], [place] [address] Sep, [facility] [address] [id number] [address] [place] [id number] Sep, [facility] [address] [id number] [address] [place] [address], [place] [address] Aug, [facility] [address] [id number] [address] [place] [address], [place] [address] Aug, [facility] [address] [id number] [address] [place] [address], [place] [address] Aug, [facility] [address] [id number] [address] [place] [address], [place] [address] Aug, [facility] [address] [id number] [address] [place] [address], [place] [address] July, [facility] [address] [id number] [address] [place] [address], [place] [address] Jun, [facility] [address] [id number] [address] [place] [address], [place] [address] May, [facility] [address] [id number] [address] [place] [address], [place] [address] May, [facility] [address] [id number] [address] [place] [address], [place] [address] May, [facility] [address] [id number] [address] [place] [address], [place] [address] May, [facility] [address] [id number] [address] [place] [address], [place] [address] May, [facility] [address] [id number] [address] [place] [address], [place] [address] Apr, [facility] [address] [id number] [address] [place] [address], [place] [address] Apr, [facility] [address] [id number] [address] [place] [address], [place] [address] Apr, [facility] [address] [id number] [address] [place] [address], [place] [address] Apr, [facility] [address] [id number] [address] [place] [address] [place] [address] Mar, [facility] [address] [id number] [address] [place] [address], [place] [address] Mar, [facility] [address] [id number] [address] [place] [address], [place] [address] Mar, [facility] [address] [id number] [address] [place] [address], [place] [address] Mar, [facility] [address] [id number] [address] [place] [address], [place] [address] Jan, [facility] [address] [id number] [address] [place] [address], [place] [address] Jan, [facility] [address] [id number] [address] [place] [address], [place] [address] Jan, [facility] [address] [id number] [address] [place] [address], [place] [address] Jan, [facility] [address] [id number] [address] [place] [address], [place] [address] Jan, [facility] [address] [id number] [address] [place] [address], [place] [address] Jan, [facility] [address] [id number] [address] [place] [address], [place] [phone] Jan, [facility] [address] [id number] [address] [place] [address], [place] [id number] Jan, [facility] [address] [id number] [address] [place] [address], [place] [id number] Jan, [facility] [address] [id number] [address] [place] [address], [place] [phone] Jan, [facility] [address] [id number] [address] [place] [address], [place] [phone] Dec, [facility] [address] [id number] [address] [place] [address], [place] [phone] Dec, [facility] [place] [address] [id number] [address] [place] [id number] Dec, [facility] [place] [address] [id number] [address] [place] [phone] Nov, [facility] [place] [address] [id number] [address] [place] [phone] Nov, [facility] [place] [address] [id number] [address] [place] [phone] Nov, [facility] [place] [address] [id number] [address] [place] [phone] Nov, [facility] [place] [address] [id number] [address] [place] [phone] Oct, [facility] [place] [address] [facility] [id number] [address] [place] [phone] Oct, IMMUNIZATIONS No Known Immunizations SOCIAL HISTORY [...] surgeries Hospitalization History jeny 06/2018 Hospitalization History [facility]- 07/2018 Hospitalization History [facility] - heart attack and rehab -03/02/2019
--- OUTSIDE RECORDS SUMMARY | 2019-08-21 20:58 | XMS REPORT ---
Author Author Sarah AMADO Organization [facility] Address [address] [place] [address] Care Team Providers Care Superintendent Commissary Name Role Phone GEE AMADO Unavailable PROBLEMS Type Condition ICD9-CM Code FZM18-RS Code Onset Dates Condition S tatus SNOMED Code Problem Coronary artery disease invo lving [place] coronary artery of [place] heart without angina pectoris I25.10 Active 1641 [id number] Problem Hyperlipidemia, unspecified hyperlipidemia type E7 8.5 Active 71828947 Problem Paresthesias in right hand R20.2 Act chidi 813839179 Problem Neck pain M54.2 Active 23139529 Problem GERD (gastroesophageal reflux disease) K21.9 Active 100274217 Problem Essential hypertension I10 Active 10921575 Problem Chronic kidney disease, unspecified CKD stage N18. 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 297410053 Problem Morbid (severe) obesity due to excess calories E66 .01 Active 193792504 Problem Chronic kidney disease, stage 3 (moderate) N18.3 Active 912945881 Problem Other cirrhosis of liver K74.69 Activ e 10062457 Problem Chronic diastolic (congestive) heart failure I50.3 2 Active 487088232 ALLERGIES No Information ENCOUNTERS Encounter Location Date Diagnosis [address] [id number] [address] July, [address] [id number] [address] Jun, [address] [id number] [place] [address] Jun, Chronic diastolic (congestiv e) heart failure I50.32 ; COPD (chronic obstructive pulmonary disease) J44.9 ; Dyspnea R06.00 and Weakness R53.[address] [place] [address] Jun, [facility] [address] [facility] [id number] [address] [place] [address] Jun, [facility] [address] [facility] [id number] [address] [place] [phone] Jun, [place] [address] [address] [facility] [id number] [address] [place] [address] May, [place] [address] [address] [facility] [id number] [address] [place] [id number] May, Other cirrhosis of liver K74 .69 and Type 2 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, unspecified whether ferry terminal supervisor insulin use E11.40 [facility] [address] [facility] [id number] [address] [place] [address] 16 May, 2019 [place] [address] [address] [facility] [id number] [address] [place] [id number] 12 May, 2019 Type 2 diabetes mellitus wit h other specified complication E11.69 ; Other cirrhosis of liver K74.69 ; Chronic kidney disease, stage 3 (moderate) N18.3 ; Chronic diastolic (congestive) heart failure I50.32 ; Paroxysmal atrial fibrillation I48.0 ; Morbid (severe) obesity due to excess calories E66.01 and Hyperlipidemia, unspecified hyperlipidemia type E78.5 [place] [address] [facility] [id number] [address] [place] [address] May, [address] [id number] [place] [address] Apr, [facility] [address] [facility] [id number] [address] [place] [address] Mar, [facility] [address] [id number] [address] [place] [address] Mar, [facility] [address] [id number] [address] [place] [phone] Mar, [facility] [address] [id number] [address] [place] [id number] Mar, [facility] [address] [id number] [address] [place] [phone] Mar, [address] 340[address] [id number] [address] Mar, [address] 340[address] [id number] [address] Mar, [facility] [address] [id number] [address] [place] [phone] Mar, [facility] [address] [id number] [address] [place] [address] Mar, [facility] [address] [id number] [address] [place] [id number] Mar, [facility] [address] [id number] [address] [place] [id number] Feb, [facility] [address] [id number] [address] [place] [id number] Feb, Coronary artery disease invo lving [place] coronary artery of [place] heart without angina pectoris I25.10 ; Chronic kidney disease, stage 3 (moderate) N18.3 and Morbid (severe) obesity due to excess calories E66.01 [facility] [address] [id number] [address] [place] [phone] Feb, [facility] [address] [id number] [address] [place] [id number] Feb, [facility] [address] [id number] [address] [place] [id number] Feb, [facility] [address] [id number] [address] [place] [address], [place] [address] Jan, [facility] [address] [id number] [address] [place] [address], [place] [address] Jan, [facility] [address] [id number] [address] [place] [address], [place] [address] Jan, [facility] [address] [id number] [address] [place] [address], [place] [address] Jan, [facility] [address] [id number] [address] [place] [address], [place] [address] Jan, [facility] [address] [id number] [address] [place] [address], [place] [address] Jan, [facility] [address] [id number] [address] [place] [address], [place] [address] Dec, [facility] [address] [place] [address] 340[address] [id number] [address] Dec, [facility] [address] [id number] [address] [place] [address], [place] [address] Nov, [facility] [address] [id number] [address] [place] [address], [place] [address] Nov, [facility] [address] [id number] [address] [place] [address], [place] [address] Nov, [facility] [address] [id number] [address] [place] [address], [place] [address] Nov, [facility] [address] [place] [address] [address] [id number] [place] [address] Oct, [facility] [address] [id number] [address] [place] [address], [place] [address] Oct, [facility] [address] [place], [place] [id number] 340[address] [id number] [place] [address] Sep, [facility] [address] [id number] [address] [place] [phone] Sep, [facility] [address] [id number] [address] [place] [address] 14 Aug, 2018 Type 2 diabetes mellitus wit h unspecified complications E11.8 ; jail 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 and Obesity (BMI 30-39.9) E66.[address] 340[address] [id number] [place] [address] 10 Aug, 2018 Type 2 diabetes mellitus wit hout complications E11.[address] [id number] [place] [address] 07 Aug, 2018 Type 2 diabetes mellitus wit hout complications E11.9 [facility] [address] [id number] [address] [place] [phone] Aug, [address] [place] [id number] [address] July, jail 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 ins ulin Z79.4 and Type 2 diabetes mellitus with unspecified complications E11.[address] 340[address] [id number] [place] [address] July, Screening mammogram, encount er for Z12.31 [facility] [address] [facility] [id number] [address] [place] [address] July, [facility] [address] [facility] [id number] [address] [place] [address] July, Paroxysmal atrial fibrillati on I48.0 and Coronary artery disease involving [place] coronary artery of [place] heart without angina pectoris I25.10 [facility] [address] [id number] [address] [place] [address] Jun, [facility] [address] [id number] [address] [place] [phone] Jun, [facility] [address] [facility] [id number] [address] [place] [phone] May, [facility] [address] [id number] [address] [place] [address] May, Type 2 diabetes mellitus wit h unspecified complications E11.8 ; 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 ; Leg cramps R25.2 ; Essential hypertension I10 and Routine adult health maintenance Z00.00 [facility] [address] [facility] [id number] [address] [place] [address] 07 Apr, 2018 [facility] [address] [place] [id number] [address] [place] [address] Apr, [facility] [address] [facility] [id number] [address] [place] [address] Mar, Type 2 diabetes mellitus wit hout complications E11.9 [place] [address] [address] [place] [id number] [address] [place] [address] Mar, Type 2 diabetes mellitus wit hout complications E11.9 [place] [address] [address] Mar, Type 2 diabetes mellitus wit hout complications E11.9 [place] [address] [address] [place] [id number] [address] [place] [address] Feb, Essential (primary) hyperten sofie I10 [place] [address] [address] [place] [id number] [address] [place] [address] Feb, [facility] [address] [place] [id number] [address] [place] [address] Jan, Type 2 diabetes mellitus wit hout complications E11.9 [facility] [address] [place] [id number] [address] [place] [id number] Dec, [facility] [address] [place] [id number] [place] [address] Dec, Type 2 diabetes mellitus wit h diabetic neuropathy, unspecified E11.40 ; jail 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 and Chronic kidney disease, unspecified CKD stage N18.9 [facility] [address] [place] [id number] [address] [place] [address] Dec, Type 2 diabetes mellitus wit hout complications E11.9 [facility] [address] [id number] [address] [place] [id number] 10 Dec, 2017 [facility] [address] [facility] [id number] [address] [place] [id number] 09 Dec, 2017 Type 2 diabetes mellitus wit hout complications E11.9 [facility] [address] [facility] [id number] [address] [place] [id number] 08 Dec, 2017 [facility] [address] [id number] [address] [place] [phone] Oct, [facility] [address] [facility] [id number] [address] [place] [address] Sep, [facility] [address] [facility] [id number] [address] [place] [phone] Aug, [facility] [address] [facility] [id number] [address] [place] [id number] Aug, Exposure to hepatitis C Z20. 5 and Routine adult health maintenance Z00.00 [facility] [address] [facility] [id number] [address] [place] [address] Aug, Exposure to hepatitis C Z20. 5 [facility] [address] [facility] [id number] [address] [place] [id number] Aug, Medicare annual wellness vis it, initial Z00.00 ; Coronary artery disease involving [place] coronary artery of [place] heart without angina pectoris I25.10 ; Hyperlipidemia, unspecified hyperlipidemia type E78.5 ; Essential hypertension I10 ; GERD (gastroesophageal reflux disease) K21.9 ; Routine adult health maintenance Z00.00 ; Encounter for immunization Z23 ; Type 2 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, unspecified E11.40 and jail 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 [facility] [address] [facility] [id number] [address] [place] [phone] July, Type 2 diabetes mellitus wit hout complications E11.9 and Type 2 diabetes mellitus without complications E11.9 [facility] [address] [id number] [address] [place] [address] July, [facility] [address] [id number] [address] [place] [id number] July, [facility] [address] [id number] [address] [place] [id number] Mar, Type 2 diabetes mellitus wit hout complications E11.9 [facility] [address] [id number] [address] [place] [id number] Mar, [facility] [address] [id number] [address] [place] [phone] Feb, Type 2 diabetes mellitus wit hout complications E11.9 [facility] [address] [facility] [id number] [address] [place] [id number] Jan, Type 2 diabetes mellitus wit hout complications E11.9 [facility] [address] [facility] [id number] [address] [place] [id number] Jan, Type 2 diabetes mellitus wit hout complications E11.9 [facility] [address] [id number] [address] [place] [phone] Nov, [facility] [address] [id number] [address] [place] [phone] Oct, Type 2 diabetes mellitus wit hout complications E11.9 [facility] [address] [id number] [address] [place] [id number] Oct, Type 2 diabetes mellitus wit hout complications E11.9 ; Essential hypertension I10 and Neck pain M54.2 [facility] [address] [id number] [address] [place] [phone] Sep, [facility] [address] [facility] [id number] [address] [place] [id number] Aug, Type 2 diabetes mellitus wit hout complications E11.9 [facility] [address] [facility] [id number] [address] [place] [phone] Jun, Type 2 diabetes mellitus wit hout complications E11.9 ; Neck pain M54.2 and Essential hypertension I10 [facility] [address] [id number] [address] [place] [phone] 17 Jun, 2016 [facility] [address] [id number] [address] [place] [phone] 14 Jun, 2016 [facility] [address] [id number] [address] [place] [id number] 10 Jun, 2016 GERD (gastroesophageal reflu x disease) K21.9 and Type 2 diabetes mellitus without complications E11.9 [facility] [address] [id number] [address] [place] [id number] 10 Mar, 2016 Paresthesias in right hand R 20.2 [facility] [address] [id number] [address] [place] [id number] Feb, Type 2 diabetes mellitus wit hout complications E11.9 [facility] [address] [id number] [address] [place] [id number] Feb, Encounter for dental examina tion Z01.20 [facility] [address] [id number] [address] [place] [id number] 09 Feb, 2016 Type 2 diabetes mellitus wit hout complications E11.9 and Neck pain M54.2 [facility] [address] [id number] [address] [place] [phone] Feb, Type 2 diabetes mellitus wit hout complications E11.9 [facility] [address] [id number] [address] [place] [id number] Jan, Dental examination Z01.20 [facility] [address] [id number] [address] [place] [id number] Jan, [facility] [address] [id number] [address] [place] [phone] Jan, [facility] [address] [id number] [address] [place] [id number] Dec, Dental caries K02.9 [facility] [address] [id number] [address] [place] [id number] Nov, [facility] [address] [id number] [address] [place] [id number] Nov, [facility] [address] [id number] [address] [place] [id number] Oct, Type 2 diabetes mellitus wit hout complications E11.9 ; Neck pain M54.2 and Essential hypertension I10 [facility] [address] [id number] [address] [place] [id number] Oct, [facility] [address] [id number] [address] [place] [id number] Oct, Dental examination Z01.20 [facility] [address] [id number] [address] [place] [id number] Sep, [facility] [address] [id number] [address] [place] [id number] Sep, [facility] [address] [id number] [address] [place] [id number] Aug, Essential (primary) hyperten sofie I10 [facility] [address] [id number] [address] [place] [phone] Aug, [facility] [address] [id number] [address] [place] [id number] Aug, [facility] [address] [id number] [address] [place] [phone] July, Essential (primary) hyperten sofie I10 [facility] [address] [id number] [address] [place] [id number] July, Essential (primary) hyperten sofie I10 and Type 2 diabetes mellitus without complications E11.9 [facility] [address] [id number] [address] [place] [id number] July, [facility] [address] [id number] [address] [place] [id number] 14 Jun, 2015 GERD (gastroesophageal reflu x disease) K21.9 [facility] [address] [facility] [id number] [address] [place] [id number] Jun, GERD (gastroesophageal reflu x disease) K21.9 [facility] [address] [facility] [id number] [address] [place] [phone] 08 Jun, 2015 [facility] [address] [place] [id number] [place] [address] Jun, Neuropathy G62.9 [facility] [address] [place] [id number] [address] [place] [id number] May, Essential (primary) hyperten sofie I10 [facility] [address] [facility] [id number] [address] [place] [phone] 23 May, 2015 Bronchitis J40 [facility] [address] [id number] 15 May, 2015 Type 2 diabetes mellitus wit hout complications E11.9 and Essential (primary) hypertension I10 [facility] [address] [place] [id number] [address] [place] [address] May, [facility] [address] [address] May, GERD (gastroesophageal reflu x disease) K21.9 [facility] [id number] [place] [address] 25 Apr, 2015 Other and unspecified hyperl ipidemia 272.4 ; Unspecified essential hypertension 401.9 ; Type 2 diabetes mellitus without complications E11.9 ; Neck pain M54.2 and Paresthesias in right hand R20.2 [facility] [address] [place] [id number] [address] [place] [id number] 11 Apr, 2015 [facility] [address] [place] [id number] [address] [place] [id number] 10 Apr, 2015 Neuropathy G62.9 [facility] [address] [place] [id number] [address] [place] [phone] Mar, [facility] [address] [facility] [id number] [address] [place] [id number] Feb, [facility] [address] [facility] [id number] [address] [place] [phone] Jan, [facility] [address] [place] [id number] [place] [phone] Dec, [facility] [address] [place] [id number] [place] [address] Dec, Type 2 diabetes mellitus wit hout complications E11.9 ; Encounter for immunization Z23 and Neck pain M54.2 [facility] [address] [place] [id number] [address] [place] [phone] Dec, [facility] [address] [address] Nov, [facility] [address] [place] [id number] [place] [phone] Nov, [facility] [address] [id number] Oct, [facility] [address] [place] [id number] [address] [place] [id number] Oct, [facility] [address] [place] [id number] Sep, [facility] [address] [place] [id number] [address] [place] [address] Sep, Coronary atherosclerosis of unspecified type of vessel, [place] or graft 414.00 ; Diabetes mellitus without mention of complication, type II or unspecified type, not stated as uncontrolled 250.00 ; Hyperlipidemia 272.4 and HTN (hypertension) 401.9 [facility] [address] [place] [id number] [address] [place] [id number] Aug, [facility] [address] [place] [id number] [address] [place] [id number] July, [facility] [address] [id number] [address] [place] [address], [place] [id number] Jun, [facility] [address] [id number] [address] [place] [address], [place] [id number] Jun, [facility] [address] [id number] [address] [place] [address], [place] [id number] May, [facility] [address] [id number] [address] [place] [address], [place] [id number] May, [facility] [address] [id number] [address] [place] [address], [place] [address] May, [facility] [address] [id number] [address] [place] [address], [place] [address] May, [facility] [address] [id number] [address] [place] [address], [place] [address] Apr, [facility] [address] [id number] [address] [place] [address], [place] [id number] Apr, [facility] [address] [id number] [address] [place] [address], [place] [id number] Apr, [facility] [address] [id number] [address] [place] [address], [place] [id number] Apr, [facility] [address] [id number] [address] [place] [address], [place] [id number] Apr, [facility] [address] [id number] [address] [place] [id number] Apr, [facility] [address] [id number] [address] [place] [id number] Apr, [facility] [address] [id number] [address] [place] [id number] Apr, [facility] [address] [id number] [address] [place] [address] Mar, [facility] [address] [id number] [address] [place] [address], [place] [address] Mar, [facility] [address] [id number] [address] [place] [address], [place] [address] Mar, [facility] [address] [id number] [address] [place] [address], [place] [address] Mar, [facility] [address] [id number] [address] [place] [address], [place] [address] Mar, [facility] [address] [id number] [address] [place] [address], [place] [address] Mar, [facility] [address] [id number] [address] [place] [address], [place] [address] Mar, [facility] [address] [id number] [address] [place] [address], [place] [address] Mar, [facility] [address] [id number] [address] [place] [address], [place] [address] Feb, [facility] [address] [id number] [address] [place] [address], [place] [address] Feb, [facility] [address] [id number] [address] [place] [address], [place] [address] Feb, [facility] [address] [id number] [address] [place] [address], [place] [address] Feb, [facility] [address] [id number] [address] [place] [address], [place] [address] Feb, [facility] [address] [id number] [address] [place] [address], [place] [address] Feb, [facility] [address] [id number] [address] [place] [address], [place] [address] Feb, [facility] [address] [id number] [address] [place] [address], [place] [address] Feb, [facility] [address] [id number] [address] [place] [address], [place] [address] Feb, [facility] [address] [id number] [address] [place] [address], [place] [address] Feb, [facility] [address] [id number] [address] [place] [address], [place] [address] Jan, [facility] [address] [id number] [address] [place] [address], [place] [address] Jan, [facility] [address] [id number] [address] [place] [address], [place] [address] Dec, [facility] [address] [id number] [address] [place] [address], [place] [address] Dec, [facility] [address] [id number] [address] [place] [address], [place] [address] Dec, [facility] [address] [id number] [address] [place] [address], [place] [address] Dec, [facility] [address] [id number] [address] [place] [address], [place] [address] Nov, [facility] [address] [id number] [address] [place] [address], [place] [address] Nov, [facility] [address] [id number] [address] [place] [address], [place] [address] Nov, [facility] [address] [id number] [address] [place] [address], [place] [address] Nov, [facility] [address] [id number] [address] [place] [address], [place] [address] Oct, [facility] [address] [id number] [address] [place] [address], [place] [address] Oct, [facility] [address] [id number] [address] [place] [address], [place] [address] Oct, [facility] [address] [id number] [address] [place] [address], [place] [address] Oct, [facility] [address] [id number] [address] [place] [address], [place] [address] Oct, [facility] [address] [id number] [address] [place] [address], [place] [address] Sep, [facility] [address] [id number] [address] [place] [address], [place] [address] Sep, 2013 [facility] [address] [id number] [address] [place] [address], [place] [address] Sep, 2013 [facility] [address] [id number] [address] [place] [address], [place] [address] Sep, [facility] [address] [id number] [address] [place] [address], [place] [address] Sep, [facility] [address] [id number] [address] [place] [address], [place] [address] Sep, [facility] [address] [id number] [address] [place] [address], [place] [address] Aug, [facility] [address] [id number] [address] [place] [address], [place] [address] Aug, [facility] [address] [id number] [address] [place] [address], [place] [address] Aug, [facility] [address] [id number] [address] [place] [address], [place] [address] Aug, [facility] [address] [id number] [address] [place] [address], [place] [address] Aug, [facility] [address] [id number] [address] [place] [address], [place] [address] Aug, [facility] [address] [id number] [address] [place] [address], [place] [address] July, [facility] [address] [id number] [address] [place] [address], [place] [address] July, [facility] [address] [id number] [address] [place] [address], [place] [address] Jun, [facility] [address] [id number] [address] [place] [address], [place] [address] 15 Jun, 2013 [facility] [address] [id number] [address] [place] [address], [place] [address] May, [facility] [address] [id number] [address] [place] [address], [place] [address] May, [facility] [address] [id number] [address] [place] [address], [place] [address] May, [facility] [address] [id number] [address] [place] [address], [place] [address] May, [facility] [address] [id number] [address] [place] [address], [place] [address] 10 Apr, 2013 [facility] [address] [id number] [address] [place] [address], [place] [address] 10 Apr, 2013 [facility] [address] [id number] [address] [place] [address], [place] [address] 10 Apr, 2013 [facility] [address] [id number] [address] [place] [address], [place] [address] 10 Apr, 2013 [facility] [address] [id number] [address] [place] [address], [place] [address] 03 Apr, 2013 [facility] [address] [id number] [address] [place] [address], [place] [address] Apr, [facility] [address] [id number] [address] [place] [address], [place] [address] Feb, [facility] [address] [id number] [address] [place] [address], [place] [address] Feb, [facility] [address] [id number] [address] [place] [address], [place] [address] Feb, [facility] [address] [id number] [address] [place] [address], [place] [address] Feb, [facility] [address] [id number] [address] [place] [address], [place] [address] Jan, [facility] [address] [id number] [address] [place] [address], [place] [address] Jan, [facility] [address] [id number] [address] [place] [address], [place] [address] Dec, [facility] [address] [id number] [address] [place] [address], [place] [address] Dec, [facility] [address] [id number] [address] [place] [address], [place] [address] Dec, [facility] [address] [id number] [address] [place] [address], [place] [address] Dec, [facility] [address] [id number] [address] [place] [address], [place] [address] Oct, [facility] [address] [id number] [address] [place] [id number] Oct, [facility] [address] [id number] [address] [place] [id number] Oct, [facility] [address] [id number] [address] [place] [address], [place] [address] Oct, [facility] [address] [id number] [address] [place] [address], [place] [address] Sep, [facility] [address] [id number] [address] [place] [address], [place] [address] Sep, [facility] [address] [id number] [address] [place] [address], [place] [address] Aug, [facility] [address] [id number] [address] [place] [address], [place] [address] Aug, [facility] [address] [id number] [address] [place] [address], [place] [address] Aug, [facility] [address] [id number] [address] [place] [address], [place] [address] Aug, [facility] [address] [id number] [address] [place] [address], [place] [address] July, [facility] [address] [id number] [address] [place] [address], [place] [address] 16 Jun, 2012 [facility] [address] [id number] [address] [place] [address], [place] [address] May, [facility] [address] [id number] [address] [place] [address], [place] [address] May, [facility] [address] [id number] [address] [place] [address], [place] [address] May, [facility] [address] [id number] [address] [place] [address], [place] [address] May, [facility] [address] [id number] [address] [place] [address], [place] [address] May, [facility] [address] [id number] [address] [place] [address], [place] [address] Apr, [facility] [address] [id number] [address] [place] [address], [place] [address] Apr, [facility] [address] [id number] [address] [place] [address], [place] [address] Apr, [facility] [address] [id number] [address] [place] [address], [place] [address] Apr, [facility] [address] [id number] [address] [place] [address], [place] [address] Mar, [facility] [address] [id number] [address] [place] [address], [place] [address] Mar, [facility] [address] [id number] [address] [place] [address], [place] [address] Mar, [facility] [address] [id number] [address] [place] [address], [place] [address] Mar, [facility] [address] [id number] [address] [place] [address], [place] [address] 16 Jan, 2012 [facility] [address] [id number] [address] [place] [address], [place] [address] 16 Jan, 2012 [facility] [address] [id number] [address] [place] [address], [place] [address] 15 Jan, 2012 [facility] [address] [id number] [address] [place] [address], [place] [address] 15 Jan, 2012 [facility] [address] [id number] [address] [place] [address], [place] [address] Jan, [facility] [address] [id number] [address] [place] [address], [place] [address] Jan, [facility] [address] [id number] [address] [place] [address], [place] [address] Jan, [facility] [address] [id number] [address] [place] [address], [place] [address] Jan, [facility] [address] [id number] [address] [place] [address], [place] [address] Jan, [facility] [address] [id number] [address] [place] [address], [place] [address] Jan, [facility] [address] [id number] [address] [place] [address], [place] [address] Dec, [facility] [address] [id number] [address] [place] [address], [place] [address] Dec, [facility] [address] [id number] [address] [place] [address], [place] [address] Dec, [facility] [address] [id number] [address] [place] [address], [place] [address] 27 Nov, 2011 [facility] [address] [id number] [address] [place] [address], [place] [address] 26 Nov, 2011 [facility] [address] [id number] [address] [place] [address], [place] [address] 12 Nov, 2011 [facility] [address] [facility] [id number] [address] [address] Nov, [facility] [address] [facility] [id number] [address] [place] [address] Oct, [facility] [address] [facility] [id number] [address] [place] [address] Oct, IMMUNIZATIONS No Known Immunizations SOCIAL HISTORY [...] surgeries Hospitalization History [facility] 06/2018 Hospitalization History [facility]- 07/2018 Hospital[facility] - heart attack and rehab -03/02/2019
[2019-08-21] MEDS ORDERED: NON-FORMULARY MEDICATION 1 EA EA (Magnesium Oxide (Magnesium) 400 MG) PO SCH (21:00)
[2019-08-21] MEDS: GABAPENTIN 600 MG (NEURONTIN) TAB PO SCH (21:01)
[2019-08-21] MEDS: PRIMIDONE 50 MG TAB (MYSOLINE) PO SCH (21:01)
[2019-08-21] MEDS: FENOFIBRATE 134 MG (LOFIBRA) CAPSULE PO SCH (21:01)
[2019-08-21] MEDS: MAGNESIUM OXIDE (MAG-OX)400 MG TAB PO SCH (21:01)
[2019-08-21] MEDS: PANTOPRAZOLE 40 MG (PROTONIX) TAB PO SCH (21:01)
[2019-08-21] MEDS: SUCRALFATE 1 GM (CARAFATE) TAB PO SCH (21:01)
[2019-08-21] MEDS: SENNA W/DOCUSATE (SENOKOT S) TABLET PO SCH (21:01)
--- OUTSIDE RECORDS SUMMARY | 2019-08-21 21:09 | XMS REPORT | Continuity of Care Document ---
Demographics Preferred Language Unknown Marital Status Unknown Jew Affiliation Unknown Race Unknown Ethnic Group Unknown Author Organization Unknown Address Unknown Phone Unavailable Allergies Active Description Code Type Severity Reaction Onset Reported/Identified Relationship to Patient Clinical Status Yes MORPHINE UNKNOWN UNKNOWN Yes No Known Drug Allergies [id number] Drug Allergy Unknown N/A 11/13/2011 Yes morphine [id number] Drug Allergy Severe hallucination 07/25/2019 Medications Medication Packaging Start Date St op Date Route Dosage Sig HYDROCODONE/APAP 10/325 TAB 10 /325 (ABBY-TAB 10/325) TAB 07/26/2019 08/25/2019 PRN TID IRON SUCROSE INJECTION INJ 20 MG/CC (VENOF ER) MG 07/26/2019 07/28/2019 Q48H&1600 SUCRALFATE TAB 1 GM (CARAFATE) GM 07/26/2019 08/25/2019 ACHS&0630,1130,1630,2100 INSULIN ASPART PEN INJ 100 U NITS/CC (NOVOLOG FLEXPEN) 07/26/2019 08/25/2019 ACHS&0630,1130,1630,2100 METFORMIN XR TAB 500 MG (GLUCOPHAGE XR) MG 07/26/2019 08/25/2019 BID&0700,1730 ALBUTEROL INHALER MDI 8 GM (VENTOLIN HFA) PUFF(S) 07/26/2019 08/25/2019 PRN QID PANTOPRAZOLE TAB 40 MG (PROTONIX) MG 07/26/2019 08/25/2019 BID&0800,2000 GABAPENTIN CAP 300 MG (NEURONTIN) MG 07/26/2019 08/25/2019 BID&0800,2000 SIMVASTATIN TAB 40 MG (ZOCOR) MG 07/26/2019 08/24/2019 QPM&2000 CYCLOBENZAPRINE TAB 10 MG (FLEXERIL) MG 07/26/2019 08/25/2019 PRN BID IRON SUCROSE INJECTION INJ 20 MG/CC (VENOF ER) MG 07/26/2019 07/28/2019 Q48H&2000 IPRATROPIUM/ALBUTEROL INH SO LN (DUO-NEB INH SOLN) MLS 07/26/2019 08/25/2019 PRN BID MAGNESIUM OXIDE TAB 400 MG (MAG-OX) MG 07/26/2019 08/24/2019 QHS&2100 DOXAZOSIN TAB 2 MG (CARDURA) MG 07/26/2019 08/24/2019 QHS&2100 FENOFIBRATE TAB 160 MG (TRICOR) MG 07/26/2019 08/24/2019 QHS&2100 SENNA CONC/DOCUSATE TAB (SENOKOT S) TAB 07/26/2019 08/24/2019 QHS&2100 PRIMIDONE TAB 250 MG (MYSOLINE) MG 07/26/2019 08/24/2019 QHS&2100 INSULIN DETEMIR PEN INJ 100 UNITS/CC (LEVEMIR FLEXPEN) UNITS 07/26/2019 08/24/2019 QHS&2100 ASPIRIN 81MG CHEWABLE TAB 81 MG (BABY ASPI RIN) MG 07/27/2019 08/25/2019 Daily&0900 ISOSORBIDE MONONITRATE TAB 60 MG (IMDUR) MG 07/27/2019 08/25/2019 Daily&0900 AMLODIPINE TAB 10 MG (NORVASC) MG 07/27/2019 08/25/2019 Daily&0900 SPIRONOLACTONE TAB 25 MG (ALDACTONE) MG 07/27/2019 08/25/2019 Daily&0900 TORSEMIDE TAB 20 MG (DEMADEX) MG 07/27/2019 08/25/2019 Daily&0900 MultiVits (Thera M Plus) (mu ydgwam-tnnn-wgaxofc) oral tablet TAB 07/27/2019 08/25/2019 Daily&0900 FISH OIL CAP CAP 1000 MG (OMEGA 3) MG 07/27/2019 08/25/2019 Daily&0900 CALCIUM 600MG W VIT D TAB 60 0 MG (OSCAL/W VIT D) MG 07/27/2019 08/25/2019 Daily&0900 METOPROLOL XR TAB 25 MG (TOPROL XL) MG 07/27/2019 08/25/2019 Daily&0900 INSULIN DETEMIR PEN INJ 100 UNITS/CC (LEVEMIR FLEXPEN) UNITS 07/27/2019 07/27/2019 ONCE&0900 INSULIN ASPART PEN INJ 100 U NITS/CC (NOVOLOG FLEXPEN) Dr. Lopez 07/27/2019 08/26/2019 ACHS INSULIN ASPART PEN INJ 100 U NITS/CC (NOVOLOG FLEXPEN) 07/27/2019 08/26/2019 ACHS&0630,1130,1630,2100 INSULIN DETEMIR PEN INJ 100 UNITS/CC (LEVEMIR FLEXPEN) UNITS 07/27/2019 08/25/2019 QHS&2100 IRON SUCROSE INJECTION INJ 20 MG/CC (VENOF ER) MG 07/28/2019 07/29/2019 Daily&0900 INSULIN DETEMIR PEN INJ 100 UNITS/CC (LEVEMIR FLEXPEN) UNITS 07/28/2019 08/26/2019 QHS&2100 Problems Date Dx Coded Attending Type Code [...] K 786.50 UNSPECIFIED CHEST PAIN 11/13/2011 WADE DO JUSTICE K 786.50 UNSPECIFIED CHEST PAIN 11/13/2011 MELINDA BREEN VAN A 786.50 UNSPECIFIED CHEST PAIN 11/13/2011 IBAN DAVALOS DDS 786.50 UNSPECIFIED CHEST PAIN 11/13/2011 GEE AMADO MD 786.5 0 UNSPECIFIED CHEST PAIN 11/13/2011 GEE AMADO MD 786.5 0 UNSPECIFIED CHEST PAIN 11/13/2011 LALITO TERRAZAS APRN L 786 .50 UNSPECIFIED CHEST PAIN 11/13/2011 GEE AMADO MD 786.5 0 UNSPECIFIED CHEST PAIN 11/13/2011 GEE AMADO MD 786.5 0 UNSPECIFIED CHEST PAIN 11/13/2011 GEE AMADO MD 786.5 0 UNSPECIFIED CHEST PAIN 11/13/2011 GEE AMADO MD 786.5 0 UNSPECIFIED CHEST PAIN 11/13/2011 GEE AMADO MD 786.5 0 UNSPECIFIED CHEST PAIN 11/16/2011 Ot 250.02 GIA OMALLEY WO COMPL, TYPE II OR UNSPEC TY 11/16/2011 Ot 272.4 HYPE RLIPIDEMIA NEC/NOS 11/16/2011 Ot 275.2 DIS MAGNESIUM METABOLISM 11/16/2011 Ot 276.1 HYPO SMOLALITY 11/16/2011 Ot 401.9 HYPE RTENSION NOS 11/16/2011 Ot 411.1 INTE RMED CORONARY SYND 11/16/2011 Ot 414.01 COR ONARY ATHEROSCLEROSIS OF [place] CORON 11/16/2011 Ot 530.81 ESO PHAGEAL REFLUX [...] K 414.00 CAD 12/16/2011 WHITE DDS, IBAN D [...] K 414.00 CAD 12/16/2011 VAN LAWRENCE APRN A 250.02 DIABETES II UNCONTROLLED (UNCOMPLICATED) 12/16/2011 MELINDA MAILHOUSE OPERATOR, VAN A 40 1.9 HYPERTENSION, UNSPECIFIED ESSENTIAL 12/16/2011 MELINDA MAILHOUSE OPERATOR, VAN A 414.00 CAD 12/16/2011 WHITE DDS, [...] GEE AMADO MD 414.0 0 CAD 12/16/2011 NINI MAILHOUSE OPERATOR, LALITO L 250 .02 DIABETES II UNCONTROLLED (UNCOMPLICATED) 12/16/2011 NINI BREEN LALITO L 401 .9 HYPERTENSION, UNSPECIFIED ESSENTIAL 12/16/2011 MADCarlos MAILHOUSE OPERATOR, LALITO L 414 .00 CAD 12/16/2011 GEE [...] DX (3 YRS AND ABOVE, IM) 01/14/2012 SUZANNE TERRAZAS APRNA L V04 .81 FLU DX (3 YRS [...] DO, JUSTICE K 272.4 HYPERLIPIDEMIA 04/13/2012 MELINDA MAILHOUSE OPERATOR, VAN A 27 2.4 HYPERLIPIDEMIA 04/13/2012 WHITE DDS, IBAN D 27 2.4 HYPERLIPIDEMIA 04/13/2012 GEE AMADO MD 272.4 HYPERLIPIDEMIA 04/13/2012 GEE AMADO MD 272.4 HYPERLIPIDEMIA 04/13/2012 LALITO TERRAZAS APRN 272 .4 HYPERLIPIDEMIA 04/13/2012 GEE AMADO MD [...] 0 DIABETES MELLITUS POORLY CONTROLLED 05/10/2012 WHITE LAKISHAS, JOELLE J 250.00 DIABETES MELLITUS POORLY CONTROLLED [...] MELLITUS POORLY CONTROLLED 05/10/2012 LALITO TERRAZAS APRN L 250 .00 DIABETES MELLITUS POORLY CONTROLLED 05/10/2012 GEE AMADO MD 250.0 0 DIABETES MELLITUS POORLY CONTROLLED 05/10/2012 GEE AMADO MD 250.0 0 DIABETES MELLITUS POORLY CONTROLLED 05/10/2012 GEE AMADO MD 250.0 0 DIABETES MELLITUS POORLY CONTROLLED 05/10/2012 GEE AMADO MD 250.0 0 DIABETES MELLITUS POORLY CONTROLLED 10/10/2012 357.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 01 CORONARY ATHEROSCLEROSIS OF [place] CORON 08/28/2013 BOOM MILLER MD Ot 786. [...] MD 338.2 9 OTHER CHRONIC PAIN 08/16/2014 SPIVEYTHADDEUS PA, VIVIANA K Ot 250.00 08/16/2014 SPIVEYTHADDEUS PA, VIVIANA K Ot 272.4 08/16/2014 SPIVEYTHADDEUS PA, VIVIANA K Ot 401.9 08/16/2014 JEFRY PA, VIVIANA K Ot 414.00 08/16/2014 SPIVEYTHADDEUS PA, VIVIANA K Ot 786.50 08/16/2014 VAN LAWRENCE APRN Ot V76.12 02/27/2015 SPIVEYDAVE PA, VIVIANA K Ot 250.00 02/27/2015 SPIVEY-CHECO PA, VIVIANA K Ot 272.4 02/27/2015 SPIVEYTHADDEUS PA, VIVIANA K Ot 401.9 02/27/2015 JEFRY PA, VIVIANA K Ot 414.00 02/27/2015 JEFRY FLOREZ, [...] HEART DISEASE WITHOUT HEART 03/13/2015 BOOM MILLER MD, Ot I25. 10 ATHSCL HEART DISEASE OF [place] CORONARY 03/13/2015 BOOM MILLER MD Ot R07. 89 OTHER CHEST PAIN 03/13/2015 BOOM MILLER MD, Ot Z68. 35 BODY MASS INDEX (BMI) 35.0-35.9, ADULT 03/13/2015 BOOM MILLER MD, Ot Z79. 4 FPC (CURRENT) USE OF INSULIN 03/13/2015 BOOM MILLER MD Ot Z79.899 OTHER PIT INSPECTOR (CURRENT) DRUG THERAPY 03/13/2015 BOOM MILLER MD, Ot Z98. 61 CORONARY ANGIOPLASTY STATUS 03/21/2015 BOOM MILLER MD Ot E78. 5 03/21/2015 BOOM MILLER MD Ot I10 03/21/2015 BOOM MILLER MD Ot I25. 10 03/21/2015 BOOM MILLER MD Ot R07. 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 08/09/2015 Ot I10 ESSENT IAL (PRIMARY) HYPERTENSION 08/09/2015 Ot I25.10 ATH SCL HEART DISEASE OF [place] CORONARY 08/12/2015 XANDER ESQUIVEL MD Ot M54.12 RADICULOPATHY, CERVICAL REGION 08/14/2015 XANDER ESQUIVEL MD Ot M54.12 RADICULOPATHY, CERVICAL REGION 08/14/2015 XANDER ESUQIVEL MD Ot Z98 .1 ARTHRODESIS STATUS 08/14/2015 XANDER ESQUIVEL MD Ot M54.12 RADICULOPATHY, CERVICAL REGION 08/14/2015 XANDER ESQUIVEL MD Ot Z98 .1 ARTHRODESIS STATUS 09/06/2015 Ot E78.5 HYPE RLIPIDEMIA, UNSPECIFIED 09/06/2015 Ot 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 09/06/2015 Ot I10 ESSENT IAL (PRIMARY) HYPERTENSION 09/06/2015 Ot I25.10 ATH SCL HEART DISEASE OF [place] CORONARY 09/11/2015 ILANA SANTAMARIA MD Ot M54.2 CERVICALGIA 09/11/2015 ILANA SANTAMARIA MD Ot M54.2 CERVICALGIA 09/11/2015 XANDER ESQUIVEL MD, Ot M54.12 RADICULOPATHY, CERVICAL REGION 09/11/2015 XANDER ESQUIVEL MD Ot Z98 .1 ARTHRODESIS STATUS 09/13/2015 ILANA SANTAMARIA MD Ot M48.0 2 SPINAL STENOSIS, CERVICAL REGION 09/13/2015 ILANA SANTMAARIA MD Ot M50.3 0 OTHER CERVICAL DISC [...] Ot 786.50 CHEST PAIN NOS 02/22/2017 MELINDA, VAN A MAILHOUSE OPERATOR Ot V76.12 OTH SCREEN MAMMO-MALIGN NEOPLASM OF [place] 02/22/2017 BOOM MILLER MD Ot E78. 5 HYPERLIPIDEMIA, UNSPECIFIED 02/22/2017 BOOM MILLER MD Ot I10 ESSENTIAL (PRIMARY) HYPERTENSION 02/22/2017 BOOM MILLER MD Ot I25. 10 ATHSCL HEART DISEASE OF [place] CORONARY 02/22/2017 BOOM MILLER MD Ot R07. 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 10 ATHSCL HEART DISEASE OF [place] CORONARY 03/06/2017 BOOM MILLER MD Ot Z79. 84 PIT INSPECTOR (CURRENT) USE OF ORAL HYPOGLYC 03/17/2017 BOOM [...] Ot I25. 10 ATHSCL HEART DISEASE OF [place] CORONARY 03/25/2017 BOOM MILLER MD Ot I48. 91 UNSPECIFIED ATRIAL FIBRILLATION 03/26/2017 BOOM MILLER MD Ot E78. 5 HYPERLIPIDEMIA, UNSPECIFIED 03/26/2017 BOOM MILLER MD Ot I10 ESSENTIAL (PRIMARY) HYPERTENSION 03/26/2017 BOOM MILLER MD Ot I25. 10 ATHSCL HEART DISEASE OF [place] CORONARY 03/26/2017 BOOM MILLER MD Ot I48. [...] Ot I25. 10 ATHSCL HEART DISEASE OF [place] CORONARY 04/01/2017 BOOM MILLER MD Ot I48. 91 UNSPECIFIED ATRIAL FIBRILLATION 04/01/2017 BOOM MILLER MD Ot R06. 83 SNORING 04/01/2017 BOOM MILLER MD Ot Z68. 35 BODY MASS INDEX (BMI) 35.0-35.9, ADULT 04/01/2017 BOOM MILLER MD Ot Z79. 4 FPC (CURRENT) USE OF INSULIN 04/01/2017 BOOM MILLER MD Ot Z79. 82 FPC (CURRENT) USE OF ASPIRIN 04/01/2017 BOOM MILLER MD Ot Z79.899 OTHER PIT INSPECTOR (CURRENT) DRUG THERAPY 04/01/2017 BOOM MILLER MD [...] Ot I25. 10 ATHSCL HEART DISEASE OF [place] CORONARY 04/02/2017 BOOM MILLER MD Ot R07. 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 10 ATHSCL HEART DISEASE OF [place] CORONARY 04/02/2017 BOOM MILLER MD Ot I48. 91 UNSPECIFIED ATRIAL FIBRILLATION 04/02/2017 BOOM MILLER MD Ot R06. 83 SNORING 04/02/2017 BOOM MILLER MD Ot Z68. 35 BODY MASS INDEX (BMI) 35.0-35.9, ADULT 04/02/2017 BOOM MILLER MD Ot Z79. 4 PIT INSPECTOR (CURRENT) USE OF INSULIN 04/02/2017 BOOM MILLER MD Ot Z79. 82 FPC (CURRENT) USE OF ASPIRIN 04/02/2017 BOOM MILLER [...] Ot I25. 10 ATHSCL HEART DISEASE OF [place] CORONARY 04/20/2017 BOOM MILLER MD Ot I48. 91 UNSPECIFIED ATRIAL FIBRILLATION 04/20/2017 BOOM MILLER MD Ot R06. 83 SNORING 04/20/2017 BOOM MILLER MD Ot Z68. 35 BODY MASS INDEX (BMI) 35.0-35.9, ADULT 04/20/2017 BOOM MILLER MD Ot Z79. 4 FPC (CURRENT) USE OF INSULIN 04/20/2017 BOOM MILLER MD Ot Z79. 82 FPC (CURRENT) USE OF ASPIRIN 04/20/2017 BOOM MILLER MD Ot Z79.899 OTHER FPC (CURRENT) DRUG THERAPY 04/20/2017 BOOM MILLER MD [...] COTTO Ot 786.50 CHEST PAIN NOS 09/24/2017 MELINDAVAN A MAILHOUSE OPERATOR Ot V76.12 OTH SCREEN MAMMO-MALIGN NEOPLASM OF [place] 09/24/2017 BOOM MILLER MD Ot E78. 5 HYPERLIPIDEMIA, UNSPECIFIED 09/24/2017 BOOM MILLER MD Ot I10 ESSENTIAL (PRIMARY) HYPERTENSION 09/24/2017 BOOM MILLER MD Ot I25. 10 ATHSCL HEART DISEASE OF [place] CORONARY 09/24/2017 BOOM MILLER MD Ot R07. 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 10 ATHSCL HEART DISEASE OF [place] CORONARY 09/24/2017 BOOM MILLER MD Ot I48. 91 UNSPECIFIED ATRIAL FIBRILLATION 09/24/2017 BOOM MILLER MD Ot R06. 83 SNORING 09/24/2017 BOOM MILLER MD Ot Z68. 35 BODY MASS INDEX (BMI) 35.0-35.9, ADULT 09/24/2017 BOOM MILLER MD Ot Z79. 4 FPC (CURRENT) USE OF INSULIN 09/24/2017 BOOM MILLER MD Ot Z79. 82 PIT INSPECTOR (CURRENT) USE OF ASPIRIN 09/24/2017 BOOM MILLER [...] Ot I25. 10 ATHSCL HEART DISEASE OF [place] CORONARY 01/14/2018 BOOM MILLER MD Ot I48. 91 UNSPECIFIED ATRIAL FIBRILLATION 01/14/2018 BOOM MILLER MD Ot R06. 83 SNORING 01/14/2018 BOOM MILLER MD Ot Z68. 35 BODY MASS INDEX (BMI) 35.0-35.9, ADULT 01/14/2018 BOOM MILLER MD Ot Z79. 4 FPC (CURRENT) USE OF INSULIN 01/14/2018 BOOM MILLER MD Ot Z79. 82 FPC (CURRENT) USE OF ASPIRIN 01/14/2018 BOOM MILLER MD Ot Z79.899 OTHER FPC (CURRENT) DRUG THERAPY 01/14/2018 BOOM MILLER MD [...] Ot I25. 10 ATHSCL HEART DISEASE OF [place] CORONARY 01/14/2018 BOOM MILLER MD Ot I48. 91 UNSPECIFIED ATRIAL FIBRILLATION 01/14/2018 BOOM MILLER MD Ot R06. 83 SNORING 01/14/2018 BOOM MILLER MD Ot Z68. 35 BODY MASS INDEX (BMI) 35.0-35.9, ADULT 01/14/2018 BOOM MILLER MD Ot Z79. 4 PIT INSPECTOR (CURRENT) USE OF INSULIN 01/14/2018 BOOM MILLER MD Ot Z79. 82 PIT INSPECTOR (CURRENT) USE OF ASPIRIN 01/14/2018 BOOM MILLER MD Ot Z79.899 OTHER PIT INSPECTOR (CURRENT) DRUG THERAPY 01/14/2018 BOOM MILLER MD [...] 02/07/2018 BOOM MILLER MD Ot Z79. 01 PIT INSPECTOR (CURRENT) USE OF ANTICOAGULANT 02/28/2018 BOOM MILLER MD Ot I48. 0 PAROXYSMAL ATRIAL FIBRILLATION 02/28/2018 BOOM MILLER MD, Ot Z51. 81 ENCOUNTER FOR THERAPEUTIC DRUG LEVEL MON 02/28/2018 BOOM MILLER MD Ot Z79. 01 FPC (CURRENT) USE OF ANTICOAGULANT 03/02/2018 BOOM MILLER [...] 786.50 CHEST PAIN NOS 03/09/2018 VAN LAWRENCE MAILHOUSE OPERATOR Ot V76.12 OTH SCREEN MAMMO-MALIGN NEOPLASM OF [place] 03/09/2018 BOOM MILLER MD Ot E78. 5 HYPERLIPIDEMIA, UNSPECIFIED 03/09/2018 BOOM MILLER MD Ot I10 ESSENTIAL (PRIMARY) HYPERTENSION 03/09/2018 BOOM MILLER MD Ot I25. 10 ATHSCL HEART DISEASE OF [place] CORONARY 03/09/2018 BOOM MILLER MD Ot R07. 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 10 ATHSCL HEART DISEASE OF [place] CORONARY 03/09/2018 BOOM MILLER MD Ot I48. 91 UNSPECIFIED ATRIAL FIBRILLATION 03/09/2018 BOOM MILLER MD Ot R06. 83 SNORING 03/09/2018 BOOM MILLER MD Ot Z68. 35 BODY MASS INDEX (BMI) 35.0-35.9, ADULT 03/09/2018 BOOM MILLER MD Ot Z79. 4 FPC (CURRENT) USE OF INSULIN 03/09/2018 BOOM MILLER MD Ot Z79. 82 FPC (CURRENT) USE OF ASPIRIN 03/09/2018 BOOM [...] 03/09/2018 BOOM MILLER MD Ot Z79. 01 FPC (CURRENT) USE OF ANTICOAGULANT 03/09/2018 BOOM MILLER [...] Ot I25. 10 ATHSCL HEART DISEASE OF [place] CORONARY 03/09/2018 BOOM MILLER MD Ot I35. 0 NONRHEUMATIC AORTIC (VALVE) STENOSIS 03/09/2018 BOOM MILLER MD Ot I48. 0 PAROXYSMAL ATRIAL FIBRILLATION 03/09/2018 BOOM MILLER MD Ot R07. 9 CHEST PAIN, UNSPECIFIED 03/09/2018 BOOM MILLER MD Ot Z68. 37 BODY MASS INDEX (BMI) 37.0-37.9, ADULT 03/09/2018 BOOM MILLER MD Ot Z79. 4 FPC (CURRENT) USE OF INSULIN 03/09/2018 BOOM MILLRE MD Ot Z79.899 OTHER PIT INSPECTOR (CURRENT) DRUG THERAPY 03/09/2018 BOOM MILLER MD [...] Ot I25. 10 ATHSCL HEART DISEASE OF [place] CORONARY 03/11/2018 BOOM MILLER MD Ot I35. 0 NONRHEUMATIC AORTIC (VALVE) STENOSIS 03/11/2018 BOOM MILLER MD Ot I48. 0 PAROXYSMAL ATRIAL FIBRILLATION 03/11/2018 BOOM MILLER MD Ot R07. 9 CHEST PAIN, UNSPECIFIED 03/11/2018 BOOM MILLER MD Ot Z68. 37 BODY MASS INDEX (BMI) 37.0-37.9, ADULT 03/11/2018 BOOM MILLER MD Ot Z79. 4 PIT INSPECTOR (CURRENT) USE OF INSULIN 03/11/2018 BOOM MILLER MD Ot Z79.899 OTHER FPC (CURRENT) DRUG THERAPY 03/11/2018 BOOM MILLER MD Ot Z87.891 PERSONAL HISTORY OF NICOTINE DEPENDENCE 03/11/2018 BOOM MILLER MD Ot Z95. 5 PRESENCE OF CORONARY ANGIOPLASTY IMPLANT 03/31/2018 BOOM MILLER MD Ot Z79. 01 FPC (CURRENT) USE OF ANTICOAGULANT 04/18/2018 BOOM MILLER MD Ot Z79. 01 PIT INSPECTOR (CURRENT) USE OF ANTICOAGULANT 05/05/2018 BOOM MILLER MD Ot I48. 0 PAROXYSMAL ATRIAL FIBRILLATION 05/05/2018 BOOM MILLER MD Ot Z79. 01 PIT INSPECTOR (CURRENT) USE OF ANTICOAGULANT 05/30/2018 BOOM MILLER MD Ot I48. 0 PAROXYSMAL ATRIAL FIBRILLATION 05/30/2018 BOOM MILLER MD Ot Z79. 01 PIT INSPECTOR (CURRENT) USE OF ANTICOAGULANT 06/06/2018 BOOM MILLER MD Ot I48. 0 PAROXYSMAL ATRIAL FIBRILLATION 06/06/2018 BOOM MILLER MD Ot Z79. 01 FPC (CURRENT) USE OF ANTICOAGULANT 07/11/2018 BOOM MILLER MD Ot I48. 0 PAROXYSMAL ATRIAL FIBRILLATION 07/11/2018 BOOM MILLER MD Ot Z79. 01 FPC (CURRENT) USE OF ANTICOAGULANT 07/12/2018 BOOM MILLER MD Ot I48. 0 PAROXYSMAL ATRIAL FIBRILLATION 07/12/2018 BOOM MILLER MD Ot Z79. 01 PIT INSPECTOR (CURRENT) USE OF ANTICOAGULANT 07/12/2018 MICHAEL DE [...] Ot I25. 10 ATHSCL HEART DISEASE OF [place] CORONARY 07/12/2018 MICHAEL DE LA GARZA MD [...] DE LA GARZA MD Ot Z79. 01 PIT INSPECTOR (CURRENT) USE OF ANTICOAGULANT 07/12/2018 MICHAEL DE LA GARZA MD Ot Z79. 02 FPC (CURRENT) USE OF ANTITHROMBOTI 07/12/2018 MICHAEL DE LA GARZA MD Ot Z79. 4 FPC (CURRENT) USE OF INSULIN 07/12/2018 MICHAEL DE LA GARZA MD Ot Z79. 82 FPC (CURRENT) USE OF ASPIRIN 07/12/2018 MICHAEL DE [...] Ot I25. 10 ATHSCL HEART DISEASE OF [place] CORONARY 07/14/2018 MICHAEL DE LA GARZA MD [...] DE LA GARZA MD, Ot Z79. 01 FPC (CURRENT) USE OF ANTICOAGULANT 07/14/2018 MICHAEL DE LA GARZA MD, Ot Z79. 02 PIT INSPECTOR (CURRENT) USE OF ANTITHROMBOTI 07/14/2018 MICHAEL DE LA GARZA MD, Ot Z79. 4 FPC (CURRENT) USE OF INSULIN 07/14/2018 MICHAEL DE LA GARZA MD, Ot Z79. 82 FPC (CURRENT) USE OF ASPIRIN 07/14/2018 MICHAEL DE LA GARZA MD, Ot Z87. 19 PERSONAL HISTORY OF OTHER DISEASES OF TH 07/14/2018 MICHAEL DE LA GARZA MD, Ot Z87.891 PERSONAL HISTORY OF NICOTINE DEPENDENCE 07/14/2018 MICHAEL DE LA GARZA MD, Ot Z88. 5 ALLERGY STATUS TO NARCOTIC AGENT STATUS 07/14/2018 MICHAEL DE LA GARZA MD Ot Z95. [...] MD, Ot I25.10 ATHSCL HEART DISEASE OF [place] CORONARY 07/23/2018 Jaime GARSIA MD Ot I48 .0 PAROXYSMAL ATRIAL FIBRILLATION 07/23/2018 Jaime GARSIA MD Ot I95 .2 HYPOTENSION DUE TO DRUGS 07/23/2018 Jaime GARSIA MD Ot K21 .9 GASTRO-ESOPHAGEAL REFLUX DISEASE WITHOUT 07/23/2018 Jaime GARSIA MD, Ot M54 .9 DORSALGIA, UNSPECIFIED 07/23/2018 Jaime GARSIA MD Ot N18 .9 CHRONIC KIDNEY DISEASE, UNSPECIFIED 07/23/2018 Jaime GARSIA MD Ot N28 .9 DISORDER OF KIDNEY AND URETER, UNSPECIFI 07/23/2018 Jaime GARSIA MD Ot R00 .1 BRADYCARDIA, UNSPECIFIED 07/23/2018 Jaime GARSIA MD Ot R57 .0 CARDIOGENIC SHOCK 07/23/2018 Jaime GARSIA MD Ot Z68.38 BODY MASS INDEX (BMI) 38.0-38.9, ADULT 07/23/2018 Jaime GARSIA MD Ot Z79.01 PIT INSPECTOR (CURRENT) USE OF ANTICOAGULANT 07/23/2018 Jaime GARSIA [...] MD, Ot I25.10 ATHSCL HEART DISEASE OF [place] CORONARY 07/24/2018 Jaime GARSIA MD Ot I48 [...] ADULT 07/24/2018 Jaime GARSIA MD, Ot Z79.01 PIT INSPECTOR (CURRENT) USE OF ANTICOAGULANT 07/24/2018 Jaime GARSIA MD, Ot Z87.19 PERSONAL HISTORY OF OTHER DISEASES OF TH 07/24/2018 Jaime GARSIA MD Ot Z87.891 PERSONAL HISTORY OF NICOTINE DEPENDENCE 07/24/2018 Jaime GARSIA MD Ot Z95 .5 PRESENCE OF CORONARY ANGIOPLASTY IMPLANT 07/24/2018 Jaime GARSIA MD Ot E11 .9 TYPE 2 DIABETES MELLITUS WITHOUT COMPLIC 07/24/2018 Jaime GARSIA MD, Ot E66 .9 OBESITY, UNSPECIFIED 07/24/2018 Jaime [...] MD Ot I25.10 ATHSCL HEART DISEASE OF [place] CORONARY 07/24/2018 KHALID MD, M RENEE Ot I48 .0 PAROXYSMAL ATRIAL FIBRILLATION 07/24/2018 [...] ADULT 07/24/2018 Jaime GARSIA MD, Ot Z79.01 PIT INSPECTOR (CURRENT) USE OF ANTICOAGULANT 07/24/2018 Jaime GARSIA [...] MD, Ot I25.10 ATHSCL HEART DISEASE OF [place] CORONARY 07/24/2018 Jaime GARSIA MD Ot I48 .0 PAROXYSMAL ATRIAL FIBRILLATION 07/24/2018 Jaime GARSIA MD, Ot I49 .5 SICK SINUS SYNDROME 07/24/2018 Jaime GARSIA MD, Ot I95 .2 HYPOTENSION DUE TO DRUGS 07/24/2018 Jaime GARSIA MD, Ot K21 .9 GASTRO-ESOPHAGEAL REFLUX DISEASE WITHOUT 07/24/2018 Jaime GASRIA MD, Ot M54 .9 DORSALGIA, UNSPECIFIED 07/24/2018 Jaime GARSIA MD, Ot N18 .9 CHRONIC KIDNEY DISEASE, UNSPECIFIED 07/24/2018 Jaime GARSIA MD, Ot N28 .9 DISORDER OF KIDNEY AND URETER, UNSPECIFI 07/24/2018 Jaiem GARSIA MD, Ot R57 .0 CARDIOGENIC SHOCK 07/24/2018 Jaime GARSIA MD, Ot T82.855D STENOSIS OF CORONARY ARTERY STENT, SUBSE 07/24/2018 Jaime GARSIA MD, Ot Z68.38 BODY MASS INDEX (BMI) 38.0-38.9, ADULT 07/24/2018 Jaime GARSIA MD, Ot Z79.01 PIT INSPECTOR (CURRENT) USE OF ANTICOAGULANT 07/24/2018 Jaime GARSIA MD, Ot Z79 .4 PIT INSPECTOR (CURRENT) USE OF INSULIN 07/24/2018 Jaime GARSIA [...] Ot I25. 10 ATHSCL HEART DISEASE OF [place] CORONARY 12/15/2018 MICHAEL DE LA GARZA MD [...] DE LA GARZA MD Ot Z79. 01 FPC (CURRENT) USE OF ANTICOAGULANT 12/15/2018 MICHAEL DE LA GARZA MD Ot Z79. 02 FPC (CURRENT) USE OF ANTITHROMBOTI 12/15/2018 MICHAEL DE LA GARZA MD Ot Z79. 4 PIT INSPECTOR (CURRENT) USE OF INSULIN 12/15/2018 MICHAEL DE LA GARZA MD Ot Z79. 82 PIT INSPECTOR (CURRENT) USE OF ASPIRIN 12/15/2018 MICHAEL DE [...] PRESENCE OF CORONARY ANGIOPLASTY IMPLANT 01/13/2019 ZACK LOPEZ DO Ot E11.9 TYPE 2 DIABETES MELLITUS WITHOUT COMPLIC 01/13/2019 ZACK LOPEZ DO Ot E66.9 OBESITY, UNSPECIFIED 01/13/2019 ZACK LOPEZ DO Ot E78.00 PURE HYPERCHOLESTEROLEMIA, UNSPECIFIED 01/13/2019 WILTON LOPEZ DOI Ot E78.5 HYPERLIPIDEMIA, UNSPECIFIED 01/13/2019 WILTON LOPEZ DOI Ot E83.39 OTHER DISORDERS OF PHOSPHORUS METABOLISM 01/13/2019 ZACK LOPEZ DO Ot G47.33 OBSTRUCTIVE SLEEP APNEA (ADULT) (PEDIATR 01/13/2019 ZACK LOPEZ DO Ot G89.29 OTHER CHRONIC PAIN 01/13/2019 ZACK LOPEZ DO Ot I13.0 HYP HRT CHR [facility] DIS W HRT FAIL AND ST 01/13/2019 ZACK LOPEZ DO Ot I21.A1 MYOCARDIAL INFARCTION TYPE 2 01/13/2019 ZACK LOPEZ DO Ot I25.10 ATHSCL HEART DISEASE OF [place] CORONARY 01/13/2019 ZACK LOPEZ DO Ot I25.2 OLD MYOCARDIAL INFARCTION 01/13/2019 ZACK LOPEZ DO Ot I27.20 PULMONARY HYPERTENSION, UNSPECIFIED 01/13/2019 ZACK LOPEZ DO Ot I34.0 NONRHEUMATIC MITRAL (VALVE) INSUFFICIENC 01/13/2019 ZACK LOPEZ DO Ot I48.0 PAROXYSMAL ATRIAL FIBRILLATION 01/13/2019 ZACK LOPEZ DO Ot I50.31 ACUTE DIASTOLIC (CONGESTIVE) HEART FAILU 01/13/2019 ZACK LOPEZ DO Ot J44.1 CHRONIC OBSTRUCTIVE PULMONARY DISEASE W 01/13/2019 ZACK LOPEZ DO Ot J96.01 ACUTE RESPIRATORY FAILURE WITH HYPOXIA 01/13/2019 ZACK LOPEZ DO Ot K21.9 GASTRO-ESOPHAGEAL REFLUX DISEASE WITHOUT 01/13/2019 ZACK LOPEZ DO Ot N17.9 ACUTE KIDNEY FAILURE, UNSPECIFIED 01/13/2019 ZACK LOPEZ DO Ot N18.9 CHRONIC KIDNEY DISEASE, UNSPECIFIED 01/13/2019 ZACK LOPEZ DO Ot Z68.41 BODY MASS INDEX (BMI) 40.0-44.9, ADULT 01/13/2019 ZACK LOPEZ DO Ot Z79.01 PIT INSPECTOR (CURRENT) USE OF ANTICOAGULANT 01/13/2019 ZACK LOPEZ DO Ot Z79.82 FPC (CURRENT) USE OF ASPIRIN 01/13/2019 ZACK LOPEZ DO Ot Z87.89 1 PERSONAL HISTORY OF NICOTINE DEPENDENCE 01/13/2019 ZACK LOPEZ DO Ot Z91.19 PATIENT'S NONCOMPLIANCE W [facility] 01/13/2019 ZACK LOPEZ DO Ot Z95.5 PRESENCE OF CORONARY ANGIOPLASTY IMPLANT 01/13/2019 ZACK LOPEZ DO Ot Z99.81 DEPENDENCE ON SUPPLEMENTAL OXYGEN 01/19/2019 ZACK LOPEZ DO Ot E11.9 TYPE 2 DIABETES MELLITUS WITHOUT COMPLIC 01/19/2019 WILTON LOPEZ DOI Ot E66.9 OBESITY, UNSPECIFIED 01/19/2019 GREGG DOLAN ZACK Ot E78.5 HYPERLIPIDEMIA, UNSPECIFIED 01/19/2019 WILTON LOPEZ DOI Ot E83.39 OTHER DISORDERS OF PHOSPHORUS METABOLISM 01/19/2019 WILTON LOPEZ DOI Ot G47.33 OBSTRUCTIVE SLEEP APNEA (ADULT) (PEDIATR 01/19/2019 ZACK LOPEZ DO Ot G89.29 OTHER CHRONIC PAIN 01/19/2019 ZACK LOPEZ DO Ot I13.0 HYP HRT CHR [place] DIS W HRT FAIL AND ST 01/19/2019 ZACK LOPEZ DO Ot I21.A1 MYOCARDIAL INFARCTION TYPE 2 01/19/2019 ZACK LOPEZ DO Ot I25.10 ATHSCL HEART DISEASE OF [place] CORONARY 01/19/2019 ZACK LOPEZ DO Ot I25.2 OLD MYOCARDIAL INFARCTION 01/19/2019 WILTON LOPEZ DOI Ot I27.20 PULMONARY HYPERTENSION, UNSPECIFIED 01/19/2019 GREGG DOLAN ZACK Ot I34.0 NONRHEUMATIC MITRAL (VALVE) INSUFFICIENC 01/19/2019 WILTON LOPEZ DOI Ot I48.0 PAROXYSMAL ATRIAL FIBRILLATION 01/19/2019 WILTON LOPEZ DOI Ot I50.31 ACUTE DIASTOLIC (CONGESTIVE) HEART FAILU 01/19/2019 ZACK LOPEZ DO Ot J44.1 CHRONIC OBSTRUCTIVE PULMONARY DISEASE W 01/19/2019 ZACK LOPEZ DO Ot J96.01 ACUTE RESPIRATORY FAILURE WITH HYPOXIA 01/19/2019 GREGG DOLAN ZACK Ot K21.9 GASTRO-ESOPHAGEAL REFLUX DISEASE WITHOUT 01/19/2019 GREGG DOLAN ZACK Ot N17.9 ACUTE KIDNEY FAILURE, UNSPECIFIED 01/19/2019 WILTON LOPEZ DOI Ot N18.9 CHRONIC KIDNEY DISEASE, UNSPECIFIED 01/19/2019 ZACK LOPEZ DO Ot Z68.41 BODY MASS INDEX (BMI) 40.0-44.9, ADULT 01/19/2019 ZACK LOPEZ DO Ot Z79.01 PIT INSPECTOR (CURRENT) USE OF ANTICOAGULANT 01/19/2019 ZACK LOPEZ DO Ot Z79.82 PIT INSPECTOR (CURRENT) USE OF ASPIRIN 01/19/2019 ZACK LOPEZ DO Ot Z87.89 1 PERSONAL HISTORY OF NICOTINE DEPENDENCE 01/19/2019 ZACK LOPEZ DO Ot Z91.19 PATIENT'S NONCOMPLIANCE W [facility] TR 01/19/2019 ZACK LOPEZ DO Ot Z95.5 PRESENCE OF CORONARY ANGIOPLASTY IMPLANT 01/19/2019 ZACK LOPEZ DO Ot Z99.81 DEPENDENCE ON SUPPLEMENTAL OXYGEN 01/19/2019 ZACK LOPEZ DO Ot E11.9 TYPE 2 DIABETES MELLITUS WITHOUT COMPLIC 01/19/2019 ZACK LOPEZ DO Ot E66.9 OBESITY, UNSPECIFIED 01/19/2019 ZACK LOPEZ DO Ot E78.5 HYPERLIPIDEMIA, UNSPECIFIED 01/19/2019 WILTON LOPEZ DOI Ot E83.39 OTHER DISORDERS OF PHOSPHORUS METABOLISM 01/19/2019 ZACK LOPEZ DO Ot G47.33 OBSTRUCTIVE SLEEP APNEA (ADULT) (PEDIATR 01/19/2019 ZACK LOPEZ DO Ot G89.29 OTHER CHRONIC PAIN 01/19/2019 ZACK LOPEZ DO Ot I13.0 HYP HRT CHR [place] DIS W HRT FAIL AND ST 01/19/2019 ZACK LOPEZ DO Ot I21.A1 MYOCARDIAL INFARCTION TYPE 2 01/19/2019 ZACK LOPEZ DO Ot I25.10 ATHSCL HEART DISEASE OF [place] CORONARY 01/19/2019 WILTON LOPEZ DOI Ot I25.2 OLD MYOCARDIAL INFARCTION 01/19/2019 ZACK LOPEZ DO Ot I27.20 PULMONARY HYPERTENSION, UNSPECIFIED 01/19/2019 ZACK LOPEZ DO Ot I34.0 NONRHEUMATIC MITRAL (VALVE) INSUFFICIENC 01/19/2019 WILTON LOPEZ DOI Ot I48.0 PAROXYSMAL ATRIAL FIBRILLATION 01/19/2019 WILTON LOPEZ DOI Ot I50.31 ACUTE DIASTOLIC (CONGESTIVE) HEART FAILU 01/19/2019 ZACK LOPEZ DO Ot J44.1 CHRONIC OBSTRUCTIVE PULMONARY DISEASE W 01/19/2019 ZACK LOPEZ DO Ot J96.01 ACUTE RESPIRATORY FAILURE WITH HYPOXIA 01/19/2019 ZACK LOPEZ DO Ot K21.9 GASTRO-ESOPHAGEAL REFLUX DISEASE WITHOUT 01/19/2019 WILTON LOPEZ DOI Ot N17.9 ACUTE KIDNEY FAILURE, UNSPECIFIED 01/19/2019 ZACK LOPEZ DO Ot N18.9 CHRONIC KIDNEY DISEASE, UNSPECIFIED 01/19/2019 ZACK LOPEZ DO Ot Z68.41 BODY MASS INDEX (BMI) 40.0-44.9, ADULT 01/19/2019 ZACK LOPEZ DO Ot Z79.01 PIT INSPECTOR (CURRENT) USE OF ANTICOAGULANT 01/19/2019 ZACK LOPEZ DO Ot Z79.82 FPC (CURRENT) USE OF ASPIRIN 01/19/2019 ZACK LOPEZ DO Ot Z87.89 1 PERSONAL HISTORY OF NICOTINE DEPENDENCE 01/19/2019 ZACK LOPEZ DO Ot Z91.19 PATIENT'S NONCOMPLIANCE W [facility] TR 01/19/2019 ZACK LOPEZ DO Ot Z95.5 PRESENCE OF CORONARY ANGIOPLASTY IMPLANT 01/19/2019 ZACK LOPEZ DO Ot Z99.81 DEPENDENCE ON SUPPLEMENTAL OXYGEN 01/19/2019 ZACK LOPEZ DO Ot E11.9 TYPE 2 DIABETES MELLITUS WITHOUT COMPLIC 01/19/2019 ZACK LOPEZ DO Ot E66.9 OBESITY, UNSPECIFIED 01/19/2019 GREGG DOLAN ZACK Ot E78.5 HYPERLIPIDEMIA, UNSPECIFIED 01/19/2019 WILTON LOPEZ DOI Ot E83.39 OTHER DISORDERS OF PHOSPHORUS METABOLISM 01/19/2019 ZACK LOPEZ DO Ot G47.33 OBSTRUCTIVE SLEEP APNEA (ADULT) (PEDIATR 01/19/2019 WILTON LOPEZ DOI Ot G89.29 OTHER CHRONIC PAIN 01/19/2019 ZACK LOPEZ DO Ot I13.0 HYP HRT CHR [place] DIS W HRT FAIL AND ST 01/19/2019 ZACK LOPEZ DO Ot I21.A1 MYOCARDIAL INFARCTION TYPE 2 01/19/2019 WILTON LOPEZ DOI Ot I25.10 ATHSCL HEART DISEASE OF [place] CORONARY 01/19/2019 GREGG DOLAN ZCAK Ot I25.2 OLD MYOCARDIAL INFARCTION 01/19/2019 ZACK LOPEZ DO Ot I27.20 PULMONARY HYPERTENSION, UNSPECIFIED 01/19/2019 ZACK LOPEZ DO Ot I34.0 NONRHEUMATIC MITRAL (VALVE) INSUFFICIENC 01/19/2019 ZACK LOPEZ DO Ot I48.0 PAROXYSMAL ATRIAL FIBRILLATION 01/19/2019 ZACK LOPEZ DO Ot I50.31 ACUTE DIASTOLIC (CONGESTIVE) HEART FAILU 01/19/2019 ZACK LOPEZ DO Ot J44.1 CHRONIC OBSTRUCTIVE PULMONARY DISEASE W 01/19/2019 ZACK LOPEZ DO Ot J96.01 ACUTE RESPIRATORY FAILURE WITH HYPOXIA 01/19/2019 ZACK LOPEZ DO Ot K21.9 GASTRO-ESOPHAGEAL REFLUX DISEASE WITHOUT 01/19/2019 WILTON LOPEZ DOI Ot N17.9 ACUTE KIDNEY FAILURE, UNSPECIFIED 01/19/2019 ZACK LOPEZ DO Ot N18.9 CHRONIC KIDNEY DISEASE, UNSPECIFIED 01/19/2019 ZACK LOPEZ DO Ot Z68.41 BODY MASS INDEX (BMI) 40.0-44.9, ADULT 01/19/2019 ZACK LOPEZ DO Ot Z79.01 FPC (CURRENT) USE OF ANTICOAGULANT 01/19/2019 ZACK LOPEZ DO Ot Z79.82 FPC (CURRENT) USE OF ASPIRIN 01/19/2019 ZACK LOPEZ DO Ot Z87.89 1 PERSONAL HISTORY OF NICOTINE DEPENDENCE 01/19/2019 ZACK LOPEZ DO Ot Z91.19 PATIENT'S NONCOMPLIANCE W [facility] TR 01/19/2019 ZACK OLPEZ DO Ot Z95.5 PRESENCE OF CORONARY ANGIOPLASTY IMPLANT 01/19/2019 ZACK LOPEZ DO Ot Z99.81 DEPENDENCE ON SUPPLEMENTAL OXYGEN 01/19/2019 ZACK LOPEZ DO Ot E11.9 TYPE 2 DIABETES MELLITUS WITHOUT COMPLIC 01/19/2019 ZACK LOPEZ DO Ot E66.9 OBESITY, UNSPECIFIED 01/19/2019 GREGG DOLAN ZACK Ot E78.5 HYPERLIPIDEMIA, UNSPECIFIED 01/19/2019 ZACK LOPEZ DO Ot E83.39 OTHER DISORDERS OF PHOSPHORUS METABOLISM 01/19/2019 ZACK LOPEZ DO Ot G47.33 OBSTRUCTIVE SLEEP APNEA (ADULT) (PEDIATR 01/19/2019 ZACK LOPEZ DO Ot G89.29 OTHER CHRONIC PAIN 01/19/2019 ZACK LOPEZ DO Ot I13.0 HYP HRT CHR [place] DIS W HRT FAIL AND ST 01/19/2019 ZACK LOPEZ DO Ot I21.A1 MYOCARDIAL INFARCTION TYPE 2 01/19/2019 ZACK LOPEZ DO Ot I25.10 ATHSCL HEART DISEASE OF [place] CORONARY 01/19/2019 ZACK LOPEZ DO Ot I25.2 OLD MYOCARDIAL INFARCTION 01/19/2019 WILTON LOPEZ DOI Ot I27.20 PULMONARY HYPERTENSION, UNSPECIFIED 01/19/2019 GREGG DOLAN ZACK Ot I34.0 NONRHEUMATIC MITRAL (VALVE) INSUFFICIENC 01/19/2019 WILTON LOPEZ DOI Ot I48.0 PAROXYSMAL ATRIAL FIBRILLATION 01/19/2019 GREGG DOLAN ZACK Ot I50.31 ACUTE DIASTOLIC (CONGESTIVE) HEART FAILU 01/19/2019 ZACK LOPEZ DO Ot J44.1 CHRONIC OBSTRUCTIVE PULMONARY DISEASE W 01/19/2019 ZACK LOPEZ DO Ot J96.01 ACUTE RESPIRATORY FAILURE WITH HYPOXIA 01/19/2019 WILTON LOPEZ DOI Ot K21.9 GASTRO-ESOPHAGEAL REFLUX DISEASE WITHOUT 01/19/2019 WILTON LOPEZ DOI Ot N17.9 ACUTE KIDNEY FAILURE, UNSPECIFIED 01/19/2019 WILTON LOPEZ DOI Ot N18.9 CHRONIC KIDNEY DISEASE, UNSPECIFIED 01/19/2019 WILTON LOPEZ DOI Ot Z68.41 BODY MASS INDEX (BMI) 40.0-44.9, ADULT 01/19/2019 ZACK LOPEZ DO Ot Z79.01 FPC (CURRENT) USE OF ANTICOAGULANT 01/19/2019 ZACK LOPEZ DO Ot Z79.82 FPC (CURRENT) USE OF ASPIRIN 01/19/2019 ZACK LOPEZ DO Ot Z87.89 1 PERSONAL HISTORY OF NICOTINE DEPENDENCE 01/19/2019 ZACK LOPEZ DO Ot Z91.19 PATIENT'S NONCOMPLIANCE W [facility] TR 01/19/2019 ZACK LOPEZ DO Ot Z95.5 PRESENCE OF CORONARY ANGIOPLASTY IMPLANT 01/19/2019 ZACK LOPEZ DO Ot Z99.81 DEPENDENCE ON SUPPLEMENTAL OXYGEN 01/19/2019 WILTON LOPEZ DOI Ot E11.9 TYPE 2 DIABETES MELLITUS WITHOUT COMPLIC 01/19/2019 WILTON LOPEZ DOI Ot E66.9 OBESITY, UNSPECIFIED 01/19/2019 WILTON LOPEZ DOI Ot E78.5 HYPERLIPIDEMIA, UNSPECIFIED 01/19/2019 ZACK LOPEZ DO Ot E83.39 OTHER DISORDERS OF PHOSPHORUS METABOLISM 01/19/2019 ZACK LOPEZ DO Ot G47.33 OBSTRUCTIVE SLEEP APNEA (ADULT) (PEDIATR 01/19/2019 ZACK LOPEZ DO Ot G89.29 OTHER CHRONIC PAIN 01/19/2019 ZACK LOPEZ DO Ot I13.0 HYP HRT CHR [place] DIS W HRT FAIL AND ST 01/19/2019 ZACK LOPEZ DO Ot I21.A1 MYOCARDIAL INFARCTION TYPE 2 01/19/2019 ZACK LOPEZ DO Ot I25.10 ATHSCL HEART DISEASE OF [place] CORONARY 01/19/2019 WILTON LOPEZ DOI Ot I25.2 OLD MYOCARDIAL INFARCTION 01/19/2019 ZACK LOPEZ DO Ot I27.20 PULMONARY HYPERTENSION, UNSPECIFIED 01/19/2019 ZACK LOPEZ DO Ot I34.0 NONRHEUMATIC MITRAL (VALVE) INSUFFICIENC 01/19/2019 WILTON LOPEZ DOI Ot I48.0 PAROXYSMAL ATRIAL FIBRILLATION 01/19/2019 ZACK LOPEZ DO Ot I50.31 ACUTE DIASTOLIC (CONGESTIVE) HEART FAILU 01/19/2019 ZACK LOPEZ DO Ot J44.1 CHRONIC OBSTRUCTIVE PULMONARY DISEASE W 01/19/2019 ZACK LOPEZ DO Ot J96.01 ACUTE RESPIRATORY FAILURE WITH HYPOXIA 01/19/2019 ZACK LOPEZ DO Ot K21.9 GASTRO-ESOPHAGEAL REFLUX DISEASE WITHOUT 01/19/2019 WILTON LOPEZ DOI Ot N17.9 ACUTE KIDNEY FAILURE, UNSPECIFIED 01/19/2019 WILTON LOPEZ DOI Ot N18.9 CHRONIC KIDNEY DISEASE, UNSPECIFIED 01/19/2019 ZACK LOPEZ DO Ot Z68.41 BODY MASS INDEX (BMI) 40.0-44.9, ADULT 01/19/2019 ZACK LOPEZ DO Ot Z79.01 PIT INSPECTOR (CURRENT) USE OF ANTICOAGULANT 01/19/2019 ZACK LOPEZ DO Ot Z79.82 PIT INSPECTOR (CURRENT) USE OF ASPIRIN 01/19/2019 ZACK LOPEZ DO Ot Z87.89 1 PERSONAL HISTORY OF NICOTINE DEPENDENCE 01/19/2019 ZACK LOPEZ DO Ot Z91.19 PATIENT'S NONCOMPLIANCE W OT MEDICAL TR 01/19/2019 ZACK LOPEZ DO Ot Z95.5 PRESENCE OF CORONARY ANGIOPLASTY IMPLANT 01/19/2019 LOPEZ DO, ZACK Ot Z99.81 DEPENDENCE ON SUPPLEMENTAL OXYGEN 01/28/2019 GREGG DOLAN ZACK Ot E11.21 TYPE 2 DIABETES MELLITUS WITH DIABETIC N 01/28/2019 WILTON LOPEZ DOI Ot E11.65 TYPE 2 DIABETES MELLITUS WITH HYPERGLYCE 01/28/2019 GREGG DOLAN ZACK Ot E66.9 OBESITY, UNSPECIFIED 01/28/2019 GREGG DOLAN ZACK Ot E78.5 HYPERLIPIDEMIA, UNSPECIFIED 01/28/2019 GREGG DOLAN ZACK Ot E88.81 METABOLIC SYNDROME 01/28/2019 GREGG DOLAN ZACK Ot F32.9 MAJOR DEPRESSIVE DISORDER, SINGLE EPISOD 01/28/2019 GREGG DOLAN ZACK Ot F41.9 ANXIETY DISORDER, UNSPECIFIED 01/28/2019 GREGG DOLAN ZACK Ot G47.33 OBSTRUCTIVE SLEEP APNEA (ADULT) (PEDIATR 01/28/2019 GREGG DOLAN ZACK Ot G72.89 OTHER SPECIFIED MYOPATHIES 01/28/2019 GREGG DOLAN ZACK Ot I12.9 HYPERTENSIVE CHRONIC KIDNEY DISEASE W ST 01/28/2019 WILTON LOPEZ DOI Ot I21.A1 MYOCARDIAL INFARCTION TYPE 2 01/28/2019 GREGG DOLAN ZACK Ot I25.10 ATHSCL HEART DISEASE OF [place] CORONARY 01/28/2019 GREGG DOLAN ZACK Ot I48.0 PAROXYSMAL ATRIAL FIBRILLATION 01/28/2019 WILTON LOPEZ DOI Ot I49.5 SICK SINUS SYNDROME 01/28/2019 GREGG DOLAN ZACK Ot J44.9 CHRONIC OBSTRUCTIVE PULMONARY DISEASE, U 01/28/2019 WILTON LOPEZ DOI Ot K21.9 GASTRO-ESOPHAGEAL REFLUX DISEASE WITHOUT [...] 5A ADVERSE EFFECT OF GLUCOCORT/SYNTH ANALOG 01/28/2019 WILTON LOPEZ DOI Ot T82.85 5D STENOSIS OF CORONARY ARTERY STENT, SUBSE 01/28/2019 ZACK LOPEZ DO, Ot Z68.37 BODY MASS INDEX (BMI) 37.0-37.9, ADULT 01/28/2019 ZACK LOPEZ DO, Ot Z79.01 PIT INSPECTOR (CURRENT) USE OF ANTICOAGULANT 01/28/2019 ZACK LOPEZ DO, Ot Z79.4 PIT INSPECTOR (CURRENT) USE OF INSULIN 01/28/2019 ZACK LOPEZ DO Ot Z86.71 1 PERSONAL HISTORY OF PULMONARY EMBOLISM 01/28/2019 ZACK LOPEZ DO Ot Z87.89 1 PERSONAL HISTORY OF NICOTINE DEPENDENCE 01/28/2019 ZACK LOPEZ DO Ot Z95.5 PRESENCE OF CORONARY ANGIOPLASTY [...] Ot I25. 10 ATHSCL HEART DISEASE OF [place] CORONARY 02/05/2019 ALEXA SOLIZ MD, Ot I48. 91 UNSPECIFIED ATRIAL FIBRILLATION 02/05/2019 ALEXA SOLIZ MD, Ot I95. 89 OTHER HYPOTENSION 02/05/2019 ALEXA SOLIZ MD, Ot J44. 9 CHRONIC OBSTRUCTIVE PULMONARY DISEASE, U 02/05/2019 ALEXA SOLIZ MD, Ot K21. 9 GASTRO-ESOPHAGEAL REFLUX DISEASE WITHOUT 02/05/2019 ALEXA SOLIZ MD, Ot R00. 1 BRADYCARDIA, UNSPECIFIED 02/05/2019 ALEXA SOLIZ MD, Ot Z79. 01 FPC (CURRENT) USE OF ANTICOAGULANT 02/05/2019 ALEXA SOLIZ MD, Ot Z79. 4 PIT INSPECTOR (CURRENT) USE OF INSULIN 02/05/2019 ALEXA SOLIZ MD, Ot Z79. 82 PIT INSPECTOR (CURRENT) USE OF ASPIRIN 02/05/2019 ALEXA SOLIZ MD, Ot Z79.899 OTHER PIT INSPECTOR (CURRENT) DRUG THERAPY 02/05/2019 ALEXA SOLIZ MD, [...] Ot I25. 10 ATHSCL HEART DISEASE OF [place] CORONARY 02/07/2019 ALEXA SOLIZ MD, Ot I48. 91 UNSPECIFIED ATRIAL FIBRILLATION 02/07/2019 ALEXA SOLIZ MD, Ot I95. 89 OTHER HYPOTENSION 02/07/2019 ALEXA SOLIZ MD, Ot J44. 9 CHRONIC OBSTRUCTIVE PULMONARY DISEASE, U 02/07/2019 ALEXA SOLIZ MD, Ot K21. 9 GASTRO-ESOPHAGEAL REFLUX DISEASE WITHOUT 02/07/2019 ALEXA SOLIZ MD, Ot R00. 1 BRADYCARDIA, UNSPECIFIED 02/07/2019 ALEXA SOLIZ MD, Ot Z79. 01 FPC (CURRENT) USE OF ANTICOAGULANT 02/07/2019 ALEXA SOLIZ MD, Ot Z79. 4 PIT INSPECTOR (CURRENT) USE OF INSULIN 02/07/2019 ALEXA SOLIZ MD, Ot Z79. 82 PIT INSPECTOR (CURRENT) USE OF ASPIRIN 02/07/2019 ALEXA SOLIZ [...] Ot I25. 10 ATHSCL HEART DISEASE OF [place] CORONARY 02/13/2019 ALEXA SOLIZ MD, Ot I48. 91 UNSPECIFIED ATRIAL FIBRILLATION 02/13/2019 ALEXA SOLIZ MD, Ot I95. 89 OTHER HYPOTENSION 02/13/2019 ALEXA SOLIZ MD, Ot J44. 9 CHRONIC OBSTRUCTIVE PULMONARY DISEASE, U 02/13/2019 ALEXA SOLIZ MD, Ot K21. 9 GASTRO-ESOPHAGEAL REFLUX DISEASE WITHOUT 02/13/2019 ALEXA SOLIZ MD, Ot R00. 1 BRADYCARDIA, UNSPECIFIED 02/13/2019 ALEXA SOLIZ MD, Ot Z79. 01 PIT INSPECTOR (CURRENT) USE OF ANTICOAGULANT 02/13/2019 ALEXA SOLIZ MD, Ot Z79. 4 FPC (CURRENT) USE OF INSULIN 02/13/2019 ALEXA SOLIZ MD, Ot Z79. 82 PIT INSPECTOR (CURRENT) USE OF ASPIRIN 02/13/2019 ALEXA SOLIZ [...] Ot I25. 10 ATHSCL HEART DISEASE OF [place] CORONARY 02/15/2019 ALEXA SOLIZ MD, Ot I48. 91 UNSPECIFIED ATRIAL FIBRILLATION 02/15/2019 ALEXA SOLIZ MD, Ot I95. 89 OTHER HYPOTENSION 02/15/2019 ALEXA SOLIZ MD, Ot J44. 9 CHRONIC OBSTRUCTIVE PULMONARY DISEASE, U 02/15/2019 ALEXA SOLIZ MD, Ot K21. 9 GASTRO-ESOPHAGEAL REFLUX DISEASE WITHOUT 02/15/2019 ALEXA SOLIZ MD, Ot R00. 1 BRADYCARDIA, UNSPECIFIED 02/15/2019 ALEXA SOLIZ MD, Ot Z79. 01 FPC (CURRENT) USE OF ANTICOAGULANT 02/15/2019 ALEXA SOLIZ MD, Ot Z79. 4 FPC (CURRENT) USE OF INSULIN 02/15/2019 ALEXA SOLIZ MD, Ot Z79. 82 FPC (CURRENT) USE OF ASPIRIN 02/15/2019 ALEXA SOLIZ MD, Ot Z79.899 OTHER PIT INSPECTOR (CURRENT) DRUG THERAPY 02/15/2019 ALEXA SOLIZ MD, [...] Ot I25. 10 ATHSCL HEART DISEASE OF [place] CORONARY 02/24/2019 ALEXA SOLIZ MD, Ot I48. 91 UNSPECIFIED ATRIAL FIBRILLATION 02/24/2019 ALEXA SOLIZ MD, Ot I95. 89 OTHER HYPOTENSION 02/24/2019 ALEAX SOLIZ MD, Ot J44. 9 CHRONIC OBSTRUCTIVE PULMONARY DISEASE, U 02/24/2019 ALEXA SOLIZ MD, Ot K21. 9 GASTRO-ESOPHAGEAL REFLUX DISEASE WITHOUT 02/24/2019 ALEXA SOLIZ MD, Ot R00. 1 BRADYCARDIA, UNSPECIFIED 02/24/2019 ALEXA SOLIZ MD, Ot Z79. 01 PIT INSPECTOR (CURRENT) USE OF ANTICOAGULANT 02/24/2019 ALEXA SOLIZ MD, Ot Z79. 4 FPC (CURRENT) USE OF INSULIN 02/24/2019 ALEXA SOLIZ MD, Ot Z79. 82 FPC (CURRENT) USE OF ASPIRIN 02/24/2019 ALEXA SOLIZ MD, Ot Z79.899 OTHER FPC (CURRENT) DRUG THERAPY 02/24/2019 ALEXA SOLIZ MD, Ot Z82. 49 FAMILY HX OF ISCHEM HEART DIS AND OTH DI 02/24/2019 ALEXA SOLIZ MD, Ot Z86.711 PERSONAL HISTORY OF PULMONARY EMBOLISM 02/24/2019 ALEXA SOLIZ MD, Ot Z87.891 PERSONAL HISTORY OF NICOTINE DEPENDENCE 02/24/2019 ALEXA SOLIZ MD Ot Z90.710 ACQUIRED ABSENCE OF BOTH CERVIX AND UTER 02/24/2019 ALEXA SOLIZ MD Ot Z95. 5 PRESENCE OF CORONARY ANGIOPLASTY IMPLANT 02/24/2019 ALEXA SOLIZ MD Ot Z99. 89 DEPENDENCE ON OTHER ENABLING [...] ZACK Ot I25.10 ATHSCL HEART DISEASE OF [place] CORONARY 02/24/2019 GREGG DOLAN ZACK Ot I48.0 [...] 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 02/24/2019 ZACK LOPEZ DO Ot N17.9 ACUTE KIDNEY FAILURE, UNSPECIFIED 02/24/2019 LOPEZNISHI DOLAN ZACK Ot N18.9 CHRONIC KIDNEY DISEASE, UNSPECIFIED 02/24/2019 LOPEZ DO ZACK Ot Z79.4 PIT INSPECTOR (CURRENT) USE OF INSULIN 02/24/2019 LOPEZNISHI DOLAN ZACK Ot Z87.01 PERSONAL HISTORY OF PNEUMONIA (RECURRENT 02/24/2019 LOPEZNISHI DOLAN ZACK Ot Z87.09 PERSONAL HISTORY OF OTHER DISEASES OF TH 02/24/2019 LOPEZZACK ALMODOVAR DO Ot Z87.89 1 PERSONAL HISTORY OF NICOTINE DEPENDENCE 02/24/2019 LOPEZNISHI DOLAN ZACK Ot Z90.49 ACQUIRED ABSENCE OF OTHER SPECIFIED PART 02/24/2019 LOPEZNISHI DOLAN ZACK Ot Z90.71 0 ACQUIRED ABSENCE OF BOTH CERVIX AND UTER 02/24/2019 ZACK LOPEZ DO Ot Z95.5 PRESENCE OF CORONARY ANGIOPLASTY [...] Ot I25. 10 ATHSCL HEART DISEASE OF [place] CORONARY 02/27/2019 ALEXA SOLIZ MD, Ot I48. 91 UNSPECIFIED ATRIAL FIBRILLATION 02/27/2019 ALEXA SOLIZ MD, Ot I95. 89 OTHER HYPOTENSION 02/27/2019 ALEXA SOLIZ MD, Ot J44. 9 CHRONIC OBSTRUCTIVE PULMONARY DISEASE, U 02/27/2019 ALEXA SOLIZ MD, Ot K21. 9 GASTRO-ESOPHAGEAL REFLUX DISEASE WITHOUT 02/27/2019 ALEXA SOLIZ MD, Ot R00. 1 BRADYCARDIA, UNSPECIFIED 02/27/2019 ALEXA SOLIZ MD, Ot Z79. 01 PIT INSPECTOR (CURRENT) USE OF ANTICOAGULANT 02/27/2019 ALEXA SOLIZ MD, Ot Z79. 4 PIT INSPECTOR (CURRENT) USE OF INSULIN 02/27/2019 ALEXA SOLIZ MD, Ot Z79. 82 PIT INSPECTOR (CURRENT) USE OF ASPIRIN 02/27/2019 ALEXA SOLIZ MD, Ot Z79.899 OTHER PIT INSPECTOR (CURRENT) DRUG THERAPY 02/27/2019 ALEXA SOLIZ MD, [...] ILANA SANTAMARIA MD Ot I70.2 13 ATHSCL [place] ARTERIES OF EXTRM W INTRMT 03/01/2019 ILANA SANTAMARIA MD Ot I70.2 13 ATHSCL [place] ARTERIES OF EXTRM W INTRMT 03/01/2019 VAN LAWRENCE APRN Ot V76.12 OTH SCREEN MAMMO-MALIGN NEOPLASM OF [place] 03/01/2019 BOOM MILLER MD Ot E78. 5 HYPERLIPIDEMIA, UNSPECIFIED 03/01/2019 BOOM MILLER MD Ot I10 ESSENTIAL (PRIMARY) HYPERTENSION 03/01/2019 BOOM MILLER MD Ot I25. 10 ATHSCL HEART DISEASE OF [place] CORONARY 03/01/2019 BOOM MILLER MD Ot R07. 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 10 ATHSCL HEART DISEASE OF [place] CORONARY 03/01/2019 BOOM MILLER MD Ot I48. 91 UNSPECIFIED ATRIAL FIBRILLATION 03/01/2019 BOOM MILLER MD Ot R06. 83 SNORING 03/01/2019 BOOM MILLER MD Ot Z68. 35 BODY MASS INDEX (BMI) 35.0-35.9, ADULT 03/01/2019 BOOM MILLER MD, Ot Z79. 4 PIT INSPECTOR (CURRENT) USE OF INSULIN 03/01/2019 BOOM MILLER MD Ot Z79. 82 FPC (CURRENT) USE OF ASPIRIN 03/01/2019 BOOM MILLER MD Ot Z79.899 OTHER FPC (CURRENT) DRUG THERAPY 03/01/2019 BOOM MILLER MD, Ot Z95. 5 PRESENCE OF CORONARY ANGIOPLASTY IMPLANT 03/01/2019 BOOM MILLER MD, Ot I48. 0 PAROXYSMAL ATRIAL FIBRILLATION 03/01/2019 BOOM MILLER MD, Ot Z51. 81 ENCOUNTER FOR THERAPEUTIC DRUG LEVEL MON 03/01/2019 BOOM MILLER MD, Ot I48. 0 PAROXYSMAL ATRIAL FIBRILLATION 03/01/2019 BOOM MILLER MD, Ot Z79. 01 FPC (CURRENT) USE OF ANTICOAGULANT 03/01/2019 ILANA SANTAMARIA MD Ot I70.2 13 ATHSCL [place] ARTERIES OF EXTR W INTRVA 03/06/2019 ILANA SANTAMARIA MD Ot I70.2 13 ATHSCL [place] ARTERIES OF EXTRM W INTRMT 03/10/2019 ILANA SANTAMARIA MD Ot I70.9 0 UNSPECIFIED ATHEROSCLEROSIS 03/23/2019 ILANA SANTAMARIA MD Ot I70.2 13 ATHSCL [place] ARTERIES OF EXTRM W INTRMT 03/28/2019 ILANA [...] APNEA (ADULT) (PEDIATR 04/19/2019 IMER, LETTY E MAILHOUSE OPERATOR Ot J30.9 ALLERGIC RHINITIS, UNSPECIFIED 04/19/2019 IMER, LETTY E MAILHOUSE OPERATOR Ot J44.9 CHRONIC OBSTRUCTIVE PULMONARY DISEASE, U 04/19/2019 IMER, LETTY E MAILHOUSE OPERATOR Ot J81.1 CHRONIC PULMONARY EDEMA 04/19/2019 IMER, LETTY E MAILHOUSE OPERATOR Ot K74.60 UNSPECIFIED CIRRHOSIS OF LIVER 04/19/2019 IMER, LETTY E MAILHOUSE OPERATOR Ot R16.1 SPLENOMEGALY, NOT ELSEWHERE CLASSIFIED 04/19/2019 IMER, LETTY E MAILHOUSE OPERATOR Ot R18.8 OTHER ASCITES 04/19/2019 IMER, LETTY E MAILHOUSE OPERATOR Ot Z95.818 PRESENCE OF OTHER CARDIAC IMPLANTS AND G 05/02/2019 ILANA SANTAMARIA MD Ot I70.9 0 UNSPECIFIED ATHEROSCLEROSIS 05/16/2019 IMER, LETTY E MAILHOUSE OPERATOR Ot G47.33 OBSTRUCTIVE SLEEP APNEA (ADULT) (PEDIATR 05/16/2019 IMER, LETTY E MAILHOUSE OPERATOR Ot J30.9 ALLERGIC RHINITIS, UNSPECIFIED 05/16/2019 IMER, LETTY E MAILHOUSE OPERATOR Ot J44.9 CHRONIC OBSTRUCTIVE PULMONARY DISEASE, U 05/16/2019 IMER, LETTY E MAILHOUSE OPERATOR Ot J81.1 CHRONIC PULMONARY EDEMA 05/16/2019 IMER, LETTY E MAILHOUSE OPERATOR Ot K74.60 UNSPECIFIED CIRRHOSIS OF LIVER 05/16/2019 IMER, LETTY E MAILHOUSE OPERATOR Ot R16.1 SPLENOMEGALY, NOT ELSEWHERE CLASSIFIED 05/16/2019 IMER, LETTY E MAILHOUSE OPERATOR Ot R18.8 OTHER ASCITES 05/16/2019 IMER, LETTY E MAILHOUSE OPERATOR Ot Z95.818 PRESENCE OF OTHER CARDIAC IMPLANTS AND G 06/19/2019 BOOM MILLER MD Ot E78. 5 HYPERLIPIDEMIA, UNSPECIFIED 06/19/2019 BOOM MILLER MD Ot I10 ESSENTIAL (PRIMARY) HYPERTENSION 06/19/2019 BOOM MILLER MD Ot I25. 10 ATHSCL HEART DISEASE OF [place] CORONARY 06/19/2019 BOOM MILLER MD Ot R07. 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 10 ATHSCL HEART DISEASE OF [place] CORONARY 06/19/2019 BOOM MILLER MD Ot I48. 91 UNSPECIFIED ATRIAL FIBRILLATION 06/19/2019 BOOM MILLER MD Ot R06. 83 SNORING 06/19/2019 BOOM MILLER MD Ot Z68. 35 BODY MASS INDEX (BMI) 35.0-35.9, ADULT 06/19/2019 BOOM MILLER MD Ot Z79. 4 FPC (CURRENT) USE OF INSULIN 06/19/2019 BOOM MILLER MD Ot Z79. 82 PIT INSPECTOR (CURRENT) USE OF ASPIRIN 06/19/2019 BOOM MILLER MD Ot Z79.899 OTHER FPC (CURRENT) DRUG THERAPY 06/19/2019 BOOM MILLER MD Ot Z95. 5 PRESENCE OF CORONARY ANGIOPLASTY IMPLANT 06/19/2019 BOOM MILLER MD Ot I48. 0 PAROXYSMAL ATRIAL FIBRILLATION 06/19/2019 BOOM MILLER MD Ot Z51. 81 ENCOUNTER FOR THERAPEUTIC DRUG LEVEL MON 06/19/2019 BOOM MILLER MD, Ot I48. 0 PAROXYSMAL ATRIAL FIBRILLATION 06/19/2019 BOOM MILLER MD, Ot Z79. 01 PIT INSPECTOR (CURRENT) USE OF ANTICOAGULANT 06/19/2019 ILANA SANTAMARIA MD Ot I70.2 13 ATHSCL [place] ARTERIES OF EXTRM W INTRMT 06/19/2019 ILANA SANTAMARIA MD Ot I70.9 0 UNSPECIFIED ATHEROSCLEROSIS 06/19/2019 LETTY WILLAMS APRN Ot G47.33 OBSTRUCTIVE SLEEP APNEA (ADULT) (PEDIATR 06/19/2019 LETTY WILLAMS APRN Ot J30.9 ALLERGIC RHINITIS, UNSPECIFIED 06/19/2019 LETTY WILLAMS APRN Ot J44.9 CHRONIC OBSTRUCTIVE PULMONARY DISEASE, U 06/19/2019 LETTY WILLAMS MAILHOUSE OPERATOR Ot J81.1 CHRONIC PULMONARY EDEMA 06/19/2019 LETTY WILLAMS MAILHOUSE OPERATOR Ot K74.60 UNSPECIFIED CIRRHOSIS OF LIVER 06/19/2019 LETTY WILLAMS APRN Ot R16.1 SPLENOMEGALY, NOT ELSEWHERE CLASSIFIED 06/19/2019 LETTY WILLAMS APRN Ot R18.8 OTHER ASCITES 06/19/2019 LETTY WILLAMS APRN Ot Z95.818 PRESENCE OF OTHER CARDIAC IMPLANTS AND G 06/19/2019 ILANA SANTAMARIA MD Ot I70.9 0 UNSPECIFIED ATHEROSCLEROSIS 07/20/2019 ENMA PETERS APRN Ot 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 07/20/2019 ENMA PETERS APRN Ot J44.9 CHRONIC OBSTRUCTIVE PULMONARY DISEASE, U 07/21/2019 DOMENICA SMITH MD Ot D64 .9 ANEMIA, UNSPECIFIED 07/21/2019 DOMENICA SMITH MD Ot E11 .9 TYPE 2 DIABETES MELLITUS WITHOUT COMPLIC 07/21/2019 DOMENICA SMITH MD Ot E66 .2 MORBID (SEVERE) OBESITY WITH ALVEOLAR HY 07/21/2019 DOMENICA SMITH MD Ot E78.00 PURE HYPERCHOLESTEROLEMIA, UNSPECIFIED 07/21/2019 DOMENICA SMITH MD Ot G47.30 SLEEP APNEA, UNSPECIFIED 07/21/2019 DOMENICA SMITH MD Ot I11 .0 HYPERTENSIVE HEART DISEASE WITH HEART FA 07/21/2019 DOMENICA SMITH MD Ot I25.10 ATHSCL HEART DISEASE OF [place] CORONARY 07/21/2019 DOMENICA SMITH MD Ot I48.91 UNSPECIFIED ATRIAL FIBRILLATION 07/21/2019 DOMENICA SMITH MD Ot I50 .9 HEART FAILURE, UNSPECIFIED 07/21/2019 DOMENICA SMITH MD Ot J44 .9 CHRONIC OBSTRUCTIVE PULMONARY DISEASE, U 07/21/2019 DOMENICA SMITH MD Ot K21 .9 GASTRO-ESOPHAGEAL REFLUX DISEASE WITHOUT 07/21/2019 DOMENICA SMITH MD Ot K59.09 OTHER CONSTIPATION 07/21/2019 DOMENICA SMITH MD Ot M19.91 PRIMARY OSTEOARTHRITIS, UNSPECIFIED SITE 07/21/2019 DOMENICA SMITH MD Ot M25.551 PAIN IN RIGHT HIP 07/21/2019 DOMENICA SMITH MD Ot M25.552 PAIN IN LEFT HIP 07/21/2019 DOMENICA SMITH MD Ot R04 .0 EPISTAXIS 07/21/2019 DOMENICA SMITH MD, Ot R10.12 LEFT UPPER QUADRANT PAIN 07/21/2019 DOMENICA SMITH MD, Ot R55 SYNCOPE AND COLLAPSE 07/21/2019 DOMENICA SMITH MD, Ot R60 .9 EDEMA, UNSPECIFIED 07/21/2019 DOMENICA SMITH MD, Ot S02.85XA FRACTURE OF ORBIT, UNSPECIFIED, INIT 07/21/2019 DOMENICA SMITH MD, Ot W19.XXXA UNSPECIFIED FALL, INITIAL ENCOUNTER 07/21/2019 DOMENICA SMITH MD, Ot Y92.009 [facility] PL[facility] IN [facility] NON-INSTITUT (PRIVATE 07/21/2019 DOMENICA SMITH MD, Ot Z79 .4 [facility] (CURRENT) USE OF INSULIN 07/21/2019 DOMENICA SMITH MD, Ot Z86.711 PERSONAL HISTORY OF PULMONARY EMBOLISM 07/21/2019 DOMENICA SMITH MD, Ot Z87.891 PERSONAL HISTORY OF NICOTINE DEPENDENCE 07/21/2019 DOMENICA SMITH MD, Ot Z95 .5 PRESENCE OF CORONARY ANGIOPLASTY IMPLANT 07/21/2019 DOMENICA SMITH MD, Ot Z97 .8 PRESENCE OF OTHER SPECIFIED DEVICES 07/21/2019 DOMENICA SMITH MD, Ot Z99.81 DEPENDENCE ON SUPPLEMENTAL OXYGEN 07/22/2019 DOMENICA SMITH MD, Ot D64 .9 ANEMIA, UNSPECIFIED 07/22/2019 DOMENICA SMITH MD, Ot E11 .9 TYPE 2 DIABETES MELLITUS WITHOUT COMPLIC 07/22/2019 DOMENICA SMITH MD, Ot E66 .2 MORBID (SEVERE) OBESITY WITH ALVEOLAR HY 07/22/2019 DOMENICA SMITH MD, Ot E78.00 PURE HYPERCHOLESTEROLEMIA, UNSPECIFIED 07/22/2019 DOMENICA SMITH MD, Ot G47.30 SLEEP APNEA, UNSPECIFIED 07/22/2019 DOMENICA SMITH MD, Ot I11 .0 HYPERTENSIVE HEART DISEASE WITH HEART FA 07/22/2019 DOMENICA SMITH MD, Ot I25.10 ATHSCL HEART DISEASE OF [place] CORONARY 07/22/2019 DOMENICA SMITH MD, Ot I48.91 UNSPECIFIED ATRIAL FIBRILLATION 07/22/2019 DOMENICA SMITH MD, Ot I50 .9 HEART FAILURE, UNSPECIFIED 07/22/2019 DOMENICA SMITH MD, Ot J44 .9 CHRONIC OBSTRUCTIVE PULMONARY DISEASE, U 07/22/2019 DOMENICA SMITH MD, Ot K21 .9 GASTRO-ESOPHAGEAL REFLUX DISEASE WITHOUT 07/22/2019 DOMENICA SMITH MD, Ot K59.09 OTHER CONSTIPATION 07/22/2019 DOMENICA SMITH MD, Ot M19.91 PRIMARY OSTEOARTHRITIS, UNSPECIFIED SITE 07/22/2019 DOMENICA SMITH MD, Ot M25.551 PAIN IN RIGHT HIP 07/22/2019 DOMENICA SMITH MD, Ot M25.552 PAIN IN LEFT HIP 07/22/2019 DOMENICA SMITH MD Ot R04 .0 EPISTAXIS 07/22/2019 DOMENICA SMITH MD, Ot R10.12 LEFT UPPER QUADRANT PAIN 07/22/2019 DOMENICA SMITH MD, Ot R55 SYNCOPE AND COLLAPSE 07/22/2019 DOMENICA SMITH MD, Ot R60 .9 EDEMA, UNSPECIFIED 07/22/2019 DOMENICA SMITH MD, Ot S02.85XA FRACTURE OF ORBIT, UNSPECIFIED, INIT 07/22/2019 DOMENICA SMITH MD, Ot W19.XXXA UNSPECIFIED FALL, INITIAL ENCOUNTER 07/22/2019 DOMENICA SMITH MD, Ot Y92.009 [facility] IN [facility] NON-INSTITUT (PRIVATE 07/22/2019 DOMENICA SMITH MD, Ot Z79 .4 PIT INSPECTOR (CURRENT) USE OF INSULIN 07/22/2019 DOMENICA SMITH MD, Ot Z86.711 PERSONAL HISTORY OF PULMONARY EMBOLISM 07/22/2019 DOMENICA SMITH MD, Ot Z87.891 PERSONAL HISTORY OF NICOTINE DEPENDENCE 07/22/2019 DOMENICA SMITH MD, Ot Z95 .5 PRESENCE OF CORONARY ANGIOPLASTY IMPLANT 07/22/2019 DOMENICA SMITH MD, Ot Z97 .8 PRESENCE OF OTHER SPECIFIED DEVICES 07/22/2019 DOMENICA SMITH MD, Ot Z99.81 DEPENDENCE ON SUPPLEMENTAL OXYGEN 07/23/2019 DOMENICA SMITH MD, Ot D64 .9 ANEMIA, UNSPECIFIED 07/23/2019 DOMENICA SMITH MD Ot E11 .9 TYPE 2 DIABETES MELLITUS WITHOUT COMPLIC 07/23/2019 SARAH MD, DOMENICA N Ot E66 .2 MORBID (SEVERE) OBESITY WITH ALVEOLAR HY 07/23/2019 DOMENICA SMITH MD Ot E78.00 PURE HYPERCHOLESTEROLEMIA, UNSPECIFIED 07/23/2019 DOMENICA SMITH MD Ot G47.30 SLEEP APNEA, UNSPECIFIED 07/23/2019 DOMENICA SMITH MD Ot I11 .0 HYPERTENSIVE HEART DISEASE WITH HEART FA 07/23/2019 DOMENICA SMITH MD Ot I25.10 ATHSCL HEART DISEASE OF [place] CORONARY 07/23/2019 DOMENICA SMITH MD Ot I48.91 UNSPECIFIED ATRIAL FIBRILLATION 07/23/2019 DOMENICA SMITH MD Ot I50 .9 HEART FAILURE, UNSPECIFIED 07/23/2019 DOMENICA SMITH MD Ot J44 .9 CHRONIC OBSTRUCTIVE PULMONARY DISEASE, U 07/23/2019 DOMENICA SMITH MD Ot K21 .9 GASTRO-ESOPHAGEAL REFLUX DISEASE WITHOUT 07/23/2019 DOMENICA SMITH MD Ot K59.09 OTHER CONSTIPATION 07/23/2019 DOMENICA SMITH MD Ot M19.91 PRIMARY OSTEOARTHRITIS, UNSPECIFIED SITE 07/23/2019 DOMENICA SMITH MD Ot M25.551 PAIN IN RIGHT HIP 07/23/2019 DOMENICA SMITH MD Ot M25.552 PAIN IN LEFT HIP 07/23/2019 DOMENICA SMITH MD Ot R04 .0 EPISTAXIS 07/23/2019 DOMENICA SMITH MD Ot R10.12 LEFT UPPER QUADRANT PAIN 07/23/2019 DOMENICA SMITH MD Ot R55 SYNCOPE AND COLLAPSE 07/23/2019 DOMENICA SMITH MD Ot R60 .9 EDEMA, UNSPECIFIED 07/23/2019 DOMENICA SMITH MD Ot S02.85XA FRACTURE OF ORBIT, UNSPECIFIED, INIT 07/23/2019 DOMENICA SMITH MD Ot W19.XXXA UNSPECIFIED FALL, INITIAL ENCOUNTER 07/23/2019 DOMENICA SMITH MD Ot Y92.009 [facility] IN [facility] NON-INSTITUT (PRIVATE 07/23/2019 DOMENICA SMITH MD, Ot Z79 .4 [facility] (CURRENT) USE OF INSULIN 07/23/2019 DOMENICA SMITH MD Ot Z86.711 PERSONAL HISTORY OF PULMONARY EMBOLISM 07/23/2019 DOMENICA SMITH MD, Ot Z87.891 PERSONAL HISTORY OF NICOTINE DEPENDENCE 07/23/2019 DOMENICA SMITH MD Ot Z95 .5 PRESENCE OF CORONARY ANGIOPLASTY IMPLANT 07/23/2019 DOMENICA SMITH MD, Ot Z97 .8 PRESENCE OF OTHER SPECIFIED DEVICES 07/23/2019 DOMENICA SMITH MD Ot Z99.81 DEPENDENCE ON SUPPLEMENTAL OXYGEN 07/23/2019 DOMENICA SMITH MD Ot D64 .9 ANEMIA, UNSPECIFIED 07/23/2019 DOMENICA SMITH MD Ot E11 .9 TYPE 2 DIABETES MELLITUS WITHOUT COMPLIC 07/23/2019 DOMENICA SMITH MD Ot E66 .2 MORBID (SEVERE) OBESITY WITH ALVEOLAR HY 07/23/2019 DOMENICA SMITH MD Ot E78.00 PURE HYPERCHOLESTEROLEMIA, UNSPECIFIED 07/23/2019 DOMENICA SMITH MD Ot G47.30 SLEEP APNEA, UNSPECIFIED 07/23/2019 DOMENICA SMITH MD Ot I11 .0 HYPERTENSIVE HEART DISEASE WITH HEART FA 07/23/2019 DOMENICA SMITH MD Ot I25.10 ATHSCL HEART DISEASE OF [place] CORONARY 07/23/2019 DOMENICA SMITH MD Ot I48.91 UNSPECIFIED ATRIAL FIBRILLATION 07/23/2019 DOMENICA SMITH MD, Ot I50 .9 HEART FAILURE, UNSPECIFIED 07/23/2019 DOMENICA SMITH MD, Ot J44 .9 CHRONIC OBSTRUCTIVE PULMONARY DISEASE, U 07/23/2019 DOMENICA SMITH MD Ot K21 .9 GASTRO-ESOPHAGEAL REFLUX DISEASE WITHOUT 07/23/2019 DOMENICA SMITH MD Ot K59.09 OTHER CONSTIPATION 07/23/2019 DOMENICA SMITH MD Ot M19.91 PRIMARY OSTEOARTHRITIS, UNSPECIFIED SITE 07/23/2019 DOMENICA SMITH MD Ot M25.551 PAIN IN RIGHT HIP 07/23/2019 DOMENICA SMITH MD Ot M25.552 PAIN IN LEFT HIP 07/23/2019 DOMENICA SMITH MD Ot R04 .0 EPISTAXIS 07/23/2019 DOMENICA SMITH MD Ot R10.12 LEFT UPPER QUADRANT PAIN 07/23/2019 DOMENICA SMITH MD Ot R55 SYNCOPE AND COLLAPSE 07/23/2019 DOMENICA SMITH MD, Ot R60 .9 EDEMA, UNSPECIFIED 07/23/2019 DOMENICA SMITH MD, Ot S02.85XA FRACTURE OF ORBIT, UNSPECIFIED, INIT 07/23/2019 DOMENICA SMITH MD, Ot W19.XXXA UNSPECIFIED FALL, INITIAL ENCOUNTER 07/23/2019 DOMENICA SMITH MD, Ot Y92.009 [facility] IN [facility] NON-INSTITUT (PRIVATE 07/23/2019 DOMENICA SMITH MD, Ot Z79 .4 PIT INSPECTOR (CURRENT) USE OF INSULIN 07/23/2019 DOMENICA SMITH MD, Ot Z86.711 PERSONAL HISTORY OF PULMONARY EMBOLISM 07/23/2019 DOMENICA SMITH MD, Ot Z87.891 PERSONAL HISTORY OF NICOTINE DEPENDENCE 07/23/2019 DOMENICA SMITH MD, Ot Z95 .5 PRESENCE OF CORONARY ANGIOPLASTY IMPLANT 07/23/2019 DOMENICA SMITH MD, Ot Z97 .8 PRESENCE OF OTHER SPECIFIED DEVICES 07/23/2019 DOMENICA SMITH MD Ot Z99.81 DEPENDENCE ON SUPPLEMENTAL OXYGEN 07/23/2019 DOMENICA SMITH MD, Ot D64 .9 ANEMIA, UNSPECIFIED 07/23/2019 DOMENICA SMITH MD, Ot E11 .9 TYPE 2 DIABETES MELLITUS WITHOUT COMPLIC 07/23/2019 DOMENICA SMITH MD Ot E66 .2 MORBID (SEVERE) OBESITY WITH ALVEOLAR HY 07/23/2019 DOMENICA SMITH MD, Ot E78.00 PURE HYPERCHOLESTEROLEMIA, UNSPECIFIED 07/23/2019 DOMENICA SMITH MD, Ot G47.30 SLEEP APNEA, UNSPECIFIED 07/23/2019 DOMENICA SMITH MD, Ot I11 .0 HYPERTENSIVE HEART DISEASE WITH HEART FA 07/23/2019 DOMENICA SMITH MD, Ot I25.10 ATHSCL HEART DISEASE OF [place] CORONARY 07/23/2019 DOMENICA SMITH MD, Ot I48.91 UNSPECIFIED ATRIAL FIBRILLATION 07/23/2019 DOMENICA SMITH MD, Ot I50 .9 HEART FAILURE, UNSPECIFIED 07/23/2019 DOMENICA SMITH MD, Ot J44 .9 CHRONIC OBSTRUCTIVE PULMONARY DISEASE, U 07/23/2019 DOMENICA SMITH MD, Ot K21 .9 GASTRO-ESOPHAGEAL REFLUX DISEASE WITHOUT 07/23/2019 DOMENICA SMITH MD, Ot K59.09 OTHER CONSTIPATION 07/23/2019 DOMENICA SMITH MD, Ot M19.91 PRIMARY OSTEOARTHRITIS, UNSPECIFIED SITE 07/23/2019 DOMENICA SMITH MD, Ot M25.551 PAIN IN RIGHT HIP 07/23/2019 DOMENICA SMITH MD, Ot M25.552 PAIN IN LEFT HIP 07/23/2019 DOMENICA SMITH MD Ot R04 .0 EPISTAXIS 07/23/2019 DOMENICA SMITH MD Ot R10.12 LEFT UPPER QUADRANT PAIN 07/23/2019 DOMENICA SMITH MD Ot R55 SYNCOPE AND COLLAPSE 07/23/2019 DOMENICA SMITH MD, Ot R60 .9 EDEMA, UNSPECIFIED 07/23/2019 DOMENICA SMITH MD, Ot S02.85XA FRACTURE OF ORBIT, UNSPECIFIED, INIT 07/23/2019 DOMENICA SMITH MD, Ot W19.XXXA UNSPECIFIED FALL, INITIAL ENCOUNTER 07/23/2019 DOMENICA SMITH MD, Ot Y92.009 [facility] NON-INSTITUT (PRIVATE 07/23/2019 DOMENICA SMITH MD, Ot Z79 .4 [facility] (CURRENT) USE OF INSULIN 07/23/2019 DOMENICA SMITH MD, Ot Z86.711 PERSONAL HISTORY OF PULMONARY EMBOLISM 07/23/2019 DOMENICA SMITH MD, Ot Z87.891 PERSONAL HISTORY OF NICOTINE DEPENDENCE 07/23/2019 DOMENICA SMITH MD, Ot Z95 .5 PRESENCE OF CORONARY ANGIOPLASTY IMPLANT 07/23/2019 DOMENICA SMITH MD, Ot Z97 .8 PRESENCE OF OTHER SPECIFIED DEVICES 07/23/2019 DOMENICA SMITH MD, Ot Z99.81 DEPENDENCE ON SUPPLEMENTAL OXYGEN 07/24/2019 DOMENICA SMITH MD, Ot D64 .9 ANEMIA, UNSPECIFIED 07/24/2019 DOMENICA SMITH MD Ot E11 .9 TYPE 2 DIABETES MELLITUS WITHOUT COMPLIC 07/24/2019 DOMENICA SMITH MD Ot E66 .2 MORBID (SEVERE) OBESITY WITH ALVEOLAR HY 07/24/2019 DOMENICA SMITH MD Ot E78.00 PURE HYPERCHOLESTEROLEMIA, UNSPECIFIED 07/24/2019 DOMENICA SMITH MD Ot G47.30 SLEEP APNEA, UNSPECIFIED 07/24/2019 DOMENICA SMITH MD Ot I11 .0 HYPERTENSIVE HEART DISEASE WITH HEART FA 07/24/2019 DOMENICA SMITH MD Ot I25.10 ATHSCL HEART DISEASE OF [place] CORONARY 07/24/2019 DOMENICA SMITH MD Ot I48.91 UNSPECIFIED ATRIAL FIBRILLATION 07/24/2019 DOMENICA SMITH MD Ot I50 .9 HEART FAILURE, UNSPECIFIED 07/24/2019 DOMENICA SMITH MD Ot J44 .9 CHRONIC OBSTRUCTIVE PULMONARY DISEASE, U 07/24/2019 DOMENICA SMITH MD Ot K21 .9 GASTRO-ESOPHAGEAL REFLUX DISEASE WITHOUT 07/24/2019 DOMENICA SMITH MD Ot K59.09 OTHER CONSTIPATION 07/24/2019 DOMENICA SMITH MD Ot M19.91 PRIMARY OSTEOARTHRITIS, UNSPECIFIED SITE 07/24/2019 DOMENICA SMITH MD Ot M25.551 PAIN IN RIGHT HIP 07/24/2019 DOMENICA SMITH MD Ot M25.552 PAIN IN LEFT HIP 07/24/2019 DOMENICA SMITH MD Ot R04 .0 EPISTAXIS 07/24/2019 DOMENICA SMITH MD Ot R10.12 LEFT UPPER QUADRANT PAIN 07/24/2019 DOMENICA SMITH MD Ot R55 SYNCOPE AND COLLAPSE 07/24/2019 DOMENICA SMITH MD Ot R60 .9 EDEMA, UNSPECIFIED 07/24/2019 DOMENICA SMITH MD Ot S02.85XA FRACTURE OF ORBIT, UNSPECIFIED, INIT 07/24/2019 DOMENICA SMITH MD Ot W19.XXXA UNSPECIFIED FALL, INITIAL ENCOUNTER 07/24/2019 DOMENICA SMITH MD Ot Y92.009 [facility] IN [facility] NON-INSTITUT (PRIVATE 07/24/2019 DOMENICA SMITH MD Ot Z79 .4 FPC (CURRENT) USE OF INSULIN 07/24/2019 DOMENICA SMITH MD Ot Z86.711 PERSONAL HISTORY OF PULMONARY EMBOLISM 07/24/2019 DOMENICA SMITH MD, Ot Z87.891 PERSONAL HISTORY OF NICOTINE DEPENDENCE 07/24/2019 DOMENICA SMITH MD, Ot Z95 .5 PRESENCE OF CORONARY ANGIOPLASTY IMPLANT 07/24/2019 DOMENICA SMITH MD, Ot Z97 .8 PRESENCE OF OTHER SPECIFIED DEVICES 07/24/2019 DOMENICA SMITH MD, Ot Z99.81 DEPENDENCE ON SUPPLEMENTAL OXYGEN 07/24/2019 DOMENICA SMITH MD Ot D64 .9 ANEMIA, UNSPECIFIED 07/24/2019 DOMENICA SMITH MD Ot E11 .9 TYPE 2 DIABETES MELLITUS WITHOUT COMPLIC 07/24/2019 DOMENICA SMITH MD Ot E66 .2 MORBID (SEVERE) OBESITY WITH ALVEOLAR HY 07/24/2019 DOMENICA SMITH MD, Ot E78.00 PURE HYPERCHOLESTEROLEMIA, UNSPECIFIED 07/24/2019 DOMENICA SMITH MD, Ot G47.30 SLEEP APNEA, UNSPECIFIED 07/24/2019 DOMENICA SMITH MD Ot I11 .0 HYPERTENSIVE HEART DISEASE WITH HEART FA 07/24/2019 DOMENICA SMITH MD Ot I25.10 ATHSCL HEART DISEASE OF [place] CORONARY 07/24/2019 DOMENICA SMITH MD Ot I48.91 UNSPECIFIED ATRIAL FIBRILLATION 07/24/2019 DOMENICA SMITH MD, Ot I50 .9 HEART FAILURE, UNSPECIFIED 07/24/2019 DOMENICA SMITH MD Ot J44 .9 CHRONIC OBSTRUCTIVE PULMONARY DISEASE, U 07/24/2019 DOMENICA SMITH MD Ot K21 .9 GASTRO-ESOPHAGEAL REFLUX DISEASE WITHOUT 07/24/2019 DOMENICA SMITH MD Ot K59.09 OTHER CONSTIPATION 07/24/2019 DOMENICA SMITH MD Ot M19.91 PRIMARY OSTEOARTHRITIS, UNSPECIFIED SITE 07/24/2019 DOMENICA SMITH MD Ot M25.551 PAIN IN RIGHT HIP 07/24/2019 DOMENICA SMITH MD Ot M25.552 PAIN IN LEFT HIP 07/24/2019 DOMENICA SMITH MD Ot R04 .0 EPISTAXIS 07/24/2019 DOMENICA SMITH MD Ot R10.12 LEFT UPPER QUADRANT PAIN 07/24/2019 DOMENICA SMITH MD Ot R55 SYNCOPE AND COLLAPSE 07/24/2019 DOMENICA SMITH MD Ot R60 .9 EDEMA, UNSPECIFIED 07/24/2019 DOMENICA SMITH MD, Ot S02.85XA FRACTURE OF ORBIT, UNSPECIFIED, INIT 07/24/2019 DOMENICA SMITH MD, Ot W19.XXXA UNSPECIFIED FALL, INITIAL ENCOUNTER 07/24/2019 DOMENICA SMITH MD, Ot Y92.009 [facility] IN [facility] NON-INSTITUT (PRIVATE 07/24/2019 DOMENICA SMITH MD, Ot Z79 .4 PIT INSPECTOR (CURRENT) USE OF INSULIN 07/24/2019 DOMENICA SMITH MD, Ot Z86.711 PERSONAL HISTORY OF PULMONARY EMBOLISM 07/24/2019 DOMENICA SMITH MD, Ot Z87.891 PERSONAL HISTORY OF NICOTINE DEPENDENCE 07/24/2019 DOMENICA SMITH MD, Ot Z95 .5 PRESENCE OF CORONARY ANGIOPLASTY IMPLANT 07/24/2019 DOMENICA SMITH MD, Ot Z97 .8 PRESENCE OF OTHER SPECIFIED DEVICES 07/24/2019 DOMENICA SMITH MD, Ot Z99.81 DEPENDENCE ON SUPPLEMENTAL OXYGEN 07/24/2019 DOMENICA SMITH MD, Ot D64 .9 ANEMIA, UNSPECIFIED 07/24/2019 DOMENICA SMITH MD, Ot E11 .9 TYPE 2 DIABETES MELLITUS WITHOUT COMPLIC 07/24/2019 DOMENICA SMITH MD Ot E66 .2 MORBID (SEVERE) OBESITY WITH ALVEOLAR HY 07/24/2019 DOMENICA SIMTH MD Ot E78.00 PURE HYPERCHOLESTEROLEMIA, UNSPECIFIED 07/24/2019 DOMENICA SMITH MD Ot G47.30 SLEEP APNEA, UNSPECIFIED 07/24/2019 DOMENICA SMITH MD Ot I11 .0 HYPERTENSIVE HEART DISEASE WITH HEART FA 07/24/2019 DOMENICA SMITH MD, Ot I25.10 ATHSCL HEART DISEASE OF [place] CORONARY 07/24/2019 DOMENICA SMITH MD, Ot I48.91 UNSPECIFIED ATRIAL FIBRILLATION 07/24/2019 DOMENICA SMITH MD, Ot I50 .9 HEART FAILURE, UNSPECIFIED 07/24/2019 DOMENICA SMITH MD, Ot J44 .9 CHRONIC OBSTRUCTIVE PULMONARY DISEASE, U 07/24/2019 DOMENICA SMITH MD Ot K21 .9 GASTRO-ESOPHAGEAL REFLUX DISEASE WITHOUT 07/24/2019 DOMENICA SMITH MD Ot K59.09 OTHER CONSTIPATION 07/24/2019 DOMENICA SMITH MD Ot M19.91 PRIMARY OSTEOARTHRITIS, UNSPECIFIED SITE 07/24/2019 DOMENICA SMITH MD Ot M25.551 PAIN IN RIGHT HIP 07/24/2019 DOMENICA SMITH MD Ot M25.552 PAIN IN LEFT HIP 07/24/2019 DOMENICA SMITH MD Ot R04 .0 EPISTAXIS 07/24/2019 DOMENICA SMITH MD Ot R10.12 LEFT UPPER QUADRANT PAIN 07/24/2019 DOMENICA SMITH MD Ot R55 SYNCOPE AND COLLAPSE 07/24/2019 DOMENICA SMITH MD Ot R60 .9 EDEMA, UNSPECIFIED 07/24/2019 DOMENICA SMITH MD Ot S02.85XA FRACTURE OF ORBIT, UNSPECIFIED, INIT 07/24/2019 DOMENICA SMITH MD Ot W19.XXXA UNSPECIFIED FALL, INITIAL ENCOUNTER 07/24/2019 DOMENICA SMITH MD Ot Y92.009 [facility] IN [facility] NON-INSTITUT (PRIVATE 07/24/2019 DOMENICA SMITH MD, Ot Z79 .4 FPC (CURRENT) USE OF INSULIN 07/24/2019 DOMENICA SMITH MD Ot Z86.711 PERSONAL HISTORY OF PULMONARY EMBOLISM 07/24/2019 DOMENICA SMITH MD, Ot Z87.891 PERSONAL HISTORY OF NICOTINE DEPENDENCE 07/24/2019 DOMENICA SMITH MD Ot Z95 .5 PRESENCE OF CORONARY ANGIOPLASTY IMPLANT 07/24/2019 DOMENICA SMITH MD Ot Z97 .8 PRESENCE OF OTHER SPECIFIED DEVICES 07/24/2019 DOMENICA SMITH MD Ot Z99.81 DEPENDENCE ON SUPPLEMENTAL OXYGEN 07/25/2019 DOMENICA SMITH MD Ot D64 .9 ANEMIA, UNSPECIFIED 07/25/2019 DOMENICA SMITH MD Ot E11 .9 TYPE 2 DIABETES MELLITUS WITHOUT COMPLIC 07/25/2019 DOMENICA SMITH MD Ot E66 .2 MORBID (SEVERE) OBESITY WITH ALVEOLAR HY 07/25/2019 DOMENICA SMITH MD Ot E78.00 PURE HYPERCHOLESTEROLEMIA, UNSPECIFIED 07/25/2019 DOMENICA SMITH MD Ot G47.30 SLEEP APNEA, UNSPECIFIED 07/25/2019 DOMENICA SMITH MD Ot I11 .0 HYPERTENSIVE HEART DISEASE WITH HEART FA 07/25/2019 DOMENICA SMITH MD Ot I25.10 ATHSCL HEART DISEASE OF [place] CORONARY 07/25/2019 DOMENICA SMITH MD Ot I48.91 UNSPECIFIED ATRIAL FIBRILLATION 07/25/2019 DOMENICA SMITH MD Ot I50 .9 HEART FAILURE, UNSPECIFIED 07/25/2019 DOMENICA SMITH MD Ot J44 .9 CHRONIC OBSTRUCTIVE PULMONARY DISEASE, U 07/25/2019 DOMENICA SMITH MD Ot K21 .9 GASTRO-ESOPHAGEAL REFLUX DISEASE WITHOUT 07/25/2019 DOMENICA SMITH MD Ot K59.09 OTHER CONSTIPATION 07/25/2019 DOMENICA SMITH MD Ot M19.91 PRIMARY OSTEOARTHRITIS, UNSPECIFIED SITE 07/25/2019 DOMENICA SMITH MD Ot M25.551 PAIN IN RIGHT HIP 07/25/2019 DOMENICA SMITH MD Ot M25.552 PAIN IN LEFT HIP 07/25/2019 DOMENICA SMITH MD Ot R04 .0 EPISTAXIS 07/25/2019 DOMENICA SMITH MD Ot R10.12 LEFT UPPER QUADRANT PAIN 07/25/2019 DOMENICA SMITH MD Ot R55 SYNCOPE AND COLLAPSE 07/25/2019 DOMENICA SMITH MD Ot R60 .9 EDEMA, UNSPECIFIED 07/25/2019 DOMENICA SMITH MD Ot S02.85XA FRACTURE OF ORBIT, UNSPECIFIED, INIT 07/25/2019 DOMENICA SMITH MD Ot W19.XXXA UNSPECIFIED FALL, INITIAL ENCOUNTER 07/25/2019 DOMENICA SMITH MD Ot Y92.009 [facility] IN [facility] NON-INSTITUT (PRIVATE 07/25/2019 DOMENICA SMITH MD, Ot Z79 .4 FPC (CURRENT) USE OF INSULIN 07/25/2019 DOMENICA SMITH MD Ot Z86.711 PERSONAL HISTORY OF PULMONARY EMBOLISM 07/25/2019 DOMENICA SMITH MD Ot Z87.891 PERSONAL HISTORY OF NICOTINE DEPENDENCE 07/25/2019 DOMENICA SMITH MD Ot Z95 .5 PRESENCE OF CORONARY ANGIOPLASTY IMPLANT 07/25/2019 DOMENICA SMITH MD, Ot Z97 .8 PRESENCE OF OTHER SPECIFIED DEVICES 07/25/2019 DOMENICA SMITH MD Ot Z99.81 DEPENDENCE ON SUPPLEMENTAL OXYGEN 07/26/2019 DOMENICA SMITH MD Ot D64 .9 ANEMIA, UNSPECIFIED 07/26/2019 DOMENICA SMITH MD Ot E11 .9 TYPE 2 DIABETES MELLITUS WITHOUT COMPLIC 07/26/2019 DOMENICA SMITH MD Ot E66 .2 MORBID (SEVERE) OBESITY WITH ALVEOLAR HY 07/26/2019 DOMENICA SMITH MD Ot E78.00 PURE HYPERCHOLESTEROLEMIA, UNSPECIFIED 07/26/2019 DOMENICA SMITH MD Ot G47.30 SLEEP APNEA, UNSPECIFIED 07/26/2019 DOMENICA SMITH MD Ot I11 .0 HYPERTENSIVE HEART DISEASE WITH HEART FA 07/26/2019 DOMENICA SMITH MD Ot I25.10 ATHSCL HEART DISEASE OF [place] CORONARY 07/26/2019 DOMENICA SMITH MD Ot I48.91 UNSPECIFIED ATRIAL FIBRILLATION 07/26/2019 DOMENICA SMITH MD Ot I50 .9 HEART FAILURE, UNSPECIFIED 07/26/2019 DOMENICA SMITH MD Ot J44 .9 CHRONIC OBSTRUCTIVE PULMONARY DISEASE, U 07/26/2019 DOMENICA SMITH MD Ot K21 .9 GASTRO-ESOPHAGEAL REFLUX DISEASE WITHOUT 07/26/2019 DOMENICA SMITH MD Ot K59.09 OTHER CONSTIPATION 07/26/2019 DOMENICA SMITH MD Ot M19.91 PRIMARY OSTEOARTHRITIS, UNSPECIFIED SITE 07/26/2019 DOMENICA SMITH MD Ot M25.551 PAIN IN RIGHT HIP 07/26/2019 DOMENICA SMITH MD Ot M25.552 PAIN IN LEFT HIP 07/26/2019 DOMENICA SMITH MD Ot R04 .0 EPISTAXIS 07/26/2019 DOMENICA SMITH MD Ot R10.12 LEFT UPPER QUADRANT PAIN 07/26/2019 DOMENICA SMITH MD Ot R55 SYNCOPE AND COLLAPSE 07/26/2019 DOMENICA SMITH MD Ot R60 .9 EDEMA, UNSPECIFIED 07/26/2019 DOMENICA SMITH MD Ot S02.85XA FRACTURE OF ORBIT, UNSPECIFIED, INIT 07/26/2019 DOMENICA SMITH MD, Ot W19.XXXA UNSPECIFIED FALL, INITIAL ENCOUNTER 07/26/2019 DOMENICA SMITH MD, Ot Y92.009 [facility] IN [facility] NON-INSTITUT (PRIVATE 07/26/2019 DOMENICA SMITH MD, Ot Z79 .4 [facility] (CURRENT) USE OF INSULIN 07/26/2019 DOMENICA SMITH MD, Ot Z86.711 PERSONAL HISTORY OF PULMONARY EMBOLISM 07/26/2019 DOMENICA SMITH MD, Ot Z87.891 PERSONAL HISTORY OF NICOTINE DEPENDENCE 07/26/2019 DOMENICA SMITH MD, Ot Z95 .5 PRESENCE OF CORONARY ANGIOPLASTY IMPLANT 07/26/2019 DOMENICA SMITH MD, Ot Z97 .8 PRESENCE OF OTHER SPECIFIED DEVICES 07/26/2019 DOMENICA SMITH MD, Ot Z99.81 DEPENDENCE ON SUPPLEMENTAL OXYGEN 07/26/2019 DOMENICA SMITH MD, Ot D62 ACUTE POSTHEMORRHAGIC ANEMIA 07/26/2019 DOMENICA SMITH MD, Ot D63 .8 ANEMIA IN OTHER CHRONIC DISEASES CLASSIF 07/26/2019 DOMENICA SMITH MD, Ot D64 .9 ANEMIA, UNSPECIFIED 07/26/2019 DOMENICA SMITH MD, Ot E11 .9 TYPE 2 DIABETES MELLITUS WITHOUT COMPLIC 07/26/2019 DOMENICA SMITH MD Ot E66 .2 MORBID (SEVERE) OBESITY WITH ALVEOLAR HY 07/26/2019 DOMENICA SMITH MD Ot E78.00 PURE HYPERCHOLESTEROLEMIA, UNSPECIFIED 07/26/2019 DOMENICA SMITH MD, Ot G47.30 SLEEP APNEA, UNSPECIFIED 07/26/2019 DOMENICA SMITH MD Ot I11 .0 HYPERTENSIVE HEART DISEASE WITH HEART FA 07/26/2019 DOMENICA SMITH MD Ot I25.10 ATHSCL HEART DISEASE OF [place] CORONARY 07/26/2019 DOMENICA SMITH MD, Ot I48.20 CHRONIC ATRIAL FIBRILLATION, UNSPECIFIED 07/26/2019 DOMENICA SMITH MD, Ot I48.91 UNSPECIFIED ATRIAL FIBRILLATION 07/26/2019 DOMENICA SMITH MD, Ot I50 .9 HEART FAILURE, UNSPECIFIED 07/26/2019 SARAH MD, DOMENICA N Ot J44 .9 CHRONIC OBSTRUCTIVE PULMONARY DISEASE, U 07/26/2019 DOMENICA SMITH MD, Ot K21 .9 GASTRO-ESOPHAGEAL REFLUX DISEASE WITHOUT 07/26/2019 DOMENICA SMITH MD, Ot K25 .4 CHRONIC OR UNSPECIFIED GASTRIC ULCER WIT 07/26/2019 DOMENICA SMITH MD Ot K59.09 OTHER CONSTIPATION 07/26/2019 DOMENICA SMITH MD, Ot K63 .5 POLYP OF COLON 07/26/2019 DOMENICA SMITH MD Ot M19.91 PRIMARY OSTEOARTHRITIS, UNSPECIFIED SITE 07/26/2019 DOMENICA SMITH MD, Ot M25.551 PAIN IN RIGHT HIP 07/26/2019 DOMENICA SMITH MD, Ot M25.552 PAIN IN LEFT HIP 07/26/2019 DOMENICA SMITH MD Ot R04 .0 EPISTAXIS 07/26/2019 DOMENICA SMITH MD Ot R10.12 LEFT UPPER QUADRANT PAIN 07/26/2019 DOMENICA SMITH MD Ot R55 SYNCOPE AND COLLAPSE 07/26/2019 DOMENICA SMITH MD Ot R60 .9 EDEMA, UNSPECIFIED 07/26/2019 DOMENICA SMITH MD Ot S02.85XA FRACTURE OF ORBIT, UNSPECIFIED, INIT 07/26/2019 DOMENICA SMITH MD Ot W19.XXXA UNSPECIFIED FALL, INITIAL ENCOUNTER 07/26/2019 DOMENICA SMITH MD Ot Y92.009 [facility] PL[facility] IN [facility] NON-INSTITUT (PRIVATE 07/26/2019 DOMENICA SMITH MD, Ot Z79 .4 FPC (CURRENT) USE OF INSULIN 07/26/2019 DOMENICA SMITH MD, Ot Z86.711 PERSONAL HISTORY OF PULMONARY EMBOLISM 07/26/2019 DOMENICA SMITH MD, Ot Z87.891 PERSONAL HISTORY OF NICOTINE DEPENDENCE 07/26/2019 DOMENICA SMITH MD, Ot Z95 .5 PRESENCE OF CORONARY ANGIOPLASTY IMPLANT 07/26/2019 DOMENICA SMITH MD Ot Z97 .8 PRESENCE OF OTHER SPECIFIED DEVICES 07/26/2019 DOMENICA SMITH MD Ot Z99.81 DEPENDENCE ON SUPPLEMENTAL OXYGEN 08/08/2019 ENMA PETERS APRN Ot 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 08/08/2019 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 Ot J44.9 CHRONIC OBSTRUCTIVE PULMONARY DISEASE, U Procedures Code Description Performed By Per formed On 00.40 PROC EDURE ON SINGLE VESSEL 11/13/2011 00.45 INSE RTION OF ONE VASCULAR STENT 11/13/2011 00.66 PERC UTANEOUS TRANSLUMINAL CORONARY ANGIO 11/13/2011 36.07 INSR T OF DRUG-ELUTING CORON ARTERY STENT 11/13/2011 37.22 LEFT HEART CARDIAC CATH 11/13/2011 88.53 LT H EART ANGIOCARDIOGRAM 11/13/2011 88.56 MICHELLE ARMANDO ARTERIOGR-2 CATH 11/13/[address]/INFUSE PLATELET INHIBITOR 11/13/2011 81660 ROUT INE VENIPUNCTURE 01/14/2012 69795 A1C (IN-HOUSE) 01/14/2012 30627 CMP 01/15/2012 [id number] GF R CALC (RESULT ONLY) 01/15/2012 99390 ROUT INE VENIPUNCTURE 04/13/2012 88195 BMP 04/13/2012 [id number] GF R CALC (RESULT ONLY) 04/13/2012 77314 A1C (IN-HOUSE) 04/25/2012 54173 MICR O ALBUMIN-IN HOUSE 04/25/2012 84961 MICR OALBUMIN 04/25/2012 86065 HEPA TITIS PROFILE 05/24/2012 53588 ROUT INE VENIPUNCTURE 08/05/2012 16087 A1C (IN-HOUSE) 08/05/2012 89230 CMP 08/05/2012 08888 LIPI D PANEL 08/05/2012 [id number] GF R CALC (RESULT ONLY) 08/05/2012 46130 A1C (IN-HOUSE) 11/10/2012 93373 A1C (IN-HOUSE) 02/24/2013 55829 ROUT INE VENIPUNCTURE 05/30/2013 94215 EKG, TRACING (IN-HOUSE) 05/30/2013 93944 LIPI D PANEL 05/30/2013 68865 MAGNESIUM 05/30/2013 89010 CBC 05/30/2013 [id number] GF R CALC (RESULT ONLY) 05/30/2013 09116 CMP 05/30/2013 30980 TSH 05/30/2013 76352 NUCL EAR STRESS TESTING 07/28/2013 35349 ECHO 2D 07/28/2013 29417 MAMM OGRAM, SCREENING 10/23/2013 23610 XRAY CERVICAL SPINE, 2 OR 3 VIEWS 02/20/2014 02277 XRAY WRIST RIGHT COMP MIN 3 VIEWS 03/06/2014 69707 A1C (IN-HOUSE) 03/23/2014 20516 XRAY CERVICAL SPINE, 2 OR 3 VIEWS 04/02/2014 [id number] PE RFORMANCE OF CARDIAC PACING, CONTINUOU 07/21/2018 [id number] IN SERT OF MONITOR DEV INTO CHEST SUBCU/F 07/24/2018 [id number] EX CISION OF STOMACH, PYLORUS, ENDO, DIAG 07/25/2019 [id number] EX CISION OF CECUM, ENDO, DIAGN 07/25/2019 [id number] EX CISION OF ASCENDING COLON, ENDO, DIAGN 07/25/2019 [id number] EX CISION OF TRANSVERSE COLON, ENDO, DIAG 07/25/2019 Results Test Result Range Comp. Metabolic Panel [...] Staphylococcus aureus (MRSA) scr eening culture NEG [facility] [place] Influenza virus A and B antigen detectio n - 07/11/18 21:58 FLU RESULT NEGATIVE FOR INFLUENZA A AND B ANTIGENS BY IA [facility] [place] Complete blood count (CBC) with automate d [...] mg/dL 70-110 Automated blood complete blood count ( mogram) panel - 07/22/18 03:30 Blood leukocytes [...] by glucometer (mas s/volume) 192 mg/dL 70-110 [id number] - 03/09/19 12:50 Serum or plasma urea nitrogen measurement (mass/volume ) 20 mg/dL 7-18 Serum or plasma creatinine measurement (mass/volume) 1.26 mg/dL 0.60-1.30 Serum or plasma urea nitrogen/creatinine mass ratio 16 NRG Serum or plasma creatinine measurement w ith calculation of estimated glomerular filtration rate 43 [facility] [place] [id number] - 03/31/19 11:11 Serum or plasma urea nitrogen measurement (mass/volume ) 23 mg/dL 7-18 Serum or plasma creatinine measurement (mass/volume) 1.04 mg/dL 0.60-1.30 Serum or plasma urea nitrogen/creatinine mass ratio 22 NRG Serum or plasma creatinine measurement w ith calculation of estimated glomerular filtration rate 54 [facility] - 06/01/19 15:30 GLUCOSE 297 [...] 2.5 % NRG BASOPHILS 0.6 % NRG MAGNESIUM SERUM - 07/19/19 16:58 MAGNESIUM 2.1 mg/dL 1.5-2.5 D-DIMER - 07/19/19 16:58 D-DIMER, QUANTITATIVE 0.61 mcg/mL FEU <0 .50 BNP - 07/19/19 16:58 B TYPE NATRIURETIC PEPTIDE (BNP) 407 pg/mL <100 Complete blood count (CBC) with automate d [...] CBC with ordered manual differenti al panel 07/20/19 17:10 Blood leukocytes automated count (number/volume) [...] leukocytes 10 % 12-44 Blood monocytes/100 leukocytes 0 % NRG Automated blood eosinophils/100 leukocytes 1 % 0-10 Automated blood basophils/100 leukocytes 0 % 0-10 Blood neutrophils automated count (number/volume) 9.3 10*3 1.8-7.8 Blood lymphocytes automated count (number/volume) 1.2 10*3 1.0-4.0 Blood monocytes automated count (number/volume) 0. 6 10*3 0.0-1.0 Automated eosinophil count 0.0 10*3/uL 0 .0-0.3 Automated blood basophil count (count/volume) 0.0 10*3/uL 0.0-0.1 Manual blood segmented neutrophils/100 leukocytes 81 % NRG Blood band neutrophils/100 leukocytes 3 % NRG Manual blood lymphocytes/100 leukocytes 13 % NRG Manual eosinophils/100 leukocytes in nose 0 % NRG Manual blood basophils/100 leukocytes 0 % NRG Manual blood lymphocytes variant/100 leukocytes 3 % NRG Blood polychromasia detection by light microscopy SLIGHT NRG Blood anisocytosis detection by light microscopy S LIGHT NRG Manual blood nucleated erythrocytes/100 leukocytes ratio 2 NRG Blood hypochromia detection by light microscopy MA RKED NRG RED CELLS LEUKO REDUCED AS1 - 07/20/19 1 7:10 RED CELLS LEUKO REDUCED AS1 I SSUED 07/20/191941 NRG Blood type T Indirect antibody screen ak darleen - 07/20/19 17:10 WRISTBAND NUMBER [id number] NRG ABO+Rh group OP NRG Blood group antibody screen NEGATIVE NR G RED CELLS LEUKO REDUCED AS1 - 07/20/19 1 7:10 RED CELLS LEUKO REDUCED AS1 T RANSFUSED 07/20/191941 NRG Blood type T Indirect antibody screen pa darleen - 07/20/19 17:10 WRISTBAND NUMBER [id number] NRG ABO+Rh group OP NRG Blood group antibody screen NEGATIVE NR G Methicillin resistant Staphylococcus aur eus (MRSA) screening culture - 07/20/19 18:55 Methicillin resistant Staphylococcus aureus (MRSA) scr eening culture NEG NRG Complete urinalysis with reflex to cultu re - 07/20/19 19:26 Urine color determination YELLOW NRG Urine clarity determination CLEAR NR G Urine pH measurement by test strip 5.5 5-9 Specific gravity of urine by test strip 1.020 1.016-1.022 Urine protein assay by test strip, semi-quantitative TRACE NEGATIVE Urine glucose detection by automated test strip NE GATIVE NEGATIVE Erythrocytes detection in urine sediment by light micr oscopy NEGATIVE NEGATIVE Urine ketones detection by automated test strip NE GATIVE NEGATIVE Urine nitrite detection by test strip NEGATIVE NEGATIVE Urine total bilirubin detection by test strip NEGA TIVE NEGATIVE Urine urobilinogen measurement by automated test strip (mass/volume) 0.2 mg/dL < = 1.0 Urine leukocyte esterase detection by dipstick NEG ATIVE NEGATIVE Automated urine sediment erythrocyte cou nt by microscopy (number/high power field) NONE NRG Automated urine sediment leukocyte count by microscopy (number/high power field) NONE NRG Bacteria detection in urine sediment by light microsco py NEGATIVE NRG Squamous epithelial cells detection in u rine sediment by light microscopy 0-2 NRG Crystals detection in urine sediment by light microsco py PRESENT NRG Casts detection in urine sediment by light microscopy PRESENT NRG Mucus detection in urine sediment by light microscopy NEGATIVE NRG Complete urinalysis with reflex to culture NO NRG Amorphous sediment detection in urine sediment by ligh t microscopy LARGE LAUREN URATES NRG Hyaline casts detection in urine sediment by light gerardo roscopy 0-2 NRG Whole blood hemoglobin and hematocrit pa darleen - 07/20/19 19:35 Venous blood hemoglobin measurement (mass/volume) 5.0 g/dL 11.5-16.0 Blood hematocrit (volume fraction) 16 % 35-52 Capillary blood glucose measurement by g lucometer (mass/volume) - 07/20/19 20:17 Capillary blood glucose measurement by glucometer (mas s/volume) 397 mg/dL 70-110 Complete blood count (CBC) with automate d white blood cell (WBC) differential - 07/21/19 01:42 Blood leukocytes automated count (number/volume) 10.9 10*3/uL 4.3-11.0 Blood erythrocytes automated count (number/volume) 2.17 10*6/uL 4.35-5.85 Venous blood hemoglobin measurement (mass/volume) 5.9 g/dL 11.5-16.0 Blood hematocrit (volume fraction) 19 % 35-52 Automated erythrocyte mean corpuscular volume 88 [ foz_us] 80-99 Automated erythrocyte mean corpuscular h emoglobin (mass per erythrocyte) 27 pg 25-34 Automated erythrocyte mean corpuscular h emoglobin concentration measurement (mass/volume) 31 g/dL 32-36 Automated erythrocyte distribution width ratio 14. 9 % 10.0- 14.5 Automated blood platelet count (count/volume) 193 10*3/uL 130-400 Automated blood platelet mean volume measurement 10.8 [foz_us] 7.4-10.4 Automated blood neutrophils/100 leukocytes 77 % 42-75 Automated blood lymphocytes/100 leukocytes 16 % 12-44 Blood monocytes/100 leukocytes 6 % 0-12 Automated blood eosinophils/100 leukocytes 1 % 0-10 Automated blood basophils/100 leukocytes 0 % 0-10 Blood neutrophils automated count (number/volume) 8.4 10*3 1.8-7.8 Blood lymphocytes automated count (number/volume) 1.8 10*3 1.0-4.0 Blood monocytes automated count (number/volume) 0. 6 10*3 0.0-1.0 Automated eosinophil count 0.1 10*3/uL 0 .0-0.3 Automated blood basophil count (count/volume) 0.0 10*3/uL 0.0-0.1 Whole blood basic metabolic panel - 04/10 01:42 Serum or plasma sodium measurement (moles/volume) 140 mmol/L 135-145 Serum or plasma potassium measurement (moles/volume) 4.6 mmol/L 3.6-5.0 Serum or plasma chloride measurement (moles/volume) 108 mmol/L 98-107 Carbon dioxide 19 mmol/L 21-32 Serum or plasma anion gap determination (moles/volume) 13 mmol/L 5-14 Serum or plasma urea nitrogen measurement (mass/volume ) 45 mg/dL 7-18 Serum or plasma creatinine measurement (mass/volume) 1.77 mg/dL 0.60-1.30 Serum or plasma urea nitrogen/creatinine mass ratio 25 NRG Serum or plasma creatinine measurement w ith calculation of estimated glomerular filtration rate 29 NRG Serum or plasma glucose measurement (mass/volume) 197 mg/dL 70-105 Serum or plasma calcium measurement (mass/volume) 8.2 mg/dL 8.5-10.1 Serum or plasma phosphate measurement (m ass/volume) - 07/21/19 01:42 Serum or plasma phosphate measurement (mass/volume) 4.2 mg/dL 2.3-4.7 Magnesium - 07/21/19 01:42 Magnesium 2.2 mg/dL 1.6-2.4 PT panel in platelet poor plasma by coag ulation assay - 07/21/19 01:42 Prothrombin time (PT) in platelet poor plasma by coagu lation assay 15.7 s 12.2-14.7 INR in platelet poor plasma or blood by coagulation as say 1.2 0.8-1.4 Activated partial thromboplastin time (a PTT) in platelet poor plasma bycoagulation assay - 07/21/19 01:42 Activated partial thromboplastin time (a PTT) in platelet poor plasma bycoagulation assay 25 s 24-35 Capillary blood glucose measurement by g lucometer (mass/volume) - 07/21/19 06:23 Capillary blood glucose measurement by glucometer (mas s/volume) 231 mg/dL 70-110 Whole blood hemoglobin and hematocrit [facility] 07/21/19 08:20 Venous blood hemoglobin measurement (mass/volume) 6.7 g/dL 11.5-16.0 Blood hematocrit (volume fraction) 21 % 35-52 Capillary blood glucose measurement by g lucometer (mass/volume) - 07/21/19 11:40 Capillary blood glucose measurement by glucometer (mas s/volume) 322 mg/dL 70-110 Whole blood hemoglobin and hematocrit [facility] 07/21/19 15:05 Venous blood hemoglobin measurement (mass/volume) 6.6 g/dL 11.5-16.0 Blood hematocrit (volume fraction) 21 % 35-52 Capillary blood glucose measurement by g lucometer (mass/volume) - 07/21/19 15:50 Capillary blood glucose measurement by glucometer (mas s/volume) 312 mg/dL 70-110 Capillary blood glucose measurement by g lucometer (mass/volume) - 07/21/19 20:27 Capillary blood glucose measurement by glucometer (mas s/volume) 249 mg/dL 70-110 Whole blood hemoglobin and hematocrit [facility] 07/21/19 21:55 Venous blood hemoglobin measurement (mass/volume) 8.0 g/dL 11.5-16.0 Blood hematocrit (volume fraction) 25 % 35-52 Complete blood count (CBC) with automate d white blood cell (WBC) differential - 07/22/19 04:40 Blood leukocytes automated count (number/volume) 12.1 10*3/uL 4.3-11.0 Blood erythrocytes automated count (number/volume) 3.00 10*6/uL 4.35-5.85 Venous blood hemoglobin measurement (mass/volume) 8.0 g/dL 11.5-16.0 Blood hematocrit (volume fraction) 26 % 35-52 Automated erythrocyte mean corpuscular volume 86 [ foz_us] 80-99 Automated erythrocyte mean corpuscular h emoglobin (mass per erythrocyte) 27 pg 25-34 Automated erythrocyte mean corpuscular h emoglobin concentration measurement (mass/volume) 31 g/dL 32-36 Automated erythrocyte distribution width ratio 17. 0 % 10.0- 14.5 Automated blood platelet count (count/volume) 199 10*3/uL 130-400 Automated blood platelet mean volume measurement 10.6 [foz_us] 7.4-10.4 Automated blood neutrophils/100 leukocytes 73 % 42-75 Automated blood lymphocytes/100 leukocytes 17 % 12-44 Blood monocytes/100 leukocytes 7 % 0-12 Automated blood eosinophils/100 leukocytes 3 % 0-10 Automated blood basophils/100 leukocytes 0 % 0-10 Blood neutrophils automated count (number/volume) 8.9 10*3 1.8-7.8 Blood lymphocytes automated count (number/volume) 2.0 10*3 1.0-4.0 Blood monocytes automated count (number/volume) 0. 9 10*3 0.0-1.0 Automated eosinophil count 0.3 10*3/uL 0 .0-0.3 Automated blood basophil count (count/volume) 0.0 10*3/uL 0.0-0.1 Whole blood basic metabolic panel - 05/11 04:40 Serum or plasma sodium measurement (moles/volume) 137 mmol/L 135-145 Serum or plasma potassium measurement (moles/volume) 4.2 mmol/L 3.6-5.0 Serum or plasma chloride measurement (moles/volume) 106 mmol/L 98-107 Carbon dioxide 20 mmol/L 21-32 Serum or plasma anion gap determination (moles/volume) 11 mmol/L 5-14 Serum or plasma urea nitrogen measurement (mass/volume ) 31 mg/dL 7-18 Serum or plasma creatinine measurement (mass/volume) 1.44 mg/dL 0.60-1.30 Serum or plasma urea nitrogen/creatinine mass ratio 22 NRG Serum or plasma creatinine measurement w ith calculation of estimated glomerular filtration rate 37 NRG Serum or plasma glucose measurement (mass/volume) 235 mg/dL 70-105 Serum or plasma calcium measurement (mass/volume) 8.5 mg/dL 8.5-10.1 Serum or plasma phosphate measurement (m ass/volume) - 07/22/19 04:40 Serum or plasma phosphate measurement (mass/volume) 3.2 mg/dL 2.3-4.7 Magnesium - 07/22/19 04:40 Magnesium 2.0 mg/dL 1.6-2.4 IRON TEST - 07/22/19 04:40 Serum or plasma iron measurement (mass/volume) 72 % 33-167 Capillary blood glucose measurement by g lucometer (mass/volume) - 07/22/19 05:15 Capillary blood glucose measurement by glucometer (mas s/volume) 261 mg/dL 70-110 Capillary blood glucose measurement by g lucometer (mass/volume) - 07/22/19 11:07 Capillary blood glucose measurement by glucometer (mas s/volume) 379 mg/dL 70-110 Capillary blood glucose measurement by g lucometer (mass/volume) - 07/22/19 16:27 Capillary blood glucose measurement by glucometer (mas s/volume) 291 mg/dL 70-110 Capillary blood glucose measurement by g lucometer (mass/volume) - 07/22/19 21:14 Capillary blood glucose measurement by glucometer (mas s/volume) 365 mg/dL 70-110 Complete blood count (CBC) with automate d white blood cell (WBC) differential - 07/23/19 04:40 Blood leukocytes automated count (number/volume) 7.1 10*3/uL 4.3-11.0 Blood erythrocytes automated count (number/volume) 2.56 10*6/uL 4.35-5.85 Venous blood hemoglobin measurement (mass/volume) 7.0 g/dL 11.5-16.0 Blood hematocrit (volume fraction) 23 % 35-52 Automated erythrocyte mean corpuscular volume 88 [ foz_us] 80-99 Automated erythrocyte mean corpuscular h emoglobin (mass per erythrocyte) 27 pg 25-34 Automated erythrocyte mean corpuscular h emoglobin concentration measurement (mass/volume) 31 g/dL 32-36 Automated erythrocyte distribution width ratio 16. 6 % 10.0- 14.5 Automated blood platelet count (count/volume) 148 10*3/uL 130-400 Automated blood platelet mean volume measurement 10.4 [foz_us] 7.4-10.4 Automated blood neutrophils/100 leukocytes 72 % 42-75 Automated blood lymphocytes/100 leukocytes 18 % 12-44 Blood monocytes/100 leukocytes 7 % 0-12 Automated blood eosinophils/100 leukocytes 3 % 0-10 Automated blood basophils/100 leukocytes 0 % 0-10 Blood neutrophils automated count (number/volume) 5.1 10*3 1.8-7.8 Blood lymphocytes automated count (number/volume) 1.3 10*3 1.0-4.0 Blood monocytes automated count (number/volume) 0. 5 10*3 0.0-1.0 Automated eosinophil count 0.2 10*3/uL 0 .0-0.3 Automated blood basophil count (count/volume) 0.0 10*3/uL 0.0-0.1 Whole blood basic metabolic panel - 06/08 04:40 Serum or plasma sodium measurement (moles/volume) 137 mmol/L 135-145 Serum or plasma potassium measurement (moles/volume) 4.0 mmol/L 3.6-5.0 Serum or plasma chloride measurement (moles/volume) 106 mmol/L 98-107 Carbon dioxide 20 mmol/L 21-32 [...] NRG Serum or plasma glucose measurement (mass/volume) 190 mg/dL 70-105 Serum or plasma calcium measurement (mass/volume) 8.2 mg/dL 8.5-10.1 Serum or plasma phosphate measurement (m ass/volume) - 07/23/19 04:40 Serum or plasma phosphate measurement (mass/volume) 2.1 mg/dL 2.3-4.7 Magnesium - 07/23/19 04:40 Magnesium 2.0 mg/dL 1.6-2.4 Capillary blood glucose measurement by g lucometer (mass/volume) - 07/23/19 11:25 Capillary blood glucose measurement by glucometer (mas s/volume) 317 mg/dL 70-110 Capillary blood glucose measurement by g lucometer (mass/volume) - 07/23/19 15:56 Capillary blood glucose measurement by glucometer (mas s/volume) 288 mg/dL 70-110 OCCULT BLOOD STOOL - 07/23/19 18:30 Stool gastrointestinal hemoglobin detection POSITI VE NEGATIVE OCCULT BLOOD STOOL - 07/23/19 19:58 Stool gastrointestinal hemoglobin detection POSITI VE NEGATIVE Capillary blood glucose measurement by g lucometer (mass/volume) - 07/23/19 20:25 Capillary blood glucose measurement by glucometer (mas s/volume) 312 mg/dL 70-110 Complete blood count (CBC) with automate d white blood cell (WBC) differential - 07/24/19 04:24 Blood leukocytes automated count (number/volume) 6.6 10*3/uL 4.3-11.0 Blood erythrocytes automated count (number/volume) 2.79 10*6/uL 4.35-5.85 Venous blood hemoglobin measurement (mass/volume) 7.6 g/dL 11.5-16.0 Blood hematocrit (volume fraction) 25 % 35-52 Automated erythrocyte mean corpuscular volume 90 [ foz_us] 80-99 Automated erythrocyte mean corpuscular h emoglobin (mass per erythrocyte) 27 pg 25-34 Automated erythrocyte mean corpuscular h emoglobin concentration measurement (mass/volume) 30 g/dL 32-36 Automated erythrocyte distribution width ratio 18. 0 % 10.0- 14.5 Automated blood platelet count (count/volume) 161 10*3/uL 130-400 Automated blood platelet mean volume measurement 10.6 [foz_us] 7.4-10.4 Automated blood neutrophils/100 leukocytes 74 % 42-75 Automated blood lymphocytes/100 leukocytes 17 % 12-44 Blood monocytes/100 leukocytes 6 % 0-12 Automated blood eosinophils/100 leukocytes 3 % 0-10 Automated blood basophils/100 leukocytes 0 % 0-10 Blood neutrophils automated count (number/volume) 4.9 10*3 1.8-7.8 Blood lymphocytes automated count (number/volume) 1.1 10*3 1.0-4.0 Blood monocytes automated count (number/volume) 0. 4 10*3 0.0-1.0 Automated eosinophil count 0.2 10*3/uL 0 .0-0.3 Automated blood basophil count (count/volume) 0.0 10*3/uL 0.0-0.1 Whole blood basic metabolic panel - 07/09 04:24 Serum or plasma sodium measurement (moles/volume) 138 mmol/L 135-145 Serum or plasma potassium measurement (moles/volume) 4.1 mmol/L 3.6-5.0 Serum or plasma chloride measurement (moles/volume) 107 mmol/L 98-107 Carbon dioxide 21 mmol/L 21-32 Serum or plasma anion gap determination (moles/volume) 10 mmol/L 5-14 Serum or plasma urea nitrogen measurement (mass/volume ) 17 mg/dL 7-18 Serum or plasma creatinine measurement (mass/volume) 1.09 mg/dL 0.60-1.30 Serum or plasma urea nitrogen/creatinine mass ratio 16 NRG Serum or plasma creatinine measurement w ith calculation of estimated glomerular filtration rate 51 NRG Serum or plasma glucose measurement (mass/volume) 213 mg/dL 70-105 Serum or plasma calcium measurement (mass/volume) 8.3 mg/dL 8.5-10.1 Serum or plasma phosphate measurement (m ass/volume) - 07/24/19 04:24 Serum or plasma phosphate measurement (mass/volume) 2.4 mg/dL 2.3-4.7 Magnesium - 07/24/19 04:24 Magnesium 2.1 mg/dL 1.6-2.4 Serum or plasma lithium measurement (mol es/volume) - 07/24/19 04:24 BNP PT 189.0 pg/mL <100.0 Capillary blood glucose measurement by g lucometer (mass/volume) - 07/24/19 11:00 Capillary blood glucose measurement by glucometer (mas s/volume) 300 mg/dL 70-110 Methicillin resistant Staphylococcus aur eus (MRSA) screening culture - 07/24/19 11:28 Methicillin resistant Staphylococcus aureus (MRSA) scr eening culture NEG NRG OCCULT BLOOD STOOL - 07/24/19 15:17 Stool gastrointestinal hemoglobin detection POSITI VE NEGATIVE Capillary blood glucose measurement by g lucometer (mass/volume) - 07/24/19 15:50 Capillary blood glucose measurement by glucometer (mas s/volume) 286 mg/dL 70-110 Capillary blood glucose measurement by g lucometer (mass/volume) - 07/24/19 21:03 Capillary blood glucose measurement by glucometer (mas s/volume) 243 mg/dL 70-110 Complete blood count (CBC) with automate d white blood cell (WBC) differential - 07/25/19 04:15 Blood leukocytes automated count (number/volume) 5.2 10*3/uL 4.3-11.0 Blood erythrocytes automated count (number/volume) 2.62 10*6/uL 4.35-5.85 Venous blood hemoglobin measurement (mass/volume) 7.1 g/dL 11.5-16.0 Blood hematocrit (volume fraction) 24 % 35-52 Automated erythrocyte mean corpuscular volume 90 [ foz_us] 80-99 Automated erythrocyte mean corpuscular h emoglobin (mass per erythrocyte) 27 pg 25-34 Automated erythrocyte mean corpuscular h emoglobin concentration measurement (mass/volume) 30 g/dL 32-36 Automated erythrocyte distribution width ratio 17. 9 % 10.0- 14.5 Automated blood platelet count (count/volume) 149 10*3/uL 130-400 Automated blood platelet mean volume measurement 10.6 [foz_us] 7.4-10.4 Automated blood neutrophils/100 leukocytes 72 % 42-75 Automated blood lymphocytes/100 leukocytes 17 % 12-44 Blood monocytes/100 leukocytes 7 % 0-12 Automated blood eosinophils/100 leukocytes 4 % 0-10 Automated blood basophils/100 leukocytes 0 % 0-10 Blood neutrophils automated count (number/volume) 3.8 10*3 1.8-7.8 Blood lymphocytes automated count (number/volume) 0.9 10*3 1.0-4.0 Blood monocytes automated count (number/volume) 0. 4 10*3 0.0-1.0 Automated eosinophil count 0.2 10*3/uL 0 .0-0.3 Automated blood basophil count (count/volume) 0.0 10*3/uL 0.0-0.1 Whole blood basic metabolic panel - 05/0 08/08 04:15 Serum or plasma sodium measurement (moles/volume) 140 mmol/L 135-145 Serum or plasma potassium measurement (moles/volume) 3.6 mmol/L 3.6-5.0 Serum or plasma chloride measurement (moles/volume) 104 mmol/L 98-107 Carbon dioxide 26 mmol/L 21-32 Serum or plasma anion gap determination (moles/volume) 10 mmol/L 5-14 Serum or plasma urea nitrogen measurement (mass/volume ) 10 mg/dL 7-18 Serum or plasma creatinine measurement (mass/volume) 0.80 mg/dL 0.60-1.30 Serum or plasma urea nitrogen/creatinine mass ratio 13 NRG Serum or plasma creatinine measurement w ith calculation of estimated glomerular filtration rate > NRG Serum or plasma glucose measurement (mass/volume) 143 mg/dL 70-105 Serum or plasma calcium measurement (mass/volume) 8.0 mg/dL 8.5-10.1 Serum or plasma phosphate measurement (m ass/volume) - 07/25/19 04:15 Serum or plasma phosphate measurement (mass/volume) 2.7 mg/dL 2.3-4.7 Magnesium - 07/25/19 04:15 Magnesium 1.8 mg/dL 1.6-2.4 Capillary blood glucose measurement by g lucometer (mass/volume) - 07/25/19 05:26 Capillary blood glucose measurement by glucometer (mas s/volume) 161 mg/dL 70-110 Capillary blood glucose measurement by g lucometer (mass/volume) - 07/25/19 10:58 Capillary blood glucose measurement by glucometer (mas s/volume) 181 mg/dL 70-110 Capillary blood glucose measurement by g lucometer (mass/volume) - 07/25/19 15:31 Capillary blood glucose measurement by glucometer (mas s/volume) 208 mg/dL 70-110 Capillary blood glucose measurement by g lucometer (mass/volume) - 07/25/19 20:40 Capillary blood glucose measurement by glucometer (mas s/volume) 299 mg/dL 70-110 Complete blood count (CBC) with automate d white blood cell (WBC) differential - 07/26/19 04:06 Blood leukocytes automated count (number/volume) 6.1 10*3/uL 4.3-11.0 Blood erythrocytes automated count (number/volume) 2.86 10*6/uL 4.35-5.85 Venous blood hemoglobin measurement (mass/volume) 7.8 g/dL 11.5-16.0 Blood hematocrit (volume fraction) 26 % 35-52 Automated erythrocyte mean corpuscular volume 91 [ foz_us] 80-99 Automated erythrocyte mean corpuscular h emoglobin (mass per erythrocyte) 27 pg 25-34 Automated erythrocyte mean corpuscular h emoglobin concentration measurement (mass/volume) 30 g/dL 32-36 Automated erythrocyte distribution width ratio 18. 2 % 10.0- 14.5 Automated blood platelet count (count/volume) 146 10*3/uL 130-400 Automated blood platelet mean volume measurement 10.8 [foz_us] 7.4-10.4 Automated blood neutrophils/100 leukocytes 75 % 42-75 Automated blood lymphocytes/100 leukocytes 16 % 12-44 Blood monocytes/100 leukocytes 6 % 0-12 Automated blood eosinophils/100 leukocytes 3 % 0-10 Automated blood basophils/100 leukocytes 0 % 0-10 Blood neutrophils automated count (number/volume) 4.6 10*3 1.8-7.8 Blood lymphocytes automated count (number/volume) 1.0 10*3 1.0-4.0 Blood monocytes automated count (number/volume) 0. 4 10*3 0.0-1.0 Automated eosinophil count 0.2 10*3/uL 0 .0-0.3 Automated blood basophil count (count/volume) 0.0 10*3/uL 0.0-0.1 Whole blood basic metabolic panel - 09/08 04:06 Serum or plasma sodium measurement (moles/volume) 141 mmol/L 135-145 Serum or plasma potassium measurement (moles/volume) 4.1 mmol/L 3.6-5.0 Serum or plasma chloride measurement (moles/volume) 106 mmol/L 98-107 Carbon dioxide 23 mmol/L 21-32 Serum or plasma anion gap determination (moles/volume) 12 mmol/L 5-14 Serum or plasma urea nitrogen measurement (mass/volume ) 9 mg/dL 7-18 Serum or plasma creatinine measurement (mass/volume) 0.96 mg/dL 0.60-1.30 Serum or plasma urea nitrogen/creatinine mass ratio 9 NRG Serum or plasma creatinine measurement w ith calculation of estimated glomerular filtration rate 59 NRG Serum or plasma glucose measurement (mass/volume) 229 mg/dL 70-105 Serum or plasma calcium measurement (mass/volume) 8.7 mg/dL 8.5-10.1 Serum or plasma phosphate measurement (m ass/volume) - 07/26/19 04:06 Serum or plasma phosphate measurement (mass/volume) 2.4 mg/dL 2.3-4.7 Magnesium - 07/26/19 04:06 Magnesium 1.9 mg/dL 1.6-2.4 Capillary blood glucose measurement by g lucometer (mass/volume) - 07/26/19 11:22 Capillary blood glucose measurement by glucometer (mas s/volume) 278 mg/dL 70-110 Capillary blood glucose measurement by g lucometer (mass/volume) - 07/26/19 15:58 Capillary blood glucose measurement by glucometer (mas s/volume) 297 mg/dL 70-110 Comprehensive Metabolic Panel - 07/27/19 04:50 Albumin 3.2 g/dL 3.6-5.1 ALP 104 U/L 35-130 ALT 21 U/L 6-45 Anion Gap 9 6-14 AST 28 U/L 2-40 BUN 7 mg/dL 5-25 Calcium 8.5 mg/dL 8.3-10.4 Chloride 105 mmol/L 95-114 CO2 29 mEq/L 22-33 Creat 1.12 mg/dL 0.50-1.50 eGFR 49 mL/min/1.73m2 >59 Globulin 2.7 g/dL 2.3-3.5 Glucose 270 mg/dL 70-110 Osmo 294 280-295 Potassium 3.9 mmol/L 3.5-5.3 Sodium 139 mmol/L 134-148 TBil 0.3 mg/dL 0.2-1.2 TP 5.9 g/dL 6.0-8.3 Comprehensive Metabolic Panel - 07/28/19 05:15 Albumin 3.1 g/dL 3.6-5.1 ALP 90 U/L 35-130 ALT 18 U/L 6-45 Anion Gap 10 6-14 AST 25 U/L 2-40 BUN 13 mg/dL 5-25 Calcium 8.6 mg/dL 8.3-10.4 Chloride 104 mmol/L 95-114 CO2 31 mEq/L 22-33 Creat 1.03 mg/dL 0.50-1.50 eGFR 54 mL/min/1.73m2 >59 Globulin 2.5 g/dL 2.3-3.5 Glucose 141 mg/dL 70-110 Osmo 293 280-295 Potassium 4.1 mmol/L 3.5-5.3 Sodium 141 mmol/L 134-148 TBil 0.3 mg/dL 0.2-1.2 TP 5.6 g/dL 6.0-8.3 Comprehensive Metabolic Panel - 07/29/19 05:00 Albumin 3.2 g/dL 3.6-5.1 ALP 92 U/L 35-130 ALT 18 U/L 6-45 Anion Gap 11 6-14 AST 33 U/L 2-40 BUN 11 mg/dL 5-25 Calcium 8.7 mg/dL 8.3-10.4 Chloride 104 mmol/L 95-114 CO2 31 mEq/L 22-33 Creat 0.93 mg/dL 0.50-1.50 eGFR 61 mL/min/1.73m2 >59 Globulin 2.8 g/dL 2.3-3.5 Glucose 139 mg/dL 70-110 Osmo 295 280-295 Potassium 3.8 mmol/L 3.5-5.3 Sodium 142 mmol/L 134-148 TBil 0.3 mg/dL 0.2-1.2 TP 6.0 g/dL 6.0-8.3 Automated blood complete blood count (he mogram) panel - 08/21/19 16:45 Blood leukocytes automated count (number/volume) 5.5 10*3/uL 4.3-11.0 Blood erythrocytes automated count (number/volume) 3.78 10*6/uL 4.35-5.85 Venous blood hemoglobin measurement (mass/volume) 10.6 g/dL 11.5-16.0 Blood hematocrit (volume fraction) 34 % 35-52 Automated erythrocyte mean corpuscular volume 91 [ foz_us] 80-99 Automated erythrocyte mean corpuscular h emoglobin (mass per erythrocyte) 28 pg 25-34 Automated erythrocyte mean corpuscular h emoglobin concentration measurement (mass/volume) 31 g/dL 32-36 Automated erythrocyte distribution width ratio 15. 2 % 10.0- 14.5 Automated blood platelet count (count/volume) 136 10*3/uL 130-400 Automated blood platelet mean volume measurement 11.1 [foz_us] 7.4-10.4 Comprehensive metabolic panel - 08/21/19 16:45 Serum or plasma sodium measurement (moles/volume) 141 mmol/L 135-145 Serum or plasma potassium measurement (moles/volume) 4.8 mmol/L 3.6-5.0 Serum or plasma chloride measurement (moles/volume) 107 mmol/L 98-107 Carbon dioxide 22 mmol/L 21-32 Serum or plasma anion gap determination (moles/volume) 12 mmol/L 5-14 Serum or plasma urea nitrogen measurement (mass/volume ) 26 mg/dL 7-18 Serum or plasma creatinine measurement (mass/volume) 1.55 mg/dL 0.60-1.30 Serum or plasma urea nitrogen/creatinine mass ratio 17 NRG Serum or plasma creatinine measurement w ith calculation of estimated glomerular filtration rate 34 NRG Serum or plasma glucose measurement (mass/volume) 247 mg/dL 70-105 Serum or plasma calcium measurement (mass/volume) 9.3 mg/dL 8.5-10.1 Serum or plasma total bilirubin measurement (mass/volu me) 0.3 mg/dL 0.1-1.0 Serum or plasma alkaline phosphatase shereen surement (enzymatic activity/volume) 85 U/L 40-136 Serum or plasma aspartate aminotransfera se measurement (enzymatic activity/volume) 45 U/L 5-34 Serum or plasma alanine aminotransferase measurement (enzymatic activity/volume) 33 U/L 0-55 Serum or plasma protein measurement (mass/volume) 7.5 g/dL 6.4-8.2 Serum or plasma albumin measurement (mass/volume) 3.9 g/dL 3.2-4.5 CALCIUM CORRECTED 9.4 mg/dL 8.5-10.1 PT panel in platelet poor plasma by coag ulation assay - 08/21/19 16:45 Prothrombin time (PT) in platelet poor plasma by coagu lation assay 19.6 s 12.2-14.7 INR in platelet poor plasma or blood by coagulation as say 1.6 0.8-1.4 Activated partial thromboplastin time (a PTT) in platelet poor plasma bycoagulation assay - 08/21/19 16:45 Activated partial thromboplastin time (a PTT) in platelet poor plasma bycoagulation assay 36 s 24-35 Magnesium - 08/21/19 16:45 Magnesium 1.7 mg/dL 1.6-2.4 THYROID STIMULATING HORMONE - 08/21/19 1 6:45 THYROID STIMULATING HORMONE 2.09 u[iU]/mL 0.35-4.94 Encounters ACCT No. Visit Date/Time Discharge Status Pt. Type Provider Facility Loc./Unit Complaint [id number] 07/10/2016 11:07:00 Document Registration [id number] 06/01/2014 14:09:00 06/01/2014 23:59: 59 CLS Outpatient GEE AMADO MD [id number] 04/30/2014 13:56:00 04/30/2014 23:59: 59 CLS Outpatient GEE AMADO MD [id number] 03/29/2014 12:12:00 03/29/2014 23:59: 59 CLS Outpatient GEE AMADO MD [id number] 03/23/2014 13:24:00 03/23/2014 23:59: 59 CLS Outpatient GEE AMADO MD [id number] 03/06/2014 13:45:00 03/06/2014 23:59: 59 CLS Outpatient LALITO TERRAZAS APRN [id number] 02/20/2014 14:47:00 02/20/2014 23:59: 59 CLS Outpatient GEE AMADO MD [id number] 02/06/2014 16:34:00 02/06/2014 23:59: 59 CLS Outpatient GEE AMADO MD [id number] 12/14/2013 00:00:00 12/14/2013 23:59: 59 CLS Outpatient WHITE DDSIBAN [id number] 10/23/2013 09:58:00 10/23/2013 23:59: 59 CLS Outpatient VAN LAWRENCE APRN [id number] 09/08/2013 09:39:00 09/08/2013 23:59: 59 CLS Outpatient WADE DOJUSTICE [id number] 07/28/2013 08:44:00 07/28/2013 23:59: 59 CLS Outpatient WADE DOJUSTICE [id number] 06/06/2013 15:27:00 06/06/2013 23:59: 59 CLS Outpatient WHITE DDSJOELLE [id number] 05/30/2013 09:38:00 05/30/2013 23:59: 59 CLS Outpatient GEE AMADO MD [id number] 04/25/2013 08:38:00 04/25/2013 23:59: 59 CLS Outpatient WHITE DDSIBAN [id number] 03/05/2013 00:00:00 03/05/2013 23:59: 59 CLS Outpatient WADE DOJUSTICE [id number] 02/24/2013 07:56:00 02/24/2013 23:59: 59 CLS Outpatient GEE AMADO MD [id number] 01/30/2013 08:00:00 01/30/2013 23:59: 59 CLS Outpatient WHITE DDSIBAN [id number] 12/19/2012 00:00:00 12/19/2012 23:59: 59 CLS Outpatient WHITE DDSIBAN [id number] 05/24/2012 09:24:00 05/24/2012 23:59: 59 CLS Outpatient GEE AMADO MD [id number] 04/25/2012 09:57:00 04/25/2012 23:59: 59 CLS Outpatient GEE AMADO MD [id number] 04/13/2012 09:38:00 04/13/2012 23:59: 59 [place] [id number] 01/14/2012 14:34:00 01/14/2012 23:59:5 9 CLS Outpatient GEE AMADO MD [id number] 11/23/2012 10:51:00 Document Registration [id number] 08/05/2012 09:03:00 Document Registration [id number] 08/07/2019 15:03:00 23:59:59 CLS Outpatient LICHA MARAVILLA, GEETA [facility] ONC [id number] 07/20/2019 17:37:00 17:00:00 DIS Outpatient SARAH MARAVILLA, DOMENICA Beavers [facility] 4TH SEVERE ANEMIA [id number] 07/19/2019 17:18:00 23:59:59 CLS Outpatient 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 [facility] RAD FS POSS PHENOMENA [id number] 04/17/2019 08:13:00 23:59:59 CLS Outpatient LETTY WILLAMS APRN [facility] RT DYSPNEA,ALLERGI C RHINITIS,COUGH,COPD [id number] 03/31/2019 11:00:00 23:59:59 CLS Outpatient ILANA SANTAMARIA MD [facility] RAD ATHEROSCLEROSIS [id number] 03/09/2019 12:45:00 23:59:59 CLS Outpatient ILANA SANTAMARIA MD [facility] LAB 440.70 [id number] 03/02/2019 12:20:00 23:59:59 CLS Outpatient ILANA SANTAMARIA MD [facility] RAD CLAUDICATION [id number] 02/17/2019 14:50:00 14:00:00 DIS Inpatient LOPEZ DO, ZACK V [facility] IRF ENCEPHALOPATHY [id number] 02/05/2019 08:41:00 10:25:00 DIS Emergency ALEXA SOLIZ MD [facility] ER FS PT FOUND UNRESPONSIVE [id number] 01/13/2019 11:15:00 13:35:00 DIS Inpatient LOPEZ DO, ZACK V [facility] IRF DEBILITY [id number] 01/10/2019 08:09:00 11:15:00 DIS Inpatient LOPEZ DO, ZACK V [facility] 4TH SOA, HEART FAILURE, DM2 , OBESITY, CKD [id number] 07/21/2018 19:26:00 14:57:00 DIS Inpatient Jaime GARSIA MD [facility] ICU AFIB,BRADYCARDIA,CARDIO GENIC SHOCK [id number] 07/11/2018 21:48:00 02:40:00 DIS Emergency MICHAEL DE LA GARZA MD [facility] ER FS FEVER,SOB [id number] 05/31/2018 00:10:00 23:59:59 CLS Preadmit BOOM IMLLER MD [facility] LAB ENCOUNTER FOR MONITORIN G COUMADIN THERAPY [id number] 03/29/2018 12:33:00 00:01:00 DIS Outpatient BOOM MILLER MD [facility] LAB ENCOUNTER FOR MONITORIN G COUMADIN THERAPY [id number] 03/09/2018 08:29:00 17:05:00 DIS Outpatient BOOM MILLER MD [facility] CATH CP,CAD,PAF,HTN [id number] 02/05/2018 16:36:00 23:59:59 CLS Outpatient BOOM MILLER MD [facility] LAB PT/INR LAB [id number] 09/01/2017 11:42:00 23:59:59 CLS Preadmit GEE AMADO MD [facility] RAD MEDICARE ANNUAL WELLNES S VISIT,INITIAL [id number] 06/28/2017 00:42:00 018 23:59:59 CLS Preadmit BOOM MILLER MD [facility] LAB I48.91 [id number] 06/15/2017 10:55:00 018 00:01:00 DIS Outpatient BOOM MILLER MD [facility] LAB I48.91 [id number] 04/03/2017 19:54:00 018 07:02:00 DIS Outpatient BOOM MILLER MD [facility] SLEEP G47.33 OBSTRUCTIVE SLEE P APNEA [id number] 03/24/2017 08:12:00 018 23:59:59 CLS Outpatient BOOM MILLER MD [facility] CATH ATRIAL FIBRILLATION [id number] 03/05/2017 08:13:00 017 13:30:00 DIS Outpatient BOOM MILLER MD [facility] CATH ABN STRESS TEST, CAD, H TN [id number] 03/01/2017 07:44:00 017 23:59:59 CLS Outpatient BOOM MILLER MD [facility] CARD AORTIC VALVE SCLEROSIS [id number] 02/22/2017 11:38:00 017 23:59:59 CLS Outpatient BOOM MILLER MD [facility] CARD I35.8 AORTIC VALVE SCLE ROSIS [id number] 09/11/2015 07:51:00 016 23:59:59 CLS Outpatient ILANA SANTAMARIA MD [facility] RAD STENOSIS [id number] 08/09/2015 17:28:00 016 23:59:59 CLS Outpatient XANDER ESQUIVEL MD [facility] RAD CERVICAL RADICULOPATHY [id number] 03/13/2015 07:10:00 015 14:20:00 DIS Outpatient BOOM MILLER MD [facility] CATH HTN,HLP,CAD,CP [id number] 02/27/2015 11:59:00 015 23:59:59 CLS Outpatient BOOM MILLER MD [facility] CARD HTN,HLD,CPS [id number] 10/31/2013 10:27:00 014 23:59:59 CLS Outpatient VAN LAWRENCE APRN [facility] RAD SCREENING [id number] 08/28/2013 08:36:00 014 17:20:00 DIS Outpatient BOOM MILLER MD [facility] CATH CAD,CP,HLP,HTN,DM [id number] 08/18/2013 12:27:00 014 23:59:59 CLS Outpatient JEFRY FLOREZ, HELENE Topete [facility] CARD CAD,CP,HLP, HTN,DM [id number] 10/26/2012 12:11:00 013 14:26:00 DIS Emergency CURLY MARAVILLA, RK Phillip [facility] ER ELEVATED BP [id number] 2019 15:52:[address] Inpatient BOOM MILLER MD [facility] ICU AFIB/RVR [id number] 08/07/2015 09:49:00 Document Registration [id number] 11/13/2011 14:00:00 Document Registration [id number] 06/01/2019 15:00:00 06/01/2019 23:59: 59 CLS Outpatient INGRIS MARAVILLA, [facility] [place] [id number] 07/19/2019 15:40:00 Document Registration [id number] 06/01/2019 15:00:00 Document Registration [id number] 08/29/2018 15:45:00 Document Registration [id number] 08/18/2018 09:00:00 Document Registration [id number] 01/17/2018 13:40:00 Document Registration [id number] 07/26/2019 15:00:00 07/29/2019 13:52 :00 DIS Inpatient Zack Lopez enter [facility] [id number] 07/26/2019 14:44:25 Document Registration
[2019-08-22] VITALS (25 sets, daily range): BP systolic 108–168; BP diastolic 57–95
[2019-08-22] MEDS: dilTIAZem DRIP PRE-MIX 125 ML IV SCH (02:11)
[2019-08-22 04:23] LABS: BASOPHILS % (AUTO) 0 % (0-10); EOSINOPHILS # (AUTO) 0.3 10^3/uL (0.0-0.3); EOSINOPHILS % (AUTO) 6 % (0-10); HEMATOCRIT 37 % (35-52); HEMOGLOBIN 11.2 G/DL (11.5-16.0); LYMPHOCYTES # (AUTO) 1.5 X 10^3 (1.0-4.0); LYMPHOCYTES % (AUTO) 26 % (12-44); MEAN CORPUSCULAR HEMOGLOBIN 28 PG (25-34); MEAN CORPUSCULAR HGB CONC 31 G/DL (32-36); MEAN CORPUSCULAR VOLUME 90 FL (80-99); MEAN PLATELET VOLUME 10.5 FL (7.4-10.4); MONOCYTES # (AUTO) 0.3 X 10^3 (0.0-1.0); MONOCYTES % (AUTO) 6 % (0-12); NEUTROPHILS # (AUTO) 3.5 X 10^3 (1.8-7.8); NEUTROPHILS % (AUTO) 62 % (42-75); PLATELET COUNT 112 10^3/uL (130-400); WHITE BLOOD COUNT 5.7 10^3/uL (4.3-11.0)
[2019-08-22 04:36] LABS: POTASSIUM 4.3 MMOL/L (3.6-5.0)
[2019-08-22 04:38] LABS: CALCIUM 9.1 MG/DL (8.5-10.1)
[2019-08-22 04:42] LABS: CREATININE SERUM 1.46 MG/DL (0.60-1.30); PHOSPHORUS 3.8 MG/DL (2.3-4.7)
[2019-08-22 04:44] LABS: MAGNESIUM 1.8 MG/DL (1.6-2.4)
[2019-08-22] MEDS: POTASSIUM CL 10MEQ/50ML IVPB 50 ML IV SCH (04:54)
[2019-08-22] MEDS: MAGNESIUM 1 GM/100 ML IVPB 100 ML IV SCH (04:55)
[2019-08-22] MEDS: KCL 20 MEQ TAB (K-DUR) PO SCH (04:55)
--- NOTE | 2019-08-22 05:32 | Pulmonary Consultation ---
History of Present Illness History of Present Illness Date Seen by Provider: Aug 22, 2019 Time Seen by Provider: 05:27 Date of Admission History of Present Illness 64yo with hx of oxygen dependent COPD with JORGE LUIS uses CPAP at night directly admitted from Dr. West's office secondary to Afib RVR. She was admitted to ICU with Cardizem gtt. HEMA with cardioversion planned for today. Allergies and Home Medications Allergies Coded Allergies: amiodarone (Verified Allergy, Intermediate, Shortness of Breath, 08/22/19) morphine (Verified Adverse Reaction, Severe, hallucination, 07/12/18) Home Medications Albuterol Sulfate 18 Gm Hfa.aer.ad, 2 PUFF PO Q6H PRN for SHORTNESS OF BREATH, (Reported) Amiodarone HCl 200 Mg Tablet, 200 MG PO UD Take 2 tablets twice daily for one week then Take one tablet twice daily Prescribed by: BOOM WEST on 08/24/19902 Atorvastatin Calcium 40 Mg Tablet, 40 MG PO HS, (Reported) Calcium Citrate/Vitamin D2 1 Each Tablet, 1 EACH PO DAILY, (Reported) Cefuroxime Axetil 500 Mg Tablet, 500 MG PO BID Prescribed by: BOOM WEST on 08/24/19 09 Cinnamon Bark 500 Mg Capsule, 500 MG PO BID, (Reported) Cyclobenzaprine HCl 10 Mg Tablet, 20 MG PO BID PRN for MUSCLE SPASMS, (Reported) Diltiazem HCl 240 Mg Cap.er.24h, 240 MG PO DAILY Prescribed by: BOOM WEST on 08/24/19 09 Doxazosin Mesylate 1 Mg Tablet, 1 MG PO HS, (Reported) Dulaglutide 0.75 Mg/0.5 Ml Pen.injctr, 0.75 MG SC Mandujano, (Reported) Fenofibrate,Micronized 134 Mg Capsule, 134 MG PO HS, (Reported) Fluticasone/Salmeterol 1 Each Blst.w.dev, 2 PUFF PO BID PRN for SHORTNESS OF BREATH, (Reported) Gabapentin 600 Mg Tablet, 600 MG PO BID, (Reported) Hydrocodone Bit/Acetaminophen 1 Each Tablet, 1 EA PO TID PRN for PAIN-MODERATE (5-7), (Reported) Insulin Aspart 100 Unit/1 Ml Susp, UNIT SQ TIDAC, (Reported) USES PER SLIDING SCALE Insulin Detemir 100 Unit/1 Ml Insuln.pen, 40 UNIT SQ HS, (Reported) Ipratropium/Albuterol Sulfate 3 Ml Ampul.neb, 3 ML IH BID PRN for SHORTNESS OF BREATH, (Reported) Isosorbide Mononitrate 60 Mg Tab, 60 MG PO DAILY, (Reported) Magnesium Oxide 400 Mg Tablet, 400 MG PO HS, (Reported) Metoprolol Succinate 25 Mg Tab.er.24h, 25 MG PO DAILY, (Reported) Multivitamin-Min/Iron/FA/Vit K 1 Each Tablet, 1 TAB PO DAILY, (Reported) [place]-3/Dha/Epa/Fish Oil 1 Each Capsule, 1,000 MG PO DAILY, (Reported) Pantoprazole Sodium 40 Mg Tablet.dr, 40 MG PO BID WITH MEALS, (Reported) Potassium Gluconate 90 Mg Tablet, 90 MG PO DAILY, (Reported) Primidone 50 Mg Tablet, 50 MG PO HS, (Reported) Rivaroxaban 20 Mg Tablet, 20 MG PO HS, (Reported) Sennosides/Docusate Sodium 1 Each Tablet, 2 TAB PO HS, (Reported) Spironolactone 25 Mg Tablet, 25 MG PO DAILY, (Reported) Sucralfate 1 Gm Tablet, 1 GM PO QIDACHS, (Reported) Torsemide 10 Mg Tablet, 10 MG PO DAILY, (Reported) Past Lazkrqs-Ylcphi-Pqecds Hx Patient Social History Alcohol Use: Denies Use Recreational Drug Use: No Type Used: Cigarettes Former Smoker, Quit: Mar 24, 1997 2nd Hand Smoke Exposure: No Recent Foreign Travel: No Contact w/Someone Who Travel: No Recent Infectious Disease Expo: No Recent Hopitalizations: Yes Immunizations Up To Date Tetanus Booster (TDap): Unknown PED Vaccines UTD: Yes Date of Pneumonia Vaccine: Mar 05, 2013 Date of Influenza Vaccine: Jan 12, 2019 Seasonal Allergies Seasonal Allergies: No Past Medical History Surgeries: Yes (neck and back surgeries) Coronary Stent, Gallbladder, Hysterectomy, Orthopedic Respiratory: Yes Pneumonia, Pulmonary Embolism, Sleep Apnea, COPD Currently Using CPAP: Yes Currently Using BIPAP: No Cardiac: Yes (stents-has loop recorder placement) Atrial Fibrillation, Coronary Artery Disease, High Cholesterol, Hypertension Neurological: No : No Reproductive Disorders: No Genitourinary: No Bladder Infection, Renal Failure Gastrointestinal: Yes Gastroesophageal Reflux, Chronic Constipation, Pancreatitis Musculoskeletal: Yes (CHRONIC HIP PAIN BILATERALLY, FX NECK) Arthritis Endocrine: Yes Diabetes, Insulin dep, Diabetes, Non-Insulin dep Are Your Blood Sugars Over 250: Yes (SOMETIMES, NOT ALWAYS) HEENT: No Loss of Vision: Denies Hearing Impairment: Denies Cancer: No Psychosocial: Yes Anxiety Integumentary: No Blood Disorders: No Family Medical History Patient reports no known family medical history. Diabetes, Hypertension Review of Systems Time Seen by Provider: 05:32 Sepsis Event Evaluation Height, Weight, BMI Height: 5'4.00" Weight: 219lbs. 1.0oz. 99.395577be; 36.46 BMI Method:Stated Exam Exam Vital Signs Date Time Temp Pulse Resp B/P (MAP) Pulse Ox O2 Delivery O2 Flow Rate FiO2 08/22/19 04:25 36.4 08/22/19 04:00 80 25 120/74 (89) 97 Nasal Cannula 2.00 08/22/19 04:00 Nasal Cannula 2.00 08/22/19 03:00 75 16 118/68 (85) 97 Nasal Cannula 2.00 08/22/19 02:00 87 10 128/62 (84) 97 Nasal Cannula 2.00 08/22/19 01:00 87 08/22/19 01:00 87 14 114/77 (89) 97 Nasal Cannula 2.00 08/22/19 00:00 81 12 108/57 (74) 98 Nasal Cannula 2.00 08/21/19 23:45 Nasal Cannula 2.00 08/21/19 23:45 36.5 08/21/19 23:00 77 17 136/81 (99) 97 Nasal Cannula 2.00 08/21/19 22:00 87 18 143/79 (100) 96 Nasal Cannula 2.00 08/21/19 21:00 88 27 104/81 (89) 95 Nasal Cannula 2.00 08/21/19 20:30 Nasal Cannula 2.00 08/21/19 20:00 94 28 145/83 (103) 96 Nasal Cannula 2.00 08/21/19 19:26 97 Nasal Cannula 2.00 08/21/19 19:06 96 08/21/19 19:00 112 28 117/96 (103) 96 Nasal Cannula 2.00 08/21/19 18:00 93 11 118/43 (68) 97 Nasal Cannula 2.00 08/21/19 17:00 105 19 103/70 (81) 97 Nasal Cannula 2.00 08/21/19 16:15 135 08/21/19 16:11 37.2 08/21/19 16:00 134 18 136/86 (103) 90 Nasal Cannula 2.00 I & O 08/22/19 07:00 Intake Total 915 ml Output Total 0 ml Balance 915 ml Height & Weight Height: 5'4.00" Weight: 219lbs. 1.0oz. 99.658146gp; 36.46 BMI Method:Stated General Appearance: Anxious, Mild Distress HEENT: PERRL/EOMI, Pharynx Normal Neck: Full Range of Motion, Normal Inspection, Non Tender, Supple Respiratory: Chest Non Tender, No Accessory Muscle Use, No Respiratory Distress, Crackles, Decreased Breath Sounds Capillary Refill: Less Than 3 Seconds Gastrointestinal: normal bowel sounds, non tender, soft Extremity: Normal Capillary Refill, Normal Inspection, No Pedal Edema Neurologic/Psychiatric: Alert, Oriented x3 Results Lab Laboratory Tests 08/21/19 16:45 08/22/19 04:15 Assessment/Plan Assessment/Plan Afib rvr -Cardizem gtt -HEMA planned for today -COVID screen pending oxygen dependent COPD - CXR pending -Advair -Start Duoneb CAD with hx of stent placement Obesity with JORGE LUIS and probable OHS -pt is on CPAP therapy DM II ELIZABETH FRANCISCO DO Aug 22, 2019 05:32
[2019-08-22] MEDS: SUCRALFATE 1 GM (CARAFATE) TAB PO SCH ×4 (06:43→20:43)
[2019-08-22] MEDS: ENOXAPARIN 100 MG/1 ML (LOVENOX) SYR SC SCH ×2 (06:43→18:53)
[2019-08-22] MEDS: inSUlin ASPART (NovoLOG) 1 UNIT/0.01 ML (CHARGE PER UNIT) SC SCH ×4 (06:46→20:43)
--- NOTE | 2019-08-22 07:29 | Diagnostic Imaging Report ---
CHEST 1 VIEW, AP/PA ONLY Indication: Shortness of breath Comparison: 07/24/2019 Findings: Stable enlargement of cardiac silhouette. Central vascular congestion has improved since prior examination. No consolidation within the visualized lungs. Posterior lower lobes are poorly evaluated by portable radiography. No pleural effusion or pneumothorax. Cardiac loop recording device is noted. Impression: 1. Cardiomegaly without features of jamar pulmonary edema or pneumonia by portable radiography. Dictated by: Dictated on workstation # [id number]
--- NOTE | 2019-08-22 08:51 | Cardiology History & Physical ---
HPI-Cardiology Cardiology Consultation Date of Consultation 08/22/19 Date of Admission Time Seen by Provider: 08:41 Indication: atrial fibrillation HPI 64-year-old lady with history of paroxysmal atrial fibrillation, sinus node dysfunction, unable to tolerate rate controlling medication due to severe bradycardia. Was doing well at home until the last visit yesterday in the offic where she was noted to be in atrial fibrillation with rapid ventricular response, has been complaining of fatigue and loss of energy. No chest pain. She was admitted to the intensive care unit and started on Cardizem drip PM-Cardiology Immunizations Up To Date Tetanus Booster (DTap): Unknown Date of Pneumonia Vaccine: Mar 05, 2013 Date of Influenza Vaccine: Jan 12, 2019 Seasonal Allergies Seasonal Allergies: No Surgeries Yes (neck and back surgeries) Respiratory Yes COPD, Pneumonia, Sleep Apnea Cardiovascular Yes (stents-has loop recorder placement) Atrial Fibrillation, Heart Murmur, High Cholesterol, Hypertension, Congestive Heart Failure, Coronary Artery Disease Neurological No Reproductive System Hx Reproductive Disorders: No Genitourinary No Bladder Infection, Renal Failure Gastrointestinal Yes Gastroesophageal Reflux, Chronic Constipation, Pancreatitis Musculoskeletal Yes (CHRONIC HIP PAIN BILATERALLY, FX NECK) Arthritis Endocrine Yes Diabetes, Insulin dep, Diabetes, Non-Insulin dep HEENT No Loss of Vision: Denies Hearing Impairment: Denies Cancer No Psychosocial Yes Anxiety Integumentary No Blood Transfusions No Social History Patient Social History Marrital Status: Employed/Student: employed Alcohol Use: Denies Use Recreational Drug Use: No Recent Foreign Travel: No Contact w/other who traveled: No Recent Infectious Disease Expo: No Family Hx Significant Family History: Diabetes, Hypertension Other Noncontributory Family History: Patient reports no known family medical history. ROS-Cardiology Review of Systems General: No Chills, No Night Sweats; Fatigue; No Malaise, No Appetite HEENT: No Head Aches, No Visual Changes, No Eye Pain, No Ear Pain, No Dysphasia, No Sinus Congestion, No Post Nasal Drip, No Sore Throat Pulmonary: Dyspnea; No Cough, No Pleuritic Chest Pain Cardiovascular: Palpitations; No: Chest Pain, Orthopnea, Paroxysmal Noc. Dyspnea, Edema, Lt Headedness Gastrointestinal: No: Nausea, Vomiting, Abdominal Pain, Diarrhea, Constipation, Melena, Hematochezia Genitourinary: No Dysuria, No Frequency, No Incontinence, No Hematuria, No Retention Musculoskeletal: No: neck pain, shoulder pain, arm pain, back pain, hand pain, leg pain, foot pain Neurological: No: Weakness, Numbness, Incoordination, Change in speech, Confusion, Seizures Home Medications & Allergies Allergies: Coded Allergies: morphine (Verified Adverse Reaction, Severe, hallucination, 07/12/18) Home Medication List Reviewed: Yes Exam-Cardiology Vital Signs Vital Signs Date Time Temp Pulse Resp B/P (MAP) Pulse Ox O2 Delivery O2 Flow Rate FiO2 08/22/19 08:00 36.3 08/22/19 06:00 73 14 139/81 (100) 94 Nasal Cannula 2.00 Exam General Appearance: Alert, Oriented X3, Cooperative, No Acute Distress HEENT: Atraumatic, PERRLA Respiratory: Clear to Auscultation, Normal Air Movement Cardiovascular: Normal S1, Normal S2, No Murmurs, Other (atrial fibrillation) Abdominal: Normal Bowel Sounds, Soft, No Tenderness, No Hepatosplenomegaly, No Masses Extremities: No Clubbing, No Cyanosis, No Edema, Normal Pulses, No Tenderness/Swelling Skin: No Rashes, No Breakdown, No Significant Lesion Neuro: Normal Gait, Normal Speech, Strength at 5/5 X4 Ext, Normal Tone, Sensation Intact Psych/Mental Status: Mental Status NL, Mood NL Results Labs Labs Laboratory Tests 08/21/19 16:45: White Blood Count 5.5, Red Blood Count 3.78L, Hemoglobin 10.6L, Hematocrit 34L, Mean Corpuscular Volume 91, Mean Corpuscular Hemoglobin 28, Mean Corpuscular Hemoglobin Concent 31L, Red Cell Distribution Width 15.2H, Platelet Count 136, Mean Platelet Volume 11.1H, Prothrombin Time 19.6H, INR Comment 1.6H, Activated Partial Thromboplast Time 36H, Sodium Level 141, Potassium Level 4.8, Chloride Level 107, Carbon Dioxide Level 22, Anion Gap 12, Blood Urea Nitrogen 26H, Creatinine 1.55H, Estimat Glomerular Filtration Rate 34, BUN/Creatinine Ratio 17, Glucose Level 247H, Calcium Level 9.3, Corrected Calcium 9.4, Magnesium Level 1.7, Total Bilirubin 0.3, Aspartate Amino Transf (AST/SGOT) 45H, Alanine Aminotransferase (ALT/SGPT) 33, Alkaline Phosphatase 85, Total Protein 7.5, Albumin 3.9, Thyroid Stimulating Hormone (TSH) 2.09 6/1/20 17:30: 08/21/19 20:58: Glucometer 235H 08/22/19 04:15: White Blood Count 5.7, Red Blood Count 4.06L, Hemoglobin 11.2L, Hematocrit 37, Mean Corpuscular Volume 90, Mean Corpuscular Hemoglobin 28, Mean Corpuscular Hemoglobin Concent 31L, Red Cell Distribution Width 15.0H, Platelet Count 112L, Mean Platelet Volume 10.5H, Sodium Level 140, Potassium Level 4.3, Chloride Level 105, Carbon Dioxide Level 22, Anion Gap 13, Blood Urea Nitrogen 23H, Creatinine 1.46H, Estimat Glomerular Filtration Rate 36, BUN/Creatinine Ratio 16, Glucose Level 209H, Calcium Level 9.1, Magnesium Level 1.8, Neutrophils (%) (Auto) 62, Lymphocytes (%) (Auto) 26, Monocytes (%) (Auto) 6, Eosinophils (%) (Auto) 6, Basophils (%) (Auto) 0, Neutrophils # (Auto) 3.5, Lymphocytes # (Auto) 1.5, Monocytes # (Auto) 0.3, Eosinophils # (Auto) 0.3, Basophils # (Auto) 0.0, Phosphorus Level 3.8 08/22/19 06:42: Glucometer 228H A/P-Cardiology Admission Diagnosis Paroxysmal atrial fibrillation Sinus node dysfunction Coronary artery disease Hypertension Admission Status: Inpatient Order (span 2 midnights) Reason for Inpatient Admission: Patient is starting on Cardizem drip and need monitoring Assessment/Plan Paroxysmal atrial fibrillation, sinus node dysfunction with severe bradycardia secondary to medication, had history of hospitalization for syncope and bradycardia, was off all the medication that affected her and caused her syncopal episodes. Back in atrial fibrillation with rapid ventricular response. Patient was admitted to intensive care unit, started on Cardizem drip, heart rate is controlled but still in atrial fibrillation, I monitored the patient overnight hoping that she will convert to sinus rhythm, this morning she is still in atrial fibrillation subsequently I will proceed with HEMA and electrical cardioversion Sinus node dysfunction with episode of severe bradycardia secondary to medication, was unable to tolerate Multaq, Amiodarone, Cardizem with syncope and severe bradycardia. At this point she is tachycardic, having heart rate 120. She will need to have a pacemaker with electrical cardioversion. History of chest pain, nonspecific etiology, patient reports improvement. Continue to monitor. Coronary artery disease, history of stent placement 2 to the LAD. In August 2013 cardiac cath revealed patent stents to LAD, known to have Taxus 320 mm stent in the mid LAD, proximal to that there was a stent placed in 2011 which is 312 mm Ion stent. Both are patent with 40-50 percent in-stent restenosis. Secondary branch had 90 percent stenosis at the ostium. Small artery, not amendable to intervention. Cardiac catheterization February 2015 showing patent stents in the proximal LAD with 50 percent stenosis beyond the stent and 50 percent stenosis at the midportion of the LAD small vessel disease distally, moderate 40 -50 percent stenosis in the right coronary artery with multiple segment of the proximal, mid and distal portion. Cardiac catheterization March 05, 2017 revealed severe LAD stenosis beyond the previously known stent 3.0. Successful primary stenting using 308 mm ALPINE expanded to 3.5 with excellent results, balloon for in-stent restenosis also was made. Most recent cardiac catheterization done March 09, 2018 revealed patent stent with small vessel disease, no intervention required. Continue to monitor Bilateral hip pain, was seen by Dr. Willis, underwent CT A of abdominal aorta wit h runoff done March 31, 2019 revealing diffuse atherosclerotic changes involving bilateral lower extremity arterial systems occlusion of proximal right anterior tibial artery with reconstitution at mid calf. High-grade stenosis involving the distal left SFA, significant stenosis at the tibial peroneal trunk on the left. Probable occlusion of the proximal left posterior tibial artery with reconstitution. Patient is not having any claudication pain, rest pain, ulceration or gangrene, continue to monitor [id number] score of 4, yearly risk of stroke without oral anticoagulation is 4 percent. continue on, I will start on Lovenox while in the hospital Hypertension, good control at home, continue to monitor. Renal arterial duplex done July 2015 revealed proximal right renal artery not evaluated, other segments of the left renal artery demonstrated no evidence of significant stenosis, continue to monitor History of acute renal failure, dehydration, during her hospitalization earlier in 2018. Continue to monitor renal function at this time. Hyperlipidemia, continue to monitor lipids Obstructive sleep apnea, using C Pap machine, COPD using oxygen continuously. Carotid artery stenosis, reporting that she had scan done at [facility] and she was told that she has severe stenosis in the right carotid artery and she will need surgery. Repeat carotid duplex done and are office February 2019 revealed bilateral moderate ICA stenosis, continue to monitor. Diabetes mellitus-managed by primary care physician Chronic pain, followed and managed by primary care physician Obesity, BMI is 37, discussed diet and exercise for weight loss. Clinical Quality Measures DVT/VTE Risk/Contraindication: Risk Factor Score Per Nursin RFS Level Per Nursing on Admit: 4+=Very High BOOM MILLER MD Aug 22, 2019 08:50
--- NOTE | 2019-08-22 08:52 | Cardiac Procedure Note-CS/ASA ---
Pre-Procedure Note Pre-Op Procedure Note H&P Reviewed The H&P was reviewed, patient examined and no changes noted. Date H&P Reviewed: Aug 22, 2019 Time H&P Reviewed: 08:52 Conscious Sedation Pre-Proced Time 08:52 ASA Score 3 For ASA 3 and 4: Consider anesthesia and medical clearance. Also, for patients with a history of failed moderate sedation consider anesthesia. Airway Lungs Heart ASA score ASA 1: a normal healthy patient ASA 2: a patient with a mild systemic disease (mid diabetes, controlled hypertension, obesity x ASA 3: a patient with a severe systemic disease that limits activity (angina, COPD, prior Myocardial infarction) ASA 4: a patient with an incapacitating disease that is a constant threat to life (CHF, renal failure) ASA 5: a moribund patient not expected to survive 24 hrs. (ruptured aneurysm) ASA 6: a declared brain- patient whose organs are being harvested. For emergent operations, add the letter E after the classification Mallampati Classification Grade 3 Sedation Plan Analgesia, Amnesia, Plan communicated to team members, Discussed options with patient/fam, Discussed risks with patient/fam The patient is an appropriate candidate to undergo the planned procedure, sedation, and anesthesia. The patient immediately re-assessed prior to indication. BOOM MILLER MD Aug 22, 2019 08:52
[2019-08-22] MEDS ORDERED: NON-FORMULARY MEDICATION 1 EA EA (Torsemide 10 MG) PO SCH (09:00)
--- NOTE | 2019-08-22 09:09 | Consultation - Hospitalist ---
HPI History of Present Illness: HPI/Chief Complaint CC: AFIB with RVR in need of cardioversion and pacemaker HPI: This is a 64yoWF clinic Pt of [facility] who presents to the ER with AFIB with RVR, will need cardioversion today at noon and a pacemaker placement tomorrow. She is well known from multiple inpatient rehab admission and last was [facility] swingbed about four weeks ago. She had been doing very well since that time after she was discharged until very recently. At this current time, Pt denies any pain and is otherwise breathing well and maintained on oxygen, we will restart most of her home medications. Source: patient Exam Limitations: no limitations Date Seen 08/22/19 Attending Physician Mary West MD PCP Obdulio Cabral MD Referring Physician Date of Admission Aug 21, 2019 at 15:52 Home Medications & Allergies Home Medications Reviewed patient Home Medication Reconciliation performed by pharmacy medication reconciliations pressure testing technician and/or nursing. Patients Allergies have been reviewed. Allergies Allergies Coded Allergies amiodarone (Verified Allergy, Intermediate, Shortness of Breath, 08/22/19) morphine (Verified Adverse Reaction, Severe, hallucination, 07/12/18) Past Oftrnvb-Gczusx-Hxgyxb Hx Past Med/Social Hx: Reviewed Nursing Past Med/Soc Hx, Reviewed and Corrections made Patient Social History Marrital Status: Employed/Student: employed Alcohol Use: Denies Use Recreational Drug Use: No Former Smoker, Quit: Mar 24, 1997 Type Used: Cigarettes 2nd Hand Smoke Exposure: No Physical Abuse Screen: No Sexual Abuse: No Recent Foreign Travel: No Contact w/other who traveled: No Recent Hopitalizations: Yes Recent Infectious Disease Expo: No Immunizations Up To Date Tetanus Booster (TDap): Unknown Pediatric: Yes Date of Pneumonia Vaccine: Mar 05, 2013 Date of Influenza Vaccine: Jan 12, 2019 Seasonal Allergies Seasonal Allergies: No Past Medical History Surgeries: Coronary Stent, Gallbladder, Hysterectomy, Orthopedic Respiratory: COPD, Pneumonia, Sleep Apnea Currently Using CPAP: Yes Currently Using BIPAP: No Cardiac: Atrial Fibrillation, Coronary Artery Disease, High Cholesterol, Hypertension : No Reproductive: No Genitourinary: Bladder Infection, Renal Failure Gastrointestinal: Gastroesophageal Reflux, Gastrointestinal Bleed, Chronic Constipation, Pancreatitis stomach ulcer Musculoskeletal: Arthritis, Chronic Back Pain Endocrine: Diabetes, Insulin dep, Diabetes, Non-Insulin dep Are Your Blood Sugars Over 250: Yes (SOMETIMES, NOT ALWAYS) Loss of Vision: Denies Hearing Impairment: Denies Psychosocial: Anxiety History of Blood Disorders: No Family History Patient reports no known family medical history. Diabetes, Hypertension Review of Systems Constitutional: see HPI Cardiovascular: palpitations Physical Exam Physical Exam Vital Signs Vital Signs - First Documented 08/21/19 08/21/19 16:00 16:11 Temp 37.2 Pulse 134 Resp 18 B/P (MAP) 136/86 (103) Pulse Ox 90 O2 Delivery Nasal Cannula O2 Flow Rate 2.00 Capillary Refill : Height, Weight, BMI Height: 5'4.00" Weight: 219lbs. 1.0oz. 99.883228iq; 36.46 BMI Method:Stated General Appearance: No Apparent Distress, WD/WN, Chronically ill Eyes: Bilateral Eye Normal Inspection, Bilateral Eye PERRL HEENT: PERRL/EOMI, Normal ENT Inspection, Pharynx Normal Neck: Full Range of Motion, Normal Inspection, Non Tender, Supple, Carotid Bruit Respiratory: Chest Non Tender, Lungs Clear, Normal Breath Sounds, No Accessory Muscle Use, No Respiratory Distress Cardiovascular: Regular Rate, Rhythm, No Edema, No Gallop, No JVD, No Murmur, Normal Peripheral Pulses Gastrointestinal: Normal Bowel Sounds, No Organomegaly, No Pulsatile Mass, Non Tender, Soft Back: Normal Inspection, No CVA Tenderness, No Vertebral Tenderness Extremity: Normal Capillary Refill, Normal Inspection, Normal Range of Motion, Non Tender, No Calf Tenderness, No Pedal Edema Neurologic/Psychiatric: Alert, Oriented x3, No Motor/Sensory Deficits, Normal Mood/Affect Skin: Normal Color, Warm/Dry Lymphatic: No Adenopathy Results Results/Procedures Labs Laboratory Tests 08/21/19 16:45 08/22/19 04:15 Patient resulted labs reviewed. Assessment/Plan Assessment and Plan Assess & Plan/Chief Complaint (!A) AF w/RVR requiring cardioversion today at 1200 then pacemaker placement tomorrow (1) Recent right orbit fracture (2) Acute on chronic renal insufficiency (3) Diabetes mellitus, type 2 (4) A-fib (5) HTN (hypertension) (6) HLD (hyperlipidemia) (7) Congestive heart failure (CHF) (8) COPD (chronic obstructive pulmonary disease) (9) Multilevel degenerative disc disease (10) h/o Syncope (11) Severe anemia requiring transfusions last admit from stomach ulcers on EGD Dr Hussein (12) Carotid stenosis (13) Coronary artery disease (14) DVT prophylaxis Plan: Cardioversion Pacemaker Diagnosis/Problems Diagnosis/Problems (1) Atrial fibrillation with rapid ventricular response Status: Acute (2) Congestive heart failure (CHF) Status: Chronic (3) HTN (hypertension) Status: Chronic Clinical Quality Measures DVT/VTE Risk/Contraindication: Risk Factor Score Per Nursin RFS Level Per Nursing on Admit: 4+=Very High ZACK ESCOBEDO DO Aug 22, 2019 09:09
[2019-08-22] MEDS: RT-ALBUTEROL/IPRATROPIUM 3 ML (DUONEB) VIAL INH SCH ×3 (09:40→21:00)
[2019-08-22] MEDS: ADVAIR HFA 115/21 MCG INHALER 8 GM IH SCH ×2 (09:41→21:00)
[2019-08-22] MEDS ORDERED: SUCR1TAB PO (10:11)
[2019-08-22] MEDS ORDERED: PANT40TA2 PO (10:11)
[2019-08-22] MEDS ORDERED: INSU100I29 SQ (10:11)
[2019-08-22] MEDS ORDERED: RIVA20TA PO (10:11)
[2019-08-22] MEDS ORDERED: FLUT1DIS26 PO (10:16)
--- NOTE | 2019-08-22 10:30 | NUR ---
SPOKE WITH THE PT, WENT THRU THE EXT MED HISTORY AND CALLED [facility] IN FS TO COMPLETE THE MED REC GABAPENTIN 600MG: PT LAST FILLED THIS ON 08-21-2018 WITH DIRECTIONS OF 1 TAB TID- HOWEVER PT JUST TAKES 1 TAB BID. SINCE 08-21-2018 SHE HAS PICKED THIS UP WITH THE TID DIRECTIONS AND GETS #90 EACH TIME. IF YOU ADD ALL THE TABS FROM THE PAST YEAR SHE STILL HAS PLENTY AND PT AGREES AND SAYS SHE STILL HAS SOME AT HOME PT IS NO LONGER TAKING METFORMIN ER 500MG- PT INDICATED THE FIRST WEEK OF JULY [address] DISCONTINUED OTC MEDS: CALCIUM W/ VIT D CINNAMON BARK MAG-OX MTV FISH OIL POTASSIUM GLUC SENNA S
[2019-08-22] MEDS ORDERED: LIDOCAINE 2% VISCOUS 15 ML UDC ONE (10:38)
--- NOTE | 2019-08-22 11:20 | NUR ---
Pastoral care visit, had prayer with pt.
[2019-08-22] MEDS ORDERED: NS IV 1000 ML 1,000 ML ONE (11:33)
[2019-08-22] MEDS ORDERED: MIDAZOLAM 2 MG/2 ML (VERSED) VIAL ONE (12:01)
--- NOTE | 2019-08-22 12:42 | Cardioversion ---
Cardioversion PROCEDURE PHYSICIAN: Boom West DATE OF PROCEDURE: 08/22/19 DIRECT EXTERNAL ELECTRICAL CARDIOVERSION: Indications: Atrial Fibrillation with rapid ventricular rate Preoperative diagnoses: Atrial Fibrillation with rapid ventricular rate Postoperative diagnosis: Sinus rhythm, Successful Electrical Cardioversion Anesthesia: By Anesthesia services Complications: None Specimen: None Contrast: 0 Flouroscopy: none Procedure Details: The patient was brought the laboratory clerk after informed consent was taken, all the risks and complications were explained including the risk of stroke. Electrical cardioversion was carried out with anesthesia support with propofol. 200 joules of synchronized shock was delivered through external patches which promptly restored sinus rhythm. The patient tolerated the procedure well. Conclusions: Successful DC cardioversion with no complication BOOM WEST MD Aug 22, 2019 12:42 pm
[2019-08-22] MEDS ORDERED: AMIODARONE FOR BOLUS 150 MG in D5W 100 ML IVPB 100 ML IV NR (13:00)
[2019-08-22] MEDS: ASPIRIN E.C. 81 MG (ECOTRIN) TAB PO SCH (13:08)
[2019-08-22] MEDS: PANTOPRAZOLE 40 MG (PROTONIX) TAB PO SCH ×2 (13:09→20:43)
[2019-08-22] MEDS: ISOSORBIDE MONONITRATE 60 MG (IMDUR) TAB PO SCH (13:09)
[2019-08-22] MEDS: TORSEMIDE 20 MG (DEMADEX) TAB PO SCH (13:09)
[2019-08-22] MEDS: GABAPENTIN 600 MG (NEURONTIN) TAB PO SCH ×2 (13:09→20:43)
[2019-08-22] MEDS: SPIRONOLACTONE 25 MG (ALDACTONE) TAB PO SCH (13:09)
[2019-08-22] MEDS ORDERED: AMIODARONE INJECTION 450 MG in D5W IV SOLUTION (EXCEL) 250 ML IV SCH (13:15)
--- NOTE | 2019-08-22 13:25 | Anesthesia-General Post-Op ---
MAC Patient Condition Mental Status/LOC: Same as Preop Cardiovascular: Satisfactory Nausea/Vomiting: Absent Respiratory: Satisfactory Pain: Controlled Complications: Absent Post Op Complications Complications None Follow Up Care/Instructions Patient Instructions None needed. Anesthesiology Discharge Order Discharge Order Patient is doing well, no complaints, stable vital signs, no apparent adverse anesthesia problems. No complications reported per nursing. JAVIER METZGER CRNA Aug 22, 2019 13:25
--- NOTE | 2019-08-22 14:05 | NUR ---
AMIODARONE BOLUS IV STARTED AT 1343. PT CALLED THIS RN INTO ROOM STATING SHE WAS HAVING DIFFICULTY BREATHING AND PAIN ALL OVER HER ABDOMEN CHEST AREA AND HEADACHE. THIS RN TURNED AMIODARONE GTT OFF AND FLUSHED IV. PT O2 SAT 88% ON 2L/NC, O2 O2 INCREASED AND VS CHECKED. THIS RN NOTIFIED DR MILLER AND PHARMACY, DR MILLER STATED TO DC GTT AND LIST ALLERGY ON PT PROFILE. NEW ORDERS RECEIVED. PT STATES FEELING BETTER BY 1405 AND O2 TURNED TO 3L/NC. WILL CONTINUE TO MONITOR.
[2019-08-22] MEDS: MAGNESIUM OXIDE (MAG-OX)400 MG TAB PO SCH (20:43)
[2019-08-22] MEDS: SENNA W/DOCUSATE (SENOKOT S) TABLET PO SCH (20:43)
[2019-08-22] MEDS: FENOFIBRATE 134 MG (LOFIBRA) CAPSULE PO SCH (20:43)
[2019-08-22] MEDS: PRIMIDONE 50 MG TAB (MYSOLINE) PO SCH (20:43)
[2019-08-23] VITALS (26 sets, daily range): BP systolic 91–157; BP diastolic 60–123
[2019-08-23] MEDS: RT-ALBUTEROL/IPRATROPIUM 3 ML (DUONEB) VIAL INH SCH ×4 (02:14→18:35)
[2019-08-23 03:06] LABS: BASOPHILS % (AUTO) 0 % (0-10); EOSINOPHILS # (AUTO) 0.3 10^3/uL (0.0-0.3); EOSINOPHILS % (AUTO) 6 % (0-10); HEMATOCRIT 32 % (35-52); LYMPHOCYTES # (AUTO) 1.2 X 10^3 (1.0-4.0); LYMPHOCYTES % (AUTO) 25 % (12-44); MEAN CORPUSCULAR HEMOGLOBIN 28 PG (25-34); MEAN CORPUSCULAR HGB CONC 31 G/DL (32-36); MEAN CORPUSCULAR VOLUME 90 FL (80-99); MEAN PLATELET VOLUME 10.5 FL (7.4-10.4); MONOCYTES # (AUTO) 0.2 X 10^3 (0.0-1.0); MONOCYTES % (AUTO) 4 % (0-12); NEUTROPHILS # (AUTO) 3.2 X 10^3 (1.8-7.8); NEUTROPHILS % (AUTO) 65 % (42-75); PLATELET COUNT 102 10^3/uL (130-400); RED CELL DISTRIBUTION WIDTH 14.8 % (10.0-14.5); WHITE BLOOD COUNT 4.9 10^3/uL (4.3-11.0)
[2019-08-23 03:25] LABS: POTASSIUM 4.1 MMOL/L (3.6-5.0)
[2019-08-23 03:26] LABS: CALCIUM 8.8 MG/DL (8.5-10.1)
[2019-08-23 03:31] LABS: CREATININE SERUM 1.38 MG/DL (0.60-1.30); PHOSPHORUS 3.4 MG/DL (2.3-4.7)
[2019-08-23 03:33] LABS: MAGNESIUM 1.8 MG/DL (1.6-2.4)
--- NOTE | 2019-08-23 04:40 | Pulmonary Progress Note ---
Subjective Time Seen by a Provider: 04:38 Subjective/Events-last exam Pt is going to have pacemaker today. Sepsis Event Evaluation Height, Weight, BMI Height: 5'4.00" Weight: 219lbs. 1.0oz. 99.945734ss; 36.46 BMI Method:Stated Exam Exam Vital Signs Date Time Temp Pulse Resp B/P (MAP) Pulse Ox O2 Delivery O2 Flow Rate FiO2 08/23/19 04:02 Nasal Cannula 2.00 08/23/19 03:10 36.3 08/23/19 02:13 94 Nasal Cannula 2.00 08/23/19 01:00 90 08/23/19 01:00 36.6 08/23/19 00:49 36.5 86 18 155/85 (108) 96 Nasal Cannula 2.00 08/23/19 00:00 Nasal Cannula 2.00 08/22/19 21:01 94 Room Air 08/22/19 20:30 Nasal Cannula 2.00 08/22/19 20:00 36.7 08/22/19 19:00 85 08/22/19 18:00 84 18 154/92 (112) 98 Nasal Cannula 2.00 08/22/19 17:00 86 23 144/79 (100) 98 Nasal Cannula 2.00 08/22/19 16:06 86 Room Air 08/22/19 16:00 Nasal Cannula 2.00 08/22/19 16:00 86 14 132/65 (87) 97 Nasal Cannula 2.00 08/22/19 16:00 36.7 08/22/19 15:00 84 22 140/82 (101) 99 Nasal Cannula 2.00 08/22/19 14:05 Nasal Cannula 3.00 08/22/19 14:00 80 27 130/73 (92) 100 Nasal Cannula 2.00 08/22/19 13:54 80 24 123/73 (90) 99 Nasal Cannula 7.00 08/22/19 13:43 87 130/71 08/22/19 13:05 85 08/22/19 13:00 89 20 131/74 (93) 99 Nasal Cannula 2.00 08/22/19 12:00 83 12 131/74 (93) 97 Nasal Cannula 2.00 08/22/19 12:00 36.4 08/22/19 12:00 Nasal Cannula 2.00 08/22/19 11:00 96 9 131/81 (98) 95 Nasal Cannula 2.00 08/22/19 10:00 87 19 115/76 (89) 97 Nasal Cannula 2.00 08/22/19 09:40 93 Nasal Cannula 2.00 08/22/19 09:00 76 25 137/95 (109) 96 Nasal Cannula 2.00 08/22/19 08:00 Nasal Cannula 2.00 08/22/19 08:00 36.3 08/22/19 08:00 75 15 138/76 (96) 97 Nasal Cannula 2.00 08/22/19 07:00 84 08/22/19 07:00 71 15 133/82 (99) 97 Nasal Cannula 2.00 08/22/19 06:00 73 14 139/81 (100) 94 Nasal Cannula 2.00 08/22/19 05:00 80 12 128/73 (91) 96 Nasal Cannula 2.00 I & O 08/23/19 07:00 Intake Total 1250 ml Output Total 2300 ml Balance -1050 ml Height & Weight Height: 5'4.00" Weight: 219lbs. 1.0oz. 99.504759ri; 36.46 BMI Method:Stated General Appearance: No Apparent Distress, WD/WN, Chronically ill HEENT: PERRL/EOMI, Normal ENT Inspection, Pharynx Normal Neck: Full Range of Motion, Normal Inspection, Non Tender, Supple, Carotid Bruit Respiratory: Chest Non Tender, Lungs Clear, Normal Breath Sounds, No Accessory Muscle Use, No Respiratory Distress Cardiovascular: Regular Rate, Rhythm, No Edema, No Gallop, No JVD, No Murmur, Normal Peripheral Pulses Extremity: Normal Capillary Refill, Normal Inspection, Normal Range of Motion, Non Tender, No Calf Tenderness, No Pedal Edema Neurologic/Psychiatric: Alert, Oriented x3, No Motor/Sensory Deficits, Normal Mood/Affect Skin: Normal Color, Warm/Dry Lymphatic: No Adenopathy Results Lab Laboratory Tests 08/21/19 16:45 08/22/19 04:15 08/23/19 02:47 Assessment/Plan Assessment/Plan s/p Afib rvr -Cardizem po -s/p HEMA/cardioversion -Plan for pacemaker today -COVID -- neg oxygen dependent COPD - CXR -Advair -Duoneb CAD with hx of stent placement Obesity with JORGE LUIS and probable OHS -pt is on CPAP therapy DM II ELIZABETH FRANCISCO DO Aug 23, 2019 04:40
[2019-08-23] MEDS: POTASSIUM CL 10MEQ/50ML IVPB 50 ML IV SCH (04:57)
[2019-08-23] MEDS: KCL 20 MEQ TAB (K-DUR) PO SCH (04:58)
[2019-08-23] MEDS: inSUlin ASPART (NovoLOG) 1 UNIT/0.01 ML (CHARGE PER UNIT) SC SCH ×4 (04:58→21:15)
[2019-08-23] MEDS: MAGNESIUM 1 GM/100 ML IVPB 100 ML IV SCH (04:58)
[2019-08-23] MEDS: SUCRALFATE 1 GM (CARAFATE) TAB PO SCH ×4 (05:16→21:16)
[2019-08-23] MEDS: ADVAIR HFA 115/21 MCG INHALER 8 GM IH SCH ×2 (06:42→18:48)
[2019-08-23] MEDS ORDERED: NS IV 1000 ML 1,000 ML IV ONE (06:46)
[2019-08-23] MEDS ORDERED: HEParin (CATH LAB) 1,000 ML IV ONE (06:59)
[2019-08-23] MEDS ORDERED: LIDOCAINE 1% INJ 20 ML 20 ML VIAL ONE (06:59)
[2019-08-23] MEDS ORDERED: BACITRACIN INJECTION 50,000 UNIT, SODIUM CHLORIDE 0.9% IRRIGATIO 500 ML IR ONE ×2 (07:00)
[2019-08-23] MEDS ORDERED: ceFAZolin INJECTION 1,000 MG VIAL IV ONE (07:00)
[2019-08-23] MEDS ORDERED: WATER (STERILE) FOR INJECTION 10 ML ONE (07:19)
[2019-08-23] MEDS ORDERED: NS IV 1000 ML 1,000 ML ONE (07:45)
[2019-08-23] MEDS ORDERED: fentaNYL INJECTION 100 MCG/2 ML AMP ONE ×2 (07:48→08:35)
[2019-08-23] MEDS ORDERED: MIDAZOLAM 5 MG/5 ML (VERSED) VIAL ONE ×2 (07:48→08:35)
[2019-08-23] MEDS ORDERED: meTOprolol 5 MG/5 ML (LOPRESSOR) VIAL ONE (08:53)
--- NOTE | 2019-08-23 09:23 | Progress Note - Hospitalist ---
Subjective HPI/CC On Admission Date Seen by Provider: Aug 23, 2019 Time Seen by Provider: 10:00 CC: AFIB with RVR in need of cardioversion and pacemaker HPI: This is a 64yoWF clinic Pt of [facility] who presents to the ER with AFIB with RVR, will need cardioversion today at noon and a pacemaker placement tomorrow. She is well known from multiple inpatient rehab admission and last was [facility] swingbed about four weeks ago. She had been doing very well since that time after she was discharged until very recently. At this current time, Pt denies any pain and is otherwise breathing well and maintained on oxygen, we will restart most of her home medications. Subjective/Events-last exam Pt just had her pacemaker placed Creatinine of 1.38 Hgb: 10 Checking iron level Overall doing very well otherwise Denies any significant SOB Review of Systems General: Fatigue Pulmonary: Dyspnea Objective Exam Vital Signs Vital Signs Date Time Temp Pulse Resp B/P (MAP) Pulse Ox O2 Delivery O2 Flow Rate FiO2 08/23/19 18:35 94 Nasal Cannula 2.00 08/23/19 18:00 85 18 138/76 (96) 08/23/19 15:37 36.4 Capillary Refill : General Appearance: No Apparent Distress, WD/WN, Chronically ill Respiratory: Chest Non Tender, Lungs Clear, Normal Breath Sounds, No Accessory Muscle Use, No Respiratory Distress Cardiovascular: Regular Rate, Rhythm, No Edema, No Gallop, No JVD, No Murmur, Normal Peripheral Pulses Results/Procedures Lab Laboratory Tests 08/23/19 02:47 Patient resulted labs reviewed. Assessment/Plan Assessment and Plan Assess & Plan/Chief Complaint (1A) AF w/RVR requiring cardioversion yesterday at 1200 and s/p pacemaker placement today (1) Recent right orbit fracture (2) Acute on chronic renal insufficiency (3) Diabetes mellitus, type 2 (4) A-fib (5) HTN (hypertension) (6) HLD (hyperlipidemia) (7) Congestive heart failure (CHF) (8) COPD (chronic obstructive pulmonary disease) (9) Multilevel degenerative disc disease (10) h/o Syncope (11) Severe anemia requiring transfusions last admit from stomach ulcers on EGD Dr Hussein (12) Carotid stenosis (13) Coronary artery disease (14) DVT prophylaxis Plan: s/p Cardioversion Pacemaker Iron level Diagnosis/Problems Diagnosis/Problems (1) Atrial fibrillation with rapid ventricular response Status: Acute (2) Congestive heart failure (CHF) Status: Chronic (3) HTN (hypertension) Status: Chronic Clinical Quality Measures DVT/VTE Risk/Contraindication: Risk Factor Score Per Nursin RFS Level Per Nursing on Admit: 4+=Very High ZACK ESCOBEDO DO Aug 23, 2019 09:23
[2019-08-23] MEDS ORDERED: NS IV 1000 ML 1,000 ML IV SCH (09:33)
--- NOTE | 2019-08-23 09:33 | Cardiac Procedure Note-CS/ASA ---
Pre-Procedure Note Pre-Op Procedure Note H&P Reviewed The H&P was reviewed, patient examined and no changes noted. Date H&P Reviewed: Aug 23, 2019 Time H&P Reviewed: 09:33 Conscious Sedation Pre-Proced Time 09:33 ASA Score 3 For ASA 3 and 4: Consider anesthesia and medical clearance. Also, for patients with a history of failed moderate sedation consider anesthesia. Airway Lungs Heart ASA score ASA 1: a normal healthy patient ASA 2: a patient with a mild systemic disease (mid diabetes, controlled hypertension, obesity x ASA 3: a patient with a severe systemic disease that limits activity (angina, COPD, prior Myocardial infarction) ASA 4: a patient with an incapacitating disease that is a constant threat to life (CHF, renal failure) ASA 5: a moribund patient not expected to survive 24 hrs. (ruptured aneurysm) ASA 6: a declared brain- patient whose organs are being harvested. For emergent operations, add the letter E after the classification Mallampati Classification Grade 3 Sedation Plan Analgesia, Amnesia, Plan communicated to team members, Discussed options with patient/fam, Discussed risks with patient/fam The patient is an appropriate candidate to undergo the planned procedure, sedation, and anesthesia. The patient immediately re-assessed prior to indication. BOOM MILLER MD Aug 23, 2019 09:33
--- NOTE | 2019-08-23 09:37 | Cardiology Progress Note ---
Subjective Date Seen by Provider: Aug 23, 2019 Time Seen by Provider: 09:36 Subjective/Events-last exam Patient is laying down in bed. No new complaint. Review of Systems General: No Chills, No Night Sweats, No Fatigue, No Malaise, No Appetite, No Other HEENT: No Head Aches, No Visual Changes, No Eye Pain, No Ear Pain, No Dysphasia, No Sinus Congestion, No Post Nasal Drip, No Sore Throat, No Other Pulmonary: No Dyspnea, No Cough, No Pleuritic Chest Pain, No Other Cardiovascular: No: Chest Pain, Palpitations, Orthopnea, Paroxysmal Noc. Dyspnea, Edema, Lt Headedness, Other Objective-Cardiology Exam Last Set of Vital Signs Vital Signs 08/23/19 08/23/19 08/23/19 06:00 06:43 07:15 Temp 36.6 Pulse 77 Resp 9 B/P (MAP) 120/63 (82) Pulse Ox 100 O2 Delivery Nasal Cannula O2 Flow Rate 2.00 Capillary Refill : I&O Intake and Output 08/23/19 00:00 Intake Total 1375 ml Output Total 2900 ml Balance -1525 ml Intake Oral 1250 ml IV Total 125 ml Output Urine Total 2900 ml General: Alert, Oriented X3, Cooperative, No Acute Distress HEENT: Atraumatic, PERRLA Neck: Supple, No JVD, No Thyromegaly Lungs: Clear to Auscultation, Normal Air Movement Heart: Normal S1, Normal S2, No Murmurs, Other (atrial fibrillation) Abdomen: Normal Bowel Sounds, Soft, No Tenderness, No Hepatosplenomegaly, No Masses Extremities: No Clubbing, No Cyanosis, No Edema, Normal Pulses, No Tenderness/Swelling Skin: No Rashes, No Breakdown, No Significant Lesion Neuro: Normal Gait, Normal Speech, Strength at 5/5 X4 Ext, Normal Tone, Sensation Intact Psych/Mental Status: Mental Status NL, Mood NL Results Lab Laboratory Tests 08/23/19 02:47 A/P-Cardiology Admission Diagnosis Paroxysmal atrial fibrillation Sinus node dysfunction Coronary artery disease Hypertension Assessment/Plan Paroxysmal atrial fibrillation, sinus node dysfunction with severe bradycardia s econdary to medication, had history of hospitalization for syncope and bradycardia, was off all the medication that affected her and caused her syncopal episodes. And went HEMA and cardioversion, status post dual-chamber pacemaker implant, tolerated procedure with Sinus node dysfunction with episode of severe bradycardia secondary to medication, was unable to tolerate Multaq, Amiodarone, Cardizem with syncope and severe bradycardia. Status post dual-chamber pacemaker, tolerated procedure well History of chest pain, nonspecific etiology, patient reports improvement. Cont inue to monitor. Coronary artery disease, history of stent placement 2 to the LAD. In August 2013 cardiac cath revealed patent stents to LAD, known to have Taxus 320 mm stent in the mid LAD, proximal to that there was a stent placed in 2011 which is 312 mm Ion stent. Both are patent with 40-50 percent in-stent restenosis. Secondary branch had 90 percent stenosis at the ostium. Small artery, not amendable to intervention. Cardiac catheterization February 2015 showing patent stents in the proximal LAD with 50 percent stenosis beyond the stent and 50 percent stenosis at the midportion of the LAD small vessel disease distally, moderate 40-50 percent stenosis in the right coronary artery with multiple segment of the proximal, mid and distal portion. Cardiac catheterization March 05, 2017 revealed severe LAD stenosis beyond the previously known stent 3.0. Successful primary stenting using 308 mm ALPINE expanded to 3.5 with excellent results, balloon for in-stent restenosis also was made. Most recent cardiac catheterization done March 09, 2018 revealed patent stent with small vessel disease, no intervention required. Continue to monitor Bilateral hip pain, was seen by Dr. Willis, underwent CT A of abdominal aorta with runoff done March 31, 2019 revealing diffuse atherosclerotic changes involving bilateral lower extremity arterial systems occlusion of proximal right anterior tibial artery with reconstitution at mid calf. High-grade stenosis involving the distal left SFA, significant stenosis at the tibial peroneal trunk on the left. Probable occlusion of the proximal left posterior tibial artery with reconstitution. Patient is not having any claudication pain, rest pain, ulceration or gangrene, continue to monitor [id number] score of 4, yearly risk of stroke without oral anticoagulation is 4 percent. continue on, I will start on Lovenox while in the hospital Hypertension, good control at home, continue to monitor. Renal arterial duplex done July 2015 revealed proximal right renal artery not evaluated, other segments of the left renal artery demonstrated no evidence of significant stenosis, continue to monitor History of acute renal failure, dehydration, during her hospitalization earlier in 2018. Continue to monitor renal function at this time. Hyperlipidemia, continue to monitor lipids Obstructive sleep apnea, using C Pap machine, COPD using oxygen continuously. Carotid artery stenosis, reporting that she had scan done at [facility] and she was told that she has severe stenosis in the right carotid artery and she will need surgery. Repeat carotid duplex done and are office February 2019 revealed bilateral moderate ICA stenosis, continue to monitor. Diabetes mellitus-managed by primary care physician Chronic pain, followed and managed by primary care physician Obesity, BMI is 37, discussed diet and exercise for weight loss. Clinical Quality Measures DVT/VTE Risk/Contraindication: Risk Factor Score Per Nursin RFS Level Per Nursing on Admit: 4+=Very High BOOM MILLER MD Aug 23, 2019 09:37
[2019-08-23] MEDS ORDERED: NEO/POLY/BAC (NEOSPORIN) OINT 15 GM TUBE ONE (09:43)
--- NOTE | 2019-08-23 09:44 | Permanent Pacemaker Implant ---
Dual Chamber Pacemaker Implant PROCEDURE PHYSICIAN: Boom West DUAL CHAMBER PACEMAKER IMPLANTATION: DATE OF PROCEDURE: 08/23/19 INDICATION: Sinus node dysfunction with syncope and severe bradycardia and proximal atrial fibrillation PREOPERATIVE DIAGNOSIS: Sinus node dysfunction POSTOPERATIVE DIAGNOSIS: Sinus node dysfunction HISTORY: 64-year-old lady with history of paroxysmal atrial fibrillation, was unable to tolerate rate controlling medicine due to severe bradycardia and syncope, admitted with atrial fibrillation rapid ventricular response, had HEMA and cardioversion and started on amiodarone and metoprolol, Dual-chamber permanent pacemaker was recommended. PROCEDURE PERFORMED: 1. Dual-chamber permanent pacemaker implantation. 2. Fluoroscopy. 3. Central venous access. ANESTHESIA: Local anesthesia, conscious sedation. COMPLICATIONS: None. ESTIMATED BLOOD LOSS:20 mL. SPECIMENS: None. ORAL ANTICOAGULATION: None. CONTRAST DOSE: 0 ml PROCEDURE DETAILS: The patient is a 64 female and after all of the patients questions were answered, the patient was brought to the EP Lab. The patient's left chest was prepped and draped in sterile fashion. A 2 inch horizontal incision was made 1 cm below the clavicle and dissection carried down to the pectoralis fascia. Using the modified Seldinger technique and under fluoroscopy guidance, the anterior aspect of the left axillary vein was accessed 2 times. The J wires were secured to the drapes with a mosquito clamp. A 7-Burundian sheath was introduced over one of the J-wires. The RV lead was then inserted. The RV lead was directed across the tricuspid valve to the apical septal portion of the right ventricle. The position was checked in TAJIK and CALDERON views. The screw was deployed and the lead connected to the perl programmer. Close sensing and pacing thresholds were obtained. Diaphragmatic pacing was ruled out. The lead was secured with 2-0 silk ties to the underlying muscle and fascia. Next, a 7-Burundian sheath was introduced through the remaining J-wire. An atrial lead was then introduced and guided to the level of the right appendage. The sc rew was deployed and the lead was connected to the interrogator. Good sensing and pacing thresholds were obtained. Diaphragmatic pacing was ruled out. The leads were secured with 2-0 silk ties to the underlying muscle and fascia. The leads were connected to the device in a hermetic fashion. The device and leads were placed in the pocket. Aggressive irrigation with saline solution was done. The device was secured to the underlying muscle and fascia with a 2-0 silk tie. interrogation of the device revealed good integrity of all the leads and good connections. The wound was then closed using 2 layers. The first layer was interrupted 2-0 absorbable Vicryl suture. The last layer was a single subcuticular layer with 4- 0 Vicryl suture. Half inch Steri-Strips and a small dressing were then applied to the wound. The patient tolerated the procedure well and was returned to the recovery room in stable condition with stable vital signs. DEVICE INFORMATION: JOHANNA Graham DR MRI Serial number [id number] RA LEAD: [id number] RV LEAD: [id number] PER-OPERATIVE DEVICE INTERROGATION: None IMMEDIATE POSTOPERATIVE DEVICE INTERROGATION: Atrial lead, threshold 0.4 ms at 0.75 V, impedance 360, P-wave 2.875 mV Ventricular lead, threshold 0.4 ms at 0.5 V, impedance 817, R wave 10.1 mV PLAN: The patient transferred to the ICU. We will continue with two more doses of IV antibiotics. We will check a chest x-ray and interrogate the device in the morning. The patient will continue on oral antibiotics for 5 days. CONCLUSION: Successful dual-chamber pacemaker implantation with no complication BOOM WEST MD Aug 23, 2019 09:44
[2019-08-23] MEDS ORDERED: PATIENT MAY USE OWN MEDS, ALL PO SCH (09:45)
[2019-08-23] MEDS: ASPIRIN E.C. 81 MG (ECOTRIN) TAB PO SCH (10:51)
[2019-08-23] MEDS: PANTOPRAZOLE 40 MG (PROTONIX) TAB PO SCH ×2 (10:51→21:16)
[2019-08-23] MEDS: ISOSORBIDE MONONITRATE 60 MG (IMDUR) TAB PO SCH (10:51)
[2019-08-23] MEDS: SPIRONOLACTONE 25 MG (ALDACTONE) TAB PO SCH (10:51)
[2019-08-23] MEDS: TORSEMIDE 20 MG (DEMADEX) TAB PO SCH (10:51)
[2019-08-23] MEDS: GABAPENTIN 600 MG (NEURONTIN) TAB PO SCH ×2 (10:51→21:15)
--- NOTE | 2019-08-23 10:53 | Diagnostic Imaging Report ---
INDICATION: Pacemaker placement. Time of exam: 1103 AM Correlation is made with prior chest one day earlier. Dual-lead left subclavian cardiac pacemaker has been placed with lead tips in the region of the right atrium and right ventricle. Heart is enlarged and stable. There is no pneumothorax identified. Lungs are clear. No effusion. There are postoperative changes in the lower cervical spine. IMPRESSION: Pacemaker placement. No complicating features are detected. Dictated by: Dictated on workstation # [id number]
[2019-08-23] MEDS: meTOproloL SUCCINATE 50 MG (TOPROL XL) TAB PO SCH (10:56)
[2019-08-23] MEDS ORDERED: AMIODARONE 200 MG (CORDARONE) TAB ONE (11:12)
--- NOTE | 2019-08-23 11:14 | NUR ---
AMIODARONE PO ORDERED FOR PATIENT, THIS NURSE CLARIFIED WITH DR. MILLER MEDICATION D/T REACTION YESTERDAY ET LISTED ALLERGY. DR. MILLER STATED THAT PATIENT NOW HAS PACEMAKER SO SHE SHOULD BE FINE, THIS NURSE REITERATED THAT REACTION YESTERDAY WITH IV MED. RECEIVED OK TO GIVE MEDICATION. PHARMACY NOTIFIED.
[2019-08-23] MEDS: AMIODARONE 200 MG (CORDARONE) TAB PO SCH ×2 (11:18→21:16)
[2019-08-23] MEDS: ceFAZolin INJECTION 1,000 MG in WATER (STERILE) FOR INJECTION 10 ML IV SCH ×2 (13:44→21:46)
[2019-08-23] MEDS: oxyCODONE/APAP 5/325MG (PERCOCET 5) TABLET PO PRN (13:45)
--- NOTE | 2019-08-23 13:52 | NUR ---
RD ASSESSMENT PMHx: COPD; pneumonia; afib; hypercholesterolemia; HTN; CHF; CAD; GERD; chronic constipation; pancreatitis; DM PT INTERACTION: Pt was semi-awake and pleasant during nutrition assessment. Pt states current appetite is okay. Note avg PO intake 100% x2meal, per chart review. Pt states no recent issues with nausea, vomiting, or diarrhea. Pt states some recent issues with constipation, and that her last BM was "the day before I was admitted." Note pt currently on bowel regimen of senna HS, per chart review. Pt states no recent wt changes. Note recent 3# wt loss x1mon, per chart review. Pt states good control of DM at this time. Note unable to determine recent HbA1c, per chart review. ABNORMAL NUTRITION-RELATED LAB VALUES LOW: HIGH: Bun 21; cr 1.38; glu 171 Est. kcal needs: 9342-8277 kcal | 15-18 kcal/kg Est. Pro needs: 80-100 g Pro | 0.8-1.0 g Pro/kg PES STATEMENT: Given current PO intake, no nutrition diagnosis at this time (NO-1.1) INTERVENTION: Continue with current diet order of 2000mg Na Diet. Pt may benefit from consistent CHO restriction if blood glucose levels become elevated. Began to offer DM education, but pt kept nodding off. Will attempt to offer again prior to discharge. Will continue to follow and reassess as pt needs, intake, and status change. MONITOR/EVALUATE: PO Intake; Plan of Care; Hydration Status; Weight Status; Lab Values Germán Azar, MS, RD, LD
--- NOTE | 2019-08-23 13:52 | Physician Query Clarification ---
"Physician Query-General Query to Physician: The medical record reflects the following clinical scenario: History/Risk factors: JORGE LUIS, oxygen dependent (continuous) COPD Clinical Findings: Admission 02 Sat of 90, Ongoing need for 02 Treatment: Cpap, continuous 02 Question: What condition best reflects the above clinical scenario? Please document response in the Progress notes or Discharge Summary. 1. Chronic Respiratory Failure 2. COPD using oxygen continuously (as currently documented) 3. Other , with explanation of the clinical findings 4. Clinically undetermined, no explanation for the clinical findings Please remember a lack of response to the above will prompt a phone page by CDI/coding staff In responding to this query, please exercise your independent professional judgment. The purpose of this communication is to more accurately reflect the complexity of your patients condition. The fact that a question is asked does not imply that any particular answer is desired or expected. Thank you for timely response to this clarification. Syeda Gore, MSN, RN RN Specialist-Clinical Doc Improvement CD -Health Info Mgmt Operations [address] [facility] t: [phone] | f: [phone] If you are unable to reach me at my extension, I may be working from home. Please contact me at [phone] PHYSICIAN RESPONSE: Based on the clinical findings in the record, please respond to the query above on this document as an addendum. Physician Response: Physician Response 2 If you have questions please contact: [employer] Professor: Ext: Thank you for your time and cooperation. Clinical Gauntlet Pairer/[employer] Professor This is a permanent part of the medical record SYEDA GORE Aug 23, 2019 13:52 BOOM MILLER MD Aug 23, 2019 16:43"
[2019-08-23] MEDS: dilTIAZem DRIP PRE-MIX 125 ML IV SCH (16:56)
[2019-08-23] MEDS: FENOFIBRATE 134 MG (LOFIBRA) CAPSULE PO SCH (21:15)
[2019-08-23] MEDS ORDERED: IRON SUCROSE 200 MG/10 ML (VENOFER) VIAL IV ONE (21:15)
[2019-08-23] MEDS: MAGNESIUM OXIDE (MAG-OX)400 MG TAB PO SCH (21:15)
[2019-08-23] MEDS: PRIMIDONE 50 MG TAB (MYSOLINE) PO SCH (21:16)
[2019-08-23] MEDS: SENNA W/DOCUSATE (SENOKOT S) TABLET PO SCH (21:16)
[2019-08-24] VITALS: BP 112/79
[2019-08-24] MEDS: oxyCODONE/APAP 5/325MG (PERCOCET 5) TABLET PO PRN ×2 (00:12→06:32)
[2019-08-24] MEDS: RT-ALBUTEROL/IPRATROPIUM 3 ML (DUONEB) VIAL INH SCH ×2 (03:11→07:42)
[2019-08-24 03:48] LABS: MEAN PLATELET VOLUME 11.4 FL (7.4-10.4); RED CELL DISTRIBUTION WIDTH 14.9 % (10.0-14.5); WHITE BLOOD COUNT 6.2 10^3/uL (4.3-11.0)
[2019-08-24 04:12] LABS: ALBUMIN 3.8 GM/DL (3.2-4.5); BILIRUBIN,TOTAL 0.5 MG/DL (0.1-1.0); CREATININE SERUM 1.5 MG/DL (0.60-1.30); MAGNESIUM 1.8 MG/DL (1.6-2.4); PHOSPHORUS 2.5 MG/DL (2.3-4.7); POTASSIUM 4.8 MMOL/L (3.6-5.0); TOTAL PROTEIN 7.3 GM/DL (6.4-8.2)
--- NOTE | 2019-08-24 04:31 | Pulmonary Progress Note ---
Subjective Time Seen by a Provider: 04:28 Subjective/Events-last exam Pt has some bleeding and pain post pacemaker. Currently doing well. Sepsis Event Evaluation Height, Weight, BMI Height: 5'4.00" Weight: 219lbs. 1.0oz. 99.293104rc; 36.46 BMI Method:Stated Exam Exam Vital Signs Date Time Temp Pulse Resp B/P (MAP) Pulse Ox O2 Delivery O2 Flow Rate FiO2 08/24/19 03:57 37.0 Nasal Cannula 3.00 08/24/19 03:50 37.0 08/24/19 03:11 94 Nasal Cannula 2.00 08/24/19 03:00 86 20 97 Nasal Cannula 2.00 08/24/19 02:00 89 18 95 Nasal Cannula 2.00 08/24/19 02:00 Nasal Cannula 2.00 08/24/19 01:00 96 32 96 Nasal Cannula 2.00 08/24/19 01:00 96 08/24/19 00:00 97 37 112/79 (90) 91 Nasal Cannula 2.00 08/23/19 23:52 Nasal Cannula 2.00 08/23/19 23:52 37.6 08/23/19 23:00 97 37 157/81 (106) 91 Nasal Cannula 2.00 08/23/19 22:00 97 16 142/83 (102) 93 Nasal Cannula 2.00 08/23/19 21:20 94 08/23/19 21:00 89 29 132/71 (91) 96 Nasal Cannula 2.00 08/23/19 20:30 Nasal Cannula 2.00 08/23/19 20:00 37.2 08/23/19 20:00 86 15 132/76 (94) 95 Nasal Cannula 2.00 08/23/19 19:00 89 27 107/60 (76) 97 Nasal Cannula 2.00 08/23/19 18:35 94 Nasal Cannula 2.00 08/23/19 18:00 85 18 138/76 (96) 97 Nasal Cannula 2.00 08/23/19 17:00 84 13 91/67 (75) 96 Nasal Cannula 2.00 08/23/19 16:00 97 Nasal Cannula 2.00 08/23/19 16:00 83 8 109/86 (94) 97 Nasal Cannula 2.00 08/23/19 15:37 36.4 08/23/19 15:00 92 13 120/87 (98) 89 Nasal Cannula 2.00 08/23/19 14:29 97 Nasal Cannula 2.00 08/23/19 14:00 85 28 146/123 (131) 96 Nasal Cannula 2.00 08/23/19 13:21 86 08/23/19 13:00 84 36 127/68 (87) 98 Nasal Cannula 2.00 08/23/19 12:30 87 42 127/75 (92) 96 Nasal Cannula 2.00 08/23/19 12:00 74 43 134/81 (98) 97 Nasal Cannula 2.00 08/23/19 12:00 97 Nasal Cannula 2.00 08/23/19 11:30 75 10 138/84 (102) 97 Nasal Cannula 2.00 08/23/19 11:15 78 28 141/84 (103) 96 Nasal Cannula 2.00 08/23/19 11:00 80 136/86 (103) 96 Nasal Cannula 2.00 08/23/19 10:45 77 9 130/70 (90) 96 Nasal Cannula 2.00 08/23/19 10:20 79 14 138/76 (96) 96 Nasal Cannula 2.00 08/23/19 09:00 Nasal Cannula 2.00 08/23/19 08:00 97 Nasal Cannula 2.00 08/23/19 08:00 92 14 97 Nasal Cannula 2.00 08/23/19 07:15 36.6 08/23/19 07:00 88 08/23/19 07:00 89 10 123/69 (87) 98 Nasal Cannula 2.00 08/23/19 06:43 100 Nasal Cannula 2.00 08/23/19 06:04 36.6 08/23/19 06:00 77 9 120/63 (82) 98 Nasal Cannula 2.00 08/23/19 05:00 82 7 138/79 (98) 93 Nasal Cannula 2.00 I & O 08/24/19 07:00 Intake Total 2390 ml Output Total 3150 ml Balance -760 ml Height & Weight Height: 5'4.00" Weight: 219lbs. 1.0oz. 99.763886hm; 36.46 BMI Method:Stated General Appearance: No Apparent Distress, WD/WN, Chronically ill HEENT: PERRL/EOMI, Normal ENT Inspection, Pharynx Normal Neck: Full Range of Motion, Normal Inspection, Non Tender, Supple, Carotid Bruit Respiratory: Chest Non Tender, Lungs Clear, Normal Breath Sounds, No Accessory Muscle Use, No Respiratory Distress Cardiovascular: Regular Rate, Rhythm, No Edema, No Gallop, No JVD, No Murmur, Normal Peripheral Pulses Capillary Refill: Less Than 3 Seconds Extremity: Normal Capillary Refill, Normal Inspection, Normal Range of Motion, Non Tender, No Calf Tenderness, No Pedal Edema Neurologic/Psychiatric: Alert, Oriented x3, No Motor/Sensory Deficits, Normal Mood/Affect Skin: Normal Color, Warm/Dry Lymphatic: No Adenopathy Results Lab Laboratory Tests 08/23/19 02:47 08/24/19 03:15 Assessment/Plan Assessment/Plan s/p Afib rvr -Cardizem po -s/p HEMA/cardioversion -s/p pacemaker -COVID -- neg oxygen dependent COPD - CXR -Advair -Duoneb CAD with hx of stent placement Obesity with JORGE LUIS and probable OHS -pt is on CPAP therapy DM II ELIZABETH FRANCISCO DO Aug 24, 2019 04:31
[2019-08-24] MEDS: MAGNESIUM 1 GM/100 ML IVPB 100 ML IV SCH (05:22)
[2019-08-24] MEDS: POTASSIUM CL 10MEQ/50ML IVPB 50 ML IV SCH (05:22)
[2019-08-24] MEDS: KCL 20 MEQ TAB (K-DUR) PO SCH (05:22)
[2019-08-24] MEDS: SUCRALFATE 1 GM (CARAFATE) TAB PO SCH ×2 (06:32→13:50)
[2019-08-24] MEDS: inSUlin ASPART (NovoLOG) 1 UNIT/0.01 ML (CHARGE PER UNIT) SC SCH ×2 (06:32→13:50)
[2019-08-24] MEDS: ceFAZolin INJECTION 1,000 MG in WATER (STERILE) FOR INJECTION 10 ML IV SCH (06:32)
--- NOTE | 2019-08-24 07:01 | Progress Note - Hospitalist ---
Subjective HPI/CC On Admission Date Seen by Provider: Aug 24, 2019 Time Seen by Provider: 09:30 CC: AFIB with RVR in need of cardioversion and pacemaker HPI: This is a 64yoWF clinic Pt of [facility] who presents to the ER with AFIB with RVR, will need cardioversion today at noon and a pacemaker placement tomorrow. She is well known from multiple inpatient rehab admission and last was [facility] swingbed about four weeks ago. She had been doing very well since that time after she was discharged until very recently. At this current time, Pt denies any pain and is otherwise breathing well and maintained on oxygen, we will restart most of her home medications. Subjective/Events-last exam Pt going home today Pacemaker placement was uncomplicated Left arm is in a sling Gave her an iron infusion last night because her level was 27, Hgb 10, but needed a little bit of a boost and she will go home and take her pill form of iron Review of Systems General: Fatigue Objective Exam Vital Signs Vital Signs Date Time Temp Pulse Resp B/P (MAP) Pulse Ox O2 Delivery O2 Flow Rate FiO2 08/24/19 14:30 08/24/19 12:00 Nasal Cannula 2.00 98 08/24/19 08:00 78 12 92 08/24/19 07:23 37.2 Capillary Refill : Less Than 3 Seconds General Appearance: No Apparent Distress, WD/WN Respiratory: Chest Non Tender, Lungs Clear, Normal Breath Sounds, No Accessory Muscle Use, No Respiratory Distress Results/Procedures Lab Patient resulted labs reviewed. Assessment/Plan Assessment and Plan Assess & Plan/Chief Complaint (1A) AF w/RVR requiring cardioversion yesterday at 1200 and s/p pacemaker placement (1) Recent right orbit fracture (2) Acute on chronic renal insufficiency (3) Diabetes mellitus, type 2 (4) A-fib (5) HTN (hypertension) (6) HLD (hyperlipidemia) (7) Congestive heart failure (CHF) (8) COPD (chronic obstructive pulmonary disease) (9) Multilevel degenerative disc disease (10) h/o Syncope (11) Severe anemia requiring transfusions last admit from stomach ulcers on EGD Dr Hussein (12) Carotid stenosis (13) Coronary artery disease (14) DVT prophylaxis Plan: s/p Cardioversion Pacemaker Iron level Diagnosis/Problems Diagnosis/Problems (1) Atrial fibrillation with rapid ventricular response Status: Acute (2) Congestive heart failure (CHF) Status: Chronic (3) HTN (hypertension) Status: Chronic Clinical Quality Measures DVT/VTE Risk/Contraindication: Risk Factor Score Per Nursin RFS Level Per Nursing on Admit: 4+=Very High ZACK ESCOBEDO DO Aug 24, 2019 07:00
--- NOTE | 2019-08-24 07:32 | Diagnostic Imaging Report ---
INDICATION: Evaluate pacemaker placement. Comparison made with prior examination from 08/23/2019. FINDINGS: There is cardiomegaly. There is some venous congestion. There is no pleural effusion or pneumothorax. Pacemaker overlies the left hemithorax. IMPRESSION: Cardiomegaly and moderate central pulmonary venous congestion. Dictated by: Dictated on workstation # [id number]
[2019-08-24] MEDS: ADVAIR HFA 115/21 MCG INHALER 8 GM IH SCH (07:43)
[2019-08-24] MEDS: meTOproloL SUCCINATE 50 MG (TOPROL XL) TAB PO SCH (07:59)
[2019-08-24] MEDS: ISOSORBIDE MONONITRATE 60 MG (IMDUR) TAB PO SCH (07:59)
[2019-08-24] MEDS: TORSEMIDE 20 MG (DEMADEX) TAB PO SCH (07:59)
[2019-08-24] MEDS: AMIODARONE 200 MG (CORDARONE) TAB PO SCH (07:59)
[2019-08-24] MEDS: ASPIRIN E.C. 81 MG (ECOTRIN) TAB PO SCH (07:59)
[2019-08-24 08:00] VITALS: BP 116/55
[2019-08-24] MEDS: SPIRONOLACTONE 25 MG (ALDACTONE) TAB PO SCH (08:00)
[2019-08-24] MEDS: PANTOPRAZOLE 40 MG (PROTONIX) TAB PO SCH (08:00)
[2019-08-24] MEDS: GABAPENTIN 600 MG (NEURONTIN) TAB PO SCH (08:00)
[2019-08-24] MEDS ORDERED: CEFU500T63 PO (09:03)
[2019-08-24] MEDS ORDERED: DILT240C86 PO (09:03)
[2019-08-24] MEDS ORDERED: AMIO200T4 PO (09:03)
--- NOTE | 2019-08-24 09:04 | Discharge Inst-Post CATH ---
Discharge Inst-CATH/EP Problems Reviewed?: Yes Post Cardiac Cath/EP D/C Inst Follow Up/Plan Appointment with Dr. MILLER's office next week <b>CARDIAC CATH/EP PROCEDURE DISCHARGE INSTRUCTIONS</b> ACTIVITY * Go Home directly and rest. * Limit activity of the leg (or wrist if it was used) for 7 days including aerobics, swimming, jogging, bicycling, etc. * Restrict stair-climbing for 7 days if possible, if not, climb up with your non-cath leg, then bring together on the same step. * Avoid lifting, pushing, pulling or excessive movement of the affected extremity for 7 days. * Customary sexual activity may be resumed after 2 days-use caution not to use a position that strains or causes pain to the affected extremity. * No driving for 24 hours. * NO SMOKING. * Avoid straining for bowel movements for 7 days. * Gentle walking on level ground is allowed. * Returning to work will depend on the type of procedure and the results. Your doctor will discuss this with you. CALL YOUR DOCTOR FOR ANY OF THE FOLLOWING: *If bleeding from the puncture site occurs- Apply gentle pressure to site with clean cloth and call your doctor or EMS. * If a knot or lump forms under the skin, increases in size, or causes pain. * If bruising appears to be worsening or moving further down your leg instead of disappearing. * Temperature above 101 F. CARE OF YOUR GROIN INCISION; * Bruising or purple discoloration of the skin near the puncture site is common. * You may shower only, no bathtub bathing for 5 days. Be careful to avoid slipping as your leg may feel stiff. * If a closure device was used on your femoral artery, please see the attached guide regarding care of the device and your leg. * Leave dressing on FOR 24 hours. CARE OF YOUR WRIST INCISION; * Bruising or purple discoloration of the skin near the puncture site is common. * You may shower. * DO NOT submerge wrist. * Leave dressing on FOR 24 hours. BOOM MILLER MD Aug 24, 2019 9:04 am
--- NOTE | 2019-08-24 09:16 | Cardiology Discharge Summary ---
Discharge Summary Hospital Course Problems Reviewed?: Yes Hospital Course Date of Admission: Aug 21, 2019 at 3:52 pm Admission Diagnosis : Family Physician/Provider: Date of Discharge: 08/24/19 Discharge Diagnosis: [ Paroxysmal atrial fibrillation Tachycardia Sinus node dysfunction Coronary artery disease Hypertension Hyperlipidemia] Hospital Course: [Paroxysmal atrial fibrillation, sinus node dysfunction with severe bradycardia secondary to medication, had history of hospitalization for syncope and bradycardia, was off all the medication that affected her and caused her syncopal episodes. And went HEMA and cardioversion, status post dual-chamber pacemaker implant, tolerated procedure well, planning to discharge home today, pacemaker interrogation showed good sensing and capture activity Sinus node dysfunction with episode of severe bradycardia secondary to medic ation, was unable to tolerate Multaq, Amiodarone, Cardizem with syncope and severe bradycardia. Status post dual-chamber pacemaker, started on Cardizem CD 240 mg daily in addition to amiodarone, we'll arrange for follow-up in one week History of chest pain, nonspecific etiology, patient reports improvement. Continue to monitor. Coronary artery disease, history of stent placement 2 to the LAD. In August 2013 cardiac cath revealed patent stents to LAD, known to have Taxus 320 mm stent in the mid LAD, proximal to that there was a stent placed in 2011 which is 312 mm Ion stent. Both are patent with 40-50 percent in-stent restenosis. Secondary branch had 90 percent stenosis at the ostium. Small artery, not amendable to intervention. Cardiac catheterization February 2015 showing patent stents in the proximal LAD with 50 percent stenosis beyond the stent and 50 percent stenosis at the midportion of the LAD small vessel disease distally, moderate 40-50 percent stenosis in the right coronary artery with multiple segment of the proximal, mid and distal portion. Cardiac catheterization March 05, 2017 revealed severe LAD stenosis beyond the previously known stent 3.0. Successful primary stenting using 308 mm ALPINE expanded to 3.5 with excellent results, balloon for in-stent restenosis also was made. Most recent cardiac catheterization done March 09, 2018 revealed patent stent with small vessel disease, no intervention required. Continue to monitor Bilateral hip pain, was seen by Dr. Willis, underwent CT A of abdominal aorta with runoff done March 31, 2019 revealing diffuse atherosclerotic changes involving bilateral lower extremity arterial systems occlusion of proximal right anterior tibial artery with reconstitution at mid calf. High-grade stenosis i nvolving the distal left SFA, significant stenosis at the tibial peroneal trunk on the left. Probable occlusion of the proximal left posterior tibial artery with reconstitution. Patient is not having any claudication pain, rest pain, ulceration or gangrene, continue to monitor [id number] score of 4, yearly risk of stroke without oral anticoagulation is 4 percent. continue on, I will start on Lovenox while in the hospital Hypertension, good control at home, continue to monitor. Renal arterial duplex done July 2015 revealed proximal right renal artery not evaluated, other segments of the left renal artery demonstrated no evidence of significant stenosis, continue to monitor History of acute renal failure, dehydration, during her hospitalization earlier in 2018. Continue to monitor renal function at this time. Hyperlipidemia, continue to monitor lipids Obstructive sleep apnea, using C Pap machine, COPD using oxygen continuously. Carotid artery stenosis, reporting that she had scan done at [facility] and she was told that she has severe stenosis in the right carotid artery and she will need surgery. Repeat carotid duplex done and are office February 2019 revealed bilateral moderate ICA stenosis, continue to monitor. Diabetes mellitus-managed by primary care physician Chronic pain, followed and managed by primary care physician Obesity, BMI is 37, discussed diet and exercise for weight loss. ] Labs and Pending Lab Test: Laboratory Tests 08/23/19 20:59: Glucometer 177H 08/24/19 03:15: White Blood Count 6.2, Red Blood Count 3.66L, Hemoglobin 10.0L, Hematocrit 33L, Mean Corpuscular Volume 90, Mean Corpuscular Hemoglobin 27, Mean Corpuscular Hemoglobin Concent 30L, Red Cell Distribution Width 14.9H, Platelet Count 109L, Mean Platelet Volume 11.4H, Sodium Level 136, Potassium Level 4.8, Chloride Level 101, Carbon Dioxide Level 27, Anion Gap 8, Blood Urea Nitrogen 21H, Creatinine 1.50H, Estimat Glomerular Filtration Rate 35, BUN/Creatinine Ratio 14, Glucose Level 210H, Calcium Level 9.0, Corrected Calcium 9.2, Phosphorus Level 2.5, Magnesium Level 1.8, Total Bilirubin 0.5, Aspartate Amino Transf (AST/SGOT) 45H, Alanine Aminotransferase (ALT/SGPT) 30, Alkaline Phosphatase 85, Total Protein 7.3, Albumin 3.8 08/24/19 06:30: Glucometer 222H Microbiology Home Meds Active Cefuroxime (Cefuroxime Axetil) 500 Mg Tablet 500 Mg PO BID Cardizem Cd (Diltiazem HCl) 240 Mg Cap.er.24h 240 Mg PO DAILY Amiodarone HCl 200 Mg Tablet 200 Mg PO UD Take 2 tablets twice daily for one week then Take one tablet twice daily Reported Advair 250-50 Diskus (Fluticasone/Salmeterol) 1 Each Blst.w.dev 2 Puff PO BID PRN Protonix (Pantoprazole Sodium) 40 Mg Tablet.dr 40 Mg PO BID WITH MEALS Sucralfate 1 Gm Tablet 1 Gm PO QIDACHS Xarelto (Rivaroxaban) 20 Mg Tablet 20 Mg PO HS Levemir Flextouch (Insulin Detemir) 100 Unit/1 Ml Insuln.pen 40 Unit SQ HS Ventolin Hfa (Albuterol Sulfate) 18 Gm Hfa.aer.ad 2 Puff PO Q6H PRN Calcium with Vit D Tablet (Calcium Citrate/Vitamin D2) 1 Each Tablet 1 Each PO DAILY Potassium Gluconate 90 Mg Tablet 90 Mg PO DAILY Aldactone (Spironolactone) 25 Mg Tablet 25 Mg PO DAILY Metoprolol Succinate 25 Mg Tab.er.24h 25 Mg PO DAILY Torsemide 10 Mg Tablet 10 Mg PO DAILY Doxazosin Mesylate 1 Mg Tablet 1 Mg PO HS HYDROcodone/APAP 10/325 TABLET (Acetaminophen/Hydrocodone Bitart) 1 Each Tablet 1 Ea PO TID PRN Iprat-Albut 0.5-3(2.5) mg/3 ml (Ipratropium/Albuterol Sulfate) 3 Ml Ampul.neb 3 Ml IH BID PRN Novolog (Insulin Aspart) 100 Unit/1 Ml Susp Unit SQ TIDAC USES PER SLIDING SCALE Trulicity (Dulaglutide) 0.75 Mg/0.5 Ml Pen.injctr 0.75 Mg SC BOWIE Mysoline (Primidone) 50 Mg Tablet 50 Mg PO HS Stool Softener-Stimulant Lax (Sennosides/Docusate Sodium) 1 Each Tablet 2 Tab PO HS Fish Oil 1,000 mg Softgel ([place]-3/Dha/Epa/Fish Oil) 1 Each Capsule 1,000 Mg PO DAILY Multi-Day Plus Minerals Tablet (Multivitamin-Min/Iron/FA/Vit K) 1 Each Tablet 1 Tab PO DAILY Cyclobenzaprine HCl 10 Mg Tablet 20 Mg PO BID PRN Atorvastatin Calcium 40 Mg Tablet 40 Mg PO HS Magnesium (Magnesium Oxide) 400 Mg Tablet 400 Mg PO HS Gabapentin 600 Mg Tablet 600 Mg PO BID Isosorbide Mononitrate ER (Isosorbide Mononitrate) 60 Mg Tab 60 Mg PO DAILY Fenofibrate (Fenofibrate,Micronized) 134 Mg Capsule 134 Mg PO HS Cinnamon (Cinnamon Bark) 500 Mg Capsule 500 Mg PO BID Assessment/Pt DC Instructions done Discharge Physical Examination Allergies: Coded Allergies: amiodarone (Verified Allergy, Intermediate, Shortness of Breath, 08/22/19) morphine (Verified Adverse Reaction, Severe, hallucination, 07/12/18) General Appearance: No Apparent Distress, WD/WN HEENT: PERRL/EOMI, TMs Normal, Normal ENT Inspection, Pharynx Normal Respiratory: Chest Non Tender, Lungs Clear, Normal Breath Sounds, No Accessory Muscle Use, No Respiratory Distress Cardiovascular: Regular Rate, Rhythm, No Edema, No Gallop, No JVD, No Murmur Gastrointestinal: Normal Bowel Sounds, No Organomegaly, No Pulsatile Mass Extremity: Normal Capillary Refill, Normal Inspection, Normal Range of Motion, Non Tender Skin: Normal Color, Warm/Dry Neurologic/Psychiatric: Alert, Oriented x3, No Motor/Sensory Deficits, Normal Mood/Affect Clinical Quality Measures DVT/VTE Risk/Contraindication: Risk Factor Score Per Nursin RFS Level Per Nursing on Admit: 4+=Very High BOOM MILLER MD Aug 24, 2019 09:16
--- NOTE | 2019-08-24 09:32 | NUR ---
Pt will be discharged home today. She will be returning to her home with as caregiver. She has home oxygen in place and states had no post hospital care needs.
--- NOTE | 2019-08-28 11:28 | Physician Query Clarification ---
PQ-CHF Specificity Admission Date: Aug 21, 2019 at 15:52 Discharge Date: Aug 24, 2019 at 14:32 The medical record reflects the following clinical scenario: History/Risk Factors: Hypertension, CHF listed in history Clinical Findings: Hypertension, AFIB Treatment: Cardizem drip, Pacemaker for AFIB Question: Can you further specify the acuity &/or type of CHF per the clinical indicators above? Please document a response in the Progress Notes or Discharge Summary. 1. Acuity: Acute, Chronic or Acute on Chronic 2. Type: Systolic, Diastolic or Systolic & Diastolic 3. Unspecified: CHF cannot be further specified regarding type or acuity 4. Other, with explanation of clinical findings 5. Clinically undetermined, no explanation for clinical findings PHYSICIAN RESPONSE Acuity: Chronic Type: Diastolic Please remember a lack of response to the above will prompt a phone page by CDI/Coding staff. In responding to this query, please exercise your independent professional judgment. The purpose of this communication is to more accurately reflect the complexity of your patients condition. The fact that a question is asked does n ot imply that any particular answer is desired or expected. Thank you for your timely response to this clarification. Requestors name: [place] THIS PHYSICIAN QUERY FORM IS A PERMANENT PART OF THE MEDICAL RECORD CARY COOPER Aug 28, 2019 11:28 BOOM MILLER MD Sep 07, 2019 15:46
== END 2019-08-24 14:32 | disposition home or self-care (01) | DRG 243 ==
LOC: ICU 15:52
PROVIDERS: ADMIT Internal Medicine Cardiovascular Disease; ATTEND Internal Medicine Cardiovascular Disease
PROC: 5A2204Z Restoration of Cardiac Rhythm, Single (ICD-10-PCS; 2019-08-22)
PROC: 0JH606Z Insertion of Pacemaker, Dual Chamber into Chest Subcutaneous Tissue and Fascia, Open Approach (ICD-10-PCS; principal; 2019-08-23)
PROC: 02H63JZ Insertion of Pacemaker Lead into Right Atrium, Percutaneous Approach (ICD-10-PCS; 2019-08-23)
PROC: 02HK3JZ Insertion of Pacemaker Lead into Right Ventricle, Percutaneous Approach (ICD-10-PCS; 2019-08-23)
DX: I48.0 Paroxysmal atrial fibrillation (principal); E66.2 Morbid (severe) obesity with alveolar hypoventilation; I13.0 Hypertensive heart and chronic kidney disease with heart failure and stage 1 through stage 4 chronic kidney disease, or unspecified chronic kidney disease; I50.32 Chronic diastolic (congestive) heart failure; I49.5 Sick sinus syndrome; I25.10 Atherosclerotic heart disease of native coronary artery without angina pectoris; N18.9 Chronic kidney disease, unspecified; J44.9 Chronic obstructive pulmonary disease, unspecified; R01.1 Cardiac murmur, unspecified; I70.203 Unspecified atherosclerosis of native arteries of extremities, bilateral legs; I65.23 Occlusion and stenosis of bilateral carotid arteries; E11.9 Type 2 diabetes mellitus without complications; E78.00 Pure hypercholesterolemia, unspecified; K21.9 Gastro-esophageal reflux disease without esophagitis; K59.09 Other constipation; M25.552 Pain in left hip; M25.551 Pain in right hip; M19.91 Primary osteoarthritis, unspecified site; F41.9 Anxiety disorder, unspecified; D64.9 Anemia, unspecified; E78.5 Hyperlipidemia, unspecified; G89.29 Other chronic pain; Z87.891 Personal history of nicotine dependence; Z95.5 Presence of coronary angioplasty implant and graft; Z99.81 Dependence on supplemental oxygen; Z86.711 Personal history of pulmonary embolism; Z68.37 Body mass index [BMI] 37.0-37.9, adult; Z87.19 Personal history of other diseases of the digestive system; Z79.4 Long term (current) use of insulin; Z20.828 Contact with and (suspected) exposure to other viral communicable diseases
CPT/HCPCS: 33208; 36415; 71045; 80048; 80053; 82962; 83540; 83735; 84100; 84443; 85025; 85027; 85610; 85730; 87081; 87635; 93005; 93312; 93320; 93325; 94640

== ENCOUNTER 2019-10-26 17:47 | Emergency (ER) | payer MEDICARE, OTHER, MEDICAID ==
[~2019-10-26] VITALS: Ht 162 cm; Wt 100.0 kg
[~2019-10-26 17:47] MED LIST changes: +CEFU500T63 PO; +DEXTROSE 50% 50 ML (IMS) SYR ONE; +DILT240C86 PO; +FLUT1DIS26 PO; +INSU100I29 SQ; +PANT40TA2 PO; +SUCR1TAB PO; -WARF5TAB PO; +WARF5TAB2 PO
[2019-10-26] MEDS ORDERED: DEXTROSE 50% 50 ML (IMS) SYR IV ONE ×2 (18:00→18:15)
[2019-10-26 18:22] LABS: BASOPHILS % (AUTO) 0 % (0-10); EOSINOPHILS # (AUTO) 0.1 10^3/uL (0.0-0.3); EOSINOPHILS % (AUTO) 1 % (0-10); HEMATOCRIT 36 % (35-52); HEMOGLOBIN 11.9 G/DL (11.5-16.0); LYMPHOCYTES # (AUTO) 1.1 X 10^3 (1.0-4.0); LYMPHOCYTES % (AUTO) 11 % (12-44); MEAN CORPUSCULAR HEMOGLOBIN 28 PG (25-34); MEAN CORPUSCULAR HGB CONC 33 G/DL (32-36); MEAN CORPUSCULAR VOLUME 83 FL (80-99); MEAN PLATELET VOLUME 10.8 FL (7.4-10.4); MONOCYTES # (AUTO) 0.5 X 10^3 (0.0-1.0); MONOCYTES % (AUTO) 5 % (0-12); NEUTROPHILS # (AUTO) 8.4 X 10^3 (1.8-7.8); NEUTROPHILS % (AUTO) 83 % (42-75); PLATELET COUNT 130 10^3/uL (130-400); RED CELL DISTRIBUTION WIDTH 13.8 % (10.0-14.5); WHITE BLOOD COUNT 10.1 10^3/uL (4.3-11.0)
[2019-10-26 18:34] LABS: ALBUMIN 3.8 GM/DL (3.2-4.5); BILIRUBIN,TOTAL 0.2 MG/DL (0.1-1.0); CALCIUM 9.4 MG/DL (8.5-10.1); CREATININE SERUM 1.26 MG/DL (0.60-1.30); POTASSIUM 4.2 MMOL/L (3.6-5.0); TOTAL PROTEIN 6.8 GM/DL (6.4-8.2)
--- NOTE | 2019-10-26 19:14 | ED General ---
General Chief Complaint: Glucose Problems Nursing Triage Note: PT BROUGHT IN BY EMS WITH A BS OF 10. SHE WAS AWAKE BUT NOT ALERT AND WAS THRASHING AROUND ON THE BED. ORAL GLUCAGON GIVEN IN ROUTE BY EMS BC NO IV ACCESS OWAS OBTAINED. Nursing Sepsis Screen: No Definite Risk History of Present Illness Date Seen by Provider: Oct 26, 2019 Time Seen by Provider: 18:00 Initial Comments Patient is a 64-year-old female with history of insulin-dependent diabetes who presents with altered mental status with acute hypoglycemic episode. Patient was found altered, she confused after falling face first. Patient has contusion to periorbital region and contused tongue. On EMS arrival, the patient's blood sugar was 20. An IV was unable to be established the patient was given a glucagon injection. Mental status improved on route to the ED. An IV was established and the patient was given 1 amp of D50. Patient more alert and coherent. She denies denies headache, facial pain and neck pain. Patient last ate af ull lunch at noon and took 30 units of NovoLog at that time reputes feeling normal throughout the afternoon. Patient takes 80 units of Levemir at 10 PM. She has not had any recent changes in insulin but did skip breakfast this morning which was different than her usual routine. No recent illnesses. No other acute symptoms or complaints. Patient is anticoagulated on Xareltol. Allergies and Home Medications Allergies Coded Allergies: amiodarone (Verified Allergy, Intermediate, Shortness of Breath, 08/22/19) morphine (Verified Adverse Reaction, Severe, hallucination, 07/12/18) Home Medications Albuterol Sulfate 18 Gm Hfa.aer.ad, 2 PUFF PO Q6H PRN for SHORTNESS OF BREATH, (Reported) Amiodarone HCl 200 Mg Tablet, 200 MG PO UD Take 2 tablets twice daily for one week then Take one tablet twice daily Prescribed by: BOOM MILLER on 08/24/19902 Atorvastatin Calcium 40 Mg Tablet, 40 MG PO HS, (Reported) Calcium Citrate/Vitamin D2 1 Each Tablet, 1 EACH PO DAILY, (Reported) Cefuroxime Axetil 500 Mg Tablet, 500 MG PO BID Prescribed by: BOOM MILLER on 08/24/19902 Cinnamon Bark 500 Mg Capsule, 500 MG PO BID, (Reported) Cyclobenzaprine HCl 10 Mg Tablet, 20 MG PO BID PRN for MUSCLE SPASMS, (Reported) Diltiazem HCl 240 Mg Cap.er.24h, 240 MG PO DAILY Prescribed by: BOOM MILLER on 08/24/19 0903 Doxazosin Mesylate 1 Mg Tablet, 1 MG PO HS, (Reported) Dulaglutide 0.75 Mg/0.5 Ml Pen.injctr, 0.75 MG SC [place], (Reported) Fenofibrate,Micronized 134 Mg Capsule, 134 MG PO HS, (Reported) Fluticasone/Salmeterol 1 Each Blst.w.dev, 2 PUFF PO BID PRN for SHORTNESS OF BREATH, (Reported) Gabapentin 600 Mg Tablet, 600 MG PO BID, (Reported) Hydrocodone Bit/Acetaminophen 1 Each Tablet, 1 EA PO TID PRN for PAIN-MODERATE (5-7), (Reported) Insulin Aspart 100 Unit/1 Ml Susp, UNIT SQ TIDAC, (Reported) USES PER SLIDING SCALE Insulin Detemir 100 Unit/1 Ml Insuln.pen, 40 UNIT SQ HS, (Reported) Ipratropium/Albuterol Sulfate 3 Ml Ampul.neb, 3 ML IH BID PRN for SHORTNESS OF BREATH, (Reported) Isosorbide Mononitrate 60 Mg Tab, 60 MG PO DAILY, (Reported) Magnesium Oxide 400 Mg Tablet, 400 MG PO HS, (Reported) Metoprolol Succinate 25 Mg Tab.er.24h, 25 MG PO DAILY, (Reported) Multivitamin-Min/Iron/FA/Vit K 1 Each Tablet, 1 TAB PO DAILY, (Reported) [place]-3/Dha/Epa/Fish Oil 1 Each Capsule, 1,000 MG PO DAILY, (Reported) Pantoprazole Sodium 40 Mg Tablet.dr, 40 MG PO BID WITH MEALS, (Reported) Potassium Gluconate 90 Mg Tablet, 90 MG PO DAILY, (Reported) Primidone 50 Mg Tablet, 50 MG PO HS, (Reported) Rivaroxaban 20 Mg Tablet, 20 MG PO HS, (Reported) Sennosides/Docusate Sodium 1 Each Tablet, 2 TAB PO HS, (Reported) Spironolactone 25 Mg Tablet, 25 MG PO DAILY, (Reported) Sucralfate 1 Gm Tablet, 1 GM PO QIDACHS, (Reported) Torsemide 10 Mg Tablet, 10 MG PO DAILY, (Reported) Patient Home Medication List Home Medication List Reviewed: Yes Review of Systems Review of Systems Constitutional: see HPI EENTM: see HPI Respiratory: see HPI Cardiovascular: see HPI Gastrointestinal: see HPI Genitourinary: no symptoms reported Musculoskeletal: see HPI Psychiatric/Neurological: See HPI Hematologic/Lymphatic: See HPI Immunological/Allergic: see HPI Past Ewbhsmd-Qkazsu-Vsxylv Hx Past Med/Social Hx: Reviewed Nursing Past Med/Soc Hx Patient Social History Alcohol Use: Denies Use Recreational Drug Use: No Smoking Status: Former Smoker Type Used: Cigarettes Former Smoker, Quit: Mar 24, 1997 2nd Hand Smoke Exposure: No Recent Foreign Travel: No Contact w/Someone Who Travel: No Recent Infectious Disease Expo: No Recent Hopitalizations: Yes Physical Abuse: No Sexual Abuse: No Mistreated: No Fear: No Immunizations Up To Date Tetanus Booster (TDap): Unknown PED Vaccines UTD: Yes Date of Pneumonia Vaccine: Mar 05, 2013 Date of Influenza Vaccine: Jan 12, 2019 Seasonal Allergies Seasonal Allergies: No Past Medical History Surgeries: Yes (neck and back surgeries) Coronary Stent, Gallbladder, Hysterectomy, Orthopedic Respiratory: Yes Pneumonia, Pulmonary Embolism, Sleep Apnea, COPD Currently Using CPAP: Yes Currently Using BIPAP: No Cardiac: Yes (stents-has loop recorder placement) Atrial Fibrillation, Coronary Artery Disease, High Cholesterol, Hypertension Neurological: No Reproductive Disorders: No Genitourinary: No Bladder Infection, Renal Failure Gastrointestinal: Yes Gastroesophageal Reflux, Gastrointestinal Bleed, Chronic Constipation, Pancreatitis Musculoskeletal: Yes (CHRONIC HIP PAIN BILATERALLY, FX NECK) Arthritis, Chronic Back Pain Endocrine: Yes Diabetes, Insulin dep, Diabetes, Non-Insulin dep HEENT: No Loss of Vision: Denies Hearing Impairment: Denies Cancer: No Psychosocial: Yes Anxiety Integumentary: No Blood Disorders: No Family Medical History Patient reports no known family medical history. Diabetes, Hypertension Physical Exam Vital Signs Vital Signs - First Documented 10/26/19 18:06 Temp 35.7 Pulse 82 Resp 18 B/P (MAP) 118/68 (85) Pulse Ox 96 O2 Delivery Room Air Capillary Refill : Less Than 3 Seconds Height, Weight, BMI Height: 5'4.00" Weight: 219lbs. 1.0oz. 99.814493hm; 38.00 BMI Method:Stated General Appearance: Anxious Eyes: Bilateral Eye PERRL, Bilateral Eye EOMI, Bilateral Eye Other (right periorbital contusion/swelling) HEENT: Normal ENT Inspection, Pharynx Normal, Other (tongue contusion) Neck: Normal Inspection, Non Tender, Supple Respiratory: Chest Non Tender Cardiovascular: Regular Rate, Rhythm Gastrointestinal: Non Tender, Soft Extremity: Non Tender Neurologic/Psychiatric: Alert, Oriented x3 Skin: Normal Color, Warm/Dry Focused Exam Sepsis Stage: Ruled Out Progress/Results/Core Measures Suspected Sepsis Recent Fever Within 48 Hours: No Infection Criteria Present: None New/Unexplained Altered Menta: No Sepsis Screen: No Definite Risk SIRS Temperature: Pulse: 82 Respiratory Rate: 18 Laboratory Tests 10/26/19 17:53: White Blood Count 10.1 Blood Pressure 118 /68 Mean: 85 Laboratory Tests 10/26/19 17:53: Creatinine 1.26, Platelet Count 130, Total Bilirubin 0.2 Results/Orders Lab Results Laboratory Tests Test 10/26/19 17:53 10/26/19 17:54 10/26/19 18:32 Range/Units White Blood Count 10.1 4.3-11.0 10^3/uL Red Blood Count 4.29 L 4.35-5.85 10^6/uL Hemoglobin 11.9 11.5-16.0 G/DL Hematocrit 36 35-52 % Mean Corpuscular Volume 83 80-99 FL Mean Corpuscular Hemoglobin 28 25-34 PG Mean Corpuscular Hemoglobin Concent 33 32-36 G/DL Red Cell Distribution Width 13.8 10.0-14.5 % Platelet Count 130 130-400 10^3/uL Mean Platelet Volume 10.8 H 7.4-10.4 FL Neutrophils (%) (Auto) 83 H 42-75 % Lymphocytes (%) (Auto) 11 L 12-44 % Monocytes (%) (Auto) 5 0-12 % Eosinophils (%) (Auto) 1 0-10 % Basophils (%) (Auto) 0 0-10 % Neutrophils # (Auto) 8.4 H 1.8-7.8 X 10^3 Lymphocytes # (Auto) 1.1 1.0-4.0 X 10^3 Monocytes # (Auto) 0.5 0.0-1.0 X 10^3 Eosinophils # (Auto) 0.1 0.0-0.3 10^3/uL Basophils # (Auto) 0.0 0.0-0.1 10^3/uL Sodium Level 137 135-145 MMOL/L Potassium Level 4.2 3.6-5.0 MMOL/L Chloride Level 102 98-107 MMOL/L Carbon Dioxide Level 22 21-32 MMOL/L Anion Gap 13 5-14 MMOL/L Blood Urea Nitrogen 29 H 7-18 MG/DL Creatinine 1.26 0.60-1.30 MG/DL Estimat Glomerular Filtration Rate 43 BUN/Creatinine Ratio 23 Glucose Level 252 H 70-105 MG/DL Calcium Level 9.4 8.5-10.1 MG/DL Corrected Calcium 9.6 8.5-10.1 MG/DL Total Bilirubin 0.2 0.1-1.0 MG/DL Aspartate Amino Transf (AST/SGOT) 75 H 5-34 U/L Alanine Aminotransferase (ALT/SGPT) 93 H 0-55 U/L Alkaline Phosphatase 106 40-136 U/L Total Protein 6.8 6.4-8.2 GM/DL Albumin 3.8 3.2-4.5 GM/DL Glucometer 221 H 219 H 70-110 MG/DL My Orders Orders - AKIRA PIERCE DO D50w (Emergency) Syringe (Dextrose 50% 5 (10/26/19 17:47) D50w (Emergency) Syringe (Dextrose 50% 5 (10/26/19 18:00) D50w (Emergency) Syringe (Dextrose 50% 5 (10/26/19 18:15) Cbc With Automated Diff (10/26/19 18:06) Comprehensive Metabolic Panel (10/26/19 18:06) Fsbs Less Than 50mg/Dl (10/26/19 18:06) Ct Head Wo (10/26/19 18:56) Medications Given in ED Current Medications Medications Dose Ordered Sig/Papa Route Start Time Stop Time Status Last Admin Dose Admin Dextrose 50 ml ONCE ONCE IV 10/26/19 18:00 10/26/19 18:02 DC 10/26/19 18:03 50 ML Vital Signs/I&O 10/26/19 18:06 Temp 35.7 Pulse 82 Resp 18 B/P (MAP) 118/68 (85) Pulse Ox 96 O2 Delivery Room Air Capillary Refill : Less Than 3 Seconds Blood Pressure Mean: 85 Point of Care Testing Finger Stick Blood Glucose: 219 Blood Glucose Action Taken: NONE Departure Communication (Admissions) CT head reviewed: D50 given with return to baseline mental status.. Patient tolerates oral intake and maintains blood sugar greater than 200. Suspect hypoglycemic episode due to a combination of mealtime carb selection and skipped breakfast. Recommendations are continued on monitoring and decreasing evening Levemir dosing. PCP follow-up as needed. Return precautions reviewed. Patient verbalizes understanding. Discharge instructions prior to departure. Impression Primary Impression: Hypoglycemia Additional Impressions: Contusion of face Head injury Disposition: HOME, SELF-CARE Condition: Stable Departure-Patient Inst. Referrals: GEE AMADO MD (PCP) Primary Care Physician Patient Instructions: Contusion (DC), Low Blood Sugar in People With Diabetes, Minor Head Injury (DC) Add. Discharge Instructions: Please continue to monitor blood sugar every hour upon returning home. Hold this evening's dose of Levemir if blood sugars are less than 100. Otherwise, decreased evening dose of Levemir by half. Resuming normal regular meals flexion and complex carb snacks between meals. Follow-up with your PCP for management further management of diabetes. Return to the ED if new or worsening symptoms. All discharge instructions reviewed with patient and/or family. Voiced understanding. AKIRA PIERCE DO Oct 26, 2019 19:14
--- NOTE | 2019-10-26 19:27 | Diagnostic Imaging Report ---
PROCEDURE: CT head without contrast. TECHNIQUE: Multiple contiguous axial images were obtained through the brain without the use of intravenous contrast. Auto Exposure Controls were utilized during the CT exam to meet ALARA standards for radiation dose reduction. INDICATION: Fall from hypoglycemia. Head injury, trauma. COMPARISON: 07/20/2019 FINDINGS: The ventricles and cortical sulci are mildly prominent, likely from generalized parenchymal volume loss. There are scattered areas of hypoattenuation in the white matter which are likely due to chronic microvascular disease. There is no midline shift or mass effect. No acute intracranial hemorrhage is seen. There is no CT evidence of acute territorial ischemia. The calvarium appears intact. IMPRESSION: No acute intracranial hemorrhage or calvarium fracture. Dictated by: Dictated on workstation # [id number]
--- OUTSIDE RECORDS SUMMARY | 2019-10-26 19:40 | XMS REPORT ---
Author Author Sarah Ruby Doctor Organization [facility] Address Unknown Phone Unavailable Care Team Providers Care Slip Cover Seamstress Name Role Phone Migration, Doctor Unavailable Unavailable PROBLEMS Type Condition ICD9-CM Code ECC56-DT Code Onset Dates Condition S tatus SNOMED Code Problem Coronary artery disease invo [place]ving [place] coronary artery of [place] heart without angina pectoris I25.10 Active 1641 [id number] Problem Hyperlipidemia, unspecified hyperlipidemia type E7 8.5 Active 21431441 Problem Paresthesias in right hand R20.2 Act chidi [id number] Problem Neck pain M54.2 Active 41227639 Problem GERD (gastroesophageal reflux disease) K21.9 Active 820272655 Problem Essential hypertension I10 Active 90814459 Problem Chronic kidney disease, unspecified CKD stage N18. 9 Active 164336784 Problem Paroxysmal atrial fibrillation I48.0 Active 110058258 Problem Obesity (BMI 30-39.9) E66.9 Active 470689375 Problem Type 2 diabetes mellitus with other specified complication E11.69 Active 20084708 Problem Type 2 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, uns pecified E11.40 Active 31909375 Problem COPD (chronic obstructive pulmonary disease) J44.9 Active 96595062 Problem intermediate frame tender 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 Active 339886995 Problem Morbid (severe) obesity due to excess calories E66 .01 Active 574783838 Problem Chronic kidney disease, stage 3 (moderate) N18.3 Active 112939924 Problem Other cirrhosis of liver K74.69 Activ e 35452891 Problem Chronic diastolic (congestive) heart failure I50.3 2 Active 534379180 ALLERGIES No Information ENCOUNTERS Encounter Location Date Diagnosis [facility] [address] [facility] [id number] [address] [place] [phone] Sep, [facility] [address] [facility] [id number] [address] [place] [phone] Sep, [facility] [address] [facility] [id number] [address] [place] [phone] 15 Aug, 2019 Type 2 diabetes mellitus wit h diabetic neuropathy, unspecified E11.40 ; Neck pain M54.2 and Other cirrhosis of liver K74.69 [facility] [address] [facility] [id number] [address] [place] [phone] 09 Aug, [address] [id number] [place] [address] 09 Aug, 2019 [facility] [address] [facility] [id number] [address] [place] [phone] Aug, [facility] [address] [facility] [id number] [address] [place] [phone] 05 Aug, 2019 [facility] [address] [facility] [id number] [address] [place] [phone] July, [facility] [address] [facility] [id number] [address] [place] [phone] July, Anemia due to acute blood lo ss D62 and Essential hypertension I10 [facility] [address] [facility] [id number] [address] [place] [phone] July, [facility] [address] [facility] [id number] [address] [place] [phone] July, [facility] [address] [facility] [id number] [address] [place] [phone] July, [address] [id number] [address] July, [address] [id number] [place] [address] Jun, [address] [id number] [address] Jun, Chronic diastolic (congestiv e) heart failure I50.32 ; COPD (chronic obstructive pulmonary disease) J44.9 ; Dyspnea R06.00 and Weakness R53.[address] [place] [address] Jun, [facility] [address] [facility] [id number] [address] [place] [phone] 14 Jun, 2019 [facility] [address] [facility] [id number] [address] [place] [phone] 04 Jun, 2019 [facility] [address] [facility] [id number] [address] [place] [phone] May, [facility] [address] [facility] [id number] [address] [place] [phone] May, Other cirrhosis of liver K74 .69 and Type 2 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, unspecified whether [facility] insulin use E11.40 [facility] [address] [facility] [id number] [address] [place] [phone] 16 May, 2019 [facility] [address] [facility] [id number] [address] [place] [phone] 12 May, 2019 Type 2 diabetes mellitus wit h other specified complication E11.69 ; Other cirrhosis of liver K74.69 ; Chronic kidney disease, stage 3 (moderate) N18.3 ; Chronic diastolic (congestive) heart failure I50.32 ; Paroxysmal atrial fibrillation I48.0 ; Morbid (severe) obesity due to excess calories E66.01 and Hyperlipidemia, unspecified hyperlipidemia type E78.5 [facility] [address] [facility] [id number] [address] [place] [phone] May, [id number] [place] [address] Apr, [facility] [address] [facility] [id number] [address] [place] [phone] Mar, [facility] [address] [facility] [id number] [address] [place] [phone] Mar, [facility] [address] [facility] [id number] [address] [place] [phone] Mar, [facility] [address] [facility] [id number] [address] [place] [phone] Mar, [facility] [address] [id number] [address] [place] [phone] Mar, [facility] [place] [address] [id number] [place] [address] Mar, [address] [id number] [place] [address] Mar, [facility] [address] [id number] [address] [place] [phone] Mar, [facility] [address] [id number] [address] [place] [phone] Mar, [facility] [address] [id number] [address] [place] [phone] Mar, [facility] [address] [id number] [address] [place] [phone] Feb, [facility] [address] [id number] [address] [place] [phone] Feb, Coronary artery disease invo [place]ving [place] coronary artery of [place] heart without angina pectoris I25.10 ; Chronic kidney disease, stage 3 (moderate) N18.3 and Morbid (severe) obesity due to excess calories E66.01 [facility] [address] [id number] [address] [place] [phone] Feb, [facility] [address] [id number] [address] [place] [phone] Feb, [facility] [address] [id number] [address] [place] [phone] Feb, [facility] [address] [id number] [address] [place] [phone] Jan, [facility] [address] [id number] [address] [place] [phone] Jan, [facility] [address] [id number] [address] [place] [phone] Jan, [facility] [address] [id number] [address] [place] [phone] Jan, [facility] [address] [id number] [address] [place] [phone] Jan, [facility] [address] [id number] [address] [place] [phone] Jan, [facility] [address] [id number] [address] [place] [phone] Dec, [facility] [place] [address] [id number] [place] [address] Dec, [facility] [address] [id number] [address] [place] [phone] Nov, [facility] [address] [id number] [address] [place] [phone] Nov, [facility] [address] [id number] [address] [place] [phone] Nov, [facility] [address] [id number] [address] [place] [phone] Nov, [facility] [place] [address] [id number] [address] Oct, [facility] [address] [id number] [address] [place] [phone] Oct, [facility] [place] [address] 340[address] [id number] [address] Sep, [facility] [address] [id number] [address] [place] [phone] Sep, [facility] [address] [id number] [address] [place] [phone] Aug, Type 2 diabetes mellitus wit h unspecified complications E11.8 ; intermediate frame tender 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 and Obesity (BMI 30-39.9) E66.9 [facility] [place] [address] [id number] [place] [address] Aug, Type 2 diabetes mellitus wit hout complications E11.[address] [id number] [place] [address] Aug, Type 2 diabetes mellitus wit hout complications E11.9 [facility] [address] [id number] [address] [place] [phone] Aug, [address] 340[id number] [address] July, intermediate current use of ins ulin Z79.4 and Type 2 diabetes mellitus with unspecified complications E11.[address] 340[address] [id number] [place] [address] July, [facility] [place] [id number] [id number] [address] [place] [phone] July, [facility] [address] [id number] [address] [place] [phone] July, Paroxysmal atrial fibrillati on I48.0 and Coronary artery disease involving [place] coronary artery of [place] heart without angina pectoris I25.10 [place] [address] [id number] [address] [place] [phone] Jun, [facility] [address] [id number] [address] [place] [phone] Jun, [facility] [address] [id number] [address] [place] [id number] May, [facility] [address] [id number] [address] [place] [phone] May, Type 2 diabetes mellitus wit h unspecified complications E11.8 ; intermediate frame tender 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 ; Leg cramps R25.2 ; Essential hypertension I10 and Routine adult health maintenance Z00.00 [facility] [address] [id number] [address] [place] [address] Apr, [facility] [address] [facility] [id number] [address] [place] [phone] 07 Apr, 2018 [facility] [address] [facility] [id number] [address] [place] [phone] Mar, Type 2 diabetes mellitus wit hout complications E11.9 [facility] [address] [facility] [id number] [address] [place] [address] Mar, Type 2 diabetes mellitus wit hout complications E11.9 [facility] [address] [facility] [id number] [address] [place] [phone] Mar, Type 2 diabetes mellitus wit hout complications E11.9 [facility] [address] [facility] [id number] [address] [place] [phone] Feb, Essential (primary) hyperten sofie I10 [facility] [address] [facility] [id number] [address] [place] [address] Feb, [facility] [address] [facility] [id number] [address] [place] [id number] Jan, Type 2 diabetes mellitus wit hout complications E11.9 [facility] [address] [facility] [id number] [address] [place] [phone] 30 Dec, 2017 [facility] [address] [facility] [id number] [address] [place] [phone] Dec, Type 2 diabetes mellitus wit h diabetic neuropathy, unspecified E11.40 ; intermediate frame tender 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 and Chronic kidney disease, unspecified CKD stage N18.9 [facility] [address] [facility] [id number] [address] [place] [phone] 15 Dec, 2017 Type 2 diabetes mellitus wit hout complications E11.9 [facility] [address] [facility] [id number] [address] [place] [phone] Dec, [facility] [address] [facility] [id number] [address] [place] [phone] 09 Dec, 2017 Type 2 diabetes mellitus wit hout complications E11.9 [facility] [address] [facility] [id number] [address] [place] [address] Dec, [facility] [address] [facility] [id number] [address] [place] [phone] Oct, [facility] [address] [facility] [id number] [address] [place] [phone] Sep, [facility] [address] [facility] [id number] [address] [place] [phone] Aug, [facility] [address] [facility] [id number] [address] [place] [address] Aug, Exposure to hepatitis C Z20. 5 and Routine adult health maintenance Z00.00 [facility] [address] [facility] [id number] [address] [place] [address] Aug, Medicare annual wellness vis it, initial Z00.00 ; Coronary artery disease involving [place] coronary artery of [place] heart without angina pectoris I25.10 ; Hyperlipidemia, unspecified hyperlipidemia type E78.5 ; Essential hypertension I10 ; GERD (gastroesophageal reflux disease) K21.9 ; Routine adult health maintenance Z00.00 ; Encounter for immunization Z23 ; Type 2 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, unspecified E11.40 and intermediate 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 [facility] [address] [facility] [id number] [address] [place] [address] Aug, Exposure to hepatitis C Z20. 5 [facility] [address] [facility] [id number] [address] [place] [address] July, Type 2 diabetes mellitus wit hout complications E11.9 and Type 2 diabetes mellitus without complications E11.9 [facility] [address] [facility] [id number] [address] [place] [address] July, [facility] [address] [facility] [id number] [address] [place] [phone] July, [facility] [address] [facility] [id number] [address] [place] [id number] Mar, Type 2 diabetes mellitus wit hout complications E11.9 [facility] [address] [id number] [address] [place] [phone] Mar, [facility] [address] [id number] [address] [place] [phone] Feb, Type 2 diabetes mellitus wit hout complications E11.9 [facility] [address] [facility] [id number] [address] [place] [phone] Jan, Type 2 diabetes mellitus wit hout complications E11.9 [facility] [address] [id number] [address] [place] [phone] Jan, Type 2 diabetes mellitus wit hout complications E11.9 [facility] [address] [id number] [address] [place] [phone] Nov, [facility] [address] [facility] [id number] [address] [place] [id number] Oct, Type 2 diabetes mellitus wit hout complications E11.9 [facility] [address] [id number] [address] [place] [phone] Oct, Type 2 diabetes mellitus wit hout complications E11.9 ; Essential hypertension I10 and Neck pain M54.2 [facility] [address] [id number] [address] [place] [phone] Sep, [facility] [address] [id number] [address] [place] [address] Aug, Type 2 diabetes mellitus wit hout complications E11.9 [facility] [address] [id number] [address] [place] [address] Jun, Type 2 diabetes mellitus wit hout complications E11.9 ; Neck pain M54.2 and Essential hypertension I10 [facility] [address] [id number] [address] [place] [address] Jun, [facility] [address] [facility] [id number] [address] [place] [phone] Jun, [facility] [address] [id number] [address] [place] [id number] Jun, GERD (gastroesophageal reflu x disease) K21.9 and Type 2 diabetes mellitus without complications E11.9 [facility] [address] [id number] [address] [place] [phone] 10 Mar, 2016 Paresthesias in right hand R 20.2 [facility] [address] [id number] [address] [place] [address] Feb, Type 2 diabetes mellitus wit hout complications E11.9 [facility] [address] [id number] [address] [place] [id number] Feb, Encounter for dental examina tion Z01.20 [facility] [address] [id number] [address] [place] [phone] Feb, Type 2 diabetes mellitus wit hout complications E11.9 and Neck pain M54.2 [facility] [address] [id number] [address] [place] [id number] Feb, Type 2 diabetes mellitus wit hout complications E11.9 [facility] [address] [id number] [address] [place] [id number] Jan, Dental examination Z01.20 [facility] [address] [id number] [address] [place] [phone] Jan, [facility] [address] [id number] [address] [place] [phone] Jan, [facility] [address] [id number] [address] [place] [id number] Dec, Dental caries K02.9 [facility] [address] [id number] [address] [place] [phone] Nov, [facility] [address] [id number] [address] [place] [phone] Nov, [facility] [address] [id number] [address] [place] [address] Oct, Type 2 diabetes mellitus wit hout complications E11.9 ; Neck pain M54.2 and Essential hypertension I10 [facility] [address] [id number] [address] [place] [id number] Oct, [facility] [address] [id number] [address] [place] [id number] Oct, Dental examination Z01.20 [facility] [address] [id number] [address] [place] [id number] Sep, [facility] [address] [id number] [address] [place] [phone] Sep, [facility] [address] [id number] [address] [place] [id number] Aug, Essential (primary) hyperten sofie I10 [facility] [address] [facility] [id number] [address] [place] [phone] Aug, [facility] [address] [facility] [id number] [address] [place] [address] Aug, [facility] [address] [facility] [id number] [address] [place] [id number] July, Essential (primary) hyperten sofie I10 [facility] [address] [facility] [id number] [address] [place] [phone] July, Essential (primary) hyperten sofie I10 and Type 2 diabetes mellitus without complications E11.9 [facility] [address] [facility] [id number] [address] [place] [phone] July, [facility] [address] [facility] [id number] [address] [place] [phone] Jun, GERD (gastroesophageal reflu x disease) K21.9 [facility] [address] [facility] [id number] [address] [place] [phone] Jun, GERD (gastroesophageal reflu x disease) K21.9 [facility] [address] [facility] [id number] [address] [place] [phone] Jun, [facility] [address] [facility] [id number] [address] [place] [address] Jun, Neuropathy G62.9 [facility] [id number] [place] [address] May, Essential (primary) hyperten sofie I10 [facility] [address] [facility] [id number] [address] [place] [address] May, Bronchitis J40 [facility] [address] [address] 15 May, 2015 Type 2 diabetes mellitus wit hout complications E11.9 and Essential (primary) hypertension I10 [facility] [address] [phone] May, [facility] [address] [address] May, GERD (gastroesophageal reflu x disease) K21.9 [facility] [address] [place] [id number] [place] [id number] Apr, Other and unspecified hyperl ipidemia 272.4 ; Unspecified essential hypertension 401.9 ; Type 2 diabetes mellitus without complications E11.9 ; Neck pain M54.2 and Paresthesias in right hand R20.2 [facility] [id number] [place] [id number] 11 Apr, 2015 [facility] [id number] [place] [id number] Apr, Neuropathy G62.9 [facility] [address] [id number] [address] [place] [id number] Mar, [facility] [address] [address] Feb, [facility] [id number] [place] [id number] Jan, [facility] [id number] [place] [address] Dec, [facility] [address] [facility] [id number] [place] [address] [id number] Dec, Type 2 diabetes mellitus wit hout complications E11.9 ; Encounter for immunization Z23 and Neck pain M54.2 [facility] [address] [facility] [id number] [address] [place] [phone] Dec, [facility] [address] [facility] [id number] [address] [place] [phone] Nov, [facility] [address] [facility] [id number] [address] [place] [phone] Nov, [facility] [address] [place] [id number] [place] [address] Oct, [facility] [id number] [place] [id number] Oct, [facility] [address] [id number] [address] [place] [phone] Sep, [facility] [id number] [place] [phone] Sep, Coronary atherosclerosis of unspecified type of vessel, [place] or graft 414.00 ; Diabetes mellitus without mention of complication, type II or unspecified type, not stated as uncontrolled 250.00 ; Hyperlipidemia 272.4 and HTN (hypertension) 401.9 [facility] [address] [id number] [address] [place] [id number] Aug, [facility] [address] [id number] [address] [place] [phone] July, [facility] [id number] [place] [phone] Jun, [facility] [address] [id number] [address] [place] [phone] Jun, [facility] [id number] [place] [phone] May, [facility] [address] [id number] [address] [place] [address], [place] [address] May, [facility] [address] [id number] [address] [place] [address], [place] [address] May, [facility] [address] [id number] [address] [place] [address], [place] [address] May, [facility] [address] [id number] [address] [place] [address], [place] [address] Apr, 2014 [facility] [address] [id number] [address] [place] [address], [place] [address] Apr, [facility] [address] [id number] [address] [place] [address], [place] [address] Apr, [facility] [address] [id number] [address] [place] [address], [place] [address] Apr, [facility] [address] [id number] [address] [place] [address], [place] [address] Apr, [facility] [address] [id number] [address] [place] [address], [place] [address] Apr, [facility] [address] [id number] [address] [place] [address], [place] [address] Apr, [facility] [address] [id number] [address] [place] [address], [place] [address] Apr, [facility] [address] [id number] [address] [place] [id number] Mar, [facility] [address] [id number] [address] [place] [phone] Mar, [facility] [address] [id number] [address] [place] [phone] Mar, [facility] [address] [id number] [address] [place] [phone] Mar, [facility] [address] [id number] [address] [place] [address], [place] [address] Mar, [facility] [address] [id number] [address] [place] [address], [place] [address] Mar, [facility] [address] [id number] [address] [place] [address], [place] [address] Mar, [facility] [address] [id number] [address] [place] [address], [place] [address] Mar, [facility] [address] [id number] [address] [place] [address], [place] [address] Feb, [facility] [address] [id number] [address] [place] [address], [place] [address] Feb, [facility] [address] [id number] [address] [place] [address], [place] [address] Feb, [facility] [address] [id number] [address] [place] [address], [place] [address] Feb, [facility] [address] [id number] [address] [place] [address], [place] [address] Feb, [facility] [address] [id number] [address] [place] [address], [place] [address] Feb, [facility] [address] [id number] [address] [place] [address], [place] [address] Feb, [facility] [address] [id number] [address] [place] [address], [place] [address] Feb, [facility] [address] [id number] [address] [place] [address], [place] [address] Feb, [facility] [address] [id number] [address] [place] [address], [place] [address] Feb, [facility] [address] [id number] [address] [place] [address], [place] [address] Jan, [facility] [address] [id number] [address] [place] [address], [place] [address] Jan, [facility] [address] [id number] [address] [place] [address], [place] [address] Dec, [facility] [address] [id number] [address] [place] [address], [place] [address] Dec, [facility] [address] [id number] [address] [place] [address], [place] [address] Dec, [facility] [address] [id number] [address] [place] [address], [place] [address] Dec, [facility] [address] [id number] [address] [place] [address], [place] [address] Nov, [facility] [address] [id number] [address] [place] [address], [place] [address] Nov, [facility] [address] [id number] [address] [place] [address], [place] [address] Nov, [facility] [address] [id number] [address] [place] [address], [place] [address] Nov, [facility] [address] [id number] [address] [place] [address], [place] [address] Oct, [facility] [address] [id number] [address] [place] [address], [place] [address] Oct, [facility] [address] [id number] [address] [place] [address], [place] [address] Oct, [facility] [address] [id number] [address] [place] [address], [place] [address] Oct, [facility] [address] [id number] [address] [place] [address], [place] [address] Oct, [facility] [address] [id number] [address] [place] [address], [place] [address] Sep, [facility] [address] [id number] [address] [place] [address], [place] [address] Sep, [facility] [address] [id number] [address] [place] [address], [place] [address] Sep, [facility] [address] [id number] [address] [place] [address], [place] [address] Sep, [facility] [address] [id number] [address] [place] [address], [place] [address] Sep, [facility] [address] [id number] [address] [place] [address], [place] [address] Sep, [facility] [address] [id number] [address] [place] [address], [place] [address] Aug, [facility] [address] [id number] [address] [place] [address], [place] [address] Aug, [facility] [address] [id number] [address] [place] [address], [place] [address] Aug, [facility] [address] [id number] [address] [place] [address], [place] [address] Aug, [facility] [address] [id number] [address] [place] [address], [place] [address] Aug, [facility] [address] [id number] [address] [place] [address], [place] [address] Aug, [facility] [address] [id number] [address] [place] [address], [place] [address] July, [facility] [address] [id number] [address] [place] [address], [place] [address] July, [facility] [address] [id number] [address] [place] [address], [place] [address] Jun, [facility] [address] [id number] [address] [place] [address], [place] [address] Jun, [facility] [address] [id number] [address] [place] [address], [place] [address] May, [facility] [address] [id number] [address] [place] [address], [place] [address] May, [facility] [address] [id number] [address] [place] [address], [place] [address] 07 May, 2013 [facility] [address] [id number] [address] [place] [address], [place] [address] May, [facility] [address] [id number] [address] [place] [address], [place] [address] Apr, [facility] [address] [id number] [address] [place] [address], [place] [address] Apr, [facility] [address] [id number] [address] [place] [address], [place] [address] Apr, [facility] [address] [id number] [address] [place] [address], [place] [address] Apr, [facility] [address] [id number] [address] [place] [address], [place] [address] Apr, [facility] [address] [id number] [address] [place] [address], [place] [address] Apr, [facility] [address] [id number] [address] [place] [address], [place] [address] Feb, [facility] [address] [id number] [address] [place] [address], [place] [address] Feb, [facility] [address] [id number] [address] [place] [address], [place] [address] Feb, [facility] [address] [id number] [address] [place] [address], [place] [address] Feb, [facility] [address] [id number] [address] [place] [address], [place] [address] Jan, [facility] [address] [id number] [address] [place] [address], [place] [address] Jan, [facility] [address] [id number] [address] [place] [address], [place] [address] 14 Dec, 2012 [facility] [address] [id number] [address] [place] [address], [place] [address] 14 Dec, 2012 [facility] [address] [id number] [address] [place] [address], [place] [address] 14 Dec, 2012 [facility] [address] [id number] [address] [place] [address], [place] [address] Dec, [facility] [address] [id number] [address] [place] [address], [place] [address] Oct, [facility] [address] [id number] [address] [place] [id number] Oct, [facility] [address] [id number] [address] [place] [id number] Oct, [facility] [address] [id number] [address] [place] [address], [place] [address] Oct, [facility] [address] [id number] [address] [place] [address], [place] [address] Sep, [facility] [address] [id number] [address] [place] [address], [place] [address] Sep, [facility] [address] [id number] [address] [place] [address], [place] [address] Aug, [facility] [address] [id number] [address] [place] [address], [place] [address] Aug, [facility] [address] [id number] [address] [place] [address], [place] [address] Aug, [facility] [address] [id number] [address] [place] [address], [place] [address] Aug, [facility] [address] [id number] [address] [place] [address], [place] [address] July, [facility] [address] [id number] [address] [place] [address], [place] [address] 16 Jun, 2012 [facility] [address] [id number] [address] [place] [address] May, [facility] [address] [id number] [address] [place] [address], [place] [address] 05 May, 2012 [facility] [address] [id number] [address] [place] [address], [place] [address] May, [facility] [address] [id number] [address] [place] [address], [place] [address] 05 May, 2012 [facility] [address] [id number] [address] [place] [address], [place] [address] May, [facility] [address] [id number] [address] [place] [address], [place] [address] Apr, [facility] [address] [id number] [address] [place] [address], [place] [address] Apr, [facility] [address] [id number] [address] [place] [address], [place] [address] Apr, [facility] [address] [id number] [address] [place] [address], [place] [address] Apr, [facility] [address] [id number] [address] [place] [address], [place] [address] Mar, [facility] [address] [id number] [address] [place] [address], [place] [address] Mar, [facility] [address] [id number] [address] [place] [address], [place] [address] Mar, [facility] [address] [id number] [address] [place] [address], [place] [address] Mar, [facility] [address] [id number] [address] [place] [address], [place] [address] Jan, [facility] [address] [id number] [address] [place] [address], [place] [address] Jan, [facility] [address] [id number] [address] [place] [address], [place] [address] 15 Jan, 2012 [facility] [address] [id number] [address] [place] [address] Jan, [facility] [address] [id number] [address] [place] [address] Jan, [facility] [address] [id number] [address] [place] [address] Jan, [facility] [address] [id number] [address] [place] [address] Jan, [facility] [address] [id number] [address] [place] [address] Jan, [facility] [address] [id number] [address] [place] [address] Jan, [facility] [address] [id number] [address] [place] [address] Jan, [facility] [address] [id number] [address] [place] [address] Dec, [facility] [address] [id number] [address] [place] [address] Dec, [facility] [address] [id number] [address] [place] [id number] Dec, [facility] [address] [id number] [address] [place] [address] Nov, [facility] [address] [id number] [address] [place] [id number] Nov, [facility] [address] [id number] [address] [place] [address] Nov, [facility] [address] [id number] [address] [place] [address] Nov, [facility] [address] [id number] [address] [place] [id number] Oct, [facility] [address] [id number] [address] [place] [id number] Oct, IMMUNIZATIONS No Known Immunizations SOCIAL HISTORY [...] egd 01/2019 Hospitalization History surgeries Hospitalization History [facility] 06/2018 Hospitalization History [facility] 07/2018 [facility] - heart attack and rehab -03/02/2019
--- OUTSIDE RECORDS SUMMARY | 2019-10-26 19:40 | XMS REPORT ---
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 Active 840779382 Problem Morbid (severe) obesity due to excess calories E66 .01 Active 527839025 Problem Chronic kidney disease, stage 3 (moderate) N18.3 Active 652504893 Problem Other cirrhosis of liver K74.69 Activ e 87725555 Problem Chronic diastolic (congestive) heart failure I50.3 2 Active [id number] ALLERGIES No Information ENCOUNTERS Encounter Location Date Diagnosis [facility] [address] [facility] [id number] [address] [place] [address] Sep, [facility] [address] [facility] [id number] [address] [place] [address] Sep, [facility] [address] [facility] [id number] [address] [place] [address] 15 Aug, 2019 Type 2 diabetes mellitus wit h diabetic neuropathy, unspecified E11.40 ; Neck pain M54.2 and Other cirrhosis of liver K74.69 [facility] [address] [facility] [id number] [address] [place] [address] 09 Aug, [address] [id number] [address] Aug, [facility] [address] [facility] [id number] [address] [place] [address] Aug, [facility] [address] [facility] [id number] [address] [place] [address] Aug, [facility] [address] [facility] [id number] [address] [place] [address] July, [facility] [address] [facility] [id number] [address] [place] [address] July, Anemia due to acute blood lo ss D62 and Essential hypertension I10 [facility] [address] [facility] [id number] [address] [place] [address] July, [facility] [address] [facility] [id number] [address] [place] [address] July, [facility] [address] [facility] [id number] [address] [place] [address] July, [address] [id number], [place] [address] July, [address] [id number], [place] [address] Jun, [address] [id number], [place] [address] Jun, Chronic diastolic (congestiv e) heart failure I50.32 ; COPD (chronic obstructive pulmonary disease) J44.9 ; Dyspnea R06.00 and Weakness R53.[address] [place] [address] Jun, [facility] [address] [facility] [id number] [address] [place] [address] 14 Jun, 2019 [facility] [address] [facility] [id number] [address] [place] [address] Jun, [facility] [address] [facility] [id number] [address] [place] [address] May, [facility] [address] [facility] [id number] [address] [place] [address] May, Other cirrhosis of liver K74 .69 and Type 2 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, unspecified whether detention insulin use E11.40 [facility] [address] [facility] [id number] [address] [place] [address] 16 May, 2019 [facility] [address] [facility] [id number] [address] [place] [address] May, Type 2 diabetes mellitus wit h other specified complication E11.69 ; Other cirrhosis of liver K74.69 ; Chronic kidney disease, stage 3 (moderate) N18.3 ; Chronic diastolic (congestive) heart failure I50.32 ; Paroxysmal atrial fibrillation I48.0 ; Morbid (severe) obesity due to excess calories E66.01 and Hyperlipidemia, unspecified hyperlipidemia type E78.5 [facility] [address] [facility] [id number] [address] [place] [address] May, [address] [id number], [place] [address] Apr, [facility] [address] [facility] [id number] [address] [place] [address] Mar, [facility] [address] [facility] [id number] [address] [place] [address] Mar, [facility] [address] [facility] [id number] [address] [place] [address] Mar, [facility] [address] [id number] [address] [place] [id number] 08 Mar, 2019 [facility] [address] [id number] [address] [place] [address] Mar, [facility] [place] [address] [id number] [place] [address] Mar, [address] [id number] [place] [address] Mar, [facility] [address] [id number] [address] [place] [address] Mar, [facility] [address] [id number] [address] [place] [address] Mar, [facility] [address] [id number] [address] [place] [address] Mar, [facility] [address] [id number] [address] [place] [address] Feb, [facility] [address] [id number] [address] [place] [address] Feb, Coronary artery disease invo lving tuscarora coronary artery of tuscarora heart without angina pectoris I25.10 ; Chronic kidney disease, stage 3 (moderate) N18.3 and Morbid (severe) obesity due to excess calories E66.01 [facility] [address] [id number] [address] [place] [address] Feb, [facility] [address] [id number] [address] [place] [address] Feb, [facility] [address] [id number] [address] [place] [address] Feb, [facility] [address] [id number] [address] [place] [address] Jan, [facility] [address] [id number] [address] [place] [address] Jan, [facility] [address] [id number] [address] [place] [address] Jan, [facility] [address] [id number] [address] [place] [address] Jan, [facility] [address] [id number] [address] [place] [address] Jan, [facility] [address] [id number] [address] [place] [address] Jan, [facility] [address] [id number] [address] [place] [address] Dec, [facility] [place] [address] [id number], [place] [address] Dec, [facility] [address] [id number] [address] [place] [address] Nov, [facility] [address] [id number] [address] [place] [address] Nov, [facility] [address] [id number] [address] [place] [address] Nov, [facility] [address] [id number] [address] [place] [address] Nov, [facility] [place] [address] [id number], [place] [address] Oct, [facility] [address] [id number] [address] [place] [address] Oct, [facility] [place] [address] [id number], [place] [address] Sep, [facility] [address] [id number] [address] [place] [address] Sep, [facility] [address] [facility] [id number] [address] [place] [address] Aug, Type 2 diabetes mellitus wit h unspecified complications E11.8 ; [facility] 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 and Obesity (BMI 30-39.9) E66.9 [facility] [address] [id number] [place] [address] 10 Aug, 2018 Type 2 diabetes mellitus wit hout complications E11.[address] [id number] [place] [address] 07 Aug, 2018 Type 2 diabetes mellitus wit hout complications E11.9 [place] [address] [facility] [id number] [address] [place] [address] Aug, [address] [id number] [place] [address] July, [facility] current use of ins ulin Z79.4 and Type 2 diabetes mellitus with unspecified complications E11.[address] [id number] [place] [address] July, Screening mammogram, encount er for Z12.31 [place] [address] [facility] [id number] [address] [place] [address] July, [place] [address] [facility] [id number] [address] [place] [address] July, Paroxysmal atrial fibrillati on I48.0 and Coronary artery disease involving tuscarora coronary artery of tuscarora heart without angina pectoris I25.10 [place] [address] [facility] [id number] [address] [place] [address] Jun, [facility] [address] [facility] [id number] [address] [place] [address] Jun, [facility] [address] [facility] [id number] [address] [place] [address] May, [place] [address] [facility] [id number] [address] [place] [address] May, Type 2 diabetes mellitus wit h unspecified complications E11.8 ; [facility] 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 ; Leg cramps R25.2 ; Essential hypertension I10 and Routine adult health maintenance Z00.00 [facility] [address] [facility] [id number] [address] [place] [address] 07 Apr, 2018 [facility] [address] [facility] [id number] [address] [place] [address] 07 Apr, 2018 [facility] [address] [facility] [id number] [address] [place] [address] Mar, Type 2 diabetes mellitus wit hout complications E11.9 [facility] [address] [facility] [id number] [address] [place] [address] Mar, Type 2 diabetes mellitus wit hout complications E11.9 [facility] [address] [facility] [id number] [address] [place] [address] Mar, Type 2 diabetes mellitus wit hout complications E11.9 [facility] [address] [facility] [id number] [address] [place] [address] Feb, Essential (primary) hyperten sofie I10 [facility] [address] [facility] [id number] [address] [place] [address] Feb, [facility] [address] [facility] [id number] [address] [place] [address] Jan, Type 2 diabetes mellitus wit hout complications E11.9 [facility] [address] [facility] [id number] [address] [place] [address] Dec, [facility] [address] [facility] [id number] [address] [place] [address] Dec, Type 2 diabetes mellitus wit h diabetic neuropathy, unspecified E11.40 ; [facility] 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 and Chronic kidney disease, unspecified CKD stage N18.9 [facility] [address] [facility] [id number] [address] [place] [address] Dec, Type 2 diabetes mellitus wit hout complications E11.9 [facility] [address] [facility] [id number] [address] [place] [address] Dec, [facility] [address] [facility] [id number] [address] [place] [address] Dec, Type 2 diabetes mellitus wit hout complications E11.9 [facility] [address] [facility] [id number] [address] [place] [address] Dec, [facility] [address] [facility] [id number] [address] [place] [address] Oct, [facility] [address] [facility] [id number] [address] [place] [address] Sep, [facility] [address] [facility] [id number] [address] [place] [address] Aug, [facility] [address] [place] [id number] [address] [place] [address] Aug, Exposure to hepatitis C Z20. 5 and Routine adult health maintenance Z00.00 [place] [address] [place] [id number] [address] [place] [address] Aug, Exposure to hepatitis C Z20. 5 [facility] [id number] [place] [address] Aug, Medicare annual wellness vis it, initial Z00.00 ; Coronary artery disease involving tuscarora coronary artery of tuscarora heart without angina pectoris I25.10 ; Hyperlipidemia, unspecified hyperlipidemia type E78.5 ; Essential hypertension I10 ; GERD (gastroesophageal reflux disease) K21.9 ; Routine adult health maintenance Z00.00 ; Encounter for immunization Z23 ; Type 2 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, unspecified E11.40 and [facility] 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 [facility] [address] [facility] [id number] [address] [place] [address] July, Type 2 diabetes mellitus wit hout complications E11.9 and Type 2 diabetes mellitus without complications E11.9 [facility] [address] [facility] [id number] [address] [place] [address] July, [facility] [address] [place] [id number] [address] [place] [address] July, [facility] [address] [place] [id number] [address] [place] [address] Mar, Type 2 diabetes mellitus wit hout complications E11.9 [facility] [address] [id number] [address] [place] [address] Mar, [facility] [address] [id number] [address] [place] [address] Feb, Type 2 diabetes mellitus wit hout complications E11.9 [facility] [address] [id number] [address] [place] [address] Jan, Type 2 diabetes mellitus wit hout complications E11.9 [facility] [address] [id number] [address] [place] [address] Jan, Type 2 diabetes mellitus wit hout complications E11.9 [facility] [address] [id number] [address] [place] [address] Nov, [facility] [address] [id number] [address] [place] [address] Oct, Type 2 diabetes mellitus wit hout complications E11.9 [facility] [address] [id number] [address] [place] [address] Oct, Type 2 diabetes mellitus wit hout complications E11.9 ; Essential hypertension I10 and Neck pain M54.2 [facility] [address] [id number] [address] [place] [address] Sep, [facility] [address] [id number] [address] [place] [address] Aug, Type 2 diabetes mellitus wit hout complications E11.9 [facility] [address] [id number] [address] [place] [address] Jun, Type 2 diabetes mellitus wit hout complications E11.9 ; Neck pain M54.2 and Essential hypertension I10 [facility] [address] [id number] [address] [place] [address] Jun, [facility] [address] [id number] [address] [place] [address] 14 Jun, 2016 [facility] [address] [id number] [address] [place] [address] 10 Jun, 2016 GERD (gastroesophageal reflu x disease) K21.9 and Type 2 diabetes mellitus without complications E11.9 [facility] [address] [id number] [address] [place] [address] 10 Mar, 2016 Paresthesias in right hand R 20.2 [facility] [address] [id number] [address] [place] [address] 26 Feb, 2016 Type 2 diabetes mellitus wit hout complications E11.9 [facility] [address] [id number] [address] [place] [id number] Feb, Encounter for dental examina tion Z01.20 [facility] [address] [id number] [address] [place] [address] 09 Feb, 2016 Type 2 diabetes mellitus wit hout complications E11.9 and Neck pain M54.2 [facility] [address] [id number] [address] [place] [address] 02 Feb, 2016 Type 2 diabetes mellitus wit hout complications E11.9 [facility] [address] [id number] [address] [place] [id number] Jan, Dental examination Z01.20 [facility] [address] [id number] [address] [place] [address] Jan, [facility] [address] [id number] [address] [place] [address] Jan, [facility] [address] [id number] [address] [place] [id number] Dec, Dental caries K02.9 [facility] [address] [id number] [address] [place] [id number] 30 Nov, 2015 [facility] [address] [id number] [address] [place] [address] Nov, [facility] [address] [id number] [address] [place] [address] Oct, Type 2 diabetes mellitus wit hout complications E11.9 ; Neck pain M54.2 and Essential hypertension I10 [facility] [address] [facility] [id number] [address] [place] [address] Oct, [facility] [address] [id number] [address] [place] [id number] Oct, Dental examination Z01.20 [facility] [address] [facility] [id number] [address] [place] [address] Sep, [facility] [address] [facility] [id number] [address] [place] [address] Sep, [facility] [address] [facility] [id number] [address] [place] [address] Aug, Essential (primary) hyperten sofie I10 [facility] [address] [facility] [id number] [address] [place] [address] Aug, [facility] [address] [facility] [id number] [address] [place] [address] Aug, [facility] [address] [facility] [id number] [address] [place] [address] July, Essential (primary) hyperten sofie I10 [facility] [address] [facility] [id number] [address] [place] [address] July, Essential (primary) hyperten sofie I10 and Type 2 diabetes mellitus without complications E11.9 [facility] [address] [facility] [id number] [address] [place] [address] July, [facility] [address] [facility] [id number] [address] [place] [address] 14 Jun, 2015 GERD (gastroesophageal reflu x disease) K21.9 [facility] [address] [facility] [id number] [address] [place] [phone] Jun, GERD (gastroesophageal reflu x disease) K21.9 [facility] [id number] [place] [address] Jun, [facility] [address] [address] Jun, Neuropathy G62.9 [facility] [address] [place] [id number] [address] [place] [address] May, Essential (primary) hyperten sofie I10 [facility] [address] [facility] [id number] [address] [place] [address] May, Bronchitis J40 [facility] [address] [address] 15 May, 2015 Type 2 diabetes mellitus wit hout complications E11.9 and Essential (primary) hypertension I10 [facility] [address] [address] May, [facility] [address] [address] May, GERD (gastroesophageal reflu x disease) K21.9 [facility] [address] [address] Apr, Other and unspecified hyperl ipidemia 272.4 ; Unspecified essential hypertension 401.9 ; Type 2 diabetes mellitus without complications E11.9 ; Neck pain M54.2 and Paresthesias in right hand R20.2 [facility] [address] [address] Apr, [facility] [address] [address] Apr, Neuropathy G62.9 [facility] [address] [id number] Mar, [facility] [address] [address] Feb, [facility] [address] [address] Jan, [facility] [address] [facility] [id number] [address] [place] [address] Dec, [facility] [address] [facility] [id number] [address] [place] [address] Dec, Type 2 diabetes mellitus wit hout complications E11.9 ; Encounter for immunization Z23 and Neck pain M54.2 [facility] [address] [facility] [id number] [address] [place] [id number] Dec, [facility] [address] [facility] [id number] [address] [place] [id number] Nov, [facility] [address] [facility] [id number] [address] [place] [id number] Nov, [facility] [address] [place] [id number] [address] [place] [id number] Oct, [facility] [address] [place] [id number] [address] [place] [id number] Oct, [facility] [address] [facility] [id number] [address] [place] [id number] Sep, [facility] [address] [place] [id number] [address] [place] [id number] Sep, Coronary atherosclerosis of unspecified type of vessel, tuscarora or graft 414.00 ; Diabetes mellitus without mention of complication, type II or unspecified type, not stated as uncontrolled 250.00 ; Hyperlipidemia 272.4 and HTN (hypertension) 401.9 [facility] [address] [facility] [id number] [address] [place] [address] Aug, [facility] [address] [place] [id number] [address] [place] [address] July, [facility] [address] [facility] [id number] [address] [place] [address] Jun, [facility] [address] [id number] [address] [place] [address] Jun, [facility] [address] [id number] [address] [place] [address], [place] [address] May, [facility] [address] [id number] [address] [place] [address], [place] [address] May, [facility] [address] [id number] [address] [place] [address], [place] [address] May, [facility] [address] [id number] [address] [place] [address], [place] [address] May, [facility] [address] [id number] [address] [place] [address], [place] [address] Apr, [facility] [address] [id number] [address] [place] [address], [place] [address] Apr, [facility] [address] [id number] [address] [place] [address], [place] [address] Apr, [facility] [address] [id number] [address] [place] [address], [place] [address] Apr, [facility] [address] [id number] [address] [place] [address], [place] [address] Apr, [facility] [address] [id number] [address] [place] [address], [place] [address] Apr, [facility] [address] [id number] [address] [place] [address], [place] [address] Apr, [facility] [address] [id number] [address] [place] [address], [place] [address] Apr, [facility] [address] [id number] [address] [place] [address], [place] [address] Mar, [facility] [address] [id number] [address] [place] [address], [place] [address] Mar, [facility] [address] [id number] [address] [place] [address], [place] [address] Mar, [facility] [address] [id number] [address] [place] [address], [place] [address] Mar, [facility] [address] [id number] [address] [place] [address], [place] [address] Mar, [facility] [address] [id number] [address] [place] [address], [place] [address] Mar, [facility] [address] [id number] [address] [place] [address], [place] [address] Mar, [facility] [address] [id number] [address] [place] [address], [place] [address] Mar, [facility] [address] [id number] [address] [place] [address], [place] [address] Feb, [facility] [address] [id number] [address] [place] [address], [place] [address] Feb, [facility] [address] [id number] [address] [place] [address], [place] [address] Feb, [facility] [address] [id number] [address] [place] [address], [place] [address] Feb, [facility] [address] [id number] [address] [place] [address], [place] [address] Feb, [facility] [address] [id number] [address] [place] [address], [place] [address] Feb, [facility] [address] [id number] [address] [place] [address], [place] [address] Feb, [facility] [address] [id number] [address] [place] [address], [place] [address] Feb, [facility] [address] [id number] [address] [place] [address], [place] [address] Feb, [facility] [address] [id number] [address] [place] [address], [place] [address] Feb, [facility] [address] [id number] [address] [place] [address], [place] [address] Jan, [facility] [address] [id number] [address] [place] [address], [place] [address] Jan, [facility] [address] [id number] [address] [place] [address], [place] [address] Dec, [facility] [address] [id number] [address] [place] [address], [place] [address] Dec, [facility] [address] [id number] [address] [place] [address], [place] [address] Dec, [facility] [address] [id number] [address] [place] [address], [place] [address] Dec, [facility] [address] [id number] [address] [place] [address], [place] [address] Nov, [facility] [address] [id number] [address] [place] [address], [place] [address] Nov, [facility] [address] [id number] [address] [place] [address], [place] [address] Nov, [facility] [address] [id number] [address] [place] [address], [place] [address] Nov, [facility] [address] [id number] [address] [place] [address], [place] [address] Oct, [facility] [address] [id number] [address] [place] [address], [place] [address] Oct, [facility] [address] [id number] [address] [place] [address], [place] [address] Oct, [facility] [address] [id number] [address] [place] [address], [place] [address] Oct, [facility] [address] [id number] [address] [place] [address], [place] [address] Oct, [facility] [address] [id number] [address] [place] [address], [place] [address] Sep, [facility] [address] [id number] [address] [place] [address] [place] [address] Sep, [facility] [address] [id number] [address] [place] [address], [place] [address] Sep, [facility] [address] [id number] [address] [place] [address], [place] [address] Sep, [facility] [address] [id number] [address] [place] [address], [place] [address] Sep, [facility] [address] [id number] [address] [place] [address], [place] [address] Sep, [facility] [address] [id number] [address] [place] [address], [place] [address] Aug, [facility] [address] [id number] [address] [place] [address], [place] [address] Aug, [facility] [address] [id number] [address] [place] [address], [place] [address] Aug, [facility] [address] [id number] [address] [place] [address], [place] [address] Aug, [facility] [address] [id number] [address] [place] [address], [place] [address] Aug, [facility] [address] [id number] [address] [place] [address], [place] [address] Aug, [facility] [address] [id number] [address] [place] [address], [place] [address] July, [facility] [address] [id number] [address] [place] [address], [place] [address] July, [facility] [address] [id number] [address] [place] [address], [place] [address] Jun, [facility] [address] [id number] [address] [place] [address], [place] [address] Jun, [facility] [address] [id number] [address] [place] [address], [place] [address] May, [facility] [address] [id number] [address] [place] [address], [place] [address] 11 May, 2013 [facility] [address] [id number] [address] [place] [address], [place] [address] 07 May, 2013 [facility] [address] [id number] [address] [place] [address], [place] [address] 07 May, 2013 [facility] [address] [id number] [address] [place] [address], [place] [address] Apr, 2013 [facility] [address] [id number] [address] [place] [address], [place] [address] Apr, 2013 [facility] [address] [id number] [address] [place] [address], [place] [address] Apr, [facility] [address] [id number] [address] [place] [address], [place] [address] Apr, [facility] [address] [id number] [address] [place] [address], [place] [address] Apr, [facility] [address] [id number] [address] [place] [address], [place] [address] Apr, [facility] [address] [id number] [address] [place] [address], [place] [address] Feb, [facility] [address] [id number] [address] [place] [address], [place] [address] Feb, [facility] [address] [id number] [address] [place] [address] Feb, [facility] [address] [id number] [address] [place] [address], [place] [address] Feb, [facility] [address] [id number] [address] [place] [address], [place] [address] Jan, [facility] [address] [id number] [address] [place] [address], [place] [address] Jan, [facility] [address] [id number] [address] [place] [address] 14 Dec, 2012 [facility] [address] [id number] [address] [place] [address], [place] [address] Dec, [facility] [address] [id number] [address] [place] [address] Dec, [facility] [address] [id number] [address] [place] [address], [place] [address] Dec, [facility] [address] [id number] [address] [place] [address] Oct, [facility] [address] [id number] [address] [place] [id number] Oct, [facility] [address] [id number] [address] [place] [id number] Oct, [facility] [address] [id number] [address] [place] [address] Oct, [facility] [address] [id number] [address] [place] [address] Sep, [facility] [address] [id number] [address] [place] [address] Sep, [facility] [address] [id number] [address] [place] [address], [place] [address] Aug, [facility] [address] [id number] [address] [place] [address] Aug, [facility] [address] [id number] [address] [place] [address] Aug, [facility] [address] [id number] [address] [place] [address] Aug, [facility] [address] [id number] [address] [place] [address], [place] [address] July, [facility] [address] [id number] [address] [place] [address], [place] [address] Jun, [facility] [address] [id number] [address] [place] [address], [place] [address] 13 May, 2012 [facility] [address] [id number] [address] [place] [address], [place] [address] 05 May, 2012 [facility] [address] [id number] [address] [place] [address], [place] [address] 05 May, 2012 [facility] [address] [id number] [address] [place] [address], [place] [address] 05 May, 2012 [facility] [address] [id number] [address] [place] [address], [place] [address] 05 May, 2012 [facility] [address] [id number] [address] [place] [address], [place] [address] Apr, [facility] [address] [id number] [address] [place] [address], [place] [address] Apr, [facility] [address] [id number] [address] [place] [address], [place] [address] Apr, [facility] [address] [id number] [address] [place] [address], [place] [address] 04 Apr, 2012 [facility] [address] [id number] [address] [place] [address], [place] [address] Mar, [facility] [address] [id number] [address] [place] [address], [place] [address] Mar, [facility] [address] [id number] [address] [place] [address], [place] [address] Mar, [facility] [address] [id number] [address] [place] [address], [place] [address] Mar, [facility] [address] [id number] [address] [place] [address], [place] [address] Jan, [facility] [address] [id number] [address] [place] [address], [place] [address] 16 Jan, 2012 [facility] [address] [id number] [address] [place] [address], [place] [address] Jan, [facility] [address] [id number] [address] [place] [address], [place] [address] 15 Jan, 2012 [facility] [address] [id number] [address] [place] [address], [place] [address] Jan, [facility] [address] [id number] [address] [place] [address], [place] [address] Jan, [facility] [address] [id number] [address] [place] [address], [place] [address] Jan, [facility] [address] [id number] [address] [place] [address], [place] [address] Jan, [facility] [address] [id number] [address] [place] [address], [place] [address] Jan, [facility] [address] [id number] [address] [place] [address], [place] [address] Jan, [facility] [address] [id number] [address] [place] [address], [place] [address] Dec, [facility] [address] [id number] [address] [place] [address], [place] [address] Dec, [facility] [address] [id number] [address] [place] [address], [place] [address] Dec, [facility] [address] [id number] [address] [place] [address], [place] [address] Nov, [facility] [address] [id number] [address] [place] [address] 26 Nov, 2011 [facility] [address] [id number] [address] [place] [address], [place] [address] Nov, [facility] [address] [id number] [address] [place] [address], [place] [address] Nov, [facility] [address] [id number] [address] [place] [address], [place] [address] Oct, [facility] [address] [id number] [facility] [place] [address] Oct, IMMUNIZATIONS No Known Immunizations SOCIAL HISTORY [...] surgeries Hospitalization History [facility] 06/2018 Hospitalization History [facility]- 07/2018 [facility] [place] - heart attack and rehab -03/02/2019
--- OUTSIDE RECORDS SUMMARY | 2019-10-26 19:40 | XMS REPORT ---
Author Author Sarah AMADO Organization [facility] Address [address] [place] [address] Care Team Providers [employer] Mechanic Name Role Phone GEE AMADO Unavailable PROBLEMS Type Condition ICD9-CM Code OVY96-DM Code Onset Dates Condition S tatus SNOMED Code Problem Coronary artery disease invo lving [place] coronary artery of [place] heart without angina pectoris I25.10 Active 1641 [id number] Problem Hyperlipidemia, unspecified hyperlipidemia type E7 8.5 Active 82288721 Problem Paresthesias in right hand R20.2 Act chidi 204308902 Problem Neck pain M54.2 Active 70041534 Problem GERD (gastroesophageal reflux disease) K21.9 Active 568059914 Problem Essential hypertension I10 Active 30970103 Problem Chronic kidney disease, unspecified CKD stage N18. 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 Active 382162090 Problem Morbid (severe) obesity due to excess calories E66 .01 Active 362686818 Problem Chronic kidney disease, stage 3 (moderate) N18.3 Active 454233179 Problem Other cirrhosis of liver K74.69 Activ e 48904579 Problem Chronic diastolic (congestive) heart failure I50.3 2 Active 931078581 ALLERGIES No Information ENCOUNTERS Encounter Location Date Diagnosis [facility] [address] [facility] [id number] [place] [address] 15 Aug, 2019 Type 2 diabetes mellitus wit h diabetic neuropathy, unspecified E11.40 ; Neck pain M54.2 and Other cirrhosis of liver K74.69 [facility] [address] [facility] [id number] [address] [place] [phone] 09 Aug, [address] [id number] [place] [address] Aug, [facility] [address] [facility] [id number] [address] [place] [phone] Aug, [facility] [address] [facility] [id number] [address] [place] [phone] Aug, [facility] [address] [facility] [id number] [address] [place] [phone] July, [facility] [address] [facility] [id number] [address] [place] [phone] July, Anemia due to acute blood lo ss D62 and Essential hypertension I10 [facility] [address] [facility] [id number] [address] [place] [phone] July, [facility] [address] [facility] [id number] [address] [place] [phone] July, [facility] [address] [facility] [id number] [address] [place] [phone] July, [address] [id number] [place] [address] July, [address] [id number], [place] [address] Jun, [address] [id number], [place] [address] Jun, Chronic diastolic (congestiv e) heart failure I50.32 ; COPD (chronic obstructive pulmonary disease) J44.9 ; Dyspnea R06.00 and Weakness R53.[address] [place] [address] Jun, [facility] [address] [facility] [id number] [address] [place] [phone] Jun, [facility] [address] [facility] [id number] [address] [place] [phone] Jun, [facility] [address] [facility] [id number] [address] [place] [phone] May, [facility] [address] [facility] [id number] [address] [place] [phone] May, Other cirrhosis of liver K74 .69 and Type 2 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, unspecified whether intermediate insulin use E11.40 [facility] [address] [facility] [id number] [address] [place] [phone] 16 May, 2019 [facility] [address] [facility] [id number] [address] [place] [phone] 12 May, 2019 Type 2 diabetes mellitus wit h other specified complication E11.69 ; Other cirrhosis of liver K74.69 ; Chronic kidney disease, stage 3 (moderate) N18.3 ; Chronic diastolic (congestive) heart failure I50.32 ; Paroxysmal atrial fibrillation I48.0 ; Morbid (severe) obesity due to excess calories E66.01 and Hyperlipidemia, unspecified hyperlipidemia type E78.5 [facility] [address] [facility] [id number] [address] [place] [phone] May, [address] 340[address] [id number], [place] [address] Apr, [facility] [address] [facility] [id number] [address] [place] [phone] Mar, [facility] [address] [facility] [id number] [address] [place] [phone] Mar, [facility] [address] [facility] [id number] [address] [place] [phone] Mar, [facility] [address] [facility] [id number] [address] [place] [phone] Mar, [facility] [address] [facility] [id number] [address] [place] [phone] Mar, [address] 340B [id number] [place] [address] Mar, [facility] [place] [facility] [address] [facility] [address] [id number] [place] [address] Mar, [facility] [address] [id number] [address] [place] [phone] Mar, [facility] [address] [id number] [address] [place] [phone] Mar, [facility] [address] [id number] [address] [place] [phone] Mar, [facility] [address] [id number] [address] [place] [phone] Feb, [facility] [address] [id number] [address] [place] [phone] Feb, Coronary artery disease invo lving [place] coronary artery of [place] heart without angina pectoris I25.10 ; Chronic kidney disease, stage 3 (moderate) N18.3 and Morbid (severe) obesity due to excess calories E66.01 [facility] [address] [id number] [address] [place] [phone] Feb, [facility] [address] [id number] [address] [place] [phone] Feb, [facility] [address] [id number] [address] [place] [phone] Feb, [facility] [address] [id number] [address] [place] [phone] Jan, [facility] [address] [id number] [address] [place] [phone] Jan, [facility] [address] [id number] [address] [place] [phone] Jan, [facility] [address] [id number] [address] [place] [phone] Jan, [facility] [address] [id number] [address] [place] [phone] Jan, [facility] [address] [id number] [address] [place] [phone] Jan, [facility] [address] [id number] [address] [place] [phone] Dec, [facility] [place] [address] [id number], [place] [address] Dec, [facility] [address] [id number] [address] [place] [phone] Nov, [facility] [address] [id number] [address] [place] [phone] Nov, [facility] [address] [id number] [address] [place] [phone] Nov, [facility] [address] [id number] [address] [place] [phone] Nov, [facility] CH[place]ST[place] [address] [id number], [place] [address] Oct, [facility] [address] [id number] [address] [place] [phone] Oct, [address] [id number], [place] [address] Sep, [facility] [address] [id number] [address] [place] [phone] Sep, [facility] [address] [facility] [id number] [address] [place] [phone] Aug, Type 2 diabetes mellitus wit h unspecified complications E11.8 ; 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 and Obesity (BMI 30-39.9) E66.9 [facility] CH[place] [address] [id number], [place] [address] 10 Aug, 2018 Type 2 diabetes mellitus wit hout complications E11.[address] 340B [id number], [place] [address] Aug, Type 2 diabetes mellitus wit hout complications E11.9 [facility] [address] [facility] [id number] [address] [place] [phone] Aug, [address] 340[address] [id number] [place] [address] July, terminal operations supervisor current use of ins ulin Z79.4 and Type 2 diabetes mellitus with unspecified complications E11.[address] 340[address] [id number] [place] [address] July, Screening mammogram, encount er for Z12.31 [facility] [address] [id number] [address] [place] [phone] July, [place] [address] [facility] [id number] [address] [place] [phone] July, Paroxysmal atrial fibrillati on I48.0 and Coronary artery disease involving [place] coronary artery of [place] heart without angina pectoris I25.10 [facility] [address] [id number] [address] [place] [phone] Jun, [facility] [address] [id number] [address] [place] [phone] Jun, [facility] [address] [facility] [id number] [address] [place] [phone] May, [facility] [address] [facility] [id number] [address] [place] [phone] May, Type 2 diabetes mellitus wit h unspecified complications E11.8 ; longterm 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 ; Leg cramps R25.2 ; Essential hypertension I10 and Routine adult health maintenance Z00.00 [facility] [address] [id number] [address] [place] [phone] Apr, [facility] [address] [facility] [id number] [address] [place] [phone] Apr, [facility] [address] [facility] [id number] [address] [place] [phone] Mar, Type 2 diabetes mellitus wit hout complications E11.9 [facility] [address] [facility] [id number] [address] [place] [phone] Mar, Type 2 diabetes mellitus wit hout complications E11.9 [facility] [address] [facility] [id number] [address] [place] [phone] Mar, Type 2 diabetes mellitus wit hout complications E11.9 [facility] [address] [facility] [id number] [address] [place] [phone] Feb, Essential (primary) hyperten sofie I10 [facility] [address] [facility] [id number] [address] [place] [phone] Feb, [facility] [address] [facility] [id number] [address] [place] [phone] Jan, Type 2 diabetes mellitus wit hout complications E11.9 [facility] [address] [facility] [id number] [address] [place] [phone] 30 Dec, 2017 [facility] [address] [facility] [id number] [address] [place] [phone] Dec, Type 2 diabetes mellitus wit h diabetic neuropathy, unspecified E11.40 ; longterm 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 and Chronic kidney disease, unspecified CKD stage N18.9 [facility] [address] [facility] [id number] [address] [place] [phone] Dec, Type 2 diabetes mellitus wit hout complications E11.9 [facility] [address] [facility] [id number] [address] [place] [phone] Dec, [facility] [address] [facility] [id number] [address] [place] [phone] Dec, Type 2 diabetes mellitus wit hout complications E11.9 [facility] [address] [facility] [id number] [address] [place] [phone] Dec, [facility] [address] [facility] [id number] [address] [place] [phone] Oct, [facility] [address] [id number] [address] [place] [phone] Sep, [facility] [address] [facility] [id number] [address] [place] [phone] Aug, [facility] [address] [facility] [id number] [address] [place] [phone] Aug, Exposure to hepatitis C Z20. 5 and Routine adult health maintenance Z00.00 [facility] [address] [facility] [id number] [address] [place] [phone] Aug, Exposure to hepatitis C Z20. 5 [facility] [address] [facility] [id number] [address] [place] [phone] 11 Aug, 2017 Medicare annual wellness vis it, initial Z00.00 ; Coronary artery disease involving [place] coronary artery of [place] heart without angina pectoris I25.10 ; Hyperlipidemia, unspecified hyperlipidemia type E78.5 ; Essential hypertension I10 ; GERD (gastroesophageal reflux disease) K21.9 ; Routine adult health maintenance Z00.00 ; Encounter for immunization Z23 ; Type 2 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, unspecified E11.40 and 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 [facility] [address] [facility] [id number] [address] [place] [phone] July, Type 2 diabetes mellitus wit hout complications E11.9 and Type 2 diabetes mellitus without complications E11.9 [facility] [address] [facility] [id number] [address] [place] [phone] July, [facility] [address] [facility] [id number] [address] [place] [phone] July, [facility] [address] [facility] [id number] [address] [place] [phone] Mar, Type 2 diabetes mellitus wit hout complications E11.9 [facility] [address] [facility] [id number] [address] [place] [phone] Mar, [facility] [address] [place] [id number] [address] [place] [phone] Feb, Type 2 diabetes mellitus wit hout complications E11.9 [facility] [address] [id number] [address] [place] [phone] Jan, Type 2 diabetes mellitus wit hout complications E11.9 [facility] [address] [facility] [id number] [address] [place] [phone] Jan, Type 2 diabetes mellitus wit hout complications E11.9 [facility] [address] [id number] [address] [place] [phone] Nov, [facility] [address] [id number] [address] [place] [phone] Oct, Type 2 diabetes mellitus wit hout complications E11.9 [facility] [address] [facility] [id number] [address] [place] [phone] Oct, Type 2 diabetes mellitus wit hout complications E11.9 ; Essential hypertension I10 and Neck pain M54.2 [facility] [address] [id number] [address] [place] [phone] Sep, [facility] [address] [id number] [address] [place] [phone] Aug, Type 2 diabetes mellitus wit hout complications E11.9 [facility] [address] [facility] [id number] [address] [place] [phone] Jun, Type 2 diabetes mellitus wit hout complications E11.9 ; Neck pain M54.2 and Essential hypertension I10 [facility] [address] [id number] [address] [place] [phone] Jun, [facility] [address] [facility] [id number] [address] [place] [phone] Jun, [facility] [address] [facility] [id number] [address] [place] [phone] Jun, GERD (gastroesophageal reflu x disease) K21.9 and Type 2 diabetes mellitus without complications E11.9 [facility] [address] [id number] [address] [place] [phone] 10 Mar, 2016 Paresthesias in right hand R 20.2 [facility] [address] [id number] [address] [place] [phone] Feb, Type 2 diabetes mellitus wit hout complications E11.9 [facility] [address] [id number] [address] [place] [id number] Feb, Encounter for dental examina tion Z01.20 [facility] [address] [id number] [address] [place] [phone] Feb, Type 2 diabetes mellitus wit hout complications E11.9 and Neck pain M54.2 [facility] [address] [id number] [address] [place] [phone] Feb, Type 2 diabetes mellitus wit hout complications E11.9 [facility] [address] [id number] [address] [place] [id number] Jan, Dental examination Z01.20 [facility] [address] [id number] [address] [place] [phone] Jan, [facility] [address] [id number] [address] [place] [phone] Jan, [facility] [address] [id number] [address] [place] [id number] Dec, Dental caries K02.9 [facility] [address] [id number] [address] [place] [phone] Nov, [facility] [address] [id number] [address] [place] [phone] Nov, [facility] [address] [id number] [address] [place] [phone] Oct, Type 2 diabetes mellitus wit hout complications E11.9 ; Neck pain M54.2 and Essential hypertension I10 [facility] [address] [id number] [address] [place] [phone] Oct, [facility] [address] [id number] [address] [place] [id number] Oct, Dental examination Z01.20 [facility] [address] [id number] [address] [place] [phone] Sep, [facility] [address] [id number] [address] [place] [phone] Sep, [facility] [address] [id number] [address] [place] [phone] Aug, Essential (primary) hyperten sofie I10 [facility] [address] [id number] [address] [place] [phone] Aug, [facility] [address] [id number] [address] [place] [phone] Aug, [facility] [address] [facility] [id number] [address] [place] [phone] July, Essential (primary) hyperten sofie I10 [facility] [address] [id number] [address] [place] [phone] July, Essential (primary) hyperten sofie I10 and Type 2 diabetes mellitus without complications E11.9 [facility] [address] [id number] [address] [place] [phone] July, [facility] [address] [id number] [address] [place] [phone] Jun, GERD (gastroesophageal reflu x disease) K21.9 [facility] [address] [id number] [address] [place] [id number] Jun, GERD (gastroesophageal reflu x disease) K21.9 [facility] [address] [facility] [id number] [address] [place] [phone] Jun, [facility] [address] [facility] [id number] [address] [place] [phone] Jun, Neuropathy G62.9 [facility] [address] [facility] [id number] [address] [place] [phone] May, Essential (primary) hyperten sofie I10 [facility] [address] [facility] [id number] [address] [place] [phone] 23 May, 2015 Bronchitis J40 [facility] [address] [facility] [id number] [address] [place] [id number] 15 May, 2015 Type 2 diabetes mellitus wit hout complications E11.9 and Essential (primary) hypertension I10 [facility] [address] [facility] [id number] [address] [place] [phone] 10 May, 2015 [facility] [address] [place] [id number] [place] [phone] 10 May, 2015 GERD (gastroesophageal reflu x disease) K21.9 [facility] [address] [facility] [id number] [address] [place] [id number] 25 Apr, 2015 Other and unspecified hyperl ipidemia 272.4 ; Unspecified essential hypertension 401.9 ; Type 2 diabetes mellitus without complications E11.9 ; Neck pain M54.2 and Paresthesias in right hand R20.2 [facility] [address] [facility] [id number] [address] [place] [phone] 11 Apr, 2015 [facility] [address] [id number] [address] [place] [phone] Apr, Neuropathy G62.9 [facility] [address] [id number] [address] [place] [phone] Mar, [facility] [address] [id number] [address] [place] [phone] Feb, [facility] [address] [id number] [address] [place] [phone] Jan, [facility] [address] [id number] [address] [place] [phone] Dec, [facility] [address] [id number] [address] [place] [phone] Dec, Type 2 diabetes mellitus wit hout complications E11.9 ; Encounter for immunization Z23 and Neck pain M54.2 [facility] [address] [facility] [id number] [address] [place] [phone] Dec, [facility] [address] [facility] [id number] [address] [place] [phone] Nov, [facility] [address] [facility] [id number] [place] [phone] Nov, [facility] [address] [id number] [address] [place] [phone] Oct, [facility] [id number] [place] [phone] Oct, [facility] [address] [id number] [address] [place] [phone] Sep, [facility] [id number] [place] [phone] Sep, Coronary atherosclerosis of unspecified type of vessel, [place] or graft 414.00 ; Diabetes mellitus without mention of complication, type II or unspecified type, not stated as uncontrolled 250.00 ; Hyperlipidemia 272.4 and HTN (hypertension) 401.9 [facility] [address] [id number] [address] [place] [phone] Aug, [facility] [address] [id number] [address] [place] [phone] July, [facility] [address] [facility] [id number] [address] [place] [phone] Jun, [facility] [id number] [place] [phone] Jun, [facility] [address] [id number] [address] [place] [phone] May, [facility] [address] [id number] [address] [place] [phone] May, [facility] [address] [id number] [address] [place] [address], [place] [address] May, [facility] [address] [id number] [address] [place] [address], [place] [address] May, [facility] [address] [id number] [address] [place] [address], [place] [address] Apr, [facility] [address] [id number] [address] [place] [address], [place] [address] Apr, [facility] [address] [id number] [address] [place] [address], [place] [address] Apr, [facility] [address] [id number] [address] [place] [address], [place] [address] Apr, 2014 [facility] [address] [id number] [address] [place] [address], [place] [address] Apr, [facility] [address] [id number] [address] [place] [address], [place] [address] Apr, [facility] [address] [id number] [address] [place] [address], [place] [address] Apr, [facility] [address] [id number] [address] [place] [address], [place] [address] Apr, [facility] [address] [id number] [address] [place] [address], [place] [address] Mar, [facility] [address] [id number] [address] [place] [address], [place] [address] Mar, [facility] [address] [id number] [address] [place] [address], [place] [address] Mar, [facility] [address] [id number] [address] [place] [address], [place] [address] Mar, [facility] [address] [id number] [address] [place] [address], [place] [address] Mar, [facility] [address] [id number] [address] [place] [address], [place] [address] Mar, [facility] [address] [id number] [address] [place] [address], [place] [address] Mar, [facility] [address] [id number] [address] [place] [address], [place] [address] Mar, [facility] [address] [id number] [address] [place] [address], [place] [address] Feb, [facility] [address] [id number] [address] [place] [address], [place] [address] Feb, [facility] [address] [id number] [address] [place] [address], [place] [phone] Feb, [facility] [address] [id number] [address] [place] [address], [place] [address] Feb, [facility] [address] [id number] [address] [place] [address], [place] [address] Feb, [facility] [address] [id number] [address] [place] [address], [place] [address] Feb, [facility] [address] [id number] [address] [place] [address], [place] [address] Feb, [facility] [address] [id number] [address] [place] [address], [place] [address] Feb, [facility] [address] [id number] [address] [place] [address], [place] [address] Feb, [facility] [address] [id number] [address] [place] [address], [place] [address] Feb, [facility] [address] [id number] [address] [place] [address], [place] [address] Jan, [facility] [address] [id number] [address] [place] [address], [place] [address] Jan, [facility] [address] [id number] [address] [place] [address], [place] [address] Dec, [facility] [address] [id number] [address] [place] [address], [place] [address] Dec, [facility] [address] [id number] [address] [place] [address], [place] [address] Dec, [facility] [address] [id number] [address] [place] [address], [place] [address] Dec, [facility] [address] [id number] [address] [place] [address], [place] [address] Nov, [facility] [address] [id number] [address] [place] [address], [place] [address] Nov, [facility] [address] [id number] [address] [place] [address], [place] [address] Nov, [facility] [address] [id number] [address] [place] [address], [place] [address] Nov, [facility] [address] [id number] [address] [place] [address], [place] [address] Oct, [facility] [address] [id number] [address] [place] [address], [place] [address] Oct, [facility] [address] [id number] [address] [place] [address], [place] [address] Oct, [facility] [address] [id number] [address] [place] [address], [place] [address] Oct, [facility] [address] [id number] [address] [place] [address], [place] [address] Oct, [facility] [address] [id number] [address] [place] [address], [place] [address] Sep, [facility] [address] [id number] [address] [place] [address], [place] [address] Sep, [facility] [address] [id number] [address] [place] [address], [place] [address] Sep, [facility] [address] [id number] [address] [place] [address] [place] [address] Sep, [facility] [address] [id number] [address] [place] [address], [place] [address] Sep, [facility] [address] [id number] [address] [place] [address], [place] [address] Sep, [facility] [address] [id number] [address] [place] [address], [place] [address] Aug, [facility] [address] [id number] [address] [place] [address], [place] [address] Aug, [facility] [address] [id number] [address] [place] [address], [place] [address] Aug, [facility] [address] [id number] [address] [place] [address], [place] [address] Aug, [facility] [address] [id number] [address] [place] [address], [place] [address] Aug, [facility] [address] [id number] [address] [place] [address], [place] [address] Aug, [facility] [address] [id number] [address] [place] [address], [place] [address] July, [facility] [address] [id number] [address] [place] [address], [place] [address] July, [facility] [address] [id number] [address] [place] [address], [place] [address] Jun, [facility] [address] [id number] [address] [place] [address], [place] [address] Jun, [facility] [address] [id number] [address] [place] [address], [place] [address] May, [facility] [address] [id number] [address] [place] [address], [place] [address] May, [facility] [address] [id number] [address] [place] [address], [place] [address] May, [facility] [address] [id number] [address] [place] [address], [place] [address] May, [facility] [address] [id number] [address] [place] [address], [place] [address] Apr, 2013 [facility] [address] [id number] [address] [place] [address], [place] [address] Apr, 2013 [facility] [address] [id number] [address] [place] [address], [place] [address] Apr, 2013 [facility] [address] [id number] [address] [place] [address], [place] [address] Apr, [facility] [address] [id number] [address] [place] [address], [place] [address] Apr, [facility] [address] [id number] [address] [place] [address], [place] [address] Apr, [facility] [address] [id number] [address] [place] [address], [place] [address] Feb, [facility] [address] [id number] [address] [place] [address], [place] [address] Feb, [facility] [address] [id number] [address] [place] [address], [place] [address] Feb, [facility] [address] [id number] [address] [place] [phone] Feb, [facility] [address] [id number] [address] [place] [phone] Jan, [facility] [address] [id number] [address] [place] [address], [place] [address] Jan, [facility] [address] [id number] [address] [place] [address], [place] [address] Dec, [facility] [address] [id number] [address] [place] [phone] Dec, [facility] [address] [id number] [address] [place] [phone] Dec, [facility] [address] [id number] [address] [place] [address], [place] [address] Dec, [facility] [address] [id number] [address] [place] [phone] Oct, [facility] [address] [id number] [place] [id number] Oct, [facility] [address] [id number] [place] [id number] Oct, [facility] [address] [id number] [address] [place] [address], [place] [address] Oct, [facility] [address] [id number] [address] [place] [address], [place] [address] Sep, [facility] [address] [id number] [address] [place] [phone] Sep, [facility] [address] [id number] [address] [place] [address], [place] [address] Aug, [facility] [address] [id number] [address] [place] [phone] Aug, [facility] [address] [id number] [address] [place] [address], [place] [address] Aug, [facility] [address] [id number] [address] [place] [phone] Aug, [facility] [address] [id number] [address] [place] [phone] July, [facility] [address] [id number] [address] [place] [address], [place] [address] 16 Jun, 2012 [facility] [address] [id number] [address] [place] [phone] May, [facility] [address] [id number] [address] [place] [address], [place] [address] May, [facility] [address] [id number] [address] [place] [address], [place] [address] 05 May, 2012 [facility] [address] [id number] [address] [place] [address], [place] [address] 05 May, 2012 [facility] [address] [id number] [address] [place] [address], [place] [address] 05 May, 2012 [facility] [address] [id number] [address] [place] [address], [place] [address] Apr, [facility] [address] [id number] [address] [place] [address], [place] [address] Apr, [facility] [address] [id number] [address] [place] [address], [place] [address] 07 Apr, 2012 [facility] [address] [id number] [address] [place] [address], [place] [address] 04 Apr, 2012 [facility] [address] [id number] [address] [place] [address], [place] [address] Mar, [facility] [address] [id number] [address] [place] [address], [place] [address] Mar, [facility] [address] [id number] [address] [place] [address], [place] [address] Mar, [facility] [address] [id number] [address] [place] [address], [place] [address] Mar, [facility] [address] [id number] [address] [place] [address], [place] [address] 16 Jan, 2012 [facility] [address] [id number] [address] [place] [address], [place] [address] 16 Jan, 2012 [facility] [address] [id number] [address] [place] [address], [place] [address] 15 Jan, 2012 [facility] [address] [id number] [address] [place] [address], [place] [address] 15 Jan, 2012 [facility] [address] [id number] [address] [place] [address], [place] [address] Jan, [facility] [address] [id number] [address] [place] [phone] Jan, [facility] [address] [id number] [address] [place] [phone] Jan, [facility] [address] [id number] [address] [place] [phone] Jan, [facility] [address] [id number] [address] [place] [phone] Jan, [facility] [address] [id number] [address] [place] [phone] Jan, [facility] [address] [id number] [address] [place] [phone] Dec, [facility] [address] [id number] [address] [place] [phone] Dec, [facility] [address] [id number] [address] [place] [phone] Dec, [facility] [address] [id number] [address] [place] [phone] Nov, [facility] [address] [id number] [address] [place] [id number] Nov, [facility] [address] [id number] [address] [place] [phone] Nov, [facility] [address] [id number] [address] [place] [phone] Nov, [facility] [address] [id number] [address] [place] [phone] Oct, [facility] [address] [id number] [address] [place] [phone] Oct, IMMUNIZATIONS No Known Immunizations SOCIAL HISTORY [...] egd 01/2019 Hospitalization History surgeries [facility] Hospitalization History [facility] 07/2018 Hospitalization History [facility]en[facility]//[facility] - heart attack and rehab -03/02/2019
--- OUTSIDE RECORDS SUMMARY | 2019-10-26 19:41 | XMS REPORT ---
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 Soft Iron Inspector Name Role Phone GEE AMADO Unavailable PROBLEMS Type Condition ICD9-CM Code LYB25-YG Code Onset Dates Condition S tatus SNOMED Code Problem Coronary artery disease invo lving [place] coronary artery of [place] heart without angina pectoris I25.10 Active 1641 991107118 Problem Hyperlipidemia, unspecified hyperlipidemia type E7 8.5 Active 85561909 Problem Paresthesias in right hand R20.2 Act chidi 645927846 Problem Neck pain M54.2 Active 46074906 Problem GERD (gastroesophageal reflux disease) K21.9 Active 623465130 Problem Essential hypertension I10 Active 21935735 Problem Chronic kidney disease, unspecified CKD stage N18. 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 Active 936166950 Problem Morbid (severe) obesity due to excess calories E66 .01 Active 553949218 Problem Chronic kidney disease, stage 3 (moderate) N18.3 Active 605443529 Problem Other cirrhosis of liver K74.69 Activ e 44181467 Problem Chronic diastolic (congestive) heart failure I50.3 2 Active [id number] ALLERGIES No Information ENCOUNTERS Encounter Location Date Diagnosis [facility] [address] [facility] [id number] [place] [address] 15 Aug, 2019 Type 2 diabetes mellitus wit h diabetic neuropathy, unspecified E11.40 ; Neck pain M54.2 and Other cirrhosis of liver K74.69 [facility] [address] [facility] [id number] [address] [place] [phone] 09 Aug, [address] 340B [id number] [place] [address] Aug, [facility] [address] [facility] [id number] [address] [place] [address] Aug, [facility] [address] [facility] [id number] [address] [place] [address] Aug, [facility] [address] [facility] [id number] [address] [place] [address] July, [facility] [address] [facility] [id number] [address] [place] [phone] July, Anemia due to acute blood lo ss D62 and Essential hypertension I10 [facility] [address] [facility] [id number] [address] [place] [phone] July, [facility] [address] [facility] [id number] [address] [place] [phone] July, [facility] [address] [facility] [id number] [address] [place] [address] July, [address] 340B [id number] [place] [address] July, [address] 340B [id number] [address] Jun, [address] 340B [id number] [address] Jun, Chronic diastolic (congestiv e) heart failure I50.32 ; COPD (chronic obstructive pulmonary disease) J44.9 ; Dyspnea R06.00 and Weakness R53.[address] [place] [address] Jun, [facility] [address] [facility] [id number] [address] [place] [phone] Jun, [facility] [address] [facility] [id number] [address] [place] [phone] Jun, [facility] [address] [facility] [id number] [address] [place] [address] May, [facility] [address] [facility] [id number] [address] [place] [phone] May, Other cirrhosis of liver K74 .69 and Type 2 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, unspecified whether detention insulin use E11.40 [facility] [address] [facility] [id number] [address] [place] [phone] 16 May, 2019 [facility] [address] [facility] [id number] [address] [place] [id number] 12 May, 2019 Type 2 diabetes mellitus wit h other specified complication E11.69 ; Other cirrhosis of liver K74.69 ; Chronic kidney disease, stage 3 (moderate) N18.3 ; Chronic diastolic (congestive) heart failure I50.32 ; Paroxysmal atrial fibrillation I48.0 ; Morbid (severe) obesity due to excess calories E66.01 and Hyperlipidemia, unspecified hyperlipidemia type E78.5 [facility] [address] [facility] [id number] [address] [place] [phone] May, [address] 340B [id number] [address] Apr, [facility] [address] [facility] [id number] [address] [place] [phone] Mar, [facility] [address] [facility] [id number] [address] [place] [phone] Mar, [facility] [address] [facility] [id number] [address] [place] [phone] Mar, [facility] [address] [facility] [id number] [address] [place] [phone] Mar, [facility] [address] [facility] [id number] [address] [place] [address] Mar, [address] 340B [id number] [place] [address] Mar, [facility] [place] [facility] [address] [facility] 340[facility] [id number] [place] [address] Mar, [facility] [address] [id number] [address] [place] [phone] Mar, [facility] [address] [id number] [address] [place] [phone] Mar, [facility] [address] [id number] [address] [place] [phone] Mar, [facility] [address] [id number] [address] [place] [phone] Feb, [facility] [address] [id number] [address] [place] [address] Feb, Coronary artery disease invo lving [place] coronary artery of [place] heart without angina pectoris I25.10 ; Chronic kidney disease, stage 3 (moderate) N18.3 and Morbid (severe) obesity due to excess calories E66.01 [facility] [address] [id number] [address] [place] [phone] Feb, [facility] [address] [id number] [address] [place] [phone] Feb, [facility] [address] [id number] [address] [place] [phone] Feb, [facility] [address] [id number] [address] [place] [phone] Jan, [facility] [address] [id number] [address] [place] [phone] Jan, [facility] [address] [id number] [address] [place] [phone] Jan, [facility] [address] [id number] [address] [place] [phone] Jan, [facility] [address] [id number] [address] [place] [phone] Jan, [facility] [address] [id number] [address] [place] [phone] Jan, [facility] [address] [id number] [address] [place] [phone] Dec, [facility] [place] [address] 340B [id number] [address] Dec, [facility] [address] [id number] [address] [place] [phone] Nov, [facility] [address] [id number] [address] [place] [phone] Nov, [facility] [address] [id number] [address] [place] [phone] Nov, [facility] [address] [id number] [address] [place] [phone] Nov, [facility] [place] [address] 340B [id number] [address] Oct, [facility] [address] [id number] [address] [place] [id number] Oct, [address] 340B [id number] [address] Sep, [facility] [address] [id number] [address] [place] [phone] Sep, [facility] [address] [facility] [id number] [address] [place] [phone] Aug, Type 2 diabetes mellitus wit h unspecified complications E11.8 ; 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 and Obesity (BMI 30-39.9) E66.9 [facility] [place] [address] 340B [id number] [address] 10 Aug, 2018 Type 2 diabetes mellitus wit hout complications E11.[address] 340B [id number] [address] Aug, Type 2 diabetes mellitus wit hout complications E11.9 [facility] [address] [facility] [id number] [address] [place] [phone] Aug, [address] 340B [id number] [place] [address] July, 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 control technician 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 ins ulin Z79.4 and Type 2 diabetes mellitus with unspecified complications E11.[address] 340B [id number] [place] [address] July, Screening mammogram, encount er for Z12.31 [facility] [address] [id number] [address] [place] [address] July, [place] [address] [facility] [id number] [address] [place] [phone] July, Paroxysmal atrial fibrillati on I48.0 and Coronary artery disease involving [place] coronary artery of [place] heart without angina pectoris I25.10 [facility] [address] [id number] [address] [place] [phone] Jun, [facility] [address] [id number] [address] [place] [phone] Jun, [facility] [address] [facility] [id number] [address] [place] [phone] May, [facility] [address] [facility] [id number] [address] [place] [phone] May, Type 2 diabetes mellitus wit h unspecified complications E11.8 ; nursing home 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 ; Leg cramps R25.2 ; Essential hypertension I10 and Routine adult health maintenance Z00.00 [facility] [address] [id number] [address] [place] [phone] Apr, [facility] [address] [facility] [id number] [address] [place] [phone] Apr, [facility] [address] [facility] [id number] [address] [place] [phone] Mar, Type 2 diabetes mellitus wit hout complications E11.9 [facility] [address] [facility] [id number] [address] [place] [phone] Mar, Type 2 diabetes mellitus wit hout complications E11.9 [facility] [address] [facility] [id number] [address] [place] [phone] Mar, Type 2 diabetes mellitus wit hout complications E11.9 [facility] [address] [facility] [id number] [address] [place] [phone] Feb, Essential (primary) hyperten sofie I10 [facility] [address] [facility] [id number] [address] [place] [phone] Feb, [facility] [address] [facility] [id number] [address] [place] [phone] Jan, Type 2 diabetes mellitus wit hout complications E11.9 [facility] [address] [facility] [id number] [address] [place] [phone] 30 Dec, 2017 [facility] [address] [facility] [id number] [address] [place] [id number] Dec, Type 2 diabetes mellitus wit h diabetic neuropathy, unspecified E11.40 ; nursing home 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 and Chronic kidney disease, unspecified CKD stage N18.9 [facility] [address] [facility] [id number] [address] [place] [phone] Dec, Type 2 diabetes mellitus wit hout complications E11.9 [facility] [address] [facility] [id number] [address] [place] [phone] Dec, [facility] [address] [facility] [id number] [address] [place] [address] Dec, Type 2 diabetes mellitus wit hout complications E11.9 [facility] [address] [facility] [id number] [address] [place] [phone] Dec, [facility] [address] [facility] [id number] [address] [place] [phone] Oct, [facility] [address] [id number] [address] [place] [phone] Sep, [facility] [address] [facility] [id number] [address] [place] [phone] Aug, [facility] [address] [facility] [id number] [address] [place] [phone] Aug, Exposure to hepatitis C Z20. 5 and Routine adult health maintenance Z00.00 [facility] [address] [facility] [id number] [address] [place] [id number] Aug, Exposure to hepatitis C Z20. 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 [facility] [address] [facility] [id number] [address] [place] [phone] July, Type 2 diabetes mellitus wit hout complications E11.9 and Type 2 diabetes mellitus without complications E11.9 [facility] [address] [facility] [id number] [address] [place] [phone] July, [facility] [address] [facility] [id number] [address] [place] [phone] July, [facility] [address] [facility] [id number] [address] [place] [phone] Mar, Type 2 diabetes mellitus wit hout complications E11.9 [facility] [address] [facility] [id number] [address] [place] [phone] Mar, [facility] [address] [place] [id number] [address] [place] [phone] Feb, Type 2 diabetes mellitus wit hout complications E11.9 [facility] [address] [id number] [address] [place] [phone] Jan, Type 2 diabetes mellitus wit hout complications E11.9 [facility] [address] [facility] [id number] [address] [place] [phone] Jan, Type 2 diabetes mellitus wit hout complications E11.9 [facility] [address] [id number] [address] [place] [id number] Nov, [facility] [address] [id number] [address] [place] [phone] Oct, Type 2 diabetes mellitus wit hout complications E11.9 [facility] [address] [facility] [id number] [address] [place] [phone] Oct, Type 2 diabetes mellitus wit hout complications E11.9 ; Essential hypertension I10 and Neck pain M54.2 [facility] [address] [id number] [address] [place] [phone] Sep, [facility] [address] [id number] [address] [place] [phone] Aug, Type 2 diabetes mellitus wit hout complications E11.9 [facility] [address] [facility] [id number] [address] [place] [phone] Jun, Type 2 diabetes mellitus wit hout complications E11.9 ; Neck pain M54.2 and Essential hypertension I10 [facility] [address] [id number] [address] [place] [phone] Jun, [facility] [address] [facility] [id number] [address] [place] [phone] Jun, [facility] [address] [facility] [id number] [address] [place] [phone] Jun, GERD (gastroesophageal reflu x disease) K21.9 and Type 2 diabetes mellitus without complications E11.9 [facility] [address] [id number] [address] [place] [phone] 10 Mar, 2016 Paresthesias in right hand R 20.2 [facility] [address] [id number] [address] [place] [id number] Feb, Type 2 diabetes mellitus wit hout complications E11.9 [facility] [address] [id number] [address] [place] [id number] Feb, Encounter for dental examina tion Z01.20 [facility] [address] [id number] [address] [place] [phone] Feb, Type 2 diabetes mellitus wit hout complications E11.9 and Neck pain M54.2 [facility] [address] [id number] [address] [place] [phone] Feb, Type 2 diabetes mellitus wit hout complications E11.9 [facility] [address] [id number] [address] [place] [id number] Jan, Dental examination Z01.20 [facility] [address] [id number] [address] [place] [phone] Jan, [facility] [address] [id number] [address] [place] [id number] Jan, [facility] [address] [id number] [address] [place] [id number] Dec, Dental caries K02.9 [facility] [address] [id number] [address] [place] [phone] Nov, [facility] [address] [id number] [address] [place] [phone] Nov, [facility] [address] [id number] [address] [place] [phone] Oct, Type 2 diabetes mellitus wit hout complications E11.9 ; Neck pain M54.2 and Essential hypertension I10 [facility] [address] [id number] [address] [place] [phone] Oct, [facility] [address] [id number] [address] [place] [id number] Oct, Dental examination Z01.20 [facility] [address] [id number] [address] [place] [id number] Sep, [facility] [address] [id number] [address] [place] [phone] Sep, [facility] [address] [id number] [address] [place] [phone] Aug, Essential (primary) hyperten sofie I10 [facility] [address] [id number] [address] [place] [phone] Aug, [facility] [address] [id number] [address] [place] [phone] Aug, [facility] [address] [facility] [id number] [address] [place] [phone] July, Essential (primary) hyperten sofie I10 [facility] [address] [id number] [address] [place] [phone] July, Essential (primary) hyperten sofie I10 and Type 2 diabetes mellitus without complications E11.9 [facility] [address] [id number] [address] [place] [phone] July, [facility] [address] [id number] [address] [place] [phone] Jun, GERD (gastroesophageal reflu x disease) K21.9 [facility] [address] [id number] [address] [place] [phone] Jun, GERD (gastroesophageal reflu x disease) K21.9 [facility] [address] [facility] [id number] [address] [place] [phone] Jun, [facility] [address] [facility] [id number] [address] [place] [phone] Jun, Neuropathy G62.9 [facility] [address] [facility] [id number] [address] [place] [phone] May, Essential (primary) hyperten sofie I10 [facility] [address] [facility] [id number] [address] [place] [id number] 23 May, 2015 Bronchitis J40 [facility] [address] [facility] [id number] [address] [place] [phone] 15 May, 2015 Type 2 diabetes mellitus wit hout complications E11.9 and Essential (primary) hypertension I10 [facility] [address] [facility] [id number] [address] [place] [phone] 10 May, 2015 [facility] [address] [place] [id number] [place] [phone] 10 May, 2015 GERD (gastroesophageal reflu x disease) K21.9 [facility] [address] [facility] [id number] [address] [place] [id number] 25 Apr, 2015 Other and unspecified hyperl ipidemia 272.4 ; Unspecified essential hypertension 401.9 ; Type 2 diabetes mellitus without complications E11.9 ; Neck pain M54.2 and Paresthesias in right hand R20.2 [facility] [address] [facility] [id number] [address] [place] [id number] 11 Apr, 2015 [facility] [address] [place] [id number] [address] [place] [phone] Apr, Neuropathy G62.9 [facility] [address] [place] [id number] [address] [place] [phone] Mar, [facility] [address] [place] [id number] [address] [place] [id number] Feb, [facility] [address] [place] [id number] [address] [place] [phone] Jan, [facility] [address] [place] [id number] [address] [place] [id number] Dec, [facility] [address] [place] [id number] [address] [place] [phone] Dec, Type 2 diabetes mellitus wit hout complications E11.9 ; Encounter for immunization Z23 and Neck pain M54.2 [facility] [address] [facility] [id number] [address] [place] [id number] Dec, [facility] [address] [facility] [id number] [address] [place] [phone] Nov, [facility] [address] [facility] [id number] [place] [id number] Nov, [facility] [address] [place] [id number] [address] [place] [id number] Oct, [facility] [address] [place] [id number] [place] [phone] Oct, [facility] [address] [place] [id number] [address] [place] [phone] Sep, [facility] [address] [place] [id number] [place] [phone] Sep, Coronary atherosclerosis of unspecified type of vessel, bishop paiute or graft 414.00 ; Diabetes mellitus without mention of complication, type II or unspecified type, not stated as uncontrolled 250.00 ; Hyperlipidemia 272.4 and HTN (hypertension) 401.9 [facility] [address] [place] [id number] [address] [place] [phone] Aug, [facility] [address] [place] [id number] [address] [place] [address] [id number] July, [facility] [address] [facility] [id number] [address] [place] [id number] Jun, [facility] [address] [place] [id number] [place] [id number] Jun, [facility] [address] [id number] [address] [place] [id number] May, [facility] [address] [place] [place] [id number] [address] [place] [id number] May, [facility] [address] [id number] [address] [place] [address], [place] [address] May, [facility] [address] [id number] [address] [place] [address], [place] [address] May, [facility] [address] [id number] [address] [place] [address], [place] [address] Apr, [facility] [address] [id number] [address] [place] [address], [place] [address] Apr, [facility] [address] [id number] [address] [place] [address], [place] [address] Apr, [facility] [address] [id number] [address] [place] [address], [place] [address] Apr, 2014 [facility] [address] [id number] [address] [place] [address], [place] [address] Apr, [facility] [address] [id number] [address] [place] [address], [place] [address] Apr, [facility] [address] [id number] [address] [place] [address], [place] [address] Apr, [facility] [address] [id number] [address] [place] [address], [place] [address] Apr, [facility] [address] [id number] [address] [place] [address], [place] [address] Mar, [facility] [address] [id number] [address] [place] [address], [place] [address] Mar, [facility] [address] [id number] [address] [place] [address], [place] [address] Mar, [facility] [address] [id number] [address] [place] [address], [place] [address] Mar, [facility] [address] [id number] [address] [place] [address], [place] [address] Mar, [facility] [address] [id number] [address] [place] [address], [place] [address] Mar, [facility] [address] [id number] [address] [place] [address], [place] [address] Mar, [facility] [address] [id number] [address] [place] [address], [place] [address] Mar, [facility] [address] [id number] [address] [place] [address], [place] [address] Feb, [facility] [address] [id number] [address] [place] [address], [place] [address] Feb, [facility] [address] [id number] [address] [place] [address], [place] [address] Feb, [facility] [address] [id number] [address] [place] [address], [place] [address] Feb, [facility] [address] [id number] [address] [place] [address], [place] [address] Feb, [facility] [address] [id number] [address] [place] [address], [place] [address] Feb, [facility] [address] [id number] [address] [place] [address], [place] [address] Feb, [facility] [address] [id number] [address] [place] [address], [place] [address] Feb, [facility] [address] [id number] [address] [place] [address], [place] [address] Feb, [facility] [address] [id number] [address] [place] [address], [place] [address] Feb, [facility] [address] [id number] [address] [place] [address], [place] [address] Jan, [facility] [address] [id number] [address] [place] [address], [place] [address] Jan, [facility] [address] [id number] [address] [place] [address], [place] [address] Dec, [facility] [address] [id number] [address] [place] [address], [place] [address] Dec, [facility] [address] [id number] [address] [place] [address], [place] [address] Dec, [facility] [address] [id number] [address] [place] [address], [place] [address] Dec, [facility] [address] [id number] [address] [place] [address], [place] [address] Nov, [facility] [address] [id number] [address] [place] [address], [place] [address] Nov, [facility] [address] [id number] [address] [place] [address], [place] [address] Nov, [facility] [address] [id number] [address] [place] [address], [place] [address] Nov, [facility] [address] [id number] [address] [place] [address], [place] [address] Oct, [facility] [address] [id number] [address] [place] [address], [place] [address] Oct, [facility] [address] [id number] [address] [place] [address], [place] [address] Oct, [facility] [address] [id number] [address] [place] [address], [place] [address] Oct, [facility] [address] [id number] [address] [place] [address], [place] [address] Oct, [facility] [address] [id number] [address] [place] [address], [place] [address] Sep, [facility] [address] [id number] [address] [place] [address], [place] [address] Sep, [facility] [address] [id number] [address] [place] [address], [place] [address] Sep, [facility] [address] [id number] [address] [place] [address] [place] [address] Sep, [facility] [address] [id number] [address] [place] [address], [place] [address] Sep, [facility] [address] [id number] [address] [place] [address], [place] [address] Sep, [facility] [address] [id number] [address] [place] [address], [place] [address] Aug, [facility] [address] [id number] [address] [place] [address], [place] [address] Aug, [facility] [address] [id number] [address] [place] [address], [place] [address] Aug, [facility] [address] [id number] [address] [place] [address], [place] [address] Aug, [facility] [address] [id number] [address] [place] [address], [place] [address] Aug, [facility] [address] [id number] [address] [place] [address], [place] [address] Aug, [facility] [address] [id number] [address] [place] [address], [place] [address] July, [facility] [address] [id number] [address] [place] [address], [place] [address] July, [facility] [address] [id number] [address] [place] [address], [place] [address] Jun, [facility] [address] [id number] [address] [place] [address], [place] [address] Jun, [facility] [address] [id number] [address] [place] [address], [place] [address] May, [facility] [address] [id number] [address] [place] [address], [place] [address] May, [facility] [address] [id number] [address] [place] [address], [place] [address] May, [facility] [address] [id number] [address] [place] [address], [place] [address] May, [facility] [address] [id number] [address] [place] [address], [place] [address] Apr, 2013 [facility] [address] [id number] [address] [place] [address], [place] [address] Apr, 2013 [facility] [address] [id number] [address] [place] [address], [place] [address] Apr, 2013 [facility] [address] [id number] [address] [place] [address], [place] [address] Apr, [facility] [address] [id number] [address] [place] [address], [place] [address] Apr, [facility] [address] [id number] [address] [place] [address], [place] [address] Apr, [facility] [address] [id number] [address] [place] [address], [place] [address] Feb, [facility] [address] [id number] [address] [place] [address], [place] [address] Feb, [facility] [address] [id number] [address] [place] [address], [place] [address] Feb, [facility] [address] [id number] [address] [place] [id number] Feb, [facility] [address] [id number] [address] [place] [id number] Jan, [facility] [address] [id number] [address] [place] [address], [place] [address] Jan, [facility] [address] [id number] [address] [place] [address], [place] [address] Dec, [facility] [address] [id number] [address] [place] [id number] Dec, [facility] [address] [id number] [address] [place] [id number] Dec, [facility] [address] [id number] [address] [place] [address], [place] [address] Dec, [facility] [address] [id number] [address] [place] [id number] Oct, [facility] [address] [id number] [place] [id number] Oct, [facility] [address] [id number] [place] [id number] Oct, [facility] [address] [id number] [address] [place] [address], [place] [address] Oct, [facility] [address] [id number] [address] [place] [address], [place] [address] Sep, [facility] [address] [id number] [address] [place] [id number] Sep, [facility] [address] [id number] [address] [place] [address], [place] [address] Aug, [facility] [address] [id number] [address] [place] [id number] Aug, [facility] [address] [id number] [address] [place] [address], [place] [address] Aug, [facility] [address] [id number] [address] [place] [id number] Aug, [facility] [address] [id number] [address] [place] [id number] July, [facility] [address] [id number] [address] [place] [address], [place] [address] 16 Jun, 2012 [facility] [address] [id number] [address] [place] [id number] May, [facility] [address] [id number] [address] [place] [address], [place] [address] May, [facility] [address] [id number] [address] [place] [address], [place] [address] 05 May, 2012 [facility] [address] [id number] [address] [place] [address], [place] [address] 05 May, 2012 [facility] [address] [id number] [address] [place] [address], [place] [address] 05 May, 2012 [facility] [address] [id number] [address] [place] [address], [place] [address] Apr, [facility] [address] [id number] [address] [place] [address], [place] [address] Apr, [facility] [address] [id number] [address] [place] [address], [place] [address] 07 Apr, 2012 [facility] [address] [id number] [address] [place] [address], [place] [address] 04 Apr, 2012 [facility] [address] [id number] [address] [place] [address], [place] [address] Mar, [facility] [address] [id number] [address] [place] [address], [place] [address] Mar, [facility] [address] [id number] [address] [place] [address], [place] [address] Mar, [facility] [address] [id number] [address] [place] [address], [place] [address] Mar, [facility] [address] [id number] [address] [place] [address], [place] [address] 16 Jan, 2012 [facility] [address] [id number] [address] [place] [address], [place] [address] 16 Jan, 2012 [facility] [address] [id number] [address] [place] [address], [place] [address] 15 Jan, 2012 [facility] [address] [id number] [address] [place] [address], [place] [address] 15 Jan, 2012 [facility] [address] [id number] [address] [place] [address], [place] [address] Jan, [facility] [address] [id number] [address] [place] [id number] Jan, [facility] [address] [id number] [address] [place] [phone] Jan, [facility] [address] [id number] [address] [place] [phone] Jan, [facility] [address] [id number] [address] [place] [id number] Jan, [facility] [address] [id number] [address] [place] [phone] Jan, [facility] [address] [id number] [address] [place] [phone] Dec, [facility] [address] [id number] [address] [place] [id number] Dec, [facility] [address] [id number] [address] [place] [id number] Dec, [facility] [address] [id number] [address] [place] [id number] Nov, [facility] [address] [id number] [address] [place] [id number] Nov, [facility] [address] [id number] [address] [place] [phone] Nov, [facility] [address] [id number] [address] [place] [id number] Nov, [facility] [address] [id number] [address] [place] [phone] Oct, [facility] [address] [id number] [address] [place] [id number] Oct, IMMUNIZATIONS No Known Immunizations SOCIAL HISTORY [...] egd 01/2019 Hospitalization History surgeries Hospitalization History [facility] 06[facility]2018 Hospitalization History [facility]- 07/2018 Hospitalization History [facility]en[facility]//[facility] v [facility] - heart attack and rehab -03/02/2019
--- OUTSIDE RECORDS SUMMARY | 2019-10-26 19:41 | XMS REPORT ---
Author Author Sarah AMADO Organization 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 [address] [facility] [id number] [address] [address] 15 Aug, 2019 Type 2 diabetes mellitus wit h diabetic neuropathy, unspecified E11.40 ; Neck pain M54.2 and Other cirrhosis of liver K74.69 [facility] [address] [facility] [id number] [address] [place] [address] 09 Aug, [address] 340B [id number] [place] [address] Aug, [facility] [address] [facility] [id number] [address] [place] [address] Aug, [facility] [address] [facility] [id number] [address] [place] [address] Aug, [facility] [address] [facility] [id number] [address] [place] [address] July, [facility] [address] [facility] [id number] [address] [place] [address] July, Anemia due to acute blood lo ss D62 and Essential hypertension I10 [facility] [address] [facility] [id number] [address] [place] [address] July, [facility] [address] [facility] [id number] [address] [place] [address] July, [facility] [address] [facility] [id number] [address] [place] [address] July, [address] 340B [id number] [place] [address] July, [address] 340[address] [id number] [address] Jun, [address] 340[address] [id number] [address] Jun, Chronic diastolic (congestiv e) heart failure I50.32 ; COPD (chronic obstructive pulmonary disease) J44.9 ; Dyspnea R06.00 and Weakness R53.[address] [place] [address] Jun, [facility] [address] [facility] [id number] [address] [place] [address] Jun, [facility] [address] [facility] [id number] [address] [place] [address] Jun, [facility] [address] [facility] [id number] [address] [place] [address] May, [facility] [address] [facility] [id number] [address] [place] [address] May, Other cirrhosis of liver K74 .69 and Type 2 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, unspecified whether fpc insulin use E11.40 [facility] [address] [facility] [id number] [address] [place] [address] 16 May, 2019 [facility] [address] [facility] [id number] [address] [place] [address] 12 May, 2019 Type 2 diabetes mellitus wit h other specified complication E11.69 ; Other cirrhosis of liver K74.69 ; Chronic kidney disease, stage 3 (moderate) N18.3 ; Chronic diastolic (congestive) heart failure I50.32 ; Paroxysmal atrial fibrillation I48.0 ; Morbid (severe) obesity due to excess calories E66.01 and Hyperlipidemia, unspecified hyperlipidemia type E78.5 [facility] [address] [facility] [id number] [address] [place] [address] May, [address] 340[address] [id number] [address] Apr, [facility] [address] [facility] [id number] [address] [place] [phone] Mar, [facility] [address] [facility] [id number] [address] [place] [address] Mar, [facility] [address] [facility] [id number] [address] [place] [address] Mar, [facility] [address] [facility] [id number] [address] [place] [address] Mar, [facility] [address] [facility] [id number] [address] [place] [address] Mar, [address] 340B [id number] [place] [address] Mar, [facility] [place] [facility] [address] [facility] [address] [id number] [place] [address] Mar, [facility] [address] [id number] [address] [place] [address] Mar, [facility] [address] [id number] [address] [place] [address] Mar, [facility] [address] [id number] [address] [place] [address] Mar, [facility] [address] [id number] [address] [place] [address] Feb, 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 [address] [id number] [address] [place] [address] Feb, [facility] [address] [id number] [address] [place] [phone] Feb, [facility] [address] [id number] [address] [place] [address] Feb, [facility] [address] [id number] [address] [place] [address] Jan, [facility] [address] [id number] [address] [place] [address] Jan, [facility] [address] [id number] [address] [place] [address] Jan, [facility] [address] [id number] [address] [place] [address] Jan, [facility] [address] [id number] [address] [place] [address] Jan, [facility] [address] [id number] [address] [place] [address] Jan, [facility] [address] [id number] [address] [place] [address] Dec, [facility] [place] [address] [id number], [place] [address] Dec, [facility] [address] [id number] [address] [place] [address] Nov, [facility] [address] [id number] [address] [place] [address] Nov, [facility] [address] [id number] [address] [place] [address] Nov, [facility] [address] [id number] [address] [place] [address] Nov, [facility] [place] [address] [id number], [place] [address] Oct, [facility] [address] [id number] [address] [place] [address] Oct, [address] 340[address] [id number], [place] [address] Sep, [facility] [address] [id number] [address] [place] [address] Sep, 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 [address] [id number] [address] [place] [id number] July, [place] [address] [address] [facility] [id number] [address] [place] [address] July, Paroxysmal atrial fibrillati on I48.0 and Coronary artery disease involving holy cross coronary artery of holy cross heart without angina pectoris I25.10 [facility] [address] [id number] [address] [place] [address] Jun, [facility] [address] [id number] [address] [place] [address] Jun, [facility] [address] [facility] [id number] [address] [place] [address] May, [facility] [address] [facility] [id number] [address] [place] [address] May, Type 2 diabetes mellitus wit h unspecified complications E11.8 ; skilled nursing 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 ; Leg cramps R25.2 ; Essential hypertension I10 and Routine adult health maintenance Z00.00 [facility] [address] [id number] [address] [place] [address] Apr, [facility] [address] [facility] [id number] [address] [place] [address] Apr, [facility] [address] [facility] [id number] [address] [place] [address] Mar, Type 2 diabetes mellitus wit hout complications E11.9 [facility] [address] [facility] [id number] [address] [place] [address] Mar, Type 2 diabetes mellitus wit hout complications E11.9 [facility] [address] [facility] [id number] [address] [place] [address] Mar, Type 2 diabetes mellitus wit hout complications E11.9 [facility] [address] [facility] [id number] [address] [place] [address] Feb, Essential (primary) hyperten sofie I10 [facility] [address] [facility] [id number] [address] [place] [address] Feb, [facility] [address] [facility] [id number] [address] [place] [address] Jan, Type 2 diabetes mellitus wit hout complications E11.9 [facility] [address] [facility] [id number] [address] [place] [address] 30 Dec, 2017 [facility] [address] [facility] [id number] [address] [place] [address] Dec, Type 2 diabetes mellitus wit h diabetic neuropathy, unspecified E11.40 ; skilled nursing 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 and Chronic kidney disease, unspecified CKD stage N18.9 [facility] [address] [facility] [id number] [address] [place] [address] Dec, Type 2 diabetes mellitus wit hout complications E11.9 [facility] [address] [facility] [id number] [address] [place] [address] Dec, [facility] [address] [facility] [id number] [address] [place] [address] Dec, Type 2 diabetes mellitus wit hout complications E11.9 [facility] [address] [facility] [id number] [address] [place] [address] Dec, [facility] [address] [facility] [id number] [address] [place] [address] Oct, [facility] [address] [id number] [address] [place] [address] Sep, [facility] [address] [facility] [id number] [address] [place] [address] Aug, [facility] [address] [facility] [id number] [address] [place] [address] Aug, Exposure to hepatitis C Z20. 5 and Routine adult health maintenance Z00.00 [facility] [address] [facility] [id number] [address] [place] [address] Aug, Exposure to hepatitis C Z20. 5 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 [address] [facility] [id number] [address] [place] [address] July, Type 2 diabetes mellitus wit hout complications E11.9 and Type 2 diabetes mellitus without complications E11.9 [facility] [address] [facility] [id number] [address] [place] [address] July, [facility] [address] [facility] [id number] [address] [place] [address] July, [facility] [address] [facility] [id number] [address] [place] [address] Mar, Type 2 diabetes mellitus wit hout complications E11.9 [facility] [address] [facility] [id number] [address] [place] [address] Mar, [facility] [address] [place] [id number] [address] [place] [address] Feb, Type 2 diabetes mellitus wit hout complications E11.9 [facility] [address] [id number] [address] [place] [address] Jan, Type 2 diabetes mellitus wit hout complications E11.9 [facility] [address] [facility] [id number] [address] [place] [address] Jan, Type 2 diabetes mellitus wit hout complications E11.9 [facility] [address] [id number] [address] [place] [id number] Nov, [facility] [address] [id number] [address] [place] [address] Oct, Type 2 diabetes mellitus wit hout complications E11.9 [facility] [address] [facility] [id number] [address] [place] [address] Oct, Type 2 diabetes mellitus wit hout complications E11.9 ; Essential hypertension I10 and Neck pain M54.2 [facility] [address] [id number] [address] [place] [address] Sep, [facility] [address] [id number] [address] [place] [address] Aug, Type 2 diabetes mellitus wit hout complications E11.9 [facility] [address] [facility] [id number] [address] [place] [address] Jun, Type 2 diabetes mellitus wit hout complications E11.9 ; Neck pain M54.2 and Essential hypertension I10 [facility] [address] [id number] [address] [place] [id number] Jun, [facility] [address] [facility] [id number] [address] [place] [address] Jun, [facility] [address] [facility] [id number] [address] [place] [address] Jun, GERD (gastroesophageal reflu x disease) K21.9 and Type 2 diabetes mellitus without complications E11.9 [facility] [address] [id number] [address] [place] [address] 10 Mar, 2016 Paresthesias in right hand R 20.2 [facility] [address] [id number] [address] [place] [id number] Feb, Type 2 diabetes mellitus wit hout complications E11.9 [facility] [address] [id number] [address] [place] [id number] Feb, Encounter for dental examina tion Z01.20 [facility] [address] [id number] [address] [place] [address] Feb, Type 2 diabetes mellitus wit hout complications E11.9 and Neck pain M54.2 [facility] [address] [id number] [address] [place] [address] Feb, Type 2 diabetes mellitus wit hout complications E11.9 [facility] [address] [id number] [address] [place] [id number] Jan, Dental examination Z01.20 [facility] [address] [id number] [address] [place] [address] Jan, [facility] [address] [id number] [address] [place] [id number] Jan, [facility] [address] [id number] [address] [place] [id number] Dec, Dental caries K02.9 [facility] [address] [id number] [address] [place] [address] Nov, [facility] [address] [id number] [address] [place] [address] Nov, [facility] [address] [id number] [address] [place] [phone] Oct, Type 2 diabetes mellitus wit hout complications E11.9 ; Neck pain M54.2 and Essential hypertension I10 [facility] [address] [id number] [address] [place] [address] Oct, [facility] [address] [id number] [address] [place] [address] [id number] Oct, Dental examination Z01.20 [facility] [address] [id number] [address] [place] [id number] Sep, [facility] [address] [id number] [address] [place] [id number] Sep, [facility] [address] [id number] [address] [place] [id number] Aug, Essential (primary) hyperten sofie I10 [facility] [address] [id number] [address] [place] [id number] Aug, [facility] [address] [id number] [address] [place] [id number] Aug, [facility] [address] [facility] [id number] [address] [place] [id number] July, Essential (primary) hyperten sofie I10 [facility] [address] [id number] [address] [place] [id number] July, Essential (primary) hyperten sofie I10 and Type 2 diabetes mellitus without complications E11.9 [facility] [address] [id number] [address] [place] [id number] July, [facility] [address] [id number] [address] [place] [id number] Jun, GERD (gastroesophageal reflu x disease) K21.9 [facility] [address] [id number] [address] [place] [id number] Jun, GERD (gastroesophageal reflu x disease) K21.9 [facility] [address] [facility] [id number] [address] [place] [phone] Jun, [facility] [address] [facility] [id number] [address] [place] [phone] Jun, Neuropathy G62.9 [facility] [address] [facility] [id number] [address] [place] [id number] May, Essential (primary) hyperten sofie I10 [facility] [address] [facility] [id number] [address] [place] [id number] 23 May, [address] [facility] [address] [facility] [id number] [address] [place] [id number] 15 May, 2015 Type 2 diabetes mellitus wit hout complications E11.9 and Essential (primary) hypertension I10 [facility] [address] [facility] [id number] [address] [place] [id number] [address], [address] [facility] [address] [place] [id number] [place] [id number] 10 May, 2015 GERD (gastroesophageal reflu x disease) K21.9 [facility] [address] [facility] [id number] [address] [place] [id number] 25 Apr, 2015 Other and unspecified hyperl ipidemia 272.4 ; Unspecified essential hypertension 401.9 ; Type 2 diabetes mellitus without complications E11.9 ; Neck pain M54.2 and Paresthesias in right hand R20.2 [facility] [facility] [address] [facility] [id number] [address] [place] [id number] [address], [address] [facility] [address] [id number] [address] [place] [id number] Apr, Neuropathy G62.9 [facility] [address] [id number] [address] [place] [id number] Mar, [facility] [address] [id number] [address] [place] [id number] Feb, [facility] [address] [id number] [address] [place] [id number] Jan, [facility] [address] [id number] [address] [place] [phone] Dec, [facility] [address] [id number] [address] [place] [id number] Dec, Type 2 diabetes mellitus wit hout complications E11.9 ; Encounter for immunization Z23 and Neck pain M54.2 [facility] [address] [facility] [id number] [address] [place] [phone] Dec, [facility] [address] [facility] [id number] [address] [place] [phone] Nov, [facility] [address] [facility] [id number] [place] [phone] Nov, [facility] [address] [id number] [address] [place] [phone] Oct, [facility] [id number] [place] [id number] Oct, [facility] [address] [id number] [address] [place] [phone] Sep, [facility] [id number] [place] [id number] Sep, Coronary atherosclerosis of unspecified type of vessel, holy cross or graft 414.00 ; Diabetes mellitus without mention of complication, type II or unspecified type, not stated as uncontrolled 250.00 ; Hyperlipidemia 272.4 and HTN (hypertension) 401.9 [facility] [address] [id number] [address] [place] [id number] Aug, [facility] [address] [id number] [address] [place] [phone] July, [facility] [address] [facility] [id number] [address] [place] [phone] Jun, [facility] [id number] [place] [phone] Jun, [facility] [address] [id number] [address] [place] [phone] May, [facility] [address] [id number] [address] [place] [phone] May, [facility] [address] [id number] [address] [place] [address], [place] [address] May, [facility] [address] [id number] [address] [place] [address], [place] [id number] May, [facility] [address] [id number] [address] [place] [address], [place] [address] Apr, [facility] [address] [id number] [address] [place] [address], [place] [address] Apr, [facility] [address] [id number] [address] [place] [address], [place] [address] Apr, [facility] [address] [id number] [address] [place] [address], [place] [address] Apr, 2014 [facility] [address] [id number] [address] [place] [address], [place] [address] Apr, [facility] [address] [id number] [address] [place] [address], [place] [address] Apr, [facility] [address] [id number] [address] [place] [address], [place] [address] Apr, [facility] [address] [id number] [address] [place] [address], [place] [address] Apr, [facility] [address] [id number] [address] [place] [address], [place] [address] Mar, [facility] [address] [id number] [address] [place] [address], [place] [address] Mar, [facility] [address] [id number] [address] [place] [address], [place] [address] Mar, [facility] [address] [id number] [address] [place] [address], [place] [address] Mar, [facility] [address] [id number] [address] [place] [address], [place] [address] Mar, [facility] [address] [id number] [address] [place] [address], [place] [address] Mar, [facility] [address] [id number] [address] [place] [address], [place] [address] Mar, [facility] [address] [id number] [address] [place] [address], [place] [address] Mar, [facility] [address] [id number] [address] [place] [address], [place] [address] Feb, [facility] [address] [id number] [address] [place] [address], [place] [address] Feb, [facility] [address] [id number] [address] [place] [address], [place] [address] Feb, [facility] [address] [id number] [address] [place] [address], [place] [address] Feb, [facility] [address] [id number] [address] [place] [address], [place] [address] Feb, [facility] [address] [id number] [address] [place] [address], [place] [id number] Feb, [facility] [address] [id number] [address] [place] [address], [place] [address] Feb, [facility] [address] [id number] [address] [place] [address], [place] [address] Feb, [facility] [address] [id number] [address] [place] [address], [place] [address] Feb, [facility] [address] [id number] [address] [place] [address], [place] [address] Feb, [facility] [address] [id number] [address] [place] [address], [place] [address] Jan, [facility] [address] [id number] [address] [place] [address], [place] [address] Jan, [facility] [address] [id number] [address] [place] [address], [place] [address] Dec, [facility] [address] [id number] [address] [place] [address], [place] [address] Dec, [facility] [address] [id number] [address] [place] [address], [place] [address] Dec, [facility] [address] [id number] [address] [place] [address], [place] [address] Dec, [facility] [address] [id number] [address] [place] [address], [place] [address] Nov, [facility] [address] [id number] [address] [place] [address], [place] [address] Nov, [facility] [address] [id number] [address] [place] [address], [place] [address] Nov, [facility] [address] [id number] [address] [place] [address], [place] [address] Nov, [facility] [address] [id number] [address] [place] [address], [place] [address] Oct, [facility] [address] [id number] [address] [place] [address], [place] [address] Oct, [facility] [address] [id number] [address] [place] [address], [place] [address] Oct, [facility] [address] [id number] [address] [place] [address], [place] [address] Oct, [facility] [address] [id number] [address] [place] [address], [place] [address] Oct, [facility] [address] [id number] [address] [place] [address], [place] [address] Sep, [facility] [address] [id number] [address] [place] [address], [place] [address] Sep, [facility] [address] [id number] [address] [place] [address], [place] [address] Sep, [facility] [address] [id number] [address] [place] [address] [place] [address] Sep, [facility] [address] [id number] [address] [place] [address], [place] [address] Sep, [facility] [address] [id number] [address] [place] [address], [place] [address] Sep, [facility] [address] [id number] [address] [place] [address], [place] [address] Aug, [facility] [address] [id number] [address] [place] [address], [place] [address] Aug, [facility] [address] [id number] [address] [place] [address], [place] [address] Aug, [facility] [address] [id number] [address] [place] [address], [place] [address] Aug, [facility] [address] [id number] [address] [place] [address], [place] [address] Aug, [facility] [address] [id number] [address] [place] [address], [place] [address] Aug, [facility] [address] [id number] [address] [place] [address], [place] [address] July, [facility] [address] [id number] [address] [place] [address], [place] [address] July, [facility] [address] [id number] [address] [place] [address], [place] [address] Jun, [facility] [address] [id number] [address] [place] [address], [place] [address] Jun, [facility] [address] [id number] [address] [place] [address], [place] [address] May, [facility] [address] [id number] [address] [place] [address], [place] [address] May, [facility] [address] [id number] [address] [place] [address], [place] [address] May, [facility] [address] [id number] [address] [place] [address], [place] [address] May, [facility] [address] [id number] [address] [place] [address], [place] [address] Apr, 2013 [facility] [address] [id number] [address] [place] [address], [place] [address] Apr, 2013 [facility] [address] [id number] [address] [place] [address], [place] [address] Apr, 2013 [facility] [address] [id number] [address] [place] [address], [place] [address] Apr, [facility] [address] [id number] [address] [place] [address], [place] [address] Apr, [facility] [address] [id number] [address] [place] [address], [place] [address] Apr, [facility] [address] [id number] [address] [place] [address], [place] [address] Feb, [facility] [address] [id number] [address] [place] [address], [place] [address] Feb, [facility] [address] [id number] [address] [place] [address], [place] [address] Feb, [facility] [address] [id number] [address] [place] [id number] Feb, [facility] [address] [id number] [address] [place] [phone] Jan, [facility] [address] [id number] [address] [place] [address], [place] [address] Jan, [facility] [address] [id number] [address] [place] [address], [place] [address] Dec, [facility] [address] [id number] [address] [place] [id number] Dec, [facility] [address] [id number] [address] [place] [id number] Dec, [facility] [address] [id number] [address] [place] [address], [place] [address] Dec, [facility] [address] [id number] [address] [place] [id number] Oct, [facility] [address] [id number] [place] [id number] Oct, [facility] [address] [id number] [place] [id number] Oct, [facility] [address] [id number] [address] [place] [address], [place] [address] Oct, [facility] [address] [id number] [address] [place] [address], [place] [address] Sep, [facility] [address] [id number] [address] [place] [id number] Sep, [facility] [address] [id number] [address] [place] [address], [place] [address] Aug, [facility] [address] [id number] [address] [place] [id number] Aug, [facility] [address] [id number] [address] [place] [address], [place] [address] Aug, [facility] [address] [id number] [address] [place] [id number] Aug, [facility] [address] [id number] [address] [place] [address] July, [facility] [address] [id number] [address] [place] [address], [place] [address] 16 Jun, 2012 [facility] [address] [id number] [address] [place] [address] May, [facility] [address] [id number] [address] [place] [address], [place] [address] May, [facility] [address] [id number] [address] [place] [address], [place] [address] 05 May, 2012 [facility] [address] [id number] [address] [place] [address], [place] [address] 05 May, 2012 [facility] [address] [id number] [address] [place] [address], [place] [address] 05 May, 2012 [facility] [address] [id number] [address] [place] [address], [place] [address] Apr, [facility] [address] [id number] [address] [place] [address], [place] [address] Apr, [facility] [address] [id number] [address] [place] [address], [place] [address] 07 Apr, 2012 [facility] [address] [id number] [address] [place] [address], [place] [address] 04 Apr, 2012 [facility] [address] [id number] [address] [place] [address], [place] [address] Mar, [facility] [address] [id number] [address] [place] [address], [place] [address] Mar, [facility] [address] [id number] [address] [place] [address], [place] [address] Mar, [facility] [address] [id number] [address] [place] [address], [place] [address] Mar, [facility] [address] [id number] [address] [place] [address], [place] [address] 16 Jan, 2012 [facility] [address] [id number] [address] [place] [address], [place] [address] 16 Jan, 2012 [facility] [address] [id number] [address] [place] [address], [place] [address] 15 Jan, 2012 [facility] [address] [id number] [address] [place] [address], [place] [address] 15 Jan, 2012 [facility] [address] [id number] [address] [place] [address], [place] [address] Jan, [facility] [address] [id number] [address] [place] [id number] Jan, [facility] [address] [id number] [address] [place] [id number] Jan, [facility] [address] [id number] [address] [place] [id number] Jan, [facility] [address] [id number] [address] [place] [id number] Jan, [facility] [address] [id number] [address] [place] [id number] Jan, [facility] [address] [id number] [address] [place] [id number] Dec, [facility] [address] [id number] [address] [place] [id number] Dec, [facility] [address] [id number] [address] [place] [id number] Dec, [facility] [address] [id number] [address] [place] [id number] Nov, [facility] [address] [id number] [address] [place] [id number] Nov, [facility] [address] [id number] [address] [place] [id number] Nov, [facility] [address] [id number] [address] [place] [id number] Nov, [facility] [address] [id number] [address] [place] [id number] Oct, [facility] [address] [id number] [address] [place] [id number] Oct, IMMUNIZATIONS No Known Immunizations SOCIAL HISTORY Never Assessed REASON FOR VISIT PLAN OF CARE VITAL SIGNS Height 64 in 2013-02-24 Weight 195 lbs 2013-02-24 Temperature 97.3 degrees Fahrenheit 2013-02-24 Heart Rate 60 bpm 2013-02-24 Respiratory Rate 18 2013-02-24 Blood pressure systolic 178 mmHg 2013-02-24 Blood pressure diastolic 92 mmHg 2013-02-24 MEDICATIONS No Known Medications RESULTS No Results PROCEDURES Procedure Date Ordered Result Body Site GLYCATED HEMOGLOBIN TEST Feb 24, 2013 INSTRUCTIONS MEDICATIONS ADMINISTERED No Known Medications [...] egd 01/2019 Hospitalization History surgeries Hospitalization History [facility] 06/2018 Hospitalization History [facility]- 07/2018 Hospitalization History [facility] v ch - heart attack and rehab -03/02/2019
--- OUTSIDE RECORDS SUMMARY | 2019-10-26 19:41 | XMS REPORT ---
Author Author Sarah Ruby Doctor Organization [facility] Address Unknown Phone Unavailable Care Team Providers Care Lens Cleaner Name Role Phone Migration, Doctor Unavailable Unavailable PROBLEMS Type Condition ICD9-CM Code YDW96-GN Code Onset Dates Condition S tatus SNOMED Code Problem Coronary artery disease invo lving [place] coronary artery of [place] heart without angina pectoris I25.10 Active 1641 751126741 Problem Hyperlipidemia, unspecified hyperlipidemia type E7 8.5 Active 50862726 Problem Paresthesias in right hand R20.2 Act chidi 240278183 Problem Neck pain M54.2 Active 95067074 Problem GERD (gastroesophageal reflux disease) K21.9 Active 954327716 Problem Essential hypertension I10 Active 69423213 Problem Chronic kidney disease, unspecified CKD stage N18. 9 Active 338271826 Problem Paroxysmal atrial fibrillation I48.0 Active 626112435 Problem Obesity (BMI 30-39.9) E66.9 Active 833757786 Problem Type 2 diabetes mellitus with other specified complication E11.69 Active 83352067 Problem Type 2 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, uns pecified E11.40 Active 45356093 Problem COPD (chronic obstructive pulmonary disease) J44.9 Active 25395499 Problem terminal gauger current use of insulin Z79.4 Active 957493055 Problem Morbid (severe) obesity due to excess calories E66 .01 Active 983206570 Problem Chronic kidney disease, stage 3 (moderate) N18.3 Active 025779455 Problem Other cirrhosis of liver K74.69 Activ e 25921231 Problem Chronic diastolic (congestive) heart failure I50.3 2 Active 422909959 ALLERGIES No Information ENCOUNTERS Encounter Location Date Diagnosis [facility] [address] [id number] [address] [place] [address] 15 Aug, 2019 Type 2 diabetes mellitus wit h diabetic neuropathy, unspecified E11.40 ; Neck pain M54.2 and Other cirrhosis of liver K74.69 [facility] [address] [facility] [id number] [address] [place] [address] Aug, [address] [id number] [place] [address] Aug, [facility] [address] [facility] [id number] [address] [place] [phone] Aug, [facility] [address] [facility] [id number] [address] [place] [address] Aug, [facility] [address] [facility] [id number] [address] [place] [address] July, [facility] [address] [facility] [id number] [address] [place] [address] July, Anemia due to acute blood lo ss D62 and Essential hypertension I10 [facility] [address] [facility] [id number] [address] [place] [address] July, [facility] [address] [facility] [id number] [address] [place] [address] July, [facility] [address] [facility] [id number] [address] [place] [address] July, [id number] [address] July, [id number] [address] Jun, [id number] [address] Jun, Chronic diastolic (congestiv e) heart failure I50.32 ; COPD (chronic obstructive pulmonary disease) J44.9 ; Dyspnea R06.00 and Weakness R53.[address] [place] [address] Jun, [facility] [address] [facility] [id number] [address] [place] [address] Jun, [facility] [address] [facility] [id number] [address] [place] [address] Jun, [facility] [address] [facility] [id number] [address] [place] [address] May, [facility] [address] [facility] [id number] [address] [place] [address] 23 May, 2019 Other cirrhosis of liver K74 .69 and Type 2 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, unspecified whether intermission coordinator insulin use E11.40 [facility] [address] [facility] [id number] [address] [place] [address] 16 May, 2019 [facility] [address] [facility] [id number] [address] [place] [address] 12 May, 2019 Type 2 diabetes mellitus wit h other specified complication E11.69 ; Other cirrhosis of liver K74.69 ; Chronic kidney disease, stage 3 (moderate) N18.3 ; Chronic diastolic (congestive) heart failure I50.32 ; Paroxysmal atrial fibrillation I48.0 ; Morbid (severe) obesity due to excess calories E66.01 and Hyperlipidemia, unspecified hyperlipidemia type E78.5 [facility] [address] [facility] [id number] [address] [place] [address] 11 May, [address] [id number], [place] [address] Apr, [facility] [address] [facility] [id number] [address] [place] [address] Mar, [facility] [address] [facility] [id number] [address] [place] [address] Mar, [facility] [address] [facility] [id number] [address] [place] [address] Mar, [facility] [address] [facility] [id number] [address] [place] [address] Mar, [facility] [address] [facility] [id number] [address] [place] [address] Mar, [address] [id number], [place] [address] Mar, [address] [id number] [address] Mar, [facility] [address] [id number] [address] [place] [address] Mar, [facility] [address] [id number] [address] [place] [address] Mar, [facility] [address] [id number] [address] [place] [address] Mar, [facility] [address] [id number] [address] [place] [address] Feb, [facility] [address] [id number] [address] [place] [address] Feb, Coronary artery disease invo lving [place] coronary artery of [place] heart without angina pectoris I25.10 ; Chronic kidney disease, stage 3 (moderate) N18.3 and Morbid (severe) obesity due to excess calories E66.01 [facility] [address] [id number] [address] [place] [address] Feb, [facility] [address] [id number] [address] [place] [address] Feb, [facility] [address] [id number] [address] [place] [address] Feb, [facility] [address] [id number] [address] [place] [address] Jan, [facility] [address] [id number] [address] [place] [address] Jan, [facility] [address] [id number] [address] [place] [address] Jan, [facility] [address] [id number] [address] [place] [address] Jan, [facility] [address] [id number] [address] [place] [address] Jan, [facility] [address] [id number] [address] [place] [address] Jan, [facility] [address] [id number] [address] [place] [address] Dec, [facility] [address] [id number] [place] [address] Dec, [facility] [address] [id number] [address] [place] [address] Nov, [facility] [address] [id number] [address] [place] [address] Nov, [facility] [address] [id number] [address] [place] [phone] Nov, [facility] [address] [id number] [address] [place] [address] Nov, [facility] [address] [id number] [place] [address] Oct, [facility] [address] [id number] [address] [place] [address] Oct, [facility] [address] [id number] [place] [address] Sep, [facility] [address] [id number] [address] [place] [address] Sep, [facility] [address] [facility] [id number] [address] [place] [address] Aug, Type 2 diabetes mellitus wit h unspecified complications E11.8 ; FCI current use of insulin Z79.4 and Obesity (BMI 30-39.9) E66.9 [facility] [address] [id number] [place] [address] Aug, Type 2 diabetes mellitus wit hout complications E11.9 [facility] [address] [id number] [place] [address] Aug, Type 2 diabetes mellitus wit hout complications E11.9 [facility] [address] [id number] [address] [place] [address] Aug, [address] [id number] [address] July, [employer]CI current use of ins ulin Z79.4 and Type 2 diabetes mellitus with unspecified complications E11.[address] [id number], [place] [address] July, Screening mammogram, encount er for Z12.31 [facility] [address] [id number] [address] [place] [address] July, [facility] [address] [id number] [address] [place] [address] July, Paroxysmal atrial fibrillati on I48.0 and Coronary artery disease involving [place] coronary artery of [place] heart without angina pectoris I25.10 [facility] [address] [id number] [address] [place] [address] Jun, [facility] [address] [id number] [address] [place] [address] Jun, [facility] [address] [id number] [address] [place] [address] May, [facility] [address] [facility] [id number] [address] [place] [address] May, Type 2 diabetes mellitus wit h unspecified complications E11.8 ; FCI current use of insulin Z79.4 ; Leg cramps R25.2 ; Essential hypertension I10 and Routine adult health maintenance Z00.00 [facility] [address] [id number] [address] [place] [address] Apr, [facility] [address] [id number] [address] [place] [address] Apr, [facility] [address] [id number] [address] [place] [address] Mar, Type 2 diabetes mellitus wit hout complications E11.9 [facility] [address] [facility] [id number] [address] [place] [address] Mar, Type 2 diabetes mellitus wit hout complications E11.9 [facility] [address] [facility] [id number] [address] [place] [address] Mar, Type 2 diabetes mellitus wit hout complications E11.9 [facility] [address] [facility] [id number] [address] [place] [address] Feb, Essential (primary) hyperten sofie I10 [facility] [address] [facility] [id number] [address] [place] [address] Feb, [facility] [address] [facility] [id number] [address] [place] [address] Jan, Type 2 diabetes mellitus wit hout complications E11.9 [facility] [address] [facility] [id number] [address] [place] [address] 30 Dec, 2017 [facility] [address] [facility] [id number] [address] [place] [address] Dec, Type 2 diabetes mellitus wit h diabetic neuropathy, unspecified E11.40 ; FCI current use of insulin Z79.4 and Chronic kidney disease, unspecified CKD stage N18.9 [facility] [address] [facility] [id number] [address] [place] [address] 15 Dec, 2017 Type 2 diabetes mellitus wit hout complications E11.9 [facility] [address] [facility] [id number] [address] [place] [address] Dec, [facility] [address] [facility] [id number] [address] [place] [address] Dec, Type 2 diabetes mellitus wit hout complications E11.9 [facility] [address] [facility] [id number] [address] [place] [address] 08 Dec, 2017 [facility] [address] [facility] [id number] [address] [place] [address] Oct, [facility] [address] [id number] [address] [place] [address] Sep, [facility] [address] [facility] [id number] [address] [place] [address] Aug, [facility] [address] [facility] [id number] [address] [place] [address] Aug, Exposure to hepatitis C Z20. 5 and Routine adult health maintenance Z00.00 [facility] [address] [facility] [id number] [address] [place] [address] 11 Aug, 2017 Exposure to hepatitis C Z20. 5 [facility] [address] [facility] [id number] [address] [place] [address] 11 Aug, 2017 Medicare annual wellness vis it, initial Z00.00 ; Coronary artery disease involving [place] coronary artery of [place] heart without angina pectoris I25.10 ; Hyperlipidemia, unspecified hyperlipidemia type E78.5 ; Essential hypertension I10 ; GERD (gastroesophageal reflux disease) K21.9 ; Routine adult health maintenance Z00.00 ; Encounter for immunization Z23 ; Type 2 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, unspecified E11.40 and terminal gauger current use of insulin Z79.4 [place] [address] [facility] [id number] [address] [place] [address] July, Type 2 diabetes mellitus wit hout complications E11.9 and Type 2 diabetes mellitus without complications E11.9 [facility] [address] [facility] [id number] [address] [place] [address] July, [facility] [address] [facility] [id number] [address] [place] [address] July, [facility] [address] [facility] [id number] [address] [place] [address] Mar, Type 2 diabetes mellitus wit hout complications E11.9 [facility] [address] [facility] [id number] [address] [place] [address] Mar, [facility] [address] [facility] [id number] [address] [place] [address] Feb, Type 2 diabetes mellitus wit hout complications E11.9 [facility] [address] [facility] [id number] [address] [place] [address] Jan, Type 2 diabetes mellitus wit hout complications E11.9 [facility] [address] [facility] [id number] [address] [place] [address] Jan, Type 2 diabetes mellitus wit hout complications E11.9 [facility] [address] [facility] [id number] [address] [place] [address] Nov, [facility] [address] [facility] [id number] [address] [place] [address] Oct, Type 2 diabetes mellitus wit hout complications E11.9 [facility] [address] [id number] [address] [place] [address] Oct, Type 2 diabetes mellitus wit hout complications E11.9 ; Essential hypertension I10 and Neck pain M54.2 [facility] [address] [facility] [id number] [address] [place] [address] Sep, [facility] [address] [facility] [id number] [address] [place] [address] Aug, Type 2 diabetes mellitus wit hout complications E11.9 [facility] [address] [id number] [address] [place] [address] Jun, Type 2 diabetes mellitus wit hout complications E11.9 ; Neck pain M54.2 and Essential hypertension I10 [facility] [address] [facility] [id number] [address] [place] [phone] Jun, [facility] [address] [facility] [id number] [address] [place] [address] Jun, [facility] [address] [id number] [address] [place] [phone] Jun, GERD (gastroesophageal reflu x disease) K21.9 and Type 2 diabetes mellitus without complications E11.9 [facility] [address] [id number] [address] [place] [address] Mar, Paresthesias in right hand R 20.2 [facility] [address] [id number] [address] [place] [address] Feb, Type 2 diabetes mellitus wit hout complications E11.9 [facility] [address] [id number] [address] [place] [id number] Feb, Encounter for dental examina tion Z01.20 [facility] [address] [id number] [address] [place] [address] Feb, Type 2 diabetes mellitus wit hout complications E11.9 and Neck pain M54.2 [facility] [address] [id number] [address] [place] [id number] Feb, Type 2 diabetes mellitus wit hout complications E11.9 [facility] [address] [id number] [address] [place] [address] [id number] Jan, Dental examination Z01.20 [facility] [address] [id number] [address] [place] [address] Jan, [facility] [address] [id number] [address] [place] [address] Jan, [facility] [address] [id number] [address] [place] [address] [id number] Dec, Dental caries K02.9 [facility] [address] [id number] [address] [place] [phone] Nov, [facility] [address] [id number] [address] [place] [address] Nov, [facility] [address] [id number] [address] [place] [address] Oct, Type 2 diabetes mellitus wit hout complications E11.9 ; Neck pain M54.2 and Essential hypertension I10 [facility] [address] [id number] [address] [place] [address] Oct, [facility] [address] [id number] [address] [place] [id number] Oct, Dental examination Z01.20 [facility] [address] [id number] [address] [place] [address] Sep, [facility] [address] [id number] [address] [place] [address] Sep, [facility] [address] [id number] [address] [place] [address] Aug, Essential (primary) hyperten sofie I10 [facility] [address] [id number] [address] [place] [address] Aug, [facility] [address] [facility] [id number] [address] [place] [id number] Aug, [facility] [address] [facility] [id number] [address] [place] [phone] July, Essential (primary) hyperten sofie I10 [facility] [address] [facility] [id number] [address] [place] [phone] July, Essential (primary) hyperten sofie I10 and Type 2 diabetes mellitus without complications E11.9 [facility] [address] [facility] [id number] [address] [place] [address] July, [facility] [address] [facility] [id number] [address] [place] [address] Jun, GERD (gastroesophageal reflu x disease) K21.9 [facility] [address] [facility] [id number] [address] [place] [address] Jun, GERD (gastroesophageal reflu x disease) K21.9 [facility] [address] [facility] [id number] [address] [place] [phone] Jun, [facility] [address] [facility] [id number] [address] [place] [phone] Jun, Neuropathy G62.9 [facility] [address] [facility] [id number] [address] [place] [phone] May, Essential (primary) hyperten sofie I10 [facility] [address] [facility] [id number] [address] [place] [phone] May, Bronchitis J40 [facility] [address] [facility] [id number] [address] [place] [phone] 15 May, 2015 Type 2 diabetes mellitus wit hout complications E11.9 and Essential (primary) hypertension I10 [facility] [address] [facility] [id number] [address] [place] [id number] May, [facility] [address] [facility] [id number] [address] [place] [id number] 10 May, 2015 GERD (gastroesophageal reflu x disease) K21.9 [facility] [address] [facility] [id number] [address] [place] [id number] 25 Apr, 2015 Other and unspecified hyperl ipidemia 272.4 ; Unspecified essential hypertension 401.9 ; Type 2 diabetes mellitus without complications E11.9 ; Neck pain M54.2 and Paresthesias in right hand R20.2 [facility] [address] [id number] [address] [place] [address] 11 Apr, 2015 [facility] [address] [id number] [address] [place] [address] Apr, Neuropathy G62.9 [facility] [address] [id number] [address] [place] [address] Mar, [facility] [address] [id number] [address] [place] [address] Feb, [facility] [address] [facility] [id number] [address] [place] [address] Jan, [facility] [id number] [place] [address] Dec, [facility] [id number] [place] [address] Dec, Type 2 diabetes mellitus wit hout complications E11.9 ; Encounter for immunization Z23 and Neck pain M54.2 [facility] [address] [facility] [id number] [address] [place] [address] Dec, [facility] [address] [facility] [id number] [address] [place] [address] Nov, [facility] [address] [facility] [id number] [address] [place] [address] Nov, [facility] [address] [facility] [id number] [address] [place] [address] Oct, [facility] [address] [facility] [id number] [address] [place] [address] Oct, [facility] [address] [facility] [id number] [address] [place] [address] Sep, [facility] [address] [id number] [address] [place] [address] Sep, Coronary atherosclerosis of unspecified type of vessel, [place] or graft 414.00 ; Diabetes mellitus without mention of complication, type II or unspecified type, not stated as uncontrolled 250.00 ; Hyperlipidemia 272.4 and HTN (hypertension) 401.9 [facility] [address] [facility] [id number] [address] [place] [address] Aug, [facility] [address] [id number] [address] [place] [address] July, [facility] [address] [facility] [id number] [address] [place] [address] Jun, [facility] [address] [facility] [id number] [address] [place] [address] Jun, [facility] [address] [facility] [id number] [address] [place] [address] May, [facility] [address] [facility] [id number] [address] [place] [address] May, [facility] [address] [id number] [address] [place] [address] May, [facility] [address] [id number] [address] [place] [address], [place] [address] May, [facility] [address] [id number] [address] [place] [address], [place] [address] Apr, [facility] [address] [id number] [address] [place] [address], [place] [address] Apr, 2014 [facility] [address] [id number] [address] [place] [address], [place] [address] Apr, 2014 [facility] [address] [id number] [address] [place] [address], [place] [address] Apr, 2014 [facility] [address] [id number] [address] [place] [address], [place] [address] Apr, [facility] [address] [id number] [address] [place] [address], [place] [address] Apr, [facility] [address] [id number] [address] [place] [address], [place] [address] Apr, [facility] [address] [id number] [address] [place] [address], [place] [address] Apr, [facility] [address] [id number] [address] [place] [address], [place] [address] Mar, [facility] [address] [id number] [address] [place] [address], [place] [address] Mar, [facility] [address] [id number] [address] [place] [address] Mar, [facility] [address] [id number] [address] [place] [address] Mar, [facility] [address] [id number] [address] [place] [address] Mar, [facility] [address] [id number] [address] [place] [address] Mar, [facility] [address] [id number] [address] [place] [address], [place] [address] Mar, [facility] [address] [id number] [address] [place] [address], [place] [address] Mar, [facility] [address] [id number] [address] [place] [address], [place] [address] Feb, [facility] [address] [id number] [address] [place] [address], [place] [address] Feb, [facility] [address] [id number] [address] [place] [address], [place] [address] Feb, [facility] [address] [id number] [address] [place] [address], [place] [address] Feb, [facility] [address] [id number] [address] [place] [address], [place] [address] Feb, [facility] [address] [id number] [address] [place] [address], [place] [address] Feb, [facility] [address] [id number] [address] [place] [address], [place] [address] Feb, [facility] [address] [id number] [address] [place] [address], [place] [address] Feb, [facility] [address] [id number] [address] [place] [address], [place] [address] Feb, [facility] [address] [id number] [address] [place] [address], [place] [address] Feb, [facility] [address] [id number] [address] [place] [address], [place] [address] Jan, [facility] [address] [id number] [address] [place] [address], [place] [address] Jan, [facility] [address] [id number] [address] [place] [address], [place] [address] Dec, [facility] [address] [id number] [address] [place] [address], [place] [address] Dec, [facility] [address] [id number] [address] [place] [address], [place] [address] Dec, [facility] [address] [id number] [address] [place] [address], [place] [address] Dec, [facility] [address] [id number] [address] [place] [address], [place] [address] Nov, [facility] [address] [id number] [address] [place] [address], [place] [address] Nov, [facility] [address] [id number] [address] [place] [address], [place] [address] Nov, [facility] [address] [id number] [address] [place] [address], [place] [address] Nov, [facility] [address] [id number] [address] [place] [address], [place] [address] Oct, [facility] [address] [id number] [address] [place] [address], [place] [address] Oct, [facility] [address] [id number] [address] [place] [address], [place] [address] Oct, [facility] [address] [id number] [address] [place] [address], [place] [address] Oct, [facility] [address] [id number] [address] [place] [address], [place] [address] Oct, [facility] [address] [id number] [address] [place] [address], [place] [address] Sep, [facility] [address] [id number] [address] [place] [address], [place] [address] Sep, [facility] [address] [id number] [address] [place] [address], [place] [address] Sep, [facility] [address] [id number] [address] [place] [address], [place] [address] Sep, [facility] [address] [id number] [address] [place] [address], [place] [address] Sep, [facility] [address] [id number] [address] [place] [address], [place] [address] Sep, [facility] [address] [id number] [address] [place] [address], [place] [address] Aug, [facility] [address] [id number] [address] [place] [address], [place] [address] Aug, [facility] [address] [id number] [address] [place] [address], [place] [address] Aug, [facility] [address] [id number] [address] [place] [address], [place] [address] Aug, [facility] [address] [id number] [address] [place] [address], [place] [address] Aug, [facility] [address] [id number] [address] [place] [address], [place] [address] Aug, [facility] [address] [id number] [address] [place] [address], [place] [address] July, [facility] [address] [id number] [address] [place] [address], [place] [address] July, [facility] [address] [id number] [address] [place] [address], [place] [address] Jun, [facility] [address] [id number] [address] [place] [address], [place] [address] Jun, [facility] [address] [id number] [address] [place] [address], [place] [address] May, [facility] [address] [id number] [address] [place] [address], [place] [address] May, [facility] [address] [id number] [address] [place] [address], [place] [address] May, [facility] [address] [id number] [address] [place] [address], [place] [address] May, [facility] [address] [id number] [address] [place] [address], [place] [address] Apr, 2013 [facility] [address] [id number] [address] [place] [address], [place] [address] Apr, [facility] [address] [id number] [address] [place] [address], [place] [address] Apr, 2013 [facility] [address] [id number] [address] [place] [address], [place] [address] Apr, [facility] [address] [id number] [address] [place] [address], [place] [address] Apr, [facility] [address] [id number] [address] [place] [address], [place] [address] Apr, [facility] [address] [id number] [address] [place] [address], [place] [address] Feb, [facility] [address] [id number] [address] [place] [address], [place] [address] Feb, [facility] [address] [id number] [address] [place] [address], [place] [address] Feb, [facility] [address] [id number] [address] [place] [address], [place] [address] Feb, [facility] [address] [id number] [address] [place] [address], [place] [address] Jan, [facility] [address] [id number] [address] [place] [address], [place] [address] Jan, [facility] [address] [id number] [address] [place] [address], [place] [address] Dec, [facility] [address] [id number] [address] [place] [address], [place] [address] Dec, [facility] [address] [id number] [address] [place] [address], [place] [address] Dec, [facility] [address] [id number] [address] [place] [address], [place] [address] Dec, [facility] [address] [id number] [address] [place] [address], [place] [address] Oct, [facility] [address] [id number] [address] [place] [address], [place] [id number] Oct, [facility] [address] [id number] [facility] [id number] Oct, [facility] [address] [id number] [address] [place] [address], [place] [address] Oct, [facility] [address] [id number] [address] [place] [address], [place] [address] Sep, [facility] [address] [id number] [address] [place] [address], [place] [address] Sep, [facility] [address] [id number] [address] [place] [address], [place] [address] Aug, [facility] [address] [id number] [address] [place] [address], [place] [address] Aug, [facility] [address] [id number] [address] [place] [address], [place] [address] Aug, [facility] [address] [id number] [address] [place] [address], [place] [address] Aug, [facility] [address] [id number] [address] [place] [address], [place] [address] July, [facility] [address] [id number] [address] [place] [address], [place] [address] Jun, [facility] [address] [id number] [address] [place] [address], [place] [address] May, [facility] [address] [id number] [address] [place] [address], [place] [address] May, [facility] [address] [id number] [address] [place] [address], [place] [address] May, [facility] [address] [id number] [address] [place] [address], [place] [address] 05 May, 2012 [facility] [address] [id number] [address] [place] [address], [place] [address] May, [facility] [address] [id number] [address] [place] [address], [place] [address] Apr, [facility] [address] [id number] [address] [place] [address], [place] [address] Apr, [facility] [address] [id number] [address] [place] [address], [place] [address] Apr, [facility] [address] [id number] [address] [place] [address], [place] [address] Apr, [facility] [address] [id number] [address] [place] [address], [place] [address] Mar, [facility] [address] [id number] [address] [place] [address], [place] [address] Mar, [facility] [address] [id number] [address] [place] [address], [place] [address] Mar, [facility] [address] [id number] [address] [place] [address], [place] [address] Mar, [facility] [address] [id number] [address] [place] [address], [place] [address] 16 Jan, 2012 [facility] [address] [id number] [address] [place] [address], [place] [address] 16 Jan, 2012 [facility] [address] [id number] [address] [place] [address], [place] [address] 15 Jan, 2012 [facility] [address] [id number] [address] [place] [address], [place] [address] 15 Jan, 2012 [facility] [address] [id number] [address] [place] [address], [place] [address] 07 Jan, 2012 [facility] [address] [id number] [address] [place] [address] Jan, [facility] [address] [id number] [address] [place] [address] Jan, [facility] [address] [id number] [address] [place] [address] Jan, [facility] [address] [id number] [address] [place] [address] Jan, [facility] [address] [id number] [address] [place] [address] Jan, [facility] [address] [id number] [address] [place] [address] Dec, [facility] [address] [id number] [address] [place] [address] Dec, [facility] [address] [id number] [address] [place] [address] Dec, [facility] [address] [id number] [address] [place] [address] Nov, [facility] [address] [id number] [address] [place] [address] Nov, [facility] [address] [id number] [address] [place] [address] Nov, [facility] [address] [id number] [address] [place] [address] Nov, [facility] [address] [id number] [address] [place] [address] Oct, [facility] [address] [id number] [address] [place] [address] Oct, IMMUNIZATIONS No Known Immunizations SOCIAL HISTORY [...] egd 01/2019 Hospitalization History surgeries Hospitalization History [facility] 06/2018 Hospitalization History [facility] 07[facility]2018 [facility] heart attack and rehab -03/02/2019
--- OUTSIDE RECORDS SUMMARY | 2019-10-26 19:53 | XMS REPORT | Continuity of Care Document ---
Demographics Preferred Language Unknown Marital Status Unknown Yarsanism Affiliation Unknown Race Unknown Ethnic Group Unknown Author Organization Unknown Address Unknown Phone Unavailable Allergies Active Description Code Type Severity Reaction Onset Reported/Identified Relationship to Patient Clinical Status Yes MORPHINE UNKNOWN UNKNOWN Yes No Known Drug Allergies [id number] Drug Allergy Unknown N/A 11/13/2011 Yes morphine [id number] Drug Allergy Severe hallucination 07/25/2019 Yes amiodarone [id number] Drug Allerg y Moderate Shortness of Br 08/22/2019 Medications Medication Packaging Start Date St op [...] 08/25/2019 Daily&0900 MultiVits (Thera M Plus) (mu [id number]) oral tablet TAB 07/27/2019 08/25/2019 Daily&0900 FISH [...] 11/16/2011 Ot 414.01 COR ONARY ATHEROSCLEROSIS OF FALSE P[place] CORON 11/16/2011 Ot 530.81 ESO PHAGEAL REFLUX [...] DO, JUSTICE K 414.00 CAD 12/16/2011 MELINDA CORN MILLER, VAN A 250.02 DIABETES II UNCONTROLLED (UNCOMPLICATED) 12/16/2011 MELINDA CORN MILLER, VAN A 40 1.9 HYPERTENSION, UNSPECIFIED ESSENTIAL 12/16/2011 MELINDA CORN MILLER, VAN A 414.00 CAD 12/16/2011 WHITE DDS, [...] AMADO MD 414.0 0 CAD 12/16/2011 NINI CORN MILLER, LALITO L 250 .02 DIABETES II UNCONTROLLED [...] (3 YRS AND ABOVE, IM) 01/14/2012 NINI CORN MILLER, LALITO L V04 .81 FLU DX (3 [...] DO, JUSTICE K 272.4 HYPERLIPIDEMIA 04/13/2012 MELINDA CORN MILLER, VAN A 27 2.4 HYPERLIPIDEMIA 04/13/2012 WHITE DDS, IBAN D 27 2.4 HYPERLIPIDEMIA 04/13/2012 GEE AMADO MD 272.4 HYPERLIPIDEMIA 04/13/2012 GEE AMADO MD 272.4 HYPERLIPIDEMIA 04/13/2012 NINI BREEN, LALITO L 272 .4 HYPERLIPIDEMIA 04/13/2012 GEE [...] 250.00 GIA BETES MELLITUS POORLY CONTROLLED 05/10/2012 SUSANNAH BANUELOSSIBNA D 250.00 DIABETES MELLITUS POORLY CONTROLLED 05/10/2012 [...] 357.2 POLY NEUROPATHY IN DIABETES 10/10/2012 SUSANNAH BANUELOSSIBAN D 35 7.2 POLYNEUROPATHY IN DIABETES 10/10/2012 SUSANNAH BANUELOSSIBAN D 35 7.2 POLYNEUROPATHY IN DIABETES 10/10/2012 GEE AMADO MD 357.2 POLYNEUROPATHY IN DIABETES 10/10/2012 MAURO DOLAN JUSTICE K 357.2 POLYNEUROPATHY IN DIABETES 10/10/2012 IBAN DAVALOS DDS 35 7.2 POLYNEUROPATHY IN DIABETES 10/10/2012 GEE AMADO MD 357.2 POLYNEUROPATHY IN DIABETES 10/10/2012 JOELLE DAVALOS DDS 35 7.2 POLYNEUROPATHY IN DIABETES 10/10/2012 WADE ARUNA DOLANA K 357.2 POLYNEUROPATHY IN DIABETES 10/10/2012 ARUNA WADE DOA K 357.2 POLYNEUROPATHY IN DIABETES 10/10/2012 VAN [...] MD Ot 414. 01 CORONARY ATHEROSCLEROSIS OF FALSE [place] CORON 08/28/2013 BOOM MILLER MD Ot 786. 50 CHEST PAIN NOS 08/28/2013 BOOM MILLER MD Ot V45. 82 PERCUTANEOUS TRANSLUM CORON ANGIOPLASTY 10/23/2013 VAN LAWRENCE APRN A V76.10 BREAST CANCER SCREENING 10/23/2013 IBAN DAVALOS [...] VIVIANA K Ot 401.9 08/16/2014 JEFRY FLOREZ, VIVIANA K Ot 414.00 08/16/2014 JEFRY FLOREZ, VIVIANA K Ot 786.50 08/16/2014 VAN LAWRENCE APRN Ot V76.12 02/27/2015 JEFRY FLOREZ, VIVIANA K Ot 250.00 02/27/2015 JEFRY FLOREZ, VIVIANA K Ot 272.4 02/27/2015 JEFRY FLOREZ VIVIANA K Ot 401.9 02/27/2015 JEFRY FLOREZ, VIVIANA K Ot 414.00 02/27/2015 JEFRY FLOREZ VIVIANA K Ot 786.50 02/27/2015 VAN LAWRENCE [...] Ot I25. 10 ATHSCL HEART DISEASE OF [place] CORONARY 03/13/2015 BOOM MILLER MD Ot R07. 89 OTHER CHEST PAIN 03/13/2015 BOOM MILLER MD, Ot Z68. 35 BODY MASS INDEX (BMI) 35.0-35.9, ADULT 03/13/2015 BOOM MILLER MD Ot Z79. 4 LONG-TERM (CURRENT) USE OF INSULIN 03/13/2015 BOOM MILLER MD, Ot Z79.899 OTHER ZONE SUPERVISOR FIREARMS (CURRENT) DRUG THERAPY 03/13/2015 PAUL MARAVILLA, BOOM French Ot Z98. 61 CORONARY ANGIOPLASTY STATUS 03/21/2015 BOOM MILLER MD Ot E78. 5 03/21/2015 BOOM MILLER MD Ot I10 03/21/2015 BOOM MILLER MD Ot I25. 10 03/21/2015 BOOM MILLER MD Ot R07. 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 5 HYPERLIPIDEMIA, UNSPECIFIED 02/22/2017 BOOM MILLER MD Ot I10 ESSENTIAL (PRIMARY) HYPERTENSION 02/22/2017 BOOM MILLER MD Ot I25. 10 ATHSCL HEART DISEASE OF [place] CORONARY 02/22/2017 BOOM MILLER MD Ot R07. 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 10 ATHSCL HEART DISEASE OF [place] CORONARY 03/06/2017 BOOM MILLER MD Ot Z79. 84 ZONE SUPERVISOR FIREARMS (CURRENT) USE OF ORAL HYPOGLYC 03/17/2017 BOOM [...] Ot I25. 10 ATHSCL HEART DISEASE OF [place] CORONARY 03/25/2017 BOOM MILLER MD Ot I48. 91 UNSPECIFIED ATRIAL FIBRILLATION 03/26/2017 BOOM MILLER MD Ot E78. 5 HYPERLIPIDEMIA, UNSPECIFIED 03/26/2017 BOOM MILLER MD Ot I10 ESSENTIAL (PRIMARY) HYPERTENSION 03/26/2017 BOOM MILLER MD Ot I25. 10 ATHSCL HEART DISEASE OF [place] CORONARY 03/26/2017 BOOM MILLER MD Ot I48. [...] Ot I25. 10 ATHSCL HEART DISEASE OF [place] CORONARY 04/01/2017 BOOM MILLER MD Ot I48. 91 UNSPECIFIED ATRIAL FIBRILLATION 04/01/2017 BOOM MILLER MD Ot R06. 83 SNORING 04/01/2017 BOOM MILLER MD Ot Z68. 35 BODY MASS INDEX (BMI) 35.0-35.9, ADULT 04/01/2017 BOOM MILLER MD Ot Z79. 4 LONG-TERM (CURRENT) USE OF INSULIN 04/01/2017 BOOM MILLER MD Ot Z79. 82 ZONE SUPERVISOR FIREARMS (CURRENT) USE OF ASPIRIN 04/01/2017 BOOM MILLER MD Ot Z79.899 OTHER ZONE SUPERVISOR FIREARMS (CURRENT) DRUG THERAPY 04/01/2017 BOOM MILLER MD [...] Ot I25. 10 ATHSCL HEART DISEASE OF [place] CORONARY 04/02/2017 BOOM MILLER MD Ot R07. 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 10 ATHSCL HEART DISEASE OF [place] CORONARY 04/02/2017 BOOM MILLER MD Ot I48. 91 UNSPECIFIED ATRIAL FIBRILLATION 04/02/2017 BOOM MILLER MD Ot R06. 83 SNORING 04/02/2017 BOOM MILLER MD Ot Z68. 35 BODY MASS INDEX (BMI) 35.0-35.9, ADULT 04/02/2017 BOOM MILLER MD Ot Z79. 4 LONG-TERM (CURRENT) USE OF INSULIN 04/02/2017 BOOM MILLER MD Ot Z79. 82 ZONE SUPERVISOR FIREARMS (CURRENT) USE OF ASPIRIN 04/02/2017 BOOM MILLER MD Ot Z79.899 OTHER LONG-TERM (CURRENT) DRUG THERAPY 04/02/2017 BOOM MILLER MD [...] Ot I25. 10 ATHSCL HEART DISEASE OF [place] CORONARY 04/20/2017 BOOM MILLER MD Ot I48. 91 UNSPECIFIED ATRIAL FIBRILLATION 04/20/2017 BOOM MILLER MD Ot R06. 83 SNORING 04/20/2017 BOOM MILLER MD Ot Z68. 35 BODY MASS INDEX (BMI) 35.0-35.9, ADULT 04/20/2017 BOOM MILLER MD Ot Z79. 4 LONG-TERM (CURRENT) USE OF INSULIN 04/20/2017 BOOM MILLER MD Ot Z79. 82 ZONE SUPERVISOR FIREARMS (CURRENT) USE OF ASPIRIN 04/20/2017 BOOM MILLER MD Ot Z79.899 OTHER ZONE SUPERVISOR FIREARMS (CURRENT) DRUG THERAPY 04/20/2017 BOOM MILLER MD [...] Ot I25. 10 ATHSCL HEART DISEASE OF [place] CORONARY 09/24/2017 BOOM MILLER MD Ot R07. 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 10 ATHSCL HEART DISEASE OF [place] CORONARY 09/24/2017 BOOM MILLER MD Ot I48. 91 UNSPECIFIED ATRIAL FIBRILLATION 09/24/2017 BOOM MILLER MD Ot R06. 83 SNORING 09/24/2017 BOOM MILLER MD Ot Z68. 35 BODY MASS INDEX (BMI) 35.0-35.9, ADULT 09/24/2017 BOOM MILLER MD Ot Z79. 4 ZONE SUPERVISOR FIREARMS (CURRENT) USE OF INSULIN 09/24/2017 BOOM MILLER MD Ot Z79. 82 ZONE SUPERVISOR FIREARMS (CURRENT) USE OF ASPIRIN 09/24/2017 BOOM MILLER MD Ot Z79.899 OTHER LONG-TERM (CURRENT) DRUG THERAPY 09/24/2017 BOOM MILLER MD Ot Z95. 5 PRESENCE OF CORONARY ANGIOPLASTY IMPLANT 09/24/2017 BOOM MILLER MD Ot I48. 91 UNSPECIFIED ATRIAL FIBRILLATION 09/24/2017 INGRIS MARAVILLA, GEE Farrar Ot Z12.31 ENCNTR SCREEN MAMMOGRAM FOR MALIGNANT [...] Ot I25. 10 ATHSCL HEART DISEASE OF FALSE [place] CORONARY 01/14/2018 BOOM MILLER MD Ot I48. 91 UNSPECIFIED ATRIAL FIBRILLATION 01/14/2018 BOOM MILLER MD Ot R06. 83 SNORING 01/14/2018 BOOM MILLER MD Ot Z68. 35 BODY MASS INDEX (BMI) 35.0-35.9, ADULT 01/14/2018 BOOM MILLER MD Ot Z79. 4 LONG-TERM (CURRENT) USE OF INSULIN 01/14/2018 BOOM MILLER MD Ot Z79. 82 LONG-TERM (CURRENT) USE OF ASPIRIN 01/14/2018 BOOM MILLER MD Ot Z79.899 OTHER LONG-TERM (CURRENT) DRUG THERAPY 01/14/2018 BOOM MILLER MD [...] Ot I25. 10 ATHSCL HEART DISEASE OF [place] CORONARY 01/14/2018 BOOM MILLER MD Ot I48. 91 UNSPECIFIED ATRIAL FIBRILLATION 01/14/2018 BOOM MILLER MD Ot R06. 83 SNORING 01/14/2018 BOOM MILLER MD Ot Z68. 35 BODY MASS INDEX (BMI) 35.0-35.9, ADULT 01/14/2018 BOOM MILLER MD Ot Z79. 4 ZONE SUPERVISOR FIREARMS (CURRENT) USE OF INSULIN 01/14/2018 BOOM MILLER MD Ot Z79. 82 ZONE SUPERVISOR FIREARMS (CURRENT) USE OF ASPIRIN 01/14/2018 BOOM MILLER MD Ot Z79.899 OTHER LONG-TERM (CURRENT) DRUG THERAPY 01/14/2018 BOOM MILLER MD [...] 02/07/2018 BOOM MILLER MD Ot Z79. 01 ZONE SUPERVISOR FIREARMS (CURRENT) USE OF ANTICOAGULANT 02/28/2018 BOOM MILLER MD Ot I48. 0 PAROXYSMAL ATRIAL FIBRILLATION 02/28/2018 BOOM MILLER MD, Ot Z51. 81 ENCOUNTER FOR THERAPEUTIC DRUG LEVEL MON 02/28/2018 BOOM MILLER MD Ot Z79. 01 ZONE SUPERVISOR FIREARMS (CURRENT) USE OF ANTICOAGULANT 03/02/2018 BOOM MILLER MD, Ot I48. 0 PAROXYSMAL ATRIAL FIBRILLATION 03/02/2018 [...] COTTO Ot 786.50 CHEST PAIN NOS 03/09/2018 MELINDA VAN A CORN MILLER Ot V76.12 OTH SCREEN MAMMO-MALIGN NEOPLASM OF [place] 03/09/2018 BOOM MILLER MD Ot E78. 5 HYPERLIPIDEMIA, UNSPECIFIED 03/09/2018 BOOM MILLER MD Ot I10 ESSENTIAL (PRIMARY) HYPERTENSION 03/09/2018 BOOM MILLER MD Ot I25. 10 ATHSCL HEART DISEASE OF [place] CORONARY 03/09/2018 BOOM MILLER MD Ot R07. 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 10 ATHSCL HEART DISEASE OF [place] CORONARY 03/09/2018 BOOM MILLER MD Ot I48. 91 UNSPECIFIED ATRIAL FIBRILLATION 03/09/2018 BOOM MILLER MD Ot R06. 83 SNORING 03/09/2018 BOOM MILLER MD Ot Z68. 35 BODY MASS INDEX (BMI) 35.0-35.9, ADULT 03/09/2018 BOOM MILLER MD Ot Z79. 4 LONG-TERM (CURRENT) USE OF INSULIN 03/09/2018 BOOM MILLER MD Ot Z79. 82 LONG-TERM (CURRENT) USE OF ASPIRIN 03/09/2018 BOOM MILLER MD Ot Z79.899 OTHER LONG-TERM (CURRENT) DRUG THERAPY 03/09/2018 BOOM MILLER MD Ot Z95. 5 PRESENCE OF CORONARY ANGIOPLASTY IMPLANT 03/09/2018 BOOM MILLER MD Ot I48. 91 UNSPECIFIED ATRIAL FIBRILLATION 03/09/2018 BOOM MILLER MD Ot I48. 0 PAROXYSMAL ATRIAL FIBRILLATION 03/09/2018 BOOM MILLER MD Ot Z51. 81 ENCOUNTER FOR THERAPEUTIC DRUG LEVEL MON 03/09/2018 BOOM MILLER MD Ot Z79. 01 LONG-TERM (CURRENT) USE OF ANTICOAGULANT 03/09/2018 BOOM MILLER [...] Ot I25. 10 ATHSCL HEART DISEASE OF [place] CORONARY 03/09/2018 BOOM MILLER MD Ot I35. 0 NONRHEUMATIC AORTIC (VALVE) STENOSIS 03/09/2018 BOOM MILLER MD Ot I48. 0 PAROXYSMAL ATRIAL FIBRILLATION 03/09/2018 BOOM MILLER MD Ot R07. 9 CHEST PAIN, UNSPECIFIED 03/09/2018 BOOM MILLER MD Ot Z68. 37 BODY MASS INDEX (BMI) 37.0-37.9, ADULT 03/09/2018 BOOM MILLER MD Ot Z79. 4 ZONE SUPERVISOR FIREARMS (CURRENT) USE OF INSULIN 03/09/2018 BOOM MILLER MD Ot Z79.899 OTHER LONG-TERM (CURRENT) DRUG THERAPY 03/09/2018 BOOM MILLER MD [...] Ot I25. 10 ATHSCL HEART DISEASE OF [place] CORONARY 03/11/2018 BOOM MILLER MD Ot I35. 0 NONRHEUMATIC AORTIC (VALVE) STENOSIS 03/11/2018 BOOM MILLER MD Ot I48. 0 PAROXYSMAL ATRIAL FIBRILLATION 03/11/2018 BOOM MILLER MD Ot R07. 9 CHEST PAIN, UNSPECIFIED 03/11/2018 BOOM MILLER MD Ot Z68. 37 BODY MASS INDEX (BMI) 37.0-37.9, ADULT 03/11/2018 BOOM MILLER MD Ot Z79. 4 ZONE SUPERVISOR FIREARMS (CURRENT) USE OF INSULIN 03/11/2018 BOOM MILLER MD Ot Z79.899 OTHER ZONE SUPERVISOR FIREARMS (CURRENT) DRUG THERAPY 03/11/2018 BOOM MILLER MD, Ot Z87.891 PERSONAL HISTORY OF NICOTINE DEPENDENCE 03/11/2018 BOOM MILLER MD Ot Z95. 5 PRESENCE OF CORONARY ANGIOPLASTY IMPLANT 03/31/2018 BOOM MILLER MD Ot Z79. 01 ZONE SUPERVISOR FIREARMS (CURRENT) USE OF ANTICOAGULANT 04/18/2018 BOOM MILLER MD Ot Z79. 01 ZONE SUPERVISOR FIREARMS (CURRENT) USE OF ANTICOAGULANT 05/05/2018 BOOM MILLER MD Ot I48. 0 PAROXYSMAL ATRIAL FIBRILLATION 05/05/2018 BOOM MILLER MD Ot Z79. 01 LONG-TERM (CURRENT) USE OF ANTICOAGULANT 05/30/2018 BOOM MILLER MD Ot I48. 0 PAROXYSMAL ATRIAL FIBRILLATION 05/30/2018 BOOM MILLER MD Ot Z79. 01 LONG-TERM (CURRENT) USE OF ANTICOAGULANT 06/06/2018 BOOM MILLER MD Ot I48. 0 PAROXYSMAL ATRIAL FIBRILLATION 06/06/2018 BOOM MILLER MD Ot Z79. 01 LONG-TERM (CURRENT) USE OF ANTICOAGULANT 07/11/2018 BOOM MILLER MD Ot I48. 0 PAROXYSMAL ATRIAL FIBRILLATION 07/11/2018 BOOM MILLER MD Ot Z79. 01 ZONE SUPERVISOR FIREARMS (CURRENT) USE OF ANTICOAGULANT 07/12/2018 BOOM MILLER MD Ot I48. 0 PAROXYSMAL ATRIAL FIBRILLATION 07/12/2018 BOOM MILLER MD Ot Z79. 01 ZONE SUPERVISOR FIREARMS (CURRENT) USE OF ANTICOAGULANT 07/12/2018 MICHAEL DE [...] Ot I25. 10 ATHSCL HEART DISEASE OF FALSE [place] CORONARY 07/12/2018 MICHAEL DE LA GARZA MD [...] DE LA GARZA MD Ot Z79. 01 LONG-TERM (CURRENT) USE OF ANTICOAGULANT 07/12/2018 MICHAEL DE LA GARZA MD Ot Z79. 02 LONG-TERM (CURRENT) USE OF ANTITHROMBOTI 07/12/2018 MICHAEL DE LA GARZA MD Ot Z79. 4 LONG-TERM (CURRENT) USE OF INSULIN 07/12/2018 MICHAEL DE LA GARZA MD Ot Z79. 82 ZONE SUPERVISOR FIREARMS (CURRENT) USE OF ASPIRIN 07/12/2018 MICHAEL DE [...] Ot I25. 10 ATHSCL HEART DISEASE OF FALSE [place] CORONARY 07/14/2018 MICHAEL DE LA GARZA MD [...] DE LA GARZA MD Ot Z79. 01 LONG-TERM (CURRENT) USE OF ANTICOAGULANT 07/14/2018 MICHAEL DE LA GARZA MD Ot Z79. 02 ZONE SUPERVISOR FIREARMS (CURRENT) USE OF ANTITHROMBOTI 07/14/2018 MICHAEL DE LA GARZA MD Ot Z79. 4 LONG-TERM (CURRENT) USE OF INSULIN 07/14/2018 MICHAEL DE LA GARZA MD, Ot Z79. 82 LONG-TERM (CURRENT) USE OF ASPIRIN 07/14/2018 MICHAEL DE [...] MD Ot 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 07/23/2018 Jaime GARSIA MD Ot I48 [...] ADULT 07/23/2018 Jaime GARSIA MD, Ot Z79.01 LONG-TERM (CURRENT) USE OF ANTICOAGULANT 07/23/2018 Jaime GARSIA [...] MD Ot 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 07/24/2018 Jaime GARSIA MD Ot I48 [...] ADULT 07/24/2018 Jaime GARSIA MD Ot Z79.01 LONG-TERM (CURRENT) USE OF ANTICOAGULANT 07/24/2018 Jaime GARSIA [...] MD, Ot 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 07/24/2018 Jaime GARSIA MD Ot I48 .0 PAROXYSMAL ATRIAL FIBRILLATION 07/24/2018 Jaime GARSIA MD, Ot I95 .2 [...] ADULT 07/24/2018 Jaime GARSIA MD Ot Z79.01 ZONE SUPERVISOR FIREARMS (CURRENT) USE OF ANTICOAGULANT 07/24/2018 Jaime GARSIA [...] MD, Ot 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 07/24/2018 Jaime GARSIA MD, Ot I48 [...] ADULT 07/24/2018 Jaime GARSIA MD Ot Z79.01 ZONE SUPERVISOR FIREARMS (CURRENT) USE OF ANTICOAGULANT 07/24/2018 Jaime GARSIA MD, Ot Z79 .4 ZONE SUPERVISOR FIREARMS (CURRENT) USE OF INSULIN 07/24/2018 Jaime GARSIA [...] Ot I25. 10 ATHSCL HEART DISEASE OF [place] CORONARY 12/15/2018 MICHAEL DE LA GARZA MD [...] DE LA GARZA MD Ot Z79. 01 LONG-TERM (CURRENT) USE OF ANTICOAGULANT 12/15/2018 MICHAEL DE LA GARZA MD Ot Z79. 02 LONG-TERM (CURRENT) USE OF ANTITHROMBOTI 12/15/2018 MICHAEL DE LA GARZA MD Ot Z79. 4 ZONE SUPERVISOR FIREARMS (CURRENT) USE OF INSULIN 12/15/2018 MICHAEL DE LA GARZA MD Ot Z79. 82 ZONE SUPERVISOR FIREARMS (CURRENT) USE OF ASPIRIN 12/15/2018 MICHAEL DE [...] DO Ot E78.00 PURE HYPERCHOLESTEROLEMIA, UNSPECIFIED 01/13/2019 ZACK LOPEZ DO Ot E78.5 HYPERLIPIDEMIA, UNSPECIFIED 01/13/2019 ZACK LOPEZ DO Ot E83.39 OTHER DISORDERS [...] DO Ot 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 01/13/2019 ZACK LOPEZ DO Ot I25.2 [...] ADULT 01/13/2019 ZACK LOPEZ DO Ot Z79.01 LONG-TERM (CURRENT) USE OF ANTICOAGULANT 01/13/2019 ZACK LOPEZ DO Ot Z79.82 ZONE SUPERVISOR FIREARMS (CURRENT) USE OF ASPIRIN 01/13/2019 ZACK LOPEZ DO Ot Z87.89 1 PERSONAL HISTORY OF NICOTINE DEPENDENCE 01/13/2019 ZACK LOPEZ DO Ot Z91.19 PATIENT'S NONCOMPLIANCE W [facility] 01/13/2019 ZACK LOPEZ DO Ot Z95.5 PRESENCE OF CORONARY ANGIOPLASTY IMPLANT 01/13/2019 ZACK LOPEZ DO Ot Z99.81 DEPENDENCE ON SUPPLEMENTAL OXYGEN 01/19/2019 WILTON LOPEZ DOI Ot E11.9 TYPE 2 DIABETES MELLITUS WITHOUT COMPLIC 01/19/2019 JESSICA DOLAN ZACK Ot E66.9 OBESITY, UNSPECIFIED 01/19/2019 ZACK LOPEZ DO Ot E78.5 HYPERLIPIDEMIA, UNSPECIFIED 01/19/2019 JESSICA DOLAN ZACK Ot E83.39 OTHER DISORDERS OF [...] DO Ot 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 01/19/2019 JESSICA DOLAN ZACK Ot I25.2 OLD MYOCARDIAL INFARCTION 01/19/2019 ZACK LOPEZ DO Ot I27.20 PULMONARY HYPERTENSION, UNSPECIFIED 01/19/2019 ZACK LOPEZ DO Ot I34.0 NONRHEUMATIC MITRAL (VALVE) INSUFFICIENC 01/19/2019 JESSICA DOLAN ZACK Ot I48.0 PAROXYSMAL ATRIAL FIBRILLATION 01/19/2019 ZACK LOPEZ DO Ot I50.31 ACUTE DIASTOLIC (CONGESTIVE) HEART FAILU 01/19/2019 ZACK LOPEZ DO Ot J44.1 CHRONIC OBSTRUCTIVE PULMONARY DISEASE W 01/19/2019 ZACK LOPEZ DO Ot J96.01 ACUTE RESPIRATORY FAILURE WITH HYPOXIA 01/19/2019 WILTON LOPEZ DOI Ot K21.9 GASTRO-ESOPHAGEAL REFLUX DISEASE WITHOUT 01/19/2019 JESSICA DOLAN ZACK Ot N17.9 ACUTE KIDNEY FAILURE, UNSPECIFIED 01/19/2019 ZACK LOPEZ DO Ot N18.9 CHRONIC KIDNEY DISEASE, UNSPECIFIED 01/19/2019 ZACK LOPEZ DO Ot Z68.41 BODY MASS INDEX (BMI) 40.0-44.9, ADULT 01/19/2019 ZACK LOPEZ DO Ot Z79.01 ZONE SUPERVISOR FIREARMS (CURRENT) USE OF ANTICOAGULANT 01/19/2019 ZACK LOPEZ DO Ot Z79.82 LONG-TERM (CURRENT) USE OF ASPIRIN 01/19/2019 WILTON LOPEZ DOI Ot Z87.89 1 PERSONAL HISTORY OF NICOTINE DEPENDENCE 01/19/2019 ZACK LOPEZ DO Ot Z91.19 PATIENT'S NONCOMPLIANCE W [facility] 01/19/2019 ZACK LOPEZ DO Ot Z95.5 PRESENCE OF CORONARY ANGIOPLASTY IMPLANT 01/19/2019 ZACK LOPEZ DO Ot Z99.81 DEPENDENCE ON SUPPLEMENTAL OXYGEN 01/19/2019 WILTON LOPEZ DOI Ot E11.9 TYPE 2 DIABETES MELLITUS WITHOUT COMPLIC 01/19/2019 ZACK LOPEZ DO Ot E66.9 OBESITY, UNSPECIFIED 01/19/2019 WILTON LOPEZ DOI Ot E78.5 HYPERLIPIDEMIA, UNSPECIFIED 01/19/2019 JESSICA DOLAN ZACK Ot E83.39 OTHER DISORDERS OF PHOSPHORUS METABOLISM 01/19/2019 WILTON LOPEZ DOI Ot G47.33 OBSTRUCTIVE SLEEP APNEA (ADULT) (PEDIATR 01/19/2019 WILTON LOPEZ DOI Ot G89.29 OTHER CHRONIC PAIN 01/19/2019 WILTON LOPEZ DOI Ot I13.0 HYP HRT CHR KDNY DIS W HRT FAIL AND ST 01/19/2019 ZACK LOPEZ DO Ot I21.A1 MYOCARDIAL INFARCTION TYPE 2 01/19/2019 JESSICA DOLAN ZACK Ot 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 01/19/2019 WILTON LOPEZ DOI Ot I25.2 OLD MYOCARDIAL INFARCTION 01/19/2019 JESSICA DOLAN ZACK Ot I27.20 PULMONARY HYPERTENSION, UNSPECIFIED 01/19/2019 JESSICA DOLAN ZACK Ot I34.0 NONRHEUMATIC MITRAL (VALVE) INSUFFICIENC 01/19/2019 JESSICA DOLAN ZACK Ot I48.0 PAROXYSMAL ATRIAL FIBRILLATION 01/19/2019 JESSICA DOLAN ZACK Ot I50.31 ACUTE DIASTOLIC (CONGESTIVE) HEART FAILU 01/19/2019 ZACK LOPEZ DO Ot J44.1 CHRONIC OBSTRUCTIVE PULMONARY DISEASE W 01/19/2019 ZACK LOPEZ DO Ot J96.01 ACUTE RESPIRATORY FAILURE WITH HYPOXIA 01/19/2019 ZACK LOPEZ DO Ot K21.9 GASTRO-ESOPHAGEAL REFLUX DISEASE WITHOUT 01/19/2019 ZACK LOPEZ DO Ot N17.9 ACUTE KIDNEY FAILURE, UNSPECIFIED 01/19/2019 ZACK LOPEZ DO Ot N18.9 CHRONIC KIDNEY DISEASE, UNSPECIFIED 01/19/2019 ZACK LOPEZ DO Ot Z68.41 BODY MASS INDEX (BMI) 40.0-44.9, ADULT 01/19/2019 ZACK LOPEZ DO Ot Z79.01 ZONE SUPERVISOR FIREARMS (CURRENT) USE OF ANTICOAGULANT 01/19/2019 ZAKC LOPEZ DO Ot Z79.82 ZONE SUPERVISOR FIREARMS (CURRENT) USE OF ASPIRIN 01/19/2019 ZACK LOPEZ DO Ot Z87.89 1 PERSONAL HISTORY OF NICOTINE DEPENDENCE 01/19/2019 ZACK LOPEZ DO Ot Z91.19 PATIENT'S NONCOMPLIANCE W [facility] 01/19/2019 ZACK LOPEZ DO Ot Z95.5 PRESENCE OF CORONARY ANGIOPLASTY IMPLANT 01/19/2019 ZACK LOPEZ DO Ot Z99.81 DEPENDENCE ON SUPPLEMENTAL OXYGEN 01/19/2019 ZACK LOPEZ DO Ot E11.9 TYPE 2 DIABETES MELLITUS WITHOUT COMPLIC 01/19/2019 ZACK LOPEZ DO Ot E66.9 OBESITY, UNSPECIFIED 01/19/2019 ZACK LOPEZ DO Ot E78.5 HYPERLIPIDEMIA, UNSPECIFIED 01/19/2019 ZACK LOPEZ [...] DO Ot 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 01/19/2019 ZACK LOPEZ DO Ot I25.2 [...] ADULT 01/19/2019 ZACK LOPEZ DO Ot Z79.01 LONG-TERM (CURRENT) USE OF ANTICOAGULANT 01/19/2019 ZACK LOPEZ DO Ot Z79.82 ZONE SUPERVISOR FIREARMS (CURRENT) USE OF ASPIRIN 01/19/2019 WILTON LOPEZ DOI Ot Z87.89 1 PERSONAL HISTORY OF NICOTINE DEPENDENCE 01/19/2019 ZACK LOPEZ DO Ot Z91.19 PATIENT'S NONCOMPLIANCE W [facility] 01/19/2019 ZACK LOPEZ DO Ot Z95.5 PRESENCE OF CORONARY ANGIOPLASTY IMPLANT 01/19/2019 ZACK LOPEZ DO Ot Z99.81 DEPENDENCE ON SUPPLEMENTAL OXYGEN 01/19/2019 WILTON LOPEZ DOI Ot E11.9 TYPE 2 DIABETES MELLITUS WITHOUT COMPLIC 01/19/2019 JESSICA DOLAN ZACK Ot E66.9 OBESITY, UNSPECIFIED 01/19/2019 WILTON LOPEZ DOI Ot E78.5 HYPERLIPIDEMIA, UNSPECIFIED 01/19/2019 WILTON LOPEZ DOI Ot E83.39 OTHER DISORDERS OF PHOSPHORUS METABOLISM 01/19/2019 WILTON LOPEZ DOI Ot G47.33 OBSTRUCTIVE SLEEP APNEA (ADULT) (PEDIATR 01/19/2019 ZACK LPOEZ DO Ot G89.29 OTHER CHRONIC PAIN 01/19/2019 ZACK LOPEZ DO Ot I13.0 HYP HRT CHR [place] DIS W HRT FAIL AND ST 01/19/2019 ZACK LOPEZ DO Ot I21.A1 MYOCARDIAL INFARCTION TYPE 2 01/19/2019 ZACK LOPEZ DO Ot 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 01/19/2019 ZACK LOPEZ DO Ot I25.2 OLD MYOCARDIAL INFARCTION 01/19/2019 ZACK LOPEZ DO Ot I27.20 PULMONARY HYPERTENSION, UNSPECIFIED 01/19/2019 ZACK LOPEZ DO Ot I34.0 NONRHEUMATIC MITRAL (VALVE) INSUFFICIENC 01/19/2019 JESSICA DOLAN ZACK Ot I48.0 PAROXYSMAL ATRIAL FIBRILLATION 01/19/2019 ZACK [...] N18.9 CHRONIC KIDNEY DISEASE, UNSPECIFIED 01/19/2019 ZACK LPOEZ DO Ot Z68.41 BODY MASS INDEX (BMI) 40.0-44.9, ADULT 01/19/2019 ZACK LOPEZ DO Ot Z79.01 LONG-TERM (CURRENT) USE OF ANTICOAGULANT 01/19/2019 ZACK LOPEZ DO Ot Z79.82 ZONE SUPERVISOR FIREARMS (CURRENT) USE OF ASPIRIN 01/19/2019 AZCK LOPEZ DO Ot Z87.89 1 PERSONAL HISTORY OF NICOTINE DEPENDENCE 01/19/2019 ZACK LOPEZ DO Ot Z91.19 PATIENT'S NONCOMPLIANCE W [facility] 01/19/2019 ZACK LOPEZ DO [...] DO Ot G89.29 OTHER CHRONIC PAIN 01/19/2019 WILTON LOPEZ DOI Ot I13.0 HYP HRT CHR [place] DIS W HRT FAIL AND ST 01/19/2019 ZACK LOPEZ DO Ot I21.A1 MYOCARDIAL INFARCTION TYPE 2 01/19/2019 WILTON LOPEZ DOI Ot 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 01/19/2019 ZACK LOPEZ DO Ot I25.2 OLD MYOCARDIAL INFARCTION 01/19/2019 WILTON LOPEZ DOI Ot I27.20 PULMONARY HYPERTENSION, UNSPECIFIED 01/19/2019 WILTON LOPEZ DOI Ot I34.0 NONRHEUMATIC MITRAL (VALVE) INSUFFICIENC [...] ADULT 01/19/2019 ZACK LOPEZ DO Ot Z79.01 ZONE SUPERVISOR FIREARMS (CURRENT) USE OF ANTICOAGULANT 01/19/2019 ZACK LOPEZ DO Ot Z79.82 ZONE SUPERVISOR FIREARMS (CURRENT) USE OF ASPIRIN 01/19/2019 ZACK LOPEZ DO Ot Z87.89 1 PERSONAL HISTORY OF NICOTINE DEPENDENCE 01/19/2019 ZACK LOPEZ DO Ot Z91.19 PATIENT'S NONCOMPLIANCE W [facility] 01/19/2019 LOPEZ DO, ZACK Ot Z95.5 PRESENCE OF CORONARY ANGIOPLASTY IMPLANT 01/19/2019 JESSICA DOLAN ZACK Ot Z99.81 DEPENDENCE ON SUPPLEMENTAL OXYGEN 01/28/2019 ZACK LOPEZ DO Ot E11.21 TYPE 2 DIABETES MELLITUS WITH DIABETIC N 01/28/2019 JESSICA DOLAN ZACK Ot E11.65 TYPE 2 DIABETES MELLITUS WITH HYPERGLYCE 01/28/2019 JESSICA DOLAN ZACK Ot E66.9 OBESITY, UNSPECIFIED 01/28/2019 WILTON LOPEZ DOI Ot E78.5 HYPERLIPIDEMIA, UNSPECIFIED 01/28/2019 JESSICA DOLAN ZACK Ot E88.81 METABOLIC SYNDROME 01/28/2019 JESSICA DOLAN ZACK Ot F32.9 MAJOR DEPRESSIVE DISORDER, SINGLE EPISOD 01/28/2019 WILTON LOPEZ DOI Ot F41.9 ANXIETY DISORDER, UNSPECIFIED 01/28/2019 JESSICA DOLAN ZACK Ot G47.33 OBSTRUCTIVE SLEEP APNEA (ADULT) (PEDIATR 01/28/2019 JESSICA DOLAN ZACK Ot G72.89 OTHER SPECIFIED MYOPATHIES 01/28/2019 WILTON LOPEZ DOI Ot I12.9 HYPERTENSIVE CHRONIC KIDNEY DISEASE W ST 01/28/2019 WILTON LOPEZ DOI Ot I21.A1 MYOCARDIAL INFARCTION TYPE 2 01/28/2019 WILTON LOPEZ DOI Ot 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 01/28/2019 JESSICA DOLAN ZACK Ot I48.0 PAROXYSMAL ATRIAL FIBRILLATION 01/28/2019 WILTON LOPEZ DOI Ot I49.5 SICK SINUS SYNDROME 01/28/2019 WILTON LOPEZ DOI Ot J44.9 CHRONIC OBSTRUCTIVE PULMONARY DISEASE, U 01/28/2019 WILTON LOPEZ DOI Ot K21.9 GASTRO-ESOPHAGEAL REFLUX DISEASE WITHOUT 01/28/2019 JESSICA DOLAN ZACK Ot K59.09 OTHER CONSTIPATION 01/28/2019 JESSICA DOLAN ZACK Ot M16.11 UNILATERAL PRIMARY OSTEOARTHRITIS, RIGHT 01/28/2019 JESSICA DOLAN ZACK Ot M51.37 OTHER INTERVERTEBRAL DISC DEGENERATION, 01/28/2019 JESSICA DOLAN ZACK Ot M70.61 TROCHANTERIC BURSITIS, RIGHT HIP 01/28/2019 JESSICA DOLAN ZACK Ot N18.9 CHRONIC KIDNEY DISEASE, UNSPECIFIED 01/28/2019 JESSICA DOLAN ZACK Ot T38.0X 5A ADVERSE EFFECT OF GLUCOCORT/SYNTH ANALOG 01/28/2019 ZACK LOPEZ DO Ot T82.85 5D STENOSIS OF CORONARY ARTERY STENT, SUBSE 01/28/2019 ZACK LOPEZ DO Ot Z68.37 BODY MASS INDEX (BMI) 37.0-37.9, ADULT 01/28/2019 ZACK LOPEZ DO, Ot Z79.01 ZONE SUPERVISOR FIREARMS (CURRENT) USE OF ANTICOAGULANT 01/28/2019 ZACK LOPEZ DO Ot Z79.4 LONG-TERM (CURRENT) USE OF INSULIN 01/28/2019 ZACK LOPEZ DO Ot Z86.71 1 PERSONAL HISTORY OF PULMONARY EMBOLISM 01/28/2019 ZACK LOPEZ DO Ot Z87.89 1 PERSONAL HISTORY OF NICOTINE DEPENDENCE 01/28/2019 ZACK LOPEZ DO Ot Z95.5 PRESENCE OF CORONARY ANGIOPLASTY IMPLANT 02/05/2019 ALEXA SOLIZ MD Ot E11. 9 TYPE [...] Ot I25. 10 ATHSCL HEART DISEASE OF [place] CORONARY 02/05/2019 ALEXA SOLIZ MD, Ot I48. 91 UNSPECIFIED ATRIAL FIBRILLATION 02/05/2019 ALEXA SOLIZ MD, Ot I95. 89 OTHER HYPOTENSION 02/05/2019 ALEXA SOLIZ MD, Ot J44. 9 CHRONIC OBSTRUCTIVE PULMONARY DISEASE, U 02/05/2019 ALEXA SOLIZ MD, Ot K21. 9 GASTRO-ESOPHAGEAL REFLUX DISEASE WITHOUT 02/05/2019 ALEXA SOLIZ MD, Ot R00. 1 BRADYCARDIA, UNSPECIFIED 02/05/2019 ALEXA SOLIZ MD, Ot Z79. 01 LONG-TERM (CURRENT) USE OF ANTICOAGULANT 02/05/2019 ALEXA SOLIZ MD, Ot Z79. 4 ZONE SUPERVISOR FIREARMS (CURRENT) USE OF INSULIN 02/05/2019 ALEXA SOLIZ MD, Ot Z79. 82 ZONE SUPERVISOR FIREARMS (CURRENT) USE OF ASPIRIN 02/05/2019 ALEXA SOLIZ MD, Ot Z79.899 OTHER LONG-TERM (CURRENT) DRUG THERAPY 02/05/2019 ALEXA SOLIZ MD, [...] Ot I25. 10 ATHSCL HEART DISEASE OF [place] CORONARY 02/07/2019 ALEXA SOLIZ MD, Ot I48. 91 UNSPECIFIED ATRIAL FIBRILLATION 02/07/2019 ALEXA SOLIZ MD, Ot I95. 89 OTHER HYPOTENSION 02/07/2019 ALEXA SOLIZ MD, Ot J44. 9 CHRONIC OBSTRUCTIVE PULMONARY DISEASE, U 02/07/2019 ALEXA SOLIZ MD, Ot K21. 9 GASTRO-ESOPHAGEAL REFLUX DISEASE WITHOUT 02/07/2019 ALEXA SOLIZ MD, Ot R00. 1 BRADYCARDIA, UNSPECIFIED 02/07/2019 ALEXA SOLIZ MD, Ot Z79. 01 ZONE SUPERVISOR FIREARMS (CURRENT) USE OF ANTICOAGULANT 02/07/2019 ALEXA SOLIZ MD, Ot Z79. 4 ZONE SUPERVISOR FIREARMS (CURRENT) USE OF INSULIN 02/07/2019 ALEXA SOLIZ MD, Ot Z79. 82 ZONE SUPERVISOR FIREARMS (CURRENT) USE OF ASPIRIN 02/07/2019 ALEXA SOLIZ [...] Ot I25. 10 ATHSCL HEART DISEASE OF FALSE [place] CORONARY 02/13/2019 ALEXA SOLIZ MD, Ot I48. 91 UNSPECIFIED ATRIAL FIBRILLATION 02/13/2019 ALEXA SOLIZ MD, Ot I95. 89 OTHER HYPOTENSION 02/13/2019 ALEXA SOLIZ MD, Ot J44. 9 CHRONIC OBSTRUCTIVE PULMONARY DISEASE, U 02/13/2019 ALEXA SOLIZ MD, Ot K21. 9 GASTRO-ESOPHAGEAL REFLUX DISEASE WITHOUT 02/13/2019 ALEXA SOLIZ MD, Ot R00. 1 BRADYCARDIA, UNSPECIFIED 02/13/2019 ALEXA SOLIZ MD, Ot Z79. 01 LONG-TERM (CURRENT) USE OF ANTICOAGULANT 02/13/2019 ALEXA SOLIZ MD, Ot Z79. 4 ZONE SUPERVISOR FIREARMS (CURRENT) USE OF INSULIN 02/13/2019 ALEXA SOLIZ MD, Ot Z79. 82 ZONE SUPERVISOR FIREARMS (CURRENT) USE OF ASPIRIN 02/13/2019 ALEXA SOLIZ [...] Ot I25. 10 ATHSCL HEART DISEASE OF FALSE [place] CORONARY 02/15/2019 ALEXA SOLIZ MD, Ot I48. 91 UNSPECIFIED ATRIAL FIBRILLATION 02/15/2019 ALEXA SOLIZ MD, Ot I95. 89 OTHER HYPOTENSION 02/15/2019 ALEXA SOLIZ MD, Ot J44. 9 CHRONIC OBSTRUCTIVE PULMONARY DISEASE, U 02/15/2019 ALEXA SOLIZ MD, Ot K21. 9 GASTRO-ESOPHAGEAL REFLUX DISEASE WITHOUT 02/15/2019 ALEXA SOLIZ MD, Ot R00. 1 BRADYCARDIA, UNSPECIFIED 02/15/2019 ALEXA SOLIZ MD, Ot Z79. 01 LONG-TERM (CURRENT) USE OF ANTICOAGULANT 02/15/2019 ALEXA SOLIZ MD, Ot Z79. 4 LONG-TERM (CURRENT) USE OF INSULIN 02/15/2019 ALEXA SOLIZ MD, Ot Z79. 82 LONG-TERM (CURRENT) USE OF ASPIRIN 02/15/2019 ALEXA SOLIZ MD, Ot Z79.899 OTHER LONG-TERM (CURRENT) DRUG THERAPY 02/15/2019 ALEXA SOLIZ MD, [...] Ot I25. 10 ATHSCL HEART DISEASE OF FALSE [place] CORONARY 02/24/2019 ALEXA SOLIZ MD, Ot I48. 91 UNSPECIFIED ATRIAL FIBRILLATION 02/24/2019 ALEXA SOLIZ MD, Ot I95. 89 OTHER HYPOTENSION 02/24/2019 ALEXA SOLIZ MD, Ot J44. 9 CHRONIC OBSTRUCTIVE PULMONARY DISEASE, U 02/24/2019 ALEXA SOLIZ MD, Ot K21. 9 GASTRO-ESOPHAGEAL REFLUX DISEASE WITHOUT 02/24/2019 ALEXA SOLIZ MD, Ot R00. 1 BRADYCARDIA, UNSPECIFIED 02/24/2019 ALEXA SOLIZ MD, Ot Z79. 01 ZONE SUPERVISOR FIREARMS (CURRENT) USE OF ANTICOAGULANT 02/24/2019 ALEXA SOLIZ MD, Ot Z79. 4 LONG-TERM (CURRENT) USE OF INSULIN 02/24/2019 ALEXA SOLIZ MD, Ot Z79. 82 LONG-TERM (CURRENT) USE OF ASPIRIN 02/24/2019 ALEXA SOLIZ MD, Ot Z79.899 OTHER LONG-TERM (CURRENT) DRUG THERAPY 02/24/2019 ALEXA SOLIZ MD, Ot Z82. 49 FAMILY HX OF ISCHEM HEART DIS AND OTH DI 02/24/2019 ALEXA SOLIZ MD Ot Z86.711 PERSONAL HISTORY OF PULMONARY EMBOLISM 02/24/2019 ALEXA SOLIZ MD, Ot Z87.891 PERSONAL HISTORY OF NICOTINE DEPENDENCE 02/24/2019 ALEXA SOLIZ MD, Ot Z90.710 ACQUIRED ABSENCE OF BOTH CERVIX AND UTER 02/24/2019 ALEXA SOLIZ MD Ot Z95. 5 PRESENCE OF CORONARY ANGIOPLASTY IMPLANT 02/24/2019 ALEXA SOLIZ MD, Ot Z99. 89 DEPENDENCE ON OTHER ENABLING MACHINES AN 02/24/2019 JESSICA DOLAN ZACK Ot D64.9 ANEMIA, UNSPECIFIED 02/24/2019 JESSICA DOLAN ZACK Ot E11.9 TYPE 2 DIABETES MELLITUS WITHOUT COMPLIC 02/24/2019 JESSICA DOLAN ZACK Ot E66.2 MORBID (SEVERE) OBESITY WITH ALVEOLAR HY 02/24/2019 JESSICA DOLAN ZACK Ot E78.5 HYPERLIPIDEMIA, UNSPECIFIED 02/24/2019 JESSICA DOLAN ZACK Ot F41.9 ANXIETY DISORDER, UNSPECIFIED 02/24/2019 JESSICA DOLAN ZACK Ot G72.81 CRITICAL ILLNESS MYOPATHY 02/24/2019 JESSICA DOLAN ZACK Ot G93.40 ENCEPHALOPATHY, UNSPECIFIED 02/24/2019 JESSICA DOLAN ZACK Ot I07.1 RHEUMATIC TRICUSPID INSUFFICIENCY 02/24/2019 JESSICA DOLAN ZACK Ot I12.9 HYPERTENSIVE CHRONIC KIDNEY DISEASE W ST 02/24/2019 JESSICA DOLAN ZACK Ot 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 02/24/2019 JESSICA DOLAN ZACK Ot I48.0 PAROXYSMAL ATRIAL FIBRILLATION 02/24/2019 JESSICA DOLAN ZACK Ot I49.5 SICK SINUS SYNDROME 02/24/2019 JESSICA DOLAN ZACK Ot I65.23 OCCLUSION AND STENOSIS OF BILATERAL LEAL 02/24/2019 JESSICA DOLAN ZACK Ot J44.9 CHRONIC OBSTRUCTIVE PULMONARY DISEASE, U 02/24/2019 JESSICA DOLAN ZACK Ot K21.9 GASTRO-ESOPHAGEAL REFLUX DISEASE WITHOUT 02/24/2019 JESSICA DOLAN ZACK Ot M19.91 PRIMARY OSTEOARTHRITIS, UNSPECIFIED SITE 02/24/2019 LOPEZ DO, ZACK Ot 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 02/24/2019 ZACK LOPEZ DO Ot N17.9 ACUTE KIDNEY FAILURE, UNSPECIFIED 02/24/2019 ZACK LOPEZ DO Ot N18.9 CHRONIC KIDNEY DISEASE, UNSPECIFIED 02/24/2019 ZACK LOPEZ DO Ot Z79.4 LONG-TERM (CURRENT) USE OF INSULIN 02/24/2019 ZACK LOPEZ DO Ot Z87.01 PERSONAL HISTORY OF PNEUMONIA (RECURRENT 02/24/2019 ZACK LOPEZ DO Ot Z87.09 PERSONAL HISTORY OF OTHER DISEASES OF TH 02/24/2019 WILTON LOPEZ DOI Ot Z87.89 1 PERSONAL HISTORY OF NICOTINE DEPENDENCE 02/24/2019 ZACK LOPEZ DO Ot Z90.49 ACQUIRED ABSENCE OF OTHER SPECIFIED PART 02/24/2019 ZACK LOPEZ DO Ot Z90.71 0 ACQUIRED ABSENCE OF BOTH CERVIX AND UTER 02/24/2019 ZACK LOPEZ DO Ot Z95.5 PRESENCE OF CORONARY ANGIOPLASTY IMPLANT 02/24/2019 ZACK LOPEZ DO Ot Z99.81 DEPENDENCE ON SUPPLEMENTAL OXYGEN 02/27/2019 [...] Ot I25. 10 ATHSCL HEART DISEASE OF [place] CORONARY 02/27/2019 ALEXA SOLIZ MD, Ot I48. 91 UNSPECIFIED ATRIAL FIBRILLATION 02/27/2019 ALEXA SOLIZ MD, Ot I95. 89 OTHER HYPOTENSION 02/27/2019 ALEXA SOLIZ MD, Ot J44. 9 CHRONIC OBSTRUCTIVE PULMONARY DISEASE, U 02/27/2019 ALEXA SOLIZ MD, Ot K21. 9 GASTRO-ESOPHAGEAL REFLUX DISEASE WITHOUT 02/27/2019 ALEXA SOLIZ MD, Ot R00. 1 BRADYCARDIA, UNSPECIFIED 02/27/2019 ALEXA SOLIZ MD, Ot Z79. 01 LONG-TERM (CURRENT) USE OF ANTICOAGULANT 02/27/2019 ALEXA SOLIZ MD, Ot Z79. 4 ZONE SUPERVISOR FIREARMS (CURRENT) USE OF INSULIN 02/27/2019 ALEXA SOLIZ MD, Ot Z79. 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 5 HYPERLIPIDEMIA, UNSPECIFIED 03/01/2019 BOOM MILLER MD Ot I10 ESSENTIAL (PRIMARY) HYPERTENSION 03/01/2019 BOOM MILLER MD Ot I25. 10 ATHSCL HEART DISEASE OF [place] CORONARY 03/01/2019 BOOM MILLER MD Ot R07. 89 OTHER CHEST PAIN 03/01/2019 Ot E78.5 HYPE RLIPIDEMIA, UNSPECIFIED 03/01/2019 Ot 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 03/01/2019 Ot I10 ESSENT IAL (PRIMARY) HYPERTENSION 03/01/2019 Ot I25.10 ATH SCL HEART DISEASE OF FALSE [place] CORONARY 03/01/2019 ALVIN MARAVILLA, XANDER Topete Ot M54.12 RADICULOPATHY, CERVICAL REGION 03/01/2019 ALVIN MARAVILLA, XANDER Topete Ot Z98 .1 ARTHRODESIS STATUS 03/01/2019 ROSALIO [...] Ot I25. 10 ATHSCL HEART DISEASE OF [place] CORONARY 03/01/2019 BOOM MILLER MD Ot I48. 91 UNSPECIFIED ATRIAL FIBRILLATION 03/01/2019 BOOM MILLER MD Ot R06. 83 SNORING 03/01/2019 BOOM MILLER MD Ot Z68. 35 BODY MASS INDEX (BMI) 35.0-35.9, ADULT 03/01/2019 BOOM MILLER MD Ot Z79. 4 LONG-TERM (CURRENT) USE OF INSULIN 03/01/2019 BOOM MILLER MD Ot Z79. 82 LONG-TERM (CURRENT) USE OF ASPIRIN 03/01/2019 BOOM MILLER MD Ot Z79.899 OTHER ZONE SUPERVISOR FIREARMS (CURRENT) DRUG THERAPY 03/01/2019 BOOM MILLER MD Ot Z95. 5 PRESENCE OF CORONARY ANGIOPLASTY IMPLANT 03/01/2019 BOOM MILLER MD Ot I48. 0 PAROXYSMAL ATRIAL FIBRILLATION 03/01/2019 BOOM MILLER MD Ot Z51. 81 ENCOUNTER FOR THERAPEUTIC DRUG LEVEL MON 03/01/2019 BOOM MILLER MD, Ot I48. 0 PAROXYSMAL ATRIAL FIBRILLATION 03/01/2019 BOOM MILLER MD, Ot Z79. 01 ZONE SUPERVISOR FIREARMS (CURRENT) USE OF ANTICOAGULANT 03/01/2019 ILANA SANTAMARIA MD Ot I70.2 13 ATHSCL FALSE P[place] ARTERIES OF [facility] 03/06/2019 ILANA SANTAMARIA MD Ot I70.2 13 ATHSCL FALSE P[place] ARTERIES OF [facility] 03/10/2019 ILANA SANTAMARIA MD Ot I70.9 0 UNSPECIFIED ATHEROSCLEROSIS 03/23/2019 ILANA SANTAMARIA MD Ot I70.2 13 ATHSCL FALSE P[place] ARTERIES OF EXTR W INTRIL 03/28/2019 ILANA SANTAMARIA MD Ot I70.9 0 UNSPECIFIED ATHEROSCLEROSIS 03/31/2019 ILANA SANTAMARIA MD Ot I70.9 0 UNSPECIFIED ATHEROSCLEROSIS 03/31/2019 ILANA SANTAMARIA MD Ot I70.9 0 UNSPECIFIED ATHEROSCLEROSIS 04/03/2019 ILANA SANTAMARIA MD Ot I70.9 0 UNSPECIFIED ATHEROSCLEROSIS 04/10/2019 ILANA SANTAMARIA MD Ot I70.9 0 UNSPECIFIED ATHEROSCLEROSIS 04/19/2019 IMER, LETTY E CORN MILLER Ot G47.33 OBSTRUCTIVE SLEEP APNEA (ADULT) (PEDIATR 04/19/2019 IMER, LETTY E CORN MILLER Ot J30.9 ALLERGIC RHINITIS, UNSPECIFIED 04/19/2019 IMER, LETTY E CORN MILLER Ot J44.9 CHRONIC OBSTRUCTIVE PULMONARY DISEASE, U 04/19/2019 IMER, LETTY E CORN MILLER Ot J81.1 CHRONIC PULMONARY EDEMA 04/19/2019 IMER, LETTY E CORN MILLER Ot K74.60 UNSPECIFIED CIRRHOSIS OF LIVER 04/19/2019 IMER, LETTY E CORN MILLER Ot R16.1 SPLENOMEGALY, NOT ELSEWHERE CLASSIFIED 04/19/2019 IMER, LETTY E CORN MILLER Ot R18.8 OTHER ASCITES 04/19/2019 IMER, LETTY E CORN MILLER Ot Z95.818 PRESENCE OF OTHER CARDIAC IMPLANTS AND G 05/02/2019 ILANA SANTAMARIA MD Ot I70.9 0 UNSPECIFIED ATHEROSCLEROSIS 05/16/2019 IMER, LETTY E CORN MILLER Ot G47.33 OBSTRUCTIVE SLEEP APNEA (ADULT) (PEDIATR 05/16/2019 IMER, LETTY E CORN MILLER Ot J30.9 ALLERGIC RHINITIS, UNSPECIFIED 05/16/2019 IMER, LETTY E CORN MILLER Ot J44.9 CHRONIC OBSTRUCTIVE PULMONARY DISEASE, U 05/16/2019 IMER, LETTY E CORN MILLER Ot J81.1 CHRONIC PULMONARY EDEMA 05/16/2019 IMER, LETTY E CORN MILLER Ot K74.60 UNSPECIFIED CIRRHOSIS OF LIVER 05/16/2019 IMER, LETTY E CORN MILLER Ot R16.1 SPLENOMEGALY, NOT ELSEWHERE CLASSIFIED 05/16/2019 IMER, LETTY E CORN MILLER Ot R18.8 OTHER ASCITES 05/16/2019 IMER, LETTY E CORN MILLER Ot Z95.818 PRESENCE OF OTHER CARDIAC IMPLANTS AND G 06/19/2019 BOOM MILLER MD Ot E78. 5 HYPERLIPIDEMIA, UNSPECIFIED 06/19/2019 BOOM MILLER MD Ot I10 ESSENTIAL (PRIMARY) HYPERTENSION 06/19/2019 BOOM MILLER MD Ot I25. 10 ATHSCL HEART DISEASE OF FALSE [place] CORONARY 06/19/2019 BOOM MILLER MD Ot R07. 89 OTHER CHEST PAIN 06/19/2019 Ot E78.5 HYPE RLIPIDEMIA, UNSPECIFIED 06/19/2019 Ot 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 06/19/2019 Ot I10 ESSENT IAL (PRIMARY) HYPERTENSION 06/19/2019 Ot I25.10 ATH SCL HEART DISEASE OF FALSE [place] CORONARY 06/19/2019 XADNER ESQUIVEL MD Ot M54.12 RADICULOPATHY, CERVICAL REGION [...] Ot I25. 10 ATHSCL HEART DISEASE OF FALSE [place] CORONARY 06/19/2019 BOOM MILLER MD Ot I48. 91 UNSPECIFIED ATRIAL FIBRILLATION 06/19/2019 BOOM MILLER MD Ot R06. 83 SNORING 06/19/2019 BOOM MILLER MD Ot Z68. 35 BODY MASS INDEX (BMI) 35.0-35.9, ADULT 06/19/2019 BOOM MILLER MD Ot Z79. 4 ZONE SUPERVISOR FIREARMS (CURRENT) USE OF INSULIN 06/19/2019 BOOM MILLER MD Ot Z79. 82 LONG-TERM (CURRENT) USE OF ASPIRIN 06/19/2019 BOOM MILLER MD Ot Z79.899 OTHER ZONE SUPERVISOR FIREARMS (CURRENT) DRUG THERAPY 06/19/2019 BOOM MILLER MD Ot Z95. 5 PRESENCE OF CORONARY ANGIOPLASTY IMPLANT 06/19/2019 BOOM MILLER MD Ot I48. 0 PAROXYSMAL ATRIAL FIBRILLATION 06/19/2019 BOOM MILLER MD Ot Z51. 81 ENCOUNTER FOR THERAPEUTIC DRUG LEVEL MON 06/19/2019 BOOM MILLER MD, Ot I48. 0 PAROXYSMAL ATRIAL FIBRILLATION 06/19/2019 BOOM MILLER MD Ot Z79. 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 06/19/2019 ILANA [...] SPLENOMEGALY, NOT ELSEWHERE CLASSIFIED 06/19/2019 LETTY WILLAMS CORN MILLER Ot R18.8 OTHER ASCITES 06/19/2019 LETTY WILLAMS [...] MD Ot 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 07/21/2019 DOMENICA SMITH MD Ot I48.91 [...] ENCOUNTER 07/21/2019 DOMENICA SMITH MD, Ot Y92.[address] IN [facility] NON-INSTITUT (PRIVATE 07/21/2019 DOMENICA SMITH MD, Ot Z79 .4 LONG-TERM (CURRENT) USE OF INSULIN 07/21/2019 DOMENICA SMITH [...] D64 .9 ANEMIA, UNSPECIFIED 07/22/2019 DOMENICA SMITH MD Ot E11 .9 TYPE 2 DIABETES MELLITUS WITHOUT COMPLIC 07/22/2019 DOMENICA SMITH MD Ot E66 .2 MORBID (SEVERE) OBESITY WITH ALVEOLAR HY 07/22/2019 DOMENICA SMITH MD Ot E78.00 PURE HYPERCHOLESTEROLEMIA, UNSPECIFIED 07/22/2019 DOMENICA SMITH MD, Ot G47.30 SLEEP APNEA, UNSPECIFIED 07/22/2019 DOMENICA SMITH MD, Ot I11 .0 HYPERTENSIVE HEART DISEASE WITH HEART FA 07/22/2019 DOMENICA SMITH MD, Ot 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 07/22/2019 DOMENICA SMITH MD Ot I48.91 UNSPECIFIED ATRIAL FIBRILLATION 07/22/2019 DOMENICA [...] ENCOUNTER 07/22/2019 DOMENICA SMITH MD, Ot Y92.009 [facility] IN [facility] NON-INSTIT[facility] (PRIVATE 07/22/2019 DOMENICA SMITH MD, Ot Z79 .4 LONG-TERM (CURRENT) USE OF INSULIN 07/22/2019 DOMENICA SMITH [...] MD Ot 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 07/23/2019 DOMENICA SMITH MD Ot I48.91 [...] ENCOUNTER 07/23/2019 DOMENICA SMITH MD Ot Y92.[address] IN [facility] NON-INSTITUT (PRIVATE 07/23/2019 DOMENICA SMITH MD, Ot Z79 .4 ZONE SUPERVISOR FIREARMS (CURRENT) USE OF INSULIN 07/23/2019 DOMENICA SMITH [...] DIABETES MELLITUS WITHOUT COMPLIC 07/23/2019 DOMENICA SMITH MD, Ot E66 .2 MORBID (SEVERE) OBESITY WITH ALVEOLAR HY 07/23/2019 DOMENICA SMITH MD Ot E78.00 PURE HYPERCHOLESTEROLEMIA, UNSPECIFIED 07/23/2019 DOMENICA SMITH MD, Ot G47.30 SLEEP APNEA, UNSPECIFIED 07/23/2019 DOMENICA SMITH MD Ot I11 .0 HYPERTENSIVE HEART DISEASE WITH HEART FA 07/23/2019 DOMENICA SMITH MD, Ot 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 07/23/2019 DOMENICA SMITH MD Ot I48.91 [...] ENCOUNTER 07/23/2019 DOMENICA SMITH MD, Ot Y92.009 [facility] IN [facility] NON-[facility] (PRIVATE 07/23/2019 DMOENICA SMITH MD, Ot Z79 .4 ZONE SUPERVISOR FIREARMS (CURRENT) USE OF INSULIN 07/23/2019 DOMENICA SMITH [...] MD, Ot 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 07/23/2019 DOMENICA SMITH MD, Ot I48.91 [...] PAIN IN LEFT HIP 07/23/2019 DOMENICA SMITH MD, Ot R04 .0 EPISTAXIS 07/23/2019 DOMENICA SMITH MD, Ot R10.12 LEFT UPPER QUADRANT PAIN 07/23/2019 DOMENICA SMITH MD Ot R55 SYNCOPE AND COLLAPSE 07/23/2019 DOMENICA SMITH MD, Ot R60 .9 EDEMA, UNSPECIFIED 07/23/2019 DOMENICA SMITH MD, Ot S02.85XA FRACTURE OF ORBIT, UNSPECIFIED, INIT 07/23/2019 DOMENICA SMITH MD Ot W19.XXXA UNSPECIFIED FALL, INITIAL ENCOUNTER 07/23/2019 DOMENICA SMITH MD, Ot Y92.009 [facility] IN [facility] NON-INSTIT[facility] (PRIVATE 07/23/2019 DOMENICA SMITH MD, Ot Z79 .4 LONG-TERM (CURRENT) USE OF INSULIN 07/23/2019 DOMENICA SMITH [...] DIABETES MELLITUS WITHOUT COMPLIC 07/24/2019 DOMENICA SMITH MD, Ot E66 .2 MORBID (SEVERE) OBESITY WITH ALVEOLAR HY 07/24/2019 DOMENICA SMITH MD Ot E78.00 PURE HYPERCHOLESTEROLEMIA, UNSPECIFIED 07/24/2019 DOMENICA SMITH MD Ot G47.30 SLEEP APNEA, UNSPECIFIED 07/24/2019 DOMENICA SMITH MD Ot I11 .0 HYPERTENSIVE HEART DISEASE WITH HEART FA 07/24/2019 DOMENICA SMITH MD Ot 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 07/24/2019 DOMENICA SMITH MD Ot I48.91 [...] ENCOUNTER 07/24/2019 DOMENICA SMITH MD Ot Y92.009 [facility] IN [facility] NON-[facility]IT[facility] (PRIVATE 07/24/2019 DOMENICA SMITH MD Ot Z79 .4 ZONE SUPERVISOR FIREARMS (CURRENT) USE OF INSULIN 07/24/2019 DOMENICA SMITH [...] MD, Ot 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 07/24/2019 DOMENICA SMITH MD Ot I48.91 [...] PAIN IN RIGHT HIP 07/24/2019 DOMENICA SMITH MD, Ot M25.552 PAIN IN LEFT HIP 07/24/2019 DOMENICA SMITH MD Ot R04 .0 EPISTAXIS 07/24/2019 DOMENICA SMITH MD Ot R10.12 LEFT UPPER QUADRANT PAIN 07/24/2019 DOMENICA SMITH MD Ot R55 SYNCOPE AND COLLAPSE 07/24/2019 DOMENICA SMITH MD, Ot R60 .9 EDEMA, UNSPECIFIED 07/24/2019 DOMENICA SMITH MD, Ot S02.85XA FRACTURE OF ORBIT, UNSPECIFIED, INIT 07/24/2019 DOMENICA SMITH MD, Ot W19.XXXA UNSPECIFIED FALL, INITIAL ENCOUNTER 07/24/2019 DOMENICA SMITH MD, Ot Y92.009 [facility] IN [facility] NON-[facility]IT[facility] (PRIVATE 07/24/2019 DOMENICA SMITH MD, Ot Z79 .4 LONG-TERM (CURRENT) USE OF INSULIN 07/24/2019 DOMENICA SMITH [...] G47.30 SLEEP APNEA, UNSPECIFIED 07/24/2019 DOMENICA SMITH MD, Ot I11 .0 HYPERTENSIVE HEART DISEASE WITH HEART FA 07/24/2019 DOMENICA SMITH MD, Ot 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 07/24/2019 DOMENICA SMITH MD, Ot I48.91 UNSPECIFIED ATRIAL FIBRILLATION 07/24/2019 DOMENICA SMITH MD, Ot I50 .9 HEART FAILURE, UNSPECIFIED 07/24/2019 DOMENICA SMITH MD, Ot J44 .9 CHRONIC OBSTRUCTIVE PULMONARY DISEASE, U 07/24/2019 SARAH MD, DOMENICA N Ot K21 .9 GASTRO-ESOPHAGEAL REFLUX DISEASE WITHOUT 07/24/2019 DOMENICA SMITH MD Ot K59.09 OTHER CONSTIPATION 07/24/2019 DOMENICA SMITH MD, Ot M19.91 PRIMARY OSTEOARTHRITIS, UNSPECIFIED SITE 07/24/2019 DOMENICA SMITH MD Ot M25.551 PAIN IN RIGHT HIP 07/24/2019 DOMENICA SMITH MD, Ot M25.552 PAIN IN LEFT HIP 07/24/2019 [...] ENCOUNTER 07/24/2019 DOMENICA SMITH [facility] Ot Y92.[address] [facility] [address] [facility] NON-[facility] (PRIVATE 07/24/2019 DOMENICA SMITH MD, Ot Z79 .4 [employer]ONE SUPER[employer] FIREARMS (CURRENT) USE OF INSULIN 07/24/2019 DOMENICA SMITH [...] MD Ot 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 07/25/2019 DOMENICA SMITH MD Ot I48.91 [...] ENCOUNTER 07/25/2019 DOMENICA SMITH MD Ot Y92.009 [facility] IN [facility] NON[facility] (PRIVATE 07/25/2019 DOMENICA SMITH MD, Ot Z79 .4 LONG-TERM (CURRENT) USE OF INSULIN 07/25/2019 DOMENICA SMITH MD Ot Z86.711 PERSONAL HISTORY OF PULMONARY EMBOLISM 07/25/2019 DOMENICA SMITH MD, Ot Z87.891 PERSONAL HISTORY OF NICOTINE DEPENDENCE 07/25/2019 DOMENICA SMITH MD Ot Z95 .5 PRESENCE OF CORONARY ANGIOPLASTY IMPLANT 07/25/2019 DOMENICA SMITH MD Ot Z97 .8 PRESENCE [...] MD Ot 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 07/26/2019 DOMENICA SMITH MD Ot I48.91 [...] R60 .9 EDEMA, UNSPECIFIED 07/26/2019 DOMENICA SMITH MD, Ot S02.85XA FRACTURE OF ORBIT, UNSPECIFIED, INIT 07/26/2019 DOMENICA SMITH MD, Ot W19.XXXA UNSPECIFIED FALL, INITIAL ENCOUNTER 07/26/2019 DOMENICA SMITH MD, Ot Y92.009 [facility] IN [facility] NON[facility] (PRIVATE 07/26/2019 DOMENICA SMITH MD, Ot Z79 .4 LONG-TERM (CURRENT) USE OF INSULIN 07/26/2019 DOMENICA SMITH [...] SUPPLEMENTAL OXYGEN 07/26/2019 DOMENICA SMITH MD Ot D62 ACUTE POSTHEMORRHAGIC ANEMIA 07/26/2019 DOMENICA SMITH MD Ot D63 .8 ANEMIA IN OTHER CHRONIC [...] MD Ot 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 07/26/2019 DOMENICA SMITH MD, Ot I48.20 CHRONIC ATRIAL FIBRILLATION, UNSPECIFIED 07/26/2019 DOMENICA SMITH MD Ot I48.91 UNSPECIFIED ATRIAL FIBRILLATION 07/26/2019 SARAH MD, DOMENICA N Ot I50 .9 HEART FAILURE, UNSPECIFIED 07/26/2019 DOMENICA SMITH MD, Ot J44 .9 CHRONIC OBSTRUCTIVE PULMONARY DISEASE, U 07/26/2019 DOMENICA SMITH MD, Ot K21 .9 GASTRO-ESOPHAGEAL REFLUX DISEASE WITHOUT 07/26/2019 DOMENICA SMITH MD Ot K25 .4 CHRONIC OR UNSPECIFIED GASTRIC ULCER WIT 07/26/2019 DOMENICA SMITH MD Ot K59.09 OTHER CONSTIPATION 07/26/2019 DOMENICA SMITH MD, Ot K63 .5 POLYP OF COLON 07/26/2019 DOMENICA SMITH MD, Ot M19.91 PRIMARY OSTEOARTHRITIS, UNSPECIFIED SITE 07/26/2019 [...] R60 .9 EDEMA, UNSPECIFIED 07/26/2019 DOMENICA SMITH MD, Ot S02.85XA FRACTURE OF ORBIT, UNSPECIFIED, INIT 07/26/2019 DOMENICA SMITH MD Ot W19.XXXA UNSPECIFIED FALL, INITIAL ENCOUNTER 07/26/2019 DOMENICA SMITH MD, Ot Y92.009 [facility] IN [facility] NON-[facility] (PRIVATE 07/26/2019 DOMENICA SMITH MD, Ot Z79 .4 ZONE SUPERVIS[employer] FIREARMS (CURRENT) USE OF INSULIN 07/26/2019 DOMENICA SMITH MD, Ot Z86.711 PERSONAL HISTORY OF PULMONARY EMBOLISM 07/26/2019 DOMENICA SMITH MD, Ot Z87.891 PERSONAL HISTORY OF NICOTINE DEPENDENCE 07/26/2019 DOMENICA SMITH MD, Ot Z95 .5 PRESENCE OF CORONARY ANGIOPLASTY IMPLANT 07/26/2019 DOMENICA SMITH MD, Ot Z97 .8 PRESENCE OF OTHER SPECIFIED DEVICES 07/26/2019 DOMENICA SMITH MD, Ot Z99.81 DEPENDENCE ON SUPPLEMENTAL OXYGEN 07/29/2019 JessicaWiltoni W 250.00 DIABETES MELLITUS WITHOUT MENTION OF COMPLICATION, TYPE II OR UNSPECIFIED TYPE, NOT STATED UNCONTROLLED 07/29/2019 Jessica Zack W 272.4 OTHER AND UNSPECIFIED HYPERLIPIDEMIA 07/29/2019 LopezWiltoni W 280.0 IRON DEFICIENCY ANEMIA SECONDARY TO BLOOD LOSS (CHRONIC) 07/29/2019 Jessica Zack W 401.9 UNSPECIFIED ESSENTIAL HYPERTENSION 07/29/2019 Jessica Zack W 427.31 ATRIAL FIBRILLATION 07/29/2019 Jessica Zack W 428.32 CHRONIC DIASTOLIC HEART FAILURE 07/29/2019 Jessica Zack W 496 CHRONIC AIRWAY OBSTRUCTION, NOT ELSEWHERE CLASSIFIED 07/29/2019 Jessica Zack W 780.79 OTHER MALAISE AND FATIGUE 07/29/2019 Jessica Zack W D50.0 IRON DEFICIENCY ANEMIA SECONDARY TO BLOOD LOSS (CHRONIC) 07/29/2019 Jessica Zack W E11.9 TYPE 2 DIABETES MELLITUS WITHOUT COMPLICATIONS 07/29/2019 Jessica Zack W E78.5 HYPERLIPIDEMIA, UNSPECIFIED 07/29/2019 Jessica Zack W I10 ESSENTIAL (PRIMARY) HYPERTENSION 07/29/2019 Jessica Zack W I48.1 PERSISTENT ATRIAL FIBRILLATION 07/29/2019 Jessica Zack W I50.32 CHRONIC DIASTOLIC (CONGESTIVE) HEART FAILURE 07/29/2019 Zack Lopez W J44.9 CHRONIC OBSTRUCTIVE PULMONARY DISEASE, UNSPECIFIED 07/29/2019 Jessica Zack W R53.81 OTHER MALAISE 07/29/2019 Jessica Zack W V46.2 OTHER DEPENDENCE ON MACHINES, SUPPLEMENTAL OXYGEN 07/29/2019 Zack Lopez W V58.61 LONG- TERM (CURRENT) USE OF ANTICOAGULANTS 07/29/2019 Zack Lopez W Z79.01 LONG-TERM (CURRENT) USE OF ANTICOAGULANTS 07/29/2019 Jessica Zack W Z99.81 DEPENDENCE ON SUPPLEMENTAL OXYGEN 08/08/2019 ENMA PETERS APRN Ot 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 08/08/2019 ENMA PETERS APRN Ot J44.9 CHRONIC OBSTRUCTIVE PULMONARY DISEASE, U 08/22/2019 BOOM MILLER MD, Ot I48. 0 PAROXYSMAL ATRIAL FIBRILLATION 08/22/2019 PAUL MD, BASHAR J Ot Z79. 01 LONG-TERM (CURRENT) USE OF ANTICOAGULANT 08/22/2019 BOOM MILLER MD Ot E11. 9 TYPE 2 DIABETES MELLITUS WITHOUT COMPLIC 08/22/2019 BOOM MILLER MD Ot E66. 2 MORBID (SEVERE) OBESITY WITH ALVEOLAR HY 08/22/2019 BOOM MILLER MD Ot E78. 00 PURE HYPERCHOLESTEROLEMIA, UNSPECIFIED 08/22/2019 BOOM MILLER MD Ot F41. 9 ANXIETY DISORDER, UNSPECIFIED 08/22/2019 BOOM MILLER MD Ot I11. 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 0 PAROXYSMAL ATRIAL FIBRILLATION 08/22/2019 BOOM MILLER MD, Ot I49. 5 SICK SINUS SYNDROME 08/22/2019 BOOM MILLER MD Ot I50. 9 HEART FAILURE, UNSPECIFIED 08/22/2019 BOOM MILLER MD Ot I65. 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 9 CHRONIC OBSTRUCTIVE PULMONARY DISEASE, U 08/22/2019 BOOM MILLER MD Ot K21. 9 GASTRO-ESOPHAGEAL REFLUX DISEASE WITHOUT 08/22/2019 BOOM MILLER MD Ot K59. 09 OTHER CONSTIPATION 08/22/2019 BOOM MILLER MD Ot M19. 91 PRIMARY OSTEOARTHRITIS, UNSPECIFIED SITE 08/22/2019 BOOM MILLER MD Ot M25.551 PAIN IN RIGHT HIP 08/22/2019 BOOM MILLER MD Ot M25.552 PAIN IN LEFT HIP 08/22/2019 BOOM MILLER MD Ot R01. 1 CARDIAC MURMUR, UNSPECIFIED 08/22/2019 BOOM MILLER MD Ot Z68. 37 BODY MASS INDEX (BMI) 37.0-37.9, ADULT 08/22/2019 BOOM MILLER MD Ot Z86.711 PERSONAL HISTORY OF PULMONARY EMBOLISM 08/22/2019 BOOM MILLER MD Ot Z87. 19 PERSONAL HISTORY OF OTHER DISEASES OF TH 08/22/2019 BOOM MILLER MD Ot Z87.891 PERSONAL HISTORY OF NICOTINE DEPENDENCE 08/22/2019 BOOM MILLER MD Ot Z95. 5 PRESENCE OF CORONARY ANGIOPLASTY IMPLANT 08/22/2019 BOOM MILLER MD Ot Z99. 81 DEPENDENCE ON SUPPLEMENTAL OXYGEN 08/23/2019 BOOM MILLER MD Ot E11. 9 TYPE 2 DIABETES MELLITUS WITHOUT COMPLIC 08/23/2019 BOOM MILLER MD Ot E66. 2 MORBID (SEVERE) OBESITY WITH ALVEOLAR HY 08/23/2019 BOOM MILLER MD Ot E78. 00 PURE HYPERCHOLESTEROLEMIA, UNSPECIFIED 08/23/2019 BOOM MILLER MD Ot F41. 9 ANXIETY DISORDER, UNSPECIFIED 08/23/2019 BOOM MILLER MD Ot I11. 0 HYPERTENSIVE HEART DISEASE WITH HEART FA 08/23/2019 BOOM MILLER MD Ot I25. 10 ATHSCL HEART DISEASE OF FALSE [place] CORONARY 08/23/2019 BOOM MILLER MD Ot I48. 0 PAROXYSMAL ATRIAL FIBRILLATION 08/23/2019 BOOM MILLER MD Ot I49. 5 SICK SINUS SYNDROME 08/23/2019 BOOM MILLER MD Ot I50. 9 HEART FAILURE, UNSPECIFIED 08/23/2019 BOOM MILLER MD Ot I65. 23 OCCLUSION AND STENOSIS OF BILATERAL LEAL 08/23/2019 BOOM MILLER MD Ot I70.203 UNSP ATHSCL FALSE PASS [facility] 08/23/2019 BOOM MILLER MD Ot J44. 9 CHRONIC OBSTRUCTIVE PULMONARY DISEASE, U 08/23/2019 BOOM MILLER MD Ot K21. 9 GASTRO-ESOPHAGEAL REFLUX DISEASE WITHOUT 08/23/2019 BOOM MILLER MD Ot K59. 09 OTHER CONSTIPATION 08/23/2019 BOOM MILLER MD Ot M19. 91 PRIMARY OSTEOARTHRITIS, UNSPECIFIED SITE 08/23/2019 BOOM MILLER MD Ot M25.551 PAIN IN RIGHT HIP 08/23/2019 BOOM MILLER MD Ot M25.552 PAIN IN LEFT HIP 08/23/2019 BOOM MILLER MD Ot R01. 1 CARDIAC MURMUR, UNSPECIFIED 08/23/2019 BOOM MILLER MD Ot Z68. 37 BODY MASS INDEX (BMI) 37.0-37.9, ADULT 08/23/2019 BOOM MILLER MD Ot Z86.711 PERSONAL HISTORY OF PULMONARY EMBOLISM 08/23/2019 BOOM MILLER MD Ot Z87. 19 PERSONAL HISTORY OF OTHER DISEASES OF TH 08/23/2019 BOOM MILLER MD Ot Z87.891 PERSONAL HISTORY OF NICOTINE DEPENDENCE 08/23/2019 BOOM MILLER MD Ot Z95. 5 PRESENCE OF CORONARY ANGIOPLASTY IMPLANT 08/23/2019 BOOM MILLER MD Ot Z99. 81 DEPENDENCE ON SUPPLEMENTAL OXYGEN 08/23/2019 BOOM MILLER MD Ot E11. 9 TYPE 2 DIABETES MELLITUS WITHOUT COMPLIC 08/23/2019 BOOM MILLER MD Ot E66. 2 MORBID (SEVERE) OBESITY WITH ALVEOLAR HY 08/23/2019 BOOM MILLER MD Ot E78. 00 PURE HYPERCHOLESTEROLEMIA, UNSPECIFIED 08/23/2019 BOOM MILLER MD Ot F41. 9 ANXIETY DISORDER, UNSPECIFIED 08/23/2019 BOOM MILLER MD Ot I11. 0 HYPERTENSIVE HEART DISEASE WITH HEART FA 08/23/2019 BOOM MILLER MD Ot I25. 10 ATHSCL HEART DISEASE OF FALSE [place] CORONARY 08/23/2019 BOOM MILLER MD Ot I48. 0 PAROXYSMAL ATRIAL FIBRILLATION 08/23/2019 BOOM MILLER MD Ot I49. 5 SICK SINUS SYNDROME 08/23/2019 BOOM MILLER MD Ot I50. 9 HEART FAILURE, UNSPECIFIED 08/23/2019 BOOM MILLER MD Ot I65. 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 9 CHRONIC OBSTRUCTIVE PULMONARY DISEASE, U 08/23/2019 BOOM MILLER MD Ot K21. 9 GASTRO-ESOPHAGEAL REFLUX DISEASE WITHOUT 08/23/2019 BOOM MILLER MD Ot K59. 09 OTHER CONSTIPATION 08/23/2019 BOOM MILLER MD Ot M19. 91 PRIMARY OSTEOARTHRITIS, UNSPECIFIED SITE 08/23/2019 BOOM MILLER MD Ot M25.551 PAIN IN RIGHT HIP 08/23/2019 BOOM MILLER MD Ot M25.552 PAIN IN LEFT HIP 08/23/2019 BOOM MILLER MD Ot R01. 1 CARDIAC MURMUR, UNSPECIFIED 08/23/2019 BOOM MILLER MD Ot Z68. 37 BODY MASS INDEX (BMI) 37.0-37.9, ADULT 08/23/2019 BOOM MILLER MD, Ot Z86.711 PERSONAL HISTORY OF PULMONARY EMBOLISM 08/23/2019 BOOM MILLER MD Ot Z87. 19 PERSONAL HISTORY OF OTHER DISEASES OF TH 08/23/2019 BOOM MILLER MD Ot Z87.891 PERSONAL HISTORY OF NICOTINE DEPENDENCE 08/23/2019 BOOM MILLER MD Ot Z95. 5 PRESENCE OF CORONARY ANGIOPLASTY IMPLANT 08/23/2019 BOOM MILLER MD Ot Z99. 81 DEPENDENCE ON SUPPLEMENTAL OXYGEN 08/24/2019 BOOM MILLER MD Ot E11. 9 TYPE 2 DIABETES MELLITUS WITHOUT COMPLIC 08/24/2019 BOOM MILLER MD Ot E66. 2 MORBID (SEVERE) OBESITY WITH ALVEOLAR HY 08/24/2019 BOOM MILLER MD Ot E78. 00 PURE HYPERCHOLESTEROLEMIA, UNSPECIFIED 08/24/2019 BOOM MILLER MD Ot F41. 9 ANXIETY DISORDER, UNSPECIFIED 08/24/2019 BOOM MILLER MD Ot I11. 0 HYPERTENSIVE HEART DISEASE WITH HEART FA 08/24/2019 BOOM MILLER MD Ot I25. 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 0 PAROXYSMAL ATRIAL FIBRILLATION 08/24/2019 BOOM MILLER MD Ot I49. 5 SICK SINUS SYNDROME 08/24/2019 BOOM MILLER MD Ot I50. 9 HEART FAILURE, UNSPECIFIED 08/24/2019 BOOM MILLER MD Ot I65. 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 9 CHRONIC OBSTRUCTIVE PULMONARY DISEASE, U 08/24/2019 BOOM MILLER MD Ot K21. 9 GASTRO-ESOPHAGEAL REFLUX DISEASE WITHOUT 08/24/2019 BOOM MILLER MD Ot K59. 09 OTHER CONSTIPATION 08/24/2019 BOOM MILLER MD Ot M19. 91 PRIMARY OSTEOARTHRITIS, UNSPECIFIED SITE 08/24/2019 BOOM MILLER MD Ot M25.551 PAIN IN RIGHT HIP 08/24/2019 BOOM MILLER MD Ot M25.552 PAIN IN LEFT HIP 08/24/2019 BOOM MILLER MD Ot R01. 1 CARDIAC MURMUR, UNSPECIFIED 08/24/2019 BOOM MILLER MD Ot Z68. 37 BODY MASS INDEX (BMI) 37.0-37.9, ADULT 08/24/2019 BOOM MILLER MD Ot Z86.711 PERSONAL HISTORY OF PULMONARY EMBOLISM 08/24/2019 BOOM MILLER MD Ot Z87. 19 PERSONAL HISTORY OF OTHER DISEASES OF TH 08/24/2019 BOOM MILLER MD Ot Z87.891 PERSONAL HISTORY OF NICOTINE DEPENDENCE 08/24/2019 BOOM MILLER MD Ot Z95. 5 PRESENCE OF CORONARY ANGIOPLASTY IMPLANT 08/24/2019 BOOM MILLER MD Ot Z99. 81 DEPENDENCE ON SUPPLEMENTAL OXYGEN 08/24/2019 BOOM MILLER MD Ot E11. 9 TYPE 2 DIABETES MELLITUS WITHOUT COMPLIC 08/24/2019 BOOM MILLER MD Ot E66. 2 MORBID (SEVERE) OBESITY WITH ALVEOLAR HY 08/24/2019 BOOM MILLER MD Ot E78. 00 PURE HYPERCHOLESTEROLEMIA, UNSPECIFIED 08/24/2019 BOOM MILLER MD Ot F41. 9 ANXIETY DISORDER, UNSPECIFIED 08/24/2019 BOOM MILLER MD Ot I11. 0 HYPERTENSIVE HEART DISEASE WITH HEART FA 08/24/2019 BOOM MILLER MD Ot I25. 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 0 PAROXYSMAL ATRIAL FIBRILLATION 08/24/2019 BOOM MILLER MD Ot I49. 5 SICK SINUS SYNDROME 08/24/2019 BOOM MILLER MD Ot I50. 9 HEART FAILURE, UNSPECIFIED 08/24/2019 BOOM MILLER MD Ot I65. 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 9 CHRONIC OBSTRUCTIVE PULMONARY DISEASE, U 08/24/2019 BOOM MILLER MD Ot K21. 9 GASTRO-ESOPHAGEAL REFLUX DISEASE WITHOUT 08/24/2019 BOOM MILLER MD Ot K59. 09 OTHER CONSTIPATION 08/24/2019 BOOM MILLER MD Ot M19. 91 PRIMARY OSTEOARTHRITIS, UNSPECIFIED SITE 08/24/2019 BOOM MILLER MD, Ot M25.551 PAIN IN RIGHT HIP 08/24/2019 BOOM MILLER MD Ot M25.552 PAIN IN LEFT HIP 08/24/2019 BOOM MILLER MD Ot R01. 1 CARDIAC MURMUR, UNSPECIFIED 08/24/2019 BOOM MILLER MD Ot Z68. 37 BODY MASS INDEX (BMI) 37.0-37.9, ADULT 08/24/2019 BOOM MILLER MD, Ot Z86.711 PERSONAL HISTORY OF PULMONARY EMBOLISM 08/24/2019 BOOM MILLER MD Ot Z87. 19 PERSONAL HISTORY OF OTHER DISEASES OF TH 08/24/2019 BOOM MILLER MD Ot Z87.891 PERSONAL HISTORY OF NICOTINE DEPENDENCE 08/24/2019 BOOM MILLER MD Ot Z95. 5 PRESENCE OF CORONARY ANGIOPLASTY IMPLANT 08/24/2019 BOOM MILLER MD Ot Z99. 81 DEPENDENCE ON SUPPLEMENTAL OXYGEN 08/24/2019 BOOM MILLER MD Ot D64. 9 ANEMIA, UNSPECIFIED 08/24/2019 BOOM MILLER MD Ot E11. 9 TYPE 2 DIABETES MELLITUS WITHOUT COMPLIC 08/24/2019 BOOM MILLER MD Ot E66. 2 MORBID (SEVERE) OBESITY WITH ALVEOLAR HY 08/24/2019 BOOM MILLER MD Ot E78. 00 PURE HYPERCHOLESTEROLEMIA, UNSPECIFIED 08/24/2019 BOOM MILLER MD Ot E78. 5 HYPERLIPIDEMIA, UNSPECIFIED 08/24/2019 BOOM MILLER MD Ot F41. 9 ANXIETY DISORDER, UNSPECIFIED 08/24/2019 BOOM MILLER MD Ot G89. 29 OTHER CHRONIC PAIN 08/24/2019 BOOM MILLER MD Ot I11. 0 HYPERTENSIVE HEART DISEASE WITH HEART FA 08/24/2019 BOOM MILLER MD Ot I13. 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 0 PAROXYSMAL ATRIAL FIBRILLATION 08/24/2019 BOOM MILLER MD Ot I49. 5 SICK SINUS SYNDROME 08/24/2019 BOOM MILLER MD Ot I50. 32 CHRONIC DIASTOLIC (CONGESTIVE) HEART AMBAR 08/24/2019 BOOM MILLER MD Ot I50. 9 HEART FAILURE, UNSPECIFIED 08/24/2019 BOOM MILLER MD Ot I65. 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 9 CHRONIC OBSTRUCTIVE PULMONARY DISEASE, U 08/24/2019 BOOM MILLER MD Ot K21. 9 GASTRO-ESOPHAGEAL REFLUX DISEASE WITHOUT 08/24/2019 BOOM MILLER MD Ot K59. 09 OTHER CONSTIPATION 08/24/2019 BOOM MILLER MD Ot M19. 91 PRIMARY OSTEOARTHRITIS, UNSPECIFIED SITE 08/24/2019 BOOM MILLER MD Ot M25.551 PAIN IN RIGHT HIP 08/24/2019 BOOM MILLER MD Ot M25.552 PAIN IN LEFT HIP 08/24/2019 BOOM MILLER MD Ot N18. 9 CHRONIC KIDNEY DISEASE, UNSPECIFIED 08/24/2019 BOOM MILLER MD, Ot R01. 1 CARDIAC MURMUR, UNSPECIFIED 08/24/2019 BOOM MILLER MD Ot Z20.828 CONTACT W AND EXPOSURE TO OTH VIRAL COMM 08/24/2019 BOOM MILLER MD Ot Z68. 37 BODY MASS INDEX (BMI) 37.0-37.9, ADULT 08/24/2019 BOOM MILLER MD Ot Z79. 4 LONG-TERM (CURRENT) USE OF INSULIN 08/24/2019 BOOM MILLER MD Ot Z86.711 PERSONAL HISTORY OF PULMONARY EMBOLISM 08/24/2019 BOOM MILLER MD Ot Z87. 19 PERSONAL HISTORY OF OTHER DISEASES OF TH 08/24/2019 BOOM MILLER MD Ot Z87.891 PERSONAL HISTORY OF NICOTINE DEPENDENCE 08/24/2019 BOOM MILLER MD Ot Z95. 5 PRESENCE OF CORONARY ANGIOPLASTY IMPLANT 08/24/2019 BOOM MILLER MD, Ot Z99. 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 10/04/2019 ILANA SANTAMARIA MD Ot I70.9 0 UNSPECIFIED ATHEROSCLEROSIS Procedures Code [...] 11/13/[address]/INFUSE PLATELET INHIBITOR 11/13/2011 06384 ROUT INE VENIPUNCTURE 01/14/2012 99140 A1C (IN-HOUSE) 01/14/2012 06296 CMP 01/15/2012 [id number] GF R CALC (RESULT ONLY) 01/15/2012 92750 ROUT INE VENIPUNCTURE 04/13/2012 50357 BMP 04/13/2012 [id number] GF R CALC (RESULT ONLY) 04/13/2012 78081 A1C (IN-HOUSE) 04/25/2012 77729 MICR O ALBUMIN-IN HOUSE 04/25/2012 76805 MICR OALBUMIN 04/25/2012 18031 HEPA TITIS PROFILE 05/24/2012 91261 ROUT INE VENIPUNCTURE 08/05/2012 95760 A1C (IN-HOUSE) 08/05/2012 59253 CMP 08/05/2012 98751 LIPI D PANEL 08/05/2012 [id number] GF R CALC (RESULT ONLY) 08/05/2012 26199 A1C (IN-HOUSE) 11/10/2012 57064 A1C (IN-HOUSE) 02/24/2013 90827 ROUT INE VENIPUNCTURE 05/30/2013 22264 EKG, TRACING (IN-HOUSE) 05/30/2013 43478 LIPI D PANEL 05/30/2013 15920 MAGNESIUM 05/30/2013 73120 CBC 05/30/2013 [id number] GF R CALC (RESULT ONLY) 05/30/2013 18024 CMP 05/30/2013 24628 TSH 05/30/2013 78910 NUCL EAR STRESS TESTING 07/28/2013 08439 ECHO 2D 07/28/2013 39008 MAMM OGRAM, SCREENING 10/23/2013 18432 XRAY CERVICAL SPINE, 2 OR 3 VIEWS 02/20/2014 84113 XRAY WRIST RIGHT COMP MIN 3 VIEWS 03/06/2014 27044 A1C (IN-HOUSE) 03/23/2014 90805 XRAY CERVICAL SPINE, 2 OR 3 VIEWS 04/02/2014 [id number] PE RFORMANCE OF CARDIAC PACING, CONTINUOU 07/21/2018 [id number] IN SERT OF MONITOR DEV INTO CHEST SUBCU/F 07/24/2018 [id number] EX CISION OF STOMACH, PYLORUS, ENDO, DIAG 07/25/2019 [id number] EX CISION OF CECUM, ENDO, DIAGN 07/25/2019 [id number] EX CISION OF ASCENDING COLON, ENDO, DIAGN 07/25/2019 [id number] EX CISION OF TRANSVERSE COLON, ENDO, DIAG 07/25/2019 [id number] RE STORATION OF CARDIAC RHYTHM, SINGLE 08/22/2019 [id number] IN SERTION OF PACEMAKER LEAD INTO RIGHT A 08/23/2019 [id number] IN SERTION OF PACEMAKER LEAD INTO R VENTR 08/23/2019 [id number] IN SERT PACE. DUAL NICKY IN CHEST SUBCU/FA 08/23/2019 Results Test Result Range Comp. Metabolic Panel [...] IU/L 0-32 Microalb/Creat Ratio, Randm Ur - 7 17:06 Creatinine, Urine 31.9 [...] mg/dL 8.5-10.1 Automated blood complete blood count ( [employer]) panel - 03/24/17 08:56 Blood leukocytes automated [...] 7-25 CREATININE 1.27 mg/dL 0.50-0.99 eGFR NON-AFR. IRANIAN 46 mL/min/1.73m2 > OR = 60 eGFR [...] Staphylococcus aureus (MRSA) scr eening culture NEG NR Influenza virus A and B antigen detectio [...] by glucometer (mas s/volume) 192 mg/dL 70-110 [id number] - 03/09/19 12:50 Serum or plasma urea nitrogen measurement (mass/volume ) 20 mg/dL 7-18 Serum or plasma creatinine measurement (mass/volume) 1.26 mg/dL 0.60-1.30 Serum or plasma urea nitrogen/creatinine mass ratio 16 NRG Serum or plasma creatinine measurement w ith calculation of estimated glomerular filtration rate 43 NRG [id number] - 03/31/19 11:11 Serum or plasma urea nitrogen measurement (mass/volume ) 23 mg/dL 7-18 Serum or plasma creatinine measurement (mass/volume) 1.04 mg/dL 0.60-1.30 Serum or plasma urea nitrogen/creatinine mass ratio 22 NRG Serum or plasma creatinine measurement w ith calculation of estimated glomerular filtration rate 54 NRG CMP - 06/01/19 15:30 GLUCOSE 297 mg/dL 65-139 UREA NITROGEN (BUN) 21 mg/dL 7-25 CREATININE 1.25 mg/dL 0.50-0.99 eGFR NON-AFR. IRANIAN 46 mL/min/1.73m2 > OR = 60 eGFR [...] NRG Blood type T Indirect antibody screen nc darleen - 07/20/19 17:10 WRISTBAND NUMBER [id number] NRG ABO+Rh group OP NRG Blood group antibody screen NEGATIVE NR G RED CELLS LEUKO REDUCED AS1 - 07/20/19 1 7:10 RED CELLS LEUKO REDUCED AS1 T RANSFUSED 07/20/191941 NRG Blood type T Indirect antibody screen pa darleen - 07/20/19 17:10 WRISTBAND NUMBER [id number] NRG ABO+Rh group OP NRG Blood group [...] Whole blood basic metabolic panel - 05/0 04/10 01:42 Serum or plasma sodium measurement [...] mg/dL 70-110 Whole blood hemoglobin and hematocrit banner - 07/21/19 08:20 Venous blood hemoglobin measurement (mass/volume) 6.7 g/dL 11.5-16.0 Blood hematocrit (volume fraction) 21 % 35-52 Capillary blood glucose measurement by g lucometer (mass/volume) - 07/21/19 11:40 Capillary blood glucose measurement by glucometer (mas s/volume) 322 mg/dL 70-110 Whole blood hemoglobin and hematocrit [facility] 07/21/19 15:05 Venous blood hemoglobin measurement (mass/volume) 6.6 g/dL 11.5-16.0 Blood hematocrit (volume fraction) 21 % 35-52 Capillary blood glucose measurement by g lucometer (mass/volume) - 07/21/19 15:50 Capillary blood glucose measurement by glucometer (mas s/volume) 312 mg/dL 70-110 Capillary blood glucose measurement by g lucometer (mass/volume) - 05/01/20 20:27 Capillary blood glucose measurement by glucometer (mas s/volume) 249 mg/dL 70-110 Whole blood hemoglobin and hematocrit pa darleen - 07/21/19 21:55 Venous blood hemoglobin measurement (mass/volume) [...] Whole blood basic metabolic panel - 05/0 06/08 04:40 Serum or plasma sodium measurement [...] 0.0-0.1 Whole blood basic metabolic panel - 08/08 04:15 Serum or plasma sodium measurement [...] g/dL 6.0-8.3 Automated blood complete blood count ( mogram) panel - 08/21/19 16:45 Blood leukocytes [...] 6:45 THYROID STIMULATING HORMONE 2.09 u[iU]/mL 0.35-4.94 Coronavirus SARS-CoV-2 SO 2019 - 0 17:30 Coronavirus Ab [Units/volume] in Serum Negative Negative Capillary blood glucose measurement by g lucometer (mass/volume) - 08/21/19 20:58 Capillary blood glucose measurement by glucometer (mas s/volume) 235 mg/dL 70-110 Complete blood count (CBC) with automate d white blood cell (WBC) differential - 08/22/19 04:15 Blood leukocytes automated count (number/volume) 5.7 10*3/uL 4.3-11.0 Blood erythrocytes automated count (number/volume) 4.06 10*6/uL 4.35-5.85 Venous blood hemoglobin measurement (mass/volume) 11.2 g/dL 11.5-16.0 Blood hematocrit (volume fraction) 37 % 35-52 Automated erythrocyte mean corpuscular volume 90 [ foz_us] 80-99 Automated erythrocyte mean corpuscular h emoglobin (mass per erythrocyte) 28 pg 25-34 Automated erythrocyte mean corpuscular h emoglobin concentration measurement (mass/volume) 31 g/dL 32-36 Automated erythrocyte distribution width ratio 15. 0 % 10.0- 14.5 Automated blood platelet count (count/volume) 112 10*3/uL 130-400 Automated blood platelet mean volume measurement 10.5 [foz_us] 7.4-10.4 Automated blood neutrophils/100 leukocytes 62 % 42-75 Automated blood lymphocytes/100 leukocytes 26 % 12-44 Blood monocytes/100 leukocytes 6 % 0-12 Automated blood eosinophils/100 leukocytes 6 % 0-10 Automated blood basophils/100 leukocytes 0 % 0-10 Blood neutrophils automated count (number/volume) 3.5 10*3 1.8-7.8 Blood lymphocytes automated count (number/volume) 1.5 10*3 1.0-4.0 Blood monocytes automated count (number/volume) 0. 3 10*3 0.0-1.0 Automated eosinophil count 0.3 10*3/uL 0 .0-0.3 Automated blood basophil count (count/volume) 0.0 10*3/uL 0.0-0.1 Whole blood basic metabolic panel - 05/11 04:15 Serum or plasma sodium measurement (moles/volume) 140 mmol/L 135-145 Serum or plasma potassium measurement (moles/volume) 4.3 mmol/L 3.6-5.0 Serum or plasma chloride measurement (moles/volume) 105 mmol/L 98-107 Carbon dioxide 22 mmol/L 21-32 Serum or plasma anion gap determination (moles/volume) 13 mmol/L 5-14 Serum or plasma urea nitrogen measurement (mass/volume ) 23 mg/dL 7-18 Serum or plasma creatinine measurement (mass/volume) 1.46 mg/dL 0.60-1.30 Serum or plasma urea nitrogen/creatinine mass ratio 16 NRG Serum or plasma creatinine measurement w ith calculation of estimated glomerular filtration rate 36 NRG Serum or plasma glucose measurement (mass/volume) 209 mg/dL 70-105 Serum or plasma calcium measurement (mass/volume) 9.1 mg/dL 8.5-10.1 Serum or plasma phosphate measurement (m ass/volume) - 08/22/19 04:15 Serum or plasma phosphate measurement (mass/volume) 3.8 mg/dL 2.3-4.7 Magnesium - 08/22/19 04:15 Magnesium 1.8 mg/dL 1.6-2.4 Capillary blood glucose measurement by g lucometer (mass/volume) - 08/22/19 06:42 Capillary blood glucose measurement by glucometer (mas s/volume) 228 mg/dL 70-110 Capillary blood glucose measurement by g lucometer (mass/volume) - 08/22/19 10:56 Capillary blood glucose measurement by glucometer (mas s/volume) 246 mg/dL 70-110 Capillary blood glucose measurement by g lucometer (mass/volume) - 08/22/19 15:29 Capillary blood glucose measurement by glucometer (mas s/volume) 300 mg/dL 70-110 Capillary blood glucose measurement by g lucometer (mass/volume) - 08/22/19 20:33 Capillary blood glucose measurement by glucometer (mas s/volume) 245 mg/dL 70-110 Complete blood count (CBC) with automate d white blood cell (WBC) differential - 08/23/19 02:47 Blood leukocytes automated count (number/volume) 4.9 10*3/uL 4.3-11.0 Blood erythrocytes automated count (number/volume) 3.57 10*6/uL 4.35-5.85 Venous blood hemoglobin measurement (mass/volume) 10.0 g/dL 11.5-16.0 Blood hematocrit (volume fraction) 32 % 35-52 Automated erythrocyte mean corpuscular volume 90 [ foz_us] 80-99 Automated erythrocyte mean corpuscular h emoglobin (mass per erythrocyte) 28 pg 25-34 Automated erythrocyte mean corpuscular h emoglobin concentration measurement (mass/volume) 31 g/dL 32-36 Automated erythrocyte distribution width ratio 14. 8 % 10.0- 14.5 Automated blood platelet count (count/volume) 102 10*3/uL 130-400 Automated blood platelet mean volume measurement 10.5 [foz_us] 7.4-10.4 Automated blood neutrophils/100 leukocytes 65 % 42-75 Automated blood lymphocytes/100 leukocytes 25 % 12-44 Blood monocytes/100 leukocytes 4 % 0-12 Automated blood eosinophils/100 leukocytes 6 % 0-10 Automated blood basophils/100 leukocytes 0 % 0-10 Blood neutrophils automated count (number/volume) 3.2 10*3 1.8-7.8 Blood lymphocytes automated count (number/volume) 1.2 10*3 1.0-4.0 Blood monocytes automated count (number/volume) 0. 2 10*3 0.0-1.0 Automated eosinophil count 0.3 10*3/uL 0 .0-0.3 Automated blood basophil count (count/volume) 0.0 10*3/uL 0.0-0.1 Whole blood basic metabolic panel - 06/08 02:47 Serum or plasma sodium measurement (moles/volume) 138 mmol/L 135-145 Serum or plasma potassium measurement (moles/volume) 4.1 mmol/L 3.6-5.0 Serum or plasma chloride measurement (moles/volume) 103 mmol/L 98-107 Carbon dioxide 23 mmol/L 21-32 Serum or plasma anion gap determination (moles/volume) 12 mmol/L 5-14 Serum or plasma urea nitrogen measurement (mass/volume ) 21 mg/dL 7-18 Serum or plasma creatinine measurement (mass/volume) 1.38 mg/dL 0.60-1.30 Serum or plasma urea nitrogen/creatinine mass ratio 15 NRG Serum or plasma creatinine measurement w ith calculation of estimated glomerular filtration rate 39 NRG Serum or plasma glucose measurement (mass/volume) 171 mg/dL 70-105 Serum or plasma calcium measurement (mass/volume) 8.8 mg/dL 8.5-10.1 Serum or plasma phosphate measurement (m ass/volume) - 08/23/19 02:47 Serum or plasma phosphate measurement (mass/volume) 3.4 mg/dL 2.3-4.7 Magnesium - 08/23/19 02:47 Magnesium 1.8 mg/dL 1.6-2.4 IRON TEST - 08/23/19 04:15 Serum or plasma iron measurement (mass/volume) 49 % 35-180 Capillary blood glucose measurement by g lucometer (mass/volume) - 08/23/19 11:24 Capillary blood glucose measurement by glucometer (mas s/volume) 200 mg/dL 70-110 Capillary blood glucose measurement by g lucometer (mass/volume) - 08/23/19 15:26 Capillary blood glucose measurement by glucometer (mas s/volume) 283 mg/dL 70-110 Capillary blood glucose measurement by g lucometer (mass/volume) - 08/23/19 20:59 Capillary blood glucose measurement by glucometer (mas s/volume) 177 mg/dL 70-110 Automated blood complete blood count ( mogram) panel - 08/24/19 03:15 Blood leukocytes automated count (number/volume) 6.2 10*3/uL 4.3-11.0 Blood erythrocytes automated count (number/volume) 3.66 10*6/uL 4.35-5.85 Venous blood hemoglobin measurement (mass/volume) 10.0 g/dL 11.5-16.0 Blood hematocrit (volume fraction) 33 % 35-52 Automated erythrocyte mean corpuscular volume 90 [ foz_us] 80-99 Automated erythrocyte mean corpuscular h emoglobin (mass per erythrocyte) 27 pg 25-34 Automated erythrocyte mean corpuscular h emoglobin concentration measurement (mass/volume) 30 g/dL 32-36 Automated erythrocyte distribution width ratio 14. 9 % 10.0- 14.5 Automated blood platelet count (count/volume) 109 10*3/uL 130-400 Automated blood platelet mean volume measurement 11.4 [foz_us] 7.4-10.4 Comprehensive metabolic panel - 08/24/19 03:15 Serum or plasma sodium measurement (moles/volume) 136 mmol/L 135-145 Serum or plasma potassium measurement (moles/volume) 4.8 mmol/L 3.6-5.0 Serum or plasma chloride measurement (moles/volume) 101 mmol/L 98-107 Carbon dioxide 27 mmol/L 21-32 Serum or plasma anion gap determination (moles/volume) 8 mmol/L 5-14 Serum or plasma urea nitrogen measurement (mass/volume ) 21 mg/dL 7-18 Serum or plasma creatinine measurement (mass/volume) 1.50 mg/dL 0.60-1.30 Serum or plasma urea nitrogen/creatinine mass ratio 14 NRG Serum or plasma creatinine measurement w ith calculation of estimated glomerular filtration rate 35 NRG Serum or plasma glucose measurement (mass/volume) 210 mg/dL 70-105 Serum or plasma calcium measurement (mass/volume) 9.0 mg/dL 8.5-10.1 Serum or plasma total bilirubin measurement (mass/volu me) 0.5 mg/dL 0.1-1.0 Serum or plasma alkaline phosphatase shereen surement (enzymatic activity/volume) 85 U/L 40-136 Serum or plasma aspartate aminotransfera se measurement (enzymatic activity/volume) 45 U/L 5-34 Serum or plasma alanine aminotransferase measurement (enzymatic activity/volume) 30 U/L 0-55 Serum or plasma protein measurement (mass/volume) 7.3 g/dL 6.4-8.2 Serum or plasma albumin measurement (mass/volume) 3.8 g/dL 3.2-4.5 CALCIUM CORRECTED 9.2 mg/dL 8.5-10.1 Serum or plasma phosphate measurement (m ass/volume) - 08/24/19 03:15 Serum or plasma phosphate measurement (mass/volume) 2.5 mg/dL 2.3-4.7 Magnesium - 08/24/19 03:15 Magnesium 1.8 mg/dL 1.6-2.4 Capillary blood glucose measurement by g lucometer (mass/volume) - 08/24/19 06:30 Capillary blood glucose measurement by glucometer (mas s/volume) 222 mg/dL 70-110 Complete blood count (CBC) with automate d white blood cell (WBC) differential - 10/26/19 17:53 Blood leukocytes automated count (number/volume) 10.1 10*3/uL 4.3-11.0 Blood erythrocytes automated count (number/volume) 4.29 10*6/uL 4.35-5.85 Venous blood hemoglobin measurement (mass/volume) 11.9 g/dL 11.5-16.0 Blood hematocrit (volume fraction) 36 % 35-52 Automated erythrocyte mean corpuscular volume 83 [ foz_us] 80-99 Automated erythrocyte mean corpuscular h emoglobin (mass per erythrocyte) 28 pg 25-34 Automated erythrocyte mean corpuscular h emoglobin concentration measurement (mass/volume) 33 g/dL 32-36 Automated erythrocyte distribution width ratio 13. 8 % 10.0- 14.5 Automated blood platelet count (count/volume) 130 10*3/uL 130-400 Automated blood platelet mean volume measurement 10.8 [foz_us] 7.4-10.4 Automated blood neutrophils/100 leukocytes 83 % 42-75 Automated blood lymphocytes/100 leukocytes 11 % 12-44 Blood monocytes/100 leukocytes 5 % [...] 0.0 10*3/uL 0.0-0.1 Comprehensive metabolic panel - 10/26/19 17:53 Serum or plasma sodium measurement (moles/volume) 137 mmol/L 135-145 Serum or plasma potassium measurement (moles/volume) 4.2 mmol/L 3.6-5.0 Serum or plasma chloride measurement (moles/volume) 102 mmol/L 98-107 Carbon dioxide 22 mmol/L 21-32 Serum or plasma anion gap determination (moles/volume) 13 mmol/L 5-14 Serum or plasma urea nitrogen measurement (mass/volume ) 29 mg/dL 7-18 Serum or plasma creatinine measurement (mass/volume) 1.26 mg/dL 0.60-1.30 Serum or plasma urea nitrogen/creatinine mass ratio 23 NRG Serum or plasma creatinine measurement w ith calculation of estimated glomerular filtration rate 43 NRG Serum or plasma glucose measurement (mass/volume) 252 mg/dL 70-105 Serum or plasma calcium measurement (mass/volume) 9.4 mg/dL 8.5-10.1 Serum or plasma total bilirubin measurement (mass/volu me) 0.2 mg/dL 0.1-1.0 Serum or plasma alkaline phosphatase shereen surement (enzymatic activity/volume) 106 U/L 40-136 Serum or plasma aspartate aminotransfera se measurement (enzymatic activity/volume) 75 U/L 5-34 Serum or plasma alanine aminotransferase measurement (enzymatic activity/volume) 93 U/L 0-55 Serum or plasma protein measurement (mass/volume) 6.8 g/dL 6.4-8.2 Serum or plasma albumin measurement (mass/volume) 3.8 g/dL 3.2-4.5 CALCIUM CORRECTED 9.6 mg/dL 8.5-10.1 Capillary blood glucose measurement by g lucometer (mass/volume) - 10/26/19 17:54 Capillary blood glucose measurement by glucometer (mas s/volume) 221 mg/dL 70-110 Capillary blood glucose measurement by g lucometer (mass/volume) - 10/26/19 18:32 Capillary blood glucose measurement by glucometer (mas s/volume) 219 mg/dL 70-110 Encounters ACCT No. Visit Date/Time Discharge Status Pt. Type Provider Facility Loc./Unit Complaint [id number] 07/10/2016 11:07:00 Document Registration [id number] 06/01/2014 14:09:00 06/01/2014 23:59: 59 CLS Outpatient GEE AMADO MD [id number] 04/30/2014 13:56:00 04/30/2014 23:59: 59 CLS Outpatient GEE AMADO MD [id number] 03/29/2014 12:12:00 03/29/2014 23:59: 59 CLS Outpatient GEE AMADO MD [id number] 03/23/2014 13:24:00 03/23/2014 23:59: 59 CLS Outpatient GEE AMADO MD [id number] 03/06/2014 13:45:00 03/06/2014 23:59: 59 CLS Outpatient LALITO TERRAZAS APRN [id number] 02/20/2014 14:47:00 02/20/2014 23:59: 59 CLS Outpatient GEE AMADO MD [id number] 02/06/2014 16:34:00 02/06/2014 23:59: 59 CLS Outpatient GEE AMADO MD [id number] 12/14/2013 00:00:00 12/14/2013 23:59: 59 CLS Outpatient WHITE DDSIBAN [id number] 10/23/2013 09:58:00 10/23/2013 23:59: 59 CLS Outpatient VAN LAWRENCE APRN [id number] 09/08/2013 09:39:00 09/08/2013 23:59: 59 CLS Outpatient WADE JUSTICE DOLAN [id number] 07/28/2013 08:44:00 07/28/2013 23:59: 59 CLS Outpatient MAURO DOLANJUSTICE [id number] 06/06/2013 15:27:00 06/06/2013 23:59: 59 CLS Outpatient WHITE DDSJOELLE Gillian [id number] 05/30/2013 09:38:00 05/30/2013 23:59: 59 CLS Outpatient GEE AMADO MD [id number] 04/25/2013 08:38:00 04/25/2013 23:59: 59 CLS Outpatient WHITE DDIBAN Graham [id number] 03/05/2013 00:00:00 03/05/2013 23:59: 59 CLS Outpatient JUSTICE WADE DO [id number] 02/24/2013 07:56:00 02/24/2013 23:59: 59 CLS Outpatient GEE AMADO MD [id number] 01/30/2013 08:00:00 01/30/2013 23:59: 59 CLS Outpatient WHITE DDSIBAN [id number] 12/19/2012 00:00:00 12/19/2012 23:59: 59 CLS Outpatient WHITE DDIBAN Graham [id number] 05/24/2012 09:24:00 05/24/2012 23:59: 59 CLS Outpatient GEE AMADO MD [id number] 04/25/2012 09:57:00 04/25/2012 23:59: 59 CLS Outpatient GEE AMADO MD [id number] 04/13/2012 09:38:00 04/13/2012 23:59: 59 [place] [id number] 01/14/2012 14:34:00 01/14/2012 23:59:5 9 CLS Outpatient GEE AMADO MD [id number] 11/23/2012 10:51:00 Document Registration [id number] 08/05/2012 09:03:00 Document Registration [id number] 10/02/2019 15:06:00 23:59:59 CLS Outpatient LICHA MARAVILLA, GEETA [facility] ONC [id number] 2019 15:52:00 14:32:00 DIS Outpatient BOOM MILLER MD [facility] ICU AFIB/RVR [id number] 07/20/2019 17:37:00 17:00:00 DIS Inpatient DOMENICA SMITH MD [facility] 4TH SEVERE ANEMIA [id number] 07/19/2019 17:18:00 23:59:59 CLS Outpatient ENMA PETERS CORN MILLER [facility] RAD FS POSS PHENOMENA [id number] 04/17/2019 08:13:00 23:59:59 CLS Outpatient LETTY WILLAMS APRN [facility] RT DYSPNEA,ALLERGI C RHINITIS,COUGH,COPD [id number] 03/31/2019 11:00:00 23:59:59 CLS Outpatient ILANA SANTAMARIA MD [facility] RAD ATHEROSCLEROSIS [id number] 03/09/2019 12:45:00 23:59:59 CLS Outpatient ILANA SANTAMARIA MD [facility] LAB 440.70 [id number] 03/02/2019 12:20:00 23:59:59 CLS Outpatient ILANA SANTAMARIA MD [facility] RAD CLAUDICATION [id number] 02/17/2019 14:50:00 14:00:00 DIS Inpatient LOPEZ DO, ZACK V [facility] IRF ENCEPHALOPATHY [id number] 02/05/2019 08:41:00 10:25:00 DIS Emergency ALEXA SOLIZ MD [facility] ER FS PT FOUND UNRESPONSIVE [id number] 01/13/2019 11:15:00 13:35:00 DIS Inpatient LOPEZ DO, ZACK V [facility] IRF DEBILITY [id number] 01/10/2019 08:09:00 11:15:00 DIS Inpatient LOPEZ DO, ZACK V [facility] 4TH SOA, HEART FAILURE, DM2 , OBESITY, CKD [id number] 07/21/2018 19:26:00 14:57:00 DIS Inpatient Jaime GARSIA MD [facility] ICU AFIB,BRADYCARDIA,CARDIO GENIC SHOCK [id number] 07/11/2018 21:48:00 02:40:00 DIS Emergency MICHAEL DE LA GARZA MD [facility] ER FS FEVER,SOB [id number] 05/31/2018 00:10:00 23:59:59 CLS Preadmit BOOM MILLER MD [facility] LAB ENCOUNTER FOR MONITORIN G COUMADIN THERAPY [id number] 03/29/2018 12:33:00 00:01:00 DIS Outpatient BOOM MILLER MD [facility] LAB ENCOUNTER FOR MONITORIN G COUMADIN THERAPY [id number] 03/09/2018 08:29:00 17:05:00 DIS Outpatient BOOM MILLER MD [facility] CATH CP,CAD,PAF,HTN [id number] 02/05/2018 16:36:00 23:59:59 CLS Outpatient BOOM MILLER MD [facility] LAB PT/INR LAB [id number] 09/01/2017 11:42:00 06/13/2 018 23:59:59 CLS Preadmit INGRIS MARAVILLA, GEE Farrar [facility] RAD MEDICARE ANNUAL WELLNES S VISIT,INITIAL [id number] 06/28/2017 00:42:00 018 23:59:59 CLS Preadmit BOOM MILLER MD [facility] LAB I48.91 [id number] 06/15/2017 10:55:00 018 00:01:00 DIS Outpatient BOOM MILLER MD [facility] LAB I48.91 [id number] 04/03/2017 19:54:00 07:02:00 DIS Outpatient BOOM MILLER MD [facility] SLEEP G47.33 OBSTRUCTIVE SLEE P APNEA [id number] 03/24/2017 08:12:00 018 23:59:59 CLS Outpatient BOOM MILLER MD [facility] CATH ATRIAL FIBRILLATION [id number] 03/05/2017 08:13:00 017 13:30:00 DIS Outpatient BOOM MILLER MD [facility] CATH ABN STRESS TEST, CAD, H TN [id number] 03/01/2017 07:44:00 017 23:59:59 CLS Outpatient BOOM MILLER MD [facility] CARD AORTIC VALVE SCLEROSIS [id number] 02/22/2017 11:38:00 017 23:59:59 CLS Outpatient BOOM MILLER MD [facility] CARD I35.8 AORTIC VALVE SCLE ROSIS [id number] 09/11/2015 07:51:00 016 23:59:59 CLS Outpatient ILANA SANTAMARIA MD [facility] RAD STENOSIS [id number] 08/09/2015 17:28:00 016 23:59:59 CLS Outpatient XANDER ESQUIVEL MD [facility] RAD CERVICAL RADICULOPATHY [id number] 03/13/2015 07:10:00 12/23/2 015 14:20:00 DIS Outpatient BOOM MILLER MD [facility] CATH HTN,HLP,CAD,CP [id number] 02/27/2015 11:59:00 23:59:59 CLS Outpatient BOOM MILLER MD [facility] CARD HTN,HLD,CPS [id number] 10/31/2013 10:27:00 014 23:59:59 CLS Outpatient VAN LAWRENCE APRN [facility] RAD SCREENING [id number] 08/28/2013 08:36:00 17:20:00 DIS Outpatient BOOM MILLER MD [facility] CATH CAD,CP,HLP,HTN,DM [id number] 08/18/2013 12:27:00 23:59:59 CLS Outpatient JEFRY FLOREZ, HELENE Topete [facility] CARD CAD,CP,HLP, HTN,DM [id number] 10/26/2012 12:11:00 013 14:26:00 DIS Emergency CURLY MARAVILLA, RK Phillip [facility] ER ELEVATED BP [id number] 10/26/2019 18:01:00 Document Registration [id number] 08/07/2015 09:49:00 Document Registration [id number] 11/13/2011 14:00:00 Document Registration [id number] 06/01/2019 15:00:00 06/01/2019 23:59: 59 CLS Outpatient INGRIS MARAVILLA, GEE [facility] [id number] 07/19/2019 15:40:00 Document Registration [id number] 06/01/2019 15:00:00 Document Registration [id number] 08/29/2018 15:45:00 Document Registration [id number] 08/18/2018 09:00:00 Document Registration [id number] 01/17/2018 13:40:00 Document Registration [id number] 07/26/2019 15:00:00 07/29/2019 13:52 :00 DIS Inpatient Zack Lopez enter [facility] [id number] 07/26/2019 14:44:25 Document Registration
[2019-10-26 21:45] VITALS: BP 172/60
== END 2019-10-26 21:45 ==
LOC: ER FS 17:47 → EDUNIT# 17:47 → ER FS 21:45
DX: S09.90XA Unspecified injury of head, initial encounter (principal); S00.11XA Contusion of right eyelid and periocular area, initial encounter; S00.532A Contusion of oral cavity, initial encounter; E11.649 Type 2 diabetes mellitus with hypoglycemia without coma; J44.9 Chronic obstructive pulmonary disease, unspecified; I48.91 Unspecified atrial fibrillation; I25.10 Atherosclerotic heart disease of native coronary artery without angina pectoris; E78.00 Pure hypercholesterolemia, unspecified; I10 Essential (primary) hypertension; K21.9 Gastro-esophageal reflux disease without esophagitis; G89.29 Other chronic pain; M54.9 Dorsalgia, unspecified; M25.551 Pain in right hip; M25.552 Pain in left hip; K59.09 Other constipation; Z79.01 Long term (current) use of anticoagulants; Z79.4 Long term (current) use of insulin; Z79.891 Long term (current) use of opiate analgesic; Z88.8 Allergy status to other drugs, medicaments and biological substances; Z86.711 Personal history of pulmonary embolism; Z88.5 Allergy status to narcotic agent; Z79.51 Long term (current) use of inhaled steroids; Z87.891 Personal history of nicotine dependence; Z95.5 Presence of coronary angioplasty implant and graft; W19.XXXA Unspecified fall, initial encounter
CPT/HCPCS: 36415; 70450; 80053; 82962; 85025; 96374

== ENCOUNTER → 2020-08-07 | Outpatient (CLI) | payer MEDICARE, OTHER, MEDICAID ==
[~2020-08-07] MED LIST changes: -AMIO200T4 PO; +AMIO200T6 PO; +AMLO-251 PO; -AMLO10TA7 PO; +ASPI-1238 PO; -ASPI-983 PO; +CATHETER FLUSH 10 ML SYR IV PRN; +CLN.1T PO; -CLON0.1T PO; -DEXTROSE 50% 50 ML (IMS) SYR ONE; -DRON400T2 PO; +DRON400T6 PO; +ISOS60TA63 PO; -LISI-552 PO; +LISI20TA26 PO; -METF-760 PO; +METF-845 PO; -PANT40TA3 PO; +PANT40TA52 PO; +REGADENOSON 0.4 MG/5 ML SYR (LEXISCAN) IV ONE
[2020-08-07 10:02] VITALS: BP 185/94
--- NOTE | 2020-08-07 12:24 | Cardiology Stress Test Report ---
Stress Test Report Date of Procedure/Referring: Date of Procedure: August 07, 2020 PCP Boom West MD Admitting Physician Obdulio aCbral MD Indications: CP Baseline Heart Rate: 84 Baseline Blood Pressure: Blood Pressure Systolic: 185 Blood Pressure Diastolic: 94 Baseline Vitals Vital Signs Date Time Temp Pulse Resp B/P (MAP) Pulse Ox O2 Delivery O2 Flow Rate FiO2 08/07/20 10:02 84 185/94 (124) 97 Baseline EKG: Baseline EKG: NSR Summary After explaining the procedure to the patient, she signed a consent and then brought to the stress nuclear laboratory. Patient received 0.4 mg Lexiscan for stress test, ECG, heart rate and blood pressure were monitored continuously. Resting and stress dose of radio tracer were injected, imaging was acquired and reviewed in short axis, horizontal long axis and vertical long axis views. TID: .98 SSS: 16 SDS: 12 EF: 56 1. Patient tolerated Lexiscan well 2. Baseline atrial paced rhythm, diffuse T wave inversion noted persisted during test 3. Breast attenuation with reversible ischemia involving the whole anterior wall anterior apical segment and anterolateral wall 4. Normal left ventricular size, EF 56% BOOM WEST MD August 07, 2020 12:24
== END ==
LOC: CARD 08:30
PROVIDERS: ATTEND Internal Medicine Cardiovascular Disease
DX: R07.9 Chest pain, unspecified (principal)
CPT/HCPCS: 78452; 93017; A9502

== ENCOUNTER 2020-08-28 10:00 | Day surgery (SDC) | payer MEDICARE, OTHER, MEDICAID ==
[2020-08-28] VITALS (9 sets, daily range): BP systolic 130–150; BP diastolic 59–73
[~2020-08-28 10:00] MED LIST changes: -CATHETER FLUSH 10 ML SYR IV PRN; +HEParin (CATH LAB) 2,000 ML IV ONE; +LIDOCAINE 1% INJ 20 ML 20 ML VIAL ONE; +NS IV 1000 ML 1,000 ML ONE; -REGADENOSON 0.4 MG/5 ML SYR (LEXISCAN) IV ONE
--- NOTE | 2020-08-28 10:45 | Diagnostic Imaging Report ---
Portable erect AP chest at 1024h. INDICATION: Preop No chest complaints The cardiomegaly and left-sided pacemaker and loop recorder device seen on the prior exam of 08/24/2019 are again evident and no different. The central pulmonary vascularity does not seem as pronounced as on the prior exam. At this time there is no evidence for failure or pneumonia. There is no significant pleural effusion identified either. The mediastinum is not widened. The osseous structures are intact. Orthopedic hardware is again seen overlying the cervicothoracic junction. IMPRESSION: There is cardiomegaly but there is no evidence for an acute cardiopulmonary abnormality. Dictated by: Dictated on workstation # [id number]
[2020-08-28 10:57] LABS: HEMATOCRIT 42 % (35-52); HEMOGLOBIN 12.7 g/dL (11.5-16.0); MEAN CORPUSCULAR HEMOGLOBIN 27 pg (25-34); MEAN CORPUSCULAR HGB CONC 31 g/dL (32-36); MEAN CORPUSCULAR VOLUME 89 fL (80-99); MEAN PLATELET VOLUME 10.7 fL (9.0-12.2); PLATELET COUNT 162 10^3/uL (130-400); WHITE BLOOD COUNT 7.7 10^3/uL (4.3-11.0)
[2020-08-28] MEDS ORDERED: FERR500P12 MC (11:13)
[2020-08-28] MEDS ORDERED: MTP100TCR PO (11:13)
[2020-08-28] MEDS ORDERED: fentaNYL INJ 100 MCG/2 ML AMP ONE (11:13)
[2020-08-28] MEDS ORDERED: MIDAZOLAM 5 MG/5 ML (VERSED) VIAL ONE (11:13)
[2020-08-28] MEDS ORDERED: METF-397 PO (11:13)
[2020-08-28 11:20] LABS: INR 1.2 (0.8-1.4); PROTHROMBIN TIME PATIENT 15.7 SEC (12.2-14.7)
[2020-08-28 11:27] LABS: ALBUMIN 3.9 GM/DL (3.2-4.5); BILIRUBIN,TOTAL 0.3 MG/DL (0.1-1.0); CALCIUM 10.8 MG/DL (8.5-10.1); CREATININE SERUM 1.84 MG/DL (0.60-1.30); POTASSIUM 4.3 MMOL/L (3.6-5.0); TOTAL PROTEIN 7.9 GM/DL (6.4-8.2)
--- NOTE | 2020-08-28 11:38 | Conscious Sedation/ASA ---
Conscious Sedation Pre-Proced Time 11:37 ASA Score 3 For ASA 3 and 4: Consider anesthesia and medical clearance. Also, for patients with a history of failed moderate sedation consider anesthesia. Airway Lungs Heart ASA score ASA 1: a normal healthy patient ASA 2: a patient with a mild systemic disease (mid diabetes, controlled hypertension, obesity x ASA 3: a patient with a severe systemic disease that limits activity (angina, COPD, prior Myocardial infarction) ASA 4: a patient with an incapacitating disease that is a constant threat to life (CHF, renal failure) ASA 5: a moribund patient not expected to survive 24 hrs. (ruptured aneurysm) ASA 6: a declared brain- patient whose organs are being harvested. For emergent operations, add the letter E after the classification Mallampati Classification Grade 3 Sedation Plan Analgesia, Amnesia, Plan communicated to team members, Discussed options with patient/fam, Discussed risks with patient/fam The patient is an appropriate candidate to undergo the planned procedure, sedation, and anesthesia. The patient immediately re-assessed prior to indication. BOOM MILLER MD Aug 28, 2020 11:38 am
--- NOTE | 2020-08-28 13:29 | Discharge Inst-Post CATH ---
Discharge Inst-CATH/EP Problems Reviewed?: Yes Post Cardiac Cath/EP D/C Inst Follow Up/Plan Schedule an appointment with Dr. Marcus Bautista for next week Appointment with Dr. West's office in 2 to 4 weeks <b>CARDIAC CATH/EP PROCEDURE DISCHARGE INSTRUCTIONS</b> ACTIVITY * Go Home directly and rest. * Limit activity of the leg (or wrist if it was used) for 7 days including aerobics, swimming, jogging, bicycling, etc. * Restrict stair-climbing for 7 days if possible, if not, climb up with your non-cath leg, then bring together on the same step. * Avoid lifting, pushing, pulling or excessive movement of the affected extremity for 7 days. * Customary sexual activity may be resumed after 2 days-use caution not to use a position that strains or causes pain to the affected extremity. * No driving for 24 hours. * NO SMOKING. * Avoid straining for bowel movements for 7 days. * Gentle walking on level ground is allowed. * Returning to work will depend on the type of procedure and the results. Your doctor will discuss this with you. CALL YOUR DOCTOR FOR ANY OF THE FOLLOWING: *If bleeding from the puncture site occurs- Apply gentle pressure to site with clean cloth and call your doctor or EMS. * If a knot or lump forms under the skin, increases in size, or causes pain. * If bruising appears to be worsening or moving further down your leg instead of disappearing. * Temperature above 101 F. CARE OF YOUR GROIN INCISION; * Bruising or purple discoloration of the skin near the puncture site is common. * You may shower only, no bathtub bathing for 5 days. Be careful to avoid slipping as your leg may feel stiff. * If a closure device was used on your femoral artery, please see the attached guide regarding care of the device and your leg. * Leave dressing on FOR 24 hours. CARE OF YOUR WRIST INCISION; * Bruising or purple discoloration of the skin near the puncture site is common. * You may shower. * DO NOT submerge wrist. * Leave dressing on FOR 24 hours. BOOM WEST MD Aug 28, 2020 1:29 pm
[2020-08-28] MEDS ORDERED: PATIENT MAY USE OWN MEDS, ALL PO SCH (13:30)
[2020-08-28] MEDS ORDERED: NS IV 1000 ML 1,000 ML IV SCH (13:30)
--- NOTE | 2020-08-28 13:36 | Cardiac Cath Report ---
Cardiac Cath Report Physician (s)/Tank Setter (s) Physician BOOM MILLER MD Pre-Procedure Diagnosis Pre-Procedure Diagnosis: Coronary artery disease peripheral arterial disease Post-Procedure Note Procedure Start Date: Aug 28, 2020 Name of Procedure: Left heart catheterization Bilateral lower extremity runoff Third order Additional imaging x3 Findings/Procedure Note PROCEDURE NOTE: 65-year-old lady had history of coronary artery disease multiple intervention, had an abnormal stress test, has been having lower extremities pain, had an abnormal SAUL scheduled for bilateral runoff in addition to coronary angiogram. Patient has underlying creatinine 1.8, she was scheduled for the procedure and I decided to proceed with very minimal contrast used. After explaining the procedure to the patient, all pros and cons were explained, all questions were answered. The patient signed the consent and then she was placed on the cardiac catheterization laboratory. Groin was prepped SL fashion local anesthesia was used. Sheath placed in the right femoral artery. Raquel right and left catheter were used to access the coronary system. Raquel right was prolapsed to the left ventricular cavity, pressure was measured pullback LV to aorta was done. No left ventriculogram was done. Using Raquel right catheter I advanced a Storq wire in 2 the left SFA and then exchanged the catheter and used straight catheter placed at the common femoral artery and runoff to the left leg was done using 4 mL of contrast then I advanced a Storq wire again and advanced a straight catheter down to the popliteal artery and DSA imaging was done to the trifurcation then the pressure was recorded and the catheter was pulled back to the mid SFA and recorded the pressure of the proximal SFA then iliac artery then the straight catheter was removed and I did runoff to the right leg through the sheath then repeated the runoff and used 4 mL of contrast through the sheath and evaluated DSA imaging the trifurcation on the right side. At the end of the procedure the sheath was removed. Closure device was deployed FINDINGS: Hemodynamics LV 156/31, end-diastolic pressure 31 Aorta 165/73 mean of 103 Left lower extremity pressure recording: Popliteal 116/80/ 84 Mid SFA 134/62/94 Proximal SFA 142/66/96 Left iliac 142/66/95 ANATOMY: Left Main has moderate to severe stenosis at the distal left main Left Anterior Descending has a stent at the ostium/proximal with moderate to severe stenosis at the ostial LAD and moderate stenosis at the mid Left Circumflex has severe stenosis calcified lesion in the proximal circumflex Right Coronary Artery is calcified artery with moderate disease nonobstructive disease LV Gram was not done, pressure was measured Left lower extremity evaluation: There is moderate to severe stenosis in the mid left SFA, total occlusion of the posterior tibial and peroneal artery getting filled by collaterals, the anterior tibial artery is patent Right lower extremity: Mild disease in the right SFA, total occlusion of the anterior tibial and peroneal artery, the posterior tibial is patent CONCLUSION: 1. Severe coronary artery disease including distal left main, ostial LAD and proximal circumflex artery 2. Severe peripheral arterial disease below the knee, single-vessel runoff below the knee on both legs, there is moderate to severe lesion in the mid left SFA with pressure gradient during pullback of 25 mmHg 3. Elevated left ventricular end-diastolic pressure DISCUSSION AND RECOMMENDATION: Patient will be referred for evaluation for cardiac surgery, we will continue to monitor her vascular status will consider intervention to the SFA. Anesthesia Type: Conscious Sedation Estimated blood loss (mL): 25 ml Contrast Amount: 27 ml Total Radiation Dose: 664 mGy Post-Procedure Diagnosis Post-operative diagnosis: Coronary artery disease Claudication Hypertension Hyperlipidemia BOOM MILLER MD Aug 28, 2020 1:36 pm
== END 2020-08-28 17:15 | disposition home or self-care (01) ==
LOC: CATH 10:00 → SDC 12:49 → CATH 17:15
PROVIDERS: ATTEND Internal Medicine Cardiovascular Disease
DX: I73.9 Peripheral vascular disease, unspecified (principal); I25.10 Atherosclerotic heart disease of native coronary artery without angina pectoris; I10 Essential (primary) hypertension; I49.5 Sick sinus syndrome; G47.33 Obstructive sleep apnea (adult) (pediatric); J44.9 Chronic obstructive pulmonary disease, unspecified; E11.9 Type 2 diabetes mellitus without complications; E66.9 Obesity, unspecified; E78.2 Mixed hyperlipidemia; G89.29 Other chronic pain; I65.23 Occlusion and stenosis of bilateral carotid arteries; Z79.899 Other long term (current) drug therapy; Z79.01 Long term (current) use of anticoagulants; Z87.891 Personal history of nicotine dependence; Z98.890 Other specified postprocedural states; Z95.5 Presence of coronary angioplasty implant and graft; Z99.81 Dependence on supplemental oxygen; Z79.84 Long term (current) use of oral hypoglycemic drugs; Z68.37 Body mass index [BMI] 37.0-37.9, adult; Z87.448 Personal history of other diseases of urinary system
CPT/HCPCS: 71045; 75716; 80053; 80061; 85027; 85610; 85730; 87081; 93458; C1760; C1769; C1894; 36415

== ENCOUNTER → 2020-09-28 | Outpatient (CLI) | payer MEDICARE, OTHER, MEDICAID ==
[~2020-09-28] MED LIST changes: +FERR500P12 MC; -HEParin (CATH LAB) 2,000 ML IV ONE; -LIDOCAINE 1% INJ 20 ML 20 ML VIAL ONE; +MTP100TCR PO; -NS IV 1000 ML 1,000 ML ONE
== END ==
LOC: LAB FS 10:48
PROVIDERS: ATTEND Thoracic Surgery (Cardiothoracic Vascular Surgery)
DX: N18.4 Chronic kidney disease, stage 4 (severe) (principal)
CPT/HCPCS: 82570; 84156

== ENCOUNTER → 2020-10-04 | Outpatient (CLI) | payer MEDICARE, OTHER, MEDICAID ==
--- NOTE | 2020-10-04 10:34 | Diagnostic Imaging Report ---
PROCEDURE: US Renal Bilateral. TECHNIQUE: Multiple real-time grayscale images were obtained over the kidneys in various projections bilaterally. INDICATION: Chronic kidney disease stage III. Right kidney measures 12.8 x 5.5 x 5.5 cm, left kidney measures 12.2 x 6.1 x 5.8 cm. Cortical thickness and echogenicity is normal. No calculi are seen. There is no hydronephrosis. Bladder volume is 620 mL. No postvoid residual volume is seen. The ureteral jets were not visualized. IMPRESSION: Unremarkable renal ultrasound. Dictated by: Dictated on workstation # [id number]
== END ==
LOC: RAD 09:20
PROVIDERS: ATTEND Nurse Practitioner
DX: N18.32 Chronic kidney disease, stage 3b (principal)
CPT/HCPCS: 76770

== ENCOUNTER 2020-10-24 14:03 | Emergency (ER) | payer MEDICARE, OTHER, MEDICAID ==
[~2020-10-24] VITALS: Ht 163 cm; Wt 100.0 kg
[2020-10-24 14:10] VITALS: BP 198/90
[2020-10-24] MEDS ORDERED: ACETAMINOPHEN 500 MG TAB (TYLENOL) PO STA (14:17)
--- NOTE | 2020-10-24 14:36 | ED Lower Extremity ---
General Chief Complaint: Lower Extremity Stated Complaint: LT FOOT INJ Nursing Triage Note: Patient presents to the ED with c/o left foot swelling and bruising. She states that her cat knocked off her metal water jug off of her chair onto her foot. She reports the jug was full of ice water. Source: patient Exam Limitations: no limitations History of Present Illness Date Seen by Provider: Oct 24, 2020 Time Seen by Provider: 14:14 Initial Comments Here with report of left foot pain and bruising after her cat knocked her metal water jug off the arm of her chair onto her foot. She states the dog was full of ice and water. She states that it was quite heavy. Has had pain since the injury. She was wearing flip-flops at the time. Denies other injury or concerns. She is on blood thinners and does have diabetes. She is complaining of some tingling of her foot as well as the pain. She has not had anything for pain and she does not like to take pain medicines nor has she tried ice or elevation. She is walking with some pain. Onset: this morning Severity: moderate Pain/Injury Location: left foot Method of Injury: direct blow Modifying Factors: Improves With Immobilization; Worse With Movement Allergies and Home Medications Allergies Coded Allergies: amiodarone (Verified Allergy, Intermediate, Shortness of Breath, 08/22/19) morphine (Verified Adverse Reaction, Severe, hallucination, 07/12/18) Home Medications Albuterol Sulfate 18 Gm Hfa.aer.ad, 2 PUFF PO Q6H PRN for SHORTNESS OF BREATH, (Reported) Amiodarone HCl 200 Mg Tablet, 200 MG PO UD Take 2 tablets twice daily for one week then Take one tablet twice daily Prescribed by: BOOM MILLER on 08/24/19902 Atorvastatin Calcium 40 Mg Tablet, 40 MG PO HS, (Reported) Cinnamon Bark 500 Mg Capsule, 500 MG PO BID, (Reported) Cyclobenzaprine HCl 10 Mg Tablet, 20 MG PO BID PRN for MUSCLE SPASMS, (Reported) Diltiazem HCl 240 Mg Cap.er.24h, 240 MG PO DAILY Prescribed by: BOOM MILLER on 08/24/19902 Doxazosin Mesylate 1 Mg Tablet, 1 MG PO HS, (Reported) Dulaglutide 0.75 Mg/0.5 Ml Pen.injctr, 0.75 MG SC [place], (Reported) Fenofibrate,Micronized 134 Mg Capsule, 134 MG PO HS, (Reported) Fluticasone/Salmeterol 1 Each Blst.w.dev, 2 PUFF PO BID PRN for SHORTNESS OF BREATH, (Reported) Gabapentin 600 Mg Tablet, 600 MG PO BID, (Reported) Hydrocodone Bit/Acetaminophen 1 Each Tablet, 1 EA PO TID PRN for PAIN-MODERATE (5-7), (Reported) Insulin Aspart 100 Unit/1 Ml Susp, UNIT SQ TIDAC, (Reported) USES PER SLIDING SCALE Insulin Detemir 100 Unit/1 Ml Insuln.pen, 40 UNIT SQ HS, (Reported) Isosorbide Mononitrate 60 Mg Tab, 60 MG PO DAILY, (Reported) Magnesium Oxide 400 Mg Tablet, 400 MG PO HS, (Reported) Metformin HCl 500 Mg Tablet, 500 MG PO BID, (Reported) Metoprolol Succinate 100 Mg Tab.er.24h, 100 MG PO DAILY, (Reported) Multivitamin-Min/Iron/FA/Vit K 1 Each Tablet, 1 TAB PO DAILY, (Reported) [place]-3/Dha/Epa/Fish Oil 1 Each Capsule, 1,000 MG PO DAILY, (Reported) Primidone 50 Mg Tablet, 50 MG PO HS, (Reported) Rivaroxaban 20 Mg Tablet, 20 MG PO HS, (Reported) Sennosides/Docusate Sodium 1 Each Tablet, 2 TAB PO HS, (Reported) Spironolactone 25 Mg Tablet, 25 MG PO DAILY, (Reported) Sucralfate 1 Gm Tablet, 1 GM PO QIDACHS, (Reported) Torsemide 10 Mg Tablet, 10 MG PO DAILY, (Reported) Patient Home Medication List Home Medication List Reviewed: Yes Review of Systems Constitutional: no symptoms reported Respiratory: no symptoms reported Musculoskeletal: joint pain, muscle pain Skin: change in color; No lesions Psychiatric/Neurological: Tingling; Denies Weakness Past Immqvnr-Fvxgyr-Hxdvwt Hx Patient Social History Tobacco Use?: No Smoking Status: Former Smoker Use of E-Cig and/or Vaping dev: No Substance use?: No Alcohol Use?: No Pt feels they are or have been: No Immunizations Up To Date Tetanus Booster (TDap): Unknown PED Vaccines UTD: Yes First/Initial COVID19 Vaccinat: April 2020 Second COVID19 Vaccination Greg: May 2020 COVID19 Vaccine Lurer: Moderna Seasonal Allergies Seasonal Allergies: No Past Medical History Surgeries: Yes (neck and back surgeries) Coronary Stent, Gallbladder, Hysterectomy, Orthopedic Respiratory: Yes Pneumonia, Pulmonary Embolism, Sleep Apnea, COPD Currently Using CPAP: Yes Currently Using BIPAP: No Cardiac: Yes (stents-has loop recorder placement) Atrial Fibrillation, Coronary Artery Disease, High Cholesterol, Hypertension Neurological: No Reproductive Disorders: No Genitourinary: No Bladder Infection, Renal Failure Gastrointestinal: Yes Gastroesophageal Reflux, Gastrointestinal Bleed, Chronic Constipation, Pancreatitis Musculoskeletal: Yes (CHRONIC HIP PAIN BILATERALLY, FX NECK) Arthritis, Chronic Back Pain Endocrine: Yes Diabetes, Insulin dep, Diabetes, Non-Insulin dep HEENT: No Loss of Vision: Denies Hearing Impairment: Denies Cancer: No Psychosocial: Yes Anxiety Integumentary: No Blood Disorders: No Family Medical History Reviewed Nursing Family Hx Patient reports no known family medical history. Diabetes, Hypertension Physical Exam Vital Signs Vital Signs - First Documented 10/24/20 14:10 Temp 36.7 Pulse 85 Resp 18 B/P (MAP) 198/90 (126) Pulse Ox 93 O2 Delivery Room Air Capillary Refill : Less Than 3 Seconds Height, Weight, BMI Height: 5'4.00" Weight: 219lbs. 1.0oz. 99.992502an; 37.00 BMI Method:Stated General Appearance: WD/WN, no apparent distress Cardiovascular: regular rate, rhythm, no murmur Respiratory: lungs clear, normal breath sounds Feet: left foot ecchymosis, left foot soft tissue tenderness, left foot swelling, left foot other (Findings are at the proximal dorsum of the foot midline over the area of the second and third metatarsal.) Neurologic/Psychiatric: alert, normal mood/affect Skin: warm/dry, ecchymosis (As described above) Progress/Results/Core Measures Results/Orders My Orders Orders - RK RAWLS MD Foot 3 View Left (10/24/20 14:17) Acetaminophen Tablet (Tylenol Tablet) (10/24/20 14:17) Vital Signs/I&O 10/24/20 14:10 Temp 36.7 Pulse 85 Resp 18 B/P (MAP) 198/90 (126) Pulse Ox 93 O2 Delivery Room Air Blood Pressure Mean: 126 Progress Progress Note : Progress Note Seen and evaluated. I did offer and she did accept Tylenol/acetaminophen for pain. 1 g ordered. We will give ice pack and get x-ray of the left foot. Monitor patient. 1458: No acute fracture noted. Discharged home with return precautions. Patient verbalized understanding instructions and agreement with plan. Diagnostic Imaging Diagonstic Imaging: Xray Plain Films/CT/US/NM/MRI: other Comments NAME: [facility] REC#: [id number] PT STATUS: REG ER : 1955 PHYSICIAN: RK RAWLS MD ADMIT DATE: 10/24/20/ER FS Draft Date of Exam:10/24/20 FOOT 3 VIEW LEFT INDICATION: Left foot pain, post injury. AP, oblique, lateral views of the left foot are obtained. No fracture or acute bony abnormality seen. Joint spaces are unremarkable. IMPRESSION: Negative left foot. Dictated on workstation # [id number] Dict: 10/24/20 1440 Trans: 10/24/20 1443 [facility] [id number] Interpreted by: TALIA STOVALL MD Electronically signed by: Departure Impression Primary Impression: Contusion of foot, left Qualified Codes: S90.32XA - Contusion of left foot, initial encounter Disposition: 01 HOME, SELF-CARE Condition: Stable Departure-Patient Inst. Decision time for Depature: 14:59 Referrals: GEE AMADO MD (PCP/Family) Primary Care Physician Patient Instructions: Contusion (DC) Add. Discharge Instructions: All discharge instructions reviewed with patient and/or family. Voiced understanding. You may use ice packs to area of concern 20 minutes/h as needed to reduce swelling and pain. Elevate the foot as needed to reduce swelling and pain. You may take Tylenol/acetaminophen 1000 mg every 6-8 hours as needed for pain. Follow-up with your doctor in a few days for recheck if not improved. Return for worse pain, swelling, numbness or other concerns as needed. RK RAWLS MD Oct 24, 2020 14:35
--- NOTE | 2020-10-24 14:43 | Diagnostic Imaging Report ---
INDICATION: Left foot pain, post injury. AP, oblique, lateral views of the left foot are obtained. No fracture or acute bony abnormality seen. Joint spaces are unremarkable. IMPRESSION: Negative left foot. Dictated by: Dictated on workstation # [id number]
== END 2020-10-24 15:02 | disposition home or self-care (01) ==
LOC: EDUNIT# 14:03 → ER FS 14:05
DX: S90.32XA Contusion of left foot, initial encounter (principal); G47.30 Sleep apnea, unspecified; J44.9 Chronic obstructive pulmonary disease, unspecified; I10 Essential (primary) hypertension; E78.00 Pure hypercholesterolemia, unspecified; I25.10 Atherosclerotic heart disease of native coronary artery without angina pectoris; E11.9 Type 2 diabetes mellitus without complications; G89.29 Other chronic pain; M54.9 Dorsalgia, unspecified; K21.9 Gastro-esophageal reflux disease without esophagitis; I48.91 Unspecified atrial fibrillation; Z87.891 Personal history of nicotine dependence; Z86.711 Personal history of pulmonary embolism; Z79.01 Long term (current) use of anticoagulants; Z79.899 Other long term (current) drug therapy; Z79.4 Long term (current) use of insulin; Z79.891 Long term (current) use of opiate analgesic; W20.8XXA Other cause of strike by thrown, projected or falling object, initial encounter
CPT/HCPCS: 73630